=== PATIENT | male | born 1955 | race Caucasian/White ===

== ENCOUNTER → 2019-05-21 11:10 | Outpatient (CLI) | payer MEDICARE, OTHER, SELFPAY ==
[2019-05-21 10:32] VITALS: BMI 37.9
--- NOTE | 2019-05-21 11:15 | RAD_ITS ---
STUDY: X-RAY CHEST REASON FOR EXAM: Male, 64 years old. SOB -- CABG 2002, 3 stents 2014, 2 stents 2019 -- aortic valve replacement TECHNIQUE: PA and lateral views of the chest. COMPARISON: 06/27/2014 FINDINGS: Status post median sternotomy. The lungs are clear and expanded. There is no demonstrated pleural abnormality. Normal size heart. Normal mediastinum and héctor. Normal visualized pulmonary arteries. Normal visualized aortic arch and descending thoracic aorta. Normal visualized thoracic spine. Normal visualized ribs, clavicles, and shoulders. There is no demonstrated abnormality of the visualized soft tissue structures of the upper abdomen. RAD/Chest PA and Lateral IMPRESSION: No active disease. Electronically Signed: Rios Rosario MD at 12:08 EST Tel , Service support ,
[2019-05-21 12:58] LABS: Anion Gap 3 (5-15); BUN 17 mg/dL (7-18); BUN/Creat Ratio 12.3 RATIO (10-20); Calcium,Total 8.8 mg/dL (8.5-10.1); Chloride 110 mmol/L (98-107); Creatinine, Serum 1.38 mg/dL (0.70-1.30); EST Glomerular Filtration Rate 55 mL/min (>60); Est Glom Filt Rate - Afr Amer 67 mL/min (>60); Glucose 100 mg/dL (74-106); Potassium 3.8 mmol/L (3.5-5.1); Sodium Level 143 mmol/L (136-145)
[2019-05-21 13:28] LABS: BNP,B-Type NATRIURETIC PEPTIDE 77.8 pg/mL (0-100)
== END ==
PROVIDERS: PCP Family Medicine; Referring Provider Internal Medicine Cardiovascular Disease; Visit Provider Internal Medicine Cardiovascular Disease
DX: R06.00 Dyspnea, unspecified (principal); Z95.1 Presence of aortocoronary bypass graft; Z95.2 Presence of prosthetic heart valve
CPT/HCPCS: 36415; 71046; 80048; 83880

== ENCOUNTER → 2020-06-25 05:55 | Outpatient (CLI) | payer MEDICARE, OTHER, SELFPAY ==
[2020-06-18 08:32] VITALS: BMI 33.6
--- NOTE | 2020-06-25 05:59 | ECHOD_ITS ---
Reason For Study: S/P CABG Procedure This was a 2D Doppler, Color Flow transthoracic echocardiogram. Exam performed in department. Left Ventricle Normal LV size. Left ventricular systolic function is normal. The estimated ejection fraction is 65 %. Stage 1 diastolic dysfunction. No regional wall motion abnormalities noted. Aortic Valve Peak aortic valve gradient 18 mmHg. Mean aortic valve gradient 10 mmHg. Stable appearing bioprosthetic aortic valve apparatus. Great Vessels Normal aortic root. The pulmonary artery is normal size. Pericardium/Pleural No pericardial effusion. MMode/2D Measurements & Calculations LVIDd: 4.5 cm IVSd: 1.3 cm LVOT diam: 2.0 cm LVIDs: 3.0 cm LVPWd: 1.2 cm RVDd: 3.1 cm FS: 32.6 % LVOT area: 3.1 cm2 Ao root diam: 3.3 cm LAV(MOD-bp): 39.7 ml LVAd ap4: 28.3 cm2 LAV(MOD-bp) Indexed: 20.2 ml/m2 EDV(MOD-sp4): 82.1 ml LAV(MOD-sp2): 38.1 ml EDV(sp4-el): 84.4 ml LAV(MOD-sp4): 42.6 ml LVAs ap4: 16.0 cm2 ESV(MOD-sp4): 33.8 ml ESV(sp4-el): 32.9 ml EF(MOD-sp4): 58.8 % EF(sp4-el): 61.0 % SV(MOD-sp4): 48.3 ml SV(sp4-el): 51.5 ml LA A4 area: 17.2 cm2 LA dimension(2D): 3.9 cm RA A4 area: 13.1 cm2 Time Measurements MV dec time: 0.23 sec Doppler Measurements & Calculations MV E max wilner: 70.9 cm/sec Lat Peak E' Wilner: 11.6 cm/sec Med Peak E' Wilner: 7.8 cm/sec MV A max wilner: 100.7 cm/sec E/E' lat: 6.1 E/E' med: 9.1 MV E/A: 0.70 Ao V2 max: 212.8 cm/sec LV V1 max: 106.0 cm/sec SV(LVOT): 57.5 ml Ao max P.1 mmHg LV V1 max P.5 mmHg Ao V2 mean: 149.4 cm/sec LV V1 mean P.3 mmHg Ao mean P.3 mmHg LV V1 mean: 70.3 cm/sec Ao V2 VTI: 34.9 cm LV V1 VTI: 18.3 cm COLE(I,D): 1.6 cm2 COLE(V,D): 1.6 cm2 PA V2 max: 125.7 cm/sec Interpretation Summary Normal LV size. Left ventricular systolic function is normal. The estimated ejection fraction is 65 %. Stable appearing bioprosthetic aortic valve apparatus. Mean aortic valve gradient 10 mmHg. Stage 1 diastolic dysfunction. Ordering Physician: Haroldo Noland Referring Physician: DANE RAYMOND Performed By: Jessi Thompson RDCS
--- NOTE | 2020-06-25 15:50 | STRESSREP ---
Stress Test Report Exercise myocardial perfusion stress test. Preoperative stress test for esophageal surgery. 65-year-old man with a history of aortic valve replacement and coronary artery bypass surgery. Stress protocol: Resting EKG demonstrates normal sinus rhythm with a rate of 90 bpm resting blood pressure is 116/74 mmHg. The patient exercised according to the regular Christiano protocol for a total duration of 6 minutes minutes completing stage II of the Christiano protocol the maximum heart rate attained was 151 bpm which was 98% of max impacted heart rate the maximum workload was 7 metabolic equivalents. At rest there were no ST or T wave changes noted to suggest ischemia. At peak exercise there were no ST or T wave changes noted to suggest ischemia. No clinical angina was noted. The peak blood pressure 144/82 mmHg which was good blood pressure response to exercise the rate-pressure product was 21,700. The test was terminated due to dyspnea. Myocardial perfusion protocol. 14.5 mCi of technetium 99m sestamibi was injected at rest. The patient exercised according to regular Christiano protocol for 6 minutes and at peak exercise 44.6 mCi of technetium 99m sestamibi was injected stress images were obtained stress and rest images were reconstructed and compared in the short axis vertical long and horizontal long axis. Gated images were also obtained Perfusion SPECT analysis: Review of the stress images demonstrate normal uptake of tracer noted in all areas of the myocardium the resting images demonstrated a similar pattern. There were no areas of reversibility to suggest ischemia. No previous infarct was noted. Gated SPECT analysis: The gated ejection fraction is noted to be 59%. Conclusion: Normal exercise myocardial perfusion stress test at a moderate workload with no evidence of ischemia. Good functional capacity. No angina noted.
== END ==
PROVIDERS: PCP Family Medicine; Referring Provider Internal Medicine Cardiovascular Disease; Visit Provider Internal Medicine Cardiovascular Disease
DX: Z01.810 Encounter for preprocedural cardiovascular examination (principal); I25.10 Atherosclerotic heart disease of native coronary artery without angina pectoris; R07.9 Chest pain, unspecified
CPT/HCPCS: 78452; 93017; 93306; A9500; A4216

== ENCOUNTER → 2021-01-07 08:44 | Outpatient (CLI) | payer MEDICARE, OTHER, SELFPAY ==
[2021-01-07 10:05] LABS: AST(SGOT) 14 U/L (15-37); Alanine Aminotransfer ALT/SGPT 27 U/L (16-61); Albumin, Serum 3.3 g/dL (3.2-5.0); Alkaline Phosphatase 102 U/L (45-117); Bilirubin, Direct 0.23 mg/dL (0.00-0.30); Cholesterol 126 mg/dL (200); Globulin 3.4 g/dL (2.2-4.2); High Density Lipoprotein 44 mg/dL; Protein, Total 6.7 g/dL (6.4-8.2); Triglycerides 113 mg/dL; Very Low Density Lipoprotein 23 mg/dL (5-40)
== END ==
PROVIDERS: PCP Family Medicine; Referring Provider Nurse Practitioner Family; Visit Provider Nurse Practitioner Family
DX: E78.5 Hyperlipidemia, unspecified (principal); I10 Essential (primary) hypertension; Z95.1 Presence of aortocoronary bypass graft; Z95.5 Presence of coronary angioplasty implant and graft
CPT/HCPCS: 36415; 80061; 80076

== ENCOUNTER 2021-01-07 12:11 | Observation (INO) | payer MEDICARE, OTHER, SELFPAY ==
[2021-01-07] VITALS (12 sets, daily range): BP systolic 121–142; BP diastolic 69–105; PULSE 65–93; RESP 18–28; TEMP 36.6–37; O2SAT 95–98; BMI 29.1; BMI 28.6
--- NOTE | 2021-01-07 12:23 | RAD_ITS ---
STUDY: X-RAY CHEST REASON FOR EXAM: Male, 65 years old. SOB TECHNIQUE: Single AP portable view of the chest. COMPARISON: Comparison is made FINDINGS: There are now small bilateral pleural effusions with bibasilar atelectasis. Hyperinflation. Sternal cerclage wires and vascular clips are present from a prior sternotomy and coronary artery bypass graft procedure (CABG). Normal mediastinum and héctor. Normal visualized pulmonary arteries. Normal visualized aortic arch and descending thoracic aorta. Normal visualized thoracic spine. Normal visualized ribs, clavicles, and shoulders. There is no demonstrated abnormality of the visualized soft tissue structures of the upper abdomen. RAD/Chest 1 View (Portable) IMPRESSION: Small bilateral pleural effusions with bibasilar atelectasis. Electronically Signed: Nino Wood MD at 13:32 EDT , Service support ,
--- NOTE | 2021-01-07 12:23 | EKG12_ITS ---
Test Reason : SOB Blood Pressure : / mmHG Vent. Rate : 072 BPM Atrial Rate : 072 BPM P-R Int : 130 ms QRS Dur : 094 ms QT Int : 416 ms P-R-T Axes : 046 055 001 degrees QTc Int : 455 ms Sinus rhythm with marked sinus arrhythmia Otherwise normal ECG Confirmed by RONA MANNING, PATRICK ([id number]), video editor CHRISTIANO OWENS ([id number]) on 01/10/2021 8:09:44 AM Referred By: Martha Anderson Confirmed By:PARTICK REA MD
--- NOTE | 2021-01-07 14:06 | EKG12_ITS ---
Test Reason : AM Blood Pressure : / mmHG Vent. Rate : 060 BPM Atrial Rate : 060 BPM P-R Int : 136 ms QRS Dur : 098 ms QT Int : 430 ms P-R-T Axes : 018 013 027 degrees QTc Int : 430 ms Sinus rhythm with marked sinus arrhythmia Otherwise normal ECG When compared with ECG of 07-JAN-2021 13:33, MANUAL COMPARISON REQUIRED, DATA IS UNCONFIRMED Confirmed by RONA MANNING, PATRICK ([id number]), newspaper copy editor CHRSITIANO OWENS ([id number]) on 01/10/2021 12:56:52 PM Referred By: Martha Anderson Confirmed By:PATRICK REA MD
[2021-01-07 14:13] LABS: Basophil# 0.03 X10^3/uL; Basophil% 0.8 % (0-1); Eosinophil# 0.04 X10^3/uL; Hematocrit 36.5 % (40-54); Hemoglobin 11.8 g/dL (13.0-16.5); Lymphocyte % 12.8 % (19-41); Mean Corp Hgb Conc 32.3 g/dL (32-36); Mean Corpuscular Hgb 28.7 pg (27.0-32.0); Mean Corpuscular Volume 88.8 fL (80-94); Mean Platelet Vol. 9.9 fl (6.2-12.0); Monocyte# 0.34 X10^3/uL; Monocyte% 8.7 % (0-10); NRBC Flagged by Analyzer 0 % (0-5); Neutrophil # 2.98 X10^3/uL (2.7-7.7); Neutrophil % 75.9 % (47-70); POSITIVE DIFFERENTIAL YES; Platelet Count 144 K/mm3 (150-450); RBC Distribution Width CV 14.6 % (11.6-14.6); RBC Distribution Width SD 47.3 fl (35.1-43.9); Red Blood Count 4.11 M/mm3 (4.6-6.2); White Blood Count 3.9 K/mm3 (4.4-11.0)
[2021-01-07 14:14] LABS: Differential Indicated SCAN CRITERIA MET
--- NOTE | 2021-01-07 14:15 | EDS_ITS ---
HPI History of Present Illness Chief Complaint: Shortness of Breath Informant: patient Onset/Context/Timing Onset: Days Context: gradual Timing: Intermittent Quality: Positive for Dyspnea on exertion; Negative for Orthopnea, PND and Wheezing Current Severity: Gone Maximum Severity: Mild Worsened by: Exertion Relieved by: Rest Associated Symptoms Negative for cough, rhinorrhea, post nasal drip, ear pain, fever, sore throat, subjective, chills, sweats, clear sputum, white sputum, yellow sputum or green sputum Chest Pain: Positive for None Narrative Narrative: 65-year-old male history of prior quadruple bypass 2002. He also has 5 cardiac stents. He denies any prior CT. He is also had a TAVR procedure in 2019. Patient also had a history of esophageal CA for which earlier this year he had a partial esophagectomy and partial gastrectomy. Denies ever having a DVT or PE. No hemoptysis. No leg pain or swelling. He denies any chest pain. States he has noticed recently has been more short of breath primarily with exertion. They also commented today when he was at his oncologist office. He states he parked down from the emergency department as he walked up the ramp he got very short of breath. That is now since resolved. He had similar shortness of breath when he had coronary blockage. PE Risk Factors: Positive for Cancer; Negative for OCP + Smoking + > 35, Prior DVT or PE, Recent immobilization, Recent surgery and Recent travel Prior similar symptoms: Yes Recent Illness/Hospitalization: No [facility] Medical History (Updated 01/07/21 @ 15:[address] Rikki Jernigan MD) abnormal stress test Angina pectoris 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 angina pectoris Atherosclerosis of coronary artery of [place] heart without angina pectoris Atherosclerotic heart disease of [place] coronary artery with other forms of angina pectoris Encounter for long-term current use of high risk medication Essential (primary) hypertension Exertional chest pain Hyperlipidemia Ischemic heart disease due to coronary artery obstruction Non-rheumatic aortic stenosis Nonrheumatic aortic valve disorder Syncope and collapse URI (upper respiratory infection) Home Medications aspirin 81 mg PO DAILY@0800 01/23/14 [History Last Taken 01/06/21] nitroglycerin 0.4 mg sublingual tablet 0.4 mg SUBLINGUAL Q5M PRN #25 tab 01/29/19 [Rx Last Taken Unknown] losartan 100 mg tablet 100 mg PO DAILY #90 tab 09/24/20 [Rx Last Taken 01/06/21] metoprolol tartrate 25 mg tablet 25 mg PO BID #180 tab 09/24/20 [Rx Last Taken 01/06/21] amlodipine 10 mg tablet 10 mg PO DAILY #90 tab 09/28/20 [Rx Last Taken 01/06/21] atorvastatin 80 mg tablet 80 mg PO QHS #90 tab 12/30/20 [Rx Last Taken 01/06/21] ezetimibe 10 mg tablet 10 mg PO DAILY #90 tab 12/30/20 [Rx Last Taken 01/06/21] ondansetron HCl 8 mg PO Q8H PRN 01/07/21 [History Last Taken 01/06/21] pantoprazole 40 mg PO DAILY 01/07/21 [History Last Taken 01/06/21] Allergy/AdvReac Type Severity Reaction Status Date / Time No Known Allergies Allergy Verified 01/07/21 12:15 environmental Allergy Intermediate itchy eyes Uncoded 01/07/21 12:15 Family History Father Heart disease Myocardial infarction Hypertension Brother Hypertension Sister Heart disease Myocardial infarction Surgical History (Updated 01/07/21 @ 15:[address] Rikki Jernigan MD) H/O coronary artery bypass surgery (09/18/02) History of aortic valve replacement (03/03/19) History of coronary artery stent placement (12/31/18) History of hernia repair History of tonsillectomy Social History Smoking Status: Never smoker alcohol intake: never substance use type: does not use caffeine: No what type of physical activity do you participate in: walking frequency: daily ROS ROS ED ROS Narrative Denies recent illness. Review of Systems ROS Unobtainable: Denies due to encephalopathy Constitutional Constitutional ED: Denies chills or fever(s) Eyes Eyes: Denies change in vision ENT ENT ED: Denies ear pain or sore throat Cardiovascular Cardiovascular: Denies chest pain, orthopnea or palpitations Respiratory/Chest Respiratory/Chest: Reports dyspnea and dyspnea on exertion; Denies cough, orth opnea or sputum Gastrointestinal Gastrointestinal: Denies abdominal pain, constipation, diarrhea, nausea or vomiting Genitourinary Genitourinary ED: Reports dysuria; Denies hematuria Musculoskeletal Musculoskeletal: Denies myalgias Integumentary Denies rash Neurologic Neurologic: Denies headache(s) Psychiatric Psychiatric: Denies depression Endocrine Endocrinology: Denies polyuria Hematologic/Lymphatic Hematologic/Lymphatic: Denies easy bruising Allergic/Immunologic Allergic/Immunologic ED: Denies urticaria EXAM Physical Exam Narrative Exam Narrative: Six 5-year-old male no acute distress currently symptom-free. Exam unremarkable. Calves nontender without edema or cords. Heart regular rate and rhythm in the 90s. Lungs are clear. Const Vital Signs: 01/07/21 12:12 01/07/21 14:03 01/07/21 14:05 Temperature 97.8 F Temperature Source Temporal Pulse Rate 93 67 Respiratory Rate 28 H 24 H Respiratory Effort Short of Breath Respiratory Depth Normal Respiratory Pattern Hyperpnea Blood Pressure 140/105 H 138/79 H Blood Pressure Mean 116 98 Pulse Ox 97 97 Oxygen Delivery Method Room Air Room Air Room Air 01/07/21 14:10 Temperature Temperature Source Pulse Rate Respiratory Rate Respiratory Effort Respiratory Depth Respiratory Pattern Blood Pressure Blood Pressure Mean Pulse Ox 97 Oxygen Delivery Method Room Air Positive well nourished and well developed; Negative for obese, cachectic, contractures or unkempt General Appearance ED: well developed and NAD; Negative for unkempt, cachectic or contractures Nutritional Appearance: Negative for cachectic or obese HEENT Reports moist mucous membranes atraumatic; Negative for trauma or tenderness Eyes PERRL and EOMs intact bilaterally General Eye ED: Negative for pale conjunctiva or scleral icterus Neck no lymphadenopathy, supple, no meningeal signs and no JVD General: Negative for tenderness Resp normal respiratory effort and clear to auscultation bilaterally Auscultation: Negative for rales, rhonchi or wheezes Cardio regular rate, regular rhythm, S1 normal heart sound, S2 normal heart sound and no murmurs GI non-tender, non-distended and no masses Auscultation: normoactive bowel sounds Palpation: soft; Negative for tender or guarding Back/Spine normal to inspection; Negative for no CVA tenderness Extremity normal to inspection General Extremety ED: Negative for edema or tenderness General Extremity: Negative for edema Neuro oriented x3 Sensorium / Orientation: alert, oriented to person, oriented to place and oriented to time; Negative for orientation impaired, confused, lethargic or stuporous Motor Exam: strength 5/5 throughout Psych mental status grossly normal Appearance: Negative for unkempt Skin no wounds Lesions: no lesions Rashes: no rashes MDM MDM MDM Narrative Medical decision making narrative: Six 5-year-old male with a history of cardiac disease with 5 stents and prior quadruple bypass. With recent onset of exertional dyspnea. Undergoing a cardiac work-up. His Covid was negative his chest x-ray showed a small right pleural effusion. Repeat exam patient doing well at 3:20 PM. I did discuss with his oncologist who called in who wanted me to add a D-dimer. Hospitalist will admit for exertional dyspnea. Patient will be admitted to the PCU. Lab Data Attestation: I reviewed the patient's lab results. Lab results narrative: CBC shows a white count of 3.9. Hemoglobin 11.8. Platelets 144. Electrolytes unremarkable gap is 7 creatinine 1.3. Troponin XV. Labs: Laboratory Results - last 24 hr 01/07/21 01/07/21 01/07/21 14:00 14:00 14:00 WBC 3.9 L RBC 4.11 L Hgb 11.8 L Hct 36.5 L MCV 88.8 MCH 28.7 MCHC 32.3 RDW Std Deviation 47.3 H RDW Coeff of Marcos 14.6 Plt Count 144 L MPV 9.9 Immature Gran % (Auto) 0.800 Neut % (Auto) 75.9 H Lymph % (Auto) 12.8 L [place] % (Auto) 8.7 Eos % (Auto) 1.0 Baso % (Auto) 0.8 Absolute Neuts (auto) 3.0 Absolute Lymphs (auto) 0.50 L Nucleated RBC % 0 Sodium 142 Potassium 4.0 Chloride 108 H Carbon Dioxide 27.0 Anion Gap 7 BUN 17 Creatinine 1.33 H Estim Creat Clear Calc 56.41 Est GFR (MDRD) Af Amer 69 Est GFR (MDRD) Non-Af 57 L BUN/Creatinine Ratio 12.8 Glucose 84 Calcium 9.0 Troponin I High Sens 15 Procalcitonin 0.06 Radiography Chest X-Ray - ED: 1 View, Read by ED Physician, Read by Radiologist, Heart, Mediastinum, Bony Structures, No Acute Disease, Right Effusion and Left Effusion Diagnostic Testing: Radiology Impression Chest X-Ray 01/07/21 12:23 IMPRESSION: Small bilateral pleural effusions with bibasilar atelectasis. Electronically Signed: Nino Wood MD at 13:32 EDT , Service support , Portable chest x-ray interpreted by the myself the radiologist shows chronic changes and small bilateral effusions. Rhythm Strip Rhythm Strip: Sinus Rhythm Rate: 72 Ectopy: None EKG Initial EKG: Attestation: I personally reviewed and interpreted this EKG as follows: Interpretation: Sinus Rhythm and No Acute Injury Pattern Comments: Sinus rhythm rate of [address] no acute signs of CT or ischemia. Discharge Plan Triage Chief Complaint: Shortness of Breath ED Provider: Rikki Jernigan Dx/Rx/DC Orders Clinical Impression: Exertional dyspnea, Esophageal carcinoma, History of acquired heart disease, History of four vessel coronary artery bypass graft Prescriptions: No Action nitroglycerin 0.4 mg tablet, sublingual 0.4 mg SUBLINGUAL Q5M PRN (Reason: Chest Pain) Qty: 25 RF: 3 ezetimibe 10 mg tablet 10 mg PO DAILY Qty: 90 RF: 3 atorvastatin 80 mg tablet 80 mg PO QHS Qty: 90 RF: 3 aspirin 81 MG tablet,chewable 81 mg PO DAILY@0800 RF: 0 ondansetron HCl 8 mg tablet 8 mg PO Q8H PRN (Reason: Nausea) RF: 0 pantoprazole 40 mg tablet,delayed release (DR/EC) 40 mg PO DAILY RF: 0 losartan 100 mg tablet 100 mg PO DAILY Qty: 90 RF: 3 metoprolol tartrate 25 mg tablet 25 mg PO BID Qty: 180 RF: 3 amlodipine 10 mg tablet 10 mg PO DAILY Qty: 90 RF: 3 Primary Care Provider: Yaw Singh Referrals: Yaw Singh MD [Primary Care Provider] - Disposition Disposition: Acute Care Hospital [facility]
[2021-01-07 14:33] LABS: Anion Gap 7 (5-15); BUN 17 mg/dL (7-18); BUN/Creat Ratio 12.8 RATIO (10-20); Chloride 108 mmol/L (98-107); Creatinine, Serum 1.33 mg/dL (0.70-1.30); EST Glomerular Filtration Rate 57 mL/min (>60); Est Glom Filt Rate - Afr Amer 69 mL/min (>60); Estimated Creatinine Clearance 56.41 ml/min; Glucose 84 mg/dL (74-106); Sodium Level 142 mmol/L (136-145); Troponin-I HS 15 pg/mL (3.0-78.0)
[2021-01-07 14:36] LABS: Procalcitonin 0.06 ng/mL (0.00-0.09)
--- NOTE | 2021-01-07 15:24 | HP.PCM.HOS_ITS ---
[facility] - General General Date of Admission: 01/07/21 Date of Service: 01/07/21 Chief Complaint: Shortness of breath HPI Narrative NICKO ROSALES, is a 65 M who presents with shortness of breath that came on suddenly. Patient was on his way to his oncology appointment when he felt very short of breath. He has history of esophageal CA diagnosed on 13 September. He is going through radiation and chemotherapy. He had gastrectomy as well as osteoph ytectomy on 09 August. Patient stated that he had one third of his stomach and two thirds of his esophagus removed. He denied any complaints of chest pain or dizziness or palpitation. No leg swelling. No weight gain. Shortness of breath was worse with exertion. His vitals in the ED have been stable. He denied any fever or chills. [facility] Medical History abnormal stress test Angina pectoris 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 angina pectoris Atherosclerosis of coronary artery of [place] heart without angina pectoris Atherosclerotic heart disease of [place] coronary artery with other forms of angina pectoris Encounter for long-term current use of high risk medication Essential (primary) hypertension Exertional chest pain Hyperlipidemia Ischemic heart disease due to coronary artery obstruction Non-rheumatic aortic stenosis Nonrheumatic aortic valve disorder Syncope and collapse URI (upper respiratory infection) Home Medications aspirin 81 mg PO DAILY@0800 01/23/14 [History Last Taken 01/06/21] nitroglycerin 0.4 mg sublingual tablet 0.4 mg SUBLINGUAL Q5M PRN #25 tab 01/29/19 [Rx Last Taken Unknown] losartan 100 mg tablet 100 mg PO DAILY #90 tab 09/24/20 [Rx Last Taken 01/06/21] metoprolol tartrate 25 mg tablet 25 mg PO BID #180 tab 09/24/20 [Rx Last Taken 01/06/21] amlodipine 10 mg tablet 10 mg PO DAILY #90 tab 09/28/20 [Rx Last Taken 01/06/21] atorvastatin 80 mg tablet 80 mg PO QHS #90 tab 12/30/20 [Rx Last Taken 01/06/21] ezetimibe 10 mg tablet 10 mg PO DAILY #90 tab 12/30/20 [Rx Last Taken 01/06/21] ondansetron HCl 8 mg PO Q8H PRN 01/07/21 [History Last Taken 01/06/21] pantoprazole 40 mg PO DAILY 01/07/21 [History Last Taken 01/06/21] Allergy/AdvReac Type Severity Reaction Status Date / Time No Known Allergies Allergy Verified 01/07/21 12:15 environmental Allergy Intermediate itchy eyes Uncoded 01/07/21 12:15 Family History Father Heart disease Myocardial infarction Hypertension Brother Hypertension Sister Heart disease Myocardial infarction Surgical History H/O coronary artery bypass surgery (09/18/02) History of aortic valve replacement (03/03/19) History of coronary artery stent placement (12/31/18) History of hernia repair History of tonsillectomy Social History Smoking Status: Never smoker alcohol intake: never substance use type: does not use caffeine: No what type of physical activity do you participate in: walking frequency: daily ROS ROS Narrative Constitutional: Reports: Denies: Anorexia, Chills, Fever, Night Sweats, Weight Change Eyes: Denies: Blurred vision, Cataracts, Conjunctivae Inflammation, Pain, Redness, Vision Change HEENT: Denies: Difficulty Hearing, Difficulty Swallowing, Head Aches, Hearing Changes, Sinus Congestion, Sinus Drainage Cardiovascular: See HPI Respiratory: See HPI Gastrointestinal: Denies: Abdominal Pain, Nausea, Vomiting Genitourinary: Denies: Dysuria Musculoskeletal: Denies: Joint Pain, Joint stiffness, Joint swelling, Joint Tenderness Skin: Denies: Rash, Wounds Neurological: Denies: Numbness, Tingling, Focal weakness Vital Signs Vital Signs Vital Signs: 01/07/21 12:12 01/07/21 14:03 01/07/21 14:05 Temperature 97.8 F Temperature Source Temporal Pulse Rate 93 67 Respiratory Rate 28 H 24 H Respiratory Effort Short of Breath Respiratory Depth Normal Respiratory Pattern Hyperpnea Blood Pressure 140/105 H 138/79 H Blood Pressure Mean 116 98 Pulse Ox 97 97 Oxygen Delivery Method Room Air Room Air Room Air 01/07/21 14:10 Temperature Temperature Source Pulse Rate Respiratory Rate Respiratory Effort Respiratory Depth Respiratory Pattern Blood Pressure Blood Pressure Mean Pulse Ox 97 Oxygen Delivery Method Room Air Weight Weight: 92.079 kg Body Mass Index (BMI) 29.1 Physical Exam Narrative Physical exam: General: Alert, Oriented x3, Cooperative, No apparent distress, Well developed HEENT: Atraumatic Oral: Moist Mucosa Neck: Supple Lungs: Clear to auscultation Cardiovascular: HS I+II, regular, no murmurs Abdomen: Bowel Sounds Present, Soft, Non Tender Extremities: No edema Results Lab / Micro Data Result Diagrams: 01/07/21 14:00 01/07/21 14:00 Labs: Laboratory Results - last 24 hr 01/07/21 14:00: WBC 3.9 L, RBC 4.11 L, Hgb 11.8 L, Hct 36.5 L, MCV 88.8, MCH 28.7, MCHC 32.3, RDW Std Deviation 47.3 H, RDW Coeff of Marcos 14.6, Plt Count 144 L, MPV 9.9, Immature Gran % (Auto) 0.800, Neut % (Auto) 75.9 H, Lymph % (Auto) 12.8 L, [place] % (Auto) 8.7, Eos % (Auto) 1.0, Baso % (Auto) 0.8, Absolute Neuts (auto) 3.0, Absolute Lymphs (auto) 0.50 L, Nucleated RBC % 0 01/07/21 14:00: Sodium 142, Potassium 4.0, Chloride 108 H, Carbon Dioxide 27.0, Anion Gap 7, BUN 17, Creatinine 1.33 H, Estim Creat Clear Calc 56.41, Est GFR (MDRD) Af Amer 69, Est GFR (MDRD) Non-Af 57 L, BUN/Creatinine Ratio 12.8, Glucose 84, Calcium 9.0, Troponin I High Sens 15 01/07/21 14:00: Procalcitonin 0.06 Micro: Microbiology 01/07/21 13:20 Nasal Secretion SARS-CoV-2 Antigen (Rapid) - Final Rhythm Strip Rhythm Strip: Sinus Rhythm Rate: 72 Ectopy: None Radiology Impression Chest X-Ray 01/07/21 12:23 IMPRESSION: Small bilateral pleural effusions with bibasilar atelectasis. Electronically Signed: Nino Wood MD at 13:32 EDT , Service support , Assessment & Plan Assessment/Plan (1) Exertional dyspnea: (2) Essential (primary) hypertension: (3) Esophageal carcinoma: (4) History of four vessel coronary artery bypass graft: PLAN: 1. Dyspnea on exertion, sudden onset, concerning for possible acute PE Patient's oxygen saturation is 98% on room air in the ED D-dimer is elevated at 1.83. BNP is 52.3. Admitting troponin is 15 Will get a CTA of the of the chest to rule out acute PE Gentle IV fluids in the light of CKD Check 2D echo Consider stress test if CTA chest is negative for acute PE Trend cardiac enzymes 2. Esophageal CA, status post surgery, radiation therapy and chemotherapy, currently on Opdivo Follow-up with oncology in the outpatient 3. Pancytopenia likely secondary to chemotherapy, will trend 4. CKD stage IIIb, admitting creatinine is 1.33, baseline creatinine between 1.1 and 1.3 Continue on gentle IV fluids, trend 5. CAD status post CABG, status post stent/status post aortic valve replacement/hypertension/hyperlipidemia, all remained stable Continue on ezetimibe, losartan, metoprolol, amlodipine, aspirin I discussed and explained in details the various types of CODE STATUS-full code, DNR CCA, DNR CC. Patient chose to be full code Time spent discussing CODE STATUS 16 minutes Charges/Coding Visit Charges Inpatient E&M: 69160 Init Hosp L3 Procedures Hospitalists Procedures: 91654 Advncd Care Plan 30 Min
--- NOTE | 2021-01-07 15:39 | NURSING ---
PCU OBS NUAMAH EXERTIONAL DYSPNEA, HS CAD, HX CABG, ES CA
[2021-01-07 16:02] LABS: BNP,B-Type NATRIURETIC PEPTIDE 52.3 pg/mL (0-100)
--- NOTE | 2021-01-07 16:17 | ECHOD_ITS ---
Reason For Study: Dyspnea/SOB Procedure This was a 2D Doppler, Color Flow transthoracic echocardiogram. Exam performed in department. Left Ventricle Normal left ventricle. The estimated ejection fraction is EF 55-60 %. Right Ventricle Normal right ventricle. Normal systolic function. Atria Normal left atrium. Normal right atrium. Mitral Valve There is mild mitral annular calcification. Tricuspid Valve Normal tricuspid valve. Aortic Valve Normal Apperaing Bioprothetic AV function with trivial AI COLE 2.1 cm2 Mean gradient 12.2 mmhg. Pulmonic Valve The pulmonic valve is not well visualized. Great Vessels Normal aortic root. Pericardium/Pleural No pericardial effusion. MMode/2D Measurements & Calculations LVIDd: 4.9 cm IVSd: 1.4 cm LVOT diam: 2.0 cm LVIDs: 2.6 cm LVPWd: 1.1 cm LVOT area: 3.3 cm2 RVDd: 2.7 cm FS: 45.9 % Ao root diam: 3.4 cm LAV(MOD-bp): 36.0 ml LA A4 area: 12.5 cm2 LAV(MOD-bp) Indexed: 17.1 ml/m2 LAV(MOD-sp2): 46.0 ml LAV(MOD-sp4): 27.5 ml LA dimension(2D): 4.6 cm RA A4 area: 11.9 cm2 Doppler Measurements & Calculations MV E max wilner: 92.0 cm/sec Lat Peak E' Wilner: 7.8 cm/sec Med Peak E' Wilner: 4.0 cm/sec MV A max wilner: 112.0 cm/sec E/E' lat: 11.8 E/E' med: 23.0 MV E/A: 0.82 Ao V2 max: 233.8 cm/sec LV V1 max: 147.2 cm/sec SV(LVOT): 107.1 ml Ao max P.9 mmHg LV V1 max P.7 mmHg Ao V2 mean: 167.3 cm/sec LV V1 mean P.5 mmHg Ao mean P.2 mmHg LV V1 mean: 112.5 cm/sec Ao V2 VTI: 42.1 cm LV V1 VTI: 32.5 cm COLE(I,D): 2.5 cm2 COLE(V,D): 2.1 cm2 PA V2 max: 128.1 cm/sec TR max wilner: 240.1 cm/sec TR max P.1 mmHg ECHO/Echo Complete Interpretation Summary The estimated ejection fraction is EF 55-60 %. Normal LV systolic functhion Mild LVH Grade # I Diastolic dysfunction Normal Apperaing Bioprothetic AV function with trivial AI COLE 2.1 cm2 Mean gradient 12.2 mmhg Ordering Physician: Martha Anderson Referring Physician: Yaw Singh Performed By: Flora Whitney, IRIS, RVT
[2021-01-07 16:56] LABS: D-Dimer Quantitative (DVT/PE) 1.83 FEU/ug/m (0.27-0.49)
--- NOTE | 2021-01-07 18:20 | CT_ITS ---
STUDY: CTA CHEST REASON FOR EXAM: Male, 65 years old. Elevated d-dimer. Labored breathing since 11:00 AM. History of cardiac stents. CABG procedure. Aortic valve replacement and esophageal cancer RADIATION DOSAGE (If Supplied By Facility): CTDIvol = ( 14.05 ) mGy, DLP = ( 499.23 ) mGycm TECHNIQUE: The examination was performed with the intravenous administration of IV 100mL Isovue-370. Post-processing of the angiographic images was performed, with multiplanar reformation and 3D reconstruction. Individualized dose optimization techniques were used for this CT. COMPARISON: Chest, 01/07/2021. CTA of the chest, 06/27/2014. FINDINGS: Normal enhancement of the main pulmonary artery and right and left pulmonary arteries. Normal enhancement of the bilateral peripheral pulmonary arteries. There is no demonstrated pulmonary embolism. Normal thoracic aorta and visualized great vessels. There is no demonstrated aortic dissection. Normal heart and pericardium. Evidence of CABG procedure and aortic valve replacement. There is evidence of a gastric pull-up procedure to the level of the nirmala. Mediastinum is otherwise unremarkable. Normal hilar regions. Normal visualized trachea and bronchi. The lungs are well expanded. Small bilateral pleural effusions with subsegmental atelectasis. No acute infiltrate or mass in the lungs. Normal pleura. Evidence of median sternotomy. Normal osseous structures. There are calcified granulomata within the spleen. CT/CTA Chest W/WO Contrast IMPRESSION: 1. No evidence of pulmonary embolus. 2. No aortic dissection or aneurysm. 3. Evidence of resection of the distal esophagus with gastric pull-up procedure. 4. Bilateral pleural effusions and atelectasis. 5. Evidence of prior CABG procedure. Electronically Signed: Dave Vásquez DO at 19:52 EDT Tel [phone], Service support ,
[2021-01-07] MEDS: 0.9% Normal Saline 1,000 ML 100 ML IV (20:25)
[2021-01-07] MEDS: 0.9% Saline Lock 10 ML Syringe IV (20:28)
--- NOTE | 2021-01-07 20:40 | PCS.PANDOC ---
PANDEMIC DOCUMENTATION INITIATED: Date: 11/22/2020 Time: 190
[2021-01-07 21:09] LABS: Troponin-I HS 14 pg/mL (3.0-78.0)
[2021-01-07] MEDS: Metoprolol Tartrate 25 MG Tablet PO (22:02)
[2021-01-07] MEDS: Atorvastatin Calcium 80 MG Tablet PO (22:03)
[2021-01-07 23:18] LABS: Troponin-I HS 14 pg/mL (3.0-78.0)
[2021-01-08] VITALS (9 sets, daily range): BP systolic 125–141; BP diastolic 75–86; PULSE 62–91; RESP 16–18; TEMP 36.4–36.9; O2SAT 96–98
[2021-01-08 02:43] LABS: Absolute Lymphocyte Count 0.42 X10^3/uL (0.83-4.51); Absolute Neutrophil Count 2.8 X10^3/uL (2.0-7.7); Basophil# 0.03 X10^3/uL; Basophil% 0.8 % (0-1); Eosinophils% 2.7 % (0-5); Hematocrit 33.2 % (40-54); Hemoglobin 10.5 g/dL (13.0-16.5); Lymphocyte # 0.42 X10^3/ul (0.83-4.51); Lymphocyte % 11.4 % (19-41); Mean Corp Hgb Conc 31.6 g/dL (32-36); Mean Corpuscular Hgb 28.4 pg (27.0-32.0); Mean Corpuscular Volume 89.7 fL (80-94); Mean Platelet Vol. 9.7 fl (6.2-12.0); Monocyte# 0.35 X10^3/uL; Monocyte% 9.5 % (0-10); NRBC Flagged by Analyzer 0 % (0-5); Neutrophil # 2.76 X10^3/uL (2.7-7.7); Neutrophil % 74.8 % (47-70); POSITIVE DIFFERENTIAL YES; Platelet Count 131 K/mm3 (150-450); RBC Distribution Width CV 14.7 % (11.6-14.6); RBC Distribution Width SD 47.9 fl (35.1-43.9); White Blood Count 3.7 K/mm3 (4.4-11.0)
[2021-01-08 02:56] LABS: Differential Indicated SCAN CRITERIA MET
[2021-01-08 03:08] LABS: Troponin-I HS 13 pg/mL (3.0-78.0)
[2021-01-08 03:12] LABS: AST(SGOT) 11 U/L (15-37); Alanine Aminotransfer ALT/SGPT 23 U/L (16-61); Albumin, Serum 2.8 g/dL (3.2-5.0); Alkaline Phosphatase 85 U/L (45-117); Anion Gap 6 (5-15); BUN 16 mg/dL (7-18); BUN/Creat Ratio 13.6 RATIO (10-20); Calcium,Total 8.4 mg/dL (8.5-10.1); Chloride 108 mmol/L (98-107); Creatinine, Serum 1.18 mg/dL (0.70-1.30); EST Glomerular Filtration Rate 66 mL/min (>60); Est Glom Filt Rate - Afr Amer 79 mL/min (>60); Estimated Creatinine Clearance 63.58 ml/min; Globulin 2.9 g/dL (2.2-4.2); Glucose 94 mg/dL (74-106); Potassium 3.9 mmol/L (3.5-5.1); Protein, Total 5.7 g/dL (6.4-8.2); Sodium Level 141 mmol/L (136-145)
[2021-01-08 04:24] LABS: Differential Comment SCANNED
[2021-01-08] MEDS: amLODIPine 10 MG Tablet PO (06:36)
[2021-01-08] MEDS: 0.9% Normal Saline 1,000 ML 100 ML IV (06:37)
[2021-01-08] MEDS: Losartan Potassium 100 MG Tablet PO (06:37)
--- NOTE | 2021-01-08 11:59 | PCM.DC ---
Discharge Instructions Diet Discharge Diet: No restrictions Activity Discharge Activity: Return to Normal Activity Weight Bearing Status: Weight bearing as tolerated Dressing / Incision Call your doctor if you observe: Fever of 101 or Higher, Numbness or Tingling, Shortness of breath, Dizziness, Chest pain, Increased palpitations (irregular heartbeat) and Calf discomfort Follow Up Care Please Follow Up With: Primary care provider When: Within the next two weeks. Test Results: Test results from this visit will be discussed in further detail at your follow-up appointment, if applicable. Discharge Plan Admission Admit Date/Time: 01/07/21 15:18 Primary Reason for Your Visit: Shortness of breath Attending Provider: Kody Avila Primary Care Provider: Yaw Singh Instructions Additional Instructions / Restrictions: Patient Problems: Altered Health Status related to Hospitalization Patient Goals: *Optimal Level of Health *Keep Appointments *Medication Compliance *Remain Safe Discharge Orders/Prescriptions Prescriptions: Continued nitroglycerin 0.4 mg tablet, sublingual 0.4 mg SUBLINGUAL Q5M PRN (Reason: Chest Pain) Qty: 25 RF: 3 ezetimibe 10 mg tablet 10 mg PO DAILY Qty: 90 RF: 3 atorvastatin 80 mg tablet 80 mg PO QHS Qty: 90 RF: 3 aspirin 81 MG tablet,chewable 81 mg PO DAILY@0800 RF: 0 ondansetron HCl 8 mg tablet 8 mg PO Q8H PRN (Reason: Nausea) RF: 0 pantoprazole 40 mg tablet,delayed release (DR/EC) 40 mg PO DAILY RF: 0 losartan 100 mg tablet 100 mg PO DAILY Qty: 90 RF: 3 metoprolol tartrate 25 mg tablet 25 mg PO BID Qty: 180 RF: 3 amlodipine 10 mg tablet 10 mg PO DAILY Qty: 90 RF: 3 Referrals / Follow Up: Yaw Singh MD [Primary Care Provider] - Within 2 Weeks Disposition Disposition (needs filled in before D/C Order can be placed): Home, Self Care
[2021-01-08] MEDS: Aspirin 81 MG TAB.CHEW PO (12:21)
[2021-01-08] MEDS: Ezetimibe 10 MG Tablet PO (12:21)
[2021-01-08] MEDS: Pantoprazole Sodium 40 MG Tablet PO (12:22)
[2021-01-08] MEDS: Metoprolol Tartrate 25 MG Tablet PO (12:22)
--- NOTE | 2021-01-08 12:45 | STRESSREP_ITS ---
Stress Test Report Pharmacologic Lexiscan sestamibi myocardial perfusion stress test. Indication; 65-year-old patient presented with symptoms shortness of breath History of esophageal cancer diagnosed in September 13 and treated with radiation and chemotherapy. History of gastrectomy, hypertension, hyperlipidemia CAD with CABG 2002 subsequently 2014 had drug-eluting stent to the distal RCA and SVG to diagonal drug-eluting stent, history of TAVR 2018 Stress protocol: Resting EKG demonstrates. Normal sinus rhythm. 0.4 mg of regadenoson was infused per usual protocol followed by rapid intravenous saline flush injection continuous EKG monitoring was performed. The maximum heart rate attained was 96 bpm which was 62% of maximum predicted heart . Stress EKG showed[, no significant change from the resting EKG, with maximum heart rate of 96 bpm. Arrhythmia: No arrhythmia demonstrated Symptoms: Patient had no symptoms of chest pain Blood pressure at rest: [152/78 mmHg blood pressure at the end of stress: 140/72 mmHg Myocardial perfusion protocol. [13.8 mCi ]of Technetium 99m Sestamibi was injected at rest. [ 0.4 mg ]of Regadenoson was infused per usual protocol peak infusion[43 mCi ]of Technetium 99m sestamibi was injected. Stress images were obtained stress and rest images were reconstructed and compared in the short axis vertical and horizontal long axis. Gated images were also obtained Perfusion SPECT analysis: Review of the images demonstrate normal uptake of sestamibi at rest, post stress images demonstrate similar uptake of sestamibi to the resting images, homogeneous tracer uptake With no evidence of reversible myocardial ischemia. Reduced tracer uptake in the inferior myocardium consistent with prior inferior PA. Gated SPECT analysis: The calculated ejection fraction is 69 %. Normal left ventricular wall motion and normal LV systolic function Conclusion: Negative Lexiscan sestamibi myocardial perfusion study for reversible myocardial ischemia Normal ventricular systolic function . Gurpreet Briones MD,FACC,[facility]
--- NOTE | 2021-01-08 13:48 | PCM.DC.SUM ---
Documented by User: Angel SOSA 01/08/21 13:56 Providers Date of Admission: 01/07/21 Primary Care Physician: Dr. Yaw Singh MD Reason For Visit: DYSPNEA Diagnosis Discharge Diagnosis (1) Exertional dyspnea: Status: Acute Code(s): R06.00 - Dyspnea, unspecified (2) Essential (primary) hypertension: Status: Chronic Code(s): I10 - Essential (primary) hypertension (3) Esophageal carcinoma: Status: Chronic Code(s): C15.9 - Malignant neoplasm of esophagus, unspecified (4) History of four vessel coronary artery bypass graft: Status: Deleted Code(s): Z95.1 - Presence of aortocoronary bypass graft Medications at Discharge Home Medications aspirin 81 mg PO DAILY@0800 01/23/14 nitroglycerin 0.4 mg sublingual tablet 0.4 mg SUBLINGUAL Q5M PRN #25 tab 01/29/19 losartan 100 mg tablet 100 mg PO DAILY #90 tab 09/24/20 metoprolol tartrate 25 mg tablet 25 mg PO BID #180 tab 09/24/20 amlodipine 10 mg tablet 10 mg PO DAILY #90 tab 09/28/20 atorvastatin 80 mg tablet 80 mg PO QHS #90 tab 12/30/20 ezetimibe 10 mg tablet 10 mg PO DAILY #90 tab 12/30/20 ondansetron HCl 8 mg PO Q8H PRN 01/07/21 pantoprazole 40 mg PO DAILY 01/07/21 Hospital Course Procedures 2-D Echocardiogram, Stress test and Transthoracic echo Summary of Care Provided Minutes Spent on Discharge: 35 Hospital Course: Disposition: Patient to be discharged home. 1) dyspnea on exertion According to patient dyspnea from admission has resolved. Patient is currently satting 98% on room air. D-dimer was elevated on admission, however CTA of the chest did not demonstrate any evidence of PE or arterial dissection. Echocardiogram demonstrates an EF of 60%, normal LV systolic function, mild left ventricular hypertrophy and grade 1 diastolic dysfunction. Echocardiogram appears stable from previous study done in June 2020. Stress test is normal and did not reveal any evidence of cardiac ischemia or infarction. Patient is to follow-up with primary care provider within the next 2 weeks. 2) esophageal cancer Status post surgery and radiation therapy. Patient follows with an oncologist as an outpatient, currently on Opdivo. 3) pancytopenia 3. Pancytopenia likely secondary to chemotherapy, will trend 4) CKD stage IIIb Creatinine is at baseline. Patient seen by Angel Eid PA-C, under the supervision of Margarita. Physical Exam Narrative Patient is a 65-year-old male comfortably resting in bed, alert and orient x3. Patient reports resolution of his shortness of breath from admission. Denies development of any new symptoms overnight. Denies chest pain, shortness of breath, palpitations, hemoptysis, sputum production, fever, chills, N/V/D. Const alert, oriented x3 and no apparent distress HEENT normocephalic, head/scalp atraumatic, hearing grossly normal bilaterally and moist oral mucous membranes Eyes PERRL, EOMs intact bilaterally and conjunctivae normal Neck no lymphadenopathy, supple and no JVD Resp normal respiratory effort, no retractions, no use of accessory muscles and clear to auscultation bilaterally Cardio regular rate, regular rhythm, no murmurs and no JVD GI normal to inspection, nondistended, normoactive bowel sounds, soft to palpation and non-tender Extremity normal to inspection, full ROM and no clubbing, cyanosis or edema Skin no rashes or lesions noted, no wounds and skin turgor normal Neuro CN's II-XII intact bilaterally Psych affect normal Weight / BMI Weight Weight: 201 lb 8.04 oz Body Mass Index (BMI) 28.6 ABG / Lab / Microbiology Data Result Diagrams: 01/08/21 02:31 01/08/21 02:31 Laboratory: Laboratory Results - last 24 hr 01/07/21 14:00: WBC 3.9 L, RBC 4.11 L, Hgb 11.8 L, Hct 36.5 L, MCV 88.8, MCH 28.7, MCHC 32.3, RDW Std Deviation 47.3 H, RDW Coeff of Marcos 14.6, Plt Count 144 L, MPV 9.9, Immature Gran % (Auto) 0.800, Neut % (Auto) 75.9 H, Lymph % (Auto) 12.8 L, [place] % (Auto) 8.7, Eos % (Auto) 1.0, Baso % (Auto) 0.8, Absolute Neuts (auto) 3.0, Absolute Lymphs (auto) 0.50 L, Nucleated RBC % 0, Diff Path Review 01/07/21 14:00: Sodium 142, Potassium 4.0, Chloride 108 H, Carbon Dioxide 27.0, Anion Gap 7, BUN 17, Creatinine 1.33 H, Estim Creat Clear Calc 56.41, Est GFR (MDRD) Af Amer 69, Est GFR (MDRD) Non-Af 57 L, BUN/Creatinine Ratio 12.8, Glucose 84, Calcium 9.0, Troponin I High Sens 15 01/07/21 14:00: Procalcitonin 0.06 01/07/21 14:00: B-Natriuretic Peptide 52.3 01/07/21 15:37: COVID-19 (YEISON) Not Detected 01/07/21 15:39: D-Dimer Quant (PE/DVT) 1.83 H* 01/07/21 20:29: Troponin I High Sens 14 01/07/21 22:33: Troponin I High Sens 14 01/08/21 02:31: WBC 3.7 L, RBC 3.70 L, Hgb 10.5 L, Hct 33.2 L, MCV 89.7, MCH 28.4, MCHC 31.6 L, RDW Std Deviation 47.9 H, RDW Coeff of Marcos 14.7 H, Plt Count 131 L, MPV 9.7, Immature Gran % (Auto) 0.800, Neut % (Auto) 74.8 H, Lymph % (Auto) 11.4 L, [place] % (Auto) 9.5, Eos % (Auto) 2.7, Baso % (Auto) 0.8, Absolute Neuts (auto) 2.8, Absolute Lymphs (auto) 0.42 L, Nucleated RBC % 0, Differential Comment SCANNED, Diff Path Review August01/08/21 02:31: Sodium 141, Potassium 3.9, Chloride 108 H, Carbon Dioxide 27.0, Anion Gap 6, BUN 16, Creatinine 1.18, Estim Creat Clear Calc 63.58, Est GFR (MDRD) Af Amer 79, Est GFR (MDRD) Non-Af 66, BUN/Creatinine Ratio 13.6, Glucose 94, Calcium 8.4 L, Total Bilirubin 0.60, AST 11 L, ALT 23, Alkaline Phosphatase 85, Total Protein 5.7 L, Albumin 2.8 L, Globulin 2.9, Albumin/Globulin Ratio 1.0 01/08/21 02:31: Troponin I High Sens 13 Microbiology: Microbiology 01/07/21 13:20 Nasal Secretion SARS-CoV-2 Antigen (Rapid) - Final Radiography Diagnostic Testing: Radiology Impression Echocardiogram 01/07/21 16:17 Interpretation Summary The estimated ejection fraction is EF 55-60 %. Normal LV systolic functhion Mild LVH Grade # I Diastolic dysfunction Normal Apperaing Bioprothetic AV function with trivial AI COLE 2.1 cm2 Mean gradient 12.2 mmhg Ordering Physician: Martha Anderson Referring Physician: Yaw Singh Performed By: Flora Whitney, IRIS, RVT Chest CTA 01/07/21 18:20 IMPRESSION: 1. No evidence of pulmonary embolus. 2. No aortic dissection or aneurysm. 3. Evidence of resection of the distal esophagus with gastric pull-up procedure. 4. Bilateral pleural effusions and atelectasis. 5. Evidence of prior CABG procedure. Electronically Signed: Dave Vásquez DO at 19:52 EDT Tel [phone], Service support , D/C Instructions Discharge Diet: No restrictions Weight Bearing Status: Weight bearing as tolerated Call your doctor if you observe: Fever of 101 or Higher, Numbness or Tingling, Shortness of breath, Dizziness, Chest pain, Increased palpitations (irregular heartbeat) and Calf discomfort Please Follow Up With: Primary care provider When: Within the next two weeks. Meaningful Use Info Meaningful Use Diagnoses (Choose all that apply): None applicable Discharge Plan Admission Admit Date/Time: 01/07/21 15:18 Primary Reason for Your Visit: Shortness of breath Attending Provider: Kody Avila Primary Care Provider: Yaw Singh Instructions Additional Instructions / Restrictions: Patient Problems: Altered Health Status related to Hospitalization Patient Goals: *Optimal Level of Health *Keep Appointments *Medication Compliance *Remain Safe Discharge Orders/Prescriptions Prescriptions: Continued nitroglycerin 0.4 mg tablet, sublingual 0.4 mg SUBLINGUAL Q5M PRN (Reason: Chest Pain) Qty: 25 RF: 3 ezetimibe 10 mg tablet 10 mg PO DAILY Qty: 90 RF: 3 atorvastatin 80 mg tablet 80 mg PO QHS Qty: 90 RF: 3 aspirin 81 MG tablet,chewable 81 mg PO DAILY@0800 RF: 0 ondansetron HCl 8 mg tablet 8 mg PO Q8H PRN (Reason: Nausea) RF: 0 pantoprazole 40 mg tablet,delayed release (DR/EC) 40 mg PO DAILY RF: 0 losartan 100 mg tablet 100 mg PO DAILY Qty: 90 RF: 3 metoprolol tartrate 25 mg tablet 25 mg PO BID Qty: 180 RF: 3 amlodipine 10 mg tablet 10 mg PO DAILY Qty: 90 RF: 3 Referrals / Follow Up: Yaw Singh MD [Primary Care Provider] - Within 2 Weeks Disposition Disposition (needs filled in before D/C Order can be placed): Home, Self Care Documented by User: Dr. Kody Avila MD 01/08/21 16:10 Providers Date of Admission: 01/07/21 Reason For Visit: DYSPNEA Medications at Discharge Home Medications aspirin 81 mg PO DAILY@0800 01/23/14 nitroglycerin 0.4 mg sublingual tablet 0.4 mg SUBLINGUAL Q5M PRN #25 tab 01/29/19 losartan 100 mg tablet 100 mg PO DAILY #90 tab 09/24/20 metoprolol tartrate 25 mg tablet 25 mg PO BID #180 tab 09/24/20 amlodipine 10 mg tablet 10 mg PO DAILY #90 tab 09/28/20 atorvastatin 80 mg tablet 80 mg PO QHS #90 tab 12/30/20 ezetimibe 10 mg tablet 10 mg PO DAILY #90 tab 12/30/20 ondansetron HCl 8 mg PO Q8H PRN 01/07/21 pantoprazole 40 mg PO DAILY 01/07/21 ABG / Lab / Microbiology Data Result Diagrams: 01/08/21 02:31 01/08/21 02:31 Discharge Plan Admission Admit Date/Time: 01/07/21 15:18 Primary Reason for Your Visit: Shortness of breath Attending Provider: Kody Avila Primary Care Provider: Yaw Singh Instructions Additional Instructions / Restrictions: Patient Problems: Altered Health Status related to Hospitalization Patient Goals: *Optimal Level of Health *Keep Appointments *Medication Compliance *Remain Safe Discharge Orders/Prescriptions Prescriptions: Continued nitroglycerin 0.4 mg tablet, sublingual 0.4 mg SUBLINGUAL Q5M PRN (Reason: Chest Pain) Qty: 25 RF: 3 ezetimibe 10 mg tablet 10 mg PO DAILY Qty: 90 RF: 3 atorvastatin 80 mg tablet 80 mg PO QHS Qty: 90 RF: 3 aspirin 81 MG tablet,chewable 81 mg PO DAILY@0800 RF: 0 ondansetron HCl 8 mg tablet 8 mg PO Q8H PRN (Reason: Nausea) RF: 0 pantoprazole 40 mg tablet,delayed release (DR/EC) 40 mg PO DAILY RF: 0 losartan 100 mg tablet 100 mg PO DAILY Qty: 90 RF: 3 metoprolol tartrate 25 mg tablet 25 mg PO BID Qty: 180 RF: 3 amlodipine 10 mg tablet 10 mg PO DAILY Qty: 90 RF: 3 Referrals / Follow Up: Yaw Singh MD [Primary Care Provider] - Within 2 Weeks Disposition Disposition (needs filled in before D/C Order can be placed): Home, Self Care Charges/Coding Addendum Addendum: Dr. Avila: I personally reviewed the chart and examined the patient, and agree with the above findings. 75-year-old male with a recent history of a distal esophagectomy secondary to cancer was getting his sixth infusion of Opdivo when he appeared to be breathing kind of hard. After the infusion he was sent over to the ER. He was feeling fine until he walked up the ramp into the ER and then was feeling short of breath again. He is not hypoxic and CTA of the chest was negative for PE. Troponins were unremarkable but he did have a stress test and an echo both of which were normal. I discussed with him the plan for discharge today and he expressed understanding of the risk benefits of going home and would like to go home today. He will follow up with his PCP in 3 to 5 days for further evaluation of the shortness of breath. If it does recur he will present back to the ER. Visit Charges OBSV E&M: 42817 Observation care discharge
[2021-01-10 14:43] LABS: Pathologist Review Reviewed
[2021-01-11 11:57] LABS: Pathologist Review Reviewed
== END 2021-01-08 11:59 | disposition home or self-care (01) ==
LOC: ED 15:24 → PCU 18:17
PROVIDERS: Student in an Organized Health Care Education/Training Program; Admitting Provider Internal Medicine; Emergency Provider Emergency Medicine; PCP Family Medicine; Referring Provider Internal Medicine; Visit Provider Family Medicine
DX: R06.09 Other forms of dyspnea (principal); D61.818 Other pancytopenia; C15.9 Malignant neoplasm of esophagus, unspecified; N18.32 Chronic kidney disease, stage 3b; E78.5 Hyperlipidemia, unspecified; I12.9 Hypertensive chronic kidney disease with stage 1 through stage 4 chronic kidney disease, or unspecified chronic kidney disease; I25.10 Atherosclerotic heart disease of native coronary artery without angina pectoris; Z79.899 Other long term (current) drug therapy; Z92.3 Personal history of irradiation; Z79.82 Long term (current) use of aspirin; Z95.1 Presence of aortocoronary bypass graft; Z95.2 Presence of prosthetic heart valve
CPT/HCPCS: 36415; 71045; 71275; 78452; 80048; 80053; 80061; 80076; 83880; 84145; 84484; 85025; 85379; 87426; 87635; 93005; 93017; 93306; 94760; 96360; 96361; 97110; 99218; 99251; 99285; A9500; J7030; Q9967; U0005; A4216; G0378; G0463; J2785; U0003

== ENCOUNTER 2021-03-01 21:04 | Emergency (ER) | payer MEDICARE, OTHER, SELFPAY ==
[2021-03-01 21:05] VITALS: BP 153/110; PULSE 99; RESP 20; TEMP 36.4; O2SAT 98; BMI 29.9
[2021-03-01 21:27] LABS: Absolute Lymphocyte Count 0.48 X10^3/uL (0.83-4.51); Absolute Neutrophil Count 3.6 X10^3/uL (2.0-7.7); Basophil# 0.02 X10^3/uL; Basophil% 0.4 % (0-1); Eosinophil# 0.01 X10^3/uL; Eosinophils% 0.2 % (0-5); Hematocrit 41.6 % (40-54); Hemoglobin 13.9 g/dL (13.0-16.5); Lymphocyte # 0.48 X10^3/ul (0.83-4.51); Lymphocyte % 10.2 % (19-41); Mean Corp Hgb Conc 33.4 g/dL (32-36); Mean Corpuscular Hgb 28.7 pg (27.0-32.0); Mean Platelet Vol. 9.7 fl (6.2-12.0); Monocyte# 0.56 X10^3/uL; Monocyte% 11.9 % (0-10); NRBC Flagged by Analyzer 0 % (0-5); Neutrophil % 76.9 % (47-70); POSITIVE DIFFERENTIAL YES; Platelet Count 153 K/mm3 (150-450); RBC Distribution Width CV 12.9 % (11.6-14.6); RBC Distribution Width SD 40.4 fl (35.1-43.9); Red Blood Count 4.84 M/mm3 (4.6-6.2); White Blood Count 4.7 K/mm3 (4.4-11.0)
[2021-03-01 21:29] LABS: Differential Indicated SCAN CRITERIA MET
--- NOTE | 2021-03-01 22:01 | CT_ITS ---
HISTORY: Abdominal pain -- IV PO Contrast TECHNIQUE: Helically acquired images were obtained of the abdomen and pelvis following the intravenous administration of 100mL Isovue-300 Iodinated contrast. Gastrografin Oral contrast was administered. Coronal and sagittal reformats obtained. A radiation dose optimization technique was used for this scan. COMPARISON: None FINDINGS: # of images incl. paperwork: [id number] LUNG BASES: Layering bilateral pleural effusions with mild compressive atelectasis. Large hiatal hernia. Severe coronary atherosclerosis. Aortic stent valve noted. LIVER T BILIARY TRACT: Unremarkable well filled gallbladder. No acute hepatic finding. Mild periportal edema. 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 SPLEEN: Calcified sequela of prior granulomatous disease. PANCREAS: Unremarkable. KIDNEYS/URETERS/BLADDER: 3 mm nonobstructive right renal stone suggested. Right renal 1.3 cm cyst, no imaging follow-up required. No ureteral stone or dilatation. 2 mm stone noted in the right dependent bladder, axial image 112. No hydronephrosis. Mild bilateral senescent perinephric inflammation. Mild anterior bladder wall thickening.. LYMPH NODES: No suspicious adenopathy. STOMACH, SMALL AND LARGE BOWEL: No acute gastric finding. No small bowel obstruction or gross wall thickening. Normal appendix. No acute colonic finding. Distal colonic diverticulosis without evidence of diverticulitis. ASCITES/FREE AIR: Mild epigastric fat stranding extending from pleural effusions along the hiatal hernia. No organized free fluid or free air. AORTA: Atherosclerosis without ectasia. PELVIS: Prostate 5.4 cm transverse. MUSCULOSKELETAL: No acute osseous finding. Old right posterior eighth rib fracture. Partially seen sternotomy wires. Right anterior pelvic wall surgical change. CT/Abdomen/Pelvis WITH Contrast IMPRESSION: Bilateral layering pleural effusions with mild compressive atelectasis. Mild epigastric stranding possibly secondary to pleural fluid tracking along large hiatal hernia. Cannot exclude gastritis along the gastric antrum. 2 mm dependent bladder stone and 3 mm right renal calyx stone. No current ureteral stone or hydronephrosis. Mild anterior bladder wall thickening of uncertain significance. Correlate with urine for evidence of cystitis. Distal colonic diverticulosis without evidence of diverticulitis. Splenic sequela of prior granulomatous disease. Other chronic findings as above. Individualized dose optimization techniques were used for this CT. at 0139 Reported and signed by: Gagandeep Felipe MD Electronically Signed: Gagandeep Felipe MD at 1:38 EST Tel , Service support ,
[2021-03-01 22:02] LABS: Anion Gap 9 (5-15); BUN 21 mg/dL (7-18); BUN/Creat Ratio 18.1 RATIO (10-20); Calcium,Total 9.2 mg/dL (8.5-10.1); Chloride 101 mmol/L (98-107); Creatinine, Serum 1.16 mg/dL (0.70-1.30); EST Glomerular Filtration Rate 67 mL/min (>60); Est Glom Filt Rate - Afr Amer 81 mL/min (>60); Estimated Creatinine Clearance 64.68 ml/min; Glucose 122 mg/dL (74-106); Potassium 4.2 mmol/L (3.5-5.1); Sodium Level 136 mmol/L (136-145)
--- NOTE | 2021-03-01 22:04 | ED.VIS.GI ---
HPI HPI - GI History of Present Illness Chief Complaint: Abd Pain Informant: patient Abdominal Pain/Flank Pain Onset: Days (5) Context: Gradual Onset Timing: Continuous Quality: Burning and Dull Location: Epigastric Worsened by: Nothing Relieved by: Nothing Nausea/Vomiting/Emesis GI Symptom: Positive for Nausea and Vomiting Quality: Negative for Coffee ground and Hematemesis Diarrhea/Melena/Hematochezia GI Symptom: Negative for Diarrhea, Melena and Hematochezia Associated Symptoms Associated Symptoms: Negative for Dysuria, Frequency and Hematuria Narrative Narrative: Patient presents with abdominal pain that has been getting worse over the past 5 days. Patient states he has been feeling more constipated at home. Patient states that he has tried MiraLAX and magnesium citrate at home to help with his constipation. Patient states these have not been helping. Patient states he had an enema which did have some results. Patient states that he still feels like he is constipated. Patient admits to some nausea and dry heaves. Patient was to decreased appetite. Patient states that he only eats about 5 bites of food before he feels full. Patient denies any melena or hematochezia. Patient describes his pain as burning and dull. Patient states it is over the epigastric area. Patient states nothing makes it worse and nothing makes it better. Patient denies any urinary complaints. [facility] Medical History abnormal stress test Angina pectoris 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 angina pectoris Atherosclerosis of coronary artery of [place] heart without angina pectoris Atherosclerotic heart disease of [place] coronary artery with other forms of angina pectoris Encounter for long-term current use of high risk medication Esophageal carcinoma Essential (primary) hypertension Exertional chest pain Hyperlipidemia Ischemic heart disease due to coronary artery obstruction Non-rheumatic aortic stenosis Non-smoker Syncope and collapse URI (upper respiratory infection) Home Medications aspirin 81 mg PO DAILY@0800 01/23/14 [History Last Taken 01/06/21] nitroglycerin 0.4 mg sublingual tablet 0.4 mg SUBLINGUAL Q5M PRN #25 tab 01/29/19 [Rx Last Taken Unknown] losartan 100 mg tablet 100 mg PO DAILY #90 tab 09/24/20 [Rx Last Taken 01/06/21] metoprolol tartrate 25 mg tablet 25 mg PO BID #180 tab 09/24/20 [Rx Last Taken 01/06/21] amlodipine 10 mg tablet 10 mg PO DAILY #90 tab 09/28/20 [Rx Last Taken 01/06/21] atorvastatin 80 mg tablet 80 mg PO QHS #90 tab 12/30/20 [Rx Last Taken 01/06/21] ezetimibe 10 mg tablet 10 mg PO DAILY #90 tab 12/30/20 [Rx Last Taken 01/06/21] ondansetron HCl 8 mg PO Q8H PRN 01/07/21 [History Last Taken 01/06/21] pantoprazole 40 mg PO DAILY 01/07/21 [History Last Taken 01/06/21] Allergy/AdvReac Type Severity Reaction Status Date / Time No Known Allergies Allergy Verified 01/07/21 12:15 environmental Allergy Intermediate itchy eyes Uncoded 01/07/21 12:15 Family History Father Heart disease Myocardial infarction Hypertension Brother Hypertension Sister Heart disease Myocardial infarction Surgical History H/O coronary artery bypass surgery (09/18/02) History of aortic valve replacement (03/03/19) History of coronary artery stent placement (12/31/18) History of hernia repair History of tonsillectomy Social History Smoking Status: Never smoker alcohol intake: never substance use type: does not use caffeine: No what type of physical activity do you participate in: walking frequency: daily ROS ROS ED Constitutional Constitutional ED: Reports chills, fever(s) and subjective Eyes Eyes: Denies blurry vision or change in vision ENT ENT ED: Denies rhinorrhea or sore throat Cardiovascular Cardiovascular: Denies chest pain or palpitations Respiratory/Chest Respiratory/Chest: Denies cough or dyspnea Gastrointestinal Gastrointestinal: Reports abdominal pain, constipation, nausea and vomiting Genitourinary Genitourinary ED: Denies dysuria or hematuria Musculoskeletal Musculoskeletal: Denies back pain or neck pain Integumentary Denies abscess or rash Neurologic Neurologic: Denies headache(s) or weakness Allergic/Immunologic Allergic/Immunologic ED: Denies mouth swelling or urticaria EXAM Physical Exam Const Vital Signs: 03/01/21 21:05 03/01/21 23:14 Temperature 97.5 F L Temperature Source Temporal Pulse Rate 99 73 Respiratory Rate 20 H 13 Blood Pressure 153/110 H 158/93 H Blood Pressure Mean 124 114 Pulse Ox 98 98 Oxygen Delivery Method Room Air Room Air Positive well nourished and well developed General Appearance ED: well developed HEENT Reports moist mucous membranes Neck supple and no JVD Resp normal respiratory effort and clear to auscultation bilaterally Cardio regular rate, regular rhythm and no murmurs GI normal to inspection, nondistended, normoactive bowel sounds and non-distended GI Narrative: There is diffuse tenderness but it is worse over the epigastric area. Auscultation: normoactive bowel sounds Palpation: soft and tender epigastric, LLQ, RLQ, LUQ, RUQ, periumbilical and suprapubic; Negative for guarding or rebound tenderness present Extremity normal to inspection General Extremety ED: Negative for edema or tenderness General Extremity: Negative for edema Neuro oriented x3, CN's II-XII intact bilaterally and no sensory deficits noted Sensorium / Orientation: alert Motor Exam: strength 5/5 throughout Psych mental status grossly normal Skin no rashes or lesions noted MDM MDM MDM Narrative Medical decision making narrative: Patient was given IV fluids, morphine, and Zofran. CBC was within normal limits. Comprehensive metabolic profile showed a slightly elevated BUN of 21. Alk phos was 125. AST was slightly low at 14. ALT was normal. Lipase was normal. Urinalysis does not show any evidence of urinary tract infection. CT scan of the abdomen pelvis was ordered and is pending. Care of the patient was turned over to the oncoming physician pending CT results. Lab Data Attestation: I reviewed the patient's lab results. Labs: Laboratory Results - last 24 hr 03/01/21 03/01/21 03/01/21 21:13 21:13 21:13 WBC 4.7 RBC 4.84 Hgb 13.9 Hct 41.6 MCV 86.0 MCH 28.7 MCHC 33.4 RDW Std Deviation 40.4 RDW Coeff of Marcos 12.9 Plt Count 153 MPV 9.7 Immature Gran % (Auto) 0.400 Neut % (Auto) 76.9 H Lymph % (Auto) 10.2 L [place] % (Auto) 11.9 H Eos % (Auto) 0.2 Baso % (Auto) 0.4 Absolute Neuts (auto) 3.6 Absolute Lymphs (auto) 0.48 L Nucleated RBC % 0 Differential Comment SCANNED Sodium 136 Potassium 4.2 Chloride 101 Carbon Dioxide 26.0 Anion Gap 9 BUN 21 H Creatinine 1.16 Estim Creat Clear Calc 64.68 Est GFR (MDRD) Af Amer 81 Est GFR (MDRD) Non-Af 67 BUN/Creatinine Ratio 18.1 Glucose 122 H Calcium 9.2 Total Bilirubin 0.90 Direct Bilirubin 0.27 AST 14 L ALT 30 Alkaline Phosphatase 125 H Total Protein 7.3 Albumin 3.5 Globulin 3.8 Lipase 104 Urine Color Urine Clarity Urine pH Ur Specific [place] Urine Protein Urine Glucose (UA) Urine Ketones Urine Occult Blood Urine Nitrite Urine Bilirubin Urine Urobilinogen Ur Leukocyte Esterase Urine RBC Urine WBC Ur Squamous Epith Cells Urine Bacteria Hyaline Casts Urine Mucus 03/01/21 22:05 WBC RBC Hgb Hct MCV MCH MCHC RDW Std Deviation RDW Coeff of Marcos Plt Count MPV Immature Gran % (Auto) Neut % (Auto) Lymph % (Auto) [place] % (Auto) Eos % (Auto) Baso % (Auto) Absolute Neuts (auto) Absolute Lymphs (auto) Nucleated RBC % Differential Comment Sodium Potassium Chloride Carbon Dioxide Anion Gap BUN Creatinine Estim Creat Clear Calc Est GFR (MDRD) Af Amer Est GFR (MDRD) Non-Af BUN/Creatinine Ratio Glucose Calcium Total Bilirubin Direct Bilirubin AST ALT Alkaline Phosphatase Total Protein Albumin Globulin Lipase Urine Color Yellow Urine Clarity Clear Urine pH 5.0 Ur Specific [place] 1.025 Urine Protein 15 H Urine Glucose (UA) Normal Urine Ketones Negative Urine Occult Blood Negative Urine Nitrite Negative Urine Bilirubin Negative Urine Urobilinogen Normal Ur Leukocyte Esterase Negative Urine RBC 0 SEEN Urine WBC 0-5 SEEN Ur Squamous Epith Cells 0 SEEN Urine Bacteria RARE Hyaline Casts 0-5 SEEN Urine Mucus 1+ Discharge Plan Triage Chief Complaint: Abd Pain ED Provider: Nikita Russell Dx/Rx/DC Orders Prescriptions: No Action nitroglycerin 0.4 mg tablet, sublingual 0.4 mg SUBLINGUAL Q5M PRN (Reason: Chest Pain) Qty: 25 RF: 3 ezetimibe 10 mg tablet 10 mg PO DAILY Qty: 90 RF: 3 atorvastatin 80 mg tablet 80 mg PO QHS Qty: 90 RF: 3 aspirin 81 MG tablet,chewable 81 mg PO DAILY@0800 RF: 0 ondansetron HCl 8 mg tablet 8 mg PO Q8H PRN (Reason: Nausea) RF: 0 pantoprazole 40 mg tablet,delayed release (DR/EC) 40 mg PO DAILY RF: 0 losartan 100 mg tablet 100 mg PO DAILY Qty: 90 RF: 3 metoprolol tartrate 25 mg tablet 25 mg PO BID Qty: 180 RF: 3 amlodipine 10 mg tablet 10 mg PO DAILY Qty: 90 RF: 3 Primary Care Provider: Yaw Singh Referrals: Yaw Singh MD [Primary Care Provider] -
[2021-03-01 22:07] LABS: Differential Comment SCANNED
[2021-03-01] MEDS: 0.9% Normal Saline 1,000 ML 1000 ML IV (22:11)
[2021-03-01] MEDS: Ondansetron 4 MG/2 ML Vial IV (22:11)
[2021-03-01] MEDS: Morphine 4 MG/ML Syringe IV (22:12)
[2021-03-01 22:21] LABS: Red Blood Cells-Urine 0 SEEN /hpf (0-5); Squamous Epithelial Cells - UA 0 SEEN /hpf (0-5)
[2021-03-01 22:24] LABS: Color, Urine Yellow (Yellow); Glucose, Dipstick Normal (Normal); Ketone-Dipstick Negative (Negative); Leukocyte Esterase-Dipstick Negative /ul (Negative); Nitrite-Dipstick Negative (Negative); Occult Blood-Urine Negative /ul (Negative); Protein-Dipstick 15 mg/dl (Negative); Specific Gravity, Urine 1.025 (1.002-1.030); Urine Bilirubin Dipstick Negative (Negative); Urine Clarity Clear (Clear); Urine Urobilinogen Normal (Normal)
[2021-03-01 22:29] LABS: Hyaline Cast 0-5 SEEN /lpf (0-5)
[2021-03-01 22:30] LABS: Bacteria RARE /hpf (None Seen); Mucous, Urine 1+ /hpf (<or=2+); White Blood Cells 0-5 SEEN /hpf (0-5)
[2021-03-01 22:36] LABS: AST(SGOT) 14 U/L (15-37); Alanine Aminotransfer ALT/SGPT 30 U/L (16-61); Albumin, Serum 3.5 g/dL (3.2-5.0); Alkaline Phosphatase 125 U/L (45-117); Bilirubin, Direct 0.27 mg/dL (0.00-0.30); Globulin 3.8 g/dL (2.2-4.2); Lipase 104 U/L (73-393); Protein, Total 7.3 g/dL (6.4-8.2)
[2021-03-01 23:14] VITALS: BP 158/93; PULSE 73; RESP 13; O2SAT 98
[2021-03-02] MEDS: Morphine 4 MG/ML Syringe IV (00:15)
[2021-03-02] MEDS: Electrolyte Solution/Peg's 4000 ML PO (02:10)
[2021-03-02 02:14] VITALS: BP 161/89; PULSE 88; RESP 16; O2SAT 97
== END 2021-03-02 02:14 | disposition home or self-care (01) ==
PROVIDERS: Emergency Provider Emergency Medicine; PCP Family Medicine
DX: K59.00 Constipation, unspecified (principal); R68.81 Early satiety; I10 Essential (primary) hypertension; E78.5 Hyperlipidemia, unspecified; Z95.1 Presence of aortocoronary bypass graft; Z95.5 Presence of coronary angioplasty implant and graft; Z79.82 Long term (current) use of aspirin; Z79.899 Other long term (current) drug therapy
CPT/HCPCS: 74177; 80048; 80076; 81001; 83690; 85025; 96361; 96374; 96375; 96376; 99283; J7030; Q9967; A4216; J2405

== ENCOUNTER → 2021-03-17 07:35 | Outpatient (CLI) | payer MEDICARE, OTHER, SELFPAY ==
--- NOTE | 2021-03-17 | FLU_PTH ---
PATIENT: NICKO ROSALES LOC: U#:[id number] AGE/SX: 69/M ROOM: RE03/17/[address]: Dr. Denisse Cardenas MD : 1955 BED: DIS: SPEC #: [id number] RECD: 03/17/21 10:54 STATUS: RICKY REMichael #: [id number] KMI: 03/17/21 00:[address]: Denisse Cardenas DEPT: CYTOLOGY RECD BY: Xavier Evans ENTERED: 03/17/21 10:55 SP TYPE: Fluid OTHR DR: Dr. Yaw Singh MD Tissues: Pleura, NOS Procedures: Special Stain Group II Surgery Specimen Level IV Cytospin Fluid HEADER OPERATION: Thoracentesis PRE-OP DIAGNOSIS: Pleural effusion TISSUE SUBMITTED: Thoracentesis fluid for cytology DIAGNOSIS CYTOLOGY Thoracentesis fluid for cytology (cytospin and cell block): Negative for malignant cells. AM:scot 03/18/2021 CYTOLOGY STUDY Slides are reviewed. CYTOLOGY GROSS Received is 90 ml of red cloudy fluid labeled with the patient's name and and designated per the requisition as thoracentesis. Submitted for cytology preparation including cell block. / scot 03/17/2021 TC:5 CPT: 01279, 50745
[2021-03-17 07:49] LABS: Hematocrit 38.7 % (40-54); Hemoglobin 12.3 g/dL (13.0-16.5); Mean Corp Hgb Conc 31.8 g/dL (32-36); Mean Corpuscular Hgb 28.5 pg (27.0-32.0); Mean Corpuscular Volume 89.6 fL (80-94); Mean Platelet Vol. 9.2 fl (6.2-12.0); Platelet Count 138 K/mm3 (150-450); RBC Distribution Width CV 13.3 % (11.6-14.6); RBC Distribution Width SD 43.1 fl (35.1-43.9); Red Blood Count 4.32 M/mm3 (4.6-6.2); White Blood Count 5.1 K/mm3 (4.4-11.0)
--- NOTE | 2021-03-17 07:49 | US_ITS ---
PROCEDURE: ULTRASOUND GUIDED THORACENTESIS. DATE: 03/17/2021. INDICATION: Male, 65 years old. Left pleural effusion. PHYSICIAN: Nino Wood M.D. PROCEDURE: The risks, benefits, and alternatives to the procedure were explained to the patient. The specific risks of bleeding, infection, and pneumothorax requiring chest tube insertion were discussed and accepted. Written informed consent was obtained. Ultrasonographic evaluation of the left lower pleural space was carried out. An adequate pocket was identified. The patient was placed in the sitting, upright position. The overlying skin was prepped and draped in sterile fashion. 1% lidocaine was administered subcutaneously for local anesthesia. Under ultrasound guidance, a 5French thoracentesis needle/catheter system was advanced into the left posterior lower pleural fluid collection. Approximately 850 mL of dark adalberto-colored fluid was drained. The catheter was removed, and a sterile dressing was applied. A specimen was collected and sent to the laboratory for analysis, as requested by the referring clinician. The patient tolerated the procedure well. A chest x-ray was ordered. US/Thoracentesis W US IMPRESSION: Ultrasound-guided left thoracentesis. Electronically Signed: Nino Wood MD at 9:50 EST , Service support ,
[2021-03-17 08:06] LABS: International Normalized Ratio 1.3; Prothrombin Time (Protime)PT. 15.6 SECONDS (11.7-14.9)
[2021-03-17 08:09] LABS: LDH 211 U/L (87-241)
[2021-03-17] MEDS: Lidocaine 2% (20 ml mdv) 20 ML Vial INFILT (08:30)
--- NOTE | 2021-03-17 08:40 | RAD_ITS ---
STUDY: X-RAY CHEST REASON FOR EXAM: Male, 65 years old. Immediately post thoracentesis TECHNIQUE: AP inspiration and expiration views. COMPARISON: Comparison is made with prior study 01/07/2021. FINDINGS: The patient is status post left thoracentesis. There is no evidence of pneumothorax. Mild blunting of both costophrenic angles persists. RAD/Chest Insp/Exp 2 View IMPRESSION: No evidence of pneumothorax following a left thoracentesis. Electronically Signed: Nino Wood MD at 8:59 EST , Service support ,
[2021-03-17 09:10] VITALS: BP 106/70; BP 97/63; BP 98/64; PULSE 63; PULSE 70; PULSE 71; RESP 20; RESP 24; RESP 26; TEMP 36.6; O2SAT 100; O2SAT 97; O2SAT 99
[2021-03-17 10:14] LABS: Cytology, Body Fluid / CSF SEE PATHOLOGY REPORT
[2021-03-17 10:45] LABS: Body Fluid Mononuclear WBC # 0.181 10^3/uL; Body Fluid Mononuclear WBC % 90.9 %; Body Fluid Polynuclear WBC # 0.018 10^3/uL; Body Fluid Polynuclear WBC % 9.1 %; Body Fluid Total Cells Counted 0.202 10^3/ul; Red Cell Count/Body Fluid 0.005 10^6/ul; White Blood Count/Body Fluid 0.199 10^3/uL
[2021-03-17 10:47] LABS: Appearance/Body Fluid SL CLDY; Auto B Fluid Analyzer BKGD Ct COUNTS W/IN LIMITS (W/IN LIMITS); Color/Body Fluid YELLOW; Source- Body Fluid THORACENTESIS
[2021-03-17 11:03] LABS: Glucose, Body Fluid 107 mg/dL (40-70); LDH,Body Fluid 81 Units/l (Not Establ.)
[2021-03-17 12:02] LABS: Body Fluid QC Type(s) BF1Q; Lymphocytes 72 %; Mesothelial Cells 1 %; Monocytes 11 %; Neutrophil (Segs) 16 %
[2021-03-21 10:29] LABS: Pathologist Comment/Body Fluid Reviewed
== END | disposition home or self-care (01) ==
PROVIDERS: PCP Family Medicine; Referring Provider Internal Medicine Hematology & Oncology; Visit Provider Internal Medicine Hematology & Oncology
DX: J90 Pleural effusion, not elsewhere classified (principal)
CPT/HCPCS: 32555; 36415; 71046; 82945; 83615; 85027; 85610; 88108; 88305; 88313; 89050

== ENCOUNTER 2021-03-24 10:22 | Inpatient (IN) | payer MEDICARE, OTHER, SELFPAY ==
[2021-03-24] VITALS (7 sets, daily range): BP systolic 109–146; BP diastolic 74–84; PULSE 56–65; RESP 14–18; TEMP 36.3–36.8; O2SAT 97–100; BMI 25.2; BMI 26.1
--- NOTE | 2021-03-24 10:35 | EKG12_ITS ---
Test Reason : SOB Blood Pressure : / mmHG Vent. Rate : 056 BPM Atrial Rate : 056 BPM P-R Int : 138 ms QRS Dur : 094 ms QT Int : 434 ms P-R-T Axes : 019 015 009 degrees QTc Int : 418 ms Sinus bradycardia with sinus arrhythmia Otherwise normal ECG Confirmed by CHIKI MANNING, RICHARD ([id number]), mapping editor CHRISTIANO OWENS ([id number]) on 03/25/2021 12:39:39 PM Referred By: NANCY Confirmed By:RICHARD MONET MD
--- NOTE | 2021-03-24 10:35 | RAD_ITS ---
STUDY: X-RAY CHEST REASON FOR EXAM: Male, 65 years old. Shortness of breath on exertion. TECHNIQUE: Single AP portable view of the chest. COMPARISON: Comparison is made with prior study dated 03/17/2021. FINDINGS: Small bilateral pleural effusions with bibasilar atelectasis slightly more prominent on the left side. These have increased slightly as compared to prior study. Sternal cerclage wires and vascular clips are present from a prior sternotomy and coronary artery bypass graft procedure (CABG). Normal mediastinum and héctor. Normal visualized pulmonary arteries. There is atherosclerotic calcification of the aortic arch with tortuosity. Normal visualized thoracic spine. Normal visualized ribs, clavicles, and shoulders. There is no demonstrated abnormality of the visualized soft tissue structures of the upper abdomen. RAD/Chest 1 View (Portable) IMPRESSION: Slight increase in the bilateral pleural effusions with bibasilar atelectasis. Electronically Signed: Nino Wood MD at 11:38 EST , Service support ,
[2021-03-24 10:59] LABS: Absolute Lymphocyte Count 0.35 X10^3/uL (0.83-4.51); Absolute Neutrophil Count 2.8 X10^3/uL (2.0-7.7); Basophil# 0.02 X10^3/uL; Basophil% 0.6 % (0-1); Eosinophil# 0.04 X10^3/uL; Eosinophils% 1.2 % (0-5); Hematocrit 34.9 % (40-54); Hemoglobin 11.5 g/dL (13.0-16.5); Lymphocyte # 0.35 X10^3/ul (0.83-4.51); Lymphocyte % 10.1 % (19-41); Mean Corpuscular Volume 87.9 fL (80-94); Mean Platelet Vol. 9.7 fl (6.2-12.0); Monocyte% 8.6 % (0-10); NRBC Flagged by Analyzer 0 % (0-5); Neutrophil # 2.75 X10^3/uL (2.7-7.7); Neutrophil % 79.2 % (47-70); POSITIVE DIFFERENTIAL YES; Platelet Count 117 K/mm3 (150-450); RBC Distribution Width CV 13.2 % (11.6-14.6); RBC Distribution Width SD 42.7 fl (35.1-43.9); Red Blood Count 3.97 M/mm3 (4.6-6.2); White Blood Count 3.5 K/mm3 (4.4-11.0)
[2021-03-24 11:01] LABS: Differential Indicated SCAN CRITERIA MET
--- NOTE | 2021-03-24 11:02 | ED.VIS.DYS ---
HPI History of Present Illness Chief Complaint: Shortness of Breath Narrative Narrative: Patient with history of partial gastrectomy and partial esophagectomy for history of esophageal cancer presenting with tightness across the lower aspect of his chest which has been there since his previous surgery. He states that he was walking into the cancer center today to see Dr. To and was told that he did look good. He felt short of breath. Patient also states he has a history of pleural effusion which was drained last week and he was told that they tested the cells and he did not have cancer in his lung. Patient denies fever, chills, cough. He denies leg swelling. [facility] Medical History abnormal stress test Angina pectoris 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 angina pectoris Atherosclerosis of coronary artery of [place] heart without angina pectoris Atherosclerotic heart disease of [place] coronary artery with other forms of angina pectoris Encounter for long-term current use of high risk medication Esophageal carcinoma Essential (primary) hypertension Exertional chest pain Hyperlipidemia Ischemic heart disease due to coronary artery obstruction Non-rheumatic aortic stenosis Non-smoker Syncope and collapse URI (upper respiratory infection) Home Medications aspirin 81 mg PO DAILY@0800 01/23/14 [History Last Taken 1 Week Ago ~03/17/21] nitroglycerin 0.4 mg sublingual tablet 0.4 mg SUBLINGUAL Q5M PRN #25 tab 01/29/19 [Rx Last Taken Unknown] ondansetron HCl 8 mg PO Q8H PRN 01/07/21 [History Last Taken 01/06/21] amlodipine 10 mg PO DAILY 03/24/21 [History Last Taken 03/23/21] atorvastatin 80 mg PO QHS 03/24/21 [History Last Taken 03/23/21] ezetimibe 10 mg PO DAILY 03/24/21 [History Last Taken 03/24/21] losartan 100 mg PO DAILY 03/24/21 [History Last Taken 03/24/21] metoclopramide HCl 10 mg PO TID 03/24/21 [History Last Taken Unknown] metoprolol tartrate 25 mg PO BID 03/24/21 [History Last Taken 03/24/21] pantoprazole [Protonix] 40 mg PO BID 03/24/21 [History Last Taken 03/24/21] potassium chloride 20 meq PO DAILY 03/24/21 [History Last Taken 03/24/21] Allergy/AdvReac Type Severity Reaction Status Date / Time No Known Allergies Allergy Verified 03/24/21 10:25 environmental Allergy Intermediate itchy eyes Uncoded 03/24/21 10:25 Family History Father Heart disease Myocardial infarction Hypertension Brother Hypertension Sister Heart disease Myocardial infarction Surgical History H/O coronary artery bypass surgery (09/18/02) History of aortic valve replacement (03/03/19) History of coronary artery stent placement (12/31/18) History of hernia repair History of tonsillectomy Social History Smoking Status: Never smoker alcohol intake: never substance use type: does not use caffeine: No what type of physical activity do you participate in: walking frequency: daily ROS ROS ED Constitutional Constitutional ED: Denies chills or fever(s) Eyes Eyes: Denies blurry vision ENT ENT ED: Denies rhinorrhea or sore throat Respiratory/Chest Respiratory/Chest: Reports dyspnea and dyspnea on exertion Gastrointestinal Gastrointestinal: Reports other Details: Epigastric pain ; Denies nausea or vomiting Genitourinary Genitourinary ED: Denies dysuria or hematuria Integumentary Denies abscess or rash Neurologic Neurologic: Denies headache(s) or weakness Psychiatric Psychiatric: Denies depression EXAM Physical Exam Const Vital Signs: 03/24/21 10:22 03/24/21 10:35 03/24/21 12:39 Temperature 97.4 F L Temperature Source Temporal Pulse Rate 61 60 Respiratory Rate 14 18 Blood Pressure 121/79 H 118/77 Blood Pressure Mean 93 90 Pulse Ox 100 99 Oxygen Delivery Method Room Air Room Air Room Air Positive well nourished General Appearance ED: NAD; Negative for pallor HEENT Reports moist mucous membranes atraumatic Eyes PERRL and EOMs intact bilaterally Neck no lymphadenopathy, supple and no meningeal signs Resp normal respiratory effort and clear to auscultation bilaterally Cardio regular rate and regular rhythm GI non-tender Palpation: soft Back/Spine normal to inspection Extremity normal to inspection General Extremety ED: Negative for edema or tenderness General Extremity: Negative for edema Neuro oriented x3 and CN's II-XII intact bilaterally Sensorium / Orientation: alert Motor Exam: strength 5/5 throughout Psych mental status grossly normal Thought Process: normal thought process Skin General Skin Exam: Negative for jaundice or pallor MDM MDM MDM Narrative Medical decision making narrative: Patient presenting with shortness of breath which occurred today while walking into see his cancer specialist. He sent to the ER. His EKG on my interpretation shows a sinus bradycardia with a ventricular rate of 56 bpm without sign of ischemic change. Chest x-ray my interpretation shows bibasilar pleural effusions which are small. Patient CBC shows that he is leukopenic and lymphopenic however he is like this on most blood work. Creatinine is acutely elevated at 3.09 which was normal in February. BNP slightly elevated at 158 is 10. LFTs unremarkable. Patient may be experiencing some shortness of breath due to the pleural effusions however he has acute kidney injury and will need to be hospitalized for this. Discussed with hospitalist for admission. Impression: 1. Bilateral pleural effusions 2. Acute kidney injury 3. Dyspnea on exertion Lab Data Labs: Laboratory Results - last 24 hr 03/24/21 03/24/21 03/24/21 10:50 10:50 10:50 WBC 3.5 L RBC 3.97 L Hgb 11.5 L Hct 34.9 L MCV 87.9 MCH 29.0 MCHC 33.0 RDW Std Deviation 42.7 RDW Coeff of Marcos 13.2 Plt Count 117 L MPV 9.7 Immature Gran % (Auto) 0.300 Neut % (Auto) 79.2 H Lymph % (Auto) 10.1 L [place] % (Auto) 8.6 Eos % (Auto) 1.2 Baso % (Auto) 0.6 Absolute Neuts (auto) 2.8 Absolute Lymphs (auto) 0.35 L Nucleated RBC % 0 [address] Review May foll Sodium 140 Potassium 4.2 Chloride 108 H Carbon Dioxide 25.0 Anion Gap 7 BUN 34 H Creatinine 3.09 H Estim Creat Clear Calc 24.28 Est GFR (MDRD) Af Amer 26 L Est GFR (MDRD) Non-Af 22 L BUN/Creatinine Ratio 11.0 Glucose 112 H Calcium 8.6 Total Bilirubin Direct Bilirubin AST ALT Alkaline Phosphatase Troponin I High Sens 10 B-Natriuretic Peptide 158.5 H Total Protein Albumin Globulin Lipase 03/24/21 03/24/21 10:50 10:50 WBC RBC Hgb Hct MCV MCH MCHC RDW Std Deviation RDW Coeff of Marcos Plt Count MPV Immature Gran % (Auto) Neut % (Auto) Lymph % (Auto) [place] % (Auto) Eos % (Auto) Baso % (Auto) Absolute Neuts (auto) Absolute Lymphs (auto) Nucleated RBC % Diff Path Review Sodium Potassium Chloride Carbon Dioxide Anion Gap BUN Creatinine Estim Creat Clear Calc Est GFR (MDRD) Af Amer Est GFR (MDRD) Non-Af BUN/Creatinine Ratio Glucose Calcium Total Bilirubin 0.90 Direct Bilirubin 0.23 AST 12 L ALT 23 Alkaline Phosphatase 91 Troponin I High Sens B-Natriuretic Peptide Total Protein 6.2 L Albumin 3.0 L Globulin 3.2 Lipase 79 Radiography Diagnostic Testing: Clinical Impression(s) from Imaging Studies Chest X-Ray 03/24/21 10:35 IMPRESSION: Slight increase in the bilateral pleural effusions with bibasilar atelectasis. Electronically Signed: Nino Wood MD at 11:38 EST , Service support , Discharge Plan Disposition Disposition: Acute Care Hospital [facility] Discharge Date/Time: 03/24/21 13:45
[2021-03-24 11:14] LABS: Anion Gap 7 (5-15); BUN 34 mg/dL (7-18); Calcium,Total 8.6 mg/dL (8.5-10.1); Chloride 108 mmol/L (98-107); Creatinine, Serum 3.09 mg/dL (0.70-1.30); EST Glomerular Filtration Rate 22 mL/min (>60); Est Glom Filt Rate - Afr Amer 26 mL/min (>60); Estimated Creatinine Clearance 24.28 ml/min; Glucose 112 mg/dL (74-106); Potassium 4.2 mmol/L (3.5-5.1); Sodium Level 140 mmol/L (136-145); Troponin-I HS 10 pg/mL (3.0-78.0)
[2021-03-24 11:21] LABS: BNP,B-Type NATRIURETIC PEPTIDE 158.5 pg/mL (0-100)
[2021-03-24 11:24] LABS: Lipase 79 U/L (73-393)
[2021-03-24 11:31] LABS: AST(SGOT) 12 U/L (15-37); Alanine Aminotransfer ALT/SGPT 23 U/L (16-61); Alkaline Phosphatase 91 U/L (45-117); Bilirubin, Direct 0.23 mg/dL (0.00-0.30); Globulin 3.2 g/dL (2.2-4.2); Protein, Total 6.2 g/dL (6.4-8.2)
--- NOTE | 2021-03-24 12:42 | NURSING ---
DR JEROME FOR DR HARRIS
--- NOTE | 2021-03-24 12:57 | HP.PCM.HOS_ITS ---
HPI - General General Date of Admission: 03/24/21 HPI Narrative NICKO ROSALES, is a 65 M with history of CA esophagus history of neoadjuvant chemoradiation and then gastroesophagectomy on August 09, 2020 and on immunotherapy Opdivo came to ER for shortness of breath, weakness for last 1 week after he had left thoracocentesis about 850 mL. Of note, patient was admitted between 01/07- 01/08 for dyspnea on exertion with stress test was normal and echo EF 60% with normal LV function, mild LVH grade 1 diastolic dysfunction. Patient denies chest pain or tightness but he has epigastric/left upper quadrant pain and tenderness since August after surgery of hysterectomy along with symptoms of gastroparesis, hiccough for which he was prescribed Reglan by Dr. To. In ED, he is afebrile and patient denies symptoms of fever or chills or recent Covid exposure. Vitals within acceptable limit. Chest x-ray shows mild bilateral pleural effusion with underlying atelectasis. Twelve-lead EKG shows sinus bradycardia 56/min, QTC 480 ms with no significant change from previous EKG of January 08, 2021. Patient was told by Dr. To that currently is not candidate for Covid vaccine. Denies any recent Covid exposure Labs in ED is found to be in LEELA. He denies recent change in urine output, burning micturition, increased frequency urgency or other new urinary tract symptoms. Urine is dark yellow in color [facility] Medical History abnormal stress test Angina pectoris 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 angina pectoris Atherosclerosis of coronary artery of [place] heart without angina pectoris Atherosclerotic heart disease of [place] coronary artery with other forms of angina pectoris Encounter for long-term current use of high risk medication Esophageal carcinoma Essential (primary) hypertension Exertional chest pain Hyperlipidemia Ischemic heart disease due to coronary artery obstruction Non-rheumatic aortic stenosis Non-smoker Syncope and collapse URI (upper respiratory infection) Home Medications aspirin 81 mg PO DAILY@0800 01/23/14 [History Last Taken 01/06/21] nitroglycerin 0.4 mg sublingual tablet 0.4 mg SUBLINGUAL Q5M PRN #25 tab 01/29/19 [Rx Last Taken Unknown] ondansetron HCl 8 mg PO Q8H PRN 01/07/21 [History Last Taken 01/06/21] amlodipine 10 mg PO DAILY 03/24/21 [History Last Taken 03/23/21] atorvastatin 80 mg PO QHS 03/24/21 [History Last Taken 03/23/21] ezetimibe 10 mg PO DAILY 03/24/21 [History Last Taken 03/24/21] losartan 100 mg PO DAILY 03/24/21 [History Last Taken 03/24/21] metoclopramide HCl 10 mg PO DAILY 03/24/21 [History Last Taken Unknown] metoprolol tartrate 25 mg PO BID 03/24/21 [History Last Taken 03/24/21] pantoprazole [Protonix] 40 mg PO DAILY 03/24/21 [History Last Taken Unknown] potassium chloride 20 meq PO DAILY 03/24/21 [History Last Taken Unknown] Allergy/AdvReac Type Severity Reaction Status Date / Time No Known Allergies Allergy Verified 03/24/21 10:25 environmental Allergy Intermediate itchy eyes Uncoded 03/24/21 10:25 Family History Father Heart disease Myocardial infarction Hypertension Brother Hypertension Sister Heart disease Myocardial infarction Surgical History H/O coronary artery bypass surgery (09/18/02) History of aortic valve replacement (03/03/19) History of coronary artery stent placement (12/31/18) History of hernia repair History of tonsillectomy Social History Smoking Status: Never smoker alcohol intake: never substance use type: does not use caffeine: No what type of physical activity do you participate in: walking frequency: daily ROS ROS Narrative Constitutional: Reports fatigue and weakness. No fever HEENT: Reports systems reviewed and no addt'l complaints, except as documented Respiratory/Chest: As described in HPI Gastrointestinal: Denies coffee ground emesis, hematemesis or vomiting. Gastroparesis, early satiety Genitourinary: Denies burning urination or new urinary tract symptoms Musculoskeletal: Does not reports joint pain and limited range of motion. No myalgia Neurologic: Denies seizure-like activity skin: No ulcer. No rash Endocrinology: Reports systems reviewed and no addt'l complaints, except as do cumented Hematologic/Lymphatic: Reports systems reviewed and no addt'l complaints, except as documented Rest 12 ROS are negative except as mentioned in HPI Vital Signs Vital Signs Vital Signs: 03/24/21 10:22 03/24/21 10:35 03/24/21 12:39 Temperature 97.4 F L Temperature Source Temporal Pulse Rate 61 60 Respiratory Rate 14 18 Blood Pressure 121/79 H 118/77 Blood Pressure Mean 93 90 Pulse Ox 100 99 Oxygen Delivery Method Room Air Room Air Room Air Weight Weight: 176 lb 5.917 oz Body Mass Index (BMI) 25.2 Physical Exam Narrative General: Alert, Oriented x3, Cooperative HEENT: Atraumatic, PERRLA, EOMI, Normocephalic Oral: No Gingival or Mucosal Lesions/ Ulcerations Neck: Supple, No JVD, Negative Carotid Bruits Lungs: Air entry diminished in bilateral lung bases. No crepitation/rhonchi. No hypoxia or tachypnea Cardiovascular: Sinus bradycardia/sinus arrhythmia, CABG scar. Normal S1, No rmal S2, No murmurs Abdomen: Bowel Sounds Present, Soft, Non Tender, Non-Distended : No renal angle tenderness. No suprapubic tenderness. Extremities: No edema, Capillary Refill Less than 3 Seconds Skin: No rashes, No breakdown Musculoskeletal: No Tenderness to Palpation of Joints or Extremities Neurological: Cranial nerves II-XII grossly intact, DTR 2+/4 and Symmetrical, Neuro grossly intact Psych/Mental Status: Flat affect Results Lab / Micro Data Result Diagrams: 03/24/21 10:50 03/24/21 10:50 Labs: Laboratory Results - last 24 hr 03/24/21 10:30: Total Bilirubin 0.90, Direct Bilirubin 0.23, AST 12 L, ALT 23, Alkaline Phosphatase 91, Total Protein 6.2 L, Albumin 3.0 L, Globulin 3.2 03/24/21 10:30: Lipase 79 03/24/21 10:50: WBC 3.5 L, RBC 3.97 L, Hgb 11.5 L, Hct 34.9 L, MCV 87.9, MCH 29.0, MCHC 33.0, RDW Std Deviation 42.7, RDW Coeff of Marcos 13.2, Plt Count 117 L, MPV 9.7, Immature Gran % (Auto) 0.300, Neut % (Auto) 79.2 H, Lymph % (Auto) 10.1 L, [place] % (Auto) 8.6, Eos % (Auto) 1.2, Baso % (Auto) 0.6, Absolute Neuts (auto) 2.8, Absolute Lymphs (auto) 0.35 L, Nucleated RBC % 0, Diff Path Review August03/24/21 10:50: Sodium 140, Potassium 4.2, Chloride 108 H, Carbon Dioxide 25.0, Anion Gap 7, BUN 34 H, Creatinine 3.09 H, Estim Creat Clear Calc 24.28, Est GFR (MDRD) Af Amer 26 L, Est GFR (MDRD) Non-Af 22 L, BUN/Creatinine Ratio 11.0, Glucose 112 H, Calcium 8.6, Troponin I High Sens 10 03/24/21 10:50: B-Natriuretic Peptide 158.5 H Micro: Microbiology 03/24/21 11:40 Nasal Secretion SARS-CoV-2 Antigen (Rapid) - Final Radiology Impression Chest X-Ray 03/24/21 10:35 IMPRESSION: Slight increase in the bilateral pleural effusions with bibasilar atelectasis. Electronically Signed: Nino Wood MD at 11:38 EST , Service support , Assessment & Plan Assessment/Plan (1) LEELA (acute kidney injury): PLAN: 1. LEELA, possible ATN from nephrotoxic medication possible Opdivo on CKD stage 2: BUN/creatinine elevated 34/3.09. Previous BUN/creatinine 21/1.16 on 03/01. It was slightly elevated 1.38 in May 2019. Patient denies any history of kidney failure or other kidney disease and has never seen pumper gauger. IV fluid Ringer lactate 100 mL/h for 2 L. Hold Opdivo. Monitor intake and output. Monitor kidney function electrolytes. UA, urine electrolytes, osmolality protein and creatinine ordered. Previous UA on 03/01 is benign. Hold losartan. 2. esophageal cancer status post neoadjuvant chemoradiation in the spring 2020 and then surgery in August 2020. Opdivo started on November 2020. Discussed with Dr. To on phone. CBC reviewed and as mentioned above. Mild leukopenia, lymphopenia, normocytic normochromic anemia and thrombocytopenia probably due to esophageal cancer/chemotherapy. Monitor CBC daily. 3. Coronary artery disease status post CABG, PCI/stent, TAVR for aortic stenosis: Patient does not have chest pain. EKG reviewed shows sinus rhythm. Patient had recent cardiac work-up in January 2021 with stress test was normal and echo EF 60% with normal LV function, mild LVH grade 1 diastolic dysfunction. No clinical features of CHF exacerbation. Continue home cardiac medications including baby aspirin and metoprolol. 4. Other comorbidities include dyslipidemia, decreased functional status/fatigue. PT OT and labor relations manager consult VTE prophylaxis: High risk: Heparin 5000 unit subcutaneous twice daily, based on creatinine clearance plus bilateral SCDs. Patient also high risk for bleeding because of thrombocytopenia and LEELA. Discontinue if platelet count drops less than 50,000 or hemoglobin less than 8 g% Living will/advanced directive/end of life care: Patient does not have living will or advanced directive or power of managing attorney for health. After discussion of benefits/risks procedures involved with full code, DNR CC arrest and DNR CC, the patient opted for full code. Patient does want artificial life support including intubation, tube feed, ventilator and/chest compression, central venous catheter, vasopressor and DC shock if needed during first time but does not want to prolong his life on life support for long time in vegetable state Total time spent in [id number] encounter in discussion of advanced di rective 16 minutes. Charges/Coding Visit Charges Inpatient E&M: 92498 Init Hosp L3 Procedures Hospitalists Procedures: 01698 Advncd Care Plan 30 Min
--- NOTE | 2021-03-24 13:15 | NURSING ---
MED SURG JUSTUS LEELA
[2021-03-24 13:56] LABS: Magnesium 2.2 mg/dL (1.6-2.6); Phosphorus 4.3 mg/dL (2.5-4.9)
[2021-03-24] MEDS: 0.9% Saline Lock 10 ML Syringe IV (14:48)
[2021-03-24] MEDS: Lactated Ringers 1,000 ML 100 ML IV (14:48)
[2021-03-24 15:10] LABS: Urine Sodium 62 mmol/L (Not Establ.)
[2021-03-24 15:19] LABS: Urine Chloride 70 mmol/L (Not Establ.)
[2021-03-24 15:27] LABS: Protein, Urine (Random) 15.1 mg/dL (<11.9); Protein:Creat Ratio 131 mg/g CRE (0-200)
[2021-03-24] MEDS: Metoclopramide 10 MG Tablet PO (15:51)
[2021-03-24 16:06] LABS: Osmolality, Urine 367 mOsm/KG
[2021-03-24] MEDS: Metoprolol Tartrate 25 MG Tablet PO (20:29)
[2021-03-24] MEDS: Pantoprazole Sodium 40 MG Tablet PO (20:29)
[2021-03-24] MEDS: Atorvastatin Calcium 80 MG Tablet PO (20:29)
[2021-03-24] MEDS: Heparin Injection (Vial) 5,000 UNIT/ML VIAL 5000 UNIT SC (20:30)
[2021-03-25] VITALS (7 sets, daily range): BP systolic 107–114; BP diastolic 68–75; PULSE 53–64; RESP 14–18; TEMP 36.6–37.1; O2SAT 96–97
[2021-03-25] MEDS: Lactated Ringers 1,000 ML 100 ML IV ×2 (00:21→15:03)
[2021-03-25] MEDS: Metoclopramide 10 MG Tablet PO ×3 (06:02→18:13)
[2021-03-25 06:33] LABS: Absolute Lymphocyte Count 0.36 X10^3/uL (0.83-4.51); Absolute Neutrophil Count 2.7 X10^3/uL (2.0-7.7); Basophil# 0.01 X10^3/uL; Basophil% 0.3 % (0-1); Eosinophil# 0.06 X10^3/uL; Eosinophils% 1.8 % (0-5); Hematocrit 32.4 % (40-54); Hemoglobin 10.9 g/dL (13.0-16.5); Lymphocyte # 0.36 X10^3/ul (0.83-4.51); Lymphocyte % 10.5 % (19-41); Mean Corp Hgb Conc 33.6 g/dL (32-36); Mean Corpuscular Hgb 29.4 pg (27.0-32.0); Mean Corpuscular Volume 87.3 fL (80-94); Mean Platelet Vol. 10.2 fl (6.2-12.0); Monocyte# 0.31 X10^3/uL; Monocyte% 9.1 % (0-10); NRBC Flagged by Analyzer 0 % (0-5); Neutrophil # 2.67 X10^3/uL (2.7-7.7); POSITIVE COUNT YES; POSITIVE DIFFERENTIAL YES; Platelet Count 96 K/mm3 (150-450); RBC Distribution Width CV 13.2 % (11.6-14.6); RBC Distribution Width SD 41.7 fl (35.1-43.9); Red Blood Count 3.71 M/mm3 (4.6-6.2); White Blood Count 3.4 K/mm3 (4.4-11.0)
[2021-03-25 06:35] LABS: Differential Indicated SCAN CRITERIA MET
[2021-03-25 06:59] LABS: Differential Comment SCANNED
[2021-03-25 07:02] LABS: Anion Gap 6 (5-15); BUN 31 mg/dL (7-18); BUN/Creat Ratio 12.4 RATIO (10-20); Calcium,Total 8.4 mg/dL (8.5-10.1); Chloride 110 mmol/L (98-107); EST Glomerular Filtration Rate 28 mL/min (>60); Est Glom Filt Rate - Afr Amer 33 mL/min (>60); Estimated Creatinine Clearance 30.01 ml/min; Glucose 86 mg/dL (74-106); Sodium Level 142 mmol/L (136-145)
[2021-03-25] MEDS: Metoprolol Tartrate 25 MG Tablet PO ×2 (07:51→22:34)
[2021-03-25] MEDS: Pantoprazole Sodium 40 MG Tablet PO ×2 (07:51→22:35)
[2021-03-25] MEDS: Ezetimibe 10 MG Tablet PO (07:51)
[2021-03-25] MEDS: amLODIPine 5 MG Tablet PO (07:51)
[2021-03-25] MEDS: Aspirin 81 MG TAB.CHEW PO (07:52)
[2021-03-25] MEDS: Potassium Chloride Oral Tablet 20 MEQ PO (07:52)
[2021-03-25] MEDS: Heparin Injection (Vial) 5,000 UNIT/ML VIAL 5000 UNIT SC (07:52)
[2021-03-25 09:56] LABS: Pathologist Review Reviewed
--- NOTE | 2021-03-25 10:05 | CASEMGMT ---
MICHELE HILLMAN Assessment: Face to Face with pt for initial transition planning/care coordination assessment. RN KADY introduced self and role at [facility], pt voices understanding and consents to assessment. Patient sitting up in bed in no apparent distress. Pt is A/O x4 and answers all questions appropriately at this time. Care providers, pharmacy, and demographics verified/updated. Admitting Dx: LEELA on CKD 3 PCP: Samantha Specialists: Masci- onc, Ludin- cardio Preferred Pharmacy: [facility] Insurance: Medicare, Medical [facility] Prescription Benefit: yes LW/HPOA: Pt denies having a LW/DPOA and denies need for info regarding AD. LNOK: Kenisha Landa Living Arrangements: Pt lives with in ranch duplex with two stairs to enter the home. No handrail in place. Patient reports he is independent with ADLs. Transportation: Pt drives self and denies concerns with transportation. DME/HHC/SNF: Patient has a cane and walker. Patient denies having previous HHC or SNF stays. Pt states no concerns with going home at time of dc. Pt states no further concerns/needs. CM to follow. Advised pt to ask CM if any further question/concerns/needs arise, voices understanding. Pt Goal: home Plan: home
--- NOTE | 2021-03-25 13:42 | PN.HOSP_ITS ---
Subjective Subjective No fever or chills. No decrease in urine output. Objective Data Objective Data Vital Signs: Vital Signs Temp Pulse Resp BP Pulse Ox 97.8 F 63 14 109/69 96 03/25/21 07:43 03/25/21 07:51 03/25/21 07:43 03/25/21 07:43 03/25/21 07:43 Oxygen Delivery Method Room Air Weight: 181 lb 14.102 oz Body Mass Index (BMI) 26.1 Intake & Output: Intake and Output for Last 24 Hours 03/23/21 03/24/21 03/25/21 23:59 23:59 23:59 Intake Total 950 / 1250 2305 / 2305 Output Total 325 / 325 Balance 950 / 1250 1979 Lab / Micro Data Result Diagrams: 03/25/21 06:01 03/25/21 06:01 Labs: Laboratory Results - last 24 hr 03/24/21 10:50: Diff Path Review Reviewed 03/24/21 10:50: Phosphorus 4.3, Magnesium 2.2 03/24/21 13:15: COVID-19 (YEISON) Not Detected 03/24/21 14:30: Ur Random Sodium 62 03/24/21 14:30: Urine Potassium 25.0 03/24/21 14:30: Urine Chloride 70 03/24/21 14:30: U Random Total Protein 15.1 H, Urine Creatinine 115.00, Protein/Creatinin Ratio 131 03/24/21 14:30: Urine Osmolality 367 03/24/21 14:30: U Random Total Protein Cancelled 03/25/21 06:01: WBC 3.4 L, RBC 3.71 L, Hgb 10.9 L, Hct 32.4 L, MCV 87.3, MCH 29.4, MCHC 33.6, RDW Std Deviation 41.7, RDW Coeff of Marcos 13.2, Plt Count 96 L, MPV 10.2, Immature Gran % (Auto) 0.300, Neut % (Auto) 78.0 H, Lymph % (Auto) 10.5 L, [place] % (Auto) 9.1, Eos % (Auto) 1.8, Baso % (Auto) 0.3, Absolute Neuts (auto) 2.7, Absolute Lymphs (auto) 0.36 L, Nucleated RBC % 0, Differential Comment SCANNED, Diff Path Review May foll 12/17/21 06:01: Sodium 142, Potassium 4.0, Chloride 110 H, Carbon Dioxide 26.0, Anion Gap 6, BUN 31 H, Creatinine 2.50 H, Estim Creat Clear Calc 30.01, Est GFR (MDRD) Af Amer 33 L, Est GFR (MDRD) Non-Af 28 L, BUN/Creatinine Ratio 12.4, Glucose 86, Calcium 8.4 L Micro: Microbiology 03/24/21 11:40 Nasal Secretion SARS-CoV-2 Antigen (Rapid) - Final Physical Exam Narrative General: Alert, Oriented x3, Cooperative HEENT: Atraumatic, PERRLA, EOMI, Normocephalic Oral: No Gingival or Mucosal Lesions/ Ulcerations Neck: Supple, No JVD, Negative Carotid Bruits Lungs: Air entry diminished in bilateral lung bases. No crepitation/rhonchi. Cardiovascular: Sinus bradycardia/sinus arrhythmia, CABG scar. Normal S1, Normal S2, No murmurs Abdomen: Bowel Sounds Present, Soft, Non Tender, Non-Distended : Urine output is good no renal angle tenderness. No suprapubic tenderness. Extremities: No edema, Capillary Refill Less than 3 Seconds Skin: No rashes, No breakdown Musculoskeletal: No Tenderness to Palpation of Joints or Extremities Neurological: Cranial nerves II-XII grossly intact, DTR 2+/4 and Symmetrical, Neuro grossly intact Psych/Mental Status: Flat affect Assessment & Plan Assessment/Plan (1) LEELA (acute kidney injury): PLAN: 1. LEELA, possible ATN from nephrotoxic medication possible Opdivo on CKD stage 2: BUN/creatinine elevated 34/3.09. Previous BUN/creatinine 21/1.16 on 03/01. It was slightly elevated 1.38 in May 2019. Patient denies any history of kidney failure or other kidney disease and has never seen vocational school teacher. IV fluid Ringer lactate 100 mL/h for 2 L. Hold Opdivo. Monitor intake and output. Monitor kidney function electrolytes. UA, urine electrolytes, osmolality protein and creatinine ordered. Previous UA on 03/01 is benign. Hold losartan. 03/25: Urine protein 15.1 mildly high, protein creatinine ratio 131. Urine potassium 25, sodium 62, chloride 70, Walker 367. Serum potassium and magnesium are in normal range. Improvement in creatinine. Kidney and bladder ultrasound noted. Patient agrees no need for nephrology consult as creatinine is improving. No dysuria. 2. esophageal cancer status post neoadjuvant chemoradiation in the spring 2020 and then surgery in August 2020. Opdivo started on November 2020. Discussed with Dr. To on phone. CBC reviewed and as mentioned above. Mild leukopenia, lymphopenia, normocytic normochromic anemia and thrombocytopenia probably due to esophageal cancer/chemotherapy. Monitor CBC daily. 03/25: CBC parameter did not show much change. Mild thrombocytopenia. WBC count and hemoglobin on baseline. DC heparin subcu. Bilateral SCDs 3. Coronary artery disease status post CABG, PCI/stent, TAVR for aortic stenosis: Patient does not have chest pain. EKG reviewed shows sinus rhythm. Patient had recent cardiac work-up in January 2021 with stress test was normal and echo EF 60% with normal LV function, mild LVH grade 1 diastolic dysfunction. No clinical features of CHF exacerbation. Continue home cardiac medications including baby aspirin and metoprolol. 4. Other comorbidities include dyslipidemia, decreased functional status/fatigue. PT OT and director of content marketing consult VTE prophylaxis: High risk: DC heparin. Bilateral SCDs. Mild thrombocytopenia noticed, propensity for further decrease. Patient agrees with the plan of care. Living will/advanced directive/end of life care: Patient does not have living will or advanced directive or power of corporate associate attorney for health. After discussion of benefits/risks procedures involved with full code, DNR CC arrest and DNR CC, the patient opted for full code. Patient does want artificial life support including intubation, tube feed, ventilator and/chest compression, central venous catheter, vasopressor and DC shock if needed during first time but does not want to prolong his life on life support for long time in vegetable state Total time spent in [id number]-[id number] encounter in discussion of advanced directive 16 minutes. Microbiology Past 72 Hours 03/24/21 11:40 Nasal Secretion SARS-CoV-2 Antigen (Rapid) - Final Laboratory Results 03/24/21 10:50: Diff Path Review Reviewed 03/24/21 10:50: Phosphorus 4.3, Magnesium 2.2 03/24/21 13:15: COVID-19 (YEISON) Not Detected 03/24/21 14:30: Ur Random Sodium 62 03/24/21 14:30: Urine Potassium 25.0 03/24/21 14:30: Urine Chloride 70 03/24/21 14:30: U Random Total Protein 15.1 H, Urine Creatinine 115.00, Protein/Creatinin Ratio 131 03/24/21 14:30: Urine Osmolality 367 03/24/21 14:30: U Random Total Protein Cancelled 03/25/21 06:01: WBC 3.4 L, RBC 3.71 L, Hgb 10.9 L, Hct 32.4 L, MCV 87.3, MCH 29.4, MCHC 33.6, RDW Std Deviation 41.7, RDW Coeff of Marcos 13.2, Plt Count 96 L, MPV 10.2, Immature Gran % (Auto) 0.300, Neut % (Auto) 78.0 H, Lymph % (Auto) 10.5 L, [place] % (Auto) 9.1, Eos % (Auto) 1.8, Baso % (Auto) 0.3, Absolute Neuts (auto) 2.7, Absolute Lymphs (auto) 0.36 L, Nucleated RBC % 0, Differential Comment SCANNED, Diff Path Review August03/25/21 06:01: Sodium 142, Potassium 4.0, Chloride 110 H, Carbon Dioxide 26.0, Anion Gap 6, BUN 31 H, Creatinine 2.50 H, Estim Creat Clear Calc 30.01, Est GFR (MDRD) Af Amer 33 L, Est GFR (MDRD) Non-Af 28 L, BUN/Creatinine Ratio 12.4, Glucose 86, Calcium 8.4 L Clinical Impression(s) from Imaging Studies Chest X-Ray 03/24/21 10:35 IMPRESSION: Slight increase in the bilateral pleural effusions with bibasilar atelectasis. Charges/Coding Visit Charges Inpatient E&M: 10493 Subs Hosp L2
--- NOTE | 2021-03-25 13:56 | US_ITS ---
STUDY: RENAL ULTRASOUND - COMPLETE REASON FOR EXAM: Male, 65 years old. LEELA TECHNIQUE: Ultrasound evaluation of the kidneys was performed with real-time and static johnston-scale imaging. COMPARISON: None. FINDINGS: RIGHT KIDNEY: Normal location of the right kidney, which is normal in size. The right kidney measures 12.1 cm x 6.1 cm x 5.3 cm. There is a normal cortex of the right kidney. The renal cortex measures 1.1 cm. There is no right renal mass or cyst. There are no right renal calculi. There is no right hydronephrosis. There is evidence of calcified intrarenal arterial branches. DISTAL RIGHT URETER: There is non-visualization of the distal right ureter. There is no demonstrated right ureterovesical junction calculus. There is a visualized right ureteral jet. LEFT KIDNEY: Normal location of the left kidney, which is normal in size. The left kidney measures 11.7 x 4.6 cm x 6.1 cm. There is a normal cortex of the left kidney. The renal cortex measures 1.0 cm. There is no left renal mass or cyst. There are no left renal calculi. There is no left hydronephrosis. Findings suggestive of atherosclerotic plaque formation of branches of the intrarenal arterial branches. DISTAL LEFT URETER: There is non-visualization of the distal left ureter. There is no demonstrated left ureterovesical junction calculus. There is a visualized left ureteral jet. BLADDER: The bladder is not adequately distended for adequate evaluation. There is evidence of a prostatic enlargement with indentation at the bladder base. US/Kidney and Bladder IMPRESSION: Findings suggestive of atherosclerotic plaque formation of the intrarenal arterial branches. Prostatic enlargement with indentation of the bladder base. Electronically Signed: Nino Wood MD at 15:18 EST , Service support ,
[2021-03-25] MEDS: Ensure Clear 120 ML Liquid PO ×3 (15:03→22:33)
[2021-03-25] MEDS: 0.9% Saline Lock 10 ML Syringe IV ×2 (15:07→22:36)
[2021-03-25] MEDS: Atorvastatin Calcium 80 MG Tablet PO (22:35)
[2021-03-26 01:22] VITALS: BP 128/70; PULSE 58; RESP 18; TEMP 36.9; O2SAT 97
[2021-03-26 06:02] VITALS: BP 121/76; PULSE 57; RESP 18; TEMP 36.7; O2SAT 97
[2021-03-26] MEDS: 0.9% Saline Lock 10 ML Syringe IV (06:06)
[2021-03-26] MEDS: Metoclopramide 10 MG Tablet PO (06:06)
[2021-03-26 06:14] LABS: Absolute Lymphocyte Count 0.44 X10^3/uL (0.83-4.51); Absolute Neutrophil Count 2.4 X10^3/uL (2.0-7.7); Basophil# 0.02 X10^3/uL; Basophil% 0.6 % (0-1); Eosinophil# 0.06 X10^3/uL; Eosinophils% 1.8 % (0-5); Hematocrit 32.4 % (40-54); Hemoglobin 10.9 g/dL (13.0-16.5); Lymphocyte # 0.44 X10^3/ul (0.83-4.51); Lymphocyte % 13.4 % (19-41); Mean Corp Hgb Conc 33.6 g/dL (32-36); Mean Corpuscular Hgb 29.6 pg (27.0-32.0); Mean Platelet Vol. 9.7 fl (6.2-12.0); Monocyte# 0.33 X10^3/uL; NRBC Flagged by Analyzer 0 % (0-5); Neutrophil # 2.43 X10^3/uL (2.7-7.7); Neutrophil % 73.9 % (47-70); POSITIVE DIFFERENTIAL YES; Platelet Count 105 K/mm3 (150-450); RBC Distribution Width CV 13.5 % (11.6-14.6); RBC Distribution Width SD 43.4 fl (35.1-43.9); Red Blood Count 3.68 M/mm3 (4.6-6.2); White Blood Count 3.3 K/mm3 (4.4-11.0)
[2021-03-26 06:24] LABS: Differential Indicated SCAN CRITERIA MET
[2021-03-26 06:39] LABS: Differential Comment SCANNED
[2021-03-26 06:41] LABS: Anion Gap 6 (5-15); BUN 29 mg/dL (7-18); BUN/Creat Ratio 16.1 RATIO (10-20); Calcium,Total 8.1 mg/dL (8.5-10.1); Chloride 110 mmol/L (98-107); EST Glomerular Filtration Rate 40 mL/min (>60); Est Glom Filt Rate - Afr Amer 49 mL/min (>60); Estimated Creatinine Clearance 41.12 ml/min; Glucose 92 mg/dL (74-106); Potassium 4.1 mmol/L (3.5-5.1); Sodium Level 142 mmol/L (136-145)
[2021-03-26 08:10] VITALS: BP 121/68; PULSE 56; RESP 18; TEMP 37; O2SAT 100
[2021-03-26] MEDS: Ensure Clear 120 ML Liquid PO (08:19)
[2021-03-26] MEDS: Aspirin 81 MG TAB.CHEW PO (08:20)
[2021-03-26] MEDS: Potassium Chloride Oral Tablet 20 MEQ PO (08:20)
[2021-03-26 08:21] VITALS: BP 121/68; PULSE 56
[2021-03-26] MEDS: Metoprolol Tartrate 25 MG Tablet PO (08:21)
[2021-03-26] MEDS: amLODIPine 5 MG Tablet PO (08:21)
[2021-03-26] MEDS: Ezetimibe 10 MG Tablet PO (08:22)
[2021-03-26] MEDS: Pantoprazole Sodium 40 MG Tablet PO (08:22)
--- NOTE | 2021-03-26 10:11 | PCM.DC ---
Discharge Instructions Diet Discharge Diet: Low fat / Low cholesterol and 2000 mg Sodium Diet Activity Discharge Activity: Return to Normal Activity Weight Bearing Status: Weight bearing as tolerated Dressing / Incision Call your doctor if you observe: Fever of 101 or Higher, Numbness or Tingling, Change in Color, Inability to urinate, Shortness of breath, Dizziness, Chest pain, Prolonged hiccupping, Increased palpitations (irregular heartbeat), Calf discomfort and Uncontrolled pain Follow Up Care Test Results: Test results from this visit will be discussed in further detail at your follow-up appointment, if applicable. Discharge Plan Admission Admit Date/Time: 03/24/21 12:45 Primary Reason for Your Visit: LEELA Attending Provider: Cuco Sweeney Primary Care Provider: Yaw Singh Discharge Orders/Prescriptions Prescriptions: Continued aspirin 81 MG tablet,chewable 81 mg PO DAILY@0800 RF: 0 ondansetron HCl 8 mg tablet 8 mg PO Q8H PRN (Reason: Nausea) RF: 0 pantoprazole [Protonix] 40 mg tablet,delayed release (DR/EC) 40 mg PO BID RF: 0 metoclopramide HCl 10 mg tablet 10 mg PO TID RF: 0 atorvastatin 80 mg tablet 80 mg PO QHS RF: 0 amlodipine 10 mg tablet 10 mg PO DAILY RF: 0 ezetimibe 10 mg tablet 10 mg PO DAILY RF: 0 nitroglycerin 0.4 mg tablet, sublingual 0.4 mg SUBLINGUAL Q5M PRN (Reason: Chest Pain) Qty: 25 RF: 3 metoprolol tartrate 25 mg tablet 25 mg PO BID Qty: 0 RF: 0 Held potassium chloride 20 mEq tablet,ER particles/crystals 20 meq PO DAILY RF: 0 Hold Instructions: Hold for 1 week and follow with BMP in 1 week with PCP losartan 100 mg tablet 100 mg PO DAILY RF: 0 Hold Instructions: Hold for 1 week and follow with BMP in 1 week with PCP Referrals / Follow Up: Yaw Singh MD [Primary Care Provider] - Within 1 Week (With BMP for acute kidney injury) Trace To DO [STAFF PHYSICIAN] - Within 2 Weeks (for H/o ca esophagus. Opdivo held) Disposition Disposition (needs filled in before D/C Order can be placed): Home, Self Care
--- NOTE | 2021-03-26 10:11 | PCM.DC.SUM ---
Providers Date of Admission: 03/24/21 Primary Care Physician: Dr. Yaw Singh MD Reason For Visit: LEELA ON CKD 3 Diagnosis Discharge Diagnosis (1) LEELA (acute kidney injury): Status: Acute Code(s): N17.9 - Acute kidney failure, unspecified Medications at Discharge Home Medications aspirin 81 mg PO DAILY@0800 01/23/14 ondansetron HCl 8 mg PO Q8H PRN 01/07/21 amlodipine 10 mg PO DAILY 03/24/21 atorvastatin 80 mg PO QHS 03/24/21 ezetimibe 10 mg PO DAILY 03/24/21 losartan 100 mg PO DAILY 03/24/21 metoclopramide HCl 10 mg PO TID 03/24/21 pantoprazole [Protonix] 40 mg PO BID 03/24/21 potassium chloride 20 meq PO DAILY 03/24/21 metoprolol tartrate 25 mg PO BID #0 tab 03/26/21 nitroglycerin 0.4 mg SUBLINGUAL Q5M PRN #25 tab 03/26/21 Hospital Course Summary of Care Provided Hospital Course: 65-year-old question gentleman was admitted with generalized weakness, shortness of breath after 1 week of left thoracocentesis. He was found to have acute kidney injury last. 1. LEELA, possible ATN from nephrotoxic medication possible Opdivo on CKD stage 2: BUN/creatinine elevated 34/3.09. Previous BUN/creatinine 21/1.16 on 03/01. It was slightly elevated 1.38 in May 2019. 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 IV fluid Ringer lactate 100 mL/h for 2 L. Hold Opdivo. Intake/output, kidney function was monitored. Urine protein 15.1 mildly high, protein creatinine ratio 131. Urine potassium 25, sodium 62, chloride 70, Walker 367. Serum potassium and magnesium are in normal range. Improvement in creatinine. Kidney and bladder shows mild atherosclerotic plaque on intrarenal arteries. No dysuria. Prosthetic alignment with indentation to the bladder base. Hold losartan and potassium supplement for 1 week until repeat BMP is done and follow with PCP. 2. esophageal cancer status post neoadjuvant chemoradiation in the spring 2020 and then surgery in August 2020. Opdivo started on November 2020. Discussed with Dr. To on phone. CBC reviewed and as mentioned above. Mild leukopenia, lymphopenia, normocytic normochromic anemia and thrombocytopenia probably due to esophageal cancer/chemotherapy. Monitor CBC daily. 03/25: CBC parameter did not show much change. Mild thrombocytopenia. WBC count and hemoglobin on baseline. Follows Dr. To. 3. Coronary artery disease status post CABG, PCI/stent, TAVR for aortic stenosis: Patient does not have chest pain. EKG reviewed shows sinus rhythm. Patient had recent cardiac work-up in January 2021 with stress test was normal and echo EF 60% with normal LV function, mild LVH grade 1 diastolic dysfunction. No clinical features of CHF exacerbation. Continue home cardiac medications including baby aspirin and metoprolol. 4. Other comorbidities include dyslipidemia, decreased functional status/fatigue. PT OT and automotive internet sales consultant consult VTE prophylaxis: High risk: DC heparin. Bilateral SCDs. Mild thrombocytopenia noticed, propensity for further decrease. Discharge medication reconciliation done. Discharge follow-up instructions completed. Discharge process discussed with the patient and all questions were answered to patient's satisfaction. Discharged home and follow with PCP in 1 week. Total time spent, exact 35 minutes on discharge meds reconciliation, examination, coordination of care with nurses and ancillary staff, review of imaging and blood test and discussion with the patient on follow-up instructions Clinical Impression(s) from Imaging Studies Chest X-Ray 03/24/21 10:35 IMPRESSION: Slight increase in the bilateral pleural effusions with bibasilar atelectasis. Electronically Signed: Nino Wood MD at 11:38 EST , Service support , Renal Ultrasound 03/25/21 13:56 IMPRESSION: Findings suggestive of atherosclerotic plaque formation of the intrarenal arterial branches. Prostatic enlargement with indentation of the bladder base. Microbiology Past 72 Hours 03/24/21 11:40 Nasal Secretion SARS-CoV-2 Antigen (Rapid) - Final Laboratory Dixfrpm99/16/21 10:50: Diff Path Review Reviewed 03/24/21 10:50: Phosphorus 4.3, Magnesium 2.2 03/24/21 13:15: COVID-19 ([facility]) Not Detected 03/24/21 14:30: Ur Random Sodium 62 03/24/21 14:30: Urine Potassium 25.0 03/24/21 14:30: Urine Chloride 70 03/24/21 14:30: U Random Total Protein 15.1 H, Urine Creatinine 115.00, Protein/Creatinin Ratio 131 03/24/21 14:30: Urine Osmolality 367 03/24/21 14:30: U Random Total Protein Cancelled Clinical Impression(s) from Imaging Studies Chest X-Ray 03/24/21 10:35 IMPRESSION: Slight increase in the bilateral pleural effusions with bibasilar atelectasis. Renal Ultrasound 03/25/21 13:56 IMPRESSION: Findings suggestive of atherosclerotic plaque formation of the intrarenal arterial branches. Prostatic enlargement with indentation of the bladder base. Physical Exam Narrative General: Alert, Oriented x3, Cooperative HEENT: Atraumatic, PERRLA, EOMI, Normocephalic Oral: No Gingival or Mucosal Lesions/ Ulcerations Neck: Supple, No JVD, Negative Carotid Bruits Lungs: Air entry diminished in bilateral lung bases. No crepitation/rhonchi. Cardiovascular: sinus arrhythmia, CABG scar. Normal S1, Normal S2, No murmurs Abdomen: Bowel Sounds Present, Soft, Non Tender, Non-Distended : Urine output is good no renal angle tenderness. No suprapubic tenderness. Extremities: No edema, Capillary Refill Less than 3 Seconds Skin: No rashes, No breakdown Musculoskeletal: No Tenderness to Palpation of Joints or Extremities Neurological: Cranial nerves II-XII grossly intact, DTR 2+/4 and Symmetrical, Neuro grossly intact Psych/Mental Status: Flat affect Medical Records Data Medical Nutrition Assessment Dietitian: Malnutrition Criteria Met Start: 03/25/21 14:46 Freq: Status: Active Protocol: Document 03/25/21 14:46 RMA (Rec: 03/25/21 14:46 RMA [id number]) Nutrition Malnutrition Evidence of Malnutrition Exists Yes Malnutrition (severe): Acute Illness/Injury Evidenced By Suboptimal Energy Intake ( Severe),Weight Loss (Severe) Clinical Problem Acute Disease or Injury Related Malnutrition Etiology Severe protein/calorie malnutrition in the context of acute illness related to swallowing difficulty and need for J-tube enteral feedings due to esophageal cancer Signs/Symptoms as evidenced by 35% wt loss x 11-12 months, inability to take PO nutrition and oral intake meeting less than 50% meals. Status Active Problem Recommendation Dietitian Recommendations/Changes Continue Cardiac diet as ordered. Will add 120ml ensure clear 4 times per day w/ medpass. Adjust ONS and diet as needed to optimize nutrition and prevent wt loss. Weight / BMI Weight Weight: 181 lb 14.102 oz Body Mass Index (BMI) 26.1 ABG / Lab / Microbiology Data Result Diagrams: 03/26/21 06:07 03/26/21 06:07 Laboratory: Laboratory Results - last 24 hr 03/26/21 06:07: WBC 3.3 L, RBC 3.68 L, Hgb 10.9 L, Hct 32.4 L, MCV 88.0, MCH 29.6, MCHC 33.6, RDW Std Deviation 43.4, RDW Coeff of Marcos 13.5, Plt Count 105 L, MPV 9.7, Immature Gran % (Auto) 0.300, Neut % (Auto) 73.9 H, Lymph % (Auto) 13.4 L, [place] % (Auto) 10.0, Eos % (Auto) 1.8, Baso % (Auto) 0.6, Absolute Neuts (auto) 2.4, Absolute Lymphs (auto) 0.44 L, Nucleated RBC % 0, Differential Comment SCANNED, Diff Path Review August03/26/21 06:07: Sodium 142, Potassium 4.1, Chloride 110 H, Carbon Dioxide 26.0, Anion Gap 6, BUN 29 H, Creatinine 1.80 H, Estim Creat Clear Calc 41.12, Est GFR (MDRD) Af Amer 49 L, Est GFR (MDRD) Non-Af 40 L, BUN/Creatinine Ratio 16.1, Glucose 92, Calcium 8.1 L Microbiology: Microbiology 03/24/21 11:40 Nasal Secretion SARS-CoV-2 Antigen (Rapid) - Final Radiography Diagnostic Testing: Radiology Impression Renal Ultrasound 03/25/21 13:56 IMPRESSION: Findings suggestive of atherosclerotic plaque formation of the intrarenal arterial branches. Prostatic enlargement with indentation of the bladder base. Electronically Signed: Nino Wood MD at 15:18 EST , Service support , Meaningful Use Info Meaningful Use Diagnoses (Choose all that apply): None applicable Discharge Plan Admission Admit Date/Time: 03/24/21 12:45 Primary Reason for Your Visit: LEELA Attending Provider: Cuco Sweeney Primary Care Provider: Yaw Singh Discharge Orders/Prescriptions Prescriptions: Continued aspirin 81 MG tablet,chewable 81 mg PO DAILY@0800 RF: 0 ondansetron HCl 8 mg tablet 8 mg PO Q8H PRN (Reason: Nausea) RF: 0 pantoprazole [Protonix] 40 mg tablet,delayed release (DR/EC) 40 mg PO BID RF: 0 metoclopramide HCl 10 mg tablet 10 mg PO TID RF: 0 atorvastatin 80 mg tablet 80 mg PO QHS RF: 0 amlodipine 10 mg tablet 10 mg PO DAILY RF: 0 ezetimibe 10 mg tablet 10 mg PO DAILY RF: 0 nitroglycerin 0.4 mg tablet, sublingual 0.4 mg SUBLINGUAL Q5M PRN (Reason: Chest Pain) Qty: 25 RF: 3 metoprolol tartrate 25 mg tablet 25 mg PO BID Qty: 0 RF: 0 Held potassium chloride 20 mEq tablet,ER particles/crystals 20 meq PO DAILY RF: 0 Hold Instructions: Hold for 1 week and follow with BMP in 1 week with PCP losartan 100 mg tablet 100 mg PO DAILY RF: 0 Hold Instructions: Hold for 1 week and follow with BMP in 1 week with PCP Referrals / Follow Up: Yaw Singh MD [Primary Care Provider] - Within 1 Week (With BMP for acute kidney injury) Trace To DO [STAFF PHYSICIAN] - Within 2 Weeks (for H/o ca esophagus. Opdivo held) Disposition Disposition (needs filled in before D/C Order can be placed): Home, Self Care Charges/Coding Visit Charges Inpatient E&M: 37567 Disch Hosp
[2021-03-26 11:39] VITALS: BP 121/68; PULSE 56; RESP 18; TEMP 37; O2SAT 100
[2021-03-28 10:23] LABS: Pathologist Review Reviewed
[2021-03-29 09:23] LABS: Pathologist Review Reviewed
== END 2021-03-26 11:39 | disposition home or self-care (01) | DRG 682 ==
LOC: ED 12:50 → MS3 13:19
PROVIDERS: Admitting Provider Internal Medicine; Emergency Provider Student in an Organized Health Care Education/Training Program; PCP Family Medicine; Visit Provider Internal Medicine
DX: N17.0 Acute kidney failure with tubular necrosis (principal); D61.810 Antineoplastic chemotherapy induced pancytopenia; E43 Unspecified severe protein-calorie malnutrition; C15.9 Malignant neoplasm of esophagus, unspecified; J90 Pleural effusion, not elsewhere classified; I25.810 Atherosclerosis of coronary artery bypass graft(s) without angina pectoris; I13.0 Hypertensive heart and chronic kidney disease with heart failure and stage 1 through stage 4 chronic kidney disease, or unspecified chronic kidney disease; I50.32 Chronic diastolic (congestive) heart failure; N18.2 Chronic kidney disease, stage 2 (mild); I35.0 Nonrheumatic aortic (valve) stenosis; Z95.5 Presence of coronary angioplasty implant and graft; Z95.1 Presence of aortocoronary bypass graft; Z95.2 Presence of prosthetic heart valve; Z90.3 Acquired absence of stomach [part of]; E78.5 Hyperlipidemia, unspecified; Z79.82 Long term (current) use of aspirin; Z79.899 Other long term (current) drug therapy
CPT/HCPCS: 36415; 71045; 76770; 80048; 80076; 82436; 82570; 83690; 83735; 83880; 83935; 84100; 84133; 84156; 84300; 84484; 85025; 87426; 87635; 93005; 97165; 99284; J7120; U0005; A4216; U0003

== ENCOUNTER 2022-06-23 14:56 | Emergency (ER) | payer MEDICARE, OTHER, SELFPAY ==
[2022-06-23 14:56] VITALS: BP 124/71; PULSE 60; RESP 16; TEMP 36.6; O2SAT 99; BMI 23.4
[2022-06-23 16:20] LABS: Absolute Lymphocyte Count 0.55 X10^3/uL (0.83-4.51); Absolute Neutrophil Count 8.1 X10^3/uL (2.0-7.7); Basophil# 0.03 X10^3/uL; Basophil% 0.3 % (0-1); Eosinophil# 0.04 X10^3/uL; Eosinophils% 0.4 % (0-5); Hematocrit 42.6 % (40-54); Hemoglobin 13.4 g/dL (13.0-16.5); Lymphocyte # 0.55 X10^3/ul (0.83-4.51); Lymphocyte % 5.8 % (19-41); Mean Corp Hgb Conc 31.5 g/dL (32-36); Mean Corpuscular Hgb 26.8 pg (27.0-32.0); Mean Corpuscular Volume 85.2 fL (80-94); Mean Platelet Vol. 9.8 fl (6.2-12.0); Monocyte# 0.77 X10^3/uL; Monocyte% 8.1 % (0-10); NRBC Flagged by Analyzer 0 % (0-5); Neutrophil # 8.05 X10^3/uL (2.7-7.7); POSITIVE DIFFERENTIAL YES; Platelet Count 173 K/mm3 (150-450); RBC Distribution Width CV 14.4 % (11.6-14.6); RBC Distribution Width SD 44.3 fl (35.1-43.9); White Blood Count 9.5 K/mm3 (4.4-11.0)
[2022-06-23 16:21] LABS: Differential Indicated SCAN CRITERIA MET
--- NOTE | 2022-06-23 16:23 | CT_ITS ---
STUDY: CT Abdomen And Pelvis W/ Contrast Injection 06/23/2022 6:41 PM REASON FOR EXAM: Male, 67 years old. Abdominal pain abdominal pain -- IV PO Contrast Individualized dose optimization techniques were used for this CT. COMPARISON: None. TECHNIQUE: CT Abdomen And Pelvis W/ Contrast Injection Oral and amp; IV Gastrografin and amp; 100mL Isovue-300 FINDINGS: There are atherosclerotic calcifications of visualized coronary arteries. Diffuse loculated bilateral pleural effusions. Normal liver. Normal gallbladder and extrahepatic biliary system. Normal spleen. Normal pancreas. Normal bilateral adrenal glands. Non obstructive 2 mm right renal parenchymal stones. Moderate hydronephrosis caused by left mid 4.4 mm ureteral stone. Non obstructive 2 mm left renal parenchymal stones. Large hiatal hernia likely related to gastric pull-through procedure. Normal small intestine. There are multiple colonic diverticula consistent with diverticulosis. There is non-visualization of the appendix. There are calcifications of the abdominal aorta. This is consistent for atherosclerotic disease. There is NO abdominal aortic aneurysm. Vascular workup can be obtained based on clinical correlation. Normal inferior vena cava. Subcentimeter mesenteric lymph nodes. Normal urinary bladder. There is enlargement of the prostate gland. Normal abdominal wall. Normal osseous structures. CT/Abdomen/Pelvis WITH Contrast IMPRESSION: (NOT LISTED IN ORDER OF SIGNIFICANCE) Moderate hydronephrosis caused by left mid 4.4 mm ureteral stone. Diffuse loculated bilateral pleural effusions. Other findings as above. Electronically Signed: Hemanth Anderson MD at 18:45 EDT ,
--- NOTE | 2022-06-23 16:24 | EDS_ITS ---
HPI History of Present Illness Chief Complaint: Abd Pain Informant: patient Onset/Context/Timing Onset: Days (5 days) Context: Gradual Onset Timing: Waxes and wanes Current Severity: Moderate Maximum Severity: Severe Narrative Narrative: Patient presents secondary to mid abdominal pain. Last evening he developed diarrhea with nausea and vomiting as well. He has not had fever. Patient states to press on his abdomen he does not note increased pain, but he has a deep-seated pain. He states last night it was worse and not quite as bad today. He does have a history of esophageal cancer. He has had a third of his stomach removed along with the distal portion of his esophagus. He states his follow-up scopes and CT scans have been good. [facility] Medical History abnormal stress test Adenocarcinoma of esophagus LEELA (acute kidney injury) Angina pectoris 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 angina pectoris Atherosclerosis of coronary artery of [place] heart without angina pectoris Atherosclerotic heart disease of [place] coronary artery with other forms of angina pectoris Encounter for long-term current use of high risk medication Esophageal carcinoma Essential (primary) hypertension Exertional chest pain Hyperlipidemia Ischemic heart disease due to coronary artery obstruction Non-rheumatic aortic stenosis Non-smoker Syncope and collapse URI (upper respiratory infection) Home Medications aspirin 81 mg chewable tablet 81 mg PO DAILY@0800 HEALTH 01/23/14 [History Last Taken 1 Week Ago ~03/17/21] pantoprazole 40 mg tablet,delayed release (Protonix) 40 mg PO BID GERD 03/24/21 [History Last Taken 03/24/21] amlodipine 10 mg tablet 10 mg PO DAILY BP #90 tabs 05/15/22 [Rx Last Taken Unknown] atorvastatin 80 mg tablet 80 mg PO QHS CHOLESTEROL #90 tabs 05/15/22 [Rx Last Taken Unknown] ezetimibe 10 mg tablet 10 mg PO DAILY CHOLESTEROL #90 tabs 05/15/22 [Rx Last Taken Unknown] metoprolol tartrate 25 mg tablet 25 mg PO BID HEART #180 tabs 05/15/22 [Rx Last Taken Unknown] nitroglycerin 0.4 mg sublingual tablet 0.4 mg sublingual Q5M PRN Chest Pain #25 tabs 05/15/22 [Rx Last Taken Unknown] hydrocodone-acetaminophen 5-325mg 5mg-325mg 1 tab PO Q6H PRN PRN Pain 3 days #10 TABLETS 06/23/22 [Rx Last Taken Unknown] ondansetron 4 mg disintegrating tablet 4 mg PO Q8H PRN PRN Nausea #10 tabs 06/23/22 [Rx Last Taken Unknown] Allergy/AdvReac Type Severity Reaction Status Date / Time Environmental Allergies: Allergy Itching Verified 06/23/22 14:59 Uncoded Family History Father Heart disease Myocardial infarction Hypertension Brother Hypertension Sister Heart disease Myocardial infarction Surgical History H/O coronary artery bypass surgery (09/18/02) History of aortic valve replacement (03/03/19) History of coronary artery stent placement (12/31/18) History of hernia repair History of tonsillectomy Social History Smoking Status: Never smoker alcohol intake: never substance use type: does not use caffeine: No what type of physical activity do you participate in: walking frequency: daily ROS ROS ED Constitutional Constitutional ED: Denies chills or fever(s) Eyes Eyes: Denies change in vision or discharge from eye(s) ENT ENT ED: Denies discharge from eye(s), rhinorrhea or sore throat Cardiovascular Cardiovascular: Denies chest pain or palpitations Respiratory/Chest Respiratory/Chest: Denies cough or dyspnea Gastrointestinal Gastrointestinal: Reports abdominal pain, diarrhea, nausea and vomiting Genitourinary Genitourinary ED: Denies dysuria Musculoskeletal Musculoskeletal: Denies back pain or extremity pain Integumentary Denies Abrasions or rash Neurologic Neurologic: Denies headache(s) or weakness Psychiatric Psychiatric: Denies anxiety or depression Endocrine Endocrinology: Denies polydipsia or polyuria Allergic/Immunologic Allergic/Immunologic ED: Denies lip swelling or urticaria EXAM Physical Exam Const Vital Signs: 06/23/22 14:56 06/23/22 18:06 Temperature 97.8 F Temperature Source Temporal Pulse Rate 60 73 Respiratory Rate 16 18 Blood Pressure 124/71 H Blood Pressure Mean 88 Pulse Ox 99 93 Oxygen Delivery Method Room Air Room Air Positive well nourished and well developed General Appearance ED: well developed HEENT Reports normocephalic and head/scalp atraumatic Eyes PERRL and EOMs intact bilaterally Neck supple Chest Wall inspection of chest normal and palpation of chest normal Resp normal respiratory effort and clear to auscultation bilaterally Cardio regular rate and regular rhythm GI GI Narrative: Abdomen soft with no focal tenderness to palpation. Hypoactive but present bowel sounds are noted. Palpation: soft Extremity normal to inspection Neuro oriented x3 and no sensory deficits noted Sensorium / Orientation: alert Motor Exam: strength 5/5 throughout Psych mental status grossly normal Skin no rashes or lesions noted MDM MDM MDM Narrative Medical decision making narrative: Patient was given morphine and Zofran for pain. Labwork obtained to evaluate for leukocytosis, anemia, and electrolyte derangement. Urinalysis obtained to evaluate for hematuria/infection. CT abdomen pelvis with contrast obtained given his history of esophageal cancer and upper abdominal pain. History & Record Review Discussion w/independent historian: Patient Lab Data Attestation: I reviewed the patient's lab results. Labs: Laboratory Results - last 24 hr 06/23/22 06/23/22 06/23/22 16:09 16:09 16:09 WBC 9.5 RBC 5.00 Hgb 13.4 Hct 42.6 MCV 85.2 MCH 26.8 L MCHC 31.5 L RDW Std Deviation 44.3 H RDW Coeff of Marcos 14.4 Plt Count 173 MPV 9.8 Immature Gran % (Auto) 0.400 Neut % (Auto) 85.0 H Lymph % (Auto) 5.8 L [place] % (Auto) 8.1 Eos % (Auto) 0.4 Baso % (Auto) 0.3 Absolute Neuts (auto) 8.1 H Absolute Lymphs (auto) 0.55 L Nucleated RBC % 0 Differential Comment SCANNED Sodium 140 Potassium 4.6 Chloride 106 Carbon Dioxide 28.0 Anion Gap 6 BUN 18 Creatinine 1.69 H Estim Creat Clear Calc 43.20 Est GFR (MDRD) Af Amer 52 L Est GFR (MDRD) Non-Af 43 L BUN/Creatinine Ratio 10.7 Glucose 115 H Calcium 9.5 Total Bilirubin 1.10 H Direct Bilirubin 0.28 AST 19 ALT 36 Alkaline Phosphatase 113 Total Protein 7.2 Albumin 3.6 Globulin 3.6 Lipase 63 L Urine Color Urine Clarity Urine pH Ur Specific [place] Urine Protein Urine Glucose (UA) Urine Ketones Urine Occult Blood Urine Nitrite Urine Bilirubin Urine Urobilinogen Ur Leukocyte Esterase Urine RBC Urine WBC Ur Squamous Epith Cells Urine Bacteria Urine Mucus 06/23/22 16:40 WBC RBC Hgb Hct MCV MCH MCHC RDW Std Deviation RDW Coeff of Marcos Plt Count MPV Immature Gran % (Auto) Neut % (Auto) Lymph % (Auto) [place] % (Auto) Eos % (Auto) Baso % (Auto) Absolute Neuts (auto) Absolute Lymphs (auto) Nucleated RBC % Differential Comment Sodium Potassium Chloride Carbon Dioxide Anion Gap BUN Creatinine Estim Creat Clear Calc Est GFR (MDRD) Af Amer Est GFR (MDRD) Non-Af BUN/Creatinine Ratio Glucose Calcium Total Bilirubin Direct Bilirubin AST ALT Alkaline Phosphatase Total Protein Albumin Globulin Lipase Urine Color Yellow Urine Clarity Clear Urine pH 5.0 Ur Specific [place] 1.025 Urine Protein 15 H Urine Glucose (UA) Normal Urine Ketones 5 H Urine Occult Blood 25 H Urine Nitrite Negative Urine Bilirubin Negative Urine Urobilinogen Normal Ur Leukocyte Esterase 25 H Urine RBC 0 SEEN Urine WBC 0-5 SEEN Ur Squamous Epith Cells 0 SEEN Urine Bacteria 0 SEEN Urine Mucus 1+ Radiography Diagnostic Testing: Clinical Impression(s) from Imaging Studies Abdomen/Pelvis CT 06/23/22 16:23 IMPRESSION: (NOT LISTED IN ORDER OF SIGNIFICANCE) Moderate hydronephrosis caused by left mid 4.4 mm ureteral stone. Diffuse loculated bilateral pleural effusions. Other findings as above. Electronically Signed: Hemanth Anderson MD at 18:45 EDT Reading Location ID and State: [facility] [place] / [place] , Service support , Differential Diagnosis Abdominal Pain: Cholecystitis Reason(s) Cholecystitis less likely: NL Gall Bladder on imagng studies and Pancreatitis Reason(s) Pancreatitis less likely: NL lab values Treatment and Re-Evaluation :: CBC reveals white count of 9.5. Hemoglobin normal at 13.4. Chemistry studies reveal a BUN of 18 creatinine of 1.69. This creatinine appears near his baseline. LFTs largely unremarkable. Lipase normal at 63. Urinalysis reveals no sign of acute infection. [address] scan of the abdomen and pelvis with contrast is obtained and reveals moderate hydronephrosis with a 4.4 mm left ureteral stone. He does have loculated bilateral pleural effusions. I was able to review prior CT scans from [facility] and he has had stable pleural effusions that they have been monitoring. On repeat exam patient states his pain was worsening again. He was given another dose of morphine along with 15 mg of Toradol. At this time patient was able to sleep and is much more comfortable. We discussed appropriate treatment at home. He will be written for [place] and Zofran. He will take ibuprofen a few times a day. We will refer to urology for follow-up. Discharge Plan Triage Chief Complaint: Abd Pain ED Provider: Sue Roberts Dx/Rx/DC Orders Clinical Impression: Ureterolithiasis Instructions: ED Kidney Stone w/ Colic Prescriptions: New hydrocodone-acetaminophen 5-325 mg tablet 1 tab PO Q6H PRN PRN (Reason: Pain) 3 Days Qty: 10 0RF ondansetron 4 mg tablet,disintegrating 4 mg PO Q8H PRN PRN (Reason: Nausea) Qty: 10 0RF No Action amlodipine 10 mg tablet 10 mg PO DAILY Qty: 90 3RF atorvastatin 80 mg tablet 80 mg PO QHS Qty: 90 3RF ezetimibe 10 mg tablet 10 mg PO DAILY Qty: 90 3RF metoprolol tartrate 25 mg tablet 25 mg PO BID Qty: 180 3RF Rx Instructions: Hold for heart less than 60 or systolic blood pressure less than 100 mmHg. nitroglycerin 0.4 mg tablet, sublingual 0.4 mg SUBLINGUAL Q5M PRN (Reason: Chest Pain) Qty: 25 3RF aspirin 81 MG tablet,chewable 81 mg PO DAILY@0800 Label Comments: HEART/BLOOD THINNER pantoprazole [Protonix] 40 mg tablet,delayed release (DR/EC) 40 mg PO BID Primary Care Provider: Yaw Singh Referrals: Yaw Singh MD [Primary Care Provider] - Van Danielle MD [Med Staff - Active Staff] - 3-5 Days if not improving Disposition Disposition: Home, Self Care
[2022-06-23 16:31] LABS: Anion Gap 6 (5-15); BUN 18 mg/dL (7-18); BUN/Creat Ratio 10.7 RATIO (10-20); Calcium,Total 9.5 mg/dL (8.5-10.1); Chloride 106 mmol/L (98-107); Creatinine, Serum 1.69 mg/dL (0.70-1.30); EST Glomerular Filtration Rate 43 mL/min (>60); Est Glom Filt Rate - Afr Amer 52 mL/min (>60); Glucose 115 mg/dL (74-106); Potassium 4.6 mmol/L (3.5-5.1); Sodium Level 140 mmol/L (136-145)
[2022-06-23] MEDS: Ondansetron 4 MG/2 ML Vial IV (16:38)
[2022-06-23] MEDS: Morphine 4 MG/ML Syringe IV ×2 (16:38→19:19)
[2022-06-23] MEDS: 0.9% Normal Saline 1,000 ML 150 ML IV ×2 (16:38→19:22)
[2022-06-23 16:46] LABS: Bacteria 0 SEEN /hpf (None Seen); Red Blood Cells-Urine 0 SEEN /hpf (0-5); Squamous Epithelial Cells - UA 0 SEEN /hpf (0-5)
[2022-06-23 16:52] LABS: Differential Comment SCANNED
[2022-06-23 16:55] LABS: AST(SGOT) 19 U/L (15-37); Alanine Aminotransfer ALT/SGPT 36 U/L (16-61); Albumin, Serum 3.6 g/dL (3.2-5.0); Alkaline Phosphatase 113 U/L (45-117); Bilirubin, Direct 0.28 mg/dL (0.00-0.30); Globulin 3.6 g/dL (2.2-4.2); Lipase 63 U/L (73-393); Protein, Total 7.2 g/dL (6.4-8.2)
[2022-06-23 17:12] LABS: Color, Urine Yellow (Yellow); Glucose, Dipstick Normal (Normal); Ketone-Dipstick 5 mg/dl (Negative); Leukocyte Esterase-Dipstick 25 /ul (Negative); Nitrite-Dipstick Negative (Negative); Occult Blood-Urine 25 /ul (Negative); Protein-Dipstick 15 mg/dl (Negative); Specific Gravity, Urine 1.025 (1.002-1.030); Urine Bilirubin Dipstick Negative (Negative); Urine Clarity Clear (Clear); Urine Urobilinogen Normal (Normal)
[2022-06-23 17:24] LABS: Mucous, Urine 1+ /hpf (<or=2+); White Blood Cells 0-5 SEEN /hpf (0-5)
[2022-06-23 18:06] VITALS: PULSE 73; RESP 18; O2SAT 93
[2022-06-23] MEDS: Ketorolac 15 MG/ML Vial IV (19:20)
== END 2022-06-23 20:45 | disposition home or self-care (01) ==
PROVIDERS: Emergency Provider Emergency Medicine; PCP Family Medicine; Visit Provider Emergency Medicine
DX: N13.2 Hydronephrosis with renal and ureteral calculous obstruction (principal); I10 Essential (primary) hypertension; I25.10 Atherosclerotic heart disease of native coronary artery without angina pectoris; Z95.1 Presence of aortocoronary bypass graft; Z95.5 Presence of coronary angioplasty implant and graft; Z95.4 Presence of other heart-valve replacement; Z90.3 Acquired absence of stomach [part of]; Z90.49 Acquired absence of other specified parts of digestive tract; Z79.82 Long term (current) use of aspirin; Z79.899 Other long term (current) drug therapy; Z85.01 Personal history of malignant neoplasm of esophagus
CPT/HCPCS: 74177; 80048; 80076; 81001; 83690; 85025; 96374; 96375; 96376; 99283; J7030; Q9967; A4216; J2405

== ENCOUNTER → 2022-07-24 | Outpatient (CLI) | payer MEDICARE, OTHER, SELFPAY ==
--- NOTE | 2022-07-24 12:16 | RAD_ITS ---
STUDY: X-RAY - ABDOMEN/PELVIS REASON FOR EXAM: Male, 67 years old. Ureteric calculus. TECHNIQUE: Single AP view of the abdomen / pelvis on 3 images. COMPARISON: CT of the abdomen and pelvis dated June 23, 2022. FINDINGS: Normal visualized lung bases. Normal bowel gas pattern with air seen to the rectum with no disproportionate dilatation of bowel. There is no demonstrated free abdominal air. 2 mm in diameter calcification projected over the lower pole of the left kidney. Phleboliths in pelvis. Osteopenia with osteoarthritic changes of both hips. RAD/Abdomen Single View IMPRESSION: 2 mm in diameter calcification projected over the lower pole of the left kidney. No other abnormality. Electronically Signed: Antonio Jamison, at 14:22 EDT ,
[2022-07-24 13:05] LABS: Anion Gap 3 (5-15); BUN 14 mg/dL (7-18); Calcium,Total 8.7 mg/dL (8.5-10.1); Chloride 108 mmol/L (98-107); EST Glomerular Filtration Rate 79 mL/min (>60); Est Glom Filt Rate - Afr Amer 96 mL/min (>60); Glucose 97 mg/dL (74-106); PSA,Total- Diagnostic 2.19 ng/mL (0.0-4.0); Potassium 3.9 mmol/L (3.5-5.1); Sodium Level 138 mmol/L (136-145)
== END | disposition home or self-care (01) ==
PROVIDERS: PCP Family Medicine; Referring Provider Urology; Visit Provider Urology
DX: N20.1 Calculus of ureter (principal); N18.2 Chronic kidney disease, stage 2 (mild); Z12.5 Encounter for screening for malignant neoplasm of prostate
CPT/HCPCS: 36415; 74018; 80048; 84153

== ENCOUNTER → 2022-11-15 | Outpatient (CLI) | payer MEDICARE, OTHER, SELFPAY ==
[2022-11-15 08:47] LABS: AST(SGOT) 15 U/L (15-37); Alanine Aminotransfer ALT/SGPT 21 U/L (16-61); Albumin, Serum 3.3 g/dL (3.2-5.0); Alkaline Phosphatase 89 U/L (45-117); Bilirubin, Direct 0.18 mg/dL (0.00-0.30); Cholesterol 174 mg/dL (200); Globulin 3.6 g/dL (2.2-4.2); High Density Lipoprotein 53 mg/dL; Protein, Total 6.9 g/dL (6.4-8.2); Triglycerides 85 mg/dL; Very Low Density Lipoprotein 17 mg/dL (5-40)
== END | disposition home or self-care (01) ==
LOC: LAB 07:49
PROVIDERS: PCP Family Medicine; Referring Provider Nurse Practitioner Family; Visit Provider Nurse Practitioner Family
DX: E78.5 Hyperlipidemia, unspecified (principal); I25.810 Atherosclerosis of coronary artery bypass graft(s) without angina pectoris; I25.10 Atherosclerotic heart disease of native coronary artery without angina pectoris; Z95.1 Presence of aortocoronary bypass graft
CPT/HCPCS: 36415; 80061; 80076

== ENCOUNTER 2023-09-11 04:39 | Emergency (ER) | payer MEDICARE, OTHER, SELFPAY ==
[2023-09-11 04:39] VITALS: BP 146/86; PULSE 64; RESP 18; TEMP 36.1; O2SAT 98; BMI 27.8
--- NOTE | 2023-09-11 05:06 | CT_ITS ---
EXAM: CT ABDOMEN AND PELVIS WITH INTRAVENOUS CONTRAST CLINICAL INDICATION: LLQ pain/tend TECHNIQUE: Helically acquired images were obtained of the abdomen and pelvis with intravenous contrast. This CT exam was performed using one or more of the following dose reduction techniques: automated exposure control, adjustment of the mA and/or kV according to patient size, and/or use of iterative reconstruction technique. CONTRAST: IV 100mL Isovue-370 RADIATION DOSE: CTDIvol = 18.43 mGy, DLP = 1432.21 mGy-cm. COMPARISON: No relevant prior studies available. FINDINGS: LOWER THORAX: Moderate bilateral pleural effusions, with slight enhancing pleural margins, and large apparent hiatal hernia with moderate distention with fluid and gas, similar to prior exam. Aortic valve prosthesis and extensive coronary artery calcifications and stents are similar to prior exam. Multiple calcified lymph nodes in the right infrahilar region. No cardiomegaly. ABDOMEN: LIVER: Unremarkable. Homogeneous. No focal mass. GALLBLADDER AND BILE DUCTS: Unremarkable. No calcified gallstones. No gallbladder distention or wall edema. No intra- or extrahepatic biliary ductal dilation. PANCREAS: Unremarkable. No focal cystic or solid mass. SPLEEN: Multiple small calcified granulomas in the spleen. ADRENALS: Unremarkable. No nodules. KIDNEYS AND URETERS: There is mild left hydroureteronephrosis to the level of a 6 mm x 5 mm stone in the distal left ureter, roughly 2 cm proximal to the left UVJ. Mid left ureter 8 mm, left renal pelvis 1.8 cm AP. Nonobstructing 6 mm stone in the left kidney. At least 4 nonobstructing stones in the right kidney and 1.5 cm right renal cyst. Normal renal size and position. STOMACH AND BOWEL: Mild-moderate stool in the proximal half of the colon. Moderate diverticulosis of the distal transverse colon and mid to distal descending and proximal sigmoid colon. No evidence of acute diverticulitis. No dilated small bowel loops. PELVIS: APPENDIX: No evidence of acute appendicitis. BLADDER: Unremarkable. REPRODUCTIVE: Prostatomegaly, at least 5.2 cm x 5.2 cm x 5.6 cm. ABDOMEN and PELVIS: INTRAPERITONEAL SPACE: Unremarkable. No ascites or other fluid collection. No free air. BONES/JOINTS: Mild increased compression deformities with upper body sclerosis at T9 and T10 compared to June 23, 2022, with no visible lucent fracture line, likely subacute-chronic. SOFT TISSUES: Postoperative changes of right inguinal hernia repair. VASCULATURE: Moderate calcification and roughly 50% suspected stenosis at the proximal celiac axis and mild narrowing of the SMA. Abdominal aorta is non-dilated. LYMPH NODES: See above. CT/Abdomen/Pelvis W IV Cont ONLY IMPRESSION: 1. Bilateral nephrolithiasis. Mild left hydroureteronephrosis to the level of a 6 x 5 mm stone in the distal third of the left ureter. Probably multiple additional small stones in the bladder. 2. No other obviously acute findings. Prominent pleural effusions, large hiatal hernia, aortic valve prosthesis, diverticulosis, prostatomegaly, right inguinal hernia repair. Mild increased compression deformity and sclerosis of T9 and T10. Electronically Signed: Maegan Gamble MD at 7:07 EDT ,
--- NOTE | 2023-09-11 05:07 | EDS_ITS ---
HPI HPI - GI History of Present Illness Chief Complaint: Abd Pain Informant: patient Narrative Narrative: Patient was awake and a couple hours ago by severe left sided colicky abdominal discomfort associated with nausea and vomiting. He states it felt like something popped or burst in that area. Occasional radiation into the back but for the most part is in his left side of his abdomen. States he remembers having a kidney stone before and unsure if this feels similar or not. No symptoms when he went to bed last night. No associated diarrhea, bright red blood per rectum, or urinary symptoms. Has a history of esophageal cancer and had a major surgery on his stomach and esophagus as a result of that. This was remote. 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 Essential (primary) hypertension Non-rheumatic aortic stenosis Syncope and collapse Hyperlipidemia Atherosclerotic heart disease of [place] coronary artery with other forms of angina pectoris Encounter for long-term current use of high risk medication abnormal stress test Angina pectoris Exertional chest pain URI (upper respiratory infection) Home Medications ?Medication ?Instructions ?Recorded ?Last Taken ?Type aspirin 81 mg chewable tablet 81 mg PO DAILY@0800 HEALTH 01/23/14 1 Week Ago History ~03/17/21 pantoprazole 40 mg tablet,delayed 40 mg PO BID GERD 03/24/21 03/24/21 History release (Protonix) amlodipine 10 mg tablet 10 mg PO DAILY BP #90 tabs 05/15/22 Unknown Rx atorvastatin 80 mg tablet 80 mg PO QHS CHOLESTEROL #90 tabs 05/15/22 Unknown Rx ezetimibe 10 mg tablet 10 mg PO DAILY CHOLESTEROL #90 tabs 05/15/22 Unknown Rx metoprolol tartrate 25 mg tablet 25 mg PO BID HEART #180 tabs 05/15/22 Unknown Rx nitroglycerin 0.4 mg sublingual 0.4 mg sublingual Q5M PRN Chest 05/15/22 Unknown Rx tablet Pain #25 tabs furosemide 20 mg tablet 20 mg PO DAILY #14 tabs 09/11/23 Unknown Rx hydrocodone-acetaminophen 5-325mg 1 tab PO Q4H PRN PRN Pain 4 days 09/11/23 Un known Rx 5mg-325mg #20 TABLETS nystatin 100,000 unit/gram topical 1 applic topical BID right chest 09/11/23 Unknown History cream ondansetron HCl 8 mg tablet 8 mg PO Q8H PRN PRN nausea/vomiting 09/11/23 Unknown History potassium chloride 20 mEq 20 meq PO BID #20 tabs 09/11/23 Unknown Rx tablet,extended release Allergy/AdvReac Type Severity Reaction Status Date / Time Environmental Allergies: Allergy Itching Verified 09/11/23 04:42 Uncoded Family History Father Heart disease Myocardial infarction Hypertension Brother Hypertension Sister Heart disease Myocardial infarction Surgical History History of aortic valve replacement (03/03/19) History of coronary artery stent placement (12/31/18) H/O coronary artery bypass surgery (09/18/02) History of tonsillectomy History of hernia repair Social History Smoking Status: Never smoker alcohol intake: never substance use type: does not use caffeine: No what type of physical activity do you participate in: walking frequency: daily ROS ROS ED Constitutional Constitutional ED: Denies chills or fever(s) Eyes Eyes: Denies change in vision or diplopia ENT ENT ED: Denies rhinorrhea or sore throat Cardiovascular Cardiovascular: Denies chest pain or palpitations Respiratory/Chest Respiratory/Chest: Denies cough or dyspnea Gastrointestinal Gastrointestinal: Reports abdominal pain, nausea and vomiting; Denies diarrhea Genitourinary Genitourinary ED: Denies dysuria or hematuria Musculoskeletal Musculoskeletal: Reports back pain; Denies neck pain Integumentary Denies abscess or rash Neurologic Neurologic: Denies headache(s), paresthesias or weakness Psychiatric Psychiatric: Denies anxiety or suicidal thoughts EXAM Physical Exam Const Vital Signs: 09/11/23 04:39 09/11/23 05:15 Temperature 96.9 F L Temperature Source Temporal Pulse Rate 64 60 Respiratory Rate 18 12 Blood Pressure 146/86 H 152/81 H Blood Pressure Mean 106 104 Pulse Ox 98 97 Oxygen Delivery Method Room Air Positive well nourished and well developed General Appearance ED: well developed and NAD HEENT Reports moist mucous membranes normocephalic and atraumatic Eyes PERRL and EOMs intact bilaterally Neck full ROM and supple Resp normal respiratory effort and clear to auscultation bilaterally Cardio regular rate, regular rhythm and no murmurs Cardio Narrative: Equal bilateral posterior tibial pulses 2+/4 GI non-distended GI Narrative: Tender left lower quadrant more than the left upper quadrant and epigastrium with some mild involuntary guarding. No rebound tenderness. No pulsatile mass palpable. Auscultation: normoactive bowel sounds Palpation: soft Back/Spine no CVA tenderness Back/Spine Narrative: No [place] sign General Back: other FROM Extremity normal to inspection General Extremety ED: Negative for edema, pulses abnormal or tenderness General Extremity: Negative for edema or pulses abnormal Neuro oriented x3, CN's II-XII intact bilaterally and no sensory deficits noted Sensorium / Orientation: awake and alert Motor Exam: strength 5/5 throughout Skin no rashes or lesions noted and no wounds MDM MDM MDM Narrative Medical decision making narrative: Differential includes diverticulitis, kidney stone, ruptured AAA. The patient go stat to CT, I reviewed the images and report which I agree with, it shows a mid left ureteral stone 6 mm x 5 mm, along with a couple of small stones in the bladder like he might of passed those recently. When I discussed these with him, he said he was going to the bathroom multiple times [id number] for like he needed to go but could not, these certainly could have been UVJ stones given him that sensation. He has some mild left hydroureteronephrosis right now, the urinalysis shows no signs of infection just microscopic hematuria as I would expect, and he does not have a significant leukocytosis and his pain is well- controlled. He was given a dose of morphine, his pain came back but then was more colicky and he felt like the pain was completely gone when I reexamined him. I had him get a dose of Toradol 15 mg anyhow, I think expectant management is reasonable here, given a prescription for pain medication he already has something for nausea and urology to follow-up with we discussed reasons to return to the ER especially intractable symptoms. Additionally, it is noted on the CT that the patient has bilateral pleural effusions. I discussed this with him, he has been having dyspnea with exertion for 2 or 3 months. He states he was not thinking very much about it. No exertional chest discomfort. He has cardiac stents and a bypass and he had an aortic valve replacement. He does not follow with cardiothoracic surgery but he does follow with cardiology here Dr. Noland. He is not hypoxic or in respiratory distress now, nor has he been with exertion. For now I am going to put him on 10 days of once daily Lasix to try to help mitigate this worsening, along with twice daily potassium supplementation to prevent hypokalemia, and encouraged him to follow-up with cardiology and his PCP. Lab Data Attestation: I reviewed the patient's lab results. Labs: Laboratory Results - last 24 hr 09/11/23 04:44 WBC 7.7 RBC 5.13 Hgb 13.6 Hct 43.8 MCV 85.4 MCH 26.5 L MCHC 31.1 L RDW Std Deviation 45.5 H RDW Coeff of Marcos 14.6 Plt Count 155 MPV 9.5 Immature Gran % (Auto) 0.400 Neut % (Auto) 83.9 H Lymph % (Auto) 7.7 L Baker % (Auto) 6.6 Eos % (Auto) 0.9 Baso % (Auto) 0.5 Absolute Neuts (auto) 6.5 Absolute Lymphs (auto) 0.59 L Nucleated RBC % 0 Sodium 139 Potassium 3.7 Chloride 107 Carbon Dioxide 26.0 Anion Gap 6 BUN 17 Creatinine 1.30 Estim Creat Clear Calc 59.92 Est GFR (MDRD) Af Amer 70 Est GFR (MDRD) Non-Af 58 L BUN/Creatinine Ratio 13.1 Glucose 121 H Calcium 9.2 Total Bilirubin 0.70 AST 16 ALT 24 Alkaline Phosphatase 94 Total Protein 7.4 Albumin 3.6 Globulin 3.8 Albumin/Globulin Ratio 0.9 Lipase 29 Radiography Diagnostic Testing: Clinical Impression(s) from Imaging Studies Abdomen/Pelvis CT 09/11/23 05:06 IMPRESSION: 1. Bilateral nephrolithiasis. Mild left hydroureteronephrosis to the level of a 6 x 5 mm stone in the distal third of the left ureter. Probably multiple additional small stones in the bladder. 2. No other obviously acute findings. Prominent pleural effusions, large hiatal hernia, aortic valve prosthesis, diverticulosis, prostatomegaly, right inguinal hernia repair. Mild increased compression deformity and sclerosis of T9 and T10. Electronically Signed: Maegan Gamble MD at 7:07 EDT , Discharge Plan Triage Chief Complaint: Abd Pain ED Provider: Karthik Ko Dx/Rx/DC Orders Clinical Impression: Colic, ureteral, Ureterolithiasis, Bilateral pleural effusion Instructions: ED Pleural Effusion, ED Kidney Stone with Pain Prescriptions: New hydrocodone-acetaminophen 5-325 mg tablet 1 tab PO Q4H PRN PRN (Reason: Pain) 4 Days Qty: 20 0RF furosemide 20 mg tablet 20 mg PO DAILY Qty: 14 0RF potassium chloride 20 mEq tablet extended release 20 meq PO BID Qty: 20 0RF No Action amlodipine 10 mg tablet 10 mg PO DAILY Qty: 90 3RF atorvastatin 80 mg tablet 80 mg PO QHS Qty: 90 3RF ezetimibe 10 mg tablet 10 mg PO DAILY Qty: 90 3RF metoprolol tartrate 25 mg tablet 25 mg PO BID Qty: 180 3RF Rx Instructions: Hold for heart less than 60 or systolic blood pressure less than 100 mmHg. nitroglycerin 0.4 mg tablet, sublingual 0.4 mg SUBLINGUAL Q5M PRN (Reason: Chest Pain) Qty: 25 3RF aspirin 81 MG tablet,chewable 81 mg PO DAILY@0800 Patient Comments: HEART/BLOOD THINNER pantoprazole [Protonix] 40 mg tablet,delayed release (DR/EC) 40 mg PO BID nystatin 100,000 unit/gram cream 1 applic topical BID ondansetron HCl 8 mg tablet 8 mg PO Q8H PRN PRN (Reason: nausea/vomiting) Primary Care Provider: Yaw Singh Referrals: Haroldo Noland MD [Med Staff - Active Staff] - As soon as possible Yaw Singh MD [Primary Care Provider] - As soon as possible Van Danielle MD [Med Staff - Active Staff] - 1 Week if not improving Print Language: Welsh Disposition Disposition: Home, Self Care
[2023-09-11] MEDS: 0.9% Normal Saline (1000mL) 1,000 ML 125 ML IV (05:12)
[2023-09-11 05:15] VITALS: BP 152/81; PULSE 60; RESP 12; O2SAT 97
[2023-09-11 05:15] LABS: Absolute Lymphocyte Count 0.59 X10^3/uL (0.83-4.51); Absolute Neutrophil Count 6.5 X10^3/uL (2.0-7.7); Basophil# 0.04 X10^3/uL; Basophil% 0.5 % (0-1); Eosinophil# 0.07 X10^3/uL; Eosinophils% 0.9 % (0-5); Hematocrit 43.8 % (40-54); Hemoglobin 13.6 g/dL (13.0-16.5); Lymphocyte # 0.59 X10^3/ul (0.83-4.51); Lymphocyte % 7.7 % (19-41); Mean Corp Hgb Conc 31.1 g/dL (32-36); Mean Corpuscular Hgb 26.5 pg (27.0-32.0); Mean Corpuscular Volume 85.4 fL (80-94); Mean Platelet Vol. 9.5 fl (6.2-12.0); Monocyte# 0.51 X10^3/uL; Monocyte% 6.6 % (0-10); NRBC Flagged by Analyzer 0 % (0-5); Neutrophil # 6.45 X10^3/uL (2.7-7.7); Neutrophil % 83.9 % (47-70); POSITIVE DIFFERENTIAL YES; Platelet Count 155 K/mm3 (150-450); RBC Distribution Width CV 14.6 % (11.6-14.6); RBC Distribution Width SD 45.5 fl (35.1-43.9); Red Blood Count 5.13 M/mm3 (4.6-6.2); White Blood Count 7.7 K/mm3 (4.4-11.0)
[2023-09-11] MEDS: Morphine 4 MG/ML Syringe IV (05:15)
[2023-09-11] MEDS: Ondansetron 4 MG/2 ML Vial IV (05:15)
[2023-09-11 05:39] LABS: ALB/GLOB Ratio 0.9 RATIO (0.9-2.4); AST(SGOT) 16 U/L (15-37); Alanine Aminotransfer ALT/SGPT 24 U/L (16-61); Albumin, Serum 3.6 g/dL (3.2-5.0); Alkaline Phosphatase 94 U/L (45-117); Anion Gap 6 (5-15); BUN 17 mg/dL (7-18); BUN/Creat Ratio 13.1 RATIO (10-20); Calcium,Total 9.2 mg/dL (8.5-10.1); Chloride 107 mmol/L (98-107); EST Glomerular Filtration Rate 58 mL/min (>60); Est Glom Filt Rate - Afr Amer 70 mL/min (>60); Estimated Creatinine Clearance 59.92 ml/min; Globulin 3.8 g/dL (2.2-4.2); Glucose 121 mg/dL (74-106); Lipase 29 U/L (13-75); Potassium 3.7 mmol/L (3.5-5.1); Protein, Total 7.4 g/dL (6.4-8.2); Sodium Level 139 mmol/L (136-145)
[2023-09-11 06:23] LABS: Mucous, Urine 0 SEEN /hpf (<or=2+)
[2023-09-11 06:26] LABS: Color, Urine Yellow (Yellow); Glucose, Dipstick Normal (Normal); Ketone-Dipstick Negative (Negative); Leukocyte Esterase-Dipstick Negative /ul (Negative); Nitrite-Dipstick Negative (Negative); Occult Blood-Urine 250 /ul (Negative); Protein-Dipstick 15 mg/dl (Negative); Urine Bilirubin Dipstick Negative (Negative); Urine Clarity Clear (Clear); Urine Urobilinogen Normal (Normal)
[2023-09-11 07:00] VITALS: BP 134/83; PULSE 69; RESP 19; O2SAT 97
[2023-09-11 07:25] LABS: Red Blood Cells-Urine 50-100 SEEN /hpf (0-5)
[2023-09-11 07:26] LABS: Bacteria RARE /hpf (None Seen); Squamous Epithelial Cells - UA 0-5 SEEN /hpf (0-5); White Blood Cells 0-5 SEEN /hpf (0-5)
[2023-09-11 07:46] VITALS: BP 134/83; PULSE 68; RESP 18; TEMP 36.6; O2SAT 98
== END 2023-09-11 07:50 | disposition home or self-care (01) ==
PROVIDERS: Emergency Provider Emergency Medicine; PCP Family Medicine; Visit Provider Emergency Medicine
DX: N13.2 Hydronephrosis with renal and ureteral calculous obstruction (principal); J90 Pleural effusion, not elsewhere classified; R11.2 Nausea with vomiting, unspecified; Z95.1 Presence of aortocoronary bypass graft; Z95.5 Presence of coronary angioplasty implant and graft; R31.29 Other microscopic hematuria
CPT/HCPCS: 74177; 80053; 81001; 83690; 85025; 96361; 96374; 96375; 99282; J7030; Q9967; A4216; J2405

== ENCOUNTER 2023-10-11 17:21 | Emergency (ER) | payer MEDICARE, OTHER, SELFPAY ==
[2023-10-11 17:22] VITALS: BP 118/76; PULSE 123; RESP 18; TEMP 36.5; O2SAT 94
--- NOTE | 2023-10-11 17:51 | EDS_ITS ---
HPI <SHEILA Tilley - Last Filed: 10/11/23 21:08> History of Present Illness Chief Complaint: Flank Pain Narrative Narrative: Patient presenting today due to pain across his lower back that does radiate to his groin that started yesterday. He reports that the pain is intermittent. He does have a history of kidney stones and thinks that this feels similar. He did have a few episodes of nausea and vomiting earlier today. He has noticed that his urine has been a dark orange color, he denies dysuria or increased urinary frequency. He felt feverish today. He has a remote history of esophageal cancer as well as a previous CABG and hypertension. [facility] <SHEILA Tilley - Last Filed: 10/11/23 21:08> [facility] Medical History Adenocarcinoma of esophagus LEELA (acute kidney injury) Non-smoker Esophageal carcinoma Atherosclerosis of coronary artery of enterprise heart without angina pectoris 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 Essential (primary) hypertension Non-rheumatic aortic stenosis Syncope and collapse Hyperlipidemia Atherosclerotic heart disease of enterprise coronary artery with other forms of angina pectoris Encounter for long-term current use of high risk medication abnormal stress test Angina pectoris Exertional chest pain URI (upper respiratory infection) Home Medications ?Medication ?Instructions ?Recorded ?Last Taken ?Type aspirin 81 mg chewable tablet 81 mg PO DAILY@0800 HEALTH 01/23/14 1 Week Ago History ~03/17/21 pantoprazole 40 mg tablet,delayed 40 mg PO BID GERD 03/24/21 03/24/21 History release (Protonix) amlodipine 10 mg tablet 10 mg PO DAILY BP #90 tabs 05/15/22 Unknown Rx atorvastatin 80 mg tablet 80 mg PO QHS CHOLESTEROL #90 tabs 05/15/22 Unknown Rx ezetimibe 10 mg tablet 10 mg PO DAILY CHOLESTEROL #90 tabs 05/15/22 Unknown Rx metoprolol tartrate 25 mg tablet 25 mg PO BID HEART #180 tabs 05/15/22 Unknown Rx nitroglycerin 0.4 mg sublingual 0.4 mg sublingual Q5M PRN Chest 05/15/22 Unknown Rx tablet Pain #25 tabs furosemide 20 mg tablet 20 mg PO DAILY #14 tabs 09/11/23 Unknown Rx hydrocodone-acetaminophen 5-325mg 1 tab PO Q4H PRN PRN Pain 4 days 09/11/23 Unknown Rx 5mg-325mg #20 TABLETS nystatin 100,000 unit/gram topical 1 applic topical BID right chest 09/11/23 Unknown History cream ondansetron HCl 8 mg tablet 8 mg PO Q8H PRN PRN nausea/vomiting 09/11/23 Unknown History potassium chloride 20 mEq 20 meq PO BID #20 tabs 09/11/23 Unknown Rx tablet,extended release hydrocodone-acetaminophen 5-325mg 1 tab PO Q4H PRN PRN Pain 3 days 10/11/23 Unkn own Rx 5mg-325mg #10 TABLETS ondansetron 4 mg disintegrating 4 mg PO Q8H PRN PRN Nausea #10 tabs 10/11/23 Unknown Rx tablet Allergy/AdvReac Type Severity Reaction Status Date / Time No Known Allergies Allergy Verified 10/11/23 17:22 Family History Father Heart disease Myocardial infarction Hypertension Brother Hypertension Sister Heart disease Myocardial infarction Surgical History History of aortic valve replacement (03/03/19) History of coronary artery stent placement (12/31/18) H/O coronary artery bypass surgery (09/18/02) History of tonsillectomy History of hernia repair Social History Smoking Status: Never smoker alcohol intake: never substance use type: does not use caffeine: No what type of physical activity do you participate in: walking frequency: daily ROS <SHEILA Tilley - Last Filed: 10/11/23 21:08> ROS ED Constitutional Constitutional ED: Reports fever(s) and subjective Cardiovascular Cardiovascular: Denies chest pain Respiratory/Chest Respiratory/Chest: Denies cough or dyspnea Gastrointestinal Gastrointestinal: Reports nausea and vomiting; Denies abdominal pain or diarrhea Genitourinary Genitourinary ED: Reports hematuria; Denies dysuria or urinary frequency Musculoskeletal Musculoskeletal: Reports back pain Integumentary Denies rash Neurologic Neurologic: Denies weakness EXAM <SHEILA Tilley - Last Filed: 10/11/23 21:08> Physical Exam Const Vital Signs: 10/11/23 17:22 10/11/23 19:21 Temperature 97.7 F L Temperature Source Temporal Pulse Rate 123 H 75 Respiratory Rate 18 16 Blood Pressure 118/76 Blood Pressure Mean 90 Pulse Ox 94 98 Oxygen Delivery Method Room Air Room Air Positive well nourished, well developed and no apparent distress General Appearance ED: well developed HEENT Reports normocephalic and head/scalp atraumatic Mouth ED: Yes moist mucous membranes normal Eyes PERRL and EOMs intact bilaterally Neck full ROM and supple Chest Wall inspection of chest normal Resp normal respiratory effort and clear to auscultation bilaterally Cardio regular rate and regular rhythm GI soft to palpation, non-tender, non-distended and no masses Palpation: Negative for guarding Back/Spine normal ROM and normal to inspection General Back: Negative for CVA tenderness Extremity normal to inspection and full ROM Neuro oriented x3, CN's II-XII intact bilaterally, moves all extremities, no focal motor deficits and no sensory deficits noted Sensorium / Orientation: awake and alert Psych mental status grossly normal and thought process normal Skin no rashes or lesions noted and no wounds <Dr. Antonio Kemp DO - Last Filed: 10/11/23 20:54> Physical Exam Const Vital Signs: 10/11/23 17:22 10/11/23 19:21 Temperature 97.7 F L Temperature Source Temporal Pulse Rate 123 H 75 Respiratory Rate 18 16 Blood Pressure 118/76 Blood Pressure Mean 90 Pulse Ox 94 98 Oxygen Delivery Method Room Air Room Air [facility] <SHEILA Tilley - Last Filed: 10/11/23 21:08> [facility] Narrative Medical decision making narrative: Patient presenting today with pain across his lower back and hematuria that started yesterday. He has a history of kidney stones, he thinks that this feels similar. His abdomen is soft and nontender on exam. He is tachycardic but afebrile, labs will be obtained to assess for leukocytosis, anemia, electrolyte abnormality, LEELA, and UTI. He was given IV fluids, Zofran, and morphine. CBC shows a platelet count of 74 which is lower than his previous visit. Sodium is 133, creatinine 1.51, BUN 23. UA shows hematuria without any signs of infection. CT scan of the abdomen and pelvis without contrast was obtained to rule out kidney stone and is negative for any acute findings. The attending ED physician reviewed this CAT scan and questions that there may be a small punctate stone in the right distal ureter. On examination he reports improvement of his pain. He will be given a few days of [place] and Zofran. I have given him a urology referral. I encouraged that he follow-up with his PCP to have his platelet level rechecked and followed up on. Return instructions were discussed and patient discharged home in stable condition. Lab Data Labs: Laboratory Results - last 24 hr 10/11/23 10/11/23 18:03 18:55 WBC 10.1 RBC 4.92 Hgb 13.4 Hct 41.3 MCV 83.9 MCH 27.2 MCHC 32.4 RDW Std Deviation 44.8 H RDW Coeff of Marcos 14.6 Plt Count 74 L MPV 9.9 Immature Gran % (Auto) 0.900 Neut % (Auto) 93.3 H Lymph % (Auto) 1.4 L Hughes % (Auto) 2.6 Eos % (Auto) 1.4 Baso % (Auto) 0.4 Absolute Neuts (auto) 9.4 H Absolute Lymphs (auto) 0.14 L Nucleated RBC % 0 Platelet Estimate MOD DEC Plt Morphology Comment LARGE Sodium 133 L Potassium 3.9 Chloride 101 Carbon Dioxide 21.0 Anion Gap 11 BUN 23 H Creatinine 1.51 H Est GFR (MDRD) Af Amer 59 L Est GFR (MDRD) Non-Af 49 L BUN/Creatinine Ratio 15.2 Glucose 134 H Calcium 8.8 Urine Color Luly Urine Clarity Cloudy Urine pH 5.0 Ur Specific Causey 1.020 Urine Protein 100 H Urine Glucose (UA) Normal Urine Ketones 5 H Urine Occult Blood 150 H Urine Nitrite Negative Urine Bilirubin 1 H Urine Urobilinogen 1 H Ur Leukocyte Esterase 25 H Urine RBC 10-25 SEEN Urine WBC 0-5 SEEN Ur Squamous Epith Cells 0-5 SEEN Amorphous Sediment 2+ URATE Urine Bacteria 0 SEEN Fine Granular Casts 5-10 SEEN RBC Casts 0-5 SEEN Urine Mucus 0 SEEN Radiography Diagnostic Testing: Clinical Impression(s) from Imaging Studies Abdomen/Pelvis CT 10/11/23 19:52 IMPRESSION: Large hiatal hernia. No other acute abnormalities are identified. Electronically Signed: Addi Justice MD at 20:37 EDT , EKG Initial EKG: Comments: 111 bpm, sinus tachycardia, no ST elevation, reviewed and interpreted by attending ED physician <Dr. Antonio Kemp DO - Last Filed: 10/11/23 20:54> MDM History & Record Review Discussion w/independent historian: Patient and Family Lab Data Attestation: I reviewed the patient's lab results. Labs: Laboratory Results - last 24 hr 10/11/23 10/11/23 18:03 18:55 WBC 10.1 RBC 4.92 Hgb 13.4 Hct 41.3 MCV 83.9 MCH 27.2 MCHC 32.4 RDW Std Deviation 44.8 H RDW Coeff of Marcos 14.6 Plt Count 74 L MPV 9.9 Immature Gran % (Auto) 0.900 Neut % (Auto) 93.3 H Lymph % (Auto) 1.4 L Hughes % (Auto) 2.6 Eos % (Auto) 1.4 Baso % (Auto) 0.4 Absolute Neuts (auto) 9.4 H Absolute Lymphs (auto) 0.14 L Nucleated RBC % 0 Platelet Estimate MOD DEC Plt Morphology Comment LARGE Sodium 133 L Potassium 3.9 Chloride 101 Carbon Dioxide 21.0 Anion Gap 11 BUN 23 H Creatinine 1.51 H Est GFR (MDRD) Af Amer 59 L Est GFR (MDRD) Non-Af 49 L BUN/Creatinine Ratio 15.2 Glucose 134 H Calcium 8.8 Urine Color Luly Urine Clarity Cloudy Urine pH 5.0 Ur Specific Causey 1.020 Urine Protein 100 H Urine Glucose (UA) Normal Urine Ketones 5 H Urine Occult Blood 150 H Urine Nitrite Negative Urine Bilirubin 1 H Urine Urobilinogen 1 H Ur Leukocyte Esterase 25 H Urine RBC 10-25 SEEN Urine WBC 0-5 SEEN Ur Squamous Epith Cells 0-5 SEEN Amorphous Sediment 2+ URATE Urine Bacteria 0 SEEN Fine Granular Casts 5-10 SEEN RBC Casts 0-5 SEEN Urine Mucus 0 SEEN Radiography Diagnostic Testing: Clinical Impression(s) from Imaging Studies Abdomen/Pelvis CT 10/11/23 19:52 IMPRESSION: Large hiatal hernia. No other acute abnormalities are identified. Electronically Signed: Addi Justice MD at 20:37 EDT , Treatment and Re-Evaluation Narrative: I have personally performed a face to face assessment of the patient and have reviewed the DEVYN Note. I performed a substantive portion of the visit including all aspects of the following. My berry findings include: History is 68-year-old male presenting with hematuria. Symptoms started yesterday. He notes nausea and abdominal pain that radiates to the bilateral flanks. He was seen in the emergency department beginning of September had a CT scan and noted to have hematuria at that time as well. He was noted to have bilateral pleural effusions which she was referred to both cardiology and primary care. He was given Lasix at that time. He is a non-smoker. Not on blood thinners. He states he feels like he is emptying his bladder. Exam is afebrile slightly tachycardic which has resolved. He is slightly diaphoretic. Complains of tenderness to palpation of the lower bilateral abdomen. No rashes. Medical Decison Making patient with no overt urinary tract infection. White count is normal at 10.1 with hemoglobin 13.4. Platelet count is noted to be low at 74. He has a history of thrombocytopenia but I do not see a clear reason why. Creatinine is slightly elevated off of baseline at 1.51. Patient CT scan I do question whether or not there is a small punctate stone in the distal right ureter. His thrombocytopenia certainly could result in some hematuria. I am not seeing an overt infection. Patient needs to follow-up with primary care. He also urologic. There is a chance the patient could worsen his he is elderly with multiple medical problems and his examination and history could change. He understands return instructions. Discharge Plan Triage Chief Complaint: Flank Pain ED Midlevel Provider: Destiny Stout ED Provider: Antonio Kemp Dx/Rx/DC Orders Clinical Impression: Thrombocytopenia, Hematuria, Low back pain Instructions: Thrombocytopenia, ED Hematuria Prescriptions: New hydrocodone-acetaminophen 5-325 mg tablet 1 tab PO Q4H PRN PRN (Reason: Pain) 3 Days Qty: 10 0RF ondansetron 4 mg tablet,disintegrating 4 mg PO Q8H PRN PRN (Reason: Nausea) Qty: 10 0RF No Action amlodipine 10 mg tablet 10 mg PO DAILY Qty: 90 3RF atorvastatin 80 mg tablet 80 mg PO QHS Qty: 90 3RF ezetimibe 10 mg tablet 10 mg PO DAILY Qty: 90 3RF metoprolol tartrate 25 mg tablet 25 mg PO BID Qty: 180 3RF Rx Instructions: Hold for heart less than 60 or systolic blood pressure less than 100 mmHg. nitroglycerin 0.4 mg tablet, sublingual 0.4 mg SUBLINGUAL Q5M PRN (Reason: Chest Pain) Qty: 25 3RF aspirin 81 MG tablet,chewable 81 mg PO DAILY@0800 Patient Comments: HEART/BLOOD THINNER pantoprazole [Protonix] 40 mg tablet,delayed release (DR/EC) 40 mg PO BID nystatin 100,000 unit/gram cream 1 applic topical BID ondansetron HCl 8 mg tablet 8 mg PO Q8H PRN PRN (Reason: nausea/vomiting) hydrocodone-acetaminophen 5-325 mg tablet 1 tab PO Q4H PRN PRN (Reason: Pain) 4 Days Qty: 20 0RF furosemide 20 mg tablet 20 mg PO DAILY Qty: 14 0RF potassium chloride 20 mEq tablet extended release 20 meq PO BID Qty: 20 0RF Primary Care Provider: Yaw Singh Referrals: Yaw Singh MD [Primary Care Provider] - 5-7 Days Van Danielle MD [Med Staff - Active Staff] - 3-5 Days if not improving Activity Restrictions/Additional Instructions: Follow-up with your PCP to have blood work rechecked. Your platelet count was low today. Follow-up with urology if you continue to have blood in your urine. Return for any worsening of your pain. Print Language: Chinese Disposition Disposition: Home, Self Care
--- NOTE | 2023-10-11 17:57 | EKG12_ITS ---
Test Reason : DYSRHYTHMIA Blood Pressure : / mmHG Vent. Rate : 111 BPM Atrial Rate : 111 BPM P-R Int : 140 ms QRS Dur : 102 ms QT Int : 332 ms P-R-T Axes : 017 014 023 degrees QTc Int : 451 ms Sinus tachycardia with Premature supraventricular complexes Incomplete right bundle branch block Septal infarct , age undetermined Abnormal ECG Confirmed by RONA MANNING, PATRICK ([id number]), editor greeting card CHRISTIANO OWENS ([id number]) on 10/12/2023 9:39:43 AM Referred By: TALITA Confirmed By:PATRICK REA MD
[2023-10-11] MEDS: 0.9% Normal Saline (1000mL) 1,000 ML 999 ML IV (18:01)
[2023-10-11] MEDS: Ondansetron 4 MG/2 ML Vial IV (18:01)
[2023-10-11] MEDS: Morphine 4 MG/ML Syringe IV (18:02)
[2023-10-11 18:14] LABS: Absolute Lymphocyte Count 0.14 X10^3/uL (0.83-4.51); Absolute Neutrophil Count 9.4 X10^3/uL (2.0-7.7); Basophil# 0.04 X10^3/uL; Basophil% 0.4 % (0-1); Eosinophil# 0.14 X10^3/uL; Eosinophils% 1.4 % (0-5); Hematocrit 41.3 % (40-54); Hemoglobin 13.4 g/dL (13.0-16.5); Lymphocyte # 0.14 X10^3/ul (0.83-4.51); Lymphocyte % 1.4 % (19-41); Mean Corp Hgb Conc 32.4 g/dL (32-36); Mean Corpuscular Hgb 27.2 pg (27.0-32.0); Mean Corpuscular Volume 83.9 fL (80-94); Mean Platelet Vol. 9.9 fl (6.2-12.0); Monocyte# 0.26 X10^3/uL; Monocyte% 2.6 % (0-10); NRBC Flagged by Analyzer 0 % (0-5); Neutrophil # 9.39 X10^3/uL (2.7-7.7); Neutrophil % 93.3 % (47-70); POSITIVE COUNT YES; POSITIVE DIFFERENTIAL YES; Platelet Count 74 K/mm3 (150-450); RBC Distribution Width CV 14.6 % (11.6-14.6); RBC Distribution Width SD 44.8 fl (35.1-43.9); Red Blood Count 4.92 M/mm3 (4.6-6.2); White Blood Count 10.1 K/mm3 (4.4-11.0)
[2023-10-11 18:29] LABS: Anion Gap 11 (5-15); BUN 23 mg/dL (7-18); BUN/Creat Ratio 15.2 RATIO (10-20); Calcium,Total 8.8 mg/dL (8.5-10.1); Chloride 101 mmol/L (98-107); Creatinine, Serum 1.51 mg/dL (0.70-1.30); EST Glomerular Filtration Rate 49 mL/min (>60); Est Glom Filt Rate - Afr Amer 59 mL/min (>60); Glucose 134 mg/dL (74-106); Potassium 3.9 mmol/L (3.5-5.1); Sodium Level 133 mmol/L (136-145)
[2023-10-11 18:38] LABS: Differential Indicated SCAN CRITERIA MET
[2023-10-11 19:04] LABS: Bacteria 0 SEEN /hpf (None Seen); Mucous, Urine 0 SEEN /hpf (<or=2+)
[2023-10-11 19:07] LABS: Color, Urine Amber (Yellow); Glucose, Dipstick Normal (Normal); Ketone-Dipstick 5 mg/dl (Negative); Leukocyte Esterase-Dipstick 25 /ul (Negative); Nitrite-Dipstick Negative (Negative); Occult Blood-Urine 150 /ul (Negative); Protein-Dipstick 100 mg/dl (Negative); Urine Clarity Cloudy (Clear); Urine Urobilinogen 1 mg/dl (Normal)
[2023-10-11 19:09] LABS: Urine Bilirubin Dipstick 1 mg/dL (Negative)
[2023-10-11 19:15] LABS: Red Blood Cells-Urine 10-25 SEEN /hpf (0-5); Squamous Epithelial Cells - UA 0-5 SEEN /hpf (0-5); White Blood Cells 0-5 SEEN /hpf (0-5)
[2023-10-11 19:16] LABS: Fine Granular Cast- Urine 5-10 SEEN /lpf (0-5); Red Cell Cast 0-5 SEEN /lpf (None Seen)
[2023-10-11 19:17] LABS: Amorphous Sediment 2+ URATE
[2023-10-11 19:21] VITALS: PULSE 75; RESP 16; O2SAT 98
--- NOTE | 2023-10-11 19:52 | CT_ITS ---
EXAM: CT ABDOMEN AND PELVIS WITHOUT INTRAVENOUS CONTRAST CLINICAL INDICATION: flank pain TECHNIQUE: Helically acquired images were obtained of the abdomen and pelvis without intravenous contrast. This CT exam was performed using one or more of the following dose reduction techniques: automated exposure control, adjustment of the mA and/or kV according to patient size, and/or use of iterative reconstruction technique. COMPARISON: 09/11/2023 FINDINGS: LOWER THORAX: There are bilateral pleural effusions larger on the right. There is a hiatal hernia present. There are moderate to severe coronary artery calcifications. ABDOMEN: LIVER: Unremarkable. Homogeneous. GALLBLADDER AND BILE DUCTS: Unremarkable. No calcified gallstones. No gallbladder distention or wall edema. No intra- or extrahepatic biliary ductal dilation. PANCREAS: Unremarkable. No focal cystic mass. SPLEEN: There are splenic granulomas. Bilateral pleural effusions larger on the left than on the right. There is bibasilar atelectasis or pneumonia. ADRENALS: Unremarkable. No nodules. KIDNEYS AND URETERS: There are nonobstructing calyceal stones in the right kidney. Normal renal size and position. STOMACH AND BOWEL: There is sigmoid diverticulosis with no evidence of diverticulitis. No stomach or bowel distention. PELVIS: APPENDIX: No evidence of acute appendicitis. BLADDER: Unremarkable. REPRODUCTIVE: Unremarkable as visualized. No mass. ABDOMEN and PELVIS: INTRAPERITONEAL SPACE: Unremarkable. No ascites or other fluid collection. No free air. BONES/JOINTS: Unremarkable. No suspicious lytic or blastic abnormality. SOFT TISSUES: Unremarkable. No discrete abdominal or pelvic wall hernia. VASCULATURE: See above. LYMPH NODES: Unremarkable. No enlarged lymph nodes. CT/Abdomen/Pelvis without Cont IMPRESSION: Large hiatal hernia. No other acute abnormalities are identified. Electronically Signed: Addi Justice MD at 20:37 EDT ,
[2023-10-11 20:04] LABS: Platelet Estimate MOD DEC (ADEQ); Platelet Morphology LARGE
[2023-10-11 21:07] VITALS: BP 105/80; PULSE 84; RESP 18; TEMP 37.2; O2SAT 98
== END 2023-10-11 21:09 | disposition home or self-care (01) ==
PROVIDERS: Physician Assistant; Emergency Provider Emergency Medicine; PCP Family Medicine; Visit Provider Emergency Medicine
DX: D69.6 Thrombocytopenia, unspecified (principal); R31.9 Hematuria, unspecified; M54.50 Low back pain, unspecified; I25.10 Atherosclerotic heart disease of native coronary artery without angina pectoris; Z95.1 Presence of aortocoronary bypass graft; Z95.5 Presence of coronary angioplasty implant and graft
CPT/HCPCS: 99283; 74176; 80048; 81001; 85025; 93005; J7030; A4216; J2405

== ENCOUNTER 2023-10-12 16:11 | Inpatient (IN) | payer MEDICARE, OTHER, SELFPAY ==
[2023-10-12] VITALS (12 sets, daily range): BP systolic 97–139; BP diastolic 76–99; PULSE 80–149; RESP 16–95; TEMP 36.4–37.6; O2SAT 30–99; BMI 28.5; BMI 29.5
--- NOTE | 2023-10-12 16:14 | ED.RN ---
pt heart rate reading 195 on monitor. radial pulse palpated at 80. pt diaphoretic and calmy, slow to respond and weak. called for ekg.
--- NOTE | 2023-10-12 16:28 | RAD_ITS ---
STUDY: X-RAY CHEST REASON FOR EXAM: Male, 68 years old. Dyspnea and hypotension TECHNIQUE: Single AP portable view of the chest. COMPARISON: 03/24/2021 FINDINGS: Status post median sternotomy. Suspect transcatheter aortic valve replacement. The lungs are clear and expanded. No change in small bilateral pleural effusions with bibasilar atelectasis. There is moderate cardiac enlargement. Normal mediastinum and héctor. Normal visualized pulmonary arteries. Normal visualized aortic arch and descending thoracic aorta. Normal visualized thoracic spine. Normal visualized ribs, clavicles, and shoulders. There is no demonstrated abnormality of the visualized soft tissue structures of the upper abdomen. RAD/Chest 1 View (Portable) IMPRESSION: 1. Small bilateral pleural effusions with bibasilar atelectasis. 2. Cardiomegaly. Electronically Signed: Rios Rosario MD at 17:11 EDT ,
--- NOTE | 2023-10-12 16:28 | EKG12_ITS ---
Test Reason : flank pain Blood Pressure : / mmHG Vent. Rate : 145 BPM Atrial Rate : 145 BPM P-R Int : 132 ms QRS Dur : 096 ms QT Int : 282 ms P-R-T Axes : -11 019 070 degrees QTc Int : 438 ms Critical Test Result: High HR Sinus tachycardia with Premature supraventricular complexes Nonspecific T wave abnormality Abnormal ECG Confirmed by Laci Mann ([id number]), commercial production editor CHRISTIANO OWENS ([id number]) on 10/15/2023 10:39:47 AM Referred By: Confirmed By:Laci Mann
--- NOTE | 2023-10-12 16:42 | EX.ED.DYSGE1 ---
HPI History of Present Illness Chief Complaint: Flank Pain Detail of Chief Complaint: Flank pain, confusion, gross hematuria Informant: spouse/S.O. Onset/Context/Timing Onset: Today Context: Sudden Onset Timing: Continuous Quality: Diaphoresis, confusion Location: Not applicable Current Severity: Patient is disoriented Worsened by: Uncertain Relieved by: Nothing Associated Symptoms Associated Symptoms: seen yesterday. And was tachycardic at that time as well as diaphoretic. Narrative Narrative: Patient is a 68-year-old male. He believes he is 64. Does not know the month. He does not know why he is here. His brought in because of confusion, sweaty and gross hematuria. Records from yesterday reviewed. On axial cut 152 there is concern for right ureteral stone. He does complain of right flank pain. He has had nausea. There is been no vomiting or diarrhea. History is very limited. Prior similar symptoms: Yes Recent Illness/Hospitalization: Yes PFSH [facility] Medical History Adenocarcinoma of esophagus LEELA (acute kidney injury) Non-smoker Esophageal carcinoma Atherosclerosis of coronary artery of [place] heart without angina pectoris 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 Essential (primary) hypertension Non-rheumatic aortic stenosis Syncope and collapse Hyperlipidemia Atherosclerotic heart disease of [place] coronary artery with other forms of angina pectoris Encounter for long-term current use of high risk medication abnormal stress test Angina pectoris Exertional chest pain URI (upper respiratory infection) Home Medications ?Medication ?Instructions ?Recorded ?Last Taken ?Type aspirin 81 mg chewable tablet 81 mg PO DAILY@0800 HEALTH 01/23/14 1 Week Ago History ~03/17/21 pantoprazole 40 mg tablet,delayed 40 mg PO BID GERD 03/24/21 03/24/21 History release (Protonix) amlodipine 10 mg tablet 10 mg PO DAILY BP #90 tabs 05/15/22 Unknown Rx atorvastatin 80 mg tablet 80 mg PO QHS CHOLESTEROL #90 tabs 05/15/22 Unknown Rx ezetimibe 10 mg tablet 10 mg PO DAILY CHOLESTEROL #90 tabs 05/15/22 Unknown Rx metoprolol tartrate 25 mg tablet 25 mg PO BID HEART #180 tabs 05/15/22 Unknown Rx nitroglycerin 0.4 mg sublingual 0.4 mg sublingual Q5M PRN Chest 05/15/22 Unknown Rx tablet Pain #25 tabs furosemide 20 mg tablet 20 mg PO DAILY #14 tabs 09/11/23 Unknown Rx hydrocodone-acetaminophen 5-325mg 1 tab PO Q4H PRN PRN Pain 4 days 09/11/23 Unknown Rx 5mg-325mg #20 TABLETS nystatin 100,000 unit/gram topical 1 applic topical BID right chest 09/11/23 Unknown History cream ondansetron HCl 8 mg tablet 8 mg PO Q8H PRN PRN nausea/vomiting 09/11/23 Unknown History potassium chloride 20 mEq 20 meq PO BID #20 tabs 09/11/23 Unknown Rx tablet,extended release hydrocodone-acetaminophen 5-325mg 1 tab PO Q4H PRN PRN Pain 3 days 10/11/23 Unknown Rx 5mg-325mg #10 TABLETS ondansetron 4 mg disintegrating 4 mg PO Q8H PRN PRN Nausea #10 tabs 10/11/23 Unknown Rx tablet Allergy/AdvReac Type Severity Reaction Status Date / Time No Known Allergies Allergy Verified 10/12/23 16:11 Family History Father Heart disease Myocardial infarction Hypertension Brother Hypertension Sister Heart disease Myocardial infarction Surgical History History of aortic valve replacement (03/03/19) History of coronary artery stent placement (12/31/18) H/O coronary artery bypass surgery (09/18/02) History of tonsillectomy History of hernia repair Social History Smoking Status: Never smoker alcohol intake: never substance use type: does not use caffeine: No what type of physical activity do you participate in: walking frequency: daily ROS ROS ED Review of Systems ROS Unobtainable: due to mental status Constitutional Constitutional ED: Reports sweats Cardiovascular Cardiovascular: Denies chest pain or palpitations Respiratory/Chest Respiratory/Chest: Denies cough, dyspnea or dyspnea on exertion Gastrointestinal Gastrointestinal: Denies abdominal pain, diarrhea or vomiting Genitourinary Genitourinary ED: Reports hematuria Musculoskeletal Musculoskeletal: Reports back pain Integumentary Denies rash Neurologic Neurologic: Denies headache(s) EXAM Physical Exam Const Vital Signs: 10/12/23 16:12 10/12/23 16:28 10/12/23 16:58 Temperature 97.5 F L 99.6 F H Temperature Source Temporal Temporal Pulse Rate 80 125 H Respiratory Rate 16 43 H Blood Pressure 97/76 117/79 Blood Pressure Mean 83 91 Pulse Ox 99 99 Oxygen Delivery Method Room Air Room Air Room Air 10/12/23 17:30 10/12/23 17:55 10/12/23 18:09 Temperature 99.4 F H 99 F Temperature Source Oral Pulse Rate 127 H 128 H 127 H Respiratory Rate 34 H 95 H 29 H Blood Pressure 117/92 H 120/91 H Blood Pressure Mean 100 100 Pulse Ox 96 30 99 Oxygen Delivery Method Room Air Positive well nourished and well developed Constitutional Narrative: Patient is tachypneic breathing much faster than 16 times a minute. He is hypotensive. He is disoriented. He is diaphoretic. He does not have cyanosis centrally or peripherally. General Appearance ED: well developed and diaphoretic; Negative for cyanotic or pallor HEENT Reports dry mucous membranes HEENT Narrative: Head is atraumatic normocephalic. Ears normal. Nares patent. Posterior pharynx is normal. Mouth ED: Yes dry mucous membranes Mouth: dry mucous membranes Eyes PERRL and EOMs intact bilaterally Eyes Narrative: Pupils are small. There is no nystagmus. General Eye ED: Negative for pale conjunctiva or scleral icterus Neck no lymphadenopathy, supple and no JVD Resp normal respiratory effort and clear to auscultation bilaterally Cardio regular rate, regular rhythm, S1 normal heart sound, S2 normal heart sound and no murmurs GI normal to inspection, nondistended, normoactive bowel sounds, non-tender and no masses; Negative for non-distended or hepatosplenomegaly Inspection: abdominal distention Palpation: soft Back/Spine Back/Spine Narrative: Equivocal right flank pain. Extremity normal to inspection Neuro No oriented x3, CN's II-XII intact bilaterally and no sensory deficits noted Sensorium / Orientation: orientation impaired; Negative for alert Psych Psych Narrative: Difficult to assess. Patient seems to stare. He is very slow to response. Skin General Skin Exam: Negative for jaundice or pallor MDM MDM MDM Narrative Medical decision making narrative: With hypotension, tachypnea, diaphoresis and recent visit with possible obstructing stone need to evaluate for urosepsis due to obstructing stone. Of note the radiologist did not report a ureteral stone. This was noted by the emergency physician. Sepsis workup was initiated. Patient will receive a fluid bolus of 1 L. Since his systolic is not less than 90 and mean arterial pressure is greater than 65 he did not receive a 30 cc/kg bolus especially since he has history of coronary artery disease. History & Record Review Additional record(s) reviewed:: Prior outpatient record, Prior ED visit and Prior labs Lab Data Attestation: I reviewed the patient's lab results. Lab results narrative: White count is normal. There is a shift in his differential. Competence metabolic panel reveals high anion gap acidosis with a lactate of 3.5. Lactate has risen from 1.51-3.54. In September he had a normal creatinine of 1.30 with an estimated GFR 58. His estimated GFR is now 18. Total bili is slightly elevated at 2.3. Urine reveals 5100 RBCs 10-25 WBCs with 2+ bacteria. Labs: Laboratory Results - last 24 hr 10/12/23 10/12/23 16:30 16:41 WBC 9.4 RBC 5.51 Hgb 14.7 Hct 45.4 MCV 82.4 MCH 26.7 L MCHC 32.4 RDW Std Deviation 44.2 H RDW Coeff of [place]cos 14.6 Plt Count 26 L* MPV 11.8 Immature Gran % (Auto) 0.600 Neut % (Auto) 94.2 H Lymph % (Auto) 1.[address] [place] % (Auto) 3.3 Eos % (Auto) 0.0 Baso % (Auto) 0.3 Absolute Neuts (auto) 8.8 H Absolute Lymphs (auto) 0.15 L Nucleated RBC % 0 Differential Comment SEE COMMENT Diff Path Review May foll Platelet Estimate MKD DEC RBC Morphology N CHROM Anisocytosis RARE Microcytosis RARE Ovalocytes RARE PT 17.6 H INR 1.5 APTT 37.8 H Sodium 131 L Potassium 4.0 Chloride 98 Carbon Dioxide 18.0 L Anion Gap 15 BUN 52 H Creatinine 3.54 H Estim Creat Clear Calc 22.26 Est GFR (MDRD) Af Amer 22 L Est GFR (MDRD) Non-Af 18 L BUN/Creatinine Ratio 14.7 Glucose 140 H Lactic Acid 3.5 H* Calcium 8.4 L Total Bilirubin 2.30 H AST 70 H ALT 32 Alkaline Phosphatase 67 Total Protein 6.4 Albumin 2.7 L Globulin 3.7 Albumin/Globulin Ratio 0.7 L Urine Color Yellow Urine Clarity Cloudy Urine pH 6.0 Ur Specific [place] 1.020 Urine Protein 100 H Urine Glucose (UA) Normal Urine Ketones Negative Urine Occult Blood 250 H Urine Nitrite Negative Urine Bilirubin Negative Urine Urobilinogen Normal Ur Leukocyte Esterase 100 H Urine RBC 50-100 SEEN Urine WBC 10-25 SEEN Ur Squamous Epith Cells 0-5 SEEN Amorphous Sediment 2+ URATE Urine Bacteria 2+ Fine Granular Casts 0-5 SEEN RBC Casts 0-5 SEEN Urine Mucus RARE Radiography Chest X-Ray - ED: 1 View and Read by ED Physician (Bilateral pleural effusions left greater than right. There is cardiomegaly. There is no obvious infiltrate. There is no pneumothorax. Osseous structures are unremarkable. This was independent reviewed interpreted by me.) Diagnostic Testing: Clinical Impression(s) from Imaging Studies Chest X-Ray 10/12/23 16:28 IMPRESSION: 1. Small bilateral pleural effusions with bibasilar atelectasis. 2. Cardiomegaly. Electronically Signed: Rios Rosario MD at 17:11 EDT , Management Discussion w/another healthcare provider: Hospitalist (Dr. Paloma Pryor did see patient. Admit full PCU stepdown) and Telemetry Monitor (Because of concern for obstructing stone on the right contacted urology. He will look at images. 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
[2023-10-12 16:54] LABS: Color, Urine Yellow (Yellow); Glucose, Dipstick Normal (Normal); Ketone-Dipstick Negative (Negative); Leukocyte Esterase-Dipstick 100 /ul (Negative); Nitrite-Dipstick Negative (Negative); Occult Blood-Urine 250 /ul (Negative); Protein-Dipstick 100 mg/dl (Negative); Urine Bilirubin Dipstick Negative (Negative); Urine Clarity Cloudy (Clear); Urine Urobilinogen Normal (Normal)
[2023-10-12 16:54] LABS: Absolute Lymphocyte Count 0.15 X10^3/uL (0.83-4.51); Absolute Neutrophil Count 8.8 X10^3/uL (2.0-7.7); Basophil# 0.03 X10^3/uL; Basophil% 0.3 % (0-1); Hematocrit 45.4 % (40-54); Hemoglobin 14.7 g/dL (13.0-16.5); Lymphocyte # 0.15 X10^3/ul (0.83-4.51); Lymphocyte % 1.6 % (19-41); Mean Corp Hgb Conc 32.4 g/dL (32-36); Mean Corpuscular Hgb 26.7 pg (27.0-32.0); Mean Corpuscular Volume 82.4 fL (80-94); Mean Platelet Vol. 11.8 fl (6.2-12.0); Monocyte# 0.31 X10^3/uL; Monocyte% 3.3 % (0-10); NRBC Flagged by Analyzer 0 % (0-5); Neutrophil # 8.81 X10^3/uL (2.7-7.7); Neutrophil % 94.2 % (47-70); POSITIVE COUNT YES; POSITIVE DIFFERENTIAL YES; POSITIVE MORPHOLOGY YES; RBC Distribution Width CV 14.6 % (11.6-14.6); RBC Distribution Width SD 44.2 fl (35.1-43.9); Red Blood Count 5.51 M/mm3 (4.6-6.2); White Blood Count 9.4 K/mm3 (4.4-11.0)
[2023-10-12] MEDS: 0.9% Normal Saline (1000mL) 1,000 ML 999 ML IV ×2 (16:55→19:50)
[2023-10-12 17:07] LABS: International Normalized Ratio 1.5; Partial Thromboplast Time 37.8 Seconds (24.1-36.2); Prothrombin Time (Protime)PT. 17.6 SECONDS (11.7-14.9)
[2023-10-12 17:09] LABS: ALB/GLOB Ratio 0.7 RATIO (0.9-2.4); AST(SGOT) 70 U/L (15-37); Alanine Aminotransfer ALT/SGPT 32 U/L (16-61); Albumin, Serum 2.7 g/dL (3.2-5.0); Alkaline Phosphatase 67 U/L (45-117); Anion Gap 15 (5-15); BUN 52 mg/dL (7-18); BUN/Creat Ratio 14.7 RATIO (10-20); Calcium,Total 8.4 mg/dL (8.5-10.1); Chloride 98 mmol/L (98-107); Creatinine, Serum 3.54 mg/dL (0.70-1.30); EST Glomerular Filtration Rate 18 mL/min (>60); Est Glom Filt Rate - Afr Amer 22 mL/min (>60); Estimated Creatinine Clearance 22.26 ml/min; Globulin 3.7 g/dL (2.2-4.2); Glucose 140 mg/dL (74-106); Protein, Total 6.4 g/dL (6.4-8.2); Sodium Level 131 mmol/L (136-145)
[2023-10-12 17:10] LABS: Bacteria 2+ /hpf (None Seen); Mucous, Urine RARE /hpf (<or=2+); Red Blood Cells-Urine 50-100 SEEN /hpf (0-5); Squamous Epithelial Cells - UA 0-5 SEEN /hpf (0-5); White Blood Cells 10-25 SEEN /hpf (0-5)
[2023-10-12 17:11] LABS: Amorphous Sediment 2+ URATE; Fine Granular Cast- Urine 0-5 SEEN /lpf (0-5); Red Cell Cast 0-5 SEEN /lpf (None Seen)
[2023-10-12 17:24] LABS: Differential Indicated SCAN CRITERIA MET; Platelet Count 26 K/mm3 (150-450)
[2023-10-12 17:26] LABS: Anisocytosis RARE; Microcytosis RARE; Ovalocyte RARE; Platelet Estimate MKD DEC (ADEQ); Red Cell Morphology N CHROM NORMAL (NORM C&C)
[2023-10-12 17:29] LABS: Lactic Acid 3.5 mmol/L (0.4-1.9)
[2023-10-12] MEDS: Ceftriaxone 1 GM/50 ML BAG IV ×2 (18:07→20:44)
--- NOTE | 2023-10-12 18:24 | HP.PCM.HOS_ITS ---
HPI - General General Date of Admission: 10/12/23 Date of Service: 10/12/23 Chief Complaint: AMS, R flank pain HPI Narrative NICKO ROSALES, is a 68-year-old male history of esophageal carcinoma, GERD, hypertension, coronary artery disease with stent placement and CABG who presented to [facility] ED 10/12/2023 due to flank pain, confusion, and gross hematuria. Patient was in the ED 10/11/2023 due to lower back pain that radiated to his groin with an episode of nausea and vomiting earlier in the day. CT scan of abdomen pelvis at the time negative for acute findings per radiology review and per ED physician review possible small right- sided stone however patient felt better and UA not suggestive of UTI, patient treated conservatively with an outpatient urology referral and discharged home in stable condition. Today patient worsened prompting repeat ED visit. In the ED patient was found to have sodium of 131 with a creatinine of 3.54 and BUN 52 up from baseline, plt 26, elevated bili, UA suggestive of UTI and LA 3.5. Patient additionally tachypneic and tachycardic and there was concern for sepsis so patient had broad workup, fluids, panculture, broad-spectrum antibiotics. Given CT scan yesterday and question of stone urology contacted who reviewed the images and did not think that there was any kidney stone in the ureter. Hospitalist contacted for admission. Evaluated patient with at bedside, provided part of the history as patient would answer questions but was very slow to respond and had difficulty with specifics. Per history as above and since yesterday has just been progressively more confused and has had very dark urine though denies any overt blood in the urine, has not had a bowel movement for several days, sweats at home but no measured temperature, patient denied any present abdominal pain but still has some right flank pain, denies shortness of breath or swelling in his legs. [facility] Medical History Adenocarcinoma of esophagus LEELA (acute kidney injury) Non-smoker Esophageal carcinoma Atherosclerosis of coronary artery of [place] heart without angina pectoris 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 Essential (primary) hypertension Non-rheumatic aortic stenosis Syncope and collapse Hyperlipidemia Atherosclerotic heart disease of [place] coronary artery with other forms of angina pectoris Encounter for long-term current use of high risk medication abnormal stress test Angina pectoris Exertional chest pain URI (upper respiratory infection) Home Medications ?Medication ?Instructions ?Recorded ?Last Taken ?Type aspirin 81 mg chewable tablet 81 mg PO DAILY@0800 HEALTH 01/23/14 1 Week Ago History ~03/17/21 pantoprazole 40 mg tablet,delayed 40 mg PO BID GERD 03/24/21 03/24/21 History release (Protonix) amlodipine 10 mg tablet 10 mg PO DAILY BP #90 tabs 05/15/22 Unknown Rx atorvastatin 80 mg tablet 80 mg PO QHS CHOLESTEROL #90 tabs 05/15/22 Unknown Rx ezetimibe 10 mg tablet 10 mg PO DAILY CHOLESTEROL #90 tabs 05/15/22 Unknown Rx metoprolol tartrate 25 mg tablet 25 mg PO BID HEART #180 tabs 05/15/22 Unknown Rx nitroglycerin 0.4 mg sublingual 0.4 mg sublingual Q5M PRN Chest 05/15/22 Unknown Rx tablet Pain #25 tabs furosemide 20 mg tablet 20 mg PO DAILY #14 tabs 09/11/23 Unknown Rx hydrocodone-acetaminophen 5-325mg 1 tab PO Q4H PRN PRN Pain 4 days 09/11/23 Unknown Rx 5mg-325mg #20 TABLETS nystatin 100,000 unit/gram topical 1 applic topical BID right chest 09/11/23 Unknown History cream ondansetron HCl 8 mg tablet 8 mg PO Q8H PRN PRN nausea/vomiting 09/11/23 Unknown History potassium chloride 20 mEq 20 meq PO BID #20 tabs 09/11/23 Unknown Rx tablet,extended release hydrocodone-acetaminophen 5-325mg 1 tab PO Q4H PRN PRN Pain 3 days 10/11/23 Unknown Rx 5mg-325mg #10 TABLETS ondansetron 4 mg disintegrating 4 mg PO Q8H PRN PRN Nausea #10 tabs 10/11/23 Unknown Rx tablet Allergy/AdvReac Type Severity Reaction Status Date / Time No Known Allergies Allergy Verified 10/12/23 16:11 Family History Father Heart disease Myocardial infarction Hypertension Brother Hypertension Sister Heart disease Myocardial infarction Surgical History History of aortic valve replacement (03/03/19) History of coronary artery stent placement (12/31/18) H/O coronary artery bypass surgery (09/18/02) History of tonsillectomy History of hernia repair Social History Smoking Status: Never smoker alcohol intake: never substance use type: does not use caffeine: No what type of physical activity do you participate in: walking frequency: daily ROS ROS Narrative General: Sweaty at home HENT: Denies headache, denies stuffy nose, denies sore throat EYES: Denies changes in vision Resp: Denies cough, denies shortness of breath Cardiac: Denies chest pain GI: Right flank pain, no bowel movement since Sunday, denies nausea/vomiting : Dark urine and decreased urine output Extremity: Denies swelling MSK: Denies weakness Neuro: Denies any numbness/tingling Heme: Denies any bleeding or bruising Skin: Denies rashes Psychiatric: Patient is somewhat confused Vital Signs Vital Signs Vital Signs: 10/12/23 16:12 10/12/23 16:28 10/12/23 16:58 Temperature 97.5 F L 99.6 F H Temperature Source Temporal Temporal Pulse Rate 80 125 H Respiratory Rate 16 43 H Blood Pressure 97/76 117/79 Blood Pressure Mean 83 91 Pulse Ox 99 99 Oxygen Delivery Method Room Air Room Air Room Air 10/12/23 17:30 10/12/23 17:55 10/12/23 18:09 Temperature 99.4 F H 99 F Temperature Source Oral Pulse Rate 127 H 128 H 127 H Respiratory Rate 34 H 95 H 29 H Blood Pressure 117/92 H 120/91 H Blood Pressure Mean 100 100 Pulse Ox 96 30 99 Oxygen Delivery Method Room Air Weight Weight: 90.265 kg Body Mass Index (BMI) 28.5 Physical Exam Narrative General: Awake, slow to answer questions, difficulty with orientation questions HEENT: Atraumatic, normocephalic Eyes: Anicteric, normal conjunctiva, extraocular movements grossly intact Neck: Supple Respiratory: Clear to auscultation bilaterally, normal respiratory effort Cardiovascular: Tachycardic GI: Slightly tender towards right flank without rebound, guarding, rigidity Extremities: No edema Musculoskeletal: Moving all extremities Neuro: No overt focal neurological deficits Skin: No rashes appreciated Psych: Cooperative Results Lab / Micro Data 10/12/23 16:30 10/12/23 16:30 Labs: Laboratory Results - last 24 hr 10/12/23 16:30: WBC 9.4, RBC 5.51, Hgb 14.7, Hct 45.4, MCV 82.4, MCH 26.7 L, MCHC 32.4, RDW Std Deviation 44.2 H, RDW Coeff of [place]cos 14.6, Plt Count 26 L*, MPV 11.8, Immature Gran % (Auto) 0.600, Neut % (Auto) 94.2 H, Lymph % (Auto) 1.6 L, [place] % (Auto) 3.3, Eos % (Auto) 0.0, Baso % (Auto) 0.3, Absolute Neuts (auto) 8.8 H, Absolute Lymphs (auto) 0.15 L, Nucleated RBC % 0, Differential Comment SEE COMMENT, Diff Path Review May foll, Platelet Estimate MKD DEC, RBC Morphology N CHROM, Anisocytosis RARE, Microcytosis RARE, Ovalocytes RARE, PT 17.6 H, INR 1.5, APTT 37.8 H, Sodium 131 L, Potassium 4.0, Chloride 98, Carbon Dioxide 18.0 L, Anion Gap 15, BUN 52 H, Creatinine 3.54 H, Estim Creat Clear Calc 22.26, Est GFR (MDRD) Af Amer 22 L, Est GFR (MDRD) Non-Af 18 L, BUN/Creatinine Ratio 14.7, Glucose 140 H, Lactic Acid 3.5 H*, Calcium 8.4 L, T otal Bilirubin 2.30 H, AST 70 H, ALT 32, Alkaline Phosphatase 67, Total Protein 6.4, Albumin 2.7 L, Globulin 3.7, Albumin/Globulin Ratio 0.7 L 10/12/23 16:41: Urine Color Yellow, Urine Clarity Cloudy, Urine pH 6.0, Ur Specific [place] 1.020, Urine Protein 100 H, Urine Glucose (UA) Normal, Urine Ketones Negative, Urine Occult Blood 250 H, Urine Nitrite Negative, Urine Bilirubin Negative, Urine Urobilinogen Normal, Ur Leukocyte Esterase 100 H, Urine RBC 50-100 SEEN, Urine WBC 10-25 SEEN, Ur Squamous Epith Cells 0-5 SEEN, Amorphous Sediment 2+ URATE, Urine Bacteria 2+, Fine Granular Casts 0-5 SEEN, RBC Casts 0-5 SEEN, Urine Mucus RARE Imaging Radiology Impression Chest X-Ray 10/12/23 16:28 IMPRESSION: 1. Small bilateral pleural effusions with bibasilar atelectasis. 2. Cardiomegaly. Electronically Signed: Rios Rosario MD at 17:11 EDT , Assessment & Plan Assessment/Plan (1) Sepsis: (2) Acute kidney injury: (3) H/O coronary artery bypass surgery: (4) History of aortic valve replacement: (5) Serum total bilirubin elevated: (6) Thrombocytopenia: PLAN: Plan # Concern for sepsis, suspect urinary source -Patient with new LEELA, bili of 2.3, altered mental status, plt 26, and lactic acid 3.5 -UA suggestive of a UTI -Patient given 1 L IV fluid in the ED due to concerns for his effusions and cardiac history, 3 L indicated given sepsis protocol, will give another liter and a bolus followed by 100 cc an hour for the final liter as BP is maintaining and there is concern the patient could have respiratory compromise so patient will receive 2 L boluses, remaining liter at 100/h, if any downtrend in BP or worsening status can give an additional bolus -IV antibiotics -Panculture # Acute kidney failure -Creatinine 3.54 and yesterday was 1.51 -Suspect secondary to sepsis -IV fluids -Avoid nephrotoxic agents -Will monitor I's and O's # Metabolic encephalopathy -2/2 sepsis and UTI -Treat underlying infection #Thrombocytopenia -Suspect 2/2 sepsis -treat underlying infection #Elevated lactic acid -Likely 2/2 sepsis -IVF -Abx # Hyponatremia -Patient received IV fluids -Repeat in a.m. -If any worsening will begin further workup # History of coronary artery disease with history of CABG and stenting -Continue aspirin and statin #GERD -Continue PPI #Hypertension -Blood pressure on the low side, hold home medications # Previous history of esophageal carcinoma -With previous surgery on stomach and esophagus remotely #Small bilateral pleural effusions and cardiomegaly on CXR -Seen on chest x-ray -Denies shortness of breath -Saturating well -Will give sepsis fluids and monitor daily weights and I's and O's and respiratory status given patient's workup and tachycardia feel it is reasonable to give him 2 L boluses and the third liter at 100 and hour while monitoring respiratory status #DVT ppx: Heparin subcu Paloma Pryor MD Time spent in the patient's overall evaluation,decision-making process, review of diagnostic data, adjustment of management, discussion with other providers, nursing nursing and ancillary staff involved in patient's care documentation, 60 Minutes Charges/Coding Visit Charges Inpatient E&M: 57252 Init Hosp L2
[2023-10-12] MEDS: Ondansetron 4 MG/2 ML Vial IV (20:19)
[2023-10-12 20:49] LABS: Reflex Lactate? Y
[2023-10-12] MEDS: 0.9% Normal Saline (1000mL) 1,000 ML 100 ML IV (20:53)
[2023-10-12] MEDS: 0.9% Normal Saline (500mL Bag) 500 ML 999 ML IV (21:53)
[2023-10-12 23:06] LABS: Lactic Acid 2.2 mmol/L (0.4-1.9)
--- NOTE | 2023-10-12 23:25 | RAD_ITS ---
EXAM: XR CHEST, 1 VIEW CLINICAL INDICATION: tachypnea TECHNIQUE: Frontal view of the chest. COMPARISON: 10/12/2023 at 4:58 PM. FINDINGS: LUNGS AND PLEURAL SPACES: Persistent moderate bilateral pleural effusions and atelectasis in the lower lobes. No pneumothorax. HEART: Cardiomegaly. Status post coronary artery bypass graft. MEDIASTINUM: Central airways and mediastinal contour are unremarkable. BONES/JOINTS: Sternal wires. No acute fracture. SOFT TISSUES: Unremarkable. VASCULATURE: Status post aortic valvuloplasty. RAD/Chest 1 View (Portable) IMPRESSION: 1. No significant change since previous exam. 2. Cardiomegaly. 3. Persistent moderate bilateral pleural effusions and atelectasis in the lower lobes. Electronically Signed: Laci Crandall MD at 0:57 EDT ,
[2023-10-12] MEDS: Albumin Human 25% (100 mL) 25 GM/100 ML BAG IV (23:33)
[2023-10-12 23:36] LABS: Allen Test Positive; Base Excess -9 mmol/L (-2 to +2); Bicarbonate 15.1 mmol/L (22-26); Blood Gas Specimen Type ART; Mode Not entered; O2 Delivery Device Room Air; PO2 72 mmHG (75-100); SITE L Radial; SO2 95 % (95-99); Total Carbon Dioxide 16 mmol/L; pCO2 22.4 mmHg (35-45); pH 7.44 (7.35-7.45)
[2023-10-13] VITALS (20 sets, daily range): BP systolic 104–137; BP diastolic 71–104; PULSE 106–149; RESP 20–40; TEMP 35.9–37.6; O2SAT 95–98; BMI 29.6
[2023-10-13] MEDS: Pantoprazole Sodium 40 MG Tablet PO ×3 (00:47→20:51)
[2023-10-13] MEDS: Atorvastatin Calcium 80 MG Tablet PO ×2 (00:47→20:50)
[2023-10-13] MEDS: Senna/Docusate Sodium 1 Tablet 2 TABLET PO ×3 (00:48→20:51)
[2023-10-13] MEDS: Heparin Injection (Vial) 5,000 UNIT/ML VIAL 5000 UNIT SC (00:48)
[2023-10-13] MEDS: 0.9% Saline Lock 10 ML Syringe IV ×2 (05:08→07:54)
[2023-10-13] MEDS: Ondansetron 4 MG/2 ML Vial IV ×2 (05:08→15:47)
[2023-10-13] MEDS: 0.9% Normal Saline (500mL Bag) 500 ML 999 ML IV (06:03)
[2023-10-13 06:29] LABS: Hematocrit 37.9 % (40-54); Hemoglobin 12.2 g/dL (13.0-16.5); Mean Corp Hgb Conc 32.2 g/dL (32-36); Mean Corpuscular Hgb 26.9 pg (27.0-32.0); Mean Corpuscular Volume 83.7 fL (80-94); POSITIVE COUNT YES; RBC Distribution Width CV 15.3 % (11.6-14.6); RBC Distribution Width SD 46.1 fl (35.1-43.9); Red Blood Count 4.53 M/mm3 (4.6-6.2); White Blood Count 7.6 K/mm3 (4.4-11.0)
[2023-10-13 06:33] LABS: Platelet Count 25 K/mm3 (150-450)
[2023-10-13 07:09] LABS: ALB/GLOB Ratio 0.7 RATIO (0.9-2.4); AST(SGOT) 49 U/L (15-37); Alanine Aminotransfer ALT/SGPT 28 U/L (16-61); Albumin, Serum 2.3 g/dL (3.2-5.0); Alkaline Phosphatase 52 U/L (45-117); Anion Gap 11 (5-15); BUN 63 mg/dL (7-18); BUN/Creat Ratio 14.2 RATIO (10-20); Calcium,Total 7.5 mg/dL (8.5-10.1); Chloride 100 mmol/L (98-107); Creatinine, Serum 4.45 mg/dL (0.70-1.30); EST Glomerular Filtration Rate 14 mL/min (>60); Est Glom Filt Rate - Afr Amer 17 mL/min (>60); Estimated Creatinine Clearance 17.48 ml/min; Globulin 3.3 g/dL (2.2-4.2); Glucose 125 mg/dL (74-106); Phosphorus 3.7 mg/dL (2.5-4.9); Potassium 4.5 mmol/L (3.5-5.1); Protein, Total 5.6 g/dL (6.4-8.2); Sodium Level 132 mmol/L (136-145)
[2023-10-13] MEDS: 0.9% Normal Saline (1000mL) 1,000 ML 100 ML IV (07:53)
[2023-10-13 09:41] LABS: Scan Indicated on CBC? Y/N YES- FLAGS NOTED
[2023-10-13] MEDS: Ceftriaxone 1 GM/50 ML BAG IV (09:44)
[2023-10-13] MEDS: Aspirin 81 MG TAB.CHEW PO (09:44)
[2023-10-13] MEDS: Ezetimibe 10 MG Tablet PO (09:45)
--- NOTE | 2023-10-13 09:55 | CASEMGMT ---
RN CM Face to Face with patient for initial transition planning/care coordination assessment. RN CM introduced self and role at [facility]. Patient lying in bed, alert and oriented, at bedside. Patient willing to participate in assessment and is able to answer all questions appropriately. Care providers, pharmacy, and demographics verified. PCP: [facility] Specialists: Ludin, shop assistant; Zuleika, oncologist; Preferred Pharmacy: [facility] Insurance: [facility], MMO Prescription Benefit: yes Living Will/HPOA: none LNOK: Living Arrangements: Patient lives with in a single story duplex with 1 step to enter. Patient states he is independent at home. Transportation: self, DME/HHC: Patient has cane and walker at home. No previous SNF. Patient has had HHC in the past. Patient wishes to discharge home, denies need for home health at this time. Patient states he has no further needs or concerns at this time. CM to follow for discharge planning needs that may arise. Disposition Plan: Patient to discharge home with family support and follow-up plans in place. Di MARINO, RN, CM
[2023-10-13] MEDS: 0.9% Normal Saline (1000mL) 1,000 ML 200 ML IV ×3 (11:15→20:51)
[2023-10-13] MEDS: Polyethylene Glycol 3350 17 GM PACKET PO ×2 (11:19→20:50)
--- NOTE | 2023-10-13 11:45 | PCM.PN.HOSP ---
Subjective Subjective Has some abdominal pain and is still tachycardic making very little urine. He says that he feels slightly better than when he came in just because of the IV fluids that he has received Objective Data Objective Data Vital Signs: Vital Signs Temp Pulse Resp BP Pulse Ox O2 Del Method 98.4 F 115 H 26 H 120/84 H 98 Room Air 10/13/23 11:00 10/13/23 11:00 10/13/23 11:00 10/13/23 11:00 10/13/23 11:00 10/13/23 11:00 Oxygen Delivery Method Room Air Weight: 200 lb 13.458 oz Body Mass Index (BMI) 29.6 Intake & Output: Intake and Output for Last 24 Hours 10/12/23 10/13/23 10/14/23 03:59 03:59 03:59 Intake Total 3148.33 / 3148.33 1601.12 / 1601.12 Output Total 0 / 0 20 / 20 Balance 3148.33 / 3148.33 1581.12 / 1581.12 Lab / Micro Data 10/13/23 06:14 10/13/23 06:14 Labs: Laboratory Results - last 24 hr 10/12/23 16:30: WBC 9.4, RBC 5.51, Hgb 14.7, Hct 45.4, MCV 82.4, MCH 26.7 L, MCHC 32.4, RDW Std Deviation 44.2 H, RDW Coeff of Marcos 14.6, Plt Count 26 L*, MPV 11.8, Immature Gran % (Auto) 0.600, Neut % (Auto) 94.2 H, Lymph % (Auto) 1.6 L, [place] % (Auto) 3.3, Eos % (Auto) 0.0, Baso % (Auto) 0.3, Absolute Neuts (auto) 8.8 H, Absolute Lymphs (auto) 0.15 L, Nucleated RBC % 0, Differential Comment SEE COMMENT, Diff Path Review Viola fagan, Platelet Estimate MKD DEC, RBC Morphology N CHROM, Anisocytosis RARE, Microcytosis RARE, Ovalocytes RARE, PT 17.6 H, INR 1.5, APTT 37.8 H, Sodium 131 L, Potassium 4.0, Chloride 98, Carbon Dioxide 18.0 L, Anion Gap 15, BUN 52 H, Creatinine 3.54 H, Estim Creat Clear Calc 22.26, Est GFR (MDRD) Af Amer 22 L, Est GFR (MDRD) Non-Af 18 L, BUN/Creatinine Ratio 14.7, Glucose 140 H, Lactic Acid 3.5 H*, Calcium 8.4 L, Total Bilirubin 2.30 H, AST 70 H, ALT 32, Alkaline Phosphatase 67, Total Protein 6.4, Albumin 2.7 L, Globulin 3.7, Albumin/Globulin Ratio 0.7 L 10/12/23 16:41: Urine Color Yellow, Urine Clarity Cloudy, Urine pH 6.0, Ur Specific [place] 1.020, Urine Protein 100 H, Urine Glucose (UA) Normal, Urine Ketones Negative, Urine Occult Blood 250 H, Urine Nitrite Negative, Urine Bilirubin Negative, Urine Urobilinogen Normal, Ur Leukocyte Esterase 100 H, Urine RBC 50-100 SEEN, Urine WBC 10-25 SEEN, Ur Squamous Epith Cells 0-5 SEEN, Amorphous Sediment 2+ URATE, Urine Bacteria 2+, Fine Granular Casts 0-5 SEEN, RBC Casts 0-5 SEEN, Urine Mucus RARE 10/12/23 21:52: Lactic Acid 2.2 H* 10/13/23 06:14: WBC 7.6, RBC 4.53 L, Hgb 12.2 L, Hct 37.9 L, MCV 83.7, MCH 26.9 L, MCHC 32.2, RDW Std Deviation 46.1 H, RDW Coeff of Marcos 15.3 H, Plt Count 25 L*, MPV TNP, Diff Path Review August, Sodium 132 L, Potassium 4.5, Chloride 100, Carbon Dioxide 21.0, Anion Gap 11, BUN 63 H, Creatinine 4.45 H, Estim Creat Clear Calc 17.48, Est GFR (MDRD) Af Amer 17 L, Est GFR (MDRD) Non-Af 14 L, BUN/Creatinine Ratio 14.2, Glucose 125 H, Calcium 7.5 L, Phosphorus 3.7, Magnesium 2.0, Total Bilirubin 1.00, AST 49 H, ALT 28, Alkaline Phosphatase 52, Total Protein 5.6 L, Albumin 2.3 L, Globulin 3.3, Albumin/Globulin Ratio 0.7 L Micro: Microbiology 10/12/23 16:41 Urine Catheter - Cantrell Urine Culture - Preliminary Streptococcus group G 10/12/23 16:30 Blood Culture (Wb) - Venous Blood Culture - Preliminary 10/12/23 16:30 Blood Culture (Wb) - Venous Bacteria Detection (PCR) - Final Strep not Strep pneumo 10/12/23 16:30 Blood Culture (Wb) - Venous Blood Culture - Preliminary ABG Data ABG results: ABG 10/12/23 23:32 Specimen Type ART Sample Site L Radial pH 7.44 Bicarbonate Actual 15.1 L Total CO2 16 Base Excess -9 L O2 Saturation 95 O2 % 21.0 ABG pCO2 22.4 L ABG pO2 72 L Bhavesh Test Positive O2 Delivery Device Room Air Vent Mode Not entered Radiography Diagnostic Testing: Radiology Impression Chest X-Ray 10/12/23 16:28 IMPRESSION: 1. Small bilateral pleural effusions with bibasilar atelectasis. 2. Cardiomegaly. Electronically Signed: Rios Rosario MD at 17:11 EDT , Chest X-Ray 10/12/23 23:25 IMPRESSION: 1. No significant change since previous exam. 2. Cardiomegaly. 3. Persistent moderate bilateral pleural effusions and atelectasis in the lower lobes. Electronically Signed: Laci Crandall MD at 0:57 EDT , Physical Exam Narrative General: Alert, Oriented x3, Cooperative, No apparent distress HEENT: Atraumatic, PERRLA, EOMI, Normocephalic Oral: Moist Mucosa Neck: Supple, No JVD Lungs: Diminished, Normal air movement, No rhonchi, No wheeze, No rales Cardiovascular: Tachycardic, Regular Rhythm, Normal S1, Normal S2, No murmurs Abdomen: Soft, mildly tender, Non-Distended, No Hepato-splenomegaly Extremities: No edema, Capillary Refill Less than 3 Seconds Skin: No rashes, No breakdown Musculoskeletal: No Tenderness to Palpation of Joints or Extremities Neurological: No focal neurological deficits, Motor Exam 5/5 strength throughout, Sensory exam intact to light touch and pain Psych/Mental Status: Flat Assessment & Plan Assessment/Plan (1) Sepsis: (2) Acute kidney injury: PLAN: Plan 1. Sepsis secondary to UTI as well as bacteremia from Streptococcus with an LEELA and thrombocytopenia ? Continue with Rocephin ? Urine culture and blood culture are pending, preliminarily demonstrates Streptococcus ? Continue with aggressive IV fluid hydration ? Metabolic encephalopathy has resolved 2. Essential HTN/HLD/CAD status post CABG and stent ? Will hold his blood pressure medications secondary to his sepsis ? Continue with aspirin and statin ? Recent echo with normal EF 3. GERD ? Stable ? Continue with PPI DVT: SCDs Charges/Coding Visit Charges Inpatient E&M: 50407 Subs Hosp L2
[2023-10-13 17:02] LABS: Anion Gap 10 (5-15); BUN 81 mg/dL (7-18); BUN/Creat Ratio 16.2 RATIO (10-20); Calcium,Total 7.6 mg/dL (8.5-10.1); Chloride 102 mmol/L (98-107); Creatinine, Serum 4.99 mg/dL (0.70-1.30); EST Glomerular Filtration Rate 12 mL/min (>60); Est Glom Filt Rate - Afr Amer 15 mL/min (>60); Estimated Creatinine Clearance 15.58 ml/min; Glucose 122 mg/dL (74-106); Potassium 4.4 mmol/L (3.5-5.1); Sodium Level 131 mmol/L (136-145)
[2023-10-13 19:08] LABS: International Normalized Ratio 1.2; Prothrombin Time (Protime)PT. 15.4 SECONDS (11.7-14.9)
[2023-10-13 19:09] LABS: Partial Thromboplast Time 36.3 Seconds (24.1-36.2)
[2023-10-13 19:14] LABS: Fibrinogen 540 mg/dl (203-444)
[2023-10-13 22:25] LABS: Urine Chloride 36 mmol/L (Not Establ.); Urine Sodium 22 mmol/L (Not Establ.)
[2023-10-14] VITALS (10 sets, daily range): BP systolic 127–147; BP diastolic 87–94; PULSE 103–115; RESP 21–97; TEMP 36.2–36.8; O2SAT 20–98; BMI 31.4
[2023-10-14] MEDS: 0.9% Normal Saline (1000mL) 1,000 ML 200 ML IV ×2 (01:49→09:26)
[2023-10-14 05:53] LABS: Absolute Lymphocyte Count 0.26 X10^3/uL (0.83-4.51); Absolute Neutrophil Count 7.2 X10^3/uL (2.0-7.7); Basophil# 0.02 X10^3/uL; Basophil% 0.2 % (0-1); Hemoglobin 11.3 g/dL (13.0-16.5); Lymphocyte # 0.26 X10^3/ul (0.83-4.51); Lymphocyte % 3.2 % (19-41); Mean Corp Hgb Conc 33.2 g/dL (32-36); Mean Corpuscular Hgb 27.4 pg (27.0-32.0); Mean Corpuscular Volume 82.3 fL (80-94); Monocyte# 0.51 X10^3/uL; Monocyte% 6.3 % (0-10); NRBC Flagged by Analyzer 0 % (0-5); Neutrophil # 7.23 X10^3/uL (2.7-7.7); Neutrophil % 89.4 % (47-70); POSITIVE COUNT YES; POSITIVE DIFFERENTIAL YES; RBC Distribution Width CV 15.6 % (11.6-14.6); RBC Distribution Width SD 46.8 fl (35.1-43.9); Red Blood Count 4.13 M/mm3 (4.6-6.2); White Blood Count 8.1 K/mm3 (4.4-11.0)
[2023-10-14 06:01] LABS: Differential Indicated SCAN CRITERIA MET; Platelet Count 20 K/mm3 (150-450)
[2023-10-14 06:21] LABS: Anion Gap 11 (5-15); BUN 91 mg/dL (7-18); BUN/Creat Ratio 16.4 RATIO (10-20); Calcium,Total 7.5 mg/dL (8.5-10.1); Chloride 104 mmol/L (98-107); Creatinine, Serum 5.55 mg/dL (0.70-1.30); EST Glomerular Filtration Rate 11 mL/min (>60); Est Glom Filt Rate - Afr Amer 13 mL/min (>60); Glucose 114 mg/dL (74-106); Potassium 4.4 mmol/L (3.5-5.1); Sodium Level 131 mmol/L (136-145)
--- NOTE | 2023-10-14 06:53 | CT_ITS ---
STUDY: CT BRAIN WITHOUT CONTRAST REASON FOR EXAM: Male, 68 years old. Rule out hemorrhage RADIATION DOSAGE (If Supplied By Facility): CTDIvol = ( 44.99 ) mGy, DLP = ( 796.11 ) mGycm TECHNIQUE: Transaxial CT imaging of the brain was performed without administration of intravenous contrast material. Individualized dose optimization techniques were used for this CT. COMPARISON: None. FINDINGS: Normal soft tissue structures. Normal calvarium. Normal size ventricles and extra-axial spaces for the patient''s age. There are areas of decreased attenuation within the white matter tracts of the supratentorial brain, consistent with microvascular disease changes. Normal basal ganglia and thalami. Normal brainstem. Normal cerebellum. Moderate atherosclerotic calcification of cavernous ICA and vertebral and basilar arteries noted. There is no intracranial hemorrhage. There are no findings of an acute ischemic infarction. There is mucoperiosteal inflammatory disease of the paranasal sinuses consistent with mild chronic sinusitis. CT/Brain/Head without Contrast IMPRESSION: 1. Chronic involutional changes of the brain. Electronically Signed: Robert Forrester MD at 8:37 EDT ,
[2023-10-14] MEDS: Senna/Docusate Sodium 1 Tablet 2 TABLET PO ×2 (09:24→21:28)
[2023-10-14] MEDS: Polyethylene Glycol 3350 17 GM PACKET PO ×2 (09:24→21:29)
[2023-10-14] MEDS: Pantoprazole Sodium 40 MG Tablet PO ×2 (09:24→21:29)
[2023-10-14] MEDS: Ezetimibe 10 MG Tablet PO (09:24)
[2023-10-14] MEDS: Acetaminophen 325 MG Tablet 650 MG PO (09:24)
[2023-10-14] MEDS: Ceftriaxone 1 GM/50 ML BAG IV (09:38)
[2023-10-14 09:45] LABS: Differential Comment SCANNED; Platelet Estimate MKD DEC (ADEQ)
--- NOTE | 2023-10-14 10:02 | NURSING ---
updated patient's about patient status and plan of care. no further questions at this time.
--- NOTE | 2023-10-14 10:56 | PCM.PN.HOSP ---
Subjective Subjective More alert today than he was yesterday morning Objective Data Objective Data Vital Signs: Vital Signs Temp Pulse Resp BP Pulse Ox O2 Del Method 97.8 F 103 H 21 H 134/91 H 97 Room Air 10/14/23 04:00 10/14/23 04:00 10/14/23 04:00 10/14/23 04:00 10/14/23 07:20 10/14/23 07:20 Oxygen Delivery Method Room Air Weight: 212 lb 11.937 oz Body Mass Index (BMI) 31.4 Intake & Output: Intake and Output for Last 24 Hours 10/13/23 10/14/23 10/15/23 03:59 03:59 03:59 Intake Total 3148.33 / 3148.33 5227.78 / 5227.78 1290 / 1290 Output Total 0 / 0 40 / 40 50 / 50 Balance 3148.33 / 3148.33 5187.78 / 5187.78 1240 / 1240 Lab / Micro Data 10/14/23 04:40 10/14/23 04:40 Labs: Laboratory Results - last 24 hr 10/13/23 16:35: Sodium 131 L, Potassium 4.4, Chloride 102, Carbon Dioxide 19.0 L, Anion Gap 10, BUN 81 H, Creatinine 4.99 H, Estim Creat Clear Calc 15.58, Est GFR (MDRD) Af Amer 15 L, Est GFR (MDRD) Non-Af 12 L, BUN/Creatinine Ratio 16.2, Glucose 122 H, Calcium 7.6 L 10/13/23 18:40: PT 15.4 H, INR 1.2, APTT 36.3 H, Fibrinogen 540 H 10/13/23 22:10: Ur Random Sodium 22, Urine Potassium 57.0, Urine Chloride 36 10/14/23 04:40: WBC 8.1, RBC 4.13 L, Hgb 11.3 L, Hct 34.0 L, MCV 82.3, MCH 27.4, MCHC 33.2, RDW Std Deviation 46.8 H, RDW Coeff of Marcos 15.6 H, Plt Count 20 L*, MPV TNP, Immature Gran % (Auto) 0.900, Neut % (Auto) 89.4 H, Lymph % (Auto) 3.2 L, [place] % (Auto) 6.3, Eos % (Auto) 0.0, Baso % (Auto) 0.2, Absolute Neuts (auto) 7.2, Absolute Lymphs (auto) 0.26 L, Nucleated RBC % 0, Differential Comment SCANNED, Diff Path Review May foll, Platelet Estimate MKD DEC, Sodium 131 L, Potassium 4.4, Chloride 104, Carbon Dioxide 16.0 L, Anion Gap 11, BUN 91 H, Creatinine 5.55 H, Estim Creat Clear Calc 14.40, Est GFR (MDRD) Af Amer 13 L, Est GFR (MDRD) Non-Af 11 L, BUN/Creatinine Ratio 16.4, Glucose 114 H, Calcium 7.5 L Micro: Microbiology 10/12/23 16:41 Urine Catheter - Cantrell Urine Culture - Final Streptococcus group G 10/12/23 16:30 Blood Culture (Wb) - Venous Bacteria Detection (PCR) - Final Strep not Strep pneumo 10/12/23 16:30 Blood Culture (Wb) - Venous Blood Culture - Preliminary Streptococcus group G 10/12/23 16:30 Blood Culture (Wb) - Venous Blood Culture - Preliminary Streptococcus group G Radiography Diagnostic Testing: Radiology Impression Brain CT 10/14/23 06:53 IMPRESSION: 1. Chronic involutional changes of the brain. Electronically Signed: Robert Forrester MD at 8:37 EDT Reading Location ID and State: [facility] / [place] , Service support , Physical Exam Narrative General: Alert, Oriented x3, Cooperative, No apparent distress HEENT: Atraumatic, PERRLA, EOMI, Normocephalic Oral: Moist Mucosa Neck: Supple, No JVD Lungs: Diminished, Normal air movement, No rhonchi, No wheeze, No rales Cardiovascular: Tachycardic, Regular Rhythm, Normal S1, Normal S2, No murmurs Abdomen: Soft, mildly tender, Non-Distended, No Hepato-splenomegaly Extremities: Edema, Capillary Refill Less than 3 Seconds Skin: No rashes, No breakdown Musculoskeletal: No Tenderness to Palpation of Joints or Extremities Neurological: No focal neurological deficits, Motor Exam 5/5 strength throughout, Sensory exam intact to light touch and pain Psych/Mental Status: Normal affect Assessment & Plan Assessment/Plan (1) Sepsis: (2) Acute kidney injury: PLAN: Plan 1. Sepsis secondary to UTI as well as bacteremia from Streptococcus with an LEELA and thrombocytopenia ? Continue with Rocephin ? Urine and blood cultures with Streptococcus, will recheck blood cultures today to monitor for clearance ? Continue with aggressive IV fluid hydration until he is requiring oxygen ? Will consult nephrology given his continued worsening renal failure will likely need dialysis secondary to being an uric with uremia with a BUN of 91 today ? Metabolic encephalopathy has resolved 2. Essential HTN/HLD/CAD status post CABG and stent ? Will hold his blood pressure medications secondary to his sepsis ? Continue with statin discontinue aspirin given the continuation of his thrombocytopenia and his uremia ? Recent echo with normal EF 3. GERD ? Stable ? Continue with PPI DVT: SCDs Charges/Coding Visit Charges Inpatient E&M: 21455 Subs Hosp L2
[2023-10-14] MEDS: oxyCODONE 5 MG Tablet PO (13:43)
--- NOTE | 2023-10-14 15:32 | PCM.CONS.R ---
Assessment & Plan Assessment/Plan (1) Acute kidney injury: PLAN: Acute kidney injury in the setting of Streptococcus group G urosepsis. Sounds like the onset of acute kidney failure coincided with the onset of her illness, so postinfectious GN would certainly be too early. However, superinfections (usually staphylococcal) are possibilities. I certainly cannot ignore proteinuria, hematuria, and presence of RBC casts. Low urine sodium does not rule out glomerulonephritis. On the other hand in the situation of dropping platelets, I have to make sure there is no HUS. That peripheral smear did not report any schistocytes On the other hand, ATN is still high on the list of differential PLAN: Plan Measure proteinuria, check CPK, check LDH, check C3-C4 Proceed with IV fluids HPI Consult Data Date of Consult: 10/14/23 HPI Narrative Reason for Consultation: Acute kidney injury HPI Narrative: NICKO ROSALES, is a 68 M who has normal underlying kidney function and presented to emergency room on 10 October with what he thought would be kidney stone. He described it as back pain and it was similar to his experience in the past. He states he has been passing kidney stones probably once a month for the last 20 years. That is when for the first time he had bump in his creatinine to 1.7. Because he did not get better he came back to emergency room on Sunday and his creatinine was already 3, it went up to 4 yesterday and up to 5.5 today. Interestingly he also has significant evolving thrombocytopenia with the most recent platelets being 20 as of today. He is blood cultures and urine cultures grew Streptococcus. While his total white count is not elevated he has significant shift to the left. Urinalysis had some protein and blood in it and reportedly some bacteria's and RBC casts. Urine sodium is low. He also complains some extensive muscle ache throughout his body. Cantrell catheter is placed with small amount of dark appearing urine. No hydronephrosis by CAT scan [facility] Medical History Adenocarcinoma of esophagus LEELA (acute kidney injury) Non-smoker Esophageal carcinoma Atherosclerosis of coronary artery of [place] heart without angina pectoris 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 Essential (primary) hypertension Non-rheumatic aortic stenosis Syncope and collapse Hyperlipidemia Atherosclerotic heart disease of [place] coronary artery with other forms of angina pectoris Encounter for long-term current use of high risk medication abnormal stress test Angina pectoris Exertional chest pain URI (upper respiratory infection) Home Medications ?Medication ?Instructions ?Recorded ?Last Taken ?Type aspirin 81 mg chewable tablet 81 mg PO DAILY@0800 HEALTH 01/23/14 10/10/23 History pantoprazole 40 mg tablet,delayed 40 mg PO BID GERD 03/24/21 10/10/23 History release (Protonix) amlodipine 10 mg tablet 10 mg PO DAILY BP #90 tabs 05/15/22 10/10/23 Rx atorvastatin 80 mg tablet 80 mg PO QHS CHOLESTEROL #90 tabs 05/15/22 10/10/23 Rx ezetimibe 10 mg tablet 10 mg PO DAILY CHOLESTEROL #90 tabs 05/15/22 10/10/23 Rx metoprolol tartrate 25 mg tablet 25 mg PO BID HEART #180 tabs 05/15/22 10/10/23 Rx nitroglycerin 0.4 mg sublingual 0.4 mg sublingual Q5M PRN Chest 05/15/22 Unknown Rx tablet Pain #25 tabs furosemide 20 mg tablet 20 mg PO DAILY heart #14 tabs 09/11/23 10/10/23 Rx hydrocodone-acetaminophen 5-325mg 1 tab PO Q4H PRN PRN Pain 4 days 09/11/23 10/10/23 Rx 5mg-325mg #20 TABLETS nystatin 100,000 unit/gram topical 1 applic topical BID right chest 09/11/23 10/10/23 History cream ondansetron HCl 8 mg tablet 8 mg PO Q8H PRN PRN nausea/vomiting 09/11/23 10/10/23 History potassium chloride 20 mEq 20 meq PO BID supplement #20 tabs 09/11/23 10/10/23 Rx tablet,extended release hydrocodone-acetaminophen 5-325mg 1 tab PO Q4H PRN PRN Pain 3 days 10/11/23 10/10/23 Rx 5mg-325mg #10 TABLETS ondansetron 4 mg disintegrating 4 mg PO Q8H PRN PRN Nausea #10 tabs 10/11/23 10/10/23 Rx tablet Allergy/AdvReac Type Severity Reaction Status Date / Time No Known Allergies Allergy Verified 10/12/23 16:11 Family History Father Heart disease Myocardial infarction Hypertension Brother Hypertension Sister Heart disease Myocardial infarction Surgical History History of aortic valve replacement (03/03/19) History of coronary artery stent placement (12/31/18) H/O coronary artery bypass surgery (09/18/02) History of tonsillectomy History of hernia repair Social History Smoking Status: Never smoker alcohol intake: never substance use type: does not use caffeine: No what type of physical activity do you participate in: walking frequency: daily ROS Constitutional Constitutional: Reports chills, fever(s), malaise and weakness Eyes Eyes: Denies blindness, blurry vision, change in vision, discongugate gaze, double vision, dry eyes or loss of vision ENT HEENT: Reports dry mouth Cardiovascular Cardiovascular: Reports diaphoresis Respiratory/Chest Respiratory/Chest: Denies dry cough, dyspnea on exertion, hemoptysis, portable oxygen @ home, productive cough, shortness of breath at rest or wheezing Gastrointestinal Gastrointestinal: Denies abdominal pain, anorexia, diarrhea, dry heaves, hematemesis, hematochezia, melena, nausea, rectal bleeding, vomiting or weight changes Genitourinary Genitourinary: Reports dysuria, flank pain and hematuria Musculoskeletal Musculoskeletal: Reports myalgias Integumentary Integumentary: Denies dry skin, erythema, jaundice, lesions, pruritus, rash or skin ulcer Neurologic Neurologic: Denies abnormal gait, burning sensations, confusion, focal weakness, frequent falls, headache(s), numbness, restless legs, seizures, syncope, tremor(s) or weakness Psychiatric Psychiatric: Denies anxiety, confusion, depression or hallucinations Physical Exam Const alert, oriented x3, no apparent distress and average body habitus General Appearance: well developed Orientation / Consciousness: oriented to person, oriented to place and oriented to time HEENT normocephalic Head and Scalp: atraumatic Neck no lymphadenopathy Resp no use of accessory muscles Cardio regular rate Cardio Narrative: tachycardia GI non-tender Auscultation: normoactive bowel sounds Palpation: soft Bladder / Kidney Exam: catheter in place Extremity no clubbing, cyanosis or edema Skin no rashes or lesions noted Neuro Sensorium / Orientation: awake and alert Psych cooperative Lab / Micro Data Attestation: I reviewed the patient's lab results. 10/14/23 04:40 10/14/23 04:40 Labs: Laboratory Results - last 24 hr 10/13/23 16:35: Sodium 131 L, Potassium 4.4, Chloride 102, Carbon Dioxide 19.0 L, Anion Gap 10, BUN 81 H, Creatinine 4.99 H, Estim Creat Clear Calc 15.58, Est GFR (MDRD) Af Amer 15 L, Est GFR (MDRD) Non-Af 12 L, BUN/Creatinine Ratio 16.2, Glucose 122 H, Calcium 7.6 L 10/13/23 18:40: PT 15.4 H, INR 1.2, APTT 36.3 H, Fibrinogen 540 H 10/13/23 22:10: Ur Random Sodium 22, Urine Potassium 57.0, Urine Chloride 36 10/14/23 04:40: WBC 8.1, RBC 4.13 L, Hgb 11.3 L, Hct 34.0 L, MCV 82.3, MCH 27.4, MCHC 33.2, RDW Std Deviation 46.8 H, RDW Coeff of Marcos 15.6 H, Plt Count 20 L*, MPV TNP, Immature Gran % (Auto) 0.900, Neut % (Auto) 89.4 H, Lymph % (Auto) 3.2 L, [place] % (Auto) 6.3, Eos % (Auto) 0.0, Baso % (Auto) 0.2, Absolute Neuts (auto) 7.2, Absolute Lymphs (auto) 0.26 L, Nucleated RBC % 0, Differential Comment SCANNED, Diff Path Review May foll, Platelet Estimate MKD DEC, Sodium 131 L, Potassium 4.4, Chloride 104, Carbon Dioxide 16.0 L, Anion Gap 11, BUN 91 H, Creatinine 5.55 H, Estim Creat Clear Calc 14.40, Est GFR (MDRD) Af Amer 13 L, Est GFR (MDRD) Non-Af 11 L, BUN/Creatinine Ratio 16.4, Glucose 114 H, Calcium 7.5 L Micro: Microbiology 10/12/23 16:41 Urine Catheter - Cantrell Urine Culture - Final Streptococcus group G 10/12/23 16:30 Blood Culture (Wb) - Venous Bacteria Detection (PCR) - Final Strep not Strep pneumo 10/12/23 16:30 Blood Culture (Wb) - Venous Blood Culture - Preliminary Streptococcus group G 10/12/23 16:30 Blood Culture (Wb) - Venous Blood Culture - Preliminary Streptococcus group G Imaging Radiology Impression Brain CT 10/14/23 06:53 IMPRESSION: 1. Chronic involutional changes of the brain. Electronically Signed: Robert Forrester MD at 8:37 EDT ,
[2023-10-14 16:05] LABS: CPK Total, Creatine Kinase 117 U/L (39-308)
[2023-10-14] MEDS: Lactated Ringers 1,000 ML 100 ML IV (17:34)
[2023-10-14 20:21] LABS: LDH 606 U/L (87-241)
[2023-10-14] MEDS: Atorvastatin Calcium 80 MG Tablet PO (21:28)
[2023-10-14] MEDS: Metoprolol Tartrate 25 MG Tablet PO (21:29)
--- NOTE | 2023-10-14 23:55 | EKG12_ITS ---
Test Reason : TACHY Blood Pressure : / mmHG Vent. Rate : 124 BPM Atrial Rate : 129 BPM P-R Int : 000 ms QRS Dur : 100 ms QT Int : 330 ms P-R-T Axes : 000 017 033 degrees QTc Int : 474 ms Sinus tachycardia with 1st degree A-V block Abnormal ECG Confirmed by Laci Mann ([id number]), staff editor CHRISTIANO OWENS ([id number]) on 10/16/2023 7:45:33 AM Referred By: Confirmed By:Laci Mann
[2023-10-15] VITALS (26 sets, daily range): BP systolic 93–209; BP diastolic 67–93; PULSE 86–128; RESP 14–32; TEMP 36.4–37; O2SAT 93–100; BMI 31.5; BMI 31.2
[2023-10-15] MEDS: 0.9% Normal Saline (500mL Bag) 500 ML 999 ML IV (01:00)
[2023-10-15] MEDS: Lactated Ringers 1,000 ML 100 ML IV (04:44)
[2023-10-15 05:06] LABS: Protein, Urine (Random) 578.3 mg/dL (<11.9); Protein:Creat Ratio 4664 mg/g CRE (0-200)
[2023-10-15 06:22] LABS: Absolute Lymphocyte Count 0.22 X10^3/uL (0.83-4.51); Absolute Neutrophil Count 7.3 X10^3/uL (2.0-7.7); Basophil# 0.02 X10^3/uL; Basophil% 0.2 % (0-1); Hematocrit 34.3 % (40-54); Hemoglobin 11.5 g/dL (13.0-16.5); Lymphocyte # 0.22 X10^3/ul (0.83-4.51); Lymphocyte % 2.6 % (19-41); Mean Corp Hgb Conc 33.5 g/dL (32-36); Mean Corpuscular Hgb 27.2 pg (27.0-32.0); Mean Corpuscular Volume 81.1 fL (80-94); Monocyte# 0.72 X10^3/uL; Monocyte% 8.6 % (0-10); NRBC Flagged by Analyzer 0 % (0-5); Neutrophil # 7.31 X10^3/uL (2.7-7.7); Neutrophil % 87.1 % (47-70); POSITIVE COUNT YES; POSITIVE DIFFERENTIAL YES; RBC Distribution Width SD 47.7 fl (35.1-43.9); Red Blood Count 4.23 M/mm3 (4.6-6.2); White Blood Count 8.4 K/mm3 (4.4-11.0)
[2023-10-15 06:35] LABS: Platelet Count 27 K/mm3 (150-450)
[2023-10-15 06:36] LABS: Differential Indicated SCAN CRITERIA MET
[2023-10-15 06:40] LABS: Anion Gap 12 (5-15); BUN 122 mg/dL (7-18); BUN/Creat Ratio 17.6 RATIO (10-20); Calcium,Total 7.4 mg/dL (8.5-10.1); Chloride 105 mmol/L (98-107); Creatinine, Serum 6.93 mg/dL (0.70-1.30); EST Glomerular Filtration Rate 8 mL/min (>60); Est Glom Filt Rate - Afr Amer 10 mL/min (>60); Estimated Creatinine Clearance 11.53 ml/min; Glucose 106 mg/dL (74-106); Potassium 4.6 mmol/L (3.5-5.1); Sodium Level 131 mmol/L (136-145)
--- NOTE | 2023-10-15 08:41 | PCM.PN.HOSP ---
Reason for Visit Reason for Visit: Diagnoses Sepsis, unspecified organism (10/12/23) Thrombocytopenia, unspecified (10/12/23) Acute kidney failure, unspecified (10/12/23) Unspecified jaundice (10/12/23) Presence of aortocoronary bypass graft (10/12/23) Presence of prosthetic heart valve (10/12/23) Subjective Subjective Patient is a 68-year-old gentleman admitted with right flank pain as well as altered mental status. Was found to have sepsis secondary to UTI as well as acute kidney injury admitted to a monitored bed for further management Objective Data Objective Data Vital Signs: Vital Signs Temp Pulse Resp BP Pulse Ox O2 Del Method 98.3 F 116 H 24 H 124/88 H 96 Room Air 10/15/23 06:00 10/15/23 06:00 10/15/23 06:00 10/15/23 06:00 10/15/23 06:00 10/15/23 07:33 Oxygen Delivery Method Room Air Weight: 96.8 kg Body Mass Index (BMI) 31.5 Intake & Output: Intake and Output for Last 24 Hours 10/13/23 10/14/23 10/15/23 23:59 23:59 23:59 Intake Total 4054.45 / 4534.45 4278.33 / 4638.33 2100 / 2100 Output Total 40 / 40 55 / 55 40 / 40 Balance 4014.45 / 4494.45 4223.33 / 4583.33 0 / 2060 Lab / Micro Data 10/15/23 05:37 10/15/23 05:37 Labs: Laboratory Results - last 24 hr 10/14/23 04:25: U Random Total Protein 578.3 H, Urine Creatinine 124.00, Protein/Creatinin Ratio 4664 H 10/14/23 04:40: Differential Comment SCANNED, Diff Path Review August rylan, Platelet Estimate MKD 10/14/23 11:25: Lactate Dehydrogenase 606 H, Total Creatine Kinase 117, C-React Prot Ext Range 266.00 H 10/15/23 05:37: WBC 8.4, RBC 4.23 L, Hgb 11.5 L, Hct 34.3 L, MCV 81.1, MCH 27.2, MCHC 33.5, RDW Std Deviation 47.7 H, RDW Coeff of Marcos 16.0 H, Plt Count 27 L*, MPV TNP, Immature Gran % (Auto) 1.500 H, Neut % (Auto) 87.1 H, Lymph % (Auto) 2.6 L, [place] % (Auto) 8.6, Eos % (Auto) 0.0, Baso % (Auto) 0.2, Absolute Neuts (auto) 7.3, Absolute Lymphs (auto) 0.22 L, Nucleated RBC % 0, Sodium 131 L, Potassium 4.6, Chloride 105, Carbon Dioxide 14.0 L, Anion Gap 12, BUN 122 H*, Creatinine 6.93 H, Estim Creat Clear Calc 11.53, Est GFR (MDRD) Af Amer 10 L, Est GFR (MDRD) Non-Af 8 L, BUN/Creatinine Ratio 17.6, Glucose 106, Calcium 7.4 L Micro: Microbiology 10/12/23 16:41 Urine Catheter - Cantrell Urine Culture - Final Streptococcus group G 10/12/23 16:30 Blood Culture (Wb) - Venous Bacteria Detection (PCR) - Final Strep not Strep pneumo 10/12/23 16:30 Blood Culture (Wb) - Venous Blood Culture - Preliminary Streptococcus group G 10/12/23 16:30 Blood Culture (Wb) - Venous Blood Culture - Preliminary Streptococcus group G Physical Exam Narrative GENERAL: cooperative HEENT: Atraumatic; normocephalic EYES; Anicteric, Normal Conjunctiva NECK; supple, normal thyroid, RESPIRATORY: Diminished to auscultation CARDIOVASCULAR: Regular S1 S2, GI: soft, normoactive bowel sounds, : No Renal angle tenderness; EXTREMITIES: edema, no clubbing, MUSCULOSKELETAL: no muscle wasting NEURO: Awake; no lateralizing signs. SKIN: No Rash PSYCH; Flat affect Assessment & Plan Assessment/Plan (1) Sepsis: (2) Acute kidney injury: PLAN: Plan Patient is a 68-year-old gentleman admitted with right flank pain as well as altered mental status. Was found to have sepsis secondary to UTI as well as acute kidney injury admitted to a monitored bed for further management 1. Sepsis secondary to UTI with bacteremia from Streptococcus. ? Patient managed with aggressive IV fluid resuscitation. Protocol in addition to broad-spectrum antibiotic therapy 2. Acute kidney injury ? Suspected to be secondary to sepsis with possible ATN. Admitted to the intensive care unit managed with IV fluids per protocol with patient being thrombocytopenic HUS was entertained however peripheral smear did not reveal any schistocytes. Patient has been seen in consultation by nephrology. With patient worsening kidney function patient may end up needing dialysis prior to discharge 3. Coronary artery disease ? With previous CABG and subsequent stent placement 4. Essential hypertension ? Patient antihypertensives held on admission given his relatively low blood pressure on admission 5. Dyslipidemia -Patient is on statin therapy in addition to Zetia, continued at home dose 6. Thrombocytopenia ? Suspected to be secondary to sepsis ? No indication for platelet transfusion at this point we will continue to monitor trend 7. GERD ? On PPI 8. DVT prophylaxis ? Bilateral SCDs Time spent in the patient's overall evaluation,decision-making process, review of diagnostic data, adjustment of management, discussion with other providers, nursing nursing and ancillary staff involved in patient's care documentation, 52 Minutes Charges/Coding Visit Charges Inpatient E&M: 03279 Subs Hosp L3
--- NOTE | 2023-10-15 09:28 | WOUNDNOTE ---
wound photo: back
[2023-10-15] MEDS: Metoprolol Tartrate 25 MG Tablet PO ×2 (09:44→20:24)
[2023-10-15] MEDS: Senna/Docusate Sodium 1 Tablet 2 TABLET PO ×2 (09:45→20:25)
[2023-10-15] MEDS: Ezetimibe 10 MG Tablet PO (09:45)
[2023-10-15] MEDS: Pantoprazole Sodium 40 MG Tablet PO ×2 (09:45→20:24)
[2023-10-15] MEDS: Menthol/Lanolin/Calamine/Znox 113 GM Tube 1 APPLIC TOPICAL ×2 (09:45→20:26)
[2023-10-15] MEDS: Polyethylene Glycol 3350 17 GM PACKET PO ×2 (09:45→20:26)
[2023-10-15] MEDS: Ceftriaxone 1 GM/50 ML BAG IV (09:52)
[2023-10-15 10:06] LABS: Platelet Estimate MKD DEC (ADEQ)
[2023-10-15] MEDS: oxyCODONE 5 MG Tablet PO ×2 (10:40→20:25)
--- NOTE | 2023-10-15 11:17 | PCM.PN.REN ---
Documented by User: GREG Rutledge 10/15/23 11:44 Subjective Subjective Resting in bed, and daughter at bedside. Patient complains for feeling puffy. States appetite poor. Not much urine output overnight Objective Data Objective Data Vital Signs: Vital Signs Temp Pulse Resp BP Pulse Ox O2 Del Method 98.1 F 122 H 26 H 125/93 H 96 Room Air 10/15/23 10:49 10/15/23 10:49 10/15/23 10:49 10/15/23 10:49 10/15/23 11:12 10/15/23 11:12 Oxygen Delivery Method Room Air Weight: 96.8 kg Body Mass Index (BMI) 31.5 Intake & Output: Intake and Output for Last 24 Hours 10/13/23 10/14/23 10/15/23 23:59 23:59 23:59 Intake Total 4054.45 / 4534.45 4278.33 / 4638.33 2150 / 2150 Output Total 40 / 40 55 / 55 40 / 40 Balance 4014.45 / 4494.45 4223.33 / 4583.33 2110 / 2110 Lab / Micro Data 10/15/23 05:37 10/15/23 05:37 Labs: Laboratory Results - last 24 hr 10/14/23 04:25: U Random Total Protein 578.3 H, Urine Creatinine 124.00, Protein/Creatinin Ratio 4664 H 10/14/23 11:25: Lactate Dehydrogenase 606 H, Total Creatine Kinase 117, C-React Prot Ext Range 266.00 H 10/15/23 05:37: WBC 8.4, RBC 4.23 L, Hgb 11.5 L, Hct 34.3 L, MCV 81.1, MCH 27.2, MCHC 33.5, RDW Std Deviation 47.7 H, RDW Coeff of Marcos 16.0 H, Plt Count 27 L*, MPV TNP, Immature Gran % (Auto) 1.500 H, Neut % (Auto) 87.1 H, Lymph % (Auto) 2.6 L, [place] % (Auto) 8.6, Eos % (Auto) 0.0, Baso % (Auto) 0.2, Absolute Neuts (auto) 7.3, Absolute Lymphs (auto) 0.22 L, Nucleated RBC % 0, Differential Comment COMMENT, Diff Path Review May foll, Platelet Estimate MKD DEC, Sodium 131 L, Potassium 4.6, Chloride 105, Carbon Dioxide 14.0 L, Anion Gap 12, BUN 122 H*, Creatinine 6.93 H, Estim Creat Clear Calc 11.53, Est GFR (MDRD) Af Amer 10 L, Est GFR (MDRD) Non-Af 8 L, BUN/Creatinine Ratio 17.6, Glucose 106, Calcium 7.4 L Micro: Microbiology 10/12/23 16:30 Blood Culture (Wb) - Venous Blood Culture - Final Streptococcus group G 10/12/23 16:30 Blood Culture (Wb) - Venous Bacteria Detection (PCR) - Final Strep not Strep pneumo 10/12/23 16:30 Blood Culture (Wb) - Venous Blood Culture - Final Streptococcus group G 10/12/23 16:41 Urine Catheter - Cantrell Urine Culture - Final Streptococcus group G Physical Exam Narrative Alert and orient x 3, no apparent distress S1, S2, RRR Diminished breath sounds, faint rales Abdomen soft, nontender Edema bilateral lower legs Indwelling Cantrell scant yellow urine in bag Assessment & Plan Assessment/Plan (1) Acute kidney injury: PLAN: --- Acute kidney injury in the setting of Streptococcus group G urosepsis/bacteremia with history of normal baseline creatinine. LEELA possibly from ATN versus other etiology. Workup pending - CPK 117, LDH elevated at 606, urine protein creatinine ratio 4.6 g. C3 and C4 pending -Serum creatinine 1.3 on 09/11/2023. Baseline creatinine around 1 mg/dL. On 10/11/2023 serum creatinine 1.51, 10/11 serum creatinine 3.54 and today creatinine is up to 6.93, BUN 122. Potassium 4.6, bicarb 14. Urine output yesterday documented at 55 mL. Patient has Cantrell. Patient is heading towards needing DIRECTOR WORKFORCE MANAGEMENT and discussed this at length with patient, his and daughter. Discussed risks and benefits of dialysis. Patient in agreement with hemodialysis. Will proceed with temporary hemodialysis catheter. Dialysis today over ~2.5 hours with minimal fluid removal, plan HD again tomorrow for clearance and more fluid removal. Platelet count is 27,000 today. If patient is hemodialysis dependent by time of discharge then he will need a tunneled hemodialysis line placed and outpatient hemodialysis arrangements. We will continue to monitor for renal recovery. Decrease IV fluid rate. --- Thrombocytopenia with history of normal platelet count. Platelet count 74,000 on admission and today is 27,000. Suspected secondary to sepsis --- Bacteremia and urosepsis from Streptococcus group G. On IV antibiotics. --- History of hypertension. Blood pressures were low normal on admission. Blood pressures acceptable now. He is not on any antihypertensives. Documented by User: Dr. Gaudencio Greenberg MD 10/15/23 19:18 Objective Data Lab / Micro Data 10/15/23 05:37 10/15/23 05:37 Assessment & Plan Assessment/Plan (1) Acute kidney injury: PLAN: --- Acute kidney injury in the setting of Streptococcus group G urosepsis/bacteremia with history of normal baseline creatinine. LEELA possibly from ATN versus other etiology. Workup pending - CPK 117, LDH elevated at 606, urine protein creatinine ratio 4.6 g. C3 and C4 pending -Serum creatinine 1.3 on 09/11/2023. Baseline creatinine around 1 mg/dL. On 10/11/2023 serum creatinine 1.51, 10/11 serum creatinine 3.54 and today creatinine is up to 6.93, BUN 122. Potassium 4.6, bicarb 14. Urine output yesterday documented at 55 mL. Patient has Cantrell. Patient is heading towards needing DIRECTOR WORKFORCE MANAGEMENT and discussed this at length with patient, his and daughter. Discussed risks and benefits of dialysis. Patient in agreement with hemodialysis. Will proceed with temporary hemodialysis catheter. Dialysis today over ~2.5 hours with minimal fluid removal, plan HD again tomorrow for clearance and more fluid removal. Platelet count is 27,000 today. If patient is hemodialysis dependent by time of discharge then he will need a tunneled hemodialysis line placed and outpatient hemodialysis arrangements. We will continue to monitor for renal recovery. Decrease IV fluid rate. --- Thrombocytopenia with history of normal platelet count. Platelet count 74,000 on admission and today is 27,000. Suspected secondary to sepsis --- Bacteremia and urosepsis from Streptococcus group G. On IV antibiotics. --- History of hypertension. Blood pressures were low normal on admission. Blood pressures acceptable now. He is not on any antihypertensives. Patient was seen and examined independently. Acute renal failure. Baseline creatinine normal. Progressive renal failure. Urine is fairly active with hematuria, 4.4 g of proteinuria. No hydronephrosis. Strep group G bacteremia. Complement levels are pending. Severe thrombocytopenia. LDH is elevated. Haptoglobin ordered for today. Peripheral smear does not mention schistocytes. Platelet counts are better today at 27. 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 Since his urine and blood culture positive for strep group G, we will hold off on kidney biopsy for now. Currently on antibiotics as per primary. Will plan for dialysis today. Discussed with family at bedside.
--- NOTE | 2023-10-15 11:54 | CASEMGMT ---
Social Work SW spoke w/pt about completing LW/POA. Pt does want to complete POA as his daughter and are at the bedside. Pt completed POA for Healthcare, pt named his Kenisha as POA. LW deferred at this time. SW gave pt's the original and copies, and a copy was placed on the chart. Pt and family made aware of SW availability to assist w/LW should he want to complete later in his hospital stay. AKILAH Sampson
--- NOTE | 2023-10-15 13:20 | RAD_ITS ---
STUDY: X-RAY CHEST REASON FOR EXAM: Male, 68 years old. RIJ line placement TECHNIQUE: Single AP portable view of the chest. COMPARISON: Comparison is made with prior study dated October 12, 2023. FINDINGS: A right-sided internal jugular venous catheter has been place with its tip at the junction of the superior vena cava and right atrium. EKG electrodes are seen. There are bilateral pleural effusions with bibasilar atelectasis and/or infiltrate worse on the left side. There has been mild improvement as compared to prior study. Residual CHF is seen. Sternal cerclage wires and vascular clips are present from a prior sternotomy and coronary artery bypass graft procedure (CABG). Cardiomegaly. Normal mediastinum and héctor. Normal visualized pulmonary arteries. There is atherosclerotic calcification of the aortic arch with tortuosity. There are diffuse degenerative changes of the visualized thoracic spine. Normal visualized ribs, clavicles, and shoulders. There is no demonstrated abnormality of the visualized soft tissue structures of the upper abdomen. RAD/CXR for Line Placement IMPRESSION: The tip of the right-sided internal jugular venous catheter is at the junction of the superior vena cava and right atrium. Persistent bilateral pleural effusions left greater than right with bibasilar atelectasis and/or infiltrate. Residual CHF. Electronically Signed: Nino Wood MD at 14:07 EDT ,
[2023-10-15] MEDS: 0.9% Normal Saline 1,000 ML IV.SOLN. 1000 ML OPERA.SITE (13:49)
[2023-10-15] MEDS: 0.9% Saline Lock 10 ML Syringe IV (13:50)
[2023-10-15] MEDS: PureFlow B 2K Dialysis Soln 1 BAG 6 BAG PF (13:50)
[2023-10-15 14:17] LABS: Pathologist Review Reviewed
[2023-10-15 14:17] LABS: Pathologist Review Reviewed
[2023-10-15 14:19] LABS: Pathologist Review Reviewed
[2023-10-15 14:26] LABS: Pathologist Review Reviewed
--- NOTE | 2023-10-15 16:00 | CHAPLAIN ---
Type of Pastoral Visit ___ Initial Visit ___ Follow-up Visit ___ On-call Visit ___ General Patient Visit ___ Spiritual Assessment ___ Family Conference ___ Bereavement ___ Rapid Response ___ Code Blue ___ Other (describe below) Pastoral Care Referral From ___ Patient ___ Family ___ Nurse ___ Physician ___ Hotel Controller ___ Medical Concierge ___ Other (describe below) Sacrament/Intervention ___ Active listening ___ Anointing ___ Advent ___ Bereavement ___ Communion ___ Lynne exploration ___ ___ Life review ___ Prayer ___ Reconciliation ___ Sacrament of Sick ___ Supportive presence ___ Wedding ___ Other (describe below) Pastoral Comments patient is having dialysis, is somewhat confused per RN, and is currently sleeping; will plan to return tomorrow to see this patient for better ability to communicate
[2023-10-15] MEDS: Heparin 10,000 UNITS/10 ML Vial IV (16:19)
[2023-10-15 16:53] LABS: Hepatitis B Surface Antigen Non-Reactive (Nonreactive)
--- NOTE | 2023-10-15 19:18 | PCM.OP.PRO ---
Procedure Report Date of Procedure: 10/15/23 Right IJ dialysis catheter placement. Patient medically needed dialysis today. Patient and family including and daughter at bedside consented for the procedure. In view of thrombocytopenia, looked at right femoral site. He could not lay completely flat for the site exposure. He said he had spine surgery in the past and is in general unable to lie down completely flat. Right IJ was compressible and superficial. Hence right IJ was attempted despite thrombocytopenia. Site was marked under ultrasound. Site cleaned with chlorhexidine. Under aseptic precautions, gown was placed. Local anesthesia obtained with 1% lidocaine. Introducer needle was successfully placed under ultrasound guidance on first attempt. Good return of blood. Guidewire passed without any resistance. Placement of guidewire in vein confirmed with ultrasound. Needle was withdrawn. Tract was dilated with a scalpel and serial dilators applied. A 16 cm, 12 [place] dual-lumen dialysis catheter was threaded over the wire. Guidewire successfully withdrawn. Both port draw and flush well. Sterile caps applied. Sutures placed without any difficulty. Sterile dressing applied. No immediate complications. Postprocedure chest x-ray with tip of the catheter appropriate position.
[2023-10-15] MEDS: Atorvastatin Calcium 80 MG Tablet PO (20:24)
[2023-10-15] MEDS: Acetaminophen 325 MG Tablet 650 MG PO (20:25)
[2023-10-16] VITALS (23 sets, daily range): BP systolic 92–230; BP diastolic 70–95; PULSE 102–137; RESP 16–36; TEMP 36.4–36.7; O2SAT 92–99; BMI 32.2; BMI 32.1; BMI 31.7
[2023-10-16 04:07] LABS: Haptoglobin 39 mg/dL (32-363)
[2023-10-16 05:07] LABS: Complement C3 90 mg/dL (82-167)
--- NOTE | 2023-10-16 08:05 | PCM.PN.HOSP ---
Reason for Visit Reason for Visit: Diagnoses Sepsis, unspecified organism (10/12/23) Thrombocytopenia, unspecified (10/12/23) Acute kidney failure, unspecified (10/12/23) Unspecified jaundice (10/12/23) Presence of aortocoronary bypass graft (10/12/23) Presence of prosthetic heart valve (10/12/23) Subjective Subjective Patient underwent right IJ dialysis catheter placement by Dr. Greenberg on 10/16/2023 for initiation of dialysis Objective Data Objective Data Vital Signs: Vital Signs Temp Pulse Resp BP Pulse Ox O2 Del Method 97.9 F 117 H 20 H 106/81 H 95 Room Air 10/16/23 06:00 10/16/23 06:00 10/16/23 06:00 10/16/23 06:00 10/16/23 06:00 10/16/23 06:00 Oxygen Delivery Method Room Air Weight: 98.974 kg Body Mass Index (BMI) 32.2 Intake & Output: Intake and Output for Last 24 Hours 10/14/23 10/15/23 10/16/23 23:59 23:59 23:59 Intake Total 4278.33 / 4638.33 3063.34 / 3063.34 Output Total 55 / 55 940 / 945 Balance 4223.33 / 4583.33 2123.34 / 2118.34 -10 / -10 Lab / Micro Data 10/16/23 09:24 10/15/23 05:37 Labs: Laboratory Results - last 24 hr 10/12/23 16:30: Diff Path Review Reviewed 10/13/23 06:14: Diff Path Review Reviewed 10/14/23 04:40: Diff Path Review Reviewed 10/15/23 05:37: Differential Comment COMMENT, Diff Path Review Reviewed, Platelet Estimate MKD DEC, Haptoglobin 39, Complement C3 90, Complement C4 26 10/15/23 15:22: Hep Bs Antigen Non-Reactive Micro: Microbiology 10/12/23 16:30 Blood Culture (Wb) - Venous Blood Culture - Final Streptococcus group G 10/12/23 16:30 Blood Culture (Wb) - Venous Bacteria Detection (PCR) - Final Strep not Strep pneumo 10/12/23 16:30 Blood Culture (Wb) - Venous Blood Culture - Final Streptococcus group G 10/12/23 16:41 Urine Catheter - Cantrell Urine Culture - Final Streptococcus group G Radiography Diagnostic Testing: Radiology Impression Chest X-Ray 10/15/23 13:20 IMPRESSION: The tip of the right-sided internal jugular venous catheter is at the junction of the superior vena cava and right atrium. Persistent bilateral pleural effusions left greater than right with bibasilar atelectasis and/or infiltrate. Residual CHF. Electronically Signed: Nino Wood MD at 14:07 EDT , Physical Exam Narrative GENERAL: cooperative HEENT: Atraumatic; normocephalic IJ dialysis catheter right neck EYES; Anicteric, Normal Conjunctiva NECK; supple, normal thyroid, RESPIRATORY: Diminished to auscultation CARDIOVASCULAR: Regular S1 S2, GI: soft, normoactive bowel sounds, : No Renal angle tenderness; EXTREMITIES: edema, no clubbing, MUSCULOSKELETAL: no muscle wasting NEURO: Awake; no lateralizing signs. SKIN: No Rash PSYCH; Flat affect Assessment & Plan Assessment/Plan (1) Sepsis: (2) Acute kidney injury: PLAN: Plan Patient is a 68-year-old gentleman admitted with right flank pain as well as altered mental status. Was found to have sepsis secondary to UTI as well as acute kidney injury admitted to a monitored bed for further management 1. Sepsis secondary to UTI with bacteremia from Streptococcus. ? Patient managed with aggressive IV fluid resuscitation. Protocol in addition to broad-spectrum antibiotic therapy 2. Acute kidney injury ? Suspected to be secondary to sepsis with possible ATN. Admitted to the intensive care unit managed with IV fluids per protocol with patient being thrombocytopenic HUS was entertained however peripheral smear did not reveal any schistocytes. Patient has been seen in consultation by nephrology. With patient worsening kidney function patient may end up needing dialysis prior to discharge ? 10/16/2023;Patient underwent right IJ dialysis catheter placement by Dr. Greenberg on 10/16/2023 for initiation of dialysis 3. Coronary artery disease ? With previous CABG and subsequent stent placement 4. Essential hypertension ? Patient antihypertensives held on admission given his relatively low blood pressure on admission 5. Dyslipidemia -Patient is on statin therapy in addition to Zetia, continued at home dose 6. Thrombocytopenia ? Suspected to be secondary to sepsis ? No indication for platelet transfusion at this point we will continue to monitor trend ? 10/16/2023; patient platelet count up to 70 we will continue with monitoring however if there is any further drop consideration will be given to consulting heme-onc 7. GERD ? On PPI 8. DVT prophylaxis ? Bilateral SCDs Time spent in the patient's overall evaluation,decision-making process, review of diagnostic data, adjustment of management, discussion with other providers, nursing nursing and ancillary staff involved in patient's care documentation, 50 Minutes Charges/Coding Visit Charges Inpatient E&M: 23267 Subs Hosp L3
[2023-10-16 09:35] LABS: Absolute Lymphocyte Count 0.27 X10^3/uL (0.83-4.51); Absolute Neutrophil Count 9.1 X10^3/uL (2.0-7.7); Basophil# 0.04 X10^3/uL; Basophil% 0.4 % (0-1); Eosinophil# 0.01 X10^3/uL; Eosinophils% 0.1 % (0-5); Hemoglobin 11.4 g/dL (13.0-16.5); Lymphocyte # 0.27 X10^3/ul (0.83-4.51); Lymphocyte % 2.6 % (19-41); Mean Corp Hgb Conc 33.5 g/dL (32-36); Mean Corpuscular Hgb 26.6 pg (27.0-32.0); Mean Corpuscular Volume 79.3 fL (80-94); Monocyte# 0.59 X10^3/uL; Monocyte% 5.6 % (0-10); NRBC Flagged by Analyzer 0 % (0-5); Neutrophil % 86.5 % (47-70); POSITIVE COUNT YES; POSITIVE DIFFERENTIAL YES; Platelet Count 70 K/mm3 (150-450); RBC Distribution Width CV 16.6 % (11.6-14.6); RBC Distribution Width SD 47.6 fl (35.1-43.9); Red Blood Count 4.29 M/mm3 (4.6-6.2); White Blood Count 10.5 K/mm3 (4.4-11.0)
[2023-10-16] MEDS: Menthol/Lanolin/Calamine/Znox 113 GM Tube 1 APPLIC TOPICAL ×2 (10:02→22:06)
[2023-10-16] MEDS: Ceftriaxone 1 GM/50 ML BAG IV (10:33)
[2023-10-16 10:35] LABS: Anion Gap 12 (5-15); BUN 116 mg/dL (7-18); BUN/Creat Ratio 16.8 RATIO (10-20); Calcium,Total 7.4 mg/dL (8.5-10.1); Chloride 102 mmol/L (98-107); EST Glomerular Filtration Rate 9 mL/min (>60); Est Glom Filt Rate - Afr Amer 10 mL/min (>60); Estimated Creatinine Clearance 11.72 ml/min; Glucose 111 mg/dL (74-106); Magnesium 2.5 mg/dL (1.6-2.6); Phosphorus 5.4 mg/dL (2.5-4.9); Potassium 4.6 mmol/L (3.5-5.1); Sodium Level 131 mmol/L (136-145)
--- NOTE | 2023-10-16 11:02 | PCM.PN.REN ---
Subjective Subjective Resting in bed. No overnight events. Patient states he feels unwell but feels thinking more clear today. States has very poor appetite, very poor oral intake. Objective Data Objective Data Vital Signs: Vital Signs Temp Pulse Resp BP Pulse Ox O2 Del Method 97.8 F 119 H 29 H 128/88 H 94 Room Air 10/16/23 08:35 10/16/23 08:35 10/16/23 08:35 10/16/23 08:35 10/16/23 08:35 10/16/23 08:48 Oxygen Delivery Method Room Air Weight: 98.974 kg Body Mass Index (BMI) 32.2 Intake & Output: Intake and Output for Last 24 Hours 10/14/23 10/15/23 10/16/23 23:59 23:59 23:59 Intake Total 4278.33 / 4638.33 3063.34 / 3063.34 Output Total 55 / 55 940 / 945 Balance 4223.33 / 4583.33 2123.34 / 2118.34 -10 10 Lab / Micro Data 10/16/23 09:24 10/16/23 09:24 Labs: Laboratory Results - last 24 hr 10/12/23 16:30: Diff Path Review Reviewed 10/13/23 06:14: Diff Path Review Reviewed 10/14/23 04:40: Diff Path Review Reviewed 10/15/23 05:37: Diff Path Review Reviewed, Haptoglobin 39, Complement C3 90, Complement C4 26 10/15/23 15:22: Hep Bs Antigen Non-Reactive 10/16/23 09:24: WBC 10.5, RBC 4.29 L, Hgb 11.4 L, Hct 34.0 L, MCV 79.3 L, MCH 26.6 L, MCHC 33.5, RDW Std Deviation 47.6 H, RDW Coeff of Marcos 16.6 H, Plt Count 70 L, Immature Gran % (Auto) 4.800 H, Neut % (Auto) 86.5 H, Lymph % (Auto) 2.6 L, [place] % (Auto) 5.6, Eos % (Auto) 0.1, Baso % (Auto) 0.4, Absolute Neuts (auto) 9.1 H, Absolute Lymphs (auto) 0.27 L, Nucleated RBC % 0, Sodium 131 L, Potassium 4.6, Chloride 102, Carbon Dioxide 17.0 L, Anion Gap 12, BUN 116 H*, Creatinine 6.90 H, Estim Creat Clear Calc 11.72, Est GFR (MDRD) Af Amer 10 L, Est GFR (MDRD) Non-Af 9 L, BUN/Creatinine Ratio 16.8, Glucose 111 H, Calcium 7.4 L, Phosphorus 5.4 H, Magnesium 2.5 Micro: Microbiology 10/12/23 16:30 Blood Culture (Wb) - Venous Blood Culture - Final Streptococcus group G 10/12/23 16:30 Blood Culture (Wb) - Venous Bacteria Detection (PCR) - Final Strep not Strep pneumo 10/12/23 16:30 Blood Culture (Wb) - Venous Blood Culture - Final Streptococcus group G 10/12/23 16:41 Urine Catheter - Cantrell Urine Culture - Final Streptococcus group G Radiography Diagnostic Testing: Radiology Impression Chest X-Ray 10/15/23 13:20 IMPRESSION: The tip of the right-sided internal jugular venous catheter is at the junction of the superior vena cava and right atrium. Persistent bilateral pleural effusions left greater than right with bibasilar atelectasis and/or infiltrate. Residual CHF. Electronically Signed: Nino Wood MD at 14:07 EDT , Physical Exam Narrative Alert and oriented x 3, no apparent distress S1, S2, RRR Diminished breath sounds, no rales or rhonchi Abdomen soft, nontender Edema bilateral lower legs Indwelling Cantrell scant yellow urine in bag Non-tunneled temporary right IJ hemodialysis catheter dressing clean, dry and intact Assessment & Plan Assessment/Plan (1) Acute kidney injury: PLAN: --- Acute kidney injury in the setting of Streptococcus group G urosepsis/bacteremia with history of normal baseline creatinine. LEELA possibly from ATN versus other etiology. Workup pending. - CPK 117, haptoglobin low normal at 39. LDH elevated at 606, urine protein creatinine ratio 4.6 g. C3 and C4 complements normal. UA +blood. -Serum creatinine 1.3 on 09/11/2023. Baseline creatinine around 1 mg/dL. On 10/11/2023 serum creatinine 1.51, 10/11 serum creatinine 3.54, SCr peaked 6.93, BUN 122 10/14. Essentially anuric, patient has Cantrell. Due to progressively worsening kidney function, essentially anuric with uremia patient was started on hemodialysis via non-tunneled temporary HD catheter on 10/14. Will plan for hemodialysis again today with fluid removal as patient/blood pressure tolerates. Will evaluate daily for dialysis needs. Monitoring for renal recovery. If patient is hemodialysis dependent by time of discharge then he will need a tunneled hemodialysis line placed once infection cleared and PLT level improved with outpatient hemodialysis arrangements. We will continue to monitor for renal recovery. Off IV fluids. --- Thrombocytopenia with history of normal platelet count. Platelet [place] 74,000 [place] [address] and today improved to 70,000. Suspected secondary to sepsis. --- Bacteremia and urosepsis from Streptococcus group G. On IV antibiotics. Blood cx from 10/13 pending. --- History of hypertension (patient was on amlodipine, metoprolol and Lasix at home). Blood pressures were low normal on admission. Blood pressures acceptable now. He is not on any antihypertensives.
[2023-10-16] MEDS: 0.9% Saline Lock 10 ML Syringe IV (12:03)
[2023-10-16] MEDS: PureFlow B 2K Dialysis Soln 1 BAG 6 BAG PF (12:03)
[2023-10-16] MEDS: 0.9% Normal Saline 1,000 ML IV.SOLN. 1000 ML OPERA.SITE (12:03)
--- NOTE | 2023-10-16 13:18 | CHAPLAIN ---
Type of Pastoral Visit _x__ Initial Visit ___ Follow-up Visit ___ On-call Visit ___ General Patient Visit ___ Spiritual Assessment ___ Family Conference ___ Bereavement ___ Rapid Response ___ Code Blue ___ Other (describe below) Pastoral Care Referral From _x__ Patient ___ Family ___ Nurse ___ Physician ___ Etched Circuit Processor ___ Croze Cutter Helper ___ Other (describe below) Sacrament/Intervention ___ Active listening ___ Anointing ___ Adventism ___ Bereavement ___ Communion ___ Lynne exploration ___ ___ Life review _x__ Prayer ___ Reconciliation ___ Sacrament of Sick _x__ Supportive presence ___ Wedding ___ Other (describe below) Pastoral Comments patient appears to be sleeping but awakens to his name; pt is able to answer questions with simple responses but does not engage in conversation; pt states that he is fine; pt is aware that dialysis is to happen soon; pt denies needs but when asked about a prayer he says that prayer would be good; prayer given and patient appears to be asleep again; dialysis to begin now
[2023-10-16] MEDS: Heparin 10,000 UNITS/10 ML Vial IV (15:29)
[2023-10-16 22:02] LABS: BUN 72 mg/dL (7-18); Creatinine, Serum 4.11 mg/dL (0.70-1.30); EST Glomerular Filtration Rate 15 mL/min (>60); Est Glom Filt Rate - Afr Amer 19 mL/min (>60); Estimated Creatinine Clearance 19.51 ml/min
[2023-10-16] MEDS: Acetaminophen 325 MG Tablet 650 MG PO (22:04)
[2023-10-16] MEDS: oxyCODONE 5 MG Tablet PO (22:04)
[2023-10-16] MEDS: Metoprolol Tartrate 25 MG Tablet PO (22:05)
[2023-10-16] MEDS: Pantoprazole Sodium 40 MG Tablet PO (22:05)
[2023-10-16] MEDS: Polyethylene Glycol 3350 17 GM PACKET PO (22:05)
[2023-10-17] VITALS (23 sets, daily range): BP systolic 89–192; BP diastolic 66–96; PULSE 81–128; RESP 13–31; TEMP 36.4–36.6; O2SAT 92–97; BMI 32.3
[2023-10-17 06:30] LABS: Hematocrit 31.3 % (40-54); Hemoglobin 10.7 g/dL (13.0-16.5); Mean Corp Hgb Conc 34.2 g/dL (32-36); Mean Corpuscular Volume 78.8 fL (80-94); Mean Platelet Vol. 11.7 fl (6.2-12.0); POSITIVE COUNT YES; POSITIVE DIFFERENTIAL YES; POSITIVE MORPHOLOGY YES; Platelet Count 106 K/mm3 (150-450); RBC Distribution Width CV 16.3 % (11.6-14.6); RBC Distribution Width SD 47.2 fl (35.1-43.9); Red Blood Count 3.97 M/mm3 (4.6-6.2); White Blood Count 11.5 K/mm3 (4.4-11.0)
[2023-10-17 06:57] LABS: Anion Gap 13 (5-15); BUN 96 mg/dL (7-18); BUN/Creat Ratio 16.1 RATIO (10-20); Calcium,Total 7.6 mg/dL (8.5-10.1); Chloride 100 mmol/L (98-107); Creatinine, Serum 5.98 mg/dL (0.70-1.30); EST Glomerular Filtration Rate 10 mL/min (>60); Est Glom Filt Rate - Afr Amer 12 mL/min (>60); Estimated Creatinine Clearance 13.53 ml/min; Glucose 112 mg/dL (74-106); Potassium 4.5 mmol/L (3.5-5.1); Sodium Level 130 mmol/L (136-145)
--- NOTE | 2023-10-17 07:37 | PN.HOSP_ITS ---
Reason for Visit Reason for Visit: Diagnoses Sepsis, unspecified organism (10/12/23) Thrombocytopenia, unspecified (10/12/23) Acute kidney failure, unspecified (10/12/23) Unspecified jaundice (10/12/23) Presence of aortocoronary bypass graft (10/12/23) Presence of prosthetic heart valve (10/12/23) Subjective Subjective Patient seen currently undergoing dialysis. Clinical condition including her platelet count as well as kidney function continues to improve Objective Data Objective Data Vital Signs: Vital Signs Temp Pulse Resp BP Pulse Ox O2 Del Method 97.7 F L 115 H 26 H 97/85 H 94 Room Air 10/17/23 05:30 10/17/23 06:00 10/17/23 06:00 10/17/23 06:00 10/17/23 06:00 10/17/23 06:00 Oxygen Delivery Method Room Air Weight: 99.1 kg Body Mass Index (BMI) 32.3 Intake & Output: Intake and Output for Last 24 Hours 10/15/23 10/16/23 10/17/23 23:59 23:59 23:59 Intake Total 3063.34 / 3063.34 290 / 290 120 / 120 Output Total 940 / 945 1895 / 1895 Balance 2123.34 / 2118.34 -1605 / -1605 120 / 120 Lab / Micro Data 10/17/23 06:16 10/17/23 06:16 Labs: Laboratory Results - last 24 hr 10/16/23 09:24: WBC 10.5, RBC 4.29 L, Hgb 11.4 L, Hct 34.0 L, MCV 79.3 L, MCH 26.6 L, MCHC 33.5, RDW Std Deviation 47.6 H, RDW Coeff of Marcos 16.6 H, Plt Count 70 L, Immature Gran % (Auto) 4.800 H, Neut % (Auto) 86.5 H, Lymph % (Auto) 2.6 L , [place] % (Auto) 5.6, Eos % (Auto) 0.1, Baso % (Auto) 0.4, Absolute Neuts (auto) 9.1 H, Absolute Lymphs (auto) 0.27 L, Nucleated RBC % 0, Sodium 131 L, Potassium 4.6, Chloride 102, Carbon Dioxide 17.0 L, Anion Gap 12, BUN 116 H*, Creatinine 6.90 H, Estim Creat Clear Calc 11.72, Est GFR (MDRD) Af Amer 10 L, Est GFR (MDRD) Non-Af 9 L, BUN/Creatinine Ratio 16.8, Glucose 111 H, Calcium 7.4 L, P hosphorus 5.4 H, Magnesium 2.5 10/16/23 15:46: BUN 72 H, Creatinine 4.11 H, Estim Creat Clear Calc 19.51, Est GFR (MDRD) Af Amer 19 L, Est GFR (MDRD) Non-Af 15 L 10/17/23 06:16: WBC 11.5 H, RBC 3.97 L, Hgb 10.7 L, Hct 31.3 L, MCV 78.8 L, MCH 27.0, MCHC 34.2, RDW Std Deviation 47.2 H, RDW Coeff of Marcos 16.3 H, Plt Count 106 L, MPV 11.7, Immature Gran % (Auto) 5.600 H, Neut % (Auto) 83.8 H, Lymph % (Auto) 3.8 L, [place] % (Auto) 6.1, Eos % (Auto) 0.3, Baso % (Auto) 0.4, Absolute Neuts (auto) 9.6 H, Absolute Lymphs (auto) 0.44 L, Nucleated RBC % 0, Sodium 130 L, Potassium 4.5, Chloride 100, Carbon Dioxide 17.0 L, Anion Gap 13, BUN 96 H, C reatinine 5.98 H, Estim Creat Clear Calc 13.53, Est GFR (MDRD) Af Amer 12 L, Est GFR (MDRD) Non-Af 10 L, BUN/Creatinine Ratio 16.1, Glucose 112 H, Calcium 7.6 L Micro: Microbiology 10/14/23 11:25 Blood Culture (Wb) - Line Draw Blood Culture - Preliminary No growth in 48 hours. 10/12/23 16:30 Blood Culture (Wb) - Venous Blood Culture - Final Streptococcus group G 10/12/23 16:30 Blood Culture (Wb) - Venous Bacteria Detection (PCR) - Final Strep not Strep pneumo 10/12/23 16:30 Blood Culture (Wb) - Venous Blood Culture - Final Streptococcus group G 10/12/23 16:41 Urine Catheter - Cantrell Urine Culture - Final Streptococcus group G Physical Exam Narrative GENERAL: cooperative HEENT: Atraumatic; normocephalic IJ dialysis catheter right neck EYES; Anicteric, Normal Conjunctiva NECK; supple, normal thyroid, RESPIRATORY: Diminished to auscultation CARDIOVASCULAR: Regular S1 S2, GI: soft, normoactive bowel sounds, : No Renal angle tenderness; EXTREMITIES: edema, no clubbing, MUSCULOSKELETAL: no muscle wasting NEURO: Awake; no lateralizing signs. SKIN: No Rash PSYCH; Flat affect Assessment & Plan Assessment/Plan (1) Sepsis: (2) Acute kidney injury: PLAN: Plan Patient is a 68-year-old gentleman admitted with right flank pain as well as altered mental status. Was found to have sepsis secondary to UTI as well as acute kidney injury admitted to a monitored bed for further management 1. Sepsis secondary to UTI with bacteremia from Streptococcus. ? Patient managed with aggressive IV fluid resuscitation. Protocol in addition to broad-spectrum antibiotic therapy 2. Acute kidney injury ? Suspected to be secondary to sepsis with possible ATN. Admitted to the intensive care unit managed with IV fluids per protocol with patient being thrombocytopenic HUS was entertained however peripheral smear did not reveal any schistocytes. Patient has been seen in consultation by nephrology. With patient worsening kidney function patient may end up needing dialysis prior to discharge ? 10/16/2023;Patient underwent right IJ dialysis catheter placement by Dr. Greenberg on 10/16/2023 for initiation of dialysis ?10/17/2023; patient has tolerated dialysis well so far. 3. Coronary artery disease ? With previous CABG and subsequent stent placement 4. Essential hypertension ? Patient antihypertensives held on admission given his relatively low blood pressure on admission 5. Dyslipidemia -Patient is on statin therapy in addition to Zetia, continued at home dose 6. Thrombocytopenia ? Suspected to be secondary to sepsis ? No indication for platelet transfusion at this point we will continue to monitor trend ? 10/16/2023; patient platelet count up to 70 we will continue with monitoring however if there is any further drop consideration will be given to consulting heme-onc ? 10/17/2023; patient platelet count continues to trend up 7. GERD ? On PPI 8. DVT prophylaxis ? Bilateral SCDs Time spent in the patient's overall evaluation,decision-making process, review of diagnostic data, adjustment of management, discussion with other providers, nursing nursing and ancillary staff involved in patient's care documentation, 36 Minutes Charges/Coding Visit Charges Inpatient E&M: 04875 Subs Hosp L2
[2023-10-17] MEDS: PureFlow B 2K Dialysis Soln 1 BAG 6 BAG PF (08:00)
[2023-10-17] MEDS: 0.9% Normal Saline 1,000 ML IV.SOLN. 1000 ML OPERA.SITE (08:00)
[2023-10-17] MEDS: 0.9% Saline Lock 10 ML Syringe IV ×2 (08:01→11:10)
[2023-10-17 08:14] LABS: Eosinophil 1 % (0-5); Lymphocyte 4 % (19-41); Metamyelocyte 1 % (0-1); Monocyte 9 % (0-10); Neutrophil-Segmented 84 % (47-70); Promyelocyte 1 % (0-0); Total Cells Counted 100 (MANUAL DIFF)
[2023-10-17 08:18] LABS: Acanthocytes RARE
[2023-10-17 08:19] LABS: Anisocytosis 1+; Platelet Morphology LARGE
[2023-10-17 08:21] LABS: Platelet Estimate SLT DEC (ADEQ)
[2023-10-17 08:23] LABS: Red Cell Morphology N CHROM NORMAL (NORM C&C)
[2023-10-17 08:25] LABS: Differential Indicated MANUAL DIFF
[2023-10-17 08:29] LABS: Absolute Lymphocyte Count 0.46 X10^3/uL (0.83-4.51); Absolute Neutrophil Count 9.7 X10^3/uL (2.0-7.7)
[2023-10-17] MEDS: Heparin 10,000 UNITS/10 ML Vial IV (11:10)
--- NOTE | 2023-10-17 11:48 | WOUNDNOTE ---
Pt currently getting dialysis. will assess the back wounds this afternoon.
[2023-10-17] MEDS: Ceftriaxone 1 GM/50 ML BAG IV (12:07)
[2023-10-17] MEDS: Menthol/Lanolin/Calamine/Znox 113 GM Tube 1 APPLIC TOPICAL ×2 (12:11→20:59)
[2023-10-17] MEDS: Pantoprazole Sodium 40 MG Tablet PO ×2 (12:12→20:59)
[2023-10-17] MEDS: Metoprolol Tartrate 25 MG Tablet PO ×2 (12:12→20:59)
[2023-10-17] MEDS: Ezetimibe 10 MG Tablet PO (12:12)
[2023-10-17] MEDS: Senna/Docusate Sodium 1 Tablet 2 TABLET PO ×2 (12:13→21:00)
[2023-10-17] MEDS: Aspirin 81 MG TAB.CHEW PO (12:13)
[2023-10-17] MEDS: Polyethylene Glycol 3350 17 GM PACKET PO ×2 (12:13→21:00)
--- NOTE | 2023-10-17 13:40 | ECHOL_ITS ---
Reason For Study: MURMUR Procedure This was a limited 2D transthoracic echocardiogram. Exam performed portable in patient room. Left Ventricle Normal LV size. Moderate concentric left ventricular hypertrophy. The left ventricular ejection fraction is 55 %. Right Ventricle Normal right ventricle. Atria The left and right atria are normal. Mitral Valve Trivial mitral valve insufficiency. Tricuspid Valve Normal tricuspid valve. Aortic Valve Bioprosthetic aortic valve. Pulmonic Valve The pulmonic valve is not well visualized. Great Vessels The aortic root is not well visualized. Pericardium/Pleural Moderate sized clear pericardial effusion. Moderate to large size organized effusion versus pericardial tumor. Recommend cardiac CT or MRI for further evaluation. MMode/2D Measurements & Calculations LVIDd: 3.7 cm IVSd: 1.3 cm LAV(MOD-sp4): 26.0 ml LVIDs: 2.7 cm LVPWd: 1.5 cm FS: 27.7 % LA A4 area: 12.4 cm2 RA A4 area: 11.6 cm2 ECHO/Echo, Limited Study Interpretation Summary Limited echocardiogram with limited views. The left ventricular ejection fraction is 55 %. Moderate sized clear pericardial effusion. Moderate to large size organized eff usion versus pericardial tumor. Recommend CT or MRI for further evaluation. Ordering Physician: Scout Mann Referring Physician: DIANNA LAUREANO Performed By: Kita Keith and Student
[2023-10-17 14:19] LABS: Scan Smear per Review Criteria MANUAL DIFF
--- NOTE | 2023-10-17 15:51 | PCM.PN.REN ---
Subjective Subjective Says he is nauseated. Dialysis earlier this morning. Breathing looks comfortable. Overall edematous. Objective Data Objective Data Vital Signs: Vital Signs Temp Pulse Resp BP Pulse Ox O2 Del Method 97.7 F L 92 18 121/84 H 95 Room Air 10/17/23 10:00 10/17/23 12:12 10/17/23 11:46 10/17/23 12:12 10/17/23 11:46 10/17/23 11:46 Oxygen Delivery Method Room Air Weight: 99.1 kg Body Mass Index (BMI) 32.3 Intake & Output: Intake and Output for Last 24 Hours 10/15/23 10/16/23 10/17/23 23:59 23:59 23:59 Intake Total 3063.34 / 3063.34 290 / 290 230 / 230 Output Total 940 / 945 1895 / 1895 1150 / 1150 Balance 2123.34 / 2118.34 -1605 / -1605 -920 / -920 Lab / Micro Data 10/17/23 06:16 10/17/23 06:16 Labs: Laboratory Results - last 24 hr 10/16/23 15:46: BUN 72 H, Creatinine 4.11 H, Estim Creat Clear Calc 19.51, Est GFR (MDRD) Af Amer 19 L, Est GFR (MDRD) Non-Af 15 L 10/17/23 06:16: WBC 11.5 H, RBC 3.97 L, Hgb 10.7 L, Hct 31.3 L, MCV 78.8 L, MCH 27.0, MCHC 34.2, RDW Std Deviation 47.2 H, RDW Coeff of Marcos 16.3 H, Plt Count 106 L, MPV 11.7, Immature Gran % (Auto) DECK BUILDER, Neut % (Auto) DECK BUILDER, Lymph % (Auto) DECK BUILDER, [place] % (Auto) DECK BUILDER, Eos % (Auto) DECK BUILDER, Baso % (Auto) DECK BUILDER, Absolute Neuts (auto) 9.7 H, Absolute Lymphs (auto) 0.46 L, Total Counted 100, Neutrophils % (Manual) 84 H, Lymphocytes % (Manual) 4 L, Monocytes % (Manual) 9, Eosinophils % (Manual) 1, Metamyelocytes % 1, Promyelocytes % 1 H, Nucleated RBC % DECK BUILDER, Diff Path Review May foll, Platelet Estimate SLT DEC, Plt Morphology Comment LARGE, RBC Morphology N CHROM, Anisocytosis 1+, Acanthocytes (Spur) RARE, Sodium 130 L, Potassium 4.5, Chloride 100, Carbon Dioxide 17.0 L, Anion Gap 13, BUN 96 H, Creatinine 5.98 H, Estim Creat Clear Calc 13.53, Est GFR (MDRD) Af Amer 12 L, Est GFR (MDRD) Non-Af 10 L, BUN/Creatinine Ratio 16.1, Glucose 112 H, Calcium 7.6 L Micro: Microbiology 10/14/23 11:25 Blood Culture (Wb) - Line Draw Blood Culture - Preliminary No growth in 48 hours. 10/12/23 16:30 Blood Culture (Wb) - Venous Blood Culture - Final Streptococcus group G 10/12/23 16:30 Blood Culture (Wb) - Venous Bacteria Detection (PCR) - Final Strep not Strep pneumo 10/12/23 16:30 Blood Culture (Wb) - Venous Blood Culture - Final Streptococcus group G 10/12/23 16:41 Urine Catheter - Cantrell Urine Culture - Final Streptococcus group G Physical Exam Narrative Alert and oriented x 3, no apparent distress S1, S2, RRR Diminished breath sounds, no rales or rhonchi Abdomen soft, nontender Edema bilateral lower legs Indwelling Cantrell scant yellow urine in bag Non-tunneled temporary right IJ hemodialysis catheter dressing clean, dry and intact Const alert, oriented x3, no apparent distress and average body habitus General Appearance: well developed Orientation / Consciousness: oriented to person, oriented to place and oriented to time HEENT normocephalic Neck no lymphadenopathy Resp no use of accessory muscles Cardio regular rate Cardio Narrative: tachycardia GI non-tender Auscultation: normoactive bowel sounds Palpation: soft Bladder / Kidney Exam: catheter in place Extremity no clubbing, cyanosis or edema Skin no rashes or lesions noted Neuro Sensorium / Orientation: awake and alert Psych cooperative Assessment & Plan Assessment/Plan (1) Acute kidney injury: PLAN: Acute renal failure. Normal baseline creatinine. As recent as 10/05/2023, his creatinine was normal at 1.0. Extensive history of kidney stone. He had a CT scan beginning of September where there were kidney stones with mild hydronephrosis. Repeat CT scan here on admission did not show any hydronephrosis. Essentially anuric since admission. Started on dialysis 10/15/2023. Today is day 3 of dialysis. Severe thrombocytopenia on admission. No evidence of schistocytes on peripheral smear. LDH was high but haptoglobin was normal. Platelet counts are improving. Has Streptococcus group G and blood in the urine. Repeat cultures are negative. Differential diagnosis include ATN from sepsis versus glomerulonephritis from Streptococcus. Typically post strep GN is related to Streptococcus group A but usually presents after 2 weeks. His serum complements are normal. He could have predominant IgA related glomerulonephritis from any infection. Discussed with ID service. Antibiotics will be adjusted. We will probably get a kidney biopsy to have a conclusive diagnosis. Patient is agreeable. 2. Thrombocytopenia. Platelet counts are better. Presumably this is sepsis related. 3. Reviewed old records from [facility]. He has known history of esophageal adenocarcinoma initially diagnosed in 2020. Had surgery, chemotherapy with carboplatin, adjuvant chemotherapy with nivolumab. Currently on active surveillance. Last MRI showed possible spinal lesions. He had a T-spine biopsy in September which did not show any malignancy. He follows with oncology here in [facility] in [place].
--- NOTE | 2023-10-17 16:02 | PCM.CONS.GEN ---
Assessment & Plan Assessment/Plan (1) Sepsis: (2) Acute kidney injury: (3) History of aortic valve replacement: (4) Bacterial infection due to Streptococcus, group G: PLAN: sepsis and LEELA due to Group G strep bacteremia, suspect urinary source. Will repeat bcx. Will change ceftriaxone to cefazolin. Concern for L knee septic arthritis, will consult ortho for eval. With strep bacteremia and prior TAVR, will check TTE, then may need RICKY. Will follow, thank you HPI Consult Data Date of Consult: 10/17/23 HPI Narrative Reason for Consultation: bacteremia HPI Narrative: NICKO ROSALES, is a 68 M with h/o esophageal cancer, CAD, CABG, TAVR, presented 10/11 to ED with flank pain, hematuria, confusion. He does not recall what happened. Had kidney stone about a month ago. Admitted, on ceftriaxone, found to have LEELA, now on HD. Feeling better, no dysuria. Does c/o new joint pain in elbows and knee, L knee is the worst. Full ROS performed and neg except as noted above. [facility] Medical History Adenocarcinoma of esophagus LEELA (acute kidney injury) Non-smoker Esophageal carcinoma Atherosclerosis of coronary artery of [place] heart without angina pectoris 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 Essential (primary) hypertension Non-rheumatic aortic stenosis Syncope and collapse Hyperlipidemia Atherosclerotic heart disease of [place] coronary artery with other forms of angina pectoris Encounter for long-term current use of high risk medication abnormal stress test Angina pectoris Exertional chest pain URI (upper respiratory infection) Home Medications ?Medication ?Instructions ?Recorded ?Last Taken ?Type aspirin 81 mg chewable tablet 81 mg PO DAILY@0800 HEALTH 01/23/14 10/10/23 History pantoprazole 40 mg tablet,delayed 40 mg PO BID GERD 03/24/21 10/10/23 History release (Protonix) amlodipine 10 mg tablet 10 mg PO DAILY BP #90 tabs 05/15/22 10/10/23 Rx atorvastatin 80 mg tablet 80 mg PO QHS CHOLESTEROL #90 tabs 05/15/22 10/10/23 Rx ezetimibe 10 mg tablet 10 mg PO DAILY CHOLESTEROL #90 tabs 05/15/22 10/10/23 Rx metoprolol tartrate 25 mg tablet 25 mg PO BID HEART #180 tabs 05/15/22 10/10/23 Rx nitroglycerin 0.4 mg sublingual 0.4 mg sublingual Q5M PRN Chest 05/15/22 Unknown Rx tablet Pain #25 tabs furosemide 20 mg tablet 20 mg PO DAILY heart #14 tabs 09/11/23 10/10/23 Rx hydrocodone-acetaminophen 5-325mg 1 tab PO Q4H PRN PRN Pain 4 days 09/11/23 10/10/23 Rx 5mg-325mg #20 TABLETS nystatin 100,000 unit/gram topical 1 applic topical BID right chest 09/11/23 10/10/23 History cream ondansetron HCl 8 mg tablet 8 mg PO Q8H PRN PRN nausea/vomiting 09/11/23 10/10/23 History potassium chloride 20 mEq 20 meq PO BID supplement #20 tabs 09/11/23 10/10/23 Rx tablet,extended release hydrocodone-acetaminophen 5-325mg 1 tab PO Q4H PRN PRN Pain 3 days 10/11/23 10/10/23 Rx 5mg-325mg #10 TABLETS ondansetron 4 mg disintegrating 4 mg PO Q8H PRN PRN Nausea #10 tabs 10/11/23 10/10/23 Rx tablet Allergy/AdvReac Type Severity Reaction Status Date / Time No Known Allergies Allergy Verified 10/12/23 16:11 Family History Father Heart disease Myocardial infarction Hypertension Brother Hypertension Sister Heart disease Myocardial infarction Surgical History History of aortic valve replacement (03/03/19) History of coronary artery stent placement (12/31/18) H/O coronary artery bypass surgery (09/18/02) History of tonsillectomy History of hernia repair Social History Smoking Status: Never smoker alcohol intake: never substance use type: does not use caffeine: No what type of physical activity do you participate in: walking frequency: daily Physical Exam Const alert, oriented x3 and no apparent distress General Appearance: cooperative HEENT normocephalic and head/scalp atraumatic Eyes PERRL and EOMs intact bilaterally Neck supple and No nodes Resp normal air movement and clear to auscultation bilaterally Cardio Rate: tachycardic Heart Sounds: murmur GI soft to palpation, non-tender and non-distended Extremity General Extremity: edema Skin Skin Narrative: L knee quite tender to light touch, warm, swollen, red Neuro CN's II-XII intact bilaterally Lab / Micro Data 10/17/23 06:16 10/17/23 06:16 Labs: Laboratory Results - last 24 hr 10/16/23 15:46: BUN 72 H, Creatinine 4.11 H, Estim Creat Clear Calc 19.51, Est GFR (MDRD) Af Amer 19 L, Est GFR (MDRD) Non-Af 15 L 10/17/23 06:16: WBC 11.5 H, RBC 3.97 L, Hgb 10.7 L, Hct 31.3 L, MCV 78.8 L, MCH 27.0, MCHC 34.2, RDW Std Deviation 47.2 H, RDW Coeff of Marcos 16.3 H, Plt Count 106 L, MPV 11.7, Immature Gran % (Auto) BROADCAST CORRESPONDENT, Neut % (Auto) BROADCAST CORRESPONDENT, Lymph % (Auto) BROADCAST CORRESPONDENT, [place] % (Auto) BROADCAST CORRESPONDENT, Eos % (Auto) BROADCAST CORRESPONDENT, Baso % (Auto) BROADCAST CORRESPONDENT, Absolute Neuts (auto) 9.7 H, Absolute Lymphs (auto) 0.46 L, Total Counted 100, Neutrophils % (Manual) 84 H, Lymphocytes % (Manual) 4 L, Monocytes % (Manual) 9, Eosinophils % (Manual) 1, Metamyelocytes % 1, Promyelocytes % 1 H, Nucleated RBC % BROADCAST CORRESPONDENT, Diff Path Review May foll, Platelet Estimate SLT DEC, Plt Morphology Comment LARGE, RBC Morphology N CHROM, Anisocytosis 1+, Acanthocytes (Spur) RARE, Sodium 130 L, Potassium 4.5, Chloride 100, Carbon Dioxide 17.0 L, Anion Gap 13, BUN 96 H, Creatinine 5.98 H, Estim Creat Clear Calc 13.53, Est GFR (MDRD) Af Amer 12 L, Est GFR (MDRD) Non-Af 10 L, BUN/Creatinine Ratio 16.1, Glucose 112 H, Calcium 7.6 L Micro: Microbiology 10/14/23 11:25 Blood Culture (Wb) - Line Draw Blood Culture - Preliminary No growth in 48 hours.
--- NOTE | 2023-10-17 16:03 | CASEMGMT ---
MICHELE CM in to discuss possible needs at discharge with patient and family. MICHELE HILLMAN reviewed progress with therapy, depended assist x2 for EOB. MICHELE HILLMAN discussed possible need for SNF at discharge, patient agreeable that he may need to go to SNF and would like SNF list. Patient and family had no further questions or concerns. MICHELE HILLMAN updated SW regarding request for SNF list. CM will continue to follow this patient and plan for a safe discharge.
--- NOTE | 2023-10-17 16:48 | RAD_ITS ---
STUDY: X-RAY - LEFT KNEE REASON FOR EXAM: Male, 68 years old. ? septic arthritis left knee -- 2 views needed TECHNIQUE: 2 view(s) of the knee. COMPARISON: None. FINDINGS: Normal visualized distal femur. Normal visualized proximal tibia and fibula. Normal proximal tibiofibular articulation. Normal medial femorotibial compartment. Normal lateral femorotibial compartment. Normal patellofemoral articulation. There is a moderate volume joint effusion. There are atherosclerotic calcifications. RAD/Knee 1 or 2 Views IMPRESSION: Moderate effusion Electronically Signed: Jp Pacheco MD at 23:53 EDT ,
--- NOTE | 2023-10-17 17:23 | CON.PCM.OR_ITS ---
HPI Consult Data Date of Consult: 10/17/23 HPI Narrative Reason for Consultation: Concern for left knee septic arthritis HPI Narrative: NICKO ROSALES, is a 68 M who who presented 10/12/2023 to [facility] emergency department with hematuria, confusion and flank pain. He was diagnosed as sepsis and resuscitated and started on IV antibiotics. Patient's blood and urine cultures are growing Streptococcus group G. He reports on 10/10/2023 he awoke with weakness in his left arm. That evening he was not feeling well and subsequently got sicker prompting emergency department visit. He reports progressive knee pain over the last several days worse in his left knee as well as swelling. He reports diffuse swelling likely related to fluid retention in all 4 extremities. He reports no history of knee pain or surgery bilaterally. He denies any history of inflammatory arthritis or gout/pseudogout. Patient underwent hemodialysis catheter placement and subsequent hemodialysis 2 days ago. He feels his peripheral edema is improving. Patient reports he has not been out of bed for an extended period time since admission. He reports some soreness in both of his collarbones but states his left knee is the worst pain. He denies any fevers, chills, nausea or vomiting, chest pain or shortness of breath at this time. I was asked to see the patient due to concern for left knee septic arthritis. Patient reports swelling in both of his knees but no considerable pain in the right knee. He denies any other joint pain time of my examination. 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 Essential (primary) hypertension Non-rheumatic aortic stenosis Syncope and collapse Hyperlipidemia Atherosclerotic heart disease of [place] coronary artery with other forms of angina pectoris Encounter for long-term current use of high risk medication abnormal stress test Angina pectoris Exertional chest pain URI (upper respiratory infection) Home Medications ?Medication ?Instructions ?Recorded ?Last Taken ?Type aspirin 81 mg chewable tablet 81 mg PO DAILY@0800 HEALTH 01/23/14 10/10/23 History pantoprazole 40 mg tablet,delayed 40 mg PO BID GERD 03/24/21 10/10/23 History release (Protonix) amlodipine 10 mg tablet 10 mg PO DAILY BP #90 tabs 05/15/22 10/10/23 Rx atorvastatin 80 mg tablet 80 mg PO QHS CHOLESTEROL #90 tabs 05/15/22 10/10/23 Rx ezetimibe 10 mg tablet 10 mg PO DAILY CHOLESTEROL #90 tabs 05/15/22 10/10/23 Rx metoprolol tartrate 25 mg tablet 25 mg PO BID HEART #180 tabs 05/15/22 10/10/23 Rx nitroglycerin 0.4 mg sublingual 0.4 mg sublingual Q5M PRN Chest 05/15/22 Unknown Rx tablet Pain #25 tabs furosemide 20 mg tablet 20 mg PO DAILY heart #14 tabs 09/11/23 10/10/23 Rx hydrocodone-acetaminophen 5-325mg 1 tab PO Q4H PRN PRN Pain 4 days 09/11/23 10/10/23 Rx 5mg-325mg #20 TABLETS nystatin 100,000 unit/gram topical 1 applic topical BID right chest 09/11/23 10/10/23 History cream ondansetron HCl 8 mg tablet 8 mg PO Q8H PRN PRN nausea/vomiting 09/11/23 10/10/23 History potassium chloride 20 mEq 20 meq PO BID supplement #20 tabs 09/11/23 10/10/23 Rx tablet,extended release hydrocodone-acetaminophen 5-325mg 1 tab PO Q4H PRN PRN Pain 3 days 10/11/23 10/10/23 Rx 5mg-325mg #10 TABLETS ondansetron 4 mg disintegrating 4 mg PO Q8H PRN PRN Nausea #10 tabs 10/11/23 10/10/23 Rx tablet Allergy/AdvReac Type Severity Reaction Status Date / Time No Known Allergies Allergy Verified 10/12/23 16:11 Family History Father Heart disease Myocardial infarction Hypertension Brother Hypertension Sister Heart disease Myocardial infarction Surgical History History of aortic valve replacement (03/03/19) History of coronary artery stent placement (12/31/18) H/O coronary artery bypass surgery (06/12/03) History of tonsillectomy History of hernia repair Social History Smoking Status: Never smoker alcohol intake: never substance use type: does not use caffeine: No what type of physical activity do you participate in: walking frequency: daily ROS ROS Narrative 12 point review of systems obtained and negative as otherwise noted in HPI. Vital Signs Vital Signs Vital Signs: 10/16/23 20:10 10/16/23 22:00 10/16/23 22:05 Temperature 98.0 F Temperature Source Oral Pulse Rate 116 H 116 H Pulse Strength Respiratory Rate 30 H Respiratory Effort Short of Breath Respiratory Depth Normal Respiratory Pattern Tachypnea Blood Pressure 109/85 H 109/85 H Blood Pressure Mean 93 Blood Pressure Source Monitor Blood Pressure Position Semi-Fowlers Blood Pressure Location Right Arm Pulse Ox 93 Oxygen Delivery Method Room Air Room Air 10/16/23 22:21 10/16/23 23:00 10/17/23 00:00 Temperature Temperature Source Pulse Rate 133 H 128 H Pulse Strength Normal (2+) Respiratory Rate 36 H 31 H Respiratory Effort Respiratory Depth Respiratory Pattern Blood Pressure 100/78 98/81 H Blood Pressure Mean 85 86 Blood Pressure Source Monitor Monitor Blood Pressure Position Blood Pressure Location Pulse Ox 93 93 Oxygen Delivery Method Room Air Room Air 10/17/23 01:00 10/17/23 02:00 10/17/23 03:00 Temperature Temperature Source Pulse Rate 115 H 114 H 115 H Pulse Strength Respiratory Rate 24 H 25 H 24 H Respiratory Effort Respiratory Depth Respiratory Pattern Blood Pressure 89/66 L 101/69 102/78 Blood Pressure Mean 73 79 86 Blood Pressure Source Monitor Monitor Monitor Blood Pressure Position Semi-Fowlers Semi-Fowlers Blood Pressure Location Pulse Ox 92 94 94 Oxygen Delivery Method Room Air Room Air Room Air 10/17/23 04:00 10/17/23 05:30 10/17/23 05:41 Temperature 97.7 F L Temperature Source Oral Pulse Rate 115 H 115 H Pulse Strength Respiratory Rate 23 H 24 H Respiratory Effort Non-Labored Respiratory Depth Normal Respiratory Pattern Tachypnea Blood Pressure 104/75 107/87 H Blood Pressure Mean 84 93 Blood Pressure Source Monitor Monitor Blood Pressure Position Semi-Fowlers Blood Pressure Location Right Arm Pulse Ox 92 94 Oxygen Delivery Method Room Air Room Air Room Air 10/17/23 06:00 10/17/23 07:30 10/17/23 07:45 Temperature 97.7 F L Temperature Source Temporal Pulse Rate 115 H 118 H 114 H Pulse Strength Respiratory Rate 26 H 13 24 H Respiratory Effort Respiratory Depth Respiratory Pattern Blood Pressure 97/85 H 118/96 H 118/96 H Blood Pressure Mean 89 103 103 Blood Pressure Source Monitor Monitor Monitor Blood Pressure Position Semi-Fowlers Semi-Fowlers Semi-Fowlers Blood Pressure Location Right Arm Left Arm Left Arm Pulse Ox 94 92 92 Oxygen Delivery Method Room Air Room Air Room Air 10/17/23 08:00 10/17/23 08:03 10/17/23 08:31 Temperature 97.7 F L Temperature Source Temporal Pulse Rate 127 H 112 H 101 H Pulse Strength Respiratory Rate 20 H 19 H 18 Respiratory Effort Respiratory Depth Respiratory Pattern Blood Pressure 115/81 H 115/81 H 128/89 H Blood Pressure Mean 92 92 102 Blood Pressure Source Monitor Monitor Monitor Blood Pressure Position Semi-Fowlers Semi-Fowlers Semi-Fowlers Blood Pressure Location Left Arm Left Arm Left Arm Pulse Ox 93 93 93 Oxygen Delivery Method Room Air Room Air Room Air 10/17/23 08:42 10/17/23 08:42 10/17/23 09:00 Temperature Temperature Source Pulse Rate 100 Pulse Strength Normal (2+) Respiratory Rate 18 Respiratory Effort Normal Non-Labored Respiratory Depth Normal Respiratory Pattern Normal Blood Pressure 113/88 H Blood Pressure Mean 96 Blood Pressure Source Monitor Blood Pressure Position Semi-Fowlers Blood Pressure Location Left Arm Pulse Ox 93 Oxygen Delivery Method Room Air Room Air 10/17/23 09:29 10/17/23 10:00 10/17/23 10:00 Temperature 97.7 F L Temperature Source Temporal Pulse Rate 83 88 87 Pulse Strength Respiratory Rate 19 H 18 18 Respiratory Effort Respiratory Depth Respiratory Pattern Blood Pressure 122/83 H 112/85 H 112/85 H Blood Pressure Mean 96 94 94 Blood Pressure Source Monitor Monitor Monitor Blood Pressure Position Semi-Fowlers Semi-Fowlers Semi-Fowlers Blood Pressure Location Left Arm Left Arm Left Arm Pulse Ox 94 95 96 Oxygen Delivery Method Room Air Room Air Room Air 10/17/23 10:30 10/17/23 11:00 10/17/23 11:30 Temperature Temperature Source Pulse Rate 81 89 90 Pulse Strength Respiratory Rate 17 17 18 Respiratory Effort Respiratory Depth Respiratory Pattern Blood Pressure 128/81 H 119/83 H 120/82 H Blood Pressure Mean 96 95 94 Blood Pressure Source Monitor Monitor Monitor Blood Pressure Position Semi-Fowlers Semi-Fowlers Semi-Fowlers Blood Pressure Location Left Arm Left Arm Left Arm Pulse Ox 95 96 97 Oxygen Delivery Method Room Air Room Air Room Air 10/17/23 11:46 10/17/23 12:12 10/17/23 16:00 Temperature 97.8 F Temperature Source Temporal Pulse Rate 92 92 87 Pulse Strength Respiratory Rate 18 20 H Respiratory Effort Normal Respiratory Depth Normal Respiratory Pattern Normal Blood Pressure 121/84 H 121/84 H 126/82 H Blood Pressure Mean 96 96 Blood Pressure Source Monitor Monitor Blood Pressure Position Semi-Fowlers Semi-Fowlers Blood Pressure Location Left Arm Left Arm Pulse Ox 95 95 Oxygen Delivery Method Room Air Room Air 10/17/23 16:12 Temperature Temperature Source Pulse Rate Pulse Strength Respiratory Rate Respiratory Effort Normal Non-Labored Respiratory Depth Normal Respiratory Pattern Normal Blood Pressure Blood Pressure Mean Blood Pressure Source Blood Pressure Position Blood Pressure Location Pulse Ox Oxygen Delivery Method Room Air Weight Weight: 218 lb 7.649 oz Body Mass Index (BMI) 32.3 Physical Exam Narrative General -A&Ox3, NAD, appears stated age. Vital signs stable, afebrile. Respiratory -normal work of breathing, no intercostal retractions. CV -pulses regular, brisk capillary refill ?4 limbs. Abdomen-soft, nontender, nondistended. No guarding, rigidity, rebound tenderness. Musculoskeletal/neurologic - Patient has considerable weakness with forward elevation of his left shoulder. He is able to actively flex and extend his left elbow. There is 1-2+ pitting edema in both hands and both feet. He has good 5/5 strength in all myotomes of the right upper extremity. Sensation is intact to light touch bilateral upper extremities C5-T1 dermatomes. Minimal tenderness over bilateral clavicle. Nontender over the SC or AC joints. No short arc range of motion pain with the shoulders. Left lower extremity: Ballotable patella with large effusion left knee. Warmth is noted. No overlying erythema. Short arc range of motion pain is noted. Skin is intact. DF, PF, EHL 5/5. Sensation intact light touch L3-S1 dermatomes. DP 2+, brisk cap refill in the toes. Right lower extremity: Ballotable patella with large effusion left knee. Warmth is noted. No overlying erythema. Short arc range of motion pain is noted. Skin is intact. DF, PF, EHL 5/5. Sensation intact light touch L3-S1 dermatomes. DP 2+, brisk cap refill in the toes. Lab / Micro Data 10/17/23 06:16 10/17/23 06:16 Labs: Laboratory Results - last 24 hr 10/16/23 15:46: BUN 72 H, Creatinine 4.11 H, Estim Creat Clear Calc 19.51, Est GFR (MDRD) Af Amer 19 L, Est GFR (MDRD) Non-Af 15 L 10/17/23 06:16: WBC 11.5 H, RBC 3.97 L, Hgb 10.7 L, Hct 31.3 L, MCV 78.8 L, MCH 27.0, MCHC 34.2, RDW Std Deviation 47.2 H, RDW Coeff of Marcos 16.3 H, Plt Count 106 L, MPV 11.7, Immature Gran % (Auto) TOUCH UP EDGER, Neut % (Auto) TOUCH UP EDGER, Lymph % (Auto) TOUCH UP EDGER, [place] % (Auto) TOUCH UP EDGER, Eos % (Auto) TOUCH UP EDGER, Baso % (Auto) TOUCH UP EDGER, Absolute Neuts (auto) 9.7 H , Absolute Lymphs (auto) 0.46 L, Total Counted 100, Neutrophils % (Manual) 84 H, Lymphocytes % (Manual) 4 L, Monocytes % (Manual) 9, Eosinophils % (Manual) 1, Metamyelocytes % 1, Promyelocytes % 1 H, Nucleated RBC % TOUCH UP EDGER, Diff Path Review May foll, Platelet Estimate SLT DEC, Plt Morphology Comment LARGE, RBC Morphology N CHROM, Anisocytosis 1+, Acanthocytes (Spur) RARE, Sodium 130 L, Potassium 4.5, Chloride 100, Carbon Dioxide 17.0 L, Anion Gap 13, BUN 96 H, C reatinine 5.98 H, Estim Creat Clear Calc 13.53, Est GFR (MDRD) Af Amer 12 L, Est GFR (MDRD) Non-Af 10 L, BUN/Creatinine Ratio 16.1, Glucose 112 H, Calcium 7.6 L Assessment & Plan Assessment/Plan (1) Effusion, left knee: PLAN: Concern for septic arthritis versus crystalline arthropathy bilateral knees. Recommended bilateral knee arthrocentesis. Risks, benefits, alternatives to procedure were reviewed with the patient at length and he agreed to proceed. Informed consent obtained. Left knee arthrocentesis procedure note: Informed consent obtained. Skin overlying the superolateral patella of the left knee prepped with chlorhexidine. 21-gauge needle was then inserted in the suprapatellar pouch. 65 cc of turbid yellow-brown was aspirated from the left knee with considerable improvement of effusion. Pressure dressing applied. Patient tolerated procedure well without complication. Right knee arthrocentesis procedure note: Informed consent obtained. Skin overlying the superolateral patella of the right knee prepped with chlorhexidine. 21-gauge needle was then inserted in the suprapatellar pouch. 40 cc of turbid yellow-brown was aspirated from the right knee with considerable improvement of effusion. Pressure dressing applied. Patient tolerated procedure well without complication. Based on the appearance of fluid and history of bacteremia I am concerned for possible septic arthritis in both knees. Fluid was sent to the lab for cell count, Gram stain, culture, and crystal analysis. I expressed my concern to the patient and recommended we prepare for possible arthroscopic I&D of both knees tomorrow depending on the results of fluid analysis. Certainly the risk of anesthesia must be weighed carefully regarding risks and benefits of surgery. If anesthesia is deemed too dangerous for the patient's current medical status, serial aspiration at bedside is considered, albeit not ideal to treat the potential underlying infection. I will provisionally make the patient n.p.o. after midnight tonight for possible surgical intervention tomorrow. I will plan to follow-up regarding the fluid analysis and determine appropriate recommendations based upon these results. Thank you for this consultation. Please not hesitate to call if any questions or concerns arise in the interim. (2) Effusion, right knee: PLAN: See above.
[2023-10-17 18:15] LABS: Pathologist Comment May follow
[2023-10-17 18:24] LABS: Pathologist Comment May follow
[2023-10-17 18:47] LABS: Synovial Fld Mononuclear WBC # 5.013 10^3/ul; Synovial Fld Mononuclear WBC % 14.8 %; Synovial Fld Polynuclear WBC # 28.865 10^3/uL; Synovial Fld Polynuclear WBC % 85.2 %
[2023-10-17 19:02] LABS: Synovial Fld Mononuclear WBC % 16.8 %; Synovial Fld Polynuclear WBC # 33.339 10^3/uL; Synovial Fld Polynuclear WBC % 83.2 %
[2023-10-17 20:43] LABS: RBC /Synovial Fluid 0.014 10^6/uL (0)
[2023-10-17 20:45] LABS: Lymph 7 %; Monocyte /Synovial Fluid 6 %; Neutrophil 87 % (0-25)
[2023-10-17 20:46] LABS: AUTO B FLUID DILUENT BKGD CT WBC <0.1 RBC <0.01 (W<.1,R<.01); Appearance /Synovial Fluid Cloudy (CLEAR); CRYSTALS, BODY FLUID NO CRYSTALS SEEN; Color / Synovial Fluid Yellow (Pale Yellow); Source / Synovial Fluid RIGHT KNEE; Source- Body Fluid SYNOVIAL
[2023-10-17 20:47] LABS: Body Fluid QC Type(s) BF1Q,BF2Q
[2023-10-17 20:50] LABS: Lymph 8 %; Monocyte /Synovial Fluid 11 %; Neutrophil 81 % (0-25)
[2023-10-17 20:52] LABS: AUTO B FLUID DILUENT BKGD CT WBC <0.1 RBC <0.01 (W<.1,R<.01); Appearance /Synovial Fluid Cloudy (CLEAR); Body Fluid QC Type(s) BF1Q,BF2Q; CRYSTALS, BODY FLUID NO CRYSTALS SEEN; Color / Synovial Fluid Yellow (Pale Yellow); Source / Synovial Fluid LEFT KNEE; Source- Body Fluid SYNOVIAL
[2023-10-17] MEDS: Atorvastatin Calcium 80 MG Tablet PO (20:59)
[2023-10-17] MEDS: Cefazolin 1 GM/50 ML BAG IV (21:00)
[2023-10-18] VITALS (23 sets, daily range): BP systolic 96–163; BP diastolic 73–87; PULSE 86–122; RESP 16–37; TEMP 36.4–36.8; O2SAT 92–98; BMI 32.2
--- NOTE | 2023-10-18 | KI_PTH ---
PATIENT: NICKO ROSALES LOC: [facility] U#:[id number] AGE/SX: 68/M ROOM: [facility] RE10/12/[address]: Dr. Jesse Almanzar DO : 1955 BED: 1 DIS: 10/25/2023 SPEC #: [id number] RECD: 10/18/23 09:20 STATUS: RICKY REMichael #: [id number] KIM: 10/18/23 00:[address]: Jesse Almanzar DEPT: SURGICAL PATHOLOGY RECD BY: Katrin Morales ENTERED: 10/18/23 10:09 SP TYPE: KIDNEY BX OTHR DR: MD Dr. Yaw Cooley MD Dr. Nicholas F Kotsonis, MD Dr. Nicholas Spittle, DO Dr. Olga Voroshilova, MD Dr. Paige Pierce, MD Dr. Robert Leininger, MD Tissues: Kidney, NOS Procedures: Fluorescent Antibody (ACH) Fluorescent antibody (ACH) add'l Surgery Specimen Level I HEADER OPERATION: Left renal biopsy PRE-OP DIAGNOSIS: Acute kidney injury TISSUE SUBMITTED: 18 gauge x4 cores- sent to [facility] MICROSCOPIC DIAGNOSIS Per [facility]- Left kidney, CT guided core biopsy: Pauci-cellular suboptimal biopsy. Acute tubule necrosis. Acute tubulointerstitial nephritis. See comment. 10/30/2023 COMMENT Per [facility]- Received a phone call October 18, 2023 (taken by Dr. Marquez) from [facility] which noted specimen had been placed in formalin. Immunofluorescence deferred secondary to improper fixation of tissues. Case briefly discussed with Dr. Greenberg by Dr. Garcia. The findings are supportive of an acute tubule necrosis process as well as an acute tubulointerstitial nephritis. There is limited cortex and glomeruli for evaluation, and immunofluorescence was not possible. Electron microscopy is also deferred; as there were no glomeruli present in the glutaraldehyde portion of tissue. There is no evidence to support a glomerulitis to suggest post-infectious glomerulonephritis; however, biopsy is multifactorial suboptimal. Clinical correlation with follow-up is necessary. Case reviewed by Dr. Marquez who occurs. The findings are supportive of an acute tubule necrosis process as well as an acute tubulointerstitial nephritis. There is limited cortex and glomeruli for evaluation, and immunofluorescence was not possible. Electron microscopy is also deferred; as there was no glomeruli present in the glutaraldehyde portion of tissue. There is no evidence to support a glomerulitis to suggest post-infectious glomerulonephritis; however, biopsy is multifactorial suboptimal. Clinical correlation with follow up is necessary. Case reviewed with Dr. Marquez who concerns. MICROSCOPIC DESCRIPTION Slides are reviewed. Per [facility]- Light microscopy examined with H&E, PAS, Velez silver, trichrome and Congo red stains yields focal suboptimal renal cortex with approximately 4 glomeruli visible for evaluation. The glomeruli show minimal changes without evidence of acute glomerulitis. The biopsy is majority medullary renal tissue. There is focal cortical tubules with nuclear dropout and necrotic features. Several tubules show Tamm-Hors[place] proteinaceous material. There are focal areas of junctional and medullary neutrophilic and eosinophilic infiltrate. There are also several medullary tubules with suppurative neutrophilic debris. There is associated medullary edematous change. The cortical interstitium shows minimal evidence of fibrosis with trichrome stain (estimated at 5%); non specific. There are rare vessels seen without evidence of vasculitis. Congo red stain does not highlight any evidence of amyloid deposition or accumulation. Special stain positive controls are reviewed and deemed adequate. Toluidine blue semithin sections do not yield any glomeruli. Ultrastructure examination is therefore deferred. GROSS DESCRIPTION The specimen is sent entirely to [facility] for diagnosis. Per [facility]- Received in a unspecified fixative (red-colored) in a container labeled with the patient's name and medical record number are 4 cores of red tissue measuring 1.6 x 1.5 x 1.2cm and 0.8cm in length by approximately 0.1cm in width. Additionally received in the container is a piece of cylindrical wood measuring 2.2 x 0.3cm. A gross photograph is taken. The smallest core biopsy is placed in glutaraldehyde for potential electron microscopy. The remaining 3 cores are submitted for permanent histological examination in cassette A1. Immunofluorescence is deferred due to previous formalin fixation. See comment. Mr 10/30/2023
[2023-10-18 04:40] LABS: Absolute Lymphocyte Count 0.38 X10^3/uL (0.83-4.51); Absolute Neutrophil Count 10.3 X10^3/uL (2.0-7.7); Basophil# 0.03 X10^3/uL; Basophil% 0.3 % (0-1); Eosinophil# 0.01 X10^3/uL; Eosinophils% 0.1 % (0-5); Hematocrit 33.4 % (40-54); Hemoglobin 11.5 g/dL (13.0-16.5); Lymphocyte # 0.38 X10^3/ul (0.83-4.51); Lymphocyte % 3.3 % (19-41); Mean Corp Hgb Conc 34.4 g/dL (32-36); Mean Corpuscular Hgb 26.6 pg (27.0-32.0); Mean Corpuscular Volume 77.3 fL (80-94); Mean Platelet Vol. 11.4 fl (6.2-12.0); Monocyte# 0.46 X10^3/uL; Monocyte% 3.9 % (0-10); NRBC Flagged by Analyzer 0 % (0-5); Neutrophil # 10.33 X10^3/uL (2.7-7.7); Neutrophil % 88.5 % (47-70); POSITIVE DIFFERENTIAL YES; Platelet Count 147 K/mm3 (150-450); RBC Distribution Width CV 16.3 % (11.6-14.6); Red Blood Count 4.32 M/mm3 (4.6-6.2); White Blood Count 11.7 K/mm3 (4.4-11.0)
[2023-10-18 05:23] LABS: Anion Gap 11 (5-15); BUN 82 mg/dL (7-18); BUN/Creat Ratio 15.2 RATIO (10-20); Chloride 98 mmol/L (98-107); Creatinine, Serum 5.39 mg/dL (0.70-1.30); EST Glomerular Filtration Rate 11 mL/min (>60); Est Glom Filt Rate - Afr Amer 14 mL/min (>60); Estimated Creatinine Clearance 15.01 ml/min; Glucose 110 mg/dL (74-106); Potassium 4.2 mmol/L (3.5-5.1); Sodium Level 130 mmol/L (136-145)
--- NOTE | 2023-10-18 08:47 | CASEMGMT ---
Discharge Planning A list of?SNF providers including quality and resource use data and consistent with the patient's preferred geographic region, medical needs, and insurance network was created in [employer].? This list was provided to the SW. Tata Nieto Discharge Planning Asst.
[2023-10-18] MEDS: 0.9% Normal Saline (250mL Bag) 250 ML 15 ML IV (08:49)
[2023-10-18] MEDS: Ondansetron 4 MG/2 ML Vial IV (08:49)
[2023-10-18] MEDS: Midazolam 2 MG/2 ML Syringe IV (08:52)
[2023-10-18] MEDS: fentaNYL 100 MCG/2 ML Ampul IV (08:55)
--- NOTE | 2023-10-18 09:00 | WOUNDNOTE ---
Pt is currently off the unit for testing. will change dressings later today.
[2023-10-18] MEDS: Lidocaine 2% (20 ml mdv) 20 ML Vial INFILT (09:03)
--- NOTE | 2023-10-18 10:19 | PCM.OP.PRO ---
Procedure Report Date of Procedure: 10/18/23 Assessment & Plan Assessment/Plan (1) Acute kidney injury: PLAN: PROCEDURE: CT GUIDED LEFT PERCUTANEOUS KIDNEY BIOPSY. ORDERING PROVIDER: Dr. Greenberg INDICATION: Male, 68 years old. Acute renal failure. PROVIDER: AVINASH Chandler CONSENT: Written informed consent was obtained having explained the risks, benefits and alternatives in detail with the patient. The specific risk of hemorrhage requiring further treatment or intervention was detailed and accepted. The patient accepted the risks and agreed to proceed. Laboratory review and clinical assessment was performed. PRE-PROCEDURE SEDATION ASSESSMENT: Current history and physical dictated by referring provider and reviewed. No clinical changes since date of exam. Patient has a Mallampati Score of Class 2 and ASA Class of 3. PROCEDURAL SEDATION PROTOCOL: The Drugs used were: 2 mg Versed, IV, and 50 mcg Fentanyl, IV. The sedation time was: 15 minutes, starting at 8:52 AM and terminated at 9:07 AM. The procedural sedation protocol was independently monitored by the department nurse. RADIATION DOSAGE (If Supplied By Facility): CTDIvol = 22.27 mGy, DLP = 696.26 mGycm Individualized dose optimization techniques were used for this CT. TECHNIQUE: The patient was placed on the CT table in the prone position. Multiple axial images were obtained from the lung base through the caudal extent of the kidneys. An appropriate entry site was identified and a navid made on the skin. The skin overlying the left posterior flank was prepped and draped in sterile fashion. Per patient report, the patient fell asleep on a heating pad, and arrived to the radiology suite with a large dressing applied to his lower back/bilateral flank area. Under this dressing is second-degree martell. The site prepped for biopsy was just lateral of this area, but skin was intact. 2% lidocaine was administered subcutaneously for local anesthesia. Using CT guidance, an 18-gauge coaxial biopsy device was advanced to the avascular zone of the left kidney. A total of 4 core specimens were obtained. Specimens were microscopically reviewed by pathology in the CT suite and placed in formalin solution for further analysis. The needle was withdrawn. Hemostasis was achieved with manual compression and a sterile dressing was applied. The patient tolerated the procedure well without immediate complications. The patient returned to the holding bay in stable condition for nursing monitoring, per protocol. IMPRESSION: 1. Successful CT guided percutaneous left kidney biopsy. Pathology results are pending. 2. Procedural Sedation protocol utilized with independent monitoring by the department nurse. Procedures Radiology Radiology CT Procedures: 36290 Biopsy Kidney Multi Select Codes Radiology Radiology CT Procedures: [id number] CT guidance parenchymal tissue
[2023-10-18] MEDS: Ezetimibe 10 MG Tablet PO (10:20)
[2023-10-18] MEDS: Metoprolol Tartrate 25 MG Tablet PO ×2 (10:20→21:46)
[2023-10-18] MEDS: Senna/Docusate Sodium 1 Tablet 2 TABLET PO (10:20)
[2023-10-18] MEDS: Polyethylene Glycol 3350 17 GM PACKET PO (10:20)
[2023-10-18] MEDS: Aspirin 81 MG TAB.CHEW PO (10:21)
[2023-10-18] MEDS: Pantoprazole Sodium 40 MG Tablet PO ×2 (10:21→21:47)
[2023-10-18] MEDS: Menthol/Lanolin/Calamine/Znox 113 GM Tube 1 APPLIC TOPICAL ×2 (10:21→21:47)
--- NOTE | 2023-10-18 10:47 | PCM.PN.ID ---
Physical Exam Narrative Feeling a little better. Knees less sore. No fever. No abd pain. Const alert and no apparent distress General Appearance: cooperative Resp normal air movement and clear to auscultation bilaterally Cardio regular rate and regular rhythm GI soft to palpation, non-tender and non-distended Extremity General Extremity: edema Skin no rashes or lesions noted ID ID: Route of nutrition/ use of supplements: [] Nutritional Intake: [] IV Site: [] Cantrell Catheter: [] Assessment & Plan Assessment/Plan (1) Sepsis: (2) Acute kidney injury: (3) History of aortic valve replacement: (4) Bacterial infection due to Streptococcus, group G: PLAN: sepsis and LEELA due to Group G strep bacteremia, suspect urinary source. Pending bcx. Cont cefazolin. Concern for L knee septic arthritis, aspiration done by Dr. Baker, fluid wbc 34k, cx pending. With strep bacteremia and prior TAVR, checking TTE, then may need RICKY. Will follow, thank you
--- NOTE | 2023-10-18 11:29 | CASEMGMT ---
RN CM in to provide patient with SNF list, daughter at bedside. RN CM instructed patient and family to review list and provide top 5 preference. RN CM informed patient that SW would be following-up with patient for choices. Patient and daughter had no further questions or concerns. CM will continue to follow this patient and plan for a safe discharge.
--- NOTE | 2023-10-18 14:24 | PN.ORTHO_ITS ---
Documented by User: SHEILA Johns 10/18/23 14:36 Subjective Subjective Patient is a 68-year-old male admitted to [facility] ER 10/12/2023 with urosepsis. Patient was found to have bilateral knee effusions for which he underwent aspiration yesterday with Dr. Baker. There is concern for bilateral septic primary knees. He will likely undergo surgical intervention for bilateral knee arthroscopy tomorrow. Objective Data Objective Data Vital Signs: Vital Signs Temp Pulse Resp BP Pulse Ox O2 Del Method O2 Flow Rate 98.1 F 86 31 H 114/79 95 Room Air 2 10/18/23 12:15 10/18/23 12:15 10/18/23 12:15 10/18/23 12:15 10/18/23 12:52 10/18/23 12:15 10/18/23 09:10 Oxygen Flow Rate (L/min) 2 Oxygen Delivery Method Room Air Weight: 98.8 kg Body Mass Index (BMI) 32.2 Intake & Output: Intake and Output for Last 24 Hours 10/16/23 10/17/23 10/18/23 23:59 23:59 23:59 Intake Total 290 / 290 400 / 700 690 / 690 Output Total 1895 / 1895 1150 / 1150 0 / 0 Balance -1605 / -1605 -750 / -450 690 / 690 Lab / Micro Data 10/18/23 04:28 10/18/23 04:28 Labs: Laboratory Results - last 24 hr 10/17/23 : Fluid Source Cancelled, Fluid Color Cancelled, Fluid Appearance Cancelled, Fluid WBC Cancelled, Fluid RBC Cancelled, Fluid Tot Cell Count Cancelled, Fld Polynuclear WBCs # Cancelled, Fld Polynuclear WBCs % Cancelled, Fluid Mononuclear WBCs Cancelled, Fld Mononuclear WBCs % Cancelled, Fluid Neutrophils Cancelled, Fluid Lymphocytes Cancelled, Fluid Monocytes Cancelled, Fluid Plasma Cells Cancelled, Fluid Macrophages Cancelled, Fld Mesothelial Cells Cancelled, Fluid Other Cells Cancelled, Fluid Crystals NO CRYSTALS SEEN 10/17/23 : Fluid Crystals NO CRYSTALS SEEN, Fluid Crystal Source SYNOVIAL 10/17/23 : Fluid Crystal Source SYNOVIAL, Fl Crystal Path Review Will follow 10/17/23 : Fl Crystal Path Review Will follow, Fl Pathologist Comment Cancelled, Fluid Comment 2 Cancelled, Synovial Source RIGHT KNEE 10/17/23 : Synovial Source LEFT KNEE, Synovial Color Yellow 10/17/23 : Synovial Color Yellow, Synovial Appearance Cloudy 10/17/23 : Synovial Appearance Cloudy, Synovial WBC 48.7400 H 10/17/23 : Synovial WBC 32.3400 H, Synovial RBC 0.014 H 10/17/23 : Synovial RBC 0.020 H, Synovial Tot Cell Ct 50.1000 H 10/17/23 : Synovial Tot Cell Ct 33.0600 H, Synov Polynuclear WBCs 33.339 10/17/23 : Synov Polynuclear WBCs 28.865, Synov Mononuclear WBCs 6.750 10/17/23 : Synov Mononuclear WBCs 5.013, Synovial Neutrophils 87 H 10/17/23 : Synovial Neutrophils 81 H, Synovial Lymphocytes 7 10/17/23 : Synovial Lymphocytes 8, Synovial Monocytes 6 10/17/23 : Synovial Monocytes 11, Synovial Polynuclear % 83.2 10/17/23 : Synovial Polynuclear % 85.2, Synovial Mononuclear % 16.8 10/17/23 : Synovial Mononuclear % 14.8, Synovial Path Comment May follow 10/17/23 : Synovial Path Comment May follow 10/18/23 04:28: WBC 11.7 H, RBC 4.32 L, Hgb 11.5 L, Hct 33.4 L, MCV 77.3 L, MCH 26.6 L, MCHC 34.4, RDW Std Deviation 46.0 H, RDW Coeff of Marcos 16.3 H, Plt Count 147 L, MPV 11.4, Immature Gran % (Auto) 3.900 H, Neut % (Auto) 88.5 H, Lymph % (Auto) 3.3 L, [place] % (Auto) 3.9, Eos % (Auto) 0.1, Baso % (Auto) 0.3, Absolute Neuts (auto) 10.3 H, Absolute Lymphs (auto) 0.38 L, Nucleated RBC % 0, Sodium 130 L, Potassium 4.2, Chloride 98, Carbon Dioxide 21.0, Anion Gap 11, BUN 82 H, Creatinine 5.39 H, Estim Creat Clear Calc 15.01, Est GFR (MDRD) Af Amer 14 L, E st GFR (MDRD) Non-Af 11 L, BUN/Creatinine Ratio 15.2, Glucose 110 H, Calcium 8.0 L Micro: Microbiology 10/17/23 Unknown Fluid - Synovial (joint) Body Fluid Culture - Preliminary No growth-Final to follow 10/17/23 Unknown Fluid - Synovial (joint) Body Fluid Culture - Preliminary No growth-Final to follow 10/14/23 11:25 Blood Culture (Wb) - Line Draw Blood Culture - Preliminary No growth in 48 hours. 10/12/23 16:30 Blood Culture (Wb) - Venous Blood Culture - Final Streptococcus group G 10/12/23 16:30 Blood Culture (Wb) - Venous Bacteria Detection (PCR) - Final Strep not Strep pneumo 10/12/23 16:30 Blood Culture (Wb) - Venous Blood Culture - Final Streptococcus group G 10/12/23 16:41 Urine Catheter - Cantrell Urine Culture - Final Streptococcus group G Radiography Diagnostic Testing: Radiology Impression Echocardiogram 10/17/23 13:40 Interpretation Summary Limited echocardiogram with limited views. The left ventricular ejection fraction is 55 %. Moderate sized clear pericardial effusion. Moderate to large size organized effusion versus pericardial tumor. Recommend CT or MRI for further evaluation. Ordering Physician: Scout Mann Referring Physician: DIANNA LAUREANO Performed By: Kita Keith and Student Knee X-Ray 10/17/23 16:48 IMPRESSION: Moderate effusion Electronically Signed: Jp Pacheco MD at 23:53 EDT , Physical Exam Narrative Bilateral knees with 3+ effusion No significant erythema Knees are warm to touch Significant painful passive range of motion Sensation is intact throughout bilateral extremities Dorsiflexion plantarflexion strength 5/5 Cap refill and toes bilaterally less than 3 seconds Assessment & Plan Assessment/Plan (1) Effusion, right knee: PLAN: Right knee aspiration procedure note: Consent was obtained verbally at bedside. Skin overlying the superolateral patella of the right knee prepped with chlorhexidine in standard fashion. sterile gloves applied. 18-gauge needle was then inserted in the suprapatellar pouch. 70 cc of yellow-tinged mildly turbid serous fluid was aspirated from the knee with considerable improvement of effusion. Pressure dressing applied. Patient tolerated procedure well without complication. left knee aspiration procedure note: Consent was obtained verbally at bedside. Skin overlying the superolateral patella of the left knee prepped with chlorhexidine in standard fashion. sterile gloves applied. 18-gauge needle was then inserted in the suprapatellar pouch. 65 cc of serosanguineous mildly turbid fluid was aspirated from the knee with considerable improvement of effusion. Pressure dressing applied. Patient tolerated procedure well without complication. -Patient tolerated procedure well -Compression dressing was applied to bilateral knees (2) Effusion, left knee: PLAN: Plan Documented by User: Dr. Kody Baker, 10/18/23 14:48 Subjective Subjective Patient seen and evaluated. He reports improvement in his knee pain. He states he feels a little bit better overall. Denies any fevers, chills, nausea or vomiting, chest pain or shortness of breath. Underwent renal biopsy this morning. Objective Data Lab / Micro Data 10/18/23 04:28 10/18/23 04:28 Physical Exam Narrative General-alert and oriented x 3, NAD Musculoskeletal- bilateral knees with 3+ effusion No erythema Knees are warm to touch Significant painful passive range of motion Sensation is intact throughout bilateral extremities Dorsiflexion plantarflexion strength 5/5 Cap refill and toes bilaterally less than 3 seconds Assessment & Plan Assessment/Plan (1) Effusion, right knee: PLAN: Fluid analysis appears borderline for an inflammatory process versus septic arthritis in both knees. Gram stain is pending and cultures are no growth to date. Given the patient's current response to antibiotic therapy and improved pain with aspiration, I recommended we continue with close clinical observation and antibiotic therapy per infectious disease. I did recommend a repeat arthrocentesis of both knees for symptom control as well as therapeutic treatment for possible septic arthritis. Informed consent was obtained. See procedure note below for details. Right knee aspiration procedure note: Consent was obtained verbally at bedside. Skin overlying the superolateral patella of the right knee prepped with chlorhexidine in standard fashion. sterile gloves applied. 18-gauge needle was then inserted in the suprapatellar pouch. 70 cc of yellow-tinged mildly turbid serous fluid was aspirated from the knee with considerable improvement of effusion. Pressure dressing applied. Patient tolerated procedure well without complication. left knee aspiration procedure note: Consent was obtained verbally at bedside. Skin overlying the superolateral patella of the left knee prepped with chlorhexidine in standard fashion. sterile gloves applied. 18-gauge needle was then inserted in the suprapatellar pouch. 65 cc of serosanguineous mildly turbid fluid was aspirated from the knee with considerable improvement of effusion. Pressure dressing applied. Patient tolerated procedure well without complication. -Patient tolerated procedure well -Compression dressing was applied to bilateral knees At this time, I feel that close clinical monitoring as well as following the patient's Gram stain and cultures will help to guide treatment with his recurrent knee effusions. Fluid does appear improved today however certainly large effusions have redeveloped in less than 24 hours. I will provisionally make the patient n.p.o. tomorrow for possible need for arthroscopic I&D. (2) Effusion, left knee: PLAN: See above
--- NOTE | 2023-10-18 14:30 | PCM.PN.REN ---
Documented by User: GREG Rutledge 10/18/23 14:48 Subjective Subjective Resting in bed, alert. Daughter at bedside. Objective Data Objective Data Vital Signs: Vital Signs Temp Pulse Resp BP Pulse Ox O2 Del Method O2 Flow Rate 98.1 F 86 31 H 114/79 95 Room Air 2 10/18/23 12:15 10/18/23 12:15 10/18/23 12:15 10/18/23 12:15 10/18/23 12:52 10/18/23 12:15 10/18/23 09:10 Oxygen Flow Rate (L/min) 2 Oxygen Delivery Method Room Air Weight: 98.8 kg Body Mass Index (BMI) 32.2 Intake & Output: Intake and Output for Last 24 Hours 10/16/23 10/17/23 10/18/23 23:59 23:59 23:59 Intake Total 290 / 290 400 / 700 690 / 690 Output Total 1895 / 1895 1150 / 1150 0 / 0 Balance -1605 / -1605 -750 / -450 690 / 690 Lab / Micro Data 10/18/23 04:28 10/18/23 04:28 Labs: Laboratory Results - last 24 hr 10/17/23 : Fluid Source Cancelled, Fluid Color Cancelled, Fluid Appearance Cancelled, Fluid WBC Cancelled, Fluid RBC Cancelled, Fluid Tot Cell Count Cancelled, Fld Polynuclear WBCs # Cancelled, Fld Polynuclear WBCs % Cancelled, Fluid Mononuclear WBCs Cancelled, Fld Mononuclear WBCs % Cancelled, Fluid Neutrophils Cancelled, Fluid Lymphocytes Cancelled, Fluid Monocytes Cancelled, Fluid Plasma Cells Cancelled, Fluid Macrophages Cancelled, Fld Mesothelial Cells Cancelled, Fluid Other Cells Cancelled, Fluid Crystals NO CRYSTALS SEEN 10/17/23 : Fluid Crystals NO CRYSTALS SEEN, Fluid Crystal Source SYNOVIAL 10/17/23 : Fluid Crystal Source SYNOVIAL, Fl Crystal Path Review Will follow 10/17/23 : Fl Crystal Path Review Will follow, Fl Pathologist Comment Cancelled, Fluid Comment 2 Cancelled, Synovial Source RIGHT KNEE 10/17/23 : Synovial Source LEFT KNEE, Synovial Color Yellow 10/17/23 : Synovial Color Yellow, Synovial Appearance Cloudy 10/17/23 : Synovial Appearance Cloudy, Synovial WBC 48.7400 H 10/17/23 : Synovial WBC 32.3400 H, Synovial RBC 0.014 H 10/17/23 : Synovial RBC 0.020 H, Synovial Tot Cell Ct 50.1000 H 10/17/23 : Synovial Tot Cell Ct 33.0600 H, Synov Polynuclear WBCs 33.339 10/17/23 : Synov Polynuclear WBCs 28.865, Synov Mononuclear WBCs 6.750 10/17/23 : Synov Mononuclear WBCs 5.013, Synovial Neutrophils 87 H 10/17/23 : Synovial Neutrophils 81 H, Synovial Lymphocytes 7 10/17/23 : Synovial Lymphocytes 8, Synovial Monocytes 6 10/17/23 : Synovial Monocytes 11, Synovial Polynuclear % 83.2 10/17/23 : Synovial Polynuclear % 85.2, Synovial Mononuclear % 16.8 10/17/23 : Synovial Mononuclear % 14.8, Synovial Path Comment May follow 10/17/23 : Synovial Path Comment May follow 10/18/23 04:28: WBC 11.7 H, RBC 4.32 L, Hgb 11.5 L, Hct 33.4 L, MCV 77.3 L, MCH 26.6 L, MCHC 34.4, RDW Std Deviation 46.0 H, RDW Coeff of Marcos 16.3 H, Plt Count 147 L, MPV 11.4, Immature Gran % (Auto) 3.900 H, Neut % (Auto) 88.5 H, Lymph % (Auto) 3.3 L, [place] % (Auto) 3.9, Eos % (Auto) 0.1, Baso % (Auto) 0.3, Absolute Neuts (auto) 10.3 H, Absolute Lymphs (auto) 0.38 L, Nucleated RBC % 0, Sodium 130 L, Potassium 4.2, Chloride 98, Carbon Dioxide 21.0, Anion Gap 11, BUN 82 H, Creatinine 5.39 H, Estim Creat Clear Calc 15.01, Est GFR (MDRD) Af Amer 14 L, Est GFR (MDRD) Non-Af 11 L, BUN/Creatinine Ratio 15.2, Glucose 110 H, Calcium 8.0 L Micro: Microbiology 10/17/23 Unknown Fluid - Synovial (joint) Body Fluid Culture - Preliminary No growth-Final to follow 10/17/23 Unknown Fluid - Synovial (joint) Body Fluid Culture - Preliminary No growth-Final to follow 10/14/23 11:25 Blood Culture (Wb) - Line Draw Blood Culture - Preliminary No growth in 48 hours. 10/12/23 16:30 Blood Culture (Wb) - Venous Blood Culture - Final Streptococcus group G 10/12/23 16:30 Blood Culture (Wb) - Venous Bacteria Detection (PCR) - Final Strep not Strep pneumo 10/12/23 16:30 Blood Culture (Wb) - Venous Blood Culture - Final Streptococcus group G 10/12/23 16:41 Urine Catheter - Cantrell Urine Culture - Final Streptococcus group G Radiography Diagnostic Testing: Radiology Impression Echocardiogram 10/17/23 13:40 Interpretation Summary Limited echocardiogram with limited views. The left ventricular ejection fraction is 55 %. Moderate sized clear pericardial effusion. Moderate to large size organized effusion versus pericardial tumor. Recommend CT or MRI for further evaluation. Ordering Physician: Scout Mann Referring Physician: DIANNA LAUREANO Performed By: Kita Keith and Student Knee X-Ray 10/17/23 16:48 IMPRESSION: Moderate effusion Electronically Signed: Jp Pacheco MD at 23:53 EDT Reading Location ID and State: [address] [place] [address] Tel , Service support , Physical Exam Narrative Alert and oriented, no apparent distress S1, S2, RRR Diminished breath sounds Abdomen soft, nontender Edema bilateral lower legs Non-tunneled temporary right IJ hemodialysis catheter dressing clean, dry and intact Cardio Cardio Narrative: tachycardia Assessment & Plan Assessment/Plan (1) Acute kidney injury: PLAN: 1. Acute renal failure. Normal baseline creatinine. As recent as 10/05/2023, his creatinine was normal at 1.0. Extensive history of kidney stone. He had a CT scan beginning of September where there were kidney stones with mild hydronephrosis. Repeat CT scan here on admission did not show any hydronephrosis. Essentially anuric since admission. Cantrell removed. Started on dialysis 10/15/2023. Had 3 days in a row HD, no HD today. Likely plan for HD tomorrow. Patient has tolerated dialysis with fluid removal (almost 4L total). Had kidney biopsy today. Discussed nephrology plan with patient's daughter at bedside. Has Streptococcus group G and blood in the urine. Repeat cultures are negative from 10/13. ID consulted. Currently receiving cefazolin, Repeated BC 10/16 pending bilateral knee effusions s/p aspiration echo done on 10/17: EF 55%, moderate to large sized pericardial effusion versus pericardial tumo (had echo September 2023 EF 56%, no pericardial effusion). Patient to have noncontrast CT of chest. 2. Thrombocytopenia, Presumably this is sepsis related. Severe thrombocytopenia on admission. No evidence of schistocytes on peripheral smear. LDH was high but haptoglobin was normal. Platelet counts are improving, up to 147 now. 3. Reviewed old records from [facility]. He has known history of esophageal adenocarcinoma initially diagnosed in 2020. Had surgery, chemotherapy with carboplatin, adjuvant chemotherapy with nivolumab. Currently on active surveillance. Last MRI showed possible spinal lesions. He had a T-spine biopsy in September which did not show any malignancy. He follows with oncology here in [facility] in [place]. Documented by User: Dr. Gaudencio Greenberg MD 10/18/23 19:51 Objective Data Lab / Micro Data 10/18/23 04:28 10/18/23 04:28 Assessment & Plan Assessment/Plan (1) Acute kidney injury: PLAN: 1. Acute renal failure. Normal baseline creatinine. As recent as 10/05/2023, his creatinine was normal at 1.0. Extensive history of kidney stone. He had a CT scan beginning of September where there were kidney stones with mild hydronephrosis. Repeat CT scan here on admission did not show any hydronephrosis. Essentially anuric since admission. Cantrell removed. Started on dialysis 10/15/2023. Had 3 days in a row HD, no HD today. Likely plan for HD tomorrow. Patient has tolerated dialysis with fluid removal (almost 4L total). Had kidney biopsy today. Discussed nephrology plan with patient's daughter at bedside. Has Streptococcus group G and blood in the urine. Repeat cultures are negative from 10/13. ID consulted. Currently receiving cefazolin, Repeated BC 10/16 pending bilateral knee effusions s/p aspiration echo done on 10/17: EF 55%, moderate to large sized pericardial effusion versus pericardial tumo (had echo September 2023 EF 56%, no pericardial effusion). Patient to have noncontrast CT of chest. 2. Thrombocytopenia, Presumably this is sepsis related. Severe thrombocytopenia on admission. No evidence of schistocytes on peripheral smear. LDH was high but haptoglobin was normal. Platelet counts are improving, up to 147 now. 3. Reviewed old records from [facility]. He has known history of esophageal adenocarcinoma initially diagnosed in 2020. Had surgery, chemotherapy with carboplatin, adjuvant chemotherapy with nivolumab. Currently on active surveillance. Last MRI showed possible spinal lesions. He had a T-spine biopsy in September which did not show any malignancy. He follows with oncology here in [facility] in [place]. dw [place]. HD tomorrow. biopsy today. Ortho note reviewed. septic knee.
[2023-10-18 14:46] LABS: Pathologist Review Reviewed
[2023-10-18 14:47] LABS: Pathologist Review Reviewed
[2023-10-18 14:47] LABS: Pathologist Review Reviewed
--- NOTE | 2023-10-18 14:47 | CT_ITS ---
STUDY: CT CHEST WITHOUT CONTRAST REASON FOR EXAM: Male, 68 years old. Possible pleural effusion -- no contrast RADIATION DOSAGE (If Supplied By Facility): CTDIvol = ( 19.80 ) mGy, DLP = ( 818.83 ) mGycm TECHNIQUE: Transaxial imaging was performed without the administration of intravenous contrast material. Individualized dose optimization techniques were used for this CT. COMPARISON: Comparison is made with prior chest radiograph dated October 15, 2023. FINDINGS: CHEST Bilateral pleural effusions left greater than right. Small amount of fluid is seen in the right major fissure. There is evidence of compressive atelectasis at the lung bases more prominent on the left side. There are calcifications of the coronary arteries. Sternal cerclage wires and vascular clips are present from a prior sternotomy and coronary artery bypass graft procedure (CABG). Normal mediastinum. Normal hilar regions. Normal unenhanced pulmonary arteries. There is atherosclerotic calcification of the aortic arch with tortuosity and elongation of the aortic arch and descending thoracic aorta. There are multi-level degenerative changes of the thoracic spine. Large anal hernia. CT/Chest without Contrast IMPRESSION: Bilateral pleural effusions left greater than right with bibasilar compressive atelectasis more prominent on the left side. Electronically Signed: Nino Wood MD at 15:05 EDT ,
--- NOTE | 2023-10-18 18:01 | PCM.PN.HOSP ---
Reason for Visit Reason for Visit: Diagnoses Sepsis, unspecified organism (10/12/23) Other streptococcus as the cause of diseases classified elsewhere (10/12/23) Thrombocytopenia, unspecified (10/12/23) Effusion, right knee (10/12/23) Effusion, left knee (10/12/23) Acute kidney failure, unspecified (10/12/23) Unspecified jaundice (10/12/23) Presence of aortocoronary bypass graft (10/12/23) Presence of prosthetic heart valve (10/12/23) Subjective Subjective Patient was seen and examined today, I received a call from cardiology regarding his echocardiogram which Dr. 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 Patient's last echocardiogram which was done the end of September of this year was unremarkable. Patient's blood culture showing no growth, culture from the patient's arthrocentesis is pending at this time-there were +1 white blood cells and +1 red blood cells but no organisms. I talked briefly with the patient's who was in the room at the time of my examination today. I also talked briefly with nephrology today, patient will be undergoing dialysis tomorrow. Patient underwent a CT-guided left percutaneous kidney biopsy today. Objective Data Objective Data Vital Signs: Vital Signs Temp Pulse Resp BP Pulse Ox O2 Del Method O2 Flow Rate 98.1 F 111 H 27 H 124/73 H 93 Room Air 2 10/18/23 15:15 10/18/23 15:15 10/18/23 15:15 10/18/23 15:15 10/18/23 15:15 10/18/23 15:56 10/18/23 09:10 Oxygen Flow Rate (L/min) 2 Oxygen Delivery Method Room Air Weight: 98.8 kg Body Mass Index (BMI) 32.2 Intake & Output: Intake and Output for Last 24 Hours 10/16/23 10/17/23 10/18/23 23:59 23:59 23:59 Intake Total 290 / 290 400 / 700 690 / 690 Output Total 1895 / 1895 1150 / 1150 0 / 0 Balance -1605 / -1605 -750 / -450 690 / 690 Lab / Micro Data 10/18/23 04:28 10/18/23 04:28 Labs: Laboratory Results - last 24 hr 10/17/23 06:16: Diff Path Review Reviewed 10/17/23 : Fluid Source Cancelled, Fluid Color Cancelled, Fluid Appearance Cancelled, Fluid WBC Cancelled, Fluid RBC Cancelled, Fluid Tot Cell Count Cancelled, Fld Polynuclear WBCs # Cancelled, Fld Polynuclear WBCs % Cancelled, Fluid Mononuclear WBCs Cancelled, Fld Mononuclear WBCs % Cancelled, Fluid Neutrophils Cancelled, Fluid Lymphocytes Cancelled, Fluid Monocytes Cancelled, Fluid Plasma Cells Cancelled, Fluid Macrophages Cancelled, Fld Mesothelial Cells Cancelled, Fluid Other Cells Cancelled, Fluid Crystals NO CRYSTALS SEEN 10/17/23 : Fluid Crystals NO CRYSTALS SEEN, Fluid Crystal Source SYNOVIAL 10/17/23 : Fluid Crystal Source SYNOVIAL, Fl Pathologist Comment Cancelled, Fluid Comment 2 Cancelled, Synovial Source RIGHT KNEE 10/17/23 : Synovial Source LEFT KNEE, Synovial Color Yellow 10/17/23 : Synovial Color Yellow, Synovial Appearance Cloudy 10/17/23 : Synovial Appearance Cloudy, Synovial WBC 48.7400 H 10/17/23 : Synovial WBC 32.3400 H, Synovial RBC 0.014 H 10/17/23 : Synovial RBC 0.020 H, Synovial Tot Cell Ct 50.1000 H 10/17/23 : Synovial Tot Cell Ct 33.0600 H, Synov Polynuclear WBCs 33.339 10/17/23 : Synov Polynuclear WBCs 28.865, Synov Mononuclear WBCs 6.750 10/17/23 : Synov Mononuclear WBCs 5.013, Synovial Neutrophils 87 H 10/17/23 : Synovial Neutrophils 81 H, Synovial Lymphocytes 7 10/17/23 : Synovial Lymphocytes 8, Synovial Monocytes 6 10/17/23 : Synovial Monocytes 11, Synovial Polynuclear % 83.2 10/17/23 : Synovial Polynuclear % 85.2, Synovial Mononuclear % 16.8 10/17/23 : Synovial Mononuclear % 14.8, Synovial Path Comment May follow 10/17/23 : Synovial Path Comment May follow 10/18/23 04:28: WBC 11.7 H, RBC 4.32 L, Hgb 11.5 L, Hct 33.4 L, MCV 77.3 L, MCH 26.6 L, MCHC 34.4, RDW Std Deviation 46.0 H, RDW Coeff of Marcos 16.3 H, Plt Count 147 L, MPV 11.4, Immature Gran % (Auto) 3.900 H, Neut % (Auto) 88.5 H, Lymph % (Auto) 3.3 L, [place] % (Auto) 3.9, Eos % (Auto) 0.1, Baso % (Auto) 0.3, Absolute Neuts (auto) 10.3 H, Absolute Lymphs (auto) 0.38 L, Nucleated RBC % 0, Sodium 130 L, Potassium 4.2, Chloride 98, Carbon Dioxide 21.0, Anion Gap 11, BUN 82 H, Creatinine 5.39 H, Estim Creat Clear Calc 15.01, Est GFR (MDRD) Af Amer 14 L, Est GFR (MDRD) Non-Af 11 L, BUN/Creatinine Ratio 15.2, Glucose 110 H, Calcium 8.0 L Micro: Microbiology 10/17/23 Unknown Fluid - Synovial (joint) Gram Stain - Final 10/17/23 Unknown Fluid - Synovial (joint) Body Fluid Culture - Preliminary No growth-Final to follow 10/17/23 Unknown Fluid - Synovial (joint) Gram Stain - Final 10/17/23 Unknown Fluid - Synovial (joint) Body Fluid Culture - Preliminary No growth-Final to follow 10/14/23 11:25 Blood Culture (Wb) - Line Draw Blood Culture - Preliminary No growth in 48 hours. 10/12/23 16:30 Blood Culture (Wb) - Venous Blood Culture - Final Streptococcus group G 10/12/23 16:30 Blood Culture (Wb) - Venous Bacteria Detection (PCR) - Final Strep not Strep pneumo 10/12/23 16:30 Blood Culture (Wb) - Venous Blood Culture - Final Streptococcus group G 10/12/23 16:41 Urine Catheter - Cantrell Urine Culture - Final Streptococcus group G Radiography Diagnostic Testing: Radiology Impression Echocardiogram 10/17/23 13:40 Interpretation Summary Limited echocardiogram with limited views. The left ventricular ejection fraction is 55 %. Moderate sized clear pericardial effusion. Moderate to large size organized effusion versus pericardial tumor. Recommend CT or MRI for further evaluation. Ordering Physician: Scout Mann Referring Physician: DIANNA LAUREANO Performed By: Kita Keith and Student Knee X-Ray 10/17/23 16:48 IMPRESSION: Moderate effusion Electronically Signed: Jp Pacheco MD at 23:53 EDT , Chest CT 10/18/23 14:47 IMPRESSION: Bilateral pleural effusions left greater than right with bibasilar compressive atelectasis more prominent on the left side. Electronically Signed: Nino Wood MD at 15:05 EDT , Physical Exam Const alert and no apparent distress General Appearance: cooperative, well kempt and well developed Orientation / Consciousness: awake, oriented to person and oriented to place HEENT normocephalic, head/scalp atraumatic and moist oral mucous membranes Eyes PERRL, EOMs intact bilaterally and conjunctivae normal Neck supple, no JVD, thyroid normal and no carotid bruits General: trachea midline Resp normal respiratory effort, no retractions, no use of accessory muscles and clear to auscultation bilaterally Auscultation: Negative for rales, rhonchi or wheezes Cardio regular rate, regular rhythm, S1 normal heart sound, S2 normal heart sound, no murmurs, no rub and no gallops GI normal to inspection, nondistended, normoactive bowel sounds, soft to palpation, non-tender and non-distended Extremity no clubbing, cyanosis or edema Skin no rashes or lesions noted General Skin Exam: no breakdown Neuro CN's II-XII intact bilaterally, no focal motor deficits and no sensory deficits noted Sensorium / Orientation: awake, alert, oriented to person and oriented to place Speech: speech normal Psych affect normal Assessment & Plan Assessment/Plan (1) Sepsis: PLAN: Plan 1. Sepsis secondary to acute cystitis and bacteremia from Streptococcus-patient is being seen by infectious diseases, antibiotics are being adjusted per infectious diseases #2 acute kidney injury-possibly secondary to ATN, patient underwent a renal biopsy today, he will undergo dialysis tomorrow #3 coronary artery disease-patient is stable at this time, he will remain on his present medications #4 hyperlipidemia-patient will remain on his present medications #5 bilateral pleural effusions-secondary to acute kidney injury, continue dialysis, patient's echocardiogram today showed a left ventricular ejection fraction which was normal. Total clinical time spent by myself addressing the patient's medical issues, reviewing all of his data, and collaborating with the patient's care team: 55 minutes Charges/Coding Visit Charges Inpatient E&M: 38653 Subs Hosp L2
[2023-10-18] MEDS: 0.9% Saline Lock 10 ML Syringe IV (21:46)
[2023-10-18] MEDS: Atorvastatin Calcium 80 MG Tablet PO (21:46)
[2023-10-18] MEDS: Cefazolin 1 GM/50 ML BAG IV (21:46)
[2023-10-19] VITALS (24 sets, daily range): BP systolic 82–234; BP diastolic 68–87; PULSE 82–128; RESP 17–34; TEMP 36.4–36.8; O2SAT 94–100; BMI 32.4; BMI 31.6
[2023-10-19 05:12] LABS: Absolute Lymphocyte Count 0.33 X10^3/uL (0.83-4.51); Absolute Neutrophil Count 9.3 X10^3/uL (2.0-7.7); Basophil# 0.01 X10^3/uL; Basophil% 0.1 % (0-1); Eosinophil# 0.05 X10^3/uL; Eosinophils% 0.5 % (0-5); Hematocrit 31.6 % (40-54); Hemoglobin 10.7 g/dL (13.0-16.5); Lymphocyte # 0.33 X10^3/ul (0.83-4.51); Lymphocyte % 3.1 % (19-41); Mean Corp Hgb Conc 33.9 g/dL (32-36); Mean Corpuscular Volume 79.6 fL (80-94); Mean Platelet Vol. 11.7 fl (6.2-12.0); Monocyte# 0.38 X10^3/uL; Monocyte% 3.6 % (0-10); NRBC Flagged by Analyzer 0 % (0-5); Neutrophil # 9.32 X10^3/uL (2.7-7.7); Neutrophil % 88.4 % (47-70); POSITIVE DIFFERENTIAL YES; Platelet Count 176 K/mm3 (150-450); RBC Distribution Width CV 16.5 % (11.6-14.6); RBC Distribution Width SD 47.8 fl (35.1-43.9); Red Blood Count 3.97 M/mm3 (4.6-6.2); White Blood Count 10.5 K/mm3 (4.4-11.0)
[2023-10-19 05:47] LABS: Albumin, Serum 1.6 g/dL (3.2-5.0); BUN 107 mg/dL (7-18); BUN/Creat Ratio 15.5 RATIO (10-20); Calcium,Total 7.6 mg/dL (8.5-10.1); Chloride 99 mmol/L (98-107); Creatinine, Serum 6.92 mg/dL (0.70-1.30); EST Glomerular Filtration Rate 8 mL/min (>60); Est Glom Filt Rate - Afr Amer 10 mL/min (>60); Estimated Creatinine Clearance 11.71 ml/min; Glucose 115 mg/dL (74-106); Phosphorus 7.2 mg/dL (2.5-4.9); Potassium 4.4 mmol/L (3.5-5.1); Sodium Level 132 mmol/L (136-145)
[2023-10-19] MEDS: PureFlow B 2K Dialysis Soln 1 BAG 6 BAG PF (08:15)
[2023-10-19] MEDS: 0.9% Saline Lock 10 ML Syringe IV (08:15)
[2023-10-19] MEDS: 0.9% Normal Saline 1,000 ML IV.SOLN. 1000 ML OPERA.SITE (08:15)
[2023-10-19] MEDS: Aspirin 81 MG TAB.CHEW PO (08:41)
[2023-10-19] MEDS: Ezetimibe 10 MG Tablet PO (08:41)
[2023-10-19] MEDS: Pantoprazole Sodium 40 MG Tablet PO ×2 (08:42→21:38)
--- NOTE | 2023-10-19 09:16 | PCM.PN.REN ---
Subjective Subjective looks better overall. no urine yet. Objective Data Objective Data Vital Signs: Vital Signs Temp Pulse Resp BP Pulse Ox O2 Del Method O2 Flow Rate 97.6 F L 126 H 29 H 98/72 96 Room Air 2 10/19/23 09:05 10/19/23 09:05 10/19/23 09:05 10/19/23 09:05 10/19/23 09:05 10/19/23 09:09 10/18/23 09:10 Oxygen Flow Rate (L/min) 2 Oxygen Delivery Method Room Air Weight: 99.3 kg Body Mass Index (BMI) 32.4 Intake & Output: Intake and Output for Last 24 Hours 10/17/23 10/18/23 10/19/23 23:59 23:59 23:59 Intake Total 400 / 700 860 / 860 100 / 100 Output Total 1150 / 1150 0 / 0 Balance -750 / -450 860 / 860 100 / 100 Lab / Micro Data 10/19/23 04:52 10/19/23 04:52 Labs: Laboratory Results - last 24 hr 10/17/23 06:16: Diff Path Review Reviewed 10/19/23 04:52: WBC 10.5, RBC 3.97 L, Hgb 10.7 L, Hct 31.6 L, MCV 79.6 L, MCH 27.0, MCHC 33.9, RDW Std Deviation 47.8 H, RDW Coeff of Marcos 16.5 H, Plt Count 176, MPV 11.7, Immature Gran % (Auto) 4.300 H, Neut % (Auto) 88.4 H, Lymph % (Auto) 3.1 L, [place] % (Auto) 3.6, Eos % (Auto) 0.5, Baso % (Auto) 0.1, Absolute Neuts (auto) 9.3 H, Absolute Lymphs (auto) 0.33 L, Nucleated RBC % 0, Sodium 132 L, Potassium 4.4, Chloride 99, Carbon Dioxide 19.0 L, BUN 107 H*, Creatinine 6.92 H, Estim Creat Clear Calc 11.71, Est GFR (MDRD) Af Amer 10 L, Est GFR (MDRD) Non-Af 8 L, BUN/Creatinine Ratio 15.5, Glucose 115 H, Calcium 7.6 L, Phosphorus 7.2 H, Albumin 1.6 L Micro: Microbiology 10/17/23 Unknown Fluid - Synovial (joint) Gram Stain - Final 10/17/23 Unknown Fluid - Synovial (joint) Body Fluid Culture - Preliminary No growth-Final to follow 10/17/23 Unknown Fluid - Synovial (joint) Gram Stain - Final 10/17/23 Unknown Fluid - Synovial (joint) Body Fluid Culture - Preliminary No growth-Final to follow 10/14/23 11:25 Blood Culture (Wb) - Line Draw Blood Culture - Preliminary No growth in 48 hours. 10/12/23 16:30 Blood Culture (Wb) - Venous Blood Culture - Final Streptococcus group G 10/12/23 16:30 Blood Culture (Wb) - Venous Bacteria Detection (PCR) - Final Strep not Strep pneumo 10/12/23 16:30 Blood Culture (Wb) - Venous Blood Culture - Final Streptococcus group G 10/12/23 16:41 Urine Catheter - Cantrell Urine Culture - Final Streptococcus group G Radiography Diagnostic Testing: Radiology Impression Echocardiogram 10/17/23 13:40 Interpretation Summary Limited echocardiogram with limited views. The left ventricular ejection fraction is 55 %. Moderate sized clear pericardial effusion. Moderate to large size organized effusion versus pericardial tumor. Recommend CT or MRI for further evaluation. Ordering Physician: Scout Mann Referring Physician: DIANNA LAUREANO Performed By: Kita Keith and Student Chest CT 10/18/23 14:47 IMPRESSION: Bilateral pleural effusions left greater than right with bibasilar compressive atelectasis more prominent on the left side. Electronically Signed: Nino Wood MD at 15:05 EDT , Physical Exam Narrative Alert and oriented, no apparent distress S1, S2, RRR Diminished breath sounds Abdomen soft, nontender Edema bilateral lower legs Non-tunneled temporary right IJ hemodialysis catheter dressing clean, dry and intact Const alert, oriented x3, no apparent distress and average body habitus General Appearance: well developed Orientation / Consciousness: oriented to person, oriented to place and oriented to time HEENT normocephalic Neck no lymphadenopathy Resp no use of accessory muscles Cardio regular rate Cardio Narrative: tachycardia GI non-tender Auscultation: normoactive bowel sounds Palpation: soft Bladder / Kidney Exam: catheter in place Extremity no clubbing, cyanosis or edema Skin no rashes or lesions noted Neuro Sensorium / Orientation: awake and alert Psych cooperative Assessment & Plan Assessment/Plan (1) Acute kidney injury: PLAN: 1. Acute renal failure. Normal baseline creatinine. As recent as 10/05/2023, his creatinine was normal at 1.0. Extensive history of kidney stone. He had a CT scan beginning of September where there were kidney stones with mild hydronephrosis. Repeat CT scan here on admission did not show any hydronephrosis. Essentially anuric since admission. Cantrell removed. Started on dialysis 10/15/2023. HD today. will try for fluid removal Has Streptococcus group G and blood in the urine. Repeat cultures are negative from 10/13. ID consulted. Currently receiving cefazolin bilateral knee effusions s/p aspiration echo done on 10/17: EF 55%, moderate to large sized pericardial effusion versus pericardial tumo (had echo September 2023 EF 56%, no pericardial effusion). CT chest shows hiatal hernia no mass 2. Thrombocytopenia, Presumably this is sepsis related. Severe thrombocytopenia on admission. No evidence of schistocytes on peripheral smear. LDH was high but haptoglobin was normal. Platelet counts are improving 3. Reviewed old records from [facility]. He has known history of esophageal adenocarcinoma initially diagnosed in 2020. Had surgery, chemotherapy with carboplatin, adjuvant chemotherapy with nivolumab. Currently on active surveillance. Last MRI showed possible spinal lesions. He had a T-spine biopsy in September which did not show any malignancy. He follows with oncology here in [facility] in [place]. we should get prelim biopsy results later today HD today 4.5 hours fluid removal 3-4 L
--- NOTE | 2023-10-19 10:03 | WOUNDNOTE ---
Pt is currently getting dialysis and may be going to surgery later today. will assess blisters to back after patient is off of dialysis. pt states he feels better today. denies further needs at this time.
[2023-10-19] MEDS: Heparin 10,000 UNITS/10 ML Vial IV (12:05)
--- NOTE | 2023-10-19 12:51 | PN.ID_ITS ---
Physical Exam Narrative Sleeping this PM, no fever Const no apparent distress Resp normal air movement and clear to auscultation bilaterally Cardio Rate: tachycardic GI soft to palpation, non-tender and non-distended Skin no rashes or lesions noted ID ID: Route of nutrition/ use of supplements: [] Nutritional Intake: [] IV Site: [] Cantrell Catheter: [] Assessment & Plan Assessment/Plan (1) Sepsis: (2) Acute kidney injury: (3) History of aortic valve replacement: (4) Bacterial infection due to Streptococcus, group G: PLAN: sepsis and LEELA due to Group G strep bacteremia, suspect urinary source. Repeat bcx neg so far. Cont cefazolin. Concern for L knee septic arthritis, aspiration done by Dr. Baker, fluid wbc 34k, cx neg so far, gram stain neg. W ith strep bacteremia and prior TAVR, will order RICKY. Will follow
--- NOTE | 2023-10-19 16:04 | PN.ORTHO_ITS ---
Subjective Subjective Lisa Dietrich PA-C dictating on a patient reviewed with Dr. Kody keys. This 68-year-old male has been admitted to the hospital per patient report since this past Sunday as a result of urosepsis. He has been under the care of Dr. Kody Keys and has had repeat aspiration of bilateral knees for suspected underlying knee joint infections. Cultures have remained negative to this point. Patient has been seeing improvements regarding his knee pain and recurrent effusions. His left knee is worse than that of the right. Objective Data Objective Data Patient is alert and oriented x 3 no acute distress at rest breathing easily without respiratory distress inspection of bilateral knees are with moderate palpable effusions there is stiffness for knee range of motion. Negative Filipe bilaterally without signs of DVT. Patient is able to actively plantar and dorsiflex bilateral ankles against resistance neurovascularly intact Vital Signs: Vital Signs Temp Pulse Resp BP Pulse Ox O2 Del Method O2 Flow Rate 97.6 F L 89 18 112/79 98 Room Air 2 10/19/23 10:00 10/19/23 12:23 10/19/23 12:23 10/19/23 12:23 10/19/23 13:08 10/19/23 14:00 10/18/23 09:10 Oxygen Flow Rate (L/min) 2 Oxygen Delivery Method Room Air Weight: 97 kg Body Mass Index (BMI) 31.6 Intake & Output: Intake and Output for Last 24 Hours 10/17/23 10/18/23 10/19/23 23:59 23:59 23:59 Intake Total 400 / 700 860 / 860 340 / 340 Output Total 1150 / 1150 0 / 0 2200 / 2200 Balance -750 / -450 860 / 860 -1860 / -1860 Lab / Micro Data Attestation: I reviewed the patient's lab results. 10/19/23 04:52 10/19/23 04:52 Labs: Laboratory Results - last 24 hr 10/19/23 04:52: WBC 10.5, RBC 3.97 L, Hgb 10.7 L, Hct 31.6 L, MCV 79.6 L, MCH 27.0, MCHC 33.9, RDW Std Deviation 47.8 H, RDW Coeff of Marcos 16.5 H, Plt Count 176, MPV 11.7, Immature Gran % (Auto) 4.300 H, Neut % (Auto) 88.4 H, Lymph % (Auto) 3.1 L, [place] % (Auto) 3.6, Eos % (Auto) 0.5, Baso % (Auto) 0.1, Absolute Neuts (auto) 9.3 H, Absolute Lymphs (auto) 0.33 L, Nucleated RBC % 0, Sodium 132 L, Potassium 4.4, Chloride 99, Carbon Dioxide 19.0 L, BUN 107 H*, Creatinine 6.92 H, Estim Creat Clear Calc 11.71, Est GFR (MDRD) Af Amer 10 L, Est GFR (MDRD) Non-Af 8 L, BUN/Creatinine Ratio 15.5, Glucose 115 H, Calcium 7.6 L, P hosphorus 7.2 H, Albumin 1.6 L Micro: Microbiology 10/14/23 11:25 Blood Culture (Wb) - Line Draw Blood Culture - Final No growth in 5 days. 10/17/23 Unknown Fluid - Synovial (joint) Gram Stain - Final 10/17/23 Unknown Fluid - Synovial (joint) Body Fluid Culture - Preliminary No growth-Final to follow 10/17/23 Unknown Fluid - Synovial (joint) Anaerobic Culture - Preliminary No growth in 48 hours. 10/17/23 Unknown Fluid - Synovial (joint) Gram Stain - Final 10/17/23 Unknown Fluid - Synovial (joint) Body Fluid Culture - Preliminary No growth-Final to follow 10/17/23 Unknown Fluid - Synovial (joint) Anaerobic Culture - Preliminary No growth in 48 hours. 10/12/23 16:30 Blood Culture (Wb) - Venous Blood Culture - Final Streptococcus group G 10/12/23 16:30 Blood Culture (Wb) - Venous Bacteria Detection (PCR) - Final Strep not Strep pneumo 10/12/23 16:30 Blood Culture (Wb) - Venous Blood Culture - Final Streptococcus group G 10/12/23 16:41 Urine Catheter - Cantrell Urine Culture - Final Streptococcus group G Radiography Diagnostic Testing: Radiology Impression Echocardiogram 10/17/23 13:40 Interpretation Summary Limited echocardiogram with limited views. The left ventricular ejection fraction is 55 %. Moderate sized clear pericardial effusion. Moderate to large size organized effusion versus pericardial tumor. Recommend CT or MRI for further evaluation. Ordering Physician: Scout Mann Referring Physician: DIANNA LAUREANO Performed By: Kita Keith and Student Chest CT 10/18/23 14:47 IMPRESSION: Bilateral pleural effusions left greater than right with bibasilar compressive atelectasis more prominent on the left side. Electronically Signed: Nino Wood MD at 15:05 EDT , Assessment & Plan Assessment/Plan (1) Effusion, right knee: PLAN: Plan of care was further discussed and reviewed at length with the patient regarding recurrent bilateral knee joint effusions. I explained that at this point cultures have remained negative and after careful discussion with Dr. Kody keys with the improvements that he is seeing in his symptoms the plan/goal at this point is to continue with infectious disease management of his IV antibiotics and repeat serial aspirations of bilateral knee joints. The goal is to avoid surgical intervention if possible. The patient voiced understanding. I did recommend today with recurrence of bilateral knee joint effusions that we attempt repeat aspirations of bilateral knees the patient was agreeable to the plan of care. He will continue with rest ice compression elevation. He will continue to work on gentle mobility exercises at the knees. We will plan to reevaluate and follow. Procedure note: After appropriate consent was obtained verbally at bedside the right knee was prepared in standard sterile fashion with multiple sterile alcohol swabs. From the superior pole of the patella using 18-gauge needle approximately 16 cc of blood-tinged slightly cloudy synovial fluid was aspirated from the right knee joint. Sterile Band-Aid was applied to the aspiration site. Compressive Cody wrap was reapplied to the right knee. Patient tolerated procedure well. (2) Effusion, left knee: PLAN: Procedure note: After appropriate consent was obtained verbally at bedside the left knee was prepared in standard sterile fashion with multiple sterile alcohol swabs. From the superior pole of the patella using 18-gauge needle approximately 17 cc of blood-tinged slightly cloudy synovial fluid was aspirated from the left knee joint. Sterile Band-Aid was applied to the aspiration site. Compressive Cody wrap was reapplied to the left knee. Patient tolerated procedure well.
--- NOTE | 2023-10-19 17:03 | PN.HOSP_ITS ---
Reason for Visit Reason for Visit: Diagnoses Sepsis, unspecified organism (10/12/23) Other streptococcus as the cause of diseases classified elsewhere (10/12/23) Thrombocytopenia, unspecified (10/12/23) Effusion, right knee (10/12/23) Effusion, left knee (10/12/23) Acute kidney failure, unspecified (10/12/23) Unspecified jaundice (10/12/23) Presence of aortocoronary bypass graft (10/12/23) Presence of prosthetic heart valve (10/12/23) Subjective Subjective Patient was seen and examined today, he is undergoing dialysis, I talked to orthopedic surgery today, they did perform an arthrocentesis on the patient's knees yesterday but did not send the fluid down for analysis. After discussion on the phone with them, they have decided that they are going to avoid taking the patient to surgery for a washing out of his knees, there is no sign of an infectious process at this time and they prefer just to treat him symptomatically by removal of fluid if he needs it. I did talk with the patient's oncologist by phone today (Dr. To), he states the patient has an abnormal area on PET scan in the T10 area, this was biopsied and did not show evidence of cancer, x-rays were repeated however recently which seem to indicate this area may be resembling cancer, it is plan for the patient to undergo another bone biopsy in the near future. Objective Data Objective Data Vital Signs: Vital Signs Temp Pulse Resp BP Pulse Ox O2 Del Method O2 Flow Rate 98.1 F 96 34 H 88/74 L 95 Room Air 2 10/19/23 16:12 10/19/23 16:12 10/19/23 16:12 10/19/23 16:12 10/19/23 16:12 10/19/23 16:12 10/18/23 09:10 Oxygen Flow Rate (L/min) 2 Oxygen Delivery Method Room Air Weight: 97 kg Body Mass Index (BMI) 31.6 Intake & Output: Intake and Output for Last 24 Hours 10/17/23 10/18/23 10/19/23 23:59 23:59 23:59 Intake Total 400 / 700 860 / 860 340 / 340 Output Total 1150 / 1150 0 / 0 2200 / 2200 Balance -750 / -450 860 / 860 -1860 / -1860 Lab / Micro Data 10/19/23 04:52 10/19/23 04:52 Labs: Laboratory Results - last 24 hr 10/19/23 04:52: WBC 10.5, RBC 3.97 L, Hgb 10.7 L, Hct 31.6 L, MCV 79.6 L, MCH 27.0, MCHC 33.9, RDW Std Deviation 47.8 H, RDW Coeff of Marcos 16.5 H, Plt Count 176, MPV 11.7, Immature Gran % (Auto) 4.300 H, Neut % (Auto) 88.4 H, Lymph % (Auto) 3.1 L, [place] % (Auto) 3.6, Eos % (Auto) 0.5, Baso % (Auto) 0.1, Absolute Neuts (auto) 9.3 H, Absolute Lymphs (auto) 0.33 L, Nucleated RBC % 0, Sodium 132 L, Potassium 4.4, Chloride 99, Carbon Dioxide 19.0 L, BUN 107 H*, Creatinine 6.92 H, Estim Creat Clear Calc 11.71, Est GFR (MDRD) Af Amer 10 L, Est GFR (MDRD) Non-Af 8 L, BUN/Creatinine Ratio 15.5, Glucose 115 H, Calcium 7.6 L, P hosphorus 7.2 H, Albumin 1.6 L Micro: Microbiology 10/14/23 11:25 Blood Culture (Wb) - Line Draw Blood Culture - Final No growth in 5 days. 10/17/23 Unknown Fluid - Synovial (joint) Gram Stain - Final 10/17/23 Unknown Fluid - Synovial (joint) Body Fluid Culture - Preliminary No growth-Final to follow 10/17/23 Unknown Fluid - Synovial (joint) Anaerobic Culture - Preliminary No growth in 48 hours. 10/17/23 Unknown Fluid - Synovial (joint) Gram Stain - Final 10/17/23 Unknown Fluid - Synovial (joint) Body Fluid Culture - Preliminary No growth-Final to follow 10/17/23 Unknown Fluid - Synovial (joint) Anaerobic Culture - Preliminary No growth in 48 hours. 10/12/23 16:30 Blood Culture (Wb) - Venous Blood Culture - Final Streptococcus group G 10/12/23 16:30 Blood Culture (Wb) - Venous Bacteria Detection (PCR) - Final Strep not Strep pneumo 10/12/23 16:30 Blood Culture (Wb) - Venous Blood Culture - Final Streptococcus group G 10/12/23 16:41 Urine Catheter - Cantrell Urine Culture - Final Streptococcus group G Physical Exam Narrative alert and no apparent distress General Appearance: cooperative, well kempt and well developed Orientation / Consciousness: awake, oriented to person and oriented to place HEENT normocephalic, head/scalp atraumatic and moist oral mucous membranes Eyes PERRL, EOMs intact bilaterally and conjunctivae normal Neck supple, no JVD, thyroid normal and no carotid bruits General: trachea midline Resp normal respiratory effort, no retractions, no use of accessory muscles and clear to auscultation bilaterally Auscultation: Negative for rales, rhonchi or wheezes Cardio regular rate, regular rhythm, S1 normal heart sound, S2 normal heart sound, no murmurs, no rub and no gallops GI normal to inspection, nondistended, normoactive bowel sounds, soft to palpation, non-tender and non-distended Extremity no clubbing, cyanosis or edema Skin no rashes or lesions noted General Skin Exam: no breakdown Neuro CN's II-XII intact bilaterally, no focal motor deficits and no sensory deficits noted Sensorium / Orientation: awake, alert, oriented to person and oriented to place Speech: speech normal Psych affect normal Assessment & Plan Assessment/Plan (1) Bacterial infection due to Streptococcus, group G: (2) Sepsis: PLAN: Plan 1. Sepsis secondary to acute cystitis and bacteremia from Streptococcus-patient is being seen by infectious diseases, antibiotics are being adjusted per infectious diseases, I talked briefly with infectious diseases today and they stated that the patient should have a RICKY performed, they ordered this test and it probably will be performed on Sunday of next week. #2 acute kidney injury-possibly secondary to ATN, patient underwent a renal biopsy today, he is undergoing dialysis today #3 coronary artery disease-patient is stable at this time, he will remain on his present medications #4 hyperlipidemia-patient will remain on his present medications #5 bilateral pleural effusions-secondary to acute kidney injury, continue dialysis, patient's echocardiogram showed a left ventricular ejection fraction which was normal. Total clinical time spent by myself addressing the patient's medical issues, reviewing all of his data, and collaborating with the patient's care team: 35 minutes Charges/Coding Visit Charges Inpatient E&M: 14437 Subs Hosp L2
[2023-10-19] MEDS: Metoprolol Tartrate 25 MG Tablet PO (21:38)
[2023-10-19] MEDS: Atorvastatin Calcium 80 MG Tablet PO (21:39)
[2023-10-19] MEDS: Menthol/Lanolin/Calamine/Znox 113 GM Tube 1 APPLIC TOPICAL (21:40)
[2023-10-19] MEDS: Cefazolin 1 GM/50 ML BAG IV (21:41)
[2023-10-20] VITALS (11 sets, daily range): BP systolic 116–145; BP diastolic 81–99; PULSE 78–111; RESP 17–32; TEMP 36.4–36.7; O2SAT 93–97; BMI 24.9
[2023-10-20] MEDS: Metoprolol Tartrate 25 MG Tablet PO ×2 (08:53→20:43)
[2023-10-20] MEDS: Pantoprazole Sodium 40 MG Tablet PO ×2 (08:53→20:43)
[2023-10-20] MEDS: Ezetimibe 10 MG Tablet PO (08:53)
[2023-10-20] MEDS: Menthol/Lanolin/Calamine/Znox 113 GM Tube 1 APPLIC TOPICAL ×2 (08:54→20:44)
[2023-10-20] MEDS: Aspirin 81 MG TAB.CHEW PO (08:54)
[2023-10-20 11:30] LABS: Anion Gap 9 (5-15); BUN 89 mg/dL (7-18); BUN/Creat Ratio 13.9 RATIO (10-20); Calcium,Total 7.6 mg/dL (8.5-10.1); Chloride 99 mmol/L (98-107); Creatinine, Serum 6.38 mg/dL (0.70-1.30); EST Glomerular Filtration Rate 9 mL/min (>60); Est Glom Filt Rate - Afr Amer 11 mL/min (>60); Estimated Creatinine Clearance 10.93 ml/min; Glucose 138 mg/dL (74-106); Potassium 4.5 mmol/L (3.5-5.1); Sodium Level 132 mmol/L (136-145)
--- NOTE | 2023-10-20 12:41 | PN.ORTHO_ITS ---
Subjective Subjective Patient seen and examined. He states he is able to stand at bedside with therapy today. He feels that his pain is improved dramatically in both knees. He feels he is able to move his right knee much better and range of motion is also improving in his left knee albeit to a lesser degree. He denies any fevers, chills, nausea or vomiting, chest pain or shortness of breath. Objective Data Objective Data Vital Signs: Vital Signs Temp Pulse Resp BP Pulse Ox O2 Del Method O2 Flow Rate 97.7 F L 78 31 H 116/81 H 97 Room Air 2 10/20/23 10:20 10/20/23 10:20 10/20/23 10:20 10/20/23 10:20 10/20/23 10:20 10/20/23 10:20 10/18/23 09:10 Oxygen Flow Rate (L/min) 2 Oxygen Delivery Method Room Air Weight: 168 lb 10.458 oz Body Mass Index (BMI) 24.9 Intake & Output: Intake and Output for Last 24 Hours 10/18/23 10/19/23 10/20/23 23:59 23:59 23:59 Intake Total 860 / 860 490 / 610 480 / 480 Output Total 0 / 0 2200 / 2200 0 / 0 Balance 860 / 860 -1710 / -1590 480 / 480 Lab / Micro Data 10/19/23 04:52 10/20/23 10:56 Labs: Laboratory Results - last 24 hr 10/17/23 : [place] [facility] Review Reviewed 10/17/23 : [place] [facility] Review Reviewed 10/20/23 10:56: Sodium 132 L, Potassium 4.5, Chloride 99, Carbon Dioxide 24.0, Anion Gap 9, BUN 89 H, Creatinine 6.38 H, Estim Creat Clear Calc 10.93, Est GFR (MDRD) Af Amer 11 L, Est GFR (MDRD) Non-Af 9 L, BUN/Creatinine Ratio 13.9, G lucose 138 H, Calcium 7.6 L Micro: Microbiology 10/17/23 17:34 Blood Culture (Wb) - Left Hand Blood Culture - Preliminary No growth in 48 hours. 10/14/23 11:25 Blood Culture (Wb) - Line Draw Blood Culture - Final No growth in 5 days. 10/17/23 Unknown Fluid - Synovial (joint) Gram Stain - Final 10/17/23 Unknown Fluid - Synovial (joint) Body Fluid Culture - Preliminary No growth-Final to follow 10/17/23 Unknown Fluid - Synovial (joint) Anaerobic Culture - Preliminary No growth in 48 hours. 10/17/23 Unknown Fluid - Synovial (joint) Gram Stain - Final 10/17/23 Unknown Fluid - Synovial (joint) Body Fluid Culture - Preliminary No growth-Final to follow 10/17/23 Unknown Fluid - Synovial (joint) Anaerobic Culture - Preliminary No growth in 48 hours. 10/12/23 16:30 Blood Culture (Wb) - Venous Blood Culture - Final Streptococcus group G 10/12/23 16:30 Blood Culture (Wb) - Venous Bacteria Detection (PCR) - Final Strep not Strep pneumo 10/12/23 16:30 Blood Culture (Wb) - Venous Blood Culture - Final Streptococcus group G 10/12/23 16:41 Urine Catheter - Cantrell Urine Culture - Final Streptococcus group G Physical Exam Narrative General -A&Ox3, NAD, appears stated age. Vital signs stable, afebrile. Respiratory -normal work of breathing, no intercostal retractions. CV -pulses regular, brisk capillary refill ?4 limbs. Abdomen-soft, nontender, nondistended. No guarding, rigidity, rebound tenderness. Musculoskeletal/neurologic - . Left lower extremity: 3+ left knee effusion.. Warmth is noted. No overlying erythema. No short arc range of motion pain is noted. Skin is intact. DF, PF, EHL 5/5. Sensation intact light touch L3-S1 dermatomes. DP 2+, brisk cap refill in the toes. Right lower extremity: 1+ right knee effusion right knee. No warmth is noted. No overlying erythema. No short arc range of motion pain is noted. Skin is intact. DF, PF, EHL 5/5. Sensation intact light touch L3-S1 dermatomes. DP 2+, brisk cap refill in the toes. Assessment & Plan Assessment/Plan (1) Effusion, right knee: PLAN: Patient's pain and range of motion is improving both knees status post serial bilateral knee arthrocentesis. He has minimal effusion in his right knee and considerable effusion of his left knee today. No growth to date on cultures of both knee aspirates from my index consultation. Clinically he is improving with regards to his knees. I offered a therapeutic arthrocentesis of the left knee today and patient agreed to proceed. Risks, benefits, alternatives to procedure were reviewed with the patient at length and he agreed to proceed. Informed consent obtained. Left knee arthrocentesis procedure note: Informed consent obtained. Skin overlying the superolateral patella of the left knee prepped with chlorhexidine. 21-gauge needle was then inserted in the suprapatellar pouch. 30 cc of sanguinous fluid was aspirated from the left knee with considerable improvement of effusion. Pressure dressing applied. Patient tolerated procedure well without complication. Suspect bilateral inflammatory effusions likely related to septic response and/or acute kidney injury. No plan for surgical intervention at this time. Unless pain considerably worsens, I suspect we will not proceed with further knee arthrocentesis. Plan to follow peripherally at this time. Please not hesitate to call if any questions or concerns arise in the meantime. Patient may follow-up as needed from the pain and/or swelling upon discharge if no issues arise in the meantime. (2) Effusion, left knee: PLAN: See above
--- NOTE | 2023-10-20 15:02 | PN.HOSP_ITS ---
Reason for Visit Reason for Visit: Diagnoses Sepsis, unspecified organism (10/12/23) Other streptococcus as the cause of diseases classified elsewhere (10/12/23) Thrombocytopenia, unspecified (10/12/23) Effusion, right knee (10/12/23) Effusion, left knee (10/12/23) Acute kidney failure, unspecified (10/12/23) Unspecified jaundice (10/12/23) Presence of aortocoronary bypass graft (10/12/23) Presence of prosthetic heart valve (10/12/23) Subjective Subjective Patient was seen and examined today, he was creatinine was 6.38 today, he denies any shortness of breath or chest discomfort. Patient has remained afebrile. Objective Data Objective Data Vital Signs: Vital Signs Temp Pulse Resp BP Pulse Ox O2 Del Method O2 Flow Rate 97.6 F L 80 17 124/99 H 95 Room Air 2 10/20/23 12:20 10/20/23 12:20 10/20/23 12:20 10/20/23 12:20 10/20/23 12:20 10/20/23 14:26 10/18/23 09:10 Oxygen Flow Rate (L/min) 2 Oxygen Delivery Method Room Air Weight: 76.5 kg Body Mass Index (BMI) 24.9 Intake & Output: Intake and Output for Last 24 Hours 10/18/23 10/19/23 10/20/23 23:59 23:59 23:59 Intake Total 860 / 860 490 / 610 600 / 600 Output Total 0 / 0 2200 / 2200 100 / 100 Balance 860 / 860 -1710 / -1590 500 / 500 Lab / Micro Data 10/19/23 04:52 10/20/23 10:56 Labs: Laboratory Results - last 24 hr 10/17/23 : [place] [facility] Review Reviewed 10/17/23 : [place] [facility] Review Reviewed 10/20/23 10:56: Sodium 132 L, Potassium 4.5, Chloride 99, Carbon Dioxide 24.0, Anion Gap 9, BUN 89 H, Creatinine 6.38 H, Estim Creat Clear Calc 10.93, Est GFR (MDRD) Af Amer 11 L, Est GFR (MDRD) Non-Af 9 L, BUN/Creatinine Ratio 13.9, G lucose 138 H, Calcium 7.6 L Micro: Microbiology 10/17/23 17:34 Blood Culture (Wb) - Left Hand Blood Culture - Preliminary No growth in 48 hours. 10/14/23 11:25 Blood Culture (Wb) - Line Draw Blood Culture - Final No growth in 5 days. 10/17/23 Unknown Fluid - Synovial (joint) Gram Stain - Final 10/17/23 Unknown Fluid - Synovial (joint) Body Fluid Culture - Preliminary No growth-Final to follow 10/17/23 Unknown Fluid - Synovial (joint) Anaerobic Culture - Preliminary No growth in 48 hours. 10/17/23 Unknown Fluid - Synovial (joint) Gram Stain - Final 10/17/23 Unknown Fluid - Synovial (joint) Body Fluid Culture - Preliminary No growth-Final to follow 10/17/23 Unknown Fluid - Synovial (joint) Anaerobic Culture - Preliminary No growth in 48 hours. 10/12/23 16:30 Blood Culture (Wb) - Venous Blood Culture - Final Streptococcus group G 10/12/23 16:30 Blood Culture (Wb) - Venous Bacteria Detection (PCR) - Final Strep not Strep pneumo 10/12/23 16:30 Blood Culture (Wb) - Venous Blood Culture - Final Streptococcus group G 10/12/23 16:41 Urine Catheter - Cantrell Urine Culture - Final Streptococcus group G Physical Exam Narrative alert and no apparent distress General Appearance: cooperative, well kempt and well developed Orientation / Consciousness: awake, oriented to person and oriented to place HEENT normocephalic, head/scalp atraumatic and moist oral mucous membranes Eyes PERRL, EOMs intact bilaterally and conjunctivae normal Neck supple, no JVD, thyroid normal and no carotid bruits General: trachea midline Resp normal respiratory effort, no retractions, no use of accessory muscles and clear to auscultation bilaterally Auscultation: Negative for rales, rhonchi or wheezes Cardio regular rate, regular rhythm, S1 normal heart sound, S2 normal heart sound, no murmurs, no rub and no gallops GI normal to inspection, nondistended, normoactive bowel sounds, soft to palpation, non-tender and non-distended Extremity no clubbing, cyanosis or edema Skin no rashes or lesions noted General Skin Exam: no breakdown Neuro CN's II-XII intact bilaterally, no focal motor deficits and no sensory deficits noted Sensorium / Orientation: awake, alert, oriented to person and oriented to place Speech: speech normal Psych affect normal Assessment & Plan Assessment/Plan (1) Bacterial infection due to Streptococcus, group G: (2) Sepsis: PLAN: Plan 1. Sepsis secondary to acute cystitis and bacteremia from Streptococcus-patient is being seen by infectious diseases, antibiotics are being adjusted per infectious diseases, patient will undergo a RICKY on Sunday #2 acute kidney injury-possibly secondary to ATN, patient underwent a renal biopsy , his next dialysis session should be Sunday #3 coronary artery disease-patient is stable at this time, he will remain on his present medications #4 hyperlipidemia-patient will remain on his present medications #5 bilateral pleural effusions-secondary to acute kidney injury, continue dialysis, patient's echocardiogram showed a left ventricular ejection fraction which was normal. Total clinical time spent by myself addressing the patient's medical issues, reviewing all of his data, and collaborating with the patient's care team: 35 minutes Charges/Coding Visit Charges Inpatient E&M: 00732 Subs Hosp L2
--- NOTE | 2023-10-20 17:05 | PN.RENAL_ITS ---
Subjective Subjective Following for acute kidney injury. The patient denies chest pain, shortness of breath, or nausea. Appetite is better. Objective Data Objective Data Vital Signs: Vital Signs Temp Pulse Resp BP Pulse Ox O2 Del Method O2 Flow Rate 97.6 F L 80 17 124/99 H 95 Room Air 2 10/20/23 12:20 10/20/23 12:20 10/20/23 12:20 10/20/23 12:20 10/20/23 12:20 10/20/23 14:26 10/18/23 09:10 Oxygen Flow Rate (L/min) 2 Oxygen Delivery Method Room Air Weight: 76.5 kg Body Mass Index (BMI) 24.9 Intake & Output: Intake and Output for Last 24 Hours 10/18/23 10/19/23 10/20/23 23:59 23:59 23:59 Intake Total 860 / 860 490 / 610 600 / 600 Output Total 0 / 0 2200 / 2200 100 / 100 Balance 860 / 860 -1710 / -1590 500 / 500 Lab / Micro Data 10/19/23 04:52 10/20/23 10:56 Labs: Laboratory Results - last 24 hr 10/17/23 : [place] [facility] Review Reviewed 10/17/23 : [place] [facility] Review Reviewed 10/20/23 10:56: Sodium 132 L, Potassium 4.5, Chloride 99, Carbon Dioxide 24.0, Anion Gap 9, BUN 89 H, Creatinine 6.38 H, Estim Creat Clear Calc 10.93, Est GFR (MDRD) Af Amer 11 L, Est GFR (MDRD) Non-Af 9 L, BUN/Creatinine Ratio 13.9, G lucose 138 H, Calcium 7.6 L Micro: Microbiology 10/17/23 17:34 Blood Culture (Wb) - Left Hand Blood Culture - Preliminary No growth in 48 hours. 10/14/23 11:25 Blood Culture (Wb) - Line Draw Blood Culture - Final No growth in 5 days. 10/17/23 Unknown Fluid - Synovial (joint) Gram Stain - Final 10/17/23 Unknown Fluid - Synovial (joint) Body Fluid Culture - Preliminary No growth-Final to follow 10/17/23 Unknown Fluid - Synovial (joint) Anaerobic Culture - Preliminary No growth in 48 hours. 10/17/23 Unknown Fluid - Synovial (joint) Gram Stain - Final 10/17/23 Unknown Fluid - Synovial (joint) Body Fluid Culture - Preliminary No growth-Final to follow 10/17/23 Unknown Fluid - Synovial (joint) Anaerobic Culture - Preliminary No growth in 48 hours. 10/12/23 16:30 Blood Culture (Wb) - Venous Blood Culture - Final Streptococcus group G 10/12/23 16:30 Blood Culture (Wb) - Venous Bacteria Detection (PCR) - Final Strep not Strep pneumo 10/12/23 16:30 Blood Culture (Wb) - Venous Blood Culture - Final Streptococcus group G 10/12/23 16:41 Urine Catheter - Cantrell Urine Culture - Final Streptococcus group G Physical Exam Narrative Alert and oriented, no apparent distress S1, S2, RRR Diminished breath sounds Abdomen soft, nontender Edema bilateral lower legs Non-tunneled temporary right IJ hemodialysis catheter dressing clean, dry and intact Const alert, oriented x3, no apparent distress and average body habitus General Appearance: well developed Orientation / Consciousness: oriented to person, oriented to place and oriented to time HEENT normocephalic Neck no lymphadenopathy Resp no use of accessory muscles Cardio regular rate Cardio Narrative: tachycardia GI non-tender Auscultation: normoactive bowel sounds Palpation: soft Bladder / Kidney Exam: catheter in place Extremity no clubbing, cyanosis or edema Skin no rashes or lesions noted Neuro Sensorium / Orientation: awake and alert Psych cooperative Assessment & Plan Assessment/Plan (1) Acute kidney injury: PLAN: Impression/Plan: The patient is a 68-year-old male with past history of hypertension, CAD status post CABG, aortic stenosis, esophageal cancer, GERD, and hyperlipidemia. Patient presented to hospital on 10/12/2023 with right flank pain, altered mental status and gross hematuria. Patient was found to have UTI with bloodstream infection with Streptococcus group G. Nephrology is following for dialysis dependent acute kidney injury. Acute kidney injury. Normal baseline creatinine. As recent as 10/05/2023, his creatinine was normal at 1.00 mg/dL. Extensive history of kidney stone. He had a CT scan beginning of September where there were kidney stones with mild hydronephrosis. Repeat CT scan here on admission did not show any hydronephrosis. Essentially anuric since admission. Cantrell removed. Started on dialysis 10/15/2023. HD today. will try for fluid removal Has Streptococcus group G in blood and in the urine. Repeat cultures are negative from 10/13. ID consulted. Currently receiving cefazolin bilateral knee effusions s/p aspiration echo done on 10/17: EF 55%, moderate to large sized pericardial effusion versus pericardial tumo (had echo September 2023 EF 56%, no pericardial effusion). CT chest shows hiatal hernia no mass. Patient is status post kidney biopsy with pending result. He has been on MWF dialysis schedule. The patient was dialyzed yesterday on 10/19/2023 and tolerated well. We are continue to monitor for recovery of kidney function. So far, there is no evidence of renal recovery. He remains oliguric. I will plan on dialyzing patient again on 10/22/2023.
[2023-10-20] MEDS: Senna/Docusate Sodium 1 Tablet 2 TABLET PO (20:43)
[2023-10-20] MEDS: Atorvastatin Calcium 80 MG Tablet PO (20:43)
[2023-10-20] MEDS: Acetaminophen 325 MG Tablet 650 MG PO (20:43)
[2023-10-20] MEDS: Cefazolin 1 GM/50 ML BAG IV (20:43)
[2023-10-21] VITALS (9 sets, daily range): BP systolic 107–153; BP diastolic 75–110; PULSE 80–112; RESP 19–29; TEMP 36.3–37; O2SAT 94–100; BMI 25.0
[2023-10-21] MEDS: Ezetimibe 10 MG Tablet PO (08:58)
[2023-10-21] MEDS: Aspirin 81 MG TAB.CHEW PO (08:58)
[2023-10-21] MEDS: Metoprolol Tartrate 25 MG Tablet PO ×2 (08:58→21:53)
[2023-10-21] MEDS: Pantoprazole Sodium 40 MG Tablet PO ×2 (08:58→21:53)
[2023-10-21] MEDS: Menthol/Lanolin/Calamine/Znox 113 GM Tube 1 APPLIC TOPICAL ×2 (11:19→21:53)
--- NOTE | 2023-10-21 15:43 | PN.HOSP_ITS ---
Reason for Visit Reason for Visit: Diagnoses Sepsis, unspecified organism (10/12/23) Other streptococcus as the cause of diseases classified elsewhere (10/12/23) Thrombocytopenia, unspecified (10/12/23) Effusion, right knee (10/12/23) Effusion, left knee (10/12/23) Acute kidney failure, unspecified (10/12/23) Unspecified jaundice (10/12/23) Presence of aortocoronary bypass graft (10/12/23) Presence of prosthetic heart valve (10/12/23) Subjective Subjective Patient was seen and examined today, he does not appear to be in any distress. Patient will have a RICKY performed tomorrow, he will also most likely be dialyzed tomorrow. Objective Data Objective Data Vital Signs: Vital Signs Temp Pulse Resp BP Pulse Ox O2 Del Method O2 Flow Rate 97.7 F L 105 H 29 H 107/83 H 95 Room Air 2 10/21/23 14:02 10/21/23 14:02 10/21/23 14:02 10/21/23 14:02 10/21/23 14:02 10/21/23 14:02 10/18/23 09:10 Oxygen Flow Rate (L/min) 2 Oxygen Delivery Method Room Air Weight: 76.7 kg Body Mass Index (BMI) 25.0 Intake & Output: Intake and Output for Last 24 Hours 10/19/23 10/20/23 10/21/23 23:59 23:59 23:59 Intake Total 490 / 610 770 / 770 250 / 250 Output Total 2200 / 2200 100 / 100 0 / 0 Balance -1710 / -1590 670 / 670 250 / 250 Lab / Micro Data 10/19/23 04:52 10/20/23 10:56 Micro: Microbiology 10/17/23 17:34 Blood Culture (Wb) - Left Hand Blood Culture - Preliminary No growth in 48 hours. 10/14/23 11:25 Blood Culture (Wb) - Line Draw Blood Culture - Final No growth in 5 days. 10/17/23 Unknown Fluid - Synovial (joint) Gram Stain - Final 10/17/23 Unknown Fluid - Synovial (joint) Body Fluid Culture - Preliminary No growth-Final to follow 10/17/23 Unknown Fluid - Synovial (joint) Anaerobic Culture - Preliminary No growth in 48 hours. 10/17/23 Unknown Fluid - Synovial (joint) Gram Stain - Final 10/17/23 Unknown Fluid - Synovial (joint) Body Fluid Culture - Preliminary No growth-Final to follow 10/17/23 Unknown Fluid - Synovial (joint) Anaerobic Culture - Preliminary No growth in 48 hours. 10/12/23 16:30 Blood Culture (Wb) - Venous Blood Culture - Final Streptococcus group G 10/12/23 16:30 Blood Culture (Wb) - Venous Bacteria Detection (PCR) - Final Strep not Strep pneumo 10/12/23 16:30 Blood Culture (Wb) - Venous Blood Culture - Final Streptococcus group G 10/12/23 16:41 Urine Catheter - Cantrell Urine Culture - Final Streptococcus group G Physical Exam Narrative alert and no apparent distress General Appearance: cooperative, well kempt and well developed Orientation / Consciousness: awake, oriented to person and oriented to place HEENT normocephalic, head/scalp atraumatic and moist oral mucous membranes Eyes PERRL, EOMs intact bilaterally and conjunctivae normal Neck supple, no JVD, thyroid normal and no carotid bruits General: trachea midline Resp normal respiratory effort, no retractions, no use of accessory muscles and clear to auscultation bilaterally Auscultation: Negative for rales, rhonchi or wheezes Cardio regular rate, regular rhythm, S1 normal heart sound, S2 normal heart sound, no murmurs, no rub and no gallops GI normal to inspection, nondistended, normoactive bowel sounds, soft to palpation, non-tender and non-distended Extremity no clubbing, cyanosis or edema Skin no rashes or lesions noted General Skin Exam: no breakdown Neuro CN's II-XII intact bilaterally, no focal motor deficits and no sensory deficits noted Sensorium / Orientation: awake, alert, oriented to person and oriented to place Speech: speech normal Psych affect normal Assessment & Plan Assessment/Plan (1) Bacterial infection due to Streptococcus, group G: (2) Sepsis: PLAN: Plan 1. Sepsis secondary to acute cystitis and bacteremia from Streptococcus-patient is being seen by infectious diseases, antibiotics are being adjusted per infectious diseases, patient will undergo a RICKY on Sunday #2 acute kidney injury-possibly secondary to ATN, patient underwent a renal biopsy , his next dialysis session should be Sunday #3 coronary artery disease-patient is stable at this time, he will remain on his present medications #4 hyperlipidemia-patient will remain on his present medications #5 bilateral pleural effusions-secondary to acute kidney injury, continue dialysis, patient's echocardiogram showed a left ventricular ejection fraction which was normal. Total clinical time spent by myself addressing the patient's medical issues, reviewing all of his data, and collaborating with the patient's care team: 25 minutes Charges/Coding Visit Charges Inpatient E&M: [id number] [facility] Hosp L1
--- NOTE | 2023-10-21 16:12 | PCM.PN.REN ---
Subjective Subjective Following for LEELA. The patient reports some increase in urine output today. However, urine was not kept or quantified. He denies chest pain, shortness of breath, or nausea. He has been anorexic. Patient has been trying to drink Nepro. However, he complains of bad aftertaste when drinking Nepro. Objective Data Objective Data Vital Signs: Vital Signs Temp Pulse Resp BP Pulse Ox O2 Del Method O2 Flow Rate 97.7 F L 105 H 29 H 107/83 H 95 Room Air 2 10/21/23 14:02 10/21/23 14:02 10/21/23 14:02 10/21/23 14:02 10/21/23 14:02 10/21/23 14:02 10/18/23 09:10 Oxygen Flow Rate (L/min) 2 Oxygen Delivery Method Room Air Weight: 76.7 kg Body Mass Index (BMI) 25.0 Intake & Output: Intake and Output for Last 24 Hours 10/19/23 10/20/23 10/21/23 23:59 23:59 23:59 Intake Total 490 / 610 770 / 770 250 / 250 Output Total 2200 / 2200 100 / 100 0 / 0 Balance -1710 / -1590 670 / 670 250 / 250 Lab / Micro Data 10/19/23 04:52 10/20/23 10:56 Micro: Microbiology 10/17/23 17:34 Blood Culture (Wb) - Left Hand Blood Culture - Preliminary No growth in 48 hours. 10/14/23 11:25 Blood Culture (Wb) - Line Draw Blood Culture - Final No growth in 5 days. 10/17/23 Unknown Fluid - Synovial (joint) Gram Stain - Final 10/17/23 Unknown Fluid - Synovial (joint) Body Fluid Culture - Preliminary No growth-Final to follow 10/17/23 Unknown Fluid - Synovial (joint) Anaerobic Culture - Preliminary No growth in 48 hours. 10/17/23 Unknown Fluid - Synovial (joint) Gram Stain - Final 10/17/23 Unknown Fluid - Synovial (joint) Body Fluid Culture - Preliminary No growth-Final to follow 10/17/23 Unknown Fluid - Synovial (joint) Anaerobic Culture - Preliminary No growth in 48 hours. 10/12/23 16:30 Blood Culture (Wb) - Venous Blood Culture - Final Streptococcus group G 10/12/23 16:30 Blood Culture (Wb) - Venous Bacteria Detection (PCR) - Final Strep not Strep pneumo 10/12/23 16:30 Blood Culture (Wb) - Venous Blood Culture - Final Streptococcus group G 10/12/23 16:41 Urine Catheter - Cantrell Urine Culture - Final Streptococcus group G Physical Exam Narrative Alert and oriented, no apparent distress S1, S2, RRR Diminished breath sounds Abdomen soft, nontender Edema bilateral lower legs Non-tunneled temporary right IJ hemodialysis catheter dressing clean, dry and intact Const alert, oriented x3, no apparent distress and average body habitus General Appearance: well developed Orientation / Consciousness: oriented to person, oriented to place and oriented to time HEENT normocephalic Neck no lymphadenopathy Resp no use of accessory muscles Cardio regular rate Cardio Narrative: tachycardia GI non-tender Auscultation: normoactive bowel sounds Palpation: soft Bladder / Kidney Exam: catheter in place Extremity no clubbing, cyanosis or edema Skin no rashes or lesions noted Neuro Sensorium / Orientation: awake and alert Psych cooperative Assessment & Plan Assessment/Plan (1) Acute kidney injury: PLAN: Impression/Plan: The patient is a 68-year-old male with past history of hypertension, CAD status post CABG, aortic stenosis, esophageal cancer, GERD, and hyperlipidemia. Patient presented to hospital on 10/12/2023 with right flank pain, altered mental status and gross hematuria. Patient was found to have UTI with bloodstream infection with Streptococcus group G. Nephrology is following for dialysis dependent acute kidney injury. Acute kidney injury. Normal baseline creatinine. As recent as 10/05/2023, his creatinine was normal at 1.00 mg/dL. Extensive history of kidney stone. He had a CT scan beginning of September where there were kidney stones with mild hydronephrosis. Repeat CT scan here on admission did not show any hydronephrosis. Essentially anuric since admission. Cantrell removed. Started on dialysis 10/15/2023. HD today. will try for fluid removal Has Streptococcus group G in blood and in the urine. Repeat cultures are negative from 10/13. ID consulted. Currently receiving cefazolin bilateral knee effusions s/p aspiration echo done on 10/17: EF 55%, moderate to large sized pericardial effusion versus pericardial tumo (had echo September 2023 EF 56%, no pericardial effusion). CT chest shows hiatal hernia no mass. Patient is status post kidney biopsy with pending result. He has been on MWF dialysis schedule. The patient was last dialyzed on 10/19/2023 and tolerated well. No need for dialysis today. We are continue to monitor for recovery of kidney function. So far, there is no evidence of renal recovery. However, the patient thinks that urine output may has picked up today. Will check renal function panel. I will plan on dialyzing patient again tomorrow on 10/22/2023 if there is no clear evidence of recovery. Discussed probable need for TDC with Dr. Almanzar today as well. Will discuss need for outpatient hemodialysis placement with CM as well tomorrow if there is no renal recovery.
[2023-10-21] MEDS: Cefazolin 1 GM/50 ML BAG IV (21:52)
[2023-10-21] MEDS: Atorvastatin Calcium 80 MG Tablet PO (21:53)
[2023-10-22] VITALS (13 sets, daily range): BP systolic 107–177; BP diastolic 65–92; PULSE 78–95; RESP 18–29; TEMP 35.9–36.8; O2SAT 92–100; BMI 33.5; BMI 33.6; BMI 33.3
[2023-10-22 06:47] LABS: Albumin, Serum 1.6 g/dL (3.2-5.0); BUN 114 mg/dL (7-18); BUN/Creat Ratio 13.7 RATIO (10-20); Calcium,Total 7.6 mg/dL (8.5-10.1); Chloride 95 mmol/L (98-107); EST Glomerular Filtration Rate 7 mL/min (>60); Est Glom Filt Rate - Afr Amer 8 mL/min (>60); Glucose 109 mg/dL (74-106); Phosphorus 8.8 mg/dL (2.5-4.9); Potassium 4.9 mmol/L (3.5-5.1); Sodium Level 128 mmol/L (136-145)
--- NOTE | 2023-10-22 06:50 | NURSING ---
Notified pt primary RN, Rios Rodgers of critical BUN and Creatinine.
--- NOTE | 2023-10-22 07:29 | EX.PCM.CON.S ---
Assessment & Plan Assessment/Plan (1) Bacterial infection due to Streptococcus, group G: PLAN: Patient was admitted with sepsis. He has been started on dialysis and has a temporary catheter in the right IJ. I discussed placing a right IJ tunneled dialysis catheter in the operating room. I discussed the procedure in detail as well as the risks of bleeding, infection, pneumothorax, line infection or DVT. Patient understands all the risks and is willing to proceed. Patient is getting an echo today to check for vegetation on his heart valve. If the patient has vegetations he may need transfer to tertiary for treatment of this. As long as the echo is normal I will plan for placement of tunneled dialysis catheter in the right IJ tomorrow afternoon. His temporary catheter can be removed today after dialysis. Jarrell Kowalski MD Pager: [facility] [address] [place] [address], [address] [place] [address] Office: HPI Consult Data Date of Consult: 10/22/23 HPI Narrative HPI Narrative: NICKO ROSALES, is a 68 M who presented last week with sepsis and acute kidney injury. He was started on dialysis. I was consulted for tunneling of the dialysis catheter. [facility] Medical History Adenocarcinoma of esophagus LEELA (acute kidney injury) Non-smoker Esophageal carcinoma Atherosclerosis of coronary artery of [place] heart without angina pectoris 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 Essential (primary) hypertension Non-rheumatic aortic stenosis Syncope and collapse Hyperlipidemia Atherosclerotic heart disease of [place] coronary artery with other forms of angina pectoris Encounter for long-term current use of high risk medication abnormal stress test Angina pectoris Exertional chest pain URI (upper respiratory infection) Home Medications ?Medication ?Instructions ?Recorded ?Last Taken ?Type aspirin 81 mg chewable tablet 81 mg PO DAILY@0800 HEALTH 01/23/14 10/10/23 History pantoprazole 40 mg tablet,delayed 40 mg PO BID GERD 03/24/21 10/10/23 History release (Protonix) amlodipine 10 mg tablet 10 mg PO DAILY BP #90 tabs 05/15/22 10/10/23 Rx atorvastatin 80 mg tablet 80 mg PO QHS CHOLESTEROL #90 tabs 05/15/22 10/10/23 Rx ezetimibe 10 mg tablet 10 mg PO DAILY CHOLESTEROL #90 tabs 05/15/22 10/10/23 Rx metoprolol tartrate 25 mg tablet 25 mg PO BID HEART #180 tabs 05/15/22 10/10/23 Rx nitroglycerin 0.4 mg sublingual 0.4 mg sublingual Q5M PRN Chest 05/15/22 Unknown Rx tablet Pain #25 tabs furosemide 20 mg tablet 20 mg PO DAILY heart #14 tabs 09/11/23 10/10/23 Rx hydrocodone-acetaminophen 5-325mg 1 tab PO Q4H PRN PRN Pain 4 days 09/11/23 10/10/23 Rx 5mg-325mg #20 TABLETS nystatin 100,000 unit/gram topical 1 applic topical BID right chest 09/11/23 10/10/23 History cream ondansetron HCl 8 mg tablet 8 mg PO Q8H PRN PRN nausea/vomiting 09/11/23 10/10/23 History potassium chloride 20 mEq 20 meq PO BID supplement #20 tabs 09/11/23 10/10/23 Rx tablet,extended release hydrocodone-acetaminophen 5-325mg 1 tab PO Q4H PRN PRN Pain 3 days 10/11/23 10/10/23 Rx 5mg-325mg #10 TABLETS ondansetron 4 mg disintegrating 4 mg PO Q8H PRN PRN Nausea #10 tabs 10/11/23 10/10/23 Rx tablet Allergy/AdvReac Type Severity Reaction Status Date / Time No Known Allergies Allergy Verified 10/12/23 16:11 Family History Father Heart disease Myocardial infarction Hypertension Brother Hypertension Sister Heart disease Myocardial infarction Surgical History History of aortic valve replacement (03/03/19) History of coronary artery stent placement (12/31/18) H/O coronary artery bypass surgery (09/18/02) History of tonsillectomy History of hernia repair Social History Smoking Status: Never smoker alcohol intake: never substance use type: does not use caffeine: No what type of physical activity do you participate in: walking frequency: daily ROS Constitutional Constitutional: Denies anorexia, chills or fatigue Eyes Eyes: Denies blurry vision ENT HEENT: Denies abnormal hearing Respiratory/Chest Respiratory/Chest: Denies cough Gastrointestinal Gastrointestinal: Denies abdominal pain, nausea or vomiting Physical Exam Const alert and oriented x3 Eyes PERRL Resp normal respiratory effort Cardio Rate: regular rate Rhythm: regular rhythm Lab / Micro Data 10/19/23 04:52 10/22/23 05:44 Labs: Laboratory Results - last 24 hr 10/22/23 05:44: Sodium 128 L, Potassium 4.9, Chloride 95 L, Carbon Dioxide 19.0 L, BUN 114 H*, Creatinine 8.30 H*, Estim Creat Clear Calc 8.40, Est GFR (MDRD) Af Amer 8 L, Est GFR (MDRD) Non-Af 7 L, BUN/Creatinine Ratio 13.7, Glucose 109 H, Calcium 7.6 L, Phosphorus 8.8 H, Albumin 1.6 L
[2023-10-22] MEDS: 0.9% Normal Saline 1,000 ML IV.SOLN. 1000 ML OPERA.SITE (07:54)
[2023-10-22] MEDS: 0.9% Saline Lock 10 ML Syringe IV ×2 (07:56→10:29)
[2023-10-22] MEDS: PureFlow B 2K Dialysis Soln 1 BAG 6 BAG PF ×2 (09:43→10:02)
[2023-10-22] MEDS: Senna/Docusate Sodium 1 Tablet 2 TABLET PO ×2 (11:53→20:29)
[2023-10-22] MEDS: Pantoprazole Sodium 40 MG Tablet PO ×2 (11:53→20:29)
[2023-10-22] MEDS: Aspirin 81 MG TAB.CHEW PO (11:53)
[2023-10-22] MEDS: Ezetimibe 10 MG Tablet PO (11:53)
[2023-10-22] MEDS: Menthol/Lanolin/Calamine/Znox 113 GM Tube 1 APPLIC TOPICAL ×2 (11:53→20:30)
[2023-10-22] MEDS: Metoprolol Tartrate 25 MG Tablet PO ×2 (11:58→20:30)
--- NOTE | 2023-10-22 12:03 | PN.RENAL_ITS ---
Subjective Subjective Sitting up in bed. No overnight events. Denies any complaints. States he feels better today. Objective Data Objective Data Vital Signs: Vital Signs Temp Pulse Resp BP Pulse Ox O2 Del Method O2 Flow Rate 96.7 F L 87 21 H 111/79 95 Room Air 2 10/22/23 04:12 10/22/23 11:58 10/22/23 10:26 10/22/23 10:26 10/22/23 10:26 10/22/23 10:26 10/18/23 09:10 Oxygen Flow Rate (L/min) 2 Oxygen Delivery Method Room Air Weight: 102.512 kg Body Mass Index (BMI) 33.3 Intake & Output: Intake and Output for Last 24 Hours 10/20/23 10/21/23 10/22/23 23:59 23:59 23:59 Intake Total 770 / 770 420 / 420 Output Total 100 / 100 50 / 50 1130 / 1130 Balance 670 / 670 370 / 370 -1130 / -1130 Lab / Micro Data 10/19/23 04:52 10/22/23 05:44 Labs: Laboratory Results - last 24 hr 10/22/23 05:44: Sodium 128 L, Potassium 4.9, Chloride 95 L, Carbon Dioxide 19.0 L, BUN 114 H*, Creatinine 8.30 H*, Estim Creat Clear Calc 8.40, Est GFR (MDRD) Af Amer 8 L, Est GFR (MDRD) Non-Af 7 L, BUN/Creatinine Ratio 13.7, Glucose 109 H , Calcium 7.6 L, Phosphorus 8.8 H, Albumin 1.6 L Micro: Microbiology 10/17/23 Unknown Fluid - Synovial (joint) Gram Stain - Final 10/17/23 Unknown Fluid - Synovial (joint) Body Fluid Culture - Final No growth in 5 days. 10/17/23 Unknown Fluid - Synovial (joint) Anaerobic Culture - Preliminary No growth in 48 hours. 10/17/23 Unknown Fluid - Synovial (joint) Gram Stain - Final 10/17/23 Unknown Fluid - Synovial (joint) Body Fluid Culture - Final No growth in 5 days. 10/17/23 Unknown Fluid - Synovial (joint) Anaerobic Culture - Preliminary No growth in 48 hours. 10/17/23 17:34 Blood Culture (Wb) - Left Hand Blood Culture - Preliminary No growth in 48 hours. 10/14/23 11:25 Blood Culture (Wb) - Line Draw Blood Culture - Final No growth in 5 days. 10/12/23 16:30 Blood Culture (Wb) - Venous Blood Culture - Final Streptococcus group G 10/12/23 16:30 Blood Culture (Wb) - Venous Bacteria Detection (PCR) - Final Strep not Strep pneumo 10/12/23 16:30 Blood Culture (Wb) - Venous Blood Culture - Final Streptococcus group G 10/12/23 16:41 Urine Catheter - Cantrell Urine Culture - Final Streptococcus group G Physical Exam Narrative Alert and oriented, no apparent distress S1, S2, RRR Diminished breath sounds Abdomen soft, nontender Edema bilateral lower legs Non-tunneled temporary right IJ hemodialysis catheter dressing clean, dry and intact Assessment & Plan Assessment/Plan (1) Acute kidney injury: PLAN: Impression/Plan: The patient is a 68-year-old male with past history of hypertension, CAD status post CABG, aortic stenosis, esophageal cancer, GERD, and hyperlipidemia. Patient presented to hospital on 10/12/2023 with right flank pain, altered mental status and gross hematuria. Patient was found to have UTI with bloodstream infection with Streptococcus group G. Nephrology is following for dialysis dependent acute kidney injury. Acute kidney injury. Normal baseline creatinine. As recent as 10/05/2023, his creatinine was normal at 1.00 mg/dL. Extensive history of kidney stone. He had a CT scan beginning of September where there were kidney stones with mild hydronephrosis. Repeat CT scan here on admission did not show any hydronephrosis. Essentially anuric since admission. Cantrell removed. Started on dialysis 10/15/2023. HD today. will try for fluid removal Has Streptococcus group G in blood and in the urine bilateral knee effusions s/p aspiration echo done on 10/17: EF 55%, moderate to large sized pericardial effusion versus pericardial tumor (had echo September 2023 EF 56%, no pericardial effusion). CT chest shows hiatal hernia no mass. Patient is status post kidney biopsy with pending result. We continue to monitor for recovery of kidney function. Today creatinine 8.30, BUN 114 so far no noted recovery. Patient will need outpatient HD arrangements. Patient underwent hemodialysis today but temporary line sluggish therefore only able to have 2 hours of dialysis with around 1 L fluid removal. Surgery team consulted for tunneled HD catheter placement. -Group G strep bacteremia, suspect urinary source. On cefazolin. ID following for antibiotics. Blood cultures negative from 10/13 and 10/16. Synovial fluid no growth. Possible placement of tunneled HD catheter tomorrow.
--- NOTE | 2023-10-22 14:10 | WOUNDNOTE ---
wound photo: back
--- NOTE | 2023-10-22 14:53 | CASEMGMT ---
RN CM in to discuss SNF preferences with patient. Patient states that they have not reviewed list and asked this CM to call . RN CM called Kenisha, she states she saw the list but had not reviewed facilities. states she will be coming in later. RN CM asked if could review list this evening and provide top 3 preferences so that referral can be sent in the morning. voiced understanding and states she will review list. CM updated SW. CM will continue to follow this patient and plan for a safe discharge.
--- NOTE | 2023-10-22 15:05 | PCM.PN.ID ---
Physical Exam Narrative Feeling better, no fever, no abd pain, no diarrhea Const alert and no apparent distress General Appearance: cooperative Resp normal air movement and clear to auscultation bilaterally Cardio regular rate and regular rhythm GI soft to palpation, non-tender and non-distended Skin no rashes or lesions noted ID ID: Route of nutrition/ use of supplements: [] Nutritional Intake: [] IV Site: [] Cantrell Catheter: [] Assessment & Plan Assessment/Plan (1) Sepsis: (2) Acute kidney injury: (3) History of aortic valve replacement: (4) Bacterial infection due to Streptococcus, group G: PLAN: sepsis and LEELA due to Group G strep bacteremia, suspect urinary source. Repeat bcx neg so far. Cont cefazolin. Concern for L knee septic arthritis, aspiration done by Dr. Baker, fluid wbc 34k, cx neg so far, gram stain neg. With strep bacteremia and prior TAVR, ordered RICKY but not good candidate due to prior esophageal cancer and partial resection. Plan for discharge will be 4-6 weeks iv cefazolin dosed with HD. Ok for permacath placement. Bcx cleared 10/14/23. Will follow
--- NOTE | 2023-10-22 15:22 | NUR.TO.PHY ---
Received verbal order from Dr. Almanzar to remove temp dialysis catheter. Nephrology stated that ok to remove line once Dr. Almanzar spoke to ID. pt scheduled for tdc on 10/22. Line removed w/o complication. This RN observed that catheter was intact upon removal. Access site dressed with sterile gauze & opsite after hemostasis achieved.
[2023-10-22] MEDS: PUREFLOW B SOLUTION 2K 5,000 ML BAG 1 BAG PF (16:22)
--- NOTE | 2023-10-22 17:42 | PN.HOSP_ITS ---
Reason for Visit Reason for Visit: Diagnoses Sepsis, unspecified organism (10/12/23) Other streptococcus as the cause of diseases classified elsewhere (10/12/23) Thrombocytopenia, unspecified (10/12/23) Effusion, right knee (10/12/23) Effusion, left knee (10/12/23) Acute kidney failure, unspecified (10/12/23) Unspecified jaundice (10/12/23) Presence of aortocoronary bypass graft (10/12/23) Presence of prosthetic heart valve (10/12/23) Subjective Subjective Patient was seen and examined today, he underwent dialysis today, I talked with cardiology today, they elected not to have the patient undergo a RICKY due to the fact she has had extensive esophageal surgery for cancer in the past with removal of most of his esophagus and part of his stomach. Infectious diseases agreed with this. The plan is for the patient to have a tunneled dialysis catheter placed tomorrow, infectious diseases feels that the patient is stable to undergo this procedure. Objective Data Objective Data Vital Signs: Vital Signs Temp Pulse Resp BP Pulse Ox O2 Del Method O2 Flow Rate 98.2 F 80 24 H 107/73 100 Room Air 2 10/22/23 17:09 10/22/23 17:09 10/22/23 17:09 10/22/23 17:09 10/22/23 17:09 10/22/23 17:09 10/18/23 09:10 Oxygen Flow Rate (L/min) 2 Oxygen Delivery Method Room Air Weight: 102.512 kg Body Mass Index (BMI) 33.3 Intake & Output: Intake and Output for Last 24 Hours 10/20/23 10/21/23 10/22/23 23:59 23:59 23:59 Intake Total 770 / 770 420 / 420 Output Total 100 / 100 50 / 50 1130 / 1130 Balance 670 / 670 370 / 370 -1130 / -1130 Lab / Micro Data 10/19/23 04:52 10/22/23 05:44 Labs: Laboratory Results - last 24 hr 10/22/23 05:44: Sodium 128 L, Potassium 4.9, Chloride 95 L, Carbon Dioxide 19.0 L, BUN 114 H*, Creatinine 8.30 H*, Estim Creat Clear Calc 8.40, Est GFR (MDRD) Af Amer 8 L, Est GFR (MDRD) Non-Af 7 L, BUN/Creatinine Ratio 13.7, Glucose 109 H , Calcium 7.6 L, Phosphorus 8.8 H, Albumin 1.6 L Micro: Microbiology 10/17/23 Unknown Fluid - Synovial (joint) Gram Stain - Final 10/17/23 Unknown Fluid - Synovial (joint) Body Fluid Culture - Final No growth in 5 days. 10/17/23 Unknown Fluid - Synovial (joint) Anaerobic Culture - Preliminary No growth in 48 hours. 10/17/23 Unknown Fluid - Synovial (joint) Gram Stain - Final 10/17/23 Unknown Fluid - Synovial (joint) Body Fluid Culture - Final No growth in 5 days. 10/17/23 Unknown Fluid - Synovial (joint) Anaerobic Culture - Preliminary No growth in 48 hours. 10/17/23 17:34 Blood Culture (Wb) - Left Hand Blood Culture - Preliminary No growth in 48 hours. 10/14/23 11:25 Blood Culture (Wb) - Line Draw Blood Culture - Final No growth in 5 days. 10/12/23 16:30 Blood Culture (Wb) - Venous Blood Culture - Final Streptococcus group G 10/12/23 16:30 Blood Culture (Wb) - Venous Bacteria Detection (PCR) - Final Strep not Strep pneumo 10/12/23 16:30 Blood Culture (Wb) - Venous Blood Culture - Final Streptococcus group G 10/12/23 16:41 Urine Catheter - Cantrell Urine Culture - Final Streptococcus group G Physical Exam Narrative alert and no apparent distress General Appearance: cooperative, well kempt and well developed Orientation / Consciousness: awake, oriented to person and oriented to place HEENT normocephalic, head/scalp atraumatic and moist oral mucous membranes Eyes PERRL, EOMs intact bilaterally and conjunctivae normal Neck supple, no JVD, thyroid normal and no carotid bruits General: trachea midline Resp normal respiratory effort, no retractions, no use of accessory muscles and clear to auscultation bilaterally Auscultation: Negative for rales, rhonchi or wheezes Cardio regular rate, regular rhythm, S1 normal heart sound, S2 normal heart sound, no murmurs, no rub and no gallops GI normal to inspection, nondistended, normoactive bowel sounds, soft to palpation, non-tender and non-distended Extremity no clubbing, cyanosis or edema Skin no rashes or lesions noted General Skin Exam: no breakdown Neuro CN's II-XII intact bilaterally, no focal motor deficits and no sensory deficits noted Sensorium / Orientation: awake, alert, oriented to person and oriented to place Speech: speech normal Psych affect normal Assessment & Plan Assessment/Plan (1) Bacterial infection due to Streptococcus, group G: (2) Sepsis: PLAN: Plan 1. Sepsis secondary to acute cystitis and bacteremia from Streptococcus-patient is being seen by infectious diseases, antibiotics are being adjusted per infectious diseases, he remains on Ancef at this time #2 acute kidney injury-possibly secondary to ATN, patient underwent a renal biopsy, he will have a tunneled dialysis catheter placed tomorrow #3 coronary artery disease-patient is stable at this time, he will remain on his present medications #4 hyperlipidemia-patient will remain on his present medications #5 bilateral pleural effusions-secondary to acute kidney injury, continue dialysis, patient's echocardiogram showed a left ventricular ejection fraction which was normal. Total clinical time spent by myself addressing the patient's medical issues, reviewing all of his data, and collaborating with the patient's care team: 25 minutes Charges/Coding Visit Charges Inpatient E&M: 38172 Subs Hosp L1
[2023-10-22] MEDS: Atorvastatin Calcium 80 MG Tablet PO (20:30)
[2023-10-22] MEDS: Cefazolin 1 GM/50 ML BAG IV (21:20)
[2023-10-23] VITALS (12 sets, daily range): BP systolic 105–129; BP diastolic 73–95; PULSE 90–111; RESP 16–20; TEMP 36.1–36.7; O2SAT 92–96; BMI 33.3; BMI 32.0
--- NOTE | 2023-10-23 05:55 | EKG12_ITS ---
Test Reason : AM EKG Blood Pressure : / mmHG Vent. Rate : 109 BPM Atrial Rate : 109 BPM P-R Int : 200 ms QRS Dur : 090 ms QT Int : 382 ms P-R-T Axes : -07 010 003 degrees QTc Int : 514 ms Sinus tachycardia Low voltage QRS T wave abnormality, consider lateral ischemia Abnormal ECG When compared with ECG of 15-OCT-2023 00:14, ID interval has increased T wave inversion now evident in Lateral leads Confirmed by JENNY MANNING, DANNA ([id number]), brands editor CYNTHIA JOHN ([id number]) on 10/24/2023 10:08:20 AM Referred By: Confirmed By:GÓMEZ ALVARADO MD
[2023-10-23 06:08] LABS: Absolute Neutrophil Count 8.9 X10^3/uL (2.0-7.7); Basophil# 0.02 X10^3/uL; Basophil% 0.2 % (0-1); Eosinophil# 0.04 X10^3/uL; Eosinophils% 0.4 % (0-5); Hematocrit 29.9 % (40-54); Lymphocyte % 3.9 % (19-41); Mean Corp Hgb Conc 33.4 g/dL (32-36); Mean Corpuscular Hgb 27.3 pg (27.0-32.0); Mean Corpuscular Volume 81.7 fL (80-94); Mean Platelet Vol. 11.8 fl (6.2-12.0); Monocyte% 6.9 % (0-10); NRBC Flagged by Analyzer 0 % (0-5); Neutrophil # 8.89 X10^3/uL (2.7-7.7); Neutrophil % 87.4 % (47-70); POSITIVE DIFFERENTIAL YES; Platelet Count 195 K/mm3 (150-450); RBC Distribution Width SD 48.1 fl (35.1-43.9); Red Blood Count 3.66 M/mm3 (4.6-6.2); White Blood Count 10.2 K/mm3 (4.4-11.0)
[2023-10-23 06:45] LABS: Anion Gap 14 (5-15); BUN 108 mg/dL (7-18); BUN/Creat Ratio 13.4 RATIO (10-20); Calcium,Total 7.6 mg/dL (8.5-10.1); Chloride 97 mmol/L (98-107); Creatinine, Serum 8.06 mg/dL (0.70-1.30); EST Glomerular Filtration Rate 7 mL/min (>60); Est Glom Filt Rate - Afr Amer 9 mL/min (>60); Glucose 91 mg/dL (74-106); Sodium Level 129 mmol/L (136-145)
--- NOTE | 2023-10-23 08:58 | CASEMGMT ---
RN CM into pt room. Pt sitting up in bed in no distress. Pt states first choice is [facility] in [place]. Notified SW. Updated by hospitalist to start OP HD set up. CM made referral to [facility] via pt portal. CM will continue to follow this patient and plan for a safe DC.
--- NOTE | 2023-10-23 09:25 | CASEMGMT ---
SW asked Tata hernandez/raymond capacity planning analyst to please send a referral [facility] [place]. Fidelina Benavides BUSINESS DIRECTOR HUNTER
--- NOTE | 2023-10-23 09:50 | CASEMGMT ---
Addendum entered by Tata Nieto 10/23/23 10:20: [facility] accepted referral. SW updated. Tata Nieto DC Planning Asst. Original Note: Discharge Planning Referral sent to [facility] [place] via [facility]. Tata Nieto DC Planning Asst.
--- NOTE | 2023-10-23 10:54 | PCM.PN.ID ---
Physical Exam Narrative Feeling ok, no fever, no abd pain, no n/v/d. Const alert and no apparent distress General Appearance: cooperative Resp normal air movement and clear to auscultation bilaterally Cardio regular rate and regular rhythm GI soft to palpation, non-tender and non-distended Skin no rashes or lesions noted ID ID: Route of nutrition/ use of supplements: [] Nutritional Intake: [] IV Site: [] Cantrell Catheter: [] Assessment & Plan Assessment/Plan (1) Sepsis: (2) Acute kidney injury: (3) History of aortic valve replacement: (4) Bacterial infection due to Streptococcus, group G: PLAN: sepsis and LEELA due to Group G strep bacteremia, suspect urinary source. Repeat bcx neg so far. Cont cefazolin. Concern for L knee septic arthritis, aspiration done by Dr. Baker, fluid wbc 34k, cx neg so far, gram stain neg. With strep bacteremia and prior TAVR, ordered RICKY but not good candidate due to prior esophageal cancer and partial resection. Plan for discharge will be 6 weeks iv cefazolin dosed with HD. Ok for permacath placement. Bcx cleared 10/14/23. Stop date for abx is 11/25/23. ID followup in 2 weeks. Will follow
--- NOTE | 2023-10-23 11:15 | PCM.PN.REN ---
Subjective Subjective Sitting in recliner chair. No overnight events. Denies any complaints this morning. Objective Data Objective Data Vital Signs: Vital Signs Temp Pulse Resp BP Pulse Ox O2 Del Method O2 Flow Rate 98.1 F 111 H 20 H 127/95 H 94 Room Air 2 10/23/23 09:15 10/23/23 09:15 10/23/23 09:15 10/23/23 09:15 10/23/23 09:15 10/23/23 09:10/18/23 09:10 Oxygen Flow Rate (L/min) 2 Oxygen Delivery Method Room Air Weight: 98.3 kg Body Mass Index (BMI) 32.0 Intake & Output: Intake and Output for Last 24 Hours 10/21/23 10/22/23 10/23/23 23:59 23:59 23:59 Intake Total 420 / 420 1250 / 1250 Output Total 50 / 50 1180 / 1180 60 / 60 Balance 370 / 370 70 / 70 -60 / -60 Lab / Micro Data 10/23/23 05:08 10/23/23 05:08 Labs: Laboratory Results - last 24 hr 10/23/23 05:08: WBC 10.2, RBC 3.66 L, Hgb 10.0 L, Hct 29.9 L, MCV 81.7, MCH 27.3, MCHC 33.4, RDW Std Deviation 48.1 H, RDW Coeff of Marcos 16.0 H, Plt Count 195, MPV 11.8, Immature Gran % (Auto) 1.200 H, Neut % (Auto) 87.4 H, Lymph % (Auto) 3.9 L, Pitkin % (Auto) 6.9, Eos % (Auto) 0.4, Baso % (Auto) 0.2, Absolute Neuts (auto) 8.9 H, Absolute Lymphs (auto) 0.40 L, Nucleated RBC % 0, Sodium 129 L, Potassium 5.0, Chloride 97 L, Carbon Dioxide 18.0 L, Anion Gap 14, BUN 108 H*, Creatinine 8.06 H*, Estim Creat Clear Calc 10.00, Est GFR (MDRD) Af Amer 9 L, Est GFR (MDRD) Non-Af 7 L, BUN/Creatinine Ratio 13.4, Glucose 91, Calcium 7.6 L Micro: Microbiology 10/17/23 17:34 Blood Culture (Wb) - Left Hand Blood Culture - Final No growth in 5 days. 10/17/23 Unknown Fluid - Synovial (joint) Gram Stain - Final 10/17/23 Unknown Fluid - Synovial (joint) Body Fluid Culture - Final No growth in 5 days. 10/17/23 Unknown Fluid - Synovial (joint) Anaerobic Culture - Preliminary No growth in 48 hours. 10/17/23 Unknown Fluid - Synovial (joint) Gram Stain - Final 10/17/23 Unknown Fluid - Synovial (joint) Body Fluid Culture - Final No growth in 5 days. 10/17/23 Unknown Fluid - Synovial (joint) Anaerobic Culture - Preliminary No growth in 48 hours. 10/14/23 11:25 Blood Culture (Wb) - Line Draw Blood Culture - Final No growth in 5 days. 10/12/23 16:30 Blood Culture (Wb) - Venous Blood Culture - Final Streptococcus group G 10/12/23 16:30 Blood Culture (Wb) - Venous Bacteria Detection (PCR) - Final Strep not Strep pneumo 10/12/23 16:30 Blood Culture (Wb) - Venous Blood Culture - Final Streptococcus group G 10/12/23 16:41 Urine Catheter - Cantrell Urine Culture - Final Streptococcus group G Radiography Diagnostic Testing: Radiology Impression Chest CT 10/18/23 14:47 IMPRESSION: Bilateral pleural effusions left greater than right with bibasilar compressive atelectasis more prominent on the left side. Electronically Signed: Nino Wood MD at 15:05 EDT Reading Location ID and State: [address] [place] [address] , Service support , ADDENDUM: 10/23/23 1015 IMPRESSION: undefined Physical Exam Narrative Alert and oriented, no apparent distress S1, S2, RRR Lung sounds clear Abdomen soft, nontender Edema bilateral lower legs and arms Assessment & Plan Assessment/Plan (1) Acute kidney injury: PLAN: Impression/Plan: The patient is a 68-year-old male with past history of hypertension, CAD status post CABG, aortic stenosis, esophageal cancer, GERD, and hyperlipidemia. Patient presented to hospital on 10/12/2023 with right flank pain, altered mental status and gross hematuria. Patient was found to have UTI with bloodstream infection with Streptococcus group G. Nephrology is following for dialysis dependent acute kidney injury. Acute kidney injury. Normal baseline creatinine. As recent as 10/05/2023, his creatinine was normal at 1.00 mg/dL. Extensive history of kidney stone. He had a CT scan beginning of September where there were kidney stones with mild hydronephrosis. Repeat CT scan here on admission did not show any hydronephrosis. Essentially anuric since admission. Cantrell removed. Started on dialysis 10/15/2023. Has Streptococcus group G in blood and in the urine bilateral knee effusions s/p aspiration echo done on 10/17: EF 55%, moderate to large sized pericardial effusion versus pericardial tumor (had echo September 2023 EF 56%, no pericardial effusion). CT chest showed hiatal hernia no mass. -Kidney biopsy preliminary showing ATN. Discussed this with patient. Will continue to monitor for recovery. Pre-HD Cr yesterday 8.3, BUN 114, minimal urine output. No renal recovery noted at this time therefore patient having tunneled hemodialysis catheter placed today. Depending upon timing of tunneled catheter placement patient will either dialyze today and/or tomorrow. Outpatient hemodialysis arrangements underway, possible [facility] the [facility] with dialysis arranged at [facility], diagnosis LEELA. -Group G strep bacteremia, suspect urinary source. On cefazolin. ID following for antibiotics. Blood cultures negative from 10/13 and 10/16. Synovial fluid no growth. Antibiotic recommendations cefazolin 6 weeks post HD, stop date November 24.
[2023-10-23] MEDS: 0.9% Normal Saline (500mL Bag) 500 ML 15 ML IV (12:11)
--- NOTE | 2023-10-23 12:41 | PRE.ANES_ITS ---
ASA Classification* ASA Classification ASA Classification: 3 Assessment & Plan Anesthesia* Anesthesia Assessment Anesthesia Assessment: Discussed sedation and/or anesthesia options, risks, benefits, and alternatives with patient/parents/legal guardian/POA. Questions invited. The patient/parents/legal guardian/POA seems to understand and agrees to proceed with anesthesia plan. Reviewed the physical assessment, medical history, allergy history and patient home medications list prior to surgery/procedure/anesthetic and documented any changes. Performed airway and anesthesia risk assessments. Anesthesia Type Anesthesia Type: MAC Anesthesia Focused Assessment* Temperature: 98.1 F Pulse Rate: 111 Blood Pressure: 127/95 Respiratory Rate: 20 Pulse Ox: 94 Airway Assessment Mouth opens: >3 cm Mallampati Score: II Focused Labs Anesthesia Preop lab: CBC WBC 10.2 K/mm3 (4.4-11.0) 10/23/23 05:08 RBC 3.66 M/mm3 (4.6-6.2) L 10/23/23 05:08 Hgb 10.0 g/dL (13.0-16.5) L 10/23/23 05:08 Hct 29.9 % (40-54) L 10/23/23 05:08 Plt Count 195 K/mm3 (150-450) 10/23/23 05:08 CHEMISTRY Potassium 5.0 mmol/L (3.5-5.1) 10/23/23 05:08 Sodium 129 mmol/L (136-145) L 10/23/23 05:08 Magnesium 2.5 mg/dL (1.6-2.6) 10/16/23 09:24 Phosphorus 8.8 mg/dL (2.5-4.9) H 10/22/23 05:44 BUN 108 mg/dL (7-18) H* 10/23/23 05:08 Creatinine 8.06 mg/dL (0.70-1.30) H* 10/23/23 05:08 Glucose 91 mg/dL (74-106) 10/23/23 05:08 COAG PT 15.4 SECONDS (11.7-14.9) H 10/13/23 18:40 Pre-Assessment Diagnosis/Proposed Procedure Planned Operative Procedure(s): Dialysis Catheter placement Anesthesia History Anesthesia History - director specialty: Anesthesia History - director specialty Hx Hospitalization Yes 07/13/14 11:41 Any Problems With Anesthesia No 10/22/23 22:08 Cholinesterase deficiency No 10/22/23 22:08 You/Your Family Experience No 10/22/23 22:08 fever (hyperthermia) with Relationship Recent Exposure to Contagious No 10/22/23 22:08 Disease Does patient have nerve No 10/22/23 22:08 stimulator Patient instructed to have No 10/22/23 22:08 device shut off --Does patient have Pacemaker No 10/23/23 12:33 or ICD? When Was Last Pacemaker Check QUESTION #4 FULL TEXT: You/Your Family Experience fever (hyperthermia) with Anesthesia Last Oral Intake Last Oral intake: Last Oral Intake NPO since 00:01 10/23/23 12:33 Meds taken in AM with sips of water? Meds patient instructed to take am of surgery PONV PONV - director specialty: PONV - director specialty Female HX of Motion Sickness HX of N/V After Surgery Non-Smoker Duration of Surgery greater than 60 minutes Number of Risk Factors PONV Score Height & Weight Height & Weight: Anesthesia: Height & Weight Height 5 ft 9 in 10/23/23 12:33 Weight: 98.3 kg 10/23/23 12:33 Body Mass Index (BMI) 32.0 10/23/23 12:33 Respiratory Assessment Respiratory Assessment - director specialty: Respiratory Tract Infection Hx - director specialty Hx Respiratory Tract Infection No 10/22/23 22:08 STOP Sleep Apnea STOP Sleep Apnea - director specialty: STOP Sleep Apnea - director specialty Hx Hypertension Yes 10/13/23 09:45 Hx Sleep Apnea Yes 10/12/23 19:39 CPAP No 10/12/23 19:39 BIPAP No 10/12/23 19:39 Do you snore loudly (louder than talking or can be heard Do you often feel tired/ fatigued/ sleepy during daytime? Has anyone observed you stop breathing during sleep? STOP Results Positive 10/12/23 19:39 QUESTION #5 FULL TEXT : Do you snore loudly (louder than talking or can be heard through closed doors)? 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 Specify any problems Hx of Preganancy in last 3 N/A 10/12/23 19:39 Months Nurse Filling Out Transfusion AREAD 10/12/23 19:39 & Questions: Date: 10/12/23 10/12/23 19:39 Time: 19:58 10/12/23 19:39 Patient unable to answer at this time (ie. confused, unrespo /Reproduction History /Reproductive History - director specialty: /Reproductive Hx- director specialty Hx Now No 10/19/23 01:11 Gestational Age (in weeks): EDC: Hx Hx Para Hx Section SAB No 10/19/23 01:11 Active Medications Active Medications: Current Medications Generic Name Dose Route Start Last Admin Trade Name Freq PRN Reason Stop Dose Admin Acetaminophen 650 mg 10/12/23 19:39 10/20/23 20:43 Acetaminophen 325 Mg Tablet PO 650 mg Q6H PRN PRN Administration Pain 1-10 Or Fever >100.7 Albuterol Sulfate 2.5 mg 10/12/23 19:39 Albuterol 2.5 Mg/3 Ml Vial.Neb. INHALATION Q2H PRN PRN SOB &/OR WHEEZING Aspirin 81 mg 10/13/23 08:00 10/23/23 09:55 Aspirin 81 Mg Tab.Chew PO Not Given DAILY JIGNA Atorvastatin Calcium 80 mg 10/12/23 22:00 10/22/23 20:30 Atorvastatin Calcium 80 Mg Tablet PO 80 mg QHS JIGNA Administration Calamine/Phenol 1 applic 10/15/23 10:00 10/22/23 20:30 Menthol/Lanolin/Calamine/Znox 113 Gm Tube TOPICAL 1 applic BID JIGNA Administration Protocol Ezetimibe 10 mg 10/13/23 10:00 10/22/23 11:53 Ezetimibe 10 Mg Tablet PO 10 mg DAILY JIGNA Administration Sodium Chloride 250 mls @ 15 mls/hr 10/12/23 20:31 10/18/23 09:29 IV Infused .[id number] PRN Infusion Additional IVPB Infusion Sodium Chloride 250 mls @ 15 mls/hr 10/12/23 20:31 IV .[id number] PRN Saline Flush Cefazolin Sodium 1 gm in 50 mls @ 100 mls/hr 10/17/23 22:00 10/22/23 22:03 IV Infused DAILY@2200 JIGNA Infusion Sodium Chloride 500 mls @ 0 mls/hr 10/23/23 12:15 10/23/23 12:11 IV 15 mls/hr .Q0M JIGNA Administration KVO Melatonin 3 mg 10/12/23 19:39 Melatonin 3 Mg Tablet PO QHS PRN PRN Insomnia Metoprolol Tartrate 25 mg 10/14/23 22:00 10/22/23 20:30 Metoprolol Tartrate 25 Mg Tablet PO 25 mg BID JIGNA Administration Protocol Ondansetron HCl 4 mg 10/12/23 19:39 10/18/23 08:49 Ondansetron 4 Mg/2 Ml Vial IV 4 mg Q8H PRN PRN Administration NAUSEA/VOMITING Oxycodone HCl 2.5 - 5 mg 10/12/23 19:39 10/16/23 22:04 Oxycodone 5 Mg Tablet PO 5 mg Q4H PRN PRN Administration Pain Score 4-10 Pantoprazole Sodium 40 mg 10/12/23 22:00 10/22/23 20:29 Pantoprazole Sodium 40 Mg Tablet PO 40 mg BID JIGNA Administration Polyethylene Glycol 17 gm 10/13/23 11:00 10/23/23 09:55 Polyethylene Glycol 3350 17 Gm Packet PO Not Given BID JIGNA Senna/Docusate Sodium 2 tablet 10/12/23 22:00 10/22/23 20:29 Senna/Docusate Sodium 1 Tablet PO 2 tablet BID JIGNA Administration Sodium Chloride 10 - 40 ml 10/12/23 20:31 10/22/23 10:29 0.9% Saline Lock 10 Ml Syringe IV 20 ml UD PRN Administration SALINE FLUSH PFSH Medical History Adenocarcinoma of esophagus LEELA (acute kidney injury) Non-smoker Esophageal carcinoma Atherosclerosis of coronary artery of [place] heart without angina pectoris 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 Essential (primary) hypertension Non-rheumatic aortic stenosis Syncope and collapse Hyperlipidemia Atherosclerotic heart disease of [place] coronary artery with other forms of angina pectoris Encounter for long-term current use of high risk medication abnormal stress test Angina pectoris Exertional chest pain URI (upper respiratory infection) Home Medications ?Medication ?Instructions ?Recorded ?Last Taken ?Type aspirin 81 mg chewable tablet 81 mg PO DAILY@0800 HEALTH 01/23/14 10/10/23 History pantoprazole 40 mg tablet,delayed 40 mg PO BID GERD 03/24/21 10/10/23 History release (Protonix) amlodipine 10 mg tablet 10 mg PO DAILY BP #90 tabs 05/15/22 10/10/23 Rx atorvastatin 80 mg tablet 80 mg PO QHS CHOLESTEROL #90 tabs 05/15/22 10/10/23 Rx ezetimibe 10 mg tablet 10 mg PO DAILY CHOLESTEROL #90 tabs 05/15/22 10/10/23 Rx metoprolol tartrate 25 mg tablet 25 mg PO BID HEART #180 tabs 05/15/22 10/10/23 Rx nitroglycerin 0.4 mg sublingual 0.4 mg sublingual Q5M PRN Chest 05/15/22 Unknown Rx tablet Pain #25 tabs furosemide 20 mg tablet 20 mg PO DAILY heart #14 tabs 09/11/23 10/10/23 Rx hydrocodone-acetaminophen 5-325mg 1 tab PO Q4H PRN PRN Pain 4 days 09/11/23 10/10/23 Rx 5mg-325mg #20 TABLETS nystatin 100,000 unit/gram topical 1 applic topical BID right chest 09/11/23 10/10/23 History cream ondansetron HCl 8 mg tablet 8 mg PO Q8H PRN PRN nausea/vomiting 09/11/23 10/10/23 History potassium chloride 20 mEq 20 meq PO BID supplement #20 tabs 09/11/23 10/10/23 Rx tablet,extended release hydrocodone-acetaminophen 5-325mg 1 tab PO Q4H PRN PRN Pain 3 days 10/11/23 10/10/23 Rx 5mg-325mg #10 TABLETS ondansetron 4 mg disintegrating 4 mg PO Q8H PRN PRN Nausea #10 tabs 10/11/23 10/10/23 Rx tablet cefazolin 2 gram intravenous 2 g IV .see below 33 days 10/23/23 Unknown Rx solution Allergy/AdvReac Type Severity Reaction Status Date / Time No Known Allergies Allergy Verified 10/12/23 16:11 Family History Father Heart disease Myocardial infarction Hypertension Brother Hypertension Sister Heart disease Myocardial infarction Surgical History History of aortic valve replacement (03/03/19) History of coronary artery stent placement (12/31/18) H/O coronary artery bypass surgery (09/18/02) History of tonsillectomy History of hernia repair Social History Smoking Status: Never smoker alcohol intake: never substance use type: does not use caffeine: No what type of physical activity do you participate in: walking frequency: daily Review of Systems (Anesthesia) ROS Narrative System reviewed and no additional complaints, except as documented.
[2023-10-23] MEDS: Lidocaine 1% /Epi 1:100 (20ml) 20 ML Vial (13:16)
[2023-10-23] MEDS: Heparin 10,000 UNITS/10 ML Vial 10000 UNITS (13:25)
--- NOTE | 2023-10-23 13:34 | OP.PCM_ITS ---
Report of Operation Date of Procedure: 10/23/23 Pre-Operative Diagnosis: Acute kidney injury Post-Operative Diagnosis: Acute kidney injury and right IJ thrombus Surgery/Procedure Performed:: Ultrasound and fluoroscopy guided left chest tunneled temporary dialysis catheter utilizing left IJ Type of Anesthesia: Local MAC Estimated Blood Loss (mL): 20 Description of Procedure: Patient was brought back to the operating room and MAC anesthesia was induced. The right neck and chest was prepped and draped in usual sterile fashion. The right IJ was inspected and it appeared to be thrombus in the right IJ around where the old catheter was. I was unable to access the right IJ due to all of this thrombus and so the left neck was prepped and draped and the left side was chosen. The skin overlying the IJ was injected with local anesthetic as well as a small spot on the chest. Next a scalpel was used to make an incision over both areas. Access needle was used under ultrasound guidance to access the left IJ. Guidewire was placed without resistance under fluoroscopy guided into the vena cava. Next the needle was removed and serial dilators were placed over the wire and then removed and then the peel-away sheath was placed over the wire and the wire was removed and the catheter was capped. The dialysis catheter was then run from the lower chest incision to the upper neck incision over the clavicle and then it was placed through the peel-away sheath under fluoroscopy guidance and the peel-away sheath was removed. The catheter appeared to be in good orientation. The cuff was under the skin. Next the neck incision was closed with 3-0 Vicryl suture. Both catheters were aspirated and flushed and both aspirated and flushed easily. Both were then flushed with 2 cc of hepari nized saline and clamped and capped. Next the catheter was sutured to the skin using 3-0 nylon suture. Dressings were then applied. Patient was taken to PACU in stable condition and chest x-ray will be obtained. I discussed with the patient's primary team his right IJ clot and they are getting an official ultrasound of the right IJ. Grafts/Implants Used: 23 cm curved palindrome temporary dialysis catheter Admit VTE Documentation VTE Mechan Device Prophylaxis: SCD's
--- NOTE | 2023-10-23 13:35 | RAD_ITS ---
STUDY: X-RAY CHEST REASON FOR EXAM: Male, 68 years old. Line placement -- in pacu TECHNIQUE: Single AP portable view of the chest. COMPARISON: Comparison is made with prior study dated October 15, 2023. FINDINGS: A left-sided double-lumen catheter seen with the tip at the junction of the superior vena cava and right atrium. Increasing bilateral pleural effusions greater on the left side with the bibasilar dependent atelectasis. There is mild degree of vascular congestion. Sternal cerclage wires are present from a prior sternotomy. Prior mitral valve replacement. Normal mediastinum and héctor. Normal visualized pulmonary arteries. There is atherosclerotic calcification of the aortic arch with tortuosity. There are diffuse degenerative changes of the visualized thoracic spine. Normal visualized ribs, clavicles, and shoulders. There is no demonstrated abnormality of the visualized soft tissue structures of the upper abdomen. RAD/CXR for Line Placement IMPRESSION: The tip of the left elbow Limited catheter is at the junction of the superior vena cava and right atrium. Slight increase in the bilateral pleural effusions greater on the left side with bibasilar dependent atelectasis. Vascular congestion and mild CHF. Electronically Signed: Nino Wood MD at 14:07 EDT ,
--- NOTE | 2023-10-23 13:39 | PCM.POST.ANE ---
Anesthesia: Postop Eval I Current Vital Signs Temperature: 97 F Pulse Rate: 109 Blood Pressure: 129/83 Respiratory Rate: 20 Pulse Ox: 92 Oxygen Delivery Method: Room Air Assessment Airway patent: Yes Spontaneous unlabored respirations: Yes Mental status: Awake nausea: No Vomiting: No Anesthesia Complication: No Fluid Hydration Crystalloid volume administer (ml): 150 Total IV fluid infused: 150 Progress Note Anesthesia document: Postop Eval 1 completed: Yes
[2023-10-23 14:53] LABS: International Normalized Ratio 1.7; Prothrombin Time (Protime)PT. 19.7 SECONDS (11.7-14.9)
[2023-10-23 14:55] LABS: Partial Thromboplast Time 39.7 Seconds (24.1-36.2)
--- NOTE | 2023-10-23 17:00 | POSTOPAN2_ITS ---
Anesthesia Postop Eval I Sum Postop Eval Completion status Anesthesia document: Postop Eval 1 completed: Yes Anesthesia Postop Eval I Summary Anesthesia Postop Eval I Summary: Anesthesia Postop Eval I: Assessment Summary Airway patent Yes 10/23/23 13:40 CUTTER GRINDER [email or web address] Spontaneous unlabored Yes 10/23/23 13:40 CUTTER GRINDER OPERATOR.[email or web address] respirations Mental status Awake 10/23/23 13:40 CUTTER GRINDER [email or web address].[email or web address] nausea No 10/23/23 13:40 CUTTER GRINDER OPERATOR.[email or web address] Vomiting No 10/23/23 13:40 CUTTER GRINDER OPERATOR.[email or web address] Anesthesia Postop Eval I: Fluid Summary Crystalloid volume administer 150 10/23/23 13:40 CUTTER GRINDER [email or web address].[email or web address] (ml) Colloids volume administered ( ml) Blood Product volume administered (ml) Total IV fluid infused 150 10/23/23 13:40 CUTTER GRINDER OPERATOR.[email or web address] Anesthesia Postop Eval I: Summary Notes Anesthesia Complication No 10/23/23 13:40 CUTTER GRINDER OPERATOR.[email or web address] Anesthesia Complication Comment: Post-operative progress note Anesthesia: Postop Eval II Evaluation Mental status: Awake and Calm Pain Level: 0 nausea: No Vomiting: No Complications Anesthesia Complication: No
--- NOTE | 2023-10-23 17:00 | PCM.POSTANE2 ---
Anesthesia Postop Eval I Sum Postop Eval Completion status Anesthesia document: Postop Eval 1 completed: Yes Anesthesia Postop Eval I Summary Anesthesia Postop Eval I Summary: Anesthesia Postop Eval I: Assessment Summary Airway patent Yes 10/23/23 13:40 [email or web address] Spontaneous unlabored Yes 10/23/23 13:40 [email or web address] [email or web address] respirations Mental status Awake 10/23/23 13:40 [email or web address] [email or web address] nausea No 10/23/23 13:40 FISHING [email or web address] Vomiting No 10/23/23 13:40 [email or web address] [email or web address] Anesthesia Postop Eval I: Fluid Summary Crystalloid volume administer 150 10/23/23 13:40 [email or web address] (ml) Colloids volume administered ( ml) Blood Product volume administered (ml) Total IV fluid infused 150 10/23/23 13:40 FISHING [email or web address] Anesthesia Postop Eval I: Summary Notes Anesthesia Complication No 10/23/23 13:40 [email or web address] [email or web address] Anesthesia Complication Comment: Post-operative progress note Anesthesia: Postop Eval II Evaluation Mental status: Awake and Calm Pain Level: 0 nausea: No Vomiting: No Complications Anesthesia Complication: No
--- NOTE | 2023-10-23 17:42 | PCM.PN.HOSP ---
Reason for Visit Reason for Visit: Diagnoses Sepsis, unspecified organism (10/12/23) Other streptococcus as the cause of diseases classified elsewhere (10/12/23) Thrombocytopenia, unspecified (10/12/23) Effusion, right knee (10/12/23) Effusion, left knee (10/12/23) Acute kidney failure, unspecified (10/12/23) Unspecified jaundice (10/12/23) Presence of aortocoronary bypass graft (10/12/23) Presence of prosthetic heart valve (10/12/23) Subjective Subjective Patient was seen and examined today, he underwent insertion of a tunneled dialysis catheter, I talked with general surgery briefly and they stated the patient did have a thrombus in the right IJ. He will be started on IV heparin tonight. Patient will need treatment for 3 months with anticoagulation. Objective Data Objective Data Vital Signs: Vital Signs Temp Pulse Resp BP Pulse Ox O2 Del Method O2 Flow Rate 98.0 F 106 H 16 115/86 H 95 Room Air 2 10/23/23 16:00 10/23/23 16:00 10/23/23 16:00 10/23/23 16:00 10/23/23 16:00 10/23/23 16:00 10/23/23 12:42 Oxygen Flow Rate (L/min) 2 Oxygen Delivery Method Room Air Weight: 98.3 kg Body Mass Index (BMI) 32.0 Intake & Output: Intake and Output for Last 24 Hours 10/21/23 10/22/23 10/23/23 23:59 23:59 23:59 Intake Total 420 / 420 1250 / 1250 33.25 / 33.25 Output Total 50 / 50 1180 / 1180 60 / 60 Balance 370 / 370 70 / 70 -26.75 / -26.75 Lab / Micro Data 10/23/23 05:08 10/23/23 05:08 Labs: Laboratory Results - last 24 hr 10/23/23 05:08: WBC 10.2, RBC 3.66 L, Hgb 10.0 L, Hct 29.9 L, MCV 81.7, MCH 27.3, MCHC 33.4, RDW Std Deviation 48.1 H, RDW Coeff of Marcos 16.0 H, Plt Count 195, MPV 11.8, Immature Gran % (Auto) 1.200 H, Neut % (Auto) 87.4 H, Lymph % (Auto) 3.9 L, Isabella % (Auto) 6.9, Eos % (Auto) 0.4, Baso % (Auto) 0.2, Absolute Neuts (auto) 8.9 H, Absolute Lymphs (auto) 0.40 L, Nucleated RBC % 0, Sodium 129 L, Potassium 5.0, Chloride 97 L, Carbon Dioxide 18.0 L, Anion Gap 14, BUN 108 H*, Creatinine 8.06 H*, Estim Creat Clear Calc 10.00, Est GFR (MDRD) Af Amer 9 L, Est GFR (MDRD) Non-Af 7 L, BUN/Creatinine Ratio 13.4, Glucose 91, Calcium 7.6 L 10/23/23 14:18: PT 19.7 H, INR 1.7, APTT 39.7 H Micro: Microbiology 10/17/23 Unknown Fluid - Synovial (joint) Gram Stain - Final 10/17/23 Unknown Fluid - Synovial (joint) Body Fluid Culture - Final No growth in 5 days. 10/17/23 Unknown Fluid - Synovial (joint) Anaerobic Culture - Final No growth in 5 days. 10/17/23 Unknown Fluid - Synovial (joint) Gram Stain - Final 10/17/23 Unknown Fluid - Synovial (joint) Body Fluid Culture - Final No growth in 5 days. 10/17/23 Unknown Fluid - Synovial (joint) Anaerobic Culture - Final No growth in 5 days. 10/17/23 17:34 Blood Culture (Wb) - Left Hand Blood Culture - Final No growth in 5 days. 10/14/23 11:25 Blood Culture (Wb) - Line Draw Blood Culture - Final No growth in 5 days. 10/12/23 16:30 Blood Culture (Wb) - Venous Blood Culture - Final Streptococcus group G 10/12/23 16:30 Blood Culture (Wb) - Venous Bacteria Detection (PCR) - Final Strep not Strep pneumo 10/12/23 16:30 Blood Culture (Wb) - Venous Blood Culture - Final Streptococcus group G 10/12/23 16:41 Urine Catheter - Cantrell Urine Culture - Final Streptococcus group G Radiography Diagnostic Testing: Radiology Impression Chest CT 10/18/23 14:47 IMPRESSION: Bilateral pleural effusions left greater than right with bibasilar compressive atelectasis more prominent on the left side. Electronically Signed: Nino Wood MD at 15:05 EDT , ADDENDUM: 10/23/23 1014 IMPRESSION: undefined Chest X-Ray 10/23/23 13:35 IMPRESSION: The tip of the left elbow Limited catheter is at the junction of the superior vena cava and right atrium. Slight increase in the bilateral pleural effusions greater on the left side with bibasilar dependent atelectasis. Vascular congestion and mild CHF. Electronically Signed: Nino Wood MD at 14:07 EDT , Physical Exam Narrative alert and no apparent distress General Appearance: cooperative, well kempt and well developed Orientation / Consciousness: awake, oriented to person and oriented to place HEENT normocephalic, head/scalp atraumatic and moist oral mucous membranes Eyes PERRL, EOMs intact bilaterally and conjunctivae normal Neck supple, no JVD, thyroid normal and no carotid bruits General: trachea midline Resp normal respiratory effort, no retractions, no use of accessory muscles and clear to auscultation bilaterally Auscultation: Negative for rales, rhonchi or wheezes Cardio regular rate, regular rhythm, S1 normal heart sound, S2 normal heart sound, no murmurs, no rub and no gallops GI normal to inspection, nondistended, normoactive bowel sounds, soft to palpation, non-tender and non-distended Extremity no clubbing, cyanosis or edema Skin no rashes or lesions noted General Skin Exam: no breakdown Neuro CN's II-XII intact bilaterally, no focal motor deficits and no sensory deficits noted Sensorium / Orientation: awake, alert, oriented to person and oriented to place Speech: speech normal Psych affect normal Assessment & Plan Assessment/Plan (1) Bacterial infection due to Streptococcus, group G: (2) Sepsis: PLAN: Plan 1. Sepsis secondary to acute cystitis and bacteremia from Streptococcus-patient is being seen by infectious diseases, antibiotics are being adjusted per infectious diseases, he remains on Ancef at this time #2 acute kidney injury-possibly secondary to ATN, patient underwent a renal biopsy, patient will undergo dialysis tomorrow #3 coronary artery disease-patient is stable at this time, he will remain on his present medications #4 hyperlipidemia-patient will remain on his present medications #5 bilateral pleural effusions-secondary to acute kidney injury, continue dialysis, patient's echocardiogram showed a left ventricular ejection fraction which was normal. #6 thrombus right IJ secondary to temporary dialysis catheter, patient will be placed on IV heparin tonight, general surgery wanted to wait till 8:00 tonight to start full anticoagulation due to his surgery. Total clinical time spent by myself addressing the patient's medical issues, reviewing all of his data, and collaborating with the patient's care team: 25 minutes Charges/Coding Visit Charges Inpatient E&M: 29651 Subs Hosp L1
[2023-10-23] MEDS: Heparin Injection (Vial) 5,000 UNIT/ML VIAL 7500 UNIT IV (20:09)
[2023-10-23] MEDS: HEPARIN/D5w 25,000 UNITS 25,000 UNITS/250 ML IV.SOLN. 14 UNITS CONT INF (20:10)
[2023-10-23] MEDS: 0.9% Saline Lock 10 ML Syringe IV (21:19)
[2023-10-23] MEDS: Cefazolin 1 GM/50 ML BAG IV (22:00)
[2023-10-23] MEDS: Atorvastatin Calcium 80 MG Tablet PO (22:03)
[2023-10-23] MEDS: Metoprolol Tartrate 25 MG Tablet PO (22:04)
[2023-10-23] MEDS: Senna/Docusate Sodium 1 Tablet 2 TABLET PO (22:05)
[2023-10-23] MEDS: Pantoprazole Sodium 40 MG Tablet PO (22:05)
[2023-10-24] VITALS (15 sets, daily range): BP systolic 101–219; BP diastolic 71–89; PULSE 81–116; RESP 15–18; TEMP 36.4–36.7; O2SAT 93–99; BMI 32.3; BMI 31.6
[2023-10-24 03:34] LABS: Partial Thromboplast Time > 200.0 Seconds (24.1-36.2)
[2023-10-24] MEDS: oxyCODONE 5 MG Tablet PO (04:13)
[2023-10-24] MEDS: 0.9% Normal Saline 1,000 ML IV.SOLN. 1000 ML OPERA.SITE (07:47)
[2023-10-24] MEDS: PureFlow B 2K Dialysis Soln 1 BAG 6 BAG PF (07:47)
[2023-10-24] MEDS: 0.9% Saline Lock 10 ML Syringe IV ×2 (07:49→23:25)
--- NOTE | 2023-10-24 08:22 | PCM.PN.SRG ---
Subjective Subjective Patient seen and examined during AM rounds and then later in the afternoon to follow-up bleeding around his catheter. Initially reports that he is running out from his surgeries and from dialysis. He denies any discomfort at his catheter site. Nursing reported that they had to change his dressing overnight and that it becomes saturated by my evaluation in the morning. Objective Data Objective Data Vital Signs: Vital Signs Temp Pulse Resp BP Pulse Ox O2 Del Method O2 Flow Rate 97.8 F 85 15 130/87 H 97 Room Air 2 10/24/23 04:10 10/24/23 07:59 10/24/23 07:59 10/24/23 07:59 10/24/23 07:59 10/24/23 07:59 10/23/23 12:42 Oxygen Flow Rate (L/min) 2 Oxygen Delivery Method Room Air Weight: 219 lb 5.759 oz Body Mass Index (BMI) 32.3 Intake & Output: Intake and Output for Last 24 Hours 10/22/23 10/23/23 10/24/23 23:59 23:59 23:59 Intake Total 1250 / 1250 323.25 / 803.25 1055.67 / 1055.67 Output Total 1180 / 1180 60 / 60 0 / 0 Balance 70 / 70 263.25 / 743.25 1055.67 / 1055.67 Lab / Micro Data 10/24/23 08:30 10/23/23 05:08 Labs: Laboratory Results - last 24 hr 10/23/23 14:18: PT 19.7 H, INR 1.7, APTT 39.7 H 10/24/23 02:07: APTT > 200.0 H* Micro: Microbiology 10/17/23 Unknown Fluid - Synovial (joint) Gram Stain - Final 10/17/23 Unknown Fluid - Synovial (joint) Body Fluid Culture - Final No growth in 5 days. 10/17/23 Unknown Fluid - Synovial (joint) Anaerobic Culture - Final No growth in 5 days. 10/17/23 Unknown Fluid - Synovial (joint) Gram Stain - Final 10/17/23 Unknown Fluid - Synovial (joint) Body Fluid Culture - Final No growth in 5 days. 10/17/23 Unknown Fluid - Synovial (joint) Anaerobic Culture - Final No growth in 5 days. 10/17/23 17:34 Blood Culture (Wb) - Left Hand Blood Culture - Final No growth in 5 days. 10/14/23 11:25 Blood Culture (Wb) - Line Draw Blood Culture - Final No growth in 5 days. 10/12/23 16:30 Blood Culture (Wb) - Venous Blood Culture - Final Streptococcus group G 10/12/23 16:30 Blood Culture (Wb) - Venous Bacteria Detection (PCR) - Final Strep not Strep pneumo 10/12/23 16:30 Blood Culture (Wb) - Venous Blood Culture - Final Streptococcus group G 10/12/23 16:41 Urine Catheter - Cantrell Urine Culture - Final Streptococcus group G Radiography Diagnostic Testing: Radiology Impression Chest CT 10/18/23 14:47 IMPRESSION: Bilateral pleural effusions left greater than right with bibasilar compressive atelectasis more prominent on the left side. Electronically Signed: Nino Wood MD at 15:05 EDT , ADDENDUM: 10/23/23 1014 IMPRESSION: undefined Chest X-Ray 10/23/23 13:35 IMPRESSION: The tip of the left elbow Limited catheter is at the junction of the superior vena cava and right atrium. Slight increase in the bilateral pleural effusions greater on the left side with bibasilar dependent atelectasis. Vascular congestion and mild CHF. Electronically Signed: Nino Wood MD at 14:07 EDT , Physical Exam Const oriented x3 Constitutional Narrative: Fatigue?appearing Neck Neck Narrative: Stable dressing over left IJ insertion site with just small spotting of dried blood Chest Chest Narrative: Initially there is blood actively oozing from the inferior portion of patient's subcutaneous tunnel beneath the hemodialysis catheter lumens. Assessment & Plan Assessment/Plan (1) Acute kidney injury: (2) Bleeding at insertion site: PLAN: Patient is a 68-year-old male postoperative day 1 from left tunneled hemodialysis catheter insertion. Postoperatively he was placed on a heparin drip due to finding of a right IJ thrombus. It appears his PTT became exceptionally elevated and this corresponded to some bleeding from the subcutaneous tunnel around his new catheter. It was changed once prior to my initial visit and changed again at the initial visit due to complete saturation. I attempted to place a hemostatic agent right at the tunnel exit site as well as a compressive dressing over the top. This initially appeared to be successful, however, upon my revisitation bleeding had restarted and I once again took down the dressing and this time placed a [id number] stitch over the tunnel exit site to bring the skin together about the base of the tunnel. A new chlorhexidine dressing was placed after thoroughly cleaning the site around the catheter. Nursing was instructed to watch for any ongoing bleeding. Patient tolerated this procedure without issue. Laci Calvert MD General Surgery Endocrine Surgery Pager: [facility] [address] [place] [address], [address] [place] [phone] Office: [phone] Charges/Coding Visit Charges Inpatient E&M: 90560 Subs Hosp L2
[2023-10-24 08:41] LABS: Absolute Lymphocyte Count 0.39 X10^3/uL (0.83-4.51); Absolute Neutrophil Count 8.5 X10^3/uL (2.0-7.7); Basophil# 0.02 X10^3/uL; Basophil% 0.2 % (0-1); Eosinophil# 0.03 X10^3/uL; Eosinophils% 0.3 % (0-5); Hemoglobin 9.9 g/dL (13.0-16.5); Lymphocyte # 0.39 X10^3/ul (0.83-4.51); Mean Corpuscular Hgb 26.8 pg (27.0-32.0); Mean Corpuscular Volume 81.1 fL (80-94); Mean Platelet Vol. 11.4 fl (6.2-12.0); Monocyte# 0.59 X10^3/uL; Monocyte% 6.1 % (0-10); NRBC Flagged by Analyzer 0 % (0-5); Neutrophil # 8.51 X10^3/uL (2.7-7.7); Neutrophil % 88.4 % (47-70); POSITIVE DIFFERENTIAL YES; Platelet Count 226 K/mm3 (150-450); RBC Distribution Width CV 16.2 % (11.6-14.6); RBC Distribution Width SD 47.4 fl (35.1-43.9); White Blood Count 9.6 K/mm3 (4.4-11.0)
[2023-10-24] MEDS: Metoprolol Tartrate 25 MG Tablet PO ×2 (09:32→23:25)
--- NOTE | 2023-10-24 09:44 | PCM.PN.REN ---
Subjective Subjective Found to have right IJ DVT. Left IJ tunneled dialysis catheter placed. Seen on dialysis today. No new complaints. Objective Data Objective Data Vital Signs: Vital Signs Temp Pulse Resp BP Pulse Ox O2 Del Method O2 Flow Rate 97.8 F 116 H 15 107/89 H 95 Room Air 2 10/24/23 04:10 10/24/23 09:32 10/24/23 08:59 10/24/23 09:32 10/24/23 08:59 10/24/23 08:59 10/23/23 12:42 Oxygen Flow Rate (L/min) 2 Oxygen Delivery Method Room Air Weight: 99.5 kg Body Mass Index (BMI) 32.3 Intake & Output: Intake and Output for Last 24 Hours 10/22/23 10/23/23 10/24/23 23:59 23:59 23:59 Intake Total 1250 / 1250 323.25 / 803.25 1055.67 / 1055.67 Output Total 1180 / 1180 60 / 60 0 / 0 Balance 70 / 70 263.25 / 743.25 1055.67 / 1055.67 Lab / Micro Data 10/24/23 08:30 10/23/23 05:08 Labs: Laboratory Results - last 24 hr 10/23/23 14:18: PT 19.7 H, INR 1.7, APTT 39.7 H 10/24/23 02:07: APTT > 200.0 H* 10/24/23 08:30: WBC 9.6, RBC 3.70 L, Hgb 9.9 L, Hct 30.0 L, MCV 81.1, MCH 26.8 L, MCHC 33.0, RDW Std Deviation 47.4 H, RDW Coeff of Marcos 16.2 H, Plt Count 226, MPV 11.4, Immature Gran % (Auto) 1.000 H, Neut % (Auto) 88.4 H, Lymph % (Auto) 4.0 L, [place] % (Auto) 6.1, Eos % (Auto) 0.3, Baso % (Auto) 0.2, Absolute Neuts (auto) 8.5 H, Absolute Lymphs (auto) 0.39 L, Nucleated RBC % 0 Micro: Microbiology 10/17/23 Unknown Fluid - Synovial (joint) Gram Stain - Final 10/17/23 Unknown Fluid - Synovial (joint) Body Fluid Culture - Final No growth in 5 days. 10/17/23 Unknown Fluid - Synovial (joint) Anaerobic Culture - Final No growth in 5 days. 10/17/23 Unknown Fluid - Synovial (joint) Gram Stain - Final 10/17/23 Unknown Fluid - Synovial (joint) Body Fluid Culture - Final No growth in 5 days. 10/17/23 Unknown Fluid - Synovial (joint) Anaerobic Culture - Final No growth in 5 days. 10/17/23 17:34 Blood Culture (Wb) - Left Hand Blood Culture - Final No growth in 5 days. 10/14/23 11:25 Blood Culture (Wb) - Line Draw Blood Culture - Final No growth in 5 days. 10/12/23 16:30 Blood Culture (Wb) - Venous Blood Culture - Final Streptococcus group G 10/12/23 16:30 Blood Culture (Wb) - Venous Bacteria Detection (PCR) - Final Strep not Strep pneumo 10/12/23 16:30 Blood Culture (Wb) - Venous Blood Culture - Final Streptococcus group G 10/12/23 16:41 Urine Catheter - Cantrell Urine Culture - Final Streptococcus group G Radiography Diagnostic Testing: Radiology Impression Chest CT 10/18/23 14:47 IMPRESSION: Bilateral pleural effusions left greater than right with bibasilar compressive atelectasis more prominent on the left side. Electronically Signed: Nino Wood MD at 15:05 EDT , ADDENDUM: 10/23/23 1014 IMPRESSION: undefined Chest X-Ray 10/23/23 13:35 IMPRESSION: The tip of the left elbow Limited catheter is at the junction of the superior vena cava and right atrium. Slight increase in the bilateral pleural effusions greater on the left side with bibasilar dependent atelectasis. Vascular congestion and mild CHF. Electronically Signed: Nino Wood MD at 14:07 EDT , Physical Exam Narrative Alert and oriented, no apparent distress S1, S2, RRR Lung sounds clear Abdomen soft, nontender Edema bilateral lower legs and arms Const alert, oriented x3, no apparent distress and average body habitus General Appearance: well developed Orientation / Consciousness: oriented to person, oriented to place and oriented to time HEENT normocephalic Neck no lymphadenopathy Resp no use of accessory muscles Cardio regular rate Cardio Narrative: tachycardia GI non-tender Auscultation: normoactive bowel sounds Palpation: soft Bladder / Kidney Exam: catheter in place Extremity no clubbing, cyanosis or edema Skin no rashes or lesions noted Neuro Sensorium / Orientation: awake and alert Psych cooperative Assessment & Plan Assessment/Plan (1) Acute kidney injury: PLAN: Impression/Plan: The patient is a 68-year-old male with past history of hypertension, CAD status post CABG, aortic stenosis, esophageal cancer, GERD, and hyperlipidemia. Patient presented to hospital on 10/12/2023 with right flank pain, altered mental status and gross hematuria. Patient was found to have UTI with bloodstream infection with Streptococcus group G. Nephrology is following for dialysis dependent acute kidney injury. Acute kidney injury. Normal baseline creatinine. As recent as 10/05/2023, his creatinine was normal at 1.00 mg/dL. Extensive history of kidney stone. He had a CT scan beginning of September where there were kidney stones with mild hydronephrosis. Repeat CT scan here on admission did not show any hydronephrosis. Essentially anuric since admission. Cantrell removed. Started on dialysis 10/15/2023. Has Streptococcus group G in blood and in the urine bilateral knee effusions s/p aspiration echo done on 10/17: EF 55%, moderate to large sized pericardial effusion versus pericardial tumor (had echo September 2023 EF 56%, no pericardial effusion). CT chest showed hiatal hernia no mass. -Kidney biopsy preliminary showing ATN. Discussed this with patient. -Group G strep bacteremia, suspect urinary source. On cefazolin. ID following for antibiotics. Blood cultures negative from 10/13 and 10/16. Synovial fluid no growth. Antibiotic recommendations cefazolin 6 weeks post HD, stop date November 24. Discussed with primary attending. Will be started on Eliquis likely tomorrow. Okay to make discharge plans, will likely need rehab. Seen on dialysis today. So far doing well. Not much urine output.
[2023-10-24] MEDS: Heparin 10,000 UNITS/10 ML Vial IV (11:25)
[2023-10-24] MEDS: Pantoprazole Sodium 40 MG Tablet PO ×2 (12:04→23:25)
[2023-10-24] MEDS: Senna/Docusate Sodium 1 Tablet 2 TABLET PO ×2 (12:04→23:25)
[2023-10-24] MEDS: Ezetimibe 10 MG Tablet PO (12:04)
[2023-10-24] MEDS: Menthol/Lanolin/Calamine/Znox 113 GM Tube 1 APPLIC TOPICAL ×2 (12:05→23:25)
--- NOTE | 2023-10-24 12:07 | CASEMGMT ---
JESÚS sent patient's dialysis chair time and script for IV antibiotic (to be given at dialysis) to [facility]. JESÚS also sent the IV antibiotic prescription to [facility] and let them know patient will likely be there for treatment Sunday. Fidelina Benavides NANOTECHNOLOGIST HUNTER
--- NOTE | 2023-10-24 14:30 | CASEMGMT ---
MICHELE HILLMAN received chair time for outpatient HD via [employer] portal for MWF 1220. MICHELE HILLMAN called Sheri at [facility] to confirm start of care date. Anticipated DC date is 10/24 with first HD on 10/25. Sheri updated that chair time is MWF 1050 and states she updated the [facility] regarding time chair. MICHELE HILLMAN updated regarding HD schedule.
--- NOTE | 2023-10-24 18:37 | PN.HOSP_ITS ---
Reason for Visit Reason for Visit: Diagnoses Sepsis, unspecified organism (10/12/23) Other streptococcus as the cause of diseases classified elsewhere (10/12/23) Thrombocytopenia, unspecified (10/12/23) Effusion, right knee (10/12/23) Effusion, left knee (10/12/23) Acute kidney failure, unspecified (10/12/23) Unspecified jaundice (10/12/23) Presence of aortocoronary bypass graft (10/12/23) Presence of prosthetic heart valve (10/12/23) Subjective Subjective Patient was seen and examined today, his was in the room at the time of my examination and I went over his medical care with her. According to nursing he had quite a bit of bleeding from his wound sites, at the time my exam this afternoon I do not see any bleeding. Patient's hemoglobin appears to be stable from yesterday Objective Data Objective Data Vital Signs: Vital Signs Temp Pulse Resp BP Pulse Ox O2 Del Method O2 Flow Rate 97.6 F L 83 16 101/85 H 94 Room Air 2 10/24/23 16:05 10/24/23 16:05 10/24/23 16:05 10/24/23 16:05 10/24/23 16:05 10/24/23 16:05 10/23/23 12:42 Oxygen Flow Rate (L/min) 2 Oxygen Delivery Method Room Air Weight: 97 kg Body Mass Index (BMI) 31.6 Intake & Output: Intake and Output for Last 24 Hours 10/22/23 10/23/23 10/24/23 23:59 23:59 23:59 Intake Total 1250 / 1250 323.25 / 803.25 1579.82 / 1579.82 Output Total 1180 / 1180 60 / 60 2400 / 2400 Balance 70 / 70 263.25 / 743.25 -820.18 / -820.18 Lab / Micro Data 10/24/23 08:30 10/23/23 05:08 Labs: Laboratory Results - last 24 hr 10/24/23 02:07: APTT > 200.0 H* 10/24/23 08:30: WBC 9.6, RBC 3.70 L, Hgb 9.9 L, Hct 30.0 L, MCV 81.1, MCH 26.8 L , MCHC 33.0, RDW Std Deviation 47.4 H, RDW Coeff of Marcos 16.2 H, Plt Count 226, MPV 11.4, Immature Gran % (Auto) 1.000 H, Neut % (Auto) 88.4 H, Lymph % (Auto) 4.0 L, [place] % (Auto) 6.1, Eos % (Auto) 0.3, Baso % (Auto) 0.2, Absolute Neuts (auto) 8.5 H, Absolute Lymphs (auto) 0.39 L, Nucleated RBC % 0 10/24/23 14:40: APTT 78.0 H Micro: Microbiology 10/17/23 Unknown Fluid - Synovial (joint) Gram Stain - Final 10/17/23 Unknown Fluid - Synovial (joint) Body Fluid Culture - Final No growth in 5 days. 10/17/23 Unknown Fluid - Synovial (joint) Anaerobic Culture - Final No growth in 5 days. 10/17/23 Unknown Fluid - Synovial (joint) Gram Stain - Final 10/17/23 Unknown Fluid - Synovial (joint) Body Fluid Culture - Final No growth in 5 days. 10/17/23 Unknown Fluid - Synovial (joint) Anaerobic Culture - Final No growth in 5 days. 10/17/23 17:34 Blood Culture (Wb) - Left Hand Blood Culture - Final No growth in 5 days. 10/14/23 11:25 Blood Culture (Wb) - Line Draw Blood Culture - Final No growth in 5 days. 10/12/23 16:30 Blood Culture (Wb) - Venous Blood Culture - Final Streptococcus group G 10/12/23 16:30 Blood Culture (Wb) - Venous Bacteria Detection (PCR) - Final Strep not Strep pneumo 10/12/23 16:30 Blood Culture (Wb) - Venous Blood Culture - Final Streptococcus group G 10/12/23 16:41 Urine Catheter - Cantrell Urine Culture - Final Streptococcus group G Physical Exam Narrative alert and no apparent distress General Appearance: cooperative, well kempt and well developed Orientation / Consciousness: awake, oriented to person and oriented to place HEENT normocephalic, head/scalp atraumatic and moist oral mucous membranes Eyes PERRL, EOMs intact bilaterally and conjunctivae normal Neck supple, no JVD, thyroid normal and no carotid bruits General: trachea midline Resp normal respiratory effort, no retractions, no use of accessory muscles and clear to auscultation bilaterally Auscultation: Negative for rales, rhonchi or wheezes Cardio regular rate, regular rhythm, S1 normal heart sound, S2 normal heart sound, no murmurs, no rub and no gallops GI normal to inspection, nondistended, normoactive bowel sounds, soft to palpation, non-tender and non-distended Extremity no clubbing, cyanosis or edema Skin no rashes or lesions noted General Skin Exam: no breakdown Neuro CN's II-XII intact bilaterally, no focal motor deficits and no sensory deficits noted Sensorium / Orientation: awake, alert, oriented to person and oriented to place Speech: speech normal Psych affect normal Assessment & Plan Assessment/Plan (1) Bacterial infection due to Streptococcus, group G: (2) Sepsis: PLAN: Plan 1. Sepsis secondary to acute cystitis and bacteremia from Streptococcus-patient is being seen by infectious diseases, antibiotics are being adjusted per infectious diseases, he remains on Ancef at this time #2 acute kidney injury-possibly secondary to ATN, patient underwent a renal biopsy, nephrology is following #3 coronary artery disease-patient is stable at this time, he will remain on his present medications #4 hyperlipidemia-patient will remain on his present medications #5 bilateral pleural effusions-secondary to acute kidney injury, continue dialysis, patient's echocardiogram showed a left ventricular ejection fraction which was normal. #6 thrombus right IJ secondary to temporary dialysis catheter, patient remains on heparin at this time, he will be transitioned over to Eliquis in a few days.. #7 generalized weakness-PT and OT are continuing to see the patient, he will need temporary placement in a shelter facility for inpatient rehab services. Plans are being made for the patient to go to the [facility]. Total clinical time spent by myself addressing the patient's medical issues, reviewing all of his data, and collaborating with the patient's care team: 35 minutes Charges/Coding Visit Charges Inpatient E&M: 85707 Subs Hosp L2
[2023-10-24] MEDS: HEPARIN/D5w 25,000 UNITS 25,000 UNITS/250 ML IV.SOLN. 11 UNITS CONT INF (20:32)
[2023-10-24 22:27] LABS: Partial Thromboplast Time 162.3 Seconds (24.1-36.2)
[2023-10-24] MEDS: Cefazolin 1 GM/50 ML BAG IV (23:25)
[2023-10-24] MEDS: Atorvastatin Calcium 80 MG Tablet PO (23:25)
[2023-10-25 03:31] VITALS: BMI 31.7
[2023-10-25 04:01] VITALS: BP 116/81; PULSE 82; RESP 18; TEMP 36.8; O2SAT 95
[2023-10-25 06:48] LABS: Partial Thromboplast Time 56.7 Seconds (24.1-36.2)
--- NOTE | 2023-10-25 08:25 | PCM.PN.SRG ---
Subjective Subjective Patient evaluated resting comfortably in bed. He denies any more bleeding from the catheter site since the placement of the figure suture. He does not have dialysis today. Objective Data Objective Data Vital Signs: Vital Signs Temp Pulse Resp BP Pulse Ox O2 Del Method O2 Flow Rate 98.2 F 82 18 116/81 H 95 Room Air 2 10/25/23 04:01 10/25/23 04:01 10/25/23 04:01 10/25/23 04:01 10/25/23 04:01 10/25/23 04:01 10/23/23 12:42 Oxygen Flow Rate (L/min) 2 Oxygen Delivery Method Room Air Weight: 214 lb 11.684 oz Body Mass Index (BMI) 31.7 Intake & Output: Intake and Output for Last 24 Hours 10/23/23 10/24/23 10/25/23 23:59 23:59 23:59 Intake Total 323.25 / 803.25 1702.79 / 1702.79 50.8 / 50.8 Output Total 60 / 60 2400 / 2700 300 / 300 Balance 263.25 / 743.25 -697.21 / -997.21 -249.2 / -249.2 Lab / Micro Data 10/24/23 08:30 10/23/23 05:08 Labs: Laboratory Results - last 24 hr 10/24/23 08:30: WBC 9.6, RBC 3.70 L, Hgb 9.9 L, Hct 30.0 L, MCV 81.1, MCH 26.8 L, MCHC 33.0, RDW Std Deviation 47.4 H, RDW Coeff of Marcos 16.2 H, Plt Count 226, MPV 11.4, Immature Gran % (Auto) 1.000 H, Neut % (Auto) 88.4 H, Lymph % (Auto) 4.0 L, [place] % (Auto) 6.1, Eos % (Auto) 0.3, Baso % (Auto) 0.2, Absolute Neuts (auto) 8.5 H, Absolute Lymphs (auto) 0.39 L, Nucleated RBC % 0 10/24/23 14:40: APTT 78.0 H 10/24/23 21:50: APTT 162.3 H* 10/25/23 06:26: APTT 56.7 H Micro: Microbiology 10/17/23 Unknown Fluid - Synovial (joint) Gram Stain - Final 10/17/23 Unknown Fluid - Synovial (joint) Body Fluid Culture - Final No growth in 5 days. 10/17/23 Unknown Fluid - Synovial (joint) Anaerobic Culture - Final No growth in 5 days. 10/17/23 Unknown Fluid - Synovial (joint) Gram Stain - Final 10/17/23 Unknown Fluid - Synovial (joint) Body Fluid Culture - Final No growth in 5 days. 10/17/23 Unknown Fluid - Synovial (joint) Anaerobic Culture - Final No growth in 5 days. 10/17/23 17:34 Blood Culture (Wb) - Left Hand Blood Culture - Final No growth in 5 days. 10/14/23 11:25 Blood Culture (Wb) - Line Draw Blood Culture - Final No growth in 5 days. 10/12/23 16:30 Blood Culture (Wb) - Venous Blood Culture - Final Streptococcus group G 10/12/23 16:30 Blood Culture (Wb) - Venous Bacteria Detection (PCR) - Final Strep not Strep pneumo 10/12/23 16:30 Blood Culture (Wb) - Venous Blood Culture - Final Streptococcus group G 10/12/23 16:41 Urine Catheter - Cantrell Urine Culture - Final Streptococcus group G Physical Exam Chest Chest Narrative: Left chest- dialysis catheter intact. No active bleeding noted. Dressing intact. Assessment & Plan Assessment/Plan (1) Acute kidney injury: PLAN: I am following this patient in conjunction with Dr. Carroll in Dr. Kowalski and Dr. Calvert's absence. She has independently evaluated this patient. No further issues or concerns with the chest catheter We will sign off at this time. Please contact us if needed. Thank you Charges/Coding Visit Charges Inpatient E&M: 64892 Subs Hosp L1 (no charge; post-op)
[2023-10-25 09:16] VITALS: BP 125/72; PULSE 96; RESP 20; TEMP 36.3; O2SAT 96
[2023-10-25] MEDS: Ezetimibe 10 MG Tablet PO (09:18)
[2023-10-25] MEDS: Senna/Docusate Sodium 1 Tablet 2 TABLET PO (09:18)
[2023-10-25 09:19] VITALS: PULSE 96
[2023-10-25] MEDS: Metoprolol Tartrate 25 MG Tablet PO (09:19)
[2023-10-25] MEDS: Aspirin 81 MG TAB.CHEW PO (09:19)
[2023-10-25] MEDS: Pantoprazole Sodium 40 MG Tablet PO (09:19)
[2023-10-25] MEDS: Menthol/Lanolin/Calamine/Znox 113 GM Tube 1 APPLIC TOPICAL (09:25)
--- NOTE | 2023-10-25 11:16 | TREXTCAR_ITS ---
Diet Diet Order/Speech Therapy: 10/23/23 13:37 Diet: Renal - General Type of Dietary Supplement:: Nepro Is pt able to select menu?: Yes Diet Comments: Nepro with lunch and dinner Routine Orders/Code Status Code Status: Full Code Wound(s) back: Wound Type: healed martell from heating pad at home Dressing Change: Adaptic left flank: Wound Type: dry and intact lower back: Wound Type: Puncture LEFT CHEST: Wound Type: Surgical Incision NECK: Wound Type: Puncture Therapies Weight Bearing: Full weight bearing Physical Therapy: Eval and Treat Occupational Therapy: Eval and Treat Problem/Diagnosis (1) Acute kidney injury: Status: Acute Code(s): N17.9 - Acute kidney failure, unspecified (2) Bleeding at insertion site: Status: Acute Code(s): L76.82 - Other postprocedural complications of skin and subcutaneous tissue (3) Knee pain: Status: Acute Code(s): M25.569 - Pain in unspecified knee Plan 1. Sepsis secondary to acute cystitis and bacteremia from Streptococcus-patient is being seen by infectious diseases, antibiotics are being adjusted per infectious diseases, he remains on Ancef at this time #2 acute kidney injury-possibly secondary to ATN, patient underwent a renal biopsy, nephrology is following #3 coronary artery disease-patient is stable at this time, he will remain on his present medications #4 hyperlipidemia-patient will remain on his present medications #5 bilateral pleural effusions-secondary to acute kidney injury, continue dialysis, patient's echocardiogram showed a left ventricular ejection fraction which was normal. #6 thrombus right IJ secondary to temporary dialysis catheter, patient remains on heparin at this time, he will be transitioned over to Eliquis in a few days.. #7 generalized weakness-PT and OT are continuing to see the patient, he will need temporary placement in a intermediate facility for inpatient rehab services. Plans are being made for the patient to go to the [facility]. Total clinical time spent by myself addressing the patient's medical issues, reviewing all of his data, and collaborating with the patient's care team: 35 minutes Allergies/Procedures Done in Hospital Allergies No Known Allergies Allergy (Verified 10/12/23 16:11) Procedures: 2-D Echocardiogram and - (Tunneled dialysis catheter placement, temporary dialysis catheter placement right IJ) Type of Care/Length of Stay Estimated LOS: Convalescent Care Less Than 30 days Type of Care Needed: Skilled Rehab Potential: Good Prognosis: Good Additional Orders/Day of Discharge H&P will serve as current which was dated: 10/12/23 Day of Discharge: 10/25/23 Dietary and Speech Recommendations Dietitian Recommendations/Changes: Continue current diet order, Renal general diet and nepro bid to provide additional energy and protein while on dialysis. Provide diet education prior to d/c if indicated by pt. 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 Dx: strep bacteremia. cefazolin iv with dialysis: 2gm on Mon, 2gm on Sun, 3gm on Sun. Weekly bmp and cbc. Fax to [phone]. acetaminophen 325 mg Tablet 650 mg PO Q6H PRN PRN (Reason: Pain 1-10 Or Fever >100.7) Qty: 0 0RF melatonin 3 mg Tablet 3 mg PO QHS PRN PRN (Reason: Insomnia) Qty: 0 0RF menthol-zinc oxide [Calmoseptine] 0.44-20.6 % Ointment 1 applic topical BID Qty: 0 0RF Protocol: *Topical Application Instructions APPLICATION INSTRUCTIONS: coccyx oxycodone 5 mg Tablet 2.5 - 5 mg PO Q4H PRN PRN (Reason: Pain Score 4-10) 2 Days Qty: 10 0RF metoprolol tartrate 25 mg Tablet 25 mg PO BID Qty: 0 0RF sennosides-docusate sodium [Stimulant Laxative Plus] 8.6-50 mg Tablet 2 tab PO BID Qty: 0 0RF pantoprazole 40 mg Tablet,Delayed Release (Dr/Ec) 40 mg PO BID Qty: 0 0RF polyethylene glycol 3350 [Miralax] 17 gram/dose powder 17 g PO BID Qty: 119 0RF Eliquis 5 mg Tablet 10 mg PO BID Qty: 0 0RF Rx Instructions: two twice a day for 13 doses, then one twice a day thereafter-take for 12 weeks Continued atorvastatin 80 mg tablet 80 mg PO QHS Qty: 90 3RF ezetimibe 10 mg tablet 10 mg PO DAILY Qty: 90 3RF aspirin 81 MG tablet,chewable 81 mg PO DAILY@0800 Patient Comments: HEART/BLOOD THINNER Discontinued amlodipine 10 mg tablet 10 mg PO DAILY Qty: 90 3RF metoprolol tartrate 25 mg tablet 25 mg PO BID Qty: 180 3RF Rx Instructions: Hold for heart less than 60 or systolic blood pressure less than 100 mmHg. nitroglycerin 0.4 mg tablet, sublingual 0.4 mg SUBLINGUAL Q5M PRN (Reason: Chest Pain) Qty: 25 3RF pantoprazole [Protonix] 40 mg tablet,delayed release (DR/EC) 40 mg PO BID hydrocodone-acetaminophen 5-325 mg tablet 1 tab PO Q4H PRN PRN (Reason: Pain) 3 Days Qty: 10 0RF ondansetron 4 mg tablet,disintegrating 4 mg PO Q8H PRN PRN (Reason: Nausea) Qty: 10 0RF nystatin 100,000 unit/gram cream 1 applic topical BID ondansetron HCl 8 mg tablet 8 mg PO Q8H PRN PRN (Reason: nausea/vomiting) hydrocodone-acetaminophen 5-325 mg tablet 1 tab PO Q4H PRN PRN (Reason: Pain) 4 Days Qty: 20 0RF furosemide 20 mg tablet 20 mg PO DAILY Qty: 14 0RF potassium chloride 20 mEq tablet extended release 20 meq PO BID Qty: 20 0RF Referrals / Follow Up: Yaw Singh MD [Primary Care Provider] - Disposition Disposition (needs filled in before D/C Order can be placed): [facility]
--- NOTE | 2023-10-25 11:56 | PCM.DC.SUM ---
Providers Date of Admission: 10/12/23 Date of Discharge: 10/25/23 Primary Care Physician: Dr. Yaw Singh MD Consultations 10/13/23 04:21 Consult: Onc/Wound/hair baler Routine Comment: Reason for Consult:: wound to lower back 10/13/23 17:09 Consult: Nephrology Routine Consulting Provider: Rere Glass Reason for Consult: renal failure, uremia EMERGENT Consult: No MD Notified: Yes Date Notified: 10/13/23 Time Notified: 17:09 Method of Notification: Answering Service 10/17/23 13:47 Consult: Infectious Disease Routine Consulting Provider: Scout Mann Reason for Consult: Strep bacteremia EMERGENT Consult: No MD Notified: Yes Date Notified: 10/17/23 Time Notified: 13:48 Method of Notification: Verbal 10/17/23 15:49 Consult: Orthopedics Routine Consulting Provider: Kody Baker Reason for Consult: strep bacteremia, suspected L knee septic arthritis EMERGENT Consult: No MD Notified: Yes Date Notified: 10/17/23 Time Notified: 15:55 Method of Notification: Verbal 10/21/23 15:58 Consult: General Surgery Routine Consulting Provider: Jarrell Kowalski Reason for Consult: need for tunneled dialysis catheter EMERGENT Consult: No MD Notified: Yes Date Notified: 10/21/23 Time Notified: 15:58 Method of Notification: Verbal Reason For Visit: SEVERE SEPSIS Diagnosis Discharge Diagnosis (1) Acute kidney injury: Status: Acute Code(s): N17.9 - Acute kidney failure, unspecified (2) Bleeding at insertion site: Status: Acute Code(s): L76.82 - Other postprocedural complications of skin and subcutaneous tissue (3) Knee pain: Status: Acute Code(s): M25.569 - Pain in unspecified knee Plan 1. Sepsis secondary to acute cystitis and bacteremia from Streptococcus-patient is being seen by infectious diseases, antibiotics are being adjusted per infectious diseases, he remains on Ancef at this time #2 acute kidney injury-possibly secondary to ATN, patient underwent a renal biopsy, nephrology is following #3 coronary artery disease-patient is stable at this time, he will remain on his present medications #4 hyperlipidemia-patient will remain on his present medications #5 bilateral pleural effusions-secondary to acute kidney injury, continue dialysis, patient's echocardiogram showed a left ventricular ejection fraction which was normal. #6 thrombus right IJ secondary to temporary dialysis catheter, patient remains on heparin at this time, he will be transitioned over to Eliquis in a few days.. #7 generalized weakness-PT and OT are continuing to see the patient, he will need temporary placement in a senior living facility for inpatient rehab services. Plans are being made for the patient to go to the [facility]. Total clinical time spent by myself addressing the patient's medical issues, reviewing all of his data, and collaborating with the patient's care team: 35 minutes Medications at Discharge Home Medications aspirin 81 mg chewable tablet 81 mg PO DAILY@0800 HEALTH 01/23/14 atorvastatin 80 mg tablet 80 mg PO QHS CHOLESTEROL #90 tabs 05/15/22 ezetimibe 10 mg tablet 10 mg PO DAILY CHOLESTEROL #90 tabs 05/15/22 cefazolin 2 gram intravenous solution 2 g IV .see below 33 days 10/23/23 acetaminophen 325 mg tablet 650 mg (2 x 325 mg) PO Q6H PRN PRN Pain 1-10 Or Fever >100.7 #0 tabs 10/25/23 apixaban 5 mg tablet (Eliquis) 10 mg (2 x 5 mg) PO BID #0 tabs 10/25/23 melatonin 3 mg tablet 3 mg PO QHS PRN PRN Insomnia #0 tabs 10/25/23 menthol 0.44 %-zinc oxide 20.6 % topical ointment (Calmoseptine) 1 applic topical BID #0 grams 10/25/23 metoprolol tartrate 25 mg tablet 25 mg PO BID #0 tabs 10/25/23 oxycodone 5 mg tablet 2.5 - 5 mg (0.5 - 1 x 5 mg) PO Q4H PRN PRN Pain Score 4-10 2 days #10 tabs 10/25/23 pantoprazole 40 mg tablet,delayed release 40 mg PO BID #0 tabs 10/25/23 polyethylene glycol 3350 17 gram/dose oral powder (Miralax) 17 g PO BID #119 grams 10/25/23 sennosides 8.6 mg-docusate sodium 50 mg tablet (Stimulant Laxative Plus) 2 tab PO BID #0 tabs 10/25/23 Hospital Course Operations - (Tunneled dialysis catheter placement) Procedures 2-D Echocardiogram and Dialysis Summary of Care Provided Minutes Spent on Discharge: 31 Hospital Course: This 68-year-old white male was seen in the emergency room at [facility] with complaints of diaphoresis and confusion, his brought him in because of confusion, diaphoresis, and hematuria. He has complaints of right flank pain. Labs obtained showed a normal white blood cell count of 9.4, hemoglobin was 14.7, creatinine was elevated at 3.54 and BUN was 52. Patient's lactic acid was elevated at 3.5, total bilirubin was high at 2.3 and AST was 70. Patient's urinalysis showed +2 bacteria, 50-100 RBCs, and 10-25 WBCs. Chest x-ray showed bilateral pleural effusions left greater than right and cardiomegaly. There is also noted to be bibasilar atelectasis. Patient was admitted to the hospital with a diagnosis of severe sepsis with hematuria and metabolic encephalopathy along with a complicated urinary tract infection, he was placed on IV antibiotics and IV fluids. Due to the elevated creatinine, patient was seen by nephrology. Patient had bilateral knee effusions and was seen in consultation by orthopedic surgery who performed aspiration of both knees, fluid did not grow out any bacteria, patient's blood cultures were positive for strep and he was seen by infectious diseases. Due to patient's rising creatinine, a temporary dialysis catheter was placed and patient went through dialysis. Patient's follow-up blood cultures were negative, there was a discussion about possibly doing a RICKY but since the patient had previous esophageal surgery, cardiology did not feel this was a safe procedure. Patient had a transthoracic echo which initially was read out as showing a pericardial effusion and possible pericardial metastases, it was recommended a CT of the chest be obtained, the CT only showed pleural effusions and it was felt that the patient really did not have a pericardial effusion or pericardial metastases. Patient was seen by PT and OT, it was recommended that he go to a skilled care facility for short-term rehab services. He tunneled dialysis catheter was placed without incident, it was noted however that the patient had a thrombus in the right IJ where the temporary dialysis catheter had been placed and he was placed on anticoagulation. On 10/25/2023, patient was seen and examined: On examination he appeared in good health and spirits. Vital signs as documented. Skin warm and dry and without overt rashes. Neck without JVD, neck was supple, trachea midline, thyroid was normal. Lungs clear bilaterally, normal air movement was noted. Heart exam notable for regular rhythm, normal sounds and absence of murmurs, rubs or gallops. Abdomen unremarkable and without evidence of organomegaly, masses, or abdominal aortic enlargement. Bowel sounds are present, abdomen is not distended. Extremities nonedematous, no cyanosis was noted, no clubbing was noted. Neuro: Cranial nerves II through XII are grossly intact, no focal motor deficits were noted, sensation to light touch and pinprick intact, motor exam 5/5 throughout. Psych: Patient is alert and oriented x3, he does not appear anxious or depressed, he does not appear agitated. Patient appear to be stable for discharge to an extended care facility on 10/25/2023 in stable condition. Weight / BMI Weight Weight: 97.4 kg Body Mass Index (BMI) 31.7 ABG / Lab / Microbiology Data 10/24/23 08:30 10/23/23 05:08 Laboratory: Laboratory Results - last 24 hr 10/24/23 14:40: APTT 78.0 H 10/24/23 21:50: APTT 162.3 H* 10/25/23 06:26: APTT 56.7 H Microbiology: Microbiology 10/17/23 Unknown Fluid - Synovial (joint) Gram Stain - Final 10/17/23 Unknown Fluid - Synovial (joint) Body Fluid Culture - Final No growth in 5 days. 10/17/23 Unknown Fluid - Synovial (joint) Anaerobic Culture - Final No growth in 5 days. 10/17/23 Unknown Fluid - Synovial (joint) Gram Stain - Final 10/17/23 Unknown Fluid - Synovial (joint) Body Fluid Culture - Final No growth in 5 days. 10/17/23 Unknown Fluid - Synovial (joint) Anaerobic Culture - Final No growth in 5 days. 10/17/23 17:34 Blood Culture (Wb) - Left Hand Blood Culture - Final No growth in 5 days. 10/14/23 11:25 Blood Culture (Wb) - Line Draw Blood Culture - Final No growth in 5 days. 10/12/23 16:30 Blood Culture (Wb) - Venous Blood Culture - Final Streptococcus group G 10/12/23 16:30 Blood Culture (Wb) - Venous Bacteria Detection (PCR) - Final Strep not Strep pneumo 10/12/23 16:30 Blood Culture (Wb) - Venous Blood Culture - Final Streptococcus group G 10/12/23 16:41 Urine Catheter - Cantrell Urine Culture - Final Streptococcus group G Meaningful Use Info Meaningful Use Meaningful Use Diagnoses (Choose all that apply): None applicable Ischemic Stroke Statin Dosing Therapy Reference: STATIN DOSE THERAPY REFERENCE: * Patients > 75 years receive moderate or high dose statin therapy. * Patients 75 years or YOUNGER should receive HIGH intensity statin dose unless contraindicated. You will be required to document reason for non-treatment if statin daily dose does not meet guidelines. HIGH DOSE STATIN THERAPY DAILY Atorvastatin > than or = to 40 mg Rosuvastatin > than or = to 20 mg Amlodipine + Atorvastatin > than or = to 2.5/40 mg Ezetimibe + Simvastatin 10/80 mg Simvastatin 80mg Discharge Plan Admission Admit Date/Time: 10/12/23 18:26 Primary Reason for Your Visit: Acute renal failure, sepsis with bacteremia, VTE right IJ Attending Provider: Jesse Almanzar Primary Care Provider: Yaw Singh Consulting Providers: Paloma Pryor; Rere Glass; Kody Avila; Scout Mann; Kody Baker; Jesus Manuel Stone; Jarrell Kowalski Instructions Patient Instructions: RAD blocker heated metal forms Instructions for Kidney Biopsy, SOMMER RN Procedural Sedation Discharge Orders/Prescriptions Prescriptions: New cefazolin 2 gram recon soln 2 g IV .see below 33 Days Rx Instructions: stop date 11/25/23. Dx: strep bacteremia. cefazolin iv with dialysis: 2gm on Mon, 2gm on Sun, 3gm on Sun. Weekly bmp and cbc. Fax to [phone]. acetaminophen 325 mg Tablet 650 mg PO Q6H PRN PRN (Reason: Pain 1-10 Or Fever >100.7) Qty: 0 0RF melatonin 3 mg Tablet 3 mg PO QHS PRN PRN (Reason: Insomnia) Qty: 0 0RF menthol-zinc oxide [Calmoseptine] 0.44-20.6 % Ointment 1 applic topical BID Qty: 0 0RF Protocol: *Topical Application Instructions APPLICATION INSTRUCTIONS: coccyx oxycodone 5 mg Tablet 2.5 - 5 mg PO Q4H PRN PRN (Reason: Pain Score 4-10) 2 Days Qty: 10 0RF metoprolol tartrate 25 mg Tablet 25 mg PO BID Qty: 0 0RF sennosides-docusate sodium [Stimulant Laxative Plus] 8.6-50 mg Tablet 2 tab PO BID Qty: 0 0RF pantoprazole 40 mg Tablet,Delayed Release (Dr/Ec) 40 mg PO BID Qty: 0 0RF polyethylene glycol 3350 [Miralax] 17 gram/dose powder 17 g PO BID Qty: 119 0RF Eliquis 5 mg Tablet 10 mg PO BID Qty: 0 0RF Rx Instructions: two twice a day for 13 doses, then one twice a day thereafter-take for 12 weeks Continued atorvastatin 80 mg tablet 80 mg PO QHS Qty: 90 3RF ezetimibe 10 mg tablet 10 mg PO DAILY Qty: 90 3RF aspirin 81 MG tablet,chewable 81 mg PO DAILY@0800 Patient Comments: HEART/BLOOD THINNER Discontinued amlodipine 10 mg tablet 10 mg PO DAILY Qty: 90 3RF metoprolol tartrate 25 mg tablet 25 mg PO BID Qty: 180 3RF Rx Instructions: Hold for heart less than 60 or systolic blood pressure less than 100 mmHg. nitroglycerin 0.4 mg tablet, sublingual 0.4 mg SUBLINGUAL Q5M PRN (Reason: Chest Pain) Qty: 25 3RF pantoprazole [Protonix] 40 mg tablet,delayed release (DR/EC) 40 mg PO BID hydrocodone-acetaminophen 5-325 mg tablet 1 tab PO Q4H PRN PRN (Reason: Pain) 3 Days Qty: 10 0RF ondansetron 4 mg tablet,disintegrating 4 mg PO Q8H PRN PRN (Reason: Nausea) Qty: 10 0RF nystatin 100,000 unit/gram cream 1 applic topical BID ondansetron HCl 8 mg tablet 8 mg PO Q8H PRN PRN (Reason: nausea/vomiting) hydrocodone-acetaminophen 5-325 mg tablet 1 tab PO Q4H PRN PRN (Reason: Pain) 4 Days Qty: 20 0RF furosemide 20 mg tablet 20 mg PO DAILY Qty: 14 0RF potassium chloride 20 mEq tablet extended release 20 meq PO BID Qty: 20 0RF Referrals / Follow Up: Yaw Singh MD [Primary Care Provider] - Disposition Disposition (needs filled in before D/C Order can be placed): [facility] Facility Charges/Coding Visit Charges Inpatient E&M: 57976 Disch Hosp >30min
--- NOTE | 2023-10-25 12:01 | CASEMGMT ---
SW met with patient. Introduced self and role at [facility]. SW let patient know he will be going to [facility] today. SW called patient's and left her a voice mail letting her know patient will be going to [facility] today and someone will call her with a time patient will be leaving. JESÚS completed a 7000 in [employer] system. Plan: d/c to [facility] under skilled level of care on a convalescent stay. Physicians will transport patient via wheelchair. Fidelina HARRISON
[2023-10-25 12:48] LABS: Partial Thromboplast Time 61.9 Seconds (24.1-36.2)
[2023-10-25] MEDS: APIXABAN 5 MG TABLET 10 MG PO (12:56)
--- NOTE | 2023-10-25 13:13 | PCM.PN.REN ---
Subjective Subjective Sitting in chair, family member at bedside. No complaints. Possible discharge to [facility] today. Objective Data Objective Data Vital Signs: Vital Signs Temp Pulse Resp BP Pulse Ox O2 Del Method O2 Flow Rate 97.3 F L 96 20 H 125/72 H 96 Room Air 2 10/25/23 09:16 10/25/23 09:19 10/25/23 09:16 10/25/23 09:16 10/25/23 09:16 10/25/23 09:16 10/23/23 12:42 Oxygen Flow Rate (L/min) 2 Oxygen Delivery Method Room Air Weight: 97.4 kg Body Mass Index (BMI) 31.7 Intake & Output: Intake and Output for Last 24 Hours 10/23/23 10/24/23 10/25/23 23:59 23:59 23:59 Intake Total 323.25 / 803.25 1702.79 / 1702.79 99.47 / 99.47 Output Total 60 / 60 2400 / 2700 300 / 300 Balance 263.25 / 743.25 -697.21 / -997.21 -200.53 / -200.53 Lab / Micro Data 10/24/23 08:30 10/23/23 05:08 Labs: Laboratory Results - last 24 hr 10/24/23 14:40: APTT 78.0 H 10/24/23 21:50: APTT 162.3 H* 10/25/23 06:26: APTT 56.7 H 10/25/23 12:31: APTT 61.9 H Micro: Microbiology 10/17/23 Unknown Fluid - Synovial (joint) Gram Stain - Final 10/17/23 Unknown Fluid - Synovial (joint) Body Fluid Culture - Final No growth in 5 days. 10/17/23 Unknown Fluid - Synovial (joint) Anaerobic Culture - Final No growth in 5 days. 10/17/23 Unknown Fluid - Synovial (joint) Gram Stain - Final 10/17/23 Unknown Fluid - Synovial (joint) Body Fluid Culture - Final No growth in 5 days. 10/17/23 Unknown Fluid - Synovial (joint) Anaerobic Culture - Final No growth in 5 days. 10/17/23 17:34 Blood Culture (Wb) - Left Hand Blood Culture - Final No growth in 5 days. 10/14/23 11:25 Blood Culture (Wb) - Line Draw Blood Culture - Final No growth in 5 days. 10/12/23 16:30 Blood Culture (Wb) - Venous Blood Culture - Final Streptococcus group G 10/12/23 16:30 Blood Culture (Wb) - Venous Bacteria Detection (PCR) - Final Strep not Strep pneumo 10/12/23 16:30 Blood Culture (Wb) - Venous Blood Culture - Final Streptococcus group G 10/12/23 16:41 Urine Catheter - Cantrell Urine Culture - Final Streptococcus group G Physical Exam Narrative Alert and orient x 3, no apparent distress S1, S2, RRR Lung sounds clear Abdomen soft Edema bilateral legs Left IJ tunneled HD catheter dressing clean, dry and intact Assessment & Plan Assessment/Plan (1) Acute kidney injury: PLAN: Impression/Plan: The patient is a 68-year-old male with past history of hypertension, CAD status post CABG, aortic stenosis, esophageal cancer, GERD, and hyperlipidemia. Patient presented to hospital on 10/12/2023 with right flank pain, altered mental status and gross hematuria. Patient was found to have UTI with bloodstream infection with Streptococcus group G. Nephrology is following for dialysis dependent acute kidney injury. Acute kidney injury. Normal baseline creatinine. As recent as 10/05/2023, his creatinine was normal at 1.00 mg/dL. Extensive history of kidney stone. He had a CT scan beginning of September where there were kidney stones with mild hydronephrosis. Repeat CT scan here on admission did not show any hydronephrosis. Essentially anuric since admission. Cantrell removed. Started on dialysis 10/15/2023. Has Streptococcus group G in blood and in the urine bilateral knee effusions s/p aspiration echo done on 10/17: EF 55%, moderate to large sized pericardial effusion versus pericardial tumor (had echo September 2023 EF 56%, no pericardial effusion). CT chest showed hiatal hernia no mass. -Kidney biopsy preliminary showing ATN. Discussed this with patient. No acute indication for [facility] RN today. Next dialysis tomorrow. -Group G strep bacteremia, suspect urinary source. On cefazolin. ID following for antibiotics. Blood cultures negative from 10/13 and 10/16. Synovial fluid no growth. Antibiotic recommendations cefazolin 6 weeks post HD, stop date November 24. -Thrombus right IJ; on Eliquis Probable discharge to rehab center today. Next dialysis will be tomorrow at [facility].
--- NOTE | 2023-10-25 13:31 | PHA.DC_ITS ---
Pharmacy [place] Med Reconciliation Pharmacy Service has performed discharge medication reconciliation for this patient upon transfer to [facility]. The patient's discharge medication list was reviewed for discrepancies and discrepancies were resolved. Medications at Discharge Home Medications aspirin 81 mg chewable tablet 81 mg PO DAILY@0800 HEALTH 01/23/14 atorvastatin 80 mg tablet 80 mg PO QHS CHOLESTEROL #90 tabs 05/15/22 ezetimibe 10 mg tablet 10 mg PO DAILY CHOLESTEROL #90 tabs 05/15/22 cefazolin 2 gram intravenous solution 2 g IV .see below 33 days 10/23/23 acetaminophen 325 mg tablet 650 mg (2 x 325 mg) PO Q6H PRN PRN Pain 1-10 Or Fever >100.7 #0 tabs 10/25/23 apixaban 5 mg tablet (Eliquis) 10 mg (2 x 5 mg) PO BID #0 tabs 10/25/23 melatonin 3 mg tablet 3 mg PO QHS PRN PRN Insomnia #0 tabs 10/25/23 menthol 0.44 %-zinc oxide 20.6 % topical ointment (Calmoseptine) 1 applic topical BID #0 grams 10/25/23 metoprolol tartrate 25 mg tablet 25 mg PO BID #0 tabs 10/25/23 oxycodone 5 mg tablet 2.5 - 5 mg (0.5 - 1 x 5 mg) PO Q4H PRN PRN Pain Score 4-10 2 days #10 tabs 10/25/23 pantoprazole 40 mg tablet,delayed release 40 mg PO BID #0 tabs 10/25/23 polyethylene glycol 3350 17 gram/dose oral powder (Miralax) 17 g PO BID #119 grams 10/25/23 sennosides 8.6 mg-docusate sodium 50 mg tablet (Stimulant Laxative Plus) 2 tab PO BID #0 tabs 10/25/23
--- NOTE | 2023-10-25 13:43 | CASEMGMT ---
Discharge Planning Discharge orders, signed med list, and transport time sent to [facility]. Physicians will transport patient by wheelchair at 5p. Nursing, SW, patient, and his updated. Tata Nieto DC Planning Asst.
--- NOTE | 2023-10-25 14:47 | NURSING ---
called report to the [place] at the [facility]. All questions and concerns answered at this time, notified that pickup time was scheduled for 1700.
[2023-10-25 17:10] VITALS: BP 118/82; PULSE 109; RESP 18; TEMP 36.3; O2SAT 95
== END 2023-10-25 17:45 | disposition skilled nursing facility (03) | DRG 871 ==
LOC: ED 18:19 → PCU 19:00
PROVIDERS: Anesthesiology; Family Medicine; Internal Medicine; Internal Medicine Nephrology; Nurse Practitioner Adult Health; Student in an Organized Health Care Education/Training Program; Surgery; Admitting Provider Internal Medicine; Emergency Provider Emergency Medicine; PCP Family Medicine; Visit Provider Internal Medicine
PROC: 0JH63XZ Insertion of Tunneled Vascular Access Device into Chest Subcutaneous Tissue and Fascia, Percutaneous Approach (ICD-10-PCS; principal; 2023-10-23 12:45)
DX: A40.8 Other streptococcal sepsis (principal); G93.41 Metabolic encephalopathy; N17.0 Acute kidney failure with tubular necrosis; I82.C11 Acute embolism and thrombosis of right internal jugular vein; M00.9 Pyogenic arthritis, unspecified; J90 Pleural effusion, not elsewhere classified; T82.868A Thrombosis due to vascular prosthetic devices, implants and grafts, initial encounter; E87.1 Hypo-osmolality and hyponatremia; T82.838A Hemorrhage due to vascular prosthetic devices, implants and grafts, initial encounter; I25.810 Atherosclerosis of coronary artery bypass graft(s) without angina pectoris; N30.01 Acute cystitis with hematuria; R65.20 Severe sepsis without septic shock; I10 Essential (primary) hypertension; I35.0 Nonrheumatic aortic (valve) stenosis; I25.10 Atherosclerotic heart disease of native coronary artery without angina pectoris; E78.5 Hyperlipidemia, unspecified; K44.9 Diaphragmatic hernia without obstruction or gangrene; K21.9 Gastro-esophageal reflux disease without esophagitis; M25.461 Effusion, right knee; M25.462 Effusion, left knee; Y82.8 Other medical devices associated with adverse incidents; Z79.82 Long term (current) use of aspirin; Z79.891 Long term (current) use of opiate analgesic; Z79.899 Other long term (current) drug therapy; Z95.1 Presence of aortocoronary bypass graft; Z95.2 Presence of prosthetic heart valve; Z95.5 Presence of coronary angioplasty implant and graft
CPT/HCPCS: 36415; 36600; 51702; 70450; 71045; 71250; 73560; 74176; 76000; 77012; 80048; 80053; 80069; 81001; 82436; 82550; 82565; 82570; 82803; 83010; 83605; 83615; 83735; 84100; 84133; 84156; 84300; 84520; 85025; 85027; 85384; 85610; 85730; 86140; 86160; 87040; 87070; 87075; 87077; 87086; 87088; 87149; 87186; 87205; 87340; 88300; 88305; 88346; 88350; 89050; 89051; 89060; 90937; 93005; 93308; 94762; 97110; 97162; 97165; 97530; 97535; 99156; 99283; 99285; J7030; J7040; J7050; J7120; P9047; A4216; C1752; G0257; J2405

== ENCOUNTER 2023-10-28 23:29 | Inpatient (IN) | payer MEDICARE, OTHER, SELFPAY ==
[2023-10-28 23:31] VITALS: BP 173/112; PULSE 103; RESP 36; TEMP 36.9; O2SAT 93; BMI 31.8
--- NOTE | 2023-10-28 23:42 | EKG12_ITS ---
Test Reason : SOB Blood Pressure : / mmHG Vent. Rate : 101 BPM Atrial Rate : 101 BPM P-R Int : 204 ms QRS Dur : 088 ms QT Int : 348 ms P-R-T Axes : 037 019 096 degrees QTc Int : 451 ms Sinus tachycardia Nonspecific T wave abnormality Abnormal ECG Confirmed by RONA MANNING, PATRICK ([id number]), desk editor CYNTHIA JOHN ([id number]) on 10/30/2023 8:32:38 AM Referred By: Confirmed By:PATRICK REA MD
--- NOTE | 2023-10-28 23:42 | RAD_ITS ---
EXAM: XR CHEST, 1 VIEW CLINICAL INDICATION: CP TECHNIQUE: Frontal view of the chest. COMPARISON: Single view chest 10/27/2023 FINDINGS: LUNGS AND PLEURAL SPACES: Large left and moderate right pleural effusions with bilateral lower lobe air space disease. No pneumothorax. HEART: Unremarkable. Cardiac silhouette not enlarged. MEDIASTINUM: Surgical changes of the mediastinum. BONES/JOINTS: Unremarkable. No acute fracture. SOFT TISSUES: Unremarkable. TUBES, LINES AND DEVICES: Left chest central venous catheter. RAD/Chest 1 View (Portable) IMPRESSION: Large left and moderate right pleural effusions with bilateral lower lobe air space disease. Findings may indicate atelectasis or infection. Electronically Signed: Hemanth Haynes MD at 0:28 EDT ,
--- NOTE | 2023-10-28 23:45 | ED.RN ---
patient placed on 2L NC for comfort and tachypnea
[2023-10-28 23:46] VITALS: PULSE 101; RESP 31
[2023-10-28 23:56] LABS: Absolute Lymphocyte Count 0.42 X10^3/uL (0.83-4.51); Absolute Neutrophil Count 7.7 X10^3/uL (2.0-7.7); Basophil# 0.02 X10^3/uL; Basophil% 0.2 % (0-1); Eosinophil# 0.03 X10^3/uL; Eosinophils% 0.3 % (0-5); Hematocrit 28.2 % (40-54); Hemoglobin 9.1 g/dL (13.0-16.5); Lymphocyte # 0.42 X10^3/ul (0.83-4.51); Lymphocyte % 4.8 % (19-41); Mean Corp Hgb Conc 32.3 g/dL (32-36); Mean Corpuscular Hgb 27.4 pg (27.0-32.0); Mean Corpuscular Volume 84.9 fL (80-94); Mean Platelet Vol. 9.8 fl (6.2-12.0); Monocyte# 0.57 X10^3/uL; Monocyte% 6.5 % (0-10); NRBC Flagged by Analyzer 0 % (0-5); Neutrophil # 7.72 X10^3/uL (2.7-7.7); Neutrophil % 87.9 % (47-70); POSITIVE DIFFERENTIAL YES; Platelet Count 198 K/mm3 (150-450); RBC Distribution Width CV 15.8 % (11.6-14.6); RBC Distribution Width SD 48.5 fl (35.1-43.9); Red Blood Count 3.32 M/mm3 (4.6-6.2); White Blood Count 8.8 K/mm3 (4.4-11.0)
[2023-10-29] VITALS (41 sets, daily range): BP systolic 80–245; BP diastolic 77–102; PULSE 85–111; RESP 21–42; TEMP 36.2–36.9; O2SAT 94–100; BMI 30.7; BMI 30.6
--- NOTE | 2023-10-29 | FLU_PTH ---
PATIENT: NICKO ROSALES LOC: [facility] U#:[id number] AGE/SX: 68/M ROOM: [facility] RE10/29/[address]: Dr. Ashley Russell MD : 1955 BED: 1 DIS: 11/05/2023 SPEC #: [id number] RECD: 10/29/23 15:16 STATUS: RICKY GRIFFITH #: [id number] KIM: 10/29/23 00:[address]: Jesse Almanzar DEPT: CYTOLOGY RECD BY: Katrin Morales ENTERED: 10/30/23 09:49 SP TYPE: Fluid OTHR DR: DO Dr. Yaw Jones MD Dr. Jayaprakas Dasari, MD Tissues: Pleural fluid, NOS Procedures: Special Stain Group II Surgery Specimen Level IV Cytospin Fluid HEADER OPERATION: Thoracentesis PRE-OP DIAGNOSIS: Pleural effusion TISSUE SUBMITTED: Thoracentesis for cytology DIAGNOSIS CYTOLOGY Thoracentesis fluid for cytology (cytospin): Negative for malignant cells. AM/mr 10/31/2023 CYTOLOGY STUDY Slides are reviewed. CYTOLOGY GROSS Received is 90 ml of adalberto-cloudy fluid labeled with the patient's name and and designated per the requisition as Thoracentesis. Submitted for cytology preparation including cell block. Mr 10/30/2023 TC:5 CPT: 43647,90935
[2023-10-29 00:24] LABS: Anion Gap 11 (5-15); BUN 79 mg/dL (7-18); BUN/Creat Ratio 9.3 RATIO (10-20); Calcium,Total 7.4 mg/dL (8.5-10.1); Chloride 95 mmol/L (98-107); Creatinine, Serum 8.54 mg/dL (0.70-1.30); EST Glomerular Filtration Rate 7 mL/min (>60); Est Glom Filt Rate - Afr Amer 8 mL/min (>60); Glucose 107 mg/dL (74-106); Sodium Level 131 mmol/L (136-145); Troponin-I HS (w/2H Reflex) 35 pg/mL (3.0-78.0)
--- NOTE | 2023-10-29 01:18 | EDS_ITS ---
HPI History of Present Illness Chief Complaint: Shortness of Breath Informant: patient Onset/Context/Timing Onset: Yesterday Context: gradual Timing: Continuous Quality: Positive for Orthopnea Worsened by: Lying flat Relieved by: Nothing Associated Symptoms rhinorrhea; Negative for cough, post nasal drip, ear pain, fever, sore throat, chills, sweats, clear sputum, white sputum, yellow sputum or green sputum Chest Pain: Positive for Pressure (Heaviness) Narrative Narrative: Patient presents with shortness of breath that began yesterday. Patient states it is gradually getting worse. Patient states his breathing is worse whenever he lays flat. Patient states he is scheduled to start dialysis tomorrow. Patient admits to some rhinorrhea. Patient denies any cough. Patient admits to some heaviness in his chest. Patient denies any fevers or chills. Patient denies any sore throat or rhinorrhea. Patient denies any palpitations. 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 Essential (primary) hypertension Non-rheumatic aortic stenosis Syncope and collapse Hyperlipidemia Atherosclerotic heart disease of [place] coronary artery with other forms of angina pectoris Encounter for long-term current use of high risk medication abnormal stress test Angina pectoris Exertional chest pain URI (upper respiratory infection) Home Medications ?Medication ?Instructions ?Recorded ?Last Taken ?Type aspirin 81 mg chewable tablet 81 mg PO DAILY@0800 HEALTH 01/23/14 10/10/23 History atorvastatin 80 mg tablet 80 mg PO QHS CHOLESTEROL #90 tabs 05/15/22 10/10/23 Rx ezetimibe 10 mg tablet 10 mg PO DAILY CHOLESTEROL #90 tabs 05/15/22 10/10/23 Rx cefazolin 2 gram intravenous 2 g IV .see below 33 days 10/23/23 Unknown Rx solution acetaminophen 325 mg tablet 650 mg (2 x 325 mg) PO Q6H PRN PRN 10/25/23 Unknown Rx Pain 1-10 Or Fever >100.7 #0 tabs apixaban 5 mg tablet (Eliquis) 10 mg (2 x 5 mg) PO BID #0 tabs 10/25/23 Unknown Rx melatonin 3 mg tablet 3 mg PO QHS PRN PRN Insomnia #0 10/25/23 Unknown Rx tabs metoprolol tartrate 25 mg tablet 25 mg PO BID #0 tabs 10/25/23 Unknown Rx pantoprazole 40 mg tablet,delayed 40 mg PO BID #0 tabs 10/25/23 Unknown Rx release polyethylene glycol 3350 17 17 g PO BID #119 grams 10/25/23 Unknown Rx gram/dose oral powder (Miralax) sennosides 8.6 mg-docusate sodium 2 tab PO BID #0 tabs 10/25/23 Unknown Rx 50 mg tablet (Stimulant Laxative Plus) oxycodone 5 mg tablet 5 mg PO Q4H PRN PRN Pain Score 4-10 10/28/23 Unknown History Allergy/AdvReac Type Severity Reaction Status Date / Time No Known Allergies Allergy Verified 10/28/23 23:34 Family History Father Heart disease Myocardial infarction Hypertension Brother Hypertension Sister Heart disease Myocardial infarction Surgical History History of aortic valve replacement (03/03/19) History of coronary artery stent placement (12/31/18) H/O coronary artery bypass surgery (09/18/02) History of tonsillectomy History of hernia repair Social History Smoking Status: Never smoker alcohol intake: never substance use type: does not use caffeine: No what type of physical activity do you participate in: walking frequency: daily ROS ROS ED Constitutional Constitutional ED: Denies chills or fever(s) Eyes Eyes: Denies blurry vision or change in vision ENT ENT ED: Denies rhinorrhea or sore throat Cardiovascular Cardiovascular: Reports chest pain; Denies palpitations Respiratory/Chest Respiratory/Chest: Reports dyspnea; Denies cough Gastrointestinal Gastrointestinal: Denies nausea or vomiting Musculoskeletal Musculoskeletal: Denies back pain or neck pain Integumentary Denies abscess or rash Neurologic Neurologic: Denies headache(s) or weakness Allergic/Immunologic Allergic/Immunologic ED: Denies mouth swelling or urticaria EXAM Physical Exam Const Vital Signs: 10/28/23 23:31 10/28/23 23:35 10/28/23 23:36 Temperature 98.4 F Temperature Source Oral Pulse Rate 103 H Respiratory Rate 36 H Respiratory Effort Short of Breath Short of Breath Blood Pressure 173/112 H Blood Pressure Mean 132 Pulse Ox 93 Oxygen Delivery Method Room Air Room Air Oxygen Flow Rate (L/min) 10/28/23 23:45 10/28/23 23:46 10/29/23 00:00 Temperature Temperature Source Pulse Rate 101 H 99 Respiratory Rate 31 H 30 H Respiratory Effort Blood Pressure 148/94 H Blood Pressure Mean 110 Pulse Ox Oxygen Delivery Method Nasal Cannula Oxygen Flow Rate (L/min) 2 10/29/23 00:15 10/29/23 00:30 10/29/23 00:45 Temperature Temperature Source Pulse Rate 98 99 99 Respiratory Rate 32 H 36 H 34 H Respiratory Effort Blood Pressure 141/98 H 149/97 H 149/98 H Blood Pressure Mean 112 112 113 Pulse Ox Oxygen Delivery Method Oxygen Flow Rate (L/min) 10/29/23 01:00 10/29/23 01:15 10/29/23 01:30 Temperature 98.5 F Temperature Source Oral Pulse Rate 100 96 97 Respiratory Rate 34 H 34 H 42 H Respiratory Effort Blood Pressure 143/102 H 144/99 H 155/88 H Blood Pressure Mean 115 112 110 Pulse Ox 98 Oxygen Delivery Method Nasal Cannula Oxygen Flow Rate (L/min) 2 10/29/23 01:30 10/29/23 01:45 10/29/23 02:00 Temperature Temperature Source Pulse Rate 92 104 H 97 Respiratory Rate 32 H 28 H 37 H Respiratory Effort Blood Pressure 155/88 H 156/95 H Blood Pressure Mean 107 114 Pulse Ox Oxygen Delivery Method Oxygen Flow Rate (L/min) 10/29/23 02:15 10/29/23 02:30 10/29/23 02:45 Temperature Temperature Source Pulse Rate 98 96 97 Respiratory Rate 39 H 36 H 34 H Respiratory Effort Blood Pressure 150/98 H 155/94 H 147/93 H Blood Pressure Mean 114 112 110 Pulse Ox Oxygen Delivery Method Oxygen Flow Rate (L/min) 10/29/23 03:24 10/29/23 03:58 10/29/23 04:00 Temperature 98.5 F Temperature Source Pulse Rate 99 99 97 Respiratory Rate 36 H 36 H Respiratory Effort Blood Pressure 150/94 H 143/95 H 143/95 H Blood Pressure Mean 112 111 Pulse Ox 98 97 Oxygen Delivery Method Room Air Oxygen Flow Rate (L/min) Positive well nourished and well developed General Appearance ED: well developed and NAD HEENT Reports moist mucous membranes Neck supple and no JVD Resp normal respiratory effort Auscultation: diminished lung sounds bilateral lower Cardio regular rate and regular rhythm GI non-tender and non-distended Palpation: soft Neuro oriented x3, CN's II-XII intact bilaterally and no sensory deficits noted [place] Coma Scale: document GCS findings Spontaneous Obeys Commands Oriented 15 Sensorium / Orientation: alert Speech: speech normal Motor Exam: strength 5/5 throughout Psych mental status grossly normal MDM MDM MDM Narrative Medical decision making narrative: Differential diagnosis includes congestive heart failure, cardiac dysrhythmia, cardiac ischemia, pneumonia, and electrolyte abnormality. CBC will be obtained to assess for leukocytosis and anemia. Basic metabolic profile will be obtained to assess for renal function and electrolyte abnormality. High-sensitivity troponin will be obtained to assess for cardiac ischemia. 2-hour repeat high- sensitivity troponin will be obtained to assess for ongoing cardiac ischemia. Chest x-ray will be obtained to assess for pneumonia and congestive heart failure. EKG will be obtained to assess for cardiac dysrhythmia and cardiac ischemia. Lab Data Attestation: I reviewed the patient's lab results. Lab results narrative: CBC was reviewed. There is a mild anemia with a hemoglobin of 9.1 and hematocrit 28.2. Basic metabolic profile was reviewed. Sodium was slightly low at 131. Chloride was slightly low at 95. BUN was elevated at 79 and creatinine was elevated at 8.54. This was mildly increased from previous result. Serum lactate was reviewed and was normal at 0.8. Initial high-sensitivity troponin was reviewed and was normal at 35. 2-hour repeat high-sensitivity troponin was reviewed and was normal at 36. BNP was reviewed and was elevated at 756.4. Labs: Laboratory Results - last 24 hr 10/28/23 10/29/23 23:41 01:45 WBC 8.8 RBC 3.32 L Hgb 9.1 L Hct 28.2 L MCV 84.9 MCH 27.4 MCHC 32.3 RDW Std Deviation 48.5 H RDW Coeff of [place] 15.8 H Plt Count 198 MPV 9.8 Immature Gran % (Auto) 0.300 Neut % (Auto) 87.9 H Lymph % (Auto) 4.8 L [place] % (Auto) 6.5 Eos % (Auto) 0.3 Baso % (Auto) 0.2 Absolute Neuts (auto) 7.7 Absolute Lymphs (auto) 0.42 L Nucleated RBC % 0 Sodium 131 L Potassium 5.0 Chloride 95 L Carbon Dioxide 25.0 Anion Gap 11 BUN 79 H Creatinine 8.54 H* Estim Creat Clear Calc 9.70 Est GFR (MDRD) Af Amer 8 L Est GFR (MDRD) Non-Af 7 L BUN/Creatinine Ratio 9.3 L Glucose 107 H Lactic Acid 0.8 Calcium 7.4 L Troponin I High Sens 35 36 B-Natriuretic Peptide 756.4 H Radiography Chest X-Ray - ED: 1 View, Read by ED Physician, Read by Radiologist, Right Effusion and Left Effusion Diagnostic Testing: Clinical Impression(s) from Imaging Studies Chest X-Ray 10/28/23 23:42 IMPRESSION: Large left and moderate right pleural effusions with bilateral lower lobe air space disease. Findings may indicate atelectasis or infection. Electronically Signed: Hemanth Haynes MD at 0:28 EDT , Portable chest x-rays obtained. There is 1 view. On my independent interpretation, there are moderate to large pleural effusions bilaterally. There is some airspace disease in the lower lobes bilaterally. Radiologist also interpreted the x-rays and agrees. EKG Initial EKG: Interpretation: Sinus Tachycardia (101) and Non-Specific ST Changes Comments: EKG was obtained. On my independent interpretation, it showed a normal sinus tachycardia with first-degree AV block with a rate of 101. MD interval was slightly prolonged at 204 ms. QRS interval was normal at 88 ms. QTc intervals was normal at 451 ms. [place] was normal. There are nonspecific ST- T wave changes. Prior EKG tracings: available for review Prior: Unchanged (10/23/2023) Treatment and Re-Evaluation :: Patient was advised of his findings. Patient states he is not on oxygen at home. Patient was given nitroglycerin paste. Patient states he is not scheduled for dialysis till 11 AM later today. Since the patient does not make any urine, I did not order any Lasix. Patient was given nitroglycerin paste. Case was discussed with the hospitalist. He will admit the patient to his service. Patient understood and was agreeable with the plan. All questions were answered. Discharge Plan Triage Chief Complaint: Shortness of Breath Other Complaint: Chest Pain ED Provider: Nikita Russell Dx/Rx/DC Orders Clinical Impression: Dyspnea, Pleural effusion, Chronic kidney disease (CKD) Prescriptions: No Action atorvastatin 80 mg tablet 80 mg PO QHS Qty: 90 3RF ezetimibe 10 mg tablet 10 mg PO DAILY Qty: 90 3RF aspirin 81 MG tablet,chewable 81 mg PO DAILY@0800 Patient Comments: HEART/BLOOD THINNER cefazolin 2 gram recon soln 2 g IV .see below 33 Days Rx Instructions: stop date 11/25/23. Dx: strep bacteremia. cefazolin iv with dialysis: 2gm on Mon, 2gm on Wed, 3gm on Fri. Weekly bmp and cbc. Fax to [phone]. acetaminophen 325 mg Tablet 650 mg PO Q6H PRN PRN (Reason: Pain 1-10 Or Fever >100.7) Qty: 0 0RF melatonin 3 mg Tablet 3 mg PO QHS PRN PRN (Reason: Insomnia) Qty: 0 0RF metoprolol tartrate 25 mg Tablet 25 mg PO BID Qty: 0 0RF sennosides-docusate sodium [Stimulant Laxative Plus] 8.6-50 mg Tablet 2 tab PO BID Qty: 0 0RF pantoprazole 40 mg Tablet,Delayed Release (Dr/Ec) 40 mg PO BID Qty: 0 0RF polyethylene glycol 3350 [Miralax] 17 gram/dose powder 17 g PO BID Qty: 119 0RF Eliquis 5 mg Tablet 10 mg PO BID Qty: 0 0RF Rx Instructions: two twice a day for 13 doses, then one twice a day thereafter-take for 12 weeks oxycodone 5 mg Tablet 5 mg PO Q4H PRN PRN (Reason: Pain Score 4-10) Primary Care Provider: Yaw Singh Referrals: Yaw Singh MD [Primary Care Provider] - Print Language: Tamazight Disposition Disposition: Acute Care [facility]
[2023-10-29 01:48] LABS: Reflex Troponin-HS? (from REC) Y
[2023-10-29 02:17] LABS: BNP,B-Type NATRIURETIC PEPTIDE 756.4 pg/mL (0-100)
[2023-10-29 02:19] LABS: Troponin-I HS 36 pg/mL (3.0-78.0)
[2023-10-29 02:25] LABS: Lactic Acid 0.8 mmol/L (0.4-1.9)
[2023-10-29] MEDS: Nitroglycerin Oint 1 INCH PACKET TD (03:58)
--- NOTE | 2023-10-29 04:59 | PCM.HP.STD ---
[facility] - General General Date of Admission: 10/29/23 Date of Service: 10/29/23 Chief Complaint: SOB. [facility] Narrative NICKO ROSALES, is a 68 M with a past medical history of essential hypertension, hyperlipidemia, obesity; with BMI of 31.8 this admission, CAD; s/p CABG x 3 (2002) with subsequent stents (), history of nonrheumatic Aortic Stenosis; s/p AVR (2018), history of esophageal adenocarcinoma; s/p Roger esophageal resection and chemotherapy (2020), ESRD on HD; (-W-) followed by Dr. 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 every 4 hours as needed and recent admission here from October 12, 2023 to October 25, 2023 with a chief complaint of altered mental status and Right flank/low back pain with laboratory evidence of acute renal failure (attributed to ATN), thrombocytopenia of 26 K present on admission, altered mental status and suspected sepsis attributed to acute cystitis from Streptococcus evaluated formally by Dr. Mann of infectious disease with patient discharged on IV Ancef who re-presents to [facility] ER complaining of shortness of breath. Mr. Rosales reports his symptoms began yesterday with dyspnea on exertion that progressed to shortness of breath at rest rapidly. He states he did not know that he needed to be under fluid restriction even though he is an uric and on dialysis but he noticed the more he drank the more short of breath he became along with bilateral 2-3+ LE edema. He noted that lying flat made it worse and nothing seems to make it better. He admits to a sensation of heaviness in his chest and mild runny nose but denies related fever, chills, sore throat, diarrhea, constipation, heart racing or palpitations. He states that he has dialysis scheduled for October 29, 2023 at 11:[address] Greenberg but his shortness of breath became so severe he could not wait until his appointment so he decided to come in to the ER for further evaluation and treatment. The history was augmented by the patient's and daughter who were also both present at the bedside and they were both concerned because he is still not able to walk and they asked if his kidneys could recover and then their questions were answered to the best of my ability. In the ER he was noted to have CXR evidence of volume overload with enlarging bilateral pleural effusions; Large on Left and Moderate on Right with bilateral airspace disease in the lower lobes with a confirmatory BNP of 756.4 pg/mL present on admission consistent with suspected AE CHF due Inadvertent Noncompliance with Fluid Restriction complicated by clinical evidence of Acute Respiratory Insufficiency with a corresponding respiratory rate ~36 bpm present on admission in the setting of ESRD on HD (with anuria) with elevated serum creatinine of 8.54 mg/dL present on admission and he was then admitted to the PCU for ongoing care for a stay that is expected to extend beyond 2 midnights. [facility] Medical History Adenocarcinoma of esophagus LEELA (acute kidney injury) Non-smoker Esophageal carcinoma Atherosclerosis of coronary artery of [place] heart without angina pectoris 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 Essential (primary) hypertension Non-rheumatic aortic stenosis Syncope and collapse Hyperlipidemia Atherosclerotic heart disease of [place] coronary artery with other forms of angina pectoris Encounter for long-term current use of high risk medication abnormal stress test Angina pectoris Exertional chest pain URI (upper respiratory infection) Home Medications ?Medication ?Instructions ?Recorded ?Last Taken ?Type aspirin 81 mg chewable tablet 81 mg PO DAILY@0800 HEALTH 01/23/14 10/10/23 History atorvastatin 80 mg tablet 80 mg PO QHS CHOLESTEROL #90 tabs 05/15/22 10/10/23 Rx ezetimibe 10 mg tablet 10 mg PO DAILY CHOLESTEROL #90 tabs 05/15/22 10/10/23 Rx cefazolin 2 gram intravenous 2 g IV .see below 33 days 10/23/23 Unknown Rx solution acetaminophen 325 mg tablet 650 mg (2 x 325 mg) PO Q6H PRN PRN 10/25/23 Unknown Rx Pain 1-10 Or Fever >100.7 #0 tabs apixaban 5 mg tablet (Eliquis) 10 mg (2 x 5 mg) PO BID #0 tabs 10/25/23 Unknown Rx melatonin 3 mg tablet 3 mg PO QHS PRN PRN Insomnia #0 10/25/23 Unknown Rx tabs metoprolol tartrate 25 mg tablet 25 mg PO BID #0 tabs 10/25/23 Unknown Rx pantoprazole 40 mg tablet,delayed 40 mg PO BID #0 tabs 10/25/23 Unknown Rx release polyethylene glycol 3350 17 17 g PO BID #119 grams 10/25/23 Unknown Rx gram/dose oral powder (Miralax) sennosides 8.6 mg-docusate sodium 2 tab PO BID #0 tabs 10/25/23 Unknown Rx 50 mg tablet (Stimulant Laxative Plus) oxycodone 5 mg tablet 5 mg PO Q4H PRN PRN Pain Score 4-10 10/28/23 Unknown History Allergy/AdvReac Type Severity Reaction Status Date / Time No Known Allergies Allergy Verified 10/28/23 23:34 Family History Father Heart disease Myocardial infarction Hypertension Brother Hypertension Sister Heart disease Myocardial infarction Surgical History History of aortic valve replacement (03/03/19) History of coronary artery stent placement (12/31/18) H/O coronary artery bypass surgery (09/18/02) History of tonsillectomy History of hernia repair Social History Smoking Status: Never smoker alcohol intake: never substance use type: does not use caffeine: No what type of physical activity do you participate in: walking frequency: daily ROS ROS Narrative Review of systems: Constitutional: Patient denies fever or chills. Eyes: Patient denies changes in vision or discharge from eyes. ENT: Patient denies significant runny nose, sore throat or ear pain. CV: Patient admits to a sensation of heaviness in his chest but denies palpitations or heart racing. Resp: Patient admits to TRIPATHI that progressed to SOB at rest made worse by lying flat. He denies cough. GI: Patient denies nausea, vomiting, diarrhea or constipation. : Patient is completely anuric. MSK: Patient denies arthralgias or myalgias. Skin: Patient denies abscess, rash or jaundice. Psych: Patient denies symptoms of uncontrolled depression or anxiety. Neuro: Patient denies headache, paresthesias or focal neurologic deficits. Allergy: Patient denies lip swelling, tongue swelling or urticaria. Hematology :Patient denies easy bleeding or easy bruisability. Endocrinology: Patient denies polyuria, polydipsia or polyphagia. 14 point ROS otherwise negative except for positives noted above. Vital Signs Vital Signs Vital Signs: 10/28/23 23:31 10/28/23 23:35 10/28/23 23:36 Temperature 98.4 F Temperature Source Oral Pulse Rate 103 H Respiratory Rate 36 H Respiratory Effort Short of Breath Short of Breath Blood Pressure 173/112 H Blood Pressure Mean 132 Pulse Ox 93 Oxygen Delivery Method Room Air Room Air Oxygen Flow Rate (L/min) 10/28/23 23:45 10/28/23 23:46 10/29/23 00:00 Temperature Temperature Source Pulse Rate 101 H 99 Respiratory Rate 31 H 30 H Respiratory Effort Blood Pressure 148/94 H Blood Pressure Mean 110 Pulse Ox Oxygen Delivery Method Nasal Cannula Oxygen Flow Rate (L/min) 2 10/29/23 00:15 10/29/23 00:30 10/29/23 00:45 Temperature Temperature Source Pulse Rate 98 99 99 Respiratory Rate 32 H 36 H 34 H Respiratory Effort Blood Pressure 141/98 H 149/97 H 149/98 H Blood Pressure Mean 112 112 113 Pulse Ox Oxygen Delivery Method Oxygen Flow Rate (L/min) 10/29/23 01:00 10/29/23 01:15 10/29/23 01:30 Temperature 98.5 F Temperature Source Oral Pulse Rate 100 96 97 Respiratory Rate 34 H 34 H 42 H Respiratory Effort Blood Pressure 143/102 H 144/99 H 155/88 H Blood Pressure Mean 115 112 110 Pulse Ox 98 Oxygen Delivery Method Nasal Cannula Oxygen Flow Rate (L/min) 2 10/29/23 01:30 10/29/23 01:45 10/29/23 02:00 Temperature Temperature Source Pulse Rate 92 104 H 97 Respiratory Rate 32 H 28 H 37 H Respiratory Effort Blood Pressure 155/88 H 156/95 H Blood Pressure Mean 107 114 Pulse Ox Oxygen Delivery Method Oxygen Flow Rate (L/min) 10/29/23 02:15 10/29/23 02:30 10/29/23 02:45 Temperature Temperature Source Pulse Rate 98 96 97 Respiratory Rate 39 H 36 H 34 H Respiratory Effort Blood Pressure 150/98 H 155/94 H 147/93 H Blood Pressure Mean 114 112 110 Pulse Ox Oxygen Delivery Method Oxygen Flow Rate (L/min) 10/29/23 03:24 10/29/23 03:58 10/29/23 04:00 Temperature 98.5 F Temperature Source Pulse Rate 99 99 97 Respiratory Rate 36 H 36 H Respiratory Effort Blood Pressure 150/94 H 143/95 H 143/95 H Blood Pressure Mean 112 111 Pulse Ox 98 97 Oxygen Delivery Method Room Air Oxygen Flow Rate (L/min) Weight Weight: 221 lb 9.033 oz Body Mass Index (BMI) 31.8 Physical Exam Const alert, oriented x3, average body habitus and healthy appearing Constitutional Narrative: [id number] labored breathing noted at rest. General Appearance: cooperative HEENT normocephalic, head/scalp atraumatic, hearing grossly normal bilaterally and moist oral mucous membranes Eyes PERRL and EOMs intact bilaterally Neck no lymphadenopathy and supple Resp Resp Narrative: Decreased breath sounds at bases with rales (L>R). Auscultation: rales Cardio regular rate and regular rhythm GI normal to inspection, nondistended, normoactive bowel sounds, soft to palpation, non-tender and non-distended Extremity Extremity Narrative: 2-3+ bilateral LE pitting edema up to thigh. Skin Skin Narrative: Patient has a ~2 cm circular area of reddish discoloration on his Left forearm that appear to be a resolving hematoma. Neuro oriented x3, CN's II-XII intact bilaterally, moves all extremities and no focal motor deficits Sensorium / Orientation: awake, alert, oriented to person, oriented to place and oriented to time Speech: speech normal Psych affect normal Results Lab / Micro Data 10/28/23 23:41 10/28/23 23:41 Labs: Laboratory Results - last 24 hr 10/28/23 23:41: WBC 8.8, RBC 3.32 L, Hgb 9.1 L, Hct 28.2 L, MCV 84.9, MCH 27.4, MCHC 32.3, RDW Std Deviation 48.5 H, RDW Coeff of Marcos 15.8 H, Plt Count 198, MPV 9.8, Immature Gran % (Auto) 0.300, Neut % (Auto) 87.9 H, Lymph % (Auto) 4.8 L, [place] % (Auto) 6.5, Eos % (Auto) 0.3, Baso % (Auto) 0.2, Absolute Neuts (auto) 7.7, Absolute Lymphs (auto) 0.42 L, Nucleated RBC % 0, Sodium 131 L, Potassium 5.0, Chloride 95 L, Carbon Dioxide 25.0, Anion Gap 11, BUN 79 H, Creatinine 8.54 H*, Estim Creat Clear Calc 9.70, Est GFR (MDRD) Af Amer 8 L, Est GFR (MDRD) Non-Af 7 L, BUN/Creatinine Ratio 9.3 L, Glucose 107 H, Calcium 7.4 L, Troponin I High Sens 35 10/29/23 01:45: Lactic Acid 0.8, Troponin I High Sens 36, B-Natriuretic Peptide 756.4 H Imaging Radiology Impression Chest X-Ray 10/28/23 23:42 IMPRESSION: Large left and moderate right pleural effusions with bilateral lower lobe air space disease. Findings may indicate atelectasis or infection. Electronically Signed: Hemanth Haynes MD at 0:28 EDT , Assessment & Plan Assessment/Plan (1) Acute exacerbation of chronic heart failure: (2) Medical non-compliance: (3) Acute respiratory insufficiency: (4) Pleural effusion: (5) ESRD (end stage renal disease) on dialysis: (6) Thrombus of venous dialysis catheter: QUALIFIERS: Encounter type: sequela Qualified Code(s): T82.868S - Thrombosis due to vascular prosthetic devices, implants and grafts, sequela (7) Atherosclerosis of coronary artery of [place] heart without angina pectoris: QUALIFIERS: Coronary Disease-Associated Artery/Lesion type: [place] artery Qualified Code(s): I25.10 - Atherosclerotic heart disease of [place] coronary artery without angina pectoris (8) Adenocarcinoma of esophagus: PLAN: Plan 1. AE of chronic diastolic CHF; with preserved LVEF due Inadvertent Noncompliance with Fluid Restriction with CXR evidence of volume overload with enlarging [id number] bilateral pleural effusions; Large on Left and Moderate on Right with bilateral airspace disease in the lower lobes with 2-3+ bilateral LE pitting edema and confirmatory BNP of 756.4 pg/mL present on admission - Admit to PCU under observation status so the patient can undergo HD ENRIQUETA. We will consult Dr. Greenberg of nephrology to see this patient who is previously known to him with help appreciated in advance. Give Tylenol prn for [id number] (level 1-5/10) pain or fever. Continue Oxycodone prn for severe (level 6-10/10) pain. Give Zofran IV prn nausea. 2. Acute Respiratory Insufficiency due to #1 - Wean supplemental oxygen as tolerated after HD. 3. ESRD on HD; (M-W-) followed by Dr. Greenberg with patient anuric with serum creatinine of 8.54 mg/dL present on admission complicating #1 & #2 - Patient was carefully educated on the need for a very strict fluid restriction to prevent serial readmission. Continue HD as previous. 4. History of Right IJ thrombus secondary to temporary dialysis catheter; on Eliquis adding to the complexity of #1 - #3 - Resume Eliquis as previous. 5. Recent admission here from October 12, 2023 to October 25, 2023 with a chief complaint of altered mental status and Right flank/low back pain with laboratory evidence of acute renal failure (attributed to ATN), thrombocytopenia of 26 K present on admission, altered mental status and suspected sepsis attributed to acute cystitis from Streptococcus evaluated formally by Dr. Mann of infectious disease with patient discharged on IV Ancef compounding the pathologic impact of #1 -#4 - Noted. Continue IV Ancef as prescribed until patient completes course. 6. CAD; s/p CABG x 3 (2002) with subsequent stents () - Noted. Home regimen to be resumed as previous. 7. History of nonrheumatic Aortic Stenosis; s/p AVR (2018) - Stable. 8. History of esophageal adenocarcinoma; s/p Roger esophageal resection and chemotherapy (2020) 9. Essential hypertension - Continue current treatment plan. 10. Hyperlipidemia - Resume statin. 11. Obesity; with BMI of 31.8 this admission - Weight loss will be recommended. This is adding to the complexity of his case and hampering his recovery. 12. History of syncope - Noted. 13. History of hernia; s/p repair - Noted. 14. GERD - Continue PPI BID. 15. Osteoarthritis; with chronic pain on oxycodone 5 mg p.o. every 4 hours as needed - Resume as previous for severe (level 6-10/10) pain. 16. DVT prophylaxis - Patient is already on Eliquis for #4 which will be continued. Total time: Approximately 85 minutes. Charges/Coding Visit Charges OBSV E&M: 42312 Observ/hosp same date L2
[2023-10-29] MEDS: Aspirin 81 MG TAB.CHEW PO (08:00)
[2023-10-29] MEDS: Ezetimibe 10 MG Tablet PO (08:00)
[2023-10-29] MEDS: Pantoprazole Sodium 40 MG Tablet PO ×2 (08:01→21:37)
[2023-10-29] MEDS: Senna/Docusate Sodium 1 Tablet 2 TABLET PO ×2 (08:01→21:37)
[2023-10-29] MEDS: Metoprolol Tartrate 25 MG Tablet PO ×2 (08:01→21:37)
[2023-10-29] MEDS: Polyethylene Glycol 3350 17 GM PACKET PO ×2 (08:01→21:37)
[2023-10-29] MEDS: Heparin 10,000 UNITS/10 ML Vial IV (10:02)
[2023-10-29] MEDS: 0.9% Normal Saline 1,000 ML IV.SOLN. 1000 ML OPERA.SITE (10:02)
[2023-10-29] MEDS: PureFlow B 2K Dialysis Soln 1 BAG 6 BAG PF (10:02)
[2023-10-29] MEDS: 0.9% Saline Lock 10 ML Syringe IV ×2 (10:04→15:51)
--- NOTE | 2023-10-29 10:25 | CT_ITS ---
STUDY: CT CHEST WITHOUT CONTRAST REASON FOR EXAM: Male, 68 years old. Hypoxia RADIATION DOSAGE (If Supplied By Facility): CTDIvol = ( 18.01 ) mGy, DLP = ( 718.88 ) mGycm TECHNIQUE: Transaxial imaging was performed without the administration of intravenous contrast material. Multiplanar coronal and sagittal images were reformatted. Individualized dose optimization techniques were used for this CT. COMPARISON: Comparison is made with prior study dated October 18, 2023. FINDINGS: CHEST The lungs are normal. Moderate degree of bilateral pleural effusions with bibasilar atelectasis more prominent on the left side. Loculated effusion is seen in the right major fissure. Sternal cerclage wires are present from a prior sternotomy. The patient is status post aortic valve replacement. There are calcifications of the coronary arteries. Normal mediastinum. Calcified right infrahilar lymph nodes. Normal unenhanced pulmonary arteries. There is atherosclerotic calcification of the aortic arch with tortuosity and elongation of the aortic arch and descending thoracic aorta. There are multi-level degenerative changes of the thoracic spine. Healed right rib fractures. The patient is status post gastric pull-through procedure with the stomach in the chest. Sludge or small gallstones are seen along the dependent portion of the gallbladder wall. CT/Chest without Contrast IMPRESSION: There is been a progression in the bilateral pleural effusions left greater than right with loculation in the right major fissure. Bibasilar compressive atelectasis. Status post gastric pull-through procedure. Electronically Signed: Nino Wood MD at 11:20 EDT ,
[2023-10-29 13:25] LABS: International Normalized Ratio 3.3; Prothrombin Time (Protime)PT. 33.2 SECONDS (11.7-14.9)
[2023-10-29 13:26] LABS: Partial Thromboplast Time 45.5 Seconds (24.1-36.2)
[2023-10-29 14:03] LABS: ALB/GLOB Ratio 0.3 RATIO (0.9-2.4); Globulin 4.7 g/dL (2.2-4.2); LDH 275 U/L (87-241); Protein, Total 6.2 g/dL (6.4-8.2)
--- NOTE | 2023-10-29 14:30 | PCM.HOSP.N ---
Hospitalist Note Patient was seen and examined briefly today, dialysis was attempted on the patient but he became dyspneic and dialysis had to be stopped. I performed a CT scan of the chest which showed bilateral pleural effusions left more than right. I ordered an ultrasound-guided left thoracentesis today, fluid will be analyzed. Patient is currently on nasal cannula oxygen.
[2023-10-29] MEDS: Lidocaine 2% (20 ml mdv) 20 ML Vial INFILT (14:48)
--- NOTE | 2023-10-29 15:02 | RAD_ITS ---
STUDY: X-RAY CHEST REASON FOR EXAM: Male, 68 years old. Post thoracentesis TECHNIQUE: AP inspiration and expiration views. COMPARISON: Comparison is made with prior study dated October 28, 2023. FINDINGS: The patient is status post left thoracentesis. No evidence of pneumothorax. Residual bilateral pleural effusions with bibasilar atelectasis persists. RAD/Chest Insp/Exp 2 View IMPRESSION: No evidence of pneumothorax following the left thoracentesis. Electronically Signed: Nino Wood MD at 15:22 EDT ,
--- NOTE | 2023-10-29 15:07 | PCM.OP.PRO ---
Procedure Report Date of Procedure: 10/29/23 Assessment & Plan Assessment/Plan (1) Pleural effusion: PLAN: PROCEDURE: Ultrasound Guided Thoracentesis ORDERING PROVIDER: Dr. Almanzar INDICATION: Male, 68 years old. Bilateral pleural effusions. PROVIDER: AVINASH Chandler PROCEDURE: The risks, benefits, and alternatives to the procedure were explained to the patient. The specific risks of bleeding, infection, and pneumothorax requiring chest tube insertion were discussed and accepted. Written informed consent was obtained. The patient was placed in the sitting, upright position. Ultrasonographic evaluation of the bilateral lower pleural spaces was carried out. An adequate pocket was identified in the left lower pleural space.The overlying skin was prepped and draped in sterile fashion. 2% lidocaine was administered subcutaneously for local anesthesia. Under ultrasound guidance, a 5-Ugandan 7 cm thoracentesis needle/catheter system was advanced into the left posterior lower pleural fluid collection. Only a small amount of pleural fluid was able to be drained using this catheter. Therefore, a second 5 [place] 10 cm thoracentesis needle catheter system was advanced into the left lower pleural fluid collection. The patient tolerated this well. 1620 ml of clear adalberto colored fluid was drained. The catheter was removed, and a sterile dressing was applied. The patient tolerated the procedure well. A chest x-ray was ordered. IMPRESSION: Successful ultrasound-guided thoracentesis of left pleural effusion. Procedures Radiology Radiology US Procedures: [id number] Thoracentesis
--- NOTE | 2023-10-29 15:15 | PCM.CONS.R ---
Assessment & Plan Assessment/Plan (1) Acute kidney injury: PLAN: Baseline creatinine prior to previous admission was normal. He presented with Streptococcus group G bacteremia. Kidney biopsy was consistent with ATN, no evidence of postinfectious glomerulonephritis. Has been on dialysis since last admission. Early this morning dialysis was attempted. Became significantly tachypneic with dialysis. I switched the dialysis to ultrafiltration only but did not help much. Became progressively tachypneic hence dialysis was stopped. Subsequent CT chest shows massive pleural effusions. Discussed with hospitalist. Possible pleural tap. He is on Eliquis for recent history of right IJ thrombosis which is provoked by a dialysis catheter. We will attempt dialysis tomorrow, possibly start with UF only then switch to hemodialysis. Recent bacteremia. Supposed to be on cefazolin with a stop date of 11/25/2023. Discussed with hospitalist, this will be resumed Anasarca/fluid overload/pleural effusions. Will attempt removal with dialysis. I will also add high-dose diuretics to see if it helps. Thrombocytopenia, resolved HPI Consult Data Date of Consult: 10/29/23 HPI Narrative Reason for Consultation: LEELA for HD HPI Narrative: NICKO ROSALES, is a 68 M who presents to the hospital with dyspnea. nephrology on consultation in view of LEELA on HD. presented with LEELA, proteinuria. blood culture was Growing Streptococcus group G. He was further investigated by infectious disease service. Had a knee pain, status post tap by orthopedics. RICKY could not be done in view of history of esophageal cancer surgery. Initial echocardiogram showed possible cardiac mass but CT chest did not show any mass. He was discharged to a rehab with IV antibiotics, cefazolin, stop date 11/25/2023. Came back with shortness of breath. He was supposed to go to dialysis today as outpatient. Overall significantly edematous. Not much urine output. Appears somewhat tachypneic. Initial thrombocytopenia resolved. Kidney biopsy showed mostly ATN, complements were normal, no evidence of post strep glomerulonephritis. [facility] Medical History (Updated 10/29/23 @ 15:[address] Gaudencio Greenberg MD) Acute kidney injury Adenocarcinoma of esophagus LEELA (acute kidney injury) Non-smoker Esophageal carcinoma Atherosclerosis of coronary artery of [place] heart without angina pectoris 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 Essential (primary) hypertension Non-rheumatic aortic stenosis Syncope and collapse Hyperlipidemia Atherosclerotic heart disease of [place] coronary artery with other forms of angina pectoris Encounter for long-term current use of high risk medication abnormal stress test Angina pectoris Exertional chest pain URI (upper respiratory infection) Home Medications ?Medication ?Instructions ?Recorded ?Last Taken ?Type aspirin 81 mg chewable tablet 81 mg PO DAILY@0800 HEALTH 01/23/14 10/10/23 History atorvastatin 80 mg tablet 80 mg PO QHS CHOLESTEROL #90 tabs 05/15/22 10/10/23 Rx ezetimibe 10 mg tablet 10 mg PO DAILY CHOLESTEROL #90 tabs 05/15/22 10/10/23 Rx cefazolin 2 gram intravenous 2 g IV .see below 33 days 10/23/23 Unknown Rx solution acetaminophen 325 mg tablet 650 mg (2 x 325 mg) PO Q6H PRN PRN 10/25/23 Unknown Rx Pain 1-10 Or Fever >100.7 #0 tabs apixaban 5 mg tablet (Eliquis) 10 mg (2 x 5 mg) PO BID #0 tabs 10/25/23 Unknown Rx melatonin 3 mg tablet 3 mg PO QHS PRN PRN Insomnia #0 10/25/23 Unknown Rx tabs metoprolol tartrate 25 mg tablet 25 mg PO BID #0 tabs 10/25/23 Unknown Rx pantoprazole 40 mg tablet,delayed 40 mg PO BID #0 tabs 10/25/23 Unknown Rx release polyethylene glycol 3350 17 17 g PO BID #119 grams 10/25/23 Unknown Rx gram/dose oral powder (Miralax) sennosides 8.6 mg-docusate sodium 2 tab PO BID #0 tabs 10/25/23 Unknown Rx 50 mg tablet (Stimulant Laxative Plus) oxycodone 5 mg tablet 5 mg PO Q4H PRN PRN Pain Score 4-10 10/28/23 Unknown History Allergy/AdvReac Type Severity Reaction Status Date / Time No Known Allergies Allergy Verified 10/28/23 23:34 Family History Father Heart disease Myocardial infarction Hypertension Brother Hypertension Sister Heart disease Myocardial infarction Surgical History History of aortic valve replacement (03/03/19) History of coronary artery stent placement (12/31/18) H/O coronary artery bypass surgery (09/18/02) History of tonsillectomy History of hernia repair Social History Smoking Status: Never smoker alcohol intake: never substance use type: does not use caffeine: No what type of physical activity do you participate in: walking frequency: daily ROS ROS Narrative appears dyspneic Physical Exam Narrative Alert awake oriented x 3 no obvious distress no pallor no icterus no JVD s1s2 no murmurs lungs clear abdomen soft no organomegaly +++ edema no cyanosis Lab / Micro Data 10/28/23 23:41 10/28/23 23:41 Labs: Laboratory Results - last 24 hr 10/28/23 23:41: WBC 8.8, RBC 3.32 L, Hgb 9.1 L, Hct 28.2 L, MCV 84.9, MCH 27.4, MCHC 32.3, RDW Std Deviation 48.5 H, RDW Coeff of Marcos 15.8 H, Plt Count 198, MPV 9.8, Immature Gran % (Auto) 0.300, Neut % (Auto) 87.9 H, Lymph % (Auto) 4.8 L, [place] % (Auto) 6.5, Eos % (Auto) 0.3, Baso % (Auto) 0.2, Absolute Neuts (auto) 7.7, Absolute Lymphs (auto) 0.42 L, Nucleated RBC % 0, Sodium 131 L, Potassium 5.0, Chloride 95 L, Carbon Dioxide 25.0, Anion Gap 11, BUN 79 H, Creatinine 8.54 H*, Estim Creat Clear Calc 9.70, Est GFR (MDRD) Af Amer 8 L, Est GFR (MDRD) Non-Af 7 L, BUN/Creatinine Ratio 9.3 L, Glucose 107 H, Calcium 7.4 L, Troponin I High Sens 35 10/29/23 01:45: Lactic Acid 0.8, Troponin I High Sens 36, B-Natriuretic Peptide 756.4 H 10/29/23 13:07: PT 33.2 H, INR 3.3, APTT 45.5 H, Lactate Dehydrogenase 275 H, Total Protein 6.2 L, Globulin 4.7 H, Albumin/Globulin Ratio 0.3 L Imaging Radiology Impression Chest X-Ray 10/28/23 23:42 IMPRESSION: Large left and moderate right pleural effusions with bilateral lower lobe air space disease. Findings may indicate atelectasis or infection. Electronically Signed: Hemanth Haynes MD at 0:28 EDT , Chest CT 10/29/23 10:25 IMPRESSION: There is been a progression in the bilateral pleural effusions left greater than right with loculation in the right major fissure. Bibasilar compressive atelectasis. Status post gastric pull-through procedure. Electronically Signed: Nino Wood MD at 11:20 EDT ,
[2023-10-29] MEDS: Cefazolin 2 GM in 0.9% Normal Saline (100mL Bag) 100 ML IV (15:51)
[2023-10-29 16:26] LABS: Glucose, Body Fluid 92 mg/dL (40-70); LDH,Body Fluid 164 Units/L (Not Establ.); Protein, Body Fluid 3.1 g/dL (Not Establ.)
[2023-10-29 16:32] LABS: Cytology, Body Fluid / CSF SEE PATHOLOGY REPORT
[2023-10-29 17:46] LABS: Auto B Fluid Analyzer BKGD Ct COUNTS W/IN LIMITS (W/IN LIMITS)
[2023-10-29 17:47] LABS: Appearance/Body Fluid SL CLDY; Body Fluid Total Cells Counted 0.001 10^3/ul; Color/Body Fluid YELLOW; Red Cell Count/Body Fluid 16 /mm3; Source- Body Fluid THORACENTESIS; White Blood Count/Body Fluid 0.001 10^3/uL
[2023-10-29 17:48] LABS: Body Fluid Polynuclear WBC # 0.001 10^3/uL; Body Fluid QC Type(s) BF2Q
[2023-10-29] MEDS: Atorvastatin Calcium 80 MG Tablet PO (21:36)
[2023-10-30] VITALS (29 sets, daily range): BP systolic 94–300; BP diastolic 50–82; PULSE 83–107; RESP 16–31; TEMP 36.1–37.3; O2SAT 91–100; BMI 30.7; BMI 29.7
--- NOTE | 2023-10-30 07:23 | VDUE_ITS ---
Reason For Study: ESRD Right Lower Arm Left Arm Distal Radial artery diameter 21.4 x 2.4 mm. Left Brachial artery diameter 4.2 x 4.6 mm. Proximal Radial artery waveform is Left Brachial artery waveform is triphasic . triphasic . Lateral Brachial vein diameter 4.4 x 3.7 mm. Right Arm Medial Brachial vein diameter 1.6 x 1.9 mm. Right Brachial artery diameter 4.8 x 5.0 mm. Quality Coordinator Vein is present. Right Brachial artery waveform is Quality Coordinator Vein measures 2..4 mm. triphasic . Cephalic Vein at proximal upper arm measures Cephalic Vein at proximal upper arm measures 1.4 x 1.5 mm. 0.8 x 0.8 mm. Cephalic vein at proximal upper arm depth Cephalic Vein at mid upper arm measures 0.8 measures 10.3 mm. x 0.8 mm. Cephalic Vein at mid upper arm measures 1.1 Cephalic Vein distal upper arm measures 1.9 x 1.3 mm. x 2.4 mm. Cephalic vein at mid upper arm depth Cephalic Vein proximal forearm measures 3.4 measures 7.4 mm. x 3.5 mm. Cephalic Vein distal upper arm measures 1.6 Cephalic Vein at mid forearm measures 1.7 x x 2.0 mm. 1.8 mm. Cephalic vein at distal upper arm depth Cephalic Vein at distal forearm measures 0.8 measures 3.7 mm. x 0.9 mm. Cephalic Vein proximal forearm measures 3.6 Proximal Basilic vein measures 3.6 x 3.2 mm. x 4.9 mm. Proximal Basilic vein depth measures 3.4 x Cephalic Vein at mid forearm measures 3.6 x 3.4 mm. 5.0 mm. Mid Basilic vein measures 1.4 x 1.3 mm. Cephalic Vein at distal forearm measures 1.9 x 2.7 mm. Proximal Basilic vein measures 3.2 x 2.8 mm. Proximal Basilic vein depth measures 17.4 mm. Mid Basilic vein measures 3.5 x 3.7 mm. Mid Basilic vein depth measures 13.9 mm. Distal Basilic vein measures 3.1 x 3.7 mm. Distal Basilic vein depth measures 14.2 mm. Left Lower Arm Proximal Radial artery diameter 1.8 x 1.9 mm. Proximal Radial artery waveform is triphasic . Proximal Lateral Radial vein diameter 0.7 x 1.1 mm. Proximal Medial Radial vein diameter 1.6 x 1.7 mm. Distal Radial artery diameter 2.1 x 3.0 mm. Distal Lateral Radial vein diameter 0.5 x 1.0 mm. Distal Medial Radial vein diameter 0.7 x 1.0 mm. Proximal Ulnar artery diameter 3.3 x 3.8 mm. Proximal Ulnar artery waveform is triphasic . Proximal Lateral Ulnar vein diameter 1.4 x 1.9 mm. Proximal Medial Ulnar vein diameter 2.2 x 2.2 mm. Distal Ulnar artery diameter 1.2 x 1.0 mm. Distal Lateral Ulnar vein diameter 0.6 x 0.7 mm. Distal Medial Ulnar vein diameter 0.7 x 0.8 mm. VL/Dialysis Vein Map PRE-OP BILAT Interpretation Summary Bilateral upper extremity veins patent with measurements above. Bilateral upper extremity arteries patent with normal waveforms and measurement s above. Ordering Physician: Gaudencio Greenberg Referring Physician: Yaw Singh Performed By: Di Appiah RVT ???
--- NOTE | 2023-10-30 09:56 | PN.HOSP_ITS ---
Reason for Visit Reason for Visit: Diagnoses Malignant neoplasm of esophagus, unspecified (10/29/23) Atherosclerotic heart disease of [place] coronary artery without angina pectoris (10/29/23) Heart failure, unspecified (10/29/23) Pleural effusion, not elsewhere classified (10/29/23) Acute kidney failure, unspecified (10/29/23) End stage renal disease (10/29/23) Other abnormalities of breathing (10/29/23) Thrombosis due to vascular prosthetic devices, implants and grafts, sequela (10/29/23) Patient's noncompliance with other medical treatment and regimen due to unspecified reason (10/29/23) Dependence on renal dialysis (10/29/23) Subjective Subjective Patient was seen and examined today, he is on 2 L of oxygen currently and appears comfortable. He will be undergoing dialysis today and a right-sided thoracentesis. Fluid analysis from the patient's left thoracentesis yesterday point toward an exudative process. Objective Data Objective Data Vital Signs: Vital Signs Temp Pulse Resp BP Pulse Ox O2 Del Method O2 Flow Rate 97.9 F 103 H 26 H 107/69 94 Nasal Cannula 2 10/30/23 08:00 10/30/23 09:34 10/30/23 09:34 10/30/23 09:34 10/30/23 09:35 10/30/23 09:35 10/30/23 09:35 FiO2 40 10/29/23 10:10 Oxygen Flow Rate (L/min) 2 Oxygen Delivery Method Nasal Cannula Weight: 96.933 kg Body Mass Index (BMI) 30.7 Intake & Output: Intake and Output for Last 24 Hours 10/28/23 10/29/23 10/30/23 23:59 23:59 23:59 Intake Total 550 / 550 Output Total 2605 / 2605 50 / 50 Balance -5 / -2054 -50 / -50 Lab / Micro Data 10/28/23 23:41 10/28/23 23:41 Labs: Laboratory Results - last 24 hr 10/29/23 13:07: PT 33.2 H, INR 3.3, APTT 45.5 H, Lactate Dehydrogenase 275 H, T otal Protein 6.2 L, Globulin 4.7 H, Albumin/Globulin Ratio 0.3 L 10/29/23 15:15: Fluid Source THORACENTESIS, Fluid Color YELLOW, Fluid Appearance SL CLDY, Fluid WBC 0.001, Fluid RBC 16, Fluid Tot Cell Count 0.001, Fld Polynuclear WBCs # 0.001, Fld Polynuclear WBCs % 100.0, Fluid Mononuclear WBCs 0.000, Fld Mononuclear WBCs % 0.0, Fl Pathologist Comment May follow, Fluid Comment 2 SEE COMMENT 10/29/23 15:16: Fluid Glucose 92 H, Fluid Total Protein 3.1, Fluid LDH 164 Micro: Microbiology 10/29/23 15:16 Fluid - Pleural (Lung) Gram Stain - Final Radiography Diagnostic Testing: Radiology Impression Chest CT 10/29/23 10:25 IMPRESSION: There is been a progression in the bilateral pleural effusions left greater than right with loculation in the right major fissure. Bibasilar compressive atelectasis. Status post gastric pull-through procedure. Electronically Signed: Nino Wood MD at 11:20 EDT , Chest X-Ray 10/29/23 15:02 IMPRESSION: No evidence of pneumothorax following the left thoracentesis. Electronically Signed: Nino Wood MD at 15:22 EDT , Physical Exam Const alert, oriented x3, no apparent distress and average body habitus General Appearance: cooperative, well kempt and well developed Orientation / Consciousness: awake, oriented to person, oriented to place and oriented to time HEENT normocephalic, head/scalp atraumatic and moist oral mucous membranes Eyes PERRL, EOMs intact bilaterally and conjunctivae normal Neck supple, no JVD, thyroid normal and no carotid bruits General: trachea midline Resp normal respiratory effort, no retractions and no use of accessory muscles Resp Narrative: Breath sounds are distant bilaterally Auscultation: Negative for rales, rhonchi or wheezes Cardio regular rate, regular rhythm, S1 normal heart sound, S2 normal heart sound, no murmurs, no rub and no gallops GI normal to inspection, nondistended, normoactive bowel sounds, soft to palpation, non-tender and non-distended Extremity no clubbing, cyanosis or edema Skin no rashes or lesions noted General Skin Exam: no breakdown Neuro oriented x3, CN's II-XII intact bilaterally, moves all extremities, no focal motor deficits and no sensory deficits noted Sensorium / Orientation: awake and alert Speech: speech normal Psych affect normal Assessment & Plan Assessment/Plan (1) Acute respiratory insufficiency: PLAN: Plan 1. Fluid overload secondary to acute renal failure requiring dialysis-patient will undergo dialysis today #2 bilateral pleural effusions-possibly exudative in nature-etiology unclear, patient will undergo a right thoracentesis today, pleural fluid obtained yesterday will be cultured and undergo analysis for cytology, I will have pulmonary medicine see the patient in consultation #3 hypoxia secondary to #1 and #2-patient is on low-flow oxygen at this time #4 recent sepsis from strep bacteremia-patient will remain on Ancef at this time with dialysis #5 recent thrombus right IJ secondary to temporary dialysis catheter-patient will resume Eliquis after his thoracentesis today #6 coronary artery disease-stable at this time I do not believe the patient has exacerbation of chronic diastolic congestive heart failure. Total clinical time spent by myself addressing the patient's medical issues, reviewing all of his data, and collaborating with patient's care team: 35 minutes Charges/Coding Visit Charges Inpatient E&M: 79081 Subs Hosp L2
[2023-10-30 10:19] LABS: Hematocrit 28.3 % (40-54); Hemoglobin 8.9 g/dL (13.0-16.5); Mean Corp Hgb Conc 31.4 g/dL (32-36); Mean Corpuscular Hgb 26.8 pg (27.0-32.0); Mean Corpuscular Volume 85.2 fL (80-94); Mean Platelet Vol. 10.6 fl (6.2-12.0); Platelet Count 178 K/mm3 (150-450); RBC Distribution Width CV 15.7 % (11.6-14.6); RBC Distribution Width SD 48.9 fl (35.1-43.9); Red Blood Count 3.32 M/mm3 (4.6-6.2); White Blood Count 8.4 K/mm3 (4.4-11.0)
[2023-10-30 10:57] LABS: Anion Gap 10 (5-15); BUN 79 mg/dL (7-18); BUN/Creat Ratio 9.8 RATIO (10-20); Calcium,Total 7.9 mg/dL (8.5-10.1); Chloride 98 mmol/L (98-107); Creatinine, Serum 8.07 mg/dL (0.70-1.30); EST Glomerular Filtration Rate 7 mL/min (>60); Est Glom Filt Rate - Afr Amer 9 mL/min (>60); Estimated Creatinine Clearance 10.09 ml/min; Glucose 89 mg/dL (74-106); Potassium 4.9 mmol/L (3.5-5.1); Sodium Level 132 mmol/L (136-145)
[2023-10-30] MEDS: 0.9% Normal Saline 1,000 ML IV.SOLN. 1000 ML OPERA.SITE (11:09)
[2023-10-30] MEDS: 0.9% Saline Lock 10 ML Syringe IV (11:10)
[2023-10-30] MEDS: PureFlow B 2K Dialysis Soln 1 BAG 6 BAG PF (11:10)
[2023-10-30] MEDS: Heparin 10,000 UNITS/10 ML Vial IV (11:10)
--- NOTE | 2023-10-30 11:21 | PN.RENAL_ITS ---
Subjective Subjective Breathing looks better today. Seen on dialysis today. Looks comfortable. Will be able to remove about 4 L Objective Data Objective Data Vital Signs: Vital Signs Temp Pulse Resp BP Pulse Ox O2 Del Method O2 Flow Rate 97.9 F 107 H 27 H 103/70 96 Nasal Cannula 2 10/30/23 08:00 10/30/23 11:00 10/30/23 11:00 10/30/23 11:00 10/30/23 11:00 10/30/23 11:00 10/30/23 11:00 FiO2 40 10/29/23 10:10 Oxygen Flow Rate (L/min) 2 Oxygen Delivery Method Nasal Cannula Weight: 96.933 kg Body Mass Index (BMI) 30.7 Intake & Output: Intake and Output for Last 24 Hours 10/28/23 10/29/23 10/30/23 23:59 23:59 23:59 Intake Total 550 / 550 Output Total 2605 / 2605 50 / 50 Balance -2055 / -2055 -50 / -50 Lab / Micro Data 10/30/23 10:03 10/30/23 10:03 Labs: Laboratory Results - last 24 hr 10/29/23 13:07: PT 33.2 H, INR 3.3, APTT 45.5 H, Lactate Dehydrogenase 275 H, T otal Protein 6.2 L, Globulin 4.7 H, Albumin/Globulin Ratio 0.3 L 10/29/23 15:15: Fluid Source THORACENTESIS, Fluid Color YELLOW, Fluid Appearance SL CLDY, Fluid WBC 0.001, Fluid RBC 16, Fluid Tot Cell Count 0.001, Fld Polynuclear WBCs # 0.001, Fld Polynuclear WBCs % 100.0, Fluid Mononuclear WBCs 0.000, Fld Mononuclear WBCs % 0.0, Fl Pathologist Comment May follow, Fluid Comment 2 SEE COMMENT 10/29/23 15:16: Fluid Glucose 92 H, Fluid Total Protein 3.1, Fluid LDH 164 10/30/23 10:03: WBC 8.4, RBC 3.32 L, Hgb 8.9 L, Hct 28.3 L, MCV 85.2, MCH 26.8 L , MCHC 31.4 L, RDW Std Deviation 48.9 H, RDW Coeff of Marcos 15.7 H, Plt Count 178, MPV 10.6, Sodium 132 L, Potassium 4.9, Chloride 98, Carbon Dioxide 24.0, Anion Gap 10, BUN 79 H, Creatinine 8.07 H*, Estim Creat Clear Calc 10.09, Est GFR (MDRD) Af Amer 9 L, Est GFR (MDRD) Non-Af 7 L, BUN/Creatinine Ratio 9.8 L, Glucose 89, Calcium 7.9 L Micro: Microbiology 10/29/23 15:16 Fluid - Pleural (Lung) Gram Stain - Final Radiography Diagnostic Testing: Radiology Impression Chest CT 10/29/23 10:25 IMPRESSION: There is been a progression in the bilateral pleural effusions left greater than right with loculation in the right major fissure. Bibasilar compressive atelectasis. Status post gastric pull-through procedure. Electronically Signed: Nino Wood MD at 11:20 EDT , Chest X-Ray 10/29/23 15:02 IMPRESSION: No evidence of pneumothorax following the left thoracentesis. Electronically Signed: Nino Wood MD at 15:22 EDT , Physical Exam Narrative Alert awake oriented x 3 no obvious distress no pallor no icterus no JVD s1s2 no murmurs lungs clear abdomen soft no organomegaly +++ edema no cyanosis Assessment & Plan Assessment/Plan (1) Acute kidney injury: PLAN: Baseline creatinine prior to previous admission was normal. He presented with Streptococcus group G bacteremia. Kidney biopsy was consistent with ATN, no evidence of postinfectious glomerulonephritis. Has been on dialysis since last admission. CT chest shows massive pleural effusions. S/p pleural tap yesterday. Dialysis today, we will plan for about 4 L of fluid removal today. Will plan for another session of dialysis tomorrow or ultrafiltration. Recent bacteremia. Supposed to be on cefazolin with a stop date of 11/25/2023. Discussed with hospitalist, this will be resumed Anasarca/fluid overload/pleural effusions. Will attempt removal with dialysis. Not making much urine Thrombocytopenia, resolved Right IJ provoked thrombosis secondary to previous dialysis catheter. On Eliquis
[2023-10-30 11:46] LABS: Pathologist Comment/Body Fluid Reviewed
--- NOTE | 2023-10-30 12:32 | CASEMGMT ---
Social Work Power of Senior Hardware Design Engineer for Healthcare is scanned into [employer], pt's is listed as healthcare POA. AKILAH Sampson
[2023-10-30] MEDS: Aspirin 81 MG TAB.CHEW PO (13:03)
[2023-10-30] MEDS: Senna/Docusate Sodium 1 Tablet 2 TABLET PO ×2 (13:03→20:41)
[2023-10-30] MEDS: Pantoprazole Sodium 40 MG Tablet PO ×2 (13:03→20:41)
[2023-10-30] MEDS: Polyethylene Glycol 3350 17 GM PACKET PO (13:04)
[2023-10-30] MEDS: Metoprolol Tartrate 25 MG Tablet PO ×2 (13:04→20:41)
[2023-10-30] MEDS: Ezetimibe 10 MG Tablet PO (13:05)
[2023-10-30] MEDS: Lidocaine 2% (20 ml mdv) 20 ML Vial INFILT (14:23)
--- NOTE | 2023-10-30 14:30 | US_ITS ---
PROCEDURE: ULTRASOUND GUIDED THORACENTESIS. DATE: October 30, 2023.. INDICATION: Male, 68 years old. Right pleural effusion. PHYSICIAN: Nino Wood M.D. PROCEDURE: The risks, benefits, and alternatives to the procedure were explained to the patient. The specific risks of bleeding, infection, and pneumothorax requiring chest tube insertion were discussed and accepted. Written informed consent was obtained. Ultrasonographic evaluation of the right lower pleural space was carried out. An adequate pocket was identified. The patient was placed in the sitting, upright position. The overlying skin was prepped and draped in sterile fashion. 1% lidocaine was administered subcutaneously for local anesthesia. Under ultrasound guidance, a 5 [place] thoracentesis needle/catheter system was advanced into the right posterior lower pleural fluid collection. Approximately 1360 mL of adalberto-colored fluid was drained. The catheter was removed, and a sterile dressing was applied. A specimen was collected and sent to the laboratory for analysis, as requested by the referring clinician. The patient tolerated the procedure well. A chest x-ray was ordered. US/Thoracentesis W US IMPRESSION: Ultrasound-guided right thoracentesis. Electronically Signed: Nino Wood MD at 15:56 EDT ,
--- NOTE | 2023-10-30 14:38 | CASEMGMT ---
Discharge Planning Updates sent to [place] via [facility]. Tata Nieto DC Planning Asst.
--- NOTE | 2023-10-30 14:45 | RAD_ITS ---
STUDY: X-RAY CHEST REASON FOR EXAM: Male, 68 years old. Post thoracentesis TECHNIQUE: AP inspiration and expiration views. COMPARISON: Comparison is made with prior study dated October 28, 2022. FINDINGS: The patient is status post right thoracentesis. There is no evidence of pneumothorax. Small left pleural effusion with left basilar atelectasis. RAD/Chest Insp/Exp 2 View IMPRESSION: Status post right thoracentesis. There is no evidence of pneumothorax. Electronically Signed: Nino Wood MD at 14:57 EDT ,
--- NOTE | 2023-10-30 15:03 | PCM.OP.PRO ---
Procedure Report Date of Procedure: 10/30/23 Assessment & Plan Assessment/Plan (1) Pleural effusion: PLAN: PROCEDURE: Ultrasound Guided Thoracentesis ORDERING PROVIDER: Dr. Almanzar INDICATION: Male, 68 years old. Right pleural effusion. PROVIDER: AVINASH Chandler PROCEDURE: The risks, benefits, and alternatives to the procedure were explained to the patient. The specific risks of bleeding, infection, and pneumothorax requiring chest tube insertion were discussed and accepted. Written informed consent was obtained. The patient was placed in the sitting, upright position. Ultrasonographic evaluation of the bilateral lower pleural spaces was carried out. An adequate pocket was identified in the right lower pleural space.The overlying skin was prepped and draped in sterile fashion. 2% lidocaine was administered subcutaneously for local anesthesia. Under ultrasound guidance, a 5-Italian thoracentesis needle/catheter system was advanced into the right posterior lower pleural fluid collection. 1360 ml of clear adalberto colored fluid was drained. The catheter was removed, and a sterile dressing was applied. The patient tolerated the procedure well. A chest x-ray was ordered. Following the chest x-ray, the patient's dressing was reassessed. There is evidence of hematoma at the site of the drainage. Pressure was applied, as was an ice pack to the area. Nursing made note of this and communicated in handoff report. I personally spoke with Dr. Almanzar to inform him of this. Patient denies pain or shortness of breath. Chest x-ray is negative for pneumothorax. IMPRESSION: Successful ultrasound-guided thoracentesis of right pleural effusion. Procedures Radiology Radiology US Procedures: 78076 Thoracentesis
[2023-10-30] MEDS: Atorvastatin Calcium 80 MG Tablet PO (20:41)
[2023-10-31] VITALS (18 sets, daily range): BP systolic 97–145; BP diastolic 65–73; PULSE 75–126; RESP 14–30; TEMP 36.3–36.8; O2SAT 95–100; BMI 29.7; BMI 29.0
[2023-10-31 06:50] LABS: Anion Gap 12 (5-15); BUN 91 mg/dL (7-18); BUN/Creat Ratio 10.6 RATIO (10-20); Calcium,Total 7.7 mg/dL (8.5-10.1); Chloride 99 mmol/L (98-107); Creatinine, Serum 8.56 mg/dL (0.70-1.30); EST Glomerular Filtration Rate 7 mL/min (>60); Est Glom Filt Rate - Afr Amer 8 mL/min (>60); Estimated Creatinine Clearance 9.37 ml/min; Glucose 98 mg/dL (74-106); Potassium 5.7 mmol/L (3.5-5.1); Sodium Level 132 mmol/L (136-145)
--- NOTE | 2023-10-31 07:59 | EX.PCM.CONCC ---
Assessment & Plan Assessment/Plan (1) Pleural effusion: PLAN: Plan RECOMMENDATIONS: 1. Ongoing dialysis support per nephrology recommendations. 2. Await finalized pleural fluid cytology report. 3. Supplemental oxygen, if needed, to maintain saturations at or above 90%. 4. Encourage incentive spirometer use and mobilize patient as tolerated. 5. If recurrent pleural effusions continued to be an issue, the patient will need to be evaluated by thoracic surgery. 6. Will sign off at this time. Please call with any additional questions. IMPRESSIONS: 1. Recurrent bilateral pleural effusions Most likely related to underlying renal insufficiency and volume status. The pleural fluid removed from the left hemithorax on October 28 was only borderline exudative in nature. I still suspect that this is related to his volume status in the setting of end-stage renal disease. Nevertheless, if the patient continues to have recurrent pleural effusions, the pleural space itself may eventually become complicated and more difficult to drain. Therefore, if this were to be a recurring, ongoing issue, he may need to be referred on an outpatient basis to thoracic surgery to be considered for pleurodesis. Otherwise, the patient is stable from a respiratory perspective on room air at this time. I have no additional recommendations. This note was generated with [employer] dictation software. It may contain incorrect words, spelling, and punctuation that were not noted in checking the note before signing. HPI Consult Data Date of Consult: 10/31/23 HPI Narrative Reason for Consultation: Pleural effusion HPI Narrative: The patient is a 68-year-old male, with a history as outlined below, who presented to the emergency department on October 28 with shortness of breath. The patient has a known history of coronary artery disease status post CABG, valvular heart disease, history of esophageal adenocarcinoma, end-stage renal disease on hemodialysis, hypertension, hyperlipidemia and chronic pleural effusions. The patient was recently admitted here with sepsis secondary to Streptococcus cystitis and was discharged on IV Ancef by infectious diseases. On presentation to the emergency department, the patient was documented to be afebrile and hemodynamically stable. Laboratory evaluation revealed a normal white blood cell count. Hemoglobin and platelet count were stable. Lactate was normal. BNP was elevated at 756. Chest x-ray demonstrated bilateral pleural effusions, left greater than right. A follow-up CT scan was completed of the chest on October 28 which again demonstrated bilateral pleural effusions with compressive atelectasis. The patient was subsequently admitted to the progressive care unit for further management. To date, the patient has undergone 2 separate thoracentesis procedures. On October 28, the patient underwent a left-sided thoracentesis with 1.6 L of fluid removed. On October 29, the right hemithorax was tapped with 1.3 L of fluid removed. No organisms were seen on the Gram stain from the first procedure. The pleural fluid analysis on the first thoracentesis was borderline exudative, only meeting criteria by the LDH being greater than two thirds the upper limits of normal serum LDH. Pleural fluid cytology is still pending. [facility] Medical History (Updated 10/29/23 @ 15:[address] Gaudencio Greenberg MD) Acute kidney injury Adenocarcinoma of esophagus LEELA (acute kidney injury) Non-smoker Esophageal carcinoma Atherosclerosis of coronary artery of [place] heart without angina pectoris 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 Essential (primary) hypertension Non-rheumatic aortic stenosis Syncope and collapse Hyperlipidemia Atherosclerotic heart disease of [place] coronary artery with other forms of angina pectoris Encounter for long-term current use of high risk medication abnormal stress test Angina pectoris Exertional chest pain URI (upper respiratory infection) Home Medications ?Medication ?Instructions ?Recorded ?Last Taken ?Type aspirin 81 mg chewable tablet 81 mg PO DAILY@0800 HEALTH 01/23/14 10/10/23 History atorvastatin 80 mg tablet 80 mg PO QHS CHOLESTEROL #90 tabs 05/15/22 10/10/23 Rx ezetimibe 10 mg tablet 10 mg PO DAILY CHOLESTEROL #90 tabs 05/15/22 10/10/23 Rx cefazolin 2 gram intravenous 2 g IV .see below 33 days 10/23/23 Unknown Rx solution acetaminophen 325 mg tablet 650 mg (2 x 325 mg) PO Q6H PRN PRN 10/25/23 Unknown Rx Pain 1-10 Or Fever >100.7 #0 tabs apixaban 5 mg tablet (Eliquis) 10 mg (2 x 5 mg) PO BID #0 tabs 10/25/23 Unknown Rx melatonin 3 mg tablet 3 mg PO QHS PRN PRN Insomnia #0 10/25/23 Unknown Rx tabs metoprolol tartrate 25 mg tablet 25 mg PO BID #0 tabs 10/25/23 Unknown Rx pantoprazole 40 mg tablet,delayed 40 mg PO BID #0 tabs 10/25/23 Unknown Rx release polyethylene glycol 3350 17 17 g PO BID #119 grams 10/25/23 Unknown Rx gram/dose oral powder (Miralax) sennosides 8.6 mg-docusate sodium 2 tab PO BID #0 tabs 10/25/23 Unknown Rx 50 mg tablet (Stimulant Laxative Plus) oxycodone 5 mg tablet 5 mg PO Q4H PRN PRN Pain Score 4-10 10/28/23 Unknown History Allergy/AdvReac Type Severity Reaction Status Date / Time No Known Allergies Allergy Verified 10/28/23 23:34 Family History Father Heart disease Myocardial infarction Hypertension Brother Hypertension Sister Heart disease Myocardial infarction Surgical History History of aortic valve replacement (03/03/19) History of coronary artery stent placement (12/31/18) H/O coronary artery bypass surgery (09/18/02) History of tonsillectomy History of hernia repair Social History Smoking Status: Never smoker alcohol intake: never substance use type: does not use caffeine: No what type of physical activity do you participate in: walking frequency: daily ROS ROS Narrative 10 systems were reviewed with pertinent positives as noted in the HPI above. Physical Exam Const alert and no apparent distress General Appearance: cooperative HEENT normocephalic and head/scalp atraumatic Eyes PERRL, EOMs intact bilaterally and conjunctivae normal Neck supple General: trachea midline Chest inspection of chest normal Resp normal respiratory effort Auscultation: diminished lung sounds; Negative for rales, rhonchi or wheezes Cardio regular rate and regular rhythm GI normal to inspection, nondistended, normoactive bowel sounds Extremity no clubbing, cyanosis or edema Skin no rashes or lesions noted Neuro CN's II-XII intact bilaterally and no focal motor deficits Psych Mood & Affect: flat affect Lab / Micro Data 10/30/23 10:03 10/31/23 05:14 Labs: Laboratory Results - last 24 hr 10/29/23 15:15: Fl Pathologist Comment Reviewed 10/30/23 10:03: WBC 8.4, RBC 3.32 L, Hgb 8.9 L, Hct 28.3 L, MCV 85.2, MCH 26.8 L, MCHC 31.4 L, RDW Std Deviation 48.9 H, RDW Coeff of Marcos 15.7 H, Plt Count 178, MPV 10.6, Sodium 132 L, Potassium 4.9, Chloride 98, Carbon Dioxide 24.0, Anion Gap 10, BUN 79 H, Creatinine 8.07 H*, Estim Creat Clear Calc 10.09, Est GFR (MDRD) Af Amer 9 L, Est GFR (MDRD) Non-Af 7 L, BUN/Creatinine Ratio 9.8 L, Glucose 89, Calcium 7.9 L 10/31/23 05:14: Sodium 132 L, Potassium 5.7 H, Chloride 99, Carbon Dioxide 21.0, Anion Gap 12, BUN 91 H, Creatinine 8.56 H*, Estim Creat Clear Calc 9.37, Est GFR (MDRD) Af Amer 8 L, Est GFR (MDRD) Non-Af 7 L, BUN/Creatinine Ratio 10.6, Glucose 98, Calcium 7.7 L Micro: Microbiology 10/29/23 15:16 Fluid - Pleural (Lung) Gram Stain - Final 10/29/23 15:16 Fluid - Pleural (Lung) Body Fluid Culture - Preliminary No growth-Final to follow Imaging Radiology Impression Vessel Mapping-Hemodialysis Access 10/30/23 07:23 Interpretation Summary Bilateral upper extremity veins patent with measurements above. Bilateral upper extremity arteries patent with normal waveforms and measurements above. Ordering Physician: Gaudencio Greenberg Referring Physician: Yaw Singh Performed By: Di Appiah RVT ??? Thoracentesis Ultrasound 10/30/23 14:30 IMPRESSION: Ultrasound-guided right thoracentesis. Electronically Signed: Nino Wood MD at 15:56 EDT , Chest X-Ray 10/30/23 14:45 IMPRESSION: Status post right thoracentesis. There is no evidence of pneumothorax. Electronically Signed: Nino Wood MD at 14:57 EDT , Charges/Coding Visit Charges Inpatient E&M: 20041 Init Hosp L2
[2023-10-31 09:41] LABS: Vitamin B12 930 pg/mL (211-911)
[2023-10-31] MEDS: PureFlow B 2K Dialysis Soln 1 BAG 6 BAG PF (10:01)
[2023-10-31] MEDS: 0.9% Normal Saline 1,000 ML IV.SOLN. 1000 ML OPERA.SITE (10:01)
[2023-10-31] MEDS: Heparin 10,000 UNITS/10 ML Vial IV (10:01)
[2023-10-31] MEDS: 0.9% Saline Lock 10 ML Syringe IV ×2 (10:02→12:53)
--- NOTE | 2023-10-31 10:36 | CASEMGMT ---
SW met with patient. Introduced self and role at [facility]. Patient confirmed his plan is to return to [facility] at discharge. Plan: d/c back to [facility] when medically ready. Fidelina HARRISON
[2023-10-31] MEDS: Ezetimibe 10 MG Tablet PO (11:07)
[2023-10-31] MEDS: Metoprolol Tartrate 25 MG Tablet PO ×2 (11:07→20:56)
[2023-10-31] MEDS: Pantoprazole Sodium 40 MG Tablet PO ×2 (11:07→20:57)
[2023-10-31] MEDS: Aspirin 81 MG TAB.CHEW PO (11:07)
[2023-10-31] MEDS: Cefazolin 2 GM in 0.9% Normal Saline (100mL Bag) 100 ML IV (12:50)
--- NOTE | 2023-10-31 13:13 | PCM.PN.REN ---
Subjective Subjective Seen on dialysis today Objective Data Objective Data Vital Signs: Vital Signs Temp Pulse Resp BP Pulse Ox O2 Del Method O2 Flow Rate 97.4 F L 112 H 17 104/73 98 Room Air 2 10/31/23 10:15 10/31/23 11:07 10/31/23 10:15 10/31/23 10:15 10/31/23 10:15 10/31/23 10:15 10/31/23 10:00 FiO2 2 10/31/23 05:00 Oxygen Flow Rate (L/min) 2 Oxygen Delivery Method Room Air Weight: 91.93 kg Body Mass Index (BMI) 29.0 Intake & Output: Intake and Output for Last 24 Hours 10/29/23 10/30/23 10/31/23 23:59 23:59 23:59 Intake Total 550 / 550 480 / 480 100 / 100 Output Total 2605 / 2605 4960 / 4960 2630 / 2630 Balance -2055 / -2055 -4480 / -4480 -2530 / -2530 Lab / Micro Data 10/30/23 10:03 10/31/23 05:14 Labs: Laboratory Results - last 24 hr 10/30/23 10:03: Vitamin B12 930 H 10/31/23 05:14: Sodium 132 L, Potassium 5.7 H, Chloride 99, Carbon Dioxide 21.0, Anion Gap 12, BUN 91 H, Creatinine 8.56 H*, Estim Creat Clear Calc 9.37, Est GFR (MDRD) Af Amer 8 L, Est GFR (MDRD) Non-Af 7 L, BUN/Creatinine Ratio 10.6, Glucose 98, Calcium 7.7 L Micro: Microbiology 10/29/23 15:16 Fluid - Pleural (Lung) Gram Stain - Final 10/29/23 15:16 Fluid - Pleural (Lung) Body Fluid Culture - Preliminary No growth-Final to follow 10/29/23 15:16 Fluid - Pleural (Lung) Anaerobic Culture - Preliminary No growth in 48 hours. Radiography Diagnostic Testing: Radiology Impression Vessel Mapping-Hemodialysis Access 10/30/23 07:23 Interpretation Summary Bilateral upper extremity veins patent with measurements above. Bilateral upper extremity arteries patent with normal waveforms and measurements above. Ordering Physician: Gaudencio Greenberg Referring Physician: Yaw Singh Performed By: Di Appiah Devang ??? Thoracentesis Ultrasound 10/30/23 14:30 IMPRESSION: Ultrasound-guided right thoracentesis. Electronically Signed: Nino Wood MD at 15:56 EDT , Chest X-Ray 10/30/23 14:45 IMPRESSION: Status post right thoracentesis. There is no evidence of pneumothorax. Electronically Signed: Nino Wood MD at 14:57 EDT , Physical Exam Narrative Alert awake oriented x 3 no obvious distress no pallor no icterus no JVD s1s2 no murmurs lungs clear abdomen soft no organomegaly +++ edema no cyanosis Assessment & Plan Assessment/Plan (1) Acute kidney injury: PLAN: Baseline creatinine prior to previous admission was normal. He presented with Streptococcus group G bacteremia. Kidney biopsy was consistent with ATN, no evidence of postinfectious glomerulonephritis. Has been on dialysis since last admission. CT chest shows massive pleural effusions. S/p pleural tap Recent bacteremia. Supposed to be on cefazolin with a stop date of 11/25/2023. HD today, repeat dose Anasarca/fluid overload/pleural effusions. better Thrombocytopenia, resolved Right IJ provoked thrombosis secondary to previous dialysis catheter. On Eliquis HD today. likely repeat tomorrow. cefazolin after every treatment Reviewed final biopsy report only 4 glomeruli. sample was sent in wrong medium. IF and EM not done. from the sample it appears ATN/pyelo. anuric. HD for now if no recovery after a month or so will repeat biopsy
--- NOTE | 2023-10-31 13:59 | PCM.PROGNOTE ---
Subjective Subjective Patient seen and examined. He was having dialysis at time of my review. He had no active complaints and had an uneventful night. He denied any fever, chills, chest pain, palpitations, dizziness, nausea vomiting or any other symptoms. Review of systems otherwise negative. She has remained hemodynamically stable Objective Data Objective Data Vital Signs: Vital Signs Temp Pulse Resp BP Pulse Ox O2 Del Method O2 Flow Rate 97.4 F L 112 H 17 104/73 98 Room Air 2 10/31/23 10:15 10/31/23 11:07 10/31/23 10:15 10/31/23 10:15 10/31/23 10:15 10/31/23 10:15 10/31/23 10:00 FiO2 2 10/31/23 05:00 Oxygen Flow Rate (L/min) 2 Oxygen Delivery Method Room Air Weight: 202 lb 10.735 oz Body Mass Index (BMI) 29.0 Intake & Output: Intake and Output for Last 24 Hours 10/29/23 10/30/23 10/31/23 23:59 23:59 23:59 Intake Total 550 / 550 480 / 480 330 / 330 Output Total 2605 / 2605 4960 / 4960 2630 / 2630 Balance -2055 / -2055 -4480 / -4480 -2300 / -2300 Lab / Micro Data 10/30/23 10:03 10/31/23 05:14 Labs: Laboratory Results - last 24 hr 10/30/23 10:03: Vitamin B12 930 H 10/31/23 05:14: Sodium 132 L, Potassium 5.7 H, Chloride 99, Carbon Dioxide 21.0, Anion Gap 12, BUN 91 H, Creatinine 8.56 H*, Estim Creat Clear Calc 9.37, Est GFR (MDRD) Af Amer 8 L, Est GFR (MDRD) Non-Af 7 L, BUN/Creatinine Ratio 10.6, Glucose 98, Calcium 7.7 L Micro: Microbiology 10/29/23 15:16 Fluid - Pleural (Lung) Gram Stain - Final 10/29/23 15:16 Fluid - Pleural (Lung) Body Fluid Culture - Preliminary No growth-Final to follow 10/29/23 15:16 Fluid - Pleural (Lung) Anaerobic Culture - Preliminary No growth in 48 hours. Radiography Diagnostic Testing: Radiology Impression Vessel Mapping-Hemodialysis Access 10/30/23 07:23 Interpretation Summary Bilateral upper extremity veins patent with measurements above. Bilateral upper extremity arteries patent with normal waveforms and measurements above. Ordering Physician: Gaudencio Greenberg Referring Physician: Yaw Singh Performed By: Di Appiah Devang ??? Thoracentesis Ultrasound 10/30/23 14:30 IMPRESSION: Ultrasound-guided right thoracentesis. Electronically Signed: Nino Wood MD at 15:56 EDT , Chest X-Ray 10/30/23 14:45 IMPRESSION: Status post right thoracentesis. There is no evidence of pneumothorax. Electronically Signed: Nino Wood MD at 14:57 EDT , Physical Exam Const alert, oriented x3 and no apparent distress Constitutional Narrative: frail General Appearance: cooperative and well developed HEENT normocephalic, head/scalp atraumatic, moist oral mucous membranes and oropharynx normal Eyes PERRL and EOMs intact bilaterally Neck supple and no JVD Lymph Lymphatic: no lymphadenopathy noted and no lymphedema noted Resp Resp Narrative: diminished breath sounds bibasally, on wheezes or crackles. On room air. Cardio regular rate, regular rhythm, S1 normal heart sound, S2 normal heart sound and no murmurs GI normal to inspection, nondistended, normoactive bowel sounds, soft to palpation, non-tender and non-distended Extremity normal capillary refill, no clubbing, cyanosis or edema and no calf tenderness Extremity Narrative: has temporary dialysis catheter in place General Extremity: no tenderness to palpation of joints or extremities Skin General Skin Exam: no breakdown Neuro CN's II-XII intact bilaterally, no focal motor deficits, no sensory deficits noted and deep tendon reflexes 2+ bilaterally Motor Exam: strength 5/5 throughout and general weakness Psych thought process normal, cooperative and affect normal Appearance: appropriate Assessment & Plan Assessment/Plan (1) ESRD (end stage renal disease) on dialysis: (2) Acute exacerbation of chronic heart failure: PLAN: Plan #Fluid overload due to bilateral pleural effusion and acute renal failure S/p thoracentesis. Had right-sided thoracentesis with removal of 1.36 L of fluid. Pulmonology on board. Nephrology also on board and patient on hemo-dialysis. Undergoing dialysis today. #Acute renal failure in the setting of ESRD: As above. Nephrology on board. Per nephro, kidney biopsy was consistent with ATN #Hyperkalemia: Potassium is 5.7 today. Should resolve with dialysis. #History of right IJ thrombus: This was due to temporary dialysis catheter. On Eliquis which was held on account of thoracentesis. Will resume Eliquis today. #Recent history of sepsis due to strep bacteremia: On Ancef. Did receive a dose of Ancef 2 g x 1 today. Stop date for cefazolin is 11/25/2023. #History of CAD: On aspirin and statin as well as ezetimibe DVT prophylaxis: On Eliquis Charges/Coding Visit Charges Inpatient E&M: 70431 [facility] L3
[2023-10-31] MEDS: Atorvastatin Calcium 80 MG Tablet PO (20:56)
[2023-10-31] MEDS: Senna/Docusate Sodium 1 Tablet 2 TABLET PO (20:57)
[2023-10-31] MEDS: Polyethylene Glycol 3350 17 GM PACKET PO (20:58)
[2023-11-01] VITALS (12 sets, daily range): BP systolic 101–114; BP diastolic 64–74; PULSE 75–85; RESP 19–36; TEMP 36.3–36.7; O2SAT 96–99
[2023-11-01] MEDS: oxyCODONE 5 MG Tablet PO (00:16)
[2023-11-01 06:03] LABS: Absolute Lymphocyte Count 0.34 X10^3/uL (0.83-4.51); Absolute Neutrophil Count 2.8 X10^3/uL (2.0-7.7); Basophil# 0.02 X10^3/uL; Basophil% 0.5 % (0-1); Eosinophil# 0.04 X10^3/uL; Eosinophils% 1.1 % (0-5); Hemoglobin 6.9 g/dL (13.0-16.5); Lymphocyte # 0.34 X10^3/ul (0.83-4.51); Lymphocyte % 9.1 % (19-41); Mean Corp Hgb Conc 31.4 g/dL (32-36); Mean Corpuscular Hgb 26.7 pg (27.0-32.0); Mean Corpuscular Volume 85.3 fL (80-94); Mean Platelet Vol. 10.6 fl (6.2-12.0); Monocyte# 0.54 X10^3/uL; Monocyte% 14.4 % (0-10); NRBC Flagged by Analyzer 0 % (0-5); Neutrophil # 2.78 X10^3/uL (2.7-7.7); Neutrophil % 74.1 % (47-70); POSITIVE DIFFERENTIAL YES; Platelet Count 147 K/mm3 (150-450); RBC Distribution Width CV 15.7 % (11.6-14.6); RBC Distribution Width SD 49.1 fl (35.1-43.9); Red Blood Count 2.58 M/mm3 (4.6-6.2); White Blood Count 3.8 K/mm3 (4.4-11.0)
[2023-11-01 06:41] LABS: Anion Gap 9 (5-15); BUN 80 mg/dL (7-18); BUN/Creat Ratio 10.2 RATIO (10-20); Calcium,Total 7.5 mg/dL (8.5-10.1); Chloride 101 mmol/L (98-107); Creatinine, Serum 7.81 mg/dL (0.70-1.30); EST Glomerular Filtration Rate 7 mL/min (>60); Est Glom Filt Rate - Afr Amer 9 mL/min (>60); Estimated Creatinine Clearance 10.17 ml/min; Glucose 100 mg/dL (74-106); Potassium 5.1 mmol/L (3.5-5.1); Sodium Level 134 mmol/L (136-145)
[2023-11-01] MEDS: Senna/Docusate Sodium 1 Tablet 2 TABLET PO ×2 (07:45→20:43)
[2023-11-01] MEDS: Metoprolol Tartrate 25 MG Tablet PO ×2 (07:46→20:42)
[2023-11-01] MEDS: Ezetimibe 10 MG Tablet PO (07:46)
[2023-11-01] MEDS: Pantoprazole Sodium 40 MG Tablet PO ×2 (07:46→20:43)
[2023-11-01] MEDS: Aspirin 81 MG TAB.CHEW PO (07:46)
[2023-11-01 07:53] LABS: Hematocrit 22.7 % (40-54); Hemoglobin 7.1 g/dL (13.0-16.5)
--- NOTE | 2023-11-01 10:30 | PN_ITS ---
Subjective Subjective Patient seen and examined.He had no active complaints today. His hemoglobin dropped to 6.9 this morning, and on repeat it is 7.1. Hb was 8.9 yesterday. He complains of feeling a bit weak yesterday, but denies any lightheadedness, dizziness, palpitations, nausea, vomiting or any other symptoms. Review of systems is otherwise negative. Objective Data Objective Data Vital Signs: Vital Signs Temp Pulse Resp BP Pulse Ox O2 Del Method O2 Flow Rate 97.9 F 85 25 H 105/64 97 Room Air 2 11/01/23 07:52 11/01/23 07:52 11/01/23 07:52 11/01/23 07:52 11/01/23 08:04 11/01/23 08:35 10/31/23 10:00 FiO2 2 10/31/23 05:00 Oxygen Flow Rate (L/min) 2 Oxygen Delivery Method Room Air Weight: 202 lb 10.735 oz Body Mass Index (BMI) 29.0 Intake & Output: Intake and Output for Last 24 Hours 10/30/23 10/31/23 11/01/23 23:59 23:59 23:59 Intake Total 480 / 480 450 / 700 370 / 370 Output Total 4960 / 4960 2730 / 2730 Balance -4480 / -4480 -2280 / -2030 370 / 370 Lab / Micro Data 11/01/23 07:38 11/01/23 05:24 Labs: Laboratory Results - last 24 hr 10/29/23 15:16: Miscellaneous Cytology SEE PATHOLOGY REPORT 11/01/23 05:24: WBC 3.8 L, RBC 2.58 L, Hgb 6.9 L, Hct 22.0 L, MCV 85.3, MCH 26.7 L, MCHC 31.4 L, RDW Std Deviation 49.1 H, RDW Coeff of Marcos 15.7 H, Plt Count 147 L, MPV 10.6, Immature Gran % (Auto) 0.800, Neut % (Auto) 74.1 H, Lymph % (Auto) 9.1 L, Mcmullen % (Auto) 14.4 H, Eos % (Auto) 1.1, Baso % (Auto) 0.5, Absolute Neuts (auto) 2.8, Absolute Lymphs (auto) 0.34 L, Nucleated RBC % 0, Sodium 134 L, Potassium 5.1, Chloride 101, Carbon Dioxide 24.0, Anion Gap 9, BUN 80 H, C reatinine 7.81 H*, Estim Creat Clear Calc 10.17, Est GFR (MDRD) Af Amer 9 L, Est GFR (MDRD) Non-Af 7 L, BUN/Creatinine Ratio 10.2, Glucose 100, Calcium 7.5 L 11/01/23 07:38: Hgb 7.1 L, Hct 22.7 L Micro: Microbiology 10/29/23 15:16 Fluid - Pleural (Lung) Gram Stain - Final 10/29/23 15:16 Fluid - Pleural (Lung) Body Fluid Culture - Preliminary No growth-Final to follow 10/29/23 15:16 Fluid - Pleural (Lung) Anaerobic Culture - Preliminary No growth in 48 hours. Physical Exam Const alert, oriented x3 and no apparent distress Constitutional Narrative: frail General Appearance: cooperative, well kempt and well developed Orientation / Consciousness: awake, oriented to person, oriented to place and oriented to time HEENT normocephalic, head/scalp atraumatic, hearing grossly normal bilaterally, moist oral mucous membranes and oropharynx normal Eyes PERRL, EOMs intact bilaterally and conjunctivae normal Neck no lymphadenopathy, supple, no JVD, thyroid normal and no carotid bruits General: trachea midline Lymph Lymphatic: no lymphadenopathy noted and no lymphedema noted Resp normal respiratory effort, no retractions and no use of accessory muscles Resp Narrative: diminished breath sounds bibasally, on wheezes or crackles. On room air. Auscultation: Negative for rales, rhonchi or wheezes Cardio regular rate, regular rhythm, S1 normal heart sound, S2 normal heart sound, no murmurs, no rub and no gallops GI normal to inspection, nondistended, normoactive bowel sounds, soft to palpation, non-tender and non-distended Extremity normal capillary refill, no clubbing, cyanosis or edema and no calf tenderness Extremity Narrative: has temporary dialysis catheter in place General Extremity: no tenderness to palpation of joints or extremities Skin no rashes or lesions noted General Skin Exam: no breakdown Neuro oriented x3, CN's II-XII intact bilaterally, moves all extremities, no focal motor deficits, no sensory deficits noted and deep tendon reflexes 2+ bilaterally Sensorium / Orientation: awake, alert, oriented to person, oriented to place and oriented to time Speech: speech normal Motor Exam: strength 5/5 throughout and general weakness Psych thought process normal, cooperative and affect normal Appearance: appropriate Assessment & Plan Assessment/Plan (1) ESRD (end stage renal disease) on dialysis: (2) Acute exacerbation of chronic heart failure: PLAN: Plan #Fluid overload due to bilateral pleural effusion and acute renal failure * S/p thoracentesis. * Had right-sided thoracentesis with removal of 1.36 L of fluid. Pulmonology on board. Nephrology also on board and patient on hemo-dialysis. * had dialysis yesterday #LEELA: dialysis dependent. As above. Nephrology on board. Per nephro, kidney biopsy was consistent with ATN #Hyperkalemia: resolved with dialysis. #History of right IJ thrombus: This was due to temporary dialysis catheter. On Eliquis which was held on account of thoracentesis. Will continue holding eliquis due to anemia today #Iron deficiency anemia * Hb was 8.9 yesterday, and was 6.9 today. On repeat it is 7.1. * Iron panel showed iron level of 23 and iron sats of 13.5 and ferritin of 397. * consult gastroenterology. * continue holding eliquis. * transfuse with dialysis to keep Hb >7 #Recent history of sepsis due to strep bacteremia: On Ancef. Did receive a dose of Ancef 2 g x 1 today. To get a dose of cefazolin with dialysis. Stop date for cefazolin is 11/25/2023. #History of CAD: On aspirin and statin as well as ezetimibe DVT prophylaxis: SCDs. Eliquis on hold due to iron deficiency anemia Charges/Coding Visit Charges Inpatient E&M: 18076 Subs Hosp L3
[2023-11-01 11:15] LABS: Ferritin 397 ng/mL (26-388); Iron 23 ug/dL (65-175); Iron Binding Capacity,Total 171 ug/dL (250-450); PERCENT IRON SATURATION 13.5 % (15.0-55.0)
--- NOTE | 2023-11-01 13:15 | RAD_ITS ---
STUDY: X-RAY CHEST REASON FOR EXAM: Male, 68 years old. pleural effusion -- portable TECHNIQUE: PA and lateral views of the chest. COMPARISON: 10/30/2023 FINDINGS: Tunneled left internal vertebral dialysis catheter which is unchanged. Status post median sternotomy. The lungs are clear and expanded. Moderate bilateral pleural effusions with bibasilar atelectasis. There is moderate cardiac enlargement. Normal mediastinum and héctor. There is prominence of the pulmonary hilar arteries and peripheral pulmonary arteries, consistent with congestive heart failure (CHF). Normal visualized aortic arch and descending thoracic aorta. Normal visualized thoracic spine. Normal visualized ribs, clavicles, and shoulders. There is no demonstrated abnormality of the visualized soft tissue structures of the upper abdomen. RAD/Chest PA and Lateral IMPRESSION: Mild volume overload with moderate bilateral pleural effusions. Electronically Signed: Rios Rosario MD at 13:35 EDT ,
--- NOTE | 2023-11-01 13:44 | PN.RENAL_ITS ---
Subjective Subjective breathing looks ok. edema better overall Objective Data Objective Data Vital Signs: Vital Signs Temp Pulse Resp BP Pulse Ox O2 Del Method O2 Flow Rate 97.6 F L 81 19 H 101/72 96 Room Air 2 11/01/23 10:00 11/01/23 10:00 11/01/23 10:00 11/01/23 10:00 11/01/23 11:44 11/01/23 10:00 10/31/23 10:00 FiO2 2 10/31/23 05:00 Oxygen Flow Rate (L/min) 2 Oxygen Delivery Method Room Air Weight: 91.93 kg Body Mass Index (BMI) 29.0 Intake & Output: Intake and Output for Last 24 Hours 10/30/23 10/31/23 11/01/23 23:59 23:59 23:59 Intake Total 480 / 480 450 / 700 470 / 470 Output Total 4960 / 4960 2730 / 2730 100 / 100 Balance -4480 / -4480 -2280 / -2030 370 / 370 Lab / Micro Data 11/01/23 07:38 11/01/23 05:24 Labs: Laboratory Results - last 24 hr 10/29/23 15:16: Miscellaneous Cytology SEE PATHOLOGY REPORT 11/01/23 05:24: WBC 3.8 L, RBC 2.58 L, Hgb 6.9 L, Hct 22.0 L, MCV 85.3, MCH 26.7 L, MCHC 31.4 L, RDW Std Deviation 49.1 H, RDW Coeff of Marcos 15.7 H, Plt Count 147 L, MPV 10.6, Immature Gran % (Auto) 0.800, Neut % (Auto) 74.1 H, Lymph % (Auto) 9.1 L, [place] % (Auto) 14.4 H, Eos % (Auto) 1.1, Baso % (Auto) 0.5, Absolute Neuts (auto) 2.8, Absolute Lymphs (auto) 0.34 L, Nucleated RBC % 0, Sodium 134 L, Potassium 5.1, Chloride 101, Carbon Dioxide 24.0, Anion Gap 9, BUN 80 H, C reatinine 7.81 H*, Estim Creat Clear Calc 10.17, Est GFR (MDRD) Af Amer 9 L, Est GFR (MDRD) Non-Af 7 L, BUN/Creatinine Ratio 10.2, Glucose 100, Calcium 7.5 L, I mitali 23 L, TIBC 171 L, Iron Saturation 13.5 L, Ferritin 397 H 11/01/23 07:38: Hgb 7.1 L, Hct 22.7 L Micro: Microbiology 10/29/23 15:16 Fluid - Pleural (Lung) Gram Stain - Final 10/29/23 15:16 Fluid - Pleural (Lung) Body Fluid Culture - Final Culture exhibits no growth. 10/29/23 15:16 Fluid - Pleural (Lung) Anaerobic Culture - Preliminary No growth in 48 hours. Radiography Diagnostic Testing: Radiology Impression Chest X-Ray 11/01/23 13:15 IMPRESSION: Mild volume overload with moderate bilateral pleural effusions. Electronically Signed: Rios Rosario MD at 13:35 EDT , Physical Exam Narrative Alert awake oriented x 3 no obvious distress no pallor no icterus no JVD s1s2 no murmurs lungs clear abdomen soft no organomegaly +++ edema no cyanosis Assessment & Plan Assessment/Plan (1) Acute kidney injury: PLAN: Baseline creatinine prior to previous admission was normal. He presented with Streptococcus group G bacteremia. Kidney biopsy was consistent with ATN, no evidence of postinfectious glomerulonephritis. Has been on dialysis since last admission. CT chest shows massive pleural effusions. S/p pleural tap Recent bacteremia. Supposed to be on cefazolin with a stop date of 11/25/2023. Anasarca/fluid overload/pleural effusions. better Thrombocytopenia, resolved Right IJ provoked thrombosis secondary to previous dialysis catheter. On Eliquis HD MWF schedule for now kidney biopsy. only 4 glomeruli. sample was sent in wrong medium. IF and EM not done. from the sample it appears ATN/pyelo. anuric. HD for now if no recovery after a month or so will repeat biopsy Anemia. Hb drop today. dw hospitalist. ? PRBC
[2023-11-01] MEDS: 0.9% Saline Lock 10 ML Syringe IV (14:23)
[2023-11-01] MEDS: Cefazolin 2 GM in 0.9% Normal Saline (100mL Bag) 100 ML IV (14:23)
[2023-11-01 15:09] LABS: Folate, RBC (Hct) Test 23.8 % (37.5-51.0); Folates, RBC Test 1613 ng/mL (>498)
--- NOTE | 2023-11-01 18:20 | EX.PCM.CON.G ---
HPI Consult Data Date of Consult: 11/01/23 HPI Narrative HPI Narrative: NICKO ROSALES, is a 68 M who was recently discharged from the hospital after long stay. He had dialysis was attempted on the patient but he became dyspneic and dialysis had to be stopped. CT scan of the chest which showed bilateral pleural effusions left more than right. Ultrasound-guided left thoracentesis was performed on the patient. The fluid was more exudative and thought to be secondary to his renal failure. He has a past medical history of essential hypertension, hyperlipidemia, obesity; with BMI of 31.8 this admission, CAD; s/p CABG x 3 (2002) with subsequent stents (), history of nonrheumatic Aortic Stenosis; s/p AVR (2018), history of esophageal adenocarcinoma; s/p Roger esophageal resection and chemotherapy (2020), ESRD on HD; (-W-) followed by Dr. Greenberg, history of Right IJ thrombus secondary to temporary dialysis catheter; on Eliquis,. He also had altered mental status and Right flank/low back pain with laboratory evidence of acute renal failure (attributed to ATN), thrombocytopenia of 26 K present on admission, altered mental status and suspected sepsis attributed to acute cystitis from Streptococcus evaluated formally by Dr. Mann of infectious disease with patient discharged on IV Ancef who re-presents to [facility] ER complaining of shortness of breath. I was asked to see him due to decreasing hemoglobin. [facility] Medical History (Updated 10/29/23 @ 15:[address] Gaudencio Greenberg MD) Acute kidney injury Adenocarcinoma of esophagus LEELA (acute kidney injury) Non-smoker Esophageal carcinoma Atherosclerosis of coronary artery of [place] heart without angina pectoris 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 Essential (primary) hypertension Non-rheumatic aortic stenosis Syncope and collapse Hyperlipidemia Atherosclerotic heart disease of [place] coronary artery with other forms of angina pectoris Encounter for long-term current use of high risk medication abnormal stress test Angina pectoris Exertional chest pain URI (upper respiratory infection) Home Medications ?Medication ?Instructions ?Recorded ?Last Taken ?Type aspirin 81 mg chewable tablet 81 mg PO DAILY@0800 HEALTH 01/23/14 10/10/23 History atorvastatin 80 mg tablet 80 mg PO QHS CHOLESTEROL #90 tabs 05/15/22 10/10/23 Rx ezetimibe 10 mg tablet 10 mg PO DAILY CHOLESTEROL #90 tabs 05/15/22 10/10/23 Rx cefazolin 2 gram intravenous 2 g IV .see below 33 days 10/23/23 Unknown Rx solution acetaminophen 325 mg tablet 650 mg (2 x 325 mg) PO Q6H PRN PRN 10/25/23 Unknown Rx Pain 1-10 Or Fever >100.7 #0 tabs apixaban 5 mg tablet (Eliquis) 10 mg (2 x 5 mg) PO BID #0 tabs 10/25/23 Unknown Rx melatonin 3 mg tablet 3 mg PO QHS PRN PRN Insomnia #0 10/25/23 Unknown Rx tabs metoprolol tartrate 25 mg tablet 25 mg PO BID #0 tabs 10/25/23 Unknown Rx pantoprazole 40 mg tablet,delayed 40 mg PO BID #0 tabs 10/25/23 Unknown Rx release polyethylene glycol 3350 17 17 g PO BID #119 grams 10/25/23 Unknown Rx gram/dose oral powder (Miralax) sennosides 8.6 mg-docusate sodium 2 tab PO BID #0 tabs 10/25/23 Unknown Rx 50 mg tablet (Stimulant Laxative Plus) oxycodone 5 mg tablet 5 mg PO Q4H PRN PRN Pain Score 4-10 10/28/23 Unknown History Allergy/AdvReac Type Severity Reaction Status Date / Time No Known Allergies Allergy Verified 10/28/23 23:34 Family History Father Heart disease Myocardial infarction Hypertension Brother Hypertension Sister Heart disease Myocardial infarction Surgical History History of aortic valve replacement (03/03/19) History of coronary artery stent placement (12/31/18) H/O coronary artery bypass surgery (09/18/02) History of tonsillectomy History of hernia repair Social History Smoking Status: Never smoker alcohol intake: never substance use type: does not use caffeine: No what type of physical activity do you participate in: walking frequency: daily ROS ROS Narrative Review of systems: Constitutional: Patient denies fever or chills. Eyes: Patient denies changes in vision or discharge from eyes. ENT: Patient denies significant runny nose, sore throat or ear pain. CV: Patient admits to a sensation of heaviness in his chest but denies palpitations or heart racing. Resp: Patient admits to TRIPATHI that progressed to SOB at rest made worse by lying flat. He denies cough. GI: Patient denies nausea, vomiting, diarrhea or constipation. : Patient is completely anuric. MSK: Patient denies arthralgias or myalgias. Skin: Patient denies abscess, rash or jaundice. Psych: Patient denies symptoms of uncontrolled depression or anxiety. Neuro: Patient denies headache, paresthesias or focal neurologic deficits. Allergy: Patient denies lip swelling, tongue swelling or urticaria. Hematology :Patient denies easy bleeding or easy bruisability. Endocrinology: Patient denies polyuria, polydipsia or polyphagia. 14 point ROS otherwise negative except for positives noted above. Physical Exam Const alert, oriented x3 and no apparent distress Constitutional Narrative: frail General Appearance: cooperative, well kempt and well developed Orientation / Consciousness: awake, oriented to person, oriented to place and oriented to time HEENT normocephalic, head/scalp atraumatic, hearing grossly normal bilaterally, moist oral mucous membranes and oropharynx normal Eyes PERRL, EOMs intact bilaterally and conjunctivae normal Neck no lymphadenopathy, supple, no JVD, thyroid normal and no carotid bruits General: trachea midline Lymph Lymphatic: no lymphadenopathy noted and no lymphedema noted Resp normal respiratory effort, no retractions and no use of accessory muscles Resp Narrative: diminished breath sounds bibasally, on wheezes or crackles. On room air. Auscultation: Negative for rales, rhonchi or wheezes Cardio regular rate, regular rhythm, S1 normal heart sound, S2 normal heart sound, no murmurs, no rub and no gallops GI normal to inspection, nondistended, normoactive bowel sounds, soft to palpation, non-tender and non-distended Extremity normal capillary refill, no clubbing, cyanosis or edema and no calf tenderness Extremity Narrative: has temporary dialysis catheter in place General Extremity: no tenderness to palpation of joints or extremities Skin no rashes or lesions noted General Skin Exam: no breakdown Neuro oriented x3, CN's II-XII intact bilaterally, moves all extremities, no focal motor deficits, no sensory deficits noted and deep tendon reflexes 2+ bilaterally Sensorium / Orientation: awake, alert, oriented to person, oriented to place and oriented to time Speech: speech normal Motor Exam: strength 5/5 throughout and general weakness Psych thought process normal, cooperative and affect normal Appearance: appropriate Lab / Micro Data 11/01/23 07:38 11/01/23 05:24 Labs: Laboratory Results - last 24 hr 10/31/23 05:14: RBC Folate Hemolysate 384.0, RBC Folate 1613, Hematocrit 23.8 L 11/01/23 05:24: WBC 3.8 L, RBC 2.58 L, Hgb 6.9 L, Hct 22.0 L, MCV 85.3, MCH 26.7 L, MCHC 31.4 L, RDW Std Deviation 49.1 H, RDW Coeff of Marcos 15.7 H, Plt Count 147 L, MPV 10.6, Immature Gran % (Auto) 0.800, Neut % (Auto) 74.1 H, Lymph % (Auto) 9.1 L, [place] % (Auto) 14.4 H, Eos % (Auto) 1.1, Baso % (Auto) 0.5, Absolute Neuts (auto) 2.8, Absolute Lymphs (auto) 0.34 L, Nucleated RBC % 0, Sodium 134 L, Potassium 5.1, Chloride 101, Carbon Dioxide 24.0, Anion Gap 9, BUN 80 H, Creatinine 7.81 H*, Estim Creat Clear Calc 10.17, Est GFR (MDRD) Af Amer 9 L, Est GFR (MDRD) Non-Af 7 L, BUN/Creatinine Ratio 10.2, Glucose 100, Calcium 7.5 L, Iron 23 L, TIBC 171 L, Iron Saturation 13.5 L, Ferritin 397 H 11/01/23 07:38: Hgb 7.1 L, Hct 22.7 L Micro: Microbiology 10/29/23 15:16 Fluid - Pleural (Lung) Gram Stain - Final 10/29/23 15:16 Fluid - Pleural (Lung) Body Fluid Culture - Final Culture exhibits no growth. 10/29/23 15:16 Fluid - Pleural (Lung) Anaerobic Culture - Preliminary No growth in 48 hours. Imaging Radiology Impression Chest X-Ray 07/25/24 13:15 IMPRESSION: Mild volume overload with moderate bilateral pleural effusions. Electronically Signed: Rios Rosario MD at 13:35 EDT , Assessment & Plan Assessment/Plan (1) ESRD (end stage renal disease) on dialysis: (2) Acute exacerbation of chronic heart failure: PLAN: Plan 68-year-old gentleman with history of sclerotic heart disease, end-stage renal disease on hemodialysis, CHF, pleural effusions who was discovered to be profoundly anemic. Acute blood loss anemia Differential diagnosis does include bleeding at the site of anastomosis from his esophagectomy. Also different diagnosis would be peptic ulcer disease and his gastric remnant. Patient should undergo an upper endoscopy to evaluate his upper GI tract. I agree with transfusion. He also has labs consistent with anemia of chronic disease. Continue holding Eliquis until after he gets an upper endoscopy tomorrow. i Charges/Coding Visit Charges Inpatient E&M: 75189 Init Hosp L3
[2023-11-01] MEDS: Atorvastatin Calcium 80 MG Tablet PO (20:42)
[2023-11-02] VITALS (29 sets, daily range): BP systolic 70–154; BP diastolic 64–75; PULSE 75–84; RESP 14–32; TEMP 36.1–37.1; O2SAT 95–100; BMI 29.0
[2023-11-02] MEDS: MELATONIN 3 MG TABLET PO (00:16)
--- NOTE | 2023-11-02 05:55 | EKG12_ITS ---
Test Reason : AM EKG Blood Pressure : / mmHG Vent. Rate : 082 BPM Atrial Rate : 082 BPM P-R Int : 198 ms QRS Dur : 096 ms QT Int : 374 ms P-R-T Axes : 039 035 067 degrees QTc Int : 436 ms Normal sinus rhythm Nonspecific T wave abnormality Abnormal ECG Confirmed by JENNY MANNING, DANNA ([id number]), associate entertainment editor CYNTHIA JOHN ([id number]) on 11/06/2023 2:05:25 PM Referred By: Confirmed By:GÓMEZ ALVARADO MD
[2023-11-02 06:07] LABS: Absolute Lymphocyte Count 0.33 X10^3/uL (0.83-4.51); Absolute Neutrophil Count 3.1 X10^3/uL (2.0-7.7); Basophil# 0.02 X10^3/uL; Basophil% 0.5 % (0-1); Eosinophil# 0.04 X10^3/uL; Hematocrit 21.6 % (40-54); Hemoglobin 6.7 g/dL (13.0-16.5); Lymphocyte # 0.33 X10^3/ul (0.83-4.51); Lymphocyte % 8.2 % (19-41); Mean Corpuscular Hgb 26.7 pg (27.0-32.0); Mean Corpuscular Volume 86.1 fL (80-94); Mean Platelet Vol. 10.7 fl (6.2-12.0); Monocyte# 0.52 X10^3/uL; NRBC Flagged by Analyzer 0 % (0-5); Neutrophil # 3.08 X10^3/uL (2.7-7.7); Neutrophil % 76.8 % (47-70); POSITIVE DIFFERENTIAL YES; Platelet Count 163 K/mm3 (150-450); RBC Distribution Width CV 15.5 % (11.6-14.6); Red Blood Count 2.51 M/mm3 (4.6-6.2)
[2023-11-02 06:15] LABS: International Normalized Ratio 1.8; Prothrombin Time (Protime)PT. 20.9 SECONDS (11.7-14.9)
[2023-11-02 06:16] LABS: Partial Thromboplast Time 40.2 Seconds (24.1-36.2)
[2023-11-02 06:51] LABS: Anion Gap 10 (5-15); BUN 91 mg/dL (7-18); BUN/Creat Ratio 9.7 RATIO (10-20); Calcium,Total 7.3 mg/dL (8.5-10.1); Chloride 101 mmol/L (98-107); EST Glomerular Filtration Rate 6 mL/min (>60); Est Glom Filt Rate - Afr Amer 7 mL/min (>60); Estimated Creatinine Clearance 8.45 ml/min; Glucose 103 mg/dL (74-106); Potassium 5.5 mmol/L (3.5-5.1); Sodium Level 133 mmol/L (136-145)
[2023-11-02] MEDS: 0.9% Normal Saline 1,000 ML IV.SOLN. 1000 ML OPERA.SITE (08:14)
[2023-11-02] MEDS: PureFlow B 2K Dialysis Soln 1 BAG 6 BAG PF (08:15)
[2023-11-02] MEDS: 0.9% Saline Lock 10 ML Syringe IV ×4 (08:15→21:22)
--- NOTE | 2023-11-02 08:37 | NURSING ---
This RN entered RIJ for dialysis cath placement when entering dialysis orders. Correction,Pt has a left IJ dialysis cath.
--- NOTE | 2023-11-02 09:07 | CASEMGMT ---
Discharge Planning Updates sent to [place] via [facility]. Wknd phone/fax requested. Tata Nieto DC Planning Asst.
--- NOTE | 2023-11-02 09:59 | CASEMGMT ---
Social Work Green sheet placed on chart in anticipation of weekend discharge. AKILAH Sampson
--- NOTE | 2023-11-02 10:22 | PCM.PROGNOTE ---
Subjective Subjective Patient seen and examined. He felt weak and pale. His Hb has dropped to 6.7. He denies any abdominal pain, dark stools, palpitations, dizziness, nausea, vomiting or diarrhea. Review of systems is otherwise negative. GI on board and he is for EGD today. Tashi remains on hold. Objective Data Objective Data Vital Signs: Vital Signs Temp Pulse Resp BP Pulse Ox O2 Del Method O2 Flow Rate 97.8 F 76 14 117/68 100 Nasal Cannula 2 11/02/23 08:00 11/02/23 10:00 11/02/23 10:00 11/02/23 10:00 11/02/23 10:00 11/02/23 10:00 11/02/23 10:00 FiO2 2 10/31/23 05:00 Oxygen Flow Rate (L/min) 2 Oxygen Delivery Method Nasal Cannula Weight: 202 lb 9.677 oz Body Mass Index (BMI) 29.0 Intake & Output: Intake and Output for Last 24 Hours 10/31/23 11/01/23 11/02/23 23:59 23:59 23:59 Intake Total 450 / 700 680 / 920 240 / 240 Output Total 2730 / 2730 100 / 100 Balance -2280 / -2030 580 / 820 240 / 240 Lab / Micro Data 11/02/23 05:12 11/02/23 05:12 Labs: Laboratory Results - last 24 hr 10/31/23 05:14: RBC Folate Hemolysate 384.0, RBC Folate 1613, Hematocrit 23.8 L 11/01/23 05:24: Iron 23 L, TIBC 171 L, Iron Saturation 13.5 L, Ferritin 397 H 11/02/23 05:12: WBC 4.0 L, RBC 2.51 L, Hgb 6.7 L, Hct 21.6 L, MCV 86.1, MCH 26.7 L, MCHC 31.0 L, RDW Std Deviation 49.0 H, RDW Coeff of Marcos 15.5 H, Plt Count 163, MPV 10.7, Immature Gran % (Auto) 0.500, Neut % (Auto) 76.8 H, Lymph % (Auto) 8.2 L, [place] % (Auto) 13.0 H, Eos % (Auto) 1.0, Baso % (Auto) 0.5, Absolute Neuts (auto) 3.1, Absolute Lymphs (auto) 0.33 L, Nucleated RBC % 0, PT 20.9 H, INR 1.8, APTT 40.2 H, Sodium 133 L, Potassium 5.5 H, Chloride 101, Carbon Dioxide 22.0, Anion Gap 10, BUN 91 H, Creatinine 9.40 H*, Estim Creat Clear Calc 8.45, Est GFR (MDRD) Af Amer 7 L, Est GFR (MDRD) Non-Af 6 L, BUN/Creatinine Ratio 9.7 L, Glucose 103, Calcium 7.3 L 11/02/23 07:38: Crossmatch See Detail Micro: Microbiology 10/29/23 15:16 Fluid - Pleural (Lung) Gram Stain - Final 10/29/23 15:16 Fluid - Pleural (Lung) Body Fluid Culture - Final Culture exhibits no growth. 10/29/23 15:16 Fluid - Pleural (Lung) Anaerobic Culture - Preliminary No growth in 48 hours. Radiography Diagnostic Testing: Radiology Impression Chest X-Ray 11/01/23 13:15 IMPRESSION: Mild volume overload with moderate bilateral pleural effusions. Electronically Signed: Rios Rosario MD at 13:35 EDT , Physical Exam Const alert, oriented x3, no apparent distress and average body habitus Constitutional Narrative: frail General Appearance: cooperative, well kempt and well developed Orientation / Consciousness: awake, oriented to person, oriented to place and oriented to time HEENT normocephalic, head/scalp atraumatic, hearing grossly normal bilaterally, moist oral mucous membranes and oropharynx normal Eyes PERRL, EOMs intact bilaterally and conjunctivae normal Neck no lymphadenopathy, supple, no JVD, thyroid normal and no carotid bruits General: trachea midline Lymph Lymphatic: no lymphadenopathy noted and no lymphedema noted Resp normal respiratory effort, no retractions and no use of accessory muscles Resp Narrative: diminished breath sounds bibasally, on wheezes or crackles. On room air. Auscultation: Negative for rales, rhonchi or wheezes Cardio regular rate, regular rhythm, S1 normal heart sound, S2 normal heart sound, no murmurs, no rub and no gallops GI normal to inspection, nondistended, normoactive bowel sounds, soft to palpation, non-tender and non-distended Extremity normal capillary refill, no clubbing, cyanosis or edema and no calf tenderness Extremity Narrative: has temporary dialysis catheter in place General Extremity: no tenderness to palpation of joints or extremities Skin no rashes or lesions noted General Skin Exam: no breakdown Neuro oriented x3, CN's II-XII intact bilaterally, moves all extremities, no focal motor deficits, no sensory deficits noted and deep tendon reflexes 2+ bilaterally Sensorium / Orientation: awake, alert, oriented to person, oriented to place and oriented to time Speech: speech normal Motor Exam: strength 5/5 throughout and general weakness Psych thought process normal, cooperative and affect normal Appearance: appropriate Assessment & Plan Assessment/Plan (1) ESRD (end stage renal disease) on dialysis: (2) Acute exacerbation of chronic heart failure: PLAN: Plan #Fluid overload due to bilateral pleural effusion and acute renal failure S/p thoracentesis. Had right-sided thoracentesis with removal of 1.36 L of fluid. Pulmonology on board. Nephrology also on board and patient on hemo-dialysis. on hemodialysis #LEELA: dialysis dependent. As above. Nephrology on board. Per nephro, kidney biopsy was consistent with ATN #Hyperkalemia: resolved with dialysis. #History of right IJ thrombus: This was due to temporary dialysis catheter. On Eliquis which was held on account of thoracentesis. Will continue holding eliquis due to anemia today #Iron deficiency anemia Hb today is down to 6.7. Was 7.1 yesterday iron profile showed iron deficiency anemia Iron panel showed iron level of 23 and iron sats of 13.5 and ferritin of 397. GI on board. transfuse with one unit of PRBC today. for EGD today on IV PPI. #Recent history of sepsis due to strep bacteremia: On Ancef. Did receive a dose of Ancef 2 g with dialysis 2 days ago. To get a dose of cefazolin with every dialysis. Stop date for cefazolin is 11/25/2023. #History of CAD: On aspirin and statin as well as ezetimibe. Hold aspirin. DVT prophylaxis: SCDs. Eliquis on hold due to iron deficiency anemia Charges/Coding Visit Charges Inpatient E&M: 93364 [facility] Hosp L3
[2023-11-02] MEDS: Heparin 10,000 UNITS/10 ML Vial IV (11:45)
[2023-11-02] MEDS: Metoprolol Tartrate 25 MG Tablet PO ×2 (12:02→21:15)
--- NOTE | 2023-11-02 12:17 | PCM.PN.REN ---
Subjective Subjective Events noted. Gastroenterology on consult. Objective Data Objective Data Vital Signs: Vital Signs Temp Pulse Resp BP Pulse Ox O2 Del Method O2 Flow Rate 97.9 F 79 18 111/72 100 Nasal Cannula 2 11/02/23 12:13 11/02/23 12:13 11/02/23 12:13 11/02/23 12:13 11/02/23 12:13 11/02/23 12:13 11/02/23 12:13 FiO2 2 10/31/23 05:00 Oxygen Flow Rate (L/min) 2 Oxygen Delivery Method Nasal Cannula Weight: 91.9 kg Body Mass Index (BMI) 29.0 Intake & Output: Intake and Output for Last 24 Hours 10/31/23 11/01/23 11/02/23 23:59 23:59 23:59 Intake Total 450 / 700 680 / 920 240 / 240 Output Total 2730 / 2730 100 / 100 2230 / 2230 Balance -2279 / -2029 580 / 820 -1989 / Lab / Micro Data 11/02/23 05:12 11/02/23 05:12 Labs: Laboratory Results - last 24 hr 10/31/23 05:14: RBC Folate Hemolysate 384.0, RBC Folate 1613, Hematocrit 23.8 L 11/02/23 05:12: WBC 4.0 L, RBC 2.51 L, Hgb 6.7 L, Hct 21.6 L, MCV 86.1, MCH 26.7 L, MCHC 31.0 L, RDW Std Deviation 49.0 H, RDW Coeff of Marcos 15.5 H, Plt Count 163, MPV 10.7, Immature Gran % (Auto) 0.500, Neut % (Auto) 76.8 H, Lymph % (Auto) 8.2 L, [place] % (Auto) 13.0 H, Eos % (Auto) 1.0, Baso % (Auto) 0.5, Absolute Neuts (auto) 3.1, Absolute Lymphs (auto) 0.33 L, Nucleated RBC % 0, PT 20.9 H, INR 1.8, APTT 40.2 H, Sodium 133 L, Potassium 5.5 H, Chloride 101, Carbon Dioxide 22.0, Anion Gap 10, BUN 91 H, Creatinine 9.40 H*, Estim Creat Clear Calc 8.45, Est GFR (MDRD) Af Amer 7 L, Est GFR (MDRD) Non-Af 6 L, BUN/Creatinine Ratio 9.7 L, Glucose 103, Calcium 7.3 L 11/02/23 07:38: Blood Type A POSITIVE, Antibody Screen NEGATIVE, Crossmatch See Detail Micro: Microbiology 10/29/23 15:16 Fluid - Pleural (Lung) Gram Stain - Final 10/29/23 15:16 Fluid - Pleural (Lung) Body Fluid Culture - Final Culture exhibits no growth. 10/29/23 15:16 Fluid - Pleural (Lung) Anaerobic Culture - Preliminary No growth in 48 hours. Radiography Diagnostic Testing: Radiology Impression Chest X-Ray 11/01/23 13:15 IMPRESSION: Mild volume overload with moderate bilateral pleural effusions. Electronically Signed: Rios Rosario MD at 13:35 EDT , Physical Exam Narrative Alert awake oriented x 3 no obvious distress no pallor no icterus no JVD s1s2 no murmurs lungs clear abdomen soft no organomegaly +++ edema no cyanosis Assessment & Plan Assessment/Plan (1) Acute kidney injury: PLAN: Baseline creatinine prior to previous admission was normal. He presented with Streptococcus group G bacteremia. Kidney biopsy was consistent with ATN, no evidence of postinfectious glomerulonephritis. Has been on dialysis since last admission. CT chest shows massive pleural effusions. S/p pleural tap Recent bacteremia. Supposed to be on cefazolin with a stop date of 11/25/2023. Anasarca/fluid overload/pleural effusions. better Thrombocytopenia, resolved Right IJ provoked thrombosis secondary to previous dialysis catheter. On Eliquis HD MWF schedule for now. Seen on dialysis today. kidney biopsy. only 4 glomeruli. sample was sent in wrong medium. IF and EM not done. from the sample it appears ATN/pyelo. anuric. HD for now if no recovery after a month or so will repeat biopsy Anemia. Hb drop today. Gastroenterology on consult. For EGD today
--- NOTE | 2023-11-02 13:20 | PCM.PRE.AN2 ---
ASA Classification* ASA Classification ASA Classification: 3 and E Assessment & Plan Anesthesia* Anesthesia Assessment Anesthesia Assessment: Discussed sedation and/or anesthesia options, risks, benefits, and alternatives with patient/parents/legal guardian/POA. Questions invited. The patient/parents/legal guardian/POA seems to understand and agrees to proceed with anesthesia plan. Reviewed the physical assessment, medical history, allergy history and patient home medications list prior to surgery/procedure/anesthetic and documented any changes. Performed airway and anesthesia risk assessments. Anesthesia Type Anesthesia Type: MAC History Source History Obtained from:: Patient and Chart Anesthesia Focused Assessment* Temperature: 97.9 F Pulse Rate: 79 Blood Pressure: 111/72 Respiratory Rate: 18 Pulse Ox: 100 Oxygen Delivery Method: Nasal Cannula (2 L of oxygen) Fraction of Inspired Oxygen (FIO2): 2 Airway Assessment Mouth opens: >3 cm Mallampati Score: II Teeth Condition: Intact Neck Range of motion (ROM): Full ROM Pertinent Findings EKG Pertinent Findings:: November 02, 2023. Normal sinus rhythm .nonspecific T wave abnormality. Focused Labs Anesthesia Preop lab: CBC WBC 4.0 K/mm3 (4.4-11.0) L 11/02/23 05:12 RBC 2.51 M/mm3 (4.6-6.2) L 11/02/23 05:12 Hgb 6.7 g/dL (13.0-16.5) L 11/02/23 05:12 Hct 21.6 % (40-54) L 11/02/23 05:12 Plt Count 163 K/mm3 (150-450) 11/02/23 05:12 CHEMISTRY Potassium 5.5 mmol/L (3.5-5.1) H 11/02/23 05:12 Sodium 133 mmol/L (136-145) L 11/02/23 05:12 Magnesium 2.5 mg/dL (1.6-2.6) 10/16/23 09:24 Phosphorus 8.8 mg/dL (2.5-4.9) H 10/22/23 05:44 BUN 91 mg/dL (7-18) H 11/02/23 05:12 Creatinine 9.40 mg/dL (0.70-1.30) H* 11/02/23 05:12 Glucose 103 mg/dL (74-106) 11/02/23 05:12 COAG PT 20.9 SECONDS (11.7-14.9) H 11/02/23 05:12 Pre-Assessment Diagnosis/Proposed Procedure Planned Operative Procedure(s): Esophagogastroduodenoscopy with possible cautery and/or injection therapy Anesthesia History Anesthesia History - 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 When Was Last Pacemaker Check QUESTION #4 FULL TEXT: You/Your Family Experience fever (hyperthermia) with Anesthesia Last Oral Intake Last Oral intake: Last Oral Intake NPO since 00:00 11/02/23 10:58 Meds taken in AM with sips of Yes 11/02/23 10:58 water? Meds patient instructed to Metoprolol 11/02/23 10:58 take am of surgery PONV PONV - bar gauger and lubricator tender: PONV - bar gauger and lubricator tender Female HX of Motion Sickness HX of N/V After Surgery Non-Smoker Duration of Surgery greater than 60 minutes Number of Risk Factors PONV Score Height & Weight Height & Weight: Anesthesia: Height & Weight Height 5 ft 10 in 11/02/23 10:58 Weight: 91.9 kg 11/02/23 11:45 Body Mass Index (BMI) 29.0 11/02/23 11:45 Respiratory Assessment Respiratory Assessment - bar gauger and lubricator tender: Respiratory Tract Infection Hx - bar gauger and lubricator tender Hx Respiratory Tract Infection No 11/02/23 10:58 STOP Sleep Apnea STOP Sleep Apnea - bar gauger and lubricator tender: STOP Sleep Apnea - bar gauger and lubricator tender Hx Hypertension Yes 10/31/23 16:27 Hx Sleep Apnea No 10/29/23 05:31 CPAP No 10/12/23 19:39 BIPAP No 10/12/23 19:39 Do you snore loudly (louder No 10/29/23 05:31 than talking or can be heard Do you often feel tired/ No 10/29/23 05:31 fatigued/ sleepy during daytime? Has anyone observed you stop No 10/29/23 05:31 breathing during sleep? STOP Results Negative 10/29/23 05:31 QUESTION #5 FULL TEXT : Do you snore loudly (louder than talking or can be heard through closed doors)? Tobacco Use History Tobacco Use History - bar gauger and lubricator tender: Tobacco Use History - bar gauger and lubricator tender Tobacco Use Smoking Status Never smoker 10/29/23 05:31 Hx Tobacco Use No 10/29/23 05:31 Years Smoking Packs Smoked per Day Smoking Cessation Date was within the last 15 years Hx Smoking Cessation Date Hx Smoking Cessation Counseling Hematologic Medial History Hematologic Hx - bar gauger and lubricator tender: Hematologic Medical Hx - reproductive healthcare assistant Hx of Blood Transfusion No 10/29/23 05:31 Hx of Transfusion in last 3 No 10/29/23 05:31 Months Date of Last Transfusion (if within last 3 months) Ever experience any problems No 10/29/23 05:31 with transfusion(s)? Specify any problems Hx of Preganancy in last 3 N/A 10/29/23 05:31 Months Nurse Filling Out Transfusion [id number] 10/29/23 05:31 & Questions: Date: 10/29/23 10/29/23 05:31 Time: 05:40 10/29/23 05:31 Patient unable to answer at this time (ie. confused, unrespo /Reproduction History /Reproductive History - bar gauger and lubricator tender: /Reproductive Hx- bar gauger and lubricator tender Hx Now No 11/02/23 10:58 Gestational Age (in weeks): EDC: Hx Hx Para Hx Section SAB No 11/02/23 10:58 Active Medications Active Medications: Current Medications Generic Name Dose Route Start Last Admin Trade Name Freq PRN Reason Stop Dose Admin Acetaminophen 650 mg 10/29/23 05:32 Acetaminophen 325 Mg Tablet PO Q6H PRN PRN Pain 1-5/10 Or Fever >100.7 Alteplase, Recombinant 2 mg 11/02/23 07:28 Alteplase 2 Mg/2 Ml Vial IV 11/02/23 19:28 X1 PRN HD catheter dysfunction Apixaban 5 mg 11/01/23 10:00 Apixaban 5 Mg Tablet PO 01/17/24 22:01 BID JIGNA Aspirin 81 mg 10/29/23 08:00 11/01/23 07:46 Aspirin 81 Mg Tab.Chew PO 81 mg DAILY@0800 JIGNA Administration Atorvastatin Calcium 80 mg 10/29/23 22:00 11/01/23 20:42 Atorvastatin Calcium 80 Mg Tablet PO 80 mg QHS JIGNA Administration Ezetimibe 10 mg 10/29/23 10:00 11/01/23 07:46 Ezetimibe 10 Mg Tablet PO 10 mg DAILY JIGNA Administration Hemodialysis Solution 6 bag 11/02/23 07:30 11/02/23 08:15 Pureflow B 2k Dialysis Soln 1 Bag PF 11/02/23 19:30 6 bag UD JIGNA Administration Protocol Heparin Sodium (Porcine) 1,000 - 3,000 units 11/02/23 07:28 11/02/23 11:45 Heparin 10,000 Units/10 Ml Vial IV 11/02/23 19:28 3,000 units X1 PRN Administration HD catheter closing Sodium Chloride 250 mls @ 15 mls/hr 10/29/23 05:33 IV .[id number] PRN Additional IVPB Infusion Sodium Chloride 250 mls @ 15 mls/hr 10/29/23 05:33 IV .[id number] PRN Saline Flush Sodium Chloride 500 mls @ 0 mls/hr 11/02/23 13:15 IV .Q0M JIGNA KVO Melatonin 3 mg 10/29/23 05:32 11/02/23 00:16 Melatonin 3 Mg Tablet PO 3 mg QHS PRN PRN Administration Insomnia Metoprolol Tartrate 25 mg 10/29/23 10:00 11/02/23 12:02 Metoprolol Tartrate 25 Mg Tablet PO 25 mg BID JIGNA Administration Protocol Oxycodone HCl 5 mg 10/29/23 05:12 11/01/23 00:16 Oxycodone 5 Mg Tablet PO 5 mg Q4H PRN PRN Administration Pain Score 6-10/10 Pantoprazole Sodium 40 mg 10/29/23 10:00 11/01/23 20:43 Pantoprazole Sodium 40 Mg Tablet PO 40 mg BID JIGNA Administration Polyethylene Glycol 17 gm 10/29/23 10:00 11/01/23 20:43 Polyethylene Glycol 3350 17 Gm Packet PO Not Given BID JIGNA Senna/Docusate Sodium 2 tablet 10/29/23 10:00 11/01/23 20:43 Senna/Docusate Sodium 1 Tablet PO 2 tablet BID JIGNA Administration Sodium Chloride 10 - 40 ml 10/29/23 05:33 11/02/23 12:02 0.9% Saline Lock 10 Ml Syringe IV 10 ml UD PRN Administration SALINE FLUSH Sodium Chloride 1,000 ml 11/02/23 07:30 11/02/23 08:14 0.9% Normal Saline 1,000 Ml Iv.Soln. OPERA.SITE 11/02/23 19:28 1,000 ml X1 JIGNA Administration Sodium Chloride 200 ml 11/02/23 07:28 0.9% Normal Saline 1,000 Ml Iv.Soln. 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 Essential (primary) hypertension Non-rheumatic aortic stenosis Syncope and collapse Hyperlipidemia Atherosclerotic heart disease of [place]' coronary artery with other forms of angina pectoris Encounter for long-term current use of high risk medication abnormal stress test Angina pectoris Exertional chest pain URI (upper respiratory infection) Home Medications ?Medication ?Instructions ?Recorded ?Last Taken ?Type aspirin 81 mg chewable tablet 81 mg PO DAILY@0800 HEALTH 01/23/14 10/10/23 History atorvastatin 80 mg tablet 80 mg PO QHS CHOLESTEROL #90 tabs 05/15/22 10/10/23 Rx ezetimibe 10 mg tablet 10 mg PO DAILY CHOLESTEROL #90 tabs 05/15/22 10/10/23 Rx cefazolin 2 gram intravenous 2 g IV .see below 33 days 10/23/23 Unknown Rx solution acetaminophen 325 mg tablet 650 mg (2 x 325 mg) PO Q6H PRN PRN 10/25/23 Unknown Rx Pain 1-10 Or Fever >100.7 #0 tabs apixaban 5 mg tablet (Eliquis) 10 mg (2 x 5 mg) PO BID #0 tabs 10/25/23 Unknown Rx melatonin 3 mg tablet 3 mg PO QHS PRN PRN Insomnia #0 10/25/23 Unknown Rx tabs metoprolol tartrate 25 mg tablet 25 mg PO BID #0 tabs 10/25/23 Unknown Rx pantoprazole 40 mg tablet,delayed 40 mg PO BID #0 tabs 10/25/23 Unknown Rx release polyethylene glycol 3350 17 17 g PO BID #119 grams 10/25/23 Unknown Rx gram/dose oral powder (Miralax) sennosides 8.6 mg-docusate sodium 2 tab PO BID #0 tabs 10/25/23 Unknown Rx 50 mg tablet (Stimulant Laxative Plus) oxycodone 5 mg tablet 5 mg PO Q4H PRN PRN Pain Score 4-10 10/28/23 Unknown History Allergy/AdvReac Type Severity Reaction Status Date / Time No Known Allergies Allergy Verified 10/28/23 23:34 Family History Father Heart disease Myocardial infarction Hypertension Brother Hypertension Sister Heart disease Myocardial infarction Surgical History (Updated 11/02/23 @ 00:01 by Dale Melendez) History of aortic valve replacement (03/03/19) History of coronary artery stent placement (12/31/18) H/O coronary artery bypass surgery (09/18/02) History of tonsillectomy History of hernia repair Social History Smoking Status: Never smoker alcohol intake: never substance use type: does not use caffeine: No what type of physical activity do you participate in: walking frequency: daily Review of Systems (Anesthesia) ROS Narrative System reviewed and no additional complaints, except as documented. Review of Systems ROS Unobtainable: Denies due to encephalopathy, due to endotracheal tube, due to mental condition, due to mental status or other
--- NOTE | 2023-11-02 13:57 | PCM.POST.ANE ---
Anesthesia: Postop Eval I Current Vital Signs Temperature: 97.2 F Pulse Rate: 84 Blood Pressure: 113/73 Respiratory Rate: 18 Pulse Ox: 95 Oxygen Delivery Method: Nasal Cannula Oxygen Flow Rate (L/min): 2 Assessment Airway patent: Yes Spontaneous unlabored respirations: Yes Mental status: Asleep nausea: No Vomiting: No Anesthesia Complication: No Fluid Hydration Crystalloid volume administer (ml): 50 Total IV fluid infused: 50 Progress Note Anesthesia document: Postop Eval 1 completed: Yes
--- NOTE | 2023-11-02 14:14 | POSTOPAN2_ITS ---
Anesthesia Postop Eval I Sum Postop Eval Completion status Anesthesia document: Postop Eval 1 completed: Yes Anesthesia Postop Eval I Summary Anesthesia Postop Eval I Summary: Anesthesia Postop Eval I: Assessment Summary Airway patent Yes 11/02/23 13:58 HVAC R TECH.NICOLOBTanner Spontaneous unlabored Yes 11/02/23 13:58 HVAC R TECH.LINDA respirations Mental status Asleep 11/02/23 13:58 HVAC R TECH.LINDA nausea No 11/02/23 13:58 HVAC R TECH.LINDA Vomiting No 11/02/23 13:58 HVAC R TECH.LINDA Anesthesia Postop Eval I: Fluid Summary Crystalloid volume administer 50 11/02/23 13:58 HVAC R TECH.LINDA (ml) Colloids volume administered ( ml) Blood Product volume administered (ml) Total IV fluid infused 50 11/02/23 13:58 HVAC R TECHDEJA Anesthesia Postop Eval I: Summary Notes Anesthesia Complication No 11/02/23 13:58 HVAC R TECHDEJA Anesthesia Complication Comment: Post-operative progress note Anesthesia: Postop Eval II Evaluation Mental status: Awake and Calm Pain Level: 0 nausea: No Vomiting: No Complications Anesthesia Complication: No
--- NOTE | 2023-11-02 14:14 | PCM.POSTANE2 ---
Anesthesia Postop Eval I Sum Postop Eval Completion status Anesthesia document: Postop Eval 1 completed: Yes Anesthesia Postop Eval I Summary Anesthesia Postop Eval I Summary: Anesthesia Postop Eval I: Assessment Summary Airway patent Yes 11/02/23 13:58 PHARMACY DELIVERY DRIVER.NICOLOBTanner Spontaneous unlabored Yes 11/02/23 13:58 PHARMACY DELIVERY DRIVER.LINDA respirations Mental status Asleep 11/02/23 13:58 PHARMACY DELIVERY DRIVER.LINDA nausea No 11/02/23 13:58 PHARMACY DELIVERY DRIVER.LINDA Vomiting No 11/02/23 13:58 PHARMACY DELIVERY DRIVER.LINDA Anesthesia Postop Eval I: Fluid Summary Crystalloid volume administer 50 11/02/23 13:58 PHARMACY DELIVERY DRIVER.LINDA (ml) Colloids volume administered ( ml) Blood Product volume administered (ml) Total IV fluid infused 50 11/02/23 13:58 PHARMACY DELIVERY DRIVERDEJA Anesthesia Postop Eval I: Summary Notes Anesthesia Complication No 11/02/23 13:58 PHARMACY DELIVERY DRIVERDEJA Anesthesia Complication Comment: Post-operative progress note Anesthesia: Postop Eval II Evaluation Mental status: Awake and Calm Pain Level: 0 nausea: No Vomiting: No Complications Anesthesia Complication: No
[2023-11-02] MEDS: Polyethylene Glycol 3350 17 GM PACKET PO ×2 (15:44→21:16)
[2023-11-02] MEDS: Pantoprazole Sodium 40 MG Tablet PO ×2 (15:44→21:17)
[2023-11-02] MEDS: Senna/Docusate Sodium 1 Tablet 2 TABLET PO ×2 (15:45→21:16)
[2023-11-02] MEDS: Ezetimibe 10 MG Tablet PO (15:45)
--- NOTE | 2023-11-02 15:58 | NURSING ---
Morning medications given late because pt was getting dialysis and an EGD today.
--- NOTE | 2023-11-02 17:49 | OP.EGD_ITS ---
Patient Name: Jacob Landa Procedure Date: 11/02/2023 1:39 PM Date of : 1955 Age: 68 Procedure: Upper GI endoscopy Indications: Iron deficiency anemia, Melena Providers: Bud Beck DO Medicines: Monitored Anesthesia Care Patient Profile: This is a 68 year old male. Refer to note in patient chart for documentation of history and physical. Patient has symptoms of acute nausea and acute vomiting. Complications: No immediate complications. Procedure: Pre-Anesthesia Assessment: - Prior to the procedure, a History and Physical was performed, and patient medications and allergies were reviewed. The patient is competent. The risks and benefits of the procedure and the sedation options and risks were discussed with the patient. All questions were answered and informed consent was obtained. Patient identification and proposed procedure were verified by the physician in the pre-procedure area. Mental Status Examination: alert and oriented. Airway Examination: normal oropharyngeal airway and neck mobility. Respiratory Examination: clear to auscultation. CV Examination: normal. Prophylactic Antibiotics: The patient does not require prophylactic antibiotics. Prior Anticoagulants: The patient has taken no anticoagulant or antiplatelet agents. ASA Grade Assessment: II - A patient with mild systemic disease. After reviewing the risks and benefits, the patient was deemed in satisfactory condition to undergo the procedure. The anesthesia plan was to use monitored anesthesia care (MAC). Immediately prior to administration of medications, the patient was re-assessed for adequacy to receive sedatives. The heart rate, respiratory rate, oxygen saturations, blood pressure, adequacy of pulmonary ventilation, and response to care were monitored throughout the procedure. The physical status of the patient was re-assessed after the procedure. After obtaining informed consent, the endoscope was passed under direct vision. Throughout the procedure, the patient's blood pressure, pulse, and oxygen saturations were monitored continuously. The gastroscope was introduced through the mouth, and advanced to the second part of duodenum. The upper GI endoscopy was accomplished without difficulty. The patient tolerated the procedure well. Scope In: 1:44:26 PM Scope Out: 1:48:42 PM Total Procedure Duration Time 0 hours 4 minutes 16 seconds Findings: The examined esophagus was normal. A small hiatal hernia was present. One oozing linear gastric ulcer with pigmented material was found in the cardia. The lesion was 6 mm in largest dimension. Coagulation for hemostasis using heater probe was successful. Estimated blood loss was minimal. Two non-bleeding linear gastric ulcers with no stigmata of bleeding were found at the pylorus. The largest lesion was 5 mm in largest dimension. No gross lesions were noted in the duodenal bulb. An esophago-gastric anastomosis was found in the upper third of the esophagus. A medium amount of food (residue) was found in the gastric body. Impression: - Normal esophagus. - Small hiatal hernia. - Oozing gastric ulcer with pigmented material. Treated with a heater probe. - Non-bleeding gastric ulcers with no stigmata of bleeding. - No gross lesions in the duodenal bulb. - No specimens collected. Recommendation: - Return patient to hospital [facility] for ongoing care. - Advance diet as tolerated. - Continue present medications. - Use Protonix (pantoprazole) 40 mg IV BID. Procedure Code(s): --- Professional --- 78123, Esophagogastroduodenoscopy, flexible, transoral; with control of bleeding, any method CPT copyright 2021 [employer] [place] [employer]. All rights reserved. The codes documented in this report are preliminary and upon mold tooler review may be revised to meet current compliance requirements. Bud Beck DO 11/02/2023 5:49:03 PM This report has been signed electronically. Number of Addenda: 0 Note Initiated On: 11/02/2023 1:39 PM
--- NOTE | 2023-11-02 17:49 | OP.CCLET_ITS ---
11/02/2023 Yaw Singh MD Re : Upper GI endoscopy procedure for Jacob Landa Dear Dr. Singh This procedure was performed on Thursday, November 02, 2023. My impressions and recommendations are as follows: Impressions : - Normal esophagus. - Small hiatal hernia. - Oozing gastric ulcer with pigmented material. Treated with a heater probe. - Non-bleeding gastric ulcers with no stigmata of bleeding. - No gross lesions in the duodenal bulb. - No specimens collected. Recommendations : - Return patient to hospital [facility] for ongoing care. - Advance diet as tolerated. - Continue present medications. - Use Protonix (pantoprazole) 40 mg IV BID. My findings are described in the full procedure note, which is enclosed. If I can be of further assistance, please feel free to contact me at . Sincerely, Bud Beck, 11/02/2023 5:49:03 PM This report has been signed electronically.
--- NOTE | 2023-11-02 18:32 | NURSING ---
Reviewed and agreed on all charting with Kinsey Ayala RN
[2023-11-02] MEDS: Atorvastatin Calcium 80 MG Tablet PO (21:18)
[2023-11-03] VITALS (12 sets, daily range): BP systolic 115–131; BP diastolic 71–78; PULSE 81–106; RESP 20–24; TEMP 36.6–36.9; O2SAT 95–100
[2023-11-03 07:47] LABS: Absolute Neutrophil Count 3.7 X10^3/uL (2.0-7.7); Basophil# 0.01 X10^3/uL; Basophil% 0.2 % (0-1); Eosinophil# 0.04 X10^3/uL; Eosinophils% 0.8 % (0-5); Hematocrit 24.9 % (40-54); Hemoglobin 8.1 g/dL (13.0-16.5); Lymphocyte % 8.4 % (19-41); Mean Corp Hgb Conc 32.5 g/dL (32-36); Mean Corpuscular Hgb 28.1 pg (27.0-32.0); Mean Corpuscular Volume 86.5 fL (80-94); Mean Platelet Vol. 10.4 fl (6.2-12.0); Monocyte# 0.65 X10^3/uL; Monocyte% 13.6 % (0-10); NRBC Flagged by Analyzer 0 % (0-5); Neutrophil # 3.67 X10^3/uL (2.7-7.7); Neutrophil % 76.6 % (47-70); POSITIVE DIFFERENTIAL YES; Platelet Count 202 K/mm3 (150-450); RBC Distribution Width CV 15.2 % (11.6-14.6); RBC Distribution Width SD 48.3 fl (35.1-43.9); Red Blood Count 2.88 M/mm3 (4.6-6.2); White Blood Count 4.8 K/mm3 (4.4-11.0)
[2023-11-03 08:38] LABS: Anion Gap 5 (5-15); BUN 72 mg/dL (7-18); BUN/Creat Ratio 9.2 RATIO (10-20); Calcium,Total 7.7 mg/dL (8.5-10.1); Chloride 102 mmol/L (98-107); Creatinine, Serum 7.83 mg/dL (0.70-1.30); EST Glomerular Filtration Rate 7 mL/min (>60); Est Glom Filt Rate - Afr Amer 9 mL/min (>60); Estimated Creatinine Clearance 10.15 ml/min; Glucose 93 mg/dL (74-106); Potassium 5.4 mmol/L (3.5-5.1); Sodium Level 134 mmol/L (136-145)
[2023-11-03] MEDS: Metoprolol Tartrate 25 MG Tablet PO ×2 (09:06→21:35)
[2023-11-03] MEDS: Senna/Docusate Sodium 1 Tablet 2 TABLET PO ×2 (09:07→21:36)
[2023-11-03] MEDS: Pantoprazole Sodium 40 MG Tablet PO ×2 (09:07→21:35)
[2023-11-03] MEDS: Ezetimibe 10 MG Tablet PO (09:07)
[2023-11-03] MEDS: Polyethylene Glycol 3350 17 GM PACKET PO ×2 (09:07→21:35)
[2023-11-03] MEDS: 0.9% Saline Lock 10 ML Syringe IV ×2 (09:11→21:36)
--- NOTE | 2023-11-03 10:12 | PN_ITS ---
Subjective Subjective Patient seen and examined. He had no active complaints. Review of systems is otherwise negative. He was transfused with one unit of PRBCs yesterday. Hb today is 8.1. Objective Data Objective Data Vital Signs: Vital Signs Temp Pulse Resp BP Pulse Ox O2 Del Method O2 Flow Rate 98.0 F 87 20 H 126/71 H 99 Nasal Cannula 2 11/03/23 08:53 11/03/23 09:06 11/03/23 08:53 11/03/23 08:53 11/03/23 08:53 11/03/23 08:53 11/03/23 08:53 FiO2 2 11/02/23 13:31 Oxygen Flow Rate (L/min) 2 Oxygen Delivery Method Nasal Cannula Weight: 202 lb 9.677 oz Body Mass Index (BMI) 29.0 Intake & Output: Intake and Output for Last 24 Hours 11/01/23 11/02/23 11/03/23 23:59 23:59 23:59 Intake Total 680 / 920 491 / 611 120 / 120 Output Total 100 / 100 2330 / 2330 0 / 0 Balance 580 / 820 -1839 / -1719 120 / 120 Lab / Micro Data 11/03/23 06:05 11/03/23 06:15 Labs: Laboratory Results - last 24 hr 11/02/23 07:38: Blood Type A POSITIVE, Antibody Screen NEGATIVE, Crossmatch See Detail 11/03/23 06:05: WBC 4.8, RBC 2.88 L, Hgb 8.1 L, Hct 24.9 L, MCV 86.5, MCH 28.1, MCHC 32.5, RDW Std Deviation 48.3 H, RDW Coeff of Marcos 15.2 H, Plt Count 202, MPV 10.4, Immature Gran % (Auto) 0.400, Neut % (Auto) 76.6 H, Lymph % (Auto) 8.4 L, [place] % (Auto) 13.6 H, Eos % (Auto) 0.8, Baso % (Auto) 0.2, Absolute Neuts (auto) 3.7, Absolute Lymphs (auto) 0.40 L, Nucleated RBC % 0 11/03/23 06:15: Sodium 134 L, Potassium 5.4 H, Chloride 102, Carbon Dioxide 27.0, Anion Gap 5, BUN 72 H, Creatinine 7.83 H*, Estim Creat Clear Calc 10.15, E st GFR (MDRD) Af Amer 9 L, Est GFR (MDRD) Non-Af 7 L, BUN/Creatinine Ratio 9.2 L , Glucose 93, Calcium 7.7 L Micro: Microbiology 10/29/23 15:16 Fluid - Pleural (Lung) Gram Stain - Final 10/29/23 15:16 Fluid - Pleural (Lung) Body Fluid Culture - Final Culture exhibits no growth. 10/29/23 15:16 Fluid - Pleural (Lung) Anaerobic Culture - Preliminary No growth in 48 hours. Physical Exam Const alert, oriented x3, no apparent distress and average body habitus Constitutional Narrative: frail General Appearance: cooperative Orientation / Consciousness: awake, oriented to person, oriented to place and oriented to time HEENT normocephalic, head/scalp atraumatic, hearing grossly normal bilaterally, moist oral mucous membranes and oropharynx normal Eyes PERRL, EOMs intact bilaterally and conjunctivae normal Neck no lymphadenopathy, supple, no JVD, thyroid normal and no carotid bruits General: trachea midline Lymph Lymphatic: no lymphadenopathy noted and no lymphedema noted Resp normal respiratory effort, no retractions and no use of accessory muscles Resp Narrative: diminished breath sounds bibasally, on wheezes or crackles. On room air. Auscultation: Negative for rales, rhonchi or wheezes Cardio regular rate, regular rhythm, S1 normal heart sound, S2 normal heart sound, no murmurs, no rub and no gallops GI normal to inspection, nondistended, normoactive bowel sounds, soft to palpation, non-tender and non-distended Extremity normal capillary refill, no clubbing, cyanosis or edema and no calf tenderness Extremity Narrative: has temporary dialysis catheter in place General Extremity: no tenderness to palpation of joints or extremities Skin no rashes or lesions noted General Skin Exam: no breakdown Neuro oriented x3, CN's II-XII intact bilaterally, moves all extremities, no focal motor deficits, no sensory deficits noted and deep tendon reflexes 2+ bilaterally Sensorium / Orientation: awake, alert, oriented to person, oriented to place and oriented to time Speech: speech normal Motor Exam: strength 5/5 throughout and general weakness Psych thought process normal, cooperative and affect normal Appearance: appropriate Assessment & Plan Assessment/Plan (1) ESRD (end stage renal disease) on dialysis: (2) Acute exacerbation of chronic heart failure: PLAN: Plan #Fluid overload due to bilateral pleural effusion and acute renal failure * S/p thoracentesis. * Had right-sided thoracentesis with removal of 1.36 L of fluid. Pulmonology on board. Nephrology also on board and patient on hemo-dialysis. * on hemodialysis #LEELA: dialysis dependent. As above. Nephrology on board. Per nephro, kidney biopsy was consistent with ATN #Hyperkalemia: resolved with dialysis. #History of right IJ thrombus: This was due to temporary dialysis catheter. On Eliquis which was held on account of thoracentesis. Will continue holding eliquis due to anemia today #Iron deficiency anemia * Hb is 8.1. Was transfused with 1 unit of PRBC yesterday. * iron profile showed iron deficiency anemia * Iron panel showed iron level of 23 and iron sats of 13.5 and ferritin of 397. * GI on board. * EGD showed oozing gastric ulcer with pigmented material, treated with a heater probe, and nonbleeding gastric ulcers with no stigmata of bleeding. * on IV PPI. Place on oral PPI today * * #Recent history of sepsis due to strep bacteremia: On Ancef. Did receive a dose of Ancef 2 g with dialysis 2 days ago. To get a dose of cefazolin with every dialysis. Stop date for cefazolin is 11/25/2023. #History of CAD: On aspirin and statin as well as ezetimibe. Hold aspirin. DVT prophylaxis: SCDs. Eliquis on hold due to iron deficiency anemia Charges/Coding Visit Charges Inpatient E&M: 28729 Subs Hosp L2
--- NOTE | 2023-11-03 18:10 | MDS.RN ---
Reviewed and agreed on charting with Kinsey Ayala RN
[2023-11-03] MEDS: Atorvastatin Calcium 80 MG Tablet PO (21:35)
[2023-11-04] VITALS (10 sets, daily range): BP systolic 115–124; BP diastolic 64–80; PULSE 75–87; RESP 20–24; TEMP 36.6–37; O2SAT 94–100
[2023-11-04 05:12] LABS: Absolute Lymphocyte Count 0.38 X10^3/uL (0.83-4.51); Absolute Neutrophil Count 3.1 X10^3/uL (2.0-7.7); Basophil# 0.02 X10^3/uL; Basophil% 0.5 % (0-1); Eosinophil# 0.07 X10^3/uL; Eosinophils% 1.7 % (0-5); Hematocrit 23.7 % (40-54); Hemoglobin 7.5 g/dL (13.0-16.5); Lymphocyte # 0.38 X10^3/ul (0.83-4.51); Mean Corp Hgb Conc 31.6 g/dL (32-36); Mean Corpuscular Hgb 27.4 pg (27.0-32.0); Mean Corpuscular Volume 86.5 fL (80-94); Mean Platelet Vol. 10.5 fl (6.2-12.0); Monocyte# 0.59 X10^3/uL; NRBC Flagged by Analyzer 0 % (0-5); Neutrophil # 3.12 X10^3/uL (2.7-7.7); Neutrophil % 73.9 % (47-70); POSITIVE DIFFERENTIAL YES; Platelet Count 207 K/mm3 (150-450); RBC Distribution Width CV 15.2 % (11.6-14.6); RBC Distribution Width SD 48.1 fl (35.1-43.9); Red Blood Count 2.74 M/mm3 (4.6-6.2); White Blood Count 4.2 K/mm3 (4.4-11.0)
[2023-11-04 05:43] LABS: Anion Gap 8 (5-15); BUN 87 mg/dL (7-18); BUN/Creat Ratio 9.6 RATIO (10-20); Calcium,Total 7.6 mg/dL (8.5-10.1); Chloride 102 mmol/L (98-107); Creatinine, Serum 9.02 mg/dL (0.70-1.30); EST Glomerular Filtration Rate 6 mL/min (>60); Est Glom Filt Rate - Afr Amer 8 mL/min (>60); Estimated Creatinine Clearance 8.81 ml/min; Glucose 112 mg/dL (74-106); Potassium 5.3 mmol/L (3.5-5.1); Sodium Level 134 mmol/L (136-145)
[2023-11-04] MEDS: 0.9% Saline Lock 10 ML Syringe IV ×2 (08:16→17:46)
[2023-11-04] MEDS: Metoprolol Tartrate 25 MG Tablet PO ×2 (09:03→21:22)
[2023-11-04] MEDS: APIXABAN 5 MG TABLET PO ×2 (09:03→21:21)
[2023-11-04] MEDS: Pantoprazole Sodium 40 MG Tablet PO ×2 (09:04→21:32)
[2023-11-04] MEDS: Senna/Docusate Sodium 1 Tablet 2 TABLET PO ×2 (09:04→21:21)
[2023-11-04] MEDS: Ezetimibe 10 MG Tablet PO (09:04)
--- NOTE | 2023-11-04 11:11 | PN.RENAL_ITS ---
Subjective Subjective No new complaints. Objective Data Objective Data Vital Signs: Vital Signs Temp Pulse Resp BP Pulse Ox O2 Del Method O2 Flow Rate 97.9 F 85 24 H 120/71 97 Room Air 2 11/04/23 08:05 11/04/23 09:03 11/04/23 08:05 11/04/23 09:03 11/04/23 10:20 11/04/23 08:05 11/04/23 08:05 FiO2 2 11/02/23 13:31 Oxygen Flow Rate (L/min) 2 Oxygen Delivery Method Room Air Weight: 91.9 kg Body Mass Index (BMI) 29.0 Intake & Output: Intake and Output for Last 24 Hours 11/02/23 11/03/23 11/04/23 23:59 23:59 23:59 Intake Total 491 / 611 670 / 730 120 / 120 Output Total 2330 / 2330 0 / 0 0 / 0 Balance -1839 / -1719 670 / 730 120 / 120 Lab / Micro Data 11/04/23 04:30 11/04/23 04:30 Labs: Laboratory Results - last 24 hr 11/04/23 04:30: WBC 4.2 L, RBC 2.74 L, Hgb 7.5 L, Hct 23.7 L, MCV 86.5, MCH 27.4, MCHC 31.6 L, RDW Std Deviation 48.1 H, RDW Coeff of [place] 15.2 H, Plt Count 207, MPV 10.5, Immature Gran % (Auto) 0.900, Neut % (Auto) 73.9 H, Lymph % (Auto) 9.0 L, [place] % (Auto) 14.0 H, Eos % (Auto) 1.7, Baso % (Auto) 0.5, Absolute Neuts (auto) 3.1, Absolute Lymphs (auto) 0.38 L, Nucleated RBC % 0, S odium 134 L, Potassium 5.3 H, Chloride 102, Carbon Dioxide 24.0, Anion Gap 8, B UN 87 H, Creatinine 9.02 H*, Estim Creat Clear Calc 8.81, Est GFR (MDRD) Af Amer 8 L, Est GFR (MDRD) Non-Af 6 L, BUN/Creatinine Ratio 9.6 L, Glucose 112 H, C alcium 7.6 L Micro: Microbiology 10/29/23 15:16 Fluid - Pleural (Lung) Gram Stain - Final 10/29/23 15:16 Fluid - Pleural (Lung) Body Fluid Culture - Final Culture exhibits no growth. 10/29/23 15:16 Fluid - Pleural (Lung) Anaerobic Culture - Final No growth in 5 days. Physical Exam Narrative Alert awake oriented x 3 no obvious distress no pallor no icterus no JVD s1s2 no murmurs lungs clear abdomen soft no organomegaly +++ edema no cyanosis Assessment & Plan Assessment/Plan (1) Acute kidney injury: PLAN: Baseline creatinine prior to previous admission was normal. He presented with Streptococcus group G bacteremia. Kidney biopsy was consistent with ATN, no evidence of postinfectious glomerulonephritis. Has been on dialysis since last admission. CT chest shows massive pleural effusions. S/p pleural tap Recent bacteremia. Supposed to be on cefazolin with a stop date of 11/25/2023. Anasarca/fluid overload/pleural effusions. better Thrombocytopenia, resolved Right IJ provoked thrombosis secondary to previous dialysis catheter. On Eliquis HD MWF schedule for now. kidney biopsy. only 4 glomeruli. sample was sent in wrong medium. IF and EM not done. from the sample it appears ATN/pyelo. anuric. HD for now if no recovery after a month or so will repeat biopsy Anemia. Gastroenterology on consult.
--- NOTE | 2023-11-04 14:41 | PN_ITS ---
Subjective Subjective Patient seen and examined. He felt well and had no complaints. Review of systems otherwise negative. Eliquis has been resumed today. Review of systems otherwise negative. Objective Data Objective Data Vital Signs: Vital Signs Temp Pulse Resp BP Pulse Ox O2 Del Method O2 Flow Rate 97.8 F 80 20 H 115/74 96 Room Air 2 11/04/23 12:00 11/04/23 12:00 11/04/23 12:00 11/04/23 12:00 11/04/23 12:00 11/04/23 12:00 11/04/23 08:05 FiO2 2 11/02/23 13:31 Oxygen Flow Rate (L/min) 2 Oxygen Delivery Method Room Air Weight: 202 lb 9.677 oz Body Mass Index (BMI) 29.0 Intake & Output: Intake and Output for Last 24 Hours 11/02/23 11/03/23 11/04/23 23:59 23:59 23:59 Intake Total 491 / 611 670 / 730 400 / 400 Output Total 2330 / 2330 0 / 0 100 / 100 Balance -1839 / -1719 670 / 730 300 / 300 Lab / Micro Data 11/04/23 04:30 11/04/23 04:30 Labs: Laboratory Results - last 24 hr 11/04/23 04:30: WBC 4.2 L, RBC 2.74 L, Hgb 7.5 L, Hct 23.7 L, MCV 86.5, MCH 27.4, MCHC 31.6 L, RDW Std Deviation 48.1 H, RDW Coeff of [place] 15.2 H, Plt Count 207, MPV 10.5, Immature Gran % (Auto) 0.900, Neut % (Auto) 73.9 H, Lymph % (Auto) 9.0 L, [place] % (Auto) 14.0 H, Eos % (Auto) 1.7, Baso % (Auto) 0.5, Absolute Neuts (auto) 3.1, Absolute Lymphs (auto) 0.38 L, Nucleated RBC % 0, S odium 134 L, Potassium 5.3 H, Chloride 102, Carbon Dioxide 24.0, Anion Gap 8, B UN 87 H, Creatinine 9.02 H*, Estim Creat Clear Calc 8.81, Est GFR (MDRD) Af Amer 8 L, Est GFR (MDRD) Non-Af 6 L, BUN/Creatinine Ratio 9.6 L, Glucose 112 H, C alcium 7.6 L Micro: Microbiology 10/29/23 15:16 Fluid - Pleural (Lung) Gram Stain - Final 10/29/23 15:16 Fluid - Pleural (Lung) Body Fluid Culture - Final Culture exhibits no growth. 10/29/23 15:16 Fluid - Pleural (Lung) Anaerobic Culture - Final No growth in 5 days. Physical Exam Const alert, oriented x3, no apparent distress, average body habitus and healthy appearing Constitutional Narrative: frail General Appearance: cooperative Orientation / Consciousness: awake HEENT normocephalic, head/scalp atraumatic, hearing grossly normal bilaterally, moist oral mucous membranes and oropharynx normal Eyes PERRL, EOMs intact bilaterally and conjunctivae normal Neck no lymphadenopathy, supple, no JVD, thyroid normal and no carotid bruits General: trachea midline Lymph Lymphatic: no lymphadenopathy noted and no lymphedema noted Resp normal respiratory effort, no retractions and no use of accessory muscles Resp Narrative: diminished breath sounds bibasally, on wheezes or crackles. On room air. Auscultation: Negative for rales, rhonchi or wheezes Cardio regular rate, regular rhythm, S1 normal heart sound, S2 normal heart sound, no murmurs, no rub and no gallops GI normal to inspection, nondistended, normoactive bowel sounds, soft to palpation, non-tender and non-distended Extremity normal capillary refill, no clubbing, cyanosis or edema and no calf tenderness Extremity Narrative: has temporary dialysis catheter in place General Extremity: no tenderness to palpation of joints or extremities Skin no rashes or lesions noted General Skin Exam: no breakdown Neuro oriented x3, CN's II-XII intact bilaterally, moves all extremities, no focal motor deficits, no sensory deficits noted and deep tendon reflexes 2+ bilaterally Sensorium / Orientation: awake, alert, oriented to person, oriented to place and oriented to time Speech: speech normal Motor Exam: strength 5/5 throughout and general weakness Psych thought process normal, cooperative and affect normal Appearance: appropriate Assessment & Plan Assessment/Plan (1) ESRD (end stage renal disease) on dialysis: (2) Acute exacerbation of chronic heart failure: PLAN: Plan #Fluid overload due to bilateral pleural effusion and acute renal failure * S/p thoracentesis. * Had right-sided thoracentesis with removal of 1.36 L of fluid. Pulmonology on board. Nephrology also on board and patient on hemo-dialysis. * on hemodialysis #LEELA: * dialysis dependent. As above. Nephrology on board. * Per nephro, kidney biopsy was consistent with ATN * per nephro, to continue with dialysis MWF. #Hyperkalemia: resolved with dialysis. #History of right IJ thrombus: * This was due to temporary dialysis catheter. * On Eliquis which was held on account of thoracentesis. eliquis resumed today. * He did say he coughed up some blood. * I looked at the tissue and was just scant blood mixed with sputum. Will resume Eliquis and monitor closely. #Iron deficiency anemia * Was transfused with 1 unit of PRBC during this admission * iron profile showed iron deficiency anemia * Iron panel showed iron level of 23 and iron sats of 13.5 and ferritin of 397. * GI on board. * EGD showed oozing gastric ulcer with pigmented material, treated with a heater probe, and nonbleeding gastric ulcers with no stigmata of bleeding. * on IV PPI. Place on oral PPI * * #Recent history of sepsis due to strep bacteremia: On Ancef. Did receive a dose of Ancef 2 g with dialysis 2 days ago. To get a dose of cefazolin with every dialysis. Stop date for cefazolin is 11/25/2023. #History of CAD: On aspirin and statin as well as ezetimibe. Hold aspirin. DVT prophylaxis: SCDs. Eliquis on hold due to iron deficiency anemia Disposition: Anticipate discharge tomorrow if remains hemodynamically stable. Charges/Coding Visit Charges Inpatient E&M: 83646 Subs Hosp L2
[2023-11-04] MEDS: Ondansetron 4 MG/2 ML Vial IV (17:43)
[2023-11-04] MEDS: Atorvastatin Calcium 80 MG Tablet PO (21:22)
[2023-11-05] VITALS (16 sets, daily range): BP systolic 116–183; BP diastolic 68–92; PULSE 75–91; RESP 16–18; TEMP 36.1–36.8; O2SAT 95–98; BMI 29.0; BMI 28.8
[2023-11-05 06:14] LABS: Absolute Lymphocyte Count 0.44 X10^3/uL (0.83-4.51); Absolute Neutrophil Count 3.9 X10^3/uL (2.0-7.7); Basophil# 0.03 X10^3/uL; Basophil% 0.6 % (0-1); Eosinophil# 0.08 X10^3/uL; Eosinophils% 1.6 % (0-5); Hematocrit 26.2 % (40-54); Hemoglobin 8.1 g/dL (13.0-16.5); Lymphocyte # 0.44 X10^3/ul (0.83-4.51); Lymphocyte % 8.8 % (19-41); Mean Corp Hgb Conc 30.9 g/dL (32-36); Mean Corpuscular Hgb 27.2 pg (27.0-32.0); Mean Corpuscular Volume 87.9 fL (80-94); Mean Platelet Vol. 10.3 fl (6.2-12.0); Monocyte# 0.51 X10^3/uL; Monocyte% 10.2 % (0-10); NRBC Flagged by Analyzer 0 % (0-5); Neutrophil # 3.88 X10^3/uL (2.7-7.7); Neutrophil % 77.8 % (47-70); POSITIVE DIFFERENTIAL YES; Platelet Count 237 K/mm3 (150-450); RBC Distribution Width CV 15.3 % (11.6-14.6); RBC Distribution Width SD 49.1 fl (35.1-43.9); Red Blood Count 2.98 M/mm3 (4.6-6.2)
[2023-11-05 06:38] LABS: Anion Gap 9 (5-15); BUN 95 mg/dL (7-18); BUN/Creat Ratio 9.4 RATIO (10-20); Calcium,Total 7.7 mg/dL (8.5-10.1); Chloride 100 mmol/L (98-107); EST Glomerular Filtration Rate 6 mL/min (>60); Est Glom Filt Rate - Afr Amer 7 mL/min (>60); Estimated Creatinine Clearance 7.87 ml/min; Glucose 98 mg/dL (74-106); Sodium Level 132 mmol/L (136-145)
[2023-11-05] MEDS: 0.9% Normal Saline 1,000 ML IV.SOLN. 1000 ML OPERA.SITE (08:48)
[2023-11-05] MEDS: Heparin 10,000 UNITS/10 ML Vial IV (08:51)
--- NOTE | 2023-11-05 09:36 | CM.UR ---
Social Work As per physician, pt should be ready for discharge this afternoon after dialysis. Updates sent to [facility] via [facility] and updated [facility] that pt will return this afternoon. AKILAH Sampson
--- NOTE | 2023-11-05 11:54 | TREXTCAR_ITS ---
Diet Diet Order/Speech Therapy: 11/02/23 15:54 Diet: Renal - General Fluid restriction:: 1500 mL Routine Orders/Code Status Enema Type: Fleetz Enema Frequency: Daily PRN Suppository Frequency: Daily PRN O2 Frequency: PRN Keep PO Greater than or Equal to (%): 90 Wound(s) back: Wound Type: Healing blister from burn right buttock: Wound Type: Pressure Injury left buttock: Wound Type: Pressure Injury L Lateral Mid-back: Wound Type: Puncture rt lower back thoracentesis: Wound Type: Puncture Problem/Diagnosis (1) ESRD (end stage renal disease) on dialysis: Status: Acute Code(s): N18.6 - End stage renal disease; Z99.2 - Dependence on renal dialysis (2) Acute exacerbation of chronic heart failure: Status: Acute Code(s): I50.9 - Heart failure, unspecified Plan #Fluid overload due to bilateral pleural effusion and acute renal failure * S/p thoracentesis. * Had right-sided thoracentesis with removal of 1.36 L of fluid. Pulmonology on board. Nephrology also on board and patient on hemo-dialysis. * on hemodialysis #LEELA: * dialysis dependent. As above. Nephrology on board. * Per nephro, kidney biopsy was consistent with ATN * per nephro, to continue with dialysis MWF. #Hyperkalemia: resolved with dialysis. #History of right IJ thrombus: * This was due to temporary dialysis catheter. * On Eliquis which was held on account of thoracentesis. eliquis resumed today. * He did say he coughed up some blood. * I looked at the tissue and was just scant blood mixed with sputum. Will resume Eliquis and monitor closely. #Iron deficiency anemia * Was transfused with 1 unit of PRBC during this admission * iron profile showed iron deficiency anemia * Iron panel showed iron level of 23 and iron sats of 13.5 and ferritin of 397. * GI on board. * EGD showed oozing gastric ulcer with pigmented material, treated with a heater probe, and nonbleeding gastric ulcers with no stigmata of bleeding. * on IV PPI. Place on oral PPI * * #Recent history of sepsis due to strep bacteremia: On Ancef. Did receive a dose of Ancef 2 g with dialysis 2 days ago. To get a dose of cefazolin with every dialysis. Stop date for cefazolin is 11/25/2023. #History of CAD: On aspirin and statin as well as ezetimibe. Hold aspirin. DVT prophylaxis: SCDs. Eliquis on hold due to iron deficiency anemia Disposition: Anticipate discharge tomorrow if remains hemodynamically stable. Allergies/Procedures Done in Hospital Allergies No Known Allergies Allergy (Verified 10/28/23 23:34) Procedures: Dialysis and EGD Type of Care/Length of Stay Estimated LOS: Convalescent Care Less Than 30 days Type of Care Needed: Skilled Rehab Potential: Fair Prognosis: Fair Additional Orders/Day of Discharge Day of Discharge: 11/05/23 Dietary and Speech Recommendations Dietitian Recommendations/Changes: Continue Renal General diet to manage medical conditions. Discharge Plan Admission Admit Date/Time: 10/29/23 14:09 Primary Reason for Your Visit: pleural effusion, acute renal failure Attending Provider: Ashley Russell Primary Care Provider: Yaw Singh Consulting Providers: Gaudencio Greenberg; Jesus Manuel Huerta; Jesse Almanzar Instructions Patient Instructions: Acute Kidney Failure Dc Discharge Orders/Prescriptions Prescriptions: Continued atorvastatin 80 mg tablet 80 mg PO QHS Qty: 90 3RF ezetimibe 10 mg tablet 10 mg PO DAILY Qty: 90 3RF aspirin 81 MG tablet,chewable 81 mg PO DAILY@0800 Patient Comments: HEART/BLOOD THINNER cefazolin 2 gram recon soln 2 g IV .see below 33 Days Rx Instructions: stop date 11/25/23. Dx: strep bacteremia. cefazolin iv with dialysis: 2gm on Mon, 2gm on Sun, 3gm on Sun. Weekly bmp and cbc. Fax to [phone]. acetaminophen 325 mg Tablet 650 mg PO Q6H PRN PRN (Reason: Pain 1-10 Or Fever >100.7) Qty: 0 0RF melatonin 3 mg Tablet 3 mg PO QHS PRN PRN (Reason: Insomnia) Qty: 0 0RF metoprolol tartrate 25 mg Tablet 25 mg PO BID Qty: 0 0RF sennosides-docusate sodium [Stimulant Laxative Plus] 8.6-50 mg Tablet 2 tab PO BID Qty: 0 0RF pantoprazole 40 mg Tablet,Delayed Release (Dr/Ec) 40 mg PO BID Qty: 0 0RF polyethylene glycol 3350 [Miralax] 17 gram/dose powder 17 g PO BID Qty: 119 0RF Eliquis 5 mg Tablet 10 mg PO BID Qty: 0 0RF Rx Instructions: two twice a day for 13 doses, then one twice a day thereafter-take for 12 weeks oxycodone 5 mg Tablet 5 mg PO Q4H PRN PRN (Reason: Pain Score 4-10) Referrals / Follow Up: Yaw Singh MD [Primary Care Provider] - Within 2 Weeks Disposition Disposition (needs filled in before D/C Order can be placed): [facility]
--- NOTE | 2023-11-05 11:57 | PCM.DC.SUM ---
Providers Date of Admission: 10/29/23 Date of Discharge: 11/05/23 Primary Care Physician: Dr. Yaw Singh MD Consultations 10/29/23 05:32 Consult: Nephrology Routine Consulting Provider: Gaudencio Greenberg Reason for Consult: ESRD on HD with AE CHF due to volume overload. EMERGENT Consult: No MD Notified: Yes Date Notified: 10/29/23 Time Notified: 06:48 Method of Notification: Text 10/30/23 10:19 Consult: Pt Escort / Pulmonary Medicine Routine Consulting Provider: Neptali Santo Reason for Consult: exudative pleural effusion EMERGENT Consult: No Notified: Yes Date Notified: 10/30/23 Time Notified: 10:44 Method of Notification: Text 11/01/23 11:49 Consult: Gastroenterology Routine Consulting Provider: [facility] Reason for Consult: iron deficiency anemia EMERGENT Consult: No Notified: Yes Date Notified: 11/01/23 Time Notified: 11:49 Method of Notification: Text Reason For Visit: ESRD ON HD AE CHF WITH VOLUME OVERLOAD & ACUTE Diagnosis Discharge Diagnosis (1) ESRD (end stage renal disease) on dialysis: Status: Acute Code(s): N18.6 - End stage renal disease; Z99.2 - Dependence on renal dialysis (2) Acute exacerbation of chronic heart failure: Status: Acute Code(s): I50.9 - Heart failure, unspecified Plan #Fluid overload due to bilateral pleural effusion and acute renal failure S/p thoracentesis. Had right-sided thoracentesis with removal of 1.36 L of fluid. Pulmonology on board. Nephrology also on board and patient on hemo-dialysis. on hemodialysis #LEELA: dialysis dependent. As above. Nephrology on board. Per nephro, kidney biopsy was consistent with ATN per nephro, to continue with dialysis MWF. #Hyperkalemia: resolved with dialysis. #History of right IJ thrombus: This was due to temporary dialysis catheter. On Eliquis which was held on account of thoracentesis. eliquis resumed today. He did say he coughed up some blood. I looked at the tissue and was just scant blood mixed with sputum. Will resume Eliquis and monitor closely. #Iron deficiency anemia Was transfused with 1 unit of PRBC during this admission iron profile showed iron deficiency anemia Iron panel showed iron level of 23 and iron sats of 13.5 and ferritin of 397. GI on board. EGD showed oozing gastric ulcer with pigmented material, treated with a heater probe, and nonbleeding gastric ulcers with no stigmata of bleeding. on IV PPI. Place on oral PPI #Recent history of sepsis due to strep bacteremia: On Ancef. Did receive a dose of Ancef 2 g with dialysis 2 days ago. To get a dose of cefazolin with every dialysis. Stop date for cefazolin is 11/25/2023. #History of CAD: On aspirin and statin as well as ezetimibe. Hold aspirin. DVT prophylaxis: SCDs. Eliquis on hold due to iron deficiency anemia Disposition: Anticipate discharge tomorrow if remains hemodynamically stable. Medications at Discharge Home Medications aspirin 81 mg chewable tablet 81 mg PO DAILY@0800 HEALTH 01/23/14 atorvastatin 80 mg tablet 80 mg PO QHS CHOLESTEROL #90 tabs 05/15/22 ezetimibe 10 mg tablet 10 mg PO DAILY CHOLESTEROL #90 tabs 05/15/22 cefazolin 2 gram intravenous solution 2 g IV .see below 33 days 10/23/23 acetaminophen 325 mg tablet 650 mg (2 x 325 mg) PO Q6H PRN PRN Pain 1-10 Or Fever >100.7 #0 tabs 10/25/23 apixaban 5 mg tablet (Eliquis) 10 mg (2 x 5 mg) PO BID #0 tabs 10/25/23 melatonin 3 mg tablet 3 mg PO QHS PRN PRN Insomnia #0 tabs 10/25/23 metoprolol tartrate 25 mg tablet 25 mg PO BID #0 tabs 10/25/23 pantoprazole 40 mg tablet,delayed release 40 mg PO BID #0 tabs 10/25/23 polyethylene glycol 3350 17 gram/dose oral powder (Miralax) 17 g PO BID #119 grams 10/25/23 sennosides 8.6 mg-docusate sodium 50 mg tablet (Stimulant Laxative Plus) 2 tab PO BID #0 tabs 10/25/23 oxycodone 5 mg tablet 5 mg PO Q4H PRN PRN Pain Score 4-10 10/28/23 Hospital Course Operations None Procedures EGD and Thoracentesis Summary of Care Provided Minutes Spent on Discharge: 55 Hospital Course: Patient is a 68-year-old male with an extensive past medical history as outlined was admitted through the ED on 10/29/2023 with a complaint of shortness of breath. His symptoms began the day before admission and was initially with exertion but subsequently progressed and was present at rest. He said he had been drinking more than usual as he did not know that he was post to be on fluid restriction. He also had bilateral lower extremity edema which was 2-3+. He had assisted orthopnea and chest heaviness but denied any fever or chills or sore throat, diarrhea, constipation, heart racing or palpitations. He could not keep his dialysis appointment and came into the ED rather. Chest x-ray showed evidence of volume overload with enlarging bilateral pleural effusions and bilateral airspace disease in the lower lobes. BNP was elevated at 756.4. He was admitted and managed for fluid overload in the setting of LEELA on CKD and dialysis dependent and acute exacerbation of heart failure. Nephrology was consulted and patient was placed on dialysis. Shortness of breath persisted and so he had thoracentesis with removal of 1.36 L of fluid. Pulmonology was also on board. His shortness of breath improved and was weaned down to his baseline oxygen. Hospital course was complicated by acute on chronic anemia. He required transfusion of 1 unit of packed red blood cells. He was on Eliquis and this was held. Gastroenterology was consulted and he had EGD which showed an oozing gastric ulcer with pigmented material which was treated with heater probe and nonbleeding gastric ulcers with no stigmata of bleeding. Patient was placed on pantoprazole. He was placed back on his Eliquis and remained stable. [facility]. He is follow-up with his PCP and nephrology within 1 to 2 weeks. Of note patient was post be on Ancef due to recent diagnosis of strep bacteremia and was to be on the cefazolin 2 g with dialysis till 11/25/2023. Patient seen and examined prior to discharge. He had no active complaints and had an uneventful night. Review of systems otherwise negative. Labs and vitals reviewed. Home medication reviewed and reconciled. Physical Exam Const alert, oriented x3, no apparent distress and average body habitus Constitutional Narrative: frail General Appearance: cooperative, comfortable, well kempt and well developed Orientation / Consciousness: awake, oriented to person, oriented to place and oriented to time HEENT normocephalic, head/scalp atraumatic, hearing grossly normal bilaterally, moist oral mucous membranes and oropharynx normal Eyes PERRL, EOMs intact bilaterally and conjunctivae normal Neck no lymphadenopathy, supple, no JVD, thyroid normal and no carotid bruits General: trachea midline Lymph Lymphatic: no lymphadenopathy noted and no lymphedema noted Resp normal respiratory effort, no retractions and no use of accessory muscles Resp Narrative: diminished breath sounds bibasally, on wheezes or crackles. On room air. Auscultation: Negative for rales, rhonchi or wheezes Cardio regular rate, regular rhythm, S1 normal heart sound, S2 normal heart sound, no murmurs, no rub and no gallops GI normal to inspection, nondistended, normoactive bowel sounds, soft to palpation, non-tender and non-distended Extremity normal capillary refill, no clubbing, cyanosis or edema and no calf tenderness Extremity Narrative: has temporary dialysis catheter in place General Extremity: no tenderness to palpation of joints or extremities Skin no rashes or lesions noted General Skin Exam: no breakdown Neuro oriented x3, CN's II-XII intact bilaterally, moves all extremities, no focal motor deficits, no sensory deficits noted and deep tendon reflexes 2+ bilaterally Sensorium / Orientation: awake, alert, oriented to person, oriented to place and oriented to time Speech: speech normal Motor Exam: strength 5/5 throughout and general weakness Psych thought process normal, cooperative and affect normal Appearance: appropriate Weight / BMI Weight Weight: 202 lb 9.677 oz Body Mass Index (BMI) 29.0 ABG / Lab / Microbiology Data 11/05/23 05:20 11/05/23 05:20 Laboratory: Laboratory Results - last 24 hr 11/05/23 05:20: WBC 5.0, RBC 2.98 L, Hgb 8.1 L, Hct 26.2 L, MCV 87.9, MCH 27.2, MCHC 30.9 L, RDW Std Deviation 49.1 H, RDW Coeff of Marcos 15.3 H, Plt Count 237, MPV 10.3, Immature Gran % (Auto) 1.000 H, Neut % (Auto) 77.8 H, Lymph % (Auto) 8.8 L, [place] % (Auto) 10.2 H, Eos % (Auto) 1.6, Baso % (Auto) 0.6, Absolute Neuts (auto) 3.9, Absolute Lymphs (auto) 0.44 L, Nucleated RBC % 0, Sodium 132 L, Potassium 6.0 H*, Chloride 100, Carbon Dioxide 23.0, Anion Gap 9, BUN 95 H, Creatinine 10.10 H*, Estim Creat Clear Calc 7.87, Est GFR (MDRD) Af Amer 7 L, Est GFR (MDRD) Non-Af 6 L, BUN/Creatinine Ratio 9.4 L, Glucose 98, Calcium 7.7 L Microbiology: Microbiology 10/29/23 15:16 Fluid - Pleural (Lung) Gram Stain - Final 10/29/23 15:16 Fluid - Pleural (Lung) Body Fluid Culture - Final Culture exhibits no growth. 10/29/23 15:16 Fluid - Pleural (Lung) Anaerobic Culture - Final No growth in 5 days. D/C Instructions Discharge Diet: Low fat / Low cholesterol Discharge Activity: Return to Normal Activity Weight Bearing Status: Weight bearing as tolerated Call your doctor if you observe: Fever of 101 or Higher, Shortness of breath, Dizziness, Swelling in the ankles and Chest pain Meaningful Use Info Meaningful Use Meaningful Use Diagnoses (Choose all that apply): None applicable Ischemic Stroke Statin Dosing Therapy Reference: STATIN DOSE THERAPY REFERENCE: * Patients > 75 years receive moderate or high dose statin therapy. * Patients 75 years or YOUNGER should receive HIGH intensity statin dose unless contraindicated. You will be required to document reason for non-treatment if statin daily dose does not meet guidelines. HIGH DOSE STATIN THERAPY DAILY Atorvastatin > than or = to 40 mg Rosuvastatin > than or = to 20 mg Amlodipine + Atorvastatin > than or = to 2.5/40 mg Ezetimibe + Simvastatin 10/80 mg Simvastatin 80mg Discharge Plan Admission Admit Date/Time: 10/29/23 14:09 Primary Reason for Your Visit: pleural effusion, acute renal failure Attending Provider: Ashley Russell Primary Care Provider: Yaw Singh Consulting Providers: Gaudencio Greenberg; Jesus Manuel Huerta; Jesse Almanzar Instructions Patient Instructions: Acute Kidney Failure Dc Discharge Orders/Prescriptions Prescriptions: Continued atorvastatin 80 mg tablet 80 mg PO QHS Qty: 90 3RF ezetimibe 10 mg tablet 10 mg PO DAILY Qty: 90 3RF aspirin 81 MG tablet,chewable 81 mg PO DAILY@0800 Patient Comments: HEART/BLOOD THINNER cefazolin 2 gram recon soln 2 g IV .see below 33 Days Rx Instructions: stop date 11/25/23. Dx: strep bacteremia. cefazolin iv with dialysis: 2gm on Mon, 2gm on Sun, 3gm on Fri. Weekly bmp and cbc. Fax to [phone]. acetaminophen 325 mg Tablet 650 mg PO Q6H PRN PRN (Reason: Pain 1-10 Or Fever >100.7) Qty: 0 0RF melatonin 3 mg Tablet 3 mg PO QHS PRN PRN (Reason: Insomnia) Qty: 0 0RF metoprolol tartrate 25 mg Tablet 25 mg PO BID Qty: 0 0RF sennosides-docusate sodium [Stimulant Laxative Plus] 8.6-50 mg Tablet 2 tab PO BID Qty: 0 0RF pantoprazole 40 mg Tablet,Delayed Release (Dr/Ec) 40 mg PO BID Qty: 0 0RF polyethylene glycol 3350 [Miralax] 17 gram/dose powder 17 g PO BID Qty: 119 0RF Eliquis 5 mg Tablet 10 mg PO BID Qty: 0 0RF Rx Instructions: two twice a day for 13 doses, then one twice a day thereafter-take for 12 weeks oxycodone 5 mg Tablet 5 mg PO Q4H PRN PRN (Reason: Pain Score 4-10) Referrals / Follow Up: Yaw Singh MD [Primary Care Provider] - Within 2 Weeks Gaudencio Greenberg MD [Med Staff - Consulting] - Within 1 Week Bud Beck DO [Med Staff - Active Staff] - Within 2 Weeks Disposition Disposition (needs filled in before D/C Order can be placed): [facility] Charges/Coding Visit Charges Inpatient E&M: 95600 Disch Hosp >30min
--- NOTE | 2023-11-05 12:47 | CM.UR ---
Social Work Pt is ready for discharge back to [facility] today. SW sent all discharge paperwork to [facility] via [facility]. SW set up a 3pm ambulance to take pt back to [facility]. SW let [facility] know time of transport. SW also let pt know, and called pt's to let her know time of transport. All in agreement with plan and time, pt return to [place], skilled today. AKILAH Sampson
[2023-11-05] MEDS: Cefazolin 2 GM in 0.9% Normal Saline (100mL Bag) 100 ML IV (13:56)
[2023-11-05] MEDS: 0.9% Saline Lock 10 ML Syringe IV ×2 (13:57→15:10)
[2023-11-05] MEDS: Aspirin 81 MG TAB.CHEW PO (14:00)
[2023-11-05] MEDS: APIXABAN 5 MG TABLET PO (14:00)
[2023-11-05] MEDS: Metoprolol Tartrate 25 MG Tablet PO (14:01)
[2023-11-05] MEDS: Pantoprazole Sodium 40 MG Tablet PO (14:19)
[2023-11-05] MEDS: Ezetimibe 10 MG Tablet PO (14:19)
[2023-11-05] MEDS: Senna/Docusate Sodium 1 Tablet 2 TABLET PO (14:19)
--- NOTE | 2023-11-05 14:33 | NURSING ---
Report attempted to be called x2 at 14:34 by this RN, with no answer x2.
--- NOTE | 2023-11-05 15:27 | CHAPLAIN ---
Type of Pastoral Visit ___ Initial Visit _x__ Follow-up Visit ___ On-call Visit ___ General Patient Visit ___ Spiritual Assessment ___ Family Conference ___ Bereavement ___ Rapid Response ___ Code Blue ___ Other (describe below) Pastoral Care Referral From _x__ Patient ___ Family ___ Nurse ___ Physician ___ Portable Feed Mill Operator ___ Assistant Dean ___ Other (describe below) Sacrament/Intervention _x__ Active listening ___ Anointing ___ Advent ___ Bereavement ___ Communion _x__ Lynne exploration ___ _x__ Life review _x__ Prayer ___ Reconciliation ___ Sacrament of Sick _x__ Supportive presence ___ Wedding ___ Other (describe below) Pastoral Comments patient is more alert than on the first visit to him about two weeks ago; pt describes his health situation and sudden change for his life; pt shares new perspective on life since this health crisis; pt speaks of past health issues and recovery of them; pt speaks of his spiritual understanding of his being alive and in recovery again; pt speaks of some life experiences from his past; RN came to do treatment but the patient requested a prayer first before this factory maintenance manager left the room; pt expresses thanks for the support
== END 2023-11-05 15:36 | DRG 682 ==
LOC: ED 10-29 04:42 → PCU 10-29 04:58
PROVIDERS: Anesthesiology; Internal Medicine; Internal Medicine Gastroenterology; Internal Medicine Nephrology; Admitting Provider Internal Medicine; Emergency Provider Emergency Medicine; PCP Family Medicine; Visit Provider Student in an Organized Health Care Education/Training Program
PROC: 0DJ08ZZ Inspection of Upper Intestinal Tract, Via Natural or Artificial Opening Endoscopic (ICD-10-PCS; CPT 43235; principal; 2023-11-02 12:25)
DX: N17.0 Acute kidney failure with tubular necrosis (principal); K25.4 Chronic or unspecified gastric ulcer with hemorrhage; I50.33 Acute on chronic diastolic (congestive) heart failure; I82.C11 Acute embolism and thrombosis of right internal jugular vein; R78.81 Bacteremia; T82.868A Thrombosis due to vascular prosthetic devices, implants and grafts, initial encounter; J91.8 Pleural effusion in other conditions classified elsewhere; D68.32 Hemorrhagic disorder due to extrinsic circulating anticoagulants; D62 Acute posthemorrhagic anemia; R04.2 Hemoptysis; Z99.2 Dependence on renal dialysis; Z68.31 Body mass index [BMI] 31.0-31.9, adult; Z95.2 Presence of prosthetic heart valve; K21.9 Gastro-esophageal reflux disease without esophagitis; E78.5 Hyperlipidemia, unspecified; I25.10 Atherosclerotic heart disease of native coronary artery without angina pectoris; M19.90 Unspecified osteoarthritis, unspecified site; E87.5 Hyperkalemia; K44.9 Diaphragmatic hernia without obstruction or gangrene; T45.515A Adverse effect of anticoagulants, initial encounter; K25.9 Gastric ulcer, unspecified as acute or chronic, without hemorrhage or perforation; B95.4 Other streptococcus as the cause of diseases classified elsewhere; G89.29 Other chronic pain; Z91.199 Patient's noncompliance with other medical treatment and regimen due to unspecified reason; R09.02 Hypoxemia; E66.9 Obesity, unspecified; Z79.82 Long term (current) use of aspirin; Z79.01 Long term (current) use of anticoagulants; Z79.891 Long term (current) use of opiate analgesic; Z92.21 Personal history of antineoplastic chemotherapy; Z95.1 Presence of aortocoronary bypass graft; Z95.5 Presence of coronary angioplasty implant and graft; Z85.01 Personal history of malignant neoplasm of esophagus
CPT/HCPCS: 32555; 36415; 71045; 71046; 71250; 80048; 82607; 82728; 82747; 82945; 83540; 83550; 83605; 83615; 83880; 84156; 84157; 84484; 85014; 85018; 85025; 85027; 85610; 85730; 86850; 86900; 86901; 86920; 87070; 87075; 87205; 88108; 88305; 88313; 89050; 90937; 93005; 93985; 94762; 97110; 97162; 97166; 97530; 97535; 99285; J7030; J7040; P9016; A4216; G0257; J2405

== ENCOUNTER → 2023-11-12 | Outpatient (CLI) | payer MEDICARE, OTHER, SELFPAY ==
[2023-11-12 19:37] LABS: Absolute Lymphocyte Count 0.38 X10^3/uL (0.83-4.51); Absolute Neutrophil Count 6.9 X10^3/uL (2.0-7.7); Basophil# 0.02 X10^3/uL; Basophil% 0.2 % (0-1); Eosinophil# 0.01 X10^3/uL; Eosinophils% 0.1 % (0-5); Hematocrit 25.6 % (40-54); Hemoglobin 7.6 g/dL (13.0-16.5); Lymphocyte # 0.38 X10^3/ul (0.83-4.51); Lymphocyte % 4.7 % (19-41); Mean Corp Hgb Conc 29.7 g/dL (32-36); Mean Corpuscular Hgb 27.2 pg (27.0-32.0); Mean Corpuscular Volume 91.8 fL (80-94); Mean Platelet Vol. 10.1 fl (6.2-12.0); Monocyte# 0.58 X10^3/uL; Monocyte% 7.2 % (0-10); NRBC Flagged by Analyzer 0 % (0-5); Neutrophil # 6.85 X10^3/uL (2.7-7.7); Neutrophil % 85.4 % (47-70); POSITIVE DIFFERENTIAL YES; Platelet Count 210 K/mm3 (150-450); RBC Distribution Width CV 15.8 % (11.6-14.6); RBC Distribution Width SD 51.7 fl (35.1-43.9); Red Blood Count 2.79 M/mm3 (4.6-6.2)
[2023-11-12 19:48] LABS: ALB/GLOB Ratio 0.3 RATIO (0.9-2.4); AST(SGOT) 34 U/L (15-37); Alanine Aminotransfer ALT/SGPT 20 U/L (16-61); Albumin, Serum 1.5 g/dL (3.2-5.0); Alkaline Phosphatase 70 U/L (45-117); Anion Gap 6 (5-15); BUN 28 mg/dL (7-18); BUN/Creat Ratio 7.6 RATIO (10-20); Calcium,Total 6.7 mg/dL (8.5-10.1); Chloride 99 mmol/L (98-107); Creatinine, Serum 3.69 mg/dL (0.70-1.30); EST Glomerular Filtration Rate 17 mL/min (>60); Est Glom Filt Rate - Afr Amer 21 mL/min (>60); Globulin 4.5 g/dL (2.2-4.2); Glucose 120 mg/dL (74-106); Potassium 3.5 mmol/L (3.5-5.1); Sodium Level 138 mmol/L (136-145)
[2023-11-12 20:23] LABS: Differential Indicated SCAN CRITERIA MET
[2023-11-12 20:42] LABS: Anisocytosis RARE; Macrocytosis RARE; Platelet Estimate ADEQUATE (ADEQ); Platelet Morphology LARGE; Red Cell Morphology N CHROM NORMAL (NORM C&C)
== END | disposition home or self-care (01) ==
PROVIDERS: PCP Family Medicine; Referring Provider Family Medicine; Visit Provider Family Medicine
DX: N17.9 Acute kidney failure, unspecified (principal)
CPT/HCPCS: 80053; 85025

== ENCOUNTER 2023-11-14 04:32 | Inpatient (IN) | payer MEDICARE, OTHER, SELFPAY ==
[2023-11-14] VITALS (24 sets, daily range): BP systolic 1–221; BP diastolic 76–93; PULSE 74–119; RESP 14–34; TEMP 36.3–36.8; O2SAT 95–100; BMI 28.2; BMI 26.9
--- NOTE | 2023-11-14 05:09 | RAD_ITS ---
INDICATION: HEMOPTYSIS EXAMINATION/TECHNIQUE: X-RAY - XR Chest 1 View COMPARISON: Chest radiograph 11/01/2023. Findings: Single frontal view of the chest. LUNG PARENCHYMA/PLEURA: Stable large left and small right pleural effusions with adjacent airspace disease. No pneumothorax. HEART/GREAT VESSELS: Cardiomediastinal silhouette is partially obscured. Valve endovascular stent material. Left large bore multilumen central venous catheter tip overlies cavoatrial junction. BONES: Median sternotomy wires. RAD/Chest 1 View (Portable) IMPRESSION: Stable large left and small right pleural effusions with likely adjacent atelectasis versus other airspace disease, to include pneumonia or neoplastic process. Recommend follow-up to resolution. Electronically Signed: Jarrell Calderon MD at 6:06 EDT ,
[2023-11-14] MEDS: Ondansetron 4 MG/2 ML Vial IV ×2 (05:50→07:14)
[2023-11-14] MEDS: Morphine 4 MG/ML Syringe IV (05:51)
[2023-11-14 06:08] LABS: Absolute Lymphocyte Count 0.47 X10^3/uL (0.83-4.51); Basophil# 0.03 X10^3/uL; Basophil% 0.4 % (0-1); Eosinophil# 0.02 X10^3/uL; Eosinophils% 0.3 % (0-5); Hematocrit 22.7 % (40-54); Hemoglobin 6.8 g/dL (13.0-16.5); Lymphocyte # 0.47 X10^3/ul (0.83-4.51); Lymphocyte % 6.5 % (19-41); Mean Corpuscular Hgb 27.2 pg (27.0-32.0); Mean Corpuscular Volume 90.8 fL (80-94); Mean Platelet Vol. 10.1 fl (6.2-12.0); Monocyte# 0.54 X10^3/uL; Monocyte% 7.5 % (0-10); NRBC Flagged by Analyzer 0 % (0-5); Neutrophil # 5.99 X10^3/uL (2.7-7.7); Neutrophil % 82.9 % (47-70); POSITIVE DIFFERENTIAL YES; Platelet Count 177 K/mm3 (150-450); RBC Distribution Width CV 16.2 % (11.6-14.6); RBC Distribution Width SD 52.4 fl (35.1-43.9); White Blood Count 7.2 K/mm3 (4.4-11.0)
[2023-11-14 06:26] LABS: International Normalized Ratio 3.2; Prothrombin Time (Protime)PT. 32.4 SECONDS (11.7-14.9)
[2023-11-14 06:27] LABS: Partial Thromboplast Time 48.1 Seconds (24.1-36.2)
[2023-11-14 06:36] LABS: Anion Gap 8 (5-15); BUN 51 mg/dL (7-18); BUN/Creat Ratio 8.4 RATIO (10-20); Calcium,Total 7.7 mg/dL (8.5-10.1); Chloride 97 mmol/L (98-107); Creatinine, Serum 6.07 mg/dL (0.70-1.30); EST Glomerular Filtration Rate 10 mL/min (>60); Est Glom Filt Rate - Afr Amer 12 mL/min (>60); Estimated Creatinine Clearance 12.92 ml/min; Glucose 101 mg/dL (74-106); Potassium 3.9 mmol/L (3.5-5.1); Sodium Level 135 mmol/L (136-145)
[2023-11-14 06:45] LABS: Lactic Acid 0.8 mmol/L (0.4-1.9)
--- NOTE | 2023-11-14 06:59 | NURSING ---
PAGED DR THEODORE, NEPHROLOGY
[2023-11-14 07:06] LABS: Phosphorus 4.2 mg/dL (2.5-4.9)
[2023-11-14] MEDS: HYDROmorphone 0.5 MG/0.5 ML SYRINGE IV (07:14)
--- NOTE | 2023-11-14 07:15 | CT_ITS ---
EXAM: CT ANGIOGRAPHY CHEST, ABDOMEN AND PELVIS WITH INTRAVENOUS CONTRAST CLINICAL INDICATION: hemoptysis vs hematemesis, recent gastric ulcer, acute renal injury on dialysis x 2 weeks, esophageal cancer, hypertension, stents/CABG, aortic valve repacement. TECHNIQUE: Helically acquired angiography images were obtained of the chest, abdomen and pelvis with intravenous contrast. This CT exam was performed using one or more of the following dose reduction techniques: automated exposure control, adjustment of the mA and/or kV according to patient size, and/or use of iterative reconstruction technique. MIP reconstructed images were created and reviewed. CONTRAST: IV 100mL [id number] RADIATION DOSE: CTDIvol = 16.16 mGy, DLP = 1321.56 mGy-cm COMPARISON: CT chest 10/29/2023, and CT abdomen and pelvis 10/11/2023 FINDINGS: VASCULATURE: AORTA: Surgical changes at the aortic root. Normal in caliber. No dissection. PULMONARY ARTERIES: No filling defects identified in the pulmonary arteries to suggest pulmonary embolism. Normal in caliber. GREAT VESSELS OF AORTIC ARCH: Unremarkable. Normal in caliber. No dissection. CELIAC TRUNK AND MESENTERIC ARTERIES: No acute findings. No occlusion or significant stenosis. No dissection. RENAL ARTERIES: No acute findings. No occlusion or significant stenosis. No dissection. ILIAC ARTERIES: No acute findings. No occlusion or significant stenosis. No dissection. CHEST: LUNGS AND PLEURAL SPACES: Large left and small right pleural effusions, partially loculated, but decreased in size compared with the October 28 exam. No mass. No pneumothorax. HEART: Coronary artery calcifications. Heart size is normal. No pericardial effusion. MEDIASTINUM: Surgical changes in the posterior mediastinum which may indicate a partial esophagectomy with gastric pull-through. Surgical changes of the mediastinum. No mediastinal or hilar adenopathy. No hiatal hernia. THYROID: Unremarkable. No thyroid lesions. ABDOMEN: LIVER: Unremarkable. Homogeneous. No focal mass. GALLBLADDER AND BILE DUCTS: Unremarkable. No calcified gallstones. No gallbladder distention or wall edema. No intra- or extrahepatic biliary ductal dilation. PANCREAS: Unremarkable. No focal cystic or solid mass. SPLEEN: Unremarkable. Normal size without focal cystic or solid mass. ADRENALS: Unremarkable. No nodules. KIDNEYS AND URETERS: Diminished enhancement of the renal parenchyma with some renal atrophy. Findings suggest sequela of renal insufficiency. No hydronephrosis. STOMACH AND BOWEL: Diverticular disease of the colon with no diverticulitis. No stomach or bowel distention. PELVIS: APPENDIX: No evidence of acute appendicitis. BLADDER: Unremarkable. REPRODUCTIVE: Unremarkable as visualized. No mass. CHEST, ABDOMEN and PELVIS: INTRAPERITONEAL SPACE: Small amount of free fluid in the pelvis. No free air. BONES/JOINTS: Unremarkable. No suspicious lytic or blastic abnormality. SOFT TISSUES: Body wall edema. No discrete abdominal or pelvic wall hernia. LYMPH NODES: Unremarkable. No enlarged lymph nodes. CT/CTA Chst, Abd, Pel W and/or WO IMPRESSION: 1. Large left and small right pleural effusions, partially loculated, but decreased in size compared with the October 28 exam. 2. Surgical changes in the posterior mediastinum which may indicate a partial esophagectomy with gastric pull-through. 3. No gastric ulcer identified by CT. Consider follow-up with endoscopy. 4. Body wall edema. Electronically Signed: Hemanth Haynes MD at 8:01 EDT ,
--- NOTE | 2023-11-14 07:41 | EDS_ITS ---
HPI History of Present Illness Chief Complaint: General Illness [facility] Medical History (Updated 11/14/23 @ 07:[address] Jarvis Bowles, DO) Thrombus of venous dialysis catheter ESRD (end stage renal disease) on dialysis Acute respiratory insufficiency Medical non-compliance Acute exacerbation of chronic heart failure Chronic kidney disease (CKD) Pleural effusion Dyspnea Acute kidney injury Adenocarcinoma of esophagus LEELA (acute kidney injury) Non-smoker Esophageal carcinoma Atherosclerosis of coronary artery of [place] heart without angina pectoris 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 Essential (primary) hypertension Non-rheumatic aortic stenosis Syncope and collapse Hyperlipidemia Atherosclerotic heart disease of [place] coronary artery with other forms of angina pectoris Encounter for long-term current use of high risk medication abnormal stress test Angina pectoris Exertional chest pain URI (upper respiratory infection) Home Medications ?Medication ?Instructions ?Recorded ?Last Taken ?Type aspirin 81 mg chewable tablet 81 mg PO DAILY@0800 HEALTH 01/23/14 10/10/23 History atorvastatin 80 mg tablet 80 mg PO QHS CHOLESTEROL #90 tabs 05/15/22 10/10/23 Rx ezetimibe 10 mg tablet 10 mg PO DAILY CHOLESTEROL #90 tabs 05/15/22 10/10/23 Rx cefazolin 2 gram intravenous 2 g IV .see below 33 days 10/23/23 Unknown Rx solution acetaminophen 325 mg tablet 650 mg (2 x 325 mg) PO Q6H PRN PRN 10/25/23 Unknown Rx Pain 1-10 Or Fever >100.7 #0 tabs apixaban 5 mg tablet (Eliquis) 10 mg (2 x 5 mg) PO BID #0 tabs 10/25/23 Unknown Rx melatonin 3 mg tablet 3 mg PO QHS PRN PRN Insomnia #0 10/25/23 Unknown Rx tabs metoprolol tartrate 25 mg tablet 25 mg PO BID #0 tabs 10/25/23 Unknown Rx pantoprazole 40 mg tablet,delayed 40 mg PO BID #0 tabs 10/25/23 Unknown Rx release polyethylene glycol 3350 17 17 g PO BID #119 grams 10/25/23 Unknown Rx gram/dose oral powder (Miralax) sennosides 8.6 mg-docusate sodium 2 tab PO BID #0 tabs 10/25/23 Unknown Rx 50 mg tablet (Stimulant Laxative Plus) Allergy/AdvReac Type Severity Reaction Status Date / Time No Known Allergies Allergy Verified 10/28/23 23:34 Family History Father Heart disease Myocardial infarction Hypertension Brother Hypertension Sister Heart disease Myocardial infarction Surgical History History of aortic valve replacement (03/03/19) History of coronary artery stent placement (12/31/18) H/O coronary artery bypass surgery (09/18/02) History of tonsillectomy History of hernia repair Social History Smoking Status: Never smoker alcohol intake: never substance use type: does not use caffeine: No what type of physical activity do you participate in: walking frequency: daily EXAM Physical Exam Const Vital Signs: 11/14/23 04:33 11/14/23 04:40 11/14/23 04:43 Temperature 98.2 F Temperature Source Oral Pulse Rate 89 Respiratory Rate 34 H Respiratory Effort Normal Respiratory Pattern Normal Blood Pressure 116/77 Blood Pressure Mean 90 Pulse Ox 99 100 Oxygen Delivery Method Nasal Cannula Nasal Cannula Oxygen Flow Rate (L/min) 2 2 11/14/23 05:40 11/14/23 06:06 11/14/23 07:00 Temperature 97.4 F L Temperature Source Oral Pulse Rate 86 84 88 Respiratory Rate 32 H 19 H 24 H Respiratory Effort Respiratory Pattern Blood Pressure 115/77 123/81 H 122/77 H Blood Pressure Mean 89 95 92 Pulse Ox 99 95 98 Oxygen Delivery Method Nasal Cannula Nasal Cannula Nasal Cannula Oxygen Flow Rate (L/min) 2 2 2 [facility] Lab Data Labs: Laboratory Results - last 24 hr 11/14/23 05:50 WBC 7.2 RBC 2.50 L Hgb 6.8 L Hct 22.7 L MCV 90.8 MCH 27.2 MCHC 30.0 L RDW Std Deviation 52.4 H RDW Coeff of Marcos 16.2 H Plt Count 177 MPV 10.1 Immature Gran % (Auto) 2.400 H Neut % (Auto) 82.9 H Lymph % (Auto) 6.5 L [place] % (Auto) 7.5 Eos % (Auto) 0.3 Baso % (Auto) 0.4 Absolute Neuts (auto) 6.0 Absolute Lymphs (auto) 0.47 L Nucleated RBC % 0 PT 32.4 H INR 3.2 APTT 48.1 H Sodium 135 L Potassium 3.9 Chloride 97 L Carbon Dioxide 30.0 Anion Gap 8 BUN 51 H Creatinine 6.07 H Estim Creat Clear Calc 12.92 Est GFR (MDRD) Af Amer 12 L Est GFR (MDRD) Non-Af 10 L BUN/Creatinine Ratio 8.4 L Glucose 101 Lactic Acid 0.8 Calcium 7.7 L Phosphorus 4.2 Radiography Diagnostic Testing: Clinical Impression(s) from Imaging Studies Chest X-Ray 11/14/23 05:09 IMPRESSION: Stable large left and small right pleural effusions with likely adjacent atelectasis versus other airspace disease, to include pneumonia or neoplastic process. Recommend follow-up to resolution. Electronically Signed: Jarrell Calderon MD at 6:06 EDT , Discharge Plan Triage Chief Complaint: General Illness ED Provider: Jarvis Bowles Dx/Rx/DC Orders Clinical Impression: Anemia, Current use of tank terminal gauger anticoagulation, End stage renal disease on dialysis Prescriptions: No Action atorvastatin 80 mg tablet 80 mg PO QHS Qty: 90 3RF ezetimibe 10 mg tablet 10 mg PO DAILY Qty: 90 3RF aspirin 81 MG tablet,chewable 81 mg PO DAILY@0800 Patient Comments: HEART/BLOOD THINNER cefazolin 2 gram recon soln 2 g IV .see below 33 Days Rx Instructions: stop date 11/25/23. Dx: strep bacteremia. cefazolin iv with dialysis: 2gm on Mon, 2gm on Wed, 3gm on Fri. Weekly bmp and cbc. Fax to [phone]. acetaminophen 325 mg Tablet 650 mg PO Q6H PRN PRN (Reason: Pain 1-10 Or Fever >100.7) Qty: 0 0RF melatonin 3 mg Tablet 3 mg PO QHS PRN PRN (Reason: Insomnia) Qty: 0 0RF metoprolol tartrate 25 mg Tablet 25 mg PO BID Qty: 0 0RF sennosides-docusate sodium [Stimulant Laxative Plus] 8.6-50 mg Tablet 2 tab PO BID Qty: 0 0RF pantoprazole 40 mg Tablet,Delayed Release (Dr/Ec) 40 mg PO BID Qty: 0 0RF polyethylene glycol 3350 [Miralax] 17 gram/dose powder 17 g PO BID Qty: 119 0RF Eliquis 5 mg Tablet 10 mg PO BID Qty: 0 0RF Rx Instructions: two twice a day for 13 doses, then one twice a day thereafter-take for 12 weeks Primary Care Provider: Yaw Singh Referrals: Yaw Singh MD [Primary Care Provider] - Print Language: Chinese
--- NOTE | 2023-11-14 07:41 | EX.ED.DYSGE1 ---
HPI History of Present Illness Chief Complaint: General Illness Informant: patient, spouse/S.O. and EMS Narrative Narrative: Patient is a 68-year-old male who was recently admitted to the hospital secondary to sepsis and developed end-stage renal disease requiring dialysis. He is also currently on Eliquis. [facility] and then a[facility] and had bouts of coughing up bright red blood. Secondary to this he was sent to the hospital for evaluation. [facility] Medical History (Updated 11/14/23 @ 07:[address] 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 Essential (primary) hypertension Non-rheumatic aortic stenosis Syncope and collapse Hyperlipidemia Atherosclerotic heart disease of [place] coronary artery with other forms of angina pectoris Encounter for long-term current use of high risk medication abnormal stress test Angina pectoris Exertional chest pain URI (upper respiratory infection) Home Medications ?Medication ?Instructions ?Recorded ?Last Taken ?Type aspirin 81 mg chewable tablet 81 mg PO DAILY@0800 HEALTH 01/23/14 10/10/23 History atorvastatin 80 mg tablet 80 mg PO QHS CHOLESTEROL #90 tabs 05/15/22 10/10/23 Rx ezetimibe 10 mg tablet 10 mg PO DAILY CHOLESTEROL #90 tabs 05/15/22 10/10/23 Rx cefazolin 2 gram intravenous 2 g IV .see below 33 days 10/23/23 Unknown Rx solution acetaminophen 325 mg tablet 650 mg (2 x 325 mg) PO Q6H PRN PRN 10/25/23 Unknown Rx Pain 1-10 Or Fever >100.7 #0 tabs apixaban 5 mg tablet (Eliquis) 10 mg (2 x 5 mg) PO BID #0 tabs 10/25/23 Unknown Rx melatonin 3 mg tablet 3 mg PO QHS PRN PRN Insomnia #0 10/25/23 Unknown Rx tabs metoprolol tartrate 25 mg tablet 25 mg PO BID #0 tabs 10/25/23 Unknown Rx pantoprazole 40 mg tablet,delayed 40 mg PO BID #0 tabs 10/25/23 Unknown Rx release polyethylene glycol 3350 17 17 g PO BID #119 grams 10/25/23 Unknown Rx gram/dose oral powder (Miralax) sennosides 8.6 mg-docusate sodium 2 tab PO BID #0 tabs 10/25/23 Unknown Rx 50 mg tablet (Stimulant Laxative Plus) Allergy/AdvReac Type Severity Reaction Status Date / Time No Known Allergies Allergy Verified 10/28/23 23:34 Family History Father Heart disease Myocardial infarction Hypertension Brother Hypertension Sister Heart disease Myocardial infarction Surgical History History of aortic valve replacement (03/03/19) History of coronary artery stent placement (12/31/18) H/O coronary artery bypass surgery (09/18/02) History of tonsillectomy History of hernia repair Social History Smoking Status: Never smoker alcohol intake: never substance use type: does not use caffeine: No what type of physical activity do you participate in: walking frequency: daily ROS ROS ED Constitutional Constitutional ED: Denies chills or fever(s) ENT ENT ED: Denies sore throat Cardiovascular Cardiovascular: Denies chest pain Respiratory/Chest Respiratory/Chest: Reports cough, dyspnea and other Details: Positive hemoptysis Gastrointestinal Gastrointestinal: Denies abdominal pain, diarrhea, nausea or vomiting Integumentary Denies rash Neurologic Neurologic: Denies headache(s) Hematologic/Lymphatic Hematologic/Lymphatic: Reports easy bleeding and easy bruising EXAM Physical Exam Const Vital Signs: 11/14/23 04:33 11/14/23 04:40 11/14/23 04:43 Temperature 98.2 F Temperature Source Oral Pulse Rate 89 Respiratory Rate 34 H Respiratory Effort Normal Respiratory Pattern Normal Blood Pressure 116/77 Blood Pressure Mean 90 Pulse Ox 99 100 Oxygen Delivery Method Nasal Cannula Nasal Cannula Oxygen Flow Rate (L/min) 2 2 11/14/23 05:40 11/14/23 06:06 11/14/23 07:00 Temperature 97.4 F L Temperature Source Oral Pulse Rate 86 84 88 Respiratory Rate 32 H 19 H 24 H Respiratory Effort Respiratory Pattern Blood Pressure 115/77 123/81 H 122/77 H Blood Pressure Mean 89 95 92 Pulse Ox 99 95 98 Oxygen Delivery Method Nasal Cannula Nasal Cannula Nasal Cannula Oxygen Flow Rate (L/min) 2 2 2 Positive well nourished and well developed General Appearance ED: well developed and pallor HEENT Reports dry mucous membranes HEENT Narrative: patient has dried blood in bilateral naris. There is dried blood along the patient's chin and lower lip. No tongue or lip swelling no oral lesions no airway edema or compromise. No clots or active bleeding noted in the posterior pharynx Mouth ED: Yes dry mucous membranes Mouth: dry mucous membranes Eyes PERRL and EOMs intact bilaterally General Eye ED: Yes pale conjunctiva Neck supple Chest Wall palpation of chest normal Resp normal respiratory effort Resp Narrative: Breath sounds are diminished throughout with crackles noted in the left lower lobe Cardio regular rate and regular rhythm GI normal to inspection, nondistended, normoactive bowel sounds, non-tender, non-distended and no masses GI Narrative: No pulsatile mass or fluid wave Auscultation: normoactive bowel sounds Palpation: soft Extremity Extremity Narrative: +3 pitting edema to the bilateral lower extremities is equal and symmetric Neuro oriented x3 and CN's II-XII intact bilaterally Sensorium / Orientation: alert Psych Psych Narrative: Patient has a flat affect Skin no rashes or lesions noted Skin Narrative: Capillary refill is at 3 seconds General Skin Exam: pallor MDM MDM MDM Narrative Medical decision making narrative: Patient arrive to the ER afebrile and normotensive satting 98 to 100% on 2 L nasal cannula. With the patient waking from sleep and having bouts of hemoptysis there is concern that he has developed a pulmonary embolus despite being on Eliquis or a spontaneous bleed within the lung tissue. There is dried blood in the bilateral naris and there is also possibility patient had a spontaneous nosebleed that dripped into the posterior pharynx while he was sleeping and that caused his bouts of hemoptysis. It is also possible patient has hematemesis and not hemoptysis and could be having internal bleeding secondary to his Eliquis use. There is also concern for acute blood loss anemia based on his blood thinner use and reported hemoptysis. Secondary to his basic labs were obtained which did confirm acute loss anemia with hemoglobin dropping from 7.6-6.8. Chest x-ray showed persistent left-sided pleural effusion. However in order to rule out PE or dissection or perforated ulcer as the cause of his symptoms I did elect to order a CTA. Prior to doing so I discussed the case with nephrology and they do agreed to dialyze the patient today following his imaging study. As patient will require dialysis and this cannot be performed in the ER medicine was contact. They agree to accept the patient for observation at this time in order to review his CT scan and provide dialysis. The patient's hemoglobin was below 7 and therefore 1 unit of blood was ordered. The patient had no further bouts of hematemesis or hemoptysis while in the ER leading me to believe the patient most likely had spontaneous nasal bleeding that drained into the posterior pharynx leading to his symptoms. However in order to ensure there is no further derangement internally the imaging will be obtained and patient will undergo dialysis and if he remains hemodynamically stable he will be discharged home History & Record Review Discussion w/independent historian: Patient Lab Data Attestation: I reviewed the patient's lab results. Labs: Laboratory Results - last 24 hr 11/14/23 05:50 WBC 7.2 RBC 2.50 L Hgb 6.8 L Hct 22.7 L MCV 90.8 MCH 27.2 MCHC 30.0 L RDW Std Deviation 52.4 H RDW Coeff of [place] 16.2 H Plt Count 177 MPV 10.1 Immature Gran % (Auto) 2.400 H Neut % (Auto) 82.9 H Lymph % (Auto) 6.5 L [place] % (Auto) 7.5 Eos % (Auto) 0.3 Baso % (Auto) 0.4 Absolute Neuts (auto) 6.0 Absolute Lymphs (auto) 0.47 L Nucleated RBC % 0 PT 32.4 H INR 3.2 APTT 48.1 H Sodium 135 L Potassium 3.9 Chloride 97 L Carbon Dioxide 30.0 Anion Gap 8 BUN 51 H Creatinine 6.07 H Estim Creat Clear Calc 12.92 Est GFR (MDRD) Af Amer 12 L Est GFR (MDRD) Non-Af 10 L BUN/Creatinine Ratio 8.4 L Glucose 101 Lactic Acid 0.8 Calcium 7.7 L Phosphorus 4.2 Radiography Diagnostic Testing: Clinical Impression(s) from Imaging Studies Chest X-Ray 11/14/23 05:09 IMPRESSION: Stable large left and small right pleural effusions with likely adjacent atelectasis versus other airspace disease, to include pneumonia or neoplastic process. Recommend follow-up to resolution. Electronically Signed: Jarrell Calderon MD at 6:06 EDT , Chest x-ray as interpreted by the emergency medicine physician reveals a moderate to large left-sided pleural effusion with trace to small right sided pleural effusion. Discharge Plan Triage Chief Complaint: General Illness ED Provider: Jarvis Bowles Dx/Rx/DC Orders Clinical Impression: Anemia, Current use of alf anticoagulation, End stage renal disease on dialysis, Non-rheumatic aortic stenosis, Hemoptysis Primary Care Provider: Yaw Singh Disposition Disposition: Acute Care Hospital [facility] Discharge Date/Time: 11/14/23 07:56
--- NOTE | 2023-11-14 07:44 | NURSING ---
PCU OBS MOSTELLER ANEMIA, HEMOPTYSIS
--- NOTE | 2023-11-14 09:20 | PCM.HP.STD ---
HPI - General General Date of Admission: 11/14/23 Date of Service: 11/14/23 Chief Complaint: Reported hemoptysis with mild acute on chronic anemia HPI Narrative NICKO ROSALES, is a 68 M who presented to [facility] ED on 11/14/2023 from SNF for reported episodes of hemoptysis. Patient was recently hospitalized here from 10/11-10/24 and again from 10/28-11/04. On first admission had sepsis secondary to bacteremia from Streptococcus possibly due to left knee septic arthritis. That hospitalization was complicated by severe LEELA with ATN requiring temporary HD catheter placement and initiation of dialysis. He apparently had a thrombus of the right IJ temporary catheter and this was removed with placement of left IJ catheter and initiation of Eliquis. Was eventually discharged to [facility] (the [place]) on 10/24. He re-presented here on 10/28 with worsening shortness of breath. Was found to have bilateral pleural effusions suspected secondary to his new renal failure. Had thoracentesis done on right side with 1.4 L of fluid removed with significant improvement in shortness of breath. Had increased clearance of fluid with dialysis as well. He had worsening anemia during that hospitalization and studies were consistent with iron deficiency anemia. GI evaluated and EGD on 11/01 showed oozing gastric ulcer that was treated with heater probe. He was started on a PPI twice daily and Eliquis was restarted on discharge back to the [place] on 11/05. Patient presented from the [place] this morning after apparently having an episode of coughing up bright red blood shortly after waking up this morning. On arrival to the ED, was noted to have dried blood in the bilateral nares. Hemoglobin was 6.8, slightly down from 7.6 on 11/11. Chest x-ray showed stable large left and small right pleural effusions. CTA chest abdomen pelvis showed no PE, no other concerning findings. Was suspected that patient had a nosebleed possibly due to dryness from chronic nasal cannula use. ED ordered 1 unit of blood to be transfused for patient and it was noted the patient would also need dialysis today; for these reasons, hospitalist was contacted for admission. I saw the patient at bedside on the floor shortly after arriving over the ED, was present. Patient was somewhat fatigued appearing but otherwise sitting up comfortably in bed, in no acute distress. He had not had any further episodes of nosebleed or coughing up blood since arrival to the ED. The unit of blood was running in his IV when I saw him. He denied any acute pain or discomfort. Denied any acute concerns at this time. [facility] Medical History Thrombus of venous dialysis catheter ESRD (end stage renal disease) on dialysis Acute respiratory insufficiency Medical non-compliance Acute exacerbation of chronic heart failure Chronic kidney disease (CKD) Pleural effusion Dyspnea Acute kidney injury Adenocarcinoma of esophagus LEELA (acute kidney injury) Non-smoker Esophageal carcinoma Atherosclerosis of coronary artery of [place] heart without angina pectoris 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 Essential (primary) hypertension Non-rheumatic aortic stenosis Syncope and collapse Hyperlipidemia Atherosclerotic heart disease of [place] coronary artery with other forms of angina pectoris Encounter for long-term current use of high risk medication abnormal stress test Angina pectoris Exertional chest pain URI (upper respiratory infection) Home Medications ?Medication ?Instructions ?Recorded ?Last Taken ?Type aspirin 81 mg chewable tablet 81 mg PO DAILY@0800 HEALTH 01/23/14 10/10/23 History atorvastatin 80 mg tablet 80 mg PO QHS CHOLESTEROL #90 tabs 05/15/22 10/10/23 Rx ezetimibe 10 mg tablet 10 mg PO DAILY CHOLESTEROL #90 tabs 05/15/22 10/10/23 Rx cefazolin 2 gram intravenous 2 g IV .see below 33 days 10/23/23 Unknown Rx solution acetaminophen 325 mg tablet 650 mg (2 x 325 mg) PO Q6H PRN PRN 10/25/23 Unknown Rx Pain 1-10 Or Fever >100.7 #0 tabs apixaban 5 mg tablet (Eliquis) 10 mg (2 x 5 mg) PO BID #0 tabs 10/25/23 Unknown Rx melatonin 3 mg tablet 3 mg PO QHS PRN PRN Insomnia #0 10/25/23 Unknown Rx tabs metoprolol tartrate 25 mg tablet 25 mg PO BID #0 tabs 10/25/23 Unknown Rx pantoprazole 40 mg tablet,delayed 40 mg PO BID #0 tabs 10/25/23 Unknown Rx release polyethylene glycol 3350 17 17 g PO BID #119 grams 10/25/23 Unknown Rx gram/dose oral powder (Miralax) sennosides 8.6 mg-docusate sodium 2 tab PO BID #0 tabs 10/25/23 Unknown Rx 50 mg tablet (Stimulant Laxative Plus) Allergy/AdvReac Type Severity Reaction Status Date / Time No Known Allergies Allergy Verified 10/28/23 23:34 Family History Father Heart disease Myocardial infarction Hypertension Brother Hypertension Sister Heart disease Myocardial infarction Surgical History History of aortic valve replacement (03/03/19) History of coronary artery stent placement (12/31/18) H/O coronary artery bypass surgery (09/18/02) History of tonsillectomy History of hernia repair Social History Smoking Status: Never smoker alcohol intake: never substance use type: does not use caffeine: No what type of physical activity do you participate in: walking frequency: daily ROS Constitutional Constitutional: Reports fatigue and weakness; Denies chills or fever(s) Eyes Eyes: Denies change in vision Cardiovascular Cardiovascular: Denies chest pain Respiratory/Chest Respiratory/Chest: Denies cough, shortness of breath at rest or shortness of breath with exertion Gastrointestinal Gastrointestinal: Denies abdominal pain Genitourinary Genitourinary: Denies dysuria Musculoskeletal Musculoskeletal: Denies arthralgias or myalgias Vital Signs Vital Signs Vital Signs: 11/14/23 04:33 11/14/23 04:40 11/14/23 04:43 Temperature 98.2 F Temperature Source Oral Pulse Rate 89 Respiratory Rate 34 H Respiratory Effort Normal Respiratory Depth Respiratory Pattern Normal Blood Pressure 116/77 Blood Pressure Mean 90 Blood Pressure Source Blood Pressure Position Blood Pressure Location Pulse Ox 99 100 Oxygen Delivery Method Nasal Cannula Nasal Cannula Oxygen Flow Rate (L/min) 2 2 11/14/23 05:40 11/14/23 06:06 11/14/23 07:00 Temperature 97.4 F L Temperature Source Oral Pulse Rate 86 84 88 Respiratory Rate 32 H 19 H 24 H Respiratory Effort Respiratory Depth Respiratory Pattern Blood Pressure 115/77 123/81 H 122/77 H Blood Pressure Mean 89 95 92 Blood Pressure Source Blood Pressure Position Blood Pressure Location Pulse Ox 99 95 98 Oxygen Delivery Method Nasal Cannula Nasal Cannula Nasal Cannula Oxygen Flow Rate (L/min) 2 2 2 11/14/23 07:51 11/14/23 08:41 11/14/23 08:44 Temperature 97.5 F L 97.8 F Temperature Source Temporal Pulse Rate 119 H 117 H Respiratory Rate 23 H 16 Respiratory Effort Normal Non-Labored Respiratory Depth Normal Respiratory Pattern Normal Blood Pressure 132/80 H 122/89 H Blood Pressure Mean 97 100 Blood Pressure Source Monitor Blood Pressure Position Semi-Fowlers Blood Pressure Location Left Arm Pulse Ox 99 98 Oxygen Delivery Method Nasal Cannula Nasal Cannula Oxygen Flow Rate (L/min) 1 1 11/14/23 08:51 11/14/23 09:00 Temperature 97.3 F L 97.6 F L Temperature Source Temporal Temporal Pulse Rate 106 H 107 H Respiratory Rate 16 16 Respiratory Effort Respiratory Depth Respiratory Pattern Blood Pressure 122/89 H 131/85 H Blood Pressure Mean 100 100 Blood Pressure Source Monitor Blood Pressure Position Semi-Fowlers Blood Pressure Location Left Arm Pulse Ox 98 98 Oxygen Delivery Method Nasal Cannula Nasal Cannula Oxygen Flow Rate (L/min) 1 1 Weight Weight: 85.3 kg Body Mass Index (BMI) 26.9 Physical Exam Const alert, oriented x3, no apparent distress and average body habitus Constitutional Narrative: Elderly male, chronically ill-appearing, fatigued appearing, otherwise sitting up comfortably in bed, conversing normally, in no acute distress. General Appearance: cooperative and comfortable HEENT normocephalic, head/scalp atraumatic, hearing grossly normal bilaterally and nasal mucous membranes and turbinates normal Eyes PERRL, EOMs intact bilaterally and conjunctivae normal Neck full ROM Chest inspection of chest normal Resp normal respiratory effort and no use of accessory muscles Resp Narrative: Breathing comfortably on room air at rest. Diminished breath sounds in bilateral lung bases, worse on left with some crackles noted in mid lung zones bilaterally. No wheezing noted. Cardio regular rate, regular rhythm, no murmurs and peripheral pulses 2+ throughout GI normal to inspection, nondistended, normoactive bowel sounds, soft to palpation, non-tender and non-distended Back/Spine normal ROM Extremity normal to inspection, full ROM and no pedal edema Skin no rashes or lesions noted Neuro moves all extremities and no focal motor deficits Speech: speech normal Psych mental status grossly normal Results Lab / Micro Data 11/14/23 05:50 11/14/23 05:50 Labs: Laboratory Results - last 24 hr 11/14/23 05:50: WBC 7.2, RBC 2.50 L, Hgb 6.8 L, Hct 22.7 L, MCV 90.8, MCH 27.2, MCHC 30.0 L, RDW Std Deviation 52.4 H, RDW Coeff of Marcos 16.2 H, Plt Count 177, MPV 10.1, Immature Gran % (Auto) 2.400 H, Neut % (Auto) 82.9 H, Lymph % (Auto) 6.5 L, [place] % (Auto) 7.5, Eos % (Auto) 0.3, Baso % (Auto) 0.4, Absolute Neuts (auto) 6.0, Absolute Lymphs (auto) 0.47 L, Nucleated RBC % 0, PT 32.4 H, INR 3.2, APTT 48.1 H, Sodium 135 L, Potassium 3.9, Chloride 97 L, Carbon Dioxide 30.0, Anion Gap 8, BUN 51 H, Creatinine 6.07 H, Estim Creat Clear Calc 12.92, Est GFR (MDRD) Af Amer 12 L, Est GFR (MDRD) Non-Af 10 L, BUN/Creatinine Ratio 8.4 L, Glucose 101, Lactic Acid 0.8, Calcium 7.7 L, Phosphorus 4.2 11/14/23 06:55: Blood Type A POSITIVE, Antibody Screen NEGATIVE, Crossmatch See Detail Imaging Radiology Impression Chest X-Ray 11/14/23 05:09 IMPRESSION: Stable large left and small right pleural effusions with likely adjacent atelectasis versus other airspace disease, to include pneumonia or neoplastic process. Recommend follow-up to resolution. Electronically Signed: Jarrell Calderon MD at 6:06 EDT , Chest/Abdomen/Pelvis CTA 11/14/23 07:15 IMPRESSION: 1. Large left and small right pleural effusions, partially loculated, but decreased in size compared with the October 28 exam. 2. Surgical changes in the posterior mediastinum which may indicate a partial esophagectomy with gastric pull-through. 3. No gastric ulcer identified by CT. Consider follow-up with endoscopy. 4. Body wall edema. Electronically Signed: Hemanth Haynes MD at 8:01 EDT , Assessment & Plan Assessment/Plan (1) Acute on chronic anemia: (2) End stage renal disease on dialysis: (3) Current use of lobsterman anticoagulation: PLAN: Plan Patient is a 68-year-old male who presented [facility] ED on 11/14/2023 with concern for hemoptysis. 1. Suspected mild nosebleed with acute on chronic anemia ? Admit under observation status to PCU. Hemoglobin 6.8 on admit, slightly down from 7.6 on 11/11. S/p 1 unit of packed red blood cells transfused on 11/13. Follow-up a.m. CBC on 11/14. Holding home Eliquis, will likely be okay to restart on discharge. Suspected that reported hemoptysis was secondary to mild nosebleed exacerbated by Eliquis given normal chest x-ray and normal CTA chest abdomen pelvis on admit with no recurrence of bleeding since admission. 2. Recent severe LEELA with ATN leading to ESRD on HD with chronic bilateral pleural effusions ? Nephrology consulted. Chest imaging on admit showed stable bilateral effusions. Patient stable on room air at rest. Continue HD per nephrology recommendations. 3. Chronic debility ? PT/OT/case management consulted. Planning for discharge back to the [facility] likely on 11/14. 4. Recent history of right IJ thrombus on Eliquis; recent history of worsening anemia due to peptic ulcer disease ? Holding home Eliquis as above. Had EGD on 11/01 that showed oozing gastric ulcer that was cauterized. Continue home PPI twice daily. Chronic medical conditions: ? History of CAD s/p CABG and stenting, history of aortic valve replacement: Continue home aspirin, statin, Zetia, Lopressor. ? Constipation: Continue home senna and MiraLAX. ? Recent history of sepsis secondary to Streptococcus bacteremia: Completed course of antibiotics during prior hospitalization. ? History of esophageal carcinoma s/p surgical resection DVT prophylaxis: SCDs CODE STATUS: Full code, verified Expected disposition: Back to [facility], 1 to 2 days Total clinical time spent by myself addressing the patient's medical issues, reviewing all the data, and collaborating with patient's care team: 55 minutes. Charges/Coding Visit Charges Inpatient E&M: 28714 Init Hosp L2
[2023-11-14] MEDS: Metoprolol Tartrate 25 MG Tablet PO ×2 (10:26→22:36)
[2023-11-14] MEDS: Ezetimibe 10 MG Tablet PO (10:26)
[2023-11-14] MEDS: Aspirin 81 MG TAB.CHEW PO (10:26)
[2023-11-14] MEDS: Senna/Docusate Sodium 1 Tablet 2 TABLET PO ×2 (10:26→22:37)
[2023-11-14] MEDS: Pantoprazole Sodium 40 MG Tablet PO ×2 (10:26→22:37)
[2023-11-14] MEDS: PureFlow B 4K Dialysis Soln 1 BAG BAG 6 BAG PF (12:33)
[2023-11-14] MEDS: 0.9% Saline Lock 10 ML Syringe IV (12:33)
[2023-11-14] MEDS: 0.9% Normal Saline 1,000 ML IV.SOLN. 1000 ML OPERA.SITE (12:33)
--- NOTE | 2023-11-14 12:49 | CASEMGMT ---
Discharge Planning Met with patient and his . He wishes to return to [place] upon discharge. and [facility] updated. Tata Nieto DC Planning Asst.
[2023-11-14] MEDS: Heparin 10,000 UNITS/10 ML Vial IV (15:36)
--- NOTE | 2023-11-14 15:47 | CON.PCM.RE_ITS ---
Assessment & Plan Assessment/Plan (1) End stage renal disease on dialysis: PLAN: ESRD. Patient is due for dialysis today and has been prescribed 1. Later on has been seen during dialysis session and the only issue is access needs to be reversed which is a common issue with left-sided tunneled hemodialysis catheters. Otherwise he tolerates ultrafiltration of 3-1/2 L, he is fluid overloaded based on presence of lower extremity edema. Next session will be Sunday HPI Consult Data Date of Consult: 11/14/23 HPI Narrative Reason for Consultation: ESRD HPI Narrative: NICKO ROSALES, is a 68 M who presents to [facility] emergency room after a bout of hemoptysis this morning. He was just recently hospitalized here with sepsis and has been started on dialysis during that admission, he has got advanced kidney insufficiency at the baseline and now ESRD. He also has developed thrombus at the end of right sided tunneled internal jugular hemodialysis catheter and has been on blood thinner since. Catheter now is on the left IJ and it has been reversed during dialysis today. He has done CT angiogram of his lungs and that that did not reveal any pulmonary embolism. Patient later on has been seen and evaluated during dialysis session, catheter needed to be reversed, but otherwise doing okay. I have increased the goal to 3-1/2 L as he is still quite edematous. Blood pressure is stable, tolerates ultrafiltration PFSH Medical History Thrombus of venous dialysis catheter ESRD (end stage renal disease) on dialysis Acute respiratory insufficiency Medical non-compliance Acute exacerbation of chronic heart failure Chronic kidney disease (CKD) Pleural effusion Dyspnea Acute kidney injury Adenocarcinoma of esophagus LEELA (acute kidney injury) Non-smoker Esophageal carcinoma Atherosclerosis of coronary artery of [place] heart without angina pectoris 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 Essential (primary) hypertension Non-rheumatic aortic stenosis Syncope and collapse Hyperlipidemia Atherosclerotic heart disease of [place] coronary artery with other forms of angina pectoris Encounter for long-term current use of high risk medication abnormal stress test Angina pectoris Exertional chest pain URI (upper respiratory infection) Home Medications ?Medication ?Instructions ?Recorded ?Last Taken ?Type aspirin 81 mg chewable tablet 81 mg PO DAILY@0800 HEALTH 01/23/14 10/10/23 History atorvastatin 80 mg tablet 80 mg PO QHS CHOLESTEROL #90 tabs 05/15/22 10/10/23 Rx ezetimibe 10 mg tablet 10 mg PO DAILY CHOLESTEROL #90 tabs 05/15/22 10/10/23 Rx cefazolin 2 gram intravenous 2 g IV .see below 33 days 10/23/23 Unknown Rx solution acetaminophen 325 mg tablet 650 mg (2 x 325 mg) PO Q6H PRN PRN 10/25/23 Unknown Rx Pain 1-10 Or Fever >100.7 #0 tabs apixaban 5 mg tablet (Eliquis) 10 mg (2 x 5 mg) PO BID #0 tabs 10/25/23 Unknown Rx melatonin 3 mg tablet 3 mg PO QHS PRN PRN Insomnia #0 10/25/23 Unknown Rx tabs metoprolol tartrate 25 mg tablet 25 mg PO BID #0 tabs 10/25/23 Unknown Rx pantoprazole 40 mg tablet,delayed 40 mg PO BID #0 tabs 10/25/23 Unknown Rx release polyethylene glycol 3350 17 17 g PO BID #119 grams 10/25/23 Unknown Rx gram/dose oral powder (Miralax) sennosides 8.6 mg-docusate sodium 2 tab PO BID #0 tabs 10/25/23 Unknown Rx 50 mg tablet (Stimulant Laxative Plus) Allergy/AdvReac Type Severity Reaction Status Date / Time No Known Allergies Allergy Verified 10/28/23 23:34 Family History Father Heart disease Myocardial infarction Hypertension Brother Hypertension Sister Heart disease Myocardial infarction Surgical History History of aortic valve replacement (03/03/19) History of coronary artery stent placement (12/31/18) H/O coronary artery bypass surgery (09/18/02) History of tonsillectomy History of hernia repair Social History Smoking Status: Never smoker alcohol intake: never substance use type: does not use caffeine: No what type of physical activity do you participate in: walking frequency: daily ROS ROS Narrative 14 point comprehensive system review was performed, all positives as well as pertinent negatives are reflected in current H&P Physical Exam Narrative Patient has been seen and examined during dialysis session. That he appears to be stable Const alert, oriented x3, no apparent distress and average body habitus General Appearance: well developed Nutritional Appearance: thin HEENT normocephalic Head and Scalp: atraumatic Resp no use of accessory muscles and clear to auscultation bilaterally GI non-tender and non-distended Auscultation: normoactive bowel sounds Palpation: soft Extremity General Extremity: edema right and left Skin no rashes or lesions noted Neuro Sensorium / Orientation: awake and alert Psych cooperative Lab / Micro Data Attestation: I reviewed the patient's lab results. 11/14/23 05:50 11/14/23 05:50 Labs: Laboratory Results - last 24 hr 11/14/23 05:50: WBC 7.2, RBC 2.50 L, Hgb 6.8 L, Hct 22.7 L, MCV 90.8, MCH 27.2, MCHC 30.0 L, RDW Std Deviation 52.4 H, RDW Coeff of Marcos 16.2 H, Plt Count 177, MPV 10.1, Immature Gran % (Auto) 2.400 H, Neut % (Auto) 82.9 H, Lymph % (Auto) 6.5 L, [place] % (Auto) 7.5, Eos % (Auto) 0.3, Baso % (Auto) 0.4, Absolute Neuts (auto) 6.0, Absolute Lymphs (auto) 0.47 L, Nucleated RBC % 0, PT 32.4 H, INR 3.2, APTT 48.1 H, Sodium 135 L, Potassium 3.9, Chloride 97 L, Carbon Dioxide 30.0, Anion Gap 8, BUN 51 H, Creatinine 6.07 H, Estim Creat Clear Calc 12.92, E st GFR (MDRD) Af Amer 12 L, Est GFR (MDRD) Non-Af 10 L, BUN/Creatinine Ratio 8.4 L, Glucose 101, Lactic Acid 0.8, Calcium 7.7 L, Phosphorus 4.2 11/14/23 06:55: Blood Type A POSITIVE, Antibody Screen NEGATIVE, Crossmatch See Detail Imaging Radiology Impression Chest X-Ray 11/14/23 05:09 IMPRESSION: Stable large left and small right pleural effusions with likely adjacent atelectasis versus other airspace disease, to include pneumonia or neoplastic process. Recommend follow-up to resolution. Electronically Signed: Jarrell Calderon MD at 6:06 EDT , Chest/Abdomen/Pelvis CTA 11/14/23 07:15 IMPRESSION: 1. Large left and small right pleural effusions, partially loculated, but decreased in size compared with the October 28 exam. 2. Surgical changes in the posterior mediastinum which may indicate a partial esophagectomy with gastric pull-through. 3. No gastric ulcer identified by CT. Consider follow-up with endoscopy. 4. Body wall edema. Electronically Signed: Hemanth Haynes MD at 8:01 EDT ,
[2023-11-14] MEDS: Acetaminophen 325 MG Tablet 650 MG PO (22:36)
[2023-11-14] MEDS: Menthol/Lanolin/Calamine/Znox 113 GM Tube 1 APPLIC TOPICAL (22:37)
[2023-11-14] MEDS: Atorvastatin Calcium 80 MG Tablet PO (22:41)
[2023-11-14] MEDS: MELATONIN 3 MG TABLET PO (22:41)
[2023-11-15] MEDS: Menthol/Lanolin/Calamine/Znox 113 GM Tube 1 APPLIC TOPICAL ×3 (04:56→22:23)
[2023-11-15] MEDS: Acetaminophen 325 MG Tablet 650 MG PO (05:01)
[2023-11-15 06:01] LABS: Hematocrit 26.4 % (40-54); Mean Corp Hgb Conc 30.3 g/dL (32-36); Mean Corpuscular Hgb 27.3 pg (27.0-32.0); Mean Corpuscular Volume 90.1 fL (80-94); Mean Platelet Vol. 10.1 fl (6.2-12.0); Platelet Count 167 K/mm3 (150-450); RBC Distribution Width CV 16.5 % (11.6-14.6); RBC Distribution Width SD 52.9 fl (35.1-43.9); Red Blood Count 2.93 M/mm3 (4.6-6.2); White Blood Count 5.9 K/mm3 (4.4-11.0)
[2023-11-15 06:26] LABS: Anion Gap 6 (5-15); BUN 46 mg/dL (7-18); BUN/Creat Ratio 8.9 RATIO (10-20); Calcium,Total 7.8 mg/dL (8.5-10.1); Chloride 100 mmol/L (98-107); Creatinine, Serum 5.17 mg/dL (0.70-1.30); EST Glomerular Filtration Rate 12 mL/min (>60); Est Glom Filt Rate - Afr Amer 14 mL/min (>60); Estimated Creatinine Clearance 13.92 ml/min; Glucose 127 mg/dL (74-106); Potassium 4.2 mmol/L (3.5-5.1); Sodium Level 133 mmol/L (136-145)
[2023-11-15 07:30] VITALS: BP 113/79; PULSE 78; RESP 17; TEMP 36.6; O2SAT 98
[2023-11-15 07:33] VITALS: BP 113/79; PULSE 78
[2023-11-15] MEDS: Aspirin 81 MG TAB.CHEW PO (07:33)
[2023-11-15] MEDS: Metoprolol Tartrate 25 MG Tablet PO ×2 (07:33→22:23)
[2023-11-15] MEDS: Polyethylene Glycol 3350 17 GM PACKET PO (07:34)
[2023-11-15] MEDS: Pantoprazole Sodium 40 MG Tablet PO ×2 (07:35→22:23)
[2023-11-15] MEDS: Senna/Docusate Sodium 1 Tablet 2 TABLET PO ×2 (07:35→22:23)
[2023-11-15] MEDS: Ezetimibe 10 MG Tablet PO (07:36)
--- NOTE | 2023-11-15 09:28 | CASEMGMT ---
Discharge Planning Updates sent to [facility] with note that patient may return today. Tata Nieto DC Planning Asst.
[2023-11-15 09:52] VITALS: O2SAT 96
[2023-11-15 12:02] LABS: Hematocrit 24.2 % (40-54); Hemoglobin 7.5 g/dL (13.0-16.5)
--- NOTE | 2023-11-15 12:31 | PCM.PN.HOSP ---
Subjective Subjective Doing well, no issues overnight Objective Data Objective Data Vital Signs: Vital Signs Temp Pulse Resp BP Pulse Ox O2 Del Method O2 Flow Rate 97.8 F 78 17 113/79 96 Nasal Cannula 1 11/15/23 07:30 11/15/23 07:33 11/15/23 07:30 11/15/23 07:33 11/15/23 09:52 11/15/23 09:52 11/15/23 09:52 Oxygen Flow Rate (L/min) 1 Oxygen Delivery Method Nasal Cannula Weight: 187 lb 9.814 oz Body Mass Index (BMI) 26.9 Intake & Output: Intake and Output for Last 24 Hours 11/14/23 11/15/23 11/16/23 03:59 03:59 03:59 Intake Total 646 / 646 Output Total 4400 / 4400 Balance -3754 / -3754 Lab / Micro Data 11/15/23 11:53 11/15/23 05:36 Labs: Laboratory Results - last 24 hr 11/15/23 05:36: WBC 5.9, RBC 2.93 L, Hgb 8.0 L, Hct 26.4 L, MCV 90.1, MCH 27.3, MCHC 30.3 L, RDW Std Deviation 52.9 H, RDW Coeff of Marcos 16.5 H, Plt Count 167, MPV 10.1, Sodium 133 L, Potassium 4.2, Chloride 100, Carbon Dioxide 27.0, Anion Gap 6, BUN 46 H, Creatinine 5.17 H, Estim Creat Clear Calc 13.92, Est GFR (MDRD) Af Amer 14 L, Est GFR (MDRD) Non-Af 12 L, BUN/Creatinine Ratio 8.9 L, Glucose 127 H, Calcium 7.8 L 11/15/23 11:53: Hgb 7.5 L, Hct 24.2 L Physical Exam Narrative General: Alert, Oriented x3, Cooperative, No apparent distress HEENT: Atraumatic, PERRLA, EOMI, Normocephalic Oral: Moist Mucosa Neck: Supple, No JVD Lungs: Diminished, Normal air movement, No rhonchi, No wheeze, No rales Cardiovascular: Regular rate, Regular Rhythm, Normal S1, Normal S2, No murmurs, tunneled dialysis catheter on the left chest Abdomen: Soft, Non Tender, Non-Distended, No Hepato-splenomegaly Extremities: Trace edema, Capillary Refill Less than 3 Seconds Skin: No rashes, No breakdown Musculoskeletal: No Tenderness to Palpation of Joints or Extremities Neurological: No focal neurological deficits, Motor Exam 5/5 strength throughout, Sensory exam intact to light touch and pain Psych/Mental Status: Normal Affect, Appropriate Assessment & Plan Assessment/Plan (1) Acute on chronic anemia: (2) End stage renal disease on dialysis: (3) Current use of senior care anticoagulation: PLAN: Plan 1. Suspected mild nosebleed with acute on chronic anemia ? Admit under observation status to PCU. Hemoglobin 6.8 on admit, slightly down from 7.6 on 11/11. S/p 1 unit of packed red blood cells transfused on 11/13. Follow-up a.m. CBC on 11/14. Holding home Eliquis, will likely be okay to restart on discharge. Suspected that reported hemoptysis was secondary to mild nosebleed exacerbated by Eliquis given normal chest x-ray and normal CTA chest abdomen pelvis on admit with no recurrence of bleeding since admission. 11/15/2023: Hemoglobin this morning is 8.0, recheck is down to 7.5 given his multiple recent readmissions and the need for transfusion on this admission, will recheck hemoglobin tomorrow morning. Will also obtain a Hemoccult pending a BM, in light of the history of a oozing gastric ulcer that was seen on 11/02/2023 and will continue with his stool softeners 2. Recent severe LEELA with ATN leading to ESRD on HD with chronic bilateral pleural effusions ? Nephrology consulted. Chest imaging on admit showed stable bilateral effusions. Patient stable on room air at rest. Continue HD per nephrology recommendations. 3. Chronic debility ? PT/OT/case management consulted. Planning for discharge back to the [facility] likely on 11/14. 4. Recent history of right IJ thrombus on Eliquis; recent history of worsening anemia due to peptic ulcer disease ? Holding home Eliquis as above. Had EGD on 11/01 that showed oozing gastric ulcer that was cauterized. Continue home PPI twice daily. Chronic medical conditions: ? History of CAD s/p CABG and stenting, history of aortic valve replacement: Continue home aspirin, statin, Zetia, Lopressor. ? Constipation: Continue home senna and MiraLAX. ? Recent history of sepsis secondary to Streptococcus bacteremia: Completed course of antibiotics during prior hospitalization. ? History of esophageal carcinoma s/p surgical resection DVT: SCDs Charges/Coding Visit Charges Inpatient E&M: 22856 Subs Hosp L2
--- NOTE | 2023-11-15 13:39 | PN.RENAL_ITS ---
Subjective Subjective Resting in bed. No overnight events Objective Data Objective Data Vital Signs: Vital Signs Temp Pulse Resp BP Pulse Ox O2 Del Method O2 Flow Rate 97.8 F 78 17 113/79 96 Nasal Cannula 1 11/15/23 07:30 11/15/23 07:33 11/15/23 07:30 11/15/23 07:33 11/15/23 09:52 11/15/23 09:52 11/15/23 09:52 Oxygen Flow Rate (L/min) 1 Oxygen Delivery Method Nasal Cannula Weight: 85.1 kg Body Mass Index (BMI) 26.9 Intake & Output: Intake and Output for Last 24 Hours 11/13/23 11/14/23 11/15/23 23:59 23:59 23:59 Intake Total 546 / 646 100 / 100 Output Total 4200 / 4400 200 / 200 Balance -3654 / -3754 -100 / -100 Lab / Micro Data 11/15/23 11:53 11/15/23 05:36 Labs: Laboratory Results - last 24 hr 11/15/23 05:36: WBC 5.9, RBC 2.93 L, Hgb 8.0 L, Hct 26.4 L, MCV 90.1, MCH 27.3, MCHC 30.3 L, RDW Std Deviation 52.9 H, RDW Coeff of Marcos 16.5 H, Plt Count 167, MPV 10.1, Sodium 133 L, Potassium 4.2, Chloride 100, Carbon Dioxide 27.0, Anion Gap 6, BUN 46 H, Creatinine 5.17 H, Estim Creat Clear Calc 13.92, Est GFR (MDRD) Af Amer 14 L, Est GFR (MDRD) Non-Af 12 L, BUN/Creatinine Ratio 8.9 L, Glucose 127 H, Calcium 7.8 L 11/15/23 11:53: Hgb 7.5 L, Hct 24.2 L Physical Exam Narrative Alert and orient x 3, no apparent distress S1, S2, RRR Lung sounds clear Abdomen soft ++ Edema bilateral legs Tunneled HD catheter dressing clean, dry and intact Assessment & Plan Assessment/Plan (1) End stage renal disease on dialysis: PLAN: - Dialysis requiring acute kidney injury secondary to biopsy-proven ATN (no evidence of postinfection GN). On hemodialysis at [facility] Sunday. First HD 10/15/2023. No acute indication for [employer] today. Patient last dialyzed yesterday with fluid removal. Likely next dialysis will be tomorrow. Will continue to remove fluid as patient blood pressure tolerates. Dry weight not determined yet. Will continue to monitor for renal recovery. Hold metoprolol am of HD. -Right IJ thrombosis secondary to previous dialysis catheter; was started on Eliquis, currently on hold for acute anemia. labs in am, checking stool OB. Hgb 8.0 this am. Patient will be receiving iron and sandro at outpatient dialysis.
[2023-11-15 14:00] VITALS: BP 110/74; PULSE 78; RESP 15; TEMP 36.9; O2SAT 99
--- NOTE | 2023-11-15 14:41 | CHAPLAIN ---
Type of Pastoral Visit _x__ Initial Visit ___ Follow-up Visit ___ On-call Visit ___ General Patient Visit ___ Spiritual Assessment ___ Family Conference ___ Bereavement ___ Rapid Response ___ Code Blue ___ Other (describe below) Pastoral Care Referral From _x__ Patient ___ Family ___ Nurse ___ Physician ___ Enrichment Teacher ___ Grab Operator ___ Other (describe below) Sacrament/Intervention _x__ Active listening ___ Anointing ___ Mandaeism ___ Bereavement ___ Communion ___ Lynne exploration ___ _x__ Life review _x_ Prayer ___ Reconciliation ___ Sacrament of Sick _x__ Supportive presence ___ Wedding ___ Other (describe below) Pastoral Comments patient was seen recently in a previous admission; pt gives updates but also shares that today is going better than yesterday; pt speaks of his lynne and that there are more things that I need to do and it's not my time yet; lutheran aspects of these comments are explored; presence and prayer given with time to listen to his thoughts
--- NOTE | 2023-11-15 15:13 | CASEMGMT ---
Met with patient to complete SANCHEZ form. SANCHEZ form explained to patient who voiced understanding and signed form. Original form placed in pt?s chart and copy provided to patient. Tata Nieto, Discharge Planning Asst
[2023-11-15] MEDS: Ondansetron 4 MG/2 ML Vial IV ×2 (15:27→18:49)
[2023-11-15 22:16] VITALS: BP 126/86; PULSE 85; RESP 16; TEMP 36.4; O2SAT 99
[2023-11-15 22:23] VITALS: PULSE 85
[2023-11-15] MEDS: Atorvastatin Calcium 80 MG Tablet PO (22:23)
[2023-11-15] MEDS: 0.9% Saline Lock 10 ML Syringe IV (22:24)
[2023-11-16] VITALS (13 sets, daily range): BP systolic 108–209; BP diastolic 77–88; PULSE 76–95; RESP 14–18; TEMP 36.5–36.6; O2SAT 96–99; BMI 24.9; BMI 26.9; BMI 24.2
[2023-11-16] MEDS: Menthol/Lanolin/Calamine/Znox 113 GM Tube 1 APPLIC TOPICAL (05:13)
[2023-11-16 06:08] LABS: Absolute Lymphocyte Count 0.56 X10^3/uL (0.83-4.51); Absolute Neutrophil Count 4.9 X10^3/uL (2.0-7.7); Basophil# 0.04 X10^3/uL; Basophil% 0.6 % (0-1); Eosinophil# 0.04 X10^3/uL; Eosinophils% 0.6 % (0-5); Hematocrit 25.7 % (40-54); Hemoglobin 7.8 g/dL (13.0-16.5); Lymphocyte # 0.56 X10^3/ul (0.83-4.51); Lymphocyte % 8.9 % (19-41); Mean Corp Hgb Conc 30.4 g/dL (32-36); Mean Corpuscular Hgb 27.5 pg (27.0-32.0); Mean Corpuscular Volume 90.5 fL (80-94); Mean Platelet Vol. 10.2 fl (6.2-12.0); Monocyte% 11.1 % (0-10); NRBC Flagged by Analyzer 0 % (0-5); Neutrophil # 4.85 X10^3/uL (2.7-7.7); Neutrophil % 76.7 % (47-70); POSITIVE DIFFERENTIAL YES; Platelet Count 166 K/mm3 (150-450); RBC Distribution Width CV 16.4 % (11.6-14.6); RBC Distribution Width SD 53.6 fl (35.1-43.9); Red Blood Count 2.84 M/mm3 (4.6-6.2); White Blood Count 6.3 K/mm3 (4.4-11.0)
[2023-11-16 06:42] LABS: Anion Gap 7 (5-15); BUN 56 mg/dL (7-18); BUN/Creat Ratio 8.4 RATIO (10-20); Calcium,Total 7.6 mg/dL (8.5-10.1); Chloride 99 mmol/L (98-107); Creatinine, Serum 6.69 mg/dL (0.70-1.30); EST Glomerular Filtration Rate 9 mL/min (>60); Est Glom Filt Rate - Afr Amer 11 mL/min (>60); Estimated Creatinine Clearance 10.76 ml/min; Glucose 104 mg/dL (74-106); Potassium 4.4 mmol/L (3.5-5.1); Sodium Level 133 mmol/L (136-145)
--- NOTE | 2023-11-16 08:26 | PCM.TXEXTCAR ---
Diet Diet Order/Speech Therapy: 11/14/23 14:01 Diet: Renal - General Food consistency:: Regular Liquid Consistency:: Regular/Thin Type of Dietary Supplement:: Nepro Diet Comments: 120mL Nepro w/meals Routine Orders/Code Status Routine Lab Work: CBC and BMP Code Status: Full Code Wound(s) buttock: Wound Type: Pressure Injury Therapies Physical Therapy: Eval and Treat Occupational Therapy: Eval and Treat Problem/Diagnosis (1) End stage renal disease on dialysis: Status: Acute Code(s): N18.6 - End stage renal disease; Z99.2 - Dependence on renal dialysis Plan 1. Suspected mild nosebleed with acute on chronic anemia ? Admit under observation status to PCU. Hemoglobin 6.8 on admit, slightly down from 7.6 on 11/11. S/p 1 unit of packed red blood cells transfused on 11/13. Follow-up a.m. CBC on 11/14. Holding home Eliquis, will likely be okay to restart on discharge. Suspected that reported hemoptysis was secondary to mild nosebleed exacerbated by Eliquis given normal chest x-ray and normal CTA chest abdomen pelvis on admit with no recurrence of bleeding since admission. 11/15/2023: Hemoglobin this morning is 8.0, recheck is down to 7.5 given his multiple recent readmissions and the need for transfusion on this admission, will recheck hemoglobin tomorrow morning. Will also obtain a Hemoccult pending a BM, in light of the history of a oozing gastric ulcer that was seen on 11/02/2023 and will continue with his stool softeners 2. Recent severe LEELA with ATN leading to ESRD on HD with chronic bilateral pleural effusions ? Nephrology consulted. Chest imaging on admit showed stable bilateral effusions. Patient stable on room air at rest. Continue HD per nephrology recommendations. 3. Chronic debility ? PT/OT/case management consulted. Planning for discharge back to the [facility] likely on 11/14. 4. Recent history of right IJ thrombus on Eliquis; recent history of worsening anemia due to peptic ulcer disease ? Holding home Eliquis as above. Had EGD on 11/01 that showed oozing gastric ulcer that was cauterized. Continue home PPI twice daily. Chronic medical conditions: ? History of CAD s/p CABG and stenting, history of aortic valve replacement: Continue home aspirin, statin, Zetia, Lopressor. ? Constipation: Continue home senna and MiraLAX. ? Recent history of sepsis secondary to Streptococcus bacteremia: Completed course of antibiotics during prior hospitalization. ? History of esophageal carcinoma s/p surgical resection DVT: SCDs Allergies/Procedures Done in Hospital Allergies No Known Allergies Allergy (Verified 10/28/23 23:34) Procedures: Dialysis Type of Care/Length of Stay Estimated LOS: Convalescent Care Less Than 30 days Type of Care Needed: Skilled Rehab Potential: Fair Prognosis: Fair Additional Orders/Day of Discharge Day of Discharge: 11/16/23 Dietary and Speech Recommendations Dietitian Recommendations/Changes: Adjust diet to Renal diet. Will order 120ml PO nepro TID with meals. Will monitor weights. Reviewed and approved by Gladys Perdomo RD, LD Discharge Plan Admission Admit Date/Time: 11/15/23 14:30 Attending Provider: Kody Avila Primary Care Provider: Yaw Singh Consulting Providers: Usama Valladares Discharge Orders/Prescriptions Prescriptions: Continued atorvastatin 80 mg tablet 80 mg PO QHS Qty: 90 3RF ezetimibe 10 mg tablet 10 mg PO DAILY Qty: 90 3RF cefazolin 2 gram recon soln 2 g IV .see below 33 Days Rx Instructions: stop date 11/25/23. Dx: strep bacteremia. cefazolin iv with dialysis: 2gm on Mon, 2gm on Wed, 3gm on Fri. Weekly bmp and cbc. Fax to [phone]. acetaminophen 325 mg Tablet 650 mg PO Q6H PRN PRN (Reason: Pain 1-10 Or Fever >100.7) Qty: 0 0RF melatonin 3 mg Tablet 3 mg PO QHS PRN PRN (Reason: Insomnia) Qty: 0 0RF metoprolol tartrate 25 mg Tablet 25 mg PO BID Qty: 0 0RF sennosides-docusate sodium [Stimulant Laxative Plus] 8.6-50 mg Tablet 2 tab PO BID Qty: 0 0RF pantoprazole 40 mg Tablet,Delayed Release (Dr/Ec) 40 mg PO BID Qty: 0 0RF polyethylene glycol 3350 [Miralax] 17 gram/dose powder 17 g PO BID Qty: 119 0RF Held aspirin 81 MG tablet,chewable 81 mg PO DAILY@0800 Hold Instructions: Resume on 11/20/23. Patient Comments: HEART/BLOOD THINNER Eliquis 5 mg Tablet 10 mg PO BID Qty: 0 0RF Hold Instructions: Resume on 11/19/23. Rx Instructions: two twice a day for 13 doses, then one twice a day thereafter-take for 12 weeks Referrals / Follow Up: Yaw Singh MD [Primary Care Provider] - Disposition Disposition (needs filled in before D/C Order can be placed): Nursing Home Facility
--- NOTE | 2023-11-16 10:24 | CASEMGMT ---
Discharge Planning Discharge orders, signed med list, and transport time sent to [place] via [facility]. Physicians will transport patient by cot at 1p. Nursing, SW, patient, and his updated. Tata Nieto DC Planning Asst.
[2023-11-16] MEDS: 0.9% Normal Saline 1,000 ML IV.SOLN. 1000 ML OPERA.SITE (10:52)
[2023-11-16] MEDS: PureFlow B 2K Dialysis Soln 1 BAG 6 BAG PF (10:57)
--- NOTE | 2023-11-16 11:46 | PCM.DC.SUM ---
Providers Date of Admission: 11/15/23 Primary Care Physician: Dr. Yaw Singh MD Reason For Visit: ESRD ON HD, MILD ACUTE ON CHRONIC ANEMIA Diagnosis Discharge Diagnosis (1) End stage renal disease on dialysis: Status: Acute Code(s): N18.6 - End stage renal disease; Z99.2 - Dependence on renal dialysis Medications at Discharge Home Medications aspirin 81 mg chewable tablet 81 mg PO DAILY@0800 HEALTH 01/23/14 atorvastatin 80 mg tablet 80 mg PO QHS CHOLESTEROL #90 tabs 05/15/22 ezetimibe 10 mg tablet 10 mg PO DAILY CHOLESTEROL #90 tabs 05/15/22 cefazolin 2 gram intravenous solution 2 g IV .see below 33 days 10/23/23 acetaminophen 325 mg tablet 650 mg (2 x 325 mg) PO Q6H PRN PRN Pain 1-10 Or Fever >100.7 #0 tabs 10/25/23 apixaban 5 mg tablet (Eliquis) 10 mg (2 x 5 mg) PO BID #0 tabs 10/25/23 melatonin 3 mg tablet 3 mg PO QHS PRN PRN Insomnia #0 tabs 10/25/23 metoprolol tartrate 25 mg tablet 25 mg PO BID #0 tabs 10/25/23 pantoprazole 40 mg tablet,delayed release 40 mg PO BID #0 tabs 10/25/23 polyethylene glycol 3350 17 gram/dose oral powder (Miralax) 17 g PO BID #119 grams 10/25/23 sennosides 8.6 mg-docusate sodium 50 mg tablet (Stimulant Laxative Plus) 2 tab PO BID #0 tabs 10/25/23 Hospital Course Operations None Procedures Blood transfusion and Dialysis Summary of Care Provided Minutes Spent on Discharge: 33 Hospital Course: Per HPI: NICKO ROSALES, is a 68 M who presented to [facility] ED on 11/14/2023 from SNF for reported episodes of hemoptysis. Patient was recently hospitalized here from 10/11-10/24 and again from 10/28-11/04. On first admission had sepsis secondary to bacteremia from Streptococcus possibly due to left knee septic arthritis. That hospitalization was complicated by severe LEELA with ATN requiring temporary HD catheter placement and initiation of dialysis. He apparently had a thrombus of the right IJ temporary catheter and this was removed with placement of left IJ catheter and initiation of Eliquis. Was eventually discharged to SNF ([facility]) on 10/24. He re-presented here on 10/28 with worsening shortness of breath. Was found to have bilateral pleural effusions suspected secondary to his new renal failure. Had thoracentesis done on right side with 1.4 L of fluid removed with significant improvement in shortness of breath. Had increased clearance of fluid with dialysis as well. He had worsening anemia during that hospitalization and studies were consistent with iron deficiency anemia. GI evaluated and EGD on 11/01 showed oozing gastric ulcer that was treated with heater probe. He was started on a PPI twice daily and Eliquis was restarted on discharge back to the [facility] on 11/05. Patient presented from the [facility] this morning after apparently having an episode of coughing up bright red blood shortly after waking up this morning. On arrival to the ED, was noted to have dried blood in the bilateral nares. Hemoglobin was 6.8, slightly down from 7.6 on 11/11. Chest x-ray showed stable large left and small right pleural effusions. CTA chest abdomen pelvis showed no PE, no other concerning findings. Was suspected that patient had a nosebleed possibly due to dryness from chronic nasal cannula use. ED ordered 1 unit of blood to be transfused for patient and it was noted the patient would also need dialysis today; for these reasons, hospitalist was contacted for admission. I saw the patient at bedside on the floor shortly after arriving over the ED, was present. Patient was somewhat fatigued appearing but otherwise sitting up comfortably in bed, in no acute distress. He had not had any further episodes of nosebleed or coughing up blood since arrival to the ED. The unit of blood was running in his IV when I saw him. He denied any acute pain or discomfort. Denied any acute concerns at this time. Hospital Course: 1. Suspected mild nosebleed with acute on chronic anemia ? Admit under observation status to PCU. Hemoglobin 6.8 on admit, slightly down from 7.6 on 11/11. S/p 1 unit of packed red blood cells transfused on 11/13. Follow-up a.m. CBC on 11/14. Holding home Eliquis, will likely be okay to restart on discharge. Suspected that reported hemoptysis was secondary to mild nosebleed exacerbated by Eliquis given normal chest x-ray and normal CTA chest abdomen pelvis on admit with no recurrence of bleeding since admission. 11/15/2023: Hemoglobin this morning is 8.0, recheck is down to 7.5 given his multiple recent readmissions and the need for transfusion on this admission, will recheck hemoglobin tomorrow morning. Will also obtain a Hemoccult pending a BM, in light of the history of a oozing gastric ulcer that was seen on 11/02/2023 and will continue with his stool softeners 11/16/2023: Hemoglobin rechecked this morning is 7.8. He is currently receiving dialysis but I discussed with him the possibility of discharge back to the senior care and he expressed understanding the risk benefits of going back and would like to go back today. Will hold his Eliquis and his aspirin for a few days and will discuss with nephrology about providing a dose of Epogen during this episode of dialysis. Do recommend close outpatient monitoring of his hemoglobin, I did order a fecal occult however he has not had a bowel movement while here despite being on MiraLAX and he does not feel like he is ready to have a bowel movement either. Will continue with his PPI in the setting of his recent GI bleed. 2. Recent severe LEELA with ATN leading to ESRD on HD with chronic bilateral pleural effusions ? Nephrology consulted. Chest imaging on admit showed stable bilateral effusions. Patient stable on room air at rest. Continue HD per nephrology recommendations. 3. Chronic debility ? PT/OT/case management consulted. Planning for discharge back to the [facility] likely on 11/14. 4. Recent history of right IJ thrombus on Eliquis; recent history of worsening anemia due to peptic ulcer disease ? Holding home Eliquis as above. Had EGD on 11/01 that showed oozing gastric ulcer that was cauterized. Continue home PPI twice daily. Chronic medical conditions: ? History of CAD s/p CABG and stenting, history of aortic valve replacement: Continue home aspirin, statin, Zetia, Lopressor. ? Constipation: Continue home senna and MiraLAX. ? Recent history of sepsis secondary to Streptococcus bacteremia: Completed course of antibiotics during prior hospitalization. ? History of esophageal carcinoma s/p surgical resection Physical Exam Narrative General: Alert, Oriented x3, Cooperative, No apparent distress HEENT: Atraumatic, PERRLA, EOMI, Normocephalic Oral: Moist Mucosa Neck: Supple, No JVD Lungs: Diminished, Normal air movement, No rhonchi, No wheeze, No rales Cardiovascular: Regular rate, Regular Rhythm, Normal S1, Normal S2, No murmurs, tunneled dialysis catheter on the left chest Abdomen: Soft, Non Tender, Non-Distended, No Hepato-splenomegaly Extremities: Trace edema, Capillary Refill Less than 3 Seconds Skin: No rashes, No breakdown Musculoskeletal: No Tenderness to Palpation of Joints or Extremities Neurological: No focal neurological deficits, Motor Exam 5/5 strength throughout, Sensory exam intact to light touch and pain Psych/Mental Status: Normal Affect, Appropriate Weight / BMI Weight Weight: 187 lb 9.814 oz Body Mass Index (BMI) 26.9 ABG / Lab / Microbiology Data 11/16/23 05:33 11/16/23 05:33 Laboratory: Laboratory Results - last 24 hr 11/15/23 11:53: Hgb 7.5 L, Hct 24.2 L 11/16/23 05:33: WBC 6.3, RBC 2.84 L, Hgb 7.8 L, Hct 25.7 L, MCV 90.5, MCH 27.5, MCHC 30.4 L, RDW Std Deviation 53.6 H, RDW Coeff of Marcos 16.4 H, Plt Count 166, MPV 10.2, Immature Gran % (Auto) 2.100 H, Neut % (Auto) 76.7 H, Lymph % (Auto) 8.9 L, Hunt % (Auto) 11.1 H, Eos % (Auto) 0.6, Baso % (Auto) 0.6, Absolute Neuts (auto) 4.9, Absolute Lymphs (auto) 0.56 L, Nucleated RBC % 0, Sodium 133 L, Potassium 4.4, Chloride 99, Carbon Dioxide 27.0, Anion Gap 7, BUN 56 H, Creatinine 6.69 H, Estim Creat Clear Calc 10.76, Est GFR (MDRD) Af Amer 11 L, Est GFR (MDRD) Non-Af 9 L, BUN/Creatinine Ratio 8.4 L, Glucose 104, Calcium 7.6 L Meaningful Use Info Meaningful Use Meaningful Use Diagnoses (Choose all that apply): None applicable Ischemic Stroke Statin Dosing Therapy Reference: STATIN DOSE THERAPY REFERENCE: * Patients > 75 years receive moderate or high dose statin therapy. * Patients 75 years or YOUNGER should receive HIGH intensity statin dose unless contraindicated. You will be required to document reason for non-treatment if statin daily dose does not meet guidelines. HIGH DOSE STATIN THERAPY DAILY Atorvastatin > than or = to 40 mg Rosuvastatin > than or = to 20 mg Amlodipine + Atorvastatin > than or = to 2.5/40 mg Ezetimibe + Simvastatin 10/80 mg Simvastatin 80mg Discharge Plan Admission Admit Date/Time: 11/15/23 14:30 Attending Provider: Kody Avila Primary Care Provider: Yaw Singh Consulting Providers: Usama Valladares Discharge Orders/Prescriptions Prescriptions: Continued atorvastatin 80 mg tablet 80 mg PO QHS Qty: 90 3RF ezetimibe 10 mg tablet 10 mg PO DAILY Qty: 90 3RF cefazolin 2 gram recon soln 2 g IV .see below 33 Days Rx Instructions: stop date 11/25/23. Dx: strep bacteremia. cefazolin iv with dialysis: 2gm on Mon, 2gm on Wed, 3gm on Sun. Weekly bmp and cbc. Fax to [phone]. acetaminophen 325 mg Tablet 650 mg PO Q6H PRN PRN (Reason: Pain 1-10 Or Fever >100.7) Qty: 0 0RF melatonin 3 mg Tablet 3 mg PO QHS PRN PRN (Reason: Insomnia) Qty: 0 0RF metoprolol tartrate 25 mg Tablet 25 mg PO BID Qty: 0 0RF sennosides-docusate sodium [Stimulant Laxative Plus] 8.6-50 mg Tablet 2 tab PO BID Qty: 0 0RF pantoprazole 40 mg Tablet,Delayed Release (Dr/Ec) 40 mg PO BID Qty: 0 0RF polyethylene glycol 3350 [Miralax] 17 gram/dose powder 17 g PO BID Qty: 119 0RF Held aspirin 81 MG tablet,chewable 81 mg PO DAILY@0800 Hold Instructions: Resume on 11/20/23. Patient Comments: HEART/BLOOD THINNER Eliquis 5 mg Tablet 10 mg PO BID Qty: 0 0RF Hold Instructions: Resume on 11/19/23. Rx Instructions: two twice a day for 13 doses, then one twice a day thereafter-take for 12 weeks Referrals / Follow Up: Yaw Singh MD [Primary Care Provider] - Disposition Disposition (needs filled in before D/C Order can be placed): [facility] Facility Charges/Coding Visit Charges Inpatient E&M: 09781 Disch Hosp >30min
[2023-11-16] MEDS: Heparin 10,000 UNITS/10 ML Vial 2500 UNITS IV (12:00)
[2023-11-16] MEDS: Pantoprazole Sodium 40 MG Tablet PO (12:11)
[2023-11-16] MEDS: Aspirin 81 MG TAB.CHEW PO (12:11)
[2023-11-16] MEDS: Metoprolol Tartrate 25 MG Tablet PO (12:11)
[2023-11-16] MEDS: Ezetimibe 10 MG Tablet PO (12:12)
[2023-11-16] MEDS: 0.9% Saline Lock 10 ML Syringe IV (12:14)
== END 2023-11-16 13:14 | disposition skilled nursing facility (03) | DRG 813 ==
LOC: ED 05:13 → PCU 07:49
PROVIDERS: Admitting Provider Hospitalist; Emergency Provider Emergency Medicine; PCP Family Medicine; Visit Provider Family Medicine
DX: D68.32 Hemorrhagic disorder due to extrinsic circulating anticoagulants (principal); N18.6 End stage renal disease; I82.C11 Acute embolism and thrombosis of right internal jugular vein; J90 Pleural effusion, not elsewhere classified; I12.0 Hypertensive chronic kidney disease with stage 5 chronic kidney disease or end stage renal disease; N17.9 Acute kidney failure, unspecified; T82.868A Thrombosis due to vascular prosthetic devices, implants and grafts, initial encounter; R04.2 Hemoptysis; Z95.2 Presence of prosthetic heart valve; Z99.2 Dependence on renal dialysis; I25.10 Atherosclerotic heart disease of native coronary artery without angina pectoris; Z91.158 Patient's noncompliance with renal dialysis for other reason; E78.5 Hyperlipidemia, unspecified; K59.00 Constipation, unspecified; Z79.01 Long term (current) use of anticoagulants; Z79.82 Long term (current) use of aspirin; Z95.5 Presence of coronary angioplasty implant and graft; R53.81 Other malaise; Z86.718 Personal history of other venous thrombosis and embolism; Z95.1 Presence of aortocoronary bypass graft; Z85.01 Personal history of malignant neoplasm of esophagus; Z92.21 Personal history of antineoplastic chemotherapy
CPT/HCPCS: 36415; 71045; 71275; 74174; 80048; 80053; 83605; 84100; 85014; 85018; 85025; 85027; 85610; 85730; 86850; 86900; 86901; 86920; 90937; 94668; 97162; 97166; 97802; 99285; J7030; P9016; Q9967; A4216; G0257; J2405

== ENCOUNTER 2023-12-25 10:38 | Day surgery (SDC) | payer MEDICARE, OTHER, SELFPAY ==
[2023-12-25] VITALS (8 sets, daily range): BP systolic 102–140; BP diastolic 67–82; PULSE 86–96; RESP 16–18; TEMP 36.7–37.1; O2SAT 94–96; BMI 24.0
[2023-12-25] MEDS: 0.9% Normal Saline (500mL Bag) 500 ML 15 ML IV (11:22)
--- NOTE | 2023-12-25 11:54 | PRE.ANES_ITS ---
ASA Classification* ASA Classification ASA Classification: 3 Assessment & Plan Anesthesia* Anesthesia Assessment Anesthesia Assessment: Discussed sedation and/or anesthesia options, risks, benefits, and alternatives with patient/parents/legal guardian/POA. Questions invited. The patient/parents/legal guardian/POA seems to understand and agrees to proceed with anesthesia plan. Reviewed the physical assessment, medical history, allergy history and patient home medications list prior to surgery/procedure/anesthetic and documented any changes. Performed airway and anesthesia risk assessments. Anesthesia Type Anesthesia Type: MAC History Source History Obtained from:: Patient and Chart Anesthesia Focused Assessment* Temperature: 98.8 F Pulse Rate: 95 Blood Pressure: 140/82 Respiratory Rate: 18 Pulse Ox: 96 Oxygen Delivery Method: Room Air Airway Assessment Mouth opens: >3 cm Mallampati Score: III Teeth Condition: Chipped/Broken (Bottom left molar is broken.) Neck Range of motion (ROM): Limited ROM Comment: Decreased extension Focused Labs Anesthesia Preop lab: CBC WBC 6.3 K/mm3 (4.4-11.0) 11/16/23 05:33 RBC 2.84 M/mm3 (4.6-6.2) L 11/16/23 05:33 Hgb 7.8 g/dL (13.0-16.5) L 11/16/23 05:33 Hct 25.7 % (40-54) L 11/16/23 05:33 Plt Count 166 K/mm3 (150-450) 11/16/23 05:33 CHEMISTRY Potassium 4.4 mmol/L (3.5-5.1) 11/16/23 05:33 Sodium 133 mmol/L (136-145) L 11/16/23 05:33 Magnesium 2.5 mg/dL (1.6-2.6) 10/16/23 09:24 Phosphorus 4.2 mg/dL (2.5-4.9) 11/14/23 05:50 BUN 56 mg/dL (7-18) H 11/16/23 05:33 Creatinine 6.69 mg/dL (0.70-1.30) H 11/16/23 05:33 Glucose 104 mg/dL (74-106) 11/16/23 05:33 COAG PT 32.4 SECONDS (11.7-14.9) H 11/14/23 05:50 Pre-Assessment Diagnosis/Proposed Procedure Planned Operative Procedure(s): EGD Anesthesia History 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 When Was Last Pacemaker Check QUESTION #4 FULL TEXT: You/Your Family Experience fever (hyperthermia) with Anesthesia Last Oral Intake Last Oral intake: Last Oral Intake NPO since 00:00 12/25/23 11:24 Meds taken in AM with sips of Yes 12/25/23 11:24 water? Meds patient instructed to take am of surgery PONV PONV - hydraulic auto jack mechanic: PONV - hydraulic auto jack mechanic Female No 12/04/23 11:07 HX of Motion Sickness No 12/04/23 11:07 HX of N/V After Surgery No 12/04/23 11:07 Non-Smoker Yes 12/04/23 11:07 Duration of Surgery greater No 12/04/23 11:07 than 60 minutes Number of Risk Factors 1 12/04/23 11:07 PONV Score Low Risk 12/04/23 11:07 Height & Weight Height & Weight: Anesthesia: Height & Weight Height 5 ft 10 in 12/25/23 11:24 Weight: 76.022 kg 12/25/23 11:24 Body Mass Index (BMI) 24.0 12/25/23 11:24 Respiratory Assessment Respiratory Assessment - hydraulic auto jack mechanic: Respiratory Tract Infection Hx - hydraulic auto jack mechanic Hx Respiratory Tract Infection No 12/04/23 11:07 STOP Sleep Apnea STOP Sleep Apnea - hydraulic auto jack mechanic: STOP Sleep Apnea - hydraulic auto jack mechanic Hx Hypertension Yes: CONTROLLED ON MED 12/04/23 11:07 Hx Sleep Apnea No 12/04/23 11:07 CPAP No 12/04/23 11:07 BIPAP No 12/04/23 11:07 Do you snore loudly (louder No 12/04/23 11:07 than talking or can be heard Do you often feel tired/ No 12/04/23 11:07 fatigued/ sleepy during daytime? Has anyone observed you stop No 12/04/23 11:07 breathing during sleep? STOP Results Negative 12/04/23 11:07 QUESTION #5 FULL TEXT : Do you snore loudly (louder than talking or can be heard through closed doors)? 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 Specify any problems Hx of Preganancy in last 3 N/A 12/04/23 11:07 Months Nurse Filling Out Transfusion VCHRISTIN 12/04/23 11:07 & Questions: Date: 12/04/23 12/04/23 11:07 Time: 11:08 12/04/23 11:07 Patient unable to answer at this time (ie. confused, unrespo /Reproduction History /Reproductive History - hydraulic auto jack mechanic: /Reproductive Hx- hydraulic auto jack mechanic Hx Now No 12/04/23 11:07 Gestational Age (in weeks): EDC: Hx Hx Para Hx Section SAB No 12/04/23 11:07 Active Medications Active Medications: Current Medications Generic Name Dose Route Start Last Admin Trade Name Freq PRN Reason Stop Dose Admin Sodium Chloride 500 mls @ 0 mls/hr 12/25/23 11:00 12/25/23 11:22 IV 15 mls/hr .Q0M JIGNA Administration KVO PFSH Medical History (Updated 12/04/23 @ 11:07 by Tresa Mesa) Wears glasses Cancer Cancer Pressure ulcer History of renal dialysis History of renal disease Injury of back History of GI bleed Gastric reflux Shortness of breath on exertion History of stress test History of echocardiogram Cardiology follow-up encounter Thrombus of venous dialysis catheter ESRD (end stage renal disease) on dialysis Acute respiratory insufficiency Medical non-compliance Acute exacerbation of chronic heart failure Chronic kidney disease (CKD) Pleural effusion Dyspnea Acute kidney injury Adenocarcinoma of esophagus LEELA (acute kidney injury) Non-smoker Esophageal carcinoma Atherosclerosis of coronary artery of [place]oot heart without angina pectoris 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 Essential (primary) hypertension Non-rheumatic aortic stenosis Syncope and collapse Hyperlipidemia Atherosclerotic heart disease of [place] coronary artery with other forms of angina pectoris Encounter for long-term current use of high risk medication abnormal stress test Angina pectoris Exertional chest pain URI (upper respiratory infection) Home Medications ?Medication ?Instructions ?Recorded ?Last Taken ?Type atorvastatin 80 mg tablet 80 mg PO QHS CHOLESTEROL #90 tabs 05/15/22 12/24/23 Rx ezetimibe 10 mg tablet 10 mg PO DAILY CHOLESTEROL #90 tabs 05/15/22 12/24/23 Rx acetaminophen 325 mg tablet 650 mg (2 x 325 mg) PO Q6H PRN PRN 10/25/23 Unknown Rx Pain 1-10 Or Fever >100.7 #0 tabs melatonin 3 mg tablet 3 mg PO QHS PRN PRN Insomnia #0 10/25/23 12/24/23 Rx tabs metoprolol tartrate 25 mg tablet 25 mg PO BID #0 tabs 10/25/23 12/24/23 Rx pantoprazole 40 mg tablet,delayed 40 mg PO BID #0 tabs 10/25/23 12/24/23 Rx release sennosides 8.6 mg-docusate sodium 2 tab PO BID #0 tabs 10/25/23 12/24/23 Rx 50 mg tablet (Stimulant Laxative Plus) ferrous sulfate 325 mg (65 mg 325 mg PO DAILY #90 tabs 11/20/23 12/24/23 Rx iron) tablet apixaban 5 mg tablet (Eliquis) 5 mg PO BID 12/04/23 12/24/23 History polyethylene glycol 3350 17 17 g PO DAILY PRN constipation 12/04/23 Unknown History gram/dose oral powder (Miralax) potassium chloride 20 mEq 10 meq PO DAILY 08/27/24 09/16/24 History tablet,extended release ondansetron 4 mg disintegrating 4 mg PO Q8H PRN PRN nausea and 12/25/23 12/25/23 08:00 History tablet vomiting Allergy/AdvReac Type Severity Reaction Status Date / Time mercury (elemental) Allergy Severe Swelling Verified 12/25/23 11:02 Family History Father Heart disease Myocardial infarction Hypertension Brother Hypertension Sister Heart disease Myocardial infarction Surgical History (Updated 12/04/23 @ 11:07 by Tresa Mesa) History of cardiac catheterization History of esophagogastroduodenoscopy (EGD) Hx of surgical procedure History of aortic valve replacement (03/03/19) History of coronary artery stent placement (12/31/18) H/O coronary artery bypass surgery (09/18/02) History of tonsillectomy History of hernia repair Social History Smoking Status: Never smoker alcohol intake: never substance use type: does not use caffeine: No what type of physical activity do you participate in: walking frequency: daily Review of Systems (Anesthesia) ROS Narrative System reviewed and no additional complaints, except as documented.
--- NOTE | 2023-12-25 12:00 | EGD_PTH ---
PATIENT: NICKO ROSALES LOC: EN U#:[id number] AGE/SX: 68/M ROOM: RE12/25/[address]: Dr. Bud Beck DO : 1955 BED: DIS: 12/25/2023 SPEC #: [id number] RECD: 12/25/23 17:57 STATUS: RICKY GRIFFITH #: [id number] KIM: 12/25/23 12:[address]: Bud Beck DEPT: SURGICAL PATHOLOGY RECD BY: Cecily Forrester ENTERED: 12/26/23 14:03 SP TYPE: EGD BIOPSY LADY DR: Dr. Yaw Singh MD Tissues: Esophagus, NOS Procedures: Special Stain Group I Surgery Specimen Level IV Alcian Blue/PAS (control) HEADER OPERATION: EGD with biopsies and esophageal dilation PRE-OP DIAGNOSIS: Anemia TISSUE SUBMITTED: Distal esophagus biopsy MICROSCOPIC DIAGNOSIS Distal esophagus, biopsy: Fragments of gastroesophageal mucosa with chronic inflammation. Intestinal metaplasia (goblet cell metaplasia) not identified. See comment. 12/27/2023 COMMENT Alcian blue/PAS stain with matched control is used in the evaluation of the specimen. MICROSCOPIC DESCRIPTION Slides are reviewed. GROSS DESCRIPTION Received in fixative is one container labeled with the patient's name and designated Distal esophagus biopsy. The specimen consists of multiple irregular fragments of light fitzgerald soft tissue that in aggregate measure 0.6 x 0.6 x 0.1 cm. The specimen is totally submitted in one cassette. 12/26/2023 TC:3 CPT:56781,66409
--- NOTE | 2023-12-25 12:16 | PCM.HP.BLA ---
History and Physical Date of Admission: 12/25/23 NICKO ROSALES, is a 68 M who presents to the office today for f/u. He was hospitalized at the end of October 2023 with bilateral pleural effusions and septic shock from a UTI. During his stay, he had a decline in his hemoglobin and GI was consulted. Dr. Beck performed an EGD and found oozing gastric ulcers. PMHx of ESRD, anemia, CAD, aortic stenosis, HLD and gastric cancer EGD 11.02.23: - Normal esophagus. - Small hiatal hernia. - Oozing gastric ulcer with pigmented material. Treated with a heater probe. - Non-bleeding gastric ulcers with no stigmata of bleeding. - No gross lesions in the duodenal bulb. - No specimens collected. OV 11.20.23 Patient has been doing well since discharge. He continues to take pantoprazole 40 mg BID. He has occasional heartburn and nausea. He is often nauseous in the morning but once he eats he feels better. He has not been taking iron as no one has mentioned he should be taking it. His blood thinners are still on hold per chart. He is not sure if he taking blood thinners or not. He denies melena, hematochezia, vomiting, constipation or diarrhea. ROS Const Constitutional: Positive for fatigue and weight change (weight loss); No fever(s) ENT ENT: No difficulty swallowing Gastro GI: Positive for heartburn and nausea/dyspepsia; No abdominal pain, belching, bloating, change in bowel habits, change in stool character, coffee ground emesis, constipation, cramping, diarrhea, difficulty swallowing, feeling full early, excessive flatus, incontinent of stools, Vomiting blood/hematemesis, Blood in stool, loose stools, Black,tarry stools, pain with swallowing, vomiting or other Musc Musculoskeletal: Positive for joint swelling, muscle weakness and restless legs; No joint pain Skin Skin: No yellowing of the eye or itchy eyes Neuro Neurology: Positive for restless legs Psych Psychiatric: No anxiety and No depression Endo Endocrine: Positive for fatigue and weight change (weight loss) Aller/Imm Allergy/Immunologic: No itchy eyes Otto/Lymp Hematologic/Lymphatic: Positive for easy bleeding and easy bruising Exam Const General: cooperative and comfortable Nutritional Appearance: average body habitus and well nourished HENMT Head: normal to inspection Ears: hearing grossly normal bilaterally Nose: external nose normal Face and sinus: normal facial exam Eyes General: appearance normal, both eyes and all related structures Neck Neck: normal visual inspection Chest Chest palpation & inspection: normal inspection of the chest Resp Effort & Inspection: normal respiratory effort Cardio Palpation: normal PMI GI Inspection: normal to inspection Palpation: no hepatosplenomegaly Skin General: no rashes or lesions noted Neuro General: patient alert Extrem General: normal to inspection Psych Affect: normal affect Assessment and Plan Assessment and Plan (1) Acute on chronic anemia: Status: Chronic Plan: Patient is here today for hospital f/u after GI bleed. He is having no GI symptoms at this time. -We will scheduled him for EGD to make sure ulcers have healed -He will continue to take pantoprazole 40 mg BID -Ordered ferrous sulfate 325 mg daily for iron deficiency anemia -Ordered CBC and iron level (2) GI bleed: Status: Acute Orders: Orders CBC W/Diff, Automated Today D64.9 - Anemia, unspecified Iron Today D64.9 - Anemia, unspecified Medications: New ferrous sulfate 325 mg PO DAILY 90 tabs 3RF I have examined the patient and the H&P has been reviewed. There are no clinical changes since date of exam.
--- NOTE | 2023-12-25 12:46 | OP.CCLET_ITS ---
12/25/2023 Yaw Singh MD Re : Upper GI endoscopy procedure for Jacob Landa Dear Dr. Singh This procedure was performed on Monday, December 25, 2023. 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 Biopsied. Dilated. - Chronic gastritis. - Normal second portion of the duodenum. Recommendations : - Discharge patient to home. - Resume previous diet. - Continue present medications. - Await pathology results. My findings are described in the full procedure note, which is enclosed. If I can be of further assistance, please feel free to contact me at . Sincerely, Bud Beck, 12/25/2023 12:45:57 PM This report has been signed electronically.
--- NOTE | 2023-12-25 12:46 | OP.EGD_ITS ---
Patient Name: Jacob Landa Procedure Date: 12/25/2023 12:24 PM Date of : 1955 Age: 68 Procedure: Upper GI endoscopy Indications: Iron deficiency anemia, Dysphagia Providers: Bud Beck DO Medicines: Monitored Anesthesia Care Patient Profile: This is a 68 year old male. Refer to note in patient chart for documentation of history and physical. Patient has symptoms of chronic dysphagia. Complications: No immediate complications. Procedure: Pre-Anesthesia Assessment: - Prior to the procedure, a History and Physical was performed, and patient medications and allergies were reviewed. The patient is competent. The risks and benefits of the procedure and the sedation options and risks were discussed with the patient. All questions were answered and informed consent was obtained. Patient identification and proposed procedure were verified by the physician in the pre-procedure area. Mental Status Examination: alert and oriented. Airway Examination: normal oropharyngeal airway and neck mobility. Respiratory Examination: clear to auscultation. CV Examination: normal. Prophylactic Antibiotics: The patient does not require prophylactic antibiotics. Prior Anticoagulants: The patient has taken no anticoagulant or antiplatelet agents. ASA Grade Assessment: II - A patient with mild systemic disease. After reviewing the risks and benefits, the patient was deemed in satisfactory condition to undergo the procedure. The anesthesia plan was to use monitored anesthesia care (MAC). Immediately prior to administration of medications, the patient was re-assessed for adequacy to receive sedatives. The heart rate, respiratory rate, oxygen saturations, blood pressure, adequacy of pulmonary ventilation, and response to care were monitored throughout the procedure. The physical status of the patient was re-assessed after the procedure. After obtaining informed consent, the endoscope was passed under direct vision. Throughout the procedure, the patient's blood pressure, pulse, and oxygen saturations were monitored continuously. The Endoscope was introduced through the mouth, and advanced to the second part of duodenum. The upper GI endoscopy was accomplished without difficulty. The patient tolerated the procedure well. Scope In: 12:34:18 PM Scope Out: 12:40:22 PM Total Procedure Duration Time 0 hours 6 minutes 4 seconds Findings: An esophago-gastric anastomosis was found in the upper third of the esophagus. This was characterized by moderate stenosis. Biopsies were taken with a cold forceps for histology. Verification of patient identification for the specimen was done. Estimated blood loss was minimal. A guidewire was placed and the scope was withdrawn. Dilation was performed with a Savary dilator with no resistance at 60 Fr. The dilation site was examined and showed moderate mucosal disruption. Estimated blood loss was minimal. Diffuse mild inflammation characterized by erythema and friability was found in the entire examined stomach. The second portion of the duodenum was normal. 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 Biopsied. Dilated. - Chronic gastritis. - Normal second portion of the duodenum. Recommendation: - Discharge patient to home. - Resume previous diet. - Continue present medications. - Await pathology results. Procedure Code(s): --- Professional --- 16018, Esophagogastroduodenoscopy, flexible, transoral; with insertion of guide wire followed by passage of dilator(s) through esophagus over guide wire 97184, 59,51, Esophagogastroduodenoscopy, flexible, transoral; with biopsy, single or multiple CPT copyright 2021 [employer]. All rights reserved. The codes documented in this report are preliminary and upon engagement director review may be revised to meet current compliance requirements. Bud Beck DO 12/25/2023 12:45:57 PM This report has been signed electronically. Number of Addenda: 0 Note Initiated On: 12/25/2023 12:24 PM
--- NOTE | 2023-12-25 12:51 | PCM.POST.ANE ---
Anesthesia: Postop Eval I Current Vital Signs Temperature: 98.5 F Pulse Rate: 87 Blood Pressure: 102/69 Respiratory Rate: 16 Pulse Ox: 96 Oxygen Delivery Method: Room Air Assessment Airway patent: Yes Spontaneous unlabored respirations: Yes Mental status: Asleep nausea: No Vomiting: No Anesthesia Complication: No Fluid Hydration Crystalloid volume administer (ml): 200 Total IV fluid infused: 200 Progress Note Anesthesia document: Postop Eval 1 completed: Yes
--- NOTE | 2023-12-25 17:33 | PCM.POSTANE2 ---
Anesthesia Postop Eval I Sum Postop Eval Completion status Anesthesia document: Postop Eval 1 completed: Yes Anesthesia Postop Eval I Summary Anesthesia Postop Eval I Summary: Anesthesia Postop Eval I: Assessment Summary Airway patent Yes 12/25/23 12:52 [email or web address] Spontaneous unlabored Yes 12/25/23 12:52 [email or web address] respirations Mental status Asleep 12/25/23 12:52 [email or web address] nausea No 12/25/23 12:52 [email or web address] Vomiting No 12/25/23 12:52 [email or web address] Anesthesia Postop Eval I: Fluid Summary Crystalloid volume administer 200 12/25/23 12:52 [email or web address] (ml) Colloids volume administered ( ml) Blood Product volume administered (ml) Total IV fluid infused 200 12/25/23 12:52 [email or web address] Anesthesia Postop Eval I: Summary Notes Anesthesia Complication No 12/25/23 12:52 [email or web address] Anesthesia Complication Comment: Post-operative progress note Anesthesia: Postop Eval II Evaluation Mental status: Awake and Calm Pain Level: 0 nausea: No Vomiting: No Complications Anesthesia Complication: No
== END 2023-12-25 14:10 | disposition home or self-care (01) ==
LOC: EN 10:40 → AC 10:42
PROVIDERS: PCP Family Medicine; Referring Provider Family Medicine; Visit Provider Internal Medicine Gastroenterology
PROC: 0DJ08ZZ Inspection of Upper Intestinal Tract, Via Natural or Artificial Opening Endoscopic (ICD-10-PCS; CPT 43235; principal; 2023-12-25 11:55)
DX: K22.2 Esophageal obstruction (principal); N18.6 End stage renal disease; I12.0 Hypertensive chronic kidney disease with stage 5 chronic kidney disease or end stage renal disease; D63.1 Anemia in chronic kidney disease; K29.50 Unspecified chronic gastritis without bleeding; I25.10 Atherosclerotic heart disease of native coronary artery without angina pectoris; I25.810 Atherosclerosis of coronary artery bypass graft(s) without angina pectoris; I35.0 Nonrheumatic aortic (valve) stenosis; E78.5 Hyperlipidemia, unspecified; Z95.1 Presence of aortocoronary bypass graft; Z95.2 Presence of prosthetic heart valve; Z95.5 Presence of coronary angioplasty implant and graft; Z99.2 Dependence on renal dialysis; Z79.01 Long term (current) use of anticoagulants; Z79.899 Other long term (current) drug therapy; Z85.01 Personal history of malignant neoplasm of esophagus
CPT/HCPCS: 43239; 43248; 88305; 88312; J7040; C1769; J2405

== ENCOUNTER 2024-02-14 18:08 | Inpatient (IN) | payer MEDICARE, OTHER, SELFPAY ==
[2024-02-14 18:09] VITALS: BP 117/77; PULSE 96; RESP 15; TEMP 36.6; O2SAT 98
[2024-02-14 18:11] VITALS: BMI 29.7
--- NOTE | 2024-02-14 20:46 | EDS_ITS ---
<Statement entered by Heladio Burnham DO - 02/15/24 00:05> Patient was seen and examined with physician bar assistant Gloria All components of the history and physical confirmed and agreed. History of present illness and physical exam: Patient is a 68-year-old male with past medical history of end-stage renal disease on dialysis Sunday, CHF, esophageal carcinoma, hyperlipidemia who presented to the [facility] part with a chief complaint of left hip pain starting about 2 days ago. He denies any known injuries he states that the day before his pain started he was lifting his walker out of the back of his truck but does not recall much pain at this point time he states that he did feel a small amount of pain. He states that his a left inner thigh seems to be getting worse as he has been attempting to walk. He states that today when attempting to walk with his walker he had worsening pain to the point where he was unable to walk which prompted him here for further evaluation management. Patient presents with Review of systems: Agree with above Physical exam: Agree with above MDM Patient is a 68-year-old male who presented to the [facility] part with chief complaint of left hip pain. Patient will have workup performed here on the differential diagnose includes but limited to fracture, musculoskeletal strain. Once workup is obtained reviewed he will be reevaluated. Patient's x-ray of his left hip was reviewed and showed a mildly impacted left femoral subcapital fracture with joint space being maintained. Pelvic ring is intact. I called and discussed the case with Dr. Marc who is aware of the patient and patient will be admitted to the hospital service will discuss with hospitalist. Discussed case with hospitalist Dr. Pino who will accept patient for admission. I did add on clearance labs as well as a EKG. Patient's CBC was reviewed and was largely unremarkable no evidence of leukocytosis white blood count normal at 5.6, hemoglobin stable 12.5, platelet count was noted be 127. Patient's INR normal at 1.2, PT of 15.5. Patient's chemistry is pending at this point time. Patient's EKG was reviewed and independently interpreted by myself which showed sinus rhythm with a rate of 74 bpm. I did discuss this with the patient and family bedside they are agreeable with this plan all question concerns answered. Final impression: Left hip fracture Disposition: Patient will be admitted to the hospital Supervising attending attestation: Heladio SINGH History of Present Illness Chief Complaint: Lower Extremity Injury Narrative Narrative: 68-year-old male states he woke up 2 days ago with left hip pain. He has no known injury. He states the day before it started he lifted a heavy rollator out of his truck but he does not recall pain at that time. The pain in his left inner thigh seems to be getting worse. He has no pain radiating down the leg, no weakness or numbness or tingling. There is no involvement of his genital or perineal area. He has no history of DVT/PE. [facility] Medical History (Updated 12/04/23 @ 11:07 by Tresa Mesa) Wears glasses Cancer Cancer Pressure ulcer History of renal dialysis History of renal disease Injury of back History of GI bleed Gastric reflux Shortness of breath on exertion History of stress test History of echocardiogram Cardiology follow-up encounter Thrombus of venous dialysis catheter ESRD (end stage renal disease) on dialysis Acute respiratory insufficiency Medical non-compliance Acute exacerbation of chronic heart failure Chronic kidney disease (CKD) Pleural effusion Dyspnea Acute kidney injury Adenocarcinoma of esophagus LEELA (acute kidney injury) Non-smoker Esophageal carcinoma Atherosclerosis of coronary artery of [place] heart without angina pectoris 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 Essential (primary) hypertension Non-rheumatic aortic stenosis Syncope and collapse Hyperlipidemia Atherosclerotic heart disease of [place] coronary artery with other forms of angina pectoris Encounter for long-term current use of high risk medication abnormal stress test Angina pectoris Exertional chest pain URI (upper respiratory infection) Home Medications ?Medication ?Instructions ?Recorded ?Last Taken ?Type atorvastatin 80 mg tablet 80 mg PO QHS CHOLESTEROL #90 tabs 05/15/22 12/24/23 Rx ezetimibe 10 mg tablet 10 mg PO DAILY CHOLESTEROL #90 tabs 05/15/22 12/24/23 Rx acetaminophen 325 mg tablet 650 mg (2 x 325 mg) PO Q6H PRN PRN 10/25/23 Unknown Rx Pain 1-10 Or Fever >100.7 #0 tabs melatonin 3 mg tablet 3 mg PO QHS PRN PRN Insomnia #0 10/25/23 12/24/23 Rx tabs metoprolol tartrate 25 mg tablet 25 mg PO BID #0 tabs 10/25/23 12/24/23 Rx pantoprazole 40 mg tablet,delayed 40 mg PO BID #0 tabs 10/25/23 12/24/23 Rx release sennosides 8.6 mg-docusate sodium 2 tab PO BID #0 tabs 10/25/23 12/24/23 Rx 50 mg tablet (Stimulant Laxative Plus) ferrous sulfate 325 mg (65 mg 325 mg PO DAILY #90 tabs 11/20/23 12/24/23 Rx iron) tablet apixaban 5 mg tablet (Eliquis) 5 mg PO BID 12/04/23 12/24/23 History polyethylene glycol 3350 17 17 g PO DAILY PRN constipation 12/04/23 Unknown History gram/dose oral powder (Miralax) potassium chloride 20 mEq 10 meq PO DAILY 12/04/23 12/24/23 History tablet,extended release ondansetron 4 mg disintegrating 4 mg PO Q8H PRN PRN nausea and 12/25/23 12/25/23 08:00 History tablet vomiting Allergy/AdvReac Type Severity Reaction Status Date / Time No Known Allergies Allergy Verified 02/14/24 18:09 Family History Father Heart disease Myocardial infarction Hypertension Brother Hypertension Sister Heart disease Myocardial infarction Surgical History (Updated 12/04/23 @ 11:07 by Tresa Mesa) History of cardiac catheterization History of esophagogastroduodenoscopy (EGD) Hx of surgical procedure History of aortic valve replacement (03/03/19) History of coronary artery stent placement (12/31/18) H/O coronary artery bypass surgery (09/18/02) History of tonsillectomy History of hernia repair Social History Smoking Status: Never smoker alcohol intake: never substance use type: does not use caffeine: No what type of physical activity do you participate in: walking frequency: daily ROS ROS ED ROS Narrative Constitutional: Negative for fever, chills, malaise. CVS: Negative for chest pain. Respiratory: Negative for shortness of breath. GI: Negative for abdominal pain. : Negative for dysuria. Neuro: Negative for motor/sensory dysfunction. EXAM Physical Exam Narrative Exam Narrative: CONST: Patient sitting in no acute distress. EYES: Normal inspection. NECK: Normal inspection. RESP: No respiratory distress, CTAB. CVS: Regular rate and rhythm, no murmur, no gallop. Back: Normal inspection, no midline tenderness. SKIN: Color normal, no rash, warm, dry, intact. EXTREMITIES: Normal appearance, full range of motion of both lower extremities. Pain with left logroll. 5/5 strength in bilateral hip flexion dorsiflexion plantarflexion. Normal sensation, 2+ DP pulses. NEURO: Alert and answering questions appropriately. PSYCH: Normal affect. Const Vital Signs: 02/14/24 18:09 Temperature 98 F Temperature Source Temporal Pulse Rate 96 Respiratory Rate 15 Blood Pressure 117/77 Blood Pressure Mean 90 Pulse Ox 98 Oxygen Delivery Method Room Air MDM MDM MDM Narrative Medical decision making narrative: Patient has atraumatic left hip pain. He has pain with logroll but no deformity on exam. Full range of motion and neurovascular intact. Left hip x-ray is pending to rule out occult fracture. Discharge Plan Triage Chief Complaint: Lower Extremity Injury ED Midlevel Provider: Gloria Saleem ED Provider: Heladio Burnham Dx/Rx/DC Orders Prescriptions: No Action atorvastatin 80 mg tablet 80 mg PO QHS Qty: 90 3RF ezetimibe 10 mg tablet 10 mg PO DAILY Qty: 90 3RF ferrous sulfate 325 mg (65 mg iron) tablet 325 mg PO DAILY Qty: 90 3RF acetaminophen 325 mg Tablet 650 mg PO Q6H PRN PRN (Reason: Pain 1-10 Or Fever >100.7) Qty: 0 0RF melatonin 3 mg Tablet 3 mg PO QHS PRN PRN (Reason: Insomnia) Qty: 0 0RF metoprolol tartrate 25 mg Tablet 25 mg PO BID Qty: 0 0RF sennosides-docusate sodium [Stimulant Laxative Plus] 8.6-50 mg Tablet 2 tab PO BID Qty: 0 0RF pantoprazole 40 mg Tablet,Delayed Release (Dr/Ec) 40 mg PO BID Qty: 0 0RF potassium chloride 20 mEq tablet extended release 10 meq PO DAILY polyethylene glycol 3350 [Miralax] 17 gram/dose powder 17 g PO DAILY PRN (Reason: constipation) Eliquis 5 mg Tablet 5 mg PO BID Patient Comments: NH INSTRUCTED TO HOLD TIL AFTER PROCEDURE ondansetron 4 mg tablet,disintegrating 4 mg PO Q8H PRN PRN (Reason: nausea and vomiting) Primary Care Provider: Yaw Singh Referrals: Yaw Singh MD [Primary Care Provider] - Print Language: Indonesian
--- NOTE | 2024-02-14 20:50 | RAD_ITS ---
INDICATION: pain EXAMINATION/TECHNIQUE: X-RAY - XR Hip Unilateral with Pelvis when performed; 2-3 Views COMPARISON: CT of 10/11/2023 FINDINGS: PELVIC BONES: There is normal appearance of the pelvic ring, sacrum and sacroiliac joints. HIPS: Hip joint space is maintained bilaterally however abnormal appearance of the LEFT femoral neck consistent with a subcapital mildly impacted fracture. Normal appearance of the RIGHT hip. SOFT TISSUES: No soft tissue swelling or gas. Incidental note of focal areas of hyperdensity likely representing residual contrast within multiple diverticula. There are postoperative changes of repair of the anterior abdominal wall. RAD/HIP, UNI W/ Pelvis 2-3 Views IMPRESSION: 1. Mildly impacted LEFT femoral subcapital fracture. Joint space maintained. 2. No other fracture noted. 3. Pelvic ring is intact. 4. Postoperative changes of prior anterior abdominal wall repair. Residual contrast within multiple diverticula noted Electronically Signed: Rios Jack MD at 22:32 EST ,
[2024-02-14 22:08] VITALS: BP 147/94; PULSE 82; RESP 17; O2SAT 96
--- NOTE | 2024-02-14 23:14 | EKG12_ITS ---
Test Reason : Blood Pressure : */* mmHG Vent. Rate : 74 BPM Atrial Rate : 74 BPM P-R Int : 142 ms QRS Dur : 88 ms QT Int : 406 ms P-R-T Axes : 20 12 13 degrees QTcB Int : 450 ms Normal sinus rhythm Normal ECG Confirmed by RONA MANNING, PATRICK ([id number]), commercial production editor CYNTHIA JOHN ([id number]) on 02/18/2024 10:14:22 AM Referred By: Confirmed By: PATRICK REA MD
--- NOTE | 2024-02-14 23:31 | PCM.HP.STD ---
[facility] - General General Date of Admission: 02/15/24 Date of Service: 02/14/24 Chief Complaint: Left Hip Pain. HPI Narrative NICKO LANDA, is a 68 M with a past medical history of essential hypertension, hyperlipidemia, ESRD on HD; (M-W-F), CAD; s/p CABG x 3 (2002), history of nonrheumatic aortic stenosis; s/p AVR (2018), history of coronary artery stent (2018), history of syncope and collapse, history of AVF thrombus; on Eliquis, history of esophageal carcinoma (2020); s/p partial esophagectomy with pull-up procedure plus chemotherapy and radiation, history of GI bleed, chronic anemia, history of sepsis, history of pressure ulcer, history of umbilical and inguinal hernia repairs, history of medical noncompliance, GERD, OA and previously known Pericardial Effusion who presents to [facility] ER complaining of Left hip pain. Mr. Landa reports his symptoms began approximately 2 days ago when he lifted a heavy rollator out of his truck to go to HD with a delayed-onset of pain in his Left inner thigh that has progressively worsened since that time. He denies radiation of pain down into his thigh and he also denies weakness, numbness or tingling. He denies recent fall or trauma. There is no report of fever, chills, nausea, vomiting, diarrhea, constipation, history of VTE, chest pain with activity or severe dyspnea with exertion that limits his activities. A careful review of his records shows a recent echocardiogram done in October 2023 which revealed normal LV size with moderate concentric LVH and LVEF ~55% complicated by a moderate-sized clear pericardial effusion with follow-up CT recommended which is negative for pericardial effusion at this time. This patient is also requesting that he would like to be evaluated by his director community organization, Dr. Noland, this admission for preoperative cardiac clearance. In the ER he noted to have radiographic evidence of an mildly impacted Atraumatic Left Femoral Subcapital Fracture with joint space maintained and no other acute fracture noted along with postoperative changes of previous anterior abdominal wall repair and residual contrast noted in multiple diverticula. The ER physician then spoke with Dr. Marc of orthopedic surgery who recommended patient be admitted to the hospitalist service and he will formally consult in the AM for planned ORIF which was done. The patient was then admitted to the PCU for ongoing care for a stay that is expected to extend beyond 2 midnights. [facility] Medical History Wears glasses Cancer Cancer Pressure ulcer History of renal dialysis History of renal disease Injury of back History of GI bleed Gastric reflux Shortness of breath on exertion History of stress test History of echocardiogram Cardiology follow-up encounter Thrombus of venous dialysis catheter ESRD (end stage renal disease) on dialysis Acute respiratory insufficiency Medical non-compliance Acute exacerbation of chronic heart failure Chronic kidney disease (CKD) Pleural effusion Dyspnea Acute kidney injury Adenocarcinoma of esophagus LEELA (acute kidney injury) Non-smoker Esophageal carcinoma Atherosclerosis of coronary artery of [place] heart without angina pectoris 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 Essential (primary) hypertension Non-rheumatic aortic stenosis Syncope and collapse Hyperlipidemia Atherosclerotic heart disease of [place] coronary artery with other forms of angina pectoris Encounter for long-term current use of high risk medication abnormal stress test Angina pectoris Exertional chest pain URI (upper respiratory infection) Home Medications ?Medication ?Instructions ?Recorded ?Last Taken ?Type atorvastatin 80 mg tablet 80 mg PO QHS CHOLESTEROL #90 tabs 05/15/22 12/24/23 Rx ezetimibe 10 mg tablet 10 mg PO DAILY CHOLESTEROL #90 tabs 05/15/22 12/24/23 Rx acetaminophen 325 mg tablet 650 mg (2 x 325 mg) PO Q6H PRN PRN 10/25/23 Unknown Rx Pain 1-10 Or Fever >100.7 #0 tabs melatonin 3 mg tablet 3 mg PO QHS PRN PRN Insomnia #0 10/25/23 12/24/23 Rx tabs metoprolol tartrate 25 mg tablet 25 mg PO BID #0 tabs 10/25/23 12/24/23 Rx pantoprazole 40 mg tablet,delayed 40 mg PO BID #0 tabs 10/25/23 12/24/23 Rx release ferrous sulfate 325 mg (65 mg 325 mg PO DAILY #90 tabs 11/20/23 12/24/23 Rx iron) tablet polyethylene glycol 3350 17 17 g PO DAILY PRN constipation 12/04/23 Unknown History gram/dose oral powder (Miralax) ondansetron 4 mg disintegrating 4 mg PO Q8H PRN PRN nausea and 12/25/23 12/25/23 08:00 History tablet vomiting fluticasone propionate 50 1 spray intranasal DAILY 02/14/24 Unknown History mcg/actuation nasal spray,suspension nitroglycerin 0.4 mg sublingual 0.4 mg sublingual PRN PRN angina 02/14/24 Unknown History tablet Allergy/AdvReac Type Severity Reaction Status Date / Time No Known Allergies Allergy Verified 02/14/24 18:09 Family History Father Heart disease Myocardial infarction Hypertension Brother Hypertension Sister Heart disease Myocardial infarction Surgical History History of cardiac catheterization History of esophagogastroduodenoscopy (EGD) Hx of surgical procedure History of aortic valve replacement (03/03/19) History of coronary artery stent placement (12/31/18) H/O coronary artery bypass surgery (09/18/02) History of tonsillectomy History of hernia repair Social History Smoking Status: Never smoker alcohol intake: never substance use type: does not use caffeine: No what type of physical activity do you participate in: walking frequency: daily ROS ROS Narrative Review of Systems: Constitutional: Patient denies fever or chills. Eyes: Patient denies changes in vision or discharge from eyes. ENT: Patient denies runny nose, sore throat or ear pain. Resp: Patient denies SOB or cough. CV: Patient denies chest pain, palpitations or heart racing. GI: Patient denies abdominal pain, nausea, vomiting, diarrhea or constipation. : Patient denies dysuria or hematuria. MSK: Patient admits to pain in Left hip as per HPI. Skin: Patient denies rash, abscess or jaundice. Psych: Patient denies symptoms of uncontrolled depression or anxiety. Neuro: Patient denies headache, paresthesias or focal neurologic deficits. Allergy: Patient denies lip swelling, tongue swelling or urticaria. Hematology: Patient denies easy bleeding or easy bruisability. Endocrinology: Patient denies polyuria, polydipsia or polyphagia. 14 point ROS otherwise negative except for positives noted above in HPI. Vital Signs Vital Signs Vital Signs: 02/14/24 18:09 Temperature 98 F Temperature Source Temporal Pulse Rate 96 Respiratory Rate 15 Blood Pressure 117/77 Blood Pressure Mean 90 Pulse Ox 98 Oxygen Delivery Method Room Air Physical Exam Const alert, oriented x3, no apparent distress, average body habitus and healthy appearing General Appearance: cooperative HEENT normocephalic, head/scalp atraumatic, hearing grossly normal bilaterally and moist oral mucous membranes Eyes PERRL and EOMs intact bilaterally Neck no lymphadenopathy and supple Resp normal respiratory effort, no retractions, no use of accessory muscles and clear to auscultation bilaterally Cardio regular rate and regular rhythm GI normal to inspection, nondistended, normoactive bowel sounds, soft to palpation, non-tender and non-distended Extremity Extremity Narrative: Left hip with limited ROM and TTP. Skin Skin Narrative: Patient has no evidence of rash, abscess or jaundice. Neuro oriented x3, CN's II-XII intact bilaterally, moves all extremities and no focal motor deficits Sensorium / Orientation: awake, alert, oriented to person, oriented to place and oriented to time Speech: speech normal Psych affect normal Results Medical Records Data Attestation: I reviewed the patient's medical records Lab / Micro Data Attestation: I reviewed the patient's lab results. 02/14/24 23:30 02/14/24 23:30 Imaging Radiology Impression Hip/Pelvis X-Ray 02/14/24 20:50 IMPRESSION: 1. Mildly impacted LEFT femoral subcapital fracture. Joint space maintained. 2. No other fracture noted. 3. Pelvic ring is intact. 4. Postoperative changes of prior anterior abdominal wall repair. Residual contrast within multiple diverticula noted Electronically Signed: Rios Jack MD at 22:32 EST , [facility] Imaging Services [address] [place] [address] Chest without Contrast MR#: [id number] Acct: [id number] Name: NICKO LANDA Rep #: [id number] : 1955 M 68 From: Davion Marley MD PCP: Dr. Yaw Singh MD Status: ADM IN Study: Chest without Contrast Date of Exam: 02/15/24 Exam# [id number] Ordering Dr: Jesus Manuel Huerta DO EXAM: CT CHEST WITHOUT INTRAVENOUS CONTRAST CLINICAL INDICATION: History of pericardial effusion on recent echo. TECHNIQUE: Helically acquired images were obtained of the chest without intravenous contrast. This CT exam was performed using one or more of the following dose reduction techniques: automated exposure control, adjustment of the mA and/or kV according to patient size, and/or use of iterative reconstruction technique. RADIATION DOSE: Total DLP: 372.51 mGy-cm. COMPARISON: Chest CT of 11/14/2023 FINDINGS: LUNGS AND PLEURAL SPACES: A moderate to large left pleural effusion is present with mild interval decrease in size. The loculated pleural fluid previously seen extending to the left apex has resolved. A small right pleural effusion is present, minimally smaller than on the prior study. Within the inferolateral aspect of the right upper lobe, a 1.5 cm stellate focus of groundglass opacity has developed in a subpleural location, most likely atelectasis or scarring, with adjacent pleural thickening. Atelectasis noted adjacent to the pleural effusions. No patchy airspace disease. No pneumothorax. HEART: Findings of previous CABG are again noted. Extensive coronary artery calcification. Pericardium is minimally thickened. No significant pericardial effusion. No pericardial calcification. MEDIASTINUM: Findings of previous esophagectomy and gastric pull-up procedure are noted.: Stomach is filled with ingested particulate matter. The [place] upper thoracic esophagus is minimally dilated and contains an air-fluid level consistent with gastroesophageal reflux. Findings of chronic granulomatous infection are present. A few normal-sized mediastinal lymph nodes are present. No mediastinal adenopathy. THYROID: Unremarkable. No thyroid lesions. BONES/JOINTS: Findings of previous median sternotomy are again noted. No acute osseous abnormality. VASCULATURE: Surgical changes are again noted at the aortic root. The thoracic aorta is mildly calcific. There is fusiform dilatation of the ascending thoracic aorta which measures 4.1 cm in transverse diameter, as can be seen with aortic valvular disease; caliber of the ascending thoracic aorta is unchanged. No intimal calcification is placement is noted. INTRAPERITONEAL SPACE: Visualized portions of the liver, gallbladder, spleen, and adrenal glands are unremarkable. Pancreas is atrophic. Retained contrast noted within a few colonic diverticula. No pneumoperitoneum is seen. CT/Chest without Contrast IMPRESSION: 1. No significant pericardial effusion. 2. Bilateral pleural effusions with mild decrease in size of the left pleural effusion and minimal decrease in size of the right pleural effusion since 11/14/2023. Adjacent compressive atelectasis. 3. Findings of partial esophagectomy and gastric pull-up procedure again noted. Electronically Signed: Davion Marley MD at 2:08 EST , CC: Dr. Jesus Manuel Huerta DO; Dr. Yaw Singh MD ~ Medicare Contact Specialist: Signed Assessment & Plan Assessment/Plan (1) Hip fracture: QUALIFIERS: Encounter type: initial encounter Fracture type: closed Laterality: left Qualified Code(s): S72.002A - Fracture of unspecified part of neck of left femur, initial encounter for closed fracture (2) ESRD (end stage renal disease) on dialysis: (3) Preoperative evaluation to rule out surgical contraindication: (4) History of coronary artery disease: (5) H/O coronary artery bypass surgery: (6) History of coronary artery stent placement: (7) History of aortic valve replacement: (8) Anemia: QUALIFIERS: Anemia type: unspecified type Qualified Code(s): D64.9 - Anemia, unspecified (9) 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 angina pectoris: QUALIFIERS: [place] vs. transplanted heart: [place] heart Qualified Code(s): I25.810 - Atherosclerosis of coronary artery bypass graft(s) without angina pectoris PLAN: Plan 1. Atraumatic Left Femoral Subcapital Fracture with joint space maintained and no other acute fracture noted - Admit to PCU. Keep NPO for potential planned ORIF in AM. Patient has no absolute contraindications to medically-necessary [id number] risk orthopedic surgery. 2. Recent echocardiogram done in October 2023 which revealed normal LV size with moderate concentric LVH and LVEF ~55% complicated by a moderate-sized clear pericardial effusion with follow-up CT recommended which is negative for pericardial effusion at this time complicating #1 - We will consult Dr. Noland of [facility] to see this patient on-rounds in the AM for further recommendations regarding cardiac clearance for surgery due his significant medical complexity with help appreciated in advance. 3. ESRD on HD; (M-W-) compounding #1 & #2 - Nephrology consulted for scheduled HD in the AM with help appreciated in advance. 4. History of AVF thrombus; previously on Eliquis which he has been off since he left [facility] - Noted. 5. CAD; s/p CABG x 3 (2002) with numerous subsequent stents - Noted. 6. History of nonrheumatic aortic stenosis; s/p AVR (2018) - Noted. 7. Essential hypertension - Continue home medications plus give prn IV Hydralazine for systolic blood pressure > 160 mmHg. 8. Hyperlipidemia - Resume statin. 8. History of syncope and collapse - Noted. 10. History of esophageal carcinoma (2020); s/p esophagectomy with pull-up procedure, chemotherapy and radiation - Noted. 11. History of GI bleed - Stable with no evidence of recurrence. 12. Chronic anemia - Stable with hemoglobin of 12.5 g/dL present on admission. 13. History of sepsis - Noted. 14. History of pressure ulcer - Noted. 15. History of umbilical and inguinal hernia repairs - Noted. 16. History of medical noncompliance - Noted. 17. GERD - Continue PPI BID as before. 18. OA - Give Tylenol prn. 19. DVT prophylaxis - Place SCD on RLE. We will avoid preoperative blood thinners in cases of traumatic fracture due to increased risk of potential bleeding complications. Finally, we will defer postoperative DVT prophylaxis regimen to orthopedist. Total time: Approximately (but not less than) 75 minutes. Charges/Coding Visit Charges Inpatient E&M: 81264 Init Hosp L3
[2024-02-14 23:37] VITALS: BP 147/94; PULSE 101; RESP 18; TEMP 36.6; O2SAT 95
[2024-02-14 23:48] LABS: Absolute Lymphocyte Count 0.94 X10^3/uL (0.83-4.51); Basophil# 0.06 X10^3/uL; Basophil% 1.1 % (0-1); Eosinophil# 0.08 X10^3/uL; Eosinophils% 1.4 % (0-5); Hematocrit 41.8 % (40-54); Hemoglobin 12.5 g/dL (13.0-16.5); Lymphocyte # 0.94 X10^3/ul (0.83-4.51); Lymphocyte % 16.8 % (19-41); Mean Corp Hgb Conc 29.9 g/dL (32-36); Mean Corpuscular Hgb 27.8 pg (27.0-32.0); Mean Corpuscular Volume 93.1 fL (80-94); Mean Platelet Vol. 9.6 fl (6.2-12.0); Monocyte# 0.48 X10^3/uL; Monocyte% 8.6 % (0-10); NRBC Flagged by Analyzer 0 % (0-5); Neutrophil # 4.01 X10^3/uL (2.7-7.7); Neutrophil % 71.6 % (47-70); Platelet Count 127 K/mm3 (150-450); RBC Distribution Width CV 19.8 % (11.6-14.6); RBC Distribution Width SD 64.3 fl (35.1-43.9); Red Blood Count 4.49 M/mm3 (4.6-6.2); White Blood Count 5.6 K/mm3 (4.4-11.0)
[2024-02-14 23:54] LABS: International Normalized Ratio 1.2; Prothrombin Time (Protime)PT. 15.5 SECONDS (11.7-14.9)
[2024-02-15] VITALS (26 sets, daily range): BP systolic 107–218; BP diastolic 60–109; PULSE 68–120; RESP 16–18; TEMP 35.8–37; O2SAT 93–100; BMI 29.7; BMI 29.0
[2024-02-15 00:06] LABS: ALB/GLOB Ratio 0.6 RATIO (0.9-2.4); AST(SGOT) 20 U/L (15-37); Alanine Aminotransfer ALT/SGPT 45 U/L (16-61); Albumin, Serum 2.6 g/dL (3.2-5.0); Alkaline Phosphatase 112 U/L (45-117); Anion Gap 4 (5-15); BUN 32 mg/dL (7-18); BUN/Creat Ratio 9.5 RATIO (10-20); Calcium,Total 8.7 mg/dL (8.5-10.1); Chloride 101 mmol/L (98-107); Creatinine, Serum 3.36 mg/dL (0.70-1.30); EST Glomerular Filtration Rate 19 mL/min (>60); Est Glom Filt Rate - Afr Amer 24 mL/min (>60); Globulin 4.5 g/dL (2.2-4.2); Glucose 111 mg/dL (74-106); Potassium 4.3 mmol/L (3.5-5.1); Protein, Total 7.1 g/dL (6.4-8.2); Sodium Level 137 mmol/L (136-145)
--- NOTE | 2024-02-15 00:24 | CT_ITS ---
EXAM: CT CHEST WITHOUT INTRAVENOUS CONTRAST CLINICAL INDICATION: History of pericardial effusion on recent echo. TECHNIQUE: Helically acquired images were obtained of the chest without intravenous contrast. This CT exam was performed using one or more of the following dose reduction techniques: automated exposure control, adjustment of the mA and/or kV according to patient size, and/or use of iterative reconstruction technique. RADIATION DOSE: Total DLP: 372.51 mGy-cm. COMPARISON: Chest CT of 11/14/2023 FINDINGS: LUNGS AND PLEURAL SPACES: A moderate to large left pleural effusion is present with mild interval decrease in size. The loculated pleural fluid previously seen extending to the left apex has resolved. A small right pleural effusion is present, minimally smaller than on the prior study. Within the inferolateral aspect of the right upper lobe, a 1.5 cm stellate focus of groundglass opacity has developed in a subpleural location, most likely atelectasis or scarring, with adjacent pleural thickening. Atelectasis noted adjacent to the pleural effusions. No patchy airspace disease. No pneumothorax. HEART: Findings of previous CABG are again noted. Extensive coronary artery calcification. Pericardium is minimally thickened. No significant pericardial effusion. No pericardial calcification. MEDIASTINUM: Findings of previous esophagectomy and gastric pull-up procedure are noted.: Stomach is filled with ingested particulate matter. The [place] upper thoracic esophagus is minimally dilated and contains an air-fluid level consistent with gastroesophageal reflux. Findings of chronic granulomatous infection are present. A few normal-sized mediastinal lymph nodes are present. No mediastinal adenopathy. THYROID: Unremarkable. No thyroid lesions. BONES/JOINTS: Findings of previous median sternotomy are again noted. No acute osseous abnormality. VASCULATURE: Surgical changes are again noted at the aortic root. The thoracic aorta is mildly calcific. There is fusiform dilatation of the ascending thoracic aorta which measures 4.1 cm in transverse diameter, as can be seen with aortic valvular disease; caliber of the ascending thoracic aorta is unchanged. No intimal calcification is placement is noted. INTRAPERITONEAL SPACE: Visualized portions of the liver, gallbladder, spleen, and adrenal glands are unremarkable. Pancreas is atrophic. Retained contrast noted within a few colonic diverticula. No pneumoperitoneum is seen. CT/Chest without Contrast IMPRESSION: 1. No significant pericardial effusion. 2. Bilateral pleural effusions with mild decrease in size of the left pleural effusion and minimal decrease in size of the right pleural effusion since 11/14/2023. Adjacent compressive atelectasis. 3. Findings of partial esophagectomy and gastric pull-up procedure again noted. Electronically Signed: Davion Marley MD at 2:08 EST ,
--- NOTE | 2024-02-15 01:41 | ECHOCS_ITS ---
Reason For Study: Pericardial Effusion Procedure This was a 2D Doppler, Color Flow transthoracic echocardiogram. Contrast injection was performed. Patient scanned sitting upright due to left hip fracture. Exam performed portable in patient room. Left Ventricle Normal LV size. Mild assymetric septal hypertrophy. Left ventricular systolic function is normal. The estimated ejection fraction is 60 %. Stage 1 diastolic dysfunction. No regional wall motion abnormalities noted. Right Ventricle Normal RV size. Normal systolic function. Atria Normal left atrium. Normal right atrium. Mitral Valve The mitral valve chordae are thickened and/or calcified. Moderate mitral annular calcification. Mild diffuse mitral valve thickening. There is no mitral valve stenosis. Mild (1+) mitral valve insufficiency. Tricuspid Valve Normal tricuspid valve. Trivial tricuspid valve insufficiency. Aortic Valve Peak aortic valve gradient 8 mmHg. Mean aortic valve gradient 4 mmHg. Trivial aortic valve insufficiency. Stable appearing bioprosthetic aortic valve apparatus. Pulmonic Valve Normal pulmonic valve. Great Vessels Normal aortic root. Pericardium/Pleural No pericardial effusion. Large pleural effusion. Medication Diluted definity 1.5ml given slow IV push to enhance endocardial definition. MMode/2D Measurements & Calculations LVIDd: 4.6 cm IVSd: 1.2 cm LVOT diam: 2.0 cm LVIDs: 3.6 cm LVPWd: 0.90 cm RVDd: 3.6 cm FS: 23.2 % LVOT area: 3.0 cm2 LA dimension: 3.7 cm LAV(MOD-bp): 54.2 ml LA A4 area: 16.9 cm2 LAV(MOD-bp) Indexed: 25.6 ml/m2 LAV(MOD-sp2): 53.2 ml LAV(MOD-sp4): 50.8 ml TAPSE: 1.6 cm Time Measurements MV dec time: 0.25 sec Doppler Measurements & Calculations MV E max wilner: 66.8 cm/sec Lat Peak E' Wilner: 7.4 cm/sec Med Peak E' Wilner: 4.4 cm/sec MV A max wilner: 100.1 cm/sec E/E' lat: 9.0 E/E' med: 15.1 MV E/A: 0.67 MV V2 max: 131.6 cm/sec MV P1/2t max wilner: 113.2 cm/sec Ao V2 max: 144.1 cm/sec MV max P.9 mmHg MV P1/2t: 98.8 msec Ao max P.3 mmHg MV V2 mean: 73.9 cm/sec MV dec slope: 335.6 cm/sec2 Ao V2 mean: 94.8 cm/sec MV mean P.6 mmHg MVA(P1/2t): 2.2 cm2 Ao mean P.2 mmHg MV V2 VTI: 42.8 cm Ao V2 VTI: 30.9 cm MVA(VTI): 1.5 cm2 AV (velocity ratio): 0.69 COLE(I,D): 2.1 cm2 COLE(V,D): 2.0 cm2 LV V1 max: 93.5 cm/sec SV(LVOT): 64.8 ml PA V2 max: 86.3 cm/sec LV V1 max P.5 mmHg PA V2 mean: 54.3 cm/sec LV V1 mean P.7 mmHg LV V1 mean: 59.8 cm/sec LV V1 VTI: 21.3 cm TR max wilner: 270.0 cm/sec TR max P.2 mmHg ECHO/Echo Complete W/ Contrast Interpretation Summary The estimated ejection fraction is 60 %. Stage 1 diastolic dysfunction. Mild assymetric septal hypertrophy. Moderate mitral annular calcification. Mild (1+) mitral valve insufficiency. Stable appearing bioprosthetic aortic valve apparatus. The study was technically difficult. Contrast injection was performed. Ordering Physician: Jesus Manuel Huerta Performed By: Robert Tyson RCS
--- NOTE | 2024-02-15 05:55 | EKG12_ITS ---
Test Reason : PRE-OP Blood Pressure : */* mmHG Vent. Rate : 83 BPM Atrial Rate : 83 BPM P-R Int : 136 ms QRS Dur : 86 ms QT Int : 394 ms P-R-T Axes : 27 22 35 degrees QTcB Int : 462 ms Normal sinus rhythm Normal ECG When compared with ECG of 14-Feb-2024 23:18, MANUAL COMPARISON REQUIRED DATA IS UNCONFIRMED Confirmed by RONA MANNING, PATRICK ([id number]), production editor CRHISTIANO OWENS ([id number]) on 02/18/2024 12:37:01 PM Referred By: CORADO Confirmed By: PATRICK REA MD
[2024-02-15 06:43] LABS: Absolute Lymphocyte Count 0.62 X10^3/uL (0.83-4.51); Absolute Neutrophil Count 3.7 X10^3/uL (2.0-7.7); Basophil# 0.04 X10^3/uL; Basophil% 0.8 % (0-1); Eosinophil# 0.05 X10^3/uL; Hematocrit 40.6 % (40-54); Hemoglobin 12.3 g/dL (13.0-16.5); Lymphocyte # 0.62 X10^3/ul (0.83-4.51); Lymphocyte % 12.7 % (19-41); Mean Corp Hgb Conc 30.3 g/dL (32-36); Mean Corpuscular Volume 92.5 fL (80-94); Mean Platelet Vol. 9.6 fl (6.2-12.0); Monocyte# 0.42 X10^3/uL; Monocyte% 8.6 % (0-10); NRBC Flagged by Analyzer 0 % (0-5); Neutrophil # 3.72 X10^3/uL (2.7-7.7); Neutrophil % 76.5 % (47-70); Platelet Count 120 K/mm3 (150-450); RBC Distribution Width CV 19.5 % (11.6-14.6); RBC Distribution Width SD 62.8 fl (35.1-43.9); Red Blood Count 4.39 M/mm3 (4.6-6.2); White Blood Count 4.9 K/mm3 (4.4-11.0)
--- NOTE | 2024-02-15 07:52 | PN.HOSP_ITS ---
Reason for Visit Reason for Visit: Left hip pain Subjective Subjective Mr. Landa is a 68-year-old white male who has a complex past medical history who presented to the emergency department at [facility] on 02/14/2024 with a chief complaint of left hip pain. Patient reported that the pain started about 2 days prior to presentation he denied any known injury however he was lifting his walker out of the back of his truck and indicated he did have a small amount of pain during that but nothing significant. He reported that his left inner thigh was progressively worsening as he has been trying to walk on that lower extremity. He reported that on the day of presentation when he was attempting to walk with his walker he had worsening pain to the point where he is unable to walk which prompted him to be evaluated in emergency department. Vital signs on presentation showed temperature of 98, heart rate 96, respirate 15, blood pressure 117/77 and pulse ox was 98% on room air. CBC shows a mild anemia with a hemoglobin of 12.5, thrombocytopenia with a platelet count of 127,000 and a normal white count. Coags were overtly unremarkable. Electrolytes were unremarkable. BUN and serum creatinine were elevated at 32 and 3.36 respectively however the patient is HD dependent at baseline. Liver function was were normal. Patient states he is currently comfortable. States he really desires to go home and would prefer not to go to a fci but if it is absolutely necessary he would like to go to [facility]. Pain is well-controlled and plan is for surgery later today. Objective Data Objective Data Vital Signs: Vital Signs Temp Pulse Resp BP Pulse Ox O2 Del Method 97.4 F L 81 18 143/86 H 98 Room Air 02/15/24 06:00 02/15/24 06:17 02/15/24 06:00 02/15/24 06:00 02/15/24 06:00 02/15/24 06:00 Oxygen Delivery Method Room Air Weight: 93.8 kg Body Mass Index (BMI) 29.7 Intake & Output: Intake and Output for Last 24 Hours 02/13/24 02/14/24 02/15/24 23:59 23:59 23:59 Intake Total 0 / 0 Output Total 0 / 0 Balance 0 / 0 Lab / Micro Data 02/15/24 06:30 02/15/24 06:30 Labs: Laboratory Results - last 24 hr 02/14/24 23:30: WBC 5.6, RBC 4.49 L, Hgb 12.5 L, Hct 41.8, MCV 93.1, MCH 27.8, M CHC 29.9 L, RDW Std Deviation 64.3 H, RDW Coeff of Marcos 19.8 H, Plt Count 127 L, MPV 9.6, Immature Gran % (Auto) 0.500, Neut % (Auto) 71.6 H, Lymph % (Auto) 16.8 L, [place] % (Auto) 8.6, Eos % (Auto) 1.4, Baso % (Auto) 1.1 H, Absolute Neuts (auto) 4.0, Absolute Lymphs (auto) 0.94, Nucleated RBC % 0, PT 15.5 H, INR 1.2, APTT 29.0, Sodium 137, Potassium 4.3, Chloride 101, Carbon Dioxide 31.0, Anion Gap 4 L, BUN 32 H, Creatinine 3.36 H, Est GFR (MDRD) Af Amer 24 L, Est GFR (MDRD) Non-Af 19 L, BUN/Creatinine Ratio 9.5 L, Glucose 111 H, Calcium 8.7, Total Bilirubin 0.60, AST 20, ALT 45, Alkaline Phosphatase 112, Total Protein 7.1, Albumin 2.6 L, Globulin 4.5 H, Albumin/Globulin Ratio 0.6 L 02/15/24 06:30: WBC 4.9, RBC 4.39 L, Hgb 12.3 L, Hct 40.6, MCV 92.5, MCH 28.0, M CHC 30.3 L, RDW Std Deviation 62.8 H, RDW Coeff of Marcos 19.5 H, Plt Count 120 L, MPV 9.6, Immature Gran % (Auto) 0.400, Neut % (Auto) 76.5 H, Lymph % (Auto) 12.7 L, [place] % (Auto) 8.6, Eos % (Auto) 1.0, Baso % (Auto) 0.8, Absolute Neuts (auto) 3.7, Absolute Lymphs (auto) 0.62 L, Nucleated RBC % 0 Radiography Diagnostic Testing: Radiology Impression Hip/Pelvis X-Ray 02/14/24 20:50 IMPRESSION: 1. Mildly impacted LEFT femoral subcapital fracture. Joint space maintained. 2. No other fracture noted. 3. Pelvic ring is intact. 4. Postoperative changes of prior anterior abdominal wall repair. Residual contrast within multiple diverticula noted Electronically Signed: Rios Jack MD at 22:32 EST , Chest CT 02/15/24 00:24 IMPRESSION: 1. No significant pericardial effusion. 2. Bilateral pleural effusions with mild decrease in size of the left pleural effusion and minimal decrease in size of the right pleural effusion since 11/14/2023. Adjacent compressive atelectasis. 3. Findings of partial esophagectomy and gastric pull-up procedure again noted. Electronically Signed: Davion Marley MD at 2:08 EST , Physical Exam Const alert, oriented x3, no apparent distress and well nourished Constitutional Narrative: Overweight, upper middle-aged, white male, lying in bed, appears comfortable currently, nontoxic, very pleasant HEENT head/scalp atraumatic and moist oral mucous membranes Head and Scalp: normocephalic Resp normal respiratory effort, no retractions, no use of accessory muscles and clear to auscultation bilaterally Auscultation: Negative for rales, rhonchi or wheezes Cardio regular rate, regular rhythm, S1 normal heart sound, S2 normal heart sound, no rub, no gallops and no clicks; Negative for no murmurs Cardio Narrative: 3 out of 6 systolic murmur loudest at right upper sternal border GI normal to inspection, nondistended, normoactive bowel sounds, soft to palpation and non-tender Extremity no clubbing, cyanosis or edema Extremity Narrative: Left lower extremity is slightly shortened and externally rotated Skin Skin Narrative: Tunneled dialysis catheter left chest, appears clean and dry Neuro oriented x3 and no focal motor deficits Neuro Narrative: Unable to move left lower extremity due to pain in the hip Speech: speech normal Psych affect normal Psych Narrative: Very pleasant, interacts appropriately Assessment & Plan Assessment/Plan (1) Subcapital fracture of left hip: PLAN: Plan Subcapital fracture of the left hip -OR later today -Patient has been cleared by cardiology -Continue IV fluids as ordered through surgery -Continue Tylenol but schedule 1 g 3 times daily -Stop morphine due to baseline renal dysfunction and transition to Dilaudid as needed -Start oxycodone 5 mg every 4 hours as needed for pain -Physical and Occupational Therapy postoperatively -Case management/social work consultation for assistance with discharge planning History of pericardial effusion -CT of the chest was performed and was unremarkable for any pericardial effusion -Cardiology has evaluated the patient and echocardiogram performed without any signs of pericardial effusion Bilateral pleural effusions -Small on the right but moderate on the left -Patient is on 100% on room air so I do not feel pressed to perform a thoracentesis while hospitalized -If does not improve with ongoing dialysis as an outpatient may be able to pursue as an outpatient to avoid trapped lung -Will recommend outpatient chest x-ray to follow-up Chronic anemia secondary to end-stage renal disease -Hemoglobin in presentation was 12.5 -Currently stable today -Will monitor in the postoperative period -Continue iron supplementation Recent GI bleed/GERD -Was admitted here in late December and had EGD for anemia with hemoglobin in the mid 7 range -Findings showed a esophageal gastric anastomosis with moderate stenosis that was biopsied and dilated as well as chronic gastritis -Biopsy showed chronic inflammation with no intestinal metaplasia. -Continue Protonix CAD/hyperlipidemia/essential hypertension/history of aortic valve stenosis -History of CABG x 3 in 2022 and PCI in 2019 -Aortic valve replacement in 2019 for aortic stenosis -Continue home atorvastatin -Continue home Zetia -Continue home metoprolol -Cardiology was consulted for preop optimization/clearance End-stage renal disease -HD dependent -Typical HD schedule is M -Nephrology is consulted History of esophageal cancer -History of esophagectomy with pull-up procedure--> 2020 -Status post chemo and radiation -Currently in remission DVT prophylaxis -Will start subcu heparin 3 times daily tomorrow postoperatively -Discharge DVT prophylaxis per primary service Charges/Coding Visit Charges Inpatient E&M: 20706 Subs Hosp L2
--- NOTE | 2024-02-15 08:25 | CON.PCM.CA_ITS ---
<Statement entered by Gurpreet Briones MD - 02/15/24 15:40> Pt seen & evaluated w/DEVYN. I personally interviewed & exam the pt. I was involved in all aspects of pt's orders, interpretation of results & treatment I independently reviewed all the record of this patient including the EKG current lab result imaging studies with echocardiogram I formulated cardiac care plan as per midlevel note and recommendation. Will continue to monitor and follow-up clinically. Once stable patient to follow-up with primary faith doctor at [facility] cardiac team for continuation of cardiac care Cardiac care plan explained in detail. Assessment & Plan Assessment/Plan (1) Preoperative evaluation to rule out surgical contraindication: (2) History of coronary artery stent placement: (3) History of aortic valve replacement: (4) H/O coronary artery bypass surgery: (5) Hyperlipidemia: QUALIFIERS: Hyperlipidemia type: unspecified Qualified Code(s): E 78.5 - Hyperlipidemia, unspecified PLAN: Plan * Echocardiogram demonstrated preserved ejection fraction. Patient had a stress test in 2020 that was negative for ischemia. From a cardiac standpoint feel that he can undergo surgery. . Do not feel that any additional testing needs to be done * In regards to his coronary artery disease we will continue with his metoprolol. Will also continue with his Zetia and his statin.. HPI Consult Data Date of Consult: 02/15/24 HPI Narrative HPI Narrative: NICKO ROSALES, is a 68 M who presented To [facility] emergency room on 02/14/2024 with left hip pain. Hip x-ray demonstrated mildly impacted left femoral subcapital fracture. We were asked to see patient for a preoperative assessment. Patient was last seen in our office in November 2022. He has a history of coronary artery disease with bypass surgery in 2003. In 2018 he had a non-STEMI and underwent a heart catheterization at that an outside hospital. Heart catheterization demonstrated patent left internal mammary artery to the left anterior descending artery, and occluded right internal mammary artery to the ramus intermedius, saphenous vein graft to the circumflex artery which was patent and the saphenous vein graft would of the second obtuse marginal branch to the LAD and diagonal with high-grade distal graft disease. He underwent successful stenting of the distal saphenous vein graft to the LAD diagonal with a 3.5 x 18 mm stent. He also has a history of hypertension and hyperlipidemia as well as aortic valve disease which is moderately severe with a peak gradient of 58 mmHg and a mean gradient of 36 mmHg with a valve area of 0.9 cm?. He was scheduled for and underwent a TAVR procedure with a 26 mm Vilma S3 valve on 03/03/2019. His most recent echocardiogram in January of 2021 demonstrated an ejection fraction of 55 to 60%, normal LV systolic function, mild LVH, grade 1 diastolic dysfunction, normal-appearing bioprosthetic aortic valve. Mean gradient of 12.2. Stress test in June 2020 demonstrated normal exercise myocardial perfusion test at a moderate workload with no evidence of ischemia. In October 2023 patient was admitted to [facility] with sepsis secondary to acute cystitis and bacteremia from Streptococcus. He did have acute kidney injury secondary to ATN and underwent a renal biopsy. Patient has been on dialysis since that time. From a cardiac standpoint he is doing well. He does not have any chest pain, worsening shortness of breath, palpitations, lightheadedness, dizziness, syncopal episodes. He does not have any lower extremity edema. He is still able to urinate. [facility] Medical History Wears glasses Cancer Cancer Pressure ulcer History of renal dialysis History of renal disease Injury of back History of GI bleed Gastric reflux Shortness of breath on exertion History of stress test History of echocardiogram Cardiology follow-up encounter Thrombus of venous dialysis catheter ESRD (end stage renal disease) on dialysis Acute respiratory insufficiency Medical non-compliance Acute exacerbation of chronic heart failure Chronic kidney disease (CKD) Pleural effusion Dyspnea Acute kidney injury Adenocarcinoma of esophagus LEELA (acute kidney injury) Non-smoker Esophageal carcinoma Atherosclerosis of coronary artery of [place] heart without angina pectoris 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 Essential (primary) hypertension Non-rheumatic aortic stenosis Syncope and collapse Hyperlipidemia Atherosclerotic heart disease of [place] coronary artery with other forms of angina pectoris Encounter for long-term current use of high risk medication abnormal stress test Angina pectoris Exertional chest pain URI (upper respiratory infection) Home Medications ?Medication ?Instructions ?Recorded ?Last Taken ?Type atorvastatin 80 mg tablet 80 mg PO QHS CHOLESTEROL #90 tabs 05/15/22 12/24/23 Rx ezetimibe 10 mg tablet 10 mg PO DAILY CHOLESTEROL #90 tabs 05/15/22 12/24/23 Rx acetaminophen 325 mg tablet 650 mg (2 x 325 mg) PO Q6H PRN PRN 10/25/23 Unknown Rx Pain 1-10 Or Fever >100.7 #0 tabs melatonin 3 mg tablet 3 mg PO QHS PRN PRN Insomnia #0 10/25/23 12/24/23 Rx tabs metoprolol tartrate 25 mg tablet 25 mg PO BID #0 tabs 10/25/23 12/24/23 Rx pantoprazole 40 mg tablet,delayed 40 mg PO BID #0 tabs 10/25/23 12/24/23 Rx release ferrous sulfate 325 mg (65 mg 325 mg PO DAILY #90 tabs 11/20/23 12/24/23 Rx iron) tablet polyethylene glycol 3350 17 17 g PO DAILY PRN constipation 12/04/23 Unknown History gram/dose oral powder (Miralax) ondansetron 4 mg disintegrating 4 mg PO Q8H PRN PRN nausea and 12/25/23 12/25/23 08:00 History tablet vomiting fluticasone propionate 50 1 spray intranasal DAILY 02/14/24 Unknown History mcg/actuation nasal spray,suspension nitroglycerin 0.4 mg sublingual 0.4 mg sublingual PRN PRN angina 02/14/24 Unknown History tablet Allergy/AdvReac Type Severity Reaction Status Date / Time No Known Allergies Allergy Verified 02/14/24 18:09 Family History Father Heart disease Myocardial infarction Hypertension Brother Hypertension Sister Heart disease Myocardial infarction Surgical History History of cardiac catheterization History of esophagogastroduodenoscopy (EGD) Hx of surgical procedure History of aortic valve replacement (03/03/19) History of coronary artery stent placement (12/31/18) H/O coronary artery bypass surgery (09/18/02) History of tonsillectomy History of hernia repair Social History Smoking Status: Never smoker alcohol intake: never substance use type: does not use caffeine: No what type of physical activity do you participate in: walking frequency: daily ROS ROS Narrative Review of Systems: Constitutional: Patient denies fever or chills. Eyes: Patient denies changes in vision or discharge from eyes. ENT: Patient denies runny nose, sore throat or ear pain. Resp: Patient denies SOB or cough. CV: Patient denies chest pain, palpitations or heart racing. GI: Patient denies abdominal pain, nausea, vomiting, diarrhea or constipation. : Patient denies dysuria or hematuria. MSK: Patient admits to pain in Left hip as per HPI. Skin: Patient denies rash, abscess or jaundice. Psych: Patient denies symptoms of uncontrolled depression or anxiety. Neuro: Patient denies headache, paresthesias or focal neurologic deficits. Hematology: Patient denies easy bleeding or easy bruisability. Physical Exam Const alert, oriented x3, no apparent distress, average body habitus and healthy appearing General Appearance: cooperative HEENT normocephalic, head/scalp atraumatic, hearing grossly normal bilaterally and moist oral mucous membranes Eyes PERRL and EOMs intact bilaterally Neck no lymphadenopathy and supple Resp normal respiratory effort, no retractions, no use of accessory muscles and clear to auscultation bilaterally Cardio regular rate and regular rhythm Rate: regular rate Rhythm: regular rhythm Heart Sounds: S1 normal, S2 normal and murmur continuous II/ GI normal to inspection, nondistended, normoactive bowel sounds, soft to palpation, non-tender and non-distended Neuro oriented x3, CN's II-XII intact bilaterally, moves all extremities and no focal motor deficits Sensorium / Orientation: awake, alert, oriented to person, oriented to place and oriented to time Speech: speech normal Psych affect normal Risk Stratification Risk Stratification Applicable: No Charges/Coding Multi Select Codes Visit Charges Office Visit/Consults: 64826 IP Consult L3 Objective Data Vital Signs: Vital Signs Temp Pulse Resp BP Pulse Ox O2 Del Method 97.4 F L 81 18 143/86 H 98 Room Air 02/15/24 06:00 02/15/24 06:17 02/15/24 06:00 02/15/24 06:00 02/15/24 06:00 02/15/24 06:00 Oxygen Delivery Method Room Air Weight: 206 lb 12.697 oz Body Mass Index (BMI) 29.7 Intake & Output: Intake and Output for Last 24 Hours 02/13/24 02/14/24 02/15/24 23:59 23:59 23:59 Intake Total 0 / 0 Output Total 0 / 0 Balance 0 / 0 Lab / Micro Data 02/15/24 06:30 02/14/24 23:30 Labs: Laboratory Results - last 24 hr 02/14/24 23:30: WBC 5.6, RBC 4.49 L, Hgb 12.5 L, Hct 41.8, MCV 93.1, MCH 27.8, M CHC 29.9 L, RDW Std Deviation 64.3 H, RDW Coeff of Marcos 19.8 H, Plt Count 127 L, MPV 9.6, Immature Gran % (Auto) 0.500, Neut % (Auto) 71.6 H, Lymph % (Auto) 16.8 L, [place] % (Auto) 8.6, Eos % (Auto) 1.4, Baso % (Auto) 1.1 H, Absolute Neuts (auto) 4.0, Absolute Lymphs (auto) 0.94, Nucleated RBC % 0, PT 15.5 H, INR 1.2, APTT 29.0, Sodium 137, Potassium 4.3, Chloride 101, Carbon Dioxide 31.0, Anion Gap 4 L, BUN 32 H, Creatinine 3.36 H, Est GFR (MDRD) Af Amer 24 L, Est GFR (MDRD) Non-Af 19 L, BUN/Creatinine Ratio 9.5 L, Glucose 111 H, Calcium 8.7, Total Bilirubin 0.60, AST 20, ALT 45, Alkaline Phosphatase 112, Total Protein 7.1, Albumin 2.6 L, Globulin 4.5 H, Albumin/Globulin Ratio 0.6 L 02/15/24 06:30: WBC 4.9, RBC 4.39 L, Hgb 12.3 L, Hct 40.6, MCV 92.5, MCH 28.0, M CHC 30.3 L, RDW Std Deviation 62.8 H, RDW Coeff of Marcos 19.5 H, Plt Count 120 L, MPV 9.6, Immature Gran % (Auto) 0.400, Neut % (Auto) 76.5 H, Lymph % (Auto) 12.7 L, [place] % (Auto) 8.6, Eos % (Auto) 1.0, Baso % (Auto) 0.8, Absolute Neuts (auto) 3.7, Absolute Lymphs (auto) 0.62 L, Nucleated RBC % 0 Cardiology Labs/Tests 02/14/24 23:30: WBC 5.6, RBC 4.49 L, Hgb 12.5 L, Hct 41.8, MCV 93.1, MCH 27.8, M CHC 29.9 L, Plt Count 127 L, MPV 9.6, Immature Gran % (Auto) 0.500, Neut % (Auto) 71.6 H, Lymph % (Auto) 16.8 L, [place] % (Auto) 8.6, Eos % (Auto) 1.4, Baso % (Auto) 1.1 H, Absolute Neuts (auto) 4.0, Nucleated RBC % 0, PT 15.5 H, INR 1.2, APTT 29.0, Sodium 137, Potassium 4.3, Chloride 101, Carbon Dioxide 31.0, A nion Gap 4 L, BUN 32 H, Creatinine 3.36 H, Est GFR (MDRD) Af Amer 24 L, Est GFR (MDRD) Non-Af 19 L, BUN/Creatinine Ratio 9.5 L, Glucose 111 H, Calcium 8.7, Total Bilirubin 0.60 02/15/24 06:30: WBC 4.9, RBC 4.39 L, Hgb 12.3 L, Hct 40.6, MCV 92.5, MCH 28.0, M CHC 30.3 L, Plt Count 120 L, MPV 9.6, Immature Gran % (Auto) 0.400, Neut % (Auto) 76.5 H, Lymph % (Auto) 12.7 L, [place] % (Auto) 8.6, Eos % (Auto) 1.0, Baso % (Auto) 0.8, Absolute Neuts (auto) 3.7, Nucleated RBC % 0 ECHO:The estimated ejection fraction is 60 %. Stage 1 diastolic dysfunction. Mild assymetric septal hypertrophy. Moderate mitral annular calcification. Mild (1+) mitral valve insufficiency. Stable appearing bioprosthetic aortic valve apparatus. The study was technically difficult. Contrast injection was performed. Radiography Diagnostic Testing: Radiology Impression Hip/Pelvis X-Ray 02/14/24 20:50 IMPRESSION: 1. Mildly impacted LEFT femoral subcapital fracture. Joint space maintained. 2. No other fracture noted. 3. Pelvic ring is intact. 4. Postoperative changes of prior anterior abdominal wall repair. Residual contrast within multiple diverticula noted Electronically Signed: Rios Jack MD at 22:32 EST , Chest CT 02/15/24 00:24 IMPRESSION: 1. No significant pericardial effusion. 2. Bilateral pleural effusions with mild decrease in size of the left pleural effusion and minimal decrease in size of the right pleural effusion since 11/14/2023. Adjacent compressive atelectasis. 3. Findings of partial esophagectomy and gastric pull-up procedure again noted. Electronically Signed: Davion Marley MD at 2:08 EST ,
[2024-02-15 08:33] LABS: International Normalized Ratio 1.5
[2024-02-15 08:34] LABS: Partial Thromboplast Time 32.2 Seconds (24.1-36.2)
[2024-02-15 09:14] LABS: AST(SGOT) 15 U/L (15-37); Alanine Aminotransfer ALT/SGPT 37 U/L (16-61); Albumin, Serum 2.4 g/dL (3.2-5.0); Alkaline Phosphatase 105 U/L (45-117); Bilirubin, Direct 0.21 mg/dL (0.00-0.30); Globulin 3.9 g/dL (2.2-4.2); Protein, Total 6.3 g/dL (6.4-8.2)
--- NOTE | 2024-02-15 10:50 | CASEMGMT ---
RN CM Face to Face with patient for initial transition planning/care coordination assessment. RN CM introduced self and role at [facility]. Patient lying in bed, alert and oriented. Patient willing to participate in assessment and is able to answer all questions appropriately. Care providers, pharmacy, and demographics verified. Strata: 3 PCP: Samantha Specialists: Yari, marketing intelligence analyst; Ludin, body welder; Preferred Pharmacy: [facility] Insurance: [facility], MMO Prescription Benefit: yes Living Will/HPOA: yes, daughter Avani Peters LNOK: , daughter Living Arrangements: Patient lives with in a in-law suite attached to daughter's home with ramp to enter. Patient states he is independent at home. Transportation: self, , daughter DME/HHC: Patient has shower chair, cane, walker, rollator, wheelchair, and home oxygen through [employer] at 2lpm continuous with portability. Patient has HD at [facility] on MWF at 1045. Patient has been to [facility] in the past. Patient states he is active with [facility]. Patient wishes to discharge home and is motivated to work with therapy after surgery. Patient wishes to return home with resumption of [facility]. Patient would consider SNF if recommended, SNF list provided. Patient states he has no further needs or concerns at this time. CM to follow for discharge planning needs that may arise. Disposition Plan: TBD, anticipate HHC vs SNF pending course of treatment and progress with therapy. Di MARINO, RN, CM
--- NOTE | 2024-02-15 11:19 | CASEMGMT ---
Discharge Planning Resumption referral sent to [facility]. Asked for confirmation of disciplines currently receiving. Tata Nieto DC Planning Asst.
--- NOTE | 2024-02-15 12:14 | CASEMGMT ---
MICHELE HILLMAN NOTE: Sheri @ [facility] notified that pt has been admitted to [facility]. Pt goes to OP HD MWF, chair time 11 AM. She was made aware pt is wishing to discharge home and he may be ready for discharge over the weekend, if he is medically ready and does well w/therapy. If so, he will be going to OP therapy on Saturday 02/17. She will f/u with EEG TECH CM on Sunday re: this. Sujata CARREONN MICHELE HILLMAN
--- NOTE | 2024-02-15 12:43 | CASEMGMT ---
MICHELE HILLMAN NOTE: Call received from Emilee @ [facility]. She states pt is active w/them for SN, PT, and OT. She was made aware pt is hoping to return home w/MICAELA with them. Also, made aware, if pt is safe to discharge home, he may possibly be ready over the weekend. Sujata MARINO RN CM
[2024-02-15] MEDS: PureFlow B 2K Dialysis Soln 1 BAG 6 BAG PF (13:48)
[2024-02-15] MEDS: 0.9% Normal Saline 1,000 ML IV.SOLN. 1000 ML OPERA.SITE (13:48)
[2024-02-15] MEDS: 0.9% Saline Lock 10 ML Syringe IV (13:49)
[2024-02-15] MEDS: Heparin 10,000 UNITS/10 ML Vial IV (13:49)
--- NOTE | 2024-02-15 14:27 | CON.PCM.RE_ITS ---
Assessment & Plan Assessment/Plan (1) End stage renal disease on dialysis: PLAN: Plan Acute renal failure. On hemodialysis. Seen on dialysis today. Doing well so far. Urine output has improved. Creatinine about 3 and half. Will check 24- hour urine collection as outpatient. HPI Consult Data Date of Consult: 02/15/24 HPI Narrative Reason for Consultation: LEELA on HD HPI Narrative: NICKO ROSALES, is a 68 M who presents to hospital with hip fracture. renal consulted in view of LEELA. He was recently admitted here, started on dialysis due to ATN. Urine output has been somewhat better recently. Came in with hip fracture, scheduled to go to surgery later today. [facility] Medical History Wears glasses Cancer Cancer Pressure ulcer History of renal dialysis History of renal disease Injury of back History of GI bleed Gastric reflux Shortness of breath on exertion History of stress test History of echocardiogram Cardiology follow-up encounter Thrombus of venous dialysis catheter ESRD (end stage renal disease) on dialysis Acute respiratory insufficiency Medical non-compliance Acute exacerbation of chronic heart failure Chronic kidney disease (CKD) Pleural effusion Dyspnea Acute kidney injury Adenocarcinoma of esophagus LEELA (acute kidney injury) Non-smoker Esophageal carcinoma Atherosclerosis of coronary artery of [place] heart without angina pectoris 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 Essential (primary) hypertension Non-rheumatic aortic stenosis Syncope and collapse Hyperlipidemia Atherosclerotic heart disease of [place] coronary artery with other forms of angina pectoris Encounter for long-term current use of high risk medication abnormal stress test Angina pectoris Exertional chest pain URI (upper respiratory infection) Home Medications ?Medication ?Instructions ?Recorded ?Last Taken ?Type atorvastatin 80 mg tablet 80 mg PO QHS CHOLESTEROL #90 tabs 05/15/22 12/24/23 Rx ezetimibe 10 mg tablet 10 mg PO DAILY CHOLESTEROL #90 tabs 05/15/22 12/24/23 Rx acetaminophen 325 mg tablet 650 mg (2 x 325 mg) PO Q6H PRN PRN 10/25/23 Unknown Rx Pain 1-10 Or Fever >100.7 #0 tabs melatonin 3 mg tablet 3 mg PO QHS PRN PRN Insomnia #0 10/25/23 12/24/23 Rx tabs metoprolol tartrate 25 mg tablet 25 mg PO BID #0 tabs 10/25/23 12/24/23 Rx pantoprazole 40 mg tablet,delayed 40 mg PO BID #0 tabs 10/25/23 12/24/23 Rx release ferrous sulfate 325 mg (65 mg 325 mg PO DAILY #90 tabs 11/20/23 12/24/23 Rx iron) tablet polyethylene glycol 3350 17 17 g PO DAILY PRN constipation 12/04/23 Unknown History gram/dose oral powder (Miralax) ondansetron 4 mg disintegrating 4 mg PO Q8H PRN PRN nausea and 12/25/23 12/25/23 08:00 History tablet vomiting fluticasone propionate 50 1 spray intranasal DAILY 02/14/24 Unknown History mcg/actuation nasal spray,suspension nitroglycerin 0.4 mg sublingual 0.4 mg sublingual PRN PRN angina 02/14/24 Unknown History tablet Allergy/AdvReac Type Severity Reaction Status Date / Time No Known Allergies Allergy Verified 02/14/24 18:09 Family History Father Heart disease Myocardial infarction Hypertension Brother Hypertension Sister Heart disease Myocardial infarction Surgical History History of cardiac catheterization History of esophagogastroduodenoscopy (EGD) Hx of surgical procedure History of aortic valve replacement (03/03/19) History of coronary artery stent placement (12/31/18) H/O coronary artery bypass surgery (09/18/02) History of tonsillectomy History of hernia repair Social History Smoking Status: Never smoker alcohol intake: never substance use type: does not use caffeine: No what type of physical activity do you participate in: walking frequency: daily ROS ROS Narrative negative except above Physical Exam Narrative Alert awake oriented x 3 no obvious distress no pallor no icterus no JVD s1s2 no murmurs lungs clear abdomen soft no organomegaly no edema no cyanosis Lab / Micro Data 02/15/24 06:30 02/14/24 23:30 Labs: Laboratory Results - last 24 hr 02/14/24 23:30: WBC 5.6, RBC 4.49 L, Hgb 12.5 L, Hct 41.8, MCV 93.1, MCH 27.8, M CHC 29.9 L, RDW Std Deviation 64.3 H, RDW Coeff of Marcos 19.8 H, Plt Count 127 L, MPV 9.6, Immature Gran % (Auto) 0.500, Neut % (Auto) 71.6 H, Lymph % (Auto) 16.8 L, [place] % (Auto) 8.6, Eos % (Auto) 1.4, Baso % (Auto) 1.1 H, Absolute Neuts (auto) 4.0, Absolute Lymphs (auto) 0.94, Nucleated RBC % 0, PT 15.5 H, INR 1.2, APTT 29.0, Sodium 137, Potassium 4.3, Chloride 101, Carbon Dioxide 31.0, Anion Gap 4 L, BUN 32 H, Creatinine 3.36 H, Est GFR (MDRD) Af Amer 24 L, Est GFR (MDRD) Non-Af 19 L, BUN/Creatinine Ratio 9.5 L, Glucose 111 H, Calcium 8.7, Total Bilirubin 0.60, AST 20, ALT 45, Alkaline Phosphatase 112, Total Protein 7.1, Albumin 2.6 L, Globulin 4.5 H, Albumin/Globulin Ratio 0.6 L 02/15/24 06:30: WBC 4.9, RBC 4.39 L, Hgb 12.3 L, Hct 40.6, MCV 92.5, MCH 28.0, M CHC 30.3 L, RDW Std Deviation 62.8 H, RDW Coeff of [place] 19.5 H, Plt Count 120 L, MPV 9.6, Immature Gran % (Auto) 0.400, Neut % (Auto) 76.5 H, Lymph % (Auto) 12.7 L, [place] % (Auto) 8.6, Eos % (Auto) 1.0, Baso % (Auto) 0.8, Absolute Neuts (auto) 3.7, Absolute Lymphs (auto) 0.62 L, Nucleated RBC % 0, PT 18.0 H, INR 1.5, APTT 32.2, Total Bilirubin 0.60, Direct Bilirubin 0.21, AST 15, ALT 37, Alkaline Phosphatase 105, Total Protein 6.3 L, Albumin 2.4 L, Globulin 3.9, Blood Type A POSITIVE, Antibody Screen NEGATIVE Imaging Radiology Impression Hip/Pelvis X-Ray 11/07/24 20:50 IMPRESSION: 1. Mildly impacted LEFT femoral subcapital fracture. Joint space maintained. 2. No other fracture noted. 3. Pelvic ring is intact. 4. Postoperative changes of prior anterior abdominal wall repair. Residual contrast within multiple diverticula noted Electronically Signed: Rios Jack MD at 22:32 EST , Chest CT 02/15/24 00:24 IMPRESSION: 1. No significant pericardial effusion. 2. Bilateral pleural effusions with mild decrease in size of the left pleural effusion and minimal decrease in size of the right pleural effusion since 11/14/2023. Adjacent compressive atelectasis. 3. Findings of partial esophagectomy and gastric pull-up procedure again noted. Electronically Signed: Davion Marely MD at 2:08 EST , Echocardiogram 02/15/24 01:41 Interpretation Summary The estimated ejection fraction is 60 %. Stage 1 diastolic dysfunction. Mild assymetric septal hypertrophy. Moderate mitral annular calcification. Mild (1+) mitral valve insufficiency. Stable appearing bioprosthetic aortic valve apparatus. The study was technically difficult. Contrast injection was performed. Ordering Physician: Jesus Manuel Huerta Performed By: Robert Tyson RCS
[2024-02-15 14:54] LABS: ALB/GLOB Ratio 0.7 RATIO (0.9-2.4); AST(SGOT) 16 U/L (15-37); Alanine Aminotransfer ALT/SGPT 38 U/L (16-61); Albumin, Serum 2.4 g/dL (3.2-5.0); Alkaline Phosphatase 108 U/L (45-117); Anion Gap 7 (5-15); BUN 34 mg/dL (7-18); BUN/Creat Ratio 9.9 RATIO (10-20); Calcium,Total 8.3 mg/dL (8.5-10.1); Chloride 104 mmol/L (98-107); Creatinine, Serum 3.43 mg/dL (0.70-1.30); EST Glomerular Filtration Rate 19 mL/min (>60); Est Glom Filt Rate - Afr Amer 23 mL/min (>60); Estimated Creatinine Clearance 23.15 ml/min; Globulin 3.4 g/dL (2.2-4.2); Glucose 85 mg/dL (74-106); Magnesium 2.2 mg/dL (1.6-2.6); Phosphorus 4.9 mg/dL (2.5-4.9); Potassium 4.4 mmol/L (3.5-5.1); Protein, Total 5.8 g/dL (6.4-8.2); Sodium Level 139 mmol/L (136-145)
--- NOTE | 2024-02-15 15:02 | PRE.ANES_ITS ---
ASA Classification* ASA Classification ASA Classification: 3 Assessment & Plan Anesthesia* Anesthesia Assessment Anesthesia Assessment: Discussed sedation and/or anesthesia options, risks, benefits, and alternatives with patient/parents/legal guardian/POA. Questions invited. The patient/parents/legal guardian/POA seems to understand and agrees to proceed with anesthesia plan. Reviewed the physical assessment, medical history, allergy history and patient home medications list prior to surgery/procedure/anesthetic and documented any changes. Performed airway and anesthesia risk assessments. Anesthesia Type Anesthesia Type: General History Source History Obtained from:: Patient and Chart Anesthesia Focused Assessment* Temperature: 96.4 F Pulse Rate: 68 Blood Pressure: 139/100 Respiratory Rate: 16 Pulse Ox: 100 Oxygen Delivery Method: Room Air Airway Assessment Mouth opens: >3 cm Mallampati Score: III Teeth Condition: Missing (Patient has a few missing teeth) Neck Range of motion (ROM): Full ROM Pertinent Findings EKG Pertinent Findings:: February 15, 2024. Normal sinus rhythm. Focused Labs Anesthesia Preop lab: CBC WBC 4.9 K/mm3 (4.4-11.0) 02/15/24 06:30 RBC 4.39 M/mm3 (4.6-6.2) L 02/15/24 06:30 Hgb 12.3 g/dL (13.0-16.5) L 02/15/24 06:30 Hct 40.6 % (40-54) 02/15/24 06:30 Plt Count 120 K/mm3 (150-450) L 02/15/24 06:30 CHEMISTRY Potassium 4.4 mmol/L (3.5-5.1) 02/15/24 06:30 Sodium 139 mmol/L (136-145) 02/15/24 06:30 Magnesium 2.2 mg/dL (1.6-2.6) 02/15/24 06:30 Phosphorus 4.9 mg/dL (2.5-4.9) 02/15/24 06:30 BUN 34 mg/dL (7-18) H 02/15/24 06:30 Creatinine 3.43 mg/dL (0.70-1.30) H 02/15/24 06:30 Glucose 85 mg/dL (74-106) 02/15/24 06:30 TSH 2.630 uIU/mL (0.358-3.740) 02/15/24 06:30 COAG PT 18.0 SECONDS (11.7-14.9) H 02/15/24 06:30 Pre-Assessment Diagnosis/Proposed Procedure Planned Operative Procedure(s): Left hemiarthroplasty of the hip Anesthesia History 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 When Was Last Pacemaker Check QUESTION #4 FULL TEXT: You/Your Family Experience fever (hyperthermia) with Anesthesia Last Oral Intake Last Oral intake: Last Oral Intake NPO since Meds taken in AM with sips of water? 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 Female HX of Motion Sickness HX of N/V After Surgery Non-Smoker Duration of Surgery greater than 60 minutes Number of Risk Factors PONV Score Height & Weight Height & Weight: Anesthesia: Height & Weight Height 5 ft 10 in 02/15/24 00:55 Weight: 91.8 kg 02/15/24 14:40 Body Mass Index (BMI) 29.0 02/15/24 14:40 Respiratory Assessment Respiratory Assessment - assistant professor of archaeology: Respiratory Tract Infection Hx - assistant professor of archaeology Hx Respiratory Tract Infection No 02/15/24 14:09 STOP Sleep Apnea STOP Sleep Apnea - assistant professor of archaeology: STOP Sleep Apnea - assistant professor of archaeology Hx Hypertension Yes 02/15/24 00:55 Hx Sleep Apnea No 02/15/24 00:55 CPAP No 12/25/23 12:47 BIPAP No 12/04/23 11:07 Do you snore loudly (louder No 02/15/24 00:55 than talking or can be heard Do you often feel tired/ No 02/15/24 00:55 fatigued/ sleepy during daytime? Has anyone observed you stop No 02/15/24 00:55 breathing during sleep? STOP Results Negative 02/15/24 00:55 QUESTION #5 FULL TEXT : Do you snore loudly (louder than talking or can be heard through closed doors)? 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 Specify any problems Hx of Preganancy in last 3 N/A 02/15/24 00:55 Months Nurse Filling Out Transfusion ASTOUDT 02/15/24 00:55 & Questions: Date: 02/15/24 02/15/24 00:55 Time: 01:02 02/15/24 00:55 Patient unable to answer at this time (ie. 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 INHALATION Q2H PRN PRN SOB &/OR WHEEZING Atorvastatin Calcium 80 mg 02/15/24 22:00 Atorvastatin Calcium 80 Mg Tablet PO QHS JIGNA Ezetimibe 10 mg 02/15/24 10:00 02/15/24 10:43 Ezetimibe 10 Mg Tablet PO Not Given DAILY [facility] Ferrous Sulfate 325 mg 02/15/24 08:00 02/15/24 10:42 Ferrous Sulfate 325 Mg [facility] Fluticasone Propionate 1 spray 02/15/24 10:00 02/15/24 10:42 Fluticasone 0.05% 1 [place] Nasal.Sry NASAL Not Given DAILY [facility] Hemodialysis Solution 6 bag 02/15/24 10:45 02/15/24 13:48 Pureflow B 2k Dialysis Soln 1 Bag PF 02/15/24 22:40 6 bag UD [facility] Administration Protocol Heparin Sodium (Porcine) 1,000 - 3,000 units 02/15/24 10:39 02/15/24 13:49 Heparin 10,000 Units/10 Ml Vial IV 02/15/24 22:39 1,900 units X1 PRN Administration HD catheter closing Sodium Chloride 500 mls @ 15 mls/hr 02/15/24 01:10 IV .[id number] PRN Saline Flush Sodium Chloride 500 mls @ 15 mls/hr 02/15/24 01:10 IV .[id number] PRN Additional IVPB Infusion Cefazolin Sodium 2 gm/ N/A 20 mls @ 400 mls/hr 02/15/24 16:00 IV 02/15/24 16:02 X1 ONE Melatonin 3 mg 02/15/24 00:55 Melatonin 3 Mg Tablet PO QHS PRN PRN Insomnia Metoprolol Tartrate 25 mg 02/15/24 10:00 02/15/24 10:42 Metoprolol Tartrate 25 Mg Tablet PO Not Given BID [facility] Protocol Morphine Sulfate 2 mg 02/15/24 00:55 Morphine 2 Mg/Ml Syringe IV Q4H PRN PRN Pain Score 6-10 Nitroglycerin 0.4 mg 02/15/24 00:55 Nitroglycerin (Inpatient Use) 0.4 Mg Tab.Subl SL Q5M PRN angina Ondansetron HCl 4 mg 02/15/24 00:55 Ondansetron Odt 4 Mg Tablet PO Q8H PRN PRN nausea and vomiting Ondansetron HCl 4 mg 02/15/24 00:55 Ondansetron 4 Mg/2 Ml Vial IV Q8H PRN PRN NAUSEA/VOMITING Pantoprazole Sodium 40 mg 02/15/24 10:00 02/15/24 10:43 Pantoprazole Sodium 40 Mg Tablet PO Not Given BID JIGNA Polyethylene Glycol 17 gm 02/15/24 00:55 Polyethylene Glycol 3350 17 Gm Packet PO DAILY PRN constipation Sodium Chloride 10 - 40 ml 02/15/24 01:10 02/15/24 13:49 0.9% Saline Lock 10 Ml Syringe IV 20 ml UD PRN Administration SALINE FLUSH Sodium Chloride 1,000 ml 02/15/24 10:40 02/15/24 13:48 0.9% Normal Saline 1,000 Ml Iv.Soln. OPERA.SITE 02/15/24 22:39 1,000 ml X1 JIGNA Administration Sodium Chloride 200 ml 02/15/24 10:39 0.9% Normal Saline 1,000 Ml Iv.Soln. IV 02/15/24 22:39 X1 PRN to maintain SBP >90mmHg during Dialysis [facility] Medical History Wears glasses Cancer Cancer Pressure ulcer History of renal dialysis History of renal disease Injury of back History of GI bleed Gastric reflux Shortness of breath on exertion History of stress test History of echocardiogram Cardiology follow-up encounter Thrombus of venous dialysis catheter ESRD (end stage renal disease) on dialysis Acute respiratory insufficiency Medical non-compliance Acute exacerbation of chronic heart failure Chronic kidney disease (CKD) Pleural effusion Dyspnea Acute kidney injury Adenocarcinoma of esophagus LEELA (acute kidney injury) Non-smoker Esophageal carcinoma Atherosclerosis of coronary artery of [place] heart without angina pectoris 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 Essential (primary) hypertension Non-rheumatic aortic stenosis Syncope and collapse Hyperlipidemia Atherosclerotic heart disease of [place] coronary artery with other forms of angina pectoris Encounter for long-term current use of high risk medication abnormal stress test Angina pectoris Exertional chest pain URI (upper respiratory infection) Home Medications ?Medication ?Instructions ?Recorded ?Last Taken ?Type atorvastatin 80 mg tablet 80 mg PO QHS CHOLESTEROL #90 tabs 05/15/22 12/24/23 Rx ezetimibe 10 mg tablet 10 mg PO DAILY CHOLESTEROL #90 tabs 05/15/22 12/24/23 Rx acetaminophen 325 mg tablet 650 mg (2 x 325 mg) PO Q6H PRN PRN 10/25/23 Unknown Rx Pain 1-10 Or Fever >100.7 #0 tabs melatonin 3 mg tablet 3 mg PO QHS PRN PRN Insomnia #0 10/25/23 12/24/23 Rx tabs metoprolol tartrate 25 mg tablet 25 mg PO BID #0 tabs 10/25/23 12/24/23 Rx pantoprazole 40 mg tablet,delayed 40 mg PO BID #0 tabs 10/25/23 12/24/23 Rx release ferrous sulfate 325 mg (65 mg 325 mg PO DAILY #90 tabs 11/20/23 12/24/23 Rx iron) tablet polyethylene glycol 3350 17 17 g PO DAILY PRN constipation 12/04/23 Unknown History gram/dose oral powder (Miralax) ondansetron 4 mg disintegrating 4 mg PO Q8H PRN PRN nausea and 12/25/23 12/25/23 08:00 History tablet vomiting fluticasone propionate 50 1 spray intranasal DAILY 02/14/24 Unknown History mcg/actuation nasal spray,suspension nitroglycerin 0.4 mg sublingual 0.4 mg sublingual PRN PRN angina 02/14/24 Unknown History tablet Allergy/AdvReac Type Severity Reaction Status Date / Time No Known Allergies Allergy Verified 02/14/24 18:09 Family History Father Heart disease Myocardial infarction Hypertension Brother Hypertension Sister Heart disease Myocardial infarction Surgical History History of cardiac catheterization History of esophagogastroduodenoscopy (EGD) Hx of surgical procedure History of aortic valve replacement (03/03/19) History of coronary artery stent placement (12/31/18) H/O coronary artery bypass surgery (09/18/02) History of tonsillectomy History of hernia repair Social History Smoking Status: Never smoker alcohol intake: never substance use type: does not use caffeine: No what type of physical activity do you participate in: walking frequency: daily Review of Systems (Anesthesia) ROS Narrative System reviewed and no additional complaints, except as documented.
--- NOTE | 2024-02-15 15:07 | CHAPLAIN ---
Type of Pastoral Visit _x__ Initial Visit ___ Follow-up Visit ___ On-call Visit ___ General Patient Visit ___ Spiritual Assessment ___ Family Conference ___ Bereavement ___ Rapid Response ___ Code Blue ___ Other (describe below) Pastoral Care Referral From _x__ Patient ___ Family ___ Nurse ___ Physician ___ Development Director ___ Sport Intern ___ Other (describe below) Sacrament/Intervention _x__ Active listening ___ Anointing ___ Faith ___ Bereavement ___ Communion _x__ Lynne exploration ___ _x__ Life review _x__ Prayer ___ Reconciliation ___ Sacrament of Sick _x__ Supportive presence ___ Wedding ___ Other (describe below) Pastoral Comments patient has been seen in previous admissions; pt gives update on his health; pt is to have surgery and he is welcoming of prayer; pt is hopeful about surgery but states It is in God's hands; pt also reports on how God has met him through the help of his community and much kindness 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
[2024-02-15] MEDS: 0.9% Normal Saline (500mL Bag) 500 ML 15 ML IV (15:32)
[2024-02-15] MEDS: Metoprolol Tartrate 25 MG Tablet PO ×2 (15:32→20:58)
--- NOTE | 2024-02-15 16:00 | HIP_PTH ---
PATIENT: NICKO ROSALES LOC: [facility] U#:[id number] AGE/SX: 68/M ROOM: [facility] RE02/15/[address]: Dr. Gayatri Roy DO : 1955 BED: 1 DIS: 02/17/2024 SPEC #: [id number] RECD: 02/18/24 08:51 STATUS: RICKY REQ #: [id number] KIM: 02/15/24 16:[address]: Jerod Marc DEPT: SURGICAL PATHOLOGY RECD BY: Cecily Forrester ENTERED: 02/18/24 10:46 SP TYPE: TOTAL HIP OTHR DR: DO Dr. Gurpreet Jones MD Dr. Jeffrey Burkey, MD Dr. Jayaprakas Dasari, MD Dr. Kathryn Lee, DO Tissues: Hip, NOS Procedures: Decalcification bone/plaque Surgery Specimen Level IV HEADER OPERATION: Hemiarthroplasty, hip PRE-OP DIAGNOSIS: Left hip fracture TISSUE SUBMITTED: Bone and tissue left hip MICROSCOPIC DIAGNOSIS Bone and tissue of left hip, total hip resection: Organizing fracture callus. AM: 02/21/2024 MICROSCOPIC DESCRIPTION Slides are reviewed. GROSS DESCRIPTION Received is one container labeled with the patient's name and designated femoral head and tissue. The specimen consists of a fitzgerald femoral head measuring 5.0 x 5.0 x 4.5 cm. The articular surface is smooth. Resection margin is irregular and hemorrhagic. Also present in the specimen container are multiple detached pieces of bone measuring in aggregate 5.5 x 5.0 x 1.6 cm. Also present in the container is a piece of soft tissue is noted attached to the femoral head measuring 2.5 x 1.0 x 0.4 cm. [employer] Loft Worker sections are submitted in three cassettes as follows: 1 - soft tissue, entirely submitted, 2 - detached pieces of bone after decalcification, 3 - femoral head after decalcification. / JUSTINE. 02/18/2024 TC:5 CPT: 72507, 10677
--- NOTE | 2024-02-15 16:05 | CONS.ORTHO ---
HPI Consult Data Date of Consult: 02/15/24 HPI Narrative Reason for Consultation: Left hip pain HPI Narrative: NICKO ROSALES, is a 68 M with history of renal failure and has been on dialysis since October. Also has a history of coronary artery disease. Who presents left hip pain. Patient notes he was trying to get his wheelchair out of his vehicle when he lost his balance and slammed up against his door with his left hip. He did not fall directly to the ground. This injury occurred on 02/11/2020 4 in the evening. He walked on it for a day and a half and then began had progressively worse pain in his groin and thigh. He has some numbness over the anterior thigh. No numbness extending down his leg. Due to increased pain and difficulty with ambulation he presented to Emergency Department. Emergency department found to have a subcapital femoral neck fracture. He was admitted for surgery overnight. He was seen by cardiology and nephrology and cleared for surgery throughout the day today. Patient reports 5 out of 10 pain with motion better with immobilization. Unable to bear weight. He lives at home with his in a 1000 square foot area prepared for him and his attached to his daughter's home. They do their own cooking cleaning and ADLs. Patient denies any antecedent hip pain. Patient denies a history of DVTs. [facility] Medical History Wears glasses Cancer Cancer Pressure ulcer History of renal dialysis History of renal disease Injury of back History of GI bleed Gastric reflux Shortness of breath on exertion History of stress test History of echocardiogram Cardiology follow-up encounter Thrombus of venous dialysis catheter ESRD (end stage renal disease) on dialysis Acute respiratory insufficiency Medical non-compliance Acute exacerbation of chronic heart failure Chronic kidney disease (CKD) Pleural effusion Dyspnea Acute kidney injury Adenocarcinoma of esophagus LEELA (acute kidney injury) Non-smoker Esophageal carcinoma Atherosclerosis of coronary artery of [place] heart without angina pectoris 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 Essential (primary) hypertension Non-rheumatic aortic stenosis Syncope and collapse Hyperlipidemia Atherosclerotic heart disease of [place] coronary artery with other forms of angina pectoris Encounter for long-term current use of high risk medication abnormal stress test Angina pectoris Exertional chest pain URI (upper respiratory infection) Home Medications ?Medication ?Instructions ?Recorded ?Last Taken ?Type atorvastatin 80 mg tablet 80 mg PO QHS CHOLESTEROL #90 tabs 05/15/22 12/24/23 Rx ezetimibe 10 mg tablet 10 mg PO DAILY CHOLESTEROL #90 tabs 05/15/22 12/24/23 Rx acetaminophen 325 mg tablet 650 mg (2 x 325 mg) PO Q6H PRN PRN 10/25/23 Unknown Rx Pain 1-10 Or Fever >100.7 #0 tabs melatonin 3 mg tablet 3 mg PO QHS PRN PRN Insomnia #0 10/25/23 12/24/23 Rx tabs metoprolol tartrate 25 mg tablet 25 mg PO BID #0 tabs 10/25/23 12/24/23 Rx pantoprazole 40 mg tablet,delayed 40 mg PO BID #0 tabs 10/25/23 12/24/23 Rx release ferrous sulfate 325 mg (65 mg 325 mg PO DAILY #90 tabs 11/20/23 12/24/23 Rx iron) tablet polyethylene glycol 3350 17 17 g PO DAILY PRN constipation 12/04/23 Unknown History gram/dose oral powder (Miralax) ondansetron 4 mg disintegrating 4 mg PO Q8H PRN PRN nausea and 12/25/23 12/25/23 08:00 History tablet vomiting fluticasone propionate 50 1 spray intranasal DAILY 02/14/24 Unknown History mcg/actuation nasal spray,suspension nitroglycerin 0.4 mg sublingual 0.4 mg sublingual PRN PRN angina 02/14/24 Unknown History tablet Allergy/AdvReac Type Severity Reaction Status Date / Time No Known Allergies Allergy Verified 02/15/24 15:32 Family History Father Heart disease Myocardial infarction Hypertension Brother Hypertension Sister Heart disease Myocardial infarction Surgical History History of cardiac catheterization History of esophagogastroduodenoscopy (EGD) Hx of surgical procedure History of aortic valve replacement (03/03/19) History of coronary artery stent placement (12/31/18) H/O coronary artery bypass surgery (09/18/02) History of tonsillectomy History of hernia repair Social History Smoking Status: Never smoker alcohol intake: never substance use type: does not use caffeine: No what type of physical activity do you participate in: walking frequency: daily ROS ROS Narrative Negative outside was mentioned in the HPI Vital Signs Vital Signs Vital Signs: 02/14/24 18:09 02/14/24 22:08 02/14/24 23:37 Temperature 98 F 98 F Temperature Source Temporal Pulse Rate 96 82 101 H Respiratory Rate 15 17 18 Respiratory Effort Respiratory Depth Respiratory Pattern Blood Pressure 117/77 147/94 H 147/94 H Blood Pressure Mean 90 111 111 Blood Pressure Source Blood Pressure Position Blood Pressure Location Pulse Ox 98 96 95 Oxygen Delivery Method Room Air Room Air 02/15/24 00:55 02/15/24 00:55 02/15/24 06:00 Temperature 97.2 F L 97.4 F L Temperature Source Temporal Temporal Pulse Rate 88 86 81 Respiratory Rate 18 18 Respiratory Effort Respiratory Depth Respiratory Pattern Blood Pressure 149/82 H 143/86 H Blood Pressure Mean 104 105 Blood Pressure Source Monitor Monitor Blood Pressure Position Semi-Fowlers Semi-Fowlers Blood Pressure Location Left Arm Left Arm Pulse Ox 98 98 Oxygen Delivery Method Room Air Room Air 02/15/24 06:17 02/15/24 08:35 02/15/24 08:55 Temperature 97.9 F Temperature Source Oral Pulse Rate 81 74 Respiratory Rate 16 Respiratory Effort Respiratory Depth Respiratory Pattern Blood Pressure 142/81 H Blood Pressure Mean 101 Blood Pressure Source Monitor Blood Pressure Position Semi-Fowlers Blood Pressure Location Right Arm Pulse Ox 95 94 Oxygen Delivery Method Room Air Room Air 02/15/24 11:41 02/15/24 12:00 02/15/24 12:30 Temperature 96.8 F L Temperature Source Oral Pulse Rate 81 79 82 Respiratory Rate 18 16 16 Respiratory Effort Normal Respiratory Depth Normal Respiratory Pattern Normal Blood Pressure 153/94 H 166/101 H 152/60 H Blood Pressure Mean 113 122 90 Blood Pressure Source Monitor Monitor Monitor Blood Pressure Position Semi-Fowlers Semi-Fowlers Semi-Fowlers Blood Pressure Location Right Arm Right Arm Right Arm Pulse Ox 98 99 100 Oxygen Delivery Method Room Air Room Air Room Air 02/15/24 13:00 02/15/24 13:30 02/15/24 14:00 Temperature Temperature Source Pulse Rate 85 71 84 Respiratory Rate 16 16 16 Respiratory Effort Respiratory Depth Respiratory Pattern Blood Pressure 155/91 H 155/82 H 140/92 H Blood Pressure Mean 112 106 108 Blood Pressure Source Monitor Monitor Monitor Blood Pressure Position Semi-Fowlers Supine Semi-Fowlers Blood Pressure Location Right Arm Right Arm Right Arm Pulse Ox 100 100 100 Oxygen Delivery Method Room Air Room Air Room Air 02/15/24 14:25 02/15/24 14:40 02/15/24 15:13 Temperature 96.4 F L 96.4 F L Temperature Source Oral Pulse Rate 79 68 68 Respiratory Rate 16 16 16 Respiratory Effort Respiratory Depth Respiratory Pattern Blood Pressure 161/86 H 139/100 H 139/100 H Blood Pressure Mean 111 113 Blood Pressure Source Monitor Monitor Blood Pressure Position Semi-Fowlers Semi-Fowlers Blood Pressure Location Right Arm Right Arm Pulse Ox 100 100 100 Oxygen Delivery Method Room Air Room Air Room Air 02/15/24 15:32 Temperature Temperature Source Pulse Rate 79 Respiratory Rate Respiratory Effort Respiratory Depth Respiratory Pattern Blood Pressure 151/109 H Blood Pressure Mean Blood Pressure Source Blood Pressure Position Blood Pressure Location Pulse Ox Oxygen Delivery Method Weight Weight: 206 lb 12.8 oz Body Mass Index (BMI) 29.0 Physical Exam Const alert, oriented x3 and no apparent distress HEENT normocephalic Eyes PERRL Neck no JVD Resp normal respiratory effort Cardio Cardio Narrative: Regular pulse rate GI non-distended Extremity Extremity Narrative: Left lower extremity: Skin clean, dry, and intact. Limb is shortened and externally rotated Motor is intact dorsiflexion, EHL and plantar flexion. Sensation is intact to light touch saphenous, queenie,l superficial peroneal, deep peroneal and tibial distributions. Calves are soft and supple. Skin Skin Narrative: Patient does have multiple areas of renal skin changes. Neuro CN's II-XII intact bilaterally Psych affect normal Medical Records Data Attestation: I reviewed the patient's medical records Lab / Micro Data Attestation: I reviewed the patient's lab results. 02/15/24 06:30 02/15/24 06:30 Labs: Laboratory Results - last 24 hr 02/14/24 23:30: WBC 5.6, RBC 4.49 L, Hgb 12.5 L, Hct 41.8, MCV 93.1, MCH 27.8, MCHC 29.9 L, RDW Std Deviation 64.3 H, RDW Coeff of Marcos 19.8 H, Plt Count 127 L, MPV 9.6, Immature Gran % (Auto) 0.500, Neut % (Auto) 71.6 H, Lymph % (Auto) 16.8 L, Mclennan % (Auto) 8.6, Eos % (Auto) 1.4, Baso % (Auto) 1.1 H, Absolute Neuts (auto) 4.0, Absolute Lymphs (auto) 0.94, Nucleated RBC % 0, PT 15.5 H, INR 1.2, APTT 29.0, Sodium 137, Potassium 4.3, Chloride 101, Carbon Dioxide 31.0, Anion Gap 4 L, BUN 32 H, Creatinine 3.36 H, Est GFR (MDRD) Af Amer 24 L, Est GFR (MDRD) Non-Af 19 L, BUN/Creatinine Ratio 9.5 L, Glucose 111 H, Calcium 8.7, Total Bilirubin 0.60, AST 20, ALT 45, Alkaline Phosphatase 112, Total Protein 7.1, Albumin 2.6 L, Globulin 4.5 H, Albumin/Globulin Ratio 0.6 L 02/15/24 06:30: WBC 4.9, RBC 4.39 L, Hgb 12.3 L, Hct 40.6, MCV 92.5, MCH 28.0, MCHC 30.3 L, RDW Std Deviation 62.8 H, RDW Coeff of Marcos 19.5 H, Plt Count 120 L, MPV 9.6, Immature Gran % (Auto) 0.400, Neut % (Auto) 76.5 H, Lymph % (Auto) 12.7 L, Mclennan % (Auto) 8.6, Eos % (Auto) 1.0, Baso % (Auto) 0.8, Absolute Neuts (auto) 3.7, Absolute Lymphs (auto) 0.62 L, Nucleated RBC % 0, PT 18.0 H, INR 1.5, APTT 32.2, Sodium 139, Potassium 4.4, Chloride 104, Carbon Dioxide 28.0, Anion Gap 7, BUN 34 H, Creatinine 3.43 H, Estim Creat Clear Calc 23.15, Est GFR (MDRD) Af Amer 23 L, Est GFR (MDRD) Non-Af 19 L, BUN/Creatinine Ratio 9.9 L, Glucose 85, Calcium 8.3 L, Phosphorus 4.9, Magnesium 2.2, Total Bilirubin 0.50 02/15/24 06:30: Total Bilirubin 0.60, Direct Bilirubin 0.21, AST 16 02/15/24 06:30: AST 15, ALT 38 02/15/24 06:30: ALT 37, Alkaline Phosphatase 108 02/15/24 06:30: Alkaline Phosphatase 105, Total Protein 5.8 L 02/15/24 06:30: Total Protein 6.3 L, Albumin 2.4 L 02/15/24 06:30: Albumin 2.4 L, Globulin 3.4 02/15/24 06:30: Globulin 3.9, Albumin/Globulin Ratio 0.7 L, TSH 2.630, Blood Type A POSITIVE, Antibody Screen NEGATIVE Imaging Radiology Impression Hip/Pelvis X-Ray 02/14/24 20:50 IMPRESSION: 1. Mildly impacted LEFT femoral subcapital fracture. Joint space maintained. 2. No other fracture noted. 3. Pelvic ring is intact. 4. Postoperative changes of prior anterior abdominal wall repair. Residual contrast within multiple diverticula noted Electronically Signed: Rios Jack MD at 22:32 EST , Left hip x-ray was independently reviewed. Patient does have a impacted subcapital femoral neck fracture. Joint spaces maintained on the hip itself. Chest CT 02/15/24 00:24 IMPRESSION: 1. No significant pericardial effusion. 2. Bilateral pleural effusions with mild decrease in size of the left pleural effusion and minimal decrease in size of the right pleural effusion since 11/14/2023. Adjacent compressive atelectasis. 3. Findings of partial esophagectomy and gastric pull-up procedure again noted. Electronically Signed: Davion Marley MD at 2:08 EST , Echocardiogram 02/15/24 01:41 Interpretation Summary The estimated ejection fraction is 60 %. Stage 1 diastolic dysfunction. Mild assymetric septal hypertrophy. Moderate mitral annular calcification. Mild (1+) mitral valve insufficiency. Stable appearing bioprosthetic aortic valve apparatus. The study was technically difficult. Contrast injection was performed. Ordering Physician: Jesus Manuel Huerta Performed By: Robert Tyson RCS Assessment & Plan Assessment/Plan (1) Subcapital fracture of left hip: PLAN: Natural history of the disease process and treatment options were discussed the patient. We discussed nonoperative treatment versus closed duction percutaneous pinning versus partial placement versus total placement. Ultimately, after review of all the treatment options I did not recommend nonoperative treatment. I also felt the patient had high probability based on his medical history and renal failure as well as available fracture pattern of nonunion malunion avascular necrosis when treated with pose reduction percutaneous pinning and the patient also had good residual joint space. Based on this I recommended a partial replacement as appropriate treatment option. Risk of surgery included but were not limited to blood loss, DVTs, PEs, neurovascular damage, infection, the risk of anesthesia including loss of life. We discussed lately discrepancies, instability of fractures associated during surgery and postoperatively that could occur. Patient demonstrated understanding was able to sign informed consent and wished to proceed with surgical intervention. Antibiotics on-call to the operating room. Patient is cleared by by primary service. Been seen by cardiology and renal service. Will proceed with surgery this evening. (2) ESRD (end stage renal disease) on dialysis: PLAN: I did discuss specifically with the patient how this impairs health resulting in wound healing complications and fracture complications and infection
[2024-02-15] MEDS: Cefazolin 2 GM in Syringe IV (16:16)
--- NOTE | 2024-02-15 17:00 | RAD_ITS ---
Exam: XR Hip Unilateral with Pelvis when performed; intraprocedural exam. Comparison: Subsequent 3 views of the left hip, postoperative, and prior 3 views of the left hip February 09, 2024 showing oblique left femoral neck fracture with slight external rotation of the head. History: ANTERIOR HIP TECHNIQUE: 6 fluoroscopic spot views. FINDINGS: Well-positioned left femoral head-neck prosthesis and well-positioned intramedullary component. Mildly widened and minimally shallow left acetabulum. RAD/Hip Min 2 Views (Portable) IMPRESSION: Intraprocedural views. Electronically Signed: Maegan Gamble MD at 2:43 EST ,
[2024-02-15] MEDS: TXA 1000mg in NS100 100ml (IVPB at Incision) 660 MG IV (17:04)
[2024-02-15] MEDS: TXA 1000mg in NS100 100ml (IVPB at Closure) 660 MG IV (17:06)
--- NOTE | 2024-02-15 17:30 | PCM.OPRPT ---
Operative Report (Standard) Operative Information Surgery/Procedure Performed: Left hip hemiarthroplasty Surgeon: Jerod Marc Date of Procedure: 02/15/24 Procedure Start Time: 16:32 Procedure Stop Time: 17:50 Pre-Operative Diagnosis: Left subcapital femoral neck fracture Post-Operative Diagnosis: Left subcapital femoral neck fracture Select all DRAINS/GRAFTS/IMPLANTS that apply: Prosthetic device Prosthetic device details: 1. Aly insignia high offset size 6 femoral stem 2. Aly cobalt-chromium Unitrax femoral head 50 mm with standard sleeve Type of Anesthesia: General Special Medications: 2 g Ancef, 2 g TXA lavage prior to closure, , joint cocktail (5 mg Duramorph, 30 mL of 0.5% Ropivicaine, 1000 units of epinephrine, 30 mg of Toradol) Estimated Blood Loss: 300 Fluids Replaced: 500 mL crystalloid Specimen collected: Yes Description of specimen(s) removed: Left femoral head Description of surgery: Procedure: On the date of procedure the patient's L hip was marked in the preoperative area. Patient was then taken back to the operating room where anesthesia assumed control of the C-spine and airway and administered anesthetic. Patient was transferred to the operating table and placed in the supine position. The hips were placed the break of the bed and a bump was placed in the sacrum. The L lower extremity was then prepped out in a sterile fashion using chlorhexidine while the surgeon scrubbed. Upon reentering the room the L lower extremity was draped in the standard orthopedic fashion and the incision was marked. A timeout was called and everyone agreed upon the side, the site, the procedure be performed, antibody given, and patient's identity. At this time incision was made through skin, subcutaneous tissue, and fat down to fascia. The fascia was then incised and the TFL was retracted laterally. A retractor was placed on the lateral border of the femoral neck. Attention was directed to the inferior portion of the approach and all crossing vessels were identified and appropriately coagulated. A retractor was then placed on the medial portion of the femoral neck. The anterior capsule was then cleared of all soft tissue and then H shaped capsulotomy was made. The retractors were then placed inside the capsule. The femoral neck was identified and a cleanup cut was made. At this time a power corkscrew was used to remove the femoral head. The femoral head was measures and a 50 mm bipolar component was selected. Soft tissue releases on the medial and lateral femoral neck were appropriately done, the leg was externally rotated and lateralized. A Gonzalez retractor was placed medially and proximally to the greater trochanter this allowed appropriate visualization and exposure of the femoral canal. Rongeour was then used to remove excess lateral bone. A canal finder and entry broach were used to open the proximal canal. Once we verified we were down the femoral canal we subsequently broached up to a size 6 femur. The appropriate neck was placed in the previously selected head was trialed with a 0mm neck. Traction was pulled and the hip was reduced with internal rotation. Once it was appropriately reduced and stability was checked. There was minimal shuck, equal leg lengths and appropriate stability with hyperextension and external rotation as well as with 90? flexion and internal rotation. The trial components were then dislocated the proximal femur was again exposed and the components were removed from the wound. The final components were verified and opened. The wound was copiously irrigated out with normal saline. The acetabulum was checked for any residual debris. The final components were placed and impacted. Traction and internal rotation were again used to reduce the hip. After adequate reduction the hip remained stable with appropriate leg lengths. The wound was then copiously irrigated with normal saline once more, and hemostasis was obtained. Closure was then done using #1 Vicryl runner to close the fascia. A 2-0 Vicryl runner was used to close the subcutaneous skin. A 2-0 nylon sutures were used for final skin closure. A Silverlon dressing was placed. Patient was awakened by anesthesia and transferred to the [facility]. Patient was then transferred to the PACU for recovery. Postoperative plan: Patient will get 24 hours postop antibiotics. Patient will get in-house physical therapy and will be weight-bear as tolerated. Patient will follow up in office in 2 weeks for a wound check and x-rays. Aspirin 81 mg p.o. 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
[2024-02-15] MEDS: JPS (Morphine 10mg/ml) OPERA.SITE (17:31)
--- NOTE | 2024-02-15 17:35 | RAD_ITS ---
EXAM: XR LEFT HIP WITH PELVIS WHEN PERFORMED, 2 OR 3 VIEWS CLINICAL INDICATION: Post Op -- AP both hips on single gissell/lateral of op hip PACU TECHNIQUE: 1 view of the left hip, 2 views of the pelvis, 1 mildly rotated to the left. COMPARISON: February 14, 2024 preop exam. FINDINGS: BONES/JOINTS: Mildly widened qawalangin left acetabulum, left femoral head prosthesis appears adequately positioned. The pelvis appears to be demineralized. SOFT TISSUES: Mild soft tissue swelling and slight scattered gas. RAD/Hip Min 2 Views (Portable) IMPRESSION: Well-positioned left femoral head prosthesis. Postop soft tissue changes. Electronically Signed: Maegan Gamble MD at 19:09 EST ,
--- NOTE | 2024-02-15 18:07 | PCM.POST.ANE ---
Anesthesia: Postop Eval I Current Vital Signs Temperature: 98.6 F Pulse Rate: 118 Blood Pressure: 114/73 Respiratory Rate: 16 Pulse Ox: 95 Assessment Airway patent: Yes Spontaneous unlabored respirations: Yes nausea: No Vomiting: No Anesthesia Complication: No Fluid Hydration Crystalloid volume administer (ml): 300 Total IV fluid infused: 300 Progress Note Anesthesia document: Postop Eval 1 completed: Yes
--- NOTE | 2024-02-15 18:08 | PCM.POSTANE2 ---
Anesthesia Postop Eval I Sum Postop Eval Completion status Anesthesia document: Postop Eval 1 completed: Yes Anesthesia Postop Eval I Summary Anesthesia Postop Eval I Summary: Anesthesia Postop Eval I: Assessment Summary Airway patent Yes 02/15/24 18:08 Spontaneous unlabored Yes 02/15/24 18:08 respirations Mental status nausea No 02/15/24 18:08 Vomiting No 02/15/24 18:08 Anesthesia Postop Eval I: Fluid Summary Crystalloid volume administer 300 02/15/24 18:08 (ml) Colloids volume administered ( ml) Blood Product volume administered (ml) Total IV fluid infused 300 02/15/24 18:08 Anesthesia Postop Eval I: Summary Notes Anesthesia Complication No 02/15/24 18:08 Anesthesia Complication Comment: Post-operative progress note Anesthesia: Postop Eval II Evaluation Mental status: Awake Pain Level: 1 nausea: No Vomiting: No Complications Anesthesia Complication: No
[2024-02-15] MEDS: Aspirin 81 MG TAB.CHEW PO (20:57)
[2024-02-15] MEDS: Pantoprazole Sodium 40 MG Tablet PO (20:58)
[2024-02-15] MEDS: Acetaminophen 500 MG Tablet 1000 MG PO (20:58)
[2024-02-15] MEDS: Atorvastatin Calcium 80 MG Tablet PO (20:58)
[2024-02-16] VITALS (8 sets, daily range): BP systolic 94–119; BP diastolic 58–82; PULSE 69–92; RESP 16–18; TEMP 36.7–37.2; O2SAT 94–97; BMI 31.7
[2024-02-16] MEDS: Cefazolin 1 GM/50 ML BAG IV ×2 (00:53→08:15)
[2024-02-16] MEDS: Acetaminophen 500 MG Tablet 1000 MG PO ×3 (06:14→21:06)
[2024-02-16 07:01] LABS: Hematocrit 38.8 % (40-54); Hemoglobin 11.5 g/dL (13.0-16.5); Mean Corp Hgb Conc 29.6 g/dL (32-36); Mean Corpuscular Hgb 27.8 pg (27.0-32.0); Mean Corpuscular Volume 93.9 fL (80-94); Platelet Count 110 K/mm3 (150-450); RBC Distribution Width CV 19.1 % (11.6-14.6); Red Blood Count 4.13 M/mm3 (4.6-6.2); White Blood Count 8.6 K/mm3 (4.4-11.0)
[2024-02-16 07:27] LABS: Anion Gap 7 (5-15); BUN 32 mg/dL (7-18); BUN/Creat Ratio 10.3 RATIO (10-20); Calcium,Total 8.2 mg/dL (8.5-10.1); Chloride 106 mmol/L (98-107); EST Glomerular Filtration Rate 21 mL/min (>60); Est Glom Filt Rate - Afr Amer 26 mL/min (>60); Estimated Creatinine Clearance 26.69 ml/min; Glucose 74 mg/dL (74-106); Potassium 5.1 mmol/L (3.5-5.1); Sodium Level 136 mmol/L (136-145)
[2024-02-16] MEDS: Pantoprazole Sodium 40 MG Tablet PO ×2 (08:18→21:06)
[2024-02-16] MEDS: 0.9% Saline Lock 10 ML Syringe IV (08:18)
[2024-02-16] MEDS: Ferrous Sulfate 325 MG Tablet PO (08:19)
[2024-02-16] MEDS: Ezetimibe 10 MG Tablet PO (08:19)
[2024-02-16] MEDS: Metoprolol Tartrate 25 MG Tablet PO (08:19)
[2024-02-16] MEDS: Aspirin 81 MG TAB.CHEW PO ×2 (08:20→21:06)
--- NOTE | 2024-02-16 10:55 | PCM.PN.ORT ---
Subjective Subjective Patient is doing well this morning. 68-year-old male status post left hip hemiarthroplasty yesterday. Patient is comfortable with minimal pain. Primarily taking Tylenol for pain. Did well overnight. Vital signs are stable. Patient is on room air. No chest pain or shortness of breath. Notify discomfort. Associated numbness and tingling distally. Objective Data Objective Data Vital Signs: Vital Signs Temp Pulse Resp BP Pulse Ox O2 Del Method O2 Flow Rate 98.3 F 92 16 116/79 95 Room Air 4 02/16/24 09:30 02/16/24 09:30 02/16/24 09:30 02/16/24 09:30 02/16/24 09:30 02/16/24 10:00 02/15/24 23:25 Oxygen Flow Rate (L/min) 4 Oxygen Delivery Method Room Air Weight: 221 lb 1.978 oz Body Mass Index (BMI) 31.7 Intake & Output: Intake and Output for Last 24 Hours 02/14/24 02/15/24 02/16/24 23:59 23:59 23:59 Intake Total 240 / 490 741.75 / 741.75 Output Total 2160 / 2260 300 / 300 Balance -1920 / -1770 441.75 / 441.75 Lab / Micro Data 02/16/24 06:23 02/16/24 06:23 Labs: Laboratory Results - last 24 hr 02/15/24 06:30: Sodium 139, Potassium 4.4, Chloride 104, Carbon Dioxide 28.0, Anion Gap 7, BUN 34 H, Creatinine 3.43 H, Estim Creat Clear Calc 23.15, Est GFR (MDRD) Af Amer 23 L, Est GFR (MDRD) Non-Af 19 L, BUN/Creatinine Ratio 9.9 L, Glucose 85, Calcium 8.3 L, Phosphorus 4.9, Magnesium 2.2, Total Bilirubin 0.50, AST 16, ALT 38, Alkaline Phosphatase 108, Total Protein 5.8 L, Albumin 2.4 L, Globulin 3.4, Albumin/Globulin Ratio 0.7 L, TSH 2.630 02/16/24 06:23: WBC 8.6, RBC 4.13 L, Hgb 11.5 L, Hct 38.8 L, MCV 93.9, MCH 27.8, MCHC 29.6 L, RDW Std Deviation 64.0 H, RDW Coeff of Marcos 19.1 H, Plt Count 110 L, MPV 9.0, Sodium 136, Potassium 5.1, Chloride 106, Carbon Dioxide 23.0, Anion Gap 7, BUN 32 H, Creatinine 3.10 H, Estim Creat Clear Calc 26.69, Est GFR (MDRD) Af Amer 26 L, Est GFR (MDRD) Non-Af 21 L, BUN/Creatinine Ratio 10.3, Glucose 74, Calcium 8.2 L Radiography Diagnostic Testing: Radiology Impression Echocardiogram 02/15/24 01:41 Interpretation Summary The estimated ejection fraction is 60 %. Stage 1 diastolic dysfunction. Mild assymetric septal hypertrophy. Moderate mitral annular calcification. Mild (1+) mitral valve insufficiency. Stable appearing bioprosthetic aortic valve apparatus. The study was technically difficult. Contrast injection was performed. Ordering Physician: Jesus Manuel Huerta Performed By: Robert Tyson RCS Hip X-Ray 02/15/24 17:00 IMPRESSION: Intraprocedural views. Electronically Signed: Maegan Gamble MD at 2:43 EST Reading Location ID and State: [facility] / [place] Tel , Service support , Hip X-Ray 02/15/24 17:35 IMPRESSION: Well-positioned left femoral head prosthesis. Postop soft tissue changes. Electronically Signed: Maegan Gamble MD at 19:09 EST , Physical Exam Const alert, oriented x3 and no apparent distress General Appearance: cooperative Orientation / Consciousness: awake Resp normal respiratory effort Extremity Extremity Narrative: Left lower extremity: Dressing is clean dry and intact Sensations intact to light touch saphenous, sural, superficial peroneal, deep peroneal, and tibial distributions Motors intact EHL, DF, PF calves are soft and supple Assessment & Plan Assessment/Plan (1) Subcapital fracture of left hip: PLAN: Postop day 1 left hip hemiarthroplasty direct anterior approach 1. DVT prophylaxis: Patient has significant renal disease making direct oral anticoagulation medications difficult to dose due to renal clearance additionally, patient is not anticipated to have significant limitations in his mobility. I recommended aspirin 81 mg p.o. twice daily based on patient's risk profile. Patient denies and no medical history supports previous DVT or PE. Additionally, I discussed the patient importance of mobility when he is discharged from the hospital. Continue with SCDs on the hospital. 2. Pain control: Per primary service patient doing well with current regimen we recommend minimizing narcotics 3. Renal failure: Per primary service does affect outcomes of hip replacement including risk of infection and wound complications 4. Physical therapy: Weightbearing as tolerated, standard direct anterior hip replacement postoperative protocol 5. Disposition: Patient is doing well overall. Spoke with medicine team anticipate patient will go home with home health care. Does have some home care arranged already in relation to pre-existing medical conditions. Upon discharge patient should have follow-up with Royal [facility] PA-C in 2 weeks for wound check and radiograph check. Recommend beginning home physical therapy for mobilization and strengthening first available opportunity. Dressing as long as it stays clean and dry can be left in place for 5 days. He may remove dressing after 5 days if remains dry and continue to shower. May shower with current dressing. Would recommend considering appropriate nutrition supplementation for renal failure patient's upon discharge patient does have low albumin and evidence of malnutrition consistent with chronic renal disease. Patient is weightbearing as tolerated. Please call orthopedics for any further questions or concerns [facility] Office:
--- NOTE | 2024-02-16 12:15 | PN.HOSP_ITS ---
Reason for Visit Reason for Visit: Left hip pain Subjective Subjective Denies any current pain. Has not yet been up with therapy. Very hopeful that he will be able to go home. I did indicate with him if he is does well with therapy today we will send him home with home health tomorrow. He already has home health set up. Objective Data Objective Data Vital Signs: Vital Signs Temp Pulse Resp BP Pulse Ox O2 Del Method O2 Flow Rate 98.3 F 92 16 116/79 95 Room Air 4 02/16/24 09:30 02/16/24 09:30 02/16/24 09:30 02/16/24 09:30 02/16/24 09:30 02/16/24 10:00 02/15/24 23:25 Oxygen Flow Rate (L/min) 4 Oxygen Delivery Method Room Air Weight: 100.3 kg Body Mass Index (BMI) 31.7 Intake & Output: Intake and Output for Last 24 Hours 02/14/24 02/15/24 02/16/24 23:59 23:59 23:59 Intake Total 240 / 490 741.75 / 741.75 Output Total 2160 / 2260 300 / 300 Balance -1920 / -1770 441.75 / 441.75 Lab / Micro Data 02/16/24 06:23 02/16/24 06:23 Labs: Laboratory Results - last 24 hr 02/15/24 06:30: Sodium 139, Potassium 4.4, Chloride 104, Carbon Dioxide 28.0, Anion Gap 7, BUN 34 H, Creatinine 3.43 H, Estim Creat Clear Calc 23.15, Est GFR (MDRD) Af Amer 23 L, Est GFR (MDRD) Non-Af 19 L, BUN/Creatinine Ratio 9.9 L, Glucose 85, Calcium 8.3 L, Phosphorus 4.9, Magnesium 2.2, Total Bilirubin 0.50, AST 16, ALT 38, Alkaline Phosphatase 108, Total Protein 5.8 L, Albumin 2.4 L, Globulin 3.4, Albumin/Globulin Ratio 0.7 L, TSH 2.630 02/16/24 06:23: WBC 8.6, RBC 4.13 L, Hgb 11.5 L, Hct 38.8 L, MCV 93.9, MCH 27.8, MCHC 29.6 L, RDW Std Deviation 64.0 H, RDW Coeff of Marcos 19.1 H, Plt Count 110 L, MPV 9.0, Sodium 136, Potassium 5.1, Chloride 106, Carbon Dioxide 23.0, Anion Gap 7, BUN 32 H, Creatinine 3.10 H, Estim Creat Clear Calc 26.69, Est GFR (MDRD) Af Amer 26 L, Est GFR (MDRD) Non-Af 21 L, BUN/Creatinine Ratio 10.3, Glucose 74, C alcium 8.2 L Radiography Diagnostic Testing: Radiology Impression Hip X-Ray 02/15/24 17:00 IMPRESSION: Intraprocedural views. Electronically Signed: Maegan Gamble MD at 2:43 EST , Hip X-Ray 02/15/24 17:35 IMPRESSION: Well-positioned left femoral head prosthesis. Postop soft tissue changes. Electronically Signed: Maegan Gamble MD at 19:09 EST , Physical Exam Const alert, oriented x3, no apparent distress, average body habitus and well nourished Constitutional Narrative: Overweight, upper middle-aged, white male, sitting up in bed finishing breakfast and watching television appears comfortable currently, nontoxic, very pleasant General Appearance: cooperative HEENT normocephalic, head/scalp atraumatic, hearing grossly normal bilaterally and moist oral mucous membranes Resp normal respiratory effort, no retractions, no use of accessory muscles and clear to auscultation bilaterally Auscultation: Negative for rales, rhonchi or wheezes Cardio regular rate, regular rhythm, S1 normal heart sound, S2 normal heart sound, no rub, no gallops and no clicks; Negative for no murmurs Cardio Narrative: 3 out of 6 systolic murmur loudest at right upper sternal border GI normal to inspection, nondistended, normoactive bowel sounds, soft to palpation and non-tender Extremity no clubbing, cyanosis or edema Extremity Narrative: Pedal pulses are 2+, YUNIOR hose on bilateral lower extremity, polar ice over left hip with dressing in place Skin Skin Narrative: Tunneled dialysis catheter left chest, remains clean, dry, and intact Neuro oriented x3 and no focal motor deficits Speech: speech normal Psych affect normal Psych Narrative: Very pleasant, interacts appropriately Assessment & Plan Assessment/Plan (1) Subcapital fracture of left hip: PLAN: Plan Subcapital fracture of the left hip -Postop day 1 left hemiarthroplasty direct anterior approach -Weightbearing as tolerated -Continue Tylenol but schedule 1 g 3 times daily -Continue oxycodone 5 mg every 4 hours as needed for pain -Physical and Occupational Therapy consulted and evaluation is pending -If does well should be able to go home with home health care -Patient already has home health care set up for physical and Occupational Therapy -Case management/social work following for assistance with discharge planning -Dressing to come off in 5 days and if remains dry okay to shower -May shower with current dressing -Discussed with Dr. Marc-appreciate input History of pericardial effusion -No current evidence of effusion on CT or echocardiogram Bilateral pleural effusions -Small on the right but moderate on the left -Patient is on 100% on room air so I do not feel pressed to perform a thoracentesis while hospitalized -If does not improve with ongoing dialysis as an outpatient may be able to pursue as an outpatient to avoid trapped lung -Will recommend outpatient chest x-ray to follow-up Chronic anemia secondary to end-stage renal disease -Slight drop in hemoglobin is suspected postoperatively -Repeat in a.m. -Continue iron supplementation Recent GI bleed/GERD -Was admitted here in late December and had EGD for anemia with hemoglobin in the mid 7 range -Findings showed a esophageal gastric anastomosis with moderate stenosis that was biopsied and dilated as well as chronic gastritis -Biopsy showed chronic inflammation with no intestinal metaplasia. -Continue Protonix CAD/hyperlipidemia/essential hypertension/history of aortic valve stenosis -History of CABG x 3 in 2022 and PCI in 2019 -Aortic valve replacement in 2019 for aortic stenosis -Continue home atorvastatin -Continue home Zetia -Continue home metoprolol -Cardiology was consulted for preop optimization/clearance End-stage renal disease -HD dependent -Typical HD schedule is M WF -Nephrology is consulted History of esophageal cancer -History of esophagectomy with pull-up procedure--> 2020 -Status post chemo and radiation -Currently in remission DVT prophylaxis -Start subcu heparin now for DVT prophylaxis -Discharge DVT prophylaxis will be aspirin 81 mg p.o. twice daily for 30 days Charges/Coding Visit Charges Inpatient E&M: 64243 Subs Hosp L2
[2024-02-16] MEDS: Heparin Injection (Vial) 5,000 UNIT/ML VIAL 5000 UNIT SC ×2 (14:16→21:06)
--- NOTE | 2024-02-16 18:28 | PN.RENAL_ITS ---
Subjective Subjective Following for dialysis dependent LEELA/CKD. The patient denies chest pain, shortness of breath, or nausea. Objective Data Objective Data Vital Signs: Vital Signs Temp Pulse Resp BP Pulse Ox O2 Del Method O2 Flow Rate 98.0 F 74 16 119/82 H 97 Room Air 4 02/16/24 15:30 02/16/24 15:30 02/16/24 15:30 02/16/24 15:30 02/16/24 15:30 02/16/24 15:30 02/15/24 23:25 Oxygen Flow Rate (L/min) 4 Oxygen Delivery Method Room Air Weight: 100.3 kg Body Mass Index (BMI) 31.7 Intake & Output: Intake and Output for Last 24 Hours 02/14/24 02/15/24 02/16/24 23:59 23:59 23:59 Intake Total 240 / 490 1241.75 / 1241.75 Output Total 2160 / 2260 300 / 300 Balance -1920 / -1770 941.75 / 941.75 Lab / Micro Data 02/16/24 06:23 02/16/24 06:23 Labs: Laboratory Results - last 24 hr 02/16/24 06:23: WBC 8.6, RBC 4.13 L, Hgb 11.5 L, Hct 38.8 L, MCV 93.9, MCH 27.8, MCHC 29.6 L, RDW Std Deviation 64.0 H, RDW Coeff of Marcos 19.1 H, Plt Count 110 L, MPV 9.0, Sodium 136, Potassium 5.1, Chloride 106, Carbon Dioxide 23.0, Anion Gap 7, BUN 32 H, Creatinine 3.10 H, Estim Creat Clear Calc 26.69, Est GFR (MDRD) Af Amer 26 L, Est GFR (MDRD) Non-Af 21 L, BUN/Creatinine Ratio 10.3, Glucose 74, C alcium 8.2 L Radiography Diagnostic Testing: Radiology Impression Hip X-Ray 02/15/24 17:00 IMPRESSION: Intraprocedural views. Electronically Signed: Maegan Gamble MD at 2:43 EST , Hip X-Ray 02/15/24 17:35 IMPRESSION: Well-positioned left femoral head prosthesis. Postop soft tissue changes. Electronically Signed: Maegan Gamble MD at 19:09 EST , Physical Exam Narrative Alert awake oriented x 3 no obvious distress no pallor no icterus no JVD s1s2 no murmurs lungs clear abdomen soft no organomegaly no edema no cyanosis Assessment & Plan Assessment/Plan (1) LEELA (acute kidney injury): PLAN: Plan Impression/Plan: Acute kidney disease. Patient has dialysis dependent acute kidney disease. This is thought to be secondary to prior ischemic ATN. Urine output has been increasing. However, he remains dialysis dependent on MWF schedule. Plan is for 24-hour urine collection as outpatient to determine creatinine clearance off of hemodialysis. For now, continue MWF dialysis schedule. Next dialysis will be planned for 04/19/2023..
[2024-02-16] MEDS: Atorvastatin Calcium 80 MG Tablet PO (21:06)
[2024-02-17 03:15] VITALS: BP 103/70; PULSE 74; RESP 18; TEMP 36.6; O2SAT 97
[2024-02-17 05:00] VITALS: BMI 31.6
[2024-02-17] MEDS: Acetaminophen 500 MG Tablet 1000 MG PO (06:06)
[2024-02-17] MEDS: Heparin Injection (Vial) 5,000 UNIT/ML VIAL 5000 UNIT SC (06:06)
[2024-02-17 06:21] LABS: Hematocrit 34.3 % (40-54); Hemoglobin 10.5 g/dL (13.0-16.5); Mean Corp Hgb Conc 30.6 g/dL (32-36); Mean Corpuscular Hgb 28.2 pg (27.0-32.0); Mean Platelet Vol. 8.7 fl (6.2-12.0); Platelet Count 104 K/mm3 (150-450); RBC Distribution Width SD 63.3 fl (35.1-43.9); Red Blood Count 3.73 M/mm3 (4.6-6.2); White Blood Count 4.9 K/mm3 (4.4-11.0)
[2024-02-17 06:52] LABS: Anion Gap 7 (5-15); BUN 48 mg/dL (7-18); BUN/Creat Ratio 11.7 RATIO (10-20); Calcium,Total 8.2 mg/dL (8.5-10.1); Chloride 105 mmol/L (98-107); EST Glomerular Filtration Rate 15 mL/min (>60); Est Glom Filt Rate - Afr Amer 19 mL/min (>60); Estimated Creatinine Clearance 20.16 ml/min; Glucose 93 mg/dL (74-106); Potassium 4.8 mmol/L (3.5-5.1); Sodium Level 136 mmol/L (136-145)
[2024-02-17 08:58] VITALS: BP 124/80; PULSE 91; RESP 18; TEMP 36.7; O2SAT 95
[2024-02-17] MEDS: Fluticasone 0.05% 1 SPRAY NASAL.SRY NASAL (09:03)
[2024-02-17] MEDS: Aspirin 81 MG TAB.CHEW PO (09:04)
[2024-02-17] MEDS: Ferrous Sulfate 325 MG Tablet PO (09:04)
--- NOTE | 2024-02-17 09:04 | DS.PCM_ITS ---
Providers Date of Admission: 02/15/24 Date of Discharge: 02/17/24 Primary Care Physician: Dr. Yaw Singh MD Consultations 02/15/24 00:55 Consult: Nephrology Routine Consulting Provider: Gaudencio Greenberg Reason for Consult: ESRD on HD; (M-W-F) EMERGENT Consult: No MD Notified: Yes Date Notified: 02/15/24 Time Notified: 06:21 Method of Notification: Text Consult: Orthopedics Routine Consulting Provider: Jerod Marc Reason for Consult: Atraumatic Left Hip Fracture. EMERGENT Consult: No MD Notified: Yes Date Notified: 02/15/24 Time Notified: 06:23 Method of Notification: phone 02/15/24 01:41 Consult: Cardiology Routine Consulting Provider: Gurpreet Briones Reason for Consult: Pericardial Effusion and Preopeartive Evaluation. EMERGENT Consult: No MD Notified: Yes Date Notified: 02/15/24 Time Notified: 06:33 Method of Notification: Text Method of Consult:: In-Person Reason For Visit: ATRUAMTIC LEFT HIP FRACTURE Diagnosis Discharge Diagnosis (1) LEELA (acute kidney injury): Status: Acute Code(s): N17.9 - Acute kidney failure, unspecified Medications at Discharge Home Medications atorvastatin 80 mg tablet 80 mg PO QHS CHOLESTEROL #90 tabs 05/15/22 ezetimibe 10 mg tablet 10 mg PO DAILY CHOLESTEROL #90 tabs 05/15/22 acetaminophen 325 mg tablet 650 mg (2 x 325 mg) PO Q6H PRN PRN Pain 1-10 Or Fever >100.7 #0 tabs 10/25/23 melatonin 3 mg tablet 3 mg PO QHS PRN PRN Insomnia #0 tabs 10/25/23 metoprolol tartrate 25 mg tablet 25 mg PO BID #0 tabs 10/25/23 pantoprazole 40 mg tablet,delayed release 40 mg PO BID #0 tabs 10/25/23 ferrous sulfate 325 mg (65 mg iron) tablet 325 mg PO DAILY #90 tabs 11/20/23 polyethylene glycol 3350 17 gram/dose oral powder (Miralax) 17 g PO DAILY PRN constipation 12/04/23 ondansetron 4 mg disintegrating tablet 4 mg PO Q8H PRN PRN nausea and vomiting 12/25/23 fluticasone propionate 50 mcg/actuation nasal spray,suspension 1 spray intranasal DAILY 02/14/24 nitroglycerin 0.4 mg sublingual tablet 0.4 mg sublingual PRN PRN angina 02/14/24 acetaminophen 500 mg tablet 1,000 mg (2 x 500 mg) PO Q8 #1 TAB 02/17/24 aspirin 81 mg chewable tablet 81 mg PO BID #0 tabs 02/17/24 oxycodone 5 mg tablet 5 mg PO Q6H PRN pain 5 days #20 tabs 02/17/24 Hospital Course Operations - (Left hip hemiarthroplasty) Procedures 2-D Echocardiogram, EKG and - (Chest x-ray/hip x-ray x 2/CT chest) Summary of Care Provided Minutes Spent on Discharge: 38 Hospital Course: Mr. Landa is a 68-year-old white male who has a complex past medical history who presented to the emergency department at [facility] on 02/14/2024 with a chief complaint of left hip pain. Patient reported that the pain started about 2 days prior to presentation he denied any known injury however he was lifting his walker out of the back of his truck and indicated he did have a small amount of pain during that but nothing significant. He reported that his left inner thigh was progressively worsening as he has been trying to walk on that lower extremity. He reported that on the day of presentation when he was attempting to walk with his walker he had worsening pain to the point where he is unable to walk which prompted him to be evaluated in emergency department. Vital signs on presentation showed temperature of 98, heart rate 96, respirate 15, blood pressure 117/77 and pulse ox was 98% on room air. CBC shows a mild anemia with a hemoglobin of 12.5, thrombocytopenia with a platelet count of 127,000 and a normal white count. Coags were overtly unremarkable. Electrolytes were unremarkable. BUN and serum creatinine were elevated at 32 and 3.36 respectively however the patient is HD dependent at baseline. Liver function was were normal. Imaging of the hip was consistent with a subcapital fracture and orthopedic surgery was consulted by the emergency department physician. Cardiac clearance was obtained as the patient does have significant previous cardiac history with history of pericardial effusion. CT of the chest was ordered and there was no pericardial effusion on this. Echocardiogram was ordered and showed an EF of 60% with stage I diastolic dysfunction, mild asymmetric septal hypertrophy, moderate mitral annular calcification with 1+ mitral valve insufficiency, bioprosthetic aortic apparatus and no pericardial effusion was present. He was evaluated by orthopedic surgery and taken for left hip hemiarthroplasty on 02/15/2024. Patient did extremely well postoperatively. He had minimal pain and did well with physical therapy to the point where they felt he could go home safely with home health care. He already has home health care set up with nursing, physical, and occupational therapy after previous hospitalization. Patient is to keep his dressing on for 5 days and then take it off. He may shower both before and after. He is weightbearing as tolerated with his left lower extremity and will utilize a walker for the short-term. Surgery was anterior for it so he does not have significant postoperative restrictions with regards to motion. DVT prophylaxis as an outpatient per orthopedic surgery is to be 81 mg of aspirin twice daily for the next 30 days and then stop. Patient was able to be discharged home with home health care on 02/17/2024 in stable condition. Patient was found to have bilateral pleural effusions left greater than right would recommend outpatient follow-up chest x-ray and if effusion does not resolve with ongoing dialysis may need to consider thoracentesis. Discharge diagnoses: Subcapital fracture of the left hip status post left hip hemiarthroplasty History of pericardial effusion Small bilateral pleural effusions Chronic anemia secondary to end-stage renal disease Recent GI bleed History of GERD CAD Hyperlipidemia Essential hypertension History of aortic valve stenosis status post bioprosthetic aortic valve replacement End-stage renal disease on HD History of esophageal cancer Physical Exam Const alert, oriented x3, no apparent distress, average body habitus, no limitations, healthy appearing and well nourished Constitutional Narrative: Overweight, upper middle-aged, white male, sitting up in bed watching television, appears comfortable, nontoxic, very pleasant General Appearance: cooperative, comfortable, well kempt and well developed Exam Limitations: no limitations Nutritional Appearance: obese HEENT normocephalic, head/scalp atraumatic, hearing grossly normal bilaterally and moist oral mucous membranes Eyes PERRL, EOMs intact bilaterally and conjunctivae normal Eyes Narrative: No scleral icterus Neck no lymphadenopathy and supple Neck Narrative: Trachea midline, no thyroid enlargement Resp normal respiratory effort, no retractions, no use of accessory muscles and clear to auscultation bilaterally Auscultation: Negative for rales, rhonchi or wheezes Cardio regular rate, regular rhythm, S1 normal heart sound, S2 normal heart sound, no rub, no gallops and no clicks; Negative for no murmurs Cardio Narrative: 3 out of 6 systolic murmur loudest at right upper sternal border GI normal to inspection, nondistended, normoactive bowel sounds, soft to palpation and non-tender Extremity no clubbing, cyanosis or edema Extremity Narrative: Pedal pulses are 2+, YUNIOR hose on bilateral lower extremity, polar ice over left hip with dressing in place Skin skin turgor normal and no jaundice Skin Narrative: Tunneled dialysis catheter left chest, remains clean, dry, and intact, small amount of ecchymosis at the lateral aspect of the left hip Neuro oriented x3, CN's II-XII intact bilaterally and no focal motor deficits Speech: speech normal Psych affect normal Psych Narrative: Very pleasant, interacts appropriately Weight / BMI Weight Weight: 100 kg Body Mass Index (BMI) 31.6 ABG / Lab / Microbiology Data 02/17/24 06:06 02/17/24 06:06 Laboratory: Laboratory Results - last 24 hr 02/17/24 06:06: WBC 4.9, RBC 3.73 L, Hgb 10.5 L, Hct 34.3 L, MCV 92.0, MCH 28.2, MCHC 30.6 L, RDW Std Deviation 63.3 H, RDW Coeff of Marcos 19.0 H, Plt Count 104 L, MPV 8.7, Sodium 136, Potassium 4.8, Chloride 105, Carbon Dioxide 24.0, Anion Gap 7, BUN 48 H, Creatinine 4.10 H, Estim Creat Clear Calc 20.16, Est GFR (MDRD) Af Amer 19 L, Est GFR (MDRD) Non-Af 15 L, BUN/Creatinine Ratio 11.7, Glucose 93, C alcium 8.2 L Meaningful Use Info Meaningful Use Meaningful Use Diagnoses (Choose all that apply): None applicable Ischemic Stroke Statin Dosing Therapy Reference: STATIN DOSE THERAPY REFERENCE: * Patients > 75 years receive moderate or high dose statin therapy. * Patients 75 years or YOUNGER should receive HIGH intensity statin dose unless contraindicated. You will be required to document reason for non-treatment if statin daily dose does not meet guidelines. HIGH DOSE STATIN THERAPY DAILY Atorvastatin > than or = to 40 mg Rosuvastatin > than or = to 20 mg Amlodipine + Atorvastatin > than or = to 2.5/40 mg Ezetimibe + Simvastatin 10/80 mg Simvastatin 80mg Discharge Plan Admission Admit Date/Time: 02/15/24 00:11 Primary Reason for Your Visit: Left hip pain Attending Provider: Gayatri Roy Primary Care Provider: Yaw Singh Consulting Providers: Gaudencio Greenberg; Jerod Marc; Jesus Manuel Huerta; Gurpreet Briones Instructions Additional Instructions / Restrictions: 1. Keep dressing in place for 5 days as long as it stays clean and dry. Please remove after 5 days which should be 02/20/2024 2. Okay to shower with current dressing and after dressing removal 3. Please take aspirin 81 mg twice daily for the next 30 days to prevent blood clots in your legs from forming after surgery 4. You are allowed to bear weight on your left lower extremity as tolerated 5. You will need to follow-up with [facility] PA-C in 2 weeks for wound check and radiograph check Discharge Orders/Prescriptions Prescriptions: New acetaminophen 500 mg Tablet 1,000 mg PO Q8 Qty: 1 0RF Rx Instructions: Take Tylenol this way for 5 to 7 days postoperatively and then okay to go back and use as needed aspirin 81 mg Tablet,Chewable 81 mg PO BID Qty: 0 0RF Rx Instructions: Take for 30 days postop and then okay to discontinue oxycodone 5 mg Tablet 5 mg PO Q6H PRN (Reason: pain) 5 Days Qty: 20 0RF Continued atorvastatin 80 mg tablet 80 mg PO QHS Qty: 90 3RF ezetimibe 10 mg tablet 10 mg PO DAILY Qty: 90 3RF ferrous sulfate 325 mg (65 mg iron) tablet 325 mg PO DAILY Qty: 90 3RF melatonin 3 mg Tablet 3 mg PO QHS PRN PRN (Reason: Insomnia) Qty: 0 0RF metoprolol tartrate 25 mg Tablet 25 mg PO BID Qty: 0 0RF pantoprazole 40 mg Tablet,Delayed Release (Dr/Ec) 40 mg PO BID Qty: 0 0RF polyethylene glycol 3350 [Miralax] 17 gram/dose powder 17 g PO DAILY PRN (Reason: constipation) ondansetron 4 mg tablet,disintegrating 4 mg PO Q8H PRN PRN (Reason: nausea and vomiting) nitroglycerin 0.4 mg tablet, sublingual 0.4 mg sublingual PRN PRN (Reason: angina) fluticasone propionate 50 mcg/actuation spray,suspension 1 spray INTRANASAL DAILY Held acetaminophen 325 mg Tablet 650 mg PO Q6H PRN PRN (Reason: Pain 1-10 Or Fever >100.7) Qty: 0 0RF Hold Instructions: Until you are done taking scheduled Tylenol as directed on discharge Referrals / Follow Up: Yaw Singh MD [Primary Care Provider] - Within 2 Weeks [facility] PA-C [Med Staff - Adv Practice Prof] - Within 2 Weeks Disposition Disposition (needs filled in before D/C Order can be placed): Home Health Service Charges/Coding Visit Charges Inpatient E&M: 93930 Disch Hosp >30min
[2024-02-17 09:05] VITALS: PULSE 91
[2024-02-17] MEDS: Metoprolol Tartrate 25 MG Tablet PO (09:05)
[2024-02-17] MEDS: Ezetimibe 10 MG Tablet PO (09:05)
[2024-02-17] MEDS: Pantoprazole Sodium 40 MG Tablet PO (09:05)
[2024-02-17 10:34] VITALS: O2SAT 94; O2SAT 95
== END 2024-02-17 11:36 | disposition home health service (06) | DRG 521 ==
LOC: ED 23:10 → PCU 02-15 00:31
PROVIDERS: Anesthesiology; Specialist; Admitting Provider Internal Medicine; Emergency Provider Emergency Medicine; PCP Family Medicine; Visit Provider Internal Medicine
PROC: (CPT 27125; principal; 2024-02-15 15:40)
DX: S72.012A Unspecified intracapsular fracture of left femur, initial encounter for closed fracture (principal); N18.6 End stage renal disease; I50.31 Acute diastolic (congestive) heart failure; I13.2 Hypertensive heart and chronic kidney disease with heart failure and with stage 5 chronic kidney disease, or end stage renal disease; N17.9 Acute kidney failure, unspecified; D64.9 Anemia, unspecified; Z99.2 Dependence on renal dialysis; K21.9 Gastro-esophageal reflux disease without esophagitis; I25.10 Atherosclerotic heart disease of native coronary artery without angina pectoris; E78.5 Hyperlipidemia, unspecified; Z79.01 Long term (current) use of anticoagulants; Z92.3 Personal history of irradiation; Z95.5 Presence of coronary angioplasty implant and graft; Z92.21 Personal history of antineoplastic chemotherapy; X58.XXXA Exposure to other specified factors, initial encounter
CPT/HCPCS: 36415; 71250; 73502; 76000; 80048; 80053; 80076; 83735; 84100; 84443; 85025; 85027; 85610; 85730; 86850; 86900; 86901; 88305; 88311; 90937; 93005; 93306; 94668; 97162; 97165; 97802; 99284; C1776; Q9957; A4216; C8929; G0257; J2405

== ENCOUNTER → 2024-04-24 | Outpatient (CLI) | payer MEDICARE, OTHER, SELFPAY ==
--- NOTE | 2024-04-24 08:05 | VDUE_ITS ---
Reason For Study: Pre op Right Arm Left Arm Cephalic Vein at distal forearm measures Cephalic Vein at distal forearm measures 0.16 x 0.19 cm. 0.29 x 0.34 cm. Cephalic Vein at mid forearm measures 0.20 x Cephalic Vein at mid forearm measures 0.27 x 0.24 cm. 0.29 cm. Cephalic Vein proximal forearm measures 0.15 Cephalic Vein proximal forearm measures 0.28 x 0.16 cm. x 0.31 cm. Cephalic Vein distal upper arm measures 0.10 Cephalic Vein distal upper arm measures 0.25 x 0.09 cm. x 0.27 cm. Cephalic Vein at mid upper arm measures 0.13 Cephalic Vein at mid upper arm measures 0.28 x 0.16 cm. x 0.30 cm. Cephalic Vein at proximal upper arm measures Cephalic Vein at proximal upper arm measures 0.19 x 0.20 cm. 0.37 x 0.38 cm. Proximal Basilic vein measures 0.41 x 0.46 Proximal Basilic vein measures 0.73 x 0.80 cm. cm. Mid Basilic vein measures 0.40 x 0.50 cm. Mid Basilic vein measures 0.35 x 0.36 cm. Distal Basilic vein measures 0.32 x 0.33 cm. Distal Basilic vein measures 0.38 x 0.39 cm. Right Brachial artery measures 0.44 x 0.49 Left Brachial artery measures 0.39 x 0.40 cm cm with a velocity of 63.3 cm/sec. with a velocity of 64.6 cm/sec. Right Radial artery measures 0.20 x 0.24 cm Left Radial artery measures 0.26 x 0.24 cm with a velocity of 46.5 cm/sec. with a velocity of 52.9 cm/sec. VL/Dialysis Vein Map PRE-OP BILAT Interpretation Summary Bilateral upper extremity arteries patent with normal waveforms and measurement s above. Bilateral upper extremity veins patent with measurements above. Ordering Physician: Gaudencio Greenberg Referring Physician: Yaw Singh Performed By: Di Appiah Devang ???
== END | disposition home or self-care (01) ==
LOC: CVS 08:03
PROVIDERS: PCP Family Medicine; Referring Provider Internal Medicine Nephrology; Visit Provider Internal Medicine Nephrology
DX: Z01.818 Encounter for other preprocedural examination (principal); N18.6 End stage renal disease

== ENCOUNTER → 2024-06-06 | Outpatient (CLI) | payer MEDICARE, OTHER, SELFPAY ==
[2024-06-06 08:30] LABS: Hemoglobin 11.1 g/dL (13.0-16.5); Mean Corp Hgb Conc 31.7 g/dL (32-36); Mean Corpuscular Hgb 30.1 pg (27.0-32.0); Mean Corpuscular Volume 94.9 fL (80-94); Mean Platelet Vol. 9.8 fl (6.2-12.0); Platelet Count 198 K/mm3 (150-450); RBC Distribution Width CV 15.9 % (11.6-14.6); RBC Distribution Width SD 55.7 fl (35.1-43.9); Red Blood Count 3.69 M/mm3 (4.6-6.2); White Blood Count 5.6 K/mm3 (4.4-11.0)
[2024-06-06 09:18] LABS: Anion Gap 11 (5-15); BUN 32 mg/dL (4-19); BUN/Creat Ratio 10.6 RATIO (10-20); Calcium 9.1 mg/dL (7.6-11.0); Carbon Dioxide 28.9 mmol/L (22.0-29.0); Chloride 98 mmol/L (96-108); Creatinine, Serum 2.96 mg/dL (0.70-1.20); EST Glomerular Filtration Rate 22 (>60); Glucose 93 mg/dL (70-99); Sodium Level 138 mmol/L (133-145)
== END | disposition home or self-care (01) ==
LOC: LAB 08:01
PROVIDERS: PCP Family Medicine; Referring Provider Surgery Trauma Surgery; Visit Provider Surgery Trauma Surgery
DX: Z01.818 Encounter for other preprocedural examination (principal)
CPT/HCPCS: 36415; 80048; 85027

== ENCOUNTER 2024-06-30 06:45 | Day surgery (SDC) | payer MEDICARE, OTHER, SELFPAY ==
--- NOTE | 2024-06-02 18:18 | PAT.ANESEVAL ---
Pre-Assessment Diagnosis/Proposed Procedure Planned Operative Procedure(s): (L) Left Arteriovenous Fistula,Creation Anesthesia History Anesthesia History - trench pipe layer: Anesthesia History - trench pipe layer Hx Hospitalization Yes: KIDNEY PROBLEMS, 06/02/24 10:59 2023 L JOSE-HIP Any Problems With Anesthesia No 06/02/24 10:59 Cholinesterase deficiency No 06/02/24 10:59 You/Your Family Experience No 06/02/24 10:59 fever (hyperthermia) with Relationship Recent Exposure to Contagious No 02/15/24 14:09 Disease Does patient have nerve No 06/02/24 10:59 stimulator Patient instructed to have device shut off --Does patient have Pacemaker or ICD? When Was Last Pacemaker Check QUESTION #4 FULL TEXT: You/Your Family Experience fever (hyperthermia) with Anesthesia Last Oral Intake Last Oral intake: Last Oral Intake NPO since Meds taken in AM with sips of water? Meds patient instructed to take am of surgery PONV PONV - trench pipe layer: PONV - trench pipe layer Female No 06/02/24 10:59 HX of Motion Sickness No 06/02/24 10:59 HX of N/V After Surgery No 06/02/24 10:59 Non-Smoker Yes 06/02/24 10:59 Duration of Surgery greater No 06/02/24 10:59 than 60 minutes Number of Risk Factors 1 06/02/24 10:59 PONV Score Low Risk 06/02/24 10:59 Height & Weight Height & Weight: Anesthesia: Height & Weight Height 5 ft 10 in 02/15/24 14:45 Respiratory Assessment Respiratory Assessment - trench pipe layer: Respiratory Tract Infection Hx - trench pipe layer Hx Respiratory Tract Infection No 06/02/24 10:59 STOP Sleep Apnea STOP Sleep Apnea - trench pipe layer: STOP Sleep Apnea - trench pipe layer Hx Hypertension Yes: CONTROLLED ON MEDS 06/02/24 10:59 Hx Sleep Apnea No 06/02/24 10:59 CPAP No 06/02/24 10:59 BIPAP No 06/02/24 10:59 Do you snore loudly (louder No 06/02/24 10:59 than talking or can be heard Do you often feel tired/ No 06/02/24 10:59 fatigued/ sleepy during daytime? Has anyone observed you stop No 06/02/24 10:59 breathing during sleep? STOP Results Negative 06/02/24 10:59 QUESTION #5 FULL TEXT : Do you snore loudly (louder than talking or can be heard through closed doors)? 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 Specify any problems Hx of Preganancy in last 3 N/A 06/02/24 10:59 Months Nurse Filling Out Transfusion VCHRISTIN 06/02/24 10:59 & Questions: Date: 06/02/24 06/02/24 10:59 Time: 11:01 06/02/24 10:59 Patient unable to answer at this time (ie. confused, unrespo /Reproduction History /Reproductive History - trench pipe layer: /Reproductive Hx- trench pipe layer Hx Now No 06/02/24 10:59 Gestational Age (in weeks): EDC: Hx Hx Para Hx Section SAB No 06/02/24 10:59 PFSH Medical History (Updated 06/02/24 @ 10:58 by Tresa Mesa) Wears glasses Cancer Cancer Pressure ulcer History of renal dialysis History of renal disease Injury of back History of GI bleed Gastric reflux Shortness of breath on exertion History of stress test History of echocardiogram Cardiology follow-up encounter Thrombus of venous dialysis catheter ESRD (end stage renal disease) on dialysis Acute respiratory insufficiency Medical non-compliance Acute exacerbation of chronic heart failure Chronic kidney disease (CKD) Pleural effusion Dyspnea Acute kidney injury Adenocarcinoma of esophagus LEELA (acute kidney injury) Non-smoker Esophageal carcinoma Atherosclerosis of coronary artery of [place] heart without angina pectoris 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 Essential (primary) hypertension Non-rheumatic aortic stenosis Syncope and collapse Hyperlipidemia Atherosclerotic heart disease of [place] coronary artery with other forms of angina pectoris Encounter for long-term current use of high risk medication abnormal stress test Angina pectoris Exertional chest pain Home Medications ?Medication ?Instructions ?Recorded ?Last Taken ?Type atorvastatin 80 mg tablet 80 mg PO QHS CHOLESTEROL #90 tabs 05/15/22 12/24/23 Rx ezetimibe 10 mg tablet 10 mg PO DAILY CHOLESTEROL #90 tabs 05/15/22 12/24/23 Rx metoprolol tartrate 25 mg tablet 25 mg PO BID #0 tabs 10/25/23 12/24/23 Rx pantoprazole 40 mg tablet,delayed 40 mg PO BID #0 tabs 10/25/23 12/24/23 Rx release ferrous sulfate 325 mg (65 mg 325 mg PO DAILY #90 tabs 11/20/23 12/24/23 Rx iron) tablet polyethylene glycol 3350 17 17 g PO DAILY PRN constipation 12/04/23 Unknown History gram/dose oral powder (Miralax) ondansetron 4 mg disintegrating 4 mg PO Q8H PRN PRN nausea and 12/25/23 12/25/23 08:00 History tablet vomiting nitroglycerin 0.4 mg sublingual 0.4 mg sublingual PRN PRN angina 02/14/24 Unknown History tablet aspirin 81 mg chewable tablet 81 mg PO BID #0 tabs 02/17/24 Unknown Rx acetaminophen 500 mg tablet 1,000 mg PO Q8 PRN pain 04/29/24 Unknown History amoxicillin 500 mg tablet 2,000 mg (4 x 500 mg) PO ONCE #4 04/29/24 Unknown Rx tabs Allergy/AdvReac Type Severity Reaction Status Date / Time No Known Allergies Allergy Verified 06/02/24 10:53 Family History Father Heart disease Myocardial infarction Hypertension Brother Hypertension Sister Heart disease Myocardial infarction Surgical History (Updated 06/02/24 @ 10:58 by Tresa Mesa) History of hip replacement (~02/2024) History of cardiac catheterization History of esophagogastroduodenoscopy (EGD) Hx of surgical procedure History of aortic valve replacement (03/03/19) History of coronary artery stent placement (12/31/18) H/O coronary artery bypass surgery (09/18/02) History of tonsillectomy History of hernia repair Social History Smoking Status: Never smoker alcohol intake: never substance use type: does not use caffeine: No what type of physical activity do you participate in: walking frequency: daily Audit: Pertinent Findings HISTORY of Pertinent Findings History of Pertinent Findings: EHV-XEN-Ojhukd RPDA w/ 2.25 x 16 mm Promus Premier, APPLE-Distal RCA w/ 4.0 x 16 mm Promus Premier and APPLE-Mid RCA w/ 4.0 x 16 mm Promus Premier 07/23/2014; OXI-BFN-Zaoblh SVG-D1 w/ 3.5 x 18 mm Xience Taylor Stent 12/31/18; CABG x 3: MCKEON-LAD, SURAJ-Ramus, SVG-D1 09/18/2002; TAVR w/ #26 Vilma S3 Valve 03/03/2019; Pertinent Findings EKG Perinent findings: 02/15/2024: NSR Stress test pertinent findings: Stress Test 01/08/21 Conclusion: Negative Lexiscan sestamibi myocardial perfusion study for reversible myocardial ischemia Normal ventricular systolic function Echo (EF%) pertinent findings: echo 02/15/2024: LVEF 60%, Stage 1 DD, mild assymetric septal hypertrophy, mod mitral calcification, mild (1+) MV insufficiency, stable bioprosthetic aortic valve Additional pertinent findings: saw love PA on 04/29/24: appears to be stable from cardiac standpoint Recommendation Anesthesia Recommendation Anesthesia recommendation: OPTIMIZED for anesthesia
[2024-06-30] VITALS (9 sets, daily range): BP systolic 102–140; BP diastolic 65–91; PULSE 78–85; RESP 16–20; TEMP 36.2–36.9; O2SAT 96–100; BMI 23.8
--- NOTE | 2024-06-30 07:14 | PCM.HP.STD ---
HPI - General HPI Narrative NICKO ROSALES, is a 69 M who presents with ESRD currently on dialysis after LEELA last year with no recovery of renal function. He had vein mapping that revealed adequate left upper arm cephalic, basilic veins. [facility] Medical History Wears glasses Cancer Cancer Pressure ulcer History of renal dialysis History of renal disease Injury of back History of GI bleed Gastric reflux Shortness of breath on exertion History of stress test History of echocardiogram Cardiology follow-up encounter Thrombus of venous dialysis catheter ESRD (end stage renal disease) on dialysis Acute respiratory insufficiency Medical non-compliance Acute exacerbation of chronic heart failure Chronic kidney disease (CKD) Pleural effusion Dyspnea Acute kidney injury Adenocarcinoma of esophagus LEELA (acute kidney injury) Non-smoker Esophageal carcinoma Atherosclerosis of coronary artery of [place] heart without angina pectoris 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 Essential (primary) hypertension Non-rheumatic aortic stenosis Syncope and collapse Hyperlipidemia Atherosclerotic heart disease of [place] coronary artery with other forms of angina pectoris Encounter for long-term current use of high risk medication abnormal stress test Angina pectoris Exertional chest pain Home Medications ?Medication ?Instructions ?Recorded ?Last Taken ?Type atorvastatin 80 mg tablet 80 mg PO QHS CHOLESTEROL #90 tabs 05/15/22 12/24/23 Rx ezetimibe 10 mg tablet 10 mg PO DAILY CHOLESTEROL #90 tabs 05/15/22 12/24/23 Rx metoprolol tartrate 25 mg tablet 25 mg PO BID #0 tabs 10/25/23 06/30/24 05:30 Rx pantoprazole 40 mg tablet,delayed 40 mg PO BID #0 tabs 10/25/23 06/30/24 05:30 Rx release ferrous sulfate 325 mg (65 mg 325 mg PO DAILY #90 tabs 11/20/23 06/29/24 Rx iron) tablet polyethylene glycol 3350 17 17 g PO DAILY PRN constipation 12/04/23 Unknown History gram/dose oral powder (Miralax) ondansetron 4 mg disintegrating 4 mg PO Q8H PRN PRN nausea and 12/25/23 12/25/23 08:00 History tablet vomiting nitroglycerin 0.4 mg sublingual 0.4 mg sublingual PRN PRN angina 02/14/24 Unknown History tablet aspirin 81 mg chewable tablet 81 mg PO BID #0 tabs 02/17/24 06/29/24 Rx acetaminophen 500 mg tablet 1,000 mg PO Q8 PRN pain 04/29/24 Unknown History amoxicillin 500 mg tablet 2,000 mg (4 x 500 mg) PO ONCE #4 04/29/24 Unknown Rx tabs Allergy/AdvReac Type Severity Reaction Status Date / Time No Known Allergies Allergy Verified 06/30/24 07:01 Family History Father Heart disease Myocardial infarction Hypertension Brother Hypertension Sister Heart disease Myocardial infarction Surgical History History of hip replacement (~02/2024) History of cardiac catheterization History of esophagogastroduodenoscopy (EGD) Hx of surgical procedure History of aortic valve replacement (03/03/19) History of coronary artery stent placement (12/31/18) H/O coronary artery bypass surgery (09/18/02) History of tonsillectomy History of hernia repair Social History Smoking Status: Never smoker alcohol intake: never substance use type: does not use caffeine: No what type of physical activity do you participate in: walking frequency: daily ROS Constitutional Constitutional: Denies chills, fever(s), frequent falls, lethargy or weakness Eyes Eyes: Denies blind spots, change in vision or loss of vision ENT HEENT: Denies bleeding gums, hoarseness or sore throat Cardiovascular Cardiovascular: Denies abdominal pain, bluish discoloration of hand/feet, chest pain with activity, claudication, cold extremities, cyanosis, dyspnea on exertion, erythema on extremities, irregular heart rhythm, leg edema, leg ulcers, numbness in extremities or weakness in extremities Respiratory/Chest Respiratory/Chest: Denies cough, excessive phlegm production, shortness of breath at rest, shortness of breath with exertion or wheezing Gastrointestinal Gastrointestinal: Denies anorexia, change in stool character, constipation, diarrhea, melena or rectal bleeding Genitourinary Genitourinary: Denies dysuria or hematuria Musculoskeletal Musculoskeletal: Denies abnormal gait Integumentary Integumentary: Reports other Details: ; Denies erythema, non-healing lesions or wounds Neurologic Neurologic: Denies abnormal speech, focal weakness, headache(s), loss of vision, numbness, paresthesias or sensory deficit Hematologic/Lymphatic Hematologic/Lymphatic: Denies easy bleeding, easy bruising or lymphadenopathy Vital Signs Vital Signs Vital Signs: 06/30/24 07:02 06/30/24 07:02 Temperature 97.7 F L Temperature Source Temporal Pulse Rate 80 Respiratory Rate 16 Respiratory Pattern Normal Blood Pressure 140/91 H Blood Pressure Mean 107 Blood Pressure Source Monitor Blood Pressure Position Semi-Fowlers Blood Pressure Location Right Arm Pulse Ox 100 Oxygen Delivery Method Room Air Weight Weight: 161 lb 6.054 oz Body Mass Index (BMI) 23.8 Physical Exam Const alert, oriented x3, no apparent distress and healthy appearing General Appearance: cooperative; Negative for combative or lethargic Orientation / Consciousness: awake Exam Limitations: no limitations HEENT Head and Scalp: normocephalic and atraumatic Eyes EOMs intact bilaterally General Eye: normal appearance of both eyes Neck full ROM General: trachea midline Resp normal respiratory effort and no use of accessory muscles Effort and Inspection: Negative for labored, stridor or audible wheezes Cardio regular rate and regular rhythm Back/Spine Cervical Spine: cervical ROM normal Extremity full ROM, normal capillary refill and no clubbing, cyanosis or edema Skin no rashes or lesions noted Neuro oriented x3, CN's II-XII intact bilaterally, no focal motor deficits and no sensory deficits noted Psych thought process normal, cooperative, affect normal, speech normal and activity/motor behavior normal Assessment & Plan Assessment/Plan (1) ESRD (end stage renal disease) on dialysis: PLAN: -left upper arm fistula creation
--- NOTE | 2024-06-30 07:23 | PRE.ANES_ITS ---
ASA Classification* ASA Classification ASA Classification: 3 Assessment & Plan Anesthesia* Anesthesia Assessment Anesthesia Assessment: Discussed sedation and/or anesthesia options, risks, benefits, and alternatives with patient/parents/legal guardian/POA. Questions invited. The patient/parents/legal guardian/POA seems to understand and agrees to proceed with anesthesia plan. Reviewed the physical assessment, medical history, allergy history and patient home medications list prior to surgery/procedure/anesthetic and documented any changes. Performed airway and anesthesia risk assessments. Anesthesia Type Anesthesia Type: MAC History Source History Obtained from:: Patient and Chart Anesthesia Focused Assessment* Temperature: 97.7 F Pulse Rate: 80 Blood Pressure: 140/91 Respiratory Rate: 16 Pulse Ox: 100 Oxygen Delivery Method: Room Air Airway Assessment Mouth opens: >3 cm Mallampati Score: III Teeth Condition: Missing (Patient is missing several molars. Rest are tight.) Neck Range of motion (ROM): Limited ROM (Slight decrease in extension) Focused Labs Anesthesia Preop lab: CBC WBC 5.6 K/mm3 (4.4-11.0) 06/06/24 08:04 06/06/24 RBC 3.69 M/mm3 (4.6-6.2) L 06/06/24 08:04 06/06/24 Hgb 11.1 g/dL (13.0-16.5) L 06/06/24 08:04 5 Hct 35.0 % (40-54) L 06/06/24 08:04 06/06/24 Plt Count 198 K/mm3 (150-450) 06/06/24 08:04 06/06/24 CHEMISTRY Potassium 4.0 mmol/L (3.3-5.1) 06/06/24 08:04 06/06/24 Sodium 138 mmol/L (133-145) 06/06/24 08:04 06/06/24 Magnesium 2.2 mg/dL (1.6-2.6) 02/15/24 06:30 02/15/24 Phosphorus 4.9 mg/dL (2.5-4.9) 02/15/24 06:30 02/15/24 BUN 32 mg/dL (4-19) H 06/06/24 08:04 06/06/24 Creatinine 2.96 mg/dL (0.70-1.20) H 06/06/24 08:04 Glucose 93 mg/dL (70-99) 06/06/24 08:04 06/06/24 TSH 2.630 uIU/mL (0.358-3.740) 02/15/24 06:30 11/30 COAG PT 18.0 SECONDS (11.7-14.9) H 02/15/24 06:30 11/30 Pre-Assessment Diagnosis/Proposed Procedure Planned Operative Procedure(s): (L) Left Arteriovenous Fistula,Creation Anesthesia History Anesthesia History - document control coordinator: Anesthesia History - document control coordinator Hx Hospitalization Yes: KIDNEY PROBLEMS, 06/02/24 10:59 2023 L [facility] Any Problems With Anesthesia No 06/02/24 10:59 Cholinesterase deficiency No 06/02/24 10:59 You/Your Family Experience No 06/02/24 10:59 fever (hyperthermia) with Relationship Recent Exposure to Contagious No 06/30/24 07:02 Disease Does patient have nerve No 06/02/24 10:59 stimulator Patient instructed to have device shut off --Does patient have Pacemaker No 06/30/24 07:02 or ICD? When Was Last Pacemaker Check QUESTION #4 FULL TEXT: You/Your Family Experience fever (hyperthermia) with Anesthesia Last Oral Intake Last Oral intake: Last Oral Intake NPO since 22:00 06/30/24 07:02 Meds taken in AM with sips of Yes 06/30/24 07:02 water? Meds patient instructed to take am of surgery PONV PONV - document control coordinator: PONV - document control coordinator Female No 06/02/24 10:59 HX of Motion Sickness No 06/02/24 10:59 HX of N/V After Surgery No 06/02/24 10:59 Non-Smoker Yes 06/02/24 10:59 Duration of Surgery greater No 06/02/24 10:59 than 60 minutes Number of Risk Factors 1 06/02/24 10:59 PONV Score Low Risk 06/02/24 10:59 Height & Weight Height & Weight: Anesthesia: Height & Weight Height 5 ft 9 in 06/30/24 07:02 Weight: 73.2 kg 06/30/24 07:02 Body Mass Index (BMI) 23.8 06/30/24 07:02 Respiratory Assessment Respiratory Assessment - document control coordinator: Respiratory Tract Infection Hx - document control coordinator Hx Respiratory Tract Infection No 06/02/24 10:59 STOP Sleep Apnea STOP Sleep Apnea - document control coordinator: STOP Sleep Apnea - document control coordinator Hx Hypertension Yes: CONTROLLED ON MEDS 06/02/24 10:59 Hx Sleep Apnea No 06/02/24 10:59 CPAP No 06/02/24 10:59 BIPAP No 06/02/24 10:59 Do you snore loudly (louder No 06/02/24 10:59 than talking or can be heard Do you often feel tired/ No 06/02/24 10:59 fatigued/ sleepy during daytime? Has anyone observed you stop No 06/02/24 10:59 breathing during sleep? STOP Results Negative 06/02/24 10:59 QUESTION #5 FULL TEXT : Do you snore loudly (louder than talking or can be heard through closed doors)? 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 Specify any problems Hx of Preganancy in last 3 N/A 06/02/24 10:59 Months Nurse Filling Out Transfusion VCHRISTIN 06/02/24 10:59 & Questions: Date: 06/02/24 06/02/24 10:59 Time: 11:01 06/02/24 10:59 Patient unable to answer at this time (ie. confused, unrespo /Reproduction History /Reproductive History - document control coordinator: /Reproductive Hx- document control coordinator Hx Now No 06/02/24 10:59 Gestational Age (in weeks): EDC: Hx Hx Para Hx Section SAB No 06/02/24 10:59 Active Medications Active Medications: Current Medications Generic Name Dose Route Start Last Admin Trade Name [place] PRN Reason Stop Dose Admin Cefazolin Sodium 2 gm/ N/A 20 mls @ 400 mls/hr 06/30/24 07:30 IV 06/30/24 07:32 PREOP [facility] Medical History Wears glasses Cancer Cancer Pressure ulcer History of renal dialysis History of renal disease Injury of back History of GI bleed Gastric reflux Shortness of breath on exertion History of stress test History of echocardiogram Cardiology follow-up encounter Thrombus of venous dialysis catheter ESRD (end stage renal disease) on dialysis Acute respiratory insufficiency Medical non-compliance Acute exacerbation of chronic heart failure Chronic kidney disease (CKD) Pleural effusion Dyspnea Acute kidney injury Adenocarcinoma of esophagus LEELA (acute kidney injury) Non-smoker Esophageal carcinoma Atherosclerosis of coronary artery of [place] heart without angina pectoris 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 Essential (primary) hypertension Non-rheumatic aortic stenosis Syncope and collapse Hyperlipidemia Atherosclerotic heart disease of [place] coronary artery with other forms of angina pectoris Encounter for long-term current use of high risk medication abnormal stress test Angina pectoris Exertional chest pain Home Medications ?Medication ?Instructions ?Recorded ?Last Taken ?Type atorvastatin 80 mg tablet 80 mg PO QHS CHOLESTEROL #90 tabs 05/15/22 12/24/23 Rx ezetimibe 10 mg tablet 10 mg PO DAILY CHOLESTEROL # 90 tabs 05/15/22 12/24/23 Rx metoprolol tartrate 25 mg tablet 25 mg PO BID #0 tabs 10/25/23 06/30/24 05:30 Rx pantoprazole 40 mg tablet,delayed 40 mg PO BID #0 tabs 10/25/23 06/30/24 05:30 Rx release ferrous sulfate 325 mg (65 mg 325 mg PO DAILY #90 tabs 11/20/23 06/29/24 Rx iron) tablet polyethylene glycol 3350 17 17 g PO DAILY PRN constipa tion 12/04/23 Unknown History gram/dose oral powder (Miralax) ondansetron 4 mg disintegrating 4 mg PO Q8H PRN PRN na usea and 12/25/23 12/25/23 08:00 History tablet vomiting nitroglycerin 0.4 mg sublingual 0.4 mg sublingual PRN PRN angina 02/14/24 Unknown History tablet aspirin 81 mg chewable tablet 81 mg PO BID #0 tabs 01/3006/29/24 Rx acetaminophen 500 mg tablet 1,000 mg PO Q8 PRN pain Unknown History amoxicillin 500 mg tablet 2,000 mg (4 x 500 mg) PO ONC E #4 04/29/24 Unknown Rx tabs Allergy/AdvReac Type Severity Reaction Status Date / Time No Known Allergies Allergy Verified 06/30/24 07:01 Family History Father Heart disease Myocardial infarction Hypertension Brother Hypertension Sister Heart disease Myocardial infarction Surgical History History of hip replacement (~02/2024) History of cardiac catheterization History of esophagogastroduodenoscopy (EGD) Hx of surgical procedure History of aortic valve replacement (03/03/19) History of coronary artery stent placement (12/31/18) H/O coronary artery bypass surgery (09/18/02) History of tonsillectomy History of hernia repair Social History Smoking Status: Never smoker alcohol intake: never substance use type: does not use caffeine: No what type of physical activity do you participate in: walking frequency: daily Review of Systems (Anesthesia) ROS Narrative System reviewed and no additional complaints, except as documented.
[2024-06-30] MEDS: Cefazolin 2 GM in Syringe IV (07:50)
[2024-06-30] MEDS: Bupivacaine 0.25% 30 ML Vial (08:12)
[2024-06-30] MEDS: Lidocaine 1% (20 ml mdv) 20 ML Vial (08:12)
--- NOTE | 2024-06-30 09:13 | EX.PCM.DISCH ---
Discharge Instructions Diet Discharge Diet: No restrictions Activity Lifting Restrictions: do not lift > 20 lbs with left arm for 14 days Additional Activity Instructions:: do not submerge incision for 14 days Dressing / Incision Call your doctor if your incision/area has: Sudden Increased Bleeding, Increased Pain/ Swelling, Increased Redness and Foul Smelling Discharge Call your doctor if you observe: Fever of 101 or Higher, Coldness, Increased Pain and Numbness or Tingling Remove Dressing in: 2 days Follow Up Care Test Results: Test results from this visit will be discussed in further detail at your follow-up appointment, if applicable. Discharge Plan Admission Attending Provider: Nikita Jackson Primary Care Provider: Yaw Singh Instructions Print Language: Greenlandic Discharge Orders/Prescriptions Prescriptions: New oxycodone 5 mg tablet 5 mg PO Q8H PRN (Reason: pain) 2 Days Qty: 6 0RF Continued atorvastatin 80 mg tablet 80 mg PO QHS Qty: 90 3RF ezetimibe 10 mg tablet 10 mg PO DAILY Qty: 90 3RF ferrous sulfate 325 mg (65 mg iron) tablet 325 mg PO DAILY Qty: 90 3RF acetaminophen 500 mg tablet 1,000 mg PO Q8 PRN (Reason: pain) Rx Instructions: Take Tylenol this way for 5 to 7 days postoperatively and then okay to go back and use as needed amoxicillin 500 mg tablet 2,000 mg PO ONCE Qty: 4 0RF Rx Instructions: Take one hour prior to dental cleanings/procedure metoprolol tartrate 25 mg Tablet 25 mg PO BID Qty: 0 0RF pantoprazole 40 mg Tablet,Delayed Release (Dr/Ec) 40 mg PO BID Qty: 0 0RF polyethylene glycol 3350 [Miralax] 17 gram/dose powder 17 g PO DAILY PRN (Reason: constipation) ondansetron 4 mg tablet,disintegrating 4 mg PO Q8H PRN PRN (Reason: nausea and vomiting) nitroglycerin 0.4 mg tablet, sublingual 0.4 mg sublingual PRN PRN (Reason: angina) aspirin 81 mg Tablet,Chewable 81 mg PO BID Qty: 0 0RF Rx Instructions: Take for 30 days postop and then okay to discontinue Referrals / Follow Up: Yaw Singh MD [Primary Care Provider] - Disposition Disposition (needs filled in before D/C Order can be placed): Home, Self Care
--- NOTE | 2024-06-30 09:18 | OP.PCM_ITS ---
Operative Report (Standard) Operative Information Date of Procedure: 06/30/24 Pre-Operative Diagnosis: ESRD Post-Operative Diagnosis: same Surgery/Procedure Performed: left brach-ceph fistula creation math and physics instructor: Yes Accounting Representative: Kristi Vázquez Tasks completed by first officer: Opening, Closing, Opening & closing, Hemostasis: Tie and Retracting Type of Anesthesia: Local MAC, Local and MAC RN Documented Start/Stop Times: Operation Date: 06/30/24 07:30 Case Time Into Pre-Op 06/30/24 06:48 Out of Pre-Op 06/30/24 07:33 Anesthesia Start 06/30/24 07:38 Into Room 06/30/24 07:38 Procedure Start 06/30/24 08:12 Procedure End 06/30/24 09:18 Anesthesia End 06/30/24 09:22 Out of Room 06/30/24 09:22 Into Recovery 06/30/24 09:25 Out of Recovery 06/30/24 09:46 Into Phase II Recovery 06/30/24 09:47 Out of Phase II 06/30/24 11:41 Procedure Start Time: 08:15 Procedure Stop Time: 09:15 Select all DRAINS/GRAFTS/IMPLANTS that apply: None Estimated Blood Loss: 9 Specimen collected: No Description of surgery: HPI: Patient is a 69-year-old male with end-stage renal disease currently on dialysis. He had vein mapping which revealed satisfactory left cephalic vein so he presents now for [place] fistula creation. Description of procedure: Upon obtaining form consent and verification correct patient procedure and site the patient was taken to the operating where he was positioned prepped and draped in usual sterile fashion. Timeout was performed and moderate sedation administered by anesthesia. The cephalic vein was evaluated ultrasound and found to be patent with satisfactory caliber throughout the upper arm with close proximity to the brachial artery just distal to the antecubital crease. Skin overlying the vessels at this location was anesthetized with 1% lidocaine and transverse incision created 1 fingerbreadth distal to the antecubital crease. Bovie electrocautery used to dissect down and self-retaining retractors put in position. When the cephalic vein was visualized sharp dissection was used to dissect free proximal and distal with sidebranches ligated with silk ties and the vessel retracted laterally. Self- retaining retractors then moved deeper in the wound and further dissection carried down to the level the fascia. The fascia was then incised in cruciate configuration exposing the brachial artery and vein. Sharp dissection was used dissect free proximally and distally and a right angle used to place a vessel loop at these locations. The patient was then heparinized and allowed to circulate for 3 minutes. The cephalic vein was then ligated distally in the field and dilated up to 3 and half millimeters and flushed with heparinized saline. The brachial artery was occluded with Vesseloops and longitudinal arteriotomy created with an 11 blade extended with [place] scissors. The vein was then beveled to match the arteriotomy and anastomosis performed using a 6-0 Prolene running fashion. After completing suture line clamps removed and satisfactory stasis was noted. There is a palpable radial pulse and a palpable thrill in the fistula. Heparin was then reversed with protamine and the incision inspected for hemostasis. Incision was closed with 3-0 Vicryl followed by 4 Monocryl and Dermabond for the skin. At the inclusion the case patient was taken to the recovery room with anticipated discharge to home. Surgical Findings: see above Complications Complications: No
--- NOTE | 2024-06-30 09:33 | PCM.POST.ANE ---
Anesthesia: Postop Eval I Current Vital Signs Temperature: 97.2 F Pulse Rate: 85 Blood Pressure: 102/75 Respiratory Rate: 20 Pulse Ox: 96 Oxygen Delivery Method: Room Air Assessment Airway patent: Yes Spontaneous unlabored respirations: Yes Mental status: Awake and Calm nausea: No Vomiting: No Anesthesia Complication: Yes Anesthesia Complication Comment:: right nares with epistaxis from npa Fluid Hydration Crystalloid volume administer (ml): 250 Total IV fluid infused: 250 Progress Note Anesthesia document: Postop Eval 1 completed: Yes
--- NOTE | 2024-06-30 10:15 | POSTOPAN2_ITS ---
Anesthesia Postop Eval I Sum Postop Eval Completion status Anesthesia document: Postop Eval 1 completed: Yes Anesthesia Postop Eval I Summary Anesthesia Postop Eval I Summary: Anesthesia Postop Eval I: Assessment Summary Airway patent Yes 06/30/24 09:34 PERSONNEL SECURITY [email or web address] Spontaneous unlabored Yes 06/30/24 09:34 PERSONNEL SECURITY [email or web address] respirations Mental status Awake,Calm 06/30/24 09:34 PERSONNEL SECURITY [email or web address] nausea No 06/30/24 09:34 PERSONNEL SECURITY [email or web address] Vomiting No 06/30/24 09:34 PERSONNEL SECURITY [email or web address] Anesthesia Postop Eval I: Fluid Summary Crystalloid volume administer 250 06/30/24 09:34 PERSONNEL SECURITY [email or web address] (ml) Colloids volume administered ( ml) Blood Product volume administered (ml) Total IV fluid infused 250 06/30/24 09:34 PERSONNEL SECURITY [email or web address] Anesthesia Postop Eval I: Summary Notes Anesthesia Complication Yes 06/30/24 09:34 PERSONNEL SECURITY [email or web address] Anesthesia Complication right nares with 06/30/24 09:34 PERSONNEL SECURITY [email or web address] Comment: epistaxis from npa Post-operative progress note Anesthesia: Postop Eval II Evaluation Mental status: Awake Pain Level: 2 nausea: No Vomiting: No
--- NOTE | 2024-06-30 10:15 | PCM.POSTANE2 ---
Anesthesia Postop Eval I Sum Postop Eval Completion status Anesthesia document: Postop Eval 1 completed: Yes Anesthesia Postop Eval I Summary Anesthesia Postop Eval I Summary: Anesthesia Postop Eval I: Assessment Summary Airway patent Yes 06/30/24 09:34 BLEND [email or web address] Spontaneous unlabored Yes 06/30/24 09:34 BLEND [email or web address] respirations Mental status Awake,Calm 06/30/24 09:34 BLEND [email or web address] nausea No 06/30/24 09:34 BLEND [email or web address] Vomiting No 06/30/24 09:34 BLEND [email or web address] Anesthesia Postop Eval I: Fluid Summary Crystalloid volume administer 250 06/30/24 09:34 BLEND [email or web address] (ml) Colloids volume administered ( ml) Blood Product volume administered (ml) Total IV fluid infused 250 06/30/24 09:34 BLEND [email or web address] Anesthesia Postop Eval I: Summary Notes Anesthesia Complication Yes 06/30/24 09:34 BLEND [email or web address] Anesthesia Complication right nares with 06/30/24 09:34 BLEND [email or web address] Comment: epistaxis from npa Post-operative progress note Anesthesia: Postop Eval II Evaluation Mental status: Awake Pain Level: 2 nausea: No Vomiting: No
== END 2024-06-30 11:41 | disposition home or self-care (01) ==
LOC: SDC 06:45 → AC 06:48
PROVIDERS: PCP Family Medicine; Referring Provider Surgery Trauma Surgery; Visit Provider Surgery Trauma Surgery
PROC: (CPT 36821; principal; 2024-06-30 07:15)
DX: Z45.2 Encounter for adjustment and management of vascular access device (principal); I12.0 Hypertensive chronic kidney disease with stage 5 chronic kidney disease or end stage renal disease; N18.6 End stage renal disease; E78.5 Hyperlipidemia, unspecified; Z99.2 Dependence on renal dialysis; I25.10 Atherosclerotic heart disease of native coronary artery without angina pectoris; Z95.1 Presence of aortocoronary bypass graft; Z95.2 Presence of prosthetic heart valve; Z95.5 Presence of coronary angioplasty implant and graft; Z79.82 Long term (current) use of aspirin; Z79.899 Other long term (current) drug therapy
CPT/HCPCS: 36821; 01844; A4648; A4216; J2405

== ENCOUNTER 2024-09-17 17:30 | Emergency (ER) | payer MEDICARE, OTHER, SELFPAY ==
[2024-09-17 17:30] VITALS: BP 117/72; PULSE 97; RESP 18; TEMP 36.7; O2SAT 97; BMI 23.6
[2024-09-17 21:30] VITALS: BP 101/56; PULSE 74; RESP 14; O2SAT 95
--- NOTE | 2024-09-17 21:56 | EDS_ITS ---
HPI History of Present Illness Chief Complaint: Back Detail of Chief Complaint: Patient presents with right-sided low back pain. Informant: patient Onset/Context/Timing Onset: Yesterday Context: Sudden Onset Injury: twisting Timing: Continuous Quality: Dull, Aching and Throbbing Location: Lumbar (Right side) Current Severity: Mild Maximum Severity: Severe Worsened by: improves with Movement and Bending Relieved by: Remaining Still Associated Symptoms Associated Symptoms: - (Denies saddle paresthesia or anesthesia. Denies radicular pain. Denies foot drop. Denies buckling of his knees going up and down steps.); Negative for Numbness, Tingling, Radiation to Right Leg, Radiation to Left Leg, Fever, Abdominal Pain, Dysuria, Unable to Ambulate, Unable to Transfer, Urinary Retention, Urinary Incontinence, Constipation or Fecal Incontinence Narrative Narrative: Patient is a 69-year-old male. He drove himself to the emergency department. He presents because of right-sided low back pain. Eyes radicular pain. He is numbness of his right lower extremity. [place] bowel bladder dysfunction. No saddle paresthesia anesthesia. No symptoms of claudication. He does need to use a wheelchair at times. He walks with a cane. Patient does not have history of back issues. He was seen in the past at urgent care and prescribed muscle relaxant for his back pain. He is not a candidate for NSAIDs because of history of thrombocytopenia and the fact he is on long- term anticoagulant and has end-stage renal disease. Prior similar symptoms: Yes Recent Illness/Hospitalization: No PFSH PFS Medical History Thrombocytopenia Wears glasses Cancer Cancer Pressure ulcer History of renal dialysis History of renal disease Injury of back History of GI bleed Gastric reflux Shortness of breath on exertion History of stress test History of echocardiogram Cardiology follow-up encounter Thrombus of venous dialysis catheter ESRD (end stage renal disease) on dialysis Acute respiratory insufficiency Medical non-compliance Acute exacerbation of chronic heart failure Chronic kidney disease (CKD) Pleural effusion Dyspnea Acute kidney injury Adenocarcinoma of esophagus LEELA (acute kidney injury) Non-smoker Esophageal carcinoma Atherosclerosis of coronary artery of [place] heart without angina pectoris 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 Essential (primary) hypertension Non-rheumatic aortic stenosis Syncope and collapse Hyperlipidemia Atherosclerotic heart disease of [place] coronary artery with other forms of angina pectoris Encounter for long-term current use of high risk medication abnormal stress test Angina pectoris Exertional chest pain Home Medications ?Medication ?Instructions ?Recorded ?Last Taken ?Type atorvastatin 80 mg tablet 80 mg PO QHS CHOLESTEROL #90 tabs 05/15/22 12/24/23 Rx ezetimibe 10 mg tablet 10 mg PO DAILY CHOLESTEROL # 90 tabs 05/15/22 12/24/23 Rx metoprolol tartrate 25 mg tablet 25 mg PO BID #0 tabs 10/25/23 06/30/24 05:30 Rx pantoprazole 40 mg tablet,delayed 40 mg PO BID #0 tabs 10/25/23 06/30/24 05:30 Rx release ferrous sulfate 325 mg (65 mg 325 mg PO DAILY #90 tabs 11/20/23 06/29/24 Rx iron) tablet polyethylene glycol 3350 17 17 g PO DAILY PRN constipa tion 12/04/23 Unknown History gram/dose oral powder (Miralax) ondansetron 4 mg disintegrating 4 mg PO Q8H PRN PRN na usea and 12/25/23 12/25/23 08:00 History tablet vomiting nitroglycerin 0.4 mg sublingual 0.4 mg sublingual PRN PRN angina 02/14/24 Unknown History tablet aspirin 81 mg chewable tablet 81 mg PO BID #0 tabs 01/3006/29/24 Rx acetaminophen 500 mg tablet 1,000 mg PO Q8 PRN pain Unknown History amoxicillin 500 mg tablet 2,000 mg (4 x 500 mg) PO ONC E #4 04/29/24 Unknown Rx tabs oxycodone 5 mg tablet 5 mg PO Q8H PRN pain 2 days #6 tabs 06/30/24 Unknown Rx oxycodone-acetaminophen 5 mg-325 1 tab PO Q6H PRN PRN pain 5 days 09/17/24 Unknown Rx mg tablet #20 TABLETS Allergy/AdvReac Type Severity Reaction Status Date / Time No Known Allergies Allergy Verified 09/17/24 17:30 Family History Father Heart disease Myocardial infarction Hypertension Brother Hypertension Sister Heart disease Myocardial infarction Surgical History History of hip replacement (~02/2024) History of cardiac catheterization History of esophagogastroduodenoscopy (EGD) Hx of surgical procedure History of aortic valve replacement (03/03/19) History of coronary artery stent placement (12/31/18) H/O coronary artery bypass surgery (09/18/02) History of tonsillectomy History of hernia repair Social History Smoking Status: Never smoker alcohol intake: never substance use type: does not use caffeine: No what type of physical activity do you participate in: walking frequency: daily ROS ROS ED Constitutional Constitutional ED: Denies chills, fever(s), subjective or sweats Cardiovascular Cardiovascular: Denies chest pain Respiratory/Chest Respiratory/Chest: Denies dyspnea or dyspnea on exertion Gastrointestinal Gastrointestinal: Denies abdominal pain, constipation, diarrhea, nausea or vomiting Genitourinary Genitourinary ED: Denies dysuria, hematuria or urinary frequency Musculoskeletal Musculoskeletal: Reports back pain Neurologic Neurologic: Denies paresthesias or weakness Hematologic/Lymphatic Hematologic/Lymphatic: Reports easy bleeding and easy bruising EXAM Physical Exam Const Vital Signs: 09/17/24 17:30 Temperature 98.0 F Temperature Source Oral Pulse Rate 97 Respiratory Rate 18 Blood Pressure 117/72 Blood Pressure Mean 87 Pulse Ox 97 Oxygen Delivery Method Room Air Positive well nourished General Appearance ED: NAD HEENT Reports moist mucous membranes HEENT Narrative: Head is atraumatic and normocephalic. Ears normal. Eyes PERRL and EOMs intact bilaterally General Eye ED: Yes pale conjunctiva; Negative for scleral icterus Resp normal respiratory effort Cardio regular rate and regular rhythm GI normal to inspection, nondistended, normoactive bowel sounds, soft to palpation, non-tender, non-distended and no masses Back/Spine normal to inspection; Negative for no thoracic nor lumbar tenderness Back/Spine Narrative: Tenderness right paralumbar region. Thoracic Spine / Upper Back: paraspinal muscle tenderness Lumbar Spine / Lower Back: ROM limited and straight leg raise negative bilaterally Extremity normal to inspection and no clubbing, cyanosis or edema Extremity Narrative: DP pulses palpable bilateral. Patient does have a significant ecchymotic area left upper extremity. This was due to infiltration of the dialysis needle when his fistula was cannulated. Neuro oriented x3 and no sensory deficits noted Neuro Narrative: EHLs intact. Normal sensation L3-S1 dermatome. 5/5 strength plantar dorsiflexion of his foot. Sensorium / Orientation: alert Motor Exam: strength 5/5 throughout Deep Tendon Reflexes: Rt Patellar (L4): 1+, Lt Patellar (L4): 1+, Rt Ankle (S1): 1+ and Lt Ankle (S1): 1+ Deep Tendon Reflexes Back: Rt Patellar (L4): 1+, Lt Patellar (L4): 1+, Rt Ankle (S1): 1+ and Lt Ankle (S1): 1+ Plantar Reflex: Downgoing: bilateral (There is no clonus at the ankle right or left.) Psych mental status grossly normal Skin Skin Narrative: Patient has multiple superficial cuts that are healing without evidence of infection. MDM MDM MDM Narrative Medical decision making narrative: Patient's history and physical is consistent with muscular pain. There is no concern for cauda equina. There is no concern for spontaneous epidural hematoma or risk factors for epidural abscess. Patient has no radicular findings. He has a normal neurologic exam. Will treat with open analgesics since NSAIDs are contraindicated. Prior records were reviewed. History & Record Review Additional record(s) reviewed:: Prior outpatient record (Reviewed external correspondence for AV fistula for dated September 02, 2024. Patient was admitted for end-stage renal disease and fistula placement June by Dr. Nikita Jackson. Patient was admitted to the hospital in February 2020 for.) Treatment and Re-Evaluation Narrative: Since patient drove himself he had his prescription filled here he would be able to take the medicine at home. He does not have anyone that can pick him up. 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, End-stage renal disease on hemodialysis Instructions: ED Back Sprain/Strain Prescriptions: New oxycodone-acetaminophen 5-325 mg tablet 1 tab PO Q6H PRN PRN (Reason: pain) 5 Days Qty: 20 0RF No Action atorvastatin 80 mg tablet 80 mg PO QHS Qty: 90 3RF ezetimibe 10 mg tablet 10 mg PO DAILY Qty: 90 3RF ferrous sulfate 325 mg (65 mg iron) tablet 325 mg PO DAILY Qty: 90 3RF acetaminophen 500 mg tablet 1,000 mg PO Q8 PRN (Reason: pain) Rx Instructions: Take Tylenol this way for 5 to 7 days postoperatively and then okay to go back and use as needed amoxicillin 500 mg tablet 2,000 mg PO ONCE Qty: 4 0RF Rx Instructions: Take one hour prior to dental cleanings/procedure metoprolol tartrate 25 mg Tablet 25 mg PO BID Qty: 0 0RF pantoprazole 40 mg Tablet,Delayed Release (Dr/Ec) 40 mg PO BID Qty: 0 0RF polyethylene glycol 3350 [Miralax] 17 gram/dose powder 17 g PO DAILY PRN (Reason: constipation) ondansetron 4 mg tablet,disintegrating 4 mg PO Q8H PRN PRN (Reason: nausea and vomiting) oxycodone 5 mg tablet 5 mg PO Q8H PRN (Reason: pain) 2 Days Qty: 6 0RF nitroglycerin 0.4 mg tablet, sublingual 0.4 mg sublingual PRN PRN (Reason: angina) aspirin 81 mg Tablet,Chewable 81 mg PO BID Qty: 0 0RF Rx Instructions: Take for 30 days postop and then okay to discontinue Primary Care Provider: Yaw Singh Referrals: Yaw Singh MD [Primary Care Provider] - 1 Week if not improving Activity Restrictions/Additional Instructions: 1. Apply ice to your lower back 6-8 times a day for the next 3 to 5 days 2. Take medication as prescribed 3. If you are unable to urinate, loss of bowel control dragging your foot or or your knee [place] when you go up and down steps return to the emergency department immediately. Print Language: Mexican Disposition Disposition: Home, Self Care
[2024-09-17 22:19] VITALS: BP 101/56; PULSE 74; RESP 14; TEMP 36.8; O2SAT 95
== END 2024-09-17 22:20 | disposition home or self-care (01) ==
PROVIDERS: Emergency Provider Emergency Medicine; PCP Family Medicine; Visit Provider Emergency Medicine
DX: S39.012A Strain of muscle, fascia and tendon of lower back, initial encounter (principal); I12.0 Hypertensive chronic kidney disease with stage 5 chronic kidney disease or end stage renal disease; N18.6 End stage renal disease; X58.XXXA Exposure to other specified factors, initial encounter; D69.6 Thrombocytopenia, unspecified; I25.810 Atherosclerosis of coronary artery bypass graft(s) without angina pectoris; E78.5 Hyperlipidemia, unspecified; Z99.2 Dependence on renal dialysis; Z95.5 Presence of coronary angioplasty implant and graft; Z79.01 Long term (current) use of anticoagulants; Z79.82 Long term (current) use of aspirin; Z79.899 Other long term (current) drug therapy
CPT/HCPCS: 99282

== ENCOUNTER 2024-10-15 09:01 | Day surgery (SDC) | payer MEDICARE, OTHER, SELFPAY ==
[2024-10-14 09:21] VITALS: BMI 23.8
--- NOTE | 2024-10-15 10:22 | PCM.HP.STD ---
HPI - General HPI Narrative NICKO ROSALES, is a 69 M who presents with ESRD currently using a left upper arm AV fistula without issue. He has a prior left IJ tunneled catheter he is no longer using and presents for removal. [facility] Medical History Thrombocytopenia Wears glasses Cancer Cancer Pressure ulcer History of renal dialysis History of renal disease Injury of back History of GI bleed Gastric reflux Shortness of breath on exertion History of stress test History of echocardiogram Cardiology follow-up encounter Thrombus of venous dialysis catheter ESRD (end stage renal disease) on dialysis Acute respiratory insufficiency Medical non-compliance Acute exacerbation of chronic heart failure Chronic kidney disease (CKD) Pleural effusion Dyspnea Acute kidney injury Adenocarcinoma of esophagus LEELA (acute kidney injury) Non-smoker Esophageal carcinoma Atherosclerosis of coronary artery of [place] heart without angina pectoris 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 Essential (primary) hypertension Non-rheumatic aortic stenosis Syncope and collapse Hyperlipidemia Atherosclerotic heart disease of [place] coronary artery with other forms of angina pectoris Encounter for long-term current use of high risk medication abnormal stress test Angina pectoris Exertional chest pain Home Medications ?Medication ?Instructions ?Recorded ?Last Taken ?Type atorvastatin 80 mg tablet 80 mg PO QHS CHOLESTEROL #90 tabs 05/15/22 12/24/23 Rx ezetimibe 10 mg tablet 10 mg PO DAILY CHOLESTEROL #90 tabs 05/15/22 12/24/23 Rx metoprolol tartrate 25 mg tablet 25 mg PO BID #0 tabs 10/25/23 06/30/24 05:30 Rx pantoprazole 40 mg tablet,delayed 40 mg PO BID #0 tabs 10/25/23 06/30/24 05:30 Rx release ferrous sulfate 325 mg (65 mg 325 mg PO DAILY #90 tabs 11/20/23 06/29/24 Rx iron) tablet polyethylene glycol 3350 17 17 g PO DAILY PRN constipation 12/04/23 Unknown History gram/dose oral powder (Miralax) ondansetron 4 mg disintegrating 4 mg PO Q8H PRN PRN nausea and 12/25/23 12/25/23 08:00 History tablet vomiting nitroglycerin 0.4 mg sublingual 0.4 mg sublingual PRN PRN angina 02/14/24 Unknown History tablet aspirin 81 mg chewable tablet 81 mg PO BID #0 tabs 02/17/24 06/29/24 Rx acetaminophen 500 mg tablet 1,000 mg PO Q8 PRN pain 04/29/24 Unknown History amoxicillin 500 mg tablet 2,000 mg (4 x 500 mg) PO ONCE #4 04/29/24 Unknown Rx tabs oxycodone 5 mg tablet 5 mg PO Q8H PRN pain 2 days #6 tabs 06/30/24 Unknown Rx oxycodone-acetaminophen 5 mg-325 1 tab PO Q6H PRN PRN pain 5 days 09/17/24 Unknown Rx mg tablet #20 TABLETS Allergy/AdvReac Type Severity Reaction Status Date / Time No Known Allergies Allergy Verified 09/17/24 17:30 Family History Father Heart disease Myocardial infarction Hypertension Brother Hypertension Sister Heart disease Myocardial infarction Surgical History History of hip replacement (~02/2024) History of cardiac catheterization History of esophagogastroduodenoscopy (EGD) Hx of surgical procedure History of aortic valve replacement (03/03/19) History of coronary artery stent placement (12/31/18) H/O coronary artery bypass surgery (09/18/02) History of tonsillectomy History of hernia repair Social History Smoking Status: Never smoker alcohol intake: never substance use type: does not use caffeine: No what type of physical activity do you participate in: walking frequency: daily ROS Constitutional Constitutional: Denies chills, fever(s), frequent falls, lethargy or weakness Eyes Eyes: Denies blind spots, change in vision or loss of vision ENT HEENT: Denies bleeding gums, hoarseness or sore throat Cardiovascular Cardiovascular: Denies abdominal pain, bluish discoloration of hand/feet, chest pain with activity, claudication, cold extremities, cyanosis, dyspnea on exertion, erythema on extremities, irregular heart rhythm, leg edema, leg ulcers, numbness in extremities or weakness in extremities Respiratory/Chest Respiratory/Chest: Denies cough, excessive phlegm production, shortness of breath at rest, shortness of breath with exertion or wheezing Gastrointestinal Gastrointestinal: Denies anorexia, change in stool character, constipation, diarrhea, melena or rectal bleeding Genitourinary Genitourinary: Denies dysuria or hematuria Musculoskeletal Musculoskeletal: Denies abnormal gait Integumentary Integumentary: Reports other Details: ; Denies erythema, non-healing lesions or wounds Neurologic Neurologic: Denies abnormal speech, focal weakness, headache(s), loss of vision, numbness, paresthesias or sensory deficit Hematologic/Lymphatic Hematologic/Lymphatic: Denies easy bleeding, easy bruising or lymphadenopathy Vital Signs Vital Signs Vital Signs: Weight Weight: 161 lb Body Mass Index (BMI) 23.8 Physical Exam Const alert, oriented x3, no apparent distress and healthy appearing General Appearance: cooperative; Negative for combative or lethargic Orientation / Consciousness: awake Exam Limitations: no limitations HEENT Head and Scalp: normocephalic and atraumatic Eyes EOMs intact bilaterally General Eye: normal appearance of both eyes Neck full ROM General: trachea midline Resp normal respiratory effort and no use of accessory muscles Effort and Inspection: Negative for labored, stridor or audible wheezes Cardio regular rate and regular rhythm Peripheral Pulses: brachial pulses present and radial pulses present Back/Spine Cervical Spine: cervical ROM normal Extremity full ROM, normal capillary refill and no clubbing, cyanosis or edema Skin no rashes or lesions noted and no wounds Neuro oriented x3, CN's II-XII intact bilaterally, no focal motor deficits and no sensory deficits noted Psych thought process normal, cooperative, affect normal, speech normal and activity/motor behavior normal Assessment & Plan Assessment/Plan (1) Tunneled central venous catheter present: PLAN: -remove catheter
--- NOTE | 2024-10-15 14:34 | OP.PCM_ITS ---
Operative Report (Standard) Operative Information Date of Procedure: 10/15/24 Pre-Operative Diagnosis: End-stage renal disease currently on dialysis via left upper arm fistula Left IJ tunneled catheter no longer in use Post-Operative Diagnosis: Same Surgery/Procedure Performed: Removal left IJ tunneled catheter cobol application developer: No Type of Anesthesia: Local and Sedation,Conscious Procedure Start Time: 10:45 Procedure Stop Time: 10:55 Select all DRAINS/GRAFTS/IMPLANTS that apply: None Estimated Blood Loss: 1 Specimen collected: No Description of surgery: HPI: Patient is a 69-year-old male with end-stage renal disease currently dialysis via a new left upper extremity AV fistula. He presents now for catheter removal. Description of procedure: Upon obtaining informed consent and verification rate patient procedure site the patient was taken to the Backwinder he was positioned prepped and draped in usual sterile fashion. Timeouts performed and conscious sedation ministered Versed and fentanyl. The cuff of the prior tunneled catheter was then identified and marked and the area surrounding anesthetized 1% lidocaine. This was in close proximity to the skin exit site of the catheter so blunt dissection was utilized to mobilize the catheter and cuff via the skin exit site. Once all of the attached connective tissue was divided the catheter was withdrawn and manual pressure held over the venous entry site for 10 minutes until hemostasis was observed. A dry sterile dressing was then applied and the patient awakened from his sedation and taken to the recovery area with plan discharged to home. Surgical Findings: Intact catheter removed, no fragments remaining on completion fluoroscopy Complications Complications: No
== END 2024-10-15 12:46 | disposition home or self-care (01) ==
PROVIDERS: PCP Family Medicine; Referring Provider Surgery Trauma Surgery; Visit Provider Surgery Trauma Surgery
DX: Z45.2 Encounter for adjustment and management of vascular access device (principal); I12.0 Hypertensive chronic kidney disease with stage 5 chronic kidney disease or end stage renal disease; N18.6 End stage renal disease; E78.5 Hyperlipidemia, unspecified; Z95.5 Presence of coronary angioplasty implant and graft; Z99.2 Dependence on renal dialysis; Z79.82 Long term (current) use of aspirin; Z79.899 Other long term (current) drug therapy
CPT/HCPCS: 36589; 99152

== ENCOUNTER → 2024-11-26 | Outpatient (CLI) | payer MEDICARE, OTHER, SELFPAY ==
--- NOTE | 2024-11-26 10:05 | BD_ITS ---
PROCEDURE: DEXA BONE DENSITY STUDY 11/26/2024 REASON FOR EXAM: OSTEOPOROSIS M, age 69 y/o . Postmenopausal. TECHNIQUE: DEXA BONE DENSITY STUDY COMPARISON: None FINDINGS: BMD and T-SCORES Lumbar spine: 0.811 g/cm2, T-score -2.5 Levels: L1 through L4 Right femoral neck: 0.543 g/cm2, T-score -2.8 Femoral neck comparison data not recommended for monitoring change. Right total hip: 0.606 g/cm2, T-score -2.8 The World Health Organization has defined the following categories based on bone density: Normal bone density: T-score equal to or greater than -1.0 Osteopenia: T-score between -1.0 and -2.5 Osteoporosis: T-score equal to or less than -2.5 FRAX (or Comparable) Fracture Risk Assessment: 10 Year Probability of Fracture: Major Osteoporotic Fracture: 19% Hip Fracture: 7.2% (Note: FRAX is not to be reported in setting of normal range bone density, osteoporosis on DEXA, known history of osteoporosis, prior osteoporotic hip or vertebral fracture, or for any patient undergoing pharmacological treatment for bone loss.) The National Osteoporosis Foundation (NOF) recommends pharmacological treatment for patients with a FRAX 10-year risk of 3% or higher for a hip fracture, or 20% or higher for a major osteoporotic fracture, to prevent osteoporosis and reduce fracture risk. The patient does meet the pharmacological treatment recommendations for prevention of osteoporosis. BD/Dexa Bone Density Study IMPRESSION: OSTEOPOROSIS. Recommend follow-up as clinically warranted. Reading Location: [facility]
== END | disposition home or self-care (01) ==
LOC: OPBD 09:52
PROVIDERS: PCP Family Medicine; Referring Provider Student in an Organized Health Care Education/Training Program; Visit Provider Student in an Organized Health Care Education/Training Program
DX: M81.0 Age-related osteoporosis without current pathological fracture (principal)
CPT/HCPCS: 77080

== ENCOUNTER → 2024-12-03 | Outpatient (CLI) | payer MEDICARE, OTHER, SELFPAY ==
--- NOTE | 2024-12-03 11:06 | MRI_ITS ---
PROCEDURE: SPINE LUMBAR (ROUTINE) 12/03/2024 REASON FOR EXAM: PAIN, COMPRESSION FX, DDD TECHNIQUE: Procedure Code: MRISPL Modality: MR Procedure: SPINE LUMBAR (ROUTINE) FINDINGS: Multiple chronic appearing compression deformities are present such as at L5, L3, L2 and L1. However, there is a more recent compression deformity of T12 with concavity of the superior endplate and edema on inversion recovery images. Quite minimal central edema is seen at L3 which could indicate ongoing microfracture. Normal conus. No retroperitoneal mass. T11-12 is unremarkable. T12-L1 is negative for spinal stenosis. L1-L2 demonstrates no significant spinal canal narrowing. At L2-3 no central or foraminal compromise. At L3-4 no central or foraminal compromise At L4-5 mild canal narrowing from concentric annular bulge with mild inferior foraminal narrowing on the left L5-S1 unremarkable. MRI/Spine Lumbar (Routine) IMPRESSION: Chronic compression deformities. Judging by inversion recovery signal, the fra cture at T12 appears more recent. Reading Location: [facility]
== END | disposition home or self-care (01) ==
LOC: MRI 10:54
PROVIDERS: PCP Family Medicine; Referring Provider Student in an Organized Health Care Education/Training Program; Visit Provider Student in an Organized Health Care Education/Training Program
DX: S32.010A Wedge compression fracture of first lumbar vertebra, initial encounter for closed fracture (principal); S32.020A Wedge compression fracture of second lumbar vertebra, initial encounter for closed fracture; S32.030A Wedge compression fracture of third lumbar vertebra, initial encounter for closed fracture; S32.040A Wedge compression fracture of fourth lumbar vertebra, initial encounter for closed fracture; S32.050A Wedge compression fracture of fifth lumbar vertebra, initial encounter for closed fracture; X58.XXXA Exposure to other specified factors, initial encounter; M51.369 Other intervertebral disc degeneration, lumbar region without mention of lumbar back pain or lower extremity pain
CPT/HCPCS: 72148

== ENCOUNTER → 2025-01-22 | Outpatient (CLI) | payer MEDICARE, OTHER, SELFPAY ==
--- NOTE | 2025-01-22 12:44 | AVDS_ITS ---
Reason For Study Reason For Study: ESRD LEFT Brachiocephalic AVF Inflow, 277.0/142.5 cm/sec. Inflow, 2537 ml/min. Anastomosis, 330.1/192.3 cm/sec. Anastomosis, 1403 ml/min. Prox Graft, 175.3/69.0 cm/sec. Prox Graft, 3173 ml/min. Mid Graft, 121.1/55.3 cm/sec. Mid Graft, 1960 ml/min. Dist Graft, 90.0/55.6 cm/sec. Dist Graft, 1856 ml/min. Outflow, 240.5/142.4 cm/sec. Outflow, 1956 ml/min. VL/AV Fistula/Dialysis Graft Scan Interpretation Summary Left upper extremity fistula patent with satisfactory flow volume, depth and ca liber throughout with no stenosis visualized. Ordering Physician: Maggie Mosquera Referring Physician: Yaw Singh MD Performed By: Lynne York RVT
== END | disposition home or self-care (01) ==
LOC: CVS 12:44
PROVIDERS: PCP Family Medicine; Referring Provider Physician Assistant; Visit Provider Physician Assistant
DX: N18.6 End stage renal disease (principal); Z99.2 Dependence on renal dialysis
CPT/HCPCS: 93990

== ENCOUNTER 2025-01-23 08:30 | Outpatient (RCR) | payer MEDICARE, OTHER, SELFPAY ==
--- NOTE | 2024-12-24 10:10 | HP.PTEVAL ---
Patient's Visit Information Visit Information Visit Information: NICKO ROSALES is a 69 year old M referred to Physical Therapy by Dr. Kody Fragoso MD with a diagnosis of L3 COMPRESSION FX ,T12 COMPRESSION FX. Date of Evaluation: 12/24/24 Physical Therapist: Derrick Neves, PT, Cert MDT, OCS Visit Plan Frequency: 2x /Week Duration: 4 Weeks Plan: T12 and L3 COMPRESSION FX HAS OSTEOPOROSIS PT INTERVENTIONS DLS ,POSTURAL EX'S ,BLE STRENGTHENING ,FUNCTIONAL STRENGTHENING AND PATIENT EDUCATION Subjective Subjective: This 69 y/o male presents to physical therapy with T12 compression fracture ,L3 compression fracture. Patient states that he was in the shower, and was picking up a bottle of shampoo. When he bent forward to pick the bottle of shampoo up he felt a sharp pulling pain in the lower back. He denies any pain into the legs. Says that he has a lot of midline lower back pain and pain that goes towards the right side of the lower back. Patient states that he went to the [place] [facility] the same day. Patient had MRI Multiple chronic appearing compression deformities are present such as at L5, L3, L2 and L1. However, there is a more recent compression deformity of T12 with concavity of the superior endplate and edema on inversion recovery images. Seen Dennis Ibarra recommended pain management ,seen Fouzia recommended PT . Bone density osteoporosis. He currently uses a cane to help him balance, and walk. Patient states that he tries not to use his cane all the time. He has been using it for the last 2-3 weeks. He is not currently on any chemo or radiation treatment for the esophageal cancer. Says that he does have chronic kidney disease and is on dialysis 3 days a week. He is on the kidney transplant list. Reports that he did have a fall in 2023 that broke his left hip and had a hemiarthroplasty done at that time. Says he has not had any current falls since then. Patient also reports a recent 50 pound weight loss over the last 6 months. Says that he has recently seen the oncologist . Medication Hydrocodone. Patient has no pain . Patient has weakness. Patient denies paresthesia/tingling -. Aggravating standing /walking ,.unable to lift/bending. Alleviating rest. Coughing/sneezing+ .Bowel/bladder-. Patient started using cane after injury. Patient condition affects QOL and function SOCAIl: Objective Objective: POSTURE: mod thoracic kyphosis GAIT: reciprocal pattern 2 point gait with slow megan hips/knees flexed mod thoracic kyphosis PALPATION: unremarkable SYMMETRICAL: slight scoliosis NEURO: denies paresthesia/tingling MMT: quads/hams 4/5 hip flexion 4-/5 ,ankle 4/5 FLEXABILITY: hamstrings mod tight Special Tests L/S Slump test left side: Negative L/S Slump test right side: Negative L/S Left Straight Leg Raise: Negative L/S Right Straight Leg Raise: Negative Balance/Special Test Scores Oswestry Low Back Score: 30 Goals Goal 1:: Patient to be I with HEP for osteoporosis program Goal Time Frame: 4-6 Weeks Goal 2:: Patient to improve lumbar ROM for function of recovery for ADL's Goal Time Frame: 4-6 Weeks Goal 3:: Patient to ambulate with/without cane community distance with less pain 70% Goal Time Frame: 4-6 Weeks Goal 4:: Patient be able to perform ADL's and housework tasks with min limitations with less pain by 50% Goal Time Frame: 4-6 Weeks Goal 5:: Patient to improve back oswestry score by 5 points to improve QOL and function Rehabilitation Potential Physical Therapy Diagnosis: This patent has compression with pain ,weakness ,decrease gait, poor lumbar ROM thus benefit from skilled PT Rehabilitation Potential: Fair Anticipated Interventions Patient/Client Instruction: Educate patient on: Condition and Plan of Care For the Purpose of:: To decrease pain, To improve muscle performance and motor function, To improve ability to perform ADL's, To increase tolerance to activity/condition/position, To improve performance and independence with ADL's, To improve ability of physical actions for home/community/work/leisure, To improve gait and locomotor functions, To improve endurance, To improve balance and To improve tolerance to ADL's Therapeutic Exercise to Include: Strength training, Endurance training, Balance training, Postural training, Flexibilty training and Dynamic Lumbar Stabilization Comment: QUADS/HAMS/HIP For the Purpose of:: To decrease pain, To improve muscle performance and motor function, To increase tolerance to activity/condition/position, To improve ability of physical actions for home/community/work/leisure, To improve gait and locomotor functions, To increase flexibility/ROM, To improve endurance, To improve balance and To improve tolerance to ADL's Text: Thank you for the opportunity to evaluate your patient. For Medicare and Medicare HMO plans, please review the plan of care and approve it. It will need to be FAXED BACK to us at [phone] for Medicare purposes. For Medicare only, by signing this I certify the plan of care. Please let me know if there are questions or concerns regarding this plan of care. Physician Signature: Date:
--- NOTE | 2025-02-05 09:52 | HP.PTDCSUM_ITS ---
Discharge Summary D/C summary: It has been my pleasure to treat NICKO ROSALES referred by Dr. Kody Fragoso MD, with the diagnosis of L3 COMPRESSION FX ,T12 COMPRESSION FX for a total of 7 visit(s). Discharge Date: Please see the following information for a summary of their discharge status. Subjective Subjective: See Family PLan to Dr Fragoso Nov 4th Pain LEFT UE: Pain Intensity (Out of 10): 3 Objective Objective/Function: POSTURE: mod thoracic kyphosis GAIT: reciprocal pattern 2 point gait with slow megan hips/knees flexed mod thoracic kyphosis ( no cane in house) PALPATION: unremarkable SYMMETRICAL: slight scoliosis NEURO: denies paresthesia/tingling MMT: quads/hams 4/5 hip flexion 4-/5 ,ankle 4/5 FLEXABILITY: hamstrings mod tight Goals Goal 1:: Patient to be I with HEP for osteoporosis program Goal Progress: Progressing Goal 2:: Patient to improve lumbar ROM for function of recovery for ADL's Goal Progress: Progressing Goal 3:: Patient to ambulate with/without cane community distance with less pain 70% Goal Progress: Progressing Goal 4:: Patient be able to perform ADL's and housework tasks with min limi tations with less pain by 50% Goal Progress: Progressing Goal 5:: Patient to improve back oswestry score by 5 points to improve QOL and function Goal Progress: Progressing Plan Plan: RTD D/C Information d/c sentence: If there are questions or concerns regarding this patient's physical therapy, please feel free to call me at [phone]. Thank you for the referral of this patient. Sincerely, Derrick Neves, PT, Cert MDT, OCS Balance/Gait/Functional tests Balance/Special Test Scores Oswestry Low Back Score: 30
== END 2025-01-23 19:00 | disposition home or self-care (01) ==
LOC: PT 08:30
PROVIDERS: PCP Family Medicine; Referring Provider Anesthesiology; Visit Provider Anesthesiology
DX: S22.080D Wedge compression fracture of T11-T12 vertebra, subsequent encounter for fracture with routine healing (principal); S32.030D Wedge compression fracture of third lumbar vertebra, subsequent encounter for fracture with routine healing
CPT/HCPCS: 97110; 97162; 97530

== ENCOUNTER 2025-01-30 12:48 | Emergency (ER) | payer MEDICARE, OTHER, SELFPAY ==
[2025-01-30 12:50] VITALS: BP 118/75; PULSE 77; RESP 18; TEMP 36.6; O2SAT 97
[2025-01-30 12:58] VITALS: BMI 24.3
[2025-01-30 13:00] VITALS: BP 103/88; PULSE 80; RESP 16; O2SAT 100
--- NOTE | 2025-01-30 13:24 | EX.ED.DYSGE1 ---
HPI History of Present Illness Chief Complaint: Hypotension Narrative Narrative: Patient is a 69-year-old male presenting emergency department for hypotension reportedly at his dialysis appointment. Patient has a past medical history as below including CKD on dialysis Sunday however he missed his dialysis yesterday because he was having diarrhea. States he had about 4-5 episodes of nonbloody diarrhea. States he felt fine otherwise. States he felt normal today when he went to his make up dialysis appointment and they noted that he was hypotensive and gave him 2 L of fluids. They then sent him here for evaluation. Patient denies fever, chills, chest pain, shortness of breath, abdominal pain, nausea, vomiting, diarrhea today. Denies any dysuria or hematuria. [facility] Medical History Thrombocytopenia Wears glasses Cancer Cancer Pressure ulcer History of renal dialysis History of renal disease Injury of back History of GI bleed Gastric reflux Shortness of breath on exertion History of stress test History of echocardiogram Cardiology follow-up encounter Thrombus of venous dialysis catheter ESRD (end stage renal disease) on dialysis Acute respiratory insufficiency Medical non-compliance Acute exacerbation of chronic heart failure Chronic kidney disease (CKD) Pleural effusion Dyspnea Acute kidney injury Adenocarcinoma of esophagus LEELA (acute kidney injury) Non-smoker Esophageal carcinoma Atherosclerosis of coronary artery of [place] heart without angina pectoris 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 Essential (primary) hypertension Non-rheumatic aortic stenosis Syncope and collapse Hyperlipidemia Atherosclerotic heart disease of [place] coronary artery with other forms of angina pectoris Encounter for long-term current use of high risk medication abnormal stress test Angina pectoris Exertional chest pain Home Medications ?Medication ?Instructions ?Recorded ?Last Taken ?Type atorvastatin 80 mg tablet 80 mg PO QHS CHOLESTEROL #90 tabs 05/15/22 12/24/23 Rx ezetimibe 10 mg tablet 10 mg PO DAILY CHOLESTEROL #90 tabs 05/15/22 12/24/23 Rx metoprolol tartrate 25 mg tablet 25 mg PO BID #0 tabs 10/25/23 06/30/24 05:30 Rx pantoprazole 40 mg tablet,delayed 40 mg PO BID #0 tabs 10/25/23 06/30/24 05:30 Rx release ferrous sulfate 325 mg (65 mg 325 mg PO DAILY #90 tabs 11/20/23 06/29/24 Rx iron) tablet polyethylene glycol 3350 17 17 g PO DAILY PRN constipation 12/04/23 Unknown History gram/dose oral powder (Miralax) ondansetron 4 mg disintegrating 4 mg PO Q8H PRN PRN nausea and 12/25/23 12/25/23 08:00 History tablet vomiting nitroglycerin 0.4 mg sublingual 0.4 mg sublingual PRN PRN angina 02/14/24 Unknown History tablet aspirin 81 mg chewable tablet 81 mg PO BID #0 tabs 02/17/24 06/29/24 Rx acetaminophen 500 mg tablet 1,000 mg PO Q8 PRN pain 04/29/24 Unknown History amoxicillin 500 mg tablet 2,000 mg (4 x 500 mg) PO ONCE #4 04/29/24 Unknown Rx tabs oxycodone 5 mg tablet 5 mg PO Q8H PRN pain 2 days #6 tabs 06/30/24 Unknown Rx oxycodone-acetaminophen 5 mg-325 1 tab PO Q6H PRN PRN pain 5 days 09/17/24 Unknown Rx mg tablet #20 TABLETS Allergy/AdvReac Type Severity Reaction Status Date / Time No Known Allergies Allergy Verified 01/30/25 12:52 Family History Father Heart disease Myocardial infarction Hypertension Brother Hypertension Sister Heart disease Myocardial infarction Surgical History History of hip replacement (~02/2024) History of cardiac catheterization History of esophagogastroduodenoscopy (EGD) Hx of surgical procedure History of aortic valve replacement (03/03/19) History of coronary artery stent placement (12/31/18) H/O coronary artery bypass surgery (09/18/02) History of tonsillectomy History of hernia repair Social History Smoking Status: Never smoker alcohol intake: never substance use type: does not use caffeine: No what type of physical activity do you participate in: walking frequency: daily ROS ROS ED ROS Narrative see HPI EXAM Physical Exam Narrative Exam Narrative: Vital signs: Reviewed General: Alert and orientedx3. No acute distress HEENT: Head is normocephalic and atraumatic, sinuses nontender, pupils equal round and reactive. Nares are patent. Oropharynx and throat exams normal. Neck: Supple without lymphadenopathy nontender Cardiovascular: Regular rate and rhythm, no murmurs. No rubs or gallops. Normal S1 and S2 Respiratory: Clear to auscultation bilaterally. No wheezes, rales, rhonchi Abdominal: Soft and nontender. Normal bowel sounds. No guarding or rebound. Nonsurgical abdomen Extremities: Fistula in left upper extremity, palpable thrill felt. Mild swelling to the left arm with no erythema or warmth. Radial and DP/PT pulses are 2+ and symmetric throughout. No lower extremity edema. No tenderness. No bruising. Normal range of motion. Normal sensation. Skin: No rash or redness. Neurological: Cranial nerves II through XII are grossly intact. Normal strength and sensation. Normal cerebellar function The rest of the physical exam is unremarkable Const Vital Signs: 01/30/25 12:50 01/30/25 13:00 01/30/25 13:00 Temperature 97.8 F Temperature Source Oral Pulse Rate 77 80 Respiratory Rate 18 16 Respiratory Pattern Normal Blood Pressure 118/75 103/88 H Blood Pressure Mean 89 93 Pulse Ox 97 100 Oxygen Delivery Method Room Air Room Air 01/30/25 13:55 01/30/25 14:21 Temperature 98.2 F Temperature Source Pulse Rate 80 70 Respiratory Rate 14 Respiratory Pattern Blood Pressure 103/69 103/69 Blood Pressure Mean 80 80 Pulse Ox 100 100 Oxygen Delivery Method Room Air MDM MDM MDM Narrative Medical decision making narrative: Patient is a 69-year-old male presenting to the emergency department for transient hypotension. Patient was seen and examined. Vitals are stable. Patient resting bed comfortably no acute distress. BP here is 118/75. Patient is not tachycardic. Patient is asymptomatic. Has no complaints. Patient likely was hypovolemic from his diarrhea yesterday which resolved after the 2 L that was given at the dialysis facility. Patient ambulates without difficulty does not became lightheaded or dizzy. Will obtain basic labs and EKG to evaluate for any reversible cause of the transient hypotension. EKG shows normal sinus rhythm with no ischemic changes. No dysrhythmia. No ST elevation or depression. CBC with mild leukopenia at 3.7 and chronic anemia of 11.0. BMP with no significant abnormalities. Patient was observed here while labs and EKG were obtained and patient is still asymptomatic with no complaints. BP continues to be stable. In terms of the patient's arm swelling, he has no pain, erythema or warmth. States he had an ultrasound done of his arm which was reviewed here and shows no acute abnormalities of his fistula. States he has had it for the past few months and has a follow-up appointment with Dr. Jackson on Sunday. Patient discharged from the Emergency Department. I do not feel that the patient's evaluation reveals any acute reason for admission at this time. I instructed them to either follow-up with their primary care physician or promptly return to the Emergency Department for reevaluation should symptoms worsen or new symptoms develop. I explained what symptoms would indicate the need to return to the emergency department. Shared decision making was used. The patient voiced understanding of the treatment plan and is agreeable with it. Clinical impression: transient hypotension History & Record Review Discussion w/independent historian: Patient and Significant other Lab Data Attestation: I reviewed the patient's lab results. Labs: Laboratory Results - last 24 hr 01/30/25 13:04 WBC 3.7 L RBC 3.55 L Hgb 11.0 L Hct 33.9 L MCV 95.5 H MCH 31.0 MCHC 32.4 RDW Std Deviation 47.9 H RDW Coeff of Marcos 13.5 Plt Count 156 MPV 9.1 Immature Gran % (Auto) 0.500 Neut % (Auto) 62.8 Lymph % (Auto) 19.3 [place] % (Auto) 13.1 H Eos % (Auto) 3.2 Baso % (Auto) 1.1 H Absolute Neuts (auto) 2.3 Absolute Lymphs (auto) 0.72 L Nucleated RBC % 0 Sodium 140 Potassium 3.4 Chloride 98 Carbon Dioxide 32.7 H Anion Gap 9 BUN 14 Creatinine 1.65 H Estim Creat Clear Calc 41.66 L Est GFR (MDRD) Non-Af 44 L BUN/Creatinine Ratio 8.5 L Glucose 82 Calcium 7.9 Discharge Plan Triage Chief Complaint: Hypotension ED Provider: Fidelina Holman Dx/Rx/DC Orders Clinical Impression: Dialysis complication, Dehydration Instructions: Dehydration, ED Low Blood Pressure, All Causes Prescriptions: No Action atorvastatin 80 mg tablet 80 mg PO QHS Qty: 90 3RF ezetimibe 10 mg tablet 10 mg PO DAILY Qty: 90 3RF ferrous sulfate 325 mg (65 mg iron) tablet 325 mg PO DAILY Qty: 90 3RF acetaminophen 500 mg tablet 1,000 mg PO Q8 PRN (Reason: pain) Rx Instructions: Take Tylenol this way for 5 to 7 days postoperatively and then okay to go back and use as needed amoxicillin 500 mg tablet 2,000 mg PO ONCE Qty: 4 0RF Rx Instructions: Take one hour prior to dental cleanings/procedure metoprolol tartrate 25 mg Tablet 25 mg PO BID Qty: 0 0RF pantoprazole 40 mg Tablet,Delayed Release (Dr/Ec) 40 mg PO BID Qty: 0 0RF polyethylene glycol 3350 [Miralax] 17 gram/dose powder 17 g PO DAILY PRN (Reason: constipation) ondansetron 4 mg tablet,disintegrating 4 mg PO Q8H PRN PRN (Reason: nausea and vomiting) oxycodone 5 mg tablet 5 mg PO Q8H PRN (Reason: pain) 2 Days Qty: 6 0RF oxycodone-acetaminophen 5-325 mg tablet 1 tab PO Q6H PRN PRN (Reason: pain) 5 Days Qty: 20 0RF nitroglycerin 0.4 mg tablet, sublingual 0.4 mg sublingual PRN PRN (Reason: angina) aspirin 81 mg Tablet,Chewable 81 mg PO BID Qty: 0 0RF Rx Instructions: Take for 30 days postop and then okay to discontinue Primary Care Provider: Yaw Singh Referrals: Yaw Singh MD [Primary Care Provider, Family Practice] - As soon as possible Activity Restrictions/Additional Instructions: Your evaluation in the Emergency Department did not reveal any acute reason for admission. However, I want to emphasize that you may be early in the course of a disease process or illness even if it is not present. For this reason you should follow-up within 24 hours for reevaluation with either your primary care physician or if necessary back here in the Emergency Department. You should return to the Emergency Department immediately if your symptoms worsen or new symptoms develop. Print Language: Faroese Disposition Disposition: Home, Self Care Discharge Date/Time: 01/30/25 14:22
--- NOTE | 2025-01-30 13:27 | EKG12_ITS ---
Test Reason : ARRYTH Blood Pressure : */* mmHG Vent. Rate : 75 BPM Atrial Rate : 75 BPM P-R Int : 148 ms QRS Dur : 96 ms QT Int : 416 ms P-R-T Axes : 13 7 6 degrees QTcB Int : 464 ms Normal sinus rhythm Cannot rule out Anterior infarct , age undetermined Abnormal ECG Confirmed by TRINH RIVERA ([id number]), commercial production editor CYNTHIA JOHN ([id number]) on 02/02/2025 6:40:55 AM Referred By: ER Confirmed By: TRINH RIVERA
[2025-01-30 13:36] LABS: Hematocrit 33.9 % (40-54); Hemoglobin 11.0 g/dL (13.0-16.5); Immature Granulocytes Count 0.020 X10^3/uL (0.0-0.0); Mean Corp Hgb Conc 32.4 g/dL (32-36); Mean Corpuscular Volume 95.5 fL (80-94); Mean Platelet Vol. 9.1 fl (6.2-12.0); NRBC Flagged by Analyzer 0 % (0-5); Platelet Count 156 K/mm3 (150-450); RBC Distribution Width CV 13.5 % (11.6-14.6); RBC Distribution Width SD 47.9 fl (35.1-43.9); Red Blood Count 3.55 M/mm3 (4.6-6.2); White Blood Count 3.7 K/mm3 (4.4-11.0)
[2025-01-30 13:55] VITALS: BP 103/69; PULSE 80; O2SAT 100
[2025-01-30 13:59] LABS: Anion Gap 9 (5-15); BUN 14 mg/dL (4-19); BUN/Creat Ratio 8.5 RATIO (10-20); Calcium,Total 7.9 mg/dL (7.6-11.0); Carbon Dioxide 32.7 mmol/L (21.0-32.0); Chloride 98 mmol/L (98-108); Estimated Creatinine Clearance 41.66 ml/min (50-250); Glucose 82 mg/dL (70-99); Potassium 3.4 mmol/L (3.3-5.1)
[2025-01-30 14:21] VITALS: BP 103/69; PULSE 70; RESP 14; TEMP 36.8; O2SAT 100
== END 2025-01-30 14:22 | disposition home or self-care (01) ==
PROVIDERS: Emergency Provider Student in an Organized Health Care Education/Training Program; PCP Family Medicine; Visit Provider Student in an Organized Health Care Education/Training Program
DX: I95.9 Hypotension, unspecified (principal); I12.0 Hypertensive chronic kidney disease with stage 5 chronic kidney disease or end stage renal disease; N18.6 End stage renal disease; E86.0 Dehydration; D64.9 Anemia, unspecified; I25.10 Atherosclerotic heart disease of native coronary artery without angina pectoris; E78.5 Hyperlipidemia, unspecified; M79.89 Other specified soft tissue disorders; R19.7 Diarrhea, unspecified; Z99.2 Dependence on renal dialysis; Z79.82 Long term (current) use of aspirin; Z79.899 Other long term (current) drug therapy
CPT/HCPCS: 80048; 85025; 93005; 99283; A4216

== ENCOUNTER 2025-03-04 08:58 | Day surgery (SDC) | payer MEDICARE, OTHER, SELFPAY ==
[2025-03-03 08:43] VITALS: BMI 23.1
--- NOTE | 2025-03-04 14:41 | OP.PCM_ITS ---
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 Over the past 4 weeks he has developed increasing left forearm edema and over the last 2 weeks he has had increased bleeding time after needle removal at the completion of dialysis sessions. He is taken now for fistulogram with possible intervention. Description of procedure: Upon obtaining informed consent and verification correct patient procedure site the patient taken to the Marketing Account Manager where he was positioned prepped and draped in usual sterile fashion. Timeouts performed conscious addition administered Versed and fentanyl. Skin overlying the fistula was anesthetized with 1% lidocaine the vessel accessed in a retrograde fashion with a micropuncture needle wire under ultrasound guidance. This was then exchanged for the 7 [place] fistula sheath which was advanced without resistance. Through the fistula sheath hand-injection subtraction angiography of the fistula including the outflow to the atriocaval junction was performed. 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 Otherwise the fistula and his outflow were normal in appearance. Given the size of the adjacent vessels and location of the lesion was felt this was best assessed with intravascular ultrasound which required an 8 [place]an sheath and there was an opportunity for endovascular treatment. Through the 7 [place]an sheath a glide advantage wire was advanced and the micropuncture sheath exchanged for an 8 [place] sheath. The wire was then navigated into the inferior vena cava and an intravascular ultrasound probe advanced to the atriocaval junction and recorded pullback performed from this position to the cephalic vein. 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 Reference vessel sizes were obtained and the lesion was serially balloon angioplastied with 8 mm x 40 conquest, 10 mm x 40 conquest, 12 mm x 40 Romulus with satisfactory lesion response. Finally a 12 mm x 40 Bard Marlene Rox Resourcess paclitaxel coated angioplasty balloon was selected and inflated to nominal centered on the lesion. During this balloon angioplasty there was visualized recurrence of the area of stenosis that did resolve with complete inflation however the suggested there was significant recoil. After completing the inflation the balloon was withdrawn and a 14 mm x 40 Romulus balloon was advanced and send the lesion inflated to nominal for 3 minutes then deflated withdrawn. Completion angiography confirmed brisk contrast transit with no visualized residual stenosis and significantly diminished filling of the neck collaterals. Imaging of the proximal aspect of the fistula was then obtained while compressing the mid fistula. This revealed normal caliber proximal fistula down to the anastomosis however there is a very large collateral that emptied into the forearm filling the deep venous system. It was suspected this at least in part contributed to the forearm swelling though did not likely contribute to the bleeding episodes. Should he continue to have edema this branch could be ligated surgically. A nylon pursestring sutures in place at the access site and the sheath withdrawn followed by 5 minutes of manual pressure. The patient was then taken to the recovery area with plan discharge to home. Surgical Findings: See above Complications Complications: No
== END 2025-03-04 14:17 | disposition home or self-care (01) ==
PROVIDERS: PCP Family Medicine; Referring Provider Surgery Trauma Surgery; Visit Provider Surgery Trauma Surgery
DX: T82.858A Stenosis of other vascular prosthetic devices, implants and grafts, initial encounter (principal); N18.6 End stage renal disease; I12.0 Hypertensive chronic kidney disease with stage 5 chronic kidney disease or end stage renal disease; Y71.8 Miscellaneous cardiovascular devices associated with adverse incidents, not elsewhere classified; Z79.899 Other long term (current) drug therapy; Z79.82 Long term (current) use of aspirin; K21.9 Gastro-esophageal reflux disease without esophagitis; I25.10 Atherosclerotic heart disease of native coronary artery without angina pectoris; E78.5 Hyperlipidemia, unspecified; Z95.5 Presence of coronary angioplasty implant and graft; I77.0 Arteriovenous fistula, acquired
CPT/HCPCS: 36901; 36907; 37252; 37253; 76937; 99152; 99153; C1753; C1894; C2623; Q9967; C1725

== ENCOUNTER 2025-03-05 16:43 | Inpatient (IN) | payer MEDICARE, OTHER, SELFPAY ==
[2025-03-05 16:44] VITALS: BP 129/78; PULSE 90; RESP 22; TEMP 36.7; O2SAT 99
[2025-03-05 16:46] VITALS: BMI 21.6
--- OUTSIDE RECORDS SUMMARY | 2025-03-05 17:28 | XMS RPT_ITS | CCD ---
Author Organization [facility] Care Team Providers Care Demand Planning Analyst Name Role Phone KATHI BEASLEY Unavailable Unavailable CEBUL III, DANE A Unavailable Unavailable Pawa, Pratheep Unavailable Unavailable Cebul, Dane A Primary Care Provider Gilberto Ramos Primary Care Provider Gilberto Ramos DO Primary Care Provider Kirill MANNING MD, Daesung Unavailable Yeimy BAUTISTA, Luly Unavailable Unavailable Masci DO, Richard A Unavailable Ludin, Caroleen S Unavailable Yaw Singh MD Primary Care Provider Sena Martinez Unavailable Unavailable Masci DO, Richard A Unavailable Sena Seymour RN Unavailable Unavailable Kirill MANNING MD, Daesung Unavailable Yeimy BAUTISTA, Luly Unavailable Unavailable Masci DO, Richard A Unavailable Ludin, Haroldo S Unavailable Yaw Singh MD Primary Care Provider Ludin, Caroleen S Unavailable Yaw Singh MD Primary Care Provider Kirill MANNING MD, Daesung Unavailable Yeimy BAUTISTA, Luly Unavailable Unavailable Masci DO, Richard A Unavailable Ludin, Haroldo S Unavailable Yaw Singh MD Primary Care Provider Sena Seymour RN Unavailable Unavailable Dr. Yaw Singh Primary Care Provider Dr. Yaw Singh Referring Provider [facility] CONTRACTING MANAGER, CONTRACTING MANAGER-C Angel Donis Attending Provider Yeimy BAUTISTA, Luly Unavailable Unavailable Ludin, Haroldo S Unavailable Ludin MANNING Caroleen S Unavailable RICHARD JENKINS Referring Unavailable YAW SINGH Primary Care Unavailable RICHARD JENKINS Referring Unavailable YAW SINGH Primary Care Unavailable Kirill MANNING, Madan Unavailable Yaw Singh MD Primary Care Provider aYw Singh MD Primary Care Provider Bud Beck DO Unavailable Turkhia, Helen Unavailable Unavailable AMOS RANGEL Attending Unavailable AMOS RANGEL Referring Unavailable YAW SINGH Primary Care Unavailable JURGEN BOCANEGRA Attending Unavailable JURGEN BOCANEGRA Referring Unavailable YAW SINGH Primary Care Unavailable JURGEN BOCANEGRA Attending Unavailable RICHARD JENKINS Referring Unavailable YAW SINGH Primary Care Unavailable MAR BERKOWITZYSSA Referring Unavailable YAW SINGH Primary Care Unavailable RICHARD JENKINS Referring Unavailable YAW SINGH Primary Care Unavailable RICHARD JENKINS Referring Unavailable YAW SINGH Primary Care Unavailable Anisa RN, Maegan Ferguson Unavailable Anisa RN, Maegan Phyllis Unavailable Robin GLEZN.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, Unavailable Usha Mcgovern PA-C Unavailable Rossy MANNING, Helen Unavailable Samantha MANNING, Dr. Tidwell Primary Care Provider Yari MANNING, Dr. Ratliff Attending Provider Yari MANNING, Dr. Ratliff Referring Provider Dr. Nikita Jackson MD Attending Provider Samantha MANNING, Dr. Tidwell Referring Provider Vern Fung Attending Provider [phone] Manuel MANNING, Dr. Shelton Referring Provider [phone] Manuel MANNING, Dr. Shelton Other Provider [phone] Azra RN, Josue B Unavailable Unavailable Azra BAUTISTA, Josue B Unavailable Unavailable Robin RAILROAD CONDUCTOR.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, Unavailable Samantha MANNING, Dr. Tidwell Primary Care Provider Manuel MANNING, Dr. Shelton Attending Provider [phone] Samantha MANNING, Dr. Tidwell Referring Provider Maggie Potter Attending Provider [phone] Robin RAILROAD CONDUCTOR.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, Unavailable Mcgovern PA-C, Usha Unavailable Mcgovern PA-C, Usha Unavailable Negro MANNING, Dr. [place] Emergency Provider Samantha MANNING, Dr. Tidwell Primary Care Provider [phone] Manuel MANNING, Dr. Shelton Attending Provider [phone] Manuel MANNING, Dr. Shelton Referring Provider [phone] Negro MANNING, Dr. Canchola Attending Provider Samantha MANNING, Dr. Tidwell Primary Care Provider [phone] Manuel MANNING, Dr. Shelton Attending Provider [phone] Manuel MANNING, Dr. Shelton Referring Provider [phone] Manuel MANNING, Dr. Shelton Other Provider [phone] Connie Hicks Attending Provider Ludin MANNING, Dr. Zarco Attending Provider [phone] Samantha MANNING, Dr. Tidwell Primary Care Provider Samantha MANNING, Dr. Tidwell Referring Provider Maggie Potter Attending Provider [phone] Fred PA, Connie Referring Provider Manuel, Nikita Referring Unavailable Samantha, Yaw Primary Care Unavailable Manuel, Nikita Attending Unavailable Samantha, Yaw Primary Care Unavailable Samantha, Yaw Referring Unavailable Vern Fung Attending Unavail able Fred, Connie Referring Unavailable Fred, Connie Attending Unavailable Samantha, Yaw Primary Care Unavailable Manuel, Nikita Referring Unavailable Samantha, Yaw Primary Care Unavailable Colfax, Nikita Attending Unavailable Manuel, Nikita Attending Unavailable Samantha, Yaw Primary Care Unavailable Samantha, Yaw Primary Care Unavailable Prayson, Kody Referring Unavailable Prayson, Kody Attending Unavailable Fred, Connie Referring Unavailable Fred, Connie Attending Unavailable Samantha, Yaw Primary Care Unavailable Samantha, Yaw Primary Care Unavailable Mosquera, Maggie Referring Unavailable Mosquera, Maggie Attending Unavailable Samantha, Yaw Primary Care Unavailable Samantha, Yaw Referring Unavailable Mosquera, Maggie Attending Unavailable Samantha, Yaw Primary Care Unavailable Samantha, Yaw Referring Unavailable Mosquera, Maggie Attending Unavailable Samantha, Yaw Referring Unavailable Fred, Connie Attending Unavailable Samantha, Yaw Primary Care Unavailable Samantha, Yaw Primary Care Unavailable Samantha, Yaw Referring Unavailable Mosquera, Maggie Attending Unavailable Colfax, Nikita Attending Unavailable Samantha, Yaw Primary Care Unavailable Mosquera, Maggie Referring Unavailable Manuel, Nikita Attending Unavailable Manuel, Nikita Consulting Unavailable Manuel, Nikita Referring Unavailable Samantha, Yaw Primary Care Unavailable Colfax, Nikita Consulting Unavailable Colfax, Nikita Referring Unavailable Samantha, Yaw Primary Care Unavailable Manuel, Nikita Attending Unavailable Haroldo Noland Attending Unavailable Samantha, Yaw Primary Care Unavailable Samantha, Yaw Referring Unavailable Samantha, Yaw Primary Care Unavailable Mosquera, Maggie Attending Unavailable River, Fidelina Attending Unavailable Samantha, Yaw Primary Care Unavailable Samantha, Yaw Primary Care Unavailable Sushant Tom Attending Unavailable Yari, Jayaprakas Referring Unavailable Samantha, Yaw Primary Care Unavailable Colfax, Nikita Attending Unavailable Samantha, Yaw Primary Care Unavailable Manuel, Nikita Attending Unavailable Trinh Briones Attending Unavailable Samantha, Yaw Primary Care Unavailable Yari, Jayaprakas Referring Unavailable Yari, Jayaprakas Attending Unavailable Samantha, Yaw Primary Care Unavailable Colfax, Nikita Referring Unavailable Samantha, Yaw Primary Care Unavailable Nikiat Jackson Attending Unavailable SAMANTHA, YAW A Primary Care Unavailable MASCI, RICHARD A Referring Unavailable SAMANTHA, YAW A Primary Care Unavailable MASCI, RICHARD A Referring Unavailable GADIEL, ZIAD Referring Unavailable SAMANTHA, YAW A Primary Care Unavailable SAMANTHA, YAW A Attending Unavailable SAMANTHA, YAW A Primary Care Unavailable ASMANTHA, YAW A Primary Care Unavailable BOBBY BRUCE Attending Unavailable SAMANTHA, YAW A Primary Care Unavailable SAMANTHA, YAW A Referring Unavailable SAMANTHA, YAW A Primary Care Unavailable USHA MCGOVERN Referring Unavailable SAMANTHA, YAW A Referring Unavailable DELICIA DÍAZ Attending Unavaila ble SAMANTHA, YAW A Primary Care Unavailable SAMANTHA, YAW A Attending Unavailable SAMANTHA, YAW A Primary Care Unavailable SAMANTHA, AYW A Primary Care Unavailable SAMANTHA, YAW A Primary Care Unavailable GOI, RICHARD A Referring Unavailable MARIA VICTORIA SCOTT Referring Unavailable SAMANTHA, YAW A Primary Care Unavailable GRABIEL RUFF Referring Unavailable SAMANTHA, YAW A Primary Care Unavailable GADIEL, ZIAD Referring Unavailable SAMANTHA, YAW A Primary Care Unavailable VICENTE ADDISON Attending Unavailable STEVE YOUSSEF Attending Unavailable SAMANTHA, YAW A Primary Care Unavailable SAMANTHA, YAW A Primary Care Unavailable MASCI, RICHARD A Referring Unavailable GADIEL, ZIAD Referring Unavailable SAMANTHA, YAW A Primary Care Unavailable SAMANTHA, YAW A Primary Care Unavailable YAW SMITH Attending Unavailable SAMANTHA, YAW A Primary Care Unavailable SAMANTHA, YAW A Attending Unavailable SAMANTHA, YAW A Primary Care Unavailable USHA MCGOVERN Attending Unavailable SAMANTHA, AYW A Primary Care Unavailable USHA MCGOVERN Referring Unavailable SAMANTHA, YAW A Primary Care Unavailable SAMANTHA, YAW A Attending Unavailable SELF Referring Unavailable SAMANTHA, YAW A Primary Care Unavailable MASCI, RICHARD A Referring Unavailable STEVE YOUSSEF Referring Unavailable SAMANTHA, YAW A Primary Care Unavailable SAMANTHA, YAW A Primary Care Unavailable RICHARD JENKINS A Attending Unavailable SAMANTHA, YAW A Primary Care Unavailable STACIA ADAME Referring Unavailab le SAMANTHA, YAW A Referring Unavailable SAMANTHA, YAW A Primary Care Unavailable MARCELA REAL Attending Unavailable SAMANTHA, YAW A Primary Care Unavailable ISMAIL, MARIA VICTORIA Referring Unavailable YAW SINGH A Primary Care Unavailable ISMAIL, MARIA VICTORIA Referring Unavailable YAW SINGH A Primary Care Unavailable ISMAIL, MARIA VICTORIA Referring Unavailable YAW SINGH A Primary Care Unavailable AYW SINGH Attending Unavailable YAW SINGH Primary Care Unavailable YAW SINGH Primary Care Unavailable STEVE YOUSSEF Attending Unavailable YAW SINGH Primary Care Unavailable RICHARD JENKINS Attending Unavailable Allergies Allergy Classification Reported Allergen(s) Allergy Type Date of Onset Reaction(s) Facility (7 sources) bee pollen Propensity to adverse reactions to drug 4 Shortness Of Breath [place], [place] (7 sources) Seasonal allergy Propensity to adverse reactions to substance 4 Other (See Comments) [place], [place] (20 sources) Environmental allergies [Other] Propensity to adverse reactions 6 Other: See Comments [facility] Work Phone: (2 sources) Environmental Allergies: Uncoded Allergy to substance 3 Itching [facility] (20 sources) Seasonal allergy; Translations: [SEASONAL ALLERGIES] Allergy to substance 4 Other: See Comments [facility] Medications Current Medications Medication Drug Class(es) Dates Sig (Normalized) Sig (Original) acetaminophen 500 mg oral tablet (20 sources) Start: 02-17-2024 End: 04-29-2024 Acetaminophen 500 mg tablet Active 1000 mg PO EVERY 8 HOURS as needed for pain April 29, 2024 3:07pm Take Tylenol this way for 5 to 7 days postoperatively and then okay to go back and use as needed Start: 10-25-2023 End: 04-29-2024 Acetaminophen 325 mg Tablet Discontinued 650 mg PO EVERY 6 HOURS NEEDED as needed for Pain 1-10 Or Fever >100.7 0 0 October 25, 2023 12:00am April 29, 2024 3:07pm On Hold: Until you are done taking scheduled Tylenol as directed on discharge Start: 03-03-2019 take 650 mg by mouth every four hours as needed for pain, then take 4000 mg by mouth every twenty-four hours as needed for pain 650 mg, Oral, EVERY 4 HOURS PRN, Pain Mild (1-3), Fever, Fever >100.5 F (38 C), Starting 03/03/19 at 0859 Maximum dose of acetaminophen is 4000 mg from all sources in 24 hours. Post-op take 1 tablet by marcella th every eight hours as needed acetaminophen (TYLENOL) 500 mg tablet Take 500 mg by mouth every 8 hours as needed for pain. Active take 1 tablet by marcella th every six hours as needed acetaminophen (TYLENOL) 500 mg tablet Take 500 mg by mouth every 6 hours as needed. Active Comment on above: Take 500 mg by mouth every 6 hours as needed. acetaminophen 325 mg / oxyCODONE hydrochloride 5 mg oral tablet (15 sources) Opioid Agonist Start: 09-18-19 25 take 1 tablet by mouth every six hours as needed oxyCODONE-acetaminop hen (PERCOCET) 5-325 mg tablet Take 1 tablet by mouth every 6 hours as needed for pain. 09/17/2024 Active Administered Medications Medication Order MAR Action Action Date Dose Rate Site tuberculin skin test, unspecified formulation Given 11/05/2023 (1 source) Administered Medications Medication Order MAR Action Action Date Dose Rate Site tuberculin skin test, unspecified formulation Given 11/05/2023 ascorbic acid 500 mg oral tablet (20 sources) Vitamin C Start: 01-06-20 24 take 1 tablet by mouth every other day ascorbic acid, vitamin C, (VITAMIN C) 500 mg tablet Take 1 tablet by mouth every other day. 01/06/2024 Active ascorbic acid / D-biotin / folic acid / niacinamide / pantothenate / pyridoxine / riboflavin / thiamine / vitamin B12 (9 sources) Vitamin B12, Vitamin C Start: 10-04-19 25 take 1 tablet by mouth once daily GERMAN-CATY 0.8 mg tab Take 1 tablet by mouth once daily. 10/03/2024 Active aspirin 81 mg delayed release oral tablet (20 sources) Platelet Aggregation Inhibitor, Nonsteroidal Anti-inflammatory Drug Start: 09-23-19 25 take 1 tablet by mouth once daily aspirin, enteric coated (ADULT LOW DOSE ASPIRIN) 81 mg EC tablet Take 1 tablet by mouth once daily. 09/22/2024 Active Start: 02-17-2024 Aspirin 81 mg Tablet,Chewable Active 81 mg PO TWICE A DAY 0 February 17, 2024 1:00am Take for 30 days postop and then okay to discontinue Start: 01-23-2014 End: 01-03-2024 take 1 tablet by mouth once daily Aspirin 81 MG tablet,chewable Discontinued 81 mg PO DAILY@0800 January 23, 2014 12:00am December 04, 2023 2:21pm HEALTH On Hold: Resume on 11/20/23. Comment on above: Take 1 tablet by marcella th once daily. atorvastatin 80 mg oral tablet (20 sources) HMG-CoA Reductase Inhibitor Start: 014 End: take 1 tablet by mouth once daily at bedtime atorvastatin (LIPITOR) 80 mg tablet Take 1 tablet by mouth daily at bedtime. 90 tablet 1 10/07/2024 04/05/2025 Active Comment on above: Take 1 tablet by marcella th daily at bedtime. bisacodyl 10 mg rectal suppository (1 source) Stimulant Laxative Start: take 10 mg rectal route once daily as needed for constipation 10 mg, Rectal, DAILY PRN, Constipation, Starting 03/03/19 at 0859 First line therapy for constipation Post-op cefadroxil 500 mg oral capsule (1 source) Cephalosporin Antibacterial Start: End: take 1 capsule by mouth twice daily cefADROxil (DURICEF) 500 mg capsule Take 1 capsule by mouth twice daily for 7 days. 14 capsule 0 02/09/2022 02/16/2022 Active Comment on above: Take 1 capsule by mo [facility] twice daily for 7 days. cetirizine hydrochloride 10 mg oral tablet (1 source) Histamine-1 Receptor Antagonist Start: End: take 1 tablet by mouth once daily cetirizine (ZYRTEC) 10 mg tablet Take 1 tablet by mouth once daily. 30 tablet 2 12/24/2024 03/24/2025 Active clotrimazole 10 mg oral lozenge (3 sources) Azole Antifungal Start: End: take 1 tablet by mouth five times daily clotrimazole (MYCELEX) 10 mg neena Indications: Oral thrush Use 1 Neena as instructed five times a day for 14 days. 70 tablet 01/31/2024 02/14/2024 Active doxycycline hyclate 100 mg oral capsule (8 sources) Tetracycline-class Drug Start: End: take 1 capsule by mouth twice daily doxycycline hyclate (VIBRAMYCIN) 100 mg capsule Take 1 capsule by mouth two times a day for 7 days. 14 capsule 12/24/2024 12/31/2024 Active Start: 09-12-2024 End: 09-15-2024 take 1 tablet by mouth twice daily doxycycline (VIBRA-TABS) 100 mg tablet Take 1 tablet by mouth two times a day for 3 days. 6 tablet 09/12/2024 09/15/2024 Active Start: 08-05-2024 End: 08-10-2024 take 1 tablet by mouth twice daily doxycycline monohydrate 100 mg tablet Take 1 tablet by mouth two times a day for 5 days. 10 tablet 08/05/2024 08/10/2024 Active Start: 05-07-2024 End: 05-14-2024 take 1 tablet by mouth twice daily doxycycline monohydrate 100 mg tablet Indications: Secondary infection of skin Take 1 tablet by mouth two times a day for 7 days. 14 tablet 05/07/2024 05/14/2024 Active Start: 02-27-2023 End: 03-06-2023 take 1 tablet by mouth twice daily doxycycline (VIBRA-TABS) 100 mg tablet Take 1 tablet by mouth two times a day for 7 days. 14 tablet 0 02/27/2023 03/06/2023 Active Comment on above: Take 1 tablet by marcella th two times a day for 7 days. 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) For CT ABD/PEL W IVCON Routine order Administer, As Directed One Time Only, via Oral, Rectal, both Oral and Rectal, Enteric Tube, Stoma or Indwelling Catheter, Enteric Contrast as designated per enteric contrast guidelines 1 Each 07/19/2023 11/07/2024 Discontinued Start: 07-19-[address] (will be provided with radiology test) 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) For CT ABD/PEL W IVCON Routine order Administer, As Directed One Time Only, via Oral, Rectal, both Oral and Rectal, Enteric Tube, Stoma or Indwelling Catheter, Enteric Contrast as designated per enteric contrast guidelines 1 Each 07/19/2023 Active Start: 07-19-[address] (will be provided with radiology test) 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) For CT ABD/PEL W IVCON Routine order Administer, As Directed One Time Only, via Oral, Rectal, both Oral and Rectal, Enteric Tube, Stoma or Indwelling Catheter, Enteric Contrast as designated per enteric contrast guidelines 1 Each 0 07/19/2023 Active Start: 08-22-2022 End: 08-23-2022 enteric contrast (will be pr ovided with radiology test) 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) For CT CHESTABD/PEL W IVCON Routine order Administer, As Directed One Time Only, via Oral, Rectal, both Oral and Rectal, Enteric Tube, Stoma or Indwelling Catheter, Enteric Contrast as designated per enteric contrast guidelines 1 Each 0 08/22/2022 08/23/2022 Active Start: 02-22-2022 End: 06-19-2023 enteric contrast (will be pr ovided with radiology test) 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) For CT ABD/PEL W IVCON Routine order Administer, As Directed One Time Only, via Oral, Rectal, both Oral and Rectal, Enteric Tube, Stoma or Indwelling Catheter, Enteric Contrast as designated per enteric contrast guidelines 1 Each 02/22/2022 06/19/2023 Discontinued Start: 02-22-2022 End: 06-19-2023 enteric contrast (will be pr ovided with radiology test) 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) For CT ABD/PEL W IVCON Routine order Administer, As Directed One Time Only, via Oral, Rectal, both Oral and Rectal, Enteric Tube, Stoma or Indwelling Catheter, Enteric Contrast as designated per enteric contrast guidelines 1 Each 0 02/22/2022 06/19/2023 Discontinued Start: 02-22-[address] (will be provided with radiology test) 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) For CT ABD/PEL W IVCON Routine order Administer, As Directed One Time Only, via Oral, Rectal, both Oral and Rectal, Enteric Tube, Stoma or Indwelling Catheter, Enteric Contrast as designated per enteric contrast guidelines 1 Each 0 02/22/2022 Active Start: 11-02-2021 End: 11-03-2021 enteric contrast (will be pr ovided with radiology test) 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) For CT CHESTABD/PEL W IVCON Routine order Administer, As Directed One Time Only, via Oral, Rectal, both Oral and Rectal, Enteric Tube, Stoma or Indwelling Catheter, Enteric Contrast as designated per enteric contrast guidelines 1 Each 0 11/02/2021 11/03/2021 Active Start: 08-24-2021 End: 05-19-2022 enteric contrast (will be pr ovided with radiology test) 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) For CT CHESTABD/PEL W IVCON Routine order Administer, As Directed One Time Only, via Oral, Rectal, both Oral and Rectal, Enteric Tube, Stoma or Indwelling Catheter, Enteric Contrast as designated per enteric contrast guidelines 1 Each 0 08/24/2021 08/25/2021 Active Comment on above: For CT CHESTABD/PEL W IVCON Routine order Administer, As Directed One Time Only, via Oral, Rectal, both Oral and Rectal, Enteric Tube, Stoma or Indwelling Catheter, Enteric Contrast as designated per enteric contrast guidelines For CT ABD/PEL W IVC ON Routine order Administer, As Directed One Time Only, via Oral, Rectal, both Oral and Rectal, Enteric Tube, Stoma or Indwelling Catheter, Enteric Contrast as designated per enteric contrast guidelines ezetimibe 10 mg oral tablet (20 sources) Dietary Cholesterol Absorption Inhibitor Start: 0 End: 5 take 1 tablet by mouth once daily ezetimibe (ZETIA) 10 mg tablet Take 1 tablet by mouth once daily. 90 tablet 1 06/30/2024 Active Comment on above: Take 1 tablet by marcella th once daily. ferrous sulfate 325 mg oral tablet (9 sources) Start: 4 take 1 tablet by mouth once daily Ferrous Sulfate 325 mg (65 mg iron) tablet Active 325 mg PO DAILY 90 November 20, 2023 12:00am ferrous sulfate (SLOW FE) 137 mg (45 mg iron) TbER (20 sources) Start: 4 take 1 tablet by mouth every other day ferrous sulfate (SLOW FE) 137 mg (45 mg iron) TbER Take 1 tablet by mouth every other day. 01/06/2024 Active fluticasone propionate 0.05 mg/actuat metered dose nasal spray (20 sources) Corticosteroid Start: 5 End: 5 take 2 spray(s) nasal route twice daily fluticasone (FLONASE ALLERGY RELIEF) 50 mcg/actuation nasal spray Use 2 sprays in each nostril two times a day. 1 each 1 12/24/2024 01/23/2025 Active Start: 02-14-2024 End: 04-28-2024 Fluticasone Propionate 50 mc g/actuation spray,suspension Discontinued 1 NMA INTRANASAL DAILY February 14, 2024 1:00am April 28, 2024 3:26pm Start: 01-31-2024 take 1 spray(s) nasa l route once daily fluticasone (FLONASE) 50 mcg/actuation nasal spray Indications: Seasonal allergies Use 1 [place] in each nostril once daily. 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 Discontinue saline lock post exam. If Pt. has a central line or IVAD, may access for administration according to line specific nursing protocol. Once exam is complete flush line and de-access according to line specific nursing protocol in theCT contrast administration guidelines link. 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 No IV access, insert saline lock prior to the beginning of sedation, infusion, injection of imaging exam. Discontinue saline lock post exam. If Pt. has a central line or IVAD, may access for administration according to line specific nursing protocol. Once exam is complete flush line and de-access according to line specific nursing protocol in the MR contrast administration guidelines link. 1 Each 05/02/2024 05/03/2024 Active Start: 08-10-2023 End: 08-11-2023 inject 1 dose intravenously once iv contrast (will be provided with radiology test) Indications: Pathological fracture of thoracic vertebra, initial encounter MRI TSP Inject, intravenously, once for 1 dose. No IV access, insert saline lock prior to the beginning of sedation, infusion, injection of imaging exam. Discontinue saline lock post exam. If Pt. has a central line or IVAD, may access for administration according to line specific nursing protocol. Once exam is complete flush line and de-access according to line specific nursing protocol in the MR contrast administration guidelines link. 1 Each 0 08/10/2023 08/11/2023 Start: 07-19-2023 End: 01-17-2024 iv contrast (will be provide d with radiology test) 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) CT Chest W -Inject, intravenously, once for 1 dose.No IV access, insert saline lock prior to the beginning of sedation, infusion, injection of imaging exam. Discontinue saline lock post exam. If Pt. has a central line or IVAD, may access for administration according to line specific nursing protocol. Once exam is complete flush line and de-access according to line specific nursing protocol in the CT contrast administration guidelines link. 1 Each 07/19/2023 01/17/2024 Discontinued Start: 07-19-2023 End: 01-17-2024 iv contrast (will be provide d with radiology test) 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) CT ABD/PEL -Inject, intravenously, once for 1 dose.No IV access, insert saline lock prior to the beginning of sedation, infusion, injection of imaging exam. Discontinue saline lock post exam. If Pt. has a central line or IVAD, may access for administration according to line specific nursing protocol. Once exam is complete flush line and de-access according to line specific nursing protocol in the CT contrast administration guidelines link. 1 Each 07/19/2023 01/17/2024 Discontinued Start: 07-19-2023 iv contrast (w ill be provided with radiology test) 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) CT Chest W -Inject, intravenously, once for 1 dose.No IV access, insert saline lock prior to the beginning of sedation, infusion, injection of imaging exam. Discontinue saline lock post exam. If Pt. has a central line or IVAD, may access for administration according to line specific nursing protocol. Once exam is complete flush line and de-access according to line specific nursing protocol in the CT contrast administration guidelines link. 1 Each 07/19/2023 Active Start: 07-19-2023 iv contrast (w ill be provided with radiology test) 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) CT ABD/PEL -Inject, intravenously, once for 1 dose.No IV access, insert saline lock prior to the beginning of sedation, infusion, injection of imaging exam. Discontinue saline lock post exam. If Pt. has a central line or IVAD, may access for administration according to line specific nursing protocol. Once exam is complete flush line and de-access according to line specific nursing protocol in the CT contrast administration guidelines link. 1 Each 07/19/2023 Active Start: 07-19-2023 iv contrast (w ill be provided with radiology test) 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) CT Chest W -Inject, intravenously, once for 1 dose.No IV access, insert saline lock prior to the beginning of sedation, infusion, injection of imaging exam. Discontinue saline lock post exam. If Pt. has a central line or IVAD, may access for administration according to line specific nursing protocol. Once exam is complete flush line and de-access according to line specific nursing protocol in the CT contrast administration guidelines link. 1 Each 0 07/19/2023 Active Start: 07-19-2023 iv contrast (w ill be provided with radiology test) 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) CT ABD/PEL -Inject, intravenously, once for 1 dose.No IV access, insert saline lock prior to the beginning of sedation, infusion, injection of imaging exam. Discontinue saline lock post exam. If Pt. has a central line or IVAD, may access for administration according to line specific nursing protocol. Once exam is complete flush line and de-access according to line specific nursing protocol in the CT contrast administration guidelines link. 1 Each 0 07/19/2023 Active Start: 02-21-2023 End: 02-22-2023 inject 1 dose intravenously once iv contrast (will be provided with radiology test) Indications: Esophageal adenocarcinoma (HCC) , Compression fracture of thoracic vertebra, unspecified thoracic vertebral level, initial encounter (HCC) MRI TSP Inject, intravenously, once for 1 dose. No IV access, insert saline lock prior to the beginning of sedation, infusion, injection of imaging exam. Discontinue saline lock post exam. If Pt. has a central line or IVAD, may access for administration according to line specific nursing protocol. Once exam is complete flush line and de-access according to line specific nursing protocol in the MR contrast administration guidelines link. 1 Each 0 02/21/2023 02/22/2023 Active Start: 08-22-2022 End: 08-23-2022 iv contrast (will be provide d with radiology test) 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) CT Chest ABD/PEL-Inject, intravenously, once for 1 dose.No IV access, insert saline lock prior to the beginning of sedation, infusion, injection of imaging exam. Discontinue saline lock post exam. If Pt. has a central line or IVAD, may access for administration according to line specific nursing protocol. Once exam is complete flush line and de-access according to line specific nursing protocol in the CT contrast administration guidelines link. 1 Each 0 08/22/2022 08/23/2022 Active Start: 02-22-2022 End: 02-21-2023 iv contrast (will be provide d with radiology test) 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) CT ABD/PEL -Inject, intravenously, once for 1 dose.No IV access, insert saline lock prior to the beginning of sedation, infusion, injection of imaging exam. Discontinue saline lock post exam. If Pt. has a central line or IVAD, may access for administration according to line specific nursing protocol. Once exam is complete flush line and de-access according to line specific nursing protocol in the CT contrast administration guidelines link. 1 Each 02/22/2022 02/21/2023 Discontinued Start: 02-22-2022 End: 02-21-2023 iv contrast (will be provide d with radiology test) 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) CT Chest W -Inject, intravenously, once for 1 dose.No IV access, insert saline lock prior to the beginning of sedation, infusion, injection of imaging exam. Discontinue saline lock post exam. If Pt. has a central line or IVAD, may access for administration according to line specific nursing protocol. Once exam is complete flush line and de-access according to line specific nursing protocol in the CT contrast administration guidelines link. 1 Each 02/22/2022 02/21/2023 Discontinued Start: 02-22-2022 End: 02-21-2023 iv contrast (will be provide d with radiology test) 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) CT ABD/PEL -Inject, intravenously, once for 1 dose.No IV access, insert saline lock prior to the beginning of sedation, infusion, injection of imaging exam. Discontinue saline lock post exam. If Pt. has a central line or IVAD, may access for administration according to line specific nursing protocol. Once exam is complete flush line and de-access according to line specific nursing protocol in the CT contrast administration guidelines link. 1 Each 0 02/22/2022 02/21/2023 Discontinued Start: 02-22-2022 End: 02-21-2023 iv contrast (will be provide d with radiology test) 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) CT Chest W -Inject, intravenously, once for 1 dose.No IV access, insert saline lock prior to the beginning of sedation, infusion, injection of imaging exam. Discontinue saline lock post exam. If Pt. has a central line or IVAD, may access for administration according to line specific nursing protocol. Once exam is complete flush line and de-access according to line specific nursing protocol in the CT contrast administration guidelines link. 1 Each 0 02/22/2022 02/21/2023 Discontinued Start: 02-22-2022 iv contrast (w ill be provided with radiology test) 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) CT ABD/PEL -Inject, intravenously, once for 1 dose.No IV access, insert saline lock prior to the beginning of sedation, infusion, injection of imaging exam. Discontinue saline lock post exam. If Pt. has a central line or IVAD, may access for administration according to line specific nursing protocol. Once exam is complete flush line and de-access according to line specific nursing protocol in the CT contrast administration guidelines link. 1 Each 0 02/22/2022 Active Start: 02-22-2022 iv contrast (w ill be provided with radiology test) 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) CT Chest W -Inject, intravenously, once for 1 dose.No IV access, insert saline lock prior to the beginning of sedation, infusion, injection of imaging exam. Discontinue saline lock post exam. If Pt. has a central line or IVAD, may access for administration according to line specific nursing protocol. Once exam is complete flush line and de-access according to line specific nursing protocol in the CT contrast administration guidelines link. 1 Each 0 02/22/2022 Active Start: 11-02-2021 End: 11-03-2021 iv contrast (will be provide d with radiology test) 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) CT Chest ABD/PEL-Inject, intravenously, once for 1 dose.No IV access, insert saline lock prior to the beginning of sedation, infusion, injection of imaging exam. Discontinue saline lock post exam. If Pt. has a central line or IVAD, may access for administration according to line specific nursing protocol. Once exam is complete flush line and de-access according to line specific nursing protocol in the CT contrast administration guidelines link. 1 Each 0 11/02/2021 11/03/2021 Active Start: 08-24-2021 End: 08-25-2021 iv contrast (will be provide d with radiology test) 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) CT Chest ABD/PEL-Inject, intravenously, once for 1 dose.No IV access, insert saline lock prior to the beginning of sedation, infusion, injection of imaging exam. Discontinue saline lock post exam. If Pt. has a central line or IVAD, may access for administration according to line specific nursing protocol. Once exam is complete flush line and de-access according to line specific nursing protocol in the CT contrast administration guidelines link. 1 Each 0 08/24/2021 08/25/2021 Active Comment on above: CT Chest ABD/PEL-Inj ect, intravenously, once for 1 dose.No IV access, insert saline lock prior to the beginning of sedation, infusion, injection of imaging exam. Discontinue saline lock post exam. If Pt. has a central line or IVAD, may access for administration according to line specific nursing protocol. Once exam is complete flush line and de-access according to line specific nursing protocol in the CT contrast administration guidelines link. CT ABD/PEL -Inject, intravenously, once for 1 dose.No IV access, insert saline lock prior to the beginning of sedation, infusion, injection of imaging exam. Discontinue saline lock post exam. If Pt. has a central line or IVAD, may access for administration according to line specific nursing protocol. Once exam is complete flush line and de-access according to line specific nursing protocol in the CT contrast administration guidelines link. CT Chest W -Inject, intravenously, once for 1 dose.No IV access, insert saline lock prior to the beginning of sedation, infusion, injection of imaging exam. Discontinue saline lock post exam. If Pt. has a central line or IVAD, may access for administration according to line specific nursing protocol. Once exam is complete flush line and de-access according to line specific nursing protocol in the CT contrast administration guidelines link. MRI TSP Inject, intr avenously, once for 1 dose. No IV access, insert saline lock prior to the beginning of sedation, infusion, injection of imaging exam. Discontinue saline lock post exam. If Pt. has a central line or IVAD, may access for administration according to line specific nursing protocol. Once exam is complete flush line and de-access according to line specific nursing protocol in the MR contrast administration guidelines link. methocarbamol 500 mg oral tablet (14 sources) Muscle Relaxant Start: 10-08-19 take 1 tablet by mouth three times daily methocarbamol (ROBAXIN) 500 mg tablet Indications: Acute bilateral low back pain without sciatica Take 1 tablet by mouth three times a day. 60 tablet 10/07/2024 Active Start: 08-20-2024 End: 08-30-2024 take 1 tablet by mouth three times daily methocarbamol (ROBAXIN) 500 mg tablet Indications: Acute bilateral low back pain without sciatica Take 1 tablet by mouth three times a day for 10 days. 30 tablet 08/20/2024 08/30/2024 Active metoclopramide 1 mg/ml oral solution (18 sources) Dopamine-2 Receptor Antagonist Start: 07-19-2021 End: 08-18-2021 take 5 mL by mouth three times daily metoclopramide HCl (REGLAN) 5 mg/5 mL solution Take 5 mL by mouth three times daily. 450 mL 0 07/19/2021 08/18/2021 Active Start: 03-24-2021 End: 05-15-2022 take 1 tablet by mouth three times daily Metoclopramide Hcl 10 mg tablet Discontinued 10 mg PO THREE TIMES A DAY March 24, 2021 1:00am May 15, 2022 9:38am APPETITE Comment on above: Take 5 mL by mouth t hree times daily. metoprolol tartrate 25 mg oral tablet (20 sources) beta-Adrenergic Cookie Start: 06-29-2021 End: 10-07-2024 take 1 tablet by mouth twice daily metoprolol tartrate, short acting, (LOPRESSOR) 25 mg tablet Take 1 tablet by mouth two times a day. 180 tablet 1 10/07/2024 Active Start: 2021 End: 10-25-2023 Metoprolol Tartrate 25 mg ta blet Discontinued 25 mg PO TWICE A DAY 180 May 15, 2022 9:59am October 25, 2023 11:40am HEART Hold for heart less than 60 or systolic blood pressure less than 100 mmHg. Start: 09-24-2020 End: 2021 take 1 tablet by mouth twice daily Metoprolol Tartrate 25 mg tablet Discontinued 25 mg PO TWICE A DAY 180 September 24, 2020 3:06pm March 24, 2021 2:30pm Start: 01-23-2014 End: 09-24-2020 take 1 tablet by mouth once daily Metoprolol Succinate 100 MG tablet Discontinued 100 mg PO DAILY 90 May 28, 2017 6:27pm January 29, 2019 12:00pm Comment on above: Take 1 tablet by marcella twice daily. mupirocin 0.02 mg/mg topical ointment (14 sources) RNA Synthetase Inhibitor Antibacterial Start: 09-12-2024 End: 09-17-2024 mupirocin (BACTROBAN) 2 % ointment Apply to affected area three times a day for 5 days. 30 g 09/12/2024 09/17/2024 Active Start: 08-05-2024 End: 08-12-2024 mupirocin (BACTROBAN) 2 % oi ntment Apply to affected area three times a day for 7 days. 15 g 08/05/2024 08/12/2024 Active Start: 05-07-2024 End: 05-17-2024 mupirocin (BACTROBAN) 2 % oi ntment Indications: Secondary infection of skin Apply to affected area three times a day for 10 days. 22 g 05/07/2024 05/17/2024 Active mupirocin (BACTR OBAN) 2 % ointment Apply topically 3 times daily Apply topically 3 times daily. 0 Active nortriptyline 10 mg oral capsule (5 sources) Tricyclic Antidepressant Start: 03-30-2023 End: 06-19-2023 take 1 capsule by mouth once daily at bedtime nortriptyline (PAMELOR) 10 mg capsule Take 1 capsule by mouth daily at bedtime. 30 capsule 5 03/30/2023 06/19/2023 Discontinued (Discontinued by Patient) Comment on above: Take 1 capsule by mo [facility] daily at bedtime. OLANZapine 2.5 mg oral tablet (20 sources) Atypical Antipsychotic Start: 01-15-2024 End: 09-09-2024 take 1 tablet by mouth once daily at bedtime OLANZapine (ZYPREXA) 2.5 mg tablet TAKE 1 TABLET BY MOUTH ONCE DAILY AT BEDTIME 90 tablet 3 09/09/2024 Active oxyCODONE hydrochloride 5 mg oral tablet (20 sources) Opioid Agonist Start: 06-30-2024 take 1 tablet by mouth every eight hours as needed for pain Oxycodone 5 mg tablet Active 5 mg PO Q8H as needed for pain 6 2 0 June 30, 2024 End stage renal failure on dialysis End stage renal disease Dependence on renal dialysis Start: 02-17-2024 End: 04-28-2024 take 1 tablet by mouth every six hours as needed for pain Oxycodone 5 mg Tablet Discontinued 5 mg PO EVERY 6 HOURS as needed for pain 20 5 0 February 17, 2024 April 28, 2024 3:26pm [employer] fracture of left femur Start: 10-25-2023 End: 11-14-2023 take 1 tablet by mouth every four hours as needed for pain Oxycodone 5 mg Tablet Discontinued 5 mg PO EVERY 4 HOURS NEEDED as needed for Pain Score 4-10 October 28, 2023 12:00am November 14, 2023 6:14am pantoprazole 40 mg delayed release oral tablet (20 sources) Proton Pump Inhibitor Start: 03-24-2021 End: 09-02-2025 take 1 tablet by mouth twice daily pantoprazole DR (PROTONIX) 40 mg tablet Take 1 tablet by mouth two times a day. 180 tablet 3 09/02/2024 09/02/2025 Active Start: 08-22-2017 End: 11-17-2019 take 1 tablet by mouth once daily Pantoprazole 20 mg tablet,delayed release (DR/EC) Discontinued 20 mg PO daily 180 3 January 29, 2019 11:59am November 17, 2019 8:58am Comment on above: Take 1 tablet by marcella th twice daily. Take 1 tablet by marcella th two times a day. perflutren lipid microspheres (DEFINITY) injection 1.65 mg (3 sources) Start: 04-16-2019 End: 04-19-2019 perflutren lipid microspheres (DEFINITY) injection 1.65 mg Start: 03-04-2019 End: 03-07-2019 perflutren lipid microsphere s (DEFINITY) injection 1.65 mg Start: 03-03-2019 End: 03-06-2019 perflutren lipid microsphere s (DEFINITY) injection 1.65 mg polyethylene glycol 3350 32086 mg powder for oral solution (20 sources) Osmotic Laxative Start: 12-04-2023 Polyethylene Glycol 3350 (Miralax) 17 gram/dose powder Active 17 g PO DAILY as needed for constipation December 04, 2023 12:00am Start: 10-25-2023 End: 12-04-2023 Polyethylene Glycol 3350 (Mi ralax) 17 gram/dose powder Discontinued 17 g PO TWICE A DAY 119 0 October 25, 2023 12:00am December 04, 2023 2:20pm End: 03-30-2023 polyethylene glycol 3350 (IA RALAX, GLYCOLAX) 17 gram/dose powder Take by mouth once daily. Dissolve dose in 4 - 8 ounces of liquid and take as directed. 03/30/2023 Discontinued Comment on above: Take by mouth once d aily. Dissolve dose in 4 - 8 ounces of liquid and take as directed. triamcinolone acetonide 0.25 mg/ml topical cream (7 sources) Corticosteroid Start: 12-12-2018 triamcinolone (KENALOG) 0.025 % cream Apply 1 applicator topically as needed 0 12/12/2018 Active Completed/Discontinued Medications Medication Drug Class(es) Dates Sig (Normalized) Sig (Original) acetaminophen 325 mg / HYDROcodone bitartrate 5 mg oral tablet (20 sources) Opioid Agonist Start: 09-11-2023 End: 10-25-2023 Hydrocodone-Acetami nophen 5-325 mg tablet Discontinued 1 {tbl} PO EVERY 4 HOURS NEEDED as needed for Pain 10 3 0 October 11, 2023 October 25, 2023 11:40am Pain Pain, unspecified Start: 06-23-2022 End: 11-20-2022 Hydrocodone-Acetaminophen 5- 325 mg tablet Discontinued 1 {tbl} PO EVERY 6 HOURS NEEDED as needed for Pain 10 3 0 June 23, 2022 November 20, 2022 8:26am Calculus of ureter Calculus of ureter Start: 06-23-2022 take 1 tablet by marcella th every six hours as needed Hydrocodone-Acetaminophen Active 1 TABLE T PO EVERY 6 HOURS NEEDED 10 3 June 23, 2022 End: 01-03-2024 take 1 tablet by mouth every six hours as needed HYDROcodone-acetaminophen 2.5-325 mg tab Take 1 tablet by mouth every 6 hours as needed for pain. Given at [facility] ER 09/10/23 01/03/2024 Discontinued (Course of therapy completed) amLODIPine 10 mg oral tablet (20 sources) Dihydropyridine Calcium Channel Cookie Start: 06-29-2014 End: 01-17-2024 take 1 tablet by mouth once daily Amlodipine 10 mg tablet Discontinued 10 mg PO DAILY 90 3 September 28, 2020 11:35am March 24, 2021 2:30pm Start: 01-23-2014 End: 06-29-2014 take 1 tablet by mouth once daily Amlodipine 5 MG tablet Discontinued 5 mg PO DAILY January 23, 2014 12:00am June 29, 2014 8:19am Comment on above: Take 1 tablet by marcella th once daily. amoxicillin 500 mg oral capsule (14 sources) Penicillin-class Antibacterial Start: 10-21-19 End: 11-08-19 take 1 capsule by mouth three times daily amoxicillin (AMOXIL) 500 mg capsule Take 500 mg by mouth three times a day. 10/20/2024 11/07/2024 Discontinued Start: 04-29-2024 take 4 tablets by mouth once A moxicillin 500 mg tablet Active 2000 mg PO ONCE 4 0 April 29, 2024 1:00am Take one hour prior to dental cleanings/procedure apixaban 5 mg oral tablet (19 sources) Factor Xa Inhibitor Start: 12-04-2023 End: 02-14-2024 take 1 tablet by mouth twice daily Apixaban (Eliquis) 5 mg Tablet Discontinued 5 mg PO TWICE A DAY December 04, 2023 12:00am February 15, 2024 12:34am Start: 10-25-2023 End: 12-04-2023 take 2 tablets by mouth twice daily, then take 1 tablet by mouth twice daily Apixaban (Eliquis) 5 mg Tablet Discontinued 10 mg PO TWICE A DAY 0 0 October 25, 2023 12:00am December 04, 2023 2:20pm On Hold: Resume on 11/19/23. two twice a day for 13 doses, then one twice a day thereafter-take for 12 weeks End: 01-03-2024 take 1 tablet by mouth twice daily ELIQUIS 2.5 mg tab(s) Take 2.5 mg by mouth two times a day. 01/03/2024 Discontinued (Clinical Decision) benzonatate 100 mg oral capsule (17 sources) Non-narcotic Antitussive Start: 06-06-2022 End: 03-30-2023 take 2 capsules by mouth every eight hours as needed benzonatate (TESSALON PERLE) 100 mg capsule Take 2 capsules by mouth three times daily as needed. 40 capsule 06/06/2022 03/30/2023 Discontinued Comment on above: Take 2 capsules by m outh three times daily as needed. Cefazolin 2 gram recon soln (9 sources) Start: 10-23-2023 End: 12-04-2023 Cefazolin 2 gram recon soln Discontinued 2 g IV .see below 33 0 October 23, 2023 12:00am December 04, 2023 2:22pm stop date 11/25/23. Dx: strep bacteremia. cefazolin iv with dialysis: 2gm on Mon, 2gm on Wed, 3gm on Fri. Weekly bmp and cbc. Fax to [phone]. Start: 10-23-2023 End: 12-04-2023 Cefazolin 2 gram recon soln Discontinued 2 g IV .see below 33 October 23, 2023 12:00am December 04, 2023 2:22pm stop date 11/25/23. Dx: strep bacteremia. cefazolin iv with dialysis: 2gm on Mon, 2gm on Wed, 3gm on Fri. Weekly bmp and cbc. Fax to [phone]. clindamycin 10 mg/ml topical lotion (12 sources) Lincosamide Antibacterial Start: 08-22-2017 End: 2018 Clindamycin Phosphate 1 % lotion Discontinued 1 NMA TOPICAL daily August 22, 2017 12:00am 2018 4:55pm clopidogrel 75 mg oral tablet (20 sources) [id number] Platelet Inhibitor Start: 08-15-2017 End: 12-30-2020 take 1 tablet by mouth once daily Clopidogrel 75 mg tablet Discontinued 75 mg PO daily 90 3 January 06, 2019 2:59pm January 29, 2019 12:00pm ubidecarenone 100 mg oral capsule (19 sources) Start: 07-10-2014 End: 2018 take 10 capsules by mouth once daily Coenzyme Q10 100 MG capsule Discontinued 100 mg PO DAILY July 10, 2014 12:00am 2018 4:55pm docusate sodium 50 mg / sennosides, group home 8.6 mg oral tablet (9 sources) Start: 10-25-2023 End: 02-14-2024 Sennosides-Docusa te Sodium (Stimulant Laxative Plus) 8.6-50 mg Tablet Discontinued 2 {tbl} PO TWICE A DAY 0 0 October 25, 2023 12:00am February 15, 2024 12:35am furosemide 20 mg oral tablet (20 sources) Loop Diuretic Start: 09-11-2023 End: 01-03-2024 take 1 tablet by mouth once daily Furosemide 20 mg tablet Discontinued 20 mg PO DAILY 14 0 September 11, 2023 12:00am October 25, 2023 11:40am heart Start: 06-29-2021 End: 05-25-2022 take 1 tablet by mouth once daily Furosemide (Lasix) 20 mg tablet Discontinued 20 mg PO DAILY June 30, 2021 12:00am May 15, 2022 9:38am End: 10-05-2023 furosemide (LASIX ORAL) Take by mouth. Given at [facility] ER 09/10/23 10/05/2023 Discontinued (Course of therapy completed) End: 10-05-2023 furosemide (LASIX ORAL) Take by mouth. Given at [facility] 09/10/23 0 10/05/2023 Discontinued (Course of therapy completed) furosemide (LASI X ORAL) Take by mouth. Given at [facility] 09/10/23 0 Active Comment on above: Take 1 tablet by marcella th once daily. glucosamine hydrochloride 1500 mg oral tablet (12 sources) Start: 2017 End: 2017 take 1 tablet by mouth once daily Glucosamine Hcl 1,500 mg tablet Discontinued 1500 mg PO daily August 22, 2017 12:00am 2018 4:55pm 12 hr guaiFENesin 600 mg extended release oral tablet (17 sources) Start: 2022 End: 2022 take 2 tablets by mouth twice daily guaiFENesin (MUCINEX) 600 mg 12 hr tablet Take 2 tablets by mouth twice daily. 24 tablet 06/06/2022 03/30/2023 Discontinued (Course of therapy completed) Comment on above: Take 2 tablets by mo [facility] twice daily. hydroCHLOROthiazide 25 mg oral tablet (20 sources) Thiazide Diuretic Start: 2013 End: 2020 take 1 tablet by mouth once daily Hydrochlorothiazide 25 mg tablet Discontinued 25 mg PO DAILY 90 November 17, 2019 9:35am December 30, 2020 8:31am 24 hr isosorbide mononitrate 120 mg extended release oral tablet (20 sources) Nitrate Vasodilator Start: 2014 End: 2017 take 1 tablet by mouth once daily Isosorbide Mononitrate 120 MG tablet Discontinued 120 mg PO DAILY 30 0 June 29, 2014 12:00am August 22, 2017 1:55pm Start: 01-23-2014 End: 06-29-2014 take 1 tablet by mouth once daily Isosorbide Mononitrate 60 MG tablet Discontinued 60 mg PO DAILY January 23, 2014 12:00am June 29, 2014 8:20am lisinopril 40 mg oral tablet (20 sources) Angiotensin Converting Enzyme Inhibitor Start: 03-03-2019 take 40 mg by mouth once daily 40 mg, Oral, DAILY, First dose on Sun03/03/19 at 0915 Start: 01-23-2014 End: 09-24-2020 take 1 tablet by mouth once daily Lisinopril 40 mg tablet Discontinued 40 mg PO DAILY 90 November 17, 2019 9:35am September 24, 2020 3:04pm losartan potassium 100 mg oral tablet (20 sources) Angiotensin 2 Receptor Cookie Start: 09-24-2020 End: 05-15-2022 take 1 tablet by mouth once daily Losartan 100 mg tablet Discontinued 100 mg PO DAILY 90 3 September 24, 2020 3:06pm March 24, 2021 2:30pm melatonin 3 mg oral tablet (20 sources) Start: 10-25-2023 End: 04-28-2024 take 1 tablet by mouth at bedtime as needed Melatonin 3 mg Tablet Discontinued 3 mg PO AT BEDTIME NEEDED as needed for Insomnia 0 0 October 25, 2023 12:00am April 28, 2024 3:26pm Menthol / Zinc Oxide (9 sources) Start: 10-25-2023 End: 10-28-2023 Menthol-Zinc Oxide (Calmoseptine) 0.44-20.6 % Ointment Discontinued 1 NMA TOPICAL TWICE A DAY 0 0 October 25, 2023 12:00am October 28, 2023 11:38pm Please contact the information source for Protocol details. Start: 10-25-2023 End: 10-28-2023 Menthol-Zinc Oxide (Calmosep miko) 0.44-20.6 % Ointment Discontinued 1 NMA TOPICAL TWICE A DAY 0 October 25, 2023 12:00am October 28, 2023 11:38pm Please contact the information source for Protocol details. Multivitamin With Folic Acid (3 sources) Start: 01-23-2014 End: 2018 take 1 tablet by mouth once daily Multivitamin With Folic Acid Discontinued 1 TABLET PO DAILY January 23, 2014 12:00am 2018 4:55pm Multivitamin With Folic Acid 1 TABLET tablet (9 sources) Start: 01-23-2014 End: 2018 take 1 tablet by mouth once daily Multivitamin With Folic Acid 1 TABLET tablet Discontinued 1 {tbl} PO DAILY January 23, 2014 12:00am 2018 4:55pm nitroglycerin 0.4 mg sublingual tablet (20 sources) Nitrate Vasodilator Start: 01-23-2014 End: 06-30-2024 Nitroglycerin 0.4 mg tablet, sublingual Discontinued 0.4 mg SL Q5M as needed for Chest Pain 01 07March 26, 2021 11:45am May 15, 2022 10:00am Start: 01-23-2014 End: 05-15-2022 Nitroglycerin Discontinued 0 .4 MG SL Q5M 2021 11:45am May 15, 2022 10:00am Comment on above: 1 sl q 5min prn ches t pain nystatin [id number] unt/ml topical cream (20 sources) Polyene Antifungal Start: 09-11-2023 End: 10-25-2023 Nystatin 100,000 unit/gram cream Discontinued 1 NMA TOPICAL TWICE A DAY September 11, 2023 12:00am October 25, 2023 11:41am right chest Start: 06-19-2023 End: 03-11-2024 nystatin (MYCOSTATIN) cream Apply to affected area two times a day. 30 g 1 06/19/2023 03/11/2024 Discontinued (Course of therapy completed) Comment on above: Apply to affected ar ea two times a day. Mijlj-[id number]-Epa-Fish Oil-D3 (3 sources) Start: 01-24-20 End: 12-31-19 Aqtth-4j-Bce-Epa-Fis h Oil-D3 Discontinued 1 EACH PO DAILY January 23, 2014 12:00am December 30, 2020 8:31am Ufiup-6v-Qhk-Epa-Fish Oil-D3 1 EACH capsule (9 sources) Start: 01-24-20 End: 12-31-19 take 1 capsule by mouth once daily Uzdri-3l-Zif-Epa-Fis h Oil-D3 1 EACH capsule Discontinued 1 NMA PO DAILY January 23, 2014 12:00am December 30, 2020 8:31am omeprazole 20 mg delayed release oral capsule (12 sources) Proton Pump Inhibitor Start: 08-16-19 End: 08-23-19 take 1 capsule by mouth once daily Omeprazole 20 mg capsule,delayed release(DR/EC) Discontinued 20 mg PO daily August 15, 2017 12:00am August 22, 2017 1:52pm ondansetron 4 mg disintegrating oral tablet (20 sources) Serotonin-3 Receptor Antagonist Start: 12-25-19 take 1 tablet by mouth every eight hours as needed for nausea and vomiting Ondansetron 4 mg tablet,disintegratin g Active 4 mg PO EVERY 8 HOURS NEEDED as needed for nausea and vomiting December 25, 2023 12:00am Start: 10-11-2023 End: 12-22-2024 take 1 tablet by mouth every six hours as needed ondansetron orally disintegrating (ZOFRAN ODT) 4 mg disintegrating tablet Take 1 tablet by mouth every 6 hours as needed for nausea/vomiting. 30 tablet 1 09/08/2024 12/22/2024 Discontinued Start: 10-11-2023 End: 10-25-2023 take 1 tablet by mouth every eight hours as needed for nausea Ondansetron 4 mg tablet,disintegrating Discontinued 4 mg PO EVERY 8 HOURS NEEDED as needed for Nausea 10 0 October 11, 2023 12:00am October 25, 2023 11:41am Start: 06-19-2023 End: 01-03-2024 take 1 tablet by mouth every eight hours as needed for nausea Ondansetron Hcl 8 mg tablet Discontinued 8 mg PO EVERY 8 HOURS NEEDED as needed for nausea/vomiting September 11, 2023 12:00am October 25, 2023 11:41am Start: 08-02-2022 End: 09-01-2022 take 1 tablet by mouth every eight hours as needed ondansetron (ZOFRAN) 4 mg tablet Take 1 tablet by mouth every 8 hours as needed for nausea/vomiting. 30 tablet 0 08/02/2022 09/01/2022 Active Start: 06-23-2022 End: 11-20-2022 take 1 tablet by mouth every eight hours as needed for nausea Ondansetron 4 mg tablet,disintegrating Discontinued 4 mg PO EVERY 8 HOURS NEEDED as needed for Nausea 10 0 June 23, 2022 12:00am November 20, 2022 8:27am Start: 01-07-2021 End: 05-15-2022 take 1 tablet by mouth every eight hours as needed for nausea Ondansetron Hcl 8 mg tablet Discontinued 8 mg PO Q8H as needed for Nausea January 07, 2021 12:00am May 15, 2022 9:37am Comment on above: Take 1 tablet by marcella th every 8 hours as needed for nausea/vomiting. perflutren lipid microspheres 1.3 mL in NaCl (PF) 0.9% 10 mL injection (DEFINITY) (20 sources) Start: 03-22-2021 End: 06-21-2022 perflutren lipid microspheres 1.3 mL in NaCl (PF) 0.9% 10 mL injection (DEFINITY) Potassium (20 sources) End: 01-03-2024 POTASSIUM ORAL Take by mouth. 01/03/2024 Discontinued (Other) POTASSIUM ORAL T andreina by mouth. Active POTASSIUM ORAL T andreina by mouth. 0 Active potassium chloride 20 meq extended release oral tablet (20 sources) Start: 12-04-2023 End: 02-14-2024 take 10 mEq by mouth once daily Potassium Chloride 20 mEq tablet extended release Discontinued 10 meq PO DAILY December 04, 2023 12:00am February 15, 2024 12:35am Start: 09-11-2023 End: 10-25-2023 take 1 tablet by mouth twice daily Potassium Chloride 20 mEq tablet extended release Discontinued 20 meq PO TWICE A DAY 20 0 September 11, 2023 12:00am October 25, 2023 11:43am supplement Start: 03-24-2021 End: 05-15-2022 Potassium Chloride 20 mEq ta blet,ER particles/crystals Discontinued 20 meq PO DAILY March 24, 2021 1:00am May 15, 2022 9:37am POTASSIUM On Hold: Hold for 1 week and follow with BMP in 1 week with PCP Comment on above: Take 1 tablet by marcella once daily. predniSONE 10 mg oral tablet (2 sources) Start: 02-27-2023 predniSONE (DELTASONE) 10 mg tablet Take 4 tabs daily for 3 days, then 2 tabs daily for 3 days, then 1 tab daily for 3 days with food. 21 tablet 0 02/27/2023 Active Comment on above: Take 4 tabs daily fo r 3 days, then 2 tabs daily for 3 days, then 1 tab daily for 3 days with food. 12 hr ranolazine 500 mg extended release oral tablet (20 sources) Anti-anginal Start: 03-03-2019 End: 12-30-2020 take 1 tablet by mouth twice daily Ranolazine 500 mg tablet extended release 12 hr Discontinued 500 mg PO TWICE A DAY 180 3 November 17, 2019 9:35am December 30, 2020 8:31am On Hold: Not eating much, has J tube from [place] surgery Start: 10-28-2018 End: 11-17-2019 take 1 tablet by mouth twice daily Ranolazine 500 mg tablet extended release 12 hr Discontinued 1000 mg PO TWICE A DAY October 28, 2018 9:03am November 17, 2019 9:36am Start: 08-15-2017 End: 10-28-2018 take 1 tablet by mouth twice daily Ranolazine 500 mg tablet extended release 12 hr Discontinued 500 mg PO TWICE A DAY 180 3 June 18, 2018 11:22am October 28, 2018 9:03am sodium chloride 0.111 meq/ml nasal spray (20 sources) Start: 03-17-2022 End: 01-03-2024 sodium chloride (SALINE MIST ) 0.65 % nasal spray Use 1 Hutchins in the nose as needed for cold/allergy symptoms. 30 mL 1 03/17/2022 01/03/2024 Discontinued (Other) Start: 03-22-2021 End: 06-21-2022 sodium chloride 0.9 % (flush ) 10 mL (BD POSIFLUSH) Start: 03-03-2019 End: 03-07-2019 sodium chloride flush 0.9 % injection 10 mL Start: 03-03-2019 0.9 % sodium c hloride infusion Comment on above: Use 1 Hutchins in the n ose as needed for cold/allergy symptoms. Zinc (12 sources) Start: 07-30-2018 End: 12-30-2020 take 1 tablet by mouth once daily Zinc 50 mg tablet Discontinued 50 mg PO DAILY July 30, 2018 12:00am December 30, 2020 8:31am Start: 07-30-2018 End: 12-30-2020 take 50 mg by mouth once daily Zinc Discontinued 50 MG PO DAILY July 30, 2018 12:00am December 30, 2020 8:31am Problems Active Problems Problem Classification Problem Date Documented Da te Episodic/Chronic Abdominal pain (15 sources) Abdominal pain; Translations: [Unspecified abdominal pain] 03-10-2021 Episodic Acute and unspecified renal failure (2 sources) Renal failure syndrome; Translations: [Unspecified kidney failure] Onset: 5 06-11-2024 Chronic Acute and unspecified renal failure (19 sources) Acute injury of kidney; Translations: [Acute kidney failure, unspecified] Episodic Adjustment disorders (20 sources) Reactive depression (situational); Translations: [Adjustment disorder with depressed mood] Onset: 6 08-27-2020 Chronic Aortic; peripheral; and visceral artery aneurysms (20 sources) Ascending aorta dilatation; Translations: [Thoracic aortic ectasia] Onset: 4 09-21-2023 Chronic Asthma (20 sources) Asthma; Translations: [Unspecified asthma, uncomplicated] Onset: 6 08-27-2020 Chronic Bacterial infection; unspecified site (9 sources) Infection due to Streptococcus group G; Translations: [Other streptococcus as the cause of diseases classified elsewhere] 10-17-2023 Episodic Cancer of esophagus (20 sources) Adenocarcinoma of esophagus; Translations: [Malignant neoplasm of esophagus, unspecified] Onset: Chronic Comment on above: Concurrent chemother apy/radiation w/ carboplatin and paclitaxel 05/24/20-06/23/2020; Roger Esophagectomy 08/09/2020; Present treatment Adjuvant Nivolumab Chronic kidney disease (20 sources) Chronic kidney disease stage 4; Translations: [Chronic kidney disease, stage 4 (severe)] Onset: 4 01-03-2024 Chronic Comment on above: DIALYSIS-[place], [place], [place] Coagulation and hemorrhagic disorders (9 sources) Thrombocytopenic disorder; Translations: [Thrombocytopenia, unspecified] 10-11-2023 Chronic Complication of device; implant or graft (20 sources) Arteriosclerosis of coronary artery bypass graft; Translations: [Atherosclerosis of coronary artery bypass graft(s) without angina pectoris] 11-17-2019 Chronic Congestive heart failure; nonhypertensive (11 sources) Chronic heart failure co-occurrent with normal ejection fraction; Translations: [Chronic diastolic (congestive) heart failure] 10-23-2023 Chronic Coronary atherosclerosis and other heart disease (20 sources) Coronary atherosclerosis; Translations: [Coronary arteriosclerosis in [place] artery] Onset: 9 03-12-2019 Chronic Comment on above: VMM-UBZ-Vlztek RPDA w/ 2.25 x 16 mm Promus Premier, APPLE-Distal RCA w/ 4.0 x 16 mm Promus Premier and APPLE-Mid RCA w/ 4.0 x 16 mm Promus Premier 07/23/2014; VFU-RIV-Qkoebh SVG-D1 w/ 3.5 x 18 mm Xience Taylor Stent 12/31/18; CABG x 3: MCKEON-LAD, SURAJ-Ramus, SVG-D1 09/18/2002; Deficiency and other anemia (20 sources) Iron deficiency anemia due to blood loss; Translations: [Iron deficiency anemia secondary to blood loss (chronic)] Onset: 1 Chronic Deficiency and other anemia (11 sources) Anemia; Translations: [Anemia, unspecified] 01-06-2024 Episodic Deficiency and other anemia (9 sources) Chronic anemia; Translations: [Anemia, unspecified] 08-07-2024 Episodic Disorders of lipid metabolism (20 sources) Mixed hyperlipidemia; Translations: [Mixed hyperlipidemia] Onset: 4 08-27-2020 Chronic Esophageal disorders (20 sources) Gastroesophageal reflux disease; Translations: [Gastro-esophageal reflux disease without esophagitis] Onset: 0 08-27-2020 Chronic Essential hypertension (20 sources) Essential hypertension; Translations: [Benign essential hypertension] Onset: 9 03-12-2019 Chronic Fracture of neck of femur (hip) (19 sources) Closed fracture of intracapsular section of femur; Translations: [Unspecified intracapsular fracture of left femur, subsequent encounter for closed fracture with routine healing] 03-03-2024 Episodic Gastroduodenal ulcer (except hemorrhage) (1 source) Ulcer of duodenum; Translations: [Duodenal ulcer, unspecified as acute or chronic, without hemorrhage or perforation] Chronic Gastrointestinal hemorrhage (20 sources) Upper gastrointestinal bleeding; Translations: [Gastrointestinal hemorrhage, unspecified] Onset: 1 05-25-2020 Episodic Heart valve disorders (20 sources) Aortic stenosis, non-rheumatic ; Translations: [History of aortic valve replacement] Onset: 6 03-03-2019 Chronic Comment on above: TAVR w/ #26 Vilma S 3 Valve 03/03/2019; Hyperplasia of prostate (20 sources) Benign prostatic hyperplasia; Translations: [Benign prostatic hyperplasia without lower urinary tract symptoms] Onset: 5 08-27-2020 Chronic Inflammatory conditions of male genital organs (1 source) Balanitis; Translations: [Balanitis] Chronic Miscellaneous mental health disorders (20 sources) Lack or loss of sexual desire; Translations: [Hypoactive sexual desire disorder] Onset: 2 Chronic Mycoses (1 source) Candidiasis of mouth; Translations: [Candidal stomatitis] 01-31-2024 Episodic Nausea and vomiting (7 sources) Nausea; Translations: [Nausea] Onset: 4 06-19-2023 Episodic Nutritional deficiencies (20 sources) Moderate protein energy malnutrition; Translations: [Moderate protein-calorie malnutrition] Onset: 2 05-18-2021 Chronic Osteoporosis (4 sources) Senile osteoporosis; Translations: [Age-related osteoporosis without current pathological fracture] Onset: 5 12-23-2024 Chronic Other acquired deformities (20 sources) Postural kyphosis; Translations: [Postural kyphosis, site unspecified] Onset: 4 07-12-2023 Chronic Other aftercare (9 sources) Long-term current use of anticoagulant; Translations: [MCFP (current) use of anticoagulants] 11-14-2023 Episodic Other aftercare (9 sources) Long-term current use of drug therapy; Translations: [Other long term acute care registered nurse (current) drug therapy] 08-12-2018 Episodic Other aftercare (1 source) Wound finding; Translations: [Encounter for other specified aftercare] 08-05-2024 Episodic Other circulatory disease (18 sources) Arteriovenous fistula; Translations: [Arteriovenous fistula, acquired] 07-22-2024 Chronic Other circulatory disease (1 source) Arteriovenous fistula, acquired; Translations: [Arteriovenous fistula, acquired] Onset: Chronic Other circulatory disease (1 source) Personal history of other diseases of the circulatory system; Translations: [Personal history of other diseases of the circulatory system] Onset: 8 Episodic Other circulatory disease (1 source) Bleeds profusely; Translations: [Hemorrhage, not elsewhere classified] 01-01-2024 Episodic Other circulatory disease (9 sources) Low blood pressure; Translations: [Hypotension, unspecified] 10-12-2023 Episodic Other circulatory disease (9 sources) History of clinical finding in subject; Translations: [Personal history of other diseases of the circulatory system] 10-12-2023 Episodic Other circulatory disease (9 sources) H/O: heart disorder; Translations: [Personal history of other diseases of the circulatory system] 10-12-2023 Episodic Other circulatory disease (1 source) Hypotension, unspecified; Translations: [Hypotension, unspecified] Onset: Episodic Other endocrine disorders (4 sources) Hyperprolactinemia; Translations: [Hyperprolactinemia] 09-08-2024 Chronic Other endocrine disorders (1 source) FSH hypersecretion 09-26-2024 Chronic Other endocrine disorders (1 source) Hyperprolactinemia; Translations: [Hyperprolactinemia (HCC)] Onset: Chronic Other fractures (1 source) Compression fracture of thoracic vertebra; Translations: [Wedge compression fracture of unspecified thoracic vertebra, initial encounter for closed fracture] 02-21-2023 Episodic Other fractures (20 sources) Compression fracture of lumbar spine; Translations: [Wedge compression fracture of unspecified lumbar vertebra, subsequent encounter for fracture with routine healing] Onset: 5 10-07-2024 Episodic Other fractures (1 source) Collapse of vertebra; Translations: [Collapsed vertebra, not elsewhere classified, lumbar region, initial encounter for fracture] 11-07-2024 Episodic Other fractures (4 sources) Compression fracture of L2; Translations: [Wedge compression fracture of second lumbar vertebra, initial encounter for closed fracture] 11-14-2024 Episodic Other fractures (4 sources) Fracture of third lumbar vertebra; Translations: [Wedge compression fracture of third lumbar vertebra, initial encounter for closed fracture] 11-14-2024 Episodic Other fractures (1 source) Wedge compression fracture of first lumbar vertebra, initial encounter for closed fracture; Translations: [Wedge compression fracture of first lumbar vertebra, initial encounter for closed fracture] Onset: 5 Episodic Other gastrointestinal disorders (20 sources) Malabsorption - iron; Translations: [Intestinal malabsorption, unspecified] Onset: 1 08-27-2020 Chronic Other gastrointestinal disorders (12 sources) Constipation; Translations: [Constipation, unspecified] 03-10-2021 Episodic Other inflammatory condition of skin (1 source) Intertrigo; Translations: [Erythema intertrigo] 06-19-2023 Episodic Other injuries and conditions due to external causes (2 sources) Injury of ribs; Translations: [Unspecified injury of thorax, initial encounter] Episodic Other liver diseases (9 sources) Hyperbilirubinemia; Translations: [Unspecified jaundice] 10-12-2023 Episodic Other lower respiratory disease (1 source) Dyspnea, unspecified; Translations: [Dyspnea, unspecified] Onset: 8 Episodic Other lower respiratory disease (14 sources) Dyspnea on exertion; Translations: [Other forms of dyspnea] 01-16-2021 Episodic Other lower respiratory disease (1 source) Multiple nodules of lung; Translations: [Other nonspecific abnormal finding of lung field] 01-30-2024 Episodic Other lower respiratory disease (9 sources) Hemoptysis; Translations: [Hemoptysis] 11-14-2023 Episodic Other lower respiratory disease (9 sources) Respiratory insufficiency; Translations: [Other abnormalities of breathing] 11-13-2023 Episodic Other lower respiratory disease (9 sources) Dyspnea; Translations: [Dyspnea, unspecified] 11-13-2023 Episodic Other nervous system disorders (9 sources) Disorder of brain; Translations: [Other encephalopathy] 10-12-2023 Chronic Other non-traumatic joint disorders (9 sources) Effusion of joint of left knee; Translations: [Effusion, left knee] 11-02-2023 Episodic Other non-traumatic joint disorders (9 sources) Effusion of right knee joint; Translations: [Effusion, right knee] 11-02-2023 Episodic Other non-traumatic joint disorders (9 sources) Pain in unspecified knee; Translations: [Knee pain] 10-25-2023 Episodic Other nutritional; endocrine; and metabolic disorders (1 source) Obese class I; Translations: [Obesity (BMI 30.0-34.9)] Onset: 9 03-12-2019 Other upper respiratory disease (1 source) Seasonal allergy; Translations: [Other seasonal allergic rhinitis] 01-31-2024 Chronic Other upper respiratory disease (1 source) Seasonal allergic rhinitis; Translations: [Other seasonal allergic rhinitis] 12-24-2024 Chronic Other upper respiratory disease (1 source) Other seasonal allergic rhinitis; Translations: [Seasonal allergic rhinitis, unspecified trigger] Onset: Chronic Other upper respiratory disease (1 source) Congestion of nasal sinus; Translations: [Nasal congestion] Episodic Other upper respiratory infections (3 sources) Chronic sinusitis, unspecified; Translations: [Unspecified sinusitis (chronic)] Onset: 5 02-27-2023 Chronic Other upper respiratory infections (13 sources) Upper respiratory infection; Translations: [Acute upper respiratory infection, unspecified] Onset: 5 08-12-2018 Episodic Pathological fracture (3 sources) Pathological fracture of thoracic vertebra; Translations: [Pathological fracture, other site, initial encounter for fracture] 08-10-2023 Episodic Ni-; endo-; and myocarditis; cardiomyopathy (except that caused by tuberculosis or sexually transmitted disease) (9 sources) Pericardial effusion; Translations: [Pericardial effusion] 02-15-2024 Episodic Residual codes; unclassified (1 source) Awaiting transplantation; Translations: [Awaiting organ transplant status] 06-11-2024 Chronic Residual codes; unclassified (1 source) Awaiting organ transplant status; Translations: [Awaiting organ transplant] Onset: 5 Chronic Residual codes; unclassified (3 sources) Early satiety; Translations: [Early satiety] 01-15-2024 Episodic Residual codes; unclassified (1 source) Early satiety; Translations: [Early satiety] Onset: 4 Episodic Residual codes; unclassified (1 source) Intolerant of cold; Translations: [Other general symptoms and signs] 03-11-2024 Episodic Residual codes; unclassified (1 source) Pain; Translations: [Pain, unspecified] 06-30-2024 Episodic Residual codes; unclassified (9 sources) Patient noncompliance - general; Translations: [General patient noncompliance] 11-13-2023 Episodic Residual codes; unclassified (10 sources) Tunneled central venous catheter in situ; Translations: [Presence of other specified devices] 10-15-2024 Episodic Residual codes; unclassified (1 source) Localized edema; Translations: [Localized edema] Onset: 5 Episodic Septicemia (except in labor) (18 sources) Sepsis; Translations: [Sepsis, unspecified organism] 10-12-2023 Episodic Spondylosis; intervertebral disc disorders; other back problems (20 sources) Degeneration of lumbar intervertebral disc; Translations: [Other intervertebral disc degeneration, lumbar region] Onset: 0 08-27-2020 Chronic Spondylosis; intervertebral disc disorders; other back problems (19 sources) Chronic low back pain; Translations: [Chronic midline low back pain without sciatica] 06-19-2023 Episodic Thyroid disorders (1 source) Acquired hypothyroidism; Translations: [Hypothyroidism, unspecified] Chronic Unclassified (1 source) Unknown / UNK(Unknown) Onset: 8 Unclassified (1 source) APPOINTMENT CANCELLED 02-19-2023 Unclassified (1 source) Radiology NM Onset: 4 Unclassified (1 source) esophageal adeno Onset: 4 Unclassified (1 source) Fracture of tenth thoracic vertebra 10-07-2024 Unclassified (2 sources) Compression fracture of L1 vertebra Unclassified (2 sources) Compression fracture of L2 vertebra Unclassified (2 sources) Compression fracture of L3 vertebra Unclassified (2 sources) Compression fracture of L4 vertebra Unclassified (2 sources) Compression fracture of L5 vertebra Unclassified (2 sources) S32.010A - Wedge compression fracture of first lumbar vertebra, initial encounter for closed fracture,S32.020A - Wedge compression fracture of second lumbar vertebra, initial encounter for closed fracture,S32.030A - Wedge compression fracture of third lumbar vertebra, initial encounter for closed fracture,S32.040A - Wedge compression fracture of fourth lumbar vertebra, initial encounter for closed fracture,S32.050A - Wedge compression fracture of fifth lumbar vertebra, initial encounter for closed fracture Unclassified (1 source) Low back pain, unspecified; Translations: [Low back pain, unspecified] Onset: 5 Unclassified (1 source) Lumbar back pain; Translations: [Lumbar back pain] Onset: 5 Unclassified (1 source) Acute bilateral low back pain without sciatica; Translations: [Acute bilateral low back pain without sciatica] Onset: 5 Urinary tract infections (9 sources) Urinary tract infectious disease; Translations: [Urinary tract infection, site not specified] 10-12-2023 Episodic Past or Other Problems Problem Classification Problem Date Documented Date Episodic/Chronic Abdominal hernia (20 sources) Inguinal hernia; Translations: [Unilateral inguinal hernia, without obstruction or gangrene, not specified as recurrent] Onset: 01-21-2007 Resolved: 07-26-2015 07-26-2015 Episodic Administrative/social admission (20 sources) Advance directive discussed with patient; Translations: [Other specified counseling] Onset: 02-09-2022 Episodic Allergic reactions (20 sources) Contact dermatitis; Translations: [Unspecified contact dermatitis, unspecified cause] Onset: 05-10-2009 Resolved: 07-26-2015 07-26-2015 Episodic Calculus of urinary tract (20 sources) History of calculus of kidney; Translations: [Personal history of urinary calculi] Onset: 07-20-2014 Resolved: 07-26-2015 08-27-2020 Episodic Cancer of ovary (1 source) Personal history of malignant neoplasm of ovary; Translations: [Personal history of malignant neoplasm of ovary] Onset: 06-30-2024 Episodic Chronic ulcer of skin (20 sources) Pressure ulcer of buttock stage 2; Translations: [Pressure ulcer of unspecified buttock, stage 2] Onset: 01-03-2024 Resolved: 03-11-2024 01-03-2024 Chronic Complication of device; implant or graft (20 sources) Thrombosis due to other internal prosthetic devices, implants and grafts, initial encounter; Translations: [Other complications due to other vascular device, implant, and graft] Onset: 01-03-2024 01-03-2024 Episodic Complications of surgical procedures or medical care (11 sources) Complication of anesthesia; Translations: [Other complications of anesthesia, initial encounter] Onset: 06-11-2024 06-11-2024 Episodic Coronary atherosclerosis and other heart disease (1 source) Presence of aortocoronary bypass graft; Translations: [S/P CABG x 4] Onset: 06-05-2023 Episodic Deficiency and other anemia (1 source) Anemia, unspecified; Translations: [Anemia, unspecified type] Onset: 04-17-2024 Episodic Diabetes mellitus without complication (20 sources) Hyperglycemia; Translations: [Hyperglycemia, unspecified] Onset: 03-11-2024 03-11-2024 Episodic E Codes: Natural/environment (3 sources) Dog scratch; Translations: [Other contact with dog, initial encounter] Onset: 08-05-2024 05-07-2024 Episodic Fluid and electrolyte disorders (20 sources) Hypervolemia; Translations: [Other fluid overload] Onset: 10-26-2020 Episodic Genitourinary symptoms and ill-defined conditions (20 sources) Blood in urine; Translations: [Hematuria, unspecified] Onset: 07-20-2014 Resolved: 12-01-2016 12-01-2016 Episodic Immunizations and screening for infectious disease (2 sources) Requires a tetanus booster; Translations: [Encounter for immunization] Onset: 06-11-2024 05-07-2024 Episodic Neoplasms of unspecified nature or uncertain behavior (2 sources) Neoplasm of uncertain behavior of right breast; Translations: [Neoplasm of uncertain behavior of breast] Onset: 06-30-2024 06-30-2024 Episodic Nonmalignant breast conditions (20 sources) Gynecomastia; Translations: [Lump of subareolar area of right breast] Onset: 08-27-2024 06-30-2024 Episodic Nonspecific chest pain (20 sources) Other chest pain; Translations: [Chest pain] Onset: 07-25-2013 Resolved: 07-23-2017 08-12-2018 Episodic Open wounds of extremities (2 sources) Tear of skin; Translations: [Laceration without foreign body of left forearm, initial encounter] Onset: 09-12-2024 09-12-2024 Episodic Osteoarthritis (20 sources) Primary osteoarthritis, right hand; Translations: [Arthropathy, unspecified, hand] Onset: 08-04-2013 Resolved: 07-26-2015 07-26-2015 Chronic Other aftercare (1 source) Encounter for adjustment and management of vascular access device; Translations: [Encounter for adjustment and management of vascular access device] Onset: 11-07-2024 Episodic Other aftercare (1 source) Encounter for other specified aftercare; Translations: [Visit for wound check] Onset: 08-05-2024 Episodic Other aftercare (1 source) Other long term acute care registered nurse (current) drug therapy; Translations: [Medication management] Onset: 02-09-2022 Episodic Other and unspecified benign neoplasm (20 sources) History of polyp of colon; Translations: [Personal history of colonic polyps] Onset: 12-27-2009 08-27-2020 Episodic Other circulatory disease (16 sources) History of cerebrovascular accident; Translations: [Personal history of transient ischemic attack (TIA), and cerebral infarction without residual deficits] Onset: 09-22-2024 09-22-2024 Episodic Other circulatory disease (1 source) Personal history of transient ischemic attack (TIA), and cerebral infarction without residual deficits; Translations: [History of cerebral infarction] Onset: 09-22-2024 Episodic Other fractures (20 sources) Fracture of tenth thoracic vertebra; Translations: [Wedge compression fracture of T9-T10 vertebra, subsequent encounter for fracture with routine healing] Onset: 07-12-2023 06-18-2023 Episodic Other fractures (1 source) Wedge compression fracture of unspecified lumbar vertebra, initial encounter for closed fracture; Translations: [Compression fx, lumbar spine, closed, initial encounter ([facility])] Onset: 11-07-2024 Episodic Other fractures (1 source) Wedge compression fracture of unspecified lumbar vertebra, subsequent encounter for fracture with routine healing; Translations: [Compression fracture of lumbar vertebra with routine healing, unspecified lumbar vertebral level, subsequent encounter] Onset: 10-07-2024 Episodic Other fractures (1 source) Wedge compression fracture of T9-T10 vertebra, subsequent encounter for fracture with routine healing; Translations: [Closed wedge compression fracture of T10 vertebra with routine healing, subsequent encounter] Onset: 07-12-2023 Episodic Other fractures (1 source) Wedge compression fracture of T9-T10 vertebra, subsequent encounter for fracture with delayed healing; Translations: [Closed wedge compression fracture of T10 vertebra with delayed healing, subsequent encounter] Onset: 07-12-2023 Episodic Other inflammatory condition of skin (20 sources) Prurigo nodularis; Translations: [Prurigo nodularis] Onset: 03-30-2023 03-30-2023 Episodic Other lower respiratory disease (20 sources) Cough; Translations: [Acute cough] Onset: 02-19-2006 Resolved: 07-26-2015 Episodic Other male genital disorders (20 sources) Disorder of prostate; Translations: [Disorder of prostate, unspecified] Onset: 02-09-2022 Episodic Other male genital disorders (1 source) Disorder of prostate, unspecified; Translations: [Prostate disorder] Onset: 02-09-2022 Episodic Other nervous system disorders (20 sources) Carpal tunnel syndrome of right wrist; Translations: [Carpal tunnel syndrome, right upper limb] Onset: 08-04-2013 Resolved: 07-26-2015 07-26-2015 Chronic Other nutritional; endocrine; and metabolic disorders (20 sources) Obese class I; Translations: [Obesity, unspecified] Onset: 03-12-2019 Resolved: 07-19-2021 03-12-2019 Chronic Other nutritional; endocrine; and metabolic disorders (20 sources) Obese class II; Translations: [Obesity, unspecified] Onset: 07-23-2017 Resolved: 07-19-2021 07-19-2021 Chronic Other screening for suspected conditions (not mental disorders or infectious disease) (20 sources) Patient encounter status; Translations: [Encounter for screening for malignant neoplasm of colon] Onset: 11-24-2016 08-27-2020 Episodic Other skin disorders (20 sources) Actinic keratosis; Translations: [Actinic keratosis] Onset: 09-07-2020 09-07-2020 Episodic Other skin disorders (20 sources) Epidermoid cyst; Translations: [Epidermal cyst] Onset: 05-10-2009 Resolved: 07-26-2015 07-26-2015 Episodic Other skin disorders (20 sources) Acne; Translations: [Other acne] Onset: 05-10-2009 Resolved: 07-26-2015 07-26-2015 Episodic Pleurisy; pneumothorax; pulmonary collapse (20 sources) Pleural effusion; Translations: [Pleural effusion, not elsewhere classified] Onset: 03-11-2021 03-11-2021 Episodic Residual codes; unclassified (20 sources) Tube feeding diet; Translations: [Other specified health status] Onset: 08-14-2020 Resolved: 01-13-2021 01-13-2021 Episodic Residual codes; unclassified (20 sources) Active living will ; Translations: [Other specified health status] Onset: 03-11-2024 03-11-2024 Episodic Residual codes; unclassified (20 sources) Family history of breast cancer; Translations: [Family history of malignant neoplasm of breast] Onset: 06-30-2024 06-30-2024 Episodic Residual codes; unclassified (20 sources) Family history of malignant neoplasm of ovary; Translations: [Family history of malignant neoplasm of ovary] Onset: 06-30-2024 06-30-2024 Episodic Residual codes; unclassified (1 source) Presence of other specified devices; Translations: [Presence of other specified devices] Onset: 11-07-2024 Episodic Residual codes; unclassified (1 source) Pain, unspecified; Translations: [Pain, unspecified] Onset: 06-30-2024 Episodic Residual codes; unclassified (1 source) Family history of malignant neoplasm of breast; Translations: [Family history of breast cancer] Onset: 06-30-2024 Episodic Residual codes; unclassified (1 source) Family history of malignant neoplasm of ovary; Translations: [Family history of ovarian cancer] Onset: 06-30-2024 Episodic Residual codes; unclassified (1 source) Other general symptoms and signs; Translations: [Cold intolerance] Onset: 04-17-2024 Episodic Skin and subcutaneous tissue infections (20 sources) Cellulitis and abscess of trunk; Translations: [Cellulitis of trunk, unspecified] Onset: 10-24-2007 Resolved: 07-26-2015 07-26-2015 Episodic Sprains and strains (20 sources) Strain of thoracic region; Translations: [Strain of muscle and tendon of back wall of thorax, sequela] Onset: 07-30-2023 Resolved: 03-11-2024 07-12-2023 Episodic Unclassified (1 source) LOWER BACK REDNESS/PAIN Onset: 11-24-2017 Unclassified (12 sources) abnormal stress test 08-12-2018 Unclassified (2 sources) Patient encounter status 05-27-2024 Results Test Name Value Interpretation Reference Range Facility PT D/C Summary (1)on 025 PT D/C Summary (1) [facility] [address] [place] [address] / REHABILITATION SERVICES DISCHARGE SUMMARY MR#: [id number] Acct: [id number] Name: JACOB LANDA Rep #: [id number] : 1955 69 From: Derrick Neves PT, Cert. T, [facility] Referring Dr.: Dr. Kody Fragoso MD Status: REG RCR Insurance: MEDICARE PART A B [facility] Discharge Summary D/C summary: It has been my pleasure to treat JACOB LANDA referred by Dr. Kody Fragoso MD, with the diagnosis of L3 COMPRESSION FX ,T12 COMPRESSION FX for a total of 7 visit(s). Discharge Date: Please see the following information for a summary of their discharge status. Subjective Subjective: See Family Dr PLan to Dr Fragoso Nov 4th Pain LEFT UE: Pain Intensity (Out of 10): 3 Objective Objective/Function: POSTURE: mod thoracic kyphosis GAIT: reciprocal pattern 2 point gait with slow megan hips/knees flexed mod thoracic kyphosis ( no cane in house) PALPATION: unremarkable SYMMETRICAL: slight scoliosis NEURO: denies paresthesia/tingling MMT: quads/hams 4/5 hip flexion 4-/5 ,ankle 4/5 FLEXABILITY: hamstrings mod tight Goals Goal 1:: Patient to be I with HEP for osteoporosis program Goal Progress: Progressing Goal 2:: Patient to improve lumbar ROM for function of recovery for ADL's Goal Progress: Progressing Goal 3:: Patient to ambulate with/without cane community distance with less pain 70% Goal Progress: Progressing Goal 4:: Patient be able to perform ADL's and housework tasks with min limitations with less pain by 50% Goal Progress: Progressing Goal 5:: Patient to improve back oswestry score by 5 points to improve QOL and function Goal Progress: Progressing Plan Plan: RTD D/C Information d/c sentence: If there are questions or concerns regarding this patient's physical therapy, please feel free to call me at [phone]. Thank you for the referral of this patient. Sincerely, Derrick Neves, PT, Cert MDT, OCS Balance/Gait/Functional tests Balance/Special Test Scores Oswestry Low Back Score: 30 02/05/25 0952 CC: Dr. Yaw Singh MD; Dr. Kody Fragoso MD JLA Signed Normal [facility] MR/BMS.BVSon 02-04-2025 MR/BMS.BVS [facility] [address] [place] [address]. [address] [place] [address] OFFICE VISIT Date of Service: 02/04/25 MR#: [id number] Acct: [id number] Name: JACOB LANDA Rep #: [id number] : 1955 Provider: SHEILA Becker Age/Sex: 69/M [place] [facility] [place] Status: Signed Intake Vital Signs 11/14/24 09:30 01/30/25 12:50 02/04/25 13:18 Height 5 ft 9 in 5 ft 9 in 5 ft 9 in Weight: 157 lb BMI 23.1 BP 124/73 H Blood Pressure Location Lt brachial Position Sitting Respiration 18 Pulse 92 Pulse Source Monitor Temp 97.8 F Temp Source Oral Pulse Oximetry (%) 98 Oxygen Delivery Method room air Intake Visit Reasons: swelling in arm [employer] Dispatcher Required: No Accompanied by: Self Is patient in pain?: No Allergies No Known Allergies Allergy (Verified 02/04/25 13:20) Medications ???Medication ???Instructions ???Recorded ???Confirmed ???Type atorvastatin 80 mg tablet 80 mg PO QHS CHOLESTEROL #90 tabs 05/15/22 02/04/25 Rx ezetimibe 10 mg tablet 10 mg PO DAILY CHOLESTEROL #90 tab s 05/15/22 02/04/25 Rx metoprolol tartrate 25 mg tablet 25 mg PO BID #0 tabs 10/25/2301/08 Rx pantoprazole 40 mg tablet,delayed 40 mg PO BID #0 tabs 10/25/23 Rx release ferrous sulfate 325 mg (65 mg 325 mg PO DAILY #90 tabs 11/20/23 02/04/25 Rx iron) tablet polyethylene glycol 3350 17 17 g PO DAILY PRN constipation 02/04/25 History gram/dose oral powder (Miralax) ondansetron 4 mg disintegrating 4 mg PO Q8H PRN PRN nausea and 02/04/25 History tablet vomiting nitroglycerin 0.4 mg sublingual 0.4 mg sublingual PRN PRN angina 1 04/15/23 02/04/25 History tablet aspirin 81 mg chewable tablet 81 mg PO BID #0 tabs 02/17/2401/08 Rx acetaminophen 500 mg tablet 1,000 mg PO Q8 PRN pain 04/29/24 1 History amoxicillin 500 mg tablet 2,000 mg (4 x 500 mg) PO ONCE #4 0 04/29/24 02/04/25 Rx tabs oxycodone 5 mg tablet 5 mg PO Q8H PRN pain 2 days #6 tab s 06/30/24 02/04/25 Rx oxycodone-acetaminophen 5 mg-325 1 tab PO Q6H PRN PRN pain 5 days 0 09/17/24 02/04/25 Rx mg tablet #20 TABLETS Have you fallen in the past year?: No Nurse's Note: Left forearm swelling and redness for about the last month. Left hand swelling and cool. Reports AV fistula infiltrated 2 months ago during dialysis. Denies pain, numbness or tingling. [facility] Medical History Thrombocytopenia Wears glasses Cancer Cancer Pressure ulcer History of renal dialysis History of renal disease Injury of back History of GI bleed Gastric reflux Shortness of breath on exertion History of stress test History of echocardiogram Cardiology follow-up encounter Thrombus of venous dialysis catheter ESRD (end stage renal disease) on dialysis Acute respiratory insufficiency Medical non-compliance Acute exacerbation of chronic heart failure Chronic kidney disease (CKD) Pleural effusion Dyspnea Acute kidney injury Adenocarcinoma of esophagus LEELA (acute kidney injury) Non-smoker Esophageal carcinoma Atherosclerosis of coronary artery of [place] heart without angina pectoris 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 Essential (primary) hypertension Non-rheumatic aortic stenosis Syncope and collapse Hyperlipidemia Atherosclerotic heart disease of [place] coronary artery with other forms of angina pectoris Encounter for long-term current use of high risk medication abnormal stress test Angina pectoris Exertional chest pain Surgical History History of hip replacement ( 02/2024) History of cardiac catheterization History of esophagogastroduodenoscopy (EGD) Hx of surgical procedure History of aortic valve replacement (03/03/19) History of coronary artery stent placement (12/31/18) H/O coronary artery bypass surgery (09/18/02) History of tonsillectomy History of hernia repair Family History Father Heart disease Myocardial infarction Hypertension Brother Hypertension Sister Heart disease Myocardial infarction Social History Smoking Status: Never smoker alcohol intake: never substance use type: does not use caffeine: No what type of physical activity do you participate in: walking frequency: daily HPI HPI HPI: JACOB LANDA, is a 69 M who presents to the office today for evaluation of LUE edema associated with his L upper arm AVF. He had L brachiocephalic AVF creation 06/30/24. The fistula matured well in expected li (more content not included)... Normal [facility] 12 Lead EKGon 01-30-2025 12 Lead EKG [facility] Cardi[facility] [address] [place] [address] 12 Lead EKG 01/30/25 1345 MR#: [id number] Acct: [id number] Name: JACOB LANDA Rep #: [id number] : 1955 69 From: Trinh Briones MD Attending Dr: Status: DEP ER Ordering Dr: Fidelina Holman MD Date: 01/30/25 Location: ED Sex: M C Admitted: Test Reason : ARRYTH Blood Pressure : */* mmHG Vent. Rate : 75 BPM Atrial Rate : 75 BPM P-R Int : 148 ms QRS Dur : 96 ms QT Int : 416 ms P-R-T Axes : 13 7 6 degrees QTcB Int : 464 ms Normal sinus rhythm Cannot rule out Anterior infarct , age undetermined Abnormal ECG Confirmed by TRINH BRIONES ([id number]), website/blog editor CYNTHIA JOHN ([id number]) on 02/02/2025 6:40:55 AM Referred By: ER Confirmed By: TRINH BRIONES 02/02/25 0640 Date Trinh Briones MD CC: Dr. Fidelina Holman MD; Dr. Yaw Singh MD Signed Normal [facility] Basic Metabolic Profile (BMP )on 01-30-2025 BUN/CRE 8.5 RATIO Low 01-26 [facility] Comment on above: Performed By: #### L 100.0100, L500.2500 ####[facility] [address] [place], [address] Calcium [Mass/Vol] 7.9 mg/dL Normal 7.6-11.0 [facility] Comment on above: Performed By: #### L 100.0100, L500.2500 ####[facility] [address] [place], [address] Chloride [Moles/Vol] 98 mmol/L Normal 98-108 [facility] Comment on above: Performed By: #### L 100.0100, L500.2500 ####[facility] [address] [place], [address] CO2 [Moles/Vol] 32.7 mmol/L High 21.0-32.0 [facility] Comment on above: Performed By: #### L 100.0100, L500.2500 ####[facility] [address] [place], [address] Creatinine [Mass/Vol] 1.65 mg/dL High 0.70-1.20 [facility] Comment on above: Performed By: #### L 100.0100, L500.2500 ####[facility] [address] [place], [address] ECRCL 41.66 ml/min Low 50-250 [facility] Comment on above: Performed By: #### L 100.0100, L500.2500 ####[facility] [address] [place], [address] GAP 9 Normal 5-15 [facility] Comment on above: Performed By: #### L 100.0100, L500.2500 ####[facility] [address] [place], [address] GFR/1.73 sq M.predicted among non-blacks MDRD (S/P/Bld) [Vol rate/Area] 44 mL/min/{1.73_m2} Low >60 [facility] Comment on above: Result Comment: mL/m in/1.73m2 CKD-EPI Creatinine Equation (2020) Performed By: #### L 100.0100, L500.2500 ####[facility] [address] [place], [address] Glucose [Mass/Vol] 82 mg/dL Normal 70-99 [facility] Comment on above: Performed By: #### L 100.0100, L500.2500 ####[facility] [address] [place], [address] Potassium [Moles/Vol] 3.4 mmol/L Normal 3.3-5.1 [facility] Comment on above: Performed By: #### L 100.0100, L500.2500 ####[facility] [address] [place], [address] Sodium [Moles/Vol] 140 mmol/L Normal 133-145 [facility] Comment on above: Performed By: #### L 100.0100, L500.2500 ####[facility] [address] [place], [address] Urea nitrogen [Mass/Vol] 14 mg/dL Normal 4-19 [facility] Comment on above: Performed By: #### L 100.0100, L500.2500 ####[facility] [address] [place], [address] CBC W/Diff, Automatedon 10-2 Absolute Lymph 0.72 X10 3/uL Low 0.83-4.51 [facility] Comment on above: Performed By: #### L 100.0100, L500.2500 ####[facility] [address] [place], [address] Absolute Neut 2.3 X10 3/uL Normal 2.0-7.7 [facility] Comment on above: Performed By: #### L 100.0100, L500.2500 ####[facility] [address] [place], [address] Basophils/100 WBC (Bld) 1.1 % High 0-1 [facility] Comment on above: Performed By: #### L 100.0100, L500.2500 ####[facility] [address] [place], [address] Eosinophils/100 WBC (Bld) 3.2 % Normal 0-5 [facility] Comment on above: Performed By: #### L 100.0100, L500.2500 ####[facility] [address] [place], [address] Erythrocyte distribution width (RBC) [Ratio] 13.5 % Normal 11.6-14.6 [facility] Comment on above: Performed By: #### L 100.0100, L500.2500 ####[facility] [address] [place], [address] Hematocrit (Bld) [Volume fraction] 33.9 % Low 40-54 [facility] Comment on above: Performed By: #### L 100.0100, L500.2500 ####[facility] [address] [place], [address] Hemoglobin (Bld) [Mass/Vol] 11.0 g/dL Low 13.0-16.5 [facility] Comment on above: Performed By: #### L 100.0100, L500.2500 ####[facility] [address] [place], [address] IG% 0.500 Normal 0.0-0.9 [facility] Comment on above: Result Comment: IG% - Immature Granulocytes (promyelocytes, myelocytes and metamyelocytes) > 1% indicates that a LEFT SHIFT is Present. Performed By: #### L 100.0100, L500.2500 ####[facility] [address] [place], [address] Lymphocytes/100 WBC (Bld) 19.3 % Normal 19-41 [facility] Comment on above: Performed By: #### L 100.0100, L500.2500 ####[facility] [address] [place], [address] MCH (RBC) [Entitic mass] 31.0 pg Normal 27.0-32.0 [facility] Comment on above: Performed By: #### L 100.0100, L500.2500 ####[facility] [address] [place], [address] MCHC (RBC) [Mass/Vol] 32.4 g/dL Normal 32-36 [facility] Comment on above: Performed By: #### L 100.0100, L500.2500 ####[facility] [address] [place], [address] MCV (RBC) [Entitic vol] 95.5 fL High 80-94 [facility] Comment on above: Performed By: #### L 100.0100, L500.2500 ####[facility] [address] [place], [address] Monocytes/100 WBC (Bld) 13.1 % High 0-10 [facility] Comment on above: Performed By: #### L 100.0100, L500.2500 ####[facility] [address] [place], [address] Neutrophils/100 WBC (Bld) 62.8 % Normal 47-70 [facility] Comment on above: Performed By: #### L 100.0100, L500.2500 ####[facility] [address] [place], [address] Nucleated RBC (Bld) [#/Vol] 0 10*3/uL Normal 0-5 [facility] Comment on above: Performed By: #### L 100.0100, L500.2500 ####[facility] [address] [place], [address] Platelet mean volume (Bld) [Entitic vol] 9.1 fL Normal 6.2-12.0 [facility] Comment on above: Performed By: #### L 100.0100, L500.2500 ####[facility] [address] [place], [address] Platelets (Bld) [#/Vol] 156 10*3/uL Normal 150-450 [facility] Comment on above: Performed By: #### L 100.0100, L500.2500 ####[facility] [address] [place], [address] RBC (Bld) [#/Vol] 3.55 10*6/uL Low 4.6-6.2 [facility] Comment on above: Performed By: #### L 100.0100, L500.2500 ####[facility] [address] [place], [address] RDW SD 47.9 fl High 35.1-43.9 [facility] Comment on above: Performed By: #### L 100.0100, L500.2500 ####[facility] [address] [place], [address] WBC (Bld) [#/Vol] 3.7 10*3/uL Low 4.4-11.0 [facility] Comment on above: Performed By: #### L 100.0100, L500.2500 ####[facility] [address] [place], [address] Emergency Department Summary on 01-30-2025 Emergency Department Summary [facility] Medical Records Department [address] [facility] [place] [address] Emergency Department Summary 01/30/25 MR#: [id number] Acct: [id number] Name: JACOB LANDA Rep #: [id number] : 1955 69 From: Fidelina Holman MD PCP: Dr. Yaw Singh MD Status:DEP ER Location: ED HPI History of Present Illness Chief Complaint: Hypotension Narrative Narrative: Patient is a 69-year-old male presenting emergency department for hypotension reportedly at his dialysis appointment. Patient has a past medical history as below including CKD on dialysis Sunday however he missed his dialysis yesterday because he was having diarrhea. States he had about 4-5 episodes of nonbloody diarrhea. States he felt fine otherwise. States he felt normal today when he went to his make up dialysis appointment and they noted that he was hypotensive and gave him 2 L of fluids. They then sent him here for evaluation. Patient denies fever, chills, chest pain, shortness of breath, abdominal pain, nausea, vomiting, diarrhea today. Denies any dysuria or hematuria. [facility] Medical History Thrombocytopenia Wears glasses Cancer Cancer Pressure ulcer History of renal dialysis History of renal disease Injury of back History of GI bleed Gastric reflux Shortness of breath on exertion History of stress test History of echocardiogram Cardiology follow-up encounter Thrombus of venous dialysis catheter ESRD (end stage renal disease) on dialysis Acute respiratory insufficiency Medical non-compliance Acute exacerbation of chronic heart failure Chronic kidney disease (CKD) Pleural effusion Dyspnea Acute kidney injury Adenocarcinoma of esophagus LEELA (acute kidney injury) Non-smoker Esophageal carcinoma Atherosclerosis of coronary artery of [place] heart without angina pectoris 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 Essential (primary) hypertension Non-rheumatic aortic stenosis Syncope and collapse Hyperlipidemia Atherosclerotic heart disease of [place] coronary artery with other forms of angina pectoris Encounter for long-term current use of high risk medication abnormal stress test Angina pectoris Exertional chest pain Home Medications ???Medication ???Instructions ???Recorded ???Last Taken ???Type atorvastatin 80 mg tablet 80 mg PO QHS CHOLESTEROL #90 tabs 05/15/22 12/24/23 Rx ezetimibe 10 mg tablet 10 mg PO DAILY CHOLESTEROL #90 tab s 05/15/22 12/24/23 Rx metoprolol tartrate 25 mg tablet 25 mg PO BID #0 tabs 10/25/2306/08 05:30 Rx pantoprazole 40 mg tablet,delayed 40 mg PO BID #0 tabs 10/25/23 05:30 Rx release ferrous sulfate 325 mg (65 mg 325 mg PO DAILY #90 tabs 11/20/23 06/29/24 Rx iron) tablet polyethylene glycol 3350 17 17 g PO DAILY PRN constipation Unknown History gram/dose oral powder (Miralax) ondansetron 4 mg disintegrating 4 mg PO Q8H PRN PRN nausea and 12/25/23 08:00 History tablet vomiting nitroglycerin 0.4 mg sublingual 0.4 mg sublingual PRN PRN angina 1 04/15/23 Unknown History tablet aspirin 81 mg chewable tablet 81 mg PO BID #0 tabs 02/17/2406/08 Rx acetaminophen 500 mg tablet 1,000 mg PO Q8 PRN pain 04/29/24 U nknown History amoxicillin 500 mg tablet 2,000 mg (4 x 500 mg) PO ONCE #4 0 04/29/24 Unknown Rx tabs oxycodone 5 mg tablet 5 mg PO Q8H PRN pain 2 days #6 tab s 06/30/24 Unknown Rx oxycodone-acetaminophen 5 mg-325 1 tab PO Q6H PRN PRN pain 5 days 0 09/17/24 Unknown Rx mg tablet #20 TABLETS Allergy/AdvReac Type Severity Reaction Status Date / Time No Known Allergies Allergy Verified 01/30/25 12:52 Family History Father Heart disease Myocardial infarction Hypertension Brother Hypertension Sister Heart disease Myocardial infarction Surgical History History of hip replacement ( 02/2024) History of cardiac catheterization History of esophagogastroduodenoscopy (EGD) Hx of surgical procedure History of aortic valve replacement (03/03/19) History of coronary artery stent placement (12/31/18) H/O coronary artery bypass surgery (09/18/02) History of tonsillectomy History of hernia repair Social History Smoking Status: Never smoker alcohol intake: never substance use type: does not use caffeine: No what type of physical activity do you participate in: walking frequency: daily ROS ROS ED ROS Narrative see HPI EXAM Physical Exam Narrative Exam Narrative: Vital signs: Review (more content not included)... Normal [facility] AV Fistula/Dialysis Graft Sc anon 01-22-2025 AV Fistula/Dialysis Graft Scan [facility] [address] [place] [address] AV Fistula/Dialysis Graft Scan 01/22/25 1309 MR#: [id number] Acct: [id number] Name: JACOB LANDA Rep #: [id number] : 1955 69 From: Nikita Jackson MD Attending Dr: SHEILA Becker Status: REG CLI Ordering Dr: Maggie Mosquera Date: 01/22/25 Location: CVS Sex: M C Admitted: Reason For Study Reason For Study: ESRD LEFT Brachiocephalic AVF Inflow, 277.0/142.5 cm/sec. Inflow, 2537 ml/min. Anastomosis, 330.1/192.3 cm/sec. Anastomosis, 1403 ml/min. Prox Graft, 175.3/69.0 cm/sec. Prox Graft, 3173 ml/min. Mid Graft, 121.1/55.3 cm/sec. Mid Graft, 1960 ml/min. Dist Graft, 90.0/55.6 cm/sec. Dist Graft, 1856 ml/min. Outflow, 240.5/142.4 cm/sec. Outflow, 1956 ml/min. VL/AV Fistula/Dialysis Graft Scan Interpretation Summary Left upper extremity fistula patent with satisfactory flow volume, depth and caliber throughout with no stenosis visualized. Ordering Physician: Maggie Mosquera Referring Physician: Yaw Singh MD Performed By: Lynne York, REJI 01/22/25 1550 Date Nikita Jackson MD CC: SHEILA Becker; Dr. Yaw Singh MD Date Dictated: 01/22/25 1309 Date Transcribed: 01/22/25 155 Gunner'S Mate: Signed Normal [facility] Inital Evaluation (1) - PTon 12-24-2024 Inital Evaluation (1) - PT [facility] Physical Therapy [address] [place] [address] / REHABILITATION SERVICES INITIAL EVALUATION MR#: [id number] Acct: [id number] Name: JACOB LANDA Rep #: [id number] : 1955 69 From: Derrick Neves PT, Cert. T, OCS Referring Dr.: Dr. Kody Fragoso MD Status: REG RCR Insurance: MEDICARE PART A B [facility] Patient's Visit Information Visit Information Visit Information: JACOB LANDA is a 69 year old M referred to Physical Therapy by Dr. Kody Fragoso MD with a diagnosis of L3 COMPRESSION FX ,T12 COMPRESSION FX. Date of Evaluation: 12/24/24 Physical Therapist: Derrick Neves, PT, Cert MDT, OCS Visit Plan Frequency: 2x /Week Duration: 4 Weeks Plan: T12 and L3 COMPRESSION FX HAS OSTEOPOROSIS PT INTERVENTIONS DLS ,POSTURAL EX'S ,BLE STRENGTHENING ,FUNCTIONAL STRENGTHENING AND PATIENT EDUCATION Subjective Subjective: This 69 y/o male presents to physical therapy with T12 compression fracture ,L3 compression fracture. Patient states that he was in the shower, and was picking up a bottle of shampoo. When he bent forward to pick the bottle of shampoo up he felt a sharp pulling pain in the lower back. He denies any pain into the legs. Says that he has a lot of midline lower back pain and pain that goes towards the right side of the lower back. Patient states that he went to the [facility] the same day. Patient had MRI Multiple chronic appearing compression deformities are present such as at L5, L3, L2 and L1. However, there is a more recent compression deformity of T12 with concavity of the superior endplate and edema on inversion recovery images. Seen Dennis Ibarra recommended pain management ,seen Fouzia recommended PT . Bone density osteoporosis. He currently uses a cane to help him balance, and walk. Patient states that he tries not to use his cane all the time. He has been using it for the last 2-3 weeks. He is not currently on any chemo or radiation treatment for the esophageal cancer. Says that he does have chronic kidney disease and is on dialysis 3 days a week. He is on the kidney transplant list. Reports that he did have a fall in 2023 that broke his left hip and had a hemiarthroplasty done at that time. Says he has not had any current falls since then. Patient also reports a recent 50 pound weight loss over the last 6 months. Says that he has recently seen the oncologist . Medication Hydrocodone. Patient has no pain . Patient has weakness. Patient denies paresthesia/tingling -. Aggravating standing /walking ,.unable to lift/bending. Alleviating rest. Coughing/sneezing+ .Bowel/bladder-. Patient started using cane after injury. Patient condition affects QOL and function SOCAIl: Objective Objective: POSTURE: mod thoracic kyphosis GAIT: reciprocal pattern 2 point gait with slow megan hips/knees flexed mod thoracic kyphosis PALPATION: unremarkable SYMMETRICAL: slight scoliosis NEURO: denies paresthesia/tingling MMT: quads/hams 4/5 hip flexion 4-/5 ,ankle 4/5 FLEXABILITY: hamstrings mod tight Special Tests L/S Slump test left side: Negative L/S Slump test right side: Negative L/S Left Straight Leg Raise: Negative L/S Right Straight Leg Raise: Negative Balance/Special Test Scores Oswestry Low Back Score: 30 Goals Goal 1:: Patient to be I with HEP for osteoporosis program Goal Time Frame: 4-6 Weeks Goal 2:: Patient to improve lumbar ROM for function of recovery for ADL's Goal Time Frame: 4-6 Weeks Goal 3:: Patient to ambulate with/without cane community distance with less pain 70% Goal Time Frame: 4-6 Weeks Goal 4:: Patient be able to perform ADL's and housework tasks with min limitations with less pain by 50% Goal Time Frame: 4-6 Weeks Goal 5:: Patient to improve back oswestry score by 5 points to improve QOL and function Rehabilitation Potential Physical Therapy Diagnosis: This patent has compression with pain ,weakness ,decrease gait, poor lumbar ROM thus benefit from skilled PT Rehabilitation Potential: Fair Anticipated Interventions Patient/Client Instruction: Educate patient on: Condition and Plan of Care For the Purpose of:: To decrease pain, To improve muscle performance and motor function, To improve ability to perform ADL's, To increase tolerance to activity/condition/positio n, To improve performance and independence with ADL's, To improve ability of physical actions for home/community/work/leisur e, To improve gait and locomotor functions, To improve endurance, To improve balance and To improve tolerance to ADL's Therapeutic Exercise to Include: Strength training, Endurance training, Balance training, Postural training, Flexibilty training and Dynamic Lumbar Stabilization Comment: QUADS/HAMS/HIP For the Purpose of:: To decrease pain, To improve muscle performance and motor (more content not included)... Normal [facility] Magnetic resonance imaging r eportOrdered By: Odilon Maldonado on 12-05-2024 Study report [facility] Imaging Services [address] [place], [place] [id number] Spine Lumbar (Routine) MR#: [id number] Acct: [id number] Name: JACOB LANDA Rep #: [id number] : 1955 M 69 From: Magalys Maldonado MD PCP: Dr. Yaw Singh MD Status: REG CLI Study:Spine Lumbar (Routine) Date of Exam: 12/03/24 Exam# [id number] Ordering Dr: Quang Ibarra PROCEDURE: SPINE LUMBAR (ROUTINE) 12/03/2024 REASON FOR EXAM: PAIN, COMPRESSION FX, DDD TECHNIQUE: Procedure Code: MRISPL Modality: MR Procedure: SPINE LUMBAR (ROUTINE) FINDINGS: Multiple chronic appearing compression deformities are present such as at L5, L3, L2 and L1. However, there is a more recent compression deformity of T12 with concavity of the superior endplate and edema on inversion recovery images. Quite minimal central edema is seen at L3 which could indicate ongoing microfracture. Normal conus. No retroperitoneal mass. T11-12 is unremarkable. T12-L1 is negative for spinal stenosis. L1-L2 demonstrates no significant spinal canal narrowing. At L2-3 no central or foraminal compromise. At L3-4 no central or foraminal compromise At L4-5 mild canal narrowing from concentric annular bulge with mild inferior foraminal narrowing on the left L5-S1 unremarkable. MRI/Spine Lumbar (Routine) IMPRESSION: Chronic compression deformities. Judging by inversion recovery signal, the fracture at T12 appears more recent. Reading Location: [facility] CC: SHEILA Coreas; Dr. Yaw Singh MD ~ Gunner'S Mate: Signed [facility] Spine Lumbar (Routine)on Spine Lumbar (Routine) [facility] Imaging Services [address] [place] [address] [phone] Spine Lumbar (Routine) MR#: [id number] Acct: [id number] Name: JACOB LANDA Rep #: [id number] : 1955 M 69 From: Odilon Maldonado MD PCP: Dr. Yaw Singh MD Status: REG CLI Study: Spine Lumbar (Routine) Date of Exam: 12/03/24 Exam# [id number] Ordering Dr: Connie Ibarra PROCEDURE: SPINE LUMBAR (ROUTINE) 12/03/2024 REASON FOR EXAM: PAIN, COMPRESSION FX, DDD TECHNIQUE: Procedure Code: MRISPL Modality: MR Procedure: SPINE LUMBAR (ROUTINE) FINDINGS: Multiple chronic appearing compression deformities are present such as at L5, L3, L2 and L1. However, there is a more recent compression deformity of T12 with concavity of the superior endplate and edema on inversion recovery images. Quite minimal central edema is seen at L3 which could indicate ongoing microfracture. Normal conus. No retroperitoneal mass. T11-12 is unremarkable. T12-L1 is negative for spinal stenosis. L1-L2 demonstrates no significant spinal canal narrowing. At L2-3 no central or foraminal compromise. At L3-4 no central or foraminal compromise At L4-5 mild canal narrowing from concentric annular bulge with mild inferior foraminal narrowing on the left L5-S1 unremarkable. MRI/Spine Lumbar (Routine) IMPRESSION: Chronic compression deformities. Judging by inversion recovery signal, the fracture at T12 appears more recent. Reading Location: [facility] CC: SHEILA Coreas; Dr. Yaw Singh MD Gunner'S Mate: Signed Normal [facility] Bone density reportOrdered B y: Nino Wood on 11-26-2024 Study report Skeletal system DXA [facility] Imaging Services [address] [place] [address] [phone] Dexa Bone Density Study MR#: [id number] Acct: [id number] Name: JACOB LANDA Rep #: [id number] : 1955 M 69 From: Rik Wood MD PCP: Dr. Yaw Singh MD Status: REG CLI Study:Dexa Bone Density Study Date of Exam: 11/26/24 Exam# [id number] Ordering Dr: Quang Ibarra PROCEDURE: DEXA BONE DENSITY STUDY 11/26/2024 REASON FOR EXAM: OSTEOPOROSIS M, age 69 y/o . Postmenopausal. TECHNIQUE: DEXA BONE DENSITY STUDY COMPARISON: None FINDINGS: BMD and T-SCORES Lumbar spine: 0.811 g/cm2, T-score -2.5 Levels: L1 through L4 Right femoral neck: 0.543 g/cm2, T-score -2.8 Femoral neck comparison data not recommended for monitoring change. Right total hip: 0.606 g/cm2, T-score -2.8 The World Health Organization has defined the following categories based on bonedensity: Normal bone density: T-score equal to or greater than -1.0 Osteopenia: T-score between -1.0 and -2.5 Osteoporosis: T-score equal to or less than -2.5 FRAX (or Comparable) Fracture Risk Assessment: 10 Year Probability of Fracture: Major Osteoporotic Fracture: 19% Hip Fracture: 7.2% (Note: FRAX is not to be reported in setting of normal range bone density, osteoporosis on DEXA, known history of osteoporosis, prior osteoporotic hip or vertebral fracture, or for any patient undergoing pharmacological treatment for bone loss.) The National Osteoporosis Foundation (NOF) recommends pharmacological treatment for patients with a FRAX 10-year risk of 3% or higher for a hip fracture, or 20% or higher for a major osteoporotic fracture, to prevent osteoporosis and reduce fracture risk. The patient does meet the pharmacological treatment recommendations for prevention of osteoporosis. BD/Dexa Bone Density Study IMPRESSION: OSTEOPOROSIS. Recommend follow-up as clinically warranted. Reading Location: [id number] CC: SHEILA Coreas; Dr. Yaw Singh MD ~ Gunner'S Mate: Signed [facility] Dexa Bone Density Studyon Dexa Bone Density Study [facility] Imaging Services [address] [place] [address] [id number] Dexa Bone Density Study MR#: [id number] Acct: [id number] Name: JACOB LANDA Rep #: [id number] : 1955 M 69 From: Nino porter MD PCP: Dr. Yaw Singh MD Status: REG CLI Study: Dexa Bone Density Study Date of Exam: 11/26/24 Exam# [id number] Ordering Dr: Connie Ibarra PROCEDURE: DEXA BONE DENSITY STUDY 11/26/2024 REASON FOR EXAM: OSTEOPOROSIS M, age 69 y/o . Postmenopausal. TECHNIQUE: DEXA BONE DENSITY STUDY COMPARISON: None FINDINGS: BMD and T-SCORES Lumbar spine: 0.811 g/cm2, T-score -2.5 Levels: L1 through L4 Right femoral neck: 0.543 g/cm2, T-score -2.8 Femoral neck comparison data not recommended for monitoring change. Right total hip: 0.606 g/cm2, T-score -2.8 The World Health Organization has defined the following categories based on bone density: Normal bone density: T-score equal to or greater than -1.0 Osteopenia: T-score between -1.0 and -2.5 Osteoporosis: T-score equal to or less than -2.5 FRAX (or Comparable) Fracture Risk Assessment: 10 Year Probability of Fracture: Major Osteoporotic Fracture: 19% Hip Fracture: 7.2% (Note: FRAX is not to be reported in setting of normal range bone density, osteoporosis on DEXA, known history of osteoporosis, prior osteoporotic hip or vertebral fracture, or for any patient undergoing pharmacological treatment for bone loss.) The National Osteoporosis Foundation (NOF) recommends pharmacological treatment for patients with a FRAX 10-year risk of 3% or higher for a hip fracture, or 20% or higher for a major osteoporotic fracture, to prevent osteoporosis and reduce fracture risk. The patient does meet the pharmacological treatment recommendations for prevention of osteoporosis. BD/Dexa Bone Density Study IMPRESSION: OSTEOPOROSIS. Recommend follow-up as clinically warranted. Reading Location: [facility] CC: SHEILA Coreas; Dr. Yaw Singh MD Gunner'S Mate: Signed Normal [facility] Lumbar Spine 2 or 3 Viewson 11-14-2024 Lumbar Spine 2 or 3 Views [facility] Imaging Services [address] [place] [address] [phone] Lumbar Spine 2 or 3 Views MR#: [id number] Acct: [id number] Name: JACOB LANDA Rep #: [id number] : 1955 M 69 From: Nino porter MD PCP: Dr. Yaw Singh MD Status: DEP AMB Study: Lumbar Spine 2 or 3 Views Date of Exam: Exam# [id number] Ordering Dr: Connie Ibarra PROCEDURE: LUMBAR SPINE 2 OR 3 VIEWS 11/14/2024 REASON FOR EXAM: BACK PAIN, COMPRESSION FX TECHNIQUE: LUMBAR SPINE 2 OR 3 VIEWS COMPARISON: Prior study dated October 07, 2024. FINDINGS: Vertebrae: Since prior study, there has been progressive loss of height of the superior endplate of the L2 vertebrae. Progressive loss of height of the superior endplate of the L3 vertebrae. There has also been progressive loss of height of the superior endplate of the L1 vertebrae. Discs: Mild degree of disc space narrowing at the L4-L5 and L5-S1 levels. Alignment: Normal lumbar lordosis. Other: Status post left hip replacement. RAD/Lumbar Spine 2 or 3 Views IMPRESSION: Since prior study, there has been progressive loss of height of the L1, L2 and L3 vertebrae. Reading Location: [id number] CC: SHEILA Coreas; Dr. Yaw Singh MD Gunner'S Mate: Signed Normal [facility] Orthopedic Visit Reporton Orthopedic Visit Report [facility] [address] [place] [address] OFFICE VISIT Date of Service: 11/14/24 MR#: [id number] Acct: [id number] Name: JACOB LANDA Rep #: [id number] : 1955 Provider: SHEILA Coreas Age/Sex: 69/M [place] [facility] [place]: Signed Intake Vital Signs 10/15/24 09:21 11/14/24 09:30 Height 5 ft 9 in 5 ft 9 in Weight: 161 lb 155 lb BMI 22.8 Intake Visit Reasons: lumber spine Chief Complaint: Lumbar spine pain Accompanied by: Is patient in pain?: Yes Pain scale (1-10): 5 Allergies No Known Allergies Allergy (Verified 11/14/24 09:36) Medications ???Medication ???Instructions ???Recorded ???Confirmed ???Type atorvastatin 80 mg tablet 80 mg PO QHS CHOLESTEROL #90 tabs 05/15/22 11/14/24 Rx ezetimibe 10 mg tablet 10 mg PO DAILY CHOLESTEROL #90 tab s 05/15/22 11/14/24 Rx metoprolol tartrate 25 mg tablet 25 mg PO BID #0 tabs 10/25/2312/01 Rx pantoprazole 40 mg tablet,delayed 40 mg PO BID #0 tabs 10/25/2312/01 Rx release ferrous sulfate 325 mg (65 mg 325 mg PO DAILY #90 tabs 11/20/23 11/14/24 Rx iron) tablet polyethylene glycol 3350 17 17 g PO DAILY PRN constipation 11/14/24 History gram/dose oral powder (Miralax) ondansetron 4 mg disintegrating 4 mg PO Q8H PRN PRN nausea and 11/14/24 History tablet vomiting nitroglycerin 0.4 mg sublingual 0.4 mg sublingual PRN PRN angina 1 04/15/23 11/14/24 History tablet aspirin 81 mg chewable tablet 81 mg PO BID #0 tabs 02/17/2412/01 Rx acetaminophen 500 mg tablet 1,000 mg PO Q8 PRN pain 04/29/24 0 11/14/24 History amoxicillin 500 mg tablet 2,000 mg (4 x 500 mg) PO ONCE #4 0 04/29/24 11/14/24 Rx tabs oxycodone 5 mg tablet 5 mg PO Q8H PRN pain 2 days #6 tab s 06/30/24 11/14/24 Rx oxycodone-acetaminophen 5 mg-325 1 tab PO Q6H PRN PRN pain 5 days 0 09/17/24 11/14/24 Rx mg tablet #20 TABLETS Have you fallen in the past year?: Yes PFSH Medical History Thrombocytopenia Wears glasses Cancer Cancer Pressure ulcer History of renal dialysis History of renal disease Injury of back History of GI bleed Gastric reflux Shortness of breath on exertion History of stress test History of echocardiogram Cardiology follow-up encounter Thrombus of venous dialysis catheter ESRD (end stage renal disease) on dialysis Acute respiratory insufficiency Medical non-compliance Acute exacerbation of chronic heart failure Chronic kidney disease (CKD) Pleural effusion Dyspnea Acute kidney injury Adenocarcinoma of esophagus LEELA (acute kidney injury) Non-smoker Esophageal carcinoma Atherosclerosis of coronary artery of [place] heart without angina pectoris 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 Essential (primary) hypertension Non-rheumatic aortic stenosis Syncope and collapse Hyperlipidemia Atherosclerotic heart disease of [place] coronary artery with other forms of angina pectoris Encounter for long-term current use of high risk medication abnormal stress test Angina pectoris Exertional chest pain Surgical History History of hip replacement ( 02/2024) History of cardiac catheterization History of esophagogastroduodenoscopy (EGD) Hx of surgical procedure History of aortic valve replacement (03/03/19) History of coronary artery stent placement (12/31/18) H/O coronary artery bypass surgery (09/18/02) History of tonsillectomy History of hernia repair Family History Father Heart disease Myocardial infarction Hypertension Brother Hypertension Sister Heart disease Myocardial infarction Social History Smoking Status: Never smoker alcohol intake: never substance use type: does not use caffeine: No what type of physical activity do you participate in: walking frequency: daily HPI lumber spine Details: This documentation accurately reflects the service provided and the decisions made by me, SHEILA Coreas 11/14/24 0430. Part of today???s visit was documented by Emely Mckeon MA, acting as scribe. JACOB LANDA is a 69 year old M here today for lumbar spine. Patient is having pain in the lower back. He states that his pain is a 5 today. Patient states that the pain is a stabbing pain. The pain is mainly on the left side of the lower back. This has been going on for a good 6 months. Patient states that he was in the shower, and was picking up a bottle of shamp (more content not included)... Normal [facility] Operative Reporton 5 Operative Report [facility] Medical Records Department [address] [place] [address] Operative Report 10/15/24 1434 MR#: [id number] Acct: [id number] Name: JACOB LANDA Rep #: [id number] : 1955 69 From: Nikita Jackson MD PCP: Dr. Yaw Singh MD Status:[facility] Location: 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 He presents now for catheter removal. Description of procedure: Upon obtaining informed consent and verification rate patient procedure site the patient was taken to the [place] he was positioned prepped and draped in usual sterile fashion. Timeouts performed and conscious sedation ministered Versed and fentanyl. The cuff of the prior tunneled catheter was then identified and marked and the area surrounding anesthetized 1% lidocaine. This was in close proximity to the skin exit site of the catheter so blunt dissection was utilized to mobilize the catheter and cuff via the skin exit site. Once all of the attached connective tissue was divided the catheter was withdrawn and manual pressure held over the venous entry site for 10 minutes until hemostasis was observed. A dry sterile dressing was then applied and the patient awakened from his sedation and taken to the recovery area with plan discharged to home. Surgical Findings: Intact catheter removed, no fragments remaining on completion fluoroscopy Complications Complications: No 10/15/24 1438 Cosigner Signature (if applicable): CC: Dr. Nikita Jackson MD; Dr. Yaw Singh MD Signed [facility] Emergency Department Summary on 09-17-2024 Emergency Department Summary [facility] Medical Records Department [address] [place] [address] Emergency Department Summary 09/17/24 MR#: [id number] Acct: [id number] Name: JACOB LANDA Rep #: [id number] : 1955 69 From: Sushant Tom MD PCP: Dr. Yaw Singh MD Status:REG ER Location: ED HPI History of Present Illness Chief Complaint: Back Detail of Chief Complaint: Patient presents with right-sided low back pain. Informant: patient Onset/Context/Timing Onset: Yesterday Context: Sudden Onset Injury: twisting Timing: Continuous Quality: Dull, Aching and Throbbing Location: Lumbar (Right side) Current Severity: Mild Maximum Severity: Severe Worsened by: improves with Movement and Bending Relieved by: Remaining Still Associated Symptoms Associated Symptoms: - (Denies saddle paresthesia or anesthesia. Denies radicular pain. Denies foot drop. Denies buckling of his knees going up and down steps.); Negative for Numbness, Tingling, Radiation to Right Leg, Radiation to Left Leg, Fever, Abdominal Pain, Dysuria, Unable to Ambulate, Unable to Transfer, Urinary Retention, Urinary Incontinence, Constipation or Fecal Incontinence Narrative Narrative: Patient is a 69-year-old male. He drove himself to the emergency department. He presents because of right-sided low back pain. Eyes radicular pain. He is numbness of his right lower extremity. Nuys bowel bladder dysfunction. No saddle paresthesia anesthesia. No symptoms of claudication. He does need to use a wheelchair at times. He walks with a cane. Patient does not have history of back issues. He was seen in the past at urgent care and prescribed muscle relaxant for his back pain. He is not a candidate for NSAIDs because of history of th rombocytopenia and the fact he is on long-term anticoagulant and has end-stage renal disease. Prior similar symptoms: Yes Recent Illness/Hospitalization: No PFSH PFSH Medical History Thrombocytopenia Wears glasses Cancer Cancer Pressure ulcer History of renal dialysis History of renal disease Injury of back History of GI bleed Gastric reflux Shortness of breath on exertion History of stress test History of echocardiogram Cardiology follow-up encounter Thrombus of venous dialysis catheter ESRD (end stage renal disease) on dialysis Acute respiratory insufficiency Medical non-compliance Acute exacerbation of chronic heart failure Chronic kidney disease (CKD) Pleural effusion Dyspnea Acute kidney injury Adenocarcinoma of esophagus LEELA (acute kidney injury) Non-smoker Esophageal carcinoma Atherosclerosis of coronary artery of [place] heart without angina pectoris 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 Essential (primary) hypertension Non-rheumatic aortic stenosis Syncope and collapse Hyperlipidemia Atherosclerotic heart disease of [place] coronary artery with other forms of angina pectoris Encounter for long-term current use of high risk medication abnormal stress test Angina pectoris Exertional chest pain Home Medications ???Medication ???Instructions ???Recorded ???Last Taken ???Type atorvastatin 80 mg tablet 80 mg PO QHS CHOLESTEROL #90 tabs 05/15/22 12/24/23 Rx ezetimibe 10 mg tablet 10 mg PO DAILY CHOLESTEROL #90 tab s 05/15/22 12/24/23 Rx metoprolol tartrate 25 mg tablet 25 mg PO BID #0 tabs 10/25/2306/08 05:30 Rx pantoprazole 40 mg tablet,delayed 40 mg PO BID #0 tabs 10/25/23 05:30 Rx release ferrous sulfate 325 mg (65 mg 325 mg PO DAILY #90 tabs 11/20/23 06/29/24 Rx iron) tablet polyethylene glycol 3350 17 17 g PO DAILY PRN constipation Unknown History gram/dose oral powder (Miralax) ondansetron 4 mg disintegrating 4 mg PO Q8H PRN PRN nausea and 12/25/23 08:00 History tablet vomiting nitroglycerin 0.4 mg sublingual 0.4 mg sublingual PRN PRN angina 1 04/15/23 Unknown History tablet aspirin 81 mg chewable tablet 81 mg PO BID #0 tabs 02/17/2406/08 Rx acetaminophen 500 mg tablet 1,000 mg PO Q8 PRN pain 04/29/24 U nknown History amoxicillin 500 mg tablet 2,000 mg (4 x 500 mg) PO ONCE #4 0 04/29/24 Unknown Rx tabs oxycodone 5 mg tablet 5 mg PO Q8H PRN pain 2 days #6 tab s 06/30/24 Unknown Rx oxycodone-acetaminophen 5 mg-325 1 tab PO Q6H PRN PRN pain 5 days 0 09/17/24 Unknown Rx mg tablet #20 TABLETS Allergy/AdvReac Type Severity Reaction Status Date / Time No Known Allergies Allergy Verified 09/17/24 17:30 Family History Father Heart disease Myocardial infarction Hypertension Brother Hypertension Sister Heart disease Myocardial (more content not included)... Normal [facility] MR Brain WO contraston 09-08 IMPRESSION: 1. Suspicion of small subacute left caudate lacunar infarct, small remote cortical infarcts in the right frontal lobe and left cerebellar hemisphere and mild chronic microvascular ischemic changes. . 2. No clear evidence of a pituitary adenoma within the constraints of the acquisition. Nonvisualization of the posterior pituitary gland which is nonspecific but can be seen in setting of SIADH. Gunner'S Mate: MORGAN Transcribe Date/Time: Sep 08 2024 3:29P Dictated by : RICHARD DEAL MD This examination was interpreted and the report reviewed and electronically signed by: RICHARD DEAL MD on Sep 08 2024 3:43PM [facility] DIVISION OF RADIOLOGY * * *Final Report* * * DATE OF EXAM: Sep 08 2024 3:22PM [facility] 0294 - MRI BRAIN WO IVCON / PROCEDURE REASON: multiple diagnoses * * * * Physician Interpretation * * * * EXAMINATION: MRI BRAIN WO IVCON CLINICAL HISTORY: Elevated serum prolactin, FSH, and LH. TECHNIQUE: Routine noncontrast MRI protocol including diffusion images with supplemental high-resolution sagittal and coronal T1 and coronal fast T2 images of the pituitary region.. MQ: MRBWO_2 COMPARISON: None. RESULT: Acute Change: There is no evidence of restricted diffusion to suggest an acute ischemic event. Mild hyperintensity is noted in the superior aspect of the left caudate head on the diffusion trace images but this is isointense on the ADC maps suggesting a small subacute lacunar infarct. Hemorrhage: Minimal chronic blood byproducts are noted in the left caudate head suggesting prior petechial hemorrhage. Punctate remote microhemorrhages are noted in the region of the hand knob of the left precentral gyrus, each parietal centrum semiovale, the subcortical white matter of the right occipital pole, and along the dorsal body of the corpus callosum to the right of midline on SWI. The etiology is uncertain but may relate to the prior cardiac surgery. Mass Lesion/ Mass Effect: No evidence of an intracranial mass or extra-axial fluid collection. No significant mass effect. Chronic Change: A small wedge-shaped parenchymal defect is noted along the inferior aspect of left cerebellar hemisphere compatible with a small remote cortical infarct in the left PICA distribution. Additional small remote cortical infarcts are noted along the dorsal aspect of the right superior frontal gyrus and adjacent precentral gyrus. A few scattered small patchy foci of hyperintensity are noted otherwise in the supratentorial white matter on FLAIR and T2 which are nonspecific but likely represent mild chronic microvascular ischemia in view of the above findings and the patient's chronologic age. Parenchyma: There is mild generalized cortical volume loss. There is moderate enlargement of the lateral and third ventricles suggesting central white matter volume loss for patient of this age. The brain parenchyma is otherwise within normal limits of signal intensity and morphology. Ventricles: Moderate enlargement of lateral and third ventricles suggesting central white matter volume loss as outlined above. Skull Base: High-resolution imaging of the pituitary and suprasellar region demonstrates the adenohypophysis to be within normal limits of caliber and configuration for age. No clear evidence of a mass within the sella within the constraints of acquisition. No evidence of a suprasellar mass. The overlying hypothalamus appears to be within normal limits.. The infundibulum is attenuated but likely intact. The posterior pituitary gland is not clearly appreciated which is nonspecific but can be seen in the setting of SIADH.. Craniocervical junction is normal. No significant marrow replacement process. Vasculature: Major intracranial arterial structures, and dural venous sinuses show typical flow void, suggesting patency by spin echo criteria. Other: Additional note is made of bilateral medial antrostomies, likely partial ethmoidectomies, suspicion of small polyps in the ethmoidectomy beds, left sphenoid sinus and left nasal cavity and mild mucosal thickening in the right maxillary antrum. DIVISION OF RADIOLOGY Provider, [facility] - 09/08/2024 * * *Final Report* * * DATE OF EXAM: Sep 08 2024 3:22PM [facility] 0294 - MRI BRAIN WO IVCON / PROCEDURE REASON: multiple diagnoses * * * * Physician Interpretation * * * * EXAMINATION: MRI BRAIN WO IVCON CLINICAL HISTORY: Elevated serum prolactin, FSH, and LH. TECHNIQUE: Routine noncontrast MRI protocol including diffusion images with supplemental high-resolution sagittal and coronal T1 and coronal fast T2 images of the pituitary region.. MQ: MRBWO_2 COMPARISON: None. RESULT: Acute Change: There is no evidence of restricted diffusion to suggest an acute ischemic event. Mild hyperintensity is noted in the superior aspect of the left caudate head on the diffusion trace images but this is isointense on the ADC maps suggesting a small subacute lacunar infarct. Hemorrhage: Minimal chronic blood byproducts are noted in the left caudate head suggesting prior petechial hemorrhage. Punctate remote microhemorrhages are noted in the region of the hand knob of the left precentral gyrus, each parietal centrum semiovale, the subcortical white matter of the right occipital pole, and along the dorsal body of the corpus callosum to the right of midline on SWI. The etiology is uncertain but may relate to the prior cardiac surgery. Mass Lesion/ Mass Effect: No evidence of an intracranial mass or extra-axial fluid collection. No significant mass effect. Chronic Change: A small wedge-shaped parenchymal defect is noted along the inferior aspect of left cerebellar hemisphere compatible with a small remote cortical infarct in the left PICA distribution. Additional small remote cortical infarcts are noted along the dorsal aspect of the right superior frontal gyrus and adjacent precentral gyrus. A few scattered small patchy foci of hyperintensity are noted otherwise in the supratentorial white matter on FLAIR and T2 which are nonspecific but likely represent mild chronic microvascular ischemia in view of the above findings and the patient's chronologic age. Parenchyma: There is mild generalized cortical volume loss. There is moderate enlargement of the lateral and third ventricles suggesting central white matter volume loss for patient of this age. The brain parenchyma is otherwise within normal limits of signal intensity and morphology. Ventricles: Moderate enlargement of lateral and third ventricles suggesting central white matter volume loss as outlined above. Skull Base: High-resolution imaging of the pituitary and suprasellar region demonstrates the adenohypophysis to be within normal limits of caliber and configuration for age. No clear evidence of a mass within the sella within the constraints of acquisition. No evidence of a suprasellar mass. The overlying hypothalamus appears to be within normal limits.. The infundibulum is attenuated but likely intact. The posterior pituitary gland is not clearly appreciated which is nonspecific but can be seen in the setting of SIADH.. Craniocervical junction is normal. No significant marrow replacement process. Vasculature: Major intracranial arterial structures, and dural venous sinuses show typical flow void, suggesting patency by spin echo criteria. Other: Additional note is made of bilateral medial antrostomies, likely partial ethmoidectomies, suspicion of small polyps in the ethmoidectomy beds, left sphenoid sinus and left nasal cavity and mild mucosal thickening in the right maxillary antrum. IMPRESSION IMPRESSION: 1. Suspicion of small subacute left caudate lacunar infarct, small remote cortical infarcts in the right frontal lobe and left cerebellar hemisphere and mild chronic microvascular ischemic changes. . 2. No clear evidence of a pituitary adenoma within the constraints of the acquisition. Nonvisualization of the posterior pituitary gland which is nonspecific but can be seen in setting of SIADH. Gunner'S Mate: MORGAN Transcribe Date/Time: Sep 08 2024 3:29P Dictated by : RICHARD DEAL MD This examination was interpreted and the report reviewed and electronically signed by: RICHARD DEAL MD on Sep 08 2024 3:43PM EST [facility] Radiology Study observation (narrative) [facility] MR Brain WO contrastOrdered By: [facility] Provider on 09-08-2024 [facility] Surgery Visit Reporton 09-02 Surgery Visit Report [facility] [address] [place] [address] OFFICE VISIT Date of Service: 09/02/24 MR#: [id number] Acct: [id number] Name: JACOB LANDA Rep #: [id number] : 1955 Provider: SHEILA Becker Age/Sex: 69/M [place] [facility] [place]: Signed Intake Vital Signs 06/30/24 07:02 09/02/24 13:52 Height 5 ft 9 in Weight: 161 lb BP 107/71 Blood Pressure Location Rt brachial Position Sitting Respiration 16 Pulse 112 H Pulse Source Monitor Temp 97.5 F L Temp Source Temporal Pulse Oximetry (%) 96 Oxygen Delivery Method room air Intake Visit Reasons: 6-8 WK FU Is patient in pain?: No Allergies No Known Allergies Allergy (Verified 09/02/24 13:54) Medications ???Medication ???Instructions ???Recorded ???Confirmed ???Type atorvastatin 80 mg tablet 80 mg PO QHS CHOLESTEROL #90 tabs 05/15/22 09/02/24 Rx ezetimibe 10 mg tablet 10 mg PO DAILY CHOLESTEROL #90 tab s 05/15/22 09/02/24 Rx metoprolol tartrate 25 mg tablet 25 mg PO BID #0 tabs 10/25/2308/08 Rx pantoprazole 40 mg tablet,delayed 40 mg PO BID #0 tabs 10/25/23 Rx release ferrous sulfate 325 mg (65 mg 325 mg PO DAILY #90 tabs 11/20/23 09/02/24 Rx iron) tablet polyethylene glycol 3350 17 17 g PO DAILY PRN constipation 09/02/24 History gram/dose oral powder (Miralax) ondansetron 4 mg disintegrating 4 mg PO Q8H PRN PRN nausea and 09/02/24 History tablet vomiting nitroglycerin 0.4 mg sublingual 0.4 mg sublingual PRN PRN angina 1 04/15/23 09/02/24 History tablet aspirin 81 mg chewable tablet 81 mg PO BID #0 tabs 02/17/2408/08 Rx acetaminophen 500 mg tablet 1,000 mg PO Q8 PRN pain 04/29/24 0 09/02/24 History amoxicillin 500 mg tablet 2,000 mg (4 x 500 mg) PO ONCE #4 0 04/29/24 09/02/24 Rx tabs oxycodone 5 mg tablet 5 mg PO Q8H PRN pain 2 days #6 tab s 06/30/24 09/02/24 Rx Have you fallen in the past year?: No Subjective Details: Mr. Jacob Landa presents today for postoperative follow-up s/p L upper arm brachiocephalic AVF creation on 06/30/24. He is not having any new/worsening pain, swelling, numbness/paresthesias, or weakness through the LUE. He has continued dialysis through his R IJ catheter without issue. He has been performing hand exercises 4 times a day. He has no concerns today. Objective Details: A Ox3, NAD RRR Nonlabored respirations L upper arm AVF with great thrill and bruit throughout its course in the upper arm; palpable L radial pulse, L hand sensory and motor intact, pink and warm Coding Level of Care Code Global Post Op Diagnoses AV fistula I77.0 [facility] Medical History Wears glasses Cancer Cancer Pressure ulcer History of renal dialysis History of renal disease Injury of back History of GI bleed Gastric reflux Shortness of breath on exertion History of stress test History of echocardiogram Cardiology follow-up encounter Thrombus of venous dialysis catheter ESRD (end stage renal disease) on dialysis Acute respiratory insufficiency Medical non-compliance Acute exacerbation of chronic heart failure Chronic kidney disease (CKD) Pleural effusion Dyspnea Acute kidney injury Adenocarcinoma of esophagus LEELA (acute kidney injury) Non-smoker Esophageal carcinoma Atherosclerosis of coronary artery of [place] heart without angina pectoris 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 Essential (primary) hypertension Non-rheumatic aortic stenosis Syncope and collapse Hyperlipidemia Atherosclerotic heart disease of [place] coronary artery with other forms of angina pectoris Encounter for long-term current use of high risk medication abnormal stress test Angina pectoris Exertional chest pain Surgical History History of hip replacement ( 02/2024) History of cardiac catheterization History of esophagogastroduodenoscopy (EGD) Hx of surgical procedure History of aortic valve replacement (03/03/19) History of coronary artery stent placement (12/31/18) H/O coronary artery bypass surgery (09/18/02) History of tonsillectomy History of hernia repair Family History Father Heart disease Myocardial infarction Hypertension Brother Hypertension Sister Heart disease Myocardial infarction Social History Smoking Status: Never smoker alcohol intake: never substance use type: does not use caffeine: No what type of physical act (more content not included)... [facility] EMEKA Pineda [address] [facility] Nabil PADILLA * * *Final Report* * * DATE OF EXAM: Aug 27 2024 10:32AM [id number] - [facility] DIAG Nabil [place] / PROCEDURE REASON: multiple diagnoses * * * * Physician Interpretation * * * * RESULT: [place] [address] #[id number] - [facility] EMEKA PADILLA #[id number] - [facility] [employer] BREAST LTD RT HISTORY: 69 year-old patient seen for diagnostic evaluation of a palpable abnormality, area of clinical concern and focal pain in the right breast. Patient is asymptomatic in the left breast. Patient states no personal history of breast cancer. The patient has a family history of breast and ovarian cancer. COMPARISON STUDIES: The present examination has been compared to a prior imaging study dated 08/27/2024 (ultrasound). MAMMOGRAM TECHNIQUE: The study was acquired using full field digital technology and interpreted from soft copy. Digital Breast Tomosynthesis (DBT) images were obtained and used to assist in the interpretation of this examination. MAMMOGRAM FINDINGS: The breasts are almost entirely fatty. There is a focal asymmetry in the subareolar region of the right breast. This is consistent with gynecomastia. Similar less extensive changes are seen within the contralateral left breast. This corresponds as palpated. No suspicious masses, calcifications or other abnormalities are seen in either breast. ULTRASOUND TECHNIQUE: Targeted ultrasound of the indicated area was performed. Stokes scale images were saved. ULTRASOUND FINDINGS: Ultrasound demonstrates an area in the retroareolar region of the right breast. Internal echotexture is heterogenous. This is consistent with gynecomastia. No sonographic evidence of a focal suspicious mass. There are no suspicious findings in the imaged area. IMPRESSION: Right breast gynecomastia is benign. Clinical correlation and follow-up recommended. There is no mammographic or sonographic evidence of malignancy. BI-RADS Category 2: Benign Interpreting Radiologist: Renetta Vazquez M.D. Electronically signed on: 08/27/2024 Gunner'S Mate: PEDRO Transcribe Date/Time: Aug 27 2024 10:05A Dictated by: RENETTA VAZQUEZ MD This examination was interpreted and the report reviewed and electronically signed by: RENETTA VAZQUEZ MD on Aug 27 2024 11:15AM EST [id number] Normal [facility] US BREAST LTD RTon 08-27 [facility] US BREAST LTD RT * * *Final Report* * * DATE OF EXAM: Aug 27 2024 10:49AM [id number] - [facility] US BREAST LTD RT / PROCEDURE REASON: multiple diagnoses * * * * Physician Interpretation * * * * [place] [address] #[id number] - [facility] EMEKA PADILLA #[id number] - [facility] US BREAST LTD RT HISTORY: 69 year-old patient seen for diagnostic evaluation of a palpable abnormality, area of clinical concern and focal pain in the right breast. Patient is asymptomatic in the left breast. Patient states no personal history of breast cancer. The patient has a family history of breast and ovarian cancer. COMPARISON STUDIES: The present examination has been compared to a prior imaging study dated 08/27/2024 (ultrasound). MAMMOGRAM TECHNIQUE: The study was acquired using full field digital technology and interpreted from soft copy. Digital Breast Tomosynthesis (DBT) images were obtained and used to assist in the interpretation of this examination. MAMMOGRAM FINDINGS: The breasts are almost entirely fatty. There is a focal asymmetry in the subareolar region of the right breast. This is consistent with gynecomastia. Similar less extensive changes are seen within the contralateral left breast. This corresponds as palpated. No suspicious masses, calcifications or other abnormalities are seen in either breast. ULTRASOUND TECHNIQUE: Targeted ultrasound of the indicated area was performed. Stokes scale images were saved. ULTRASOUND FINDINGS: Ultrasound demonstrates an area in the retroareolar region of the right breast. Internal echotexture is heterogenous. This is consistent with gynecomastia. No sonographic evidence of a focal suspicious mass. There are no suspicious findings in the imaged area. IMPRESSION: Right breast gynecomastia is benign. Clinical correlation and follow-up recommended. There is no mammographic or sonographic evidence of malignancy. BI-RADS Category 2: Benign Interpreting Radiologist: Renetta Vazquez M.D. Electronically signed on: 08/27/2024 Gunner'S Mate: PEDRO Transcribe Date/Time: Aug 27 2024 10:41A Dictated by : RENETTA VAZQUEZ MD This examination was interpreted and the report reviewed and electronically signed by: RENETTA VAZQUEZ MD on Aug 27 2024 11:15AM EST [id number] Normal [facility] CNOVon 08-20-2024 CNOV Office Visit (UCWSTR ) -- JACOB LANDA ([id number]) 1955 M Date Time Provider Department 08/20/24 8:15 AM STEVE YOUSSEF [facility] During your visit today, we recorded the following information about you: Temperature Pulse Respiration Blood pressure 97.2 degrees 84/minute 16/minute 118/74 Weight 74.3 kg Steve Youssef PA-C 08/20/2024 6:42 PM Signed This note was created using Validaster. Subjective Jacob Landa is a 69 year old male. Patient is a 69-year-old male who complains of bilateral lower back pain that he noted upon awakening this morning. Patient denies specific accident or injury but does state that he believes his symptoms are related to mowing his yard 2 days ago. Patient states that he spent a significant amount of time driving his tractor while mowing the yard despite warnings from his not to do so. Patient denies fall or other injury. Patient reports no paresthesia or paralysis to his bilateral legs and states he is able to bear weight and ambulate although it is painful to do so. Patient denies radiation of the pain to his buttocks and legs. Patient states he has full control of bowel and bladder denies episodes of incontinence. 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 Patient has no history of metastatic disease or degenerative disc disease to the lumbar spine. Patient's most recent MRI imaging was obtained on 07 May 2024. Patient denies dysuria, hematuria or flank pain. Review of Systems Musculoskeletal: Positive for back pain. All other systems reviewed and are negative. Objective BP 118/74 Pulse 84 Temp 36.2 ?C (97.2 ?F) Resp 16 Wt 74.3 kg (163 lb 12.8 oz) SpO2 96% BMI 23.50 kg/m? Physical Exam Vitals and nursing note reviewed. Constitutional: Appearance: Normal appearance. He is normal weight. HENT: Head: Normocephalic and atraumatic. Nose: Nose normal. Mouth/Throat: Mouth: Mucous membranes are moist. Pharynx: Oropharynx is clear. Eyes: Extraocular Movements: Extraocular movements intact. Conjunctiva/sclera: Conjunctivae normal. Pupils: Pupils are equal, round, and reactive to light. Cardiovascular: Rate and Rhythm: Normal rate. Pulses: Normal pulses. Pulmonary: Effort: Pulmonary effort is normal. Breath sounds: Normal breath sounds. Musculoskeletal: General: Tenderness present. No swelling, deformity or signs of injury. Normal range of motion. Cervical back: Normal range of motion and neck supple. Right lower leg: No edema. Left lower leg: No edema. Comments: Clearly reproducible tenderness to the bilateral paravertebral muscles is noted to the inferior lumbar back at the level of L3-L5. There is no crepitus or deformity noted with palpation of the lumbar spine. Overlying skin is clear without erythema or ecchymosis. MSP to the bilateral legs is fully intact and muscle strength is 5/5. Gait and station are slightly antalgic secondary to stiffness and pain. Skin: General: Skin is warm and dry. Capillary Refill: Capillary refill takes less than 2 seconds. Findings: No bruising or erythema. Neurological: General: No focal deficit present. Mental Status: He is alert and oriented to person, place, and time. Sensory: No sensory deficit. Motor: No weakness. Coordination: Coordination normal. Gait: Gait abnormal. Psychiatric: Mood and Affect: Mood normal. Behavior: Behavior normal. Thought Content: Thought content normal. Judgment: Judgment normal. Assessment and Plan Physical exam findings as noted above. X-ray lumbar spine is negative for acute findings, however the radiologist does report possible new mild L5 superior endplate compression deformity. Patient was provided with a prescription for Robaxin 500 mg and advised to schedule appointment with his primary care physician for further evaluation management if he experiences no improvement in his symptoms. Additional supportive care was discussed with patient verbalizes excellent understanding of same. CLINICAL IMPRESSION: Acute Bilateral Lumbar Back Pain ASSESSMENT/PLAN: 1. Acute bilateral low back pain without sciatica - ICD9: 724.2, 338.19, ICD10: M54.50 - XR LUMBAR GENERAL 3V AP/LAT/L5-S1 - METHOCARBAMOL 500 MG TABLET MDM Amount and/or Complexity of Data Reviewed Tests in the radiology section of CPT?: ordered and reviewed Risk of Complications, Morbidity, and/or Mortality Presenting problems: low Diagnostic procedures: low Management options: low Steve OPAL Youssef Allergies As of Date: 08/20/2024 Noted Allergy Reaction SEASONAL ALLERGIES 07/12/2023 14 - Other: See Comments Comments: Sneezing, watery eyes, runny nose. Date Reviewed: 08/20/2024 Reviewed by: Susan Sanchez MA - Fully Assessed Reason for Visit: Low Back Pain [126] Cmt: x this am, mowing last week Primary Visi (more content not included)... Normal [facility] XR LUMBAR 3V AP/LAT/L5-S1on 08-20-2024 XR LUMBAR 3V AP/LAT/L5-S1 * * *Final Report* * * DATE OF EXAM: Aug 20 2024 8:57AM WOX [id number] - XR LUMBAR 3V AP/LAT/L5-S1 / PROCEDURE REASON: Acute bilateral low back pain without sciatica * * * * Physician Interpretation * * * * EXAMINATION: XR LUMBAR 3V AP/LAT/L5-S1 TECHNOLOGIST PROVIDED HISTORY: bilateral low back pain x 1 week after mowing the lawn. CLINICAL INFORMATION: 69 years old Male with Acute bilateral low back pain without sciatica. Bilateral Lumbar Back Pain--No Injury--History of Thoracic Spine Metastasis. TECHNIQUE: XR LUMBAR 3V AP/LAT/L5-S1 Laterality: NOT APPLICABLE Number of different views (projections): 3 COMPARISON: CT abdomen pelvis 04/17/2024 RESULT: Lumbar spine: Counting reference: Lumbosacral junction. For the purposes of this report, L3-L4 is considered the level of the iliac crest and there are 5 lumbar-type vertebrae. Anatomic Variants: None. Post-op assessment: N/A Alignment: Minimal levoconvex asymmetry of the lumbar spine. Alignment is otherwise satisfactory. Vertebral bodies: Bones are demineralized. Possible new mild L5 superior endplate compression deformity. Spine articulations: Disc spaces are maintained. Facet degenerative changes lower lumbar spine. Other: Sacroiliac joints are symmetric and maintained. Faintly visualized RIGHT nephrolithiasis. Calcified granulomata in the spleen. Vascular calcifications. Herniorrhaphy mesh tacks RIGHT inguinal region. IMPRESSION: Possible new mild L5 superior endplate compression deformity. Recommend further evaluation with cross-sectional imaging. Gunner'S Mate: MORGAN Transcribe Date/Time: Aug 20 2024 9:13A Dictated by : GLENNY ASHTON DO This examination was interpreted and the report reviewed and electronically signed by: GLENNY ASHTON DO on Aug 20 2024 9:21AM EST [id number] Normal [facility] XR Lumbar spine 3 Viewson IMPRESSION: Possible new mild L5 superior endplate compression deformity. Recommend further evaluation with cross-sectional imaging. Gunner'S Mate: MORGAN Transcribe Date/Time: Aug 20 2024 9:13A Dictated by : GLENNY ASHTON DO This examination was interpreted and the report reviewed and electronically signed by: GLENNY ASHTON DO on Aug 20 2024 9:21AM EST DIVISION OF RADIOLOGY * * *Final Report* * * DATE OF EXAM: Aug 20 2024 8:57AM WOX [id number] - XR LUMBAR 3V AP/LAT/L5-S1 / PROCEDURE REASON: Acute bilateral low back pain without sciatica * * * * Physician Interpretation * * * * EXAMINATION: XR LUMBAR 3V AP/LAT/L5-S1 TECHNOLOGIST PROVIDED HISTORY: bilateral low back pain x 1 week after mowing the lawn. CLINICAL INFORMATION: 69 years old Male with Acute bilateral low back pain without sciatica. Bilateral Lumbar Back Pain--No Injury--History of Thoracic Spine Metastasis. TECHNIQUE: XR LUMBAR 3V AP/LAT/L5-S1 Laterality: NOT APPLICABLE Number of different views (projections): 3 COMPARISON: CT abdomen pelvis 04/17/2024 RESULT: Lumbar spine: Counting reference: Lumbosacral junction. For the purposes of this report, L3-L4 is considered the level of the iliac crest and there are 5 lumbar-type vertebrae. Anatomic Variants: None. Post-op assessment: N/A Alignment: Minimal levoconvex asymmetry of the lumbar spine. Alignment is otherwise satisfactory. Vertebral bodies: Bones are demineralized. Possible new mild L5 superior endplate compression deformity. Spine articulations: Disc spaces are maintained. Facet degenerative changes lower lumbar spine. Other: Sacroiliac joints are symmetric and maintained. Faintly visualized RIGHT nephrolithiasis. Calcified granulomata in the spleen. Vascular calcifications. Herniorrhaphy mesh tacks RIGHT inguinal region. DIVISION OF RADIOLOGY Provider, Ned Barbosa - 08/20/2024 * * *Final Report* * * DATE OF EXAM: Aug 20 2024 8:57AM WOX [id number] - XR LUMBAR 3V AP/LAT/L5-S1 / PROCEDURE REASON: Acute bilateral low back pain without sciatica * * * * Physician Interpretation * * * * EXAMINATION: XR LUMBAR 3V AP/LAT/L5-S1 TECHNOLOGIST PROVIDED HISTORY: bilateral low back pain x 1 week after mowing the lawn. CLINICAL INFORMATION: 69 years old Male with Acute bilateral low back pain without sciatica. Bilateral Lumbar Back Pain--No Injury--History of Thoracic Spine Metastasis. TECHNIQUE: XR LUMBAR 3V AP/LAT/L5-S1 Laterality: NOT APPLICABLE Number of different views (projections): 3 COMPARISON: CT abdomen pelvis 04/17/2024 RESULT: Lumbar spine: Counting reference: Lumbosacral junction. For the purposes of this report, L3-L4 is considered the level of the iliac crest and there are 5 lumbar-type vertebrae. Anatomic Variants: None. Post-op assessment: N/A Alignment: Minimal levoconvex asymmetry of the lumbar spine. Alignment is otherwise satisfactory. Vertebral bodies: Bones are demineralized. Possible new mild L5 superior endplate compression deformity. Spine articulations: Disc spaces are maintained. Facet degenerative changes lower lumbar spine. Other: Sacroiliac joints are symmetric and maintained. Faintly visualized RIGHT nephrolithiasis. Calcified granulomata in the spleen. Vascular calcifications. Herniorrhaphy mesh tacks RIGHT inguinal region. IMPRESSION IMPRESSION: Possible new mild L5 superior endplate compression deformity. Recommend further evaluation with cross-sectional imaging. Gunner'S Mate: PSCB Transcribe Date/Time: Aug 20 2024 9:13A Dictated by : GLENNY ASHTON DO This examination was interpreted and the report reviewed and electronically signed by: GLENNY ASHTON DO on Aug 20 2024 9:21AM EST [facility] Radiology Study observation (narrative) [facility] XR Lumbar spine 3 ViewsOrder ed By: Ccf Provider on 08-20-2024 [facility] CNOVon 08-05-2024 CNOV Office Visit (UCWSTR ) -- JACOB LANDA ([id number]) 1955 M Date Time Provider Department 08/05/24 12:45 PM MARCELA REAL WSTR During your visit today, we recorded the following information about you: Temperature Pulse Respiration Blood pressure 98.2 degrees 90/minute 16/minute 122/64 Weight 75.3 kg Marcela Real PA 08/05/2024 12:54 PM Signed [facility] Subjective Jacob Landa is a 69 year old male. Patient presents with: Derm Problem: left forearm scratched by puppy last night HPI 69-year-old male presents for scratch to left forearm. Patient states he was scratched by his puppy last night on his left forearm. He is a dialysis patient and has a fistula of the left upper arm. He states it has not matured yet, so he does not receive dialysis through it. The scratch does not cross the fistula. He has no pain in the arm. No drainage. No redness. Last tetanus was in April. He did put antibiotic ointment on it yesterday evening. No other complaint. Puppy up-to-date on vaccines. PAST MEDICAL HISTORY Diagnosis Date Advance directive discussed with patient 02/09/2022 Discussed 02/2022, packets provided AK (actinic keratosis) 09/07/2020 One on the right forearm dorsal, three on the left forearm dorsal and one left side of face hear hair line about eye level. Tx cryo 09/2020 Aortic valve stenosis 07/26/2015 Ascending aorta dilation 09/21/2023 09/21/2023: 4.1cm Asthma BPH (benign prostatic hyperplasia) 07/20/2014 Carpal tunnel syndrome of right wrist CKD (chronic kidney disease) stage 4, GFR 15-29 ml/min ([facility]) 01/03/2024 On dialysis and seeing Dr. Greenberg. Closed wedge compression fracture of T10 vertebra (HCC) 07/12/2023 Coronary artery disease involving [place] coronary artery without angina pectoris Seeing Dr. Noland DDD (degenerative disc disease), lumbar 11/04/2019 Elevated blood sugar 03/11/2024 Esophageal adenocarcinoma (HCC) 08/09/2020 Essential hypertension, benign Family history of breast cancer 06/30/2024 Family history of ovarian cancer 06/30/2024 GERD (gastroesophageal reflux disease) 07/12/2009 History of kidney stones 07/20/2014 Iron deficiency anemia due to chronic blood loss 05/25/2020 Iron malabsorption 05/25/2020 Kidney stone Kyphosis (acquired) (postural) 07/30/[address] 03/11/2024 DPA: Lacho (step daughter) Malignant 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) 04/15/2020 Medicare annual wellness visit, subsequent 01/13/2021 Medical B eligibilty date 03/09/19 Date of last exam 01/13/2021 Mixed hyperlipidemia MRSA (methicillin resistant Staphylococcus aureus) 12/01/2016 treated with course of Linezolid beginning 10/29/16 Nonrheumatic aortic valve disorder On tube feeding diet 08/14/2020 History: 65 year old male s/p Adrián Roger esophagectomy, Pyloromyotomy, Jejunostomy tube placement for esophageal adenocarcinoma -Diet: Isosource 1.5 to 50 cc hour with 100 cc water flushes 8 times per day and Bene protein 3 times per day Removed 11/17/2020 Personal history of colonic polyps 12/27/2009 Rn Wound's nodules 03/30/2023 Will try pamelor Pleural effusion 03/11/2021 Stable in f/u studies. Pressure ulcer of unspecified buttock, stage 2 (HCC) 01/03/2024 Bilaterally. 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 4 07/23/2017 S/P TAVR (transcatheter aortic valve replacement) 04/30/2024 Needs dental prophylaxis. 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 Due to repeat anemia 01/01/2024 felt Eliquis could be stopped since risk did not out way benefit. Upper GI bleed 05/25/2020 PAST SURGICAL HISTORY Procedure Laterality Date ADENOIDECTOMY PRIMARY Adenoidectomy AORTIC VALVE RECONSTRUCTION 03/03/2019 s/p TAVR BYP OTH/THN VEIN CAROTID-SUBCLAVIAN 2002 Bypass graft carotid subcl COLONOSCOPY FLX DX W/COLLJ SPEC WHEN PFRMD 02/28/2013 COLONOSCOPY FLX DX W/COLLJ SPEC WHEN PFRMD 12/06/2016 repeat in 5 yrs COLONOSCOPY SCRN NOT HIGH RISK 06/01/2020 COLONOSCOPY W/BIOPSY SINGLE/MULTIPLE 02/22/2007 Diminutive polyp distal [id number] ECHO 01/08/2021 EGD 04/15/2020 HEART CATHETERIZATION 12/2018 with 2 stents IMPLANT MESH OPN HERNIA RPR/DEBRIDEMENT CLOSURE 03/06/2007 LAPAROSCOPY SURG RPR INITIAL INGUINAL HERNIA 03/06/2007 umbilical NM CARDIAC STRESS TEST 01/08/2021 PAST SURGICAL HISTORY OF Right 2016 incision and drainage right axillary abscess REPAIR ANORECTAL FISTULA W/PLUG 12/06/2016 REPAIR FIRST ABDOMINAL WALL HERNIA 03/06/2007 right STENT - CORONARY 2014 x3 AND x2 12/2018 TONSILLECTOMY PRIMARY/SECONDARY Tonsillectomy TOT/SUB ESOPHAGECTOMY W/THORACOT 08/09/2020 [place] esophagectomy, jejunostomy tube placement TOTAL HIP REPLACEMENT Left 02/15/2024 ALLERGIES Seasona (more content not included)... Normal [facility] Surgery Visit Reporton 07-22 Surgery Visit Report [facility] [address] [place] [address]. [address] [place] [address] OFFICE VISIT Date of Service: 07/22/24 MR#: [id number] Acct: [id number] Name: JACOB LANDA Rep #: [id number] : 1955 Provider: SHEILA Becker Age/Sex: 69/M [place] [facility] [place]: Signed Intake Vital Signs 06/30/24 07:02 07/22/24 14:21 Height 5 ft 9 in Weight: 164 lb BP 103/65 Blood Pressure Location Rt brachial Position Sitting Respiration 16 Pulse 86 Pulse Source Monitor Temp 98.2 F Temp Source Temporal Pulse Oximetry (%) 97 Oxygen Delivery Method room air Intake Visit Reasons: Post Fistula Creation 2-3 WK FU Is patient in pain?: No Allergies No Known Allergies Allergy (Verified 07/22/24 14:22) Medications ???Medication ???Instructions ???Recorded ???Confirmed ???Type atorvastatin 80 mg tablet 80 mg PO QHS CHOLESTEROL #90 tabs 05/15/22 07/22/24 Rx ezetimibe 10 mg tablet 10 mg PO DAILY CHOLESTEROL #90 tab s 05/15/22 07/22/24 Rx metoprolol tartrate 25 mg tablet 25 mg PO BID #0 tabs 10/25/2307/08 Rx pantoprazole 40 mg tablet,delayed 40 mg PO BID #0 tabs 10/25/23 Rx release ferrous sulfate 325 mg (65 mg 325 mg PO DAILY #90 tabs 11/20/23 07/22/24 Rx iron) tablet polyethylene glycol 3350 17 17 g PO DAILY PRN constipation 07/22/24 History gram/dose oral powder (Miralax) ondansetron 4 mg disintegrating 4 mg PO Q8H PRN PRN nausea and 07/22/24 History tablet vomiting nitroglycerin 0.4 mg sublingual 0.4 mg sublingual PRN PRN angina 1 04/15/23 07/22/24 History tablet aspirin 81 mg chewable tablet 81 mg PO BID #0 tabs 02/17/2407/08 Rx acetaminophen 500 mg tablet 1,000 mg PO Q8 PRN pain 04/29/24 0 07/22/24 History amoxicillin 500 mg tablet 2,000 mg (4 x 500 mg) PO ONCE #4 0 04/29/24 07/22/24 Rx tabs oxycodone 5 mg tablet 5 mg PO Q8H PRN pain 2 days #6 tab s 06/30/24 07/22/24 Rx Have you fallen in the past year?: No Subjective Details: Mr. Jacob Landa presents today for initial postoperative follow-up s/p L upper arm brachiocephalic AVF creation on 06/30/24. He reports that the incision site is well healed and he is not having any new/worsening pain, swelling, numbness/paresthesias, or weakness through the LUE. He has continued dialysis through his R IJ catheter without issue. He has been performing hand exercises 4 times a day. He has no concerns today. Objective Details: A Ox3, NAD RRR Nonlabored respirations L upper arm AVF with great thrill throughout the upper arm and great bruit; palpable L radial pulse, L hand sensory and motor intact, pink and warm Coding Level of Care Code Global Post Op Diagnoses AV fistula I77.0 [facility] Medical History Wears glasses Cancer Cancer Pressure ulcer History of renal dialysis History of renal disease Injury of back History of GI bleed Gastric reflux Shortness of breath on exertion History of stress test History of echocardiogram Cardiology follow-up encounter Thrombus of venous dialysis catheter ESRD (end stage renal disease) on dialysis Acute respiratory insufficiency Medical non-compliance Acute exacerbation of chronic heart failure Chronic kidney disease (CKD) Pleural effusion Dyspnea Acute kidney injury Adenocarcinoma of esophagus LEELA (acute kidney injury) Non-smoker Esophageal carcinoma Atherosclerosis of coronary artery of [place] heart without angina pectoris 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 Essential (primary) hypertension Non-rheumatic aortic stenosis Syncope and collapse Hyperlipidemia Atherosclerotic heart disease of [place] coronary artery with other forms of angina pectoris Encounter for long-term current use of high risk medication abnormal stress test Angina pectoris Exertional chest pain Surgical History History of hip replacement ( 02/2024) History of cardiac catheterization History of esophagogastroduodenoscopy (EGD) Hx of surgical procedure History of aortic valve replacement (03/03/19) History of coronary artery stent placement (12/31/18) H/O coronary artery bypass surgery (09/18/02) History of tonsillectomy History of hernia repair Family History Father Heart disease Myocardial infarction Hypertension Brother Hypertension Sister Heart disease Myocardial infarction Social History Smoking Status: Never smoker alcohol intake: never sub (more content not included)... Normal [facility] B-HCG SerPl-aCncon 5 HCG.beta subunit Qn m[IU]/mL Normal <5.0 [facility] Comment on above: Order Comment: Speci men Type: BLOOD SPECIMENOrdering Facility: [facility] Address: [address] [place] [address] Performed By: #### 2 [id number] ####[facility] LABCLIA [id number] KYLE GUTIERREZ [id number] [place] [address] OF [facility] CNOVon 06-30-2024 CNOV Office Visit (FAMPWS ) -- JACOB LANDA ([id number]) 1955 M Date Time Provider Department 06/30/24 2:00 PM [facility] During your visit today, we recorded the following information about you: Temperature Pulse Respiration Blood pressure 97.7 degrees 70/minute 18/minute 112/74 Weight 73.5 kg Yaw Singh MD 06/30/2024 4:49 PM Signed Chief Complaint Patient presents with: Breast Problem HPI Jacob Landa is a 69 year old male who presents here today for right breast sore/swollen x 1 month . Has felt a lump in the right breast. No fevers, chills, nipple discharge, skin dimpling. No new meds. No blood from the nipple. The lump has been tender. Patient with hx of CAD, hyperlipidemia, aortic valve stenosis, asthma, GERD, esophageal cancer, DDD, depression, BPH and those as below. Mom had breast cancer and ovarian cancer. Patient quentin noticed that when he sits he sometimes gets burning pain in his butt were he had the skin ulcers. He hs gotten a gel pad to sit on and this as improved this sensation a lot. Past medical history, appointments, medications, allergies reviewed. Previous Medical History PAST MEDICAL HISTORY Diagnosis Date Advance directive discussed with patient 02/09/2022 Discussed 02/2022, packets provided AK (actinic keratosis) 09/07/2020 One on the right forearm dorsal, three on the left forearm dorsal and one left side of face hear hair line about eye level. Tx cryo 09/2020 Aortic valve stenosis 07/26/2015 Ascending aorta dilation ([facility]) 09/21/2023 09/21/2023: 4.1cm Asthma BPH (benign prostatic hyperplasia) 07/20/2014 Carpal tunnel syndrome of right wrist CKD (chronic kidney disease) stage 4, GFR 15-29 ml/min ([facility]) 01/03/2024 On dialysis and seeing Dr. Greenberg. Closed wedge compression fracture of T10 vertebra ([facility]) 07/12/2023 Coronary artery disease involving snoqualmie coronary artery without angina pectoris Seeing Dr. Noland DDD (degenerative disc disease), lumbar 11/04/2019 Elevated blood sugar 03/11/2024 Esophageal adenocarcinoma ([facility]) 08/09/2020 Essential hypertension, benign GERD (gastroesophageal reflux disease) 07/12/2009 History of kidney stones 07/20/2014 Iron deficiency anemia due to chronic blood loss 05/25/2020 Iron malabsorption 05/25/2020 Kidney stone Kyphosis (acquired) (postural) 07/30/[address] 03/11/2024 DPA: Lacho (step daughter) Malignant neoplasm of lower third of esophagus ([facility]) 04/15/2020 Medicare annual wellness visit, subsequent 01/13/2021 Medical B eligibilty date 03/09/19 Date of last exam 01/13/2021 Mixed hyperlipidemia MRSA (methicillin resistant Staphylococcus aureus) 12/01/2016 treated with course of Linezolid beginning 10/29/16 Nonrheumatic aortic valve disorder On tube feeding diet 08/14/2020 History: 65 year old male s/p [place] esophagectomy, Pyloromyotomy, Jejunostomy tube placement for esophageal adenocarcinoma -Diet: Isosource 1.5 to 50 cc hour with 100 cc water flushes 8 times per day and Bene protein 3 times per day Removed 11/17/2020 Personal history of colonic polyps 12/27/2009 Rn Wound's nodules 03/30/2023 Will try pamelor Pleural effusion 03/11/2021 Stable in f/u studies. Pressure ulcer of unspecified buttock, stage 2 ([facility]) 01/03/2024 Bilaterally. 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 4 07/23/2017 S/P TAVR (transcatheter aortic valve replacement) 04/30/2024 Needs dental prophylaxis. 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 Due to repeat anemia 01/01/2024 felt Eliquis could be stopped since risk did not out way benefit. Upper GI bleed 05/25/2020 Previous Surgical History PAST SURGICAL HISTORY Procedure Laterality Date ADENOIDECTOMY PRIMARY Adenoidectomy AORTIC VALVE RECONSTRUCTION 03/03/2019 s/p TAVR BYP OTH/THN VEIN CAROTID-SUBCLAVIAN 2002 Bypass graft carotid subcl COLONOSCOPY FLX DX W/COLLJ SPEC WHEN PFRMD 02/28/2013 COLONOSCOPY FLX DX W/COLLJ SPEC WHEN PFRMD 12/06/2016 repeat in 5 yrs COLONOSCOPY SCRN NOT HIGH RISK 06/01/2020 COLONOSCOPY W/BIOPSY SINGLE/MULTIPLE 02/22/2007 Diminutive polyp distal [id number] ECHO 01/08/2021 EGD 04/15/2020 HEART CATHETERIZATION 12/2018 with 2 stents IMPLANT MESH OPN HERNIA RPR/DEBRIDEMENT CLOSURE 03/06/2007 LAPAROSCOPY SURG RPR INITIAL INGUINAL HERNIA 03/06/2007 umbilical NM CARDIAC STRESS TEST 01/08/2021 PAST SURGICAL HISTORY OF Right 2016 incision and drainage right axillary abscess REPAIR ANORECTAL FISTULA W/PLUG 12/06/2016 REPAIR FIRST ABDOMINAL WALL HERNIA 03/06/2007 right STENT - CORONARY 2014 x3 AND x2 12/2018 TONSILLECTOMY PRIMARY/SECONDARY Tonsillectomy TOT/SUB ESOPHAGECTOMY W/THORACOT 08/09/2020 [place] esophagectomy, jejunostomy tube plac (more content not included)... Normal [facility] Discharge Instructionon 06-08 Discharge Instruction [facility] Medical Records Department [address] [place] [address] Instructions for Home/Discharge Instructions 06/30/24912 MR#: [id number] Acct: [id number] Name: JACOB LANDA Rep #: [id number] : 1955 69 From: Nikita Jackson MD PCP: Dr. Yaw Singh MD Status:REG [facility] Discharge Instructions Diet Discharge Diet: No restrictions Activity Lifting Restrictions: do not lift > 20 lbs with left arm for 14 days Additional Activity Instructions:: do not submerge incision for 14 days Dressing / Incision Call your doctor if your incision/area has: Sudden Increased Bleeding, Increased Pain/ Swelling, Increased Redness and Foul Smelling Discharge Call your doctor if you observe: Fever of 101 or Higher, Coldness, Increased Pain and Numbness or Tingling Remove Dressing in: 2 days Follow Up Care Test Results: Test results from this visit will be discussed in further detail at your follow-up appointment, if applicable. Discharge Plan Admission Attending Provider: Nikita Jackson Primary Care Provider: Yaw Singh Instructions Print Language: Congolese Discharge Orders/Prescriptions Prescriptions: New oxycodone 5 mg tablet 5 mg PO Q8H PRN (Reason: pain) 2 Days Qty: 6 0RF Continued atorvastatin 80 mg tablet 80 mg PO QHS Qty: 90 3RF ezetimibe 10 mg tablet 10 mg PO DAILY Qty: 90 3RF ferrous sulfate 325 mg (65 mg iron) tablet 325 mg PO DAILY Qty: 90 3RF acetaminophen 500 mg tablet 1,000 mg PO Q8 PRN (Reason: pain) Rx Instructions: Take Tylenol this way for 5 to 7 days postoperatively and then okay to go back and use as needed amoxicillin 500 mg tablet 2,000 mg PO ONCE Qty: 4 0RF Rx Instructions: Take one hour prior to dental cleanings/procedure metoprolol tartrate 25 mg Tablet 25 mg PO BID Qty: 0 0RF pantoprazole 40 mg Tablet,Delayed Release (Dr/Ec) 40 mg PO BID Qty: 0 0RF polyethylene glycol 3350 [Miralax] 17 gram/dose powder 17 g PO DAILY PRN (Reason: constipation) ondansetron 4 mg tablet,disintegrating 4 mg PO Q8H PRN PRN (Reason: nausea and vomiting) nitroglycerin 0.4 mg tablet, sublingual 0.4 mg sublingual PRN PRN (Reason: angina) aspirin 81 mg Tablet,Chewable 81 mg PO BID Qty: 0 0RF Rx Instructions: Take for 30 days postop and then okay to discontinue Referrals / Follow Up: Yaw Singh MD [Primary Care Provider] - Disposition Disposition (needs filled in before D/C Order can be placed): Home, Self Care 06/30/24 0916 Nikita Jackson MD CC: Dr. Yaw Singh MD Signed Normal [facility] Estradiol SerPl-mCncon 06-30 E2 [Mass/Vol] 25 pg/mL Normal <38 [facility] Comment on above: Order Comment: Speci men Type: BLOOD SPECIMENOrdering Facility: [facility] Address: [address] [place] [address] Result Comment: This test is not suitable for patients receiving treatment with the drug Fulvestrant (Faslodex). The drug causes an interference leading to falsely elevated estradiol results. Performed By: #### 2 243-4, 33703-4, 16170-3, 2842-3 ####[facility] LABCLIA [id number] [address] [place] FSH SerPl-aCncon 06-30-2024 Follitropin Qn 21.7 m[IU]/mL High 1.5-12.4 [facility] Comment on above: Order Comment: Speci men Type: BLOOD SPECIMENOrdering Facility: [facility] Address: [address] [place] [address] Performed By: #### 2 243-4, 02994-7, 87178-9, 2842-3 ####[facility] LABCLIA [id number] [address] [place] LH SerPl-aCncon 06-30-2024 Lutropin Qn 13.4 m[IU]/mL High 1.8-10.8 [facility] Comment on above: Order Comment: Speci men Type: BLOOD SPECIMENOrdering Facility: [facility] Address: [address] [place] [address] Performed By: #### 2 243-4, 85109-9, 03202-2, 2842-3 ####[facility] LABCLIA [id number] [address] [place] MR/POSTOP.ANEon 06-30-2024 MR/POSTOP.ANE [facility] Medical Records Department [address] [place] [address] Anesthesia Postop Eval I 06/30/24 0933 MR#: [id number] Acct: [id number] Name: JACOB LANDA Rep #: [id number] : 1955 69 From: Antwan Pettit CRNA PCP: Dr. Yaw Singh MD Status:REG SD Y Race: C Location: [place] [address] Anesthesia: Postop Eval I Current Vital Signs Temperature: 97.2 F Pulse Rate: 85 Blood Pressure: 102/75 Respiratory Rate: 20 Pulse Ox: 96 Oxygen Delivery Method: Room Air Assessment Airway patent: Yes Spontaneous unlabored respirations: Yes Mental status: Awake and Calm nausea: No Vomiting: No Anesthesia Complication: Yes Anesthesia Complication Comment:: right nares with epistaxis from npa Fluid Hydration Crystalloid volume administer (ml): 250 Total IV fluid infused: 250 Progress Note Anesthesia document: Postop Eval 1 completed: Yes 06/30/24934 Date [facility]an Pettit [facility] Signature: Date CC: Signed Normal [facility] MR/[id number] 06-30-2024 MR/POSTOPAN2 [facility] Medical Records Department [address] [facility] [place] [address] Anesthesia Postop Eval II 06/30/24 1015 MR#: [id number] Acct: [id number] Name: JACOB LANDA Rep #: [id number] : 1955 69 From: Tawny Covington PCP: Dr. Yaw Singh MD Status:REG SDC Y Race: C Location: [place] [address] Anesthesia Postop Eval I Sum Postop Eval Completion status Anesthesia document: Postop Eval 1 completed: Yes Anesthesia Postop Eval I Summary Anesthesia Postop Eval I Summary: Anesthesia Postop Eval I: Assessment Summary Airway patent Yes 06/30/24 09:34 MICROBIOLOGY QUALITY CONTROL TECHNICIAN.[email or web address] Spontaneous unlabored Yes 06/30/24 09:34 MICROBIOLOGY QUALITY CONTROL TECHNICIAN.PKEL respirations Mental status Awake,Calm 06/30/24 09:34 MICROBIOLOGY QUALITY CONTROL TECHNICIAN.PKEL nausea No 06/30/24 09:34 MICROBIOLOGY QUALITY CONTROL TECHNICIAN.PKEL Vomiting No 06/30/24 09:34 MICROBIOLOGY QUALITY CONTROL TECHNICIAN.PKEL Anesthesia Postop Eval I: Fluid Summary Crystalloid volume administer 250 06/30/24 09:34 MICROBIOLOGY QUALITY CONTROL TECHNICIAN.PKEL (ml) Colloids volume administered ( ml) Blood Product volume administered (ml) Total IV fluid infused 250 06/30/24 09:34 MICROBIOLOGY QUALITY CONTROL TECHNICIAN.PKEL Anesthesia Postop Eval I: Summary Notes Anesthesia Complication Yes 06/30/24 09:34 MICROBIOLOGY QUALITY CONTROL TECHNICIAN.PKEL Anesthesia Complication right nares with 06/30/24 09:34 MICROBIOLOGY QUALITY CONTROL TECHNICIAN.PKEL Comment: epistaxis from npa Post-operative progress note Anesthesia: Postop Eval II Evaluation Mental status: Awake Pain Level: 2 nausea: No Vomiting: No 06/30/24 1016 Date Tawny Santos Signature: Date CC: Signed Normal [facility] Operative Reporton Operative Report [facility] Medical Records Department [address] [place] [address] Operative Report 06/30/24917 MR#: [id number] Acct: [id number] Name: JACOB LANDA Rep #: [id number] : 1955 69 From: Nikita Jackson MD PCP: Dr. Yaw Singh MD Status:[facility] Location: [facility] Operative Report (Standard) Operative Information Date of Procedure: 06/30/24 Pre-Operative Diagnosis: ESRD Post-Operative Diagnosis: same Surgery/Procedure Performed: left brach-ceph fistula creation industrial welder: Yes Inspector Quality Assurance: Kristi Vázquez Tasks completed by project assistant: Opening, Closing, Opening closing, Hemostasis: Tie and Retracting Type of Anesthesia: Local MAC, Local and MAC RN Documented Start/Stop Times: Operation Date: 06/30/24 07:30 Case Time Into Pre-Op 06/30/24 06:48 Out of Pre-Op 06/30/24 07:33 Anesthesia Start 06/30/24 07:38 Into Room 06/30/24 07:38 Procedure Start 06/30/24 08:12 Procedure End 06/30/24 09:18 Anesthesia End 06/30/24 09:22 Out of Room 06/30/24 09:22 Into Recovery 06/30/24 09:25 Out of Recovery 06/30/24 09:46 Into Phase II Recovery 06/30/24 09:47 Out of Phase II 06/30/24 11:41 Procedure Start Time: 08:15 Procedure Stop Time: 09:15 Select all DRAINS/GRAFTS/IMPLANTS that apply: None Estimated Blood Loss: 9 Specimen collected: No Description of surgery: HPI: Patient is a 69-year-old male with end-stage renal disease currently on dialysis. He had vein mapping which revealed satisfactory left cephalic vein so he presents now for snoqualmie fistula creation. Description of procedure: Upon obtaining form consent and verification correct patient procedure and site the patient was taken to the operating where he was positioned prepped and draped in usual sterile fashion. Timeout was performed and moderate sedation administered by anesthesia. The cephalic vein was evaluated ultrasound and found to be patent with satisfactory caliber throughout the upper arm with close proximity to the brachial artery just distal to the antecubital crease. Skin overlying the vessels at this location was anesthetized with 1% lidocaine and transverse incision created 1 fingerbreadth distal to the antecubital crease. Bovie electrocautery used to dissect down and self-retaining retractors put in position. When the cephalic vein was visualized sharp dissection was used to dissect free proximal and distal with sidebranches ligated with silk ties and the vessel retracted laterally. Self-retaining retractors then moved deeper in the wound and further dissection carried down to the level the fascia. The fascia was then incised in cruciate configuration exposing the brachial artery and vein. Sharp dissection was used dissect free proximally and distally and a right angle used to place a vessel loop at these locations. The patient was then heparinized and allowed to circulate for 3 minutes. The cephalic vein was then ligated distally in the field and dilated up to 3 and half millimeters and flushed with heparinized saline. The brachial artery was occluded with Vesseloops and longitudinal arteriotomy created with an 11 blade extended with [place] scissors. The vein was then beveled to match the arteriotomy and anastomosis performed using a 6-0 Prolene running fashion. After completing suture line clamps removed and satisfactory stasis was noted. There is a palpable radial pulse and a palpable thrill in the fistula. Heparin was then reversed with protamine and the incision inspected for hemostasis. Incision was closed with 3-0 Vicryl followed by 4 Monocryl and Dermabond for the skin. At the inclusion the case patient was taken to the recovery room with anticipated discharge to home. Surgical Findings: see above Complications Complications: No 06/30/24 180 Cosigner Signature (if applicable): CC: Dr. Nikita Jackson MD; Dr. Yaw Singh MD Signed Normal [facility] Prolactin SerPl-mCncon 06-30 Prolactin [Mass/Vol] 72.8 ng/mL High 4.1-25.1 [facility] Comment on above: Order Comment: Speci men Type: BLOOD SPECIMENOrdering Facility: [facility] Address: [address] [place] [address] Result Comment: Prol actin test is performed using the [employer] Electrochemiluminescence Immunoassay method. Results obtained with different methods or kits cannot be used interchangeably. Performed By: #### 2 243-4, 72294-0, 67373-9, 2842-3 ####[facility] LABCLIA [id number] [place] [address] [place] TSH SerPl-aCncon 06-30-2024 TSH Qn 3.100 m[IU]/L Normal 0.270-4.200 [facility] Comment on above: Order Comment: Speci men Type: BLOOD SPECIMENOrdering Facility: [facility] Address: [address] [place] [address] Performed By: #### 2 986-8, 3016-3 ####[facility] LABCLIA [id number] [place] [id number] [place] Testost SerPl-mCncon 06-30- 025 Testosterone [Mass/Vol] 436 ng/dL Normal 193-824 [facility] Comment on above: Order Comment: Speci men Type: BLOOD SPECIMENOrdering Facility: [facility] Address: [facility] [place] [address] Result Comment: A te stosterone level in the 193-320 ng/dL range with associated clinical symptoms is considered low and may indicate hypogonadism (from [facility] 2010 [id number]:123-135). Results >320 ng/dL are considered normal. Performed By: #### 2 986-8, 3016-3 ####[facility] LABCLIA [id number] [place] [id number] [facility] John 06-20-2024 [facility] Telephone (TXCTGL) -- JACOB LANDA ([id number]) 1955 M Date Time Provider Department 06/20/24 [place]RIEN TXCTGL During your visit today, we recorded the following information about you: Hill Obrien LISW 06/20/2024 10:45 AM Signed Call placed to pt to complete the scheduled kidney transplant psychosocial evaluation. No answer. Left message requesting pt return my call. KATHERYN Dye LISW-S, [facility] Transplant Sueding Machine Tender Allergies As of Date: 06/20/2024 Noted Allergy Reaction SEASONAL ALLERGIES 07/12/2023 14 - Other: See Comments Comments: Sneezing, watery eyes, runny nose. Date Reviewed: 06/11/2024 Reviewed by: Vicente Addison RD - Fully Assessed Reason for Visit: Follow Up [171] Cmt: Psychosocial Eval Prescriptions as of 06/20/2024 - OLANZapine (ZYPREXA) 2.5 mg tablet Take 1 tablet by mouth daily at bedtime. - atorvastatin (LIPITOR) 80 mg tablet Take 1 tablet by mouth daily at bedtime. - metoprolol tartrate, short acting, (LOPRESSOR) 25 mg tablet Take 1 tablet by mouth two times a day. - fluticasone (FLONASE) 50 mcg/actuation nasal spray Use 1 Hutchins in each nostril once daily. - ferrous sulfate (SLOW FE) 137 mg (45 mg iron) TbER Take 1 tablet by mouth every other day. - ascorbic acid, vitamin C, (VITAMIN C) 500 mg tablet Take 1 tablet by mouth every other day. - ondansetron orally disintegrating (ZOFRAN ODT) 4 mg disintegrating tablet Take 1 tablet by mouth every 6 hours as needed for nausea/vomiting. - ezetimibe (ZETIA) 10 mg tablet Take 1 tablet by mouth once daily. - nitroglycerin sublingual (NITROQUICK) 0.4 mg SL tablet Dissolve 1 tablet under the tongue every 5 minutes as needed for chest pain. - enteric contrast (will be provided with radiology test) For CT ABD/PEL W IVCON Routine order Administer, As Directed One Time Only, via Oral, Rectal, both Oral and Rectal, Enteric Tube, Stoma or Indwelling Catheter, Enteric Contrast as designated per enteric contrast guidelines - pantoprazole DR (PROTONIX) 40 mg tablet Take 1 tablet by mouth two times a day. - acetaminophen (TYLENOL) 500 mg tablet Take 500 mg by mouth every 6 hours as needed. Meds Comments as of 03/06/2016: Krill Oil 350 Mg Antacid Will follow Dr. Light instructions regarding ASA Problem List As Of Date 06/20/2024 Noted Resolved Essential hypertension, benign [I10] Mixed hyperlipidemia [E78.2] Calculus of kidney [N20.0] 07/26/2015 Asthma [J45.909] 02/19/2006 Cough [R05.9] 02/19/2006 07/26/2015 INGUINAL HERNIA, UNILATERAL W/O GANGRENE/OBSTRU*01/21/2007 07/26/2015 UMBILICAL HERNIA W/O GANGRENE/OBSTRUCTION [K42.*01/21/2007 07/26/2015 Cellulitis and abscess of trunk [L03.319, L02.2*10/24/2007 07/26/2015 Boil of buttock [L02.32] 05/10/2009 07/26/2015 Epidermal inclusion cyst [L72.0] 05/10/2009 07/26/2015 Pyoderma, unspecified [L08.0] 05/10/2009 07/26/2015 Contact dermatitis and other eczema, due to uns*05/10/2009 07/26/2015 Other acne [L70.8] 05/10/2009 07/26/2015 GERD (gastroesophageal reflux disease) [K21.9] 07/12/2009 Personal history of colonic polyps [Z86.0100] 12/27/2009 Arthritis of right hand [M19.041] 08/04/2013 07/26/2015 Right carpal tunnel syndrome [G56.01] 08/04/2013 07/26/2015 Hematuria [R31.9] 07/20/2014 12/01/2016 BPH (benign prostatic hyperplasia) [N40.0] 07/20/2014 History of kidney stones [Z87.442] 07/20/2014 Aortic valve stenosis [I35.0] 07/26/2015 Situational depression [F43.21] 07/26/2015 Screening for colon cancer [Z12.11] 11/24/2016 Obesity, Class II, BMI 35-39.9 E66.9 [E66.812] 07/23/2017 07/19/2021 Chest pain [R07.9] 07/23/2017 07/23/2017 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] 07/23/2017 DDD (degenerative disc disease), lumbar [M51.36*11/04/2019 Malignant neoplasm of lower third of esophagus *04/27/2020 Obesity, Class I, BMI 30-34.9 [E66.811] 05/17/2020 07/19/2021 Iron deficiency anemia due to chronic blood los*05/25/2020 Iron malabsorption [K90.9] 05/25/2020 Esophageal adenocarcinoma (HCC) [C15.9] 08/09/2020 Coronary artery disease involving snoqualmie crisostomo* On tube feeding diet [Z78.9] 08/14/2020 01/13/2021 AK (actinic keratosis) [L57.0] 09/07/2020 Medicare annual wellness visit, subsequent [Z00*01/13/2021 Pleural effusion [J90] 03/11/2021 Advance directive discussed with patient [Z71.8*02/09/2022 Medication management [Z79.899] 02/09/2022 Prostate disorder [N42.9] 02/09/2022 Decreased sexual desire [F52.0] 02/09/2022 Rn Wound's nodules [L28.1] 03/30/2023 Primary insomnia [F51.01] 03/30/2023 Closed wedge compression fracture of T10 verteb*07/12/2023 Strain of thoracic paraspinal muscles excluding*07/30/2023 03/11/2024 Kyphosis (acquired) (postural) [M40.00] 07/30/2023 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 Normal [facility] CNCOon 06-13-2024 CNCO Letter Text Normal [facility] ACTIVATED PARTIAL THROMBOPLA STIN TIMEon 06-11-2024 aPTT Coag (PPP) [Time] 31.9 s [facility] ALGN RABBIT EPITHELIUM IGEon 06-11-2024 RABBIT EPITHELIUM CLASS Class 0 Normal Class 0 [facility] Comment on above: Order Comment: Speci men Type: BLOOD SPECIMENOrdering Facility: [facility] Address: [address] [place] [address] Performed By: #### R ABEPI ####[facility] LABCLIA [id number] [place] [address] [place] RABBIT EPITHELIUM IGE <0.35 Normal <0.35 [facility] Comment on above: Order Comment: Speci men Type: BLOOD SPECIMENOrdering Facility: [facility] Address: [address] [place] [address] Performed By: #### R ABEPI ####[facility] LABCLIA [id number] [address] BLOOD TB SCREENon 06-11-2024 M. tuberculosis tuberculin stim IFN-g Ql (Bld) Negative Normal [facility] Comment on above: Order Comment: Speci men Type: BLOOD SPECIMENOrdering Facility: [facility] Address: [address] [place] [address] Performed By: #### I NFTBP ####[facility] LABIA [id number] [place] [address] [place] MITOGEN MINUS NIL >9.98 Normal >=0.50 [facility] Comment on above: Order Comment: Speci men Type: BLOOD SPECIMENOrdering Facility: [facility] Address: [address] [place] [address] Performed By: #### I NFTBP ####[facility] [id number] [address] TB GAMMA INTERPRETATION Infection with M. tuberculosis complex is unlikely. If latent tuberculosis infection is highly suspected, a negative result does not rule out the infection. Specimens from immunocompromised patients and those <5 years of age may show false negative results. In case of a contact investigation, please repeat 8-12 weeks after a known exposure. Normal [facility] Comment on above: Order Comment: Speci men Type: BLOOD SPECIMENOrdering Facility: [facility] Address: [address] [place] [address] Performed By: #### I NFTBP ####[facility] LABIA [id number] [address] TB NIL 0.02 IU/mL Normal <=8.00 [facility] Comment on above: Order Comment: Speci men Type: BLOOD SPECIMENOrdering Facility: [facility] Address: [address] [place] [address] Performed By: #### I NFTBP ####[facility] [facility] LABIA [id number] [address] TB1 AG MINUS NIL 0.00 IU/mL Normal <0.35 [facility] Comment on above: Order Comment: Speci men Type: BLOOD SPECIMENOrdering Facility: [facility] Address: [address] [place] [address] Performed By: #### I NFTBP ####[facility] LABCLIA [id number] [address] TB2 AG MINUS NIL 0.00 IU/mL Normal <0.35 [facility] Comment on above: Order Comment: Speci men Type: BLOOD SPECIMENOrdering Facility: [facility] Address: [address] [place] [address] Performed By: #### I NFTBP ####[facility] LABIA [id number] [address] CBC panel Auto (Bld)on 06-11 Erythrocyte distribution width (RBC) [Ratio] 15.6 % High 11.5 - 15.0 % [facility] Hematocrit (Bld) [Volume fraction] 35.7 % Low 39.0 - 51.0 % [facility] Hemoglobin (Bld) [Mass/Vol] 11.3 g/dL Low 13.0 - 17.0 g/dL [facility] Interpretation and review of laboratory results Abnormal [facility] MCH (RBC) [Entitic mass] 29.9 pg 26.0 - 34.0 pg [facility] MCHC (RBC) [Mass/Vol] 31.7 g/dL 30.5 - 36.0 g/dL [facility] MCV (RBC) [Entitic vol] 94.4 fL 80.0 - 100.0 fL [facility] Nucleated RBC (Bld) [#/Vol] NINF [facility] Platelet mean volume (Bld) [Entitic vol] 10 fL 9.0 - 12.7 fL [facility] Platelets (Bld) [#/Vol] 228 10*3/uL [facility] RBC (Bld) [#/Vol] 3.78 10*6/uL Low 4.20 - 6.0 0 m/uL [facility] WBC (Bld) [#/Vol] 9.67 10*3/uL [facility] Erythrocyte distribution width (RBC) [Ratio] 15.6 % High 11.5-15.0 [facility] Comment on above: Order Comment: Speci men Type: BLOOD SPECIMENOrdering Facility: [facility] Address: [address] [place] [address] Performed By: #### 5 8410-2 ####[facility] LABIA [id number] [place] [address] [place] Hematocrit (Bld) [Volume fraction] 35.7 % Low 39.0-51.0 [facility] Comment on above: Order Comment: Speci men Type: BLOOD SPECIMENOrdering Facility: [facility] Address: [address] [place] [address] Performed By: #### 5 8410-2 ####[facility] LABIA [id number] [place] [address] [place] Hemoglobin (Bld) [Mass/Vol] 11.3 g/dL Low 13.0-17.0 [facility] Comment on above: Order Comment: Speci men Type: BLOOD SPECIMENOrdering Facility: [facility] Address: [address] [place] [address] Performed By: #### 5 8410-2 ####[facility] LABIA [id number] [place] [address] [place] MCH (RBC) [Entitic mass] 29.9 pg Normal 26.0-34.0 [facility] Comment on above: Order Comment: Speci men Type: BLOOD SPECIMENOrdering Facility: [facility] Address: [address] [place] [address] Performed By: #### 5 8410-2 ####[facility] LABIA [id number] [place] [address] [place] MCHC (RBC) [Mass/Vol] 31.7 g/dL Normal 30.5-36.0 [facility] Comment on above: Order Comment: Speci men Type: BLOOD SPECIMENOrdering Facility: [facility] Address: [address] [place] [address] Performed By: #### 5 8410-2 ####[facility] LABCLIA [id number] [facility] [place] [address] [place] MCV (RBC) [Entitic vol] 94.4 fL Normal 80.0-100.0 [facility] Comment on above: Order Comment: Speci men Type: BLOOD SPECIMENOrdering Facility: [facility] Address: [address] [place] [address] Performed By: #### 5 8410-2 ####[facility] LABIA [id number] [place] [address] [place] Nucleated RBC (Bld) [#/Vol] 10*3/uL Normal <0.01 [facility] Comment on above: Order Comment: Speci men Type: BLOOD SPECIMENOrdering Facility: [facility] Address: [address] [place] [address] Performed By: #### 5 8410-2 ####[facility] LABIA [id number] [place] [address] [place] Platelet mean volume (Bld) [Entitic vol] 10.0 fL Normal 9.0-12.7 [facility] Comment on above: Order Comment: Speci men Type: BLOOD SPECIMENOrdering Facility: [facility] Address: [address] [place] [address] Performed By: #### 5 8410-2 ####[facility] LABCLIA [id number] [place] [address] [place] Platelets (Bld) [#/Vol] 228 10*3/uL Normal 150-400 [facility] Comment on above: Order Comment: Speci men Type: BLOOD SPECIMENOrdering Facility: [facility] Address: [address] [place] [address] Performed By: #### 5 8410-2 ####[facility] LABCLIA [id number] [place] [address] [place] RBC (Bld) [#/Vol] 3.78 10*6/uL Low 4.20-6.00 [facility] Comment on above: Order Comment: Speci men Type: BLOOD SPECIMENOrdering Facility: [facility] Address: [address] [place] [address] Performed By: #### 5 8410-2 ####[facility] LABIA [id number] [place] [address] [place] WBC (Bld) [#/Vol] 9.67 10*3/uL Normal 3.70-11.00 [facility] Comment on above: Order Comment: Speci men Type: BLOOD SPECIMENOrdering Facility: [facility] Address: [address] [place] [address] Performed By: #### 5 8410-2 ####[facility] LABIA [id number] [place] [address] [place] CMV IgG Qnon 06-11-2024 CMV IGG QUAL Positive Abnormal Negative [facility] Comment on above: Order Comment: Speci men Type: BLOOD SPECIMENOrdering Facility: [facility] Address: [address] [place] [address] Result Comment: The result suggests recent or past infection with Cytomegalovirus (CMV). Positive result may also be seen due to presence of passively-transferred antibodies. Please correlate with patient's history. Performed By: #### M EASLG, 7852-7, VZVG2, 7885-7 ####[facility] LABCLIA [id number] [place] [address] [place] CMV IgG SerPl-aCncon 025 CMV IgG Qn >10.00 Normal [facility] Comment on above: Order Comment: Speci men Type: BLOOD SPECIMENOrdering Facility: [facility] Address: [address] [place] [address] Result Comment: The magnitude of the measured result is not indicative of the amount of antibody present. U/mL values are interpreted as follows: Negative <0.6 Equivocal 0.6 to <0.70 Positive >=0.70 Performed By: #### M EASLG, 7852-7, VZV, 7885-7 ####[facility] LABCLIA [id number] CLEMENTBeba GUTIERREZ [address] CNOVon 06-11-2024 CNOV Office Visit (TXCTGL ) -- JACOB LANDA ([id number]) 1955 M Date Time Provider Department 06/11/24 3:30 PM KIDNEY TXP COORDINATORS TXCTGL During your visit today, we recorded the following information about you: Ezekiel Shah, RN 06/11/2024 3:34 PM Addendum As part of your transplant evaluation you are required to complete the following additional items. Please be aware that your evaluation will not be considered complete until all testing has been submitted. YOU WILL NOT BE LISTED ON THE TRANSPLANT LIST until these results have been received by our office, reviewed by the transplant committee and approved for transplant. You will be contacted with the decision of the transplant committee at a future date. The following will be scheduled for you at a [facility] facility: CARDIAC: EKG-Today Cardiac Stress Test-Will schedule after discussion with your fiber optic assembly worker CANCER SCREENING: PSA with Evaluation-with labs today ADDITIONAL CONSULTS Cardiology-Will need clearance from your fiber optic assembly worker Oncology-Will need clearance from your oncologist Imaging Studies: Nothing further Miscellaneous Items: Labs-Today Outside test results should be faxed to [phone]. Please review the kidney transplant educational materials on line at [email or web address] Sign-in: Kidney To check on your status of your evaluation, please contact your coordinator, Wendy Christian RN [phone]. Ezekiel Shah RN Kidney/Pancreas Pre-Hang Gliding Instructor [facility] Referring Provider: MARIA VICTORIA SCOTT [[id number]] Allergies As of Date: 06/11/2024 Noted Allergy Reaction SEASONAL ALLERGIES 07/12/2023 14 - Other: See Comments Comments: Sneezing, watery eyes, runny nose. Date Reviewed: 06/11/2024 Reviewed by: Vicente Addison RD - Fully Assessed Primary Visit Diagnosis:Pre-transplant evaluation for kidney transplant [Z01.818] Prescriptions as of 06/11/2024 - OLANZapine (ZYPREXA) 2.5 mg tablet Take 1 tablet by mouth daily at bedtime. - atorvastatin (LIPITOR) 80 mg tablet Take 1 tablet by mouth daily at bedtime. - metoprolol tartrate, short acting, (LOPRESSOR) 25 mg tablet Take 1 tablet by mouth two times a day. - fluticasone (FLONASE) 50 mcg/actuation nasal spray Use 1 Hutchins in each nostril once daily. - ferrous sulfate (SLOW FE) 137 mg (45 mg iron) TbER Take 1 tablet by mouth every other day. - ascorbic acid, vitamin C, (VITAMIN C) 500 mg tablet Take 1 tablet by mouth every other day. - ondansetron orally disintegrating (ZOFRAN ODT) 4 mg disintegrating tablet Take 1 tablet by mouth every 6 hours as needed for nausea/vomiting. - ezetimibe (ZETIA) 10 mg tablet Take 1 tablet by mouth once daily. - nitroglycerin sublingual (NITROQUICK) 0.4 mg SL tablet Dissolve 1 tablet under the tongue every 5 minutes as needed for chest pain. - enteric contrast (will be provided with radiology test) For CT ABD/PEL W IVCON Routine order Administer, As Directed One Time Only, via Oral, Rectal, both Oral and Rectal, Enteric Tube, Stoma or Indwelling Catheter, Enteric Contrast as designated per enteric contrast guidelines - pantoprazole DR (PROTONIX) 40 mg tablet Take 1 tablet by mouth two times a day. - acetaminophen (TYLENOL) 500 mg tablet Take 500 mg by mouth every 6 hours as needed. Meds Comments as of 03/06/2016: Krill Oil 350 Mg Antacid Will follow Dr. Light instructions regarding ASA Problem List As Of Date 06/11/2024 Noted Resolved Essential hypertension, benign [I10] Mixed hyperlipidemia [E78.2] Calculus of kidney [N20.0] 07/26/2015 Asthma [J45.909] 02/19/2006 Cough [R05.9] 02/19/2006 07/26/2015 INGUINAL HERNIA, UNILATERAL W/O GANGRENE/OBSTRU*01/21/2007 07/26/2015 UMBILICAL HERNIA W/O GANGRENE/OBSTRUCTION [K42.*01/21/2007 07/26/2015 Cellulitis and abscess of trunk [L03.319, L02.2*10/24/2007 07/26/2015 Boil of buttock [L02.32] 05/10/2009 07/26/2015 Epidermal inclusion cyst [L72.0] 05/10/2009 07/26/2015 Pyoderma, unspecified [L08.0] 05/10/2009 07/26/2015 Contact dermatitis and other eczema, due to uns*05/10/2009 07/26/2015 Other acne [L70.8] 05/10/2009 07/26/2015 GERD (gastroesophageal reflux disease) [K21.9] 07/12/2009 Personal history of colonic polyps [Z86.0100] 12/27/2009 Arthritis of right hand [M19.041] 08/04/2013 07/26/2015 Right carpal tunnel syndrome [G56.01] 08/04/2013 07/26/2015 Hematuria [R31.9] 07/20/2014 12/01/2016 BPH (benign prostatic hyperplasia) [N40.0] 07/20/2014 History of kidney stones [Z87.442] 07/20/2014 Aortic valve stenosis [I35.0] 07/26/2015 Situational depression [F43.21] 07/26/2015 Screening for colon cancer [Z12.11] 11/24/2016 Obesity, Class II, BMI 35-39.9 E66.9 [E66.812] 07/23/2017 07/19/2021 Chest pain [R07.9] 07/23/2017 07/23/2017 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] 07/23/2017 DDD (degenerative disc disease), lumbar [M51.36*11/04/2019 Malignant neopla (more content not included)... Normal [facility] CNOV Office Visit (TXCTGL ) -- JACOB LANDA ([id number]) 1955 M Date Time Provider Department 06/11/24 3:00 PM NEPHROLOGY [facility] TXCTGL During your visit today, we recorded the following information about you: Temperature Pulse Blood pressure Weight 98.5 degrees 93/minute 128/76 73.9 kg Height 1.778 m Grabiel Ruff MD 06/13/2024 11:56 AM Signed [facility] Transplant Evaluation CC: Consultation for Kidney transplant evaluation. Referred by: Maria Victoria Scott [address] [place], [place] [address] [facility] [address] [address] I will communicate with the referring provider by letter and/or shared electronic medical record. 69-year-old male here for pretransplant evaluation. End-stage renal disease apparently due to hypertension, has been on renal replacement therapy since March of this year. His past medical history is significant for significant coronary disease and valvular heart disease he is status post CABG in 2002, recurrent coronary disease status post PCI in 2018, status post bioprosthetic TAVR in 2018. Remote history of esophageal carcinoma that required an esophagectomy in 2020 follows closely with hematology oncology. Remote history of kidney stones. Doing well denies fever chills nausea vomiting dizziness lightheadedness. No potential living donors. Here with Medications reviewed HPI: This is a 69 year old gentleman who presents for kidney transplant evaluation related to ESRD secondary to a history of HTN. Patient has an additional PMHX of CAD s/p CABG x 4 vessels 2003 Non-stemi with 2 stents at [facility] in 2019 HLD aortic valve stenosis s/p TAVR with bioprosthetic valve 02/2019 Asthma GERD esophageal CA-Dr. 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 concurrent chemotherapy and radiation with carboplatin and paclitaxel 05/2020-06/2020 [place] [facility] esophagectomy 08/09/2020 Adjuvant nivolumab DDD BPH kidney stones left hip replacement 02/15/2024. Hematology note mentions kidney biopsy in October of 2023 with acute tubular necrosis and acute tubulointerstitial nephritis-results not in CE. Pt initiated on hemodialysis 03/28/2024 through a TDC-plan for aVF on Sunday06/16/2024-[facility] Patient presents ambulatory with cane. Does patient work?: No Smoking Status: Never smoker UTI: No Kidney stones: Yes-Passed on own Chronic anti-coagulation: No Midodrine: No Abdominal surgeries: Yes Hernia repair x 2 (inguinal and abdominal wall Cardiovascular Disease?: Yes Peripheral Arterial Disease (TIA non-embolic, CVA non-embolic, amputation, abnormal PVRs, decreased pulses, etc): No Stroke: No Claudication: No Carotid Artery Stenosis: No DM: No Diabetic ulcers or chronic wounds: No Prior transplant: No CKD: Yes: Cause of CKD: HTN Hemodialysis, Start date: 03/28/2024 Living Donors: Yes Residual UO: 500 ml-1000 ml daily Hypercoagulable (hx of DVT/PE, miscarriages, prior use of anticoagulation, etc): Yes-eliquis previously for DVT related to TDC-discontinued for anemia Malignancy (including skin cancer): Yes-Esophageal CA Last hospitalization: 02/17/2024-hip replacement PAST MEDICAL HISTORY Diagnosis Date Advance directive discussed with patient 02/09/2022 Discussed 02/2022, packets provided AK (actinic keratosis) 09/07/2020 One on the right forearm dorsal, three on the left forearm dorsal and one left side of face hear hair line about eye level. Tx cryo 09/2020 Aortic valve stenosis 07/26/2015 Ascending aorta dilation (HCC) 09/21/2023 09/21/2023: 4.1cm Asthma BPH (benign prostatic hyperplasia) 07/20/2014 Carpal tunnel syndrome of right wrist CKD (chronic kidney disease) stage 4, GFR 15-29 ml/min (HCC) 01/03/2024 On dialysis and seeing Dr. Greenberg. Closed wedge compression fracture of T10 vertebra (HCC) 07/12/2023 Coronary artery disease involving [place] coronary artery without angina pectoris Seeing Dr. Noland DDD (degenerative disc disease), lumbar 11/04/2019 Elevated blood sugar 03/11/2024 Esophageal adenocarcinoma (HCC) 08/09/2020 Essential hypertension, benign GERD (gastroesophageal reflux disease) 07/12/2009 History of kidney stones 07/20/2014 Iron deficiency anemia due to chronic blood loss 05/25/2020 Iron malabsorption 05/25/2020 Kidney stone Kyphosis (acquired) (postural) 07/30/[address] 03/11/2024 DPA: Lacho (step daughter) Malignant 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) 04/15/2020 Medicare annual wellness visit, subsequent 01/13/2021 Medical B eligibilty date 03/09/19 Date of last exam 01/13/2021 Mixed hyperlipidemia MRSA (methicillin resistant Staphylococcus aureus) 12/01/2016 treated with course of Linezolid beginning 10/29/16 Nonrheumatic aortic valve disorder On tube feeding diet 08/14/2020 History: 65 year old m (more content not included)... Normal [facility] CNOV Office Visit (TXCTGL ) -- JACOB LANDA ([id number]) 1955 M Date Time Provider Department 06/11/24 2:30 PM UROLOGY [place] [facility] TXCT[facility] During your visit today, we recorded the following information about you: Temperature Pulse Blood pressure Weight 98.5 degrees 93/minute 128/76 73.9 kg Height 1.778 m Lacho Pa PA-C 06/13/2024 4:50 PM Signed [facility] Transplant Evaluation CC: Consultation for Kidney transplant evaluation. Referred by: Maria Victoria Scott [id number] [address] I will communicate with the referring provider by letter and/or shared electronic medical record. HPI: This is a 69 year old gentleman who presents for kidney transplant evaluation related to ESRD secondary to a history of HTN. Patient has an additional PMHX of CAD s/p CABG x 4 vessels 2003 Non-stemi with 2 stents at [facility] in 2019 HLD aortic valve stenosis s/p TAVR with bioprosthetic valve 02/2019 Asthma GERD esophageal CA-Dr. 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 concurrent chemotherapy and radiation with carboplatin and paclitaxel 05/2020-06/2020 [place] esophagectomy 08/09/2020 Adjuvant nivolumab DDD BPH kidney stones left hip replacement 02/15/2024. Hematology note mentions kidney biopsy in October of 2023 with acute tubular necrosis and acute tubulointerstitial nephritis-results not in CE. Pt initiated on hemodialysis 03/28/2024 through a TDC-plan for aVF on Sunday06/16/2024-[facility] Patient presents ambulatory with cane. Does patient work?: No Smoking Status: Never smoker UTI: No Kidney stones: Yes-Passed on own Chronic anti-coagulation: No Midodrine: No Abdominal surgeries: Yes Hernia repair x 2 (inguinal and abdominal wall Cardiovascular Disease?: Yes Peripheral Arterial Disease (TIA non-embolic, CVA non-embolic, amputation, abnormal PVRs, decreased pulses, etc): No Stroke: No Claudication: No Carotid Artery Stenosis: No DM: No Diabetic ulcers or chronic wounds: No Prior transplant: No CKD: Yes: Cause of CKD: HTN Hemodialysis, Start date: 03/28/2024 Living Donors: Yes Residual UO: 500 ml-1000 ml daily Hypercoagulable (hx of DVT/PE, miscarriages, prior use of anticoagulation, etc): Yes-eliquis previously for DVT related to TDC-discontinued for anemia Malignancy (including skin cancer): Yes-Esophageal CA Last hospitalization: 02/17/2024-hip replacement BP 128/76 Pulse 93 Temp 36.9 ?C (98.5 ?F) (Temporal) Ht 177.8 cm (5' 10") Wt 73.9 kg (162 lb 14.7 oz) SpO2 99% BMI 23.38 kg/m? PAST MEDICAL HISTORY Diagnosis Date Advance directive discussed with patient 02/09/2022 Discussed 02/2022, packets provided AK (actinic keratosis) 09/07/2020 One on the right forearm dorsal, three on the left forearm dorsal and one left side of face hear hair line about eye level. Tx cryo 09/2020 Aortic valve stenosis 07/26/2015 Ascending aorta dilation ([facility]) 09/21/2023 09/21/2023: 4.1cm Asthma BPH (benign prostatic hyperplasia) 07/20/2014 Carpal tunnel syndrome of right wrist CKD (chronic kidney disease) stage 4, GFR 15-29 ml/min ([facility]) 01/03/2024 On dialysis and seeing Dr. Greenberg. Closed wedge compression fracture of T10 vertebra ([facility]) 07/12/2023 Coronary artery disease involving [place] coronary artery without angina pectoris Seeing Dr. Noland DDD (degenerative disc disease), lumbar 11/04/2019 Elevated blood sugar 03/11/2024 Esophageal adenocarcinoma ([facility]) 08/09/2020 Essential hypertension, benign GERD (gastroesophageal reflux disease) 07/12/2009 History of kidney stones 07/20/2014 Iron deficiency anemia due to chronic blood loss 05/25/2020 Iron malabsorption 05/25/2020 Kidney stone Kyphosis (acquired) (postural) 07/30/[address] 03/11/2024 DPA: Lacho (step daughter) Malignant neoplasm of lower third of esophagus ([facility]) 04/15/2020 Medicare annual wellness visit, subsequent 01/13/2021 Medical B eligibilty date 03/09/19 Date of last exam 01/13/2021 Mixed hyperlipidemia MRSA (methicillin resistant Staphylococcus aureus) 12/01/2016 treated with course of Linezolid beginning 10/29/16 Nonrheumatic aortic valve disorder On tube feeding diet 08/14/2020 History: 65 year old male s/p [place] esophagectomy, Pyloromyotomy, Jejunostomy tube placement for esophageal adenocarcinoma -Diet: Isosource 1.5 to 50 cc hour with 100 cc water flushes 8 times per day and Bene protein 3 times per day Removed 11/17/2020 Personal history of colonic polyps 12/27/2009 Rn Wound's nodules 03/30/2023 Will try pamelor Pleural effusion 03/11/2021 Stable in f/u studies. Pressure ulcer of unspecified buttock, stage 2 (HCC) 01/03/2024 Bilaterally. 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 4 07/23/2017 S/P TAVR (transc (more content not included)... Normal [facility] CNOV Office Visit (TXCTGL ) -- JACOB LANDA ([id number]) 1955 M Date Time Provider Department 06/11/24 2:00 PM KIDNEY TXP COORDINATORS TXCTGL During your visit today, we recorded the following information about you: Referring Provider: MARIA VICTORIA SCOTT [[id number]] Allergies As of Date: 06/11/2024 Noted Allergy Reaction SEASONAL ALLERGIES 07/12/2023 14 - Other: See Comments Comments: Sneezing, watery eyes, runny nose. Date Reviewed: 06/11/2024 Reviewed by: Vicente Addison RD - Fully Assessed Primary Visit Diagnosis:Pre-transplant evaluation for kidney transplant [Z01.818] Prescriptions as of 06/11/2024 - OLANZapine (ZYPREXA) 2.5 mg tablet Take 1 tablet by mouth daily at bedtime. - atorvastatin (LIPITOR) 80 mg tablet Take 1 tablet by mouth daily at bedtime. - metoprolol tartrate, short acting, (LOPRESSOR) 25 mg tablet Take 1 tablet by mouth two times a day. - fluticasone (FLONASE) 50 mcg/actuation nasal spray Use 1 Hutchins in each nostril once daily. - ferrous sulfate (SLOW FE) 137 mg (45 mg iron) TbER Take 1 tablet by mouth every other day. - ascorbic acid, vitamin C, (VITAMIN C) 500 mg tablet Take 1 tablet by mouth every other day. - ondansetron orally disintegrating (ZOFRAN ODT) 4 mg disintegrating tablet Take 1 tablet by mouth every 6 hours as needed for nausea/vomiting. - ezetimibe (ZETIA) 10 mg tablet Take 1 tablet by mouth once daily. - nitroglycerin sublingual (NITROQUICK) 0.4 mg SL tablet Dissolve 1 tablet under the tongue every 5 minutes as needed for chest pain. - enteric contrast (will be provided with radiology test) For CT ABD/PEL W IVCON Routine order Administer, As Directed One Time Only, via Oral, Rectal, both Oral and Rectal, Enteric Tube, Stoma or Indwelling Catheter, Enteric Contrast as designated per enteric contrast guidelines - pantoprazole DR (PROTONIX) 40 mg tablet Take 1 tablet by mouth two times a day. - acetaminophen (TYLENOL) 500 mg tablet Take 500 mg by mouth every 6 hours as needed. Meds Comments as of 03/06/2016: Krill Oil 350 Mg Antacid Will follow Dr. Light instructions regarding ASA Problem List As Of Date 06/11/2024 Noted Resolved Essential hypertension, benign [I10] Mixed hyperlipidemia [E78.2] Calculus of kidney [N20.0] 07/26/2015 Asthma [J45.909] 02/19/2006 Cough [R05.9] 02/19/2006 07/26/2015 INGUINAL HERNIA, UNILATERAL W/O GANGRENE/OBSTRU*01/21/2007 07/26/2015 UMBILICAL HERNIA W/O GANGRENE/OBSTRUCTION [K42.*01/21/2007 07/26/2015 Cellulitis and abscess of trunk [L03.319, L02.2*10/24/2007 07/26/2015 Boil of buttock [L02.32] 05/10/2009 07/26/2015 Epidermal inclusion cyst [L72.0] 05/10/2009 07/26/2015 Pyoderma, unspecified [L08.0] 05/10/2009 07/26/2015 Contact dermatitis and other eczema, due to uns*05/10/2009 07/26/2015 Other acne [L70.8] 05/10/2009 07/26/2015 GERD (gastroesophageal reflux disease) [K21.9] 07/12/2009 Personal history of colonic polyps [Z86.0100] 12/27/2009 Arthritis of right hand [M19.041] 08/04/2013 07/26/2015 Right carpal tunnel syndrome [G56.01] 08/04/2013 07/26/2015 Hematuria [R31.9] 07/20/2014 12/01/2016 BPH (benign prostatic hyperplasia) [N40.0] 07/20/2014 History of kidney stones [Z87.442] 07/20/2014 Aortic valve stenosis [I35.0] 07/26/2015 Situational depression [F43.21] 07/26/2015 Screening for colon cancer [Z12.11] 11/24/2016 Obesity, Class II, BMI 35-39.9 E66.9 [E66.812] 07/23/2017 07/19/2021 Chest pain [R07.9] 07/23/2017 07/23/2017 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] 07/23/2017 DDD (degenerative disc disease), lumbar [M51.36*11/04/2019 Malignant neoplasm of lower third of esophagus *04/27/2020 Obesity, Class I, BMI 30-34.9 [E66.811] 05/17/2020 07/19/2021 Iron deficiency anemia due to chronic blood los*05/25/2020 Iron malabsorption [K90.9] 05/25/2020 Esophageal adenocarcinoma (HCC) [C15.9] 08/09/2020 Coronary artery disease involving [place]* On tube feeding diet [Z78.9] 08/14/2020 01/13/2021 AK (actinic keratosis) [L57.0] 09/07/2020 Medicare annual wellness visit, subsequent [Z00*01/13/2021 Pleural effusion [J90] 03/11/2021 Advance directive discussed with patient [Z71.8*02/09/2022 Medication management [Z79.899] 02/09/2022 Prostate disorder [N42.9] 02/09/2022 Decreased sexual desire [F52.0] 02/09/2022 Rn Wound's nodules [L28.1] 03/30/2023 Primary insomnia [F51.01] 03/30/2023 Closed wedge compression fracture of T10 verteb*07/12/2023 Strain of thoracic paraspinal muscles excluding*07/30/2023 03/11/2024 Kyphosis (acquired) (postural) [M40.00] 07/30/2023 Ascending aorta dilation (HCC) [I77.810] 09/21/2023 CKD (chronic kidney disease) stage 4, GFR 15-29*01/03/2024 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 [T85.868A] 01/03/2024 Pressure ulcer of unspecified buttock, stage 2 *01/03/2024 03/11/[address] [Z78.9] 03/11/2024 Elevated blood sugar [R73.9] 03/11/2024 S/P TAVR (transcatheter a (more content not included)... Normal [facility] CNOV Office Visit (TXCTGL ) -- JACOB LANDA ([id number]) 1955 M Date Time Provider Department 06/11/24 8:00 AM PRE TX GROUP EDUCATION TXCTGL During your visit today, we recorded the following information about you: Rober Iglesias, MICHELE 06/11/2024 12:07 PM Signed PRE-TRANSPLANT PATIENT EDUCATION NOTE Type of Transplant: Kidney Informed Consent for Evaluation signed: Yes Multiple Listing Form signed: Yes READINESS TO LEARN: Cognitive Ability: Alert and oriented Motivation to Learn: Interested Family Support: High - Very involved in pt care Instruction Provided to: Patient and Family member Patient Learns Best by: Multiple Methods Factors Affecting Learning: None Physical Limitations Affecting Learning: None LEARNING RESPONSE: Diagnosis: HTN Education Topics/Teaching Points: -Discussed living donor evaluation and approval process. -Discussed the evaluation and listing process. -Discussed the different types of donors (KDPI scoring, DCD, High Risk). -Explained EPTS scoring and how it is calculated. -Explained the surgical procedure and potential complications, surgeons, hospital stay at the time of transplant. -Explained lifetime immunosuppression therapy and frequency of blood draws/labs post-op and post-op course of treatment. -Reviewed National and [facility] outcomes from [facility]; a copy of the program summary was given to the patient. -Explained that if the transplant is not performed at a Medicare-approved transplant center it could affect the ability to have immunosuppressive medications paid under Medicare Part B. Supplemental Material: -Pre-Transplant Patient Education Folder -UNOS: Questions AND Answers for Transplant Candidates about Multiple Listing and Waiting Time Transfer -UNOS: Questions AND Answers for Transplant Candidates about Kidney Allocation Policy -Directions to access [facility]'s data through the SR[facility] website. -Informed Consent for Transplant Program Participation patient education packet -National Kidney Registry pamphlet -Covid-19 Vaccination for Transplant Candidates Method of Instruction: Group class instruction Written instruction/Handouts Verbal instruction Patient/Family Response: Patient asked appropriate questions, which were answered satisfactorily. Follow-Up Plan: Complete - No need for follow-up Referral/Recommendation: None Rober Iglesias RN Pre-Hang Gliding Instructor Referring Provider: MAULIK ARANDA [[id number]] Allergies As of Date: 06/11/2024 Noted Allergy Reaction SEASONAL ALLERGIES 07/12/2023 14 - Other: See Comments Comments: Sneezing, watery eyes, runny nose. Date Reviewed: 06/11/2024 Reviewed by: Vicente Addison RD - Fully Assessed Reason for Visit: Patient Education [91] Primary Visit Diagnosis:Pre-transplant evaluation for end stage renal disease [Z01.818] Prescriptions as of 06/11/2024 - OLANZapine (ZYPREXA) 2.5 mg tablet Take 1 tablet by mouth daily at bedtime. - atorvastatin (LIPITOR) 80 mg tablet Take 1 tablet by mouth daily at bedtime. - metoprolol tartrate, short acting, (LOPRESSOR) 25 mg tablet Take 1 tablet by mouth two times a day. - fluticasone (FLONASE) 50 mcg/actuation nasal spray Use 1 Hutchins in each nostril once daily. - ferrous sulfate (SLOW FE) 137 mg (45 mg iron) TbER Take 1 tablet by mouth every other day. - ascorbic acid, vitamin C, (VITAMIN C) 500 mg tablet Take 1 tablet by mouth every other day. - ondansetron orally disintegrating (ZOFRAN ODT) 4 mg disintegrating tablet Take 1 tablet by mouth every 6 hours as needed for nausea/vomiting. - ezetimibe (ZETIA) 10 mg tablet Take 1 tablet by mouth once daily. - nitroglycerin sublingual (NITROQUICK) 0.4 mg SL tablet Dissolve 1 tablet under the tongue every 5 minutes as needed for chest pain. - enteric contrast (will be provided with radiology test) For CT ABD/PEL W IVCON Routine order Administer, As Directed One Time Only, via Oral, Rectal, both Oral and Rectal, Enteric Tube, Stoma or Indwelling Catheter, Enteric Contrast as designated per enteric contrast guidelines - pantoprazole DR (PROTONIX) 40 mg tablet Take 1 tablet by mouth two times a day. - acetaminophen (TYLENOL) 500 mg tablet Take 500 mg by mouth every 6 hours as needed. Meds Comments as of 03/06/2016: Krill Oil 350 Mg Antacid Will follow Dr. Light instructions regarding ASA Problem List As Of Date 06/11/2024 Noted Resolved Essential hypertension, benign [I10] Mixed hyperlipidemia [E78.2] Calculus of kidney [N20.0] 07/26/2015 Asthma [J45.909] 02/19/2006 Cough [R05.9] 02/19/2006 07/26/2015 INGUINAL HERNIA, UNILATERAL W/O GANGRENE/OBSTRU*01/21/2007 07/26/2015 UMBILICAL HERNIA W/O GANGRENE/OBSTRUCTION [K42.*01/21/2007 07/26/2015 Cellulitis and abscess of trunk [L03.319, L02.2*10/24/2007 07/26/2015 Boil of b (more content not included)... Normal [facility] Comprehensive metabolic 2000 panelon 06-11-2024 Albumin [Mass/Vol] 4.0 g/dL Normal 3.9-4.9 [facility] Comment on above: Order Comment: Speci men Type: BLOOD SPECIMENOrdering Facility: [facility] Address: [address] [place] [address] Performed By: #### 2 4323-8, 2777-1, 80208-4 ####[facility] LABCLIA [id number] [place] [address] [place] ALP [Catalytic activity/Vol] 119 U/L High 38-113 [facility] Comment on above: Order Comment: Speci men Type: BLOOD SPECIMENOrdering Facility: [facility] Address: [address] [place] [address] Performed By: #### 2 4323-8, 2777-1, 58098-7 ####[facility] LABCLIA [id number] [address] [address] [place] ALT [Catalytic activity/Vol] 17 U/L Normal 10-54 [facility] Comment on above: Order Comment: Speci men Type: BLOOD SPECIMENOrdering Facility: [facility] Address: [address] [place] [address] Performed By: #### 2 4323-8, 2777-1, 30900-7 ####[facility] LABCLIA [id number] [place] [id number] [place] Anion gap [Moles/Vol] 14 mmol/L Normal 8-15 [facility] Comment on above: Order Comment: Speci men Type: BLOOD SPECIMENOrdering Facility: [facility] Address: [address] [place] [address] Performed By: #### 2 4323-8, 277-, 41198-3 ####[facility] LABCLIA [id number] [place] [id number] [place] AST [Catalytic activity/Vol] 18 U/L Normal 14-40 [facility] Comment on above: Order Comment: Speci men Type: BLOOD SPECIMENOrdering Facility: [facility] Address: [address] [place] [address] Performed By: #### 2 4323-8, 277-1, 87403-6 ####[facility] LABCLIA [id number] [address] [address] [place] Bilirubin [Mass/Vol] 0.6 mg/dL Normal 0.2-1.3 [facility] Comment on above: Order Comment: Speci men Type: BLOOD SPECIMENOrdering Facility: [facility] Address: [address] [place] [address] Performed By: #### 2 4323-8, 2777-1, 88103-6 ####[facility] LABCLIA [id number] [address] [address] [place] Calcium [Mass/Vol] 9.5 mg/dL Normal 8.5-10.2 [facility] Comment on above: Order Comment: Speci men Type: BLOOD SPECIMENOrdering Facility: [facility] Address: [address] [place] [address] Performed By: #### 2 4323-8, 2777-1, 90848-9 ####[facility] LABCLIA [id number] [address] [address] [place] Chloride [Moles/Vol] 97 mmol/L Low 98-107 [facility] Comment on above: Order Comment: Speci men Type: BLOOD SPECIMENOrdering Facility: [facility] Address: [address] [place] [address] Performed By: #### 2 4323-8, 2777-1, 99979-3 ####[facility] LABCLIA [id number] [place] [id number] [place] CO2 [Moles/Vol] 28 mmol/L Normal 22-30 [facility] Comment on above: Order Comment: Speci men Type: BLOOD SPECIMENOrdering Facility: [facility] Address: [address] [place] [address] Performed By: #### 2 4323-8, 2777-1, 30312-2 ####[facility] LABCLIA [id number] [address] [address] [place] Creatinine [Mass/Vol] 3.22 mg/dL High 0.73-1.22 [facility] Comment on above: Order Comment: Speci men Type: BLOOD SPECIMENOrdering Facility: [facility] Address: [address] [place] [address] Performed By: #### 2 4323-8, 2777-1, 98346-8 ####[facility] LABCLIA [id number] [address] [address] [place] Creatinine and Glomerular filtration rate.predicted panel (S/P/Bld) 20 mL/min/1.73m??? Low >=60 [facility] Comment on above: Order Comment: Ehsan nunes Type: BLOOD SPECIMENOrdering Facility: [facility] Address: [address] [place] [address] Result Comment: Aurora mated Glomerular Filtration Rate (eGFR) is calculated using the 2020 CKD-EPI creatinine equation. This equation utilizes serum creatinine, sex, and age as parameters. The creatinine assay has traceable calibration to isotope dilution-mass spectrometry. Refer to KDIGO guidelines for clinical interpretation. In patients with unstable renal function, e.g. those with acute kidney injury, the eGFR may not accurately reflect actual GFR. Performed By: #### 2 4323-8, 2777-1, 23250-2 ####[facility] LABCLIA [id number] [place] [id number] [place] Glucose [Mass/Vol] 84 mg/dL Normal 74-99 [facility] Comment on above: Order Comment: Ehsan nunes Type: BLOOD SPECIMENOrdering Facility: [facility] Address: [address] [place] [address] Result Comment: The [place] Diabetes Association (ADA) provides guidance for cutoff values for fasting glucose and random glucose. The ADA defines fasting as no caloric intake for at least 8 hours. Fasting plasma glucose results between 100 to 125 mg/dL indicate increased risk for diabetes (prediabetes). Fasting plasma glucose results greater than or equal to 126 mg/dL meet the criteria for diagnosis of diabetes. In the absence of unequivocal hyperglycemia, results should be confirmed by repeat testing. In a patient with classic symptoms of hyperglycemia or hyperglycemic crisis, random plasma glucose results greater than or equal to 200 mg/dL meet the criteria for diagnosis of diabetes. Reference: Standards of Medical Care in Diabetes 2016, [place] [employer] Association. Diabetes Care. 2016.39(Suppl 1). Performed By: #### 2 4323-8, 2777-1, 20752-9 ####[facility] LABCLIA [id number] [place] [address] [place] Potassium [Moles/Vol] 3.9 mmol/L Normal 3.7-5.1 [facility] Comment on above: Order Comment: Speci men Type: BLOOD SPECIMENOrdering Facility: [facility] Address: [address] [place] [address] Performed By: #### 2 4323-8, 2777-1, 05181-9 ####[facility] LABCLIA [id number] [address] [address] [place] Protein [Mass/Vol] 8.1 g/dL High 6.3-8.0 [facility] Comment on above: Order Comment: Speci men Type: BLOOD SPECIMENOrdering Facility: [facility] Address: [address] [place] [address] Performed By: #### 2 4323-8, 7-1, 98000-1 ####[facility] LABCLIA [id number] [address] [address] [place] Sodium [Moles/Vol] 139 mmol/L Normal 136-144 [facility] Comment on above: Order Comment: Speci men Type: BLOOD SPECIMENOrdering Facility: [facility] Address: [address] [place] [address] Performed By: #### 2 4323-8, 7-1, 44283-8 ####[facility] LABCLIA [id number] [address] [address] [place] Urea nitrogen [Mass/Vol] 32 mg/dL High 9-24 [facility] Comment on above: Order Comment: Speci men Type: BLOOD SPECIMENOrdering Facility: [facility] Address: [address] [place] [address] Performed By: #### 2 4323-8, 7-1, 37809-9 ####[facility] LABCLIA [id number] [address] [place] [address] [place] EBV capsid IgG Qn (S)on EBV VCA IGG, QUAL Positive Abnormal Negative [facility] Comment on above: Order Comment: Speci men Type: BLOOD SPECIMENOrdering Facility: [facility] Address: [address] [place] [address] Result Comment: The result suggests recent or past EBV infection. The final interpretation should be done in the context of other EBV serology panel results. Performed By: #### M EASLG, 7852-7, VZVG2, 7885-7 ####[facility] LABCLIA [id number] [address] [place] ECG COMPLETEon 06-11-2024 ECG COMPLETE Ventricular Rate : 8 2 BPM Atrial Rate : 82 BPM P-R Interval : 134 ms QRS Duration : 94 ms Q-T Interval : 386 ms QTC Calculation(Bazett) : 450 ms Calculated P [place] : 7 degrees Calculated R [place] : 22 degrees Calculated T [place] : 35 degrees SINUS RHYTHM WITH OCCASIONAL PREMATURE VENTRICULAR COMPLEXES NONSPECIFIC T WAVE ABNORMALITY ABNORMAL ECG Confirmed by DAYANA HANCOCK MD ([id number]) on 06/28/2024 6:10:15 PM NAME : JACOB LANDA PID : [id number] : 1955 Gender : Male Race : ORD : [id number] Procedure Date : Jun 11 2024 15:54:10 Edit Date : Jun 28 2024 18:10:19 Diagnosis: SINUS RHYTHM WITH OCCASIONAL PREMATURE VENTRICULAR COMPLEXES NONSPECIFIC T WAVE ABNORMALITY ABNORMAL ECG Confirmed by DAYANA HANCOCK MD ([id number]) on 06/28/2024 6:10:15 PM Test Reason : Location : 314 : [facility] Overread By : DAYNAA HANCOCK MD Edited By : DAYANA HANCOCK MD Referred By : GRABIEL RUFF Acquired by : FAIZAN BARROSO Normal [facility] Free PSA [Mass/Vol]on 2024 Free PSA/Total PSA [Mass fraction] 39 % Normal [facility] Comment on above: Order Comment: Speci men Type: BLOOD SPECIMENOrdering Facility: [facility] Address: [address] [place] [address] Result Comment: Tota l and free PSA test methodology used is the Electrochemiluminescence Immunoassay by [employer]. Total or free PSA values by differing methodologies cannot be interchanged. The below table lists the probability of finding prostate cancer upon needle biopsy, for men 50 years or older and total PSA concentrations from 4.0-10.0 ng/mL. Results should be interpreted within the broader clinical context. Free PSA(%) 50-59 years 60-69 years >69 years <11 49.2% 57.5% 64.5% 11-18 26.9% 33.9% 40.8% 19-25 18.3% 23.9% 29.7% >25 9.1% 12.2% 15.8% Performed By: #### 2 4323-8, 2777-1, 72181-4 ####[facility] LABCLIA [id number] [address] [address] [place] Prostate specific Ag [Mass/Vol] 1.60 ng/mL Normal <2.60 [facility] Comment on above: Order Comment: Speci men Type: BLOOD SPECIMENOrdering Facility: [facility] Address: [address] [place] [address] Result Comment: Tota l PSA test methodology used is the Electrochemiluminescence Immunoassay by [employer]. Total PSA values by differing methodologies cannot be interchanged. Performed By: #### 2 4323-8, 2777-1, 03890-4 ####[facility] LABCLIA [id number] [address] [address] [place] HBV core Ab Ser Qlon 025 HBV core Ab Ql (S) Negative Normal Negative [facility] Comment on above: Order Comment: Speci men Type: BLOOD SPECIMENOrdering Facility: [facility] Address: [address] [place] [address] Result Comment: No e vidence of current or past infection with Hepatitis B virus. Should recent infection be suspected, repeat testing may be considered 3-4 weeks after this draw. Performed By: #### 5 195-3, 01116-4, 74150-1, 75299-1 ####[facility] LABCLIA [id number] [place] [id number] [place] HBV surface Ab Ql (S)on HBV surface Ab Qn (S) <8.00 Normal [facility] Comment on above: Order Comment: Speci men Type: BLOOD SPECIMENOrdering Facility: [facility] Address: [address] [place] [address] Result Comment: <8 m IU/mL: No serological evidence of immunity to Hepatitis B Virus. >/= 8 to <12 mIU/mL: No serological evidence of immunity to Hepatitis B Virus. >/= 12 mIU/mL: Consistent with serological evidence of immunity to Hepatitis B Virus. Performed By: #### 5 195-3, 18433-0, 81498-2, 47557-2 ####[facility] LABCLIA [id number] [address] [place] HBV surface Ab Ser Qlon HBV surface Ab Ql (S) Negative Normal [facility] Comment on above: Order Comment: Speci men Type: BLOOD SPECIMENOrdering Facility: [facility] Address: [address] [place] [address] Result Comment: No s erological evidence of immunity to Hepatitis B Virus. Performed By: #### 5 195-3, 37306-0, 43529-2, 60800-6 ####[facility] LABCLIA [id number] [place] [address] [place] HBV surface Ag Ser Qlon HBV surface Ag Ql (S) Negative Normal Negative [facility] Comment on above: Order Comment: Speci men Type: BLOOD SPECIMENOrdering Facility: [facility] Address: [address] [place] [address] Performed By: #### 5 195-3, 08161-7, 72983-9, 69876-1 ####[facility] LABCLIA [id number] [place] [address] [place] HCV Ab Ser Qlon 06-11-2024 HCV Ab Ql (S) Negative Normal Negative [facility] Comment on above: Order Comment: Speci men Type: BLOOD SPECIMENOrdering Facility: [facility] Address: [address] [place] [address] Result Comment: The result suggests no evidence of active infection with Hepatitis C virus. Should recent infection be suspected, repeat testing may be considered 4-6 weeks after this draw. Performed By: #### 1 6128-1 ####[facility] LABCLIA [id number] [place] [address] [place] HEPATITIS A ANTIBODY, IGGon 06-11-2024 HAV IgG Ql (S) Negative Normal [facility] Comment on above: Order Comment: Speci men Type: BLOOD SPECIMENOrdering Facility: [facility] Address: [address] [place] [address] Result Comment: No s erological evidence of immunity to Hepatitis A Virus. Performed By: #### A HAVG, 51133-4 ####[facility] LABCLIA [id number] [place] [address] [place] HIV 1+2 Ab IA Qlon HIV 1 and 2 Ab IA.rapid Nom (S/P/Bld) Normal [facility] Comment on above: Order Comment: Speci men Type: BLOOD SPECIMENOrdering Facility: [facility] Address: [address] [place] [address] Result Comment: Test not indicated. Performed By: #### 5 195-3, 85134-1, 97803-5, 30464-3 ####[facility] LABCLIA [id number] [place] [address] [place] HIV 1+2 Ab+HIV1 p24 Ag IA Ql Non-Reactive Normal Nonreactive [facility] Comment on above: Order Comment: Speci men Type: BLOOD SPECIMENOrdering Facility: [facility] Address: [address] [place] [address] Performed By: #### 5 195-3, 74273-2, 24643-9, 65364-1 ####[facility] LABCLIA [id number] [place] [facility] HIV immunoassay testing algorithm interpretation (S/P/Bld) [Interp] Normal [facility] Comment on above: Order Comment: Speci men Type: BLOOD SPECIMENOrdering Facility: [facility] Address: [address] [place] [address] Result Comment: No e vidence of HIV-1 or HIV-2 infection. Should recent infection be suspected, repeat testing may be considered 2-3 weeks after this draw. [place] Rev. Code 3701.243(E): This information has been disclosed to you from confidential records protected from disclosure by state law. ???You shall make no further disclosure of this information without the specific, written, and informed release of the individual to whom it pertains or as otherwise permitted by state law. A general authorization for the release of medical or other information is not sufficient for the purpose of the release of HIV test results or diagnoses. Performed By: #### 5 195-3, 45996-0, 76941-9, 36489-6 ####[facility] LABCLIA [id number] [place] [address] [place] KID K/P PANC REC INIT W/Uon 06-11-2024 ALLOGEN RESULTS TO FOLLOW See Allogen report to follow Normal [facility] Comment on above: Order Comment: Speci men Type: BLOOD SPECIMENOrdering Facility: [facility] Address: [address] [place] [address] Performed By: #### K PRIPW ####ALLOGEN LABORATORIESCLIA [id number] [address] [place] No Panel Informationon 06-11 Interpretation and review of laboratory results Normal [facility] PT panel Coag (PPP)on 2024 INR Coag (PPP) [Relative time] 1.2 {INR} 0.9 - 1.3 [facility] Comment on above: Vitamin K Antagonist (VKA) Therapeutic Range: INR 2 to 3 (Target INR of 2.5) Note: For patients treated with VKA drugs, such as warfarin, the [place] [employer] 2012 Guideline recommends a therapeutic INR range of 2 to 3 (target INR of 2.5). This recommendation includes high-risk patients with antiphospholipid syndrome with previous arterial or venous thromboembolism, current-generation mechanical or bioprosthetic aortic heart valve replacement. Note: Patients with mechanical aortic valve replacement and additional risk factors for thromboembolic events (atrial fibrillation, previous thromboembolism, LV dysfunction, hypercoagulable conditions) or an older generation mechanical AVR (i.e., ball in-Cage) or any mechanical MVR should have a INR therapeutic range of 2.5 to 3.5 (target INR of 3). Sherman HOPKINS et mar. Chest 2012, 141:7S-47S Rose SULLIVAN et mar. [facility] 2017, 70: 252-289 PT Coag (PPP) [Time] 12.6 s [facility] INR Coag (PPP) [Relative time] 1.2 {INR} Normal 0.9-1.3 [facility] Comment on above: Order Comment: Speci men Type: BLOOD SPECIMENOrdering Facility: [facility] Address: [address] [place] [address] Result Comment: Saadia min K Antagonist (VKA) Therapeutic Range: INR 2 to 3 (Target INR of 2.5) Note: For patients treated with VKA drugs, such as warfarin, the [place] [employer] 2012 Guideline recommends a therapeutic INR range of 2 to 3 (target INR of 2.5). This recommendation includes high-risk patients with antiphospholipid syndrome with previous arterial or venous thromboembolism, current-generation mechanical or bioprosthetic aortic heart valve replacement. Note: Patients with mechanical aortic valve replacement and additional risk factors for thromboembolic events (atrial fibrillation, previous thromboembolism, LV dysfunction, hypercoagulable conditions) or an older generation mechanical AVR (i.e., ball in-Cage) or any mechanical MVR should have a INR therapeutic range of 2.5 to 3.5 (target INR of 3). dominique Osman. Chest 2012, 141:7S-47S Rose SULLIVAN et al. [facility] 2017, 70: 252-289 Performed By: #### 3 4528-0, 34605-7 ####[facility] LABCLIA [id number] [address] [place] PT Coag (PPP) [Time] 12.6 s Normal 9.7-13.0 [facility] Comment on above: Order Comment: Speci men Type: BLOOD SPECIMENOrdering Facility: [facility] Address: [address] [place] [address] Performed By: #### 3 4528-0, 56488-3 ####[facility] LABIA [id number] [address] [place] PTH-Intact SerPl-mCncon 03-0 Parathyrin.intact [Mass/Vol] 124 pg/mL High 15-65 [facility] Comment on above: Order Comment: Speci men Type: BLOOD SPECIMENOrdering Facility: [facility] Address: [address] [place] [address] Performed By: #### 2 731-8 ####[facility] LABIA [id number] [address] [place] Phosphate SerPl-mCncon 06-11 Phosphate [Mass/Vol] 3.9 mg/dL Normal 2.7-4.8 [facility] Comment on above: Order Comment: Speci men Type: BLOOD SPECIMENOrdering Facility: [facility] Address: [address] [place] [address] Performed By: #### 2 4323-8, 2777-1, 25778-4 ####[facility] [id number] [address] [place] RUBEOLA (MEASLES)IGGon 06-11 MEASLES IGG AB, QUAL Positive Normal Positive [facility] Comment on above: Order Comment: Speci men Type: BLOOD SPECIMENOrdering Facility: [facility] Address: [address] [place] [address] Result Comment: The result suggests recent or past exposure to Measles virus or Measles vaccination. The current test does not detect neutralizing antibodies. Positive result may also be seen due to presence of passively-transferred antibodies. Please correlate with patient's history. Performed By: #### M EASLG, 7852-7, VZVG2, 7885-7 ####[facility] LABCLIA [id number] [place] [address] [place] Reagin and Treponema pallidu m IgG and IgM [Interp]on 06-11-2024 T. pallidum IgG+IgM IA Ql (S) Non-Reactive Normal Nonreactive [facility] Comment on above: Order Comment: Speci men Type: BLOOD SPECIMENOrdering Facility: [facility] Address: [address] [place] [address] Performed By: #### A HARDYG, 97117-9 ####[facility] LABCLIA [id number] [place] [address] [place] Reagin+T pallidum IgG+IgM Se rPl-Impon 06-11-2024 Reagin and Treponema pallidum IgG and IgM [Interp] Cannot exclude recent Treponemal infection if specimen collected within 7-10 days after appearance of suspect lesions or 2-3 weeks after an exposure. Clinical correlation is required. Normal [facility] Comment on above: Order Comment: Ehsan nunes Type: BLOOD SPECIMENOrdering Facility: [facility] Address: [address] [place] [address] Performed By: #### A HARDYG, 10616-1 ####[facility] LABCLIA [id number] [place] [address] [place] STRONGYLOIDES IGG BLon 06-11 STRONGYLOIDES IGG QUALITATIVE Negative Normal Negative [facility] Comment on above: Order Comment: Meghani men Type: BLOOD SPECIMENOrdering Facility: [facility] Address: [address] [place] [address] Performed By: #### S TRSER ####[facility] LABCLIA [id number] [place] [id number] [place] TRANSPLANT CONFIRM ABO/RHon 06-11-2024 ABO A Normal [facility] Comment on above: Order Comment: Speci men Type: BLOOD SPECIMENOrdering Facility: [facility] Address: [address] [place] [address] Performed By: #### T RCABO ####CC MAIN BLOOD BANKCLIA [id number] [place] [id number] [place] Rh Nom (Bld) Positive Normal [facility] Comment on above: Order Comment: Speci men Type: BLOOD SPECIMENOrdering Facility: [facility] Address: [address] [place] [address] Performed By: #### T RCABO ####CC MAIN BLOOD BANKCLIA [id number] [place] [address] [place] TYPE + SCREENon 06-11-2024 ABO A Normal [facility] Comment on above: Order Comment: Speci men Type: BLOOD SPECIMENOrdering Facility: [facility] Address: [address] [place] [address] Performed By: #### T SCR ####CC MAIN BLOOD BANKCLIA [id number] [place] [address] [place] Rh Nom (Bld) Positive Normal [facility] Comment on above: Order Comment: Speci men Type: BLOOD SPECIMENOrdering Facility: [facility] Address: [address] [place] [address] Performed By: #### T SCR ####CC MAIN BLOOD BANKCLIA [id number] [place] [address] [place] TYPE AND SCREEN EXPIRATION 06/14/2024 23:59 Normal [facility] Comment on above: Order Comment: Speci men Type: BLOOD SPECIMENOrdering Facility: [facility] Address: [address] [place] [address] Performed By: #### T SCR ####CC MAIN BLOOD BANKCLIA [id number] [place] [id number] [place] VARICELLA ZOSTER IGGon 06-11 VARICELLA ZOSTER IGG, QUAL Positive Normal Positive [facility] Comment on above: Order Comment: Ehsan nunes Type: BLOOD SPECIMENOrdering Facility: [facility] Address: [address] [place] [address] Result Comment: The result suggests recent or past exposure to Varicella-Zoster virus or chickenpox vaccination or zoster vaccination. Positive result may also be seen due to presence of passively-transferred antibodies. Please correlate with patient's history. Performed By: #### M EASLG, 7852-7, VZVG2, 7885-7 ####[facility] LABCLIA [id number] [place] [address] [place] aPTT Coag (PPP) [Time]on Unfractionated Hepar in Therapeutic Ranges: Standard Heparin Nomogram: 53 to 78 seconds (anti-Xa level of 0.3 to 0.7 U/ml) Low Dose/ACS Nomogram: 49 to 67 seconds (anti-Xa level of 0.2 to 0.5 U/ml) Stroke Treatment Nomogram: 49 to 67 seconds (anti-Xa level of 0.2 to 0.5 U/ml) Note: The APTT therapeutic range has been determined for the current lot of laboratory APTT reagent in use throughout the [facility]. [facility] aPTT PPPon 06-11-2024 aPTT Coag (PPP) [Time] 31.9 s Normal 23.0-32.4 [facility] Comment on above: Order Comment: Ehsan nunes Type: BLOOD SPECIMENOrdering Facility: [facility] Address: [address] [place] [address] Performed By: #### 3 4528-0, 78262-8 ####[facility] LABCLIA [id number] [address] [place] BUN/creatinine ratioOrdered By: Nikita Jackson on 06-06-2024 Urea nitrogen/Creatinine [Mass ratio] 10.6 mg/mg 10-20 [facility] Basic Metabolic Profile (BMP )on 06-06-2024 Anion gap [Moles/Vol] 11 mmol/L Normal 5-15 [facility] Comment on above: Performed By: #### L 500.2500, L100.0500 ####[facility] [address] [place], [address] BUN/CRE 10.6 RATIO Normal 10-20 [facility] Comment on above: Performed By: #### L 500.2500, L100.0500 ####[facility] [address] [place], [address] Calcium [Mass/Vol] 9.1 mg/dL Normal 7.6-11.0 [facility] Comment on above: Performed By: #### L 500.2500, L100.0500 ####[facility] [address] [place], [address] Chloride [Moles/Vol] 98 mmol/L Normal 96-108 [facility] Comment on above: Performed By: #### L 500.2500, L100.0500 ####[facility] [address] [place], [address] CO2 [Moles/Vol] 28.9 mmol/L Normal 22.0-29.0 [facility] Comment on above: Performed By: #### L 500.2500, L100.0500 ####[facility] [address] [place], [address] Creatinine [Mass/Vol] 2.96 mg/dL High 0.70-1.20 [facility] Comment on above: Performed By: #### L 500.2500, L100.0500 ####[facility] [address] [place], [address] GFR/1.73 sq M.predicted among non-blacks MDRD (S/P/Bld) [Vol rate/Area] 22 mL/min/{1.73_m2} Low >60 [facility] Comment on above: Result Comment: mL/m in/1.73m2 CKD-EPI Creatinine Equation (2020) Performed By: #### L 500.2500, L100.0500 ####[facility] [address] [place], [address] Glucose [Mass/Vol] 93 mg/dL Normal 70-99 [facility] Comment on above: Performed By: #### L 500.2500, L100.0500 ####[facility] [address] [place], [address] Potassium [Moles/Vol] 4.0 mmol/L Normal 3.3-5.1 [facility] Comment on above: Performed By: #### L 500.2500, L100.0500 ####[facility] [address] [place], [address] Sodium [Moles/Vol] 138 mmol/L Normal 133-145 [facility] Comment on above: Performed By: #### L 500.2500, L100.0500 ####[facility] [address] [place], [address] Urea nitrogen [Mass/Vol] 32 mg/dL High 4-19 [facility] Comment on above: Performed By: #### L 500.2500, L100.0500 ####[facility] [address] [place], [address] CBC-Complete Blood Cnt No Di ffon 06-06-2024 Erythrocyte distribution width (RBC) [Ratio] 15.9 % High 11.6-14.6 [facility] Comment on above: Performed By: #### L 500.2500, L100.0500 ####[facility] [address] [place], [address] Hematocrit (Bld) [Volume fraction] 35.0 % Low 40-54 [facility] Comment on above: Performed By: #### L 500.2500, L100.0500 ####[facility] [address] [place], [address] Hemoglobin (Bld) [Mass/Vol] 11.1 g/dL Low 13.0-16.5 [facility] Comment on above: Performed By: #### L 500.2500, L100.0500 ####[facility] [address] [place], [address] MCH (RBC) [Entitic mass] 30.1 pg Normal 27.0-32.0 [facility] Comment on above: Performed By: #### L 500.2500, L100.0500 ####[facility] [address] [place], [address] MCHC (RBC) [Mass/Vol] 31.7 g/dL Low 32-36 [facility] Comment on above: Performed By: #### L 500.2500, L100.0500 ####[facility] [address] [place], [address] MCV (RBC) [Entitic vol] 94.9 fL High 80-94 [facility] Comment on above: Performed By: #### L 500.2500, L100.0500 ####[facility] [address] [place], [address] Platelet mean volume (Bld) [Entitic vol] 9.8 fL Normal 6.2-12.0 [facility] Comment on above: Performed By: #### L 500.2500, L100.0500 ####[facility] [address] [place], [address] Platelets (Bld) [#/Vol] 198 10*3/uL Normal 150-450 [facility] Comment on above: Performed By: #### L 500.2500, L100.0500 ####[facility] [address] [place], [address] RBC (Bld) [#/Vol] 3.69 10*6/uL Low 4.6-6.2 [facility] Comment on above: Performed By: #### L 500.2500, L100.0500 ####[facility] [address] [place], [address] RDW SD 55.7 fl High 35.1-43.9 [facility] Comment on above: Performed By: #### L 500.2500, L100.0500 ####[facility] [address] [place], [address] WBC (Bld) [#/Vol] 5.6 10*3/uL Normal 4.4-11.0 [facility] Comment on above: Performed By: #### L 500.2500, L100.0500 ####[facility] [address] [place], [address] CNPNon 06-06-2024 CNPN Telephone (TXCTGL) -- JACOB LANDA ([id number]) 1955 M Date Time Provider Department 06/06/24 NISHA SCHULTZ TXCTGL During your visit today, we recorded the following information about you: Allergies As of Date: 06/06/2024 Noted Allergy Reaction SEASONAL ALLERGIES 07/12/2023 14 - Other: See Comments Comments: Sneezing, watery eyes, runny nose. Date Reviewed: 05/07/2024 Reviewed by: Lisa Jordan LPN - Fully Assessed Reason for Visit: Referral - Kidney Txp [[id number]] Prescriptions as of 06/06/2024 - OLANZapine (ZYPREXA) 2.5 mg tablet Take 1 tablet by mouth daily at bedtime. - atorvastatin (LIPITOR) 80 mg tablet Take 1 tablet by mouth daily at bedtime. - metoprolol tartrate, short acting, (LOPRESSOR) 25 mg tablet Take 1 tablet by mouth two times a day. - fluticasone (FLONASE) 50 mcg/actuation nasal spray Use 1 Hutchins in each nostril once daily. - ferrous sulfate (SLOW FE) 137 mg (45 mg iron) TbER Take 1 tablet by mouth every other day. - ascorbic acid, vitamin C, (VITAMIN C) 500 mg tablet Take 1 tablet by mouth every other day. - ondansetron orally disintegrating (ZOFRAN ODT) 4 mg disintegrating tablet Take 1 tablet by mouth every 6 hours as needed for nausea/vomiting. - ezetimibe (ZETIA) 10 mg tablet Take 1 tablet by mouth once daily. - nitroglycerin sublingual (NITROQUICK) 0.4 mg SL tablet Dissolve 1 tablet under the tongue every 5 minutes as needed for chest pain. - enteric contrast (will be provided with radiology test) For CT ABD/PEL W IVCON Routine order Administer, As Directed One Time Only, via Oral, Rectal, both Oral and Rectal, Enteric Tube, Stoma or Indwelling Catheter, Enteric Contrast as designated per enteric contrast guidelines - pantoprazole DR (PROTONIX) 40 mg tablet Take 1 tablet by mouth two times a day. - acetaminophen (TYLENOL) 500 mg tablet Take 500 mg by mouth every 6 hours as needed. Meds Comments as of 03/06/2016: Krill Oil 350 Mg Antacid Will follow Dr. Light instructions regarding ASA Problem List As Of Date 06/06/2024 Noted Resolved Essential hypertension, benign [I10] Mixed hyperlipidemia [E78.2] Calculus of kidney [N20.0] 07/26/2015 Asthma [J45.909] 02/19/2006 Cough [R05.9] 02/19/2006 07/26/2015 INGUINAL HERNIA, UNILATERAL W/O GANGRENE/OBSTRU*01/21/2007 07/26/2015 UMBILICAL HERNIA W/O GANGRENE/OBSTRUCTION [K42.*01/21/2007 07/26/2015 Cellulitis and abscess of trunk [L03.319, L02.2*10/24/2007 07/26/2015 Boil of buttock [L02.32] 05/10/2009 07/26/2015 Epidermal inclusion cyst [L72.0] 05/10/2009 07/26/2015 Pyoderma, unspecified [L08.0] 05/10/2009 07/26/2015 Contact dermatitis and other eczema, due to uns*05/10/2009 07/26/2015 Other acne [L70.8] 05/10/2009 07/26/2015 GERD (gastroesophageal reflux disease) [K21.9] 07/12/2009 Personal history of colonic polyps [Z86.0100] 12/27/2009 Arthritis of right hand [M19.041] 08/04/2013 07/26/2015 Right carpal tunnel syndrome [G56.01] 08/04/2013 07/26/2015 Hematuria [R31.9] 07/20/2014 12/01/2016 BPH (benign prostatic hyperplasia) [N40.0] 07/20/2014 History of kidney stones [Z87.442] 07/20/2014 Aortic valve stenosis [I35.0] 07/26/2015 Situational depression [F43.21] 07/26/2015 Screening for colon cancer [Z12.11] 11/24/2016 Obesity, Class II, BMI 35-39.9 E66.9 [E66.812] 07/23/2017 07/19/2021 Chest pain [R07.9] 07/23/2017 07/23/2017 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] 07/23/2017 DDD (degenerative disc disease), lumbar [M51.36*11/04/2019 Malignant neoplasm of lower third of esophagus *04/27/2020 Obesity, Class I, BMI 30-34.9 [E66.811] 05/17/2020 07/19/2021 Iron deficiency anemia due to chronic blood los*05/25/2020 Iron malabsorption [K90.9] 05/25/2020 Esophageal adenocarcinoma (HCC) [C15.9] 08/09/2020 Coronary artery disease involving [place] crisostomo* On tube feeding diet [Z78.9] 08/14/2020 01/13/2021 AK (actinic keratosis) [L57.0] 09/07/2020 Medicare annual wellness visit, subsequent [Z00*01/13/2021 Pleural effusion [J90] 03/11/2021 Advance directive discussed with patient [Z71.8*02/09/2022 Medication management [Z79.899] 02/09/2022 Prostate disorder [N42.9] 02/09/2022 Decreased sexual desire [F52.0] 02/09/2022 Rn Wound's nodules [L28.1] 03/30/2023 Primary insomnia [F51.01] 03/30/2023 Closed wedge compression fracture of T10 verteb*07/12/2023 Strain of thoracic paraspinal muscles excluding*07/30/2023 03/11/2024 Kyphosis (acquired) (postural) [M40.00] 07/30/2023 Ascending aorta dilation (HCC) [I77.810] 09/21/2023 CKD (chronic kidney disease) stage 4, GFR 15-29*01/03/2024 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 [T85.868A] 01/03/2024 Pressure ulcer of unspecified buttock, stage 2 *01/03/2024 03/11/[address] [Z78.9] 03/11/2024 Elevated blood sugar [R73.9] 03/11/2024 S/P TAVR (transcatheter aortic valve replacemen*04/30/2024 Encounter Status:Closed b (more content not included)... Normal [facility] Carbon dioxide measurementOr dered By: Nikita Jackson on 06-06-2024 CO2 [Moles/Vol] 28.9 mmol/L 22.0-29.0 [facility] Chloride measurementOrdered By: Nikita Jackson on 06-06-2024 Chloride [Moles/Vol] 98 mmol/L 96-108 [facility] Erythrocyte distribution wid th ratioOrdered By: Nikita Jackson on 06-06-2024 Erythrocyte distribution width (RBC) [Ratio] 15.9 % High 11.6-14.6 [facility] Erythrocyte distribution wid th standard deviationOrdered By: Nikita Jackson on 06-06-2024 Erythrocyte distribution width (RBC) [Entitic vol] 55.7 fL High 35.1-43.9 [facility] Erythrocyte distribution width (RBC) [Ratio] 55.7 fl High 35.1-43.9 [facility] GFR/1.73 sq M.predicted [place] g non-blacks MDRD (S/P/Bld) [Vol rate/Area]Ordered By: Nikita Jackson on 06-06-2024 Estimated GFR (MDRD) Non-Af Amer 22 Low >60 [facility] Comment on above: mL/min/1.73m2 CKD-EP I Creatinine Equation (2020) Glomerular filtration rate ( GFR) estimation/1.73 sq m using serum, plasma, or whole bOrdered By: Nikita Jackson on 06-06-2024 GFR/1.73 sq M.predicted among non-blacks MDRD (S/P/Bld) [Vol rate/Area] 22 mL/min/{1.73_m2} Low >60 [facility] Comment on above: mL/min/1.73m2 CKD-EP I Creatinine Equation (2020) Hematocrit Auto (Bld) [Volum e fraction]Ordered By: Nikita Jackson on 06-06-2024 Hematocrit (Bld) [Volume fraction] 35.0 % Low 40-54 [facility] Hemoglobin measurementOrdere d By: Nikita Jackson on 06-06-2024 Hemoglobin (Bld) [Mass/Vol] 11.1 g/dL Low 13.0-16.5 [facility] MCV (mean corpuscular volume ) determinationOrdered By: Nikita Jackson on 06-06-2024 MCV (RBC) [Entitic vol] 94.9 fL High 80-94 [facility] Mean corpuscular hemoglobin (MCH) determinationOrdered By: Nikita Jackson on 06-06-2024 MCH (RBC) [Entitic mass] 30.1 pg 27.0-32.0 [facility] Mean corpuscular hemoglobin concentration (MCHC) determinationOrdered By: Nikita Jackson on 06-06-2024 MCHC (RBC) [Mass/Vol] 31.7 g/dL Low 32-36 [facility] Mean platelet volume determi nationOrdered By: Nikita Jackson on 06-06-2024 Platelet mean volume (Bld) [Entitic vol] 9.8 fL 6.2-12.0 [facility] Platelet countOrdered By: Daniel Jackson on 06-06-2024 Platelets (Bld) [#/Vol] 198 10*3/uL 150-450 [facility] RBC Auto (Bld) [#/Vol]Ordere d By: Nikita Jackson on 06-06-2024 RBC (Bld) [#/Vol] 3.69 10*6/uL Low 4.6-6.2 [facility] Serum creatinine measurement (mass/volume)Ordered By: Nikita Jackson on 06-06-2024 Creatinine [Mass/Vol] 2.96 mg/dL High 0.70-1.20 [facility] Serum glucose measurement (m ass/volume)Ordered By: Nikita Jackson on 06-06-2024 Glucose [Mass/Vol] 93 mg/dL 70-99 [facility] Serum or plasma anion gap de termination (moles/volume)Ordered By: [facility] on 06-06-2024 Anion gap [Moles/Vol] 11 mmol/L 5-15 [facility] Serum or plasma calcium alisha urement (mass/volume)Ordered By: Nikitanancy Jackson on 06-06-2024 Calcium [Mass/Vol] 9.1 mg/dL 7.6-11.0 [facility] Serum or plasma potassium me asurementOrdered By: Nikitanancy Jackson on 06-06-2024 Potassium [Moles/Vol] 4.0 mmol/L 3.3-5.1 [facility] Serum or plasma sodium measu rement (moles/volume)Ordered By: Nikita Manuel on 06-06-2024 Sodium [Moles/Vol] 138 mmol/L 133-145 [facility] Serum or plasma urea nitroge n measurement (mass/volume)Ordered By: Nikita Jackson on 06-06-2024 Urea nitrogen [Mass/Vol] 32 mg/dL High 4-19 [facility] White blood cell (WBC) count Ordered By: Nikita Jackson on 06-06-2024 WBC (Bld) [#/Vol] 5.6 10*3/uL 4.4-11.0 [facility] MR/Demetrio 06-02-2024 MR/[facility] Medical Records Department [address] [place] [address] PAT - Anesthesia 06/02/241817 MR#: [id number] Acct: [id number] Name: JACOB LANDA Rep #: [id number] : 1955 69 From: Phill Drew MD PCP: Dr. 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 When Was Last Pacemaker Check QUESTION #4 FULL TEXT: You/Your Family Experience fever (hyperthermia) with Anesthesia Last Oral Intake Last Oral intake: Last Oral Intake NPO since Meds taken in AM with sips of water? Meds patient instructed to take am of surgery PONV PONV - brake lining finisher: PONV - brake lining finisher Female No 06/02/24 10:59 HX of Motion Sickness No 06/02/24 10:59 HX of N/V After Surgery No 06/02/24 10:59 Non-Smoker Yes 06/02/24 10:59 Duration of Surgery greater No 06/02/24 10:59 than 60 minutes Number of Risk Factors 1 06/02/24 10:59 PONV Score Low Risk 06/02/24 10:59 Height Weight Height Weight: Anesthesia: Height Weight Height 5 ft 10 in 02/15/24 14:45 Respiratory Assessment Respiratory Assessment - brake lining finisher: Respiratory Tract Infection Hx - brake lining finisher Hx Respiratory Tract Infection No 06/02/24 10:59 STOP Sleep Apnea STOP Sleep Apnea - brake lining finisher: STOP Sleep Apnea - brake lining finisher Hx Hypertension Yes: CONTROLLED ON MEDS 06/02/24 10:59 Hx Sleep Apnea No 06/02/24 10:59 CPAP No 06/02/24 10:59 BIPAP No 06/02/24 10:59 Do you snore loudly (louder No 06/02/24 10:59 than talking or can be heard Do you often feel tired/ No 06/02/24 10:59 fatigued/ sleepy during daytime? Has anyone observed you stop No 06/02/24 10:59 breathing during sleep? STOP Results Negative 06/02/24 10:59 QUESTION #5 FULL TEXT : Do you snore loudly (louder than talking or can be heard through closed doors)? 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 Specify any problems Hx of Preganancy in last 3 N/A 06/02/24 10:59 Months Nurse Filling Out Transfusion VCHRISTIN 06/02/24 10:59 Questions: Date: 06/02/24 06/02/24 10:59 Time: 11:01 06/02/24 10:59 Patient unable to answer at this time (ie. confused, unrespo /Reproduction History /Reproductive History - brake lining finisher: /Reproductive Hx- brake lining finisher Hx Now No 06/02/24 10:59 Gestational Age (in weeks): EDC: Hx Hx Para Hx Section SAB No 06/02/24 10:59 [facility] Medical History (Updated 06/02/24 @ 10:58 by Tresa Mesa) Wears glasses Cancer Cancer Pressure ulcer History of renal dialysis History of renal disease Injury of back History of GI bleed Gastric reflux Shortness of breath on exertion History of stress test History of echocardiogram Cardiology follow-up encounter Thrombus of venous dialysis catheter ESRD (end stage renal disease) on dialysis Acute respiratory insufficiency Medical non-compliance Acute exacerbation of chronic heart failure Chronic kidney disease (CKD) Pleural effusion Dyspnea Acute kidney injury Adenocarcinoma of esophagus LEELA (acute kidney injury) Non-smoker Esophageal carcinoma Atherosclerosis of coronary artery of [place] heart without angina pectoris 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 heart disease due (more content not included)... Normal [facility] CNCOon 05-27-2024 CNCO Letter Text Normal [facility] CNPNon 05-27-2024 CNPN Telephone (TXCTGL) -- JACOB LANDA ([id number]) 1955 M Date Time Provider Department 05/27/24 KIDNEY TXP COORDINATORS TXCTGL During your visit today, we recorded the following information about you: Susan Meredith 05/27/2024 10:56 AM Addendum KIDNEY TRANSPLANT REFERRAL (enter above which organ the patient needs; Kidney, Pancreas or Kidney/Pancreas) Is this referral for a Safety Net or HIV Patient? No (Safety Net = Pt needing an additional transplant within 12 months for any organ) Jacob Landa [phone] Spoke with: Patient Referral Source: (Tx Access; Online; Fax; Internal or Self-Referral) Fax BIG DATA ADMIN / PHYSICIAN: MARIA VICTORIA SCOTT (see's at dialysis) Have you ever been evaluated for kidney/pancreas transplant? No Have you had a previous transplant? No Have you had one or both kidneys removed: No _ OUT OF STATE MEDICAID PATIENTS: Have you been seen at another Transplant Center that was in-network with your Out of State (OOS) Medicaid and denied a Transplant Evaluation? NA Has your PCP sent in a referral for transplant to your (OOS) Medicaid caser? NA _ If the patient has Medicare A/B as their primary insurance please ask the patient for their secondary insurance coverage. _ Height: 5'9" Weight: 162 Lbs BMI: 23.9 Have you had weight loss without trying within the last 30 days? No Malnutrition Screening Tool (MST) Weight loss score: 0 Have you been eating poorly in the last week because of a decreased appetite? No- 0 Appetite score: 0 Total MST score (weight loss + appetite scores): 0 Score of 2 or more = referral to registered dietitian for an individual appointment _ Any history of Smoking/Vaping/Nicotine products: Non-smoker Oxygen use: No Blood Transfusion: Are you willing to accept a blood transfusion if needed? Yes Assistive devices: Cane, fell broke left hip in Feb 2024 Activity Level: Light activity COPD/Emphysema/Other pulmonary problem: No Dialysis: Yes. If yes, date and location: [facility] : Dialysis start date: 03/28/2024 Dialysis Records scanned in [facility] on 05/26/24 Do you have Diabetes? No Have you had a Kidney Biopsy: No Have you had a Liver Biopsy: No Dx of Cirrhosis? No Dx of Hepatitis? No Hx of ETOH? No Hx of Drug use? No Hx of Psychiatric disorder? No Dx of HIV/AIDS? No Hx of Cancer? Yes, on or about Apr 2019 - Esophageal adenocarcinoma, Treatment: 2/3 of esophagus and 1/3 of stomach removed all at [facility]. Had Radiation and Chemo last treatment approx June or July 2020. Hx of Hypertension? Yes Hx of IA/Heart Attack? No Hx of TIA/CVA or Stroke? No Are you on a blood thinner? Yes If YES which medication are you on? Baby aspirin Have you had a CABG or STENTS? Yes. If yes, date and location: CABG 5x done in 2002 at [facility] Hrt Stents 6x done about 2014 last done 2019 done at [facility] and aorta stent in [facility] Have you ever had a Stress Test? Yes. If yes, date and location: 01/08/2021 (see scanned doc in [facility] on 01/27/21) done at [facility] Have you ever had an Echo? Yes. If yes, date and location: 09/21/2023 (see epic) Have you ever had a Cardiac Cath? Yes. If yes, date and location: 12/31/2018 CT Abdomen/Pelvis: Yes. If yes, date and location: 04/17/2024 (see epic) Colonoscopy: Yes. If yes, date and location: 06/01/2020 (see epic) Hx of Lupus? No Sickle Cell Trait or Disease: N/A Have you had any prior surgeries? Yes - Partial hip replaced (L) in Feb 2024, Tonsils removed as a child, port in chest uses for dialysis at this time. Do you have a potential living donor? No [facility] Is the patient signed up for Myert? No-patient doesn't have an email and not computer savvy. If YES - send patient the Kidney/Pancreas New Referral Message. If NO - obtain their email address AND send mychart sign up information: email address: No e-mail address on record - No Email Is the patient okay with having a Virtual Appt: No - no email and not computer savvy. Have records been retrieved from Care Everywhere: Yes. Have records been requested from [facility]? No see [facility] and [facility] Route the referral to the Kidney Txp tobacco drying machine operator, Nisha Schultz. Susan Osmanka Allergies As of Date: 05/27/2024 Noted Allergy Reaction SEASONAL ALLERGIES 07/12/2023 14 - Other: See Comments Comments: Sneezing, watery eyes, runny nose. Date Reviewed: 05/07/2024 Reviewed by: Lisa Jordan LPN - Fully Assessed Reason for Visit: Referral - Kidney Txp [[id number]] Primary Visit Diagnosis:ESRD on dialysis (HCC) [N18.6, Z99.2] Other Visit Diagnosis:Pre-transplant evalu (more content not included)... Normal [facility] CNOVon 05-07-2024 CNOV Office Visit (WSTR ) -- JACOB ALNDA ([id number]) 1955 M Date Time Provider Department 05/07/24 8:30 AM EDWIN MONTES [facility] During your visit today, we recorded the following information about you: Temperature Pulse Respiration Blood pressure 97.7 degrees 117/minute 16/minute 118/78 Weight 74.3 kg Edwin Montes APRN.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 05/07/2024 8:56 AM Signed Subjective HPI HPI Jacob Landa is a 69 year old male who presents today for CC of bilateral hand wound from dog scratch. This started 2 days ago. Has tried nothing for relief. Symptoms are worsened by nothing. Last tetanus 2017. Denies fever. .Patient presents with: dog scratches on hands: X 2 days PAST MEDICAL HISTORY Diagnosis Date Advance directive discussed with patient 02/09/2022 Discussed 02/2022, packets provided AK (actinic keratosis) 09/07/2020 One on the right forearm dorsal, three on the left forearm dorsal and one left side of face hear hair line about eye level. Tx cryo 09/2020 Aortic valve stenosis 07/26/2015 Ascending aorta dilation (HCC) 09/21/2023 09/21/2023: 4.1cm Asthma BPH (benign prostatic hyperplasia) 07/20/2014 Carpal tunnel syndrome of right wrist CKD (chronic kidney disease) stage 4, GFR 15-29 ml/min (HCC) 01/03/2024 On dialysis and seeing Dr. Greenberg. Closed wedge compression fracture of T10 vertebra (HCC) 07/12/2023 Coronary artery disease involving [place] coronary artery without angina pectoris Seeing Dr. Ludin GALVEZ (degenerative disc disease), lumbar 11/04/2019 Elevated blood sugar 03/11/2024 Esophageal adenocarcinoma (HCC) 08/09/2020 Essential hypertension, benign GERD (gastroesophageal reflux disease) 07/12/2009 History of kidney stones 07/20/2014 Iron deficiency anemia due to chronic blood loss 05/25/2020 Iron malabsorption 05/25/2020 Kidney stone Kyphosis (acquired) (postural) 07/30/[address] 03/11/2024 DPA: Lacho (step daughter) Malignant 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) 04/15/2020 Medicare annual wellness visit, subsequent 01/13/2021 Medical B eligibilty date 03/09/19 Date of last exam 01/13/2021 Mixed hyperlipidemia MRSA (methicillin resistant Staphylococcus aureus) 12/01/2016 treated with course of Linezolid beginning 10/29/16 Nonrheumatic aortic valve disorder On tube feeding diet 08/14/2020 History: 65 year old male s/p Adrián Roger esophagectomy, Pyloromyotomy, Jejunostomy tube placement for esophageal adenocarcinoma -Diet: Isosource 1.5 to 50 cc hour with 100 cc water flushes 8 times per day and Bene protein 3 times per day Removed 11/17/2020 Personal history of colonic polyps 12/27/2009 Rn Wound's nodules 03/30/2023 Will try pamelor Pleural effusion 03/11/2021 Stable in f/u studies. Pressure ulcer of unspecified buttock, stage 2 (HCC) 01/03/2024 Bilaterally. 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 4 07/23/2017 S/P TAVR (transcatheter aortic valve replacement) 04/30/2024 Needs dental prophylaxis. 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 Due to repeat anemia 01/01/2024 felt Eliquis could be stopped since risk did not out way benefit. Upper GI bleed 05/25/2020 PAST SURGICAL HISTORY Procedure Laterality Date ADENOIDECTOMY PRIMARY Adenoidectomy AORTIC VALVE RECONSTRUCTION 03/03/2019 s/p TAVR BYP OTH/THN VEIN CAROTID-SUBCLAVIAN 2003 Bypass graft carotid subcl COLONOSCOPY FLX DX W/COLLJ SPEC WHEN PFRMD 02/28/2013 COLONOSCOPY FLX DX W/COLLJ SPEC WHEN PFRMD 12/06/2016 repeat in 5 yrs COLONOSCOPY SCRN NOT HIGH RISK 06/01/2020 COLONOSCOPY W/BIOPSY SINGLE/MULTIPLE 02/22/2007 Diminutive polyp distal [id number] ECHO 01/08/2021 EGD 04/15/2020 HEART CATHETERIZATION 12/2018 with 2 stents IMPLANT MESH OPN HERNIA RPR/DEBRIDEMENT CLOSURE 03/06/2007 LAPAROSCOPY SURG RPR INITIAL INGUINAL HERNIA 03/06/2007 umbilical NM CARDIAC STRESS TEST 01/08/2021 PAST SURGICAL HISTORY OF Right 2016 incision and drainage right axillary abscess REPAIR ANORECTAL FISTULA W/PLUG 12/06/2016 REPAIR FIRST ABDOMINAL WALL HERNIA 03/06/2007 right STENT - CORONARY 2015 x3 AND x2 12/2018 TONSILLECTOMY PRIMARY/SECONDARY Tonsillectomy TOT/SUB ESOPHAGECTOMY W/THORACOT 08/09/2020 Adrián Roger esophagectomy, jejunostomy tube placement TOTAL HIP REPLACEMENT Left 02/15/2024 ALLERGIES Seasonal Allergies MEDICATIONS OLANZapine (ZYPREXA) 2.5 mg tablet Take 1 tablet by mouth daily at bedtime. atorvastatin (LIPITOR) 80 mg tablet Take 1 tablet by mouth daily at bedtime. metoprolol tartrate, short acting, (LOPRESSOR) 25 mg tablet Take 1 tablet by mouth two times a day. fluticasone (FLONASE) 50 mcg/actuation nasal spray Use 1 Hutchins in each nostril once daily. ferrous sulfate (SLOW FE) 137 mg (45 mg iron) TbER Take 1 tablet by (more content not included)... Normal [facility]07[facility]20[facility] JACOB LANDA ([id number]) 1955 M Date Time Provider Department 05/07/24 RICHARD JENKINS During your visit today, we recorded the following information about you: Richard Jenkins DO 05/07/2024 5:24 PM Signed Can let him know the MRI scan shows no evidence of cancer in his back. Follow-up as scheduled. DO Ana Laura Begum Kara, LPN 05/08/2024 8:36 AM Signed Patient notified and voices understanding. Erin Du LPN Allergies As of Date: 05/07/2024 Noted Allergy Reaction SEASONAL ALLERGIES 07/12/2023 14 - Other: See Comments Comments: Sneezing, watery eyes, runny nose. Date Reviewed: 05/07/2024 Reviewed by: Lisa Jordan LPN - Fully Assessed Reason for Visit: Results [95] Prescriptions as of 05/08/2024 - doxycycline monohydrate 100 mg tablet Take 1 tablet by mouth two times a day for 7 days. - mupirocin (BACTROBAN) 2 % ointment Apply to affected area three times a day for 10 days. - OLANZapine (ZYPREXA) 2.5 mg tablet Take 1 tablet by mouth daily at bedtime. - atorvastatin (LIPITOR) 80 mg tablet Take 1 tablet by mouth daily at bedtime. - metoprolol tartrate, short acting, (LOPRESSOR) 25 mg tablet Take 1 tablet by mouth two times a day. - fluticasone (FLONASE) 50 mcg/actuation nasal spray Use 1 Hutchins in each nostril once daily. - ferrous sulfate (SLOW FE) 137 mg (45 mg iron) TbER Take 1 tablet by mouth every other day. - ascorbic acid, vitamin C, (VITAMIN C) 500 mg tablet Take 1 tablet by mouth every other day. - ondansetron orally disintegrating (ZOFRAN ODT) 4 mg disintegrating tablet Take 1 tablet by mouth every 6 hours as needed for nausea/vomiting. - ezetimibe (ZETIA) 10 mg tablet Take 1 tablet by mouth once daily. - nitroglycerin sublingual (NITROQUICK) 0.4 mg SL tablet Dissolve 1 tablet under the tongue every 5 minutes as needed for chest pain. - enteric contrast (will be provided with radiology test) For CT ABD/PEL W IVCON Routine order Administer, As Directed One Time Only, via Oral, Rectal, both Oral and Rectal, Enteric Tube, Stoma or Indwelling Catheter, Enteric Contrast as designated per enteric contrast guidelines - pantoprazole DR (PROTONIX) 40 mg tablet Take 1 tablet by mouth two times a day. - acetaminophen (TYLENOL) 500 mg tablet Take 500 mg by mouth every 6 hours as needed. Meds Comments as of 03/06/2016: Krill Oil 350 Mg Antacid Will follow Dr. Light instructions regarding ASA Problem List As Of Date 05/07/2024 Noted Resolved Essential hypertension, benign [I10] Mixed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 smoker alcohol intake: never substance use type: does not use caffeine: No what type of physical activity do you participate in: walking frequency: daily HPI HPI HPI: JACOB LANDA, is a 69 M who presents to the office today for evaluation for dialysis access. He has been on dialysis since October when he suffered acute illness, LEELA. He has not has significant recovery of renal function and he is expected to remain HD dependent. He currently uses a left IJ catheter; has been replaced once. No arm or clavicle fracture/pacer/node dissection/PICC. Right hand dominant. ROS General General: Yes weakness; No weight change, appetite, fatigue, colon cancer or breast cancer HEENT HEENT: No difficulty swallowing, eye injury, eye surgery, swollen glands or hoarseness Endo Endocrine: No thyroid disease, diabetes mellitus, thyroid cancer, Hair (more content not included)... Normal [facility] Dialysis Vein Map PRE-OP VALERIE ATon 04-24-2024 Dialysis Vein Map PRE-OP BILAT [facility] [address] [place] [address] Dialysis Vein Map PRE-OP BILAT 04/24/24 0808 MR#: [id number] Acct: [id number] Name: JACOB LANDA Rep #: [id number] : 1955 69 From: Nikita Jackson MD Attending Dr: Dr. Gaudencio Greenberg MD Status: REG CLI Ordering Dr: Gaudencio Greenberg MD Date: 04/24/24 Location: [facility] Sex: M C Admitted: Reason For Study: Pre op Right Arm Left Arm Cephalic Vein at distal forearm measures Cephalic Vein at distal forearm measures 0.16 x 0.19 cm. 0.29 x 0.34 cm. Cephalic Vein at mid forearm measures 0.20 x Cephalic Vein at mid forearm measures 0.27 x 0.24 cm. 0.29 cm. Cephalic Vein proximal forearm measures 0.15 Cephalic Vein proximal forearm measures 0.28 x 0.16 cm. x 0.31 cm. Cephalic Vein distal upper arm measures 0.10 Cephalic Vein distal upper arm measures 0.25 x 0.09 cm. x 0.27 cm. Cephalic Vein at mid upper arm measures 0.13 Cephalic Vein at mid upper arm measures 0.28 x 0.16 cm. x 0.30 cm. Cephalic Vein at proximal upper arm measures Cephalic Vein at proximal upper arm measures 0.19 x 0.20 cm. 0.37 x 0.38 cm. Proximal Basilic vein measures 0.41 x 0.46 Proximal Basilic vein measures 0.73 x 0.80 cm. cm. Mid Basilic vein measures 0.40 x 0.50 cm. Mid Basilic vein measures 0.35 x 0.36 cm. Distal Basilic vein measures 0.32 x 0.33 cm. Distal Basilic vein measures 0.38 x 0.39 cm. Right Brachial artery measures 0.44 x 0.49 Left Brachial artery measures 0.39 x 0.40 cm cm with a velocity of 63.3 cm/sec. with a velocity of 64.6 cm/sec. Right Radial artery measures 0.20 x 0.24 cm Left Radial artery measures 0.26 x 0.24 cm with a velocity of 46.5 cm/sec. with a velocity of 52.9 cm/sec. VL/Dialysis Vein Map PRE-OP BILAT Interpretation Summary Bilateral upper extremity arteries patent with normal waveforms and measurements above. Bilateral upper extremity veins patent with measurements above. Ordering Physician: Gaudencio Greenberg Referring Physician: Yaw Singh Performed By: Di Appiah Pamela ??? 04/24/24 1340 Date Nikita Jackson MD CC: Dr. Gaudencio Greenberg MD; Dr. Yaw Singh MD Date Dictated: 04/24/24 0808 Date Transcribed: 04/24/241339 Gunner'S Mate: Signed [facility] 04-19-2024 [facility] Telephone (FAMPWS) -- SYEDAJACOB TATE ([id number]) 1955 M Date Time Provider Department 04/19/24 YAW SINGH During your visit today, we recorded the following information about you: Yaw Singh MD 04/19/2024 2:34 PM Signed Let patient know the only thing out of sorts on his recent labs was his calcium and potassium were slightly and this will most likely be address with his dialysis. All his other labs were ok. Gayatri Pradhan MA 04/21/2024 8:51 AM Signed Message left for pt to call back for results. Hayde Jenkins MA, LPN 04/21/2024 11:25 AM Signed Spoke with pt and information listed below given. Pt verbalizes understanding. Hayde Summers LPN Allergies As of Date: 04/19/2024 Noted Allergy Reaction SEASONAL ALLERGIES 07/12/2023 14 - Other: See Comments Comments: Sneezing, watery eyes, runny nose. Date Reviewed: 04/08/2024 Reviewed by: Beatrice Zuleta, RT(R) - Fully Assessed Reason for Visit: Results [95] Prescriptions as of 04/21/2024 - OLANZapine (ZYPREXA) 2.5 mg tablet Take 1 tablet by mouth daily at bedtime. - atorvastatin (LIPITOR) 80 mg tablet Take 1 tablet by mouth daily at bedtime. - metoprolol tartrate, short acting, (LOPRESSOR) 25 mg tablet Take 1 tablet by mouth two times a day. - fluticasone (FLONASE) 50 mcg/actuation nasal spray Use 1 Hutchins in each nostril once daily. - ferrous sulfate (SLOW FE) 137 mg (45 mg iron) TbER Take 1 tablet by mouth every other day. - ascorbic acid, vitamin C, (VITAMIN C) 500 mg tablet Take 1 tablet by mouth every other day. - ondansetron orally disintegrating (ZOFRAN ODT) 4 mg disintegrating tablet Take 1 tablet by mouth every 6 hours as needed for nausea/vomiting. - ezetimibe (ZETIA) 10 mg tablet Take 1 tablet by mouth once daily. - nitroglycerin sublingual (NITROQUICK) 0.4 mg SL tablet Dissolve 1 tablet under the tongue every 5 minutes as needed for chest pain. - enteric contrast (will be provided with radiology test) For CT ABD/PEL W IVCON Routine order Administer, As Directed One Time Only, via Oral, Rectal, both Oral and Rectal, Enteric Tube, Stoma or Indwelling Catheter, Enteric Contrast as designated per enteric contrast guidelines - pantoprazole DR (PROTONIX) 40 mg tablet Take 1 tablet by mouth two times a day. - acetaminophen (TYLENOL) 500 mg tablet Take 500 mg by mouth every 6 hours as needed. Meds Comments as of 03/06/2016: Krill Oil 350 Mg Antacid Will follow Dr. Light instructions regarding ASA Problem List As Of Date 04/19/2024 Noted Resolved Essential hypertension, benign [I10] Mixed hyperlipidemia [E78.2] Calculus of kidney [N20.0] 07/26/2015 Asthma [J45.909] 02/19/2006 Cough [R05.9] 02/19/2006 07/26/2015 INGUINAL HERNIA, UNILATERAL W/O GANGRENE/OBSTRU*01/21/2007 07/26/2015 UMBILICAL HERNIA W/O GANGRENE/OBSTRUCTION [K42.*01/21/2007 07/26/2015 Cellulitis and abscess of trunk [L03.319, L02.2*10/24/2007 07/26/2015 Boil of buttock [L02.32] 05/10/2009 07/26/2015 Epidermal inclusion cyst [L72.0] 05/10/2009 07/26/2015 Pyoderma, unspecified [L08.0] 05/10/2009 07/26/2015 Contact dermatitis and other eczema, due to uns*05/10/2009 07/26/2015 Other acne [L70.8] 05/10/2009 07/26/2015 GERD (gastroesophageal reflux disease) [K21.9] 07/12/2009 Personal history of colonic polyps [Z86.0100] 12/27/2009 Arthritis of right hand [M19.041] 08/04/2013 07/26/2015 Right carpal tunnel syndrome [G56.01] 08/04/2013 07/26/2015 Hematuria [R31.9] 07/20/2014 12/01/2016 BPH (benign prostatic hyperplasia) [N40.0] 07/20/2014 History of kidney stones [Z87.442] 07/20/2014 Aortic valve stenosis [I35.0] 07/26/2015 Situational depression [F43.21] 07/26/2015 Screening for colon cancer [Z12.11] 11/24/2016 Obesity, Class II, BMI 35-39.9 E66.9 [E66.812] 07/23/2017 07/19/2021 Chest pain [R07.9] 07/23/2017 07/23/2017 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] 07/23/2017 DDD (degenerative disc disease), lumbar [M51.36*11/04/2019 Malignant neoplasm of lower third of esophagus *04/27/2020 Obesity, Class I, BMI 30-34.9 [E66.811] 05/17/2020 07/19/2021 Iron deficiency anemia due to chronic blood los*05/25/2020 Iron malabsorption [K90.9] 05/25/2020 Esophageal adenocarcinoma (HCC) [C15.9] 08/09/2020 Coronary artery disease involving [place] crisostomo* On tube feeding diet [Z78.9] 08/14/2020 01/13/2021 AK (actinic keratosis) [L57.0] 09/07/2020 Medicare annual wellness visit, subsequent [Z00*01/13/2021 Pleural effusion [J90] 03/11/2021 Advance directive discussed with patient [Z71.8*02/09/2022 Medication management [Z79.899] 02/09/2022 Prostate disorder [N42.9] 02/09/2022 Decreased sexual desire [F52.0] 02/09/2022 Rn Wound's nodules [L28.1] 03/30/2023 Primary insomnia [F51.01] 03/30/2023 Closed wedge compression fracture of T10 verteb*07/12/2023 Strain of thoracic paraspinal muscles excluding*07/30/2023 (more content not included)... Normal [facility] CBC W Auto Differential pane l (Bld)on 04-17-2024 Basophils (Bld) [#/Vol] 0.04 10*3/uL Normal <0.11 [facility] Comment on above: Order Comment: Speci men Type: BLOOD SPECIMENOrdering Facility: [facility] Address: [address] [place] [address] Performed By: #### 5 7021-8, 19145-5 ####[facility] MILLTOWNCLIA [id number] [place] [address] [place] Basophils/100 WBC (Bld) 0.6 % Normal [facility] Comment on above: Order Comment: Speci men Type: BLOOD SPECIMENOrdering Facility: [facility] Address: [address] [place] [address] Performed By: #### 5 7021-8, 02767-8 ####[facility] IMP[facility] POINTAMANDAA [id number] [place] [address] [place] Differential cell count method Nom (Bld) Auto Normal [facility] Comment on above: Order Comment: Speci men Type: BLOOD SPECIMENOrdering Facility: [facility] Address: [address] [place] [address] Performed By: #### 5 7021-8, 93067-8 ####[facility] HOSPITALWVTLIA [id number] [place] [address] [place] Eosinophils (Bld) [#/Vol] 0.20 10*3/uL Normal <0.46 [facility] Comment on above: Order Comment: Speci men Type: BLOOD SPECIMENOrdering Facility: [facility] Address: [address] [place] [address] Performed By: #### 5 7021-8, 79542-7 ####[facility] MILLWNCLIA [id number] [place] [address] [place] Eosinophils/100 WBC (Bld) 3.2 % Normal [facility] Comment on above: Order Comment: Speci men Type: BLOOD SPECIMENOrdering Facility: [facility] Address: [address] [place] [address] Performed By: #### 5 7021-8, 01306-6 ####[facility] BLANCALINVILLE FALLSNCREMIA [id number] [place] [address] [place] Erythrocyte distribution width (RBC) [Ratio] 17.3 % High 11.5-15.0 [facility] Comment on above: Order Comment: Speci men Type: BLOOD SPECIMENOrdering Facility: [facility] Address: [address] [place] [address] Performed By: #### 5 7021-8, 06139-0 ####[facility] POINTNCFRIDA [id number] [place] [address] [place] Hematocrit (Bld) [Volume fraction] 45.4 % Normal 39.0-51.0 [facility] Comment on above: Order Comment: Speci men Type: BLOOD SPECIMENOrdering Facility: [facility] Address: [address] [place] [address] Performed By: #### 5 7021-8, 84711-3 ####[facility]PITALREMIA [id number] [place] [address] [place] Hemoglobin (Bld) [Mass/Vol] 14.3 g/dL Normal 13.0-17.0 [facility] Comment on above: Order Comment: Speci men Type: BLOOD SPECIMENOrdering Facility: [facility] Address: [address] [place] [address] Performed By: #### 5 7021-8, 16707-3 ####[facility] IMP[facility] POINTNCREMIA [id number] [place] [address] [place] Immature granulocytes (Bld) [#/Vol] 0.04 10*3/uL Normal <0.10 [facility] Comment on above: Order Comment: Speci men Type: BLOOD SPECIMENOrdering Facility: [facility] Address: [address] [place] [address] Performed By: #### 5 7021-8, 93986-8 ####[facility] LILIAN [id number] [place] [address] [place] Immature granulocytes/100 WBC (Bld) 0.6 % Normal [facility] Comment on above: Order Comment: Speci men Type: BLOOD SPECIMENOrdering Facility: [facility] Address: [address] [place] [address] Performed By: #### 5 7021-8, 19881-7 ####[facility] BLANCAMEENU [id number] [place] [address] [place] Lymphocytes (Bld) [#/Vol] 0.70 10*3/uL Low 1.00-4.00 [facility] Comment on above: Order Comment: Speci men Type: BLOOD SPECIMENOrdering Facility: [facility] Address: [address] [place] [address] Performed By: #### 5 7021-8, 07803-4 ####[facility] BLANCALINVILLE FALLSAMANDAA [id number] [place] [address] [place] Lymphocytes/100 WBC (Bld) 11.4 % Normal [facility] Comment on above: Order Comment: Speci men Type: BLOOD SPECIMENOrdering Facility: [facility] Address: [address] [place] [address] Performed By: #### 5 7021-8, 06916-9 ####[facility] POINTAMANDAA [id number] [place] [address] [place] MCH (RBC) [Entitic mass] 28.7 pg Normal 26.0-34.0 [facility] Comment on above: Order Comment: Speci men Type: BLOOD SPECIMENOrdering Facility: [facility] Address: [address] [place] [address] Performed By: #### 5 7021-8, 19266-8 ####[facility] POINTGERSON [id number] [place] [address] [place] MCHC (RBC) [Mass/Vol] 31.5 g/dL Normal 30.5-36.0 [facility] Comment on above: Order Comment: Speci men Type: BLOOD SPECIMENOrdering Facility: [facility] Address: [address] [place] [address] Performed By: #### 5 7021-8, 01821-7 ####[facility] POINTGIANAINTERMOUNTAIN MED[facility] [id number] [place] [address] [place] MCV (RBC) [Entitic vol] 91.2 fL Normal 80.0-100.0 [facility] Comment on above: Order Comment: Speci men Type: BLOOD SPECIMENOrdering Facility: [facility] Address: [address] [place] [address] Performed By: #### 5 7021-8, 26573-0 ####[facility]PITALA [id number] [place] [address] [place] Monocytes (Bld) [#/Vol] 0.48 10*3/uL Normal <0.87 [facility] Comment on above: Order Comment: Speci men Type: BLOOD SPECIMENOrdering Facility: [facility] Address: [address] [place] [address] Performed By: #### 5 7021-8, 75878-1 ####[facility] POINTNCLIA [id number] [place] [address] [place] Monocytes/100 WBC (Bld) 7.8 % Normal [facility] Comment on above: Order Comment: Speci men Type: BLOOD SPECIMENOrdering Facility: [facility] Address: [address] [place] [address] Performed By: #### 5 7021-8, 05480-1 ####[facility] MILLTOWNCLIA [id number] [place] [address] [place] Neutrophils (Bld) [#/Vol] 4.70 10*3/uL Normal 1.45-7.50 [facility] Comment on above: Order Comment: Speci men Type: BLOOD SPECIMENOrdering Facility: [facility] Address: [address] [place] [address] Performed By: #### 5 7021-8, 42077-5 ####[facility] HOSPITALWNCLIA [id number] [place] [address] [place] Neutrophils/100 WBC (Bld) 76.4 % Normal [facility] Comment on above: Order Comment: Speci men Type: BLOOD SPECIMENOrdering Facility: [facility] Address: [address] [place] [address] Performed By: #### 5 7021-8, 76485-3 ####[facility] HOSPITALLIA [id number] [place] [address] [place] Nucleated RBC (Bld) [#/Vol] 10*3/uL Normal <0.01 [facility] Comment on above: Order Comment: Speci men Type: BLOOD SPECIMENOrdering Facility: [facility] Address: [address] [place] [address] Performed By: #### 5 7021-8, 96601-2 ####[facility] MILLTOWNCLIA [id number] [place] [address] [place] Nucleated RBC/100 WBC (Bld) [Ratio] 0.0 /100 WBC Normal [facility] Comment on above: Order Comment: Speci men Type: BLOOD SPECIMENOrdering Facility: [facility] Address: [address] [place] [address] Performed By: #### 5 7021-8, 83871-9 ####[facility] MILLWNCLIA [id number] [place] [address] [place] Platelet mean volume (Bld) [Entitic vol] 9.6 fL Normal 9.0-12.7 [facility] Comment on above: Order Comment: Speci men Type: BLOOD SPECIMENOrdering Facility: [facility] Address: [address] [place] [address] Performed By: #### 5 7021-8, 13773-2 ####[facility] BLANCALINVILLE FALLSAMANDAA [id number] [place] [address] [place] Platelets (Bld) [#/Vol] 185 10*3/uL Normal 150-400 [facility] Comment on above: Order Comment: Speci men Type: BLOOD SPECIMENOrdering Facility: [facility] Address: [address] [place] [address] Performed By: #### 5 7021-8, 73030-9 ####[facility] POINTAMANDAA [id number] [place] [address] [place] RBC (Bld) [#/Vol] 4.98 10*6/uL Normal 4.20-6.00 [facility] Comment on above: Order Comment: Speci men Type: BLOOD SPECIMENOrdering Facility: [facility] Address: [address] [place] [address] Performed By: #### 5 7021-8, 92664-2 ####[facility] BLANCALINVILLE FALLSGIANALIA [id number] [place] [address] [place] WBC (Bld) [#/Vol] 6.16 10*3/uL Normal 3.70-11.00 [facility] Comment on above: Order Comment: Speci men Type: BLOOD SPECIMENOrdering Facility: [facility] Address: [address] [place] [address] Performed By: #### 5 7021-8, 13066-7 ####[facility] BLANCALINVILLE FALLSNCLIA [id number] [place] [address] [place] COPPER BLOODon 04-17-2024 Copper [Mass/Vol] 124 ug/dL Normal 70-140 [facility] Comment on above: Order Comment: Speci men Type: BLOOD SPECIMENOrdering Facility: [facility] Address: [address] [place] [address] Result Comment: This test was developed, and its performance characteristics determined by the [facility] Department of Pathology and Laboratory Medicine. It has not been cleared or approved by the FDA. The [facility] Department of Pathology and Laboratory Medicine is regulated under CLIA as qualified to perform high-complexity testing. This test is used for clinical purposes. It should not be regarded as investigational or for research. Performed By: #### C OPPER ####[facility] LABCLIA [id number] [place] [address] [place] ABD/PEL WO IVCONon 2024 CT ABD/PEL WO IVCON * * *Final Report* * * DATE OF EXAM: Apr 17 2024 2:21PM [facility] 0531 - CT ABD/PEL WO IVCON / PROCEDURE REASON: Malignant 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) * * * * Physician Interpretation * * * * EXAMINATION: CT ABDOMEN AND PELVIS WITHOUT IV CONTRAST CLINICAL HISTORY: Malignant 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) TECHNIQUE: Non-IV contrast imaging of the abdomen and pelvis was performed using standard technique, scanning from just above the dome of the diaphragm to the symphysis pubis. Unenhanced imaging is limited for the evaluation of some intra-abdominal and pelvic pathology. MQ: CTAPWO_3 Contrast: IV: None Oral: 10 ml of Omni 240 10-25ml diluted with water CT Radiation dose: Integrated Dose-length product (DLP) for this visit = 820 mGy*cm. CT Dose Reduction Employed: Automated exposure control(AEC) and iterative recon COMPARISON: 08/03/2023 CT abdomen pelvis RESULT: Abdomen / Pelvis: Single phase noncontrast images are not optimized to interrogate solid organs. Liver: Unremarkable. Normal hepatic morphology. Biliary: The gallbladder is unremarkable. Spleen: No splenomegaly. Scattered punctate calcification, likely sequela from prior granulomatous disease. Pancreas: Unremarkable. 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 Unchanged some mild parenchymal thickening of the LEFT gland.. Kidneys: Similar appearance of RIGHT lower pole renal cyst and LEFT upper pole hypodensity No calculus, hydronephrosis or finding to suggest a mass in the unenhanced kidney. GI Tract: No bowel dilation. There is diverticulosis. No changes of diverticulitis. Lymph Nodes: No lymphadenopathy. Mesentery/peritoneum: No ascites. Postsurgical changes from hernia repair. Retroperitoneum: No mass. Vasculature: Arterial atherosclerotic disease without aneurysm. Pelvis: No mass or ascites. Left hip arthroplasty streak artifact degrades image quality. Bones/Soft Tissues: No acute abnormality. Lower thorax: A chest CT performed will be reported separately. Localizer images: No additional findings. IMPRESSION: No evidence of acute abnormalities or metastasis in the abdomen and pelvis. Gunner'S Mate: MORGAN Transcribe Date/Time: Apr 19 2024 7:52P Dictated by : TONNY SAINI MD This examination was interpreted and the report reviewed and electronically signed by: TONNY SAINI MD on Apr 19 2024 7:58PM EST [id number] Normal [facility] CT CHEST WO IVCONon 04-17-19 CT CHEST WO IVCON * * *Final Report* * * DATE OF EXAM: Apr 17 2024 2:21PM [facility] 0541 - CT CHEST WO IVCON / PROCEDURE REASON: Malignant 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) * * * * Physician Interpretation * * * * EXAMINATION: CHEST CT WITHOUT CONTRAST CLINICAL HISTORY: Malignant 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) Technique: Spiral CT acquisition of the chest from the thoracic inlet to the upper abdomen without contrast. MQ: CTCWO_6 CT Radiation dose: Integrated Dose-length product (DLP) for this visit = 820 mGy*cm CT Dose Reduction Employed: Automated exposure control(AEC) and iterative recon Comparison: 08/03/2023 CT chest RESULT: Limitations: None. Lines, tubes, and devices: Left IJ tunneled central venous catheter in place. Lung parenchyma and airways: No consolidation. No suspicious pulmonary nodule. Small calcified pulmonary nodules, likely sequelae from prior granulomatous disease. Right upper lobe 2 mm nodule on series 10 image 56; another RIGHT upper lobe 2 mm nodule on image 66; 2 RIGHT upper lobe pleural-based tiny nodules on images 38 and 43; all unchanged from prior examination. The central airways are patent. Pleural space: Interval slightly increased RIGHT small pleural effusion and decreased LEFT moderate pleural effusion. Lower neck, lymph nodes, and mediastinum: The imaged thyroid gland is normal. No lymphadenopathy in the supraclavicular, axillary, mediastinal, or hilar regions. Stable postsurgical changes of esophagectomy and gastric pull-through without suspicious nodularity or mass. Heart, pericardium, and thoracic vessels: Status post the prior median sternotomy, aortic valve repair and CABG. The thoracic aorta and main pulmonary artery are normal in caliber. The cardiac chambers are normal in size. Moderate coronary artery atherosclerotic calcifications are noted, although the study is not optimized for coronary assessment. No pericardial effusion or thickening. Bones and soft tissues: Stable T11 and worsened T10 anterior wedge height loss with superior endplate defects. No other destructive bone lesion. Chest wall is unremarkable. Upper abdomen: Same day CT abdomen pelvis reported separately. Localizer images: No additional findings. IMPRESSION: No CT evidence of acute abnormality, recurrence or new metastasis in the thorax. Worsening T10 presumed pathological compression fracture with superior endplate defects. Gunner'S Mate: PSCB Transcribe Date/Time: Apr 19 2024 7:33P Dictated by : TONNY SAINI MD This examination was interpreted and the report reviewed and electronically signed by: TONNY SAINI MD on Apr 19 2024 7:52PM EST [id number] Normal [facility] Comprehensive metabolic 2000 panelon 04-17-2024 Albumin [Mass/Vol] 3.9 g/dL Normal 3.9-4.9 [facility] Comment on above: Order Comment: Ehsan nunes Type: BLOOD SPECIMENOrdering Facility: [facility] Address: [address] [place] [address] Performed By: #### 1 9123-9, 88907-2 ####[facility] [id number] [place] [id number] [place] ALP [Catalytic activity/Vol] 116 U/L High 38-113 [facility] Comment on above: Order Comment: Ehsan nunes Type: BLOOD SPECIMENOrdering Facility: [facility] Address: [address] [place] [address] Performed By: #### 1 9123-9, 53939-4 ####[facility] CARILIA [id number] [place] [address] [place] ALT [Catalytic activity/Vol] 35 U/L Normal 10-54 [facility] Comment on above: Order Comment: Speci men Type: BLOOD SPECIMENOrdering Facility: [facility] Address: [address] [place] [address] Performed By: #### 1 9123-9, 51858-1 ####[facility] DAMIONA [id number] [place] [address] [place] Anion gap [Moles/Vol] 11 mmol/L Normal 8-15 [facility] Comment on above: Order Comment: Speci men Type: BLOOD SPECIMENOrdering Facility: [facility] Address: [address] [place] [address] Performed By: #### 1 9123-9, 58410-6 ####[facility] BLANCALINVILLE FALLSGIANALIA [id number] [place] [address] [place] AST [Catalytic activity/Vol] 27 U/L Normal 14-40 [facility] Comment on above: Order Comment: Speci men Type: BLOOD SPECIMENOrdering Facility: [facility] Address: [address] [place] [address] Performed By: #### 1 9123-9, 91054-4 ####[facility] BLANCANabilNCLIA [id number] [place] [address] [place] Bilirubin [Mass/Vol] 0.5 mg/dL Normal 0.2-1.3 [facility] Comment on above: Order Comment: Speci men Type: BLOOD SPECIMENOrdering Facility: [facility] Address: [address] [place] [address] Performed By: #### 1 9123-9, 17028-3 ####[facility] MILLTOWNCLIA [id number] [place] [address] [place] Calcium [Mass/Vol] 8.4 mg/dL Low 8.5-10.2 [facility] Comment on above: Order Comment: Speci men Type: BLOOD SPECIMENOrdering Facility: [facility] Address: [address] [place] [address] Performed By: #### 1 9123-9, ####[facility] MILLTOWNCLIA [id number] [place] [address] [place] Chloride [Moles/Vol] 93 mmol/L Low 98-107 [facility] Comment on above: Order Comment: Speci men Type: BLOOD SPECIMENOrdering Facility: [facility] Address: [address] [place] [address] Performed By: #### 1 9123-9, ####[facility]PITALL[facility] [id number] [place] [address] [place] CO2 [Moles/Vol] 30 mmol/L Normal 22-30 [facility] Comment on above: Order Comment: Speci men Type: BLOOD SPECIMENOrdering Facility: [facility] Address: [address] [place] [address] Performed By: #### 1 9123-9, ####[facility] MILLTOWNCLIA [id number] [place] [address] [place] Creatinine [Mass/Vol] 2.25 mg/dL High 0.73-1.22 [facility] Comment on above: Order Comment: Speci men Type: BLOOD SPECIMENOrdering Facility: [facility] Address: [address] [place] [address] Performed By: #### 1 9123-9, 84597-6 ####[facility] MILLLINVILLE FALLSGIANALIA [id number] [place] [address] [place] Creatinine and Glomerular filtration rate.predicted panel (S/P/Bld) 31 mL/min/1.73m??? Low >=60 [facility] Comment on above: Order Comment: Ehsan nunes Type: BLOOD SPECIMENOrdering Facility: [facility] Address: [address] [place] [address] Result Comment: Aurora mated Glomerular Filtration Rate (eGFR) is calculated using the 2020 CKD-EPI creatinine equation. This equation utilizes serum creatinine, sex, and age as parameters. The creatinine assay has traceable calibration to isotope dilution-mass spectrometry. Refer to KDIGO guidelines for clinical interpretation. In patients with unstable renal function, e.g. those with acute kidney injury, the eGFR may not accurately reflect actual GFR. Performed By: #### 1 9123-9, 80642-6 ####[facility] [id number] [place] [address] [place] Glucose [Mass/Vol] 104 mg/dL High 74-99 [facility] Comment on above: Order Comment: Ehsan nunes Type: BLOOD SPECIMENOrdering Facility: [facility] Address: [address] [place] [address] Result Comment: The [place] Diabetes Association (ADA) provides guidance for cutoff values for fasting glucose and random glucose. The ADA defines fasting as no caloric intake for at least 8 hours. Fasting plasma glucose results between 100 to 125 mg/dL indicate increased risk for diabetes (prediabetes). Fasting plasma glucose results greater than or equal to 126 mg/dL meet the criteria for diagnosis of diabetes. In the absence of unequivocal hyperglycemia, results should be confirmed by repeat testing. In a patient with classic symptoms of hyperglycemia or hyperglycemic crisis, random plasma glucose results greater than or equal to 200 mg/dL meet the criteria for diagnosis of diabetes. Reference: Standards of Medical Care in Diabetes 2016, [place] [employer] Association. Diabetes Care. 2016.39(Suppl 1). Performed By: #### 1 9123-9, 36366-5 ####[facility] [id number] [place] [address] [place] Potassium [Moles/Vol] 3.5 mmol/L Low 3.7-5.1 [facility] Comment on above: Order Comment: Speci men Type: BLOOD SPECIMENOrdering Facility: [facility] Address: [address] [place] [address] Performed By: #### 1 9123-9, 18636-7 ####[facility] HOSPITALMEENU [id number] [place] [address] [place] Protein [Mass/Vol] 7.8 g/dL Normal 6.3-8.0 [facility] Comment on above: Order Comment: Speci men Type: BLOOD SPECIMENOrdering Facility: [facility] Address: [address] [place] [address] Performed By: #### 1 9123-9, 97145-5 ####[facility] POINTGERSON [id number] [place] [address] [place] Sodium [Moles/Vol] 134 mmol/L Low 136-144 [facility] Comment on above: Order Comment: Speci men Type: BLOOD SPECIMENOrdering Facility: [facility] Address: [address] [place] [address] Performed By: #### 1 9123-9, 28268-0 ####[facility] POINTAMANDAA [id number] [place] [address] [place] Urea nitrogen [Mass/Vol] 24 mg/dL Normal 9-24 [facility] Comment on above: Order Comment: Speci men Type: BLOOD SPECIMENOrdering Facility: [facility] Address: [address] [place] [address] Performed By: #### 1 9123-9, 38507-0 ####[facility] POINTNCLIA [id number] [place] [address] [place] HbA1c (Bld)on 04-17-2024 Average glucose Estimated from glycated hemoglobin (Bld) [Mass/Vol] 85 mg/dL Normal [facility] Comment on above: Order Comment: Ehsan nunes Type: BLOOD SPECIMENOrdering Facility: [facility] Address: [address] [place] [address] Result Comment: eAG: (Estimated average glucose) is a calculated value from HgbA1c and is premium representative of the average blood glucose level in the last 2-3 month period. Performed By: #### 5 5454-3 ####[facility] LABCLIA [id number] [place] [address] [place] HbA1c (Bld) [Mass fraction] 4.6 % Normal 4.3-5.6 [facility] Comment on above: Order Comment: Ehsan nunes Type: BLOOD SPECIMENOrdering Facility: [facility] Address: [address] [place] [address] Result Comment: Amer [place] Diabetes Association guidelines indicate that patients with HgbA1c in the range 5.7-6.4% are at increased risk for development of diabetes, and intervention by lifestyle modification may be beneficial. HgbA1c greater or equal to 6.5% is considered diagnostic of diabetes. Performed By: #### 5 5454-3 ####[facility] LABCLIA [id number] [place] [address] [place] LIPID PANEL, NONFASTINGon Cholesterol [Mass/Vol] 117 mg/dL Normal <200 [facility] Comment on above: Order Comment: Ehsan nunes Type: BLOOD SPECIMENOrdering Facility: [facility] Address: [address] [place] [address] Result Comment: <200 mg/dL, Desirable 200-239 mg/dL, Borderline high >239 mg/dL, High Performed By: #### L IPNF, 3016-3 ####[facility] LABIA [id number] [place] [address] [place] HDL CHOLESTEROL, NF 49 mg/dL Normal >39 [facility] Comment on above: Order Comment: Ehsan nunes Type: BLOOD SPECIMENOrdering Facility: [facility] Address: [address] [place] [address] Result Comment: 40-5 9 mg/dL, Acceptable >59 mg/dL, High: Negative risk factor for coronary heart disease <40 mg/dL, Low: Positive risk factor for coronary heart disease Performed By: #### L PHAN, 3015-3 ####[facility] LABCLIA [id number] [address] [place] LDL CHOLESTEROL, NF 52 mg/dL Normal <100 [facility] Comment on above: Order Comment: Speci men Type: BLOOD SPECIMENOrdering Facility: [facility] Address: [address] [place] [address] Result Comment: <100 mg/dL, Optimal 100-129 mg/dL, Near optimal/above optimal 130-159 mg/dL, Borderline high 160-189 mg/dL, High >189 mg/dL, Very high Secondary prevention optimal LDL Cholesterol levels are recommended to be < 70 mg/dL Performed By: #### L PHAN, 3015- ####[facility] LABCLIA [id number] [address] [place] LDL/HDL RATIO, NF 1.06 mg/dL Normal <2.54 [facility] Comment on above: Order Comment: Meghani men Type: BLOOD SPECIMENOrdering Facility: [facility] Address: [address] [place] [address] Result Comment: Refe rence: 1. National Cholesterol Education Program ATP III Guideline At-A-Glance Quick Desk Reference: National Heart, Lung, and Blood Dickens. National Institutes of Health. 2001: NIH Publication No. 01-3305. 2. An International Atherosclerosis Society position paper: global recommendations for the management of dyslipidemia: executive summary, Atherosclerosis. 2014: 232(2):410-413. Performed By: #### L PHAN, 3015-3 ####[facility] LABCLIA [id number] [place] [address] [place] NON HDL CHOL, NF 68 mg/dL Normal <130 [facility] Comment on above: Order Comment: Speci men Type: BLOOD SPECIMENOrdering Facility: [facility] Address: [address] [place] [address] Result Comment: <130 mg/dL, Optimal 130-159 mg/dL, Near optimal/above optimal 160-189 mg/dL, Borderline high 190-219 mg/dL, High >219 mg/dL, Very high Secondary prevention optimal non HDL Cholesterol levels are recommended to be <100 mg/dL Performed By: #### L IPNF, 3015-3 ####[facility] LABCLIA [id number] [place] [address] [place] T CHOL/HDL RATIO NF 2.39 mg/dL Normal <5.10 [facility] Comment on above: Order Comment: Speci men Type: BLOOD SPECIMENOrdering Facility: [facility] Address: [address] [place] [address] Performed By: #### L IPNF, 3015-3 ####[facility] LABCLIA [id number] [place] [address] [place] TRIGLYCERIDES, NF 79 mg/dL Normal <150 [facility] Comment on above: Order Comment: Speci men Type: BLOOD SPECIMENOrdering Facility: [facility] Address: [address] [place] [address] Result Comment: <150 mg/dL, Normal 150-199 mg/dL, Borderline high 200-499 mg/dL, High >499 mg/dL, Very high Performed By: #### L IPNF, 3015-3 ####[facility] LABCLIA [id number] [place] [address] [place] VLDL CHOLESTEROL, NF 16 mg/dL Normal <30 [facility] Comment on above: Order Comment: Speci men Type: BLOOD SPECIMENOrdering Facility: [facility] Address: [address] [place] [address] Performed By: #### L IPNF, 3015-3 ####[facility] LABCLIA [id number] [place] [id number] [place] Magnesium SerPl-mCncon 04-17 Magnesium [Mass/Vol] 2.2 mg/dL Normal 1.7-2.3 [facility] Comment on above: Order Comment: Speci men Type: BLOOD SPECIMENOrdering Facility: [facility] Address: [address] [place] [address] Performed By: #### 1 9123-9, 94917-3 ####[facility] [id number] [place] [address] [place] PSA SerPl-mCncon 04-17-2024 Prostate specific Ag [Mass/Vol] 1.48 ng/mL Normal <2.60 [facility] Comment on above: Order Comment: Speci men Type: BLOOD SPECIMENOrdering Facility: [facility] Address: [address] [place] [address] Result Comment: Tota l PSA test methodology used is the Electrochemiluminescence Immunoassay by [employer]. Total PSA values by differing methodologies cannot be interchanged. Performed By: #### 2 857-1 ####[facility] LABCLIA [id number] [place] [address] [place] Retics #on 04-17-2024 Reticulocytes (Bld) [#/Vol] 0.73339 10*3/uL Normal 0.018-0.100 [facility] Comment on above: Order Comment: Speci men Type: BLOOD SPECIMENOrdering Facility: [facility] Address: [address] [place] [address] Performed By: #### 5 7021-8, 47929-7 ####[facility] [id number] [place] [address] [place] Reticulocytes (Bld) [#/Vol]o n 04-17-2024 Reticulocytes/100 RBC (Bld) 1.2 % Normal 0.4-2.0 [facility] Comment on above: Order Comment: Speci men Type: BLOOD SPECIMENOrdering Facility: [facility] Address: [address] [place], [place] [address] Performed By: #### 5 7021-8, 58582-4 ####[facility] [id number] [place] [address] [place] TSH SerPl-aCncon 04-17-2024 TSH Qn 2.780 m[IU]/L Normal 0.270-4.200 [facility] Comment on above: Order Comment: Speci men Type: BLOOD SPECIMENOrdering Facility: [facility] Address: [address] [place] [address] Performed By: #### L IPNF, 3016-3 ####[facility] LABCLIA [id number] [place] [id number] [place] [id number] 03-31-2024 [id number] HNO ID: [id number] Author: TYE FLORES PT Service: ? Author Type: Physical Therapist Type: [id number] Filed: 03/31/2024 16:43 Note Text: [facility] Physical Therapy Plan of Care Certification Patient Name: Jacob Landa : 1955 [facility] #: [id number] Date: 09/06/2023 To: Jesus Manuel Resendiz PA-C From Therapist: Tye Flores PT RE: Patient Certification/ Recertification Your review, approval and electronic signature are required in order to comply with Payor: MEDICARE / Plan: MEDICARE A AND B / Product Type: Medicare / regulations. The identified Physical Therapy PLAN OF CARE for the patient is as follows: S29.012S Strain of thoracic paraspinal muscles excluding T1 and T2 levels, sequela (primary encounter diagnosis) C15.5 Malignant 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) S22.070D Closed wedge compression fracture of T10 vertebra with routine healing, subsequent encounter M40.00 Kyphosis (acquired) (postural) PLAN OF CARE UPDATE: Assessment: Jacob Landa demonstrates improvements in core strength, pain intensity and level of independence with the HEP. He has progressed toward goals. Patient continues to present with impairments in independence in exercise and strength that interfere with nothing . Current prognosis is Good due to: current objective clinical presentation, good support system/ coping skills . He will benefit from continued skilled therapy services to meet the updated goals for this plan of care as noted below. Goals updated 09/06/23 Goals for Episode of Care: created on 07/30/23 through 10/22/23 Independent in home exercises. - MET Patient will decrease pain rating by 2 points to meet minimal clinical important difference for numeric pain rating scale. - MET Pt will demo LB strength of 5/5 for improved tolerance to lifting and carrying objects in 12 weeks or less - Progressing Pt will demo abdominal strength of 5/5 for improved spine stability and decrease pain with lifting and carrying objects - Progressing Patient Goals: Improve his ability to work and improve core strength Patient Goals: Improve his ability to work and improve core strength Planned Interventions, Frequency, and Duration: 1x every other week, 4 weeks Total Number of Visits Planned: 2 Patient to be seen for Therapeutic exercise (41640), Neuromuscular re-education (62073), Manual therapy (72425), Therapeutic activities (50484), Self-fdc management (15287), Patient/Family/Caregiver Education PLAN FOR NEXT VISIT: Core strengthening For further details regarding this patient refer to the Physical Therapy electronically documented visit dated 09/06/2023. Provider Attestation I have reviewed the treatment plan for Jacob Landa, [facility]# [id number] for the period of 09/06/23 -- 10/11/23, established on 09/06/2023. Signature certifies the need for therapy services. Normal [facility] CNOVon 03-11-2024 CNOV Office Visit (FAMPWS ) -- JACOB LANDA ([id number]) 1955 M Date Time Provider Department 03/11/24 9:40 AM YAW SINGH FAMPWS During your visit today, we recorded the following information about you: Pulse Respiration Blood pressure Weight 94/minute 16/minute 120/76 71.2 kg Height 1.778 m Yaw Singh MD 03/12/2024 12:56 PM Addendum Jacob Landa is a 68 year old male here for a Medicare wellness visit. Medicare Health Risk Assessment General Health Very good Exercise: Minutes/Day 0 min Exercise: Days/Week 0 days Alcohol: Daily Use Never Alcohol: Drinks/Day Patient does not drink Alcohol: 6 or more drinks Never Feel off balance No Concerns: Teeth/Dentures No Concerns: Sexual function No Troubled by feelings None of the above Frequency: Eating healthy diet Nearly every day ADLs requiring help Driving Safety precautions in home/vehicle No Smoke, vape, chews tobacco No Difficulty hearing No Difficulty seeing No Current Providers Specialists: I have reviewed specialist-related care of the patient in the medical record. Current care team: Patient Care Team: Yaw Singh MD as PCP - General (Family Medicine) Madan Roy MD as Physician (Radiation Oncology) Luly Gaffney RN as Specialty Airport Utility Worker (Oncology) Richard Jenkins DO as Referring (Hematology/Oncology) Haroldo Noland MD (Cardiology) Sena Seymour, MICHELE (Inactive) as Sueding Machine Tender Friend, Bud Paul DO (Gastroenterology) Helen Gibson, Maegan Ferguson, RN as Primary Care Residential Support Specialist Medical/Family history review Reviewed and updated problem list, medical/surgical/family/so cial history, medications, and allergies. Opioid use review Opioid Medications (last 90 days) 01/03/2024 Opioid Medications hydrocodone/acetaminophen 1 tablet q 6 H PRN Given at [facility] ER 09/10/23 ORAL (2.5-325 mg tab) -Discontinued (Therapy comp) Patient not taking as of 01/03/2024 11:04 AM Details Patient-reported medication Patient not taking Depression Screening Cognitive screening Score: 4 Cognitive screening reviewed and No further action needed (score 3-5). Functional Observation Was the patient's Timed Up AND Go test unsteady or >= 12 seconds? S/p left hip replacement and still using a walker. Advance Care Planning Surrogate decision maker and/or advance care plan documented Measurements BP 120/76 Pulse 94 Resp 16 Ht 177.8 cm (5' 10") Wt 71.2 kg (157 lb) BMI 22.53 kg/m? Vision Screening: Follows with optometry/ophthalmology Assessment/Plan Medicare annual wellness visit, subsequent (Z00.00) - Counseled on healthy diet and regular exercise - Fall avoidance information provided - Personalized prevention plan provided See Below Chief Complaint Patient presents with: Medicare Wellness Exam HPI Jacob Landa is a 68 year old male who presents here today for Chronic Medical Conditions. and Medicare Annual Visit. Patient with hx of CAD, hyperlipidemia, aortic valve stenosis, asthma, GERD, esophageal cancer, DDD, depression, BPH and those as below. Patient is status post left HIP replacement 02/15/2024. Doing well and making improvement Continues to follow with Cardio, renal, Heme/Onc. No new issues or concerns. Past medical history, appointments, medications, allergies reviewed. Previous Medical History PAST MEDICAL HISTORY Diagnosis Date Advance directive discussed with patient 02/09/2022 Discussed 02/2022, packets provided AK (actinic keratosis) 09/07/2020 One on the right forearm dorsal, three on the left forearm dorsal and one left side of face hear hair line about eye level. Tx cryo 09/2020 Aortic valve stenosis 07/26/2015 Ascending aorta dilation (HCC) 09/21/2023 09/21/2023: 4.1cm Asthma BPH (benign prostatic hyperplasia) 07/20/2014 Carpal tunnel syndrome of right wrist CKD (chronic kidney disease) stage 4, GFR 15-29 ml/min (HCC) 01/03/2024 On dialysis and seeing Dr. Greenberg. Closed wedge compression fracture of T10 vertebra (HCC) 07/12/2023 Coronary artery disease involving [place] coronary artery without angina pectoris Seeing Dr. Noland DDD (degenerative disc disease), lumbar 11/04/2019 Esophageal adenocarcinoma (HCC) 08/09/2020 Essential hypertension, benign GERD (gastroesophageal reflux disease) 07/12/2009 History of kidney stones 07/20/2014 Iron deficiency anemia due to chronic blood loss 05/25/2020 Iron malabsorption 05/25/2020 Kidney stone Kyphosis (acquired) (postural) 07/30/2023 Malignant 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) 04/15/2020 Medicare annual wellness visit, subsequent 01/13/2021 Medical B eligibilty date 03/09/19 Date of last exam 01/13/2021 Mixed hyperlipidemia MRSA (methicillin resistant Staphylococcus aureus) 12/01/2016 treated with course of Linezolid beginning 10/29/16 Nonrheumatic aortic valve diso (more content not included)... Normal [facility] Basic Metabolic Profile (BMP )on 02-17-2024 BUN/CRE 11.7 RATIO Normal 10-20 [facility] Comment on above: Performed By: #### L 500.2500, L100.0500 ####[facility] [address] [place], [address] CA,Total 8.2 mg/dL Low 8.5-10.1 [facility] Comment on above: Performed By: #### L 500.2500, L100.0500 ####[facility] [address] [place], [address] Chloride [Moles/Vol] 105 mmol/L Normal 98-107 [facility] Comment on above: Performed By: #### L 500.2500, L100.0500 ####[facility] [address] [place], [address] CO2 [Moles/Vol] 24.0 mmol/L Normal 21.0-32.0 [facility] Comment on above: Performed By: #### L 500.2500, L100.0500 ####[facility] [address] [place], [address] Creatinine [Mass/Vol] 4.10 mg/dL High 0.70-1.30 [facility] Comment on above: Result Comment: The validity of the calculated GFR GFRAA in patients over 70 years has not been determined. Clinical correlation is essential. Performed By: #### L 500.2500, L100.0500 ####[facility] [address] [place], [address] ECRCL 20.16 ml/min Normal [facility] Comment on above: Performed By: #### L 500.2500, L100.0500 ####[facility] [address] [place], [address] EST GFR - AA 19 mL/min Low >60 [facility] Comment on above: Result Comment: Afri can [place] GFR Calc Performed By: #### L 500.2500, L100.0500 ####[facility] [address] [place], [address] GAP 7 Normal 5-15 [facility] Comment on above: Performed By: #### L 500.2500, L100.0500 ####[facility] [address] [place], [address] GFR/1.73 sq M.predicted among non-blacks MDRD (S/P/Bld) [Vol rate/Area] 15 mL/min/{1.73_m2} Low >60 [facility] Comment on above: Result Comment: Non- GFR Calc Performed By: #### L 500.2500, L100.0500 ####[facility] [address] [place], [address] Glucose [Mass/Vol] 93 mg/dL Normal 74-106 [facility] Comment on above: Performed By: #### L 500.2500, L100.0500 ####[facility] [address] [place], [address] Potassium [Moles/Vol] 4.8 mmol/L Normal 3.5-5.1 [facility] Comment on above: Performed By: #### L 500.2500, L100.0500 ####[facility] [address] [place], [address] Sodium [Moles/Vol] 136 mmol/L Normal 136-145 [facility] Comment on above: Performed By: #### L 500.2500, L100.0500 ####[facility] [address] [place], [address] Urea nitrogen [Mass/Vol] 48 mg/dL High 7-18 [facility] Comment on above: Performed By: #### L 500.2500, L100.0500 ####[facility] [address] [place], [address] CBC-Complete Blood Cnt No Di ffon 02-17-2024 Erythrocyte distribution width (RBC) [Ratio] 19.0 % High 11.6-14.6 [facility] Comment on above: Performed By: #### L 500.2500, L100.0500 ####[facility] [address] [place], [address] Hematocrit (Bld) [Volume fraction] 34.3 % Low 40-54 [facility] Comment on above: Performed By: #### L 500.2500, L100.0500 ####[facility] [address] [place], [address] Hemoglobin (Bld) [Mass/Vol] 10.5 g/dL Low 13.0-16.5 [facility] Comment on above: Performed By: #### L 500.2500, L100.0500 ####[facility] [address] [place], [address] MCH (RBC) [Entitic mass] 28.2 pg Normal 27.0-32.0 [facility] Comment on above: Performed By: #### L 500.2500, L100.0500 ####[facility] [address] [place], [address] MCHC (RBC) [Mass/Vol] 30.6 g/dL Low 32-36 [facility] Comment on above: Performed By: #### L 500.2500, L100.0500 ####[facility] [address] [place], [address] MCV (RBC) [Entitic vol] 92.0 fL Normal 80-94 [facility] Comment on above: Performed By: #### L 500.2500, L100.0500 ####[facility] [address] [place], [address] Platelet mean volume (Bld) [Entitic vol] 8.7 fL Normal 6.2-12.0 [facility] Comment on above: Performed By: #### L 500.2500, L100.0500 ####[facility] [address] [place], [address] Platelets (Bld) [#/Vol] 104 10*3/uL Low 150-450 [facility] Comment on above: Performed By: #### L 500.2500, L100.0500 ####[facility] [address] [place], [address] RBC (Bld) [#/Vol] 3.73 10*6/uL Low 4.6-6.2 [facility] Comment on above: Performed By: #### L 500.2500, L100.0500 ####[facility] [address] [place], [address] RDW SD 63.3 fl High 35.1-43.9 [facility] Comment on above: Performed By: #### L 500.2500, L100.0500 ####[facility] [address] [place], [address] WBC (Bld) [#/Vol] 4.9 10*3/uL Normal 4.4-11.0 [facility] Comment on above: Performed By: #### L 500.2500, L100.0500 ####[facility] [address] [place], [address] Basic Metabolic Profile (BMP )on 02-16-2024 BUN/CRE 10.3 RATIO Normal 10-20 [facility] Comment on above: Performed By: #### L 500.2500, L100.0500 ####[facility] [address] [place], [address] CA,Total 8.2 mg/dL Low 8.5-10.1 [facility] Comment on above: Performed By: #### L 500.2500, L100.0500 ####[facility] [address] [place], [address] Chloride [Moles/Vol] 106 mmol/L Normal 98-107 [facility] Comment on above: Performed By: #### L 500.2500, L100.0500 ####[facility] [address] [place], [address] CO2 [Moles/Vol] 23.0 mmol/L Normal 21.0-32.0 [facility] Comment on above: Performed By: #### L 500.2500, L100.0500 ####[facility] [address] [place], [address] Creatinine [Mass/Vol] 3.10 mg/dL High 0.70-1.30 [facility] Comment on above: Result Comment: The validity of the calculated GFR GFRAA in patients over 70 years has not been determined. Clinical correlation is essential. Performed By: #### L 500.2500, L100.0500 ####[facility] [address] [place], [address] ECRCL 26.69 ml/min Normal [facility] Comment on above: Performed By: #### L 500.2500, L100.0500 ####[facility] [address] [place], [address] EST GFR - AA 26 mL/min Low >60 [facility] Comment on above: Result Comment: Afri can [place] GFR Calc Performed By: #### L 500.2500, L100.0500 ####[facility] [address] [place], [address] GAP 7 Normal 5-15 [facility] Comment on above: Performed By: #### L 500.2500, L100.0500 ####[facility] [address] [place], [address] GFR/1.73 sq M.predicted among non-blacks MDRD (S/P/Bld) [Vol rate/Area] 21 mL/min/{1.73_m2} Low >60 [facility] Comment on above: Result Comment: Non- GFR Calc Performed By: #### L 500.2500, L100.0500 ####[facility] [address] [place], [address] Glucose [Mass/Vol] 74 mg/dL Normal 74-106 [facility] Comment on above: Performed By: #### L 500.2500, L100.0500 ####[facility] [address] [place], [address] Potassium [Moles/Vol] 5.1 mmol/L Normal 3.5-5.1 [facility] Comment on above: Performed By: #### L 500.2500, L100.0500 ####[facility] [address] [place], [place], [address] Sodium [Moles/Vol] 136 mmol/L Normal 136-145 [facility] Comment on above: Performed By: #### L 500.2500, L100.0500 ####[facility] [address] [place], [address] Urea nitrogen [Mass/Vol] 32 mg/dL High 7-18 [facility] Comment on above: Performed By: #### L 500.2500, L100.0500 ####[facility] [address] [place], [address] CBC-Complete Blood Cnt No Di ffon 02-16-2024 Erythrocyte distribution width (RBC) [Ratio] 19.1 % High 11.6-14.6 [facility] Comment on above: Performed By: #### L 500.2500, L100.0500 ####[facility] [address] [place], [address] Hematocrit (Bld) [Volume fraction] 38.8 % Low 40-54 [facility] Comment on above: Performed By: #### L 500.2500, L100.0500 ####[facility] [address] [place], [address] Hemoglobin (Bld) [Mass/Vol] 11.5 g/dL Low 13.0-16.5 [facility] Comment on above: Performed By: #### L 500.2500, L100.0500 ####[facility] [address] [place], [address] MCH (RBC) [Entitic mass] 27.8 pg Normal 27.0-32.0 [facility] Comment on above: Performed By: #### L 500.2500, L100.0500 ####[facility] [address] [place], [address] MCHC (RBC) [Mass/Vol] 29.6 g/dL Low 32-36 [facility] Comment on above: Performed By: #### L 500.2500, L100.0500 ####[facility] [address] [place], [address] MCV (RBC) [Entitic vol] 93.9 fL Normal 80-94 [facility] Comment on above: Performed By: #### L 500.2500, L100.0500 ####[facility] [address] [place], [address] Platelet mean volume (Bld) [Entitic vol] 9.0 fL Normal 6.2-12.0 [facility] Comment on above: Performed By: #### L 500.2500, L100.0500 ####[facility] [address] [place], [address] Platelets (Bld) [#/Vol] 110 10*3/uL Low 150-450 [facility] Comment on above: Performed By: #### L 500.2500, L100.0500 ####[facility] [address] [place], [address] RBC (Bld) [#/Vol] 4.13 10*6/uL Low 4.6-6.2 [facility] Comment on above: Performed By: #### L 500.2500, L100.0500 ####[facility] [address] [place], [address] RDW SD 64.0 fl High 35.1-43.9 [facility] Comment on above: Performed By: #### L 500.2500, L100.0500 ####[facility] [address] [place], [address] WBC (Bld) [#/Vol] 8.6 10*3/uL Normal 4.4-11.0 [facility] Comment on above: Performed By: #### L 500.2500, L100.0500 ####[facility] [address] [place], [address] 12 Lead EKGon 02-15-2024 12 Lead EKG [facility] [address] [place] [address] 12 Lead EKG 02/15/24 0517 MR#: [id number] Acct: [id number] Name: JACOB LANDA Rep #: [id number] : 1955 68 From: Haroldo Noland MD Attending Dr: Dr. Gayatri Roy, DO Status: DIS I N Ordering Dr: Cameron Rosas MD Date: 02/15/24 Location: [facility] Sex: M C Admitted: 02/15/24 Test Reason : PRE-OP Blood Pressure : */* mmHG Vent. Rate : 83 BPM Atrial Rate : 83 BPM P-R Int : 136 ms QRS Dur : 86 ms QT Int : 394 ms P-R-T Axes : 27 22 35 degrees QTcB Int : 462 ms Normal sinus rhythm Normal ECG When compared with ECG of 14-Feb-2024 23:18, MANUAL COMPARISON REQUIRED DATA IS UNCONFIRMED Confirmed by LUDIN MANNING, HAROLDO ([id number]), website/blog editor CHRISTIANO OWENS ([id number]) on 02/18/2024 12:37:01 PM Referred By: CORADO Confirmed By: HAROLDO NOLAND MD 02/18/24 1237 Date Haroldo Noland MD CC: Dr. Cameron Rosas MD; Dr. Yaw Singh MD; Dr. Gayatri Roy, DO Signed Normal [facility] CBC W/Diff, Automatedon 11-0 Absolute Lymph 0.62 X10 3/uL Low 0.83-4.51 [facility] Comment on above: Performed By: #### L 500.4050, L501.2300, L100.0100, L501.5200, L501.9520 #### [facility] Laboratory [address] [place], [address] Absolute Neut 3.7 X10 3/uL Normal 2.0-7.7 [facility] Comment on above: Performed By: #### L 500.4050, L501.2300, L100.0100, L501.5200, L501.9520 #### [facility] [address] [place], [address] Basophils/100 WBC (Bld) 0.8 % Normal 0-1 [facility] Comment on above: Performed By: #### L 500.4050, L501.2300, L100.0100, L501.5200, L501.9520 #### [facility] [address] [place], [address] Eosinophils/100 WBC (Bld) 1.0 % Normal 0-5 [facility] Comment on above: Performed By: #### L 500.4050, L501.2300, L100.0100, L501.5200, L501.9520 #### [facility] [address] [place], [address] Erythrocyte distribution width (RBC) [Ratio] 19.5 % High 11.6-14.6 [facility] Comment on above: Performed By: #### L 500.4050, L501.2300, L100.0100, L501.5200, L501.9520 #### [facility] [address] [place], [address] Hematocrit (Bld) [Volume fraction] 40.6 % Normal 40-54 [facility] Comment on above: Performed By: #### L 500.4050, L501.2300, L100.0100, L501.5200, L501.9520 #### [facility] [address] [place], [address] Hemoglobin (Bld) [Mass/Vol] 12.3 g/dL Low 13.0-16.5 [facility] Comment on above: Performed By: #### L 500.4050, L501.2300, L100.0100, L501.5200, L501.9520 #### [facility] [address] [place], [address] IG% 0.400 Normal 0.0-0.9 [facility] Comment on above: Result Comment: IG% - Immature Granulocytes (promyelocytes, myelocytes and metamyelocytes) > 1% indicates that a LEFT SHIFT is Present. Performed By: #### L 500.4050, L501.2300, L100.0100, L501.5200, L501.9520 #### [facility] [address] [place], [address] Lymphocytes/100 WBC (Bld) 12.7 % Low 19-41 [facility] Comment on above: Performed By: #### L 500.4050, L501.2300, L100.0100, L501.5200, L501.9520 #### [facility] [address] [place], [address] MCH (RBC) [Entitic mass] 28.0 pg Normal 27.0-32.0 [facility] Comment on above: Performed By: #### L 500.4050, L501.2300, L100.0100, L501.5200, L501.9520 #### [facility] [address] [place], [address] MCHC (RBC) [Mass/Vol] 30.3 g/dL Low 32-36 [facility] Comment on above: Performed By: #### L 500.4050, L501.2300, L100.0100, L501.5200, L501.9520 #### [facility] [address] [place], [address] MCV (RBC) [Entitic vol] 92.5 fL Normal 80-94 [facility] Comment on above: Performed By: #### L 500.4050, L501.2300, L100.0100, L501.5200, L501.9520 #### [facility] [address] [place], [address] Monocytes/100 WBC (Bld) 8.6 % Normal 0-10 [facility] Comment on above: Performed By: #### L 500.4050, L501.2300, L100.0100, L501.5200, L501.9520 #### [facility] [address] [place], [address] Neutrophils/100 WBC (Bld) 76.5 % High 47-70 [facility] Comment on above: Performed By: #### L 500.4050, L501.2300, L100.0100, L501.5200, L501.9520 #### [facility] [address] [place], [address] Nucleated RBC (Bld) [#/Vol] 0 10*3/uL Normal 0-5 [facility] Comment on above: Performed By: #### L 500.4050, L501.2300, L100.0100, L501.5200, L501.9520 #### [facility] [address] [place], [address] Platelet mean volume (Bld) [Entitic vol] 9.6 fL Normal 6.2-12.0 [facility] Comment on above: Performed By: #### L 500.4050, L501.2300, L100.0100, L501.5200, L501.9520 #### [facility] [address] [place], [address] Platelets (Bld) [#/Vol] 120 10*3/uL Low 150-450 [facility] Comment on above: Performed By: #### L 500.4050, L501.2300, L100.0100, L501.5200, L501.9520 #### [facility] [address] [place], [address] RBC (Bld) [#/Vol] 4.39 10*6/uL Low 4.6-6.2 [facility] Comment on above: Performed By: #### L 500.4050, L501.2300, L100.0100, L501.5200, L501.9520 #### [facility] [address] [place], [address] RDW SD 62.8 fl High 35.1-43.9 [facility] Comment on above: Performed By: #### L 500.4050, L501.2300, L100.0100, L501.5200, L501.9520 #### [facility] [address] [place], [address] WBC (Bld) [#/Vol] 4.9 10*3/uL Normal 4.4-11.0 [facility] Comment on above: Performed By: #### L 500.4050, L501.2300, L100.0100, L501.5200, L501.9520 #### [facility] [address] [place], [address] Comprehensive Metabolic Prof ilon 02-15-2024 Albumin [Mass/Vol] 2.4 g/dL Low 3.2-5.0 [facility] Comment on above: Performed By: #### L 500.4050, L501.2300, L100.0100, L501.5200, L501.9520 #### [facility] [address] [place], [address] Albumin/Globulin [Mass ratio] 0.7 {ratio} Low 0.9-2.4 [facility] Comment on above: Performed By: #### L 500.4050, L501.2300, L100.0100, L501.5200, L501.9520 #### [facility] [address] [place], [address] ALK P 108 U/L Normal 45-117 [facility] Comment on above: Performed By: #### L 500.4050, L501.2300, L100.0100, L501.5200, L501.9520 #### [facility] [address] [place], [address] ALT [Catalytic activity/Vol] 38 U/L Normal 16-61 [facility] Comment on above: Performed By: #### L 500.4050, L501.2300, L100.0100, L501.5200, L501.9520 #### [facility] [address] [place], [address] AST [Catalytic activity/Vol] 16 U/L Normal 15-37 [facility] Comment on above: Performed By: #### L 500.4050, L501.2300, L100.0100, L501.5200, L501.9520 #### [facility] [address] [place], [address] Bilirubin [Mass/Vol] 0.50 mg/dL Normal 0.20-1.00 [facility] Comment on above: Result Comment: For patients on eltrombopag therapy, use of Dimension Frazer TBIL is not recommended. Performed By: #### L 500.4050, L501.2300, L100.0100, L501.5200, L501.9520 #### [facility] [address] [place], [address] BUN/CRE 9.9 RATIO Low 10-20 [facility] Comment on above: Performed By: #### L 500.4050, L501.2300, L100.0100, L501.5200, L501.9520 #### [facility] [address] [place], [address] CA,Total 8.3 mg/dL Low 8.5-10.1 [facility] Comment on above: Performed By: #### L 500.4050, L501.2300, L100.0100, L501.5200, L501.9520 #### [facility] [address] [place], [address] Chloride [Moles/Vol] 104 mmol/L Normal 98-107 [facility] Comment on above: Performed By: #### L 500.4050, L501.2300, L100.0100, L501.5200, L501.9520 #### [facility] [address] [place], [address] CO2 [Moles/Vol] 28.0 mmol/L Normal 21.0-32.0 [facility] Comment on above: Performed By: #### L 500.4050, L501.2300, L100.0100, L501.5200, L501.9520 #### [facility] [address] [place], [address] Creatinine [Mass/Vol] 3.43 mg/dL High 0.70-1.30 [facility] Comment on above: Result Comment: The validity of the calculated GFR GFRAA in patients over 70 years has not been determined. Clinical correlation is essential. Performed By: #### L 500.4050, L501.2300, L100.0100, L501.5200, L501.9520 #### [facility] [address] [place], [address] ECRCL 23.15 ml/min Normal [facility] Comment on above: Performed By: #### L 500.4050, L501.2300, L100.0100, L501.5200, L501.9520 #### [facility] [address] [place], [address] EST GFR - AA 23 mL/min Low >60 [facility] Comment on above: Result Comment: Afri can [place] GFR Calc Performed By: #### L 500.4050, L501.2300, L100.0100, L501.5200, L501.9520 #### [facility] [address] [place], [address] GAP 7 Normal 5-15 [facility] Comment on above: Performed By: #### L 500.4050, L501.2300, L100.0100, L501.5200, L501.9520 #### [facility] [address] [place], [address] GFR/1.73 sq M.predicted among non-blacks MDRD (S/P/Bld) [Vol rate/Area] 19 mL/min/{1.73_m2} Low >60 [facility] Comment on above: Result Comment: Non- GFR Calc Performed By: #### L 500.4050, L501.2300, L100.0100, L501.5200, L501.9520 #### [facility] [address] [place], [address] Globulin (S) [Mass/Vol] 3.4 g/dL Normal 2.2-4.2 [facility] Comment on above: Performed By: #### L 500.4050, L501.2300, L100.0100, L501.5200, L501.9520 #### [facility] [address] [place], [address] Glucose [Mass/Vol] 85 mg/dL Normal 74-106 [facility] Comment on above: Performed By: #### L 500.4050, L501.2300, L100.0100, L501.5200, L501.9520 #### [facility] [address] [place], [address] Potassium [Moles/Vol] 4.4 mmol/L Normal 3.5-5.1 [facility] Comment on above: Performed By: #### L 500.4050, L501.2300, L100.0100, L501.5200, L501.9520 #### [facility] [address] [place], [address] Sodium [Moles/Vol] 139 mmol/L Normal 136-145 [facility] Comment on above: Performed By: #### L 500.4050, L501.2300, L100.0100, L501.5200, L501.9520 #### [facility] [address] [place], [address] T PROT 5.8 g/dL Low 6.4-8.2 [facility] Comment on above: Performed By: #### L 500.4050, L501.2300, L100.0100, L501.5200, L501.9520 #### [facility] [address] [place], [address] Urea nitrogen [Mass/Vol] 34 mg/dL High 10-24 [facility] Comment on above: Performed By: #### L 500.4050, L501.2300, L100.0100, L501.5200, L501.9520 #### [facility] [address] [place], [address] Consultation - Cardiologyon 02-15-2024 Consultation - Cardiology [facility] Medical Records Department [address] [place] [address] Consultation - Cardiology 02/15/24824 MR#: [id number] Acct: [id number] Name: JACOB LANDA Rep #: [id number] : 1955 68 From: Trinh Briones MD PCP: Dr. Yaw Singh MD Status:ADM IN Location: [place] [address] Pt seen evaluated w/DEVYN. I personally interviewed exam the pt. I was involved in all aspects of pt's orders, interpretation of results treatment I independently reviewed all the record of this patient including the EKG current lab result imaging studies with echocardiogram I formulated cardiac care plan as per midlevel note and recommendation. Will continue to monitor and follow-up clinically. 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 Assessment Plan Assessment/Plan (1) Preoperative evaluation to rule out surgical contraindication: (2) History of coronary artery stent placement: (3) History of aortic valve replacement: (4) H/O coronary artery bypass surgery: (5) Hyperlipidemia: QUALIFIERS: Hyperlipidemia type: unspecified Qualified Code(s): E78.5 - Hyperlipidemia, unspecified PLAN: Plan * Echocardiogram demonstrated preserved ejection fraction. Patient had a stress test in 2020 that was negative for ischemia. From a cardiac standpoint feel that he can undergo surgery. . Do not feel that any additional testing needs to be done * In regards to his coronary artery disease we will continue with his metoprolol. Will also continue with his Zetia and his statin.. HPI Consult Data Date of Consult: 02/15/24 HPI Narrative HPI Narrative: JACOB LANDA, is a 68 M who presented To [facility] emergency room on 02/14/2024 with left hip pain. Hip x-ray demonstrated mildly impacted left femoral subcapital fracture. We were asked to see patient for a preoperative assessment. Patient was last seen in our office in November 2022. He has a history of coronary artery disease with bypass surgery in 2002. In 2018 he had a non-STEMI and underwent a heart catheterization at that an outside hospital. Heart catheterization demonstrated patent left internal mammary artery to the left anterior descending artery, and occluded right internal mammary artery to the ramus intermedius, saphenous vein graft to the circumflex artery which was patent and the saphenous vein graft would of the second obtuse marginal branch to the LAD and diagonal with high-grade distal graft disease. He underwent successful stenting of the distal saphenous vein graft to the LAD diagonal with a 3.5 x 18 mm stent. He also has a history of hypertension and hyperlipidemia as well as aortic valve disease which is moderately severe with a peak gradient of 58 mmHg and a mean gradient of 36 mmHg with a valve area of 0.9 cm???. He was scheduled for and underwent a TAVR procedure with a 26 mm Vilma S3 valve on 03/03/2019. His most recent echocardiogram in January of 2021 demonstrated an ejection fraction of 55 to 60%, normal LV systolic function, mild LVH, grade 1 diastolic dysfunction, normal-appearing bioprosthetic aortic valve. Mean gradient of 12.2. Stress test in June 2020 demonstrated normal exercise myocardial perfusion test at a moderate workload with no evidence of ischemia. In October 2023 patient was admitted to [facility] with sepsis secondary to acute cystitis and bacteremia from Streptococcus. He did have acute kidney injury secondary to ATN and underwent a renal biopsy. Patient has been on dialysis since that time. From a cardiac standpoint he is doing well. He does not have any chest pain, worsening shortness of breath, palpitations, lightheadedness, dizziness, syncopal episodes. He does not have any lower extremity edema. He is still able to urinate. [facility] Medical History Wears glasses Cancer Cancer Pressure ulcer History of renal dialysis History of renal disease Injury of back History of GI bleed Gastric reflux Shortness of breath on exertion History of stress test History of echocardiogram Cardiology follow-up encounter Thrombus of venous dialysis catheter ESRD (end stage renal disease) on dialysis Acute respiratory insufficiency Medical non-compliance Acute exacerbation of chronic heart failure Chronic kidney disease (CKD) Pleural effusion Dyspnea Acute kidney injury Adenocarcinoma of esophagus LEELA (acute kidney injury) Non-smoker Esophageal carcinoma Atherosclerosis of coronary artery of [place] heart without angina pectoris 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 Essential (primary) hypertension Non-rheumatic aortic stenos (more content not included)... Normal [facility] Consultation - Nephrologyon 02-15-2024 Consultation - Nephrology [facility] Medical Records Department [address] [place] [address] Consultation - Nephrology 02/15/24 1427 MR#: [id number] Acct: [id number] Name: JACOB LANDA Rep #: [id number] : 1955 68 From: Gaudencio Greenberg MD PCP: Dr. Yaw Singh MD Status:ADM IN Location: [place] [id number] Assessment Plan Assessment/Plan (1) End stage renal disease on dialysis: PLAN: Plan Acute renal failure. On hemodialysis. Seen on dialysis today. Doing well so far. Urine output has improved. Creatinine about 3 and half. Will check 24-hour urine collection as outpatient. HPI Consult Data Date of Consult: 02/15/24 HPI Narrative Reason for Consultation: LEELA on HD HPI Narrative: JACOB LANDA, is a 68 M who presents to hospital with hip fracture. renal consulted in view of LEELA. He was recently admitted here, started on dialysis due to ATN. Urine output has been somewhat better recently. Came in with hip fracture, scheduled to go to surgery later today. [facility] Medical History Wears glasses Cancer Cancer Pressure ulcer History of renal dialysis History of renal disease Injury of back History of GI bleed Gastric reflux Shortness of breath on exertion History of stress test History of echocardiogram Cardiology follow-up encounter Thrombus of venous dialysis catheter ESRD (end stage renal disease) on dialysis Acute respiratory insufficiency Medical non-compliance Acute exacerbation of chronic heart failure Chronic kidney disease (CKD) Pleural effusion Dyspnea Acute kidney injury Adenocarcinoma of esophagus LEELA (acute kidney injury) Non-smoker Esophageal carcinoma Atherosclerosis of coronary artery of [place] heart without angina pectoris 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 Essential (primary) hypertension Non-rheumatic aortic stenosis Syncope and collapse Hyperlipidemia Atherosclerotic heart disease of [place] coronary artery with other forms of angina pectoris Encounter for long-term current use of high risk medication abnormal stress test Angina pectoris Exertional chest pain URI (upper respiratory infection) Home Medications ???Medication ???Instructions ???Recorded ???Last Taken ???Type atorvastatin 80 mg tablet 80 mg PO QHS CHOLESTEROL #90 tabs 05/15/22 12/24/23 Rx ezetimibe 10 mg tablet 10 mg PO DAILY CHOLESTEROL #90 tabs 05/15/22 12/24/23 Rx acetaminophen 325 mg tablet 650 mg (2 x 325 mg) PO Q6H PRN PRN 10/25/23 Unknown Rx Pain 1-10 Or Fever >100.7 #0 tabs melatonin 3 mg tablet 3 mg PO QHS PRN PRN Insomnia #0 10/25/23 12/24/23 Rx tabs metoprolol tartrate 25 mg tablet 25 mg PO BID #0 tabs 10/25/23 12/24/23 Rx pantoprazole 40 mg tablet,delayed 40 mg PO BID #0 tabs 10/25/23 12/24/23 Rx release ferrous sulfate 325 mg (65 mg 325 mg PO DAILY #90 tabs 11/20/23 12/24/23 Rx iron) tablet polyethylene glycol 3350 17 17 g PO DAILY PRN constipation 12/04/23 Unknown History gram/dose oral powder (Miralax) ondansetron 4 mg disintegrating 4 mg PO Q8H PRN PRN nausea and 12/25/23 12/25/23 08:00 History tablet vomiting fluticasone propionate 50 1 spray intranasal DAILY 02/14/24 Unknown History mcg/actuation nasal spray,suspension nitroglycerin 0.4 mg sublingual 0.4 mg sublingual PRN PRN angina 02/14/24 Unknown History tablet Allergy/AdvReac Type Severity Reaction Status Date / Time No Known Allergies Allergy Verified 02/14/24 18:09 Family History Father Heart disease Myocardial infarction Hypertension Brother Hypertension Sister Heart disease Myocardial infarction Surgical History History of cardiac catheterization History of esophagogastroduodenoscopy (EGD) Hx of surgical procedure History of aortic valve replacement (03/03/19) History of coronary artery stent placement (12/31/18) H/O coronary artery bypass surgery (09/18/02) History of tonsillectomy History of hernia repair Social History Smoking Status: Never smoker alcohol intake: never substance use type: does not use caffeine: No what type of physical activity do you participate in: walking frequency: daily ROS ROS Narrative negative except above Physical Exam Narrative Alert awake oriented x 3 no obvious distress no pallor no icterus no JVD s1s2 no murmurs lungs clear abdomen soft no organomegaly no edema no cyanosis Lab / Micro Data 02/15/24 06:30 02/14/24 23:30 Labs: Laboratory Results - last 24 hr 02/14/24 23:30: WBC 5.6, RBC 4.4 (more content not included)... Normal [facility] Consultation - Orthopedicson 02-15-2024 Consultation - Orthopedics [facility] Medical Records Department [address] [place] [address] Consultation - Orthopedics 02/15/24 1605 MR#: [id number] Acct: [id number] Name: JACOB LANDA Rep #: [id number] : 1955 68 From: Jerod Marc MD PCP: Dr. Yaw Singh MD Status:ADM IN [facility] H[facility] Consult Data Date of Consult: 02/15/24 HPI Narrative Reason for Consultation: Left hip pain HPI Narrative: JACOB LANDA, is a 68 M with history of renal failure and has been on dialysis since October. Also has a history of coronary artery disease. Who presents left hip pain. Patient notes he was trying to get his wheelchair out of his vehicle when he lost his balance and slammed up against his door with his left hip. He did not fall directly to the ground. This injury occurred on 02/11/2020 4 in the evening. He walked on it for a day and a half and then began had progressively worse pain in his groin and thigh. He has some numbness over the anterior thigh. No numbness extending down his leg. Due to increased pain and difficulty with ambulation he presented to Emergency Department. Emergency department found to have a subcapital femoral neck fracture. He was admitted for surgery overnight. He was seen by cardiology and nephrology and cleared for surgery throughout the day today. Patient reports 5 out of 10 pain with motion better with immobilization. Unable to bear weight. He lives at home with his in a 1000 square foot area prepared for him and his attached to his daughter's home. They do their own cooking cleaning and ADLs. Patient denies any antecedent hip pain. Patient denies a history of DVTs. [facility] Medical History Wears glasses Cancer Cancer Pressure ulcer History of renal dialysis History of renal disease Injury of back History of GI bleed Gastric reflux Shortness of breath on exertion History of stress test History of echocardiogram Cardiology follow-up encounter Thrombus of venous dialysis catheter ESRD (end stage renal disease) on dialysis Acute respiratory insufficiency Medical non-compliance Acute exacerbation of chronic heart failure Chronic kidney disease (CKD) Pleural effusion Dyspnea Acute kidney injury Adenocarcinoma of esophagus LEELA (acute kidney injury) Non-smoker Esophageal carcinoma Atherosclerosis of coronary artery of [place] heart without angina pectoris 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 Essential (primary) hypertension Non-rheumatic aortic stenosis Syncope and collapse Hyperlipidemia Atherosclerotic heart disease of [place] coronary artery with other forms of angina pectoris Encounter for long-term current use of high risk medication abnormal stress test Angina pectoris Exertional chest pain URI (upper respiratory infection) Home Medications ???Medication ???Instructions ???Recorded ???Last Taken ???Type atorvastatin 80 mg tablet 80 mg PO QHS CHOLESTEROL #90 tabs 05/15/22 12/24/23 Rx ezetimibe 10 mg tablet 10 mg PO DAILY CHOLESTEROL #90 tabs 05/15/22 12/24/23 Rx acetaminophen 325 mg tablet 650 mg (2 x 325 mg) PO Q6H PRN PRN 10/25/23 Unknown Rx Pain 1-10 Or Fever >100.7 #0 tabs melatonin 3 mg tablet 3 mg PO QHS PRN PRN Insomnia #0 10/25/23 12/24/23 Rx tabs metoprolol tartrate 25 mg tablet 25 mg PO BID #0 tabs 10/25/23 12/24/23 Rx pantoprazole 40 mg tablet,delayed 40 mg PO BID #0 tabs 10/25/23 12/24/23 Rx release ferrous sulfate 325 mg (65 mg 325 mg PO DAILY #90 tabs 11/20/23 12/24/23 Rx iron) tablet polyethylene glycol 3350 17 17 g PO DAILY PRN constipation 12/04/23 Unknown History gram/dose oral powder (Miralax) ondansetron 4 mg disintegrating 4 mg PO Q8H PRN PRN nausea and 12/25/23 12/25/23 08:00 History tablet vomiting fluticasone propionate 50 1 spray intranasal DAILY 02/14/24 Unknown History mcg/actuation nasal spray,suspension nitroglycerin 0.4 mg sublingual 0.4 mg sublingual PRN PRN angina 02/14/24 Unknown History tablet Allergy/AdvReac Type Severity Reaction Status Date / Time No Known Allergies Allergy Verified 02/15/24 15:32 Family History Father Heart disease Myocardial infarction Hypertension Brother Hypertension Sister Heart disease Myocardial infarction Surgical History History of cardiac catheterization History of esophagogastroduodenoscopy (EGD) Hx of surgical procedure History of aortic valve replacement (03/03/19) History of coronary artery stent placement (12/31/18) H/O coronary artery bypass surgery (09/18/02) History of tonsillectomy History of hernia (more content not included)... Normal [facility] Decalcification bone/plaqueo n 02-15-2024 Decalcification bone/plaque Patient Age/Sex Location Account Attending Physician SYEDAJACOB TATE 68/M [facility] [id number] Dr. Gayatri Roy, DO Specimen: [id number] Received: 02/18/24 Status: ORAPamela Alberto Num: [id number] Spec Type: TOTAL HIP Subm Dr: Dr. Jerod Marc MD HEADER OPERATION: Hemiarthroplasty, hip PRE-OP DIAGNOSIS: Left hip fracture TISSUE SUBMITTED: Bone and tissue left hip MICROSCOPIC DIAGNOSIS Bone and tissue of left hip, total hip resection: Organizing fracture callus. AM: 02/21/2024 MICROSCOPIC DESCRIPTION Slides are reviewed. GROSS DESCRIPTION Received is one container labeled with the patient's name and designated femoral head and tissue." The specimen consists of a fitzgerald femoral head measuring 5.0 x 5.0 x 4.5 cm. The articular surface is smooth. Resection margin is irregular and hemorrhagic. Also present in the specimen container are multiple detached pieces of bone measuring in aggregate 5.5 x 5.0 x 1.6 cm. Also present in the container is a piece of soft tissue is noted attached to the femoral head measuring 2.5 x 1.0 x 0.4 cm. Storage Garage Manager sections are submitted in three cassettes as follows: 1 - soft tissue, entirely submitted, 2 - detached pieces of bone after decalcification, 3 - femoral head after decalcification. / 02/18/2024 TC:[address] [facility]: [id number], [address] Patient Age/Sex Location Account Attending Physician JACOB LANDA 68/M [facility] [id number] Dr. Gayatri Roy DO Signed (signature on file) Dr. Scott Adame DO 02/21/24 1135 Normal [facility] Comment on above: Performed By: #### P DEC ####[facility] [address] [place], [place], [address] Hip Min 2 Views (Portable)on 02-15-2024 Hip Min 2 Views (Portable) [facility] Imaging Services [address] [place] [address] Hip Min 2 Views (Portable) MR#: [id number] Acct: [id number] Name: JACOB LANDA Rep #: [id number] : 1955 M 68 From: Maegan Gamble MD PCP: Dr. Yaw Singh MD Status: ADM IN Study: Hip Min 2 Views (Portable) Date of Exam: 02/14 Exam# [id number] Ordering Dr: eJrod Marc MD [id number] EXAM: XR LEFT HIP WITH PELVIS WHEN PERFORMED, 2 OR 3 VIEWS CLINICAL INDICATION: Post Op -- AP both hips on single gissell/lateral of op hip PACU TECHNIQUE: 1 view of the left hip, 2 views of the pelvis, 1 mildly rotated to the left. COMPARISON: February 14, 2024 preop exam. FINDINGS: BONES/JOINTS: Mildly widened [place] left acetabulum, left femoral head prosthesis appears adequately positioned. The pelvis appears to be demineralized. SOFT TISSUES: Mild soft tissue swelling and slight scattered gas. RAD/Hip Min 2 Views (Portable) IMPRESSION: Well-positioned left femoral head prosthesis. Postop soft tissue changes. Electronically Signed: Maegan Gamble MD at 19:09 EST , CC: Dr. Yaw Singh MD; Dr. Jerod Marc MD Gunner'S Mate: Signed Normal [facility] Hip Min 2 Views (Portable) [facility] Imaging Services [address] [place], [place] [id number] Hip Min 2 Views (Portable) MR#: [id number] Acct: [id number] Name: JACOB LANDA Rep #: [id number] : 1955 M 68 From: Maegan Gamble MD PCP: Dr. Yaw Singh MD Status: ADM IN Study: Hip Min 2 Views (Portable) Date of Exam: 02/14 Exam# [id number] Ordering Dr: Jerod Marc MD [id number] Exam: XR Hip Unilateral with Pelvis when performed; intraprocedural exam. Comparison: Subsequent 3 views of the left hip, postoperative, and prior 3 views of the left hip February 09, 2024 showing oblique left femoral neck fracture with slight external rotation of the head. History: ANTERIOR HIP TECHNIQUE: 6 fluoroscopic spot views. FINDINGS: Well-positioned left femoral head-neck prosthesis and well-positioned intramedullary component. Mildly widened and minimally shallow left acetabulum. RAD/Hip Min 2 Views (Portable) IMPRESSION: Intraprocedural views. Electronically Signed: Maegan Gamble MD at 2:43 EST , CC: Dr. Yaw Singh MD; Dr. Jerod Marc MD Gunner'S Mate: Signed Normal [facility] Liver Profileon 02-15-2024 Albumin [Mass/Vol] 2.4 g/dL Low 3.2-5.0 [facility] Comment on above: Order Comment: FOR M ORNING LABS PER DOUG Performed By: #### L 300.3900, L500.3400, L300.4310 #### [facility] Laboratory [address] [place], [address] ALK P 105 U/L Normal 45-117 [facility] Comment on above: Order Comment: FOR M ORNING LABS PER DOUG Performed By: #### L 300.3900, L500.3400, L300.4310 #### [facility] Laboratory [address] [place], [address] ALT [Catalytic activity/Vol] 37 U/L Normal 16-61 [facility] Comment on above: Order Comment: FOR M ORNING LABS PER DOUG Performed By: #### L 300.3900, L500.3400, L300.4310 #### [facility] Laboratory [address] [place], [address] AST [Catalytic activity/Vol] 15 U/L Normal 15-37 [facility] Comment on above: Order Comment: FOR M ORNING LABS PER DOUG Performed By: #### L 300.3900, L500.3400, L300.4310 #### [facility] Laboratory [address] [place], [address] Bilirubin [Mass/Vol] 0.60 mg/dL Normal 0.20-1.00 [facility] Comment on above: Order Comment: FOR M ORNING LABS PER DOUG Result Comment: For patients on eltrombopag therapy, use of Dimension Frazer TBIL is not recommended. Performed By: #### L 300.3900, L500.3400, L300.4310 #### [facility] Laboratory [address] [place], [address] Bilirubin.direct [Mass/Vol] 0.21 mg/dL Normal 0.00-0.30 [facility] Comment on above: Order Comment: FOR M ORNING LABS PER DOUG Performed By: #### L 300.3900, L500.3400, L300.4310 #### [facility] Laboratory [address] [place], [address] Globulin (S) [Mass/Vol] 3.9 g/dL Normal 2.2-4.2 [facility] Comment on above: Order Comment: FOR M ORNING LABS PER DOUG Performed By: #### L 300.3900, L500.3400, L300.4310 #### [facility] Laboratory [address] [place], [address] T PROT 6.3 g/dL Low 6.4-8.2 [facility] Comment on above: Order Comment: FOR M SALOME LABS PER DOUG Performed By: #### L 300.3900, L500.3400, L300.4310 #### [facility] Laboratory [address] [place], [address] MR/POSTOP.ANEon 02-15-2024 MR/POSTOP.ANE [facility] Medical Records Department [address] [place] [address] Anesthesia Postop Eval I 02/15/241806 MR#: [id number] Acct: [id number] Name: JACOB LANDA Rep #: [id number] : 1955 68 From: Cameron Rosas MD PCP: Dr. Yaw Singh MD Status:ADM IN Y Race: C Location: [place] [address] Anesthesia: Postop Eval I Current Vital Signs Temperature: 98.6 F Pulse Rate: 118 Blood Pressure: 114/73 Respiratory Rate: 16 Pulse Ox: 95 Assessment Airway patent: Yes Spontaneous unlabored respirations: Yes nausea: No Vomiting: No Anesthesia Complication: No Fluid Hydration Crystalloid volume administer (ml): 300 Total IV fluid infused: 300 Progress Note Anesthesia document: Postop Eval 1 completed: Yes 02/15/241807 Date Cameron Rosas MD Cosigner Signature: Date CC: Signed Normal [facility] MR/ERULWLCA2yx 02-15-2024 MR/POSTOPAN2 [facility] Medical Records Department [address] [place] [address] Anesthesia Postop Eval II 02/15/241807 MR#: [id number] Acct: [id number] Name: JACOB LANDA Rep #: [id number] : 1955 68 From: Cameron Rosas MD PCP: Dr. Yaw Singh MD Status:ADM IN Y Race: C Location: [place] [address] Anesthesia Postop Eval I Sum Postop Eval Completion status Anesthesia document: Postop Eval 1 completed: Yes Anesthesia Postop Eval I Summary Anesthesia Postop Eval I Summary: Anesthesia Postop Eval I: Assessment Summary Airway patent Yes 02/15/24 18:08 Spontaneous unlabored Yes 02/15/24 18:08 respirations Mental status nausea No 02/15/24 18:08 Vomiting No 02/15/24 18:08 Anesthesia Postop Eval I: Fluid Summary Crystalloid volume administer 300 02/15/24 18:08 (ml) Colloids volume administered ( ml) Blood Product volume administered (ml) Total IV fluid infused 300 02/15/24 18:08 Anesthesia Postop Eval I: Summary Notes Anesthesia Complication No 02/15/24 18:08 Anesthesia Complication Comment: Post-operative progress note Anesthesia: Postop Eval II Evaluation Mental status: Awake Pain Level: 1 nausea: No Vomiting: No Complications Anesthesia Complication: No 02/15/241807 Date Cameron Rosas MD Cosigner Signature: Date CC: Signed Normal [facility] Magnesiumon 02-15-2024 Magnesium [Mass/Vol] 2.2 mg/dL Normal 1.6-2.6 [facility] Comment on above: Performed By: #### L 500.4050, L501.2300, L100.0100, L501.5200, L501.9520 ####[facility] [address] [place], [address] Operative Reporton 4 Operative Report [facility] Medical Records Department [address] [place] [address] Operative Report 02/15/24 1730 MR#: [id number] Acct: [id number] Name: JACOB LANDA Rep #: [id number] : 1955 68 From: Jerod Marc MD PCP: Dr. Yaw Singh MD Status:ADM IN [facility] Operative Report (Standard) Operative Information Surgery/Procedure Performed: Left hip hemiarthroplasty Surgeon: Jerod Marc Date of Procedure: 02/15/24 Procedure Start Time: 16:32 Procedure Stop Time: 17:50 Pre-Operative Diagnosis: Left subcapital femoral neck fracture Post-Operative Diagnosis: Left subcapital femoral neck fracture Select all DRAINS/GRAFTS/IMPLANTS that apply: Prosthetic device Prosthetic device details: 1. Aly insignia high offset size 6 femoral stem 2. Aly cobalt-chromium Unitrax femoral head 50 mm with standard sleeve Type of Anesthesia: General Special Medications: 2 g Ancef, 2 g TXA lavage prior to closure, , joint cocktail (5 mg Duramorph, 30 mL of 0.5% Ropivicaine, 1000 units of epinephrine, 30 mg of Toradol) Estimated Blood Loss: 300 Fluids Replaced: 500 mL crystalloid Specimen collected: Yes Description of specimen(s) removed: Left femoral head Description of surgery: Procedure: On the date of procedure the patient's L hip was marked in the preoperative area. Patient was then taken back to the operating room where anesthesia assumed control of the C-spine and airway and administered anesthetic. Patient was transferred to the operating table and placed in the supine position. The hips were placed the break of the bed and a bump was placed in the sacrum. The L lower extremity was then prepped out in a sterile fashion using chlorhexidine while the surgeon scrubbed. Upon reentering the room the L lower extremity was draped in the standard orthopedic fashion and the incision was marked. A timeout was called and everyone agreed upon the side, the site, the procedure be performed, antibody given, and patient's identity. At this time incision was made through skin, subcutaneous tissue, and fat down to fascia. The fascia was then incised and the TFL was retracted laterally. A retractor was placed on the lateral border of the femoral neck. Attention was directed to the inferior portion of the approach and all crossing vessels were identified and appropriately coagulated. A retractor was then placed on the medial portion of the femoral neck. The anterior capsule was then cleared of all soft tissue and then H shaped capsulotomy was made. The retractors were then placed inside the capsule. The femoral neck was identified and a cleanup cut was made. At this time a power corkscrew was used to remove the femoral head. The femoral head was measures and a 50 mm bipolar component was selected. Soft tissue releases on the medial and lateral femoral neck were appropriately done, the leg was externally rotated and lateralized. A Gonzalez retractor was placed medially and proximally to the greater trochanter this allowed appropriate visualization and exposure of the femoral canal. Rongeour was then used to remove excess lateral bone. A canal finder and entry broach were used to open the proximal canal. Once we verified we were down the femoral canal we subsequently broached up to a size 6 femur. The appropriate neck was placed in the previously selected head was trialed with a 0mm neck. Traction was pulled and the hip was reduced with internal rotation. Once it was appropriately reduced and stability was checked. There was minimal shuck, equal leg lengths and appropriate stability with hyperextension and external rotation as well as with 90??? flexion and internal rotation. The trial components were then dislocated the proximal femur was again exposed and the components were removed from the wound. The final components were verified and opened. The wound was copiously irrigated out with normal saline. The acetabulum was checked for any residual debris. The final components were placed and impacted. Traction and internal rotation were again used to reduce the hip. After adequate reduction the hip remained stable with appropriate leg lengths. The wound was then copiously irrigated with normal saline once more, and hemostasis was obtained. Closure was then done using #1 Vicryl runner to close the fascia. A 2-0 Vicryl runner was used to close the subcutaneous skin. A 2-0 nylon sutures were used for final skin closure. A Silverlon dressing was placed. Patient was awakened by anesthesia and transferred to the [facility]. Patient was then transferred to the PACU for recovery. Postoperative plan: Patient will get 24 hours postop antibiotics. Patient will get in-house physical therapy and will be weight-bear as tolerated. Patient will follow up in office in 2 weeks for a wound check and x- rays. Aspirin 81 mg p.o. twice daily for DVT p (more content not included)... Normal [facility] Partial Thromboplast Timeon 02-15-2024 aPTT Coag (Bld) [Time] 32.2 s Normal 24.1-36.2 [facility] Comment on above: Performed By: #### L 300.3900, L500.3400, L300.4310 #### [facility] Laboratory [address] [place], [address] Phosphoruson 02-15-2024 Phosphate [Mass/Vol] 4.9 mg/dL Normal 2.5-4.9 [facility] Comment on above: Performed By: #### L 500.4050, L501.2300, L100.0100, L501.5200, L501.9520 #### [facility] Laboratory [address] [place], [address] Prothrombin Time w/INRon INR Coag (PPP) [Relative time] 1.5 {INR} Normal [facility] Comment on above: Performed By: #### L 300.3900, L500.3400, L300.4310 #### [facility] Laboratory [address] [place], [address] PT Coag (PPP) [Time] 18.0 s High 11.7-14.9 [facility] Comment on above: Performed By: #### L 300.3900, L500.3400, L300.4310 #### [facility] Laboratory [address] [place], [address] Thyroid Stim Hormone (TSH)on 02-15-2024 TSH 2.630 uIU/mL Normal 0.358-3.740 [facility] Comment on above: Performed By: #### L 500.4050, L501.2300, L100.0100, L501.5200, L501.9520 ####[facility] [address] [place], [place], [id number] Type AND Screenon 02-15-2024 ABO and Rh group Nom (Bld) Blood group A Rh(D) positive Normal [facility] Comment on above: Order Comment: SFRAC TURED HIP Performed By: #### B TS ####[facility] [address] [place], [place], [id number] XR CHEST 2V FRONTAL/LATon XR CHEST 2V FRONTAL/LAT * * *Final Report* * * DATE OF EXAM: Jan 31 2024 10:30AM [id number] - XR CHEST 2V FRONTAL/LAT / PROCEDURE REASON: Pleural effusion * * * * Physician Interpretation * * * * EXAMINATION: CHEST RADIOGRAPH (2 VIEW FRONTAL and LATERAL) CLINICAL HISTORY: Pleural effusion MQ: [id number] EXAM DATE/TIME: 01/31/2024 10:30 AM COMPARISON: 09/13/2023 RESULT: Lines, tubes, and devices: Left total central venous catheter with the tip at the expected position of the distal SVC. Lungs and pleura: Moderate left and small right pleural effusions with bibasilar consolidations/atelectasis , similar to the prior exam. No evidence of pneumothorax. Cardiomediastinal silhouette: Stable cardiomediastinal silhouette. TAVR noted. Median sternotomy wires are present. Bones and soft tissues: Unremarkable. IMPRESSION: Moderate left and small right pleural effusions with bibasilar consolidations/atelectasis , similar to the prior study. Gunner'S Mate: MORGAN Transcribe Date/Time: Feb 02 2024 7:06P Dictated by : ALICE GARICA MD This examination was interpreted and the report reviewed and electronically signed by: ALICE GARCIA MD on Feb 02 2024 7:08PM EST [id number] Normal [facility] No Panel Informationon 01-23 IMPRESSION: Esophagectomy with gastric pull-through. Slow emptying of the stomach. Reflux into the esophagus. Delayed small bowel transit time of 4.5 hours. Gunner'S Mate: MORGAN Transcribe Date/Time: Jan 24 2024 3:15P Dictated by : ELIAS CALVILLO MD This examination was interpreted and the report reviewed and electronically signed by: ELIAS CALVILLO MD on Jan 24 2024 3:22PM EST [facility] [email or web address] Radiology Study observation (narrative) [facility] No Panel InformationOrdered By: [facility] Provider on 01-24-2024 [facility] RF Gastrointestinal tract up per Views W barium contrast Renetta 01-24-2024 * * *Final Report* * * DATE OF EXAM: Jan 24 2024 1:22PM AWX [id number] - XR UPPER GI SINGLE CONTRAST / PROCEDURE REASON: multiple diagnoses * * * * Physician Interpretation * * * * EXAM: XR UPPER GI SINGLE CONTRAST, XR GI SMALL BOWEL FOLLOW-THRU EXAM DATE: 01/24/2024 1:22 PM CLINICAL HISTORY: Abdominal pain. History of esophagectomy with gastric pull-through for esophageal cancer COMPARISON: Esophagram 09/14/2020, CT chest abdomen pelvis 08/03/2023 TECHNIQUE: A double contrast upper GI examination was performed, followed by a small bowel follow through with sequential radiographs. The patient ingested 4 mL mL of EZGAS, 120 mL EZHD, and 355 mL EZPAQUE. Slava Newman RPA performed the exam. 57 images were obtained Total Fluoroscopy Time: 2:51 min:sec RESULT: There are postsurgical changes of esophagectomy with gastric pull-through. No severe stricture was seen but there was slow emptying of the stomach at the diaphragm with probable retained food in the stomach. There was reflux into the esophagus. Small bowel was nondilated and appears unremarkable. There was contrast present within the colon and cecum at 4.5 hours. The terminal ileum appeared unremarkable. [place] [facility] Provider, [facility] - 01/24/2024 * * *Final Report* * * DATE OF EXAM: Jan 24 2024 1:22PM [id number] - XR UPPER GI SINGLE CONTRAST / PROCEDURE REASON: multiple diagnoses * * * * Physician Interpretation * * * * EXAM: XR UPPER GI SINGLE CONTRAST, XR GI SMALL BOWEL FOLLOW-THRU EXAM DATE: 01/24/2024 1:22 PM CLINICAL HISTORY: Abdominal pain. History of esophagectomy with gastric pull-through for esophageal cancer COMPARISON: Esophagram 09/14/2020, CT chest abdomen pelvis 08/03/2023 TECHNIQUE: A double contrast upper GI examination was performed, followed by a small bowel follow through with sequential radiographs. The patient ingested 4 mL mL of EZGAS, 120 mL EZHD, and 355 mL EZPAQUE. Slava Newman RPA performed the exam. 57 images were obtained Total Fluoroscopy Time: 2:51 min:sec RESULT: There are postsurgical changes of esophagectomy with gastric pull-through. No severe stricture was seen but there was slow emptying of the stomach at the diaphragm with probable retained food in the stomach. There was reflux into the esophagus. Small bowel was nondilated and appears unremarkable. There was contrast present within the colon and cecum at 4.5 hours. The terminal ileum appeared unremarkable. IMPRESSION IMPRESSION: Esophagectomy with gastric pull-through. Slow emptying of the stomach. Reflux into the esophagus. Delayed small bowel transit time of 4.5 hours. [facility] Transcribe Date/Time: Jan 24 2024 3:15P Dictated by : ELIAS CALVILLO MD This examination was interpreted and the report reviewed and electronically signed by: ELIAS CALVILLO MD on Jan 24 2024 3:22PM [facility] Small bowel Diameter USon * * *Final Report* * * DATE OF EXAM: Jan 24 2024 1:24PM [id number] - XR GI SMALL BOWEL FOLLOW-THRU / PROCEDURE REASON: multiple diagnoses * * * * Physician Interpretation * * * * EXAM: XR UPPER GI SINGLE CONTRAST, XR GI SMALL BOWEL FOLLOW-THRU EXAM DATE: 01/24/2024 1:22 PM CLINICAL HISTORY: Abdominal pain. History of esophagectomy with gastric pull-through for esophageal cancer COMPARISON: Esophagram 09/14/2020, CT chest abdomen pelvis 08/03/2023 TECHNIQUE: A double contrast upper GI examination was performed, followed by a small bowel follow through with sequential radiographs. The patient ingested 4 mL mL of EZGAS, 120 mL EZHD, and 355 mL EZPAQUE. Slava Newman RPA performed the exam. 57 images were obtained Total Fluoroscopy Time: 2:51 min:sec RESULT: There are postsurgical changes of esophagectomy with gastric pull-through. No severe stricture was seen but there was slow emptying of the stomach at the diaphragm with probable retained food in the stomach. There was reflux into the esophagus. Small bowel was nondilated and appears unremarkable. There was contrast present within the colon and cecum at 4.5 hours. The terminal ileum appeared unremarkable. [place] [facility] Provider, [facility] - 01/24/2024 * * *Final Report* * * DATE OF EXAM: Jan 24 2024 1:24PM [id number] - XR GI SMALL BOWEL FOLLOW-THRU / PROCEDURE REASON: multiple diagnoses * * * * Physician Interpretation * * * * EXAM: XR UPPER GI SINGLE CONTRAST, XR GI SMALL BOWEL FOLLOW-THRU EXAM DATE: 01/24/2024 1:22 PM CLINICAL HISTORY: Abdominal pain. History of esophagectomy with gastric pull-through for esophageal cancer COMPARISON: Esophagram 09/14/2020, CT chest abdomen pelvis 08/03/2023 TECHNIQUE: A double contrast upper GI examination was performed, followed by a small bowel follow through with sequential radiographs. The patient ingested 4 mL mL of EZGAS, 120 mL EZHD, and 355 mL EZPAQUE. Slava Newman RPA performed the exam. 57 images were obtained Total Fluoroscopy Time: 2:51 min:sec RESULT: There are postsurgical changes of esophagectomy with gastric pull-through. No severe stricture was seen but there was slow emptying of the stomach at the diaphragm with probable retained food in the stomach. There was reflux into the esophagus. Small bowel was nondilated and appears unremarkable. There was contrast present within the colon and cecum at 4.5 hours. The terminal ileum appeared unremarkable. IMPRESSION IMPRESSION: Esophagectomy with gastric pull-through. Slow emptying of the stomach. Reflux into the esophagus. Delayed small bowel transit time of 4.5 hours. [facility] Transcribe Date/Time: Jan 24 2024 3:15P Dictated by : ELIAS CALVILLO MD This examination was interpreted and the report reviewed and electronically signed by: ELIAS CALVILLO MD on Jan 24 2024 3:22PM EST [facility] XR GI SMALL BOWEL FOLLOW-THR Uon 01-24-2024 XR GI SMALL BOWEL FOLLOW-THRU * * *Final Report* * * DATE OF EXAM: Jan 24 2024 1:24PM [id number] - XR GI SMALL BOWEL FOLLOW-THRU / PROCEDURE REASON: multiple diagnoses * * * * Physician Interpretation * * * * EXAM: XR UPPER GI SINGLE CONTRAST, XR GI SMALL BOWEL FOLLOW-THRU EXAM DATE: 01/24/2024 1:22 PM CLINICAL HISTORY: Abdominal pain. History of esophagectomy with gastric pull-through for esophageal cancer COMPARISON: Esophagram 09/14/2020, CT chest abdomen pelvis 08/03/2023 TECHNIQUE: A double contrast upper GI examination was performed, followed by a small bowel follow through with sequential radiographs. The patient ingested 4 mL mL of EZGAS, 120 mL EZHD, and 355 mL EZPAQUE. Slava Newman RPA performed the exam. 57 images were obtained Total Fluoroscopy Time: 2:51 min:sec RESULT: There are postsurgical changes of esophagectomy with gastric pull-through. No severe stricture was seen but there was slow emptying of the stomach at the diaphragm with probable retained food in the stomach. There was reflux into the esophagus. Small bowel was nondilated and appears unremarkable. There was contrast present within the colon and cecum at 4.5 hours. The terminal ileum appeared unremarkable. IMPRESSION: Esophagectomy with gastric pull-through. Slow emptying of the stomach. Reflux into the esophagus. Delayed small bowel transit time of 4.5 hours. Gunner'S Mate: [facility] Transcribe Date/Time: Jan 24 2024 3:15P Dictated by : ELIAS CALVILLO MD This examination was interpreted and the report reviewed and electronically signed by: ELIAS CALVILLO MD on Jan 24 2024 3:22PM EST [id number] Normal [facility] XR UPPER GI SINGLE CONTRASTo n 01-24-2024 XR UPPER GI SINGLE CONTRAST * * *Final Report* * * DATE OF EXAM: Jan 24 2024 1:22PM [id number] - XR UPPER GI SINGLE CONTRAST / PROCEDURE REASON: multiple diagnoses * * * * Physician Interpretation * * * * EXAM: XR UPPER GI SINGLE CONTRAST, XR GI SMALL BOWEL FOLLOW-THRU EXAM DATE: 01/24/2024 1:22 PM CLINICAL HISTORY: Abdominal pain. History of esophagectomy with gastric pull-through for esophageal cancer COMPARISON: Esophagram 09/14/2020, CT chest abdomen pelvis 08/03/2023 TECHNIQUE: A double contrast upper GI examination was performed, followed by a small bowel follow through with sequential radiographs. The patient ingested 4 mL mL of EZGAS, 120 mL EZHD, and 355 mL EZPAQUE. Slava Newman RPA performed the exam. 57 images were obtained Total Fluoroscopy Time: 2:51 min:sec RESULT: There are postsurgical changes of esophagectomy with gastric pull-through. No severe stricture was seen but there was slow emptying of the stomach at the diaphragm with probable retained food in the stomach. There was reflux into the esophagus. Small bowel was nondilated and appears unremarkable. There was contrast present within the colon and cecum at 4.5 hours. The terminal ileum appeared unremarkable. IMPRESSION: Esophagectomy with gastric pull-through. Slow emptying of the stomach. Reflux into the esophagus. Delayed small bowel transit time of 4.5 hours. Gunner'S Mate: [facility] Transcribe Date/Time: Jan 24 2024 3:15P Dictated by : ELIAS CALVILLO MD This examination was interpreted and the report reviewed and electronically signed by: ELIAS CALVILLO MD on Jan 24 2024 3:22PM EST [id number] Normal [facility] CBC W Auto Differential pane l (Bld)on 01-15-2024 Anisocytosis Ql (Bld) Present [facility] Basophils (Bld) [#/Vol] 0.04 10*3/uL [facility] Basophils/100 WBC (Bld) 0.6 % [facility] Differential cell count method Nom (Bld) Auto [facility] Eosinophils (Bld) [#/Vol] 0.06 10*3/uL [facility] Eosinophils/100 WBC (Bld) 0.9 % [facility] Erythrocyte distribution width (RBC) [Ratio] 19.7 % High 11.5 - 15.0 % [facility] Hematocrit (Bld) [Volume fraction] 31.4 % Low 39.0 - 51.0 % [facility] Hemoglobin (Bld) [Mass/Vol] 9.5 g/dL Low 13.0 - 17.0 g/dL [facility] Immature granulocytes (Bld) [#/Vol] 0.06 10*3/[facility] Immature granulocytes/100 WBC (Bld) 0.9 % [facility] Interpretation and review of laboratory results Abnormal [facility] Lymphocytes (Bld) [#/Vol] 0.71 10*3/uL Low [facility] Lymphocytes/100 WBC (Bld) 11.1 % [facility] MCH (RBC) [Entitic mass] 27.1 pg 26.0 - 34.0 pg [facility] MCHC (RBC) [Mass/Vol] 30.3 g/dL Low 30.5 - 36.0 g/dL [facility] MCV (RBC) [Entitic vol] 89.5 fL 80.0 - 100.0 fL [facility] Monocytes (Bld) [#/Vol] 0.53 10*3/[facility]L [facility] Monocytes/100 WBC (Bld) 8.3 % [facility] Neutrophils (Bld) [#/Vol] 4.98 10*3/uL [facility] Neutrophils/100 WBC (Bld) 78.2 % [facility] Nucleated RBC (Bld) [#/Vol] 0.03 10*3/uL High [facility] Nucleated RBC/100 WBC (Bld) [Ratio] 0.5 % /100 WBC [facility] Ovalocytes LM Ql (Bld) Few [facility] Platelet mean volume (Bld) [Entitic vol] 9.7 fL 9.0 - 12.7 fL [facility] Platelets (Bld) [#/Vol] 188 10*3/uL [facility] Comment on above: No clot detected. Platelets Estimate (Bld) [#/Vol] Adequate [facility] Polychromasia LM Ql (Bld) Slight [facility] RBC (Bld) [#/Vol] 3.51 10*6/uL Low 4.20 - 6.0 0 m/uL [facility] RBC Fragments Few Abnormal None Seen [facility] Red Cell Morph Reviewed: see result s of individual morphologies [facility] WBC (Bld) [#/Vol] 6.38 10*3/uL [facility] This is an appended report. These results have been appended to a previously verified report. [facility] RETICULOCYTE COUNTon 024 Reticulocytes (Bld) [#/Vol] 0.133 10*3/uL High [facility] Reticulocytes (Bld) [#/Vol]o n 01-15-2024 Interpretation and review of laboratory results Abnormal [facility] Reticulocytes/100 RBC (Bld) 3.8 % High 0.4 - 2.0 % [facility] Basic metabolic 2000 panelon 10-05-2023 Anion gap [Moles/Vol] 9 mmol/L 8 - 15 mmol/L [facility] Calcium [Mass/Vol] 8.9 mg/dL 8.5 - 10. 2 mg/dL [facility] Chloride [Moles/Vol] 107 mmol/L 98 - 10 7 mmol/L [facility] CO2 [Moles/Vol] 25 mmol/L 22 - 30 mmol/L [facility] Creatinine [Mass/Vol] 1.10 mg/dL 0.73 - 1.22 mg/dL [facility] GFR/1.73 sq M.predicted among non-blacks MDRD (S/P/Bld) [Vol rate/Area] 73 mL/min/{1.73_m2} - PINF [facility] Comment on above: Estimated Glomerular Filtration Rate (eGFR) is calculated using the 2020 CKD-EPI creatinine equation. This equation utilizes serum creatinine, sex, and age as parameters. The creatinine assay has traceable calibration to isotope dilution-mass spectrometry. Refer to KDIGO guidelines for clinical interpretation. In patients with unstable renal function, e.g. those with acute kidney injury, the eGFR may not accurately reflect actual GFR. Glucose [Mass/Vol] 83 mg/dL 74 - 99 mg/dL [facility] Comment on above: The [place] Diab[employer] Association (ADA) provides guidance for cutoff values for fasting glucose and random glucose. The ADA defines fasting as no caloric intake for at least 8 hours. Fasting plasma glucose results between 100 to 125 mg/dL indicate increased risk for diabetes (prediabetes). Fasting plasma glucose results greater than or equal to 126 mg/dL meet the criteria for diagnosis of diabetes. In the absence of unequivocal hyperglycemia, results should be confirmed by repeat testing. In a patient with classic symptoms of hyperglycemia or hyperglycemic crisis, random plasma glucose results greater than or equal to 200 mg/dL meet the criteria for diagnosis of diabetes. Reference: Standards of Medical Care in Diabetes 2016, [place] [employer]. Diabetes Care. 2016.39(Suppl 1). Interpretation and review of laboratory results Normal [facility] Potassium [Moles/Vol] 4.3 mmol/L 3.7 - 5.1 mmol/L [facility] Sodium [Moles/Vol] 141 mmol/L 136 - 144 mmol/L [facility] Urea nitrogen [Mass/Vol] 15 mg/dL 9 - 24 mg/dL [facility] LIPID PANEL, NONFASTINGon Cholesterol [Mass/Vol] 205 mg/dL High NINF - 200 mg/dL [facility] Comment on above: <200 mg/dL, Desirabl e 200-239 mg/dL, Borderline high >239 mg/dL, High HDL Cholesterol, Nonfasting 46 mg/dL 39 - PINF mg/dL [facility] Comment on above: 40-59 mg/dL, Accepta ble >59 mg/dL, High: Negative risk factor for coronary heart disease <40 mg/dL, Low: Positive risk factor for coronary heart disease Interpretation and review of laboratory results Abnormal [facility] LDL Cholesterol, Nonfasting 144 mg/dL High NINF - 100 mg/dL [facility] Comment on above: <100 mg/dL, Optimal 100-129 mg/dL, Near optimal/above optimal 130-159 mg/dL, Borderline high 160-189 mg/dL, High >189 mg/dL, Very high Secondary prevention optimal LDL Cholesterol levels are recommended to be < 70 mg/dL LDL/HDL Ratio, Nonfasting 3.13 mg/dL High NINF - 2.54 mg/dL [facility] Comment on above: Reference: 1. National Cholesterol Education Program ATP III Guideline At-A-Glance Quick Desk Reference: National Heart, Lung, and Blood [place]. National Institutes of Health. 2001: NIH Publication No. 01-3305. 2. An International Atherosclerosis Society position paper: global recommendations for the management of dyslipidemia: executive summary, Atherosclerosis. 2014: 232(2):410-413. Non HDL Cholesterol, Nonfasting 159 mg/dL High NINF - 130 mg/dL [facility] Comment on above: <130 mg/dL, Optimal 130-159 mg/dL, Near optimal/above optimal 160-189 mg/dL, Borderline high 190-219 mg/dL, High >219 mg/dL, Very high Secondary prevention optimal non HDL Cholesterol levels are recommended to be <100 mg/dL Total Chol/HDL Ratio, Nonfasting 4.46 mg/dL NINF - 5.10 mg/dL [facility] Triglycerides, Nonfasting 75 mg/dL NINF - 150 mg/dL [facility] Comment on above: <150 mg/dL, Normal 150-199 mg/dL, Borderline high 200-499 mg/dL, High >499 mg/dL, Very high VLDL Cholesterol, Nonfasting 15 mg/dL NINF - 30 mg/dL [facility] No Panel Informationon 10-04 [facility] Urinalysis complete panel (U )on 10-05-2023 Bacteria LM.HPF (Urine sed) [#/Area] Negative Negative /HPF [facility] Bilirubin Ql (U) Negative Negative [facility] Clarity (Unsp spec) Clear Clear [facility] Color (U) Yellow Yellow [facility] Epithelial cells LM.HPF (Urine sed) [#/Area] None Seen /HPF [facility] Glucose Test strip (U) [Mass/Vol] Negative Negative [facility] Hemoglobin Ql (U) Negative Negative [facility] Hyaline casts (Urine sed) [#/Area] 1-3 /LPF Abnormal 0 /LPF [facility] Interpretation and review of laboratory results Abnormal [facility] Ketones Ql (U) Negative Negative [facility] Leukocyte esterase Test strip Ql (U) Negative Negative [facility] Nitrite Ql (U) Negative Negative [facility] pH (U) 5.5 [pH] NINF - 8.5 [facility] Protein (U) [Mass/Vol] Negative Negative [facility] RBC LM.HPF (Urine sed) [#/Area] 0-2 /HPF 0-2 /HPF [facility] Specific gravity (U) [Rel density] 1.020 1.005 - 1.030 [facility] Urobilinogen Ql (U) 0.2 EU/dL 0.2-1.0 EU/dL [facility] WBC LM.HPF (Urine sed) [#/Area] 0-5 /HPF 0-5 /HPF [facility] This test was rome main and its performance characteristics determined by [facility]'s [employer] [facility] Pathology and Laboratory Medicine [place] ([facility]). It has not been cleared or approved by the FDA. [facility] is regulated under CLIA as qualified to perform high-complexity testing. This test is used for clinical purposes. It should not be regarded as investigational or for research. [facility] XR Chest PA and Lateralon IMPRESSION: Persistent bilateral pleural effusions. A follow-up exam is recommended. Gunner'S Mate: MORGAN Transcribe Date/Time: Sep 15 2023 9:09A Dictated by : TA VERGARA MD This examination was interpreted and the report reviewed and electronically signed by: TA VERGARA MD on Sep 15 2023 9:10AM [facility] DIVISION OF RADIOLOGY * * *Final Report* * * DATE OF EXAM: Sep 13 2023 8:13AM [id number] - XR CHEST 2V FRONTAL/LAT / PROCEDURE REASON: multiple diagnoses * * * * Physician Interpretation * * * * EXAMINATION: CHEST RADIOGRAPH (2 VIEW FRONTAL & LATERAL) CLINICAL HISTORY: Pleural effusion TRIPATHI (dyspnea on exertion) MQ: XC2_6 EXAM DATE/TIME: 09/13/2023 8:13 AM COMPARISON: 04/17/2023. RESULT: Lines, tubes, and devices: None. Lungs and pleura: No consolidation. No lung mass. There are chronic or recurrent small bilateral pleural effusions. No pneumothorax. Cardiomediastinal silhouette: The patient is status post median sternotomy with a thoracic aortic valve stent graft in place. Bones and soft tissues: Unremarkable. DIVISION OF RADIOLOGY Provider, [facility] - 09/15/2023 * * *Final Report* * * DATE OF EXAM: Sep 13 2023 8:13AM [id number] - XR CHEST 2V FRONTAL/LAT / PROCEDURE REASON: multiple diagnoses * * * * Physician Interpretation * * * * EXAMINATION: CHEST RADIOGRAPH (2 VIEW FRONTAL & LATERAL) CLINICAL HISTORY: Pleural effusion TRIPATHI (dyspnea on exertion) MQ: XC2_6 EXAM DATE/TIME: 09/13/2023 8:13 AM COMPARISON: 04/17/2023. RESULT: Lines, tubes, and devices: None. Lungs and pleura: No consolidation. No lung mass. There are chronic or recurrent small bilateral pleural effusions. No pneumothorax. Cardiomediastinal silhouette: The patient is status post median sternotomy with a thoracic aortic valve stent graft in place. Bones and soft tissues: Unremarkable. IMPRESSION IMPRESSION: Persistent bilateral pleural effusions. A follow-up exam is recommended. Gunner'S Mate: MORGAN Transcribe Date/Time: Sep 15 2023 9:09A Dictated by : TA VERGARA MD This examination was interpreted and the report reviewed and electronically signed by: TA VERGARA MD on Sep 15 2023 9:10AM EST [facility] XR Chest PA and LateralOrder ed By: [facility] Provider on 09-15-2023 [facility] XR Chest PA and Lateralon Radiology Study observation (narrative) [facility] MR Thoracic spine WO and W c ontrast Leonila 09-10-2023 IMPRESSION: 1. Interval increase in size of infiltrative T1 hypointense, T2 STIR hyperintense enhancing process throughout the T10 vertebral body with development of pathologic fracture resulting in 33% anterior height loss and no osseous retropulsion. No evidence of extraosseous or epidural tumor invasion. 2. Interval development of linear T2 STIR hyperintense signal abnormality and T1 hypointensity in the inferior aspect of the T9 vertebral body with similar mild anterior height loss, compatible with unhealed interval fracture. 3. Chronic fracture of the T11 vertebral body, potentially pathologic, with similar 50% anterior height loss and no osseous retropulsion. Linear T2 STIR hyperintense signal through the anterior aspect of the T11 vertebral body may reflect sequela of incomplete healing. 4. No substantial canal stenosis or cord compression. 5. Moderate left and small right layering pleural fluid collections. Anatomic Thoracic/Lumbar Variant: Assume 13 thoracic vertebrae to accommodate counting discrepancies from the craniocervical and lumbosacral junctions. L4-5 is considered the level of the iliac crest and there are 5 lumbar-type vertebrae. Gunner'S Mate: [facility] Transcribe Date/Time: Sep 10 2023 9:48A Dictated by : ROMERO ROCHA MD This examination was interpreted and the report reviewed and electronically signed by: ROMERO ROCHA MD on Sep 10 2023 10:00AM EST DIVISION OF RADIOLOGY * * *Final Report* * * DATE OF EXAM: Sep 10 2023 9:38AM [facility] [id number] - MRI THORACIC SPINE WO/W IVCON / PROCEDURE REASON: Pathological fracture of thoracic vertebra, initial encounter * * * * Physician Interpretation * * * * EXAMINATION: MRI THORACIC SPINE WO/W IVCON CLINICAL HISTORY: Pathological fracture of thoracic vertebra, initial encounter TECHNIQUE: Routine thoracic spine MR protocol with and without intravenous gadolinium. MQ: [id number] COMPARISON: MRI thoracic spine 03/27/2023 RESULT: Counting reference: Craniocervical and lumbosacral junctions. Localizer images: Moderate left and small right loculated pleural fluid collections are present. Esophagectomy and gastric pull-through. Alignment: No substantial listhesis. Cord: The visualized cord is within normal limits of signal intensity and morphology. Bone marrow signal/fracture: Interval increase in size of infiltrative T1 hypointense, T2 STIR hyperintense enhancing lesion throughout the T10 vertebral body with development of pathologic fracture resulting in 33% anterior height loss and no osseous retropulsion. Interval development of linear T2 STIR hyperintense signal abnormality and T1 hypointensity in the inferior aspect of the T9 vertebral body with similar mild anterior height loss, compatible with unhealed interval fracture. Chronic fracture of the T11 vertebral body with similar 50% anterior height loss and no osseous retropulsion. Linear T2 STIR hyperintense signal through the anterior aspect of the T11 vertebral body may reflect sequela of incomplete healing. Thoracic paraspinal soft tissues: The paraspinal soft tissues are within normal limits. Canal and foramina: No substantial canal or foraminal stenosis in the thoracic spine. Degenerative marrow edema is present surrounding the right T10-T11 facet joint. DIVISION OF RADIOLOGY Provider, [facility] - 09/10/2023 * * *Final Report* * * DATE OF EXAM: Sep 10 2023 9:38AM [facility] 0326 - MRI THORACIC SPINE WO/W IVCON / PROCEDURE REASON: Pathological fracture of thoracic vertebra, initial encounter * * * * Physician Interpretation * * * * EXAMINATION: MRI THORACIC SPINE WO/W IVCON CLINICAL HISTORY: Pathological fracture of thoracic vertebra, initial encounter TECHNIQUE: Routine thoracic spine MR protocol with and without intravenous gadolinium. MQ: [id number] COMPARISON: MRI thoracic spine 03/27/2023 RESULT: Counting reference: Craniocervical and lumbosacral junctions. Localizer images: Moderate left and small right loculated pleural fluid collections are present. Esophagectomy and gastric pull-through. Alignment: No substantial listhesis. Cord: The visualized cord is within normal limits of signal intensity and morphology. Bone marrow signal/fracture: Interval increase in size of infiltrative T1 hypointense, T2 STIR hyperintense enhancing lesion throughout the T10 vertebral body with development of pathologic fracture resulting in 33% anterior height loss and no osseous retropulsion. Interval development of linear T2 STIR hyperintense signal abnormality and T1 hypointensity in the inferior aspect of the T9 vertebral body with similar mild anterior height loss, compatible with unhealed interval fracture. Chronic fracture of the T11 vertebral body with similar 50% anterior height loss and no osseous retropulsion. Linear T2 STIR hyperintense signal through the anterior aspect of the T11 vertebral body may reflect sequela of incomplete healing. Thoracic paraspinal soft tissues: The paraspinal soft tissues are within normal limits. Canal and foramina: No substantial canal or foraminal stenosis in the thoracic spine. Degenerative marrow edema is present surrounding the right T10-T11 facet joint. IMPRESSION IMPRESSION: 1. Interval increase in size of infiltrative T1 hypointense, T2 STIR hyperintense enhancing process throughout the T10 vertebral body with development of pathologic fracture resulting in 33% anterior height loss and no osseous retropulsion. No evidence of extraosseous or epidural tumor invasion. 2. Interval development of linear T2 STIR hyperintense signal abnormality and T1 hypointensity in the inferior aspect of the T9 vertebral body with similar mild anterior height loss, compatible with unhealed interval fracture. 3. Chronic fracture of the T11 vertebral body, potentially pathologic, with similar 50% anterior height loss and no osseous retropulsion. Linear T2 STIR hyperintense signal through the anterior aspect of the T11 vertebral body may reflect sequela of incomplete healing. 4. No substantial canal stenosis or cord compression. 5. Moderate left and small right layering pleural fluid collections. Anatomic Thoracic/Lumbar Variant: Assume 13 thoracic vertebrae to accommodate counting discrepancies from the craniocervical and lumbosacral junctions. L4-5 is considered the level of the iliac crest and there are 5 lumbar-type vertebrae. [facility] Transcribe Date/Time: Sep 10 2023 9:48A Dictated by : ROMERO ROCHA MD This examination was interpreted and the report reviewed and electronically signed by: ROMERO ROCHA MD on Sep 10 2023 10:00AM EST [facility] Radiology Study observation (narrative) [facility] MR Thoracic spine WO and W c ontrast IVOrdered By: [facility] Provider on 09-10-2023 [facility] NM Biliary ducts and Gallbla dder Views for patency of biliary structures and ejection fraction W sincalide and W radionuclide Leonila 06-28-2023 [facility] ANES POSTPROC EVALon 024 ANES POSTPROC EVAL HNO ID: [id number] Author: CONG CHEW MD Service: Anesthesiology Author Type: Physician Type: Anesthesia Postprocedure Evaluation Filed: 06/05/2023 14:44 Note Text: POST ANESTHESIA EVALUATION NOTE : 1955 Procedure Summary Date: 06/05/23 Room / Location: [facility] Anesthesia Start: 1342 Anesthesia Stop: 1435 Procedure: EGD - THERAPEUTIC, EUS, OR TUBE INTERVENTIONS Diagnosis: Malignant neoplasm of esophagus, unspecified location (HCC) (Abnormal abdominal PET scan) Scheduled Providers: Amos Rangel MD Responsible Provider: Cong Chew MD Anesthesia Type: MAC ASA Status: 4 Anesthesia Type: MAC Last Vitals Vitals Value Taken Time BP 134/84 06/05/23 1433 Pulse 77 06/05/23 1444 Resp 21 06/05/23 1444 SpO2 100 % 06/05/23 1444 Vitals shown include unfiled device data. Post Anesthesia Patient Status Patient Evaluation: bedside. Pulmonary Status: breathing comfortably on supplemental oxygen Cardiovascular Status: stable. Intraoperative Events: no significant anesthesia events Recommendation: continue current plan of care. Anesthesia Observations No Documentation SIGNATURE: Cong Chew MD PATIENT NAME: Jaocb Landa DATE: June 05, 2023 TIME: 2:44 PM CSN: [id number] Normal [facility] ANES PRE-OPon 06-05-2023 ANES PRE-OP HNO ID: [id number] Author: CONG CHEW MD Service: Anesthesiology Author Type: Physician Type: Anesthesia Preprocedure Evaluation Filed: 06/05/2023 13:22 Note Text: ANESTHESIOLOGY DAY OF SURGERY NOTE : 1955 Procedure Information Date/Time: 06/05/23 1300 Scheduled providers: Amos Rangel MD Procedure: EGD - THERAPEUTIC, EUS, OR TUBE INTERVENTIONS Location: [facility] Estimated body mass index is 28.5 kg/m? as calculated from the following: Height as of this encounter: 175.3 cm (5' 9"). Weight as of this encounter: 87.5 kg (193 lb). Most recent hematocrit and potassium results: Hematocrit 42.2 02/13/2023 Potassium 4.0 02/13/2023 Relevant Problems CARDIO (+) Aortic valve stenosis (+) Coronary artery disease involving [place] coronary artery without angina pectoris (+) Essential hypertension, benign (+) S/P CABG x 4 GI (+) GERD (gastroesophageal reflux disease) NEURO-PSYCH (+) History of kidney stones (+) Personal history of colonic polyps PULMONARY (+) Asthma I - PHYSICAL EVALUATION AIRWAY Patient intubated: No. Tracheostomy tube not present Mallampati: II. TM distance: >3 FB. Neck ROM: full ROM without neurological symptoms. Mouth opening: adequate. Short neck: no. Thick neck: no DENTAL Normal dental observations. Dental findings: poor dentition. II - ANESTHESIA PLAN ASA Score: 4 Anesthetic Plan: MAC NPO Status: adequate Beta Cookie Administration of chronic beta cookie medication not planned. Reasons for not administering beta cookie perioperatively: other Monitoring Plan Monitoring plan: standard ASA. Post Procedure Analgesic Plan Postoperative analgesic plan: parenteral or oral opioids and per surgical service. Informed Consent Anesthetic risks, benefits, alternatives, personnel and consent discussed: yes. Patient / Responsible Alliance Party agrees to proceed: yes Patient / Surrogate agrees to blood products: blood products not planned Potential Anesthesia issues that may suggest increased risk of complications or contraindication to planned procedure: potential difficult IV access. Discussed the possibility of lip / dental damage: yes Vitals Value Taken Time BP 144/86 06/05/23 1225 Pulse 75 06/05/23 1225 Resp 20 06/05/23 1225 Temp 37.2 ?C (99 ?F) 06/05/23 1225 SpO2 100 % 06/05/23 1225 Outpatient Medications as of 06/05/2023 Medication Sig - pantoprazole DR (PROTONIX) 40 mg tablet Take 1 tablet by mouth two times a day. - atorvastatin (LIPITOR) 80 mg tablet Take 1 tablet by mouth daily at bedtime. - ezetimibe (ZETIA) 10 mg tablet Take 1 tablet by mouth once daily. - metoprolol tartrate, short acting, (LOPRESSOR) 25 mg tablet Take 1 tablet by mouth twice daily. - amLODIPine (NORVASC) 10 mg tablet Take 1 tablet by mouth once daily. - nortriptyline (PAMELOR) 10 mg capsule Take 1 capsule by mouth daily at bedtime. - sodium chloride (SALINE MIST) 0.65 % nasal spray Use 1 Hutchins in the nose as needed for cold/allergy symptoms. - enteric contrast (will be provided with radiology test) For CT ABD/PEL W IVCON Routine order Administer, As Directed One Time Only, via Oral, Rectal, both Oral and Rectal, Enteric Tube, Stoma or Indwelling Catheter, Enteric Contrast as designated per enteric contrast guidelines - aspirin 81 mg chewable tablet Take 1 tablet by mouth once daily. - acetaminophen (TYLENOL) 500 mg tablet Take 500 mg by mouth every 6 hours as needed. Facility-Administered Medications as of 06/05/2023 Medication Dose Route Frequency - lactated ringers iv infusion 30 mL/hr INTRAVENOUS CONTINUOUS I have interviewed and examined the patient. I have reviewed the medical record and/or the pre-anesthesia evaluation, pertinent labs, and test results. This contains updated information obtained within 48 hours of Surgery/Procedure. SIGNATURE: Cong Chew MD PATIENT NAME: Jacob Landa DATE: June 05, 2023 TIME: 1:21 PM CSN: [id number] Normal [facility] EGD Study observation Narrat iveon 06-05-2023 [facility] HISTORY PHYSICALon HISTORY PHYSICAL HNO ID: [id number] Author: ARUNA MENDEZ APRN.CNP Service: Nursing Author Type: Nurse Practitioner Type: H&P Filed: 06/05/2023 12:49 Note Text: HISTORY AND PHYSICAL EXAMINATION SERVICE DATE: 06/05/2023 SERVICE TIME: 12:28 PM PRIMARY CARE PHYSICIAN: Yaw Singh MD REASON FOR VISIT: The reason for this visit is To perform a comprehensive review of the patients past medical history, assess their current health status and obtain any additional testing required based on anesthesia guidelines. To assess and identify potential anesthesia problems, particularly those that may suggest potential complications or contraindications to the planned procedure. The patient has the following: ACTIVE PROBLEM LIST Essential Hypertension, Benign Mixed Hyperlipidemia Asthma Gerd (Gastroesophageal Reflux Disease) Personal History of Colonic Polyps Bph (Benign Prostatic Hyperplasia) History of Kidney Stones Aortic Valve Stenosis Situational Depression Screening for Colon Cancer S/P Cabg X 4 Ddd (Degenerative Disc Disease), Lumbar Malignant Neoplasm of Lower Third of Esophagus (Hcc) Iron Deficiency Anemia Due to Chronic Blood Loss Iron Malabsorption Esophageal Adenocarcinoma (Hcc) Coronary Artery Disease Involving [place] Coronary Artery Without Angina Pectoris Ak (Actinic Keratosis) Medicare Annual Wellness Visit, Subsequent Pleural Effusion Advance Directive Discussed With Patient Medication Management Prostate Disorder Decreased Sexual Desire Rn Wound's Nodules Primary Insomnia Pre-Op Exam Subjective CHIEF COMPLAINT: Preoperative Examination HPI: Patient present to [facility] for the above procedure. Patient had EGD on 05/07/23, now having follow up on the results. EGD in early 2020 - distal esophageal adenocarcinoma. Hi last chemo was june 23, 2020. After that he has surveillance. Patient reports occasional N/V/D. Denies any abdominal pain. Denies any melena, hematochezia, or hematemesis. Patient denies any other problems at this time. Denies any family history of Colon cancer or other Gastric ca. Patient agreed to planned procedure. METS: Climb a flight of stairs or walk up a hill (5.50 METs) Patient denies any CP/SOB with above activity. PAST MEDICAL HISTORY Diagnosis Date Advance directive discussed with patient 02/09/2022 Discussed 02/2022, packets provided AK (actinic keratosis) 09/07/2020 One on the right forearm dorsal, three on the left forearm dorsal and one left side of face hear hair line about eye level. Tx cryo 09/2020 Aortic valve stenosis 07/26/2015 Asthma BPH (benign prostatic hyperplasia) 07/20/2014 Carpal tunnel syndrome of right wrist Coronary artery disease involving [place] coronary artery without angina pectoris Seeing Dr. Noland DDD (degenerative disc disease), lumbar 11/04/2019 Esophageal adenocarcinoma (HCC) 08/09/2020 Essential hypertension, benign GERD (gastroesophageal reflux disease) 07/12/2009 History of kidney stones 07/20/2014 Iron deficiency anemia due to chronic blood loss 05/25/2020 Iron malabsorption 05/25/2020 Kidney stone Malignant 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) 04/15/2020 Medicare annual wellness visit, subsequent 01/13/2021 Medical B eligibilty date 03/09/19 Date of last exam 01/13/2021 Mixed hyperlipidemia MRSA (methicillin resistant Staphylococcus aureus) 12/01/2016 treated with course of Linezolid beginning 10/29/16 Nonrheumatic aortic valve disorder On tube feeding diet 08/14/2020 History: 65 year old male s/p [place] esophagectomy, Pyloromyotomy, Jejunostomy tube placement for esophageal adenocarcinoma -Diet: Isosource 1.5 to 50 cc hour with 100 cc water flushes 8 times per day and Bene protein 3 times per day Removed 11/17/2020 Personal history of colonic polyps 12/27/2009 Rn Wound's nodules 03/30/2023 Will try pamelor Pleural effusion 03/11/2021 Stable in f/u studies. 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 4 07/23/2017 Situational depression 08/2014 Upper GI bleed 05/25/2020 PAST SURGICAL HISTORY Procedure Laterality Date ADENOIDECTOMY PRIMARY Adenoidectomy AORTIC VALVE RECONSTRUCTION 03/03/2019 s/p TAVR BYP OTH/THN VEIN CAROTID-SUBCLAVIAN 2002 Bypass graft carotid subcl COLONOSCOPY FLX DX W/COLLJ SPEC WHEN PFRMD 02/28/2013 COLONOSCOPY FLX DX W/COLLJ SPEC WHEN PFRMD 12/06/2016 repeat in 5 yrs COLONOSCOPY SCRN NOT HIGH RISK 06/01/2020 COLONOSCOPY W/BIOPSY SINGLE/MULTIPLE 02/22/2007 Diminutive polyp distal [id number] ECHO 01/08/2021 EGD 04/15/2020 HEART CATHETERIZATION 12/2018 with 2 stents IMPLANT MESH OPN HERNIA RPR/DEBRIDEMENT CLOSURE 03/06/2007 LAPAROSCOPY SURG RPR INITIAL INGUINAL HERNIA 03/06/2007 umbilical NM CARDIAC STRESS TEST 01/08/2021 PAST SURGICAL HISTORY OF Right 2016 incision and drainage right axillary abscess REPAIR ANORECTAL FISTULA W/PLUG 12/06/2016 REPAIR FIRST ABDOMINAL WALL HERNIA 1 (more content not included)... Normal [facility] SURGICAL PATHOLOGYon 024 CASE REPORT Normal [facility] Comment on above: Order Comment: Speci men Type: TISSUE SPECIMEN Ordering Facility: [facility] Address: [address] [place] [address] [place] [address] Result Comment: Surg ical Pathology Report Case: [id number] Authorizing Provider: Amos Rangel MD Collected: 06/05/2023 02:26 PM Ordering Location: [facility] Received: 06/06/2023 10:11 AM Pathologist: Angelica Hernandez MD Specimen: ESOPHAGOGASTRIC JUNCTION BIOPSY, @27 cm Performed By: #### S #### [facility] CLIA [id number] [address] [place] [address] FINAL DIAGNOSIS Normal [facility] Comment on above: Order Comment: Speci men Type: TISSUE SPECIMEN Ordering Facility: [facility] Address: [address] [place] [address] Result Comment: A. E sophagogastric junction at 27 cm, biopsy: -- Fragments of squamous epithelium with no significant histopathologic abnormalities. -- Detached strips of columnar surface and glandular epithelium with no significant histopathologic abnormalities; fragmentation precludes further evaluation. Performed By: #### S #### [facility] CLIA [id number] [address] [place] [address] FINAL PERFORMING LAB Normal [facility] Comment on above: Order Comment: Speci men Type: TISSUE SPECIMEN Ordering Facility: [facility] Address: [address] [place] [address] Result Comment: Diag nostic interpretation performed at [facility], [address] [place] [address] CLIA# [id number] Credit Collections Specialist: Nikita Ventura M.D. Performed By: #### S #### [facility] CLIA [id number] [address] [place] [address] GROSS DESCRIPTION Normal [facility] Comment on above: Order Comment: Speci men Type: TISSUE SPECIMEN Ordering Facility: [facility] Address: [address] [place] [address] Result Comment: A. E SOPHAGOGASTRIC JUNCTION BIOPSY Received in formalin labeled esophagogastric junction biopsy at 27 cm are multiple pieces of fitzgerald, soft tissue aggregating to 1.1 x 0.3 x 0.1 cm. Totally submitted in one cassette. Gross examination performed at [facility], [address] [place] [address] CLIA# [id number] [facility] June 06, 2023 12:37 PM Performed By: #### S #### [facility] CLIA [id number] [address] STATES OF [facility] Upper EUSon 06-05-2023 Upper EUS [facility] Gastrointestinal Endoscopy Patient Name: Jacob Landa Procedure Date: 06/05/2023 1:20 PM Date of : 1955 Admit Type: Outpatient Room: [place] [address] Gender: Male Note Status: Finalized Attending MD: Amos Rangel MD, [id number] Procedure: Upper EUS Indications: Abnormal abdominal PET scan Providers: Amos Rangel MD Patient Profile: This is a 68 year old male. Refer to note in patient chart for documentation of history and physical. Referring Physician: Jurgen Bocanegra MD (Referring MD) Medicines: General Anesthesia Complications: No immediate complications. Procedure: Pre-Anesthesia Assessment: - Prior to the procedure, a History and Physical was performed, and patient medications and allergies were reviewed. The patient's tolerance of previous anesthesia was also reviewed. The risks and benefits of the procedure and the sedation options and risks were discussed with the patient. All questions were answered, and informed consent was obtained. Prior Anticoagulants: The patient has taken no anticoagulant or antiplatelet agents. ASA Grade Assessment: III - A patient with severe systemic disease. After reviewing the risks and benefits, the patient was deemed in satisfactory condition to undergo the procedure. After obtaining informed consent, the endoscope was passed under direct vision. Throughout the procedure, the patient's blood pressure, pulse, and oxygen saturations were monitored continuously. The Endoscope was introduced through the mouth, and advanced to the second part of duodenum. I was present and participated during the entire procedure, including non-berry portions, and during the administration and monitoring of Moderate Sedation. The Endosonoscope was introduced through the and advanced to the. I was present and participated during the entire procedure, including non-berry portions, and during the administration and monitoring of Moderate Sedation. The Endosonoscope was introduced through the and advanced to the. I was present and participated during the entire procedure, including non-berry portions, and during the administration and monitoring of Moderate Sedation. After obtaining informed consent, the endoscope was passed under direct vision. Throughout the procedure, the patient's blood pressure, pulse, and oxygen saturations were monitored continuously.The upper GI endoscopy was accomplished without difficulty. The patient tolerated the procedure well. Findings: ENDOSCOPIC FINDING: : A widely-patent esophago-gastric anastomosis was found in the middle third of the esophagus at 27 cm. Biopsies were taken with a cold forceps for histology. Verification of patient identification for the specimen was done. Estimated blood loss was minimal. The entire examined stomach was normal. The examined duodenum was normal. ENDOSONOGRAPHIC FINDING: : There was no sign of significant endosonographic abnormality in the gastroesophageal junction and in the esophagus. No pathologic lymphadenopathy, no masses and no wall thickening were identified. Estimated Blood Loss: Estimated blood loss: none. Impression: - An esophago-gastric anastomosis was found. Biopsied. - Normal stomach. - Normal examined duodenum. - There was no sign of significant pathology in the gastroesophageal junction and in the esophagus. Recommendation: - Discharge patient to home. - Resume previous diet. - Continue present medications. - Await path results. Procedure Code(s): --- Professional --- 53733, Esophagogastroduodenoscopy , flexible, transoral; with endoscopic ultrasound examination limited to the esophagus, stomach or duodenum, and adjacent structures 79140, Esophagogastroduodenoscopy , flexible, transoral; with biopsy, single or multiple --- Technical --- 57128, Esophagogastroduodenoscopy , flexible, transoral; with endoscopic ultrasound examination limited to the esophagus, stomach or duodenum, and adjacent structures 03961, Esophagogastroduodenoscopy , flexible, transoral; with biopsy, single or multiple Diagnosis Code(s): --- Professional --- Z98.890, Other specified postprocedural states R93.5, Abnormal findings on diagnostic imaging of other abdominal regions, including retroperitoneum --- Technical --- Z98.890, Other specified postprocedural states R93.5, Abnormal findings on diagnostic imaging of other abdominal regions, including retroperitoneum CPT copyright 2020 [employer]. All rights reserved. The codes documented in this report are preliminary and upon aviation consultant review may be revised to meet current compliance requirements. Attending Participation: I personally performed the entire procedure. Scope In: 1:48:55 PM Scope Out: 2:24:20 PM MD Amos Oneill MD 06/05/2023 2:35:39 PM This repor (more content not included)... Normal [facility] CNPNon 06-04-2023 CNPN Telephone (AGGASTACC ) -- SYEDAJACOB ([id number]) 1955 M Date Time Provider Department 06/04/23 ZABRINA HERBERT AGGASTACC During your visit today, we recorded the following information about you: Christiano Taylor 06/04/2023 11:11 AM Signed Can you up eus for Dr. Rangel in telephone encounter. Zabrina Herbert PA-C 06/04/2023 11:42 AM Signed EUS ordered -OPAL Hunt Kelsey, PA-C 06/04/2023 11:42 AM Signed Addended by: ZABRINA HERBERT on: 06/04/2023 11:42 AM Modules accepted: Orders Christiano Taylor 06/04/2023 11:50 AM Signed Addended by: CHRISTIANO TAYLOR on: 06/04/2023 11:50 AM Modules accepted: Orders Allergies As of Date: 06/04/2023 (No Active Allergies) Date Reviewed: 05/07/2023 Reviewed by: Jazmyn Richardson, MICHELE - Fully Assessed Reason for Visit: Appointment [186] Primary Visit Diagnosis: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] Order(s):EGD - THERAPEUTIC, EUS, OR TUBE INTERVENTIONS [GI2] Order #: [id number] FUTURE Prescriptions as of 06/04/2023 - pantoprazole DR (PROTONIX) 40 mg tablet Take 1 tablet by mouth two times a day. - nortriptyline (PAMELOR) 10 mg capsule Take 1 capsule by mouth daily at bedtime. - sodium chloride (SALINE MIST) 0.65 % nasal spray Use 1 Hutchins in the nose as needed for cold/allergy symptoms. - enteric contrast (will be provided with radiology test) For CT ABD/PEL W IVCON Routine order Administer, As Directed One Time Only, via Oral, Rectal, both Oral and Rectal, Enteric Tube, Stoma or Indwelling Catheter, Enteric Contrast as designated per enteric contrast guidelines - atorvastatin (LIPITOR) 80 mg tablet Take 1 tablet by mouth daily at bedtime. - ezetimibe (ZETIA) 10 mg tablet Take 1 tablet by mouth once daily. - aspirin 81 mg chewable tablet Take 1 tablet by mouth once daily. - metoprolol tartrate, short acting, (LOPRESSOR) 25 mg tablet Take 1 tablet by mouth twice daily. - acetaminophen (TYLENOL) 500 mg tablet Take 500 mg by mouth every 6 hours as needed. - amLODIPine (NORVASC) 10 mg tablet Take 1 tablet by mouth once daily. Meds Comments as of 03/06/2016: Krill Oil 350 Mg Antacid Will follow Dr. Light instructions regarding ASA Problem List As Of Date 06/04/2023 Noted Resolved Essential hypertension, benign [I10] Mixed hyperlipidemia [E78.2] Calculus of kidney [N20.0] 07/26/2015 Asthma [J45.909] 02/19/2006 Cough [R05.9] 02/19/2006 07/26/2015 INGUINAL HERNIA, UNILATERAL W/O GANGRENE/OBSTRU*01/21/2007 07/26/2015 UMBILICAL HERNIA W/O GANGRENE/OBSTRUCTION [K42.*01/21/2007 07/26/2015 Cellulitis and abscess of trunk [L03.319, L02.2*10/24/2007 07/26/2015 Boil of buttock [L02.32] 05/10/2009 07/26/2015 Epidermal inclusion cyst [L72.0] 05/10/2009 07/26/2015 Pyoderma, unspecified [L08.0] 05/10/2009 07/26/2015 Contact dermatitis and other eczema, due to uns*05/10/2009 07/26/2015 Other acne [L70.8] 05/10/2009 07/26/2015 GERD (gastroesophageal reflux disease) [K21.9] 07/12/2009 Personal history of colonic polyps [Z86.010] 12/27/2009 Arthritis of right hand [M19.041] 08/04/2013 07/26/2015 Right carpal tunnel syndrome [G56.01] 08/04/2013 07/26/2015 Hematuria [R31.9] 07/20/2014 12/01/2016 BPH (benign prostatic hyperplasia) [N40.0] 07/20/2014 History of kidney stones [Z87.442] 07/20/2014 Aortic valve stenosis [I35.0] 07/26/2015 Situational depression [F43.21] 07/26/2015 Screening for colon cancer [Z12.11] 11/24/2016 Obesity, Class II, BMI 35-39.9 E66.9 [E66.9] 07/23/2017 07/19/2021 Chest pain [R07.9] 07/23/2017 07/23/2017 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] 07/23/2017 DDD (degenerative disc disease), lumbar [M51.36]11/04/2019 Malignant neoplasm of lower third of esophagus *04/27/2020 Obesity, Class I, BMI 30-34.9 [E66.9] 05/17/2020 07/19/2021 Iron deficiency anemia due to chronic blood los*05/25/2020 Iron malabsorption [K90.9] 05/25/2020 Esophageal adenocarcinoma (HCC) [C15.9] 08/09/2020 Coronary artery disease involving [place] crisostomo* On tube feeding diet [Z78.9] 08/14/2020 01/13/2021 AK (actinic keratosis) [L57.0] 09/07/2020 Medicare annual wellness visit, subsequent [Z00*01/13/2021 Pleural effusion [J90] 03/11/2021 Advance directive discussed with patient [Z71.8*02/09/2022 Medication management [Z79.899] 02/09/2022 Prostate disorder [N42.9] 02/09/2022 Decreased sexual desire [F52.0] 02/09/2022 Rn Wound's nodules [L28.1] 03/30/2023 Primary insomnia [F51.01] 03/30/2023 Encounter Status:Closed by CHRISTIANO TAYLOR on 06/04/23 [facility] ANES POSTPROC EVALon 024 ANES POSTPROC EVAL HNO ID: [id number] Author: LARRY ROONEY MD Service: Anesthesiology Author Type: Anesthesiologist Type: Anesthesia Postprocedure Evaluation Filed: 05/07/2023 09:04 Note Text: POST ANESTHESIA EVALUATION NOTE : 1955 Procedure Summary Date: 05/07/23 Room / Location: [facility] Anesthesia Start: 08 Anesthesia Stop: 838 Procedure: EGD - THERAPEUTIC, EUS, OR TUBE INTERVENTIONS Diagnosis: Esophageal adenocarcinoma (HCC) (Diagnostic procedure) Scheduled Providers: Jurgen Bocanegra MD Responsible Provider: Larry Rooney MD Anesthesia Type: MAC ASA Status: 3 Anesthesia Type: MAC Last Vitals Vitals Value Taken Time BP 111/65 05/07/23 0851 Temp 36.5 ?C (97.7 ?F) 05/07/23 0836 Pulse 75 05/07/23 0851 Resp 16 05/07/23 0851 SpO2 97 % 05/07/23 0851 Post Anesthesia Patient Status Patient Evaluation: PACU. PACU/ICU Patient Condition: stable. Anticipated Disposition: inpatient floor planned admission. Neurological Status: aware and responsive. Pulmonary Status: breathing comfortably on supplemental oxygen Airway Control: returned to baseline unsupported. Cardiovascular Status: stable. Pain Management: clinically adequate Postoperative Hydration: acceptable. Intraoperative Events: no significant anesthesia events Recommendation: continue current plan of care. Anesthesia Observations No Documentation SIGNATURE: Larry Rooney MD PATIENT NAME: Jacob Landa DATE: May 07, 2023 TIME: 9:04 AM CSN: [id number] Normal [facility] ANES PRE-OPon 05-07-2023 ANES PRE-OP HNO ID: [id number] Author: LARRY ROONEY MD Service: Anesthesiology Author Type: Anesthesiologist Type: Anesthesia Preprocedure Evaluation Filed: 05/07/2023 07:39 Note Text: ANESTHESIOLOGY DAY OF SURGERY NOTE : 1955 Procedure Information Date/Time: 05/07/23 0800 Scheduled providers: Jurgen Bocanegra MD Procedure: EGD - THERAPEUTIC, EUS, OR TUBE INTERVENTIONS Location: [facility] Estimated body mass index is 29.65 kg/m? as calculated from the following: Height as of 05/01/23: 172.7 cm (5' 8"). Weight as of 05/01/23: 88.5 kg (195 lb). Most recent hematocrit and potassium results: Hematocrit 42.2 02/13/2023 Potassium 4.0 02/13/2023 Relevant Problems CARDIO (+) Aortic valve stenosis (+) Coronary artery disease involving [place] coronary artery without angina pectoris (+) Essential hypertension, benign (+) S/P CABG x 4 GI (+) GERD (gastroesophageal reflux disease) NEURO-PSYCH (+) History of kidney stones (+) Personal history of colonic polyps PULMONARY (+) Asthma I - PHYSICAL EVALUATION AIRWAY Patient intubated: No. Tracheostomy tube not present Mallampati: II. TM distance: >3 FB. Neck ROM: full ROM without neurological symptoms. Mouth opening: adequate. Short neck: no. Thick neck: no Woodall present: yes DENTAL Dental findings: poor dentition and missing tooth/teeth. II - ANESTHESIA PLAN ASA Score: 3 Anesthetic Plan: MAC NPO Status: adequate Beta Cookie Monitoring Plan Monitoring plan: standard ASA. Post Procedure Analgesic Plan Postoperative analgesic plan: multimodal analgesia. Informed Consent Anesthetic risks, benefits, alternatives, personnel and consent discussed: yes. Patient / Responsible Alliance Party agrees to proceed: yes Patient / Surrogate agrees to blood products: blood products not planned Vitals Value Taken Time BP 123/84 05/07/23 0720 Pulse 64 05/07/23 0720 Resp 16 05/07/23 0720 Temp 36.5 ?C (97.7 ?F) 05/07/23 0720 SpO2 97 % 05/07/23 0720 Outpatient Medications as of 05/07/2023 Medication Sig - atorvastatin (LIPITOR) 80 mg tablet Take 1 tablet by mouth daily at bedtime. - ezetimibe (ZETIA) 10 mg tablet Take 1 tablet by mouth once daily. - pantoprazole DR (PROTONIX) 40 mg tablet Take 1 tablet by mouth twice daily. - aspirin 81 mg chewable tablet Take 1 tablet by mouth once daily. - metoprolol tartrate, short acting, (LOPRESSOR) 25 mg tablet Take 1 tablet by mouth twice daily. - amLODIPine (NORVASC) 10 mg tablet Take 1 tablet by mouth once daily. - nortriptyline (PAMELOR) 10 mg capsule Take 1 capsule by mouth daily at bedtime. - sodium chloride (SALINE MIST) 0.65 % nasal spray Use 1 Hutchins in the nose as needed for cold/allergy symptoms. - enteric contrast (will be provided with radiology test) For CT ABD/PEL W IVCON Routine order Administer, As Directed One Time Only, via Oral, Rectal, both Oral and Rectal, Enteric Tube, Stoma or Indwelling Catheter, Enteric Contrast as designated per enteric contrast guidelines - acetaminophen (TYLENOL) 500 mg tablet Take 500 mg by mouth every 6 hours as needed. Facility-Administered Medications as of 05/07/2023 Medication Dose Route Frequency - lactated ringers iv infusion 30 mL/hr INTRAVENOUS CONTINUOUS I have interviewed and examined the patient. I have reviewed the medical record and/or the pre-anesthesia evaluation, pertinent labs, and test results. This contains updated information obtained within 48 hours of Surgery/Procedure. SIGNATURE: Larry Rooney MD PATIENT NAME: Jacob Landa DATE: May 07, 2023 TIME: 7:39 AM CSN: [id number] [facility] HISTORY PHYSICALon HISTORY PHYSICAL HNO ID: [id number] Author: JORDANA KINGSTON APRN.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 Service: Anesthesiology Author Type: Nurse Practitioner Type: H&P Filed: 05/07/2023 07:05 Note Text: HANDP completed 04/25/[address] Bocanegra. [facility] SURGICAL PATHOLOGYon 024 CASE REPORT [facility] Comment on above: Order Comment: Ehsan nunes Type: TISSUE SPECIMENOrdering Facility: [facility] Address: [address] [place] [address] Result Comment: Surg ica Pathology Report Case: [id number] Authorizing Provider: Jurgen Bocanegra MD Collected: 05/07/2023 08:24 AM Ordering Location: [facility] Received: 05/08/2023 12:48 PM Pathologist: José Miguel Eugene MD Specimen: ESOPHAGOGASTRIC JUNCTION RESECTION Performed By: #### S ####[facility] LABORATORYCLIA [id number] [place] [address] [place] FINAL DIAGNOSIS Normal [facility] Comment on above: Order Comment: Ehsan nunes Type: TISSUE SPECIMENOrdering Facility: [facility] Address: [address] [place] [address] Result Comment: A. E sophagogastric junction, biopsy: - Fragment of gastric-type glandular mucosa with mild chronic inflammation and separate fragments of esophageal squamous mucosa with no histopathologic abnormality. - There is no evidence of residual/recurrent adenocarcinoma, intestinal metaplasia or dysplasia. Performed By: #### S ####[facility] LABORATORYCLIA [id number] [address] FINAL PERFORMING LAB Normal [facility] Comment on above: Order Comment: Speci men Type: TISSUE SPECIMENOrdering Facility: [facility] Address: [address] [place] [address] Result Comment: Diag nostic interpretation performed at [facility], [address] [place] [address] CLIA# [id number] Credit Collections Specialist: Nikita Ventura M.D. Performed By: #### S ####[facility] LABORATORYCLIA [id number] [address] GROSS DESCRIPTION Normal [facility] Comment on above: Order Comment: Speci men Type: TISSUE SPECIMENOrdering Facility: [facility] Address: [address] [place] [address] Result Comment: A. E SOPHAGOGASTRIC JUNCTION RESECTION Received in formalin labeled "esophagogastric junction" are 3 irregular fitzgerald soft tissue fragments aggregating to 0.3 x 0.3 x 0.2 cm. The specimen is submitted entirely in A1. Gross examination performed at [facility], [address] [place] [address] CLIA#[id number] OLS May 08, 2023 2:41 PM Performed By: #### S ####[facility] LABORATORYCLIA [id number] [address] [place] Upper GI endoscopyon 024 Upper GI endoscopy [facility] Gastrointestinal Endoscopy Patient Name: Jacob Landa Procedure Date: 05/07/2023 7:30 AM Date of : 1955 Admit Type: Outpatient Room: [facility] 21 Gender: Male Note Status: Finalized Attending MD: Jurgen Bocanegra MD, [id number] Procedure: Upper GI endoscopy Indications: Diagnostic procedure Providers: Jurgen Bocanegra MD Patient Profile: Refer to note in patient chart for documentation of history and physical. Referring Physician: Jurgen Bocanegra MD (Referring MD) Medicines: See the Anesthesia note for documentation of the administered medications Complications: No immediate complications. Procedure: Pre-Anesthesia Assessment: - Prior to the procedure, a History and Physical was performed, and patient medications and allergies were reviewed. The patient is competent. The risks and benefits of the procedure and the sedation options and risks were discussed with the patient. All questions were answered and informed consent was obtained. Patient identification and proposed procedure were verified by the physician in the pre-procedure area. Mental Status Examination: alert and oriented. Airway Examination: normal oropharyngeal airway and neck mobility. Respiratory Examination: clear to auscultation. CV Examination: normal. ASA Grade Assessment: II - A patient with mild systemic disease. After reviewing the risks and benefits, the patient was deemed in satisfactory condition to undergo the procedure. The anesthesia plan was to use monitored anesthesia care (MAC). Immediately prior to administration of medications, the patient was re-assessed for adequacy to receive sedatives. The heart rate, respiratory rate, oxygen saturations, blood pressure, adequacy of pulmonary ventilation, and response to care were monitored throughout the procedure. The physical status of the patient was re-assessed after the procedure. After obtaining informed consent, the endoscope was passed under direct vision. Throughout the procedure, the patient's blood pressure, pulse, and oxygen saturations were monitored continuously. The Endoscope was introduced through the mouth, and advanced to the second part of duodenum. I was present and participated during the entire procedure, including non-berry portions, and during the administration and monitoring of Moderate Sedation. The upper GI endoscopy was accomplished with ease. The patient tolerated the procedure fairly well. Moderate Sedation: Moderate (conscious) sedation was personally administered by an anesthesia professional. The following parameters were monitored: oxygen saturation, heart rate, blood pressure, and response to care. Exam was performed under monitored anesthesia care (MAC) Findings: The esophageal anastomosis was normal. Biopsies were taken with a cold forceps for histology. Retained fluid was found in the entire examined stomach. The in the duodenum was normal. Estimated Blood Loss: Estimated blood loss was minimal. Impression: - Normal esophageal anastomosis. Biopsied. - Retained gastric fluid. - Normal. Recommendation: - Await pathology results. - Discharge patient to home (ambulatory). - Resume previous diet. - The patient is not currently taking anticoagulant or antiplatelet agents. Procedure Code(s): --- Professional --- 07206, Esophagogastroduodenoscopy , flexible, transoral; with biopsy, single or multiple --- Technical --- 03881, Esophagogastroduodenoscopy , flexible, transoral; with biopsy, single or multiple CPT copyright 2020 [employer]. All rights reserved. The codes documented in this report are preliminary and upon aviation consultant review may be revised to meet current compliance requirements. Attending Participation: I personally performed the entire procedure. Scope In: 8:18:27 AM Scope Out: 8:29:15 AM MD Jurgen Bennett MD 05/07/2023 8:42:29 AM This report has been signed electronically by Jurgen Bocanegra MD Number of Addenda: 0 Note Initiated On: 05/07/2023 7:30 AM Normal [facility] CNOVon 04-25-2023 CNOV Office Visit (AGGENS 3) -- JACOB LANDA ([id number]) 1955 M Date Time Provider Department 04/25/23 2:00 PM JURGEN [email or web address] During your visit today, we recorded the following information about you: Pulse Blood pressure Weight Height 91/minute 122/81 88.5 kg 1.727 m Jurgen Bocanegra MD 04/26/2023 4:22 PM Signed Jurgen Bocanegra M.D. Surgical Oncology [address] [facility], [facility] [address] [address] SUBJECTIVE HPI Jacob Landa is a 68 year old male presenting for evaluation of esophageal cancer. Patient presented with dysphagia which prompted an EGD in early 2020. This demonstrated a distal esophageal adenocarcinoma. His workup did not demonstrate any metastatic disease and he was felt to have T3 N1 cancer. This prompted chemoradiation which completed in June 23, 2020. He then underwent an [place] esophagectomy in August 2020 for which she recovered well. Patient has been on surveillance since then and doing relatively well. Unfortunately, recent imaging demonstrated a PET avid lesion stenosis and possible vertebral/left rib lesions as well. Given these concerns patient was referred to surgical oncology for consideration of EGD. Currently, patient reports that overall he is feeling relatively well. He is tolerating a regular diet. He is not losing weight. He does occasionally have some fatigue but he reports this may be related to when he "overdoes it". Review of Systems Constitutional: Positive for malaise/fatigue. Negative for weight loss. HENT: Negative for sore throat. Eyes: Negative for blurred vision and double vision. Respiratory: Negative for cough, hemoptysis, shortness of breath and stridor. Cardiovascular: Negative for palpitations, claudication and leg swelling. Gastrointestinal: Negative for abdominal pain, blood in stool, nausea and vomiting. Genitourinary: Negative for dysuria, flank pain and hematuria. Musculoskeletal: Negative for falls, joint pain and myalgias. Skin: Negative for rash. Neurological: Negative for speech change, focal weakness and headaches. Endo/Heme/Allergies: Does not bruise/bleed easily. Psychiatric/Behavioral: Negative for depression and memory loss. The patient is not nervous/anxious. PAST MEDICAL HISTORY Diagnosis Date Advance directive discussed with patient 02/09/2022 Discussed 02/2022, packets provided AK (actinic keratosis) 09/07/2020 One on the right forearm dorsal, three on the left forearm dorsal and one left side of face hear hair line about eye level. Tx cryo 09/2020 Aortic valve stenosis 07/26/2015 Asthma BPH (benign prostatic hyperplasia) 07/20/2014 Carpal tunnel syndrome of right wrist Coronary artery disease involving [place] coronary artery without angina pectoris Seeing Dr. Noland DDD (degenerative disc disease), lumbar 11/04/2019 Esophageal adenocarcinoma (HCC) 08/09/2020 Essential hypertension, benign GERD (gastroesophageal reflux disease) 07/12/2009 History of kidney stones 07/20/2014 Iron deficiency anemia due to chronic blood loss 05/25/2020 Iron malabsorption 05/25/2020 Kidney stone Malignant 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) 04/15/2020 Medicare annual wellness visit, subsequent 01/13/2021 Medical B eligibilty date 03/09/19 Date of last exam 01/13/2021 Mixed hyperlipidemia MRSA (methicillin resistant Staphylococcus aureus) 12/01/2016 treated with course of Linezolid beginning 10/29/16 Nonrheumatic aortic valve disorder On tube feeding diet 08/14/2020 History: 65 year old male s/p [place] esophagectomy, Pyloromyotomy, Jejunostomy tube placement for esophageal adenocarcinoma -Diet: Isosource 1.5 to 50 cc hour with 100 cc water flushes 8 times per day and Bene protein 3 times per day Removed 11/17/2020 Personal history of colonic polyps 12/27/2009 Rn Wound's nodules 03/30/2023 Will try pamelor Pleural effusion 03/11/2021 Stable in f/u studies. Primary insomnia 03/30/2023 S/P CABG x 3 2003 S/P CABG x 4 07/23/2017 Situational depression 08/2014 Upper GI bleed 05/25/2020 PAST SURGICAL HISTORY Procedure Laterality Date ADENOIDECTOMY PRIMARY Adenoidectomy AORTIC VALVE RECONSTRUCTION 03/03/2019 s/p TAVR BYP OTH/THN VEIN CAROTID-SUBCLAVIAN 2002 Bypass graft carotid subcl COLONOSCOPY FLX DX W/COLLJ SPEC WHEN PFRMD 02/28/2013 COLONOSCOPY FLX DX W/COLLJ SPEC WHEN PFRMD 12/06/2016 repeat in 5 yrs COLONOSCOPY SCRN NOT HIGH RISK 06/01/2020 COLONOSCOPY W/BIOPSY SINGLE/MULTIPLE 02/22/2007 Diminutive polyp distal [id number] ECHO 01/08/2021 EGD 04/15/2020 HEART CATHETERIZATION 12/2018 with 2 stents IMPLANT MESH OPN HERNIA RPR/DEBRIDEMENT CLOSURE 03/06/2007 LAPAROSCOPY SURG RPR INITIAL INGUINAL HERNIA 03/06/2007 umbilical NM CARDIAC STRESS TEST 01/08/2021 PAST SURGICAL HISTORY OF Right 2016 incision and drainage right axillary a (more content not included)... Normal [facility] CNPNon 04-18-2023 CNPN Telephone (IRRFV) -- JACOB LANDA ([id number]) 1955 M Date Time Provider Department 04/18/23 JESSICA MARTNIES IRRFV During your visit today, we recorded the following information about you: Jessica Martines 04/18/2023 7:55 AM Signed Sent BX for review Jessica Martines 04/18/2023 12:53 PM Signed BX denied per Dr. Ashton No target able lesion Allergies As of Date: 04/18/2023 (No Active Allergies) Date Reviewed: 04/17/2023 Reviewed by: Jessica Laureano, RN - Fully Assessed Reason for Visit: BX denied [Other] Prescriptions as of 04/18/2023 - nortriptyline (PAMELOR) 10 mg capsule Take 1 capsule by mouth daily at bedtime. - sodium chloride (SALINE MIST) 0.65 % nasal spray Use 1 Hutchins in the nose as needed for cold/allergy symptoms. - enteric contrast (will be provided with radiology test) For CT ABD/PEL W IVCON Routine order Administer, As Directed One Time Only, via Oral, Rectal, both Oral and Rectal, Enteric Tube, Stoma or Indwelling Catheter, Enteric Contrast as designated per enteric contrast guidelines - atorvastatin (LIPITOR) 80 mg tablet Take 1 tablet by mouth daily at bedtime. - ezetimibe (ZETIA) 10 mg tablet Take 1 tablet by mouth once daily. - pantoprazole DR (PROTONIX) 40 mg tablet Take 1 tablet by mouth twice daily. - aspirin 81 mg chewable tablet Take 1 tablet by mouth once daily. - metoprolol tartrate, short acting, (LOPRESSOR) 25 mg tablet Take 1 tablet by mouth twice daily. - acetaminophen (TYLENOL) 500 mg tablet Take 500 mg by mouth every 6 hours as needed. - amLODIPine (NORVASC) 10 mg tablet Take 1 tablet by mouth once daily. Meds Comments as of 03/06/2016: Krill Oil 350 Mg Antacid Will follow Dr. Light instructions regarding ASA Problem List As Of Date 04/18/2023 Noted Resolved Essential hypertension, benign [I10] Mixed hyperlipidemia [E78.2] Calculus of kidney [N20.0] 07/26/2015 Asthma [J45.909] 02/19/2006 Cough [R05.9] 02/19/2006 07/26/2015 INGUINAL HERNIA, UNILATERAL W/O GANGRENE/OBSTRU*01/21/2007 07/26/2015 UMBILICAL HERNIA W/O GANGRENE/OBSTRUCTION [K42.*01/21/2007 07/26/2015 Cellulitis and abscess of trunk [L03.319, L02.2*10/24/2007 07/26/2015 Boil of buttock [L02.32] 05/10/2009 07/26/2015 Epidermal inclusion cyst [L72.0] 05/10/2009 07/26/2015 Pyoderma, unspecified [L08.0] 05/10/2009 07/26/2015 Contact dermatitis and other eczema, due to uns*05/10/2009 07/26/2015 Other acne [L70.8] 05/10/2009 07/26/2015 GERD (gastroesophageal reflux disease) [K21.9] 07/12/2009 Personal history of colonic polyps [Z86.010] 12/27/2009 Arthritis of right hand [M19.041] 08/04/2013 07/26/2015 Right carpal tunnel syndrome [G56.01] 08/04/2013 07/26/2015 Hematuria [R31.9] 07/20/2014 12/01/2016 BPH (benign prostatic hyperplasia) [N40.0] 07/20/2014 History of kidney stones [Z87.442] 07/20/2014 Aortic valve stenosis [I35.0] 07/26/2015 Situational depression [F43.21] 07/26/2015 Screening for colon cancer [Z12.11] 11/24/2016 Obesity, Class II, BMI 35-39.9 E66.9 [E66.9] 07/23/2017 07/19/2021 Chest pain [R07.9] 07/23/2017 07/23/2017 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] 07/23/2017 DDD (degenerative disc disease), lumbar [M51.36]11/04/2019 Malignant neoplasm of lower third of esophagus *04/27/2020 Obesity, Class I, BMI 30-34.9 [E66.9] 05/17/2020 07/19/2021 Iron deficiency anemia due to chronic blood los*05/25/2020 Iron malabsorption [K90.9] 05/25/2020 Esophageal adenocarcinoma (HCC) [C15.9] 08/09/2020 Coronary artery disease involving [place] crisostomo* On tube feeding diet [Z78.9] 08/14/2020 01/13/2021 AK (actinic keratosis) [L57.0] 09/07/2020 Medicare annual wellness visit, subsequent [Z00*01/13/2021 Pleural effusion [J90] 03/11/2021 Advance directive discussed with patient [Z71.8*02/09/2022 Medication management [Z79.899] 02/09/2022 Prostate disorder [N42.9] 02/09/2022 Decreased sexual desire [F52.0] 02/09/2022 Rn Wound's nodules [L28.1] 03/30/2023 Primary insomnia [F51.01] 03/30/2023 Encounter Status:Closed by JESSICA MARTINES on 04/18/23 [facility] CBC W Auto Differential pane l (Bld)on 02-13-2023 Basophils (Bld) [#/Vol] 0.04 10*3/uL <0.11 k/uL [facility] Basophils/100 WBC (Bld) 0.9 % [facility] Differential cell count method Nom (Bld) Auto [facility] Eosinophils (Bld) [#/Vol] 0.17 10*3/uL <0.46 k/uL [facility] Eosinophils/100 WBC (Bld) 3.7 % [facility] Erythrocyte distribution width (RBC) [Ratio] 14.6 % 11.5 - 15.0 % [facility] Hematocrit (Bld) [Volume fraction] 42.2 % 39.0 - 51.0 % [facility] Hemoglobin (Bld) [Mass/Vol] 13.6 g/dL 13.0 - 17.0 g/dL [facility] Immature granulocytes (Bld) [#/Vol] <0.10 k/uL [facility] Immature granulocytes/100 WBC (Bld) 0.4 % [facility] Lymphocytes (Bld) [#/Vol] 0.77 10*3/uL Low 1.00 - 4.00 k/uL [facility] Lymphocytes/100 WBC (Bld) 16.7 % [facility] MCH (RBC) [Entitic mass] 27.2 pg 26.0 - 34.0 pg [facility] MCHC (RBC) [Mass/Vol] 32.2 g/dL 30.5 - 36.0 g/dL [facility] MCV (RBC) [Entitic vol] 84.4 fL 80.0 - 100.0 fL [facility] Monocytes (Bld) [#/Vol] 0.40 10*3/uL <0.87 k/uL [facility] Monocytes/100 WBC (Bld) 8.7 % [facility] Neutrophils (Bld) [#/Vol] 3.22 10*3/uL 1.45 - 7.50 k/uL [facility] Neutrophils/100 WBC (Bld) 69.6 % [facility] Nucleated RBC (Bld) [#/Vol] <0.01 k/uL [facility] Nucleated RBC/100 WBC (Bld) [Ratio] 0.0 /100 WBC [facility] Platelet mean volume (Bld) [Entitic vol] 9.7 fL 9.0 - 12.7 fL [facility] [facility] Plate[facility] (Bld) [#/Vol] 158 10*3/uL 150 - 400 k/uL [facility] RBC (Bld) [#/Vol] 5.00 10*6/uL 4.20 - 6.0 0 m/uL [facility] WBC (Bld) [#/Vol] 4.62 10*3/uL 3.70 - 11. 00 k/uL [facility] Comprehensive metabolic 2000 panelon 02-13-2023 Albumin [Mass/Vol] 3.9 g/dL 3.9 - 4.9 g/dL [facility] ALP [Catalytic activity/Vol] 84 U/L 38 - 113 U/L [facility] ALT [Catalytic activity/Vol] 13 U/L 10 - 54 U/L [facility] Anion gap [Moles/Vol] 7 mmol/L Low 9 - 18 mmol/L [facility] AST [Catalytic activity/Vol] 14 U/L 14 - 40 U/L [facility] Bilirubin [Mass/Vol] 0.6 mg/dL 0.2 - 1 .3 mg/dL [facility] Calcium [Mass/Vol] 9.0 mg/dL 8.5 - 10. 2 mg/dL [facility] Chloride [Moles/Vol] 104 mmol/L 97 - 10 5 mmol/L [facility] CO2 [Moles/Vol] 27 mmol/L 22 - 30 mmol/L [facility] Creatinine [Mass/Vol] 0.95 mg/dL 0.73 - 1.22 mg/dL [facility] Estimated Glomerular Filtration Rate 87 mL/min/1.73m >=60 mL/min/1.73m [facility] Glucose [Mass/Vol] 94 mg/dL 74 - 99 mg/dL [facility] Potassium [Moles/Vol] 4.0 mmol/L 3.7 - 5.1 mmol/L [facility] Protein [Mass/Vol] 6.5 g/dL 6.3 - 8.0 g/dL [facility] Sodium [Moles/Vol] 138 mmol/L 136 - 144 mmol/L [facility] Urea nitrogen [Mass/Vol] 12 mg/dL 9 - 24 mg/dL [facility] Basophil percentageOrdered B y: Angel Whitney on 11-15-2022 Bilirubin [Mass/Vol] 0.70 mg/dL 0.20-1.00 [facility] Comment on above: For patients on eltr ombopag therapy, use of Dimension [place]er TBIL is not recommended. Cholesterol [Mass/Vol] 174 mg/dL <200 [facility] Comment on above: <200 mg/dL Desirable 200-240 mg/dL Borderline >240 mg/dL High Risk Protein [Mass/Vol] 6.9 g/dL 6.4-8.2 [facility] Triglyceride [Mass/Vol] 85 mg/dL <199 [facility] Comment on above: The drugs N-Acetylcy steine and Metamizole may falsely depress this assay.Serum Triglycerides Reference Interval Normal <150 mg/dL Borderline high 150 - 199 mg/dL High 200 - 499 mg/dL Very High > or = 500 mg/dL Direct bilirubinOrdered By: Angel Whitney on 11-15-2022 Bilirubin.direct [Mass/Vol] 0.18 mg/dL 0.00-0.30 [facility] Laboratory - Chemistry and C hemistry - challengeOrdered By: Angel Whitney on 11-15-2022 ALP [Catalytic activity/Vol] 89 U/L 45-117 [facility] ALT [Catalytic activity/Vol] 21 U/L 16-61 [facility] Globulin (S) [Mass/Vol] 3.6 g/dL 2.2-4.2 [facility] Serum or plasma albumin alisha urement (mass/volume)Ordered By: Angle Whitney on 11-15-2022 Albumin [Mass/Vol] 3.3 g/dL 3.2-5.0 [facility] Serum or plasma cholesterol in HDL measurement (mass/volume)Ordered By: Angel Whitney on 11-15-2022 Cholesterol in HDL [Mass/Vol] 53 mg/dL >40 [facility] Comment on above: The drugs N-Acetylcy steine and Metamizole may falsely depress this assay. Reference Range HDL <40 mg/dL Low HDL Cholesterol HDL >or= 60 mg/dL High HDL Cholesterol Serum or plasma cholesterol in VLDL measurement (mass/volume)Ordered By: Angel Whitney on 11-15-2022 Cholesterol in VLDL [Mass/Vol] 17 mg/dL 5-40 [facility] Serum or plasma low density lipoprotein (LDL) cholesterol measurement (mass/volume)Ordered By: Angel Whitney on 11-15-2022 Cholesterol in LDL [Mass/Vol] 104 mg/dL 0-130 [facility] Thin prep Papanicolaou smear with manual screeningOrdered By: Angel Whitney on 11-15-2022 Thin prep Papanicolaou smear with manual screening 15 U/L 15-37 [facility] EGD DIAGNOSTICon 08-02-2022 [facility] Basophil percentageOrdered B y: Dr. Danielle on 07-24-2022 Chloride [Moles/Vol] 108 mmol/L 98-107 [facility] Glucose [Mass/Vol] 97 mg/dL 74-106 [facility] Potassium [Moles/Vol] 3.9 mmol/L 3.5-5.1 [facility] Sodium [Moles/Vol] 138 mmol/L 136-145 [facility] Laboratory - Chemistry and C hemistry - challengeOrdered By: Dr. Danielle on 07-24-2022 CO2 [Moles/Vol] 27.0 mmol/L 21.0-32.0 [facility] Urea nitrogen/Creatinine [Mass ratio] 14.0 mg/mg 10-20 [facility] No Panel InformationOrdered By: Dr. Danielle on 07-24-2022 Estimated GFR (MDRD) Amer 96 mL/min >60 [facility] Comment on above: GFR Calc Estimated GFR (MDRD) Non-Af Amer 79 mL/min >60 [facility] Comment on above: Non- GFR Calc Prostate Specific Antigen Total 2.19 ng/mL 0.0-4.0 [facility] Comment on above: This test was perfor med using the TPSA assay method for [employer] chemistry system. Values obtained with differentassay methods cannot be used interchangably.When changing PSA assays in the course of monitoring apatient, additional sequential testing should be carriedout to confirm baseline values. Serum or plasma calcium alisha urement (mass/volume)Ordered By: Dr. Danielle on 07-24-2022 Calcium [Mass/Vol] 8.7 mg/dL 8.5-10.1 [facility] Serum or plasma creatinine m easurement (mass/volume)Ordered By: Dr. Danielle on 07-24-2022 Creatinine [Mass/Vol] 1.00 mg/dL 0.70-1.30 [facility] Comment on above: The validity of the calculated GFR & GFRAA in patients over 70 years has not been determined. Clinical correlation is essential. Serum or plasma urea nitroge n measurement (mass/volume)Ordered By: Dr. Danielle on 07-24-2022 Urea nitrogen [Mass/Vol] 14 mg/dL 7-18 [facility] Thin prep Papanicolaou smear with manual screeningOrdered By: Dr. Danielle on 07-24-2022 Thin prep Papanicolaou smear with manual screening 3 5-15 [facility] Absolute lymphocyte countOrd ered By: ED PROVIDER on 06-23-2022 Lymphocytes Auto (Unsp spec) [#/Vol] 0.55 10*3/uL 0.83-4.51 [facility] Basophil percentageOrdered B y: ED PROVIDER on 06-23-2022 Basophil percentage 0-5 SEEN /hpf 0-5 [facility] Basophils/100 WBC (Bld) 0.3 % 0-1 [facility] Chloride [Moles/Vol] 106 mmol/L 98-107 [facility] Eosinophils/100 WBC (Bld) 0.4 % 0-5 [facility] Glucose [Mass/Vol] 115 mg/dL 74-106 [facility] Comment on above: Fasting Glucose resu lt from 100 to 125 mg/dL suggests IMPAIRED HOMEOSTASIS per A.D.A. criteria. Neutrophils (Bld) [#/Vol] 8.1 10*3/uL 2.0-7.7 [facility] Neutrophils/100 WBC (Bld) 85.0 % 47-70 [facility] Potassium [Moles/Vol] 4.6 mmol/L 3.5-5.1 [facility] Sodium [Moles/Vol] 140 mmol/L 136-145 [facility] WBC (Bld) [#/Vol] 9.5 10*3/uL 4.4-11.0 [facility] Basophil percentageOrdered B y: Dr. Roberts on 06-23-2022 Bilirubin [Mass/Vol] 1.10 mg/dL 0.20-1.00 [facility] Comment on above: For patients on eltr ombopag therapy, use of Dimension [place]er TBIL is not recommended. Protein [Mass/Vol] 7.2 g/dL 6.4-8.2 [facility] Bilirubin Test strip Ql (U)O rdered By: ED PROVIDER on 06-23-2022 Bilirubin Ql (U) Negative Negative [facility] Blood erythrocytes count (nu mber/volume)Ordered By: ED PROVIDER on 06-23-2022 RBC (Bld) [#/Vol] 5.00 10*6/uL 4.6-6.2 [facility] Blood hemoglobin measurement (mass/volume)Ordered By: ED PROVIDER on 06-23-2022 Hemoglobin (Bld) [Mass/Vol] 13.4 g/dL 13.0-16.5 [facility] Blood lymphocytes/100 leukoc ytesOrdered By: ED PROVIDER on 06-23-2022 Lymphocytes/100 WBC (Bld) 5.8 % 19-41 [facility] Blood manual differential co mment interpretation (narrative result)Ordered By: ED PROVIDER on 06-23-2022 Manual differential comment Servando (Bld) [Interp] SCANNED [facility] Comment on above: LYMPHOPENIA Blood monocytes/100 leukocyt esOrdered By: ED PROVIDER on 06-23-2022 Monocytes/100 WBC (Bld) 8.1 % 0-10 [facility] Blood platelet mean volumeOr dered By: ED PROVIDER on 06-23-2022 Platelet mean volume (Bld) [Entitic vol] 9.8 fL 6.2-12.0 [facility] Determination of erythrocyte mean corpuscular volume (MCV)Ordered By: ED PROVIDER on 06-23-2022 MCV (RBC) [Entitic vol] 85.2 fL 80-94 [facility] Direct bilirubinOrdered By: Dr. Roberts on 06-23-2022 Bilirubin.direct [Mass/Vol] 0.28 mg/dL 0.00-0.30 [facility] Hematocrit Auto (Bld) [Volum e fraction]Ordered By: ED PROVIDER on 06-23-2022 Hematocrit (Bld) [Volume fraction] 42.6 % 40-54 [facility] Ketones Test strip Ql (U)Ord ered By: ED PROVIDER on 06-23-2022 Ketones Ql (U) 5 mg/dl Negative [facility] Laboratory - Chemistry and C hemistry - challengeOrdered By: Dr. Roberts on 06-23-2022 ALP [Catalytic activity/Vol] 113 U/L 45-117 [facility] ALT [Catalytic activity/Vol] 36 U/L 16-61 [facility] Globulin (S) [Mass/Vol] 3.6 g/dL 2.2-4.2 [facility] Lipase [Catalytic activity/Vol] 63 U/L 73-393 [facility] Laboratory - Chemistry and C hemistry - challengeOrdered By: ED PROVIDER on 06-23-2022 CO2 [Moles/Vol] 28.0 mmol/L 21.0-32.0 [facility] Urea nitrogen/Creatinine [Mass ratio] 10.7 mg/mg 10-20 [facility] Laboratory - Hematology and Cell countsOrdered By: ED PROVIDER on 06-23-2022 Erythrocyte distribution width (RBC) [Entitic vol] 44.3 fL 35.1-43.9 [facility] Erythrocyte distribution width (RBC) [Ratio] 14.4 % 11.6-14.6 [facility] Immature granulocytes/100 WBC (Bld) 0.400 % 0.0-0.9 [facility] Comment on above: IG% - Immature Granu locytes (promyelocytes, myelocytes and metamyelocytes) > 1% indicates that a LEFT SHIFT is Present. MCH (RBC) [Entitic mass] 26.8 pg 27.0-32.0 [facility] Nucleated RBC/100 WBC (Bld) [Ratio] 0 % 0-5 [facility] MCHC Auto (RBC) [Mass/Vol]Or dered By: ED PROVIDER on 06-23-2022 MCHC (RBC) [Mass/Vol] 31.5 g/dL 32-36 [facility] Mucus LM Ql (Urine sed)Order ed By: ED PROVIDER on 06-23-2022 Mucus Ql (Urine sed) 1+ /hpf [facility] Nitrite Test strip Ql (U)Ord ered By: ED PROVIDER on 06-23-2022 Nitrite Ql (U) Negative Negative [facility] No Panel InformationOrdered By: ED PROVIDER on 06-23-2022 Estimated Creatinine Clearance Calc 43.20 ml/min [facility] Estimated GFR (MDRD) Amer 52 mL/min >60 [facility] Comment on above: GFR Calc Estimated GFR (MDRD) Non-Af Amer 43 mL/min >60 [facility] Comment on above: Non- GFR Calc Platelets bldOrdered By: ED PROVIDER on 06-23-2022 Platelets (Bld) [#/Vol] 173 10*3/uL 150-450 [facility] Protein Test strip Ql (U)Ord ered By: ED PROVIDER on 06-23-2022 Protein Ql (U) 15 mg/dl Negative [facility] Serum or plasma albumin alisha urement (mass/volume)Ordered By: Dr. Roberts on 06-23-2022 Albumin [Mass/Vol] 3.6 g/dL 3.2-5.0 [facility] Serum or plasma calcium laisha urement (mass/volume)Ordered By: ED PROVIDER on 06-23-2022 Calcium [Mass/Vol] 9.5 mg/dL 8.5-10.1 [facility] Serum or plasma creatinine m easurement (mass/volume)Ordered By: ED PROVIDER on 06-23-2022 Creatinine [Mass/Vol] 1.69 mg/dL 0.70-1.30 [facility] Comment on above: The validity of the calculated GFR & GFRAA in patients over 70 years has not been determined. Clinical correlation is essential. Serum or plasma urea nitroge n measurement (mass/volume)Ordered By: ED PROVIDER on 06-23-2022 Urea nitrogen [Mass/Vol] 18 mg/dL 7-18 [facility] Squamous epithelial cells de tection in urine sediment by light microscopyOrdered By: ED PROVIDER on 06-23-2022 Epithelial cells.squamous LM Ql (Urine sed) 0 SEEN /hpf 0-5 [facility] Thin prep Papanicolaou smear with manual screeningOrdered By: Dr. Roberts on 06-23-2022 Thin prep Papanicolaou smear with manual screening 19 U/L 15-37 [facility] Thin prep Papanicolaou smear with manual screeningOrdered By: ED PROVIDER on 06-23-2022 Thin prep Papanicolaou smear with manual screening 6 5-15 [facility] Urine blood detectionOrdered By: ED PROVIDER on 06-23-2022 RBC Ql (U) 25 /ul Negative [facility] RBC Ql (U) 0 SEEN /hpf 0-5 [facility] Urine clarityOrdered By: ED PROVIDER on 06-23-2022 Clarity (U) Clear Clear [facility] Urine color determinationOrd ered By: ED PROVIDER on 06-23-2022 Color (U) Yellow Yellow [facility] Urine glucose detectionOrder ed By: ED PROVIDER on 06-23-2022 Glucose Ql (U) Normal mg/dl Normal [facility] Urine leukocyte esterase det ection by dipstickOrdered By: ED PROVIDER on 06-23-2022 Leukocyte esterase Test strip Ql (U) 25 /ul Negative [facility] Urine pHOrdered By: ED PROVI TRENA on 06-23-2022 pH (U) 5.0 [pH] 5.0 - 8.0 [facility] Urine sediment bacteria coun t by microscopy (number/high power field)Ordered By: ED PROVIDER on 06-23-2022 Bacteria LM.HPF (Urine sed) [#/Area] 0 /[HPF] None Seen [facility] Urine specific gravity measu rementOrdered By: ED PROVIDER on 06-23-2022 Specific gravity (U) [Rel density] 1.025 1.002-1.030 [facility] Urobilinogen Auto test strip Ql (U)Ordered By: ED PROVIDER on 06-23-2022 Urobilinogen Ql (U) Normal mg/dl Normal [facility] XR RIBS/CHEST 3V AP RIB/OBLS /CXR RIGHTon 06-09-2022 [facility] XR Ribs - right Views and Ch est PAon 06-09-2022 IMPRESSION: 1. No acute fracture 2. Bilateral pleural effusions. Left basilar atelectasis. Gunner'S Mate: MORGAN Transcribe Date/Time: Jun 09 2022 3:18P Dictated by : JORDANA SEALS MD This examination was interpreted and the report reviewed and electronically signed by: JORDANA SEALS MD on Jun 09 2022 3:22PM [facility] DIVISION OF RADIOLOGY * * *Final Report* * * DATE OF EXAM: Jun 09 2022 3:12PM WOX [id number] - XR RIB/CHST 3V AP RIB/OBL/CHST R / PROCEDURE REASON: Rib injury * * * * Physician Interpretation * * * * EXAMINATION: X-ray chest and right ribs Clinical History: Rib injury M: XC1_4 Comparison: Chest x-ray 04/11/2021 RESULT: Lines, tubes, and devices: None. Lungs and pleura: Small bilateral pleural effusions. Left basilar atelectasis. No pneumothorax. Cardiomediastinal silhouette: Stable cardiomediastinal silhouette. Musculoskeletal: Median sternotomy wires are noted. No acute fracture. DIVISION OF RADIOLOGY Provider, [facility] - 06/09/2022 * * *Final Report* * * DATE OF EXAM: Jun 09 2022 3:12PM WOX [id number] - XR RIB/CHST 3V AP RIB/OBL/CHST R / PROCEDURE REASON: Rib injury * * * * Physician Interpretation * * * * EXAMINATION: X-ray chest and right ribs Clinical History: Rib injury M: XC1_4 Comparison: Chest x-ray 04/11/2021 RESULT: Lines, tubes, and devices: None. Lungs and pleura: Small bilateral pleural effusions. Left basilar atelectasis. No pneumothorax. Cardiomediastinal silhouette: Stable cardiomediastinal silhouette. Musculoskeletal: Median sternotomy wires are noted. No acute fracture. IMPRESSION IMPRESSION: 1. No acute fracture 2. Bilateral pleural effusions. Left basilar atelectasis. Gunner'S Mate: PSCB Transcribe Date/Time: Jun 09 2022 3:18P Dictated by : JORDANA SEALS MD This examination was interpreted and the report reviewed and electronically signed by: JORDANA SEALS MD on Jun 09 2022 3:22PM EST [facility] Radiology Study observation (narrative) [facility] XR Ribs - right Views and Ch est PAOrdered By: [facility] Provider on 06-09-2022 [facility] No Panel Informationon 05-22 [facility] No Panel Informationon 02-20 [facility] EGD DIAGNOSTICon 11-09-2021 [facility] No Panel Informationon 10-03 [facility] EGD DIAGNOSTICon 09-07-2021 [facility] XR ABDOMEN APon 08-25-2020 XR ABDOMEN AP ORIGINAL XR ABDOMEN AP CLINICAL STATEMENT: j tube placement, please push contrast through j tube. COMPARISON: None FINDINGS: A entry level truck driver was obtained demonstrating no evidence of obstruction. Contrast was instilled with subsequent filling of the proximal jejunum. No free contrast demonstrated within the abdomen. IMPRESSION: Appropriately placed J-tube. I have personally reviewed the images of this examination and agree with the resident's findings and interpretation. Interpreted By: Nicolás Benoit DO Preliminary Report By: Kristin Huerta DO Electronically Signed By: Nicolás Benoti DO Dictated Date: 08/25/2020 5:47:51 PM Prelim Date: 08/25/2020 5:50:02 PM Sign Date: 08/25/2020 6:16:37 PM Ordering Provider:Momo Ortiz [facility] ([place]) CNOVon 07-14-2020 CNOV Office Visit (THOR ) -- JACOB LANDA ([id number]) 1955 M Date Time Provider Department 07/14/20 2:20 PM RENETTA RADFORD During your visit today, we recorded the following information about you: Pulse Respiration Blood pressure Weight 100/minute 16/minute 135/78 108 kg Height 1.778 m Renetta Radford MD 07/15/2020 10:05 AM Signed I had the pleasure of seeing Mr. 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 He reports tolerating his therapy quite well, he has regained normal swallowing function and can eat meats and breads without difficulty. He denies any new chest or abdominal symptoms. We reviewed his scans which reveal no evidence of disease progression. We had a lengthy discussion about his upcoming surgical resection and I encouraged him to increase his physical activity level preop to improve his strength before surgery. He has a tentative date set for 08/09; we will plan to bring him back preop for a standard preop evaluation. I have spent 20 minutes in counseling and coordination of care for this patient. I spent more than 50% of the visit face to face with the patient counseling on treatment options and the subsequent plan. Renetta Radford MD Pt here for follow up visit: RESTAGING Malignant 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) +1 more Last clinic note 05/14/2020 per Renetta Radford M.D. Impression: I had a lengthy discussion with Mr. Landa and reviewed his imaging with him. I believe he is an appropriate candidate for trimodality therapy for his esophageal cancer, Dr. Jenkins and Kirill have already evaluated the patient and are prepared to embark on treatment. 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 ? Plan: 1) Cards clearance from primary fiber optic assembly worker 2) RTC following completion of induction therapy for restaging and surgical planning ? Today's visit 07/14/2020 BP 135/78 (BP Site: Left Arm, BP Position: Sitting, BP Cuff Size: Large Adult) Pulse 100 Resp 16 Ht 177.8 cm (5' 10") Wt 108 kg (238 lb) SpO2 97% BMI 34.15 kg/m? Patient completed radiation and chemo has no complaints. Sumi Tan RN CT CHEST 07/14/2020 in process POST INDUCTION FOLLOW UP: Chemotherapy Completion: 06/28/2020 (Dr Jenkins) ? Radiation Completion: 06/23/2020 (Dr Roy) RADIATION ONCOLOGY - COMPLETION NOTE ?DATE OF SIMULATION: ??05/17/20?DATES OF TREATMENT: ??05/24/20 - 06/23/20 ? 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 ? DELIVERED DOSE: ?4140 cGy in 23 fractions treating to the 94.7% isodose ?line with 15 MV and 4 boles. IGRT with daily CBCTs. Concurrent ?chemotherapy with weekly Carboplatin/Taxol. ? Patient will need return visit with restaging testing on July 09 [facility] or July [address] [place] [address] Chest/Abd/Pelvis Anticipated OR Date: 08/09/2020 MAIN [facility] 08/06/2020 MAIN COVID 08/06/2020 MAIN ? Alisa Estrada RN ? Stress Test 06/25/2020 Conclusion: Normal exercise myocardial perfusion stress test at a moderate workload with no evidence of ischemia. Good functional capacity. No angina noted. ? OPD note 06/25/2020 Hem/Onc ? ? Referring Provider: RENETTA RADFORD [[id number]] Allergies As of Date: 07/14/2020 Noted Allergy Reaction Environmental allergies [Other] 02/22/2006 Comments: Cats, dogs, dust mites, trees, grasses, weeds, ragweed Date Reviewed: 07/14/2020 Reviewed by: Sumi (Rn) MICHELE Tan - Fully Assessed Primary Visit Diagnosis: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] Prescriptions as of 07/14/2020 Sig: ONDANSETRON HCL 8 MG TABLET Take 1 tablet by mouth every * EZETIMIBE 10 MG TABLET Take 1 tablet by mouth once d* PANTOPRAZOLE 40 MG TABLET,DEL* Take 1 tablet by mouth daily * AMLODIPINE 10 MG TABLET Take 1 tablet by mouth once d* RANOLAZINE ER 500 MG TABLET,E* Take 1 tablet by mouth twice * CLOPIDOGREL 75 MG TABLET Take 1 tablet by mouth once d* ACETAMINOPHEN 500 MG TABLET Take 2 tablets by mouth every* * LISINOPRIL 40 MG TABLET Take 1 tablet by mouth once d* * TOPROL XL 100 MG TABLET,EXTEN* Take one(1) tablet daily. * ASPIRIN 81 MG TABLET Take one(1) tablet daily. * NITROGLYCERIN 0.4 MG SUBLINGU* 1 sl q 5min prn chest pain ATORVASTATIN 80 MG TABLET Take 1 tablet by mouth daily * Problem List As Of Date 07/14/2020 Noted Resolved Essential hypertension, benign [I10] Hyperlipidemia LDL goal <100 [E78.5] Calculus of kidney [N20.0] 07/26/2015 Asthma [J45.909] 02/19/2006 Cough [R05] 02/19/2006 07/26/2015 INGUINAL HERNIA, UNILATERAL W/O GANGRENE (more content not included)... Normal [facility] CT ABD/PEL W IVCONon 021 CT ABD/PEL W IVCON * * *Final Report* * * DATE OF EXAM: Jul 14 2020 12:34PM [facility] 0530 - CT ABD/PEL W IVCON / PROCEDURE REASON: Malignant neoplasm of esophagus, unspecified location (HCC) * * * * Physician Interpretation * * * * RESULT: EXAMINATION: CT ABDOMEN AND PELVIS WITH IV CONTRAST CLINICAL HISTORY: Esophageal cancer. TECHNIQUE: CT of the abdomen and pelvis was performed using standard technique, scanning from just above the dome of the diaphragm to the symphysis pubis. MQ: CTAP_3 Contrast: IV: 146 ml of Omnipaque 300 Oral: 900 ml of 50ML Omnipaque [address] Radiation dose: Integrated Dose-length product (DLP) for this visit = 1425 mGy*cm. CT Dose Reduction Employed: Automated exposure control(AEC) and iterative recon COMPARISON: CT 04/15/2020. PET/CT 05/11/2020 RESULT: Liver: No mass. Biliary: No bile duct dilation. Gallbladder is unremarkable. Spleen: No mass. No splenomegaly. Pancreas: No mass or duct dilation. Adrenals: Stable 0.9 cm right adrenal myelolipoma. Normal left adrenal gland. Kidneys: Stable small right renal cysts. No hydronephrosis. GI tract: Wall thickening of the distal esophagus corresponding to the patient's known malignancy. No dilated bowel. Colonic diverticulosis. Lymph nodes: No abdominal or pelvic lymphadenopathy. Mesentery/Peritoneum: No ascites or mass. Retroperitoneum: No mass. Vasculature: The celiac axis and SMA are patent. The portal vein and branches, splenic vein, SMV, and hepatic veins are patent. Arterial atherosclerotic disease without aneurysm. Pelvis: No mass, ascites or fluid collection. Enlarged prostate. Bones/Soft Tissues: Status post right inguinal hernia repair. Lower thorax: A chest CT performed will be reported separately. Rheostat Assembler (topogram) images: No additional findings. IMPRESSION: Stable exam. No metastatic disease in the abdomen or pelvis. Transcribed Using Voice Recognition Transcribe Date/Time: Jul 14 2020 3:58P Dictated by: BENITO ALBRIGHT MD This examination was interpreted and the report reviewed and electronically signed by: BENITO ALBRIGHT MD on Jul 14 2020 4:07PM EST [id number] [facility] CT CHEST W IVCONon CT CHEST W IVCON * * *Final Report* * * DATE OF EXAM: Jul 14 2020 12:34PM HCC 0539 - CT CHEST W IVCON / PROCEDURE REASON: Malignant neoplasm of esophagus, unspecified location (HCC) * * * * Physician Interpretation * * * * RESULT: EXAMINATION: CHEST CT WITH CONTRAST CLINICAL HISTORY: Malignant neoplasm of the esophagus. Technique: Spiral CT acquisition of the chest from the thoracic inlet to the upper abdomen following IV contrast. MQ: [id number]_6 Contrast: 146 mL Omnipaque [address] Radiation dose: Integrated Dose-length product (DLP) for this visit = 1425 mGy*cm CT Dose Reduction Employed: Automated exposure control(AEC) and iterative recon Comparison: 04/15/2020 RESULT: Limitations: None. Lines, tubes, and devices: Sternotomy wires are present. Prosthetic aortic valvular endograft is present. Lung parenchyma and airways: No consolidation. No suspicious pulmonary nodule. The central airways are patent. There is minor tree-in-bud nodular interstitial opacity in the right lower lung posterolaterally near the costophrenic sulcus (image 87:4) suggestive of mild bronchiolitis Pleural space: No pleural effusion. No pleural thickening. Lower neck, lymph nodes, and mediastinum: The imaged thyroid gland is normal. No lymphadenopathy in the supraclavicular, axillary, mediastinal, or hilar regions. Abnormal thickening of the distal esophagus and gastroesophageal junction is identified. Subjectively this appears slightly less prominent than on the prior study. This measures 3.3 cm in diameter on the current exam where previously this measured 3.7 cm. Heart, pericardium, and thoracic vessels: The thoracic aorta and main pulmonary artery are normal in caliber. The cardiac chambers are normal in size. Coronary artery stents and atherosclerotic calcifications are noted, although the study is not optimized for coronary assessment. No pericardial effusion or thickening. Bones and soft tissues: No destructive bone lesion. Chest wall is unremarkable. Upper abdomen: No abnormality in the imaged upper abdomen. Rheostat Assembler (topogram) images: No additional findings. IMPRESSION: Mildly decreased thickening of the distal esophagus in the region of known carcinoma. No evidence for lymphadenopathy. No evidence to suggest metastatic disease within the chest. Incidental findings as indicated. Transcribed Using Voice Recognition Transcribe Date/Time: Jul 15 2020 2:19P Dictated by: SHANIQUE LEYVA MD This examination was interpreted and the report reviewed and electronically signed by: SHANIQUE LEYVA MD on Jul 15 2020 2:24PM EST [id number] Normal [facility] Echo 2D Doppler Coloron 11-2 TRANSTHORACIC ECHOCARDIOGRAM PATIENT: Jacob Landa STUDY DATE: 03/03/2020 : 1955 AGE: 64 HT/WT: 175.3 cm (69 118.8 kg in) (261.4 lb) GENDER: M BP: 108 / 60 LOCATION: [place] [address] [address] STATUS: *ORDERING PHYSICIAN: * 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 *READING PHYSICIAN: * Steve Washington MD, *AGRICULTURAL CHEMICALS INSPECTOR: * Cory Masterson FACC [facility] INDICATIONS: S/p TAVR (Z95.2). CONCLUSIONS SUMMARY: 1. Left ventricle: Systolic function is normal by the biplane method of disks. The estimated ejection fraction is 64%. 2. Right ventricle: Systolic function is normal. 3. Aortic valve: Prior transcatheter aortic valve replacement. There is a well-seated, normally functioning 26 mm bioprosthetic valve (Marc Vilma 3). There is mild perivalvular regurgitation. The mean systolic gradient is 12 mm Hg. The peak systolic gradient is 22 mm Hg. The valve area by the velocity-time integral method is 1.5 cm^2. STUDY DATA: Complete transthoracic echocardiogram. Procedure: Image quality was fair. The study was technically limited due to poor acoustic window availability, body habitus, and respiratory interference. M-mode, complete 2D, strain rate, complete spectral Doppler, and color flow Doppler images were acquired and archived for permanent storage and are available for subsequent review. Study status: Routine. Patient status: Outpatient. FINDINGS LEFT VENTRICLE: Average LV global longitudinal strain is -16. The cavity size is normal. Wall thickness is normal. Systolic function is normal by the biplane method of disks. The estimated ejection fraction is 64%. There are no regional wall motion abnormalities. RIGHT VENTRICLE: The cavity size is mildly dilated. Systolic function is normal. Right ventricular systolic pressure is within the normal range. VENTRICULAR SEPTUM: There is no evidence of a ventricular septal defect. LEFT ATRIUM: The atrium is normal in size. RIGHT ATRIUM: The atrium is normal in size. ATRIAL SEPTUM: Color Doppler shows no shunt. MITRAL VALVE: Mildly calcified annulus. Doppler: There is mild, 1+ regurgitation. The peak diastolic gradient is 4 mm Hg. AORTIC VALVE: Prior transcatheter aortic valve replacement. There is a well-seated, normally functioning 26 mm bioprosthetic valve (Marc Vilma 3). Normal thickness leaflets. Doppler: There is mild perivalvular regurgitation. Dimensionless index: 0.5. The valve area by the velocity-time integral method is 1.5 cm^2. The valve area index by the velocity-time integral method is 0.6 cm^2/m^2. The mean systolic gradient is 12 mm Hg. The peak systolic gradient is 22 mm Hg. TRICUSPID VALVE: Structurally normal valve. Doppler: There is trivial, less than 1+ regurgitation. PULMONIC VALVE: Structurally normal valve. Doppler: There is trivial, less than 1+ regurgitation. AORTA: The aorta is normal. PULMONARY ARTERY: Main pulmonary artery: Normal. PERICARDIUM: There is no pericardial effusion. SYSTEMIC VEINS: Inferior vena cava: The vessel is normal. The IVC collapses by greater than 50% with inspiration. Measurements Value 04/16/2019 Reference Ascending aorta ID, A-P, 3.7 cm 3.0 S Ascending aorta ID/bsa, 1.5 cm/m^2 1.2 A-P, S Left ventricle Value 04/16/2019 Reference GLS, 2D 15.87 % LV ID, ED 4.6 cm 4.6 4.2 - 5.8 LV ID, ES 2.9 cm 2.4 2.5 - 4.0 LV ID/bsa, ED (L) 1.9 cm/m^2 1.9 2.2 - 3.0 LV ID/bsa, ES (L) 1.2 cm/m^2 1.0 1.3 - 2.1 LV PW thickness, ED (H) 1.1 cm 1.4 0.6 - 1.0 LV PW/LV ID ratio, ED 0.24 0.29 LV wall mass 190 g 274 96 - 200 LV wall mass/bsa 77 g/m^2 112 50 - 102 Stroke volume/bsa, 1-p 39.8 ml/m^2 17 A2C LV end-diastolic volume, 178 ml 110 69 - 185 1-p A4C LV end-systolic volume, 62 ml 42 22 - 78 1-p A4C LV end-diastolic volume, (H) 173 ml 94 62 - 150 2-p LV end-systolic volume, (H) 63 ml 42 21 - 61 2-p LV ejection fraction, 2-p 64 % 55 52 - 72 LV E/e', lateral 13.6 8.2 LV E/e', medial 14.1 8.9 LV E/e', average 13.8 8.5 Ventricular septum Value 04/16/2019 Reference IVS thickness, ED (H) 1.2 cm 1.6 0.6 - 1.0 LVOT Value 04/16/2019 Reference LVOT ID, A-P 1.9 cm 2.1 LVOT mean velocity, S 0.7 m/sec 0.9 LVOT peak gradient, S 5 mm Hg 6 Stroke volume (SV), LVOT 67 ml 86 DP Stroke index (SV/bsa), 27 ml/m^2 35 LVOT DP Aortic valve Value 04/16/2019 Reference Aortic mean gradient, S 12 mm Hg 11 Aortic peak gradient, S 22 mm Hg 18 DI 0.5 0.62 Aortic valve area, VTI 1.5 cm^2 2.1 Aortic valve area/bsa, 0.6 cm^2/m^2 0.8 VTI Left atrium Value 04/16/2019 Reference LA volume/bsa, ES, 2-p 27 ml/m^2 18 16 - 34 Mitral valve Value 04/16/2019 Reference Mitral E-wave peak 1 m/sec 0.7 velocity Mitral A-wave peak 1 m/sec 0.7 velocity Mitral deceleration time 178 ms 292 Mitral peak gradient, D 4 mm Hg 2 Mitral E/A ratio, peak 1.0 1.1 Right atrium Value 04/16/2019 Reference RA area, ES, A4C 16 cm^2 11 10 - 18 Systemic veins Value 04/16/2019 Reference Estimated RAP 3 mm Hg 3 Right ventricle Value 04/16/2019 Reference RV ID, minor axis, ED, 4.0 cm 3.6 2.5 - 4.1 A4C base RV ID, minor axis, ED, 2.6 cm 3.2 1.9 - 3.5 A4C mid TAPSE, 2D 2.5 cm 1.3 1.7 - 3.1 RV s', lateral 10.1 cm/sec 11.6 6.0 - 13.4 Legend: (L) and (H) steve values outside specified reference range. Electronically signed by Steve Washington MD, [facility] 03/03/2020 14:59 Prior Signatures: [facility] Incoming Cardiology Results From [employer] - 03/03/2020 2:59 PM EST TRANSTHORACIC ECHOCARDIOGRAM PATIENT: Jacob Landa STUDY DATE: 03/03/2020 : 1955 AGE: 64 HT/WT: 175.3 cm (69 118.8 kg in) (261.4 lb) GENDER: M BP: 108 / 60 LOCATION: [place] [address] [address] STATUS: *ORDERING PHYSICIAN: * 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 *READING PHYSICIAN: * Steve Washington MD, *AGRICULTURAL CHEMICALS INSPECTOR: * AlejaMegnery [facility] [address] INDICATIONS: S/p TAVR (Z95.2). CONCLUSIONS SUMMARY: 1. Left ventricle: Systolic function is normal by the biplane method of disks. The estimated ejection fraction is 64%. 2. Right ventricle: Systolic function is normal. 3. Aortic valve: Prior transcatheter aortic valve replacement. There is a well-seated, normally functioning 26 mm bioprosthetic valve (Marc Vilma 3). There is mild perivalvular regurgitation. The mean systolic gradient is 12 mm Hg. The peak systolic gradient is 22 mm Hg. The valve area by the velocity-time integral method is 1.5 cm^2. STUDY DATA: Complete transthoracic echocardiogram. Procedure: Image quality was fair. The study was technically limited due to poor acoustic window availability, body habitus, and respiratory interference. M-mode, complete 2D, strain rate, complete spectral Doppler, and color flow Doppler images were acquired and archived for permanent storage and are available for subsequent review. Study status: Routine. Patient status: Outpatient. FINDINGS LEFT VENTRICLE: Average LV global longitudinal strain is -16. The cavity size is normal. Wall thickness is normal. Systolic function is normal by the biplane method of disks. The estimated ejection fraction is 64%. There are no regional wall motion abnormalities. RIGHT VENTRICLE: The cavity size is mildly dilated. Systolic function is normal. Right ventricular systolic pressure is within the normal range. VENTRICULAR SEPTUM: There is no evidence of a ventricular septal defect. LEFT ATRIUM: The atrium is normal in size. RIGHT ATRIUM: The atrium is normal in size. ATRIAL SEPTUM: Color Doppler shows no shunt. MITRAL VALVE: Mildly calcified annulus. Doppler: There is mild, 1+ regurgitation. The peak diastolic gradient is 4 mm Hg. AORTIC VALVE: Prior transcatheter aortic valve replacement. There is a well-seated, normally functioning 26 mm bioprosthetic valve (Marc Vilma 3). Normal thickness leaflets. Doppler: There is mild perivalvular regurgitation. Dimensionless index: 0.5. The valve area by the velocity-time integral method is 1.5 cm^2. The valve area index by the velocity-time integral method is 0.6 cm^2/m^2. The mean systolic gradient is 12 mm Hg. The peak systolic gradient is 22 mm Hg. TRICUSPID VALVE: Structurally normal valve. Doppler: There is trivial, less than 1+ regurgitation. PULMONIC VALVE: Structurally normal valve. Doppler: There is trivial, less than 1+ regurgitation. AORTA: The aorta is normal. PULMONARY ARTERY: Main pulmonary artery: Normal. PERICARDIUM: There is no pericardial effusion. SYSTEMIC VEINS: Inferior vena cava: The vessel is normal. The IVC collapses by greater than 50% with inspiration. Measurements Value 04/16/2019 Reference Ascending aorta ID, A-P, 3.7 cm 3.0 S Ascending aorta ID/bsa, 1.5 cm/m^2 1.2 A-P, S Left ventricle Value 04/16/2019 Reference GLS, 2D 15.87 % LV ID, ED 4.6 cm 4.6 4.2 - 5.8 LV ID, ES 2.9 cm 2.4 2.5 - 4.0 LV ID/bsa, ED (L) 1.9 cm/m^2 1.9 2.2 - 3.0 LV ID/bsa, ES (L) 1.2 cm/m^2 1.0 1.3 - 2.1 LV PW thickness, ED (H) 1.1 cm 1.4 0.6 - 1.0 LV PW/LV ID ratio, ED 0.24 0.29 LV wall mass 190 g 274 96 - 200 LV wall mass/bsa 77 g/m^2 112 50 - 102 Stroke volume/bsa, 1-p 39.8 ml/m^2 17 A2C LV end-diastolic volume, 178 ml 110 69 - 185 1-p A4C LV end-systolic volume, 62 ml 42 22 - 78 1-p A4C LV end-diastolic volume, (H) 173 ml 94 62 - 150 2-p LV end-systolic volume, (H) 63 ml 42 21 - 61 2-p LV ejection fraction, 2-p 64 % 55 52 - 72 LV E/e', lateral 13.6 8.2 LV E/e', medial 14.1 8.9 LV E/e', average 13.8 8.5 Ventricular septum Value 04/16/2019 Reference IVS thickness, ED (H) 1.2 cm 1.6 0.6 - 1.0 LVOT Value 04/16/2019 Reference LVOT ID, A-P 1.9 cm 2.1 LVOT mean velocity, S 0.7 m/sec 0.9 LVOT peak gradient, S 5 mm Hg 6 Stroke volume (SV), LVOT 67 ml 86 DP Stroke index (SV/bsa), 27 ml/m^2 35 LVOT DP Aortic valve Value 04/16/2019 Reference Aortic mean gradient, S 12 mm Hg 11 Aortic peak gradient, S 22 mm Hg 18 DI 0.5 0.62 Aortic valve area, VTI 1.5 cm^2 2.1 Aortic valve area/bsa, 0.6 cm^2/m^2 0.8 VTI Left atrium Value 04/16/2019 Reference LA volume/bsa, ES, 2-p 27 ml/m^2 18 16 - 34 Mitral valve Value 04/16/2019 Reference Mitral E-wave peak 1 m/sec 0.7 velocity Mitral A-wave peak 1 m/sec 0.7 velocity Mitral deceleration time 178 ms 292 Mitral peak gradient, D 4 mm Hg 2 Mitral E/A ratio, peak 1.0 1.1 Right atrium Value 04/16/2019 Reference RA area, ES, A4C 16 cm^2 11 10 - 18 Systemic veins Value 04/16/2019 Reference Estimated RAP 3 mm Hg 3 Right ventricle Value 04/16/2019 Reference RV ID, minor axis, ED, 4.0 cm 3.6 2.5 - 4.1 A4C base RV ID, minor axis, ED, 2.6 cm 3.2 1.9 - 3.5 A4C mid TAPSE, 2D 2.5 cm 1.3 1.7 - 3.1 RV s', lateral 10.1 cm/sec 11.6 6.0 - 13.4 Legend: (L) and (H) steve values outside specified reference range. Electronically signed by Steve Washington MD, [facility] 03/03/2020 14:59 Prior Signatures: [facility] Echo Complete w/wo Contrasto n 03-03-2020 Echo Complete w/wo Contrast Patient Name: JACOB LANDA Ultrasound Exam Date/Time 03/03/2020 13:45:46 EST Exam Echo Complete w/wo Contrast Ordering Physician CORRINE HARDING, VERN Accession Number [id number] Reason For Exam one yr post TAVR Report TRANSTHORACIC ECHOCARDIOGRAM PATIENT: Jacob Landa STUDY DATE: 03/03/2020 : 1955 AGE: 64 HT/WT: 175.3 cm (69 118.8 kg in) (261.4 lb) GENDER: M BP: 108 / 60 LOCATION: [place] [address] [address] STATUS: *ORDERING PHYSICIAN: * 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 *READING PHYSICIAN: * Steve Washington MD, *AGRICULTURAL CHEMICALS INSPECTOR: * Cory Masterson [facility] INDICATIONS: S/p TAVR (Z95.2). CONCLUSIONS SUMMARY: 1. Left ventricle: Systolic function is normal by the biplane method of disks. The estimated ejection fraction is 64%. 2. Right ventricle: Systolic function is normal. 3. Aortic valve: Prior transcatheter aortic valve replacement. There is a well-seated, normally functioning 26 mm bioprosthetic valve (Marc Vilma 3). There is mild perivalvular regurgitation. The mean systolic gradient is 12 mm Hg. The peak systolic gradient is 22 mm Hg. The valve area by the velocity-time integral method is 1.5 cm^2. STUDY DATA: Complete transthoracic echocardiogram. Procedure: Image quality was fair. The study was technically limited due to poor acoustic window availability, body habitus, and respiratory interference. M-mode, complete 2D, strain rate, complete spectral Doppler, and color flow Doppler images were acquired and archived for permanent storage and are available for subsequent review. Study status: Routine. Patient status: Outpatient. FINDINGS LEFT VENTRICLE: Average LV global longitudinal strain is -16. The cavity size is normal. Wall thickness is normal. Systolic function is normal by the biplane method of disks. The estimated ejection fraction is 64%. There are no regional wall motion abnormalities. RIGHT VENTRICLE: The cavity size is mildly dilated. Systolic function is normal. Right ventricular systolic pressure is within the normal range. VENTRICULAR SEPTUM: There is no evidence of a ventricular septal defect. LEFT ATRIUM: The atrium is normal in size. RIGHT ATRIUM: The atrium is normal in size. ATRIAL SEPTUM: Color Doppler shows no shunt. MITRAL VALVE: Mildly calcified annulus. Doppler: There is mild, 1+ regurgitation. The peak diastolic gradient is 4 mm Hg. AORTIC VALVE: Prior transcatheter aortic valve replacement. There is a well-seated, normally functioning 26 mm bioprosthetic valve (Marc Vilma 3). Normal thickness leaflets. Doppler: There is mild perivalvular regurgitation. Dimensionless index: 0.5. The valve area by the velocity-time integral method is 1.5 cm^2. The valve area index by the velocity-time integral method is 0.6 cm^2/m^2. The mean systolic gradient is 12 mm Hg. The peak systolic gradient is 22 mm Hg. TRICUSPID VALVE: Structurally normal valve. Doppler: There is trivial, less than 1+ regurgitation. PULMONIC VALVE: Structurally normal valve. Doppler: There is trivial, less than 1+ regurgitation. AORTA: The aorta is normal. PULMONARY ARTERY: Main pulmonary artery: Normal. PERICARDIUM: There is no pericardial effusion. SYSTEMIC VEINS: Inferior vena cava: The vessel is normal. The IVC collapses by greater than 50% with inspiration. Measurements Value 04/16/2019 Reference Ascending aorta ID, A-P, 3.7 cm 3.0 S Ascending aorta ID/bsa, 1.5 cm/m^2 1.2 A-P, S Left ventricle Value 04/16/2019 Reference GLS, 2D 15.87 % LV ID, ED 4.6 cm 4.6 4.2 - 5.8 LV ID, ES 2.9 cm 2.4 2.5 - 4.0 LV ID/bsa, ED (L) 1.9 cm/m^2 1.9 2.2 - 3.0 LV ID/bsa, ES (L) 1.2 cm/m^2 1.0 1.3 - 2.1 LV PW thickness, ED (H) 1.1 cm 1.4 0.6 - 1.0 LV PW/LV ID ratio, ED 0.24 0.29 LV wall mass 190 g 274 96 - 200 LV wall mass/bsa 77 g/m^2 112 50 - 102 Stroke volume/bsa, 1-p 39.8 ml/m^2 17 A2C LV end-diastolic volume, 178 ml 110 69 - 185 1-p A4C LV end-systolic volume, 62 ml 42 22 - 78 1-p A4C LV end-diastolic volume, (H) 173 ml 94 62 - 150 2-p LV end-systolic volume, (H) 63 ml 42 21 - 61 2-p LV ejection fraction, 2-p 64 % 55 52 - 72 LV E/e', lateral 13.6 8.2 LV E/e', medial 14.1 8.9 LV E/e', average 13.8 8.5 Ventricular septum Value 04/16/2019 Reference IVS thickness, ED (H) 1.2 cm 1.6 0.6 - 1.0 LVOT Value 04/16/2019 Reference LVOT ID, A-P 1.9 cm 2.1 LVOT mean velocity, S 0.7 m/sec 0.9 LVOT peak gradient, S 5 mm Hg 6 Stroke volume (SV), LVOT 67 ml 86 DP Stroke index (SV/bsa), 27 ml/m^2 35 LVOT DP Aortic valve Value 04/16/2019 Reference Aortic mean gradient, S 12 mm Hg 11 Aortic peak gradient, S 22 mm Hg 18 DI 0.5 0.62 Aortic valve area, VTI 1.5 cm^2 2.1 Aortic valve area/bsa, 0.6 cm^2/m^2 0.8 VTI Left atrium Value 04/16/2019 Reference LA volume/bsa, ES, 2-p 27 ml/m^2 18 16 - 34 Mitral valve Value 04/16/2019 Reference Mitral E-wave peak 1 m/sec 0.7 velocity Mitral A-wave peak 1 m/sec 0.7 velocity Mitral deceleration time 178 ms 292 Mitral peak gradient, D 4 mm Hg 2 Mitral E/A ratio, peak 1.0 1.1 Right atrium Value 04/16/2019 Reference RA area, ES, A4C 16 cm^2 11 10 - 18 Systemic veins Value 04/16/2019 Reference Estimated RAP 3 mm Hg 3 Right ventricle Value 04/16/2019 Reference RV ID, minor axis, ED, 4.0 cm 3.6 2.5 - 4.1 A4C base RV ID, minor axis, ED, 2.6 cm 3.2 1.9 - 3.5 A4C mid TAPSE, 2D 2.5 cm 1.3 1.7 - 3.1 RV s', lateral 10.1 cm/sec 11.6 6.0 - 13.4 Legend: (L) and (H) steve values outside specified reference range. Electronically signed by Steve Washington MD, [facility] 03/03/2020 14:59 Prior Signatures: Final Dictated: 03/03/2020 2:59 pm Dictating Physician: MD. WASHINGTON FACC, MARK A Signed Date and Time: 03/03/2020 2:59 pm Signed by: MD. AMMON, STEVE GOODEN Normal [facility] Basic Metabolic Panelon Anion gap [Moles/Vol] 7 Normal [facility] Comment on above: Performed By: #### H MCKINLEY JAIN3 #### [facility] [address], [place] Calcium [Mass/Vol] 9.6 mg/dL Normal 8.4-10.4 [facility] Comment on above: Performed By: #### H MCKINLEY JAIN3 #### [facility] [address], [place] CO2 [Moles/Vol] 29 mmol/L Normal 22-30 [facility] Comment on above: Performed By: #### H MCKINLEY JAIN3 #### [facility] [address], [place] Glucose [Mass/Vol] 93 mg/dL Normal 70-100 [facility] Comment on above: Performed By: #### H SUSY BMP3 #### [facility] [address], [place] Urea nitrogen [Mass/Vol] 18 mg/dL Normal 7-20 [facility] Comment on above: Performed By: #### H SUSY BMP3 #### [place] [address] [address], [place] Creatinine [Mass/Vol] 1.23 mg/dL Normal 0.52-1.25 [facility] Comment on above: Performed By: #### H SUSY BMP3 #### [place] [address] [address], [place] GFR/1.73 sq M predicted among blacks MDRD (S/P/Bld) [Vol rate/Area] mL/min/{1.73_m2} Normal >60 [facility] Comment on above: Performed By: #### H SUSY BMP3 #### [place] [address] [address], [place] GFR/1.73 sq M predicted among non-blacks MDRD (S/P/Bld) [Vol rate/Area] 59.0 mL/min/{1.73_m2} Normal >60 [facility] Comment on above: Result Comment: Sour ce- MDRD equation with creatinine calibration to IDMS(NKDEP) eGFR not recommended for drug dose adjustment Performed By: #### H SUSY BMP3 #### [place] [address] [address], [place] Potassium [Moles/Vol] 4.5 mmol/L Normal 3.5-5.1 [facility] Comment on above: Performed By: #### H SUSY BMP3 #### [place] [address] [address], [place] Sodium [Moles/Vol] 138 mmol/L Normal 135-145 [facility] Comment on above: Performed By: #### H SUSY BMP3 #### [place] [address] [address], [place] Chloride [Moles/Vol] 102 mmol/L Normal 98-107 [facility] Comment on above: Performed By: #### H MCKINLEY JAIN3 #### [address] [address] Basic Metabolic PanelOrdered By: 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 on 04-16-2019 Anion gap [Moles/Vol] 7 mmol/L [facility] Work Phone: [phone] Calcium [Mass/Vol] 9.6 mg/dL 8.4 - 10. 4 mg/dL [facility] Work Phone: [phone] Chloride [Moles/Vol] 102 mmol/L 98 - 10 7 mmol/L [facility] Work Phone: [phone] CO2 [Moles/Vol] 29 mmol/L 22 - 30 mmol/L [facility] Work Phone: [phone] Creatinine [Mass/Vol] 1.23 mg/dL 0.52 - 1.25 mg/dL [facility] Work Phone: [phone] EGFR IF NonAfrican [place] 59.0 mL/min >60 [facility] Work Phone: [phone] Comment on above: Source- MDRD equatio n with creatinine calibration to IDMS(NKDEP) eGFR not recommended for drug dose adjustment GFR/1.73 sq M.predicted among blacks MDRD (S/P/Bld) [Vol rate/Area] mL/min/{1.73_m2} >60 mL/min [facility] Work Phone: [phone] Glucose [Mass/Vol] 93 mg/dL 70 - 100 mg/dL [facility] Work Phone: [phone] Potassium [Moles/Vol] 4.5 mmol/L 3.5 - 5.1 mmol/L [facility] Work Phone: [phone] Sodium [Moles/Vol] 138 mmol/L 135 - 145 mmol/L [facility] Work Phone: [phone] Urea nitrogen [Mass/Vol] 18 mg/dL 7 - 20 mg/dL [facility] Work Phone: [phone] Test Performed by [facility], [facility] [place] [address] [facility] Work Phone: CBCOrdered By: Vern rao on 04-16-2019 [facility]CH[facility] 33.4 % 32 - 36 % [facility] Work Phone: Test Performed by [facility], [address] [place] [id number] [facility] Work Phone: ECHO Complete 2D W Doppler W ColorOrdered By: 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 on 04-16-2019 TRANSTHORACIC ECHOCARDIOGRAM PATIENT: Jacob Landa STUDY DATE: 04/16/2019 : 1955 AGE: 64 HT/WT: 175.3 cm (69 118.8 kg in) (261.4 lb) GENDER: M BP: 130 / 76 LOCATION: [facility] PATIENT Outpatient [facility] Ashleigh Aiden STATUS: [facility] *ORDERING PHYSICIAN: * 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 *READING PHYSICIAN: * Cong Horton, *AGRICULTURAL CHEMICALS INSPECTOR: * PARTH Shetty DO, [facility] INDICATIONS: Severe aortic stenosis; Coronary ratery disease involving [place] coronary artery of [place] heart withouta ngina pectoris; Essential hypertension; Obesity. CONCLUSIONS SUMMARY: 1. Left ventricle: Systolic function is normal by the biplane method of disks. The estimated ejection fraction is 55%. There are no regional wall motion abnormalities. Left ventricular diastolic function parameters are normal. 2. Right ventricle: The cavity size is normal. Wall thickness is normal. Systolic function is normal. 3. Left atrium: The atrium is normal in size. 4. Right atrium: The atrium is normal in size. 5. Aortic valve: Prior repair procedures include transcatheter aortic valve replacement. There is a 26 mm bioprosthetic valve (Marc Vilma). There is trivial, less than 1+ regurgitation. There is trivial perivalvular regurgitation. The mean systolic gradient is 11 mm Hg. The peak systolic gradient is 18 mm Hg. The valve area by the velocity-time integral method is 2.1 cm^2. 6. Aorta: The aorta is normal. 7. Pericardium, extracardiac: There is no pericardial effusion. STUDY DATA: Complete transthoracic echocardiogram. Procedure: Image quality was suboptimal. The study was technically limited due to body habitus and respiratory interference. Intravenous imaging enhancement (Definity) was administered. Definity lot #: [id number]. M-mode, complete 2D, complete spectral Doppler, and color flow Doppler images were acquired and archived for permanent storage and are available for subsequent review. Study status: Routine. Patient status: Outpatient. FINDINGS LEFT VENTRICLE: The cavity size is normal. Wall thickness is moderately increased. Systolic function is normal by the biplane method of disks. The estimated ejection fraction is 55%. There are no regional wall motion abnormalities. Left ventricular diastolic function parameters are normal. RIGHT VENTRICLE: The cavity size is normal. Wall thickness is normal. Systolic function is normal. Right ventricular systolic pressure is within the normal range. VENTRICULAR SEPTUM: There is no evidence of a ventricular septal defect. LEFT ATRIUM: The atrium is normal in size. RIGHT ATRIUM: The atrium is normal in size. ATRIAL SEPTUM: Color Doppler shows no shunt. MITRAL VALVE: Calcified annulus. Doppler: There is no regurgitation. The peak diastolic gradient is 2 mm Hg. AORTIC VALVE: Prior repair procedures include transcatheter aortic valve replacement. There is a 26 mm bioprosthetic valve (Marc Vilma). Mildly calcified annulus. Doppler: There is trivial, less than 1+ regurgitation. There is trivial perivalvular regurgitation. Dimensionless index: 0.62. The valve area by the velocity-time integral method is 2.1 cm^2. The valve area index by the velocity-time integral method is 0.8 cm^2/m^2. The mean systolic gradient is 11 mm Hg. The peak systolic gradient is 18 mm Hg. The peak systolic velocity is 2.1 m/sec. TRICUSPID VALVE: Structurally normal valve. Doppler: There is trivial, less than 1+ regurgitation. PULMONIC VALVE: Structurally normal valve. Doppler: There is trivial, less than 1+ regurgitation. AORTA: The aorta is normal. PULMONARY ARTERY: Main pulmonary artery: Normal. PERICARDIUM: A prominent pericardial fat pad is present. There is no pericardial effusion. SYSTEMIC VEINS: Inferior vena cava: The vessel is normal. The IVC collapses by greater than 50% with inspiration. Measurements Value 03/04/2019 Reference Aortic root ID 2.7 cm <4.5 Aortic root ID, STJ, ED (L) 1.9 cm 2.3 - 3.5 Aortic root ID/bsa, STJ, (L) 0.8 cm/m^2 1.1 - 1.9 ED Value 03/04/2019 Reference Ascending aorta ID 3.0 cm 2.2 - 3.8 Ascending aorta ID/bsa, (more content not included)... [employer] Work Phone: [place], [place] Incoming Cardiology Results From [facility]ete - 04/16/2019 5:09 PM EST TRANSTHORACIC ECHOCARDIOGRAM PATIENT: Jacob Landa STUDY DATE: 04/16/2019 : 1955 AGE: 64 HT/WT: 175.3 cm (69 118.8 kg in) (261.4 lb) GENDER: M BP: 130 / 76 LOCATION: [facility] PATIENT Outpatient Dulce Wolfe STATUS: [place] *ORDERING PHYSICIAN: * 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 *READING PHYSICIAN: * Cong Horton, *AGRICULTURAL CHEMICALS INSPECTOR: * PARTH Shetty DO, [facility] INDICATIONS: Severe aortic stenosis; Coronary ratery disease involving [place] coronary artery of [place] heart withouta ngina pectoris; Essential hypertension; Obesity. CONCLUSIONS SUMMARY: 1. Left ventricle: Systolic function is normal by the biplane method of disks. The estimated ejection fraction is 55%. There are no regional wall motion abnormalities. Left ventricular diastolic function parameters are normal. 2. Right ventricle: The cavity size is normal. Wall thickness is normal. Systolic function is normal. 3. Left atrium: The atrium is normal in size. 4. Right atrium: The atrium is normal in size. 5. Aortic valve: Prior repair procedures include transcatheter aortic valve replacement. There is a 26 mm bioprosthetic valve (Marc Vilma). There is trivial, less than 1+ regurgitation. There is trivial perivalvular regurgitation. The mean systolic gradient is 11 mm Hg. The peak systolic gradient is 18 mm Hg. The valve area by the velocity-time integral method is 2.1 cm^2. 6. Aorta: The aorta is normal. 7. Pericardium, extracardiac: There is no pericardial effusion. STUDY DATA: Complete transthoracic echocardiogram. Procedure: Image quality was suboptimal. The study was technically limited due to body habitus and respiratory interference. Intravenous imaging enhancement (Definity) was administered. Definity lot #: [id number]. M-mode, complete 2D, complete spectral Doppler, and color flow Doppler images were acquired and archived for permanent storage and are available for subsequent review. Study status: Routine. Patient status: Outpatient. FINDINGS LEFT VENTRICLE: The cavity size is normal. Wall thickness is moderately increased. Systolic function is normal by the biplane method of disks. The estimated ejection fraction is 55%. There are no regional wall motion abnormalities. Left ventricular diastolic function parameters are normal. RIGHT VENTRICLE: The cavity size is normal. Wall thickness is normal. Systolic function is normal. Right ventricular systolic pressure is within the normal range. VENTRICULAR SEPTUM: There is no evidence of a ventricular septal defect. LEFT ATRIUM: The atrium is normal in size. RIGHT ATRIUM: The atrium is normal in size. ATRIAL SEPTUM: Color Doppler shows no shunt. MITRAL VALVE: Calcified annulus. Doppler: There is no regurgitation. The peak diastolic gradient is 2 mm Hg. AORTIC VALVE: Prior repair procedures include transcatheter aortic valve replacement. There is a 26 mm bioprosthetic valve (Marc Vilma). Mildly calcified annulus. Doppler: There is trivial, less than 1+ regurgitation. There is trivial perivalvular regurgitation. Dimensionless index: 0.62. The valve area by the velocity-time integral method is 2.1 cm^2. The valve area index by the velocity-time integral method is 0.8 cm^2/m^2. The mean systolic gradient is 11 mm Hg. The peak systolic gradient is 18 mm Hg. The peak systolic velocity is 2.1 m/sec. TRICUSPID VALVE: Structurally normal valve. Doppler: There is trivial, less than 1+ regurgitation. PULMONIC VALVE: Structurally normal valve. Doppler: There is trivial, less than 1+ regurgitation. AORTA: The aorta is normal. PULMONARY ARTERY: Main pulmonary artery: Normal. PERICARDIUM: A prominent pericardial fat pad is present. There is no pericardial effusion. SYSTEMIC VEINS: Inferior vena cava: The vessel is normal. The IVC collapses by greater than 50% with inspiration. Measurements Value 03/04/2019 Reference Aortic root ID 2.7 cm <4.5 Aortic root ID, STJ, ED (L) 1.9 cm 2.3 - 3.5 Aortic root ID/bsa, STJ, (L) 0.8 cm/m^2 1.1 - 1.9 ED Value 03/04/2019 Reference Ascending aorta ID 3.0 cm 2.2 - 3.8 Ascending aorta ID/bsa, 1.2 cm/m^2 1.1 - 1.9 A-P Ascending aorta ID, A-P, 3.0 cm 3.2 S Ascending aorta ID/bsa, 1.2 cm/m^2 1.3 A-P, S Left ventricle Value 03/04/2019 Reference LV ID, ED 4.6 cm 4.8 4.2 - 5.8 LV ID, ES (L) (more content not included)... [employer] Work Phone: Echo Complete w/wo Contrasto n 04-16-2019 Echo Complete w/wo Contrast Patient Name: JACOB LANDA Ultrasound Exam Date/Time 04/16/2019 16:15:14 EST Exam Echo Complete w/wo Contrast Ordering Physician CORRINE HARDING MICHELLE Accession Number [id number] Reason For Exam TAVR Report TRANSTHORACIC ECHOCARDIOGRAM PATIENT: Jacob Landa STUDY DATE: 04/16/2019 : 1955 AGE: 64 HT/WT: 175.3 cm (69 118.8 kg in) (261.4 lb) GENDER: M BP: 130 / 76 LOCATION: [facility] PATIENT Outpatient [facility] STATUS: [place] *ORDERING PHYSICIAN: * 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 *READING PHYSICIAN: * Cong Horton, *AGRICULTURAL CHEMICALS INSPECTOR: * MILTON Shetty DO, FACC [facility] INDICATIONS: Severe aortic stenosis; Coronary ratery disease involving [place] coronary artery of [place] heart withouta ngina pectoris; Essential hypertension; Obesity. CONCLUSIONS SUMMARY: 1. Left ventricle: Systolic function is normal by the biplane method of disks. The estimated ejection fraction is 55%. There are no regional wall motion abnormalities. Left ventricular diastolic function parameters are normal. 2. Right ventricle: The cavity size is normal. Wall thickness is normal. Systolic function is normal. 3. Left atrium: The atrium is normal in size. 4. Right atrium: The atrium is normal in size. 5. Aortic valve: Prior repair procedures include transcatheter aortic valve replacement. There is a 26 mm bioprosthetic valve (Marc Vilma). There is trivial, less than 1+ regurgitation. There is trivial perivalvular regurgitation. The mean systolic gradient is 11 mm Hg. The peak systolic gradient is 18 mm Hg. The valve area by the velocity-time integral method is 2.1 cm^2. 6. Aorta: The aorta is normal. 7. Pericardium, extracardiac: There is no pericardial effusion. STUDY DATA: Complete transthoracic echocardiogram. Procedure: Image quality was suboptimal. The study was technically limited due to body habitus and respiratory interference. Intravenous imaging enhancement (Definity) was administered. Definity lot #: [id number]. M-mode, complete 2D, complete spectral Doppler, and color flow Doppler images were acquired and archived for permanent storage and are available for subsequent review. Study status: Routine. Patient status: Outpatient. FINDINGS LEFT VENTRICLE: The cavity size is normal. Wall thickness is moderately increased. Systolic function is normal by the biplane method of disks. The estimated ejection fraction is 55%. There are no regional wall motion abnormalities. Left ventricular diastolic function parameters are normal. RIGHT VENTRICLE: The cavity size is normal. Wall thickness is normal. Systolic function is normal. Right ventricular systolic pressure is within the normal range. VENTRICULAR SEPTUM: There is no evidence of a ventricular septal defect. LEFT ATRIUM: The atrium is normal in size. RIGHT ATRIUM: The atrium is normal in size. ATRIAL SEPTUM: Color Doppler shows no shunt. MITRAL VALVE: Calcified annulus. Doppler: There is no regurgitation. The peak diastolic gradient is 2 mm Hg. AORTIC VALVE: Prior repair procedures include transcatheter aortic valve replacement. There is a 26 mm bioprosthetic valve (Marc Vilma). Mildly calcified annulus. Doppler: There is trivial, less than 1+ regurgitation. There is trivial perivalvular regurgitation. Dimensionless index: 0.62. The valve area by the velocity-time integral method is 2.1 cm^2. The valve area index by the velocity-time integral method is 0.8 cm^2/m^2. The mean systolic gradient is 11 mm Hg. The peak systolic gradient is 18 mm Hg. The peak systolic velocity is 2.1 m/sec. TRICUSPID VALVE: Structurally normal valve. Doppler: There is trivial, less than 1+ regurgitation. PULMONIC VALVE: Structurally normal valve. Doppler: There is trivial, less than 1+ regurgitation. AORTA: The aorta is normal. PULMONARY ARTERY: Main pulmonary artery: Normal. PERICARDIUM: A prominent pericardial fat pad is present. There is no pericardial effusion. SYSTEMIC VEINS: Inferior vena cava: The vessel is normal. The IVC collapses by greater than 50% with inspiration. Measurements Value 03/04/2019 Reference Aortic root ID 2.7 cm <4.5 Aortic root ID, STJ, ED (L) 1.9 cm 2.3 - 3.5 Aortic root ID/bsa, STJ, (L) 0.8 cm/m^2 1.1 - 1.9 ED Value 03/04/2019 Reference Ascending aorta ID 3.0 cm 2.2 - 3.8 Ascending aorta ID/bsa, 1.2 cm/m^2 1.1 - 1.9 A-P Ascending aorta ID, A-P, 3.0 cm 3.2 S Ascending aorta ID/bsa, 1.2 cm/m^2 1.3 A-P, S Left ventricle Value 03/04/2019 Reference LV ID, ED 4.6 cm 4.8 4.2 - 5.8 LV ID, ES (L) 2.4 cm 3.4 2.5 - 4.0 LV ID/bsa, ED (L) 1.9 cm/m^2 2.0 2.2 - 3.0 LV ID/bsa, ES (L) 1.0 cm/m^2 1.4 1.3 - 2.1 LV PW thickness, ED (H) 1.4 cm 1.2 0.6 - 1.0 LV PW/LV ID ratio, ED 0.29 0.26 LV wall mass (H) 274 g 263 96 - 200 LV wall mass/bsa (H) 112 g/m^2 109 50 - 102 Stroke volume/bsa, 1-p 17 ml/m^2 23.2 A2C LV end-diastolic volume, 110 ml 105 69 - 185 1-p A4C LV end-systolic volume, 42 ml 12 22 - 78 1-p A4C LV end-diastolic volume, 94 ml 93 62 - 150 2-p LV end-systolic volume, 42 ml 18 21 - 61 2-p LV ejection fraction, 2-p 55 % 65 52 - 72 LV E/e', lateral 8.2 13.5 LV E/e', medial 8.9 LV E/e', average 8.5 Ventricular septum Value 03/04/2019 Reference IVS thickness, ED (H) 1.6 cm 1.5 0.6 - 1.0 LVOT Value 03/04/2019 Reference LVOT ID, A-P 2.1 cm 2.0 LVOT mean velocity, S 0.9 m/sec 0.7 LVOT peak gradient, S 6 mm Hg 4 Stroke volume (SV), LVOT 86 ml 66 DP Stroke index (SV/bsa), 35 ml/m^2 28 LVOT DP Aortic valve Value 03/04/2019 Reference Aortic valve peak 2.1 m/sec 2.3 velocity, S Aortic valve mean 1.6 m/sec 1.7 velocity, S Aortic mean gradient, S 11 mm Hg 13 Aortic peak gradient, S 18 mm Hg 20 DI 0.62 0.5 Aortic valve area, VTI 2.1 cm^2 1.5 Aortic valve area/bsa, 0.8 cm^2/m^2 0.6 VTI Left atrium Value 03/04/2019 Reference LA volume/bsa, ES, 2-p 18 ml/m^2 30 16 - 34 Mitral valve Value 03/04/2019 Reference Mitral E-wave peak 0.7 m/sec 0.8 velocity Mitral A-wave peak 0.7 m/sec 0.9 velocity Mitral deceleration time 292 ms 176 Mitral peak gradient, D 2 mm Hg 3 Mitral E/A ratio, peak 1.1 0.9 Pulmonary arteries Value 03/04/2019 Reference PA pressure, S, DP 22 mm Hg Tricuspid valve Value 03/04/2019 Reference Tricuspid regurg peak 2.2 m/sec <=2.8 velocity Tricuspid peak RV-RA 19 mm Hg gradient Right atrium Value 03/04/2019 Reference RA area, ES, A4C 11 cm^2 20 10 - 18 Systemic veins Value 03/04/2019 Reference Estimated RAP 3 mm Hg 3 Right ventricle Value 03/04/2019 Reference RV ID, minor axis, ED, 3.6 cm 3.0 2.5 - 4.1 A4C base RV ID, minor axis, ED, 3.2 cm 2.3 1.9 - 3.5 A4C mid TAPSE, 2D (L) 1.3 cm 1.6 1.7 - 3.1 RV pressure, S, DP 22 mm Hg RV s', lateral 11.6 cm/sec 6.0 - 13.4 Legend: (L) and (H) steve values outside specified reference range. Electronically signed by Cong Horton DO, FS, [facility] 04/16/2019 17:09 Prior Signatures: Final Dictated: 04/16/2019 5:09 pm Dictating Physician: DO HORTON JOSEPH Signed Date and Time: 04/16/2019 5:09 pm Signed by: DO HORTON JOSEPH Normal [facility] Hemogramon 04-16-2019 MCHC (RBC) [Mass/Vol] 33.4 % Normal 32.0-36.0 [facility] Comment on above: Performed By: #### H SUSY BMP3 #### [place] [address] [address] [place], [place] HemogramOrdered By: 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 on 04-16-2019 Erythrocyte distribution width (RBC) [Ratio] 13.4 % Normal 11.5-14.5 [facility] Work Phone: Comment on above: Performed By: #### H EMOG, BMP3 #### [place] [address] [address] [place], [place] Hematocrit (Bld) [Volume fraction] 43.2 % Normal 40.0-52.0 [facility] Work Phone: Comment on above: Performed By: #### H EMOG, BMP3 #### [address] Hemoglobin (Bld) [Mass/Vol] 14.4 g/dL Normal 13.0-18.0 [facility] Work Phone: Comment on above: Performed By: #### H EMOG, BMP3 #### [place] [address] [place], [place] MCH (RBC) [Entitic mass] 28.9 pg Normal 26.0-34.0 [facility] Work Phone: Comment on above: Performed By: #### H EMOFernando, BMP3 #### [employer] [address] [place], [place] MCV (RBC) [Entitic vol] 86.7 fL Normal 80.0-98.0 [facility] Work Phone: Comment on above: Performed By: #### H EMOG, BMP3 #### [employer] [facility] [address] [place], [place] Platelet mean volume (Bld) [Entitic vol] 8.3 fL Normal 7.4-10.4 [facility] Work Phone: Comment on above: Performed By: #### H EMOG, BMP3 #### [employer] [facility] [address] [place], [place] Platelets (Bld) [#/Vol] 155 10*3/uL Normal 140-440 [facility] Work Phone: Comment on above: Performed By: #### H EMOG, BMP3 #### [employer] [facility] [address] [place], [place] RBC (Bld) [#/Vol] 4.99 10*6/uL Normal 4.40-5.90 [facility] Work Phone: Comment on above: Performed By: #### H EMOG, BMP3 #### [employer] [facility] [address] [place], [place] WBC (Bld) [#/Vol] 6.0 10*3/uL Normal 3.6-10.7 [facility] Work Phone: Comment on above: Performed By: #### H EMOG, BMP3 #### [employer] [facility] [address] [place], [place] Op Noteon 03-13-2019 Op Note PATIENT: ЕЛЕНА LANDA ADMISSION DATE: 03/03/2019 SURGERY DATE: 03/03/2019 DATE OF : 1955 AGE: 63 ADMITTING PHYSICIAN: ATTENDING PHYSICIAN: Jp Zhao MD DICTATING PHYSICIAN: Jp Zhao MD OPERATIVE RECORD Procedure: A #26 VILMA S3 VALVE IMPLANTATION WITH TRANSFEMORAL, TRANSCATHETER AORTIC VALVE REPLACEMENT. Preoperative Diagnosis: Severe, symptomatic aortic valvular stenosis. Postoperative Diagnosis: Severe, symptomatic aortic valvular stenosis. Anesthesia: Conscious sedation. Ore Puncher: Tyshawn Magallanes Complications: None. Indications for Procedure: The patient is a 63-year-old male with a history of severe . The case was reviewed in the valve conference in valve clinic and the patient was deemed a candidate for TAVR. DESCRIPTION OF PROCEDURE: The patient was positioned on the operative table in supine position and conscious sedation anesthesia was initiated. The patient was prepped and draped in usual sterile fashion. The open-heart surgery team was available in the room. Vascular access was gained in the right femoral artery, right radial artery and right femoral vein. A 6-Ku[place]i sheath was placed in the right femoral vein through which a temporary pacing wire was advanced in the right ventricular apex where appropriate capture was documented. Sterile tubing was attached to the side port of the sheath. A 6-[place] sheath was placed in the right radial artery through which a pigtail catheter was advanced in the aortic annulus for confirmation of implant angle. A 6-[place]i sheath was placed in the right femoral artery. The patient was systemically heparinized with 100 units/kg intravenous heparin. Two Perclose devices were also placed at the right femoral artery site. The Seldinger technique was used to place the various wires and sheaths. Please refer to Dr. Magallanes's note for this detail. A 26 mm Vilma S3 valve was then advanced through the sheath into the descending thoracic aorta. The valve was mounted on the balloon and the delivery catheter was flexed and advanced around the aortic arch and across the aortic annulus. The valve was deployed under rapid pacing, and the valve was noted to seat well and function normally both on fluoroscopy and transthoracic echocardiography. Protamine was then given to reverse the systemic effects of heparin. The patient was decannulated and transferred stable to the recovery room. [employer] Job ID: [id number] Jp Zhao MD DOD:03/13/2019 12:41 P MADAN/chon DOT:03/13/2019 01:56 P Job Number: [id number] Document Number: [id number] cc: Tyshawn Magallanes MD [address] [facility] [address] [facility] [address] Jp Zhao MD [facility] [address] [facility] [address] [facility] [address] Normal [facility] Basic Metabolic Panelon 02-08 Anion gap [Moles/Vol] 7 mmol/L [place], [place] Calcium [Mass/Vol] 8.8 mg/dL 8.4 - 10. 4 mg/dL [place], [place] Chloride [Moles/Vol] 103 mmol/L 98 - 10 7 mmol/L [place] CO2 [Moles/Vol] 24 mmol/L 22 - 30 mmol/L [place] Creatinine [Mass/Vol] 1.26 mg/dL High 0.52 - 1.25 mg/dL [place] EGFR IF NonAfrican [place] 57.4 mL/min >60 [place], [place] Comment on above: Source- MDRD equatio n with creatinine calibration to IDMS(NKDEP) eGFR not recommended for drug dose adjustment GFR/1.73 sq M predicted among blacks MDRD (S/P/Bld) [Vol rate/Area] mL/min/{1.73_m2} >60 mL/min [place] Glucose [Mass/Vol] 96 mg/dL 70 - 100 mg/dL [place] Interpretation and review of laboratory results Abnormal [place] Potassium [Moles/Vol] 4.2 mmol/L 3.5 - 5.1 mmol/L [place] Comment on above: Slightly hemolysed, interpret with caution. Sodium [Moles/Vol] 134 mmol/L Low 135 - 145 mmol/L [place] Urea nitrogen [Mass/Vol] 21 mg/dL High 7 - 20 mg/dL [place] Test Performed by [facility], [address] [place] [id number] [place], [place] CBCon 03-04-2019 Erythrocyte distribution width (RBC) [Ratio] 13.4 % 11.5 - 14.5 % [place] Hematocrit (Bld) [Volume fraction] 39.0 % Low 40 - 52 % [place] Hemoglobin (Bld) [Mass/Vol] 13.3 g/dL 13 - 18 g/dL [place] Interpretation and review of laboratory results Abnormal [place] MCH (RBC) [Entitic mass] 30.0 pg 26 - 34 pg [place] MCHC (RBC) [Mass/Vol] 34.0 % 32 - 36 % [place], [place] MCV (RBC) [Entitic vol] 88.2 fL 80 - 98 fL [place] Platelet mean volume (Bld) [Entitic vol] 8.4 fL 7.4 - 10.4 fL [place] Platelets (Bld) [#/Vol] 149 10*3/uL 140 - 440 10*3/uL [place] RBC (Bld) [#/Vol] 4.42 10*6/uL 4.4 - 5.9 10*6/uL [place] WBC (Bld) [#/Vol] 6.9 10*3/uL 3.6 - 10.7 10*3/uL [place] Test Performed by [facility], [address] [place] [id number] [place] [address] ECHO Complete 2D W Doppler W Coloron 03-04-2019 [facility] Incoming Cardiology Results From [facility]/Pete - 03/04/2019 12:51 PM EST TRANSTHORACIC ECHOCARDIOGRAM PATIENT: Jacob Landa STUDY DATE: 03/04/2019 : 1955 AGE: 63 HT/WT: 175.3 cm (69 115 kg in) (253 lb) GENDER: M BP: 113 / 67 LOCATION: [facility] PATIENT Inpatient [facility] STATUS: *ORDERING PHYSICIAN: * 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 *READING PHYSICIAN: * Anderson *AGRICULTURAL CHEMICALS INSPECTOR: * Justus Persaud RDCS, MD AE INDICATIONS: POD 1 TAVR. CONCLUSIONS SUMMARY: 1. Left ventricle: There is mild concentric hypertrophy. Systolic function is normal by visual assessment. The estimated ejection fraction is 65%. 2. Right ventricle: The cavity size is mildly dilated. Systolic function is mildly decreased by visual assessment. 3. Left atrium: The atrium is mildly dilated. 4. Right atrium: The atrium is mildly dilated. 5. Aortic valve: There is a normally functioning 26 mm bioprosthetic valve (Marc Vilma). There is trivial, less than 1+ regurgitation. There is trivial perivalvular regurgitation. 6. Unable to estimate RVSP. STUDY DATA: Complete transthoracic echocardiogram. Procedure: Image quality was suboptimal. The study was technically limited due to poor acoustic window availability and body habitus. Intravenous imaging enhancement (Definity) was administered to opacify the chamber. Definity lot #: [id number]. M-mode, complete 2D, complete spectral Doppler, and color flow Doppler images were acquired and archived for permanent storage and are available for subsequent review. Study status: Routine. Patient status: Inpatient. FINDINGS LEFT VENTRICLE: The cavity size is normal. Wall thickness is mildly increased. There is mild concentric hypertrophy. Systolic function is normal by visual assessment. The estimated ejection fraction is 65%. There are no regional wall motion abnormalities. RIGHT VENTRICLE: The cavity size is mildly dilated. Systolic function is mildly decreased by visual assessment. LEFT ATRIUM: The atrium is mildly dilated. RIGHT ATRIUM: The atrium is mildly dilated. ATRIAL SEPTUM: The interatrial septum is normal. Doppler shows no shunt. MITRAL VALVE: Structurally normal valve. Leaflet separation is normal. Doppler: Transvalvular velocity is within the normal range. There is no evidence for stenosis. There is no regurgitation. The peak diastolic gradient is 3 mm Hg. AORTIC VALVE: There is a normally functioning 26 mm bioprosthetic valve (Marc Vilma). Cusp separation is normal. Doppler: Transvalvular velocity is within the normal range. There is no stenosis. There is trivial, less than 1+ regurgitation. There is trivial perivalvular regurgitation. Dimensionless index: 0.5. The valve area by the velocity-time integral method is 1.5 cm^2. The valve area index by the velocity-time integral method is 0.6 cm^2/m^2. The mean systolic gradient is 13 mm Hg. The peak systolic gradient is 20 mm Hg. The peak systolic velocity is 2.3 m/sec. TRICUSPID VALVE: Structurally normal valve. Leaflet separation is normal. Doppler: Transvalvular velocity is within the normal range. There is no evidence for stenosis. There is no significant regurgitation. PULMONIC VALVE: Structurally normal valve. Cusp separation is normal. Doppler: Transvalvular velocity is within the normal range. AORTA: Aortic root: The aortic root is normal in size. Ascending aorta: The ascending aorta is normal in size. PERICARDIUM: There is no pericardial effusion. SYSTEMIC VEINS: Inferior vena cava: The IVC collapses by greater than 50% with inspiration. Measurements Value 03/03/2019 Reference Ascending aorta ID, A-P, S 3.2 cm 3.3 --------- Ascending aorta ID/bsa, 1.3 cm/m^2 1.4 --------- A-P, S Left ventricle Value 03/03/2019 Reference LV ID, ED 4.8 cm 4.2 - 5.8 LV ID, ES 3.4 cm 2.5 - 4.0 LV ID/bsa, ED (L) 2.0 cm/m^2 2.2 - 3.0 LV ID/bsa, ES 1.4 cm/m^2 1.3 - 2.1 LV PW thickness, ED (H) 1.2 cm 0.6 - 1.0 LV PW/LV ID ratio, ED 0.26 --------- LV wall mass (H) 263 g 96 - 200 LV wall mass/bsa (H) 109 g/m^2 50 - 102 Stroke volume/bsa, 1-p A2C 23.2 ml/m^2 --------- LV end-diastolic volume, 105 ml 69 - 185 1-p A4C LV end-systolic volume, (L) 12 ml 22 - 78 1-p A4C LV end-diastolic volume, 93 ml 62 - 150 2-p LV end-systolic volume, (L) 18 ml 21 - 61 2-p LV ejection fraction, 2-p 65 % 60 52 - 72 LV E/e', lateral 13.5 --------- Ventricular septum Value 03/03/2019 Reference IVS thickness, ED (H) 1.5 cm 0.6 - 1.0 LVOT Value 03/03/2019 Reference LVOT ID, A-P 2.0 cm 2.4 --------- LVOT mean velocity, S 0.7 m/sec 0.5 --------- LVOT peak gradient, S 4 mm Hg 3 --------- Stroke volume (SV), LVOT 66 ml 82 --------- DP Stroke index (SV/bsa), 28 ml/m^2 34 --------- LVOT DP Aortic valve Value 03/03/2019 Reference Aortic valve peak 2.3 m/sec 1.8 --------- velocity, S Aortic valve mean 1.7 m/sec 1.1 --------- velocity, S Aortic mean gradient, S 13 mm Hg 6 --------- Aortic peak gradient, S 20 mm Hg 13 --------- DI 0.5 0.49 --------- Aortic valve area, VTI 1.5 cm^2 2.1 --------- Aortic valve area/bsa, VTI 0.6 cm^2/m^2 0.9 --------- Left atrium Value 03/03/2019 Reference LA volume/bsa, ES, 2-p 30 ml/m^2 16 - 34 Mitral valve Value 03/03/2019 Reference Mitral E-wave peak 0.8 m/sec --------- velocity Mitral A-wave peak 0.9 m/sec --------- velocity Mitral deceleration time 176 ms --------- Mitral peak gradient, D 3 mm Hg --------- Mitral E/A ratio, peak 0.9 --------- Right atrium Value 03/03/2019 Reference RA area, ES, A4C (H) 20 cm^2 10 - 18 Systemic veins Value 03/03/2019 Reference Estimated RAP 3 mm Hg --------- Right ventricle Value 03/03/2019 Reference RV ID, minor axis, ED, A4C 3.0 cm 2.5 - 4.1 base RV ID, minor axis, ED, A4C 2.3 cm 1.9 - 3.5 mid TAPSE, 2D (L) 1.6 cm 1.7 - 3.1 Legend: (L) and (H) steve values outside specified reference range. Electronically signed by Anderson Jerome MD 03/04/2019 12:50 Prior Signatures: [facility]ITALS[facility] TRANSTHORACIC ECHOCARDIOGRAM PATIENT: Jacob Landa STUDY DATE: 03/04/2019 : 1955 AGE: 63 HT/WT: 175.3 cm (69 115 kg in) (253 lb) GENDER: M BP: 113 / 67 LOCATION: [facility] PATIENT Inpatient [facility] STATUS: *ORDERING PHYSICIAN: * 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 *READING PHYSICIAN: * Anderson *AGRICULTURAL CHEMICALS INSPECTOR: * Justus Persaud RDCS, MD AE INDICATIONS: POD 1 TAVR. CONCLUSIONS SUMMARY: 1. Left ventricle: There is mild concentric hypertrophy. Systolic function is normal by visual assessment. The estimated ejection fraction is 65%. 2. Right ventricle: The cavity size is mildly dilated. Systolic function is mildly decreased by visual assessment. 3. Left atrium: The atrium is mildly dilated. 4. Right atrium: The atrium is mildly dilated. 5. Aortic valve: There is a normally functioning 26 mm bioprosthetic valve (Marc Vilma). There is trivial, less than 1+ regurgitation. There is trivial perivalvular regurgitation. 6. Unable to estimate RVSP. STUDY DATA: Complete transthoracic echocardiogram. Procedure: Image quality was suboptimal. The study was technically limited due to poor acoustic window availability and body habitus. Intravenous imaging enhancement (Definity) was administered to opacify the chamber. Definity lot #: [id number]. M-mode, complete 2D, complete spectral Doppler, and color flow Doppler images were acquired and archived for permanent storage and are available for subsequent review. Study status: Routine. Patient status: Inpatient. FINDINGS LEFT VENTRICLE: The cavity size is normal. Wall thickness is mildly increased. There is mild concentric hypertrophy. Systolic function is normal by visual assessment. The estimated ejection fraction is 65%. There are no regional wall motion abnormalities. RIGHT VENTRICLE: The cavity size is mildly dilated. Systolic function is mildly decreased by visual assessment. LEFT ATRIUM: The atrium is mildly dilated. RIGHT ATRIUM: The atrium is mildly dilated. ATRIAL SEPTUM: The interatrial septum is normal. Doppler shows no shunt. MITRAL VALVE: Structurally normal valve. Leaflet separation is normal. Doppler: Transvalvular velocity is within the normal range. There is no evidence for stenosis. There is no regurgitation. The peak diastolic gradient is 3 mm Hg. AORTIC VALVE: There is a normally functioning 26 mm bioprosthetic valve (Marc Vilma). Cusp separation is normal. Doppler: Transvalvular velocity is within the normal range. There is no stenosis. There is trivial, less than 1+ regurgitation. There is trivial perivalvular regurgitation. Dimensionless index: 0.5. The valve area by the velocity-time integral method is 1.5 cm^2. The valve area index by the velocity-time integral method is 0.6 cm^2/m^2. The mean systolic gradient is 13 mm Hg. The peak systolic gradient is 20 mm Hg. The peak systolic velocity is 2.3 m/sec. TRICUSPID VALVE: Structurally normal valve. Leaflet separation is normal. Doppler: Transvalvular velocity is within the normal range. There is no evidence for stenosis. There is no significant regurgitation. PULMONIC VALVE: Structurally normal valve. Cusp separation is normal. Doppler: Transvalvular velocity is within the normal range. AORTA: Aortic root: The aortic root is normal in size. Ascending aorta: The ascending aorta is normal in size. PERICARDIUM: There is no pericardial effusion. SYSTEMIC VEINS: Inferior vena cava: The IVC collapses by greater than 50% with inspiration. Measurements Value 03/03/2019 Reference Ascending aorta ID, A-P, S 3.2 cm 3.3 --------- Ascending aorta ID/bsa, 1.3 cm/m^2 1.4 --------- A-P, S Left ventricle Value 03/03/2019 Reference LV ID, ED 4.8 cm 4.2 - 5.8 LV ID, ES 3.4 cm 2.5 - 4.0 LV ID/bsa, ED (L) 2.0 cm/m^2 2.2 - 3.0 LV ID/bsa, ES 1.4 cm/m^2 1.3 - 2.1 LV PW thickness, ED (H) 1.2 cm 0.6 - 1.0 LV PW/LV ID ratio, ED 0.26 --------- LV wall mass (H) 263 g 96 - 200 LV wall mass/bsa (H) 109 g/m^2 50 - 102 Stroke volume/bsa, 1-p A2C 23.2 ml/m^2 --------- LV end-diastolic volume, 105 ml 69 - 185 1-p A4C LV end-systolic volume, (L) 12 ml 22 - 78 1-p A4C LV end-diastolic volume, 93 ml 62 - 150 2-p LV end-systolic volume, (L) 18 ml 21 - 61 2-p LV ejection fraction, 2-p 65 % 60 52 - 72 LV E/e', lateral 13.5 --------- Ventricular septum Value 03/03/2019 Reference IVS thickness, ED (H) 1.5 cm 0.6 - 1.0 LVOT Value 03/03/2019 Reference LVOT ID, A-P 2.0 cm 2.4 --------- LVOT mean velocity, S 0.7 m/sec 0.5 --------- LVOT peak gradient, S 4 mm Hg 3 --------- Stroke volume (SV), LVOT 66 ml 82 --------- DP Stroke index (SV/bsa), 28 ml/m^2 34 --------- LVOT DP Aortic valve Value 03/03/2019 Reference Aortic valve peak 2.3 m/sec 1.8 --------- velocity, S Aortic valve mean 1.7 m/sec 1.1 --------- velocity, S Aortic mean gradient, S 13 mm Hg 6 --------- Aortic peak gradient, S 20 mm Hg 13 --------- DI 0.5 0.49 --------- Aortic valve area, VTI 1.5 cm^2 2.1 --------- Aortic valve area/bsa, VTI 0.6 cm^2/m^2 0.9 --------- Left atrium Value 03/03/2019 Reference LA volume/bsa, ES, 2-p 30 ml/m^2 16 - 34 Mitral valve Value 03/03/2019 Reference Mitral E-wave peak 0.8 m/sec --------- velocity Mitral A-wave peak 0.9 m/sec --------- velocity Mitral deceleration time 176 ms --------- Mitral peak gradient, D 3 mm Hg --------- Mitral E/A ratio, peak 0.9 --------- Right atrium Value 03/03/2019 Reference RA area, ES, A4C (H) 20 cm^2 10 - 18 Systemic veins Value 03/03/2019 Reference Estimated RAP 3 mm Hg --------- Right ventricle Value 03/03/2019 Reference RV ID, minor axis, ED, A4C 3.0 cm 2.5 - 4.1 base RV ID, minor axis, ED, A4C 2.3 cm 1.9 - 3.5 mid TAPSE, 2D (L) 1.6 cm 1.7 - 3.1 Legend: (L) and (H) steve values outside specified reference range. Electronically signed by Anderson Jerome MD 03/04/2019 12:50 Prior Signatures: [employer] Basic Metabolic Panelon 02-08 Anion gap [Moles/Vol] 6 mmol/L [facility] [employer] Calcium [Mass/Vol] 8.9 mg/dL 8.4 - 10. 4 mg/dL [place] Chloride [Moles/Vol] 106 mmol/L 98 - 10 7 mmol/L [place] CO2 [Moles/Vol] 25 mmol/L 22 - 30 mmol/L [place] Creatinine [Mass/Vol] 1.16 mg/dL 0.52 - 1.25 mg/dL [place] EGFR IF NonAfrican [place] >60.0 >60 mL/min [place] Comment on above: Source- MDRD equatio n with creatinine calibration to IDMS(NKDEP) eGFR not recommended for drug dose adjustment GFR/1.73 sq M predicted among blacks MDRD (S/P/Bld) [Vol rate/Area] mL/min/{1.73_m2} >60 mL/min [place] Glucose [Mass/Vol] 93 mg/dL 70 - 100 mg/dL [place] Potassium [Moles/Vol] 4.4 mmol/L 3.5 - 5.1 mmol/L [place] Sodium [Moles/Vol] 137 mmol/L 135 - 145 mmol/L [place] Urea nitrogen [Mass/Vol] 17 mg/dL 7 - 20 mg/dL [place] Test Performed by [facility], [address] [place] [id number] [place] [address] CBCon 03-03-2019 Erythrocyte distribution width (RBC) [Ratio] 13.8 % 11.5 - 14.5 % [place] Hematocrit (Bld) [Volume fraction] 39.4 % Low 40 - 52 % [place] Hemoglobin (Bld) [Mass/Vol] 13.4 g/dL 13 - 18 g/dL [place] Interpretation and review of laboratory results Abnormal [place] MCH (RBC) [Entitic mass] 29.5 pg 26 - 34 pg [place] MCHC (RBC) [Mass/Vol] 34.0 % 32 - 36 % [place] MCV (RBC) [Entitic vol] 87.0 fL 80 - 98 fL [place] Platelet mean volume (Bld) [Entitic vol] 8.2 fL 7.4 - 10.4 fL [facility], [place] Platelets (Bld) [#/Vol] 186 10*3/uL 140 - 440 10*3/uL [facility], [place] RBC (Bld) [#/Vol] 4.53 10*6/uL 4.4 - 5.9 10*6/uL [facility], [place] WBC (Bld) [#/Vol] 6.5 10*3/uL 3.6 - 10.7 10*3/uL [facility], [place] Test Performed by [facility], [address] [place] [id number] [place] [address] ECHO Limitedon 03-03-2019 Count Includes [facility] Cardiology Results From [facility] - 03/03/2019 8:55 AM EST LIMITED TRANSTHORACIC ECHOCARDIOGRAM Perioperative - TAVR PATIENT: Jacob Landa STUDY DATE: 03/03/2019 : 1955 AGE: 63 HT/WT: 175.3 cm (69 116.6 kg in) (256.5 lb) GENDER: M BP: 112 / 79 LOCATION: [facility] PATIENT Inpatient [facility] STATUS: *ORDERING PHYSICIAN: * Tyshawn Magallanes MD *READING PHYSICIAN: * Steve Washington MD, [facility] *AGRICULTURAL CHEMICALS INSPECTOR: * Lin THAYER INDICATIONS: Aortic Stenosis/ TAVR. CONCLUSIONS SUMMARY: 1. Aortic valve: Status post TAVR. Well-seated 26 mm bioprosthetic valve (Vilma S3). There is trivial perivalvular regurgitation. The mean systolic gradient is 6 mm Hg. The peak systolic gradient is 13 mm Hg. The valve area by the velocity-time integral method is 2.1 cm^2. 2. No evidence of pericardial effusion or aortic complications after surgery. No change in global or regional left ventricular wall motion. STUDY DATA: Transthoracic echocardiography, limited study. Limited 2D, limited spectral Doppler, and color flow Doppler images were acquired and archived for permanent storage and are available for subsequent review. Patient status: Inpatient. Location: Hybrid operating room. FINDINGS LEFT VENTRICLE: The cavity size is normal. Wall thickness is mildly increased. Systolic function is normal by visual assessment. RIGHT VENTRICLE: The cavity size is mildly dilated. AORTIC VALVE: Status post TAVR. Well-seated 26 mm bioprosthetic valve (Vilma S3). Doppler: There is trivial perivalvular regurgitation. Dimensionless index: 0.49. The valve area by the velocity-time integral method is 2.1 cm^2. The valve area index by the velocity-time integral method is 0.9 cm^2/m^2. The mean systolic gradient is 6 mm Hg. The peak systolic gradient is 13 mm Hg. The peak systolic velocity is 1.8 m/sec. PERICARDIUM: There is no pericardial effusion. Measurements Value Reference Ascending aorta ID, A-P, S 3.3 cm --------- Ascending aorta ID/bsa, A-P, S 1.4 cm/m^2 --------- Left ventricle Value Reference LV ejection fraction, 2-p 60 % 52 - 72 LVOT Value Reference LVOT ID, A-P 2.4 cm --------- LVOT mean velocity, S 0.5 m/sec --------- LVOT peak gradient, S 3 mm Hg --------- Stroke volume (SV), LVOT DP 82 ml --------- Stroke index (SV/bsa), LVOT DP 34 ml/m^2 --------- Aortic valve Value Reference Aortic valve peak velocity, S 1.8 m/sec --------- Aortic valve mean velocity, S 1.1 m/sec --------- Aortic mean gradient, S 6 mm Hg --------- Aortic peak gradient, S 13 mm Hg --------- DI 0.49 --------- Aortic valve area, VTI 2.1 cm^2 --------- Aortic valve area/bsa, VTI 0.9 cm^2/m^2 --------- Legend: (L) and (H) steve values outside specified reference range. Electronically signed by Steve Washington MD, [facility] 03/03/2019 08:55 Prior Signatures: [facility], [place] LIMITED TRANSTHORACI C ECHOCARDIOGRAM Perioperative - TAVR PATIENT: Jacob Landa STUDY DATE: 03/03/2019 : 1955 AGE: 63 HT/WT: 175.3 cm (69 116.6 kg in) (256.5 lb) GENDER: M BP: 112 / 79 LOCATION: [facility] PATIENT Inpatient [facility] STATUS: *ORDERING PHYSICIAN: * Tyshawn Magallanes MD *READING PHYSICIAN: * Steve Washington MD, FACC *AGRICULTURAL CHEMICALS INSPECTOR: * Lin Lynch RCS INDICATIONS: Aortic Stenosis/ TAVR. CONCLUSIONS SUMMARY: 1. Aortic valve: Status post TAVR. Well-seated 26 mm bioprosthetic valve (Vilma S3). There is trivial perivalvular regurgitation. The mean systolic gradient is 6 mm Hg. The peak systolic gradient is 13 mm Hg. The valve area by the velocity-time integral method is 2.1 cm^2. 2. No evidence of pericardial effusion or aortic complications after surgery. No change in global or regional left ventricular wall motion. STUDY DATA: Transthoracic echocardiography, limited study. Limited 2D, limited spectral Doppler, and color flow Doppler images were acquired and archived for permanent storage and are available for subsequent review. Patient status: Inpatient. Location: Hybrid operating room. FINDINGS LEFT VENTRICLE: The cavity size is normal. Wall thickness is mildly increased. Systolic function is normal by visual assessment. RIGHT VENTRICLE: The cavity size is mildly dilated. AORTIC VALVE: Status post TAVR. Well-seated 26 mm bioprosthetic valve (Vilma S3). Doppler: There is trivial perivalvular regurgitation. Dimensionless index: 0.49. The valve area by the velocity-time integral method is 2.1 cm^2. The valve area index by the velocity-time integral method is 0.9 cm^2/m^2. The mean systolic gradient is 6 mm Hg. The peak systolic gradient is 13 mm Hg. The peak systolic velocity is 1.8 m/sec. PERICARDIUM: There is no pericardial effusion. Measurements Value Reference Ascending aorta ID, A-P, S 3.3 cm --------- Ascending aorta ID/bsa, A-P, S 1.4 cm/m^2 --------- Left ventricle Value Reference LV ejection fraction, 2-p 60 % 52 - 72 LVOT Value Reference LVOT ID, A-P 2.4 cm --------- LVOT mean velocity, S 0.5 m/sec --------- LVOT peak gradient, S 3 mm Hg --------- Stroke volume (SV), LVOT DP 82 ml --------- Stroke index (SV/bsa), LVOT DP 34 ml/m^2 --------- Aortic valve Value Reference Aortic valve peak velocity, S 1.8 m/sec --------- Aortic valve mean velocity, S 1.1 m/sec --------- Aortic mean gradient, S 6 mm Hg --------- Aortic peak gradient, S 13 mm Hg --------- DI 0.49 --------- Aortic valve area, VTI 2.1 cm^2 --------- Aortic valve area/bsa, VTI 0.9 cm^2/m^2 --------- Legend: (L) and (H) steve values outside specified reference range. Electronically signed by Steve Washington MD, [facility] 03/03/2019 08:55 Prior Signatures: [place] Potassium w/ Reflex to Susanna andrade 03-03-2019 Potassium [Moles/Vol] 4.7 mmol/L 3.5 - 5.1 mmol/L [place] Test Performed by [facility], [facility] [place] [address] [place], [place] Brain Natriuretic Peptideon 02-21-2019 Interpretation and review of laboratory results Abnormal [place] Natriuretic peptide B (Bld) [Mass/Vol] 180 pg/mL High 0 - 125 pg/mL [place] Test Performed by [facility], [facility] [place] [address] [place] CBC Auto Differentialon 02-07 Erythrocyte distribution width (RBC) [Ratio] 13.3 % 11.5 - 14.5 % [place] Hematocrit (Bld) [Volume fraction] 43.5 % 40 - 52 % [place] Hemoglobin (Bld) [Mass/Vol] 14.7 g/dL 13 - 18 g/dL [place] MCH (RBC) [Entitic mass] 30.1 pg 26 - 34 pg [place] MCHC (RBC) [Mass/Vol] 33.7 % 32 - 36 % [place] MCV (RBC) [Entitic vol] 89.3 fL 80 - 98 fL [place] Platelet mean volume (Bld) [Entitic vol] 8.4 fL 7.4 - 10.4 fL [place] Platelets (Bld) [#/Vol] 256 10*3/uL 140 - 440 10*3/uL [place] RBC (Bld) [#/Vol] 4.87 10*6/uL 4.4 - 5.9 10*6/uL [place] WBC (Bld) [#/Vol] 8.7 10*3/uL 3.6 - 10.7 10*3/uL [place] Test Performed by [facility], [address] [place] [address] [facility], [place] CTA Chest Abdomen Pelvis [facility] 02-21-2019 Patient Name: JACOB LANDA ---CT--- Exam Date/Time 02/21/2019 09:52:28 EST Exam CTA Chest/Abdomen/Pelvis w/ + w/o contra Ordering Physician MD MAGALLANES PETER Accession Number [id number] CPT4 Codes Q9967 (CT ISOVUE 370MG/[id number]&1) , 18217 (), 11160 () Reason For Exam TAVR Report [facility] Valve [facility] Cardiovascular CTA Indication: 63 year-old man with severe aortic stenosis, being evaluated for transcatheter aortic valve implantation. Technique: Computed tomography of the heart, thoracoabdominal aorta, and iliofemoral system was performed using a [employer] Aqu[employer] One 320 detector scanner. Images were reconstructed and analyzed on an advanced post-processing 3D workstation. Contrast: 100 mL Total DLP: 1455.80 mGy-cm Study Quality: Excellent Extracardiac Findings: Prior median sternotomy. Right lower lobe, right hilar, and splenic calcifications suggest prior granulomatous disease. For a complete description of extracardiac structures, please refer to the accompanying radiology addendum. Cardiac Chambers: The pericardium is unremarkable. The left and right ventricles are normal in size. There is significant left ventricular hypertrophy with cavity obliteration during systole. The left atrium is mildly dilated. The left atrial appendage is normal in appearance. The right atrium is normal in size. Coronary Arteries: The coronaries have normal origins. There is a pattern of right coronary dominance. There severe [place] coronary atherosclerosis. Prior RCA stenting. A MCKEON to LAD is grossly patent. Aortocoronary Y graft to the diagonal and obtuse marginal is grossly patent with stent in the diagonal subbranch. The present study was not optimized for evaluation of the coronary arteries or grafts. Mitral Valve: The mitral annulus has trivial calcification, without significant extension into the LVOT. The anterior mitral leaflet is free of the LVOT during systole. Aortic Valve: The aortic valve is tricuspid and severely calcified. 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 Aortic Root and Thoracic Aorta: Sinuses: 34 mm Sinotubular junction: 31 mm Mid ascending Aorta: 33 mm Abdominal Aorta: Infrarenal: 17 mm Bifurcation: 20 mm Right Iliac System: Calcification: mild. Tortuosity: Minimal. RCIA: 8 mm REIA: 9 mm RCFA: 8 mm Left Iliac System: Calcification: mild. Tortuosity: Minimal. LCIA: 11 mm KATIE: 9 mm LCFA: 7 mm CONCLUSIONS: 1. Calcific aortic stenosis, with descriptive anatomy and annular / aortic root measurements as detailed above. 2. Patent bilateral iliofemoral system as detailed above. 3. Prior median sternotomy and CABG. Report Dictated on --- Final --- Dictated: 02/21/2019 1:52 pm Dictating Physician: MD. AMMON, STEVE GOODEN Signed Date and Time: 02/21/2019 2:16 pm Signed by: MD. AMMON, STEVE GOODEN Transcribed Date and Time: 02/21/2019 1:52 [facility] Incoming Radiology Results From [facility] - 02/21/2019 2:18 PM EST Patient Name: JACOB LANDA ---CT--- Exam Date/Time 02/21/2019 09:52:28 EST Exam CTA Chest/Abdomen/Pelvis w/ + w/o contra Ordering Physician MD MAGALLANES PETER Accession Number [id number] CPT4 Codes Q9967 (CT ISOVUE 370MG/ML&[id number]&ML&1) , 36143 (), 81545 () Reason For Exam TAVR Report [facility] Valve [facility] Cardiovascular CTA Indication: 63 year-old man with severe aortic stenosis, being evaluated for transcatheter aortic valve implantation. Technique: Computed tomography of the heart, thoracoabdominal aorta, and iliofemoral system was performed using a [employer] Aquilion One 320 detector scanner. Images were reconstructed and analyzed on an advanced post-processing 3D workstation. Contrast: 100 mL Total DLP: 1455.80 mGy-cm Study Quality: Excellent Extracardiac Findings: Prior median sternotomy. Right lower lobe, right hilar, and splenic calcifications suggest prior granulomatous disease. For a complete description of extracardiac structures, please refer to the accompanying radiology addendum. Cardiac Chambers: The pericardium is unremarkable. The left and right ventricles are normal in size. There is significant left ventricular hypertrophy with cavity obliteration during systole. The left atrium is mildly dilated. The left atrial appendage is normal in appearance. The right atrium is normal in size. Coronary Arteries: The coronaries have normal origins. There is a pattern of right coronary dominance. There severe [place] coronary atherosclerosis. Prior RCA stenting. A MCKEON to LAD is grossly patent. Aortocoronary Y graft to the diagonal and obtuse marginal is grossly patent with stent in the diagonal subbranch. The present study was not optimized for evaluation of the coronary arteries or grafts. Mitral Valve: The mitral annulus has trivial calcification, without significant extension into the LVOT. The anterior mitral leaflet is free of the LVOT during systole. Aortic Valve: The aortic valve is tricuspid and severely calcified. 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 Aortic Root and Thoracic Aorta: Sinuses: 34 mm Sinotubular junction: 31 mm Mid ascending Aorta: 33 mm Abdominal Aorta: Infrarenal: 17 mm Bifurcation: 20 mm Right Iliac System: Calcification: mild. Tortuosity: Minimal. RCIA: 8 mm REIA: 9 mm RCFA: 8 mm Left Iliac System: Calcification: mild. Tortuosity: Minimal. LCIA: 11 mm KATIE: 9 mm LCFA: 7 mm CONCLUSIONS: 1. Calcific aortic stenosis, with descriptive anatomy and annular / aortic root measurements as detailed above. 2. Patent bilateral iliofemoral system as detailed above. 3. Prior median sternotomy and CABG. Report Dictated on --- Final --- Dictated: 02/21/2019 1:52 pm Dictating Physician: MD. AMMON, STEVE GOODEN Signed Date and Time: 02/21/2019 2:16 pm Signed by: MD. AMMON, STEVE GOODEN Transcribed Date and Time: 02/21/2019 1:52 [place], [place] Comprehensive Metabolic Pane sergei 02-21-2019 Albumin [Mass/Vol] 4.4 g/dL 3.5 - 5 g/dL [place] ALP [Catalytic activity/Vol] 66 U/L 38 - 126 U/L [place] ALT [Catalytic activity/Vol] 33 U/L 13 - 69 U/L [place] Anion gap [Moles/Vol] 12 mmol/L [place] AST [Catalytic activity/Vol] 27 U/L 15 - 46 U/L [place] Bilirubin Ql (U) 0.7 mg/dL 0.2 - 1.3 mg/dL [place] Calcium [Mass/Vol] 9.6 mg/dL 8.4 - 10. 4 mg/dL [place] Chloride [Moles/Vol] 100 mmol/L 98 - 10 7 mmol/L [place] CO2 [Moles/Vol] 27 mmol/L 22 - 30 mmol/L [place] Creatinine [Mass/Vol] 1.13 mg/dL 0.52 - 1.25 mg/dL [place] EGFR IF NonAfrican [place] >60.0 >60 mL/min [place], [place] Comment on above: Source- MDRD equatio n with creatinine calibration to IDKY(NKDEP) eGFR not recommended for drug dose adjustment GFR/1.73 sq M predicted among blacks MDRD (S/P/Bld) [Vol rate/Area] mL/min/{1.73_m2} >60 mL/min [place] Glucose [Mass/Vol] 60 mg/dL Low 70 - 100 mg/dL [place] Interpretation and review of laboratory results Abnormal [place] Potassium [Moles/Vol] 3.1 mmol/L Low 3.5 - 5.1 mmol/L [place] Protein [Mass/Vol] 7.6 g/dL 6.3 - 8.2 g/dL [place] Sodium [Moles/Vol] 138 mmol/L 135 - 145 mmol/L [place] Urea nitrogen [Mass/Vol] 16 mg/dL 7 - 20 mg/dL [place] Test Performed by [facility], [address] [place] [address] [place], [place] Manual Differentialon 2018 Absolute Baso # 0.0 10*3/uL 0 - 0.2 10*3/uL [facility], [place] Absolute Eos # 0.3 10*3/uL 0 - 0.5 10*3/uL [facility], [place] Absolute Lymph # 2.0 10*3/uL 1.1 - 4.5 10*3/uL [facility] Absolute [place] # 1.0 10*3/uL 0.2 - 1.1 10*3/uL [facility], [place] Absolute Neut # 5.4 10*3/uL 2.2 - 8.2 10*3/uL [facility] Anisocytosis Ql (Bld) Slight [facility], [place] Bands 0 % 0 - 3 % [facility] Basophils 0 % 0 - 2 % [facility] Eosinophils 4 % 1 - 6 % [facility], [place] Interpretation and review of laboratory results Abnormal [place] Lymphocytes 23 % 20 - 40 % [facility], [place] Microcytosis Slight [facility], [place] Monocytes 11 % High 2 - 10 % [facility], [place] Poikilocytes Slight [place] RBC morphology finding Nom (Bld) ABNORMAL [place] Seg Neutrophils 62 % 40 - 80 % [facility] [place], [place] TOTAL CELLS COUNTED 100 [place] Test Performed by [facility], [address] [place] [address] [facility], [place] Protime/INR & PTTon 02-22-20 19 aPTT Coag (Bld) [Time] 25.1 s 20 - 30.5 s [place] Comment on above: NOTE: The therapeuti c time for Heparin anticoagulation, based on Xa activity inhibition, is an APTT of 46-80 seconds. INR Coag (PPP) [Relative time] 1.0 {INR} [place], [place] Comment on above: Recommended Anticoag ulant Therapy: SEE BELOW ----- INR of 2.0 - 3.0 : - Prophylaxis of Venous Thrombosis (high-risk surgery) - Treatment of Venous Thrombosis - Treatment of Pulmonary Embolism (Includes tissue heart valves, Acute Myocardial Infarction to prevent systemic embolism, Valvular Heart Disease, and Atrial Fibrillation) ----- INR of 2.5 - 3.5 : - Mechanical Prosthetic Valves (high risk) - If oral anticoagulant therapy is used to prevent Myocardial Infarction PT Coag (PPP) [Time] 10.9 s 9 - 12 s [place], [place] Comment on above: . Test Performed by [facility], [address] [place] [id number] [place] [address] TYPE AND SCREENon 02-21-2019 Sodium [Moles/Vol] Positive [place] Comment on above: Test Performed by [facility], [address] [place] [address] Sodium [Moles/Vol] A [place] Sodium [Moles/Vol] Negative [place] Comment on above: Test Performed by [facility], [address] [place] [address] Test Performed by [address] [address] [place] Urinalysison 02-21-2019 Appearance (U) Clear Clear [place], [place] Bilirubin Urine Negative Negative mg/dL [place] Color (U) Colorless Lt. Yellow NA [place] Glucose, Ur Normal Normal (<70) mg/dL [place] Ketones Ql (U) Negative Negative mg/dL [place] LEUKOCYTES, UA Negative Negative Diane/uL [place] Nitrite, Urine Negative Negative NA [place] Occult Blood,Urine Negative Negative mg/dL [place] pH (U) 5.0 [pH] [place] Protein (U) [Mass/Vol] Negative Negative mg/dL [facility] [place] Specific [place], Urine >1.030 [facility] EL Urobilinogen, Urine Normal Normal ( 0-1) mg/dL [facility] Test Performed by [facility], [address] [place] [address] [place] XR CHEST STANDARD (2 VW)on 04-23-2018 Faizan, Mega Incoming Radiology Results From [facility] - 02/21/2019 12:07 PM EST Patient Name: JACOB LANDA ---Diagnostic Radiology--- Exam Date/Time 02/21/2019 12:06:38 EST Exam CR Chest PA/LAT Ordering Physician MOHINI TOSCANO MEGGAN Accession Number [id number] CPT4 Codes 10987 () Reason For Exam TAVR Report Indication: TAVR Frontal and lateral views of the chest were obtained with no prior studies available for comparison. There are sternotomy wires and mediastinal vascular clips. The heart is not enlarged. Atherosclerotic calcifications of the thoracic aorta are visualized. The mediastinum and pulmonary vascularity are within normal limits. The lungs are clear. There are degenerative changes of the thoracic spine. IMPRESSION: 1. No active intrathoracic disease. Report Dictated on --- Final --- Dictated: 02/21/2019 12:03 pm Dictating Physician: DO REED ANTHONY Signed Date and Time: 02/21/2019 12:05 pm Signed by: DO REED ANTHONY Transcribed Date and Time: 02/21/2019 12:03 [facility] Patient Name: JACOB LANDA ---Diagnostic Radiology--- Exam Date/Time 02/21/2019 12:06:38 EST Exam CR Chest PA/LAT Ordering Physician MOHINI TOSCANO MEGGAN Accession Number [id number] CPT4 Codes 78127 () Reason For Exam TAVR Report Indication: TAVR Frontal and lateral views of the chest were obtained with no prior studies available for comparison. There are sternotomy wires and mediastinal vascular clips. The heart is not enlarged. Atherosclerotic calcifications of the thoracic aorta are visualized. The mediastinum and pulmonary vascularity are within normal limits. The lungs are clear. There are degenerative changes of the thoracic spine. IMPRESSION: 1. No active intrathoracic disease. Report Dictated on --- Final --- Dictated: 02/21/2019 12:03 pm Dictating Physician: DO REED ANTHONY Signed Date and Time: 02/21/2019 12:05 pm Signed by: DO REED ANTHONY Transcribed Date and Time: 02/21/2019 12:03 [place] Basic Metabolic Panelon 02-07 Anion gap [Moles/Vol] 8 mmol/L [place] Calcium [Mass/Vol] 9.8 mg/dL 8.4 - 10. 4 mg/dL [place] Chloride [Moles/Vol] 103 mmol/L 98 - 10 7 mmol/L [place] CO2 [Moles/Vol] 28 mmol/L 22 - 30 mmol/L [place] Creatinine [Mass/Vol] 1.22 mg/dL 0.52 - 1.25 mg/dL [place] EGFR IF NonAfrican [place] 59.6 mL/min >60 [place] Comment on above: Source- MDRD equatio n with creatinine calibration to IDMS(NKDEP) eGFR not recommended for drug dose adjustment GFR/1.73 sq M predicted among blacks MDRD (S/P/Bld) [Vol rate/Area] mL/min/{1.73_m2} >60 mL/min [place] Glucose [Mass/Vol] 81 mg/dL 70 - 100 mg/dL [place] Potassium [Moles/Vol] 4.4 mmol/L 3.5 - 5.1 mmol/L [place] Sodium [Moles/Vol] 138 mmol/L 135 - 145 mmol/L [place] Urea nitrogen [Mass/Vol] 16 mg/dL 7 - 20 mg/dL [place] Test Performed by [facility], [address] [place] [address] [place] Activated Clotting Time (ACT ) POCT ([place] 01-02-2019 ACT Coag (Bld) 175 Sec Normal [facility] Comment on above: Result Comment: Kourtney tment ranges and critical values established by Patient Care Services. All follow-up actions were taken by Patient Care Services. Performed By: #### 4 8054-1 ####[facility] POINT OF CARE Basic Metabolic Panelon 12-09 Anion gap [Moles/Vol] 9.0 mmol/L Normal 6.0-18.0 [facility] Comment on above: Performed By: #### 6 9405-9, 78560-7x6, 98433-6 ####[facility] [address] [place], [place] Calcium [Mass/Vol] 9.3 mg/dL Normal 8.9-10.3 [facility] Comment on above: Performed By: #### 6 9405-9, 96383-4l4, 42214-6 ####[facility] [address] [place], [place] Chloride [Moles/Vol] 106 mmol/L Normal 98-107 [facility] Comment on above: Performed By: #### 6 9405-9, 42839-8z0, 24849-3 ####[facility] [address] [place], [place] CO2 [Moles/Vol] 26 mmol/L Normal 22-32 [facility] Comment on above: Performed By: #### 6 9405-9, 79329-1s1, 46248-4 ####[facility] [address] [place], [place] Creatinine [Mass/Vol] 1.19 mg/dL Normal 0.60-1.30 [facility] Comment on above: Performed By: #### 6 9405-9, 15335-4i0, 88704-1 ####[facility] [address] [place], [place] Glucose [Mass/Vol] 98 mg/dL Normal 70-99 [facility] [place] Comment on above: Result Comment: U pdated ADA Reference Range A normal fasting glucose concentration is less than 100 mg/dL. An impaired fasting glucose concentration is 100-125 mg/dL. A provisional diagnosis of diabetes mellitus can be made when a fasting glucose concentration is greater than 125 mg/dL. Performed By: #### 6 9405-9, 33687-1u1, 44446-4 ####[facility] [address] [place], [place] Potassium [Moles/Vol] 3.8 mmol/L Normal 3.6-5.1 [facility] Comment on above: Performed By: #### 6 9405-9, 63042-9i8, 58744-2 ####[place] [address] [place], [place] Sodium [Moles/Vol] 141 mmol/L Normal 136-145 [facility] Comment on above: Performed By: #### 6 9405-9, 57184-2m9, 96372-4 ####[place] [address] [place], [place] Urea nitrogen (BldV) [Mass/Vol] 13 mg/dL Normal 8-20 [facility] Comment on above: Performed By: #### 6 9405-9, 67937-6h8, 39408-8 ####[address] GFRaaon 01-01-2019 GFR/1.73 sq M predicted among blacks MDRD (S/P/Bld) [Vol rate/Area] mL/min/{1.73_m2} Normal [facility] Comment on above: Result Comment: The MDRD equation has not been validated for those over 70 years, women, patients with serious co-morbid conditions, or with extremes of body size, muscle mass of nutritional status. Performed By: #### 6 9405-9, 46057-9z1, 39460-6 ####[facility] [address] [place], [place] GFRbbon 01-01-2019 GFR/1.73 sq M predicted among non-blacks MDRD (S/P/Bld) [Vol rate/Area] mL/min/{1.73_m2} Normal [facility] Comment on above: Performed By: #### 6 9405-9, 57289-5f5, 63041-1 ####[facility] [address] [place], [place] Patient Summaryon 01-01-2019 Patient Summary PATIENT DISCHARGE INSTRUCTIONS If you are having an emergency and are not able to reach your physician, CALL 911 or go to the nearest emergency room and take this document with you. Shin Valdovinos [facility] 01/01/19 13:40 [address] [place]. [address] PATIENT INFORMATION ------ Name: JACOB LANDA Address: [address] [place] [id number] Age: 63 Years Phone: [phone] : 1955 12:00 MRN: [id number] Sex: Male Race: White Ethnicity: Not Hispan/Lat Admitted From: [facility] Medical Service: Internal Medicine Nurse Unit/Bed: ([place]) [facility] 8K78-62 Admit Date: 12/31/2018 10:30 PCP: Physician, PCP Unknown PHYSICIANS INVOLVED WITH CARE Attending Physicians: Yessi VENTURA - Internal Medicine Admitting Physician: Sandra Carlson MD - Internal Medicine Primary Care Physician:Physician, PCP Unknown,Family Practice,,, - Consults: Low MANNING , Sandra Goff Disease Jurgen MANNING , [place] Goff Disease FOLLOW-UP APPOINTMENTS: Provider: Specialty: Address: Date: PCP Unknown Physician Family Practice Follow-up as needed Provider: Specialty: Address: Date: DR. WILSON 4 to 6 weeks Comment: We have called Dr. 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 They will be calling you to arrange the appointment. ALLERGIES: No Known Medication Allergies MEASUREMENTS: Last Charted: Weight: 113.1 kg /249 lbs 5 oz ( 01/01/19 04:38:50 ) MEDICATIONS For: SYEDA JACOB Bea This is your list of medication(s). Keep it with you at all times. Your doctor may have changed doses, add, held or stopped some of your medications. Please share this information with your family doctor. Carry this list of medications with you in case of an emergency. Update it when medications are stopped, doses are changed, or new medications (including [id number] products) are added. Ask your doctor if you have any questions. THESE ARE THE MEDICATIONS YOU SHOULD BE TAKING AmLODIPine (amLODipine 10 mg oral tablet) 1 Tab(s) By Mouth once a day. ascorbic acid/chondroitin/glucosa/m angan (Glucosamine Chondroitin oral capsule) 3 Capsule By Mouth once a day. aspirin (aspirin 81 mg oral tablet) 1 Tab(s) By Mouth once a day. atorvastatin (atorvastatin 80 mg oral tablet) 1 Tab(s) By Mouth Bedtime. cetirizine (ZyrTEC 10 mg oral tablet) 1 Tab(s) By Mouth once a day. clopidogrel (Plavix 75 mg oral tablet) 1 Tab(s) By Mouth once a day. fluticasone nasal (Flonase 50 mcg Nasal Hutchins) 1 Hutchins(s) Nasal (Intranasal) once a day. hydroCHLOROthiazide 25 Milligram By Mouth once a day. lisinopril (lisinopril 40 mg oral tablet) 1 Tab(s) By Mouth once a day. metoprolol (Metoprolol Succinate ER 100 mg oral tablet, extended release) 1 Tab(s) By Mouth once a day. nitroglycerin (nitroglycerin 0.4 mg sublingual tablet) 1 Tab(s) Under the Tongue every 5 minutes as needed Not to exceed 3 doses/15 min--if pain persists, seek medical attention. pantoprazole (Protonix 20 mg oral enteric coated tablet) 1 Tab(s) By Mouth once a day. ranolazine (ranolazine 500 mg oral tablet, extended release) 1 Tab(s) By Mouth Twice a day. MEDICATION CHANGE DETAILS (Not your Final Home Medication List) During the course of your visit, your home medication list was updated with the most current information. The details of those changes are shown below: NEW MEDICATIONS None UPDATED MEDICATIONS None UNCHANGED MEDICATIONS Other Medications AmLODIPine (amLODipine 10 mg oral tablet) 1 Tab(s) By Mouth once a day. Comment ascorbic acid/chondroitin/glucosa/m angan (Glucosamine Chondroitin oral capsule) 3 Capsule By Mouth once a day. Comment aspirin (aspirin 81 mg oral tablet) 1 Tab(s) By Mouth once a day. Comment atorvastatin (atorvastatin 80 mg oral tablet) 1 Tab(s) By Mouth Bedtime. Comment cetirizine (ZyrTEC 10 mg oral tablet) 1 Tab(s) By Mouth once a day. Comment clopidogrel (Plavix 75 mg oral tablet) 1 Tab(s) By Mouth once a day. Comment fluticasone nasal (Flonase 50 mcg Nasal Hutchins) 1 Hutchins(s) Nasal (Intranasal) once a day. Comment hydroCHLOROthiazide 25 Milligram By Mouth once a day. Comment lisinopril (lisinopril 40 mg oral tablet) 1 Tab(s) By Mouth once a day. Comment metoprolol (Metoprolol Succinate ER 100 mg oral tablet, extended release) 1 Tab(s) By Mouth once a day. Comment nitroglycerin (nitroglycerin 0.4 mg sublingual tablet) 1 Tab(s) Under the Tongue every 5 minutes as needed Not to exceed 3 doses/15 min--if pain persists, seek medical attention. Comment pantoprazole (Protonix 20 mg oral enteric coated tablet) 1 Tab(s) By Mouth once a day. Comment ranolazine (ranolazine 500 mg oral tablet, extended release) 1 Tab(s) By Mouth Twice a day. Comment STOP TAKING THESE MEDICATIONS None DO NOT TAKE UNTIL YOU TALK TO YOUR DOCTOR None NON-MEDICATION PRESCRIPTION SCHEDULING PHONE NUMBER: EDUCATION MATERIALS GIVEN: Teaching Method Comment-Cardiac: Caring for your heart SELECTED LAB RESULTS Lab Result Order Date Hemoglobin 13.3 gm/dL 12/31/2018 Hematocrit 38.4 % 12/31/2018 WBC Count 4.8 thou/mcL 12/31/2018 Platelet Count 129 thou/mcL 12/31/2018 Prothrombin Time (PT) 14.4 Sec 12/30/2018 INR 1.09 12/30/2018 Sodium Level 141 mMol/L 01/01/2019 Potassium Level 3.8 mMol/L 01/01/2019 Creatinine 1.19 mg/dL 01/01/2019 BUN 13 mg/dL 01/01/2019 Total Bilirubin 1.2 mg/dL 12/31/2018 Glucose Level 98 mg/dL 01/01/2019 ADVANCE DIRECTIVE/HEALTH CARE DECISIONS: Advance Directive/Health Care Decisions Executed by Patient: : No Information Obtained From: Patient Advance Directive Health Care Information Offered: Patient declines DISCHARGE INSTRUCTIONS: Discharge Diet Cardiac. Discharge Activities Restricted No activity restrictions. No driving. No excessive bending of the affected wrist. No pool, tub bath, or hot tub. No heavy lifting (over 10 pounds). No lifting, pushing or pulling with the affected arm (for example, groceries, children, suitcases, wet laundry, and pushing a lawnmower). Avoid bending. Avoid crossing your legs. Avoid tiring exercise. If you received sedation, you should not drink alcohol, drive, or make important decisions for 24 hours. Discharge Activities Encouraged Activity as tolerated. Pain Management Instructions For chest pain, lie or sit down and place 1 nitroglycerin tablet under your tongue. If the pain does not go away after the first dose, or if you also have nausea, sweating, shortness of breath, dizziness or weakness, call an ambulance or 911. After calling 911, if your chest pain persists after the first dose of nitroglycerin, repeat nitroglycerin 1 tablet under your tongue every 5 minutes for a total of 3 doses. It is normal to have some mild pain at the puncture site. Take medication for pain as prescribed. Contact your doctor if this medicaiton does not help.. Discharge Medication Info Call your doctor if you have any questions regarding cost, dose, frequency or purpose of medications. Do not take metformin for 48 hours after catheterization. Do NOT stop taking Plavix unless approved by your [employer] Puncher. If you have nitroglycerin, remember to carry it with you at all times. Store nitroglycerin in its original container protected from light, heat and moisture. Nitroglycerin must be replaced prior to the expiration date or if it begins to turn to powder. Please restart your Aspirin. Notify Physician Worsening symptoms. If you are on a blood thinning medication, watch for signs of blood in your urine and bowel movements, or black tarry bowel movements. Temperature greater than 101 F. Call an ambulance or 911 if you have signs or symptoms of a heart attack. Do not try to drive yourself to the hospital.. If leg below puncture site becomes constantly or severely numb, tingly, swollen or cold.. If you have a sudden onset of large amounts of bleeding, apply pressure to site and notify your doctor.. Wound and Personal Care No tub baths. Shower only until puncture site is completely healed.. Keep puncture site clean and dry. Puncture site may be bruised and/or have a small lump. This is normal and will go away on its own.. To prevent infection, always wash your hands before caring for your wound or incision. Additional Discharge Info Signs to watch for that may indicate heart attack or complications include chest pain, pressure, heaviness, tightness, burning or squeezing. This feeling may go down your arms or up into your jaw. If you develop these symptoms, call 911. Smoking increases your chances of having a heart attack. Do not smoke.. Bring your discharge instruction and all or your medications to your follow up appointment with your doctors. If you develop bleeding or sudden swelling at the puncture site: sit down and raise your affected arm above the level of your heart. Apply direct pressure above and below the site with the opposite hand. If unable to stop bleeding, call 911. SUICIDE HOTLINE: Your mental and emotional well-being are important. If you are in a mental health crisis, or having thoughts of suicide, please call the nationwide suicide hotline, anytime day or night, at 1-178-691-CGVF. Important information about accessing your health information through the [facility] patient portal If you initiated the self-registration process for [facility] during your stay, please check your personal email for an invitation to enroll in [facility] and complete the steps outlined in the email. If you would prefer to enroll while in the hospital, ask a member of your care team. We would be happy to assist you. If you have already enrolled in [facility], go to [email or web address] to login and access your health information. Thank you for choosing [facility]. PATIENT EDUCATION Heart-Healthy Eating Plan Many factors influence your heart health, including eating and exercise habits. Heart (coronary) risk increases with abnormal blood fat (lipid) levels. Heart-healthy meal planning includes limiting unhealthy fats, increasing healthy fats, and making other small dietary changes. This includes maintaining a healthy body weight to help keep lipid levels within a normal range. WHAT IS MY PLAN? Your health care provider recommends that you: ???Get no more than % of the total calories in your daily diet from fat. ???Limit your intake of saturated fat to less than % of your total calories each day. ???Limit the amount of cholesterol in your diet to less than mg per day. WHAT TYPES OF FAT SHOULD I CHOOSE?Choose healthy fats more often. Choose monounsaturated and polyunsaturated fats, such as olive oil and canola oil, flaxseeds, walnuts, almonds, and seeds. ???Eat more omega-3 fats. Good choices include salmon, mackerel, sardines, tuna, flaxseed oil, and ground flaxseeds. Aim to eat fish at least two times each week. ???Limit saturated fats. Saturated fats are primarily found in animal products, such as meats, butter, and cream. Plant sources of saturated fats include palm oil, palm kernel oil, and coconut oil. ???Avoid foods with partially hydrogenated oils in them. These contain trans fats. Examples of foods that contain trans fats are stick margarine, some tub margarines, cookies, crackers, and other baked goods. WHAT GENERAL GUIDELINES DO I NEED TO FOLLOW?Check food labels carefully to identify foods with trans fats or high amounts of saturated fat. ???Fill one half of your plate with vegetables and green salads. Eat 4?5 servings of vegetables per day. A serving of vegetables equals 1 cup of raw leafy vegetables, ? cup of raw or cooked cut-up vegetables, or ? cup of vegetable juice. ???Fill one fourth of your plate with whole grains. Look for the word "whole" as the first word in the ingredient list. ???Fill one fourth of your plate with lean protein foods. ???Eat 4?5 servings of fruit per day. A serving of fruit equals one medium whole fruit, ? cup of dried fruit, ? cup of fresh, frozen, or canned fruit, or ? cup of 100% fruit juice. ???Eat more foods that contain soluble fiber. Examples of foods that contain this type of fiber are apples, broccoli, carrots, beans, peas, and barley. Aim to get 20?30 g of fiber per day. ???Eat more home-cooked food and less restaurant, buffet, and fast food. ???Limit or avoid alcohol. ???Limit foods that are high in starch and sugar. ???Avoid fried foods. ???Cook foods by using methods other than frying. Baking, boiling, grilling, and broiling are all great options. Other fat-reducing suggestions include: ???Removing the skin from poultry. ???Removing all visible fats from meats. ???Skimming the fat off of stews, soups, and gravies before serving them. ???Steaming vegetables in water or broth. ???Lose weight if you are overweight. Losing just 5?10% of your initial body weight can help your overall health and prevent diseases such as diabetes and heart disease. ???Increase your consumption of nuts, legumes, and seeds to 4?5 servings per week. One serving of dried beans or legumes equals ? cup after being cooked, one serving of nuts equals 1? ounces, and one serving of seeds equals ? ounce or 1 tablespoon. ???You may need to monitor your salt (sodium) intake, especially if you have high blood pressure. Talk with your health care provider or dietitian to get more information about reducing sodium. WHAT FOODS CAN I EAT? Grains Breads, including Kuwaiti, white, savana, wheat, raisin, rye, oatmeal, and Lithuanian. Tortillas that are neither fried nor made with lard or trans fat. Low-fat rolls, including hotdog and hamburger buns and Congolese muffins. Biscuits. Muffins. Waffles. Pancakes. Light popcorn. Whole-grain cereals. Flatbread. [place] toast. Pretzels. Breadsticks. Rusks. Low-fat snacks and crackers, including oyster, saltine, matzo, karan, animal, and rye. Rice and pasta, including brown rice and those that are made with whole wheat. Vegetables All vegetables. Fruits All fruits, but limit coconut. Meats and Other Protein Sources Lean, well-trimmed beef, veal, pork, and thomsa. Chicken and turkey without skin. All fish and shellfish. Wild duck, rabbit, pheasant, and venison. Egg whites or low-cholesterol egg substitutes. Dried beans, peas, lentils, and tofu.?Seeds and most nuts. Dairy Low-fat or nonfat cheeses, including ricotta, string, and mozzarella. Skim or 1% milk that is liquid, powdered, or evaporated. Buttermilk that is made with low-fat milk. Nonfat or low-fat yogurt. Beverages Mineral water. Diet carbonated beverages. Sweets and Desserts Sherbets and fruit ices. Honey, jam, marmalade, jelly, and syrups. Meringues and gelatins. Pure sugar candy, such as hard candy, jelly beans, gumdrops, mints, marshmallows, and small amounts of dark chocolate. Jake food cake. Eat all sweets and desserts in moderation. Fats and Oils Nonhydrogenated (trans-free) margarines. Vegetable oils, including soybean, sesame, sunflower, olive, peanut, safflower, corn, canola, and cottonseed. Salad dressings or mayonnaise that are made with a vegetable oil. Limit added fats and oils that you use for cooking, baking, salads, and as spreads. Other [place] powder. Coffee and tea. All seasonings and condiments. The items listed above may not be a complete list of recommended foods or beverages. Contact your dietitian for more options. WHAT FOODS ARE NOT RECOMMENDED? Grains Breads that are made with saturated or trans fats, oils, or whole milk. Croissants. Butter rolls. Cheese breads. Sweet rolls. Donuts. Buttered popcorn. Sebastian mein noodles. High-fat crackers, such as cheese or butter crackers. Meats and Other Protein Sources Fatty meats, such as hotdogs, short ribs, sausage, spareribs, yang, ribeye roast or steak, and mutton. High-fat deli meats, such as salami and bologna. Caviar. Domestic duck and goose. Organ meats, such as kidney, liver, sweetbreads, brains, gizzard, chitterlings, and heart. Dairy Cream, sour cream, cream cheese, and creamed cottage cheese. Whole milk cheeses, including blue (donny), [place] Gilbert, Brie, Alexx, Costa Rican, Havarti, Welsh, cheddar, Camembert, and [place]. ?Whole or 2% milk that is liquid, evaporated, or condensed. Whole buttermilk. Cream sauce or high-fat cheese sauce. Yogurt that is made from whole milk. Beverages Regular sodas and drinks with added sugar. Sweets and Desserts Frosting. Pudding. Cookies. Cakes other than jake food cake. Candy that has milk chocolate or white chocolate, hydrogenated fat, butter, coconut, or unknown ingredients. Buttered syrups. Full-fat ice cream or ice cream drinks. Fats and Oils Gravy that has suet, meat fat, or shortening. [place] butter, hydrogenated oils, palm oil, coconut oil, palm kernel oil. These can often be found in baked products, candy, fried foods, nondairy creamers, and whipped toppings. Solid fats and shortenings, including yang fat, salt pork, lard, and butter. Nondairy cream substitutes, such as coffee creamers and sour cream substitutes. Salad dressings that are made of unknown oils, cheese, or sour cream. The items listed above may not be a complete list of foods and beverages to avoid. Contact your dietitian for more information. This information is not intended to replace advice given to you by your health care provider. Make sure you discuss any questions you have with your health care provider. Document Released: 01/02/2009 Document Revised: 04/16/2015 Document Reviewed: 09/17/2014 [employer] Interactive Patient Education ?2016 [employer] More Alive Than You. Groin Surgical Site Care Refer to this sheet in the next few weeks. These instructions provide you with information about caring for yourself after your procedure. Your health care provider may also give you more specific instructions. Your treatment has been planned according to current medical practices, but problems sometimes occur. Call your health care provider if you have any problems or questions after your procedure. WHAT TO EXPECT AFTER THE PROCEDURE After your procedure, it is typical to have the following: ???Bruising at the groin site that usually fades within 1?2 weeks. ???Blood collecting in the tissue (hematoma) that may be painful to the touch. It should usually decrease in size and tenderness within 1?2 weeks. HOME CARE INSTRUCTIONS ???Take medicines only as directed by your health care provider. ???You may shower 24?48 hours after the procedure or as directed by your health care provider. Remove the bandage (dressing) and gently wash the site with plain soap and water. Pat the area dry with a clean towel. Do not rub the site, because this may cause bleeding. ???Do not take baths, swim, or use a hot tub until your health care provider approves. ???Check your insertion site every day for redness, swelling, or drainage. ???Do not apply powder or lotion to the site. ???Limit use of stairs to twice a day for the first 2?3 days or as directed by your health care provider. ???Do not squat for the first 2?3 days or as directed by your health care provider. ???Do not lift over 10 lb (4.5 kg) for 5 days after your procedure or as directed by your health care provider. ???Ask your health care provider when it is okay to: ???Return to work or school. ???Resume usual physical activities or sports. ???Resume sexual activity. ???Do not drive home if you are discharged the same day as the procedure. Have someone else drive you. ???You may drive 24 hours after the procedure unless otherwise instructed by your health care provider. ???Do not operate machinery or power tools for 24 hours after the procedure or as directed by your health care provider. ???If your procedure was done as an outpatient procedure, which means that you went home the same day as your procedure, a responsible adult should be with you for the first 24 hours after you arrive home. ???Keep all follow-up visits as directed by your health care provider. This is important. SEEK MEDICAL CARE IF: ???You have a fever. ???You have chills. ???You have increased bleeding from the groin site. Hold pressure on the site. SEEK IMMEDIATE MEDICAL CARE IF: ???You have unusual pain at the groin site. ???You have redness, warmth, or swelling at the groin site. ???You have drainage (other than a small amount of blood on the dressing) from the groin site. ???The groin site is bleeding, and the bleeding does not stop after 30 minutes of holding steady pressure on the site. ???Your leg or foot becomes pale, cool, tingly, or numb. This information is not intended to replace advice given to you by your health care provider. Make sure you discuss any questions you have with your health care provider. Document Released: 11/27/2014 Document Reviewed: 11/27/2014 [employer] Interactive Patient Education ?2016 What's More Alive Than You. Radial Site Care Refer to this sheet in the next few weeks. These instructions provide you with information about caring for yourself after your procedure. Your health care provider may also give you more specific instructions. Your treatment has been planned according to current medical practices, but problems sometimes occur. Call your health care provider if you have any problems or questions after your procedure. WHAT TO EXPECT AFTER THE PROCEDURE After your procedure, it is typical to have the following: ???Bruising at the radial site that usually fades within 1?2 weeks. ???Blood collecting in the tissue (hematoma) that may be painful to the touch. It should usually decrease in size and tenderness within 1?2 weeks. HOME CARE INSTRUCTIONS ???Take medicines only as directed by your health care provider. ???You may shower 24?48 hours after the procedure or as directed by your health care provider. Remove the bandage (dressing) and gently wash the site with plain soap and water. Pat the area dry with a clean towel. Do not rub the site, because this may cause bleeding. ???Do not take baths, swim, or use a hot tub until your health care provider approves. ???Check your insertion site every day for redness, swelling, or drainage. ???Do not apply powder or lotion to the site. ???Do not flex or bend the affected arm for 24 hours or as directed by your health care provider. ???Do not push or pull heavy objects with the affected arm for 24 hours or as directed by your health care provider. ???Do not lift over 10 lb (4.5 kg) for 5 days after your procedure or as directed by your health care provider. ???Ask your health care provider when it is okay to: ???Return to work or school. ???Resume usual physical activities or sports. ???Resume sexual activity. ???Do not drive home if you are discharged the same day as the procedure. Have someone else drive you. ???You may drive 24 hours after the procedure unless otherwise instructed by your health care provider. ???Do not operate machinery or power tools for 24 hours after the procedure. ???If your procedure was done as an outpatient procedure, which means that you went home the same day as your procedure, a responsible adult should be with you for the first 24 hours after you arrive home. ???Keep all follow-up visits as directed by your health care provider. This is important. SEEK MEDICAL CARE IF: ???You have a fever. ???You have chills. ???You have increased bleeding from the radial site. Hold pressure on the site. SEEK IMMEDIATE MEDICAL CARE IF: ???You have unusual pain at the radial site. ???You have redness, warmth, or swelling at the radial site. ???You have drainage (other than a small amount of blood on the dressing) from the radial site. ???The radial site is bleeding, and the bleeding does not stop after 30 minutes of holding steady pressure on the site. ???Your arm or hand becomes pale, cool, tingly, or numb. This information is not intended to replace advice given to you by your health care provider. Make sure you discuss any questions you have with your health care provider. Document Released: 04/28/2011 Document Revised: 04/16/2015 Document Reviewed: 10/12/2014 [employer] Interactive Patient Education ?2016 [employer] Coronary Angiogram With Stent Coronary angiography with stent placement is a procedure to widen or open a narrow blood vessel of the heart (coronary artery). When a coronary artery becomes partially blocked, it decreases blood flow to that area. This may lead to chest pain or a heart attack (myocardial infarction). Arteries may become blocked by cholesterol buildup (plaque) in the lining or wall. A stent is a small piece of metal that looks like a mesh or a spring. Stent placement may be done right after a coronary angiography in which a blocked artery is found or as a treatment for a heart attack. LET YOUR HEALTH CARE PROVIDER KNOW ABOUT: ???Any allergies you have. ?All medicines you are taking, including vitamins, herbs, eye drops, creams, and hvwu-beq-jobibdd medicines. ?Previous problems you or members of your family have had with the use of anesthetics. ?Any blood disorders you have. ?Previous surgeries you have had. ?Medical conditions you have. RISKS AND COMPLICATIONS Generally, coronary angiography with stent is a safe procedure. However, problems can occur and include: ???Damage to the heart or its blood vessels. ?A return of blockage. ?Bleeding, infection, or bruising at the insertion site. ?A collection of blood under the skin (hematoma) at the insertion site. ???Blood clot in another part of the body. ?Kidney injury. ?Allergic reaction to the dye or contrast used. ?Bleeding into the abdomen (retroperitoneal bleeding). BEFORE THE PROCEDURE ???Do not eat or drink anything after midnight on the night before the procedure or as directed by your health care provider.?Ask your health care provider about changing or stopping your regular medicines. This is especially important if you are taking diabetes medicines or blood thinners. ???Your health care provider will make sure you understand the procedure as well as the risks and potential problems associated with the procedure. ? PROCEDURE ???You may be given a medicine to help you relax before and during the procedure (sedative). This medicine will be given through an IV tube that is put into one of your veins. ?The area where the catheter will be inserted will be shaved and cleaned. This is usually done in the groin but may be done in the fold of your arm (near your elbow) or in the wrist. ?A medicine will be given to numb the area where the catheter will be inserted (local anesthetic). ?The catheter will be inserted into an artery using a guide wire. A type of X-ray (fluoroscopy) will be used to help guide the catheter to the opening of the blocked artery. ?A dye will then be injected into the catheter, and X-rays will be taken. The dye will help to show where any narrowing or blockages are located in the heart arteries. ?A tiny wire will be guided to the blocked spot, and a balloon will be inflated to make the artery wider. The stent will be expanded and will crush the plaque into the wall of the vessel. The stent will hold the area open like a scaffolding and improve the blood flow. ?Sometimes the artery may be made wider using a laser or other tools to remove plaque. ?When the blood flow is better, the catheter will be removed. The lining of the artery will grow over the stent, which stays where it was placed. ? AFTER THE PROCEDURE ???If the procedure is done through the leg, you will be kept in bed lying flat for about 6 hours. You will be instructed to not bend or cross your legs. ?The insertion site will be checked frequently. ?The pulse in your feet or wrist will be checked frequently. ?Additional blood tests, X-rays, and electrocardiography may be done. This information is not intended to replace advice given to you by your health care provider. Make sure you discuss any questions you have with your health care provider. Document Released: 09/30/2003 Document Revised: 04/16/2015 Document Reviewed: 10/02/2013 [employer] Interactive Patient Education ?2016 [employer] Echocardiogram An echocardiogram, or echocardiography, uses sound waves (ultrasound) to produce an image of your heart. The echocardiogram is simple, painless, obtained within a short period of time, and offers valuable information to your health care provider. The images from an echocardiogram can provide information such as: ???Evidence of coronary artery disease (CAD). ???Heart size. ???Heart muscle function. ???Heart valve function. ???Aneurysm detection. ???Evidence of a past heart attack. ???Fluid buildup around the heart. ???Heart muscle thickening. ???Assess heart valve function. LET YOUR HEALTH CARE PROVIDER KNOW ABOUT: ???Any allergies you have. ???All medicines you are taking, including vitamins, herbs, eye drops, creams, and lzab-iij-rqmqsgo medicines. ???Previous problems you or members of your family have had with the use of anesthetics. ???Any blood disorders you have. ???Previous surgeries you have had. ???Medical conditions you have. ???Possibility of , if this applies. BEFORE THE PROCEDURE No special preparation is needed. Eat and drink normally. PROCEDURE ???In order to produce an image of your heart, gel will be applied to your chest and a wand-like tool (transducer) will be moved over your chest. The gel will help transmit the sound waves from the transducer. The sound waves will harmlessly bounce off your heart to allow the heart images to be captured in real-time motion. These images will then be recorded. ???You may need an IV to receive a medicine that improves the quality of the pictures. AFTER THE PROCEDURE You may return to your normal schedule including diet, activities, and medicines, unless your health care provider tells you otherwise. This information is not intended to replace advice given to you by your health care provider. Make sure you discuss any questions you have with your health care provider. Document Released: 03/23/2001 Document Revised: 04/16/2015 Document Reviewed: 12/01/2013 Elsevier Interactive Patient Education ?2015 [employer] PATIENT DISCHARGE INSTRUCTION Signature Page for: JACOB LANDA Date/Time: 01/01/2019 13:40:34 A Clinician has explained the information on my discharge instructions and has provided me with a copy. My questions have been answered to my satisfaction. Patient Signature Date/Time Responsible Party Date/Time Relationship to Patient _ Clinician Signature ____ Date/Time __ Normal [facility] [place] Activated Clotting Time (ACT ) POCT ([place] 12-31-2018 ACT Coag (Bld) [address] [facility] [place] Comment on above: Result Comment: Kourtney tment ranges and critical values established by Patient Care Services. All follow-up actions were taken by Patient Care Services. Performed By: #### 4 8054-1 ####[facility] POINT OF CARE ACT Coag (Bld) [address] [facility] [place] Comment on above: Result Comment: Kourtney tment ranges and critical values established by Patient Care Services. All follow-up actions were taken by Patient Care Services. Performed By: #### 6 9405-9, 30973-8l7, 17623-5, 38576-2 #### [facility] [address], [place] ACT Coag (Bld) [address] [facility] [place] Comment on above: Result Comment: Kourtney tment ranges and critical values established by Patient Care Services. All follow-up actions were taken by Patient Care Services. Performed By: #### 6 9405-9, 41407-8x7, 16593-9, 38691-8 #### [facility] [address], [place] ACT Coag (Bld) [address] [facility] [place] Comment on above: Result Comment: Kourtney tment ranges and critical values established by Patient Care Services. All follow-up actions were taken by Patient Care Services. Performed By: #### 6 9405-9, 22159-8h6, 42187-8, 48335-6 #### [facility] [address], [place] BUNon 12-31-2018 Urea nitrogen (BldV) [Mass/Vol] 13 mg/dL Normal 8-20 [facility] [place] Comment on above: Performed By: #### 6 9405-9, 13164-3b5, 43565-1, 72786-3 #### [facility] [address], [place] Basic Metabolic Panelon - Anion gap [Moles/Vol] 9.0 mmol/L Normal 6.0-18.0 [facility] Comment on above: Performed By: #### 6 9405-9, 59062-2p7, 05067-8, 09024-7 #### [facility] [address], [place] Calcium [Mass/Vol] 8.4 mg/dL Low 8.9-10.3 [facility] [place] Comment on above: Performed By: #### 6 9405-9, 95626-2k9, 03695-7, 55180-3 #### [facility] [address], [place] Chloride [Moles/Vol] 108 mmol/L High 98-107 [facility] Comment on above: Performed By: #### 6 9405-9, 54314-2o7, 50575-5, 16806-3 #### [facility] [address], [place] CO2 [Moles/Vol] 26 mmol/L Normal 22-32 [facility] [place] Comment on above: Performed By: #### 6 9405-9, 63819-5t6, 25716-0, 96878-9 #### [facility] [address], [place] Creatinine [Mass/Vol] 0.54 mg/dL Low 0.60-1.30 [facility] Comment on above: Performed By: #### 6 9405-9, 09344-3v1, 89432-9, 64161-7 #### [facility] [address], [place] Glucose [Mass/Vol] 74 mg/dL Normal 70-99 [facility] [place] Comment on above: Result Comment: U pdated ADA Reference Range A normal fasting glucose concentration is less than 100 mg/dL. An impaired fasting glucose concentration is 100-125 mg/dL. A provisional diagnosis of diabetes mellitus can be made when a fasting glucose concentration is greater than 125 mg/dL. Performed By: #### 6 9405-9, 35472-3z5, 59653-0, 57266-2 #### [facility] [address], [place] Potassium [Moles/Vol] 4.0 mmol/L Normal 3.6-5.1 [facility] Comment on above: Performed By: #### 6 9405-9, 04297-3z8, 73431-4, 27337-0 #### [facility] [address], [place] Sodium [Moles/Vol] 143 mmol/L Normal 136-145 [facility] [place] Comment on above: Performed By: #### 6 9405-9, 91743-9s8, 81170-6, 79548-2 #### [facility] [address], [place] Urea nitrogen (BldV) [Mass/Vol] 8 mg/dL Normal 8-20 [facility] [place] Comment on above: Performed By: #### 6 9405-9, 62165-7m2, 00078-4, 49352-2 #### [facility] [address], [place] Calcium [Mass/Vol] 8.7 mg/dL Normal 8.5-10.6 [facility] [place] Chloride [Moles/Vol] 94 mmol/L Low 98-107 [facility] CO2 [Moles/Vol] 36 mmol/L High 21-32 [facility] [place] Creatinine [Mass/Vol] 0.76 mg/dL Normal 0.70-1.30 [facility] Glucose [Mass/Vol] 165 mg/dL High 70-99 [facility] [place] Potassium [Moles/Vol] 3.7 mmol/L Normal 3.5-5.1 [facility] Sodium [Moles/Vol] 139 mmol/L Normal 136-145 [facility] [place] Urea nitrogen (BldV) [Mass/Vol] 17 mg/dL Normal 7.0-18.0 [facility] [place] Urea nitrogen/Creatinine [Mass ratio] 22 mg/mg Normal [facility] [place] C-Reactive Proteinon 019 CRP [Mass/Vol] 257.7 mg/L High 0.0-9.0 [facility] [place] CBCon 12-31-2018 Erythrocyte distribution width (RBC) [Entitic vol] 13.4 % Normal 11.0-14.8 [facility] [place] Comment on above: Performed By: #### 6 9405-9, 88203-2i8, 02067-3, 94002-5 #### [facility] [address] [place], [place] Hematocrit (Bld) [Volume fraction] 38.4 % Low 39.0-49.0 [facility] [place] Comment on above: Performed By: #### 6 9405-9, 93653-9h2, 61443-0, 71178-9 #### [facility] [address] [place], [place] Hemoglobin (Bld) [Mass/Vol] 13.3 g/dL Low 13.5-17.5 [facility] [place] Comment on above: Performed By: #### 6 9405-9, 52658-8i7, 64944-1, 09040-3 #### [facility] [address] [place], [place] MCH (RBC) [Entitic mass] 30.4 Picograms Normal 27.0-34.0 [facility] [place] Comment on above: Performed By: #### 6 9405-9, 45909-3k7, 46682-6, 82044-7 #### [facility] [address] [place], [place] MCHC (RBC) [Mass/Vol] 34.7 g/dL Normal 32.0-36.0 [facility] Comment on above: Performed By: #### 6 9405-9, 13140-0u7, 83760-5, 46948-3 #### [facility] [address] [place], [place] MCV (RBC) [Entitic vol] 87.7 fL Normal 80.0-97.0 [facility] [place] Comment on above: Performed By: #### 6 9405-9, 35790-2z9, 31128-4, 82639-6 #### [facility] [address] [place], [place] Platelet mean volume (Bld) [Entitic vol] 8.8 fL Normal 6.2-12.1 [facility] [place] Comment on above: Performed By: #### 6 9405-9, 62033-0i1, 00907-3, 93356-5 #### [facility] [address] [place], [place] Platelets (Bld) [#/Vol] 129 thou/mcL Low 142-424 [facility] [place] Comment on above: Performed By: #### 6 9405-9, 33418-6m2, 69061-4, 06782-9 #### [facility] [address] [place], [place] RBC (Bld) [#/Vol] 4.38 million/mcL Normal 4.30-5.70 [facility] Comment on above: Performed By: #### 6 9405-9, 15019-7q8, 47558-1, 96895-5 #### [facility] [address] [place], [place] WBC (Bld) [#/Vol] 4.8 thou/mcL Normal 4.6-10.2 [facility] [place] Comment on above: Performed By: #### 6 9405-9, 95106-2w2, 66401-5, 99848-6 #### [facility] [address] [place], [place] CBC with Differentialon 12-09 Basophils (Bld) [#/Vol] 0.1 thou/mcL Normal 0.0-0.2 [facility] [place] Basophils/100 WBC (Bld) 0.6 % Normal 0-3 [facility] [place] Differential cell count method Nom (Bld) AUTOMATED DIFFERENTIAL Normal [facility] [place] Eosinophils (Bld) [#/Vol] 0.5 thou/mcL High 0.0-0.4 [facility] [place] Eosinophils/100 WBC (Bld) 4.0 % Normal 0-7 [facility] [place] Lymphocytes (Bld) [#/Vol] 1.7 thou/mcL Normal 0.7-4.5 [facility] [place] Lymphocytes/100 WBC (Bld) 14.5 % Normal 14-46 [facility] [place] Monocytes (Bld) [#/Vol] 0.8 thou/mcL Normal 0.1-1.0 [facility] [place] Monocytes/100 WBC (Bld) 6.6 % Normal 4-13 [facility] [place] Neutrophils (Bld) [#/Vol] 8.9 thou/mcL High 1.5-7.8 [facility] [place] Neutrophils/100 WBC (Bld) 74.3 % High 40-74 [facility] [place] RBC morphology finding Nom (Bld) 1+ Normal [facility] [place] Comment on above: Result Comment: POIK ILOCYTOSIS 2+ HYPOCHROMIA 2+ MICROCYTES Erythrocyte distribution width (RBC) [Entitic vol] 16.2 % High 11.7-15.0 [facility] [place] Hematocrit (Bld) [Volume fraction] 17.4 % Low 34.0-50.0 [facility] [place] Hemoglobin (Bld) [Mass/Vol] 5.8 g/dL Off scale low 11.5-17.0 [facility] [place] Comment on above: Result Comment: RESU LTS VERIFIED AND CALLED TO/READ BACK BY REMBERTO CHRIS 12.31.18 @ 0520 BF. MCH (RBC) [Entitic mass] 25.8 Picograms Low 27.0-34.0 [facility] [place] MCHC (RBC) [Mass/Vol] 33.2 g/dL Normal 32.0-36.0 [facility] MCV (RBC) [Entitic vol] 77.7 fL Low 80-98 [facility] [place] Platelet mean volume (Bld) [Entitic vol] 8.1 fL Normal 7.5-11.2 [facility] [place] Platelets (Bld) [#/Vol] 328 thou/mcL Normal 140-415 [facility] [place] RBC (Bld) [#/Vol] 2.23 x(10)6/mcL Low 3.80-5.60 [facility] WBC (Bld) [#/Vol] 12.0 thou/mcL High 4.0-10.5 [facility] Basophils (Bld) [#/Vol] 0.10 thou/mcL Normal 0.00-0.20 [facility] [place] Comment on above: Performed By: #### 6 9405-9, 24053-8w3, 96195-4, 80347-4 #### [facility] [address] [place], [place] Basophils/100 WBC (Bld) 0.8 % Normal 0.0-2.0 [facility] [place] Comment on above: Performed By: #### 6 9405-9, 01673-4q5, 64721-2, 85761-0 #### [facility] [address] [place], [place] Eosinophils (Bld) [#/Vol] 0.50 thou/mcL Normal 0.00-0.70 [facility] [place] Comment on above: Performed By: #### 6 9405-9, 77038-1q7, 27155-3, 78227-2 #### [facility] [address] [place], [place] Eosinophils/100 WBC (Bld) 5.4 % Normal 0.0-7.0 [facility] [place] Comment on above: Performed By: #### 6 9405-9, 10916-0b4, 61764-0, 62625-8 #### [facility] [address] [place], [place] Erythrocyte distribution width (RBC) [Entitic vol] 14.1 % Normal 11.0-14.8 [facility] [place] Comment on above: Performed By: #### 6 9405-9, 59502-9k5, 13650-6, 61693-0 #### [facility] [address] [place], [place] Hematocrit (Bld) [Volume fraction] 41.2 % Normal 39.0-49.0 [facility] [place] Comment on above: Performed By: #### 6 9405-9, 96924-5z1, 62991-8, 23038-3 #### [facility] [address] [place], [place] Hemoglobin (Bld) [Mass/Vol] 13.9 g/dL Normal 13.5-17.5 [facility] [place] Comment on above: Performed By: #### 6 9405-9, 75248-3o0, 23382-9, 46291-5 #### [facility] [address] [place], [place] Lymphocytes (Bld) [#/Vol] 1.50 thou/mcL Normal 1.00-4.80 [facility] [place] Comment on above: Performed By: #### 6 9405-9, 80391-4m4, 10080-8, 39571-1 #### [facility] [address] [place], [place] Lymphocytes/100 WBC (Bld) 17.8 % Low 22.0-44.0 [facility] [place] Comment on above: Performed By: #### 6 9405-9, 29260-3c6, 17758-7, 13356-0 #### [facility] [address] [place], [place] MCH (RBC) [Entitic mass] 32.1 Picograms Normal 27.0-34.0 [facility] [place] Comment on above: Performed By: #### 6 9405-9, 37416-4y6, 52607-8, 44009-7 #### [facility] [address] [place], [place] MCHC (RBC) [Mass/Vol] 33.8 g/dL Normal 32.0-36.0 [facility] Comment on above: Performed By: #### 6 9405-9, 69574-0w3, 63716-5, 42935-8 #### [facility] [address] [place], [place] MCV (RBC) [Entitic vol] 95.1 fL Normal 80.0-97.0 [facility] [place] Comment on above: Performed By: #### 6 9405-9, 88002-4c7, 40412-1, 47974-5 #### [facility] [address] [place], [place] Monocytes (Bld) [#/Vol] 0.90 thou/mcL Normal 0.00-0.90 [facility] [place] Comment on above: Performed By: #### 6 9405-9, 77436-1b7, 22489-0, 20570-5 #### [facility] [address] [place], [place] Monocytes/100 WBC (Bld) 10.9 % Normal 0.0-12.0 [facility] [place] Comment on above: Performed By: #### 6 9405-9, 44798-7f4, 07494-5, 15856-5 #### [facility] [address] [place], [place] Neutrophils (Bld) [#/Vol] 5.40 thou/mcL Normal 1.80-7.70 [facility] [place] Comment on above: Performed By: #### 6 9405-9, 15816-4e2, 25965-8, 13374-4 #### [address] Neutrophils/100 WBC (Bld) 65.1 % Normal 40.0-70.0 [facility] [place] Comment on above: Performed By: #### 6 9405-9, 02838-4p8, 37106-2, 67281-6 #### [facility] [address] [place], [place] Platelet mean volume (Bld) [Entitic vol] 9.2 fL Normal 6.2-12.1 [facility] [place] Comment on above: Performed By: #### 6 9405-9, 38894-7n1, 42655-2, 55829-9 #### [facility] [address] [place], [place] Platelets (Bld) [#/Vol] 210 thou/mcL Normal 142-424 [facility] [place] Comment on above: Performed By: #### 6 9405-9, 77180-3i6, 50256-2, 78948-1 #### [facility] [address] [place], [place] RBC (Bld) [#/Vol] 4.33 million/mcL Normal 4.30-5.70 [facility] Comment on above: Performed By: #### 6 9405-9, 80294-4w3, 94715-4, 32317-9 #### [facility] [address] [place], [place] WBC (Bld) [#/Vol] 8.3 thou/mcL Normal 4.6-10.2 [facility] [place] Comment on above: Performed By: #### 6 9405-9, 04990-9z0, 19765-6, 65913-9 #### [facility] [address] [place], [place] Comprehensive Metabolic Pane sergei 12-31-2018 Albumin [Mass/Vol] 3.6 g/dL Normal 3.5-4.8 [facility] [place] Comment on above: Performed By: #### 6 9405-9, 81208-4v8, 63693-7, 07449-1 #### [facility] [address] [place], [place] ALP [Catalytic activity/Vol] 44 Units/L Normal 32-91 [facility] [place] Comment on above: Performed By: #### 6 9405-9, 24821-7a3, 46650-0, 92084-2 #### [facility] [address] [place], [place] ALT [Catalytic activity/Vol] 20 Units/L Normal 14-63 [facility] [place] Comment on above: Performed By: #### 6 9405-9, 47600-6m3, 88726-9, 28347-8 #### [facility] [address] [place], [place] Anion gap [Moles/Vol] 7.0 mmol/L Normal 6.0-18.0 [facility] Comment on above: Performed By: #### 6 9405-9, 34099-6r0, 76830-6, 70857-7 #### [facility] [address] [place], [place] AST [Catalytic activity/Vol] 17 Units/L Normal 15-41 [facility] [place] Comment on above: Performed By: #### 6 9405-9, 20162-7u4, 46330-6, 07958-1 #### [facility] [address] [place], [place] Bilirubin [Mass/Vol] 1.2 mg/dL Normal 0.3-1.2 [facility] Comment on above: Performed By: #### 6 9405-9, 73543-4f2, 80159-6, 41556-8 #### [facility] [address] [place], [place] Calcium [Mass/Vol] 9.0 mg/dL Normal 8.9-10.3 [facility] [place] Comment on above: Performed By: #### 6 9405-9, 85644-1c3, 58778-4, 57271-8 #### [facility] [address] [place], [place] Chloride [Moles/Vol] 109 mmol/L High 98-107 [facility] Comment on above: Performed By: #### 6 9405-9, 33294-7f3, 07627-0, 47522-8 #### [facility] [address] [place], [place] CO2 [Moles/Vol] 24 mmol/L Normal 22-32 [facility] [place] Comment on above: Performed By: #### 6 9405-9, 09496-6m9, 87081-7, 39623-5 #### [facility] [address] [place], [place] Creatinine [Mass/Vol] 0.98 mg/dL Normal 0.60-1.30 [facility] Comment on above: Performed By: #### 6 9405-9, 71935-5u2, 98956-2, 42898-7 #### [facility] [address] [place], [place] Glucose [Mass/Vol] 104 mg/dL High 70-99 [facility] [place] Comment on above: Result Comment: U pdated ADA Reference Range A normal fasting glucose concentration is less than 100 mg/dL. An impaired fasting glucose concentration is 100-125 mg/dL. A provisional diagnosis of diabetes mellitus can be made when a fasting glucose concentration is greater than 125 mg/dL. Performed By: #### 6 9405-9, 91366-2i4, 01163-2, 37610-5 #### [facility] [address] [place], [place] Potassium [Moles/Vol] 3.9 mmol/L Normal 3.6-5.1 [facility] Comment on above: Performed By: #### 6 9405-9, 42932-9b4, 71513-1, 00980-1 #### [facility] [address] [place], [place] Protein [Mass/Vol] 6.0 g/dL Low 6.1-7.9 [facility] [place] Comment on above: Performed By: #### 6 9405-9, 56819-6l1, 62786-4, 91404-0 #### [facility] [address] [place], [place] Sodium [Moles/Vol] 140 mmol/L Normal 136-145 [facility] [place] Comment on above: Performed By: #### 6 9405-9, 07495-2v7, 10402-9, 25480-0 #### [facility] [address] [place], [place] Urea nitrogen (BldV) [Mass/Vol] 13 mg/dL Normal 8-20 [facility] [place] Comment on above: Performed By: #### 6 9405-9, 66110-5w5, 82506-2, 36282-4 #### [facility] [address] [place], [place] Creatinineon 12-31-2018 Creatinine [Mass/Vol] 0.94 mg/dL Normal 0.66-1.30 [facility] Comment on above: Performed By: #### 6 9405-9, 41071-0u0, 94993-1, 81363-6 #### [facility] [address] [place], [place] Electrolyte Panelon 01-01-20 19 Anion gap [Moles/Vol] 12.0 mmol/L Normal 6.0-18.0 [facility] Comment on above: Performed By: #### 6 9405-9, 33285-6g2, 24051-9, 22624-2 #### [facility] [address] [place], [place] Chloride [Moles/Vol] 96 mmol/L Low 98-107 [facility] Comment on above: Performed By: #### 6 9405-9, 16690-0y6, 39974-9, 50778-3 #### [facility] [address] [place], [place] CO2 [Moles/Vol] 23 mmol/L Normal 22-32 [facility] [place] Comment on above: Performed By: #### 6 9405-9, 83452-1e6, 78337-0, 14560-7 #### [facility] [address] [place], [place] Potassium [Moles/Vol] 4.1 mmol/L Normal 3.6-5.1 [facility] Comment on above: Performed By: #### 6 9405-9, 71157-4x0, 27351-3, 78353-9 #### [facility] [address] [place], [place] Sodium [Moles/Vol] 131 mmol/L Low 136-145 [facility] [place] Comment on above: Performed By: #### 6 9405-9, 31794-7m6, 27507-6, 92380-8 #### [facility] [address] [place], [place] GFRaaon 12-31-2018 GFR/1.73 sq M predicted among blacks MDRD (S/P/Bld) [Vol rate/Area] mL/min/{1.73_m2} Normal [facility] [place] Comment on above: Result Comment: The MDRD equation has not been validated for those over 70 years, women, patients with serious co-morbid conditions, or with extremes of body size, muscle mass of nutritional status. Performed By: #### 6 9405-9, 99441-2p5, 55198-6, 69812-6 #### [facility] [address] [place], [place] GFR/1.73 sq M predicted among blacks MDRD (S/P/Bld) [Vol rate/Area] mL/min/{1.73_m2} Normal [facility] [place] Comment on above: Result Comment: The MDRD equation has not been validated for those over 70 years, women, patients with serious co-morbid conditions, or with extremes of body size, muscle mass of nutritional status. Performed By: #### 6 9405-9, 90753-6a3, 58152-0, 31525-6 #### [facility] [address] [place], [place] GFRbbon 12-31-2018 GFR/1.73 sq M predicted among non-blacks MDRD (S/P/Bld) [Vol rate/Area] mL/min/{1.73_m2} Normal [facility] [place] Comment on above: Performed By: #### 6 9405-9, 95019-1k3, 75536-7, 22570-6 #### [facility] [address] [place], [place] GFR/1.73 sq M predicted among non-blacks MDRD (S/P/Bld) [Vol rate/Area] 56 mL/min/{1.73_m2} Normal [facility] [place] Comment on above: Performed By: #### 6 9405-9, 01555-0h4, 01513-5, 97496-4 #### [facility] [address] [place], [place] Magnesium Levelon 12-31-2018 Magnesium [Mass/Vol] 1.5 mg/dL Low 1.8-2.4 [facility] Partial Thromboplastin Time (aPTT)on 12-31-2018 aPTT Coag (PPP) [Time] 74.4 Sec High 23.3-35.3 [facility] [place] Comment on above: Order Comment: To be drawn (0600, 1400, 2200) while on heparin Result Comment: LAUREN CANCHOLA NOTE: OF OCTOBER 01, 2018,NEW NORMAL REFERENCE RANGE aPTT Coag (PPP) [Time] 51.1 Sec High 23.3-35.3 [facility] [place] Comment on above: Order Comment: To be drawn (0600, 1400, 2200) while on heparin Result Comment: LAUREN CANCHOLA NOTE: OF OCTOBER 01, 2018,NEW NORMAL REFERENCE RANGE Sedimentation Rate rbcon ESR (Bld) [Velocity] 43 mm/h High 0-20 [facility] ESR (Bld) [Velocity] 30 mm/h High 0-15 [facility] Comment on above: Performed By: #### 6 9405-9, 04830-0v7, 77472-8, 66421-4 #### [facility] [address] [place], [place] Test Result Ejection Fractio non 12-31-2018 Test Result Ejection Fraction Normal [facility] [place] Test Result Ejection Fraction 55-60 Normal [facility] [place] Troponin Ion 12-31-2018 Troponin I.cardiac [Mass/Vol] 0.11 ng/mL High <0.06 [facility] [place] Comment on above: Performed By: #### 6 9405-9, 45587-4p0, 46399-9, 25287-5 #### [facility] [address] [place], [place] Troponin I.cardiac [Mass/Vol] 0.10 ng/mL High <0.06 [facility] [place] Comment on above: Performed By: #### 6 9405-9, 89375-9g3, 97467-4, 52573-4 #### [facility] [address] [place], [place] Basic Metabolic Panelon 12-09 Anion gap [Moles/Vol] 8.0 mmol/L Normal 6.0-18.0 [facility] Comment on above: Performed By: #### 6 9405-9, 91393-6u2, 28864-6, 40894-3 #### [facility] [address] [place], [place] Calcium [Mass/Vol] 9.4 mg/dL Normal 8.9-10.3 [facility] [place] Comment on above: Performed By: #### 6 9405-9, 26539-9u6, 39648-4, 91943-8 #### [facility] [address] [place], [place] Chloride [Moles/Vol] 109 mmol/L High 98-107 [facility] Comment on above: Performed By: #### 6 9405-9, 26277-2w1, 35705-1, 61061-0 #### [facility] [address] [place], [place] CO2 [Moles/Vol] 26 mmol/L Normal 22-32 [facility] [place] Comment on above: Performed By: #### 6 9405-9, 78287-8v4, 65895-5, 95369-9 #### [facility] [address] [place], [place] Creatinine [Mass/Vol] 1.24 mg/dL Normal 0.60-1.30 [facility] Comment on above: Performed By: #### 6 9405-9, 09663-5b9, 05617-9, 26199-5 #### [facility] [address] [place], [place] Glucose [Mass/Vol] 82 mg/dL Normal 70-99 [facility] [place] Comment on above: Result Comment: U pdated ADA Reference Range A normal fasting glucose concentration is less than 100 mg/dL. An impaired fasting glucose concentration is 100-125 mg/dL. A provisional diagnosis of diabetes mellitus can be made when a fasting glucose concentration is greater than 125 mg/dL. Performed By: #### 6 9405-9, 78672-0y2, 89819-0, 91620-0 #### [facility] [address] [place], [place] Potassium [Moles/Vol] 4.4 mmol/L Normal 3.6-5.1 [facility] Comment on above: Performed By: #### 6 9405-9, 64258-2p3, 20807-2, 18322-2 #### [facility] [address] [place], [place] Sodium [Moles/Vol] 143 mmol/L Normal 136-145 [facility] [place] Comment on above: Performed By: #### 6 9405-9, 82370-3y1, 68514-1, 07743-7 #### [facility] [address] [place], [place] Urea nitrogen (BldV) [Mass/Vol] 12 mg/dL Normal 8-20 [facility] [place] Comment on above: Performed By: #### 6 9405-9, 39700-6o6, 25117-5, 78860-9 #### [facility] [address] [place], [place] ED Pat Toan 12-30-2018 ED Pat Edu [facility] [address] [place], [place] [address] Emergency Department Discharge Instructions JACOB LANDA , Please provide this information to your Primary Care/Specialist Name : JACOB LANDA Current Date : 12/30/2018 18:05:49 : 1955 Primary Care Physician : Physician, PCP Unknown Diagnosis: Follow-Up Instructions: JACOB LANDA has been given these follow-up instructions: Laboratory Orders: Name: Status: Basic Metabolic Panel Completed Troponin I Completed GFRaa Completed GFRbb Completed Partial Thromboplastin Time (aPTT) Ordered Prothrombin Time Completed CBC Ordered Partial Thromboplastin Time (aPTT) Ordered Partial Thromboplastin Time (aPTT) Ordered CBC Ordered Troponin I Ordered Troponin I Ordered Troponin I Ordered Comprehensive Metabolic Panel Ordered Partial Thromboplastin Time (aPTT) Ordered Comprehensive Metabolic Panel Ordered Troponin I Completed Partial Thromboplastin Time (aPTT) Completed Radiology Orders: Name: Status: XR Chest 2 Views Completed Diagnostic Tests: Name: Status: ECG 12 Lead Completed ECG 12 Lead Ordered ECG PRN Communication Order Ordered ECG PRN Communication Order Ordered ECG 12 Lead Ordered Echo 2D Cmplt w M-Mode and Dopp Cmplt Ordered Cardiac Catheterization Ordered Procedure(s) and Patient Education(s) : EMERGENCY SERVICES MEDICATION LIST Lista de Medicaciones de los Servicios de Emergencia Name JACOB LANDA MRN (COL)-[id number] PLEASE READ THE FOLLOWING REGARDING YOUR MEDICATIONS Based on the information available during your visit we have given you the medication instructions below. Continue taking medications you took prior to your visit unless you have been told to change. Please share this information with your own doctor. Carry a list of your medications with you in case of an emergency. Update it when medications are stopped, doses are changed, or new medications (including yglz-ijb-ivzhlej products) are added. If you have any questions, check with your doctor. Por la informaci??n disponible richardson mcbride visita, las instrucciones de medicaci??n aparecen debajo. Favor de continuar tomando las medicaciones Ud. martin?? antes de mcbride visita por lo menos que hay cambios. Favor de compartir esta informaci??n con mcbride medico. Lleva patricia lista de medicaciones consigo por gold de emergenc??a. Actualiza la lista cuando Ud. kelsey de trevon las medicaciones, si cambian las dosis, o si hay nuevas medicaciones a??adidas (incluyendo medicaciones vendidas sin prescripci??n). Favor de preguntar a mcbride medico por cualquier mackenzie. THESE ARE THE MEDICATIONS YOU SHOULD BE TAKING AmLODIPine (amLODipine 10 mg oral tablet) 1 Tab(s) By Mouth once a day. ascorbic acid/chondroitin/glucosa/m angan (Glucosamine Chondroitin oral capsule) 3 Capsule By Mouth once a day. aspirin (aspirin 81 mg oral tablet) 1 Tab(s) By Mouth once a day. atorvastatin (atorvastatin 80 mg oral tablet) 1 Tab(s) By Mouth Bedtime. cetirizine (ZyrTEC 10 mg oral tablet) 1 Tab(s) By Mouth once a day. clopidogrel (Plavix 75 mg oral tablet) 1 Tab(s) By Mouth once a day. fluticasone nasal (Flonase 50 mcg Nasal Hutchins) 1 Hutchins(s) Nasal (Intranasal) once a day. hydroCHLOROthiazide 25 Milligram By Mouth once a day. lisinopril (lisinopril 40 mg oral tablet) 1 Tab(s) By Mouth once a day. metoprolol (Metoprolol Succinate ER 100 mg oral tablet, extended release) 1 Tab(s) By Mouth once a day. nitroglycerin (nitroglycerin 0.4 mg sublingual tablet) 1 Tab(s) Under the Tongue every 5 minutes as needed Not to exceed 3 doses/15 min--if pain persists, seek medical attention. pantoprazole (Protonix 20 mg oral enteric coated tablet) 1 Tab(s) By Mouth once a day. ranolazine (ranolazine 500 mg oral tablet, extended release) 1 Tab(s) By Mouth Twice a day. MEDICATIONS GIVEN DURING MEDICAL VISIT aspirin 325 mg last dose given on 12/30/2018 at 13:36 Route: By Mouth nitroglycerin 1 Inch last dose given on 12/30/2018 at 13:36 Route: Topical ONE PACKET = 1 INCH/1 GM - SEND PAPERS WITH PASTE heparin 5,000 Unit last dose given on 12/30/2018 at 16:02 Route: IV Push Maximum Bolus 5,000 units. Target Dose: Heparin LOW Loading Dose (std dose)* 60 Unit/kg 12/30/2018 13:40:58 NON-MEDICATION PRESCRIPTION SCHEDULING PHONE NUMBER: MEDICATION CHANGE DETAILS (Not your Final Home Medication List) During the course of your visit, your home medication list was updated with the most current information. The details of those changes are shown below: NEW MEDICATIONS None UPDATED MEDICATIONS None UNCHANGED MEDICATIONS Other Medications AmLODIPine (amLODipine 10 mg oral tablet) 1 Tab(s) By Mouth once a day. Comment ascorbic acid/chondroitin/glucosa/m angan (Glucosamine Chondroitin oral capsule) 3 Capsule By Mouth once a day. Comment aspirin (aspirin 81 mg oral tablet) 1 Tab(s) By Mouth once a day. Comment atorvastatin (atorvastatin 80 mg oral tablet) 1 Tab(s) By Mouth Bedtime. Comment cetirizine (ZyrTEC 10 mg oral tablet) 1 Tab(s) By Mouth once a day. Comment clopidogrel (Plavix 75 mg oral tablet) 1 Tab(s) By Mouth once a day. Comment fluticasone nasal (Flonase 50 mcg Nasal Hutchins) 1 Hutchins(s) Nasal (Intranasal) once a day. Comment hydroCHLOROthiazide 25 Milligram By Mouth once a day. Comment lisinopril (lisinopril 40 mg oral tablet) 1 Tab(s) By Mouth once a day. Comment metoprolol (Metoprolol Succinate ER 100 mg oral tablet, extended release) 1 Tab(s) By Mouth once a day. Comment nitroglycerin (nitroglycerin 0.4 mg sublingual tablet) 1 Tab(s) Under the Tongue every 5 minutes as needed Not to exceed 3 doses/15 min--if pain persists, seek medical attention. Comment pantoprazole (Protonix 20 mg oral enteric coated tablet) 1 Tab(s) By Mouth once a day. Comment ranolazine (ranolazine 500 mg oral tablet, extended release) 1 Tab(s) By Mouth Twice a day. Comment STOP TAKING THESE MEDICATIONS None DO NOT TAKE UNTIL YOU TALK TO YOUR DOCTOR None [facility] [address], [place] [address] Emergency Department Discharge Instructions Name: JACOB LANDA Current Date: 12/30/2018 18:05:49 : 1955 Primary Physician: Physician, PCP Unknown We would like to thank you for choosing [facility] for your emergency medical needs. We examined and treated you today on an emergency basis only. This was not a substitute for, or an effort to provide, complete medical care. In most cases, you must let your doctor (or the doctor we referred you to) check you again. Tell your doctor about any new or lasting problems. We cannot recognize and treat all injuries or illnesses in one emergency department visit. After you leave, you should follow the directions attached. Instructions for obtaining X-rays: When following up with your doctor or a bone doctor, you may need to take copies of your x-rays that were done in the Emergency Department. If you didn't receive these upon your discharge from the emergency department, please call . When the final report becomes available and it is reviewed, the emergency department will attempt to contact you if there are any changes in your instructions. It is important that you leave accurate information with us on how to contact you. IF you cannot be contacted, YOU must contact the follow-up doctor that you were assigned to make sure that the final official x-ray report does not require a change in your treatment. Instructions for obtaining medical records: If you need a copy of your medical records for follow-up, please contact the Health Information Management Department at . Their office hours are 8 AM- 4:30 PM, Sunday through Sunday. Please note: Results are not immediately available. Please allow a minimum of 48 hours for documentation and results. If you were prescribed an antibiotic: Antibiotics are life-saving drugs and they need to be used properly. Your team might change your antibiotic because test results show that a different antibiotic would be better to treat your infection. Like all medications, antibiotics have side effects. Some can be serious. This includes the risk of getting an antibiotic-resistant infection later, which may be difficult to treat. Remember to take your antibiotics as prescribed. If you have any questions please talk to your healthcare team. Seatbelts: There is no doubt that seatbelts save lives. Every day, people without seatbelts have more serious injuries. Have everyone buckle up, using age appropriate seatbelts or car seats, to reduce their risk of injury. Smoking: If you do smoke, we encourage you to stop. Smoking affects all aspects of your health and the health of those around you. [facility] [place] offers many resources to help with smoking cessation. Call the [place] Tobacco Quit Line at 0-717-XEWINOW ( ). High blood pressure: Your screening blood pressure today was 132 mm Hg / 61 mm Hg. Hypertension (high blood pressure) is blood pressure over 120/80. People with hypertension should contact their primary care provider within 30 days to follow up. Check your patient portal for additional blood pressure information. Immunizations: Immunization is a way to protect against deadly infections. Discuss this with your child's telephone order clerk room service, or Public Health Department. Your family practice doctor can determine if you need pneumonia or flu vaccine. The [facility] Department can be reached at . Substance Abuse Program: Concerns with addiction to alcohol, benzodiazepines (Ativan or Xanax) and Opiates (Heroin, Percocet, OxyContin, Methadone or Fentanyl)? [facility] offers an inpatient Substance Abuse Program to help treat the symptoms associated with medical detoxification of addictive substances. The new program offers care for non- adults (18 and older) looking to break the chain to addictive chemicals. The Substance Abuse Program is a voluntary inpatient admission and it starts with a pre-screening phone call to a social service director. During the call, goals and objectives for recovery and how the patient will transition to outpatient care will be established. Please call [phone] to get help today. Domestic Violence: If you are a victim of domestic violence (physical, verbal, or emotional), you are not alone. Discuss this with your physician or a friend and call the [place] Domestic Violence Hotline or [place] Domestic Violence Hotline for assistance and support. You are the most important factor in your recovery. Follow the provided instructions carefully. Take your medications as prescribed. Most importantly, see a doctor again as discussed. If you have problems that we have not discussed, call or visit your doctor right away. If you do not have a primary care physician, we have provided one for you to follow up with. When you call for an appointment, please inform them that you were seen in the emergency department and the date of your visit. If you are unable to reach your doctor and are still experiencing problems, return to the emergency department. For assistance finding a primary care physician, call the Physician Referral Line at [phone] [phone]-SKLS ([phone]). Suicide Hotline: Your mental and emotional well-being is important. If you are in a mental health crisis or are having thoughts of suicide, please call the nationwide suicide hotline, anytime day or night, at 8-150-370-DMZI (9038). Community Patient Care Technician Instructor: You may be contacted by your local fire department for a follow up visit from a community clinical psychology professor. The community clinical psychology professor can help with a home safety check; follow up care, and general home care management. Pharmacy Information: Below is a list of 24 hour pharmacies that we are aware of. We suggest that you call the specific pharmacy for their hours before traveling to a location. Hours may vary on holidays. [facility] [place] [address], [place] [phone] [address] [place], [place] [address] [phone] [address] [place], [place] [address] [phone] [address], [place] [phone] [address], [place] [phone] [address], [place] [phone] [place] [address] [phone] Take all medications as directed. If you need prescription assistance, contact the following agencies: ?? Partnership for Prescription Assistance at or www.pparx.org ?? [place] at or www.[place]bestrx.org ?? www.GoodRx.[employer] is a site with many valuable coupons Patient Education Materials SYEDAJACOB has been given the following patient education materials: <><><><><><><><><><><><><> <><><><><><><><><><><><><> Patient Visit Summary Signature SYEDA JACOB [place] has been given the following list of patient education materials, prescriptions and follow-up instructions: I, JACOB LANDA, have received the above patient education materials/instructions and have verbalized understanding: Date Time Patient Signature Date Time Provider Signature [facility] GFRaaon 12-30-2018 GFR/1.73 sq M predicted among blacks MDRD (S/P/Bld) [Vol rate/Area] mL/min/{1.73_m2} [facility] Comment on above: Result Comment: The MDRD equation has not been validated for those over 70 years, women, patients with serious co-morbid conditions, or with extremes of body size, muscle mass of nutritional status. Performed By: #### 6 9405-9, 39470-1o0, 83708-8, 25885-5 #### LEIL[place] [address] GFRbbon 12-30-2018 GFR/1.73 sq M predicted among non-blacks MDRD (S/P/Bld) [Vol rate/Area] 59 mL/min/{1.73_m2} [facility] Comment on above: Performed By: #### 6 9405-9, 92372-3i2, 19008-9, 17506-2 #### [place] [address] [place], [place] Partial Thromboplastin Time (aPTT)on 12-30-2018 aPTT Coag (PPP) [Time] 26.5 Sec Normal 23.3-35.3 [facility] [place] Comment on above: Result Comment: LAUREN CANCHOLA NOTE: OF OCTOBER 01, 2018,NEW NORMAL REFERENCE RANGE Performed By: #### 3 173-2, 5902-2 #### [address] Prothrombin Timeon 9 INR Coag (Bld) [Relative time] 1.09 {INR} Normal [facility] [place] Comment on above: Result Comment: The recommended therapeutic INR range for most cardiac indications is 2.0-3.0. For high intensity therapy(ie.mechanical heart valves), the recommended range is 2.5-3.5. Performed By: #### 3 173-2, 5902-2 #### [address] PT Coag (PPP) [Time] 14.4 Sec Normal 11.9-14.7 [facility] Comment on above: Result Comment: LAUREN CANCHOLA NOTE: OF OCTOBER 01, 2018,NEW NORMAL REFERENCE RANGE Performed By: #### 3 173-2, 5902-2 #### [address] Troponin Ion 12-30-2018 Troponin I.cardiac [Mass/Vol] 0.11 ng/mL High <0.06 [facility] [place] Comment on above: Performed By: #### 1 0839-9 #### [address] Troponin I.cardiac [Mass/Vol] 0.08 ng/mL High <0.06 [facility] [place] Comment on above: Performed By: #### 6 9405-9, 37196-0m5, 23302-8, 24878-2 #### [address] XR Chest 2 Viewson 9 XR Chest 2 views EXAMINATION TYPE: XR Chest 2 Views DATE OF EXAM : 12/30/2018 1:49 PM HISTORY: Chest Pain , shortness of breath COMPARISON: NONE FINDINGS: Cardiac silhouette is within normal limits. There is no lung consolidation or pleural effusion. There are sternotomy wires. IMPRESSION: No acute abnormality [place] thanks you for the opportunity to care for your patient. Workstation ID: [id number] - [id number] FINAL REPORT Dictated By: Maximus Rogers MD 12/30/2018 13:55 Assigned Physician: Maximus Rogers MD Reviewed and Electronically Signed By: Maximus Rogers MD 12/30/2018 13:56 Transcribed by: HEATH 12/30/2018 13:55 Technologist: ELISE Normal [facility] [place] MSCon 11-24-2017 [facility] REPORT Normal [facility] DATE OF SERVICE: 11/24/2017REASON FOR VISIT: Painful rash on the back.HISTORY OF PRESENT ILLNESS: This is a 62-year-old male presenting with an area ofpainful rash on the low back since yesterday. Patient stated that he had cellulitison his back about a month ago. At that time he was treated with 2 antibiotics. 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 Denied any underlyingdiabetes. Before this last episode, he never had these kind of symptoms before. Nofever or chills. Review of other systems normal.PAST MEDICAL HISTORY, FAMILY HISTORY, SOCIAL HISTORY: Reviewed.ALLERGIES: NKA.MEDICATIONS: List reviewed.PHYSICAL EXAMINATION: General: On examination he is awake, alert, not in distress.No dyspnea. Vital Signs: Temperature 98.1, blood pressure 140/89, pulse 80,respirations 16, pulse oximetry 97% on room air. Pain score 5/10. HEENT:Unremarkable. Chest: Clear to auscultation. Heart: Regular rate and rhythm.Back: Examination of the back reveals the entire lumbar area skin is erythematous,indurated and tender. No blisters or pustules. No skin excoriation. Clinicallyappears to be superficial cellulitis. The rest of the skin was normal.ASSESSMENT: Cellulitis of the back.PLAN: Clinical findings were discussed with the patient in detail. I explained tohim that it appears that he has recurrence of the cellulitis again. I gave himBactrim DS 1 tablet twice a day for 10 days and Keflex 500 mg 3 times a day for 1week with no refills. He should try cold compress, Tylenol or Motrin as needed. Iwant him to follow up with his family doctor for further evaluation and care.Patient understood and agreed. His questions were answered to his satisfaction. BOBBY Zepeda/[id number]: 11/24/2017 11:08DT: 11/25/2017 06:31SSI File#: [id number] #: [id number]/Reviewed by12/17/17 1421 PAWPR [facility] PATIENT NAME: JACOB LANDA R[address] [facility] [address] MEDICAL REC #: [id number], [place] [address] HEALTH REPORT STATC[facility] PHYSIC[address] [facility] [place] Basic Metabolic Profon 07-20 (cont.) [facility] Comment on above: Result Comment: Aver age GFR for 60-69 years old: 85 mL/min/1.73sq mChronic Kidney Disease: <60 mL/min/1.73sq mKidney failure: <15 mL/min/1.73sq meGFR calculated using average adult body mass. Additional eGFR calculator available at:http://www.[employer]/multiple_crcl_2011.htmPerformed at [facility] [address] [place] [address] Performed By: #### C DP, BMP, BNP, TROPI ####[facility] [place] [address] Anion gap 12 mmol/L Normal 9-17 [facility] Comment on above: Performed By: #### C DP, BMP, BNP, TROPI ####[place] [address] [place] [address] BUN/CRE Ratio 13 Normal 9-20 [facility] Comment on above: Performed By: #### C DP, BMP, BNP, TROPI ####[place] [address] [place] [address] Calcium 9.3 mg/dL Normal 8.6-10.4 [facility] Comment on above: Performed By: #### C DP, BMP, BNP, TROPI ####[address] [place] [address] Chloride 103 mmol/L Normal 98-107 [facility] Comment on above: Performed By: #### C DP, BMP, BNP, TROPI ####[address] [place] [address] CO2 27 mmol/L Normal 20-31 [facility] Comment on above: Performed By: #### C DP, BMP, BNP, TROPI ####[place] [address] [place] [address] Creatinine 1.20 mg/dL Normal 0.70-1.20 [facility] Comment on above: Performed By: #### C DP, BMP, BNP, TROPI ####[place] [address] [place] [address] eGFR (non-black) mL/min/{1.73_m2} Normal >60 [facility] Comment on above: Performed By: #### C DP, BMP, BNP, TROPI ####[address] [place] [address] Glucose mass conc 182 mg/dL High 70-99 [facility] Comment on above: Performed By: #### C DP, BMP, BNP, TROPI ####[facility] [place] [address] Potassium molar conc 3.7 mmol/L Normal 3.7-5.3 [facility] Comment on above: Performed By: #### C DP, BMP, BNP, TROPI ####[address] [place] [address] Sodium 142 mmol/L Normal 135-144 [facility] Comment on above: Performed By: #### C DP, BMP, BNP, TROPI ####[address] [place] [address] Urea nitrogen 16 mg/dL Normal 8-23 [facility] Comment on above: Performed By: #### C DP, BMP, BNP, TROPI ####[place] [address] [place] [address] Staging: NOT REPORTED Normal [facility] Comment on above: Performed By: #### C DP, BMP, BNP, TROPI ####[address] [place] [address] Brain Natri. Peptideon 07-20 BNP Normal [facility] Comment on above: Result Comment: Pro- BNP Reference Range:Rule Out: <300Grey Zone: Age <50 300-450 Age 50-75 300-900 Age >75 300-1800Usually represents mild to moderate HF but other cardiopulmonary causes cannot be ruled out.Rule In: Age <50 >450 Age 50-75 >900 Age >75 >1800Performed at [facility] [address] [place] [address] Performed By: #### C DP, BMP, BNP, TROPI ####[place] [address] [place] [address] BNP 109 pg/mL Normal <300 [facility] Comment on above: Result Comment: Pro- BNP results cannot be compared to BNP results. Performed By: #### C DP, BMP, BNP, TROPI ####[place] [address] [place] [address] CBC with Diffon 07-20-2017 Abs. Basophil 0.00 k/uL Normal 0.0-0.2 [facility] Comment on above: Result Comment: Perf ormed at [facility] [address] [place] [place] [address] Performed By: #### C DP, BMP, BNP, TROPI ####[place] [address] [place] [address] Abs.Neutrophil (Seg) 3.30 k/uL Normal 2.1-6.5 [facility] Comment on above: Performed By: #### C DP, BMP, BNP, TROPI ####[address] [place] [address] Auto Diff Performed YES Normal [facility] Comment on above: Performed By: #### C DP, BMP, BNP, TROPI ####[address] [place] [address] Basophils/100 WBC Auto (Bld) 1 % Normal 0-2 [facility] Comment on above: Performed By: #### C DP, BMP, BNP, TROPI ####[address] [place] [address] Eosinophils 0.10 10*3/uL Normal 0.0-0.4 [facility] Comment on above: Performed By: #### C DP, BMP, BNP, TROPI ####[place] [address] [place] [address] Eosinophils/100 leukocytes 2 % Normal 0-5 [facility] Comment on above: Performed By: #### C DP, BMP, BNP, TROPI ####[facility] [place] [place] [address] Erythrocyte distribution width Auto Ratio (RBC) 13.7 % Normal 12.1-15.2 [facility] Comment on above: Performed By: #### C DP, BMP, BNP, TROPI ####[place] [address] [place] [address] Erythrocytes (RBC) 5.00 10*6/uL Normal 4.5-5.9 [facility] Comment on above: Performed By: #### C DP, BMP, BNP, TROPI ####[address] [place] [address] Hematocrit (HCT) 43.2 % Normal 41-53 [facility] Comment on above: Performed By: #### C DP, BMP, BNP, TROPI ####[address] [place] [address] Hemoglobin mass conc (Bld) 14.7 g/dL Normal 13.5-17.5 [facility] Comment on above: Performed By: #### C DP, BMP, BNP, TROPI ####[address] [place] [address] Lymphocytes 1.00 10*3/uL Normal 1.0-4.8 [facility] Comment on above: Performed By: #### C DP, BMP, BNP, TROPI ####[address] [place] [address] Lymphocytes/100 leukocytes 22 % Normal 13-44 [facility] Comment on above: Performed By: #### C DP, BMP, BNP, TROPI ####[place] [address] [place] [address] MCH 29.4 pg Normal 26-34 [facility] Comment on above: Performed By: #### C DP, BMP, BNP, TROPI ####[facility] [place] [address] MCHC mass conc (RBC) 34.0 g/dL Normal 31-37 [facility] Comment on above: Performed By: #### C DP, BMP, BNP, TROPI ####[facility] [place] [address] MCV 86.4 fL Normal 80-100 [facility] Comment on above: Performed By: #### C DP, BMP, BNP, TROPI ####[facility] [place] [place] [address] Monocytes 0.30 10*3/uL Normal 0.0-1.0 [facility] Comment on above: Performed By: #### C DP, BMP, BNP, TROPI ####[place] [address] [place] [place] [address] Monocytes/100 leukocytes 5 % Normal 5-9 [facility] Comment on above: Performed By: #### C DP, BMP, BNP, TROPI ####[place] [address] [place] [place] [address] Neutrophil (Seg) 70 % Normal 39-75 [facility] Comment on above: Performed By: #### C DP, BMP, BNP, TROPI ####[place] [address] [place] [address] Platelets 165 10*3/uL Normal 140-450 [facility] Comment on above: Performed By: #### C DP, BMP, BNP, TROPI ####[place] [address] [place] [place] [address] WBC (Leukocytes) 4.6 10*3/uL Normal 3.5-11.0 [facility] Comment on above: Performed By: #### C DP, BMP, BNP, TROPI ####[place] [address] [place] [address] Erythrocyte morphology NOT REPORTED Normal [facility] Comment on above: Performed By: #### C DP, BMP, BNP, TROPI ####[facility] [place] [address] Erythrocytes (RBC) NOT REPORTED Normal [facility] Comment on above: Performed By: #### C DP, BMP, BNP, TROPI ####[facility] [place] [address] Granulocytes/100 WBC (Bld) NOT REPORTED Normal 0.00-0.30 [facility] Comment on above: Performed By: #### C DP, BMP, BNP, TROPI ####[facility] [place] [address] Immature granulocytes #/vol (Bld) NOT REPORTED Normal 0 [facility] Comment on above: Performed By: #### C DP, BMP, BNP, TROPI ####[facility] [place] [address] Platelet mean volume (PMV) NOT REPORTED Normal 6.0-12.0 [facility] Comment on above: Performed By: #### C DP, BMP, BNP, TROPI ####[facility] [place] [address] Platelets NOT REPORTED Normal [facility] Comment on above: Performed By: #### C DP, BMP, BNP, TROPI ####[facility] [address] WBC Morphology NOT REPORTED Normal [facility] Comment on above: Performed By: #### C DP, BMP, BNP, TROPI ####[facility] [place] [address] ED Noteon 07-20-2017 HIM IP Note OR Fisheries Director Normal [facility] HIM IP Note OR Fisheries Director Normal [facility] ED Provider Noteon 8 HIM IP Note OR Fisheries Director Normal [facility] Troponinon 07-20-2017 Troponin I.cardiac mass conc Normal [facility] Comment on above: Result Comment: Refe rence Range: <0.03 Within reference range. 0.03-0.09 Possible myocardial damage.Repeat at appropriate intervals to rule out chronic elevation. >= 0.10 Indicative of myocardial damage.Patients with high levels of Biotin oral intake (i.e >5mg/day) may have falsely decreased Troponin T levels. Samples collected within 8 hours of biotin intake may require additional information for diagnosis.Performed at [facility] [address] [place] [address] Performed By: #### T ROPI ####[facility] [place] [address] Troponin T.cardiac mass conc ug/L Normal <0.03 [facility] Comment on above: Result Comment: Trop onin T results cannot be compared to Troponin-I results. Performed By: #### T ROPI ####[place] [id number] [place] [address] Troponin I.cardiac mass conc Normal [facility] Comment on above: Result Comment: Refe rence Range: <0.03 Within reference range. 0.03-0.09 Possible myocardial damage.Repeat at appropriate intervals to rule out chronic elevation. >= 0.10 Indicative of myocardial damage.Patients with high levels of Biotin oral intake (i.e >5mg/day) may have falsely decreased Troponin T levels. Samples collected within 8 hours of biotin intake may require additional information for diagnosis.Performed at [facility] [address] [place] [address] Performed By: #### C DP, BMP, BNP, TROPI ####[facility] [place] [address] Troponin T.cardiac mass conc ug/L Normal <0.03 [facility] Comment on above: Result Comment: Trop onin T results cannot be compared to Troponin-I results. Performed By: #### C DP, BMP, BNP, TROPI ####[facility] [place] [address] XR CHEST (2 VW)on 07-20-2017 XR CHEST (2 VW) Chest, 2 views on 3 radiographs:CLINICAL HISTORY: Shortness of breath.COMPARISON: 07/15/2013.FINDINGS: Prior median sternotomy and CABG. Cardiomediastinal contour is within normal limits. No focal consolidative process, pulmonary edema, pleural effusion or pneumothorax. Osseous structures are intact.IMPRESSION: No acute cardiopulmonary process.Interpreted by:HUDSON Diasigned by:Benito Andre MD07/20/17inal result Normal [facility] Vital Signs Date Time Vital Sign Value Performing Clinician Curt morales 12-24-2024 09:43-0400 Body mass index (BMI) [Ratio] 21.32 kg/m2 Bobby Swank RAILROAD CONDUCTOR.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 Work Phone: [facility] 12-24-2024 09:43-0400 Body temperature 98.01 [degF] Bobby Swank RAILROAD CONDUCTOR.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 Work Phone: [facility] 12-24-2024 09:43-0400 Body weight 67.4 kg Bobby Swank RAILROAD CONDUCTOR.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 Work Phone: [facility] 12-24-2024 09:43-0400 Diastolic blood pressure 72 mm[Hg] Bobby Swank RAILROAD CONDUCTOR.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 Work Phone: [facility] 12-24-2024 09:43-0400 Heart rate 79 /min Bobby Swank RAILROAD CONDUCTOR.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 Work Phone: [facility] 12-24-2024 09:43-0400 Respiratory rate 18 /min Bobby Swank RAILROAD CONDUCTOR.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 Work Phone: [facility] 12-24-2024 09:43-0400 SaO2% (BldA) [Mass fraction] 98 % Bobby Swank RAILROAD CONDUCTOR.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 Work Phone: [facility] 12-24-2024 09:43-0400 Systolic blood pressure 122 mm[Hg] Bobby Bruce BRANDON Work Phone: [facility] 11-14-2024 09:30-0400 Body height 175.[address] Yaw Yoder Work Phone: [facility] 11-14-2024 09:30-0400 Body mass index (BMI) [Ratio] 22.8 kg/m2 Dr. Yaw Singh MD Work Phone: [facility] 11-14-2024 09:30-0400 Body weight 70.[address] Yaw Yoder Work Phone: [facility] 11-07-2024 09:37-0400 Body mass index (BMI) [Ratio] 22.38 kg/m2 Richard Masci DO Work Phone: [facility] 11-07-2024 09:37-0400 Body temperature 97.11 [degF] Richard Masci DO Work Phone: [facility] 11-07-2024 09:37-0400 Body weight 70.76 kg Richard Masci DO Work Phone: [facility] 11-07-2024 09:37-0400 Diastolic blood pressure 71 mm[Hg] Richard Masci DO Work Phone: [facility] 11-07-2024 09:37-0400 Heart rate 87 /min Richard Masci DO Work Phone: [facility] 11-07-2024 09:37-0400 SaO2% (BldA) [Mass fraction] 95 % Richard Masci DO Work Phone: [facility] 11-07-2024 09:37-0400 Systolic blood pressure 111 mm[Hg] Richard Masci DO Work Phone: [facility] 10-23-2024 14:53-0400 Body height 177.8 cm Delicia Díaz MD Work Phone: [facility] 10-23-2024 14:53-0400 Body mass index (BMI) [Ratio] 23.02 kg/m2 Delicia Díaz MD Work Phone: [facility] 10-23-2024 14:53-0400 Body weight 72.76 kg Delicia Díaz MD Work Phone: [facility] 10-23-2024 14:53-0400 Diastolic blood pressure 62 mm[Hg] Delicia Díaz MD Work Phone: [facility] 10-23-2024 14:53-0400 Heart rate 83 /min Delicia Díaz MD Work Phone: [facility] 10-23-2024 14:53-0400 Respiratory rate 21 /min Delicia Díaz MD Work Phone: [facility] 10-23-2024 14:53-0400 SaO2% (BldA) [Mass fraction] 95 % Delicia Díaz MD Work Phone: [facility] 10-23-2024 14:53-0400 Systolic blood pressure 112 mm[Hg] Delicia Díaz MD Work Phone: [facility] 10-15-2024 09:21-0400 Body height 175.[address] Yaw Yoder Work Phone: [facility] 10-15-2024 09:21-0400 Body weight 73.[address] Yaw Yoder Work Phone: [facility] 10-14-2024 09:21-0400 Body mass index (BMI) [Ratio] 23.8 kg/m2 Dr. Yaw Singh MD Work Phone: [facility] 10-07-2024 12:33-0400 Body mass index (BMI) [Ratio] 23.1 kg/m2 Usha Mcgovern PA-C Work Phone: [facility] 10-07-2024 12:33-0400 Body temperature 97.2 [degF] Usha Troncoso Work Phone: [facility] 10-07-2024 12:33-0400 Body weight 73.03 kg Usha Mcgovern PA- C Work Phone: [facility] 10-07-2024 12:33-0400 Diastolic blood pressure 60 mm[Hg] Usha Mcgovern PA-C Work Phone: [facility] 10-07-2024 12:33-0400 Heart rate 88 /min Usha Mcgovern PA- C Work Phone: [facility] 10-07-2024 12:33-0400 Respiratory rate 18 /min Usha Mcgovern PA- C Work Phone: [facility] 10-07-2024 12:33-0400 Systolic blood pressure 98 mm[Hg] Usha Mcgovern PA-C Work Phone: [facility] 09-22-2024 07:26-0400 Body mass index (BMI) [Ratio] 22.96 kg/m2 Yaw Singh MD Work Phone: [facility] 09-22-2024 07:26-0400 Body weight 72.58 kg Yaw Singh MD Work Phone: [facility] 09-22-2024 07:26-0400 Diastolic blood pressure 68 mm[Hg] Yaw Singh MD Work Phone: [facility] 09-22-2024 07:26-0400 Heart rate 104 /min Yaw Singh MD Work Phone: [facility] 09-22-2024 07:26-0400 Respiratory rate 18 /min Yaw Singh MD Work Phone: [facility] 09-22-2024 07:26-0400 SaO2% (BldA) [Mass fraction] 96 % Yaw Singh MD Work Phone: [facility] 09-22-2024 07:26-0400 Systolic blood pressure 112 mm[Hg] Yaw Singh MD Work Phone: [facility] 09-17-2024 22:19-0400 Body temperature 98.2 [degF] Dr. Yaw Yoder Work Phone: [facility] 09-17-2024 22:19-0400 Diastolic blood pressure 56 mm[Hg] Dr. Yaw Singh MD Work Phone: [facility] 09-17-2024 22:19-0400 Heart rate 74 /min Dr. Yaw Yoder Work Phone: [facility] 09-17-2024 22:19-0400 Respiratory rate 14 /min Dr. Yaw Yoder Work Phone: [facility] 09-17-2024 22:19-0400 SaO2% (BldA) [Mass fraction] 95 % Dr. Yaw Singh MD Work Phone: [facility] 09-17-2024 22:19-0400 Systolic blood pressure 101 mm[Hg] Dr. Yaw Singh MD Work Phone: [facility] 09-17-2024 17:30-0400 Body height 175.[address] Yaw Yoder Work Phone: [facility] 09-17-2024 17:30-0400 Body mass index (BMI) [Ratio] 23.6 kg/m2 Dr. Yaw Singh MD Work Phone: [facility] 09-17-2024 17:30-0400 Body weight 72.[address] Yaw Yoder Work Phone: [facility] 09-12-2024 08:41-0400 Body mass index (BMI) [Ratio] 23.34 kg/m2 Yaw Smith APRN.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 Work Phone: [facility] 09-12-2024 08:41-0400 Body temperature 97.81 [degF] Yaw Smith APRN.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 Work Phone: [facility] 09-12-2024 08:41-0400 Body weight 73.8 kg Yaw Smith APRN.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 Work Phone: [facility] 09-12-2024 08:41-0400 Diastolic blood pressure 70 mm[Hg] Yaw Smith RAILROAD CONDUCTOR.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 Work Phone: [facility] 09-12-2024 08:41-0400 Heart rate 86 /min Ywa Smith RAILROAD CONDUCTOR.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 Work Phone: [facility] 09-12-2024 08:41-0400 Respiratory rate 18 /min Yaw Smith RAILROAD CONDUCTOR.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 Work Phone: [facility] 09-12-2024 08:41-0400 SaO2% (BldA) [Mass fraction] 97 % Yaw Luis RAILROAD CONDUCTOR.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 Work Phone: [facility] 09-12-2024 08:41-0400 Systolic blood pressure 118 mm[Hg] Yaw Smith RAILROAD CONDUCTOR.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 Work Phone: [facility] 09-02-2024 13:52-0400 Body temperature 97.5 [degF] Dr. Yaw Yoder Work Phone: [facility] 09-02-2024 13:52-0400 Body weight 73.[address] Yaw Yoder Work Phone: [facility] 09-02-2024 13:52-0400 Diastolic blood pressure 71 mm[Hg] Dr. Yaw Singh MD Work Phone: [facility] 09-02-2024 13:52-0400 Heart rate 112 /min Dr. Yaw Yoder Work Phone: [facility] 09-02-2024 13:52-0400 Respiratory rate 16 /min Dr. Yaw Yoder Work Phone: [facility] 09-02-2024 13:52-0400 SaO2% (BldA) [Mass fraction] 96 % Dr. Yaw Singh MD Work Phone: [facility] 09-02-2024 13:52-0400 Systolic blood pressure 107 mm[Hg] Dr. Yaw Singh MD Work Phone: [facility] 08-20-2024 08:23-0400 Body mass index (BMI) [Ratio] 23.5 kg/m2 Steve Clutter PA-C Work Phone: [facility] 08-20-2024 08:23-0400 Body temperature 97.2 [degF] Steve Clutter PA-C Work Phone: [facility] 08-20-2024 08:23-0400 Body weight 74.3 kg Steve Clutter PA-C Work Phone: [facility] 08-20-2024 08:23-0400 Diastolic blood pressure 74 mm[Hg] Steve Clutter PA-C Work Phone: [facility] 08-20-2024 08:23-0400 Heart rate 84 /min Steve Clutter PA-C Work Phone: [facility] 08-20-2024 08:23-0400 Respiratory rate 16 /min Steve Clutter PA-C Work Phone: [facility] 08-20-2024 08:23-0400 SaO2% (BldA) [Mass fraction] 96 % Steve Clutter PA-C Work Phone: [facility] 08-20-2024 08:23-0400 Systolic blood pressure 118 mm[Hg] Steve Clutter PA-C Work Phone: [facility] 08-05-2024 12:39-0400 Body mass index (BMI) [Ratio] 23.82 kg/m2 Krislyn Aberegg PA Work Phone: [facility] 08-05-2024 12:39-0400 Body temperature 98.2 [degF] Krislyn Aberegg PA Work Phone: [facility] 08-05-2024 12:39-0400 Body weight 75.3 kg Krislyn Aberegg PA Work Phone: [facility] 08-05-2024 12:39-0400 Diastolic blood pressure 64 mm[Hg] Krislyn Aberegg PA Work Phone: [facility] 08-05-2024 12:39-0400 Heart rate 90 /min Krislyn Aberegg PA Work Phone: [facility] 08-05-2024 12:39-0400 Respiratory rate 16 /min Krislyn Aberegg PA Work Phone: [facility] 08-05-2024 12:39-0400 SaO2% (BldA) [Mass fraction] 98 % Krislyn Aberegg PA Work Phone: [facility] 08-05-2024 12:39-0400 Systolic blood pressure 122 mm[Hg] Krislyn Aberegg PA Work Phone: [facility] 07-22-2024 14:21-0400 Body temperature 98.2 [degF] Dr. Yaw Yoder Work Phone: [facility] 07-22-2024 14:21-0400 Body weight 74.[address] Yaw Yoder Work Phone: 4(303)[phone] [place] [address] 07-22-2024 14:21-0400 Diastolic blood pressure 65 mm[Hg] Dr. Yaw Singh MD Work Phone: 2(838)684-836404 [place] [address] 07-22-2024 14:21-0400 Heart rate 86 /min Dr. Yaw Yoder Work Phone: [facility] 07-22-2024 14:21-0400 Respiratory rate 16 /min Dr. Yaw Yoder Work Phone: [facility] 07-22-2024 14:21-0400 SaO2% (BldA) [Mass fraction] 97 % Dr. Yaw Singh MD Work Phone: [facility] 07-22-2024 14:21-0400 Systolic blood pressure 103 mm[Hg] Dr. Yaw Singh MD Work Phone: 7(636)[phone] [place] [address] 06-30-2024 13:22-0400 Body mass index (BMI) [Ratio] 23.24 kg/m2 Yaw Singh MD Work Phone: [facility] 06-30-2024 13:22-0400 Body temperature 97.7 [degF] Yaw Singh MD Work Phone: [facility] 06-30-2024 13:22-0400 Body weight 73.48 kg Yaw Singh MD Work Phone: [facility] 06-30-2024 13:22-0400 Diastolic blood pressure 74 mm[Hg] Yaw Singh MD Work Phone: [facility] 06-30-2024 13:22-0400 Heart rate 70 /min Yaw Singh MD Work Phone: [facility] 06-30-2024 13:22-0400 Respiratory rate 18 /min Yaw Singh MD Work Phone: [facility] 06-30-2024 13:22-0400 Systolic blood pressure 112 mm[Hg] Yaw Singh MD Work Phone: [facility] 06-30-2024 11:17-0400 Body temperature 98.4 [degF] Dr. Yaw Yoder Work Phone: [facility] 06-30-2024 11:17-0400 Diastolic blood pressure 73 mm[Hg] Dr. Yaw Singh MD Work Phone: [facility] 06-30-2024 11:17-0400 Heart rate 79 /min Dr. Yaw Yoder Work Phone: [facility] 06-30-2024 11:17-0400 Respiratory rate 16 /min Dr. Yaw Yoder Work Phone: [facility] 06-30-2024 11:17-0400 SaO2% (BldA) [Mass fraction] 99 % Dr. Yaw Singh MD Work Phone: [facility] 06-30-2024 11:17-0400 Systolic blood pressure 104 mm[Hg] Dr. Yaw Singh MD Work Phone: [facility] 06-30-2024 07:02-0400 Body height 175.[address] Yaw Yoder Work Phone: [facility] 06-30-2024 07:02-0400 Body mass index (BMI) [Ratio] 23.8 kg/m2 Dr. Yaw Singh MD Work Phone: [facility] 06-30-2024 07:02-0400 Body weight 73.[address] Yaw Yoder Work Phone: [facility] 06-11-2024 08:10-0500 Body height 177.8 cm [facility] Work Phone: [facility] 06-11-2024 08:10-0500 Body mass index (BMI) [Ratio] 23.38 kg/m2 [facility] Work Phone: [facility] 06-11-2024 08:10-0500 Body temperature 98.49 [degF] [facility] Work Phone: [facility] 06-11-2024 08:10-0500 Body weight 73.9 kg [facility] Work Phone: [facility] 06-11-2024 08:10-0500 Diastolic blood pressure 76 mm[Hg] [facility] Work Phone: [facility] 06-11-2024 08:10-0500 Heart rate 93 /min [facility] Work Phone: [facility] 06-11-2024 08:10-0500 SaO2% (BldA) [Mass fraction] 99 % [facility] Work Phone: [facility] 06-11-2024 08:10-0500 Systolic blood pressure 128 mm[Hg] [facility] Work Phone: [facility] 06-11-2024 08:07-0500 Body height 177.8 cm [facility] Work Phone: [facility] 06-11-2024 08:07-0500 Body mass index (BMI) [Ratio] 23.38 kg/m2 [facility] Work Phone: [facility] 06-11-2024 08:07-0500 Body temperature 98.49 [degF] [facility] Work Phone: [facility] 06-11-2024 08:07-0500 Body weight 73.9 kg [facility] Work Phone: [facility] 06-11-2024 08:07-0500 Diastolic blood pressure 76 mm[Hg] [facility] Work Phone: [facility] 06-11-2024 08:07-0500 Heart rate 93 /min [facility] Work Phone: [facility] 06-11-2024 08:07-0500 SaO2% (BldA) [Mass fraction] 98 % [facility] Work Phone: [facility] 06-11-2024 08:07-0500 Systolic blood pressure 128 mm[Hg] [facility] Work Phone: [facility] 05-07-2024 08:28-0500 Body mass index (BMI) [Ratio] 23.5 kg/m2 Edwin Montes RAILROAD CONDUCTOR.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 Work Phone: [facility] 05-07-2024 08:28-0500 Body temperature 97.7 [degF] Edwin Montes RAILROAD CONDUCTOR.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 Work Phone: [facility] 05-07-2024 08:28-0500 Body weight 74.3 kg Edwin Montes RAILROAD CONDUCTOR.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 Work Phone: [facility] 05-07-2024 08:28-0500 Diastolic blood pressure 78 mm[Hg] Edwin Montes RAILROAD CONDUCTOR.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 Work Phone: [facility] 05-07-2024 08:28-0500 Heart rate 117 /min Edwin Montes RAILROAD CONDUCTOR.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 Work Phone: [facility] 05-07-2024 08:28-0500 Respiratory rate 16 /min Edwin Montes RAILROAD CONDUCTOR.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 Work Phone: [facility] 05-07-2024 08:28-0500 SaO2% (BldA) [Mass fraction] 98 % Edwin Montes RAILROAD CONDUCTOR.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 Work Phone: [facility] 05-07-2024 08:28-0500 Systolic blood pressure 118 mm[Hg] Edwin Montes ADALGISA.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 Work Phone: [facility] 05-02-2024 15:29-0500 Body mass index (BMI) [Ratio] 23.1 kg/m2 Richard Masci DO Work Phone: [facility] 05-02-2024 15:29-0500 Body temperature 98.4 [degF] Richard Masci DO Work Phone: [facility] 05-02-2024 15:29-0500 Body weight 73.03 kg Richard Masci DO Work Phone: [facility] 05-02-2024 15:29-0500 Diastolic blood pressure 82 mm[Hg] Richard Masci DO Work Phone: [facility] 05-02-2024 15:29-0500 Heart rate 77 /min Richard Masci DO Work Phone: [facility] 05-02-2024 15:29-0500 SaO2% (BldA) [Mass fraction] 95 % Richard Masci DO Work Phone: [facility] 05-02-2024 15:29-0500 Systolic blood pressure 129 mm[Hg] Richard Masci DO Work Phone: [facility] 04-29-2024 13:43-0500 Body height 177.[address] Yaw Yoder Work Phone: [facility] 04-29-2024 13:43-0500 Body mass index (BMI) [Ratio] 22.5 kg/m2 Dr. Yaw Singh MD Work Phone: [facility] 04-29-2024 13:43-0500 Body weight 71.[address] Yaw Yoder Work Phone: [facility] 04-29-2024 13:43-0500 Diastolic blood pressure 69 mm[Hg] Dr. Yaw Singh MD Work Phone: 7(255)736-792830 [place] [address] 04-29-2024 13:43-0500 Heart rate 96 /min Dr. Yaw Yoder Work Phone: 4(304)429-272130 [place] [address] 04-29-2024 13:43-0500 Respiratory rate 16 /min Dr. Yaw Yoder Work Phone: 0(346)991-657230 [place] [address] 04-29-2024 13:43-0500 Systolic blood pressure 98 mm[Hg] Dr. Yaw Singh MD Work Phone: 5(902)[phone] [place] [address] 04-28-2024 14:24-0500 Body temperature 97.7 [degF] Dr. Yaw Yoder Work Phone: 8(815)408-749030 [place] [address] 04-28-2024 14:24-0500 Body weight 72.[address] Yaw Yoder Work Phone: 8(743)190-052930 [place] [address] 04-28-2024 14:24-0500 Diastolic blood pressure 73 mm[Hg] Dr. Yaw Singh MD Work Phone: 8(071)762-586930 [place] [address] 04-28-2024 14:24-0500 Heart rate 77 /min Dr. Yaw Yoder Work Phone: 6(104)772-248330 [place] [address] 04-28-2024 14:24-0500 Respiratory rate 16 /min Dr. Yaw Yoder Work Phone: 2(758)665-253830 [place] [address] 04-28-2024 14:24-0500 SaO2% (BldA) [Mass fraction] 98 % Dr. Yaw Singh MD Work Phone: 2(777)563-055830 [place] [address] 04-28-2024 14:24-0500 Systolic blood pressure 115 mm[Hg] Dr. Yaw Singh MD Work Phone: 2(080)314-586130 [place] [address] 03-11-2024 10:00-0500 Body height 177.8 cm Yaw Singh MD Work Phone: 6(617)757-356940 [place] [address] 03-11-2024 10:00-0500 Body mass index (BMI) [Ratio] 22.53 kg/m2 Yaw Singh MD Work Phone: [facility] 03-11-2024 10:00-0500 Body weight 71.22 kg Yaw Singh MD Work Phone: [facility] 03-11-2024 10:00-0500 Diastolic blood pressure 76 mm[Hg] Yaw Singh MD Work Phone: [facility] 03-11-2024 10:00-0500 Heart rate 94 /min Yaw Singh MD Work Phone: [facility] 03-11-2024 10:00-0500 Respiratory rate 16 /min Yaw Singh MD Work Phone: [facility] 03-11-2024 10:00-0500 Systolic blood pressure 120 mm[Hg] Yaw Singh MD Work Phone: [facility] 01-31-2024 09:28-0400 Body height 177.8 cm Zachary Seabold RAILROAD CONDUCTOR.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 Work Phone: [facility] 01-31-2024 09:28-0400 Body mass index (BMI) [Ratio] 22.24 kg/m2 Zachary Seabold RAILROAD CONDUCTOR.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 Work Phone: [facility] 01-31-2024 09:28-0400 Body temperature 97.7 [degF] Zachary Seabold RAILROAD CONDUCTOR.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 Work Phone: [facility] 01-31-2024 09:28-0400 Body weight 70.31 kg Zachary Seabold RAILROAD CONDUCTOR.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 Work Phone: [facility] 01-31-2024 09:28-0400 Diastolic blood pressure 71 mm[Hg] Zachary Seabold RAILROAD CONDUCTOR.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 Work Phone: [facility] 01-31-2024 09:28-0400 Heart rate 89 /min Zachary Seabold RAILROAD CONDUCTOR.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 Work Phone: [facility] 01-31-2024 09:28-0400 Respiratory rate 24 /min Zachary Seabold RAILROAD CONDUCTOR.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 Work Phone: [facility] 01-31-2024 09:28-0400 SaO2% (BldA) [Mass fraction] 100 % Zachary Seabold RAILROAD CONDUCTOR.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 Work Phone: [facility] 01-31-2024 09:28-0400 Systolic blood pressure 103 mm[Hg] Zachary Seabold RAILROAD CONDUCTOR.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 Work Phone: [facility] 01-17-2024 10:38-0400 Body height 175.3 cm Yaw Singh MD Work Phone: [facility] 01-17-2024 10:38-0400 Body mass index (BMI) [Ratio] 23.48 kg/m2 Yaw Singh MD Work Phone: [facility] 01-17-2024 10:38-0400 Body weight 72.12 kg Yaw Singh MD Work Phone: [facility] 01-17-2024 10:38-0400 Diastolic blood pressure 67 mm[Hg] Yaw Singh MD Work Phone: [facility] 01-17-2024 10:38-0400 Heart rate 76 /min Yaw Singh MD Work Phone: [facility] 01-17-2024 10:38-0400 Systolic blood pressure 104 mm[Hg] Yaw Singh MD Work Phone: [facility] 01-15-2024 09:09-0400 Body mass index (BMI) [Ratio] 23.48 kg/m2 Richard Jenkins DO Work Phone: [facility] 01-15-2024 09:09-0400 Body temperature 97.81 [degF] Richard Jenkins DO Work Phone: [facility] 01-15-2024 09:09-0400 Body weight 72.12 kg Richard Jenkins DO Work Phone: [facility] 01-15-2024 09:09-0400 Diastolic blood pressure 80 mm[Hg] Richard Masci DO Work Phone: [facility] 01-15-2024 09:09-0400 Heart rate 91 /min Richard Mendezi DO Work Phone: [facility] 01-15-2024 09:09-0400 SaO2% (BldA) [Mass fraction] 98 % Richard Mendezi DO Work Phone: [facility] 01-15-2024 09:09-0400 Systolic blood pressure 111 mm[Hg] Richard Mendezi DO Work Phone: [facility] 01-03-2024 11:45-0400 Diastolic blood pressure 68 mm[Hg] Yaw Singh MD Work Phone: [facility] 01-03-2024 11:45-0400 Systolic blood pressure 100 mm[Hg] Yaw Singh MD Work Phone: [facility] 01-03-2024 11:05-0400 Body height 175.3 cm Yaw Singh MD Work Phone: [facility] 01-03-2024 11:05-0400 Body mass index (BMI) [Ratio] 25.31 kg/m2 Yaw Singh MD Work Phone: [facility] 01-03-2024 11:05-0400 Body weight 77.75 kg Yaw Singh MD Work Phone: [facility] 01-03-2024 11:05-0400 Heart rate 75 /min Yaw Singh MD Work Phone: [facility] 10-09-2023 08:29-0400 Body height 177.2 cm Helen Blair MD Work Phone: [facility] 10-09-2023 08:29-0400 Body mass index (BMI) [Ratio] 28.76 kg/m2 Helen Blair MD Work Phone: [facility] 10-09-2023 08:29-0400 Body temperature 98.01 [degF] Helen Blair MD Work Phone: [facility] 10-09-2023 08:29-0400 Body weight 90.27 kg Helen Blair MD Work Phone: [facility] 10-09-2023 08:29-0400 Diastolic blood pressure 87 mm[Hg] Helen Blair MD Work Phone: [facility] 10-09-2023 08:29-0400 Heart rate 75 /min Helen Blair MD Work Phone: [facility] 10-09-2023 08:29-0400 Respiratory rate 18 /min Helen Blair MD Work Phone: [facility] 10-09-2023 08:29-0400 SaO2% (BldA) [Mass fraction] 96 % Helen Blair MD Work Phone: [facility] 10-09-2023 08:29-0400 Systolic blood pressure 133 mm[Hg] Helen Blair MD Work Phone: [facility] 10-05-2023 09:55-0400 Body mass index (BMI) [Ratio] 28.9 kg/m2 Yaw Singh MD Work Phone: [facility] 10-05-2023 09:55-0400 Body weight 90.72 kg Yaw Singh MD Work Phone: [facility] 10-05-2023 09:55-0400 Diastolic blood pressure 82 mm[Hg] Yaw Singh MD Work Phone: [facility] 10-05-2023 09:55-0400 Heart rate 80 /min Yaw Singh MD Work Phone: [facility] 10-05-2023 09:55-0400 Respiratory rate 20 /min Yaw Singh MD Work Phone: [facility] 10-05-2023 09:55-0400 Systolic blood pressure 124 mm[Hg] Yaw Singh MD Work Phone: [facility] 09-13-2023 07:11-0400 Body mass index (BMI) [Ratio] 28.04 kg/m2 Usha Mcgovern PA-C Work Phone: [facility] 09-13-2023 07:11-0400 Body temperature 97.59 [degF] Usha Mcgovern PA- C Work Phone: [facility] 09-13-2023 07:11-0400 Body weight 88 kg Usha Mcgovern PA- C Work Phone: [facility] 09-13-2023 07:11-0400 Diastolic blood pressure 76 mm[Hg] Usha Mcgovern PA-C Work Phone: [facility] 09-13-2023 07:11-0400 Heart rate 85 /min Usha Mcgovern PA- C Work Phone: [facility] 09-13-2023 07:11-0400 Respiratory rate 16 /min Usha Mcgovern PA- C Work Phone: [facility] 09-13-2023 07:11-0400 SaO2% (BldA) [Mass fraction] 99 % Usha Mcgovern PA-C Work Phone: [facility] 09-13-2023 07:11-0400 Systolic blood pressure 114 mm[Hg] Usha Mcgovern PA-C Work Phone: [facility] 08-10-2023 09:44-0400 Body mass index (BMI) [Ratio] 28.33 kg/m2 Richard Goi DO Work Phone: [facility] 08-10-2023 09:44-0400 Body temperature 99.19 [degF] Richard Masci DO Work Phone: [facility] 08-10-2023 09:44-0400 Body weight 88.91 kg Richard Masci DO Work Phone: [facility] 08-10-2023 09:44-0400 Diastolic blood pressure 80 mm[Hg] Richard Masci DO Work Phone: [facility] 08-10-2023 09:44-0400 Heart rate 71 /min Richard Masci DO Work Phone: [facility] 08-10-2023 09:44-0400 SaO2% (BldA) [Mass fraction] 97 % Richard Mendezi DO Work Phone: [facility] 08-10-2023 09:44-0400 Systolic blood pressure 136 mm[Hg] Richard Mendezi DO Work Phone: [facility] 07-12-2023 10:34-0400 Body height 177.2 cm Jesus Manuel Resendiz PA-C Work Phone: [facility] 07-12-2023 10:34-0400 Body weight 88 kg Jesus Manuel Resendiz PA-C Work Phone: [facility] 07-12-2023 10:34-0400 Diastolic blood pressure 69 mm[Hg] Jesus Manuel Resendiz PA-C Work Phone: [facility] 07-12-2023 10:34-0400 Heart rate 77 /min Jesus Manuel Resendiz PA-C Work Phone: [facility] 07-12-2023 10:34-0400 SaO2% (BldA) [Mass fraction] 100 % Jesus Manuel Resendiz PA-C Work Phone: [facility] 07-12-2023 10:34-0400 Systolic blood pressure 124 mm[Hg] Jesus Manuel Resendiz PA-C Work Phone: [facility] 06-19-2023 06:52-0400 Body temperature 97.11 [degF] Usha Mcgovern PA- C Work Phone: [facility] 06-19-2023 06:52-0400 Body weight 88 kg Usha Mcgovern PA- C Work Phone: [facility] 06-19-2023 06:52-0400 Diastolic blood pressure 82 mm[Hg] Usha Mcgovern PA-C Work Phone: [facility] 06-19-2023 06:52-0400 Heart rate 70 /min Usha Mcgovern PA- C Work Phone: [facility] 06-19-2023 06:52-0400 Respiratory rate 18 /min Usha Mcgovern PA- C Work Phone: [facility] 06-19-2023 06:52-0400 Systolic blood pressure 122 mm[Hg] Usha Mcgovern PA-C Work Phone: [facility] 06-05-2023 14:51-0500 Diastolic blood pressure 85 mm[Hg] Amos Rangel MD Work Phone: [facility] 06-05-2023 14:51-0500 Heart rate 72 /min Amos Rangel MD Work Phone: [facility] 06-05-2023 14:51-0500 Respiratory rate 26 /min Amos Rangel MD Work Phone: [facility] 06-05-2023 14:51-0500 SaO2% (BldA) [Mass fraction] 95 % Amos Rangel MD Work Phone: [facility] 06-05-2023 14:51-0500 Systolic blood pressure 132 mm[Hg] Amos Rangel MD Work Phone: [facility] 06-05-2023 14:32-0500 Body temperature 97.9 [degF] Amos Rangel MD Work Phone: [facility] 06-05-2023 12:25-0500 Body height 175.3 cm Amos Rangel MD Work Phone: [facility] 06-05-2023 12:25-0500 Body weight 87.54 kg Amos Rangel MD Work Phone: [facility] 02-27-2023 14:48-0500 Body temperature 97.11 [degF] Olvera 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 Work Phone: [facility] 02-27-2023 14:48-0500 Body weight 88.36 kg Olvera 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 Work Phone: [facility] 02-27-2023 14:48-0500 Diastolic blood pressure 84 mm[Hg] Olvera 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 Work Phone: [facility] 02-27-2023 14:48-0500 Heart rate 67 /min Olvera 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 Work Phone: [facility] 02-27-2023 14:48-0500 Respiratory rate 16 /min Olvera [employer]RO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 Work Phone: [facility] 02-27-2023 14:48-0500 SaO2% (BldA) [Mass fraction] 98 % Olvera 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 Work Phone: [facility] 02-27-2023 14:48-0500 Systolic blood pressure 152 mm[Hg] Olvera 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 Work Phone: [facility] 08-22-2022 08:08-0400 Body temperature 97.9 [degF] Richard Masci DO Work Phone: [facility] 08-22-2022 08:08-0400 Body weight 85.28 kg Richard Masci DO Work Phone: [facility] 08-22-2022 08:08-0400 Diastolic blood pressure 80 mm[Hg] Richard Masci DO Work Phone: [facility] 08-22-2022 08:08-0400 Heart rate 70 /min Richard Masci DO Work Phone: [facility] 08-22-2022 08:08-0400 SaO2% (BldA) [Mass fraction] 99 % Richard Masci DO Work Phone: [facility] 08-22-2022 08:08-0400 Systolic blood pressure 135 mm[Hg] Richard Masci DO Work Phone: [facility] 08-09-2022 12:35-0400 Body temperature 97.81 [degF] Usha Troncoso Work Phone: [facility] 08-09-2022 12:35-0400 Body weight 87.09 kg Usha Troncoso Work Phone: [facility] 08-09-2022 12:35-0400 Diastolic blood pressure 78 mm[Hg] Usha Mcgovern PA-C Work Phone: [facility] 08-09-2022 12:35-0400 Heart rate 72 /min Usha Mcgovern PA- C Work Phone: [facility] 08-09-2022 12:35-0400 Respiratory rate 16 /min Usha Mcgovern PA- C Work Phone: [facility] 08-09-2022 12:35-0400 Systolic blood pressure 122 mm[Hg] Usha Mcgovern PA-C Work Phone: [facility] 08-02-2022 13:42-0400 Body height 177 cm Season Gilbert DIANA.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 Work Phone: [facility] 08-02-2022 13:42-0400 Body temperature 98.2 [degF] Season Gilbert DIANA.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 Work Phone: [facility] 08-02-2022 13:42-0400 Body weight 84.5 kg Season Gilbert DIANA.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 Work Phone: [facility] 08-02-2022 13:42-0400 Diastolic blood pressure 80 mm[Hg] Season Gilbert DIANA.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 Work Phone: [facility] 08-02-2022 13:42-0400 Heart rate 57 /min Season Gilbert DIANA.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 Work Phone: [facility] 08-02-2022 13:42-0400 SaO2% (BldA) [Mass fraction] 95 % Season Gilbert DIANA.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 Work Phone: [facility] 08-02-2022 13:42-0400 Systolic blood pressure 138 mm[Hg] Season Gilbert DIANA.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 Work Phone: [facility] 08-02-2022 12:30-0400 Diastolic blood pressure 79 mm[Hg] Francesca Vazquez MD Work Phone: [facility] 08-02-2022 12:30-0400 Heart rate 65 /min Francesca Vazquez MD Work Phone: [facility] 08-02-2022 12:30-0400 Respiratory rate 16 /min Francesca Vazquez MD Work Phone: [facility] 08-02-2022 12:30-0400 SaO2% (BldA) [Mass fraction] 96 % Francesca Vazquez MD Work Phone: [facility] 08-02-2022 12:30-0400 Systolic blood pressure 120 mm[Hg] Francesca Vazquez MD Work Phone: [facility] 08-02-2022 12:03-0400 Body temperature 97.3 [degF] Francesca Vazquez MD Work Phone: [facility] 06-23-2022 18:06-0400 Heart rate 73 /min Dr. Yaw Singh Work Phone: [facility] 06-23-2022 18:06-0400 Respiratory rate 18 /min Dr. Yaw Singh Work Phone: [facility] 06-23-2022 18:06-0400 SaO2% (BldA) [Mass fraction] 93 % Dr. Yaw Singh Work Phone: [facility] 06-23-2022 14:56-0400 Body height 177.[address] Yaw Singh Work Phone: [facility] 06-23-2022 14:56-0400 Body mass index (BMI) [Ratio] 23.4 kg/m2 Dr. Yaw Singh Work Phone: [facility] 06-23-2022 14:56-0400 Body temperature 97.8 [degF] Dr. Yaw Singh Work Phone: [facility] 06-23-2022 14:56-0400 Body weight 74.[address] Yaw Singh Work Phone: [facility] 06-23-2022 14:56-0400 Diastolic blood pressure 71 mm[Hg] Dr. Yaw Singh Work Phone: [facility] 06-23-2022 14:56-0400 Systolic blood pressure 124 mm[Hg] Dr. Yaw Singh Work Phone: [facility] 06-09-2022 14:46-0500 Body temperature 96.8 [degF] [facility] 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 Work Phone: [facility] 06-09-2022 14:46-0500 Body weight 90.72 kg Yaw Matsonchuck [employer]ILROAD CON[employer]CTOR.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 Work Phone: [facility] 06-09-2022 14:46-0500 Diastolic blood pressure 80 mm[Hg] [facility] [employer].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 Work Phone: [facility] 06-09-2022 14:46-0500 Heart rate 70 /min Yaw Matsonchuck [employer]ILROAD CONDUCTOR.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 Work Phone: [facility] 06-09-2022 14:46-0500 Respiratory rate 18 /min [facility] 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 Work Phone: [facility] 06-09-2022 14:46-0500 SaO2% (BldA) [Mass fraction] 96 % [facility] 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 Work Phone: [facility] 06-09-2022 14:46-0500 Systolic blood pressure 120 mm[Hg] [facility] [employer]RO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 Work Phone: [facility] 05-15-2022 08:33-0500 Body mass index (BMI) [Ratio] 27.6 kg/m2 Dr. Yaw Singh Work Phone: [facility] 05-15-2022 08:33-0500 Body weight 87.[address] Yaw Singh Work Phone: [facility] 05-15-2022 08:33-0500 Diastolic blood pressure 95 mm[Hg] Dr. Yaw Singh Work Phone: [facility] 05-15-2022 08:33-0500 Heart rate 63 /min Dr. Yaw Singh Work Phone: [facility] 05-15-2022 08:33-0500 Respiratory rate 18 /min Dr. Yaw Singh Work Phone: [facility] 05-15-2022 08:33-0500 SaO2% (BldA) [Mass fraction] 97 % Dr. Yaw Singh Work Phone: [facility] 05-15-2022 08:33-0500 Systolic blood pressure 149 mm[Hg] Dr. Yaw Singh Work Phone: [facility] 03-17-2022 13:33-0500 Body temperature 97.81 [degF] Dana Callow [employer]ILRO[employer]DUCTOR[employer]CN P Work Phone: [facility] 03-17-2022 13:33-0500 Body weight 88 kg Dana Callow [employer]RO[employer] Work Phone: [facility] 03-17-2022 13:33-0500 Diastolic blood pressure 74 mm[Hg] Dana Callow [employer]ILRO[employer] CONDUCTOR.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 Work Phone: [facility] 03-17-2022 13:33-0500 Heart rate 63 /min Dana Callow [employer]RO[employer] CON[employer].CN P Work Phone: [facility] 03-17-2022 13:33-0500 Respiratory rate 16 /min Dana Callow [employer]ILRO[employer] CONDUCTOR.CN P Work Phone: [facility] 03-17-2022 13:33-0500 SaO2% (BldA) [Mass fraction] 98 % Dana Callow [employer]ILROAD CONDUCTOR.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 Work Phone: [facility] 03-17-2022 13:33-0500 Systolic blood pressure 126 mm[Hg] Dana Callow [employer]ILROAD CONDUCTOR.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 Work Phone: [facility] 02-22-2022 08:26-0500 Diastolic blood pressure 84 mm[Hg] Mari Akhtar [employer]ILRO[employer] CONDUCTOR.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 Work Phone: [facility] 02-22-2022 08:26-0500 Heart rate 63 /min Mari Akhtar [employer]ILRO[employer] CONDUCTOR.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 Work Phone: [facility] 02-22-2022 08:26-0500 Systolic blood pressure 120 mm[Hg] Mari Akhtar [employer]ILRO[employer] CONDUCTOR.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 Work Phone: [facility] 02-22-2022 07:59-0500 Body temperature 97.9 [degF] Mari Akhtar [employer]ILRO[employer] CONDUCTOR.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 Work Phone: [facility] 02-22-2022 07:59-0500 Body weight 85.5 kg Mari Solorzanoenter [employer]ILROAD CONDUCTOR.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 Work Phone: [facility] 02-22-2022 07:59-0500 SaO2% (BldA) [Mass fraction] 99 % Wales Akhtar [employer]ILROAD CONDUCTOR.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 Work Phone: [facility] 02-09-2022 12:05-0400 Body height 174 cm Yaw Singh MD Work Phone: [facility] 02-09-2022 12:05-0400 Body weight 83.01 kg Yaw Singh MD Work Phone: [facility] 02-09-2022 12:05-0400 Diastolic blood pressure 78 mm[Hg] Yaw Singh MD Work Phone: [facility] 02-09-2022 12:05-0400 Heart rate 72 /min Yaw Singh MD Work Phone: [facility] 02-09-2022 12:05-0400 Respiratory rate 16 /min Yaw Singh MD Work Phone: [facility] 02-09-2022 12:05-0400 Systolic blood pressure 122 mm[Hg] Yaw Singh MD Work Phone: [facility] 12-01-2021 09:33-0400 Body temperature 98.8 [degF] Wales Akhtar [employer]ILRO[employer] CON[employer]CTOR.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 Work Phone: [facility] 12-01-2021 09:33-0400 Body weight 83.92 kg Mari Akhtar [employer]ILROAD CONDUCTOR.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 Work Phone: [facility] 12-01-2021 09:33-0400 Diastolic blood pressure 90 mm[Hg] Mari Akhtar [employer]ILRO[employer] CONDUCTOR.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 Work Phone: [facility] 12-01-2021 09:33-0400 Heart rate 72 /min Wales Akhtar [employer]ILRO[employer] CONDUCTOR.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 Work Phone: [facility] 12-01-2021 09:33-0400 Systolic blood pressure 126 mm[Hg] Mari Akhtar [employer]ILROAD CONDUCTOR.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 Work Phone: [facility] 11-09-2021 12:59-0400 Body height 177.8 cm Season Copan [employer]ILROAD CONDUCTOR.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 Work Phone: [facility] 11-09-2021 12:59-0400 Body temperature 97.7 [degF] Season Copan [employer]ILROAD CONDUCTOR.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 Work Phone: [facility] 11-09-2021 12:59-0400 Body weight 83.46 kg Season Copan [employer]ILROAD CONDUCTOR.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 Work Phone: [facility] 11-09-2021 12:59-0400 Diastolic blood pressure 82 mm[Hg] Season Copan [employer]ILROAD CONDUCTOR.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 Work Phone: [facility] 11-09-2021 12:59-0400 Heart rate 60 /min Season Copan [employer]RO[employer] CONDUCTOR.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 Work Phone: [facility] 11-09-2021 12:59-0400 Respiratory rate 16 /min Season Rosibel [employer]ILROAD CONDUCTOR.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 Work Phone: [facility] 11-09-2021 12:59-0400 SaO2% (BldA) [Mass fraction] 99 % Season Rosibel [employer]ILROAD CONDUCTOR.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 Work Phone: [facility] 11-09-2021 12:59-0400 Systolic blood pressure 135 mm[Hg] Season Copan [employer]ILROAD CONDUCTOR.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 Work Phone: [facility] 11-09-2021 12:30-0400 Diastolic blood pressure 82 mm[Hg] Francesca Vazquez MD Work Phone: [facility] 11-09-2021 12:30-0400 Heart rate 63 /min Francesca Vazquez MD Work Phone: [facility] 11-09-2021 12:30-0400 Respiratory rate 16 /min Francesca Vazquez MD Work Phone: [facility] 11-09-2021 12:30-0400 SaO2% (BldA) [Mass fraction] 98 % Francesca Vazquez MD Work Phone: [facility] 11-09-2021 12:30-0400 Systolic blood pressure 130 mm[Hg] Francesca Vazquez MD Work Phone: [facility] 11-09-2021 12:06-0400 Body temperature 97.3 [degF] Francesca Vazquez MD Work Phone: [facility] 11-09-2021 11:36-0400 Body height 177.8 cm Francesca Vazquez MD Work Phone: [facility] 11-09-2021 11:36-0400 Body weight 83.92 kg Francesca Vazquez MD Work Phone: [facility] 11-02-2021 10:35-0400 Body temperature 98.29 [degF] Richard Masci DO Work Phone: [facility] 11-02-2021 10:35-0400 Body weight 84.14 kg Richard Masci DO Work Phone: [facility] 11-02-2021 10:35-0400 Diastolic blood pressure 86 mm[Hg] Richard Masci DO Work Phone: [facility] 11-02-2021 10:35-0400 Heart rate 71 /min Richard Masci DO Work Phone: [facility] 11-02-2021 10:35-0400 SaO2% (BldA) [Mass fraction] 96 % Richard Masci DO Work Phone: [facility] 11-02-2021 10:35-0400 Systolic blood pressure 130 mm[Hg] Richard Masci DO Work Phone: [facility] 10-20-2021 13:35-0400 Body temperature 98.2 [degF] Treatment Wstr Work Phone: [facility] 10-20-2021 13:35-0400 Body weight 83.23 kg Treatment Wstr Work Phone: [facility] 10-20-2021 13:35-0400 Diastolic blood pressure 80 mm[Hg] Treatment [facility]str Work Phone: [facility] 10-20-2021 13:35-0400 Heart rate 105 /min Treatment [facility]str Work Phone: [facility] 10-20-2021 13:35-0400 Systolic blood pressure 126 mm[Hg] Treatment Wstr Work Phone: [facility] 10-05-2021 09:35-0400 Body height 175.3 cm Richard Masci DO Work Phone: [facility] 10-05-2021 09:35-0400 Body temperature 98.01 [degF] Richard Masci DO Work Phone: [facility] 10-05-2021 09:35-0400 Body weight 82.78 kg Richard Masci DO Work Phone: [facility] 10-05-2021 09:35-0400 Diastolic blood pressure 68 mm[Hg] Richard Masci DO Work Phone: [facility] 10-05-2021 09:35-0400 Heart rate 66 /min Richard Masci DO Work Phone: [facility] 10-05-2021 09:35-0400 SaO2% (BldA) [Mass fraction] 98 % Richard Masci DO Work Phone: [facility] 10-05-2021 09:35-0400 Systolic blood pressure 132 mm[Hg] Richard Masci DO Work Phone: [facility] 09-08-2021 14:01-0400 Body temperature 97.59 [degF] Treatment [facility]str Work Phone: [facility] 09-08-2021 14:01-0400 Body weight 81.19 kg Treatment [facility]str Work Phone: [facility] 09-08-2021 14:01-0400 Diastolic blood pressure 70 mm[Hg] Treatment [facility]str Work Phone: [facility] 09-08-2021 14:01-0400 Heart rate 66 /min Treatment [facility]str Work Phone: [facility] 09-08-2021 14:01-0400 Systolic blood pressure 109 mm[Hg] Treatment Wstr Work Phone: [facility] 09-07-2021 14:03-0400 Body height 170.2 cm Season Copan [employer]RO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 Work Phone: [facility] 09-07-2021 14:03-0400 Body temperature 98.1 [degF] Season Copan [employer]ILROAD CON[employer]CTOR.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 Work Phone: [facility] 09-07-2021 14:03-0400 Body weight 79.29 kg Season Copan [employer]ILROAD CONDUCTOR.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 Work Phone: [facility] 09-07-2021 14:03-0400 Diastolic blood pressure 74 mm[Hg] Season Rosibel [employer]ILROAD CONDUCTOR.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 Work Phone: [facility] 09-07-2021 14:03-0400 Heart rate 56 /min Season Copan [employer]ILROAD CONDUCTOR.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 Work Phone: [facility] 09-07-2021 14:03-0400 SaO2% (BldA) [Mass fraction] 98 % Season Copan [employer]ILROAD CONDUCTOR.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 Work Phone: [facility] 09-07-2021 14:03-0400 Systolic blood pressure 136 mm[Hg] Season Copan [employer]ILROAD CON[employer]CTOR.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 Work Phone: [facility] 09-07-2021 13:35-0400 Diastolic blood pressure 81 mm[Hg] Francesca Vazquez MD Work Phone: [facility] 09-07-2021 13:35-0400 Heart rate 67 /min Francesca Vazquez MD Work Phone: [facility] 09-07-2021 13:35-0400 Respiratory rate 16 /min Francesca Vazquez MD Work Phone: [facility] 09-07-2021 13:35-0400 SaO2% (BldA) [Mass fraction] 97 % Francesca Vazquez MD Work Phone: [facility] 09-07-2021 13:35-0400 Systolic blood pressure 137 mm[Hg] Francesca Vazquez MD Work Phone: [facility] 09-07-2021 13:10-0400 Body temperature 97.7 [degF] Francesca Vazquez MD Work Phone: [facility] 09-07-2021 11:22-0400 Body height 177.8 cm Francesca Vazquez MD Work Phone: [facility] 09-07-2021 11:22-0400 Body weight 81.65 kg Francesca Vazquez MD Work Phone: [facility] 08-25-2021 15:16-0400 Body temperature 97.11 [degF] Treatment Wstr Work Phone: [facility] 08-25-2021 15:16-0400 Diastolic blood pressure 78 mm[Hg] Treatment Wstr Work Phone: [facility] 08-25-2021 15:16-0400 Heart rate 89 /min Treatment Wstr Work Phone: [facility] 08-25-2021 15:16-0400 SaO2% (BldA) [Mass fraction] 99 % Treatment Wstr Work Phone: [facility] 08-25-2021 15:16-0400 Systolic blood pressure 136 mm[Hg] Treatment Wstr Work Phone: [facility] 08-24-2021 08:04-0400 Body temperature 98.01 [degF] Mari Akhtar APRN.CNP Work Phone: [facility] 08-24-2021 08:04-0400 Body weight 81.87 kg Mari Akhtar RAILROAD CONDUCTOR.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 Work Phone: [facility] 08-24-2021 08:04-0400 Diastolic blood pressure 73 mm[Hg] Mari Akhtar RAILROAD CONDUCTOR.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 Work Phone: [facility] 08-24-2021 08:04-0400 Heart rate 71 /min Mari Akhtar RAILROAD CONDUCTOR.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 Work Phone: [facility] 08-24-2021 08:04-0400 Systolic blood pressure 128 mm[Hg] Mari Solorzanoenter RAILROAD CONDUCTOR.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 Work Phone: [facility] 08-11-2021 14:44-0400 Body temperature 97.7 [degF] Treatment Wstr Work Phone: [facility] 08-11-2021 14:44-0400 Diastolic blood pressure 84 mm[Hg] Treatment Wstr Work Phone: [facility] 08-11-2021 14:44-0400 Heart rate 64 /min Treatment Wstr Work Phone: [facility] 08-11-2021 14:44-0400 Systolic blood pressure 121 mm[Hg] Treatment Wstr Work Phone: [facility] 07-28-2021 15:01-0400 Body temperature 97.5 [degF] Treatment Wstr Work Phone: [facility] 07-28-2021 15:01-0400 Diastolic blood pressure 82 mm[Hg] Treatment Wstr Work Phone: [facility] 07-28-2021 15:01-0400 Heart rate 78 /min Treatment Wstr Work Phone: [facility] 07-28-2021 15:01-0400 Systolic blood pressure 135 mm[Hg] Treatment Wstr Work Phone: [facility] 07-27-2021 08:12-0400 Body temperature 98.2 [degF] Richard Jeknins DO Work Phone: [facility] 07-27-2021 08:12-0400 Body weight 82.78 kg Richard Jenkins DO Work Phone: [facility] 07-27-2021 08:12-0400 Diastolic blood pressure 85 mm[Hg] Richard Jenkins DO Work Phone: [facility] 07-27-2021 08:12-0400 Heart rate 80 /min Richard Jenkins DO Work Phone: [facility] 07-27-2021 08:12-0400 Systolic blood pressure 126 mm[Hg] Richard Jenkins DO Work Phone: [facility] 03-04-2019 12:30-0500 Body Temperature 97.81 [degF] Tyshawn Carocristóbal [place], [place] 03-04-2019 12:30-0500 BP Diastolic 73 mm[Hg] [place] 03-04-2019 12:30-0500 BP Systolic 112 mm[Hg] [place] 03-04-2019 12:30-0500 Pulse (Heart Rate) 67 /min [facility] [place] 03-04-2019 12:30-0500 Pulse Oximetry 96 % [place], [place] 03-04-2019 12:30-0500 Respiratory Rate 16 /min [place] 03-04-2019 06:04-0500 BMI (Body Mass Index) 37.49 kg/m2 [place] 03-04-2019 06:04-0500 Body weight 115.17 kg [place], [place] 03-03-2019 05:38-0500 Height 175.3 cm [place], [place] Encounters Encounter Date Encounter Type Care Provider Facility Start: 03-04-2025 ambulatory Nikita Jackson Facility:[facility] Start: 02-17-2025 End: 02-17-2025 ambulatory YAW SINGH Facility:[facility] Start: 02-04-2025 End: 02-04-2025 ambulatory Yaw Singh [place] [place] Start: 01-30-2025 End: 01-30-2025 Emergency department patient visit F[place] Facility:[facility] Start: 01-23-2025 ambulatory Yaw Singh Facility :[facility] Start: 01-22-2025 ambulatory Nikita Jackson [facility] Start: 01-22-2025 End: 01-22-2025 ambulatory Yaw Singh Facility:[facility] Start: 01-05-2025 End: 01-05-2025 ambulatory YAW SINGH Facility:[facility] Start: 12-24-2024 End: 12-24-2024 Patient encounter procedure Bobby Pratibha TAYLOR Work Phone: [facility] Comment on above: Chronic sinusitis, u nspecified location (Primary Dx); Seasonal allergic rhinitis, unspecified trigger Start: 12-24-2024 End: 12-24-2024 ambulatory YAW SINGH Facility:[facility] Start: 12-22-2024 End: 12-22-2024 Refill Yaw Singh MD Work Phone: [facility] Comment on above: Refill Request Start: 12-18-2024 End: 12-24-2024 Telephone encounter Richard Jenkins DO Work Phone: Hematology/Oncology Comment on above: Appointment Start: 12-03-2024 End: 12-03-[address] Yaw Singh MD Work Phone: -MRI - WC Start: 12-03-2024 End: 12-03-2024 Patient encounter procedure Connie Ibarra PA -MRI - WC Work Phone: Start: 12-03-2024 End: 12-03-2024 ambulatory Connie Ibarra Facility:[facility] Start: 11-26-2024 End: 11-26-[address] Yaw Singh MD Work Phone: -Outpatient Bone Densitometry Start: 11-26-2024 End: 11-26-2024 Patient encounter procedure Connie Ibarra PA -Outpatient Bone Densitometry Work Phone: Start: 11-26-2024 End: 11-26-2024 ambulatory Connie Ibarra Facility:[facility] Start: 11-14-2024 End: 11-14-[address] Haroldo Noland MD -[facility] Start: 11-14-2024 End: 11-14-[address] 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); Compression fx, lumbar spine, closed, initial encounter (HCC); Collapsed vertebra, not elsewhere classified, lumbar region, initial encounter for fracture (HCC) Start: 11-05-2024 End: 11-05-2024 ambulatory Edith West MA [facility] Start: 11-05-2024 End: 11-05-2024 Patient encounter procedure Edith West MA [facility] [place] Comment on above: Population Health Na vigation Outreach ([facility] ) Start: 10-31-2024 [facility] Start: 10-31-2024 End: 10-31-2024 Subsequent hospital visit by physician [facility] (I-Stat) Work Phone: Cat Scan Comment on above: 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 Nikita nicholas MD -[facility] Start: 10-15-2024 End: 10-15-2024 Admission to same day surgery center Dr. Nikita Jackson MD -[facility] Work Phone: Start: 10-15-2024 End: 10-15-[address] Yaw Singh MD Work Phone: -[facility] Start: 10-08-2024 End: 10-14-2024 Follow-up encounter Usha Mcgovern PA-C Work Phone: [facility] [place] Comment on above: Results Start: 10-07-2024 End: 10-07-2024 Subsequent hospital visit by physician Xr [facility] [place] Work Phone: Radiology Comment on above: Lumbar back pain [M5 4.50] Start: 10-07-2024 End: 10-07-2024 Office outpatient visit 25 minutes Usha Mcgovern PA-C Work Phone: [facility] [place] Comment on above: Essential hypertensi on, benign (Primary Dx); Mixed hyperlipidemia; Coronary artery disease involving s[place]qualmie coronary artery of snoqualmie heart without angina pectoris; Esophageal adenocarcinoma (HCC); Malignant 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); CKD (chronic kidney disease) stage 4, GFR 15-29 ml/min (HCC); 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; Benign prostatic hyperplasia, unspecified whether lower urinary tract symptoms present; Acute bilateral low back pain without sciatica; Compression fracture of lumbar vertebra with routine healing, unspecified lumbar vertebral level, subsequent encounter; Lumbar back pain; Closed wedge compression fracture of T10 vertebra with routine healing, subsequent encounter; S/P TAVR (transcatheter aortic valve replacement); Uncomplicated asthma, unspecified asthma severity, unspecified whether persistent (HCC); Iron malabsorption (HCC) Start: 10-07-2024 End: 10-07-2024 ambulatory YAW SINGH Facility:[facility] Start: 09-26-2024 End: 09-26-2024 Telephone encounter Yaw Singh MD Work Phone: [facility] [place] Comment on above: Orders Start: 09-22-2024 End: 09-22-2024 Patient encounter procedure Yaw Singh MD Work Phone: [facility] [place] Comment on above: History of cerebral infarction (Primary Dx); Gynecomastia Start: 09-22-2024 End: 09-22-2024 ambulatory YAW SINGH Facility:[facility] Start: 09-18-2024 End: 09-18-2024 Chart abstracting Yaw Singh MD Work Phone: [facility] [place] Comment on above: ER Discharge Summary Start: 09-17-2024 End: 09-17-2024 Emergency department patient visit Dr. Yaw Singh MD Work Phone: -Emergency Department Work Phone: Start: 09-12-2024 End: 09-12-2024 Office outpatient visit 25 minutes Yaw Smith APRN.CNP Work Phone: [facility] Comment on above: Skin tear of left fo rearm without complication, initial encounter (Primary Dx) Start: 09-12-2024 End: 09-12-2024 ambulatory YAW SINGH Facility:[facility] Start: 09-09-2024 End: 09-09-2024 Follow-up encounter Stacia Adame MD Work Phone: [facility] [place] Comment on above: Results (MRI without contrast) Start: 09-09-2024 End: 09-09-2024 Refill Richard Jenkins DO Work Phone: Hematology/Oncology Comment on above: Refill Request Start: 09-08-2024 End: 09-08-2024 Refill Yaw Singh MD Work Phone: [facility] [place] Comment on above: Refill Request Hyperprolactinemia ( HCC) [E22.1] Start: 09-04-2024 End: 09-05-2024 Follow-up encounter Yaw Singh MD Work Phone: [facility] [place] Start: 09-02-2024 End: 09-02-2024 Patient encounter procedure Maggie SOSA -[facility] Work Phone: Start: 09-02-2024 End: 09-02-2024 Refill Richard Jenkins DO Work Phone: Hematology/Oncology Comment on above: Refill Request Start: 08-27-2024 ambulatory YAW Joshii ty:[facility] Start: 08-20-2024 End: 08-20-2024 Subsequent hospital visit by physician Xr [facility] [place] Work Phone: Radiology Comment on above: Acute bilateral low back pain without sciatica [M54.50] Start: 08-20-2024 End: 08-20-2024 Office outpatient visit 25 minutes Steve Youssef PA-C Work Phone: [facility] Comment on above: Acute bilateral low back pain without sciatica (Primary Dx) Start: 08-20-2024 End: 08-20-2024 ambulatory STEVE YOUSSEF Facility:[facility] Start: 08-19-2024 End: 08-19-2024 ambulatory Josue Oquendo RN [employer] Comment on above: Bi-Weekly Outreach ( Recurring) for Chronic Disease Management Start: 08-11-2024 End: 08-11-2024 Refill Richard Mendezi DO Work Phone: Hematology/Oncology Comment on above: Refill Request Start: 08-05-2024 End: 08-05-2024 Patient encounter procedure Marcela SOSA Work Phone: [facility] Comment on above: Dog scratch (Primary Dx); Visit for wound check Start: 08-05-2024 End: 08-05-2024 ambulatory Josue Oquendo RN [employer] Comment on above: Bi-Weekly Outreach ( Recurring) for Chronic Disease Management Start: 08-01-2024 End: 09-01-2024 ambulatory Josue Oquendo RN [employer] Comment on above: Bi-Weekly Outreach ( Recurring) for Chronic Disease Management Start: 07-29-2024 End: 07-29-2024 Chart abstracting Alberta Candelaria MA [facility] [place] Comment on above: Consult (General Winifred jewell - F/U AVF ) Start: 07-22-2024 End: 07-22-2024 Patient encounter procedure Maggie SOSA -[facility] Work Phone: Start: 07-22-2024 End: 07-22-2024 ambulatory Yaw Singh [place] [place] Start: 07-21-2024 Encounter for other preprocedural examination Nikita [facility] Start: 07-16-2024 ambulatory Yaw Singh [place] [place] Start: 07-11-2024 End: 07-11-2024 Follow-up encounter Stacia Adame MD Work Phone: [facility] Start: 07-11-2024 End: 09-08-2024 Telephone encounter Stacia Adame MD Work Phone: [facility] Comment on above: Results Start: 07-10-2024 End: 07-10-2024 Refill Richard Jenkins DO Work Phone: Hematology/Oncology Comment on above: Refill Request Start: 07-04-2024 End: 07-04-2024 Chart abstracting Alberta Candelaria MA [facility] Comment on above: Consult (Outside con sults /) Start: 06-30-2024 End: 06-30-2024 ambulatory YAW SINGH Facility:[facility] Start: 06-30-2024 End: 06-30-2024 Patient encounter procedure Yaw Singh MD Work Phone: 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 Nikita nicholas MD -[facility] Start: 06-30-2024 End: 06-30-2024 Admission to same day surgery center Dr. Nikita Jackson MD -[facility] Start: 06-30-2024 End: 06-30-[address] Yaw Singh MD Work Phone: [facility] Work Phone: Start: 06-20-2024 End: 06-20-2024 Telephone encounter Hill HARRISON Work Phone: Trans[facility] Center Comment on above: Follow Up (Psychosoc ial Eval) Start: 06-19-2024 Encounter for other preprocedural examination Nikita Jackson [facility] Start: 06-11-2024 Encounter for other preprocedural examination YAW SINGH [facility] Start: 06-11-2024 End: 06-11-2024 ambulatory [facility] Facility:[facility] Start: 06-11-2024 End: 06-11-2024 Preprocedural examination done Grabiel Ruff MD Work Phone: [facility] Start: 06-11-2024 End: 06-11-2024 [facility] Start: 06-11-2024 End: 06-11-[address] Work Phone: Nutrition Therapy Start: 06-11-2024 End: 06-11-[address]ente Addison RD Work Phone: Nutrition Therapy Comment on above: Patient Education Start: 06-11-2024 End: 06-11-2024 Patient encounter procedure Pre Tx Group Education Work Phone: Transplant Center Comment on above: Pre-transplant evalu ation for end stage renal disease (Primary Dx) Pre-transplant evalu ation for kidney transplant (Primary Dx) Pre-transplant evalu ation for kidney transplant (Primary Dx); Renal failure, unspecified chronicity; Preoperative examination; Special screening for malignant neoplasm of prostate; Encounter for screening for human immunodeficiency virus (HIV); Other complications of anesthesia, initial encounter Pre-transplant evalu ation for kidney transplant (Primary Dx); ESRD on dialysis (HCC); Hypertension, unspecified type; S/P CABG x 4; S/P TAVR (transcatheter aortic valve replacement); Esophageal adenocarcinoma (HCC); Benign prostatic hyperplasia, unspecified whether lower urinary tract symptoms present Start: 06-11-2024 End: 06-11-2024 Patient encounter status Kidney Txp Coordinators Work Phone: [facility] Start: 06-11-2024 End: 06-11-2024 [facility] Start: 06-11-2024 Encounter for other preprocedural examination YAW SINGH [facility] Start: 06-09-2024 End: 06-09-2024 Chart abstracting Alberta Candelaria MA [facility] Comment on above: Results (Outside lab s /) Start: 06-06-2024 End: 06-06-2024 Chart abstracting Yaw Singh MD Work Phone: [facility] Comment on above: Outside Egva-Jox-TJK Ordered Pre-transplant evalu ation for kidney transplant (Primary Dx) Start: 06-06-2024 End: 06-06-2024 Patient encounter status Maulik Aranda MD Work Phone: [facility] Start: 06-06-2024 End: 06-06-2024 Telephone encounter Nisha Schultz RN [facility] Comment on above: Referral - Kidney Tx p Start: 06-06-2024 End: 06-06-[address] Yaw Singh MD Work Phone: [facility] Work Phone: Start: 06-06-2024 End: 06-06-[address] Nikita Jackson MD -Laboratory Work Phone: Start: 06-06-2024 End: 06-06-2024 ambulatory Nikita Jackson Facility:[facility] Start: 05-27-2024 End: 05-27-2024 Patient encounter status Kidney Txp Coordinators Work Phone: [facility] Start: 05-27-2024 End: 05-27-2024 Telephone encounter Kidney Txp Coordinators Work Phone: [facility] Center Comment on above: Referral - Kidney Tx p Start: 05-07-2024 End: 05-07-2024 Subsequent hospital visit by physician Mri [facility] Wstr (I-Stat/1.5t) Work Phone: Radiology Comment on above: 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] Start: 05-07-2024 End: 05-08-2024 Telephone encounter Richard Jenkins DO Work Phone: Hematology/Oncology Comment on above: Results Start: 05-07-2024 End: 05-07-2024 ambulatory YAW SINGH Facility:[facility] Start: 05-07-2024 End: 05-07-2024 Patient encounter procedure Edwin Mnotes APRN.CNP Work Phone: [facility] Comment on above: Secondary infection of skin (Primary Dx); Dog scratch; Need for tetanus booster Start: 05-02-2024 End: 05-02-2024 ambulatory Richard Jenkins DO Work Phone: Hematology/Oncology Comment on above: 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); Closed wedge compression fracture of T10 vertebra with delayed healing, subsequent encounter Start: 05-02-2024 End: 05-02-2024 Patient encounter procedure Richard Jenkins DO Work Phone: Hematology/Oncology Start: 04-30-2024 End: 04-30-2024 Chart abstracting Yaw Singh MD Work Phone: [facility] [place] Comment on above: Outside Cardiology Start: 04-29-2024 End: 04-29-2024 Patient encounter procedure Vern SOSA -[facility] Work Phone: Start: 04-29-2024 End: 04-29-2024 ambulatory Yaw Singh [place] [place] Start: 04-28-2024 End: 04-28-[address] Nikita Jackson MD -[facility] Work Phone: Start: 04-28-2024 End: 04-28-2024 ambulatory Gaudencio Greenberg [place] [place] Start: 04-25-2024 End: 04-25-2024 Chart abstracting Yaw Singh MD Work Phone: [facility] Comment on above: Outside Imaging Start: 04-24-2024 ambulatory Yaw Samantha [place] [place] Start: 04-24-2024 Non-patient / Non-visit Dr. Nikita nicholas MD -[facility] Start: 04-24-2024 End: 04-24-[address] Gaudencio Greenberg MD -Cardiovascular Services Work Phone: Start: 04-24-2024 End: 04-24-2024 [facility] Facility:[facility] Start: 04-19-2024 End: 04-21-2024 Telephone encounter Yaw Singh MD Work Phone: [facility] Comment on above: Results Start: 04-17-2024 End: 04-17-2024 Refill Richard Jenkins DO Work Phone: Hematology/Oncology Comment on above: 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] Start: 03-11-2024 End: 03-11-2024 ambulatory YAW SINGH Facility:[facility] Start: 03-11-2024 End: 03-11-2024 Patient encounter procedure Yaw Singh MD Work Phone: [facility] Comment on above: Medicare annual well ness visit, subsequent (Primary Dx); Essential hypertension, benign; Mixed hyperlipidemia; Coronary artery disease involving snoqualmie coronary artery of snoqualmie heart without angina pectoris; Aortic valve stenosis, etiology of cardiac valve disease unspecified; Ascending aorta dilation (HCC); Uncomplicated asthma, unspecified asthma severity, unspecified whether persistent; CKD (chronic kidney disease) stage 4, GFR 15-29 ml/min (HCC); Gastroesophageal reflux disease, unspecified whether esophagitis present; Iron deficiency anemia due to chronic blood loss; Situational depression; Esophageal adenocarcinoma (HCC); Malignant 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); Primary insomnia; Closed wedge compression fracture of T10 vertebra with routine healing, subsequent encounter; Pressure injury of buttock, stage 2, unspecified laterality (HCC); Elevated blood sugar; Cold intolerance; Advance directive discussed with patient; Encounter for screening examination for other mental health and behavioral disorders; Prostate disorder; Medication management Start: 03-03-2024 End: 03-03-2024 Home visit Yaw Singh MD Work Phone: [facility] Comment on above: Closed intracapsular fracture of left femur with routine healing (Primary Dx) Start: 02-15-2024 End: 02-15-2024 Chart abstracting Yaw Singh MD Work Phone: [facility] Comment on above: ER Discharge Summary (H&P) Start: 02-15-2024 ambulatory [facility] Facility:[facility] [place] Start: 02-15-[address] Elliot Singh MD Work Phone: [facility] Start: 02-04-2024 End: 02-04-2024 Telephone encounter Zachary Harpertaniya [employer]KHAM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 Work Phone: Pulmonary Medicine Start: 01-31-2024 ambulatory [facility] Start: 01-31-2024 End: 01-31-2024 Subsequent hospital visit by physician [facility] Comment on above: Pleural effusion [J9 0] Start: 01-31-2024 End: 01-31-2024 Patient encounter procedure Zachary Berkowitz RAILROAD CONDUCTOR.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 Work Phone: Pulmonary Medicine Comment on above: Pleural effusion (Pr imary Dx); Lung nodules; Seasonal allergies; Oral thrush Start: 01-28-2024 End: 01-29-2024 Telephone encounter Richard Jenkins DO Work Phone: Hematology/Oncology Comment on above: Results Start: 01-24-2024 ambulatory RICHARD JENKINS [facility] Start: 01-24-2024 End: 01-24-2024 Subsequent hospital visit by physician Gi/[facility] Comment on above: 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] Start: 01-17-2024 End: 01-18-2024 Telephone encounter Yaw Singh MD Work Phone: [facility] [place] Comment on above: Patient Update; Danya ent Question Results Start: 01-17-2024 End: 01-17-2024 Patient encounter procedure Yaw Singh MD Work Phone: [facility] [place] Comment on above: Healing pressure inj ury, stage 1 (Primary Dx) Start: 01-15-2024 End: 01-15-2024 ambulatory Richard Jenkins DO Work Phone: Hematology/Oncology Comment on above: 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); Early satiety; Nausea; Anemia, unspecified type Start: 01-15-2024 End: 01-15-2024 Patient encounter procedure Richard Jenkins DO Work Phone: Hematology/Oncology Start: 01-10-2024 End: 01-10-2024 Telephone encounter Yaw Singh MD Work Phone: [facility] [place] Comment on above: update on patient Start: 01-06-2024 End: 01-06-2024 Home visit Yaw Singh MD Work Phone: [facility] [place] Comment on above: Heart failure, unspe cified HF chronicity, unspecified heart failure type (HCC) (Primary Dx) Start: 01-06-2024 End: 01-14-2024 Telephone encounter Yaw Singh MD Work Phone: Family [facility] [place] Comment on above: Results Start: 01-03-2024 End: 01-03-2024 Patient encounter procedure Yaw Singh MD Work Phone: [facility] [place] Comment on above: Pressure injury of b uttock, stage 2, unspecified laterality (HCC) (Primary Dx); CKD (chronic kidney disease) stage 4, GFR 15-29 ml/min (HCC); Iron deficiency anemia due to chronic blood loss; 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 Start: 01-02-2024 End: 01-08-2024 Telephone encounter Alberta Candelaria MA [facility] Comment on above: Patient Update Start: 01-01-2024 End: 01-01-2024 Telephone encounter Yaw Singh MD Work Phone: [facility] [place] Comment on above: Patient Update; from home health Start: 12-31-2023 End: 12-31-2023 Telephone encounter Yaw Singh MD Work Phone: Internal Medicine [place] Comment on above: Orders Start: 12-28-2023 End: 12-28-2023 Telephone encounter Yaw Singh MD Work Phone: [facility] [place] Comment on above: Home Health Orders Start: 12-25-2023 End: 12-25-2023 Chart abstracting Yaw Singh MD Work Phone: [facility] [place] Comment on above: Outside EGD Start: 11-15-2023 Chart abstracting Yaw hernandez MD Work Phone: [facility] [place] Comment on above: Outside H&P (Outside Nephrology/) Start: 11-07-2023 Chart abstracting Alberta Candelaria MA [facility] [place] Comment on above: Hospital Admission ( [facility] ) Start: 11-05-2023 Chart abstracting Yaw hernandez MD Work Phone: [facility] [place] Comment on above: Outside EGD Hospital F/U ([facility] ) Start: 11-02-2023 Chart abstracting Alberta Candelaria MA [facility] Comment on above: Hospital F/U ([facility] ) Start: 10-31-2023 Chart abstracting Alberta Candelaria MA [facility] [place] Comment on above: Consult (External co nsult Pulmonary - [facility] admitted ) Start: 10-29-2023 Chart abstracting Alberta Candelaria MA [facility] [place] Comment on above: Hospital F/U ([facility] ) Start: 10-23-2023 Telephone encounter Richard pace DO Work Phone: Hematology/Oncology Comment on above: Results Start: 10-09-2023 End: 10-09-2023 Patient encounter procedure Helen Blair MD Work Phone: Pulmonary Medicine Comment on above: Pleural effusion (Pr imary Dx); Chronic heart failure with preserved ejection fraction (HCC) Start: 10-08-2023 Telephone encounter Helen ann MD Work Phone: [facility] Comment on above: Patient Question Results Start: 10-05-2023 End: 10-05-2023 Patient encounter procedure Yaw Singh MD Work Phone: [facility] [place] Comment on above: Essential hypertensi on, benign (Primary Dx); Mixed hyperlipidemia; Gastroesophageal reflux disease, unspecified whether esophagitis present; Coronary artery disease involving s[place] coronary artery of s[place]mie heart without angina pectoris; Ascending aorta dilation (HCC); Iron deficiency anemia due to chronic blood loss; Uncomplicated asthma, unspecified asthma severity, unspecified whether persistent; Malignant 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); Esophageal adenocarcinoma (HCC); Pleural effusion; Primary insomnia; Microscopic hematuria; Medication management Start: 09-21-2023 Telephone encounter Usha white PA-C Work Phone: [facility] [place] Comment on above: Results Start: 09-17-2023 Telephone encounter Richard pace DO Work Phone: Hematology/Oncology Comment on above: Biopsy Request (Bone Biopsy) Results Start: 09-14-2023 Telephone encounter Usha white PA-C Work Phone: [facility] [place] Comment on above: Results Start: 09-13-2023 End: 09-13-2023 Subsequent hospital visit by physician Xr [facility] [place] Work Phone: Radiology Comment on above: Pleural effusion [J9 0] Start: 09-13-2023 End: 09-13-2023 Patient encounter procedure Usha Mcgovern PA-C Work Phone: [facility] [place] Comment on above: Pleural effusion (Pr imary Dx); Nephrolithiasis; TRIPATHI (dyspnea on exertion); Coronary artery disease involving s[place] coronary artery of s[place]mie heart without angina pectoris; Essential hypertension, benign Start: 09-12-2023 Telephone encounter Alberta Candelaria MA [facility] [place] Comment on above: Patient Update Start: 09-10-2023 End: 09-10-2023 Subsequent hospital visit by physician Mri [employer] [facility] (I-Stat/1.5t) Work Phone: Radiology Comment on above: Pathological fractur e of thoracic vertebra, initial encounter [M84.48XA] Start: 09-06-2023 End: 09-06-2023 ambulatory Tye Flores PT Work Phone: [facility] Physical Therapy Comment on above: Strain of thoracic p araspinal muscles excluding T1 and T2 levels, sequela (Primary Dx); Malignant 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); Closed wedge compression fracture of T10 vertebra with routine healing, subsequent encounter; Kyphosis (acquired) (postural) Start: 08-10-2023 Telephone encounter Richard pace DO Work Phone: Hematology/Oncology Comment on above: AVS 08/10/23 Start: 08-10-2023 End: 08-10-2023 ambulatory Richard Jenkins DO Work Phone: Hematology/Oncology Comment on above: 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); Pathological fracture of thoracic vertebra, initial encounter Start: 08-10-2023 End: 08-10-2023 Patient encounter procedure Richard Jenkins DO Work Phone: Hematology/Oncology Start: 08-03-2023 End: 08-03-2023 [facility] Comment on above: 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] Start: 08-01-2023 Orders Only Richard Yoder O Work Phone: Hematology/Oncology Comment on above: 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) Start: 07-30-2023 End: 07-30-2023 ambulatory Tye Flores PT Work Phone: [facility] Physical Therapy Comment on above: Closed wedge pablo murray fracture of T10 vertebra with routine healing, subsequent encounter; Malignant 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); Strain of thoracic paraspinal muscles excluding T1 and T2 levels, sequela; Kyphosis (acquired) (postural) Start: 07-19-2023 Telephone encounter Richard pace DO Work Phone: Hematology/Oncology Comment on above: Patient Question Start: 07-12-2023 End: 07-12-2023 Patient encounter procedure Jesus Manuel Resendiz PA-C Work Phone: [facility] Comment on above: Strain of thoracic p araspinal muscles excluding T1 and T2 levels, sequela (Primary Dx); Closed wedge compression fracture of T10 vertebra with routine healing, subsequent encounter; Malignant 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); Kyphosis (acquired) (postural) Start: 07-02-2023 Telephone encounter Usha white PA-C Work Phone: [facility] [place] Comment on above: Results Start: 06-28-2023 Telephone encounter Yaw Singh MD Work Phone: [facility] [place] Comment on above: Results Start: 06-28-2023 End: 06-28-2023 Subsequent hospital visit by physician [facility] Work Phone: Nuclear Medicine Comment on above: RUQ pain [R10.11] Start: 06-19-2023 Telephone encounter Yaw Singh MD Work Phone: [facility] [place] Comment on above: Results Start: 06-19-2023 End: 06-19-2023 Patient encounter procedure Usha Mcgovern PA-C Work Phone: [facility] [place] Comment on above: RUQ pain (Primary Dx ); Nausea; Chronic midline low back pain without sciatica; Intertrigo Start: 06-15-2023 Telephone encounter Richard pace DO Work Phone: Hematology/Oncology Comment on above: Patient Question Start: 06-05-2023 Encounter for other preprocedural examination AMOS RANGEL [facility] Start: 06-05-2023 ambulatory AMOS RANGEL Facility :[facility] Start: 06-05-2023 End: 06-05-2023 Preprocedural examination done Amos Rangel MD Work Phone: [facility] Start: 06-05-2023 End: 06-05-2023 Subsequent hospital visit by physician Amos Rangel MD Work Phone: [facility] Comment on above: Malignant neoplasm o f esophagus, unspecified location (HCC) [C15.9] Start: 05-29-2023 Refill Richard Yoder O Work Phone: Hematology/Oncology Comment on above: Refill Request Start: 05-28-2023 Orders Only Amos Rangel MD Work Phone: [facility] Comment on above: Malignant neoplasm o f esophagus, unspecified location (HCC) (Primary Dx) Start: 05-07-2023 ambulatory JURGEN BOCANEGRA Facil ity:[facility] Start: 04-25-2023 End: 04-25-2023 ambulatory JURGEN BOCANEGRA Facility:[facility] Start: 04-10-2023 ambulatory RICHARD JENKINS Facility:[facility] Start: 03-30-2023 Patient encounter procedure Amos Rangel MD Work Phone: [facility] Work Phone: Start: 03-29-2023 Telephone encounter Richard pace DO Work Phone: Hematology/Oncology Comment on above: Results (MRI thoraci c spine) Start: 02-27-2023 End: 02-27-2023 Patient encounter procedure Jessica Olvera APRN.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 Work Phone: [facility] Comment on above: Rhinosinusitis (Prim ursula Dx) Start: 02-21-2023 Telephone encounter Richard pace DO Work Phone: Hematology/Oncology Comment on above: Results; Follow Up Start: 02-19-2023 End: 02-19-2023 Patient encounter procedure Yaw Singh MD Work Phone: [facility] [place] Comment on above: APPOINTMENT CANCELLE D (Primary Dx) Start: 02-13-2023 End: 02-13-2023 Subsequent hospital visit by physician Dina [facility] (I-Stat) Work Phone: Cat Scan Comment on above: 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] Start: 02-12-2023 Orders Only Richard Yoder O Work Phone: Hematology/Oncology Comment on above: 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) Start: 11-22-2022 Chart abstracting Yaw hernandez MD Work Phone: [facility] Comment on above: Consult Start: 11-15-2022 End: 11-15-2022 ambulatory [facility] Work Phone: Start: 11-15-2022 End: 11-15-2022 Patient encounter procedure [facility] Work Phone: Start: 08-22-2022 End: 08-22-2022 ambulatory Richard Jenkins DO Work Phone: Hematology/Oncology Comment on above: 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) Start: 08-22-2022 End: 08-22-2022 Patient encounter procedure Richard Jenkins DO Work Phone: [facility] Start: 08-09-2022 End: 08-09-2022 Patient encounter procedure Usha Mcgovern PA-C Work Phone: [facility] Comment on above: Essential hypertensi on, benign (Primary Dx); Mixed hyperlipidemia; Gastroesophageal reflux disease, unspecified whether esophagitis present; Esophageal adenocarcinoma (HCC); Coronary artery disease involving [place] coronary artery of s[place] heart without angina pectoris; S/P CABG x 4; Malignant 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); Iron deficiency anemia due to chronic blood loss; Benign prostatic hyperplasia, unspecified whether lower urinary tract symptoms present Start: 08-02-2022 End: 08-02-2022 Patient encounter procedure Queta Hunt APRN.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 Work Phone: [facility] Comment on above: 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 Yaw Singh Work Phone: [facility] Work Phone: Start: 07-24-2022 End: 07-24-[address] Yaw Singh Work Phone: [facility] Start: 06-26-2022 Chart abstracting Yaw hernandez MD Work Phone: [facility] Comment on above: ER and Imaging Start: 06-26-2022 Telephone encounter Yaw Singh MD Work Phone: [facility] Comment on above: Patient Question Start: 06-23-2022 End: 06-23-2022 Emergency department patient visit Dr. Yaw Singh Work Phone: [facility]-Emergency Department Start: 06-16-2022 Telephone encounter Yaw Singh MD Work Phone: NOC Comment on above: Appointment Start: 06-09-2022 End: 06-09-2022 Subsequent hospital visit by physician Xr [facility] Work Phone: Radiology Comment on above: Rib injury [S29.9XXA ] Start: 06-09-2022 End: 06-09-2022 Office outpatient visit 15 minutes Yaw Smith APRN.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 Work Phone: [facility] Comment on above: Rib injury (Primary Dx) Start: 05-29-2022 Telephone encounter Mari gill RAILROAD CONDUCTOR.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 Work Phone: Hematology/Oncology Comment on above: Future Appointment Start: 05-25-2022 End: 05-25-2022 ambulatory Mari Akhtar RAILROAD CONDUCTOR.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 Work Phone: Hematology/Oncology Comment on above: 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) Start: 05-25-2022 End: 05-25-2022 Patient encounter procedure Mari Akhtar RAILROAD CONDUCTOR.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 Work Phone: [facility] Start: 05-22-2022 End: 05-22-2022 Subsequent hospital visit by physician Ct [facility] (I-Stat) Work Phone: Cat Scan Comment on above: 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 Yaw Singh Work Phone: [facility] Start: 04-20-2022 ambulatory Yaw leonardo MD Work Phone: [facility] Comment on above: Hematuria Start: 03-19-2022 Telephone encounter Yaw Singh MD Work Phone: [facility] Comment on above: Results Start: 03-18-2022 Telephone encounter Edith Rivas RAILROAD CONDUCTOR.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 Work Phone: [facility] Comment on above: Results Start: 03-17-2022 End: 03-17-2022 Patient encounter procedure Dana Humphries RAILROAD CONDUCTOR.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 Work Phone: [facility] Comment on above: Sinus congestion (Pr imary Dx); Acute cough Start: 02-22-2022 End: 02-22-2022 ambulatory Mari Akhtar RAILROAD CONDUCTOR.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 Work Phone: Hematology/Oncology Comment on above: 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) Start: 02-22-2022 End: 02-22-2022 Patient encounter procedure Mari Akhtar APRN.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 Work Phone: [facility] Start: 02-21-2022 Telephone encounter Yaw Singh MD Work Phone: [facility] Comment on above: Results Start: 02-20-2022 End: 02-20-2022 Subsequent hospital visit by physician Ct [facility] (I-Stat) Work Phone: Cat Scan Comment on above: 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] Start: 02-09-2022 End: 02-09-2022 Patient encounter procedure Yaw Singh MD Work Phone: [facility] Comment on above: Medicare annual well ness visit, subsequent (Primary Dx); Essential hypertension, benign; Mixed hyperlipidemia; Gastroesophageal reflux disease, unspecified whether esophagitis present; Iron deficiency anemia due to chronic blood loss; Coronary artery disease involving [place] coronary artery of s[place]mie heart without angina pectoris; Aortic valve stenosis, etiology of cardiac valve disease unspecified; Uncomplicated asthma, unspecified asthma severity, unspecified whether persistent; Situational depression; Esophageal adenocarcinoma (HCC); Malignant 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); Pleural effusion; Balanitis; Advance directive discussed with patient; Medication management; Prostate disorder; Decreased sexual desire; Encounter for immunization Start: 12-01-2021 End: 12-01-2021 ambulatory Mari Akhtar APRN.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 Work Phone: Hematology/Oncology Comment on above: 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) Start: 12-01-2021 End: 12-01-2021 Patient encounter procedure Mari Akhtar APRN.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 Work Phone: [facility] Start: 11-16-2021 Telephone encounter Richard pace DO Work Phone: Hematology/Oncology Comment on above: Patient Question Start: 11-09-2021 End: 11-09-2021 Patient encounter procedure Queta Gleason APRN.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 Work Phone: [facility] Comment on above: 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) Start: 11-09-2021 End: 11-09-2021 Subsequent hospital visit by physician Francesca Vazquez MD Work Phone: Gastroenterology Comment on above: 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] Start: 11-02-2021 Telephone encounter Carrie jacobsen RN Gastroenterology Comment on above: Appointment Confirma tion Start: 11-02-2021 End: 11-02-2021 ambulatory Richard Jenkins DO Work Phone: Hematology/Oncology Comment on above: 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) Start: 11-02-2021 End: 11-02-2021 Patient encounter procedure Richard Jenkins DO Work Phone: [facility] Start: 10-20-2021 End: 10-20-2021 ambulatory Treatment 12 [facility] Work Phone: Hematology/Oncology Comment on above: Esophageal adenocarc inoma (HCC) (Primary Dx); Malignant 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) Start: 10-05-2021 End: 10-05-2021 ambulatory Richard Jenkins DO Work Phone: Hematology/Oncology Comment on above: 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); Pleural effusion Start: 10-05-2021 End: 10-05-2021 Patient encounter procedure Richard Jenkins DO [facility] Start: 10-03-2021 End: 10-03-2021 Subsequent hospital visit by physician Dina [facility] (I-Stat) Work Phone: Cat Scan Comment on above: 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] Start: 09-30-2021 Orders Only Richard Chen Work Phone: Hematology/Oncology Comment on above: Esophageal adenocarc inoma (HCC) (Primary Dx); Acquired hypothyroidism; Iron deficiency anemia due to chronic blood loss Start: 09-09-2021 Telephone encounter Richard pace DO Work Phone: Hematology/Oncology Comment on above: Results (Add T4) Start: 09-08-2021 End: 09-08-2021 ambulatory Treatment 12 [facility] Work Phone: Hematology/Oncology Comment on above: Esophageal adenocarc inoma (HCC) (Primary Dx); Malignant 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) Start: 09-07-2021 End: 09-07-2021 Patient encounter procedure Queta Gleason APRN.CNP Work Phone: [facility] Comment on above: 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); Duodenal ulcer Start: 09-07-2021 End: 09-07-2021 Subsequent hospital visit by physician Francesca Vazquez MD Work Phone: Gastroenterology Comment on above: 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] Start: 08-25-2021 End: 08-25-2021 ambulatory Treatment Rm 11 [facility] Work Phone: Hematology/Oncology Comment on above: Esophageal adenocarc inoma (HCC) (Primary Dx); Malignant 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) Start: 08-24-2021 End: 08-24-2021 ambulatory Mari Akhtar APRN.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 Work Phone: Hematology/Oncology Comment on above: Esophageal adenocarc inoma (HCC) (Primary Dx) Start: 08-24-2021 End: 08-24-2021 Patient encounter procedure Mari Akhtar APRN.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 Work Phone[facility] Start: 08-11-2021 End: 08-11-2021 ambulatory Treatment 11 [facility] Work Phone: Hematology/Oncology Comment on above: Esophageal adenocarc inoma (HCC) (Primary Dx); Malignant 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) Start: 08-04-2021 Orders Only Renetta Dubon nd, MD Work Phone: [facility] Comment on above: 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) Start: 07-28-2021 End: 07-28-2021 ambulatory Treatment Rm 10 [facility] Work Phone: Hematology/Oncology Comment on above: Esophageal adenocarc inoma (HCC) (Primary Dx); Malignant 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) Start: 07-28-2021 Telephone encounter Usha white PA-C Work Phone: [facility] Comment on above: Results Start: 07-27-2021 End: 07-27-2021 ambulatory Richard Jenkins DO Work Phone: Hematology/Oncology Comment on above: Esophageal adenocarc inoma (HCC) (Primary Dx); Iron deficiency anemia due to chronic blood loss; LEELA (acute kidney injury) (HCC); Other hypervolemia Start: 07-27-2021 End: 07-27-2021 Patient encounter procedure Richard Jenkins DO Work Phone: [facility] Start: 01-13-2021 Patient encounter procedure Richard Jenkins DO Work Phone: [facility] Work Phone: Start: 03-03-2020 End: 03-03-2020 Subsequent hospital visit by physician 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 Work Phone: [facility] [address] Comment on above: S/P TAVR (transcathe ter aortic valve replacement); Aortic valve stenosis, etiology of cardiac valve disease unspecified Start: 04-16-2019 End: 04-16-2019 Subsequent hospital visit by physician 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 RAILROAD CONDUCTOR - 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 Work Phone: [facility] [address] Comment on above: Aortic valve stenosi s, etiology of cardiac valve disease unspecified Start: 04-16-2019 End: 04-16-2019 Subsequent hospital visit by physician 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 RAILROAD CONDUCTOR - 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 Work Phone: [facility] [address] Comment on above: Severe aortic stenos is; Coronary artery disease involving [place] coronary artery of [place] heart without angina pectoris; Essential hypertension; Obesity (BMI 30.0-34.9) Start: 03-03-2019 End: 03-04-2019 Evaluation and management of inpatient Tyshawn Magallanes Work Phone: [facility] Comment on above: Arrived Start: 02-21-2019 End: 02-21-2019 Subsequent hospital visit by physician Krys Toscano Work Phone: [facility] [address] Comment on above: Nonrheumatic aortic valve stenosis Start: 02-21-2019 End: 02-21-2019 Subsequent hospital visit by physician Tyshawn Magallanes Work Phone: [facility] Comment on above: Nonrheumatic aortic valve stenosis Start: 02-18-2019 End: 02-18-2019 Subsequent hospital visit by physician Tyshawn Magallanes Work Phone: [facility] [address] Comment on above: Nonrheumatic aortic valve stenosis Start: 11-24-2017 Patient encounter Reynold morales:[facility] Start: 07-20-2017 End: 07-20-2017 Emergency department patient visit KATHI BEASLEY [facility] Procedures Date Procedure Procedure Detail Performing Clinician Start: 12-03-2024 MRI of lumbar spine Dr. Yaw Singh MD Work Phone: Start: 11-26-2024 Dual energy X-ray absorptiometry Dr. Zurdo Singh MD Work Phone: Start: 11-14-2024 X-ray of lumbar spine, two or three views Dr. Yaw Singh MD Work Phone: Start: 10-07-2024 Lipid 1996 panel - Serum or Plasma Xr [facility] Work Phone: Start: 09-08-2024 Mri brain brain stem w/o contrast material Stacia Adame MD Work Phone: Start: 08-20-2024 Radex spine lumbosacral 2/3 views Steve yip PA-C Work Phone: Start: 06-30-2024 Creation of lower limb arteriovenous fistula Dr. Yaw Singh MD Work Phone: Start: 06-11-2024 Antibody screen YAW SINGH Comment on above: Order Comment: Specimen Type: BLOOD SPEC IMENOrdering Facility: [facility] Address: [address] [place] [address] Performed By: #### T SCR ####CC MAIN BLOOD BANKCLIA [id number] [address] [place] Start: 05-07-2024 Mri spinal canal thoracic w/o & w/contr matrl Richard Jenkins DO Work Phone: Start: 04-17-2024 Lipid 1996 panel - Serum or Plasma Ct (I -Stat) Work Phone: Start: 01-24-2024 Radiologic small intestine follow-through study Richard Jenkins DO Work Phone: Start: 01-24-2024 XR UPPER GI SINGLE CONTRAST Richard Jenkins DO Work Phone: Start: 10-05-2023 Lipid 1995 panel - Serum or Plasma Fuad Singh MD Work Phone: Start: 09-13-2023 Radiologic exam chest 2 views Usha white PA-C Work Phone: Start: 09-10-2023 Mri spinal canal thoracic w/o & w/contr matrl Richard A Masci DO Work Phone: Start: 06-28-2023 Hepatobil syst imag inc gb w/pharma intervenj Usha Mcgovern PA-C Work Phone: Start: 06-19-2023 Lipid 1995 panel - Serum or Plasma Fuad Singh MD Work Phone: Start: 06-05-2023 Esophagoscp rig transoral hypopharynx crv winston Rangel MD Work Phone: Start: 08-02-2022 Esophagogastroduodenoscopy transoral diagnostic Queta Hunt RAILROAD CONDUCTOR.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 Work Phone: Start: 07-24-2022 Diagnostic radiography of abdomen Dr. Neal Singh Work Phone: Start: 06-23-2022 Computed tomography of abdomen and pelvis with contrast Dr. Yaw Singh Work Phone: Start: 06-09-2022 Radex ribs uni w/posteroant ch minimum 3 views Yaw Smith RAILROAD CONDUCTOR.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 Work Phone: Start: 05-22-2022 Ct abdomen & pelvis w/contrast material Mari Akhtar RAILROAD CONDUCTOR.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 Work Phone: Start: 05-22-2022 Ct thorax w/contrast material Mari Carp bridget RAILROAD CONDUCTOR.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 Work Phone: Start: 02-20-2022 Ct abdomen & pelvis w/contrast material Richard Mendezi DO Work Phone: Start: 02-20-2022 Ct thorax w/contrast material Richard Tubbs ci DO Work Phone: Start: 02-20-2022 Lipid 1996 panel - Serum or Plasma Ct (I -Stat) Work Phone: Start: 02-09-2022 INFLUENZA SEASONAL QUADRIVALENT HIGH DOSE AGE 65+ Yaw Singh MD Work Phone: Start: 11-09-2021 Esophagogastroduodenoscopy transoral diagnostic Rosibel RAILROAD CONDUCTOR.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 Work Phone: Start: 10-03-2021 Ct abdomen & pelvis w/contrast material Wales Akhtar RAILROAD CONDUCTOR.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 Work Phone: Start: 10-03-2021 Ct thorax w/contrast material Wales Carp enter RAILROAD CONDUCTOR.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 Work Phone: Start: 09-07-2021 Esophagogastroduodenoscopy transoral diagnostic Renetta Radford MD Work Phone: Start: 06-01-2020 Colonoscopy Richard Goi DO Work Phone: Start: 03-03-2020 Echo tthrc r-t 2d w/wom-mode compl spec&colr d 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 Work Phone: Start: 04-16-2019 Echo tthrc r-t 2d w/wom-mode compl spec&colr d 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 RAILROAD CONDUCTOR - 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 Work Phone: Start: 04-16-2019 Basic metabolic panel calcium total 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 RAILROAD CONDUCTOR - 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 Work Phone: Start: 03-04-2019 Echo tthrc r-t 2d w/wom-mode compl spec&colr d 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 Work Phone: Start: 03-04-2019 OPERATIVE REPORT 3m Scanning Start: 03-04-2019 Basic metabolic panel calcium total 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 Work Phone: Start: 03-04-2019 Blood count complete automated 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 Work Phone: Start: 03-03-2019 Ecg routine ecg w/least 12 lds w/i&r 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 Work Phone: Start: 03-03-2019 Basic metabolic panel calcium total 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 Work Phone: Start: 03-03-2019 Blood count complete automated 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 Work Phone: Start: 03-03-2019 ECHOCARDIOGRAM LIMITED Tyshawn Carostevie cuba Work Phone: Start: 03-03-2019 Blood typing serologic abo Unknown Provi trena Result Start: 03-03-2019 POTASSIUM W/ REFLEX TO MAGNESIUM Roseann Harding Work Phone: Start: 02-21-2019 Blood count complete auto&auto difrntl wbc Krys Toscano Work Phone: Start: 02-21-2019 Blood typing serologic abo Krys Toscano Work Phone: Start: 02-21-2019 Comprehensive metabolic panel Krys olivera Work Phone: Start: 02-21-2019 MANUAL DIFFERENTIAL Krys Toscano Work Phone: Start: 02-21-2019 Natriuretic peptide Krys Toscano Work Phone: Start: 02-21-2019 PROTIME/INR & PTT Krys Toscano Work Phone: Start: 02-21-2019 Urnls dip stick/tablet rgnt auto w/o microscopy Krys Toscano Work Phone: Start: 02-21-2019 Radiologic exam chest 2 views Krys olivera Work Phone: Start: 02-21-2019 Ct angiography chest w/contrast/noncontrast Tyshawn Magallanes Work Phone: Start: 02-18-2019 Basic metabolic panel calcium total Tyshawn Magallanes Work Phone: Start: 12-31-2018 History of placement of stent for coronary artery disease History of coronary artery stent placement Dr. Yaw Singh Work Phone: Comment on above: LEA-MMK-Dntaqe RPDA w/ 2.25 x 16 mm Prom us Premier, APPLE-Distal RCA w/ 4.0 x 16 mm Promus Premier and APPLE-Mid RCA w/ 4.0 x 16 mm Promus Premier 07/23/2014; WZU-QYQ-Uunboj SVG-D1 w/ 3.5 x 18 mm Xience Taylor Stent 12/31/18 Start: 07-23-2017 History of coronary artery bypass grafting S/P CABG x 4 Richard Zuleika Work Phone: Start: 07-20-2017 EKG 12-LEAD VESELIN RAMOS Start: 07-20-2017 TROPONIN VESELIN RAMOS Start: 07-20-2017 Radiologic exam chest 2 views VESELIN DI MITROV Start: 07-20-2017 BASIC METABOLIC PANEL VESELIN RAMOS Start: 07-20-2017 BRAIN NATRIURETIC PEPTIDE VESELIN DIMITR OV Start: 07-20-2017 CBC WITH AUTO DIFFERENTIAL VESELIN DIMIT ROV Start: 07-20-2017 TROPONIN VESELIN RAMOS Start: 07-20-2017 EKG 12-LEAD VESELIN RAMOS Start: 09-18-2002 History of coronary artery bypass grafting H/O coronary artery bypass surgery Dr. Yaw Singh Work Phone: Comment on above: CABG x 3: MCKEON-LAD, SURAJ-Ramus, SVG-D1 History of coronary artery bypass grafting S/P CABG x 4 Usha Mcgovern PA-C Work Phone: History of coronary artery bypass grafting S/P CABG x 4 Amos Rangel MD Work Phone: History of coronary artery bypass grafting S/P CABG x 4 Urology [facility] Work Phone: Plan of Treatment Date Care Activity Detail Author Start: 05-07-2034 Urine microalbumin profile DTaP,Tdap,Td Vaccine (5 - Td or Tdap) [facility] Start: 10-07-2029 Lipid panel Lipid Screening [facility] Start: 04-17-2029 Lipid panel Lipid Screening [facility] Start: 10-04-2028 Lipid panel Lipid Screening [facility] Start: 06-18-2028 Lipid panel Lipid Screening [facility] Start: 01-29-2028 DTaP/Tdap/Td vaccine (3 - Td) DTaP/Tdap/Td vaccine (3 - Td) [place], [place] Start: 01-29-2028 Urine microalbumin profile [facility] Start: 10-08-2027 Diabetes Screening Diabetes Screening [facility] Start: 06-12-2027 Diabetes Screening Diabetes Screening [facility] Start: 04-17-2027 Diabetes Screening Diabetes Screening [facility] Start: 02-20-2027 Lipid 1996 panel - Serum or Plasma Lipid Screening [facility] Start: 02-20-2027 Lipid panel Lipid Screening [facility] Start: 02-20-2027 LIPID SCREEN LIPID SCREEN [facility] Start: 02-20-2027 PROSTATE CANCER SCREENING DISCUSSION PROSTATE CANCER SCREENING DISCUSSION [facility] Start: 02-20-2027 Prostate specific antigen measurement Prostate Cancer Screening Discussion [facility] Start: 12-06-2026 Colon cancer screen colonoscopy Colon cancer screen colonoscopy [place], [place] Start: 12-06-2026 Screening for malignant neoplasm of colon Colon cancer screen colonoscopy [place], [place] Start: 10-04-2026 Diabetes Screening Diabetes Screening [facility] Start: 09-12-2026 Diabetes Screening Diabetes Screening [facility] Start: 07-27-2026 LIPID SCREEN LIPID SCREEN [facility] Start: 06-18-2026 Diabetes Screening Diabetes Screening [facility] Start: 02-13-2026 Diabetes Screening Diabetes Screening [facility] Start: 01-20-2026 PROSTATE CANCER SCREENING DISCUSSION PROSTATE CANCER SCREENING DISCUSSION [facility] Start: 01-07-2026 LIPID SCREEN LIPID SCREEN [facility] Start: 10-07-2025 Annual PCP Team Chronic Disease Visit Annual PCP Team Chronic Disease Visit [facility] Start: 10-07-2025 Creatinine measurement Serum Creatinine [facility] Start: 10-07-2025 Hepatitis B surface antibody level LDL Cholesterol [facility] Start: 09-22-2025 Annual PCP Team Chronic Disease Visit Annual PCP Team Chronic Disease Visit [facility] Start: 09-12-2025 BP Controlled (<130/80) BP Controlled (<130/80) [facility] Start: 08-22-2025 DIABETES SCREEN DIABETES SCREEN [facility] Start: 08-22-2025 Diabetes Screening Diabetes Screening [facility] Start: 08-20-2025 BP Controlled (<130/80) BP Controlled (<130/80) [facility] Start: 08-05-2025 BP Controlled (<130/80) BP Controlled (<130/80) [facility] Start: 06-30-2025 Annual PCP Team Chronic Disease Visit Annual PCP Team Chronic Disease Visit [facility] Start: 06-30-2025 BP Controlled (<130/80) BP Controlled (<130/80) [facility] Start: 06-11-2025 BP Controlled (<130/80) BP Controlled (<130/80) [facility] Start: 06-11-2025 Complete blood count Hemoglobin/Hematocrit [facility] Start: 06-11-2025 Creatinine measurement Serum Creatinine [facility] Start: 06-01-2025 Colonoscopy COLONOSCOPY [facility] Start: 06-01-2025 COLORECTAL CANCER SCREENING COLORECTAL CANCER SCREENING [facility] Start: 06-01-2025 Screening for malignant neoplasm of colon [facility] Start: 05-22-2025 DIABETES SCREEN DIABETES SCREEN [facility] Start: 05-11-2025 End: 05-11-2025 ambulatory 05/11/2025 9:50 AM EST Visit (SP) Office Hematology/Oncology [address] [place] [id number] Richard Jenkins DO [address] [place] [id number] 6MO OV/CT & LABS 05/04* Hematology/Oncology Comment on above: 6MO OV/CT & LABS 05/04* Start: 05-07-2025 BP Controlled (<130/80) BP Controlled (<130/80) [facility] Start: 05-04-2025 End: 05-04-2025 Patient encounter procedure Cat Scan Comment on above: 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] Start: 05-04-2025 End: 05-04-2025 ambulatory 05/04/2025 9:00 AM EST Results Only [facility] [address] [place] [id number] CBC/CMP [facility] Comment on above: CBC/CMP Start: 04-17-2025 Complete blood count Hemoglobin/Hematocrit [facility] Start: 04-17-2025 Creatinine measurement Serum Creatinine [facility] Start: 04-17-2025 Hepatitis B surface antibody level LDL Cholesterol [facility] Start: 03-11-2025 Annual PCP Team Chronic Disease Visit Annual PCP Team Chronic Disease Visit [facility] Start: 03-11-2025 Anxiety Screening Anxiety Screening [facility] Start: 03-11-2025 BP Controlled (<130/80) BP Controlled (<130/80) [facility] Start: 03-11-2025 Medicare Annual Wellness Visit Medicare Annual Wellness Visit [facility] Start: 03-11-2025 End: 03-11-2025 Patient encounter procedure 03/11/2025 8:00 AM EST Office Visit Family [facility] [address] [place] [address] Yaw Singh MD [address] [place], [place] [id number] Medicare Wellness [facility] Comment on above: Medicare Wellness Start: 02-20-2025 DIABETES SCREEN DIABETES SCREEN [facility] Start: 01-30-2025 BP Controlled (<130/80) BP Controlled (<130/80) [facility] Start: 01-16-2025 Annual PCP Team Chronic Disease Visit Annual PCP Team Chronic Disease Visit [facility] Start: 01-16-2025 BP Controlled (<130/80) BP Controlled (<130/80) [facility] Start: 01-05-2025 End: 01-05-2025 Patient encounter procedure 01/05/2025 7:00 AM EDT Office Visit [facility] [address] [place] [address] Yaw Singh MD [address] [place], [place] [id number] Review outside testing [facility] Comment on above: Review outside testing BMD Start: 01-02-2025 Annual PCP Team Chronic Disease Visit Annual PCP Team Chronic Disease Visit [facility] Start: 01-02-2025 BP Controlled (<130/80) BP Controlled (<130/80) [facility] Start: 12-08-2024 Influenza [facility] Start: 12-03-2024 MR Lumbar spine [facility] Start: 12-03-2024 MRI of lumbar spine Spine Lumbar (Routine) [facility] Start: 11-20-2024 End: 11-20-2024 Patient encounter procedure 11/20/2024 1:00 PM EDT Office Visit [facility] [address] [place] [address] Gloria Torres APRN.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 [address] [place] [address] Lumbar back pain [M54.50]; Compression fracture of lumbar vertebra with routine healing, unspecified lumbar vertebral level, subsequent encounter [S32.000D]; Closed wedge compression fracture of T10 vertebra with routine healing, subsequent encounter [S22.070D [facility] Comment on above: Lumbar back pain [M54.50]; Compression f racture of lumbar vertebra with routine healing, unspecified lumbar vertebral level, subsequent encounter [S32.000D]; Closed wedge compression fracture of T10 vertebra with routine healing, subsequent encounter [S22.070D Start: 11-14-2024 X-ray of lumbar spine, two or three views Lumbar Spine 2 or 3 Views [facility] Start: 11-07-2024 End: 11-07-2024 ambulatory 11/07/2024 9:40 AM EDT Visit (SP) Office Hematology/Oncology [address] [place] [address] Richard Jenkins DO [address] [place] [address] 6 MO OV/MRI 05/07 &CT 11/07* Hematology/Oncology Comment on above: 6 MO OV/MRI 05/07 &CT 11/07* Start: 11-02-2024 DIABETES SCREEN DIABETES SCREEN [facility] Start: 10-31-2024 End: 10-31-2024 Patient encounter procedure Cat Scan Comment on above: 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] Start: 10-23-2024 End: 10-23-2024 Patient encounter procedure 10/23/2024 3:00 PM EDT Office Visit Endocrinology [address] [place] [address] Delicia Díaz MD [address] [place] [address] Gynecomastia [N62] Endocrinology Comment on above: Gynecomastia [N62] Start: 10-20-2024 DIABETES SCREEN DIABETES SCREEN [facility] Start: 10-15-2024 Patient discharge [facility] Start: 10-07-2024 End: 01-06-2025 Basic metabolic 2000 panel - Serum or Plasma [facility] Comment on above: Expected: 10/07/2024, Expires: 5 Start: 10-07-2024 End: 07-09-2025 LIPID PANEL, NONFASTING [facility] Comment on above: Expected: 10/07/2024, Expires: 6 Start: 10-07-2024 End: 10-07-2024 Patient encounter procedure 10/07/2024 12:40 PM EDT Office Visit [facility] [address] [place] [address] Usha Mcgovern PA-C [address] [place] [address] 6 month follow up [facility] Comment on above: 6 month follow up Start: 10-04-2024 Annual PCP Team Chronic Disease Visit Annual PCP Team Chronic Disease Visit [facility] Start: 10-04-2024 Creatinine measurement Serum Creatinine [facility] Start: 10-04-2024 Hepatitis B surface antibody level LDL Cholesterol [facility] Start: 10-03-2024 DIABETES SCREEN DIABETES SCREEN [facility] Start: 09-22-2024 End: 09-22-2024 Patient encounter procedure 09/22/2024 7:20 AM EDT Office Visit Family [facility] [address] [place] [address] Yaw Singh MD [address] [place] [id number] Discuss MRI result and gynecomastia. [facility] Comment on above: Discuss MRI result and gynecomastia. Start: 09-17-2024 [facility] Start: 09-12-2024 Annual PCP Team Chronic Disease Visit Annual PCP Team Chronic Disease Visit [facility] Start: 09-12-2024 BP Controlled (<130/80) BP Controlled (<130/80) [facility] Start: 09-11-2024 End: 09-11-2024 Patient encounter procedure [facility] Comment on above: 6 month follow up Start: 09-08-2024 DIABETES SCREEN DIABETES SCREEN [facility] Start: 08-27-2024 End: 08-27-2024 Patient encounter procedure Mammogram Comment on above: Dx: Gynecomastia [N62]; Subareolar mass of right breast [N63.41]; Esophageal adenocarcinoma (HCC) [C15.9] Comp- Gynecomastia, Subareolar mass Rt; Esophageal adenocarcinoma Start: 08-24-2024 DIABETES SCREEN DIABETES SCREEN [facility] Start: 08-11-2024 DIABETES SCREEN DIABETES SCREEN [facility] Start: 07-27-2024 DIABETES SCREEN DIABETES SCREEN [facility] Start: 07-11-2024 BP Controlled (<130/80) BP Controlled (<130/80) [facility] Start: 06-30-2024 Anesthesia vascular shunt/shunt revision ANESTH VASCULAR SHUNT SURG [facility] Start: 06-30-2024 Arteriovenous anastomosis open direct AV FUSION DIRECT ANY SITE [facility] Start: 06-30-2024 End: 09-29-2024 Choriogonadotropin.beta subunit [Units/volume] in Serum or Plasma [facility] Comment on above: Expected: 06/30/2024, Expires: Start: 06-30-2024 End: 09-29-2024 Estradiol (E2) [Mass/volume] in Serum or Plasma [facility] Comment on above: Expected: 06/30/2024, Expires: Start: 06-30-2024 End: 09-29-2024 Follitropin [Units/volume] in Serum or Plasma [facility] Comment on above: Expected: 06/30/2024, Expires: Start: 06-30-2024 End: 09-29-2024 Lutropin [Units/volume] in Serum or Plasma [facility] Comment on above: Expected: 06/30/2024, Expires: Start: 06-30-2024 End: 09-29-2024 Prolactin [Mass/volume] in Serum or Plasma [facility] Comment on above: Expected: 06/30/2024, Expires: Start: 06-30-2024 End: 09-29-2024 Testosterone [Mass/volume] in Serum or Plasma [facility] Comment on above: Expected: 06/30/2024, Expires: Start: 06-30-2024 End: 09-29-2024 Thyrotropin [Units/volume] in Serum or Plasma [facility] Work Phone: Comment on above: Expected: 06/30/2024, Expires: Start: 06-30-2024 Patient discharge [facility] Start: 06-20-2024 End: 06-20-2024 Social Work 06/20/2024 10:30 AM EDT Social Work [facility] [address] [address] [address] [place] [address] PRE KID EVAL - PHONE CALL [facility] Comment on above: PRE KID EVAL - PHONE CALL Start: 06-18-2024 Annual PCP Team Chronic Disease Visit Annual PCP Team Chronic Disease Visit [facility] Start: 06-18-2024 Covid-19 Vaccine () Covid-19 Vaccine () [facility] Comment on above: Postponed from 12/08/2022 (Declined at t his time) Start: 06-18-2024 Hepatitis B surface antibody level LDL Cholesterol [facility] Start: 06-11-2024 End: 06-11-2024 ambulatory 06/11/2024 4:00 PM EST Results Only [facility] [address] [place] [address] lab [facility] Comment on above: lab Start: 06-11-2024 End: 09-10-2024 ALGN RABBIT EPITHELIUM IGE [facility] Comment on above: Expected: 06/11/2024, Expires: Start: 06-11-2024 End: 09-10-2024 BLOOD TB SCREEN [facility] Comment on above: Expected: 06/11/2024, Expires: Start: 06-11-2024 End: 09-10-2024 Chronic hepatitis differentiation between hepatitis B and C virus panel - Serum or Plasma [facility] Comment on above: Expected: 06/11/2024, Expires: Start: 06-11-2024 End: 09-10-2024 Comprehensive metabolic 2000 panel - Serum or Plasma [facility] Comment on above: Expected: 06/11/2024 (Approximate), Expi res: 09/10/2024 Start: 06-11-2024 End: 09-10-2024 Cytomegalovirus IgG Ab [Units/volume] in Serum or Plasma [facility] [employer] Work Phone: Comment on above: Expected: 06/11/2024, Expires: Start: 06-11-2024 End: 09-10-2024 Bety Marie virus capsid IgG Ab [Units/volume] in Serum [facility] Comment on above: Expected: 06/11/2024, Expires: Start: 06-11-2024 End: 09-10-2024 HEPATITIS A ANTIBODY, IGG [facility] Comment on above: Expected: 06/11/2024, Expires: Start: 06-11-2024 End: 09-10-2024 HIV 1+2 Ab [Presence] in Serum or Plasma by Immunoassay [facility] Comment on above: Expected: 06/11/2024, Expires: Start: 06-11-2024 End: 09-10-2024 Parathyrin.intact [Mass/volume] in Serum or Plasma [facility] Comment on above: Expected: 06/11/2024 (Approximate), Expi res: 09/10/2024 Start: 06-11-2024 End: 09-10-2024 Phosphate [Mass/volume] in Serum or Plasma [facility] Comment on above: Expected: 06/11/2024 (Approximate), Expi res: 09/10/2024 Start: 06-11-2024 End: 09-10-2024 Prostate Specific Ag Free [Mass/volume] in Serum or Plasma [facility] Comment on above: Expected: 06/11/2024 (Approximate), Expi res: 09/10/2024 Start: 06-11-2024 End: 09-10-2024 RUBEOLA (MEASLES)IGG [facility] Comment on above: Expected: 06/11/2024, Expires: Start: 06-11-2024 End: 09-10-2024 STRONGYLOIDES IGG BL [facility] Comment on above: Expected: 06/11/2024, Expires: Start: 06-11-2024 End: 09-10-2024 SYPHILIS TREPONEMAL W/REFLEX [facility] Comment on above: Expected: 06/11/2024, Expires: Start: 06-11-2024 End: 09-10-2024 TRANSPLANT CONFIRM ABO/RH [facility] Comment on above: Expected: 06/11/2024 (Approximate), Expi res: 09/10/2024 Start: 06-11-2024 End: 09-10-2024 TYPE + SCREEN [facility] Comment on above: Expected: 06/11/2024 (Approximate), Expi res: 09/10/2024 Start: 06-11-2024 End: 09-10-2024 VARICELLA ZOSTER IGG [facility] Comment on above: Expected: 06/11/2024, Expires: Start: 06-11-2024 End: 06-11-2024 Nutrition therapy 06/11/2024 9:45 AM EST Education Nutrition Therapy [address] [address] [address] Add[address], RD [address] [place] [address] pre kid eval Nutrition Therapy Comment on above: pre kid eval Start: 06-11-2024 End: 06-11-2024 Patient encounter procedure [facility] Comment on above: pre kid eval Start: 05-14-2024 End: 05-14-2024 Patient encounter procedure 05/14/2024 3:00 PM EST Office Visit Pulmonary Medicine [address] [place] [address] Helen Blair MD 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]; Closed wedge compression fracture of T10 vertebra with delayed healing, subsequent encounter [S22.070G] Radiology Comment on above: 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]; Closed wedge compression fracture of T10 vertebra with delayed healing, subsequent encounter [S22.070G] Start: 05-07-2024 Subsequent hospital visit by physician 05/07/2024 2:00 PM EST Hospital Encounter Radiology [address] [place], [place] [id number] 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] Radiology Comment on above: 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] Start: 05-06-2024 End: 05-06-2024 Patient encounter procedure 05/06/2024 2:30 PM EST Office Visit Pulmonary Medicine [facility] [place] [address] [place] [address] Helen Blair MD [address] [address] 3 month follow up Pulmonary Medicine Comment on above: 3 month follow up Start: 05-02-2024 End: 05-02-2024 ambulatory 05/02/2024 3:30 PM EST Visit (SP) Office Hematology/Oncology [address] [place], [place] [id number] Richard Jenkins, [address] [place], [place] [id number] 3 MO OV/LAB & CT 04/17* Hematology/Oncology Comment on above: 3 MO OV/LAB & CT 04/17* Start: 04-17-2024 End: 04-17-2024 ambulatory 04/17/2024 8:30 AM EST Visit (SP) Office Hematology/Oncology [address] [place] [address] Richard Jenkins DO [address] [place] [address] 3 MO OV/LAB & CT 04/10* Hematology/Oncology Comment on above: 3 MO OV/LAB & CT 04/10* Start: 04-10-2024 End: 04-10-2024 Patient encounter procedure Cat Scan Comment on above: 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] Start: 04-10-2024 End: 04-10-2024 ambulatory [facility] Comment on above: CREATININE(S)* CREATININE(S)/ coppe r level* CBC/RETIC/CREATININE (S)/ copper level* Start: 04-09-2024 Advance Directive Discussion Advance Directive Discussion [facility] Start: 03-30-2024 Annual PCP Team Chronic Disease Visit Annual PCP Team Chronic Disease Visit [facility] Start: 03-30-2024 BP Controlled (<130/80) BP Controlled (<130/80) [facility] Start: 03-30-2024 RSV Vaccine (1 - 1-dose 60+ series) RSV Vaccine (1 - 1-dose 60+ series) [facility] Comment on above: Postponed from 2014 (Insurance Cov era) Start: 03-30-2024 RSV Vaccine (1 - Risk 60-74 years 1-dose series) RSV Vaccine (1 - Risk 60-74 years 1-dose series) [facility] Comment on above: Postponed from 2014 (Insurance Cov erage) Start: 03-30-2024 Shingrix Vaccine (1 of 2) Shingrix Vaccine (1 of 2) [facility] Comment on above: Postponed from 2004 (Insurance Cov erage) Start: 03-12-2024 End: 12-04-2024 Patient encounter procedure 03/12/2024 8:00 AM EST Office Visit [facility] [address] [place] [address] Yaw Singh MD [address] [place] [address] Medicare wellness [facility] Comment on above: Medicare wellness Start: 03-11-2024 End: 06-10-2024 Comprehensive metabolic 2000 panel - Serum or Plasma COMPREHENSIVE METABOLIC PANEL Lab Routine Essential hypertension, benign Mixed hyperlipidemia CKD (chronic kidney disease) stage 4, GFR 15-29 ml/min ([facility]) Expected: 03/11/2024, Expires: 06/10/2024 [facility] Comment on above: Expected: 03/11/2024, Expires: Start: 03-11-2024 End: 06-10-2024 Hemoglobin A1c in Blood HEMOGLOBIN A1C Lab Routine Elevated blood sugar Expected: 03/11/2024, Expires: 06/10/2024 [facility] Comment on above: Expected: 03/11/2024, Expires: Start: 03-11-2024 End: 06-10-2024 LIPID PANEL, NONFASTING LIPID PANEL, NONFASTING Lab Routine Essential hypertension, benign Mixed hyperlipidemia Expected: 03/11/2024, Expires: 06/10/2024 [facility] [employer] Work Phone: Comment on above: Expected: 03/11/2024, Expires: Start: 03-11-2024 End: 06-10-2024 Magnesium [Mass/volume] in Serum or Plasma MAGNESIUM Lab Routine Gastroesophageal reflux disease, unspecified whether esophagitis present Medication management Expected: 03/11/2024, Expires: 06/10/2024 [facility] Comment on above: Expected: 03/11/2024, Expires: Start: 03-11-2024 End: 06-10-2024 Prostate specific Ag [Mass/volume] in Serum or Plasma PROSTATE-SPECIFIC ANTIGEN DIAGNOSTIC Lab Routine Prostate disorder Expected: 03/11/2024, Expires: 06/10/2024 [facility] Comment on above: Expected: 03/11/2024, Expires: Start: 03-11-2024 End: 06-10-2024 Thyrotropin [Units/volume] in Serum or Plasma THYROID STIMULATING HORMONE Lab Routine Cold intolerance Expected: 03/11/2024, Expires: 06/10/2024 [facility] Comment on above: Expected: 03/11/2024, Expires: Start: 03-11-2024 End: 03-11-2024 Patient encounter procedure 03/11/2024 9:40 AM EST Office Visit [facility] [address] [place], [place] [address] Yaw Singh MD [address] [place], [place] [id number] Medicare Wellness [facility] Comment on above: Medicare Wellness Start: 03-07-2024 End: 06-06-2024 CBC W Auto Differential panel - Blood COMPLETE BLOOD COUNT AND DIFFERENTIAL Lab Routine Iron deficiency anemia due to chronic blood loss Expected: 03/07/2024, Expires: 06/06/2024 [facility] Comment on above: Expected: 03/07/2024, Expires: Start: 03-07-2024 End: 06-06-2024 Cobalamin (Vitamin B12) [Mass/volume] in Serum or Plasma VITAMIN B12 Lab Routine Gastroesophageal reflux disease, unspecified whether esophagitis present Medication management Expected: 03/07/2024, Expires: 06/06/2024 [facility] Comment on above: Expected: 03/07/2024, Expires: Start: 03-07-2024 End: 06-06-2024 Comprehensive metabolic 2000 panel - Serum or Plasma COMPREHENSIVE METABOLIC PANEL Lab Routine Essential hypertension, benign Mixed hyperlipidemia Expected: 03/07/2024, Expires: 06/06/2024 [facility] Work Phone: Comment on above: Expected: 03/07/2024, Expires: Start: 03-07-2024 End: 06-06-2024 Iron and Iron binding capacity panel - Serum or Plasma IRON AND TIBC Lab Routine Iron deficiency anemia due to chronic blood loss Expected: 03/07/2024, Expires: 06/06/2024 [facility] Comment on above: Expected: 03/07/2024, Expires: Start: 03-07-2024 End: 06-06-2024 LIPID PANEL, NONFASTING LIPID PANEL, NONFASTING Lab Routine Essential hypertension, benign Mixed hyperlipidemia Coronary artery disease involving [place] coronary artery of [place] heart without angina pectoris Expected: 03/07/2024, Expires: 06/06/2024 [facility] Comment on above: Expected: 03/07/2024, Expires: Start: 03-07-2024 End: 06-06-2024 Magnesium [Mass/volume] in Serum or Plasma MAGNESIUM Lab Routine Gastroesophageal reflux disease, unspecified whether esophagitis present Medication management Expected: 03/07/2024, Expires: 06/06/2024 [facility] Comment on above: Expected: 03/07/2024, Expires: Start: 03-07-2024 End: 06-06-2024 Urinalysis complete panel - Urine URINALYSIS, WITH MICROSCOPIC Lab Routine Essential hypertension, benign Mixed hyperlipidemia Expected: 03/07/2024, Expires: 06/06/2024 [facility] Comment on above: Expected: 03/07/2024, Expires: Start: 02-20-2024 Annual PCP Team Chronic Disease Visit Annual PCP Team Chronic Disease Visit [facility] Start: 02-04-2024 End: 05-05-2024 Bacteria identified in Body fluid by Culture BODY FLUID CULTURE AND GRAM STAIN Microbiology Routine Pleural effusion Expected: 02/04/2024, Expires: 05/05/2024 [facility] Comment on above: Expected: 02/04/2024, Expires: Start: 02-04-2024 End: 05-05-2024 BODY FLUID CELL COUNT BODY FLUID CELL COUNT Lab Routine Pleural effusion Expected: 02/04/2024, Expires: 05/05/2024 [facility] Work Phone: Comment on above: Expected: 02/04/2024, Expires: Start: 02-04-2024 End: 05-05-2024 CYTOLOGY NON-BAG MACHINE OPERATOR HELPER CYTOLOGY NON-BAG MACHINE OPERATOR HELPER Lab Routine Pleural effusion Expected: 02/04/2024, Expires: 05/05/2024 [facility] Comment on above: Expected: 02/04/2024, Expires: Start: 02-04-2024 End: 05-05-2024 Glucose [Mass/volume] in Body fluid GLUCOSE, BODY FLUID Lab Routine Pleural effusion Expected: 02/04/2024, Expires: 05/05/2024 [facility] Comment on above: Expected: 02/04/2024, Expires: Start: 02-04-2024 End: 05-05-2024 Lactate dehydrogenase [Enzymatic activity/volume] in Body fluid LACTATE DEHYDROGENASE, BODY FLUID Lab Routine Pleural effusion Expected: 02/04/2024, Expires: 05/05/2024 [facility] Comment on above: Expected: 02/04/2024, Expires: Start: 02-04-2024 End: 05-05-2024 Lactate dehydrogenase [Enzymatic activity/volume] in Serum or Plasma LACTATE DEHYDROGENASE Lab Routine Pleural effusion Expected: 02/04/2024, Expires: 05/05/2024 [facility] Comment on above: Expected: 02/04/2024, Expires: Start: 02-04-2024 End: 05-05-2024 Microorganism identified in Unspecified specimen by Culture AFB CULT + STAIN Microbiology Routine Pleural effusion Expected: 02/04/2024, Expires: 05/05/2024 [facility] Comment on above: Expected: 02/04/2024, Expires: Start: 02-04-2024 End: 05-05-2024 pH of Body fluid PH BODY FLUID Lab Routine Pleural effusion Expected: 02/04/2024, Expires: 05/05/2024 [facility] Comment on above: Expected: 02/04/2024, Expires: Start: 02-04-2024 End: 05-05-2024 Protein [Mass/volume] in Body fluid PROTEIN, BODY FLUID Lab Routine Pleural effusion Expected: 02/04/2024, Expires: 05/05/2024 [facility] Comment on above: Expected: 02/04/2024, Expires: Start: 02-04-2024 End: 05-05-2024 Protein [Mass/volume] in Serum or Plasma PROTEIN, TOTAL Lab Routine Pleural effusion Expected: 02/04/2024, Expires: 05/05/2024 [facility] Comment on above: Expected: 02/04/2024, Expires: Start: 01-31-2024 End: 01-31-2024 Patient encounter procedure 01/31/2024 9:30 AM EDT Office Visit Pulmonary Medicine [address] [place] [address] Zachary Berkowitz APRN.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 [address] [place] [address] ?ASTHMA//6 month follow up Pulmonary Medicine Comment on above: ?ASTHMA//6 month follow up Start: 01-24-2024 End: 01-24-2024 Patient encounter procedure [facility]/ [facility] Comment on above: 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]; Early satiety [R68.81]; Nausea [R11.0] Start: 01-23-2024 End: 01-23-2024 Patient encounter procedure Pulmonary Medicine Comment on above: 6 month follow up ?ASTHMA//6 month fol low up Start: 01-17-2024 End: 01-17-2024 Patient encounter procedure [facility] Comment on above: 2 week follow up 2 week follow up - p t has not contacted office regarding his CBC and Iron. Letter was sent - Start: 01-15-2024 End: 04-15-2024 Cobalamin (Vitamin B12) [Mass/volume] in Serum or Plasma [facility] Comment on above: Expected: 01/15/2024, Expires: Start: 01-15-2024 End: 04-15-2024 COPPER BLOOD [facility] Comment on above: Expected: 01/15/2024, Expires: Start: 01-15-2024 End: 04-15-2024 Ferritin [Mass/volume] in Serum or Plasma [facility] Comment on above: Expected: 01/15/2024, Expires: Start: 01-15-2024 End: 04-15-2024 Folate [Mass/volume] in Serum or Plasma [facility] Comment on above: Expected: 01/15/2024, Expires: Start: 01-15-2024 End: 04-15-2024 Iron and Iron binding capacity panel - Serum or Plasma [facility] Work Phone: Comment on above: Expected: 01/15/2024, Expires: Start: 01-15-2024 End: 04-15-2024 Transferrin receptor.soluble [Mass/volume] in Serum or Plasma [facility] Comment on above: Expected: 01/15/2024, Expires: Start: 01-15-2024 End: 01-15-2024 ambulatory 01/15/2024 8:50 AM EDT Visit (SP) Office Hematology/Oncology [address] [place], [place] [phone] Richard Jenkins DO [address] [place], [place] [phone] 2MO OV * Hematology/Oncology Comment on above: 2MO OV * Start: 01-10-2024 End: 04-10-2024 CBC W Auto Differential panel - Blood COMPLETE BLOOD COUNT AND DIFFERENTIAL Lab Routine Anemia, unspecified type Expected: 01/10/2024, Expires: 04/10/2024 [facility] Work Phone: Comment on above: Expected: 01/10/2024, Expires: Start: 01-03-2024 End: 04-03-2024 Iron and Iron binding capacity panel - Serum or Plasma [facility] Work Phone: Comment on above: Expected: 01/03/2024, Expires: Start: 01-03-2024 End: 01-03-2024 Patient encounter procedure 01/03/2024 11:00 AM EDT Office Visit [facility] [address] [place], [place] [phone] Yaw Singh MD [address] [place] [address] Discharged from [facility] 12/27/23 - New dialysis, Respiratory Failure [facility] Comment on above: Discharged from [facility] 4 - New dialysis, Respiratory Failure Start: 01-02-2024 End: 01-02-2024 ambulatory 01/02/2024 11:30 AM EDT Visit (SP) Office Hematology/Oncology [address] [place] [id number] Richard Jenkins DO [address] [place] [address] 2MO OV * Hematology/Oncology Comment on above: 2MO OV * Start: 01-01-2024 End: 04-01-2024 CBC W Auto Differential panel - Blood COMPLETE BLOOD COUNT AND DIFFERENTIAL Lab Routine Excessive bleeding Expected: 01/01/2024, Expires: 04/01/2024 [facility] Work Phone: Comment on above: Expected: 01/01/2024, Expires: Start: 12-09-2023 Covid-19 Vaccine ( season) Covid-19 Vaccine ( season) [facility] Start: 12-09-2023 Covid-19 Vaccine ( season) Covid-19 Vaccine ( season) [facility] Start: 12-09-2023 Influenza vaccination Influenza Vaccine (#1) [facility] Start: 11-27-2023 End: 11-27-2023 Patient encounter procedure 11/27/2023 3:40 PM EDT Office Visit Endocrinology [address] [place] [phone] Delicia Díaz MD [address] [place] [phone] medication consult Endocrinology Comment on above: medication consult Start: 10-09-2023 End: 10-09-2023 Patient encounter procedure 10/09/2023 8:45 AM EDT Office Visit Pulmonary Medicine [address] [place] [address] Helen Blair MD 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 Physical Therapy [address] [place], [place] [address] Tye Flores, PT [address] [place] [address] S22.070D (ICD-10-CM) - Closed wedge compression fracture of T10 vertebra with routine healing, subsequent encounter [facility] Physical Therapy Comment on above: S22.070D (ICD-10-CM) - Closed wedge comp ression fracture of T10 vertebra with routine healing, subsequent encounter Start: 10-05-2023 End: 10-05-2023 Patient encounter procedure 10/05/2023 9:40 AM EDT Office Visit Family [facility] [place] [address] [place] [address] Yaw Singh MD [address] [place] [address] 6 month follow up [facility] [place] Comment on above: 6 month follow up Start: 10-04-2023 End: 10-04-2023 Patient encounter procedure 10/04/2023 7:40 AM EDT Office Visit Family [facility] [address] [place] [address] Danielle Kelly APRN.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 [address] [place] [address] 6 month follow up [facility] [place] Comment on above: 6 month follow up Start: 09-28-2023 End: 12-28-2023 Urinalysis complete panel - Urine URINALYSIS, WITH MICROSCOPIC Lab Routine Nephrolithiasis Expected: 09/28/2023, Expires: 12/28/2023 [facility] Comment on above: Expected: 09/28/2023, Expires: Start: 09-25-2023 End: 09-25-2023 Admission to same day surgery center 09/25/2023 12:30 PM EDT - 09/25/2023 1:49 PM EDT Surgery Angio [address] [place] [address] Luke Villalobos MD [address], [address] [address] BONE BIOPSY TROCAR/NEEDLE DEEP Angio Comment on above: BONE BIOPSY TROCAR/NEEDLE DEEP Start: 09-25-2023 End: 09-25-2023 Biopsy bone trocar/needle deep BONE BIOPSY TROCAR/NEEDLE DEEP Malignant 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) Abnormal MRI, spine 09/25/2023 12:30 PM EDT ANGIO HB6 Start: 09-25-2023 Subsequent hospital visit by physician 09/25/2023 12:30 PM EDT Hospital Encounter Angio [address] [place] [address] Luke Villalobos MD [address], [address] [address] 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 Physical Therapy [address] [place] [address] Tye Flores, PT [address] [place] [address] S22.070D (ICD-10-CM) - Closed wedge compression fracture of T10 vertebra with routine healing, subsequent encounter [facility] Physical Therapy Comment on above: S22.070D (ICD-10-CM) - Closed wedge comp ression fracture of T10 vertebra with routine healing, subsequent encounter Start: 09-18-2023 End: 12-18-2023 Basic metabolic 2000 panel - Serum or Plasma BASIC METABOLIC PANEL Lab Routine Elevated serum creatinine Expected: 09/18/2023, Expires: 12/18/2023 [facility] Work Phone: Comment on above: Expected: 09/18/2023, Expires: Start: 09-13-2023 End: 12-13-2023 Basic metabolic 2000 panel - Serum or Plasma [facility] Comment on above: Expected: 09/13/2023, Expires: Start: 09-13-2023 End: 12-13-2023 Natriuretic peptide.B prohormone N-Terminal [Mass/volume] in Serum or Plasma [facility] Comment on above: Expected: 09/13/2023, Expires: Start: 09-13-2023 End: 12-13-2023 Urinalysis complete panel - Urine [facility] Comment on above: Expected: 09/13/2023, Expires: Start: 09-10-2023 End: 09-10-2023 Patient encounter procedure 09/10/2023 8:40 AM EDT Appointment Radiology [address] [place] [address] Pathological fracture of thoracic vertebra, initial encounter [M84.48XA] Radiology Comment on above: Pathological fracture of thoracic verteb ra, initial encounter [M84.48XA] Start: 09-06-2023 End: 09-06-2023 ambulatory 09/06/2023 5:15 PM EDT OT/PT/Speech Visit [facility] Physical Therapy [address] [place] [address] Tye Flores, PT [address] [place] [address] back pain [facility] Therapy Comment on above: back pain Start: 08-30-2023 End: 08-30-2023 ambulatory 08/30/2023 5:15 PM EDT OT/PT/Speech Visit [facility] Physical Therapy [address] [place] [address] Tye Flores, PT [address] [place] [address] back pain [facility] Therapy Comment on above: back pain Start: 08-23-2023 End: 08-23-2023 ambulatory 08/23/2023 5:15 PM EDT OT/PT/Speech Visit [facility] Therapy [address] [place] [address] Tye Flores, PT [address] [place] [address] back pain [facility] Comment on above: back pain Start: 08-16-2023 End: 08-16-2023 ambulatory 08/16/2023 11:30 AM EDT OT/PT/Speech Visit [facility] Therapy [address] [place] [address] Tye Flores, PT [address] [place] [address] back pain [facility] Comment on above: back pain Start: 08-10-2023 ANNUAL PCP TEAM CHRONIC DISEASE VISIT ANNUAL PCP TEAM CHRONIC DISEASE VISIT [facility] Start: 08-10-2023 BP CONTROLLED (<130/80) BP CONTROLLED (<130/80) [facility] Start: 08-10-2023 COVID-19 VACCINE (#1) COVID-19 VACCINE (#1) [facility] Comment on above: Postponed from 1954 (Declined at t his time) Start: 08-10-2023 End: 08-10-2023 ambulatory 08/10/2023 10:00 AM EDT Visit (SP) Office Hematology/Oncology [address] [place] [address] Richard Jenkins DO [address] [place] [address] OV PER 07/19/23 TE/CT 08/02* Hematology/Oncology Comment on above: OV PER 07/19/23 TE/CT 08/02* Start: 08-03-2023 End: 11-02-2023 CREATININE BLD CREATININE BLD Lab STAT Malignant 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) Expected: 08/03/2023, Expires: 11/02/2023 [facility] Work Phone: Comment on above: Expected: 08/03/2023, Expires: Start: 08-03-2023 End: 08-03-2023 Patient encounter procedure Cat Scan Comment on above: 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] Start: 08-03-2023 End: 08-03-2023 ambulatory 08/03/2023 7:45 AM EDT Results Only [facility] [address] [place] [address] CREATININE(S)* [facility] Comment on above: CREATININE(S)* Start: 06-19-2023 End: 09-18-2023 Amylase [Enzymatic activity/volume] in Serum or Plasma [facility] Work Phone: Comment on above: Expected: 06/19/2023, Expires: Start: 06-19-2023 End: 09-18-2023 Comprehensive metabolic 2000 panel - Serum or Plasma [facility] Work Phone: Comment on above: Expected: 06/19/2023, Expires: 4 Start: 06-19-2023 End: 09-18-2023 Lipase [Enzymatic activity/volume] in Serum or Plasma [facility] Work Phone: Comment on above: Expected: 06/19/2023, Expires: 4 Start: 05-25-2023 BP CONTROLLED (<130/80) BP CONTROLLED (<130/80) [facility] Start: 04-09-2023 Advance Directive Discussion Advance Directive Discussion [facility] Start: 03-17-2023 BP CONTROLLED (<130/80) BP CONTROLLED (<130/80) [facility] Start: 02-20-2023 Hepatitis B surface antibody level LDL CHOLESTEROL [facility] Start: 02-09-2023 ANNUAL PCP TEAM CHRONIC DISEASE VISIT ANNUAL PCP TEAM CHRONIC DISEASE VISIT [facility] Start: 02-09-2023 BP CONTROLLED (<130/80) BP CONTROLLED (<130/80) [facility] Start: 02-09-2023 SHINGRIX VACCINE (1 of 2) SHINGRIX VACCINE (1 of 2) [facility] Comment on above: Postponed from 1973 (Insurance Cov erage) Postponed from 03/26 (Insurance Coverage) Start: 12-08-2022 Covid-19 Vaccine ( season) Covid-19 Vaccine ( season) [facility] Start: 12-08-2022 Influenza vaccination [facility] Start: 08-24-2022 BP CONTROLLED (<130/80) BP CONTROLLED (<130/80) [facility] Start: 08-09-2022 End: 10-09-2022 Basic metabolic 2000 panel - Serum or Plasma BASIC METABOLIC PNL Lab Routine Mixed hyperlipidemia Essential hypertension, benign Expected: 08/09/2022, Expires: 10/09/2022 [facility] Work Phone: Comment on above: Expected: 08/09/2022, Expires: 3 Start: 08-09-2022 End: 10-09-2022 CBC W Auto Differential panel - Blood CBC + DIFF Lab Routine Iron deficiency anemia due to chronic blood loss Expected: 08/09/2022, Expires: 10/09/2022 [facility] Work Phone: Comment on above: Expected: 08/09/2022, Expires: 3 Start: 08-09-2022 End: 10-09-2022 LIPID PANEL, NONFASTING LIPID PANEL, NONFASTING Lab Routine Mixed hyperlipidemia Expected: 08/09/2022, Expires: 10/09/2022 [facility] Work Phone: Comment on above: Expected: 08/09/2022, Expires: 3 Start: 07-27-2022 Hepatitis B surface antibody level LDL CHOLESTEROL [facility] Start: 07-19-2022 ANNUAL PCP TEAM CHRONIC DISEASE VISIT ANNUAL PCP TEAM CHRONIC DISEASE VISIT [facility] Start: 04-09-2022 ADVANCE DIRECTIVE DISCUSSION ADVANCE DIRECTIVE DISCUSSION [facility] Start: 02-09-2022 End: 04-11-2022 CBC W Auto Differential panel - Blood CBC + DIFF Lab Routine Iron deficiency anemia due to chronic blood loss Expected: 02/09/2022, Expires: 04/11/2022 [facility] [facility] [place] Work Phone: Comment on above: Expected: 02/09/2022, Expires: 3 Start: 02-09-2022 End: 04-11-2022 Cobalamin (Vitamin B12) [Mass/volume] in Serum or Plasma VITAMIN B12 BLOOD Lab Routine Gastroesophageal reflux disease, unspecified whether esophagitis present Medication management Expected: 02/09/2022, Expires: 04/11/2022 [facility] [place] Work Phone: Comment on above: Expected: 02/09/2022, Expires: 3 Start: 02-09-2022 End: 04-11-2022 Comprehensive metabolic 2000 panel - Serum or Plasma COMP METABOLIC PANEL Lab Routine Essential hypertension, benign Mixed hyperlipidemia Expected: 02/09/2022, Expires: 04/11/2022 [facility] [place] Work Phone: Comment on above: Expected: 02/09/2022, Expires: 3 Start: 02-09-2022 End: 04-11-2022 Iron and Iron binding capacity panel - Serum or Plasma IRON + TIBC Lab Routine Iron deficiency anemia due to chronic blood loss Expected: 02/09/2022, Expires: 04/11/2022 [facility] [place] Work Phone: Comment on above: Expected: 02/09/2022, Expires: 3 Start: 02-09-2022 End: 04-11-2022 LIPID PANEL, NONFASTING LIPID PANEL, NONFASTING Lab Routine Essential hypertension, benign Mixed hyperlipidemia Coronary artery disease involving s[place] coronary artery of [place] heart without angina pectoris Expected: 02/09/2022, Expires: 04/11/2022 [facility] [place] Work Phone: Comment on above: Expected: 02/09/2022, Expires: 3 Start: 02-09-2022 End: 04-11-2022 Magnesium [Mass/volume] in Serum or Plasma MAGNESIUM BLD Lab Routine Gastroesophageal reflux disease, unspecified whether esophagitis present Medication management Expected: 02/09/2022, Expires: 04/11/2022 [facility] [place] Work Phone: Comment on above: Expected: 02/09/2022, Expires: 3 Start: 02-09-2022 End: 04-11-2022 Prostate specific Ag [Mass/volume] in Serum or Plasma PSA/PROSTSPECAG DIAG Lab Routine Prostate disorder Expected: 02/09/2022, Expires: 04/11/2022 [facility] [place] Work Phone: Comment on above: Expected: 02/09/2022, Expires: 3 Start: 02-09-2022 End: 04-11-2022 Urinalysis complete panel - Urine URINALYSIS, WITH MICROSCOPIC Lab Routine Essential hypertension, benign Mixed hyperlipidemia Expected: 02/09/2022, Expires: 04/11/2022 [facility] [place] Work Phone: Comment on above: Expected: 02/09/2022, Expires: 3 Start: 01-07-2022 Hepatitis B surface antibody level LDL CHOLESTEROL [facility] Start: 12-08-2021 Influenza vaccination INFLUENZA (#1) [facility] Start: 07-16-2021 DTaP/Tdap/Td vaccine (2 - Td) DTaP/Tdap/Td vaccine (2 - Td) [place] Start: 04-09-2021 ADVANCE DIRECTIVE DISCUSSION ADVANCE DIRECTIVE DISCUSSION [facility] Start: 11-03-2020 BP CONTROLLED (<130/80) BP CONTROLLED (<130/80) [facility] Start: 04-16-2020 [facility] Start: 04-16-2020 Potassium monitoring Potassium monitoring [facility] [place] [facility] Start: 03-04-2020 Creatinine monitoring Creatinine monitoring [facility] Work Phone: Start: 03-04-2020 Potassium monitoring Potassium monitoring [facility] Work Phone: Start: 02-22-2020 Creatinine monitoring Creatinine monitoring [facility] Start: 02-22-2020 Potassium monitoring Potassium monitoring [facility] [place] [facility] Start: 12-26-2019 Annual Wellness Visit (AWV) Annual Wellness Visit (AWV) [facility] Start: 12-09-2019 Influenza vaccination Flu vaccine (#1) [facility] Start: 04-16-2019 End: 04-16-2019 Office Visit [facility] Start: 2019 Pneumococcal 65+ years Vaccine (2 of 2 - PPSV23) Pneumococcal 65+ years Vaccine (2 of 2 - PPSV23) [facility] Work Phone: Start: 03-12-2019 End: 03-12-2019 Office Visit 03/12/2019 Office Visit Cardiology 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, [employer]RO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 [address] [place] [address] [phone] [facility] Start: 03-05-2019 End: 03-05-2019 Appointment 03/05/2019 Appointment Radiology [facility] [address] Start: 03-03-2019 End: 03-03-2019 Appointment 03/03/2019 Appointment General Surgery Tyshawn Magallanes MD [address] [place] [address] [phone] Jp Zhao MD [address] [place] [address] [phone] [facility] General Surgery Start: 12-08-2018 Influenza vaccination Flu vaccine (#1) [facility] [place] [facility] Start: 07-20-2018 Creatinine monitoring Creatinine monitoring [facility] Start: 07-20-2018 Potassium monitoring Potassium monitoring [place] Start: 12-26-2017 FECAL OCCULT BLOOD FECAL OCCULT BLOOD [facility] Start: 12-26-2017 Screening for malignant neoplasm of colon Fecal Occult Blood [facility] Start: 2014 RSV Vaccine (1 - 1-dose 60+ series) RSV Vaccine (1 - 1-dose 60+ series) [facility] Start: 2014 RSV Vaccine (1 - Risk 60-74 years 1-dose series) RSV Vaccine (1 - Risk 60-74 years 1-dose series) [facility] Start: 2004 Shingles Vaccine (1 of 2) Shingles Vaccine (1 of 2) [place] Start: 2004 SHINGRIX VACCINE (1 of 2) SHINGRIX VACCINE (1 of 2) [facility] Start: 1999 COLOGUARD (FIT-DNA) COLOGUARD (FIT-DNA) [facility] Start: [address] COLONOGRAPHY [facility] Start: 1999 Screening for malignant neoplasm of colon [facility] Start: 1999 SIGMOIDOSCOPY SIGMOIDOSCOPY [facility] Start: 1994 Diabetes screen Diabetes screen [place], [place] Start: 1973 SHINGRIX VACCINE (1 of 2) SHINGRIX VACCINE (1 of 2) [facility] Start: 1972 Anxiety Screening Anxiety Screening [facility] Start: 1969 HIV screen HIV screen [place], [place] Start: 1969 HIV screening HIV screen [place] Start: 1966 COVID-19 VACCINE (1) COVID-19 VACCINE (1) [facility] Start: 1964 Lipid panel Lipid screen [place] Start: 1964 Lipid screen Lipid screen [place] Start: 1959 COVID-19 VACCINE (#1) COVID-19 VACCINE (#1) [facility] Start: 1954 COVID-19 VACCINE (#1) COVID-19 VACCINE (#1) [facility] Start: 1954 Hepatitis C screen Hepatitis C screen [place], [place] Start: 1954 Hepatitis C screening Hepatitis C screen [facility] [place] End: 02-21-2019 Bacteria identified Cx Nom (U) Urine Culture Microbiology Routine Nonrheumatic aortic valve stenosis 1 Occurrences starting 02/21/2019 until 02/21/2019 [facility] [employer] Comment on above: 1 Occurrences starting 02/21/2019 until 02/21/2019 Bacteria identified Cx Nom (U) Urine Culture Microbiology Routine Nonrheumatic aortic valve stenosis 02/21/2019 11:20 AM EST [facility] [place] Basic metabolic 2000 panel Basic Metabolic Panel Lab Routine Daily until discontinued starting 03/03/2019, 2 completed [facility] [place] Comment on above: Daily until discontinued starting 2018, 2 completed End: 12-07-2025 BD DXA TRABECULAR BONE SCORE (TBS) BD DXA TRABECULAR BONE SCORE (TBS) Radiology Routine Malignant 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) 1 Occurrences starting 11/07/2024 until 12/07/2025 [facility] Comment on above: 1 Occurrences starting 11/07/2024 until 12/07/2025 CBC CBC Lab Routine Daily until discontinued starting 03/03/2019, 2 completed [facility] [place] Comment on above: Daily until discontinued starting 2018, 2 completed End: 12-02-2022 Ct abdomen & pelvis w/contrast material CT ABD/PEL W IVCON Radiology Routine Malignant 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) 1 Occurrences starting 11/02/2021 until 12/02/2022 [facility] [place] Work Phone: Comment on above: 1 Occurrences starting 11/02/2021 until 12/02/2022 End: 09-21-2023 Ct abdomen & pelvis w/contrast material CT ABD/PEL W IVCON Radiology Routine Malignant 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) 1 Occurrences starting 08/22/2022 until 09/21/2023 [facility] [place] Work Phone: Comment on above: 1 Occurrences starting 08/22/2022 until 09/21/2023 Ct abdomen & pelvis w/contrast material CT ABD/PEL W IVCON Radiology Routine Malignant 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) 02/13/2023 10:14 AM EST [facility] [place] Work Phone: End: 08-17-2024 CT Abdomen and Pelvis W contrast IV CT ABD/PEL W IVCON Radiology Routine Malignant 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) 1 Occurrences starting 07/19/2023 until 08/17/2024 [facility] [place] Work Phone: Comment on above: 1 Occurrences starting 07/19/2023 until 08/17/2024 CT Abdomen and Pelvi s W contrast IV CT ABD/PEL W IVCON Radiology Routine Malignant 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) 08/03/2023 9:29 AM EDT [facility] End: 12-07-2025 CT Abdomen and Pelvis W contrast IV CT ABD/PEL W IVCON Radiology Routine Malignant 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) 1 Occurrences starting 11/07/2024 until 12/07/2025 [facility] Comment on above: 1 Occurrences starting 11/07/2024 until 12/07/2025 End: 02-13-2025 CT Abdomen and Pelvis WO contrast CT ABD/PEL WO IVCON Radiology Routine Malignant 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) 1 Occurrences starting 01/15/2024 until 02/13/2025 [facility] Comment on above: 1 Occurrences starting 01/15/2024 until 02/13/2025 CT Abdomen and Pelvi s WO contrast CT ABD/PEL WO IVCON Radiology Routine Malignant 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) 04/17/2024 2:21 PM [facility] End: 06-01-2025 CT Abdomen and Pelvis WO contrast CT ABD/PEL WO IVCON Radiology Routine Malignant 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) 1 Occurrences starting 05/02/2024 until 06/01/2025 [facility] Comment on above: 1 Occurrences starting 05/02/2024 until 06/01/2025 CT Abdomen and Pelvi s WO contrast CT ABD/PEL WO IVCON Radiology Routine Malignant 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) 10/31/2024 10:23 AM [facility] End: 08-17-2024 CT Chest W contrast IV CT CHEST W IVCON Radiology Routine Malignant 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) 1 Occurrences starting 07/19/2023 until 08/17/2024 [facility] [place] Work Phone: Comment on above: 1 Occurrences starting 07/19/2023 until 08/17/2024 CT Chest W contrast IV CT CHEST W IVCON Radiology Routine Malignant 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) 08/03/2023 9:29 AM EDT [facility] [place] Work Phone: End: 12-02-2022 CT CHEST W IVCON CT CHEST W IVCON Radiology Routine Malignant 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) 1 Occurrences starting 11/02/2021 until 12/02/2022 [facility] [place] Work Phone: Comment on above: 1 Occurrences starting 11/02/2021 until 12/02/2022 End: 09-21-2023 CT CHEST W IVCON CT CHEST W IVCON Radiology Routine Malignant 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) 1 Occurrences starting 08/22/2022 until 09/21/2023 [facility] [place] Work Phone: Comment on above: 1 Occurrences starting 08/22/2022 until 09/21/2023 CT CHEST W IVCON CT CHEST W IVCO N Radiology Routine Malignant 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) 02/13/2023 10:14 AM EST [facility] [place] Work Phone: End: 02-13-2025 CT Chest WO contrast CT CHEST WO IVCON Radiology Routine Malignant 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) 1 Occurrences starting 01/15/2024 until 02/13/2025 [facility] Comment on above: 1 Occurrences starting 01/15/2024 until 02/13/2025 CT Chest WO contrast CT CHEST WO IVCON Radiology Routine Malignant 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) 04/17/2024 2:21 PM EST [facility] [place] Work Phone: End: 06-01-2025 CT Chest WO contrast CT CHEST WO IVCON Radiology Routine Malignant 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) 1 Occurrences starting 05/02/2024 until 06/01/2025 [facility] [place] Work Phone: Comment on above: 1 Occurrences starting 05/02/2024 until 06/01/2025 CT Chest WO contrast CT CHEST WO IVCON Radiology Routine Malignant 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) 10/31/2024 10:23 AM EDT [facility] [place] Work Phone: DXA Bone [Mass/Area] Bone density [facility] End: 12-07-2025 DXA Skeletal system.axial Views for bone density DXA-AXIAL SKELETON Radiology Routine Malignant 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) Collapsed vertebra, not elsewhere classified, lumbar region, initial encounter for fracture (HCC) 1 Occurrences starting 11/07/2024 until 12/07/2025 [facility] [place] Work Phone: Comment on above: 1 Occurrences starting 11/07/2024 until 12/07/2025 ECG COMPLETE ECG COMPLETE ECG Routine Pre-transplant evaluation for kidney transplant 06/11/2024 3:54 PM EST [facility] End: 09-12-2024 Echocardiography ECHO Cardiology Routine Pleural effusion TRIPATHI (dyspnea on exertion) 1 Occurrences starting 09/13/2023 until 09/12/2024 [facility] [place] Work Phone: Comment on above: 1 Occurrences starting 09/13/2023 until 09/12/2024 End: 05-28-2024 EGD - THERAPEUTIC, EUS, OR TUBE INTERVENTIONS EGD - THERAPEUTIC, EUS, OR TUBE INTERVENTIONS Endoscopy Routine Malignant neoplasm of esophagus, unspecified location (HCC) 1 Occurrences starting 05/28/2023 until 05/28/2024 [facility] [place] Work Phone: Comment on above: 1 Occurrences starting 05/28/2023 until 05/28/2024 End: 08-04-2022 EGD DIAGNOSTIC EGD DIAGNOSTIC Endoscopy Routine Malignant 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) 1 Occurrences starting 08/04/2021 until 08/04/2022 [facility] [place] Work Phone: Comment on above: 1 Occurrences starting 08/04/2021 until 08/04/2022 End: 09-07-2022 EGD DIAGNOSTIC EGD DIAGNOSTIC Endoscopy Routine Malignant 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) 1 Occurrences starting 09/07/2021 until 09/07/2022 [facility] [place] Work Phone: Comment on above: 1 Occurrences starting 09/07/2021 until 09/07/2022 End: 11-09-2022 EGD DIAGNOSTIC EGD DIAGNOSTIC Endoscopy Routine Malignant 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) 1 Occurrences starting 11/09/2021 until 11/09/2022 [facility] [place] Work Phone: Comment on above: 1 Occurrences starting 11/09/2021 until 11/09/2022 EKG 12 lead [facility] Comment on above: Daily until discontinued starting 2018, 2 completed Guidance for percutaneous biopsy of Bone IMAGING GUIDED BIOPSY VERTEBRA OR FEMUR Radiology Routine Malignant 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) Abnormal MRI, spine Ordered: 09/14/2023 [facility] [place] Work Phone: Comment on above: Ordered: 09/14/2023 Guidance for thoracentesis of Chest IMAGING GUIDED THORACENTESIS Radiology Routine Pleural effusion Ordered: 02/04/2024 [facility] Comment on above: Ordered: 02/04/2024 Incentive spirometry Incentive s pirometry Respiratory Care Routine Every 2hr while awake until discontinued starting 03/03/2019 [facility] Comment on above: Every 2hr while awake until discontinued starting 03/03/2019 Influenza virus A an d B RNA and SARS-CoV-2 (COVID-19) N gene panel - Respiratory specimen by YEISON with probe detection COVID WITH FLUA+B, ROUTINE Microbiology Routine Acute cough Ordered: 03/17/2022 [facility] [place] Work Phone: Comment on above: Ordered: 03/17/2022 Initiate Oxygen Ther apy Protocol Initiate Oxygen Therapy Protocol Respiratory Care Routine Daily until discontinued starting 03/03/2019 [facility] [facility] Comment on above: Daily until discontinued starting 2018 End: 06-11-2025 KID K/P PANC REC INIT W/U KID K/P PANC REC INIT W/U ALLOGEN Routine Pre-transplant evaluation for kidney transplant 1 Occurrences starting 06/11/2024 until 06/11/2025 [facility] Comment on above: 1 Occurrences starting 06/11/2024 until 06/11/2025 KID K/P PANC REC INI T W/U KID K/P PANC REC INIT W/U ALLOGEN Routine Pre-transplant evaluation for kidney transplant 06/11/2024 4:13 PM EST [facility] End: 07-30-2025 MG Breast - bilateral Diagnostic ROCAEL DIAGNOSTIC BILATERAL Radiology Routine Gynecomastia Subareolar mass of right breast Esophageal adenocarcinoma (HCC) 1 Occurrences starting 06/30/2024 until 07/30/2025 [facility] Comment on above: 1 Occurrences starting 06/30/2024 until 07/30/2025 End: 09-08-2024 MR Thoracic spine WO and W contrast IV MRI THORACIC SPINE WO/W IVCON Radiology Routine Pathological fracture of thoracic vertebra, initial encounter 1 Occurrences starting 08/10/2023 until 09/08/2024 [facility] [place] Work Phone: Comment on above: 1 Occurrences starting 08/10/2023 until 09/08/2024 End: 06-01-2025 MR Thoracic spine WO and W contrast IV MRI THORACIC SPINE WO/W IVCON Radiology Routine Malignant 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) Closed wedge compression fracture of T10 vertebra with delayed healing, subsequent encounter 1 Occurrences starting 05/02/2024 until 06/01/2025 [facility] Comment on above: 1 Occurrences starting 05/02/2024 until 06/01/2025 End: 03-22-2024 Mri spinal canal thoracic w/o & w/contr matrl MRI THORACIC SPINE WO/W IVCON Radiology Routine Esophageal adenocarcinoma (HCC) Compression fracture of thoracic vertebra, unspecified thoracic vertebral level, initial encounter (HCC) 1 Occurrences starting 02/21/2023 until 03/22/2024 [facility] [place] Work Phone: Comment on above: 1 Occurrences starting 02/21/2023 until 03/22/2024 End: 07-18-2024 NM Biliary ducts and Gallbladder Views for patency of biliary structures and ejection fraction W sincalide and W radionuclide IV NM HEPATOBILIARY W EF AND/OR RX Radiology Routine RUQ pain Nausea 1 Occurrences starting 06/19/2023 until 07/18/2024 [facility] [place] Work Phone: Comment on above: 1 Occurrences starting 06/19/2023 until 07/18/2024 End: 04-27-2024 NM PET/CT SKULL-THIGH SUBSEQUENT NM PET/CT SKULL-THIGH SUBSEQUENT Radiology Routine Malignant 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) 1 Occurrences starting 03/29/2023 until 04/27/2024 [facility] [place] Work Phone: Comment on above: 1 Occurrences starting 03/29/2023 until 04/27/2024 Patient Education [facility] Work Phone: Patient referral [facility] Work Phone: PREPARE RBC (CROSSMATCH) [place], [place] End: 02-21-2019 PREPARE RBC (CROSSMATCH), 2 Units PREPARE RBC (CROSSMATCH), 2 Units Blood Bank Routine Nonrheumatic aortic valve stenosis 1 Occurrences starting 02/21/2019 until 02/21/2019 [place] Comment on above: 1 Occurrences starting 02/21/2019 until 02/21/2019 Pulse oximetry, continuous Pulse oximetry, continuous Respiratory Care Routine Every 4hr until discontinued starting 03/03/2019 [place] Comment on above: Every 4hr until discontinued starting RECIPIENT NOTIFICATION RECIPIENT NOTIFICATION ALLOGEN Routine Pre-transplant evaluation for kidney transplant Ordered: 06/11/2024 [facility] Comment on above: Ordered: 06/11/2024 End: 02-13-2025 RF Gastrointestinal tract upper Views W barium contrast PO XR UPPER GI SINGLE CONTRAST Radiology Routine Malignant 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) Early satiety Nausea 1 Occurrences starting 01/15/2024 until 02/13/2025 [facility] Comment on above: 1 Occurrences starting 01/15/2024 until 02/13/2025 SURGICAL PATHOLOGY [facility] [place] Work Phone: Comment on above: Release Upon Ordering for 1 Occurrences starting 09/07/2021, 1 completed SURGICAL PATHOLOGY SURGICAL PATH OLOGY Lab Routine Malignant neoplasm of esophagus, unspecified location (HCC) Pre-op exam Malignant 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) Essential hypertension, benign Mixed hyperlipidemia Coronary artery disease involving [place] coronary artery of [place] heart without angina pectoris Gastroesophageal reflux disease, unspecified whether esophagitis present Aortic valve stenosis, etiology of cardiac valve disease unspecified Release Upon Ordering for 1 Occurrences starting 06/05/2023 [facility] [place] Work Phone: Comment on above: Release Upon Ordering for 1 Occurrences starting 06/05/2023 End: 09-30-2022 Thyroxine (T4) free [Mass/volume] in Serum or Plasma T4 FREE/FREE THYROX Lab Routine Esophageal adenocarcinoma (HCC) Acquired hypothyroidism Iron deficiency anemia due to chronic blood loss Every other week for 26 Occurrences starting 09/30/2021 until 09/30/2022 [facility] [place] Work Phone: Comment on above: Every other week for 26 Occurrences star ting 09/30/2021 until 09/30/2022 End: 07-18-2024 US Abdomen RUQ US ABD RIGHT UPPER QUADRANT Radiology Routine RUQ pain Nausea 1 Occurrences starting 06/19/2023 until 07/18/2024 [facility] [place] Work Phone: Comment on above: 1 Occurrences starting 06/19/2023 until 07/18/2024 US Abdomen RUQ US ABD RIGHT UPP ER QUADRANT Radiology Routine RUQ pain Nausea 06/28/2023 11:15 AM EDT [facility] [place] Work Phone: End: 07-30-2025 US Breast - right limited US BREAST LTD RIGHT Radiology Routine Gynecomastia Subareolar mass of right breast Esophageal adenocarcinoma (HCC) 1 Occurrences starting 06/30/2024 until 07/30/2025 [facility] Comment on above: 1 Occurrences starting 06/30/2024 until 07/30/2025 End: 10-12-2024 XR Chest PA and Lateral XR CHEST 2V FRONTAL/LAT Radiology Routine Pleural effusion TRIPATHI (dyspnea on exertion) 1 Occurrences starting 09/13/2023 until 10/12/2024 [facility] Comment on above: 1 Occurrences starting 09/13/2023 until 10/12/2024 XR Chest PA and Lateral XR CHEST 2V FRONTAL/LAT Radiology Routine Pleural effusion TRIPATHI (dyspnea on exertion) 09/13/2023 8:13 AM EDT [facility] End: 11-07-2024 XR Chest PA and Lateral XR CHEST 2V FRONTAL/LAT Radiology Routine Pleural effusion 1 Occurrences starting 10/09/2023 until 11/07/2024 [facility] [place] Work Phone: Comment on above: 1 Occurrences starting 10/09/2023 until 11/07/2024 End: 03-01-2025 XR Chest PA and Lateral XR CHEST 2V FRONTAL/LAT Radiology Routine Pleural effusion 1 Occurrences starting 01/31/2024 until 03/01/2025 [facility] [place] Work Phone: Comment on above: 1 Occurrences starting 01/31/2024 until 03/01/2025 End: 01-31-2024 XR Chest PA and Lateral [facility] Comment on above: 1 Occurrences starting 01/31/2024 until 01/31/2024 End: 03-05-2025 XR Chest PA and Lateral XR CHEST 2V FRONTAL/LAT Radiology Routine Pleural effusion 1 Occurrences starting 02/04/2024 until 03/05/2025 [facility] Comment on above: 1 Occurrences starting 02/04/2024 until 03/05/2025 End: 02-13-2025 XR GI SMALL BOWEL FOLLOW-THRU XR GI SMALL BOWEL FOLLOW-THRU Radiology Routine Malignant 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) Early satiety Nausea 1 Occurrences starting 01/15/2024 until 02/13/2025 [facility] Comment on above: 1 Occurrences starting 01/15/2024 until 02/13/2025 End: 11-06-2025 XR Lumbar spine AP and Lateral and oblique XR LUMBAR PARS DEFECT 4V AP/LAT/BOTH OBL Radiology Routine Lumbar back pain 1 Occurrences starting 10/07/2024 until 11/06/2025 [facility] [place] Work Phone: Comment on above: 1 Occurrences starting 10/07/2024 until 11/06/2025 XR Lumbar spine AP a nd Lateral and oblique XR LUMBAR PARS DEFECT 4V AP/LAT/BOTH OBL Radiology Routine Lumbar back pain 10/07/2024 2:02 PM EDT [facility] Immunizations Immunization Date Immunization Notes Care Provider Les infante 08-19-2024 Hepatitis B vaccine (recombinant), CpG adjuvanted Yaw Smith APRN.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 Work Phone: [facility] 07-22-2024 Hepatitis B vaccine (recombinant), CpG adjuvanted Yaw Smith APRN.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 Work Phone: [facility] 06-17-2024 Hepatitis B vaccine (recombinant), CpG adjuvanted Yaw Smith APRN.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 Work Phone: [facility] 05-07-2024 tetanus and diphther ia toxoids, adsorbed, preservative free, for adult use (5 Lf of tetanus toxoid and 2 Lf of diphtheria toxoid) Edwin Montes APRN.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 Work Phone: [facility] 05-07-2024 TD(adult) unspecifie d formulation Edwin Montes APRN.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 Work Phone: [facility] [place] Work Phone: 04-22-2024 Hepatitis B vaccine (recombinant), CpG adjuvanted Maulik Aranda MD Work Phone: [facility] 02-18-2024 Hepatitis B vaccine (recombinant), CpG adjuvanted Maulik Aranda MD Work Phone: [facility] 02-01-2024 Seasonal, trivalent, recombinant, injectable influenza vaccine, preservative free Maulik Aradna MD Work Phone: [facility] 02-01-2024 influenza virus vaccine, unspecified formulation Usha Mcgovern PA-C Work Phone: [facility] 01-21-2024 Hepatitis B vaccine (recombinant), CpG adjuvanted Maulik Aranda MD Work Phone: [facility] 12-17-2023 Hepatitis B vaccine (recombinant), CpG adjuvanted Yaw Singh MD Work Phone: [facility] 12-11-2023 influenza, high dose seasonal, preservative-free Yaw Singh MD Work Phone: [facility] 11-30-2023 pneumococcal conjuga te (PCV20) vaccine, 20 valent (PREVNAR 20) Yaw Singh MD Work Phone: [facility] 03-30-2023 influenza (HD-IIV4) vaccine, age 65+ yr, high dose, quadrivalent, PF (FLUZONE HIGH-DOSE) Amos Rangel MD Work Phone: [facility] 03-30-2023 influenza virus vaccine, unspecified formulation Helen Blair MD Work Phone: [facility] 02-09-2022 influenza, high-dose , quadrivalent vaccine (FLUZONE HIGH DOSE QUADRIVALENT) Yaw Singh MD Work Phone: [facility] 02-09-2022 influenza virus vaccine, unspecified formulation Ct (I-Stat) Work Phone: [facility] 01-31-[address] Yaw Singh Work Phone: [facility] 01-31-2021 influenza, seasonal, injectable, preservative free Richard Jenkins DO Work Phone: [facility] 01-13-2021 influenza, high-dose , quadrivalent vaccine (FLUZONE HIGH DOSE QUADRIVALENT) Richard Jenkins DO Work Phone: [facility] 11-04-2019 pneumococcal polysaccharide vaccine, 23 valent Richard Jenkins DO Work Phone: [facility] 01-28-2018 Influenza, injectabl e, Madin Wales Canine Kidney, preservative free, quadrivalent Yaw Singh MD Work Phone: [facility] 01-28-2018 influenza, seasonal, injectable Richard Jenkins DO Work Phone: [facility] 01-28-2018 pneumococcal conjuga te vaccine, 13 valent Richard Mendezi DO Work Phone: [facility] 01-28-2018 tetanus toxoid, redu anahy diphtheria toxoid, and acellular pertussis vaccine, adsorbed Richard Goi DO Work Phone: [facility] 01-07-2018 influenza, injectabl e, quadrivalent, preservative free Yaw Singh MD Work Phone: [facility] 01-07-2018 tetanus toxoid, redu anahy diphtheria toxoid, and acellular pertussis vaccine, adsorbed Richard Mendezi DO Work Phone: [facility] 01-06-2017 influenza, injectabl e, quadrivalent, contains preservative Richard Goi DO Work Phone: [facility] 02-24-2016 influenza, injectabl e, quadrivalent, contains preservative Richard Goi DO Work Phone: [facility] 01-26-2015 influenza, injectabl e, quadrivalent, contains preservative Richard Goi DO Work Phone: [facility] 02-07-[address] Yaw Singh Work Phone: [facility] 02-07-2014 influenza, seasonal, injectable, preservative free Yaw Singh MD Work Phone: [facility] 07-17-2011 tetanus toxoid, redu anahy diphtheria toxoid, and acellular pertussis vaccine, adsorbed Richard Jenkins DO Work Phone: [facility] 01-21-2010 influenza virus vaccine, unspecified formulation Richard Jenkins DO Work Phone: [facility] 01-21-2010 pneumococcal polysaccharide vaccine, 23 valent Richard Jenkins DO Work Phone: [facility] 02-19-2009 influenza virus vaccine, unspecified formulation Richard Jenkins DO Work Phone: [facility] 02-02-2006 influenza virus vaccine, unspecified formulation Richard Jenkins DO Work Phone: [facility] Work Phone: Payers Date Payer Category Payer Self-pay [id number] 2019 Private Health Insurance MMO MED ICARE SUPPLEMENT Member Subscriber Plan / Payer (Effective 2019-Present) Name: Jacob Landa Relation to Subscriber: Self Name: Jacob Landa Payer ID: Not on file Type: Indemnity Address: [address] [id number] 2019 Unknown MMO MMO MEDICARE SUPPLEMENT [id number] 2019-Present [phone] [address] [place] [address] Indemnity [id number] 2019 Unknown MMO MMO MEDICARE SUPPLEMENT [id number] 2019-Present [phone] [address] [place] [address] Indemnity [id number] 2019 Unknown [id number] 2019 Medicare MEDICARE MEDICAR E A AND B [id number] 2019-Present [phone] [address] [address] [place] [address] Medicare [id number] 2019 Medicare [id number] 2019 Medicare [id number]. [id number] 2014 Unknown [id number] 2014 Unknown [employer] xxxxxxxxx 2014-Present [phone] [id number] [place] [address] xxxxxxxxx [id number] Unknown [id number] Unknown [id number] 2.16.840.1.635674.3.579.2. 462 Unknown [id number] 2.16.840.1.494986.3.579.2. 462 Unknown [id number] 2.16.840.1.089843.3.579.2. 462 Unknown [id number] 2.16.840.1.543608.3.579.2. 462 Unknown [id number] 2.16.840.1.863072.3.579.2. 462 Unknown [id number] 2.16.840.1.559021.3.579.2. 462 Unknown [id number] 2.16.840.1.648383.3.579.2. 462 Unknown [id number] 2.16840.1.732679.3.579.2. 462 Unknown [id number] 2.840.1.395071.3.579.2. 462 Unknown [id number] 2.840.1.000657.3.579.2. 462 Unknown [id number] 2.16.840.1.706707.3.579.2. 462 Unknown [id number] 2.16.840.1.408789.3.579.2. 462 Unknown [id number] 2.16.840.1.683725.3.579.2. 462 Unknown [id number] 2.16840.1.433691.3.579.2. 462 Unknown [id number] 2.16.840.1.150485.3.579.2. 462 Unknown [id number] 2.16.840.1.221825.3.579.2. 462 Unknown [id number] 2.16.840.1.640319.3.579.2. 462 Unknown [id number] 2.16.840.1.458791.3.579.2. 462 Unknown [id number] 2.16.840.1.506547.3.579.2. 462 Unknown [id number] 2.16.840.1.369985.3.579.2. 462 Unknown [id number] 2.16.840.1.589941.3.579.2. 462 Unknown [id number] 2.16.840.1.788433.3.579.2. 462 Unknown [id number] 2.840.1.976023.3.579.2. 462 Unknown [id number] 2.16.840.1.796873.3.579.2. 462 Social History Date Type Detail Facility Start: 02-18-2019 End: 10-23-2024 Tobacco smoking status NHIS Never smoker [facility] Start: 02-18-2019 End: 04-16-2019 Alcohol intake Current non-drinker of alcohol (finding) [facility] Sex Assigned At Not on file [facility] Start: 03-03-2020 End: 10-23-2024 Tobacco use and exposure Never used [facility] Start: 07-17-2021 End: 02-09-2022 Exposure to SARS-CoV-2 (event) Not sure [facility] Start: 07-27-2021 End: 11-14-2024 Alcohol intake Ex-drinker (finding) [facility] Start: 05-14-2020 History SDOH Alcohol Comment none [facility] Start: 1955 Sex Assigned At Male [facility] Start: 06-23-2022 Tobacco smoking stat us WAIS Unknown if ever smoked [facility] Start: 06-27-2014 None [facility] Start: 06-27-2014 Spouse/ Signif icant Other [facility] Start: 08-22-2022 End: 09-22-2024 History of Social function [facility] Start: 08-22-2022 End: 09-22-2024 Tobacco use panel [facility] Start: 03-10-2012 Adult Depression Screening Assessment 0 [facility] Start: 05-18-2020 Gender identity Identifies as male gender (finding) [facility] Start: 05-18-2020 Sexual orientation Heterosexual (louis christensen) [facility] How often to you hav e a drink containing alcohol? Never [facility] Start: 06-19-2024 End: 06-30-2024 Sex Male (finding) [facility] Has the [employer], [employer], [employer], or water company threatened to shut off services in your home in past 12Mo No [facility] (I/We) worried wheth er (my/our) food would run out before (I/we) got money to buy more. Never true [facility] NEGATED: Highlighted rowStart: NINF History of tobacco use Passive smoker [facility] Medical Equipment Procedure Code Equipment Code Equipment Original Text Equipment Identifier Dates Primary uncemented hemiarthroplasty of hip ([id number]) Uncoated hip femur prosthesis, one-piece ()[id number] FDA Start: 02-15-2024 Primary uncemented hemiarthroplasty of hip ([id number]) Uncoated hip femur prosthesis, one-piece ()[id number] FDA Start: 02-15-2024 Primary uncemented hemiarthroplasty of hip Coated hip femur prosthesis, modular ()[id number] FDA Start: 02-15-2024 Insertion, catheter, hemodialysis CATHETER,CVD PLNDRME 23CM FDA Start: 10-23-2023 Insertion, catheter, hemodialysis CATHETER,CVD PLNDRME 23CM FDA Start: 10-23-2023 Insertion, catheter, hemodialysis CATHETER,CVD PLNDRME 23CM FDA Start: 10-23-2023 Insertion, catheter, hemodialysis CATHETER,CVD PLNDRME 23CM FDA Start: 10-23-2023 Insertion, catheter, hemodialysis CATHETER,CVD PLNDRME 23CM FDA Start: 10-23-2023 Insertion, catheter, hemodialysis CATHETER,CVD PLNDRME 23CM FDA Start: 10-23-2023 Insertion, catheter, hemodialysis CATHETER,CVD PLNDRME 23CM FDA Start: 10-23-2023 Insertion, catheter, hemodialysis CATHETER,CVD PLNDRME 23CM FDA Start: 10-23-2023 Insertion, catheter, hemodialysis CATHETER,CVD PLNDRME 23CM FDA Start: 10-23-2023 Creation, AV fistula SUTURE,LIGA CLIP MED [id number] FDA Start: 06-30-2024 Creation, AV fistula SUTURE,LIGA CLIP MED LT200 FDA Start: 06-30-2024 Creation, AV fistula SUTURE,LIGA CLIP SM LT-100 FDA Start: 06-30-2024 Creation, AV fistula SUTURE,LIGA CLIP SM LT-100 FDA Start: 06-30-2024 Creation, AV fistula SUTURE,LIGA CLIP MED [id number] FDA Start: 06-30-2024 Creation, AV fistula SUTURE,LIGA CLIP MED LT200 FDA Start: 06-30-2024 Creation, AV fistula SUTURE,LIGA CLIP SM LT-100 FDA Start: 06-30-2024 Creation, AV fistula SUTURE,LIGA CLIP SM LT-100 FDA Start: 06-30-2024 Creation, AV fistula SUTURE,LIGA CLIP MED LT200 FDA Start: 06-30-2024 Creation, AV fistula SUTURE,LIGA CLIP MED [id number] FDA Start: 06-30-2024 Creation, AV fistula SUTURE,LIGA CLIP SM LT-100 FDA Start: 06-30-2024 Creation, AV fistula SUTURE,LIGA CLIP SM LT-100 FDA Start: 06-30-2024 Creation, AV fistula SUTURE,LIGA CLIP MED LT200 FDA Start: 06-30-2024 Creation, AV fistula SUTURE,LIGA CLIP MED LT200 FDA Start: 06-30-2024 Creation, AV fistula SUTURE,LIGA CLIP SM LT-100 FDA Start: 06-30-2024 Creation, AV fistula SUTURE,LIGA CLIP SM LT-100 FDA Start: 06-30-2024 Creation, AV fistula SUTURE,LIGA CLIP MED LT200 FDA Start: 06-30-2024 Creation, AV fistula SUTURE,LIGA CLIP MED LT200 FDA Start: 06-30-2024 Creation, AV fistula SUTURE,LIGA CLIP SM LT-100 FDA Start: 06-30-2024 Creation, AV fistula SUTURE,LIGA CLIP SM LT-100 FDA Start: 06-30-2024 Creation, AV fistula SUTURE,LIGA CLIP MED LT200 FDA Start: 06-30-2024 Creation, AV fistula SUTURE,LIGA CLIP MED LT200 FDA Start: 06-30-2024 Creation, AV fistula SUTURE,LIGA CLIP SM LT-100 FDA Start: 06-30-2024 Creation, AV fistula SUTURE,LIGA CLIP SM LT-100 FDA Start: 06-30-2024 Creation, AV fistula SUTURE,LIGA CLIP MED LT200 FDA Start: 06-30-2024 Creation, AV fistula SUTURE,LIGA CLIP MED LT200 FDA Start: 06-30-2024 Creation, AV fistula SUTURE,LIGA CLIP SM LT-100 FDA Start: 06-30-2024 Creation, AV fistula SUTURE,LIGA CLIP SM LT-100 FDA Start: 06-30-2024 Goals Date Patient Goal Desired Activity /State Personal health goal Functional Status Date Assessment Result Facility 08-16-2020 Are you deaf, or do you have serious difficulty hearing No 08/16/2020 1:11 PM EDT Ezekiel Vasques RN No [facility] 08-16-2020 Are you blind, or do you have serious difficulty seeing, even when wearing glasses No 08/16/2020 1:11 PM EDT Ezekiel Vasques RN No [facility] 08-16-2020 Do you have serious difficulty walking or climbing stairs No 08/16/2020 1:11 PM EDT Ezekiel Vasques RN No [facility] 08-16-2020 Do you have difficul ty dressing or bathing No 08/16/2020 1:11 PM EDT Ezekiel Vasques RN No [facility] 08-16-2020 Because of a physica l, mental, or emotional condition, do you have difficulty doing errands alone such as visiting a physician's office or shopping No 08/16/2020 1:11 PM EDT Ezekiel Vasques RN No [facility] Mental Status Date Assessment Result Facility 06-30-2024 Cognitive function Voice/Name [facility] Work Phone: 08-16-2020 Because of a physica l, mental, or emotional condition, do you have serious difficulty concentrating, remembering, or making decisions No 08/16/2020 1:11 PM EDT Ezekiel Vasques RN No [facility] Clinical Notes 03-03-2019 to 12-24-2024 Telephone Encounter - Usha Mcgovern PA-C - 12/24/2024 11:18 AM EDTTelephone Encounter - Usha Mcgvoern PA-C - 12/24/2024 11:18 AM Bobby Balbuena APRN.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 - 12/24/2024 10:29 AM EDT Note Date & Type Note Facility 12-24-2024 Telephone encounter Note Noted. [facility] 12-24-2024 Miscellaneous Notes Noted. He's scheduled for 01/05 already. Jannet Goldsmith MA See if patient wants to set up appt to discuss bone density results. Spoke with pt. Informed he needed to speak with his PCP or ordering physician to discuss how they want to manage his osteoporosis. Pt. Voiced understanding. Isa Godoy LPN Bone density demonstrated osteoporosis. He should speak to the ordering provider or his PCP about management of that. Richard Jenkins DO Reports printed and will be sent to scanning. Will place in Dr. Jenkins's mailbox for review. Elvira Noriega LPN Patient called stating he had bone density test at [facility] and from results, was informed to touch base with Dr. Jenkins to see if he would want further testing. documented in this encounter [facility] 12-24-2024 History of Present illness Narrative [facility] Landa is a 69 year old male. Patient presents with: Cough: Cough, sinus, congestion and runny nose x 3 weeks Cough The patient is a 69-year-old male presenting for evaluation of clear nasal drainage. Clear Nasal Drainage: - Clear nasal drainage, worse in the morning. - Coughing frequently to clear drainage. - Denies sinus pressure, dental pain, or chest heaviness. - Not taking any allergy medications currently. - Last antibiotic use was in September or October for a dog bite. Review of Systems Respiratory: Positive for cough. Ears/Nose/Mouth/Throat: (+) clear nasal drainage, (-) sinus pressure, (-) teeth pain Respiratory: (+) cough, (-) chest heaviness PAST MEDICAL HISTORY Diagnosis Date Advance directive discussed with patient 02/09/2022 Discussed 02/2022, packets provided Age related osteoporosis 12/23/2024 AK (actinic keratosis) 09/07/2020 One on the right forearm dorsal, three on the left forearm dorsal and one left side of face hear hair line about eye level. Tx cryo 09/2020 Aortic valve stenosis 07/26/2015 Ascending aorta dilation 09/21/2023 09/21/2023: 4.1cm Asthma (HCC) BPH (benign prostatic hyperplasia) 07/20/2014 Carpal tunnel syndrome of right wrist CKD (chronic kidney disease) stage 4, GFR 15-29 ml/min ([facility]) 01/03/2024 On dialysis and seeing Dr. Greenberg. Closed wedge compression fracture of T10 vertebra (HCC) 07/12/2023 Compression fracture of lumbar vertebra (HCC) 11/14/202411/2024: L1-L5 seen Dr Davila and referred to pain management. Coronary artery disease involving [place] coronary artery without angina pectoris Seeing Dr. Ludin GALVEZ (degenerative disc disease), lumbar 11/04/2019 Elevated blood sugar 03/11/2024 Esophageal adenocarcinoma (HCC) 08/09/2020 Essential hypertension, benign Family history of breast cancer 06/30/2024 Family history of ovarian cancer 06/30/2024 GERD (gastroesophageal reflux disease) 07/12/2009 Gynecomastia 09/22/2024 History of cerebral infarction 09/22/2024 MRI: 09/2024 small subacute left caudate lacunar infarct, small remote cortical infarcts in the right frontal lobe and left cerebellar hemisphere History of kidney stones 07/20/2014 Iron deficiency anemia due to chronic blood loss 05/25/2020 Iron malabsorption (HCC) 05/25/2020 Kidney stone Kyphosis (acquired) (postural) 07/30/[address] 03/11/2024 DPA: Lacho (step daughter) Malignant 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) 04/15/2020 Medicare annual wellness visit, subsequent 01/13/2021 Medical B eligibilty date 03/09/19 Date of last exam 01/13/2021 Mixed hyperlipidemia MRSA (methicillin resistant Staphylococcus aureus) 12/01/2016 treated with course of Linezolid beginning 10/29/16 Nonrheumatic aortic valve disorder On tube feeding diet 08/14/2020 History: 65 year old male s/p Adrián Roger esophagectomy, Pyloromyotomy, Jejunostomy tube placement for esophageal adenocarcinoma -Diet: Isosource 1.5 to 50 cc hour with 100 cc water flushes 8 times per day and Bene protein 3 times per day Removed 11/17/2020 Personal history of colonic polyps 12/27/2009 Rn Wound's nodules 03/30/2023 Will try pamelor Pleural effusion 03/11/2021 Stable in f/u studies. Pressure ulcer of unspecified buttock, stage 2 (HCC) 01/03/2024 Bilaterally. 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 4 07/23/2017 S/P TAVR (transcatheter aortic valve replacement) 04/30/2024 Needs dental prophylaxis. 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 Due to repeat anemia 01/01/2024 felt Eliquis could be stopped since risk did not out way benefit. Upper GI bleed 05/25/2020 PAST SURGICAL HISTORY Procedure Laterality Date ADENOIDECTOMY PRIMARY <AGE 11 Adenoidectomy AORTIC VALVE RECONSTRUCTION 03/03/2019 s/p TAVR BYP OTH/THN VEIN CAROTID-SUBCLAVIAN 2002 Bypass graft carotid subcl COLONOSCOPY FLX DX W/COLLJ SPEC WHEN PFRMD 02/28/2013 COLONOSCOPY FLX DX W/COLLJ SPEC WHEN PFRMD 12/06/2016 repeat in 5 yrs COLONOSCOPY SCRN NOT HIGH RISK 06/01/2020 COLONOSCOPY W/BIOPSY SINGLE/MULTIPLE 02/22/2007 Diminutive polyp distal [id number] ECHO 01/08/2021 EGD 04/15/2020 HEART CATHETERIZATION 12/2018 with 2 stents IMPLANT MESH OPN HERNIA RPR/DEBRIDEMENT CLOSURE 03/06/2007 LAPAROSCOPY SURG RPR INITIAL INGUINAL HERNIA 03/06/2007 umbilical NM CARDIAC STRESS TEST 01/08/2021 PAST SURGICAL HISTORY OF Right 2016 incision and drainage right axillary abscess REPAIR ANORECTAL FISTULA W/PLUG 12/06/2016 REPAIR FIRST ABDOMINAL WALL HERNIA 03/06/2007 right STENT - CORONARY 2015 x3 & x2 12/2018 TONSILLECTOMY PRIMARY/SECONDARY <AGE 11 Tonsillectomy TOT/SUB ESOPHAGECTOMY W/THORACOT 08/09/2020 [place] esophagectomy, jejunostomy tube placement TOTAL HIP REPLACEMENT Left 02/15/2024 ALLERGIES Seasonal Allergies MEDICATIONS ondansetron orally disintegrating (ZOFRAN ODT) 4 mg disintegrating tablet Take 1 tablet by mouth every 6 hours as needed for nausea/vomiting. GERMAN-CATY 0.8 mg tab Take 1 tablet by mouth once daily. oxyCODONE-acetaminophen (PERCOCET) 5-325 mg tablet Take 1 tablet by mouth every 6 hours as needed for pain. metoprolol tartrate, short acting, (LOPRESSOR) 25 mg tablet Take 1 tablet by mouth two times a day. atorvastatin (LIPITOR) 80 mg tablet Take 1 tablet by mouth daily at bedtime. methocarbamol (ROBAXIN) 500 mg tablet Take 1 tablet by mouth three times a day. aspirin, enteric coated (ADULT LOW DOSE ASPIRIN) 81 mg EC tablet Take 1 tablet by mouth once daily. OLANZapine (ZYPREXA) 2.5 mg tablet TAKE 1 TABLET BY MOUTH ONCE DAILY AT BEDTIME pantoprazole DR (PROTONIX) 40 mg tablet Take 1 tablet by mouth two times a day. ezetimibe (ZETIA) 10 mg tablet Take 1 tablet by mouth once daily. fluticasone (FLONASE) 50 mcg/actuation nasal spray Use 1 [place] in each nostril once daily. ferrous sulfate (SLOW FE) 137 mg (45 mg iron) TbER Take 1 tablet by mouth every other day. ascorbic acid, vitamin C, (VITAMIN C) 500 mg tablet Take 1 tablet by mouth every other day. acetaminophen (TYLENOL) 500 mg tablet Take 500 mg by mouth every 8 hours as needed for pain. fluticasone (FLONASE ALLERGY RELIEF) 50 mcg/actuation nasal spray Use 2 sprays in each nostril two times a day. cetirizine (ZYRTEC) 10 mg tablet Take 1 tablet by mouth once daily. doxycycline hyclate (VIBRAMYCIN) 100 mg capsule Take 1 capsule by mouth two times a day for 7 days. FAMILY HISTORY Problem Relation Age of Onset Cancer Mother OVARIAN AND THYROID CA Breast Cancer Mother Ischemic Heart Disease Father from Cerebral Hemmorrhage age 50 other (mva) Brother Cancer Sister Bone Marrow CA at 59 y/o Ischemic Heart Disease Sister 49 at 57y/o No Known Problems Sister Thyroid Sister Cancer Paternal Aunt cancer of colon other (unkown) Brother SOCIAL HISTORY[1] Objective BP 122/72 Pulse 79 Temp 36.7 C (98 F) (Tympanic) Resp 18 Wt 67.4 kg (148 lb 9.4 oz) SpO2 98% BMI 21.32 kg/m Physical Exam Constitutional: General: He is not in acute distress. Appearance: Normal appearance. He is normal weight. He is not ill-appearing or toxic-appearing. HENT: Right Ear: Tympanic membrane, ear canal and external ear normal. Left Ear: Tympanic membrane, ear canal and external ear normal. Nose: Congestion and rhinorrhea present. Mouth/Throat: Mouth: Mucous membranes are moist. Pharynx: No oropharyngeal exudate or posterior oropharyngeal erythema. Eyes: Extraocular Movements: Extraocular movements intact. Conjunctiva/sclera: Conjunctivae normal. Pupils: Pupils are equal, round, and reactive to light. Cardiovascular: Rate and Rhythm: Normal rate and regular rhythm. Pulses: Normal pulses. Heart sounds: Normal heart sounds. Pulmonary: Effort: Pulmonary effort is normal. Breath sounds: Normal breath sounds. Abdominal: General: Abdomen is flat. Bowel sounds are normal. There is no distension. Palpations: Abdomen is soft. There is no mass. Tenderness: There is no abdominal tenderness. There is no right CVA tenderness, left CVA tenderness, guarding or rebound. Hernia: No hernia is present. Neurological: Mental Status: He is alert. { 1. Chronic sinusitis, unspecified location (J32.9) 2. Seasonal allergic rhinitis, unspecified trigger (J30.2) - Clear postnasal drainage and frequent cough without sinus pressure or dental pain; lungs clear on exam. - Start Flonase (nasal corticosteroid) BID. - Start Zyrtec (cetirizine) daily; patient given 10mg but to cut in half for renal dose at 5mg. Patient states medication will last him longer. - Provided prescription for doxycycline to be used if no improvement after several days or if drainage changes color, indicating possible bacterial sinus infection. - Educated on the likely allergic etiology of symptoms and rationale for initial management with intranasal steroid and antihistamine prior to antibiotic use. - Follow up with PCP provider if symptoms perisit. Return with new or worsening symptoms. and Recording using [employer] software for draft documentation of the visit was discussed with the patient/authorized premium representative; all questions welcomed and answered. Patient/authorized premium representative agreed to proceed Differential Diagnoses - Allergic Rhinitis is more likely for the following reason(s): suggested by H&P - Pneumonia/acute cardiopulomonary process/mastoiditis is less likely for the following reason(s): H&P not suggestive Disposition The patient was discharged. [1] Social History Tobacco Use Smoking status: Never Passive exposure: Never Smokeless tobacco: Never Vaping Use Vaping status: Never Used Substance Use Topics Alcohol use: Not Currently Comment: none Drug use: No documented in this encounter [facility] 12-24-2024 Telephone encounter Note He's scheduled for 01/05 already. Jannet Goldsmith MA [facility] 12-23-2024 Telephone encounter Note See if patient wants to set up appt to discuss bone density results. [facility] 12-22-2024 Telephone encounter Note Spoke with pt. Informed he needed to speak with his PCP or ordering physician to discuss how they want to manage his osteoporosis. Pt. Voiced understanding. Isa Godoy LPN [facility] 12-22-2024 Telephone encounter Note Prescription Refill Information The patient has been identified by name and date of : Yes Caregiver verified no other encounters exist for this prescription request: Yes Caregiver confirmed with patient/requestor that no other refills are due, in the near future, with this provider at this time: Yes The last office visit in the department: 10/07/24 Does the patient have a future office visit with this provider/department: Yes, 01/05/25. Requested Prescriptions Pending Prescriptions Disp Refills ondansetron orally disintegrating (ZOFRAN ODT) 4 mg disintegrating tablet 30 tablet 1 Sig: Take 1 tablet by mouth every 6 hours as needed for nausea/vomiting. Jannet Goldsmith MA December 22, 2024 7:06 AM [facility] 12-22-2024 Miscellaneous Notes Prescription Refill Information The patient has been identified by name and date of : Yes Caregiver verified no other encounters exist for this prescription request: Yes Caregiver confirmed with patient/requestor that no other refills are due, in the near future, with this provider at this time: Yes The last office visit in the department: 10/07/24 Does the patient have a future office visit with this provider/department: Yes, 01/05/25. Requested Prescriptions Pending Prescriptions Disp Refills ondansetron orally disintegrating (ZOFRAN ODT) 4 mg disintegrating tablet 30 tablet 1 Sig: Take 1 tablet by mouth every 6 hours as needed for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 - 4.200 mIU/L 3.100 FSH 1.5 - 12.4 mIU/mL 21.7 (H) LH 1.8 - 10.8 mIU/mL 13.4 (H) Prolactin 4.1 - 25.1 ng/mL 72.8 (H) Testosterone 193 - 824 ng/dL 436 Estradiol 17B <38 pg/mL 25 Legend: (H) High MRI brain wo IV contrast: 09/08/24 No clear evidence of a pituitary adenoma within the constraints of the acquisition. ASSESSMENT : 69 year old male presenting due to elevated prolactin, FSH and LH levels in the presence of gynecomastia and chest tenderness. He also has a hx of ESRD on HD for the last 1 year No pituitary adenoma on MRI High prolactin can be due to olanzapine use in addition to ESRD on HD High FSH and LH can also be related to reduce clearance from ESRD while estradiol and T are metabolized differently Due to high levels of prolactin, chest tenderness is a possibility which is tolerable in his case I reviewed that we can use cabergoline if significant discomfort to lower prolactin levels but unsure how much this will be helpful because the build up can still be due to ESRD. And most likely the levels will be fluctuating He is okay with no intervention I will communicate by either mailing or electronically routing a copy of today's office note to the consulting physician Yaw Singh MD Medical Decision Making: Problems: Moderate: New problem with uncertain prognosis Data: Unique test result(s) reviewed: 3+ Medical Decision Making Level: 4 - Moderate Delicia Díaz MD Endocrinology Associate Staff [facility] Endocrinology and Metabolism [place] [phone] documented in this encounter [facility] 10-17-2024 Telephone encounter Note Patient notified Cristine Caceres MA [facility] 10-17-2024 Miscellaneous Notes Patient notified Cristine Caceres MA Let patient know I would be ok with him trying the back brace to see if it provides some relief. Patient calls to ask if he needs to schedule with [facility] since he is scheduled here on 11/20/2024. Notified patient that the appointment on 11/20/2204 is for pain management so should also schedule with [facility]. Patient also asking if it would be ok to trial a back brace until he is seen by specialists. He thought maybe that would help keep his pain under a little more control. Would like provider's recommendation. Patient reports he would just pick one up from the drug store if Dr. Singh thought it would be beneficial. Brandie Bailey RN documented in this encounter [facility] 10-17-2024 Telephone encounter Note Let patient know I would be ok with him trying the back brace to see if it provides some relief. [facility] 10-17-2024 Telephone encounter Note Patient calls to ask if he needs to schedule with [facility] since he is scheduled here on 11/20/2024. Notified patient that the appointment on 11/20/2204 is for pain management so should also schedule with [facility]. Patient also asking if it would be ok to trial a back brace until he is seen by specialists. He thought maybe that would help keep his pain under a little more control. Would like provider's recommendation. Patient reports he would just pick one up from the drug store if Dr. Singh thought it would be beneficial. Brandie Bailey RN [facility] 10-15-2024 History and physical note Note Date/Time October 15, 2024 10:25am [facility] Medical Records Department [address] [place] [address] History & Physical Exam 10/15/24 1022 MR#: [id number] Acct: [id number] Name: JACOB LANDA Rep #:[id number] : 1955 69 From: Nikita Jackson MD PCP: Dr. Yaw Singh MD Status:[facility] Location: [facility] HPI - General HPI Narrative JACOB LANDA, is a 69 M who presents with ESRD currently using a left upper arm AV fistula without issue. He has a prior left IJ tunneled catheter he is no longer using and presents for removal. [facility] Medical History Thrombocytopenia Wears glasses Cancer Cancer Pressure ulcer History of renal dialysis History of renal disease Injury of back History of GI bleed Gastric reflux Shortness of breath on exertion History of stress test History of echocardiogram Cardiology follow-up encounter Thrombus of venous dialysis catheter ESRD (end stage renal disease) on dialysis Acute respiratory insufficiency Medical non-compliance Acute exacerbation of chronic heart failure Chronic kidney disease (CKD) Pleural effusion Dyspnea Acute kidney injury Adenocarcinoma of esophagus LEELA (acute kidney injury) Non-smoker Esophageal carcinoma Atherosclerosis of coronary artery of [place] heart without angina pectoris 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 Essential (primary) hypertension Non-rheumatic aortic stenosis Syncope and collapse Hyperlipidemia Atherosclerotic heart disease of [place] coronary artery with other forms of angina pectoris Encounter for long-term current use of high risk medication abnormal stress test Angina pectoris Exertional chest pain Home Medications ?Medication ?Instructions ?Recorded ?Last Taken ?Type atorvastatin 80 mg tablet 80 mg PO QHS CHOLESTEROL #90 tabs 05/15/22 12/24/23 Rx ezetimibe 10 mg tablet 10 mg PO DAILY CHOLESTEROL # 90 tabs 05/15/22 12/24/23 Rx metoprolol tartrate 25 mg tablet 25 mg PO BID #0 tabs 10/25/23 06/30/24 05:30 Rx pantoprazole 40 mg tablet,delayed 40 mg PO BID #0 tabs 10/25/23 06/30/24 05:30 Rx release ferrous sulfate 325 mg (65 mg 325 mg PO DAILY #90 tabs 11/20/23 06/29/24 Rx iron) tablet polyethylene glycol 3350 17 17 g PO DAILY PRN constipa tion 12/04/23 Unknown History gram/dose oral powder (Miralax) ondansetron 4 mg disintegrating 4 mg PO Q8H PRN PRN na usea and 12/25/23 12/25/23 08:00 History tablet vomiting nitroglycerin 0.4 mg sublingual 0.4 mg sublingual PRN PRN angina 02/14/24 Unknown History tablet aspirin 81 mg chewable tablet 81 mg PO BID #0 tabs 01/3006/29/24 Rx acetaminophen 500 mg tablet 1,000 mg PO Q8 PRN pain Unknown History amoxicillin 500 mg tablet 2,000 mg (4 x 500 mg) PO ONC E #4 04/29/24 Unknown Rx tabs oxycodone 5 mg tablet 5 mg PO Q8H PRN pain 2 days #6 tabs 06/30/24 Unknown Rx oxycodone-acetaminophen 5 mg-325 1 tab PO Q6H PRN PRN pain 5 days 09/17/24 Unknown Rx mg tablet #20 TABLETS Allergy/AdvReac Type Severity Reaction Status Date / Time No Known Allergies Allergy Verified 09/17/24 17:30 Family History Father Heart disease Myocardial infarction Hypertension Brother Hypertension Sister Heart disease Myocardial infarction Surgical History History of hip replacement (~02/2024) History of cardiac catheterization History of esophagogastroduodenoscopy (EGD) Hx of surgical procedure History of aortic valve replacement (03/03/19) History of coronary artery stent placement (12/31/18) H/O coronary artery bypass surgery (09/18/02) History of tonsillectomy History of hernia repair Social History Smoking Status: Never smoker alcohol intake: never substance use type: does not use caffeine: No what type of physical activity do you participate in: walking frequency: daily ROS Constitutional Constitutional: Denies chills, fever(s), frequent falls, lethargy or weakness Eyes Eyes: Denies blind spots, change in vision or loss of vision ENT HEENT: Denies bleeding gums, hoarseness or sore throat Cardiovascular Cardiovascular: Denies abdominal pain, bluish discoloration of hand/feet, chest pain with activity, claudication, cold extremities, cyanosis, dyspnea on exertion, erythema on extremities, irregular heart rhythm, leg edema, leg ulcers, numbness in extremities or weakness in extremities Respiratory/Chest Respiratory/Chest: Denies cough, excessive phlegm production, shortness of breath at rest, shortness of breath with exertion or wheezing Gastrointestinal Gastrointestinal: Denies anorexia, change in stool character, constipation, diarrhea, melena or rectal bleeding Genitourinary Genitourinary: Denies dysuria or hematuria Musculoskeletal Musculoskeletal: Denies abnormal gait Integumentary Integumentary: Reports other Details: ; Denies erythema, non-healing lesions or wounds Neurologic Neurologic: Denies abnormal speech, focal weakness, headache(s), loss of vision,numbness, paresthesias or sensory deficit Hematologic/Lymphatic Hematologic/Lymphatic: Denies easy bleeding, easy bruising or lymphadenopathy Vital Signs Vital Signs Vital Signs: Weight Weight: 161 lb Body Mass Index (BMI) 23.8 Physical Exam Const alert, oriented x3, no apparent distress and healthy appearing General Appearance: cooperative; Negative for combative or lethargic Orientation / Consciousness: awake Exam Limitations: no limitations HEENT Head and Scalp: normocephalic and atraumatic Eyes EOMs intact bilaterally General Eye: normal appearance of both eyes Neck full ROM General: trachea midline Resp normal respiratory effort and no use of accessory muscles Effort and Inspection: Negative for labored, stridor or audible wheezes Cardio regular rate and regular rhythm Peripheral Pulses: brachial pulses present and radial pulses present Back/Spine Cervical Spine: cervical ROM normal Extremity full ROM, normal capillary refill and no clubbing, cyanosis or edema Skin no rashes or lesions noted and no wounds Neuro oriented x3, CN's II-XII intact bilaterally, no focal motor deficits and no sensory deficits noted Psych thought process normal, cooperative, affect normal, speech normal and activity/motor behavior normal Assessment & Plan Assessment/Plan (1) Tunneled central venous catheter present: PLAN: -remove catheter 10/15/24 1025 <Electronically signed by Nikita Jackson MD> Cosigner Signature (if applicable): CC: Dr. Nikita Jackson MD; Dr. Yaw Singh MD~ Signed [facility] Work Phone: [phone] 911-995607-09-2025 History and physical note [facility] Medical Records Department [address] [place] [address] History & Physical Exam 10/15/24 1022 MR#: [id number] Acct: [id number] Name: JACOB LANDA Rep #:[id number] : 1955 69 From: Nikita Jackson MD PCP: Dr. Yaw Singh MD Status:[facility] Location: [facility] HPI - General HPI Narrative JACOB LANDA, is a 69 M who presents with ESRD currently using a left upper arm AV fistula without issue. He has a prior left IJ tunneled catheter he is no longer using and presents for removal. [facility] Medical History Thrombocytopenia Wears glasses Cancer Cancer Pressure ulcer History of renal dialysis History of renal disease Injury of back History of GI bleed Gastric reflux Shortness of breath on exertion History of stress test History of echocardiogram Cardiology follow-up encounter Thrombus of venous dialysis catheter ESRD (end stage renal disease) on dialysis Acute respiratory insufficiency Medical non-compliance Acute exacerbation of chronic heart failure Chronic kidney disease (CKD) Pleural effusion Dyspnea Acute kidney injury Adenocarcinoma of esophagus LEELA (acute kidney injury) Non-smoker Esophageal carcinoma Atherosclerosis of coronary artery of [place] heart without angina pectoris 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 Essential (primary) hypertension Non-rheumatic aortic stenosis Syncope and collapse Hyperlipidemia Atherosclerotic heart disease of [place] coronary artery with other forms of angina pectoris Encounter for long-term current use of high risk medication abnormal stress test Angina pectoris Exertional chest pain Home Medications ?Medication ?Instructions ?Recorded ?Last Taken ?Type atorvastatin 80 mg tablet 80 mg PO QHS CHOLESTEROL #90 tabs 05/15/22 12/24/23 Rx ezetimibe 10 mg tablet 10 mg PO DAILY CHOLESTEROL # 90 tabs 05/15/22 12/24/23 Rx metoprolol tartrate 25 mg tablet 25 mg PO BID #0 tabs 10/25/23 06/30/24 05:30 Rx pantoprazole 40 mg tablet,delayed 40 mg PO BID #0 tabs 10/25/23 06/30/24 05:30 Rx release ferrous sulfate 325 mg (65 mg 325 mg PO DAILY #90 tabs 11/20/23 06/29/24 Rx iron) tablet polyethylene glycol 3350 17 17 g PO DAILY PRN constipa tion 12/04/23 Unknown History gram/dose oral powder (Miralax) ondansetron 4 mg disintegrating 4 mg PO Q8H PRN PRN na usea and 12/25/23 12/25/23 08:00 History tablet vomiting nitroglycerin 0.4 mg sublingual 0.4 mg sublingual PRN PRN angina 02/14/24 Unknown History tablet aspirin 81 mg chewable tablet 81 mg PO BID #0 tabs 01/3006/29/24 Rx acetaminophen 500 mg tablet 1,000 mg PO Q8 PRN pain Unknown History amoxicillin 500 mg tablet 2,000 mg (4 x 500 mg) PO ONC E #4 04/29/24 Unknown Rx tabs oxycodone 5 mg tablet 5 mg PO Q8H PRN pain 2 days #6 tabs 06/30/24 Unknown Rx oxycodone-acetaminophen 5 mg-325 1 tab PO Q6H PRN PRN pain 5 days 09/17/24 Unknown Rx mg tablet #20 TABLETS Allergy/AdvReac Type Severity Reaction Status Date / Time No Known Allergies Allergy Verified 09/17/24 17:30 Family History Father Heart disease Myocardial infarction Hypertension Brother Hypertension Sister Heart disease Myocardial infarction Surgical History History of hip replacement (~02/2024) History of cardiac catheterization History of esophagogastroduodenoscopy (EGD) Hx of surgical procedure History of aortic valve replacement (03/03/19) History of coronary artery stent placement (12/31/18) H/O coronary artery bypass surgery (09/18/02) History of tonsillectomy History of hernia repair Social History Smoking Status: Never smoker alcohol intake: never substance use type: does not use caffeine: No what type of physical activity do you participate in: walking frequency: daily ROS Constitutional Constitutional: Denies chills, fever(s), frequent falls, lethargy or weakness Eyes Eyes: Denies blind spots, change in vision or loss of vision ENT HEENT: Denies bleeding gums, hoarseness or sore throat Cardiovascular Cardiovascular: Denies abdominal pain, bluish discoloration of hand/feet, chest pain with activity,claudication, cold extremities, cyanosis, dyspnea on exertion, erythema on extremities, irregular heart rhythm, leg edema, leg ulcers, numbness in extremities or weakness in extremities Respiratory/Chest Respiratory/Chest: Denies cough, excessive phlegm production, shortness of breath at rest, shortness of breath with exertion or wheezing Gastrointestinal Gastrointestinal: Denies anorexia, change in stool character, constipation, diarrhea, melena or rectal bleeding Genitourinary Genitourinary: Denies dysuria or hematuria Musculoskeletal Musculoskeletal: Denies abnormal gait Integumentary Integumentary: Reports other Details: ; Denies erythema, non-healing lesions or wounds Neurologic Neurologic: Denies abnormal speech, focal weakness, headache(s), loss of vision,numbness, paresthesias or sensory deficit Hematologic/Lymphatic Hematologic/Lymphatic: Denies easy bleeding, easy bruising or lymphadenopathy Vital Signs Vital Signs Vital Signs: Weight Weight: 161 lb Body Mass Index (BMI) 23.8 Physical Exam Const alert, oriented x3, no apparent distress and healthy appearing General Appearance: cooperative; Negative for combative or lethargic Orientation / Consciousness: awake Exam Limitations: no limitations HEENT Head and Scalp: normocephalic and atraumatic Eyes EOMs intact bilaterally General Eye: normal appearance of both eyes Neck full ROM General: trachea midline Resp normal respiratory effort and no use of accessory muscles Effort and Inspection: Negative for labored, stridor or audible wheezes Cardio regular rate and regular rhythm Peripheral Pulses: brachial pulses present and radial pulses present Back/Spine Cervical Spine: cervical ROM normal Extremity full ROM, normal capillary refill and no clubbing, cyanosis or edema Skin no rashes or lesions noted and no wounds Neuro oriented x3, CN's II-XII intact bilaterally, no focal motor deficits and no sensory deficits noted Psych thought process normal, cooperative, affect normal, speech normal and activity/motor behavior normal Assessment & Plan Assessment/Plan (1) Tunneled central venous catheter present: PLAN: -remove catheter 10/15/24 1025 Cosigner Signature (if applicable): CC: Dr. Nikita Jackson MD; Dr. Yaw Singh MD~ Signed [facility]07-09-2025 [facility] Medical Records Department [address] [place] [address] History Physical Exam 10/15/24 1022 MR#: [id number] Acct: [id number] Name: JACOB LANDA Rep #: [id number] : 1955 69 From: Nikita Jackson MD PCP: Dr. Yaw Singh MD Status:[facility] Location: [facility] HPI - General HPI Narrative JACOB LANDA, is a 69 M who presents with ESRD currently using a left upper arm AV fistula without issue. He has a prior left IJ tunneled catheter he is no longer using and presents for removal. [facility] Medical History Thrombocytopenia Wears glasses Cancer Cancer Pressure ulcer History of renal dialysis History of renal disease Injury of back History of GI bleed Gastric reflux Shortness of breath on exertion History of stress test History of echocardiogram Cardiology follow-up encounter Thrombus of venous dialysis catheter ESRD (end stage renal disease) on dialysis Acute respiratory insufficiency Medical non-compliance Acute exacerbation of chronic heart failure Chronic kidney disease (CKD) Pleural effusion Dyspnea Acute kidney injury Adenocarcinoma of esophagus LEELA (acute kidney injury) Non-smoker Esophageal carcinoma Atherosclerosis of coronary artery of [place] heart without angina pectoris 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 Essential (primary) hypertension Non-rheumatic aortic stenosis Syncope and collapse Hyperlipidemia Atherosclerotic heart disease of [place] coronary artery with other forms of angina pectoris Encounter for long-term current use of high risk medication abnormal stress test Angina pectoris Exertional chest pain Home Medications ???Medication ???Instructions ???Recorded ???Last Taken ???Type atorvastatin 80 mg tablet 80 mg PO QHS CHOLESTEROL #90 tabs 05/15/22 12/24/23 Rx ezetimibe 10 mg tablet 10 mg PO DAILY CHOLESTEROL #90 tab s 05/15/22 12/24/23 Rx metoprolol tartrate 25 mg tablet 25 mg PO BID #0 tabs 10/25/2306/08 05:30 Rx pantoprazole 40 mg tablet,delayed 40 mg PO BID #0 tabs 10/25/23 05:30 Rx release ferrous sulfate 325 mg (65 mg 325 mg PO DAILY #90 tabs 11/20/23 06/29/24 Rx iron) tablet polyethylene glycol 3350 17 17 g PO DAILY PRN constipation Unknown History gram/dose oral powder (Miralax) ondansetron 4 mg disintegrating 4 mg PO Q8H PRN PRN nausea and 12/25/23 08:00 History tablet vomiting nitroglycerin 0.4 mg sublingual 0.4 mg sublingual PRN PRN angina 1 04/15/23 Unknown History tablet aspirin 81 mg chewable tablet 81 mg PO BID #0 tabs 02/17/2406/08 Rx acetaminophen 500 mg tablet 1,000 mg PO Q8 PRN pain 04/29/24 U nknown History amoxicillin 500 mg tablet 2,000 mg (4 x 500 mg) PO ONCE #4 0 04/29/24 Unknown Rx tabs oxycodone 5 mg tablet 5 mg PO Q8H PRN pain 2 days #6 tab s 06/30/24 Unknown Rx oxycodone-acetaminophen 5 mg-325 1 tab PO Q6H PRN PRN pain 5 days 0 09/17/24 Unknown Rx mg tablet #20 TABLETS Allergy/AdvReac Type Severity Reaction Status Date / Time No Known Allergies Allergy Verified 09/17/24 17:30 Family History Father Heart disease Myocardial infarction Hypertension Brother Hypertension Sister Heart disease Myocardial infarction Surgical History History of hip replacement ( 02/2024) History of cardiac catheterization History of esophagogastroduodenoscopy (EGD) Hx of surgical procedure History of aortic valve replacement (03/03/19) History of coronary artery stent placement (12/31/18) H/O coronary artery bypass surgery (09/18/02) History of tonsillectomy History of hernia repair Social History Smoking Status: Never smoker alcohol intake: never substance use type: does not use caffeine: No what type of physical activity do you participate in: walking frequency: daily ROS Constitutional Constitutional: Denies chills, fever(s), frequent falls, lethargy or weakness Eyes Eyes: Denies blind spots, change in vision or loss of vision ENT HEENT: Denies bleeding gums, hoarseness or sore throat Cardiovascular Cardiovascular: Denies abdominal pain, bluish discoloration of hand/feet, chest pain with activity, claudication, cold extremities, cyanosis, dyspnea on exertion, erythema on extremities, irregular heart rhythm, leg edema, leg ulcers, numbness in extremities or weakness in extremities Respiratory/Chest Respiratory/Chest: Denies cough, excessive phlegm production, shortness of breath at rest, shortness of breath with exertion or wheez (more content not included)...[facility]07-08-2025 Telephone encounter Note* Telephone Encounter - Krystina Quinones LPN - 10/14/2024 11:29 AM EDT Pt notified of Usha's message and instructions. Pt reports that he takes the Zetia but doesn't always take the Lipitor. Advised pt that he needs to be taking both. Pt verbalizes understanding. Krystina Quinones LPN [facility]07-08-2025 Miscellaneous Notes* Telephone Encounter - Krystina Quinones LPN - 10/14/2024 11:29 AM EDT Pt notified of Usha's message and instructions. Pt reports that he takes the Zetia but doesn't always take the Lipitor. Advised pt that he needs to be taking both. Pt verbalizes understanding. Krystina Quinones LPN * Telephone Encounter - Usha Mcgovern PA-C - 10/14/2024 7:28 AM EDT Labs are stable. LDL is slightly higher than goal. At 122 with goal under 70. Watch saturated fasts in diet and makesure taking the lipitor and zetia. * Telephone Encounter - Jannet Goldsmith MA - 10/13/2024 3:44 PM EDT Call to pt and notified him of results and recommendations below from Provider. Made pt aware office would fax over referral to [facility] and they would contact him to setup appt. Pt understood. Faxed all paperwork to [phone], updated referral in Epic. Pt asking about lab results he completed on 10/07/24. Notified pt I would route message to Provider. Jannet Goldsmith MA * Telephone Encounter - Usha Mcgovern PA-C - 10/13/2024 11:09 AM EDT Let patient know that his xray show multiple compression fractures. I will place consult to [facility] user support specialist to see if they recommend any other treatments. Continue with pain management as well. Usha Mcgovern PA-C documented in [facility] Telephone encounter Note * Telephone Encounter - Usha Mcgovern PA-C - 10/14/2024 7:28 AM EDT Labs are stable. LDL is slightly higher than goal. At 122 with goal under 70. Watch saturated fasts in diet and makesure taking the lipitor and zetia. [facility]07-07[facility] Telephone encounter Note* Telephone Encounter - Jannet Goldsmith MA - 10/13/2024 3:44 PM EDT Call to pt and notified him of results and recommendations below from Provider. Made pt aware office would fax over referral to [facility] and they would contact him to setup appt. Pt understood. Faxed all paperwork to [phone], updated referral in Epic. Pt asking about lab results he completed on 10/07/24. Notified pt I would route message to Provider. Jannet Goldsmith MA [facility]07-07-2025 Telephone encounter Note* Telephone Encounter - Usha Mcogvern PA-C - 10/13/2024 11:09 AM EDT Let patient know that his xray show multiple compression fractures. I [facility] place [facility] to see if they recommend any other treatments. Continue with pain management as well. Usha Mcgovern PA-C [facility]07-01-[facility]25 History of Present illness Narrative* Teresa Jeronimo RT(Bea) - 10/07/2024 1:40 PM EDT Radiology Service Progress Note PATIENT NAME: Jacob Landa DATE OF SERVICE: October 07, 2024 TIME: 1:41 PM PATIENT IDENTITY VERIFICATION COMPLETED USING TWO (2) IDENTIFIERS: Name and Date of confirmedby patient verbally. FALL SCREENING: Has the patient had 2 falls in the last year or 1 fall with injury or currently using an Ambulatory Assistive Device (Walker, Cane, Wheelchair, Crutches, etc.)? No PATIENT GENDER DATA: Assigned male at PATIENT RELEVANT IMPLANT DATA REVIEWED: Yes PATIENT PRESENTS WITH AN IMPLANTABLE OR ATTACHED SQL SSIS DEVELOPER: No RADIOLOGY DEPARTMENT: General X-ray: Exam(s) Completed: Spine X-Ray(s): Lumbar AP/LAT obliques PERIPHERAL IV DATA: Not applicable SIGNED BY: RT Isabell(Bea) October 07, 2024 1:41 PM documented in this encounterCommunity [facility] History of Present illness Narrative* Usah Mcgovern PA-C - 10/07/2024 12:47 PM EDT Chief Complaint Patient presents with: 6 Month Exam HPI Jacob Landa is a 69 year old male who presents here today for Chronic Medical Conditions.. Patient with hx of CAD, hyperlipidemia, aortic valve stenosis, asthma, GERD, esophageal cancer, DDD, depression, BPH and those as below. Acute Right-Sided Low Back Pain: - Onset yesterday morning after stepping out of a truck and twisting awkwardly. - Pain is sharp and stabbing, localized to the right lower back. - Pain level rated as 8/10 with certain movements, particularly twisting. - No pain at rest; pain is triggered by specific movements such as twisting or pulling phone from holster. - Denies numbness or tingling down the leg. - Denies spasms or tight, squeezing sensations. - Reports tightness and soreness in the morning, with minimal relief after moving around. - Recent history of similar back pain episodes in August and September. - Previous back pain x1-2 years, described as intermittent. - Recent ER visit for back pain; x-ray in August showed potential end plate compression deformity. - MRI earlier this year showed compression fractures at T10 and T11. - No physical therapy undertaken for back strengthening. - Previous use of Robaxin in provided some relief. Chronic Kidney Disease: - Under care of Dr. Scott, wire frame lamp shade maker. - On dialysis 3 times a week (Tuesdays, , and Saturdays). - On kidney transplant list. Coronary Artery Disease: - Under care of Dr. Noland, fiber optic assembly worker at [facility]. Vascular Disease: - Under care of Dr. Jackson, vascular specialist. - Upcoming appointment on the for port removal from chest. Denies: - Abnormal weight loss, fevers, fatigue, or weakness. - Swollen lymph nodes or lumps in neck. - Cough, wheezing, or dyspnea. - Chest pain or palpitations. - Headaches, numbness, tingling, seizures, or tremors. Past medical history, appointments, medications, allergies reviewed. Previous Medical History PAST MEDICAL HISTORY Diagnosis Date Advance directive discussed with patient 02/09/2022 Discussed 02/2022, packets provided AK (actinic keratosis) 09/07/2020 One on the right forearm dorsal, three on the left forearm dorsal and one left side of face hear hair line about eye level. Tx cryo 09/2020 Aortic valve stenosis 07/26/2015 Ascending aorta dilation 09/21/2023 09/21/2023: 4.1cm Asthma (HCC) BPH (benign prostatic hyperplasia) 07/20/2014 Carpal tunnel syndrome of right wrist CKD (chronic kidney disease) stage 4, GFR 15-29 ml/min ([facility]) 01/03/2024 On dialysis and seeing Dr. Greenberg. Closed wedge compression fracture of T10 vertebra (HCC) 07/12/2023 Coronary artery disease involving [place] coronary artery without angina pectoris Seeing Dr. Noland DDD (degenerative disc disease), lumbar 11/04/2019 Elevated blood sugar 03/11/2024 Esophageal adenocarcinoma (HCC) 08/09/2020 Essential hypertension, benign Family history of breast cancer 06/30/2024 Family history of ovarian cancer 06/30/2024 GERD (gastroesophageal reflux disease) 07/12/2009 Gynecomastia 09/22/2024 History of cerebral infarction 09/22/2024 MRI: 09/2024 small subacute left caudate lacunar infarct, small remote cortical infarcts in the right frontal lobe and left cerebellar hemisphere History of kidney stones 07/20/2014 Iron deficiency anemia due to chronic blood loss 05/25/2020 Iron malabsorption (HCC) 05/25/2020 Kidney stone Kyphosis (acquired) (postural) 07/30/[address] 03/11/2024 DPA: Lacho (step daughter) Malignant 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) 04/15/2020 Medicare annual wellness visit, subsequent 01/13/2021 Medical B eligibilty date 03/09/19 Date of last exam 01/13/2021 Mixed hyperlipidemia MRSA (methicillin resistant Staphylococcus aureus) 12/01/2016 treated with course of Linezolid beginning 10/29/16 Nonrheumatic aortic valve disorder On tube feeding diet 08/14/2020 History: 65 year old male s/p [place] Roger esophagectomy, Pyloromyotomy, Jejunostomy tube placement for esophageal adenocarcinoma -Diet: Isosource 1.5 to 50 cc hour with 100 cc water flushes 8 times per day and Bene protein 3 times per day Removed 11/17/2020 Personal history of colonic polyps 12/27/2009 Rn Wound's nodules 03/30/2023 Will try pamelor Pleural effusion 03/11/2021 Stable in f/u studies. Pressure ulcer of unspecified buttock, stage 2 ([facility]) 01/03/2024 Bilaterally. 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 4 07/23/2017 S/P TAVR (transcatheter aortic valve replacement) 04/30/2024 Needs dental prophylaxis. 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 Due to repeat anemia 01/01/2024felt Eliquis could be stopped since risk did not out way benefit. Upper GI bleed 05/25/2020 Previous Surgical History PAST SURGICAL HISTORY Procedure Laterality Date ADENOIDECTOMY PRIMARY <AGE 11 Adenoidectomy AORTIC VALVE RECONSTRUCTION 03/03/2019 s/p TAVR BYP OTH/THN VEIN CAROTID-SUBCLAVIAN 2003 Bypass graft carotid subcl COLONOSCOPY FLX DX W/COLLJ SPEC WHEN PFRMD 02/28/2013 COLONOSCOPY FLX DX W/COLLJ SPEC WHEN PFRMD 12/06/2016 repeat in 5 yrs COLONOSCOPY SCRN NOT HIGH RISK 06/01/2020 COLONOSCOPY W/BIOPSY SINGLE/MULTIPLE 02/22/2007 Diminutive polyp distal [id number] ECHO 01/08/2021 EGD 04/15/2020 HEART CATHETERIZATION 12/2018 with 2 stents IMPLANT MESH OPN HERNIA RPR/DEBRIDEMENT CLOSURE 03/06/2007 LAPAROSCOPY SURG RPR INITIAL INGUINAL HERNIA 03/06/2007 umbilical NM CARDIAC STRESS TEST 01/08/2021 PAST SURGICAL HISTORY OF Right 2016 incision and drainage right axillary abscess REPAIR ANORECTAL FISTULA W/PLUG 12/06/2016 REPAIR FIRST ABDOMINAL WALL HERNIA 03/06/2007 right STENT - CORONARY 2014 x3 & x2 12/2018 TONSILLECTOMY PRIMARY/SECONDARY <AGE 11 Tonsillectomy TOT/SUB ESOPHAGECTOMY W/THORACOT 08/09/2020 [place] esophagectomy, jejunostomy tube placement TOTAL HIP REPLACEMENT Left 02/15/2024 Family History FAMILY HISTORY Problem Relation Age of Onset Cancer Mother OVARIAN AND THYROID CA Breast Cancer Mother Ischemic Heart Disease Father from Cerebral Hemmorrhage age 50 other (mva) Brother Cancer Sister Bone Marrow CA at 59 y/o Ischemic Heart Disease Sister 49 at 57y/o No Known Problems Sister Thyroid Sister Cancer Paternal Aunt cancer of colon other (unkown) Brother Patient Allergies ALLERGIES Allergen Reactions Seasonal Allergies Other: See Comments Sneezing, watery eyes, runny nose. Current Medications Current Outpatient Medications on File Prior to Visit Medication Sig aspirin, enteric coated (ADULT LOW DOSE ASPIRIN) 81 mg EC tablet Take 1 tablet by mouth once daily. OLANZapine (ZYPREXA) 2.5 mg tablet TAKE 1 TABLET BY MOUTH ONCE DAILY AT BEDTIME ondansetron orally disintegrating (ZOFRAN ODT) 4 mg disintegrating tablet Take 1 tablet by mouth every 6 hours as needed for nausea/vomiting. pantoprazole DR (PROTONIX) 40 mg tablet Take 1 tablet by mouth two times a day. ezetimibe (ZETIA) 10 mg tablet Take 1 tablet by mouth once daily. atorvastatin (LIPITOR) 80 mg tablet Take 1 tablet by mouth daily at bedtime. metoprolol tartrate, short acting, (LOPRESSOR) 25 mg tablet Take 1 tablet by mouth two times a day. fluticasone (FLONASE) 50 mcg/actuation nasal spray Use 1 Hutchins in each nostril once daily. ferrous sulfate (SLOW FE) 137 mg (45 mg iron) TbER Take 1 tablet by mouth every other day. ascorbic acid, vitamin C, (VITAMIN C) 500 mg tablet Take 1 tablet by mouth every other day. acetaminophen (TYLENOL) 500 mg tablet Take 500 mg by mouth every 6 hours as needed. enteric contrast (will be provided with radiology test) For CT ABD/PEL W IVCON Routine order Administer, As Directed One Time Only, via Oral, Rectal, both Oral and Rectal, Enteric Tube, Stoma or Indwelling Catheter, Enteric Contrast as designated per enteric contrast guidelines (Patient not taking:Reported on 06/11/2024) No current facility-administered medications on file prior to visit. Social History Social History Tobacco Use Smoking status: Never Smokeless tobacco: Never Vaping Use Vaping status: Never Used Substance Use Topics Alcohol use: Not Currently Comment: none Drug use: No Review of Symptoms REVIEW OF SYSTEMS GENERAL: No weight loss, malaise or fevers NECK: Negative for lumps, goiter, pain and significant neck swelling RESPIRATORY: Negative for cough, hemoptysis, wheezing, COPD, dyspnea or shortness of breath CARDIOVASCULAR: Negative for chest pain, leg swelling, hypertension, CHF or palpitations NEURO: No history of headaches, syncope, paralysis, seizures or tremors SEE HPI EXAM: BP 98/60 (BP Site: Right Arm, BP Position: Sitting, BP Cuff Size: Regular Adult) Pulse 88 Temp 36.2 C (97.2 F) Resp 18 Wt 73 kg (161 lb) BMI 23.10 kg/m General Appearance: Well appearing, alert, in no acute distress, well-hydrated, well nourished.. Neck: Supple, no adenopathy; thyroid symmetric, normal size, no bruits. Lungs: Lungs clear to auscultation. No wheezing, rhonchi, rales.. Heart: RRR without murmur, gallop, or rubs. No ectopy. Extremities: No deformities, edema, skin discoloration, clubbing or cyanosis. Good capillary refill. . Musculoskeletal: no pain to palp of spine. +pain in paraspinous muscle on right side. Limited ROM due to pain. NVI . Peripheral Pulses: Normal. Health Maintenance List Shingrix Vaccine(1 of 2) Never done RSV Vaccine(1 - Risk 60-74 years 1-dose series) Never done Advance Directive Discussion due on 04/09/2024 Influenza Vaccine(1) due on 12/08/2024 Anxiety Screening due on 03/11/2025 LDL Cholesterol due on 04/17/2025 Colorectal Cancer Screening due on 06/01/2025 Serum Creatinine due on 06/11/2025 Hemoglobin/Hematocrit due on 06/11/2025 Annual PCP Team Chronic Disease Visit due on 09/22/2025 Diabetes Screening due on 06/12/2027 Lipid Screening due on 04/17/2029 DTaP,Tdap,Td Vaccine(5 - Td or Tdap) due on 05/07/2034 Hepatitis C Screening Completed Pneumococcal Vaccine: 50+ Completed Covid-19 Vaccine Discontinued Data reviewed N/a Assessment and Plan 1. Essential hypertension, benign (I10) - Clinically stable. - Continue current management. 2. Mixed hyperlipidemia (E78.2) - Ordered lipid panel. 3. Coronary artery disease involving [place] coronary artery of [place] heart without angina pectoris(I25.10) - Clinically stable. - Continue current management with cardiology 4. Esophageal adenocarcinoma (HCC) (C15.9) 5. Malignant 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) (C15.5) - Clinically stable. - Continue current management. - Continue with Hematology/oncology 6. CKD (chronic kidney disease) stage 4, GFR 15-29 ml/min (HCC) (N18.4) - Clinically stable. - Ordered BMP. - Continue dialysis three times weekly. - Follow-up with wire frame lamp shade maker . 7. 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 Jackson on 9 for port removal. 8. Benign prostatic hyperplasia, unspecified whether lower urinary tract symptoms present (N40.0) - Clinically stable. - Continue current management. 9. Acute bilateral low back pain without sciatica (M54.50) 10. Compression fracture of lumbar vertebra with routine healing, unspecified lumbar vertebral level, subsequent encounter (S32.000D) 11. Lumbar back pain (M54.50) 12. Closed wedge compression fracture of T10 vertebra with routine healing, subsequent encounter (S22.070D) - Recurrent acute low back pain with a history of compression fractures. - Ordered additional x-ray to evaluate for new compression fractures. - Re-prescribed Robaxin, to be taken as needed up to three times daily. - Referred to pain management for long-term symptom control. - Consideration for physical therapy pending x-ray results. 13. S/P TAVR (transcatheter aortic valve replacement) (Z95.2) - Clinically stable. - Continue current management. 14. Uncomplicated asthma, unspecified asthma severity, unspecified whether persistent (HCC) (J45.909) - Clinically stable. - Continue current management. 15. Iron malabsorption (HCC) (K90.9) Continue with Hematology/oncology Usha Mcgovern PA-C Recording using [employer] software for draft documentation of the visit was discussed with the patient/authorized premium representative; all questions welcomed and answered. Patient/authorized premium representative agreed to proceed documented in this encounterCommunity [facility]06-[facility]-2025 Telephone encounter Note * Telephone Encounter - Christiano Nolasco RN - 09/26/2024 4:56 PM EDT Pt called and is notified of providers results and instructions. Pt voices understanding. Transferred to scheduled to set up appt with Endocrinology. Christiano Nolasco RN [facility] Miscellaneous Notes* Telephone Encounter - Christiano Nolasco RN - 09/26/2024 4:56 PM EDT Pt called and is notified of providers results and instructions. Pt voices understanding. Transferred to scheduled to set up appt with Endocrinology. Christiano Nolasco RN * Telephone Encounter - Yaw Singh MD - 09/26/2024 11:53 AM EDT Let patient know I received input from our local coater brake linings and your recent labs and the gynecomastia. I would like for you to meet with her for further eval. She want to try to determine why the FSH, LH and prolactin are elevated and your testosterone level is normal. Order placed. documented in this encounterCommunity [facility] Center06-20-2025 Telephone encounter Note * Telephone Encounter - Yaw Singh MD - 09/26/2024 11:53 AM EDT Let patient know I received input from our local coater brake linings and your recent labs and the gynecomastia. I would like for you to meet with her for further eval. She want to try to determine why the FSH, LH and prolactin are elevated and your testosterone level is normal. Order placed. [facility] Instructions* Patient Instructions* Yaw Singh MD - 09/22/2024 7:42 AM EDT We discussed the tenderness and bumps you are experiencing: - These bumps are benign and may go away over time. Since they are only causing discomfort when touched, there is no immediate need for removal. However, surgical removal is an option if they become more bothersome. - You can try applying primrose oil to the skin for a couple of months to see if it reduces the pain. If the pain improves and the bumps do not grow, they can be left alone. - There is no discharge, redness, or other concerning signs around the area, which is reassuring. - I will send a message to our coater brake linings to ensure we are not missing anything based on your labs. If I receive any new information, I will let you know. We discussed your MRI results: - The MRI did not show any abnormalities in your pituitary gland, and there are no signs of a tumor. - The MRI did show evidence of a possible old stroke. This may have occurred during your illness last summer, even though imaging at that time did not show a stroke. Small strokes, such as lacunar infarcts, can be difficult to detect on initial imaging. - To reduce the risk of future strokes, continue taking a baby aspirin daily and your current medications, including Zetia and Lipitor. These have successfully lowered your LDL cholesterol to 52, which is below the target of 70. We discussed the bruising and firmness under your skin: - The bruising will likely fade within one to two weeks, but the firmness underneath may take one to two months to fully resolve. - This is in the tissue and poses no risk of breaking off or causing other problems. It is primarily a cosmetic issue and a nuisance. We discussed your sodium levels and SIADH: - Your sodium levels are normal (most recently 139), and there are no signs of SIADH (syndrome of inappropriate antidiuretic hormone). Follow-Up: - Continue your current medications, including baby aspirin, Zetia, and Lipitor, as prescribed. - Try primrose oil for the bumps if you wish to manage the discomfort. - If you notice any changes in the bumps, such as growth, increased pain, redness, or discharge, please let me know. - I will follow up with you if the coater brake linings provides any additional recommendations based onyour labs. Please reach out if you have any further questions or concerns. documented in this encounterCommunity [facility] Medical Center06-16-2025 History of Present illness Narrative* Yaw Singh MD - 09/22/2024 7:22 AM EDT Chief Complaint Patient presents with: Discussion HPI Jacob Landa is a 69 year old male who presents here today for discussion of results. . Jacob Landa is a 69-year-old male presenting for evaluation of breast masses and review of recentMRI and lab results. Jacob reports persistent tenderness in a breast mass, initially noted on the right side, with a similar mass now developing on the left side. The discomfort is primarily elicited by touch. He denies any visible changes in the mirror, nipple discharge, or erythema around the areolas. Recent lab results show a slightly elevated prolactin level and a luteinizing hormone level of 13.4mIU/mL (normal: 10.8 mIU/mL). FSH levels were also elevated. An MRI of the brain revealed no signs of a pituitary tumor but did show a possible old lacunar infarct. Jacob recalls a period of illness last summer, during which he was hospitalized and subsequently transferred to a alf. At thattime, a stroke was suspected but not confirmed by imaging. He is currently taking a baby aspirin daily. The MRI also noted that the posterior pituitary gland was not visualized, a finding that can be nonspecific but is sometimes seen in SIADH. However, Jacob has no history of hyponatremia, with recent sodium levels consistently between 138-140 mEq/L. Jacob also inquires about a subcutaneous hematoma that developed a week ago Sunday, following a fistula procedure in [place]. He describes the area as feeling firm and causing "wrinkles" in the skin. Office visit 06/2023 Has felt a lump in the right breast. No fevers, chills, nipple discharge, skin dimpling. No new meds. No blood from the nipple. The lump has been tender. Patient with hx of CAD, hyperlipidemia, aortic valve stenosis, asthma, GERD, esophageal cancer, DDD, depression, BPH and those as below. Mom had breast cancer and ovarian cancer. Patient quentin noticed that when he sits he sometimes gets burning pain in his butt were he had the skin ulcers. He hs gotten a gel pad to sit on and this as improved this sensation a lot. Past medical history, appointments, medications, allergies reviewed. Previous Medical History PAST MEDICAL HISTORY Diagnosis Date Advance directive discussed with patient 02/09/2022 Discussed 02/2022, packets provided AK (actinic keratosis) 09/07/2020 One on the right forearm dorsal, three on the left forearm dorsal and one left side of face hear hair line about eye level. Tx cryo 09/2020 Aortic valve stenosis 07/26/2015 Ascending aorta dilation 09/21/2023 09/21/2023: 4.1cm Asthma (HCC) BPH (benign prostatic hyperplasia) 07/20/2014 Carpal tunnel syndrome of right wrist CKD (chronic kidney disease) stage 4, GFR 15-29 ml/min (HCC) 01/03/2024 On dialysis and seeing Dr. Greenberg. Closed wedge compression fracture of T10 vertebra (HCC) 07/12/2023 Coronary artery disease involving [place] coronary artery without angina pectoris Seeing Dr. Noland DDD (degenerative disc disease), lumbar 11/04/2019 Elevated blood sugar 03/11/2024 Esophageal adenocarcinoma (HCC) 08/09/2020 Essential hypertension, benign Family history of breast cancer 06/30/2024 Family history of ovarian cancer 06/30/2024 GERD (gastroesophageal reflux disease) 07/12/2009 Gynecomastia 09/22/2024 History of cerebral infarction 09/22/2024 MRI: 09/2024 small subacute left caudate lacunar infarct, small remote cortical infarcts in the right frontal lobe and left cerebellar hemisphere History of kidney stones 07/20/2014 Iron deficiency anemia due to chronic blood loss 05/25/2020 Iron malabsorption (HCC) 05/25/2020 Kidney stone Kyphosis (acquired) (postural) 07/30/[address] 03/11/2024 DPA: Lacho (step daughter) Malignant 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) 04/15/2020 Medicare annual wellness visit, subsequent 01/13/2021 Medical B eligibilty date 03/09/19 Date of last exam 01/13/2021 Mixed hyperlipidemia MRSA (methicillin resistant Staphylococcus aureus) 12/01/2016 treated with course of Linezolid beginning 10/29/16 Nonrheumatic aortic valve disorder On tube feeding diet 08/14/2020 History: 65 year old male s/p [place] esophagectomy, Pyloromyotomy, Jejunostomy tube placement for esophageal adenocarcinoma -Diet: Isosource 1.5 to 50 cc hour with 100 cc water flushes 8 times per day and Bene protein 3 times per day Removed 11/17/2020 Personal history of colonic polyps 12/27/2009 Rn Wound's nodules 03/30/2023 Will try pamelor Pleural effusion 03/11/2021 Stable in f/u studies. Pressure ulcer of unspecified buttock, stage 2 (HCC) 01/03/2024 Bilaterally. 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 4 07/23/2017 S/P TAVR (transcatheter aortic valve replacement) 04/30/2024 Needs dental prophylaxis. 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 Due to repeat anemia 01/01/2024felt Eliquis could be stopped since risk did not out way benefit. Upper GI bleed 05/25/2020 Previous Surgical History PAST SURGICAL HISTORY Procedure Laterality Date ADENOIDECTOMY PRIMARY <AGE 11 Adenoidectomy AORTIC VALVE RECONSTRUCTION 03/03/2019 s/p TAVR BYP OTH/THN VEIN CAROTID-SUBCLAVIAN 2002 Bypass graft carotid subcl COLONOSCOPY FLX DX W/COLLJ SPEC WHEN PFRMD 02/28/2013 COLONOSCOPY FLX DX W/COLLJ SPEC WHEN PFRMD 12/06/2016 repeat in 5 yrs COLONOSCOPY SCRN NOT HIGH RISK 06/01/2020 COLONOSCOPY W/BIOPSY SINGLE/MULTIPLE 02/22/2007 Diminutive polyp distal [id number] ECHO 01/08/2021 EGD 04/15/2020 HEART CATHETERIZATION 12/2018 with 2 stents IMPLANT MESH OPN HERNIA RPR/DEBRIDEMENT CLOSURE 03/06/2007 LAPAROSCOPY SURG RPR INITIAL INGUINAL HERNIA 03/06/2007 umbilical NM CARDIAC STRESS TEST 01/08/2021 PAST SURGICAL HISTORY OF Right 2016 incision and drainage right axillary abscess REPAIR ANORECTAL FISTULA W/PLUG 12/06/2016 REPAIR FIRST ABDOMINAL WALL HERNIA 03/06/2007 right STENT - CORONARY 2014 x3 & x2 12/2018 TONSILLECTOMY PRIMARY/SECONDARY <AGE 11 Tonsillectomy TOT/SUB ESOPHAGECTOMY W/THORACOT 08/09/2020 [place] esophagectomy, jejunostomy tube placement TOTAL HIP REPLACEMENT Left 02/15/2024 Family History FAMILY HISTORY Problem Relation Age of Onset Cancer Mother OVARIAN AND THYROID CA Breast Cancer Mother Ischemic Heart Disease Father from Cerebral Hemmorrhage age 50 other (mva) Brother Cancer Sister Bone Marrow CA at 59 y/o Ischemic Heart Disease Sister 49 at 57y/o No Known Problems Sister Thyroid Sister Cancer Paternal Aunt cancer of colon other (unkown) Brother Patient Allergies ALLERGIES Allergen Reactions Seasonal Allergies Other: See Comments Sneezing, watery eyes, runny nose. Current Medications Current Outpatient Medications on File Prior to Visit Medication Sig OLANZapine (ZYPREXA) 2.5 mg tablet TAKE 1 TABLET BY MOUTH ONCE DAILY AT BEDTIME ondansetron orally disintegrating (ZOFRAN ODT) 4 mg disintegrating tablet Take 1 tablet by mouth every 6 hours as needed for nausea/vomiting. pantoprazole DR (PROTONIX) 40 mg tablet Take 1 tablet by mouth two times a day. ezetimibe (ZETIA) 10 mg tablet Take 1 tablet by mouth once daily. atorvastatin (LIPITOR) 80 mg tablet Take 1 tablet by mouth daily at bedtime. metoprolol tartrate, short acting, (LOPRESSOR) 25 mg tablet Take 1 tablet by mouth two times a day. fluticasone (FLONASE) 50 mcg/actuation nasal spray Use 1 Hutch[place] in each nostril once daily. ferrous sulfate (SLOW FE) 137 mg (45 mg iron) TbER Take 1 tablet by mouth every other day. ascorbic acid, vitamin C, (VITAMIN C) 500 mg tablet Take 1 tablet by mouth every other day. enteric contrast (will be provided with radiology test) For CT ABD/PEL W IVCON Routine order Administer, As Directed One Time Only, via Oral, Rectal, both Oral and Rectal, Enteric Tube, Stoma or Indwelling Catheter, Enteric Contrast as designated per enteric contrast guidelines (Patient not taking:Reported on 06/11/2024) acetaminophen (TYLENOL) 500 mg tablet Take 500 mg by mouth every 6 hours as needed. No current facility-administered medications on file prior to visit. Social History Social History Tobacco Use Smoking status: Never Smokeless tobacco: Never Vaping Use Vaping status: Never Used Substance Use Topics Alcohol use: Not Currently Comment: none Drug use: No Review of Symptoms REVIEW OF SYSTEMS SEE HPI EXAM: BP 112/68 Pulse 104 Resp 18 Wt 72.6 kg (160 lb) SpO2 96% BMI 22.96 kg/m General Appearance: Well appearing, alert, in no acute distress, well-hydrated, well nourished.. Breast: there is soft tender breast buds under both nipples. Left upper ext: shows a hematoma on the medial elbow with bruising of the skin surface. No signs ofinfection.. Health Maintenance List Shingrix Vaccine(1 of 2) Never done RSV Vaccine(1 - Risk 60-74 years 1-dose series) Never done Advance Directive Discussion due on 04/09/2024 Anxiety Screening due on 03/11/2025 LDL Cholesterol due on 04/17/2025 Colorectal Cancer Screening due on 06/01/2025 Serum Creatinine due on 06/11/2025 Hemoglobin/Hematocrit due on 06/11/2025 Annual PCP Team Chronic Disease Visit due on 09/22/2025 Diabetes Screening due on 06/12/2027 Lipid Screening due on 04/17/2029 DTaP,Tdap,Td Vaccine(5 - Td or Tdap) due on 05/07/2034 Influenza Vaccine Completed Hepatitis C Screening Completed Pneumococcal Vaccine: 50+ Completed Covid-19 Vaccine Discontinued Data reviewed Latest Ref Rng 06/30/2024 TSH 0.270 - 4.200 mIU/L 3.100 FSH 1.5 - 12.4 mIU/mL 21.7 (H) LH 1.8 - 10.8 mIU/mL 13.4 (H) Prolactin 4.1 - 25.1 ng/mL 72.8 (H) Testosterone 193 - 824 ng/dL 436 Estradiol 17B <38 pg/mL 25 hCG Quantitative, Blood <5.0 mIU/mL <0.6 Results MRI BRAIN WO JACINTO (Acc#[id number]) (Order [id number]) Patient Info Patient Name Sex Jacob Alba ([id number]) Male 1955 09/08/2024 3:46 PM - Radiology, [place] In Impression IMPRESSION: 1. Suspicion of small subacute left caudate lacunar infarct, small remote cortical infarcts in the right frontal lobe and left cerebellar hemisphere and mild chronic microvascular ischemic changes. . 2. No clear evidence of a pituitary adenoma within the constraints of the acquisition. Nonvisualization of the posterior pituitary gland which is nonspecific but can be seen in setting of SIADH. Gunner'S Mate: MORGAN Transcribe Date/Time: Sep 08 2024 3:29P Dictated by : RICHARD DEAL MD This examination was interpreted and the report reviewed and electronically signed by: RICHARD DEAL MD on Sep 08 2024 3:43PM EST Results-Findings * * *Final Report* * * DATE OF EXAM: Sep 08 2024 3:22PM SAM [id number] - MRI BRAIN WO IVCON / PROCEDURE REASON: multiple diagnoses * * * * Physician Interpretation * * * * EXAMINATION: MRI BRAIN WO IVCON CLINICAL HISTORY: Elevated serum prolactin, FSH, and LH. TECHNIQUE: Routine noncontrast MRI protocol including diffusion images with supplemental high-resolution sagittal and coronal T1 and coronal fast T2 images of the pituitary region.. MQ: [id number] COMPARISON: None. RESULT: Acute Change: There is no evidence of restricted diffusion to suggest an acute ischemic event. Mild hyperintensity is noted in the superior aspect of the left caudate head on the diffusion trace images but this is isointense on the ADC maps suggesting a small subacute lacunar infarct. Hemorrhage: Minimal chronic blood byproducts are noted in the left caudate head suggesting prior petechial hemorrhage. Punctate remote microhemorrhages are noted in the region of the hand knob of the left precentral gyrus, each parietal centrum semiovale, the subcortical white matter of the right occipital pole, and along the dorsal body of the corpus callosum to the right of midline on SWI. The etiology is uncertain but may relate to the prior cardiac surgery. Mass Lesion/ Mass Effect: No evidence of an intracranial mass or extra-axial fluid collection. No significant mass effect. Chronic Change: A small wedge-shaped parenchymal defect is noted along the inferior aspect of left cerebellar hemisphere compatible with a small remote cortical infarct in the left PICA distribution. Additional small remote cortical infarcts are noted along the dorsal aspect of the right superior frontal gyrus and adjacent precentral gyrus. A few scattered small patchy foci of hyperintensity are noted otherwise in the supratentorial white matter on FLAIR and T2 which are nonspecific but likely represent mild chronic microvascular ischemia in view of the above findings and the patient's chronologic age. Parenchyma: There is mild generalized cortical volume loss. There is moderate enlargement of the lateral and third ventricles suggesting central white matter volume loss for patient of this age. The brain parenchyma is otherwise within normal limits of signal intensity and morphology. Ventricles: Moderate enlargement of lateral and third ventricles suggesting central white matter volume loss as outlined above. Skull Base: High-resolution imaging of the pituitary and suprasellar region demonstrates the adenohypophysis to be within normal limits of caliber and configuration for age. No clear evidence of a mass within the sella within the constraints of acquisition. No evidence of a suprasellar mass. The overlying hypothalamus appears to be within normal limits.. The infundibulum is attenuated but likely intact. The posterior pituitary gland is not clearly appreciated which is nonspecific but can be seen in the setting of SIADH.. Craniocervical junction is normal. No significant marrow replacement process. Vasculature: Major intracranial arterial structures, and dural venous sinuses show typical flow void, suggesting patency by spin echo criteria. Other: Additional note is made of bilateral medial antrostomies, likely partial ethmoidectomies, suspicion of small polyps in the ethmoidectomy beds, left sphenoid sinus and left nasal cavity and mild mucosal thickening in the right maxillary antrum. Assessment and Plan 1. History of cerebral infarction MRI revealed a possible old lacunar infarct. Patient recalls a hospitalization last summer when a stroke was suspected but not confirmed. Currently on baby aspirin therapy. - Continue baby aspirin daily. - Maintain LDL levels below 70 mg/dL; current LDL is 52 mg/dL with Zetia and Lipitor therapy. 2. Gynecomastia Persistent tenderness in the right breast with a palpable mass; left breast also beginning to show similar symptoms. No discharge or erythema observed. Hormonal evaluation showed slightly elevated prolactin and luteinizing hormone levels. MRI showed no signs of a pituitary tumor but did not visualize the posterior pituitary gland, ruling out SIADH due to normal sodium levels (139 mEq/L). - Monitor for changes in size or discomfort. - Consider surgical removal if discomfort persists. - Recommended topical primrose oil application for a couple of months to alleviate pain. - Will consult with endocrinology to review hormonal lab results. Advised patient on his bruising and hematoma. Currently looks ok and will resolve over the next several weeks. Yaw Singh MD Recording using [employer] software for draft documentation of the visit was discussed with the patient/authorized premium representative; all questions welcomed and answered. Patient/authorized premium representative agreed to proceed [facility] History of Present illness Narrative* Krystina Quinones LPN - 09/18/2024 7:29 AM EDT Scan on 09/17/2024 10:16 PM by Provider, External, PAHailyC: Consultation - Emergency Medicine documented in this encounter[facility] Discharge summary [facility] Medical Records Department [address] [place] [address] Emergency Department Summary 09/17/24 MR#: [id number] Acct: [id number] Name: JACOB LANDA Rep #:[id number] : 1955 69 From: Sushant Tom MD PCP: Dr. Yaw Singh MD Status:REG ER Location: ED HPI History of Present Illness Chief Complaint: Back Detail of Chief Complaint: Patient presents with right-sided low back pain. Informant: patient Onset/Context/Timing Onset: Yesterday Context: Sudden Onset Injury: twisting Timing: Continuous Quality: Dull, Aching and Throbbing Location: Lumbar (Right side) Current Severity: Mild Maximum Severity: Severe Worsened by: improves with Movement and Bending Relieved by: Remaining Still Associated Symptoms Associated Symptoms: - (Denies saddle paresthesia or anesthesia. Denies radicular pain. Denies footdrop. Denies buckling of his knees going up and down steps.); Negative for Numbness, Tingling, Radiation to Right Leg, Radiationto Left Leg, Fever, Abdominal Pain, Dysuria, Unable to Ambulate, Unableto Transfer, Urinary Retention, Urinary Incontinence, Constipation or Fecal Incontinence Narrative Narrative: Patient is a 69-year-old male. He drove himself to the emergency department. He presents because ofright-sided low back pain. Eyes radicular pain. He is numbness of his right lower extremity. Nuys bowel bladder dysfunction. No saddle paresthesia anesthesia. No symptoms of claudication. He does need to use a wheelchair at times. He walks with a cane. Patient does not have history of back issues. [facility] and prescribed muscle relaxant for his back pain. He is not a candidate for NSAIDs because of history of thrombocytopenia and the fact he is on long-term anticoagulant and has end-stage renal disease. Prior similar symptoms: Yes Recent Illness/Hospitalization: No PFSH PFS Medical History Thrombocytopenia Wears glasses Cancer Cancer Pressure ulcer History of renal dialysis History of renal disease Injury of back History of GI bleed Gastric reflux Shortness of breath on exertion History of stress test History of echocardiogram Cardiology follow-up encounter Thrombus of venous dialysis catheter ESRD (end stage renal disease) on dialysis Acute respiratory insufficiency Medical non-compliance Acute exacerbation of chronic heart failure Chronic kidney disease (CKD) Pleural effusion Dyspnea Acute kidney injury Adenocarcinoma of esophagus LEELA (acute kidney injury) Non-smoker Esophageal carcinoma Atherosclerosis of coronary artery of [place] heart without angina pectoris 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 Essential (primary) hypertension Non-rheumatic aortic stenosis Syncope and collapse Hyperlipidemia Atherosclerotic heart disease of [place] coronary artery with other forms of angina pectoris Encounter for long-term current use of high risk medication abnormal stress test Angina pectoris Exertional chest pain Home Medications ?Medication ?Instructions ?Recorded ?Last Taken ?Type atorvastatin 80 mg tablet 80 mg PO QHS CHOLESTEROL #90 tabs 05/15/22 12/24/23 Rx ezetimibe 10 mg tablet 10 mg PO DAILY CHOLESTEROL # 90 tabs 05/15/22 12/24/23 Rx metoprolol tartrate 25 mg tablet 25 mg PO BID #0 tabs 10/25/23 06/30/24 05:30 Rx pantoprazole 40 mg tablet,delayed 40 mg PO BID #0 tabs 10/25/23 06/30/24 05:30 Rx release ferrous sulfate 325 mg (65 mg 325 mg PO DAILY #90 tabs 11/20/23 06/29/24 Rx iron) tablet polyethylene glycol 3350 17 17 g PO DAILY PRN constipa tion 12/04/23 Unknown History gram/dose oral powder (Miralax) ondansetron 4 mg disintegrating 4 mg PO Q8H PRN PRN na usea and 12/25/23 12/25/23 08:00 History tablet vomiting nitroglycerin 0.4 mg sublingual 0.4 mg sublingual PRN PRN angina 02/14/24 Unknown History tablet aspirin 81 mg chewable tablet 81 mg PO BID #0 tabs 01/3006/29/24 Rx acetaminophen 500 mg tablet 1,000 mg PO Q8 PRN pain Unknown History amoxicillin 500 mg tablet 2,000 mg (4 x 500 mg) PO ONC E #4 04/29/24 Unknown Rx tabs oxycodone 5 mg tablet 5 mg PO Q8H PRN pain 2 days #6 tabs 06/30/24 Unknown Rx oxycodone-acetaminophen 5 mg-325 1 tab PO Q6H PRN PRN pain 5 days 09/17/24 Unknown Rx mg tablet #20 TABLETS Allergy/AdvReac Type Severity Reaction Status Date / Time No Known Allergies Allergy Verified 09/17/24 17:30 Family History Father Heart disease Myocardial infarction Hypertension Brother Hypertension Sister Heart disease Myocardial infarction Surgical History History of hip replacement (~02/2024) History of cardiac catheterization History of esophagogastroduodenoscopy (EGD) Hx of surgical procedure History of aortic valve replacement (03/03/19) History of coronary artery stent placement (12/31/18) H/O coronary artery bypass surgery (09/18/02) History of tonsillectomy History of hernia repair Social History Smoking Status: Never smoker alcohol intake: never substance use type: does not use caffeine: No what type of physical activity do you participate in: walking frequency: daily ROS ROS ED Constitutional Constitutional ED: Denies chills, fever(s), subjective or sweats Cardiovascular Cardiovascular: Denies chest pain Respiratory/Chest Respiratory/Chest: Denies dyspnea or dyspnea on exertion Gastrointestinal Gastrointestinal: Denies abdominal pain, constipation, diarrhea, nausea or vomiting Genitourinary Genitourinary ED: Denies dysuria, hematuria or urinary frequency Musculoskeletal Musculoskeletal: Reports back pain Neurologic Neurologic: Denies paresthesias or weakness Hematologic/Lymphatic Hematologic/Lymphatic: Reports easy bleeding and easy bruising EXAM Physical Exam Const Vital Signs: 09/17/24 17:30 Temperature 98.0 F Temperature Source Oral Pulse Rate 97 Respiratory Rate 18 Blood Pressure 117/72 Blood Pressure Mean 87 Pulse Ox 97 Oxygen Delivery Method Room Air Positive well nourished General Appearance ED: NAD HEENT Reports moist mucous membranes HEENT Narrative: Head is atraumatic and normocephalic. Ears normal. Eyes PERRL and EOMs intact bilaterally General Eye ED: Yes pale conjunctiva; Negative for scleral icterus Resp normal respiratory effort Cardio regular rate and regular rhythm GI normal to inspection, nondistended, normoactive bowel sounds, soft to palpation,non-tender, non-distended and no masses Back/Spine normal to inspection; Negative for no thoracic nor lumbar tenderness Back/Spine Narrative: Tenderness right paralumbar region. Thoracic Spine / Upper Back: paraspinal muscle tenderness Lumbar Spine / Lower Back: ROM limited and straight leg raise negative bilaterally Extremity normal to inspection and no clubbing, cyanosis or edema Extremity Narrative: DP pulses palpable bilateral. Patient does have a significant ecchymotic area left upper extremity.This was due to infiltration of the dialysis needle when his fistula was cannulated. Neuro oriented x3 and no sensory deficits noted Neuro Narrative: EHLs intact. Normal sensation L3-S1 dermatome. 5/5 strength plantar dorsiflexion of his foot. Sensorium / Orientation: alert Motor Exam: strength 5/5 throughout Deep Tendon Reflexes: Rt Patellar (L4): 1+, Lt Patellar (L4): 1+, Rt Ankle (S1):1+ and Lt Ankle (S1): 1+ Deep Tendon Reflexes Back: Rt Patellar (L4): 1+, Lt Patellar (L4): 1+, Rt Ankle (S1): 1+ and Lt Ankle (S1): 1+ Plantar Reflex: Downgoing: bilateral (There is no clonus at the ankle right or left.) Psych mental status grossly normal Skin Skin Narrative: Patient has multiple superficial cuts that are healing without evidence of infection. MDM MDM MDM Narrative Medical decision making narrative: Patient's history and physical is consistent with muscular pain. There is no concern for cauda equina. There is no concern for spontaneous epidural hematomaor risk factors for epidural abscess. Patient has no radicular findings. He has a normal neurologic exam. Will treat with open analgesics sinceNSAIDs are contraindicated. Prior records were reviewed. History & Record Review Additional record(s) reviewed:: Prior outpatient record (Reviewed external correspondence for AV fistula for dated September 02, 2024. Patient was admitted for end-stage renal disease and fistula placementMarch by Dr. Nikita Jackson. Patientwas admitted to the hospital in February 2020 for.) Treatment and Re-Evaluation Narrative: Since patient drove himself he had his prescription filled here he would be ableto take the medicine at home. He does not have anyone that can pick him up. Discharge Plan Triage Chief Complaint: Back ED Provider: Sushant Tom Dx/Rx/DC Orders Clinical Impression: Acute lumbosacral myofascial strain, 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 anginapectoris, Thrombocytopenia, Current use of halfway anticoagulation, End-stage renal disease on hemodialysis Instructions: ED Back Sprain/Strain Prescriptions: New oxycodone-acetaminophen 5-325 mg tablet 1 tab PO Q6H PRN PRN (Reason: pain) 5 Days Qty: 20 0RF No Action atorvastatin 80 mg tablet 80 mg PO QHS Qty: 90 3RF ezetimibe 10 mg tablet 10 mg PO DAILY Qty: 90 3RF ferrous sulfate 325 mg (65 mg iron) tablet 325 mg PO DAILY Qty: 90 3RF acetaminophen 500 mg tablet 1,000 mg PO Q8 PRN (Reason: pain) Rx Instructions: Take Tylenol this way for 5 to 7 days postoperatively and then okay to go back and use as needed amoxicillin 500 mg tablet 2,000 mg PO ONCE Qty: 4 0RF Rx Instructions: Take one hour prior to dental cleanings/procedure metoprolol tartrate 25 mg Tablet 25 mg PO BID Qty: 0 0RF pantoprazole 40 mg Tablet,Delayed Release (Dr/Ec) 40 mg PO BID Qty: 0 0RF polyethylene glycol 3350 [Miralax] 17 gram/dose powder 17 g PO DAILY PRN (Reason: constipation) ondansetron 4 mg tablet,disintegrating 4 mg PO Q8H PRN PRN (Reason: nausea and vomiting) oxycodone 5 mg tablet 5 mg PO Q8H PRN (Reason: pain) 2 Days Qty: 6 0RF nitroglycerin 0.4 mg tablet, sublingual 0.4 mg sublingual PRN PRN (Reason: angina) aspirin 81 mg Tablet,Chewable 81 mg PO BID Qty: 0 0RF Rx Instructions: Take for 30 days postop and then okay to discontinue Primary Care Provider: Yaw Singh Referrals: Yaw Singh MD [Primary Care Provider] - 1 Week if not improving Activity Restrictions/Additional Instructions: 1. Apply ice to your lower back 6-8 times a day for the next 3 to 5 days 2. Take medication as prescribed 3. If you are unable to urinate, loss of bowel control dragging your foot or oryour knee [place] when you go up and down steps return to the emergency department immediately. Print Language: Congolese Disposition Disposition: Home, Self Care What to do if you have Problems For any increased pain, shortness of breath, bleeding, nausea or vomiting, chestpain, or any unexpected problems, contact your Primary Care Provider. Call [facility] ([phone]) or report tothe closest Emergency Room. Call 911 if necessary. 09/17/242207 Cosigner Signature (if applicable): CC: Dr. Yaw Singh MD ~ Signed [facility]06-11-2025 Discharge summary Author Sushant Tom [facility] Note Date/Time September 17, 2024 10:0 8pm [facility] Medical Records Department [address] [place] [address] Emergency Department Summary 09/17/24 MR#: [id number] Acct: [id number] Name: JACOB LANDA Rep #:[id number] : 1955 69 From: Sushant Tom MD PCP: Dr. Yaw Sinhg MD Status:REG ER Location: ED HPI History of Present Illness Chief Complaint: Back Detail of Chief Complaint: Patient presents with right-sided low back pain. Informant: patient Onset/Context/Timing Onset: Yesterday Context: Sudden Onset Injury: twisting Timing: Continuous Quality: Dull, Aching and Throbbing Location: Lumbar (Right side) Current Severity: Mild Maximum Severity: Severe Worsened by: improves with Movement and Bending Relieved by: Remaining Still Associated Symptoms Associated Symptoms: - (Denies saddle paresthesia or anesthesia. Denies radicular pain. Denies foot drop. Denies buckling of his knees going up and down steps.); Negative for Numbness, Tingling, Radiation to Right Leg, Radiationto Left Leg, Fever, Abdominal Pain, Dysuria, Unable to Ambulate, Unable to Transfer, Urinary Retention, Urinary Incontinence, Constipation or Fecal Incontinence Narrative Narrative: Patient is a 69-year-old male. He drove himself to the emergency department. He presents because of right-sided low back pain. Eyes radicular pain. He is numbness of his right lower extremity. Nu[place] bowel bladder dysfunction. No saddle paresthesia anesthesia. No symptoms of claudication. He does need to use a wheelchair at times. He walks with a cane. Patient does not have history of back issues. [facility] and prescribed muscle relaxant for his back pain. He is not a candidate for NSAIDs because of history of thrombocytopenia and the fact he is on long-term anticoagulant and has end-stage renal disease. Prior similar symptoms: Yes Recent Illness/Hospitalization: No PFSH PFSH Medical History Thrombocytopenia Wears glasses Cancer Cancer Pressure ulcer History of renal dialysis History of renal disease Injury of back History of GI bleed Gastric reflux Shortness of breath on exertion History of stress test History of echocardiogram Cardiology follow-up encounter Thrombus of venous dialysis catheter ESRD (end stage renal disease) on dialysis Acute respiratory insufficiency Medical non-compliance Acute exacerbation of chronic heart failure Chronic kidney disease (CKD) Pleural effusion Dyspnea Acute kidney injury Adenocarcinoma of esophagus LEELA (acute kidney injury) Non-smoker Esophageal carcinoma Atherosclerosis of coronary artery of [place] heart without angina pectoris 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 Essential (primary) hypertension Non-rheumatic aortic stenosis Syncope and collapse Hyperlipidemia Atherosclerotic heart disease of [place] coronary artery with other forms of angina pectoris Encounter for long-term current use of high risk medication abnormal stress test Angina pectoris Exertional chest pain Home Medications ?Medication ?Instructions ?Recorded ?Last Taken ?Type atorvastatin 80 mg tablet 80 mg PO QHS CHOLESTEROL #90 tabs 05/15/22 12/24/23 Rx ezetimibe 10 mg tablet 10 mg PO DAILY CHOLESTEROL # 90 tabs 05/15/22 12/24/23 Rx metoprolol tartrate 25 mg tablet 25 mg PO BID #0 tabs 10/25/23 06/30/24 05:30 Rx pantoprazole 40 mg tablet,delayed 40 mg PO BID #0 tabs 10/25/23 06/30/24 05:30 Rx release ferrous sulfate 325 mg (65 mg 325 mg PO DAILY #90 tabs 11/20/23 06/29/24 Rx iron) tablet polyethylene glycol 3350 17 17 g PO DAILY PRN constipa tion 12/04/23 Unknown History gram/dose oral powder (Miralax) ondansetron 4 mg disintegrating 4 mg PO Q8H PRN PRN na usea and 12/25/23 12/25/23 08:00 History tablet vomiting nitroglycerin 0.4 mg sublingual 0.4 mg sublingual PRN PRN angina 02/14/24 Unknown History tablet aspirin 81 mg chewable tablet 81 mg PO BID #0 tabs 01/3006/29/24 Rx acetaminophen 500 mg tablet 1,000 mg PO Q8 PRN pain Unknown History amoxicillin 500 mg tablet 2,000 mg (4 x 500 mg) PO ONC E #4 04/29/24 Unknown Rx tabs oxycodone 5 mg tablet 5 mg PO Q8H PRN pain 2 days #6 tabs 06/30/24 Unknown Rx oxycodone-acetaminophen 5 mg-325 1 tab PO Q6H PRN PRN pain 5 days 09/17/24 Unknown Rx mg tablet #20 TABLETS Allergy/AdvReac Type Severity Reaction Status Date / Time No Known Allergies Allergy Verified 09/17/24 17:30 Family History Father Heart disease Myocardial infarction Hypertension Brother Hypertension Sister Heart disease Myocardial infarction Surgical History History of hip replacement (~02/2024) History of cardiac catheterization History of esophagogastroduodenoscopy (EGD) Hx of surgical procedure History of aortic valve replacement (03/03/19) History of coronary artery stent placement (12/31/18) H/O coronary artery bypass surgery (09/18/02) History of tonsillectomy History of hernia repair Social History Smoking Status: Never smoker alcohol intake: never substance use type: does not use caffeine: No what type of physical activity do you participate in: walking frequency: daily ROS ROS ED Constitutional Constitutional ED: Denies chills, fever(s), subjective or sweats Cardiovascular Cardiovascular: Denies chest pain Respiratory/Chest Respiratory/Chest: Denies dyspnea or dyspnea on exertion Gastrointestinal Gastrointestinal: Denies abdominal pain, constipation, diarrhea, nausea or vomiting Genitourinary Genitourinary ED: Denies dysuria, hematuria or urinary frequency Musculoskeletal Musculoskeletal: Reports back pain Neurologic Neurologic: Denies paresthesias or weakness Hematologic/Lymphatic Hematologic/Lymphatic: Reports easy bleeding and easy bruising EXAM Physical Exam Const Vital Signs: 09/17/24 17:30 Temperature 98.0 F Temperature Source Oral Pulse Rate 97 Respiratory Rate 18 Blood Pressure 117/72 Blood Pressure Mean 87 Pulse Ox 97 Oxygen Delivery Method Room Air Positive well nourished General Appearance ED: NAD HEENT Reports moist mucous membranes HEENT Narrative: Head is atraumatic and normocephalic. Ears normal. Eyes PERRL and EOMs intact bilaterally General Eye ED: Yes pale conjunctiva; Negative for scleral icterus Resp normal respiratory effort Cardio regular rate and regular rhythm GI normal to inspection, nondistended, normoactive bowel sounds, soft to palpation,non-tender, non-distended and no masses Back/Spine normal to inspection; Negative for no thoracic nor lumbar tenderness Back/Spine Narrative: Tenderness right paralumbar region. Thoracic Spine / Upper Back: paraspinal muscle tenderness Lumbar Spine / Lower Back: ROM limited and straight leg raise negative bilaterally Extremity normal to inspection and no clubbing, cyanosis or edema Extremity Narrative: DP pulses palpable bilateral. Patient does have a significant ecchymotic area left upper extremity. This was due to infiltration of the dialysis needle when his fistula was cannulated. Neuro oriented x3 and no sensory deficits noted Neuro Narrative: EHLs intact. Normal sensation L3-S1 dermatome. 5/5 strength plantar dorsiflexion of his foot. Sensorium / Orientation: alert Motor Exam: strength 5/5 throughout Deep Tendon Reflexes: Rt Patellar (L4): 1+, Lt Patellar (L4): 1+, Rt Ankle (S1):1+ and Lt Ankle (S1): 1+ Deep Tendon Reflexes Back: Rt Patellar (L4): 1+, Lt Patellar (L4): 1+, Rt Ankle (S1): 1+ and Lt Ankle (S1): 1+ Plantar Reflex: Downgoing: bilateral (There is no clonus at the ankle right or left.) Psych mental status grossly normal Skin Skin Narrative: Patient has multiple superficial cuts that are healing without evidence of infection. MDM MDM MDM Narrative Medical decision making narrative: Patient's history and physical is consistent with muscular pain. There is no concern for cauda equina. There is no concern for spontaneous epidural hematomaor risk factors for epidural abscess. Patient has no radicular findings. He has a normal neurologic exam. Will treat with open analgesics since NSAIDs are contraindicated. Prior records were reviewed. History & Record Review Additional record(s) reviewed:: Prior outpatient record (Reviewed external correspondence for AV fistula for dated September 02, 2024. Patient was admitted for end-stage renal disease and fistula placement June by Dr. Nikita Jackson. Patientwas admitted to the hospital in February 2020 for.) Treatment and Re-Evaluation Narrative: Since patient drove himself he had his prescription filled here he would be ableto take the medicine at home. He does not have anyone that can pick him up. Discharge Plan Triage Chief Complaint: Back ED Provider: Sushant Tom Dx/Rx/DC Orders Clinical Impression: Acute lumbosacral myofascial strain, 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 angina pectoris, Thrombocytopenia, Current use of long term acute care registered nurse anticoagulation, End-stage renal disease on hemodialysis Instructions: ED Back Sprain/Strain Prescriptions: New oxycodone-acetaminophen 5-325 mg tablet 1 tab PO Q6H PRN PRN (Reason: pain) 5 Days Qty: 20 0RF No Action atorvastatin 80 mg tablet 80 mg PO QHS Qty: 90 3RF ezetimibe 10 mg tablet 10 mg PO DAILY Qty: 90 3RF ferrous sulfate 325 mg (65 mg iron) tablet 325 mg PO DAILY Qty: 90 3RF acetaminophen 500 mg tablet 1,000 mg PO Q8 PRN (Reason: pain) Rx Instructions: Take Tylenol this way for 5 to 7 days postoperatively and then okay to go back and use as needed amoxicillin 500 mg tablet 2,000 mg PO ONCE Qty: 4 0RF Rx Instructions: Take one hour prior to dental cleanings/procedure metoprolol tartrate 25 mg Tablet 25 mg PO BID Qty: 0 0RF pantoprazole 40 mg Tablet,Delayed Release (Dr/Ec) 40 mg PO BID Qty: 0 0RF polyethylene glycol 3350 [Miralax] 17 gram/dose powder 17 g PO DAILY PRN (Reason: constipation) ondansetron 4 mg tablet,disintegrating 4 mg PO Q8H PRN PRN (Reason: nausea and vomiting) oxycodone 5 mg tablet 5 mg PO Q8H PRN (Reason: pain) 2 Days Qty: 6 0RF nitroglycerin 0.4 mg tablet, sublingual 0.4 mg sublingual PRN PRN (Reason: angina) aspirin 81 mg Tablet,Chewable 81 mg PO BID Qty: 0 0RF Rx Instructions: Take for 30 days postop and then okay to discontinue Primary Care Provider: Yaw Singh Referrals: Yaw Singh MD [Primary Care Provider] - 1 Week if not improving Activity Restrictions/Additional Instructions: 1. Apply ice to your lower back 6-8 times a day for the next 3 to 5 days 2. Take medication as prescribed 3. If you are unable to urinate, loss of bowel control dragging your foot or oryour knee [place] when you go up and down steps return to the emergency department immediately. Print Language: Congolese Disposition Disposition: Home, Self Care What to do if you have Problems For any increased pain, shortness of breath, bleeding, nausea or vomiting, chestpain, or any unexpected problems, contact your Primary Care Provider. Call [facility] ([phone]) or report to the closest Emergency Room. Call 911 if necessary. 09/17/242207 <Electronically signed by Sushant Tom MD> Cosigner Signature (if applicable): CC: Dr. Yaw Singh MD ~ Signed [facility] Work Phone: [phone]) 950-563206-11-2025 Hospital Discharge instructions Additional Instructions 1. Apply ice to your lower back 6-8 times a day for the next 3 to 5 days 2. Take medication as prescribed 3. If you are unable to urinate, loss of bowel control dragging your foot or or your knee [place] when you go up and down steps return to the emergency department immediately. [facility] Work Phone: 1(112) 566-769506-06-2025 History of Present illness Narrative* Yaw Smith APRN.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 - 09/12/2024 8:45 AM EDT Images from the original note were not included. Subjective HPI Nontoxic-appearing 6-year-old male presents urgent care chief complaint dog scratch. Patient statesthe puppy jumped up on his bed this morning scratching his left arm. Presents today for evaluation.Did wash wound with peroxide and used Neosporin. Presents today for evaluation. No other concerns. Tetanus within 5 years. No numbness no tingling. Past medical history prescription medications allergies reviewed. .Patient presents with: Animal Bite: L arm scratches x this AM, fistula in L arm PAST MEDICAL HISTORY Diagnosis Date Advance directive discussed with patient 02/09/2022 Discussed 02/2022, packets provided AK (actinic keratosis) 09/07/2020 One on the right forearm dorsal, three on the left forearm dorsal and one left side of face hear hair line about eye level. Tx cryo 09/2020 Aortic valve stenosis 07/26/2015 Ascending aorta dilation 09/21/2023 09/21/2023: 4.1cm Asthma (HCC) BPH (benign prostatic hyperplasia) 07/20/2014 Carpal tunnel syndrome of right wrist CKD (chronic kidney disease) stage 4, GFR 15-29 ml/min (HCC) 01/03/2024 On dialysis and seeing Dr. Greenberg. Closed wedge compression fracture of T10 vertebra (HCC) 07/12/2023 Coronary artery disease involving [place] coronary artery without angina pectoris Seeing Dr. Noland DDD (degenerative disc disease), lumbar 11/04/2019 Elevated blood sugar 03/11/2024 Esophageal adenocarcinoma (HCC) 08/09/2020 Essential hypertension, benign Family history of breast cancer 06/30/2024 Family history of ovarian cancer 06/30/2024 GERD (gastroesophageal reflux disease) 07/12/2009 History of kidney stones 07/20/2014 Iron deficiency anemia due to chronic blood loss 05/25/2020 Iron malabsorption (HCC) 05/25/2020 Kidney stone Kyphosis (acquired) (postural) 07/30/[address] 03/11/2024 DPA: Lacho (step daughter) Malignant 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) 04/15/2020 Medicare annual wellness visit, subsequent 01/13/2021 Medical B eligibilty date 03/09/19 Date of last exam 01/13/2021 Mixed hyperlipidemia MRSA (methicillin resistant Staphylococcus aureus) 12/01/2016 treated with course of Linezolid beginning 10/29/16 Nonrheumatic aortic valve disorder On tube feeding diet 08/14/2020 History: 65 year old male s/p [place] esophagectomy, Pyloromyotomy, Jejunostomy tube placement for esophageal adenocarcinoma -Diet: Isosource 1.5 to 50 cc hour with 100 cc water flushes 8 times per day and Bene protein 3 times per day Removed 11/17/2020 Personal history of colonic polyps 12/27/2009 Rn Wound's nodules 03/30/2023 Will try pamelor Pleural effusion 03/11/2021 Stable in f/u studies. Pressure ulcer of unspecified buttock, stage 2 (HCC) 01/03/2024 Bilaterally. Primary insomnia 03/30/2023 S/P CABG x 3 2003 S/P CABG x 4 07/23/2017 S/P TAVR (transcatheter aortic valve replacement) 04/30/2024 Needs dental prophylaxis. 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 Due to repeat anemia 01/01/2024felt Eliquis could be stopped since risk did not out way benefit. Upper GI bleed 05/25/2020 PAST SURGICAL HISTORY Procedure Laterality Date ADENOIDECTOMY PRIMARY <AGE 11 Adenoidectomy AORTIC VALVE RECONSTRUCTION 03/03/2019 s/p TAVR BYP OTH/THN VEIN CAROTID-SUBCLAVIAN 2002 Bypass graft carotid subcl COLONOSCOPY FLX DX W/COLLJ SPEC WHEN PFRMD 02/28/2013 COLONOSCOPY FLX DX W/COLLJ SPEC WHEN PFRMD 12/06/2016 repeat in 5 yrs COLONOSCOPY SCRN NOT HIGH RISK 06/01/2020 COLONOSCOPY W/BIOPSY SINGLE/MULTIPLE 02/22/2007 Diminutive polyp distal [id number] ECHO 01/08/2021 EGD 04/15/2020 HEART CATHETERIZATION 12/2018 with 2 stents IMPLANT MESH OPN HERNIA RPR/DEBRIDEMENT CLOSURE 03/06/2007 LAPAROSCOPY SURG RPR INITIAL INGUINAL HERNIA 03/06/2007 umbilical NM CARDIAC STRESS TEST 01/08/2021 PAST SURGICAL HISTORY OF Right 2016 incision and drainage right axillary abscess REPAIR ANORECTAL FISTULA W/PLUG 12/06/2016 REPAIR FIRST ABDOMINAL WALL HERNIA 03/06/2007 right STENT - CORONARY 2014 x3 & x2 12/2018 TONSILLECTOMY PRIMARY/SECONDARY <AGE 11 Tonsillectomy TOT/SUB ESOPHAGECTOMY W/THORACOT 08/09/2020 [place] esophagectomy, jejunostomy tube placement TOTAL HIP REPLACEMENT Left 02/15/2024 ALLERGIES Seasonal Allergies MEDICATIONS OLANZapine (ZYPREXA) 2.5 mg tablet TAKE 1 TABLET BY MOUTH ONCE DAILY AT BEDTIME ondansetron orally disintegrating (ZOFRAN ODT) 4 mg disintegrating tablet Take 1 tablet by mouth every 6 hours as needed for nausea/vomiting. pantoprazole DR (PROTONIX) 40 mg tablet Take 1 tablet by mouth two times a day. ezetimibe (ZETIA) 10 mg tablet Take 1 tablet by mouth once daily. metoprolol tartrate, short acting, (LOPRESSOR) 25 mg tablet Take 1 tablet by mouth two times a day. fluticasone (FLONASE) 50 mcg/actuation nasal spray Use 1 [place] in each nostril once daily. ferrous sulfate (SLOW FE) 137 mg (45 mg iron) TbER Take 1 tablet by mouth every other day. ascorbic acid, vitamin C, (VITAMIN C) 500 mg tablet Take 1 tablet by mouth every other day. acetaminophen (TYLENOL) 500 mg tablet Take 500 mg by mouth every 6 hours as needed. atorvastatin (LIPITOR) 80 mg tablet Take 1 tablet by mouth daily at bedtime. enteric contrast (will be provided with radiology test) For CT ABD/PEL W IVCON Routine order Administer, As Directed One Time Only, via Oral, Rectal, both Oral and Rectal, Enteric Tube, Stoma or Indwelling Catheter, Enteric Contrast as designated per enteric contrast guidelines (Patient not taking:Reported on 06/11/2024) FAMILY HISTORY Problem Relation Age of Onset Cancer Mother OVARIAN AND THYROID CA Breast Cancer Mother Ischemic Heart Disease Father from Cerebral Hemmorrhage age 50 other (mva) Brother Cancer Sister Bone Marrow CA at 59 y/o Ischemic Heart Disease Sister 49 at 57y/o No Known Problems Sister Thyroid Sister Cancer Paternal Aunt cancer of colon other (unkown) Brother Social History Tobacco Use Smoking status: Never Smokeless tobacco: Never Vaping Use Vaping status: Never Used Substance Use Topics Alcohol use: Not Currently Comment: none Drug use: No BP 118/70 Pulse 86 Temp 36.6 C (97.8 F) Resp 18 Wt 73.8 kg (162 lb 11.2 oz) SpO2 97% BMI 23.34 kg/m Review of Systems Constitutional: Negative for chills, fever and malaise/fatigue. Musculoskeletal: Negative for back pain, joint pain, myalgias and neck pain. Neurological: Negative for dizziness, loss of consciousness, weakness and headaches. Objective Physical Exam Constitutional: General: He is not in acute distress. Appearance: He is not toxic-appearing. HENT: Head: Normocephalic. Nose: Nose normal. Eyes: Pupils: Pupils are equal, round, and reactive to light. Cardiovascular: Rate and Rhythm: Normal rate. Pulmonary: Effort: Pulmonary effort is normal. No respiratory distress. Musculoskeletal: Arms: Cervical back: Normal range of motion. Comments: Superficial skin tears noted highlighted area. Area cleansed with antimicrobial scrub. Dressing applied. Skin: General: Skin is warm and dry. Neurological: General: No focal deficit present. Mental Status: He is alert. ASSESSMENT/PLAN: 1. Skin tear of left forearm without complication, initial encounter - ICD9: 881.00, ICD10: S51.812A Diagnosis skin tear left forearm. Wound dressed. Wound check 2 to 3 days recommended. Patient was educated on supportive therapies. Patient will follow up with primary care provider as needed. Patient was instructed to immediately proceed to emergency room for any new, worsening, or symptoms lasting longer than anticipated. The patient's clinical presentation is otherwise unremarkable at this time. Based on exam and clinical finding, the patient is stable for discharge. Plan of care was discussed with patient. Patient verbalizes understanding and agrees to plan of care. This note was generated using [employer] software. It may contain errors in wording, punctuation, or spelling. Yaw Smith APRN.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 documented [facility] Telephone encounter Note * Telephone Encounter - Yaw Singh MD - 09/09/2024 5:24 PM EDT Shazia can we get Jacob on my schedule for a 20 min appt to discuss his MRI results and gynecomasty sometime between 09/11/2024 and his routine appt with Usha (which he is to keep) on 10/07/2024 [facility] Miscellaneous Notes* Telephone Encounter - Yaw Singh MD - 09/09/2024 5:24 PM EDT Shazia can we get Jacob on my schedule for a 20 min appt to discuss his MRI results and gynecomasty sometime between 09/11/2024 and his routine appt with Usha (which he is to keep) on 10/07/2024 * Telephone Encounter - Tata Weems LPN - 09/09/2024 10:33 AM EDT Phoned patient and reviewed provider's message with him. Patient voiced understanding. Tata Weems LPN * Telephone Encounter - Tata Weems LPN - 09/09/2024 10:30 AM EDT ----- Message from Stacia Adame MD sent at 09/09/2024 9:40 AM EDT ----- MRI of the brain without contrast does not show clear evidence of pituitary mass/adenoma. Unable tovisualize posterior pituitary gland which is nonspecific, but can be seen with SIADH. Also noted suspicion of small subacute left lacunar infarct (stroke) with areas of small old infarcts in the right frontal lobe and left cerebellum with chronic small vessel changes. I do not see a previous diagnosis of stroke on his chart. If he has recently developed symptoms of slurred speech, facial droop, severe headache, vision changes, one sided numbness/tingling/weakness I would direct him to the ER. Otherwise, I would have him continue current regimen and will forward to PCP for further management/discussion and neurology consideration. documented in this encounterCommunity [facility]06[facility] Telephone encounter Note * Telephone Encounter - Tata Weems LPN - 09/09/2024 10:33 AM EDT Phoned patient and reviewed provider's message with him. Patient voiced understanding. Tata Weems LPN [facility] Telephone encounter Note* Telephone Encounter - Tata Weems LPN - 09/09/2024 10:30 AM EDT ----- Message from Stacia Adame MD sent at 09/09/2024 9:40 AM EDT ----- MRI of the brain without contrast does not show clear evidence of pituitary mass/adenoma. Unable tovisualize posterior pituitary gland which is nonspecific, but can be seen with SIADH. Also noted suspicion of small subacute left lacunar infarct (stroke) with areas of small old infarcts in the right frontal lobe and left cerebellum with chronic small vessel changes. I do not see a previous diagnosis of stroke on his chart. If he has recently developed symptoms of slurred speech, facial droop, severe headache, vision changes, one sided numbness/tingling/weakness I would direct him to the ER. Otherwise, I would have him continue current regimen and will forward to PCP for further management/discussion and neurology consideration. [facility] Telephone encounter Note* Telephone Encounter - Yaw Singh MD - 09/08/2024 3:27 PM EDT Info below noted and agree. [facility] Miscellaneous Notes* Telephone Encounter - Yaw Singh MD - 09/08/2024 3:27 PM EDT Info below noted and agree. * Telephone Encounter - Stacia Adame MD - 09/08/2024 2:29 PM EDT With his CKD stage 4 I wanted to avoid contrast dye. I know that with some of the newer gadolinium based contrasts, it does not effect the kidneys as much, but I still would not feel comfortable withusing the contrast unless it was run by his wire frame lamp shade maker first. I f radiology does not think that the MRI as ordered will benefit him, the I would recommend delayingand coordinating the imaging with his wire frame lamp shade maker. Forwarding to PCP as FYI. * Telephone Encounter - Brandie Bailey RN - 07/11/2024 9:42 AM EDT Patient calls and notified of results and providers instructions. Patient verbalizes understanding.Patient has scheduled mammogram and US. Will wait to schedule MRI-Brain once insurance authorization received. Brandie Bailey RN * Telephone Encounter - Stacia Adame MD - 07/11/2024 7:57 AM EDT Patient's workup for gynecomastia shows normal testosterone level, estrogen, and thyroid testing. Prolactin level and hormone levels FSH and LH are elevated. He is in Olanzapine which has some possibility to cause high prolactin level. Recommend MRI of the brain without IV contrast due to his stage IV CKD for further workup of elevated prolactin to rule out pituitary mass. Needs to f/u with mammogram and US as recommended by PCP. documented in this encounterCommunity [facility]06-[facility] Telephone encounter Note * Telephone Encounter - Stacia Adame MD - 09/08/2024 2:29 PM EDT With his CKD stage 4 I wanted to avoid contrast dye. I know that with some of the newer gadolinium based contrasts, it does not effect the kidneys as much, but I still would not feel comfortable withusing the contrast unless it was run by his wire frame lamp shade maker first. I f radiology does not think that the MRI as ordered will benefit him, the I would recommend delayingand coordinating the imaging with his wire frame lamp shade maker. Forwarding to PCP as FYI. [facility]06-02-2025 History of Present illness Narrative* Gloria Sinclair RT(R) - 09/08/2024 2:00 PM EDT Radiology Service Progress Note PATIENT NAME: Jacob Landa DATE OF SERVICE: September 08, 2024 TIME: 3:10 PM PATIENT IDENTITY VERIFICATION COMPLETED USING TWO (2) IDENTIFIERS: Name and Date of confirmedby patient verbally. FALL SCREENING: Has the patient had 2 falls in the last year or 1 fall with injury or currently using an Ambulatory Assistive Device (Walker, Cane, Wheelchair, Crutches, etc.)? No PATIENT GENDER DATA: Assigned male at PATIENT RELEVANT IMPLANT DATA REVIEWED: Yes PATIENT PRESENTS WITH AN IMPLANTABLE OR ATTACHED SQL SSIS DEVELOPER: No RADIOLOGY DEPARTMENT: MR; Exam(s) Completed: Head: Routine Brain. Lavender Administered: No PERIPHERAL IV DATA: Not applicable SIGNED BY: RT Arlen(Bea) September 08, 2024 3:10 PM documented in this encounterCommunity [facility] Telephone encounter Note * Telephone Encounter - Brandie Bailey RN - 09/08/2024 11:54 AM EDT The patient has been identified by name and date of : Yes Caregiver verified no other encounters exist for this prescription request: Yes Caregiver confirmed with patient/requestor that no other refills are due, in the near future, with this provider at this time: Yes The last office visit in the department: 06/30/2024 Does the patient have a future office visit with this provider/department: 10/07/2024 Requested Prescriptions Pending Prescriptions Disp Refills ondansetron orally disintegrating (ZOFRAN ODT) 4 mg disintegrating tablet 30 tablet 1 Sig: Take 1 tablet by mouth every 6 hours as needed for nausea/vomiting. Brandie Bailey RN September 08, 2024 11:54 AM [facility]06-02-2025 Miscellaneous Notes* Telephone Encounter - Brandie Bailey RN - 09/08/2024 11:54 AM EDT The patient has been identified by name and date of : Yes Caregiver verified no other encounters exist for this prescription request: Yes Caregiver confirmed with patient/requestor that no other refills are due, in the near future, with this provider at this time: Yes The last office visit in the department: 06/30/2024 Does the patient have a future office visit with this provider/department: 10/07/2024 Requested Prescriptions Pending Prescriptions Disp Refills ondansetron orally disintegrating (ZOFRAN ODT) 4 mg disintegrating tablet 30 tablet 1 Sig: Take 1 tablet by mouth every 6 hours as needed for nausea/vomiting. Brandie Bailey RN September 08, 2024 11:54 AM documented in this encounterCommunity [facility] Telephone encounter Note * Telephone Encounter - Yaw Singh MD - 09/05/2024 1:09 PM EDT Noted. [facility]05-30-2025 Miscellaneous Notes* Telephone Encounter - Yaw Singh MD - 09/05/2024 1:09 PM EDT Noted. * Telephone Encounter - Alberta Candelaria MA - 09/05/2024 11:29 AM EDT Patient notified and voiced understanding. Patient was not aware he need an MRI. Patient was unable to schedule right now was going to call back. Alberta Candelaria MA * Telephone Encounter - Yaw Singh MD - 09/04/2024 9:43 PM EDT Let patient know the mammogram and Us shows benign breast tissue on the right (Gynecomastia). See if he has the MRI set up and if so when. Would wait on this and if ok the next step would be to see surgeon for removal of the tissue. documented in this encounterCommunity [facility] Telephone encounter Note * Telephone Encounter - Alberta Candelaria MA - 09/05/2024 11:29 AM EDT Patient notified and voiced understanding. Patient was not aware he need an MRI. Patient was unable to schedule right now was going to call back. Alberta Candelaria MA [facility]05-29-2025 Telephone encounter Note* Telephone Encounter - Yaw Singh MD - 09/04/2024 9:43 PM EDT Let patient know the mammogram and Us shows benign breast tissue on the right (Gynecomastia). See if he has the MRI set up and if so when. Would wait on this and if ok the next step would be to see surgeon for removal of the tissue. [facility]05-27-2025 Evaluation note* Diagnosis Onset Date Resolution Status Admit Date AV fistula acute September 02, 2024 1:47pm Tunneled central venous cath eter present acute October 15, 2024 9 :01am Compression fracture of L1 lumbar vertebra acute November 14, 2024 9:28am Compression fracture of L2 acute November 14, 2024 9:28am Compression fracture of L3 vertebra acute November 14, 2024 9:28am Compression fracture of L4 vertebra acute November 14, 2024 9:28am Compression fracture of L5 vertebra acute November 14, 2024 9:28am [facility] Work Phone: [phone] Telephone encounter Note* Telephone Encounter - Erin Du LPN - 09/02/2024 8:47 AM EDT Last OV 05/02/24 Next OV 11/07/24 Pended Rx. Erin Du LPN [facility]05-27-2025 Miscellaneous Notes* Telephone Encounter - Erin Du LPN - 09/02/2024 8:47 AM EDT Last OV 05/02/24 Next OV 11/07/24 Pended Rx. Erin Du LPN * Telephone Encounter - Nuria Sanches - 09/02/2024 8:41 AM EDT Patient called for refill on Pantoprazole 40 mg and to send it to [facility]. He is all out. Nuria Sanches documented in this encounterCommunity [facility] Telephone encounter Note * Telephone Encounter - Nuria Sanches - 09/02/2024 8:41 AM EDT Patient called for refill on Pantoprazole 40 mg and to send it to [facility]. He is all out. Nuria Sanches [facility]05-21-2025 NoteHNO ID: [id number] Author: LUPE BLACK RT(R) Service: ? Author Type: Technologist Type: Progress Notes Filed: 08/27/2024 09:53 Note Text: Radiology Service Progress Note PATIENT NAME: Jacob Landa DATE OF SERVICE: August 27, 2024 TIME: 9:52 AM PATIENT IDENTITY VERIFICATION COMPLETED USING TWO (2) IDENTIFIERS: Name and Date of confirmed by patient verbally. FALL SCREENING: Has the patient had 2 falls in the last year or 1 fall with injury or currently using an Ambulatory Assistive Device (Walker, Cane, Wheelchair, Crutches, etc.)? No PATIENT GENDER DATA: Assigned female at . status: : No status: NO. PATIENT RELEVANT IMPLANT DATA REVIEWED: Not Applicable PATIENT PRESENTS WITH AN IMPLANTABLE OR ATTACHED SQL SSIS DEVELOPER: No RADIOLOGY DEPARTMENT: Mammography PERIPHERAL IV DATA: Not applicable SIGNED BY: RT Adam(R) August 27, 2024 9:[address] [facility]05-14-2025 NoteHNO ID: [id number] Author: STEVE YOUSSEF PA-C Service: ? Author Type: Physician Pharmacy Technology Instructor Type: Progress Notes Filed: 08/20/2024 18:42 Note Text: This note was created using [employer]. Subjective Jacob Landa is a 69 year old male. Patient is a 69-year-old male who complains of bilateral lower back pain that he noted upon awakening this morning. Patient denies specific accident or injury but does state that he believes his symptoms are related to mowing his yard 2 days ago. Patient states that he spent a significant amount of time driving his tractor while mowing the yard despite warnings from his not to do so. Patient denies fall or other injury. Patient reports no paresthesia or paralysis to his bilateral legs and states he is able to bear weight and ambulate although it is painful to do so. Patient denies radiation of the pain to his buttocks and legs. Patient states he has full control of bowel and bladder denies episodes of incontinence. 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 Patient has no history of metastatic disease or degenerative disc disease to the lumbar spine. Patient's most recent MRI imaging was obtained on 07 May 2024. Patient denies dysuria, hematuria or flank pain. Review of Systems Musculoskeletal: Positive for back pain. All other systems reviewed and are negative. Objective BP 118/74 Pulse 84 Temp 36.2 ?C (97.2 ?F) Resp 16 Wt 74.3 kg (163 lb 12.8 oz) SpO2 96% BMI 23.50 kg/m? Physical Exam Vitals and nursing note reviewed. Constitutional: Appearance: Normal appearance. He is normal weight. HENT: Head: Normocephalic and atraumatic. Nose: Nose normal. Mouth/Throat: Mouth: Mucous membranes are moist. Pharynx: Oropharynx is clear. Eyes: Extraocular Movements: Extraocular movements intact. Conjunctiva/sclera: Conjunctivae normal. Pupils: Pupils are equal, round, and reactive to light. Cardiovascular: Rate and Rhythm: Normal rate. Pulses: Normal pulses. Pulmonary: Effort: Pulmonary effort is normal. Breath sounds: Normal breath sounds. Musculoskeletal: General: Tenderness present. No swelling, deformity or signs of injury. Normal range of motion. Cervical back: Normal range of motion and neck supple. Right lower leg: No edema. Left lower leg: No edema. Comments: Clearly reproducible tenderness to the bilateral paravertebral muscles is noted to the inferior lumbar back at the level of L3-L5. There is no crepitus or deformity noted with palpation of the lumbar spine. Overlying skin is clear without erythema or ecchymosis. MSP to the bilateral legs is fully intact and muscle strength is 5/5. Gait and station are slightly antalgic secondary to stiffness and pain. Skin: General: Skin is warm and dry. Capillary Refill: Capillary refill takes less than 2 seconds. Findings: No bruising or erythema. Neurological: General: No focal deficit present. Mental Status: He is alert and oriented to person, place, and time. Sensory: No sensory deficit. Motor: No weakness. Coordination: Coordination normal. Gait: Gait abnormal. Psychiatric: Mood and Affect: Mood normal. Behavior: Behavior normal. Thought Content: Thought content normal. Judgment: Judgment normal. Assessment and Plan Physical exam findings as noted above. X-ray lumbar spine is negative for acute findings, however the radiologist does report possible new mild L5 superior endplate compression deformity. Patient was provided with a prescription for Robaxin 500 mg and advised to schedule appointment with his primary care physician for further evaluation management if he experiences no improvement in his symptoms. Additional supportive care was discussed with patient verbalizes excellent understanding of same. CLINICAL IMPRESSION: Acute Bilateral Lumbar Back Pain ASSESSMENT/PLAN: 1. Acute bilateral low back pain without sciatica - ICD9: 724.2, 338.19, ICD10: M54.50 - XR LUMBAR GENERAL 3V AP/LAT/L5-S1 - METHOCARBAMOL 500 MG TABLET MDM Amount and/or Complexity of Data Reviewed Tests in the radiology section of CPT?: ordered and reviewed Risk of Complications, Morbidity, and/or Mortality Presenting problems: low Diagnostic procedures: low [facility] History of Present illness Narrative* Steve Youssef PA-C - 08/20/2024 6:32 PM EDT This note was created using [employer]. Subjective Jacob Landa is a 69 year old male. Patient is a 69-year-old male who complains of bilateral lower back pain that he noted upon awakening this morning. Patient denies specific accident or injury but does state that he believes his symptoms are related to mowing his yard 2 days ago. Patient states that he spent a significant amount oftime driving his tractor while mowing the yard despite warnings from his not to do so. Patientdenies fall or other injury. Patient reports no paresthesia or paralysis to his bilateral legs and states he is able to bear weight and ambulate although it is painful to do so. Patient denies radiation of the pain to his buttocks and legs. Patient states he has full control of bowel and bladder denies episodes of incontinence. 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 Patient has no history of metastatic disease or degenerative disc disease to the lumbar spine. Patient's most recent MRI imaging was obtained on 07 May 2024. Patient denies dysuria, hematuria or flank pain. Review of Systems Musculoskeletal: Positive for back pain. All other systems reviewed and are negative. Objective BP 118/74 Pulse 84 Temp 36.2 C (97.2 F) Resp 16 Wt 74.3 kg (163 lb 12.8 oz) SpO2 96% BMI 23.50 kg/m Physical Exam Vitals and nursing note reviewed. Constitutional: Appearance: Normal appearance. He is normal weight. HENT: Head: Normocephalic and atraumatic. Nose: Nose normal. Mouth/Throat: Mouth: Mucous membranes are moist. Pharynx: Oropharynx is clear. Eyes: Extraocular Movements: Extraocular movements intact. Conjunctiva/sclera: Conjunctivae normal. Pupils: Pupils are equal, round, and reactive to light. Cardiovascular: Rate and Rhythm: Normal rate. Pulses: Normal pulses. Pulmonary: Effort: Pulmonary effort is normal. Breath sounds: Normal breath sounds. Musculoskeletal: General: Tenderness present. No swelling, deformity or signs of injury. Normal range of motion. Cervical back: Normal range of motion and neck supple. Right lower leg: No edema. Left lower leg: No edema. Comments: Clearly reproducible tenderness to the bilateral paravertebral muscles is noted to the inferior lumbar back at the level of L3-L5. There is no crepitus or deformity noted with palpation of the lumbar spine. Overlying skin is clear without erythema or ecchymosis. MSP to the bilateral legs is fully intact and muscle strength is 5/5. Gait and station are slightly antalgic secondary to stiffness and pain. Skin: General: Skin is warm and dry. Capillary Refill: Capillary refill takes less than 2 seconds. Findings: No bruising or erythema. Neurological: General: No focal deficit present. Mental Status: He is alert and oriented to person, place, and time. Sensory: No sensory deficit. Motor: No weakness. Coordination: Coordination normal. Gait: Gait abnormal. Psychiatric: Mood and Affect: Mood normal. Behavior: Behavior normal. Thought Content: Thought content normal. Judgment: Judgment normal. Assessment and Plan Physical exam findings as noted above. X-ray lumbar spine is negative for acute findings, however the radiologist does report possible new mild L5 superior endplate compression deformity. Patient wasprovided with a prescription for Robaxin 500 mg and advised to schedule appointment with his primary care physician for further evaluation management if he experiences no improvement in his symptoms.Additional supportive care was discussed with patient verbalizes excellent understanding of same. CLINICAL IMPRESSION: Acute Bilateral Lumbar Back Pain ASSESSMENT/PLAN: 1. Acute bilateral low back pain without sciatica - ICD9: 724.2, 338.19, ICD10: M54.50 - XR LUMBAR GENERAL 3V AP/LAT/L5-S1 - METHOCARBAMOL 500 MG TABLET MDM Amount and/or Complexity of Data Reviewed Tests in the radiology section of CPT : ordered and reviewed Risk of Complications, Morbidity, and/or Mortality Presenting problems: low Diagnostic procedures: low Management options: low Steve Youssef PA-C documented in this encounterCommunity [facility] History of Present illness Narrative* Maximiliano Sotomayor Tech - 08/20/2024 8:40 AM EDT Radiology Service Progress Note PATIENT NAME: Jacob Landa DATE OF SERVICE: August 20, 2024 TIME: 8:48 AM PATIENT IDENTITY VERIFICATION COMPLETED USING TWO (2) IDENTIFIERS: Name and Date of confirmedby patient verbally. FALL SCREENING: Has the patient had 2 falls in the last year or 1 fall with injury or currently using an Ambulatory Assistive Device (Walker, Cane, Wheelchair, Crutches, etc.)? No PATIENT GENDER DATA: Assigned male at PATIENT RELEVANT IMPLANT DATA REVIEWED: Not Applicable PATIENT PRESENTS WITH AN IMPLANTABLE OR ATTACHED SQL SSIS DEVELOPER: No RADIOLOGY DEPARTMENT: General X-ray: Exam(s) Completed: Spine X-Ray(s): Lumbar AP / LAT / L5-S1 PERIPHERAL IV DATA: Not applicable SIGNED BY: Barry Rubalcava August 20, 2024 8:48 AM documented in this encounterCommunity [facility] Center[facility]-2025 NoteHNO ID: [id number] Author: MAXIMILIANO SOTOMAYOR Tech Service: ? Author Type: Technologist Type: Progress Notes Filed: 08/20/2024 08:58 Note Text: Radiology Service Progress Note PATIENT NAME: Jacob Landa DATE OF SERVICE: August 20, 2024 TIME: 8:48 AM PATIENT IDENTITY VERIFICATION COMPLETED USING TWO (2) IDENTIFIERS: Name and Date of confirmed by patient verbally. FALL SCREENING: Has the patient had 2 falls in the last year or 1 fall with injury or currently using an Ambulatory Assistive Device (Walker, Cane, Wheelchair, Crutches, etc.)? No PATIENT GENDER DATA: Assigned male at PATIENT RELEVANT IMPLANT DATA REVIEWED: Not Applicable PATIENT PRESENTS WITH AN IMPLANTABLE OR ATTACHED SQL SSIS DEVELOPER: No RADIOLOGY DEPARTMENT: General X-ray: Exam(s) Completed: Spine X-Ray(s): Lumbar AP / LAT / L5-S1 PERIPHERAL IV DATA: Not applicable SIGNED BY: Barry Rubalcava August 20, 2024 8:[address] [facility]05-13-2025 NoteHNO ID: [id number] Author: JOSUE OQUENDO RN Service: ? Author Type: Registered Nurse Type: Progress Notes Filed: 08/19/2024 14:20 Note Text: [facility] Telephonic Outreach Provider Action/FYI Patient identified by Name and Date of . Discussed care with patient. Program Details Chronic Disease Management Status: Enrolled Effective Dates: 07/17/2024 - present Responsible Staff: Josue Oquendo RN Support and Services: Advanced Illness Program Goals Targets Target Due Completed Completed By Outcome General education provided (managing stress, where to go/how to contact, etc.) 08/18/2024 08/19/2024 Josue Oquendo RN Complete Annual Medicare Wellness visit addressed 10/16/2024 08/19/2024 Josue Oquendo RN Complete/Scheduled Biannual PCP visit addressed 10/16/2024 08/19/2024 Josue Oquendo RN Complete/Scheduled End of Program Referral 10/16/2024 08/19/2024 Josue Oquendo RN Declined Referral Intake assessments completed: ADLs, Fall Risk, SDOH 08/18/2024 08/05/2024 Josue Oquendo RN Complete Patient-stated goal addressed (add comment) 10/16/2024 08/05/2024 Josue Oquendo RN Complete To not gain weight Assessments CDM Assessment Medications: Do you have any questions about taking your medications or which medications you should be taking?: No Do you need any medication refills at this time, including any of the medication you might take only when needed?: No Symptoms: Are you experiencing any new or worsening symptoms that you need to talk about today?: No ADLs No documentation this encounter Fall Risk No documentation this encounter SDOH No documentation this encounter Interventions The following were addressed during this visit: - End of Program Referral - Biannual PCP visit addressed - Annual Medicare Wellness visit addressed Josue Oquendo RN August 19, 2024 2:19 [facility]05-13-2025 History of Present illness Narrative* Josue Oquendo RN - 08/19/2024 2:19 PM EDT Images from the original note were not included. [facility] Telephonic Outreach Provider Action/FYI Patient identified by Name and Date of . Discussed care with patient. Program Details Chronic Disease Management Status: Enrolled Effective Dates: 07/17/2024 - present Responsible Staff: Josue Oquendo RN Support and Services: Advanced Illness Program Goals Targets Target Due Completed Completed By Outcome General education provided (managing stress, where to go/how to contact, etc.) 08/18/2024 08/19/2024 Josue Oquendo RN Complete Annual Medicare Wellness visit addressed 10/16/2024 08/19/2024 Josue Oquendo RN Complete/Scheduled Biannual PCP visit addressed 10/16/2024 08/19/2024 Josue Oquendo RN Complete/Scheduled End of Program Referral 10/16/2024 08/19/2024 Josue Oquendo RN Declined Referral Intake assessments completed: ADLs, Fall Risk, SDOH 08/18/2024 08/05/2024 Josue Oquendo RN Complete Patient-stated goal addressed (add comment) 10/16/2024 08/05/2024 Josue Oquendo RN Complete To not gain weight Assessments CD Assessment Medications: Do you have any questions about taking your medications or which medications you should be taking?:No Do you need any medication refills at this time, including any of the medication you might take only when needed?: No Symptoms: Are you experiencing any new or worsening symptoms that you need to talk about today?: No ADLs No documentation this encounter Fall Risk No documentation this encounter SDOH No documentation this encounter Interventions The following were addressed during this visit: - End of Program Referral - Biannual PCP visit addressed - Annual Medicare Wellness visit addressed Josue Oquendo RN August 19, 2024 2:19 PM documented in this encounterCommunity [facility]25 NotePatient Outreach ([facility]) JACOB LANDA ([id number]) 1955 M Date Time Provider Department 08/19/24 JOSUE OQUENDO [facility] During your visit today, we recorded the following information about you: Josue Oquendo RN 08/19/2024 2:20 PM Signed [facility] Telephonic Outreach Provider Action/ Patient identified by Name and Date of . Discussed care with patient. Program Details Chronic Disease Management Status: Enrolled Effective Dates: 07/17/2024 - present Responsible Staff: Josue Oquendo RN Support and Services: Advanced Illness Program Goals Targets Target Due Completed Completed By Outcome General education provided (managing stress, where to go/how to contact, etc.) 08/18/2024 08/19/2024 Josue Oquendo RN Complete Annual Medicare Wellness visit addressed 10/16/2024 08/19/2024 Josue Oquendo RN Complete/Scheduled Biannual PCP visit addressed 10/16/2024 08/19/2024 Josue Oquendo RN Complete/Scheduled End of Program Referral 10/16/2024 08/19/2024 Josue Oquendo RN Declined Referral Intake assessments completed: ADLs, Fall Risk, SDOH 08/18/2024 08/05/2024 Josue Oquendo RN Complete Patient-stated goal addressed (add comment) 10/16/2024 08/05/2024 Josue Oquendo RN Complete To not gain weight Assessments CDM Assessment Medications: Do you have any questions about taking your medications or which medications you should be taking?: No Do you need any medication refills at this time, including any of the medication you might take only when needed?: No Symptoms: Are you experiencing any new or worsening symptoms that you need to talk about today?: No ADLs No documentation this encounter Fall Risk No documentation this encounter SDOH No documentation this encounter Interventions The following were addressed during this visit: - End of Program Referral - Biannual PCP visit addressed - Annual Medicare Wellness visit addressed Josue Oquendo RN August 19, 2024 2:19 PM Allergies As of Date: 08/19/2024 Noted Allergy Reaction SEASONAL ALLERGIES 07/12/2023 14 - Other: See Comments Comments: Sneezing, watery eyes, runny nose. Date Reviewed: 08/05/2024 Reviewed by: Susan Sanchez MA - Fully Assessed Prescriptions as of 08/19/2024 - OLANZapine (ZYPREXA) 2.5 mg tablet TAKE 1 TABLET BY MOUTH ONCE DAILY AT BEDTIME - ezetimibe (ZETIA) 10 mg tablet Take 1 tablet by mouth once daily. - atorvastatin (LIPITOR) 80 mg tablet Take 1 tablet by mouth daily at bedtime. - metoprolol tartrate, short acting, (LOPRESSOR) 25 mg tablet Take 1 tablet by mouth two times a day. - fluticasone (FLONASE) 50 mcg/actuation nasal spray Use 1 Hutchins in each nostril once daily. - ferrous sulfate (SLOW FE) 137 mg (45 mg iron) TbER Take 1 tablet by mouth every other day. - ascorbic acid, vitamin C, (VITAMIN C) 500 mg tablet Take 1 tablet by mouth every other day. - ondansetron orally disintegrating (ZOFRAN ODT) 4 mg disintegrating tablet Take 1 tablet by mouth every 6 hours as needed for nausea/vomiting. - enteric contrast (will be provided with radiology test) For CT ABD/PEL W IVCON Routine order Administer, As Directed One Time Only, via Oral, Rectal, both Oral and Rectal, Enteric Tube, Stoma or Indwelling Catheter, Enteric Contrast as designated per enteric contrast guidelines - pantoprazole DR (PROTONIX) 40 mg tablet Take 1 tablet by mouth two times a day. - acetaminophen (TYLENOL) 500 mg tablet Take 500 mg by mouth every 6 hours as needed. Meds Comments as of 03/06/2016: Krill Oil 350 Mg Antacid Will follow Dr. Cebuls instructions regarding ASA Problem List As Of Date 08/19/2024 Noted Resolved Essential hypertension, benign [I10] Mixed hyperlipidemia [E78.2] Calculus of kidney [N20.0] 07/26/2015 Asthma [J45.909] 02/19/2006 Cough [R05.9] 02/19/2006 07/26/2015 INGUINAL HERNIA, UNILATERAL W/O GANGRENE/OBSTRU*01/21/2007 07/26/2015 UMBILICAL HERNIA W/O GANGRENE/OBSTRUCTION [K42.*01/21/2007 07/26/2015 Cellulitis and abscess of trunk [L03.319, L02.2*10/24/2007 07/26/2015 Boil of buttock [L02.32] 05/10/2009 07/26/2015 Epidermal inclusion cyst [L72.0] 05/10/2009 07/26/2015 Pyoderma, unspecified [L08.0] 05/10/2009 07/26/2015 Contact dermatitis and other eczema, due to uns*05/10/2009 07/26/2015 Other acne [L70.8] 05/10/2009 07/26/2015 GERD (gastroesophageal reflux disease) [K21.9] 07/12/2009 Personal history of colonic polyps [Z86.0100] 12/27/2009 Arthritis of right hand [M19.041] 08/04/2013 07/26/2015 Right carpal tunnel syndrome [G56.01] 08/04/2013 07/26/2015 Hematuria [R31.9] 07/20/2014 12/01/2016 BPH (benign prostatic hyperplasia) [N40.0] 07/20/2014 History of kidney stones [Z87.442] 07/20/2014 Aortic valve stenosis [I35.0] 07/26/2015 Situational depression [F43.21] 07/26/2015 Screening for colon cancer [Z12.11] 11/24/2016 Obes (more content not included)...[facility]04-29-2025 NoteHNO ID: [id number] Author: JOSUE OQUENDO RN Service: ? Author Type: Registered Nurse Type: Progress Notes Filed: 08/05/2024 12:56 Note Text: CDM ENROLLMENT Provider Action / FYI: Patient identified by name and date of . Discussed care with patient. Program Details Chronic Disease Management Status: Enrolled Effective Dates: 07/17/2024 - present Responsible Staff: Jouse Oquendo RN Support and Services: Advanced Illness Assessments CDM Assessment Medications: Do you have any questions about taking your medications or which medications you should be taking?: No Do you need any medication refills at this time, including any of the medication you might take only when needed?: No Social: It can be normal to feel anxious or down during a time like this. Would you like to talk to a mental health professional about how you have been feeling?: No Symptoms: Are you experiencing any new or worsening symptoms that you need to talk about today?: No ADLs Patients can perform the following activities without help: Dressing: Yes Bathing: Yes Doing laundry: Yes Climbing a flight of stairs: Yes Walking briskly: Yes Instrumental activities of daily living Do you drive a car?: Yes Do you need help from others to take care of things inside the house, for example: laundry, house cleaning, preparing meals?: No Do you need help from others with errands outside the house, for example: shopping for groceries or clothes, going medical appointments?: No Fall Risk One or more falls in the last year:: No Any near falls in the last year?: No Advised to use a cane or walker to get around safely:: No Feels unsteady when walking:: No Steadies self on furniture while walking at home:: No Worried about falling:: No Needs to push with hands when rising from a chair:: No Has trouble stepping up onto a curb:: No Often has to sutton to the toilet:: Yes Has lost some feeling in feet:: No Takes medicine that makes him/her feel lightheaded or more tired than usual:: No Takes medicine to sleep or improve mood:: No SDOH Financial Resource Strain How hard is it for you to pay for the very basics like food, housing, medical care, and heating?: Not hard at all Housing Stability In the last 12 months, was there a time when you were not able to pay the mortgage or rent on time?: No In the past 12 months, how many times have you moved where you were living?: 0 At any time in the past 12 months, were you homeless or living in a custodial (including now)?: No Transportation Needs In the past 12 months, has lack of transportation kept you from medical appointments or from getting medications?: No In the past 12 months, has lack of transportation kept you from meetings, work, or from getting things needed for daily living?: No Food Insecurity Within the past 12 months, you worried that your food would run out before you got the money to buy more.: Never true Within the past 12 months, the food you bought just didn't last and you didn't have money to get more.: Never true Utilities In the past 12 months has the electric, gas, oil, or water company threatened to shut off services in your home?: No Tobacco Use Patient reports that he has never smoked. He has never used smokeless tobacco. Interventions The following were addressed during this visit: - Intake assessments completed: ADLs, Fall Risk, SDOH - Patient-stated goal addressed (add comment) - Bi-Weekly Outreach (Recurring) Josue Oquendo RN August 05, 2024 12:56 [facility]04-29-2025 History of Present illness Narrative* Josue Oquendo RN - 08/05/2024 12:54 PM EDT CDM ENROLLMENT Provider Action / FYI: Patient identified by name and date of . Discussed care with patient. Program Details Chronic Disease Management Status: Enrolled Effective Dates: 07/17/2024 - present Responsible Staff: Josue Oquendo RN Support and Services: Advanced Illness Assessments CDM Assessment Medications: Do you have any questions about taking your medications or which medications you should be taking?:No Do you need any medication refills at this time, including any of the medication you might take only when needed?: No Social: It can be normal to feel anxious or down during a time like this. Would you like to talk to a mental health professional about how you have been feeling?: No Symptoms: Are you experiencing any new or worsening symptoms that you need to talk about today?: No ADLs Patients can perform the following activities without help: Dressing: Yes Bathing: Yes Doing laundry: Yes Climbing a flight of stairs: Yes Walking briskly: Yes Instrumental activities of daily living Do you drive a car?: Yes Do you need help from others to take care of things inside the house, for example: laundry, house cleaning, preparing meals?: No Do you need help from others with errands outside the house, for example: shopping for groceries orclothes, going medical appointments?: No Fall Risk One or more falls in the last year:: No Any near falls in the last year?: No Advised to use a cane or walker to get around safely:: No Feels unsteady when walking:: No Steadies self on furniture while walking at home:: No Worried about falling:: No Needs to push with hands when rising from a chair:: No Has trouble stepping up onto a curb:: No Often has to sutton to the toilet:: Yes Has lost some feeling in feet:: No Takes medicine that makes him/her feel lightheaded or more tired than usual:: No Takes medicine to sleep or improve mood:: No SDOH Financial Resource Strain How hard is it for you to pay for the very basics like food, housing, medical care, and heating?: Not hard at all Housing Stability In the last 12 months, was there a time when you were not able to pay the mortgage or rent on time?: No In the past 12 months, how many times have you moved where you were living?: 0 At any time in the past 12 months, were you homeless or living in a custodial (including now)?: No Transportation Needs In the past 12 months, has lack of transportation kept you from medical appointments or from getting medications?: No In the past 12 months, has lack of transportation kept you from meetings, work, or from getting things needed for daily living?: No Food Insecurity Within the past 12 months, you worried that your food would run out before you got the money to buymore.: Never true Within the past 12 months, the food you bought just didn't last and you didn't have money to get more.: Never true Utilities In the past 12 months has the [employer], gas, oil, or water Pricing Assistant threatened to shut off services in your home?: No Tobacco Use Patient reports that he has never smoked. He has never used smokeless tobacco. Interventions The following were addressed during this visit: - Intake assessments completed: ADLs, Fall Risk, SDOH - Patient-stated goal addressed (add comment) - Bi-Weekly Outreach (Recurring) Josue Oquendo RN August 05, 2024 12:56 PM [facility] NoteHNO ID: [id number] Author: MARCELA REAL PA Service: ? Author Type: Physician Pharmacy Technology Instructor Type: Progress Notes Filed: 08/05/2024 12:54 Note Text: [facility] Subjective Jacob Landa is a 69 year old male. Patient presents with: Derm Problem: left forearm scratched by puppy last night HPI 69-year-old male presents for scratch to left forearm. Patient states he was scratched by his puppy last night on his left forearm. He is a dialysis patient and has a fistula of the left upper arm. He states it has not matured yet, so he does not receive dialysis through it. The scratch does not cross the fistula. He has no pain in the arm. No drainage. No redness. Last tetanus was in April. He did put antibiotic ointment on it yesterday evening. No other complaint. Puppy up-to-date on vaccines. PAST MEDICAL HISTORY Diagnosis Date Advance directive discussed with patient 02/09/2022 Discussed 02/2022, packets provided AK (actinic keratosis) 09/07/2020 One on the right forearm dorsal, three on the left forearm dorsal and one left side of face hear hair line about eye level. Tx cryo 09/2020 Aortic valve stenosis 07/26/2015 Ascending aorta dilation 09/21/2023 09/21/2023: 4.1cm Asthma BPH (benign prostatic hyperplasia) 07/20/2014 Carpal tunnel syndrome of right wrist CKD (chronic kidney disease) stage 4, GFR 15-29 ml/min ([facility]) 01/03/2024 On dialysis and seeing Dr. Greenberg. Closed wedge compression fracture of T10 vertebra ([facility]) 07/12/2023 Coronary artery disease involving [place] coronary artery without angina pectoris Seeing Dr. Noland DDD (degenerative disc disease), lumbar 11/04/2019 Elevated blood sugar 03/11/2024 Esophageal adenocarcinoma (HCC) 08/09/2020 Essential hypertension, benign Family history of breast cancer 06/30/2024 Family history of ovarian cancer 06/30/2024 GERD (gastroesophageal reflux disease) 07/12/2009 History of kidney stones 07/20/2014 Iron deficiency anemia due to chronic blood loss 05/25/2020 Iron malabsorption 05/25/2020 Kidney stone Kyphosis (acquired) (postural) 07/30/[address] 03/11/2024 DPA: Lacho (step daughter) Malignant 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) 04/15/2020 Medicare annual wellness visit, subsequent 01/13/2021 Medical B eligibilty date 03/09/19 Date of last exam 01/13/2021 Mixed hyperlipidemia MRSA (methicillin resistant Staphylococcus aureus) 12/01/2016 treated with course of Linezolid beginning 10/29/16 Nonrheumatic aortic valve disorder On tube feeding diet 08/14/2020 History: 65 year old male s/p [place] esophagectomy, Pyloromyotomy, Jejunostomy tube placement for esophageal adenocarcinoma -Diet: Isosource 1.5 to 50 cc hour with 100 cc water flushes 8 times per day and Bene protein 3 times per day Removed 11/17/2020 Personal history of colonic polyps 12/27/2009 Rn Wound's nodules 03/30/2023 Will try pamelor Pleural effusion 03/11/2021 Stable in f/u studies. Pressure ulcer of unspecified buttock, stage 2 (HCC) 01/03/2024 Bilaterally. 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 4 07/23/2017 S/P TAVR (transcatheter aortic valve replacement) 04/30/2024 Needs dental prophylaxis. 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 Due to repeat anemia 01/01/2024 felt Eliquis could be stopped since risk did not out way benefit. Upper GI bleed 05/25/2020 PAST SURGICAL HISTORY Procedure Laterality Date ADENOIDECTOMY PRIMARY Adenoidectomy AORTIC VALVE RECONSTRUCTION 03/03/2019 s/p TAVR BYP OTH/THN VEIN CAROTID-SUBCLAVIAN 2002 Bypass graft carotid subcl COLONOSCOPY FLX DX W/COLLJ SPEC WHEN PFRMD 02/28/2013 COLONOSCOPY FLX DX W/COLLJ SPEC WHEN PFRMD 12/06/2016 repeat in 5 yrs COLONOSCOPY SCRN NOT HIGH RISK 06/01/2020 COLONOSCOPY W/BIOPSY SINGLE/MULTIPLE 02/22/2007 Diminutive polyp distal [id number] ECHO 01/08/2021 EGD 04/15/2020 HEART CATHETERIZATION 12/2018 with 2 stents IMPLANT MESH OPN HERNIA RPR/DEBRIDEMENT CLOSURE 03/06/2007 LAPAROSCOPY SURG RPR INITIAL INGUINAL HERNIA 03/06/2007 umbilical NM CARDIAC STRESS TEST 01/08/2021 PAST SURGICAL HISTORY OF Right 2016 incision and drainage right axillary abscess REPAIR ANORECTAL FISTULA W/PLUG 12/06/2016 REPAIR FIRST ABDOMINAL WALL HERNIA 03/06/2007 right STENT - CORONARY 2014 x3 AND x2 12/2018 TONSILLECTOMY PRIMARY/SECONDARY Tonsillectomy TOT/SUB ESOPHAGECTOMY W/THORACOT 08/09/2020 [place] esophagectomy, jejunostomy tube placement TOTAL HIP REPLACEMENT Left 02/15/2024 ALLERGIES Seasonal Allergies MEDICATIONS OLANZapine (ZYPREXA) 2.5 mg tablet TAKE 1 TABLET BY MOUTH ONCE DAILY AT BEDTIME ezetimibe (ZETIA) 10 mg tablet Take 1 tablet by mouth once daily. atorvastatin (LIPITOR) 80 mg tablet Take 1 tablet by mouth daily at bedtime. metoprolol tartrate, short acting, (LOP (more content not included)...[facility]04-29-2025 History of Present illness Narrative* Marcela Real PA - 08/05/2024 12:47 PM EDT Images from the original note were not included. [facility] Subjective Jacob Landa is a 69 year old male. Patient presents with: Derm Problem: left forearm scratched by puppy last night HPI 69-year-old male presents for scratch to left forearm. Patient states he was scratched by his puppy last night on his left forearm. He is a dialysis patient and has a fistula of the left upper arm. He states it has not matured yet, so he does not receive dialysis through it. The scratch does not cross the fistula. He has no pain in the arm. No drainage. No redness. Last tetanus was in April. He did put antibiotic ointment on it yesterday evening. No other complaint. Puppy up-to-date on vaccines. PAST MEDICAL HISTORY Diagnosis Date Advance directive discussed with patient 02/09/2022 Discussed 02/2022, packets provided AK (actinic keratosis) 09/07/2020 One on the right forearm dorsal, three on the left forearm dorsal and one left side of face hear hair line about eye level. Tx cryo 09/2020 Aortic valve stenosis 07/26/2015 Ascending aorta dilation 09/21/2023 09/21/2023: 4.1cm Asthma BPH (benign prostatic hyperplasia) 07/20/2014 Carpal tunnel syndrome of right wrist CKD (chronic kidney disease) stage 4, GFR 15-29 ml/min ([facility]) 01/03/2024 On dialysis and seeing Dr. Greenberg. Closed wedge compression fracture of T10 vertebra ([facility]) 07/12/2023 Coronary artery disease involving [place] coronary artery without angina pectoris Seeing Dr. Noland DDD (degenerative disc disease), lumbar 11/04/2019 Elevated blood sugar 03/11/2024 Esophageal adenocarcinoma ([facility]) 08/09/2020 Essential hypertension, benign Family history of breast cancer 06/30/2024 Family history of ovarian cancer 06/30/2024 GERD (gastroesophageal reflux disease) 07/12/2009 History of kidney stones 07/20/2014 Iron deficiency anemia due to chronic blood loss 05/25/2020 Iron malabsorption 05/25/2020 Kidney stone Kyphosis (acquired) (postural) 07/30/[address] 03/11/2024 DPA: Lacho (step daughter) Malignant neoplasm of lower third of esophagus ([facility]) 04/15/2020 Medicare annual wellness visit, subsequent 01/13/2021 Medical B eligibilty date 03/09/19 Date of last exam 01/13/2021 Mixed hyperlipidemia MRSA (methicillin resistant Staphylococcus aureus) 12/01/2016 treated with course of Linezolid beginning 10/29/16 Nonrheumatic aortic valve disorder On tube feeding diet 08/14/2020 History: 65 year old male s/p [place] esophagectomy, Pyloromyotomy, Jejunostomy tube placement for esophageal adenocarcinoma -Diet: Isosource 1.5 to 50 cc hour with 100 cc water flushes 8 times per day and Bene protein 3 times per day Removed 11/17/2020 Personal history of colonic polyps 12/27/2009 Rn Wound's nodules 03/30/2023 Will try pamelor Pleural effusion 03/11/2021 Stable in f/u studies. Pressure ulcer of unspecified buttock, stage 2 (HCC) 01/03/2024 Bilaterally. 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 4 07/23/2017 S/P TAVR (transcatheter aortic valve replacement) 04/30/2024 Needs dental prophylaxis. 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 Due to repeat anemia 01/01/2024felt Eliquis could be stopped since risk did not out way benefit. Upper GI bleed 05/25/2020 PAST SURGICAL HISTORY Procedure Laterality Date ADENOIDECTOMY PRIMARY <AGE 11 Adenoidectomy AORTIC VALVE RECONSTRUCTION 03/03/2019 s/p TAVR BYP OTH/THN VEIN CAROTID-SUBCLAVIAN 2002 Bypass graft carotid subcl COLONOSCOPY FLX DX W/COLLJ SPEC WHEN PFRMD 02/28/2013 COLONOSCOPY FLX DX W/COLLJ SPEC WHEN PFRMD 12/06/2016 repeat in 5 yrs COLONOSCOPY SCRN NOT HIGH RISK 06/01/2020 COLONOSCOPY W/BIOPSY SINGLE/MULTIPLE 02/22/2007 Diminutive polyp distal [id number] ECHO 01/08/2021 EGD 04/15/2020 HEART CATHETERIZATION 12/2018 with 2 stents IMPLANT MESH OPN HERNIA RPR/DEBRIDEMENT CLOSURE 03/06/2007 LAPAROSCOPY SURG RPR INITIAL INGUINAL HERNIA 03/06/2007 umbilical NM CARDIAC STRESS TEST 01/08/2021 PAST SURGICAL HISTORY OF Right 2016 incision and drainage right axillary abscess REPAIR ANORECTAL FISTULA W/PLUG 12/06/2016 REPAIR FIRST ABDOMINAL WALL HERNIA 03/06/2007 right STENT - CORONARY 2014 x3 & x2 12/2018 TONSILLECTOMY PRIMARY/SECONDARY <AGE 11 Tonsillectomy TOT/SUB ESOPHAGECTOMY W/THORACOT 08/09/2020 [facility] Roger esophagectomy, jejunostomy tube placement TOTAL HIP REPLACEMENT Left 02/15/2024 ALLERGIES Seasonal Allergies MEDICATIONS OLANZapine (ZYPREXA) 2.5 mg tablet TAKE 1 TABLET BY MOUTH ONCE DAILY AT BEDTIME ezetimibe (ZETIA) 10 mg tablet Take 1 tablet by mouth once daily. atorvastatin (LIPITOR) 80 mg tablet Take 1 tablet by mouth daily at bedtime. metoprolol tartrate, short acting, (LOPRESSOR) 25 mg tablet Take 1 tablet by mouth two times a day. fluticasone (FLONASE) 50 mcg/actuation nasal spray Use 1 [place]ins in each nostril once daily. ferrous sulfate (SLOW FE) 137 mg (45 mg iron) TbER Take 1 tablet by mouth every other day. ascorbic acid, vitamin C, (VITAMIN C) 500 mg tablet Take 1 tablet by mouth every other day. ondansetron orally disintegrating (ZOFRAN ODT) 4 mg disintegrating tablet Take 1 tablet by mouth every 6 hours as needed for nausea/vomiting. pantoprazole DR (PROTONIX) 40 mg tablet Take 1 tablet by mouth two times a day. acetaminophen (TYLENOL) 500 mg tablet Take 500 mg by mouth every 6 hours as needed. mupirocin (BACTROBAN) 2 % ointment Apply to affected area three times a day for 7 days. doxycycline monohydrate 100 mg tablet Take 1 tablet by mouth two times a day for 5 days. enteric contrast (will be provided with radiology test) For CT ABD/PEL W IVCON Routine order Administer, As Directed One Time Only, via Oral, Rectal, both Oral and Rectal, Enteric Tube, Stoma or Indwelling Catheter, Enteric Contrast as designated per enteric contrast guidelines (Patient not taking:Reported on 06/11/2024) FAMILY HISTORY Problem Relation Age of Onset Cancer Mother OVARIAN AND THYROID CA Breast Cancer Mother Ischemic Heart Disease Father from Cerebral Hemmorrhage age 50 other (mva) Brother Cancer Sister Bone Marrow CA at 59 y/o Ischemic Heart Disease Sister 49 at 57y/o No Known Problems Sister Thyroid Sister Cancer Paternal Aunt cancer of colon other (unkown) Brother Social History Tobacco Use Smoking status: Never Smokeless tobacco: Never Vaping Use Vaping status: Never Used Substance Use Topics Alcohol use: Not Currently Comment: none Drug use: No Review of Systems Constitutional: Negative for chills and fever. Skin: Positive for wound. Objective BP 122/64 Pulse 90 Temp 36.8 C (98.2 F) Resp 16 Wt 75.3 kg (166 lb 0.1 oz) SpO2 98% BMI23.82 kg/m Physical Exam Vitals and nursing note reviewed. Constitutional: General: He is not in acute distress. Appearance: Normal appearance. He is not toxic-appearing. Cardiovascular: Comments: Left arm AV fistula with palpable thrill Skin: General: Skin is warm and dry. Findings: Abrasion and wound present. Comments: Several superficial abrasions/scratches to left dorsal forearm. No drainage. No fluctuance. No lymphatic streaking. Neurological: Mental Status: He is alert. {ASSESSMENT/PLAN: 1. Dog scratch - ICD9: 919.0, E906.8, ICD10: W54.8XXA (primary diagnosis) - Dog up-to-date on vaccines - Patient's last tetanus in 04/2024. - Patient immunocompromised, on dialysis. States in April his dog scratched him and it got infected. Will cover for potential infection. - Rx doxycycline, Rx mupirocin oint - Follow-up if no improved - Given red flag symptoms and when to go to ER 2. Visit for wound check - ICD9: V58.89, ICD10: Z51.89 -See above Diagnosis and treatment plan were discussed and questions were answered to the patient's satisfaction. Pt acknowledged understanding of concepts and follow up plan. Specific signs and symptoms that would indicate the need for higher level of care were discussed in detail warranting prompt ER evaluation. SHEILA Hartley History and Record Review External record(s) reviewed: prior outpatient record. Differential Diagnoses - Dog scratch is more likely for the following reason(s): suggested by H&P - Lymphangitis, cellulitis is less likely for the following reason(s): H&P not suggestive Disposition The patient was discharged. Procedures [facility] NotePatient Outreach ([facility]) JACOB LANDA ([id number]) 1955 M Date Time Provider Department 08/05/24 JOSUE OQUENDO During your visit today, we recorded the following information about you: Josue Oquendo RN 08/05/2024 12:56 PM Signed CDM ENROLLMENT Provider Action / FYI: Patient identified by name and date of . Discussed care with patient. Program Details Chronic Disease Management Status: Enrolled Effective Dates: 07/17/2024 - present Responsible Staff: Josue Oquendo RN Support and Services: Advanced Illness Assessments CDM Assessment Medications: Do you have any questions about taking your medications or which medications you should be taking?: No Do you need any medication refills at this time, including any of the medication you might take only when needed?: No Social: It can be normal to feel anxious or down during a time like this. Would you like to talk to a mental health professional about how you have been feeling?: No Symptoms: Are you experiencing any new or worsening symptoms that you need to talk about today?: No ADLs Patients can perform the following activities without help: Dressing: Yes Bathing: Yes Doing laundry: Yes Climbing a flight of stairs: Yes Walking briskly: Yes Instrumental activities of daily living Do you drive a car?: Yes Do you need help from others to take care of things inside the house, for example: laundry, house cleaning, preparing meals?: No Do you need help from others with errands outside the house, for example: shopping for groceries or clothes, going medical appointments?: No Fall Risk One or more falls in the last year:: No Any near falls in the last year?: No Advised to use a cane or walker to get around safely:: No Feels unsteady when walking:: No Steadies self on furniture while walking at home:: No Worried about falling:: No Needs to push with hands when rising from a chair:: No Has trouble stepping up onto a curb:: No Often has to sutton to the toilet:: Yes Has lost some feeling in feet:: No Takes medicine that makes him/her feel lightheaded or more tired than usual:: No Takes medicine to sleep or improve mood:: No SDOH Financial Resource Strain How hard is it for you to pay for the very basics like food, housing, medical care, and heating?: Not hard at all Housing Stability In the last 12 months, was there a time when you were not able to pay the mortgage or rent on time?: No In the past 12 months, how many times have you moved where you were living?: 0 At any time in the past 12 months, were you homeless or living in a custodial (including now)?: No Transportation Needs In the past 12 months, has lack of transportation kept you from medical appointments or from getting medications?: No In the past 12 months, has lack of transportation kept you from meetings, work, or from getting things needed for daily living?: No Food Insecurity Within the past 12 months, you worried that your food would run out before you got the money to buy more.: Never true Within the past 12 months, the food you bought just didn't last and you didn't have money to get more.: Never true Utilities In the past 12 months has the [employer], gas, oil, or water Pricing Assistant threatened to shut off services in your home?: No Tobacco Use Patient reports that he has never smoked. He has never used smokeless tobacco. Interventions The following were addressed during this visit: - Intake assessments completed: ADLs, Fall Risk, SDOH - Patient-stated goal addressed (add comment) - Bi-Weekly Outreach (Recurring) Josue Oquendo RN August 05, 2024 12:56 PM Allergies As of Date: 08/05/2024 Noted Allergy Reaction SEASONAL ALLERGIES 07/12/2023 14 - Other: See Comments Comments: Sneezing, watery eyes, runny nose. Date Reviewed: 08/05/2024 Reviewed by: Susan Sanchez MA - Fully Assessed Prescriptions as of 08/05/2024 - mupirocin (BACTROBAN) 2 % ointment Apply to affected area three times a day for 7 days. - doxycycline monohydrate 100 mg tablet Take 1 tablet by mouth two times a day for 5 days. - OLANZapine (ZYPREXA) 2.5 mg tablet TAKE 1 TABLET BY MOUTH ONCE DAILY AT BEDTIME - ezetimibe (ZETIA) 10 mg tablet Take 1 tablet by mouth once daily. - atorvastatin (LIPITOR) 80 mg tablet Take 1 tablet by mouth daily at bedtime. - metoprolol tartrate, short acting, (LOPRESSOR) 25 mg tablet Take 1 tablet by mouth two times a day. - fluticasone (FLONASE) 50 mcg/actuation nasal spray Use 1 Hutchins in each nostril once daily. - ferrous sulfate (SLOW FE) 137 mg (45 mg iron) TbER Take 1 tablet by mouth every other day. - ascorbic acid, vitamin C, (VITAMIN C) 500 mg tablet Take 1 tablet by mouth every other day. - ondansetron orally disintegrating (ZOFRAN ODT) 4 mg disintegrating tablet Take 1 tablet by mo (more content not included)...[facility] 07-29-2024 NoteHNO ID: [id number] Author: ALBERTA CANDELARIA MA Service: ? Author Type: Mechanical Engineering Advisor Type: Progress Notes Filed: 07/29/2024 16:19 Note Text: Scan on 07/22/2024 5:29 PM by ProviderDanette PA-C: Consultation - General Surgery - follow up on AVF on 07/01/2024 Alberta Candelaria [facility]04-22-2025 History of Present illness Narrative* Alberta Candelaria MA - 07/29/2024 4:18 PM EDT Scan on 07/22/2024 5:29 PM by ProviderDanette PA-C: Consultation - General Surgery - follow up on AVF on 07/01/2024 Alberta Candelaria MA [facility] Evaluation note* Diagnosis Onset Date Resolution Status Admit Date AV fistula acute July 22 2:11pm AV fistula acute September 02, 2024 1:47pm Tunneled central venous cath eter present acute October 15, 2024 9 :01am [employer] Work Phone: 1(828) 642-716004-04-2025 Telephone encounter Note* Telephone Encounter - Brandie Bailey RN - 07/11/2024 9:44 AM EDT See TE 07/11/2024. Brandie Bailey RN [facility]04-04-[facility] Miscellaneous Notes* Telephone Encounter - Brandie Bailey RN - 07/11/2024 9:44 AM EDT See TE 07/11/2024. Brandie Bailey RN documented in [facility]04-[facility]25 Telephone encounter Note * Telephone Encounter - Brandie Bailey RN - 07/11/2024 9:42 AM EDT Patient calls and notified of results and providers instructions. Patient verbalizes understanding.Patient has scheduled mammogram and US. Will wait to schedule MRI-Brain once insurance authorization received. Brandie Bailey RN [facility]04-04-20[facility] Telephone encounter Note* Telephone Encounter - Stacia Adame MD - 07/11/2024 7:57 AM EDT Patient's workup for gynecomastia shows normal testosterone level, estrogen, and thyroid testing. Prolactin level and hormone levels FSH and LH are elevated. He is in Olanzapine which has some possibility to cause high prolactin level. Recommend MRI of the brain without IV contrast due to his stage IV CKD for further workup of elevated prolactin to rule out pituitary mass. Needs to f/u with mammogram and US as recommended by PCP. [facility]04-03-[facility] Telephone encounter Note* Telephone Encounter - Isa Godoy LPN - 07/10/2024 7:47 AM EDT Prescription Refill Information The patient has been identified by name and date of : Yes Caregiver verified no other encounters exist for this prescription request: Yes Caregiver confirmed with patient/requestor that no other refills are due, in the near future, with this provider at this time: Yes The last office visit in the department: 05/02/2024 Does the patient have a future office visit with this provider/department: Yes Requested Prescriptions Pending Prescriptions Disp Refills OLANZapine (ZYPREXA) 2.5 mg tablet [Pharmacy Med Name: OLANZapine 2.5 MG Oral Tablet] 30 tablet 0 Sig: TAKE 1 TABLET BY MOUTH ONCE DAILY AT BEDTIME Isa Godoy LPN July 10, 2024 7:48 AM [facility]04-03[facility] Miscellaneous Notes* Telephone Encounter - Isa Godoy LPN - 07/10/2024 7:47 AM EDT Prescription Refill Information The patient has been identified by name and date of : Yes Caregiver verified no other encounters exist for this prescription request: Yes Caregiver confirmed with patient/requestor that no other refills are due, in the near future, with this provider at this time: Yes The last office visit in the department: 05/02/2024 Does the patient have a future office visit with this provider/department: Yes Requested Prescriptions Pending Prescriptions Disp Refills OLANZapine (ZYPREXA) 2.5 mg tablet [Pharmacy Med Name: OLANZapine 2.5 MG Oral Tablet] 30 tablet 0 Sig: TAKE 1 TABLET BY MOUTH ONCE DAILY AT BEDTIME Isa Godoy LPN July 10, 2024 7:48 AM documented in this encounterCommunity [facility]03-28-2025 NoteHNO ID: [id number] Author: ALBERTA CANDELARIA MA Service: ? Author Type: Mechanical Engineering Advisor Type: Progress Notes Filed: 07/04/2024 12:23 Note Text: Scan on 06/30/2024 7:24 AM by Danette Houston PAHailyC: Consultation - Vascular Medicine/Vascular Surgery Scan on 06/30/2024 6:11 PM by Danette Houston PA-C: BENITEZ Candelaria, [facility]03-28-2025 History of Present illness Narrative* Alberta Candelaria MA - 07/04/2024 12:15 PM EDT Scan on 06/30/2024 7:24 AM by Provider, OPAL Samaniego: Consultation - Vascular Medicine/Vascular Surgery Scan on 06/30/2024 6:11 PM by Provider, OPAL Samaniego: BENITEZ Candelaria MA documented in this encounterCommunity [facility]03-24-2025 NoteHNO ID: [id number] Author: YAW SINGH MD Service: ? Author Type: Physician Type: Progress Notes Filed: 06/30/2024 16:49 Note Text: Chief Complaint Patient presents with: Breast Problem HPI Jacob Landa is a 69 year old male who presents here today for right breast sore/swollen x 1 month . Has felt a lump in the right breast. No fevers, chills, nipple discharge, skin dimpling. No new meds. No blood from the nipple. The lump has been tender. Patient with hx of CAD, hyperlipidemia, aortic valve stenosis, asthma, GERD, esophageal cancer, DDD, depression, BPH and those as below. Mom had breast cancer and ovarian cancer. Patient quentin noticed that when he sits he sometimes gets burning pain in his butt were he had the skin ulcers. He hs gotten a gel pad to sit on and this as improved this sensation a lot. Past medical history, appointments, medications, allergies reviewed. Previous Medical History PAST MEDICAL HISTORY Diagnosis Date Advance directive discussed with patient 02/09/2022 Discussed 02/2022, packets provided AK (actinic keratosis) 09/07/2020 One on the right forearm dorsal, three on the left forearm dorsal and one left side of face hear hair line about eye level. Tx cryo 09/2020 Aortic valve stenosis 07/26/2015 Ascending aorta dilation (HCC) 09/21/2023 09/21/2023: 4.1cm Asthma BPH (benign prostatic hyperplasia) 07/20/2014 Carpal tunnel syndrome of right wrist CKD (chronic kidney disease) stage 4, GFR 15-29 ml/min (HCC) 01/03/2024 On dialysis and seeing Dr. Greenberg. Closed wedge compression fracture of T10 vertebra (HCC) 07/12/2023 Coronary artery disease involving [place] coronary artery without angina pectoris Seeing Dr. Ludin GALVEZ (degenerative disc disease), lumbar 11/04/2019 Elevated blood sugar 03/11/2024 Esophageal adenocarcinoma (HCC) 08/09/2020 Essential hypertension, benign GERD (gastroesophageal reflux disease) 07/12/2009 History of kidney stones 07/20/2014 Iron deficiency anemia due to chronic blood loss 05/25/2020 Iron malabsorption 05/25/2020 Kidney stone Kyphosis (acquired) (postural) 07/30/[address] 03/11/2024 DPA: Lacho (step daughter) Malignant neoplasm of lower third of esophagus ([facility]) 04/15/2020 Medicare annual wellness visit, subsequent 01/13/2021 Medical B eligibilty date 03/09/19 Date of last exam 01/13/2021 Mixed hyperlipidemia MRSA (methicillin resistant Staphylococcus aureus) 12/01/2016 treated with course of Linezolid beginning 10/29/16 Nonrheumatic aortic valve disorder On tube feeding diet 08/14/2020 History: 65 year old male s/p [place] esophagectomy, Pyloromyotomy, Jejunostomy tube placement for esophageal adenocarcinoma -Diet: Isosource 1.5 to 50 cc hour with 100 cc water flushes 8 times per day and Bene protein 3 times per day Removed 11/17/2020 Personal history of colonic polyps 12/27/2009 Rn Wound's nodules 03/30/2023 Will try pamelor Pleural effusion 03/11/2021 Stable in f/u studies. Pressure ulcer of unspecified buttock, stage 2 ([facility]) 01/03/2024 Bilaterally. 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 4 07/23/2017 S/P TAVR (transcatheter aortic valve replacement) 04/30/2024 Needs dental prophylaxis. 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 Due to repeat anemia 01/01/2024 felt Eliquis could be stopped since risk did not out way benefit. Upper GI bleed 05/25/2020 Previous Surgical History PAST SURGICAL HISTORY Procedure Laterality Date ADENOIDECTOMY PRIMARY Adenoidectomy AORTIC VALVE RECONSTRUCTION 03/03/2019 s/p TAVR BYP OTH/THN VEIN CAROTID-SUBCLAVIAN 2002 Bypass graft carotid subcl COLONOSCOPY FLX DX W/COLLJ SPEC WHEN PFRMD 02/28/2013 COLONOSCOPY FLX DX W/COLLJ SPEC WHEN PFRMD 12/06/2016 repeat in 5 yrs COLONOSCOPY SCRN NOT HIGH RISK 06/01/2020 COLONOSCOPY W/BIOPSY SINGLE/MULTIPLE 02/22/2007 Diminutive polyp distal [id number] ECHO 01/08/2021 EGD 04/15/2020 HEART CATHETERIZATION 12/2018 with 2 stents IMPLANT MESH OPN HERNIA RPR/DEBRIDEMENT CLOSURE 03/06/2007 LAPAROSCOPY SURG RPR INITIAL INGUINAL HERNIA 03/06/2007 umbilical NM CARDIAC STRESS TEST 01/08/2021 PAST SURGICAL HISTORY OF Right 2016 incision and drainage right axillary abscess REPAIR ANORECTAL FISTULA W/PLUG 12/06/2016 REPAIR FIRST ABDOMINAL WALL HERNIA 03/06/2007 right STENT - CORONARY 2014 x3 AND x2 12/2018 TONSILLECTOMY PRIMARY/SECONDARY Tonsillectomy TOT/SUB ESOPHAGECTOMY W/THORACOT 08/09/2020 [place] esophagectomy, jejunostomy tube placement TOTAL HIP REPLACEMENT Left 02/15/2024 Family History FAMILY HISTORY Problem Relation Age of Onset Cancer Mother OVARIAN AND THYROID CA Breast Cancer Mother Ischemic Heart Disease Father from Cerebral Hemmorrhage age 50 other (mva) Brother Cancer Sister Bone Marrow CA (more content not included)...[facility] 06-30-2024 History of Present illness Narrative* Yaw Singh MD - 06/30/2024 1:19 PM EDT Chief Complaint Patient presents with: Breast Problem HPI Jacob Landa is a 69 year old male who presents here today for right breast sore/swollen x 1 month. Has felt a lump in the right breast. No fevers, chills, nipple discharge, skin dimpling. No new meds. No blood from the nipple. The lump has been tender. Patient with hx of CAD, hyperlipidemia, aortic valve stenosis, asthma, GERD, esophageal cancer, DDD, depression, BPH and those as below. Mom had breast cancer and ovarian cancer. Patient saavedra noticed that when he sits he sometimes gets burning pain in his butt were he had the skin ulcers. He hs gotten a gel pad to sit on and this as improved this sensation a lot. Past medical history, appointments, medications, allergies reviewed. Previous Medical History PAST MEDICAL HISTORY Diagnosis Date Advance directive discussed with patient 02/09/2022 Discussed 02/2022, packets provided AK (actinic keratosis) 09/07/2020 One on the right forearm dorsal, three on the left forearm dorsal and one left side of face hear hair line about eye level. Tx cryo 09/2020 Aortic valve stenosis 07/26/2015 Ascending aorta dilation (HCC) 09/21/2023 09/21/2023: 4.1cm Asthma BPH (benign prostatic hyperplasia) 07/20/2014 Carpal tunnel syndrome of right wrist CKD (chronic kidney disease) stage 4, GFR 15-29 ml/min (HCC) 01/03/2024 On dialysis and seeing Dr. Greenberg. Closed wedge compression fracture of T10 vertebra (HCC) 07/12/2023 Coronary artery disease involving [place] coronary artery without angina pectoris Seeing Dr. Noland DDD (degenerative disc disease), lumbar 11/04/2019 Elevated blood sugar 03/11/2024 Esophageal adenocarcinoma (HCC) 08/09/2020 Essential hypertension, benign GERD (gastroesophageal reflux disease) 07/12/2009 History of kidney stones 07/20/2014 Iron deficiency anemia due to chronic blood loss 05/25/2020 Iron malabsorption 05/25/2020 Kidney stone Kyphosis (acquired) (postural) 07/30/[address] 03/11/2024 DPA: Lacho (step daughter) Malignant 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) 04/15/2020 Medicare annual wellness visit, subsequent 01/13/2021 Medical B eligibilty date 03/09/19 Date of last exam 01/13/2021 Mixed hyperlipidemia MRSA (methicillin resistant Staphylococcus aureus) 12/01/2016 treated with course of Linezolid beginning 10/29/16 Nonrheumatic aortic valve disorder On tube feeding diet 08/14/2020 History: 65 year old male s/p [place] esophagectomy, Pyloromyotomy, Jejunostomy tube placement for esophageal adenocarcinoma -Diet: Isosource 1.5 to 50 cc hour with 100 cc water flushes 8 times per day and Bene protein 3 times per day Removed 11/17/2020 Personal history of colonic polyps 12/27/2009 Rn Wound's nodules 03/30/2023 Will try pamelor Pleural effusion 03/11/2021 Stable in f/u studies. Pressure ulcer of unspecified buttock, stage 2 (HCC) 01/03/2024 Bilaterally. 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 4 07/23/2017 S/P TAVR (transcatheter aortic valve replacement) 04/30/2024 Needs dental prophylaxis. 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 Due to repeat anemia 01/01/2024felt Eliquis could be stopped since risk did not out way benefit. Upper GI bleed 05/25/2020 Previous Surgical History PAST SURGICAL HISTORY Procedure Laterality Date ADENOIDECTOMY PRIMARY <AGE 11 Adenoidectomy AORTIC VALVE RECONSTRUCTION 03/03/2019 s/p TAVR BYP OTH/THN VEIN CAROTID-SUBCLAVIAN 2002 Bypass graft carotid subcl COLONOSCOPY FLX DX W/COLLJ SPEC WHEN PFRMD 02/28/2013 COLONOSCOPY FLX DX W/COLLJ SPEC WHEN PFRMD 12/06/2016 repeat in 5 yrs COLONOSCOPY SCRN NOT HIGH RISK 06/01/2020 COLONOSCOPY W/BIOPSY SINGLE/MULTIPLE 02/22/2007 Diminutive polyp distal [id number] ECHO 01/08/2021 EGD 04/15/2020 HEART CATHETERIZATION 12/2018 with 2 stents IMPLANT MESH OPN HERNIA RPR/DEBRIDEMENT CLOSURE 03/06/2007 LAPAROSCOPY SURG RPR INITIAL INGUINAL HERNIA 03/06/2007 umbilical NM CARDIAC STRESS TEST 01/08/2021 PAST SURGICAL HISTORY OF Right 2016 incision and drainage right axillary abscess REPAIR ANORECTAL FISTULA W/PLUG 12/06/2016 REPAIR FIRST ABDOMINAL WALL HERNIA 03/06/2007 right STENT - CORONARY 2014 x3 & x2 12/2018 TONSILLECTOMY PRIMARY/SECONDARY <AGE 11 Tonsillectomy TOT/SUB ESOPHAGECTOMY W/THORACOT 08/09/2020 [place] esophagectomy, jejunostomy tube placement TOTAL HIP REPLACEMENT Left 02/15/2024 Family History FAMILY HISTORY Problem Relation Age of Onset Cancer Mother OVARIAN AND THYROID CA Breast Cancer Mother Ischemic Heart Disease Father from Cerebral Hemmorrhage age 50 other (mva) Brother Cancer Sister Bone Marrow CA at 59 y/o Ischemic Heart Disease Sister 49 at 57y/o No Known Problems Sister Thyroid Sister Cancer Paternal Aunt cancer of colon other (unkown) Brother Patient Allergies ALLERGIES Allergen Reactions Seasonal Allergies Other: See Comments Sneezing, watery eyes, runny nose. Current Medications Current Outpatient Medications on File Prior to Visit Medication Sig OLANZapine (ZYPREXA) 2.5 mg tablet Take 1 tablet by mouth daily at bedtime. atorvastatin (LIPITOR) 80 mg tablet Take 1 tablet by mouth daily at bedtime. metoprolol tartrate, short acting, (LOPRESSOR) 25 mg tablet Take 1 tablet by mouth two times a day. fluticasone (FLONASE) 50 mcg/actuation nasal spray Use 1 Hutchins in each nostril once daily. (Patienttaking differently: Use 1 Hutchins in each nostril as needed.) ferrous sulfate (SLOW FE) 137 mg (45 mg iron) TbER Take 1 tablet by mouth every other day. ascorbic acid, vitamin C, (VITAMIN C) 500 mg tablet Take 1 tablet by mouth every other day. ondansetron orally disintegrating (ZOFRAN ODT) 4 mg disintegrating tablet Take 1 tablet by mouth every 6 hours as needed for nausea/vomiting. ezetimibe (ZETIA) 10 mg tablet Take 1 tablet by mouth once daily. nitroglycerin sublingual (NITROQUICK) 0.4 mg SL tablet Dissolve 1 tablet under the tongue every 5 minutes as needed for chest pain. (Patient not taking: Reported on 06/11/2024) enteric contrast (will be provided with radiology test) For CT ABD/PEL W IVCON Routine order Administer, As Directed One Time Only, via Oral, Rectal, both Oral and Rectal, Enteric Tube, Stoma or Indwelling Catheter, Enteric Contrast as designated per enteric contrast guidelines (Patient not taking:Reported on 06/11/2024) pantoprazole DR (PROTONIX) 40 mg tablet Take 1 tablet by mouth two times a day. acetaminophen (TYLENOL) 500 mg tablet Take 500 mg by mouth every 6 hours as needed. No current facility-administered medications on file prior to visit. Social History Social History Tobacco Use Smoking status: Never Smokeless tobacco: Never Vaping Use Vaping status: Never Used Substance Use Topics Alcohol use: Not Currently Comment: none Drug use: No Review of Symptoms REVIEW OF SYSTEMS See HPI EXAM: BP 112/74 Pulse 70 Temp 36.5 C (97.7 F) Resp 18 Wt 73.5 kg (162 lb) BMI 23.24 kg/m General Appearance: Well appearing, alert, in no acute distress, well-hydrated, well nourished.. Breast: No skin changes or dimpling, Negative findings: normal in size and symmetry, normal contourwith no evidence of flattening or dimpling, skin normal, nipples everted without rashes or discharge, and Positive findings: nodule smooth, firm, tender, well delineated from surrounding tissue, and located Right under the acerola.. Skin on butt: no pressure sore present. Health Maintenance List Shingrix Vaccine(1 of 2) Never done RSV Vaccine(1 - Risk 60-74 years 1-dose series) Never done Advance Directive Discussion due on 04/09/2024 Annual PCP Team Chronic Disease Visit due on 03/11/2025 Anxiety Screening due on 03/11/2025 LDL Cholesterol due on 04/17/2025 Colorectal Cancer Screening due on 06/01/2025 Serum Creatinine due on 06/11/2025 Hemoglobin/Hematocrit due on 06/11/2025 BP Controlled (<130/80) due on 06/11/2025 Diabetes Screening due on 06/12/2027 Lipid Screening due on 04/17/2029 DTaP,Tdap,Td Vaccine(5 - Td or Tdap) due on 05/07/2034 Spirometry Completed Influenza Vaccine Completed Hepatitis C Screening Completed Pneumococcal Vaccine: 50+ Completed Covid-19 Vaccine Discontinued Data reviewed A/P ASSESSMENT/PLAN: 1. Gynecomastia - ICD9: 611.1, ICD10: N62 (primary diagnosis) Check - THYROID STIMULATING HORMONE - FOLLICLE STIMULATING HORMONE - LUTEINIZING HORMONE - PROLACTIN - TESTOSTERONE, TOTAL BY IMMUNOASSAY (ADULT MALES, OR INDIVIDUALS ON TESTOSTERONE THERAPY) - ESTRADIOL-17B BLD - HCG QUANTITATIVE - ROCAEL DIAGNOSTIC BILATERAL - US BREAST LTD RIGHT 2. Subareolar mass of right breast - ICD9: 611.72, ICD10: N63.41 Check - ROCAEL DIAGNOSTIC BILATERAL - US BREAST LTD RIGHT 3. Esophageal adenocarcinoma (HCC) - ICD9: 150.9, ICD10: C15.9 Check - ROCAEL DIAGNOSTIC BILATERAL - US BREAST LTD RIGHT 4. Pain, unspecified - ICD9: 780.96, ICD10: R52 Check - THYROID STIMULATING HORMONE 5. 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 Family history of breast cancer - ICD9: V16.3, ICD10: Z80.3 Check - HCG QUANTITATIVE 7. Family history of ovarian cancer - ICD9: V16.41, ICD10: Z80.41 Check - HCG QUANTITATIVE 8. Family history of malignant neoplasm of ovary - ICD9: V16.41, ICD10: Z80.41 check - HCG QUANTITATIVE F/u next routine. Sooner if needed. Will await results for determination of next step. Advised pot that I think the burning pain he was getting on occasion was due to compression of one of the nerves on the area due to not having as much fat and muscle back there. Advised using a gel pad to avoid sitting on a hard surface. Yaw Singh MD I spent a total of 30 minutes on the date of the service which included preparing to see the patient, [id number] patient care, completing clinical documentation, performing a medically appropriate examination, counseling and educating the patient/family/caregiver and ordering medications, tests, or procedures. SENSITIVE EXAMINATION CONSENT: The sensitive examination was discussed with the Patient or Patient's Authorized Storage Garage Manager. Asapplicable, any other physician, advance practice provider, medical student, or other health professional student that will be observing or involved in the sensitive examination for educational or training purposes was discussed with the Patient or Authorized Storage Garage Manager. The Patient or Authorized Storage Garage Manager has agreed to proceed with the sensitive examination. Yaw Singh MD documented in this [facility] Consult note Author Antwan Pettit [facility] Note Date/Time June 30, 2024 9:3 5am [facility] Medical Records Department [address] [place] [address] Anesthesia Postop Eval I 06/30/24 0933 MR#: [id number] Acct: [id number] Name: JACOB LANDA Rep #:[id number] : 1955 69 From: Antwan Pettit CRNA PCP: Dr. Yaw Singh MD Status:REG SDC Y Race: C Location: [place] [address] Anesthesia: Postop Eval I Current Vital Signs Temperature: 97.2 F Pulse Rate: 85 Blood Pressure: 102/75 Respiratory Rate: 20 Pulse Ox: 96 Oxygen Delivery Method: Room Air Assessment Airway patent: Yes Spontaneous unlabored respirations: Yes Mental status: Awake and Calm nausea: No Vomiting: No Anesthesia Complication: Yes Anesthesia Complication Comment:: right nares with epistaxis from npa Fluid Hydration Crystalloid volume administer (ml): 250 Total IV fluid infused: 250 Progress Note Anesthesia document: Postop Eval 1 completed: Yes 06/30/24934 <Electronically signed by Antwan olson CRNA> Date _ Antwan Pettit CRNA Cosigner Signature: Date CC: ~ Signed [facility] Work Phone: 1(810) 433-323103-24-2025 Discharge summary Author Nikita [facility] Note Date/Time June 30, 2024 9:1 6am [facility] Medical Records Department [address] [place] [id number] Instructions for Home/Discharge Instructions 06/30/2413 MR#: [id number] Acct: [id number] Name: JACOB LANDA Rep #:[id number] : 1955 69 From: Nikita Jackson MD PCP: Dr. Yaw Singh MD Status:REG SDC Discharge Instructions Diet Discharge Diet: No restrictions Activity Lifting Restrictions: do not lift > 20 lbs with left arm for 14 days Additional Activity Instructions:: do not submerge incision for 14 days Dressing / Incision Call your doctor if your incision/area has: Sudden Increased Bleeding, IncreasedPain/ Swelling, Increased Redness and Foul Smelling Discharge Call your doctor if you observe: Fever of 101 or Higher, Coldness, Increased Pain and Numbness or Tingling Remove Dressing in: 2 days Follow Up Care Test Results: Test results from this visit will be discussed in further detail at your follow- up appointment, if applicable. Discharge Plan Admission Attending Provider: Nikita Jackson Primary Care Provider: Yaw Singh Instructions Print Language: Congolese Discharge Orders/Prescriptions Prescriptions: New oxycodone 5 mg tablet 5 mg PO Q8H PRN (Reason: pain) 2 Days Qty: 6 0RF Continued atorvastatin 80 mg tablet 80 mg PO QHS Qty: 90 3RF ezetimibe 10 mg tablet 10 mg PO DAILY Qty: 90 3RF ferrous sulfate 325 mg (65 mg iron) tablet 325 mg PO DAILY Qty: 90 3RF acetaminophen 500 mg tablet 1,000 mg PO Q8 PRN (Reason: pain) Rx Instructions: Take Tylenol this way for 5 to 7 days postoperatively and then okay to go back and use as needed amoxicillin 500 mg tablet 2,000 mg PO ONCE Qty: 4 0RF Rx Instructions: Take one hour prior to dental cleanings/procedure metoprolol tartrate 25 mg Tablet 25 mg PO BID Qty: 0 0RF pantoprazole 40 mg Tablet,Delayed Release (Dr/Ec) 40 mg PO BID Qty: 0 0RF polyethylene glycol 3350 [Miralax] 17 gram/dose powder 17 g PO DAILY PRN (Reason: constipation) ondansetron 4 mg tablet,disintegrating 4 mg PO Q8H PRN PRN (Reason: nausea and vomiting) nitroglycerin 0.4 mg tablet, sublingual 0.4 mg sublingual PRN PRN (Reason: angina) aspirin 81 mg Tablet,Chewable 81 mg PO BID Qty: 0 0RF Rx Instructions: Take for 30 days postop and then okay to discontinue Referrals / Follow Up: Yaw Singh MD [Primary Care Provider] - Disposition Disposition (needs filled in before D/C Order can be placed): Home, Self Care 06/30/24 0916<Electronically signed by Nikita Jackson MD>Nikita Jackson MD CC: Dr. Yaw Singh MD ~ Signed [facility] Work Phone: 1(900) 824-990103-24-2025 Consult note [facility] Medical Records Department [address] [place] [address] Anesthesia Postop Eval II 06/30/24 1015 MR#: [id number] Acct: [id number] Name: JACOB LANDA Rep #:[id number] : 1955 69 From: Tawny Covington PCP: Dr. Yaw Singh MD Status:REG SDC Y Race: C Location: [facility]03- Anesthesia Postop Eval I Sum Postop Eval Completion status Anesthesia document: Postop Eval 1 completed: Yes Anesthesia Postop Eval I Summary Anesthesia Postop Eval I Summary: Anesthesia Postop Eval I: Assessment Summary Airway patent Yes 06/30/24 09:34 MICROBIOLOGY QUALITY CONTROL [email or web address] Spontaneous unlabored Yes 06/30/24 09:34 MICROBIOLOGY QUALITY CONTROL TECHNICIAN.[email or web address] respirations Mental status Awake,Calm 06/30/24 09:34 MICROBIOLOGY QUALITY CONTROL TECHNICIAN.[email or web address] nausea No 06/30/24 09:34 MICROBIOLOGY QUALITY CONTROL TECHNICIAN.[email or web address] Vomiting No 06/30/24 09:34 MICROBIOLOGY QUALITY CONTROL TECHNICIAN.[email or web address] Anesthesia Postop Eval I: Fluid Summary Crystalloid volume administer 250 06/30/24 09:34 MICROBIOLOGY QUALITY CONTROL TECHNICIAN.[email or web address] (ml) Colloids volume administered ( ml) Blood Product volume administered (ml) Total IV fluid infused 250 06/30/24 09:34 MICROBIOLOGY QUALITY CONTROL TECHNICIAN.[email or web address] Anesthesia Postop Eval I: Summary Notes Anesthesia Complication Yes 06/30/24 09:34 MICROBIOLOGY QUALITY CONTROL TECHNICIAN.[email or web address] Anesthesia Complication right nares with 06/30/24 09:34 MICROBIOLOGY QUALITY CONTROL TECHNICIAN.[email or web address] Comment: epistaxis from npa Post-operative progress note Anesthesia: Postop Eval II Evaluation Mental status: Awake Pain Level: 2 nausea: No Vomiting: No 06/30/24 1016 a> Date _ Tawny Santos Signature: Date CC: ~ Signed [facility]03-24-2025 Consult note [facility] Medical Records Department [address] [place] [address] Anesthesia Postop Eval I 06/30/24 0933 MR#: [id number] Acct: [id number] Name: JACOB LANDA Rep #:[id number] : 1955 69 From: Antwan Pettit CRNA PCP: Dr. Yaw Singh MD Status:REG [facility] Y Race: C Location: [address] Anesthesia: Postop Eval I Current Vital Signs Temperature: 97.2 F Pulse Rate: 85 Blood Pressure: 102/75 Respiratory Rate: 20 Pulse Ox: 96 Oxygen Delivery Method: Room Air Assessment Airway patent: Yes Spontaneous unlabored respirations: Yes Mental status: Awake and Calm nausea: No Vomiting: No Anesthesia Complication: Yes Anesthesia Complication Comment:: right nares with epistaxis from npa Fluid Hydration Crystalloid volume administer (ml): 250 Total IV fluid infused: 250 Progress Note Anesthesia document: Postop Eval 1 completed: Yes 06/30/24 0935 y MICROBIOLOGY QUALITY CONTROL TECHNICIAN> Date _ Antwan Pettit MICROBIOLOGY QUALITY CONTROL TECHNICIAN Cosigner Signature: Date CC: ~ Signed [facility]03-24-2025 Consult note Author Guillermo [facility] Note Date/Time June 30, 2024 7:3 4am [facility] Medical Records Department [address] [place] [address] Pre-Anesthesia Evaluation 06/30/24 0723 MR#: [id number] Acct: [id number] Name: JACOB LANDA Rep #:[id number] : 1955 69 From: Guillermo Eckert MD PCP: Dr. Yaw Singh MD Status:[facility] Y Race: C Location: [place] [address] ASA Classification* ASA Classification ASA Classification: 3 Assessment & Plan Anesthesia* Anesthesia Assessment Anesthesia Assessment: Discussed sedation and/or anesthesia options, risks, benefits, and alternatives with patient/parents/legal guardian/POA. Questions invited. The patient/parents/legal guardian/POA seems to understand and agrees to proceedwith anesthesia plan. Reviewed the physical assessment, medical history, allergy history and patient home medications list prior to surgery/procedure/anesthetic and documented any changes. Performed airway and anesthesia risk assessments. Anesthesia Type Anesthesia Type: MAC History Source History Obtained from:: Patient and Chart Anesthesia Focused Assessment* Temperature: 97.7 F Pulse Rate: 80 Blood Pressure: 140/91 Respiratory Rate: 16 Pulse Ox: 100 Oxygen Delivery Method: Room Air Airway Assessment Mouth opens: >3 cm Mallampati Score: III Teeth Condition: Missing (Patient is missing several molars. Rest are tight.) Neck Range of motion (ROM): Limited ROM (Slight decrease in extension) Focused Labs Anesthesia Preop lab: CBC WBC 5.6 K/mm3 (4.4-11.0) 06/06/24 08:04 06/06/24 RBC 3.69 M/mm3 (4.6-6.2) L 06/06/24 08:04 06/06/24 Hgb 11.1 g/dL (13.0-16.5) L 06/06/24 08:04 5 Hct 35.0 % (40-54) L 06/06/24 08:04 06/06/24 Plt Count 198 K/mm3 (150-450) 06/06/24 08:04 06/06/24 CHEMISTRY Potassium 4.0 mmol/L (3.3-5.1) 06/06/24 08:04 06/06/24 Sodium 138 mmol/L (133-145) 06/06/24 08:04 06/06/24 Magnesium 2.2 mg/dL (1.6-2.6) 02/15/24 06:30 02/15/24 Phosphorus 4.9 mg/dL (2.5-4.9) 02/15/24 06:30 02/15/24 BUN 32 mg/dL (4-19) H 06/06/24 08:04 06/06/24 Creatinine 2.96 mg/dL (0.70-1.20) H 06/06/24 08:04 Glucose 93 mg/dL (70-99) 06/06/24 08:04 06/06/24 TSH 2.630 uIU/mL (0.358-3.740) 02/15/24 06:30 11/30 COAG PT 18.0 SECONDS (11.7-14.9) H 02/15/24 06:30 11/30 Pre-Assessment Diagnosis/Proposed Procedure Planned Operative Procedure(s): (L) Left Arteriovenous Fistula,Creation Anesthesia History 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 When Was Last Pacemaker Check QUESTION #4 FULL TEXT: You/Your Family Experience fever (hyperthermia) with Anesthesia Last Oral Intake Last Oral intake: Last Oral Intake NPO since 22:00 06/30/24 07:02 Meds taken in AM with sips of Yes 06/30/24 07:02 water? Meds patient instructed to take am of surgery PONV PONV - brake lining finisher: PONV - brake lining finisher Female No 06/02/24 10:59 HX of Motion Sickness No 06/02/24 10:59 HX of N/V After Surgery No 06/02/24 10:59 Non-Smoker Yes 06/02/24 10:59 Duration of Surgery greater No 06/02/24 10:59 than 60 minutes Number of Risk Factors 1 06/02/24 10:59 PONV Score Low Risk 06/02/24 10:59 Height & Weight Height & Weight: Anesthesia: Height & Weight Height 5 ft 9 in 06/30/24 07:02 Weight: 73.2 kg 06/30/24 07:02 Body Mass Index (BMI) 23.8 06/30/24 07:02 Respiratory Assessment Respiratory Assessment - brake lining finisher: Respiratory Tract Infection Hx - brake lining finisher Hx Respiratory Tract Infection No 06/02/24 10:59 STOP Sleep Apnea STOP Sleep Apnea - brake lining finisher: STOP Sleep Apnea - brake lining finisher Hx Hypertension Yes: CONTROLLED ON MEDS 06/02/24 10:59 Hx Sleep Apnea No 06/02/24 10:59 CPAP No 06/02/24 10:59 BIPAP No 06/02/24 10:59 Do you snore loudly (louder No 06/02/24 10:59 than talking or can be heard Do you often feel tired/ No 06/02/24 10:59 fatigued/ sleepy during daytime? Has anyone observed you stop No 06/02/24 10:59 breathing during sleep? STOP Results Negative 06/02/24 10:59 QUESTION #5 FULL TEXT : Do you snore loudly (louder than talking or can be heard through closed doors)? 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 Specify any problems Hx of Preganancy in last 3 N/A 06/02/24 10:59 Months Nurse Filling Out Transfusion VCHRISTIN 06/02/24 10:59 & Questions: Date: 06/02/24 06/02/24 10:59 Time: 11:01 06/02/24 10:59 Patient unable to answer at this time (ie. confused, unrespo /Reproduction History /Reproductive History - brake lining finisher: /Reproductive Hx- brake lining finisher Hx Now No 06/02/24 10:59 Gestational Age (in weeks): EDC: Hx Hx Para Hx Section SAB No 06/02/24 10:59 Active Medications Active Medications: Current Medications Generic Name Dose Route Start Last Admin Trade Name Freq PRN Reason Stop Dose Admin Cefazolin Sodium 2 gm/ N/A 20 mls @ 400 mls/hr 06/30/24 07:30 IV 06/30/24 07:32 PREOP ONE PFSH Medical History Wears glasses Cancer Cancer Pressure ulcer History of renal dialysis History of renal disease Injury of back History of GI bleed Gastric reflux Shortness of breath on exertion History of stress test History of echocardiogram Cardiology follow-up encounter Thrombus of venous dialysis catheter ESRD (end stage renal disease) on dialysis Acute respiratory insufficiency Medical non-compliance Acute exacerbation of chronic heart failure Chronic kidney disease (CKD) Pleural effusion Dyspnea Acute kidney injury Adenocarcinoma of esophagus LEELA (acute kidney injury) Non-smoker Esophageal carcinoma Atherosclerosis of coronary artery of [place] heart without angina pectoris 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 Essential (primary) hypertension Non-rheumatic aortic stenosis Syncope and collapse Hyperlipidemia Atherosclerotic heart disease of [place] coronary artery with other forms of angina pectoris Encounter for long-term current use of high risk medication abnormal stress test Angina pectoris Exertional chest pain Home Medications ?Medication ?Instructions ?Recorded ?Last Taken ?Type atorvastatin 80 mg tablet 80 mg PO QHS CHOLESTEROL #90 tabs 05/15/22 12/24/23 Rx ezetimibe 10 mg tablet 10 mg PO DAILY CHOLESTEROL # 90 tabs 05/15/22 12/24/23 Rx metoprolol tartrate 25 mg tablet 25 mg PO BID #0 tabs 10/25/23 06/30/24 05:30 Rx pantoprazole 40 mg tablet,delayed 40 mg PO BID #0 tabs 10/25/23 06/30/24 05:30 Rx release ferrous sulfate 325 mg (65 mg 325 mg PO DAILY #90 tabs 11/20/23 06/29/24 Rx iron) tablet polyethylene glycol 3350 17 17 g PO DAILY PRN constipa tion 12/04/23 Unknown History gram/dose oral powder (Miralax) ondansetron 4 mg disintegrating 4 mg PO Q8H PRN PRN na usea and 12/25/23 12/25/23 08:00 History tablet vomiting nitroglycerin 0.4 mg sublingual 0.4 mg sublingual PRN PRN angina 02/14/24 Unknown History tablet aspirin 81 mg chewable tablet 81 mg PO BID #0 tabs 01/3006/29/24 Rx acetaminophen 500 mg tablet 1,000 mg PO Q8 PRN pain Unknown History amoxicillin 500 mg tablet 2,000 mg (4 x 500 mg) PO ONC E #4 04/29/24 Unknown Rx tabs Allergy/AdvReac Type Severity Reaction Status Date / Time No Known Allergies Allergy Verified 06/30/24 07:01 Family History Father Heart disease Myocardial infarction Hypertension Brother Hypertension Sister Heart disease Myocardial infarction Surgical History History of hip replacement (~02/2024) History of cardiac catheterization History of esophagogastroduodenoscopy (EGD) Hx of surgical procedure History of aortic valve replacement (03/03/19) History of coronary artery stent placement (12/31/18) H/O coronary artery bypass surgery (09/18/02) History of tonsillectomy History of hernia repair Social History Smoking Status: Never smoker alcohol intake: never substance use type: does not use caffeine: No what type of physical activity do you participate in: walking frequency: daily Review of Systems (Anesthesia) ROS Narrative System reviewed and no additional complaints, except as documented. 06/30/24 0734 <Electronically signed by Guillermo malin MD> Date _ Guillermo Eckert MD Cosigner Signature: Date CC: ~ Signed [facility] Work Phone: 1(450) 128-328203-24-2025 History and physical note Author Nikita Jackson [facility] Note Date/Time June 30, 2024 7:1 7am [facility] Medical Records Department [address] [place] [address] History & Physical Exam 06/30/24 0714 MR#: [id number] Acct: [id number] Name: JACOB LANDA Rep #:[id number] : 1955 69 From: Nikita Jackson MD PCP: Dr. Yaw Singh MD Status:[facility] Location: [place] [address] HPI - General HPI Narrative JACOB LANDA, is a 69 M who presents with ESRD currently on dialysis after LEELA last year with no recovery of renal function. He had vein mapping that revealed adequate left upper arm cephalic, basilic veins. [facility] Medical History Wears glasses Cancer Cancer Pressure ulcer History of renal dialysis History of renal disease Injury of back History of GI bleed Gastric reflux Shortness of breath on exertion History of stress test History of echocardiogram Cardiology follow-up encounter Thrombus of venous dialysis catheter ESRD (end stage renal disease) on dialysis Acute respiratory insufficiency Medical non-compliance Acute exacerbation of chronic heart failure Chronic kidney disease (CKD) Pleural effusion Dyspnea Acute kidney injury Adenocarcinoma of esophagus LEELA (acute kidney injury) Non-smoker Esophageal carcinoma Atherosclerosis of coronary artery of [place] heart without angina pectoris 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 Essential (primary) hypertension Non-rheumatic aortic stenosis Syncope and collapse Hyperlipidemia Atherosclerotic heart disease of [place] coronary artery with other forms of angina pectoris Encounter for long-term current use of high risk medication abnormal stress test Angina pectoris Exertional chest pain Home Medications ?Medication ?Instructions ?Recorded ?Last Taken ?Type atorvastatin 80 mg tablet 80 mg PO QHS CHOLESTEROL #90 tabs 05/15/22 12/24/23 Rx ezetimibe 10 mg tablet 10 mg PO DAILY CHOLESTEROL # 90 tabs 05/15/22 12/24/23 Rx metoprolol tartrate 25 mg tablet 25 mg PO BID #0 tabs 10/25/23 06/30/24 05:30 Rx pantoprazole 40 mg tablet,delayed 40 mg PO BID #0 tabs 10/25/23 06/30/24 05:30 Rx release ferrous sulfate 325 mg (65 mg 325 mg PO DAILY #90 tabs 11/20/23 06/29/24 Rx iron) tablet polyethylene glycol 3350 17 17 g PO DAILY PRN constipa tion 12/04/23 Unknown History gram/dose oral powder (Miralax) ondansetron 4 mg disintegrating 4 mg PO Q8H PRN PRN na usea and 12/25/23 12/25/23 08:00 History tablet vomiting nitroglycerin 0.4 mg sublingual 0.4 mg sublingual PRN PRN angina 02/14/24 Unknown History tablet aspirin 81 mg chewable tablet 81 mg PO BID #0 tabs 01/3006/29/24 Rx acetaminophen 500 mg tablet 1,000 mg PO Q8 PRN pain Unknown History amoxicillin 500 mg tablet 2,000 mg (4 x 500 mg) PO ONC E #4 04/29/24 Unknown Rx tabs Allergy/AdvReac Type Severity Reaction Status Date / Time No Known Allergies Allergy Verified 06/30/24 07:01 Family History Father Heart disease Myocardial infarction Hypertension Brother Hypertension Sister Heart disease Myocardial infarction Surgical History History of hip replacement (~02/2024) History of cardiac catheterization History of esophagogastroduodenoscopy (EGD) Hx of surgical procedure History of aortic valve replacement (03/03/19) History of coronary artery stent placement (12/31/18) H/O coronary artery bypass surgery (09/18/02) History of tonsillectomy History of hernia repair Social History Smoking Status: Never smoker alcohol intake: never substance use type: does not use caffeine: No what type of physical activity do you participate in: walking frequency: daily ROS Constitutional Constitutional: Denies chills, fever(s), frequent falls, lethargy or weakness Eyes Eyes: Denies blind spots, change in vision or loss of vision ENT HEENT: Denies bleeding gums, hoarseness or sore throat Cardiovascular Cardiovascular: Denies abdominal pain, bluish discoloration of hand/feet, chest pain with activity, claudication, cold extremities, cyanosis, dyspnea on exertion, erythema on extremities, irregular heart rhythm, leg edema, leg ulcers, numbness in extremities or weakness in extremities Respiratory/Chest Respiratory/Chest: Denies cough, excessive phlegm production, shortness of breath at rest, shortness of breath with exertion or wheezing Gastrointestinal Gastrointestinal: Denies anorexia, change in stool character, constipation, diarrhea, melena or rectal bleeding Genitourinary Genitourinary: Denies dysuria or hematuria Musculoskeletal Musculoskeletal: Denies abnormal gait Integumentary Integumentary: Reports other Details: ; Denies erythema, non-healing lesions or wounds Neurologic Neurologic: Denies abnormal speech, focal weakness, headache(s), loss of vision,numbness, paresthesias or sensory deficit Hematologic/Lymphatic Hematologic/Lymphatic: Denies easy bleeding, easy bruising or lymphadenopathy Vital Signs Vital Signs Vital Signs: 06/30/24 07:02 06/30/24 07:02 Temperature 97.7 F L Temperature Source Temporal Pulse Rate 80 Respiratory Rate 16 Respiratory Pattern Normal Blood Pressure 140/91 H Blood Pressure Mean 107 Blood Pressure Source Monitor Blood Pressure Position Semi-Fowlers Blood Pressure Location Right Arm Pulse Ox 100 Oxygen Delivery Method Room Air Weight Weight: 161 lb 6.054 oz Body Mass Index (BMI) 23.8 Physical Exam Const alert, oriented x3, no apparent distress and healthy appearing General Appearance: cooperative; Negative for combative or lethargic Orientation / Consciousness: awake Exam Limitations: no limitations HEENT Head and Scalp: normocephalic and atraumatic Eyes EOMs intact bilaterally General Eye: normal appearance of both eyes Neck full ROM General: trachea midline Resp normal respiratory effort and no use of accessory muscles Effort and Inspection: Negative for labored, stridor or audible wheezes Cardio regular rate and regular rhythm Back/Spine Cervical Spine: cervical ROM normal Extremity full ROM, normal capillary refill and no clubbing, cyanosis or edema Skin no rashes or lesions noted Neuro oriented x3, CN's II-XII intact bilaterally, no focal motor deficits and no sensory deficits noted Psych thought process normal, cooperative, affect normal, speech normal and activity/motor behavior normal Assessment & Plan Assessment/Plan (1) ESRD (end stage renal disease) on dialysis: PLAN: -left upper arm fistula creation 06/30/24 07 <Electronically signed by Nikita Jackson MD> Cosigner Signature (if applicable): CC: Dr. Nikita Jackson MD; Dr. Yaw Singh MD~ Signed [facility] Work Phone: 1(597) 238-245003-24-2025 Discharge summary [facility] Medical Records Department [address] [place] [address] Instructions for Home/Discharge Instructions 06/30/24 0913 MR#: [id number] Acct: [id number] Name: JACOB LANDA Rep #:[id number] : 1955 69 From: Nikita Jackson MD PCP: Dr. Yaw Singh MD Status:REG [facility] Discharge Instructions Diet Discharge Diet: No restrictions Activity Lifting Restrictions: do not lift > 20 lbs with left arm for 14 days Additional Activity Instructions:: do not submerge incision for 14 days Dressing / Incision Call your doctor if your incision/area has: Sudden Increased Bleeding, IncreasedPain/ Swelling, Increased Redness and Foul Smelling Discharge Call your doctor if you observe: Fever of 101 or Higher, Coldness, Increased Pain and Numbness or Tingling Remove Dressing in: 2 days Follow Up Care Test Results: Test results from this visit will be discussed in further detail at your follow- up appointment, if applicable. Discharge Plan Admission Attending Provider: Nikita Jackson Primary Care Provider: Yaw Singh Instructions Print Language: Congolese Discharge Orders/Prescriptions Prescriptions: New oxycodone 5 mg tablet 5 mg PO Q8H PRN (Reason: pain) 2 Days Qty: 6 0RF Continued atorvastatin 80 mg tablet 80 mg PO QHS Qty: 90 3RF ezetimibe 10 mg tablet 10 mg PO DAILY Qty: 90 3RF ferrous sulfate 325 mg (65 mg iron) tablet 325 mg PO DAILY Qty: 90 3RF acetaminophen 500 mg tablet 1,000 mg PO Q8 PRN (Reason: pain) Rx Instructions: Take Tylenol this way for 5 to 7 days postoperatively and then okay to go back and use as needed amoxicillin 500 mg tablet 2,000 mg PO ONCE Qty: 4 0RF Rx Instructions: Take one hour prior to dental cleanings/procedure metoprolol tartrate 25 mg Tablet 25 mg PO BID Qty: 0 0RF pantoprazole 40 mg Tablet,Delayed Release (Dr/Ec) 40 mg PO BID Qty: 0 0RF polyethylene glycol 3350 [Miralax] 17 gram/dose powder 17 g PO DAILY PRN (Reason: constipation) ondansetron 4 mg tablet,disintegrating 4 mg PO Q8H PRN PRN (Reason: nausea and vomiting) nitroglycerin 0.4 mg tablet, sublingual 0.4 mg sublingual PRN PRN (Reason: angina) aspirin 81 mg Tablet,Chewable 81 mg PO BID Qty: 0 0RF Rx Instructions: Take for 30 days postop and then okay to discontinue Referrals / Follow Up: Yaw Singh MD [Primary Care Provider] - Disposition Disposition (needs filled in before D/C Order can be placed): Home, Self Care 06/30/24 Sheree Jackson MD CC: Dr. Yaw Singh MD ~ Signed [facility]03-24-2025 Evaluation note* Diagnosis Onset Date Resolution Status Admit Date ESRD (end stage renal diseas e) on dialysis chronic June 30, 2024 6:45am AV fistula acute July 22 2:11pm [facility] Work Phone: 1(908) 716-357903-24-2025 Evaluation note* Diagnosis Onset Date Resolution Status Admit Date ESRD (end stage renal diseas e) on dialysis chronic June 30, 2024 6:45am AV fistula acute July 22 2:11pm AV fistula acute September 02, 2024 1:47pm [facility] [facility] Work Phone: 1(400) 889-437203-24-2025 Evaluation note* Diagnosis Onset Date Resolution Status Admit Date ESRD (end stage renal diseas e) on dialysis chronic June 30, 2024 6:45am AV fistula acute July 22 2:11pm AV fistula acute September 02, 2024 1:47pm Tunneled central venous catheter present acute October 15, 2024 9:01am [facility] Work Phone: 1(283) 927-112103-24-2025 Consult note [facility] Medical Records Department [address] [place] [address] Pre-Anesthesia Evaluation 06/30/24722 MR#: [id number] Acct: [id number] Name: JACOB LANDA Rep #:[id number] : 1955 69 From: Guillermo Eckert MD PCP: Dr. Yaw Singh MD Status:REG SDC Y Race: C Location: [place] [address]- ASA Classification* ASA Classification ASA Classification: 3 Assessment & Plan Anesthesia* Anesthesia Assessment Anesthesia Assessment: Discussed sedation and/or anesthesia options, risks, benefits, and alternatives with patient/parents/legal guardian/POA. Questions invited. The patient/parents/legal guardian/POA seems to understand and agrees to proceedwith anesthesia plan. Reviewed the physical assessment, medical history, allergy history and patient home medications list prior to surgery/procedure/anesthetic and documented any changes. Performed airway and anesthesia risk assessments. Anesthesia Type Anesthesia Type: MAC History Source History Obtained from:: Patient and Chart Anesthesia Focused Assessment* Temperature: 97.7 F Pulse Rate: 80 Blood Pressure: 140/91 Respiratory Rate: 16 Pulse Ox: 100 Oxygen Delivery Method: Room Air Airway Assessment Mouth opens: >3 cm Mallampati Score: III Teeth Condition: Missing (Patient is missing several molars. Rest are tight.) Neck Range of motion (ROM): Limited ROM (Slight decrease in extension) Focused Labs Anesthesia Preop lab: CBC WBC 5.6 K/mm3 (4.4-11.0) 06/06/24 08:04 06/06/24 RBC 3.69 M/mm3 (4.6-6.2) L 06/06/24 08:04 06/06/24 Hgb 11.1 g/dL (13.0-16.5) L 06/06/24 08:04 5 Hct 35.0 % (40-54) L 06/06/24 08:04 06/06/24 Plt Count 198 K/mm3 (150-450) 06/06/24 08:04 06/06/24 CHEMISTRY Potassium 4.0 mmol/L (3.3-5.1) 06/06/24 08:04 06/06/24 Sodium 138 mmol/L (133-145) 06/06/24 08:04 06/06/24 Magnesium 2.2 mg/dL (1.6-2.6) 02/15/24 06:30 02/15/24 Phosphorus 4.9 mg/dL (2.5-4.9) 02/15/24 06:30 02/15/24 BUN 32 mg/dL (4-19) H 06/06/24 08:04 06/06/24 Creatinine 2.96 mg/dL (0.70-1.20) H 06/06/24 08:04 Glucose 93 mg/dL (70-99) 06/06/24 08:04 06/06/24 TSH 2.630 uIU/mL (0.358-3.740) 02/15/24 06:30 11/30 COAG PT 18.0 SECONDS (11.7-14.9) H 02/15/24 06:30 11/30 Pre-Assessment Diagnosis/Proposed Procedure Planned Operative Procedure(s): (L) Left Arteriovenous Fistula,Creation Anesthesia History 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 When Was Last Pacemaker Check QUESTION #4 FULL TEXT: You/Your Family Experience fever (hyperthermia) with Anesthesia Last Oral Intake Last Oral intake: Last Oral Intake NPO since 22:00 06/30/24 07:02 Meds taken in AM with sips of Yes 06/30/24 07:02 water? Meds patient instructed to take am of surgery PONV PONV - brake lining finisher: PONV - brake lining finisher Female No 06/02/24 10:59 HX of Motion Sickness No 06/02/24 10:59 HX of N/V After Surgery No 06/02/24 10:59 Non-Smoker Yes 06/02/24 10:59 Duration of Surgery greater No 06/02/24 10:59 than 60 minutes Number of Risk Factors 1 06/02/24 10:59 PONV Score Low Risk 06/02/24 10:59 Height & Weight Height & Weight: Anesthesia: Height & Weight Height 5 ft 9 in 06/30/24 07:02 Weight: 73.2 kg 06/30/24 07:02 Body Mass Index (BMI) 23.8 06/30/24 07:02 Respiratory Assessment Respiratory Assessment - brake lining finisher: Respiratory Tract Infection Hx - brake lining finisher Hx Respiratory Tract Infection No 06/02/24 10:59 STOP Sleep Apnea STOP Sleep Apnea - brake lining finisher: STOP Sleep Apnea - brake lining finisher Hx Hypertension Yes: CONTROLLED ON MEDS 06/02/24 10:59 Hx Sleep Apnea No 06/02/24 10:59 CPAP No 06/02/24 10:59 BIPAP No 06/02/24 10:59 Do you snore loudly (louder No 06/02/24 10:59 than talking or can be heard Do you often feel tired/ No 06/02/24 10:59 fatigued/ sleepy during daytime? Has anyone observed you stop No 06/02/24 10:59 breathing during sleep? STOP Results Negative 06/02/24 10:59 QUESTION #5 FULL TEXT : Do you snore loudly (louder than talking or can be heard through closeddoors)? 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 Specify any problems Hx of Preganancy in last 3 N/A 06/02/24 10:59 Months Nurse Filling Out Transfusion VCHRISTIN 06/02/24 10:59 & Questions: Date: 06/02/24 06/02/24 10:59 Time: 11:01 06/02/24 10:59 Patient unable to answer at this time (ie. confused, unrespo /Reproduction History /Reproductive History - brake lining finisher: /Reproductive Hx- brake lining finisher Hx Now No 06/02/24 10:59 Gestational Age (in weeks): EDC: Hx Hx Para Hx Section SAB No 06/02/24 10:59 Active Medications Active Medications: Current Medications Generic Name Dose Route Start Last Admin Trade Name Freq PRN Reason Stop Dose Admin Cefazolin Sodium 2 gm/ N/A 20 mls @ 400 mls/hr 06/30/24 07:30 IV 06/30/24 07:32 PREOP ONE PFSH Medical History Wears glasses Cancer Cancer Pressure ulcer History of renal dialysis History of renal disease Injury of back History of GI bleed Gastric reflux Shortness of breath on exertion History of stress test History of echocardiogram Cardiology follow-up encounter Thrombus of venous dialysis catheter ESRD (end stage renal disease) on dialysis Acute respiratory insufficiency Medical non-compliance Acute exacerbation of chronic heart failure Chronic kidney disease (CKD) Pleural effusion Dyspnea Acute kidney injury Adenocarcinoma of esophagus LEELA (acute kidney injury) Non-smoker Esophageal carcinoma Atherosclerosis of coronary artery of [place] heart without angina pectoris 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 Essential (primary) hypertension Non-rheumatic aortic stenosis Syncope and collapse Hyperlipidemia Atherosclerotic heart disease of [place] coronary artery with other forms of angina pectoris Encounter for long-term current use of high risk medication abnormal stress test Angina pectoris Exertional chest pain Home Medications ?Medication ?Instructions ?Recorded ?Last Taken ?Type atorvastatin 80 mg tablet 80 mg PO QHS CHOLESTEROL #90 tabs 05/15/22 12/24/23 Rx ezetimibe 10 mg tablet 10 mg PO DAILY CHOLESTEROL # 90 tabs 05/15/22 12/24/23 Rx metoprolol tartrate 25 mg tablet 25 mg PO BID #0 tabs 10/25/23 06/30/24 05:30 Rx pantoprazole 40 mg tablet,delayed 40 mg PO BID #0 tabs 10/25/23 06/30/24 05:30 Rx release ferrous sulfate 325 mg (65 mg 325 mg PO DAILY #90 tabs 11/20/23 06/29/24 Rx iron) tablet polyethylene glycol 3350 17 17 g PO DAILY PRN constipa tion 12/04/23 Unknown History gram/dose oral powder (Miralax) ondansetron 4 mg disintegrating 4 mg PO Q8H PRN PRN na usea and 12/25/23 12/25/23 08:00 History tablet vomiting nitroglycerin 0.4 mg sublingual 0.4 mg sublingual PRN PRN angina 02/14/24 Unknown History tablet aspirin 81 mg chewable tablet 81 mg PO BID #0 tabs 01/3006/29/24 Rx acetaminophen 500 mg tablet 1,000 mg PO Q8 PRN pain Unknown History amoxicillin 500 mg tablet 2,000 mg (4 x 500 mg) PO ONC E #4 04/29/24 Unknown Rx tabs Allergy/AdvReac Type Severity Reaction Status Date / Time No Known Allergies Allergy Verified 06/30/24 07:01 Family History Father Heart disease Myocardial infarction Hypertension Brother Hypertension Sister Heart disease Myocardial infarction Surgical History History of hip replacement (~02/2024) History of cardiac catheterization History of esophagogastroduodenoscopy (EGD) Hx of surgical procedure History of aortic valve replacement (03/03/19) History of coronary artery stent placement (12/31/18) H/O coronary artery bypass surgery (09/18/02) History of tonsillectomy History of hernia repair Social History Smoking Status: Never smoker alcohol intake: never substance use type: does not use caffeine: No what type of physical activity do you participate in: walking frequency: daily Review of Systems (Anesthesia) ROS Narrative System reviewed and no additional complaints, except as documented. 06/30/24 0734 kimo MANNING> Date _ Guillermo Eckert MD Cosigner Signature: Date CC: ~ Signed [facility]03-24-2025 History and physical note [facility] Medical Records Department [address] [place] [address] History & Physical Exam 06/30/24713 MR#: [id number] Acct: [id number] Name: JACOB LANDA Rep #:[id number] : 1955 69 From: Nikita Jackson MD PCP: Dr. Yaw Singh MD Status:[facility] Location: [place] [address] HPI - General HPI Narrative JACOB LANDA, is a 69 M who presents with ESRD currently on dialysis after LEELA last year with no recovery of renal function. He had vein mapping that revealed adequate left upper arm cephalic, basilicveins. [facility] Medical History Wears glasses Cancer Cancer Pressure ulcer History of renal dialysis History of renal disease Injury of back History of GI bleed Gastric reflux Shortness of breath on exertion History of stress test History of echocardiogram Cardiology follow-up encounter Thrombus of venous dialysis catheter ESRD (end stage renal disease) on dialysis Acute respiratory insufficiency Medical non-compliance Acute exacerbation of chronic heart failure Chronic kidney disease (CKD) Pleural effusion Dyspnea Acute kidney injury Adenocarcinoma of esophagus LEELA (acute kidney injury) Non-smoker Esophageal carcinoma Atherosclerosis of coronary artery of [place] heart without angina pectoris 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 Essential (primary) hypertension Non-rheumatic aortic stenosis Syncope and collapse Hyperlipidemia Atherosclerotic heart disease of [place] coronary artery with other forms of angina pectoris Encounter for long-term current use of high risk medication abnormal stress test Angina pectoris Exertional chest pain Home Medications ?Medication ?Instructions ?Recorded ?Last Taken ?Type atorvastatin 80 mg tablet 80 mg PO QHS CHOLESTEROL #90 tabs 05/15/22 12/24/23 Rx ezetimibe 10 mg tablet 10 mg PO DAILY CHOLESTEROL # 90 tabs 05/15/22 12/24/23 Rx metoprolol tartrate 25 mg tablet 25 mg PO BID #0 tabs 10/25/23 06/30/24 05:30 Rx pantoprazole 40 mg tablet,delayed 40 mg PO BID #0 tabs 10/25/23 06/30/24 05:30 Rx release ferrous sulfate 325 mg (65 mg 325 mg PO DAILY #90 tabs 11/20/23 06/29/24 Rx iron) tablet polyethylene glycol 3350 17 17 g PO DAILY PRN constipa tion 12/04/23 Unknown History gram/dose oral powder (Miralax) ondansetron 4 mg disintegrating 4 mg PO Q8H PRN PRN na usea and 12/25/23 12/25/23 08:00 History tablet vomiting nitroglycerin 0.4 mg sublingual 0.4 mg sublingual PRN PRN angina 02/14/24 Unknown History tablet aspirin 81 mg chewable tablet 81 mg PO BID #0 tabs 01/3006/29/24 Rx acetaminophen 500 mg tablet 1,000 mg PO Q8 PRN pain Unknown History amoxicillin 500 mg tablet 2,000 mg (4 x 500 mg) PO ONC E #4 04/29/24 Unknown Rx tabs Allergy/AdvReac Type Severity Reaction Status Date / Time No Known Allergies Allergy Verified 06/30/24 07:01 Family History Father Heart disease Myocardial infarction Hypertension Brother Hypertension Sister Heart disease Myocardial infarction Surgical History History of hip replacement (~02/2024) History of cardiac catheterization History of esophagogastroduodenoscopy (EGD) Hx of surgical procedure History of aortic valve replacement (03/03/19) History of coronary artery stent placement (12/31/18) H/O coronary artery bypass surgery (09/18/02) History of tonsillectomy History of hernia repair Social History Smoking Status: Never smoker alcohol intake: never substance use type: does not use caffeine: No what type of physical activity do you participate in: walking frequency: daily ROS Constitutional Constitutional: Denies chills, fever(s), frequent falls, lethargy or weakness Eyes Eyes: Denies blind spots, change in vision or loss of vision ENT HEENT: Denies bleeding gums, hoarseness or sore throat Cardiovascular Cardiovascular: Denies abdominal pain, bluish discoloration of hand/feet, chest pain with activity,claudication, cold extremities, cyanosis, dyspnea on exertion, erythema on extremities, irregular heart rhythm, leg edema, leg ulcers, numbness in extremities or weakness in extremities Respiratory/Chest Respiratory/Chest: Denies cough, excessive phlegm production, shortness of breath at rest, shortness of breath with exertion or wheezing Gastrointestinal Gastrointestinal: Denies anorexia, change in stool character, constipation, diarrhea, melena or rectal bleeding Genitourinary Genitourinary: Denies dysuria or hematuria Musculoskeletal Musculoskeletal: Denies abnormal gait Integumentary Integumentary: Reports other Details: ; Denies erythema, non-healing lesions or wounds Neurologic Neurologic: Denies abnormal speech, focal weakness, headache(s), loss of vision,numbness, paresthesias or sensory deficit Hematologic/Lymphatic Hematologic/Lymphatic: Denies easy bleeding, easy bruising or lymphadenopathy Vital Signs Vital Signs Vital Signs: 06/30/24 07:02 06/30/24 07:02 Temperature 97.7 F L Temperature Source Temporal Pulse Rate 80 Respiratory Rate 16 Respiratory Pattern Normal Blood Pressure 140/91 H Blood Pressure Mean 107 Blood Pressure Source Monitor Blood Pressure Position Semi-Fowlers Blood Pressure Location Right Arm Pulse Ox 100 Oxygen Delivery Method Room Air Weight Weight: 161 lb 6.054 oz Body Mass Index (BMI) 23.8 Physical Exam Const alert, oriented x3, no apparent distress and healthy appearing General Appearance: cooperative; Negative for combative or lethargic Orientation / Consciousness: awake Exam Limitations: no limitations HEENT Head and Scalp: normocephalic and atraumatic Eyes EOMs intact bilaterally General Eye: normal appearance of both eyes Neck full ROM General: trachea midline Resp normal respiratory effort and no use of accessory muscles Effort and Inspection: Negative for labored, stridor or audible wheezes Cardio regular rate and regular rhythm Back/Spine Cervical Spine: cervical ROM normal Extremity full ROM, normal capillary refill and no clubbing, cyanosis or edema Skin no rashes or lesions noted Neuro oriented x3, CN's II-XII intact bilaterally, no focal motor deficits and no sensory deficits noted Psych thought process normal, cooperative, affect normal, speech normal and activity/motor behavior normal Assessment & Plan Assessment/Plan (1) ESRD (end stage renal disease) on dialysis: PLAN: -left upper arm fistula creation 06/30/24716 Cosigner Signature (if applicable): CC: Dr. Nikita Jackson MD; Dr. Yaw Singh MD~ Signed [facility]03-24-2025 [facility] Medical Records Department [address] [place] [address] History Physical Exam 06/30/24713 MR#: [id number] Acct: [id number] Name: JACOB LANDA Rep #: [id number] : 1955 69 From: Nikita Jackson MD PCP: Dr. Yaw Singh MD Status:[facility] Location: [place] [address] HPI - General HPI Narrative JACOB LANDA, is a 69 M who presents with ESRD currently on dialysis after LEELA last year with no recovery of renal function. He had vein mapping that revealed adequate left upper arm cephalic, basilic veins. [facility] Medical History Wears glasses Cancer Cancer Pressure ulcer History of renal dialysis History of renal disease Injury of back History of GI bleed Gastric reflux Shortness of breath on exertion History of stress test History of echocardiogram Cardiology follow-up encounter Thrombus of venous dialysis catheter ESRD (end stage renal disease) on dialysis Acute respiratory insufficiency Medical non-compliance Acute exacerbation of chronic heart failure Chronic kidney disease (CKD) Pleural effusion Dyspnea Acute kidney injury Adenocarcinoma of esophagus LEELA (acute kidney injury) Non-smoker Esophageal carcinoma Atherosclerosis of coronary artery of [place] heart without angina pectoris 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 Essential (primary) hypertension Non-rheumatic aortic stenosis Syncope and collapse Hyperlipidemia Atherosclerotic heart disease of [place] coronary artery with other forms of angina pectoris Encounter for long-term current use of high risk medication abnormal stress test Angina pectoris Exertional chest pain Home Medications ???Medication ???Instructions ???Recorded ???Last Taken ???Type atorvastatin 80 mg tablet 80 mg PO QHS CHOLESTEROL #90 tabs 05/15/22 12/24/23 Rx ezetimibe 10 mg tablet 10 mg PO DAILY CHOLESTEROL #90 tab s 05/15/22 12/24/23 Rx metoprolol tartrate 25 mg tablet 25 mg PO BID #0 tabs 10/25/2306/08 05:30 Rx pantoprazole 40 mg tablet,delayed 40 mg PO BID #0 tabs 10/25/23 05:30 Rx release ferrous sulfate 325 mg (65 mg 325 mg PO DAILY #90 tabs 11/20/23 06/29/24 Rx iron) tablet polyethylene glycol 3350 17 17 g PO DAILY PRN constipation Unknown History gram/dose oral powder (Miralax) ondansetron 4 mg disintegrating 4 mg PO Q8H PRN PRN nausea and 12/25/23 08:00 History tablet vomiting nitroglycerin 0.4 mg sublingual 0.4 mg sublingual PRN PRN angina 1 04/15/23 Unknown History tablet aspirin 81 mg chewable tablet 81 mg PO BID #0 tabs 02/17/24 03/2 07/01 Rx acetaminophen 500 mg tablet 1,000 mg PO Q8 PRN pain 04/29/24 U nknown History amoxicillin 500 mg tablet 2,000 mg (4 x 500 mg) PO ONCE #4 0 04/29/24 Unknown Rx tabs Allergy/AdvReac Type Severity Reaction Status Date / Time No Known Allergies Allergy Verified 06/30/24 07:01 Family History Father Heart disease Myocardial infarction Hypertension Brother Hypertension Sister Heart disease Myocardial infarction Surgical History History of hip replacement ( 02/2024) History of cardiac catheterization History of esophagogastroduodenoscopy (EGD) Hx of surgical procedure History of aortic valve replacement (03/03/19) History of coronary artery stent placement (12/31/18) H/O coronary artery bypass surgery (09/18/02) History of tonsillectomy History of hernia repair Social History Smoking Status: Never smoker alcohol intake: never substance use type: does not use caffeine: No what type of physical activity do you participate in: walking frequency: daily ROS Constitutional Constitutional: Denies chills, fever(s), frequent falls, lethargy or weakness Eyes Eyes: Denies blind spots, change in vision or loss of vision ENT HEENT: Denies bleeding gums, hoarseness or sore throat Cardiovascular Cardiovascular: Denies abdominal pain, bluish discoloration of hand/feet, chest pain with activity, claudication, cold extremities, cyanosis, dyspnea on exertion, erythema on extremities, irregular heart rhythm, leg edema, leg ulcers, numbness in extremities or weakness in extremities Respiratory/Chest Respiratory/Chest: Denies cough, excessive phlegm production, shortness of breath at rest, shortness of breath with exertion or wheezing Gastrointestinal Gastrointestinal: Denies anorexia, change in stool character, constipation, diarrhea, melena or rectal bleeding Genitourinary Genitourinary: Denies dysuria or hematuria M (more content not included)...[facility]03-14-2025 Telephone encounter Note* Telephone Encounter - Hill Obrien LISW - 06/20/2024 10:44 AM EDT Call placed to pt to complete the scheduled kidney transplant psychosocial evaluation. No answer. Left message requesting pt return my call. KATHERYN Dye LISW-S, [facility] Transplant Sueding Machine Tender [facility] Work Phone: [phone]) [phone] Miscellaneous Notes* Telephone Encounter - Hill Obrien LISW - 06/20/2024 10:44 AM EDT Call placed to pt to complete the scheduled kidney transplant psychosocial evaluation. No answer. Left message requesting pt return my call. KATHERYN Dye LISW-S, [facility] Transplant Sueding Machine Tender [facility] Instructions* Patient Instructions* Ezekiel Shah RN - 06/11/2024 3:19 PM EST As part of your transplant evaluation you are required to complete the following additional items. Please be aware that your evaluation will not be considered complete until all testing has been submitted. YOU WILL NOT BE LISTED ON THE TRANSPLANT LIST until these results have been received by our office, reviewed by the transplant committee and approved for transplant. You will be contacted with the decision of the transplant committee at a future date. The following will be scheduled for you at a [facility] facility: CARDIAC: EKG-Today Cardiac Stress Test-Will schedule after discussion with your fiber optic assembly worker CANCER SCREENING: PSA with Evaluation-with labs today ADDITIONAL CONSULTS Cardiology-Will need clearance from your fiber optic assembly worker Oncology-Will need clearance from your oncologist Imaging Studies: Nothing further Miscellaneous Items: Labs-Today Outside test results should be faxed to [phone]. Please review the kidney transplant educational materials on line at [email or web address] Sign-in: Kidney To check on your status of your evaluation, please contact your coordinator, Wendy Christian RN [phone]. Ezekiel Shah RN Kidney/Pancreas Pre-Hang Gliding Instructor [facility] documented in [facility] encounter[facility]03-[facility]-2025 NoteHNO ID: [id number] Author: LACHO PA PA-C Service: ? Author Type: Physician Pharmacy Technology Instructor Type: Progress Notes Filed: 06/13/2024 16:50 Note Text: [facility] Transplant Evaluation CC: Consultation for Kidney transplant evaluation. Referred by: Maria [facility] [address] [facility] [address] [address] I will communicate with the referring provider by letter and/or shared electronic medical record. HPI: This is a 69 year old gentleman who presents for kidney transplant evaluation related to ESRD secondary to a history of HTN. Patient has an additional PMHX of CAD s/p CABG x 4 vessels 2003 Non-stemi with 2 stents at [facility] in 2018 HLD aortic valve stenosis s/p TAVR with bioprosthetic valve 02/2019 Asthma GERD esophageal CA-Dr. 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 concurrent chemotherapy and radiation with carboplatin and paclitaxel 05/2020-06/2020 Adrián Roger esophagectomy 08/09/2020 Adjuvant nivolumab DDD BPH kidney stones left hip replacement 02/15/2024. Hematology note mentions kidney biopsy in October of 2023 with acute tubular necrosis and acute tubulointerstitial nephritis-results not in CE. Pt initiated on hemodialysis 03/28/2024 through a [facility]-plan for aVF on Sunday06/16/2024-Perkins Patient presents ambulatory with cane. Does patient work?: No Smoking Status: Never smoker UTI: No Kidney stones: Yes-Passed on own Chronic anti-coagulation: No Midodrine: No Abdominal surgeries: Yes Hernia repair x 2 (inguinal and abdominal wall Cardiovascular Disease?: Yes Peripheral Arterial Disease (TIA non-embolic, CVA non-embolic, amputation, abnormal PVRs, decreased pulses, etc): No Stroke: No Claudication: No Carotid Artery Stenosis: No DM: No Diabetic ulcers or chronic wounds: No Prior transplant: No CKD: Yes: Cause of CKD: HTN Hemodialysis, Start date: 03/28/2024 Living Donors: Yes Residual UO: 500 ml-1000 ml daily Hypercoagulable (hx of DVT/PE, miscarriages, prior use of anticoagulation, etc): Yes-eliquis previously for DVT related to TDC-discontinued for anemia Malignancy (including skin cancer): Yes-Esophageal CA Last hospitalization: 02/17/2024-hip replacement BP 128/76 Pulse 93 Temp 36.9 ?C (98.5 ?F) (Temporal) Ht 177.8 cm (5' 10") Wt 73.9 kg (162 lb 14.7 oz) SpO2 99% BMI 23.38 kg/m? PAST MEDICAL HISTORY Diagnosis Date Advance directive discussed with patient 02/09/2022 Discussed 02/2022, packets provided AK (actinic keratosis) 09/07/2020 One on the right forearm dorsal, three on the left forearm dorsal and one left side of face hear hair line about eye level. Tx cryo 09/2020 Aortic valve stenosis 07/26/2015 Ascending aorta dilation (HCC) 09/21/2023 09/21/2023: 4.1cm Asthma BPH (benign prostatic hyperplasia) 07/20/2014 Carpal tunnel syndrome of right wrist CKD (chronic kidney disease) stage 4, GFR 15-29 ml/min (HCC) 01/03/2024 On dialysis and seeing Dr. Greenberg. Closed wedge compression fracture of T10 vertebra (HCC) 07/12/2023 Coronary artery disease involving [place] coronary artery without angina pectoris Seeing Dr. Noland DDD (degenerative disc disease), lumbar 11/04/2019 Elevated blood sugar 03/11/2024 Esophageal adenocarcinoma (HCC) 08/09/2020 Essential hypertension, benign GERD (gastroesophageal reflux disease) 07/12/2009 History of kidney stones 07/20/2014 Iron deficiency anemia due to chronic blood loss 05/25/2020 Iron malabsorption 05/25/2020 Kidney stone Kyphosis (acquired) (postural) 07/30/[address] 03/11/2024 DPA: Lacho (step daughter) Malignant 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) 04/15/2020 Medicare annual wellness visit, subsequent 01/13/2021 Medical B eligibilty date 03/09/19 Date of last exam 01/13/2021 Mixed hyperlipidemia MRSA (methicillin resistant Staphylococcus aureus) 12/01/2016 treated with course of Linezolid beginning 10/29/16 Nonrheumatic aortic valve disorder On tube feeding diet 08/14/2020 History: 65 year old male s/p Adrián Roger esophagectomy, Pyloromyotomy, Jejunostomy tube placement for esophageal adenocarcinoma -Diet: Isosource 1.5 to 50 cc hour with 100 cc water flushes 8 times per day and Bene protein 3 times per day Removed 11/17/2020 Personal history of colonic polyps 12/27/2009 Rn Wound's nodules 03/30/2023 Will try pamelor Pleural effusion 03/11/2021 Stable in f/u studies. Pressure ulcer of unspecified buttock, stage 2 (HCC) 01/03/2024 Bilaterally. 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 4 07/23/2017 S/P TAVR (transcatheter aortic valve replacement) 04/30/2024 Needs dental prophylaxis. 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 Due to repeat anemia 01/01/[address] (more content not included)... [facility]03-05-2025 History of Present illness Narrative* Lacho Pa PA-C - 06/11/2024 1:19 PM EST [facility] Transplant Evaluation CC: Consultation for Kidney transplant evaluation. Referred by: Maria Victoria Scott [address] [address] I will communicate with the referring provider by letter and/or shared electronic medical record. HPI: This is a 69 year old gentleman who presents for kidney transplant evaluation related to ESRD secondary to a history of HTN. Patient has an additional PMHX of CAD s/p CABG x 4 vessels 2003 Non-stemi with 2 stents at [facility] in 2018 HLD aortic valve stenosis s/p TAVR with bioprosthetic valve 02/2019 Asthma GERD esophageal CA-Dr. 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 concurrent chemotherapy and radiation with carboplatin and paclitaxel 05/2020-06/2020 Adrián Roger esophagectomy 08/09/2020 Adjuvant nivolumab DDD BPH kidney stones left hip replacement 02/15/2024. Hematology note mentions kidney biopsy in October of 2023 with acute tubular necrosis and acute tubulointerstitial nephritis-results not in CE. Pt initiated on hemodialysis 03/28/2024 through a TDC-plan for aVF on Sunday06/16/2024-Perkins Patient presents ambulatory with cane. Does patient work?: No Smoking Status: Never smoker UTI: No Kidney stones: Yes-Passed on own Chronic anti-coagulation: No Midodrine: No Abdominal surgeries: Yes Hernia repair x 2 (inguinal and abdominal wall Cardiovascular Disease?: Yes Peripheral Arterial Disease (TIA non-embolic, CVA non-embolic, amputation, abnormal PVRs, decreasedpulses, etc): No Stroke: No Claudication: No Carotid Artery Stenosis: No DM: No Diabetic ulcers or chronic wounds: No Prior transplant: No CKD: Yes: Cause of CKD: HTN Hemodialysis, Start date: 03/28/2024 Living Donors: Yes Residual UO: 500 ml-1000 ml daily Hypercoagulable (hx of DVT/PE, miscarriages, prior use of anticoagulation, etc): Yes-eliquis previously for DVT related to TDC-discontinued for anemia Malignancy (including skin cancer): Yes-Esophageal CA Last hospitalization: 02/17/2024-hip replacement BP 128/76 Pulse 93 Temp 36.9 C (98.5 F) (Temporal) Ht 177.8 cm (5' 10") Wt 73.9 kg (162 lb 14.7 oz) SpO2 99% BMI 23.38 kg/m PAST MEDICAL HISTORY Diagnosis Date Advance directive discussed with patient 02/09/2022 Discussed 02/2022, packets provided AK (actinic keratosis) 09/07/2020 One on the right forearm dorsal, three on the left forearm dorsal and one left side of face hear hair line about eye level. Tx cryo 09/2020 Aortic valve stenosis 07/26/2015 Ascending aorta dilation (HCC) 09/21/2023 09/21/2023: 4.1cm Asthma BPH (benign prostatic hyperplasia) 07/20/2014 Carpal tunnel syndrome of right wrist CKD (chronic kidney disease) stage 4, GFR 15-29 ml/min ([facility]) 01/03/2024 On dialysis and seeing Dr. Greenberg. Closed wedge compression fracture of T10 vertebra ([facility]) 07/12/2023 Coronary artery disease involving [place] coronary artery without angina pectoris Seeing Dr. Noland DDD (degenerative disc disease), lumbar 11/04/2019 Elevated blood sugar 03/11/2024 Esophageal adenocarcinoma ([facility]) 08/09/2020 Essential hypertension, benign GERD (gastroesophageal reflux disease) 07/12/2009 History of kidney stones 07/20/2014 Iron deficiency anemia due to chronic blood loss 05/25/2020 Iron malabsorption 05/25/2020 Kidney stone Kyphosis (acquired) (postural) 07/30/[address] 03/11/2024 DPA: Lacho (step daughter) Malignant neoplasm of lower third of esophagus ([facility]) 04/15/2020 Medicare annual wellness visit, subsequent 01/13/2021 Medical B eligibilty date 03/09/19 Date of last exam 01/13/2021 Mixed hyperlipidemia MRSA (methicillin resistant Staphylococcus aureus) 12/01/2016 treated with course of Linezolid beginning 10/29/16 Nonrheumatic aortic valve disorder On tube feeding diet 08/14/2020 History: 65 year old male s/p [place] Roger esophagectomy, Pyloromyotomy, Jejunostomy tube placement for esophageal adenocarcinoma -Diet: Isosource 1.5 to 50 cc hour with 100 cc water flushes 8 times per day and Bene protein 3 times per day Removed 11/17/2020 Personal history of colonic polyps 12/27/2009 Rn Wound's nodules 03/30/2023 Will try pamelor Pleural effusion 03/11/2021 Stable in f/u studies. Pressure ulcer of unspecified buttock, stage 2 (HCC) 01/03/2024 Bilaterally. 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 4 07/23/2017 S/P TAVR (transcatheter aortic valve replacement) 04/30/2024 Needs dental prophylaxis. 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 Due to repeat anemia 01/01/2024felt Eliquis could be stopped since risk did not out way benefit. Upper GI bleed 05/25/2020 PAST SURGICAL HISTORY Procedure Laterality Date ADENOIDECTOMY PRIMARY <AGE 11 Adenoidectomy AORTIC VALVE RECONSTRUCTION 03/03/2019 s/p TAVR BYP OTH/THN VEIN CAROTID-SUBCLAVIAN 2002 Bypass graft carotid subcl COLONOSCOPY FLX DX W/COLLJ SPEC WHEN PFRMD 02/28/2013 COLONOSCOPY FLX DX W/COLLJ SPEC WHEN PFRMD 12/06/2016 repeat in 5 yrs COLONOSCOPY SCRN NOT HIGH RISK 06/01/2020 COLONOSCOPY W/BIOPSY SINGLE/MULTIPLE 02/22/2007 Diminutive polyp distal [id number] ECHO 01/08/2021 EGD 04/15/2020 HEART CATHETERIZATION 12/2018 with 2 stents IMPLANT MESH OPN HERNIA RPR/DEBRIDEMENT CLOSURE 03/06/2007 LAPAROSCOPY SURG RPR INITIAL INGUINAL HERNIA 03/06/2007 umbilical NM CARDIAC STRESS TEST 01/08/2021 PAST SURGICAL HISTORY OF Right 2016 incision and drainage right axillary abscess REPAIR ANORECTAL FISTULA W/PLUG 12/06/2016 REPAIR FIRST ABDOMINAL WALL HERNIA 03/06/2007 right STENT - CORONARY 2014 x3 & x2 12/2018 TONSILLECTOMY PRIMARY/SECONDARY <AGE 11 Tonsillectomy TOT/SUB ESOPHAGECTOMY W/THORACOT 08/09/2020 Adrián Roger esophagectomy, jejunostomy tube placement TOTAL HIP REPLACEMENT Left 02/15/2024 Current Outpatient Medications Medication Sig OLANZapine (ZYPREXA) 2.5 mg tablet Take 1 tablet by mouth daily at bedtime. atorvastatin (LIPITOR) 80 mg tablet Take 1 tablet by mouth daily at bedtime. metoprolol tartrate, short acting, (LOPRESSOR) 25 mg tablet Take 1 tablet by mouth two times a day. fluticasone (FLONASE) 50 mcg/actuation nasal spray Use 1 Hutchins in each nostril once daily. (Patienttaking differently: Use 1 Hutchins in each nostril as needed.) ferrous sulfate (SLOW FE) 137 mg (45 mg iron) TbER Take 1 tablet by mouth every other day. ascorbic acid, vitamin C, (VITAMIN C) 500 mg tablet Take 1 tablet by mouth every other day. ondansetron orally disintegrating (ZOFRAN ODT) 4 mg disintegrating tablet Take 1 tablet by mouth every 6 hours as needed for nausea/vomiting. ezetimibe (ZETIA) 10 mg tablet Take 1 tablet by mouth once daily. nitroglycerin sublingual (NITROQUICK) 0.4 mg SL tablet Dissolve 1 tablet under the tongue every 5 minutes as needed for chest pain. (Patient not taking: Reported on 06/11/2024) enteric contrast (will be provided with radiology test) For CT ABD/PEL W IVCON Routine order Administer, As Directed One Time Only, via Oral, Rectal, both Oral and Rectal, Enteric Tube, Stoma or Indwelling Catheter, Enteric Contrast as designated per enteric contrast guidelines (Patient not taking:Reported on 06/11/2024) pantoprazole DR (PROTONIX) 40 mg tablet Take 1 tablet by mouth two times a day. acetaminophen (TYLENOL) 500 mg tablet Take 500 mg by mouth every 6 hours as needed. No current facility-administered medications for this visit. FAMILY HISTORY Problem Relation Age of Onset Cancer Mother OVARIAN AND THYROID CA Breast Cancer Mother Ischemic Heart Disease Father from Cerebral Hemmorrhage age 50 other (mva) Brother Cancer Sister Bone Marrow CA at 59 y/o Ischemic Heart Disease Sister 49 at 57y/o No Known Problems Sister Thyroid Sister Cancer Paternal Aunt cancer of colon other (unkown) Brother Family Status Relation Name Status Mo Alive breast cancer Fa at age 50 [place] Willem Aguilerary Sis Khushbu Sis Mariella Sis Marilou Alive Sis Annamarie Alive PAunt (Not Specified) Willem Hall Alive No partnership data on file Social History Tobacco Use Smoking status: Never Smokeless tobacco: Never Vaping Use Vaping status: Never Used Substance Use Topics Alcohol use: Not Currently Comment: none Drug use: No Pre-transplant testing: Cardiac: Echocardiogram completed 09/21/2023: CONCLUSIONS: - Technically difficult exam due to body habitus. - Exam indication: Routine surveillance of prosthetic valve (>3yrs) - The left ventricle is normal in size. There is mild concentric left ventricular hypertrophy. Left ventricular systolic function is normal. EF = 56 5% (2D 4-ch.) Grade I left ventricular diastolic dysfunction. - The right ventricle is normal in size. Right ventricular systolic function is normal. - The visualized aorta is dilated with a maximal dimension of 4.1 cm. - Bioprosthetic prosthetic aortic valve. There is mild (1+ - 2+) aortic valve regurgitation. The peak gradient is 12 mmHg, the mean gradient is 6 mmHg and the dimensionless valve index is 0.52. Adenosine Nuclear Stress Test: Needs completed EKG: Today CXR completed 02/02/2024: IMPRESSION: Moderate left and small right pleural effusions with bibasilar consolidations/atelectasis, similar to the prior study. CT Chest WO IVCON completed 04/17/2024: IMPRESSION: No CT evidence of acute abnormality, recurrence or new metastasis in the thorax. Worsening T10 presumed pathological compression fracture with superior endplate defects. Lung parenchyma and airways: No consolidation. No suspicious pulmonary nodule. Small calcified pulmonary nodules, likely sequelae from prior granulomatous disease. Right upper lobe 2 mm nodule on series 10 image 56; another RIGHT upper lobe 2 mm nodule on image 66; 2 RIGHT upper lobe pleural-based tiny nodules on images 38 and 43; all unchanged from prior examination. The central airways are patent. CT ABD/PEL WO IVCON completed 04/17/2024: IMPRESSION: No evidence of acute abnormalities or metastasis in the abdomen and pelvis. Kidneys: Similar appearance of RIGHT lower pole renal cyst and LEFT upper pole hypodensity No calculus, hydronephrosis or finding to suggest a mass in the unenhanced kidney. Vasculature: Arterial atherosclerotic disease without aneurysm. Colonoscopy completed 06/01/2020: CONVERTED FINAL DIAGNOSIS Colon, rectosigmoid, polypectomy - Tubular adenoma. KL/rw 06/02/2020 Repeat in 5 years Sensitizations: Prior transplant: No Blood transfusions: Yes Rabbit: Yes: PET Immunizations: HBV series: Received, date 04/22/2024, 02/18/2024, 01/21/2024 Pneumovax: Received, date 11/30/2023 Influenza vaccine: Received, date 02/01/2024 Covid vaccine: Not received, patient encouraged to obtain Ezekiel Shah RN Exclusion criteria for HCV organs (IF POTENTIAL RECIPIENT MEETS ANY OF THESE CRITERIA, THEY ARE EITHER NOT ELIGIBLE, OR THEY MUST SEE HEPATOLOGY FOR INFORMED CONSENT) [] HCV-RNA positive (such individuals may receive HCV donor positive organs, but are not part of this D+/R- program) [] HIV Infection [] Evidence of cirrhosis by imaging or biopsy [] or lactating women [] Prior surgery with altered gastroduodenal anatomy (Gastric bypass, Gastric sleeve) [] Required continued use of certain medications that may interfere with DAA absorption including: [] Statins [] PPI if dose required is > 20mg per day [] Amiodarone [] Anticonvulsants/mood stabilizers (eg: carbamazepine, phenytoin, oxcarbazine) [] Digoxin [] Current severe systemic infection [] Current illicit drug use Informed Consent for the option of considering an HCV positive organ MUST CHOOSE ONE OF THE OPTIONS BELOW [] Yes, the patient is interested. Jacob Cuba Syeda wishes to pursue the option of obtaining a HCV positive organ. Advantages and disadvantages of HCV viremic donor transplantation were reviewed. Patient received education on the risk of transmission of HCV following HCV viremic donor transplantation,the natural history of HCV, current therapies for HCV, side effects of therapy, and need for monitoring during and after therapy for HCV. Provided pt with educational slide packet and handout titled "Transplantation of Hepatitis C Viremic Organs into Hepatitis C Negative Recipients". The risks of HCV transmission post-transplant, fibrosing cholestatic HCV, treatment failure, chronic HCV, cirrhosis and hepatic and non-hepatic manifestations of acute and chronic HCV were specifically discussed. Patient verbalized understanding of the risks and benefits of receiving a hepatitis C viremic organand provided verbal consent to be enrolled in the protocol. All their questions were answered. [x] No, the patient is not interested in this option. [] The patient would like more time to consider this option. Patient has been educated and can callback regarding accepting or declining this option. Seen by Lacho Pa PA-C REVIEW OF SYSTEMS: Comprehensive ROS obtained and negative unless noted in above HPI. PHYSICAL EXAM: BP 128/76 Pulse 93 Temp 36.9 C (98.5 F) (Temporal) Ht 177.8 cm (5' 10") Wt 73.9 kg (162 lb 14.7 oz) SpO2 99% BMI 23.38 kg/m General appearance: Well appearing, alert, in no acute distress, well-hydrated, well nourished. Skin: Skin color, texture, turgor normal, no suspicious rashes or lesions Head: Normocephalic, no masses, lesions, tenderness or abnormalities Eyes: Anicteric sclera. Extraocular movements are intact. Cardiac: RRR Lungs:Respirations unlabored. CTAB Abdomen: Normal abdominal exam, Abdomen soft, non-tender. Bowel sounds normal. No masses, organomegaly Extremities: No deformities, edema, skin discoloration, clubbing or cyanosis. Good capillary refill. Musculoskeletal: No joint swelling, deformity, or tenderness Peripheral pulses: Normal Neuro: Gait normal. Sensation grossly intact. Dialysis Access: TDC ASSESSMENT: Mr. Landa is a 69 year old male presenting today for pre-transplant candidacy evaluation. ESRD on dialysis since 03/2024 via TDC 2/2 presumed HTN. Other PMH of CAD s/p CABGx4 in 2002, NSTEMI s/p 2 stents in 2018, aortic valve stenosis s/p TAVR with bioprosthetic valve in 2018, esophageal CA s/p chemo, radiation, immunotherapy and esophagectomy in 2020 without recurrence, HLD, GERD, asthma, BPH, nephrolithiasis, L hip replacement in 2023, inguinal & abdominal wall hernia repair with mesh (unknown side). Still makes urine but reduced amount. Tolerating dialysis well. Was started on AC due to clot 2/2 TDC but taken off of eliquis due to anemia. +NSTEMI No h/o DVT, PE, or CVA Not on Midodrine + h/o malignancy - esophageal CA in remission Not currently on anticoagulation -The kidney transplant and kidney/pancreas transplant operations were discussed with the patient atlength, and all questions were answered to the patient's satisfaction. Risks, benefits, and alternatives discussed. Risks discussed include but are not limited to: bleeding, infection, , IA, DVT, PE, CVA, risk of damage to surrounding structures, risk of lymphocele, urine leak, stricture, lower extremity complications, risk of bowel complications, bowel obstruction, and anastomotic leak. Also discussed the need for immunosuppressant medications for the lifetime of the allograft and the associated risks of infection and malignancy over time. PLAN: - CT with moderate calcifications in b/l EIA - Patient is a marginal surgical candidate for renal transplantation. Pending acceptable findings on the remainder of pre transplant evaluation - Would need clearance from local heme / onc - would prefer to have clearance from [facility] cards Lacho Pa PA-C Patient was not evaluated by staff surgeon, surgeon unavailable at this time Surgeon to review case, find addendum below: [facility] in [facility] NoteHNO ID: [id number] Author: ROBER IGLESIAS RN Service: ? Author Type: Registered Nurse Type: Progress Notes Filed: 06/11/2024 12:07 Note Text: PRE-TRANSPLANT PATIENT EDUCATION NOTE Type of Transplant: Kidney Informed Consent for Evaluation signed: Yes Multiple Listing Form signed: Yes READINESS TO LEARN: Cognitive Ability: Alert and oriented Motivation to Learn: Interested Family Support: High - Very involved in pt care Instruction Provided to: Patient and Family member Patient Learns Best by: Multiple Methods Factors Affecting Learning: None Physical Limitations Affecting Learning: None LEARNING RESPONSE: Diagnosis: HTN Education Topics/Teaching Points: -Discussed living donor evaluation and approval process. -Discussed the evaluation and listing process. -Discussed the different types of donors (KDPI scoring, DCD, High Risk). -Explained EPTS scoring and how it is calculated. -Explained the surgical procedure and potential complications, surgeons, hospital stay at the time of transplant. -Explained lifetime immunosuppression therapy and frequency of blood draws/labs post-op and post-op course of treatment. -Reviewed National and [facility] outcomes from the most recent [facility] center-specific report; a copy of the program summary was given to the patient. -Explained that if the transplant is not performed at a Medicare-approved transplant center it could affect the ability to have immunosuppressive medications paid under Medicare Part B. Supplemental Material: -Pre-Transplant Patient Education Folder -[facility]: Questions AND Answers for Transplant Candidates about Multiple Listing and Waiting Time Transfer -[facility]OS: Questions AND Answers for Transplant Candidates about Kidney Allocation Policy -Directions to access [facility]. -Informed Consent for Transplant Program Participation patient education packet -National Kidney Registry pamphlet -Covid-19 Vaccination for Transplant Candidates Method of Instruction: Group class instruction Written instruction/Handouts Verbal instruction Patient/Family Response: Patient asked appropriate questions, which were answered satisfactorily. Follow-Up Plan: Complete - No need for follow-up Referral/Recommendation: None Rober Iglesias RN [facility] Coordinator[facility] History of Present illness Narrative* Rober Iglesias RN - 06/11/2024 12:06 PM EST PRE-TRANSPLANT PATIENT EDUCATION NOTE Type of Transplant: Kidney Informed Consent for Evaluation signed: Yes Multiple Listing Form signed: Yes READINESS TO LEARN: Cognitive Ability: Alert and oriented Motivation to Learn: Interested Family Support: High - Very involved in pt care Instruction Provided to: Patient and Family member Patient Learns Best by: Multiple Methods Factors Affecting Learning: None Physical Limitations Affecting Learning: None LEARNING RESPONSE: Diagnosis: HTN Education Topics/Teaching Points: -Discussed living donor evaluation and approval process. -Discussed the evaluation and listing process. -Discussed the different types of donors (KDPI scoring, DCD, High Risk). -Explained EPTS scoring and how it is calculated. -Explained the surgical procedure and potential complications, surgeons, hospital stay at the time of transplant. -Explained lifetime immunosuppression therapy and frequency of blood draws/labs post-op and post-opcourse of treatment. -Reviewed National and [facility] outcomes from the most recent [facility] center-specific report; a copy of theprogram summary was given to the patient. -Explained that if the transplant is not performed at a Medicare-approved transplant center it could affect the ability to have immunosuppressive medications paid under Medicare Part B. Supplemental Material: -Pre-Transplant Patient Education Folder -[facility]: Questions & Answers for Transplant Candidates about Multiple Listing and Waiting Time Transfer -[facility]: Questions & Answers for Transplant Candidates about Kidney Allocation Policy -Directions to access [facility]'s data through the [facility] website. -Informed Consent for Transplant Program Participation patient education packet -National Kidney Registry pamphlet -Covid-19 Vaccination for Transplant Candidates Method of Instruction: Group class instruction Written instruction/Handouts Verbal instruction Patient/Family Response: Patient asked appropriate questions, which were answered satisfactorily. Follow-Up Plan: Complete - No need for follow-up Referral/Recommendation: None Rober Iglesias RN Pre-Hang Gliding Instructor documented in this encounterCommunity [facility]03-[facility]-2025 Instructions* Patient Instructions* Vicente Addison RD - 06/11/2024 11:13 AM EST Eat 3 meals per day to ensure adequate nutrition. Combine a lean protein with a complex carbohydrate for improved energy levels. Use the healthy plate at mealtimes: 1/4 plate lean protein, 1/4 plate complex carbohydrates, 1/2 plate non starchy vegetables Limit sodium intake to 2000 mg per day. Start reading nutrition labels Choose frozen meals with less than 600 mg sodium per serving. Aim for less than 300 mg sodium per serving on other food products. Choose fresh and frozen fruits and vegetables. If you do choose canned foods, rinse and drain to reduce sodium Avoid adding extra salt to foods when cooking. Consider using salt-free seasonings for added flavor(like Mrs. Dash, garlic powder, onion powder, etc.) Limit restaurant foods. If eating out, consider getting sauces on the side, asking your banquet server on call to have less salt added to your meal, and limit your portion. Eggs, yogurt, nuts/nut butters, seeds, meat/fish/poultry, cheese, cottage cheese, and yogurt all contain protein. If on dialysis, your body needs more protein. Include protein each time you eat. Consider using a protein shake if this is suggested by your dialysis dietitian (such as Bryn or [facility]). If not on dialysis, your body needs less protein. Consider limiting meat, fish, and poultry to 1 meal daily, no more than the size of a deck of cards. Incorporate plant-based protein, dairy, or eggs for lower protein options at other meals Limit sources of potassium and phosphorous as needed to maintain normal lab values Limit potassium to 2000 mg or less per day. See handout for more info. Limit phosphorous to 800-1000 mg or less per day. See handout for more info. If on dialysis, continue to limit sources of potassium and phosphorus as per your dialysis RD Stay active if able. Aim for 150 minutes of exercise per week. [facility] History of Present illness Narrative* Vicente Addison, RD - 06/11/2024 9:45 AM EST AMBULATORY PATIENT EDUCATION NOTE - Shared Nutrition Group (In Person) TOPIC:?Pre-kidney transplant nutrition evaluation Malnutrition Screening Significant unintentional weight loss? No Eating less than 75% of usual intake for more than 2 weeks? No Potential Signs of Inflammation: chronic condition READINESS TO LEARN: Cognitive Ability: Alert and oriented Motivation To Learn: Interested Family Support: High - Very involved in pt care Instruction Provided To: Patient and family member Patient Learns Best By: Multiple Methods Factors Affecting Learning: None Physical Limitations Affecting Learning: None LEARNING RESPONSE Patient/Family verbalizes understanding of pre-operative instructions and correct actions to take to follow pre-operative instructions. Anthropometrics: Height: Last 1 Encounter Ht Readings: Date: Ht: 06/11/2024 177.8 cm (5' 10") Last 15 Encounter Wt Readings: Date: Wt: 06/11/2024 73.9 kg (162 lb 14.7 oz) 06/19/2023 88 kg (194 lb)] 23.38 kg/m2 Resting Metabolic Rate: 1514 Weight change: -32lbs (17%) in 1 year. Not considered clinically significant. Nutrition Assessment: Patient presents for nutrition clearance prior to kidney transplant. Optimizing nutritional adequacy will support recovery post-transplant. 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 Combine a lean protein with a complex carbohydrate for improved energy levels. Use the healthy plate at mealtimes: 1/4 plate lean protein, 1/4 plate complex carbohydrates, 1/2 plate non starchy vegetables Limit sodium intake to 2000 mg per day. Start reading nutrition labels Choose frozen meals with less than 600 mg sodium per serving. Aim for less than 300 mg sodium per serving on other food products. Choose fresh and frozen fruits and vegetables. If you do choose canned foods, rinse and drain to reduce sodium Avoid adding extra salt to foods when cooking. Consider using salt-free seasonings for added flavor(like Mrs. Lynne, garlic powder, onion powder, etc.) Limit restaurant foods. If eating out, consider getting sauces on the side, asking your banquet server on call to have less salt added to your meal, and limit your portion. Eggs, yogurt, nuts/nut butters, seeds, meat/fish/poultry, cheese, cottage cheese, and yogurt all contain protein. If on dialysis, your body needs more protein. Include protein each time you eat. Consider using a protein shake if this is suggested by your dialysis dietitian (such as Bryn or [employer] [facility]). If not on dialysis, your body needs less protein. Consider limiting meat, fish, and poultry to 1 meal daily, no more than the size of a deck of cards. Incorporate plant-based protein, dairy, or eggs for lower protein options at other meals Limit sources of potassium and phosphorous as needed to maintain normal lab values Limit potassium to 2000 mg or less per day. See handout for more info. Limit phosphorous to 800-1000 mg or less per day. See handout for more info. If on dialysis, continue to limit sources of potassium and phosphorus as per your dialysis RD Stay active if able. Aim for 150 minutes of exercise per week. Nutrition Pre-Transplant Assessment: No contraindications and Nutrition Concerns: Patient reports 65lbs weight loss over the past 6 months. Per chart review -32lbs (17%) in 1 year. Not considered clinically significant. Patient reports of a good appetite. Patient is to follow-up with in patient nutrition services after surgery. Referred/Supervised by: Transplant/Hassan Consult Billing Type: Ambulatory Group/30 min 1 unit SIGNATURE: Vicente Addison RD PATIENT NAME: Jacob Landa DATE: June 11, 2024 TIME: 10:45 AM PAGER: [facility] NoteHNO ID: [id number] Author: VICENTE ADDISON RD Service: ? Author Type: Registered Dietitian Type: Progress Notes Filed: 06/11/2024 11:13 Note Text: AMBULATORY PATIENT EDUCATION NOTE - Shared Nutrition Group (In Person) TOPIC:?Pre-kidney transplant nutrition evaluation Malnutrition Screening Significant unintentional weight loss? No Eating less than 75% of usual intake for more than 2 weeks? No Potential Signs of Inflammation: chronic condition READINESS TO LEARN: Cognitive Ability: Alert and oriented Motivation To Learn: Interested Family Support: High - Very involved in pt care Instruction Provided To: Patient and family member Patient Learns Best By: Multiple Methods Factors Affecting Learning: None Physical Limitations Affecting Learning: None LEARNING RESPONSE Patient/Family verbalizes understanding of pre-operative instructions and correct actions to take to follow pre-operative instructions. Anthropometrics: Height: Last 1 Encounter Ht Readings: Date: Ht: 06/11/2024 177.8 cm (5' 10") Last 15 Encounter Wt Readings: Date: Wt: 06/11/2024 73.9 kg (162 lb 14.7 oz) 06/19/2023 88 kg (194 lb)] 23.38 kg/m2 Resting Metabolic Rate: 1514 Weight change: -32lbs (17%) in 1 year. Not considered clinically significant. Nutrition Assessment: Patient presents for nutrition clearance prior to kidney transplant. Optimizing nutritional adequacy will support recovery post-transplant. 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 Combine a lean protein with a complex carbohydrate for improved energy levels. Use the healthy plate at mealtimes: 1/4 plate lean protein, 1/4 plate complex carbohydrates, 1/2 plate non starchy vegetables Limit sodium intake to 2000 mg per day. Start reading nutrition labels Choose frozen meals with less than 600 mg sodium per serving. Aim for less than 300 mg sodium per serving on other food products. Choose fresh and frozen fruits and vegetables. If you do choose canned foods, rinse and drain to reduce sodium Avoid adding extra salt to foods when cooking. Consider using salt-free seasonings for added flavor (like Mrs. Dash, garlic powder, onion powder, etc.) Limit restaurant foods. If eating out, consider getting sauces on the side, asking your banquet server on call to have less salt added to your meal, and limit your portion. Eggs, yogurt, nuts/nut butters, seeds, meat/fish/poultry, cheese, cottage cheese, and yogurt all contain protein. If on dialysis, your body needs more protein. Include protein each time you eat. Consider using a protein shake if this is suggested by your dialysis dietitian (such as Bryn or [employer] [facility]). If not on dialysis, your body needs less protein. Consider limiting meat, fish, and poultry to 1 meal daily, no more than the size of a deck of cards. Incorporate plant-based protein, dairy, or eggs for lower protein options at other meals Limit sources of potassium and phosphorous as needed to maintain normal lab values Limit potassium to 2000 mg or less per day. See handout for more info. Limit phosphorous to 800-1000 mg or less per day. See handout for more info. If on dialysis, continue to limit sources of potassium and phosphorus as per your dialysis RD Stay active if able. Aim for 150 minutes of exercise per week. Nutrition Pre-Transplant Assessment: No contraindications and Nutrition Concerns: Patient reports 65lbs weight loss over the past 6 months. Per chart review -32lbs (17%) in 1 year. Not considered clinically significant. Patient reports of a good appetite. Patient is to follow-up with in patient nutrition services after surgery. Referred/Supervised by: Transplant/Hassan Consult Billing Type: Ambulatory Group/30 min 1 unit SIGNATURE: Vicente Addison RD PATIENT NAME: Jacob Cuba DATE: June 11, 2024 TIME: 10:45 AM PAGER:[facility]03-05-[facility]25 NoteEducation (DTBAMN) JACOB LANDA ([id number]) 1955 M Date Time Provider Department 06/11/24 9:45 AM VICENTE ADDISON DTBAMN Reason for Visit: Patient Education [91] Primary Visit Diagnosis:Dietary counseling and surveillance [Z71.3] Other Visit Diagnosis:Awaiting organ transplant [Z76.82] During your visit today, we recorded the following information about you: Allergies As of Date: 06/11/2024 Noted Allergy Reaction SEASONAL ALLERGIES 07/12/2023 14 - Other: See Comments Comments: Sneezing, watery eyes, runny nose. Date Reviewed: 06/11/2024 Reviewed by: Vicente Addison RD - Fully Assessed Prescriptions as of 06/11/2024 - OLANZapine (ZYPREXA) 2.5 mg tablet Take 1 tablet by mouth daily at bedtime. - atorvastatin (LIPITOR) 80 mg tablet Take 1 tablet by mouth daily at bedtime. - metoprolol tartrate, short acting, (LOPRESSOR) 25 mg tablet Take 1 tablet by mouth two times a day. - fluticasone (FLONASE) 50 mcg/actuation nasal spray Use 1 Hutchins in each nostril once daily. - ferrous sulfate (SLOW FE) 137 mg (45 mg iron) TbER Take 1 tablet by mouth every other day. - ascorbic acid, vitamin C, (VITAMIN C) 500 mg tablet Take 1 tablet by mouth every other day. - ondansetron orally disintegrating (ZOFRAN ODT) 4 mg disintegrating tablet Take 1 tablet by mouth every 6 hours as needed for nausea/vomiting. - ezetimibe (ZETIA) 10 mg tablet Take 1 tablet by mouth once daily. - nitroglycerin sublingual (NITROQUICK) 0.4 mg SL tablet Dissolve 1 tablet under the tongue every 5 minutes as needed for chest pain. - enteric contrast (will be provided with radiology test) For CT ABD/PEL W IVCON Routine order Administer, As Directed One Time Only, via Oral, Rectal, both Oral and Rectal, Enteric Tube, Stoma or Indwelling Catheter, Enteric Contrast as designated per enteric contrast guidelines - pantoprazole DR (PROTONIX) 40 mg tablet Take 1 tablet by mouth two times a day. - acetaminophen (TYLENOL) 500 mg tablet Take 500 mg by mouth every 6 hours as needed. Meds Comments as of 03/06/2016: Krill Oil 350 Mg Antacid Will follow Dr. Light instructions regarding ASA Disposition: Return if symptoms worsen or fail to improve. Follow-up and Disposition History for Encounter Date Provider Department Center 06/11/2024 [id number], [facility] DTB[facility] Main - A Bld Encounter Status:Closed by VICENTE ADDISON on 06/11/24[facility] 06-11-2024 NoteHNO ID: [id number] Author: GRABIEL RUFF MD Service: ? Author Type: Physician Type: Progress Notes Filed: 06/13/2024 11:56 Note Text: [facility] Transplant Evaluation CC: Consultation for Kidney transplant evaluation. Referred by: Maria Victoria Scott [facility] [address] [address] I will communicate with the referring provider by letter and/or shared electronic medical record. 69-year-old male here for pretransplant evaluation. End-stage renal disease apparently due to hypertension, has been on renal replacement therapy since March of this year. His past medical history is significant for significant coronary disease and valvular heart disease he is status post CABG in 2002, recurrent coronary disease status post PCI in 2018, status post bioprosthetic TAVR in 2018. Remote history of esophageal carcinoma that required an esophagectomy in 2020 follows closely with hematology oncology. Remote history of kidney stones. Doing well denies fever chills nausea vomiting dizziness lightheadedness. No potential living donors. Here with Medications reviewed HPI: This is a 69 year old gentleman who presents for kidney transplant evaluation related to ESRD secondary to a history of HTN. Patient has an additional PMHX of CAD s/p CABG x 4 vessels 2003 Non-stemi with 2 stents at [facility] in 2018 HLD aortic valve stenosis s/p TAVR with bioprosthetic valve 02/2019 Asthma GERD esophageal CA-Dr. 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 concurrent chemotherapy and radiation with carboplatin and paclitaxel 05/2020-06/2020 [place] [facility] esophagectomy 08/09/2020 Adjuvant nivolumab DDD BPH kidney stones left hip replacement 02/15/2024. Hematology note mentions kidney biopsy in October of 2023 with acute tubular necrosis and acute tubulointerstitial nephritis-results not in CE. Pt initiated on hemodialysis 03/28/2024 through a TDC-plan for aVF on Sunday06/16/2024-Anette Patient presents ambulatory with cane. Does patient work?: No Smoking Status: Never smoker UTI: No Kidney stones: Yes-Passed on own Chronic anti-coagulation: No Midodrine: No Abdominal surgeries: Yes Hernia repair x 2 (inguinal and abdominal wall Cardiovascular Disease?: Yes Peripheral Arterial Disease (TIA non-embolic, CVA non-embolic, amputation, abnormal PVRs, decreased pulses, etc): No Stroke: No Claudication: No Carotid Artery Stenosis: No DM: No Diabetic ulcers or chronic wounds: No Prior transplant: No CKD: Yes: Cause of CKD: HTN Hemodialysis, Start date: 03/28/2024 Living Donors: Yes Residual UO: 500 ml-1000 ml daily Hypercoagulable (hx of DVT/PE, miscarriages, prior use of anticoagulation, etc): Yes-eliquis previously for DVT related to TDC-discontinued for anemia Malignancy (including skin cancer): Yes-Esophageal CA Last hospitalization: 02/17/2024-hip replacement PAST MEDICAL HISTORY Diagnosis Date Advance directive discussed with patient 02/09/2022 Discussed 02/2022, packets provided AK (actinic keratosis) 09/07/2020 One on the right forearm dorsal, three on the left forearm dorsal and one left side of face hear hair line about eye level. Tx cryo 09/2020 Aortic valve stenosis 07/26/2015 Ascending aorta dilation (HCC) 09/21/2023 09/21/2023: 4.1cm Asthma BPH (benign prostatic hyperplasia) 07/20/2014 Carpal tunnel syndrome of right wrist CKD (chronic kidney disease) stage 4, GFR 15-29 ml/min (HCC) 01/03/2024 On dialysis and seeing Dr. Greenberg. Closed wedge compression fracture of T10 vertebra (HCC) 07/12/2023 Coronary artery disease involving [place] coronary artery without angina pectoris Seeing Dr. Noland DDD (degenerative disc disease), lumbar 11/04/2019 Elevated blood sugar 03/11/2024 Esophageal adenocarcinoma (HCC) 08/09/2020 Essential hypertension, benign GERD (gastroesophageal reflux disease) 07/12/2009 History of kidney stones 07/20/2014 Iron deficiency anemia due to chronic blood loss 05/25/2020 Iron malabsorption 05/25/2020 Kidney stone Kyphosis (acquired) (postural) 07/30/[address] 03/11/2024 DPA: Lacho (step daughter) Malignant 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) 04/15/2020 Medicare annual wellness visit, subsequent 01/13/2021 Medical B eligibilty date 03/09/19 Date of last exam 01/13/2021 Mixed hyperlipidemia MRSA (methicillin resistant Staphylococcus aureus) 12/01/2016 treated with course of Linezolid beginning 10/29/16 Nonrheumatic aortic valve disorder On tube feeding diet 08/14/2020 History: 65 year old male s/p [place] esophagectomy, Pyloromyotomy, Jejunostomy tube placement for esophageal adenocarcinoma -Diet: Isosource 1.5 to 50 cc hour with 100 cc water flushes 8 times per day and Bene protein 3 times per day Removed 11/17/2020 Personal history of colonic polyps 12/27/2009 Hector' (more content not included)...[facility]03-05-2025 History of Present illness Narrative* Grabiel Ruff MD - 06/11/2024 9:30 AM EST [facility] Transplant Evaluation CC: Consultation for Kidney transplant evaluation. Referred by: Maria Victoria Scott [id number] [address] I will communicate with the referring provider by letter and/or shared electronic medical record. 69-year-old male here for pretransplant evaluation. End-stage renal disease apparently due to hypertension, has been on renal replacement therapy sinceDecember of this year. His past medical history is significant for significant coronary disease andvalvular heart disease he is status post CABG in 2002, recurrent coronary disease status post PCI in 2018, status post bioprosthetic TAVR in 2018. Remote history of esophageal carcinoma that requiredan esophagectomy in 2020 follows closely with hematology oncology. Remote history of kidney stones. Doing well denies fever chills nausea vomiting dizziness lightheadedness. No potential living donors. Here with Medications reviewed HPI: This is a 69 year old gentleman who presents for kidney transplant evaluation related to ESRD secondary to a history of HTN. Patient has an additional PMHX of CAD s/p CABG x 4 vessels 2003 Non-stemi with 2 stents at [facility] in 2019 HLD aortic valve stenosis s/p TAVR with bioprosthetic valve 02/2019 Asthma GERD esophageal CA-Dr. 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 concurrent chemotherapy and radiation with carboplatin and paclitaxel 05/2020-06/2020 [place] esophagectomy 08/09/2020 Adjuvant nivolumab DDD BPH kidney stones left hip replacement 02/15/2024. Hematology note mentions kidney biopsy in October of 2023 with acute tubular necrosis and acute tubulointerstitial nephritis-results not in CE. Pt initiated on hemodialysis 03/28/2024 through a TDC-plan for aVF on Sunday06/16/2024-Anette Patient presents ambulatory with cane. Does patient work?: No Smoking Status: Never smoker UTI: No Kidney stones: Yes-Passed on own Chronic anti-coagulation: No Midodrine: No Abdominal surgeries: Yes Hernia repair x 2 (inguinal and abdominal wall Cardiovascular Disease?: Yes Peripheral Arterial Disease (TIA non-embolic, CVA non-embolic, amputation, abnormal PVRs, decreasedpulses, etc): No Stroke: No Claudication: No Carotid Artery Stenosis: No DM: No Diabetic ulcers or chronic wounds: No Prior transplant: No CKD: Yes: Cause of CKD: HTN Hemodialysis, Start date: 03/28/2024 Living Donors: Yes Residual UO: 500 ml-1000 ml daily Hypercoagulable (hx of DVT/PE, miscarriages, prior use of anticoagulation, etc): Yes-eliquis previously for DVT related to TDC-discontinued for anemia Malignancy (including skin cancer): Yes-Esophageal CA Last hospitalization: 02/17/2024-hip replacement PAST MEDICAL HISTORY Diagnosis Date Advance directive discussed with patient 02/09/2022 Discussed 02/2022, packets provided AK (actinic keratosis) 09/07/2020 One on the right forearm dorsal, three on the left forearm dorsal and one left side of face hear hair line about eye level. Tx cryo 09/2020 Aortic valve stenosis 07/26/2015 Ascending aorta dilation (HCC) 09/21/2023 09/21/2023: 4.1cm Asthma BPH (benign prostatic hyperplasia) 07/20/2014 Carpal tunnel syndrome of right wrist CKD (chronic kidney disease) stage 4, GFR 15-29 ml/min ([facility]) 01/03/2024 On dialysis and seeing Dr. Greenberg. Closed wedge compression fracture of T10 vertebra (HCC) 07/12/2023 Coronary artery disease involving [place] coronary artery without angina pectoris Seeing Dr. Noland DDD (degenerative disc disease), lumbar 11/04/2019 Elevated blood sugar 03/11/2024 Esophageal adenocarcinoma (HCC) 08/09/2020 Essential hypertension, benign GERD (gastroesophageal reflux disease) 07/12/2009 History of kidney stones 07/20/2014 Iron deficiency anemia due to chronic blood loss 05/25/2020 Iron malabsorption 05/25/2020 Kidney stone Kyphosis (acquired) (postural) 07/30/[address] 03/11/2024 DPA: Lacho (step daughter) Malignant 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) 04/15/2020 Medicare annual wellness visit, subsequent 01/13/2021 Medical B eligibilty date 03/09/19 Date of last exam 01/13/2021 Mixed hyperlipidemia MRSA (methicillin resistant Staphylococcus aureus) 12/01/2016 treated with course of Linezolid beginning 10/29/16 Nonrheumatic aortic valve disorder On tube feeding diet 08/14/2020 History: 65 year old male s/p [facility] esophagectomy, Pyloromyotomy, Jejunostomy tube placement for esophageal adenocarcinoma -Diet: Isosource 1.5 to 50 cc hour with 100 cc water flushes 8 times per day and Bene protein 3 times per day Removed 11/17/2020 Personal history of colonic polyps 12/27/2009 Rn Wound's nodules 03/30/2023 Will try pamelor Pleural effusion 03/11/2021 Stable in f/u studies. Pressure ulcer of unspecified buttock, stage 2 ([facility]) 01/03/2024 Bilaterally. 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 4 07/23/2017 S/P TAVR (transcatheter aortic valve replacement) 04/30/2024 Needs dental prophylaxis. 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 Due to repeat anemia 01/01/2024felt Eliquis could be stopped since risk did not out way benefit. Upper GI bleed 05/25/2020 PAST SURGICAL HISTORY Procedure Laterality Date ADENOIDECTOMY PRIMARY <AGE 11 Adenoidectomy AORTIC VALVE RECONSTRUCTION 03/03/2019 s/p TAVR BYP OTH/THN VEIN CAROTID-SUBCLAVIAN 2003 Bypass graft carotid subcl COLONOSCOPY FLX DX W/COLLJ SPEC WHEN PFRMD 02/28/2013 COLONOSCOPY FLX DX W/COLLJ SPEC WHEN PFRMD 12/06/2016 repeat in 5 yrs COLONOSCOPY SCRN NOT HIGH RISK 06/01/2020 COLONOSCOPY W/BIOPSY SINGLE/MULTIPLE 02/22/2007 Diminutive polyp distal [id number] ECHO 01/08/2021 EGD 04/15/2020 HEART CATHETERIZATION 12/2018 with 2 stents IMPLANT MESH OPN HERNIA RPR/DEBRIDEMENT CLOSURE 03/06/2007 LAPAROSCOPY SURG RPR INITIAL INGUINAL HERNIA 03/06/2007 umbilical NM CARDIAC STRESS TEST 01/08/2021 PAST SURGICAL HISTORY OF Right 2016 incision and drainage right axillary abscess REPAIR ANORECTAL FISTULA W/PLUG 12/06/2016 REPAIR FIRST ABDOMINAL WALL HERNIA 03/06/2007 right STENT - CORONARY 2015 x3 & x2 12/2018 TONSILLECTOMY PRIMARY/SECONDARY <AGE 11 Tonsillectomy TOT/SUB ESOPHAGECTOMY W/THORACOT 08/09/2020 Adrián Roger esophagectomy, jejunostomy tube placement TOTAL HIP REPLACEMENT Left 02/15/2024 Current Outpatient Medications Medication Sig OLANZapine (ZYPREXA) 2.5 mg tablet Take 1 tablet by mouth daily at bedtime. atorvastatin (LIPITOR) 80 mg tablet Take 1 tablet by mouth daily at bedtime. metoprolol tartrate, short acting, (LOPRESSOR) 25 mg tablet Take 1 tablet by mouth two times a day. fluticasone (FLONASE) 50 mcg/actuation nasal spray Use 1 Hutchins in each nostril once daily. (Patienttaking differently: Use 1 Hutchins in each nostril as needed.) ferrous sulfate (SLOW FE) 137 mg (45 mg iron) TbER Take 1 tablet by mouth every other day. ascorbic acid, vitamin C, (VITAMIN C) 500 mg tablet Take 1 tablet by mouth every other day. ondansetron orally disintegrating (ZOFRAN ODT) 4 mg disintegrating tablet Take 1 tablet by mouth every 6 hours as needed for nausea/vomiting. ezetimibe (ZETIA) 10 mg tablet Take 1 tablet by mouth once daily. pantoprazole DR (PROTONIX) 40 mg tablet Take 1 tablet by mouth two times a day. acetaminophen (TYLENOL) 500 mg tablet Take 500 mg by mouth every 6 hours as needed. nitroglycerin sublingual (NITROQUICK) 0.4 mg SL tablet Dissolve 1 tablet under the tongue every 5 minutes as needed for chest pain. (Patient not taking: Reported on 06/11/2024) enteric contrast (will be provided with radiology test) For CT ABD/PEL W IVCON Routine order Administer, As Directed One Time Only, via Oral, Rectal, both Oral and Rectal, Enteric Tube, Stoma or Indwelling Catheter, Enteric Contrast as designated per enteric contrast guidelines (Patient not taking:Reported on 06/11/2024) No current facility-administered medications for this visit. FAMILY HISTORY Problem Relation Age of Onset Cancer Mother OVARIAN AND THYROID CA Breast Cancer Mother Ischemic Heart Disease Father from Cerebral Hemmorrhage age 50 other (mva) Brother Cancer Sister Bone Marrow CA at 59 y/o Ischemic Heart Disease Sister 49 at 57y/o No Known Problems Sister Thyroid Sister Cancer Paternal Aunt cancer of colon other (unkown) Brother Family Status Relation Name Status Mo Alive breast cancer Fa at age 50 [place] Willem Aguilerary Melany Khushbu Melany Mariella Sis Marilou Alive Sis Annamarie Alive PAunt (Not Specified) Willem Hall Alive No partnership data on file Social History Tobacco Use Smoking status: Never Smokeless tobacco: Never Vaping Use Vaping status: Never Used Substance Use Topics Alcohol use: Not Currently Comment: none Drug use: No Pre-transplant testing: Cardiac: Echocardiogram completed 09/21/2023: CONCLUSIONS: - Technically difficult exam due to body habitus. - Exam indication: Routine surveillance of prosthetic valve (>3yrs) - The left ventricle is normal in size. There is mild concentric left ventricular hypertrophy. Left ventricular systolic function is normal. EF = 56 5% (2D 4-ch.) Grade I left ventricular diastolic dysfunction. - The right ventricle is normal in size. Right ventricular systolic function is normal. - The visualized aorta is dilated with a maximal dimension of 4.1 cm. - Bioprosthetic prosthetic aortic valve. There is mild (1+ - 2+) aortic valve regurgitation. The peak gradient is 12 mmHg, the mean gradient is 6 mmHg and the dimensionless valve index is 0.52. Adenosine Nuclear Stress Test: Needs completed EKG: Today CXR completed 02/02/2024: IMPRESSION: Moderate left and small right pleural effusions with bibasilar consolidations/atelectasis, similar to the prior study. CT Chest WO IVCON completed 04/17/2024: IMPRESSION: No CT evidence of acute abnormality, recurrence or new metastasis in the thorax. Worsening T10 presumed pathological compression fracture with superior endplate defects. Lung parenchyma and airways: No consolidation. No suspicious pulmonary nodule. Small calcified pulmonary nodules, likely sequelae from prior granulomatous disease. Right upper lobe 2 mm nodule on series 10 image 56; another RIGHT upper lobe 2 mm nodule on image 66; 2 RIGHT upper lobe pleural-based tiny nodules on images 38 and 43; all unchanged from prior examination. The central airways are patent. CT ABD/PEL WO IVCON completed 04/17/2024: IMPRESSION: No evidence of acute abnormalities or metastasis in the abdomen and pelvis. Kidneys: Similar appearance of RIGHT lower pole renal cyst and LEFT upper pole hypodensity No calculus, hydronephrosis or finding to suggest a mass in the unenhanced kidney. Vasculature: Arterial atherosclerotic disease without aneurysm. Colonoscopy completed 06/01/2020: CONVERTED FINAL DIAGNOSIS Colon, rectosigmoid, polypectomy - Tubular adenoma. KL/rw 06/02/2020 Repeat in 5 years Sensitizations: Prior transplant: No Blood transfusions: Yes Rabbit: Yes: PET Immunizations: HBV series: Received, date 04/22/2024, 02/18/2024, 01/21/2024 Pneumovax: Received, date 11/30/2023 Influenza vaccine: Received, date 02/01/2024 Covid vaccine: Not received, patient encouraged to obtain Ezekiel Shah RN I have confirmed and edited as necessary, the PFSH and ROS obtained by others. Grabiel Ruff MD Exclusion criteria for HCV organs (IF POTENTIAL RECIPIENT MEETS ANY OF THESE CRITERIA, THEY ARE EITHER NOT ELIGIBLE, OR THEY MUST SEE HEPATOLOGY FOR INFORMED CONSENT) [] HCV-RNA positive (such individuals may receive HCV donor positive organs, but are not part of this D+/R- program) [] HIV Infection [] Evidence of cirrhosis by imaging or biopsy [] or lactating women [] Prior surgery with altered gastroduodenal anatomy (Gastric bypass, Gastric sleeve) [] Required continued use of certain medications that may interfere with DAA absorption including: [] Statins [] PPI if dose required is > 20mg per day [] Amiodarone [] Anticonvulsants/mood stabilizers (eg: carbamazepine, phenytoin, oxcarbazine) [] Digoxin [] Current severe systemic infection [] Current illicit drug use Informed Consent for the option of considering an HCV positive organ MUST CHOOSE ONE OF THE OPTIONS BELOW [] Yes, the patient is interested. Jacob Landa wishes to pursue the option of obtaining a HCV positive organ. Advantages and disadvantages of HCV viremic donor transplantation were reviewed. Patient received education on the risk of transmission of HCV following HCV viremic donor transplantation,the natural history of HCV, current therapies for HCV, side effects of therapy, and need for monitoring during and after therapy for HCV. Provided pt with educational slide packet and handout titled "Transplantation of Hepatitis C Viremic Organs into Hepatitis C Negative Recipients". The risks of HCV transmission post-transplant, fibrosing cholestatic HCV, treatment failure, chronic HCV, cirrhosis and hepatic and non-hepatic manifestations of acute and chronic HCV were specifically discussed. Patient verbalized understanding of the risks and benefits of receiving a hepatitis C viremic organand provided verbal consent to be enrolled in the protocol. All their questions were answered. [x] No, the patient is not interested in this option. [] The patient would like more time to consider this option. Patient has been educated and can callback regarding accepting or declining this option. BP 128/76 Pulse 93 Temp 36.9 C (98.5 F) (Temporal) Ht 177.8 cm (5' 10") Wt 73.9 kg (162 lb 14.7 oz) SpO2 98% BMI 23.38 kg/m thin GENERAL: Nad NECK: no JVD LYMPH: non LUNGS: clear to a CV: rrr soft vaishnavi ABD:soft ,nontender EXT: no edema KARNOFSKY INDEX SCALE (Adult patients aged 18 and older) - Used to rate a patient's functional status before and after a medical procedure: Impression Marginal candidate for kidney transplantation due to the fact that he has significant comorbiditiesincluding, cardiovascular disease mainly coronary disease CABG and PCI's later and a valve replacement. He also has remote history of esophageal cancer. His age also increases his risk. Patient seems to be content has he doing with dialysis would like to think about transplantation Will try to obtain local cardiology clearance and eventually may need to meet our cardiology team here. Will communicate with Dr. Jenkins from hematology oncology regarding his esophageal carcinoma. 69 - Cares for self: unable to carry on normal activity or do active work. Unable to go to school or work. 1. Risks and benefits of transplantation including overall average increase in life expectancy and higher quality of life with transplantation for most but not all recipients; however, there is during the immediate transplant period a higher risk of that is variable depending on recipient anddonor factors. The time period to obtain equal risk to staying on the wait list, and gain of benefit from transplantation is also variable. 2. Types of donor organs discussed with patient, including Living donor (if appropriate), ,expanded criteria, donor cardiac (DCD) and CDC-High risk donor types. The relative benefit ofliving donation over donor transplantation explained. 3. We had a lengthy discussion regarding immunosuppression following transplantation. I explained our usual protocols, drugs involved, administration and monitoring. This included the risks of possibly life threatening infection, , and malignancy following transplantation, possible need for dialysis and re-admission to the hospital. I explained the potential outcomes, including uncommon but catastrophic outcome related or not to kidney transplant itself. Grabiel Ruff MD This note was partially generated using Inzen Studio voice recognition system, and there may be some incorrect words, spellings, and punctuation that were not noted in checking the note before saving. documented in this encounterCommunity [facility] Center03-03-2025 NoteHNO ID: [id number] Author: ALBERTA CANDELARIA MA Service: ? Author Type: Mechanical Engineering Advisor Type: Progress Notes Filed: 06/09/2024 15:53 Note Text: Scan on 06/06/2024 8:40 AM by Provider, External, PA-C: Hematology Scan on 06/06/2024 9:42 AM by Provider, External, PA-C: Chemistry Alberta Derrick, [facility]03-03-2025 History of Present illness Narrative* Alberta Candelaria MA - 06/09/2024 3:52 PM EST Scan on 06/06/2024 8:40 AM by Provider, ExternalOPAL: Hematology Scan on 06/06/2024 9:42 AM by Provider, External, OPAL: Chemistry Alberta Candelaria MA documented in this encounterCommunity Regional Medical Center02-28-2025 NoteHNO ID: [id number] Author: NISHA SCHULTZ, MICHELE Service: ? Author Type: Registered Nurse Type: Progress Notes Filed: 06/06/2024 13:56 Note Text: Kidney PreTransplant structural test engineer Referral source:Dialysis fax Textile Clothing And Footwear Mechanic: Maria Victoria Scott2-18-25 CT abd/pel:Date done 04-17-24 ECHO/EF:Date 09-21-23/ 56% Kidney Disease Cause: Hx HTN, no biopsy Different from intake: Ezekiel discussed with Dr Lepe. OK to come in as long as can swallow pills, which patient said he [facility]Mount [facility] History of Present illness Narrative* Nisha Schultz, MICHELE - 06/06/2024 1:42 PM EST Kidney PreTransplant structural test engineer Referral source:Dialysis fax Textile Clothing And Footwear Mechanic: Maria Victoria Scott2-18-25 CT abd/pel:Date done 04-17-24 ECHO/EF:Date 09-21-23/ 56% Kidney Disease Cause: Hx HTN, no biopsy Different from intake: Ezekiel discussed with Dr Lepe. OK to come in as long as can swallow pills, which patient said he could documented in this encounterCommunity Regional Medical Center02-28-2025 NoteHNO ID: [id number] Author: KRYSTINA QUINONES LPN Service: ? Author Type: LICENSED NURSE Type: Progress Notes Filed: 06/06/2024 09:02 Note Text: Scan on 06/06/2024 8:40 AM by ProviderDanette PA-C: [facility]ologyMount [facility]02-28-2025 History of Present illness Narrative* Krystina Quinones LPN - 06/06/2024 9:02 AM EST Scan on 06/06/2024 8:40 AM by ProviderDanette PA-C: Hematology documented in this encounterCommunity [facility] Medical Center02-18-2025 Telephone encounter Note * Telephone Encounter - Susan Meredith - 05/27/2024 10:18 AM EST KIDNEY TRANSPLANT REFERRAL (enter above which organ the patient needs; Kidney, Pancreas or Kidney/Pancreas) Is this referral for a Safety Net or HIV Patient? No (Safety Net = Pt needing an additional transplant within 12 months for any organ) Jacob Landa [id number] Spoke with: Patient Referral Source: (Tx Access; Online; Fax; Internal or Self-Referral) Fax BIG DATA ADMIN / PHYSICIAN: MARIA VICTORIA SCOTT (see's at dialysis) Have you ever been evaluated for kidney/pancreas transplant? No Have you had a previous transplant? No Have you had one or both kidneys removed: No OUT OF STATE MEDICAID PATIENTS: Have you been seen at another Transplant Center that was in-network with your Out of State (OOS) Medicaid and denied a Transplant Evaluation? NA Has your PCP sent in a referral for transplant to your (OOS) Medicaid caser? NA If the patient has Medicare A/B as their primary insurance please ask the patient for their secondary insurance coverage. Height: 5'9" Weight: 162 Lbs BMI: 23.9 Have you had weight loss without trying within the last 30 days? No Malnutrition Screening Tool (MST) Weight loss score: 0 Have you been eating poorly in the last week because of a decreased appetite? No- 0 Appetite score: 0 Total MST score (weight loss + appetite scores): 0 Score of 2 or more = referral to registered dietitian for an individual appointment Any history of Smoking/Vaping/Nicotine products: Non-smoker Oxygen use: No Blood Transfusion: Are you willing to accept a blood transfusion if needed? Yes Assistive devices: Cane, fell broke left hip in Feb 2024 Activity Level: Light activity COPD/Emphysema/Other pulmonary problem: No Dialysis: Yes. If yes, date and location: [facility] Days: Dialysis start date: 03/28/2024 Dialysis [facility] 05/26/24 Do you have Diabetes? No Have you had a Kidney Biopsy: No Have you had a Liver Biopsy: No Dx of Cirrhosis? No Dx of Hepatitis? No Hx of ETOH? No Hx of Drug use? No Hx of Psychiatric disorder? No Dx of HIV/AIDS? No Hx of Cancer? Yes, on or about Apr 2019 - Esophageal adenocarcinoma, Treatment: 2/3 of esophagus and 1/3 of stomach removed all at [facility]. Had Radiation and Chemo last treatment approx June or July 2020. Hx of Hypertension? Yes Hx of IA/Heart Attack? No Hx of TIA/CVA or Stroke? No Are you on a blood thinner? Yes If YES which medication are you on? Baby aspirin Have you had a CABG or STENTS? Yes. If yes, date and location: CABG 5x done in 2002 at [facility] Hrt Stents 6x done about 2014 last done 2019 done at [facility] and aorta stent in [facility] Have you ever had a Stress Test? Yes. If yes, date and location: 01/08/2021 (see scanned doc in epicon 01/27/21) done at [facility] Have you ever had an Echo? Yes. If yes, date and location: 09/21/2023 (see epic) Have you ever had a Cardiac Cath? Yes. If yes, date and location: 12/31/2018 CT Abdomen/Pelvis: Yes. If yes, date and location: 04/17/2024 (see epic) Colonoscopy: Yes. If yes, date and location: 06/01/2020 (see epic) Hx of Lupus? No Sickle Cell Trait or Disease: N/A Have you had any prior surgeries? Yes - Partial hip replaced (L) in Feb 2024, Tonsils removed as a child, port in chest uses for dialysis at this time. Do you have a potential living donor? No MyCHART Is the patient signed up for Myert? No-patient doesn't have an email and not computer savvy. If YES - send patient the Kidney/Pancreas New Referral Message. If NO - obtain their email address AND send mychart sign up information: email address: No e-mail address on record - No Email Is the patient okay with having a Virtual Appt: No - no email and not computer savvy. Have records been retrieved from Care Everywhere: Yes. Have records been requested from [facility]? No see epic and C.E. Route the referral to the Kidney Txp tobacco drying machine operator, Nisha Schultz. Susan Meredith [facility]02-[facility] Miscellaneous Notes* Telephone Encounter - Susan Meredith - 05/27/2024 10:18 AM EST KIDNEY TRANSPLANT REFERRAL (enter above which organ the patient needs; Kidney, Pancreas or Kidney/Pancreas) Is this referral for a Safety Net or HIV Patient? No (Safety Net = Pt needing an additional transplant within 12 months for any organ) Jacob Landa [phone] Spoke with: Patient Referral Source: (Tx Access; Online; Fax; Internal or Self-Referral) Fax BIG DATA ADMIN / PHYSICIAN: MARIA VICTORIA SCOTT (see's at dialysis) Have you ever been evaluated for kidney/pancreas transplant? No Have you had a previous transplant? No Have you had one or both kidneys removed: No OUT OF STATE MEDICAID PATIENTS: Have you been seen at another Transplant Center that was in-network with your Out of State (OOS) Medicaid and denied a Transplant Evaluation? NA Has your PCP sent in a referral for transplant to your (O) Medicaid caser? NA If the patient has Medicare A/B as their primary insurance please ask the patient for their secondary insurance coverage. Height: 5'9" Weight: 162 Lbs BMI: 23.9 Have you had weight loss without trying within the last 30 days? No Malnutrition Screening Tool (MST) Weight loss score: 0 Have you been eating poorly in the last week because of a decreased appetite? No- 0 Appetite score: 0 Total MST score (weight loss + appetite scores): 0 Score of 2 or more = referral to registered dietitian for an individual appointment Any history of Smoking/Vaping/Nicotine products: Non-smoker Oxygen use: No Blood Transfusion: Are you willing to accept a blood transfusion if needed? Yes Assistive devices: Cane, fell broke left hip in Feb 2024 Activity Level: Light activity COPD/Emphysema/Other pulmonary problem: No Dialysis: Yes. If yes, date and location: [facility] Days: Dialysis start date: 03/28/2024 Dialysis [facility] 05/26/24 Do you have Diabetes? No Have you had a Kidney Biopsy: No Have you had a Liver Biopsy: No Dx of Cirrhosis? No Dx of Hepatitis? No Hx of ETOH? No Hx of Drug use? No Hx of Psychiatric disorder? No Dx of HIV/AIDS? No Hx of Cancer? Yes, on or about Apr 2019 - Esophageal adenocarcinoma, Treatment: 2/3 of esophagus and 1/3 of stomach removed all at [facility]. Had Radiation and Chemo last treatment approx June or July 2020. Hx of Hypertension? Yes Hx of IA/Heart Attack? No Hx of TIA/CVA or Stroke? No Are you on a blood thinner? Yes If YES which medication are you on? Baby aspirin Have you had a CABG or STENTS? Yes. If yes, date and location: CABG 5x done in 2002 at [facility] Hrt Stents 6x done about 2014 last done 2018 done at [facility] and aorta stent in [facility] Have you ever had a Stress Test? Yes. If yes, date and location: [facility] Have you ever had an Echo? Yes. If yes, date and location: 09/21/2023 (see [facility]) Have you ever had a Cardiac Cath? Yes. If yes, date and location: 12/31/2018 CT Abdomen/Pelvis: Yes. If yes, date and location: 04/17/2024 (see [facility]) Colonoscopy: Yes. If yes, date and location: 06/01/2020 (see [facility]) Hx of Lupus? No Sickle Cell Trait or Disease: N/A Have you had any prior surgeries? Yes - Partial hip replaced (L) in Feb 2024, Tonsils removed as a child, port in chest uses for dialysis at this time. Do you have a potential living donor? No MyCHART Is the patient signed up for PlayLab? No-patient doesn't have an email and not computer savvy. If YES - send patient the Kidney/Pancreas New Referral Message. If NO - obtain their email address AND send Simperiumhart sign up information: email address: No e-mail address on record - No Email Is the patient okay with having a Virtual Appt: No - no email and not computer savvy. Have records been retrieved from Care Everywhere: Yes. Have records been requested from [facility]? No see epic and C.E. Route the referral to the Kidney Txp tobacco drying machine operator, Nisha Schultz. Susan Meredith documented in this encounterCommunity [facility] Center01-30-2025 Telephone encounter Note * Telephone Encounter - Erin Du LPN - 05/08/2024 8:36 AM EST Patient notified and voices understanding. Erin Du LPN [facility]01-30-2025 Miscellaneous Notes* Telephone Encounter - Erin Du LPN - 05/08/2024 8:36 AM EST Patient notified and voices understanding. Erin Du LPN * Telephone Encounter - Richard Jenkins DO - 05/07/2024 5:24 PM EST Can let him know the MRI scan shows no evidence of cancer in his back. Follow-up as scheduled. Richard Jenkins DO documented in this encounterCommunity Regional Medical Center01-29-2025 Telephone encounter Note * Telephone Encounter - Richard Jenkins DO - 05/07/2024 5:24 PM EST Can let him know the MRI scan shows no evidence of cancer in his back. Follow-up as scheduled. Richard Jenkins DO [facility]01-[facility] History of Present illness Narrative* Marilee Bosch RT(R) - 05/07/2024 2:00 PM EST Radiology Service Progress Note DATE OF SERVICE: May 07, 2024 TIME: 2:47 PM PATIENT IDENTITY VERIFICATION COMPLETED USING TWO (2) STANDARD IDENTIFIERS: Name and Date of confirmed by patient verbally. FALL SCREENING: Has the patient had 2 falls in the last year or 1 fall with injury or currently using an Ambulatory Assistive Device (Walker, Cane, Wheelchair, Crutches, etc.)? No PATIENT GENDER DATA: Assigned male at PATIENT RELEVANT IMPLANT DATA REVIEWED: Yes PATIENT PRESENTS WITH AN IMPLANTABLE OR ATTACHED SQL SSIS DEVELOPER: No ALLERGIES: Reviewed and unchanged CONTRAST ALLERGY: NO. EXAM: MRI - CONTRAST TYPE: GROUP II PERIPHERAL IV DATA: Ambulatory: A peripheral IV was started in the Right antecubital site with a Angio cath: 24 gauge. RADIOLOGY DEPARTMENT: MR; Exam(s) Completed: Spine: Thoracic spine SIGNATURE: RT Gigi(R) PATIENT NAME: Jacob Landa DATE: May 07, 2024 TIME: 2:47 PM documented in this encounterCommunity Regional Medical Center01-29-2025 NoteHNO ID: [id number] Author: MARILEE BOSCH RT(R) Service: ? Author Type: Technologist Type: Progress Notes Filed: 05/07/2024 14:48 Note Text: Radiology Service Progress Note DATE OF SERVICE: May 07, 2024 TIME: 2:47 PM PATIENT IDENTITY VERIFICATION COMPLETED USING TWO (2) STANDARD IDENTIFIERS: Name and Date of confirmed by patient verbally. FALL SCREENING: Has the patient had 2 falls in the last year or 1 fall with injury or currently using an Ambulatory Assistive Device (Walker, Cane, Wheelchair, Crutches, etc.)? No PATIENT GENDER DATA: Assigned male at PATIENT RELEVANT IMPLANT DATA REVIEWED: Yes PATIENT PRESENTS WITH AN IMPLANTABLE OR ATTACHED SQL SSIS DEVELOPER: No ALLERGIES: Reviewed and unchanged CONTRAST ALLERGY: NO. EXAM: MRI - CONTRAST TYPE: GROUP II PERIPHERAL IV DATA: Ambulatory: A peripheral IV was started in the Right antecubital site with a Angio cath: 24 gauge. RADIOLOGY DEPARTMENT: MR; Exam(s) Completed: Spine: Thoracic spine SIGNATURE: Marilee Aguero Nuria Bosch, RT(R) PATIENT NAME: Jacob Landa DATE: May 07, 2024 TIME: 2:47 [facility]01-29-2025 NoteHNO ID: [id number] Author: EDWIN MONTES APRN.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 Service: ? Author Type: Nurse Practitioner Type: Progress Notes Filed: 05/07/2024 08:56 Note Text: Subjective HPI HPI Jacob Landa is a 69 year old male who presents today for CC of bilateral hand wound from dog scratch. This started 2 days ago. Has tried nothing for relief. Symptoms are worsened by nothing. Last tetanus 2017. Denies fever. .Patient presents with: dog scratches on hands: X 2 days PAST MEDICAL HISTORY Diagnosis Date Advance directive discussed with patient 02/09/2022 Discussed 02/2022, packets provided AK (actinic keratosis) 09/07/2020 One on the right forearm dorsal, three on the left forearm dorsal and one left side of face hear hair line about eye level. Tx cryo 09/2020 Aortic valve stenosis 07/26/2015 Ascending aorta dilation (HCC) 09/21/2023 09/21/2023: 4.1cm Asthma BPH (benign prostatic hyperplasia) 07/20/2014 Carpal tunnel syndrome of right wrist CKD (chronic kidney disease) stage 4, GFR 15-29 ml/min (HCC) 01/03/2024 On dialysis and seeing Dr. Greenberg. Closed wedge compression fracture of T10 vertebra (HCC) 07/12/2023 Coronary artery disease involving [place] coronary artery without angina pectoris Seeing Dr. Noland DDD (degenerative disc disease), lumbar 11/04/2019 Elevated blood sugar 03/11/2024 Esophageal adenocarcinoma (HCC) 08/09/2020 Essential hypertension, benign GERD (gastroesophageal reflux disease) 07/12/2009 History of kidney stones 07/20/2014 Iron deficiency anemia due to chronic blood loss 05/25/2020 Iron malabsorption 05/25/2020 Kidney stone Kyphosis (acquired) (postural) 07/30/[address] 03/11/2024 DPA: Lacho (step daughter) Malignant 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) 04/15/2020 Medicare annual wellness visit, subsequent 01/13/2021 Medical B eligibilty date 03/09/19 Date of last exam 01/13/2021 Mixed hyperlipidemia MRSA (methicillin resistant Staphylococcus aureus) 12/01/2016 treated with course of Linezolid beginning 10/29/16 Nonrheumatic aortic valve disorder On tube feeding diet 08/14/2020 History: 65 year old male s/p [place] esophagectomy, Pyloromyotomy, Jejunostomy tube placement for esophageal adenocarcinoma -Diet: Isosource 1.5 to 50 cc hour with 100 cc water flushes 8 times per day and Bene protein 3 times per day Removed 11/17/2020 Personal history of colonic polyps 12/27/2009 Rn Wound's nodules 03/30/2023 Will try pamelor Pleural effusion 03/11/2021 Stable in f/u studies. Pressure ulcer of unspecified buttock, stage 2 (HCC) 01/03/2024 Bilaterally. 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 4 07/23/2017 S/P TAVR (transcatheter aortic valve replacement) 04/30/2024 Needs dental prophylaxis. 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 Due to repeat anemia 01/01/2024 felt Eliquis could be stopped since risk did not out way benefit. Upper GI bleed 05/25/2020 PAST SURGICAL HISTORY Procedure Laterality Date ADENOIDECTOMY PRIMARY Adenoidectomy AORTIC VALVE RECONSTRUCTION 03/03/2019 s/p TAVR BYP OTH/THN VEIN CAROTID-SUBCLAVIAN 2003 Bypass graft carotid subcl COLONOSCOPY FLX DX W/COLLJ SPEC WHEN PFRMD 02/28/2013 COLONOSCOPY FLX DX W/COLLJ SPEC WHEN PFRMD 12/06/2016 repeat in 5 yrs COLONOSCOPY SCRN NOT HIGH RISK 06/01/2020 COLONOSCOPY W/BIOPSY SINGLE/MULTIPLE 02/22/2007 Diminutive polyp distal [id number] ECHO 01/08/2021 EGD 04/15/2020 HEART CATHETERIZATION 12/2018 with 2 stents IMPLANT MESH OPN HERNIA RPR/DEBRIDEMENT CLOSURE 03/06/2007 LAPAROSCOPY SURG RPR INITIAL INGUINAL HERNIA 03/06/2007 umbilical NM CARDIAC STRESS TEST 01/08/2021 PAST SURGICAL HISTORY OF Right 2016 incision and drainage right axillary abscess REPAIR ANORECTAL FISTULA W/PLUG 12/06/2016 REPAIR FIRST ABDOMINAL WALL HERNIA 03/06/2007 right STENT - CORONARY 2014 x3 AND x2 12/2018 TONSILLECTOMY PRIMARY/SECONDARY Tonsillectomy TOT/SUB ESOPHAGECTOMY W/THORACOT 08/09/2020 [facility] esophagectomy, jejunostomy tube placement TOTAL HIP REPLACEMENT Left 02/15/2024 ALLERGIES Seasonal Allergies MEDICATIONS OLANZapine (ZYPREXA) 2.5 mg tablet Take 1 tablet by mouth daily at bedtime. atorvastatin (LIPITOR) 80 mg tablet Take 1 tablet by mouth daily at bedtime. metoprolol tartrate, short acting, (LOPRESSOR) 25 mg tablet Take 1 tablet by mouth two times a day. fluticasone (FLONASE) 50 mcg/actuation nasal spray Use 1 Hutchins in each nostril once daily. ferrous sulfate (SLOW FE) 137 mg (45 mg iron) TbER Take 1 tablet by mouth every other day. ascorbic acid, vitamin C, (VITAMIN C) 500 mg tablet Take 1 tablet by mouth every other day. ondansetron orally disintegrating (ZOFRAN ODT) 4 mg disintegrating tablet Take 1 tablet by mouth every 6 hours as needed for nausea/vomiting. nitroglycerin subling (more content not included)...[facility] 05-07-2024 History of Present illness Narrative* Edwin Montes APRN.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 - 05/07/2024 8:53 AM EST Images from the original note were not included. Subjective HPI HPI Jacob Landa is a 69 year old male who presents today for CC of bilateral hand wound from dog scratch. This started 2 days ago. Has tried nothing for relief. Symptoms are worsened by nothing. Last tetanus 2017. Denies fever. .Patient presents with: dog scratches on hands: X 2 days PAST MEDICAL HISTORY Diagnosis Date Advance directive discussed with patient 02/09/2022 Discussed 02/2022, packets provided AK (actinic keratosis) 09/07/2020 One on the right forearm dorsal, three on the left forearm dorsal and one left side of face hear hair line about eye level. Tx cryo 09/2020 Aortic valve stenosis 07/26/2015 Ascending aorta dilation (HCC) 09/21/2023 09/21/2023: 4.1cm Asthma BPH (benign prostatic hyperplasia) 07/20/2014 Carpal tunnel syndrome of right wrist CKD (chronic kidney disease) stage 4, GFR 15-29 ml/min ([facility]) 01/03/2024 On dialysis and seeing Dr. Greenberg. Closed wedge compression fracture of T10 vertebra (HCC) 07/12/2023 Coronary artery disease involving [place] coronary artery without angina pectoris Seeing Dr. Noland DDD (degenerative disc disease), lumbar 11/04/2019 Elevated blood sugar 03/11/2024 Esophageal adenocarcinoma ([facility]) 08/09/2020 Essential hypertension, benign GERD (gastroesophageal reflux disease) 07/12/2009 History of kidney stones 07/20/2014 Iron deficiency anemia due to chronic blood loss 05/25/2020 Iron malabsorption 05/25/2020 Kidney stone Kyphosis (acquired) (postural) 07/30/[address] 03/11/2024 DPA: Lacho (step daughter) Malignant neoplasm of lower third of esophagus ([facility]) 04/15/2020 Medicare annual wellness visit, subsequent 01/13/2021 Medical B eligibilty date 03/09/19 Date of last exam 01/13/2021 Mixed hyperlipidemia MRSA (methicillin resistant Staphylococcus aureus) 12/01/2016 treated with course of Linezolid beginning 10/29/16 Nonrheumatic aortic valve disorder On tube feeding diet 08/14/2020 History: 65 year old male s/p [place] esophagectomy, Pyloromyotomy, Jejunostomy tube placement for esophageal adenocarcinoma -Diet: Isosource 1.5 to 50 cc hour with 100 cc water flushes 8 times per day and Bene protein 3 times per day Removed 11/17/2020 Personal history of colonic polyps 12/27/2009 Rn Wound's nodules 03/30/2023 Will try pamelor Pleural effusion 03/11/2021 Stable in f/u studies. Pressure ulcer of unspecified buttock, stage 2 ([facility]) 01/03/2024 Bilaterally. 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 4 07/23/2017 S/P TAVR (transcatheter aortic valve replacement) 04/30/2024 Needs dental prophylaxis. 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 Due to repeat anemia 01/01/2024felt Eliquis could be stopped since risk did not out way benefit. Upper GI bleed 05/25/2020 PAST SURGICAL HISTORY Procedure Laterality Date ADENOIDECTOMY PRIMARY <AGE 11 Adenoidectomy AORTIC VALVE RECONSTRUCTION 03/03/2019 s/p TAVR BYP OTH/THN VEIN CAROTID-SUBCLAVIAN 2003 Bypass graft carotid subcl COLONOSCOPY FLX DX W/COLLJ SPEC WHEN PFRMD 02/28/2013 COLONOSCOPY FLX DX W/COLLJ SPEC WHEN PFRMD 12/06/2016 repeat in 5 yrs COLONOSCOPY SCRN NOT HIGH RISK 06/01/2020 COLONOSCOPY W/BIOPSY SINGLE/MULTIPLE 02/22/2007 Diminutive polyp distal [id number] ECHO 01/08/2021 EGD 04/15/2020 HEART CATHETERIZATION 12/2018 with 2 stents IMPLANT MESH OPN HERNIA RPR/DEBRIDEMENT CLOSURE 03/06/2007 LAPAROSCOPY SURG RPR INITIAL INGUINAL HERNIA 03/06/2007 umbilical NM CARDIAC STRESS TEST 01/08/2021 PAST SURGICAL HISTORY OF Right 2016 incision and drainage right axillary abscess REPAIR ANORECTAL FISTULA W/PLUG 12/06/2016 REPAIR FIRST ABDOMINAL WALL HERNIA 03/06/2007 right STENT - CORONARY 2014 x3 & x2 12/2018 TONSILLECTOMY PRIMARY/SECONDARY <AGE 11 Tonsillectomy TOT/SUB ESOPHAGECTOMY W/THORACOT 08/09/2020 [facility] esophagectomy, jejunostomy tube placement TOTAL HIP REPLACEMENT Left 02/15/2024 ALLERGIES Seasonal Allergies MEDICATIONS OLANZapine (ZYPREXA) 2.5 mg tablet Take 1 tablet by mouth daily at bedtime. atorvastatin (LIPITOR) 80 mg tablet Take 1 tablet by mouth daily at bedtime. metoprolol tartrate, short acting, (LOPRESSOR) 25 mg tablet Take 1 tablet by mouth two times a day. fluticasone (FLONASE) 50 mcg/actuation nasal spray Use 1 Hutchins in each nostril once daily. ferrous sulfate (SLOW FE) 137 mg (45 mg iron) TbER Take 1 tablet by mouth every other day. ascorbic acid, vitamin C, (VITAMIN C) 500 mg tablet Take 1 tablet by mouth every other day. ondansetron orally disintegrating (ZOFRAN ODT) 4 mg disintegrating tablet Take 1 tablet by mouth every 6 hours as needed for nausea/vomiting. nitroglycerin sublingual (NITROQUICK) 0.4 mg SL tablet Dissolve 1 tablet under the tongue every 5 minutes as needed for chest pain. enteric contrast (will be provided with radiology test) For CT ABD/PEL W IVCON Routine order Administer, As Directed One Time Only, via Oral, Rectal, both Oral and Rectal, Enteric Tube, Stoma or Indwelling Catheter, Enteric Contrast as designated per enteric contrast guidelines pantoprazole DR (PROTONIX) 40 mg tablet Take 1 tablet by mouth two times a day. acetaminophen (TYLENOL) 500 mg tablet Take 500 mg by mouth every 6 hours as needed. doxycycline monohydrate 100 mg tablet Take 1 tablet by mouth two times a day for 7 days. mupirocin (BACTROBAN) 2 % ointment Apply to affected area three times a day for 10 days. ezetimibe (ZETIA) 10 mg tablet Take 1 tablet by mouth once daily. (Patient not taking: Reported on 03/11/2024) FAMILY HISTORY Problem Relation Age of Onset Cancer Mother OVARIAN AND THYROID CA Breast Cancer Mother Ischemic Heart Disease Father from Cerebral Hemmorrhage age 50 other (mva) Brother Cancer Sister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 Progress Note PATIENT NAME: Jacob Landa DATE OF SERVICE: April 17, 2024 TIME: 3:51 PM PATIENT IDENTITY VERIFICATION COMPLETED USING TWO (2) IDENTIFIERS: Name and Date of confirmed by patient verbally. FALL SCREENING: Has the patient had 2 falls in the last year or 1 fall with injury or currently using an Ambulatory Assistive Device (Walker, Cane, Wheelchair, Crutches, etc.)? No PATIENT GENDER DATA: Male PATIENT RELEVANT IMPLANT DATA REVIEWED: Yes PATIENT PRESENTS WITH AN IMPLANTABLE OR ATTACHED SQL SSIS DEVELOPER: No RADIOLOGY DEPARTMENT: CT; Exam(s) Completed: Chest Abdomen Pelvis PERIPHERAL IV DATA: Not applicable SIGNED BY: RT Geno(R) April 17, 2024 3:51 [facility]12-03-2024 Instructions* Patient Instructions* Yaw Singh MD - 03/11/2024 10:16 AM EST Screening schedule The following prevention plan is recommended: Anxiety Screening Never done Advance Directive Discussion due on 04/09/2023 Covid-19 Vaccine() Never done WHAT YOU CAN DO TO PREVENT FALLS Many falls can be prevented. By making some changes, you can lower your chances of falling. Four things YOU can do to prevent falls for you* and your caregiver 1. Begin a regular exercise program Exercise is one of the most important ways to lower your chances of falling. It makes you stronger and helps you feel better. Exercises that improve balance and coordination (like Marquise Chi) are the most helpful. Lack of exercise leads to weakness and increases your chances of falling. Ask your doctor or health care provider about the best type of exercise program for you. 2. Have your health care provider review your medicines Have your doctor or pharmacist review all the medicines you take, even [id number]-mot-[id number] medicines. As you get older, the way medicines work in your body can change. Some medicines, or combinations of medicines, can make you sleepy or dizzy andcan cause you to fall. 3. Have your vision checked Have your eyes checked by an eye doctor at least once a year. You may be wearing the wrong glasses or have a condition like glaucoma or cataracts that limits your vision. Poor vision can increase your chances of falling. 4. Make your home safer About half of all falls happen at home. To make your home safer: Remove things you can trip over (like papers, books, clothes, and shoes) from stairs and places where you walk. Remove small throw rugs or use double-sided tape to keep the rugs from slipping. Keep items you use often in cabinets you can reach easily without using a step stool. Have grab bars put in next to your toilet and in the tub or shower. Use non-slip mats in the bathtub and on shower floors. Improve the lighting in your home. As you get older, you need brighter lights to see well. Hang light-weight curtains or shades to reduce glare. Have handrails and lights put in on all staircases. Wear shoes both inside and outside the house. Avoid going barefoot or wearing slippers. For more information, contact: Centers for Disease Control and Prevention www.cdc.gov/injury * This information may not apply if you have certain medical conditions. documented in this encounterCommunity [facility] Center12-03-2024 History of Present illness Narrative* Yaw Singh MD - 03/11/2024 9:40 AM EST Images from the original note were not included. Jacob Landa is a 68 year old male here for a Medicare wellness visit. Medicare Health Risk Assessment General Health Very good Exercise: Minutes/Day 0 min Exercise: Days/Week 0 days Alcohol: Daily Use Never Alcohol: Drinks/Day Patient does not drink Alcohol: 6 or more drinks Never Feel off balance No Concerns: Teeth/Dentures No Concerns: Sexual function No Troubled by feelings None of the above Frequency: Eating healthy diet Nearly every day ADLs requiring help Driving Safety precautions in home/vehicle No Smoke, vape, chews tobacco No Difficulty hearing No Difficulty seeing No Current Providers Specialists: I have reviewed specialist-related care of the patient in the medical record. Current care team: Patient Care Team: Yaw Singh MD as PCP - General (Family Medicine) Madan Roy MD as Physician (Radiation Oncology) Luly Gaffney, RN as Specialty Airport Utility Worker (Oncology) Richard Jenkins DO as Referring (Hematology/Oncology) Haroldo Noland MD (Cardiology) Sena Seymour, RN (Inactive) as Sueding Machine Tender Friend, Bud Paul DO (Gastroenterology) Helen Gibson, Maegan Ferguson, RN as Primary Care Residential Support Specialist Medical/Family history review Reviewed and updated problem list, medical/surgical/family/social history, medications, and allergies. Opioid use review Opioid Medications (last 90 days) 01/03/2024 Opioid Medications hydrocodone/acetaminophen 1 tablet q 6 H PRN Given at [facility] ER 09/10/23 ORAL (2.5- 325 mg tab) -Discontinued (Therapy comp) Patient not taking as of 01/03/2024 11:04 AM Details Patient-reported medication Patient not taking Depression Screening Cognitive screening Score: 4 Cognitive screening reviewed and No further action needed (score 3-5). Functional Observation Was the patient's Timed Up & Go test unsteady or >= 12 seconds? S/p left hip replacement andstill using a walker. Advance Care Planning Surrogate decision maker and/or advance care plan documented Measurements BP 120/76 Pulse 94 Resp 16 Ht 177.8 cm (5' 10") Wt 71.2 kg (157 lb) BMI 22.53 kg/m Vision Screening: Follows with optometry/ophthalmology Assessment/Plan Medicare annual wellness visit, subsequent (Z00.00) - Counseled on healthy diet and regular exercise - Fall avoidance information provided - Personalized prevention plan provided See Below Chief Complaint Patient presents with: Medicare Wellness Exam HPI Jacob Landa is a 68 year old male who presents here today for Chronic Medical Conditions. and Medicare Annual Visit. Patient with hx of CAD, hyperlipidemia, aortic valve stenosis, asthma, GERD, esophageal cancer, DDD, depression, BPH and those as below. Patient is status post left HIP replacement 02/15/2024. Doing well and making improvement Continues to follow with Cardio, renal, Heme/Onc. No new issues or concerns. Past medical history, appointments, medications, allergies reviewed. Previous Medical History PAST MEDICAL HISTORY Diagnosis Date Advance directive discussed with patient 02/09/2022 Discussed 02/2022, packets provided AK (actinic keratosis) 09/07/2020 One on the right forearm dorsal, three on the left forearm dorsal and one left side of face hear hair line about eye level. Tx cryo 09/2020 Aortic valve stenosis 07/26/2015 Ascending aorta dilation (HCC) 09/21/2023 09/21/2023: 4.1cm Asthma BPH (benign prostatic hyperplasia) 07/20/2014 Carpal tunnel syndrome of right wrist CKD (chronic kidney disease) stage 4, GFR 15-29 ml/min (HCC) 01/03/2024 On dialysis and seeing Dr. Greenberg. Closed wedge compression fracture of T10 vertebra (HCC) 07/12/2023 Coronary artery disease involving [place] coronary artery without angina pectoris Seeing Dr. Noland DDD (degenerative disc disease), lumbar 11/04/2019 Esophageal adenocarcinoma (HCC) 08/09/2020 Essential hypertension, benign GERD (gastroesophageal reflux disease) 07/12/2009 History of kidney stones 07/20/2014 Iron deficiency anemia due to chronic blood loss 05/25/2020 Iron malabsorption 05/25/2020 Kidney stone Kyphosis (acquired) (postural) 07/30/2023 Malignant 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) 04/15/2020 Medicare annual wellness visit, subsequent 01/13/2021 Medical B eligibilty date 03/09/19 Date of last exam 01/13/2021 Mixed hyperlipidemia MRSA (methicillin resistant Staphylococcus aureus) 12/01/2016 treated with course of Linezolid beginning 10/29/16 Nonrheumatic aortic valve disorder On tube feeding diet 08/14/2020 History: 65 year old male s/p [place] esophagectomy, Pyloromyotomy, Jejunostomy tube placement for esophageal adenocarcinoma -Diet: Isosource 1.5 to 50 cc hour with 100 cc water flushes 8 times per day and Bene protein 3 times per day Removed 11/17/2020 Personal history of colonic polyps 12/27/2009 Rn Wound's nodules 03/30/2023 Will try pamelor Pleural effusion 03/11/2021 Stable in f/u studies. 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 4 07/23/2017 Situational depression 08/2014 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 01/03/2024 IJ line 10/2023: CT around time showed no PE's or clots in the heart. Due to repeat anemia 01/01/2024felt Eliquis could be stopped since risk did not out way benefit. Upper GI bleed 05/25/2020 Previous Surgical History PAST SURGICAL HISTORY Procedure Laterality Date ADENOIDECTOMY PRIMARY <AGE 11 Adenoidectomy AORTIC VALVE RECONSTRUCTION 03/03/2019 s/p TAVR BYP OTH/THN VEIN CAROTID-SUBCLAVIAN 2003 Bypass graft carotid subcl COLONOSCOPY FLX DX W/COLLJ SPEC WHEN PFRMD 02/28/2013 COLONOSCOPY FLX DX W/COLLJ SPEC WHEN PFRMD 12/06/2016 repeat in 5 yrs COLONOSCOPY SCRN NOT HIGH RISK 06/01/2020 COLONOSCOPY W/BIOPSY SINGLE/MULTIPLE 02/22/2007 Diminutive polyp distal [id number] ECHO 01/08/2021 EGD 04/15/2020 HEART CATHETERIZATION 12/2018 with 2 stents IMPLANT MESH OPN HERNIA RPR/DEBRIDEMENT CLOSURE 03/06/2007 LAPAROSCOPY SURG RPR INITIAL INGUINAL HERNIA 03/06/2007 umbilical NM CARDIAC STRESS TEST 01/08/2021 PAST SURGICAL HISTORY OF Right 2016 incision and drainage right axillary abscess REPAIR ANORECTAL FISTULA W/PLUG 12/06/2016 REPAIR FIRST ABDOMINAL WALL HERNIA 03/06/2007 right STENT - CORONARY 2014 x3 & x2 12/2018 TONSILLECTOMY PRIMARY/SECONDARY <AGE 11 Tonsillectomy TOT/SUB ESOPHAGECTOMY W/THORACOT 08/09/2020 [place] esophagectomy, jejunostomy tube placement Family History FAMILY HISTORY Problem Relation Age of Onset Cancer Mother OVARIAN AND THYROID CA Breast Cancer Mother Ischemic Heart Disease Father from Cerebral Hemmorrhage age 50 other (mva) Brother Cancer Sister Bone Marrow CA at 59 y/o Ischemic Heart Disease Sister 49 at 57y/o No Known Problems Sister Thyroid Sister Cancer Paternal Aunt cancer of colon other (unkown) Brother Patient Allergies ALLERGIES Allergen Reactions Seasonal Allergies Other: See Comments Sneezing, watery eyes, runny nose. Current Medications Current Outpatient Medications on File Prior to Visit Medication Sig fluticasone (FLONASE) 50 mcg/actuation nasal spray Use 1 Hutchins in each nostril once daily. OLANZapine (ZYPREXA) 2.5 mg tablet Take 1 tablet by mouth daily at bedtime. ferrous sulfate (SLOW FE) 137 mg (45 mg iron) TbER Take 1 tablet by mouth every other day. ascorbic acid, vitamin C, (VITAMIN C) 500 mg tablet Take 1 tablet by mouth every other day. melatonin 3 mg tablet Take 3 mg by mouth daily at bedtime. ondansetron orally disintegrating (ZOFRAN ODT) 4 mg disintegrating tablet Take 1 tablet by mouth every 6 hours as needed for nausea/vomiting. metoprolol tartrate, short acting, (LOPRESSOR) 25 mg tablet Take 1 tablet by mouth two times a day. ezetimibe (ZETIA) 10 mg tablet Take 1 tablet by mouth once daily. atorvastatin (LIPITOR) 80 mg tablet Take 1 tablet by mouth daily at bedtime. nitroglycerin sublingual (NITROQUICK) 0.4 mg SL tablet Dissolve 1 tablet under the tongue every 5 minutes as needed for chest pain. enteric contrast (will be provided with radiology test) For CT ABD/PEL W IVCON Routine order Administer, As Directed One Time Only, via Oral, Rectal, both Oral and Rectal, Enteric Tube, Stoma or Indwelling Catheter, Enteric Contrast as designated per enteric contrast guidelines nystatin (MYCOSTATIN) cream Apply to affected area two times a day. pantoprazole DR (PROTONIX) 40 mg tablet Take 1 tablet by mouth two times a day. acetaminophen (TYLENOL) 500 mg tablet Take 500 mg by mouth every 6 hours as needed. No current facility-administered medications on file prior to visit. Social History Social History Tobacco Use Smoking status: Never Smokeless tobacco: Never Vaping Use Vaping status: Never Used Substance Use Topics Alcohol use: Not Currently Comment: none Drug use: No Review of Symptoms REVIEW OF SYSTEMS GENERAL: No weight loss, malaise or fevers HEENT: Negative for frequent or significant headaches, No changes in hearing or vision, no nose bleeds or other nasal problems. Slight clear drainage for about a month. NECK: Negative for lumps, goiter, pain and significant neck swelling RESPIRATORY: Negative for cough, hemoptysis, wheezing, COPD, dyspnea or shortness of breath CARDIOVASCULAR: Negative for chest pain, leg swelling, hypertension, CHF or palpitations GI: No nausea, vomiting, or diarrhea, No heartburn or reflux symptoms, and no blood : No history of dysuria, frequency or blood MUSCULOSKELETAL: Negative for for new or changes in his typical joint pain or swelling, back pain or muscle pain SKIN: Negative for lesions, rash, and itching PSYCH: Negative for, mood disorder and recent psychosocial stressors. Still not sleeping well. Doesnap often during the day with not being very active. HEMATOLOGY/LYMPHOLOGY: Negative for prolonged bleeding, bruising easily or swollen nodes ENDOCRINE: Negative for heat intolerance, polyuria, and goiter. Some increased thirst and cold intolerance. NEURO: No history of headaches, syncope, paralysis, seizures or tremors EXAM: BP 120/76 Pulse 94 Resp 16 Ht 177.8 cm (5' 10") Wt 71.2 kg (157 lb) BMI 22.53 kg/m Last 5 Encounter Wt Readings: Date: Wt: 03/11/2024 71.2 kg (157 lb) 01/31/2024 70.3 kg (155 lb) 01/17/2024 72.1 kg (159 lb) 01/15/2024 72.1 kg (159 lb) 01/03/2024 77.7 kg (171 lb 6.4 oz) General Appearance: Well appearing, alert, in no acute distress, well-hydrated, well nourished.. Skin: Skin color, texture, turgor normal, no suspicious rashes or lesions. No further skin breakdown on the buttocks. Head: Normocephalic, no masses, lesions, tenderness or abnormalities. Eyes: Anicteric sclera. Pupils are equally round and reactive to light. Extraocular movements are intact. . Ears: External ears, TM's normal, canals clear. Nose/Sinuses: Nares normal, septum midline, mucosa normal, no drainage or sinus tenderness. Oropharynx: Lips, mucosa, and tongue normal, teeth and gums normal, oropharynx normal. Lungs: Lungs clear to auscultation. No wheezing, rhonchi, rales.. Heart: RRR without murmur, gallop, or rubs. No ectopy. Abdomen: Normal abdominal exam, Abdomen soft, non-tender. Bowel sounds normal. No masses, organomegaly. Extremities: No deformities, edema, skin discoloration, Good capillary refill. . Musculoskeletal: Muscular strength intact, No joint swelling, deformity, or tenderness. Peripheral Pulses: Normal. Neurologic: Gait normal. Reflexes normal and symmetric. Sensation to light touch and crainal nerves2-12 intact.. Genitalia: Normal, Penis normal. No urethral discharge. Scrotum normal to palpation. No hernia.. Rectal: Normal exam. Prostate slightly enlarged with smooth firm capsule. Health Maintenance List Anxiety Screening Never done Advance Directive Discussion due on 04/09/2023 Covid-19 Vaccine( season) Never done RSV Vaccine(1 - Risk 60-74 years 1-dose series) due on 03/30/2024 Shingrix Vaccine(1 of 2) due on 03/30/2024 LDL Cholesterol due on 10/04/2024 Serum Creatinine due on 10/04/2024 Annual PCP Team Chronic Disease Visit due on 01/16/2025 BP Controlled (<130/80) due on 01/30/2025 Colorectal Cancer Screening due on 06/01/2025 Diabetes Screening due on 10/04/2026 DTaP,Tdap,Td Vaccine(4 - Td or Tdap) due on 01/29/2028 Lipid Screening due on 10/04/2028 Spirometry Completed Influenza Vaccine Completed Hepatitis C Screening Completed Pneumococcal Vaccine: 65+ Completed HPV Vaccine Aged Out Data reviewed Latest Ref Rng 01/15/2024 WBC 3.70 - 11.00 k/uL 6.38 RBC 4.20 - 6.00 m/uL 3.51 (L) Hemoglobin 13.0 - 17.0 g/dL 9.5 (L) Hematocrit 39.0 - 51.0 % 31.4 (L) MCV 80.0 - 100.0 fL 89.5 MCH 26.0 - 34.0 pg 27.1 MCHC 30.5 - 36.0 g/dL 30.3 (L) RDW-CV 11.5 - 15.0 % 19.7 (H) Platelet Count 150 - 400 k/uL 188 MPV 9.0 - 12.7 fL 9.7 Neut% % 78.2 Abs Neut (ANC) 1.45 - 7.50 k/uL 4.98 Lymph% % 11.1 Abs Lymph 1.00 - 4.00 k/uL 0.71 (L) [place]% % 8.3 Abs [place] <0.87 k/uL 0.53 Eosin% % 0.9 Abs Eosin <0.46 k/uL 0.06 Baso% % 0.6 Abs Baso <0.11 k/uL 0.04 Immature Gran % % 0.9 IMMATURE GRANS (ABS) <0.10 k/uL 0.06 NRBC /100 WBC 0.5 Absolute nRBC <0.01 k/uL 0.03 (H) Platelet Estimate Adequate Red Cell Morph Reviewed: see results of individual morphologies Polychromasia Slight Anisocytosis Present Ovalocytes Few RBC Fragments None Seen Few ! DTYPE Auto Iron 41 - 186 ug/dL 45 TIBC 232 - 386 ug/dL 161 (L) Transferrin Saturation 15.0 - 57.0 % 28.0 Vitamin B12 232 - 1,245 pg/mL 808 Folate >4.7 ng/mL 13.3 A/P ASSESSMENT/PLAN: 1. Medicare annual wellness visit, subsequent - ICD9: V70.0, ICD10: Z00.00 (primary diagnosis) - Counseled on healthy diet and regular exercise - Follow up for annual exam in one year 2. Essential hypertension, benign - ICD9: 401.1, ICD10: I10 - Controlled - Continue current medications - Recommend home blood pressure monitoring, to bring results to next visit - Encouraged sodium restriction, DASH or Mediterranean diet - Recommend regular aerobic exercise - LIPID PANEL, NONFASTING - COMPREHENSIVE METABOLIC PANEL 3. Mixed hyperlipidemia - ICD9: 272.2, ICD10: E78.2 - Control undetermined, due for labs - Continue current medications - Counseled on healthy diet and regular exercise Check - LIPID PANEL, NONFASTING - COMPREHENSIVE METABOLIC PANEL If LDL above 70 will restart Zetia. 4. Coronary artery disease involving [place] coronary artery of [place] heart without angina pectoris- ICD9: 414.01, ICD10: I25.10 - clinically stable and follows with cardio. 5. Aortic valve stenosis, etiology of cardiac valve disease unspecified - ICD9: 424.1, ICD10: I35.0 - as per #4 6. Ascending aorta dilation (HCC) - ICD9: 447.71, ICD10: I77.810 - as per #4 7. Uncomplicated asthma, unspecified asthma severity, unspecified whether persistent - ICD9: 493.90, ICD10: J45.909 - stable no need for inhaler. 8. CKD (chronic kidney disease) stage 4, GFR 15-29 ml/min (HCC) - ICD9: 585.4, ICD10: N18.4 On dialysis and follows with renal. - COMPREHENSIVE METABOLIC PANEL 9. Gastroesophageal reflux disease, unspecified whether esophagitis present - ICD9: 530.81, ICD10: K21.9 - Continue treatment with Protonix 40 mg QD - MAGNESIUM 10. Iron deficiency anemia due to chronic blood loss - ICD9: 280.0, ICD10: D50.0 - on iron and managed per Hematology. 11. Situational depression - ICD9: 309.0, ICD10: F43.21 - stable and improved. Not needing meds. 12. Esophageal adenocarcinoma (HCC) - ICD9: 150.9, ICD10: C15.9 - follows with hematology/oncology 13. Malignant 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) - ICD9: 150.5, ICD10: C15.5 - as per #12 14. Primary insomnia - ICD9: 307.42, ICD10: F51.01 - stable will monitor off meds for now. 15. Closed wedge compression fracture of T10 vertebra with routine healing, subsequent encounter - ICD9: V54.17, ICD10: S22.070D - stable no active issues. 16. Pressure injury of buttock, stage 2, unspecified laterality (HCC) - ICD9: 707.05, 707.22, ICD10: L89.302 - resolved. 17. Elevated blood sugar - ICD9: 790.29, ICD10: R73.9 Check - HEMOGLOBIN A1C 18. Cold intolerance - ICD9: 780.99, ICD10: R68.89 Check - THYROID STIMULATING HORMONE 19. Advance directive discussed with patient - ICD9: V65.49, ICD10: Z71.89 - patient to bring in packets. 20. Encounter for screening examination for other mental health and behavioral disorders - ICD9: V79.8, ICD10: Z13.39 - ANXIETY SCREENING 21. Prostate disorder - ICD9: 602.9, ICD10: N42.9 Check - PROSTATE-SPECIFIC ANTIGEN DIAGNOSTIC 22. Medication management - ICD9: V58.69, ICD10: Z79.899 Check - MAGNESIUM Requested Prescriptions Signed Prescriptions Disp Refills atorvastatin (LIPITOR) 80 mg tablet 90 tablet 1 Sig: Take 1 tablet by mouth daily at bedtime. metoprolol tartrate, short acting, (LOPRESSOR) 25 mg tablet 180 tablet 1 Sig: Take 1 tablet by mouth two times a day. F/u 6 months routine. I spent a total of 40 minutes on the date of the service which included preparing to see the patient, [id number] patient care, completing clinical documentation, performing a medically appropriate examination, counseling and educating the patient/family/caregiver and ordering medications, tests, or procedures. Yaw Singh MD documented in this encounterCommunity [facility]12-[facility]24 NoteHNO ID: [id number] Author: YAW SINGH MD Service: ? Author Type: Physician Type: Progress Notes Filed: 03/12/2024 12:56 Note Text: Jacob Landa is a 68 year old male here for a Medicare wellness visit. Medicare Health Risk Assessment General Health Very good Exercise: Minutes/Day 0 min Exercise: Days/Week 0 days Alcohol: Daily Use Never Alcohol: Drinks/Day Patient does not drink Alcohol: 6 or more drinks Never Feel off balance No Concerns: Teeth/Dentures No Concerns: Sexual function No Troubled by feelings None of the above Frequency: Eating healthy diet Nearly every day ADLs requiring help Driving Safety precautions in home/vehicle No Smoke, vape, chews tobacco No Difficulty hearing No Difficulty seeing No Current Providers Specialists: I have reviewed specialist-related care of the patient in the medical record. Current care team: Patient Care Team: Yaw Singh MD as PCP - General (Family Medicine) Madan Roy MD as Physician (Radiation Oncology) Luly Gaffney RN as Specialty Airport Utility Worker (Oncology) Richard Jenkins DO as Referring (Hematology/Oncology) Haroldo Noland MD (Cardiology) Sena Seymour RN (Inactive) as Sueding Machine Tender Kiran, Bud Paul DO (Gastroenterology) Helen Gibson Judith Marie, MICHELE as Primary Care Residential Support Specialist Medical/Family history review Reviewed and updated problem list, medical/surgical/family/social history, medications, and allergies. Opioid use review Opioid Medications (last 90 days) 01/03/2024 Opioid Medications hydrocodone/acetaminophen 1 tablet q 6 H PRN Given at [facility] ER 09/10/23 ORAL (2.5-325 mg tab) -Discontinued (Therapy comp) Patient not taking as of 01/03/2024 11:04 AM Details Patient-reported medication Patient not taking Depression Screening Cognitive screening Score: 4 Cognitive screening reviewed and No further action needed (score 3-5). Functional Observation Was the patient's Timed Up AND Go test unsteady or >= 12 seconds? S/p left hip replacement and still using a walker. Advance Care Planning Surrogate decision maker and/or advance care plan documented Measurements BP 120/76 Pulse 94 Resp 16 Ht 177.8 cm (5' 10") Wt 71.2 kg (157 lb) BMI 22.53 kg/m? Vision Screening: Follows with optometry/ophthalmology Assessment/Plan Medicare annual wellness visit, subsequent (Z00.00) - Counseled on healthy diet and regular exercise - Fall avoidance information provided - Personalized prevention plan provided See Below Chief Complaint Patient presents with: Medicare Wellness Exam HPI Jacob Landa is a 68 year old male who presents here today for Chronic Medical Conditions. and Medicare Annual Visit. Patient with hx of CAD, hyperlipidemia, aortic valve stenosis, asthma, GERD, esophageal cancer, DDD, depression, BPH and those as below. Patient is status post left HIP replacement 02/15/2024. Doing well and making improvement Continues to follow with Cardio, renal, Heme/Onc. No new issues or concerns. Past medical history, appointments, medications, allergies reviewed. Previous Medical History PAST MEDICAL HISTORY Diagnosis Date Advance directive discussed with patient 02/09/2022 Discussed 02/2022, packets provided AK (actinic keratosis) 09/07/2020 One on the right forearm dorsal, three on the left forearm dorsal and one left side of face hear hair line about eye level. Tx cryo 09/2020 Aortic valve stenosis 07/26/2015 Ascending aorta dilation (HCC) 09/21/2023 09/21/2023: 4.1cm Asthma BPH (benign prostatic hyperplasia) 07/20/2014 Carpal tunnel syndrome of right wrist CKD (chronic kidney disease) stage 4, GFR 15-29 ml/min (HCC) 01/03/2024 On dialysis and seeing Dr. Greenberg. Closed wedge compression fracture of T10 vertebra (HCC) 07/12/2023 Coronary artery disease involving [place] coronary artery without angina pectoris Seeing Dr. Noland DDD (degenerative disc disease), lumbar 11/04/2019 Esophageal adenocarcinoma (HCC) 08/09/2020 Essential hypertension, benign GERD (gastroesophageal reflux disease) 07/12/2009 History of kidney stones 07/20/2014 Iron deficiency anemia due to chronic blood loss 05/25/2020 Iron malabsorption 05/25/2020 Kidney stone Kyphosis (acquired) (postural) 07/30/2023 Malignant 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) 04/15/2020 Medicare annual wellness visit, subsequent 01/13/2021 Medical B eligibilty date 03/09/19 Date of last exam 01/13/2021 Mixed hyperlipidemia MRSA (methicillin resistant Staphylococcus aureus) 12/01/2016 treated with course of Linezolid beginning 10/29/16 Nonrheumatic aortic valve disorder On tube feeding diet 08/14/2020 History: 65 year old male s/p [place] esophagectomy, Pyloromyotomy, Jejunostomy tube placement for esophageal adenocarcinoma -Diet: Isosource 1.5 to 50 cc hour with 100 cc water flushes 8 times per day and Bene protein 3 times per day Removed 11/07 (more content not included)...[facility] 03-03-2024 NoteHNO ID: [id number] Author: YAW SINGH MD Service: ? Author Type: Physician Type: Progress Notes Filed: 03/03/2024 21:11 Note Text: Patient's home health 485 form / care plan for certification period 02/27/2024 to 04/26/2024 reviewed and signed. Relevant medical records were reviewed. [facility] History of Present illness Narrative* Yaw Singh MD - 03/03/2024 9:08 PM EST Patient's home health 485 form / care plan for certification period 02/27/2024 to 04/26/2024 reviewed and signed. Relevant medical records were reviewed. Changes were communicated to home health agency documented in this encounterCommunity [facility] Center11-10-2024 [facility] Medical Records Department [address] [place] [address] Discharge Summary 02/17/24 0904 MR#: [id number] Acct: [id number] Name: SYEDAJACOB OWENS Rep #: [id number] : 1955 68 From: Gayatri Roy DO PCP: Dr. Yaw Singh MD Status:ADM IN Location: [place] [id number] Providers Date of Admission: 02/15/24 Date of Discharge: 02/17/24 Primary Care Physician: Dr. Yaw Singh MD Consultations 02/15/24 00:55 Consult: Nephrology Routine Consulting Provider: Gaudencio Greenberg Reason for Consult: ESRD on HD; (M-W-F) EMERGENT Consult: No MD Notified: Yes Date Notified: 02/15/24 Time Notified: 06:21 Method of Notification: Text Consult: Orthopedics Routine Consulting Provider: Jerod Marc Reason for Consult: Atraumatic Left Hip Fracture. EMERGENT Consult: No MD Notified: Yes Date Notified: 02/15/24 Time Notified: 06:23 Method of Notification: phone 02/15/24 01:41 Consult: Cardiology Routine Consulting Provider: Trinh Briones Reason for Consult: Pericardial Effusion and Preopeartive Evaluation. EMERGENT Consult: No MD Notified: Yes Date Notified: 02/15/24 Time Notified: 06:33 Method of Notification: Text Method of Consult:: In-Person Reason For Visit: ATRUAMTIC LEFT HIP FRACTURE Diagnosis Discharge Diagnosis (1) LEELA (acute kidney injury): Status: Acute Code(s): N17.9 - Acute kidney failure, unspecified Medications at Discharge Home Medications atorvastatin 80 mg tablet 80 mg PO QHS CHOLESTEROL #90 tabs 05/15/22 ezetimibe 10 mg tablet 10 mg PO DAILY CHOLESTEROL #90 tabs 05/15/22 acetaminophen 325 mg tablet 650 mg (2 x 325 mg) PO Q6H PRN PRN Pain 1-10 Or Fever >100.7 #0 tabs 10/25/23 melatonin 3 mg tablet 3 mg PO QHS PRN PRN Insomnia #0 tabs 10/25/23 metoprolol tartrate 25 mg tablet 25 mg PO BID #0 tabs 10/25/23 pantoprazole 40 mg tablet,delayed release 40 mg PO BID #0 tabs 10/25/23 ferrous sulfate 325 mg (65 mg iron) tablet 325 mg PO DAILY #90 tabs 11/20/23 polyethylene glycol 3350 17 gram/dose oral powder (Miralax) 17 g PO DAILY PRN constipation 12/04/23 ondansetron 4 mg disintegrating tablet 4 mg PO Q8H PRN PRN nausea and vomiting 12/25/23 fluticasone propionate 50 mcg/actuation nasal spray,suspension 1 spray intranasal DAILY 02/14/24 nitroglycerin 0.4 mg sublingual tablet 0.4 mg sublingual PRN PRN angina 02/14/24 acetaminophen 500 mg tablet 1,000 mg (2 x 500 mg) PO Q8 #1 TAB 02/17/24 aspirin 81 mg chewable tablet 81 mg PO BID #0 tabs 02/17/24 oxycodone 5 mg tablet 5 mg PO Q6H PRN pain 5 days #20 tabs 02/17/24 Hospital Course Operations - (Left hip hemiarthroplasty) Procedures 2-D Echocardiogram, EKG and - (Chest x-ray/hip x-ray x 2/CT chest) Summary of Care Provided Minutes Spent on Discharge: 38 Hospital Course: Mr. Landa is a 68-year-old white male who has a complex past medical history who presented to the emergency department at [facility] on 02/14/2024 with a chief complaint of left hip pain. Patient reported that the pain started about 2 days prior to presentation he denied any known injury however he was lifting his walker out of the back of his truck and indicated he did have a small amount of pain during that but nothing significant. He reported that his left inner thigh was progressively worsening as he has been trying to walk on that lower extremity. He reported that on the day of presentation when he was attempting to walk with his walker he had worsening pain to the point where he is unable to walk which prompted him to be evaluated in emergency department. Vital signs on presentation showed temperature of 98, heart rate 96, respirate 15, blood pressure 117/77 and pulse ox was 98% on room air. CBC shows a mild anemia with a hemoglobin of 12.5, thrombocytopenia with a platelet count of 127,000 and a normal white count. Coags were overtly unremarkable. Electrolytes were unremarkable. BUN and serum creatinine were elevated at 32 and 3.36 respectively however the patient is HD dependent at baseline. Liver function was were normal. Imaging of the hip was consistent with a subcapital fracture and orthopedic surgery was consulted by the emergency department physician. Cardiac clearance was obtained as the patient does have significant previous cardiac history with history of pericardial effusion. CT of the chest was ordered and there was no pericardial effusion on this. Echocardiogram was ordered and showed an EF of 60% with stage I diastolic dysfunction, mild asymmetric septal hypertrophy, moderate mitral annular calcification with 1+ mitral valve insufficiency, bioprosthetic aortic apparatus and no pericardial effusion was present. He was evaluated by orthopedic surgery and taken for left hip hemiarthroplasty on 02/15/2024. Patient did extremely well postoperatively. He had minimal pain and did well with pulmonary physical therapist (more content not included)...[facility]11-08-2024 History of Present illness Narrative* Krystina Quinones LPN - 02/15/2024 8:08 AM EST Scan on 02/15/2024 12:13 AM by ProviderDanette PA-C: Consultation - Emergency Medicine Scan on 02/15/2024 6:44 AM by ProviderDanette PA-C documented in this encounterCommunity [facility] Center10-28-2024 Telephone encounter Note * Telephone Encounter - Zachary Berkowitz APRN.CNP - 02/04/2024 12:59 PM EDT Spoke with the patient on the phone regarding the results of his CXR. 01/30 CXR notes moderate left and small right pleural effusions. He states not having any respiratory changes or worsening SOB. Discussed getting a thoracentesis and sending labs with the pleural fluid. Discussed potential risks associated with the procedure including pneumothorax and bleeding. The patient denies being on a blood thinner. Patient agreed to left side thoracentesis. Thoracentesis order with additional labs placed. Instructed the patient to follow up with his fiber optic assembly worker for volume management as well as wire frame lamp shade maker. Patient gets dialysis MWF. All questions answered. [facility] Miscellaneous Notes* Telephone Encounter - Zachary Berkowitz APRN.CNP - 02/04/2024 12:59 PM EDT Spoke with the patient on the phone regarding the results of his CXR. 01/30 CXR notes moderate left and small right pleural effusions. He states not having any respiratory changes or worsening SOB. Discussed getting a thoracentesis and sending labs with the pleural fluid. Discussed potential risks associated with the procedure including pneumothorax and bleeding. The patient denies being on a blood thinner. Patient agreed to left side thoracentesis. Thoracentesis order with additional labs placed. Instructed the patient to follow up with his fiber optic assembly worker for volume management as well as wire frame lamp shade maker. Patient gets dialysis MWF. All questions answered. documented in this encounterCommunity [facility] Medical Center10-24-2024 Instructions* Patient Instructions* Zachary Berkowitz APRN.CNP - 01/31/2024 9:56 AM EDT -Get chest xray today -Start Fluticasone (Flonase) 1-2 spray(s) (50 mcg/spray) per nostril once daily. -Start clotrimazole 10 mg neena 5x a day for 14 days for oral thrush documented in this encounterCommunity [facility] Medical Center10-24-2024 History of Present illness Narrative* Zachary Berkowitz APRN.CNP - 01/31/2024 9:30 AM EDT Images from the original note were not included. Patient: Jacob Landa PCP: Yaw Singh MD CC: follow up HPI: Jacob Landa is a 68 year old male never smoker with PMH significant for distal esophageal adenocarcinoma in 2020 s/p neoadjuvant chemo/radiation followed by partial esophagectomy and gastric pull-through in 2020, CAD s/p CABG, aortic stenosis s/p TAVR 2018, pleural effusion, HFpEF, HLD, HTN,asthma, GERD, CKD, LAUREN. Last Pulmonary Clinic visit was with Dr. Blair on 10/09/2023. The plan from this office visit was: -Recommend repeat chest x-ray monitoring for signs or symptoms; if large enough of an effusion, canconsider at least outpatient diagnostic thoracentesis - Last echo does confirm diastolic dysfunction - Patient currently on 20 mg Lasix daily and has upcoming appointment with cardiology On 10/30/2023-R Thoracentesis at OSH with 1360mL drained Today, the patient feels good since last office visit. Since last visit, he was hospitalized, thought he was having a kidney stone. Had kidney stones, wasgiven medications and was sent home. He had a reaction to the medication and went back to the hospital. He was septic. He started dialysis at this point. Getting HD MWF through [facility]. After discharge, he went to the alf. 12/27 was discharged home from alf. Feeling tired at times. Otherwise feeling good. Last saw fiber optic assembly worker in the spring. States seeing them for heart failure. Admits to TRIPATHI, has been off and on since hospitalization Admits to occasional productive cough of clear sputum, has improved some Admits to sinus congestion, rhinorrhea, or PND. Admits to seasonal allergies, worse in fall and spring Admits to GERD, mostly controlled on protonix, will still have GERD off and on but not bad Admits to sore throat and dry mouth Denies wheezing, fevers, chills, nightsweats, LE edema, chest pain/tightness Last used nitro in October in the hospital. Hasn't had to use since. Current therapy: Protonix Here with daughter ROS: See HPI PAST MEDICAL HISTORY Diagnosis Date Advance directive discussed with patient 02/09/2022 Discussed 02/2022, packets provided [place] (actinic keratosis) 09/07/2020 One on the right forearm dorsal, three on the left forearm dorsal and one left side of face hear hair line about eye level. Tx cryo 09/2020 Aortic valve stenosis 07/26/2015 Ascending aorta dilation (HCC) 09/21/2023 09/21/2023: 4.1cm Asthma BPH (benign prostatic hyperplasia) 07/20/2014 Carpal tunnel syndrome of right wrist CKD (chronic kidney disease) stage 4, GFR 15-29 ml/min (HCC) 01/03/2024 On dialysis and seeing Dr. Greenberg. Closed wedge compression fracture of T10 vertebra (HCC) 07/12/2023 Coronary artery disease involving [place] coronary artery without angina pectoris Seeing Dr. Noland DDD (degenerative disc disease), lumbar 11/04/2019 Esophageal adenocarcinoma (HCC) 08/09/2020 Essential hypertension, benign GERD (gastroesophageal reflux disease) 07/12/2009 History of kidney stones 07/20/2014 Iron deficiency anemia due to chronic blood loss 05/25/2020 Iron malabsorption 05/25/2020 Kidney stone Kyphosis (acquired) (postural) 07/30/2023 Malignant 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) 04/15/2020 Medicare annual wellness visit, subsequent 01/13/2021 Medical B eligibilty date 03/09/19 Date of last exam 01/13/2021 Mixed hyperlipidemia MRSA (methicillin resistant Staphylococcus aureus) 12/01/2016 treated with course of Linezolid beginning 10/29/16 Nonrheumatic aortic valve disorder On tube feeding diet 08/14/2020 History: 65 year old male s/p [place] esophagectomy, Pyloromyotomy, Jejunostomy tube placement for esophageal adenocarcinoma -Diet: Isosource 1.5 to 50 cc hour with 100 cc water flushes 8 times per day and Bene protein 3 times per day Removed 11/17/2020 Personal history of colonic polyps 12/27/2009 Rn Wound's nodules 03/30/2023 Will try pamelor Pleural effusion 03/11/2021 Stable in f/u studies. 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 4 07/23/2017 Situational depression 08/2014 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 01/03/2024 IJ line 10/2023: CT around time showed no PE's or clots in the heart. Due to repeat anemia 01/01/2024felt Eliquis could be stopped since risk did not out way benefit. Upper GI bleed 05/25/2020 Allergies: Seasonal Allergies Other: See Comments Comment:Sneezing, watery eyes, runny nose. OLANZapine (ZYPREXA) 2.5 mg tablet Take 1 tablet by mouth daily at bedtime. ferrous sulfate (SLOW FE) 137 mg (45 mg iron) TbER Take 1 tablet by mouth every other day. ascorbic acid, vitamin C, (VITAMIN C) 500 mg tablet Take 1 tablet by mouth every other day. melatonin 3 mg tablet Take 3 mg by mouth daily at bedtime. ondansetron orally disintegrating (ZOFRAN ODT) 4 mg disintegrating tablet Take 1 tablet by mouth every 6 hours as needed for nausea/vomiting. metoprolol tartrate, short acting, (LOPRESSOR) 25 mg tablet Take 1 tablet by mouth two times a day. ezetimibe (ZETIA) 10 mg tablet Take 1 tablet by mouth once daily. atorvastatin (LIPITOR) 80 mg tablet Take 1 tablet by mouth daily at bedtime. nitroglycerin sublingual (NITROQUICK) 0.4 mg SL tablet Dissolve 1 tablet under the tongue every 5 minutes as needed for chest pain. enteric contrast (will be provided with radiology test) For CT ABD/PEL W IVCON Routine order Administer, As Directed One Time Only, via Oral, Rectal, both Oral and Rectal, Enteric Tube, Stoma or Indwelling Catheter, Enteric Contrast as designated per enteric contrast guidelines nystatin (MYCOSTATIN) cream Apply to affected area two times a day. pantoprazole DR (PROTONIX) 40 mg tablet Take 1 tablet by mouth two times a day. acetaminophen (TYLENOL) 500 mg tablet Take 500 mg by mouth every 6 hours as needed. Social History Tobacco Use Smoking status: Never Smokeless tobacco: Never Vaping Use Vaping status: Never Used Substance Use Topics Alcohol use: Not Currently Comment: none Drug use: No Family History Problem Relation Age of Onset Cancer Mother OVARIAN AND THYROID CA Breast Cancer Mother Ischemic Heart Disease Father from Cerebral Hemmorrhage age 50 other (mva) Brother Cancer Sister Bone Marrow CA at 59 y/o Ischemic Heart Disease Sister 49 at 57y/o No Known Problems Sister Thyroid Sister Cancer Paternal Aunt cancer of colon other (unkown) Brother PAST SURGICAL HISTORY Procedure Laterality Date ADENOIDECTOMY PRIMARY <AGE 11 Adenoidectomy AORTIC VALVE RECONSTRUCTION 03/03/2019 s/p TAVR BYP OTH/THN VEIN CAROTID-SUBCLAVIAN 2003 Bypass graft carotid subcl COLONOSCOPY FLX DX W/COLLJ SPEC WHEN PFRMD 02/28/2013 COLONOSCOPY FLX DX W/COLLJ SPEC WHEN PFRMD 12/06/2016 repeat in 5 yrs COLONOSCOPY SCRN NOT HIGH RISK 06/01/2020 COLONOSCOPY W/BIOPSY SINGLE/MULTIPLE 02/22/2007 Diminutive polyp distal [id number] ECHO 01/08/2021 EGD 04/15/2020 HEART CATHETERIZATION 12/2018 with 2 stents IMPLANT MESH OPN HERNIA RPR/DEBRIDEMENT CLOSURE 03/06/2007 LAPAROSCOPY SURG RPR INITIAL INGUINAL HERNIA 03/06/2007 umbilical NM CARDIAC STRESS TEST 01/08/2021 PAST SURGICAL HISTORY OF Right 2016 incision and drainage right axillary abscess REPAIR ANORECTAL FISTULA W/PLUG 12/06/2016 REPAIR FIRST ABDOMINAL WALL HERNIA 03/06/2007 right STENT - CORONARY 2015 x3 & x2 12/2018 TONSILLECTOMY PRIMARY/SECONDARY <AGE 11 Tonsillectomy TOT/SUB ESOPHAGECTOMY W/THORACOT 08/09/2020 [facility] Roger esophagectomy, jejunostomy tube placement I reviewed the past medical history, family history, social history and surgical history with changes noted above and updated in EMR. IMMUNIZATIONS Immunization History Administered Date(s) Administered hepatitis B (HepB-CpG) vaccine, adult, 2-dose series (HEPLISAV-B) 12/17/2023 influenza (HD-IIV3) vaccine, age 65+ yr, high dose, trivalent, PF (FLUZONE HIGH-DOSE) 12/11/2023 influenza (HD-IIV4) vaccine, age 65+ yr, high dose, quadrivalent, PF (FLUZONE HIGH-DOSE) 01/13/2021 02/09/2022 03/30/2023 influenza (IIV3) vaccine, age 6 mo - 64 yr, trivalent (AFLURIA, FLULAVAL, FLUVIRIN, FLUZONE) 01/28/2018 influenza (IIV3) vaccine, trivalent, PF (AFLURIA, FLUARIX, FLULAVAL, FLUVIRIN, FLUZONE) 02/07/2014 01/31/2021 influenza (IIV4) vaccine, age 6 mo - 64 yr, quadrivalent (AFLURIA, FLULAVAL, FLUZONE) 01/26/2015 02/24/2016 01/06/2017 influenza (IIV4) vaccine, age 6 mo - 64 yr, quadrivalent, PF (AFLURIA, FLUARIX, FLULAVAL, FLUZONE) 01/07/2018 influenza (ccIIV4) vaccine, age 6+ mo, quadrivalent, PF (FLUCELVAX) 01/28/2018 influenza vaccine, unspecified formulation 02/02/2006 02/19/2009 01/21/2010 pneumococcal conjugate (PCV13) vaccine, 13 valent (PREVNAR 13) 01/28/2018 pneumococcal conjugate (PCV20) vaccine, 20 valent (PREVNAR 20) 11/30/2023 pneumococcal polysaccharide (PPV23) vaccine, 23 valent (PNEUMOVAX 23) 01/21/2010 11/04/2019 tetanus diphtheria pertussis (Tdap) vaccine, age 7+ yr (ADACEL, BOOSTRIX) 07/17/2011 01/07/2018 01/28/2018 tuberculin skin test, unspecified formulation 11/05/2023 PHYSICAL EXAMINATION: BP 103/71 (BP Site: Right Arm, BP Position: Sitting, BP Cuff Size: Large Adult) Pulse 89 Temp 36.5 C (97.7 F) Resp 24 Ht 177.8 cm (5' 10") Wt 70.3 kg (155 lb) SpO2 100% BMI 22.24 kg/m O2: RA Physical Exam Vitals reviewed. Constitutional: General: He is not in acute distress. Appearance: Normal appearance. He is not ill-appearing, toxic-appearing or diaphoretic. HENT: Head: Normocephalic and atraumatic. Nose: Nose normal. No congestion or rhinorrhea. Mouth/Throat: Lips: [place]. No lesions. Mouth: Mucous membranes are moist. Tongue: Lesions (white coating on the tongue consistent with oral thrush) present. Tongue does not deviate from midline. Palate: No lesions. Pharynx: Oropharynx is clear. Uvula midline. No pharyngeal swelling, oropharyngeal exudate, posterior oropharyngeal erythema or uvula swelling. Eyes: Conjunctiva/sclera: Conjunctivae normal. Pupils: Pupils are equal, round, and reactive to light. Cardiovascular: Rate and Rhythm: Normal rate and regular rhythm. Pulses: Normal pulses. Heart sounds: Normal heart sounds. No murmur heard. No friction rub. No gallop. Pulmonary: Effort: Pulmonary effort is normal. No respiratory distress. Breath sounds: Normal air entry. No stridor. Examination of the right-lower field reveals decreasedbreath sounds. Examination of the left-lower field reveals decreased breath sounds. Decreased breath sounds (Clear, diminished lung sounds in bilateral lower lobes) present. No wheezing, rhonchi or rales. Musculoskeletal: Right lower leg: No edema. Left lower leg: No edema. Skin: General: Skin is warm and dry. Capillary Refill: Capillary refill takes less than 2 seconds. Neurological: General: No focal deficit present. Mental Status: He is alert and oriented to person, place, and time. Mental status is at baseline. Psychiatric: Mood and Affect: Mood normal. Behavior: Behavior normal. Thought Content: Thought content normal. Judgment: Judgment normal. DATA Reviewed: I have personally reviewed and analyzed the following data: PFTs, 05/14/2020 CXR Last XR Chest - Impression Only XR CHEST 2V FRONTAL/LAT Exam End: 09/13/2023 8:13 AM (Final result) Impression: IMPRESSION: Persistent bilateral pleural effusions. A follow-up exam is recommended. ... CT Chest CT Chest other findings: Last CT Chest - Impression Only CT CHEST W IVCON Exam End: 08/03/2023 9:29 AM (Final result) Impression: IMPRESSION: 1. Redemonstrated findings suspicious for skeletal metastatic disease at T10 and T11, with a new minimal superior endplate deformity at T10 that is presumably pathologic. 2. No CT evidence of additional metastatic disease in the chest. 3. Stable postsurgical changes from esophagectomy and gastric pull-through.... Echo Recent Results (from the past 4464 hour(s)) ECHO Collection Time: 09/21/23 8:03 AM Impression CONCLUSIONS: - Technically difficult exam due to body habitus. - Exam indication: Routine surveillance of prosthetic valve (>3yrs) - The left ventricle is normal in size. There is mild concentric left ventricular hypertrophy. Left ventricular systolic function is normal. EF = 56 5% (2D 4-ch.) Grade I left ventricular diastolic dysfunction. - The right ventricle is normal in size. Right ventricular systolic function is normal. - The visualized aorta is dilated with a maximal dimension of 4.1 cm. - Bioprosthetic prosthetic aortic valve. There is mild (1+ - 2+) aortic valve regurgitation. The peak gradient is 12 mmHg, the mean gradient is 6 mmHg and the dimensionless valve index is 0.52. - Exam was compared with the prior echocardiographic exam performed on 11/01/2015. * * * Final * * * Assessment/Plan ASSESSMENT/PLAN: 1. Pleural effusion - ICD9: 511.9, ICD10: J90 (primary diagnosis) -has started HD MWF since [facility] -Clear, diminished lung sounds in bilateral lower lobes -Will repeat CXR today -If this shows significant effusions, discussed with the patient that the next step would be an US guided thoracentesis and will send pleural fluid for labs including cytology -following with a fiber optic assembly worker for HF, encouraged him to follow up with his fiber optic assembly worker. Does not appear fluid overloaded on exam, no crackles, no LE edema - XR CHEST 2V FRONTAL/LAT 2. Lung nodules - ICD9: 793.19, ICD10: R91.8 -08/03/2023 CT chest notes unchanged small pulmonary nodules measuring up to 2- 3mm, redemonstrated findings suspicious for skeletal metastatic disease, and no CT evidence of additional metastatic disease in the chest per the radiologist -Dr. Jenkins in oncology ordered a repeat CT chest scheduled for 04/10/24 -Continue to follow with Dr. Jenkins in oncology 3. Seasonal allergies - ICD9: 477.9, ICD10: J30.2 -Admits to rhinorrhea, PND, and sinus congestion -Start Fluticasone (Flonase) 1-2 spray(s) (50 mcg/spray) per nostril once daily. - FLUTICASONE PROPIONATE 50 MCG/ACTUATION NASAL SPRAY,SUSPENSION 4. Oral thrush - ICD9: 112.0, ICD10: B37.0 -White coating on the tongue consistent with oral thrush -Start clotrimazole 10 mg neena 5x a day for 14 days for oral thrush - CLOTRIMAZOLE 10 MG NEENA RTC in [address] Blair I have discussed the above recommendations in detail with the patient. Patient verbalizes understanding and is in agreement with plan as stated above. I spent a total of 32 minutes on the date of the service which included preparing to see the patient, [id number] patient care, completing clinical documentation, obtaining and/or reviewing separately obtained history, performing a medically appropriate examination, counseling and educating the pat ient/family/caregiver, and ordering medications, tests, or procedures . Zachary Berkowitz APRN.CNP Pulmonary Medicine documented [facility] Telephone encounter Note * Telephone Encounter - Isa Godoy LPN - 01/29/2024 9:10 AM EDT Spoke with pt. He did receive message concerning results, will F/U with Dr. Beck as directed Isa Godoy LPN [facility] Miscellaneous Notes* Telephone Encounter - Isa Godoy LPN - 01/29/2024 9:10 AM EDT Spoke with pt. He did receive message concerning results, will F/U with Dr. Beck as directed Isa Godoy LPN * Telephone Encounter - Isa Godoy LPN - 01/28/2024 3:32 PM EDT Left detailed message on identified voicemail concerning stomach x-rays and small bowel follow thrudid not suggest any sign of cancer. He is scheduled to see Dr. Beck for possible stent placement in esophagus this may help with his symptoms of nausea. If he has questions to please contact office. Isa Godoy LPN * Telephone Encounter - Richard Jenkins DO - 01/28/2024 3:04 PM EDT Can let him know the results of the stomach x-ray and small bowel follow-through did not suggest any sign of cancer. He is scheduled to see Dr. Beck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 esophagus. Bowels have been moving daily. Stools formed. No black or bloody stool since October. Anemic. Receiving Procrit and iron at dialysis. PMH, medications and allergies personally reviewed by me today. Any changes documented in appropriate section. ROS: Constitutional: Denies episodes of fever and night sweats. Neuro: Denies CHAIDEZ, vertigo, dizziness and imbalance. Denies symptoms of neuropathy. HEENT: No recent change in voice, vision or hearing. Resp: No cough or dyspnea. CVS: No exertional chest pain. GI: See above. : See above. Endo: Denies hot flashes. Denies polyuria and polydipsia. Denies heat and cold intolerance. Musculoskeletal: See above Derm: Denies rash. Denies jaundice and diffuse pruritis. Heme: Denies unusual bleeding and unexplained bruising. Psych: Normal mood. PHYSICAL EXAM: Vitals: Blood pressure 111/80, pulse 91, temperature 36.6 C (97.8 F), temperature source Temporal, weight 72.1 kg (159 lb), SpO2 98%. Well-appearing and in no acute distress. EYES: Sclerae are anicteric bilaterally. NECK: Supple. LYMPHATIC: There is no palpable cervical or supraclavicular adenopathy. RESPIRATORY: There is exam evidence of residual bilateral pleural effusion. CARDIOVASCULAR: Rhythm is regular. ABDOMEN: The abdomen is nondistended. Extremities: No swelling or edema. SKIN: No jaundice or rash. No petechiae. NEUROLOGIC: statistics teacher II-XII are grossly intact. No focal motor weakness. MS: No tenderness with hard palpation down the entire spinal column. 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 -Tolerated therapy well overall, but was able to only get 4 doses preoperative chemotherapy secondary to cytopenias. -ypT3 N0 (0 of 29 LNs). -Reviewed the results of the CT, MRI and PET. Concern for local gastric recurrence and T9-T10 metastasis as well as 8th left rib. -Early satiety. -Anemia. -Nausea. Plan: -Start olanzapine 2.5 mg at at bedtime. -Upper GI with small bowel follow-through. -Work up anemia. -Otherwise CT chest, abdomen pelvis without IV contrast followed by office visit in April. -Follow-up with Dr. Beck. Portions of this documentation were copied and pasted from previous office visit notes in order to provide a cohesive continuity of the history. The note has been reviewed and edited and updated as necessary. I spent a total of 30 minutes on the date of the service which included preparing to see the patient, [id number] patient care, completing clinical documentation, obtaining and/or reviewing separately obtained history, performing a medically appropriate examination, counseling and educating the pat ient/family/caregiver, ordering medications, tests, or procedures, communicating with other HCPs (not separately reported), and communicating results to the patient/family/caregiver. Richard Jenkins DO documented in this encounterCommunity [facility]10-07-2024 Telephone encounter Note * Telephone Encounter - Jannet Goldsmith MA - 01/14/2024 9:35 AM EDT Letter sent to pt notifying him that office has attempted to reach him by phone x 2 with messages left for a return call regarding results. Pt notified to contact office and ask to speak with Triage Nurse. Pt has appt on 01/17/24, will update appt note as well to address. Jannet Goldsmith MA [facility] Miscellaneous Notes* Telephone Encounter - Jannet Goldsmith MA - 01/14/2024 9:35 AM EDT Letter sent to pt notifying him that office has attempted to reach him by phone x 2 with messages left for a return call regarding results. Pt notified to contact office and ask to speak with Triage Nurse. Pt has appt on 01/17/24, will update appt note as well to address. Jannet Goldsmith MA * Telephone Encounter - Alberta Candelaria MA - 01/11/2024 8:19 AM EDT Left additional message for patient to contact office. Alberta Candelaria MA * Telephone Encounter - Gayatri Pradhan MA - 01/07/2024 10:01 AM EDT Message left for pt to call back for results. Gayatri Pradhan MA * Telephone Encounter - Yaw Singh MD - 01/06/2024 9:02 PM EDT Let patient know his iron is low and want him to start taking Slo Fe over the counter one every other day along with Vit C 500 mg with it every other day. I placed an order to get CBC repeated this documented in this encounterCommunity [facility] Center10-04-2024 Telephone encounter Note * Telephone Encounter - Alberta Candelaria MA - 01/11/2024 8:19 AM EDT Left additional message for patient to contact office. Alberta Candelaria MA [facility] Telephone encounter Note* Telephone Encounter - Syl Jensen MA - 01/10/2024 3:16 PM EDT Kay from home health informed and verbalized understanding. Syl Jensen MA [facility] Miscellaneous Notes* Telephone Encounter - Syl Jensen MA - 01/10/2024 3:16 PM EDT Kay from home health informed and verbalized understanding. Syl Jensen MA * Telephone Encounter - Yaw Singh MD - 01/10/2024 3:00 PM EDT Advise Kay that if patient is becoming lethargic, confused, shortness of breath or fever will not come down that he needs to go to the ER. * Telephone Encounter - Cathi De Souza LPN - 01/10/2024 2:50 PM EDT Kay calls states they are there with pt now. Just wanted to let you know pt is running a temp of101.2 and very tired had one episode of vomiting prior to them getting there. B/P 119/69 AND PULSE 103. Not sure if he has caught a virus going around or what is going on .But did want to make you aware. documented in this encounterCommunity [facility] Center10-03-2024 Telephone encounter Note * Telephone Encounter - Yaw Singh MD - 01/10/2024 3:00 PM EDT Advise Kay that if patient is becoming lethargic, confused, shortness of breath or fever will not come down that he needs to go to the ER. [facility] Telephone encounter Note* Telephone Encounter - Cathi De Souza LPN - 01/10/2024 2:50 PM EDT Kay calls states they are there with pt now. Just wanted to let you know pt is running a temp of101.2 and very tired had one episode of vomiting prior to them getting there. B/P 119/69 AND PULSE 103. Not sure if he has caught a virus going around or what is going on .But did want to make you aware. [facility] Telephone encounter Note* Telephone Encounter - Alberta Candelaria MA - 01/08/2024 10:10 AM EDT Patient was already seen. Alberta Candelaria MA [facility] Miscellaneous Notes* Telephone Encounter - Alberta Candelaria MA - 01/08/2024 10:10 AM EDT Patient was already seen. Alberta Candealria MA * Telephone Encounter - Alberta Candelaria MA - 01/02/2024 4:55 PM EDT Patient was D/C from [facility]. Spoke with nurse sadie to see if we could obtain any additional information such as the D/C summary from his stay at there facility and she indicated once the patient is D/C nursing staff doesn't have access to the patient's chart. She suggested calling Dr. Milner who is the director and would have been handling the patients car while there. Dr. Milner [phone] attempted to contact there office to obtain records they were experiencing high call volume was no longer able to stay on hold. Please try and call again tomorrow morning. Alberta Candelaria MA documented in this encounterCommunity [facility] Center09-30-2024 Telephone encounter Note * Telephone Encounter - Gayatri Pradhan MA - 01/07/2024 10:01 AM EDT Message left for pt to call back for results. Gayatri Pradhan MA [facility] History of Present illness Narrative* Yaw Singh MD - 01/06/2024 9:08 PM EDT Patient's home health 485 form / care plan for certification period 12/29/2023 to 02/26/2024 reviewed and signed. Relevant medical records were reviewed. Changes were communicated to home health agency documented in this encounterCommunity [facility] Medical Center09-29-2024 Telephone encounter Note * Telephone Encounter - Yaw Singh MD - 01/06/2024 9:02 PM EDT Let patient know his iron is low and want him to start taking Slo Fe over the counter one every other day along with Vit C 500 mg with it every other day. I placed an order to get CBC repeated this [facility] History of Present illness Narrative* Yaw Singh MD - 01/03/2024 11:00 AM EDT Images from the original note were not included. Chief Complaint Patient presents with: Hospital F/U And alf f/u HPI Jacob Landa is a 68 year old male who presents here today for Above Complaints.. Patient was seen in [facility] 09/21/[address] abdominal colici pain. CT showed Lt Ureteral stone with mild Lt hydronephrosis. CT also showed mild bilateral plural effusions. Patient was treated with meds for the stone and told to f/u with Urology (Dr. Verdugo). He was also placed on Lasix for 10 days and told to f/u with Cardio Dr. Noland. Patient presented back to the ER on 10/12/2023 and was admitted till 10/25/2023. See d/c summary below. Patient was Dx with low back wound, renal failure with uremia, Strep bacteremia from cystitis, and bilateral pulmonary effusions from kidney failure. Patient was discharged on antibiotic to SNF. Patient present back to ER on 10/29/2023: see discharge summary below: Patient was discharged back to SNF and was to f/u with renal, PCP and Gastro in 1-2 weeks. Patient present back to the ER on 11/15/2023 due to nose bleed and wa released 11/16/2023: discharge summary as below. Patient sent back to SNF to continue Eliquis once a day for a total of 12 weeks (but to hold till 11/19/2023) , complete his antibiotic on 11/25/2023 and continue pantoprazole 40 mg twice a day. Patient chaidez been following with renal and getting dialysis three days a week. Patient has seen Gastro on 12/25/2023 and EGD performed. Showed stenosis of the esophago-gastric anastomosis and area was biopsied and dilated. There is discussion around possibly stenting area. Stomach showed chronic gastritis but no ulcers or bleeding. Second part of duodenum was normal. Patient not aware of any future f/u. Received message from renal earlier this week that his Hg was at 10 two weeks ago and recently downto 8.2. Earlier this week patient had a lot of blood on his shorts and may of been from his pressure sores. He denies hemoptysis, hematochezia, melena or gross hematuria. Patient has wounds on both butt cheeks. Patient has [facility] for wound care but was not referred to a outpatient wound care facility. Emotionally patient feels he is doing ok. Does not feel depressed and not anxious. Looking forward to getting back to driving [place] [email or web address] Was sent home from [facility] 12/28/2023 and has [facility]. He is getting long-term and PHYSICAL THERAPY. Has occasional shortness of breath and has a home concentrator that was provided after his discharge from the SNF. Patient was not instructed on when to where the O2. No chest pain or palpitations. No edema. Gets occasional nausea. Rarely vomits. Has Zofran to use as needed. Had a headache this morning for a few moments and resolved. BP's have been around 100/70. Denies dizziness with standing. Past medical history, appointments, medications, allergies reviewed. Previous Medical History PAST MEDICAL HISTORY Diagnosis Date Advance directive discussed with patient 02/09/2022 Discussed 02/2022, packets provided AK (actinic keratosis) 09/07/2020 One on the right forearm dorsal, three on the left forearm dorsal and one left side of face hear hair line about eye level. Tx cryo 09/2020 Aortic valve stenosis 07/26/2015 Ascending aorta dilation (HCC) 09/21/2023 09/21/2023: 4.1cm Asthma BPH (benign prostatic hyperplasia) 07/20/2014 Carpal tunnel syndrome of right wrist Closed wedge compression fracture of T10 vertebra (HCC) 07/12/2023 Coronary artery disease involving [place] coronary artery without angina pectoris Seeing Dr. Ludin GALVEZ (degenerative disc disease), lumbar 11/04/2019 Esophageal adenocarcinoma (HCC) 08/09/2020 Essential hypertension, benign GERD (gastroesophageal reflux disease) 07/12/2009 History of kidney stones 07/20/2014 Iron deficiency anemia due to chronic blood loss 05/25/2020 Iron malabsorption 05/25/2020 Kidney stone Kyphosis (acquired) (postural) 07/30/2023 Malignant 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) 04/15/2020 Medicare annual wellness visit, subsequent 01/13/2021 Medical B eligibilty date 03/09/19 Date of last exam 01/13/2021 Mixed hyperlipidemia MRSA (methicillin resistant Staphylococcus aureus) 12/01/2016 treated with course of Linezolid beginning 10/29/16 Nonrheumatic aortic valve disorder On tube feeding diet 08/14/2020 History: 65 year old male s/p [place] esophagectomy, Pyloromyotomy, Jejunostomy tube placement for esophageal adenocarcinoma -Diet: Isosource 1.5 to 50 cc hour with 100 cc water flushes 8 times per day and Bene protein 3 times per day Removed 11/17/2020 Personal history of colonic polyps 12/27/2009 Rn Wound's nodules 03/30/2023 Will try pamelor Pleural effusion 03/11/2021 Stable in f/u studies. Primary insomnia 03/30/2023 S/P CABG x 3 2003 S/P CABG x 4 07/23/2017 Situational depression 08/2014 Upper GI bleed 05/25/2020 Previous Surgical History PAST SURGICAL HISTORY Procedure Laterality Date ADENOIDECTOMY PRIMARY <AGE 11 Adenoidectomy AORTIC VALVE RECONSTRUCTION 03/03/2019 s/p TAVR BYP OTH/THN VEIN CAROTID-SUBCLAVIAN 2002 Bypass graft carotid subcl COLONOSCOPY FLX DX W/COLLJ SPEC WHEN PFRMD 02/28/2013 COLONOSCOPY FLX DX W/COLLJ SPEC WHEN PFRMD 12/06/2016 repeat in 5 yrs COLONOSCOPY SCRN NOT HIGH RISK 06/01/2020 COLONOSCOPY W/BIOPSY SINGLE/MULTIPLE 02/22/2007 Diminutive polyp distal [id number] ECHO 01/08/2021 EGD 04/15/2020 HEART CATHETERIZATION 12/2018 with 2 stents IMPLANT MESH OPN HERNIA RPR/DEBRIDEMENT CLOSURE 03/06/2007 LAPAROSCOPY SURG RPR INITIAL INGUINAL HERNIA 03/06/2007 umbilical NM CARDIAC STRESS TEST 01/08/2021 PAST SURGICAL HISTORY OF Right 2016 incision and drainage right axillary abscess REPAIR ANORECTAL FISTULA W/PLUG 12/06/2016 REPAIR FIRST ABDOMINAL WALL HERNIA 03/06/2007 right STENT - CORONARY 2014 x3 & x2 12/2018 TONSILLECTOMY PRIMARY/SECONDARY <AGE 11 Tonsillectomy TOT/SUB ESOPHAGECTOMY W/THORACOT 08/09/2020 [place] esophagectomy, jejunostomy tube placement Family History FAMILY HISTORY Problem Relation Age of Onset Cancer Mother OVARIAN AND THYROID CA Breast Cancer Mother Ischemic Heart Disease Father from Cerebral Hemmorrhage age 50 other (mva) Brother Cancer Sister Bone Marrow CA at 59 y/o Ischemic Heart Disease Sister 49 at 57y/o No Known Problems Sister Thyroid Sister Cancer Paternal Aunt cancer of colon other (unkown) Brother Patient Allergies ALLERGIES Allergen Reactions Seasonal Allergies Other: See Comments Sneezing, watery eyes, runny nose. Current Medications Current Outpatient Medications on File Prior to Visit Medication Sig furosemide (LASIX) 20 mg tablet Take 1 tablet by mouth once daily. HYDROcodone-acetaminophen 2.5-325 mg tab Take 1 tablet by mouth every 6 hours as needed for pain. Given at [facility] ER 09/10/23 POTASSIUM ORAL Take by mouth. iv contrast (will be provided with radiology test) CT Chest W -Inject, intravenously, once for 1 dose.No IV access, insert saline lock prior to the beginning of sedation, infusion, injection of imaging exam. Discontinue saline lock post exam. If Pt. has a central line or IVAD, may access for administration according to line specific nursing protocol. Once exam is complete flush line and de-accessaccording to line specific nursing protocol in the CT contrast administration guidelines link. iv contrast (will be provided with radiology test) CT ABD/PEL -Inject, intravenously, once for 1 dose.No IV access, insert saline lock prior to the beginning of sedation, infusion, injection of imaging exam. Discontinue saline lock post exam. If Pt. has a central line or IVAD, may access for administration according to line specific nursing protocol. Once exam is complete flush line and de-accessaccording to line specific nursing protocol in the CT contrast administration guidelines link. enteric contrast (will be provided with radiology test) For CT ABD/PEL W IVCON Routine order Administer, As Directed One Time Only, via Oral, Rectal, both Oral and Rectal, Enteric Tube, Stoma or Indwelling Catheter, Enteric Contrast as designated per enteric contrast guidelines ezetimibe (ZETIA) 10 mg tablet Take 1 tablet by mouth once daily. nystatin (MYCOSTATIN) cream Apply to affected area two times a day. ondansetron (ZOFRAN) 8 mg tablet Take 1 tablet by mouth every 8 hours as needed for nausea/vomiting. pantoprazole DR (PROTONIX) 40 mg tablet Take 1 tablet by mouth two times a day. sodium chloride (SALINE MIST) 0.65 % nasal spray Use 1 Hutchins in the nose as needed for cold/allergysymptoms. atorvastatin (LIPITOR) 80 mg tablet Take 1 tablet by mouth daily at bedtime. aspirin 81 mg chewable tablet Take 1 tablet by mouth once daily. metoprolol tartrate, short acting, (LOPRESSOR) 25 mg tablet Take 1 tablet by mouth twice daily. acetaminophen (TYLENOL) 500 mg tablet Take 500 mg by mouth every 6 hours as needed. amLODIPine (NORVASC) 10 mg tablet Take 1 tablet by mouth once daily. No current facility-administered medications on file prior to visit. Social History Social History Tobacco Use Smoking status: Never Smokeless tobacco: Never Vaping Use Vaping status: Never Used Substance Use Topics Alcohol use: Not Currently Comment: none Drug use: No Review of Symptoms REVIEW OF SYSTEMS See HPI EXAM: BP 157/70 Pulse 75 Ht 175.3 cm (5' 9") Wt 77.7 kg (171 lb 6.4 oz) BMI 25.31 kg/m BP 100/68 Pulse 75 Ht 175.3 cm (5' 9") Wt 77.7 kg (171 lb 6.4 oz) BMI 25.31 kg/m Last 10 Encounter Wt Readings: Date: Wt: 01/03/2024 77.7 kg (171 lb 6.4 oz) 10/09/2023 90.3 kg (199 lb) 10/05/2023 90.7 kg (200 lb) 09/13/2023 88 kg (194 lb) 08/10/2023 88.9 kg (196 lb) 07/12/2023 88 kg (194 lb 0.1 oz) 06/19/2023 88 kg (194 lb) 06/05/2023 87.5 kg (193 lb) 05/01/2023 88.5 kg (195 lb) 04/25/2023 88.5 kg (195 lb) General Appearance: Well appearing, alert, in no acute distress, well-hydrated, well nourished. andOverweight. Neck: Supple, no adenopathy; thyroid symmetric, normal size, no bruits. Lungs: Lungs clear to auscultation. No wheezing, rhonchi, rales.. Heart: RRR without murmur, gallop, or rubs. No ectopy. Abdomen: Normal abdominal exam, Abdomen soft, non-tender. Bowel sounds normal. No masses, organomegaly. Extremities: No deformities, edema, skin discoloration, Good capillary refill. . Peripheral Pulses: Normal. Neurologic: patient in wheel chair. Sensation to light touch intact. Crainal nerves 2-12 grossly intact. . Skin: has stage two pressure ulcers on both butt cheeks. No fat evolvement and no infection. Health Maintenance List Anxiety Screening Never done Advance Directive Discussion due on 04/09/2023 Covid-19 Vaccine( - season) Never done Influenza Vaccine(1) due on 12/09/2023 RSV Vaccine(1 - Risk 60-74 years 1-dose series) due on 03/30/2024 Shingrix Vaccine(1 of 2) due on 03/30/2024 BP Controlled (<130/80) due on 03/30/2024 LDL Cholesterol due on 10/04/2024 Annual PCP Team Chronic Disease Visit due on 10/04/2024 Colorectal Cancer Screening due on 06/01/2025 Diabetes Screening due on 10/04/2026 DTaP,Tdap,Td Vaccine(4 - Td or Tdap) due on 01/29/2028 Lipid Screening due on 10/04/2028 Spirometry Completed Hepatitis C Screening Completed Pneumococcal Vaccine: 65+ Completed HPV Vaccine Aged Out Data reviewed A/P ASSESSMENT/PLAN: 1. Pressure injury of buttock, stage 2, unspecified laterality (HCC) - ICD9: 707.05, 707.22, ICD10:L89.302 (primary diagnosis) - advised to use butt paste or Pinx salve in place of what he has so it doesn't burn. 2. CKD (chronic kidney disease) stage 4, GFR 15-29 ml/min (HCC) - ICD9: 585.4, ICD10: N18.4 - on dialysis and seeing renal Check - IRON AND TIBC - COMPLETE BLOOD COUNT AND DIFFERENTIAL 3. Iron deficiency anemia due to chronic blood loss - ICD9: 280.0, ICD10: D50.0 Check - IRON AND TIBC - COMPLETE BLOOD COUNT AND DIFFERENTIAL 4. 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 Due to repeat anemia 01/01/2024 felt Eliquis could be stopped since risk did not out way benefit. Requested Prescriptions Signed Prescriptions Disp Refills ondansetron orally disintegrating (ZOFRAN ODT) 4 mg disintegrating tablet 30 tablet 1 Sig: Take 1 tablet by mouth every 6 hours as needed for nausea/vomiting. metoprolol tartrate, short acting, (LOPRESSOR) 25 mg tablet 180 tablet 1 Sig: Take 1 tablet by mouth two times a day. ezetimibe (ZETIA) 10 mg tablet 90 tablet 1 Sig: Take 1 tablet by mouth once daily. atorvastatin (LIPITOR) 80 mg tablet 90 tablet 1 Sig: Take 1 tablet by mouth daily at bedtime. nitroglycerin sublingual (NITROQUICK) 0.4 mg SL tablet 25 tablet 1 Sig: Dissolve 1 tablet under the tongue every 5 minutes as needed for chest pain. F/u in 2 weeks to recheck pressure ulcers. I spent a total of 93 minutes on the date of the service which included preparing to see the patient, [id number] patient care, completing clinical documentation, performing a medically appropriate examination, counseling and educating the patient/family/caregiver and ordering medications, tests, or procedures. Yaw Singh MD documented in this encounterCommunity [facility]09-[facility] Telephone encounter Note * Telephone Encounter - Alberta Candelaria MA - 01/02/2024 4:55 PM EDT Patient was D/C from [facility]. Spoke with nurse sadie to see if we could obtain any additional information such as the D/C summary from his stay at there facility and she indicated once the patient is D/C nursing staff doesn't have access to the patient's chart. She suggested calling Dr. Milner who is the director and would have been handling the patients car while there. Dr. Milner [phone] attempted to contact there office to obtain records they were experiencing high call volume was no longer able to stay on hold. Please try and call again tomorrow morning. Alberta Candelaria MA [facility] Telephone encounter Note* Telephone Encounter - Helena Velez RN - 01/01/2024 3:31 PM EDT Aisha calling back and asking for orders to be faxed to [facility] at [phone]. Faxed as requested. Helena Velez RN [facility] Miscellaneous Notes* Telephone Encounter - Helena Velez RN - 01/01/2024 3:31 PM EDT Aisha calling back and asking for orders to be faxed to [facility] at [phone]. Faxed as requested. Helena Velez RN * Telephone Encounter - Alberta Candelaria MA - 01/01/2024 3:19 PM EDT Left message for Bryanna regarding orders. Please find out where they would like the lab order sent. Alberta Candelaria MA * Telephone Encounter - Yaw Singh MD - 01/01/2024 3:06 PM EDT I placed an order but do not know where it needs faxed to. Order printed. * Telephone Encounter - Samaria Mac LPN - 01/01/2024 2:48 PM EDT Bryanna from [facility] calling patient had told her this morning at 3 am he had moderate amount of blood on his underwear in rectal area. She said his wound on buttocks, near rectal area is not actively bleeding. She advised to go to ER and patient refused. Nurse said tomorrow is patient dialysis day at [facility], asking if PCP wants to send order for H&H to be done? Pl ease advise documented in this encounterCommunity [facility] Center09-24-2024 Telephone encounter Note * Telephone Encounter - Alberta Candelaria MA - 01/01/2024 3:19 PM EDT Left message for Bryanna regarding orders. Please find out where they would like the lab order sent. Alberta Candelaria MA [facility] Telephone encounter Note* Telephone Encounter - Yaw Singh MD - 01/01/2024 3:06 PM EDT I placed an order but do not know where it needs faxed to. Order printed. [facility] Telephone encounter Note* Telephone Encounter - Samaria Mac LPN - 01/01/2024 2:48 PM EDT Bryanna from [facility] calling patient had told her this morning at 3 am he had moderate amount of blood on his underwear in rectal area. She said his wound on buttocks, near rectal area is not actively bleeding. She advised to go to ER and patient refused. Nurse said tomorrow is patient dialysis day at [facility], asking if PCP wants to send order for H&H to be done? Pl ease advise [facility] Telephone encounter Note* Telephone Encounter - Yaw Singh MD - 12/31/2023 4:00 PM EDT Noted. [facility] Miscellaneous Notes* Telephone Encounter - Yaw Singh MD - 12/31/2023 4:00 PM EDT Noted. * Telephone Encounter - Ani Guido LPN - 12/31/2023 3:34 PM EDT I spoke with Hayde at , verbalized understanding. She did say that they may be unable to get a culture. The skin is dry, just has the red markings on the outer edges, looks like a start to something. She states they will monitor, if it worsens to where a culture can be taken they will do that. * Telephone Encounter - Yaw Singh MD - 12/31/2023 12:45 PM EDT Let Hayde know I agree with the wound care plan. See is she can get a would culture for bacteria and fungus? * Telephone Encounter - Kaycee Menon LPN - 12/31/2023 9:29 AM EDT Hayde calling from [facility]. Patient got released on 12/28/23 and was seen by on the 12/29/23. Nurse Hayde noted that patient has moisture on skin of buttocks with breakdown. Ordered triad paste to apply 2 x daily and monitoring. Maybe fungal? They will reevaluate at next visit. Orders for: fci, OT and PT Please review and advise Kaycee Menon LPN documented in this encounterCommunity [facility] Center09-23-2024 Telephone encounter Note * Telephone Encounter - Ain Guido LPN - 12/31/2023 3:34 PM EDT I spoke with Hayde at , verbalized understanding. She did say that they may be unable to get a culture. The skin is dry, just has the red markings on the outer edges, looks like a start to something. She states they will monitor, if it worsens to where a culture can be taken they will do that. [facility] Telephone encounter Note* Telephone Encounter - Yaw Singh MD - 12/31/2023 12:45 PM EDT Let Hayde know I agree with the wound care plan. See is she can get a would culture for bacteria and fungus? [facility] Telephone encounter Note* Telephone Encounter - Kaycee Menon LPN - 12/31/2023 9:29 AM EDT Hayde calling from [facility]. Patient got released on 12/28/23 and was seen by on the 12/29/23. Nurse Hayde noted that patient has moisture on skin of buttocks with breakdown. Ordered triad paste to apply 2 x daily and monitoring. Maybe fungal? They will reevaluate at next visit. Orders for: fci, OT and PT Please review and advise Kaycee Menon LPN [facility] Telephone encounter Note* Telephone Encounter - Krystina Quinones LPN - 12/28/2023 2:13 PM EDT Janay advised of Dr Singh's message. She verbalizes understanding. Krystina Quinones LPN [facility] Miscellaneous Notes* Telephone Encounter - Krystina Quinones LPN - 12/28/2023 2:13 PM EDT Janay advised of Dr Singh's message. She verbalizes understanding. Krystina Quinones LPN * Telephone Encounter - Yaw Singh MD - 12/28/2023 1:47 PM EDT Yes I will follow. * Telephone Encounter - Helena Velez RN - 12/28/2023 11:55 AM EDT Janay from [facility] calls and states that patient was discharged from [place] on 12/27/2023 with the diagnosis of bilateral pleural effusion, LEELA, and Anemia. Janay asking if provider willing to follow patient with orders for fci, physical therapy, and occupational therapy. USP doctor did sign orders to abeJanay asking if provider will follow orders? If agreeable please give Luis Alfredo call back . Thank you, Helena Velez RN documented in this encounterCommunity [facility] Medical Center09-20-2024 Telephone encounter Note * Telephone Encounter - Yaw Singh MD - 12/28/2023 1:47 PM EDT Yes I will follow. [facility] Telephone encounter Note* Telephone Encounter - Helena Velez RN - 12/28/2023 11:55 AM EDT Janay from [facility] calls and states that patient was discharged from [place] on 12/27/2023 with the diagnosis of bilateral pleural effusion, LEELA, and Anemia. Jnaay asking if provider willing to follow patient with orders for fci, physical therapy, and occupational therapy. [facility] doctor did sign orders to Janay fish asking if provider will follow orders? If agreeable please give Luis Alfredo call back . Thank you, Helena Velez, RN [facility] History of Present illness Narrative* Krystina Quinones LPN - 12/25/2023 1:45 PM EDT Scan on 12/25/2023 12:52 PM by Danette Houston PA-C: EGD documented in this encounterCommunity [facility] Center08-08-2024 History of Present illness Narrative* Krystina Quinones LPN - 11/15/2023 6:54 AM EDT Scan on 11/14/2023 6:00 PM by Danette Houston PA-C Scan on 11/14/2023 3:59 PM by Danette Houston PA-C: Consultation - Nephrology/Renal documented in this encounterCommunity [facility] Medical Center07-31-2024 History of Present illness Narrative* Alberta Candelaria MA - 11/07/2023 3:32 PM EDT Scan on 11/06/2023 10:54 AM by Danette Houston PA-C: Miscellaneous Clinical Documents Alberta Candelaria MA documented in this encounterCommunity [facility] Medical Center07-29-2024 History of Present illness Narrative* Alberta Candelaria MA - 11/05/2023 4:44 PM EDT Scan on 11/05/2023 2:32 PM by Danette Houston PA-C: Discharge Summary Scan on 11/05/2023 12:03 PM by Danette Houston PA-C: Consultation - Emergency Medicine Scan on 11/05/2023 9:35 AM by Danette Houston PA-C: Consultation - Emergency Medicine Scan on 11/05/2023 9:35 AM by Danette Houston PA-C: Consultation - Emergency Medicine Scan on 11/05/2023 9:35 AM by Danette Houston PA-C: Consultation - Nephrology/Renal Scan on 11/05/2023 9:35 AM by Danette Houston PA-C Scan on 11/05/2023 9:35 AM by Danette Houston PA-C: Consultation - Orthopedics Scan on 11/05/2023 9:35 AM by Danette Houston PA-C: Orthopedics Scan on 11/05/2023 9:35 AM by Danette Houston PA-C: Consultation - ID Patient was admitted on 10/29/2023 and D/C on 11/05/2023 SNF. This is patient's second Discharge this month. Patient was admitted on 10/12/2023 and D/C 10/25/2023 How soon would you like to see patient? Alberta Candelaria MA documented in this encounterCommunity [facility] Medical Center07-29-2024 History of Present illness Narrative* Krystina Quinones LPN - 11/05/2023 8:23 AM EDT Scan on 11/02/2023 5:55 PM by Danette Houston PA-C: EGD Scan on 11/02/2023 5:53 PM by Danette Houston PA-C: Miscellaneous Clinical Documents documented in this encounterCommunity [facility] Center07-26-2024 History of Present illness Narrative* Alberta Candelaria MA - 11/02/2023 12:43 PM EDT Scan on 11/01/2023 8:09 PM by Danette Houston PA-C: Consultation - GI hospital admission - Dr. Beck. Alberta Candelaria MA documented in this encounterCommunity [facility] Medical Center07-25-2024 Telephone encounter Note * Telephone Encounter - Jennyfer Suresh - 11/01/2023 8:46 AM EDT Unable to reach letter sent out [facility] Miscellaneous Notes* Telephone Encounter - Jennyfer Suresh - 11/01/2023 8:46 AM EDT Unable to reach letter sent out * Telephone Encounter - Nuria Sanches - 10/31/2023 4:18 PM EDT LVM for patient to return call to schedule ov appointment Nuria Sanches * Telephone Encounter - Jennyfer Suresh - 10/27/2023 10:10 AM EDT Called patient and left a vm to return our call Jennyfer Suresh * Telephone Encounter - Isa Godoy LPN - 10/23/2023 2:06 PM EDT Message left on voicemail to contact office for biopsy results. Will also need OV with Dr. Jenkins in2 months. Isa Godoy LPN * Telephone Encounter - Richard Jenkins DO - 10/23/2023 1:14 PM EDT I know he is in [facility] right now but can let him know the biopsy results were negative for cancer. That is great news. Please set up office visit with me in about 2 months. Rcihard Jenkins DO documented in this encounterCommunity [facility] Medical Center07-24-2024 History of Present illness Narrative* Alberta Candelaria MA - 10/31/2023 5:00 PM EDT Scan on 10/30/2023 3:12 PM by Danette Houston PA-C: Pulmonary Scan on 10/31/2023 9:39 AM by Danette Houston PA-C: Consultation - Emergency Medicine Patient is still admitted 10/31/2023. Alberta Candelaria MA documented in this encounterCommunity [facility] Center07-24-2024 Telephone encounter Note * Telephone Encounter - Nuria Sanches - 10/31/2023 4:18 PM EDT LVM for patient to return call to schedule ov appointment Nuria Sanches [facility]07-[facility] History of Present illness Narrative* Alberta Candelaria MA - 10/29/2023 2:07 PM EDT Scan on 10/28/2023 10:26 AM by Danette Houston PA-C: Discharge Summary Patient was admitted to the hospital on 10/12/2023 and D/C 10/25/2023 for sepsis secondary acute cystitis with bactermia. Bilateral pleural effusions. Patient was placed on Dialysis. Patient was D/C fci facility - [facility]. Scan on 10/29/2023 6:35 AM by Danette Houston PA-C: Consultation - Emergency Medicine Scan on 10/29/2023 7:27 AM by Danette Houston PA-C: Consultation - Emergency Medicine Patient taken back to [facility] ER on 10/29/2023 for SOB. Patient has volume overload and large left effusion and moderate right effusion. Patient is scheduled to have HD ENRIQUETA. Dr. Greenberg following. Dr. Mann for infectious disease. Patient currently Admitted. Alberta Candelaria MA documented in this encounterCommunity Regional Medical Center07-20-2024 Telephone encounter Note * Telephone Encounter - Jennyfer Suresh - 10/27/2023 10:10 AM EDT Called patient and left a vm to return our call Jennyfer Suresh [facility]07-[facility] Telephone encounter Note* Telephone Encounter - Isa Godoy LPN - 10/23/2023 2:06 PM EDT Message left on voicemail to contact office for biopsy results. Will also need OV with Dr. Jenkins in2 months. Isa Godoy LPN [facility] Telephone encounter Note* Telephone Encounter - Richard Jenkins DO - 10/23/2023 1:14 PM EDT I know he is in [facility] right now but can let him know the biopsy results were negative for cancer. That is great news. Please set up office visit with me in about 2 months. Richard Jenkins DO [facility]07-02-2024 Telephone encounter Note* Telephone Encounter - Lauren West - 10/09/2023 1:36 PM EDT Patient contacted, scheduled appt with Dr. Davey 3:40 pm on 11-27-2023 Lauren West [facility] Work Phone: 1(169) 235-537407-02-2024 Miscellaneous Notes* Telephone Encounter - Lauren West - 10/09/2023 1:36 PM EDT Patient contacted, scheduled appt with Dr. Davey 3:40 pm on 11-27-2023 Lauren West * Telephone Encounter - Alberta Candelaria MA - 10/08/2023 4:34 PM EDT Please assist patient to schedule with ENDO. Alberta Candelaria MA * Telephone Encounter - Yaw Singh MD - 10/08/2023 4:24 PM EDT Consult to Endo placed. * Telephone Encounter - Helena Velez RN - 10/08/2023 4:16 PM EDT Patient notified of results and provider's instructions. Patient verbalizes understanding. Patient states that there are a few times where he slips up and forgets to take medication. Patientis willing to see Endo to discuss some of the new injectables to help lower LDLs. Please place order for this. Helena Velez RN * Telephone Encounter - Christiano Nolasco RN - 10/08/2023 4:08 PM EDT Called and left a voicemail for the Patient to call back and ask for a nurse to receive the providers message. Christiano Nolasco RN * Telephone Encounter - Yaw Singh MD - 10/08/2023 4:02 PM EDT Let patient know UA and electrolyte panel were ok. Lipid panel showed Trigs and HDL were good. LDL elevated at 144 (goal<70). See if he is consistent with taking his Lipitor 80 mg a day and the zetia 10 mg a day. If he is see if he is willing to see Endo to discuss some of the new injectable agents to help lower his LDL? documented in this encounterCommunity [facility] Medical Center07-02-2024 History of Present illness Narrative* Helen Blair MD - 10/09/2023 8:56 AM EDT New Pulmonary Consult Date: October 09, 2023 PRIMARY CARE PHYSICIAN: Yaw Singh MD CHIEF COMPLAINT/REASON: Pleural effusion REFERRING PROVIDER: Jacob Landa is a patient sent by Usha Mcgovern for evaluation of above chief complaint. My final recommendations will be communicated to any requesting health care provider by way of the shared medical record for internal providers or letter via the [employer] for external providers. COMMUNICATION WILL BE SENT VIA SHARED MEDICAL RECORDS OR US MAIL. HISTORY OF PRESENT ILLNESS Jacob Landa is a 68 year old pleasant white male here for above chief complaint. Hx sig for the following: Pulm-related hx: Hx of tiny pulmonary nodules- benign Hx of small b/l pleural effusions Other PMH/PSH: As below, including Hx of distal esophageal adenocarcinoma in 2020 s/p neoadjuvent chemo/radiation followed by partial esophagectomy (Adrián Roger)and gastric pull through in 08/2020 CAD s/p hx of CABG 2002; 2014 and 2018 stents Aortic stenosis s/p TAVR 2019 Smoking hx: Never smoker P/w pleural effusions on initial outpatient evaluation to me on 10/09/23. In 02/2023; pt had rhinosinusitis w/o any CP or SOB and was treated w/ doxycycline/prednisone as OP. Did have small stable b/l pleural effusions on a CT chest around that time done for his esophageal cancer surveillance. Of note, pt was having back pain at the time also; given above hx, had a PET 04/2023 and w/ concernsVBG enhancement, eventually underwent recent bone biopsy of T10 VB- results pending (09/25/23). A CXR was done 04/17/23 (2V), which showed stable partially loculated b/lo effusions w/ mild atelectasis. He reports he had associated pleuritic CP at the time. No fevers. Some TRIPATHI. Symptoms resolved. Ongoing CT surveillance for hx of esophageal cancer continued to demonstrate small to moderate (L>R) b/l pleural effusions w/ associated mild atelectasis., w/ last CT chest 07/2023. CXR 09/13/23 continued to show persistent pleural effusions. He has resumed lasix since then w/ 20mg daily for about 3 weeks and has now been on qother day dosing Currently: Can climb stairs w/o issues SOB only during sex. No cough. No fevers. No leg swelling. Sometimes 15K-20K steps in one day w/o issues Can't lift as much as he used to; no CP. Has been using Lasix 20 mg daily. Had recent ankle swelling but this has improved. [facility] F/U No unintentional weight loss. 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 PAST MEDICAL HISTORY Diagnosis Date Advance directive discussed with patient 02/09/2022 Discussed 02/2022, packets provided AK (actinic keratosis) 09/07/2020 One on the right forearm dorsal, three on the left forearm dorsal and one left side of face hear hair line about eye level. Tx cryo 09/2020 Aortic valve stenosis 07/26/2015 Ascending aorta dilation (HCC) 09/21/2023 09/21/2023: 4.1cm Asthma BPH (benign prostatic hyperplasia) 07/20/2014 Carpal tunnel syndrome of right wrist Closed wedge compression fracture of T10 vertebra (HCC) 07/12/2023 Coronary artery disease involving [place] coronary artery without angina pectoris Seeing Dr. Noland DDD (degenerative disc disease), lumbar 11/04/2019 Esophageal adenocarcinoma (HCC) 08/09/2020 Essential hypertension, benign GERD (gastroesophageal reflux disease) 07/12/2009 History of kidney stones 07/20/2014 Iron deficiency anemia due to chronic blood loss 05/25/2020 Iron malabsorption 05/25/2020 Kidney stone Kyphosis (acquired) (postural) 07/30/2023 Malignant 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) 04/15/2020 Medicare annual wellness visit, subsequent 01/13/2021 Medical B eligibilty date 03/09/19 Date of last exam 01/13/2021 Mixed hyperlipidemia MRSA (methicillin resistant Staphylococcus aureus) 12/01/2016 treated with course of Linezolid beginning 10/29/16 Nonrheumatic aortic valve disorder On tube feeding diet 08/14/2020 History: 65 year old male s/p Adrián Roger esophagectomy, Pyloromyotomy, Jejunostomy tube placement for esophageal adenocarcinoma -Diet: Isosource 1.5 to 50 cc hour with 100 cc water flushes 8 times per day and Bene protein 3 times per day Removed 11/17/2020 Personal history of colonic polyps 12/27/2009 Rn Wound's nodules 03/30/2023 Will try pamelor Pleural effusion 03/11/2021 Stable in f/u studies. 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 4 07/23/2017 Situational depression 08/2014 Upper GI bleed 05/25/2020 Social History Tobacco Use Smoking status: Never Smokeless tobacco: Never Vaping Use Vaping Use: Never used Substance Use Topics Alcohol use: Not Currently Comment: none Drug use: No Family History Problem Relation Age of Onset Cancer Mother OVARIAN AND THYROID CA Breast Cancer Mother Ischemic Heart Disease Father from Cerebral Hemmorrhage age 50 other (mva) Brother Cancer Sister Bone Marrow CA at 59 y/o Ischemic Heart Disease Sister 49 at 57y/o No Known Problems Sister Thyroid Sister Cancer Paternal Aunt cancer of colon other (unkown) Brother MEDS (this may include adjusted meds, historical meds, or meds added this visit): furosemide (LASIX) 20 mg tablet Take 1 tablet by mouth once daily. HYDROcodone-acetaminophen 2.5-325 mg tab Take 1 tablet by mouth every 6 hours as needed for pain. Given at [facility] ER 09/10/23 POTASSIUM ORAL Take by mouth. iv contrast (will be provided with radiology test) CT Chest W -Inject, intravenously, once for 1 dose.No IV access, insert saline lock prior to the beginning of sedation, infusion, injection of imaging exam. Discontinue saline lock post exam. If Pt. has a central line or IVAD, may access for administration according to line specific nursing protocol. Once exam is complete flush line and de-accessaccording to line specific nursing protocol in the CT contrast administration guidelines link. iv contrast (will be provided with radiology test) CT ABD/PEL -Inject, intravenously, once for 1 dose.No IV access, insert saline lock prior to the beginning of sedation, infusion, injection of imaging exam. Discontinue saline lock post exam. If Pt. has a central line or IVAD, may access for administration according to line specific nursing protocol. Once exam is complete flush line and de-accessaccording to line specific nursing protocol in the CT contrast administration guidelines link. enteric contrast (will be provided with radiology test) For CT ABD/PEL W IVCON Routine order Administer, As Directed One Time Only, via Oral, Rectal, both Oral and Rectal, Enteric Tube, Stoma or Indwelling Catheter, Enteric Contrast as designated per enteric contrast guidelines ezetimibe (ZETIA) 10 mg tablet Take 1 tablet by mouth once daily. nystatin (MYCOSTATIN) cream Apply to affected area two times a day. ondansetron (ZOFRAN) 8 mg tablet Take 1 tablet by mouth every 8 hours as needed for nausea/vomiting. pantoprazole DR (PROTONIX) 40 mg tablet Take 1 tablet by mouth two times a day. sodium chloride (SALINE MIST) 0.65 % nasal spray Use 1 Hutchins in the nose as needed for cold/allergysymptoms. atorvastatin (LIPITOR) 80 mg tablet Take 1 tablet by mouth daily at bedtime. aspirin 81 mg chewable tablet Take 1 tablet by mouth once daily. metoprolol tartrate, short acting, (LOPRESSOR) 25 mg tablet Take 1 tablet by mouth twice daily. acetaminophen (TYLENOL) 500 mg tablet Take 500 mg by mouth every 6 hours as needed. amLODIPine (NORVASC) 10 mg tablet Take 1 tablet by mouth once daily. Objective PHYSICAL EXAMINATION BP 133/87 Pulse 75 Temp (Src) 98 (Temporal) Resp 18 Ht 5' 9.75" (1.77m) Wt 199 lb (90.3kg) SpO2 96% BMI 28.75 kg/(m^2). Vitals-reviewed and noted above. General appearance- NAD, Alert HEENT: No conjunctival injection, No oral thrush. Cardiovascular: RRR. Respiratory: No crackles. No wheezes. No rhonchi. No accessory muscle use. Psychiatric: Cooperative, appropriate affect Extremities: No edema, No clubbing or cyanosis Data: All data personally reviewed by me, as referenced above and/or below, including in A/P. 09/21/23 ECHO 09/13/23 CXR 2V- persistent small b/l pleural effusions CONCLUSIONS: - Technically difficult exam due to body habitus. - Exam indication: Routine surveillance of prosthetic valve (>3yrs) - The left ventricle is normal in size. There is mild concentric left ventricular hypertrophy. Left ventricular systolic function is normal. EF = 56 5% (2D 4-ch.) Grade I left ventricular diastolic dysfunction. - The right ventricle is normal in size. Right ventricular systolic function is normal. - The visualized aorta is dilated with a maximal dimension of 4.1 cm. - Bioprosthetic prosthetic aortic valve. There is mild (1+ - 2+) aortic valve regurgitation. The peak gradient is 12 mmHg, the mean gradient is 6 mmHg and the dimensionless valve index is 0.52. 08/03/23 CT chest w/ IV con IMPRESSION: 1. Redemonstrated findings suspicious for skeletal metastatic disease at T10 and T11, with a new minimal superior endplate deformity at T10 that is presumably pathologic. 2. No CT evidence of additional metastatic disease in the chest. 3. Stable postsurgical changes from esophagectomy and gastric pull-through. 4. Unchanged small pulmonary nodules measuring up to 2-3 mm. No new or enlarging pulmonary nodules are identified. Lung parenchyma and airways: Small to moderate-sized bilateral pleural effusions and mild bibasilar atelectasis versus scarring is similar to prior. 2-3 mm subpleural nodules in the right upper lobe posteriorly are unchanged from prior, see series 9 images 35 and 39. Incidental calcified granulomas are noted in the right lower lobe. CXR 04/2023- Partially loculated bilateral pleural effusions are again demonstrated, with associated lower lung atelectasis/infiltrates. No mass lesion identified. No pneumothorax. 04/10/23 PET scan: IMPRESSION: 1. HEAD and NECK: No evidence of focal uptake to suggest FDG avid neoplastic process.. 2. CHEST: Status post distal gastrectomy and gastric pull-through with increased focal uptake to gastric wall thickening and adjacent FDG avid lesion suspicious for possible recurrence. Advise upper endoscopy.. 3. ABDOMEN/PELVIS: No evidence of focal uptake to suggest FDG avid neoplastic process.. 4. EXTREMITIES/SKELETON: Focal uptake in the lateral left eighth rib adjacent to the costochondral junction could be post traumatic, however there is increased uptake in lower endplate of T9 vertebral body which is suspicious for metastasis.. 02/2023 CT chest w/ IV con IMPRESSION: Postoperative changes from distal esophagectomy and gastric pull-up, stable in appearance. Bony demineralization with new mild compression deformity of T10 favored osteoporotic in nature or can be better evaluated with contrast-enhanced MRI. Otherwise no evidence of metastatic disease in the chest. Stable bilateral pleural effusions. Stable 2 mm subpleural nodule in the right upper lobe. CT chest 05/2022 IMPRESSION: Small bilateral pleural effusions similar to prior study. No interval change to suggest metastatic disease. Stable 2-3 RIGHT upper lobe nodule. 02/2022 IMPRESSION: 1. Stable 3 mm right pulmonary nodule. 2. Stable bilateral pleural effusions. 3. Sequela of prior granulomatous exposure. 08/2020 CXR Lungs and pleura: Bilateral pleural effusions noted, with fluid likely tracking along the margin of the right major fissure (and may be partly loculated). No substantial pneumothorax. Stable to slightly increased left lung volume without new consolidation. Small left pleural effusion suspected, with mild blunting of the left lateral costophrenic angle. Immunization History Administered Date(s) Administered influenza (HD-IIV4) vaccine, age 65+ yr, high dose, quadrivalent, PF (FLUZONE HIGH-DOSE) 01/13/2021 02/09/2022 03/30/2023 influenza (IIV3) vaccine, age 3+ yr, trivalent (AFLURIA, FLULAVAL, FLUVIRIN, FLUZONE) 01/28/2018 influenza (IIV3) vaccine, trivalent, PF (AFLURIA, FLUARIX, FLULAVAL, FLUVIRIN, FLUZONE) 01/31/2021 influenza (IIV4) vaccine, age 6 mo - 64 yr, quadrivalent (AFLURIA, FLULAVAL, FLUZONE) 01/26/2015 02/24/2016 01/06/2017 influenza vaccine, unspecified formulation 02/02/2006 02/19/2009 01/21/2010 pneumococcal conjugate (PCV13) vaccine, 13 valent (PREVNAR 13) 01/28/2018 pneumococcal polysaccharide (PPV23) vaccine, 23 valent (PNEUMOVAX 23) 01/21/2010 11/04/2019 tetanus diphtheria pertussis (Tdap) vaccine, age 7+ yr (ADACEL, BOOSTRIX) 07/17/2011 01/07/2018 01/28/2018 Impression/Recommendations - Vaccines reviewed(see record), discussed with patient, and recommended the following only if not contraindicated and not already completed: - Annual seasonal influenza vaccine when appropriate - Pneumococcal vaccines if indicated by current CDC guidelines - Covid-19 vaccine with booster(s) if indicated by CDC guidelines I discussed the plan in detail with the patient. The patient verbalizes understanding and is in agreement. All questions were answered. 1. Pleural effusion - ICD9: 511.9, ICD10: J90 Orders Placed This Encounter XR CHEST 2V FRONTAL/LAT Standing Status: Future Standing Expiration Date: 11/07/2024 - Overall, pt has small b/l pleural effusions w/ associated mild atelectasis dating back years, including effusions noted in 2020. Suspect most likely hydrostatic in s/o underlying HFpEF. Though has known hx of esophageal malignancy, lower suspicion for malignant effusion given chronicity and size and lack of alarming symptoms; no active s/s of associated PNA/infection/empyema concerns. - Could consider at least diagnostic thoracentesis, however, effusions appear too small on last imaging in terms of risk/benefit. Recommend repeat CXR and monitoring for s/s; if large enough, can consider at least OP diagnostic thoracentesis. - Last echo w/o any sig AR (mild only) and does confirm diastolic dysfunction - Pt currently on lasix 20mg daily and has upcoming appt w/ cardiology- clinically euvolemic; likely benefiting from lasix and defer ongoing diuretic management to them FOLLOW-UP: Return in about 6 months (around 04/10/2024). Check CXR in the interim, if enlarging pleural effusions, can arrange for OP diagnostic TACHO hedrick I spent a total of 45 minutes on the date of the service which included preparing to see the patient, [id number] patient care, completing clinical documentation, obtaining and/or reviewing separately obtained history, performing a medically appropriate examination, counseling and educating the pat ient/family/caregiver and ordering medications, tests, or procedures. SIGNATURE: Helen Blair MD [facility] Department of Pulmonary and Critical Care Medicine DATE: October 09, 2023 [facility] Telephone encounter Note * Telephone Encounter - Alberta Candelaria MA - 10/08/2023 4:34 PM EDT Please assist patient to schedule with ENDO. Alberta Candelaria MA [facility] Telephone encounter Note* Telephone Encounter - Yaw Singh MD - 10/08/2023 4:24 PM EDT Consult to Endo placed. [facility] Telephone encounter Note* Telephone Encounter - Helena Velez RN - 10/08/2023 4:16 PM EDT Patient notified of results and provider's instructions. Patient verbalizes understanding. Patient states that there are a few times where he slips up and forgets to take medication. Patientis willing to see Endo to discuss some of the new injectables to help lower LDLs. Please place order for this. Helena Velez RN [facility] Telephone encounter Note* Telephone Encounter - Christiano Nolasco RN - 10/08/2023 4:08 PM EDT Called and left a voicemail for the Patient to call back and ask for a nurse to receive the providers message. Christiano Nolasco RN [facility] Telephone encounter Note* Telephone Encounter - Yaw Singh MD - 10/08/2023 4:02 PM EDT Let patient know UA and electrolyte panel were ok. Lipid panel showed Trigs and HDL were good. LDL elevated at 144 (goal<70). See if he is consistent with taking his Lipitor 80 mg a day and the zetia 10 mg a day. If he is see if he is willing to see Endo to discuss some of the new injectable agents to help lower his LDL? [facility] Telephone encounter Note* Telephone Encounter - Martin Siddiqi RN - 10/08/2023 2:42 PM EDT Instructed pt he will be able to drive himself home after seeing Dr Blair; understanding acknowledged Thank you. Martin Siddiqi RN [facility]07-01[facility]24 Miscellaneous Notes* Telephone Encounter - Martin Siddiqi RN - 10/08/2023 2:42 PM EDT Instructed pt he will be able to drive himself home after seeing Dr Blair; understanding acknowledged Thank you. 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 Call back number above has been verified FOR EMERGENCY CALLS: Shortness of breath, trouble breathing, Oxygen level less than 90%, requiring immediate attention or less than 1 hour response time- route HIGH PRIORITY to nursing Please Route Completed Encounters to nursing documented in this encounter[facility] Telephone encounter Note * Telephone Encounter - Yara AltamiranoFrances vilchis - 10/08/2023 2:34 PM EDT curr Patient Caller Name: Jacob Landa Call Back Number [phone] Reason for Call: Other question Additional Information: patient is coming in for first visit with Pulmonology and requesting a callto advise 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 Call back number above has been verified FOR EMERGENCY CALLS: Shortness of breath, trouble breathing, Oxygen level less than 90%, requiring immediate attention or less than 1 hour response time- route HIGH PRIORITY to nursing Please Route Completed Encounters to nursing [facility] Instructions* Patient Instructions* Yaw Singh MD - 10/05/2023 10:46 AM EDT Please do the blood work and urine tests on or after 10/19/2023 Please get labs and urine test done on or after 03/07/2024 prior to your next visit. documented in this encounterCommunity [facility]06[facility] History of Present illness Narrative* Yaw Singh MD - 10/05/2023 9:51 AM EDT Chief Complaint Patient presents with: F/U 6 months HPI Jacob Landa is a 68 year old male who presents here today for 6 month follow up. Patient indicated that he was in the [facility] ER 09/11/2023 found a kidney stone. They also indicated that he had fluid around his lungs and was given Lasix 20 mg. 20 tablets. Patient finished those but was not given any other instructions on the fluid around the lungs and if he should continue the medication. Patient used to be on Lasix 20 mg and he had additional pills so he has continued taking themedication. Patient indicated that he has notice some ankle swelling. Patient also mentioned he received results regarding his ECHO with dilated Aorta. This information was faxed to [facility] but he has not received a call for them for an appointment. I instructed patient to reach out to them. Patient also had a recent bone biopsy, results are still pending. Patient is scheduled to see Pulmonary on 10/09/2023 for the effusions. Past medical history, appointments, medications, allergies reviewed. Previous Medical History PAST MEDICAL HISTORY Diagnosis Date Advance directive discussed with patient 02/09/2022 Discussed 02/2022, packets provided AK (actinic keratosis) 09/07/2020 One on the right forearm dorsal, three on the left forearm dorsal and one left side of face hear hair line about eye level. Tx cryo 09/2020 Aortic valve stenosis 07/26/2015 Asthma BPH (benign prostatic hyperplasia) 07/20/2014 Carpal tunnel syndrome of right wrist Coronary artery disease involving [place] coronary artery without angina pectoris Seeing Dr. Noland DDD (degenerative disc disease), lumbar 11/04/2019 Esophageal adenocarcinoma (HCC) 08/09/2020 Essential hypertension, benign GERD (gastroesophageal reflux disease) 07/12/2009 History of kidney stones 07/20/2014 Iron deficiency anemia due to chronic blood loss 05/25/2020 Iron malabsorption 05/25/2020 Kidney stone Malignant 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) 04/15/2020 Medicare annual wellness visit, subsequent 01/13/2021 Medical B eligibilty date 03/09/19 Date of last exam 01/13/2021 Mixed hyperlipidemia MRSA (methicillin resistant Staphylococcus aureus) 12/01/2016 treated with course of Linezolid beginning 10/29/16 Nonrheumatic aortic valve disorder On tube feeding diet 08/14/2020 History: 65 year old male s/p Adrián Roger esophagectomy, Pyloromyotomy, Jejunostomy tube placement for esophageal adenocarcinoma -Diet: Isosource 1.5 to 50 cc hour with 100 cc water flushes 8 times per day and Bene protein 3 times per day Removed 11/17/2020 Personal history of colonic polyps 12/27/2009 Rn Wound's nodules 03/30/2023 Will try pamelor Pleural effusion 03/11/2021 Stable in f/u studies. 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 4 07/23/2017 Situational depression 08/2014 Upper GI bleed 05/25/2020 Previous Surgical History PAST SURGICAL HISTORY Procedure Laterality Date ADENOIDECTOMY PRIMARY <AGE 11 Adenoidectomy AORTIC VALVE RECONSTRUCTION 03/03/2019 s/p TAVR BYP OTH/THN VEIN CAROTID-SUBCLAVIAN 2002 Bypass graft carotid subcl COLONOSCOPY FLX DX W/COLLJ SPEC WHEN PFRMD 02/28/2013 COLONOSCOPY FLX DX W/COLLJ SPEC WHEN PFRMD 12/06/2016 repeat in 5 yrs COLONOSCOPY SCRN NOT HIGH RISK 06/01/2020 COLONOSCOPY W/BIOPSY SINGLE/MULTIPLE 02/22/2007 Diminutive polyp distal [id number] ECHO 01/08/2021 EGD 04/15/2020 HEART CATHETERIZATION 12/2018 with 2 stents IMPLANT MESH OPN HERNIA RPR/DEBRIDEMENT CLOSURE 03/06/2007 LAPAROSCOPY SURG RPR INITIAL INGUINAL HERNIA 03/06/2007 umbilical NM CARDIAC STRESS TEST 01/08/2021 PAST SURGICAL HISTORY OF Right 2016 incision and drainage right axillary abscess REPAIR ANORECTAL FISTULA W/PLUG 12/06/2016 REPAIR FIRST ABDOMINAL WALL HERNIA 03/06/2007 right STENT - CORONARY 2014 x3 & x2 12/2018 TONSILLECTOMY PRIMARY/SECONDARY <AGE 11 Tonsillectomy TOT/SUB ESOPHAGECTOMY W/THORACOT 08/09/2020 Adrián Roger esophagectomy, jejunostomy tube placement Family History FAMILY HISTORY Problem Relation Age of Onset Cancer Mother OVARIAN AND THYROID CA Breast Cancer Mother Ischemic Heart Disease Father from Cerebral Hemmorrhage age 50 other (mva) Brother Cancer Sister Bone Marrow CA at 59 y/o Ischemic Heart Disease Sister 49 at 57y/o No Known Problems Sister Thyroid Sister Cancer Paternal Aunt cancer of colon other (unkown) Brother Patient Allergies ALLERGIES Allergen Reactions Seasonal Allergies Other: See Comments Sneezing, watery eyes, runny nose. Current Medications Current Outpatient Medications on File Prior to Visit Medication Sig furosemide (LASIX ORAL) Take by mouth. Given at [facility] ER 09/10/23 HYDROcodone-acetaminophen 2.5-325 mg tab Take 1 tablet by mouth every 6 hours as needed for pain. Given at [facility] ER 09/10/23 POTASSIUM ORAL Take by mouth. nystatin (MYCOSTATIN) cream Apply to affected area two times a day. ondansetron (ZOFRAN) 8 mg tablet Take 1 tablet by mouth every 8 hours as needed for nausea/vomiting. sodium chloride (SALINE MIST) 0.65 % nasal spray Use 1 Hutchins in the nose as needed for cold/allergysymptoms. aspirin 81 mg chewable tablet Take 1 tablet by mouth once daily. acetaminophen (TYLENOL) 500 mg tablet Take 500 mg by mouth every 6 hours as needed. amLODIPine (NORVASC) 10 mg tablet Take 1 tablet by mouth once daily. iv contrast (will be provided with radiology test) CT Chest W -Inject, intravenously, once for 1 dose.No IV access, insert saline lock prior to the beginning of sedation, infusion, injection of imaging exam. Discontinue saline lock post exam. If Pt. has a central line or IVAD, may access for administration according to line specific nursing protocol. Once exam is complete flush line and de-accessaccording to line specific nursing protocol in the CT contrast administration guidelines link. iv contrast (will be provided with radiology test) CT ABD/PEL -Inject, intravenously, once for 1 dose.No IV access, insert saline lock prior to the beginning of sedation, infusion, injection of imaging exam. Discontinue saline lock post exam. If Pt. has a central line or IVAD, may access for administration according to line specific nursing protocol. Once exam is complete flush line and de-accessaccording to line specific nursing protocol in the CT contrast administration guidelines link. enteric contrast (will be provided with radiology test) For CT ABD/PEL W IVCON Routine order Administer, As Directed One Time Only, via Oral, Rectal, both Oral and Rectal, Enteric Tube, Stoma or Indwelling Catheter, Enteric Contrast as designated per enteric contrast guidelines ezetimibe (ZETIA) 10 mg tablet Take 1 tablet by mouth once daily. pantoprazole DR (PROTONIX) 40 mg tablet Take 1 tablet by mouth two times a day. atorvastatin (LIPITOR) 80 mg tablet Take 1 tablet by mouth daily at bedtime. metoprolol tartrate, short acting, (LOPRESSOR) 25 mg tablet Take 1 tablet by mouth twice daily. No current facility-administered medications on file prior to visit. Social History Social History Tobacco Use Smoking status: Never Smokeless tobacco: Never Vaping Use Vaping Use: Never used Substance Use Topics Alcohol use: Not Currently Comment: none Drug use: No Review of Symptoms REVIEW OF SYSTEMS GENERAL: No weight loss, malaise or fevers NECK: Negative for lumps, goiter, pain and significant neck swelling RESPIRATORY: Negative for cough, hemoptysis, wheezing, BROOM MAN. If he exerts himself he will get slightly short of breath. Resolves quickly. No reduced stamina. CARDIOVASCULAR: Negative for chest pain, leg swelling, hypertension, CHF or palpitations GI: No nausea, vomiting, or diarrhea and No heartburn or reflux symptoms ENDOCRINE: Negative for cold or heat intolerance, polyuria, polydipsia and goiter NEURO: No history of headaches, syncope, paralysis, seizures or tremors EXAM: BP 124/82 (BP Site: Left Arm, BP Position: Sitting, BP Cuff Size: Regular Adult) Pulse 80 Resp 20 Wt 90.7 kg (200 lb) BMI 28.90 kg/m Last 5 Encounter Wt Readings: Date: Wt: 10/05/2023 90.7 kg (200 lb) 09/13/2023 88 kg (194 lb) 08/10/2023 88.9 kg (196 lb) 07/12/2023 88 kg (194 lb 0.1 oz) 06/19/2023 88 kg (194 lb) General Appearance: Well appearing, alert, in no acute distress, well-hydrated, well nourished.. Neck: Supple, no adenopathy; thyroid symmetric, normal size, no bruits. Lungs: Lungs clear to auscultation. No wheezing, rhonchi, rales.. Heart: RRR without murmur, gallop, or rubs. No ectopy. Abdomen: Normal abdominal exam, Abdomen soft, non-tender. Bowel sounds normal. No masses, organomegaly. Extremities: No deformities, edema, skin discoloration, Good capillary refill. . Peripheral Pulses: Normal. Health Maintenance List Advance Directive Discussion due on 04/09/2023 RSV Vaccine(1 - 1-dose 60+ series) due on 03/30/2024 Shingrix Vaccine(1 of 2) due on 03/30/2024 Covid-19 Vaccine(2022-24 season) due on 06/18/2024 LDL Cholesterol due on 06/18/2024 Annual PCP Team Chronic Disease Visit due on 09/12/2024 BP Controlled (<130/80) due on 09/12/2024 Colorectal Cancer Screening due on 06/01/2025 Diabetes Screening due on 09/12/2026 DTaP,Tdap,Td Vaccine(4 - Td or Tdap) due on 01/29/2028 Lipid Screening due on 06/18/2028 Spirometry Completed Influenza Vaccine Completed Hepatitis C Screening Completed Pneumococcal Vaccine: 65+ Completed HPV Vaccine Aged Out Data reviewed A/P ASSESSMENT/PLAN: 1. Essential hypertension, benign - ICD9: 401.1, ICD10: I10 (primary diagnosis) - Controlled - Continue current medications - Recommend home blood pressure monitoring, to bring results to next visit - Encouraged sodium restriction, DASH or Mediterranean diet - Recommend regular aerobic exercise check - LIPID PANEL, NONFASTING - BASIC METABOLIC PANEL - URINALYSIS, WITH MICROSCOPIC 2. Mixed hyperlipidemia - ICD9: 272.2, ICD10: E78.2 - await labs - Continue current medications check - Counseled on healthy diet and regular exercise - LIPID PANEL, NONFASTING - URINALYSIS, WITH MICROSCOPIC 3. Gastroesophageal reflux disease, unspecified whether esophagitis present - ICD9: 530.81, ICD10: K21.9 - Continue treatment with Protonix 40 mg QD 4. Coronary artery disease involving [place] coronary artery of [place] heart without angina pectoris- ICD9: 414.01, ICD10: I25.10 Stable and managed per cardiology Check - LIPID PANEL, NONFASTING 5. Ascending aorta dilation (HCC) - ICD9: 447.71, ICD10: I77.810 - patient will be seeing Cardio 6. Iron deficiency anemia due to chronic blood loss - ICD9: 280.0, ICD10: D50.0 - managed per Hematoogy 7. Uncomplicated asthma, unspecified asthma severity, unspecified whether persistent - ICD9: 493.90, ICD10: J45.909 - Mild intermittent asthma stable - Avoidance of triggers recommended 8. Malignant 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) - ICD9: 150.5, ICD10: C15.5 - managed per oncology 9. Esophageal adenocarcinoma (HCC) - ICD9: 150.9, ICD10: C15.9 - as per #8 10. Pleural effusion - ICD9: 511.9, ICD10: J90 - will be seeing Pulm - will keep him on the lasix but at 20 mg every other day. 11. Primary insomnia - ICD9: 307.42, ICD10: F51.01 - stable no changes. 12. Microscopic hematuria - ICD9: 599.72, ICD10: R31.29 Check - URINALYSIS, WITH MICROSCOPIC F/u Dec for Extensive check CMP, Lipid, UA, B12, Mg, CBC prior Yaw Singh MD documented [facility] encounter[facility] Telephone encounter Note * Telephone Encounter - Hayde Summers LPN - 09/21/2023 12:30 PM EDT Spoke with pt and information listed below given. Pt verbalizes understanding. Hayde Summers LPN [facility] Miscellaneous Notes* Telephone Encounter - Hayde Summers LPN - 09/21/2023 12:30 PM EDT Spoke with pt and information listed below given. Pt verbalizes understanding. Hayde Summers LPN * Telephone Encounter - Krystina Quinones LPN - 09/21/2023 11:43 AM EDT Left message for pt to contact office. Please see message below. Office did fax a copy of Echo to [facility]. Krystina Quinones LPN * Telephone Encounter - Usha Mcgovern PA-C - 09/21/2023 10:51 AM EDT Let patient know that US of heart shows tht his shows a dilated aorta. I don't see this noted on his previous echo from 2020. This will need to be monitored by cardiology. We will send them copy of ECHO. When is his follow up with cardio scheduled? documented in this encounterCommunity [facility]06-[facility]24 Telephone encounter Note * Telephone Encounter - Krystina Quinones LPN - 09/21/2023 11:43 AM EDT Left message for pt to contact office. Please see message below. Office did fax a copy of Echo to [facility]. Krystina Quinones LPN [facility] Telephone encounter Note* Telephone Encounter - Usha Mcgovern PA-C - 09/21/2023 10:51 AM EDT Let patient know that US of heart shows tht his shows a dilated aorta. I don't see this noted on his previous echo from 2020. This will need to be monitored by cardiology. We will send them copy of ECHO. When is his follow up with cardio scheduled? [facility] Telephone encounter Note* Telephone Encounter - Sadie Mcgraw - 09/19/2023 5:25 PM EDT Spoke to pt and scheduled biopsy for 09/25/23. [facility] Miscellaneous Notes* Telephone Encounter - Sadie Mcgraw - 09/19/2023 5:25 PM EDT Spoke to pt and scheduled biopsy for 09/25/23. * Telephone Encounter - Renetta Davis MD, PhD - 09/17/2023 5:00 PM EDT RADIOLOGIST REQUEST / APPROVAL FORM STAFF RADIOLOGIST: Gr PROCEDURE TO BE DONE UNDER: CT PROCEDURE REQUESTED: CORE Requested PROCEDURE: Approved TIME SLOT NEEDED: 1 Hour NOTES: T10 vertebral body compression fx - concern for underlying metastatic esophageal cancer. Consider left transpedicular/costovertebral approach. SPECIAL LABS/ PROCESSING: None Pre-procedure labs: CBC: not needed INR: not needed COVID: not needed SIR Bleeding risk category for this procedure: low risk. Reference from [facility] [employer] Worker: [email or web address] STAFF SIGNATURE: Renetta Davis MD DATE: September 17, 2023 TIME: 5:00 PM * Telephone Encounter - Hayley Pickens LPN - 09/17/2023 10:42 AM EDT BX. COORDINATOR INFORMATION LAB RESULTS: PT INR (no units) Date Value 08/06/2020 1.0 APTT (sec) Date Value 08/06/2020 25.5 Platelet Count (k/uL) Date Value 02/13/2023 158 06/02/2021 159 Current Outpatient Medications Medication Sig furosemide (LASIX ORAL) Take by mouth. Given at [facility] ER 09/10/23 HYDROcodone-acetaminophen 2.5-325 mg tab Take 1 tablet by mouth every 6 hours as needed for pain. Given at [facility] ER 09/10/23 POTASSIUM ORAL Take by mouth. iv contrast (will be provided with radiology test) CT Chest W -Inject, intravenously, once for 1 dose.No IV access, insert saline lock prior to the beginning of sedation, infusion, injection of imaging exam. Discontinue saline lock post exam. If Pt. has a central line or IVAD, may access for administration according to line specific nursing protocol. Once exam is complete flush line and de-accessaccording to line specific nursing protocol in the CT contrast administration guidelines link. iv contrast (will be provided with radiology test) CT ABD/PEL -Inject, intravenously, once for 1 dose.No IV access, insert saline lock prior to the beginning of sedation, infusion, injection of imaging exam. Discontinue saline lock post exam. If Pt. has a central line or IVAD, may access for administration according to line specific nursing protocol. Once exam is complete flush line and de-accessaccording to line specific nursing protocol in the CT contrast administration guidelines link. enteric contrast (will be provided with radiology test) For CT ABD/PEL W IVCON Routine order Administer, As Directed One Time Only, via Oral, Rectal, both Oral and Rectal, Enteric Tube, Stoma or Indwelling Catheter, Enteric Contrast as designated per enteric contrast guidelines ezetimibe (ZETIA) 10 mg tablet Take 1 tablet by mouth once daily. nystatin (MYCOSTATIN) cream Apply to affected area two times a day. ondansetron (ZOFRAN) 8 mg tablet Take 1 tablet by mouth every 8 hours as needed for nausea/vomiting. pantoprazole DR (PROTONIX) 40 mg tablet Take 1 tablet by mouth two times a day. sodium chloride (SALINE MIST) 0.65 % nasal spray Use 1 Hutchins in the nose as needed for cold/allergysymptoms. atorvastatin (LIPITOR) 80 mg tablet Take 1 tablet by mouth daily at bedtime. aspirin 81 mg chewable tablet Take 1 tablet by mouth once daily. metoprolol tartrate, short acting, (LOPRESSOR) 25 mg tablet Take 1 tablet by mouth twice daily. acetaminophen (TYLENOL) 500 mg tablet Take 500 mg by mouth every 6 hours as needed. amLODIPine (NORVASC) 10 mg tablet Take 1 tablet by mouth once daily. No current facility-administered medications for this visit. ALLERGIES Allergen Reactions Seasonal Allergies Other: See Comments Sneezing, watery eyes, runny nose. FILMS SENT TO WORKSTATION: GUIDELINES FOR HOLDING ANTI-PLATELET AND ANTI- COAGULATION THERAPY: none on file NURSE SIGNATURE: Hayley Pickens LPN DATE: September 17, 2023 TIME: 10:42 AM * Telephone Encounter - Jada Hernández - 09/17/2023 9:06 AM EDTSummary: Bone Biopsy RADIOLOGY CALL CENTER INTAKE DATE: 09/17/23 TIME: 9:10 am REQUESTING STAFF: Dr. Richard Jenkins PHONE/PAGER: [phone] SPECIFICS OF THE REQUEST: (Please be as detailed as possible. If request is lymph node biopsy, specify LOCATION of the node if possible): biopsy T10 vertebrae SPECIAL REQUESTS: TISSUE SAMPLE, LABWORK: N/A IS THIS REQUEST PART OF A RESEARCH PROTOCOL: No MEDICAL DIAGNOSIS: 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] TYPE AND DATE OF THE EXAM THAT IS THE BASIS OF THE REQUEST: MRI Date: 09/10/23 IMAGING: [facility] documented in this encounterCommunity [facility]06-10-[facility]24 Telephone encounter Note * Telephone Encounter - Renetta Davis MD, PhD - 09/17/2023 5:00 PM EDT RADIOLOGIST REQUEST / APPROVAL FORM STAFF RADIOLOGIST: Simón PROCEDURE TO BE DONE UNDER: CT PROCEDURE REQUESTED: CORE Requested PROCEDURE: Approved TIME SLOT NEEDED: 1 Hour NOTES: T10 vertebral body compression fx - concern for underlying metastatic esophageal cancer. Consider left transpedicular/costovertebral approach. SPECIAL LABS/ PROCESSING: None Pre-procedure labs: CBC: not needed INR: not needed COVID: not needed SIR Bleeding risk category for this procedure: low risk. Reference from [facility] [employer] Worker: [email or web address] STAFF SIGNATURE: Renetta Davis MD DATE: September 17, 2023 TIME: 5:00 PM [facility] Work Phone: [phone]) 437-450206-10-2024 Telephone encounter Note* Telephone Encounter - Carla Izaguirre OCCA - 09/17/2023 2:50 PM EDT TC to patient who is informed of below. Patient is agreeable to seeing Pulm. Please contact patient to assist in scheduling. Thank you. PERRY Rivera [facility] Miscellaneous Notes* Telephone Encounter - Carla Izaguirre OCCA - 09/17/2023 2:50 PM EDT TC to patient who is informed of below. Patient is agreeable to seeing Pulm. Please contact patient to assist in scheduling. Thank you. Carla Strait, OCCA * Telephone Encounter - Usha Mcgovern PA-C - 09/17/2023 2:36 PM EDT Let patient know that xray does show effusions but notes that this is something that has been present for a while. Looking back he had effusions on scan in Apr and July. I would like to have him see pulmonology for further evaluation. Continue with Cardiology and Echo as well. Usha Mcgovern PA-C documented in this encounterCommunity [facility]06-10-2024 Telephone encounter Note * Telephone Encounter - Usha Mcgovern PA-C - 09/17/2023 2:36 PM EDT Let patient know that xray does show effusions but notes that this is something that has been present for a while. Looking back he had effusions on scan in Apr and July. I would like to have him see pulmonology for further evaluation. Continue with Cardiology and Echo as well. Usha Mcgovern PA-C [facility] Telephone encounter Note* Telephone Encounter - Hayley Pickens LPN - 09/17/2023 10:42 AM EDT BX. COORDINATOR INFORMATION LAB RESULTS: PT INR (no units) Date Value 08/06/2020 1.0 APTT (sec) Date Value 08/06/2020 25.5 Platelet Count (k/uL) Date Value 02/13/2023 158 06/02/2021 159 Current Outpatient Medications Medication Sig furosemide (LASIX ORAL) Take by mouth. Given at [facility] ER 09/10/23 HYDROcodone-acetaminophen 2.5-325 mg tab Take 1 tablet by mouth every 6 hours as needed for pain. Given at [facility] ER 09/10/23 POTASSIUM ORAL Take by mouth. iv contrast (will be provided with radiology test) CT Chest W -Inject, intravenously, once for 1 dose.No IV access, insert saline lock prior to the beginning of sedation, infusion, injection of imaging exam. Discontinue saline lock post exam. If Pt. has a central line or IVAD, may access for administration according to line specific nursing protocol. Once exam is complete flush line and de-accessaccording to line specific nursing protocol in the CT contrast administration guidelines link. iv contrast (will be provided with radiology test) CT ABD/PEL -Inject, intravenously, once for 1 dose.No IV access, insert saline lock prior to the beginning of sedation, infusion, injection of imaging exam. Discontinue saline lock post exam. If Pt. has a central line or IVAD, may access for administration according to line specific nursing protocol. Once exam is complete flush line and de-accessaccording to line specific nursing protocol in the CT contrast administration guidelines link. enteric contrast (will be provided with radiology test) For CT ABD/PEL W IVCON Routine order Administer, As Directed One Time Only, via Oral, Rectal, both Oral and Rectal, Enteric Tube, Stoma or Indwelling Catheter, Enteric Contrast as designated per enteric contrast guidelines ezetimibe (ZETIA) 10 mg tablet Take 1 tablet by mouth once daily. nystatin (MYCOSTATIN) cream Apply to affected area two times a day. ondansetron (ZOFRAN) 8 mg tablet Take 1 tablet by mouth every 8 hours as needed for nausea/vomiting. pantoprazole DR (PROTONIX) 40 mg tablet Take 1 tablet by mouth two times a day. sodium chloride (SALINE MIST) 0.65 % nasal spray Use 1 Hutchins in the nose as needed for cold/allergysymptoms. atorvastatin (LIPITOR) 80 mg tablet Take 1 tablet by mouth daily at bedtime. aspirin 81 mg chewable tablet Take 1 tablet by mouth once daily. metoprolol tartrate, short acting, (LOPRESSOR) 25 mg tablet Take 1 tablet by mouth twice daily. acetaminophen (TYLENOL) 500 mg tablet Take 500 mg by mouth every 6 hours as needed. amLODIPine (NORVASC) 10 mg tablet Take 1 tablet by mouth once daily. No current facility-administered medications for this visit. ALLERGIES Allergen Reactions Seasonal Allergies Other: See Comments Sneezing, watery eyes, runny nose. FILMS SENT TO WORKSTATION: GUIDELINES FOR HOLDING ANTI-PLATELET AND ANTI- COAGULATION THERAPY: none on file NURSE SIGNATURE: Hayley Pickens LPN DATE: September 17, 2023 TIME: 10:42 AM [facility] Miscellaneous Notes* Telephone Encounter - Helena Urrutia - 09/17/2023 9:29 AM EDT [employer], request has been sent to [facility]. This PSS also called [facility] and they will triage and call the patient. Patient is aware to expect a call from [facility] to schedule. Helena Urrutia * Telephone Encounter - Isa Godoy LPN - 09/17/2023 8:44 AM EDT Spoke with pt. Regarding results of recent <RI and the suspicion of of possible cancer. Dr. Jenkins would like to have him scheduled at [facility] or [facility] for imaging guided biopsy of the T10 vertebrae . Pt. Voiced understanding. PSS please reach out to get pt. Scheduled. Isa Godoy LPN * Telephone Encounter - Richard Jenkins DO - 09/14/2023 6:12 PM EDT When I last saw him, his back was feeling much better from the injury he sustained last fall. However repeat MRI is more suspicious for possible cancer. I would like to have him scheduled at [facility] or [facility] for imaging guided biopsy of the T10 vertebrae. Richard Jenkins DO documented in this encounterCommunity [facility]06-10-2024 Telephone encounter Note * Telephone Encounter - Helena Urrutia - 09/17/2023 9:29 AM EDT [employer], request has been sent to [facility]. This PSS also called [facility] and they will triage and call the patient. Patient is aware to expect a call from [facility] to schedule. Helena Urrutia [facility] Telephone encounter Note* Telephone Encounter - Jada Hernández - 09/17/2023 9:06 AM EDTSummary: Bone Biopsy RADIOLOGY CALL CENTER INTAKE DATE: 09/17/23 TIME: 9:10 am REQUESTING STAFF: Dr. Richard Jenkins PHONE/PAGER: [phone] SPECIFICS OF THE REQUEST: (Please be as detailed as possible. If request is lymph node biopsy, specify LOCATION of the node if possible): biopsy T10 vertebrae SPECIAL REQUESTS: TISSUE SAMPLE, LABWORK: N/A IS THIS REQUEST PART OF A RESEARCH PROTOCOL: No MEDICAL DIAGNOSIS: 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] TYPE AND DATE OF THE EXAM THAT IS THE BASIS OF THE REQUEST: MRI Date: 09/10/23 IMAGING: [facility] Telephone encounter Note* Telephone Encounter - Isa Godoy LPN - 09/17/2023 8:44 AM EDT Spoke with pt. Regarding results of recent Pt. Voiced understanding. PSS please reach out to get pt. Scheduled. Isa Godoy LPN [facility] Telephone encounter Note* Telephone Encounter - Richard Jenkins DO - 09/14/2023 6:12 PM EDT When I last saw him, his back was feeling much better from the injury he sustained last fall. However repeat MRI is more suspicious for possible cancer. I would like to have him scheduled at [facility] or [facility] for imaging guided biopsy of the T10 vertebrae. Richard Jenkins DO [facility] Telephone encounter Note* Telephone Encounter - Alberta Candelaria MA - 09/14/2023 1:19 PM EDT Patient notified and voiced understanding. Alberta Candelaria MA [facility] Miscellaneous Notes* Telephone Encounter - Alberta Candelaria MA - 09/14/2023 1:19 PM EDT Patient notified and voiced understanding. Alberta Candelaria MA * Telephone Encounter - Usha Mcgovern PA-C - 09/14/2023 11:04 AM EDT Let patient know that his kidney function is slightly decreased. Patient needs to push fluids and recheck early next week. I need to make sure the lasix isn't causing his kidney function to worsen. His urine showed blood still. Small amount of WBC. Have him monitor for symptoms of UTI. The blood and WBC is still likely a result of the kidney stones. Recheck urine in 2 weeks. I'm waiting on chest xray yet. Usha Mcgovern PA-C documented in this encounterCommunity [facility] Center06-07-2024 Telephone encounter Note * Telephone Encounter - Usha Mcgovern PA-C - 09/14/2023 11:04 AM EDT Let patient know that his kidney function is slightly decreased. Patient needs to push fluids and recheck early next week. I need to make sure the lasix isn't causing his kidney function to worsen. His urine showed blood still. Small amount of WBC. Have him monitor for symptoms of UTI. The blood and WBC is still likely a result of the kidney stones. Recheck urine in 2 weeks. I'm waiting on chest xray yet. Usha Mcgovern PA-C [facility] Telephone encounter Note* Telephone Encounter - Usha Mcgovern PA-C - 09/13/2023 8:13 AM EDT Noted. [facility] Miscellaneous Notes* Telephone Encounter - Usha Mcgovern PA-C - 09/13/2023 8:13 AM EDT Noted. * Telephone Encounter - Yaw Singh MD - 09/12/2023 5:04 PM EDT ER provider placed on lasix and potassium. Told him to f/u with PCP and cardio (he sees Ludin) Would at least get pulse ox and if less then 90% send him to ER. Check AP/lat chest x-ray, BNP, BMP, Echo Advise him he needs to see Ludin. * Telephone Encounter - Alberta Candlearia MA - 09/12/2023 4:15 PM EDT Patient was seen in the ER 09/11/2023 for abdomen pain and DX with Kidney Stone was placed on lasix, Hydrocodone for pain, Potassium. CT also showed Bilateral Pleural Effusion. I set up patient tomorrow with Usha to review. Asked how patient is doing. He indicated that he still having pain in left lower abdomen. Alberta Candelaria MA documented in this encounterCommunity [facility] Center06-06-2024 History of Present illness Narrative* lAix Hong, RT(R) - 09/13/2023 8:00 AM EDT Radiology Service Progress Note PATIENT NAME: Jacob Landa DATE OF SERVICE: September 13, 2023 TIME: 8:06 AM PATIENT IDENTITY VERIFICATION COMPLETED USING TWO (2) IDENTIFIERS: Name and Date of confirmedby patient verbally. FALL SCREENING: Has the patient had 2 falls in the last year or 1 fall with injury or currently using an Ambulatory Assistive Device (Walker, Cane, Wheelchair, Crutches, etc.)? No PATIENT GENDER DATA: Male PATIENT RELEVANT IMPLANT DATA REVIEWED: Yes PATIENT PRESENTS WITH AN IMPLANTABLE OR ATTACHED SQL SSIS DEVELOPER: No RADIOLOGY DEPARTMENT: General X-ray: Exam(s) Completed: Chest X-Ray PERIPHERAL IV DATA: Not applicable SIGNED BY: RT Jake(Bea) September 13, 2023 8:06 AM documented in this encounterCommunity [facility]* Patient Instructions* Usha Mcgovern PA-C - 09/13/2023 7:26 AM EDT Please contact cardiology to make sure they are aware of recent diagnosis of pleural effusions. documented in this encounterCommunity [facility] History of Present illness Narrative* Usha Mcgovern PA-C - 09/13/2023 7:20 AM EDT Chief Complaint Patient presents with: ER F/U: [facility] ER 09/10/23 HPI Jacob Landa is a 68 year old male who presents here today for ER Follow Up.. Patient went to ER on 09/11/2023 due to left flank pain. Work up included, labs and CT scan. CT showed multiple renal stones. Incidentally it also noted bilateral pleural effusions. Since discharge from hospital he says he has not had any additional flank pain. Denies significant or consistent shortness of breath. Has noted some TRIPATHI with excess exertion over the past couple months. States he has an appointment with cardiology within the next month but not sure of exact date. Alsohas to call their office back later today. Past medical history, appointments, medications, allergies reviewed. Previous Medical History PAST MEDICAL HISTORY Diagnosis Date Advance directive discussed with patient 02/09/2022 Discussed 02/2022, packets provided AK (actinic keratosis) 09/07/2020 One on the right forearm dorsal, three on the left forearm dorsal and one left side of face hear hair line about eye level. Tx cryo 09/2020 Aortic valve stenosis 07/26/2015 Asthma BPH (benign prostatic hyperplasia) 07/20/2014 Carpal tunnel syndrome of right wrist Coronary artery disease involving [place] coronary artery without angina pectoris Seeing Dr. Noland DDD (degenerative disc disease), lumbar 11/04/2019 Esophageal adenocarcinoma (HCC) 08/09/2020 Essential hypertension, benign GERD (gastroesophageal reflux disease) 07/12/2009 History of kidney stones 07/20/2014 Iron deficiency anemia due to chronic blood loss 05/25/2020 Iron malabsorption 05/25/2020 Kidney stone Malignant 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) 04/15/2020 Medicare annual wellness visit, subsequent 01/13/2021 Medical B eligibilty date 03/09/19 Date of last exam 01/13/2021 Mixed hyperlipidemia MRSA (methicillin resistant Staphylococcus aureus) 12/01/2016 treated with course of Linezolid beginning 10/29/16 Nonrheumatic aortic valve disorder On tube feeding diet 08/14/2020 History: 65 year old male s/p [place] esophagectomy, Pyloromyotomy, Jejunostomy tube placement for esophageal adenocarcinoma -Diet: Isosource 1.5 to 50 cc hour with 100 cc water flushes 8 times per day and Bene protein 3 times per day Removed 11/17/2020 Personal history of colonic polyps 12/27/2009 Rn Wound's nodules 03/30/2023 Will try pamelor Pleural effusion 03/11/2021 Stable in f/u studies. 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 4 07/23/2017 Situational depression 08/2014 Upper GI bleed 05/25/2020 Previous Surgical History PAST SURGICAL HISTORY Procedure Laterality Date ADENOIDECTOMY PRIMARY <AGE 11 Adenoidectomy AORTIC VALVE RECONSTRUCTION 03/03/2019 s/p TAVR BYP OTH/THN VEIN CAROTID-SUBCLAVIAN 2002 Bypass graft carotid subcl COLONOSCOPY FLX DX W/COLLJ SPEC WHEN PFRMD 02/28/2013 COLONOSCOPY FLX DX W/COLLJ SPEC WHEN PFRMD 12/06/2016 repeat in 5 yrs COLONOSCOPY SCRN NOT HIGH RISK 06/01/2020 COLONOSCOPY W/BIOPSY SINGLE/MULTIPLE 02/22/2007 Diminutive polyp distal [id number] ECHO 01/08/2021 EGD 04/15/2020 HEART CATHETERIZATION 12/2018 with 2 stents IMPLANT MESH OPN HERNIA RPR/DEBRIDEMENT CLOSURE 03/06/2007 LAPAROSCOPY SURG RPR INITIAL INGUINAL HERNIA 03/06/2007 umbilical NM CARDIAC STRESS TEST 01/08/2021 PAST SURGICAL HISTORY OF Right 2016 incision and drainage right axillary abscess REPAIR ANORECTAL FISTULA W/PLUG 12/06/2016 REPAIR FIRST ABDOMINAL WALL HERNIA 03/06/2007 right STENT - CORONARY 2014 x3 & x2 12/2018 TONSILLECTOMY PRIMARY/SECONDARY <AGE 11 Tonsillectomy TOT/SUB ESOPHAGECTOMY W/THORACOT 08/09/2020 [facility] esophagectomy, jejunostomy tube placement Family History FAMILY HISTORY Problem Relation Age of Onset Cancer Mother OVARIAN AND THYROID CA Breast Cancer Mother Ischemic Heart Disease Father from Cerebral Hemmorrhage age 50 other (mva) Brother Cancer Sister Bone Marrow CA at 59 y/o Ischemic Heart Disease Sister 49 at 57y/o No Known Problems Sister Thyroid Sister Cancer Paternal Aunt cancer of colon other (unkown) Brother Patient Allergies ALLERGIES Allergen Reactions Seasonal Allergies Other: See Comments Sneezing, watery eyes, runny nose. Current Medications Current Outpatient Medications on File Prior to Visit Medication Sig furosemide (LASIX ORAL) Take by mouth. Given at [facility] ER 09/10/23 HYDROcodone-acetaminophen 2.5-325 mg tab Take 1 tablet by mouth every 6 hours as needed for pain. Given at [facility] ER 09/10/23 POTASSIUM ORAL Take by mouth. ezetimibe (ZETIA) 10 mg tablet Take 1 tablet by mouth once daily. nystatin (MYCOSTATIN) cream Apply to affected area two times a day. ondansetron (ZOFRAN) 8 mg tablet Take 1 tablet by mouth every 8 hours as needed for nausea/vomiting. pantoprazole DR (PROTONIX) 40 mg tablet Take 1 tablet by mouth two times a day. sodium chloride (SALINE MIST) 0.65 % nasal spray Use 1 Hutchins in the nose as needed for cold/allergysymptoms. atorvastatin (LIPITOR) 80 mg tablet Take 1 tablet by mouth daily at bedtime. aspirin 81 mg chewable tablet Take 1 tablet by mouth once daily. metoprolol tartrate, short acting, (LOPRESSOR) 25 mg tablet Take 1 tablet by mouth twice daily. acetaminophen (TYLENOL) 500 mg tablet Take 500 mg by mouth every 6 hours as needed. amLODIPine (NORVASC) 10 mg tablet Take 1 tablet by mouth once daily. iv contrast (will be provided with radiology test) CT Chest W -Inject, intravenously, once for 1 dose.No IV access, insert saline lock prior to the beginning of sedation, infusion, injection of imaging exam. Discontinue saline lock post exam. If Pt. has a central line or IVAD, may access for administration according to line specific nursing protocol. Once exam is complete flush line and de-accessaccording to line specific nursing protocol in the CT contrast administration guidelines link. iv contrast (will be provided with radiology test) CT ABD/PEL -Inject, intravenously, once for 1 dose.No IV access, insert saline lock prior to the beginning of sedation, infusion, injection of imaging exam. Discontinue saline lock post exam. If Pt. has a central line or IVAD, may access for administration according to line specific nursing protocol. Once exam is complete flush line and de-accessaccording to line specific nursing protocol in the CT contrast administration guidelines link. enteric contrast (will be provided with radiology test) For CT ABD/PEL W IVCON Routine order Administer, As Directed One Time Only, via Oral, Rectal, both Oral and Rectal, Enteric Tube, Stoma or Indwelling Catheter, Enteric Contrast as designated per enteric contrast guidelines No current facility-administered medications on file prior to visit. Social History Social History Tobacco Use Smoking status: Never Smokeless tobacco: Never Vaping Use Vaping Use: Never used Substance Use Topics Alcohol use: Not Currently Comment: none Drug use: No Review of Symptoms REVIEW OF SYSTEMS GENERAL: No weight loss, malaise or fevers NECK: Negative for lumps, goiter, pain and significant neck swelling RESPIRATORY: Negative for cough, hemoptysis, wheezing, COPD, dyspnea or shortness of breath CARDIOVASCULAR: Negative for chest pain, leg swelling, CHF or palpitations SEE HPI EXAM: BP 114/76 (BP Site: Left Arm, BP Position: Sitting, BP Cuff Size: Large Adult) Pulse 85 Temp 36.4 C (97.6 F) (Tympanic) Resp 16 Wt 88 kg (194 lb) SpO2 99% BMI 28.04 kg/m General Appearance: Well appearing, alert, in no acute distress, well-hydrated, well nourished.. Neck: Supple, no adenopathy; thyroid symmetric, normal size, no bruits. Lungs: Lungs clear to auscultation. No wheezing, rhonchi, rales.. Heart: RRR without murmur, gallop, or rubs. No ectopy. Extremities: No deformities, edema, skin discoloration, clubbing or cyanosis. Good capillary refill. . Peripheral Pulses: Normal. Health Maintenance List Advance Directive Discussion due on 04/09/2023 RSV Vaccine(1 - 1-dose 60+ series) due on 03/30/2024 Shingrix Vaccine(1 of 2) due on 03/30/2024 Covid-19 Vaccine( - 2022- season) due on 06/18/2024 BP Controlled (<130/80) due on 03/30/2024 LDL Cholesterol due on 06/18/2024 Annual PCP Team Chronic Disease Visit due on 09/12/2024 Colorectal Cancer Screening due on 06/01/2025 Diabetes Screening due on 06/18/2026 DTaP,Tdap,Td Vaccine(4 - Td or Tdap) due on 01/29/2028 Lipid Screening due on 06/18/2028 Spirometry Completed Influenza Vaccine Completed Hepatitis C Screening Completed Pneumococcal Vaccine: 65+ Completed HPV Vaccine Aged Out Data reviewed ASSESSMENT/PLAN: 1. Pleural effusion - ICD9: 511.9, ICD10: J90 (primary diagnosis) Check xray and labs today Set up echo Continue lasix Patient advised to call Cardiology - ECHO - PERFLUTREN LIPID MICROSPHERES 1.1 MG/ML INJECTION IN NS 10 ML - SODIUM CHLORIDE 0.9 % (FLUSH) INJECTION SYRINGE - XR CHEST 2V FRONTAL/LAT - NT PRO BNP - BASIC METABOLIC PANEL 2. Nephrolithiasis - ICD9: 592.0, ICD10: N20.0 Symptoms resolved Will check UA Discussed possible red flags and when to seek medical attention. - URINALYSIS, WITH MICROSCOPIC 3. TRIPATHI (dyspnea on exertion) - ICD9: 786.09, ICD10: R06.09 As #1 - ECHO - PERFLUTREN LIPID MICROSPHERES 1.1 MG/ML INJECTION IN NS 10 ML - SODIUM CHLORIDE 0.9 % (FLUSH) INJECTION SYRINGE - XR CHEST 2V FRONTAL/LAT - NT PRO BNP - BASIC METABOLIC PANEL 4. Coronary artery disease involving [place] coronary artery of [place] heart without angina pectoris- ICD9: 414.01, ICD10: I25.10 Has been stable overall. Patient to follow up with cardio. 5. Essential hypertension, benign - ICD9: 401.1, ICD10: I10 - Controlled - Continue current medications - Recommend home blood pressure monitoring, to bring results to next visit - Encouraged sodium restriction, DASH or Mediterranean diet - Recommend regular aerobic exercise Usha Mcgovern PA-C documented in this encounterCommunity [facility] Telephone encounter Note * Telephone Encounter - Yaw Singh MD - 09/12/2023 5:04 PM EDT ER provider placed on lasix and potassium. Told him to f/u with PCP and cardio (he sees Ludin) Would at least get pulse ox and if less then 90% send him to ER. Check AP/lat chest x-ray, BNP, BMP, Echo Advise him he needs to see Ludin. [facility] Telephone encounter Note* Telephone Encounter - Albreta Candelaria MA - 09/12/2023 4:15 PM EDT Patient was seen in the ER 09/11/2023 for abdomen pain and DX with Kidney Stone was placed on lasix, Hydrocodone for pain, Potassium. CT also showed Bilateral Pleural Effusion. I set up patient tomorrow with Usha to review. Asked how patient is doing. He indicated that he still having pain in left lower abdomen. Alberta Candelaria MA [facility] History of Present illness Narrative* Gloria Sinclair, (R) - 09/10/2023 8:40 AM EDT Radiology Service Progress Note DATE OF SERVICE: September 10, 2023 TIME: 9:05 AM PATIENT IDENTITY VERIFICATION COMPLETED USING TWO (2) STANDARD IDENTIFIERS: Name and Date of confirmed by patient verbally. FALL SCREENING: Has the patient had 2 falls in the last year or 1 fall with injury or currently using an Ambulatory Assistive Device (Walker, Cane, Wheelchair, Crutches, etc.)? No PATIENT GENDER DATA: Male PATIENT RELEVANT IMPLANT DATA REVIEWED: Yes PATIENT PRESENTS WITH AN IMPLANTABLE OR ATTACHED SQL SSIS DEVELOPER: No ALLERGIES: Reviewed and unchanged CONTRAST ALLERGY: NO. EXAM: MRI - CONTRAST TYPE: GROUP II PERIPHERAL IV DATA: Ambulatory: A peripheral IV was started in the Right antecubital site with a Angio cath: 22 gauge. RADIOLOGY DEPARTMENT: MR; Exam(s) Completed: Spine: Thoracic spine SIGNATURE: RT Arlen(Bea) PATIENT NAME: Jacob Landa DATE: September 10, 2023 TIME: 9:05 AM documented in this encounterCommunity [facility]05-[facility]24 History of Present illness Narrative* Tye Flores PT - 09/06/2023 5:14 PM EDT Images from the original note were not included. Episode Visit Count: 2 Therapist That Will Accept/Oversee The Plan Of Care: Tye Flores PT Start of Care Date: 07/30/23 Onset Date: 11/07/22 Plan of Care Certification Date: 09/06/23 Next Certification Due Date: 10/11/23 Patient Identified by Name and Date of : Yes REHABILITATION AND SPORTS THERAPY PHYSICAL THERAPY PROGRESS REPORT PLAN OF CARE UPDATE: Assessment: Jacob Landa demonstrates improvements in core strength, pain intensity and level of independence with the HEP. He has progressed toward goals. Patient continues to present with impairments in independence in exercise and strength that interfere with nothing . Current prognosis is Good due to: current objective clinical presentation, good support system/ coping skills . He will benefit from continued skilled therapy services to meet the updated goals for this plan of care as noted below. Goals updated 09/06/23 Goals for Episode of Care: created on 07/30/23 through 10/22/23 Independent in home exercises. - MET Patient will decrease pain rating by 2 points to meet minimal clinical important difference for numeric pain rating scale. - MET Pt will demo LB strength of 5/5 for improved tolerance to lifting and carrying objects in 12 weeks or less - Progressing Pt will demo abdominal strength of 5/5 for improved spine stability and decrease pain with lifting and carrying objects - Progressing Patient Goals: Improve his ability to work and improve core strength Patient Goals: Improve his ability to work and improve core strength Planned Interventions, Frequency, and Duration: 1x every other week, 4 weeks Total Number of Visits Planned: 2 Patient to be seen for Therapeutic exercise (38679), Neuromuscular re-education (54809), Manual therapy (14719), Therapeutic activities (75835), Self-fdc management (52503), Patient/Family/Caregiver Education PLAN FOR NEXT VISIT: Core strengthening SUBJECTIVE: Has not been in pain after he passed his kidney stones. No pain in the back now. Willing to continue with the PT to strengthen.. Patient Goals: Improve his ability to work and improve core strength Functional Limitations: nothing Prior Level of Function: Independent without limitations Intake Information: Prescription present Pain: Pain Pain Level: 0 Pain Location: Back PROMIS Scales 09/06/2023 07/30/2023 Higher is Better Phys Func - Score 50 (within normal limits) 42 (mild dysfunction) Phys Func - Percentile 50 21 Self-Eff Symptom - Score 66 (High) 44 (Average) Self-Eff Symptom - Percentile 95 27 T-scores: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 lifting most anything tends to hurt his back more. Symptoms are intermittent. He woke up this morning feeling great and standing up straight and mentioned that he "did a little jig" in his house to celebrate how well he felt, and then shortly thereafter, he started to feel fatigued as if he had been carrying something too heavy. Does not describe severe or unmanageable pain or nighttime pain in the spine He has a significant history of esophageal adenocarcinoma and 2022 CT, MRI, PET scan suggested malignancy at T9. He saw Dr. Rafael Astorga in April 2023 and these studies were reviewed. Nonsurgical treatment was suggested. EXAM Highlights: The most pertinent exam finding is that he does not have any point tenderness along the length of his spinous processes in the axial spine. This is specifically true at his fracture/bony tumor area in the mid and lower thoracic region. There is some mild increase in kyphotic curvature and he is able to self-correct most of the way milana walks. There is muscular tenderness mildly throughout the thoracic and cervical region and to a lesser extent in the lumbar and sacral region today. This is true bilaterally and is roughly equal on each side. I cannot detect any neurologic deficit regarding reflexes, strength, sensation Is not appear that he has any spinal cord malfunction or signs of myelopathy today. IMAGING: We reviewed the radiologist's findings and/or images from the following studies: 02/13/2023 CT chest, abdomen, pelvis 03/27/2023 MRI thoracic spine 04/10/2023 PET scan 05/01/2023 scoliosis x-rays Specifically on the MRI study, it appears that he has mild to moderate anterior wedge compression fracture affecting primarily the superior endplate of T10 and a bony tumor in the left paracentral region of the inferior portion of T9. T1 and STIR images show similar signal in the upper portion of the T10 fracture. 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 The fracture may have resulted from his injury to his back in October 2022. At this time from a spine vantage point, I think we could support his overall axial spine pain and wellbeing with some cautious PT. I wrote out a prescription that specifically outlining his underlying issues and cautioned against forward bending with lifting but emphasized postural training and strengthening for him. The patient will follow-up with his oncologist, Dr. Richard Jenkins in the near future. I will forward this note to him as well. Plan : REFERAL FOR SERVICES: -Physical therapy will be instituted. FOLLOW-UP: -The patient is instructed to return as needed. This document has been created with the use of voice recognition technology. It may contain inaccuracies: (e.g. misspellings, inaccurate syntax or word sense) that have escaped review. Time spent: 50 minutes today with this patient visit. This includes [id number] time, review of chart records regarding conservative care history, spine- pertinent imaging, and communication/care coordination with referring provider, problem-specific history-taking and counseling/education regarding treatment options. cc: Richard Jenkins [address] [facility] [id number] Results of consultation to be transmitted via electronic medical record for those providers who practice within [facility] or with access to [employer] via [facility], or via letter. ######################################################################## CHIEF COMPLAINT: Patient is here for the lower back pain, pain radiates to the middle back. Sometimes pain goes up to the upper back, between the shoulders blades. Has this pain for 6 months. Has injury last summer, when he was hit in his back pretty bad. No pain at this moment, but sometimes pain can go up to 10/10. Lifting stuff will be painful. 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 Spinal Injections: He has not gotten prior spinal injections. Other: None Current Outpatient Medications Medication Sig Dispense Refill ezetimibe (ZETIA) 10 mg tablet Take 1 tablet by mouth once daily. 90 tablet 1 nystatin (MYCOSTATIN) cream Apply to affected area two times a day. 30 g 1 ondansetron (ZOFRAN) 8 mg tablet Take 1 tablet by mouth every 8 hours as needed for nausea/vomiting. [address] (PROTONIX) 40 mg tablet Take 1 tablet by mouth two times a day. 180 tablet 3 sodium chloride (SALINE MIST) 0.65 % nasal spray Use 1 Hutchins in the nose as needed for cold/allergysymptoms. 30 mL 1 atorvastatin (LIPITOR) 80 mg tablet Take 1 tablet by mouth daily at bedtime. 90 tablet 1 aspirin 81 mg chewable tablet Take 1 tablet by mouth once daily. metoprolol tartrate, short acting, (LOPRESSOR) 25 mg tablet Take 1 tablet by mouth twice daily. acetaminophen (TYLENOL) 500 mg tablet Take 500 mg by mouth every 6 hours as needed. amLODIPine (NORVASC) 10 mg tablet Take 1 tablet by mouth once daily. 30 tablet 2 No current facility-administered medications for this visit. Allergies: Seasonal Allergies PAST MEDICAL HISTORY Diagnosis Date Advance directive discussed with patient 02/09/2022 Discussed 02/2022, packets provided AK (actinic keratosis) 09/07/2020 One on the right forearm dorsal, three on the left forearm dorsal and one left side of face hear hair line about eye level. Tx cryo 09/2020 Aortic valve stenosis 07/26/2015 Asthma BPH (benign prostatic hyperplasia) 07/20/2014 Carpal tunnel syndrome of right wrist Coronary artery disease involving [place] coronary artery without angina pectoris Seeing Dr. Ludin GALVEZ (degenerative disc disease), lumbar 11/04/2019 Esophageal adenocarcinoma (HCC) 08/09/2020 Essential hypertension, benign GERD (gastroesophageal reflux disease) 07/12/2009 History of kidney stones 07/20/2014 Iron deficiency anemia due to chronic blood loss 05/25/2020 Iron malabsorption 05/25/2020 Kidney stone Malignant 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) 04/15/2020 Medicare annual wellness visit, subsequent 01/13/2021 Medical B eligibilty date 03/09/19 Date of last exam 01/13/2021 Mixed hyperlipidemia MRSA (methicillin resistant Staphylococcus aureus) 12/01/2016 treated with course of Linezolid beginning 10/29/16 Nonrheumatic aortic valve disorder On tube feeding diet 08/14/2020 History: 65 year old male s/p [place] Roger esophagectomy, Pyloromyotomy, Jejunostomy tube placement for esophageal adenocarcinoma -Diet: Isosource 1.5 to 50 cc hour with 100 cc water flushes 8 times per day and Bene protein 3 times per day Removed 11/17/2020 Personal history of colonic polyps 12/27/2009 Rn Wound's nodules 03/30/2023 Will try pamelor Pleural effusion 03/11/2021 Stable in f/u studies. 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 4 07/23/2017 Situational depression 08/2014 Upper GI bleed 05/25/2020 PAST SURGICAL HISTORY Procedure Laterality Date ADENOIDECTOMY PRIMARY <AGE 11 Adenoidectomy AORTIC VALVE RECONSTRUCTION 03/03/2019 s/p TAVR BYP OTH/THN VEIN CAROTID-SUBCLAVIAN 2002 Bypass graft carotid subcl COLONOSCOPY FLX DX W/COLLJ SPEC WHEN PFRMD 02/28/2013 COLONOSCOPY FLX DX W/COLLJ SPEC WHEN PFRMD 12/06/2016 repeat in 5 yrs COLONOSCOPY SCRN NOT HIGH RISK 06/01/2020 COLONOSCOPY W/BIOPSY SINGLE/MULTIPLE 02/22/2007 Diminutive polyp distal [id number] ECHO 01/08/2021 EGD 04/15/2020 HEART CATHETERIZATION 12/2018 with 2 stents IMPLANT MESH OPN HERNIA RPR/DEBRIDEMENT CLOSURE 03/06/2007 LAPAROSCOPY SURG RPR INITIAL INGUINAL HERNIA 03/06/2007 umbilical NM CARDIAC STRESS TEST 01/08/2021 PAST SURGICAL HISTORY OF Right 2016 incision and drainage right axillary abscess REPAIR ANORECTAL FISTULA W/PLUG 12/06/2016 REPAIR FIRST ABDOMINAL WALL HERNIA 03/06/2007 right STENT - CORONARY 2014 x3 & x2 12/2018 TONSILLECTOMY PRIMARY/SECONDARY <AGE 11 Tonsillectomy TOT/SUB ESOPHAGECTOMY W/THORACOT 08/09/2020 [place] esophagectomy, jejunostomy tube placement Social History Tobacco Use Smoking status: Never Smokeless tobacco: Never Vaping Use Vaping Use: Never used Substance Use Topics Alcohol use: Not Currently Comment: none Drug use: No FAMILY HISTORY Problem Relation Age of Onset Cancer Mother OVARIAN AND THYROID CA Breast Cancer Mother Ischemic Heart Disease Father from Cerebral Hemmorrhage age 50 other (mva) Brother Cancer Sister Bone Marrow CA at 59 y/o Ischemic Heart Disease Sister 49 at 57y/o No Known Problems Sister Thyroid Sister Cancer Paternal Aunt cancer of colon other (unkown) Brother REVIEW OF SYSTEMS: Constitutional: (-) Fever/Chills (-) Night Sweats (-) Weight Gain (-) Weight Loss Gastrointestinal: (+) Abdominal Pain (+) Diarrhea (-) Constipation (+) Heart Burn Cardiovascular: (-) Chest Pain (-) Palpitations (-) Lightheadedness (+) Hx Heart Surgery/ 5 Stent Respiratory: (-) Short of Breath (+) Cough sometimes (+) Snoring Neurologic: (-) Headache (-) Blurry Vision (-) Fainting Skin: (-) Rashes (-) Itching (-) Other Lesions Psychiatric: (-) Depression (-) Anxiety (-) Suicidal Thoughts Genitourinary: (+) Frequency (-) Urgency Endocrine: (-) Thyroid Disorder (-) Diabetes Hematologic: (-) Prolonged Bleeding (+) Easy Bruising ################################################################################ ################################################# PHYSICAL EXAM: Blood pressure 124/69, pulse 77, height 177.2 cm (5' 9.75"), weight 88 kg (194 lb 0.1 oz), SpO2 100%. Body mass index is 28.04 kg/m . General: Patient is a(n) average historian. The patient appears approximately the recorded age and is sitting comfortably in the examining room. The patient is tall in stature and is average weight in appearance. This individual has no difficulty arising from a sitting position and does not have difficulty acquiring a full, upright position when standing. Station and Gait: flexed posture and antalgic gait leaning forward The patient is able to but has difficulty in attempting to walk in a tandem gait. MENTAL STATUS EXAMINATION: The patient was well groomed and casually attired. The patient had excellent eye contact and rapport was easy to establish. The patient appeared to be alert and oriented in all spheres. The patient'soverall medical judgment appeared to be fair.The patient's motivation for treatment was judged based on today's encounter to be good. SPINE: Lumbar Lordosis: Decreased/flattened Thoracic Kyphosis: Increased RANGE OF MOTION: Flexion: normal, as expected for age and weight Pain: No Extension: normal, as expected for age and weight Pain: Yes, axial pain Lateral Bending: Right normal, as expected for age and weight Pain: Yes, axial pain Left normal, as expected for age and weight Pain: Yes, axial pain PALPATION TENDERNESS: Moderate tenderness at: cervical spine, thoracic spine, and lumbar region Hyperesthesia present: No Regional symptoms present: No Increased pain with axial loading: No Distraction: Normal Pain responses: appropriate NEUROLOGIC EXAM: MOTOR: Walk on Toes: Right: Yes Left: Yes Walk on Heels: Right: Yes Left: Yes Requires verbal cues to minimize cog-wheel or give-way resistance: No Hip Flexor R: 5/5 L: 5/5 Hip Abductor R: 5/5 L: 5/5 Hip Adductor R: 5/5 L: 5/5 Knee Extension R: 5/5 L: 5/5 Foot Dorsiflexion R: 5/5 L: 5/5 Foot Plantar Flexion R: 5/5 L: 5/5 Ext Hallicus Longus R: 5/5 L: 5/5 Toe Extensors R: 5/5 L: 5/5 SENSATION to Light Touch: Lumbar: L2-S1 symmetrically normal. REFLEXES: Lower Extremity: All Lower Extremity reflexes symmetrically normal. Clonus: R: 0 beats/Normal L: 0 beats/Normal Babinski Sign: Negative bilaterally. Upper Extremity: All Upper Extremity reflexes symmetrically normal. Bajwa's Sign: Negative bilaterally. VASCULAR: Skin appearance: Right: Warm/pink Left: Warm/pink Capillary refill: Right: brisk Left: brisk ADDITIONAL MUSCULOSKELETAL EXAM: HIP/PELVIS EXAM: Tenderness over the PSIS: Right: Yes Left: Yes Greater Trochanteric pain: Right: No Left: No SPECIAL TESTS: Straight Leg Raise: negative bilaterally Contralateral Straight Leg Raise: negative bilaterally IMAGING STUDIES: See discussion above documented in this encounterCommunity [facility]-2024 Miscellaneous Notes* Telephone Encounter - Idalia Mccollum LPN - 07/02/2023 9:55 AM EDT Pt notified of results and provider message. Pt voiced understanding. Idalia Mccollum LPN * Telephone Encounter - Tata Granado LPN - 07/02/2023 9:17 AM EDT Left message to call office. 07/02/2023 9:18 AM. Tata Granado LPN * Telephone Encounter - Usha Mcgovern PA-C - 07/02/2023 8:05 AM EDT Let patient know that his gallbladder is normal. HIDA scan does show reflux. US shows some kidney stones but nonobstructive pattern. Similar to what was seen in CT scan back inNov. I would continue with the back specialist and follow up with with gastro as well if symptoms continue. Usha Mcgovern PA-C documented in this encounterCommunity [facility] Center03-22-2024 Miscellaneous Notes* Telephone Encounter - Yaw Singh MD - 06/29/2023 9:44 AM EDT Noted. No new advise. * Telephone Encounter - Socrates Leonard RN - 06/29/2023 8:50 AM EDT Phoned patient and given provider's message below with verbalized understanding. Patient reports he has missed a lot of doses of his atorvastatin. For a while he wasn't able to swallow it. Then they came up with an idea to cut it in half, and discovered he could swallow it that way, and has been taking it. Reports he didn't even know he was suppose to be taking the zetia, but did just receive the Rx and plans to start taking it now. Patient agreeable to call back with any concerns. * Telephone Encounter - Yaw Singh MD - 06/28/2023 7:25 PM EDT Let patient know his lipid panel is ok except his LDL is elevated at 136 (goal<70 and used to be89). Make sure he is taking the atorvastatin 80 mg a day and the Zetia 10 mg a day. All his other labs including his liver function tests and pancreatic function labs were ok. documented in this encounterCommunity [facility] Center03-21-2024 History of Present illness Narrative* Pita Palumbo, RT(R) - 06/28/2023 12:00 PM EDT RADIOLOGY SERVICE PROGRESS NOTE SERVICE DATE: 06/28/2023 SERVICE TIME: 11:15 AM PATIENT IDENTITY VERIFICATION COMPLETED USING TWO (2) STANDARD IDENTIFIERS: Name and Date of confirmed by patient verbally FALL SCREENING: Has the patient had 2 falls in the last year or 1 fall with injury or currently using an Ambulatory Assistive Device (Walker, Cane, Wheelchair, Crutches, etc.)? No PATIENT GENDER DATA: .male ALLERGIES: Reviewed and unchanged MEDICATIONS REVIEWED: No PATIENT RELEVANT IMPLANT DATA REVIEWED: Not Applicable PATIENT PRESENTS WITH AN IMPLANTABLE OR ATTACHED SQL SSIS DEVELOPER: No CREATININE: Creatinine Date Value Ref Range Status 06/19/2023 1.04 0.73 - 1.22 mg/dL Final 02/13/2023 0.95 0.73 - 1.22 mg/dL Final 08/22/2022 1.07 0.73 - 1.22 mg/dL Final Estimated Glomerular Filtration Rate Date Value Ref Range Status 06/19/2023 78 >=60 mL/min/1.73m Final Comment: Estimated Glomerular Filtration Rate (eGFR) is calculated using the 2020 CKD-EPI creatinine equation. This equation utilizes serum creatinine, sex, and age as parameters. The creatinine assay has traceable calibration to isotope dilution- mass spectrometry. Refer to KDIGO guidelines for clinical interpretation. In patients with unstable renal function, e.g. those with acute kidney injury, the eGFRmay not accurately reflect actual GFR. eGFR- Date Value Ref Range Status 06/02/2021 >60 Final P.O.C.T. RESULTS: N/A June 28, [address] PERFORMED: No IV SITE: Ambulatory: A peripheral IV was started in the Left antecubital site with a Angio cath: 24gauge. POST EXAM PIV STATUS: Discontinued PROCEDURE TYPE: NM INJECT: Hepatobiliary with Gallbladder EF. 5.8 mCi Tc99m CHOLETEC. CCK 1.76 micrograms intravenous at 12:50. ADMINISTRATION TIME: 11:35 PATIENT DISCHARGED TO: Ambulatory patient, left CT department area. A Diagnostic radioactive procedure has taken place, with no further precautions necessary other than routine body substance precautions. More information regarding radiation safety can be found usingthis link: [email or web address] SIGNATURE: RT Chan(Bea) PATIENT NAME: Jacob Landa DATE: June 28, 2023 TIME: 13:25 PM PAGER/CONTACT #: documented in this encounterCommunity [facility] Center03-21-2024 History of Present illness Narrative* Rosa Arteaga RDMS - 06/28/2023 10:45 AM EDT Radiology Service Progress Note PATIENT NAME: Jacob Landa DATE OF SERVICE: June 28, 2023 TIME: 12:40 PM PATIENT IDENTITY VERIFICATION COMPLETED USING TWO (2) IDENTIFIERS: Name and Date of confirmedby patient verbally. FALL SCREENING: Has the patient had 2 falls in the last year or 1 fall with injury or currently using an Ambulatory Assistive Device (Walker, Cane, Wheelchair, Crutches, etc.)? No PATIENT GENDER DATA: Male PATIENT RELEVANT IMPLANT DATA REVIEWED: Not Applicable PATIENT PRESENTS WITH AN IMPLANTABLE OR ATTACHED SQL SSIS DEVELOPER: No RADIOLOGY DEPARTMENT: Ultrasound PERIPHERAL IV DATA: Not applicable SIGNED BY: Rosa Arteaga RDMS June 28, 2023 12:40 PM documented in this encounterCommunity [facility] Center03-14-2024 Miscellaneous Notes* Telephone Encounter - Yaw Singh MD - 06/21/2023 5:05 PM EDT The following approved medication requests have been transmitted electronically. Requested Prescriptions Signed Prescriptions Disp Refills ezetimibe (ZETIA) 10 mg tablet 90 tablet 1 Sig: Take 1 tablet by mouth once daily. Authorizing Provider: YAW SINGH MD * Telephone Encounter - Hayde Summers LPN - 06/21/2023 2:47 PM EDT Pt checked and he does not have the Zetia at home. Requesting a new rx be sent to the pharmacy. Hayde Summers LPN * Telephone Encounter - Krystina Quinones LPN - 06/20/2023 2:29 PM EDT Advised pt of Dr Singh's message. Pt thought he was still taking this but when this nurse mentioned last refill he wasn't sure so later when pt gets home he will check his mediations and will call back in the morning to let Dr Singh know if he is taking this. Krystina Quinones LPN * Telephone Encounter - Yaw Singh MD - 06/20/2023 12:43 PM EDT His LDL chol was better a year ago. See if he still takes the Zetia (ezetimibe) 10 mg a day. He wason it in the past but the last refill from us was 02/21/2022 for 6 months. * Telephone Encounter - Alberta Candelaria MA - 06/20/2023 10:11 AM EDT Contacted patient and he has been taking 80 mg of lipitor almost daily. Large pill sometimes hard to swollen. Cardiology has been prescribing the medication. Alberta Candelaria MA * Telephone Encounter - Yaw Singh MD - 06/19/2023 9:17 PM EDT Let patient know his PSA, B12 and Mg were ok. His lipid panel showed an elevated LDL at 136. With having heart disease the goal is to be less then 70. His current 10 year risk of a cardiovascular event is 18-20%. I would advise we get him on lipitor 10 mg a day. documented in this encounterCommunity [facility] Center03-12-2024 History of Present illness Narrative* Usha Mcgovern PA-C - 06/19/2023 7:11 AM EDT Chief Complaint Patient presents with: Back Pain: X 6 months HPI Jacob Landa is a 68 year old male who presents here today for above concerns. Patient reports low back pain for the past 6 months. Has been low back and radiating to either side. Seems to be getting worse. In the last couple months he is having more abdominal pain and right flank pain. In the past week he is getting sick whenever he eats. Reports it's worse when eating greasy foods or meat. States that this increasing stomach and right sided back pain is what triggered him to make this appointment. Recent EGD was reported as good. Past medical history, appointments, medications, allergies reviewed. Previous Medical History PAST MEDICAL HISTORY Diagnosis Date Advance directive discussed with patient 02/09/2022 Discussed 02/2022, packets provided AK (actinic keratosis) 09/07/2020 One on the right forearm dorsal, three on the left forearm dorsal and one left side of face hear hair line about eye level. Tx cryo 09/2020 Aortic valve stenosis 07/26/2015 Asthma BPH (benign prostatic hyperplasia) 07/20/2014 Carpal tunnel syndrome of right wrist Coronary artery disease involving [place] coronary artery without angina pectoris Seeing Dr. Noland DDD (degenerative disc disease), lumbar 11/04/2019 Esophageal adenocarcinoma (HCC) 08/09/2020 Essential hypertension, benign GERD (gastroesophageal reflux disease) 07/12/2009 History of kidney stones 07/20/2014 Iron deficiency anemia due to chronic blood loss 05/25/2020 Iron malabsorption 05/25/2020 Kidney stone Malignant 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) 04/15/2020 Medicare annual wellness visit, subsequent 01/13/2021 Medical B eligibilty date 03/09/19 Date of last exam 01/13/2021 Mixed hyperlipidemia MRSA (methicillin resistant Staphylococcus aureus) 12/01/2016 treated with course of Linezolid beginning 10/29/16 Nonrheumatic aortic valve disorder On tube feeding diet 08/14/2020 History: 65 year old male s/p [place] esophagectomy, Pyloromyotomy, Jejunostomy tube placement for esophageal adenocarcinoma -Diet: Isosource 1.5 to 50 cc hour with 100 cc water flushes 8 times per day and Bene protein 3 times per day Removed 11/17/2020 Personal history of colonic polyps 12/27/2009 Rn Wound's nodules 03/30/2023 Will try pamelor Pleural effusion 03/11/2021 Stable in f/u studies. 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 4 07/23/2017 Situational depression 08/2014 Upper GI bleed 05/25/2020 Previous Surgical History PAST SURGICAL HISTORY Procedure Laterality Date ADENOIDECTOMY PRIMARY <AGE 11 Adenoidectomy AORTIC VALVE RECONSTRUCTION 03/03/2019 s/p TAVR BYP OTH/THN VEIN CAROTID-SUBCLAVIAN 2003 Bypass graft carotid subcl COLONOSCOPY FLX DX W/COLLJ SPEC WHEN PFRMD 02/28/2013 COLONOSCOPY FLX DX W/COLLJ SPEC WHEN PFRMD 12/06/2016 repeat in 5 yrs COLONOSCOPY SCRN NOT HIGH RISK 06/01/2020 COLONOSCOPY W/BIOPSY SINGLE/MULTIPLE 02/22/2007 Diminutive polyp distal [id number] ECHO 01/08/2021 EGD 04/15/2020 HEART CATHETERIZATION 12/2018 with 2 stents IMPLANT MESH OPN HERNIA RPR/DEBRIDEMENT CLOSURE 03/06/2007 LAPAROSCOPY SURG RPR INITIAL INGUINAL HERNIA 03/06/2007 umbilical NM CARDIAC STRESS TEST 01/08/2021 PAST SURGICAL HISTORY OF Right 2016 incision and drainage right axillary abscess REPAIR ANORECTAL FISTULA W/PLUG 12/06/2016 REPAIR FIRST ABDOMINAL WALL HERNIA 03/06/2007 right STENT - CORONARY 2015 x3 & x2 12/2018 TONSILLECTOMY PRIMARY/SECONDARY <AGE 11 Tonsillectomy TOT/SUB ESOPHAGECTOMY W/THORACOT 08/09/2020 [place] esophagectomy, jejunostomy tube placement Family History FAMILY HISTORY Problem Relation Age of Onset Cancer Mother OVARIAN AND THYROID CA Breast Cancer Mother Ischemic Heart Disease Father from Cerebral Hemmorrhage age 50 other (mva) Brother Cancer Sister Bone Marrow CA at 59 y/o Ischemic Heart Disease Sister 49 at 57y/o No Known Problems Sister Thyroid Sister Cancer Paternal Aunt cancer of colon other (unkown) Brother Patient Allergies ALLERGIES No Known Allergies Current Medications Current Outpatient Medications on File Prior to Visit Medication Sig pantoprazole DR (PROTONIX) 40 mg tablet Take 1 tablet by mouth two times a day. sodium chloride (SALINE MIST) 0.65 % nasal spray Use 1 Hutchins in the nose as needed for cold/allergysymptoms. atorvastatin (LIPITOR) 80 mg tablet Take 1 tablet by mouth daily at bedtime. ezetimibe (ZETIA) 10 mg tablet Take 1 tablet by mouth once daily. aspirin 81 mg chewable tablet Take 1 tablet by mouth once daily. metoprolol tartrate, short acting, (LOPRESSOR) 25 mg tablet Take 1 tablet by mouth twice daily. acetaminophen (TYLENOL) 500 mg tablet Take 500 mg by mouth every 6 hours as needed. amLODIPine (NORVASC) 10 mg tablet Take 1 tablet by mouth once daily. nortriptyline (PAMELOR) 10 mg capsule Take 1 capsule by mouth daily at bedtime. enteric contrast (will be provided with radiology test) For CT ABD/PEL W IVCON Routine order Administer, As Directed One Time Only, via Oral, Rectal, both Oral and Rectal, Enteric Tube, Stoma or Indwelling Catheter, Enteric Contrast as designated per enteric contrast guidelines No current facility-administered medications on file prior to visit. Social History Social History Tobacco Use Smoking status: Never Smokeless tobacco: Never Vaping Use Vaping Use: Never used Substance Use Topics Alcohol use: Not Currently Comment: none Drug use: No Review of Symptoms REVIEW OF SYSTEMS See hpi EXAM: BP 122/82 (BP Site: Left Arm, BP Position: Sitting, BP Cuff Size: Large Adult) Pulse 70 Temp 36.2 C (97.1 F) Resp 18 Wt 88 kg (194 lb) BMI 28.65 kg/m General Appearance: Well appearing, alert, in no acute distress, well-hydrated, well nourished.. Skin: erythematous rash under right breast.. Abdomen: RUQ tender to palp with fullness noted. No pain other quadrants. No pain in other quadrants. No rebound.. Health Maintenance List LDL Cholesterol due on 02/20/2023 Advance Directive Discussion due on 04/09/2023 RSV Vaccine(1 - 1-dose 60+ series) due on 03/30/2024 Shingrix Vaccine(1 of 2) due on 03/30/2024 Covid-19 Vaccine(2022- season) due on 06/18/2024 Annual PCP Team Chronic Disease Visit due on 03/30/2024 BP Controlled (<130/80) due on 03/30/2024 Colorectal Cancer Screening due on 06/01/2025 Diabetes Screening due on 02/13/2026 Lipid Screening due on 02/20/2027 DTaP,Tdap,Td Vaccine(4 - Td or Tdap) due on 01/29/2028 Spirometry Completed Influenza Vaccine Completed Hepatitis C Screening Completed Pneumococcal Vaccine: 65+ Completed HPV Vaccine Aged Out Data reviewed ASSESSMENT/PLAN: 1. RUQ pain - ICD9: 789.01, ICD10: R10.11 (primary diagnosis) Differential Diagnosis includes Gastritis, Gall bladder colic/cholelithiasis, and pancreatitis - Work up with RUQ ultrasound and HIDA scan if US is normal. Check labs - US ABD RIGHT UPPER QUADRANT - AMYLASE BLD - LIPASE BLD - COMP METABOLIC PANEL - NM HEPATOBILIARY W EF AND/OR RX 2. Nausea - ICD9: 787.02, ICD10: R11.0 As above - US ABD RIGHT UPPER QUADRANT - AMYLASE BLD - LIPASE BLD - COMP METABOLIC PANEL - NM HEPATOBILIARY W EF AND/OR RX 3. Chronic midline low back pain without sciatica - ICD9: 724.2, 338.29, ICD10: M54.50, G89.29 I suspect unrelated to newer abdominal pain. Consider Physical Therapy 4. Intertrigo - ICD9: 695.89, ICD10: L30.4 Start nystatin barrier cream. Discussed possible red flags and when to seek medical attention. Usha Mcgovern PA-C documented in this encounterCommunity [facility] Center03-11-2024 Miscellaneous Notes* Telephone Encounter - Sabrina Hernandez - 06/18/2023 1:48 PM EDT Called patient and scheduled him for first available in [place]. Sabrina Crouch * Telephone Encounter - Isa Godoy LPN - 06/18/2023 12:30 PM EDT Spoke with pt. Informed no evidence of cancer in the biopsies. So, all the workup so far has not shown any clear evidence of recurrent cancer which is great. Dr. Jenkins would like to make a referral to the spine center at [place] for him. Pt. Voiced understanding. Informed he has appt. Tomorrow with Usha Mcgovern because the "storm horses "are worse ,instructed to keep that appt. To help him get some relief, but our PSS will still make referral to spine center in [place]. That is fine with pt. Isa Godoy LPN * Telephone Encounter - Richard Jenkins DO - 06/18/2023 12:20 PM EDT There was no evidence of cancer in the biopsies. So, all the workup so far has not shown any clear evidence of recurrent cancer which is great. I would like to make a referral to the spine center at [place] for him. Richard Jenkins DO * Telephone Encounter - Isa Godoy LPN - 06/15/2023 10:40 AM EST Pt. Instructed to contact Dr. Bocanegra office for pathology results. Isa Godoy LPN * Telephone Encounter - Helena Urrutia - 06/15/2023 10:06 AM EST Patient called in as he hasn't heard from anyone with the results of the most recent pathology. Additionally he commented on occasionally having a "charley horse" in his back on and off. Please advise. Helena Urrutia documented in this encounterCommunity [facility] Center02-27-2024 NoteHNO ID: [id number] Author: KRISTINE HARRIS APRN.MICROBIOLOGY QUALITY CONTROL TECHNICIAN Service: Nursing Author Type: Nurse Patcher Type: Anesthesia Procedure Notes Filed: 06/05/2023 14:10 Note Text: ANESTHESIOLOGY PROCEDURE NOTE Airway General Information Procedure Start Time/Medication Administration: 06/05/2023 2:03 PM Patient location during procedure: OR Timeout Performed Pre-procedure: timeout performed Consent Obtained: Yes Patient identity confirmed: arm band and patient sedated or unresponsive Staffing Anesthesiologist: Cong Chew MD MICROBIOLOGY QUALITY CONTROL TECHNICIAN: Kristine Harris APRN.MICROBIOLOGY QUALITY CONTROL TECHNICIAN Performed by: MICROBIOLOGY QUALITY CONTROL TECHNICIAN Indications and Patient Condition Indications for airway management: anesthesia Preoxygenated: yes anesthesia circuit Patient position: sniffing Method: asleep Cricoid Pressure: No Manual In-Line Stabilization: No Difficult Mask: No Final Airway Details Final airway type: endotracheal airway Final Endotracheal Airway: ETT Cuffed: yes Successful intubation technique: direct laryngoscopy Blade: Lawson Blade size: #4 ETT size (mm): 7.5 Measured from: lips Measurement (cm): 23 Placement verified by: chest auscultation and capnometry Cormack-Lehane Classification: grade IIb - view of arytenoids or posterior of glottis only Number of attempts at approach: 1 Failed airway: no Unrecognized esophageal intubation: no Airway not difficult SIGNATURE: Kristine Harris APRN.MICROBIOLOGY QUALITY CONTROL TECHNICIAN PATIENT NAME: Jacob Landa DATE: June 05, 2023 TIME: 2:10 PM CSN: [id number] [facility]02[facility]27-[facility] History and physical note* Aruna Mendez APRN.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 - 06/05/2023 1:00 PM EST HISTORY AND PHYSICAL EXAMINATION SERVICE DATE: 06/05/2023 SERVICE TIME: 12:28 PM PRIMARY CARE PHYSICIAN: Yaw Singh MD REASON FOR VISIT: The reason for this visit is To perform a comprehensive review of the patients past medical history, assess their current health status and obtain any additional testing required based on anesthesia guidelines. To assess and identify potential anesthesia problems, particularly those that may suggest potential complications or contraindications to the planned procedure. The patient has the following: ACTIVE PROBLEM LIST Essential Hypertension, Benign Mixed Hyperlipidemia Asthma Gerd (Gastroesophageal Reflux Disease) Personal History of Colonic Polyps Bph (Benign Prostatic Hyperplasia) History of Kidney Stones Aortic Valve Stenosis Situational Depression Screening for Colon Cancer S/P Cabg X 4 Ddd (Degenerative Disc Disease), Lumbar Malignant Neoplasm of Lower Third of Esophagus (Hcc) Iron Deficiency Anemia Due to Chronic Blood Loss Iron Malabsorption Esophageal Adenocarcinoma (Hcc) Coronary Artery Disease Involving [place] Coronary Artery Without Angina Pectoris Ak (Actinic Keratosis) Medicare Annual Wellness Visit, Subsequent Pleural Effusion Advance Directive Discussed With Patient Medication Management Prostate Disorder Decreased Sexual Desire Rn Wound's Nodules Primary Insomnia Pre-Op Exam Subjective CHIEF COMPLAINT: Preoperative Examination HPI: Patient present to [facility] for the above procedure. Patient had EGD on 05/07/23, now having follow up on the results. EGD in early 2020 - distal esophageal adenocarcinoma. Hi last chemo was june 23, 2020. After that he has surveillance. Patient reports occasional N/V/D. Denies any abdominal pain. Denies any melena, hematochezia, or hematemesis. Patient denies any other problems at this time. Denies any family history of Colon cancer or other Gastric ca. Patient agreed to planned procedure. METS: Climb a flight of stairs or walk up a hill (5.50 METs) Patient denies any CP/SOB with above activity. PAST MEDICAL HISTORY Diagnosis Date Advance directive discussed with patient 02/09/2022 Discussed 02/2022, packets provided AK (actinic keratosis) 09/07/2020 One on the right forearm dorsal, three on the left forearm dorsal and one left side of face hear hair line about eye level. Tx cryo 09/2020 Aortic valve stenosis 07/26/2015 Asthma BPH (benign prostatic hyperplasia) 07/20/2014 Carpal tunnel syndrome of right wrist Coronary artery disease involving [place] coronary artery without angina pectoris Seeing Dr. Noland DDD (degenerative disc disease), lumbar 11/04/2019 Esophageal adenocarcinoma (HCC) 08/09/2020 Essential hypertension, benign GERD (gastroesophageal reflux disease) 07/12/2009 History of kidney stones 07/20/2014 Iron deficiency anemia due to chronic blood loss 05/25/2020 Iron malabsorption 05/25/2020 Kidney stone Malignant 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) 04/15/2020 Medicare annual wellness visit, subsequent 01/13/2021 Medical B eligibilty date 03/09/19 Date of last exam 01/13/2021 Mixed hyperlipidemia MRSA (methicillin resistant Staphylococcus aureus) 12/01/2016 treated with course of Linezolid beginning 10/29/16 Nonrheumatic aortic valve disorder On tube feeding diet 08/14/2020 History: 65 year old male s/p Adrián Roger esophagectomy, Pyloromyotomy, Jejunostomy tube placement for esophageal adenocarcinoma -Diet: Isosource 1.5 to 50 cc hour with 100 cc water flushes 8 times per day and Bene protein 3 times per day Removed 11/17/2020 Personal history of colonic polyps 12/27/2009 Rn Wound's nodules 03/30/2023 Will try pamelor Pleural effusion 03/11/2021 Stable in f/u studies. 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 4 07/23/2017 Situational depression 08/2014 Upper GI bleed 05/25/2020 PAST SURGICAL HISTORY Procedure Laterality Date ADENOIDECTOMY PRIMARY <AGE 11 Adenoidectomy AORTIC VALVE RECONSTRUCTION 03/03/2019 s/p TAVR BYP OTH/THN VEIN CAROTID-SUBCLAVIAN 2002 Bypass graft carotid subcl COLONOSCOPY FLX DX W/COLLJ SPEC WHEN PFRMD 02/28/2013 COLONOSCOPY FLX DX W/COLLJ SPEC WHEN PFRMD 12/06/2016 repeat in 5 yrs COLONOSCOPY SCRN NOT HIGH RISK 06/01/2020 COLONOSCOPY W/BIOPSY SINGLE/MULTIPLE 02/22/2007 Diminutive polyp distal [id number] ECHO 01/08/2021 EGD 04/15/2020 HEART CATHETERIZATION 12/2018 with 2 stents IMPLANT MESH OPN HERNIA RPR/DEBRIDEMENT CLOSURE 03/06/2007 LAPAROSCOPY SURG RPR INITIAL INGUINAL HERNIA 03/06/2007 umbilical NM CARDIAC STRESS TEST 01/08/2021 PAST SURGICAL HISTORY OF Right 2016 incision and drainage right axillary abscess REPAIR ANORECTAL FISTULA W/PLUG 12/06/2016 REPAIR FIRST ABDOMINAL WALL HERNIA 03/06/2007 right STENT - CORONARY 2014 x3 & x2 12/2018 TONSILLECTOMY PRIMARY/SECONDARY <AGE 11 Tonsillectomy TOT/SUB ESOPHAGECTOMY W/THORACOT 08/09/2020 [place] esophagectomy, jejunostomy tube placement FAMILY HISTORY Problem Relation Age of Onset Cancer Mother OVARIAN AND THYROID CA Breast Cancer Mother Ischemic Heart Disease Father from Cerebral Hemmorrhage age 50 other (mva) Brother Cancer Sister Bone Marrow CA at 59 y/o Ischemic Heart Disease Sister 49 at 57y/o No Known Problems Sister Thyroid Sister Cancer Paternal Aunt cancer of colon other (unkown) Brother SOCIAL HISTORY: Social History Tobacco Use Smoking status: Never Smokeless tobacco: Never Vaping Use Vaping Use: Never used Substance Use Topics Alcohol use: Not Currently Comment: none Drug use: No Prior to Admission medications as of 06/05/23 1234 Medication Sig Last Dose Taking pantoprazole DR (PROTONIX) 40 mg tablet Take 1 tablet by mouth two times a day. 06/05/2023 Yes atorvastatin (LIPITOR) 80 mg tablet Take 1 tablet by mouth daily at bedtime. 06/04/2023 Yes ezetimibe (ZETIA) 10 mg tablet Take 1 tablet by mouth once daily. 06/04/2023 Yes metoprolol tartrate, short acting, (LOPRESSOR) 25 mg tablet Take 1 tablet by mouth twice daily. 06/04/2023 Yes amLODIPine (NORVASC) 10 mg tablet Take 1 tablet by mouth once daily. 06/04/2023 Yes nortriptyline (PAMELOR) 10 mg capsule Take 1 capsule by mouth daily at bedtime. sodium chloride (SALINE MIST) 0.65 % nasal spray Use 1 Hutchins in the nose as needed for cold/allergysymptoms. 06/02/2023 enteric contrast (will be provided with radiology test) For CT ABD/PEL W IVCON Routine order Administer, As Directed One Time Only, via Oral, Rectal, both Oral and Rectal, Enteric Tube, Stoma or Indwelling Catheter, Enteric Contrast as designated per enteric contrast guidelines aspirin 81 mg chewable tablet Take 1 tablet by mouth once daily. 06/03/2023 acetaminophen (TYLENOL) 500 mg tablet Take 500 mg by mouth every 6 hours as needed. Unknown at as needed Medication Comments documented by Alberta Candelaria MA on 03/06/2016 at 1550. Krill Oil 350 Mg Antacid Will follow Dr. Light instructions regarding ASA ALLERGIES No Known Allergies COMPLETE REVIEW OF SYSTEMS: PAIN ASSESSMENT: Pain Pain Level: 0 Pain Assessment: Assessment Tool: Verbal (Numeric Rating or Visual Analog Scale) General: No weight loss, malaise or fevers. Neuro: No neurological symptoms or problems; no hx of seizure or stroke Respiratory: No history of current cough, wheezing, dyspnea, or recent pneumonia; no hx of asthma, COPD, or GUS Cardiovascular: No history of HTN requiring medication, no history of chest pain, palpitations, CHF, IA, cardiac surgery or stents GI: No history of GI symptoms or problems. No nausea, vomiting, abdominal pain, diarrhea : No history of dysuria, frequency or incontinence, stones or chronic kidney disease Endocrine: Negative for Diabetes or thyroid disease Hematology: No history of bleeding or clotting disorder. No history of hematological symptoms or problems. Oncology: No history of oncological symptoms or problems. Psych: No history of psychiatric symptoms or problems. Musculoskeletal: Negative for joint pain or swelling, back pain or muscle pain. Skin: Negative for lesions, rash and itching. Objective PHYSICAL EXAM: MENTAL STATUS: alert, oriented to person, place and time HEENT: Normocephalic/atraumatic, pharynx clear LUNGS: CTA, no wheezing CARDIAC: RRR, no murmur ABDOMEN: Abdomen soft, non-tender, BS normal, No masses or organomegaly EXTREMITIES: 2+ pedal pulses, no pedal edema 06/05/23 1225 BP: 144/86 Pulse: 75 Resp: 20 Temp: 37.2 C (99 F) TempSrc: Temporal SpO2: 100% Weight: 87.5 kg (193 lb) Height: 175.3 cm (5' 9") Body mass index is 28.5 kg/m . Patient has the following medical conditions which may affect ni-operative course Problem List Items Addressed This Visit C Essential hypertension, benign Overview Current Assessment & Plan On Amlodipine and metoprolol - last dose 06/04/23 E Mixed hyperlipidemia Current Assessment & Plan On Zetia and lipitor - last dose 06/04/23 Unprioritized GERD (gastroesophageal reflux disease) Current Assessment & Plan On Protonix -last dose today Aortic valve stenosis Overview moderately severe calcified aortic valve (echo 11/01/15) Current Assessment & Plan Follows with dr Noland every 6 month 2014 stent RCA, SVG Malignant 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) Current Assessment & Plan EGD today Coronary artery disease involving [place] coronary artery without angina pectoris Overview Seeing Dr. Noland Current Assessment & Plan On Aspirin - last dose 06/03/23, Metoprolol last dose 06/04/23 lipitor last dose 06/04/23 Last stress test , Echo 01/27/21 - EF 55-60 Pre-op exam Current Assessment & Plan Medical conditions which may affect the perioperative course were address in today's visit. Other Visit Diagnoses Malignant neoplasm of esophagus, unspecified location (HCC) Relevant Orders EGD - THERAPEUTIC, EUS, OR TUBE INTERVENTIONS Diagnosis: Malignant neoplasm of esophagus, unspecified location (HCC) [C15.9] Planned Procedure: EGD The Following Tests/Procedures Have Been Initiated: IV start and Maintenance fluid for the procedure. ANESTHESIA FINDINGS: Significant Anesthesia Considerations: None FAMILY PROBLEMS WITH ANESTHESIA: no history of adverse anesthetic event Planned Anesthetic: MAC I spent a total of 20 minutes on the date of the service which included preparing to see the patient, [id number] patient care, completing clinical documentation, and performing a medically appropriate examination. Instructions Given to Patient: Patient given verbal preop instructions and voices comprehension and compliance. SIGNATURE: Aruna Mendez APRN.CNP PATIENT NAME: Jacob Landa DATE: June 05, 2023 TIME: 12:09 PM PAGER/CONTACT #: documented in this [facility] Miscellaneous Notes* Telephone Encounter - Susan Nation - 05/29/2023 8:49 AM EST Patient has been identified by name and date of : Yes, Provider masci Date 05/29 Time 850 Patient phones for refill(s): Requested Prescriptions Pending Prescriptions Disp Refills pantoprazole DR (PROTONIX) 40 mg tablet 180 tablet 3 Sig: Take 1 tablet by mouth two times a day. Date of last office visit in primary care: Visit date not found Date of next office visit in primary care: Visit date not found Please advise. Thank you. Susan Jones. documented in this encounterCommunity [facility]01-17-2024 NoteHNO ID: [id number] Author: JURGNE BOCANEGRA MD Service: ? Author Type: Physician Type: Progress Notes Filed: 04/26/2023 16:22 Note Text: Jurgen Bocanegra M.D. Surgical Oncology [address] [facility], [address] [place] [id number] SUBJECTIVE HPI Jacob Landa is a 68 year old male presenting for evaluation of esophageal cancer. Patient presented with dysphagia which prompted an EGD in early 2020. This demonstrated a distal esophageal adenocarcinoma. His workup did not demonstrate any metastatic disease and he was felt to have T3 N1 cancer. This prompted chemoradiation which completed in June 23, 2020. He then underwent an Adrián Roger esophagectomy in August 2020 for which she recovered well. Patient has been on surveillance since then and doing relatively well. Unfortunately, recent imaging demonstrated a PET avid lesion stenosis and possible vertebral/left rib lesions as well. Given these concerns patient was referred to surgical oncology for consideration of EGD. Currently, patient reports that overall he is feeling relatively well. He is tolerating a regular diet. He is not losing weight. He does occasionally have some fatigue but he reports this may be related to when he "overdoes it". Review of Systems Constitutional: Positive for malaise/fatigue. Negative for weight loss. HENT: Negative for sore throat. Eyes: Negative for blurred vision and double vision. Respiratory: Negative for cough, hemoptysis, shortness of breath and stridor. Cardiovascular: Negative for palpitations, claudication and leg swelling. Gastrointestinal: Negative for abdominal pain, blood in stool, nausea and vomiting. Genitourinary: Negative for dysuria, flank pain and hematuria. Musculoskeletal: Negative for falls, joint pain and myalgias. Skin: Negative for rash. Neurological: Negative for speech change, focal weakness and headaches. Endo/Heme/Allergies: Does not bruise/bleed easily. Psychiatric/Behavioral: Negative for depression and memory loss. The patient is not nervous/anxious. PAST MEDICAL HISTORY Diagnosis Date Advance directive discussed with patient 02/09/2022 Discussed 02/2022, packets provided AK (actinic keratosis) 09/07/2020 One on the right forearm dorsal, three on the left forearm dorsal and one left side of face hear hair line about eye level. Tx cryo 09/2020 Aortic valve stenosis 07/26/2015 Asthma BPH (benign prostatic hyperplasia) 07/20/2014 Carpal tunnel syndrome of right wrist Coronary artery disease involving [place] coronary artery without angina pectoris Seeing Dr. Noland DDD (degenerative disc disease), lumbar 11/04/2019 Esophageal adenocarcinoma (HCC) 08/09/2020 Essential hypertension, benign GERD (gastroesophageal reflux disease) 07/12/2009 History of kidney stones 07/20/2014 Iron deficiency anemia due to chronic blood loss 05/25/2020 Iron malabsorption 05/25/2020 Kidney stone Malignant 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) 04/15/2020 Medicare annual wellness visit, subsequent 01/13/2021 Medical B eligibilty date 03/09/19 Date of last exam 01/13/2021 Mixed hyperlipidemia MRSA (methicillin resistant Staphylococcus aureus) 12/01/2016 treated with course of Linezolid beginning 10/29/16 Nonrheumatic aortic valve disorder On tube feeding diet 08/14/2020 History: 65 year old male s/p Adrián Roger esophagectomy, Pyloromyotomy, Jejunostomy tube placement for esophageal adenocarcinoma -Diet: Isosource 1.5 to 50 cc hour with 100 cc water flushes 8 times per day and Bene protein 3 times per day Removed 11/17/2020 Personal history of colonic polyps 12/27/2009 Rn Wound's nodules 03/30/2023 Will try pamelor Pleural effusion 03/11/2021 Stable in f/u studies. 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 4 07/23/2017 Situational depression 08/2014 Upper GI bleed 05/25/2020 PAST SURGICAL HISTORY Procedure Laterality Date ADENOIDECTOMY PRIMARY Adenoidectomy AORTIC VALVE RECONSTRUCTION 03/03/2019 s/p TAVR BYP OTH/THN VEIN CAROTID-SUBCLAVIAN 2002 Bypass graft carotid subcl COLONOSCOPY FLX DX W/COLLJ SPEC WHEN PFRMD 02/28/2013 COLONOSCOPY FLX DX W/COLLJ SPEC WHEN PFRMD 12/06/2016 repeat in 5 yrs COLONOSCOPY SCRN NOT HIGH RISK 06/01/2020 COLONOSCOPY W/BIOPSY SINGLE/MULTIPLE 02/22/2007 Diminutive polyp distal [id number] ECHO 01/08/2021 EGD 04/15/2020 HEART CATHETERIZATION 12/2018 with 2 stents IMPLANT MESH OPN HERNIA RPR/DEBRIDEMENT CLOSURE 03/06/2007 LAPAROSCOPY SURG RPR INITIAL INGUINAL HERNIA 03/06/2007 umbilical NM CARDIAC STRESS TEST 01/08/2021 PAST SURGICAL HISTORY OF Right 2016 incision and drainage right axillary abscess REPAIR ANORECTAL FISTULA W/PLUG 12/06/2016 REPAIR FIRST ABDOMINAL WALL HERNIA 03/06/2007 right STENT - CORONARY 2014 x3 AND x2 12/2018 TONSILLECTOMY PRIMARY/SECONDARY Tonsillectomy TOT/SUB ESOPHAGECTOMY W/THORACOT 08/09/2020 Adri[place] Roger esophagectomy (more content not included)...[facility]01-02-2024 NoteHNO ID: [id number] Author: Dayana Shine RT(R) Service: Nuclear Medicine Author Type: Technologist Type: Progress Notes Filed: 04/10/2023 11:52 AM Note Text: RADIOLOGY SERVICE PROGRESS NOTE SERVICE DATE: 04/10/2023 SERVICE TIME: 11:52 AM PATIENT IDENTITY VERIFICATION COMPLETED USING TWO (2) STANDARD IDENTIFIERS: Name and Date of confirmed by patient verbally FALL SCREENING: Has the patient had 2 falls in the last year or 1 fall with injury or currently using an Ambulatory Assistive Device (Walker, Cane, Wheelchair, Crutches, etc.)? No PATIENT GENDER DATA: .male : No ALLERGIES: Reviewed and unchanged MEDICATIONS REVIEWED: No PATIENT RELEVANT IMPLANT DATA REVIEWED: Not Applicable CREATININE: Creatinine Date Value Ref Range Status 02/13/2023 0.95 0.73 - 1.22 mg/dL Final 08/22/2022 1.07 0.73 - 1.22 mg/dL Final 05/22/2022 0.96 0.73 - 1.22 mg/dL Final Estimated Glomerular Filtration Rate Date Value Ref Range Status 02/13/2023 87 >=60 mL/min/1.73m? Final Comment: Estimated Glomerular Filtration Rate (eGFR) is calculated using the 2020 CKD-EPI creatinine equation. This equation utilizes serum creatinine, sex, and age as parameters. The creatinine assay has traceable calibration to isotope dilution-mass spectrometry. Refer to KDIGO guidelines for clinical interpretation. In patients with unstable renal function, e.g. those with acute kidney injury, the eGFR may not accurately reflect actual GFR. eGFR- Date Value Ref Range Status 06/02/2021 >60 Final P.O.C.T. RESULTS: N/A April 10, [address] PERFORMED: No IV SITE: Ambulatory: CT only - direct IV injection in the Right antecubital site POST EXAM PIV STATUS: Discontinued PROCEDURE TYPE: CT INJECT: PET/CT BODY SCAN. 15.0 mCi F18 FDG. No other medications given.. ADMINISTRATION TIME: 1123 PATIENT DISCHARGED TO: Ambulatory patient, left CT department area. A Diagnostic radioactive procedure has taken place, with no further precautions necessary other than routine body substance precautions. More information regarding radiation safety can be found using this link: [email or web address] SIGNATURE: RT Shanice(R) PATIENT NAME: Jacob Landa DATE: April 10, 2023 TIME: 11:52 AM [phone] Miscellaneous Notes* Telephone Encounter - Ruthy Lomeli - 03/29/2023 9:13 AM EST Spoke with pt and scheduled as directed * Telephone Encounter - Erin Du LPN - 03/29/2023 8:36 AM EST Pt notified and voices understanding. PSS please reach out and schedule. Erin Du LPN * Telephone Encounter - Richard Jenkins DO - 03/29/2023 8:22 AM EST Can let him know the MRI showed a questionable spot in one of the vertebrae--this could be a spot of recurrent esophagus cancer or something benign so please schedule for a PET scan at a F facility. May have to bump out the office visit with me to after the PET scan. Richard Jenkins DO documented in this encounterCommunity [facility]11-[facility]-2023 History of Present illness Narrative* Jessica Olvera APRN.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 - 02/27/2023 3:07 PM EST This note was created using NoteWriter. Subjective Jacob Landa is a 67 year old male. 67 year old male with PMH CABG, HTN, hyperlipidemia, asthma and GERD presents for illness. 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 Denies dyspnea Denies abdominal pain. Denies N/V/D Utilized home OTC The history is provided by the patient. No wind science and planning was used. Cough This is a new problem. The current episode started more than 1 week ago. The problem occurs constantly. The problem has not changed since onset.The cough is Productive of sputum. Associated symptoms include headaches. Pertinent negatives include no chest pain, no chills, no sweats, no weight loss, no ear congestion, no ear pain, no rhinorrhea, no sore throat, no myalgias, no shortness of breath, no wheezing and no eye redness. His past medical history does not include bronchitis, pneumonia, bronchiectasis, COPD, emphysema or asthma. PAST MEDICAL HISTORY Diagnosis Date Advance directive discussed with patient 02/09/2022 Discussed 02/2022, packets provided AK (actinic keratosis) 09/07/2020 One on the right forearm dorsal, three on the left forearm dorsal and one left side of face hear hair line about eye level. Tx cryo 09/2020 Aortic valve stenosis 07/26/2015 Asthma BPH (benign prostatic hyperplasia) 07/20/2014 Carpal tunnel syndrome of right wrist Coronary artery disease involving [place] coronary artery without angina pectoris Seeing Dr. Noland DDD (degenerative disc disease), lumbar 11/04/2019 Esophageal adenocarcinoma (HCC) 08/09/2020 Essential hypertension, benign GERD (gastroesophageal reflux disease) 07/12/2009 History of kidney stones 07/20/2014 Iron deficiency anemia due to chronic blood loss 05/25/2020 Iron malabsorption 05/25/2020 Kidney stone Malignant 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) 04/15/2020 Medicare annual wellness visit, subsequent 01/13/2021 Medical B eligibilty date 03/09/19 Date of last exam 01/13/2021 Mixed hyperlipidemia MRSA (methicillin resistant Staphylococcus aureus) 12/01/2016 treated with course of Linezolid beginning 10/29/16 Nonrheumatic aortic valve disorder On tube feeding diet 08/14/2020 History: 65 year old male s/p Adrián Roger esophagectomy, Pyloromyotomy, Jejunostomy tube placement for esophageal adenocarcinoma -Diet: Isosource 1.5 to 50 cc hour with 100 cc water flushes 8 times per day and Bene protein 3 times per day Removed 11/17/2020 Personal history of colonic polyps 12/27/2009 S/P CABG x 3 2002 S/P CABG x 4 07/23/2017 Situational depression 08/2014 Upper GI bleed 05/25/2020 PAST SURGICAL HISTORY Procedure Laterality Date ADENOIDECTOMY PRIMARY <AGE 11 Adenoidectomy AORTIC VALVE RECONSTRUCTION 03/03/2019 s/p TAVR BYP OTH/THN VEIN CAROTID-SUBCLAVIAN 2002 Bypass graft carotid subcl COLONOSCOPY FLX DX W/COLLJ SPEC WHEN PFRMD 02/28/2013 COLONOSCOPY FLX DX W/COLLJ SPEC WHEN PFRMD 12/06/2016 repeat in 5 yrs COLONOSCOPY SCRN NOT HIGH RISK 06/01/2020 COLONOSCOPY W/BIOPSY SINGLE/MULTIPLE 02/22/2007 Diminutive polyp distal [id number] ECHO 01/08/2021 EGD 04/15/2020 HEART CATHETERIZATION 12/2018 with 2 stents IMPLANT MESH OPN HERNIA RPR/DEBRIDEMENT CLOSURE 03/06/2007 LAPAROSCOPY SURG RPR INITIAL INGUINAL HERNIA 03/06/2007 umbilical NM CARDIAC STRESS TEST 01/08/2021 PAST SURGICAL HISTORY OF Right 2016 incision and drainage right axillary abscess REPAIR ANORECTAL FISTULA W/PLUG 12/06/2016 REPAIR FIRST ABDOMINAL WALL HERNIA 03/06/2007 right STENT - CORONARY 2014 x3 & x2 12/2018 TONSILLECTOMY PRIMARY/SECONDARY <AGE 11 Tonsillectomy TOT/SUB ESOPHAGECTOMY W/THORACOT 08/09/2020 Adrián Roger esophagectomy, jejunostomy tube placement ALLERGIES Patient has no active allergies. MEDICATIONS sodium chloride (SALINE MIST) 0.65 % nasal spray Use 1 Hutchins in the nose as needed for cold/allergysymptoms. enteric contrast (will be provided with radiology test) For CT ABD/PEL W IVCON Routine order Administer, As Directed One Time Only, via Oral, Rectal, both Oral and Rectal, Enteric Tube, Stoma or Indwelling Catheter, Enteric Contrast as designated per enteric contrast guidelines atorvastatin (LIPITOR) 80 mg tablet Take 1 tablet by mouth daily at bedtime. ezetimibe (ZETIA) 10 mg tablet Take 1 tablet by mouth once daily. pantoprazole DR (PROTONIX) 40 mg tablet Take 1 tablet by mouth twice daily. aspirin 81 mg chewable tablet Take 1 tablet by mouth once daily. metoprolol tartrate, short acting, (LOPRESSOR) 25 mg tablet Take 1 tablet by mouth twice daily. acetaminophen (TYLENOL) 500 mg tablet Take 500 mg by mouth every 6 hours as needed. amLODIPine (NORVASC) 10 mg tablet Take 1 tablet by mouth once daily. doxycycline (VIBRA-TABS) 100 mg tablet Take 1 tablet by mouth two times a day for 7 days. predniSONE (DELTASONE) 10 mg tablet Take 4 tabs daily for 3 days, then 2 tabs daily for 3 days, then 1 tab daily for 3 days with food. benzonatate (TESSALON PERLE) 100 mg capsule Take 2 capsules by mouth three times daily as needed. (Patient not taking: Reported on 08/02/2022) guaiFENesin (MUCINEX) 600 mg 12 hr tablet Take 2 tablets by mouth twice daily. (Patient not taking:Reported on 08/02/2022) polyethylene glycol 3350 (MIRALAX, GLYCOLAX) 17 gram/dose powder Take by mouth once daily. Dissolvedose in 4 - 8 ounces of liquid and take as directed. (Patient not taking: Reported on 08/02/2022) FAMILY HISTORY Problem Relation Age of Onset Cancer Mother OVARIAN AND THYROID CA Breast Cancer Mother Ischemic Heart Disease Father from Cerebral Hemmorrhage age 50 other (mva) Brother Cancer Sister Bone Marrow CA at 59 y/o Ischemic Heart Disease Sister 49 at 57y/o No Known Problems Sister Thyroid Sister Cancer Paternal Aunt cancer of colon other (unkown) Brother Social History Tobacco Use Smoking status: Never Smokeless tobacco: Never Vaping Use Vaping Use: Never used Substance Use Topics Alcohol use: Not Currently Comment: none Drug use: No Review of Systems Constitutional: Positive for fatigue. Negative for activity change, appetite change, chills and weight loss. HENT: Positive for congestion, postnasal drip, sinus pressure and sinus pain. Negative for ear pain, rhinorrhea and sore throat. Eyes: Negative for pain, discharge, redness and itching. Respiratory: Positive for cough. Negative for apnea, chest tightness, shortness of breath and wheezing. Cardiovascular: Negative for chest pain. Gastrointestinal: Negative for abdominal pain, diarrhea and vomiting. Musculoskeletal: Negative for myalgias. Skin: Negative for color change, pallor, rash and wound. Allergic/Immunologic: Negative for environmental allergies, food allergies and immunocompromised state. Neurological: Positive for headaches. Negative for dizziness and facial asymmetry. Hematological: Negative for adenopathy. Does not bruise/bleed easily. Psychiatric/Behavioral: Negative for agitation and behavioral problems. Objective BP 152/84 Pulse 67 Temp 36.2 C (97.1 F) (Tympanic) Resp 16 Wt 88.4 kg (194 lb 12.8 oz) SpO2 98% BMI 28.20 kg/m Physical Exam Vitals and nursing note reviewed. Constitutional: General: He is not in acute distress. Appearance: Normal appearance. He is not ill-appearing, toxic-appearing or diaphoretic. HENT: Head: Normocephalic and atraumatic. Comments: +frontal sinus pressure +maxillary sinus pressure Right Ear: External ear normal. Left Ear: External ear normal. Nose: Nose normal. No congestion or rhinorrhea. Mouth/Throat: Mouth: Mucous membranes are moist. Pharynx: Oropharynx is clear. Posterior oropharyngeal erythema present. No oropharyngeal exudate. Eyes: General: Right eye: No discharge. Left eye: No discharge. Extraocular Movements: Extraocular movements intact. Conjunctiva/sclera: Conjunctivae normal. Pupils: Pupils are equal, round, and reactive to light. Cardiovascular: Rate and Rhythm: Normal rate and regular rhythm. Pulses: Normal pulses. Heart sounds: Normal heart sounds. No murmur heard. No friction rub. No gallop. Pulmonary: Effort: Pulmonary effort is normal. No respiratory distress. Breath sounds: Normal breath sounds. No stridor. No wheezing, rhonchi or rales. Chest: Chest wall: No tenderness. Abdominal: General: Abdomen is flat. There is no distension. Palpations: Abdomen is soft. There is no mass. Tenderness: There is no abdominal tenderness. There is no guarding or rebound. Hernia: No hernia is present. Musculoskeletal: General: No swelling, tenderness, deformity or signs of injury. Normal range of motion. Cervical back: Normal range of motion and neck supple. No rigidity or tenderness. Right lower leg: No edema. Left lower leg: No edema. Lymphadenopathy: Cervical: Cervical adenopathy present. Skin: General: Skin is warm and dry. Capillary Refill: Capillary refill takes less than 2 seconds. Coloration: Skin is not jaundiced or pale. Findings: No bruising, lesion or rash. Neurological: General: No focal deficit present. Mental Status: He is alert and oriented to person, place, and time. Cranial Nerves: No cranial nerve deficit. Sensory: No sensory deficit. Motor: No weakness. Coordination: Coordination normal. Gait: Gait normal. Deep Tendon Reflexes: Reflexes normal. Psychiatric: Mood and Affect: Mood normal. Behavior: Behavior normal. Thought Content: Thought content normal. Assessment and Plan ASSESSMENT/PLAN: 1. Rhinosinusitis - ICD9: 473.9, ICD10: J32.9 - Will begin treatment with as per antibiotic as written, see orders - The patient should also be given OTC cough and cold meds as needed, warm salt water gargles, throat lozenges and/or OTC throat spray as needed, and nasal saline gtts and suction prn for the first 5-7 days of treatment. - Supportive care with plenty of fluids, rest, and analgesia prn. - Follow up in 3-5 days if symptoms persist or worsen. Jessica Olvera APRN.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 documented in this encounterCommunity [facility] Center11-15-2023 Miscellaneous Notes* Telephone Encounter - Jyoti Fajardo - 02/21/2023 1:35 PM EST Jacob called back and was relayed the below information. Patient stated he was not aware of the appointment he missed. He stated when he was in last week for his CT scan he asked about it and they only gave him his PCP follow-up Patient is scheduled for the MRI here at our building for 03/27/2023 @ 3:00 pm and then to follow-up with on 04/11/22 @ 10:30 am, he confirmed these dates and times. Jyoti Jones * Telephone Encounter - Luly Gaffney RN - 02/21/2023 1:20 PM EST Called patient, there was no answer, left a requesting a call back from patient. Please see Dr. Jenkins's message when patient returns call. Thank you. Luly Gaffney RN * Telephone Encounter - Richard Jenkins DO - 02/21/2023 1:08 PM EST He missed his appointment yesterday morning. He had CT scans for surveillance of history of esophagus cancer. Can let him know there was no obvious evidence of recurrent cancer but there was a new compression fracture in one of his thoracic vertebrae that appeared to be because of thinning of the bone. However the radiologist did recommend an MRI to further characterize that. Lets schedule him for that and then an office visit with me following the MRI. Richard Jenkins DO documented in this encounterCommunity [facility] Center11-13-2023 History of Present illness Narrative* Yaw Singh MD - 02/19/2023 8:54 PM EST Patient had to reschedule. documented in this encounterCommunity [facility] Center11-07-2023 History of Present illness Narrative* Beatrice Zuleta RT(R) - 02/13/2023 9:20 AM EST Radiology Service Progress Note DATE OF SERVICE: February 13, 2023 TIME: 10:20 AM PATIENT IDENTITY VERIFICATION COMPLETED USING TWO (2) STANDARD IDENTIFIERS: Name and Date of confirmed by patient verbally. FALL SCREENING: Has the patient had 2 falls in the last year or 1 fall with injury or currently using an Ambulatory Assistive Device (Walker, Cane, Wheelchair, Crutches, etc.)? No PATIENT GENDER DATA: Male PATIENT RELEVANT IMPLANT DATA REVIEWED: Yes ALLERGIES: Reviewed and unchanged CONTRAST ALLERGY: NO. EXAM: CT -CONTRAST INDUCED NEPHROPATHY RISK FACTORS: Patient age > 60 years CREATININE: Creatinine Date Value Ref Range Status 02/13/2023 0.95 0.73 - 1.22 mg/dL Final 08/22/2022 1.07 0.73 - 1.22 mg/dL Final 05/22/2022 0.96 0.73 - 1.22 mg/dL Final Estimated Glomerular Filtration Rate Date Value Ref Range Status 02/13/2023 87 >=60 mL/min/1.73m Final Comment: Estimated Glomerular Filtration Rate (eGFR) is calculated using the 2020 CKD-EPI creatinine equation. This equation utilizes serum creatinine, sex, and age as parameters. The creatinine assay has traceable calibration to isotope dilution- mass spectrometry. Refer to KDIGO guidelines for clinical interpretation. In patients with unstable renal function, e.g. those with acute kidney injury, the eGFRmay not accurately reflect actual GFR. eGFR- Date Value Ref Range Status 06/02/2021 >60 Final P.O.C.T. RESULTS: POC done: Yes, See Lab Tab February 13, 2023 TREATMENT: N/A PERIPHERAL IV DATA: Ambulatory: A peripheral IV was started in the Left antecubital site with a Angio cath: 22 gauge. RADIOLOGY DEPARTMENT: CT; Exam(s) Completed: Chest Abdomen Pelvis SIGNATURE: RT Geno(R) PATIENT NAME: Jacob Landa DATE: February 13, 2023 TIME: 10:20 AM documented in this encounterCommunity [facility] Center08-16-2023 History of Present illness Narrative* Alberta Candelaria MA - 11/22/2022 1:32 PM EDT Scan on 11/20/2022 9:06 AM by Provider, OPAL Samaniego: Consultation - Cardiology Alberta Candelaria MA documented in this encounterCommunity [facility] Medical Center05-16-2023 History of Present illness Narrative* Richard Jenkins DO - 08/22/2022 8:22 AM EDT Oncologic problem(s): 1) Adenocarcinoma the GE junction. HPI: The patient is a 67-year-old male with a past medical history significant for coronary artery disease (CABG x4 vessels 2002; 2 stents at [facility] /2018; 3 stents [facility] 2014), HTN, hyperlipidemia, aortic valve stenosis (s/p TAVR bioprosthetic valve 02/2019), asthma, GERD, colon polyps, degenerative disc disease of the lumbar spine, BPH and history of kidney stones. Patient began having dysphagia and odynophagia several months prior to evaluation. He started on Protonix and had mild improvement in symptoms. EGD 04/15/2020: The examined jejunum was normal. The in the duodenum was normal. Scattered mild inflammation was found in the entire examined stomach. Biopsies were taken with a cold forceps for histology. Mildly severe esophagitis with no bleeding was found. Biopsies were taken with a cold forceps for histology. A large, fungating mass with bleeding and no stigmata of recent bleeding was found in the middle third of the esophagus, 32 to 38 cm from the incisors. The mass was partially obstructing and circumferential. Biopsies were taken with a cold forceps for histology. Pathology: FINAL DIAGNOSIS 1. Stomach, antrum, biopsy (A) - Gastric antral mucosa with no significant diagnostic alteration. - No morphological evidence of Helicobacter pylori organisms. 2. Esophagus, tumor at 32-38 cm, biopsy (B) - Adenocarcinoma, moderately differentiated. - See comment. 3. Esophagogastric junction, at 40 cm, biopsy (C) - Inflamed gastric cardia-type mucosa. - No evidence of intestinal metaplasia or dysplasia. COMMENT 2. The biopsy reveals moderately differentiated adenocarcinoma with at least lamina propria involvement (pT1a at least). There are focal features suspicious for submucosal invasion. CT Chest 04/15/2020: Lines, tubes, and devices: None. Lung parenchyma and airways: Trachea and central bronchi are patent with no endobronchial lesion. No focal consolidation. Few scattered cysts in the lower lobes. Scattered calcified granulomata consistent with remote granulomatous disease. Minimal subsegmental atelectasis dependent portions of the lower lobes. 2 mm nodule posterior right upper lobe (image 52) which may be calcified. 2 mm nodule abutting the left major fissure (image 75) which may represent a perifissural node. Otherwise, no suspicious pulmonary nodule. Pleural space: No pleural effusion. No pleural thickening. Lower neck, lymph nodes, and mediastinum: Moderate size hiatal hernia with suspected wall thickening above the hiatal hernia in the distal esophagus perhaps at the site of known neoplasm. Remainder of the esophagus is collapsed. Imaged thyroid gland is within normal limits. Calcified subcarinal and right hilar nodes consistent with remote granulomatous disease. No supraclavicular, axillary or hilar lymphadenopathy. Few nonspecific (short axis diameter <10 mm) mediastinal nodes are present, none enlarged by size criteria. Heart, pericardium, and thoracic vessels: Sternotomy for CABG and aortic valve replacement. Thoracic aorta is normal in caliber with mild atherosclerotic calcifications. Main pulmonary arteries normal caliber. Cardiac chambers are normal in size. No pericardial effusion or thickening. Bones and soft tissues: No suspicious osseous lesion. Mild endplate degenerative changes of the thoracic spine. Chest wall soft tissues are grossly within normal limits. Upper abdomen: Dedicated CT abdomen pelvis dictated separately. Rheostat Assembler (topogram) images: No additional findings. CT A/P 04/15/2020: Liver: No mass. Biliary: No bile duct dilation. Gallbladder is unremarkable. Spleen: No mass. No splenomegaly. Pancreas: No mass or duct dilation. Adrenals: 1 cm fatty density RIGHT adrenal gland consistent with a myelolipoma. Left adrenal gland is unremarkable. Kidneys: 2.5 cm medial LEFT renal density and 1 cm lower pole RIGHT renal density consistent with a cyst. GI tract: No dilation or wall thickening. Appendix appears normal. There is colonic diverticulosis. Lymph nodes: No abdominal or pelvic lymphadenopathy. Mesentery/Peritoneum: No ascites or mass. Retroperitoneum: No mass. Vasculature: The celiac axis and SMA are patent. The portal vein and branches, splenic vein, SMV, and hepatic veins are patent. Arterial atherosclerotic disease without aneurysm. Pelvis: No mass, ascites or fluid collection. Bones/Soft Tissues: Status post post RIGHT inguinal herniorrhaphy with mesh. Lower thorax: A chest CT performed will be reported separately. Rheostat Assembler (topogram) images: No additional findings. EGD/EUS 04/26/2020: A partially obstructing, malignant esophageal tumor was found to lower 30 esophagus. Gastric tumor in the cardia extension from distal esophageal tumor. Masses none lower third of the esophagus. -EUS staging T3 N1. At initial consultation visit here: He developed dysphagia and odynophagia several months ago. It was also associated with a lot of hiccuping. Currently he is able to swallow most foods except for meats. He has been able to get down some cooked vegetables and potatoes as long as pieces are very small and he chews well. Only he will have some regurgitation of clear fluid. No nausea per se. No longer having symptoms of reflux. His functional capacity is very good. He endorses dyspnea with heavy exertion but that has been stable. He does not have any symptoms of exertional chest pain or pressure. Mild lower extremity swelling that he attributes to previous vein harvesting. He is a lifelong non-smoker. He does not drink alcohol. Used to drink only very rarely. At CT scans on 07/14/2020 which showed no evidence of metastatic disease. Mild decrease in thickeningof the distal esophagus was noted. Previous therapy: 1) Concurrent chemotherapy/radiation with carboplatin and paclitaxel. 05/24 through 06/23/2020. Underwent Adrián Roger esophagectomy on 08/09/2020. Pathology: 1. Esophagus and stomach, distal thoracic esophagus and proximal stomach, esophagectomy (A): - Residual adenocarcinoma, status-post chemoradiation treatment, focally invading the adventitia. - Surgical resection margins negative for carcinoma. - Twenty-four lymph nodes, negative for carcinoma (0/24). - See synoptic report. 2. Soft tissue, pre-peritoneal fat pad, excision (B): - Fibroadipose connective tissue. 3. Lymph node, level VIII, excision (C): - One lymph node, negative for carcinoma (0/1). 4. Lymph node, level VII, excision (D): - One lymph node, negative for carcinoma (0/1). 5. Lymph nodes, left gastric lymph node packet, excision (E): - Two lymph nodes, negative for carcinoma (0/2). 6. Lymph node, ni-esophageal, excision (F): - One lymph node, negative for carcinoma (0/1). 7. Stomach, additional resection (G): - Gastric antral mucosa, negative for carcinoma. 8. Esophagus, final margin, resection (H): - Squamous mucosa and intestinal metaplasia, negative for carcinoma. 3) Adjuvant nivolumab. Patient had CT scans March 09/2021. Following that he was observed to have a mild increase in serum creatinine 1.3 mg/dL. He was hospitalized on 03/25 for increasing shortness of breath. At that time creatinine was 2.5 mg/dL. Decreased to 1.8 mg/dL with hydration overnight. Repeat creatinine on 03/30 was 1.3 and then again 1.3 mg/dL on 04/11 and then 1.02 mg/dL on 05/05. The LEELA was attributed to immunotherapy but timing suggest may have also been due to IV contrast administration for CT scans on 03/09. Previously had an echocardiogram on 01/07/2021. Normal left ventricular function with EF estimated 55 to 60%. Right ventricle was noted to be normal with normal systolic function. Grade 1 diastolic dysfunction was observed. There was a normal-appearing bioprosthetic AV functioning valve with trivialAI. Presents for ongoing oncologic management. Interim history: Walking 3 miles a day. Appetite incrementally improving. Few episodes nocturnal reflux. Has adjustable bed and uses wedge. Abdominal pain on occasion when bends over. Pain can linger a day or two. Bowels okay. PMH, medications and allergies personally reviewed by me today. Any changes documented in appropriate section. ROS: Constitutional: Denies episodes of fever and night sweats. Neuro: Denies CHAIDEZ, vertigo, dizziness and imbalance. Denies symptoms of neuropathy. HEENT: No recent change in voice, vision or hearing. Resp: No cough or dyspnea. CVS: No exertional chest pain. GI: See above. : Denies dysuria or gross hematuria. No symptoms of bladder outlet obstruction. Endo: Denies hot flashes. Denies polyuria and polydipsia. Denies heat and cold intolerance. Musculoskeletal: Denies bone, back, joint and muscular pain. Derm: Denies rash. Denies jaundice and diffuse pruritis. Heme: Denies unusual bleeding and unexplained bruising. Psych: Normal mood. PHYSICAL EXAM: Vitals: Blood pressure 135/80, pulse 70, temperature 36.6 C (97.9 F), temperature source Temporal, weight 85.3 kg (188 lb), SpO2 99 %. Well-appearing and in no acute distress. EYES: Sclerae are anicteric bilaterally. NECK: Supple. LYMPHATIC: There is no palpable cervical or supraclavicular adenopathy. RESPIRATORY: There is exam evidence of residual bilateral pleural effusion. CARDIOVASCULAR: Rhythm is regular. ABDOMEN: The abdomen is nondistended. Extremities: No swelling or edema. SKIN: No jaundice or rash. No petechiae. NEUROLOGIC: statistics teacher II-XII are grossly intact. No focal motor weakness. LABS: Component Latest Ref Rng & Units 08/22/2022 WBC 3.70 - 11.00 k/uL 4.26 RBC 4.20 - 6.00 m/uL 4.76 Hemoglobin 13.0 - 17.0 g/dL 13.0 Hematocrit 39.0 - 51.0 % 39.7 MCV 80.0 - 100.0 fL 83.4 MCH 26.0 - 34.0 pg 27.3 MCHC 30.5 - 36.0 g/dL 32.7 RDW-CV 11.5 - 15.0 % 14.5 Platelet Count 150 - 400 k/uL 160 MPV 9.0 - 12.7 fL 9.5 Neut% % 69.8 Abs Neut (ANC) 1.45 - 7.50 k/uL 2.97 Lymph% % 14.3 Abs Lymph 1.00 - 4.00 k/uL 0.61 (L) [place]% % 11.0 Abs [place] <0.87 k/uL 0.47 Eosin% % 3.5 Abs Eosin <0.46 k/uL 0.15 Baso% % 1.2 Abs Baso <0.11 k/uL 0.05 Immature Gran % % 0.2 IMMATURE GRANS (ABS) <0.10 k/uL <0.03 NRBC /100 WBC 0.0 Absolute nRBC <0.01 k/uL <0.01 DTYPE Auto Protein, Total 6.3 - 8.0 g/dL 6.6 Albumin 3.9 - 4.9 g/dL 4.1 Calcium 8.5 - 10.2 mg/dL 9.3 Bilirubin, Total 0.2 - 1.3 mg/dL 0.7 Alkaline Phosphatase 38 - 113 U/L 94 AST 14 - 40 U/L 13 (L) ALT 10 - 54 U/L 13 Glucose 74 - 99 mg/dL 100 (H) BUN 9 - 24 mg/dL 15 Creatinine 0.73 - 1.22 mg/dL 1.07 Sodium 136 - 144 mmol/L 140 Potassium 3.7 - 5.1 mmol/L 4.2 Chloride 97 - 105 mmol/L 105 CO2 22 - 30 mmol/L 28 Anion Gap 9 - 18 mmol/L 7 (L) eGFR >=60 mL/min/1.73m 76 ASSESSMENT/PLAN: (C15.5) Malignant 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) (primary encounter diagnosis) Assessment: -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 -Tolerated therapy well overall, but was able to only get 4 doses preoperative chemotherapy secondary to cytopenias. -ypT3 N0 (0 of 29 LNs). -Most recent EGD was 08/02/2022. No issues. Results reviewed. -He tolerated immunotherapy very well and completed a year of therapy. Plan: -Per GI main campus--next EGD in a year. -CTs in 6 months. 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 Portions of this documentation were copied and pasted from previous office visit notes in order to provide a cohesive continuity of the history. The note has been reviewed and edited and updated as necessary. I spent a total of 20 minutes on the date of the service which included preparing to see the patient, [id number] patient care, completing clinical documentation, obtaining and/or reviewing separately obtained history, performing a medically appropriate examination, ordering medications, tests, or procedures, and communicating results to the patient/family/caregiver. Richard Jenkins DO documented in this encounterCommunity [facility] Center05-03-2023 History of Present illness Narrative* Usha Mcgovern PA-C - 08/09/2022 12:45 PM EDT Chief Complaint Patient presents with: 6 Month Exam HPI Jacob Landa is a 67 year old male who presents here today for Chronic Medical Conditions.. Patient with hx of CAD, hyperlipidemia, aortic valve stenosis, asthma, GERD, esophageal cancer, DDD, depression, BPH and those as below. Patient denies specific concerns for me today. Recently passed kidney stones and saw Dr. Danielle for this. Past medical history, appointments, medications, allergies reviewed. Previous Medical History PAST MEDICAL HISTORY Diagnosis Date Advance directive discussed with patient 02/09/2022 Discussed 02/2022, packets provided AK (actinic keratosis) 09/07/2020 One on the right forearm dorsal, three on the left forearm dorsal and one left side of face hear hair line about eye level. Tx cryo 09/2020 Aortic valve stenosis 07/26/2015 Asthma BPH (benign prostatic hyperplasia) 07/20/2014 Carpal tunnel syndrome of right wrist Coronary artery disease involving [place] coronary artery without angina pectoris Seeing Dr. Noland DDD (degenerative disc disease), lumbar 11/04/2019 Esophageal adenocarcinoma (HCC) 08/09/2020 Essential hypertension, benign GERD (gastroesophageal reflux disease) 07/12/2009 History of kidney stones 07/20/2014 Iron deficiency anemia due to chronic blood loss 05/25/2020 Iron malabsorption 05/25/2020 Malignant 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) 04/15/2020 Medicare annual wellness visit, subsequent 01/13/2021 Medical B eligibilty date 03/09/19 Date of last exam 01/13/2021 Mixed hyperlipidemia MRSA (methicillin resistant Staphylococcus aureus) 12/01/2016 treated with course of Linezolid beginning 10/29/16 Nonrheumatic aortic valve disorder On tube feeding diet 08/14/2020 History: 65 year old male s/p Adrián Roger esophagectomy, Pyloromyotomy, Jejunostomy tube placement for esophageal adenocarcinoma -Diet: Isosource 1.5 to 50 cc hour with 100 cc water flushes 8 times per day and Bene protein 3 times per day Removed 11/17/2020 Personal history of colonic polyps 12/27/2009 S/P CABG x 3 2002 S/P CABG x 4 07/23/2017 Situational depression 08/2014 Upper GI bleed 05/25/2020 Previous Surgical History PAST SURGICAL HISTORY Procedure Laterality Date ADENOIDECTOMY PRIMARY <AGE 11 Adenoidectomy AORTIC VALVE RECONSTRUCTION 03/03/2019 s/p TAVR BYP OTH/THN VEIN CAROTID-SUBCLAVIAN 2002 Bypass graft carotid subcl COLONOSCOPY FLX DX W/COLLJ SPEC WHEN PFRMD 02/28/2013 COLONOSCOPY FLX DX W/COLLJ SPEC WHEN PFRMD 12/06/2016 repeat in 5 yrs COLONOSCOPY SCRN NOT HIGH RISK 06/01/2020 COLONOSCOPY W/BIOPSY SINGLE/MULTIPLE 02/22/2007 Diminutive polyp distal [id number] ECHO 01/08/2021 EGD 04/15/2020 HEART CATHETERIZATION 12/2018 with 2 stents IMPLANT MESH OPN HERNIA RPR/DEBRIDEMENT CLOSURE 03/06/2007 LAPAROSCOPY SURG RPR INITIAL INGUINAL HERNIA 03/06/2007 umbilical NM CARDIAC STRESS TEST 01/08/2021 PAST SURGICAL HISTORY OF Right 2016 incision and drainage right axillary abscess REPAIR ANORECTAL FISTULA W/PLUG 12/06/2016 REPAIR FIRST ABDOMINAL WALL HERNIA 03/06/2007 right STENT - CORONARY 2014 x3 & x2 12/2018 TONSILLECTOMY PRIMARY/SECONDARY <AGE 11 Tonsillectomy TOT/SUB ESOPHAGECTOMY W/THORACOT 08/09/2020 [place] esophagectomy, jejunostomy tube placement Family History FAMILY HISTORY Problem Relation Age of Onset Cancer Mother OVARIAN AND THYROID CA Breast Cancer Mother Ischemic Heart Disease Father from Cerebral Hemmorrhage age 50 other (mva) Brother Cancer Sister Bone Marrow CA at 59 y/o Ischemic Heart Disease Sister 49 at 57y/o No Known Problems Sister Thyroid Sister Cancer Paternal Aunt cancer of colon other (unkown) Brother Patient Allergies ALLERGIES Allergen Reactions Environmental Aller* Other: See Comments Cats, dogs, dust mites, trees, grasses, weeds, ragweed Current Medications Current Outpatient Medications on File Prior to Visit Medication Sig ondansetron (ZOFRAN) 4 mg tablet Take 1 tablet by mouth every 8 hours as needed for nausea/vomiting. sodium chloride (SALINE MIST) 0.65 % nasal spray Use 1 [place] in the nose as needed for cold/allergysymptoms. ezetimibe (ZETIA) 10 mg tablet Take 1 tablet by mouth once daily. pantoprazole DR (PROTONIX) 40 mg tablet Take 1 tablet by mouth twice daily. aspirin 81 mg chewable tablet Take 1 tablet by mouth once daily. metoprolol tartrate, short acting, (LOPRESSOR) 25 mg tablet Take 1 tablet by mouth twice daily. acetaminophen (TYLENOL) 500 mg tablet Take 500 mg by mouth every 6 hours as needed. amLODIPine (NORVASC) 10 mg tablet Take 1 tablet by mouth once daily. benzonatate (TESSALON PERLE) 100 mg capsule Take 2 capsules by mouth three times daily as needed. (Patient not taking: Reported on 08/02/2022) guaiFENesin (MUCINEX) 600 mg 12 hr tablet Take 2 tablets by mouth twice daily. (Patient not taking:Reported on 08/02/2022) iv contrast (will be provided with radiology test) CT ABD/PEL -Inject, intravenously, once for 1 dose.No IV access, insert saline lock prior to the beginning of sedation, infusion, injection of imaging exam. Discontinue saline lock post exam. If Pt. has a central line or IVAD, may access for administration according to line specific nursing protocol. Once exam is complete flush line and de-accessaccording to line specific nursing protocol in the CT contrast administration guidelines link. enteric contrast (will be provided with radiology test) For CT ABD/PEL W IVCON Routine order Administer, As Directed One Time Only, via Oral, Rectal, both Oral and Rectal, Enteric Tube, Stoma or Indwelling Catheter, Enteric Contrast as designated per enteric contrast guidelines iv contrast (will be provided with radiology test) CT Chest W -Inject, intravenously, once for 1 dose.No IV access, insert saline lock prior to the beginning of sedation, infusion, injection of imaging exam. Discontinue saline lock post exam. If Pt. has a central line or IVAD, may access for administration according to line specific nursing protocol. Once exam is complete flush line and de-accessaccording to line specific nursing protocol in the CT contrast administration guidelines link. atorvastatin (LIPITOR) 80 mg tablet Take 1 tablet by mouth daily at bedtime. polyethylene glycol 3350 (MIRALAX, GLYCOLAX) 17 gram/dose powder Take by mouth once daily. Dissolvedose in 4 - 8 ounces of liquid and take as directed. (Patient not taking: Reported on 08/02/2022) No current facility-administered medications on file prior to visit. Social History Social History Tobacco Use Smoking status: Never Smokeless tobacco: Never Vaping Use Vaping Use: Never used Substance Use Topics Alcohol use: Not Currently Comment: none Drug use: No Review of Symptoms REVIEW OF SYSTEMS GENERAL: No weight loss, malaise or fevers NECK: Negative for lumps, goiter, pain and significant neck swelling RESPIRATORY: Negative for cough, hemoptysis, wheezing, COPD, dyspnea or shortness of breath CARDIOVASCULAR: Negative for chest pain, leg swelling, hypertension, CHF or palpitations NEURO: No history of headaches, syncope, paralysis, seizures or tremors EXAM: BP 122/78 (BP Site: Left Arm, BP Position: Sitting, BP Cuff Size: Large Adult) Pulse 72 Temp 36.6 C (97.8 F) Resp 16 Wt 87.1 kg (192 lb) BMI 27.80 kg/m General Appearance: Well appearing, alert, in no acute distress, well-hydrated, well nourished.. Neck: Supple, no adenopathy; thyroid symmetric, normal size, no bruits. Lungs: Lungs clear to auscultation. No wheezing, rhonchi, rales.. Heart: RRR without murmur, gallop, or rubs. No ectopy. Extremities: No deformities, edema, skin discoloration, clubbing or cyanosis. Good capillary refill. . Peripheral Pulses: Normal. Health Maintenance List ADVANCE DIRECTIVE DISCUSSION due on 04/09/2022 SHINGRIX VACCINE(1 of 2) due on 02/09/2023 COVID-19 VACCINE(1) due on 08/10/2023 ANNUAL PCP TEAM CHRONIC DISEASE VISIT due on 02/09/2023 BP CONTROLLED (<130/80) due on 02/09/2023 LDL CHOLESTEROL due on 02/20/2023 DIABETES SCREEN due on 05/22/2025 COLORECTAL CANCER SCREENING due on 06/01/2025 LIPID SCREEN due on 02/20/2027 PROSTATE CANCER SCREENING DISCUSSION due on 02/20/2027 DTAP,TDAP,TD(4 - Td or Tdap) due on 01/29/2028 SPIROMETRY Completed INFLUENZA Completed HEPATITIS C SCREENING Completed PNEUMOCOCCAL: 65+ Completed Data reviewed N/a ASSESSMENT/PLAN: 1. Essential hypertension, benign - ICD9: 401.1, ICD10: I10 (primary diagnosis) - good control - Continue current medication(s) - Recommended regular aerobic exercise. - Recommend home blood pressure monitoring, to bring results in on next visit - Goal of BP <130/80 - BASIC METABOLIC PNL 2. Mixed hyperlipidemia - ICD9: 272.2, ICD10: E78.2 - good control - Encouraged following a low carbohydrate, healthy oil intake diet. - Continue current therapy. - LIPID PANEL, NONFASTING - BASIC METABOLIC PNL 3. Gastroesophageal reflux disease, unspecified whether esophagitis present - ICD9: 530.81, ICD10: K21.9 - stable 4. Esophageal adenocarcinoma (HCC) - ICD9: 150.9, ICD10: C15.9 Cont with specialist 5. Coronary artery disease involving [place] coronary artery of [place] heart without angina pectoris- ICD9: 414.01, ICD10: I25.10 Cont with cardio 6. S/P CABG x 4 - ICD9: V45.81, ICD10: Z95.1 Cont with cardio 7. Malignant 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) - ICD9: 150.5, ICD10: C15.5 As above 8. Iron deficiency anemia due to chronic blood loss - ICD9: 280.0, ICD10: D50.0 check - CBC + DIFF 9. Benign prostatic hyperplasia, unspecified whether lower urinary tract symptoms present - ICD9: 600.00, ICD10: N40.0 Cont with uro. Labs ordered. Return for wellness in 6 months. Usha Mcgovern PA-C documented in this encounterCommunity [facility] Center04-26-2023 History of Present illness Narrative* Queta Hunt APRN.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 - 08/02/2022 1:55 PM EDT Part of this note was copied from previous note, all content has been individually reviewed, updated as necessary, and thoroughly reviewed. [facility] - OUTPATIENT THORACIC SURGERY CLINIC NOTE PT NAME: Jacob Landa [facility] NO: [id number] THORACIC SURGEON: Renetta Radford M.D. DATE OF SERVICE: 08/02/2022 PRINCIPAL DX: ypT3N0 adenocarcinoma distal esophagus SURGICAL HX: 08/09/2020: Adri[place] Roger esophagectomy, Pyloromyotomy, Jejunostomy tube placement Surgical Pathology: FINAL DIAGNOSIS 1. Esophagus and stomach, distal thoracic esophagus and proximal stomach, esophagectomy (A): - Residual adenocarcinoma, status-post chemoradiation treatment, focally invading the adventitia. - Surgical resection margins negative for carcinoma. - Twenty-four lymph nodes, negative for carcinoma (0/24). - See synoptic report. 2. Soft tissue, pre-peritoneal fat pad, excision (B): - Fibroadipose connective tissue. 3. Lymph node, level VIII, excision (C): - One lymph node, negative for carcinoma (0/1). 4. Lymph node, level VII, excision (D): - One lymph node, negative for carcinoma (0/1). 5. Lymph nodes, left gastric lymph node packet, excision (E): - Two lymph nodes, negative for carcinoma (0/2). 6. Lymph node, ni-esophageal, excision (F): - One lymph node, negative for carcinoma (0/1). 7. Stomach, additional resection (G): - Gastric antral mucosa, negative for carcinoma. 8. Esophagus, final margin, resection (H): - Squamous mucosa and intestinal metaplasia, negative for carcinoma. [facility] [place]/13/2020 SYNOPTIC REPORT OF BERRY PATHOLOGIC FINDINGS DISTAL THORACIC ESOPHAGUS, PROXIMAL STOMACH: ESOPHAGUS:ENDOSCOPIC RESECTION, ESOPHAGECTOMY, OR ESOPHAGOGASTRECTOMY WORKSHEET Procedure: Esophagogastrectomy Tumor Site: Distal esophagus (lower thoracic esophagus) Relationship of Tumor to Esophagogastric Junction: Tumor midpoint lies in the distal esophagus and tumor involves the esophagogastric junction Tumor Size: Greatest dimension: 4.5 cm Additional dimension: 3 cm Additional dimension: 1.1 cm Histologic Type: Adenocarcinoma Histologic Grade: G2: Moderately differentiated Tumor Extension: Tumor invades adventitia Margins: All margins uninvolved by invasive carcinoma, dysplasia, and intestinal metaplasia Margins examined: Proximal mucosal, distal mucosal, soft tissue/adventitial Distance of invasive carcinoma from closest margin: 0.5 cm Specify closest margin: Soft tissue/adventitial Proximal Margin: Proximal margin uninvolved by invasive carcinoma Distal Margin: Distal margin uninvolved by invasive carcinoma Radial Margin: Radial margin uninvolved by invasive carcinoma Treatment Effect: Present, single cells or rare small groups of cancer cells (near complete response, score 1) Lymphovascular Invasion: Not identified Perineural Invasion: Not identified Regional Lymph Nodes: Number of regional lymph nodes involved: 0 Number of regional lymph nodes examined: 29 Pathologic Stage Classification (pTNM,AJCC 8th ed) TNM Descriptors: y (posttreatment) Primary Tumor (pT): pT3: Tumor invades adventitia Regional Lymph Nodes (pN): pN0: No regional lymph node metastasis Distant Metastasis (pM): Not applicable/Not confirmed pathologically in this case REASON FOR VISIT: Follow up after EGD HPI: Jacob Landa is a 67 year old male with a past medical history significant for coronary artery disease (CABG x4 vessels 2002; stents in 2014 and 2018), HTN, hyperlipidemia, aortic valve stenosis (s/p TAVR 02/2019), asthma, GERD, degenerative disc disease of the lumbar spine, and BPH who initially presented with dysphagia. EGD/EUS and PET scan confirmed T3N1 distal esophageal adenocarcinoma. He underwent concurrent chemotherapy/radiation completed on 06/23/2020 and now presents for surgical resection as the final stage in trimodal therapy. PHYSICAL EXAM: VITAL SIGNS: BP 138/80 Pulse (!) 57 Temp 36.8 C (98.2 F) (Oral) Ht 177 cm (5' 9.69") Wt 84.5 kg (186 lb 4.8 oz) SpO2 95% BMI 26.97 kg/m GENERAL no acute distress alert and oriented x3 HEENT normocephalic, head midline, oral mucous membranes moist HEART regular rate and rhythm LUNGS clear to auscultation bilaterally, no rhonchi rales or wheezing ABDOMEN soft nontender, nondistended. EXTREMITIES no clubbing, cyanosis or edema MUSCULOSKELETAL gait within normal limits SKIN no rashes or petechiae TEST/RESULTS: EGD 08/02/2022 - Dr Francesca Vazquez Impression: - Normal oropharynx. - No gross lesions in the proximal esophagus. Widely patient anastomosis. - No gross lesions in the entire stomach. - No gross lesions in the first portion of the duodenum and in the second portion of the duodenum. - No specimens collected. INTERVAL HISTORY: Jacob Landa returns to clinic following an EGD with Dr Vazquez. Pt denies fever, chills, diahhrea, and vomiting. He is tolerating diet, and moving bowels regularly. He will have occasional dumping syndrome with artificial sweeteners. EGD showed widely patent anastomosis. No gross lesions. Return in 1 year with an EGD. Patients states understanding and all questions were answered to satisfaction; will call if new or worsening symptoms occur or if any additional questions arise. IMPRESSION: 67 year old year old male s/p [place] esophagectomy, Pyloromyotomy, Jejunostomy tubeplacement with Dr Renetta Radford on 08/09/2020. Pathology showed ypT3N0 adenocarcinoma distal esophagus. JARAD. PLAN: - Return for EGD in 1 year - Oncology follow up, Dr. Jenkins - Radiation/Oncology, Dr.Lee Queta Gleason APRN.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 documented in this encounterCommunity Regional Medical Center04-26-2023 Nurse Note* Nuria Blandon RN - 08/02/2022 12:09 PM EDT AMBULATORY PATIENT EDUCATION NOTE TOPIC: GI PROCEDURES: Esophagogastroduodenoscopy(EGD) for control of bleeding,dilation(any means),imaging,tube placement READINESS TO LEARN INSTRUCTION PROVIDED TO: Patient, readness to learn accessed prior to procedure COGNITIVE ABILITY: Alert and oriented PTED MOTIVATION TO LEARN: Interested FAMILY SUPPORT: High - Very involved in pt care IPATIENT LEARNS BEST BY: Individual Instruction FACTORS AFFECTING LEARNING: None PHYSICAL LIMITATIONS AFFECTING LEARNING: None LEARNING RESPONSE METHOD OF INSTRUCTION: Individual instruction PATIENT / FAMILY RESPONSE: Verbalizes understanding of: WORSENING CONDITION- Signs and symptoms of aworsening condition that warrant a call to the physician FOLLOW-UP PLAN: Patient instructed to call with any further issues SUPPLEMENTAL MATERIAL: Procedure Discharge Instructions REFERRAL (RECOMMENDATION): None * Ashley Whitmore RN - 08/02/2022 10:51 AM EDT PRE OP LEARNING ASSESSMENT PROCEDURE/SURGERY: GI PROCEDURES: EGD READINESS TO LEARN COGNITIVE ABILITY: Alert and oriented MOTIVATION TO LEARN: Eager Interested FAMILY SUPPORT: High - Very involved in pt care PATIENT LEARNS BEST BY: Individual Instruction FACTORS AFFECTING LEARNING: None PHYSICAL LIMITATIONS AFFECTING LEARNING: None Electronically Signed By: Ashley Whitmore RN In Department: GASTROENTEROLOGY documented in this encounterCommunity [facility] Medical Center03-20-2023 Miscellaneous Notes* Telephone Encounter - Alberta Candelaria MA - 06/26/2022 2:48 PM EDT Patient notified and voiced understanding. Patient given Dr. Verdugo's number Alberta Candelaria MA * Telephone Encounter - Yaw Signh MD - 06/26/2022 1:25 PM EDT Patient should make f/u appt with DR. Verdugo. * Telephone Encounter - Montserrat Varner RN - 06/26/2022 12:32 PM EDT Patient calling to say he was in [facility] ER on Friday 06/23 for a kidney stone which he thinks he passed on Sunday afternoon because he had blood in his urine. He no longer has blood in his urine. He says he does not notice any left sided flank pain because he is taking pain medication Gem and Ibuprofen as needed. He was given Dr. Danielle's name for follow up if symptoms don't resolve. He is asking if he should follow up with him or should he schedule ER follow up with PCP? Montserrat Varner RN documented in this encounterCommunity Regional Medical Center03-20-2023 History of Present illness Narrative* Sia Triana LPN - 06/26/2022 12:24 PM EDT Scan on 06/23/2022 9:54 PM by External Provider: Consultation - Emergency Medicine Scan on 06/23/2022 6:51 PM by External Provider: CT Scan documented in this encounterCommunity Regional Medical Center03-10-2023 Miscellaneous Notes* Telephone Encounter - Kelli Whitehead - 06/16/2022 9:06 AM EST Reason for call: Mr. Landa would like to schedule a f/u appointment with Queta Gleason. Home and cell number [phone] Diagnosis Malignant 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) Kelli Medina documented in this encounterCommunity Regional Medical Center03-03-2023 History of Present illness Narrative* Alix Hong RT(R) - 06/09/2022 3:00 PM EST Radiology Service Progress Note PATIENT NAME: Jacob Landa DATE OF SERVICE: June 09, 2022 TIME: 3:02 PM PATIENT IDENTITY VERIFICATION COMPLETED USING TWO (2) IDENTIFIERS: Name and Date of confirmedby patient verbally. FALL SCREENING: Has the patient had 2 falls in the last year or 1 fall with injury or currently using an Ambulatory Assistive Device (Walker, Cane, Wheelchair, Crutches, etc.)? No PATIENT GENDER DATA: Male PATIENT RELEVANT IMPLANT DATA REVIEWED: Yes RADIOLOGY DEPARTMENT: General X-ray: Exam(s) Completed: Rib X-Ray: Right PERIPHERAL IV DATA: Not applicable SIGNED BY: RT Jake(R) June 09, 2022 3:02 PM documented in this encounterCommunity Regional Medical Center03-03-2023 History of Present illness Narrative* Yaw Smith APRN.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 - 06/09/2022 2:49 PM EST Images from the original note were not included. Subjective HPI Nontoxic-appearing male presents urgent care chief plaint right rib injury. Duration of symptom 1 day. Associated symptoms pain. Patient states yesterday he leaned over his truck bed to pick a bucketup of ratchet straps when he felt a pop in his chest/rib area. Presents today with increasing pain.Denies any blunt trauma. States pain is exacerbated by movements. Improved by rest. Has not used any OTC medications. Denies any hemoptysis difficulty breathing fevers body aches chills cough chest pain shortness of breath change in bowel or bladder habits. Past medical history prescription medication use allergies reviewed. .Patient presents with: Rib Injury: R sided rib and chest wall injury x1 day PAST MEDICAL HISTORY Diagnosis Date Advance directive discussed with patient 02/09/2022 Discussed 02/2022, packets provided AK (actinic keratosis) 09/07/2020 One on the right forearm dorsal, three on the left forearm dorsal and one left side of face hear hair line about eye level. Tx cryo 09/2020 Aortic valve stenosis 07/26/2015 Asthma BPH (benign prostatic hyperplasia) 07/20/2014 Carpal tunnel syndrome of right wrist Coronary artery disease involving [place] coronary artery without angina pectoris Seeing Dr. Noland DDD (degenerative disc disease), lumbar 11/04/2019 Esophageal adenocarcinoma (HCC) 08/09/2020 Essential hypertension, benign GERD (gastroesophageal reflux disease) 07/12/2009 History of kidney stones 07/20/2014 Iron deficiency anemia due to chronic blood loss 05/25/2020 Iron malabsorption 05/25/2020 Malignant 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) 04/15/2020 Medicare annual wellness visit, subsequent 01/13/2021 Medical B eligibilty date 03/09/19 Date of last exam 01/13/2021 Mixed hyperlipidemia MRSA (methicillin resistant Staphylococcus aureus) 12/01/2016 treated with course of Linezolid beginning 10/29/16 Nonrheumatic aortic valve disorder On tube feeding diet 08/14/2020 History: 65 year old male s/p Adrián Roger esophagectomy, Pyloromyotomy, Jejunostomy tube placement for esophageal adenocarcinoma -Diet: Isosource 1.5 to 50 cc hour with 100 cc water flushes 8 times per day and Bene protein 3 times per day Removed 11/17/2020 Personal history of colonic polyps 12/27/2009 S/P CABG x 3 2002 S/P CABG x 4 07/23/2017 Situational depression 08/2014 Upper GI bleed 05/25/2020 PAST SURGICAL HISTORY Procedure Laterality Date ADENOIDECTOMY PRIMARY <AGE 11 Adenoidectomy AORTIC VALVE RECONSTRUCTION 03/03/2019 s/p TAVR BYP OTH/THN VEIN CAROTID-SUBCLAVIAN 2002 Bypass graft carotid subcl COLONOSCOPY FLX DX W/COLLJ SPEC WHEN PFRMD 02/28/2013 COLONOSCOPY FLX DX W/COLLJ SPEC WHEN PFRMD 12/06/2016 repeat in 5 yrs COLONOSCOPY SCRN NOT HIGH RISK 06/01/2020 COLONOSCOPY W/BIOPSY SINGLE/MULTIPLE 02/22/2007 Diminutive polyp distal [id number] ECHO 01/08/2021 EGD 04/15/2020 HEART CATHETERIZATION 12/2018 with 2 stents IMPLANT MESH OPN HERNIA RPR/DEBRIDEMENT CLOSURE 03/06/2007 LAPAROSCOPY SURG RPR INITIAL INGUINAL HERNIA 03/06/2007 umbilical NM CARDIAC STRESS TEST 01/08/2021 PAST SURGICAL HISTORY OF Right 2016 incision and drainage right axillary abscess REPAIR ANORECTAL FISTULA W/PLUG 12/06/2016 REPAIR FIRST ABDOMINAL WALL HERNIA 03/06/2007 right STENT - CORONARY 2014 x3 & x2 12/2018 TONSILLECTOMY PRIMARY/SECONDARY <AGE 11 Tonsillectomy TOT/SUB ESOPHAGECTOMY W/THORACOT 08/09/2020 [place] esophagectomy, jejunostomy tube placement ALLERGIES Environmental Allergies [Other] MEDICATIONS benzonatate (TESSALON PERLE) 100 mg capsule^Take 2 capsules by mouth three times daily as needed.^Disp: 40 capsule^Rfl: 0 guaiFENesin (MUCINEX) 600 mg 12 hr tablet^Take 2 tablets by mouth twice daily.^Disp: 24 tablet^Rfl:0 sodium chloride (SALINE MIST) 0.65 % nasal spray^Use 1 Hutchins in the nose as needed for cold/allergysymptoms.^Disp: 30 mL^Rfl: 1 iv contrast (will be provided with radiology test)^CT ABD/PEL -Inject, intravenously, once for 1 dose.No IV access, insert saline lock prior to the beginning of sedation, infusion, injection of imaging exam. Discontinue saline lock post exam. If Pt. has a central line or IVAD, may access for administration according to line specific nursing protocol. Once exam is complete flush line and de-accessaccording to line specific nursing protocol in the CT contrast administration guidelines link.^Disp: 1 Each^Rfl: 0 enteric contrast (will be provided with radiology test)^For CT ABD/PEL W IVCON Routine order Administer, As Directed One Time Only, via Oral, Rectal, both Oral and Rectal, Enteric Tube, Stoma or Indwelling Catheter, Enteric Contrast as designated per enteric contrast guidelines^Disp: 1 Each^Rfl: 0 iv contrast (will be provided with radiology test)^CT Chest W -Inject, intravenously, once for 1 dose.No IV access, insert saline lock prior to the beginning of sedation, infusion, injection of imaging exam. Discontinue saline lock post exam. If Pt. has a central line or IVAD, may access for administration according to line specific nursing protocol. Once exam is complete flush line and de-accessaccording to line specific nursing protocol in the CT contrast administration guidelines link.^Disp: 1 Each^Rfl: 0 atorvastatin (LIPITOR) 80 mg tablet^Take 1 tablet by mouth daily at bedtime.^Disp: 90 tablet^Rfl: 1 ezetimibe (ZETIA) 10 mg tablet^Take 1 tablet by mouth once daily.^Disp: 90 tablet^Rfl: [address] (PROTONIX) 40 mg tablet^Take 1 tablet by mouth twice daily.^Disp: 180 tablet^Rfl: 3 aspirin 81 mg chewable tablet^Take 1 tablet by mouth once daily.^Disp: ^Rfl: metoprolol tartrate, short acting, (LOPRESSOR) 25 mg tablet^Take 1 tablet by mouth twice daily.^Disp: ^Rfl: acetaminophen (TYLENOL) 500 mg tablet^Take 500 mg by mouth every 6 hours as needed.^Disp: ^Rfl: polyethylene glycol 3350 (MIRALAX, GLYCOLAX) 17 gram/dose powder^Take by mouth once daily. Dissolvedose in 4 - 8 ounces of liquid and take as directed.^Disp: ^Rfl: amLODIPine (NORVASC) 10 mg tablet^Take 1 tablet by mouth once daily.^Disp: 30 tablet^Rfl: 2 FAMILY HISTORY Problem Relation Age of Onset Cancer Mother OVARIAN AND THYROID CA Breast Cancer Mother Ischemic Heart Disease Father from Cerebral Hemmorrhage age 50 other (mva) Brother Cancer Sister Bone Marrow CA at 59 y/o Ischemic Heart Disease Sister 49 at 57y/o No Known Problems Sister Thyroid Sister Cancer Paternal Aunt cancer of colon other (unkown) Brother Social History Tobacco Use Smoking status: Never Smokeless tobacco: Never Vaping Use Vaping Use: Never used Substance Use Topics Alcohol use: Not Currently Comment: none Drug use: No BP 120/80 Pulse 70 Temp 36 C (96.8 F) Resp 18 Wt 90.7 kg (200 lb) SpO2 96% BMI (P) 28.96 kg/m Review of Systems Constitutional: Negative for chills, fever and malaise/fatigue. HENT: Negative for congestion, ear discharge, ear pain, sinus pain and sore throat. Eyes: Negative for blurred vision, pain, discharge and redness. Respiratory: Negative for cough, hemoptysis, sputum production, shortness of breath, wheezing and stridor. Cardiovascular: Negative for chest pain. Gastrointestinal: Negative for abdominal pain, diarrhea, nausea and vomiting. Musculoskeletal: Negative for myalgias. Skin: Negative for itching and rash. Neurological: Negative for dizziness and headaches. Objective Physical Exam Constitutional: General: He is not in acute distress. Appearance: He is not diaphoretic. HENT: Head: Normocephalic. Mouth/Throat: Mouth: Mucous membranes are moist. Pharynx: Oropharynx is clear. No oropharyngeal exudate or posterior oropharyngeal erythema. Eyes: Conjunctiva/sclera: Conjunctivae normal. Pupils: Pupils are equal, round, and reactive to light. Cardiovascular: Rate and Rhythm: Normal rate and regular rhythm. Heart sounds: Normal heart sounds. Pulmonary: Effort: Pulmonary effort is normal. No tachypnea, accessory muscle usage or respiratory distress. Breath sounds: Normal breath sounds. No stridor. No wheezing, rhonchi or rales. Chest: Chest wall: Tenderness present. Abdominal: Palpations: Abdomen is soft. Tenderness: There is no abdominal tenderness. Musculoskeletal: Arms: Cervical back: Normal range of motion and neck supple. No rigidity or tenderness. Comments: Pain with palpation to highlighted area. No deformities crepitus noted. Pain is reproducible with movements or palpation. No erythema edema or breaks in skin. Lymphadenopathy: Cervical: No cervical adenopathy. Skin: General: Skin is warm and dry. Neurological: Mental Status: He is alert and oriented to person, place, and time. ASSESSMENT/PLAN: 1. Rib injury - ICD9: 959.11, ICD10: S29.9XXA - XR RIBS/CHEST 3V AP RIB/OBLS/CXR RIGHT 1. No acute fracture 2. Bilateral pleural effusions. Left basilar atelectasis. No fractures noted on x-ray. Suspicious of muscle strain. Conservative therapies discussed with patient. Follow-up with PCP 3 to 5 days. Red flag prompt reevaluation discussed. Patient was educated on supportive therapies. Patient was instructed to immediately proceed to emergency room for any new,worsening, or symptoms lasting longer than anticipated. The patient's clinical presentation is otherwise unremarkable at this time. Based on exam and clinical finding, the patient is stable for discharge. Plan of care was discussed with patient. Patient verbalizes understanding and agrees to plan of care. This note was generated using [employer] software. It may contain errors in wording, punctuation, or spelling. Yaw Smith APRN.MOHINI documented in this encounterCommunity Regional Medical Center02-20-2023 Miscellaneous Notes* Telephone Encounter - Helena Urrutia - 05/29/2022 2:37 PM EST Spoke with patient and scheduled. Helena Urrutia * Telephone Encounter - Isa Valdez LPN - 05/29/2022 1:27 PM EST pt. Notified that his CT's are stable. No new concerning findings. Follow up in 3 months with CBC/CMP. PSS please reach out to pt. For scheduling. Isa Valdez LPN * Telephone Encounter - Mari Akhtar APRN.CNP - 05/29/2022 1:22 PM EST Please inform pt. that his CT's are stable. No new concerning findings. Follow up in 3 months with CBC/CMP. Thank you. Mari Akhtar APRN.MOHINI documented in this encounterCommunity Regional Medical Center02-16-2023 Nurse Note* Isa Valdez LPN - 05/25/2022 9:07 AM EST Est. Pt, 3 month f/u, discuss recent CT and labs. Pt. Had been on Lasix, last September or October ran out, never had refills. Dr. Jenkins OV notes in September 2021 informed to continue Lasix 20 mg daily. Nothing mentioned in October notes Isa Valdez LPN documented in this encounterCommunity Regional Medical Center02-16-2023 History of Present illness Narrative* Mari Akhtar APRN.MOHINI - 05/25/2022 8:52 AM EST Chief Complaint Patient presents with: Established Patient HPI: Jacob Landa is a 67 year old male who presents here today for follow up esophageal cancer. Per Dr. Jenkins's previous note: H/o coronary artery disease (CABG x4 vessels 2002; 2 stents at [facility] /2018; 3 stents [facility] 2014), HTN, hyperlipidemia, aortic valve stenosis (s/p TAVR bioprosthetic valve 02/2019), asthma, GERD, colon polyps, degenerative disc disease of the lumbar spine, BPH and history of kidney stones. Patient began having dysphagia and odynophagia several months prior to evaluation. He started on Protonix and had mild improvement in symptoms. EGD 04/15/2020: The examined jejunum was normal. The in the duodenum was normal. Scattered mild inflammation was found in the entire examined stomach. Biopsies were taken with a cold forceps for histology. Mildly severe esophagitis with no bleeding was found. Biopsies were taken with a cold forceps for histology. A large, fungating mass with bleeding and no stigmata of recent bleeding was found in the middle third of the esophagus, 32 to 38 cm from the incisors. The mass was partially obstructing and circumferential. Biopsies were taken with a cold forceps for histology. Pathology: FINAL DIAGNOSIS 1. Stomach, antrum, biopsy (A) - Gastric antral mucosa with no significant diagnostic alteration. - No morphological evidence of Helicobacter pylori organisms. 2. Esophagus, tumor at 32-38 cm, biopsy (B) - Adenocarcinoma, moderately differentiated. - See comment. 3. Esophagogastric junction, at 40 cm, biopsy (C) - Inflamed gastric cardia-type mucosa. - No evidence of intestinal metaplasia or dysplasia. COMMENT 2. The biopsy reveals moderately differentiated adenocarcinoma with at least lamina propria involvement (pT1a at least). There are focal features suspicious for submucosal invasion. CT Chest 04/15/2020: Lines, tubes, and devices: None. Lung parenchyma and airways: Trachea and central bronchi are patent with no endobronchial lesion. No focal consolidation. Few scattered cysts in the lower lobes. Scattered calcified granulomata consistent with remote granulomatous disease. Minimal subsegmental atelectasis dependent portions of the lower lobes. 2 mm nodule posterior right upper lobe (image 52) which may be calcified. 2 mm nodule abutting the left major fissure (image 75) which may represent a perifissural node. Otherwise, no suspicious pulmonary nodule. Pleural space: No pleural effusion. No pleural thickening. Lower neck, lymph nodes, and mediastinum: Moderate size hiatal hernia with suspected wall thickening above the hiatal hernia in the distal esophagus perhaps at the site of known neoplasm. Remainder of the esophagus is collapsed. Imaged thyroid gland is within normal limits. Calcified subcarinal and right hilar nodes consistent with remote granulomatous disease. No supraclavicular, axillary or hilar lymphadenopathy. Few nonspecific (short axis diameter <10 mm) mediastinal nodes are present, none enlarged by size criteria. Heart, pericardium, and thoracic vessels: Sternotomy for CABG and aortic valve replacement. Thoracic aorta is normal in caliber with mild atherosclerotic calcifications. Main pulmonary arteries normal caliber. Cardiac chambers are normal in size. No pericardial effusion or thickening. Bones and soft tissues: No suspicious osseous lesion. Mild endplate degenerative changes of the thoracic spine. Chest wall soft tissues are grossly within normal limits. Upper abdomen: Dedicated CT abdomen pelvis dictated separately. Rheostat Assembler (topogram) images: No additional findings. CT A/P 04/15/2020: Liver: No mass. Biliary: No bile duct dilation. Gallbladder is unremarkable. Spleen: No mass. No splenomegaly. Pancreas: No mass or duct dilation. Adrenals: 1 cm fatty density RIGHT adrenal gland consistent with a myelolipoma. Left adrenal gland is unremarkable. Kidneys: 2.5 cm medial LEFT renal density and 1 cm lower pole RIGHT renal density consistent with a cyst. GI tract: No dilation or wall thickening. Appendix appears normal. There is colonic diverticulosis. Lymph nodes: No abdominal or pelvic lymphadenopathy. Mesentery/Peritoneum: No ascites or mass. Retroperitoneum: No mass. Vasculature: The celiac axis and SMA are patent. The portal vein and branches, splenic vein, SMV, and hepatic veins are patent. Arterial atherosclerotic disease without aneurysm. Pelvis: No mass, ascites or fluid collection. Bones/Soft Tissues: Status post post RIGHT inguinal herniorrhaphy with mesh. Lower thorax: A chest CT performed will be reported separately. Rheostat Assembler (topogram) images: No additional findings. EGD/EUS 04/26/2020: A partially obstructing, malignant esophageal tumor was found to lower 30 esophagus. Gastric tumor in the cardia extension from distal esophageal tumor. Masses none lower third of the esophagus. -EUS staging T3 N1. At initial consultation visit here: He developed dysphagia and odynophagia several months ago. It was also associated with a lot of hiccuping. Currently he is able to swallow most foods except for meats. He has been able to get down some cooked vegetables and potatoes as long as pieces are very small and he chews well. Only he will have some regurgitation of clear fluid. No nausea per se. No longer having symptoms of reflux. His functional capacity is very good. He endorses dyspnea with heavy exertion but that has been stable. He does not have any symptoms of exertional chest pain or pressure. Mild lower extremity swelling that he attributes to previous vein harvesting. He is a lifelong non-smoker. He does not drink alcohol. Used to drink only very rarely. At CT scans on 07/14/2020 which showed no evidence of metastatic disease. Mild decrease in thickeningof the distal esophagus was noted. Previous therapy: 1) Concurrent chemotherapy/radiation with carboplatin and paclitaxel. 05/24 through 06/23/2020. Underwent [place] esophagectomy on 08/09/2020. Pathology: 1. Esophagus and stomach, distal thoracic esophagus and proximal stomach, esophagectomy (A): - Residual adenocarcinoma, status-post chemoradiation treatment, focally invading the adventitia. - Surgical resection margins negative for carcinoma. - Twenty-four lymph nodes, negative for carcinoma (0/24). - See synoptic report. 2. Soft tissue, pre-peritoneal fat pad, excision (B): - Fibroadipose connective tissue. 3. Lymph node, level VIII, excision (C): - One lymph node, negative for carcinoma (0/1). 4. Lymph node, level VII, excision (D): - One lymph node, negative for carcinoma (0/1). 5. Lymph nodes, left gastric lymph node packet, excision (E): - Two lymph nodes, negative for carcinoma (0/2). 6. Lymph node, ni-esophageal, excision (F): - One lymph node, negative for carcinoma (0/1). 7. Stomach, additional resection (G): - Gastric antral mucosa, negative for carcinoma. 8. Esophagus, final margin, resection (H): - Squamous mucosa and intestinal metaplasia, negative for carcinoma. Previous therapy: 1) Adjuvant nivolumab. Patient had CT scans March 09/2021. Following that he was observed to have a mild increase in serum creatinine 1.3 mg/dL. He was hospitalized on 03/25 for increasing shortness of breath. At that time creatinine was 2.5 mg/dL. Decreased to 1.8 mg/dL with hydration overnight. Repeat creatinine on 03/30 was 1.3 and then again 1.3 mg/dL on 04/11 and then 1.02 mg/dL on 05/05. The LEELA was attributed to immunotherapy but timing suggest may have also been due to IV contrast administration for CT scans on 03/09. Previously had an echocardiogram on 01/07/2021. Normal left ventricular function with EF estimated 55 to 60%. Right ventricle was noted to be normal with normal systolic function. Grade 1 diastolic dysfunction was observed. There was a normal-appearing bioprosthetic AV functioning valve with trivialAI. No new concerns today. Appetite:"Good." Wt. up. Energy level:"Some days it's really good. Other days I get my butt kicked." Denies fevers or recent illness. Resp:denies cough or sob Cardiac:denies chest pain/palpitations GI:denies abd pain, n/v, moving bowels regularly, occ. diarrhea with certain foods :denies dysuria/hematuria Extrem:denies pain Neuro:denies symptoms of neuropathy Skin:denies rashes/lesions Heme:denies bleeding The ROS is otherwise negative. Past medical history, appointments, medications, allergies reviewed. No changes. EXAM: BP (P) 117/69 Pulse (P) 66 Temp (P) 36.8 C (98.2 F) Ht (P) 177 cm (5' 9.69") Wt (P) 88.5 kg(195 lb) BMI (P) 28.23 kg/m APPEARANCE Well appearing, alert, in no acute distress, well-hydrated, well nourished. HEART RRR with normal S1 and S2, no murmurs LUNG clear to auscultation LYMPH NODES No cervical lymphadenopathy, No supraclavicular lymphadenopathy, and No axillary lymphadenopathy. ABDOMEN bowel sounds normoactive, soft, non-tender EXTREMITIES No edema NEURO Awake, alert and oriented x 3, Normal gait, and No involuntary motions. SKIN Skin color, texture, turgor normal, no suspicious rashes or lesions LABS: Component Latest Ref Rng & Units 11/02/2021 02/20/2022 05/22/2022 WBC 3.70 - 11.00 k/uL 4.00 4.77 5.81 RBC 4.20 - 6.00 m/uL 4.80 5.15 4.76 Hemoglobin 13.0 - 17.0 g/dL 12.9 (L) 14.0 12.8 (L) Hematocrit 39.0 - 51.0 % 39.9 42.7 39.8 MCV 80.0 - 100.0 fL 83.1 82.9 83.6 MCH 26.0 - 34.0 pg 26.9 27.2 26.9 MCHC 30.5 - 36.0 g/dL 32.3 32.8 32.2 RDW-CV 11.5 - 15.0 % 14.4 14.1 14.3 Platelet Count 150 - 400 k/uL 150 159 161 MPV 9.0 - 12.7 fL 9.5 9.5 9.9 Neut% % 74.9 77.0 71.7 Abs Neut (ANC) 1.45 - 7.50 k/uL 3.00 3.67 4.16 Lymph% % 13.5 10.7 12.0 Abs Lymph 1.00 - 4.00 k/uL 0.54 (L) 0.51 (L) 0.70 (L) [place]% % 8.0 7.3 8.3 Abs [place] <0.87 k/uL 0.32 0.35 0.48 Eosin% % 2.3 3.8 6.7 Abs Eosin <0.46 k/uL 0.09 0.18 0.39 Baso% % 0.8 0.6 1.0 Abs Baso <0.11 k/uL 0.03 0.03 0.06 Immature Gran % % 0.5 0.6 0.3 IMMATURE GRANS (ABS) <0.10 k/uL <0.03 0.03 <0.03 NRBC /100 WBC 0.0 0.0 0.0 Absolute nRBC <0.01 k/uL <0.01 <0.01 <0.01 DTYPE Auto Auto Auto Component Latest Ref Rng & Units 11/02/2021 02/20/2022 05/22/2022 Protein, Total 6.3 - 8.0 g/dL 6.3 6.5 6.3 Albumin 3.9 - 4.9 g/dL 3.9 4.0 4.1 Calcium 8.5 - 10.2 mg/dL 8.8 9.0 8.4 (L) Bilirubin, Total 0.2 - 1.3 mg/dL 0.5 0.8 0.6 Alkaline Phosphatase 38 - 113 U/L 105 102 94 AST 14 - 40 U/L 14 14 19 ALT 10 - 54 U/L 15 16 20 Glucose 74 - 99 mg/dL 98 96 93 BUN 9 - 24 mg/dL 13 12 13 Creatinine 0.73 - 1.22 mg/dL 1.08 1.04 0.96 Sodium 136 - 144 mmol/L 139 139 141 Potassium 3.7 - 5.1 mmol/L 4.0 4.2 3.7 Chloride 97 - 105 mmol/L 106 (H) 105 106 (H) CO2 22 - 30 mmol/L 23 27 23 Anion Gap 9 - 18 mmol/L 10 7 (L) 12 eGFR >=60 mL/min/1.73m 75 79 86 RADIOLOGY: CT's: Pending ASSESSMENT/PLAN: 1. 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 Per Dr. 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 -Tolerated therapy well overall, but was able to only get 4 doses preoperative chemotherapy secondary to cytopenias. -ypT3 N0 (0 of 29 LNs). -Most recent EGD was 02/2021. No lesions were observed in the esophagus. The anastomosis at 25 cm was widely patent and well-healed. No dilation was required. No gross lesions were identified in the rest of the examined GI tract down to the second portion of the duodenum. -He tolerated immunotherapy very well and has now completed a year's worth of therapy. Plan: -SCP. -Labs, CT scans then OV in about 4 months. 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 - No concerning findings on exam. - Pt. will be 2 years out from surgery August 2022. - Reviewed labs with pt. - CT's pending. - Continue follow up with PCP. - Follow up pending CT's. - Pt. aware to call office with any questions/concerns. The patient indicates understanding of these issues and agrees with the plan. All documentation from previous visit of 02/22/22-Dr. Jenkins/myself was copied and pasted, documentation has been reviewed and edited as necessary for today's visit. Mari Akhtar APRN.MOHINI documented in this encounterCommunity [facility]02-13-2023 History of Present illness Narrative* Helen Khanueger Beatrice, RT(R) - 05/22/2022 10:40 AM EST Radiology Service Progress Note DATE OF SERVICE: May 22, 2022 TIME: 3:54 PM PATIENT IDENTITY VERIFICATION COMPLETED USING TWO (2) STANDARD IDENTIFIERS: Name and Date of confirmed by patient verbally. FALL SCREENING: Has the patient had 2 falls in the last year or 1 fall with injury or currently using an Ambulatory Assistive Device (Walker, Cane, Wheelchair, Crutches, etc.)? No PATIENT GENDER DATA: Male PATIENT RELEVANT IMPLANT DATA REVIEWED: Yes ALLERGIES: Reviewed and unchanged CONTRAST ALLERGY: NO. EXAM: CT -CONTRAST INDUCED NEPHROPATHY RISK FACTORS: Patient age > 60 years CREATININE: Creatinine Date Value Ref Range Status 05/22/2022 0.96 0.73 - 1.22 mg/dL Final 02/20/2022 1.04 0.73 - 1.22 mg/dL Final 11/02/2021 1.08 0.73 - 1.22 mg/dL Final Estimated Glomerular Filtration Rate Date Value Ref Range Status 05/22/2022 86 >=60 mL/min/1.73m Final Comment: Estimated Glomerular Filtration Rate (eGFR) is calculated using the 2020 CKD-EPI creatinine equation. This equation utilizes serum creatinine, sex, and age as parameters. The creatinine assay has traceable calibration to isotope dilution- mass spectrometry. Refer to KDIGO guidelines for clinical interpretation. In patients with unstable renal function, e.g. those with acute kidney injury, the eGFRmay not accurately reflect actual GFR. eGFR- Date Value Ref Range Status 06/02/2021 >60 Final P.O.C.T. RESULTS: POC done: Yes, See Lab Tab May 22, 2022 TREATMENT: N/A PERIPHERAL IV DATA: Ambulatory: A peripheral IV was started in the Left antecubital site with a Angio cath: 22 gauge. RADIOLOGY DEPARTMENT: CT; Exam(s) Completed: Chest Abdomen Pelvis SIGNATURE: RT Geno(R) PATIENT NAME: Jacob Landa DATE: May 22, 2022 TIME: 3:54 PM documented in this encounterCommunity [facility] Center01-12-2023 Miscellaneous Notes* Telephone Encounter - Socrates Leonard RN - 04/20/2022 4:19 PM EST Protocol recommends ER Now. Patient agreeable. Reason for Disposition Passing pure blood or large blood clots (i.e., size > a dime) (Exception: evin or small strands) Answer Assessment - Initial Assessment Questions 1. COLOR of URINE: Passed a lot of dark red, more like dark brown blood an hour ago- doesn't know if there was urine in it. Void before that was maria color. Yesterday 3 pm had, lower back pain and center of groin pain- later at around 5 pm voided and felt sharp pain and noted dark color urine, almost brown. 2. ONSET: 5 pm yesterday. 3. EPISODES: 2-3 times. 4. PAIN with URINATION: Only time had pain was yesterday, with the sharp pain. Drinking water seemslike it goes right through him, and if waits too long urine starts leaking. 5. FEVER No 6. ASSOCIATED SYMPTOMS: Passing urine more frequently. 7. OTHER SYMPTOMS: Today no pain, just brown dark colored urine. Yesterday had lower back pain and very sharp pain with urination, felt like he was passing kidney stones. 8. : N/A Protocols used: Urine - Blood In-ADULT- documented in this encounterCommunity [facility] Center12-12-2022 Miscellaneous Notes* Telephone Encounter - Alberta Candelaria MA - 03/20/2022 10:36 AM EST Patient notified and voiced understanding. Alberta Candelaria MA * Telephone Encounter - Yaw Singh MD - 03/19/2022 2:06 PM EST Let patient know his testosterone level was pretty good at 455. I do not feel replacement is needed. documented in this encounterCommunity [facility] Center12-10-2022 Miscellaneous Notes* Telephone Encounter - Susan Sanchez - 03/18/2022 10:00 AM EST Patient given results and verbalized understanding of instructions given. Susan Sanchez * Telephone Encounter - Susan Sanchez - 03/18/2022 9:59 AM EST ----- Message from Edith Dickson APRN.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 sent at 03/18/2022 9:07 AM EST ----- Please advise patient he tested negative for COVID and Influenza. documented in this encounterCommunity [facility] Center12-09-2022 History of Present illness Narrative* Dana Humphries APRN.MOHINI - 03/17/2022 1:46 PM EST Subjective HPI Jacob presents today with three day complaint of pnd and sinus congestion. He has NOT had a fever, he is occasionally coughing but no breathing complaints. He is eating and drinking well, no sick contacts at home. He is taking otc cold med that is safe with htn at home and motrin nasal spray. Blood pressure 126/74, pulse 63, temperature 36.6 C (97.8 F), temperature source Left Tympanic, resp. rate 16, weight 88 kg (194 lb), SpO2 98 %. PAST MEDICAL HISTORY Diagnosis Date Advance directive discussed with patient 02/09/2022 Discussed 02/2022, packets provided AK (actinic keratosis) 09/07/2020 One on the right forearm dorsal, three on the left forearm dorsal and one left side of face hear hair line about eye level. Tx cryo 09/2020 Aortic valve stenosis 07/26/2015 Asthma BPH (benign prostatic hyperplasia) 07/20/2014 Carpal tunnel syndrome of right wrist Coronary artery disease involving [place] coronary artery without angina pectoris Seeing Dr. Noland DDD (degenerative disc disease), lumbar 11/04/2019 Esophageal adenocarcinoma (HCC) 08/09/2020 Essential hypertension, benign GERD (gastroesophageal reflux disease) 07/12/2009 History of kidney stones 07/20/2014 Iron deficiency anemia due to chronic blood loss 05/25/2020 Iron malabsorption 05/25/2020 Malignant 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) 04/15/2020 Medicare annual wellness visit, subsequent 01/13/2021 Medical B eligibilty date 03/09/19 Date of last exam 01/13/2021 Mixed hyperlipidemia MRSA (methicillin resistant Staphylococcus aureus) 12/01/2016 treated with course of Linezolid beginning 10/29/16 Nonrheumatic aortic valve disorder On tube feeding diet 08/14/2020 History: 65 year old male s/p [place] esophagectomy, Pyloromyotomy, Jejunostomy tube placement for esophageal adenocarcinoma -Diet: Isosource 1.5 to 50 cc hour with 100 cc water flushes 8 times per day and Bene protein 3 times per day Removed 11/17/2020 Personal history of colonic polyps 12/27/2009 S/P CABG x 3 2002 S/P CABG x 4 07/23/2017 Situational depression 08/2014 Upper GI bleed 05/25/2020 PAST SURGICAL HISTORY Procedure Laterality Date ADENOIDECTOMY PRIMARY <AGE 11 Adenoidectomy AORTIC VALVE RECONSTRUCTION 03/03/2019 s/p TAVR BYP OTH/THN VEIN CAROTID-SUBCLAVIAN 2002 Bypass graft carotid subcl COLONOSCOPY FLX DX W/COLLJ SPEC WHEN PFRMD 02/28/2013 COLONOSCOPY FLX DX W/COLLJ SPEC WHEN PFRMD 12/06/2016 repeat in 5 yrs COLONOSCOPY SCRN NOT HIGH RISK 06/01/2020 COLONOSCOPY W/BIOPSY SINGLE/MULTIPLE 02/22/2007 Diminutive polyp distal [id number] ECHO 01/08/2021 EGD 04/15/2020 HEART CATHETERIZATION 12/2018 with 2 stents IMPLANT MESH OPN HERNIA RPR/DEBRIDEMENT CLOSURE 03/06/2007 LAPAROSCOPY SURG RPR INITIAL INGUINAL HERNIA 03/06/2007 umbilical NM CARDIAC STRESS TEST 01/08/2021 PAST SURGICAL HISTORY OF Right 2016 incision and drainage right axillary abscess REPAIR ANORECTAL FISTULA W/PLUG 12/06/2016 REPAIR FIRST ABDOMINAL WALL HERNIA 03/06/2007 right STENT - CORONARY 2014 x3 & x2 12/2018 TONSILLECTOMY PRIMARY/SECONDARY <AGE 11 Tonsillectomy TOT/SUB ESOPHAGECTOMY W/THORACOT 08/09/2020 [place] esophagectomy, jejunostomy tube placement ALLERGIES Environmental Allergies [Other] MEDICATIONS iv contrast (will be provided with radiology test)^CT ABD/PEL -Inject, intravenously, once for 1 dose.No IV access, insert saline lock prior to the beginning of sedation, infusion, injection of imaging exam. Discontinue saline lock post exam. If Pt. has a central line or IVAD, may access for administration according to line specific nursing protocol. Once exam is complete flush line and de-accessaccording to line specific nursing protocol in the CT contrast administration guidelines link.^Disp: 1 Each^Rfl: 0 enteric contrast (will be provided with radiology test)^For CT ABD/PEL W IVCON Routine order Administer, As Directed One Time Only, via Oral, Rectal, both Oral and Rectal, Enteric Tube, Stoma or Indwelling Catheter, Enteric Contrast as designated per enteric contrast guidelines^Disp: 1 Each^Rfl: 0 iv contrast (will be provided with radiology test)^CT Chest W -Inject, intravenously, once for 1 dose.No IV access, insert saline lock prior to the beginning of sedation, infusion, injection of imaging exam. Discontinue saline lock post exam. If Pt. has a central line or IVAD, may access for administration according to line specific nursing protocol. Once exam is complete flush line and de-accessaccording to line specific nursing protocol in the CT contrast administration guidelines link.^Disp: 1 Each^Rfl: 0 atorvastatin (LIPITOR) 80 mg tablet^Take 1 tablet by mouth daily at bedtime.^Disp: 90 tablet^Rfl: 1 ezetimibe (ZETIA) 10 mg tablet^Take 1 tablet by mouth once daily.^Disp: 90 tablet^Rfl: [address] (PROTONIX) 40 mg tablet^Take 1 tablet by mouth twice daily.^Disp: 180 tablet^Rfl: 3 aspirin 81 mg chewable tablet^Take 1 tablet by mouth once daily.^Disp: ^Rfl: metoprolol tartrate, short acting, (LOPRESSOR) 25 mg tablet^Take 1 tablet by mouth twice daily.^Disp: ^Rfl: furosemide (LASIX) 20 mg tablet^Take 1 tablet by mouth once daily.^Disp: 30 tablet^Rfl: 2 acetaminophen (TYLENOL) 500 mg tablet^Take 500 mg by mouth every 6 hours as needed.^Disp: ^Rfl: polyethylene glycol 3350 (MIRALAX, GLYCOLAX) 17 gram/dose powder^Take by mouth once daily. Dissolvedose in 4 - 8 ounces of liquid and take as directed.^Disp: ^Rfl: amLODIPine (NORVASC) 10 mg tablet^Take 1 tablet by mouth once daily.^Disp: 30 tablet^Rfl: 2 sodium chloride (SALINE MIST) 0.65 % nasal spray^Use 1 [place] in the nose as needed for cold/allergysymptoms.^Disp: 30 mL^Rfl: 1 FAMILY HISTORY Problem Relation Age of Onset Cancer Mother OVARIAN AND THYROID CA Breast Cancer Mother Ischemic Heart Disease Father from Cerebral Hemmorrhage age 50 other (mva) Brother Cancer Sister Bone Marrow CA at 59 y/o Ischemic Heart Disease Sister 49 at 57y/o No Known Problems Sister Thyroid Sister Cancer Paternal Aunt cancer of colon other (unkown) Brother Social History Tobacco Use Smoking status: Never Smokeless tobacco: Never Vaping Use Vaping Use: Never used Substance Use Topics Alcohol use: Not Currently Comment: none Drug use: No Review of Systems HENT: Positive for congestion and sinus pain. Respiratory: Positive for cough. All other systems reviewed and are negative. Objective Physical Exam Constitutional: Appearance: Normal appearance. HENT: Head: Normocephalic and atraumatic. Right Ear: Tympanic membrane, ear canal and external ear normal. Left Ear: Tympanic membrane, ear canal and external ear normal. Nose: Congestion and rhinorrhea present. Mouth/Throat: Mouth: Mucous membranes are dry. Pharynx: Oropharyngeal exudate and posterior oropharyngeal erythema present. Eyes: Extraocular Movements: Extraocular movements intact. Pupils: Pupils are equal, round, and reactive to light. Cardiovascular: Rate and Rhythm: Normal rate and regular rhythm. Abdominal: General: Abdomen is flat. Palpations: Abdomen is soft. Musculoskeletal: General: Normal range of motion. Cervical back: Normal range of motion and neck supple. Lymphadenopathy: Cervical: No cervical adenopathy. Skin: General: Skin is warm and dry. Neurological: General: No focal deficit present. Mental Status: He is alert and oriented to person, place, and time. Psychiatric: Mood and Affect: Mood normal. ASSESSMENT/PLAN: 1. Sinus congestion - ICD9: 478.19, ICD10: R09.81 (primary diagnosis) Continue otc meds Saline nasal spray prn 2. Acute cough - ICD9: 786.2, ICD10: R05.1 Tea and honey - COVID WITH FLUA+B, ROUTINE Call with results Increase fluids Follow up if not improving or symptoms worsened Dana Humphries APRN.MOHINI documented in this encounterCommunity [facility]11-16-2022 History of Present illness Narrative* Mari Akhtar APRN.CNP - 02/22/2022 7:56 AM EST Chief Complaint Patient presents with: Established Patient HPI: Jacob Landa is a 66 year old male who presents here today for follow up esophageal cancer. Per Dr. Jenkins's previous note: H/o coronary artery disease (CABG x4 vessels 2002; 2 stents at [facility] /2018; 3 stents [facility] 2014), HTN, hyperlipidemia, aortic valve stenosis (s/p TAVR bioprosthetic valve 02/2019), asthma, GERD, colon polyps, degenerative disc disease of the lumbar spine, BPH and history of kidney stones. Patient began having dysphagia and odynophagia several months prior to evaluation. He started on Protonix and had mild improvement in symptoms. EGD 04/15/2020: The examined jejunum was normal. The in the duodenum was normal. Scattered mild inflammation was found in the entire examined stomach. Biopsies were taken with a cold forceps for histology. Mildly severe esophagitis with no bleeding was found. Biopsies were taken with a cold forceps for histology. A large, fungating mass with bleeding and no stigmata of recent bleeding was found in the middle third of the esophagus, 32 to 38 cm from the incisors. The mass was partially obstructing and circumferential. Biopsies were taken with a cold forceps for histology. Pathology: FINAL DIAGNOSIS 1. Stomach, antrum, biopsy (A) - Gastric antral mucosa with no significant diagnostic alteration. - No morphological evidence of Helicobacter pylori organisms. 2. Esophagus, tumor at 32-38 cm, biopsy (B) - Adenocarcinoma, moderately differentiated. - See comment. 3. Esophagogastric junction, at 40 cm, biopsy (C) - Inflamed gastric cardia-type mucosa. - No evidence of intestinal metaplasia or dysplasia. COMMENT 2. The biopsy reveals moderately differentiated adenocarcinoma with at least lamina propria involvement (pT1a at least). There are focal features suspicious for submucosal invasion. CT Chest 04/15/2020: Lines, tubes, and devices: None. Lung parenchyma and airways: Trachea and central bronchi are patent with no endobronchial lesion. No focal consolidation. Few scattered cysts in the lower lobes. Scattered calcified granulomata consistent with remote granulomatous disease. Minimal subsegmental atelectasis dependent portions of the lower lobes. 2 mm nodule posterior right upper lobe (image 52) which may be calcified. 2 mm nodule abutting the left major fissure (image 75) which may represent a perifissural node. Otherwise, no suspicious pulmonary nodule. Pleural space: No pleural effusion. No pleural thickening. Lower neck, lymph nodes, and mediastinum: Moderate size hiatal hernia with suspected wall thickening above the hiatal hernia in the distal esophagus perhaps at the site of known neoplasm. Remainder of the esophagus is collapsed. Imaged thyroid gland is within normal limits. Calcified subcarinal and right hilar nodes consistent with remote granulomatous disease. No supraclavicular, axillary or hilar lymphadenopathy. Few nonspecific (short axis diameter <10 mm) mediastinal nodes are present, none enlarged by size criteria. Heart, pericardium, and thoracic vessels: Sternotomy for CABG and aortic valve replacement. Thoracic aorta is normal in caliber with mild atherosclerotic calcifications. Main pulmonary arteries normal caliber. Cardiac chambers are normal in size. No pericardial effusion or thickening. Bones and soft tissues: No suspicious osseous lesion. Mild endplate degenerative changes of the thoracic spine. Chest wall soft tissues are grossly within normal limits. Upper abdomen: Dedicated CT abdomen pelvis dictated separately. Rheostat Assembler (topogram) images: No additional findings. CT A/P 04/15/2020: Liver: No mass. Biliary: No bile duct dilation. Gallbladder is unremarkable. Spleen: No mass. No splenomegaly. Pancreas: No mass or duct dilation. Adrenals: 1 cm fatty density RIGHT adrenal gland consistent with a myelolipoma. Left adrenal gland is unremarkable. Kidneys: 2.5 cm medial LEFT renal density and 1 cm lower pole RIGHT renal density consistent with a cyst. GI tract: No dilation or wall thickening. Appendix appears normal. There is colonic diverticulosis. Lymph nodes: No abdominal or pelvic lymphadenopathy. Mesentery/Peritoneum: No ascites or mass. Retroperitoneum: No mass. Vasculature: The celiac axis and SMA are patent. The portal vein and branches, splenic vein, SMV, and hepatic veins are patent. Arterial atherosclerotic disease without aneurysm. Pelvis: No mass, ascites or fluid collection. Bones/Soft Tissues: Status post post RIGHT inguinal herniorrhaphy with mesh. Lower thorax: A chest CT performed will be reported separately. Rheostat Assembler (topogram) images: No additional findings. EGD/EUS 04/26/2020: A partially obstructing, malignant esophageal tumor was found to lower 30 esophagus. Gastric tumor in the cardia extension from distal esophageal tumor. Masses none lower third of the esophagus. -EUS staging T3 N1. At initial consultation visit here: He developed dysphagia and odynophagia several months ago. It was also associated with a lot of hiccuping. Currently he is able to swallow most foods except for meats. He has been able to get down some cooked vegetables and potatoes as long as pieces are very small and he chews well. Only he will have some regurgitation of clear fluid. No nausea per se. No longer having symptoms of reflux. His functional capacity is very good. He endorses dyspnea with heavy exertion but that has been stable. He does not have any symptoms of exertional chest pain or pressure. Mild lower extremity swelling that he attributes to previous vein harvesting. He is a lifelong non-smoker. He does not drink alcohol. Used to drink only very rarely. At CT scans on 07/14/2020 which showed no evidence of metastatic disease. Mild decrease in thickeningof the distal esophagus was noted. Previous therapy: 1) Concurrent chemotherapy/radiation with carboplatin and paclitaxel. 05/24 through 06/23/2020. Underwent [place] esophagectomy on 08/09/2020. Pathology: 1. Esophagus and stomach, distal thoracic esophagus and proximal stomach, esophagectomy (A): - Residual adenocarcinoma, status-post chemoradiation treatment, focally invading the adventitia. - Surgical resection margins negative for carcinoma. - Twenty-four lymph nodes, negative for carcinoma (0/24). - See synoptic report. 2. Soft tissue, pre-peritoneal fat pad, excision (B): - Fibroadipose connective tissue. 3. Lymph node, level VIII, excision (C): - One lymph node, negative for carcinoma (0/1). 4. Lymph node, level VII, excision (D): - One lymph node, negative for carcinoma (0/1). 5. Lymph nodes, left gastric lymph node packet, excision (E): - Two lymph nodes, negative for carcinoma (0/2). 6. Lymph node, ni-esophageal, excision (F): - One lymph node, negative for carcinoma (0/1). 7. Stomach, additional resection (G): - Gastric antral mucosa, negative for carcinoma. 8. Esophagus, final margin, resection (H): - Squamous mucosa and intestinal metaplasia, negative for carcinoma. Current therapy: 1) Adjuvant nivolumab. Patient had CT scans March 09/2021. Following that he was observed to have a mild increase in serum creatinine 1.3 mg/dL. He was hospitalized on 03/25 for increasing shortness of breath. At that time creatinine was 2.5 mg/dL. Decreased to 1.8 mg/dL with hydration overnight. Repeat creatinine on 03/30 was 1.3 and then again 1.3 mg/dL on 04/11 and then 1.02 mg/dL on 05/05. The LELEA was attributed to immunotherapy but timing suggest may have also been due to IV contrast administration for CT scans on 03/09. Previously had an echocardiogram on 01/07/2021. Normal left ventricular function with EF estimated 55 to 60%. Right ventricle was noted to be normal with normal systolic function. Grade 1 diastolic dysfunction was observed. There was a normal-appearing bioprosthetic AV functioning valve with trivialAI. No new concerns today. Appetite:"Good. I can taste things again." Wt. up. Energy level:"I will have to rest up every 3 days." Denies fevers or recent illness. Resp:denies cough or sob Cardiac:denies chest pain/palpitations GI:denies abd pain, n/v, moving bowels regularly :denies dysuria/hematuria Extrem:denies pain Neuro:denies symptoms of neuropathy Skin:denies rashes/lesions Heme:denies bleeding The ROS is otherwise negative. Past medical history, appointments, medications, allergies reviewed. No changes. EXAM: BP 120/84 Pulse 63 Temp 36.6 C (97.9 F) (Temporal) Wt 85.5 kg (188 lb 8 oz) SpO2 99% BMI 28.24 kg/m APPEARANCE Well appearing, alert, in no acute distress, well-hydrated, well nourished. HEART RRR with normal S1 and S2, no murmurs LUNG clear to auscultation LYMPH NODES No cervical lymphadenopathy, No supraclavicular lymphadenopathy, and No axillary lymphadenopathy. ABDOMEN bowel sounds normoactive, soft, non-tender, non-distended EXTREMITIES No edema NEURO Awake, alert and oriented x 3, Normal gait, and No involuntary motions. SKIN Skin color, texture, turgor normal, no suspicious rashes or lesions LABS: Component Latest Ref Rng & Units 10/03/2021 10/20/2021 11/02/2021 02/20/2022 WBC 3.70 - 11.00 k/uL 5.05 3.94 4.00 4.77 RBC 4.20 - 6.00 m/uL 4.63 4.80 4.80 5.15 Hemoglobin 13.0 - 17.0 g/dL 12.7 (L) 13.0 12.9 (L) 14.0 Hematocrit 39.0 - 51.0 % 38.9 (L) 40.3 39.9 42.7 MCV 80.0 - 100.0 fL 84.0 84.0 83.1 82.9 MCH 26.0 - 34.0 pg 27.4 27.1 26.9 27.2 MCHC 30.5 - 36.0 g/dL 32.6 32.3 32.3 32.8 RDW-CV 11.5 - 15.0 % 14.6 14.6 14.4 14.1 Platelet Count 150 - 400 k/uL 151 148 (L) 150 159 MPV 9.0 - 12.7 fL 10.0 9.5 9.5 9.5 Neut% % 74.4 71.0 74.9 77.0 Abs Neut (ANC) 1.45 - 7.50 k/uL 3.76 2.80 3.00 3.67 Lymph% % 13.1 13.7 13.5 10.7 Abs Lymph 1.00 - 4.00 k/uL 0.66 (L) 0.54 (L) 0.54 (L) 0.51 (L) [place]% % 7.9 11.2 8.0 7.3 Abs [place] <0.87 k/uL 0.40 0.44 0.32 0.35 Eosin% % 3.2 2.3 2.3 3.8 Abs Eosin <0.46 k/uL 0.16 0.09 0.09 0.18 Baso% % 1.0 1.3 0.8 0.6 Abs Baso <0.11 k/uL 0.05 0.05 0.03 0.03 Immature Gran % % 0.4 0.5 0.5 0.6 IMMATURE GRANS (ABS) <0.10 k/uL <0.03 <0.03 <0.03 0.03 NRBC /100 WBC 0.0 0.0 0.0 0.0 Absolute nRBC <0.01 k/uL <0.01 <0.01 <0.01 <0.01 DTYPE Auto Auto Auto Auto Component Latest Ref Rng & Units 10/03/2021 10/20/2021 11/02/2021 02/20/2022 Protein, Total 6.3 - 8.0 g/dL 6.0 (L) 6.3 6.3 6.5 Albumin 3.9 - 4.9 g/dL 3.8 (L) 3.8 (L) 3.9 4.0 Calcium 8.5 - 10.2 mg/dL 8.7 8.7 8.8 9.0 Bilirubin, Total 0.2 - 1.3 mg/dL 0.7 0.4 0.5 0.8 Alkaline Phosphatase 38 - 113 U/L 94 102 105 102 AST 14 - 40 U/L 16 17 14 14 ALT 10 - 54 U/L 16 19 15 16 Glucose 74 - 99 mg/dL 93 54 (L) 98 96 BUN 9 - 24 mg/dL 16 14 13 12 Creatinine 0.73 - 1.22 mg/dL 1.07 1.01 1.08 1.04 Sodium 136 - 144 mmol/L 141 141 139 139 Potassium 3.7 - 5.1 mmol/L 4.1 3.6 (L) 4.0 4.2 Chloride 97 - 105 mmol/L 107 (H) 109 (H) 106 (H) 105 CO2 22 - 30 mmol/L 23 21 (L) 23 27 Anion Gap 9 - 18 mmol/L 11 11 10 7 (L) eGFR >=60 mL/min/1.73m 76 82 75 79 RADIOLOGY: CT chest 02/20/22: IMPRESSION: 1. Stable 3 mm right pulmonary nodule. 2. Stable bilateral pleural effusions. 3. Sequela of prior granulomatous exposure. CT abd/pelvis 02/20/22: IMPRESSION: 1. No new mass or lymphadenopathy in the abdomen or pelvis 2. Bilateral nonobstructing renal calculi. There are a few tiny calcifications along the posterior wall of the bladder which may represent recently passed stones. ASSESSMENT/PLAN: 1. 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 Per Dr. 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 -Tolerated therapy well overall, but was able to only get 4 doses preoperative chemotherapy secondary to cytopenias. -ypT3 N0 (0 of 29 LNs). -Most recent EGD was 02/2021. No lesions were observed in the esophagus. The anastomosis at 25 cm was widely patent and well-healed. No dilation was required. No gross lesions were identified in the rest of the examined GI tract down to the second portion of the duodenum. -He tolerated immunotherapy very well and has now completed a year's worth of therapy. Plan: -SCP. -Labs, CT scans then OV in about 4 months. 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 - No concerning findings on exam. - Pt. 1 1/2 years out from surgery. - Reviewed labs/CT's with pt. - Continue follow up with PCP. - CT chest/abd/pelvis/CBC/CMP in 3 months. - Follow up after above. - Pt. aware to call office with any questions/concerns. The patient indicates understanding of these issues and agrees with the plan. All documentation from previous visit of 12/01/21-Dr. Jenkins/myself was copied and pasted, documentation has been reviewed and edited as necessary for today's visit. Mari Akhtar APRN.CNP documented in this encounterCommunity [facility]11-15-2022 Miscellaneous Notes* Telephone Encounter - Yaw Singh MD - 02/21/2022 7:23 PM EST The following approved medication requests have been transmitted electronically. Requested Prescriptions Signed Prescriptions Disp Refills atorvastatin (LIPITOR) 80 mg tablet 90 tablet 1 Sig: Take 1 tablet by mouth daily at bedtime. Authorizing Provider: YAW SINGH ezetimibe (ZETIA) 10 mg tablet 90 tablet 1 Sig: Take 1 tablet by mouth once daily. Authorizing Provider: YAW SINGH MD * Telephone Encounter - Ani Guido LPN - 02/21/2022 11:44 AM EST Patient notified. Verbalized understanding. States just recently started back up on the medication,states he was told to hold medication for surgeries he has had. Was never advised to restart those medications, states on his own he restarted taking them. States still has medications to use. Refills can be sent to [facility] in [place] * Telephone Encounter - Yaw Singh MD - 02/21/2022 11:16 AM EST Let patient know the prostate lab, CBC, iron studies, B12, Mg, Urine lab, electrolytes, liver function and kidney functions were all ok. Lipid panel showed Trigs ok at 88, HDL ok at 49 and LDL elevated at 157 ( goal less then 70 with heart disease). It looks like he is no longer taking the atorvastatin 80 mg a day and Zetia 10 mg a day and should get back on these. See if ok for us to send in scripts for him and to where. documented in this encounterCommunity [facility] Center11-14-2022 History of Present illness Narrative* Beatrice Zuleta, RT(R) - 02/20/2022 9:00 AM EST Radiology Service Progress Note DATE OF SERVICE: February 20, 2022 TIME: 12:40 PM PATIENT IDENTITY VERIFICATION COMPLETED USING TWO (2) STANDARD IDENTIFIERS: Name and Date of confirmed by patient verbally. FALL SCREENING: Has the patient had 2 falls in the last year or 1 fall with injury or currently using an Ambulatory Assistive Device (Walker, Cane, Wheelchair, Crutches, etc.)? No PATIENT GENDER DATA: Male PATIENT RELEVANT IMPLANT DATA REVIEWED: Yes ALLERGIES: Reviewed and unchanged CONTRAST ALLERGY: NO. EXAM: CT -CONTRAST INDUCED NEPHROPATHY RISK FACTORS: Patient age > 60 years CREATININE: Creatinine Date Value Ref Range Status 02/20/2022 1.04 0.73 - 1.22 mg/dL Final 11/02/2021 1.08 0.73 - 1.22 mg/dL Final 10/20/2021 1.01 0.73 - 1.22 mg/dL Final Estimated Glomerular Filtration Rate Date Value Ref Range Status 02/20/2022 79 >=60 mL/min/1.73m Final Comment: Estimated Glomerular Filtration Rate (eGFR) is calculated using the 2020 CKD-EPI creatinine equation. This equation utilizes serum creatinine, sex, and age as parameters. The creatinine assay has traceable calibration to isotope dilution- mass spectrometry. Refer to KDIGO guidelines for clinical interpretation. In patients with unstable renal function, e.g. those with acute kidney injury, the eGFRmay not accurately reflect actual GFR. eGFR- Date Value Ref Range Status 06/02/2021 >60 Final P.O.C.T. RESULTS: POC done: Yes, See Lab Tab February 20, 2022 TREATMENT: N/A PERIPHERAL IV DATA: Ambulatory: A peripheral IV was started in the Left antecubital site with a Angio cath: 22 gauge. RADIOLOGY DEPARTMENT: CT; Exam(s) Completed: Chest Abdomen Pelvis SIGNATURE: RT Geno(R) PATIENT NAME: Jacob Landa DATE: February 20, 2022 TIME: 12:40 PM Radiology Service Progress Note DATE OF SERVICE: February 20, 2022 TIME: 12:40 PM PATIENT IDENTITY VERIFICATION COMPLETED USING TWO (2) STANDARD IDENTIFIERS: Name and Date of confirmed by patient verbally. FALL SCREENING: Has the patient had 2 falls in the last year or 1 fall with injury or currently using an Ambulatory Assistive Device (Walker, Cane, Wheelchair, Crutches, etc.)? No PATIENT GENDER DATA: Male PATIENT RELEVANT IMPLANT DATA REVIEWED: Yes ALLERGIES: Reviewed and unchanged CONTRAST ALLERGY: NO. EXAM: CT -CONTRAST INDUCED NEPHROPATHY RISK FACTORS: Patient age > 60 years CREATININE: Creatinine Date Value Ref Range Status 02/20/2022 1.04 0.73 - 1.22 mg/dL Final 11/02/2021 1.08 0.73 - 1.22 mg/dL Final 10/20/2021 1.01 0.73 - 1.22 mg/dL Final Estimated Glomerular Filtration Rate Date Value Ref Range Status 02/20/2022 79 >=60 mL/min/1.73m Final Comment: Estimated Glomerular Filtration Rate (eGFR) is calculated using the 2020 CKD-EPI creatinine equation. This equation utilizes serum creatinine, sex, and age as parameters. The creatinine assay has traceable calibration to isotope dilution- mass spectrometry. Refer to KDIGO guidelines for clinical interpretation. In patients with unstable renal function, e.g. those with acute kidney injury, the eGFRmay not accurately reflect actual GFR. eGFR- Date Value Ref Range Status 06/02/2021 >60 Final P.O.C.T. RESULTS: POC done: Yes, See Lab Tab February 20, 2022 TREATMENT: N/A PERIPHERAL IV DATA: Ambulatory: A peripheral IV was started in the Left antecubital site with a Angio cath: 22 gauge. 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 check with oncology to see if any issues taking testosterone replacement if found to be low and if not let Dr. Singh know so test can be ordered. documented in this encounterCommunity [facility] Center11-03-2022 History of Present illness Narrative* Yaw Singh MD - 02/09/2022 11:20 AM EDT Medicare Yearly Visit Medical B eligibilty date 03/09/19 Date of last exam 01/13/2021 PAST MEDICAL HISTORY PAST MEDICAL HISTORY Diagnosis Date Aortic valve stenosis 07/26/2015 Arthritis ASHD (arteriosclerotic heart disease) 2002 CABG 4 in '03; 3 stents LAD in '15 Asthma Atherosclerotic heart disease of [place] coronary artery with other forms of angina pectoris (HCC) Benign neoplasm of colon CAD (coronary artery disease) s/p CABG and multiple stents Calculus of kidney Carpal tunnel syndrome of right wrist Coronary artery disease involving [place] coronary artery without angina pectoris Seeing Dr. Noland Essential hypertension, benign Malignant 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) 04/15/2020 MRSA (methicillin resistant Staphylococcus aureus) 12/01/2016 treated with course of Linezolid beginning 10/29/16 Nonrheumatic aortic valve disorder Other and unspecified hyperlipidemia Pure hypercholesterolemia S/P CABG x 3 2002 Situational depression 08/2014 Upper GI bleed 05/25/2020 PAST SURGICAL HISTORY PAST SURGICAL HISTORY Procedure Laterality Date AORTIC VALVE RECONSTRUCTION 03/03/2019 s/p TAVR BYPASS GRAFT OTHR,CAROT-SUBCL 2003 Bypass graft carotid subcl COLONOSCOP W/ OR W/O BRSH SPEC 02/28/2013 COLONOSCOP W/ OR W/O BRSH SPEC 12/06/2016 repeat in 5 yrs COLONOSCOPY SCRN NOT HIGH RISK 06/01/2020 COLONOSCOPY W/BX 02/22/2007 Diminutive polyp distal [id number] EGD 04/15/2020 HEART CATHETERIZATION 12/2018 with 2 stents LAP REPAIR INTIAL INGUINAL HERNIA 03/06/2007 umbilical PAST SURGICAL HISTORY OF Right 2016 incision and drainage right axillary abscess REMOVAL ADENOIDS,PRIMARY,<12 Y/O Adenoidectomy REMOVAL OF TONSILS,<12 Y/O Tonsillectomy REPAIR ANORECTAL FISTULA W/PLUG 12/06/2016 REPAIR INCIS HERNIA W MESH 03/06/2007 REPAIR INCISIONAL HERNIA,REDUCIBLE 03/06/2007 right STENT - CORONARY 2014 x3 & x2 12/2018 TOT/SUB ESOPHAGECTOMY W/THORACOT 08/09/2020 [place] esophagectomy, jejunostomy tube placement ALLERGIES: Environmental Allergies [Other] Medications reviewed: Yes FAMILY HISTORY FAMILY HISTORY Problem Relation Age of Onset Cancer Mother OVARIAN AND THYROID CA Breast Cancer Mother Ischemic Heart Disease Father from Cerebral Hemmorrhage age 50 other (mva) Brother Cancer Sister Bone Marrow CA at 59 y/o Ischemic Heart Disease Sister 49 at 57y/o No Known Problems Sister Thyroid Sister Cancer Paternal Aunt cancer of colon other (unkown) Brother SOCIAL HISTORY: SOCIAL HISTORY Social History Tobacco Use Smoking status: Never Smoker Smokeless tobacco: Never Used Substance Use Topics Alcohol use: Yes Comment: none Drug use: No Jacob likes to exercise by walking and staying active around house. He watches his diet for sodium, low fat and low cholesterol generally not very much. List of current specialists seen: Ore Puncher- Dr. Noland Oncologist- Dr. Jenkins Thoracic surgery End of Live Planning discussed including patients advanced directive wishes: Yes I am willing to follow Jacob's advanced directives. PHQ-2 / Depression screen Depression screening tool completed and reviewed. Based on score and interview, patient is not at risk for depression. Screening tool discussed with patient, and I recommended no further interventionat this time. Functional Ability/Safety Screen 1. Was the patient's timed Up and Go test unsteady or longer than 30 seconds? No 2. Does the patient need help with the phone, transportation, shopping,preparing meals, housework, laundry, medications or managing money? No 3. Does your home have rugs in the hallway, lack of grab bars in the bathroom (Y), lack of handrails on the stairs or have poor lighting? No Hearing Evaluation: normal PHYSICAL EXAM BP 122/78 (BP Site: Left Arm, BP Position: Sitting, BP Cuff Size: Regular Adult) Pulse 72 Resp 16 Ht 174 cm (5' 8.5") Wt 83 kg (183 lb) BMI 27.42 kg/m Alert and oriented X 3: YES Body mass index is 27.42 kg/m . ASSESSMENT/PLAN: 66 year old male The following prevention plan was discussed during the office visit and provided to the patient: See below. Chief Complaint Patient presents with: Medicare Wellness Exam HPI Jacob Landa is a 66 year old male who presents here today for extensive Visit. Patient has a Hx of CAD, GERD, , hyperlipidemia, Iron Def Anemia, situational depression , esophageal cancer, as well as those reviewed and addressed below and in ROS. Patient has been doing well. Since last being seen no ER visits or hospitalizatioins Past medical history, appointments, medications, allergies reviewed. Previous Medical History PAST MEDICAL HISTORY Diagnosis Date Aortic valve stenosis 07/26/2015 Arthritis ASHD (arteriosclerotic heart disease) 2002 CABG 4 in '03; 3 stents LAD in '15 Asthma Atherosclerotic heart disease of [place] coronary artery with other forms of angina pectoris (HCC) Benign neoplasm of colon CAD (coronary artery disease) s/p CABG and multiple stents Calculus of kidney Carpal tunnel syndrome of right wrist Coronary artery disease involving [place] coronary artery without angina pectoris Seeing Dr. Noland Essential hypertension, benign Malignant 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) 04/15/2020 MRSA (methicillin resistant Staphylococcus aureus) 12/01/2016 treated with course of Linezolid beginning 10/29/16 Nonrheumatic aortic valve disorder On tube feeding diet 08/14/2020 History: 65 year old male s/p [place] esophagectomy, Pyloromyotomy, Jejunostomy tube placement for esophageal adenocarcinoma -Diet: Isosource 1.5 to 50 cc hour with 100 cc water flushes 8 times per day and Bene protein 3 times per day Removed 11/17/2020 Other and unspecified hyperlipidemia Pure hypercholesterolemia S/P CABG x 3 2002 Situational depression 08/2014 Upper GI bleed 05/25/2020 Previous Surgical History PAST SURGICAL HISTORY Procedure Laterality Date ADENOIDECTOMY PRIMARY <AGE 11 Adenoidectomy AORTIC VALVE RECONSTRUCTION 03/03/2019 s/p TAVR BYP OTH/THN VEIN CAROTID-SUBCLAVIAN 2002 Bypass graft carotid subcl COLONOSCOPY FLX DX W/COLLJ SPEC WHEN PFRMD 02/28/2013 COLONOSCOPY FLX DX W/COLLJ SPEC WHEN PFRMD 12/06/2016 repeat in 5 yrs COLONOSCOPY SCRN NOT HIGH RISK 06/01/2020 COLONOSCOPY W/BIOPSY SINGLE/MULTIPLE 02/22/2007 Diminutive polyp distal [id number] ECHO 01/08/2021 EGD 04/15/2020 HEART CATHETERIZATION 12/2018 with 2 stents IMPLANT MESH OPN HERNIA RPR/DEBRIDEMENT CLOSURE 03/06/2007 LAPAROSCOPY SURG RPR INITIAL INGUINAL HERNIA 03/06/2007 umbilical NM CARDIAC STRESS TEST 01/08/2021 PAST SURGICAL HISTORY OF Right 2016 incision and drainage right axillary abscess REPAIR ANORECTAL FISTULA W/PLUG 12/06/2016 REPAIR FIRST ABDOMINAL WALL HERNIA 03/06/2007 right STENT - CORONARY 2014 x3 & x2 12/2018 TONSILLECTOMY PRIMARY/SECONDARY <AGE 11 Tonsillectomy TOT/SUB ESOPHAGECTOMY W/THORACOT 08/09/2020 Adri[facility] Roger esophagectomy, jejunostomy tube placement Family History FAMILY HISTORY Problem Relation Age of Onset Cancer Mother OVARIAN AND THYROID CA Breast Cancer Mother Ischemic Heart Disease Father from Cerebral Hemmorrhage age 50 other (mva) Brother Cancer Sister Bone Marrow CA at 59 y/o Ischemic Heart Disease Sister 49 at 57y/o No Known Problems Sister Thyroid Sister Cancer Paternal Aunt cancer of colon other (unkown) Brother Patient Allergies ALLERGIES Allergen Reactions Environmental Aller* Other: See Comments Cats, dogs, dust mites, trees, grasses, weeds, ragweed Current Medications Current Outpatient Medications on File Prior to Visit Medication Sig pantoprazole DR (PROTONIX) 40 mg tablet Take 1 tablet by mouth twice daily. aspirin 81 mg chewable tablet Take 1 tablet by mouth once daily. metoprolol tartrate, short acting, (LOPRESSOR) 25 mg tablet Take 1 tablet by mouth twice daily. furosemide (LASIX) 20 mg tablet Take 1 tablet by mouth once daily. potassium chloride ER (K-DUR, KLOR-CON) 20 mEq tablet Take 1 tablet by mouth once daily. acetaminophen (TYLENOL) 500 mg tablet Take 500 mg by mouth every 6 hours as needed. polyethylene glycol 3350 (MIRALAX, GLYCOLAX) 17 gram/dose powder Take by mouth once daily. Dissolvedose in 4 - 8 ounces of liquid and take as directed. atorvastatin (LIPITOR) 80 mg tablet Take 1 tablet by mouth daily at bedtime. ezetimibe (ZETIA) 10 mg tablet Take 1 tablet by mouth once daily. amLODIPine (NORVASC) 10 mg tablet Take 1 tablet by mouth once daily. Current Facility-Administered Medications on File Prior to Visit Medication perflutren lipid microspheres 1.3 mL in NaCl (PF) 0.9% 10 mL injection (DEFINITY) sodium chloride 0.9 % (flush) 10 mL (BD POSIFLUSH) Social History Social History Tobacco Use Smoking status: Never Smokeless tobacco: Never Vaping Use Vaping Use: Never used Substance Use Topics Alcohol use: Not Currently Comment: none Drug use: No Review of Symptoms REVIEW OF SYSTEMS GENERAL: No weight loss, malaise or fevers HEENT: Negative for frequent or significant headaches, No changes in hearing or vision, no nose bleeds or other nasal problems NECK: Negative for lumps, goiter, pain and significant neck swelling RESPIRATORY: Negative for cough, hemoptysis, wheezing, COPD, dyspnea or shortness of breath CARDIOVASCULAR: Negative for chest pain, leg swelling, hypertension, CHF or palpitations GI: No nausea, vomiting, continues to get diarrhea from time to time and will take imodium and goesaway again and seems mostly since his esophageal surgery. No heartburn or reflux symptoms, and no blood : No history of dysuria, blood MUSCULOSKELETAL: Negative for joint pain or swelling, back pain or muscle pain SKIN: Negative for lesions, rash, and itching PSYCH: Negative for sleep disturbance, mood disorder and recent psychosocial stressors HEMATOLOGY/LYMPHOLOGY: Negative for prolonged bleeding, bruising easily or swollen nodes ENDOCRINE: Negative for cold or heat intolerance, polyuria, polydipsia and goiter NEURO: No history of headaches, syncope, paralysis, seizures or tremors EXAM: BP 122/78 (BP Site: Left Arm, BP Position: Sitting, BP Cuff Size: Regular Adult) Pulse 72 Resp 16 Ht 174 cm (5' 8.5") Wt 83 kg (183 lb) BMI 27.42 kg/m Last 4 Encounter Wt Readings: Date: Wt: 02/09/2022 83 kg (183 lb) 12/01/2021 83.9 kg (185 lb) 11/09/2021 83.5 kg (184 lb) 11/09/2021 83.9 kg (185 lb) General Appearance: Well appearing, alert, in no acute distress, well-hydrated, well nourished.. Skin: Skin color, texture, turgor normal, no suspicious rashes or lesions. Head: Normocephalic, no masses, lesions, tenderness or abnormalities. Eyes: Anicteric sclera. Pupils are equally round and reactive to light. Extraocular movements are intact. . Ears: External ears, TM's normal, canals clear. Neck: Supple, no adenopathy; thyroid symmetric, normal size, no bruits. Lungs: Lungs clear to auscultation. No wheezing, rhonchi, rales.. Heart: RRR without murmur, gallop, or rubs. No ectopy. Abdomen: Normal abdominal exam, Abdomen soft, non-tender. Bowel sounds normal. No masses, organomegaly. Extremities: No deformities, edema, skin discoloration, Good capillary refill. . Musculoskeletal: Muscular strength intact, No joint swelling, deformity, or tenderness. Peripheral Pulses: Normal. Neurologic: Gait normal. Reflexes normal and symmetric. Sensation to light touch and nc 2-12 intact.. Genitalia: Normal, No urethral discharge. Scrotum normal to palpation. No hernia., glans of penis is erythematous with some skin pealing. No warmth or tenderness. No satellite lesions. . Rectal: Normal exam. Prostate slightly enlarged but smooth firm capsule. Health Maintenance List COVID-19 VACCINE(1) Never done SHINGRIX VACCINE(1 of 2) Never done BP CONTROLLED (<130/80) due on 11/03/2020 ADVANCE DIRECTIVE DISCUSSION Never done INFLUENZA(1) due on 12/08/2021 ANNUAL PCP TEAM CHRONIC DISEASE VISIT due on 07/19/2022 LDL CHOLESTEROL due on 07/27/2022 DIABETES SCREEN due on 11/02/2024 COLORECTAL CANCER SCREENING due on 06/01/2025 PROSTATE CANCER SCREENING DISCUSSION due on 01/20/2026 LIPID SCREEN due on 07/27/2026 DTAP,TDAP,TD(4 - Td or Tdap) due on 01/29/2028 SPIROMETRY Completed HEPATITIS C SCREENING Completed PNEUMOCOCCAL: 65+ Completed Data reviewed Component Latest Ref Rng & Units 11/02/2021 WBC 3.70 - 11.00 k/uL 4.00 RBC 4.20 - 6.00 m/uL 4.80 Hemoglobin 13.0 - 17.0 g/dL 12.9 (L) Hematocrit 39.0 - 51.0 % 39.9 MCV 80.0 - 100.0 fL 83.1 MCH 26.0 - 34.0 pg 26.9 MCHC 30.5 - 36.0 g/dL 32.3 RDW-CV 11.5 - 15.0 % 14.4 Platelet Count 150 - 400 k/uL 150 MPV 9.0 - 12.7 fL 9.5 Neut% % 74.9 Abs Neut (ANC) 1.45 - 7.50 k/uL 3.00 Lymph% % 13.5 Abs Lymph 1.00 - 4.00 k/uL 0.54 (L) [place]% % 8.0 Abs [place] <0.87 k/uL 0.32 Eosin% % 2.3 Abs Eosin <0.46 k/uL 0.09 Baso% % 0.8 Abs Baso <0.11 k/uL 0.03 Immature Gran % % 0.5 IMMATURE GRANS (ABS) <0.10 k/uL <0.03 NRBC /100 WBC 0.0 Absolute nRBC <0.01 k/uL <0.01 DTYPE Auto Protein, Total 6.3 - 8.0 g/dL 6.3 Albumin 3.9 - 4.9 g/dL 3.9 Calcium 8.5 - 10.2 mg/dL 8.8 Bilirubin, Total 0.2 - 1.3 mg/dL 0.5 Alkaline Phosphatase 38 - 113 U/L 105 AST 14 - 40 U/L 14 ALT 10 - 54 U/L 15 Glucose 74 - 99 mg/dL 98 BUN 9 - 24 mg/dL 13 Creatinine 0.73 - 1.22 mg/dL 1.08 Sodium 136 - 144 mmol/L 139 Potassium 3.7 - 5.1 mmol/L 4.0 Chloride 97 - 105 mmol/L 106 (H) CO2 22 - 30 mmol/L 23 Anion Gap 9 - 18 mmol/L 10 eGFR >=60 mL/min/1.73m 75 TSH 0.270 - 4.200 mIU/L 2.190 A/P ASSESSMENT/PLAN: 1. Medicare annual wellness visit, subsequent - ICD9: V70.0, ICD10: Z00.00 (primary diagnosis) - Counseled on healthy diet and regular exercise - Patient was counseled [id number] by myself (the billing provider) for the following immunizations and vaccine components, including side effects: Influenza. Patient consents for immunization and understands risks and benefits. A VIS sheet on each immunization was given to the patient. - Follow up for annual exam in one year 2. Essential hypertension, benign - ICD9: 401.1, ICD10: I10 - good control - Continue current medication(s) - Recommended regular aerobic exercise. - Recommend home blood pressure monitoring, to bring results in on next visit - Goal of BP <130/80 Check - COMP METABOLIC PANEL - URINALYSIS, WITH MICROSCOPIC - LIPID PANEL, NONFASTING 3. Mixed hyperlipidemia - ICD9: 272.2, ICD10: E78.2 - to be determined upon return of lab results - Encouraged following a low fat, low cholesterol diet. - Discussed the benefits of regular aerobic exercise and weight loss. - Encouraged following a low carbohydrate, healthy oil intake diet. - Continue current therapy. Check - COMP METABOLIC PANEL - URINALYSIS, WITH MICROSCOPIC - LIPID PANEL, NONFASTING 4. Gastroesophageal reflux disease, unspecified whether esophagitis present - ICD9: 530.81, ICD10: K21.9 - Continue treatment with Protonix 40 mg BID Check - MAGNESIUM BLD - VITAMIN B12 BLOOD 5. Iron deficiency anemia due to chronic blood loss - ICD9: 280.0, ICD10: D50.0 Check - CBC + DIFF - IRON + TIBC 6. Coronary artery disease involving [place] coronary artery of [place] heart without angina pectoris- ICD9: 414.01, ICD10: I25.10 - clinically stable no changes and cont f/u with cardio - LIPID PANEL, NONFASTING 7. Aortic valve stenosis, etiology of cardiac valve disease unspecified - ICD9: 424.1, ICD10: I35.0 - as per #6 8. Uncomplicated asthma, unspecified asthma severity, unspecified whether persistent - ICD9: 493.90, ICD10: J45.909 Mild intermittent Asthma stable - Avoidance of triggers recommended 9. Situational depression - ICD9: 309.0, ICD10: F43.21 - clinically doing well. No need for Tx. 10. Esophageal adenocarcinoma (HCC) - ICD9: 150.9, ICD10: C15.9 - management per oncology 11. Malignant 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) - ICD9: 150.5, ICD10: C15.5 - as per #10 12. Pleural effusion - ICD9: 511.9, ICD10: J90 - has been stable in f/u 13. Balanitis - ICD9: 607.1, ICD10: N48.1 New - will place on Duricef 500 mg twice a day for 7 days and advised on use of an OTC antifungal cream 14. Advance directive discussed with patient - ICD9: V65.49, ICD10: Z71.89 - packets provided. 15. Medication management - ICD9: V58.69, ICD10: Z79.899 Check - MAGNESIUM BLD - VITAMIN B12 BLOOD 16. Prostate disorder - ICD9: 602.9, ICD10: N42.9 Check - PSA/PROSTSPECAG DIAG 17. Decreased sexual desire - ICD9: 799.81, ICD10: F52.0 New - patient to check with oncology to see if any issues taking testosterone replacement if found to be low and let me know so test can be ordered. 18. Encounter for immunization - ICD9: V03.89, ICD10: Z23 - INFLUENZA SEASONAL QUADRIVALENT HIGH DOSE AGE 65+: given Requested Prescriptions Signed Prescriptions Disp Refills cefADROxil (DURICEF) 500 mg capsule 14 capsule 0 Sig: Take 1 capsule by mouth twice daily for 7 days. F/u 6 months routine I spent a total of 40 minutes on the date of the service which included preparing to see the patient, [id number] patient care, completing clinical documentation, performing a medically appropriate examination, counseling and educating the patient/family/caregiver and ordering medications, tests, or procedures. Yaw Singh MD documented in this encounterCommunity [facility]22 History of Present illness Narrative* Mari Solorzanoenter, RAILROAD CONDUCTOR.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 - 12/01/2021 9:56 AM EDT Chief Complaint Patient presents with: Established Patient: SCP HPI: Jacob Landa is a 66 year old male who presents here today for SCP/esophageal cancer. Per Dr. Jenkins's previous note: H/o coronary artery disease (CABG x4 vessels 2002; 2 stents at [facility] /2018; 3 stents [facility] 2014), HTN, hyperlipidemia, aortic valve stenosis (s/p TAVR bioprosthetic valve 02/2019), asthma, GERD, colon polyps, degenerative disc disease of the lumbar spine, BPH and history of kidney stones. Patient began having dysphagia and odynophagia several months prior to evaluation. He started on Protonix and had mild improvement in symptoms. EGD 04/15/2020: The examined jejunum was normal. The in the duodenum was normal. Scattered mild inflammation was found in the entire examined stomach. Biopsies were taken with a cold forceps for histology. Mildly severe esophagitis with no bleeding was found. Biopsies were taken with a cold forceps for histology. A large, fungating mass with bleeding and no stigmata of recent bleeding was found in the middle third of the esophagus, 32 to 38 cm from the incisors. The mass was partially obstructing and circumferential. Biopsies were taken with a cold forceps for histology. Pathology: FINAL DIAGNOSIS 1. Stomach, antrum, biopsy (A) - Gastric antral mucosa with no significant diagnostic alteration. - No morphological evidence of Helicobacter pylori organisms. 2. Esophagus, tumor at 32-38 cm, biopsy (B) - Adenocarcinoma, moderately differentiated. - See comment. 3. Esophagogastric junction, at 40 cm, biopsy (C) - Inflamed gastric cardia-type mucosa. - No evidence of intestinal metaplasia or dysplasia. COMMENT 2. The biopsy reveals moderately differentiated adenocarcinoma with at least lamina propria involvement (pT1a at least). There are focal features suspicious for submucosal invasion. CT Chest 04/15/2020: Lines, tubes, and devices: None. Lung parenchyma and airways: Trachea and central bronchi are patent with no endobronchial lesion. No focal consolidation. Few scattered cysts in the lower lobes. Scattered calcified granulomata consistent with remote granulomatous disease. Minimal subsegmental atelectasis dependent portions of the lower lobes. 2 mm nodule posterior right upper lobe (image 52) which may be calcified. 2 mm nodule abutting the left major fissure (image 75) which may represent a perifissural node. Otherwise, no suspicious pulmonary nodule. Pleural space: No pleural effusion. No pleural thickening. Lower neck, lymph nodes, and mediastinum: Moderate size hiatal hernia with suspected wall thickening above the hiatal hernia in the distal esophagus perhaps at the site of known neoplasm. Remainder of the esophagus is collapsed. Imaged thyroid gland is within normal limits. Calcified subcarinal and right hilar nodes consistent with remote granulomatous disease. No supraclavicular, axillary or hilar lymphadenopathy. Few nonspecific (short axis diameter <10 mm) mediastinal nodes are present, none enlarged by size criteria. Heart, pericardium, and thoracic vessels: Sternotomy for CABG and aortic valve replacement. Thoracic aorta is normal in caliber with mild atherosclerotic calcifications. Main pulmonary arteries normal caliber. Cardiac chambers are normal in size. No pericardial effusion or thickening. Bones and soft tissues: No suspicious osseous lesion. Mild endplate degenerative changes of the thoracic spine. Chest wall soft tissues are grossly within normal limits. Upper abdomen: Dedicated CT abdomen pelvis dictated separately. Rheostat Assembler (topogram) images: No additional findings. CT A/P 04/15/2020: Liver: No mass. Biliary: No bile duct dilation. Gallbladder is unremarkable. Spleen: No mass. No splenomegaly. Pancreas: No mass or duct dilation. Adrenals: 1 cm fatty density RIGHT adrenal gland consistent with a myelolipoma. Left adrenal gland is unremarkable. Kidneys: 2.5 cm medial LEFT renal density and 1 cm lower pole RIGHT renal density consistent with a cyst. GI tract: No dilation or wall thickening. Appendix appears normal. There is colonic diverticulosis. Lymph nodes: No abdominal or pelvic lymphadenopathy. Mesentery/Peritoneum: No ascites or mass. Retroperitoneum: No mass. Vasculature: The celiac axis and SMA are patent. The portal vein and branches, splenic vein, SMV, and hepatic veins are patent. Arterial atherosclerotic disease without aneurysm. Pelvis: No mass, ascites or fluid collection. Bones/Soft Tissues: Status post post RIGHT inguinal herniorrhaphy with mesh. Lower thorax: A chest CT performed will be reported separately. Rheostat Assembler (topogram) images: No additional findings. EGD/EUS 04/26/2020: A partially obstructing, malignant esophageal tumor was found to lower 30 esophagus. Gastric tumor in the cardia extension from distal esophageal tumor. Masses none lower third of the esophagus. -EUS staging T3 N1. At initial consultation visit here: He developed dysphagia and odynophagia several months ago. It was also associated with a lot of hiccuping. Currently he is able to swallow most foods except for meats. He has been able to get down some cooked vegetables and potatoes as long as pieces are very small and he chews well. Only he will have some regurgitation of clear fluid. No nausea per se. No longer having symptoms of reflux. His functional capacity is very good. He endorses dyspnea with heavy exertion but that has been stable. He does not have any symptoms of exertional chest pain or pressure. Mild lower extremity swelling that he attributes to previous vein harvesting. He is a lifelong non-smoker. He does not drink alcohol. Used to drink only very rarely. At CT scans on 07/14/2020 which showed no evidence of metastatic disease. Mild decrease in thickeningof the distal esophagus was noted. Previous therapy: 1) Concurrent chemotherapy/radiation with carboplatin and paclitaxel. 05/24 through 06/23/2020. Underwent [place] [facility] esophagectomy on 08/09/2020. Pathology: 1. Esophagus and stomach, distal thoracic esophagus and proximal stomach, esophagectomy (A): - Residual adenocarcinoma, status-post chemoradiation treatment, focally invading the adventitia. - Surgical resection margins negative for carcinoma. - Twenty-four lymph nodes, negative for carcinoma (0/24). - See synoptic report. 2. Soft tissue, pre-peritoneal fat pad, excision (B): - Fibroadipose connective tissue. 3. Lymph node, level VIII, excision (C): - One lymph node, negative for carcinoma (0/1). 4. Lymph node, level VII, excision (D): - One lymph node, negative for carcinoma (0/1). 5. Lymph nodes, left gastric lymph node packet, excision (E): - Two lymph nodes, negative for carcinoma (0/2). 6. Lymph node, ni-esophageal, excision (F): - One lymph node, negative for carcinoma (0/1). 7. Stomach, additional resection (G): - Gastric antral mucosa, negative for carcinoma. 8. Esophagus, final margin, resection (H): - Squamous mucosa and intestinal metaplasia, negative for carcinoma. Current therapy: 1) Adjuvant nivolumab. Patient had CT scans March 09/2021. Following that he was observed to have a mild increase in serum creatinine 1.3 mg/dL. He was hospitalized on 03/25 for increasing shortness of breath. At that time creatinine was 2.5 mg/dL. Decreased to 1.8 mg/dL with hydration overnight. Repeat creatinine on 03/30 was 1.3 and then again 1.3 mg/dL on 04/11 and then 1.02 mg/dL on 05/05. The LEELA was attributed to immunotherapy but timing suggest may have also been due to IV contrast administration for CT scans on 03/09. Previously had an echocardiogram on 01/07/2021. Normal left ventricular function with EF estimated 55 to 60%. Right ventricle was noted to be normal with normal systolic function. Grade 1 diastolic dysfunction was observed. There was a normal-appearing bioprosthetic AV functioning valve with trivialAI. No new concerns today. Appetite:"Good." Energy level:"Good." Denies fevers or recent illness. Resp:denies cough or sob Cardiac:denies chest pain/palpitations GI:denies abd pain, n/v, moving bowels regularly :denies dysuria/hematuria Extrem:denies pain Neuro:denies symptoms of neuropathy Skin:denies rashes/lesions Heme:denies bleeding The ROS is otherwise negative. Past medical history, appointments, medications, allergies reviewed. No changes. EXAM: BP 126/90 Pulse 72 Temp 37.1 C (98.8 F) Wt 83.9 kg (185 lb) BMI 26.54 kg/m APPEARANCE Well appearing, alert, in no acute distress, well-hydrated, well nourished. HEART RRR with normal S1 and S2, no murmurs LUNG clear to auscultation LYMPH NODES No cervical lymphadenopathy, No supraclavicular lymphadenopathy, and No axillary lymphadenopathy. ABDOMEN bowel sounds normoactive, soft, non-tender, non-distended, without organomegaly or palpablemasses, no tenderness to palpation EXTREMITIES No edema NEURO Awake, alert and oriented x 3, Normal gait, and No involuntary motions. SKIN Skin color, texture, turgor normal, no suspicious rashes or lesions ASSESSMENT/PLAN: 1. 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 Per Dr. 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 -Tolerated therapy well overall, but was able to only get 4 doses preoperative chemotherapy secondary to cytopenias. -ypT3 N0 (0 of 29 LNs). -Most recent EGD was 02/2021. No lesions were observed in the esophagus. The anastomosis at 25 cm was widely patent and well-healed. No dilation was required. No gross lesions were identified in the rest of the examined GI tract down to the second portion of the duodenum. -He tolerated immunotherapy very well and has now completed a year's worth of therapy. Plan: -SCP. -Labs, CT scans then OV in about 4 months. 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 - No concerning findings on exam. - Reviewed recent labs/CT's with pt. - Reviewed SCP with pt. Copies given. - Discussed follow up plan. - Follow up as scheduled. - Pt. aware to call office with any questions/concerns. The patient indicates understanding of these issues and agrees with the plan. All documentation from previous visit of 11/02/21-Dr. Jenkins was copied and pasted, documentation hasbeen reviewed and edited as necessary for today's visit. Mari Akhtar APRN.MOHINI documented in this encounterCommunity [facility] Center08-10-2022 Miscellaneous Notes* Telephone Encounter - Erin Du LPN - 11/16/2021 3:42 PM EDT Reglan wad D/C in June. Was given symptomatically. He does not need to fill. Pt notified. Erin Du LPN * Telephone Encounter - Sue Washington - 11/16/2021 2:39 PM EDT Pt called. concerned about medication called metoclopramide 10 mg. He found an empty bottle but assumes he does not need to be on that anymore. Wanted to confirm. documented in this encounterCommunity [facility] Center08-03-2022 History of Present illness Narrative* Queta Gleason APRN.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 - 11/09/2021 1:03 PM EDT Part of this note was copied from previous note, all content has been individually reviewed, updated as necessary, and thoroughly reviewed. [facility] - OUTPATIENT THORACIC SURGERY CLINIC NOTE PT NAME: Jacob [facility] NO: [id number] THORACIC SURGEON: Renetta Radford M.D. DATE OF SERVICE: 11/09/2021 PRINCIPAL DX: [id number] adenocarcinoma distal esophagus SURGICAL HX: 08/09/2020: [facility] Roger esophagectomy, Pyloromyotomy, Jejunostomy tube placement Surgical Pathology: FINAL DIAGNOSIS 1. Esophagus and stomach, distal thoracic esophagus and proximal stomach, esophagectomy (A): - Residual adenocarcinoma, status-post chemoradiation treatment, focally invading the adventitia. - Surgical resection margins negative for carcinoma. - Twenty-four lymph nodes, negative for carcinoma (0/24). - See synoptic report. 2. Soft tissue, pre-peritoneal fat pad, excision (B): - Fibroadipose connective tissue. 3. Lymph node, level VIII, excision (C): - One lymph node, negative for carcinoma (0/1). 4. Lymph node, level VII, excision (D): - One lymph node, negative for carcinoma (0/1). 5. Lymph nodes, left gastric lymph node packet, excision (E): - Two lymph nodes, negative for carcinoma (0/2). 6. Lymph node, ni-esophageal, excision (F): - One lymph node, negative for carcinoma (0/1). 7. Stomach, additional resection (G): - Gastric antral mucosa, negative for carcinoma. 8. Esophagus, final margin, resection (H): - Squamous mucosa and intestinal metaplasia, negative for carcinoma. [facility] [place] 08/13/2020 SYNOPTIC REPORT OF BERRY PATHOLOGIC FINDINGS DISTAL THORACIC ESOPHAGUS, PROXIMAL STOMACH: ESOPHAGUS:ENDOSCOPIC RESECTION, ESOPHAGECTOMY, OR ESOPHAGOGASTRECTOMY WORKSHEET Procedure: Esophagogastrectomy Tumor Site: Distal esophagus (lower thoracic esophagus) Relationship of Tumor to Esophagogastric Junction: Tumor midpoint lies in the distal esophagus and tumor involves the esophagogastric junction Tumor Size: Greatest dimension: 4.5 cm Additional dimension: 3 cm Additional dimension: 1.1 cm Histologic Type: Adenocarcinoma Histologic Grade: G2: Moderately differentiated Tumor Extension: Tumor invades adventitia Margins: All margins uninvolved by invasive carcinoma, dysplasia, and intestinal metaplasia Margins examined: Proximal mucosal, distal mucosal, soft tissue/adventitial Distance of invasive carcinoma from closest margin: 0.5 cm Specify closest margin: Soft tissue/adventitial Proximal Margin: Proximal margin uninvolved by invasive carcinoma Distal Margin: Distal margin uninvolved by invasive carcinoma Radial Margin: Radial margin uninvolved by invasive carcinoma Treatment Effect: Present, single cells or rare small groups of cancer cells (near complete response, score 1) Lymphovascular Invasion: Not identified Perineural Invasion: Not identified Regional Lymph Nodes: Number of regional lymph nodes involved: 0 Number of regional lymph nodes examined: 29 Pathologic Stage Classification (pTNM,AJCC 8th ed) TNM Descriptors: y (posttreatment) Primary Tumor (pT): pT3: Tumor invades adventitia Regional Lymph Nodes (pN): pN0: No regional lymph node metastasis Distant Metastasis (pM): Not applicable/Not confirmed pathologically in this case REASON FOR VISIT: Follow up after EGD HPI: Jacob Landa is a 66 year old male with a past medical history significant for coronary artery disease (CABG x4 vessels 2002; stents in 2014 and 2018), HTN, hyperlipidemia, aortic valve stenosis (s/p TAVR 02/2019), asthma, GERD, degenerative disc disease of the lumbar spine, and BPH who initially presented with dysphagia. EGD/EUS and PET scan confirmed T3N1 distal esophageal adenocarcinoma. He underwent concurrent chemotherapy/radiation completed on 06/23/2020 and now presents for surgical resection as the final stage in trimodal therapy. PHYSICAL EXAM: VITAL SIGNS: BP 135/82 Pulse 60 Temp 36.5 C (97.7 F) Resp 16 Ht 177.8 cm (5' 10") Wt 83.5kg (184 lb) SpO2 99% BMI 26.40 kg/m GENERAL no acute distress alert and oriented x3 HEENT normocephalic, head midline, oral mucous membranes moist ABDOMEN soft nontender, nondistended EXTREMITIES no clubbing, cyanosis or edema MUSCULOSKELETAL Gait within normal limits SKIN no rashes or petechiae TEST/RESULTS: EGD 11/09/2021 - Dr Francesca Vazquez Impression: - Normal oropharynx. - No gross lesions in esophagus. - No gross lesions in the stomach. - No gross lesions in the duodenal bulb, in the first portion of the duodenum and in the second portion of the duodenum. - No specimens collected. INTERVAL HISTORY: Jacob Landa returns to clinic following an EGD with Dr Vazquez. Pt denies fever, chills, diahhrea, and vomiting. He is tolerating diet, and moving bowels regularly. He reports he will have some reflux if he slides down at night and is flat rather then elevated. EGD showed no ulcer identified. It has completely resolved since last scope. Continue BID PPI and PRN TUMS. Return in 8 months with an EGD. Patients states understanding and all questions were answered to satisfaction; will call if new or worsening symptoms occur or if any additional questions arise. IMPRESSION: 66 year old year old male s/p [place] esophagectomy, Pyloromyotomy, Jejunostomy tubeplacement with Dr Renetta Radford on 08/09/2020. Pathology showed ypT3N0 adenocarcinoma distal esophagus. JARAD. PLAN: - Protonix BID - TUMS prior to bedtime if needed - Return for EGD in 8 months - Oncology follow up, Dr. Jenkins - Radiation/Oncology, Dr.Lee Queta Gleason APRN.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 documented in this encounterCommunity [facility]08-[facility]-2022 Nurse Note* Flory Grant RN - 11/09/2021 12:10 PM EDT AMBULATORY PATIENT EDUCATION NOTE TOPIC: GI PROCEDURES: Esophagogastroduodenoscopy(EGD) for control of bleeding,dilation(any means),imaging,tube placement Esophagogastroduodenoscopy(EGD) with or without biopies based on clinical findings, removal of polyps or lesions READINESS TO LEARN INSTRUCTION PROVIDED TO: Patient, readness to learn accessed prior to procedure and Family member COGNITIVE ABILITY: Alert and oriented PTED MOTIVATION TO LEARN: Eager Interested FAMILY SUPPORT: High - Very involved in pt care IPATIENT LEARNS BEST BY: Individual Instruction Written Instruction - Hand-outs Verbal Instruction FACTORS AFFECTING LEARNING: None PHYSICAL LIMITATIONS AFFECTING LEARNING: None LEARNING RESPONSE METHOD OF INSTRUCTION: Individual instruction PATIENT / FAMILY RESPONSE: Verbalizes understanding of: WORSENING CONDITION- Signs and symptoms of aworsening condition that warrant a call to the physician FOLLOW-UP PLAN: Patient instructed to call with any further issues Recommend - Recommend continued instruction and follow up as directed Contact information given. SUPPLEMENTAL MATERIAL: Procedure Discharge Instructions REFERRAL (RECOMMENDATION): None * Nuria Blandon RN - 11/09/2021 11:37 AM EDT PRE OP LEARNING ASSESSMENT PROCEDURE/SURGERY: GI PROCEDURES: EGD READINESS TO LEARN COGNITIVE ABILITY: Alert and oriented MOTIVATION TO LEARN: Interested FAMILY SUPPORT: High - Very involved in pt care PATIENT LEARNS BEST BY: Individual Instruction FACTORS AFFECTING LEARNING: None PHYSICAL LIMITATIONS AFFECTING LEARNING: None Electronically Signed By: Nuria Blandon RN In Department: GASTROENTEROLOGY documented in this encounterCommunity [facility] Center07-27-2022 Miscellaneous Notes* Telephone Encounter - Carrie Wang RN - 11/02/2021 1:04 PM EDT Attempted to reach the patient at the contact number that they provided [phone] (home) [phone] (work) . Unable to speak with patient so without identifying the patient the following information was left on their voice mail: Date of procedure, location and report time A message was left informing the patient/patient premium representative they must have a responsible adult accompany them to their procedure; and remain in the endoscopy area until they are discharged. Failure to have a responsible adult accompany the patient to their procedure appointment prevents the useof sedation or anesthesia for their procedure; and can result in cancellation of the procedure NPO instructions were reviewed. Instructions to contact their primary care provider regarding their medications and which medications to stop in preparation for their procedure Instructions to completely read and follow the written instructions that they recieved regarding their procedure. Number to call with questions or concerns [phone] Number to call to cancel their procedure [phone] Carrie Wang RN documented in this encounterCommunity [facility] Center07-27-2022 History of Present illness Narrative* Richard Jenkins, - 11/02/2021 10:28 AM EDT Oncologic problem(s): 1) Adenocarcinoma the GE junction. HPI: The patient is a 66-year-old male with a past medical history significant for coronary artery disease (CABG x4 vessels 2002; 2 stents at [facility] /2018; 3 stents [facility] 2014), HTN, hyperlipidemia, aortic valve stenosis (s/p TAVR bioprosthetic valve 02/2019), asthma, GERD, colon polyps, degenerative disc disease of the lumbar spine, BPH and history of kidney stones. Patient began having dysphagia and odynophagia several months prior to evaluation. He started on Protonix and had mild improvement in symptoms. EGD 04/15/2020: The examined jejunum was normal. The in the duodenum was normal. Scattered mild inflammation was found in the entire examined stomach. Biopsies were taken with a cold forceps for histology. Mildly severe esophagitis with no bleeding was found. Biopsies were taken with a cold forceps for histology. A large, fungating mass with bleeding and no stigmata of recent bleeding was found in the middle third of the esophagus, 32 to 38 cm from the incisors. The mass was partially obstructing and circumferential. Biopsies were taken with a cold forceps for histology. Pathology: FINAL DIAGNOSIS 1. Stomach, antrum, biopsy (A) - Gastric antral mucosa with no significant diagnostic alteration. - No morphological evidence of Helicobacter pylori organisms. 2. Esophagus, tumor at 32-38 cm, biopsy (B) - Adenocarcinoma, moderately differentiated. - See comment. 3. Esophagogastric junction, at 40 cm, biopsy (C) - Inflamed gastric cardia-type mucosa. - No evidence of intestinal metaplasia or dysplasia. COMMENT 2. The biopsy reveals moderately differentiated adenocarcinoma with at least lamina propria involvement (pT1a at least). There are focal features suspicious for submucosal invasion. CT Chest 04/15/2020: Lines, tubes, and devices: None. Lung parenchyma and airways: Trachea and central bronchi are patent with no endobronchial lesion. No focal consolidation. Few scattered cysts in the lower lobes. Scattered calcified granulomata consistent with remote granulomatous disease. Minimal subsegmental atelectasis dependent portions of the lower lobes. 2 mm nodule posterior right upper lobe (image 52) which may be calcified. 2 mm nodule abutting the left major fissure (image 75) which may represent a perifissural node. Otherwise, no suspicious pulmonary nodule. Pleural space: No pleural effusion. No pleural thickening. Lower neck, lymph nodes, and mediastinum: Moderate size hiatal hernia with suspected wall thickening above the hiatal hernia in the distal esophagus perhaps at the site of known neoplasm. Remainder of the esophagus is collapsed. Imaged thyroid gland is within normal limits. Calcified subcarinal and right hilar nodes consistent with remote granulomatous disease. No supraclavicular, axillary or hilar lymphadenopathy. Few nonspecific (short axis diameter <10 mm) mediastinal nodes are present, none enlarged by size criteria. Heart, pericardium, and thoracic vessels: Sternotomy for CABG and aortic valve replacement. Thoracic aorta is normal in caliber with mild atherosclerotic calcifications. Main pulmonary arteries normal caliber. Cardiac chambers are normal in size. No pericardial effusion or thickening. Bones and soft tissues: No suspicious osseous lesion. Mild endplate degenerative changes of the thoracic spine. Chest wall soft tissues are grossly within normal limits. Upper abdomen: Dedicated CT abdomen pelvis dictated separately. Rheostat Assembler (topogram) images: No additional findings. CT A/P 04/15/2020: Liver: No mass. Biliary: No bile duct dilation. Gallbladder is unremarkable. Spleen: No mass. No splenomegaly. Pancreas: No mass or duct dilation. Adrenals: 1 cm fatty density RIGHT adrenal gland consistent with a myelolipoma. Left adrenal gland is unremarkable. Kidneys: 2.5 cm medial LEFT renal density and 1 cm lower pole RIGHT renal density consistent with a cyst. GI tract: No dilation or wall thickening. Appendix appears normal. There is colonic diverticulosis. Lymph nodes: No abdominal or pelvic lymphadenopathy. Mesentery/Peritoneum: No ascites or mass. Retroperitoneum: No mass. Vasculature: The celiac axis and SMA are patent. The portal vein and branches, splenic vein, SMV, and hepatic veins are patent. Arterial atherosclerotic disease without aneurysm. Pelvis: No mass, ascites or fluid collection. Bones/Soft Tissues: Status post post RIGHT inguinal herniorrhaphy with mesh. Lower thorax: A chest CT performed will be reported separately. Rheostat Assembler (topogram) images: No additional findings. EGD/EUS 04/26/2020: A partially obstructing, malignant esophageal tumor was found to lower 30 esophagus. Gastric tumor in the cardia extension from distal esophageal tumor. Masses none lower third of the esophagus. -EUS staging T3 N1. At initial consultation visit here: He developed dysphagia and odynophagia several months ago. It was also associated with a lot of hiccuping. Currently he is able to swallow most foods except for meats. He has been able to get down some cooked vegetables and potatoes as long as pieces are very small and he chews well. Only he will have some regurgitation of clear fluid. No nausea per se. No longer having symptoms of reflux. His functional capacity is very good. He endorses dyspnea with heavy exertion but that has been stable. He does not have any symptoms of exertional chest pain or pressure. Mild lower extremity swelling that he attributes to previous vein harvesting. He is a lifelong non-smoker. He does not drink alcohol. Used to drink only very rarely. At CT scans on 07/14/2020 which showed no evidence of metastatic disease. Mild decrease in thickeningof the distal esophagus was noted. Previous therapy: 1) Concurrent chemotherapy/radiation with carboplatin and paclitaxel. 05/24 through 06/23/2020. Underwent [place] esophagectomy on 08/09/2020. Pathology: 1. Esophagus and stomach, distal thoracic esophagus and proximal stomach, esophagectomy (A): - Residual adenocarcinoma, status-post chemoradiation treatment, focally invading the adventitia. - Surgical resection margins negative for carcinoma. - Twenty-four lymph nodes, negative for carcinoma (0/24). - See synoptic report. 2. Soft tissue, pre-peritoneal fat pad, excision (B): - Fibroadipose connective tissue. 3. Lymph node, level VIII, excision (C): - One lymph node, negative for carcinoma (0/1). 4. Lymph node, level VII, excision (D): - One lymph node, negative for carcinoma (0/1). 5. Lymph nodes, left gastric lymph node packet, excision (E): - Two lymph nodes, negative for carcinoma (0/2). 6. Lymph node, ni-esophageal, excision (F): - One lymph node, negative for carcinoma (0/1). 7. Stomach, additional resection (G): - Gastric antral mucosa, negative for carcinoma. 8. Esophagus, final margin, resection (H): - Squamous mucosa and intestinal metaplasia, negative for carcinoma. Current therapy: 1) Adjuvant nivolumab. Patient had CT scans March 09/2021. Following that he was observed to have a mild increase in serum creatinine 1.3 mg/dL. He was hospitalized on 03/25 for increasing shortness of breath. At that time creatinine was 2.5 mg/dL. Decreased to 1.8 mg/dL with hydration overnight. Repeat creatinine on 03/30 was 1.3 and then again 1.3 mg/dL on 04/11 and then 1.02 mg/dL on 05/05. The LEELA was attributed to immunotherapy but timing suggest may have also been due to IV contrast administration for CT scans on 03/09. Previously had an echocardiogram on 01/07/2021. Normal left ventricular function with EF estimated 55 to 60%. Right ventricle was noted to be normal with normal systolic function. Grade 1 diastolic dysfunction was observed. There was a normal-appearing bioprosthetic AV functioning valve with trivialAI. Presents for ongoing oncologic management. Interim history: He has no complaints today. He said gradually, week by week he has been noticing improvements in appetite and strength all around. No dysphagia at this point. He is eating a wide variety of foods. 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 He has no cardiac symptoms. Stable dyspnea with exertion. No diarrhea. PMH, medications and allergies personally reviewed by me today. Any changes documented in appropriate section. ROS: Constitutional: Denies episodes of fever and night sweats. Neuro: Denies CHAIDEZ, vertigo, dizziness and imbalance. Denies symptoms of neuropathy. HEENT: No recent change in voice, vision or hearing. Resp: See above. CVS: See above. GI: See above. : Denies dysuria or gross hematuria. No symptoms of bladder outlet obstruction. Endo: Denies hot flashes. Denies polyuria and polydipsia. Denies heat and cold intolerance. Musculoskeletal: Denies bone, back, joint and muscular pain. Derm: Denies rash. Denies jaundice and diffuse pruritis. Heme: Denies unusual bleeding and unexplained bruising. Psych: Normal mood. PHYSICAL EXAM: Vitals: Blood pressure 130/86, pulse 71, temperature 36.8 C (98.3 F), weight 84.1 kg (185 lb 8 oz),SpO2 96 %. Well-appearing and in no acute distress. EYES: Sclerae are anicteric bilaterally. NECK: Supple. LYMPHATIC: There is no palpable cervical or supraclavicular adenopathy. RESPIRATORY: There is exam evidence of residual bilateral pleural effusion. CARDIOVASCULAR: Rhythm is regular. ABDOMEN: The abdomen is nondistended. Extremities: No swelling or edema. SKIN: No jaundice or rash. No petechiae. NEUROLOGIC: statistics teacher II-XII are grossly intact. No focal motor weakness. LABS: Component Latest Ref Rng & Units 11/02/2021 WBC 3.70 - 11.00 k/uL 4.00 RBC 4.20 - 6.00 m/uL 4.80 Hemoglobin 13.0 - 17.0 g/dL 12.9 (L) Hematocrit 39.0 - 51.0 % 39.9 MCV 80.0 - 100.0 fL 83.1 MCH 26.0 - 34.0 pg 26.9 MCHC 30.5 - 36.0 g/dL 32.3 RDW-CV 11.5 - 15.0 % 14.4 Platelet Count 150 - 400 k/uL 150 MPV 9.0 - 12.7 fL 9.5 Neut% % 74.9 Abs Neut (ANC) 1.45 - 7.50 k/uL 3.00 Lymph% % 13.5 Abs Lymph 1.00 - 4.00 k/uL 0.54 (L) [place]% % 8.0 Abs [place] <0.87 k/uL 0.32 Eosin% % 2.3 Abs Eosin <0.46 k/uL 0.09 Baso% % 0.8 Abs Baso <0.11 k/uL 0.03 Immature Gran % % 0.5 IMMATURE GRANS (ABS) <0.10 k/uL <0.03 NRBC /100 WBC 0.0 Absolute nRBC <0.01 k/uL <0.01 DTYPE Auto ASSESSMENT/PLAN: (C15.5) Malignant 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) (primary encounter diagnosis) Assessment: -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 -Tolerated therapy well overall, but was able to only get 4 doses preoperative chemotherapy secondary to cytopenias. -ypT3 N0 (0 of 29 LNs). -Most recent EGD was 02/2021. No lesions were observed in the esophagus. The anastomosis at 25 cm was widely patent and well-healed. No dilation was required. No gross lesions were identified in the rest of the examined GI tract down to the second portion of the duodenum. -He tolerated immunotherapy very well and has now completed a year's worth of therapy. Plan: -SCP. -Labs, CT scans then OV in about 4 months. 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 Portions of this documentation were copied and pasted from previous office visit notes in order to provide a cohesive continuity of the history. The note has been reviewed and edited and updated as necessary. During this patient visit I have spent approximately 10 minutes out of 20 in counseling regarding treatment options, medications and test results and coordinating care. Richard Jenkins DO documented in this encounterCommunity [facility] Center06-29-2022 History of Present illness Narrative* Richard Jenkins DO - 10/05/2021 9:49 AM EDT Oncologic problem(s): 1) Adenocarcinoma the GE junction. HPI: The patient is a 65-year-old male with a past medical history significant for coronary artery disease (CABG x4 vessels 2002; 2 stents at [facility] /2019; 3 stents [facility] 2014), HTN, hyperlipidemia, aortic valve stenosis (s/p TAVR bioprosthetic valve 02/2019), asthma, GERD, colon polyps, degenerative disc disease of the lumbar spine, BPH and history of kidney stones. Patient began having dysphagia and odynophagia several months prior to evaluation. He started on Protonix and had mild improvement in symptoms. EGD 04/15/2020: The examined jejunum was normal. The in the duodenum was normal. Scattered mild inflammation was found in the entire examined stomach. Biopsies were taken with a cold forceps for histology. Mildly severe esophagitis with no bleeding was found. Biopsies were taken with a cold forceps for histology. A large, fungating mass with bleeding and no stigmata of recent bleeding was found in the middle third of the esophagus, 32 to 38 cm from the incisors. The mass was partially obstructing and circumferential. Biopsies were taken with a cold forceps for histology. Pathology: FINAL DIAGNOSIS 1. Stomach, antrum, biopsy (A) - Gastric antral mucosa with no significant diagnostic alteration. - No morphological evidence of Helicobacter pylori organisms. 2. Esophagus, tumor at 32-38 cm, biopsy (B) - Adenocarcinoma, moderately differentiated. - See comment. 3. Esophagogastric junction, at 40 cm, biopsy (C) - Inflamed gastric cardia-type mucosa. - No evidence of intestinal metaplasia or dysplasia. COMMENT 2. The biopsy reveals moderately differentiated adenocarcinoma with at least lamina propria involvement (pT1a at least). There are focal features suspicious for submucosal invasion. CT Chest 04/15/2020: Lines, tubes, and devices: None. Lung parenchyma and airways: Trachea and central bronchi are patent with no endobronchial lesion. No focal consolidation. Few scattered cysts in the lower lobes. Scattered calcified granulomata consistent with remote granulomatous disease. Minimal subsegmental atelectasis dependent portions of the lower lobes. 2 mm nodule posterior right upper lobe (image 52) which may be calcified. 2 mm nodule abutting the left major fissure (image 75) which may represent a perifissural node. Otherwise, no suspicious pulmonary nodule. Pleural space: No pleural effusion. No pleural thickening. Lower neck, lymph nodes, and mediastinum: Moderate size hiatal hernia with suspected wall thickening above the hiatal hernia in the distal esophagus perhaps at the site of known neoplasm. Remainder of the esophagus is collapsed. Imaged thyroid gland is within normal limits. Calcified subcarinal and right hilar nodes consistent with remote granulomatous disease. No supraclavicular, axillary or hilar lymphadenopathy. Few nonspecific (short axis diameter <10 mm) mediastinal nodes are present, none enlarged by size criteria. Heart, pericardium, and thoracic vessels: Sternotomy for CABG and aortic valve replacement. Thoracic aorta is normal in caliber with mild atherosclerotic calcifications. Main pulmonary arteries normal caliber. Cardiac chambers are normal in size. No pericardial effusion or thickening. Bones and soft tissues: No suspicious osseous lesion. Mild endplate degenerative changes of the thoracic spine. Chest wall soft tissues are grossly within normal limits. Upper abdomen: Dedicated CT abdomen pelvis dictated separately. Rheostat Assembler (topogram) images: No additional findings. CT A/P 04/15/2020: Liver: No mass. Biliary: No bile duct dilation. Gallbladder is unremarkable. Spleen: No mass. No splenomegaly. Pancreas: No mass or duct dilation. Adrenals: 1 cm fatty density RIGHT adrenal gland consistent with a myelolipoma. Left adrenal gland is unremarkable. Kidneys: 2.5 cm medial LEFT renal density and 1 cm lower pole RIGHT renal density consistent with a cyst. GI tract: No dilation or wall thickening. Appendix appears normal. There is colonic diverticulosis. Lymph nodes: No abdominal or pelvic lymphadenopathy. Mesentery/Peritoneum: No ascites or mass. Retroperitoneum: No mass. Vasculature: The celiac axis and SMA are patent. The portal vein and branches, splenic vein, SMV, and hepatic veins are patent. Arterial atherosclerotic disease without aneurysm. Pelvis: No mass, ascites or fluid collection. Bones/Soft Tissues: Status post post RIGHT inguinal herniorrhaphy with mesh. Lower thorax: A chest CT performed will be reported separately. Rheostat Assembler (topogram) images: No additional findings. EGD/EUS 04/26/2020: A partially obstructing, malignant esophageal tumor was found to lower 30 esophagus. Gastric tumor in the cardia extension from distal esophageal tumor. Masses none lower third of the esophagus. -EUS staging T3 N1. At initial consultation visit here: He developed dysphagia and odynophagia several months ago. It was also associated with a lot of hiccuping. Currently he is able to swallow most foods except for meats. He has been able to get down some cooked vegetables and potatoes as long as pieces are very small and he chews well. Only he will have some regurgitation of clear fluid. No nausea per se. No longer having symptoms of reflux. His functional capacity is very good. He endorses dyspnea with heavy exertion but that has been stable. He does not have any symptoms of exertional chest pain or pressure. Mild lower extremity swelling that he attributes to previous vein harvesting. He is a lifelong non-smoker. He does not drink alcohol. Used to drink only very rarely. At CT scans on 07/14/2020 which showed no evidence of metastatic disease. Mild decrease in thickeningof the distal esophagus was noted. Previous therapy: 1) Concurrent chemotherapy/radiation with carboplatin and paclitaxel. 05/24 through 06/23/2020. Underwent [place] esophagectomy on 08/09/2020. Pathology: 1. Esophagus and stomach, distal thoracic esophagus and proximal stomach, esophagectomy (A): - Residual adenocarcinoma, status-post chemoradiation treatment, focally invading the adventitia. - Surgical resection margins negative for carcinoma. - Twenty-four lymph nodes, negative for carcinoma (0/24). - See synoptic report. 2. Soft tissue, pre-peritoneal fat pad, excision (B): - Fibroadipose connective tissue. 3. Lymph node, level VIII, excision (C): - One lymph node, negative for carcinoma (0/1). 4. Lymph node, level VII, excision (D): - One lymph node, negative for carcinoma (0/1). 5. Lymph nodes, left gastric lymph node packet, excision (E): - Two lymph nodes, negative for carcinoma (0/2). 6. Lymph node, ni-esophageal, excision (F): - One lymph node, negative for carcinoma (0/1). 7. Stomach, additional resection (G): - Gastric antral mucosa, negative for carcinoma. 8. Esophagus, final margin, resection (H): - Squamous mucosa and intestinal metaplasia, negative for carcinoma. Current therapy: 1) Adjuvant nivolumab. Patient had CT scans March 09/2021. Following that he was observed to have a mild increase in serum creatinine 1.3 mg/dL. He was hospitalized on 03/25 for increasing shortness of breath. At that time creatinine was 2.5 mg/dL. Decreased to 1.8 mg/dL with hydration overnight. Repeat creatinine on 03/30 was 1.3 and then again 1.3 mg/dL on 04/11 and then 1.02 mg/dL on 05/05. The LEELA was attributed to immunotherapy but timing suggest may have also been due to IV contrast administration for CT scans on 03/09. Previously had an echocardiogram on 01/07/2021. Normal left ventricular function with EF estimated 55 to 60%. Right ventricle was noted to be normal with normal systolic function. Grade 1 diastolic dysfunction was observed. There was a normal-appearing bioprosthetic AV functioning valve with trivialAI. Presents for ongoing oncologic management. Interim history: Appetite doing better. "I'm eating seconds." Food has more appeal. No nausea or reflux. Bowels regular. No diarrhea. Improved TRIPATHI. 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 No chest pain or pressure. Not having any symptomatic side effect from immunotherapy subjectively. PMH, medications and allergies personally reviewed by me today. Any changes documented in appropriate section. ROS: Constitutional: Denies episodes of fever and night sweats. Neuro: Denies CHAIDEZ, vertigo, dizziness and imbalance. Denies symptoms of neuropathy. HEENT: No recent change in voice, vision or hearing. Resp: See above. CVS: See above. GI: See above. : Denies dysuria or gross hematuria. No symptoms of bladder outlet obstruction. Endo: Denies hot flashes. Denies polyuria and polydipsia. Denies heat and cold intolerance. Musculoskeletal: Denies bone, back, joint and muscular pain. Derm: Denies rash. Denies jaundice and diffuse pruritis. Heme: Denies unusual bleeding and unexplained bruising. Psych: Normal mood. PHYSICAL EXAM: Vitals: Blood pressure 132/68, pulse 66, temperature 36.7 C (98 F), temperature source Temporal, height 175.3 cm (5' 9"), weight 82.8 kg (182 lb 8 oz), SpO2 98 %. Well-appearing and in no acute distress. EYES: Sclerae are anicteric bilaterally. NECK: Supple. LYMPHATIC: There is no palpable cervical or supraclavicular adenopathy. RESPIRATORY: There is exam evidence of residual bilateral pleural effusion. CARDIOVASCULAR: Rhythm is regular. ABDOMEN: The abdomen is nondistended. Extremities: No swelling or edema. SKIN: No jaundice or rash. No petechiae. NEUROLOGIC: statistics teacher II-XII are grossly intact. No focal motor weakness. LABS: Component Latest Ref Rng & Units 10/03/2021 WBC 3.70 - 11.00 k/uL 5.05 RBC 4.20 - 6.00 m/uL 4.63 Hemoglobin 13.0 - 17.0 g/dL 12.7 (L) Hematocrit 39.0 - 51.0 % 38.9 (L) MCV 80.0 - 100.0 fL 84.0 MCH 26.0 - 34.0 pg 27.4 MCHC 30.5 - 36.0 g/dL 32.6 RDW-CV 11.5 - 15.0 % 14.6 Platelet Count 150 - 400 k/uL 151 MPV 9.0 - 12.7 fL 10.0 Neut% % 74.4 Abs Neut (ANC) 1.45 - 7.50 k/uL 3.76 Lymph% % 13.1 Abs Lymph 1.00 - 4.00 k/uL 0.66 (L) [place]% % 7.9 Abs [place] <0.87 k/uL 0.40 Eosin% % 3.2 Abs Eosin <0.46 k/uL 0.16 Baso% % 1.0 Abs Baso <0.11 k/uL 0.05 Immature Gran % % 0.4 IMMATURE GRANS (ABS) <0.10 k/uL <0.03 NRBC /100 WBC 0.0 Absolute nRBC <0.01 k/uL <0.01 DTYPE Auto Protein, Total 6.3 - 8.0 g/dL 6.0 (L) Albumin 3.9 - 4.9 g/dL 3.8 (L) Calcium 8.5 - 10.2 mg/dL 8.7 Bilirubin, Total 0.2 - 1.3 mg/dL 0.7 Alkaline Phosphatase 38 - 113 U/L 94 AST 14 - 40 U/L 16 ALT 10 - 54 U/L 16 Glucose 74 - 99 mg/dL 93 BUN 9 - 24 mg/dL 16 Creatinine 0.73 - 1.22 mg/dL 1.07 Sodium 136 - 144 mmol/L 141 Potassium 3.7 - 5.1 mmol/L 4.1 Chloride 97 - 105 mmol/L 107 (H) CO2 22 - 30 mmol/L 23 Anion Gap 9 - 18 mmol/L 11 eGFR >=60 mL/min/1.73m 76 TSH 0.270 - 4.200 mIU/L 2.390 Cortisol 4.8 - 19.5 ug/dL 9.2 Free T4 0.9 - 1.7 ng/dL 1.1 ASSESSMENT/PLAN: (C15.5) Malignant 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) (primary encounter diagnosis) Assessment: -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 -Tolerated therapy well overall, but was able to only get 4 doses preoperative chemotherapy secondary to cytopenias. -ypT3 N0 (0 of 29 LNs). -Most recent EGD was 02/2021. No lesions were observed in the esophagus. The anastomosis at 25 cm was widely patent and well-healed. No dilation was required. No gross lesions were identified in the rest of the examined GI tract down to the second portion of the duodenum. -He is tolerating immunotherapy very well. -Reviewed CTs. JARAD. Plan: -Okay for last two doses nivolumab. -Repeat CT scans in about 4 months. -Continue Lasix 20 mg daily. -OV labs in about 2 months. (J90) Pleural effusion (R06.00, R06.89) Dyspnea and respiratory abnormalities Assessment: -Prior to surgery, he had been on diuretic therapy. -CT scans suggest generalized fluid retention. -Renal function now normal. Plan: -Continue Lasix 20 mg daily along with potassium supplement. -He is scheduled for cardiology follow-up in September. Portions of this documentation were copied and pasted from previous office visit notes in order to provide a cohesive continuity of the history. The note has been reviewed and edited and updated as necessary. During this patient visit I have spent approximately 10 minutes out of 20 in counseling regarding treatment options, medications and test results and coordinating care. Richard Jenkins DO documented in this encounterCommunity [facility]06-27-[facility]22 History of Present illness Narrative* DINA Mcelroy - 10/03/2021 10:40 AM EDT Radiology Service Progress Note DATE OF SERVICE: October 03, 2021 TIME: 11:56 AM PATIENT IDENTITY VERIFICATION COMPLETED USING TWO (2) STANDARD IDENTIFIERS: Name and Date of confirmed by patient verbally and Name and Date of confirmed by identification band. FALL SCREENING: Has the patient had 2 falls in the last year or 1 fall with injury or currently using an Ambulatory Assistive Device (Walker, Cane, Wheelchair, Crutches, etc.)? No PATIENT GENDER DATA: Male PATIENT RELEVANT IMPLANT DATA REVIEWED: Not Applicable ALLERGIES: Reviewed and unchanged CONTRAST ALLERGY: NO. EXAM: CT -CONTRAST INDUCED NEPHROPATHY RISK FACTORS: Patient age > 60 years CREATININE: Creatinine Date Value Ref Range Status 10/03/2021 1.07 0.73 - 1.22 mg/dL Final 09/08/2021 1.03 0.73 - 1.22 mg/dL Final 08/24/2021 1.03 0.73 - 1.22 mg/dL Final Estimated Glomerular Filtration Rate Date Value Ref Range Status 10/03/2021 76 >=60 mL/min/1.73m Final Comment: Estimated Glomerular Filtration Rate (eGFR) is calculated using the 2020 CKD-EPI creatinine equation. This equation utilizes serum creatinine, sex, and age as parameters. The creatinine assay has traceable calibration to isotope dilution- mass spectrometry. Refer to KDIGO guidelines for clinical interpretation. In patients with unstable renal function, e.g. those with acute kidney injury, the eGFRmay not accurately reflect actual GFR. eGFR- Date Value Ref Range Status 06/02/2021 >60 Final P.O.C.T. RESULTS: N/A October 03, 2021 TREATMENT: N/A PERIPHERAL IV DATA: Ambulatory: A peripheral IV was started in the Left antecubital site with a Angio cath: 22 gauge. RADIOLOGY DEPARTMENT: CT; Exam(s) Completed: Chest Abdomen Pelvis SIGNATURE: DINA Mcelroy PATIENT NAME: Jacob Landa DATE: October 03, 2021 TIME: 11:56 AM documented in this encounterCommunity [facility] Center06-03-2022 Miscellaneous Notes* Telephone Encounter - Isa Valdez LPN - 09/09/2021 8:14 AM EDT Appt. Notes edited T4 added. Isa Valdez LPN * Telephone Encounter - Richard Jenkins DO - 09/09/2021 7:56 AM EDT Please add T4 to his lab work going forward. Richard Jenkins DO documented in this encounterCommunity [facility] Center06-01-2022 History of Present illness Narrative* Queta Gleason APRN.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 - 09/07/2021 2:22 PM EDT Part of this note was copied from previous note, all content has been individually reviewed, updated as necessary, and thoroughly reviewed. [facility] - OUTPATIENT THORACIC SURGERY CLINIC NOTE PT NAME: Jacob [place] [facility] NO: [id number] THORACIC SURGEON: Renetta Radford M.D. DATE OF SERVICE: 09/07/2021 PRINCIPAL DX: ypT3N0 adenocarcinoma distal esophagus SURGICAL HX: 08/09/2020: Adrián Roger esophagectomy, Pyloromyotomy, Jejunostomy tube placement Surgical Pathology: FINAL DIAGNOSIS 1. Esophagus and stomach, distal thoracic esophagus and proximal stomach, esophagectomy (A): - Residual adenocarcinoma, status-post chemoradiation treatment, focally invading the adventitia. - Surgical resection margins negative for carcinoma. - Twenty-four lymph nodes, negative for carcinoma (0/24). - See synoptic report. 2. Soft tissue, pre-peritoneal fat pad, excision (B): - Fibroadipose connective tissue. 3. Lymph node, level VIII, excision (C): - One lymph node, negative for carcinoma (0/1). 4. Lymph node, level VII, excision (D): - One lymph node, negative for carcinoma (0/1). 5. Lymph nodes, left gastric lymph node packet, excision (E): - Two lymph nodes, negative for carcinoma (0/2). 6. Lymph node, ni-esophageal, excision (F): - One lymph node, negative for carcinoma (0/1). 7. Stomach, additional resection (G): - Gastric antral mucosa, negative for carcinoma. 8. Esophagus, final margin, resection (H): - Squamous mucosa and intestinal metaplasia, negative for carcinoma. [facility] [place]/13/2020 SYNOPTIC REPORT OF BERRY PATHOLOGIC FINDINGS DISTAL THORACIC ESOPHAGUS, PROXIMAL STOMACH: ESOPHAGUS:ENDOSCOPIC RESECTION, ESOPHAGECTOMY, OR ESOPHAGOGASTRECTOMY WORKSHEET Procedure: Esophagogastrectomy Tumor Site: Distal esophagus (lower thoracic esophagus) Relationship of Tumor to Esophagogastric Junction: Tumor midpoint lies in the distal esophagus and tumor involves the esophagogastric junction Tumor Size: Greatest dimension: 4.5 cm Additional dimension: 3 cm Additional dimension: 1.1 cm Histologic Type: Adenocarcinoma Histologic Grade: G2: Moderately differentiated Tumor Extension: Tumor invades adventitia Margins: All margins uninvolved by invasive carcinoma, dysplasia, and intestinal metaplasia Margins examined: Proximal mucosal, distal mucosal, soft tissue/adventitial Distance of invasive carcinoma from closest margin: 0.5 cm Specify closest margin: Soft tissue/adventitial Proximal Margin: Proximal margin uninvolved by invasive carcinoma Distal Margin: Distal margin uninvolved by invasive carcinoma Radial Margin: Radial margin uninvolved by invasive carcinoma Treatment Effect: Present, single cells or rare small groups of cancer cells (near complete response, score 1) Lymphovascular Invasion: Not identified Perineural Invasion: Not identified Regional Lymph Nodes: Number of regional lymph nodes involved: 0 Number of regional lymph nodes examined: 29 Pathologic Stage Classification (pTNM,AJCC 8th ed) TNM Descriptors: y (posttreatment) Primary Tumor (pT): pT3: Tumor invades adventitia Regional Lymph Nodes (pN): pN0: No regional lymph node metastasis Distant Metastasis (pM): Not applicable/Not confirmed pathologically in this case REASON FOR VISIT: Follow up after EGD HPI: Jacob Landa is a 66 year old male with a past medical history significant for coronary artery disease (CABG x4 vessels 2002; stents in 2014 and 2018), HTN, hyperlipidemia, aortic valve stenosis (s/p TAVR 02/2019), asthma, GERD, degenerative disc disease of the lumbar spine, and BPH who initially presented with dysphagia. EGD/EUS and PET scan confirmed T3N1 distal esophageal adenocarcinoma. He underwent concurrent chemotherapy/radiation completed on 06/23/2020 and now presents for surgical resection as the final stage in trimodal therapy. PHYSICAL EXAM: VITAL SIGNS: BP 136/74 Pulse (!) 56 Temp 36.7 C (98.1 F) (Oral) Ht 170.2 cm (5' 7") Wt 79.3kg (174 lb 12.8 oz) SpO2 98% BMI 27.38 kg/m GENERAL no acute distress alert and oriented x3 HEENT normocephalic, head midline, oral mucous membranes moist ABDOMEN soft nontender, nondistended. Bowel sounds active x 4 quadrants EXTREMITIES no clubbing, cyanosis or edema MUSCULOSKELETAL gait within normal limits SKIN no rashes or petechiae TEST/RESULTS: EGD 09/07/2021 - Dr Francesca Vazquez mpression: - Normal oropharynx. - No gross lesions in esophagus. Anastomosis at 30cm is widely patent without any lesions. - No gross lesions in the stomach. - Non-bleeding duodenal ulcer with no stigmata of bleeding. Biopsied. INTERVAL HISTORY: Jacob Landa returns to clinic following an EGD with Dr Vazquez. Pt denies fever, chills, diahhrea, and vomiting. He is tolerating diet, and moving bowels regularly. He has been off his PPI since March and he didn't realize. He reports increase in GERD symptoms. EGD shows duodenal ulcer. Biopsied. Protonix BID, TUMS before bedtime. Return in 2 months with an EGD. Patients states understanding and all questions were answered to satisfaction; will call if new or worsening symptoms occur or if any additional questions arise. IMPRESSION: 66 year old year old male s/p Adrián Roger esophagectomy, Pyloromyotomy, Jejunostomy tubeplacement with Dr Renetta Radford on 08/09/2020. Pathology showed ypT3N0 adenocarcinoma distal esophagus. JARAD. PLAN: - Protonix BID - TUMS prior to bedtime - Return for EGD in 2 months - Oncology follow up, Dr. Jenkins - Radiation/Oncology, Dr.Lee Queta Gleason APRN.MOHINI documented in this encounterCommunity [facility]06-01-2022 Nurse Note* Luly Almeida LPN - 09/07/2021 1:15 PM EDT AMBULATORY PATIENT EDUCATION NOTE TOPIC: GI PROCEDURES: Esophagogastroduodenoscopy(EGD) for control of bleeding,dilation(any means),imaging,tube placement READINESS TO LEARN INSTRUCTION PROVIDED TO: Patient, readness to learn accessed prior to procedure, Family member and Patient and family member COGNITIVE ABILITY: Alert and oriented PTED MOTIVATION TO LEARN: Eager Interested FAMILY SUPPORT: High - Very involved in pt care IPATIENT LEARNS BEST BY: Individual Instruction Written Instruction - Hand-outs Verbal Instruction FACTORS AFFECTING LEARNING: None PHYSICAL LIMITATIONS AFFECTING LEARNING: None LEARNING RESPONSE METHOD OF INSTRUCTION: Individual instruction PATIENT / FAMILY RESPONSE: Verbalizes understanding of: WORSENING CONDITION- Signs and symptoms of aworsening condition that warrant a call to the physician FOLLOW-UP PLAN: Recommend - Recommend continued instruction and follow up as directed SUPPLEMENTAL MATERIAL: Procedure Discharge Instructions REFERRAL (RECOMMENDATION): None documented in this encounterCommunity [facility] Center05-18-2022 History of Present illness Narrative* Mari Akhtar APRN.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 - 08/24/2021 8:04 AM EDT Chief Complaint Patient presents with: Established Patient HPI: Jacob Landa is a 66 year old male who presents here today for evaluation for treatment tomorrow. Per Dr. Jenkins's previous note: H/o coronary artery disease (CABG x4 vessels 2002; 2 stents at [facility] /2018; 3 stents [facility] 2014), HTN, hyperlipidemia, aortic valve stenosis (s/p TAVR bioprosthetic valve 02/2019), asthma, GERD, colon polyps, degenerative disc disease of the lumbar spine, BPH and history of kidney stones. Patient began having dysphagia and odynophagia several months prior to evaluation. He started on Protonix and had mild improvement in symptoms. EGD 04/15/2020: The examined jejunum was normal. The in the duodenum was normal. Scattered mild inflammation was found in the entire examined stomach. Biopsies were taken with a cold forceps for histology. Mildly severe esophagitis with no bleeding was found. Biopsies were taken with a cold forceps for histology. A large, fungating mass with bleeding and no stigmata of recent bleeding was found in the middle third of the esophagus, 32 to 38 cm from the incisors. The mass was partially obstructing and circumferential. Biopsies were taken with a cold forceps for histology. Pathology: FINAL DIAGNOSIS 1. Stomach, antrum, biopsy (A) - Gastric antral mucosa with no significant diagnostic alteration. - No morphological evidence of Helicobacter pylori organisms. 2. Esophagus, tumor at 32-38 cm, biopsy (B) - Adenocarcinoma, moderately differentiated. - See comment. 3. Esophagogastric junction, at 40 cm, biopsy (C) - Inflamed gastric cardia-type mucosa. - No evidence of intestinal metaplasia or dysplasia. COMMENT 2. The biopsy reveals moderately differentiated adenocarcinoma with at least lamina propria involvement (pT1a at least). There are focal features suspicious for submucosal invasion. CT Chest 04/15/2020: Lines, tubes, and devices: None. Lung parenchyma and airways: Trachea and central bronchi are patent with no endobronchial lesion. No focal consolidation. Few scattered cysts in the lower lobes. Scattered calcified granulomata consistent with remote granulomatous disease. Minimal subsegmental atelectasis dependent portions of the lower lobes. 2 mm nodule posterior right upper lobe (image 52) which may be calcified. 2 mm nodule abutting the left major fissure (image 75) which may represent a perifissural node. Otherwise, no suspicious pulmonary nodule. Pleural space: No pleural effusion. No pleural thickening. Lower neck, lymph nodes, and mediastinum: Moderate size hiatal hernia with suspected wall thickening above the hiatal hernia in the distal esophagus perhaps at the site of known neoplasm. Remainder of the esophagus is collapsed. Imaged thyroid gland is within normal limits. Calcified subcarinal and right hilar nodes consistent with remote granulomatous disease. No supraclavicular, axillary or hilar lymphadenopathy. Few nonspecific (short axis diameter <10 mm) mediastinal nodes are present, none enlarged by size criteria. Heart, pericardium, and thoracic vessels: Sternotomy for CABG and aortic valve replacement. Thoracic aorta is normal in caliber with mild atherosclerotic calcifications. Main pulmonary arteries normal caliber. Cardiac chambers are normal in size. No pericardial effusion or thickening. Bones and soft tissues: No suspicious osseous lesion. Mild endplate degenerative changes of the thoracic spine. Chest wall soft tissues are grossly within normal limits. Upper abdomen: Dedicated CT abdomen pelvis dictated separately. Rheostat Assembler (topogram) images: No additional findings. CT A/P 04/15/2020: Liver: No mass. Biliary: No bile duct dilation. Gallbladder is unremarkable. Spleen: No mass. No splenomegaly. Pancreas: No mass or duct dilation. Adrenals: 1 cm fatty density RIGHT adrenal gland consistent with a myelolipoma. Left adrenal gland is unremarkable. Kidneys: 2.5 cm medial LEFT renal density and 1 cm lower pole RIGHT renal density consistent with a cyst. GI tract: No dilation or wall thickening. Appendix appears normal. There is colonic diverticulosis. Lymph nodes: No abdominal or pelvic lymphadenopathy. Mesentery/Peritoneum: No ascites or mass. Retroperitoneum: No mass. Vasculature: The celiac axis and SMA are patent. The portal vein and branches, splenic vein, SMV, and hepatic veins are patent. Arterial atherosclerotic disease without aneurysm. Pelvis: No mass, ascites or fluid collection. Bones/Soft Tissues: Status post post RIGHT inguinal herniorrhaphy with mesh. Lower thorax: A chest CT performed will be reported separately. Rheostat Assembler (topogram) images: No additional findings. EGD/EUS 04/26/2020: A partially obstructing, malignant esophageal tumor was found to lower 30 esophagus. Gastric tumor in the cardia extension from distal esophageal tumor. Masses none lower third of the esophagus. -EUS staging T3 N1. At initial consultation visit here: He developed dysphagia and odynophagia several months ago. It was also associated with a lot of hiccuping. Currently he is able to swallow most foods except for meats. He has been able to get down some cooked vegetables and potatoes as long as pieces are very small and he chews well. Only he will have some regurgitation of clear fluid. No nausea per se. No longer having symptoms of reflux. His functional capacity is very good. He endorses dyspnea with heavy exertion but that has been stable. He does not have any symptoms of exertional chest pain or pressure. Mild lower extremity swelling that he attributes to previous vein harvesting. He is a lifelong non-smoker. He does not drink alcohol. Used to drink only very rarely. At CT scans on 07/14/2020 which showed no evidence of metastatic disease. Mild decrease in thickeningof the distal esophagus was noted. Previous therapy: 1) Concurrent chemotherapy/radiation with carboplatin and paclitaxel. 05/24 through 06/23/2020. Underwent Adrián Roger esophagectomy on 08/09/2020. Pathology: 1. Esophagus and stomach, distal thoracic esophagus and proximal stomach, esophagectomy (A): - Residual adenocarcinoma, status-post chemoradiation treatment, focally invading the adventitia. - Surgical resection margins negative for carcinoma. - Twenty-four lymph nodes, negative for carcinoma (0/24). - See synoptic report. 2. Soft tissue, pre-peritoneal fat pad, excision (B): - Fibroadipose connective tissue. 3. Lymph node, level VIII, excision (C): - One lymph node, negative for carcinoma (0/1). 4. Lymph node, level VII, excision (D): - One lymph node, negative for carcinoma (0/1). 5. Lymph nodes, left gastric lymph node packet, excision (E): - Two lymph nodes, negative for carcinoma (0/2). 6. Lymph node, ni-esophageal, excision (F): - One lymph node, negative for carcinoma (0/1). 7. Stomach, additional resection (G): - Gastric antral mucosa, negative for carcinoma. 8. Esophagus, final margin, resection (H): - Squamous mucosa and intestinal metaplasia, negative for carcinoma. Current therapy: 1) Adjuvant nivolumab. Patient had CT scans March 09/2021. Following that he was observed to have a mild increase in serum creatinine 1.3 mg/dL. He was hospitalized on 03/25 for increasing shortness of breath. At that time creatinine was 2.5 mg/dL. Decreased to 1.8 mg/dL with hydration overnight. Repeat creatinine on 03/30 was 1.3 and then again 1.3 mg/dL on 04/11 and then 1.02 mg/dL on 05/05. The LEELA was attributed to immunotherapy but timing suggest may have also been due to IV contrast administration for CT scans on 03/09. Previously had an echocardiogram on 01/07/2021. Normal left ventricular function with EF estimated 55 to 60%. Right ventricle was noted to be normal with normal systolic function. Grade 1 diastolic dysfunction was observed. There was a normal-appearing bioprosthetic AV functioning valve with trivialAI. No new concerns today. Appetite:"It's ok-getting better." Energy level:"It comes and goes." Denies fevers or recent illness. Resp:denies cough or sob Cardiac:denies chest pain/palpitations GI:denies abd pain, occ. tightness across upper abd since surgery, denies n/v, moving bowels regularly :denies dysuria/hematuria Extrem:denies pain otherwise Neuro:denies symptoms of neuropathy Skin:denies rashes Heme:denies bleeding The ROS is otherwise negative. Past medical history, appointments, medications, allergies reviewed. No changes. EXAM: BP 128/73 Pulse 71 Temp 36.7 C (98 F) (Temporal) Wt 81.9 kg (180 lb 8 oz) BMI 25.90 kg/m APPEARANCE Well appearing, alert, in no acute distress, well-hydrated, well nourished. HEART RRR with normal S1 and S2, no murmurs LUNG clear to auscultation LYMPH NODES No cervical lymphadenopathy, No supraclavicular lymphadenopathy and No axillary lymphadenopathy. ABDOMEN bowel sounds normoactive, soft, non-tender, non-distended, without organomegaly or palpablemasses EXTREMITIES No edema NEURO Awake, alert and oriented x 3, Normal gait and No involuntary motions. SKIN Skin color, texture, turgor normal, no suspicious rashes or lesions LABS: Pending ASSESSMENT/PLAN: 1. 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 Tolerated therapy well overall, but was able to only get 4 doses preoperative chemotherapy secondary to cytopenias. ypT3 N0 (0 of 29 LNs). - Overall tolerating Opdivo well. - Labs pending. - Continue current medications. - EGD/Thoracic surgery follow up in September as scheduled. - Follow up with Cardiology as scheduled in September. - CT chest/abd/pelvis mid September. - Proceed as scheduled tomorrow for Opdivo pending all labs. - Follow up as scheduled otherwise. - Pt. aware to call office with any questions/concerns. The patient indicates understanding of these issues and agrees with the plan. All documentation from previous visit of 07/27/21-Dr. Jenkins was copied and pasted, documentation hasbeen reviewed and edited as necessary for today's visit. Mari Akhtar APRN.[email or web address] documented in this encounterCommunity [facility]04[facility]22 History of Present illness Narrative* HUNTER Santo - 07/28/2021 3:01 PM EDT Social Work Problem Referral Note INFORMATION/REFERRAL : Jacob Landa 66 year old male was referred by [facility] Social Work for the following reason(s): Insurance letter PERSONS INTERVIEWED: patient INTERVENTION: Information & Referral Service Co-ordination Affect/Mood: The patient is noted as appropriate IDENTIFIED PROBLEMS/NEEDS: Continue to assess/collaborate Intervention/Referral to be provided:Arrangements made for continuity of care IMPRESSION/PLAN: Patient brought in letter from Medicare stating service from 10/29/2020 was denied at that time, but has now been approved. SW advised patient he could call billing to inquire if he already paid for this DOS. Patient agreeable and denies other needs. F/U APPOINTMENT: PRHUNTER Andersen documented in this encounterCommunity [facility]04-[facility]-2022 History of Present illness Narrative* Samaria Bueno RN - 07/28/2021 3:01 PM EDT Assessment unchanged from 07/27/[address] Jenkins documented in this encounterCommunity [facility] Center04-21-2022 Miscellaneous Notes* Telephone Encounter - Krystina Quinones LPN - 07/28/2021 8:55 AM EDT Pt notified of same. Krystina Quinones LPN * Telephone Encounter - Usha Mcgovern PA-C - 07/28/2021 8:47 AM EDT Let patient know that his cholesterol and urine results were completely normal. Usha Mcgovern PA-C documented in this encounterCommunity [facility] Center04-20-2022 History of Present illness Narrative* Richard Jenkins DO - 07/27/2021 8:40 AM EDT Oncologic problem(s): 1) Adenocarcinoma the GE junction. HPI: The patient is a 65-year-old male with a past medical history significant for coronary artery disease (CABG x4 vessels 2002; 2 stents at [facility] /2018; 3 stents [facility] 2014), HTN, hyperlipidemia, aortic valve stenosis (s/p TAVR bioprosthetic valve 02/2019), asthma, GERD, colon polyps, degenerative disc disease of the lumbar spine, BPH and history of kidney stones. Patient began having dysphagia and odynophagia several months prior to evaluation. He started on Protonix and had mild improvement in symptoms. EGD 04/15/2020: The examined jejunum was normal. The in the duodenum was normal. Scattered mild inflammation was found in the entire examined stomach. Biopsies were taken with a cold forceps for histology. Mildly severe esophagitis with no bleeding was found. Biopsies were taken with a cold forceps for histology. A large, fungating mass with bleeding and no stigmata of recent bleeding was found in the middle third of the esophagus, 32 to 38 cm from the incisors. The mass was partially obstructing and circumferential. Biopsies were taken with a cold forceps for histology. Pathology: FINAL DIAGNOSIS 1. Stomach, antrum, biopsy (A) - Gastric antral mucosa with no significant diagnostic alteration. - No morphological evidence of Helicobacter pylori organisms. 2. Esophagus, tumor at 32-38 cm, biopsy (B) - Adenocarcinoma, moderately differentiated. - See comment. 3. Esophagogastric junction, at 40 cm, biopsy (C) - Inflamed gastric cardia-type mucosa. - No evidence of intestinal metaplasia or dysplasia. COMMENT 2. The biopsy reveals moderately differentiated adenocarcinoma with at least lamina propria involvement (pT1a at least). There are focal features suspicious for submucosal invasion. CT Chest 04/15/2020: Lines, tubes, and devices: None. Lung parenchyma and airways: Trachea and central bronchi are patent with no endobronchial lesion. No focal consolidation. Few scattered cysts in the lower lobes. Scattered calcified granulomata consistent with remote granulomatous disease. Minimal subsegmental atelectasis dependent portions of the lower lobes. 2 mm nodule posterior right upper lobe (image 52) which may be calcified. 2 mm nodule abutting the left major fissure (image 75) which may represent a perifissural node. Otherwise, no suspicious pulmonary nodule. Pleural space: No pleural effusion. No pleural thickening. Lower neck, lymph nodes, and mediastinum: Moderate size hiatal hernia with suspected wall thickening above the hiatal hernia in the distal esophagus perhaps at the site of known neoplasm. Remainder of the esophagus is collapsed. Imaged thyroid gland is within normal limits. Calcified subcarinal and right hilar nodes consistent with remote granulomatous disease. No supraclavicular, axillary or hilar lymphadenopathy. Few nonspecific (short axis diameter <10 mm) mediastinal nodes are present, none enlarged by size criteria. Heart, pericardium, and thoracic vessels: Sternotomy for CABG and aortic valve replacement. Thoracic aorta is normal in caliber with mild atherosclerotic calcifications. Main pulmonary arteries normal caliber. Cardiac chambers are normal in size. No pericardial effusion or thickening. Bones and soft tissues: No suspicious osseous lesion. Mild endplate degenerative changes of the thoracic spine. Chest wall soft tissues are grossly within normal limits. Upper abdomen: Dedicated CT abdomen pelvis dictated separately. Rheostat Assembler (topogram) images: No additional findings. CT A/P 04/15/2020: Liver: No mass. Biliary: No bile duct dilation. Gallbladder is unremarkable. Spleen: No mass. No splenomegaly. Pancreas: No mass or duct dilation. Adrenals: 1 cm fatty density RIGHT adrenal gland consistent with a myelolipoma. Left adrenal gland is unremarkable. Kidneys: 2.5 cm medial LEFT renal density and 1 cm lower pole RIGHT renal density consistent with a cyst. GI tract: No dilation or wall thickening. Appendix appears normal. There is colonic diverticulosis. Lymph nodes: No abdominal or pelvic lymphadenopathy. Mesentery/Peritoneum: No ascites or mass. Retroperitoneum: No mass. Vasculature: The celiac axis and SMA are patent. The portal vein and branches, splenic vein, SMV, and hepatic veins are patent. Arterial atherosclerotic disease without aneurysm. Pelvis: No mass, ascites or fluid collection. Bones/Soft Tissues: Status post post RIGHT inguinal herniorrhaphy with mesh. Lower thorax: A chest CT performed will be reported separately. Rheostat Assembler (topogram) images: No additional findings. EGD/EUS 04/26/2020: A partially obstructing, malignant esophageal tumor was found to lower 30 esophagus. Gastric tumor in the cardia extension from distal esophageal tumor. Masses none lower third of the esophagus. -EUS staging T3 N1. At initial consultation visit here: He developed dysphagia and odynophagia several months ago. It was also associated with a lot of hiccuping. Currently he is able to swallow most foods except for meats. He has been able to get down some cooked vegetables and potatoes as long as pieces are very small and he chews well. Only he will have some regurgitation of clear fluid. No nausea per se. No longer having symptoms of reflux. His functional capacity is very good. He endorses dyspnea with heavy exertion but that has been stable. He does not have any symptoms of exertional chest pain or pressure. Mild lower extremity swelling that he attributes to previous vein harvesting. He is a lifelong non-smoker. He does not drink alcohol. Used to drink only very rarely. At CT scans on 07/14/2020 which showed no evidence of metastatic disease. Mild decrease in thickeningof the distal esophagus was noted. Previous therapy: 1) Concurrent chemotherapy/radiation with carboplatin and paclitaxel. 05/24 through 06/23/2020. Underwent [place] esophagectomy on 08/09/2020. Pathology: 1. Esophagus and stomach, distal thoracic esophagus and proximal stomach, esophagectomy (A): - Residual adenocarcinoma, status-post chemoradiation treatment, focally invading the adventitia. - Surgical resection margins negative for carcinoma. - Twenty-four lymph nodes, negative for carcinoma (0/24). - See synoptic report. 2. Soft tissue, pre-peritoneal fat pad, excision (B): - Fibroadipose connective tissue. 3. Lymph node, level VIII, excision (C): - One lymph node, negative for carcinoma (0/1). 4. Lymph node, level VII, excision (D): - One lymph node, negative for carcinoma (0/1). 5. Lymph nodes, left gastric lymph node packet, excision (E): - Two lymph nodes, negative for carcinoma (0/2). 6. Lymph node, ni-esophageal, excision (F): - One lymph node, negative for carcinoma (0/1). 7. Stomach, additional resection (G): - Gastric antral mucosa, negative for carcinoma. 8. Esophagus, final margin, resection (H): - Squamous mucosa and intestinal metaplasia, negative for carcinoma. Current therapy: 1) Adjuvant nivolumab. Patient had CT scans March 09/2021. Following that he was observed to have a mild increase in serum creatinine 1.3 mg/dL. He was hospitalized on 03/25 for increasing shortness of breath. At that time creatinine was 2.5 mg/dL. Decreased to 1.8 mg/dL with hydration overnight. Repeat creatinine on 03/30 was 1.3 and then again 1.3 mg/dL on 04/11 and then 1.02 mg/dL on 05/05. The LEELA was attributed to immunotherapy but timing suggest may have also been due to IV contrast administration for CT scans on 03/09. Previously had an echocardiogram on 01/07/2021. Normal left ventricular function with EF estimated 55 to 60%. Right ventricle was noted to be normal with normal systolic function. Grade 1 diastolic dysfunction was observed. There was a normal-appearing bioprosthetic AV functioning valve with trivialAI. Presents for ongoing oncologic management. Interim history: He was started back on Lasix when I last saw him. He has noticed an improvement in dyspnea on exertion. No longer having any generalized swelling. Denies symptoms of palpitation, tachycardia and lightheadedness. No exertional chest pain or pressure. Occasional reflux. Denies nausea. Appetite is subjectively improving. Bowels have been moving on a regular basis. No diarrhea. Occasional pain across the upper abdomen which may be related to eating but he is not sure. Episodes are brief. Not having any symptomatic side effect from immunotherapy subjectively. PMH, medications and allergies personally reviewed by me today. Any changes documented in appropriate section. ROS: Constitutional: Denies episodes of fever and night sweats. Neuro: Denies CHAIDEZ, vertigo, dizziness and imbalance. Denies symptoms of neuropathy. HEENT: No recent change in voice, vision or hearing. Resp: See above. CVS: See above. GI: See above. : Denies dysuria or gross hematuria. No symptoms of bladder outlet obstruction. Endo: Denies hot flashes. Denies polyuria and polydipsia. Denies heat and cold intolerance. Musculoskeletal: Denies bone, back, joint and muscular pain. Derm: Denies rash. Denies jaundice and diffuse pruritis. Heme: Denies unusual bleeding and unexplained bruising. Psych: Normal mood. PHYSICAL EXAM: Vitals: Blood pressure 126/85, pulse 80, temperature 36.8 C (98.2 F), temperature source Temporal, weight 82.8 kg (182 lb 8 oz). Well-appearing and in no acute distress. EYES: Sclerae are anicteric bilaterally. NECK: Supple. LYMPHATIC: There is no palpable cervical or supraclavicular adenopathy. RESPIRATORY: There is exam evidence of residual bilateral pleural effusion. CARDIOVASCULAR: Rhythm is regular. ABDOMEN: The abdomen is nondistended. Extremities: No swelling or edema. SKIN: No jaundice or rash. No petechiae. NEUROLOGIC: statistics teacher II-XII are grossly intact. No focal motor weakness. 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 -Tolerated therapy well overall, but was able to only get 4 doses preoperative chemotherapy secondary to cytopenias. -ypT3 N0 (0 of 29 LNs). -Most recent EGD was 02/2021. No lesions were observed in the esophagus. The anastomosis at 25 cm was widely patent and well-healed. No dilation was required. No gross lesions were identified in the rest of the examined GI tract down to the second portion of the duodenum. -He is tolerating immunotherapy very well. Again discussed plan to continue nivolumab for up to a year pending tolerance. Plan: -Continue nivolumab. -Repeat CT scans in September. -Continue Lasix 20 mg daily. (D50.0) Iron deficiency anemia due to chronic blood loss Assessment: -Hemoglobin has been more stable lately. Plan: -Continue to monitor. (N17.9) LEELA (acute kidney injury) (HCC) Assessment: -May have been from CT contrast. -Resolved. -Serum creatinine improved even on current dose of Lasix. Plan: -Continue monitoring serum creatinine. (J90) Pleural effusion (R06.00, R06.89) Dyspnea and respiratory abnormalities Assessment: -Prior to surgery, he had been on diuretic therapy. -CT scans suggest generalized fluid retention. -Renal function now normal. Plan: -Continue Lasix 20 mg daily along with potassium supplement. -He is scheduled for cardiology follow-up in September. Portions of this documentation were copied and pasted from previous office visit notes in order to provide a cohesive continuity of the history. The note has been reviewed and edited and updated as necessary. During this patient visit I have spent approximately 20 minutes out of 30 in counseling regarding treatment options, medications and test results and coordinating care. Richard Jenkins DO documented in this encounterCommunity [facility]05-08-[facility]21 History of Past illness Narrative* Problem Noted Date Resolved Date On tube feeding diet 08/14/2020 01/13/2021 Overview: History: 65 year old male s/p [place] esophagectomy, Pyloromyotomy, Jejunostomy tube placement for esophageal adenocarcinoma -Diet: Isosource 1.5 to 50 cc hour with 100 cc water flushes 8 times per day and Bene protein 3 times per day Removed 11/17/2020 Obesity, Class I, BMI 30-34.9 05/17/2020 Obesity, Class II, BMI 35-39.9 E66.9 07/23/2017 07/19/2021 Chest pain 07/23/2017 07/23/2017 Hematuria 07/20/2014 12/01/2016 Arthritis of right hand 08/04/2013 07/26/19 16 Right carpal tunnel syndrome 08/04/2013 Boil of buttock 05/10/2009 07/26/2015 Epidermal inclusion cyst 05/10/2009 016 Pyoderma, unspecified 05/10/2009 07/26/2015 Contact dermatitis and other eczema, due to unspecified cause 05/10/2009 07/26/2015 Other acne 05/10/2009 07/26/2015 Cellulitis and abscess of trunk 10/24/2007 07/26/2015 INGUINAL HERNIA, UNILATERAL W/O GANGRENE/OBSTRUC TION 01/21/2007 07/26/2015 UMBILICAL HERNIA W/O GANGRENE/OBSTRUCTION 200607/26/2015 Cough 02/19/2006 07/26/2015 Calculus of kidney 07/26/2015 documented as of this encounter (statuses as of 07/27/2021) [facility] of Past illness Narrative* Problem Noted Date Resolved Date On tube feeding diet 08/14/2020 01/13/2021 Overview: History: 65 year old male s/p [place] esophagectomy, Pyloromyotomy, Jejunostomy tube placement for esophageal adenocarcinoma -Diet: Isosource 1.5 to 50 cc hour with 100 cc water flushes 8 times per day and Bene protein 3 times per day Removed 11/17/2020 Obesity, Class I, BMI 30-34.9 05/17/2020 Obesity, Class II, BMI 35-39.9 E66.9 07/23/2017 07/19/2021 Chest pain 07/23/2017 07/23/2017 Hematuria 07/20/2014 12/01/2016 Arthritis of right hand 08/04/2013 07/26/19 16 Right carpal tunnel syndrome 08/04/2013 Boil of buttock 05/10/2009 07/26/2015 Epidermal inclusion cyst 05/10/2009 016 Pyoderma, unspecified 05/10/2009 07/26/2015 Contact dermatitis and other eczema, due to unspecified cause 05/10/2009 07/26/2015 Other acne 05/10/2009 07/26/2015 Cellulitis and abscess of trunk 10/24/2007 07/26/2015 INGUINAL HERNIA, UNILATERAL W/O GANGRENE/OBSTRUC TION 01/21/2007 07/26/2015 UMBILICAL HERNIA W/O GANGRENE/OBSTRUCTION 200607/26/2015 Cough 02/19/2006 07/26/2015 Calculus of kidney 07/26/2015 documented as of this encounter (statuses as of 07/28/2021) [facility] Past illness Narrative* Problem Noted Date Resolved Date On tube feeding diet 08/14/2020 01/13/2021 Overview: History: 65 year old male s/p [place] esophagectomy, Pyloromyotomy, Jejunostomy tube placement for esophageal adenocarcinoma -Diet: Isosource 1.5 to 50 cc hour with 100 cc water flushes 8 times per day and Bene protein 3 times per day Removed 11/17/2020 Obesity, Class I, BMI 30-34.9 05/17/2020 Obesity, Class II, BMI 35-39.9 E66.9 07/23/2017 07/19/2021 Chest pain 07/23/2017 07/23/2017 Hematuria 07/20/2014 12/01/2016 Arthritis of right hand 08/04/2013 07/26/19 16 Right carpal tunnel syndrome 08/04/2013 Boil of buttock 05/10/2009 07/26/2015 Epidermal inclusion cyst 05/10/2009 016 Pyoderma, unspecified 05/10/2009 07/26/2015 Contact dermatitis and other eczema, due to unspecified cause 05/10/2009 07/26/2015 Other acne 05/10/2009 07/26/2015 Cellulitis and abscess of trunk 10/24/2007 07/26/2015 INGUINAL HERNIA, UNILATERAL W/O GANGRENE/OBSTRUC TION 01/21/2007 07/26/2015 UMBILICAL HERNIA W/O GANGRENE/OBSTRUCTION 200607/26/2015 Cough 02/19/2006 07/26/2015 Calculus of kidney 07/26/2015 documented as of this encounter (statuses as of 07/28/2021) [facility] Narrative* Problem Noted Date Resolved Date On tube feeding diet 08/14/2020 01/13/2021 Overview: History: 65 year old male s/p [facility] [place] esophagectomy, Pyloromyotomy, Jejunostomy tube placement for esophageal adenocarcinoma -Diet: Isosource 1.5 to 50 cc hour with 100 cc water flushes 8 times per day and Bene protein 3 times per day Removed 11/17/2020 Obesity, Class I, BMI 30-34.9 05/17/2020 Obesity, Class II, BMI 35-39.9 E66.9 07/23/2017 07/19/2021 Chest pain 07/23/2017 07/23/2017 Hematuria 07/20/2014 12/01/2016 Arthritis of right hand 08/04/2013 07/26/19 16 Right carpal tunnel syndrome 08/04/2013 Boil of buttock 05/10/2009 07/26/2015 Epidermal inclusion cyst 05/10/2009 016 Pyoderma, unspecified 05/10/2009 07/26/2015 Contact dermatitis and other eczema, due to unspecified cause 05/10/2009 07/26/2015 Other acne 05/10/2009 07/26/2015 Cellulitis and abscess of trunk 10/24/2007 07/26/2015 INGUINAL HERNIA, UNILATERAL W/O GANGRENE/OBSTRUC TION 01/21/2007 07/26/2015 UMBILICAL HERNIA W/O GANGRENE/OBSTRUCTION 200607/26/2015 Cough 02/19/2006 07/26/2015 Calculus of kidney 07/26/2015 documented as of this encounter (statuses as of 07/28/2021) [facility] Narrative* Problem Noted Date Resolved Date On tube feeding diet 08/14/2020 01/13/2021 Overview: History: 65 year old male s/p [place] esophagectomy, Pyloromyotomy, Jejunostomy tube placement for esophageal adenocarcinoma -Diet: Isosource 1.5 to 50 cc hour with 100 cc water flushes 8 times per day and Bene protein 3 times per day Removed 11/17/2020 Obesity, Class I, BMI 30-34.9 05/17/2020 Obesity, Class II, BMI 35-39.9 E66.9 07/23/2017 07/19/2021 Chest pain 07/23/2017 07/23/2017 Hematuria 07/20/2014 12/01/2016 Arthritis of right hand 08/04/2013 07/26/19 16 Right carpal tunnel syndrome 08/04/2013 Boil of buttock 05/10/2009 07/26/2015 Epidermal inclusion cyst 05/10/2009 016 Pyoderma, unspecified 05/10/2009 07/26/2015 Contact dermatitis and other eczema, due to unspecified cause 05/10/2009 07/26/2015 Other acne 05/10/2009 07/26/2015 Cellulitis and abscess of trunk 10/24/2007 07/26/2015 INGUINAL HERNIA, UNILATERAL W/O GANGRENE/OBSTRUC TION 01/21/2007 07/26/2015 UMBILICAL HERNIA W/O GANGRENE/OBSTRUCTION 200607/26/2015 Cough 02/19/2006 07/26/2015 Calculus of kidney 07/26/2015 documented as of this encounter (statuses as of 08/04/2021) [facility] Narrative* Problem Noted Date Resolved Date On tube feeding diet 08/14/2020 01/13/2021 Overview: History: 65 year old male s/p [place] esophagectomy, Pyloromyotomy, Jejunostomy tube placement for esophageal adenocarcinoma -Diet: Isosource 1.5 to 50 cc hour with 100 cc water flushes 8 times per day and Bene protein 3 times per day Removed 11/17/2020 Obesity, Class I, BMI 30-34.9 05/17/2020 Obesity, Class II, BMI 35-39.9 E66.9 07/23/2017 07/19/2021 Chest pain 07/23/2017 07/23/2017 Hematuria 07/20/2014 12/01/2016 Arthritis of right hand 08/04/2013 07/26/19 16 Right carpal tunnel syndrome 08/04/2013 Boil of buttock 05/10/2009 07/26/2015 Epidermal inclusion cyst 05/10/2009 016 Pyoderma, unspecified 05/10/2009 07/26/2015 Contact dermatitis and other eczema, due to unspecified cause 05/10/2009 07/26/2015 Other acne 05/10/2009 07/26/2015 Cellulitis and abscess of trunk 10/24/2007 07/26/2015 INGUINAL HERNIA, UNILATERAL W/O GANGRENE/OBSTRUC TION 01/21/2007 07/26/2015 UMBILICAL HERNIA W/O GANGRENE/OBSTRUCTION 200607/26/2015 Cough 02/19/2006 07/26/2015 Calculus of kidney 07/26/2015 documented as of this encounter (statuses as of 08/11/2021) [facility] Narrative* Problem Noted Date Resolved Date On tube feeding diet 08/14/2020 01/13/2021 Overview: History: 65 year old male s/p [place] esophagectomy, Pyloromyotomy, Jejunostomy tube placement for esophageal adenocarcinoma -Diet: Isosource 1.5 to 50 cc hour with 100 cc water flushes 8 times per day and Bene protein 3 times per day Removed 11/17/2020 Obesity, Class I, BMI 30-34.9 05/17/2020 Obesity, Class II, BMI 35-39.9 E66.9 07/23/2017 07/19/2021 Chest pain 07/23/2017 07/23/2017 Hematuria 07/20/2014 12/01/2016 Arthritis of right hand 08/04/2013 07/26/19 16 Right carpal tunnel syndrome 08/04/2013 Boil of buttock 05/10/2009 07/26/2015 Epidermal inclusion cyst 05/10/2009 016 Pyoderma, unspecified 05/10/2009 07/26/2015 Contact dermatitis and other eczema, due to unspecified cause 05/10/2009 07/26/2015 Other acne 05/10/2009 07/26/2015 Cellulitis and abscess of trunk 10/24/2007 07/26/2015 INGUINAL HERNIA, UNILATERAL W/O GANGRENE/OBSTRUC TION 01/21/2007 07/26/2015 UMBILICAL HERNIA W/O GANGRENE/OBSTRUCTION 200607/26/2015 Cough 02/19/2006 07/26/2015 Calculus of kidney 07/26/2015 documented as of this encounter (statuses as of 08/24/2021) [facility] Narrative* Problem Noted Date Resolved Date On tube feeding diet 08/14/2020 01/13/2021 Overview: History: 65 year old male s/p [place] esophagectomy, Pyloromyotomy, Jejunostomy tube placement for esophageal adenocarcinoma -Diet: Isosource 1.5 to 50 cc hour with 100 cc water flushes 8 times per day and Bene protein 3 times per day Removed 11/17/2020 Obesity, Class I, BMI 30-34.9 05/17/2020 Obesity, Class II, BMI 35-39.9 E66.9 07/23/2017 07/19/2021 Chest pain 07/23/2017 07/23/2017 Hematuria 07/20/2014 12/01/2016 Arthritis of right hand 08/04/2013 07/26/19 16 Right carpal tunnel syndrome 08/04/2013 Boil of buttock 05/10/2009 07/26/2015 Epidermal inclusion cyst 05/10/2009 016 Pyoderma, unspecified 05/10/2009 07/26/2015 Contact dermatitis and other eczema, due to unspecified cause 05/10/2009 07/26/2015 Other acne 05/10/2009 07/26/2015 Cellulitis and abscess of trunk 10/24/2007 07/26/2015 INGUINAL HERNIA, UNILATERAL W/O GANGRENE/OBSTRUC TION 01/21/2007 07/26/2015 UMBILICAL HERNIA W/O GANGRENE/OBSTRUCTION 200607/26/2015 Cough 02/19/2006 07/26/2015 Calculus of kidney 07/26/2015 documented as of this encounter (statuses as of 08/25/2021) [facility] Narrative* Problem Noted Date Resolved Date On tube feeding diet 08/14/2020 01/13/2021 Overview: History: 65 year old male s/p [facility] esophagectomy, Pyloromyotomy, Jejunostomy tube placement for esophageal adenocarcinoma -Diet: Isosource 1.5 to 50 cc hour with 100 cc water flushes 8 times per day and Bene protein 3 times per day Removed 11/17/2020 Obesity, Class I, BMI 30-34.9 05/17/2020 Obesity, Class II, BMI 35-39.9 E66.9 07/23/2017 07/19/2021 Chest pain 07/23/2017 07/23/2017 Hematuria 07/20/2014 12/01/2016 Arthritis of right hand 08/04/2013 07/26/19 16 Right carpal tunnel syndrome 08/04/2013 Boil of buttock 05/10/2009 07/26/2015 Epidermal inclusion cyst 05/10/2009 016 Pyoderma, unspecified 05/10/2009 07/26/2015 Contact dermatitis and other eczema, due to unspecified cause 05/10/2009 07/26/2015 Other acne 05/10/2009 07/26/2015 Cellulitis and abscess of trunk 10/24/2007 07/26/2015 INGUINAL HERNIA, UNILATERAL W/O GANGRENE/OBSTRUC TION 01/21/2007 07/26/2015 UMBILICAL HERNIA W/O GANGRENE/OBSTRUCTION 200607/26/2015 Cough 02/19/2006 07/26/2015 Calculus of kidney 07/26/2015 documented as of this encounter (statuses as of 09/07/2021) [facility]21 History of Past illness Narrative* Problem Noted Date Resolved Date On tube feeding diet 08/14/2020 01/13/2021 Overview: History: 65 year old male s/p [employer] Roger esophagectomy, Pyloromyotomy, Jejunostomy tube placement for esophageal adenocarcinoma -Diet: Isosource 1.5 to 50 cc hour with 100 cc water flushes 8 times per day and Bene protein 3 times per day Removed 11/17/2020 Obesity, Class I, BMI 30-34.9 05/17/2020 Obesity, Class II, BMI 35-39.9 E66.9 07/23/2017 07/19/2021 Chest pain 07/23/2017 07/23/2017 Hematuria 07/20/2014 12/01/2016 Arthritis of right hand 08/04/2013 07/26/19 16 Right carpal tunnel syndrome 08/04/2013 Boil of buttock 05/10/2009 07/26/2015 Epidermal inclusion cyst 05/10/2009 016 Pyoderma, unspecified 05/10/2009 07/26/2015 Contact dermatitis and other eczema, due to unspecified cause 05/10/2009 07/26/2015 Other acne 05/10/2009 07/26/2015 Cellulitis and abscess of trunk 10/24/2007 07/26/2015 INGUINAL HERNIA, UNILATERAL W/O GANGRENE/OBSTRUC TION 01/21/2007 07/26/2015 UMBILICAL HERNIA W/O GANGRENE/OBSTRUCTION 200607/26/2015 Cough 02/19/2006 07/26/2015 Calculus of kidney 07/26/2015 documented as of this encounter (statuses as of 09/08/2021) [facility]21 History of Past illness Narrative* Problem Noted Date Resolved Date On tube feeding diet 08/14/2020 01/13/2021 Overview: History: 65 year old male s/p [place] esophagectomy, Pyloromyotomy, Jejunostomy tube placement for esophageal adenocarcinoma -Diet: Isosource 1.5 to 50 cc hour with 100 cc water flushes 8 times per day and Bene protein 3 times per day Removed 11/17/2020 Obesity, Class I, BMI 30-34.9 05/17/2020 Obesity, Class II, BMI 35-39.9 E66.9 07/23/2017 07/19/2021 Chest pain 07/23/2017 07/23/2017 Hematuria 07/20/2014 12/01/2016 Arthritis of right hand 08/04/2013 07/26/19 16 Right carpal tunnel syndrome 08/04/2013 Boil of buttock 05/10/2009 07/26/2015 Epidermal inclusion cyst 05/10/2009 016 Pyoderma, unspecified 05/10/2009 07/26/2015 Contact dermatitis and other eczema, due to unspecified cause 05/10/2009 07/26/2015 Other acne 05/10/2009 07/26/2015 Cellulitis and abscess of trunk 10/24/2007 07/26/2015 INGUINAL HERNIA, UNILATERAL W/O GANGRENE/OBSTRUC TION 01/21/2007 07/26/2015 UMBILICAL HERNIA W/O GANGRENE/OBSTRUCTION 200607/26/2015 Cough 02/19/2006 07/26/2015 Calculus of kidney 07/26/2015 documented as of this encounter (statuses as of 09/08/2021) [facility] History of Past illness Narrative* Problem Noted Date Resolved Date On tube feeding diet 08/14/2020 01/13/2021 Overview: History: 65 year old male s/p [place] esophagectomy, Pyloromyotomy, Jejunostomy tube placement for esophageal adenocarcinoma -Diet: Isosource 1.5 to 50 cc hour with 100 cc water flushes 8 times per day and Bene protein 3 times per day Removed 11/17/2020 Obesity, Class I, BMI 30-34.9 05/17/2020 Obesity, Class II, BMI 35-39.9 E66.9 07/23/2017 07/19/2021 Chest pain 07/23/2017 07/23/2017 Hematuria 07/20/2014 12/01/2016 Arthritis of right hand 08/04/2013 07/26/19 16 Right carpal tunnel syndrome 08/04/2013 Boil of buttock 05/10/2009 07/26/2015 Epidermal inclusion cyst 05/10/2009 016 Pyoderma, unspecified 05/10/2009 07/26/2015 Contact dermatitis and other eczema, due to unspecified cause 05/10/2009 07/26/2015 Other acne 05/10/2009 07/26/2015 Cellulitis and abscess of trunk 10/24/2007 07/26/2015 INGUINAL HERNIA, UNILATERAL W/O GANGRENE/OBSTRUC TION 01/21/2007 07/26/2015 UMBILICAL HERNIA W/O GANGRENE/OBSTRUCTION 200607/26/2015 Cough 02/19/2006 07/26/2015 Calculus of kidney 07/26/2015 documented as of this encounter (statuses as of 09/09/2021) [facility] History of Past illness Narrative* Problem Noted Date Resolved Date On tube feeding diet 08/14/2020 01/13/2021 Overview: History: 65 year old male s/p [place] esophagectomy, Pyloromyotomy, Jejunostomy tube placement for esophageal adenocarcinoma -Diet: Isosource 1.5 to 50 cc hour with 100 cc water flushes 8 times per day and Bene protein 3 times per day Removed 11/17/2020 Obesity, Class I, BMI 30-34.9 05/17/2020 Obesity, Class II, BMI 35-39.9 E66.9 07/23/2017 07/19/2021 Chest pain 07/23/2017 07/23/2017 Hematuria 07/20/2014 12/01/2016 Arthritis of right hand 08/04/2013 07/26/19 16 Right carpal tunnel syndrome 08/04/2013 Boil of buttock 05/10/2009 07/26/2015 Epidermal inclusion cyst 05/10/2009 016 Pyoderma, unspecified 05/10/2009 07/26/2015 Contact dermatitis and other eczema, due to unspecified cause 05/10/2009 07/26/2015 Other acne 05/10/2009 07/26/2015 Cellulitis and abscess of trunk 10/24/2007 07/26/2015 INGUINAL HERNIA, UNILATERAL W/O GANGRENE/OBSTRUC TION 01/21/2007 07/26/2015 UMBILICAL HERNIA W/O GANGRENE/OBSTRUCTION 200607/26/2015 Cough 02/19/2006 07/26/2015 Calculus of kidney 07/26/2015 documented as of this encounter (statuses as of 09/30/2021) [facility] History of Past illness Narrative* Problem Noted Date Resolved Date On tube feeding diet 08/14/2020 01/13/2021 Overview: History: 65 year old male s/p [place] esophagectomy, Pyloromyotomy, Jejunostomy tube placement for esophageal adenocarcinoma -Diet: Isosource 1.5 to 50 cc hour with 100 cc water flushes 8 times per day and Bene protein 3 times per day Removed 11/17/2020 Obesity, Class I, BMI 30-34.9 05/17/2020 Obesity, Class II, BMI 35-39.9 E66.9 07/23/2017 07/19/2021 Chest pain 07/23/2017 07/23/2017 Hematuria 07/20/2014 12/01/2016 Arthritis of right hand 08/04/2013 07/26/19 16 Right carpal tunnel syndrome 08/04/2013 Boil of buttock 05/10/2009 07/26/2015 Epidermal inclusion cyst 05/10/2009 016 Pyoderma, unspecified 05/10/2009 07/26/2015 Contact dermatitis and other eczema, due to unspecified cause 05/10/2009 07/26/2015 Other acne 05/10/2009 07/26/2015 Cellulitis and abscess of trunk 10/24/2007 07/26/2015 INGUINAL HERNIA, UNILATERAL W/O GANGRENE/OBSTRUC TION 01/21/2007 07/26/2015 UMBILICAL HERNIA W/O GANGRENE/OBSTRUCTION 200607/26/2015 Cough 02/19/2006 07/26/2015 Calculus of kidney 07/26/2015 documented as of this encounter (statuses as of 10/04/2021) [facility] History of Past illness Narrative* Problem Noted Date Resolved Date On tube feeding diet 08/14/2020 01/13/2021 Overview: History: 65 year old male s/p [employer] [employer] esophagectomy, Pyloromyotomy, Jejunostomy tube placement for esophageal adenocarcinoma -Diet: Isosource 1.5 to 50 cc hour with 100 cc water flushes 8 times per day and Bene protein 3 times per day Removed 11/17/2020 Obesity, Class I, BMI 30-34.9 05/17/2020 Obesity, Class II, BMI 35-39.9 E66.9 07/23/2017 07/19/2021 Chest pain 07/23/2017 07/23/2017 Hematuria 07/20/2014 12/01/2016 Arthritis of right hand 08/04/2013 07/26/19 16 Right carpal tunnel syndrome 08/04/2013 Boil of buttock 05/10/2009 07/26/2015 Epidermal inclusion cyst 05/10/2009 016 Pyoderma, unspecified 05/10/2009 07/26/2015 Contact dermatitis and other eczema, due to unspecified cause 05/10/2009 07/26/2015 Other acne 05/10/2009 07/26/2015 Cellulitis and abscess of trunk 10/24/2007 07/26/2015 INGUINAL HERNIA, UNILATERAL W/O GANGRENE/OBSTRUC TION 01/21/2007 07/26/2015 UMBILICAL HERNIA W/O GANGRENE/OBSTRUCTION 200607/26/2015 Cough 02/19/2006 07/26/2015 Calculus of kidney 07/26/2015 documented as of this encounter (statuses as of 10/05/2021) [facility] History of Past illness Narrative* Problem Noted Date Resolved Date On tube feeding diet 08/14/2020 01/13/2021 Overview: History: 65 year old male s/p [employer] esophagectomy, Pyloromyotomy, Jejunostomy tube placement for esophageal adenocarcinoma -Diet: Isosource 1.5 to 50 cc hour with 100 cc water flushes 8 times per day and Bene protein 3 times per day Removed 11/17/2020 Obesity, Class I, BMI 30-34.9 05/17/2020 Obesity, Class II, BMI 35-39.9 E66.9 07/23/2017 07/19/2021 Chest pain 07/23/2017 07/23/2017 Hematuria 07/20/2014 12/01/2016 Arthritis of right hand 08/04/2013 07/26/19 16 Right carpal tunnel syndrome 08/04/2013 Boil of buttock 05/10/2009 07/26/2015 Epidermal inclusion cyst 05/10/2009 016 Pyoderma, unspecified 05/10/2009 07/26/2015 Contact dermatitis and other eczema, due to unspecified cause 05/10/2009 07/26/2015 Other acne 05/10/2009 07/26/2015 Cellulitis and abscess of trunk 10/24/2007 07/26/2015 INGUINAL HERNIA, UNILATERAL W/O GANGRENE/OBSTRUC TION 01/21/2007 07/26/2015 UMBILICAL HERNIA W/O GANGRENE/OBSTRUCTION 200607/26/2015 Cough 02/19/2006 07/26/2015 Calculus of kidney 07/26/2015 documented as of this encounter (statuses as of 10/20/2021) [facility] History of Past illness Narrative* Problem Noted Date Resolved Date On tube feeding diet 08/14/2020 01/13/2021 Overview: History: 65 year old male s/p [employer] esophagectomy, Pyloromyotomy, Jejunostomy tube placement for esophageal adenocarcinoma -Diet: Isosource 1.5 to 50 cc hour with 100 cc water flushes 8 times per day and Bene protein 3 times per day Removed 11/17/2020 Obesity, Class I, BMI 30-34.9 05/17/2020 Obesity, Class II, BMI 35-39.9 E66.9 07/23/2017 07/19/2021 Chest pain 07/23/2017 07/23/2017 Hematuria 07/20/2014 12/01/2016 Arthritis of right hand 08/04/2013 07/26/19 16 Right carpal tunnel syndrome 08/04/2013 Boil of buttock 05/10/2009 07/26/2015 Epidermal inclusion cyst 05/10/2009 016 Pyoderma, unspecified 05/10/2009 07/26/2015 Contact dermatitis and other eczema, due to unspecified cause 05/10/2009 07/26/2015 Other acne 05/10/2009 07/26/2015 Cellulitis and abscess of trunk 10/24/2007 07/26/2015 INGUINAL HERNIA, UNILATERAL W/O GANGRENE/OBSTRUC TION 01/21/2007 07/26/2015 UMBILICAL HERNIA W/O GANGRENE/OBSTRUCTION 200607/26/2015 Cough 02/19/2006 07/26/2015 Calculus of kidney 07/26/2015 documented as of this encounter (statuses as of 11/02/2021) [facility] History of Past illness Narrative* Problem Noted Date Resolved Date On tube feeding diet 08/14/2020 01/13/2021 Overview: History: 65 year old male s/p [place] esophagectomy, Pyloromyotomy, Jejunostomy tube placement for esophageal adenocarcinoma -Diet: Isosource 1.5 to 50 cc hour with 100 cc water flushes 8 times per day and Bene protein 3 times per day Removed 11/17/2020 Obesity, Class I, BMI 30-34.9 05/17/2020 Obesity, Class II, BMI 35-39.9 E66.9 07/23/2017 07/19/2021 Chest pain 07/23/2017 07/23/2017 Hematuria 07/20/2014 12/01/2016 Arthritis of right hand 08/04/2013 07/26/19 16 Right carpal tunnel syndrome 08/04/2013 Boil of buttock 05/10/2009 07/26/2015 Epidermal inclusion cyst 05/10/2009 016 Pyoderma, unspecified 05/10/2009 07/26/2015 Contact dermatitis and other eczema, due to unspecified cause 05/10/2009 07/26/2015 Other acne 05/10/2009 07/26/2015 Cellulitis and abscess of trunk 10/24/2007 07/26/2015 INGUINAL HERNIA, UNILATERAL W/O GANGRENE/OBSTRUC TION 01/21/2007 07/26/2015 UMBILICAL HERNIA W/O GANGRENE/OBSTRUCTION 200607/26/2015 Cough 02/19/2006 07/26/2015 Calculus of kidney 07/26/2015 documented as of this encounter (statuses as of 11/02/2021) [facility] History of Past illness Narrative* Problem Noted Date Resolved Date On tube feeding diet 08/14/2020 01/13/2021 Overview: History: 65 year old male s/p [place] esophagectomy, Pyloromyotomy, Jejunostomy tube placement for esophageal adenocarcinoma -Diet: Isosource 1.5 to 50 cc hour with 100 cc water flushes 8 times per day and Bene protein 3 times per day Removed 11/17/2020 Obesity, Class I, BMI 30-34.9 05/17/2020 Obesity, Class II, BMI 35-39.9 E66.9 07/23/2017 07/19/2021 Chest pain 07/23/2017 07/23/2017 Hematuria 07/20/2014 12/01/2016 Arthritis of right hand 08/04/2013 07/26/19 16 Right carpal tunnel syndrome 08/04/2013 Boil of buttock 05/10/2009 07/26/2015 Epidermal inclusion cyst 05/10/2009 016 Pyoderma, unspecified 05/10/2009 07/26/2015 Contact dermatitis and other eczema, due to unspecified cause 05/10/2009 07/26/2015 Other acne 05/10/2009 07/26/2015 Cellulitis and abscess of trunk 10/24/2007 07/26/2015 INGUINAL HERNIA, UNILATERAL W/O GANGRENE/OBSTRUC TION 01/21/2007 07/26/2015 UMBILICAL HERNIA W/O GANGRENE/OBSTRUCTION 200607/26/2015 Cough 02/19/2006 07/26/2015 Calculus of kidney 07/26/2015 documented as of this encounter (statuses as of 11/09/2021) [facility] History of Past illness Narrative* Problem Noted Date Resolved Date On tube feeding diet 08/14/2020 01/13/2021 Overview: History: 65 year old male s/p [place] esophagectomy, Pyloromyotomy, Jejunostomy tube placement for esophageal adenocarcinoma -Diet: Isosource 1.5 to 50 cc hour with 100 cc water flushes 8 times per day and Bene protein 3 times per day Removed 11/17/2020 Obesity, Class I, BMI 30-34.9 05/17/2020 Obesity, Class II, BMI 35-39.9 E66.9 07/23/2017 07/19/2021 Chest pain 07/23/2017 07/23/2017 Hematuria 07/20/2014 12/01/2016 Arthritis of right hand 08/04/2013 07/26/19 Right carpal tunnel syndrome 08/04/2013 Boil of buttock 05/10/2009 07/26/2015 Epidermal inclusion cyst 05/10/2009 016 Pyoderma, unspecified 05/10/2009 07/26/2015 Contact dermatitis and other eczema, due to unspecified cause 05/10/2009 07/26/2015 Other acne 05/10/2009 07/26/2015 Cellulitis and abscess of trunk 10/24/2007 07/26/2015 INGUINAL HERNIA, UNILATERAL W/O GANGRENE/OBSTRUC TION 01/21/2007 07/26/2015 UMBILICAL HERNIA W/O GANGRENE/OBSTRUCTION 200607/26/2015 Cough 02/19/2006 07/26/2015 Calculus of kidney 07/26/2015 documented as of this encounter (statuses as of 11/10/2021) [facility] History of Past illness Narrative* Problem Noted Date Resolved Date On tube feeding diet 08/14/2020 01/13/2021 Overview: History: 65 year old male s/p [place] esophagectomy, Pyloromyotomy, Jejunostomy tube placement for esophageal adenocarcinoma -Diet: Isosource 1.5 to 50 cc hour with 100 cc water flushes 8 times per day and Bene protein 3 times per day Removed 11/17/2020 Obesity, Class I, BMI 30-34.9 05/17/2020 Obesity, Class II, BMI 35-39.9 E66.9 07/23/2017 07/19/2021 Chest pain 07/23/2017 07/23/2017 Hematuria 07/20/2014 12/01/2016 Arthritis of right hand 08/04/2013 07/26/19 16 Right carpal tunnel syndrome 08/04/2013 Boil of buttock 05/10/2009 07/26/2015 Epidermal inclusion cyst 05/10/2009 016 Pyoderma, unspecified 05/10/2009 07/26/2015 Contact dermatitis and other eczema, due to unspecified cause 05/10/2009 07/26/2015 Other acne 05/10/2009 07/26/2015 Cellulitis and abscess of trunk 10/24/2007 07/26/2015 INGUINAL HERNIA, UNILATERAL W/O GANGRENE/OBSTRUC TION 01/21/2007 07/26/2015 UMBILICAL HERNIA W/O GANGRENE/OBSTRUCTION 200607/26/2015 Cough 02/19/2006 07/26/2015 Calculus of kidney 07/26/2015 documented as of this encounter (statuses as of 11/16/2021) [facility] History of Past illness Narrative* Problem Noted Date Resolved Date On tube feeding diet 08/14/2020 01/13/2021 Overview: History: 65 year old male s/p [place] esophagectomy, Pyloromyotomy, Jejunostomy tube placement for esophageal adenocarcinoma -Diet: Isosource 1.5 to 50 cc hour with 100 cc water flushes 8 times per day and Bene protein 3 times per day Removed 11/17/2020 Obesity, Class I, BMI 30-34.9 05/17/2020 Obesity, Class II, BMI 35-39.9 E66.9 07/23/2017 07/19/2021 Chest pain 07/23/2017 07/23/2017 Hematuria 07/20/2014 12/01/2016 Arthritis of right hand 08/04/2013 07/26/19 16 Right carpal tunnel syndrome 08/04/2013 Boil of buttock 05/10/2009 07/26/2015 Epidermal inclusion cyst 05/10/2009 016 Pyoderma, unspecified 05/10/2009 07/26/2015 Contact dermatitis and other eczema, due to unspecified cause 05/10/2009 07/26/2015 Other acne 05/10/2009 07/26/2015 Cellulitis and abscess of trunk 10/24/2007 07/26/2015 INGUINAL HERNIA, UNILATERAL W/O GANGRENE/OBSTRUC TION 01/21/2007 07/26/2015 UMBILICAL HERNIA W/O GANGRENE/OBSTRUCTION 200607/26/2015 Cough 02/19/2006 07/26/2015 Calculus of kidney 07/26/2015 documented as of this encounter (statuses as of 12/02/2021) [facility] History of Past illness Narrative* Problem Noted Date Resolved Date On tube feeding diet 08/14/2020 01/13/2021 Overview: History: 65 year old male s/p [place] esophagectomy, Pyloromyotomy, Jejunostomy tube placement for esophageal adenocarcinoma -Diet: Isosource 1.5 to 50 cc hour with 100 cc water flushes 8 times per day and Bene protein 3 times per day Removed 11/17/2020 Obesity, Class I, BMI 30-34.9 05/17/2020 Obesity, Class II, BMI 35-39.9 E66.9 07/23/2017 07/19/2021 Chest pain 07/23/2017 07/23/2017 Hematuria 07/20/2014 12/01/2016 Arthritis of right hand 08/04/2013 07/26/19 16 Right carpal tunnel syndrome 08/04/2013 Boil of buttock 05/10/2009 07/26/2015 Epidermal inclusion cyst 05/10/2009 016 Pyoderma, unspecified 05/10/2009 07/26/2015 Contact dermatitis and other eczema, due to unspecified cause 05/10/2009 07/26/2015 Other acne 05/10/2009 07/26/2015 Cellulitis and abscess of trunk 10/24/2007 07/26/2015 INGUINAL HERNIA, UNILATERAL W/O GANGRENE/OBSTRUC TION 01/21/2007 07/26/2015 UMBILICAL HERNIA W/O GANGRENE/OBSTRUCTION 200607/26/2015 Cough 02/19/2006 07/26/2015 Calculus of kidney 07/26/2015 documented as of this encounter (statuses as of 02/09/2022) [facility] History of Past illness Narrative* Problem Noted Date Resolved Date On tube feeding diet 08/14/2020 01/13/2021 Overview: History: 65 year old male s/p [place] esophagectomy, Pyloromyotomy, Jejunostomy tube placement for esophageal adenocarcinoma -Diet: Isosource 1.5 to 50 cc hour with 100 cc water flushes 8 times per day and Bene protein 3 times per day Removed 11/17/2020 Obesity, Class I, BMI 30-34.9 05/17/2020 Obesity, Class II, BMI 35-39.9 E66.9 07/23/2017 07/19/2021 Chest pain 07/23/2017 07/23/2017 Hematuria 07/20/2014 12/01/2016 Arthritis of right hand 08/04/2013 07/26/19 16 Right carpal tunnel syndrome 08/04/2013 Boil of buttock 05/10/2009 07/26/2015 Epidermal inclusion cyst 05/10/2009 016 Pyoderma, unspecified 05/10/2009 07/26/2015 Contact dermatitis and other eczema, due to unspecified cause 05/10/2009 07/26/2015 Other acne 05/10/2009 07/26/2015 Cellulitis and abscess of trunk 10/24/2007 07/26/2015 INGUINAL HERNIA, UNILATERAL W/O GANGRENE/OBSTRUC TION 01/21/2007 07/26/2015 UMBILICAL HERNIA W/O GANGRENE/OBSTRUCTION 200607/26/2015 Cough 02/19/2006 07/26/2015 Calculus of kidney 07/26/2015 documented as of this encounter (statuses as of 02/22/2022) [facility] History of Past illness Narrative* Problem Noted Date Resolved Date On tube feeding diet 08/14/2020 01/13/2021 Overview: History: 65 year old male s/p [place] esophagectomy, Pyloromyotomy, Jejunostomy tube placement for esophageal adenocarcinoma -Diet: Isosource 1.5 to 50 cc hour with 100 cc water flushes 8 times per day and Bene protein 3 times per day Removed 11/17/2020 Obesity, Class I, BMI 30-34.9 05/17/2020 Obesity, Class II, BMI 35-39.9 E66.9 07/23/2017 07/19/2021 Chest pain 07/23/2017 07/23/2017 Hematuria 07/20/2014 12/01/2016 Arthritis of right hand 08/04/2013 07/26/19 16 Right carpal tunnel syndrome 08/04/2013 Boil of buttock 05/10/2009 07/26/2015 Epidermal inclusion cyst 05/10/2009 016 Pyoderma, unspecified 05/10/2009 07/26/2015 Contact dermatitis and other eczema, due to unspecified cause 05/10/2009 07/26/2015 Other acne 05/10/2009 07/26/2015 Cellulitis and abscess of trunk 10/24/2007 07/26/2015 INGUINAL HERNIA, UNILATERAL W/O GANGRENE/OBSTRUC TION 01/21/2007 07/26/2015 UMBILICAL HERNIA W/O GANGRENE/OBSTRUCTION 200607/26/2015 Cough 02/19/2006 07/26/2015 Calculus of kidney 07/26/2015 documented as of this encounter (statuses as of 02/24/2022) [facility] History of Past illness Narrative* Problem Noted Date Resolved Date On tube feeding diet 08/14/2020 01/13/2021 Overview: History: 65 year old male s/p [place] esophagectomy, Pyloromyotomy, Jejunostomy tube placement for esophageal adenocarcinoma -Diet: Isosource 1.5 to 50 cc hour with 100 cc water flushes 8 times per day and Bene protein 3 times per day Removed 11/17/2020 Obesity, Class I, BMI 30-34.9 05/17/2020 Obesity, Class II, BMI 35-39.9 E66.9 07/23/2017 07/19/2021 Chest pain 07/23/2017 07/23/2017 Hematuria 07/20/2014 12/01/2016 Arthritis of right hand 08/04/2013 07/26/19 16 Right carpal tunnel syndrome 08/04/2013 Boil of buttock 05/10/2009 07/26/2015 Epidermal inclusion cyst 05/10/2009 016 Pyoderma, unspecified 05/10/2009 07/26/2015 Contact dermatitis and other eczema, due to unspecified cause 05/10/2009 07/26/2015 Other acne 05/10/2009 07/26/2015 Cellulitis and abscess of trunk 10/24/2007 07/26/2015 INGUINAL HERNIA, UNILATERAL W/O GANGRENE/OBSTRUC TION 01/21/2007 07/26/2015 UMBILICAL HERNIA W/O GANGRENE/OBSTRUCTION 200607/26/2015 Cough 02/19/2006 07/26/2015 Calculus of kidney 07/26/2015 documented as of this encounter (statuses as of 03/17/2022) [facility] History of Past illness Narrative* Problem Noted Date Resolved Date On tube feeding diet 08/14/2020 01/13/2021 Overview: History: 65 year old male s/p [place] esophagectomy, Pyloromyotomy, Jejunostomy tube placement for esophageal adenocarcinoma -Diet: Isosource 1.5 to 50 cc hour with 100 cc water flushes 8 times per day and Bene protein 3 times per day Removed 11/17/2020 Obesity, Class I, BMI 30-34.9 05/17/2020 Obesity, Class II, BMI 35-39.9 E66.9 07/23/2017 07/19/2021 Chest pain 07/23/2017 07/23/2017 Hematuria 07/20/2014 12/01/2016 Arthritis of right hand 08/04/2013 07/26/19 16 Right carpal tunnel syndrome 08/04/2013 Boil of buttock 05/10/2009 07/26/2015 Epidermal inclusion cyst 05/10/2009 016 Pyoderma, unspecified 05/10/2009 07/26/2015 Contact dermatitis and other eczema, due to unspecified cause 05/10/2009 07/26/2015 Other acne 05/10/2009 07/26/2015 Cellulitis and abscess of trunk 10/24/2007 07/26/2015 INGUINAL HERNIA, UNILATERAL W/O GANGRENE/OBSTRUC TION 01/21/2007 07/26/2015 UMBILICAL HERNIA W/O GANGRENE/OBSTRUCTION 200607/26/2015 Cough 02/19/2006 07/26/2015 Calculus of kidney 07/26/2015 documented as of this encounter (statuses as of 03/18/2022) [facility] History of Past illness Narrative* Problem Noted Date Resolved Date On tube feeding diet 08/14/2020 01/13/2021 Overview: History: 65 year old male s/p [employer] esophagectomy, Pyloromyotomy, Jejunostomy tube placement for esophageal adenocarcinoma -Diet: Isosource 1.5 to 50 cc hour with 100 cc water flushes 8 times per day and Bene protein 3 times per day Removed 11/17/2020 Obesity, Class I, BMI 30-34.9 05/17/2020 Obesity, Class II, BMI 35-39.9 E66.9 07/23/2017 07/19/2021 Chest pain 07/23/2017 07/23/2017 Hematuria 07/20/2014 12/01/2016 Arthritis of right hand 08/04/2013 07/26/19 16 Right carpal tunnel syndrome 08/04/2013 Boil of buttock 05/10/2009 07/26/2015 Epidermal inclusion cyst 05/10/2009 016 Pyoderma, unspecified 05/10/2009 07/26/2015 Contact dermatitis and other eczema, due to unspecified cause 05/10/2009 07/26/2015 Other acne 05/10/2009 07/26/2015 Cellulitis and abscess of trunk 10/24/2007 07/26/2015 INGUINAL HERNIA, UNILATERAL W/O GANGRENE/OBSTRUC TION 01/21/2007 07/26/2015 UMBILICAL HERNIA W/O GANGRENE/OBSTRUCTION 200607/26/2015 Cough 02/19/2006 07/26/2015 Calculus of kidney 07/26/2015 documented as of this encounter (statuses as of 03/20/2022) [facility]05-08-2021 History of Past illness Narrative* Problem Noted Date Resolved Date On tube feeding diet 08/14/2020 01/13/2021 Overview: History: 65 year old male s/p [place] esophagectomy, Pyloromyotomy, Jejunostomy tube placement for esophageal adenocarcinoma -Diet: Isosource 1.5 to 50 cc hour with 100 cc water flushes 8 times per day and Bene protein 3 times per day Removed 11/17/2020 Obesity, Class I, BMI 30-34.9 05/17/2020 Obesity, Class II, BMI 35-39.9 E66.9 07/23/2017 07/19/2021 Chest pain 07/23/2017 07/23/2017 Hematuria 07/20/2014 12/01/2016 Arthritis of right hand 08/04/2013 07/26/19 Right carpal tunnel syndrome 08/04/2013 Boil of buttock 05/10/2009 07/26/2015 Epidermal inclusion cyst 05/10/2009 016 Pyoderma, unspecified 05/10/2009 07/26/2015 Contact dermatitis and other eczema, due to unspecified cause 05/10/2009 07/26/2015 Other acne 05/10/2009 07/26/2015 Cellulitis and abscess of trunk 10/24/2007 07/26/2015 INGUINAL HERNIA, UNILATERAL W/O GANGRENE/OBSTRUC TION 01/21/2007 07/26/2015 UMBILICAL HERNIA W/O GANGRENE/OBSTRUCTION 200607/26/2015 Cough 02/19/2006 07/26/2015 Calculus of kidney 07/26/2015 documented as of this encounter (statuses as of 04/21/2022) [facility]2021 History of Past illness Narrative* Problem Noted Date Resolved Date On tube feeding diet 08/14/2020 01/13/2021 Overview: History: 65 year old male s/p [place] esophagectomy, Pyloromyotomy, Jejunostomy tube placement for esophageal adenocarcinoma -Diet: Isosource 1.5 to 50 cc hour with 100 cc water flushes 8 times per day and Bene protein 3 times per day Removed 11/17/2020 Obesity, Class I, BMI 30-34.9 05/17/2020 Obesity, Class II, BMI 35-39.9 E66.9 07/23/2017 07/19/2021 Chest pain 07/23/2017 07/23/2017 Hematuria 07/20/2014 12/01/2016 Arthritis of right hand 08/04/2013 07/26/19 16 Right carpal tunnel syndrome 08/04/2013 Boil of buttock 05/10/2009 07/26/2015 Epidermal inclusion cyst 05/10/2009 016 Pyoderma, unspecified 05/10/2009 07/26/2015 Contact dermatitis and other eczema, due to unspecified cause 05/10/2009 07/26/2015 Other acne 05/10/2009 07/26/2015 Cellulitis and abscess of trunk 10/24/2007 07/26/2015 INGUINAL HERNIA, UNILATERAL W/O GANGRENE/OBSTRUC TION 01/21/2007 07/26/2015 UMBILICAL HERNIA W/O GANGRENE/OBSTRUCTION 200607/26/2015 Cough 02/19/2006 07/26/2015 Calculus of kidney 07/26/2015 documented as of this encounter (statuses as of 05/25/2022) [facility] History of Past illness Narrative* Problem Noted Date Resolved Date On tube feeding diet 08/14/2020 01/13/2021 Overview: History: 65 year old male s/p [place] esophagectomy, Pyloromyotomy, Jejunostomy tube placement for esophageal adenocarcinoma -Diet: Isosource 1.5 to 50 cc hour with 100 cc water flushes 8 times per day and Bene protein 3 times per day Removed 11/17/2020 Obesity, Class I, BMI 30-34.9 05/17/2020 Obesity, Class II, BMI 35-39.9 E66.9 07/23/2017 07/19/2021 Chest pain 07/23/2017 07/23/2017 Hematuria 07/20/2014 12/01/2016 Arthritis of right hand 08/04/2013 07/26/19 16 Right carpal tunnel syndrome 08/04/2013 Boil of buttock 05/10/2009 07/26/2015 Epidermal inclusion cyst 05/10/2009 016 Pyoderma, unspecified 05/10/2009 07/26/2015 Contact dermatitis and other eczema, due to unspecified cause 05/10/2009 07/26/2015 Other acne 05/10/2009 07/26/2015 Cellulitis and abscess of trunk 10/24/2007 07/26/2015 INGUINAL HERNIA, UNILATERAL W/O GANGRENE/OBSTRUC TION 01/21/2007 07/26/2015 UMBILICAL HERNIA W/O GANGRENE/OBSTRUCTION 200607/26/2015 Cough 02/19/2006 07/26/2015 Calculus of kidney 07/26/2015 documented as of this encounter (statuses as of 05/29/2022) [facility]21 History of Past illness Narrative* Problem Noted Date Resolved Date On tube feeding diet 08/14/2020 01/13/2021 Overview: History: 65 year old male s/p [place] esophagectomy, Pyloromyotomy, Jejunostomy tube placement for esophageal adenocarcinoma -Diet: Isosource 1.5 to 50 cc hour with 100 cc water flushes 8 times per day and Bene protein 3 times per day Removed 11/17/2020 Obesity, Class I, BMI 30-34.9 05/17/2020 Obesity, Class II, BMI 35-39.9 E66.9 07/23/2017 07/19/2021 Chest pain 07/23/2017 07/23/2017 Hematuria 07/20/2014 12/01/2016 Arthritis of right hand 08/04/2013 07/26/19 16 Right carpal tunnel syndrome 08/04/2013 Boil of buttock 05/10/2009 07/26/2015 Epidermal inclusion cyst 05/10/2009 016 Pyoderma, unspecified 05/10/2009 07/26/2015 Contact dermatitis and other eczema, due to unspecified cause 05/10/2009 07/26/2015 Other acne 05/10/2009 07/26/2015 Cellulitis and abscess of trunk 10/24/2007 07/26/2015 INGUINAL HERNIA, UNILATERAL W/O GANGRENE/OBSTRUC TION 01/21/2007 07/26/2015 UMBILICAL HERNIA W/O GANGRENE/OBSTRUCTION 200607/26/2015 Cough 02/19/2006 07/26/2015 Calculus of kidney 07/26/2015 documented as of this encounter (statuses as of 06/09/2022) [facility] History of Past illness Narrative* Problem Noted Date Resolved Date On tube feeding diet 08/14/2020 01/13/2021 Overview: History: 65 year old male s/p [place] [place] esophagectomy, Pyloromyotomy, Jejunostomy tube placement for esophageal adenocarcinoma -Diet: Isosource 1.5 to 50 cc hour with 100 cc water flushes 8 times per day and Bene protein 3 times per day Removed 11/17/2020 Obesity, Class I, BMI 30-34.9 05/17/2020 Obesity, Class II, BMI 35-39.9 E66.9 07/23/2017 07/19/2021 Chest pain 07/23/2017 07/23/2017 Hematuria 07/20/2014 12/01/2016 Arthritis of right hand 08/04/2013 07/26/19 16 Right carpal tunnel syndrome 08/04/2013 Boil of buttock 05/10/2009 07/26/2015 Epidermal inclusion cyst 05/10/2009 016 Pyoderma, unspecified 05/10/2009 07/26/2015 Contact dermatitis and other eczema, due to unspecified cause 05/10/2009 07/26/2015 Other acne 05/10/2009 07/26/2015 Cellulitis and abscess of trunk 10/24/2007 07/26/2015 INGUINAL HERNIA, UNILATERAL W/O GANGRENE/OBSTRUC TION 01/21/2007 07/26/2015 UMBILICAL HERNIA W/O GANGRENE/OBSTRUCTION 200607/26/2015 Cough 02/19/2006 07/26/2015 Calculus of kidney 07/26/2015 documented as of this encounter (statuses as of 06/16/2022) [facility]21 History of Past illness Narrative* Problem Noted Date Resolved Date On tube feeding diet 08/14/2020 01/13/2021 Overview: History: 65 year old male s/p [place] esophagectomy, Pyloromyotomy, Jejunostomy tube placement for esophageal adenocarcinoma -Diet: Isosource 1.5 to 50 cc hour with 100 cc water flushes 8 times per day and Bene protein 3 times per day Removed 11/17/2020 Obesity, Class I, BMI 30-34.9 05/17/2020 Obesity, Class II, BMI 35-39.9 E66.9 07/23/2017 07/19/2021 Chest pain 07/23/2017 07/23/2017 Hematuria 07/20/2014 12/01/2016 Arthritis of right hand 08/04/2013 07/26/19 Right carpal tunnel syndrome 08/04/2013 Boil of buttock 05/10/2009 07/26/2015 Epidermal inclusion cyst 05/10/2009 016 Pyoderma, unspecified 05/10/2009 07/26/2015 Contact dermatitis and other eczema, due to unspecified cause 05/10/2009 07/26/2015 Other acne 05/10/2009 07/26/2015 Cellulitis and abscess of trunk 10/24/2007 07/26/2015 INGUINAL HERNIA, UNILATERAL W/O GANGRENE/OBSTRUC TION 01/21/2007 07/26/2015 UMBILICAL HERNIA W/O GANGRENE/OBSTRUCTION 200607/26/2015 Cough 02/19/2006 07/26/2015 Calculus of kidney 07/26/2015 documented as of this encounter (statuses as of 06/26/2022) [facility] History of Past illness Narrative* Problem Noted Date Resolved Date On tube feeding diet 08/14/2020 01/13/2021 Overview: History: 65 year old male s/p [place] esophagectomy, Pyloromyotomy, Jejunostomy tube placement for esophageal adenocarcinoma -Diet: Isosource 1.5 to 50 cc hour with 100 cc water flushes 8 times per day and Bene protein 3 times per day Removed 11/17/2020 Obesity, Class I, BMI 30-34.9 05/17/2020 Obesity, Class II, BMI 35-39.9 E66.9 07/23/2017 07/19/2021 Chest pain 07/23/2017 07/23/2017 Hematuria 07/20/2014 12/01/2016 Arthritis of right hand 08/04/2013 07/26/19 16 Right carpal tunnel syndrome 08/04/2013 Boil of buttock 05/10/2009 07/26/2015 Epidermal inclusion cyst 05/10/2009 016 Pyoderma, unspecified 05/10/2009 07/26/2015 Contact dermatitis and other eczema, due to unspecified cause 05/10/2009 07/26/2015 Other acne 05/10/2009 07/26/2015 Cellulitis and abscess of trunk 10/24/2007 07/26/2015 INGUINAL HERNIA, UNILATERAL W/O GANGRENE/OBSTRUC TION 01/21/2007 07/26/2015 UMBILICAL HERNIA W/O GANGRENE/OBSTRUCTION 200607/26/2015 Cough 02/19/2006 07/26/2015 Calculus of kidney 07/26/2015 documented as of this encounter (statuses as of 08/02/2022) [facility]21 History of Past illness Narrative* Problem Noted Date Resolved Date On tube feeding diet 08/14/2020 01/13/2021 Overview: History: 65 year old male s/p [place] esophagectomy, Pyloromyotomy, Jejunostomy tube placement for esophageal adenocarcinoma -Diet: Isosource 1.5 to 50 cc hour with 100 cc water flushes 8 times per day and Bene protein 3 times per day Removed 11/17/2020 Obesity, Class I, BMI 30-34.9 05/17/2020 Obesity, Class II, BMI 35-39.9 E66.9 07/23/2017 07/19/2021 Chest pain 07/23/2017 07/23/2017 Hematuria 07/20/2014 12/01/2016 Arthritis of right hand 08/04/2013 07/26/19 16 Right carpal tunnel syndrome 08/04/2013 Boil of buttock 05/10/2009 07/26/2015 Epidermal inclusion cyst 05/10/2009 016 Pyoderma, unspecified 05/10/2009 07/26/2015 Contact dermatitis and other eczema, due to unspecified cause 05/10/2009 07/26/2015 Other acne 05/10/2009 07/26/2015 Cellulitis and abscess of trunk 10/24/2007 07/26/2015 INGUINAL HERNIA, UNILATERAL W/O GANGRENE/OBSTRUC TION 01/21/2007 07/26/2015 UMBILICAL HERNIA W/O GANGRENE/OBSTRUCTION 200607/26/2015 Cough 02/19/2006 07/26/2015 Calculus of kidney 07/26/2015 documented as of this encounter (statuses as of 08/03/2022) [facility] History of Past illness Narrative* Problem Noted Date Resolved Date On tube feeding diet 08/14/2020 01/13/2021 Overview: History: 65 year old male s/p [place] esophagectomy, Pyloromyotomy, Jejunostomy tube placement for esophageal adenocarcinoma -Diet: Isosource 1.5 to 50 cc hour with 100 cc water flushes 8 times per day and Bene protein 3 times per day Removed 11/17/2020 Obesity, Class I, BMI 30-34.9 05/17/2020 Obesity, Class II, BMI 35-39.9 E66.9 07/23/2017 07/19/2021 Chest pain 07/23/2017 07/23/2017 Hematuria 07/20/2014 12/01/2016 Arthritis of right hand 08/04/2013 07/26/19 16 Right carpal tunnel syndrome 08/04/2013 Boil of buttock 05/10/2009 07/26/2015 Epidermal inclusion cyst 05/10/2009 016 Pyoderma, unspecified 05/10/2009 07/26/2015 Contact dermatitis and other eczema, due to unspecified cause 05/10/2009 07/26/2015 Other acne 05/10/2009 07/26/2015 Cellulitis and abscess of trunk 10/24/2007 07/26/2015 INGUINAL HERNIA, UNILATERAL W/O GANGRENE/OBSTRUC TION 01/21/2007 07/26/2015 UMBILICAL HERNIA W/O GANGRENE/OBSTRUCTION 200607/26/2015 Cough 02/19/2006 07/26/2015 Calculus of kidney 07/26/2015 documented as of this encounter (statuses as of 08/09/2022) [facility] History of Past illness Narrative* Problem Noted Date Resolved Date On tube feeding diet 08/14/2020 01/13/2021 Overview: History: 65 year old male s/p [place] esophagectomy, Pyloromyotomy, Jejunostomy tube placement for esophageal adenocarcinoma -Diet: Isosource 1.5 to 50 cc hour with 100 cc water flushes 8 times per day and Bene protein 3 times per day Removed 11/17/2020 Obesity, Class I, BMI 30-34.9 05/17/2020 Obesity, Class II, BMI 35-39.9 E66.9 07/23/2017 07/19/2021 Chest pain 07/23/2017 07/23/2017 Hematuria 07/20/2014 12/01/2016 Arthritis of right hand 08/04/2013 07/26/19 Right carpal tunnel syndrome 08/04/2013 Boil of buttock 05/10/2009 07/26/2015 Epidermal inclusion cyst 05/10/2009 016 Pyoderma, unspecified 05/10/2009 07/26/2015 Contact dermatitis and other eczema, due to unspecified cause 05/10/2009 07/26/2015 Other acne 05/10/2009 07/26/2015 Cellulitis and abscess of trunk 10/24/2007 07/26/2015 INGUINAL HERNIA, UNILATERAL W/O GANGRENE/OBSTRUC TION 01/21/2007 07/26/2015 UMBILICAL HERNIA W/O GANGRENE/OBSTRUCTION 200607/26/2015 Cough 02/19/2006 07/26/2015 Calculus of kidney 07/26/2015 documented as of this encounter (statuses as of 08/22/2022) [facility] History of Past illness Narrative* Problem Noted Date Diagnosed Date Resolved Date On tube feeding diet 08/14/2020 021 Overview: History: 65 year old male s/p [place] esophagectomy, Pyloromyotomy, Jejunostomy tube placement for esophageal adenocarcinoma -Diet: Isosource 1.5 to 50 cc hour with 100 cc water flushes 8 times per day and Bene protein 3 times per day Removed 11/17/2020 Obesity, Class I, BMI 30-34.9 05/17/2020 07/19/2021 Obesity, Class II, BMI 35-39.9 E66.9 07/23/2017 07/19/2021 Chest pain 07/23/2017 07/23/2017 Hematuria 07/20/2014 12/01/2016 Arthritis of right hand 08/04/201307/08 Right carpal tunnel syndrome 08/04/2013 07/26/2015 Boil of buttock 05/10/2009 07/26/2015 Epidermal inclusion cyst 05/10/2009 Pyoderma, unspecified 05/10/20092015 Contact dermatitis and other eczema, due to unspecified cause 05/10/2009 07/26/2015 Other acne 05/10/2009 07/26/2015 Cellulitis and abscess of trunk 10/24/2007 07/26/2015 INGUINAL HERNIA, UNILATERAL W/O GANGRENE/OBSTRUCTION 01/21/2007 07/26/2015 UMBILICAL HERNIA W/O GANGRENE/OBSTRUCTION 01/21/2007 07/26/2015 Cough 02/19/2006 07/26/2015 Calculus of kidney 6 documented as of this encounter (statuses as of 11/23/2022) [facility] History of Past illness Narrative* Problem Noted Date Diagnosed Date Resolved Date On tube feeding diet 08/14/2020 021 Overview: History: 65 year old male s/p [place] esophagectomy, Pyloromyotomy, Jejunostomy tube placement for esophageal adenocarcinoma -Diet: Isosource 1.5 to 50 cc hour with 100 cc water flushes 8 times per day and Bene protein 3 times per day Removed 11/17/2020 Obesity, Class I, BMI 30-34.9 05/17/2020 07/19/2021 Obesity, Class II, BMI 35-39.9 E66.9 07/23/2017 07/19/2021 Chest pain 07/23/2017 07/23/2017 Hematuria 07/20/2014 12/01/2016 Arthritis of right hand 08/04/201307/08 Right carpal tunnel syndrome 08/04/2013 07/26/2015 Boil of buttock 05/10/2009 07/26/2015 Epidermal inclusion cyst 05/10/2009 Pyoderma, unspecified 05/10/20092015 Contact dermatitis and other eczema, due to unspecified cause 05/10/2009 07/26/2015 Other acne 05/10/2009 07/26/2015 Cellulitis and abscess of trunk 10/24/2007 07/26/2015 INGUINAL HERNIA, UNILATERAL W/O GANGRENE/OBSTRUCTION 01/21/2007 07/26/2015 UMBILICAL HERNIA W/O GANGRENE/OBSTRUCTION 01/21/2007 07/26/2015 Cough 02/19/2006 07/26/2015 Calculus of kidney 6 documented as of this encounter (statuses as of 02/11/2023) [facility] History of Past illness Narrative* Problem Noted Date Diagnosed Date Resolved Date On tube feeding diet 08/14/2020 021 Overview: History: 65 year old male s/p [place] esophagectomy, Pyloromyotomy, Jejunostomy tube placement for esophageal adenocarcinoma -Diet: Isosource 1.5 to 50 cc hour with 100 cc water flushes 8 times per day and Bene protein 3 times per day Removed 11/17/2020 Obesity, Class I, BMI 30-34.9 05/17/2020 07/19/2021 Obesity, Class II, BMI 35-39.9 E66.9 07/23/2017 07/19/2021 Chest pain 07/23/2017 07/23/2017 Hematuria 07/20/2014 12/01/2016 Arthritis of right hand 08/04/201307/08 Right carpal tunnel syndrome 08/04/2013 07/26/2015 Boil of buttock 05/10/2009 07/26/2015 Epidermal inclusion cyst 05/10/2009 Pyoderma, unspecified 05/10/20092015 Contact dermatitis and other eczema, due to unspecified cause 05/10/2009 07/26/2015 Other acne 05/10/2009 07/26/2015 Cellulitis and abscess of trunk 10/24/2007 07/26/2015 INGUINAL HERNIA, UNILATERAL W/O GANGRENE/OBSTRUCTION 01/21/2007 07/26/2015 UMBILICAL HERNIA W/O GANGRENE/OBSTRUCTION 01/21/2007 07/26/2015 Cough 02/19/2006 07/26/2015 Calculus of kidney 6 documented as of this encounter (statuses as of 02/11/2023) [facility] History of Past illness Narrative* Problem Noted Date Diagnosed Date Resolved Date On tube feeding diet 08/14/2020 021 Overview: History: 65 year old male s/p [place] esophagectomy, Pyloromyotomy, Jejunostomy tube placement for esophageal adenocarcinoma -Diet: Isosource 1.5 to 50 cc hour with 100 cc water flushes 8 times per day and Bene protein 3 times per day Removed 11/17/2020 Obesity, Class I, BMI 30-34.9 05/17/2020 07/19/2021 Obesity, Class II, BMI 35-39.9 E66.9 07/23/2017 07/19/2021 Chest pain 07/23/2017 07/23/2017 Hematuria 07/20/2014 12/01/2016 Arthritis of right hand 08/04/201307/08 Right carpal tunnel syndrome 08/04/2013 07/26/2015 Boil of buttock 05/10/2009 07/26/2015 Epidermal inclusion cyst 05/10/2009 Pyoderma, unspecified 05/10/20092015 Contact dermatitis and other eczema, due to unspecified cause 05/10/2009 07/26/2015 Other acne 05/10/2009 07/26/2015 Cellulitis and abscess of trunk 10/24/2007 07/26/2015 INGUINAL HERNIA, UNILATERAL W/O GANGRENE/OBSTRUCTION 01/21/2007 07/26/2015 UMBILICAL HERNIA W/O GANGRENE/OBSTRUCTION 01/21/2007 07/26/2015 Cough 02/19/2006 07/26/2015 Calculus of kidney 6 documented as of this encounter (statuses as of 02/11/2023) [facility] History of Past illness Narrative* Problem Noted Date Diagnosed Date Resolved Date On tube feeding diet 08/14/2020 021 Overview: History: 65 year old male s/p [place] esophagectomy, Pyloromyotomy, Jejunostomy tube placement for esophageal adenocarcinoma -Diet: Isosource 1.5 to 50 cc hour with 100 cc water flushes 8 times per day and Bene protein 3 times per day Removed 11/17/2020 Obesity, Class I, BMI 30-34.9 05/17/2020 07/19/2021 Obesity, Class II, BMI 35-39.9 E66.9 07/23/2017 07/19/2021 Chest pain 07/23/2017 07/23/2017 Hematuria 07/20/2014 12/01/2016 Arthritis of right hand 08/04/201307/08 Right carpal tunnel syndrome 08/04/2013 07/26/2015 Boil of buttock 05/10/2009 07/26/2015 Epidermal inclusion cyst 05/10/2009 Pyoderma, unspecified 05/10/20092015 Contact dermatitis and other eczema, due to unspecified cause 05/10/2009 07/26/2015 Other acne 05/10/2009 07/26/2015 Cellulitis and abscess of trunk 10/24/2007 07/26/2015 INGUINAL HERNIA, UNILATERAL W/O GANGRENE/OBSTRUCTION 01/21/2007 07/26/2015 UMBILICAL HERNIA W/O GANGRENE/OBSTRUCTION 01/21/2007 07/26/2015 Cough 02/19/2006 07/26/2015 Calculus of kidney 6 documented as of this encounter (statuses as of 02/11/2023) [facility] History of Past illness Narrative* Problem Noted Date Diagnosed Date Resolved Date On tube feeding diet 08/14/2020 021 Overview: History: 65 year old male s/p [place] esophagectomy, Pyloromyotomy, Jejunostomy tube placement for esophageal adenocarcinoma -Diet: Isosource 1.5 to 50 cc hour with 100 cc water flushes 8 times per day and Bene protein 3 times per day Removed 11/17/2020 Obesity, Class I, BMI 30-34.9 05/17/2020 07/19/2021 Obesity, Class II, BMI 35-39.9 E66.9 07/23/2017 07/19/2021 Chest pain 07/23/2017 07/23/2017 Hematuria 07/20/2014 12/01/2016 Arthritis of right hand 08/04/201307/08 Right carpal tunnel syndrome 08/04/2013 07/26/2015 Boil of buttock 05/10/2009 07/26/2015 Epidermal inclusion cyst 05/10/2009 Pyoderma, unspecified 05/10/20092015 Contact dermatitis and other eczema, due to unspecified cause 05/10/2009 07/26/2015 Other acne 05/10/2009 07/26/2015 Cellulitis and abscess of trunk 10/24/2007 07/26/2015 INGUINAL HERNIA, UNILATERAL W/O GANGRENE/OBSTRUCTION 01/21/2007 07/26/2015 UMBILICAL HERNIA W/O GANGRENE/OBSTRUCTION 01/21/2007 07/26/2015 Cough 02/19/2006 07/26/2015 Calculus of kidney 6 documented as of this encounter (statuses as of 02/13/2023) [facility] History of Past illness Narrative* Problem Noted Date Diagnosed Date Resolved Date On tube feeding diet 08/14/2020 021 Overview: History: 65 year old male s/p [place] esophagectomy, Pyloromyotomy, Jejunostomy tube placement for esophageal adenocarcinoma -Diet: Isosource 1.5 to 50 cc hour with 100 cc water flushes 8 times per day and Bene protein 3 times per day Removed 11/17/2020 Obesity, Class I, BMI 30-34.9 05/17/2020 07/19/2021 Obesity, Class II, BMI 35-39.9 E66.9 07/23/2017 07/19/2021 Chest pain 07/23/2017 07/23/2017 Hematuria 07/20/2014 12/01/2016 Arthritis of right hand 08/04/201307/08 Right carpal tunnel syndrome 08/04/2013 07/26/2015 Boil of buttock 05/10/2009 07/26/2015 Epidermal inclusion cyst 05/10/2009 Pyoderma, unspecified 05/10/20092015 Contact dermatitis and other eczema, due to unspecified cause 05/10/2009 07/26/2015 Other acne 05/10/2009 07/26/2015 Cellulitis and abscess of trunk 10/24/2007 07/26/2015 INGUINAL HERNIA, UNILATERAL W/O GANGRENE/OBSTRUCTION 01/21/2007 07/26/2015 UMBILICAL HERNIA W/O GANGRENE/OBSTRUCTION 01/21/2007 07/26/2015 Cough 02/19/2006 07/26/2015 Calculus of kidney 6 documented as of this encounter (statuses as of 02/14/2023) [facility] History of Past illness Narrative* Problem Noted Date Diagnosed Date Resolved Date On tube feeding diet 08/14/2020 021 Overview: History: 65 year old male s/p [place] esophagectomy, Pyloromyotomy, Jejunostomy tube placement for esophageal adenocarcinoma -Diet: Isosource 1.5 to 50 cc hour with 100 cc water flushes 8 times per day and Bene protein 3 times per day Removed 11/17/2020 Obesity, Class I, BMI 30-34.9 05/17/2020 07/19/2021 Obesity, Class II, BMI 35-39.9 E66.9 07/23/2017 07/19/2021 Chest pain 07/23/2017 07/23/2017 Hematuria 07/20/2014 12/01/2016 Arthritis of right hand 08/04/201307/08 Right carpal tunnel syndrome 08/04/2013 07/26/2015 Boil of buttock 05/10/2009 07/26/2015 Epidermal inclusion cyst 05/10/2009 Pyoderma, unspecified 05/10/20092015 Contact dermatitis and other eczema, due to unspecified cause 05/10/2009 07/26/2015 Other acne 05/10/2009 07/26/2015 Cellulitis and abscess of trunk 10/24/2007 07/26/2015 INGUINAL HERNIA, UNILATERAL W/O GANGRENE/OBSTRUCTION 01/21/2007 07/26/2015 UMBILICAL HERNIA W/O GANGRENE/OBSTRUCTION 01/21/2007 07/26/2015 Cough 02/19/2006 07/26/2015 Calculus of kidney 6 documented as of this encounter (statuses as of 02/14/2023) [facility] History of Past illness Narrative* Problem Noted Date Diagnosed Date Resolved Date On tube feeding diet 08/14/2020 021 Overview: History: 65 year old male s/p [place] esophagectomy, Pyloromyotomy, Jejunostomy tube placement for esophageal adenocarcinoma -Diet: Isosource 1.5 to 50 cc hour with 100 cc water flushes 8 times per day and Bene protein 3 times per day Removed 11/17/2020 Obesity, Class I, BMI 30-34.9 05/17/2020 07/19/2021 Obesity, Class II, BMI 35-39.9 E66.9 07/23/2017 07/19/2021 Chest pain 07/23/2017 07/23/2017 Hematuria 07/20/2014 12/01/2016 Arthritis of right hand 08/04/201307/08 Right carpal tunnel syndrome 08/04/2013 07/26/2015 Boil of buttock 05/10/2009 07/26/2015 Epidermal inclusion cyst 05/10/2009 Pyoderma, unspecified 05/10/20092015 Contact dermatitis and other eczema, due to unspecified cause 05/10/2009 07/26/2015 Other acne 05/10/2009 07/26/2015 Cellulitis and abscess of trunk 10/24/2007 07/26/2015 INGUINAL HERNIA, UNILATERAL W/O GANGRENE/OBSTRUCTION 01/21/2007 07/26/2015 UMBILICAL HERNIA W/O GANGRENE/OBSTRUCTION 01/21/2007 07/26/2015 Cough 02/19/2006 07/26/2015 Calculus of kidney 6 documented as of this encounter (statuses as of 02/20/2023) [facility] History of Past illness Narrative* Problem Noted Date Diagnosed Date Resolved Date On tube feeding diet 08/14/2020 021 Overview: History: 65 year old male s/p [employer] [employer] esophagectomy, Pyloromyotomy, Jejunostomy tube placement for esophageal adenocarcinoma -Diet: Isosource 1.5 to 50 cc hour with 100 cc water flushes 8 times per day and Bene protein 3 times per day Removed 11/17/2020 Obesity, Class I, BMI 30-34.9 05/17/2020 07/19/2021 Obesity, Class II, BMI 35-39.9 E66.9 07/23/2017 07/19/2021 Chest pain 07/23/2017 07/23/2017 Hematuria 07/20/2014 12/01/2016 Arthritis of right hand 08/04/201307/08 Right carpal tunnel syndrome 08/04/2013 07/26/2015 Boil of buttock 05/10/2009 07/26/2015 Epidermal inclusion cyst 05/10/2009 Pyoderma, unspecified 05/10/20092015 Contact dermatitis and other eczema, due to unspecified cause 05/10/2009 07/26/2015 Other acne 05/10/2009 07/26/2015 Cellulitis and abscess of trunk 10/24/2007 07/26/2015 INGUINAL HERNIA, UNILATERAL W/O GANGRENE/OBSTRUCTION 01/21/2007 07/26/2015 UMBILICAL HERNIA W/O GANGRENE/OBSTRUCTION 01/21/2007 07/26/2015 Cough 02/19/2006 07/26/2015 Calculus of kidney 6 documented as of this encounter (statuses as of 02/21/2023) [facility]05-08-2021 History of Past illness Narrative* Problem Noted Date Diagnosed Date Resolved Date On tube feeding diet 08/14/2020 021 Overview: History: 65 year old male s/p [place] esophagectomy, Pyloromyotomy, Jejunostomy tube placement for esophageal adenocarcinoma -Diet: Isosource 1.5 to 50 cc hour with 100 cc water flushes 8 times per day and Bene protein 3 times per day Removed 11/17/2020 Obesity, Class I, BMI 30-34.9 05/17/2020 07/19/2021 Obesity, Class II, BMI 35-39.9 E66.9 07/23/2017 07/19/2021 Chest pain 07/23/2017 07/23/2017 Hematuria 07/20/2014 12/01/2016 Arthritis of right hand 08/04/201307/08 Right carpal tunnel syndrome 08/04/2013 07/26/2015 Boil of buttock 05/10/2009 07/26/2015 Epidermal inclusion cyst 05/10/2009 Pyoderma, unspecified 05/10/20092015 Contact dermatitis and other eczema, due to unspecified cause 05/10/2009 07/26/2015 Other acne 05/10/2009 07/26/2015 Cellulitis and abscess of trunk 10/24/2007 07/26/2015 INGUINAL HERNIA, UNILATERAL W/O GANGRENE/OBSTRUCTION 01/21/2007 07/26/2015 UMBILICAL HERNIA W/O GANGRENE/OBSTRUCTION 01/21/2007 07/26/2015 Cough 02/19/2006 07/26/2015 Calculus of kidney 6 documented as of this encounter (statuses as of 02/28/2023) [facility]05-08-2021 History of Past illness Narrative* Problem Noted Date Diagnosed Date Resolved Date On tube feeding diet 08/14/2020 021 Overview: History: 65 year old male s/p [place] esophagectomy, Pyloromyotomy, Jejunostomy tube placement for esophageal adenocarcinoma -Diet: Isosource 1.5 to 50 cc hour with 100 cc water flushes 8 times per day and Bene protein 3 times per day Removed 11/17/2020 Obesity, Class I, BMI 30-34.9 05/17/2020 07/19/2021 Obesity, Class II, BMI 35-39.9 E66.9 07/23/2017 07/19/2021 Chest pain 07/23/2017 07/23/2017 Hematuria 07/20/2014 12/01/2016 Arthritis of right hand 08/04/201307/08 Right carpal tunnel syndrome 08/04/2013 07/26/2015 Boil of buttock 05/10/2009 07/26/2015 Epidermal inclusion cyst 05/10/2009 Pyoderma, unspecified 05/10/20092015 Contact dermatitis and other eczema, due to unspecified cause 05/10/2009 07/26/2015 Other acne 05/10/2009 07/26/2015 Cellulitis and abscess of trunk 10/24/2007 07/26/2015 INGUINAL HERNIA, UNILATERAL W/O GANGRENE/OBSTRUCTION 01/21/2007 07/26/2015 UMBILICAL HERNIA W/O GANGRENE/OBSTRUCTION 01/21/2007 07/26/2015 Cough 02/19/2006 07/26/2015 Calculus of kidney 6 documented as of this encounter (statuses as of 03/30/2023) [facility]05[facility]21 History of Past illness Narrative* Problem Noted Date Diagnosed Date Resolved Date On tube feeding diet 08/14/2020 021 Overview: History: 65 year old male s/p [place] esophagectomy, Pyloromyotomy, Jejunostomy tube placement for esophageal adenocarcinoma -Diet: Isosource 1.5 to 50 cc hour with 100 cc water flushes 8 times per day and Bene protein 3 times per day Removed 11/17/2020 Obesity, Class I, BMI 30-34.9 05/17/2020 07/19/2021 Obesity, Class II, BMI 35-39.9 E66.9 07/23/2017 07/19/2021 Chest pain 07/23/2017 07/23/2017 Hematuria 07/20/2014 12/01/2016 Arthritis of right hand 08/04/201307/08 Right carpal tunnel syndrome 08/04/2013 07/26/2015 Boil of buttock 05/10/2009 07/26/2015 Epidermal inclusion cyst 05/10/2009 Pyoderma, unspecified 05/10/20092015 Contact dermatitis and other eczema, due to unspecified cause 05/10/2009 07/26/2015 Other acne 05/10/2009 07/26/2015 Cellulitis and abscess of trunk 10/24/2007 07/26/2015 INGUINAL HERNIA, UNILATERAL W/O GANGRENE/OBSTRUCTION 01/21/2007 07/26/2015 UMBILICAL HERNIA W/O GANGRENE/OBSTRUCTION 01/21/2007 07/26/2015 Cough 02/19/2006 07/26/2015 Calculus of kidney 6 documented as of this encounter (statuses as of 05/28/2023) [facility] History of Past illness Narrative* Problem Noted Date Diagnosed Date Resolved Date On tube feeding diet 08/14/2020 021 Overview: History: 65 year old male s/p [place] esophagectomy, Pyloromyotomy, Jejunostomy tube placement for esophageal adenocarcinoma -Diet: Isosource 1.5 to 50 cc hour with 100 cc water flushes 8 times per day and Bene protein 3 times per day Removed 11/17/2020 Obesity, Class I, BMI 30-34.9 05/17/2020 07/19/2021 Obesity, Class II, BMI 35-39.9 E66.9 07/23/2017 07/19/2021 Chest pain 07/23/2017 07/23/2017 Hematuria 07/20/2014 12/01/2016 Arthritis of right hand 08/04/201307/08 Right carpal tunnel syndrome 08/04/2013 07/26/2015 Boil of buttock 05/10/2009 07/26/2015 Epidermal inclusion cyst 05/10/2009 Pyoderma, unspecified 05/10/20092015 Contact dermatitis and other eczema, due to unspecified cause 05/10/2009 07/26/2015 Other acne 05/10/2009 07/26/2015 Cellulitis and abscess of trunk 10/24/2007 07/26/2015 INGUINAL HERNIA, UNILATERAL W/O GANGRENE/OBSTRUCTION 01/21/2007 07/26/2015 UMBILICAL HERNIA W/O GANGRENE/OBSTRUCTION 01/21/2007 07/26/2015 Cough 02/19/2006 07/26/2015 Calculus of kidney 6 documented as of this encounter (statuses as of 05/29/2023) [facility] History of Past illness Narrative* Problem Noted Date Diagnosed Date Resolved Date On tube feeding diet 08/14/2020 021 Overview: History: 65 year old male s/p [place] esophagectomy, Pyloromyotomy, Jejunostomy tube placement for esophageal adenocarcinoma -Diet: Isosource 1.5 to 50 cc hour with 100 cc water flushes 8 times per day and Bene protein 3 times per day Removed 11/17/2020 Obesity, Class I, BMI 30-34.9 05/17/2020 07/19/2021 Obesity, Class II, BMI 35-39.9 E66.9 07/23/2017 07/19/2021 Chest pain 07/23/2017 07/23/2017 Hematuria 07/20/2014 12/01/2016 Arthritis of right hand 08/04/201307/08 Right carpal tunnel syndrome 08/04/2013 07/26/2015 Boil of buttock 05/10/2009 07/26/2015 Epidermal inclusion cyst 05/10/2009 Pyoderma, unspecified 05/10/20092015 Contact dermatitis and other eczema, due to unspecified cause 05/10/2009 07/26/2015 Other acne 05/10/2009 07/26/2015 Cellulitis and abscess of trunk 10/24/2007 07/26/2015 INGUINAL HERNIA, UNILATERAL W/O GANGRENE/OBSTRUCTION 01/21/2007 07/26/2015 UMBILICAL HERNIA W/O GANGRENE/OBSTRUCTION 01/21/2007 07/26/2015 Cough 02/19/2006 07/26/2015 Calculus of kidney 6 documented as of this encounter (statuses as of 06/06/2023) [facility]21 History of Past illness Narrative* Problem Noted Date Diagnosed Date Resolved Date On tube feeding diet 08/14/2020 021 Overview: History: 65 year old male s/p [place] esophagectomy, Pyloromyotomy, Jejunostomy tube placement for esophageal adenocarcinoma -Diet: Isosource 1.5 to 50 cc hour with 100 cc water flushes 8 times per day and Bene protein 3 times per day Removed 11/17/2020 Obesity, Class I, BMI 30-34.9 05/17/2020 07/19/2021 Obesity, Class II, BMI 35-39.9 E66.9 07/23/2017 07/19/2021 Chest pain 07/23/2017 07/23/2017 Hematuria 07/20/2014 12/01/2016 Arthritis of right hand 08/04/201307/08 Right carpal tunnel syndrome 08/04/2013 07/26/2015 Boil of buttock 05/10/2009 07/26/2015 Epidermal inclusion cyst 05/10/2009 Pyoderma, unspecified 05/10/20092015 Contact dermatitis and other eczema, due to unspecified cause 05/10/2009 07/26/2015 Other acne 05/10/2009 07/26/2015 Cellulitis and abscess of trunk 10/24/2007 07/26/2015 INGUINAL HERNIA, UNILATERAL W/O GANGRENE/OBSTRUCTION 01/21/2007 07/26/2015 UMBILICAL HERNIA W/O GANGRENE/OBSTRUCTION 01/21/2007 07/26/2015 Cough 02/19/2006 07/26/2015 Calculus of kidney 6 documented as of this encounter (statuses as of 06/18/2023) [facility] History of Past illness Narrative* Problem Noted Date Diagnosed Date Resolved Date On tube feeding diet 08/14/2020 021 Overview: History: 65 year old male s/p [place] esophagectomy, Pyloromyotomy, Jejunostomy tube placement for esophageal adenocarcinoma -Diet: Isosource 1.5 to 50 cc hour with 100 cc water flushes 8 times per day and Bene protein 3 times per day Removed 11/17/2020 Obesity, Class I, BMI 30-34.9 05/17/2020 07/19/2021 Obesity, Class II, BMI 35-39.9 E66.9 07/23/2017 07/19/2021 Chest pain 07/23/2017 07/23/2017 Hematuria 07/20/2014 12/01/2016 Arthritis of right hand 08/04/201307/08 Right carpal tunnel syndrome 08/04/2013 07/26/2015 Boil of buttock 05/10/2009 07/26/2015 Epidermal inclusion cyst 05/10/2009 Pyoderma, unspecified 05/10/20092015 Contact dermatitis and other eczema, due to unspecified cause 05/10/2009 07/26/2015 Other acne 05/10/2009 07/26/2015 Cellulitis and abscess of trunk 10/24/2007 07/26/2015 INGUINAL HERNIA, UNILATERAL W/O GANGRENE/OBSTRUCTION 01/21/2007 07/26/2015 UMBILICAL HERNIA W/O GANGRENE/OBSTRUCTION 01/21/2007 07/26/2015 Cough 02/19/2006 07/26/2015 Calculus of kidney 6 documented as of this encounter (statuses as of 06/19/2023) [facility] History of Past illness Narrative* Problem Noted Date Diagnosed Date Resolved Date On tube feeding diet 08/14/2020 021 Overview: History: 65 year old male s/p [place] esophagectomy, Pyloromyotomy, Jejunostomy tube placement for esophageal adenocarcinoma -Diet: Isosource 1.5 to 50 cc hour with 100 cc water flushes 8 times per day and Bene protein 3 times per day Removed 11/17/2020 Obesity, Class I, BMI 30-34.9 05/17/2020 07/19/2021 Obesity, Class II, BMI 35-39.9 E66.9 07/23/2017 07/19/2021 Chest pain 07/23/2017 07/23/2017 Hematuria 07/20/2014 12/01/2016 Arthritis of right hand 08/04/201307/08 Right carpal tunnel syndrome 08/04/2013 07/26/2015 Boil of buttock 05/10/2009 07/26/2015 Epidermal inclusion cyst 05/10/2009 Pyoderma, unspecified 05/10/20092015 Contact dermatitis and other eczema, due to unspecified cause 05/10/2009 07/26/2015 Other acne 05/10/2009 07/26/2015 Cellulitis and abscess of trunk 10/24/2007 07/26/2015 INGUINAL HERNIA, UNILATERAL W/O GANGRENE/OBSTRUCTION 01/21/2007 07/26/2015 UMBILICAL HERNIA W/O GANGRENE/OBSTRUCTION 01/21/2007 07/26/2015 Cough 02/19/2006 07/26/2015 Calculus of kidney 6 documented as of this encounter (statuses as of 06/21/2023) [facility] History of Past illness Narrative* Problem Noted Date Diagnosed Date Resolved Date On tube feeding diet 08/14/2020 021 Overview: History: 65 year old male s/p [place] esophagectomy, Pyloromyotomy, Jejunostomy tube placement for esophageal adenocarcinoma -Diet: Isosource 1.5 to 50 cc hour with 100 cc water flushes 8 times per day and Bene protein 3 times per day Removed 11/17/2020 Obesity, Class I, BMI 30-34.9 05/17/2020 07/19/2021 Obesity, Class II, BMI 35-39.9 E66.9 07/23/2017 07/19/2021 Chest pain 07/23/2017 07/23/2017 Hematuria 07/20/2014 12/01/2016 Arthritis of right hand 08/04/201307/08 Right carpal tunnel syndrome 08/04/2013 07/26/2015 Boil of buttock 05/10/2009 07/26/2015 Epidermal inclusion cyst 05/10/2009 Pyoderma, unspecified 05/10/20092015 Contact dermatitis and other eczema, due to unspecified cause 05/10/2009 07/26/2015 Other acne 05/10/2009 07/26/2015 Cellulitis and abscess of trunk 10/24/2007 07/26/2015 INGUINAL HERNIA, UNILATERAL W/O GANGRENE/OBSTRUCTION 01/21/2007 07/26/2015 UMBILICAL HERNIA W/O GANGRENE/OBSTRUCTION 01/21/2007 07/26/2015 Cough 02/19/2006 07/26/2015 Calculus of kidney 6 documented as of this encounter (statuses as of 06/29/2023) [facility] History of Past illness Narrative* Problem Noted Date Diagnosed Date Resolved Date On tube feeding diet 08/14/2020 021 Overview: History: 65 year old male s/p [place] esophagectomy, Pyloromyotomy, Jejunostomy tube placement for esophageal adenocarcinoma -Diet: Isosource 1.5 to 50 cc hour with 100 cc water flushes 8 times per day and Bene protein 3 times per day Removed 11/17/2020 Obesity, Class I, BMI 30-34.9 05/17/2020 07/19/2021 Obesity, Class II, BMI 35-39.9 E66.9 07/23/2017 07/19/2021 Chest pain 07/23/2017 07/23/2017 Hematuria 07/20/2014 12/01/2016 Arthritis of right hand 08/04/201307/08 Right carpal tunnel syndrome 08/04/2013 07/26/2015 Boil of buttock 05/10/2009 07/26/2015 Epidermal inclusion cyst 05/10/2009 Pyoderma, unspecified 05/10/20092015 Contact dermatitis and other eczema, due to unspecified cause 05/10/2009 07/26/2015 Other acne 05/10/2009 07/26/2015 Cellulitis and abscess of trunk 10/24/2007 07/26/2015 INGUINAL HERNIA, UNILATERAL W/O GANGRENE/OBSTRUCTION 01/21/2007 07/26/2015 UMBILICAL HERNIA W/O GANGRENE/OBSTRUCTION 01/21/2007 07/26/2015 Cough 02/19/2006 07/26/2015 Calculus of kidney 6 documented as of this encounter (statuses as of 06/29/2023) [facility] History of Past illness Narrative* Problem Noted Date Diagnosed Date Resolved Date On tube feeding diet 08/14/2020 021 Overview: History: 65 year old male s/p [place] esophagectomy, Pyloromyotomy, Jejunostomy tube placement for esophageal adenocarcinoma -Diet: Isosource 1.5 to 50 cc hour with 100 cc water flushes 8 times per day and Bene protein 3 times per day Removed 11/17/2020 Obesity, Class I, BMI 30-34.9 05/17/2020 07/19/2021 Obesity, Class II, BMI 35-39.9 E66.9 07/23/2017 07/19/2021 Chest pain 07/23/2017 07/23/2017 Hematuria 07/20/2014 12/01/2016 Arthritis of right hand 08/04/201307/08 Right carpal tunnel syndrome 08/04/2013 07/26/2015 Boil of buttock 05/10/2009 07/26/2015 Epidermal inclusion cyst 05/10/2009 Pyoderma, unspecified 05/10/20092015 Contact dermatitis and other eczema, due to unspecified cause 05/10/2009 07/26/2015 Other acne 05/10/2009 07/26/2015 Cellulitis and abscess of trunk 10/24/2007 07/26/2015 INGUINAL HERNIA, UNILATERAL W/O GANGRENE/OBSTRUCTION 01/21/2007 07/26/2015 UMBILICAL HERNIA W/O GANGRENE/OBSTRUCTION 01/21/2007 07/26/2015 Cough 02/19/2006 07/26/2015 Calculus of kidney 6 documented as of this encounter (statuses as of 06/29/2023) [facility] History of Past illness Narrative* Problem Noted Date Diagnosed Date Resolved Date On tube feeding diet 08/14/2020 021 Overview: History: 65 year old male s/p [place] esophagectomy, Pyloromyotomy, Jejunostomy tube placement for esophageal adenocarcinoma -Diet: Isosource 1.5 to 50 cc hour with 100 cc water flushes 8 times per day and Bene protein 3 times per day Removed 11/17/2020 Obesity, Class I, BMI 30-34.9 05/17/2020 07/19/2021 Obesity, Class II, BMI 35-39.9 E66.9 07/23/2017 07/19/2021 Chest pain 07/23/2017 07/23/2017 Hematuria 07/20/2014 12/01/2016 Arthritis of right hand 08/04/201307/08 Right carpal tunnel syndrome 08/04/2013 07/26/2015 Boil of buttock 05/10/2009 07/26/2015 Epidermal inclusion cyst 05/10/2009 Pyoderma, unspecified 05/10/20092015 Contact dermatitis and other eczema, due to unspecified cause 05/10/2009 07/26/2015 Other acne 05/10/2009 07/26/2015 Cellulitis and abscess of trunk 10/24/2007 07/26/2015 INGUINAL HERNIA, UNILATERAL W/O GANGRENE/OBSTRUCTION 01/21/2007 07/26/2015 UMBILICAL HERNIA W/O GANGRENE/OBSTRUCTION 01/21/2007 07/26/2015 Cough 02/19/2006 07/26/2015 Calculus of kidney 6 documented as of this encounter (statuses as of 07/02/2023) [facility] History of Past illness Narrative* Problem Noted Date Diagnosed Date Resolved Date On tube feeding diet 08/14/2020 021 Overview: History: 65 year old male s/p [place] esophagectomy, Pyloromyotomy, Jejunostomy tube placement for esophageal adenocarcinoma -Diet: Isosource 1.5 to 50 cc hour with 100 cc water flushes 8 times per day and Bene protein 3 times per day Removed 11/17/2020 Obesity, Class I, BMI 30-34.9 05/17/2020 07/19/2021 Obesity, Class II, BMI 35-39.9 E66.9 07/23/2017 07/19/2021 Chest pain 07/23/2017 07/23/2017 Hematuria 07/20/2014 12/01/2016 Arthritis of right hand 08/04/201307/08 Right carpal tunnel syndrome 08/04/2013 07/26/2015 Boil of buttock 05/10/2009 07/26/2015 Epidermal inclusion cyst 05/10/2009 Pyoderma, unspecified 05/10/20092015 Contact dermatitis and other eczema, due to unspecified cause 05/10/2009 07/26/2015 Other acne 05/10/2009 07/26/2015 Cellulitis and abscess of trunk 10/24/2007 07/26/2015 INGUINAL HERNIA, UNILATERAL W/O GANGRENE/OBSTRUCTION 01/21/2007 07/26/2015 UMBILICAL HERNIA W/O GANGRENE/OBSTRUCTION 01/21/2007 07/26/2015 Cough 02/19/2006 07/26/2015 Calculus of kidney 6 documented as of this encounter (statuses as of 07/13/2023) [facility] History of Past illness Narrative* Problem Noted Date Diagnosed Date Resolved Date On tube feeding diet 08/14/2020 021 Overview: History: 65 year old male s/p [place] esophagectomy, Pyloromyotomy, Jejunostomy tube placement for esophageal adenocarcinoma -Diet: Isosource 1.5 to 50 cc hour with 100 cc water flushes 8 times per day and Bene protein 3 times per day Removed 11/17/2020 Obesity, Class I, BMI 30-34.9 05/17/2020 07/19/2021 Obesity, Class II, BMI 35-39.9 E66.9 07/23/2017 07/19/2021 Chest pain 07/23/2017 07/23/2017 Hematuria 07/20/2014 12/01/2016 Arthritis of right hand 08/04/201307/08 Right carpal tunnel syndrome 08/04/2013 07/26/2015 Boil of buttock 05/10/2009 07/26/2015 Epidermal inclusion cyst 05/10/2009 Pyoderma, unspecified 05/10/20092015 Contact dermatitis and other eczema, due to unspecified cause 05/10/2009 07/26/2015 Other acne 05/10/2009 07/26/2015 Cellulitis and abscess of trunk 10/24/2007 07/26/2015 INGUINAL HERNIA, UNILATERAL W/O GANGRENE/OBSTRUCTION 01/21/2007 07/26/2015 UMBILICAL HERNIA W/O GANGRENE/OBSTRUCTION 01/21/2007 07/26/2015 Cough 02/19/2006 07/26/2015 Calculus of kidney 6 documented as of this encounter (statuses as of 07/20/2023) [facility]-2021 NoteHNO ID: [id number] Author: Renetta Radford Service: ? Author Type: Physician Type: Progress Notes Filed: 07/15/2020 10:05 AM Note Text: I had the pleasure of seeing Mr. 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 He reports tolerating his therapy quite well, he has regained normal swallowing function and can eat meats and breads without difficulty. He denies any new chest or abdominal symptoms. We reviewed his scans which reveal no evidence of disease progression. We had a lengthy discussion about his upcoming surgical resection and I encouraged him to increase his physical activity level preop to improve his strength before surgery. He has a tentative date set for 5/3; we will plan to bring him back preop for a standard preop evaluation. I have spent 20 minutes in counseling and coordination of care for this patient. I spent more than 50% of the visit face to face with the patient counseling on treatment options and the subsequent plan. Renetta Radford MD Pt here for follow up visit: RESTAGING Malignant 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) +1 more Last clinic note 05/14/2020 per Renetta Radford M.D. Impression: I had a lengthy discussion with Mr. Landa and reviewed his imaging with him. I believe he is an appropriate candidate for trimodality therapy for his esophageal cancer, Dr. Jenkins and Kirill have already evaluated the patient and are prepared to embark on treatment. 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 ? Plan: 1) Cards clearance from primary fiber optic assembly worker 2) RTC following completion of induction therapy for restaging and surgical planning ? Today's visit 07/14/2020 BP 135/78 (BP Site: Left Arm, BP Position: Sitting, BP Cuff Size: Large Adult) Pulse 100 Resp 16 Ht 177.8 cm (5' 10") Wt 108 kg (238 lb) SpO2 97% BMI 34.15 kg/m? Patient completed radiation and chemo has no complaints. Sumi Tan RN CT CHEST 07/14/2020 in process POST INDUCTION FOLLOW UP: Chemotherapy Completion: 06/28/2020 (Dr Jenkins) ? Radiation Completion: 06/23/2020 (Dr Roy) RADIATION ONCOLOGY - COMPLETION NOTE ?DATE OF SIMULATION: ??05/17/20?DATES OF TREATMENT: ??05/24/20 - 06/23/20 ? 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 ? DELIVERED DOSE: ?4140 cGy in 23 fractions treating to the 94.7% isodose ?line with 15 MV and 4 boles. IGRT with daily CBCTs. Concurrent ?chemotherapy with weekly Carboplatin/Taxol. ? Patient will need return visit with restaging testing on July 09 [facility] or July [address] [place] [address] Chest/Abd/Pelvis Anticipated OR Date: 08/09/2020 MAIN [facility] 08/06/2020 MAIN COVID 08/06/2020 MAIN ? Alisa Estrada RN ? Stress Test 06/25/2020 Conclusion: Normal exercise myocardial perfusion stress test at a moderate workload with no evidence of ischemia. Good functional capacity. No angina noted. ? OPD note 06/25/2020 Hem/Onc ? ?[facility]04-07-2021 NoteHNO ID: [id number] Author: Barry Shaw (Tech) Service: Radiology Author Type: Advanced Manufacturing Engineer Type: Progress Notes Filed: 07/14/2020 12:10 PM Note Text: Radiology Service Progress Note PATIENT NAME: Jacob Landa DATE OF SERVICE: July 14, 2020 TIME: 12:10 PM PATIENT IDENTITY VERIFICATION COMPLETED USING TWO (2) IDENTIFIERS: Name and Date of confirmed by patient verbally. FALL SCREENING: Has the patient had 2 falls in the last year or 1 fall with injury or currently using an Ambulatory Assistive Device (Walker, Cane, Wheelchair, Crutches, etc.)? No PATIENT GENDER DATA: Male PATIENT RELEVANT IMPLANT DATA REVIEWED: Not Applicable RADIOLOGY DEPARTMENT: CT; Exam(s) Completed: Chest Abdomen Pelvis PERIPHERAL IV DATA: Not applicable SIGNED BY: Barry Shaw July 14, 2020 12:10 [facility] NoteHNO ID: [id number] Author: Jordana Jeffries RN Service: Radiology Author Type: Registered Nurse Type: Progress Notes Filed: 07/14/2020 11:14 AM Note Text: Radiology Service Progress Note DATE OF SERVICE: July 14, 2020 TIME: 11:09 AM PATIENT WEIGHT: 223 LBS PATIENT IDENTITY VERIFICATION COMPLETED USING TWO (2) STANDARD IDENTIFIERS: Name and Date of confirmed by patient verbally and Name and Date of confirmed by identification band. FALL SCREENING: Has the patient had 2 falls in the last year or 1 fall with injury or currently using an Ambulatory Assistive Device (Walker, Cane, Wheelchair, Crutches, etc.)? No PATIENT GENDER DATA: Male ALLERGIES: Reviewed and unchanged CONTRAST ALLERGY: No EXAM: CT -CONTRAST INDUCED NEPHROPATHY RISK FACTORS: Patient age > 60 years CREATININE: Creatinine Date Value Ref Range Status 06/25/2020 0.96 0.73 - 1.22 mg/dL Final 06/21/2020 0.86 0.73 - 1.22 mg/dL Final 06/14/2020 0.89 0.73 - 1.22 mg/dL Final eGFR-All Other Races Date Value Ref Range Status 06/25/2020 >60 . Final Comment: eGFR (Estimated GFR) Units of measure: mL/min/1.73 meters squared eGFR is derived from the reexpressed MDRD Study equation using the following parameters: serum creatinine, age, gender and race. The creatinine assay has been calibrated to be traceable to IDMS. An eGFR <60 mL/min/1.73m2 for >3 months is consistent with chronic kidney disease. Refer to KDOQI guidelines for clinical interpretation. In patients with unstable renal function, e.g. those with acute kidney injury, the eGFR may not accurately reflect actual GFR. eGFR- Date Value Ref Range Status 06/25/2020 >60 Final P.O.C.T. RESULTS: N/A July 14, 2020 TREATMENT: N/A IV SITE: Ambulatory: A peripheral IV was started in the Right antecubital site with a Angio cath: 20 gauge. IV SITE APPEARANCE: Clean,Dry and Intact SIGNATURE: Jordana Jeffries RN PATIENT NAME: Jacob Landa DATE: July 14, 2020 TIME: 11:09 [facility]11-25-2019 Evaluation note* Diagnosis Onset Date Resolution Status Adenocarcinoma of esophagus chronic Atherosclerosis of coronary artery of [place] heart without angina pectoris chronic Hyperlipidemia chronic History of aortic valve replacement March 03 9 resolved [facility] Work Phone: Consult note Author Tawny Covington [facility] Note Date/Time June 30, 2024 10: 16am [facility] Medical Records Department [address] [place] [address] Anesthesia Postop Eval II 06/30/24 1015 MR#: [id number] Acct: [id number] Name: JACOB LANDA Rep #:[id number] : 1955 69 From: Tawny Covington PCP: Dr. Yaw Singh MD Status:REG SDC Y Race: C Location: [facility]03-1 Anesthesia Postop Eval I Sum Postop Eval Completion status Anesthesia document: Postop Eval 1 completed: Yes Anesthesia Postop Eval I Summary Anesthesia Postop Eval I Summary: Anesthesia Postop Eval I: Assessment Summary Airway patent Yes 06/30/24 09:34 MICROBIOLOGY QUALITY CONTROL [email or web address] Spontaneous unlabored Yes 06/30/24 09:34 MICROBIOLOGY QUALITY CONTROL [email or web address] respirations Mental status Awake,Calm 06/30/24 09:34 MICROBIOLOGY QUALITY CONTROL [email or web address] nausea No 06/30/24 09:34 MICROBIOLOGY QUALITY CONTROL [email or web address] Vomiting No 06/30/24 09:34 MICROBIOLOGY QUALITY CONTROL [email or web address] Anesthesia Postop Eval I: Fluid Summary Crystalloid volume administer 250 06/30/24 09:34 MICROBIOLOGY QUALITY CONTROL [email or web address] (ml) Colloids volume administered ( ml) Blood Product volume administered (ml) Total IV fluid infused 250 06/30/24 09:34 MICROBIOLOGY QUALITY CONTROL [email or web address] Anesthesia Postop Eval I: Summary Notes Anesthesia Complication Yes 06/30/24 09:34 MICROBIOLOGY QUALITY CONTROL [email or web address] Anesthesia Complication right nares with 06/30/24 09:34 MICROBIOLOGY QUALITY CONTROL [email or web address] Comment: epistaxis from npa Post-operative progress note Anesthesia: Postop Eval II Evaluation Mental status: Awake Pain Level: 2 nausea: No Vomiting: No 06/30/24 1016 <Electronically signed by Tawny dickson> Date _ Tawny Santos Signature: Date CC: ~ Signed [facility] Work Phone: Evaluation note* Diagnosis Aortic valve stenosis, etiology of cardiac valve disease unspecified documented in this encounter [facility] Work Phone: Evaluation note* Diagnosis Severe aortic stenosis Aortic valve disorders Coronary artery disease involving [place] coronary artery of [place] heart without angina pectoris Essential hypertension Unspecified essential hypertension Obesity (BMI 30.0-34.9) Obesity, unspecified documented in this encounter [facility] Work Phone: Evaluation note* Diagnosis Esophageal adenocarcinoma (HCC)- Primary Malignant neoplasm of esophagus, unspecified site Iron deficiency anemia due to chronic blood loss Iron deficiency anemia secondary to blood loss (chronic) LEELA (acute kidney injury) (HCC) Acute kidney failure, unspecified Other hypervolemia documented in this encounter [facility] note* Diagnosis Esophageal adenocarcinoma (HCC)- Primary Malignant neoplasm of esophagus, unspecified site 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 documented in this encounter [facility] note* Diagnosis Malignant 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)- Primary Malignant neoplasm of lower third of esophagus documented in this encounter [facility] note* Diagnosis Esophageal adenocarcinoma (HCC)- Primary Malignant neoplasm of esophagus, unspecified site 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 documented in this encounter [facility] note* Diagnosis Esophageal adenocarcinoma (HCC)- Primary Malignant neoplasm of esophagus, unspecified site documented in this encounter [facility] note* Diagnosis Esophageal adenocarcinoma (HCC)- Primary Malignant neoplasm of esophagus, unspecified site 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 documented in this encounter [facility] note* Diagnosis Malignant 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)- Primary Malignant neoplasm of lower third of esophagus Duodenal ulcer Duodenal ulcer, unspecified as acute or chronic, without hemorrhage, perforation, or obstruction documented in this encounter [facility] note* Diagnosis 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 documented in this encounter [facility] note* Diagnosis Esophageal adenocarcinoma (HCC)- Primary Malignant neoplasm of esophagus, unspecified site 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 documented in this encounter [facility] note* Diagnosis Esophageal adenocarcinoma (HCC)- Primary Malignant neoplasm of esophagus, unspecified site Acquired hypothyroidism Unspecified hypothyroidism Iron deficiency anemia due to chronic blood loss Iron deficiency anemia secondary to blood loss (chronic) documented in this encounter [facility] note* Diagnosis 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 Pleural effusion Unspecified pleural effusion documented in this encounter [facility] note* Diagnosis Malignant 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)- Primary Malignant neoplasm of lower third of esophagus Pleural effusion Unspecified pleural effusion [facility] Esophageal adenocarcinoma (HCC)- Primary Malignant neoplasm of esophagus, unspecified site 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 [facility] Diagnosis Malignant 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)- Primary Malignant neoplasm of lower third of esophagus [facility] Diagnosis Malignant 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)- Primary Malignant neoplasm of lower third of esophagus [facility]* Diagnosis 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 [facility] Diagnosis Malignant 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)- Primary Malignant neoplasm of lower third of esophagus [facility]* Diagnosis Medicare annual wellness visit, subsequent- Primary Routine general medical examination at a health care facility Essential hypertension, benign Mixed hyperlipidemia Gastroesophageal reflux disease, unspecified whether esophagitis present Iron deficiency anemia due to chronic blood loss Iron deficiency anemia secondary to blood loss (chronic) Coronary artery disease involving [place] coronary artery of [place] heart without angina pectoris Aortic valve stenosis, etiology of cardiac valve disease unspecified Uncomplicated asthma, unspecified asthma severity, unspecified whether persistent Situational depression Adjustment disorder with depressed mood Esophageal adenocarcinoma (HCC) Malignant neoplasm of esophagus, unspecified site 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 Pleural effusion Unspecified pleural effusion Balanitis Balanoposthitis Advance directive discussed with patient Other specified counseling Medication management Encounter for long-term (current) use of other medications Prostate disorder Unspecified disorder of prostate Decreased sexual desire Decreased libido Encounter for immunization Need for other specified prophylactic vaccination against single bacterial disease [facility] Diagnosis Malignant 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)- Primary Malignant neoplasm of lower third of esophagus [facility]* Diagnosis Sinus congestion- Primary Other diseases of nasal cavity and sinuses Acute cough [facility]* Diagnosis Malignant 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)- Primary Malignant neoplasm of lower third of esophagus [facility]* Diagnosis Rib injury- Primary Sprain of ribs [facility]* Diagnosis Malignant 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)- Primary Malignant neoplasm of lower third of esophagus [facility]* Diagnosis Esophageal adenocarcinoma (HCC)- Primary Malignant neoplasm of esophagus, unspecified site 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 [facility] Diagnosis Essential hypertension, benign- Primary Mixed hyperlipidemia Gastroesophageal reflux disease, unspecified whether esophagitis present Esophageal adenocarcinoma (HCC) Malignant neoplasm of esophagus, unspecified site Coronary artery disease involving [place] coronary artery of [place] heart without angina pectoris S/P CABG x 4 Postsurgical aortocoronary bypass status 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 Iron deficiency anemia due to chronic blood loss Iron deficiency anemia secondary to blood loss (chronic) Benign prostatic hyperplasia, unspecified whether lower urinary tract symptoms present [facility]* Diagnosis Malignant 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)- Primary Malignant neoplasm of lower third of esophagus documented in this encounter [facility] noteNo assessment information [facility] Work Phone: Evaluation note* Diagnosis 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 [facility]* Diagnosis 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 [facility]* Diagnosis Malignant 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)- Primary Malignant neoplasm of lower third of esophagus [facility]* Diagnosis 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 [facility]* Diagnosis APPOINTMENT CANCELLED- Primary [facility]* Diagnosis Esophageal adenocarcinoma (HCC)- Primary Malignant neoplasm of esophagus, unspecified site Compression fracture of thoracic vertebra, unspecified thoracic vertebral level, initial encounter (HCC) [facility] Diagnosis Rhinosinusitis- Primary Unspecified sinusitis (chronic) [facility] Diagnosis Malignant 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)- Primary Malignant neoplasm of lower third of esophagus [facility]* Diagnosis Malignant neoplasm of esophagus, unspecified location (HCC)- Primary [facility]* Diagnosis Malignant neoplasm of esophagus, unspecified location (HCC) Pre-op exam Preoperative examination, unspecified 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 Essential hypertension, benign Mixed hyperlipidemia Coronary artery disease involving [place] coronary artery of [place] heart without angina pectoris Gastroesophageal reflux disease, unspecified whether esophagitis present Aortic valve stenosis, etiology of cardiac valve disease unspecified Essential hypertension, benign S/P CABG x 4 Postsurgical aortocoronary bypass status Mixed hyperlipidemia Asthma Unspecified asthma GERD (gastroesophageal reflux disease) Esophageal reflux Aortic valve stenosis Aortic valve disorders 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 artery disease involving [place] coronary artery without angina pectoris Pre-op exam Preoperative examination, unspecified [facility]* Diagnosis Closed wedge compression fracture of T10 vertebra with routine healing, subsequent encounter- Primary [facility]* Diagnosis RUQ pain- Primary Abdominal pain, right upper quadrant Nausea Nausea alone Chronic midline low back pain without sciatica Intertrigo Other specified erythematous condition [facility] Diagnosis RUQ pain Abdominal pain, right upper quadrant Nausea Nausea alone [facility]* Diagnosis RUQ pain Abdominal pain, right upper quadrant Nausea Nausea alone [facility] Diagnosis Strain of thoracic paraspinal muscles excluding T1 and T2 levels, sequela- Primary Closed wedge compression fracture of T10 vertebra with routine healing, subsequent encounter 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 Kyphosis (acquired) (postural) documented [facility] encounter [facility]* Diagnosis Malignant 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)- Primary Malignant neoplasm of lower third of esophagus [facility]* Diagnosis Closed wedge compression fracture of T10 vertebra with routine healing, subsequent encounter 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 Strain of thoracic paraspinal muscles excluding T1 and T2 levels, sequela Kyphosis (acquired) (postural) documented [facility] encounter [facility]* Diagnosis Malignant 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)- Primary Malignant neoplasm of lower third of esophagus [facility] Diagnosis 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 [facility] Diagnosis Malignant 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)- Primary Malignant neoplasm of lower third of esophagus Pathological fracture of thoracic vertebra, initial encounter [facility] Diagnosis Strain of thoracic paraspinal muscles excluding T1 and T2 levels, sequela- Primary 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 Closed wedge compression fracture of T10 vertebra with routine healing, subsequent encounter Kyphosis (acquired) (postural) [facility]* Diagnosis Pathological fracture of thoracic vertebra, initial encounter [facility]* Diagnosis Pleural effusion- Primary Unspecified pleural effusion Nephrolithiasis Calculus of kidney TRIPATHI (dyspnea on exertion) Other dyspnea and respiratory abnormality Coronary artery disease involving [place] coronary artery of [place] heart without angina pectoris Essential hypertension, benign [facility] Diagnosis Elevated serum creatinine- Primary Other nonspecific findings on examination of blood Nephrolithiasis Calculus of kidney [facility]* Diagnosis Malignant 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)- Primary Malignant neoplasm of lower third of esophagus Abnormal MRI, spine Nonspecific (abnormal) findings on radiological and other examination of musculoskeletal system [facility]* Diagnosis Ascending aorta dilation (HCC)- Primary Thoracic aortic ectasia 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 Abnormal MRI, spine Nonspecific (abnormal) findings on radiological and other examination of musculoskeletal system [facility] Diagnosis Chronic pleural effusion- Primary 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 [facility] Diagnosis Essential hypertension, benign- Primary Mixed hyperlipidemia Gastroesophageal reflux disease, unspecified whether esophagitis present Coronary artery disease involving [place] coronary artery of [place] heart without angina pectoris Ascending aorta dilation (HCC) Thoracic aortic ectasia Iron deficiency anemia due to chronic blood loss Iron deficiency anemia secondary to blood loss (chronic) Uncomplicated asthma, unspecified asthma severity, unspecified whether persistent 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 Esophageal adenocarcinoma (HCC) Malignant neoplasm of esophagus, unspecified site Pleural effusion Unspecified pleural effusion Primary insomnia Persistent disorder of initiating or maintaining sleep Microscopic hematuria Medication management Encounter for long-term (current) use of other medications [facility] encounter [facility]* Diagnosis Mixed hyperlipidemia- Primary Coronary artery disease involving [place] coronary artery of [place] heart without angina pectoris [facility] encounter [facility]* Diagnosis Pleural effusion- Primary Unspecified pleural effusion Chronic heart failure with preserved ejection fraction (HCC) documented [facility] encounter [facility]* Diagnosis Malignant neoplasm of esophagus, unspecified location (HCC) Pre-op exam Preoperative examination, unspecified 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 Essential hypertension, benign Mixed hyperlipidemia Coronary artery disease involving [place] coronary artery of [place] heart without angina pectoris Gastroesophageal reflux disease, unspecified whether esophagitis present Aortic valve stenosis, etiology of cardiac valve disease unspecified Essential hypertension, benign S/P CABG x 4 Postsurgical aortocoronary bypass status Mixed hyperlipidemia Asthma Unspecified asthma GERD (gastroesophageal reflux disease) Esophageal reflux Aortic valve stenosis Aortic valve disorders 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 artery disease involving [place] coronary artery without angina pectoris Pre-op exam Preoperative examination, unspecified Pleural effusion Unspecified pleural effusion TRIPATHI (dyspnea on exertion) Other dyspnea and respiratory abnormality documented [facility] this encounter [facility]* Diagnosis Malignant neoplasm of esophagus, unspecified location (HCC) Pre-op exam Preoperative examination, unspecified 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 Essential hypertension, benign Mixed hyperlipidemia Coronary artery disease involving [place] coronary artery of [place] heart without angina pectoris Gastroesophageal reflux disease, unspecified whether esophagitis present Aortic valve stenosis, etiology of cardiac valve disease unspecified Essential hypertension, benign S/P CABG x 4 Postsurgical aortocoronary bypass status Mixed hyperlipidemia Asthma Unspecified asthma GERD (gastroesophageal reflux disease) Esophageal reflux Aortic valve stenosis Aortic valve disorders 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 artery disease involving [place] coronary artery without angina pectoris Excessive bleeding- Primary [facility]* Diagnosis Rib injury Sprain of ribs Malignant neoplasm of esophagus, unspecified location (HCC) Pre-op exam Preoperative examination, unspecified 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 Essential hypertension, benign Mixed hyperlipidemia Coronary artery disease involving [place] coronary artery of [place] heart without angina pectoris Gastroesophageal reflux disease, unspecified whether esophagitis present Aortic valve stenosis, etiology of cardiac valve disease unspecified [facility]* Diagnosis Malignant neoplasm of esophagus, unspecified location (HCC) Pre-op exam Preoperative examination, unspecified 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 Essential hypertension, benign Mixed hyperlipidemia Coronary artery disease involving [place] coronary artery of [place] heart without angina pectoris Gastroesophageal reflux disease, unspecified whether esophagitis present Aortic valve stenosis, etiology of cardiac valve disease unspecified Essential hypertension, benign S/P CABG x 4 Postsurgical aortocoronary bypass status Mixed hyperlipidemia Asthma Unspecified asthma GERD (gastroesophageal reflux disease) Esophageal reflux Aortic valve stenosis Aortic valve disorders 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 artery disease involving [place] coronary artery without angina pectoris Pressure injury of buttock, stage 2, unspecified laterality (HCC)- Primary CKD (chronic kidney disease) stage 4, GFR 15-29 ml/min (HCC) Chronic kidney disease, Stage IV (severe) 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 [facility] Diagnosis Malignant neoplasm of esophagus, unspecified location (HCC) Pre-op exam Preoperative examination, unspecified 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 Essential hypertension, benign Mixed hyperlipidemia Coronary artery disease involving [place] coronary artery of [place] heart without angina pectoris Gastroesophageal reflux disease, unspecified whether esophagitis present Aortic valve stenosis, etiology of cardiac valve disease unspecified Essential hypertension, benign S/P CABG x 4 Postsurgical aortocoronary bypass status Mixed hyperlipidemia Asthma Unspecified asthma GERD (gastroesophageal reflux disease) Esophageal reflux Aortic valve stenosis Aortic valve disorders 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 artery disease involving [place] coronary artery without angina pectoris Heart failure, unspecified HF chronicity, unspecified heart failure type (HCC)- Primary [facility] Diagnosis Malignant neoplasm of esophagus, unspecified location (HCC) Pre-op exam Preoperative examination, unspecified 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 Essential hypertension, benign Mixed hyperlipidemia Coronary artery disease involving [place] coronary artery of [place] heart without angina pectoris Gastroesophageal reflux disease, unspecified whether esophagitis present Aortic valve stenosis, etiology of cardiac valve disease unspecified Essential hypertension, benign S/P CABG x 4 Postsurgical aortocoronary bypass status Mixed hyperlipidemia Asthma Unspecified asthma GERD (gastroesophageal reflux disease) Esophageal reflux Aortic valve stenosis Aortic valve disorders 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 artery disease involving [place] coronary artery without angina pectoris Anemia, unspecified type- Primary [facility] Diagnosis Malignant neoplasm of esophagus, unspecified location (HCC) Pre-op exam Preoperative examination, unspecified 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 Essential hypertension, benign Mixed hyperlipidemia Coronary artery disease involving [place] coronary artery of [place] heart without angina pectoris Gastroesophageal reflux disease, unspecified whether esophagitis present Aortic valve stenosis, etiology of cardiac valve disease unspecified Essential hypertension, benign S/P CABG x 4 Postsurgical aortocoronary bypass status Mixed hyperlipidemia Asthma Unspecified asthma GERD (gastroesophageal reflux disease) Esophageal reflux Aortic valve stenosis Aortic valve disorders 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 artery disease involving [place] coronary artery without angina pectoris Malignant 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)- Primary Malignant neoplasm of lower third of esophagus Early satiety Nausea Nausea alone Anemia, unspecified type [facility] Diagnosis Malignant neoplasm of esophagus, unspecified location (HCC) Pre-op exam Preoperative examination, unspecified 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 Essential hypertension, benign Mixed hyperlipidemia Coronary artery disease involving [place] coronary artery of [place] heart without angina pectoris Gastroesophageal reflux disease, unspecified whether esophagitis present Aortic valve stenosis, etiology of cardiac valve disease unspecified Essential hypertension, benign S/P CABG x 4 Postsurgical aortocoronary bypass status Mixed hyperlipidemia Asthma Unspecified asthma GERD (gastroesophageal reflux disease) Esophageal reflux Aortic valve stenosis Aortic valve disorders 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 artery disease involving [place] coronary artery without angina pectoris Healing pressure injury, stage 1- Primary [facility] Diagnosis Malignant neoplasm of esophagus, unspecified location (HCC) Pre-op exam Preoperative examination, unspecified 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 Essential hypertension, benign Mixed hyperlipidemia Coronary artery disease involving [place] coronary artery of [place] heart without angina pectoris Gastroesophageal reflux disease, unspecified whether esophagitis present Aortic valve stenosis, etiology of cardiac valve disease unspecified Essential hypertension, benign S/P CABG x 4 Postsurgical aortocoronary bypass status Mixed hyperlipidemia Asthma Unspecified asthma GERD (gastroesophageal reflux disease) Esophageal reflux Aortic valve stenosis Aortic valve disorders 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 artery disease involving [place] 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 Early satiety Nausea Nausea alone [facility] Diagnosis Malignant neoplasm of esophagus, unspecified location (HCC) Pre-op exam Preoperative examination, unspecified 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 Essential hypertension, benign Mixed hyperlipidemia Coronary artery disease involving [place] coronary artery of [place] heart without angina pectoris Gastroesophageal reflux disease, unspecified whether esophagitis present Aortic valve stenosis, etiology of cardiac valve disease unspecified Essential hypertension, benign S/P CABG x 4 Postsurgical aortocoronary bypass status Mixed hyperlipidemia Asthma Unspecified asthma GERD (gastroesophageal reflux disease) Esophageal reflux Aortic valve stenosis Aortic valve disorders 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 artery disease involving [place] 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 Early satiety Nausea Nausea alone [facility] Diagnosis Malignant neoplasm of esophagus, unspecified location (HCC) Pre-op exam Preoperative examination, unspecified 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 Essential hypertension, benign Mixed hyperlipidemia Coronary artery disease involving [place] coronary artery of [place] heart without angina pectoris Gastroesophageal reflux disease, unspecified whether esophagitis present Aortic valve stenosis, etiology of cardiac valve disease unspecified Essential hypertension, benign S/P CABG x 4 Postsurgical aortocoronary bypass status Mixed hyperlipidemia Asthma Unspecified asthma GERD (gastroesophageal reflux disease) Esophageal reflux Aortic valve stenosis Aortic valve disorders 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 artery disease involving [place] coronary artery without angina pectoris Pleural effusion- Primary Unspecified pleural effusion Lung nodules Other nonspecific abnormal finding of lung field Seasonal allergies Allergic rhinitis, cause unspecified Oral thrush Candidiasis of mouth [facility] Diagnosis Malignant neoplasm of esophagus, unspecified location (HCC) Pre-op exam Preoperative examination, unspecified 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 Essential hypertension, benign Mixed hyperlipidemia Coronary artery disease involving [place] coronary artery of [place] heart without angina pectoris Gastroesophageal reflux disease, unspecified whether esophagitis present Aortic valve stenosis, etiology of cardiac valve disease unspecified Essential hypertension, benign S/P CABG x 4 Postsurgical aortocoronary bypass status Mixed hyperlipidemia Asthma Unspecified asthma GERD (gastroesophageal reflux disease) Esophageal reflux Aortic valve stenosis Aortic valve disorders 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 artery disease involving [place] coronary artery without angina pectoris Pleural effusion Unspecified pleural effusion [facility] Diagnosis Malignant neoplasm of esophagus, unspecified location (HCC) Pre-op exam Preoperative examination, unspecified 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 Essential hypertension, benign Mixed hyperlipidemia Coronary artery disease involving [place] coronary artery of [place] heart without angina pectoris Gastroesophageal reflux disease, unspecified whether esophagitis present Aortic valve stenosis, etiology of cardiac valve disease unspecified Essential hypertension, benign S/P CABG x 4 Postsurgical aortocoronary bypass status Mixed hyperlipidemia Asthma Unspecified asthma GERD (gastroesophageal reflux disease) Esophageal reflux Aortic valve stenosis Aortic valve disorders 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 artery disease involving [place] coronary artery without angina pectoris Pleural effusion Unspecified pleural effusion [facility] Diagnosis Malignant neoplasm of esophagus, unspecified location (HCC) Pre-op exam Preoperative examination, unspecified 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 Essential hypertension, benign Mixed hyperlipidemia Coronary artery disease involving [place] coronary artery of [place] heart without angina pectoris Gastroesophageal reflux disease, unspecified whether esophagitis present Aortic valve stenosis, etiology of cardiac valve disease unspecified Essential hypertension, benign S/P CABG x 4 Postsurgical aortocoronary bypass status Mixed hyperlipidemia Asthma Unspecified asthma GERD (gastroesophageal reflux disease) Esophageal reflux Aortic valve stenosis Aortic valve disorders 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 artery disease involving [place] coronary artery without angina pectoris Closed intracapsular fracture of left femur with routine healing- Primary Aftercare for healing traumatic fracture of hip [facility]* Diagnosis Malignant neoplasm of esophagus, unspecified location (HCC) Pre-op exam Preoperative examination, unspecified 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 Essential hypertension, benign Mixed hyperlipidemia Coronary artery disease involving [place] coronary artery of [place] heart without angina pectoris Gastroesophageal reflux disease, unspecified whether esophagitis present Aortic valve stenosis, etiology of cardiac valve disease unspecified Essential hypertension, benign S/P CABG x 4 Postsurgical aortocoronary bypass status Mixed hyperlipidemia Asthma Unspecified asthma GERD (gastroesophageal reflux disease) Esophageal reflux Aortic valve stenosis Aortic valve disorders 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 artery disease involving [place] coronary artery without angina pectoris Medicare annual wellness visit, subsequent- Primary Routine general medical examination at a health care facility Essential hypertension, benign Mixed hyperlipidemia Coronary artery disease involving [place] coronary artery of [place] heart without angina pectoris Aortic valve stenosis, etiology of cardiac valve disease unspecified Ascending aorta dilation (HCC) Thoracic aortic ectasia Uncomplicated asthma, unspecified asthma severity, unspecified whether persistent CKD (chronic kidney disease) stage 4, GFR 15-29 ml/min (HCC) Chronic kidney disease, Stage IV (severe) Gastroesophageal reflux disease, unspecified whether esophagitis present Iron deficiency anemia due to chronic blood loss Iron deficiency anemia secondary to blood loss (chronic) Situational depression Adjustment disorder with depressed mood Esophageal adenocarcinoma (HCC) Malignant neoplasm of esophagus, unspecified site 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 Primary insomnia Persistent disorder of initiating or maintaining sleep Closed wedge compression fracture of T10 vertebra with routine healing, subsequent encounter Pressure injury of buttock, stage 2, unspecified laterality (HCC) Elevated blood sugar Other abnormal glucose Cold intolerance Other general symptoms Advance directive discussed with patient Other specified counseling Encounter for screening examination for other mental health and behavioral disorders Prostate disorder Unspecified disorder of prostate Medication management Encounter for long-term (current) use of other medications documented in this encounter [facility] note* Diagnosis Malignant neoplasm of esophagus, unspecified location (HCC) Pre-op exam Preoperative examination, unspecified 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 Essential hypertension, benign Mixed hyperlipidemia Coronary artery disease involving [place] coronary artery of [place] heart without angina pectoris Gastroesophageal reflux disease, unspecified whether esophagitis present Aortic valve stenosis, etiology of cardiac valve disease unspecified Essential hypertension, benign S/P CABG x 4 Postsurgical aortocoronary bypass status Mixed hyperlipidemia Asthma Unspecified asthma GERD (gastroesophageal reflux disease) Esophageal reflux Aortic valve stenosis Aortic valve disorders 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 artery disease involving [place] 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 [facility]* Diagnosis Malignant neoplasm of esophagus, unspecified location (HCC) Pre-op exam Preoperative examination, unspecified 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 Essential hypertension, benign Mixed hyperlipidemia Coronary artery disease involving [place] coronary artery of [place] heart without angina pectoris Gastroesophageal reflux disease, unspecified whether esophagitis present Aortic valve stenosis, etiology of cardiac valve disease unspecified Essential hypertension, benign S/P CABG x 4 Postsurgical aortocoronary bypass status Mixed hyperlipidemia Asthma Unspecified asthma GERD (gastroesophageal reflux disease) Esophageal reflux 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 note* Diagnosis Malignant neoplasm of esophagus, unspecified location (HCC) Pre-op exam Preoperative examination, unspecified 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 Essential hypertension, benign Mixed hyperlipidemia Coronary artery disease involving [place] coronary artery of [place] heart without angina pectoris Gastroesophageal reflux disease, unspecified whether esophagitis present Aortic valve stenosis, etiology of cardiac valve disease unspecified Essential hypertension, benign S/P CABG x 4 Postsurgical aortocoronary bypass status Mixed hyperlipidemia Asthma Unspecified asthma GERD (gastroesophageal reflux disease) Esophageal reflux 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 artery disease involving [place] coronary artery without angina pectoris Secondary infection of skin- Primary Other specified local infections of skin and subcutaneous tissue Dog scratch Other and unspecified superficial injury of other, multiple, and unspecified sites, without mention of infection Need for tetanus booster Need for prophylactic vaccination with tetanus toxoid alone [facility]* Diagnosis Malignant neoplasm of esophagus, unspecified location (HCC) Pre-op exam Preoperative examination, unspecified 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 Essential hypertension, benign Mixed hyperlipidemia Coronary artery disease involving [place] coronary artery of [place] heart without angina pectoris Gastroesophageal reflux disease, unspecified whether esophagitis present Aortic valve stenosis, etiology of cardiac valve disease unspecified Essential hypertension, benign S/P CABG x 4 Postsurgical aortocoronary bypass status Mixed hyperlipidemia Asthma Unspecified asthma GERD (gastroesophageal reflux disease) Esophageal reflux 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 artery disease involving [place] 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 Closed wedge compression fracture of T10 vertebra with delayed healing, subsequent encounter [facility] Diagnosis Malignant neoplasm of esophagus, unspecified location (HCC) Pre-op exam Preoperative examination, unspecified 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 Essential hypertension, benign Mixed hyperlipidemia Coronary artery disease involving [place] coronary artery of [place] heart without angina pectoris Gastroesophageal reflux disease, unspecified whether esophagitis present Aortic valve stenosis, etiology of cardiac valve disease unspecified Essential hypertension, benign S/P CABG x 4 Postsurgical aortocoronary bypass status Mixed hyperlipidemia Asthma Unspecified asthma GERD (gastroesophageal reflux disease) Esophageal reflux 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 artery disease involving [place] coronary artery without angina pectoris ESRD on dialysis (HCC)- Primary End stage renal disease Pre-transplant evaluation for ESRD (end stage renal disease) Other specified pre-operative examination [facility] Diagnosis Malignant neoplasm of esophagus, unspecified location (HCC) Pre-op exam Preoperative examination, unspecified 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 Essential hypertension, benign Mixed hyperlipidemia Coronary artery disease involving [place] coronary artery of [place] heart without angina pectoris Gastroesophageal reflux disease, unspecified whether esophagitis present Aortic valve stenosis, etiology of cardiac valve disease unspecified Essential hypertension, benign S/P CABG x 4 Postsurgical aortocoronary bypass status Mixed hyperlipidemia Asthma Unspecified asthma GERD (gastroesophageal reflux disease) Esophageal reflux 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 artery disease involving [place] coronary artery without angina pectoris Pre-transplant evaluation for kidney transplant- Primary Other specified pre-operative examination [facility] Diagnosis Malignant neoplasm of esophagus, unspecified location (HCC) Pre-op exam Preoperative examination, unspecified 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 Essential hypertension, benign Mixed hyperlipidemia Coronary artery disease involving [place] coronary artery of [place] heart without angina pectoris Gastroesophageal reflux disease, unspecified whether esophagitis present Aortic valve stenosis, etiology of cardiac valve disease unspecified Essential hypertension, benign S/P CABG x 4 Postsurgical aortocoronary bypass status Mixed hyperlipidemia Asthma Unspecified asthma GERD (gastroesophageal reflux disease) Esophageal reflux 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 note* Diagnosis Malignant neoplasm of esophagus, unspecified location (HCC) Pre-op exam Preoperative examination, unspecified 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 Essential hypertension, benign Mixed hyperlipidemia Coronary artery disease involving [place] coronary artery of [place] heart without angina pectoris Gastroesophageal reflux disease, unspecified whether esophagitis present Aortic valve stenosis, etiology of cardiac valve disease unspecified Essential hypertension, benign S/P CABG x 4 Postsurgical aortocoronary bypass status Mixed hyperlipidemia Asthma Unspecified asthma GERD (gastroesophageal reflux disease) Esophageal reflux 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 note* Diagnosis Malignant neoplasm of esophagus, unspecified location (HCC) Pre-op exam Preoperative examination, unspecified 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 Essential hypertension, benign Mixed hyperlipidemia Coronary artery disease involving [place] coronary artery of [place] heart without angina pectoris Gastroesophageal reflux disease, unspecified whether esophagitis present Aortic valve stenosis, etiology of cardiac valve disease unspecified Essential hypertension, benign S/P CABG x 4 Postsurgical aortocoronary bypass status Mixed hyperlipidemia Asthma Unspecified asthma GERD (gastroesophageal reflux disease) Esophageal reflux 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 artery disease involving [place] coronary artery without angina pectoris Pre-transplant evaluation for kidney transplant- Primary Other specified pre-operative examination [facility] Diagnosis Malignant neoplasm of esophagus, unspecified location (HCC) Pre-op exam Preoperative examination, unspecified 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 Essential hypertension, benign Mixed hyperlipidemia Coronary artery disease involving [place] coronary artery of [place] heart without angina pectoris Gastroesophageal reflux disease, unspecified whether esophagitis present Aortic valve stenosis, etiology of cardiac valve disease unspecified Essential hypertension, benign S/P CABG x 4 Postsurgical aortocoronary bypass status Mixed hyperlipidemia Asthma Unspecified asthma GERD (gastroesophageal reflux disease) Esophageal reflux 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 artery disease involving [place] coronary artery without angina pectoris Pre-transplant evaluation for kidney transplant- Primary Other specified pre-operative examination Renal failure, unspecified chronicity Preoperative examination Preoperative examination, unspecified Special screening for malignant neoplasm of prostate Encounter for screening for human immunodeficiency virus (HIV) Special screening examination for other specified viral diseases Other complications of anesthesia, initial encounter [facility] Diagnosis Malignant neoplasm of esophagus, unspecified location (HCC) Pre-op exam Preoperative examination, unspecified 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 Essential hypertension, benign Mixed hyperlipidemia Coronary artery disease involving [place] coronary artery of [place] heart without angina pectoris Gastroesophageal reflux disease, unspecified whether esophagitis present Aortic valve stenosis, etiology of cardiac valve disease unspecified Essential hypertension, benign S/P CABG x 4 Postsurgical aortocoronary bypass status Mixed hyperlipidemia Asthma Unspecified asthma GERD (gastroesophageal reflux disease) Esophageal reflux 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 artery disease involving [place] coronary artery without angina pectoris Pre-transplant evaluation for kidney transplant- Primary Other specified pre-operative examination [facility] Diagnosis Malignant neoplasm of esophagus, unspecified location (HCC) Pre-op exam Preoperative examination, unspecified 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 Essential hypertension, benign Mixed hyperlipidemia Coronary artery disease involving [place] coronary artery of [place] heart without angina pectoris Gastroesophageal reflux disease, unspecified whether esophagitis present Aortic valve stenosis, etiology of cardiac valve disease unspecified Essential hypertension, benign S/P CABG x 4 Postsurgical aortocoronary bypass status Mixed hyperlipidemia Asthma Unspecified asthma GERD (gastroesophageal reflux disease) Esophageal reflux 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 artery disease involving [place] coronary artery without angina pectoris Pre-transplant evaluation for kidney transplant- Primary Other specified pre-operative examination documented in this encounter [facility] note* Diagnosis Malignant neoplasm of esophagus, unspecified location (HCC) Pre-op exam Preoperative examination, unspecified 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 Essential hypertension, benign Mixed hyperlipidemia Coronary artery disease involving [place] coronary artery of [place] heart without angina pectoris Gastroesophageal reflux disease, unspecified whether esophagitis present Aortic valve stenosis, etiology of cardiac valve disease unspecified Essential hypertension, benign S/P CABG x 4 Postsurgical aortocoronary bypass status Mixed hyperlipidemia Asthma Unspecified asthma GERD (gastroesophageal reflux disease) Esophageal reflux 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 artery disease involving [place] coronary artery without angina pectoris Pre-transplant evaluation for kidney transplant- Primary Other specified pre-operative examination ESRD on dialysis (HCC) End stage renal disease Hypertension, unspecified type S/P CABG x 4 Postsurgical aortocoronary bypass status S/P TAVR (transcatheter aortic valve replacement) Heart valve replaced by other means Esophageal adenocarcinoma (HCC) Malignant neoplasm of esophagus, unspecified site Benign prostatic hyperplasia, unspecified whether lower urinary tract symptoms present documented in this encounter [facility] note* Diagnosis Malignant neoplasm of esophagus, unspecified location (HCC) Pre-op exam Preoperative examination, unspecified 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 Essential hypertension, benign Mixed hyperlipidemia Coronary artery disease involving [place] coronary artery of [place] heart without angina pectoris Gastroesophageal reflux disease, unspecified whether esophagitis present Aortic valve stenosis, etiology of cardiac valve disease unspecified Essential hypertension, benign S/P CABG x 4 Postsurgical aortocoronary bypass status Mixed hyperlipidemia Asthma Unspecified asthma GERD (gastroesophageal reflux disease) Esophageal reflux 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 artery disease involving [place] coronary artery without angina pectoris Gynecomastia- Primary Hypertrophy of breast Subareolar mass of right breast Esophageal adenocarcinoma (HCC) Malignant neoplasm of esophagus, unspecified site Pain, unspecified Neoplasm of uncertain behavior of areola of right male breast Family history of breast cancer Family history of malignant neoplasm of breast Family history of ovarian cancer Family history of malignant neoplasm of ovary Family history of malignant neoplasm of ovary [facility] Diagnosis Malignant neoplasm of esophagus, unspecified location (HCC) Pre-op exam Preoperative examination, unspecified 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 Essential hypertension, benign Mixed hyperlipidemia Coronary artery disease involving [place] coronary artery of [place] heart without angina pectoris Gastroesophageal reflux disease, unspecified whether esophagitis present Aortic valve stenosis, etiology of cardiac valve disease unspecified Essential hypertension, benign S/P CABG x 4 Postsurgical aortocoronary bypass status Mixed hyperlipidemia Asthma (HCC) Unspecified asthma GERD (gastroesophageal reflux disease) Esophageal reflux 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 artery disease involving [place] coronary artery without angina pectoris Dog scratch- Primary Other and unspecified superficial injury of other, multiple, and unspecified sites, without mention of infection Visit for wound check Encounter for other specified aftercare [facility] Diagnosis Malignant neoplasm of esophagus, unspecified location (HCC) Pre-op exam Preoperative examination, unspecified 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 Essential hypertension, benign Mixed hyperlipidemia Coronary artery disease involving [place] coronary artery of [place] heart without angina pectoris Gastroesophageal reflux disease, unspecified whether esophagitis present Aortic valve stenosis, etiology of cardiac valve disease unspecified Essential hypertension, benign S/P CABG x 4 Postsurgical aortocoronary bypass status Mixed hyperlipidemia Asthma (HCC) Unspecified asthma GERD (gastroesophageal reflux disease) Esophageal reflux 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 artery disease involving [place] coronary artery without angina pectoris Acute bilateral low back pain without sciatica- Primary Acute bilateral low back pain without sciatica [facility] Diagnosis Malignant neoplasm of esophagus, unspecified location (HCC) Pre-op exam Preoperative examination, unspecified 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 Essential hypertension, benign Mixed hyperlipidemia Coronary artery disease involving [place] coronary artery of [place] heart without angina pectoris Gastroesophageal reflux disease, unspecified whether esophagitis present Aortic valve stenosis, etiology of cardiac valve disease unspecified Essential hypertension, benign S/P CABG x 4 Postsurgical aortocoronary bypass status Mixed hyperlipidemia Asthma (HCC) Unspecified asthma GERD (gastroesophageal reflux disease) Esophageal reflux 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 artery disease involving [place] coronary artery without angina pectoris Acute bilateral low back pain without sciatica [facility] Diagnosis Malignant neoplasm of esophagus, unspecified location (HCC) Pre-op exam Preoperative examination, unspecified 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 Essential hypertension, benign Mixed hyperlipidemia Coronary artery disease involving [place] coronary artery of [place] heart without angina pectoris Gastroesophageal reflux disease, unspecified whether esophagitis present Aortic valve stenosis, etiology of cardiac valve disease unspecified Essential hypertension, benign S/P CABG x 4 Postsurgical aortocoronary bypass status Mixed hyperlipidemia Asthma (HCC) Unspecified asthma GERD (gastroesophageal reflux disease) Esophageal reflux 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 artery disease involving [place] coronary artery without angina pectoris Hyperprolactinemia (HCC)- Primary Other and unspecified anterior pituitary hyperfunction Abnormal FSH level Unspecified endocrine disorder High serum luteinizing hormone (LH) Hyperprolactinemia (HCC) Other and unspecified anterior pituitary hyperfunction Abnormal FSH level Unspecified endocrine disorder High serum luteinizing hormone (LH) [facility] Diagnosis Malignant neoplasm of esophagus, unspecified location (HCC) Pre-op exam Preoperative examination, unspecified 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 Essential hypertension, benign Mixed hyperlipidemia Coronary artery disease involving [place] coronary artery of [place] heart without angina pectoris Gastroesophageal reflux disease, unspecified whether esophagitis present Aortic valve stenosis, etiology of cardiac valve disease unspecified Essential hypertension, benign S/P CABG x 4 Postsurgical aortocoronary bypass status Mixed hyperlipidemia Asthma (HCC) Unspecified asthma GERD (gastroesophageal reflux disease) Esophageal reflux 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 artery disease involving [place] coronary artery without angina pectoris Hyperprolactinemia (HCC) Other and unspecified anterior pituitary hyperfunction Abnormal FSH level Unspecified endocrine disorder High serum luteinizing hormone (LH) [facility] Diagnosis Malignant neoplasm of esophagus, unspecified location (HCC) Pre-op exam Preoperative examination, unspecified 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 Essential hypertension, benign Mixed hyperlipidemia Coronary artery disease involving [place] coronary artery of [place] heart without angina pectoris Gastroesophageal reflux disease, unspecified whether esophagitis present Aortic valve stenosis, etiology of cardiac valve disease unspecified Essential hypertension, benign S/P CABG x 4 Postsurgical aortocoronary bypass status Mixed hyperlipidemia Asthma (HCC) Unspecified asthma GERD (gastroesophageal reflux disease) Esophageal reflux 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 artery disease involving [place] coronary artery without angina pectoris Skin tear of left forearm without complication, initial encounter- Primary [facility] Diagnosis Malignant neoplasm of esophagus, unspecified location (HCC) Pre-op exam Preoperative examination, unspecified 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 Essential hypertension, benign Mixed hyperlipidemia Coronary artery disease involving [place] coronary artery of [place] heart without angina pectoris Gastroesophageal reflux disease, unspecified whether esophagitis present Aortic valve stenosis, etiology of cardiac valve disease unspecified Essential hypertension, benign S/P CABG x 4 Postsurgical aortocoronary bypass status Mixed hyperlipidemia Asthma (HCC) Unspecified asthma GERD (gastroesophageal reflux disease) Esophageal reflux 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 artery disease involving [place] coronary artery without angina pectoris History of cerebral infarction- Primary Transient ischemic attack (TIA), and cerebral infarction without residual deficits Gynecomastia Hypertrophy of breast documented in this encounter [facility] note* Diagnosis Malignant neoplasm of esophagus, unspecified location (HCC) Pre-op exam Preoperative examination, unspecified 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 Essential hypertension, benign Mixed hyperlipidemia Coronary artery disease involving [place] coronary artery of [place] heart without angina pectoris Gastroesophageal reflux disease, unspecified whether esophagitis present Aortic valve stenosis, etiology of cardiac valve disease unspecified Essential hypertension, benign S/P CABG x 4 Postsurgical aortocoronary bypass status Mixed hyperlipidemia Asthma (HCC) Unspecified asthma GERD (gastroesophageal reflux disease) Esophageal reflux 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 artery disease involving [place] coronary artery without angina pectoris Gynecomastia- Primary Hypertrophy of breast Elevated prolactin level Unspecified endocrine disorder Follicle stimulating hormone excess Other and unspecified anterior pituitary hyperfunction Abnormal pituitary luteinizing hormone (LH) [facility] Diagnosis Malignant neoplasm of esophagus, unspecified location (HCC) Pre-op exam Preoperative examination, unspecified 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 Essential hypertension, benign Mixed hyperlipidemia Coronary artery disease involving [place] coronary artery of [place] heart without angina pectoris Gastroesophageal reflux disease, unspecified whether esophagitis present Aortic valve stenosis, etiology of cardiac valve disease unspecified Essential hypertension, benign S/P CABG x 4 Postsurgical aortocoronary bypass status Mixed hyperlipidemia Asthma (HCC) Unspecified asthma GERD (gastroesophageal reflux disease) Esophageal reflux 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 artery disease involving [place] coronary artery without angina pectoris Essential hypertension, benign- Primary Mixed hyperlipidemia Coronary artery disease involving [place] coronary artery of [place] heart without angina pectoris Esophageal adenocarcinoma (HCC) Malignant neoplasm of esophagus, unspecified site 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 CKD (chronic kidney disease) stage 4, GFR 15-29 ml/min (HCC) Chronic kidney disease, Stage IV (severe) 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 Benign prostatic hyperplasia, unspecified whether lower urinary tract symptoms present Acute bilateral low back pain without sciatica Compression fracture of lumbar vertebra with routine healing, unspecified lumbar vertebral level, subsequent encounter Lumbar back pain Lumbago Closed wedge compression fracture of T10 vertebra with routine healing, subsequent encounter S/P TAVR (transcatheter aortic valve replacement) Heart valve replaced by other means Uncomplicated asthma, unspecified asthma severity, unspecified whether persistent (HCC) Iron malabsorption (HCC) Other specified intestinal malabsorption [facility] Diagnosis Malignant neoplasm of esophagus, unspecified location (HCC) Pre-op exam Preoperative examination, unspecified 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 Essential hypertension, benign Mixed hyperlipidemia Coronary artery disease involving [place] coronary artery of [place] heart without angina pectoris Gastroesophageal reflux disease, unspecified whether esophagitis present Aortic valve stenosis, etiology of cardiac valve disease unspecified Essential hypertension, benign S/P CABG x 4 Postsurgical aortocoronary bypass status Mixed hyperlipidemia Asthma (HCC) Unspecified asthma GERD (gastroesophageal reflux disease) Esophageal reflux 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 artery disease involving [place] coronary artery without angina pectoris Lumbar back pain Lumbago [facility] Diagnosis Malignant neoplasm of esophagus, unspecified location (HCC) Pre-op exam Preoperative examination, unspecified 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 Essential hypertension, benign Mixed hyperlipidemia Coronary artery disease involving [place] coronary artery of [place] heart without angina pectoris Gastroesophageal reflux disease, unspecified whether esophagitis present Aortic valve stenosis, etiology of cardiac valve disease unspecified Essential hypertension, benign S/P CABG x 4 Postsurgical aortocoronary bypass status Mixed hyperlipidemia Asthma (HCC) Unspecified asthma GERD (gastroesophageal reflux disease) Esophageal reflux 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 artery disease involving [place] coronary artery without angina pectoris Compression fracture of L5 vertebra with routine healing, subsequent encounter- Primary [facility] Diagnosis Malignant neoplasm of esophagus, unspecified location (HCC) Pre-op exam Preoperative examination, unspecified 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 Essential hypertension, benign Mixed hyperlipidemia Coronary artery disease involving [place] coronary artery of [place] heart without angina pectoris Gastroesophageal reflux disease, unspecified whether esophagitis present Aortic valve stenosis, etiology of cardiac valve disease unspecified Essential hypertension, benign S/P CABG x 4 Postsurgical aortocoronary bypass status Mixed hyperlipidemia Asthma (HCC) Unspecified asthma GERD (gastroesophageal reflux disease) Esophageal reflux 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 artery disease involving [place] coronary artery without angina pectoris Gynecomastia Hypertrophy of breast Elevated prolactin level Unspecified endocrine disorder Follicle stimulating hormone excess Other and unspecified anterior pituitary hyperfunction [facility] Diagnosis Malignant neoplasm of esophagus, unspecified location (HCC) Pre-op exam Preoperative examination, unspecified 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 Essential hypertension, benign Mixed hyperlipidemia Coronary artery disease involving [place] coronary artery of [place] heart without angina pectoris Gastroesophageal reflux disease, unspecified whether esophagitis present Aortic valve stenosis, etiology of cardiac valve disease unspecified Essential hypertension, benign S/P CABG x 4 Postsurgical aortocoronary bypass status Mixed hyperlipidemia Asthma (HCC) Unspecified asthma GERD (gastroesophageal reflux disease) Esophageal reflux 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 artery disease involving [place] 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 documented in this encounter [facility] note* Diagnosis Malignant neoplasm of esophagus, unspecified location (HCC) Pre-op exam Preoperative examination, unspecified 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 Essential hypertension, benign Mixed hyperlipidemia Coronary artery disease involving [place] coronary artery of [place] heart without angina pectoris Gastroesophageal reflux disease, unspecified whether esophagitis present Aortic valve stenosis, etiology of cardiac valve disease unspecified Essential hypertension, benign S/P CABG x 4 Postsurgical aortocoronary bypass status Mixed hyperlipidemia Asthma (HCC) Unspecified asthma GERD (gastroesophageal reflux disease) Esophageal reflux 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 artery disease involving [place] coronary artery without angina pectoris Malignant neoplasm of lower third of esophagus (HCC)- Primary Malignant neoplasm of lower third of esophagus Compression fx, lumbar spine, closed, initial encounter ([facility]) Collapsed vertebra, not elsewhere classified, lumbar region, initial encounter for fracture ([facility]) documented in this encounter [facility] note* Diagnosis Malignant neoplasm of esophagus, unspecified location (HCC) Pre-op exam Preoperative examination, unspecified 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 Essential hypertension, benign Mixed hyperlipidemia Coronary artery disease involving [place] coronary artery of [place] heart without angina pectoris Gastroesophageal reflux disease, unspecified whether esophagitis present Aortic valve stenosis, etiology of cardiac valve disease unspecified Essential hypertension, benign S/P CABG x 4 Postsurgical aortocoronary bypass status Mixed hyperlipidemia Asthma (HCC) Unspecified asthma GERD (gastroesophageal reflux disease) Esophageal reflux 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 artery disease involving [place] coronary artery without angina pectoris Chronic sinusitis, unspecified location- Primary Seasonal allergic rhinitis, unspecified trigger documented in this encounter [facility] for referral (narrative)* Outpatient Procedure (Routine) - Authorized Specialty Diagnoses / Procedures Referred By Contac t Referred To Contact [facility] Diagnoses Malignant neoplasm of lower third of esophagus (HCC) Procedures EGD DIAGNOSTIC ESOPHAGOGASTRODUODENOSC OPY TRANSORAL DIAGNOSTIC Renetta Radford MD [address] [place] [address] [facility] [address] [place] [address] Referral ID Status Reason Start Date Expiration Date Visits Requested Visits Authorized [id number] Authorized Auto-Generat ed Referral 08/04/2021 08/04/2022 1 1 [facility] for referral (narrative)* Outpatient Procedure (Routine) - Authorized Specialty Diagnoses / Procedures Referred By Contac t Referred To Contact [facility] Diagnoses Malignant neoplasm of lower third of esophagus (HCC) Procedures EGD DIAGNOSTIC ESOPHAGOGASTRODUODENOSC OPY TRANSORAL DIAGNOSTIC Queta Gleason, ADALGISA.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 [address] [place] [address] [facility] [address] [place], [place] [id number] Referral ID Status Reason Start Date Expiration Date Visits Requested Visits Authorized [id number] Authorized Auto-Generat ed Referral 09/07/2021 09/07/2022 1 1 [facility] for referral (narrative)* Outpatient Procedure (Routine) - Closed Specialty Diagnoses / Procedures Referred By Contac t Referred To Contact [facility] Diagnoses Malignant neoplasm of lower third of esophagus (HCC) Procedures EGD DIAGNOSTIC ESOPHAGOGASTRODUODENOSC OPY TRANSORAL DIAGNOSTIC Renetta Radford MD [address] [place] [address] [facility] [address] [place] [address] Referral ID Status Reason Start Date Expiration Date V isits Requested Visits Authorized [id number] Closed Auto-Generate d Referral 08/04/2021 08/04/2022 1 1 [facility] for referral (narrative)* Outpatient Procedure (Routine) - Pending Review Specialty Diagnoses / Procedures Referred By Contac t Referred To Contact [facility] Diagnoses Malignant neoplasm of lower third of esophagus (HCC) Procedures EGD DIAGNOSTIC ESOPHAGOGASTRODUODENOSC OPY TRANSORAL DIAGNOSTIC Queta Gleason APRN.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 [address] [place] [address] [facility] [address] [place] [address] Referral ID Status Reason Start Date Expiration Date Visits Requested Visits Authorized [id number] Pending Review Auto-Generat ed Referral 11/09/2021 11/09/2022 1 1 [facility] for referral (narrative)* Outpatient Procedure (Routine) - Closed Specialty Diagnoses / Procedures Referred By Contac t Referred To Contact [facility] Diagnoses Malignant neoplasm of lower third of esophagus (HCC) Procedures EGD DIAGNOSTIC ESOPHAGOGASTRODUODENOSC OPY TRANSORAL DIAGNOSTIC Queta Gleason APRN.CNP [address] [place] [address] [id number] [place] [address] Referral ID Status Reason Start Date Expiration Date V isits Requested Visits Authorized [id number] Closed Auto-Generate d Referral 09/07/2021 09/07/2022 1 1 [facility] for referral (narrative)* Diagnostic Procedure Only (Urgent) - Closed Specialty Diagnoses / Procedures Referred By Contac t Referred To Contact XR IMAG[facility] Diagnoses Rib injury Procedures XR RIBS/CHEST 3V AP RIB/OBLS/CXR RIGHT RADEX RIBS UNI W/POSTEROANT CH MINIMUM 3 VIEWS Yaw Smith APRN.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 [address] [place] [address] Xr Imaging Referral ID Status Reason Start Date Expiration Date V isits Requested Visits Authorized [id number] Closed Auto-Generate d Referral 06/09/2022 07/09/2023 1 1 [facility] for referral (narrative)* Outpatient Procedure (Routine) - Closed Specialty Diagnoses / Procedures Referred By Contac t Referred To Contact [facility] [place] Diagnoses Malignant neoplasm of lower third of esophagus (HCC) Procedures EGD DIAGNOSTIC ESOPHAGOGASTRODUODENOSC OPY TRANSORAL DIAGNOSTIC Queta Hunt APRN.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 [address] [place] [address] [facility] [address] [place] [address] Referral ID Status Reason Start Date Expiration Date V isits Requested Visits Authorized [id number] Closed Auto-Generate d Referral 11/09/2021 11/09/2022 1 1 [facility] for referral (narrative)* Diagnostic Procedure Only (Routine) - Authorized Specialty Diagnoses / Procedures Referred By Contac t Referred To Contact [facility] Diagnoses Malignant neoplasm of lower third of esophagus (HCC) Procedures NM PET/CT SKULL-THIGH SUBSEQUENT PET IMAGING CT ATTENUATION SKULL BASE MID-THIGH Richard Jenkins DO [address] [place] [address] [facility] [address] [id number] Referral ID Status Reason Start Date Expiration Date Visits Requested Visits Authorized [id number] Authorized Auto-Generat ed Referral 04/27/2024 1 1 [facility] for referral (narrative)* Outpatient Procedure (Routine) - Pending Review Specialty Diagnoses / Procedures Referred By Contac pamela Referred To Contact [facility] Diagnoses Malignant neoplasm of esophagus, unspecified location (HCC) Procedures EGD - THERAPEUTIC, EUS, OR TUBE INTERVENTIONS EDG US EXAM SURGICAL ALTER STOM DUODENUM/JEJUNUM Amos Rangel MD [address] [place] [address] [facility] [address] [place] [address] Referral ID Status Reason Start Date Expiration Date Visits Requested Visits Authorized [id number] Pending Review Auto-Generat ed Referral 05/28/2023 05/28/2024 1 1 [facility] for referral (narrative)* Outpatient Procedure (Routine) - Closed Specialty Diagnoses / Procedures [facility] Diagnoses Malignant neoplasm of esophagus, unspecified location (HCC) Procedures EGD - THERAPEUTIC, EUS, OR TUBE INTERVENTIONS EDG US EXAM SURGICAL ALTER STOM DUODENUM/JEJUNUM Amos Rangel MD [address] [place] [address] [facility] [address] [place] [address] Referral ID Status Reason Start Date Expiration Date V isits Requested Visits Authorized [id number] Closed Auto-Generate d Referral 05/28/2023 05/28/2024 1 1 [facility] for referral (narrative)* Diagnostic Procedure Only (Routine) - Authorized Specialty Diagnoses / Procedures [facility] Ref[facility] To Contact [facility] Diagnoses RUQ pain Nausea Procedures NM HEPATOBILIARY W EF AND/OR RX HEPATOBIL SYST IMAG INC GB W/PHARMA INTERVENJ Usha Mcgovern PA-C [address] [place] [address] [facility] [address] [id number] Referral ID Status Reason Start Date Expiration Date Visits Requested Visits Authorized [id number] Authorized Auto-Generat ed Referral 06/19/2023 07/18/2024 1 1 * Diagnostic Procedure Only (Routine) - Authorized Specialty Diagnoses / Procedures [facility] Ref[facility] To Contact [facility] Diagnoses RUQ pain Nausea Procedures US ABD RIGHT UPPER QUADRANT US ABDOMINAL REAL TIME W/IMAGE LIMITED Usha Mcgovern PA-C [address] [place] [address] [facility] [place] [address] Referral ID Status Reason Start Date Expiration Date Visits Requested Visits Authorized [id number] Authorized Auto-Generat ed Referral 06/19/2023 07/18/2024 1 1 [facility] for referral (narrative)* Diagnostic Procedure Only (Routine) - Closed Specialty Diagnoses / Procedures Referred By Contac t Referred To Contact [facility] Diagnoses RUQ pain Nausea Procedures NM HEPATOBILIARY W EF AND/OR RX HEPATOBIL SYST IMAG INC GB W/PHARMA INTERVENJ Usha Mcgovern PA-C [address] [place] [address] [facility] [address] [place] [address] Referral ID Status Reason Start Date Expiration Date V isits Requested Visits Authorized [id number] Closed Auto-Generate d Referral 06/19/2023 07/18/2024 1 1 [facility] for referral (narrative)* Outpatient Procedure (Routine) - Authorized Specialty Diagnoses / Procedures Referred By Contac t Referred To [facility] Diagnoses Pleural effusion TRIPATHI (dyspnea on exertion) Procedures ECHO ECHO TTHRC R-T 2D W/WOM-MODE COMPL SPEC&COLR D Usha Mcgovern PA-C [address] [place] [address] [facility] [address] [place] [address] Referral ID Status Reason Start Date Expiration Date Visits Requested Visits Authorized [id number] Authorized Auto-Generat ed Referral 09/13/2023 09/12/2024 1 1 [facility] for referral (narrative)* Diagnostic Procedure Only (Urgent) - Closed Specialty Diagnoses / Procedures Referred By Contac t Referred To Contact XR IMAGING Diagnoses Rib injury Procedures XR RIBS/CHEST 3V AP RIB/OBLS/CXR RIGHT RADEX RIBS UNI W/POSTEROANT CH MINIMUM 3 VIEWS Yaw Smith, ADALGISA.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 [address] [place] [address] [place] [address] Referral ID Status Reason Start Date Expiration Date V isits Requested Visits Authorized [id number] Closed Auto-Generate d Referral 06/09/2022 07/09/2023 1 1 [facility] for referral (narrative)* Diagnostic Procedure Only (Routine) - Authorized Specialty Diagnoses / Procedures Referred By Contac t Referred To Contact [facility]R IMAG[facility] Diagnoses Malignant neoplasm of lower third of esophagus (HCC) Early satiety Nausea Procedures XR GI SMALL BOWEL FOLLOW-THRU RADIOLOGIC SMALL INTESTINE FOLLOW-THROUGH STUDY Richard Jenkins, DO [address] [place] [address] [place] [address] Referral ID Status Reason Start Date Expiration Date Visits Requested Visits Authorized [id number] Authorized Auto-Generat ed Referral 01/15/2024 02/13/2025 1 1 * Diagnostic Procedure Only (Routine) - Authorized Specialty Diagnoses / Procedures Referred By Contac t Referred To Contact [facility] IMAG[facility] Diagnoses Malignant neoplasm of lower third of esophagus (HCC) Early satiety Nausea Procedures XR UPPER GI SINGLE CONTRAST RADIOLOGIC EXAM UPR GI TRC SINGLE CONTRAST STUDY Richard Jenkins DO [address] [place] [address] [place] [address] Referral ID Status Reason Start Date Expiration Date Visits Requested Visits Authorized [id number] Authorized Auto-Generat ed Referral 01/15/2024 02/13/2025 1 1 * MRI/CT (Routine) - Authorized Specialty Diagnoses / Procedures Referred By Contac t Referred To Contact CT [facility] Diagnoses Malignant neoplasm of lower third of esophagus (HCC) Procedures CT ABD/PEL WO IVCON CT ABD & PELVIS W/O CONTRAST Richard Jenkins DO [address] [place] [place] [address] [place] [address] Referral ID Status Reason Start Date Expiration Date Visits Requested Visits Authorized [id number] Authorized Auto-Generat ed Referral 01/15/2024 02/13/2025 1 1 * MRI/CT (Routine) - Authorized Specialty Diagnoses / Procedures Referred By Contac t Referred To Contact CT [facility] Diagnoses Malignant neoplasm of lower third of esophagus (HCC) Procedures CT CHEST WO IVCON DIAGNOSTIC COMPUTED TOMOGRAPHY THORAX W/O CNTRST Richard Jenkins, DO [address] [place] [address] [place] [address] Referral ID Status Reason Start Date Expiration Date Visits Requested Visits Authorized [id number] Authorized Auto-Generat ed Referral 01/15/2024 02/13/2025 1 1 [facility] for referral (narrative)* Diagnostic Procedure Only (Routine) - Closed Specialty Diagnoses / Procedures Referred By Contac t Referred To Contact XR IMAGING Diagnoses Malignant neoplasm of lower third of esophagus (HCC) Early satiety Nausea Procedures XR UPPER GI SINGLE CONTRAST RADIOLOGIC EXAM UPR GI TRC SINGLE CONTRAST STUDY Richard Jenkins, DO [address] [place] [address] [place] [address] Referral ID Status Reason Start Date Expiration Date V isits Requested Visits Authorized [id number] Closed Auto-Generate d Referral 01/15/2024 02/13/2025 1 1 [facility] for referral (narrative)* Diagnostic Procedure Only (Routine) - Closed Specialty Diagnoses / Procedures Referred By Contac t Referred To Contact XR [facility]AG[facility] Diagnoses Malignant neoplasm of lower third of esophagus (HCC) Early satiety Nausea Procedures XR GI SMALL BOWEL FOLLOW-THRU RADIOLOGIC SMALL INTESTINE FOLLOW-THROUGH STUDY Richard Jenkins, DO [address] [place] [address] [place] [address] Referral ID Status Reason Start Date Expiration Date V isits Requested Visits Authorized [id number] Closed Auto-Generate d Referral 01/15/2024 02/13/2025 1 1 [facility] for referral (narrative)No reason for referral [facility] N[facility]ative* Outpatient Procedure (Routine) - Closed Specialty Diagnoses / Procedures Referred By Contac t Referred To Contact [facility] [place] [facility] Diagnoses Malignant neoplasm of lower third of esophagus (HCC) Procedures EGD DIAGNOSTIC ESOPHAGOGASTRODUODENOSC OPY TRANSORAL DIAGNOSTIC Renetta Radford MD [address] [place] [address] [facility] [address] [place] [address] Referral ID Status Reason Start Date Expiration Date V isits Requested Visits Authorized [id number] Closed Auto-Generate d Referral 08/04/2021 08/04/2022 1 1 [facility] for visit Narrative* Outpatient Procedure (Routine) - Closed Specialty Diagnoses / Procedures Referred By Contac t Referred To Contact [facility] [place] Diagnoses Malignant neoplasm of lower third of esophagus (HCC) Procedures EGD DIAGNOSTIC ESOPHAGOGASTRODUODENOSC OPY TRANSORAL DIAGNOSTIC Queta Gleason, RAILROAD CONDUCTOR.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 [address] [place] [address] [facility] [address] [place] [address] Referral ID Status Reason Start Date Expiration Date V isits Requested Visits Authorized [id number] Closed Auto-Generate d Referral 09/07/2021 09/07/2022 1 1 [facility] for visit Narrative* Outpatient Procedure (Routine) - Closed Specialty Diagnoses / Procedures Referred By Contac t Referred To Contact [facility] [place] [facility] Diagnoses Malignant neoplasm of lower third of esophagus (HCC) Procedures EGD DIAGNOSTIC ESOPHAGOGASTRODUODENOSC OPY TRANSORAL DIAGNOSTIC Queta Hunt , RAILROAD CONDUCTOR.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 [address] [place] [address] [facility] [address] [place] [address] Referral ID Status Reason Start Date Expiration Date V isits Requested Visits Authorized [id number] Closed Auto-Generate d Referral 11/09/2021 11/09/2022 1 1 [facility] for visit Narrative* Outpatient Procedure (Routine) - Closed Specialty Diagnoses / Procedures [facility] Diagnoses Malignant neoplasm of esophagus, unspecified location (HCC) Procedures EGD - THERAPEUTIC, EUS, OR TUBE INTERVENTIONS EDG US EXAM SURGICAL ALTER STOM DUODENUM/JEJUNUM Amos Rangel MD [address] [place] [address] [facility] [address] [place] [address] Referral ID Status Reason Start Date Expiration Date V isits Requested Visits Authorized [id number] Closed Auto-Generate d Referral 05/28/2023 05/28/2024 1 1 [facility] for visit Narrative* Diagnostic Procedure Only (Urgent) - Closed Specialty Diagnoses / Procedures [facility] Referred To Contact [facility] Diagnoses Rib injury Procedures XR RIBS/CHEST 3V AP RIB/OBLS/CXR RIGHT RADEX RIBS UNI W/POSTEROANT CH MINIMUM 3 VIEWS Ywa Smith APRN.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 [address] [place] [address] [place] [address] Referral ID Status Reason Start Date Expiration Date V isits Requested Visits Authorized [id number] Closed Auto-Generate d Referral 06/09/2022 07/09/2023 1 1 [facility] for visit Narrative* Diagnostic Procedure Only (Routine) - Closed Specialty Diagnoses / Procedures [facility] Referred To Contact [facility] Diagnoses Malignant neoplasm of lower third of esophagus (HCC) Early satiety Nausea Procedures XR UPPER GI SINGLE CONTRAST RADIOLOGIC EXAM UPR GI TRC SINGLE CONTRAST STUDY Richard Jenkins, DO [address] [place] [address] [place] [address] Referral ID Status Reason Start Date Expiration Date V isits Requested Visits Authorized [id number] Closed Auto-Generate d Referral 01/15/2024 02/13/2025 1 1 [facility] for visit Narrative* Diagnostic Procedure Only (Routine) - Closed Specialty Diagnoses / Procedures Referred By Contac t Referred To Contact XR IMAGING Diagnoses Malignant neoplasm of lower third of esophagus (HCC) Early satiety Nausea Procedures XR GI SMALL BOWEL FOLLOW-THRU RADIOLOGIC SMALL INTESTINE FOLLOW-THROUGH STUDY Richard Jenkins, DO [address] [place] [address] [place] [address] Referral ID Status Reason Start Date Expiration Date V isits Requested Visits Authorized [id number] Closed Auto-Generate d Referral 01/15/2024 02/13/2025 1 1 [facility] for visit Narrative* Diagnostic Procedure Only (Urgent) - Closed Specialty Diagnoses / Procedures Referred By Contac t Referred To Contact XR IMAGING Diagnoses Acute bilateral low back pain without sciatica Procedures XR LUMBAR GENERAL 3V AP/LAT/L5-S1 RADEX SPINE LUMBOSACRAL 2/3 VIEWS Steve Youssef PA-C [address] [facility] [address] [place] [address] Phone: tel: fax: [place] [address] Referral ID Status Reason Start Date Expiration Date V isits Requested Visits Authorized [id number] Closed Auto-Generate d Referral 08/20/2024 09/19/2025 1 1 [facility] for visit Narrative* MRI/CT (Routine) - Closed Specialty Diagnoses / Procedures Referred By Contac t Referred To Contact MR IMAG[facility] Diagnoses Hyperprolactinemia (HCC) Abnormal FSH level High serum luteinizing hormone (LH) Procedures MRI BRAIN WO IVCON MRI BRAIN BRAIN STEM W/O CONTRAST MATERIAL Stacia Adame MD [address] [place] [address] Phone: tel: fax: [place] [address] Referral ID Status Reason Start Date Expiration Date V isits Requested Visits Authorized [id number] Closed Auto-Generate d Referral 07/11/2024 08/10/2025 1 1 [facility] for visit Narrative* Diagnostic Procedure Only (Routine) - Closed Specialty Diagnoses / Procedures Referred By Contac t Referred To Contact XR IMAGING Diagnoses Lumbar back pain Procedures XR LUMBAR PARS DEFECT 4V AP/LAT/BOTH OBL RADEX SPINE LUMBOSACRAL MINIMUM 4 VIEWS Usha Mcgovern PA-C [address] [place] [address] Phone: tel: fax: [place] [address] Referral ID Status Reason Start Date Expiration Date V isits Requested Visits Authorized [id number] Closed Auto-Generate d Referral 10/07/2024 11/06/2025 [facility] (Routine) - Closed Specialty Diagnoses / Procedures Referred By Nahomy t Referred To Contact CT IMAGING Diagnoses Malignant neoplasm of lower third of esophagus (HCC) Procedures CT ABD/PEL WO IVCON CT ABD & PELVIS W/O CONTRAST Richard Jenkins, DO [address] [place] [address] Phone: tel: fax: [place] [address] Referral ID Status Reason Start Date Expiration Date V isits Requested Visits Authorized [id number] Closed Auto-Generate d Referral 05/02/2024 06/01/2025 1 1 [facility] Summary Purpose Family History No Family History Records Found Relationship Condition Age at Onset Recorded Date/T sary father Cardiac disease Unknown Myocardial infarction Unknown Hypertension Unknown brother Hypertension Unknown sister Cardiac disease Unknown Advance Directives No Advanced Directives Records FoundDocuments on File Type Date Recorded Patient Storage Garage Manager Expl anation Advance Directives and Living Will Power of Account Manager Trainee Latest Code Status on File Code Status Date Activated Date Inactivated Comments Full Code 07/25/2013 5:08 PM 07/26/2013 1:38 PM Documents on File Type Date Recorded Patient Storage Garage Manager Expl anation ACP-Advance Directive ACP-Power of Account Manager Trainee Latest Code Status on File Code Status Date Activated Date Inactivated Comments Full Code 03/03/2019 8:59 AM 03/04/2019 3:48 PM Full Code 03/03/2019 5:32 AM 03/03/2019 8:33 AM Full Code 07/25/2013 5:08 PM 07/26/2013 1:38 PM Documents on File Type Date Recorded Patient Storage Garage Manager Expl anation Advance Directives and Living Will Power of Account Manager Trainee Latest Code Status on File Code Status Date Activated Date Inactivated Comments Full Code 03/03/2019 8:59 AM Full Code 03/03/2019 5:32 AM 03/03/2019 8:33 AM Full Code 07/25/2013 5:08 PM 07/26/2013 1:38 PM Latest Code Status on File Code Status Date Activated Date Inactivated Comments Full Code 07/25/2013 5:08 PM 07/26/2013 1:38 PM Latest Code Status on File Code Status Date Activated Date Inactivated Comments Full Code 03/03/2019 8:59 AM 03/04/2019 3:48 PM Documents on File Type Date Recorded Patient Storage Garage Manager Expl anation Advance Directive(s) 11/16/2020 1:24 PM Advance Directive(s) 07/16/2020 12:40 PM Advance Directive(s) 06/01/2020 9:24 AM Advance Directive(s) 05/27/2020 10:47 AM Advance Directive(s) 04/23/2020 12:19 PM Advance Directive(s) 04/15/2020 8:22 AM Advance Directive(s) 04/07/2020 12:24 PM Advance Directive(s) 07/23/2017 6:04 PM Advance Directive(s) 06/21/2017 2:36 PM Advance Directive(s) 05/29/2017 9:49 AM Advance Directive(s) 12/06/2016 9:51 AM Advance Directive(s) 11/12/2016 7:36 AM Advance Directive(s) 10/29/2016 2:07 PM Documents on File Type Date Recorded Patient Storage Garage Manager Expl anation Advance Directive(s) 11/16/2020 1:24 PM Advance Directive(s) 07/16/2020 12:40 PM Advance Directive(s) 06/01/2020 9:24 AM Advance Directive(s) 05/27/2020 10:47 AM Advance Directive(s) 04/23/2020 12:19 PM Advance Directive(s) 04/15/2020 8:22 AM Advance Directive(s) 04/07/2020 12:24 PM Advance Directive(s) 07/23/2017 6:04 PM Advance Directive(s) 06/21/2017 2:36 PM Advance Directive(s) 05/29/2017 9:49 AM Advance Directive(s) 12/06/2016 9:51 AM Advance Directive(s) 11/12/2016 7:36 AM Advance Directive(s) 10/29/2016 2:07 PM Advance Directive Response Recorded Date/ Time Advance Directives No June 27 6:19pm Living Will No June 23, 2022 4:34pm Power of Account Manager Trainee No June 23 4:34pm Advance Directive Response Recorded Date/ Time Advance Directives No June 27 6:19pm Advance Directive Response Recorded Date/ Time Living Will Yes June 02 11:59am Do you have a Healthcare Pow er of Account Manager Trainee? Yes June 02, 2024 11:59am Name of Medical Power of Account Manager Trainee LACHO YARELY SLAUGHTERDodie June 02, 2024 11:59am Advance Directives No June 27 6:19pm Advance Directive Response Recorded Date/ Time Living Will Yes June 02 11:59am Do you have a Healthcare Pow er of Account Manager Trainee? Yes June 02, 2024 11:59am Name of Medical Power of Account Manager Trainee LACHO FROST June 02, 2024 11:59am Do you have a Healthcare Pow er of Account Manager Trainee? Yes September 17, 2024 10:04pm Advance Directives No June 27 6:19pm Advance Directive Response Recorded Date/ Time Living Will Yes June 02 11:59am Do you have a Healthcare Power of Account Manager Trainee? Yes June 02, 2024 11:59am Name of Medical Power of Account Manager Trainee LACHO BECERRASHIMONDANY June 02, 2024 11:59am Do you have a Healthcare Power of Account Manager Trainee? Yes September 17, 2024 10:04pm Advance Directives on File Yes October 15, 2024 9:21am Living Will Yes October 15, 2024 9 :21am Do you have a Healthcare Power of Account Manager Trainee? Yes October 15, 2024 9:21am Name of Medical Power of Account Manager Trainee Camryn Baird- Daughter October 15, 2024 9:21am Advance Directives Yes October 15 9:21am Advance Directive Response Recorded Date/ Time Do you have a Healthcare Pow er of Account Manager Trainee? Yes September 17, 2024 10:04pm Advance Directives on File Yes October 15, 2024 9:21am Living Will Yes October 15, 2024 9 :21am Do you have a Healthcare Pow er of Account Manager Trainee? Yes Sujatha 9th, 2025 9:21am Name of Medical Power of Account Manager Trainee Camryn Baird- Daughter October 15, 2024 9:21am Advance Directives Yes October 15 9:21am Hospital Course Note EMERGENCY DEPARTMENT DISCHAR GE SUMMARY PATIENT NAME:JACOB LANDA MRN: [id number] AGE: 63 Years SEX: Male PHONE:[phone] DOS: 12/30/2018 10:54:00 : 1955 ATTENDING PHYSICIAN:Yessi VENTURA PCP: Physician, PCP Unknown CHIEF COMPLAINT: rt sided chest pain Allergies No Known Medication Allergies Problems Active Chronic joint pain Borderline high cholesterol Benign essential HTN DISCHARGE DIAGNOSIS: DISCHARGE INSTRUCTIONS: ED PHYSICIAN DOCUMENTATION: DISPOSITION: Time of Departure From ER 12/30/2018 17:53 Discharge/Transfer From ER Admit to inpatient MEDICATION LISTS: CURRENT MEDICATION LIST AmLODIPine (amLODipine 10 mg oral tablet) 1 Tab(s) By Mouth once a day. ascorbic acid/chondroitin/glucosa/vimal (Glucosamine Chondroitin oral capsule) 3 Capsule By Mouth once a day. aspirin (aspirin 81 mg oral tablet) 1 Tab(s) By Mouth once a day. atorvastatin (atorvastatin 80 mg oral tablet) 1 Tab(s) By Mouth Bedtime. cetirizine (ZyrTEC 10 mg oral tablet) 1 Tab(s) By Mouth once a day. clop (more content not included)... Note CLINICAL SUMMARY Please take this summary document to your follow up appointments. [facility] 01/01/19 13:40 [address] [place]. [address] PATIENT INFORMATION Name: JACOB LANDA Address: [address] [place] [id number] Age: 63 Years Phone: [phone] : 1955 12:00 MRN: [id number] Sex: Male Race: White Ethnicity: Not Hispan/Lat Admitted From: [facility] Medical Service: Internal Medicine Nurse Unit/Bed: (CHRIS ORELLANA [id number] Admit Date: 12/31/2018 10:30 PCP: Physician, PCP Unknown PHYSICIANS INVOLVED WITH CARE Attending Physicians: Yessi VENTURA - Internal Medicine Admitting Physician: Sandra Carlson MD - Internal Medicine Primary Care Physician:Physician, PCP Unknown,Family Practice,,, - Consults: Sandra Kelsey MD - Shell Disease Jurgen MANNING , Bismark Dickson - Shell Disease Problems Active (more content not included)... Note DICTATED BY: SANDRA CARLSON MD DATE OF ADMISSION: 12/30/2018 ADMITTING ATTENDING: [facility]. PRIMARY CARE PHYSICIAN: Unknown. REASON FOR ADMISSION: Right-sided chest pain with diaphoresis and nausea. HISTORY OF PRESENT ILLNESS: The patient is a pleasant 63-year-old male who gets most of his healthcare done in the [facility] as he lives in [place], [place]. 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 The patient has previously underwent coronary artery bypass grafting and subsequently also underwent 3 stents to his LAD for a non-ST elevation myocardial infarction that he had similar symptoms when he presented with that. He is also apparently being evaluated for aortic stenosis and possible TAVR for 2019. His fiber optic assembly worker name is Dr. Noland. Today, he started having a significant amount of chest pressure and chest pain on the right side of his chest that he describes as a cramping. It started about 9:30 this morning when he had come to a trailer y (more content not included)... Note Patient: JACOB LANDA Age: 63 years Sex: Male : 1955 Associated Diagnoses: None Author: Sandra Kelsey MD SUBJECTIVE/Chief Complaint: Patient feeling well without complaints. Eager for discharge. No further chest pain. Results of echo discussed with the patient. OBJECTIVE: [ ] Physical Exam: Lungs: Clear Cardio: Regular rate and rhythm. 4/6 murmur of aortic stenosis with diminished aortic component of the second heart sound. Abdomen: Soft, obese and nontender Extremities: No edema, no groin hematoma Neuro: No gross motor deficits Telemetry: Sinus I have reviewed the following: [ ] Assessment: 1. Unstable angina. Trivial troponin elevation noted. 2. Severe three-vessel coronary artery disease status post four-vessel bypass grafting in September 2002. Cardiac catheterization performed on 12/31/2018 demonstrated a patent MCKEON graft to the LAD, occluded SURAJ graft to the ramus, patent stents within the mid and distal RCA and a patent, escobedo (more content not included)... Assessments Diagnosis Severe aortic stenosis Aortic valve disorders Diagnosis S/P TAVR (transcatheter aortic valve replacement) Aortic valve stenosis, etiology of cardiac valve disease unspecified Diagnosis Nonrheumatic aortic valve stenosis Aortic valve disorders Note DICTATED BY: SANDRA CARLSON MD DATE OF ADMISSION: 12/30/2018 ADMITTING ATTENDING: [facility]. PRIMARY CARE PHYSICIAN: Unknown. REASON FOR ADMISSION: Right-sided chest pain with diaphoresis and nausea. HISTORY OF PRESENT ILLNESS: The patient is a pleasant 63-year-old male who gets most of his healthcare done in the [facility] as he lives in [place], [place]. 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 The patient has previously underwent coronary artery bypass grafting and subsequently also underwent 3 stents to his LAD for a non-ST elevation myocardial infarction that he had similar symptoms when he presented with that. He is also apparently being evaluated for aortic stenosis and possible TAVR for 2019. His fiber optic assembly worker name is Dr. Noland. Today, he started having a significant amount of chest pressure and chest pain on the right side of his chest that he describes as a cramping. It started about 9:30 this morning when he had come to a trailer y (more content not included)... Note Patient: JACOB LANDA MRN: [id number] Age: 63 years Sex: Male : 1955 Associated Diagnoses: None Author: Low MANNING , Sandra Echevarria SUBJECTIVE/Chief Complaint: Patient feeling well without complaints. Eager for discharge. No further chest pain. Results of echo discussed with the patient. OBJECTIVE: [ ] Physical Exam: Lungs: Clear Cardio: Regular rate and rhythm. 4/6 murmur of aortic stenosis with diminished aortic component of the second heart sound. Abdomen: Soft, obese and nontender Extremities: No edema, no groin hematoma Neuro: No gross motor deficits Telemetry: Sinus I have reviewed the following: [ ] Assessment: 1. Unstable angina. Trivial troponin elevation noted. 2. Severe three-vessel coronary artery disease status post four-vessel bypass grafting in September 2002. Cardiac catheterization performed on 12/31/2018 demonstrated a patent MCKEON graft to the LAD, occluded SURAJ graft to the ramus, patent stents within the mid and distal RCA and a patent, escobedo (more content not included)... Reason for Referral Status Reason Specialty Diagnoses / Procedures Referre d By Contact Referred To Contact Closed Radiology Diagnoses Nonrheumatic aortic valve stenosis Procedures CTA Chest Abdomen Pelvis W Contrast Tyshawn Magallanes MD [address] [place] [address] Status Reason Specialty Diagnoses / Procedures Referre d By Contact Referred To Contact Closed Cardiology Diagnoses S/P TAVR (transcatheter aortic valve replacement) Aortic valve stenosis, etiology of cardiac valve disease unspecified Procedures Echo 2D Doppler Color 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 RAILROAD CONDUCTOR - 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 [address] [place] [address] Status Reason Specialty Diagnoses / Procedures Referre d By Contact Referred To Contact Closed Cardiology Diagnoses Severe aortic stenosis Coronary artery disease involving snoqualmie coronary artery of s[place]qualmie heart without angina pectoris Essential hypertension Obesity (BMI 30.0-34.9) Procedures ECHO Complete 2D W Doppler W Color 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 APRN - 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 [address] [address] Specialty Diagnoses / Procedures Referred By Contac t Referred To Contact CT IMAGING Diagnoses Malignant neoplasm of lower third of esophagus (HCC) Pleural effusion Procedures CT CHEST W IVCON DIAGNOSTIC COMPUTED TOMOGRAPHY THORAX W/CONTRAST Mari Akhtar APRN.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 [address] [place] [address] Ct Imaging Referral ID Status Reason Start Date Expiration Date V isits Requested Visits Authorized [id number] Closed Auto-Generate d Referral 08/24/2021 09/23/2022 1 1 Specialty Diagnoses / Procedures Referred By Contac t Referred To Contact CT IMAGING Diagnoses Malignant neoplasm of lower third of esophagus (HCC) Procedures CT ABD/PEL W IVCON CT ABD & PELVIS W/CONTRAST Mari Akhtar APRN.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 [address] [place] [address] Ct Imaging Referral ID Status Reason Start Date Expiration Date V isits Requested Visits Authorized [id number] Closed Auto-Generate d Referral 08/24/2021 09/23/2022 1 1 Specialty Diagnoses / Procedures Referred By Contac t Referred To Contact CT IMAGING Diagnoses Malignant neoplasm of lower third of esophagus (HCC) Procedures CT CHEST W IVCON DIAGNOSTIC COMPUTED TOMOGRAPHY THORAX W/CONTRAST Richard Jenkins, DO [address] [place] [address] Ct Imaging Referral ID Status Reason Start Date Expiration Date Visits Requested Visits Authorized [id number] Authorized Auto-Generat ed Referral 11/02/2021 12/02/2022 1 1 Specialty Diagnoses / Procedures Referred By Contac t Referred To Contact CT IMAGING Diagnoses Malignant neoplasm of lower third of esophagus (HCC) Procedures CT ABD/PEL W IVCON CT ABD & PELVIS W/CONTRAST Richard Jenkins, DO [address] [place] [address] Ct Imaging Referral ID Status Reason Start Date Expiration Date Visits Requested Visits Authorized [id number] Authorized Auto-Generat ed Referral 11/02/2021 12/02/2022 1 1 Referral ID Status Reason Start Date Expiration Date Visits Requested Visits Authorized [id number] Authorized Auto-Generat ed Referral 08/22/2022 09/21/2023 1 1 Referral ID Status Reason Start Date Expiration Date Visits Requested Visits Authorized [id number] Authorized Auto-Generat ed Referral 08/22/2022 09/21/2023 1 1 Specialty Diagnoses / Procedures Referred By Contac t Referred To Contact CT IMAGING Diagnoses Malignant neoplasm of lower third of esophagus (HCC) Procedures CT CHEST W IVCON DIAGNOSTIC COMPUTED TOMOGRAPHY THORAX W/CONTRAST Richard Jenkins, DO [address] [place] [address] [place] [address] Referral ID Status Reason Start Date Expiration Date V isits Requested Visits Authorized [id number] Closed Auto-Generate d Referral 11/02/2021 12/02/2022 1 1 Specialty Diagnoses / Procedures Referred By Contac t Referred To Contact CT IMAGING Diagnoses Malignant neoplasm of lower third of esophagus (HCC) Procedures CT ABD/PEL W IVCON CT ABD & PELVIS W/CONTRAST Richard Jenkins, DO [address] [place] [address] [place] [address] Referral ID Status Reason Start Date Expiration Date V isits Requested Visits Authorized [id number] Closed Auto-Generate d Referral 11/02/2021 12/02/2022 1 1 Specialty Diagnoses / Procedures Referred By Contac t Referred To Contact CT IMAGING Diagnoses Malignant neoplasm of lower third of esophagus (HCC) Procedures CT CHEST W IVCON DIAGNOSTIC COMPUTED TOMOGRAPHY THORAX W/CONTRAST Mari Akhtar, ADALGISA.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 [address] [place] [address] [place] [address] Referral ID Status Reason Start Date Expiration Date V isits Requested Visits Authorized [id number] Closed Auto-Generate d Referral 02/22/2022 03/24/2023 1 1 Specialty Diagnoses / Procedures Referred By Contac t Referred To Contact CT IMAGING Diagnoses Malignant neoplasm of lower third of esophagus (HCC) Procedures CT ABD/PEL W IVCON CT ABD & PELVIS W/CONTRAST Mari Akhtar, ADALGISA.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 [address] [place] [address] [place] [address] Referral ID Status Reason Start Date Expiration Date V isits Requested Visits Authorized [id number] Closed Auto-Generate d Referral 02/22/2022 03/24/2023 1 1 Specialty Diagnoses / Procedures Referred By Contac t Referred To Contact MR IMAGING Diagnoses Esophageal adenocarcinoma (HCC) Compression fracture of thoracic vertebra, unspecified thoracic vertebral level, initial encounter (HCC) Procedures MRI THORACIC SPINE WO/W IVCON MRI SPINAL CANAL THORACIC W/O & W/CONTR MATRL Richard Jenkins, DO [address] [place] [address] [place] [address] Referral ID Status Reason Start Date Expiration Date Visits Requested Visits Authorized [id number] Authorized Auto-Generat ed Referral 3 03/22/2024 1 1 Specialty Diagnoses / Procedures Referred By Contac t Referred To Contact [facility] Diagnoses Closed wedge compression fracture of T10 vertebra with routine healing, subsequent encounter Procedures CONSULT TO [facility] OFFICE/OUTPATIENT [facility] 60 MINUTES Richard Jenkins DO [address] [place] [address] Referral ID Status Reason Start Date Expiration Date Visits Requested Visits Authorized [id number] Authorized PCP Requested Referral 06/18/2023 06/17/2024 1 1 Specialty Diagnoses / Procedures Referred By Contac t Referred To Contact [facility] Diagnoses Closed wedge compression fracture of T10 vertebra with routine healing, subsequent encounter Malignant neoplasm of lower third of esophagus (HCC) Strain of thoracic paraspinal muscles excluding T1 and T2 levels, sequela Kyphosis (acquired) (postural) Procedures CONSULT TO PHYSICAL THERAPY PHYSICAL THERAPY EVALUATION HIGH COMPLEX 45 MINS Jesus Manuel Resendiz PA-C [address] [place] [address] [facility] [address] [address] Referral ID Status Reason Start Date Expiration Date Visits Requested Visits Authorized [id number] Authorized PCP Requested Referral Auto-Generate d Referral 07/12/2023 07/11/2024 99 99 Referral ID Status Reason Start Date Expiration Date Visits Requested Visits Authorized [id number] Authorized Auto-Generat ed Referral 07/19/2023 08/17/2024 1 1 Referral ID Status Reason Start Date Expiration Date Visits Requested Visits Authorized [id number] Authorized Auto-Generat ed Referral 07/19/2023 08/17/2024 1 1 Specialty Diagnoses / Procedures Referred By Contac t Referred To Contact MR IMAGING Diagnoses Pathological fracture of thoracic vertebra, initial encounter Procedures MRI THORACIC SPINE WO/W IVCON MRI SPINAL CANAL THORACIC W/O & W/CONTR MATRL Richard Jenkins DO [address] [place] [address] [place] [address] Referral ID Status Reason Start Date Expiration Date Visits Requested Visits Authorized [id number] Authorized Auto-Generat ed Referral 08/10/2023 09/08/2024 1 1 Referral ID Status Reason Start Date Expiration Date V isits Requested Visits Authorized [id number] Closed Auto-Generate d Referral 08/10/2023 09/08/2024 1 1 Specialty Diagnoses / Procedures Referred By Contac t Referred To Contact Endocrinology Diagnoses Mixed hyperlipidemia Coronary artery disease involving snoqualmie coronary artery of snoqualmie heart without angina pectoris Procedures CONSULT TO ENDOCRINOLOGY OFFICE/OUTPATIENT [facility] 60 MINUTES Yaw Singh MD [address] [place] [address] Referral ID Status Reason Start Date Expiration Date Visits Requested Visits Authorized [id number] Authorized PCP Requested Referral 10/08/2023 10/07/2024 1 1 Specialty Diagnoses / Procedures Referred By Contac t Referred To Contact MR IMAGING Diagnoses Malignant neoplasm of lower third of esophagus (HCC) Closed wedge compression fracture of T10 vertebra with delayed healing, subsequent encounter Procedures MRI THORACIC SPINE WO/W IVCON MRI SPINAL CANAL THORACIC W/O & W/CONTR MATRL Richard Jenkins, DO [address] [place] [address] [place] [address] Referral ID Status Reason Start Date Expiration Date Visits Requested Visits Authorized [id number] Authorized Auto-Generat ed Referral 05/02/2024 06/01/2025 1 1 Specialty Diagnoses / Procedures Referred By Contac t Referred To Contact CT IMAGING Diagnoses Malignant neoplasm of lower third of esophagus (HCC) Procedures CT ABD/PEL WO IVCON CT ABD & PELVIS W/O CONTRAST Richard Jenkins, DO [address] [place] [address] [place] [address] Referral ID Status Reason Start Date Expiration Date Visits Requested Visits Authorized [id number] Authorized Auto-Generat ed Referral 05/02/2024 06/01/2025 1 1 Specialty Diagnoses / Procedures Referred By Contac t Referred To Contact CT IMAGING Diagnoses Malignant neoplasm of lower third of esophagus (HCC) Procedures CT CHEST WO IVCON DIAGNOSTIC COMPUTED TOMOGRAPHY THORAX W/O CNTRST Richard Jenkins, DO [address] [place] [address] [place] [address] Referral ID Status Reason Start Date Expiration Date Visits Requested Visits Authorized [id number] Authorized Auto-Generat ed Referral 05/02/2024 06/01/2025 1 1 Referral ID Status Reason Start Date Expiration Date V isits Requested Visits Authorized [id number] Closed Auto-Generate d Referral 05/02/2024 06/01/2025 1 1 Discharge Instructions * Instructions* 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, RAILROAD CONDUCTOR - 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 - 03/03/2019 - Please call the [facility] with any questions: [phone] -You will have have the following follow up appointments in the [facility]: one week post procedure, one month post procedure with echocardiogram, one year post procedure with echocardiogram. -Wash groin/wrist incision with soap and water, pat dry. Apply bandage for 5 days. If you have a chest incision, you will receive specific instructions from your surgeon regarding care of the incision. -Check incision every day. If you see any changes in the way it looks, call the [facility] at . Look for any of these problems: redness and warmth that does not go away, yellow or green drainage from the wound, fever and chills, numbness in your legs, pain that is getting worse. -It is normal to have a bruise or soft lump in the groin. This will get smaller and go away with time -Do not drive until after your first [facility] Appointment. -Do not lift, push, or pull anything weighing more than 5 lbs or more for one week if you had the procedure through your groin and 4 weeks if you had the procedure through the chest -We strongly encourage a regular exercise program such as cardiac rehabilitation once you have beencleared to resume normal activity. -Eating well is important for your recovery. Eat nutritious foods every day. Please follow a cardiac, 2 gram sodium diet. Please continue to follow any other dietary recommendations provided by your health care provider prior to your valve surgery. -From now on, tell your doctors and health care providers about your heart valve implantation (prosthetic heart valve ). -If you go to the emergency room or are admitted to the hospital during the first year after your procedure, please call the [facility] at -If you have major dental work or other invasive medical procedures (like surgery) you may need to take antibiotics before the dental work or the procedure. Please discuss with your health care provider. - You will need to take blood thinning medications(antiplatelet) after your valve procedure. Generally, this includes aspirin and clopidogrel. The clopidogrel will be for 3 months and the aspirin will be indefinite. documented in this encounter Medications Administered Section Inactive Administered Medications - up to 3 most recent administrations Medication Order MAR Action Action Date Dose Rate Site nivolumab 240 mg in NaCl 0.9% 100 mL (OPDIVO) 240 mg (set by rule on 07/14/2021 2:11 PM), INTRAVENOUS, Administer over 30 Minutes, ONCE, 1 dose, On Tita 07/28/21 at 1500, Approx Total Volume:exp 0900 07/29/21 (refrigerated) Administer with 0.2 micron filter. New Bag/Syringe/Bottle 07/28/2021 3:11 PM EDT 240 mg Inactive Administered Medications - up to 3 most recent administrations Medication Order MAR Action Action Date Dose Rate Site nivolumab 240 mg in NaCl 0.9% 100 mL (OPDIVO) 240 mg (set by rule on 07/14/2021 2:11 PM), INTRAVENOUS, Administer over 30 Minutes, ONCE, 1 dose, On Tita 08/11/21 at 1530, Approx Total Volume - Expires: 08/11/21 @ 2320 Administer with 0.2 micron filter. New Bag/Syringe/Bottle 08/11/2021 3:40 PM EDT 240 mg Inactive Administered Medications - up to 3 most recent administrations Medication Order MAR Action Action Date Dose Rate Site nivolumab 240 mg in NaCl 0.9% 100 mL (OPDIVO) 240 mg (set by rule on 07/14/2021 2:11 PM), INTRAVENOUS, Administer over 30 Minutes, ONCE, 1 dose, On Tita 08/25/21 at 1530, exp 0900 08/26/21 (refrigerated) Administer with 0.2 micron filter. New Bag/Syringe/Bottle 08/25/2021 3:28 PM EDT 240 mg Inactive Administered Medications - up to 3 most recent administrations Medication Order MAR Action Action Date Dose Rate Site nivolumab 240 mg in NaCl 0.9% 100 mL (OPDIVO) 240 mg (set by rule on 07/14/2021 2:11 PM), INTRAVENOUS, Administer over 30 Minutes, ONCE, 1 dose, On Tita 09/08/21 at 1500, exp 2200 09/08/21 (room temp) Administer with 0.2 micron filter. New Bag/Syringe/Bottle 09/08/2021 2:48 PM EDT 240 mg Inactive Administered Medications - up to 3 most recent administrations Medication Order MAR Action Action Date Dose Rate Site nivolumab 240 mg in NaCl 0.9% 100 mL (OPDIVO) 240 mg (set by rule on 07/14/2021 2:11 PM), INTRAVENOUS, Administer over 30 Minutes, ONCE, 1 dose, On Tita 10/20/21 at 1430, exp 2230 10/20/21 (room temp) Administer with 0.2 micron filter. Protect from light if utilizing refrigerator 7 day expiration. New Bag/Syringe/Bottle 10/20/2021 2:32 PM EDT 240 mg Chief Complaint and Reason for Visit Chief Complaint 6 M FU ABD PAIN Reason for Visit Adenocarcinoma of es ophagus Atherosclerosis of coronary artery of snoqualmie heart without angina pectoris Hyperlipidemia History of aortic valve replacement Chief Complaint E ORDERS Chief Complaint Admit Date DIALYSIS VEIN MAPPING April 24, 2024 8:03am Dialysis Access Consult April 28 1:53pm S/P WC 11/10 Pericardial Effusion/ Preo p Eval April 29, 2024 1:49pm E-ORDER June 06, 2024 7:59am Reason for Visit Admit Date ESRD (end stage renal disease) on dialys is April 28, 2024 1:53pm ESRD (end stage renal disease) on dialys is April 29, 2024 1:49pm Hyperlipidemia April 29, 2024 1 :49pm History of aortic valve replacement Kevin vergara 2024 1:49pm Adenocarcinoma of esophagus April 1:49pm Atherosclerosis of coronary artery of s[place]qualmie heart without angina pectoris April 29, 2024 1:49pm Chief Complaint Admit Date DIALYSIS VEIN MAPPING April 24, 2024 8:03am Dialysis Access Consult April 28 1:53pm S/P [facility] 11/10 Pericardial Effusion/ Preo p Eval April 29, 2024 1:49pm E-ORDER June 06, 2024 7:59am Left Arteriovenous Fistula,Creation Mark h 2024 6:45am Left Arteriovenous Fistula,Creation Mark h 2024 7:14am Reason for Visit Admit Date ESRD (end stage renal disease) on dialys is April 28, 2024 1:53pm ESRD (end stage renal disease) on dialys is April 29, 2024 1:49pm Hyperlipidemia April 29, 2024 1 :49pm History of aortic valve replacement Kevin ursula 2024 1:49pm Adenocarcinoma of esophagus April 1:49pm Atherosclerosis of coronary artery of s[place]qualmie heart without angina pectoris April 29, 2024 1:49pm ESRD (end stage renal disease) on dialys is June 30, 2024 6:45am Chief Complaint Admit Date E-ORDER June 06, 2024 7:59am Left Arteriovenous Fistula,Creation Mark h 2024 6:45am Left Arteriovenous Fistula,Creation Mark h 2024 7:14am Post Fistula Creation 2-3 WK FU July 222024 2:11pm 6-8 WK FU September 02, 2024 1:47p m Reason for Visit Admit Date ESRD (end stage renal disease) on dialys is June 30, 2024 6:45am AV fistula July 22, 2024 2:1 1pm Chief Complaint Admit Date E-ORDER June 06, 2024 7:59am Left Arteriovenous Fistula,Creation Mark h 2024 6:45am Left Arteriovenous Fistula,Creation Mark h 2024 7:14am Post Fistula Creation 2-3 WK FU July 222024 2:11pm 6-8 WK FU September 02, 2024 1:47p m BACK September 17, 2024 5:30 pm Reason for Visit Admit Date ESRD (end stage renal disease) on dialys is June 30, 2024 6:45am AV fistula July 22, 2024 2:1 1pm AV fistula September 02, 2024 1:47p m Chief Complaint Admit Date Left Arteriovenous Fistula,Creation Mark h 2024 6:45am Left Arteriovenous Fistula,Creation Mark h 2024 7:14am Post Fistula Creation 2-3 WK FU July 222024 2:11pm 6-8 WK FU September 02, 2024 1:47p m BACK September 17, 2024 5:30 pm REMOVAL October 15, 2024 9:01a m REMOVAL October 15, 2024 10:22 am Reason for Visit Admit Date ESRD (end stage renal disease) on dialys is June 30, 2024 6:45am AV fistula July 22, 2024 2:1 1pm AV fistula September 02, 2024 1:47p m Tunneled central venous catheter present October 15, 2024 9:01am Chief Complaint Admit Date Post Fistula Creation 2-3 WK FU July 222024 2:11pm 6-8 WK FU September 02, 2024 1:47p m BACK September 17, 2024 5:30 pm REMOVAL October 15, 2024 9:01a m REMOVAL October 15, 2024 10:22 am lumber spine November 14, 2024 9:2 8am Room 3 November 14, 2024 9:4 7am Reason for Visit Admit Date AV fistula July 22, 2024 2:1 1pm AV fistula September 02, 2024 1:47p m Tunneled central venous catheter present October 15, 2024 9:01am Chief Complaint Admit Date 6-8 WK FU September 02, 2024 1:47p m BACK September 17, 2024 5:30 pm REMOVAL October 15, 2024 9:01a m REMOVAL October 15, 2024 10:22 am lumber spine November 14, 2024 9:2 8am Room 3 November 14, 2024 9:4 7am osteoporosis November 26, 2024 9: 52am LUMBAR PAIN December 03, 2024 10 :54am Reason for Visit Admit Date AV fistula September 02, 2024 1:47p m Tunneled central venous catheter present October 15, 2024 9:01am Compression fracture of L1 lumbar verteb ra November 14, 2024 9:28am Compression fracture of L2 November 14, 2 025 9:28am Compression fracture of L3 vertebra Augu 2024 9:28am Compression fracture of L4 vertebra Augu 2024 9:28am Compression fracture of L5 vertebra Augu 2024 9:28am Additional Source Comments (unrecognized sect ion and content) No Status Records FoundNo Status Records FoundNo Status Records FoundNo Status Records FoundNo Status Records FoundNo Status Records FoundNo Status Records FoundNo Status Records FoundNo Status Records FoundNo Status Records FoundNo Status Records Found INFORMATION SOURCE (unrecogn ized section and content) DATE CREATED AUTHOR 09/27/2017 [facility] DATE CREATED AUTHOR AUTHOR'S ORGANIZ ATION [facility] [place] DATE CREATED AUTHOR AUTHOR'S ORGANIZ ATION 01/11/2019 [facility] DATE CREATED AUTHOR AUTHOR'S ORGANIZ ATION 03/05/2020 [facility] DATE CREATED AUTHOR AUTHOR'S ORGANIZ ATION 09/01/2020 [facility] ([place]) DATE CREATED AUTHOR AUTHOR'S ORGANIZ ATION 05/07/2021 [facility] DATE CREATED AUTHOR AUTHOR'S ORGANIZ ATION 04/10/2023 [facility] DATE CREATED AUTHOR AUTHOR'S ORGANIZ ATION 04/19/2023 [facility] DATE CREATED AUTHOR AUTHOR'S ORGANIZ ATION 02/03/2024 [facility] DATE CREATED AUTHOR AUTHOR'S ORGANIZ ATION 02/14/2025 [facility] DATE CREATED AUTHOR AUTHOR'S ORGANIZ ATION 02/18/2025 [facility] Source Comments (unrecognize d section and content) In the event this informatio n is protected by the Federal Confidentiality of Alcohol and Drug Abuse Patient Records regulations: The Federal rules restrict any use of the information to criminally investigate or prosecute any alcohol or drug abuse patient.[facility] the event this information is protected by the Federal Confidentiality of Alcohol and Drug Abuse Patient Records regulations: The Federal rules restrict any use of the information to criminally investigate or prosecute any alcohol or drug abuse patient.[facility] CenterIn the event this information is protected by the Federal Confidentiality of Alcohol and Drug Abuse Patient Records regulations: The Federal rules restrict any use of the information to criminally investigate or prosecute any alcohol or drug abuse patient.[facility] CenterIn the event this information is protected by the Federal Confidentiality of Alcohol and Drug Abuse Patient Records regulations: The Federal rules restrict any use of the information to criminally investigate or prosecute any alcohol or drug abuse patient.[facility] CenterIn the event this information is protected by the Federal Confidentiality of Alcohol and Drug Abuse Patient Records regulations: The Federal rules restrict any use of the information to criminally investigate or prosecute any alcohol or drug abuse patient.[facility] CenterIn the event this information is protected by the Federal Confidentiality of Alcohol and Drug Abuse Patient Records regulations: The Federal rules restrict any use of the information to criminally investigate or prosecute any alcohol or drug abuse patient.[facility] CenterIn the event this information is protected by the Federal Confidentiality of Alcohol and Drug Abuse Patient Records regulations: The Federal rules restrict any use of the information to criminally investigate or prosecute any alcohol or drug abuse patient.[facility] CenterIn the event this information is protected by the Federal Confidentiality of Alcohol and Drug Abuse Patient Records regulations: The Federal rules restrict any use of the information to criminally investigate or prosecute any alcohol or drug abuse patient.[facility] CenterIn the event this information is protected by the Federal Confidentiality of Alcohol and Drug Abuse Patient Records regulations: The Federal rules restrict any use of the information to criminally investigate or prosecute any alcohol or drug abuse patient.[facility] CenterIn the event this information is protected by the Federal Confidentiality of Alcohol and Drug Abuse Patient Records regulations: The Federal rules restrict any use of the information to criminally investigate or prosecute any alcohol or drug abuse patient.[facility] CenterIn the event this information is protected by the Federal Confidentiality of Alcohol and Drug Abuse Patient Records regulations: The Federal rules restrict any use of the information to criminally investigate or prosecute any alcohol or drug abuse patient.[facility] CenterIn the event this information is protected by the Federal Confidentiality of Alcohol and Drug Abuse Patient Records regulations: The Federal rules restrict any use of the information to criminally investigate or prosecute any alcohol or drug abuse patient.[facility] CenterIn the event this information is protected by the Federal Confidentiality of Alcohol and Drug Abuse Patient Records regulations: The Federal rules restrict any use of the information to criminally investigate or prosecute any alcohol or drug abuse patient.[facility] CenterIn the event this information is protected by the Federal Confidentiality of Alcohol and Drug Abuse Patient Records regulations: The Federal rules restrict any use of the information to criminally investigate or prosecute any alcohol or drug abuse patient.[facility] CenterIn the event this information is protected by the Federal Confidentiality of Alcohol and Drug Abuse Patient Records regulations: The Federal rules restrict any use of the information to criminally investigate or prosecute any alcohol or drug abuse patient.[facility] CenterIn the event this information is protected by the Federal Confidentiality of Alcohol and Drug Abuse Patient Records regulations: The Federal rules restrict any use of the information to criminally investigate or prosecute any alcohol or drug abuse patient.[facility] CenterIn the event this information is protected by the Federal Confidentiality of Alcohol and Drug Abuse Patient Records regulations: The Federal rules restrict any use of the information to criminally investigate or prosecute any alcohol or drug abuse patient.[facility] CenterIn the event this information is protected by the Federal Confidentiality of Alcohol and Drug Abuse Patient Records regulations: The Federal rules restrict any use of the information to criminally investigate or prosecute any alcohol or drug abuse patient.[facility] CenterIn the event this information is protected by the Federal Confidentiality of Alcohol and Drug Abuse Patient Records regulations: The Federal rules restrict any use of the information to criminally investigate or prosecute any alcohol or drug abuse patient.[facility] CenterIn the event this information is protected by the Federal Confidentiality of Alcohol and Drug Abuse Patient Records regulations: The Federal rules restrict any use of the information to criminally investigate or prosecute any alcohol or drug abuse patient.[facility] CenterIn the event this information is protected by the Federal Confidentiality of Alcohol and Drug Abuse Patient Records regulations: The Federal rules restrict any use of the information to criminally investigate or prosecute any alcohol or drug abuse patient.[facility] CenterIn the event this information is protected by the Federal Confidentiality of Alcohol and Drug Abuse Patient Records regulations: The Federal rules restrict any use of the information to criminally investigate or prosecute any alcohol or drug abuse patient.[facility] CenterIn the event this information is protected by the Federal Confidentiality of Alcohol and Drug Abuse Patient Records regulations: The Federal rules restrict any use of the information to criminally investigate or prosecute any alcohol or drug abuse patient.[facility] CenterIn the event this information is protected by the Federal Confidentiality of Alcohol and Drug Abuse Patient Records regulations: The Federal rules restrict any use of the information to criminally investigate or prosecute any alcohol or drug abuse patient.[facility] CenterIn the event this information is protected by the Federal Confidentiality of Alcohol and Drug Abuse Patient Records regulations: The Federal rules restrict any use of the information to criminally investigate or prosecute any alcohol or drug abuse patient.[facility] CenterIn the event this information is protected by the Federal Confidentiality of Alcohol and Drug Abuse Patient Records regulations: The Federal rules restrict any use of the information to criminally investigate or prosecute any alcohol or drug abuse patient.[facility] CenterIn the event this information is protected by the Federal Confidentiality of Alcohol and Drug Abuse Patient Records regulations: The Federal rules restrict any use of the information to criminally investigate or prosecute any alcohol or drug abuse patient.[facility] CenterIn the event this information is protected by the Federal Confidentiality of Alcohol and Drug Abuse Patient Records regulations: The Federal rules restrict any use of the information to criminally investigate or prosecute any alcohol or drug abuse patient.[facility] CenterIn the event this information is protected by the Federal Confidentiality of Alcohol and Drug Abuse Patient Records regulations: The Federal rules restrict any use of the information to criminally investigate or prosecute any alcohol or drug abuse patient.[facility] CenterIn the event this information is protected by the Federal Confidentiality of Alcohol and Drug Abuse Patient Records regulations: The Federal rules restrict any use of the information to criminally investigate or prosecute any alcohol or drug abuse patient.[facility] CenterIn the event this information is protected by the Federal Confidentiality of Alcohol and Drug Abuse Patient Records regulations: The Federal rules restrict any use of the information to criminally investigate or prosecute any alcohol or drug abuse patient.[facility] CenterIn the event this information is protected by the Federal Confidentiality of Alcohol and Drug Abuse Patient Records regulations: The Federal rules restrict any use of the information to criminally investigate or prosecute any alcohol or drug abuse patient.[facility] CenterIn the event this information is protected by the Federal Confidentiality of Alcohol and Drug Abuse Patient Records regulations: The Federal rules restrict any use of the information to criminally investigate or prosecute any alcohol or drug abuse patient.[facility] CenterIn the event this information is protected by the Federal Confidentiality of Alcohol and Drug Abuse Patient Records regulations: The Federal rules restrict any use of the information to criminally investigate or prosecute any alcohol or drug abuse patient.[facility] CenterIn the event this information is protected by the Federal Confidentiality of Alcohol and Drug Abuse Patient Records regulations: The Federal rules restrict any use of the information to criminally investigate or prosecute any alcohol or drug abuse patient.[facility] CenterIn the event this information is protected by the Federal Confidentiality of Alcohol and Drug Abuse Patient Records regulations: The Federal rules restrict any use of the information to criminally investigate or prosecute any alcohol or drug abuse patient.[facility] CenterIn the event this information is protected by the Federal Confidentiality of Alcohol and Drug Abuse Patient Records regulations: The Federal rules restrict any use of the information to criminally investigate or prosecute any alcohol or drug abuse patient.[facility] CenterIn the event this information is protected by the Federal Confidentiality of Alcohol and Drug Abuse Patient Records regulations: The Federal rules restrict any use of the information to criminally investigate or prosecute any alcohol or drug abuse patient.[facility] CenterIn the event this information is protected by the Federal Confidentiality of Alcohol and Drug Abuse Patient Records regulations: The Federal rules restrict any use of the information to criminally investigate or prosecute any alcohol or drug abuse patient.[facility] CenterIn the event this information is protected by the Federal Confidentiality of Alcohol and Drug Abuse Patient Records regulations: The Federal rules restrict any use of the information to criminally investigate or prosecute any alcohol or drug abuse patient.[facility] CenterIn the event this information is protected by the Federal Confidentiality of Alcohol and Drug Abuse Patient Records regulations: The Federal rules restrict any use of the information to criminally investigate or prosecute any alcohol or drug abuse patient.[facility] CenterIn the event this information is protected by the Federal Confidentiality of Alcohol and Drug Abuse Patient Records regulations: The Federal rules restrict any use of the information to criminally investigate or prosecute any alcohol or drug abuse patient.[facility] CenterIn the event this information is protected by the Federal Confidentiality of Alcohol and Drug Abuse Patient Records regulations: The Federal rules restrict any use of the information to criminally investigate or prosecute any alcohol or drug abuse patient.[facility] CenterIn the event this information is protected by the Federal Confidentiality of Alcohol and Drug Abuse Patient Records regulations: The Federal rules restrict any use of the information to criminally investigate or prosecute any alcohol or drug abuse patient.[facility] CenterIn the event this information is protected by the Federal Confidentiality of Alcohol and Drug Abuse Patient Records regulations: The Federal rules restrict any use of the information to criminally investigate or prosecute any alcohol or drug abuse patient.[facility] CenterIn the event this information is protected by the Federal Confidentiality of Alcohol and Drug Abuse Patient Records regulations: The Federal rules restrict any use of the information to criminally investigate or prosecute any alcohol or drug abuse patient.[facility] CenterIn the event this information is protected by the Federal Confidentiality of Alcohol and Drug Abuse Patient Records regulations: The Federal rules restrict any use of the information to criminally investigate or prosecute any alcohol or drug abuse patient.[facility] CenterIn the event this information is protected by the Federal Confidentiality of Alcohol and Drug Abuse Patient Records regulations: The Federal rules restrict any use of the information to criminally investigate or prosecute any alcohol or drug abuse patient.[facility] CenterIn the event this information is protected by the Federal Confidentiality of Alcohol and Drug Abuse Patient Records regulations: The Federal rules restrict any use of the information to criminally investigate or prosecute any alcohol or drug abuse patient.[facility] CenterIn the event this information is protected by the Federal Confidentiality of Alcohol and Drug Abuse Patient Records regulations: The Federal rules restrict any use of the information to criminally investigate or prosecute any alcohol or drug abuse patient.[facility] CenterIn the event this information is protected by the Federal Confidentiality of Alcohol and Drug Abuse Patient Records regulations: The Federal rules restrict any use of the information to criminally investigate or prosecute any alcohol or drug abuse patient.[facility] CenterIn the event this information is protected by the Federal Confidentiality of Alcohol and Drug Abuse Patient Records regulations: The Federal rules restrict any use of the information to criminally investigate or prosecute any alcohol or drug abuse patient.[facility] CenterIn the event this information is protected by the Federal Confidentiality of Alcohol and Drug Abuse Patient Records regulations: The Federal rules restrict any use of the information to criminally investigate or prosecute any alcohol or drug abuse patient.[facility] CenterIn the event this information is protected by the Federal Confidentiality of Alcohol and Drug Abuse Patient Records regulations: The Federal rules restrict any use of the information to criminally investigate or prosecute any alcohol or drug abuse patient.[facility] CenterIn the event this information is protected by the Federal Confidentiality of Alcohol and Drug Abuse Patient Records regulations: The Federal rules restrict any use of the information to criminally investigate or prosecute any alcohol or drug abuse patient.[facility] CenterIn the event this information is protected by the Federal Confidentiality of Alcohol and Drug Abuse Patient Records regulations: The Federal rules restrict any use of the information to criminally investigate or prosecute any alcohol or drug abuse patient.[facility] CenterIn the event this information is protected by the Federal Confidentiality of Alcohol and Drug Abuse Patient Records regulations: The Federal rules restrict any use of the information to criminally investigate or prosecute any alcohol or drug abuse patient.[facility] CenterIn the event this information is protected by the Federal Confidentiality of Alcohol and Drug Abuse Patient Records regulations: The Federal rules restrict any use of the information to criminally investigate or prosecute any alcohol or drug abuse patient.[facility] CenterIn the event this information is protected by the Federal Confidentiality of Alcohol and Drug Abuse Patient Records regulations: The Federal rules restrict any use of the information to criminally investigate or prosecute any alcohol or drug abuse patient.[facility] CenterIn the event this information is protected by the Federal Confidentiality of Alcohol and Drug Abuse Patient Records regulations: The Federal rules restrict any use of the information to criminally investigate or prosecute any alcohol or drug abuse patient.[facility] CenterIn the event this information is protected by the Federal Confidentiality of Alcohol and Drug Abuse Patient Records regulations: The Federal rules restrict any use of the information to criminally investigate or prosecute any alcohol or drug abuse patient.[facility] CenterIn the event this information is protected by the Federal Confidentiality of Alcohol and Drug Abuse Patient Records regulations: The Federal rules restrict any use of the information to criminally investigate or prosecute any alcohol or drug abuse patient.[facility] CenterIn the event this information is protected by the Federal Confidentiality of Alcohol and Drug Abuse Patient Records regulations: The Federal rules restrict any use of the information to criminally investigate or prosecute any alcohol or drug abuse patient.[facility] CenterIn the event this information is protected by the Federal Confidentiality of Alcohol and Drug Abuse Patient Records regulations: The Federal rules restrict any use of the information to criminally investigate or prosecute any alcohol or drug abuse patient.[facility] CenterIn the event this information is protected by the Federal Confidentiality of Alcohol and Drug Abuse Patient Records regulations: The Federal rules restrict any use of the information to criminally investigate or prosecute any alcohol or drug abuse patient.[facility] CenterIn the event this information is protected by the Federal Confidentiality of Alcohol and Drug Abuse Patient Records regulations: The Federal rules restrict any use of the information to criminally investigate or prosecute any alcohol or drug abuse patient.[facility] CenterIn the event this information is protected by the Federal Confidentiality of Alcohol and Drug Abuse Patient Records regulations: The Federal rules restrict any use of the information to criminally investigate or prosecute any alcohol or drug abuse patient.[facility] CenterIn the event this information is protected by the Federal Confidentiality of Alcohol and Drug Abuse Patient Records regulations: The Federal rules restrict any use of the information to criminally investigate or prosecute any alcohol or drug abuse patient.[facility] CenterIn the event this information is protected by the Federal Confidentiality of Alcohol and Drug Abuse Patient Records regulations: The Federal rules restrict any use of the information to criminally investigate or prosecute any alcohol or drug abuse patient.[facility] CenterIn the event this information is protected by the Federal Confidentiality of Alcohol and Drug Abuse Patient Records regulations: The Federal rules restrict any use of the information to criminally investigate or prosecute any alcohol or drug abuse patient.[facility] CenterIn the event this information is protected by the Federal Confidentiality of Alcohol and Drug Abuse Patient Records regulations: The Federal rules restrict any use of the information to criminally investigate or prosecute any alcohol or drug abuse patient.[facility] CenterIn the event this information is protected by the Federal Confidentiality of Alcohol and Drug Abuse Patient Records regulations: The Federal rules restrict any use of the information to criminally investigate or prosecute any alcohol or drug abuse patient.[facility]In the event this information is protected by the Federal Confidentiality of Alcohol and Drug Abuse Patient Records regulations: The Federal rules restrict any use of the information to criminally investigate or prosecute any alcohol or drug abuse patient.[facility] CenterIn the event this information is protected by the Federal Confidentiality of Alcohol and Drug Abuse Patient Records regulations: The Federal rules restrict any use of the information to criminally investigate or prosecute any alcohol or drug abuse patient.[facility]In the event this information is protected by the Federal Confidentiality of Alcohol and Drug Abuse Patient Records regulations: The Federal rules restrict any use of the information to criminally investigate or prosecute any alcohol or drug abuse patient.[facility]In the event this information is protected by the Federal Confidentiality of Alcohol and Drug Abuse Patient Records regulations: The Federal rules restrict any use of the information to criminally investigate or prosecute any alcohol or drug abuse patient.[facility]In the event this information is protected by the Federal Confidentiality of Alcohol and Drug Abuse Patient Records regulations: The Federal rules restrict any use of the information to criminally investigate or prosecute any alcohol or drug abuse patient.[facility] CenterIn the event this information is protected by the Federal Confidentiality of Alcohol and Drug Abuse Patient Records regulations: The Federal rules restrict any use of the information to criminally investigate or prosecute any alcohol or drug abuse patient.[facility]In the event this information is protected by the Federal Confidentiality of Alcohol and Drug Abuse Patient Records regulations: The Federal rules restrict any use of the information to criminally investigate or prosecute any alcohol or drug abuse patient.[facility]In the event this information is protected by the Federal Confidentiality of Alcohol and Drug Abuse Patient Records regulations: The Federal rules restrict any use of the information to criminally investigate or prosecute any alcohol or drug abuse patient.[facility]In the event this information is protected by the Federal Confidentiality of Alcohol and Drug Abuse Patient Records regulations: The Federal rules restrict any use of the information to criminally investigate or prosecute any alcohol or drug abuse patient.[facility]In the event this information is protected by the Federal Confidentiality of Alcohol and Drug Abuse Patient Records regulations: The Federal rules restrict any use of the information to criminally investigate or prosecute any alcohol or drug abuse patient.[facility]In the event this information is protected by the Federal Confidentiality of Alcohol and Drug Abuse Patient Records regulations: The Federal rules restrict any use of the information to criminally investigate or prosecute any alcohol or drug abuse patient.[facility]In the event this information is protected by the Federal Confidentiality of Alcohol and Drug Abuse Patient Records regulations: The Federal rules restrict any use of the information to criminally investigate or prosecute any alcohol or drug abuse patient.[facility]In the event this information is protected by the Federal Confidentiality of Alcohol and Drug Abuse Patient Records regulations: The Federal rules restrict any use of the information to criminally investigate or prosecute any alcohol or drug abuse patient.[facility]In the event this information is protected by the Federal Confidentiality of Alcohol and Drug Abuse Patient Records regulations: The Federal rules restrict any use of the information to criminally investigate or prosecute any alcohol or drug abuse patient.[facility]In the event this information is protected by the Federal Confidentiality of Alcohol and Drug Abuse Patient Records regulations: The Federal rules restrict any use of the information to criminally investigate or prosecute any alcohol or drug abuse patient.[facility]In the event this information is protected by the Federal Confidentiality of Alcohol and Drug Abuse Patient Records regulations: The Federal rules restrict any use of the information to criminally investigate or prosecute any alcohol or drug abuse patient.[facility]In the event this information is protected by the Federal Confidentiality of Alcohol and Drug Abuse Patient Records regulations: The Federal rules restrict any use of the information to criminally investigate or prosecute any alcohol or drug abuse patient.[facility]In the event this information is protected by the Federal Confidentiality of Alcohol and Drug Abuse Patient Records regulations: The Federal rules restrict any use of the information to criminally investigate or prosecute any alcohol or drug abuse patient.[facility]In the event this information is protected by the Federal Confidentiality of Alcohol and Drug Abuse Patient Records regulations: The Federal rules restrict any use of the information to criminally investigate or prosecute any alcohol or drug abuse patient.[facility]In the event this information is protected by the Federal Confidentiality of Alcohol and Drug Abuse Patient Records regulations: The Federal rules restrict any use of the information to criminally investigate or prosecute any alcohol or drug abuse patient.[facility]In the event this information is protected by the Federal Confidentiality of Alcohol and Drug Abuse Patient Records regulations: The Federal rules restrict any use of the information to criminally investigate or prosecute any alcohol or drug abuse patient.[facility]In the event this information is protected by the Federal Confidentiality of Alcohol and Drug Abuse Patient Records regulations: The Federal rules restrict any use of the information to criminally investigate or prosecute any alcohol or drug abuse patient.[facility]In the event this information is protected by the Federal Confidentiality of Alcohol and Drug Abuse Patient Records regulations: The Federal rules restrict any use of the information to criminally investigate or prosecute any alcohol or drug abuse patient.[facility]In the event this information is protected by the Federal Confidentiality of Alcohol and Drug Abuse Patient Records regulations: The Federal rules restrict any use of the information to criminally investigate or prosecute any alcohol or drug abuse patient.[facility]In the event this information is protected by the Federal Confidentiality of Alcohol and Drug Abuse Patient Records regulations: The Federal rules restrict any use of the information to criminally investigate or prosecute any alcohol or drug abuse patient.[facility]In the event this information is protected by the Federal Confidentiality of Alcohol and Drug Abuse Patient Records regulations: The Federal rules restrict any use of the information to criminally investigate or prosecute any alcohol or drug abuse patient.[facility]In the event this information is protected by the Federal Confidentiality of Alcohol and Drug Abuse Patient Records regulations: The Federal rules restrict any use of the information to criminally investigate or prosecute any alcohol or drug abuse patient.[facility]In the event this information is protected by the Federal Confidentiality of Alcohol and Drug Abuse Patient Records regulations: The Federal rules restrict any use of the information to criminally investigate or prosecute any alcohol or drug abuse patient.[facility]In the event this information is protected by the Federal Confidentiality of Alcohol and Drug Abuse Patient Records regulations: The Federal rules restrict any use of the information to criminally investigate or prosecute any alcohol or drug abuse patient.[facility]In the event this information is protected by the Federal Confidentiality of Alcohol and Drug Abuse Patient Records regulations: The Federal rules restrict any use of the information to criminally investigate or prosecute any alcohol or drug abuse patient.[facility]In the event this information is protected by the Federal Confidentiality of Alcohol and Drug Abuse Patient Records regulations: The Federal rules restrict any use of the information to criminally investigate or prosecute any alcohol or drug abuse patient.[facility]In the event this information is protected by the Federal Confidentiality of Alcohol and Drug Abuse Patient Records regulations: The Federal rules restrict any use of the information to criminally investigate or prosecute any alcohol or drug abuse patient.[facility]In the event this information is protected by the Federal Confidentiality of Alcohol and Drug Abuse Patient Records regulations: The Federal rules restrict any use of the information to criminally investigate or prosecute any alcohol or drug abuse patient.[facility]In the event this information is protected by the Federal Confidentiality of Alcohol and Drug Abuse Patient Records regulations: The Federal rules restrict any use of the information to criminally investigate or prosecute any alcohol or drug abuse patient.[facility]In the event this information is protected by the Federal Confidentiality of Alcohol and Drug Abuse Patient Records regulations: The Federal rules restrict any use of the information to criminally investigate or prosecute any alcohol or drug abuse patient.[facility]In the event this information is protected by the Federal Confidentiality of Alcohol and Drug Abuse Patient Records regulations: The Federal rules restrict any use of the information to criminally investigate or prosecute any alcohol or drug abuse patient.[facility]In the event this information is protected by the Federal Confidentiality of Alcohol and Drug Abuse Patient Records regulations: The Federal rules restrict any use of the information to criminally investigate or prosecute any alcohol or drug abuse patient.[facility]In the event this information is protected by the Federal Confidentiality of Alcohol and Drug Abuse Patient Records regulations: The Federal rules restrict any use of the information to criminally investigate or prosecute any alcohol or drug abuse patient.[facility]In the event this information is protected by the Federal Confidentiality of Alcohol and Drug Abuse Patient Records regulations: The Federal rules restrict any use of the information to criminally investigate or prosecute any alcohol or drug abuse patient.[facility]In the event this information is protected by the Federal Confidentiality of Alcohol and Drug Abuse Patient Records regulations: The Federal rules restrict any use of the information to criminally investigate or prosecute any alcohol or drug abuse patient.[facility]In the event this information is protected by the Federal Confidentiality of Alcohol and Drug Abuse Patient Records regulations: The Federal rules restrict any use of the information to criminally investigate or prosecute any alcohol or drug abuse patient.[facility]In the event this information is protected by the Federal Confidentiality of Alcohol and Drug Abuse Patient Records regulations: The Federal rules restrict any use of the information to criminally investigate or prosecute any alcohol or drug abuse patient.[facility]In the event this information is protected by the Federal Confidentiality of Alcohol and Drug Abuse Patient Records regulations: The Federal rules restrict any use of the information to criminally investigate or prosecute any alcohol or drug abuse patient.[facility]In the event this information is protected by the Federal Confidentiality of Alcohol and Drug Abuse Patient Records regulations: The Federal rules restrict any use of the information to criminally investigate or prosecute any alcohol or drug abuse patient.[facility]In the event this information is protected by the Federal Confidentiality of Alcohol and Drug Abuse Patient Records regulations: The Federal rules restrict any use of the information to criminally investigate or prosecute any alcohol or drug abuse patient.[facility]In the event this information is protected by the Federal Confidentiality of Alcohol and Drug Abuse Patient Records regulations: The Federal rules restrict any use of the information to criminally investigate or prosecute any alcohol or drug abuse patient.[facility]In the event this information is protected by the Federal Confidentiality of Alcohol and Drug Abuse Patient Records regulations: The Federal rules restrict any use of the information to criminally investigate or prosecute any alcohol or drug abuse patient.[facility]In the event this information is protected by the Federal Confidentiality of Alcohol and Drug Abuse Patient Records regulations: The Federal rules restrict any use of the information to criminally investigate or prosecute any alcohol or drug abuse patient.[facility]In the event this information is protected by the Federal Confidentiality of Alcohol and Drug Abuse Patient Records regulations: The Federal rules restrict any use of the information to criminally investigate or prosecute any alcohol or drug abuse patient.[facility]In the event this information is protected by the Federal Confidentiality of Alcohol and Drug Abuse Patient Records regulations: The Federal rules restrict any use of the information to criminally investigate or prosecute any alcohol or drug abuse patient.[facility]In the event this information is protected by the Federal Confidentiality of Alcohol and Drug Abuse Patient Records regulations: The Federal rules restrict any use of the information to criminally investigate or prosecute any alcohol or drug abuse patient.[facility]In the event this information is protected by the Federal Confidentiality of Alcohol and Drug Abuse Patient Records regulations: The Federal rules restrict any use of the information to criminally investigate or prosecute any alcohol or drug abuse patient.[facility]In the event this information is protected by the Federal Confidentiality of Alcohol and Drug Abuse Patient Records regulations: The Federal rules restrict any use of the information to criminally investigate or prosecute any alcohol or drug abuse patient.[facility]In the event this information is protected by the Federal Confidentiality of Alcohol and Drug Abuse Patient Records regulations: The Federal rules restrict any use of the information to criminally investigate or prosecute any alcohol or drug abuse patient.[facility]In the event this information is protected by the Federal Confidentiality of Alcohol and Drug Abuse Patient Records regulations: The Federal rules restrict any use of the information to criminally investigate or prosecute any alcohol or drug abuse patient.[facility]In the event this information is protected by the Federal Confidentiality of Alcohol and Drug Abuse Patient Records regulations: The Federal rules restrict any use of the information to criminally investigate or prosecute any alcohol or drug abuse patient.[facility]In the event this information is protected by the Federal Confidentiality of Alcohol and Drug Abuse Patient Records regulations: The Federal rules restrict any use of the information to criminally investigate or prosecute any alcohol or drug abuse patient.[facility]In the event this information is protected by the Federal Confidentiality of Alcohol and Drug Abuse Patient Records regulations: The Federal rules restrict any use of the information to criminally investigate or prosecute any alcohol or drug abuse patient.[facility]In the event this information is protected by the Federal Confidentiality of Alcohol and Drug Abuse Patient Records regulations: The Federal rules restrict any use of the information to criminally investigate or prosecute any alcohol or drug abuse patient.[facility]In the event this information is protected by the Federal Confidentiality of Alcohol and Drug Abuse Patient Records regulations: The Federal rules restrict any use of the information to criminally investigate or prosecute any alcohol or drug abuse patient.[facility]In the event this information is protected by the Federal Confidentiality of Alcohol and Drug Abuse Patient Records regulations: The Federal rules restrict any use of the information to criminally investigate or prosecute any alcohol or drug abuse patient.[facility]In the event this information is protected by the Federal Confidentiality of Alcohol and Drug Abuse Patient Records regulations: The Federal rules restrict any use of the information to criminally investigate or prosecute any alcohol or drug abuse patient.[facility]In the event this information is protected by the Federal Confidentiality of Alcohol and Drug Abuse Patient Records regulations: The Federal rules restrict any use of the information to criminally investigate or prosecute any alcohol or drug abuse patient.[facility]In the event this information is protected by the Federal Confidentiality of Alcohol and Drug Abuse Patient Records regulations: The Federal rules restrict any use of the information to criminally investigate or prosecute any alcohol or drug abuse patient.[facility]In the event this information is protected by the Federal Confidentiality of Alcohol and Drug Abuse Patient Records regulations: The Federal rules restrict any use of the information to criminally investigate or prosecute any alcohol or drug abuse patient.[facility]In the event this information is protected by the Federal Confidentiality of Alcohol and Drug Abuse Patient Records regulations: The Federal rules restrict any use of the information to criminally investigate or prosecute any alcohol or drug abuse patient.[facility]In the event this information is protected by the Federal Confidentiality of Alcohol and Drug Abuse Patient Records regulations: The Federal rules restrict any use of the information to criminally investigate or prosecute any alcohol or drug abuse patient.[facility]In the event this information is protected by the Federal Confidentiality of Alcohol and Drug Abuse Patient Records regulations: The Federal rules restrict any use of the information to criminally investigate or prosecute any alcohol or drug abuse patient.[facility]In the event this information is protected by the Federal Confidentiality of Alcohol and Drug Abuse Patient Records regulations: The Federal rules restrict any use of the information to criminally investigate or prosecute any alcohol or drug abuse patient.[facility]In the event this information is protected by the Federal Confidentiality of Alcohol and Drug Abuse Patient Records regulations: The Federal rules restrict any use of the information to criminally investigate or prosecute any alcohol or drug abuse patient.[facility]In the event this information is protected by the Federal Confidentiality of Alcohol and Drug Abuse Patient Records regulations: The Federal rules restrict any use of the information to criminally investigate or prosecute any alcohol or drug abuse patient.[facility]In the event this information is protected by the Federal Confidentiality of Alcohol and Drug Abuse Patient Records regulations: The Federal rules restrict any use of the information to criminally investigate or prosecute any alcohol or drug abuse patient.[facility]In the event this information is protected by the Federal Confidentiality of Alcohol and Drug Abuse Patient Records regulations: The Federal rules restrict any use of the information to criminally investigate or prosecute any alcohol or drug abuse patient.[facility]In the event this information is protected by the Federal Confidentiality of Alcohol and Drug Abuse Patient Records regulations: The Federal rules restrict any use of the information to criminally investigate or prosecute any alcohol or drug abuse patient.[facility]In the event this information is protected by the Federal Confidentiality of Alcohol and Drug Abuse Patient Records regulations: The Federal rules restrict any use of the information to criminally investigate or prosecute any alcohol or drug abuse patient.[facility]In the event this information is protected by the Federal Confidentiality of Alcohol and Drug Abuse Patient Records regulations: The Federal rules restrict any use of the information to criminally investigate or prosecute any alcohol or drug abuse patient.[facility]In the event this information is protected by the Federal Confidentiality of Alcohol and Drug Abuse Patient Records regulations: The Federal rules restrict any use of the information to criminally investigate or prosecute any alcohol or drug abuse patient.[facility]In the event this information is protected by the Federal Confidentiality of Alcohol and Drug Abuse Patient Records regulations: The Federal rules restrict any use of the information to criminally investigate or prosecute any alcohol or drug abuse patient.[facility]In the event this information is protected by the Federal Confidentiality of Alcohol and Drug Abuse Patient Records regulations: The Federal rules restrict any use of the information to criminally investigate or prosecute any alcohol or drug abuse patient.[facility]In the event this information is protected by the Federal Confidentiality of Alcohol and Drug Abuse Patient Records regulations: The Federal rules restrict any use of the information to criminally investigate or prosecute any alcohol or drug abuse patient.[facility]In the event this information is protected by the Federal Confidentiality of Alcohol and Drug Abuse Patient Records regulations: The Federal rules restrict any use of the information to criminally investigate or prosecute any alcohol or drug abuse patient.[facility]In the event this information is protected by the Federal Confidentiality of Alcohol and Drug Abuse Patient Records regulations: The Federal rules restrict any use of the information to criminally investigate or prosecute any alcohol or drug abuse patient.[facility]In the event this information is protected by the Federal Confidentiality of Alcohol and Drug Abuse Patient Records regulations: The Federal rules restrict any use of the information to criminally investigate or prosecute any alcohol or drug abuse patient.[facility] CenterIn the event this information is protected by the Federal Confidentiality of Alcohol and Drug Abuse Patient Records regulations: The Federal rules restrict any use of the information to criminally investigate or prosecute any alcohol or drug abuse patient.[facility] CenterIn the event this information is protected by the Federal Confidentiality of Alcohol and Drug Abuse Patient Records regulations: The Federal rules restrict any use of the information to criminally investigate or prosecute any alcohol or drug abuse patient.[facility] CenterIn the event this information is protected by the Federal Confidentiality of Alcohol and Drug Abuse Patient Records regulations: The Federal rules restrict any use of the information to criminally investigate or prosecute any alcohol or drug abuse patient.[facility] CenterIn the event this information is protected by the Federal Confidentiality of Alcohol and Drug Abuse Patient Records regulations: The Federal rules restrict any use of the information to criminally investigate or prosecute any alcohol or drug abuse patient.[facility] CenterIn the event this information is protected by the Federal Confidentiality of Alcohol and Drug Abuse Patient Records regulations: The Federal rules restrict any use of the information to criminally investigate or prosecute any alcohol or drug abuse patient.[facility] CenterIn the event this information is protected by the Federal Confidentiality of Alcohol and Drug Abuse Patient Records regulations: The Federal rules restrict any use of the information to criminally investigate or prosecute any alcohol or drug abuse patient.[facility] CenterIn the event this information is protected by the Federal Confidentiality of Alcohol and Drug Abuse Patient Records regulations: The Federal rules restrict any use of the information to criminally investigate or prosecute any alcohol or drug abuse patient.[facility] CenterIn the event this information is protected by the Federal Confidentiality of Alcohol and Drug Abuse Patient Records regulations: The Federal rules restrict any use of the information to criminally investigate or prosecute any alcohol or drug abuse patient.[facility] CenterIn the event this information is protected by the Federal Confidentiality of Alcohol and Drug Abuse Patient Records regulations: The Federal rules restrict any use of the information to criminally investigate or prosecute any alcohol or drug abuse patient.[facility] CenterIn the event this information is protected by the Federal Confidentiality of Alcohol and Drug Abuse Patient Records regulations: The Federal rules restrict any use of the information to criminally investigate or prosecute any alcohol or drug abuse patient.[facility] CenterIn the event this information is protected by the Federal Confidentiality of Alcohol and Drug Abuse Patient Records regulations: The Federal rules restrict any use of the information to criminally investigate or prosecute any alcohol or drug abuse patient.[facility] CenterIn the event this information is protected by the Federal Confidentiality of Alcohol and Drug Abuse Patient Records regulations: The Federal rules restrict any use of the information to criminally investigate or prosecute any alcohol or drug abuse patient.[facility] CenterIn the event this information is protected by the Federal Confidentiality of Alcohol and Drug Abuse Patient Records regulations: The Federal rules restrict any use of the information to criminally investigate or prosecute any alcohol or drug abuse patient.[facility] CenterIn the event this information is protected by the Federal Confidentiality of Alcohol and Drug Abuse Patient Records regulations: The Federal rules restrict any use of the information to criminally investigate or prosecute any alcohol or drug abuse patient.[facility] CenterIn the event this information is protected by the Federal Confidentiality of Alcohol and Drug Abuse Patient Records regulations: The Federal rules restrict any use of the information to criminally investigate or prosecute any alcohol or drug abuse patient.[facility] CenterIn the event this information is protected by the Federal Confidentiality of Alcohol and Drug Abuse Patient Records regulations: The Federal rules restrict any use of the information to criminally investigate or prosecute any alcohol or drug abuse patient.[facility] CenterIn the event this information is protected by the Federal Confidentiality of Alcohol and Drug Abuse Patient Records regulations: The Federal rules restrict any use of the information to criminally investigate or prosecute any alcohol or drug abuse patient.[facility] CenterIn the event this information is protected by the Federal Confidentiality of Alcohol and Drug Abuse Patient Records regulations: The Federal rules restrict any use of the information to criminally investigate or prosecute any alcohol or drug abuse patient.[facility] CenterIn the event this information is protected by the Federal Confidentiality of Alcohol and Drug Abuse Patient Records regulations: The Federal rules restrict any use of the information to criminally investigate or prosecute any alcohol or drug abuse patient.[facility] Reason for Visit (unrecogniz ed section and content) Reason Comments PT Progress Note Specialty Diagnoses / Procedures Referred By Contac t Referred To Contact PHYSICAL THERAPY Diagnoses Closed wedge compression fracture of T10 vertebra with routine healing, subsequent encounter Malignant neoplasm of lower third of esophagus (HCC) Strain of thoracic paraspinal muscles excluding T1 and T2 levels, sequela Kyphosis (acquired) (postural) Procedures CONSULT TO PHYSICAL THERAPY PHYSICAL THERAPY EVALUATION HIGH COMPLEX 45 MINS Jesus Manuel Resendiz PA-C [address] [place] [address] Pt [facility] [address] [place] [address] Referral ID Status Reason Start Date Expiration Date Visits Requested Visits Authorized [id number] Authorized PCP Requested Referral Auto-Generate d Referral 07/12/2023 07/11/2024 99 99 Reason Comments Established Patient Reason Comments Results Reason Comments Chemotherapy Treatment Specialty Diagnoses / Procedures Referred By Contac t Referred To Contact Diagnoses Malignant neoplasm of lower third of esophagus (HCC) Esophageal adenocarcinoma (HCC) Richard Jenkins, DO [address] [place] [address] [facility] [address] [place] [address] Referral ID Status Reason Start Date Expiration Date V isits Requested Visits Authorized [id number] Authorized 07/14/2021 10/12/2021 99 99 Specialty Diagnoses / Procedures Referred By Contac t Referred To Contact Diagnoses Malignant neoplasm of lower third of esophagus (HCC) Esophageal adenocarcinoma (HCC) Richard Jenkins, DO [address] [facility] [place] [address] [facility] [address] [place] [address] Reason Comments Results Add T4 Specialty Diagnoses / Procedures Referred By Contac t Referred To Contact CT IMAGING Diagnoses Malignant neoplasm of lower third of esophagus (HCC) Pleural effusion Procedures CT CHEST W IVCON DIAGNOSTIC COMPUTED TOMOGRAPHY THORAX W/CONTRAST Mari Akhtar, RAILROAD CONDUCTOR.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 [address] [place] [address] Ct Imaging Referral ID Status Reason Start Date Expiration Date V isits Requested Visits Authorized [id number] Closed Auto-Generate d Referral 08/24/2021 09/23/2022 1 1 Reason Comments Recheck review labs Reason Comments Established Patient Reason Comments Appointment Confirmation Reason Comments Post Op Reason Comments Patient Question Reason Comments Established Patient SCP Reason Comments Medicare Wellness Exam Reason Comments Nasal Congestion Pt reported nasal co ngestion , x3 days. Reason Comments Hematuria Reason Comments Future Appointment Reason Comments Rib Injury R sided rib and ches t wall injury x1 day Reason Comments Appointment Reason Comments ER and Imaging Reason Comments 6 Month Exam Reason Comments Consult Reason Comments Radiology CT Specialty Diagnoses / Procedures Referred By Contac t Referred To Contact CT IMAGING Diagnoses Malignant neoplasm of lower third of esophagus (HCC) Procedures CT CHEST W IVCON DIAGNOSTIC COMPUTED TOMOGRAPHY THORAX W/CONTRAST Richard Jenkins, DO [address] [place] [address] [place] [address] Referral ID Status Reason Start Date Expiration Date V isits Requested Visits Authorized [id number] Closed Auto-Generate d Referral 11/02/2021 12/02/2022 1 1 Specialty Diagnoses / Procedures Referred By Contac t Referred To Contact CT IMAGING Diagnoses Malignant neoplasm of lower third of esophagus (HCC) Procedures CT CHEST W IVCON DIAGNOSTIC COMPUTED TOMOGRAPHY THORAX W/CONTRAST Mari Akhtar, ADALGISA.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 [address] [place] [address] [place] [address] Referral ID Status Reason Start Date Expiration Date V isits Requested Visits Authorized [id number] Closed Auto-Generate d Referral 02/22/2022 03/24/2023 [address] Specialty Diagnoses / Procedures Referred By Contac t Referred To Contact CT IMAGING Diagnoses Malignant neoplasm of lower third of esophagus (HCC) Procedures CT CHEST W IVCON DIAGNOSTIC COMPUTED TOMOGRAPHY THORAX W/CONTRAST Richard Jenkins, DO [address] [place] [address] [place] [address] Referral ID Status Reason Start Date Expiration Date V isits Requested Visits Authorized [id number] Closed Auto-Generate d Referral 08/22/2022 09/21/2023 1 1 Reason Comments Results Follow Up Reason Comments Cough Cough, sinus, conges tion and ST x 4 days-runny nose x 3 weeks Reason Comments Results MRI thoracic spine Reason Onset Date Comments Refill Request 05/29/2023 Reason Comments Patient Question Reason Comments Back Pain X 6 months Reason Comments Radiology NM Specialty Diagnoses / Procedures Referred By Contac t Referred To Contact MOLECULAR & FUNCTIONAL IMAGING Diagnoses RUQ pain Nausea Procedures NM HEPATOBILIARY W EF AND/OR RX HEPATOBIL SYST IMAG INC GB W/PHARMA INTERVENJ Usha Mcgovern PA-C [address] [place] [address] Molecular & Functional Imaging [address] [place] [address] Referral ID Status Reason Start Date Expiration Date V isits Requested Visits Authorized [id number] Closed Auto-Generate d Referral 06/19/2023 07/18/2024 1 1 Reason Comments Radiology US Specialty Diagnoses / Procedures Referred By Contac t Referred To Contact US IMAGING Diagnoses RUQ pain Nausea Procedures US ABD RIGHT UPPER QUADRANT US ABDOMINAL REAL TIME W/IMAGE LIMITED Usha Mcgovern PA-C [address] [place] [address] Us Imaging [place] [address] Referral ID Status Reason Start Date Expiration Date V isits Requested Visits Authorized [id number] Closed Auto-Generate d Referral 06/19/2023 07/18/2024 1 1 Reason Comments New Patient Low Back Pain Back Pain middle Back Pain (Upper Back) Specialty Diagnoses / Procedures Referred By Contac t Referred To Contact Spine Dickens Diagnoses Closed wedge compression fracture of T10 vertebra with routine healing, subsequent encounter Procedures CONSULT TO [facility] OFFICE/OUTPATIENT NEW HIGH MDM 60 MINUTES Richard Jenkins, DO [address] [place] [address] Referral ID Status Reason Start Date Expiration Date V isits Requested Visits Authorized [id number] Closed PCP Requested Referral 06/18/2023 06/17/2024 1 1 Reason Comments Patient Question Reason Comments PT Eval Specialty Diagnoses / Procedures Referred By Contac t Referred To Contact CT IMAGING Diagnoses Malignant neoplasm of lower third of esophagus (HCC) Procedures CT ABD/PEL W IVCON CT ABD & PELVIS W/CONTRAST Richard Jenkins DO [address] [place] [address] [place] [address] Referral ID Status Reason Start Date Expiration Date V isits Requested Visits Authorized [id number] Closed Auto-Generate d Referral 07/19/2023 08/17/2024 1 1 Specialty Diagnoses / Procedures Referred By Contac t Referred To Contact CT IMAGING Diagnoses Malignant neoplasm of lower third of esophagus (HCC) Procedures CT ABD/PEL W IVCON CT ABD & PELVIS W/CONTRAST Richard Jenkins, DO [address] [place] [address] [place] [address] Reason Comments AVS 08/10/23 Reason Comments Established Patient Specialty Diagnoses / Procedures Referred By Contac t Referred To Contact MR IMAGING Diagnoses Pathological fracture of thoracic vertebra, initial encounter Procedures MRI THORACIC SPINE WO/W IVCON MRI SPINAL CANAL THORACIC W/O & W/CONTR MATRL Richard Jenkins, DO [address] [place] [address] [place] [address] Referral ID Status Reason Start Date Expiration Date V isits Requested Visits Authorized [id number] Closed Auto-Generate d Referral 08/10/2023 09/08/2024 1 1 Reason Comments ER F/U [facility] ER 09/10/23 Reason Comments Patient Update Reason Comments Biopsy Request Bone Biopsy Reason Comments F/U 6 months Reason Comments Results Reason Comments Shortness of Breath Chronic pleural effu murray Reason Comments Hospital F/U [facility] Reason Comments Consult [facility] admitted Reason Comments Outside EGD Reason Comments Hospital Admission [facility] Reason Comments Outside H&P Outside Nephrology Reason Comments Home Health Orders Reason Comments Orders Reason Comments Patient Update from home health Reason Comments Hospital F/U Reason Comments update on patient Reason Comments Established Patient Reason Comments Follow Up Reason Comments Patient Update Patient Question Reason Comments Asthma F/U 6 Month Reason Comments ER Discharge Summary H&P Specialty Diagnoses / Procedures Referred By Contac t Referred To Contact CT IMAGING Diagnoses Malignant neoplasm of lower third of esophagus (HCC) Procedures CT ABD/PEL WO IVCON CT ABD & PELVIS W/O CONTRAST Richard Jenkins, DO [address] [place] [address] [place] [address] Referral ID Status Reason Start Date Expiration Date V isits Requested Visits Authorized [id number] Closed Auto-Generate d Referral 01/15/2024 02/13/2025 1 1 Specialty Diagnoses / Procedures Referred By Nahomy t Referred To Contact CT IMAGING Diagnoses Malignant neoplasm of lower third of esophagus (HCC) Procedures CT ABD/PEL WO IVCON CT ABD & PELVIS W/O CONTRAST Richard Jenkins, DO [address] [place] [address] [place] [address] Reason Comments Outside Imaging Reason Comments Outside Cardiology Reason Comments Established Patient Reason Comments dog scratches on hands X 2 days Specialty Diagnoses / Procedures Referred By Nahomy t Referred To Contact MR IMAGING Diagnoses Malignant neoplasm of lower third of esophagus (HCC) Closed wedge compression fracture of T10 vertebra with delayed healing, subsequent encounter Procedures MRI THORACIC SPINE WO/W IVCON MRI SPINAL CANAL THORACIC W/O & W/CONTR MATRL Richard Jenkins, DO [address] [place] [address] [place] [address] Referral ID Status Reason Start Date Expiration Date V isits Requested Visits Authorized [id number] Closed Auto-Generate d Referral 05/02/2024 06/01/2025 1 1 Reason Comments Referral - Kidney Txp Reason Comments Outside [id number] Ordered Reason Comments Referral - Kidney Txp Reason Comments Results Outside labs Reason Comments Patient Education Specialty Diagnoses / Procedures Referred By Nahomy santiago Referred To Contact TRANSPLANT Diagnoses ESRD on dialysis (HCC) Pre-transplant evaluation for ESRD (end stage renal disease) Procedures CONSULT TO [facility] OFFICE/OUTPATIENT NEW HIGH MDM 60 MINUTES CHEST X-RAY, FRONT&LAT ECG ROUTINE ECG W/LEAST 12 LDS TRCG ONLY W/O I&R CT ANGIOGRAPHY CHEST W/CONTRAST/NONCONTRAST CT ABDOMEN W & W/O CONTRAST Maria Victoria Scott MD [address] [place] [address] Phone: tel: fax: [facility] [address] [place] [address] Phone: tel: Referral ID Status Reason Start Date Expiration Date Visits Requested Visits Authorized [id number] Authorized Financial Clearance Required - OON Payor Patient Cleared - INN Insurance Found 05/27/2024 05/27/2025 99 99 Reason Comments Follow Up Psychosocial Eval Reason Comments Breast Problem Reason Comments Consult Outside consults Reason Comments Refill Request Reason Comments Consult General Surgery - F/ U AVF Reason Comments Derm Problem left forearm scratch ed by puppy last night Reason Comments Low Back Pain x this am, mowing la st week Reason Onset Date Comments Refill Request 09/08/2024 Reason Comments Animal Bite L arm scratches x th is AM, fistula in L arm Reason Comments ER Discharge Summary Reason Onset Date Comments Results 09/09/2024 MRI without cont rast Reason Comments Discussion Reason Comments Orders Reason Comments 6 Month Exam Reason Onset Date Comments Results 10/08/2024 Reason Comments Pituitary Problem Specialty Diagnoses / Procedures Referred By Contac t Referred To Contact Endocrinology Diagnoses Gynecomastia Elevated prolactin level Follicle stimulating hormone excess Procedures CONSULT TO ENDOCRINOLOGY OFFICE/OUTPATIENT [facility] 60 MINUTES Yaw Singh MD [address] [place] [address] Phone: tel: fax: Referral ID Status Reason Start Date Expiration Date V isits Requested Visits Authorized [id number] Closed PCP Requested Referral 09/26/2024 09/26/2025 1 1 Specialty Diagnoses / Procedures Referred By Contac t Referred To Contact CT IMAGING Diagnoses Malignant neoplasm of lower third of esophagus (HCC) Procedures CT ABD/PEL WO IVCON CT ABD & PELVIS W/O CONTRAST Richard Jenkins, DO [address] [place] [address] Phone: tel: fax: [place] [address] Referral ID Status Reason Start Date Expiration Date V isits Requested Visits Authorized [id number] Closed Auto-Generate d Referral 05/02/2024 06/01/2025 1 1 Reason Onset Date Comments Population Health Navigation Outreach 11/05/2024 [employer] CHEEMA PCSA Reason Comments avs 8 Reason Onset Date Comments Refill Request 12/22/2024 Reason Comments Cough Cough, sinus, conges tion and runny nose x 3 weeks Care Teams (unrecognized sec tion and content) Demand Planning Analyst Relationship Specialty Start Date End Date Yaw Singh MD [address] [facility] [place] [address] PCP - General Family Practice 08/27/20 Madan Roy MD, [address] [facility] [place] [address] Physician Radiation Oncology 04/28/20 Luly Gaffney RN Specialty Airport Utility Worker Oncology 05/18/20 Richard Jenkins, DO [address] [facility] [place] [address] Referring Hematology/Oncology 05/25/20 Ludin, Caroleen S [address] [place] [address] Cardiology 06/24/20 Sena Seymour LISW Sueding Machine Tender 10/06/20 Demand Planning Analyst Relationship Specialty Start Date End Date Yaw Singh MD [address] [facility] [place] [address] PCP - General Family Practice 08/27/20 Madan Roy MD, [address] [facility] [place] [address] Physician Radiation Oncology 04/28/20 Luly Gaffney RN Specialty Airport Utility Worker Oncology 05/18/20 Richard Jenkins, DO [address] [facility] [place] [address] Referring Hematology/Oncology 05/25/20 Ludin, Haroldo S [address] [place] [address] Cardiology 06/24/20 Sena Seymour LISW Sueding Machine Tender 10/06/20 Demand Planning Analyst Relationship Specialty Start Date End Date Yaw Singh MD [address] [facility] [place] [address] PCP - General Family Practice 08/27/20 Madan Roy MD, [address] [facility] [place] [address] Physician Radiation Oncology 04/28/20 Luly Gaffney RN Specialty Airport Utility Worker Oncology 05/18/20 Richard Jenkins, DO [address] [facility] [place] [address] Referring Hematology/Oncology 05/25/20 Ludin, Haroldo S [address] [place] [address] Cardiology 06/24/20 Sena Seymour LISW Sueding Machine Tender 10/06/20 Demand Planning Analyst Relationship Specialty Start Date End Date Yaw Singh MD [address] [facility] [place] [address] PCP - General Family Practice 08/27/20 Madan Roy MD, [address] [facility] [place] [address] Physician Radiation Oncology 04/28/20 Luly Gaffney RN Specialty Airport Utility Worker Oncology 05/18/20 Richard Jenkins, DO [address] [facility] [place] [address] Referring Hematology/Oncology 05/25/20 Ludin, Caroleen S [address] [facility] [address] [place] [address] Cardiology 06/24/20 Sena Seymour LISW Sueding Machine Tender 10/06/20 Demand Planning Analyst Relationship Specialty Start Date End Date Yaw Singh MD [address] [facility] [place] [address] PCP - General Family Practice 08/27/20 Madan Roy MD, [address] [facility] [place] [address] Physician Radiation Oncology 04/28/20 Luly Gaffney RN Specialty Airport Utility Worker Oncology 05/18/20 Richard Jenkins, DO [address] [place] [address] Referring Hematology/Oncology 05/25/20 Ludin, Caroleen S [address] [facility] [address] [place] [address] Cardiology 06/24/20 Sena Seymour LISW Sueding Machine Tender 10/06/20 Demand Planning Analyst Relationship Specialty Start Date End Date Yaw Singh MD [address] [facility] [place] [address] PCP - General Family Practice 08/27/20 Madan Roy MD, [address] [facility] [place] [address] Physician Radiation Oncology 04/28/20 Luly Gaffney, RN Specialty Airport Utility Worker Oncology 05/18/20 Richard Jenkins, DO [address] [facility] [place] [address] Referring Hematology/Oncology 05/25/20 Ludin, Caroleen S [address] [facility] [facility] [address] [place] [address] Cardiology 06/24/20 Sena Seymour LISW Sueding Machine Tender 10/06/20 Demand Planning Analyst Relationship Specialty Start Date End Date Yaw Singh MD [address] [facility] [place] [address] PCP - General Family Practice 08/27/20 Madan Roy MD, [address] [facility] [place] [address] Physician Radiation Oncology 04/28/20 Luly Gaffney RN Specialty Airport Utility Worker Oncology 05/18/20 Richard Jenkins, DO [address] [facility] [place] [address] Referring Hematology/Oncology 05/25/20 Ludin, Caroleen S [address] [place] [address] Cardiology 06/24/20 Sena Seymour LISW Sueding Machine Tender 10/06/20 Demand Planning Analyst Relationship Specialty Start Date End Date Yaw Singh MD [address] [facility] [place] [address] PCP - General Family Practice 08/27/20 Madan Roy MD, [address] [place] [address] Physician Radiation Oncology 04/28/20 Luly Gaffney RN Specialty Airport Utility Worker Oncology 05/18/20 Richard Jenkins, DO [address] [facility] [place] [address] Referring Hematology/Oncology 05/25/20 Ludin, Caroleen S [address] [place] [address] Cardiology 06/24/20 Sena Seymour LISW Sueding Machine Tender 10/06/20 Demand Planning Analyst Relationship Specialty Start Date End Date Yaw Singh MD [address] [place] [address] PCP - General Family Practice 08/27/20 Madan Roy MD, [address] [facility] [place] [place] [address] Physician Radiation Oncology 04/28/20 Luly Gaffney RN Specialty Airport Utility Worker Oncology 05/18/20 Richard Jenkins, DO [address] [place] [address] Referring Hematology/Oncology 05/25/20 Ludin, Caroleen S [address] [facility] [address] [place] [address] Cardiology 06/24/20 Sena Seymour LISW Sueding Machine Tender 10/06/20 Demand Planning Analyst Relationship Specialty Start Date End Date Yaw Singh MD [address] [facility] [place] [address] PCP - General Family Practice 08/27/20 Madan Roy MD, [address] [place] [address] Physician Radiation Oncology 04/28/20 Luly Gaffney RN Specialty Airport Utility Worker Oncology 05/18/20 Richard Jenkins, DO [address] [place] [address] Referring Hematology/Oncology 05/25/20 Ludin, Caroleen S [address] [facility] [address] [place] [address] Cardiology 06/24/20 Sena Seymour LISW Sueding Machine Tender 10/06/20 Demand Planning Analyst Relationship Specialty Start Date End Date Yaw Singh MD [address] [facility] [place] [address] PCP - General Family Practice 08/27/20 Madan Roy MD, [address] [place] [address] Physician Radiation Oncology 04/28/20 Luly Gaffney RN Specialty Airport Utility Worker Oncology 05/18/20 Richard Jenkins, DO [address] [place] [address] Referring Hematology/Oncology 05/25/20 Ludin, Caroleen S [address] [facility] [address] [place] [address] Cardiology 06/24/20 Sena Seymour LISW Sueding Machine Tender 10/06/20 Demand Planning Analyst Relationship Specialty Start Date End Date Yaw Singh MD [address] [facility] [place] [address] PCP - General Family Practice 08/27/20 Madan Roy MD, [address] [facility] [place] [address] Physician Radiation Oncology 04/28/20 Luly Gaffney RN Specialty Airport Utility Worker Oncology 05/18/20 Richard Jenkins, [address] [facility] [place] [address] Referring Hematology/Oncology 05/25/20 Ludin, Haroldo S [address]audia [facility] [address] [place] [address] Cardiology 06/24/20 Sena Seymour LISW Sueding Machine Tender 10/06/20 Demand Planning Analyst Relationship Specialty Start Date End Date Yaw Singh MD [address] [facility] [place] [address] PCP - General Family Practice 08/27/20 Madan Roy MD, [address] [facility] [place] [address] Physician Radiation Oncology 04/28/20 Luly Gaffney RN Specialty Airport Utility Worker Oncology 05/18/20 Richard Jenkins, [address] [facility] [place] [address] Referring Hematology/Oncology 05/25/20 Ludin, Caroleen S [address] [place] [address] Cardiology 06/24/20 Sena Seymour LISW Sueding Machine Tender 10/06/20 Demand Planning Analyst Relationship Specialty Start Date End Date Yaw Singh MD [address] [facility] [place] [address] PCP - General Family Practice 08/27/20 Madan Roy MD, [address] [facility] [place] [address] Physician Radiation Oncology 04/28/20 Luly Gaffney RN Specialty Airport Utility Worker Oncology 05/18/20 Richard Jenkins, [address] [place] [address] Referring Hematology/Oncology 05/25/20 Ludin, Haroldo S [address] [facility] [address] [place] [address] Cardiology 06/24/20 Sena Seymour LISW Sueding Machine Tender 10/06/20 Demand Planning Analyst Relationship Specialty Start Date End Date Yaw Singh MD [address] [facility] [place] [address] PCP - General Family Practice 08/27/20 Madan Roy MD, [address] [place] [address] Physician Radiation Oncology 04/28/20 Luly Gaffney RN Specialty Airport Utility Worker Oncology 05/18/20 Richard Jenkins, [address] [place] [address] Referring Hematology/Oncology 05/25/20 Ludin, Haroldo S [address] [facility] [address] [place] [address] Cardiology 06/24/20 Sena Seymour, MICHELE Sueding Machine Tender 10/06/20 Demand Planning Analyst Relationship Specialty Start Date End Date Yaw Singh MD [address] [facility] [place] [address] PCP - General Family Practice 08/27/20 Madan Roy MD, [address] [facility] [place] [address] Physician Radiation Oncology 04/28/20 Luly Gaffney RN Specialty Airport Utility Worker Oncology 05/18/20 Richard Jenkins, DO [address] [facility] [place] [address] Referring Hematology/Oncology 05/25/20 Ludin, Caroleen S [address] [place] [address] Cardiology 06/24/20 Sena Seymour RN Sueding Machine Tender 10/06/20 Demand Planning Analyst Relationship Specialty Start Date End Date Yaw Singh MD [address] [facility] [place] [address] PCP - General Family Practice 08/27/20 Madan Roy MD, [address] [facility] [place] [address] Physician Radiation Oncology 04/28/20 Luly Gaffney RN Specialty Airport Utility Worker Oncology 05/18/20 Richard Jenkins, DO [address] [facility] [place] [address] Referring Hematology/Oncology 05/25/20 Ludin, Haroldo S [address] [place] [address] Cardiology 06/24/20 Sena Seymour RN Sueding Machine Tender 10/06/20 Demand Planning Analyst Relationship Specialty Start Date End Date Yaw Singh MD [address] [facility] [place] [address] PCP - General Family Medicine 08/27/20 Madan Roy MD, [address] [facility] [place] [address] Physician Radiation Oncology 04/28/20 Luly Gaffney RN Specialty Airport Utility Worker Oncology 05/18/20 Richard Jenkins, DO [address] [facility] [place] [address] Referring Hematology/Oncology 05/25/20 Ludin, Caroleen S [address] [place] [address] Cardiology 06/24/20 Sena Seymour RN Sueding Machine Tender 10/06/20 Demand Planning Analyst Relationship Specialty Start Date End Date Yaw Singh MD [address] [facility] [place] [address] PCP - General Family Medicine 08/27/20 Madan Roy MD, [address] [facility] [place] [address] Physician Radiation Oncology 04/28/20 Luly Gaffney RN Specialty Airport Utility Worker Oncology 05/18/20 Richard Jenkins, DO [address] [facility] [place] [address] Referring Hematology/Oncology 05/25/20 Ludin, Haroldo S [address] [facility] [address] [place] [address] Cardiology 06/24/20 Sena Seymour RN Sueding Machine Tender 10/06/20 Demand Planning Analyst Relationship Specialty Start Date End Date Yaw Singh MD [address] [facility] [place] [address] PCP - General Family Medicine 08/27/20 Madan Roy MD, [address] [facility] [place] [address] Physician Radiation Oncology 04/28/20 Luly Gaffney, RN Specialty Airport Utility Worker Oncology 05/18/20 Richard Jenkins, DO [address] [facility] [place] [address] Referring Hematology/Oncology 05/25/20 Ludin, Haroldo S [address] [facility] [address] [place] [address] Cardiology 06/24/20 Sena Seymour, MICHELE Sueding Machine Tender 10/06/20 Demand Planning Analyst Relationship Specialty Start Date End Date Yaw Singh MD [address] [facility] [place] [address] PCP - General Family Medicine 08/27/20 Madan Roy MD, [address] [facility] [place] [address] Physician Radiation Oncology 04/28/20 Luly Gaffney RN Specialty Airport Utility Worker Oncology 05/18/20 Richard Jenkins, DO [address] [facility] [place] [address] Referring Hematology/Oncology 05/25/20 Ludin, Caroleen S [address] [place] [address] Cardiology 06/24/20 Sena Seymour RN Sueding Machine Tender 10/06/20 Demand Planning Analyst Relationship Specialty Start Date End Date Yaw Singh MD [address] [facility] [place] [address] PCP - General Family Medicine 08/27/20 Madan Roy MD, [address] [facility] [place] [address] Physician Radiation Oncology 04/28/20 Luly Gaffney RN Specialty Airport Utility Worker Oncology 05/18/20 Richard Jenkins, DO [address] [facility] [place] [address] Referring Hematology/Oncology 05/25/20 Ludin, Caroleen S [address] [facility] [address] [place] [address] Cardiology 06/24/20 Sena Seymour, RN Sueding Machine Tender 10/06/20 Demand Planning Analyst Relationship Specialty Start Date End Date Yaw Singh MD [address] [facility] [place] [address] PCP - General Family Medicine 08/27/20 Madan Roy MD, [address] [facility] [place] [address] Physician Radiation Oncology 04/28/20 Luly Gaffney RN Specialty Airport Utility Worker Oncology 05/18/20 Richard Jenkins, DO [address] [facility] [place] [address] Referring Hematology/Oncology 05/25/20 Ludin, Caroleen S [address] [place] [address] Cardiology 06/24/20 Sena Seymour RN Sueding Machine Tender 10/06/20 Demand Planning Analyst Relationship Specialty Start Date End Date Yaw Singh MD [address] [facility] [place] [address] PCP - General Family Medicine 08/27/20 Madan Roy MD, [address] [facility] [place] [address] Physician Radiation Oncology 04/28/20 Luly Gaffney RN Specialty Airport Utility Worker Oncology 05/18/20 Richard Jenkins, DO [address] [place] [place] [address] Referring Hematology/Oncology 05/25/20 Ludin, Caroleen S [address] [facility] [address] [place] [address] Cardiology 06/24/20 Sena Seymour, RN Sueding Machine Tender 10/06/20 Demand Planning Analyst Relationship Specialty Start Date End Date Yaw Singh MD [address] [facility] [place] [address] PCP - General Family Medicine 08/27/20 Madan Roy MD, [address] [facility] [place] [address] Physician Radiation Oncology 04/28/20 Luly Gaffney RN Specialty Airport Utility Worker Oncology 05/18/20 Richard Jenkins, DO [address] [facility] [place] [address] Referring Hematology/Oncology 05/25/20 Ludin, Caroleen S [address] [place] [address] Cardiology 06/24/20 Sena Seymour RN Sueding Machine Tender 10/06/20 Team Status: Active Member Role Status Dates Dr. Dane Hancock III, MD Family Provider Active Dr. Yaw Singh MD Primary Care Provider Active Team Status: Inactive Member Role Status Dates Dr. Yaw Singh MD Primary Care Provider, Referri Provider Active Angel Whitney NP, CONTRACTING MANAGER-C Attending Provider Active Team Status: Inactive Member Role Status Dates Dr. Yaw Singh MD Primary Care Provider Active Dr. Sue Roberts MD Emergency Provider Active Demand Planning Analyst Relationship Specialty Start Date End Date Yaw Singh MD [address] [facility] [place] [address] PCP - General Family Medicine 08/27/20 Madan Roy MD, [address] [facility] [place] [address] Physician Radiation Oncology 04/28/20 Luly Gaffney RN Specialty Airport Utility Worker Oncology 05/18/20 Richard Jenkins, DO [address] [facility] [place] [address] Referring Hematology/Oncology 05/25/20 Ludin, Caroleen S [address] [facility] [address] [place] [address] Cardiology 06/24/20 Sena Seymour RN Sueding Machine Tender 10/06/20 Demand Planning Analyst Relationship Specialty Start Date End Date Yaw Singh MD [address] [facility] [place] [address] PCP - General Family Medicine 08/27/20 Madan Roy MD, [address] [facility] [place] [address] Physician Radiation Oncology 04/28/20 Luly Gaffney RN Specialty Airport Utility Worker Oncology 05/18/20 Richard Jenkins, DO [address] [facility] [place] [address] Referring Hematology/Oncology 05/25/20 Ludin, Haroldo S [address] [place] [address] Cardiology 06/24/20 Sena Seymour RN Sueding Machine Tender 10/06/20 Team Status: Inactive Member Role Status Dates Dr. Yaw Singh MD Primary Care Provider Active Dr. Sue Roberts MD Attending Provider, Emergency Provider Active Team Status: Inactive Member Role Status Dates Dr. Yaw Singh MD Primary Care Provider Active Dr. Van Danielle MD Attending Provider, Referr ing Provider Active Demand Planning Analyst Relationship Specialty Start Date End Date Yaw Singh MD [address] [facility] [place] [address] PCP - General Family Medicine 08/27/20 Madan Roy MD, [address] [facility] [place] [address] Physician Radiation Oncology 04/28/20 Luly Gaffney RN Specialty Airport Utility Worker Oncology 05/18/20 Richard Jenkins, DO [address] [facility] [place] [place] [address] Referring Hematology/Oncology 05/25/20 Ludin, Hraoldo S [address] [place] [address] Cardiology 06/24/20 Sena Seymour RN Sueding Machine Tender 10/06/20 Demand Planning Analyst Relationship Specialty Start Date End Date Yaw Singh MD [address] [facility] [place] [address] PCP - General Family Medicine 08/27/20 Madan Roy MD, [address] [facility] [place] [address] Physician Radiation Oncology 04/28/20 Luly Gaffney RN Specialty Airport Utility Worker Oncology 05/18/20 Richard Jenkins, DO [address] [facility] [place] [place] [address] Referring Hematology/Oncology 05/25/20 Ludin, Haroldo S [address] [place] [address] Cardiology 06/24/20 Sena Seymour RN Sueding Machine Tender 10/06/20 Demand Planning Analyst Relationship Specialty Start Date End Date Yaw Singh MD [address] [place] [address] PCP - General Family Medicine 08/27/20 Madan Ryo MD, [address] [place] [address] Physician Radiation Oncology 04/28/20 Luly Gaffney RN Specialty Airport Utility Worker Oncology 05/18/20 Richard Jenkins, [address] [place] [address] Referring Hematology/Oncology 05/25/20 Ludin, Caroleen S [address] [address] Cardiology 06/24/20 Sena Seymour RN Sueding Machine Tender 10/06/20 Demand Planning Analyst Relationship Specialty Start Date End Date Yaw Singh MD [address] [place] [address] PCP - General Family Medicine 08/27/20 Madan Roy MD, [address] [place] [address] Physician Radiation Oncology 04/28/20 Luly Gaffney RN Specialty Airport Utility Worker Oncology 05/18/20 Richard Jenkins, [address] [place] [address] Referring Hematology/Oncology 05/25/20 Ludin, Caroleen S [address] [address] Cardiology 06/24/20 Sena Seymour RN Sueding Machine Tender 10/06/20 Team Status: Inactive Member Role Status Dates Dr. Yaw Singh MD Primary Care Provider Active Angel Whitney NP, CONTRACTING MANAGER-C Attending Provider, Referring Pro vider Active Demand Planning Analyst Relationship Specialty Start Date End Date Yaw Singh MD [address] [facility] [place] [address] PCP - General Family Medicine 08/27/20 Madan Roy MD, [address] [place] [address] Physician Radiation Oncology 04/28/20 Luly Gaffney RN Specialty Airport Utility Worker Oncology 05/18/20 Richard Jenkins DO [address] [place] [address] Referring Hematology/Oncology 05/25/20 Haroldo Noland [address] [place] [address] Cardiology 06/24/20 Sena Seymour, RN Sueding Machine Tender 10/06/20 Demand Planning Analyst Relationship Specialty Start Date End Date Yaw Singh MD [address] [facility] [place] [address] PCP - General Family Medicine 08/27/20 Madan Roy MD, [address] [place] [address] Physician Radiation Oncology 04/28/20 Luly Gaffney RN Specialty Airport Utility Worker Oncology 05/18/20 Richard Jenkins DO [address] [place] [address] Referring Hematology/Oncology 05/25/20 Haroldo Noland MD [address] [place] [address] Cardiology 06/24/20 Sena Seymour, RN Sueding Machine Tender 10/06/20 Demand Planning Analyst Relationship Specialty Start Date End Date Yaw Singh MD [address] [facility] [place] [address] PCP - General Family Medicine 08/27/20 Madan Roy MD, [address] [place] [address] Physician Radiation Oncology 04/28/20 Luly Gaffney RN Specialty Airport Utility Worker Oncology 05/18/20 Richard Jenkins DO [address] [place] [address] Referring Hematology/Oncology 05/25/20 Haroldo Noland MD [address] [place] [address], [place] [address] Cardiology 06/24/20 Sena Seymour RN Sueding Machine Tender 10/06/20 Demand Planning Analyst Relationship Specialty Start Date End Date Yaw Singh MD [address] [place] [address] PCP - General Family Medicine 08/27/20 Madan Roy MD, [address] [facility] [address] Physician Radiation Oncology 04/28/20 Luly Gaffney RN Specialty Airport Utility Worker Oncology 05/18/20 Richard Jenkins DO [address] [facility] [place] [address] Referring Hematology/Oncology 05/25/20 Haroldo Noland MD [address] [place] [address] Cardiology 06/24/20 Sena Seymour, RN Sueding Machine Tender 10/06/20 Demand Planning Analyst Relationship Specialty Start Date End Date Yaw Singh MD [address] [facility] [place] [address] PCP - General Family Medicine 08/27/20 Madan Roy MD, [address] [facility] [place] [address] Physician Radiation Oncology 04/28/20 Luly Gaffney RN Specialty Airport Utility Worker Oncology 05/18/20 Richard Jenkins DO [address] [place] [place] [address] Referring Hematology/Oncology 05/25/20 Haroldo Noland MD [address] [place] [address] Cardiology 06/24/20 Sena Seymour RN Sueding Machine Tender 10/06/20 Demand Planning Analyst Relationship Specialty Start Date End Date Yaw Singh MD [address] [facility] [place] [address] PCP - General Family Medicine 08/27/20 Madan oRy MD, [address] [place] [place] [address] Physician Radiation Oncology 04/28/20 Luly Gaffney RN Specialty Airport Utility Worker Oncology 05/18/20 Richard Jenkins DO [address] [place] [address] Referring Hematology/Oncology 05/25/20 Haroldo Noland MD [address] [place] [address] Cardiology 06/24/20 Sena Seymour RN Sueding Machine Tender 10/06/20 Demand Planning Analyst Relationship Specialty Start Date End Date Yaw Singh MD [address] [facility] [place] [address] PCP - General Family Medicine 08/27/20 Madan Roy MD, [address] [facility] [place] [address] Physician Radiation Oncology 04/28/20 Luly Gaffney RN Specialty Airport Utility Worker Oncology 05/18/20 Richard Jenkins DO [address] [facility] [place] [address] Referring Hematology/Oncology 05/25/20 Haroldo Noland MD [address] [place] [address] Cardiology 06/24/20 Sena Seymour RN Sueding Machine Tender 10/06/20 Demand Planning Analyst Relationship Specialty Start Date End Date Yaw Singh MD [address] [facility] [place] [address] PCP - General Family Medicine 08/27/20 Madan Roy MD, MD [address] [facility] [address] Physician Radiation Oncology 04/28/20 Luly Gaffney RN Specialty Airport Utility Worker Oncology 05/18/20 Richard Jenkins DO [address] [place] [address] Referring Hematology/Oncology 05/25/20 Haroldo Noland MD [address] [facility] [address] [place] [address] Cardiology 06/24/20 Sena Seymour, RN Sueding Machine Tender 10/06/20 Demand Planning Analyst Relationship Specialty Start Date End Date Yaw Singh MD [address] [facility] [place] [address] PCP - General Family Medicine 08/27/20 Madan Roy MD, MD [address] [place] [address] Physician Radiation Oncology 04/28/20 Luly Gaffney RN Specialty Airport Utility Worker Oncology 05/18/20 Richard Jenkins DO [address] [place] [address] Referring Hematology/Oncology 05/25/20 Haroldo Noland MD [address] [facility] [address] [place] [address] Cardiology 06/24/20 Sena Seymour, RN Sueding Machine Tender 10/06/20 Demand Planning Analyst Relationship Specialty Start Date End Date Yaw Singh MD [address] [facility] [place] [address] PCP - General Family Medicine 08/27/20 Madan Roy MD, MD [address] [place] [address] Physician Radiation Oncology 04/28/20 Luly Gaffney RN Specialty Airport Utility Worker Oncology 05/18/20 Richard Jenkins DO [address] [facility] [address] Referring Hematology/Oncology 05/25/20 Haroldo Noland MD [address] [place] [address] Cardiology 06/24/20 Sena Seymour RN Sueding Machine Tender 10/06/20 Demand Planning Analyst Relationship Specialty Start Date End Date Yaw Singh MD [address] [place] [address] PCP - General Family Medicine 08/27/20 Madan Roy MD, [address] [place] [address] Physician Radiation Oncology 04/28/20 Luly Gaffney RN Specialty Airport Utility Worker Oncology 05/18/20 Richard Jenkins DO [address] [facility] [place] [address] Referring Hematology/Oncology 05/25/20 Haroldo Noland MD [address] [address] Cardiology 06/24/20 Sena Seymour RN Sueding Machine Tender 10/06/20 Demand Planning Analyst Relationship Specialty Start Date End Date Yaw Singh MD [address] [place] [address] PCP - General Family Medicine 08/27/20 Madan Roy MD [address] [facility] [place] [address] Physician Radiation Oncology 04/28/20 Luly Gaffney RN Specialty Airport Utility Worker Oncology 05/18/20 Richard Jenkins DO [address] [place] [address] Referring Hematology/Oncology 05/25/20 Haroldo Noland MD [address] [facility] [address] [place] [address] Cardiology 06/24/20 Sena Seymour RN Sueding Machine Tender 10/06/20 Demand Planning Analyst Relationship Specialty Start Date End Date Yaw Singh MD [address] [place] [address] PCP - General Family Medicine 08/27/20 Madan Roy MD [address] [place] [address] Physician Radiation Oncology 04/28/20 Luly Gaffney RN Specialty Airport Utility Worker Oncology 05/18/20 Richard Jenkins DO [address] [place] [address] Referring Hematology/Oncology 05/25/20 Haroldo Noland MD [address] [facility] [address] [place] [address] Cardiology 06/24/20 Sena Seymour RN Sueding Machine Tender 10/06/20 Demand Planning Analyst Relationship Specialty Start Date End Date Yaw Singh MD [address] [facility] [place] [address] PCP - General Family Medicine 08/27/20 Madan Roy MD [address] [place] [address] Physician Radiation Oncology 04/28/20 Luly Gaffney RN Specialty Airport Utility Worker Oncology 05/18/20 Richard Jenkins DO [address] [facility] [place] [address] Referring Hematology/Oncology 05/25/20 Haroldo Noland MD [address] [place] [address], [place] [address] Cardiology 06/24/20 Sena Seymour RN Sueding Machine Tender 10/06/20 Demand Planning Analyst Relationship Specialty Start Date End Date Yaw Singh MD [address] [facility] [place] [address] PCP - General Family Medicine 08/27/20 Madan Roy MD [address] [place] [address] Physician Radiation Oncology 04/28/20 Luly Gaffney RN Specialty Airport Utility Worker Oncology 05/18/20 Richard Jenkins DO [address] [facility] [place] [address] Referring Hematology/Oncology 05/25/20 Haroldo Noland MD [address] [place] [address], [place] [address] Cardiology 06/24/20 Sena Seymour RN Sueding Machine Tender 10/06/20 Demand Planning Analyst Relationship Specialty Start Date End Date Yaw Singh MD [address] [facility] [place] [address] PCP - General Family Medicine 08/27/20 Madan Roy MD [address] [place] [address] Physician Radiation Oncology 04/28/20 Luly Gaffney RN Specialty Airport Utility Worker Oncology 05/18/20 Richard Jenkins DO [address] [place] [address] Referring Hematology/Oncology 05/25/20 Haroldo Noland MD [address] [place] [address] Cardiology 06/24/20 Sena Seymour RN Sueding Machine Tender 10/06/20 Demand Planning Analyst Relationship Specialty Start Date End Date Yaw Singh MD [address] [facility] [place] [address] PCP - General Family Medicine 08/27/20 Madan Roy MD [address] [place] [address] Physician Radiation Oncology 04/28/20 Luly Gaffney RN Specialty Airport Utility Worker Oncology 05/18/20 Richard Jenkins DO [address] [place] [address] Referring Hematology/Oncology 05/25/20 Haroldo Noland MD [address] [facility] [address] [place] [address] Cardiology 06/24/20 Sena Seymour RN Sueding Machine Tender 10/06/20 Demand Planning Analyst Relationship Specialty Start Date End Date Yaw Singh MD [address] [facility] [address] PCP - General Family Medicine 08/27/20 Madan Roy MD [address] [place] [address] Physician Radiation Oncology 04/28/20 Luly Gaffney RN Specialty Airport Utility Worker Oncology 05/18/20 Richard Jenkins DO [address] [place] [address] Referring Hematology/Oncology 05/25/20 Haroldo Noland MD [address] [place] [address], [place] [address] Cardiology 06/24/20 Sena Seymour RN Sueding Machine Tender 10/06/20 Demand Planning Analyst Relationship Specialty Start Date End Date Yaw Singh MD [address] [facility] [place] [address] PCP - General Family Medicine 08/27/20 Madan Roy MD [address] [place], [place] [address] Physician Radiation Oncology 04/28/20 Luly Gaffney RN Specialty Airport Utility Worker Oncology 05/18/20 Richard Jenkins DO [address] [place] [address] Referring Hematology/Oncology 05/25/20 Haroldo Noland MD [address] [place] [address] Cardiology 06/24/20 Sena Seymour, RN Sueding Machine Tender 10/06/20 Demand Planning Analyst Relationship Specialty Start Date End Date Yaw Singh MD [address] [facility] [place] [address] PCP - General Family Medicine 08/27/20 Madan Roy MD [address] [facility] [place] [address] Physician Radiation Oncology 04/28/20 Luly Gaffney RN Specialty Airport Utility Worker Oncology 05/18/20 Richard Jenkins DO [address] [facility] [place] [address] Referring Hematology/Oncology 05/25/20 Haroldo Noland MD [address] [place] [address] Cardiology 06/24/20 Sena Seymour RN Sueding Machine Tender 10/06/20 Demand Planning Analyst Relationship Specialty Start Date End Date Yaw Singh MD [address] [facility] [place] [address] PCP - General Family Medicine 08/27/20 Madan Roy MD [address] [facility] [place] [place] [address] Physician Radiation Oncology 04/28/20 Luly Gaffney RN Specialty Airport Utility Worker Oncology 05/18/20 Richard Jenkins DO [address] [facility] [place] [place] [address] Referring Hematology/Oncology 05/25/20 Haroldo Noland MD [address] [facility] [place] [address] Cardiology 06/24/20 Sena Seymour, RN Sueding Machine Tender 10/06/20 Demand Planning Analyst Relationship Specialty Start Date End Date Yaw Singh MD [address] [facility] [place] [address] PCP - General Family Medicine 08/27/20 Madan Roy MD [address] [place] [address] Physician Radiation Oncology 04/28/20 Luly Gaffney RN Specialty Airport Utility Worker Oncology 05/18/20 Richard Jenkins DO [address] [place] [place] [address] Referring Hematology/Oncology 05/25/20 Haroldo Noland MD [address] [facility] [address] [place] [address] Cardiology 06/24/20 Sena Seymour, RN Sueding Machine Tender 10/06/20 Demand Planning Analyst Relationship Specialty Start Date End Date Yaw Singh MD [address] [facility] [place] [address] PCP - General Family Medicine 08/27/20 Madan Roy MD [address] [place] [address] Physician Radiation Oncology 04/28/20 Luly Gaffney RN Specialty Airport Utility Worker Oncology 05/18/20 Richard Jenkins DO [address] [place] [address] Referring Hematology/Oncology 05/25/20 Haroldo Noland MD [address] [facility] [address] [place] [address] Cardiology 06/24/20 Sena Seymour, RN Sueding Machine Tender 10/06/20 Demand Planning Analyst Relationship Specialty Start Date End Date Yaw Singh MD [address] [facility] [place] [address] PCP - General Family Medicine 08/27/20 Madan Roy MD [address] [address] Physician Radiation Oncology 04/28/20 Luly Gaffney RN Specialty Airport Utility Worker Oncology 05/18/20 Richard Jenkins DO [address] [place] [place] [address] Referring Hematology/Oncology 05/25/20 Harlodo Noland MD [address] [facility] [place] [address] Cardiology 06/24/20 Sena Seymour RN Sueding Machine Tender 10/06/20 Demand Planning Analyst Relationship Specialty Start Date End Date Yaw Singh MD [address] [facility] [place] [address] PCP - General Family Medicine 08/27/20 Madan Roy MD [address] [place] [address] Physician Radiation Oncology 04/28/20 Luly Gaffney RN Specialty Airport Utility Worker Oncology 05/18/20 Richard Jenkins DO [address] [place] [address] Referring Hematology/Oncology 05/25/20 Haroldo Noland MD [address] [place] [address] Cardiology 06/24/20 Sena Seymour, RN Sueding Machine Tender 10/06/20 Demand Planning Analyst Relationship Specialty Start Date End Date Yaw Singh MD [address] [facility] [place] [address] PCP - General Family Medicine 08/27/20 Madan Roy MD [address] [place] [address] Physician Radiation Oncology 04/28/20 Luly Gaffney RN Specialty Airport Utility Worker Oncology 05/18/20 Richard Jenkins DO [address] [place] [address] Referring Hematology/Oncology 05/25/20 Haroldo Noland MD [address] [place] [address] Cardiology 06/24/20 Sena Seymour, RN Sueding Machine Tender 10/06/20 Demand Planning Analyst Relationship Specialty Start Date End Date Yaw Singh MD [address] [facility] [place] [address] PCP - General Family Medicine 08/27/20 Madan Roy MD [address] [place] [address] Physician Radiation Oncology 04/28/20 Luly Gaffney RN Specialty Airport Utility Worker Oncology 05/18/20 Richard Jenkins DO [address] [facility] [place] [address] Referring Hematology/Oncology 05/25/20 Haroldo Noland MD [address] [facility] [address] [address] Cardiology 06/24/20 Sena Seymour, RN Sueding Machine Tender 10/06/20 Demand Planning Analyst Relationship Specialty Start Date End Date Yaw Singh MD [address] [facility] [place] [address] PCP - General Family Medicine 08/27/20 Madan Roy MD [address] [place] [address] Physician Radiation Oncology 04/28/20 Luly Gaffney RN Specialty Airport Utility Worker Oncology 05/18/20 Richard Jenkins DO [address] [facility] [place] [address] Referring Hematology/Oncology 05/25/20 Haroldo Noland MD [address] [place] [address] Cardiology 06/24/20 Sena Seymour RN Sueding Machine Tender 10/06/20 Demand Planning Analyst Relationship Specialty Start Date End Date Yaw Singh MD [address] [place] [address] PCP - General Family Medicine 08/27/20 Madan Roy MD [address] [place] [address] Physician Radiation Oncology 04/28/20 Luly Gaffney RN Specialty Airport Utility Worker Oncology 05/18/20 Richard Jenkins DO [address] [place] [address] Referring Hematology/Oncology 05/25/20 Haroldo Noland MD [address] [facility] [address] [place] [address] Cardiology 06/24/20 Sena Seymour, RN Sueding Machine Tender 10/06/20 Demand Planning Analyst Relationship Specialty Start Date End Date Yaw Singh MD [address] [facility] [place] [address] PCP - General Family Medicine 08/27/20 Madan Roy MD [address] [place] [address] Physician Radiation Oncology 04/28/20 Luly Gaffney RN Specialty Airport Utility Worker Oncology 05/18/20 Richard Jenkins DO [address] [place] [address] Referring Hematology/Oncology 05/25/20 Haroldo Noland MD [address] [facility] [address] [place] [address] Cardiology 06/24/20 Sena Seymour RN Sueding Machine Tender 10/06/20 Demand Planning Analyst Relationship Specialty Start Date End Date Yaw Singh MD [address] [place] [address] PCP - General Family Medicine 08/27/20 Madan Roy MD [address] [place] [address] Physician Radiation Oncology 04/28/20 Luly Gaffney RN Specialty Airport Utility Worker Oncology 05/18/20 Richard Jenkins DO [address] [facility] [place] [address] Referring Hematology/Oncology 05/25/20 Haroldo Noland MD [address] [place] [address] Cardiology 06/24/20 Sena Seymour RN Sueding Machine Tender 10/06/20 Demand Planning Analyst Relationship Specialty Start Date End Date Yaw Singh MD [address] [facility] [place] [address] PCP - General Family Medicine 08/27/20 Madan Roy MD [address] [place] [address] Physician Radiation Oncology 04/28/20 Luly Gaffney RN Specialty Airport Utility Worker Oncology 05/18/20 Richard Jenkins DO [address] [place] [address] Referring Hematology/Oncology 05/25/20 Haroldo Noland MD [address] [place] [address], [place] [address] Cardiology 06/24/20 Sena Seymour RN Sueding Machine Tender 10/06/20 Demand Planning Analyst Relationship Specialty Start Date End Date Yaw Singh MD [address] [facility] [place] [address] PCP - General Family Medicine 08/27/20 Madan Roy MD [address] [place] [address] Physician Radiation Oncology 04/28/20 Luly Gaffney RN Specialty Airport Utility Worker Oncology 05/18/20 Richard Jenkins DO [address] [place] [address] Referring Hematology/Oncology 05/25/20 Haroldo Noland MD [address] [place] [address] Cardiology 06/24/20 Sena Seymour RN Sueding Machine Tender 10/06/20 Demand Planning Analyst Relationship Specialty Start Date End Date Yaw Singh MD [address] [facility] [place] [address] PCP - General Family Medicine 08/27/20 Madan Roy MD [address] [place] [address] Physician Radiation Oncology 04/28/20 Luly Gaffney RN Specialty Airport Utility Worker Oncology 05/18/20 Richard Jenkins DO [address] [place] [address] Referring Hematology/Oncology 05/25/20 Haroldo Noland MD [address] [place] [address] Cardiology 06/24/20 Sena Seymour RN Sueding Machine Tender 10/06/20 Demand Planning Analyst Relationship Specialty Start Date End Date Yaw Singh MD [address] [facility] [place] [address] PCP - General Family Medicine 08/27/20 Madan Roy MD [address] [place] [place] [address] Physician Radiation Oncology 04/28/20 Luly Gaffney RN Specialty Airport Utility Worker Oncology 05/18/20 Richard Jenkins DO [address] [place] [address] Referring Hematology/Oncology 05/25/20 Haroldo Noland MD [address] [place] [address], [place] [address] Cardiology 06/24/20 Sena Seymour RN Sueding Machine Tender 10/06/20 Demand Planning Analyst Relationship Specialty Start Date End Date Yaw Singh MD [address] [facility] [place] [address] PCP - General Family Medicine 08/27/20 Madan Roy MD [address] [place] [address] Physician Radiation Oncology 04/28/20 Luly Gaffney RN Specialty Airport Utility Worker Oncology 05/18/20 Richard Jenkins DO [address] [place] [address] Referring Hematology/Oncology 05/25/20 Haroldo Noland MD [address] [place] [address] Cardiology 06/24/20 Sena Seymour, MICHELE Sueding Machine Tender 10/06/20 Demand Planning Analyst Relationship Specialty Start Date End Date Yaw Singh MD [address] [facility] [place] [address] PCP - General Family Medicine 08/27/20 Madan Roy MD [address] [facility] [place] [address] Physician Radiation Oncology 04/28/20 Luly Gaffney RN Specialty Airport Utility Worker Oncology 05/18/20 Richard Jenkins DO [address] [facility] [place] [address] Referring Hematology/Oncology 05/25/20 Haroldo Noland MD [address] [facility] [place] [address] Cardiology 06/24/20 Sena Seymour RN Sueding Machine Tender 10/06/20 Demand Planning Analyst Relationship Specialty Start Date End Date Yaw Singh MD [address] [facility] [place] [address] PCP - General Family Medicine 08/27/20 Madan Roy MD [address] [facility] [place] [address] Physician Radiation Oncology 04/28/20 Luly Gaffney RN Specialty Airport Utility Worker Oncology 05/18/20 Richard Jenkins DO [address] [facility] [place] [address] Referring Hematology/Oncology 05/25/20 Haroldo Noland MD [address] [facility] [address] [place] [address] Cardiology 06/24/20 Sena Seymour, RN Sueding Machine Tender 10/06/20 Demand Planning Analyst Relationship Specialty Start Date End Date Yaw Singh MD [address] [facility] [place] [address] PCP - General Family Medicine 08/27/20 Madan Roy MD [address] [place] [address] Physician Radiation Oncology 04/28/20 Luly Gaffney RN Specialty Airport Utility Worker Oncology 05/18/20 Richard Jenkins DO [address] [place] [address] Referring Hematology/Oncology 05/25/20 Haroldo Noland MD [address] [place] [address] Cardiology 06/24/20 Sena Seymour RN Sueding Machine Tender 10/06/20 Demand Planning Analyst Relationship Specialty Start Date End Date Yaw Singh MD [address] [facility] [place] [address] PCP - General Family Medicine 08/27/20 Madan Roy MD [address] [place] [address] Physician Radiation Oncology 04/28/20 Luly Gaffney RN Specialty Airport Utility Worker Oncology 05/18/20 Richard Jenkins DO [address] [place] [address] Referring Hematology/Oncology 05/25/20 Haroldo Noland MD [address] [facility] [address] [place] [address] Cardiology 06/24/20 Sena Seymour RN Sueding Machine Tender 10/06/20 Demand Planning Analyst Relationship Specialty Start Date End Date Yaw Singh MD [address] [facility] [place] [address] PCP - General Family Medicine 08/27/20 Madan Roy MD [address] [place] [address] Physician Radiation Oncology 04/28/20 Luly Gaffney RN Specialty Airport Utility Worker Oncology 05/18/20 Richard Jenkins DO [address] [place] [address] Referring Hematology/Oncology 05/25/20 Haroldo Noland MD [address] [facility] [address] [place] [address] Cardiology 06/24/20 Sena Seymour RN Sueding Machine Tender 10/06/20 Demand Planning Analyst Relationship Specialty Start Date End Date aYw Singh MD [address] [facility] [place] [address] PCP - General Family Medicine 08/27/20 Madan Roy MD [address] [place] [address] Physician Radiation Oncology 04/28/20 Luly Gaffney RN Specialty Airport Utility Worker Oncology 05/18/20 Richard Jenkins DO [address] [place] [address] Referring Hematology/Oncology 05/25/20 Haroldo Noland MD [address] [place] [address] Cardiology 06/24/20 Sena Seymour, RN Sueding Machine Tender 10/06/20 Demand Planning Analyst Relationship Specialty Start Date End Date Yaw Singh MD [address] [facility] [place] [address] PCP - General Family Medicine 08/27/20 Madan Roy MD [address] [place] [address] Physician Radiation Oncology 04/28/20 Luly Gaffney RN Specialty Airport Utility Worker Oncology 05/18/20 Richard Jenkins DO [address] [place] [address] Referring Hematology/Oncology 05/25/20 Haroldo Noland MD [address] [place] [address] Cardiology 06/24/20 Sena Seymour, RN Sueding Machine Tender 10/06/20 Demand Planning Analyst Relationship Specialty Start Date End Date Yaw Singh MD [address] [place] [address] PCP - General Family Medicine 08/27/20 Madan Roy MD [address] [place] [address] Physician Radiation Oncology 04/28/20 Luly Gaffney RN Specialty Airport Utility Worker Oncology 05/18/20 Richard Jenkins DO [address] [place] [address] Referring Hematology/Oncology 05/25/20 Haroldo Noland MD [address] [place] [address] Cardiology 06/24/20 Sena Seymour, RN Sueding Machine Tender 10/06/20 Demand Planning Analyst Relationship Specialty Start Date End Date Yaw Singh MD [address] [facility] [place] [address] PCP - General Family Medicine 08/27/20 Madan Roy MD [address] [place] [address] Physician Radiation Oncology 04/28/20 Luly Gaffney RN Specialty Airport Utility Worker Oncology 05/18/20 Richard Jenkins DO [address] [place] [address] Referring Hematology/Oncology 05/25/20 Haroldo Noland MD [address] [place] [address] Cardiology 06/24/20 Sena Seymour, RN Sueding Machine Tender 10/06/20 Bud Beck DO [address] [place] [address] Gastroenterology 01/15/24 Demand Planning Analyst Relationship Specialty Start Date End Date Yaw Singh MD [address] [facility] [place] [address] PCP - General Family Medicine 08/27/20 Madan Roy MD [address] [place] [address] Physician Radiation Oncology 04/28/20 Luly Gaffney RN Specialty Airport Utility Worker Oncology 05/18/20 Richard Jenkins DO [address] [place] [address] Referring Hematology/Oncology 05/25/20 Haroldo Noland MD [address] [place] [address] Cardiology 06/24/20 Sena Seymour, MICHELE Sueding Machine Tender 10/06/20 Bud Beck DO [address] [facility] [address] [place] [address] Gastroenterology 01/15/24 Demand Planning Analyst Relationship Specialty Start Date End Date Yaw Singh MD [address] [facility] [place] [address] PCP - General Family Medicine 08/27/20 Madan Roy MD [address] [place] [address] Physician Radiation Oncology 04/28/20 Luly Gaffney RN Specialty Airport Utility Worker Oncology 05/18/20 Richard Jenkins DO [address] [place] [address] Referring Hematology/Oncology 05/25/20 Haroldo Noland MD [address] [facility] [address] [place] [address] Cardiology 06/24/20 Sena Seymour, RN Sueding Machine Tender 10/06/20 Bud Beck DO [address] [facility] [address] [place] [address] Gastroenterology 01/15/24 Demand Planning Analyst Relationship Specialty Start Date End Date Yaw Singh MD [address] [place] [address] PCP - General Family Medicine 08/27/20 Madan Roy MD [address] [facility] [place] [address] Physician Radiation Oncology 04/28/20 Luly Gaffney RN Specialty Airport Utility Worker Oncology 05/18/20 Richard Jenkins DO [address] [facility] [place] [address] Referring Hematology/Oncology 05/25/20 Haroldo Noland MD [address] [place] [address] Cardiology 06/24/20 Sena Seymour, RN Sueding Machine Tender 10/06/20 Bud Beck DO [address] [facility] [address] [place], [place] [address] Gastroenterology 01/15/24 Demand Planning Analyst Relationship Specialty Start Date End Date Yaw Singh MD [address] [place] [address] PCP - General Family Medicine 08/27/20 Madan Roy MD [address] [place] [address] Physician Radiation Oncology 04/28/20 Luly Gaffney RN Specialty Airport Utility Worker Oncology 05/18/20 Richard Jenkins DO [address] [place] [address] Referring Hematology/Oncology 05/25/20 Haroldo Noland MD [address] [place] [address] Cardiology 06/24/20 Sena Seymour, MICHELE Sueding Machine Tender 10/06/20 Bud Beck DO [address] [place] [address] Gastroenterology 01/15/24 Demand Planning Analyst Relationship Specialty Start Date End Date Yaw Singh MD [address] [facility] [place] [address] PCP - General Family Medicine 08/27/20 Madan Roy MD [address] [place] [address] Physician Radiation Oncology 04/28/20 Luly Gaffney RN Specialty Airport Utility Worker Oncology 05/18/20 Richard Jenkins DO [address] [place] [address] Referring Hematology/Oncology 05/25/20 Haroldo Noland MD [address] [place] [address] Cardiology 06/24/20 Sena Seymour, RN Sueding Machine Tender 10/06/20 Bud Beck DO [address] [facility] [address] [place] [address] Gastroenterology 01/15/24 JimyflStar dicksona 01/29/24 Demand Planning Analyst Relationship Specialty Start Date End Date Yaw Singh MD [address] [facility] [place] [address] PCP - General Family Medicine 08/27/20 Madan Roy MD [address] [facility] [place] [address] Physician Radiation Oncology 04/28/20 Luly Gaffney RN Specialty Airport Utility Worker Oncology 05/18/20 Richard Jenkins DO [address] [facility] [place] [address] Referring Hematology/Oncology 05/25/20 Haroldo Noland MD [address] [facility] [address] [place] [address] Cardiology 06/24/20 Sena Seymour, MICHELE Sueding Machine Tender 10/06/20 Bud Beck DO [address] [facility] [address] [place], [place] [address] Gastroenterology 01/15/24 JimyflHelen dickson 01/29/24 Demand Planning Analyst Relationship Specialty Start Date End Date Yaw Singh MD [address] [facility] [place] [address] PCP - General Family Medicine 08/27/20 Madan Roy MD [address] [place] [address] Physician Radiation Oncology 04/28/20 Luly Gaffney RN Specialty Airport Utility Worker Oncology 05/18/20 Richard Jenkins DO [address] [place] [address] Referring Hematology/Oncology 05/25/20 Haroldo Noland MD [address] [place] [address] Cardiology 06/24/20 Sena Seymour, MICHELE Sueding Machine Tender 10/06/20 Bud Beck DO [address] [place] [address] Gastroenterology 01/15/24 Paige Helen 01/29/24 Demand Planning Analyst Relationship Specialty Start Date End Date Yaw Singh MD [address] [place] [address] PCP - General Family Medicine 08/27/20 Madan Roy MD [address] [place] [address] Physician Radiation Oncology 04/28/20 Luly Gaffney RN Specialty Airport Utility Worker Oncology 05/18/20 Richard Jenkins DO [address] [place] [address] Referring Hematology/Oncology 05/25/20 Haroldo Noland MD [address] [place] [address] Cardiology 06/24/20 Sena Seymour, MICHELE Sueding Machine Tender 10/06/20 Bud Beck DO [address] [facility] [address] [place] [address] Gastroenterology 01/15/24 Paige, Helen 01/29/24 Demand Planning Analyst Relationship Specialty Start Date End Date Yaw Singh MD [address] [facility] [place] [address] PCP - General Family Medicine 08/27/20 Madan Roy MD [address] [facility] [place] [address] Physician Radiation Oncology 04/28/20 Luly Gaffney RN Specialty Airport Utility Worker Oncology 05/18/20 Richard Jenkins DO [address] [facility] [place] [address] Referring Hematology/Oncology 05/25/20 Haroldo Noland MD [address] [facility] [address] [place] [address] Cardiology 06/24/20 Sena Seymour, MICHELE Sueding Machine Tender 10/06/20 Bud Beck DO [address] [facility] [address] [place], [place] [address] Gastroenterology 01/15/24 Jamia, Helen 01/29/24 Maegan Lange, MICHELE [address] [id number] Primary Care Residential Support Specialist 02/18/24 Demand Planning Analyst Relationship Specialty Start Date End Date Yaw Singh MD [address] [facility] [place] [address] PCP - General Family Medicine 08/27/20 Madan Roy MD [address] [place] [address] Physician Radiation Oncology 04/28/20 Luly Gfafney RN Specialty Airport Utility Worker Oncology 05/18/20 Richard Jenkins DO [address] [place], [place] [address]37[address] Referring Hematology/Oncology 05/25/20 Haroldo Noland MD [address] [facility] [address] [place], [place] [address] Cardiology 06/24/20 Sena Seymour, MICHELE Sueding Machine Tender 10/06/20 Bud Beck DO [address] [facility] [address] [place], [place] [address] Gastroenterology 01/15/24 Helen Gibson 01/29/24 Maegan Lange, MICHELE [address] [id number] Primary Care Residential Support Specialist 02/18/24 03/11/24 Demand Planning Analyst Relationship Specialty Start Date End Date Yaw Singh MD [address] [place], [place] [address]041 PCP - General Family Medicine 08/27/20 Madan Roy MD [address] [place], [place] [address] Physician Radiation Oncology 04/28/20 Luly Gaffney RN Specialty Airport Utility Worker Oncology 05/18/20 Richard Jenkins DO [address] [facility], [place] [address] Referring Hematology/Oncology 05/25/20 Haroldo Noland MD [address] [facility] [address] [place], [place] 410381 Cardiology 06/24/20 Sena Seymour, MICHELE Sueding Machine Tender 10/06/20 Bud Beck DO [address] [facility] [address] [place], [place] [address] Gastroenterology 01/15/24 Helen Gibson 01/29/24 Danielle Kelly APRN.[facility] [address] [place], [place] [address] [facility] 03/15/24 Usha Mcgovern PA-C [address] [facility], [place] [address] [facility] 03/15/24 Demand Planning Analyst Relationship Specialty Start Date End Date Yaw Singh MD [address] [place] [address] PCP - General Family Medicine 08/27/20 Madan Roy MD [address] [place] [address] Physician Radiation Oncology 04/28/20 Luly Gaffney RN Specialty Airport Utility Worker Oncology 05/18/20 Richard Jenkins DO [address] [place], [place] [address] Referring Hematology/Oncology 05/25/20 Haroldo Noland MD [address] [facility] [address] [place], [place] [address] Cardiology 06/24/20 Sena Seymour, RN Sueding Machine Tender 10/06/20 Bud Beck DO [address] [facility] [address] [place], [place] [id number] Gastroenterology 01/15/24 Paige Helen 01/29/24 Danielle Kelly APRN.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 [address] [place], [place] [id number] [facility] 03/15/24 Usha Mcgovern PA-C [address] [place], [place] [id number] [facility] 03/15/24 Demand Planning Analyst Relationship Specialty Start Date End Date Yaw Singh MD [address] [place], [place] [id number] PCP - General Family Medicine 08/27/20 Madan Roy MD [address] [place], [place] [id number] Physician Radiation Oncology 04/28/20 Luly Gaffney RN Specialty Airport Utility Worker Oncology 05/18/20 Richard Jenkins DO [address] [facility] [place], [place] [phone] Referring Hematology/Oncology 05/25/20 Haroldo Noland MD [address] [facility] [address] [place], [place] [id number] Cardiology 06/24/20 Sena Seymour, RN Sueding Machine Tender 10/06/20 Bud Beck DO [address] [id number] Gastroenterology 01/15/24 Star Gibsona 01/29/24 Danielle Kelly APRN.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 [address] [place], [place] [phone] [facility] 03/15/24 Usha Mcgovern PA-C [address] [place], [place] [id number] [facility] 03/15/24 Demand Planning Analyst Relationship Specialty Start Date End Date Yaw Singh MD [address] [place], [place] [id number] PCP - General Family Medicine 08/27/20 Madan Roy MD [address] [facility] [place], [place] [phone] Physician Radiation Oncology 04/28/20 Luly Gaffney RN Specialty Airport Utility Worker Oncology 05/18/20 Richard Jenkins DO [address] [facility] [place], [place] [phone] Referring Hematology/Oncology 05/25/20 Haroldo Noland MD [address] [facility] [address] [place], [place] [id number] Cardiology 06/24/20 Sena Seymour RN Sueding Machine Tender 10/06/20 Bud Beck DO [address] [facility] [address] [place], [place] [id number] Gastroenterology 01/15/24 Turkbijana, Helen 01/29/24 Danielle Kelly APRN.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 [address] [place], [place] 133371 [facility] 03/15/24 Usha Mcgovern PA-C [address] [place], [place] [phone] [facility] 03/15/24 Demand Planning Analyst Relationship Specialty Start Date End Date Yaw Singh MD [address] [place], [place] [id number] PCP - General Family Medicine 08/27/20 Madan Roy MD [address] [place] [address] Physician Radiation Oncology 04/28/20 Luly Gaffney RN Specialty Airport Utility Worker Oncology 05/18/20 Richard Jenkins DO [address] [place], [place] [phone] Referring Hematology/Oncology 05/25/20 Haroldo Noland MD [address] [address] Cardiology 06/24/20 Sena Seymour, MICHELE Sueding Machine Tender 10/06/20 Bud Beck DO [address] [phone] Gastroenterology 01/15/24 Turkbijana, Helen 01/29/24 Danielle Kelly APRN.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 [address] [place] [address] [facility] 03/15/24 Usha Mcgovern PA-C [address] [place], [place] 803601 [facility] 03/15/24 Demand Planning Analyst Relationship Specialty Start Date End Date Yaw Singh MD [address] [place], [place] 794671 PCP - General Family Medicine 08/27/20 Madan Roy MD [address] [place], [place] 929271 Physician Radiation Oncology 04/28/20 Luly Gaffney RN Specialty Airport Utility Worker Oncology 05/18/20 Richard Jenkins DO [address] [place], [place] [phone] Referring Hematology/Oncology 05/25/20 Haroldo Noland MD [address] [facility] [address] [place] [address] Cardiology 06/24/20 Sena Seymour, MICHELE Sueding Machine Tender 10/06/20 Bud Beck DO [address] [facility] [address] [place], [place] 927501 Gastroenterology 01/15/24 Helen Gibson 01/29/24 Danielle Kelly APRN.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 [address] [place], [place] [phone] [facility] 03/15/24 Usha Mcgovern PA-C [address] [facility] [place] [address] [facility] 03/15/24 Demand Planning Analyst Relationship Specialty Start Date End Date Yaw Singh MD [address]40 [facility] [place] [address] PCP - General Family Medicine 08/27/20 Madan Roy MD [address] [facility] [place] [address] Physician Radiation Oncology 04/28/20 Luly Gaffney RN Specialty Airport Utility Worker Oncology 05/18/20 Richard Jenkins DO [address] [facility] [place] [address] Referring Hematology/Oncology 05/25/20 Haroldo Noland MD [address] [place] [address] Cardiology 06/24/20 Sena Seymour, RN Sueding Machine Tender 10/06/20 Bud Beck DO [address] [place] [address] Gastroenterology 01/15/24 Helen Gibson 01/29/24 Danielle Kelly, ADALGISA.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 [address] [facility], [place] 991261 [facility] 03/15/24 Usha Mcgovern PA-C [address] [facility] [place] [address] [facility] 03/15/24 Demand Planning Analyst Relationship Specialty Start Date End Date Yaw Singh MD [address] [place] [address] PCP - General Family Medicine 08/27/20 Madan Roy MD [address] [place] [address] Physician Radiation Oncology 04/28/20 Luly Gaffney RN Specialty Airport Utility Worker Oncology 05/18/20 Richrad Jenkins DO [address] [place], [place] 398531 Referring Hematology/Oncology 05/25/20 Haroldo Noland MD [address] [place], [place] 304641 Cardiology 06/24/20 Sena Seymour, RN Sueding Machine Tender 10/06/20 Bud Beck DO [address] [facility] [address] [place], [place] 093121 Gastroenterology 01/15/24 Helen Gibson 01/29/24 Danielle Kelly APRN.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 [address] [place], [place] 500481 [facility] 03/15/24 Usha Mcgovern PA-C [address] [place], [place] [phone] [facility] 03/15/24 Helen Blair MD [address] [address] Pulmonary and Critical Care Medicine 05/08/24 Demand Planning Analyst Relationship Specialty Start Date End Date Yaw Singh MD [address] [place], [place] 595321 PCP - General Family Medicine 08/27/20 Madan Roy MD [address] [place] [address] Physician Radiation Oncology 04/28/20 Luly Gaffney RN Specialty Airport Utility Worker Oncology 05/18/20 Richard Jenkins DO [address] [place], [place] [phone] Referring Hematology/Oncology 05/25/20 Haroldo Noland MD [address] [facility] [address] [place], [place] 941461 Cardiology 06/24/20 Sena Seymour, MICHELE Sueding Machine Tender 10/06/20 Bud Beck DO [address] [facility] [address] [place], [place] 740921 Gastroenterology 01/15/24 Helen Gibson 01/29/24 Danielle Kelyl APRN.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 [address] [place], [place] 785081 [facility] 03/15/24 Usha Mcgovern PA-C [address] [place], [place] [phone] [facility] 03/15/24 Helen Blair MD [address] [address] Pulmonary and Critical Care Medicine 05/08/24 Demand Planning Analyst Relationship Specialty Start Date End Date Yaw Singh MD [address] [place] [address] PCP - General Family Medicine 08/27/20 Madan Roy MD [address] [place] [address] Physician Radiation Oncology 04/28/20 Luly Gaffney RN Specialty Airport Utility Worker Oncology 05/18/20 Richard Jenkins DO [address] [place] [address] Referring Hematology/Oncology 05/25/20 Haroldo Noland MD [address] [facility] [address] [place] [address] Cardiology 06/24/20 Sena Seymour, MICHELE Sueding Machine Tender 10/06/20 Bud Beck DO [address] [facility] [address] [place], [place] 311161 Gastroenterology 01/15/24 Helen Gibson 01/29/24 Danielle Kelly APRN.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 [address] [place] [address] [facility] 03/15/24 Usha Mcgovern PA-C [address] [place] [address] [facility] 03/15/24 Helen Blair MD [address] [place] [address] Pulmonary and Critical Care Medicine 05/08/24 Demand Planning Analyst Relationship Specialty Start Date End Date Yaw Singh MD [address] [place], [place] 723821 PCP - General Family Medicine 08/27/20 Madan Roy MD [address] [place], [place] 625071 Physician Radiation Oncology 04/28/20 Luly Gaffney RN Specialty Airport Utility Worker Oncology 05/18/20 Richard Jenkins DO [address] [place], [place] [phone] Referring Hematology/Oncology 05/25/20 Haroldo Noland MD [address] [facility] [address] [place], [place] 667241 Cardiology 06/24/20 Sena Seymour, MICHELE Sueding Machine Tender 10/06/20 Bud Beck DO [address] [facility] [address] [place], [place] 983291 Gastroenterology 01/15/24 Helen Gibson 01/29/24 Danielle Kelly APRN.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 [address] [place], [place] [phone] [facility] 03/15/24 Usha Mcgovern PA-C [address] [place], [place] 22326691 [facility] 03/15/24 Helen Blair MD [address] [place] [address] [phone] Pulmonary and Critical Care Medicine 05/08/24 Demand Planning Analyst Relationship Specialty Start Date End Date Yaw Singh MD [address] [place], [place] 777341 PCP - General Family Medicine 08/27/20 Madan Roy MD [address] [place], [place] 13235691 Physician Radiation Oncology 04/28/20 Luly Gaffney RN Specialty Airport Utility Worker Oncology 05/18/20 Richard Jenkins DO [address] [place], [place] [phone] Referring Hematology/Oncology 05/25/20 Haroldo Noland MD [address] [facility] [address] [place] [address] Cardiology 06/24/20 Sena Seymour, MICHELE Sueding Machine Tender 10/06/20 Bud Beck DO [address] [facility] [address] [place], [place] 735841 Gastroenterology 01/15/24 Helen Gibson 01/29/24 Danielle Kelly APRN.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 [address] [place], [place] [phone] [facility] 03/15/24 Usha Mcgovern PA-C [address] [place], [place] [phone] [facility] 03/15/24 Helen Blair MD [address] [place] [address] [phone] Pulmonary and Critical Care Medicine 05/08/24 Demand Planning Analyst Relationship Specialty Start Date End Date Yaw Singh MD [address] [place], [place] [id number] PCP - General Family Medicine 08/27/20 Madan Roy MD [address] [place], [place] 96904691 Physician Radiation Oncology 04/28/20 Luly Gaffney RN Specialty Airport Utility Worker Oncology 05/18/20 Richard Jenkins DO [address] [place], [place] [phone] Referring Hematology/Oncology 05/25/20 Haroldo Noland MD [address] [facility] [address] [place], [place] 334161 Cardiology 06/24/20 Sena Seymour, MICHELE Sueding Machine Tender 10/06/20 Bud Beck DO [address] [facility] [address] [place], [place] [id number] Gastroenterology 01/15/24 Helen Gibson 01/29/24 Danielle Kelly, ADALGISA.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 [address] [place], [place] [phone] [facility] 03/15/24 Usha Mcgovern PA-C [address] [place], [place] [id number] [facility] 03/15/24 Helen Blair MD [address] [place] [address] [phone] Pulmonary and Critical Care Medicine 05/08/24 Demand Planning Analyst Relationship Specialty Start Date End Date Yaw Singh MD [address] [place], [place] [id number] PCP - General Family Medicine 08/27/20 Madan Roy MD [address] [place], [place] 55217691 Physician Radiation Oncology 04/28/20 Luly Gaffney RN Specialty Airport Utility Worker Oncology 05/18/20 Richard Jenkins DO [address] [place], [place] [phone] Referring Hematology/Oncology 05/25/20 Haroldo Noland MD 1761 [facility] [address] [place] [address] Cardiology 06/24/20 Sena Seymour, MICHELE Sueding Machine Tender 10/06/20 Bud Beck DO [address]61 [facility] [address] [place] [address] Gastroenterology 01/15/24 Helen Gibson 01/29/24 Danielle Kelly, ADALGISA.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 [address] [place], [place] [phone] [facility] 03/15/24 Usha Mcgovern PA-C [address] [place], [place] [phone] [facility] 03/15/24 Helen Blair MD [address] [place] [address] [phone] Pulmonary and Critical Care Medicine 05/08/24 Demand Planning Analyst Relationship Specialty Start Date End Date Yaw Singh MD [address] [place], [place] [id number] PCP - General Family Medicine 08/27/20 Madan Roy MD [address] [place], [place] 74698691 Physician Radiation Oncology 04/28/20 Luly Gaffney RN Specialty Airport Utility Worker Oncology 05/18/20 Richard Jenkins DO [address] [place], [place] [phone] Referring Hematology/Oncology 05/25/20 Haroldo Noland MD [address]61 [facility] [address] [place] [address] Cardiology 06/24/20 eSna Seymour, RN Sueding Machine Tender 10/06/20 Bud Beck DO [address] [facility] [address] [place] [address] Gastroenterology 01/15/24 Helen Gibson 01/29/24 Danielle Kelly, RAILROAD CONDUCTOR.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 [address] [place], [place] [phone] [facility] 03/15/24 Usha Mcgovern PA-C [address] [place], [place] [phone] [facility] 03/15/24 Helen Blair MD [address] [place] [address] [phone] Pulmonary and Critical Care Medicine 05/08/24 Demand Planning Analyst Relationship Specialty Start Date End Date Yaw Singh MD [address] [place], [place] [id number] PCP - General Family Medicine 08/27/20 Madan Roy MD [address] [place], [place] 34501691 Physician Radiation Oncology 04/28/20 Luly Gaffney, MICHELE Specialty Airport Utility Worker Oncology 05/18/20 Richard Jenkins DO [address] [place], [place] [phone] Referring Hematology/Oncology 05/25/20 Haroldo Noland MD [address] [facility] [address] [place] [address] Cardiology 06/24/20 Sena Seymour, MICHELE Sueding Machine Tender 10/06/20 Bud Beck DO [address]61 [facility] [address] [place], [place] [address]691 Gastroenterology 01/15/24 Helen Gibson 01/29/24 Danielle Kelly APRN.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 [address] [place], [place] [phone] [facility] 03/15/24 Usha Mcgovern PA-C [address] [place], [place] 51069691 [facility] 03/15/24 Helen Blair MD [address] [phone] Pulmonary and Critical Care Medicine 05/08/24 Demand Planning Analyst Relationship Specialty Start Date End Date Yaw Singh MD [address] [place], [place] 391401 PCP - General Family Medicine 08/27/20 Madan Roy MD [address] [place], [place] [phone] Physician Radiation Oncology 04/28/20 Luly Gaffney RN Specialty Airport Utility Worker Oncology 05/18/20 Richard Jenkins DO [address] [place], [place] [phone] Referring Hematology/Oncology 05/25/20 Haroldo Noland MD [address]61 [facility] [address] [place] [address] Cardiology 06/24/20 Sena Seymour, RN Sueding Machine Tender 10/06/20 Bud Beck DO [address]61 [facility] [address] [place], [place] 787431 Gastroenterology 01/15/24 Helen Gibson 01/29/24 Danielle Kelly APRN.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 [address] [place], [place] [phone] [facility] 03/15/24 Usha Mcgovern PA-C [address] [place], [place] [phone] [facility] 03/15/24 Helen Blair MD [address] [phone] Pulmonary and Critical Care Medicine 05/08/24 Demand Planning Analyst Relationship Specialty Start Date End Date Yaw Singh MD [address] [place], [place] 123961 PCP - General Family Medicine 08/27/20 Madan Roy MD [address] [place], [place] 11229691 Physician Radiation Oncology 04/28/20 Luly Gaffney, MICHELE Specialty Airport Utility Worker Oncology 05/18/20 Richard Jenkins DO [address] [place], [place] [phone] Referring Hematology/Oncology 05/25/20 Haroldo Noland MD 1761 [facility] [address] [place] [address] Cardiology 06/24/20 Sena Seymour, MICHELE Sueding Machine Tender 10/06/20 Bud Beck DO [address]61 [facility] [address] [place], [place] 660651 Gastroenterology 01/15/24 Helen Gibson 01/29/24 Danielle Kelly APRN.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 [address] [place], [place] [phone] [facility] 03/15/24 Usha Mcgovern PA-C [address] [place], [place] [phone] [facility] 03/15/24 Helen Blair MD [address] [phone] Pulmonary and Critical Care Medicine 05/08/24 Demand Planning Analyst Relationship Specialty Start Date End Date Yaw Singh MD [address] [place] [address] PCP - General Family Medicine 08/27/20 Madan Roy MD [address] [place] [address] Physician Radiation Oncology 04/28/20 Luly Gaffney RN Specialty Airport Utility Worker Oncology 05/18/20 Richard Jenkins DO [address] [place], [place] [phone] Referring Hematology/Oncology 05/25/20 Haroldo Noland MD [address] [facility] [address] [place] [address] Cardiology 06/24/20 Sena Seymour, RN Sueding Machine Tender 10/06/20 Bud Beck DO [address] [facility] [address] [place] [address] Gastroenterology 01/15/24 Helen Gibson 01/29/24 Danielle Kelly APRN.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 [address] [place], [place] [id number] [facility] 03/15/24 Usha Mcgovern PA-C [address] [place] [address] [facility] 03/15/24 Helen Blair MD [address] [address] Pulmonary and Critical Care Medicine 05/08/24 Demand Planning Analyst Relationship Specialty Start Date End Date Yaw Singh MD [address] [place] [address] PCP - General Family Medicine 08/27/20 Madan Roy MD [address] [place] [address] Physician Radiation Oncology 04/28/20 Luly Gaffney RN Specialty Airport Utility Worker Oncology 05/18/20 Richard Jenkins DO [address] [place] [address] Referring Hematology/Oncology 05/25/20 Haroldo Noland MD [address] [facility] [address] [place] [address] Cardiology 06/24/20 Sena Seymour, RN Sueding Machine Tender 10/06/20 Bud Beck DO [address] [facility] [address] [place] [address] Gastroenterology 01/15/24 Heeln Gibson 01/29/24 Danielle Kelly APRN.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 [address] [place] [address] [facility] 03/15/24 Usha Mcgovern PA-C [address] [place] [address] [facility] 03/15/24 Helen [place] MD [address] [place] [address] Pulmonary and Critical Care Medicine 05/08/24 Team Status: Active Member Role Status Dates Dr. Yaw Singh MD Primary Care Provider Active Team Status: Inactive Member Role Status Dates Dr. Yaw Singh MD Primary Care Provider Active Start: April 24, 2024 End: April 24, 2024 Dr. Gaudencio [place] MD Attending Provider Active Start: April 24, 2024 End: April 24, 2024 Dr. Gaudencio [place] MD Referring Provider Active Start: April 24, 2024 End: April 24, 2024 Team Status: Active Member Role Status Dates Dr. Yaw Singh MD Primary Care Provider Active Start: April 24, 2024 Dr. Nikita Jackson MD Attending Provider Active S tart: April 24, 2024 Team Status: Inactive Member Role Status Dates Dr. Yaw Singh MD Primary Care Provider Active Start: April 28, 2024 End: April 28, 2024 Dr. Nikita Jackson MD Attending Provider Active S tart: April 28, 2024 End: April 28, 2024 Dr. Gaudencio [place] MD Referring Provider Active Start: April 28, 2024 End: April 28, 2024 Team Status: Inactive Member Role Status Dates Dr. Yaw Singh MD Primary Care Provider Active Start: April 29, 2024 End: April 29, 2024 Dr. Yaw Singh MD Referring Provider Active Start: April 29, 2024 End: April 29, 2024 Vern Reed PA, PA Attending Provider Active Start: April 29, 2024 End: April 29, 2024 Team Status: Inactive Member Role Status Dates Dr. Yaw Singh MD Primary Care Provider Active Start: June 06, 2024 End: June 06, 2024 Dr. Nikita Jackson MD Attending Provider Active S tart: June 06, 2024 End: June 06, 2024 Dr. Nikita Jackson MD Referring Provider Active S tart: June 06, 2024 End: June 06, 2024 Team Status: Inactive Member Role Status Dates Dr. Yaw Singh MD Primary Care Provider Active Start: June 30, 2024 End: June 30, 2024 Dr. Nikita Jackson MD Attending Provider Active S tart: June 30, 2024 End: June 30, 2024 Dr. Nikita Jackson MD Referring Provider Active S tart: June 30, 2024 End: June 30, 2024 Team Status: Active Member Role Status Dates Dr. Yaw Singh MD Primary Care Provider Active Start: June 30, 2024 Dr. Nikita Jackson MD Attending Provider Active S tart: June 30, 2024 Dr. Nikita Jackson MD Referring Provider Active S tart: June 30, 2024 Dr. Nikita Jackson MD Other Provider Active Start : June 30, 2024 Demand Planning Analyst Relationship Specialty Start Date End Date Yaw Singh MD [address] [place], [place] [id number] PCP - General Family Medicine 08/27/20 Madan Roy MD [address] [place] [address] Physician Radiation Oncology 04/28/20 Luly Gaffney RN Specialty Airport Utility Worker Oncology 05/18/20 Richard Jenkins DO [address] [place], [place] [phone] Referring Hematology/Oncology 05/25/20 Haroldo Noland MD [address] [facility] [address] [place], [place] 517481 Cardiology 06/24/20 Sena Seymour, MICHELE Sueding Machine Tender 10/06/20 Bud Beck DO [address] [phone] Gastroenterology 01/15/24 Paige Helen 01/29/24 Danielle Kelly APRN.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 [address] [place], [place] 928861 [facility] 03/15/24 Usha Mcgovern PA-C [address] [place] [address] [facility] 03/15/24 Helen Blair MD [address] [place] [address] Pulmonary and Critical Care Medicine 05/08/24 Demand Planning Analyst Relationship Specialty Start Date End Date Yaw Singh MD [address] [place] [address] PCP - General Family Medicine 08/27/20 Madan Roy MD [address] [place] [address] Physician Radiation Oncology 04/28/20 Luly Gaffney RN Specialty Airport Utility Worker Oncology 05/18/20 Richard Jenkins DO [address] [place] [address] Referring Hematology/Oncology 05/25/20 Haroldo Noland MD 1761 [facility] [address] [place], [place] 284381 Cardiology 06/24/20 Sena Seymour, MICHELE Sueding Machine Tender 10/06/20 Bud Beck DO [address] [facility] [address] [address] Gastroenterology 01/15/24 Helen Gibson 01/29/24 Danielle Kelly APRN.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 [address] [place], [place] 413571 [facility] 03/15/24 Usha Mcgovern PA-C [address] [place] [address] [facility] 03/15/24 Helen Blair MD [address] [place] [address] Pulmonary and Critical Care Medicine 05/08/24 Josue Oquendo, field sales associateSales Representative Education Courses 07/10/24 Demand Planning Analyst Relationship Specialty Start Date End Date Yaw Singh MD [address] [place], [place] [id number] PCP - General Family Medicine 08/27/20 Madan Roy MD [address] [place], [place] 143881 Physician Radiation Oncology 04/28/20 Luly Gaffney RN Specialty Airport Utility Worker Oncology 05/18/20 Richard Jenkins DO [address] [place] [address] Referring Hematology/Oncology 05/25/20 Haroldo Noland MD [address] [place], [place] 048941 Cardiology 06/24/20 Sena Seymour, RN Sueding Machine Tender 10/06/20 Bud Beck DO [address] [address] [place], [place] [phone] Gastroenterology 01/15/24 Helen Gibson 01/29/24 Danielle Kelly APRN.[facility] [address] [place], [place] [phone] [facility] 03/15/24 Usha Mcgovern PA-C [address] [place], [place] [phone] [facility] 03/15/24 Helen Blair MD [address] [place] [address] [phone] Pulmonary and Critical Care Medicine 05/08/24 Josue Oquendo field sales associateSales Representative Education Courses 07/10/24 Demand Planning Analyst Relationship Specialty Start Date End Date Yaw Singh MD [address] [place] [address] PCP - General Family Medicine 08/27/20 Madan Roy MD [address] [place], [place] [phone] Physician Radiation Oncology 04/28/20 Luly Gaffney RN Specialty Airport Utility Worker Oncology 05/18/20 Richard Jenkins DO [address] [place] [address] Referring Hematology/Oncology 05/25/20 Haroldo Noland MD [address] [place], [place] 767351 Cardiology 06/24/20 Sena Seymour, MICHELE Sueding Machine Tender 10/06/20 Bud Beck DO [address] [place], [place] [id number] Gastroenterology 01/15/24 Helen Gibson 01/29/24 Danielle Kelly APRN.[facility] [address] [place], [place] [phone] [facility] 03/15/24 Usha Mcgovern PA-C [address] [place], [place] [phone] [facility] 03/15/24 Helen Blair MD [address] [phone] Pulmonary and Critical Care Medicine 05/08/24 Josue Oquendo RN Sales Representative Education Courses 07/10/24 Demand Planning Analyst Relationship Specialty Start Date End Date Yaw Singh MD [address] [place], [place] [phone] PCP - General Family Medicine 08/27/20 Madan Roy MD [address] [place], [place] [phone] Physician Radiation Oncology 04/28/20 Luly Gaffney RN Specialty Airport Utility Worker Oncology 05/18/20 Richard Jenkins DO [address] [place], [place] [phone] Referring Hematology/Oncology 05/25/20 Haroldo Noland MD [address] [phone] Cardiology 06/24/20 Sena Seymour, MICHELE Sueding Machine Tender 10/06/20 Bud Beck DO [address] [facility] [address] [place], [place] 883921 Gastroenterology 01/15/24 Helen Gibson 01/29/24 Danielle Kelly APRN.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 [address] [place], [place] [phone] [facility] 03/15[facility]24 Usha Mcgovern PA-C [address] [place], [place] [phone] [facility] 03/15/24 Helen Blair MD [address] [phone] Pulmonary and Critical Care Medicine 05/08/24 Josue Oquendo field sales associateSales Representative Education Courses 07/10/24 08/19/24 Demand Planning Analyst Relationship Specialty Start Date End Date Yaw Singh MD [address] [place], [place] [id number] PCP - General Family Medicine 08/27/20 Madan [place] MD [address] [place] [address] Physician Radiation Oncology 04/28/20 Luly Gaffney RN Specialty Airport Utility Worker Oncology 05/18/20 Richard Jenkins DO [address] [place], [place] [phone] Referring Hematology/Oncology 05/25/20 Haroldo Noland MD [address] [facility] [address] [place], [place] [id number] Cardiology 06/24/20 Sena Seymour, RN Sueding Machine Tender 10/06/20 Bud Beck DO [address] [id number] Gastroenterology 01/15/24 Helen Gibson 01/29/24 Danielle Kelly APRN.[facility] [address] [place], [place] [phone] [facility] 03/15/24 Usha Mcgovern PA-C [address] [place], [place] [id number] [facility] 03/15/24 Helen Blair MD [address] [phone] Pulmonary and Critical Care Medicine 05/08/24 Demand Planning Analyst Relationship Specialty Start Date End Date Yaw Singh MD [address] [place], [place] [id number] PCP - General Family Medicine 08/27/20 Madan Roy MD [address], [place] [phone] Physician Radiation Oncology 04/28/20 Luly Gaffney RN Specialty Airport Utility Worker Oncology 05/18/20 Richard Jenkins DO [address] [place], [place] [phone] Referring Hematology/Oncology 05/25/20 Haroldo Noland MD [address] [facility] [address] [place], [place] [id number] Cardiology 06/24/20 Sena Seymour, MICHELE Sueding Machine Tender 10/06/20 Bud Beck DO [address] [address] Gastroenterology 01/15/24 Helen Gibson 01/29/24 Danielle Kelly APRN.[facility] [address] [place], [place] [phone] [facility] 03/15/24 Usha Mcgovern PA-C [address] [place], [place] [phone] [facility] 03/15/24 Helen Blair MD [address] [phone] Pulmonary and Critical Care Medicine 05/08/24 Demand Planning Analyst Relationship Specialty Start Date End Date Yaw Singh MD [address] [place], [place] [id number] PCP - General Family Medicine 08/27/20 Madan Roy MD [address] [facility] [place], [place] [phone] Physician Radiation Oncology 04/28/20 Luly Gaffney RN Specialty Airport Utility Worker Oncology 05/18/20 Richard Jenkins DO [address] [facility] [place], [place] [phone] Referring Hematology/Oncology 05/25/20 Haroldo Noland MD [address] [facility] [place], [place] [id number] Cardiology 06/24/20 Sena Seymour, RN Sueding Machine Tender 10/06/20 Bud Beck DO [address] 884341 Gastroenterology 01/15/24 Helen Gibson 01/29/24 Danielle Kelly APRN.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 [address] [place], [place] [phone] [facility] 03/15/24 08/24/24 Usha Mcgovern PA-C [address] [place] [id number] [facility] 03/15/24 Helen Blair MD [address] [phone] Pulmonary and Critical Care Medicine 05/08/24 Josue Oquendo, field sales associateSales Representative Education Courses 07/10/24 08/19/24 Demand Planning Analyst Relationship Specialty Start Date End Date Yaw Singh MD [address] [place], [place] [id number] PCP - General Family Medicine 08/27/20 Madan Roy MD [address] [place], [place] [phone] Physician Radiation Oncology 04/28/20 Luly Gaffney RN Specialty Airport Utility Worker Oncology 05/18/20 Richard Jenkins DO [address] [place], [place] [phone] Referring Hematology/Oncology 05/25/20 Haroldo Noland MD [address] [facility] [address] [place], [place] 245131 Cardiology 06/24/20 Sena Seymour, RN Sueding Machine Tender 10/06/20 Friend, Bud Paul DO [address] [facility] [address] [place], [place] 262141 Gastroenterology 01/15/24 Helen Gibson 01/29/24 Uhsa Mcgovern PA-C [address] [place], [place] [phone] [facility] 03/15/24 Helen Blair MD [address] [phone] Pulmonary and Critical Care Medicine 05/08/24 Team Status: Inactive Member Role Status Dates Dr. Yaw Singh MD Primary Care Provider Active Start: July 22, 2024 End: July 22, 2024 Dr. Yaw Singh MD Referring Provider Active Start: July 22, 2024 End: July 22, 2024 SHEILA Becker Attending Provider Active Star t: July 22, 2024 End: July 22, 2024 Team Status: Inactive Member Role Status Dates Dr. Yaw Singh MD Primary Care Provider Active Start: September 02, 2024 End: September 02, 2024 Dr. Yaw Singh MD Referring Provider Active Start: September 02, 2024 End: September 02, 2024 SHEILA Becker Attending Provider Active Star t: September 02, 2024 End: September 02, 2024 Demand Planning Analyst Relationship Specialty Start Date End Date Yaw Singh MD [address] [place], [place] 690641 PCP - General Family Medicine 08/27/20 Madan Roy MD [address] [address] Physician Radiation Oncology 04/28/20 Luly Gaffney, MICHELE Specialty Airport Utility Worker Oncology 05/18/20 Richard Jenkins DO [address] [place] [address] Referring Hematology/Oncology 05/25/20 Haroldo Noland MD [address] [place], [place] 318381 Cardiology 06/24/20 Sena Seymour RN Sueding Machine Tender 10/06/20 Bud Beck DO [address] [place], [place] 636561 Gastroenterology 01/15/24 Helen Gibson 01/29/24 Usha Mcgovern PA-C [address] [place] [address] [facility] 03/15/24 Helen Blair MD [address] [phone] Pulmonary and Critical Care Medicine 05/08/24 Demand Planning Analyst Relationship Specialty Start Date End Date Yaw Singh MD [address] [place], [place] 574551 PCP - General Family Medicine 08/27/20 Madan Roy MD [address] [place] [address] Physician Radiation Oncology 04/28/20 Luly Gaffney RN Specialty Airport Utility Worker Oncology 05/18/20 Richard Jenkins DO [address] [place], [place] 222961 Referring Hematology/Oncology 05/25/20 Haroldo Noland MD [address] [facility] [place] [address] Cardiology 06/24/20 Sena Seymour, MICHELE Sueding Machine Tender 10/06/20 Bud Beck DO [address] [facility] [address] [place], [place] 214991 Gastroenterology 01/15/24 Helen Gibson 01/29/24 Helen Blair MD [address] [phone] Pulmonary and Critical Care Medicine 05/08/24 Danielle Kelly APRN.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 [address] [place], [place] [phone] [facility] 09/08/24 Usha Mcgovern PA-C [address] [place], [place] 800241 [facility] 09/08/24 Demand Planning Analyst Relationship Specialty Start Date End Date Yaw Singh MD [address] [place], [place] [id number] PCP - General Family Medicine 08/27/20 Madan Roy MD [address] [address] Physician Radiation Oncology 04/28/20 Luly Gaffney RN Specialty Airport Utility Worker Oncology 05/18/20 Richard Jenkins DO [address] [place], [place] [phone] Referring Hematology/Oncology 05/25/20 Haroldo Noland MD [address] [facility] [address] [place] [address] Cardiology 06/24/20 Sena Seymour, MICHELE Sueding Machine Tender 10/06/20 Bud Beck DO [address] [facility] [address] [place], [place] [id number] Gastroenterology 01/15/24 Helen Gibson 01/29/24 Danielle Kelly, ADALGISA.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 [address] [place] [address] [facility] 03/15/24 08/24/24 Usha Mcgovern PA-C [address] [place] [address] [phone] [facility] 03/15/24 09/07/24 Helen Blair MD [address] [address] Pulmonary and Critical Care Medicine 05/08/24 Josue Oquendo RN Sales Representative Education Courses 07/10/24 08/19/24 Danielle Kelly, ADALGISA.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 [employer] [place], [place] 517521 [facility] 09/08/24 Usha Mcgovern PA-C [employer] [place], [place] [phone] [facility] 09/08/24 Demand Planning Analyst Relationship Specialty Start Date End Date Yaw Singh MD [address] [place], [place] [phone] PCP - General Family Medicine 08/27/20 Madan Roy MD [address] [place], [place] [phone] Physician Radiation Oncology 04/28/20 Luly Gaffney, MICHELE Specialty Airport Utility Worker Oncology 05/18/20 Richard Jenkins DO [address] [place], [place] [phone] Referring Hematology/Oncology 05/25/20 Haroldo Noland MD [address] [facility] [address] [place] [address] Cardiology 06/24/20 Sena Seymour, MICHELE Sueding Machine Tender 10/06/20 Bud Beck DO [address] [facility] [address] [place], [place] 745911 Gastroenterology 01/15/24 Helen Gibson 01/29/24 Helen Blair MD [address] [address] Pulmonary and Critical Care Medicine 05/08/24 Danielle Kelly APRN.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 [address] [place], [place] [phone] [facility] 09/08/24 Usha Mcgovern PA-C [address] [place] [address] [facility] 09/08/24 Demand Planning Analyst Relationship Specialty Start Date End Date Yaw Singh MD [address] [place], [place] 725121 PCP - General Family Medicine 08/27/20 Madan Roy MD [address] [place], [place] 918801 Physician Radiation Oncology 04/28/20 Luly Gaffney RN Specialty Airport Utility Worker Oncology 05/18/20 Richard Jenkins DO [address] [place], [place] [phone] Referring Hematology/Oncology 05/25/20 Haroldo Noland MD [address] [place] [address] Cardiology 06/24/20 Sena Seymour, MICHELE Sueding Machine Tender 10/06/20 Bud Beck DO [address] [place] [address] Gastroenterology 01/15/24 Helen Gibson 01/29/24 Helen Blair MD [address] [address] Pulmonary and Critical Care Medicine 05/08/24 Danielle Kelly APRN.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 [address] [place], [place] [phone] [facility] 09/08/24 Usha Mcgovern PA-C [address] [place], [place] 597311 [facility] 09/08/24 Team Status: Inactive Member Role Status Dates Dr. Yaw Singh MD Primary Care Provider Active Start: September 17, 2024 End: September 17, 2024 Dr. Sushant Tom MD Emergency Provider Active Sta rt: September 17, 2024 End: September 17, 2024 Demand Planning Analyst Relationship Specialty Start Date End Date Yaw Singh MD [address] [place], [place] 428881 PCP - General Family Medicine 08/27/20 Madan Roy MD [address] [place] [address] Physician Radiation Oncology 04/28/20 Luly Gaffney RN Specialty Airport Utility Worker Oncology 05/18/20 Richard Jenkins DO [address] [place] [address] Referring Hematology/Oncology 05/25/20 Haroldo Noland MD [address] [place] [address] Cardiology 06/24/20 Sena Seymour, MICHELE Sueding Machine Tender 10/06/20 Bud Beck DO [address] [address] [place], [place] 537821 Gastroenterology 01/15/24 Helen Gibson 01/29/24 Helen Blair MD [address] [address] Pulmonary and Critical Care Medicine 05/08/24 Danielle Kelly APRN.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 [address]40 [facility], [place] [address]81 [facility] 09/08/24 Usha Mcgovern PA-C 1740 [facility] [place] [address] [facility] 09/08/24 Demand Planning Analyst Relationship Specialty Start Date End Date Yaw Singh MD [address]40 [facility] [place] [address] PCP - General Family Medicine 08/27/20 Madan Roy MD [address] [place] [address] Physician Radiation Oncology 04/28/20 Luly Gaffney RN Specialty Airport Utility Worker Oncology 05/18/20 Richard Jenkins DO [address] [place], [place] 233901 Referring Hematology/Oncology 05/25/20 Haroldo Noland MD [address] [place] [address] Cardiology 06/24/20 Sena Seymour, MICHELE Sueding Machine Tender 10/06/20 Bud Beck DO [address] [place] [address] Gastroenterology 01/15/24 Helen Gibson 01/29/24 Helen Blair MD [address] [phone] Pulmonary and Critical Care Medicine 05/08/24 Danielle Kelly APRN.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 1740 [facility], [place] 546301 [facility] 09/08/24 Usha Mcgovern PA-C [address]40 [facility] [place] [address] [facility] 09/08/24 Demand Planning Analyst Relationship Specialty Start Date End Date Yaw Singh MD [address]40 [facility], [place] 323971 PCP - General Family Medicine 08/27/20 Madan Roy MD [address] [place] [address] Physician Radiation Oncology 04/28/20 Luly Gaffney RN Specialty Airport Utility Worker Oncology 05/18/20 Richard Jenkins DO [address] [facility], [place] [phone] Referring Hematology/Oncology 05/25/20 Haroldo Noland MD [address] [facility] [address] [place] [address] Cardiology 06/24/20 Sena Seymour, MICHELE Sueding Machine Tender 10/06/20 Bud Beck DO [address] [place], [place] 748941 Gastroenterology 01/15/24 Helen Gibson 01/29/24 Helen Blair MD [address] [place] [address] [phone] Pulmonary and Critical Care Medicine 05/08/24 Danielle Kelly APRN.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 1740 [facility], [place] 788811 [facility] 09/08/24 Usha Mcgovern PA-C 1740 [facility] [place] [address] [facility] 09/08/24 Demand Planning Analyst Relationship Specialty Start Date End Date Yaw Singh MD [address]40 [facility], [place] 445931 PCP - General Family Medicine 08/27/20 Madan Roy MD [address] [place], [place] 168881 Physician Radiation Oncology 04/28/20 Luly Gaffney RN Specialty Airport Utility Worker Oncology 05/18/20 Richard Jenkins DO [address] [place], [place] [phone] Referring Hematology/Oncology 05/25/20 Haroldo Noland MD [address] [facility] [address] [place], [place] 511861 Cardiology 06/24/20 Sena Seymour, RN Sueding Machine Tender 10/06/20 Bud Beck DO [address] [facility] [address] [place], [place] 977231 Gastroenterology 01/15/24 Helen Gibson 01/29/24 Helen Blair MD [address] [place] [address] [phone] Pulmonary and Critical Care Medicine 05/08/24 Danielle Kelly APRN.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 [address] [place], [place] 989791 [facility] 09/08/24 Usha Mcgovern PA-C [address] [place], [place] [phone] [facility] 09/08/24 Demand Planning Analyst Relationship Specialty Start Date End Date Yaw Singh MD [address] [place], [place] [phone] PCP - General Family Medicine 08/27/20 Madan Roy MD [address] [place], [place] 90217691 Physician Radiation Oncology 04/28/20 Luly Gaffney RN Specialty Airport Utility Worker Oncology 05/18/20 Richard Jenkins DO [address] [place], [place] [phone] Referring Hematology/Oncology 05/25/20 Haroldo Noland MD [address] [facility] [address] [place], [place] 827381 Cardiology 06/24/20 Sena Seymour, RN Sueding Machine Tender 10/06/20 Bud Beck DO [address] [facility] [address] [place], [place] [phone] Gastroenterology 01/15/24 Helen Gibson 01/29/24 Helen Blair MD [address] [place] [address] [phone] Pulmonary and Critical Care Medicine 05/08/24 Danielle Kelly APRN.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 [address] [place], [place] 745551 [facility] 09/08/24 Usha Mcgovern PA-C [address] [place], [place] [phone] [facility] 09/08/24 Demand Planning Analyst Relationship Specialty Start Date End Date Yaw Singh MD [address] [place], [place] [id number] PCP - General Family Medicine 08/27/20 Madan Roy MD [address] [place], [place] [phone] Physician Radiation Oncology 04/28/20 Luly Gaffney RN Specialty Airport Utility Worker Oncology 05/18/20 Richard Jenkins DO [address] [place], [place] [phone] Referring Hematology/Oncology 05/25/20 Haroldo Noland MD [address] [place], [place] 648001 Cardiology 06/24/20 Sena Seymour, RN Sueding Machine Tender 10/06/20 Bud Beck DO [address] [place], [place] [phone] Gastroenterology 01/15/24 Helen Gibson 01/29/24 Helen Blair MD [address] [place] [address] [phone] Pulmonary and Critical Care Medicine 05/08/24 Danielle Kelly APRN.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 [address] [place], [place] [phone] [facility] 09/08/24 Usha Mcgovern PA-C [address] [place], [place] [phone] [facility] 09/08/24 Demand Planning Analyst Relationship Specialty Start Date End Date Yaw Singh MD [address] [place], [place] [phone] PCP - General Family Medicine 08/27/20 Madan Roy MD [address] [place], [place] [phone] Physician Radiation Oncology 04/28/20 Luly Gaffney RN Specialty Airport Utility Worker Oncology 05/18/20 Richard Jenkins DO [address] [place], [place] [phone] Referring Hematology/Oncology 05/25/20 Haroldo Noland MD [address] [place], [place] [id number] Cardiology 06/24/20 Sena Seymour, MICHELE Sueding Machine Tender 10/06/20 Bud Beck DO [address] [place], [place] [id number] Gastroenterology 01/15/24 Helen Gibson 01/29/24 Helen Blair MD [address] [place] [address] [phone] Pulmonary and Critical Care Medicine 05/08/24 Danielle Kelly APRN.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 [address] [place], [place] [phone] [facility] 09/08/24 Usha Mcgovern PA-C [address] [place] [address] [facility] 09/08/24 Team Status: Active Member Role/Relationship Status Dates Dr. Yaw Singh MD Primary Care Provider Active Team Status: Inactive Member Role/Relationship Status Dates Dr. Yaw Singh MD Primary Care Provider Active Start: June 30, 2024 End: June 30, 2024 Dr. Nikita Jackson MD Attending Provider Active S tart: June 30, 2024 End: June 30, 2024 Dr. Nikita Jackson MD Referring Provider Active S tart: June 30, 2024 End: June 30, 2024 Team Status: Active Member Role/Relationship Status Dates Dr. Yaw Singh MD Primary Care Provider Active Start: June 30, 2024 Dr. Nikita Jackson MD Attending Provider Active S tart: June 30, 2024 Dr. Nikita Jackson MD Referring Provider Active S tart: June 30, 2024 Dr. Nikita Jackson MD Other Provider Active Start : June 30, 2024 Team Status: Inactive Member Role/Relationship Status Dates Dr. Yaw Singh MD Primary Care Provider Active Start: July 22, 2024 End: July 22, 2024 Dr. Yaw Singh MD Referring Provider Active Start: July 22, 2024 End: July 22, 2024 SHEILA Becker Attending Provider Active Star t: July 22, 2024 End: July 22, 2024 Team Status: Inactive Member Role/Relationship Status Dates Dr. Yaw Singh MD Primary Care Provider Active Start: September 02, 2024 End: September 02, 2024 Dr. Yaw Singh MD Referring Provider Active Start: September 02, 2024 End: September 02, 2024 Maggie Mosquera , PA Attending Provider Active Star t: September 02, 2024 End: September 02, 2024 Team Status: Inactive Member Role/Relationship Status Dates Dr. Yaw Singh MD Primary Care Provider Active Start: September 17, 2024 End: September 17, 2024 Dr. Sushant Tom MD Attending Provider Active Sta rt: September 17, 2024 End: September 17, 2024 Dr. Sushant Tom MD Emergency Provider Active Sta rt: September 17, 2024 End: September 17, 2024 Team Status: Inactive Member Role/Relationship Status Dates Dr. Yaw Singh MD Primary Care Provider Active Start: October 15, 2024 End: October 15, 2024 Dr. Nikita Jackson MD Attending Provider Active S tart: October 15, 2024 End: October 15, 2024 Dr. Nikita Jackson MD Referring Provider Active S tart: October 15, 2024 End: October 15, 2024 Team Status: Active Member Role/Relationship Status Dates Dr. Yaw Singh MD Primary Care Provider Active Start: October 15, 2024 Dr. Nikita Jackson MD Attending Provider Active S tart: October 15, 2024 Dr. Nikita Jackson MD Referring Provider Active S tart: October 15, 2024 Dr. Nikita Jackson MD Other Provider Active Start : October 15, 2024 Demand Planning Analyst Relationship Specialty Start Date End Date Yaw Singh MD [address] [place], [place] [id number] PCP - General Family Medicine 08/27/20 Madan Roy MD [address] [place], [place] 82630691 Physician Radiation Oncology 04/28/20 Luly Gaffney RN Specialty Airport Utility Worker Oncology 05/18/20 Richard Jenkins DO [address] [place], [place] [phone] Referring Hematology/Oncology 05/25/20 Haroldo Noland MD [address] [facility] [address] [place], [place] 645281 Cardiology 06/24/20 Sena Seymour, RN Sueding Machine Tender 10/06/20 Kiran Bud HumbertoDO [address] [facility] [address] [place], [place] 051031 Gastroenterology 01/15/24 Helen Gibson 01/29/24 Helen Blair MD [address] [phone] Pulmonary and Critical Care Medicine 05/08/24 Danielle Kelly APRN.[facility] [address] [place], [place] 102741 [facility] 09/08/24 Usha Mcgovern PA-C [address] [place], [place] [phone] [facility] 09/08/24 Demand Planning Analyst Relationship Specialty Start Date End Date Yaw Singh MD [address] [place], [place] [id number] PCP - General Family Medicine 08/27/20 Madan Roy MD [address] [place], [place] 452541 Physician Radiation Oncology 04/28/20 Luly Gaffney RN Specialty Airport Utility Worker Oncology 05/18/20 Richard Jenkins DO [address] [place], [place] 120931 Referring Hematology/Oncology 05/25/20 Haroldo Noland MD [address] [facility] [address] [place], [place] 814921 Cardiology 06/24/20 Sena Seymour, RN Sueding Machine Tender 10/06/20 Bud Beck DO [address] [facility] [facility] [address] [place], [place] 752921 Gastroenterology 01/15/24 Star Gibsona 01/29/24 Helen Blair MD [address] [phone] Pulmonary and Critical Care Medicine 05/08/24 Danielle Kelly APRN.[facility] [address] [place], [place] 842611 [facility] 09/08/24 Usha Mcgovern PA-C [address] [place], [place] [phone] [facility] 09/08/24 Demand Planning Analyst Relationship Specialty Start Date End Date Yaw Singh MD [address] [place], [place] [phone] PCP - General Family Medicine 08/27/20 Madan Roy MD [address] [facility] [place] 193681 Physician Radiation Oncology 04/28/20 Luly Gaffney RN Specialty Airport Utility Worker Oncology 05/18/20 Richard Jenkins DO [address] [facility] [place], [place] [phone] Referring Hematology/Oncology 05/25/20 Haroldo Noland MD [address] [facility] [address] [place], [place] 537531 Cardiology 06/24/20 Sena Seymour, RN Sueding Machine Tender 10/06/20 Bud Beck DO [address] [facility] [facility] [address] [place], [place] 047761 Gastroenterology 01/15/24 Helen Gibson 01/29/24 Helen Blair MD [address] [facility]. [address] [place] [address] [phone] Pulmonary and Critical Care Medicine 05/08/24 Danielle Kelly APRN.[facility] [address] [place], [place] 786031 [facility] 09/08/24 Usha Mcgovern PA-C [address] [place], [place] [phone] [facility] 09/08/24 Demand Planning Analyst Relationship Specialty Start Date End Date Yaw Singh MD [address] [place], [place] [id number] PCP - General Family Medicine 08/27/20 Madan Roy MD [address] [place], [place] 80085691 Physician Radiation Oncology 04/28/20 Luly Gaffney RN Specialty Airport Utility Worker Oncology 05/18/20 Richard Jenkins DO [address] [facility] [place], [place] [phone] Referring Hematology/Oncology 05/25/20 Haroldo Noland MD [address] [facility] [address] [place], [place] 061151 Cardiology 06/24/20 Sena Seymour, RN Sueding Machine Tender 10/06/20 Bud Beck DO [address] [facility] [address] [place], [place] [phone] Gastroenterology 01/15/24 Helen Gibson 01/29/24 Helen Blair MD [address] [phone] Pulmonary and Critical Care Medicine 05/08/24 Danielle Kelly APRN.[facility] [address] [place], [place] [phone] [facility] 09/08/24 Usha Mcgovern PA-C [address] [place], [place] [phone] [facility] 09/08/24 Demand Planning Analyst Relationship Specialty Start Date End Date Yaw Singh MD [address] [place], [place] [id number] PCP - General Family Medicine 08/27/20 Madan Roy MD [address] [place], [place] [phone] Physician Radiation Oncology 04/28/20 Luly Gaffney RN Specialty Airport Utility Worker Oncology 05/18/20 Richard Jenkins DO [address] [facility] [place], [place] [phone] Referring Hematology/Oncology 05/25/20 Haroldo Noland MD [address] [facility] [address] [place], [place] 171771 Cardiology 06/24/20 Sena Seymour, RN Sueding Machine Tender 10/06/20 Bud Beck DO [address] [facility] [facility] [address] [place], [place] 672061 Gastroenterology 01/15/24 Helen Gibson 01/29/24 Helen Blair MD [address] [phone] Pulmonary and Critical Care Medicine 05/08/24 Danielle Kelly APRN.[facility] [address] [place], [place] [phone] [facility] 09/08/24 Usha Mcgovern PA-C [address] [place], [place] [phone] [facility] 09/08/24 Demand Planning Analyst Relationship Specialty Start Date End Date Yaw Singh MD [address] [place], [place] [id number] PCP - General Family Medicine 08/27/20 Madan Roy MD [address] [place], [place] [phone] Physician Radiation Oncology 04/28/20 Luly Gaffney RN Specialty Airport Utility Worker Oncology 05/18/20 Richard Jenkins DO [address] [facility] [place], [place] [phone] Referring Hematology/Oncology 05/25/20 Haroldo Noland MD [address] [facility] [address] [place], [place] 843701 Cardiology 06/24/20 Sean Seymour, MICHELE Sueding Machine Tender 10/06/20 Bud Beck DO [address] [facility] [address] [place], [place] 340521 Gastroenterology 01/15/24 Star Gibsona 01/29/24 Helen Blair MD [address] [id number] Pulmonary and Critical Care Medicine 05/08/24 Danielle Kelly APRN.[facility] [address] [place], [place] [id number] [facility] 09/08/24 Usha Mcgovern PA-C [address] [place], [place] [id number] [facility] 09/08/24 Demand Planning Analyst Relationship Specialty Start Date End Date Yaw Singh MD [address] [place], [place] [id number] PCP - General Family Medicine 08/27/20 Madan Roy MD [address] [facility] [place], [place] [id number] Physician Radiation Oncology 04/28/20 Luly Gaffney RN Specialty Airport Utility Worker Oncology 05/18/20 Richard Jenkins DO [address], [place] [phone] Referring Hematology/Oncology 05/25/20 Haroldo Noland MD [address] [facility] [address] [place], [place] [address] Cardiology 06/24/20 Sena Seymour, RN Sueding Machine Tender 10/06/20 Friend, Bud HumbertoDO [address] [facility] [address] [place], [place] [id number] Gastroenterology 01/15/24 Helen Gibson 01/29/24 Helen Blair MD [address] [phone] Pulmonary and Critical Care Medicine 05/08/24 Danielle Kelly, ADALGISA.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 [address] [place], [place] [id number] [facility] 09/08/24 Usha Mcgovern PA-C [address] [place], [place] [id number] [facility] 09/08/24 Team Status: Inactive Member Role/Relationship Status Dates Dr. Yaw Singh MD Primary Care Provider Active Start: July 22, 2024 End: July 22, 2024 Dr. Yaw Singh MD Referring Provider Active Start: July 22, 2024 End: July 22, 2024 SHEILA Becker Attending Provider Active Star t: July 22, 2024 End: July 22, 2024 Team Status: Inactive Member Role/Relationship Status Dates Dr. Yaw Singh MD Primary Care Provider Active Start: September 02, 2024 End: September 02, 2024 Dr. Yaw Singh MD Referring Provider Active Start: September 02, 2024 End: September 02, 2024 SHEILA Becker Attending Provider Active Star t: September 02, 2024 End: September 02, 2024 Team Status: Inactive Member Role/Relationship Status Dates Dr. Yaw Singh MD Primary Care Provider Active Start: September 17, 2024 End: September 17, 2024 Dr. Sushant Tom MD Attending Provider Active Sta rt: September 17, 2024 End: September 17, 2024 Dr. Sushant Tom MD Emergency Provider Active Sta rt: September 17, 2024 End: September 17, 2024 Team Status: Inactive Member Role/Relationship Status Dates Dr. Yaw Singh MD Primary Care Provider Active Start: October 15, 2024 End: October 15, 2024 Dr. Nikita Jackson MD Attending Provider Active S tart: October 15, 2024 End: October 15, 2024 Dr. Nikita Jackson MD Referring Provider Active S tart: October 15, 2024 End: October 15, 2024 Team Status: Active Member Role/Relationship Status Dates Dr. Yaw Singh MD Primary Care Provider Active Start: October 15, 2024 Dr. Nikita Jackson MD Attending Provider Active S tart: October 15, 2024 Dr. Nikita Jackson MD Referring Provider Active S tart: October 15, 2024 Dr. Nikita Jackson MD Other Provider Active Start : October 15, 2024 Team Status: Active Member Role/Relationship Status Dates Dr. Yaw Singh MD Primary Care Provider Active Start: November 14, 2024 Dr. Yaw Singh MD Referring Provider Active Start: November 14, 2024 SHEILA Coreas Attending Provider Active Star t: November 14, 2024 Team Status: Inactive Member Role/Relationship Status Dates Dr. Yaw Singh MD Primary Care Provider Active Start: November 14, 2024 End: November 14, 2024 Dr. Haroldo Noland MD Attending Provider Active S tart: November 14, 2024 End: November 14, 2024 Team Status: Inactive Member Role/Relationship Status Dates Dr. Yaw Singh MD Primary Care Provider Active Start: November 14, 2024 End: November 14, 2024 Dr. Yaw Singh MD Referring Provider Active Start: November 14, 2024 End: November 14, 2024 SHEILA Coreas Attending Provider Active Star t: November 14, 2024 End: November 14, 2024 Team Status: Inactive Member Role/Relationship Status Dates Dr. Yaw Singh MD Primary Care Provider Active Start: September 02, 2024 End: September 02, 2024 Dr. Yaw Singh MD Referring Provider Active Start: September 02, 2024 End: September 02, 2024 SHEILA Becker Attending Provider Active Star t: September 02, 2024 End: September 02, 2024 Team Status: Inactive Member Role/Relationship Status Dates Dr. Yaw Singh MD Primary Care Provider Active Start: September 17, 2024 End: September 17, 2024 Dr. Sushant Tom MD Attending Provider Active Sta rt: September 17, 2024 End: September 17, 2024 Dr. Sushant Tom MD Emergency Provider Active Sta rt: September 17, 2024 End: September 17, 2024 Team Status: Inactive Member Role/Relationship Status Dates Dr. Yaw Singh MD Primary Care Provider Active Start: October 15, 2024 End: October 15, 2024 Dr. Nikita Jackson MD Attending Provider Active S tart: October 15, 2024 End: October 15, 2024 Dr. Nikita Jackosn MD Referring Provider Active S tart: October 15, 2024 End: October 15, 2024 Team Status: Active Member Role/Relationship Status Dates Dr. Yaw Singh MD Primary Care Provider Active Start: October 15, 2024 Dr. Nikita Jackson MD Attending Provider Active S tart: October 15, 2024 Dr. Nikita Jackson MD Referring Provider Active S tart: October 15, 2024 Dr. Nikita Jackson MD Other Provider Active Start : October 15, 2024 Team Status: Inactive Member Role/Relationship Status Dates Dr. Yaw Singh MD Primary Care Provider Active Start: November 14, 2024 End: November 14, 2024 Dr. Yaw Singh MD Referring Provider Active Start: November 14, 2024 End: November 14, 2024 SHEILA Coreas Attending Provider Active Star t: November 14, 2024 End: November 14, 2024 Team Status: Inactive Member Role/Relationship Status Dates Dr. Yaw Singh MD Primary Care Provider Active Start: November 14, 2024 End: November 14, 2024 Dr. Haroldo Noland MD Attending Provider Active S tart: November 14, 2024 End: November 14, 2024 Team Status: Inactive Member Role/Relationship Status Dates Dr. Yaw Singh MD Primary Care Provider Active Start: November 26, 2024 End: November 26, 2024 SHEILA Coreas Attending Provider Active Star t: November 26, 2024 End: November 26, 2024 SHEILA Coreas Referring Provider Active Star t: November 26, 2024 End: November 26, 2024 Team Status: Active Member Role/Relationship Status Dates Dr. Yaw Singh MD Primary Care Provider Active Start: December 03, 2024 SHEILA Coreas Attending Provider Active Star t: December 03, 2024 SHEILA Coreas Referring Provider Active Star t: December 03, 2024 Team Status: Inactive Member Role/Relationship Status Dates Dr. Yaw Singh MD Primary Care Provider Active Start: December 03, 2024 End: December 03, 2024 SHEILA Coreas Attending Provider Active Star t: December 03, 2024 End: December 03, 2024 SHEILA Coreas Referring Provider Active Star t: December 03, 2024 End: December 03, 2024 Demand Planning Analyst Relationship Specialty Start Date End Date Yaw Singh MD [address] [place], [place] [phone] PCP - General Family Medicine 08/27/20 Madan Roy MD [address] [place], [place] [phone] Physician Radiation Oncology 04/28/20 Luly Gaffney RN Specialty Airport Utility Worker Oncology 05/18/20 Richard Jenkins DO [address] [place], [place] [phone] Referring Hematology/Oncology 05/25/20 Haroldo Noland MD [address] [facility] [address] [address] Cardiology 06/24/20 Sena Seymour, MICHELE Sueding Machine Tender 10/06/20 Bud Beck DO [address] [id number] Gastroenterology 01/15/24 Helen Gibson 01/29/24 Helen Blair MD [address] [address] Pulmonary and Critical Care Medicine 05/08/24 Danielle Kelly APRN.[facility] [address] [place], [place] [phone] [facility] 09/08/24 Usha Mcgovern PA-C [address] [place], [place] [id number] [facility] 09/08/24 Demand Planning Analyst Relationship Specialty Start Date End Date Yaw Singh MD [address] [place], [place] [phone] PCP - General Family Medicine 08/27/20 Madan Roy MD [address] [facility] [place] [address] Physician Radiation Oncology 04/28/20 Luly Gaffney, MICHELE Specialty Airport Utility Worker Oncology 05/18/20 Richard Jenkins DO [address] [facility] [place], [place] [phone] Referring Hematology/Oncology 05/25/20 Haroldo Noland MD [address] [facility] [address] [place] [address] Cardiology 06/24/20 Sena Seymour, RN Sueding Machine Tender 10/06/20 Bud Beck DO [address] [facility] [address] [place], [place] [address] Gastroenterology 01/15/24 Helen Gibson 01/29/24 Helen Blair MD [address] [id number] Pulmonary and Critical Care Medicine 05/08/24 Danielle Kelly APRN.[facility] [address] [place], [place] [id number] [facility] 09/08/24 Usha Mcgovern PA-C [address] [place], [place] [address] [facility] 09/08/24 Demand Planning Analyst Relationship Specialty Start Date End Date Yaw Singh MD [address] [place], [place] [id number] PCP - General Family Medicine 08/27/20 Madan Roy MD [address] [place] [address] Physician Radiation Oncology 04/28/20 Luly Gaffney RN Specialty Airport Utility Worker Oncology 05/18/20 Richard Jenkins DO [address] [place] [address] Referring Hematology/Oncology 05/25/20 Haroldo Noland MD [address] [facility] [address] [place], [place] [address] Cardiology 06/24/20 Sena Seymour, MICHELE Sueding Machine Tender 10/06/20 Friend, Bud Paul DO [address] [facility] [address] [place], [place] [id number] Gastroenterology 01/15/24 Helen Gibson 01/29/24 Helen Blair MD [address] [place] [id number] Pulmonary and Critical Care Medicine 05/08/24 Danielle Kelly APRN.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 [address] [place], [place] [phone] [facility] 09/08/24 Usha Mcgovern PA-C [address] [place], [place] [phone] [facility] 09/08/24 Goals (unrecognized section and content) Goals may be documented in a n alternate sectionGoals may be documented in an alternate sectionGoals may be documented in an alternate sectionGoals may be documented in an alternate sectionGoals may be documented in an alternate sectionGoals may be documented in an alternate sectionGoals may be documented in an alternate sectionGoals may be documented in an alternate section Inactive Administered Medications - up to 3 most recent administrations Administered Medications (un recognized section and content) Medication Order MAR Action Action Date Dose Rate Site lactated ringers iv infusion 30 mL/hr, INTRAVENOUS, CONTINUOUS, Starting on Sun06/05/23 at 1230, Until Sun06/05/23 at 1433, Preprocedure New Bag/Syringe/Bottle 06/05/2023 12:45 PM EST 30 mL/hr 30 mL/hr FOR RECORDS PERTAINING TO PATIENTS WHO ARE OR HAVE BEEN ENROLLED IN A CHEMICAL DEPENDENCY/SUBSTANCEABUSE PROGRAM, SOME INFORMATION MAY BE OMITTED. This clinical summary was aggregated from multiple sources. Caution should be exercised in using it in the provision of clinical care. This summary normalizes information from multiple sources, and as a consequence, information in this document may materially change the coding, format and clinical context of patient data. In addition, data may be omitted in some cases. CLINICAL DECISIONS SHOULD BE BASED ON THE PRIMARY CLINICAL RECORDS. [employer] [facility]. provides no warranty or guarantee of the accuracy or completeness of information in this document.
--- NOTE | 2025-03-05 17:33 | EX.ED.DYSGE1 ---
HPI History of Present Illness Chief Complaint: Lower Extremity Injury Narrative Narrative: Chief complaint and HPI: 69-year-old male with past medical history HTN, HLD, ESRD on HD presents for evaluation of left thigh pain. Patient states yesterday he had a procedure done on his left upper extremity fistula by Dr. Jackson. He states shortly after the procedure he started to develop left thigh pain. States that it has progressively worsened and that he is unable to ambulate because of the pain. He states it starts in his left thigh and radiates up into his hip. He denies any injury or fall. He denies any rash or swelling. Denies any fever, chills, shortness of breath, chest pain, abdominal pain, nausea, vomiting, numbness/tingling. Denies any pain in the left upper extremity. Review of systems: See HPI Medications: As listed on the chart Allergies: As listed on the chart PFSH: Per chart Vital signs: As listed on the chart. Reviewed. Physical exam: Gen: A&O x3, NAD Head: Normocephalic, atraumatic Eyes: No sclera icterus, conjunctiva clear ENT: Moist mucous membranes CV: RRR, no murmurs, no peripheral edema, left upper extremity with good thrill in the fistula, there is a small stitch in the fistula from previous surgery without erythema or signs of infection, radial pulse +2 bilaterally Resp: Lungs CTA BL, no w/r/c GI: Abd soft, non-distended, non-tender, no r/r/g Musc: Full active range of motion of all the extremities except for the left lower extremity secondary to pain in the left thigh. Full passive range of motion although endorses pain in the left thigh with movement. Compartments soft. No external signs of trauma including ecchymosis, swelling, crepitus, warmth, erythema. Left thigh tender to palpation diffusely. Left hip nontender to palpation. Knee nontender to palpation. Joints are not erythematous/warm/swollen. Femoral/DP/PT pulses +2 bilaterally. Skin: Warm, dry Neuro: Alert, oriented, grossly intact, sensation intact Psych: Cooperative, appropriate mood and affect [facility] Medical History Thrombocytopenia Wears glasses Cancer Cancer Pressure ulcer History of renal dialysis History of renal disease Injury of back History of GI bleed Gastric reflux Shortness of breath on exertion History of stress test History of echocardiogram Cardiology follow-up encounter Thrombus of venous dialysis catheter ESRD (end stage renal disease) on dialysis Acute respiratory insufficiency Medical non-compliance Acute exacerbation of chronic heart failure Chronic kidney disease (CKD) Pleural effusion Dyspnea Acute kidney injury Adenocarcinoma of esophagus LEELA (acute kidney injury) Non-smoker Esophageal carcinoma Atherosclerosis of coronary artery of [place] heart without angina pectoris 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 Essential (primary) hypertension Non-rheumatic aortic stenosis Syncope and collapse Hyperlipidemia Atherosclerotic heart disease of [place] coronary artery with other forms of angina pectoris Encounter for long-term current use of high risk medication abnormal stress test Angina pectoris Exertional chest pain Home Medications Medication Instructions Recorded Last Taken Type atorvastatin 80 mg tablet 80 mg PO QHS CHOLESTEROL #90 tabs 05/15/22 12/24/23 Rx ezetimibe 10 mg tablet 10 mg PO DAILY CHOLESTEROL #90 tabs 05/15/22 12/24/23 Rx metoprolol tartrate 25 mg tablet 25 mg PO BID #0 tabs 10/25/23 06/30/24 05:30 Rx pantoprazole 40 mg tablet,delayed 40 mg PO BID #0 tabs 10/25/23 06/30/24 05:30 Rx release ferrous sulfate 325 mg (65 mg 325 mg PO DAILY #90 tabs 11/20/23 06/29/24 Rx iron) tablet polyethylene glycol 3350 17 17 g PO DAILY PRN constipation 12/04/23 Unknown History gram/dose oral powder (Miralax) ondansetron 4 mg disintegrating 4 mg PO Q8H PRN PRN nausea and 12/25/23 12/25/23 08:00 History tablet vomiting nitroglycerin 0.4 mg sublingual 0.4 mg sublingual PRN PRN angina 02/14/24 Unknown History tablet aspirin 81 mg chewable tablet 81 mg PO BID #0 tabs 02/17/24 03/03/25 Rx acetaminophen 500 mg tablet 1,000 mg PO Q8 PRN pain 04/29/24 Unknown History amoxicillin 500 mg tablet 2,000 mg (4 x 500 mg) PO ONCE #4 04/29/24 Unknown Rx tabs oxycodone 5 mg tablet 5 mg PO Q8H PRN pain 2 days #6 tabs 06/30/24 Unknown Rx oxycodone-acetaminophen 5 mg-325 1 tab PO Q6H PRN PRN pain 5 days 09/17/24 Unknown Rx mg tablet #20 TABLETS Allergy/AdvReac Type Severity Reaction Status Date / Time No Known Allergies Allergy Verified 03/05/25 16:46 Family History Father Heart disease Myocardial infarction Hypertension Brother Hypertension Sister Heart disease Myocardial infarction Surgical History History of hip replacement (~02/2024) History of cardiac catheterization History of esophagogastroduodenoscopy (EGD) Hx of surgical procedure History of aortic valve replacement (03/03/19) History of coronary artery stent placement (12/31/18) H/O coronary artery bypass surgery (09/18/02) History of tonsillectomy History of hernia repair Social History Smoking Status: Never smoker alcohol intake: never substance use type: does not use caffeine: No what type of physical activity do you participate in: walking frequency: daily EXAM Physical Exam Const Vital Signs: 03/05/25 16:44 03/05/25 18:46 03/05/25 19:45 Temperature 98.1 F Temperature Source Temporal Pulse Rate 90 84 90 Respiratory Rate 22 H 21 H 14 Blood Pressure 129/78 H 125/69 H 125/69 H Blood Pressure Mean 95 87 87 Pulse Ox 99 95 92 Oxygen Delivery Method Room Air Room Air 03/05/25 21:00 03/05/25 23:16 Temperature Temperature Source Pulse Rate 84 88 Respiratory Rate 35 H Blood Pressure 124/71 H 125/67 H Blood Pressure Mean 88 86 Pulse Ox 99 100 Oxygen Delivery Method Room Air Room Air MDM MDM MDM Narrative Medical decision making narrative: 69-year-old male with past medical history HTN, HLD, ESRD on HD presents for evaluation of left thigh pain. Patient states yesterday he had a procedure done on his left upper extremity fistula by Dr. Jackson. He states shortly after the procedure he started to develop left thigh pain. States that it has progressively worsened and that he is unable to ambulate because of the pain. He states it starts in his left thigh and radiates up into his hip. He denies any injury or fall. He denies any rash or swelling. Denies any fever, chills, shortness of breath, chest pain, abdominal pain, nausea, vomiting, numbness/tingling. Denies any pain in the left upper extremity. See physical exam findings. Differential diagnosis includes but is not limited to myofascial spasm, contusion, occult fracture, vascular stenosis, DVT, rhabdomyolysis. Given patient's vascular history we will obtain CTA with runoff this will also allow me to assess muscles and bone. Will obtain basic labs including lactic and CPK. I do not have venous duplex ultrasound to assess for DVT. Fentanyl and Zofran ordered for pain. On chart review, patient had a malfunction of her left upper extremity AV fistula with arm swelling and prolonged bleeding. He had a fistulogram performed yesterday with angioplasty of the left innominate vein by Dr. Jackson. Fentanyl and Zofran ordered for symptoms. Did not get morphine given his renal disease. CBC without leukocytosis. Patient has baseline anemia of 11.8. Thrombocytopenia at 141. Patient has this on previous labs. INR 1.6. BMP shows baseline CKD with a BUN of 35 and creatinine at 2.8. Patient states he was supposed to get dialysis today but instead it is scheduled for tomorrow given the holiday. He was made aware he needs to get dialysis as he received contrast. Lactic acid unremarkable. CPK unremarkable. Patient had a delayed stay in the emergency department secondary to CTA not being read by radiology. We called multiple times. We were informed that only one radiologist can read this imaging at this time in which they contacted them multiple times for read. Patient was updated of this. CTA abdomen with runoff shows PAD. Runoff to the left ankle/foot via the posterior tibial artery, but the anterior tibial and peroneal arteries are not definitely patent in the lower leg. Similar findings in the right leg. No acute or aggressive osseous abnormalities. Patient has moderate left and small right basilar pleural effusions with adjacent atelectasis. Patient is due for dialysis tomorrow. He has no shortness of breath. No chest pain. Not hypoxic. Left hip hemiarthroplasty with intact appearing hardware. 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 Unremarkable superficial soft tissues. At this point in time, no clear etiology to explain patient's thigh pain. Given that patient follows with vascular surgery, I did contact Dr. Jackson. These are chronic changes. Not the source of his thigh pain. At this point in time I suspect that his thigh pain is likely muscular in nature. Will ambulate the patient. We did attempt to ambulate the patient without a walker however he was unable to do it secondary to pain. Patient will warrant admission for PT/OT evaluation and possible rehab placement. Patient confirmed understand the plan. Patient was discussed with the hospice service who accepted admission under observation. Impression: 1. Left thigh pain 2. Inability to ambulate secondary to #1 3. ESRD on HD Lab Data Labs: Laboratory Results - last 24 hr 03/05/25 17:35 WBC 9.5 RBC 3.84 L Hgb 11.8 L Hct 36.0 L MCV 93.8 MCH 30.7 MCHC 32.8 RDW Std Deviation 46.2 H RDW Coeff of Marcos 13.6 Plt Count 141 L MPV 9.5 Immature Gran % (Auto) 0.500 Neut % (Auto) 88.4 H Lymph % (Auto) 3.5 L Wolfe % (Auto) 7.3 Eos % (Auto) 0.1 Baso % (Auto) 0.2 Absolute Neuts (auto) 8.4 H Absolute Lymphs (auto) 0.33 L Nucleated RBC % 0 PT 19.7 H INR 1.6 APTT 39.6 H Sodium 135 Potassium 4.0 Chloride 94 L Carbon Dioxide 29.4 Anion Gap 11 BUN 35 H Creatinine 2.80 H Estim Creat Clear Calc 23.09 L Est GFR (MDRD) Non-Af 24 L BUN/Creatinine Ratio 12.5 Glucose 125 H Lactic Acid 1.3 Calcium 9.0 Total Creatine Kinase 26 Radiography Diagnostic Testing: Clinical Impression(s) from Imaging Studies Abdomen/Pelvis CTA 03/05/25 18:12 IMPRESSION: Advanced peripheral atherosclerotic vascular disease as described. There is runoff to the left ankle/foot via the posterior tibial artery, but the anterior tibial and peroneal arteries are not definitively patent in the lower leg. Similar findings in the right leg. Conventional angiography could better evaluate. No acute or aggressive osseous abnormality appreciated. Multiple additional chronic/degenerative ancillary findings as noted above. Reading Location: [id number] Discharge Plan Triage Chief Complaint: Lower Extremity Injury ED Provider: Robert Duff Dx/Rx/DC Orders Prescriptions: No Action atorvastatin 80 mg tablet 80 mg PO QHS Qty: 90 3RF ezetimibe 10 mg tablet 10 mg PO DAILY Qty: 90 3RF ferrous sulfate 325 mg (65 mg iron) tablet 325 mg PO DAILY Qty: 90 3RF acetaminophen 500 mg tablet 1,000 mg PO Q8 PRN (Reason: pain) Rx Instructions: Take Tylenol this way for 5 to 7 days postoperatively and then okay to go back and use as needed amoxicillin 500 mg tablet 2,000 mg PO ONCE Qty: 4 0RF Rx Instructions: Take one hour prior to dental cleanings/procedure metoprolol tartrate 25 mg Tablet 25 mg PO BID Qty: 0 0RF pantoprazole 40 mg Tablet,Delayed Release (Dr/Ec) 40 mg PO BID Qty: 0 0RF polyethylene glycol 3350 [Miralax] 17 gram/dose powder 17 g PO DAILY PRN (Reason: constipation) ondansetron 4 mg tablet,disintegrating 4 mg PO Q8H PRN PRN (Reason: nausea and vomiting) oxycodone 5 mg tablet 5 mg PO Q8H PRN (Reason: pain) 2 Days Qty: 6 0RF oxycodone-acetaminophen 5-325 mg tablet 1 tab PO Q6H PRN PRN (Reason: pain) 5 Days Qty: 20 0RF nitroglycerin 0.4 mg tablet, sublingual 0.4 mg sublingual PRN PRN (Reason: angina) aspirin 81 mg Tablet,Chewable 81 mg PO BID Qty: 0 0RF Rx Instructions: Take for 30 days postop and then okay to discontinue Primary Care Provider: Yaw Singh Referrals: Yaw Singh MD [Primary Care Provider, Family Practice] Print Language: Syrian
[2025-03-05 17:49] LABS: Hematocrit 36.0 % (40-54); Hemoglobin 11.8 g/dL (13.0-16.5); Immature Granulocytes Count 0.050 X10^3/uL (0.0-0.0); Mean Corp Hgb Conc 32.8 g/dL (32-36); Mean Corpuscular Volume 93.8 fL (80-94); Mean Platelet Vol. 9.5 fl (6.2-12.0); NRBC Flagged by Analyzer 0 % (0-5); POSITIVE DIFFERENTIAL YES; Platelet Count 141 K/mm3 (150-450); RBC Distribution Width CV 13.6 % (11.6-14.6); RBC Distribution Width SD 46.2 fl (35.1-43.9); Red Blood Count 3.84 M/mm3 (4.6-6.2); White Blood Count 9.5 K/mm3 (4.4-11.0)
[2025-03-05] MEDS: fentaNYL 100 MCG/2 ML Ampul 50 MCG IV (17:50)
[2025-03-05 17:57] LABS: Prothrombin Time (Protime)PT. 19.7 SECONDS (11.7-14.9)
[2025-03-05 17:58] LABS: Partial Thromboplast Time 39.6 Seconds (24.1-36.2)
--- NOTE | 2025-03-05 18:12 | CT_ITS ---
PROCEDURE: CTA ABD W/RUNOFF W/WO CONTRAST 03/05/2025 REASON FOR EXAM: L THIGH PAIN, R/O VASCULAR, MUSCLE, BONE PATHOLOGY TECHNIQUE: Procedure Code: [id number] Modality: CT Procedure: CTA ABD W/RUNOFF W/WO CONTRAST Multiplanar Sagittal and Coronal images were obtained. 3D post processing was performed. CONTRAST: Isovue 370 VOLUME: 75 mL One or more dose reduction techniques were used (e.g., Automated exposure control, adjustment of the mA and/or kV according to patient size, use of iterative reconstruction technique). RADIATION DOSE SUMMARY: DLP: 1112.3 mGycm COMPARISON: Abdominal CTA 11/14/2023. FINDINGS: AORTA: Abdominal aorta is tortuous but normal in caliber. No aneurysm or dissection. Major branch vessels of the celiac axis, SMA, EDE, bilateral renal arteries, common, internal and external iliac arteries are patent, normal in caliber. Moderate atherosclerotic disease. LOWER EXTREMITY RUNOFF (BILATERAL): Patent to the level of the bilateral popliteal arteries at the knees, without hemodynamically significant stenosis on either side. Advanced peripheral atherosclerotic disease. On the left, the vessels are patent to the trifurcation, with patency of the posterior tibial artery with runoff to the ankle/foot. The left peroneal artery is patent but becomes diminutive and not definitively opacified past the level of the ankle. Anterior tibial artery is not definitively opacified past the level of the ankle, without discrete opacification of the dorsalis pedis. On the right, the vessels are weakly opacified past the distal popliteal artery through the trifurcation, and not definitively patent. The right posterior tibial artery appears to reconstitute distally at the level of the ankle/foot. No opacification of the anterior tibial and peroneal arteries appreciated. NON-ANGIOGRAPHIC FINDINGS: Postoperative changes of esophagectomy and gastric pull up in the posterior mediastinum. Moderate left and small right basilar pleural effusions, likely loculated, with adjacent atelectasis. Aortic TAVR hardware, and moderate-advanced coronary artery calcifications. Punctate calcified granulomas in the spleen. Atrophic kidneys suggesting chronic renal disease. No hydronephrosis. Tiny nonobstructive right renal stones, and multifocal cortical scarring in the right lower pole may be sequelae of prior infection or trauma. Enlarged prostate. Thickening/hypertrophy of the urinary bladder wall. Distal colonic diverticulosis without evidence for active diverticulitis. No ascites or free air. No acute fracture or dislocation appreciated. Multilevel degenerative changes of the visualized spine with several chronic thoracolumbar compression fracture deformities. Status post left hip hemiarthroplasty with intact appearing hardware. Mild-moderate tricompartmental arthrosis of bilateral knees. No aggressive osseous erosion or destruction appreciated. Unremarkable superficial soft tissues. CT/CTA Abd w/Runoff W/WO Contrast IMPRESSION: Advanced peripheral atherosclerotic vascular disease as described. There is run off to the left ankle/foot via the posterior tibial artery, but the anterior tibial and peroneal arteries are not definitive ly patent in the lower leg. Similar findings in the right leg. Conventional angiography could better evaluate. No acute or aggressive osseous abnormality appreciated. Multiple additional ch ronic/degenerative ancillary findings as noted above. Reading Location: [id number]
[2025-03-05 18:15] LABS: Anion Gap 11 (5-15); BUN 35 mg/dL (4-19); BUN/Creat Ratio 12.5 RATIO (10-20); Calcium,Total 9.0 mg/dL (7.6-11.0); Carbon Dioxide 29.4 mmol/L (21.0-32.0); Chloride 94 mmol/L (98-108); Estimated Creatinine Clearance 23.09 ml/min (50-250); Glucose 125 mg/dL (70-99); Potassium 4.0 mmol/L (3.3-5.1)
[2025-03-05 18:46] VITALS: BP 125/69; PULSE 84; RESP 21; O2SAT 95
[2025-03-05 18:46] LABS: CPK Total, Creatine Kinase 26 U/L (24-195)
[2025-03-05 19:45] VITALS: BP 125/69; PULSE 90; RESP 14; O2SAT 92
[2025-03-05 21:00] VITALS: BP 124/71; PULSE 84; RESP 35; O2SAT 99
[2025-03-05 23:16] VITALS: BP 125/67; PULSE 88; O2SAT 100
[2025-03-06] VITALS (14 sets, daily range): BP systolic 91–130; BP diastolic 61–79; PULSE 60–100; RESP 13–24; TEMP 36.5–37.4; O2SAT 96–100; BMI 21.6
--- NOTE | 2025-03-06 00:50 | ED.RN ---
PT IS UNAWARE OF HOME MEDICATIONS.
--- OUTSIDE RECORDS SUMMARY | 2025-03-06 01:05 | XMS RPT_ITS | CCD ---
Author Organization [facility] Care Team Providers Care Skip Pitman Name Role Phone KATHI BEASLEY Unavailable Unavailable CEBUL III, DANE A Unavailable Unavailable Pawa, Pratheep Unavailable Unavailable Cebul, Dane A Primary Care Provider Gilberto Ramos Primary Care Provider Gilberto Ramos DO Primary Care Provider Kirill MANNING MD, Daesung Unavailable Yeimy BAUTISTA, Luly Unavailable Unavailable Masci DO, Richard A Unavailable Ludin, Ewing S Unavailable Yaw Singh MD Primary Care Provider Sena Martinez Unavailable Unavailable Masci DO, Richard A Unavailable Sena Seymour RN Unavailable Unavailable Kirill MANNING MD, Daesung Unavailable Yeimy BAUTISTA, Luly Unavailable Unavailable Masci DO, Richard A Unavailable Ludin, Haroldo S Unavailable Yaw Singh MD Primary Care Provider Ludin, Ewing S Unavailable Yaw Singh MD Primary Care Provider Kirill MANNING MD, Daesung Unavailable Yeimy BAUTISTA, Luly Unavailable Unavailable Masci DO, Richard A Unavailable Ludin, Haroldo S Unavailable Yaw Singh MD Primary Care Provider Sena Seymour RN Unavailable Unavailable Dr. Yaw Singh Primary Care Provider Dr. Yaw Singh Referring Provider [facility] BILLBOARD ERECTOR HELPER, BILLBOARD ERECTOR HELPER-C Angel Donis Attending Provider Yeimy BAUTISTA, Luly Unavailable Unavailable Ludin, Haroldo S Unavailable Ludin MANNING Ewing S Unavailable RICHARD JENKINS Referring Unavailable YAW SINGH Primary Care Unavailable RICHARD JENKINS Referring Unavailable YAW SINGH Primary Care Unavailable Kirill MANNING, Madan Unavailable Yaw Singh MD Primary Care Provider Yaw Singh MD Primary Care Provider Bud Beck [...] Unavailable Anisa RN, Maegan Phyllis Unavailable Robin GLEZN.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, Unavailable Usha Mcgovern PA-C Unavailable Rossy MANNING, [...] Azra BAUTISTA, Josue B Unavailable Unavailable Robin COMPANY DANCER.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, Unavailable Samantha MANNING, Dr. Tidwell Primary Care Provider Manuel MANNING, Dr. Shelton Attending Provider [phone] Samantha MANNING, Dr. Tidwell Referring Provider Maggie Potter Attending Provider [phone] Robin COMPANY DANCER.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, Unavailable Mcgovern PA-C, Usha Unavailable Mcgovern PA-C, [...] Referring Unavailable Samantha, Yaw Primary Care Unavailable [place], Nikita Attending Unavailable Manuel, Nikita Attending Unavailable [...] Yaw Referring Unavailable Mosquera, Maggie Attending Unavailable [place], Nikita Attending Unavailable Samantha, Yaw Primary Care Unavailable Mosquera, Maggie Referring Unavailable Manuel, Nikita Attending Unavailable Manuel, Nikita Consulting Unavailable Manuel, Nikita Referring Unavailable Samantha, Yaw Primary Care Unavailable [place], Nikita Consulting Unavailable [place], Nikita Referring Unavailable Samantha, Yaw Primary Care Unavailable Manuel, Nikita Attending Unavailable Haroldo Noland Attending Unavailable Samantha, Yaw Primary Care Unavailable Samantha, Yaw Referring Unavailable Samantha, Yaw Primary Care Unavailable Mosquera, Maggie Attending Unavailable River, Fidelnia Attending Unavailable Samantha, Yaw Primary Care Unavailable Samantha, Yaw Primary Care Unavailable Sushant Tom Attending Unavailable Yari, Jayaprakas Referring Unavailable Samantha, Yaw Primary Care Unavailable [place], Nikita Attending Unavailable Samantha, Yaw Primary Care Unavailable Manuel, Nikita Attending Unavailable Trinh Briones Attending Unavailable Samantha, Yaw Primary Care Unavailable Yari, Jayaprakas Referring Unavailable Yari, Jayaprakas Attending Unavailable Samantha, Yaw Primary Care Unavailable [place], Nikita Referring Unavailable Samantha, Yaw Primary Care Unavailable Nikita Jackson Attending Unavailable SAMANTHA, YAW A Primary Care Unavailable MASCI, RICHARD A Referring Unavailable SAMANTHA, YAW A Primary Care Unavailable MASCI, RICHARD A Referring Unavailable GADIEL, ZIAD Referring Unavailable SAMANTHA, YAW A Primary Care Unavailable SAMANTHA, YAW A Attending Unavailable SAMANTHA, YAW A Primary Care Unavailable SAMANTHA, YAW A Primary Care Unavailable BOBBY BRUCE Attending Unavailable SAMANTHA, YAW A Primary Care Unavailable SAMANTHA, YAW A Referring Unavailable SAMANTHA, YAW A Primary Care Unavailable USHA MCGOVERN Referring Unavailable SAMANTHA, YAW A Referring Unavailable DELICIA DÍAZ Attending Unavaila ble SAMANTHA, YAW A Primary Care Unavailable SAAMNTHA, YAW A Attending Unavailable SAMANTHA, YAW A [...] Care Unavailable USHA MCGOVERN Attending Unavailable SAMANTHA, YAW A Primary Care [...] Unavailable YAW SINGH A Primary Care Unavailable YAW SINGH Attending Unavailable YAW SINGH Primary Care Unavailable YAW SINGH Primary Care Unavailable STEVE YOUSSEF Attending Unavailable YAW SINGH Primary Care Unavailable RICHARD JENKINS Attending Unavailable Allergies Allergy Classification Reported Allergen(s) Allergy Type Date of Onset Reaction(s) Facility (7 sources) bee pollen Propensity to adverse reactions to drug 4 Shortness Of Breath [place], [place] (7 sources) Seasonal allergy Propensity to adverse reactions to substance 4 Other (See Comments) [place] (20 sources) Environmental allergies [Other] Propensity to adverse reactions 6 Other: See Comments [facility] Work Phone: (2 sources) Environmental Allergies: Uncoded Allergy to substance 3 Itching [facility] (20 sources) Seasonal allergy; Translations: [SEASONAL ALLERGIES] Allergy to substance 4 Other: See Comments [facility] Medications Current Medications Medication Drug Class(es) Dates [...] on above: Take 1 capsule by mo [facility] twice daily for 7 days. cetirizine hydrochloride [...] nasal spray Indications: Seasonal allergies Use 1 Byron in each nostril once daily. 1 Each [...] on above: Take 1 capsule by mo [facility] daily at bedtime. OLANZapine 2.5 mg oral [...] (DEFINITY) injection 1.65 mg polyethylene glycol 3350 61465 mg powder for oral solution (20 sources) [...] 2023 2:20pm End: 03-30-2023 polyethylene glycol 3350 (VT RALAX, GLYCOLAX) 17 gram/dose powder Take by [...] hours as needed for pain. Given at [facility] 09/10/23 01/03/2024 Discontinued (Course of therapy [...] Fri. Weekly bmp and cbc. Fax to [phone]. Start: 10-23-2023 End: 12-04-2023 Cefazolin 2 gram recon soln Discontinued 2 g IV .see below 33 October 23, 2023 12:00am December 04, 2023 2:22pm stop date 11/25/23. Dx: strep bacteremia. cefazolin iv with dialysis: 2gm on Mon, 2gm on Wed, 3gm on Fri. Weekly bmp and cbc. Fax to [phone]. clindamycin 10 mg/ml topical lotion (12 sources) [...] 4:55pm docusate sodium 50 mg / sennosides, nursing home 8.6 mg oral tablet (9 sources) [...] (LASIX ORAL) Take by mouth. Given at [facility] 09/10/23 10/05/2023 Discontinued (Course of therapy completed) End: 10-05-2023 furosemide (LASIX ORAL) Take by mouth. Given at [facility] 09/10/23 0 10/05/2023 Discontinued (Course of therapy completed) furosemide (LASI X ORAL) Take by mouth. Given at [facility] 09/10/23 0 Active Comment on above: [...] on above: Take 2 tablets by mo [facility] twice daily. hydroCHLOROthiazide 25 mg oral tablet [...] q 5min prn ches t pain nystatin [id number] unt/ml topical cream (20 sources) Polyene Antifungal [...] affected ar ea two times a day. Qphnf-2a-Nyp-Epa-Fish Oil-D3 (3 sources) Start: 01-24-20 End: 12-31-19 Pqdmx-7r-Kxs-Epa-Fis h Oil-D3 Discontinued 1 EACH PO DAILY January 23, 2014 12:00am December 30, 2020 8:31am Byarg-9s-Cwh-Epa-Fish Oil-D3 1 EACH capsule (9 sources) Start: 01-24-20 End: 12-31-19 take 1 capsule by mouth once daily Lpkhv-1b-Rma-Epa-Fis h Oil-D3 1 EACH capsule Discontinued 1 [...] ) 0.65 % nasal spray Use 1 Byron in the nose as needed for cold/allergy symptoms. 30 mL 1 03/17/2022 01/03/2024 Discontinued (Other) Start: 03-22-2021 End: 06-21-2022 sodium chloride 0.9 % (flush ) 10 mL (BD POSIFLUSH) Start: 03-03-2019 End: 03-07-2019 sodium chloride flush 0.9 % injection 10 mL Start: 03-03-2019 0.9 % sodium c hloride infusion Comment on above: Use 1 Byron in the n ose as needed for [...] sources) Coronary atherosclerosis; Translations: [Coronary arteriosclerosis in [place] artery] Onset: 9 03-12-2019 Chronic Comment on above: AXK-HOX-Tyxwem RPDA w/ 2.25 x 16 mm Promus Premier, APPLE-Distal RCA w/ 4.0 x 16 mm Promus Premier and APPLE-Mid RCA w/ 4.0 x 16 mm Promus Premier 07/23/2014; ERW-ZIE-Iajyvq SVG-D1 w/ 3.5 x 18 mm Xience [...] sources) Long-term current use of anticoagulant; Translations: [penitentiary (current) use of anticoagulants] 11-14-2023 Episodic Other aftercare (9 sources) Long-term current use of drug therapy; Translations: [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] 08-12-2018 Episodic Other aftercare [...] 08-05-2024 Episodic Other aftercare (1 source) 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 T, [facility] Referring Dr.: Dr. Kody Fragoso MD Status: REG RCR Insurance: MEDICARE PART A B [facility] Discharge Summary D/C summary: It has been [...] please feel free to call me at [phone]. Thank you for the referral of this patient. Sincerely, Derrick Neves, PT, Cert MDT, OCS Balance/Gait/Functional tests Balance/Special Test Scores Oswestry Low Back Score: 30 02/05/25 0952 CC: Dr. Yaw Singh MD; Dr. Kody Fragoso MD JLA Signed Normal [facility] MR/BMS.BVSon 02-04-2025 MR/BMS.BVS [facility] Vascular Surgery [address] [place] [address]. [address] [place] [address] OFFICE VISIT Date of Service: 02/04/25 MR#: [id number] Acct: [id number] Name: JACOB LANDA Rep #: [id number] : 1955 Provider: SHEILA Becker Age/Sex: 69/M Location: [facility] [place].BVS Status: Signed Intake Vital [...] air Intake Visit Reasons: swelling in arm Associate Counsel Required: No Accompanied by: Self Is patient [...] during dialysis. Denies pain, numbness or tingling. 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 Normal [facility] 12 Lead EKGon 01-30-2025 12 Lead EKG [facility] Cardiovascular Services [address] [place] [address] 12 Lead EKG 01/30/25 1345 MR#: [id number] Acct: [id number] Name: JACOB LANDA Rep #: [id number] : 1955 69 From: Trinh Briones MD [...] undetermined Abnormal ECG Confirmed by TRINH BRIONES ([id number]), editor farm journal CYNTHIA JOHN ([id number]) on 02/02/2025 6:40:55 AM Referred By: ER Confirmed By: TRINH BRIONES 02/02/25 0640 Date Trinh Briones MD CC: Dr. Fidelina Holman MD; Dr. Yaw Singh MD Signed Normal [facility] Basic Metabolic Profile (BMP )on 01-30-2025 BUN/CRE 8.5 RATIO Low 01-26 [facility] Comment on above: Performed By: #### L 100.0100, L500.2500 ####[facility] [address] [place], [address] Calcium [Mass/Vol] 7.9 mg/dL Normal 7.6-11.0 [facility] Comment on above: Performed By: #### L 100.0100, L500.2500 ####[facility] [address] [place], [address] Chloride [Moles/Vol] 98 mmol/L Normal 98-108 [facility] Comment on above: Performed By: #### L 100.0100, L500.2500 ####[facility] [address] [place], [address] CO2 [Moles/Vol] 32.7 mmol/L High 21.0-32.0 [facility] Comment on above: Performed By: #### L 100.0100, L500.2500 ####[facility] [address] [place], [address] Creatinine [Mass/Vol] 1.65 mg/dL High 0.70-1.20 [facility] Comment on above: Performed By: #### L 100.0100, L500.2500 ####[facility] [address] [place], [address] ECRCL 41.66 ml/min Low 50-250 [facility] Comment on above: Performed By: #### L 100.0100, L500.2500 ####[facility] [address] [place], [address] GAP 9 Normal 5-15 [facility] Comment on above: Performed By: #### L 100.0100, L500.2500 ####[facility] [address] [place], [address] GFR/1.73 sq M.predicted among non-blacks MDRD (S/P/Bld) [Vol rate/Area] 44 mL/min/{1.73_m2} Low >60 [facility] Comment on above: Result Comment: mL/m in/1.73m2 CKD-EPI Creatinine Equation (2020) Performed By: #### L 100.0100, L500.2500 ####[facility] [address] [place], [address] Glucose [Mass/Vol] 82 mg/dL Normal 70-99 [facility] Comment on above: Performed By: #### L 100.0100, L500.2500 ####[facility] [address] [place], [address] Potassium [Moles/Vol] 3.4 mmol/L Normal 3.3-5.1 [facility] Comment on above: Performed By: #### L 100.0100, L500.2500 ####[facility] [address] [place], [address] Sodium [Moles/Vol] 140 mmol/L Normal 133-145 [facility] Comment on above: Performed By: #### L 100.0100, L500.2500 ####[facility] [address] [place], [address] Urea nitrogen [Mass/Vol] 14 mg/dL Normal 4-19 [facility] Comment on above: Performed By: #### L 100.0100, L500.2500 ####[facility] [address] [place], [address] CBC W/Diff, Automatedon 10-2 Absolute Lymph 0.72 X10 3/uL Low 0.83-4.51 [facility] Comment on above: Performed By: #### L 100.0100, L500.2500 ####[facility] [address] [place], [address] Absolute Neut 2.3 X10 3/uL Normal 2.0-7.7 [facility] Comment on above: Performed By: #### L 100.0100, L500.2500 ####[facility] [address] [place], [address] Basophils/100 WBC (Bld) 1.1 % High 0-1 [facility] Comment on above: Performed By: #### L 100.0100, L500.2500 ####[facility] [address] [place], [address] Eosinophils/100 WBC (Bld) 3.2 % Normal 0-5 [facility] Comment on above: Performed By: #### L 100.0100, L500.2500 ####[facility] [address] [place], [address] Erythrocyte distribution width (RBC) [Ratio] 13.5 % Normal 11.6-14.6 [facility] Comment on above: Performed By: #### L 100.0100, L500.2500 ####[facility] [address] [place], [address] Hematocrit (Bld) [Volume fraction] 33.9 % Low 40-54 [facility] Comment on above: Performed By: #### L 100.0100, L500.2500 ####[facility] [address] [place], [address] Hemoglobin (Bld) [Mass/Vol] 11.0 g/dL Low 13.0-16.5 [facility] Comment on above: Performed By: #### L 100.0100, L500.2500 ####[facility] [address] [place], [address] IG% 0.500 Normal 0.0-0.9 [facility] Comment on above: Result Comment: IG% - Immature Granulocytes (promyelocytes, myelocytes and metamyelocytes) > 1% indicates that a LEFT SHIFT is Present. Performed By: #### L 100.0100, L500.2500 ####[facility] [address] [place], [address] Lymphocytes/100 WBC (Bld) 19.3 % Normal 19-41 [facility] Comment on above: Performed By: #### L 100.0100, L500.2500 ####[facility] [address] [place], [address] MCH (RBC) [Entitic mass] 31.0 pg Normal 27.0-32.0 [facility] Comment on above: Performed By: #### L 100.0100, L500.2500 ####[facility] [address] [place], [address] MCHC (RBC) [Mass/Vol] 32.4 g/dL Normal 32-36 [facility] Comment on above: Performed By: #### L 100.0100, L500.2500 ####[facility] [address] [place], [address] MCV (RBC) [Entitic vol] 95.5 fL High 80-94 [facility] Comment on above: Performed By: #### L 100.0100, L500.2500 ####[facility] [address] [place], [address] Monocytes/100 WBC (Bld) 13.1 % High 0-10 [facility] Comment on above: Performed By: #### L 100.0100, L500.2500 ####[facility] [address] [place], [address] Neutrophils/100 WBC (Bld) 62.8 % Normal 47-70 [facility] Comment on above: Performed By: #### L 100.0100, L500.2500 ####[facility] [address] [place], [address] Nucleated RBC (Bld) [#/Vol] 0 10*3/uL Normal 0-5 [facility] Comment on above: Performed By: #### L 100.0100, L500.2500 ####[facility] [address] [place], [address] Platelet mean volume (Bld) [Entitic vol] 9.1 fL Normal 6.2-12.0 [facility] Comment on above: Performed By: #### L 100.0100, L500.2500 ####[facility] [address] [place], [address] Platelets (Bld) [#/Vol] 156 10*3/uL Normal 150-450 [facility] Comment on above: Performed By: #### L 100.0100, L500.2500 ####[facility] [address] [place], [address] RBC (Bld) [#/Vol] 3.55 10*6/uL Low 4.6-6.2 [facility] Comment on above: Performed By: #### L 100.0100, L500.2500 ####[facility] [address] [place], [address] RDW SD 47.9 fl High 35.1-43.9 [facility] Comment on above: Performed By: #### L 100.0100, L500.2500 ####[facility] [address] [place], [address] WBC (Bld) [#/Vol] 3.7 10*3/uL Low 4.4-11.0 [facility] Comment on above: Performed By: #### L 100.0100, L500.2500 ####[facility] [address] [place], [address] Emergency Department Summary on 01-30-2025 Emergency Department Summary [facility] Medical Records Department [address] [place] [address] Emergency Department Summary 01/30/25 MR#: [id number] Acct: [id number] Name: JACOB LANDA Rep #: [id number] : 1955 69 From: Fidelina Holman MD [...] diarrhea today. Denies any dysuria or hematuria. 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 Normal [facility] AV Fistula/Dialysis Graft Sc anon 01-22-2025 AV Fistula/Dialysis Graft Scan [facility] Cardiovascular Services [address] [place] [address] AV Fistula/Dialysis Graft Scan 01/22/25 1309 MR#: [id number] Acct: [id number] Name: JACOB LANDA Rep #: [id number] : 1955 69 From: Nikita Jackson MD [...] Dictated: 01/22/25 1309 Date Transcribed: 01/22/25 155 Airveyor Operator: Signed Normal [facility] Inital Evaluation (1) - PTon 12-24-2024 Inital Evaluation (1) - PT [facility] Physical Therapy [address] [place] [address] / REHABILITATION SERVICES INITIAL EVALUATION MR#: [id number] Acct: [id number] Name: JACOB LANDA Rep #: [id number] : 1955 69 From: Derrick Neves PT, Cert. T, OCS Referring Dr.: Dr. Kody Fragoso MD Status: REG RCR Insurance: MEDICARE PART A B [facility] Patient's Visit Information Visit Information Visit Information: [...] Patient states that he went to the [place] [facility] the same day. Patient had MRI [...] and motor (more content not included)... Normal [facility] Magnetic resonance imaging r eportOrdered By: Odilon Maldonado on 12-05-2024 Study report [facility] Imaging Services [address], [place] [id number] Spine Lumbar (Routine) MR#: [id number] Acct: [id number] Name: JACOB LANDA Rep #: [id number] : 1955 M 69 From: Magalys Maldonado MD PCP: Dr. Yaw Singh MD Status: REG CLI Study:Spine Lumbar (Routine) Date of Exam: 12/03/24 Exam# [id number] Ordering Dr: Quang Ibarra PROCEDURE: SPINE LUMBAR [...] at T12 appears more recent. Reading Location[facility] CC: SHEILA Coreas; Dr. Yaw Singh MD ~ Airveyor Operator: Signed [facility] Spine Lumbar (Routine)on Spine Lumbar (Routine) [facility] Imaging Services [address] [place] [address] [id number] Spine Lumbar (Routine) MR#: [id number] Acct: [id number] Name: JACOB LANDA Rep #: [id number] : 1955 M 69 From: Odilon Maldonado MD PCP: Dr. Yaw Singh MD Status: REG CLI Study: Spine Lumbar (Routine) Date of Exam: 12/03/24 Exam# [id number] Ordering Dr: Connie Ibarra PROCEDURE: SPINE LUMBAR [...] at T12 appears more recent. Reading Location: [facility] CC: SHEILA Coreas; Dr. Yaw Singh MD Airveyor Operator: Signed Normal [facility] Bone density reportOrdered B y: Nino Wood on 11-26-2024 Study report Skeletal system DXA [facility] Imaging Services [address] [place] [address] [id number] Dexa Bone Density Study MR#: [id number] Acct: [id number] Name: JACOB LANDA Rep #: [id number] : 1955 M 69 From: Rik Wood MD PCP: Dr. Yaw Singh MD Status: REG CLI Study:Dexa Bone Density Study Date of Exam: 11/26/24 Exam# [id number] Ordering Dr: Quang Ibarra PROCEDURE: DEXA BONE [...] Recommend follow-up as clinically warranted. Reading Location: [facility] CC: SHEILA Coreas; Dr. Yaw Singh MD ~ Airveyor Operator: Signed [facility] Dexa Bone Density Studyon Dexa Bone Density Study [facility] Imaging Services [address] [place] [address] [id number] Dexa Bone Density Study MR#: [id number] Acct: [id number] Name: JACOB LANDA Rep #: [id number] : 1955 M 69 From: Nino porter MD PCP: Dr. Yaw Signh MD Status: REG CLI Study: Dexa Bone Density Study Date of Exam: 11/26/24 Exam# [id number] Ordering Dr: Connie Ibarra PROCEDURE: DEXA BONE [...] CC: SHEILA Coreas; Dr. Yaw Singh MD Airveyor Operator: Signed Normal [facility] Lumbar Spine 2 or 3 Viewson 11-14-2024 Lumbar Spine 2 or 3 Views [facility] [facility] Services [address] [place] [address] [id number] Lumbar Spine 2 or 3 Views MR#: [id number] Acct: [id number] Name: JACOB LANDA Rep #: [id number] : 1955 M 69 From: Nino porter MD PCP: Dr. Yaw Singh MD Status: DEP AMB Study: Lumbar Spine 2 or 3 Views Date of Exam: Exam# [id number] Ordering Dr: Connie Ibarra PROCEDURE: LUMBAR SPINE [...] L1, L2 and L3 vertebrae. Reading Location: [id number] CC: SHEILA Coreas; Dr. 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 Part of today???s visit was documented by [...] of shamp (more content not included)... Normal [facility] Operative Reporton 5 Operative Report [facility] Medical Records Department [address] [place] [address] Operative Report 10/15/24 1434 MR#: [id number] Acct: [id number] Name: JACOB LANDA Rep #: [id number] : 1955 69 From: Nikita Jackson MD PCP: Dr. Yaw Singh MD Status:[facility] Location: [facility] Operative Report (Standard) Operative Information Date of Procedure: 10/15/24 Pre-Operative Diagnosis: End-stage renal disease currently on dialysis via left upper arm fistula Left IJ tunneled catheter no longer in use Post-Operative Diagnosis: Same Surgery/Procedure Performed: Removal left IJ tunneled catheter photographic lithographer: No Type of Anesthesia: Local and Sedation,Conscious [...] site the patient was taken to the Recruiter Specialist he was positioned prepped and draped in [...] Jackson MD; Dr. 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 Normal [facility] MR Brain WO contraston 09-08 IMPRESSION: 1. [...] can be seen in setting of SIADH. Airveyor Operator: MORGAN Transcribe Date/Time: Sep 08 2024 3:29P Dictated by : RICHARD DEAL MD This examination was interpreted and the report reviewed and electronically signed by: RICHARD DEAL MD on Sep 08 2024 3:43PM [facility] DIVISION OF RADIOLOGY * * *Final Report* * * DATE OF EXAM: Sep 08 2024 3:22PM [facility] 0294 - MRI BRAIN WO IVCON / [...] right maxillary antrum. DIVISION OF RADIOLOGY Provider, [facility] - 09/08/2024 * * *Final Report* * * DATE OF EXAM: Sep 08 2024 3:22PM [facility] 0294 - MRI BRAIN WO IVCON / [...] can be seen in setting of SIADH. Airveyor Operator: MORGAN Transcribe Date/Time: Sep 08 2024 3:29P Dictated by : RICHARD DEAL MD This examination was interpreted and the report reviewed and electronically signed by: RICHARD DEAL MD on Sep 08 2024 3:43PM EST [facility] Radiology Study observation (narrative) [facility] MR Brain WO contrastOrdered By: Ccf Provider on 09-08-2024 [facility] Surgery Visit Reporton 09-[address] [facility] 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 [facility] EMEKA Pineda 2024 [facility] Nabil PADILLA * * *Final Report* * * DATE OF EXAM: Aug 27 2024 10:32AM WRW 4040 - [facility] DIAG Nabil YORK VALERIE / PROCEDURE REASON: multiple diagnoses * * * * Physician Interpretation * * * * RESULT: [place] [address] #[id number] - [facility] EMEKA PADILLA #[id number] - [facility] Cheers BREAST LTD RT HISTORY: 69 year-old patient [...] Renetta Vazquez M.D. Electronically signed on: 08/27/2024 Airveyor Operator: PEDRO Transcribe Date/Time: Aug 27 2024 10:05A Dictated by: RENETTA VAZQUEZ MD This examination was interpreted and the report reviewed and electronically signed by: RENETTA VAZQUEZ MD on Aug 27 2024 11:15AM EST [id number] Normal [facility] US BREAST LTD RTon 08-27 [facility] US BREAST LTD RT * * *Final Report* * * DATE OF EXAM: Aug 27 2024 10:49AM WRU 0594 - [facility] US BREAST LTD RT / PROCEDURE REASON: multiple diagnoses * * * * Physician Interpretation * * * * [place] [address] #[id number] - [facility] EMEKA PADILLA #[id number] - [facility] US BREAST LTD RT HISTORY: 69 year-old [...] Renetta Vazquez M.D. Electronically signed on: 08/27/2024 Airveyor Operator: PEDRO Transcribe Date/Time: Aug 27 2024 10:41A Dictated by : RENETTA VAZQUEZ MD This examination was interpreted and the report reviewed and electronically signed by: RENETTA VAZQUEZ MD on Aug 27 2024 11:15AM EST [id number] Normal [facility] CNOVon 08-20-2024 CNOV Office Visit (UCWSTR ) -- JACOB LANDA ([id number]) 1955 M Date Time Provider Department 08/20/24 8:15 AM STEVE YOUSSEF [facility] During your visit today, we recorded the following information about you: Temperature Pulse Respiration Blood pressure 97.2 degrees 84/minute 16/minute 118/74 Weight 74.3 kg Steve Youssef PA-C 08/20/2024 6:42 PM Signed This note was created using wst.cnter. Subjective Jacob Landa is a 69 year [...] Primary Visi (more content not included)... Normal [facility] XR LUMBAR 3V AP/LAT/L5-S1on 08-20-2024 XR LUMBAR [...] deformity. Recommend further evaluation with cross-sectional imaging. Airveyor Operator: MORGAN Transcribe Date/Time: Aug 20 2024 9:13A Dictated by : GLENNY ASHTON DO This examination was interpreted and the report reviewed and electronically signed by: GLENNY ASHTON DO on Aug 20 2024 9:21AM EST [id number] Normal [facility] XR Lumbar spine 3 Viewson IMPRESSION: Possible new mild L5 superior endplate compression deformity. Recommend further evaluation with cross-sectional imaging. Airveyor Operator: MORGAN Transcribe Date/Time: Aug 20 2024 9:13A [...] deformity. Recommend further evaluation with cross-sectional imaging. Airveyor Operator: PSCB Transcribe Date/Time: Aug 20 2024 9:13A Dictated by : GLENNY ASTHON DO This examination was interpreted and the report reviewed and electronically signed by: GLENNY ASHTON DO on Aug 20 2024 9:21AM EST [facility] Radiology Study observation (narrative) [facility] XR Lumbar spine 3 ViewsOrder ed By: Ccf Provider on 08-20-2024 [facility] CNOVon 08-05-2024 CNOV Office Visit (UCWSTR ) -- JACOB LANDA ([id number]) 1955 M Date Time Provider Department 08/05/24 [...] kidney disease) stage 4, GFR 15-29 ml/min ([facility]) 01/03/2024 On dialysis and seeing Dr. Greenberg. Closed wedge compression fracture of T10 vertebra (HCC) 07/12/2023 Coronary artery disease involving [place] coronary artery without angina pectoris Seeing Dr. [...] 11/17/2020 Personal history of colonic polyps 12/27/2009 Piece Cutter's nodules 03/30/2023 Will try pamelor Pleural effusion [...] COLONOSCOPY W/BIOPSY SINGLE/MULTIPLE 02/22/2007 Diminutive polyp distal [id number] ECHO 01/08/2021 EGD 04/15/2020 HEART CATHETERIZATION 12/2018 [...] TONSILLECTOMY PRIMARY/SECONDARY Tonsillectomy TOT/SUB ESOPHAGECTOMY W/THORACOT 08/09/2020 [place] esophagectomy, jejunostomy tube placement TOTAL HIP REPLACEMENT Left 02/15/2024 ALLERGIES Seasona (more content not included)... Normal [facility] Surgery Visit Reporton 07-[address] [facility] [address] [place] [address]. [address] [place] [address] OFFICE VISIT Date of Service: 07/22/24 MR#: [id number] Acct: [id number] Name: JACOB LANDA Rep #: [id number] : 1955 Provider: SHEILA Becker Age/Sex: 69/M Location: [facility] [place]S Status: Signed Intake Vital [...] Global Post Op Diagnoses AV fistula I77.0 [facility] Medical History Wears glasses Cancer Cancer Pressure [...] Esophageal carcinoma Atherosclerosis of coronary artery of [place] heart without angina pectoris 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 Essential (primary) hypertension Non-rheumatic aortic stenosis Syncope and collapse Hyperlipidemia Atherosclerotic heart disease of [place] coronary artery with other forms of angina [...] never sub (more content not included)... Normal [facility] B-HCG SerPl-aCncon 5 HCG.beta subunit Qn m[IU]/mL Normal <5.0 [facility] Comment on above: Order Comment: Speci men Type: BLOOD SPECIMENOrdering Facility: [facility] Address: [address] [place] [address] Performed By: #### 2 1198-7 ####[facility] LABCLIA [id number] KYLE GUTIERREZ [id number] [place] [address] OF [facility] CNOVon 06-30-2024 CNOV Office Visit (FAMPWS ) -- JACOB LANDA ([id number]) 1955 M Date Time Provider Department 06/30/24 2:00 PM [facility] During your visit today, we recorded [...] Aortic valve stenosis 07/26/2015 Ascending aorta dilation ([facility]) 09/21/2023 09/21/2023: 4.1cm Asthma BPH (benign prostatic hyperplasia) 07/20/2014 Carpal tunnel syndrome of right wrist CKD (chronic kidney disease) stage 4, GFR 15-29 ml/min ([facility]) 01/03/2024 On dialysis and seeing Dr. Greenberg. Closed wedge compression fracture of T10 vertebra ([facility]) 07/12/2023 Coronary artery disease involving [place] coronary artery without angina pectoris Seeing Dr. Noland DDD (degenerative disc disease), lumbar 11/04/2019 Elevated blood sugar 03/11/2024 Esophageal adenocarcinoma ([facility]) 08/09/2020 Essential hypertension, benign GERD (gastroesophageal reflux disease) 07/12/2009 History of kidney stones 07/20/2014 Iron deficiency anemia due to chronic blood loss 05/25/2020 Iron malabsorption 05/25/2020 Kidney stone Kyphosis (acquired) (postural) 07/30/[address] 03/11/2024 DPA: Lacho (step daughter) Malignant neoplasm of lower third of esophagus ([facility]) 04/15/2020 Medicare annual wellness visit, subsequent 01/13/2021 Medical B eligibilty date 03/09/19 Date of last exam 01/13/2021 Mixed hyperlipidemia MRSA (methicillin resistant Staphylococcus aureus) 12/01/2016 treated with course of Linezolid beginning 10/29/16 Nonrheumatic aortic valve disorder On tube feeding diet 08/14/2020 History: 65 year old male s/p [place] esophagectomy, Pyloromyotomy, Jejunostomy tube placement for esophageal adenocarcinoma -Diet: Isosource 1.5 to 50 cc hour with 100 cc water flushes 8 times per day and Bene protein 3 times per day Removed 11/17/2020 Personal history of colonic polyps 12/27/2009 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 Pressure ulcer of unspecified buttock, stage 2 ([facility]) 01/03/2024 Bilaterally. Primary insomnia 03/30/2023 S/P CABG [...] COLONOSCOPY W/BIOPSY SINGLE/MULTIPLE 02/22/2007 Diminutive polyp distal [id number] ECHO 01/08/2021 EGD 04/15/2020 HEART CATHETERIZATION 12/2018 [...] TONSILLECTOMY PRIMARY/SECONDARY Tonsillectomy TOT/SUB ESOPHAGECTOMY W/THORACOT 08/09/2020 [place] esophagectomy, jejunostomy tube plac (more content not included)... Normal [facility] Discharge Instructionon 06-08 Discharge Instruction [facility] Medical Records Department [address] [place] [address] Instructions for Home/Discharge Instructions 06/30/24912 MR#: [id number] Acct: [id number] Name: JACOB LANDA Rep #: [id number] : 1955 69 From: Nikita Jackson MD PCP: Dr. Yaw Singh MD Status:REG [facility] Discharge Instructions Diet Discharge Diet: No restrictions [...] Care Provider: Yaw Singh Instructions Print Language: Nigerien Discharge Orders/Prescriptions Prescriptions: New oxycodone 5 mg [...] CC: Dr. Yaw Singh MD Signed Normal [facility] Estradiol SerPl-mCncon 06-30 E2 [Mass/Vol] 25 pg/mL Normal <38 [facility] Comment on above: Order Comment: Speci men Type: BLOOD SPECIMENOrdering Facility: [facility] Address: [address] [place] [address] Result Comment: This test is not suitable for patients receiving treatment with the drug Fulvestrant (Faslodex). The drug causes an interference leading to falsely elevated estradiol results. Performed By: #### 2 243-4, 89580-1, 33694-1, 2842-3 ####[facility] LABCLIA [id number] [address] [place] FSH SerPl-aCncon 06-30-2024 Follitropin Qn 21.7 m[IU]/mL High 1.5-12.4 [facility] Comment on above: Order Comment: Speci men Type: BLOOD SPECIMENOrdering Facility: [facility] Address: [address] [place] [address] Performed By: #### 2 243-4, 82793-5, 59905-4, 2842-3 ####[facility] LABCLIA [id number] [address] [place] LH SerPl-aCncon 06-30-2024 Lutropin Qn 13.4 m[IU]/mL High 1.8-10.8 [facility] Comment on above: Order Comment: Speci men Type: BLOOD SPECIMENOrdering Facility: [facility] Address: [address] [place] [address] Performed By: #### 2 243-4, 50305-0, 50860-3, 2842-3 ####[facility] LABCLIA [id number] [address] [place] MR/POSTOP.ANEon 06-30-2024 MR/POSTOP.ANE [facility] Medical Records Department [address] [place] [address] Anesthesia Postop Eval I 06/30/24 0933 MR#: [id number] Acct: [id number] Name: JACOB LANDA Rep #: [id number] : 1955 69 From: Antwan Pettit CRNA PCP: Dr. Yaw Singh MD Status:REG SD Y Race: C Location: [place] [address] Anesthesia: Postop Eval I Current Vital Signs [...] completed: Yes 06/30/24934 Date Antwan Pettit [facility]RNA [facility] Signature: Date CC: Signed Normal [facility] MR/VQHMDTCA1zp 06-30-2024 MR/POSTOPAN2 [facility] Medical Records Department [address] [place] [address] Anesthesia Postop Eval II 06/30/24 1015 MR#: [id number] Acct: [id number] Name: JACOB LANDA Rep #: [id number] : 1955 69 From: Tawny Covington PCP: Dr. Yaw Singh MD Status:REG SDC Y Race: C Location: [place] [address] Anesthesia Postop Eval I Sum Postop Eval Completion status Anesthesia document: Postop Eval 1 completed: Yes Anesthesia Postop Eval I Summary Anesthesia Postop Eval I Summary: Anesthesia Postop Eval I: Assessment Summary Airway patent Yes 06/30/24 09:34 CARPET CUTTER.PKEL Spontaneous unlabored Yes 06/30/24 09:34 CARPET CUTTER.PKEL respirations Mental status Awake,Calm 06/30/24 09:34 CARPET CUTTER.PKEL nausea No 06/30/24 09:34 CARPET CUTTER.PKEL Vomiting No 06/30/24 09:34 CARPET CUTTER.PKEL Anesthesia Postop Eval I: Fluid Summary Crystalloid volume administer 250 06/30/24 09:34 CARPET CUTTER.PKEL (ml) Colloids volume administered ( ml) Blood Product volume administered (ml) Total IV fluid infused 250 06/30/24 09:34 CARPET CUTTER.PKEL Anesthesia Postop Eval I: Summary Notes Anesthesia Complication Yes 06/30/24 09:34 CARPET CUTTER.PKEL Anesthesia Complication right nares with 06/30/24 09:34 CARPET CUTTER.PKEL Comment: epistaxis from npa Post-operative progress note Anesthesia: Postop Eval II Evaluation Mental status: Awake Pain Level: 2 nausea: No Vomiting: No 06/30/24 1016 Date Tawny Santos Signature: Date CC: Signed Normal [facility] Operative Reporton Operative Report [facility] Medical Records Department [address] [place] [address] Operative Report 06/30/24917 MR#: [id number] Acct: [id number] Name: JACOB LANDA Rep #: [id number] : 1955 69 From: Nikita Jackson MD PCP: Dr. Yaw Singh MD Status:[facility] Location: [facility] Operative Report (Standard) Operative Information Date of Procedure: 06/30/24 Pre-Operative Diagnosis: ESRD Post-Operative Diagnosis: same Surgery/Procedure Performed: left brach-ceph fistula creation photographic lithographer: Yes Road Repairer: Kristi Vázquez Tasks completed by engineer first assistant: Opening, Closing, Opening closing, Hemostasis: Tie [...] cephalic vein so he presents now for [place] fistula creation. Description of procedure: Upon obtaining [...] MD; Dr. Yaw Singh MD Signed Normal [facility] Prolactin SerPl-mCncon 06-30 Prolactin [Mass/Vol] 72.8 ng/mL High 4.1-25.1 [facility] Comment on above: Order Comment: Speci men Type: BLOOD SPECIMENOrdering Facility: [facility] Address: [address] [place] [address] Result Comment: Prol actin test is performed using the [employer] Electrochemiluminescence Immunoassay method. Results obtained with different methods or kits cannot be used interchangeably. Performed By: #### 2 243-4, 40357-7, 76189-8, 2842-3 ####[facility] LABCLIA [id number] [place] [address] [place] TSH SerPl-aCncon 06-30-2024 TSH Qn 3.100 m[IU]/L Normal 0.270-4.200 [facility] Comment on above: Order Comment: Speci men Type: BLOOD SPECIMENOrdering Facility: [facility] Address: [address] [place] [address] Performed By: #### 2 986-8, 3016-3 ####[facility] LABCLIA [id number] [place] [id number] [place] Testost SerPl-mCncon 06-30- 025 Testosterone [Mass/Vol] 436 ng/dL Normal 193-824 [facility] Comment on above: Order Comment: Speci men Type: BLOOD SPECIMENOrdering Facility: [facility] Address: [facility] [place] [address] Result Comment: A te stosterone level in the 193-320 ng/dL range with associated clinical symptoms is considered low and may indicate hypogonadism (from [facility] 2010 363:123-135). Results >320 ng/dL are considered normal. Performed By: #### 2 986-8, 3016-3 ####[facility] LABCLIA [id number] [place] [id number] [facility] John 06-20-[address] [facility] Telephone (TXCTGL) -- JACOB LANDA ([id number]) 1955 M Date Time Provider Department 06/20/24 H[place] OBRIEN TXCTGL During your visit today, we recorded the following information about you: Hill Obrien LISW 06/20/2024 10:45 AM Signed Call placed to pt to complete the scheduled kidney transplant psychosocial evaluation. No answer. Left message requesting pt return my call. KATHERYN Dye LISW-S, [facility] Transplant Telegraph Editor Allergies As of Date: 06/20/2024 Noted Allergy [...] (FLONASE) 50 mcg/actuation nasal spray Use 1 Byron in each nostril once daily. - ferrous [...] (HCC) [C15.9] 08/09/2020 Coronary artery disease involving [place] crisostomo* On tube feeding diet [Z78.9] 08/14/2020 01/13/2021 AK (actinic keratosis) [L57.0] 09/07/2020 Medicare annual wellness visit, subsequent [Z00*01/13/2021 Pleural effusion [J90] 03/11/2021 Advance directive discussed with patient [Z71.8*02/09/2022 Medication management [Z79.899] 02/09/2022 Prostate disorder [N42.9] 02/09/2022 Decreased sexual desire [F52.0] 02/09/2022 Piece Cutter's nodules [L28.1] 03/30/2023 Primary insomnia [F51.01] 03/30/2023 Closed wedge compression fracture of T10 verteb*07/12/2023 Strain of thoracic paraspinal muscles excluding*07/30/2023 03/11/2024 Kyphosis (acquired) (postural) [M40.00] 07/30/2023 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 Normal [facility] CNCOon 06-13-2024 CNCO Letter Text Normal [facility] ACTIVATED PARTIAL THROMBOPLA STIN TIMEon 06-11-2024 aPTT Coag (PPP) [Time] 31.9 s [facility] ALGN RABBIT EPITHELIUM IGEon 06-11-2024 RABBIT EPITHELIUM CLASS Class 0 Normal Class 0 [facility] Comment on above: Order Comment: Speci men Type: BLOOD SPECIMENOrdering Facility: [facility] Address: [address] [place] [address] Performed By: #### R ABEPI ####[facility] LABCLIA [id number] [place] [address] [place] RABBIT EPITHELIUM IGE <0.35 Normal <0.35 [facility] Comment on above: Order Comment: Speci men Type: BLOOD SPECIMENOrdering Facility: [facility] Address: [address] [place] [address] Performed By: #### R ABEPI ####[facility] LABCLIA [id number] [address] BLOOD TB SCREENon 06-11-2024 M. tuberculosis tuberculin stim IFN-g Ql (Bld) Negative Normal [facility] Comment on above: Order Comment: Speci men Type: BLOOD SPECIMENOrdering Facility: [facility] Address: [address] [place] [address] Performed By: #### I NFTBP ####[facility] LABIA [id number] [place] [address] [place] MITOGEN MINUS NIL >9.98 Normal >=0.50 [facility] Comment on above: Order Comment: Speci men Type: BLOOD SPECIMENOrdering Facility: [facility] Address: [address] [place] [address] Performed By: #### I NFTBP ####[facility] [id number] [address] TB GAMMA INTERPRETATION Infection with M. tuberculosis complex is unlikely. If latent tuberculosis infection is highly suspected, a negative result does not rule out the infection. Specimens from immunocompromised patients and those <5 years of age may show false negative results. In case of a contact investigation, please repeat 8-12 weeks after a known exposure. Normal [facility] Comment on above: Order Comment: Speci men Type: BLOOD SPECIMENOrdering Facility: [facility] Address: [address] [place] [address] Performed By: #### I NFTBP ####[facility] LABIA [id number] [address] TB NIL 0.02 IU/mL Normal <=8.00 [facility] Comment on above: Order Comment: Speci men Type: BLOOD SPECIMENOrdering Facility: [facility] Address: [address] [place] [address] Performed By: #### I NFTBP ####[facility] LABIA [id number] [address] TB1 AG MINUS NIL 0.00 IU/mL Normal <0.35 [facility] Comment on above: Order Comment: Speci men Type: BLOOD SPECIMENOrdering Facility: [facility] Address: [address] [place] [address] Performed By: #### I NFTBP ####[facility] LABCLIA [id number] [address] TB2 AG MINUS NIL 0.00 IU/mL Normal <0.35 [facility] Comment on above: Order Comment: Speci men Type: BLOOD SPECIMENOrdering Facility: [facility] Address: [address] [place] [address] Performed By: #### I NFTBP ####[facility] LABIA [id number] [address] CBC panel Auto (Bld)on 06-11 Erythrocyte distribution width (RBC) [Ratio] 15.6 % High 11.5 - 15.0 % [facility] Hematocrit (Bld) [Volume fraction] 35.7 % Low 39.0 - 51.0 % [facility] Hemoglobin (Bld) [Mass/Vol] 11.3 g/dL Low 13.0 - 17.0 g/dL [facility] Interpretation and review of laboratory results Abnormal [facility] MCH (RBC) [Entitic mass] 29.9 pg 26.0 - 34.0 pg [facility] MCHC (RBC) [Mass/Vol] 31.7 g/dL 30.5 - 36.0 g/dL [facility] MCV (RBC) [Entitic vol] 94.4 fL 80.0 - 100.0 fL [facility] Nucleated RBC (Bld) [#/Vol] NINF [facility] Platelet mean volume (Bld) [Entitic vol] 10 fL 9.0 - 12.7 fL [facility] Platelets (Bld) [#/Vol] 228 10*3/uL [facility] RBC (Bld) [#/Vol] 3.78 10*6/uL Low 4.20 - 6.0 0 m/uL [facility] WBC (Bld) [#/Vol] 9.67 10*3/uL [facility] Erythrocyte distribution width (RBC) [Ratio] 15.6 % High 11.5-15.0 [facility] Comment on above: Order Comment: Speci men Type: BLOOD SPECIMENOrdering Facility: [facility] Address: [address] [place] [address] Performed By: #### 5 8410-2 ####[facility] LABIA [id number] [place] [address] [place] Hematocrit (Bld) [Volume fraction] 35.7 % Low 39.0-51.0 [facility] Comment on above: Order Comment: Speci men Type: BLOOD SPECIMENOrdering Facility: [facility] Address: [address] [place] [address] Performed By: #### 5 8410-2 ####[facility] LABIA [id number] [place] [address] [place] Hemoglobin (Bld) [Mass/Vol] 11.3 g/dL Low 13.0-17.0 [facility] Comment on above: Order Comment: Speci men Type: BLOOD SPECIMENOrdering Facility: [facility] Address: [address] [place] [address] Performed By: #### 5 8410-2 ####[facility] LABIA [id number] [place] [address] [place] MCH (RBC) [Entitic mass] 29.9 pg Normal 26.0-34.0 [facility] Comment on above: Order Comment: Speci men Type: BLOOD SPECIMENOrdering Facility: [facility] Address: [address] [place] [address] Performed By: #### 5 8410-2 ####[facility] LABIA [id number] [place] [address] [place] MCHC (RBC) [Mass/Vol] 31.7 g/dL Normal 30.5-36.0 [facility] Comment on above: Order Comment: Speci men Type: BLOOD SPECIMENOrdering Facility: [facility] Address: [address] [place] [address] Performed By: #### 5 8410-2 ####[facility] LABCLIA [id number] [facility] [place] [address] [place] MCV (RBC) [Entitic vol] 94.4 fL Normal 80.0-100.0 [facility] Comment on above: Order Comment: Speci men Type: BLOOD SPECIMENOrdering Facility: [facility] Address: [address] [place] [address] Performed By: #### 5 8410-2 ####[facility] LABIA [id number] [place] [address] [place] Nucleated RBC (Bld) [#/Vol] 10*3/uL Normal <0.01 [facility] Comment on above: Order Comment: Speci men Type: BLOOD SPECIMENOrdering Facility: [facility] Address: [address] [place] [address] Performed By: #### 5 8410-2 ####[facility] LABIA [id number] [place] [address] [place] Platelet mean volume (Bld) [Entitic vol] 10.0 fL Normal 9.0-12.7 [facility] Comment on above: Order Comment: Speci men Type: BLOOD SPECIMENOrdering Facility: [facility] Address: [address] [place] [address] Performed By: #### 5 8410-2 ####[facility] LABCLIA [id number] [place] [address] [place] Platelets (Bld) [#/Vol] 228 10*3/uL Normal 150-400 [facility] Comment on above: Order Comment: Speci men Type: BLOOD SPECIMENOrdering Facility: [facility] Address: [address] [place] [address] Performed By: #### 5 8410-2 ####[facility] LABCLIA [id number] [place] [address] [place] RBC (Bld) [#/Vol] 3.78 10*6/uL Low 4.20-6.00 [facility] Comment on above: Order Comment: Speci men Type: BLOOD SPECIMENOrdering Facility: [facility] Address: [address] [place] [address] Performed By: #### 5 8410-2 ####[facility] LABIA [id number] [place] [address] [place] WBC (Bld) [#/Vol] 9.67 10*3/uL Normal 3.70-11.00 [facility] Comment on above: Order Comment: Speci men Type: BLOOD SPECIMENOrdering Facility: [facility] Address: [address] [place] [address] Performed By: #### 5 8410-2 ####[facility] LABIA [id number] [place] [address] [place] CMV IgG Qnon 06-11-2024 CMV IGG QUAL Positive Abnormal Negative [facility] Comment on above: Order Comment: Speci men Type: BLOOD SPECIMENOrdering Facility: [facility] Address: [address] [place] [address] Result Comment: The result suggests recent or past infection with Cytomegalovirus (CMV). Positive result may also be seen due to presence of passively-transferred antibodies. Please correlate with patient's history. Performed By: #### M EASLG, 7852-7, VZVG2, 7885-7 ####[facility] LABCLIA [id number] [place] [address] [place] CMV IgG SerPl-aCncon 025 CMV IgG Qn >10.00 Normal [facility] Comment on above: Order Comment: Speci men Type: BLOOD SPECIMENOrdering Facility: [facility] Address: [address] [place] [address] Result Comment: The magnitude of the measured result is not indicative of the amount of antibody present. U/mL values are interpreted as follows: Negative <0.6 Equivocal 0.6 to <0.70 Positive >=0.70 Performed By: #### M EASLG, 7852-7, VZV, 7885-7 ####[facility] LABCLIA [id number] CLEMENTBeba GUTIERREZ [address] CNOVon 06-11-2024 CNOV Office Visit (TXCTGL ) -- JACOB LANDA ([id number]) 1955 M Date Time Provider Department 06/11/24 [...] will be scheduled for you at a [facility] facility: CARDIAC: EKG-Today Cardiac Stress Test-Will schedule after discussion with your motion picture critic CANCER SCREENING: PSA with Evaluation-with labs today ADDITIONAL CONSULTS Cardiology-Will need clearance from your motion picture critic Oncology-Will need clearance from your oncologist Imaging Studies: Nothing further Miscellaneous Items: Labs-Today Outside test results should be faxed to [phone]. Please review the kidney transplant educational materials on line at [email or web address] Sign-in: Kidney To check on your status of your evaluation, please contact your coordinator, Wendy Christian RN [phone]. Ezekiel Shah RN Kidney/Pancreas Pre-Direct Care Staffer [facility] Referring Provider: MARIA VICTORIA SCOTT [[id number]] Allergies As of Date: 06/11/2024 Noted Allergy [...] (FLONASE) 50 mcg/actuation nasal spray Use 1 Byron in each nostril once daily. - ferrous [...] Malignant neopla (more content not included)... Normal [facility] CNOV Office Visit (TXCTGL ) -- JACOB LANDA ([id number]) 1955 M Date Time Provider Department 06/11/24 3:00 PM NEPHROLOGY [facility] TXCTGL During your visit today, we recorded the following information about you: Temperature Pulse Blood pressure Weight 98.5 degrees 93/minute 128/76 73.9 kg Height 1.778 m Grabiel Ruff MD 06/13/2024 11:56 AM Signed [facility] Urologic and Kidney [place] [facility] Transplant Evaluation CC: Consultation for Kidney transplant evaluation. Referred by: Maria Victoria Scott [address] [place], [place] [address] [address] [address] I will communicate with the referring provider [...] 03/28/2024 through a TDC-plan for aVF on Sunday06/16/2024-[place] Patient presents ambulatory with cane. Does patient [...] (HCC) 01/03/2024 On dialysis and seeing Dr. Greneberg. Closed wedge compression fracture of T10 vertebra (HCC) 07/12/2023 Coronary artery disease involving [place] coronary artery without angina pectoris Seeing Dr. [...] old m (more content not included)... Normal [facility] CNOV Office Visit (TXCTGL ) -- JACOB LANDA ([id number]) 1955 M Date Time Provider Department 06/11/24 2:30 PM UROLOGY [place] [facility] TXCT[facility] During your visit today, we recorded the following information about you: Temperature Pulse Blood pressure Weight 98.5 degrees 93/minute 128/76 73.9 kg Height 1.778 m Lacho Pa PA-C 06/13/2024 4:50 PM Signed [facility] Urologic and Kidney [place] [facility] Transplant Evaluation CC: Consultation for Kidney transplant evaluation. Referred by: Maria Victoria Scott [id number] [address] I will communicate with the referring provider [...] and radiation with carboplatin and paclitaxel 05/2020-06/2020 [place] esophagectomy 08/09/2020 Adjuvant nivolumab DDD BPH kidney stones left hip replacement 02/15/2024. Hematology note mentions kidney biopsy in October of 2023 with acute tubular necrosis and acute tubulointerstitial nephritis-results not in CE. Pt initiated on hemodialysis 03/28/2024 through a TDC-plan for aVF on Sunday06/16/2024-[place] Patient presents ambulatory with cane. Does patient [...] Aortic valve stenosis 07/26/2015 Ascending aorta dilation ([facility]) 09/21/2023 09/21/2023: 4.1cm Asthma BPH (benign prostatic hyperplasia) 07/20/2014 Carpal tunnel syndrome of right wrist CKD (chronic kidney disease) stage 4, GFR 15-29 ml/min ([facility]) 01/03/2024 On dialysis and seeing Dr. Greenberg. Closed wedge compression fracture of T10 vertebra ([facility]) 07/12/2023 Coronary artery disease involving [place] coronary artery without angina pectoris Seeing Dr. Noland DDD (degenerative disc disease), lumbar 11/04/2019 Elevated blood sugar 03/11/2024 Esophageal adenocarcinoma ([facility]) 08/09/2020 Essential hypertension, benign GERD (gastroesophageal reflux disease) 07/12/2009 History of kidney stones 07/20/2014 Iron deficiency anemia due to chronic blood loss 05/25/2020 Iron malabsorption 05/25/2020 Kidney stone Kyphosis (acquired) (postural) 07/30/[address] 03/11/2024 DPA: Lacho (step daughter) Malignant neoplasm of lower third of esophagus ([facility]) 04/15/2020 Medicare annual wellness visit, subsequent 01/13/2021 Medical B eligibilty date 03/09/19 Date of last exam 01/13/2021 Mixed hyperlipidemia MRSA (methicillin resistant Staphylococcus aureus) 12/01/2016 treated with course of Linezolid beginning 10/29/16 Nonrheumatic aortic valve disorder On tube feeding diet 08/14/2020 History: 65 year old male s/p [place] esophagectomy, Pyloromyotomy, Jejunostomy tube placement for esophageal adenocarcinoma -Diet: Isosource 1.5 to 50 cc hour with 100 cc water flushes 8 times per day and Bene protein 3 times per day Removed 11/17/2020 Personal history of colonic polyps 12/27/2009 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 Pressure ulcer of unspecified buttock, stage 2 (HCC) 01/03/2024 Bilaterally. 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 4 07/23/2017 S/P TAVR (transc (more content not included)... Normal [facility] CNOV Office Visit (TXCTGL ) -- JACOB LANDA ([id number]) 1955 M Date Time Provider Department 06/11/24 2:00 PM KIDNEY TXP COORDINATORS TXCTGL During your visit today, we recorded the following information about you: Referring Provider: MARIA VICTORIA SCOTT [[id number]] Allergies As of Date: 06/11/2024 Noted Allergy [...] (FLONASE) 50 mcg/actuation nasal spray Use 1 Byron in each nostril once daily. - ferrous [...] (HCC) [C15.9] 08/09/2020 Coronary artery disease involving [place] crisostomo* On tube feeding diet [Z78.9] 08/14/2020 01/13/2021 AK (actinic keratosis) [L57.0] 09/07/2020 Medicare annual wellness visit, subsequent [Z00*01/13/2021 Pleural effusion [J90] 03/11/2021 Advance directive discussed with patient [Z71.8*02/09/2022 Medication management [Z79.899] 02/09/2022 Prostate disorder [N42.9] 02/09/2022 Decreased sexual desire [F52.0] 02/09/2022 Piece Cutter's nodules [L28.1] 03/30/2023 Primary insomnia [F51.01] 03/30/2023 [...] (transcatheter a (more content not included)... Normal [facility] CNOV Office Visit (TXCTGL ) -- JACOB LANDA ([id number]) 1955 M Date Time Provider Department 06/11/24 [...] [facility]; a copy of the program [...] about Kidney Allocation Policy -Directions to access [facility]'s data through the [facility] website. -Informed Consent for Transplant Program Participation patient education packet -National Kidney Registry pamphlet -Covid-19 Vaccination for Transplant Candidates Method of Instruction: Group class instruction Written instruction/Handouts Verbal instruction Patient/Family Response: Patient asked appropriate questions, which were answered satisfactorily. Follow-Up Plan: Complete - No need for follow-up Referral/Recommendation: None Rober Iglesias RN Pre-Direct Care Staffer Referring Provider: MAULIK ARANDA [[id number]] Allergies As of Date: 06/11/2024 Noted Allergy [...] (FLONASE) 50 mcg/actuation nasal spray Use 1 Byron in each nostril once daily. - ferrous [...] of b (more content not included)... Normal [facility] Comprehensive metabolic 2000 panelon 06-11-2024 Albumin [Mass/Vol] 4.0 g/dL Normal 3.9-4.9 [facility] Comment on above: Order Comment: Speci men Type: BLOOD SPECIMENOrdering Facility: [facility] Address: [address] [place] [address] Performed By: #### 2 4323-8, 2777-1, 71048-3 ####[facility] LABCLIA [id number] [place] [address] [place] ALP [Catalytic activity/Vol] 119 U/L High 38-113 [facility] Comment on above: Order Comment: Speci men Type: BLOOD SPECIMENOrdering Facility: [facility] Address: [address] [place] [address] Performed By: #### 2 4323-8, 2777-1, 59181-3 ####[facility] LABCLIA [id number] [address] [address] [place] ALT [Catalytic activity/Vol] 17 U/L Normal 10-54 [facility] Comment on above: Order Comment: Speci men Type: BLOOD SPECIMENOrdering Facility: [facility] Address: [address] [place] [address] Performed By: #### 2 4323-8, 2777-1, 22780-0 ####[facility] LABCLIA [id number] [place] [id number] [place] Anion gap [Moles/Vol] 14 mmol/L Normal 8-15 [facility] Comment on above: Order Comment: Speci men Type: BLOOD SPECIMENOrdering Facility: [facility] Address: [address] [place] [address] Performed By: #### 2 4323-8, 277-, 98694-9 ####[facility] LABCLIA [id number] [place] [id number] [place] AST [Catalytic activity/Vol] 18 U/L Normal 14-40 [facility] Comment on above: Order Comment: Speci men Type: BLOOD SPECIMENOrdering Facility: [facility] Address: [address] [place] [address] Performed By: #### 2 4323-8, 277-1, 35578-7 ####[facility] LABCLIA [id number] [address] [address] [place] Bilirubin [Mass/Vol] 0.6 mg/dL Normal 0.2-1.3 [facility] Comment on above: Order Comment: Speci men Type: BLOOD SPECIMENOrdering Facility: [facility] Address: [address] [place] [address] Performed By: #### 2 4323-8, 2777-1, 64968-3 ####[facility] LABCLIA [id number] [address] [address] [place] Calcium [Mass/Vol] 9.5 mg/dL Normal 8.5-10.2 [facility] Comment on above: Order Comment: Speci men Type: BLOOD SPECIMENOrdering Facility: [facility] Address: [address] [place] [address] Performed By: #### 2 4323-8, 2777-1, 35489-4 ####[facility] LABCLIA [id number] [address] [address] [place] Chloride [Moles/Vol] 97 mmol/L Low 98-107 [facility] Comment on above: Order Comment: Speci men Type: BLOOD SPECIMENOrdering Facility: [facility] Address: [address] [place] [address] Performed By: #### 2 4323-8, 2777-1, 25884-4 ####[facility] LABCLIA [id number] [place] [id number] [place] CO2 [Moles/Vol] 28 mmol/L Normal 22-30 [facility] Comment on above: Order Comment: Speci men Type: BLOOD SPECIMENOrdering Facility: [facility] Address: [address] [place] [address] Performed By: #### 2 4323-8, 2777-1, 46830-3 ####[facility] LABCLIA [id number] [address] [address] [place] Creatinine [Mass/Vol] 3.22 mg/dL High 0.73-1.22 [facility] Comment on above: Order Comment: Speci men Type: BLOOD SPECIMENOrdering Facility: [facility] Address: [address] [place] [address] Performed By: #### 2 4323-8, 2777-1, 70042-2 ####[facility] LABCLIA [id number] [address] [address] [place] Creatinine and Glomerular filtration rate.predicted panel (S/P/Bld) 20 mL/min/1.73m??? Low >=60 [facility] Comment on above: Order Comment: Ehsan nunes Type: BLOOD SPECIMENOrdering Facility: [facility] Address: [address] [place] [address] Result Comment: Aurora mated Glomerular Filtration Rate [...] GFR. Performed By: #### 2 4323-8, 2777-1, 41768-0 ####[facility] LABCLIA [id number] [place] [id number] [place] Glucose [Mass/Vol] 84 mg/dL Normal 74-99 [facility] Comment on above: Order Comment: Ehsan nunes Type: BLOOD SPECIMENOrdering Facility: [facility] Address: [address] [place] [address] Result Comment: The [place] Diabetes Association (ADA) provides guidance for cutoff [...] Standards of Medical Care in Diabetes 2016, [place] [employer] Association. Diabetes Care. 2016.39(Suppl 1). Performed By: #### 2 4323-8, 2777-1, 19515-1 ####[facility] LABCLIA [id number] [place] [id number] [place] Potassium [Moles/Vol] 3.9 mmol/L Normal 3.7-5.1 [facility] Comment on above: Order Comment: Speci men Type: BLOOD SPECIMENOrdering Facility: [facility] Address: [address] [place] [address] Performed By: #### 2 4323-8, 2777-1, 36507-7 ####[facility] LABCLIA [id number] [address] [address] [place] Protein [Mass/Vol] 8.1 g/dL High 6.3-8.0 [facility] Comment on above: Order Comment: Speci men Type: BLOOD SPECIMENOrdering Facility: [facility] Address: [address] [place] [address] Performed By: #### 2 4323-8, 7-1, 43672-1 ####[facility] LABCLIA [id number] [address] [address] [place] Sodium [Moles/Vol] 139 mmol/L Normal 136-144 [facility] Comment on above: Order Comment: Speci men Type: BLOOD SPECIMENOrdering Facility: [facility] Address: [address] [place] [address] Performed By: #### 2 4323-8, 7-1, 47420-4 ####[facility] LABCLIA [id number] [address] [address] [place] Urea nitrogen [Mass/Vol] 32 mg/dL High 9-24 [facility] Comment on above: Order Comment: Speci men Type: BLOOD SPECIMENOrdering Facility: [facility] Address: [address] [place] [address] Performed By: #### 2 4323-8, 7-1, 30965-0 ####[facility] LABCLIA [id number] [address] [place] [address] [place] EBV capsid IgG Qn (S)on EBV VCA IGG, QUAL Positive Abnormal Negative [facility] Comment on above: Order Comment: Speci men Type: BLOOD SPECIMENOrdering Facility: [facility] Address: [address] [place] [address] Result Comment: The result suggests recent or past EBV infection. The final interpretation should be done in the context of other EBV serology panel results. Performed By: #### M EASLG, 7852-7, VZVG2, 7885-7 ####[facility] LABCLIA [id number] [address] [place] ECG COMPLETEon 06-11-2024 ECG COMPLETE Ventricular Rate : 8 2 BPM Atrial Rate : 82 BPM P-R Interval : 134 ms QRS Duration : 94 ms Q-T Interval : 386 ms QTC Calculation(Bazett) : 450 ms Calculated P [place] : 7 degrees Calculated R [place] : 22 degrees Calculated T [place] : 35 degrees SINUS RHYTHM WITH OCCASIONAL PREMATURE VENTRICULAR COMPLEXES NONSPECIFIC T WAVE ABNORMALITY ABNORMAL ECG Confirmed by DAYANA HANCOCK MD ([id number]) on 06/28/2024 6:10:15 PM NAME : JACOB LANDA PID : [id number] : 1955 Gender : Male Race : ORD : [id number] Procedure Date : Jun 11 2024 15:54:10 Edit Date : Jun 28 2024 18:10:19 Diagnosis: SINUS RHYTHM WITH OCCASIONAL PREMATURE VENTRICULAR COMPLEXES NONSPECIFIC T WAVE ABNORMALITY ABNORMAL ECG Confirmed by DAYANA HANCOCK MD ([id number]) on 06/28/2024 6:10:15 PM Test Reason : Location : 314 : [facility] Overread By : DAYANA HANCOCK MD Edited By : DAYANA HANCOCK MD Referred By : GRABIEL RUFF Acquired by : FAIZAN BARROSO Normal [facility] Free PSA [Mass/Vol]on 2024 Free PSA/Total PSA [Mass fraction] 39 % Normal [facility] Comment on above: Order Comment: Speci men Type: BLOOD SPECIMENOrdering Facility: [facility] Address: [address] [place] [address] Result Comment: Tota l and free PSA test methodology used is the Electrochemiluminescence Immunoassay by [employer]. Total or free PSA values by differing [...] 15.8% Performed By: #### 2 4323-8, 2777-1, 32894-2 ####[facility] LABCLIA [id number] [address] [address] [place] Prostate specific Ag [Mass/Vol] 1.60 ng/mL Normal <2.60 [facility] Comment on above: Order Comment: Speci men Type: BLOOD SPECIMENOrdering Facility: [facility] Address: [address] [place] [address] Result Comment: Tota l PSA test methodology used is the Electrochemiluminescence Immunoassay by [employer]. Total PSA values by differing methodologies cannot be interchanged. Performed By: #### 2 4323-8, 2777-1, 80688-0 ####[facility] LABCLIA [id number] [address] [address] [place] HBV core Ab Ser Qlon 025 HBV core Ab Ql (S) Negative Normal Negative [facility] Comment on above: Order Comment: Speci men Type: BLOOD SPECIMENOrdering Facility: [facility] Address: [address] [place] [address] Result Comment: No e vidence of current or past infection with Hepatitis B virus. Should recent infection be suspected, repeat testing may be considered 3-4 weeks after this draw. Performed By: #### 5 195-3, 20497-7, 64049-8, 37990-5 ####[facility] LABCLIA [id number] [place] [id number] [place] HBV surface Ab Ql (S)on HBV surface Ab Qn (S) <8.00 Normal [facility] Comment on above: Order Comment: Speci men Type: BLOOD SPECIMENOrdering Facility: [facility] Address: [address] [place] [address] Result Comment: <8 m IU/mL: No serological evidence of immunity to Hepatitis B Virus. >/= 8 to <12 mIU/mL: No serological evidence of immunity to Hepatitis B Virus. >/= 12 mIU/mL: Consistent with serological evidence of immunity to Hepatitis B Virus. Performed By: #### 5 195-3, 79002-8, 29777-2, 84596-5 ####[facility] LABCLIA [id number] [address] [place] HBV surface Ab Ser Qlon HBV surface Ab Ql (S) Negative Normal [facility] Comment on above: Order Comment: Speci men Type: BLOOD SPECIMENOrdering Facility: [facility] Address: [address] [place] [address] Result Comment: No s erological evidence of immunity to Hepatitis B Virus. Performed By: #### 5 195-3, 08350-6, 69664-0, 57785-0 ####[facility] LABCLIA [id number] [place] [address] [place] HBV surface Ag Ser Qlon HBV surface Ag Ql (S) Negative Normal Negative [facility] Comment on above: Order Comment: Speci men Type: BLOOD SPECIMENOrdering Facility: [facility] Address: [address] [place] [address] Performed By: #### 5 195-3, 08831-6, 45945-1, 76027-6 ####[facility] LABCLIA [id number] [place] [address] [place] HCV Ab Ser Qlon 06-11-2024 HCV Ab Ql (S) Negative Normal Negative [facility] Comment on above: Order Comment: Speci men Type: BLOOD SPECIMENOrdering Facility: [facility] Address: [address] [place] [address] Result Comment: The result suggests no evidence of active infection with Hepatitis C virus. Should recent infection be suspected, repeat testing may be considered 4-6 weeks after this draw. Performed By: #### 1 6128-1 ####[facility] LABCLIA [id number] [place] [address] [place] HEPATITIS A ANTIBODY, IGGon 06-11-2024 HAV IgG Ql (S) Negative Normal [facility] Comment on above: Order Comment: Speci men Type: BLOOD SPECIMENOrdering Facility: [facility] Address: [address] [place] [address] Result Comment: No s erological evidence of immunity to Hepatitis A Virus. Performed By: #### A HAVG, 39407-7 ####[facility] LABCLIA [id number] [place] [address] [place] HIV 1+2 Ab IA Qlon HIV 1 and 2 Ab IA.rapid Nom (S/P/Bld) Normal [facility] Comment on above: Order Comment: Speci men Type: BLOOD SPECIMENOrdering Facility: [facility] Address: [address] [place] [address] Result Comment: Test not indicated. Performed By: #### 5 195-3, 99862-9, 49957-1, 74630-1 ####[facility] LABCLIA [id number] [place] [address] [place] HIV 1+2 Ab+HIV1 p24 Ag IA Ql Non-Reactive Normal Nonreactive [facility] Comment on above: Order Comment: Speci men Type: BLOOD SPECIMENOrdering Facility: [facility] Address: [address] [place] [address] Performed By: #### 5 195-3, 99181-5, 40496-6, 83429-0 ####[facility] LABCLIA [id number] [place] [facility] HIV immunoassay testing algorithm interpretation (S/P/Bld) [Interp] Normal [facility] Comment on above: Order Comment: Speci men Type: BLOOD SPECIMENOrdering Facility: [facility] Address: [address] [place] [address] Result Comment: No e vidence of HIV-1 or HIV-2 infection. Should recent infection be suspected, repeat testing may be considered 2-3 weeks after this draw. [place] Rev. Code 3701.243(E): This information has been [...] or diagnoses. Performed By: #### 5 195-3, 32734-7, 93891-8, 76091-4 ####[facility] LABCLIA [id number] [place] [address] [place] KID K/P PANC REC INIT W/Uon 06-11-2024 ALLOGEN RESULTS TO FOLLOW See Allogen report to follow Normal [facility] Comment on above: Order Comment: Speci men Type: BLOOD SPECIMENOrdering Facility: [facility] Address: [address] [place] [address] Performed By: #### K PRIPW ####[facility] LABORATORIESCLIA [id number] [address] [place] No Panel Informationon 06-11 Interpretation and review of laboratory results Normal [facility] PT panel Coag (PPP)on 2024 INR Coag (PPP) [Relative time] 1.2 {INR} 0.9 - 1.3 [facility] Comment on above: Vitamin K Antagonist (VKA) Therapeutic Range: INR 2 to 3 (Target INR of 2.5) Note: For patients treated with VKA drugs, such as warfarin, the [place] 2012 Guideline recommends [...] Chest 2012, 141:7S-47S Rose SULLIVAN et mar. [facility] 2017, 70: 252-289 PT Coag (PPP) [Time] 12.6 s [facility] INR Coag (PPP) [Relative time] 1.2 {INR} Normal 0.9-1.3 [facility] Comment on above: Order Comment: Speci men Type: BLOOD SPECIMENOrdering Facility: [facility] Address: [address] [place] [address] Result Comment: Saadia min K Antagonist (VKA) Therapeutic Range: INR 2 to 3 (Target INR of 2.5) Note: For patients treated with VKA drugs, such as warfarin, the [place] 2012 Guideline recommends [...] Chest 2012, 141:7S-47S Rose SULLIVAN et al. [facility] 2017, 70: 252-289 Performed By: #### 3 4528-0, 86998-2 ####[facility] LABCLIA [id number] [address] [place] PT Coag (PPP) [Time] 12.6 s Normal 9.7-13.0 [facility] Comment on above: Order Comment: Speci men Type: BLOOD SPECIMENOrdering Facility: [facility] Address: [address] [place] [address] Performed By: #### 3 4528-0, 20110-9 ####[facility] LABIA [id number] [address] [place] PTH-Intact SerPl-mCncon 03-0 Parathyrin.intact [Mass/Vol] 124 pg/mL High 15-65 [facility] Comment on above: Order Comment: Speci men Type: BLOOD SPECIMENOrdering Facility: [facility] Address: [address] [place] [address] Performed By: #### 2 731-8 ####[facility] LABIA [id number] [address] [place] Phosphate SerPl-mCncon 06-11 Phosphate [Mass/Vol] 3.9 mg/dL Normal 2.7-4.8 [facility] Comment on above: Order Comment: Speci men Type: BLOOD SPECIMENOrdering Facility: [facility] Address: [address] [place] [address] Performed By: #### 2 4323-8, 2777-1, 19132-9 ####[facility] [id number] [address] [place] RUBEOLA (MEASLES)IGGon 06-11 MEASLES IGG AB, QUAL Positive Normal Positive [facility] Comment on above: Order Comment: Speci men Type: BLOOD SPECIMENOrdering Facility: [facility] Address: [address] [place] [address] Result Comment: The result suggests recent or past exposure to Measles virus or Measles vaccination. The current test does not detect neutralizing antibodies. Positive result may also be seen due to presence of passively-transferred antibodies. Please correlate with patient's history. Performed By: #### M EASLG, 7852-7, VZVG2, 7885-7 ####[facility] LABCLIA [id number] [place] [address] [place] Reagin and Treponema pallidu m IgG and IgM [Interp]on 06-11-2024 T. pallidum IgG+IgM IA Ql (S) Non-Reactive Normal Nonreactive [facility] Comment on above: Order Comment: Speci men Type: BLOOD SPECIMENOrdering Facility: [facility] Address: [address] [place] [address] Performed By: #### A HARDYG, 77532-5 ####[facility] LABCLIA [id number] [place] [address] [place] Reagin+T pallidum IgG+IgM Se rPl-Impon 06-11-2024 Reagin and Treponema pallidum IgG and IgM [Interp] Cannot exclude recent Treponemal infection if specimen collected within 7-10 days after appearance of suspect lesions or 2-3 weeks after an exposure. Clinical correlation is required. Normal [facility] Comment on above: Order Comment: Ehsan nunes Type: BLOOD SPECIMENOrdering Facility: [facility] Address: [address] [place] [address] Performed By: #### A HARDYG, 67721-7 ####[facility] LABCLIA [id number] [place] [address] [place] STRONGYLOIDES IGG BLon 06-11 STRONGYLOIDES IGG QUALITATIVE Negative Normal Negative [facility] Comment on above: Order Comment: Meghani men Type: BLOOD SPECIMENOrdering Facility: [facility] Address: [address] [place] [address] Performed By: #### S TRSER ####[facility] LABCLIA [id number] [place] [id number] [place] TRANSPLANT CONFIRM ABO/RHon 06-11-2024 ABO A Normal [facility] Comment on above: Order Comment: Speci men Type: BLOOD SPECIMENOrdering Facility: [facility] Address: [address] [place] [address] Performed By: #### T RCABO ####[facility] MAIN BLOOD BANKCLIA [id number] [place] [id number] [place] Rh Nom (Bld) Positive Normal [facility] Comment on above: Order Comment: Speci men Type: BLOOD SPECIMENOrdering Facility: [facility] Address: [address] [place] [address] Performed By: #### T RCABO ####[facility] MA[facility] BLOOD BANKCLIA [id number] [place] [address] [place] TYPE + SCREENon 06-11-2024 ABO A Normal [facility] Comment on above: Order Comment: Speci men Type: BLOOD SPECIMENOrdering Facility: [facility] Address: [address] [place] [address] Performed By: #### T SCR ####[facility] MA[facility] BLOOD BANKCLIA [id number] [place] [address] [place] Rh Nom (Bld) Positive Normal [facility] Comment on above: Order Comment: Speci men Type: BLOOD SPECIMENOrdering Facility: [facility] Address: [address] [place] [address] Performed By: #### T SCR ####[facility] MAIN BLOOD BANKCLIA [id number] [place] [address] [place] TYPE AND SCREEN EXPIRATION 06/14/2024 23:59 Normal [facility] Comment on above: Order Comment: Speci men Type: BLOOD SPECIMENOrdering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 SPECIMENOrdering Facility: [facility] Address: [address] [place] [address] Performed By: #### 5 7021-8, 75314-3 ####[facility] BLANCAROANOKE RAPIDSAMANDAA [id number] [place] [address] [place] Lymphocytes/100 WBC (Bld) 11.4 % Normal [facility] Comment on above: Order Comment: Speci men Type: BLOOD SPECIMENOrdering Facility: [facility] Address: [address] [place] [address] Performed By: #### 5 7021-8, 37793-6 ####[facility] [id number] [place] [address] [place] MCH (RBC) [Entitic mass] 28.7 pg Normal 26.0-34.0 [facility] Comment on above: Order Comment: Speci men Type: BLOOD SPECIMENOrdering Facility: [facility] Address: [address] [place] [address] Performed By: #### 5 7021-8, 22510-9 ####[facility] FLORIDAGERSON [id number] [place] [address] [place] MCHC (RBC) [Mass/Vol] 31.5 g/dL Normal 30.5-36.0 [facility] Comment on above: Order Comment: Speci men Type: BLOOD SPECIMENOrdering Facility: [facility] Address: [address] [place] [address] Performed By: #### 5 7021-8, 96134-0 ####[facility]AGIANAACAD[facility] [id number] [place] [address] [place] MCV (RBC) [Entitic vol] 91.2 fL Normal 80.0-100.0 [facility] Comment on above: Order Comment: Speci men Type: BLOOD SPECIMENOrdering Facility: [facility] Address: [address] [place] [address] Performed By: #### 5 7021-8, 52219-6 ####[facility] HOSPITALA [id number] [place] [address] [place] Monocytes (Bld) [#/Vol] 0.48 10*3/uL Normal <0.87 [facility] Comment on above: Order Comment: Speci men Type: BLOOD SPECIMENOrdering Facility: [facility] Address: [address] [place] [address] Performed By: #### 5 7021-8, 87982-8 ####[facility] FLORIDANCLIA [id number] [place] [address] [place] Monocytes/100 WBC (Bld) 7.8 % Normal [facility] Comment on above: Order Comment: Speci men Type: BLOOD SPECIMENOrdering Facility: [facility] Address: [address] [place] [address] Performed By: #### 5 7021-8, 24976-8 ####[facility] MILLTOWNCLIA [id number] [place] [address] [place] Neutrophils (Bld) [#/Vol] 4.70 10*3/uL Normal 1.45-7.50 [facility] Comment on above: Order Comment: Speci men Type: BLOOD SPECIMENOrdering Facility: [facility] Address: [address] [place] [address] Performed By: #### 5 7021-8, 51071-5 ####[facility] HOSPITALWNCLIA [id number] [place] [address] [place] Neutrophils/100 WBC (Bld) 76.4 % Normal [facility] Comment on above: Order Comment: Speci men Type: BLOOD SPECIMENOrdering Facility: [facility] Address: [address] [place] [address] Performed By: #### 5 7021-8, 23796-8 ####[facility] HOSPITALLIA [id number] [place] [address] [place] Nucleated RBC (Bld) [#/Vol] 10*3/uL Normal <0.01 [facility] Comment on above: Order Comment: Speci men Type: BLOOD SPECIMENOrdering Facility: [facility] Address: [address] [place] [address] Performed By: #### 5 7021-8, 44765-4 ####[facility] MILLTOWNCLIA [id number] [place] [address] [place] Nucleated RBC/100 WBC (Bld) [Ratio] 0.0 /100 WBC Normal [facility] Comment on above: Order Comment: Speci men Type: BLOOD SPECIMENOrdering Facility: [facility] Address: [address] [place] [address] Performed By: #### 5 7021-8, 13784-3 ####[facility] MILLWNCLIA [id number] [place] [address] [place] Platelet mean volume (Bld) [Entitic vol] 9.6 fL Normal 9.0-12.7 [facility] Comment on above: Order Comment: Speci men Type: BLOOD SPECIMENOrdering Facility: [facility] Address: [address] [place] [address] Performed By: #### 5 7021-8, 45945-0 ####[facility] BLANCAROANOKE RAPIDSAMANDAA [id number] [place] [address] [place] Platelets (Bld) [#/Vol] 185 10*3/uL Normal 150-400 [facility] Comment on above: Order Comment: Speci men Type: BLOOD SPECIMENOrdering Facility: [facility] Address: [address] [place] [address] Performed By: #### 5 7021-8, 21811-6 ####[facility] [id number] [place] [address] [place] RBC (Bld) [#/Vol] 4.98 10*6/uL Normal 4.20-6.00 [facility] Comment on above: Order Comment: Speci men Type: BLOOD SPECIMENOrdering Facility: [facility] Address: [address] [place] [address] Performed By: #### 5 7021-8, 35701-6 ####[facility] BLANCAROANOKE RAPIDSGIANALIA [id number] [place] [address] [place] WBC (Bld) [#/Vol] 6.16 10*3/uL Normal 3.70-11.00 [facility] Comment on above: Order Comment: Speci men Type: BLOOD SPECIMENOrdering Facility: [facility] Address: [address] [place] [address] Performed By: #### 5 7021-8, 97192-7 ####[facility] BLANCAROANOKE RAPIDSNCLIA [id number] [place] [address] [place] COPPER BLOODon 04-17-2024 Copper [Mass/Vol] 124 ug/dL Normal 70-140 [facility] Comment on above: Order Comment: Speci men Type: BLOOD SPECIMENOrdering Facility: [facility] Address: [address] [place] [address] Result Comment: This test was developed, and its performance characteristics determined by the [facility] Department of Pathology and Laboratory Medicine. It has not been cleared or approved by the FDA. The [facility] Department of Pathology and Laboratory Medicine is regulated under CLIA as qualified to perform high-complexity testing. This test is used for clinical purposes. It should not be regarded as investigational or for research. Performed By: #### C OPPER ####[facility] LABCLIA [id number] [place] [address] [place] ABD/PEL WO IVCONon 2024 CT ABD/PEL WO IVCON * * *Final Report* * * DATE OF EXAM: Apr 17 2024 2:21PM [facility] 0531 - CT ABD/PEL WO IVCON / [...] or metastasis in the abdomen and pelvis. Airveyor Operator: MORGAN Transcribe Date/Time: Apr 19 2024 7:52P Dictated by : TONNY SAINI MD This examination was interpreted and the report reviewed and electronically signed by: TONNY SAINI MD on Apr 19 2024 7:58PM EST [id number] Normal [facility] CT CHEST WO IVCONon 04-17-19 CT CHEST WO IVCON * * *Final Report* * * DATE OF EXAM: Apr 17 2024 2:21PM [facility] 0541 - CT CHEST WO IVCON / [...] pathological compression fracture with superior endplate defects. Airveyor Operator: PSCB Transcribe Date/Time: Apr 19 2024 7:33P Dictated by : TONNY SAINI MD This examination was interpreted and the report reviewed and electronically signed by: TONNY SAINI MD on Apr 19 2024 7:52PM EST [id number] Normal [facility] Comprehensive metabolic 2000 panelon 04-17-2024 Albumin [Mass/Vol] 3.9 g/dL Normal 3.9-4.9 [facility] Comment on above: Order Comment: Ehsan nunes Type: BLOOD SPECIMENOrdering Facility: [facility] Address: [address] [place] [address] Performed By: #### 1 9123-9, 66441-2 ####[facility] [id number] [place] [id number] [place] ALP [Catalytic activity/Vol] 116 U/L High 38-113 [facility] Comment on above: Order Comment: Ehsan nunes Type: BLOOD SPECIMENOrdering Facility: [facility] Address: [address] [place] [address] Performed By: #### 1 9123-9, 72151-3 ####[facility] ANETTE CARILIA [id number] [place] [address] [place] ALT [Catalytic activity/Vol] 35 U/L Normal 10-54 [facility] Comment on above: Order Comment: Speci men Type: BLOOD SPECIMENOrdering Facility: [facility] Address: [address] [place] [address] Performed By: #### 1 9123-9, 70110-6 ####[facility] DAMIONA [id number] [place] [address] [place] Anion gap [Moles/Vol] 11 mmol/L Normal 8-15 [facility] Comment on above: Order Comment: Speci men Type: BLOOD SPECIMENOrdering Facility: [facility] Address: [address] [place] [address] Performed By: #### 1 9123-9, 62561-5 ####[facility] BLANCAROANOKE RAPIDSGIANALIA [id number] [place] [address] [place] AST [Catalytic activity/Vol] 27 U/L Normal 14-40 [facility] Comment on above: Order Comment: Speci men Type: BLOOD SPECIMENOrdering Facility: [facility] Address: [address] [place] [address] Performed By: #### 1 9123-9, 17703-2 ####[facility] BLANCANabilNCLIA [id number] [place] [address] [place] Bilirubin [Mass/Vol] 0.5 mg/dL Normal 0.2-1.3 [facility] Comment on above: Order Comment: Speci men Type: BLOOD SPECIMENOrdering Facility: [facility] Address: [address] [place] [address] Performed By: #### 1 9123-9, 42659-1 ####[facility] AN[facility]TE MILLTOWNCLIA [id number] [place] [address] [place] Calcium [Mass/Vol] 8.4 mg/dL Low 8.5-10.2 [facility] Comment on above: Order Comment: Speci men Type: BLOOD SPECIMENOrdering Facility: [facility] Address: [address] [place] [address] Performed By: #### 1 9123-9, ####[facility] MILLTOWNCLIA [id number] [place] [address] [place] Chloride [Moles/Vol] 93 mmol/L Low 98-107 [facility] Comment on above: Order Comment: Speci men Type: BLOOD SPECIMENOrdering Facility: [facility] Address: [address] [place] [address] Performed By: #### 1 9123-9, ####[facility] HOSPITALLIA [id number] [place] [address] [place] CO2 [Moles/Vol] 30 mmol/L Normal 22-30 [facility] Comment on above: Order Comment: Speci men Type: BLOOD SPECIMENOrdering Facility: [facility] Address: [address] [place] [address] Performed By: #### 1 9123-9, ####[facility] MILLTOWNCLIA [id number] [place] [address] [place] Creatinine [Mass/Vol] 2.25 mg/dL High 0.73-1.22 [facility] Comment on above: Order Comment: Speci men Type: BLOOD SPECIMENOrdering Facility: [facility] Address: [address] [place] [address] Performed By: #### 1 9123-9, 45973-5 ####[facility] MILLROANOKE RAPIDSGIANALIA [id number] [place] [address] [place] Creatinine and Glomerular filtration rate.predicted panel (S/P/Bld) 31 mL/min/1.73m??? Low >=60 [facility] Comment on above: Order Comment: Ehsan nunes Type: BLOOD SPECIMENOrdering Facility: [facility] Address: [address] [place] [address] Result Comment: Aurora mated Glomerular Filtration Rate [...] actual GFR. Performed By: #### 1 9123-9, 78476-0 ####[facility] [id number] [place] [address] [place] Glucose [Mass/Vol] 104 mg/dL High 74-99 [facility] Comment on above: Order Comment: Ehsan nunes Type: BLOOD SPECIMENOrdering Facility: [facility] Address: [address] [place] [address] Result Comment: The [place] Diabetes Association (ADA) provides guidance for cutoff [...] Standards of Medical Care in Diabetes 2016, [place] Diabetes Association. Diabetes Care. 2016.39(Suppl 1). Performed By: #### 1 9123-9, 82592-3 ####[facility] [id number] [place] [address] [place] Potassium [Moles/Vol] 3.5 mmol/L Low 3.7-5.1 [facility] Comment on above: Order Comment: Speci men Type: BLOOD SPECIMENOrdering Facility: [facility] Address: [address] [place] [address] Performed By: #### 1 9123-9, 05654-1 ####[facility]OSPITALMEENU [id number] [place] [address] [place] Protein [Mass/Vol] 7.8 g/dL Normal 6.3-8.0 [facility] Comment on above: Order Comment: Speci men Type: BLOOD SPECIMENOrdering Facility: [facility] Address: [address] [place] [address] Performed By: #### 1 9123-9, 83502-3 ####[facility] [id number] [place] [address] [place] Sodium [Moles/Vol] 134 mmol/L Low 136-144 [facility] Comment on above: Order Comment: Speci men Type: BLOOD SPECIMENOrdering Facility: [facility] Address: [address] [place] [address] Performed By: #### 1 9123-9, 30606-8 ####[facility]IDAAM[facility]AA [id number] [place] [address] [place] Urea nitrogen [Mass/Vol] 24 mg/dL Normal 9-24 [facility] Comment on above: Order Comment: Speci men Type: BLOOD SPECIMENOrdering Facility: [facility] Address: [address] [place] [address] Performed By: #### 1 9123-9, 75807-7 ####[facility]CL[facility] [id number] [place] [address] [place] HbA1c (Bld)on 04-17-2024 Average glucose Estimated from glycated hemoglobin (Bld) [Mass/Vol] 85 mg/dL Normal [facility] Comment on above: Order Comment: Ehsan nunes Type: BLOOD SPECIMENOrdering Facility: [facility] Address: [address] [place] [address] Result Comment: eAG: (Estimated average glucose) is a calculated value from HgbA1c and is leasing representative of the average blood glucose level in the last 2-3 month period. Performed By: #### 5 5454-3 ####[facility] LABCLIA [id number] [place] [address] [place] HbA1c (Bld) [Mass fraction] 4.6 % Normal 4.3-5.6 [facility] Comment on above: Order Comment: Ehsan nunes Type: BLOOD SPECIMENOrdering Facility: [facility] Address: [address] [place] [address] Result Comment: Amer [place] Diabetes Association guidelines indicate that patients with HgbA1c in the range 5.7-6.4% are at increased risk for development of diabetes, and intervention by lifestyle modification may be beneficial. HgbA1c greater or equal to 6.5% is considered diagnostic of diabetes. Performed By: #### 5 5454-3 ####[facility] LABCLIA [id number] [place] [address] [place] LIPID PANEL, NONFASTINGon Cholesterol [Mass/Vol] 117 mg/dL Normal <200 [facility] Comment on above: Order Comment: Ehsan nunes Type: BLOOD SPECIMENOrdering Facility: [facility] Address: [address] [place] [address] Result Comment: <200 mg/dL, Desirable 200-239 mg/dL, Borderline high >239 mg/dL, High Performed By: #### L IPNF, 3016-3 ####[facility] LABIA [id number] [place] [address] [place] HDL CHOLESTEROL, NF 49 mg/dL Normal >39 [facility] Comment on above: Order Comment: Ehsan nunes Type: BLOOD SPECIMENOrdering Facility: [facility] Address: [address] [place] [address] Result Comment: 40-5 9 mg/dL, Acceptable >59 mg/dL, High: Negative risk factor for coronary heart disease <40 mg/dL, Low: Positive risk factor for coronary heart disease Performed By: #### L PHAN, 3015-3 ####[facility] LABCLIA [id number] [address] [place] LDL CHOLESTEROL, NF 52 mg/dL Normal <100 [facility] Comment on above: Order Comment: Speci men Type: BLOOD SPECIMENOrdering Facility: [facility] Address: [address] [place] [address] Result Comment: <100 mg/dL, Optimal 100-129 mg/dL, Near optimal/above optimal 130-159 mg/dL, Borderline high 160-189 mg/dL, High >189 mg/dL, Very high Secondary prevention optimal LDL Cholesterol levels are recommended to be < 70 mg/dL Performed By: #### L PHAN, 3015- ####[facility] LABCLIA [id number] [address] [place] LDL/HDL RATIO, NF 1.06 mg/dL Normal <2.54 [facility] Comment on above: Order Comment: Meghani men Type: BLOOD SPECIMENOrdering Facility: [facility] Address: [address] [place] [address] Result Comment: Refe rence: 1. National Cholesterol Education Program ATP III Guideline At-A-Glance Quick Desk Reference: National Heart, Lung, and Blood [place]. National Institutes of Health. 2001: NIH Publication No. 01-3305. 2. An International Atherosclerosis Society position paper: global recommendations for the management of dyslipidemia: executive summary, Atherosclerosis. 2014: 232(2):410-413. Performed By: #### L PHAN, 3015-3 ####[facility] LABCLIA [id number] [place] [address] [place] NON HDL CHOL, NF 68 mg/dL Normal <130 [facility] Comment on above: Order Comment: Speci men Type: BLOOD SPECIMENOrdering Facility: [facility] Address: [address] [place] [address] Result Comment: <130 mg/dL, Optimal 130-159 mg/dL, Near optimal/above optimal 160-189 mg/dL, Borderline high 190-219 mg/dL, High >219 mg/dL, Very high Secondary prevention optimal non HDL Cholesterol levels are recommended to be <100 mg/dL Performed By: #### L IPNF, 3015-3 ####[facility] LABCLIA [id number] [place] [address] [place] T CHOL/HDL RATIO NF 2.39 mg/dL Normal <5.10 [facility] Comment on above: Order Comment: Speci men Type: BLOOD SPECIMENOrdering Facility: [facility] Address: [address] [place] [address] Performed By: #### L IPNF, 3015-3 ####[facility] LABCLIA [id number] [place] [address] [place] TRIGLYCERIDES, NF 79 mg/dL Normal <150 [facility] Comment on above: Order Comment: Speci men Type: BLOOD SPECIMENOrdering Facility: [facility] Address: [address] [place] [address] Result Comment: <150 mg/dL, Normal 150-199 mg/dL, Borderline high 200-499 mg/dL, High >499 mg/dL, Very high Performed By: #### L IPNF, 3015-3 ####[facility] LABCLIA [id number] [place] [address] [place] VLDL CHOLESTEROL, NF 16 mg/dL Normal <30 [facility] Comment on above: Order Comment: Speci men Type: BLOOD SPECIMENOrdering Facility: [facility] Address: [address] [place] [address] Performed By: #### L IPNF, 3015-3 ####[facility] LABCLIA [id number] [place] [id number] [place] Magnesium SerPl-mCncon 04-17 Magnesium [Mass/Vol] 2.2 mg/dL Normal 1.7-2.3 [facility] Comment on above: Order Comment: Speci men Type: BLOOD SPECIMENOrdering Facility: [facility] Address: [address] [place] [address] Performed By: #### 1 9123-9, 97404-8 ####[facility] [id number] [place] [address] [place] PSA SerPl-mCncon 04-17-2024 Prostate specific Ag [Mass/Vol] 1.48 ng/mL Normal <2.60 [facility] Comment on above: Order Comment: Speci men Type: BLOOD SPECIMENOrdering Facility: [facility] Address: [address] [place] [address] Result Comment: Tota l PSA test methodology used is the Electrochemiluminescence Immunoassay by [employer]. Total PSA values by differing methodologies cannot be interchanged. Performed By: #### 2 857-1 ####[facility] LABCLIA [id number] [place] [address] [place] Retics #on 04-17-2024 Reticulocytes (Bld) [#/Vol] 0.71037 10*3/uL Normal 0.018-0.100 [facility] Comment on above: Order Comment: Speci men Type: BLOOD SPECIMENOrdering Facility: [facility] Address: [address] [place] [address] Performed By: #### 5 7021-8, 29559-5 ####[facility] [id number] [place] [address] [place] Reticulocytes (Bld) [#/Vol]o n 04-17-2024 Reticulocytes/100 RBC (Bld) 1.2 % Normal 0.4-2.0 [facility] Comment on above: Order Comment: Speci men Type: BLOOD SPECIMENOrdering Facility: [facility] Address: [address] [place], [place] [address] Performed By: #### 5 7021-8, 84007-3 ####[facility] [id number] [place] [address] [place] TSH SerPl-aCncon 04-17-2024 TSH Qn 2.780 m[IU]/L Normal 0.270-4.200 [facility] Comment on above: Order Comment: Speci men Type: BLOOD SPECIMENOrdering Facility: [facility] Address: [address] [place] [address] Performed By: #### L IPNF, 3016-3 ####[facility] LABCLIA [id number] [place] [id number] [place] [id number] 03-31-2024 [id number] HNO ID: [id number] Author: TYE FLORES PT Service: ? Author Type: Physical Therapist Type: [id number] Filed: 03/31/2024 16:43 Note Text: [facility] Physical Therapy Plan of Care Certification Patient Name: Jacob Landa : 1955 [facility] #: [id number] Date: 09/06/2023 To: Jesus Manuel Resendiz PA-C [...] Patient to be seen for Therapeutic exercise (92243), Neuromuscular re-education (47434), Manual therapy (72023), Therapeutic activities (05253), Self-jail management (81031), Patient/Family/Caregiver Education PLAN FOR NEXT VISIT: Core strengthening For further details regarding this patient refer to the Physical Therapy electronically documented visit dated 09/06/2023. Provider Attestation I have reviewed the treatment plan for Jacob Landa, [facility]# [id number] for the period of 09/06/23 -- 10/11/23, established on 09/06/2023. Signature certifies the need for therapy services. Normal [facility] CNOVon 03-11-2024 CNOV Office Visit (FAMPWS ) -- JACOB LANDA ([id number]) 1955 M Date Time Provider Department 03/11/24 [...] (Radiation Oncology) Luly Gaffney RN as Specialty Business Communications Instructor (Oncology) Richard Jenkins DO as Referring (Hematology/Oncology) Haroldo Noland MD (Cardiology) Sena Seymour, MICHELE (Inactive) as Telegraph Editor Friend, Bud Paul DO (Gastroenterology) Helen Gibson, Maegan Ferguson, RN as Primary Care Outsole Molder Medical/Family history review Reviewed and updated problem list, medical/surgical/family/so cial history, medications, and allergies. Opioid use review Opioid Medications (last 90 days) 01/03/2024 Opioid Medications hydrocodone/acetaminophen 1 tablet q 6 H PRN Given at [facility] ER 09/10/23 ORAL (2.5-325 mg tab) -Discontinued [...] vertebra (HCC) 07/12/2023 Coronary artery disease involving [place] coronary artery without angina pectoris Seeing Dr. [...] valve diso (more content not included)... Normal [facility] Basic Metabolic Profile (BMP )on 02-17-2024 BUN/CRE 11.7 RATIO Normal 10-20 [facility] Comment on above: Performed By: #### L 500.2500, L100.0500 ####[facility] [address] [place], [address] CA,Total 8.2 mg/dL Low 8.5-10.1 [facility] Comment on above: Performed By: #### L 500.2500, L100.0500 ####[facility] [address] [place], [address] Chloride [Moles/Vol] 105 mmol/L Normal 98-107 [facility] Comment on above: Performed By: #### L 500.2500, L100.0500 ####[facility] [address] [place], [address] CO2 [Moles/Vol] 24.0 mmol/L Normal 21.0-32.0 [facility] Comment on above: Performed By: #### L 500.2500, L100.0500 ####[facility] [address] [place], [address] Creatinine [Mass/Vol] 4.10 mg/dL High 0.70-1.30 [facility] Comment on above: Result Comment: The validity of the calculated GFR GFRAA in patients over 70 years has not been determined. Clinical correlation is essential. Performed By: #### L 500.2500, L100.0500 ####[facility] [address] [place], [address] ECRCL 20.16 ml/min Normal [facility] Comment on above: Performed By: #### L 500.2500, L100.0500 ####[facility] [address] [place], [address] EST GFR - AA 19 mL/min Low >60 [facility] Comment on above: Result Comment: Afri can Peruvian GFR Calc Performed By: #### L 500.2500, L100.0500 ####[facility] [address] [place], [address] GAP 7 Normal 5-15 [facility] Comment on above: Performed By: #### L 500.2500, L100.0500 ####[facility] [address] [place], [address] GFR/1.73 sq M.predicted among non-blacks MDRD (S/P/Bld) [Vol rate/Area] 15 mL/min/{1.73_m2} Low >60 [facility] Comment on above: Result Comment: Non- GFR Calc Performed By: #### L 500.2500, L100.0500 ####[facility] [address] [place], [address] Glucose [Mass/Vol] 93 mg/dL Normal 74-106 [facility] Comment on above: Performed By: #### L 500.2500, L100.0500 ####[facility] [address] [place], [address] Potassium [Moles/Vol] 4.8 mmol/L Normal 3.5-5.1 [facility] Comment on above: Performed By: #### L 500.2500, L100.0500 ####[facility] [address] [place], [address] Sodium [Moles/Vol] 136 mmol/L Normal 136-145 [facility] Comment on above: Performed By: #### L 500.2500, L100.0500 ####[facility] [address] [place], [address] Urea nitrogen [Mass/Vol] 48 mg/dL High 7-18 [facility] Comment on above: Performed By: #### L 500.2500, L100.0500 ####[facility] [address] [place], [address] CBC-Complete Blood Cnt No Di ffon 02-17-2024 Erythrocyte distribution width (RBC) [Ratio] 19.0 % High 11.6-14.6 [facility] Comment on above: Performed By: #### L 500.2500, L100.0500 ####[facility] [address] [place], [address] Hematocrit (Bld) [Volume fraction] 34.3 % Low 40-54 [facility] Comment on above: Performed By: #### L 500.2500, L100.0500 ####[facility] [address] [place], [address] Hemoglobin (Bld) [Mass/Vol] 10.5 g/dL Low 13.0-16.5 [facility] Comment on above: Performed By: #### L 500.2500, L100.0500 ####[facility] [address] [place], [address] MCH (RBC) [Entitic mass] 28.2 pg Normal 27.0-32.0 [facility] Comment on above: Performed By: #### L 500.2500, L100.0500 ####[facility] [address] [place], [address] MCHC (RBC) [Mass/Vol] 30.6 g/dL Low 32-36 [facility] Comment on above: Performed By: #### L 500.2500, L100.0500 ####[facility] [address] [place], [address] MCV (RBC) [Entitic vol] 92.0 fL Normal 80-94 [facility] Comment on above: Performed By: #### L 500.2500, L100.0500 ####[facility] [address] [place], [address] Platelet mean volume (Bld) [Entitic vol] 8.7 fL Normal 6.2-12.0 [facility] Comment on above: Performed By: #### L 500.2500, L100.0500 ####[facility] [address] [place], [address] Platelets (Bld) [#/Vol] 104 10*3/uL Low 150-450 [facility] Comment on above: Performed By: #### L 500.2500, L100.0500 ####[facility] [address] [place], [address] RBC (Bld) [#/Vol] 3.73 10*6/uL Low 4.6-6.2 [facility] Comment on above: Performed By: #### L 500.2500, L100.0500 ####[facility] [address] [place], [address] RDW SD 63.3 fl High 35.1-43.9 [facility] Comment on above: Performed By: #### L 500.2500, L100.0500 ####[facility] [address] [place], [address] WBC (Bld) [#/Vol] 4.9 10*3/uL Normal 4.4-11.0 [facility] Comment on above: Performed By: #### L 500.2500, L100.0500 ####[facility] [address] [place], [address] Basic Metabolic Profile (BMP )on 02-16-2024 BUN/CRE 10.3 RATIO Normal 10-20 [facility] Comment on above: Performed By: #### L 500.2500, L100.0500 ####[facility] [address] [place], [address] CA,Total 8.2 mg/dL Low 8.5-10.1 [facility] Comment on above: Performed By: #### L 500.2500, L100.0500 ####[facility] [address] [place], [address] Chloride [Moles/Vol] 106 mmol/L Normal 98-107 [facility] Comment on above: Performed By: #### L 500.2500, L100.0500 ####[facility] [address] [place], [address] CO2 [Moles/Vol] 23.0 mmol/L Normal 21.0-32.0 [facility] Comment on above: Performed By: #### L 500.2500, L100.0500 ####[facility] [address] [place], [address] Creatinine [Mass/Vol] 3.10 mg/dL High 0.70-1.30 [facility] Comment on above: Result Comment: The validity of the calculated GFR GFRAA in patients over 70 years has not been determined. Clinical correlation is essential. Performed By: #### L 500.2500, L100.0500 ####[facility] [address] [place], [address] ECRCL 26.69 ml/min Normal [facility] Comment on above: Performed By: #### L 500.2500, L100.0500 ####[facility] [address] [place], [address] EST GFR - AA 26 mL/min Low >60 [facility] Comment on above: Result Comment: Afri can Peruvian GFR Calc Performed By: #### L 500.2500, L100.0500 ####[facility] [address] [place], [address] GAP 7 Normal 5-15 [facility] Comment on above: Performed By: #### L 500.2500, L100.0500 ####[facility] [address] [place], [address] GFR/1.73 sq M.predicted among non-blacks MDRD (S/P/Bld) [Vol rate/Area] 21 mL/min/{1.73_m2} Low >60 [facility] Comment on above: Result Comment: Non- GFR Calc Performed By: #### L 500.2500, L100.0500 ####[facility] [address] [place], [address] Glucose [Mass/Vol] 74 mg/dL Normal 74-106 [facility] Comment on above: Performed By: #### L 500.2500, L100.0500 ####[facility] [address] [place], [address] Potassium [Moles/Vol] 5.1 mmol/L Normal 3.5-5.1 [facility] Comment on above: Performed By: #### L 500.2500, L100.0500 ####[facility] [address] [place], [address] Sodium [Moles/Vol] 136 mmol/L Normal 136-145 [facility] Comment on above: Performed By: #### L 500.2500, L100.0500 ####[facility] [address] [place], [address] Urea nitrogen [Mass/Vol] 32 mg/dL High 7-18 [facility] Comment on above: Performed By: #### L 500.2500, L100.0500 ####[facility] [address] [place], [address] CBC-Complete Blood Cnt No Di ffon 02-16-2024 Erythrocyte distribution width (RBC) [Ratio] 19.1 % High 11.6-14.6 [facility] Comment on above: Performed By: #### L 500.2500, L100.0500 ####[facility] [address] [place], [address] Hematocrit (Bld) [Volume fraction] 38.8 % Low 40-54 [facility] Comment on above: Performed By: #### L 500.2500, L100.0500 ####[facility] [address] [place], [address] Hemoglobin (Bld) [Mass/Vol] 11.5 g/dL Low 13.0-16.5 [facility] Comment on above: Performed By: #### L 500.2500, L100.0500 ####[facility] [address] [place], [address] MCH (RBC) [Entitic mass] 27.8 pg Normal 27.0-32.0 [facility] Comment on above: Performed By: #### L 500.2500, L100.0500 ####[facility] [address] [place], [address] MCHC (RBC) [Mass/Vol] 29.6 g/dL Low 32-36 [facility] Comment on above: Performed By: #### L 500.2500, L100.0500 ####[facility] [address] [place], [address] MCV (RBC) [Entitic vol] 93.9 fL Normal 80-94 [facility] Comment on above: Performed By: #### L 500.2500, L100.0500 ####[facility] [address] [place], [address] Platelet mean volume (Bld) [Entitic vol] 9.0 fL Normal 6.2-12.0 [facility] Comment on above: Performed By: #### L 500.2500, L100.0500 ####[facility] [address] [place], [address] Platelets (Bld) [#/Vol] 110 10*3/uL Low 150-450 [facility] Comment on above: Performed By: #### L 500.2500, L100.0500 ####[facility] [address] [place], [address] RBC (Bld) [#/Vol] 4.13 10*6/uL Low 4.6-6.2 [facility] Comment on above: Performed By: #### L 500.2500, L100.0500 ####[facility] [address] [place], [address] RDW SD 64.0 fl High 35.1-43.9 [facility] Comment on above: Performed By: #### L 500.2500, L100.0500 ####[facility] [address] [place], [address] WBC (Bld) [#/Vol] 8.6 10*3/uL Normal 4.4-11.0 [facility] Comment on above: Performed By: #### L 500.2500, L100.0500 ####[facility] [address] [place], [address] 12 Lead EKGon 02-15-2024 12 Lead EKG [facility] Cardiovascular Services [address] [place] [address] 12 Lead EKG 02/15/24 0517 MR#: [id number] Acct: [id number] Name: JACOB LANDA Rep #: [id number] : 1955 68 From: Haroldo Noland MD Attending Dr: Dr. Gayatri Roy, DO Status: DIS I N Ordering Dr: Cameron Rosas MD Date: 02/15/24 Location: [facility] Sex: M C Admitted: [...] UNCONFIRMED Confirmed by LUDIN MANNING, HAROLDO ([id number]), editor farm journal CHRISTIANO OWENS ([id number]) on 02/18/2024 12:37:01 PM Referred By: CORADO Confirmed By: HAROLDO NOLAND MD 02/18/24 1237 Date Haroldo Noland MD CC: Dr. Cameron Rosas MD; Dr. Yaw Singh MD; Dr. Gayatri Roy, DO Signed Normal [facility] CBC W/Diff, Automatedon 11-0 Absolute Lymph 0.62 X10 3/uL Low 0.83-4.51 [facility] Comment on above: Performed By: #### L 500.4050, L501.2300, L100.0100, L501.5200, L501.9520 #### [facility] Laboratory [address] [place], [address] Absolute Neut 3.7 X10 3/uL Normal 2.0-7.7 [facility] Comment on above: Performed By: #### L 500.4050, L501.2300, L100.0100, L501.5200, L501.9520 #### [facility] [address] [place], [address] Basophils/100 WBC (Bld) 0.8 % Normal 0-1 [facility] Comment on above: Performed By: #### L 500.4050, L501.2300, L100.0100, L501.5200, L501.9520 #### [facility] Laboratory [address] [place], [address] Eosinophils/100 WBC (Bld) 1.0 % Normal 0-5 [facility] Comment on above: Performed By: #### L 500.4050, L501.2300, L100.0100, L501.5200, L501.9520 #### [facility] [address] [place], [address] Erythrocyte distribution width (RBC) [Ratio] 19.5 % High 11.6-14.6 [facility] Comment on above: Performed By: #### L 500.4050, L501.2300, L100.0100, L501.5200, L501.9520 #### [facility] Laboratory [address] [place], [address] Hematocrit (Bld) [Volume fraction] 40.6 % Normal 40-54 [facility] Comment on above: Performed By: #### L 500.4050, L501.2300, L100.0100, L501.5200, L501.9520 #### [facility] Laboratory [address] [place], [address] Hemoglobin (Bld) [Mass/Vol] 12.3 g/dL Low 13.0-16.5 [facility] Comment on above: Performed By: #### L 500.4050, L501.2300, L100.0100, L501.5200, L501.9520 #### [facility] Laboratory [address] [place], [address] IG% 0.400 Normal 0.0-0.9 [facility] Comment on above: Result Comment: IG% - Immature Granulocytes (promyelocytes, myelocytes and metamyelocytes) > 1% indicates that a LEFT SHIFT is Present. Performed By: #### L 500.4050, L501.2300, L100.0100, L501.5200, L501.9520 #### [facility] [address] [place], [address] Lymphocytes/100 WBC (Bld) 12.7 % Low 19-41 [facility] Comment on above: Performed By: #### L 500.4050, L501.2300, L100.0100, L501.5200, L501.9520 #### [facility] [address] [place], [address] MCH (RBC) [Entitic mass] 28.0 pg Normal 27.0-32.0 [facility] Comment on above: Performed By: #### L 500.4050, L501.2300, L100.0100, L501.5200, L501.9520 #### [facility] Laboratory [address] [place], [address] MCHC (RBC) [Mass/Vol] 30.3 g/dL Low 32-36 [facility] Comment on above: Performed By: #### L 500.4050, L501.2300, L100.0100, L501.5200, L501.9520 #### [facility] [address] [place], [address] MCV (RBC) [Entitic vol] 92.5 fL Normal 80-94 [facility] Comment on above: Performed By: #### L 500.4050, L501.2300, L100.0100, L501.5200, L501.9520 #### [facility] [address] [place], [address] Monocytes/100 WBC (Bld) 8.6 % Normal 0-10 [facility] Comment on above: Performed By: #### L 500.4050, L501.2300, L100.0100, L501.5200, L501.9520 #### [facility] [address] [place], [address] Neutrophils/100 WBC (Bld) 76.5 % High 47-70 [facility] Comment on above: Performed By: #### L 500.4050, L501.2300, L100.0100, L501.5200, L501.9520 #### [facility] [address] [place], [address] Nucleated RBC (Bld) [#/Vol] 0 10*3/uL Normal 0-5 [facility] Comment on above: Performed By: #### L 500.4050, L501.2300, L100.0100, L501.5200, L501.9520 #### [facility] [address] [place], [address] Platelet mean volume (Bld) [Entitic vol] 9.6 fL Normal 6.2-12.0 [facility] Comment on above: Performed By: #### L 500.4050, L501.2300, L100.0100, L501.5200, L501.9520 #### [facility] [address] [place], [address] Platelets (Bld) [#/Vol] 120 10*3/uL Low 150-450 [facility] Comment on above: Performed By: #### L 500.4050, L501.2300, L100.0100, L501.5200, L501.9520 #### [facility] [address] [place], [address] RBC (Bld) [#/Vol] 4.39 10*6/uL Low 4.6-6.2 [facility] Comment on above: Performed By: #### L 500.4050, L501.2300, L100.0100, L501.5200, L501.9520 #### [facility] [address] [place], [address] RDW SD 62.8 fl High 35.1-43.9 [facility] Comment on above: Performed By: #### L 500.4050, L501.2300, L100.0100, L501.5200, L501.9520 #### [facility] [address] [place], [address] WBC (Bld) [#/Vol] 4.9 10*3/uL Normal 4.4-11.0 [facility] Comment on above: Performed By: #### L 500.4050, L501.2300, L100.0100, L501.5200, L501.9520 #### [facility] [address] [place], [address] Comprehensive Metabolic Prof ilon 02-15-2024 Albumin [Mass/Vol] 2.4 g/dL Low 3.2-5.0 [facility] Comment on above: Performed By: #### L 500.4050, L501.2300, L100.0100, L501.5200, L501.9520 #### [facility] [address] [place], [address] Albumin/Globulin [Mass ratio] 0.7 {ratio} Low 0.9-2.4 [facility] Comment on above: Performed By: #### L 500.4050, L501.2300, L100.0100, L501.5200, L501.9520 #### [facility] [address] [place], [address] ALK P 108 U/L Normal 45-117 [facility] Comment on above: Performed By: #### L 500.4050, L501.2300, L100.0100, L501.5200, L501.9520 #### [facility] [address] [place], [address] ALT [Catalytic activity/Vol] 38 U/L Normal 16-61 [facility] Comment on above: Performed By: #### L 500.4050, L501.2300, L100.0100, L501.5200, L501.9520 #### [facility] [address] [place], [address] AST [Catalytic activity/Vol] 16 U/L Normal 15-37 [facility] Comment on above: Performed By: #### L 500.4050, L501.2300, L100.0100, L501.5200, L501.9520 #### [facility] [address] [place], [address] Bilirubin [Mass/Vol] 0.50 mg/dL Normal 0.20-1.00 [facility] Comment on above: Result Comment: For patients on eltrombopag therapy, use of Dimension Hye TBIL is not recommended. Performed By: #### L 500.4050, L501.2300, L100.0100, L501.5200, L501.9520 #### [facility] [address] [place], [address] BUN/CRE 9.9 RATIO Low 10-20 [facility] Comment on above: Performed By: #### L 500.4050, L501.2300, L100.0100, L501.5200, L501.9520 #### [facility] [address] [place], [address] CA,Total 8.3 mg/dL Low 8.5-10.1 [facility] Comment on above: Performed By: #### L 500.4050, L501.2300, L100.0100, L501.5200, L501.9520 #### [facility] [address] [place], [address] Chloride [Moles/Vol] 104 mmol/L Normal 98-107 [facility] Comment on above: Performed By: #### L 500.4050, L501.2300, L100.0100, L501.5200, L501.9520 #### [facility] [address] [place], [address] CO2 [Moles/Vol] 28.0 mmol/L Normal 21.0-32.0 [facility] Comment on above: Performed By: #### L 500.4050, L501.2300, L100.0100, L501.5200, L501.9520 #### [facility] [address] [place], [address] Creatinine [Mass/Vol] 3.43 mg/dL High 0.70-1.30 [facility] Comment on above: Result Comment: The validity of the calculated GFR GFRAA in patients over 70 years has not been determined. Clinical correlation is essential. Performed By: #### L 500.4050, L501.2300, L100.0100, L501.5200, L501.9520 #### [facility] [address] [place], [address] ECRCL 23.15 ml/min Normal [facility] Comment on above: Performed By: #### L 500.4050, L501.2300, L100.0100, L501.5200, L501.9520 #### [facility] [address] [place], [address] EST GFR - AA 23 mL/min Low >60 [facility] Comment on above: Result Comment: Afri can Peruvian GFR Calc Performed By: #### L 500.4050, L501.2300, L100.0100, L501.5200, L501.9520 #### [facility] [address] [place], [address] GAP 7 Normal 5-15 [facility] Comment on above: Performed By: #### L 500.4050, L501.2300, L100.0100, L501.5200, L501.9520 #### [facility] [address] [place], [address] GFR/1.73 sq M.predicted among non-blacks MDRD (S/P/Bld) [Vol rate/Area] 19 mL/min/{1.73_m2} Low >60 [facility] Comment on above: Result Comment: Non- GFR Calc Performed By: #### L 500.4050, L501.2300, L100.0100, L501.5200, L501.9520 #### [facility] [address] [place], [address] Globulin (S) [Mass/Vol] 3.4 g/dL Normal 2.2-4.2 [facility] Comment on above: Performed By: #### L 500.4050, L501.2300, L100.0100, L501.5200, L501.9520 #### [facility] [address] [place], [address] Glucose [Mass/Vol] 85 mg/dL Normal 74-106 [facility] Comment on above: Performed By: #### L 500.4050, L501.2300, L100.0100, L501.5200, L501.9520 #### [facility] [address] [place], [address] Potassium [Moles/Vol] 4.4 mmol/L Normal 3.5-5.1 [facility] Comment on above: Performed By: #### L 500.4050, L501.2300, L100.0100, L501.5200, L501.9520 #### [facility] [address] [place], [address] Sodium [Moles/Vol] 139 mmol/L Normal 136-145 [facility] Comment on above: Performed By: #### L 500.4050, L501.2300, L100.0100, L501.5200, L501.9520 #### [facility] [address] [place], [address] T PROT 5.8 g/dL Low 6.4-8.2 [facility] Comment on above: Performed By: #### L 500.4050, L501.2300, L100.0100, L501.5200, L501.9520 #### [facility] [address] [place], [address] Urea nitrogen [Mass/Vol] 34 mg/dL High 10-24 [facility] Comment on above: Performed By: #### L 500.4050, L501.2300, L100.0100, L501.5200, L501.9520 #### [facility] Laboratory [address] [place], [address] Consultation - Cardiologyon 02-15-2024 Consultation - Cardiology [facility] Medical Records Department [address] [place] [address] Consultation - Cardiology 02/15/24824 MR#: [id number] Acct: [id number] Name: JACOB LANDA Rep #: [id number] : 1955 68 From: Trinh Briones MD PCP: Dr. Yaw Singh MD Status:ADM IN Location: [place] [address] Pt seen evaluated w/DEVYN. I personally interviewed [...] Once stable patient to follow-up with primary motion picture critic at [facility] cardiac team for continuation of cardiac care [...] is a 68 M who presented To [facility] emergency room on 02/14/2024 with left hip [...] In October 2023 patient was admitted to [facility] with sepsis secondary to acute cystitis and [...] edema. He is still able to urinate. 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 Normal [facility] Consultation - Nephrologyon 02-15-2024 Consultation - Nephrology [facility] Medical Records Department [address] [place] [address] Consultation - Nephrology 02/15/24 1427 MR#: [id number] Acct: [id number] Name: JACOB LANDA Rep #: [id number] : 1955 68 From: Gaudencio Greenberg MD PCP: Dr. Yaw Singh MD Status:ADM IN Location: [place] [id number] Assessment Plan Assessment/Plan (1) End stage renal [...] scheduled to go to surgery later today. 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 Normal [facility] Consultation - Orthopedicson 02-15-2024 Consultation - Orthopedics [facility] Medical Records Department [address] [place] [address] Consultation - Orthopedics 02/15/24 1605 MR#: [id number] Acct: [id number] Name: JACOB LANDA Rep #: [id number] : 1955 68 From: Jerod Marc MD PCP: Dr. Yaw Singh MD Status:ADM [id number] Consult Data Date of Consult: 02/15/24 [...] pain. Patient denies a history of DVTs. 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 Normal [facility] Decalcification bone/plaqueo n 02-15-2024 Decalcification bone/plaque Patient Age/Sex Location Account Attending Physician SYEDAJACOB TATE 68/M [facility] [id number] Dr. Gayatri Roy, DO Specimen: [id number] Received: 02/18/24 Status: ORAPamela Alberto Num: [id number] Spec Type: TOTAL HIP Subm Dr: Dr. [...] measuring 2.5 x 1.0 x 0.4 cm. Homicide Investigator sections are submitted in three cassettes as follows: 1 - soft tissue, entirely submitted, 2 - detached pieces of bone after decalcification, 3 - femoral head after decalcification. / 02/18/2024 TC:5 [facility]: [address], [address] Patient Age/Sex Location Account Attending Physician JACOB LANDA 68/M [facility] [id number] Dr. Gayatri Roy DO Signed (signature on file) Dr. Scott Adame DO 02/21/24 1135 Normal [facility] Comment on above: Performed By: #### P DEC ####[facility] [address] [place], [place], [address] Hip Min 2 Views (Portable)on 02-15-2024 Hip Min 2 Views (Portable) [facility] Imaging Services [address] [place] [address] Hip Min 2 Views (Portable) MR#: [id number] Acct: [id number] Name: JACOB LANDA Rep #: [id number] : 1955 M 68 From: Maegan Gamble MD PCP: Dr. Yaw Singh MD Status: ADM IN Study: Hip Min 2 Views (Portable) Date of Exam: 02/14 Exam# [id number] Ordering Dr: Jerod Marc MD [id number] EXAM: XR LEFT HIP WITH PELVIS WHEN PERFORMED, 2 OR 3 VIEWS CLINICAL INDICATION: Post Op -- AP both hips on single gissell/lateral of op hip PACU TECHNIQUE: 1 view of the left hip, 2 views of the pelvis, 1 mildly rotated to the left. COMPARISON: February 14, 2024 preop exam. FINDINGS: BONES/JOINTS: Mildly widened [place] left acetabulum, left femoral head prosthesis appears adequately positioned. The pelvis appears to be demineralized. SOFT TISSUES: Mild soft tissue swelling and slight scattered gas. RAD/Hip Min 2 Views (Portable) IMPRESSION: Well-positioned left femoral head prosthesis. Postop soft tissue changes. Electronically Signed: Maegan Gamble MD at 19:09 EST , CC: Dr. Yaw Singh MD; Dr. Jerod Marc MD Airveyor Operator: Signed Normal [facility] Hip Min 2 Views (Portable) [facility] Imaging Services [address] [place], [place] [id number] Hip Min 2 Views (Portable) MR#: [id number] Acct: [id number] Name: JACOB LANDA Rep #: [id number] : 1955 M 68 From: Maegan Gamble MD PCP: Dr. Yaw Singh MD Status: ADM IN Study: Hip Min 2 Views (Portable) Date of Exam: 02/14 Exam# [id number] Ordering Dr: Jerod Marc MD [id number] Exam: XR Hip Unilateral with Pelvis when [...] Yaw Singh MD; Dr. Jerod Marc MD Airveyor Operator: Signed Normal [facility] Liver Profileon 02-15-2024 Albumin [Mass/Vol] 2.4 g/dL Low 3.2-5.0 [facility] Comment on above: Order Comment: FOR M ORNING LABS PER DOUG Performed By: #### L 300.3900, L500.3400, L300.4310 #### [facility] Laboratory [address] [place], [address] ALK P 105 U/L Normal 45-117 [facility] Comment on above: Order Comment: FOR M ORNING LABS PER DOUG Performed By: #### L 300.3900, L500.3400, L300.4310 #### [facility] Laboratory [address] [place], [address] ALT [Catalytic activity/Vol] 37 U/L Normal 16-61 [facility] Comment on above: Order Comment: FOR M ORNING LABS PER DOUG Performed By: #### L 300.3900, L500.3400, L300.4310 #### [facility] Laboratory [address] [place], [address] AST [Catalytic activity/Vol] 15 U/L Normal 15-37 [facility] Comment on above: Order Comment: FOR M ORNING LABS PER DOUG Performed By: #### L 300.3900, L500.3400, L300.4310 #### [facility] [address] [place], [address] Bilirubin [Mass/Vol] 0.60 mg/dL Normal 0.20-1.00 [facility] Comment on above: Order Comment: FOR M ORNING LABS PER DOUG Result Comment: For patients on eltrombopag therapy, use of Dimension Hye TBIL is not recommended. Performed By: #### L 300.3900, L500.3400, L300.4310 #### [facility] [address] [place], [address] Bilirubin.direct [Mass/Vol] 0.21 mg/dL Normal 0.00-0.30 [facility] Comment on above: Order Comment: FOR M ORNING LABS PER DOUG Performed By: #### L 300.3900, L500.3400, L300.4310 #### [facility] [address] [place], [address] Globulin (S) [Mass/Vol] 3.9 g/dL Normal 2.2-4.2 [facility] Comment on above: Order Comment: FOR M ORNING LABS PER DOUG Performed By: #### L 300.3900, L500.3400, L300.4310 #### [facility] Laboratory [address] [place], [address] T PROT 6.3 g/dL Low 6.4-8.2 [facility] Comment on above: Order Comment: FOR M SALOME LABS PER DOUG Performed By: #### L 300.3900, L500.3400, L300.4310 #### [facility] Laboratory [address] [place], [address] MR/POSTOP.ANEon 02-15-2024 MR/POSTOP.ANE [facility] Medical Records Department [address] [place] [address] Anesthesia Postop Eval I 02/15/241806 MR#: [id number] Acct: [id number] Name: JACOB LANDA Rep #: [id number] : 1955 68 From: Cameron Rosas MD PCP: Dr. Yaw Singh MD Status:ADM IN Y Race: C Location: [place] [address] Anesthesia: Postop Eval I Current Vital Signs [...] MD Cosigner Signature: Date CC: Signed Normal [facility] MR/[id number] 02-15-2024 MR/POSTOPAN2 [facility] Medical Records Department [address] [place] [address] Anesthesia Postop Eval II 02/15/241807 MR#: [id number] Acct: [id number] Name: JACOB LANDA Rep #: [id number] : 1955 68 From: Cameron Rsoas MD PCP: Dr. Yaw Singh MD Status:ADM IN Y Race: C Location: [place] [address] Anesthesia Postop Eval I Sum Postop Eval [...] MD Cosigner Signature: Date CC: Signed Normal [facility] Magnesiumon 02-15-2024 Magnesium [Mass/Vol] 2.2 mg/dL Normal 1.6-2.6 [facility] Comment on above: Performed By: #### L 500.4050, L501.2300, L100.0100, L501.5200, L501.9520 ####[facility] [address] [place], [address] Operative Reporton 4 Operative Report [facility] Medical Records Department [address] [place] [address] Operative Report 02/15/24 1730 MR#: [id number] Acct: [id number] Name: JACOB LANDA Rep #: [id number] : 1955 68 From: Jerod Marc MD PCP: Dr. Yaw Singh MD Status:ADM IN [facility] Operative Report (Standard) Operative Information Surgery/Procedure Performed: [...] awakened by anesthesia and transferred to the [facility]. Patient was then transferred to the PACU for recovery. Postoperative plan: Patient will get 24 hours postop antibiotics. Patient will get in-house physical therapy and will be weight-bear as tolerated. Patient will follow up in office in 2 weeks for a wound check and x- rays. Aspirin 81 mg p.o. twice daily for DVT p (more content not included)... Normal [facility] Partial Thromboplast Timeon 02-15-2024 aPTT Coag (Bld) [Time] 32.2 s Normal 24.1-36.2 [facility] Comment on above: Performed By: #### L 300.3900, L500.3400, L300.4310 #### [facility] Laboratory [address] [place], [address] Phosphoruson 02-15-2024 Phosphate [Mass/Vol] 4.9 mg/dL Normal 2.5-4.9 [facility] Comment on above: Performed By: #### L 500.4050, L501.2300, L100.0100, L501.5200, L501.9520 #### [facility] Laboratory [address] [place], [address] Prothrombin Time w/INRon INR Coag (PPP) [Relative time] 1.5 {INR} Normal [facility] Comment on above: Performed By: #### L 300.3900, L500.3400, L300.4310 #### [facility] Laboratory [address] [place], [address] PT Coag (PPP) [Time] 18.0 s High 11.7-14.9 [facility] Comment on above: Performed By: #### L 300.3900, L500.3400, L300.4310 #### [facility] Laboratory [address] [place], [address] Thyroid Stim Hormone (TSH)on 02-15-2024 TSH 2.630 uIU/mL Normal 0.358-3.740 [facility] Comment on above: Performed By: #### L 500.4050, L501.2300, L100.0100, L501.5200, L501.9520 ####[facility] [address] [place], [place], [id number] Type AND Screenon 02-15-2024 ABO and Rh group Nom (Bld) Blood group A Rh(D) positive Normal [facility] Comment on above: Order Comment: SFRAC TURED HIP Performed By: #### B TS ####[facility] [address] [place], [place], [id number] XR CHEST 2V FRONTAL/LATon XR CHEST 2V [...] consolidations/atelectasis , similar to the prior study. Airveyor Operator: MORGAN Transcribe Date/Time: Feb 02 2024 7:06P Dictated by : ALICE GARCIA MD This examination was interpreted and the report reviewed and electronically signed by: ALICE GARCIA MD on Feb 02 2024 7:08PM EST [id number] Normal [facility] No Panel Informationon 01-23 IMPRESSION: Esophagectomy with gastric pull-through. Slow emptying of the stomach. Reflux into the esophagus. Delayed small bowel transit time of 4.5 hours. Airveyor Operator: MORGAN Transcribe Date/Time: Jan 24 2024 3:15P Dictated by : ELIAS CALVILLO MD This examination was interpreted and the report reviewed and electronically signed by: ELIAS CALVILLO MD on Jan 24 2024 3:22PM EST [facility] [employer] [facility] AndelO Radiology Study observation (narrative) [facility] No Panel InformationOrdered By: Ccf Provider on 01-24-2024 [facility] RF Gastrointestinal tract up per Views W [...] 4.5 hours. The terminal ileum appeared unremarkable. [employer] [facility] SYNGO Provider, Ccf [facility] - 01/24/2024 * * *Final Report* [...] small bowel transit time of 4.5 hours. Airveyor Operator[facility] Transcribe Date/Time: Jan 24 2024 3:15P Dictated by : ELIAS CALVILLO MD This examination was interpreted and the report reviewed and electronically signed by: ELIAS CALVILLO MD on Jan 24 2024 3:22PM [facility] Small bowel Diameter USon * * [...] appeared unremarkable. [facility] SYNGO Provider, Ccf [facility] - 01/24/2024 * * *Final Report* [...] small bowel transit time of 4.5 hours. Airveyor Operator: [facility] Transcribe Date/Time: Jan 24 2024 3:15P Dictated by : ELIAS CALVILLO MD This examination was interpreted and the report reviewed and electronically signed by: ELIAS CALVILLO MD on Jan 24 2024 3:22PM EST [facility] XR GI SMALL BOWEL FOLLOW-THR Uon 01-24-2024 [...] small bowel transit time of 4.5 hours. Airveyor Operator: [facility] Transcribe Date/Time: Jan 24 2024 3:15P Dictated by : ELIAS CALVILLO MD This examination was interpreted and the report reviewed and electronically signed by: ELIAS CALVILLO MD on Jan 24 2024 3:22PM EST [id number] Normal [facility] XR UPPER GI SINGLE CONTRASTo n 01-24-2024 [...] small bowel transit time of 4.5 hours. Airveyor Operator: [facility] Transcribe Date/Time: Jan 24 2024 3:15P Dictated by : ELIAS CALVILLO MD This examination was interpreted and the report reviewed and electronically signed by: ELIAS CALVILLO MD on Jan 24 2024 3:22PM EST [id number] Normal [facility] CBC W Auto Differential pane l (Bld)on 01-15-2024 Anisocytosis Ql (Bld) Present [facility] Basophils (Bld) [#/Vol] 0.04 10*3/uL [facility] Basophils/100 WBC (Bld) 0.6 % [facility] Differential cell count method Nom (Bld) Auto [facility] Eosinophils (Bld) [#/Vol] 0.06 10*3/uL [facility] Eosinophils/100 WBC (Bld) 0.9 % [facility] Erythrocyte distribution width (RBC) [Ratio] 19.7 % High 11.5 - 15.0 % [facility] Hematocrit (Bld) [Volume fraction] 31.4 % Low 39.0 - 51.0 % [facility] Hemoglobin (Bld) [Mass/Vol] 9.5 g/dL Low 13.0 - 17.0 g/dL [facility] Immature granulocytes (Bld) [#/Vol] 0.06 10*3/uL [facility] Immature granulocytes/100 WBC (Bld) 0.9 % [facility] Interpretation and review of laboratory results Abnormal [facility] Lymphocytes (Bld) [#/Vol] 0.71 10*3/uL Low [facility] Lymphocytes/100 WBC (Bld) 11.1 % [facility] MCH (RBC) [Entitic mass] 27.1 pg 26.0 - 34.0 pg [facility] MCHC (RBC) [Mass/Vol] 30.3 g/dL Low 30.5 - 36.0 g/dL [facility] MCV (RBC) [Entitic vol] 89.5 fL 80.0 - 100.0 fL [facility] Monocytes (Bld) [#/Vol] 0.53 10*3/uL [facility] Monocytes/100 WBC (Bld) 8.3 % [facility] Neutrophils (Bld) [#/Vol] 4.98 10*3/uL [facility] Neutrophils/100 WBC (Bld) 78.2 % [facility] Nucleated RBC (Bld) [#/Vol] 0.03 10*3/uL High [facility] Nucleated RBC/100 WBC (Bld) [Ratio] 0.5 % /100 WBC [facility] Ovalocytes LM Ql (Bld) Few [facility] Platelet mean volume (Bld) [Entitic vol] 9.7 fL 9.0 - 12.7 fL [facility] Platelets (Bld) [#/Vol] 188 10*3/uL [facility] Comment on above: No clot detected. Platelets Estimate (Bld) [#/Vol] Adequate [facility] Polychromasia LM Ql (Bld) Slight [facility] RBC (Bld) [#/Vol] 3.51 10*6/uL Low 4.20 - 6.0 0 m/uL [facility] RBC Fragments Few Abnormal None Seen [facility] Red Cell Morph Reviewed: see result s of individual morphologies [facility] WBC (Bld) [#/Vol] 6.38 10*3/uL [facility] This is an appended report. These results have been appended to a previously verified report. [facility] RETICULOCYTE COUNTon 024 Reticulocytes (Bld) [#/Vol] 0.133 10*3/uL High [facility] Reticulocytes (Bld) [#/Vol]o n 01-15-2024 Interpretation and review of laboratory results Abnormal [facility] Reticulocytes/100 RBC (Bld) 3.8 % High 0.4 - 2.0 % [facility] Basic metabolic 2000 panelon 10-05-2023 Anion gap [Moles/Vol] 9 mmol/L 8 - 15 mmol/L [facility] Calcium [Mass/Vol] 8.9 mg/dL 8.5 - 10. 2 mg/dL [facility] Chloride [Moles/Vol] 107 mmol/L 98 - 10 7 mmol/L [facility] CO2 [Moles/Vol] 25 mmol/L 22 - 30 mmol/L [facility] Creatinine [Mass/Vol] 1.10 mg/dL 0.73 - 1.22 mg/dL [facility] GFR/1.73 sq M.predicted among non-blacks MDRD (S/P/Bld) [Vol rate/Area] 73 mL/min/{1.73_m2} - PINF [facility] Comment on above: Estimated Glomerular Filtration Rate [...] [Mass/Vol] 83 mg/dL 74 - 99 mg/dL [facility] Comment on above: The [place] Diabete s Association (ADA) provides guidance for [...] Standards of Medical Care in Diabetes 2016, [place] Diabetes Association. Diabetes Care. 2016.39(Suppl 1). Interpretation and review of laboratory results Normal [facility] Potassium [Moles/Vol] 4.3 mmol/L 3.7 - 5.1 mmol/L [facility] Sodium [Moles/Vol] 141 mmol/L 136 - 144 mmol/L [facility] Urea nitrogen [Mass/Vol] 15 mg/dL 9 - 24 mg/dL [facility] LIPID PANEL, NONFASTINGon Cholesterol [Mass/Vol] 205 mg/dL High NINF - 200 mg/dL [facility] Comment on above: <200 mg/dL, Desirabl e 200-239 mg/dL, Borderline high >239 mg/dL, High HDL Cholesterol, Nonfasting 46 mg/dL 39 - PINF mg/dL [facility] Comment on above: 40-59 mg/dL, Accepta ble >59 mg/dL, High: Negative risk factor for coronary heart disease <40 mg/dL, Low: Positive risk factor for coronary heart disease Interpretation and review of laboratory results Abnormal [facility] LDL Cholesterol, Nonfasting 144 mg/dL High NINF - 100 mg/dL [facility] Comment on above: <100 mg/dL, Optimal 100-129 mg/dL, Near optimal/above optimal 130-159 mg/dL, Borderline high 160-189 mg/dL, High >189 mg/dL, Very high Secondary prevention optimal LDL Cholesterol levels are recommended to be < 70 mg/dL LDL/HDL Ratio, Nonfasting 3.13 mg/dL High NINF - 2.54 mg/dL [facility] Comment on above: Reference: 1. National Cholesterol Education Program ATP III Guideline At-A-Glance Quick Desk Reference: National Heart, Lung, and Blood [place]. National Institutes of Health. 2001: NIH Publication No. 01-3305. 2. An International Atherosclerosis Society position paper: global recommendations for the management of dyslipidemia: executive summary, Atherosclerosis. 2014: 232(2):410-413. Non HDL Cholesterol, Nonfasting 159 mg/dL High NINF - 130 mg/dL [facility] Comment on above: <130 mg/dL, Optimal 130-159 mg/dL, Near optimal/above optimal 160-189 mg/dL, Borderline high 190-219 mg/dL, High >219 mg/dL, Very high Secondary prevention optimal non HDL Cholesterol levels are recommended to be <100 mg/dL Total Chol/HDL Ratio, Nonfasting 4.46 mg/dL NINF - 5.10 mg/dL [facility] Triglycerides, Nonfasting 75 mg/dL NINF - 150 mg/dL [facility] Comment on above: <150 mg/dL, Normal 150-199 mg/dL, Borderline high 200-499 mg/dL, High >499 mg/dL, Very high VLDL Cholesterol, Nonfasting 15 mg/dL NINF - 30 mg/dL [facility] No Panel Informationon 10-04 [facility] Urinalysis complete panel (U )on 10-05-2023 Bacteria LM.HPF (Urine sed) [#/Area] Negative Negative /HPF [facility] Bilirubin Ql (U) Negative Negative [facility] Clarity (Unsp spec) Clear Clear [facility] Color (U) Yellow Yellow [facility] Epithelial cells LM.HPF (Urine sed) [#/Area] None Seen /HPF [facility] Glucose Test strip (U) [Mass/Vol] Negative Negative [facility] Hemoglobin Ql (U) Negative Negative [facility] Hyaline casts (Urine sed) [#/Area] 1-3 /LPF Abnormal 0 /LPF [facility] Interpretation and review of laboratory results Abnormal [facility] Ketones Ql (U) Negative Negative [facility] Leukocyte esterase Test strip Ql (U) Negative Negative [facility] Nitrite Ql (U) Negative Negative [facility] pH (U) 5.5 [pH] NINF - 8.5 [facility] Protein (U) [Mass/Vol] Negative Negative [facility] RBC LM.HPF (Urine sed) [#/Area] 0-2 /HPF 0-2 /HPF [facility] Specific gravity (U) [Rel density] 1.020 1.005 - 1.030 [facility] Urobilinogen Ql (U) 0.2 EU/dL 0.2-1.0 EU/dL [facility] WBC LM.HPF (Urine sed) [#/Area] 0-5 /HPF 0-5 /HPF [facility] This test was rome main and its performance characteristics determined by [facility]'s [facility] Pathology and Laboratory Medicine [place] ([facility]). It has not been cleared or approved by the FDA. [facility] is regulated under CLIA as qualified to perform high-complexity testing. This test is used for clinical purposes. It should not be regarded as investigational or for research. [facility] XR Chest PA and Lateralon IMPRESSION: Persistent bilateral pleural effusions. A follow-up exam is recommended. Airveyor Operator: MORGAN Transcribe Date/Time: Sep 15 2023 9:09A Dictated by : TA VERGARA MD This examination was interpreted and the report reviewed and electronically signed by: TA VERGARA MD on Sep 15 2023 9:10AM [facility] DIVISION OF RADIOLOGY * * *Final Report* [...] soft tissues: Unremarkable. DIVISION OF RADIOLOGY Provider, [facility] - 09/15/2023 * * *Final Report* * [...] pleural effusions. A follow-up exam is recommended. Airveyor Operator: MORGAN Transcribe Date/Time: Sep 15 2023 9:09A Dictated by : TA VERGARA MD This examination was interpreted and the report reviewed and electronically signed by: TA VERGARA MD on Sep 15 2023 9:10AM EST [facility] XR Chest PA and LateralOrder ed By: Ccf Provider on 09-15-2023 [facility] XR Chest PA and Lateralon Radiology Study observation (narrative) [facility] MR Thoracic spine WO and W c [...] crest and there are 5 lumbar-type vertebrae. Airveyor Operator: [facility] Transcribe Date/Time: Sep 10 2023 9:48A Dictated by : ROMERO ROCHA MD This examination was interpreted and the report reviewed and electronically signed by: ROMERO ROCHA MD on Sep 10 2023 10:00AM EST DIVISION OF RADIOLOGY * * *Final Report* * * DATE OF EXAM: Sep 10 2023 9:38AM [facility] 0326 - MRI THORACIC SPINE WO/W IVCON [...] T10-T11 facet joint. DIVISION OF RADIOLOGY Provider, [facility] - 09/10/2023 * * *Final Report* * * DATE OF EXAM: Sep 10 2023 9:38AM [facility] 0326 - MRI THORACIC SPINE WO/W IVCON [...] crest and there are 5 lumbar-type vertebrae. Airveyor Operator[facility] Transcribe Date/Time: Sep 10 2023 9:48A Dictated by : ROMERO ROCHA MD This examination was interpreted and the report reviewed and electronically signed by: ROMERO ROCHA MD on Sep 10 2023 10:00AM EST [facility] Radiology Study observation (narrative) [facility] MR Thoracic spine WO and W c ontrast IVOrdered By: Ccf Provider on 09-10-2023 [facility] NM Biliary ducts and Gallbla dder Views for patency of biliary structures and ejection fraction W sincalide and W radionuclide Leonila 06-28-2023 [facility] ANES POSTPROC EVALon 024 ANES POSTPROC EVAL HNO ID: [id number] Author: CONG CHEW MD Service: Anesthesiology Author Type: Physician Type: Anesthesia Postprocedure Evaluation Filed: 06/05/2023 14:44 Note Text: POST ANESTHESIA EVALUATION NOTE : 1955 Procedure Summary Date: 06/05/23 Room / Location: [facility] Anesthesia Start: 1342 Anesthesia Stop: 1435 Procedure: [...] Documentation SIGNATURE: Cong Chew MD PATIENT NAME: Jacob Landa DATE: June 05, 2023 TIME: 2:44 PM CSN: [id number] Normal [facility] ANES PRE-OPon 06-05-2023 ANES PRE-OP HNO ID: [id number] Author: CONG CHEW MD Service: Anesthesiology Author Type: Physician Type: Anesthesia Preprocedure Evaluation Filed: 06/05/2023 13:22 Note Text: ANESTHESIOLOGY DAY OF SURGERY NOTE : 1955 Procedure Information Date/Time: 06/05/23 1300 Scheduled providers: Amos Rangel MD Procedure: EGD - THERAPEUTIC, EUS, OR TUBE INTERVENTIONS Location: [facility] Estimated body mass index is 28.5 kg/m? as calculated from the following: Height as of this encounter: 175.3 cm (5' 9"). Weight as of this encounter: 87.5 kg (193 lb). Most recent hematocrit and potassium results: Hematocrit 42.2 02/13/2023 Potassium 4.0 02/13/2023 Relevant Problems CARDIO (+) Aortic valve stenosis (+) Coronary artery disease involving [place] coronary artery without angina pectoris (+) Essential [...] and consent discussed: yes. Patient / Responsible Democrat agrees to proceed: yes Patient / Surrogate [...] MIST) 0.65 % nasal spray Use 1 [place] in the nose as needed for cold/allergy [...] June 05, 2023 TIME: 1:21 PM CSN: [id number] Normal [facility] EGD Study observation Narrat iveon 06-05-2023 [facility] HISTORY PHYSICALon HISTORY PHYSICAL HNO ID: [id number] Author: ARUNA MENDEZ APRN.CNP Service: Nursing Author [...] Esophageal Adenocarcinoma (Hcc) Coronary Artery Disease Involving [place] Coronary Artery Without Angina Pectoris [place] (Actinic Keratosis) Medicare Annual Wellness Visit, Subsequent Pleural Effusion Advance Directive Discussed With Patient Medication Management Prostate Disorder Decreased Sexual Desire Piece Cutter's Nodules Primary Insomnia Pre-Op Exam Subjective CHIEF [...] of right wrist Coronary artery disease involving [place] coronary artery without angina pectoris Seeing Dr. 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 Normal [facility] SURGICAL PATHOLOGYon 024 CASE REPORT Normal [facility] Comment on above: Order Comment: Speci men Type: TISSUE SPECIMEN Ordering Facility: [facility] Address: [address] [place] [address] [place] [address] Result Comment: Surg ical Pathology Report Case: [id number] Authorizing Provider: Amos Rangel MD Collected: 06/05/2023 02:26 PM Ordering Location: [facility] Received: 06/06/2023 10:11 AM Pathologist: Angelica Hernandez MD Specimen: ESOPHAGOGASTRIC JUNCTION BIOPSY, @27 cm Performed By: #### S #### [facility] CLIA [id number] [address] [place] [address] FINAL DIAGNOSIS Normal [facility] Comment on above: Order Comment: Speci men Type: TISSUE SPECIMEN Ordering Facility: [facility] Address: [address] [place] [address] Result Comment: A. E sophagogastric junction at 27 cm, biopsy: -- Fragments of squamous epithelium with no significant histopathologic abnormalities. -- Detached strips of columnar surface and glandular epithelium with no significant histopathologic abnormalities; fragmentation precludes further evaluation. Performed By: #### S #### [facility] CLIA [id number] [address] [place] [address] FINAL PERFORMING LAB Normal [facility] Comment on above: Order Comment: Speci men Type: TISSUE SPECIMEN Ordering Facility: [facility] Address: [address] [place] [address] Result Comment: Diag nostic interpretation performed at [facility], [address] [place] [address] CLIA# [id number] Motor Vehicles Inspector: Nikita Ventura M.D. Performed By: #### S #### [facility] CLIA [id number] [address] [place] [address] GROSS DESCRIPTION Normal [facility] Comment on above: Order Comment: Speci men Type: TISSUE SPECIMEN Ordering Facility: [facility] Address: [address] [place] [address] Result Comment: A. E SOPHAGOGASTRIC JUNCTION BIOPSY Received in formalin labeled esophagogastric junction biopsy at 27 cm are multiple pieces of fitz[place], soft tissue aggregating to 1.1 x 0.3 x 0.1 cm. Totally submitted in one cassette. Gross examination performed at [facility], [address] [place] [address] CLIA# [id number] [facility] June 06, 2023 12:37 PM Performed By: #### S #### [facility] CLIA [id number] [address] [facility] [place] 06-05-2023 [place] [facility] Gastrointestinal Endoscopy Patient Name: Jacob Landa Procedure Date: 06/05/2023 1:20 PM Date of : 1955 Admit Type: Outpatient Room: [place] [address] Gender: Male Note Status: Finalized Attending MD: Amos Rangel MD, [id number] Procedure: [place] Indications: Abnormal abdominal PET [...] path results. Procedure Code(s): --- Professional --- 59516, Esophagogastroduodenoscopy , flexible, transoral; with endoscopic ultrasound examination limited to the esophagus, stomach or duodenum, and adjacent structures 91791, Esophagogastroduodenoscopy , flexible, transoral; with biopsy, single or multiple --- Technical --- 08991, Esophagogastroduodenoscopy , flexible, transoral; with endoscopic ultrasound examination limited to the esophagus, stomach or duodenum, and adjacent structures 03169, Esophagogastroduodenoscopy , flexible, transoral; with biopsy, single or multiple Diagnosis Code(s): --- Professional --- Z98.890, Other specified postprocedural states R93.5, Abnormal findings on diagnostic imaging of other abdominal regions, including retroperitoneum --- Technical --- Z98.890, Other specified postprocedural states R93.5, Abnormal findings on diagnostic imaging of other abdominal regions, including retroperitoneum CPT copyright 2020 [employer]. All rights reserved. The codes documented in this report are preliminary and upon orthopedic coder review may be revised to meet current compliance requirements. Attending Participation: I personally performed the entire procedure. Scope In: 1:48:55 PM Scope Out: 2:24:20 PM MD Amos Oneill MD 06/05/2023 2:35:39 PM This repor (more content not included)... Normal [facility] CNPNon 06-04-2023 CNPN Telephone (AGGASTACC ) -- SYEDAJACOB ([id number]) 1955 M Date Time Provider Department 06/04/23 [...] EUS, OR TUBE INTERVENTIONS [GI2] Order #: [id number] FUTURE Prescriptions as of 06/04/2023 - pantoprazole DR (PROTONIX) 40 mg tablet Take 1 tablet by mouth two times a day. - nortriptyline (PAMELOR) 10 mg capsule Take 1 capsule by mouth daily at bedtime. - sodium chloride (SALINE MIST) 0.65 % nasal spray Use 1 Byron in the nose as needed for cold/allergy [...] (HCC) [C15.9] 08/09/2020 Coronary artery disease involving [place] crisostomo* On tube feeding diet [Z78.9] 08/14/2020 01/13/2021 AK (actinic keratosis) [L57.0] 09/07/2020 Medicare annual wellness visit, subsequent [Z00*01/13/2021 Pleural effusion [J90] 03/11/2021 Advance directive discussed with patient [Z71.8*02/09/2022 Medication management [Z79.899] 02/09/2022 Prostate disorder [N42.9] 02/09/2022 Decreased sexual desire [F52.0] 02/09/2022 Piece Cutter's nodules [L28.1] 03/30/2023 Primary insomnia [F51.01] 03/30/2023 Encounter Status:Closed by CHRISTIANO TAYLOR on 06/04/23 [facility] ANES POSTPROC EVALon 024 ANES POSTPROC EVAL HNO ID: [id number] Author: LARRY ROONEY MD Service: Anesthesiology Author Type: Anesthesiologist Type: Anesthesia Postprocedure Evaluation Filed: 05/07/2023 09:04 Note Text: POST ANESTHESIA EVALUATION NOTE : 1955 Procedure Summary Date: 05/07/23 Room / Location: [facility] Anesthesia Start: 08 Anesthesia Stop: 838 Procedure: [...] May 07, 2023 TIME: 9:04 AM CSN: [id number] Normal [facility] ANES PRE-OPon 05-07-2023 ANES PRE-OP HNO ID: [id number] Author: LARRY ROONEY MD Service: Anesthesiology Author Type: Anesthesiologist Type: Anesthesia Preprocedure Evaluation Filed: 05/07/2023 07:39 Note Text: ANESTHESIOLOGY DAY OF SURGERY NOTE : 1955 Procedure Information Date/Time: 05/07/23 0800 Scheduled providers: Jurgen Bocanegra MD Procedure: EGD - THERAPEUTIC, EUS, OR TUBE INTERVENTIONS Location: [facility] Estimated body mass index is 29.65 kg/m? as calculated from the following: Height as of 05/01/23: 172.7 cm (5' 8"). Weight as of 05/01/23: 88.5 kg (195 lb). Most recent hematocrit and potassium results: Hematocrit 42.2 02/13/2023 Potassium 4.0 02/13/2023 Relevant Problems CARDIO (+) Aortic valve stenosis (+) Coronary artery disease involving [place] coronary artery without angina pectoris (+) Essential [...] and consent discussed: yes. Patient / Responsible Democrat agrees to proceed: yes Patient / Surrogate [...] MIST) 0.65 % nasal spray Use 1 Byron in the nose as needed for cold/allergy [...] May 07, 2023 TIME: 7:39 AM CSN: [id number] [facility] HISTORY PHYSICALon HISTORY PHYSICAL HNO ID: [id number] Author: JORDANA KINGSTON APRN.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 Service: Anesthesiology Author Type: Nurse Practitioner Type: H&P Filed: 05/07/2023 07:05 Note Text: HANDP completed 04/25/[address] Bocanegra. [facility] SURGICAL PATHOLOGYon 024 CASE REPORT [facility] Comment on above: Order Comment: Ehsan nunes Type: TISSUE SPECIMENOrdering Facility: [facility] Address: [address] [place] [address] Result Comment: Surg ica Pathology Report Case: [id number] Authorizing Provider: Jurgen Bocanegra MD Collected: 05/07/2023 08:24 AM Ordering Location: [facility] Received: 05/08/2023 12:48 PM Pathologist: José Miguel Eugene MD Specimen: ESOPHAGOGASTRIC JUNCTION RESECTION Performed By: #### S ####[facility] LABORATORYCLIA [id number] [place] [address] [place] FINAL DIAGNOSIS Normal [facility] Comment on above: Order Comment: Ehsan nunes Type: TISSUE SPECIMENOrdering Facility: [facility] Address: [address] [place] [address] Result Comment: A. E sophagogastric junction, biopsy: - Fragment of gastric-type glandular mucosa with mild chronic inflammation and separate fragments of esophageal squamous mucosa with no histopathologic abnormality. - There is no evidence of residual/recurrent adenocarcinoma, intestinal metaplasia or dysplasia. Performed By: #### S ####[facility] LABORATORYCLIA [id number] [address] FINAL PERFORMING LAB Normal [facility] Comment on above: Order Comment: Speci men Type: TISSUE SPECIMENOrdering Facility: [facility] Address: [address] [place] [address] Result Comment: Diag nostic interpretation performed at [facility], [address] [place] [address] CLIA# [id number] Motor Vehicles Inspector: Nikita Ventura M.D. Performed By: #### S ####[facility]ORATORYCLIA [id number] [address] GROSS DESCRIPTION Normal [facility] Comment on above: Order Comment: Speci men Type: TISSUE SPECIMENOrdering Facility: [facility] Address: [address] [place] [address] Result Comment: A. E SOPHAGOGASTRIC JUNCTION RESECTION Received in formalin labeled "esophagogastric junction" are 3 irregular fitzgerald soft tissue fragments aggregating to 0.3 x 0.3 x 0.2 cm. The specimen is submitted entirely in A1. Gross examination performed at [facility], [address] [place] [address] CLIA#[id number] OLS May 08, 2023 2:41 PM Performed By: #### S ####[facility] LABORATORYCLIA [id number] [address] OF [place] Upper GI endoscopyon 024 Upper GI endoscopy [facility] Gastrointestinal Endoscopy Patient Name: Jacob Landa Procedure Date: 05/07/2023 7:30 AM Date of : 1955 Admit Type: Outpatient Room: [facility] 21 Gender: Male Note Status: Finalized Attending MD: Jurgen Bocanegra MD, [id number] Procedure: Upper GI endoscopy Indications: Diagnostic procedure [...] antiplatelet agents. Procedure Code(s): --- Professional --- 20108, Esophagogastroduodenoscopy , flexible, transoral; with biopsy, single or multiple --- Technical --- 62100, Esophagogastroduodenoscopy , flexible, transoral; with biopsy, single or multiple CPT copyright 2020 [employer]. All rights reserved. The codes documented in this report are preliminary and upon orthopedic coder review may be revised to meet current compliance requirements. Attending Participation: I personally performed the entire procedure. Scope In: 8:18:27 AM Scope Out: 8:29:15 AM MD Jurgen Bennett MD 05/07/2023 8:42:29 AM This report has been signed electronically by Jurgen Bocanegra MD Number of Addenda: 0 Note Initiated On: 05/07/2023 7:30 AM Normal [facility] CNOVon 04-25-2023 CNOV Office Visit (AGGENS 3) -- JACOB LANDA ([id number]) 1955 M Date Time Provider Department 04/25/23 2:00 PM JURGEN BOCANEGRA3 During your visit today, we recorded the following information about you: Pulse Blood pressure Weight Height 91/minute 122/81 88.5 kg 1.727 m Jurgen Bocanegra MD 04/26/2023 4:22 PM Signed Jurgen Bocanegra M.D. Surgical Oncology 1 [facility], [facility] [address] [address] SUBJECTIVE HPI Jacob Landa is a 68 year old male presenting for evaluation of esophageal cancer. Patient presented with dysphagia which prompted an EGD in early 2020. This demonstrated a distal esophageal adenocarcinoma. His workup did not demonstrate any metastatic disease and he was felt to have T3 N1 cancer. This prompted chemoradiation which completed in June 23, 2020. He then underwent an [place] esophagectomy in August 2020 for which [...] of right wrist Coronary artery disease involving [place] coronary artery without angina pectoris Seeing Dr. 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 Normal [facility] CNPNon 04-18-2023 CNPN Telephone (IRRFV) -- JACOB LANDA ([id number]) 1955 M Date Time Provider Department 04/18/23 JESSICA MARTINES IRRFV During your visit today, we recorded [...] MIST) 0.65 % nasal spray Use 1 Byron in the nose as needed for cold/allergy [...] (HCC) [C15.9] 08/09/2020 Coronary artery disease involving [place] crisostomo* On tube feeding diet [Z78.9] 08/14/2020 01/13/2021 AK (actinic keratosis) [L57.0] 09/07/2020 Medicare annual wellness visit, subsequent [Z00*01/13/2021 Pleural effusion [J90] 03/11/2021 Advance directive discussed with patient [Z71.8*02/09/2022 Medication management [Z79.899] 02/09/2022 Prostate disorder [N42.9] 02/09/2022 Decreased sexual desire [F52.0] 02/09/2022 Piece Cutter's nodules [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0 % [facility] Hematocrit (Bld) [Volume fraction] 42.2 % 39.0 - 51.0 % [facility] Hemoglobin (Bld) [Mass/Vol] 13.6 g/dL 13.0 - 17.0 g/dL [facility] Immature granulocytes (Bld) [#/Vol] <0.10 k/uL [facility] Immature granulocytes/100 WBC (Bld) 0.4 % [facility] Lymphocytes (Bld) [#/Vol] 0.77 10*3/uL Low 1.00 - 4.00 k/uL [facility] Lymphocytes/100 WBC (Bld) 16.7 % [facility] MCH (RBC) [Entitic mass] 27.2 pg 26.0 - 34.0 pg [facility] MCHC (RBC) [Mass/Vol] 32.2 g/dL 30.5 - 36.0 g/dL [facility] MCV (RBC) [Entitic vol] 84.4 fL 80.0 - 100.0 fL [facility] Monocytes (Bld) [#/Vol] 0.40 10*3/uL <0.87 k/uL [facility] Monocytes/100 WBC (Bld) 8.7 % [facility] Neutrophils (Bld) [#/Vol] 3.22 10*3/uL 1.45 - 7.50 k/uL [facility] Neutrophils/100 WBC (Bld) 69.6 % [facility] Nucleated RBC (Bld) [#/Vol] <0.01 k/uL [facility] Nucleated RBC/100 WBC (Bld) [Ratio] 0.0 /100 WBC [facility] Platelet mean volume (Bld) [Entitic vol] 9.7 fL 9.0 - 12.7 fL [facility] Platelets (Bld) [#/Vol] 158 10*3/uL 150 - 400 k/uL [facility] RBC (Bld) [#/Vol] 5.00 10*6/uL 4.20 - 6.0 0 m/uL [facility] WBC (Bld) [#/Vol] 4.62 10*3/uL 3.70 - 11. 00 k/uL [facility] Comprehensive metabolic 2000 panelon 02-13-2023 Albumin [Mass/Vol] 3.9 g/dL 3.9 - 4.9 g/dL [facility] ALP [Catalytic activity/Vol] 84 U/L 38 - 113 U/L [facility] ALT [Catalytic activity/Vol] 13 U/L 10 - 54 U/L [facility] Anion gap [Moles/Vol] 7 mmol/L Low 9 - 18 mmol/L [facility] AST [Catalytic activity/Vol] 14 U/L 14 - 40 U/L [facility] Bilirubin [Mass/Vol] 0.6 mg/dL 0.2 - 1 .3 mg/dL [facility] Calcium [Mass/Vol] 9.0 mg/dL 8.5 - 10. 2 mg/dL [facility] Chloride [Moles/Vol] 104 mmol/L 97 - 10 5 mmol/L [facility] CO2 [Moles/Vol] 27 mmol/L 22 - 30 mmol/L [facility] Creatinine [Mass/Vol] 0.95 mg/dL 0.73 - 1.22 mg/dL [facility] Estimated Glomerular Filtration Rate 87 mL/min/1.73m >=60 mL/min/1.73m [facility] Glucose [Mass/Vol] 94 mg/dL 74 - 99 mg/dL [facility] Potassium [Moles/Vol] 4.0 mmol/L 3.7 - 5.1 mmol/L [facility] Protein [Mass/Vol] 6.5 g/dL 6.3 - 8.0 g/dL [facility] Sodium [Moles/Vol] 138 mmol/L 136 - 144 mmol/L [facility] Urea nitrogen [Mass/Vol] 12 mg/dL 9 - 24 mg/dL [facility] Basophil percentageOrdered B y: Angel Whitney on 11-15-2022 Bilirubin [Mass/Vol] 0.70 mg/dL 0.20-1.00 [facility] Comment on above: For patients on eltr ombopag therapy, use of Dimension Hye TBIL is not recommended. Cholesterol [Mass/Vol] 174 mg/dL <200 [facility] Comment on above: <200 mg/dL Desirable 200-240 mg/dL Borderline >240 mg/dL High Risk Protein [Mass/Vol] 6.9 g/dL 6.4-8.2 [facility] Triglyceride [Mass/Vol] 85 mg/dL <199 [facility] Comment on above: The drugs N-Acetylcy steine and Metamizole may falsely depress this assay.Serum Triglycerides Reference Interval Normal <150 mg/dL Borderline high 150 - 199 mg/dL High 200 - 499 mg/dL Very High > or = 500 mg/dL Direct bilirubinOrdered By: Angel Whitney on 11-15-2022 Bilirubin.direct [Mass/Vol] 0.18 mg/dL 0.00-0.30 [facility] Laboratory - Chemistry and C hemistry - challengeOrdered By: Angel Whitney on 11-15-2022 ALP [Catalytic activity/Vol] 89 U/L 45-117 [facility] ALT [Catalytic activity/Vol] 21 U/L 16-61 [facility] Globulin (S) [Mass/Vol] 3.6 g/dL 2.2-4.2 [facility] Serum or plasma albumin alisha urement (mass/volume)Ordered By: Angel Whitney on 11-15-2022 Albumin [Mass/Vol] 3.3 g/dL 3.2-5.0 [facility] Serum or plasma cholesterol in HDL measurement (mass/volume)Ordered By: Angel Whitney on 11-15-2022 Cholesterol in HDL [Mass/Vol] 53 mg/dL >40 [facility] Comment on above: The drugs N-Acetylcy steine and Metamizole may falsely depress this assay. Reference Range HDL <40 mg/dL Low HDL Cholesterol HDL >or= 60 mg/dL High HDL Cholesterol Serum or plasma cholesterol in VLDL measurement (mass/volume)Ordered By: Angel Whitney on 11-15-2022 Cholesterol in VLDL [Mass/Vol] 17 mg/dL 5-40 [facility] Serum or plasma low density lipoprotein (LDL) cholesterol measurement (mass/volume)Ordered By: Angel Whitney on 11-15-2022 Cholesterol in LDL [Mass/Vol] 104 mg/dL 0-130 [facility] Thin prep Papanicolaou smear with manual screeningOrdered By: Angel Whitney on 11-15-2022 Thin prep Papanicolaou smear with manual screening 15 U/L 15-37 [facility] EGD DIAGNOSTICon 08-02-2022 [facility] Basophil percentageOrdered B y: Dr. Danielle on 07-24-2022 Chloride [Moles/Vol] 108 mmol/L 98-107 [facility] Glucose [Mass/Vol] 97 mg/dL 74-106 [facility] Potassium [Moles/Vol] 3.9 mmol/L 3.5-5.1 [facility] Sodium [Moles/Vol] 138 mmol/L 136-145 [facility] Laboratory - Chemistry and C hemistry - challengeOrdered By: Dr. Danielle on 07-24-2022 CO2 [Moles/Vol] 27.0 mmol/L 21.0-32.0 [facility] Urea nitrogen/Creatinine [Mass ratio] 14.0 mg/mg 10-20 [facility] No Panel InformationOrdered By: Dr. Danielle on 07-24-2022 Estimated GFR (MDRD) Amer 96 mL/min >60 [facility] Comment on above: GFR Calc Estimated GFR (MDRD) Non-Af Amer 79 mL/min >60 [facility] Comment on above: Non- GFR Calc Prostate Specific Antigen Total 2.19 ng/mL 0.0-4.0 [facility] Comment on above: This test was perfor med using the TPSA assay method for Mithridion chemistry system. Values obtained with differentassay methods cannot be used interchangably.When changing PSA assays in the course of monitoring apatient, additional sequential testing should be carriedout to confirm baseline values. Serum or plasma calcium alisha urement (mass/volume)Ordered By: Dr. Danielle on 07-24-2022 Calcium [Mass/Vol] 8.7 mg/dL 8.5-10.1 [facility] Serum or plasma creatinine m easurement (mass/volume)Ordered By: Dr. Danielle on 07-24-2022 Creatinine [Mass/Vol] 1.00 mg/dL 0.70-1.30 [facility] Comment on above: The validity of the calculated GFR & GFRAA in patients over 70 years has not been determined. Clinical correlation is essential. Serum or plasma urea nitroge n measurement (mass/volume)Ordered By: Dr. Danielle on 07-24-2022 Urea nitrogen [Mass/Vol] 14 mg/dL 7-18 [facility] Thin prep Papanicolaou smear with manual screeningOrdered By: Dr. Danielle on 07-24-2022 Thin prep Papanicolaou smear with manual screening 3 5-15 [facility] Absolute lymphocyte countOrd ered By: ED PROVIDER on 06-23-2022 Lymphocytes Auto (Unsp spec) [#/Vol] 0.55 10*3/uL 0.83-4.51 [facility] Basophil percentageOrdered B y: ED PROVIDER on 06-23-2022 Basophil percentage 0-5 SEEN /hpf 0-5 [facility] Basophils/100 WBC (Bld) 0.3 % 0-1 [facility] Chloride [Moles/Vol] 106 mmol/L 98-107 [facility] Eosinophils/100 WBC (Bld) 0.4 % 0-5 [facility] Glucose [Mass/Vol] 115 mg/dL 74-106 [facility] Comment on above: Fasting Glucose resu lt from 100 to 125 mg/dL suggests IMPAIRED HOMEOSTASIS per A.D.A. criteria. Neutrophils (Bld) [#/Vol] 8.1 10*3/uL 2.0-7.7 [facility] Neutrophils/100 WBC (Bld) 85.0 % 47-70 [facility] Potassium [Moles/Vol] 4.6 mmol/L 3.5-5.1 [facility] Sodium [Moles/Vol] 140 mmol/L 136-145 [facility] WBC (Bld) [#/Vol] 9.5 10*3/uL 4.4-11.0 [facility] Basophil percentageOrdered B y: Dr. Roberts on 06-23-2022 Bilirubin [Mass/Vol] 1.10 mg/dL 0.20-1.00 [facility] Comment on above: For patients on eltr ombopag therapy, use of Dimension Hye TBIL is not recommended. Protein [Mass/Vol] 7.2 g/dL 6.4-8.2 [facility] Bilirubin Test strip Ql (U)O rdered By: ED PROVIDER on 06-23-2022 Bilirubin Ql (U) Negative Negative [facility] Blood erythrocytes count (nu mber/volume)Ordered By: ED PROVIDER on 06-23-2022 RBC (Bld) [#/Vol] 5.00 10*6/uL 4.6-6.2 [facility] Blood hemoglobin measurement (mass/volume)Ordered By: ED PROVIDER on 06-23-2022 Hemoglobin (Bld) [Mass/Vol] 13.4 g/dL 13.0-16.5 [facility] Blood lymphocytes/100 leukoc ytesOrdered By: ED PROVIDER on 06-23-2022 Lymphocytes/100 WBC (Bld) 5.8 % 19-41 [facility] Blood manual differential co mment interpretation (narrative result)Ordered By: ED PROVIDER on 06-23-2022 Manual differential comment Servando (Bld) [Interp] SCANNED [facility] Comment on above: LYMPHOPENIA Blood monocytes/100 leukocyt esOrdered By: ED PROVIDER on 06-23-2022 Monocytes/100 WBC (Bld) 8.1 % 0-10 [facility] Blood platelet mean volumeOr dered By: ED PROVIDER on 06-23-2022 Platelet mean volume (Bld) [Entitic vol] 9.8 fL 6.2-12.0 [facility] Determination of erythrocyte mean corpuscular volume (MCV)Ordered By: ED PROVIDER on 06-23-2022 MCV (RBC) [Entitic vol] 85.2 fL 80-94 [facility] Direct bilirubinOrdered By: Dr. Roberts on 06-23-2022 Bilirubin.direct [Mass/Vol] 0.28 mg/dL 0.00-0.30 [facility] Hematocrit Auto (Bld) [Volum e fraction]Ordered By: ED PROVIDER on 06-23-2022 Hematocrit (Bld) [Volume fraction] 42.6 % 40-54 [facility] Ketones Test strip Ql (U)Ord ered By: ED PROVIDER on 06-23-2022 Ketones Ql (U) 5 mg/dl Negative [facility] Laboratory - Chemistry and C hemistry - challengeOrdered By: Dr. Roberts on 06-23-2022 ALP [Catalytic activity/Vol] 113 U/L 45-117 [facility] ALT [Catalytic activity/Vol] 36 U/L 16-61 [facility] Globulin (S) [Mass/Vol] 3.6 g/dL 2.2-4.2 [facility] Lipase [Catalytic activity/Vol] 63 U/L 73-393 [facility] Laboratory - Chemistry and C hemistry - challengeOrdered By: ED PROVIDER on 06-23-2022 CO2 [Moles/Vol] 28.0 mmol/L 21.0-32.0 [facility] Urea nitrogen/Creatinine [Mass ratio] 10.7 mg/mg 10-20 [facility] Laboratory - Hematology and Cell countsOrdered By: ED PROVIDER on 06-23-2022 Erythrocyte distribution width (RBC) [Entitic vol] 44.3 fL 35.1-43.9 [facility] Erythrocyte distribution width (RBC) [Ratio] 14.4 % 11.6-14.6 [facility] Immature granulocytes/100 WBC (Bld) 0.400 % 0.0-0.9 [facility] Comment on above: IG% - Immature Granu locytes (promyelocytes, myelocytes and metamyelocytes) > 1% indicates that a LEFT SHIFT is Present. MCH (RBC) [Entitic mass] 26.8 pg 27.0-32.0 [facility] Nucleated RBC/100 WBC (Bld) [Ratio] 0 % 0-5 [facility] MCHC Auto (RBC) [Mass/Vol]Or dered By: ED PROVIDER on 06-23-2022 MCHC (RBC) [Mass/Vol] 31.5 g/dL 32-36 [facility] Mucus LM Ql (Urine sed)Order ed By: ED PROVIDER on 06-23-2022 Mucus Ql (Urine sed) 1+ /hpf [facility] Nitrite Test strip Ql (U)Ord ered By: ED PROVIDER on 06-23-2022 Nitrite Ql (U) Negative Negative [facility] No Panel InformationOrdered By: ED PROVIDER on 06-23-2022 Estimated Creatinine Clearance Calc 43.20 ml/min [facility] Estimated GFR (MDRD) Amer 52 mL/min >60 [facility] Comment on above: GFR Calc Estimated GFR (MDRD) Non-Af Amer 43 mL/min >60 [facility] Comment on above: Non- GFR Calc Platelets bldOrdered By: ED PROVIDER on 06-23-2022 Platelets (Bld) [#/Vol] 173 10*3/uL 150-450 [facility] Protein Test strip Ql (U)Ord ered By: ED PROVIDER on 06-23-2022 Protein Ql (U) 15 mg/dl Negative [facility] Serum or plasma albumin alisha urement (mass/volume)Ordered By: Dr. Roberts on 06-23-2022 Albumin [Mass/Vol] 3.6 g/dL 3.2-5.0 [facility] Serum or plasma calcium alisha urement (mass/volume)Ordered By: ED PROVIDER on 06-23-2022 Calcium [Mass/Vol] 9.5 mg/dL 8.5-10.1 [facility] Serum or plasma creatinine m easurement (mass/volume)Ordered By: ED PROVIDER on 06-23-2022 Creatinine [Mass/Vol] 1.69 mg/dL 0.70-1.30 [facility] Comment on above: The validity of the calculated GFR & GFRAA in patients over 70 years has not been determined. Clinical correlation is essential. Serum or plasma urea nitroge n measurement (mass/volume)Ordered By: ED PROVIDER on 06-23-2022 Urea nitrogen [Mass/Vol] 18 mg/dL 7-18 [facility] Squamous epithelial cells de tection in urine sediment by light microscopyOrdered By: ED PROVIDER on 06-23-2022 Epithelial cells.squamous LM Ql (Urine sed) 0 SEEN /hpf 0-5 [facility] Thin prep Papanicolaou smear with manual screeningOrdered By: Dr. Roberts on 06-23-2022 Thin prep Papanicolaou smear with manual screening 19 U/L 15-37 [facility] Thin prep Papanicolaou smear with manual screeningOrdered By: ED PROVIDER on 06-23-2022 Thin prep Papanicolaou smear with manual screening 6 5-15 [facility] Urine blood detectionOrdered By: ED PROVIDER on 06-23-2022 RBC Ql (U) 25 /ul Negative [facility] RBC Ql (U) 0 SEEN /hpf 0-5 [facility] Urine clarityOrdered By: ED PROVIDER on 06-23-2022 Clarity (U) Clear Clear [facility] Urine color determinationOrd ered By: ED PROVIDER on 06-23-2022 Color (U) Yellow Yellow [facility] Urine glucose detectionOrder ed By: ED PROVIDER on 06-23-2022 Glucose Ql (U) Normal mg/dl Normal [facility] Urine leukocyte esterase det ection by dipstickOrdered By: ED PROVIDER on 06-23-2022 Leukocyte esterase Test strip Ql (U) 25 /ul Negative [facility] Urine pHOrdered By: ED PROVI TRENA on 06-23-2022 pH (U) 5.0 [pH] 5.0 - 8.0 [facility] Urine sediment bacteria coun t by microscopy (number/high power field)Ordered By: ED PROVIDER on 06-23-2022 Bacteria LM.HPF (Urine sed) [#/Area] 0 /[HPF] None Seen [facility] Urine specific gravity measu rementOrdered By: ED PROVIDER on 06-23-2022 Specific gravity (U) [Rel density] 1.025 1.002-1.030 [facility] Urobilinogen Auto test strip Ql (U)Ordered By: ED PROVIDER on 06-23-2022 Urobilinogen Ql (U) Normal mg/dl Normal [facility] XR RIBS/CHEST 3V AP RIB/OBLS /CXR RIGHTon 06-09-2022 [facility] XR Ribs - right Views and Ch est PAon 06-09-2022 IMPRESSION: 1. No acute fracture 2. Bilateral pleural effusions. Left basilar atelectasis. Airveyor Operator: MORGAN Transcribe Date/Time: Jun 09 2022 3:18P Dictated by : JORDANA SEALS MD This examination was interpreted and the report reviewed and electronically signed by: JORDANA SEALS MD on Jun 09 2022 3:22PM [facility] DIVISION OF RADIOLOGY * * *Final Report* [...] No acute fracture. DIVISION OF RADIOLOGY Provider, [facility] - 06/09/2022 * * *Final Report* * [...] 2. Bilateral pleural effusions. Left basilar atelectasis. Airveyor Operator: PSCB Transcribe Date/Time: Jun 09 2022 3:18P Dictated by : JORDANA SEALS MD This examination was interpreted and the report reviewed and electronically signed by: JORDANA SEALS MD on Jun 09 2022 3:22PM EST [facility] Radiology Study observation (narrative) [facility] XR Ribs - right Views and Ch est PAOrdered By: Ccf Provider on 06-09-2022 [facility] No Panel Informationon 05-22 [facility] No Panel Informationon 02-20 [facility] EGD DIAGNOSTICon 11-09-2021 [facility] No Panel Informationon 10-03 [facility] EGD DIAGNOSTICon 09-07-2021 [facility] XR ABDOMEN APon 08-25-2020 XR ABDOMEN AP ORIGINAL XR ABDOMEN AP CLINICAL STATEMENT: j tube placement, please push contrast through j tube. COMPARISON: None FINDINGS: A realty specialist was obtained demonstrating no evidence of obstruction. Contrast was instilled with subsequent filling of the proximal jejunum. No free contrast demonstrated within the abdomen. IMPRESSION: Appropriately placed J-tube. I have personally reviewed the images of this examination and agree with the resident's findings and interpretation. Interpreted By: Nicolás Benoit DO Preliminary Report By: Kristin Huerta DO Electronically Signed By: Nicolás Benoit DO Dictated Date: 08/25/2020 5:47:51 PM Prelim Date: 08/25/2020 5:50:02 PM Sign Date: 08/25/2020 6:16:37 PM Ordering Provider:Momo Ortiz [facility] ([place]) CNOVon 07-14-2020 CNOV Office Visit (THOR ) -- JACOB LANDA ([id number]) 1955 M Date Time Provider Department 07/14/20 [...] a cardiac risk assessment from his primary motion picture critic and will then plan to see him back following completion of therapy for restaging and surgical planning. ? Plan: 1) Cards clearance from primary motion picture critic 2) RTC following completion of induction therapy [...] visit with restaging testing on July 09 [facility] or July [address] Chest/Abd/Pelvis Anticipated OR Date: 08/09/2020 MAIN TCI 08/06/2020 MAIN COVID 08/06/2020 MAIN ? Alisa Estrada RN ? Stress Test 06/25/2020 Conclusion: Normal exercise myocardial perfusion stress test at a moderate workload with no evidence of ischemia. Good functional capacity. No angina noted. ? OPD note 06/25/2020 Hem/Onc ? ? Referring Provider: RENETTA RADFORD [[id number]] Allergies As of Date: 07/14/2020 Noted Allergy [...] W/O GANGRENE (more content not included)... Normal [facility] CT ABD/PEL W IVCONon 021 CT ABD/PEL [...] chest CT performed will be reported separately. Feed Crusher (topogram) images: No additional findings. IMPRESSION: Stable exam. No metastatic disease in the abdomen or pelvis. Transcribed Using Voice Recognition Transcribe Date/Time: Jul 14 2020 3:58P Dictated by: BENITO ALBRIGHT MD This examination was interpreted and the report reviewed and electronically signed by: BENITO ALBRIGHT MD on Jul 14 2020 4:07PM EST [id number] [facility] CT CHEST W IVCONon CT CHEST W [...] No abnormality in the imaged upper abdomen. Feed Crusher (topogram) images: No additional findings. IMPRESSION: Mildly [...] Jul 15 2020 2:24PM EST [id number] Normal [facility] Echo 2D Doppler Coloron 11-2 TRANSTHORACIC ECHOCARDIOGRAM PATIENT: Jacob Landa STUDY DATE: 03/03/2020 : 1955 AGE: 64 HT/WT: 175.3 cm (69 118.8 kg in) (261.4 lb) GENDER: M BP: 108 / 60 LOCATION: [place] [address] [address] STATUS: *ORDERING PHYSICIAN: * 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 *READING PHYSICIAN: * Steve Washington MD, *BELLY DANCER: * Cory Masterson FACC [facility] INDICATIONS: S/p TAVR (Z95.2). CONCLUSIONS SUMMARY: 1. [...] range. Electronically signed by Steve Washington MD, [facility] 03/03/2020 14:59 Prior Signatures: [facility] Incoming Cardiology Results From [employer]/Pete - 03/03/2020 2:59 PM EST TRANSTHORACIC ECHOCARDIOGRAM PATIENT: Jacob Landa STUDY DATE: 03/03/2020 : 1955 AGE: 64 HT/WT: 175.3 cm (69 118.8 kg in) (261.4 lb) GENDER: M BP: 108 / 60 LOCATION: [place] [address] [address] STATUS: *ORDERING PHYSICIAN: * eVrn Harding *READING PHYSICIAN: * Steve Washington MD, *BELLY DANCER: * AlejaMegnery [facility] [address] INDICATIONS: S/p TAVR (Z95.2). CONCLUSIONS [...] range. Electronically signed by Steve Washington MD, [facility] 03/03/2020 14:59 Prior Signatures: [facility] Echo Complete w/wo Contrasto n 03-03-2020 Echo Complete w/wo Contrast Patient Name: JACOB LANDA Ultrasound Exam Date/Time 03/03/2020 13:45:46 EST Exam Echo Complete w/wo Contrast Ordering Physician CORRINE HARDING, VERN Accession Number [id number] Reason For Exam one yr post TAVR Report TRANSTHORACIC ECHOCARDIOGRAM PATIENT: Jacob Landa STUDY DATE: 03/03/2020 : 1955 AGE: 64 HT/WT: 175.3 cm (69 118.8 kg in) (261.4 lb) GENDER: M BP: 108 / 60 LOCATION: [place] [address] [address] STATUS: *ORDERING PHYSICIAN: * 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 *READING PHYSICIAN: * Steve Washington MD, *BELLY DANCER: * Cory Masterson [facility] INDICATIONS: S/p TAVR (Z95.2). CONCLUSIONS SUMMARY: [...] Signed by: MD. AMMON, STEVE GOODEN Normal [facility] Basic Metabolic Panelon Anion gap [Moles/Vol] 7 Normal [facility] Comment on above: Performed By: #### H MCKINLEY JAIN3 #### [facility] [address], [place] Calcium [Mass/Vol] 9.6 mg/dL Normal 8.4-10.4 [facility] Comment on above: Performed By: #### H MCKINLEY JAIN3 #### [facility] [address], [place] CO2 [Moles/Vol] 29 mmol/L Normal 22-30 [facility] Comment on above: Performed By: #### H MCKINLEY JAIN3 #### [facility] [address], [place] Glucose [Mass/Vol] 93 mg/dL Normal 70-100 [facility] Comment on above: Performed By: #### H SUSY BMP3 #### [facility] [address], [place] Urea nitrogen [Mass/Vol] 18 mg/dL Normal 7-20 [facility] Comment on above: Performed By: #### H SUSY BMP3 #### [place] [address] [address], [place] Creatinine [Mass/Vol] 1.23 mg/dL Normal 0.52-1.25 [facility] Comment on above: Performed By: #### H SUSY BMP3 #### [place] [address] [address], [place] GFR/1.73 sq M predicted among blacks MDRD (S/P/Bld) [Vol rate/Area] mL/min/{1.73_m2} Normal >60 [facility] Comment on above: Performed By: #### H SUSY BMP3 #### [place] [address] [address], [place] GFR/1.73 sq M predicted among non-blacks MDRD (S/P/Bld) [Vol rate/Area] 59.0 mL/min/{1.73_m2} Normal >60 [facility] Comment on above: Result Comment: Sour ce- MDRD equation with creatinine calibration to IDMS(NKDEP) eGFR not recommended for drug dose adjustment Performed By: #### H SUSY BMP3 #### [place] [address] [address], [place] Potassium [Moles/Vol] 4.5 mmol/L Normal 3.5-5.1 [facility] Comment on above: Performed By: #### H SUSY BMP3 #### [place] [address] [address], [place] Sodium [Moles/Vol] 138 mmol/L Normal 135-145 [facility] Comment on above: Performed By: #### H SUSY BMP3 #### [place] [address] [address], [place] Chloride [Moles/Vol] 102 mmol/L Normal 98-107 [facility] [employer] [facility] Comment on above: Performed By: #### H MCKINLEY JAIN3 #### [address] [address] Basic Metabolic PanelOrdered By: 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 on 04-16-2019 Anion gap [Moles/Vol] 7 mmol/L [facility] Work Phone: [phone] Calcium [Mass/Vol] 9.6 mg/dL 8.4 - 10. 4 mg/dL [facility] Work Phone: [phone] Chloride [Moles/Vol] 102 mmol/L 98 - 10 7 mmol/L [facility] Work Phone: [phone] CO2 [Moles/Vol] 29 mmol/L 22 - 30 mmol/L [facility] Work Phone: [phone] Creatinine [Mass/Vol] 1.23 mg/dL 0.52 - 1.25 mg/dL [facility] Work Phone: [phone] EGFR IF NonAfrican Peruvian 59.0 mL/min >60 [facility] Work Phone: [phone] Comment on above: Source- MDRD equatio n with creatinine calibration to IDMS(NKDEP) eGFR not recommended for drug dose adjustment GFR/1.73 sq M.predicted among blacks MDRD (S/P/Bld) [Vol rate/Area] mL/min/{1.73_m2} >60 mL/min [facility] Work Phone: [phone] Glucose [Mass/Vol] 93 mg/dL 70 - 100 mg/dL [facility] Work Phone: [phone] Potassium [Moles/Vol] 4.5 mmol/L 3.5 - 5.1 mmol/L [facility] Work Phone: [phone] Sodium [Moles/Vol] 138 mmol/L 135 - 145 mmol/L [facility] Work Phone: [phone] Urea nitrogen [Mass/Vol] 18 mg/dL 7 - 20 mg/dL [facility] Work Phone: [phone] Test Performed by [facility] [place] [address] [facility] Work Phone: CBCOrdered By: Vern rao on 04-16-2019 MCHC 33.4 % 32 - 36 % [facility] Work Phone: Test Performed by [facility], [address] [place] [address] [facility] Work Phone: ECHO Complete 2D W Doppler W ColorOrdered By: 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 on 04-16-2019 TRANSTHORACIC ECHOCARDIOGRAM PATIENT: Jacob Landa STUDY DATE: 04/16/2019 : 1955 AGE: 64 HT/WT: 175.3 cm (69 118.8 kg in) (261.4 lb) GENDER: M BP: 130 / 76 LOCATION: 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 [...] Ascending aorta ID/bsa, (more content not included)... [employer] Work Phone: [employer] Incoming Cardiology Results From Sh[facility]/Pete - 04/16/2019 5:09 PM EST TRANSTHORACIC ECHOCARDIOGRAM PATIENT: Jacob Landa STUDY DATE: 04/16/2019 : 1955 AGE: 64 HT/WT: 175.3 cm (69 118.8 kg in) (261.4 lb) GENDER: M BP: 130 / 76 LOCATION: [facility] PATIENT Outpatient Dulce Wolfe STATUS: Pavilion *ORDERING PHYSICIAN: * 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 *READING PHYSICIAN: * Cong Horton, *BELLY DANCER: * PARTH Shetty DO, 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 [...] ID, ES (L) (more content not included)... [employer] Work Phone: Echo Complete w/wo Contrasto n 04-16-2019 Echo Complete w/wo Contrast Patient Name: JACOB LANDA Ultrasound Exam Date/Time 04/16/2019 16:15:14 EST Exam Echo Complete w/wo Contrast Ordering Physician CORRINE HARDING MICHELLE Accession Number [id number] Reason For Exam TAVR Report TRANSTHORACIC ECHOCARDIOGRAM PATIENT: Jacob Landa STUDY DATE: 04/16/2019 : 1955 AGE: 64 HT/WT: 175.3 cm (69 118.8 kg in) (261.4 lb) GENDER: M BP: 130 / 76 LOCATION: 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 [...] Electronically signed by Cong Horton DO, FS, [facility] 04/16/2019 17:09 Prior Signatures: Final Dictated: 04/16/2019 5:09 pm Dictating Physician: DO HORTON JOSEPH Signed Date and Time: 04/16/2019 5:09 pm Signed by: DO HORTON JOSEPH Normal [facility] Hemogramon 04-16-2019 MCHC (RBC) [Mass/Vol] 33.4 % Normal 32.0-36.0 [facility] Comment on above: Performed By: #### H SUSY BMP3 #### [place] [address] [address], [place] HemogramOrdered By: 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 on 04-16-2019 Erythrocyte distribution width (RBC) [Ratio] 13.4 % Normal 11.5-14.5 [facility] Work Phone: Comment on above: Performed By: #### H EMOG, BMP3 #### [place] [address] [address], [place] Hematocrit (Bld) [Volume fraction] 43.2 % Normal 40.0-52.0 [facility] Work Phone: Comment on above: Performed By: #### H EMOG, BMP3 #### [address] Hemoglobin (Bld) [Mass/Vol] 14.4 g/dL Normal 13.0-18.0 [facility] Work Phone: Comment on above: Performed By: #### H EMOG, BMP3 #### [place] [address] [place], [place] MCH (RBC) [Entitic mass] 28.9 pg Normal 26.0-34.0 [facility] Work Phone: Comment on above: Performed By: #### H EMOFernando, BMP3 #### [employer] [facility] [address], [place] MCV (RBC) [Entitic vol] 86.7 fL Normal 80.0-98.0 [facility] Work Phone: Comment on above: Performed By: #### H EMOG, BMP3 #### [employer] [facility] [address], [place] Platelet mean volume (Bld) [Entitic vol] 8.3 fL Normal 7.4-10.4 [facility] Work Phone: Comment on above: Performed By: #### H EMOG, BMP3 #### [employer] [facility] [address], [place] Platelets (Bld) [#/Vol] 155 10*3/uL Normal 140-440 [facility] Work Phone: Comment on above: Performed By: #### H EMOG, BMP3 #### [employer] [facility] [address], [place] RBC (Bld) [#/Vol] 4.99 10*6/uL Normal 4.40-5.90 [facility] Work Phone: Comment on above: Performed By: #### H EMOG, BMP3 #### [employer] [facility] [address], [place] WBC (Bld) [#/Vol] 6.0 10*3/uL Normal 3.6-10.7 [facility] Work Phone: Comment on above: Performed By: #### H EMOG, BMP3 #### [employer] [facility] [address], [place] Op Noteon 03-13-2019 Op Note PATIENT: [...] symptomatic aortic valvular stenosis. Anesthesia: Conscious sedation. Casting Inspector: Tyshawn Magallanes Complications: None. Indications for Procedure: [...] radial artery and right femoral vein. A 6-Swedish sheath was placed in the right femoral vein through which a temporary pacing wire was advanced in the right ventricular apex where appropriate capture was documented. Sterile tubing was attached to the side port of the sheath. A 6-Swedish sheath was placed in the right radial artery through which a pigtail catheter was advanced in the aortic annulus for confirmation of implant angle. A 6-Swedish sheath was placed in the right femoral [...] to the recovery room. [employer] Job ID: [id number] Jp Zhao MD DOD:03/13/2019 12:41 P MADAN/chon DOT:03/13/2019 01:56 P Job Number: [id number] Document Number: [id number] cc: Tyshawn Magallanes MD [address] [facility] [address] [facility] [address] Jp Zhao MD [facility] [address] [facility] [address] [facility] [address] Normal [facility] Basic Metabolic Panelon 02-08 Anion gap [Moles/Vol] 7 mmol/L [place], [place] Calcium [Mass/Vol] 8.8 mg/dL 8.4 - 10. 4 mg/dL [place], [place] Chloride [Moles/Vol] 103 mmol/L 98 - 10 7 mmol/L [place] CO2 [Moles/Vol] 24 mmol/L 22 - 30 mmol/L [place] Creatinine [Mass/Vol] 1.26 mg/dL High 0.52 - 1.25 mg/dL [place], [place] EGFR IF NonAfrican [place]uvian 57.4 mL/min >60 [place] Comment on above: Source- MDRD equatio n with creatinine calibration to IDMS(NKDEP) eGFR not recommended for drug dose adjustment GFR/1.73 sq M predicted among blacks MDRD (S/P/Bld) [Vol rate/Area] mL/min/{1.73_m2} >60 mL/min [place] Glucose [Mass/Vol] 96 mg/dL 70 - 100 mg/dL [place] Interpretation and review of laboratory results Abnormal [place] Potassium [Moles/Vol] 4.2 mmol/L 3.5 - 5.1 mmol/L [place] Comment on above: Slightly hemolysed, interpret with caution. Sodium [Moles/Vol] 134 mmol/L Low 135 - 145 mmol/L [place] Urea nitrogen [Mass/Vol] 21 mg/dL High 7 - 20 mg/dL [place] Test Performed by [facility], [address] [place] [id number] [place], [place] CBCon 03-04-2019 Erythrocyte distribution width (RBC) [Ratio] 13.4 % 11.5 - 14.5 % [place] Hematocrit (Bld) [Volume fraction] 39.0 % Low 40 - 52 % [place] Hemoglobin (Bld) [Mass/Vol] 13.3 g/dL 13 - 18 g/dL [place] Interpretation and review of laboratory results Abnormal [place] MCH (RBC) [Entitic mass] 30.0 pg 26 - 34 pg [place] MCHC (RBC) [Mass/Vol] 34.0 % 32 - 36 % [place] MCV (RBC) [Entitic vol] 88.2 fL 80 - 98 fL [place] Platelet mean volume (Bld) [Entitic vol] 8.4 fL 7.4 - 10.4 fL [place] Platelets (Bld) [#/Vol] 149 10*3/uL 140 - 440 10*3/uL [place] RBC (Bld) [#/Vol] 4.42 10*6/uL 4.4 - 5.9 10*6/uL [place] WBC (Bld) [#/Vol] 6.9 10*3/uL 3.6 - 10.7 10*3/uL [place] Test Performed by [facility], [address] [place] [id number] [place] [address] ECHO Complete 2D W Doppler W Coloron 03-04-[address] [facility] Incoming Cardiology Results From [facility]/Pete - 03/04/2019 12:51 PM EST TRANSTHORACIC ECHOCARDIOGRAM PATIENT: Jacob Landa STUDY DATE: 03/04/2019 : 1955 AGE: 63 HT/WT: 175.3 cm (69 115 kg in) (253 lb) GENDER: M BP: 113 / 67 LOCATION: [facility] PATIENT Inpatient [facility] STATUS: *ORDERING PHYSICIAN: * 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 *READING PHYSICIAN: * Anderson *BELLY DANCER: * Justus Persaud RDCS, MD AE INDICATIONS: [...] Anderson Jerome MD 03/04/2019 12:50 Prior Signatures: [facility] TRANSTHORACIC ECHOCARDIOGRAM PATIENT: Jacob Landa STUDY DATE: 03/04/2019 : 1955 AGE: 63 HT/WT: 175.3 cm (69 115 kg in) (253 lb) GENDER: M BP: 113 / 67 LOCATION: [facility] PATIENT Inpatient [facility] STATUS: *ORDERING PHYSICIAN: * 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 *READING PHYSICIAN: * Anderson *BELLY DANCER: * Justus Persaud RDCS, MD AE INDICATIONS: [...] Anderson Jerome MD 03/04/2019 12:50 Prior Signatures: [employer] Basic Metabolic Panelon 02-08 Anion gap [Moles/Vol] 6 mmol/L [facility] [email or web address] Calcium [Mass/Vol] 8.9 mg/dL 8.4 - 10. 4 mg/dL [place] Chloride [Moles/Vol] 106 mmol/L 98 - 10 7 mmol/L [place] CO2 [Moles/Vol] 25 mmol/L 22 - 30 mmol/L [place] Creatinine [Mass/Vol] 1.16 mg/dL 0.52 - 1.25 mg/dL [place] EGFR IF NonAfrican [place]uvian >60.0 >60 mL/min [place] Comment on above: Source- MDRD equatio n with creatinine calibration to IDMS(NKDEP) eGFR not recommended for drug dose adjustment GFR/1.73 sq M predicted among blacks MDRD (S/P/Bld) [Vol rate/Area] mL/min/{1.73_m2} >60 mL/min [place] Glucose [Mass/Vol] 93 mg/dL 70 - 100 mg/dL [place] Potassium [Moles/Vol] 4.4 mmol/L 3.5 - 5.1 mmol/L [place] Sodium [Moles/Vol] 137 mmol/L 135 - 145 mmol/L [place] Urea nitrogen [Mass/Vol] 17 mg/dL 7 - 20 mg/dL [place] Test Performed by [facility], [address] [place] [id number] [place] [address] CBCon 03-03-2019 Erythrocyte distribution width (RBC) [Ratio] 13.8 % 11.5 - 14.5 % [place] Hematocrit (Bld) [Volume fraction] 39.4 % Low 40 - 52 % [place] Hemoglobin (Bld) [Mass/Vol] 13.4 g/dL 13 - 18 g/dL [place] Interpretation and review of laboratory results Abnormal [place] MCH (RBC) [Entitic mass] 29.5 pg 26 - 34 pg [place] MCHC (RBC) [Mass/Vol] 34.0 % 32 - 36 % [place] MCV (RBC) [Entitic vol] 87.0 fL 80 - 98 fL [place] Platelet mean volume (Bld) [Entitic vol] 8.2 fL 7.4 - 10.4 fL [facility], [place] Platelets (Bld) [#/Vol] 186 10*3/uL 140 - 440 10*3/uL [facility], [place] RBC (Bld) [#/Vol] 4.53 10*6/uL 4.4 - 5.9 10*6/uL [facility], [place] WBC (Bld) [#/Vol] 6.5 10*3/uL 3.6 - 10.7 10*3/uL [facility], [place] Test Performed by [facility], [address] [place] [id number] [place] [address] ECHO Limitedon 03-03-2019 [facility] Cardiology Results From [facility] - 03/03/2019 8:55 AM EST LIMITED TRANSTHORACIC ECHOCARDIOGRAM Perioperative - TAVR PATIENT: Jacob Landa STUDY DATE: 03/03/2019 : 1955 AGE: 63 HT/WT: 175.3 cm (69 116.6 kg in) (256.5 lb) GENDER: M BP: 112 / 79 LOCATION: [facility] PATIENT Inpatient [facility] STATUS: *ORDERING PHYSICIAN: * Tyshawn Magallanes MD *READING PHYSICIAN: * Steve Washington MD, [facility] *BELLY DANCER: * Lin THAYER INDICATIONS: Aortic Stenosis/ TAVR. [...] range. Electronically signed by Steve Washington MD, [facility] 03/03/2019 08:55 Prior Signatures: [facility], [place] LIMITED TRANSTHORACI C ECHOCARDIOGRAM Perioperative - TAVR PATIENT: Jacob Landa STUDY DATE: 03/03/2019 : 1955 AGE: 63 HT/WT: 175.3 cm (69 116.6 kg in) (256.5 lb) GENDER: M BP: 112 / 79 LOCATION: [facility] PATIENT Inpatient [facility] STATUS: *ORDERING PHYSICIAN: * Tyshawn Magallanes MD *READING PHYSICIAN: * Steve Washington MD, FACC *BELLY DANCER: * Lin Lnych RCS INDICATIONS: Aortic Stenosis/ TAVR. CONCLUSIONS SUMMARY: [...] range. Electronically signed by Steve Washington MD, [facility] 03/03/2019 08:55 Prior Signatures: [place] Potassium w/ Reflex to Susanna andrade 03-03-2019 Potassium [Moles/Vol] 4.7 mmol/L 3.5 - 5.1 mmol/L [place] Test Performed by [facility] [place] [address] [place], [place] Brain Natriuretic Peptideon 02-21-2019 Interpretation and review of laboratory results Abnormal [place] Natriuretic peptide B (Bld) [Mass/Vol] 180 pg/mL High 0 - 125 pg/mL [place] Test Performed by [facility], [facility] [place] [address] [place], [place] CBC Auto Differentialon 02-07 Erythrocyte distribution width (RBC) [Ratio] 13.3 % 11.5 - 14.5 % [place] Hematocrit (Bld) [Volume fraction] 43.5 % 40 - 52 % [place] Hemoglobin (Bld) [Mass/Vol] 14.7 g/dL 13 - 18 g/dL [place] MCH (RBC) [Entitic mass] 30.1 pg 26 - 34 pg [place] MCHC (RBC) [Mass/Vol] 33.7 % 32 - 36 % [place] MCV (RBC) [Entitic vol] 89.3 fL 80 - 98 fL [place] Platelet mean volume (Bld) [Entitic vol] 8.4 fL 7.4 - 10.4 fL [place] Platelets (Bld) [#/Vol] 256 10*3/uL 140 - 440 10*3/uL [place] RBC (Bld) [#/Vol] 4.87 10*6/uL 4.4 - 5.9 10*6/uL [place] WBC (Bld) [#/Vol] 8.7 10*3/uL 3.6 - 10.7 10*3/uL [place] Test Performed by [facility], [address] [place] [address] [facility], [place] CTA Chest Abdomen Pelvis W C [facility] 02-21-2019 Patient Name: JACOB LANDA ---CT--- Exam Date/Time 02/21/2019 09:52:28 EST Exam CTA Chest/Abdomen/Pelvis w/ + w/o contra Ordering Physician MD MAGALLANES PETER Accession Number [id number] CPT4 Codes Q9967 (CT ISOVUE 370MG/[id number]&[id number]) , 28882 (), 48403 () Reason For Exam TAVR Report [facility] Valve [facility] Cardiovascular CTA Indication: 63 year-old man with severe aortic stenosis, being evaluated for transcatheter aortic valve implantation. Technique: Computed tomography of the heart, thoracoabdominal aorta, and iliofemoral system was performed using a [employer] Aquilion One 320 detector scanner. Images were [...] pattern of right coronary dominance. There severe [place] coronary atherosclerosis. Prior RCA stenting. A MCKEON [...] severely calcified. Predicted deployment angle (3-cusp view): SERBIAN 10, BOTTLE HOP 7 Aortic Annulus: Dimensions: 3.03 x 2.06 [...] GOODEN Transcribed Date and Time: 02/21/2019 1:52 [facility] Incoming Radiology Results From [facility] - 02/21/2019 2:18 PM EST Patient Name: JACOB LANDA ---CT--- Exam Date/Time 02/21/2019 09:52:28 EST Exam CTA Chest/Abdomen/Pelvis w/ + w/o contra Ordering Physician MD MAGALLANES PETER Accession Number [id number] CPT4 Codes Q9967 (CT ISOVUE 370MG/ML&[id number]&[id number]) , 18441 (), 18908 () Reason For Exam TAVR Report [facility] Valve [facility] Cardiovascular CTA Indication: 63 year-old man with severe aortic stenosis, being evaluated for transcatheter aortic valve implantation. Technique: Computed tomography of the heart, thoracoabdominal aorta, and iliofemoral system was performed using a [employer] Aquilion One 320 detector scanner. Images were [...] pattern of right coronary dominance. There severe [place] coronary atherosclerosis. Prior RCA stenting. A MCKEON [...] severely calcified. Predicted deployment angle (3-cusp view): SERBIAN 10, BOTTLE HOP 7 Aortic Annulus: Dimensions: 3.03 x 2.06 [...] GOODEN Transcribed Date and Time: 02/21/2019 1:52 [place] Comprehensive Metabolic Pane sergei 02-21-2019 Albumin [Mass/Vol] 4.4 g/dL 3.5 - 5 g/dL [place] ALP [Catalytic activity/Vol] 66 U/L 38 - 126 U/L [place] ALT [Catalytic activity/Vol] 33 U/L 13 - 69 U/L [place] Anion gap [Moles/Vol] 12 mmol/L [place] AST [Catalytic activity/Vol] 27 U/L 15 - 46 U/L [place] Bilirubin Ql (U) 0.7 mg/dL 0.2 - 1.3 mg/dL [place] Calcium [Mass/Vol] 9.6 mg/dL 8.4 - 10. 4 mg/dL [place] Chloride [Moles/Vol] 100 mmol/L 98 - 10 7 mmol/L [place] CO2 [Moles/Vol] 27 mmol/L 22 - 30 mmol/L [place] Creatinine [Mass/Vol] 1.13 mg/dL 0.52 - 1.25 mg/dL [place] EGFR IF NonAfrican Peruvian >60.0 >60 mL/min [place] Comment on above: Source- MDRD equatio n with creatinine calibration to IDCO(NKDEP) eGFR not recommended for drug dose adjustment GFR/1.73 sq M predicted among blacks MDRD (S/P/Bld) [Vol rate/Area] mL/min/{1.73_m2} >60 mL/min [place] Glucose [Mass/Vol] 60 mg/dL Low 70 - 100 mg/dL [place] Interpretation and review of laboratory results Abnormal [place] Potassium [Moles/Vol] 3.1 mmol/L Low 3.5 - 5.1 mmol/L [place] Protein [Mass/Vol] 7.6 g/dL 6.3 - 8.2 g/dL [place] Sodium [Moles/Vol] 138 mmol/L 135 - 145 mmol/L [place] Urea nitrogen [Mass/Vol] 16 mg/dL 7 - 20 mg/dL [place] Test Performed by [facility], [address] [place] [address] [place], [place] Manual Differentialon 2018 Absolute Baso # 0.0 10*3/uL 0 - 0.2 10*3/uL [facility] Absolute Eos # 0.3 10*3/uL 0 - 0.5 10*3/uL [facility] Absolute Lymph # 2.0 10*3/uL 1.1 - 4.5 10*3/uL [facility] Absolute Greer # 1.0 10*3/uL 0.2 - 1.1 10*3/uL [facility] Absolute Neut # 5.4 10*3/uL 2.2 - 8.2 10*3/uL [facility] Anisocytosis Ql (Bld) Slight [facility] Bands 0 % 0 - 3 % [facility] Basophils 0 % 0 - 2 % [facility] Eosinophils 4 % 1 - 6 % [facility] Interpretation and review of laboratory results Abnormal [place] Lymphocytes 23 % 20 - 40 % [facility] Microcytosis Slight [facility] Monocytes 11 % High 2 - 10 % [facility] Poikilocytes Slight [place] RBC morphology finding Nom (Bld) ABNORMAL [place] Seg Neutrophils 62 % 40 - 80 % [facility] [place] TOTAL CELLS COUNTED 100 [place] Test Performed by [facility], [address] [place] [address] [facility] Protime/INR & PTTon 02-22-20 19 aPTT Coag (Bld) [Time] 25.1 s 20 - 30.5 s [place] Comment on above: NOTE: The therapeuti c time for Heparin anticoagulation, based on Xa activity inhibition, is an APTT of 46-80 seconds. INR Coag (PPP) [Relative time] 1.0 {INR} [place] Comment on above: Recommended Anticoag ulant [...] [Time] 10.9 s 9 - 12 s [place] Comment on above: . Test Performed by [facility], [address] [place] [id number] [place] [address] TYPE AND SCREENon 02-21-2019 Sodium [Moles/Vol] Positive [place] Comment on above: Test Performed by [facility], [address] [place] [address] Sodium [Moles/Vol] A [place] Sodium [Moles/Vol] Negative [place] Comment on above: Test Performed by [facility], [address] [place] [address] Test Performed by [address] [address] [place] Urinalysison 02-21-2019 Appearance (U) Clear Clear [place] Bilirubin Urine Negative Negative mg/dL [place] Color (U) Colorless Lt. Yellow NA [place], [place] Glucose, Ur Normal Normal (<70) mg/dL [place] Ketones Ql (U) Negative Negative mg/dL [place] LEUKOCYTES, UA Negative Negative Diane/uL [place] Nitrite, Urine Negative Negative NA [place] Occult Blood,Urine Negative Negative mg/dL [place] pH (U) 5.0 [pH] [place] Protein (U) [Mass/Vol] Negative Negative mg/dL [facility] [place] Specific [place], Urine >1.030 [facility] EL Urobilinogen, Urine Normal Normal ( 0-1) mg/dL [facility] EL Test Performed by [facility], [address] [place] [address] [place] XR CHEST STANDARD (2 VW)on 04-23-2018 [employer], [place] Incoming Radiology Results From [facility] - 02/21/2019 12:07 PM EST Patient Name: JACOB LANDA ---Diagnostic Radiology--- Exam Date/Time 02/21/2019 12:06:38 EST Exam CR Chest PA/LAT Ordering Physician MOHINI TOSCANO MEGGAN Accession Number [id number] CPT4 Codes 23161 () Reason For Exam TAVR Report Indication: [...] ANTHONY Transcribed Date and Time: 02/21/2019 12:03 [facility] EL Patient Name: JACOB LANDA ---Diagnostic Radiology--- Exam Date/Time 02/21/2019 12:06:38 EST Exam CR Chest PA/LAT Ordering Physician MOHINI TOSCANO MEGGAN Accession Number [id number] CPT4 Codes 34074 () Reason For Exam TAVR Report Indication: [...] ANTHONY Transcribed Date and Time: 02/21/2019 12:03 [place] Basic Metabolic Panelon 02-07 Anion gap [Moles/Vol] 8 mmol/L [place] Calcium [Mass/Vol] 9.8 mg/dL 8.4 - 10. 4 mg/dL [place] Chloride [Moles/Vol] 103 mmol/L 98 - 10 7 mmol/L [place] CO2 [Moles/Vol] 28 mmol/L 22 - 30 mmol/L [place] Creatinine [Mass/Vol] 1.22 mg/dL 0.52 - 1.25 mg/dL [place] EGFR IF NonAfrican Peruvian 59.6 mL/min >60 [place] Comment on above: Source- MDRD equatio n with creatinine calibration to IDMS(NKDEP) eGFR not recommended for drug dose adjustment GFR/1.73 sq M predicted among blacks MDRD (S/P/Bld) [Vol rate/Area] mL/min/{1.73_m2} >60 mL/min [place] Glucose [Mass/Vol] 81 mg/dL 70 - 100 mg/dL [place] Potassium [Moles/Vol] 4.4 mmol/L 3.5 - 5.1 mmol/L [place] Sodium [Moles/Vol] 138 mmol/L 135 - 145 mmol/L [place] Urea nitrogen [Mass/Vol] 16 mg/dL 7 - 20 mg/dL [place] Test Performed by [facility], [address] [place] [address] [place] Activated Clotting Time (ACT ) POCT (Uploon 01-02-2019 ACT Coag (Bld) 175 Sec Normal [facility] Comment on above: Result Comment: Kourtney tment ranges and critical values established by Patient Care Services. All follow-up actions were taken by Patient Care Services. Performed By: #### 4 8054-1 ####[facility] POINT OF CARE Basic Metabolic Panelon 12-09 Anion gap [Moles/Vol] 9.0 mmol/L Normal 6.0-18.0 [facility] Comment on above: Performed By: #### 6 9405-9, 62171-2c7, 17284-8 ####[facility] [address] [place], [place] Calcium [Mass/Vol] 9.3 mg/dL Normal 8.9-10.3 [facility] Comment on above: Performed By: #### 6 9405-9, 28026-4w7, 44578-4 ####[facility] [address] [place], [place] Chloride [Moles/Vol] 106 mmol/L Normal 98-107 [facility] Comment on above: Performed By: #### 6 9405-9, 38569-0k6, 36095-8 ####[facility] [address] [place], [place] CO2 [Moles/Vol] 26 mmol/L Normal 22-32 [facility] Comment on above: Performed By: #### 6 9405-9, 44000-5v8, 07418-4 ####[facility] [address] [place], [place] Creatinine [Mass/Vol] 1.19 mg/dL Normal 0.60-1.30 [facility] Comment on above: Performed By: #### 6 9405-9, 30090-1f3, 73935-0 ####[facility] [address] [place], [place] Glucose [Mass/Vol] 98 mg/dL Normal 70-99 [facility] Comment on above: Result Comment: U pdated ADA Reference Range A normal fasting glucose concentration is less than 100 mg/dL. An impaired fasting glucose concentration is 100-125 mg/dL. A provisional diagnosis of diabetes mellitus can be made when a fasting glucose concentration is greater than 125 mg/dL. Performed By: #### 6 9405-9, 66034-3w9, 18614-1 ####[facility] [address] [place], [place] Potassium [Moles/Vol] 3.8 mmol/L Normal 3.6-5.1 [facility] Comment on above: Performed By: #### 6 9405-9, 80874-7m7, 08769-4 ####[place] [address] [place], [place] Sodium [Moles/Vol] 141 mmol/L Normal 136-145 [facility] Comment on above: Performed By: #### 6 9405-9, 45191-9l2, 27342-9 ####[place] [address] [place], [place] Urea nitrogen (BldV) [Mass/Vol] 13 mg/dL Normal 8-20 [facility] Comment on above: Performed By: #### 6 9405-9, 55051-9g5, 09670-9 ####[address] GFRaaon 01-01-2019 GFR/1.73 sq M predicted among blacks MDRD (S/P/Bld) [Vol rate/Area] mL/min/{1.73_m2} Normal [facility] Comment on above: Result Comment: The MDRD equation has not been validated for those over 70 years, women, patients with serious co-morbid conditions, or with extremes of body size, muscle mass of nutritional status. Performed By: #### 6 9405-9, 06286-9s9, 64686-1 ####[facility] [address] [place], [place] GFRbbon 01-01-2019 GFR/1.73 sq M predicted among non-blacks MDRD (S/P/Bld) [Vol rate/Area] mL/min/{1.73_m2} Normal [facility] Comment on above: Performed By: #### 6 9405-9, 22542-0b9, 92293-3 ####[facility] [address] [place], [place] Patient Summaryon 01-01-2019 Patient Summary PATIENT DISCHARGE INSTRUCTIONS If you are having an emergency and are not able to reach your physician, CALL 911 or go to the nearest emergency room and take this document with you. [facility] 01/01/19 13:40 [address] [place]. [address] PATIENT INFORMATION ------ Name: JACOB LANDA Address: [address] [place] [id number] Age: 63 Years Phone: [phone] : 1955 12:00 MRN: [id number] Sex: Male Race: White Ethnicity: Not Hispan/Lat Admitted From: [facility] Medical Service: Internal Medicine Nurse Unit/Bed: (ID) [facility] 5E55-57 Admit Date: 12/31/2018 10:30 PCP: Physician, PCP [...] Comment: We have called Dr. Wilson, your motion picture critic, and notified them the need for an [...] doses are changed, or new medications (including fgkm-plv-pxjdghy products) are added. Ask your doctor if [...] day. fluticasone nasal (Flonase 50 mcg Nasal Byron) 1 Byron(s) Nasal (Intranasal) once a day. hydroCHLOROthiazide 25 [...] Comment fluticasone nasal (Flonase 50 mcg Nasal Byron) 1 Byron(s) Nasal (Intranasal) once a day. Comment hydroCHLOROthiazide [...] stop taking Plavix unless approved by your Casting Inspector. If you have nitroglycerin, remember to carry [...] suicide hotline, anytime day or night, at 0-619-114-SGCM. Important information about accessing your health information through the [place] [facility] patient portal If you initiated the self-registration process for [facility] during your stay, please check your personal email for an invitation to enroll in [facility] and complete the steps outlined in the email. If you would prefer to enroll while in the hospital, ask a member of your care team. We would be happy to assist you. If you have already enrolled in [facility], go to [email or web address] to login and access your health information. Thank you for choosing [facility]. PATIENT EDUCATION Heart-Healthy Eating Plan Many factors [...] FOODS CAN I EAT? Grains Breads, including Swedish, white, savana, wheat, raisin, rye, oatmeal, and Welsh. Tortillas that are neither fried nor made with lard or trans fat. Low-fat rolls, including hotdog and hamburger buns and Nigerien muffins. Biscuits. Muffins. Waffles. Pancakes. Light popcorn. Whole-grain cereals. Flatbread. [place] toast. Pretzels. Breadsticks. Rusks. Low-fat snacks and crackers, including oyster, saltine, matzo, karan, animal, and rye. Rice and pasta, including brown rice and those that are made with whole wheat. Vegetables All vegetables. Fruits All fruits, but limit coconut. Meats and Other Protein Sources Lean, well-trimmed beef, veal, pork, and thomas. Chicken and turkey without skin. All fish [...] cooking, baking, salads, and as spreads. Other Warren powder. Coffee and tea. All seasonings and [...] cheese. Whole milk cheeses, including blue (donny), [place], Brie, Alexx, Peruvian, Havarti, Grenadian, cheddar, Camembert, and [place]. ?Whole or 2% milk that is liquid, [...] that has suet, meat fat, or shortening. Warren butter, hydrogenated oils, palm oil, coconut oil, [...] 01/02/2009 Document Revised: 04/16/2015 Document Reviewed: 09/17/2014 [employer] Interactive Patient Education ?2016 [employer]. Groin Surgical Site Care Refer to this [...] provider. Document Released: 11/27/2014 Document Reviewed: 11/27/2014 [employer] Interactive Patient Education ?2016 [employer]. Radial Site Care Refer to this sheet [...] 04/28/2011 Document Revised: 04/16/2015 Document Reviewed: 10/12/2014 [employer] Interactive Patient Education ?2016 [employer]. Coronary Angiogram With Stent Coronary angiography [...] including vitamins, herbs, eye drops, creams, and jgup-ntj-fgymchr medicines. ?Previous problems you or members of [...] 09/30/2003 Document Revised: 04/16/2015 Document Reviewed: 10/02/2013 ElseCabby[employer] Interactive Patient Education ?2016 [employer] Inc. Echocardiogram [...] including vitamins, herbs, eye drops, creams, and qury-eiz-zzkcttq medicines. ???Previous problems you or members of [...] Reviewed: 12/01/2013 Elsevier Interactive Patient Education ?2015 [employer]. PATIENT DISCHARGE INSTRUCTION Signature Page for: JACOB LANDA Date/Time: 01/01/2019 13:40:34 A Clinician has explained the information on my discharge instructions and has provided me with a copy. My questions have been answered to my satisfaction. Patient Signature Date/Time Responsible Party Date/Time Relationship to Patient _ Clinician Signature ____ Date/Time __ Normal [facility] Activated Clotting Time (ACT ) POCT (Uploon 12-31-2018 ACT Coag (Bld) [address] [facility] Comment on above: Result Comment: Kourtney tment ranges and critical values established by Patient Care Services. All follow-up actions were taken by Patient Care Services. Performed By: #### 4 8054-1 ####[facility] POINT OF CARE ACT Coag (Bld) [address] [facility] Comment on above: Result Comment: Kourtney tment ranges and critical values established by Patient Care Services. All follow-up actions were taken by Patient Care Services. Performed By: #### 6 9405-9, 81707-6e6, 72573-3, 29804-8 #### [facility] [address] [place], [place] ACT Coag (Bld) [address] [facility] Comment on above: Result Comment: Kourtney tment ranges and critical values established by Patient Care Services. All follow-up actions were taken by Patient Care Services. Performed By: #### 6 9405-9, 14847-0l8, 78100-7, 00769-8 #### [facility] [address] [place], [place] ACT Coag (Bld) [address] [facility] Comment on above: Result Comment: Kourtney tment ranges and critical values established by Patient Care Services. All follow-up actions were taken by Patient Care Services. Performed By: #### 6 9405-9, 63614-3q3, 10063-9, 89775-4 #### [facility] [address] [place], [place] BUNon 12-31-2018 Urea nitrogen (BldV) [Mass/Vol] 13 mg/dL Normal 8-20 [facility] Comment on above: Performed By: #### 6 9405-9, 78460-7n5, 10956-2, 56533-2 #### [facility] [address] [place], [place] Basic Metabolic Panelon - Anion gap [Moles/Vol] 9.0 mmol/L Normal 6.0-18.0 [facility] Comment on above: Performed By: #### 6 9405-9, 41735-3x1, 65372-1, 65672-4 #### [facility] [address] [place], [place] Calcium [Mass/Vol] 8.4 mg/dL Low 8.9-10.3 [facility] Comment on above: Performed By: #### 6 9405-9, 60113-7k9, 94929-3, 64953-3 #### [facility] [address] [place], [place] Chloride [Moles/Vol] 108 mmol/L High 98-107 [facility] Comment on above: Performed By: #### 6 9405-9, 39338-0n5, 98401-4, 86085-4 #### [facility] [address] [place], [place] CO2 [Moles/Vol] 26 mmol/L Normal 22-32 [facility] Comment on above: Performed By: #### 6 9405-9, 08753-4m1, 39504-1, 19734-7 #### [facility] [address] [place], [place] Creatinine [Mass/Vol] 0.54 mg/dL Low 0.60-1.30 [facility] Comment on above: Performed By: #### 6 9405-9, 21092-6o1, 39807-5, 61585-3 #### [facility] [address] [place], [place] Glucose [Mass/Vol] 74 mg/dL Normal 70-99 [facility] Comment on above: Result Comment: U pdated ADA Reference Range A normal fasting glucose concentration is less than 100 mg/dL. An impaired fasting glucose concentration is 100-125 mg/dL. A provisional diagnosis of diabetes mellitus can be made when a fasting glucose concentration is greater than 125 mg/dL. Performed By: #### 6 9405-9, 63611-7i3, 97585-5, 68966-8 #### [facility] [address] [place], [place] Potassium [Moles/Vol] 4.0 mmol/L Normal 3.6-5.1 [facility] Comment on above: Performed By: #### 6 9405-9, 60168-9i5, 24711-8, 40143-1 #### [facility] [address] [place], [place] Sodium [Moles/Vol] 143 mmol/L Normal 136-145 [facility] Comment on above: Performed By: #### 6 9405-9, 36775-0n7, 64286-4, 37405-2 #### [facility] [address] [place], [place] Urea nitrogen (BldV) [Mass/Vol] 8 mg/dL Normal 8-20 [facility] Comment on above: Performed By: #### 6 9405-9, 19582-2b8, 83658-9, 34659-5 #### [facility] [address] [place], [place] Calcium [Mass/Vol] 8.7 mg/dL Normal 8.5-10.6 [facility] Chloride [Moles/Vol] 94 mmol/L Low 98-107 [facility] CO2 [Moles/Vol] 36 mmol/L High 21-32 [facility] Creatinine [Mass/Vol] 0.76 mg/dL Normal 0.70-1.30 [facility] Glucose [Mass/Vol] 165 mg/dL High 70-99 [facility] Potassium [Moles/Vol] 3.7 mmol/L Normal 3.5-5.1 [facility] Sodium [Moles/Vol] 139 mmol/L Normal 136-145 [facility] Urea nitrogen (BldV) [Mass/Vol] 17 mg/dL Normal 7.0-18.0 [facility] Urea nitrogen/Creatinine [Mass ratio] 22 mg/mg Normal [facility] C-Reactive Proteinon 019 CRP [Mass/Vol] 257.7 mg/L High 0.0-9.0 [facility] CBCon 12-31-2018 Erythrocyte distribution width (RBC) [Entitic vol] 13.4 % Normal 11.0-14.8 [facility] Comment on above: Performed By: #### 6 9405-9, 55035-2p0, 42282-4, 84806-3 #### [facility] [address] [place], [place] Hematocrit (Bld) [Volume fraction] 38.4 % Low 39.0-49.0 [facility] Comment on above: Performed By: #### 6 9405-9, 09137-0i1, 99478-5, 59049-6 #### [facility] [address] [place], [place] Hemoglobin (Bld) [Mass/Vol] 13.3 g/dL Low 13.5-17.5 [facility] Comment on above: Performed By: #### 6 9405-9, 91736-5h6, 29588-4, 22507-7 #### [facility] [address] [place], [place] MCH (RBC) [Entitic mass] 30.4 Picograms Normal 27.0-34.0 [facility] Comment on above: Performed By: #### 6 9405-9, 22008-8b1, 96294-9, 97857-6 #### [facility] [address] [place], [place] MCHC (RBC) [Mass/Vol] 34.7 g/dL Normal 32.0-36.0 [facility] Comment on above: Performed By: #### 6 9405-9, 54357-9j4, 72361-0, 11397-9 #### [facility] [address] [place], [place] MCV (RBC) [Entitic vol] 87.7 fL Normal 80.0-97.0 [facility] Comment on above: Performed By: #### 6 9405-9, 76677-0n1, 97575-4, 24933-4 #### [facility] [address] [place], [place] Platelet mean volume (Bld) [Entitic vol] 8.8 fL Normal 6.2-12.1 [facility] Comment on above: Performed By: #### 6 9405-9, 19866-6u6, 11233-5, 20242-4 #### [facility] [address] [place], [place] Platelets (Bld) [#/Vol] 129 thou/mcL Low 142-424 [facility] Comment on above: Performed By: #### 6 9405-9, 78043-9k2, 12404-0, 78716-8 #### [place] [address] [place], [place] RBC (Bld) [#/Vol] 4.38 million/mcL Normal 4.30-5.70 [facility] Comment on above: Performed By: #### 6 9405-9, 83223-8u1, 89402-0, 82690-4 #### [facility] [address] [place], [place] WBC (Bld) [#/Vol] 4.8 thou/mcL Normal 4.6-10.2 [facility] Comment on above: Performed By: #### 6 9405-9, 29766-8y3, 13393-3, 13822-6 #### [facility] [address] [place], [place] CBC with Differentialon 12-09 Basophils (Bld) [#/Vol] 0.1 thou/mcL Normal 0.0-0.2 [facility] Basophils/100 WBC (Bld) 0.6 % Normal 0-3 [facility] Differential cell count method Nom (Bld) AUTOMATED DIFFERENTIAL Normal [facility] Eosinophils (Bld) [#/Vol] 0.5 thou/mcL High 0.0-0.4 [facility] Eosinophils/100 WBC (Bld) 4.0 % Normal 0-7 [facility] Lymphocytes (Bld) [#/Vol] 1.7 thou/mcL Normal 0.7-4.5 [facility] Lymphocytes/100 WBC (Bld) 14.5 % Normal 14-46 [facility] Monocytes (Bld) [#/Vol] 0.8 thou/mcL Normal 0.1-1.0 [facility] Monocytes/100 WBC (Bld) 6.6 % Normal 4-13 [facility] Neutrophils (Bld) [#/Vol] 8.9 thou/mcL High 1.5-7.8 [facility] Neutrophils/100 WBC (Bld) 74.3 % High 40-74 [facility] RBC morphology finding Nom (Bld) 1+ Normal [facility] Comment on above: Result Comment: POIK ILOCYTOSIS 2+ HYPOCHROMIA 2+ MICROCYTES Erythrocyte distribution width (RBC) [Entitic vol] 16.2 % High 11.7-15.0 [facility] Hematocrit (Bld) [Volume fraction] 17.4 % Low 34.0-50.0 [facility] Hemoglobin (Bld) [Mass/Vol] 5.8 g/dL Off scale low 11.5-17.0 [facility] Comment on above: Result Comment: RESU LTS VERIFIED AND CALLED TO/READ BACK BY REMBERTO CHRIS 12.31.18 @ 0520 BF. MCH (RBC) [Entitic mass] 25.8 Picograms Low 27.0-34.0 [facility] MCHC (RBC) [Mass/Vol] 33.2 g/dL Normal 32.0-36.0 [facility] MCV (RBC) [Entitic vol] 77.7 fL Low 80-98 [facility] Platelet mean volume (Bld) [Entitic vol] 8.1 fL Normal 7.5-11.2 [facility] Platelets (Bld) [#/Vol] 328 thou/mcL Normal 140-415 [facility] RBC (Bld) [#/Vol] 2.23 x(10)6/mcL Low 3.80-5.60 Mo [facility] WBC (Bld) [#/Vol] 12.0 thou/mcL High 4.0-10.5 [facility] Basophils (Bld) [#/Vol] 0.10 thou/mcL Normal 0.00-0.20 [facility] Comment on above: Performed By: #### 6 9405-9, 18577-8e3, 13449-4, 30539-3 #### [facility] [address], [place] Basophils/100 WBC (Bld) 0.8 % Normal 0.0-2.0 [facility] Comment on above: Performed By: #### 6 9405-9, 67561-9y9, 65290-4, 00577-7 #### [facility] [address], [place] Eosinophils (Bld) [#/Vol] 0.50 thou/mcL Normal 0.00-0.70 [facility] Comment on above: Performed By: #### 6 9405-9, 55823-5p2, 55330-4, 69486-8 #### [facility] [address], [place] Eosinophils/100 WBC (Bld) 5.4 % Normal 0.0-7.0 [facility] Comment on above: Performed By: #### 6 9405-9, 82819-6d1, 35811-9, 26494-1 #### [facility] [address], [place] Erythrocyte distribution width (RBC) [Entitic vol] 14.1 % Normal 11.0-14.8 [facility] Comment on above: Performed By: #### 6 9405-9, 64112-3f4, 13746-4, 59750-4 #### [facility] [address], [place] Hematocrit (Bld) [Volume fraction] 41.2 % Normal 39.0-49.0 [facility] Comment on above: Performed By: #### 6 9405-9, 24676-6o8, 79958-3, 14098-5 #### [facility] [address], [place] Hemoglobin (Bld) [Mass/Vol] 13.9 g/dL Normal 13.5-17.5 [facility] Comment on above: Performed By: #### 6 9405-9, 53478-3s9, 04110-8, 30472-5 #### [facility] [address], [place] Lymphocytes (Bld) [#/Vol] 1.50 thou/mcL Normal 1.00-4.80 [facility] Comment on above: Performed By: #### 6 9405-9, 65813-3l6, 29629-2, 56863-8 #### [facility] [address], [place] Lymphocytes/100 WBC (Bld) 17.8 % Low 22.0-44.0 [facility] Comment on above: Performed By: #### 6 9405-9, 12769-6v3, 84613-1, 93442-0 #### [facility] [address], [place] MCH (RBC) [Entitic mass] 32.1 Picograms Normal 27.0-34.0 [facility] Comment on above: Performed By: #### 6 9405-9, 80548-6n3, 79972-0, 65900-2 #### [facility] [address], [place] MCHC (RBC) [Mass/Vol] 33.8 g/dL Normal 32.0-36.0 [facility] Comment on above: Performed By: #### 6 9405-9, 98292-5h8, 30753-0, 68522-6 #### [facility] [address], [place] MCV (RBC) [Entitic vol] 95.1 fL Normal 80.0-97.0 [facility] Comment on above: Performed By: #### 6 9405-9, 90619-7u0, 44193-7, 91063-8 #### [facility] [address], [place] Monocytes (Bld) [#/Vol] 0.90 thou/mcL Normal 0.00-0.90 [facility] Comment on above: Performed By: #### 6 9405-9, 63440-7q2, 32993-3, 01311-1 #### [facility] [address], [place] Monocytes/100 WBC (Bld) 10.9 % Normal 0.0-12.0 [facility] Comment on above: Performed By: #### 6 9405-9, 42071-4j0, 81735-3, 00067-8 #### [facility] [address], [place] Neutrophils (Bld) [#/Vol] 5.40 thou/mcL Normal 1.80-7.70 [facility] Comment on above: Performed By: #### 6 9405-9, 22884-8y5, 56305-5, 61523-4 #### [address] Neutrophils/100 WBC (Bld) 65.1 % Normal 40.0-70.0 [facility] Comment on above: Performed By: #### 6 9405-9, 10536-2w4, 76884-5, 39710-3 #### [facility] [address], [place] Platelet mean volume (Bld) [Entitic vol] 9.2 fL Normal 6.2-12.1 [facility] Comment on above: Performed By: #### 6 9405-9, 24200-5r9, 82127-8, 93321-6 #### [facility] [address], [place] Platelets (Bld) [#/Vol] 210 thou/mcL Normal 142-424 [facility] Comment on above: Performed By: #### 6 9405-9, 76841-2l2, 41031-3, 22850-8 #### [facility] [address], [place] RBC (Bld) [#/Vol] 4.33 million/mcL Normal 4.30-5.70 [facility] Comment on above: Performed By: #### 6 9405-9, 47594-8l4, 41021-6, 98845-7 #### [facility] [address], [place] WBC (Bld) [#/Vol] 8.3 thou/mcL Normal 4.6-10.2 [facility] Comment on above: Performed By: #### 6 9405-9, 20783-6f7, 43285-4, 68493-7 #### [facility] [address], [place] Comprehensive Metabolic Pane sergei 12-31-2018 Albumin [Mass/Vol] 3.6 g/dL Normal 3.5-4.8 [facility] Comment on above: Performed By: #### 6 9405-9, 52900-0i3, 24106-4, 39204-2 #### [facility] [address], [place] ALP [Catalytic activity/Vol] 44 Units/L Normal 32-91 [facility] Comment on above: Performed By: #### 6 9405-9, 67580-7c2, 61593-4, 36327-4 #### [facility] [address], [place] ALT [Catalytic activity/Vol] 20 Units/L Normal 14-63 [facility] Comment on above: Performed By: #### 6 9405-9, 13562-7t2, 58910-9, 13151-1 #### [facility] [address], [place] Anion gap [Moles/Vol] 7.0 mmol/L Normal 6.0-18.0 [facility] Comment on above: Performed By: #### 6 9405-9, 53978-2r1, 34628-3, 54221-6 #### [facility] [address], [place] AST [Catalytic activity/Vol] 17 Units/L Normal 15-41 [facility] Comment on above: Performed By: #### 6 9405-9, 35067-9d8, 32996-3, 76640-9 #### [facility] [address], [place] Bilirubin [Mass/Vol] 1.2 mg/dL Normal 0.3-1.2 [facility] Comment on above: Performed By: #### 6 9405-9, 17701-6r2, 64101-7, 37281-4 #### [facility] [address], [place] Calcium [Mass/Vol] 9.0 mg/dL Normal 8.9-10.3 [facility] Comment on above: Performed By: #### 6 9405-9, 47694-0u3, 55004-5, 26549-2 #### [facility] [address], [place] Chloride [Moles/Vol] 109 mmol/L High 98-107 [facility] Comment on above: Performed By: #### 6 9405-9, 72919-8z8, 73968-6, 76563-2 #### [facility] [address], [place] CO2 [Moles/Vol] 24 mmol/L Normal 22-32 [facility] Comment on above: Performed By: #### 6 9405-9, 17580-9w2, 76595-9, 49262-8 #### [facility] [address], [place] Creatinine [Mass/Vol] 0.98 mg/dL Normal 0.60-1.30 [facility] Comment on above: Performed By: #### 6 9405-9, 43237-4v0, 70973-3, 85722-6 #### [facility] [address], [place] Glucose [Mass/Vol] 104 mg/dL High 70-99 [facility] Comment on above: Result Comment: U pdated ADA Reference Range A normal fasting glucose concentration is less than 100 mg/dL. An impaired fasting glucose concentration is 100-125 mg/dL. A provisional diagnosis of diabetes mellitus can be made when a fasting glucose concentration is greater than 125 mg/dL. Performed By: #### 6 9405-9, 02163-5h9, 73639-1, 17252-6 #### [facility] [address], [place] Potassium [Moles/Vol] 3.9 mmol/L Normal 3.6-5.1 [facility] Comment on above: Performed By: #### 6 9405-9, 90535-5s7, 79028-7, 37398-0 #### [facility] [address], [place] Protein [Mass/Vol] 6.0 g/dL Low 6.1-7.9 [facility] Comment on above: Performed By: #### 6 9405-9, 16416-7m1, 51246-7, 86027-2 #### [facility] [address], [place] Sodium [Moles/Vol] 140 mmol/L Normal 136-145 [facility] Comment on above: Performed By: #### 6 9405-9, 52673-9b0, 02873-7, 99665-9 #### [facility] [address], [place] Urea nitrogen (BldV) [Mass/Vol] 13 mg/dL Normal 8-20 [facility] Comment on above: Performed By: #### 6 9405-9, 31480-9u7, 50164-4, 00208-7 #### [facility] [address], [place] Creatinineon 12-31-2018 Creatinine [Mass/Vol] 0.94 mg/dL Normal 0.66-1.30 [facility] Comment on above: Performed By: #### 6 9405-9, 01602-0h7, 34969-0, 19010-6 #### [facility] [address], [place] Electrolyte Panelon 01-01-20 19 Anion gap [Moles/Vol] 12.0 mmol/L Normal 6.0-18.0 Mo [facility] Comment on above: Performed By: #### 6 9405-9, 01505-0r2, 08292-8, 78775-4 #### [facility] [address], [place] Chloride [Moles/Vol] 96 mmol/L Low 98-107 [facility] Comment on above: Performed By: #### 6 9405-9, 40200-0e3, 73335-7, 91637-3 #### [facility] [address], [place] CO2 [Moles/Vol] 23 mmol/L Normal 22-32 [facility] Comment on above: Performed By: #### 6 9405-9, 61976-1a1, 25968-5, 89622-8 #### [facility] [address], [place] Potassium [Moles/Vol] 4.1 mmol/L Normal 3.6-5.1 [facility] Comment on above: Performed By: #### 6 9405-9, 84715-7z6, 82852-8, 27384-3 #### [facility] [address], [place] Sodium [Moles/Vol] 131 mmol/L Low 136-145 [facility] Comment on above: Performed By: #### 6 9405-9, 82473-3q9, 48126-0, 66569-8 #### [facility] [address], [place] GFRaaon 12-31-2018 GFR/1.73 sq M predicted among blacks MDRD (S/P/Bld) [Vol rate/Area] mL/min/{1.73_m2} Normal [facility] Comment on above: Result Comment: The MDRD equation has not been validated for those over 70 years, women, patients with serious co-morbid conditions, or with extremes of body size, muscle mass of nutritional status. Performed By: #### 6 9405-9, 73275-5g3, 79335-0, 96469-3 #### [facility] [address], [place] GFR/1.73 sq M predicted among blacks MDRD (S/P/Bld) [Vol rate/Area] mL/min/{1.73_m2} Normal [facility] Comment on above: Result Comment: The MDRD equation has not been validated for those over 70 years, women, patients with serious co-morbid conditions, or with extremes of body size, muscle mass of nutritional status. Performed By: #### 6 9405-9, 84368-8p8, 83122-4, 29482-5 #### [facility] [address], [place] GFRbbon 12-31-2018 GFR/1.73 sq M predicted among non-blacks MDRD (S/P/Bld) [Vol rate/Area] mL/min/{1.73_m2} Normal [facility] Comment on above: Performed By: #### 6 9405-9, 26204-1h3, 02732-3, 60307-3 #### [facility] [address], [place] GFR/1.73 sq M predicted among non-blacks MDRD (S/P/Bld) [Vol rate/Area] 56 mL/min/{1.73_m2} Normal [facility] Comment on above: Performed By: #### 6 9405-9, 77267-6b2, 20543-4, 27535-7 #### [facility] [address], [place] Magnesium Levelon 12-31-2018 Magnesium [Mass/Vol] 1.5 mg/dL Low 1.8-2.4 [facility] Partial Thromboplastin Time (aPTT)on 12-31-2018 aPTT Coag (PPP) [Time] 74.4 Sec High 23.3-35.3 [facility] Comment on above: Order Comment: To be drawn (0600, 1400, 2200) while on heparin Result Comment: LAUREN CANCHOLA NOTE: OF OCTOBER 01, 2018,NEW NORMAL REFERENCE RANGE aPTT Coag (PPP) [Time] 51.1 Sec High 23.3-35.3 [facility] Comment on above: Order Comment: To be drawn (0600, 1400, 2200) while on heparin Result Comment: LAUREN CANCHOLA NOTE: OF OCTOBER 01, 2018,NEW NORMAL REFERENCE RANGE Sedimentation Rate rbcon ESR (Bld) [Velocity] 43 mm/h High 0-20 [facility] ESR (Bld) [Velocity] 30 mm/h High 0-15 [facility] Comment on above: Performed By: #### 6 9405-9, 74397-1w0, 26818-5, 63712-5 #### [facility] [address], [place] Test Result Ejection Fractio non 12-31-2018 Test Result Ejection Fraction Normal [facility] Test Result Ejection Fraction 55-60 Normal [facility] Troponin Ion 12-31-2018 Troponin I.cardiac [Mass/Vol] 0.11 ng/mL High <0.06 [facility] Comment on above: Performed By: #### 6 9405-9, 35065-0e2, 51669-5, 28298-9 #### [facility] [address], [place] Troponin I.cardiac [Mass/Vol] 0.10 ng/mL High <0.06 [facility] Comment on above: Performed By: #### 6 9405-9, 71411-3u4, 63148-6, 49203-2 #### [facility] [address], [place] Basic Metabolic Panelon 12-09 Anion gap [Moles/Vol] 8.0 mmol/L Normal 6.0-18.0 [facility] Comment on above: Performed By: #### 6 9405-9, 57890-3l1, 86675-3, 27203-7 #### [facility] [address], [place] Calcium [Mass/Vol] 9.4 mg/dL Normal 8.9-10.3 [facility] Comment on above: Performed By: #### 6 9405-9, 09568-3n7, 81503-0, 74559-9 #### [facility] [address], [place] Chloride [Moles/Vol] 109 mmol/L High 98-107 [facility] Comment on above: Performed By: #### 6 9405-9, 80299-3m4, 62711-9, 32773-3 #### [facility] [address], [place] CO2 [Moles/Vol] 26 mmol/L Normal 22-32 [facility] Comment on above: Performed By: #### 6 9405-9, 94654-9e4, 21969-7, 68158-6 #### [facility] [address], [place] Creatinine [Mass/Vol] 1.24 mg/dL Normal 0.60-1.30 [facility] Comment on above: Performed By: #### 6 9405-9, 25509-0y2, 54968-4, 27628-0 #### [facility] [address], [place] Glucose [Mass/Vol] 82 mg/dL Normal 70-99 [facility] Comment on above: Result Comment: U pdated ADA Reference Range A normal fasting glucose concentration is less than 100 mg/dL. An impaired fasting glucose concentration is 100-125 mg/dL. A provisional diagnosis of diabetes mellitus can be made when a fasting glucose concentration is greater than 125 mg/dL. Performed By: #### 6 9405-9, 36542-9y6, 71130-1, 14595-6 #### [facility] [address], [place] Potassium [Moles/Vol] 4.4 mmol/L Normal 3.6-5.1 [facility] Comment on above: Performed By: #### 6 9405-9, 84900-9p0, 83747-8, 91417-1 #### [facility] [address], [place] Sodium [Moles/Vol] 143 mmol/L Normal 136-145 [facility] Comment on above: Performed By: #### 6 9405-9, 01635-5i5, 32386-1, 47290-9 #### [facility] [address], [place] Urea nitrogen (BldV) [Mass/Vol] 12 mg/dL Normal 8-20 [facility] Comment on above: Performed By: #### 6 9405-9, 90445-2g4, 25605-9, 58953-7 #### [facility] [address], [place] ED Pat Toan 12-30-2018 ED Pat Edu [facility] [address] [place], [place] [address] Emergency Department Discharge Instructions JACOB [...] [facility] Name JACOB LANDA MRN (COL)-[id number] PLEASE READ THE FOLLOWING REGARDING YOUR MEDICATIONS [...] doses are changed, or new medications (including equc-qqi-zaucazv products) are added. If you have any [...] day. fluticasone nasal (Flonase 50 mcg Nasal Byron) 1 Byron(s) Nasal (Intranasal) once a day. hydroCHLOROthiazide 25 [...] Comment fluticasone nasal (Flonase 50 mcg Nasal Byron) 1 Byron(s) Nasal (Intranasal) once a day. Comment hydroCHLOROthiazide [...] UNTIL YOU TALK TO YOUR DOCTOR None [facility] [address] [place], [place] [address] Emergency Department Discharge Instructions Name: JACOB LANDA Current Date: 12/30/2018 18:05:49 : 1955 Primary Physician: Physician, PCP Unknown We would like to thank you for choosing [facility] for your emergency medical needs. We [...] and the health of those around you. [facility] offers many resources to help with smoking cessation. Call the [place] Tobacco Quit Line at 8-536-DDHTNOW ( ). High blood pressure: Your screening [...] deadly infections. Discuss this with your child's clinical data manager, or Public Health Department. Your family practice doctor can determine if you need pneumonia or flu vaccine. The [facility] Department can be reached at . Substance Abuse Program: Concerns with addiction to alcohol, benzodiazepines (Ativan or Xanax) and Opiates (Heroin, Percocet, OxyContin, Methadone or Fentanyl)? [facility] offers an inpatient Substance Abuse Program to help treat the symptoms associated with medical detoxification of addictive substances. The new program offers care for non- adults (18 and older) looking to break the chain to addictive chemicals. The Substance Abuse Program is a voluntary inpatient admission and it starts with a pre-screening phone call to a hospice social worker. During the call, goals and objectives for recovery and how the patient will transition to outpatient care will be established. Please call [phone] to get help today. Domestic Violence: If you are a victim of domestic violence (physical, verbal, or emotional), you are not alone. Discuss this with your physician or a friend and call the [place] Domestic Violence Hotline or [place] Domestic Violence Hotline for assistance and support. [...] physician, call the Physician Referral Line at [phone]-QBQY (1812). Suicide Hotline: Your mental and emotional well-being is important. If you are in a mental health crisis or are having thoughts of suicide, please call the nationwide suicide hotline, anytime day or night, at 9-271-034-ZODV (4074). Community Clinical Lab Clerk: You may be contacted by your local fire department for a follow up visit from a community batch blender. The community batch blender can help with a home safety check; follow up care, and general home care management. Pharmacy Information: Below is a list of 24 hour pharmacies that we are aware of. We suggest that you call the specific pharmacy for their hours before traveling to a location. Hours may vary on holidays. [facility] [place] [address], [place] [phone] [address], [place] [address] [phone] [address] [place], [place] [address] [phone] [address] [place], [place] [phone] [address], [place] [phone] [address] [place], [place] [phone] [place] [address] [phone] Take all medications as directed. If you need prescription assistance, contact the following agencies: ?? Partnership for Prescription Assistance at or www.pparx.org ?? [place] at or www.missouribestrx.org ?? www.GoodRx.[employer] is a site with many valuable coupons [...] Time Patient Signature Date Time Provider Signature [facility] GFRaaon 12-30-2018 GFR/1.73 sq M predicted among blacks MDRD (S/P/Bld) [Vol rate/Area] mL/min/{1.73_m2} [facility] Comment on above: Result Comment: The MDRD equation has not been validated for those over 70 years, women, patients with serious co-morbid conditions, or with extremes of body size, muscle mass of nutritional status. Performed By: #### 6 9405-9, 32912-7b5, 53140-3, 86123-3 #### [place] [address] GFRbbon 12-30-2018 GFR/1.73 sq M predicted among non-blacks MDRD (S/P/Bld) [Vol rate/Area] 59 mL/min/{1.73_m2} [facility] Comment on above: Performed By: #### 6 9405-9, 80495-5s4, 23053-2, 39289-2 #### [place] [address] [place], [place] Partial Thromboplastin Time (aPTT)on 12-30-2018 aPTT Coag (PPP) [Time] 26.5 Sec Normal 23.3-35.3 [facility] Comment on above: Result Comment: LAUREN CANCHOLA NOTE: OF OCTOBER 01, 2018,NEW NORMAL REFERENCE RANGE Performed By: #### 3 173-2, 5902-2 #### [address] Prothrombin Timeon 9 INR Coag (Bld) [Relative time] 1.09 {INR} Normal [facility] Comment on above: Result Comment: The recommended therapeutic INR range for most cardiac indications is 2.0-3.0. For high intensity therapy(ie.mechanical heart valves), the recommended range is 2.5-3.5. Performed By: #### 3 173-2, 5902-2 #### [address] PT Coag (PPP) [Time] 14.4 Sec Normal 11.9-14.7 [facility] Comment on above: Result Comment: LAUREN CANCHOAL NOTE: OF OCTOBER 01, 2018,NEW NORMAL REFERENCE RANGE Performed By: #### 3 173-2, 5902-2 #### [address] Troponin Ion 12-30-2018 Troponin I.cardiac [Mass/Vol] 0.11 ng/mL High <0.06 [facility] Comment on above: Performed By: #### 1 0839-9 #### [address] Troponin I.cardiac [Mass/Vol] 0.08 ng/mL High <0.06 [facility] Comment on above: Performed By: #### 6 9405-9, 61240-9w6, 27634-9, 62968-3 #### [address] XR Chest 2 Viewson 9 XR Chest 2 views EXAMINATION TYPE: XR Chest 2 Views DATE OF EXAM : 12/30/2018 1:49 PM HISTORY: Chest Pain , shortness of breath COMPARISON: NONE FINDINGS: Cardiac silhouette is within normal limits. There is no lung consolidation or pleural effusion. There are sternotomy wires. IMPRESSION: No acute abnormality [place] thanks you for the opportunity to care for your patient. Workstation ID: [id number] - [id number] FINAL REPORT Dictated By: Maximus Rogers MD 12/30/2018 13:55 Assigned Physician: Maximus Rogers MD Reviewed and Electronically Signed By: Maximus Rogers MD 12/30/2018 13:56 Transcribed by: HEATH 12/30/2018 13:55 Technologist: ELISE Normal [facility] MSCon 11-24-2017 [facility] REPORT Normal [facility] DATE OF SERVICE: 11/24/2017REASON FOR VISIT: Painful rash on the back.HISTORY OF PRESENT ILLNESS: This is a 62-year-old male presenting with an area ofpainful rash on the low back since yesterday. Patient stated that he had cellulitison his back about a month ago. At that time he was treated with 2 antibiotics. 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 BOBBY Zepeda/[id number]: 11/24/2017 11:08DT: 11/25/2017 06:31SSI File#: [id number] #: [id number]/Reviewed by12/17/17 1421 PAWPR [facility] PATIENT NAME: JACOB LANDA R[address] [address] MEDICAL REC #: [id number] [address] [facility] Basic Metabolic Profon 07-20 (cont.) [facility] Comment on above: Result Comment: Aver age GFR for 60-69 years old: 85 mL/min/1.73sq mChronic Kidney Disease: <60 mL/min/1.73sq mKidney failure: <15 mL/min/1.73sq meGFR calculated using average adult body mass. Additional eGFR calculator available at:http://www.[employer]/multiple_crcl_2011.htmPerformed at [facility] [address] [place] [address] Performed By: #### C DP, BMP, BNP, TROPI ####[facility] [place] [address] Anion gap 12 mmol/L Normal 9-17 [facility] Comment on above: Performed By: #### C DP, BMP, BNP, TROPI ####[place] [id number] [place] [address] BUN/CRE Ratio 13 Normal 9-20 [facility] Comment on above: Performed By: #### C DP, BMP, BNP, TROPI ####[place] [address] [facility] [address] [address] [place] [address] Calcium 9.3 mg/dL Normal 8.6-10.4 [facility] Comment on above: Performed By: #### C DP, BMP, BNP, TROPI ####[address] [place] [address] Chloride 103 mmol/L Normal 98-107 [facility] Comment on above: Performed By: #### C DP, BMP, BNP, TROPI ####[address] [place] [address] CO2 27 mmol/L Normal 20-31 [facility] Comment on above: Performed By: #### C DP, BMP, BNP, TROPI ####[place] [id number] [facility] [place] [address] Creatinine 1.20 mg/dL Normal 0.70-1.20 [facility] Comment on above: Performed By: #### C DP, BMP, BNP, TROPI ####[place] [address] [facility] [place] [address] eGFR (non-black) mL/min/{1.73_m2} Normal >60 [facility] Comment on above: Performed By: #### C DP, BMP, BNP, TROPI ####[address] [place] [address] Glucose mass conc 182 mg/dL High 70-99 [facility] Comment on above: Performed By: #### C DP, BMP, BNP, TROPI ####[facility] [facility] [place] [address] Potassium molar conc 3.7 mmol/L Normal 3.7-5.3 [facility] Comment on above: Performed By: #### C DP, BMP, BNP, TROPI ####[address] [place] [address] Sodium 142 mmol/L Normal 135-144 [facility] Comment on above: Performed By: #### C DP, BMP, BNP, TROPI ####[address] [place] [address] Urea nitrogen 16 mg/dL Normal 8-23 [facility] Comment on above: Performed By: #### C DP, BMP, BNP, TROPI ####[place] [address] [facility] [place] [address] Staging: NOT REPORTED Normal [facility] Comment on above: Performed By: #### C DP, BMP, BNP, TROPI ####[address] [place] [address] Brain Natri. Peptideon 07-20 BNP Normal [facility] Comment on above: Result Comment: Pro- BNP Reference Range:Rule Out: <300Grey Zone: Age <50 300-450 Age 50-75 300-900 Age >75 300-1800Usually represents mild to moderate HF but other cardiopulmonary causes cannot be ruled out.Rule In: Age <50 >450 Age 50-75 >900 Age >75 >1800Performed at [facility] [address] [facility] [place] [address] Performed By: #### C DP, BMP, BNP, TROPI ####[place] [id number] [facility] [place] [address] BNP 109 pg/mL Normal <300 [facility] Comment on above: Result Comment: Pro- BNP results cannot be compared to BNP results. Performed By: #### C DP, BMP, BNP, TROPI ####[place] [address] [facility] [place] [address] CBC with Diffon 07-20-2017 Abs. Basophil 0.00 k/uL Normal 0.0-0.2 [facility] Comment on above: Result Comment: Perf ormed at [facility] [address] [facility] [place] [address] Performed By: #### C DP, BMP, BNP, TROPI ####[place] [address] [facility] [place] [address] Abs.Neutrophil (Seg) 3.30 k/uL Normal 2.1-6.5 [facility] Comment on above: Performed By: #### C DP, BMP, BNP, TROPI ####[address] [place] [address] Auto Diff Performed YES Normal [facility] Comment on above: Performed By: #### C DP, BMP, BNP, TROPI ####[address] [place] [address] Basophils/100 WBC Auto (Bld) 1 % Normal 0-2 [facility] Comment on above: Performed By: #### C DP, BMP, BNP, TROPI ####[address] [place] [address] Eosinophils 0.10 10*3/uL Normal 0.0-0.4 [facility] Comment on above: Performed By: #### C DP, BMP, BNP, TROPI ####[place] [address] [facility] [place] [address] Eosinophils/100 leukocytes 2 % Normal 0-5 [facility] Comment on above: Performed By: #### C DP, BMP, BNP, TROPI ####[facility] [address] Erythrocyte distribution width Auto Ratio (RBC) 13.7 % Normal 12.1-15.2 [facility] Comment on above: Performed By: #### C DP, BMP, BNP, TROPI ####[place] [id number] [facility] [place] [address] Erythrocytes (RBC) 5.00 10*6/uL Normal 4.5-5.9 [facility] Comment on above: Performed By: #### C DP, BMP, BNP, TROPI ####[address] [place] [address] Hematocrit (HCT) 43.2 % Normal 41-53 [facility] Comment on above: Performed By: #### C DP, BMP, BNP, TROPI ####[address] [place] [address] Hemoglobin mass conc (Bld) 14.7 g/dL Normal 13.5-17.5 [facility] Comment on above: Performed By: #### C DP, BMP, BNP, TROPI ####[address] [place] [address] Lymphocytes 1.00 10*3/uL Normal 1.0-4.8 [facility] Comment on above: Performed By: #### C DP, BMP, BNP, TROPI ####[address] [place] [address] Lymphocytes/100 leukocytes 22 % Normal 13-44 [facility] Comment on above: Performed By: #### C DP, BMP, BNP, TROPI ####[place] [id number] [facility] [place] [address] MCH 29.4 pg Normal 26-34 [facility] Comment on above: Performed By: #### C DP, BMP, BNP, TROPI ####[facility] [place] [address] MCHC mass conc (RBC) 34.0 g/dL Normal 31-37 [facility] Comment on above: Performed By: #### C DP, BMP, BNP, TROPI ####[facility] [facility] [address] MCV 86.4 fL Normal 80-100 [facility] Comment on above: Performed By: #### C DP, BMP, BNP, TROPI ####[facility] [facility] [place] [address] Monocytes 0.30 10*3/uL Normal 0.0-1.0 [facility] Comment on above: Performed By: #### C DP, BMP, BNP, TROPI ####[place] [address] [facility] [address] Monocytes/100 leukocytes 5 % Normal 5-9 [facility] Comment on above: Performed By: #### C DP, BMP, BNP, TROPI ####[place] [address] [facility] [place] [address] Neutrophil (Seg) 70 % Normal 39-75 [facility] Comment on above: Performed By: #### C DP, BMP, BNP, TROPI ####[place] [address] [place] [address] Platelets 165 10*3/uL Normal 140-450 [facility] Comment on above: Performed By: #### C DP, BMP, BNP, TROPI ####[place] [address] [facility] [place] [address] WBC (Leukocytes) 4.6 10*3/uL Normal 3.5-11.0 [facility] Comment on above: Performed By: #### C DP, BMP, BNP, TROPI ####[place] [id number] [facility] [place] [address] Erythrocyte morphology NOT REPORTED Normal [facility] Comment on above: Performed By: #### C DP, BMP, BNP, TROPI ####[facility] [facility] [place] [address] Erythrocytes (RBC) NOT REPORTED Normal [facility] Comment on above: Performed By: #### C DP, BMP, BNP, TROPI ####[facility] [facility] [place] [address] Granulocytes/100 WBC (Bld) NOT REPORTED Normal 0.00-0.30 [facility] Comment on above: Performed By: #### C DP, BMP, BNP, TROPI ####[facility] [facility] [place] [address] Immature granulocytes #/vol (Bld) NOT REPORTED Normal 0 [facility] Comment on above: Performed By: #### C DP, BMP, BNP, TROPI ####[facility] [facility] [place] [address] Platelet mean volume (PMV) NOT REPORTED Normal 6.0-12.0 [facility] Comment on above: Performed By: #### C DP, BMP, BNP, TROPI ####[facility] [facility] [place] [address] Platelets NOT REPORTED Normal [facility] Comment on above: Performed By: #### C DP, BMP, BNP, TROPI ####[facility] [facility] [place] [address] WBC Morphology NOT REPORTED Normal [facility] Comment on above: Performed By: #### C DP, BMP, BNP, TROPI ####[facility] [facility] [place] [address] ED Noteon 07-20-2017 HIM IP Note OR Mid Wife Normal [facility] HIM IP Note OR Mid Wife Normal [facility] ED Provider Noteon 8 HIM IP Note OR Mid Wife Normal [facility] Troponinon 07-20-2017 Troponin I.cardiac mass conc Normal [facility] Comment on above: Result Comment: Refe rence Range: <0.03 Within reference range. 0.03-0.09 Possible myocardial damage.Repeat at appropriate intervals to rule out chronic elevation. >= 0.10 Indicative of myocardial damage.Patients with high levels of Biotin oral intake (i.e >5mg/day) may have falsely decreased Troponin T levels. Samples collected within 8 hours of biotin intake may require additional information for diagnosis.Performed at [facility] [address] [facility] [place] [address] Performed By: #### T ROPI ####[facility] [facility] [place] [address] Troponin T.cardiac mass conc ug/L Normal <0.03 [facility] Comment on above: Result Comment: Trop onin T results cannot be compared to Troponin-I results. Performed By: #### T ROPI ####[place] [address] [facility] [place] [address] Troponin I.cardiac mass conc Normal [facility] Comment on above: Result Comment: Refe rence Range: <0.03 Within reference range. 0.03-0.09 Possible myocardial damage.Repeat at appropriate intervals to rule out chronic elevation. >= 0.10 Indicative of myocardial damage.Patients with high levels of Biotin oral intake (i.e >5mg/day) may have falsely decreased Troponin T levels. Samples collected within 8 hours of biotin intake may require additional information for diagnosis.Performed at [facility] [address] [facility] [place] [address] Performed By: #### C DP, BMP, BNP, TROPI ####[facility] [facility] [place] [address] Troponin T.cardiac mass conc ug/L Normal <0.03 [facility] Comment on above: Result Comment: Trop onin T results cannot be compared to Troponin-I results. Performed By: #### C DP, BMP, BNP, TROPI ####[facility] [place] [address] XR CHEST (2 VW)on 07-20-2017 XR CHEST (2 VW) Chest, 2 views on 3 radiographs:CLINICAL HISTORY: Shortness of breath.COMPARISON: 07/15/2013.FINDINGS: Prior median sternotomy and CABG. Cardiomediastinal contour is within normal limits. No focal consolidative process, pulmonary edema, pleural effusion or pneumothorax. Osseous structures are intact.IMPRESSION: No acute cardiopulmonary process.Interpreted by:HUDSON Diasigned by:Benito Andre MD07/20/17inal result Normal [facility] Vital Signs Date Time Vital Sign Value Performing Clinician Curt morales 12-24-2024 09:43-0400 Body mass index (BMI) [Ratio] 21.32 kg/m2 Bobby 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: [facility] 12-24-2024 09:43-0400 Body temperature 98.01 [degF] 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: [facility] 12-24-2024 09:43-0400 Body weight 67.4 kg Bobby 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: [facility] 12-24-2024 09:43-0400 Diastolic blood pressure 72 mm[Hg] 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: [facility] 12-24-2024 09:43-0400 Heart rate 79 /min 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: [facility] 12-24-2024 09:43-0400 Respiratory rate 18 /min 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: [facility] 12-24-2024 09:43-0400 SaO2% (BldA) [Mass fraction] 98 % 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: [facility] 12-24-2024 09:43-0400 Systolic blood pressure 122 mm[Hg] Bobby Bruce BRANDON Work Phone: [facility] 11-14-2024 09:30-0400 Body height 175.[address] Yaw Yoder Work Phone: [facility] 11-14-2024 09:30-0400 Body mass index (BMI) [Ratio] 22.8 kg/m2 Dr. Yaw Singh MD Work Phone: [facility] 11-14-2024 09:30-0400 Body weight 70.[address] Yaw Yoder Work Phone: [facility] 11-07-2024 09:37-0400 Body mass index (BMI) [Ratio] 22.38 kg/m2 Richard Masci DO Work Phone: [facility] 11-07-2024 09:37-0400 Body temperature 97.11 [degF] Richard Masci DO Work Phone: [facility] 11-07-2024 09:37-0400 Body weight 70.76 kg Richard Masci DO Work Phone: [facility] 11-07-2024 09:37-0400 Diastolic blood pressure 71 mm[Hg] Richard Masci DO Work Phone: [facility] 11-07-2024 09:37-0400 Heart rate 87 /min Richard Masci DO Work Phone: [facility] 11-07-2024 09:37-0400 SaO2% (BldA) [Mass fraction] 95 % Richard Masci DO Work Phone: [facility] 11-07-2024 09:37-0400 Systolic blood pressure 111 mm[Hg] Richard Masci DO Work Phone: [facility] 10-23-2024 14:53-0400 Body height 177.8 cm Delicia Díaz MD Work Phone: [facility] 10-23-2024 14:53-0400 Body mass index (BMI) [Ratio] 23.02 kg/m2 Delicia Díaz MD Work Phone: [facility] 10-23-2024 14:53-0400 Body weight 72.76 kg Delicia Díaz MD Work Phone: [facility] 10-23-2024 14:53-0400 Diastolic blood pressure 62 mm[Hg] Delicia Díaz MD Work Phone: [facility] 10-23-2024 14:53-0400 Heart rate 83 /min Delicia Díaz MD Work Phone: [facility] 10-23-2024 14:53-0400 Respiratory rate 21 /min Delicia Díaz MD Work Phone: [facility] 10-23-2024 14:53-0400 SaO2% (BldA) [Mass fraction] 95 % Delicia Díaz MD Work Phone: [facility] 10-23-2024 14:53-0400 Systolic blood pressure 112 mm[Hg] Delicia Díaz MD Work Phone: [facility] 10-15-2024 09:21-0400 Body height 175.[address] Yaw Yoder Work Phone: [facility] 10-15-2024 09:21-0400 Body weight 73.[address] Yaw Yodre Work Phone: [facility] 10-14-2024 09:21-0400 Body mass index (BMI) [Ratio] 23.8 kg/m2 Dr. Yaw Singh MD Work Phone: [facility] 10-07-2024 12:33-0400 Body mass index (BMI) [Ratio] 23.1 kg/m2 Usha Mcgovern PA-C Work Phone: [facility] 10-07-2024 12:33-0400 Body temperature 97.2 [degF] Usha Troncoso Work Phone: [facility] 10-07-2024 12:33-0400 Body weight 73.03 kg Usha Mcgovern PA- C Work Phone: [facility] 10-07-2024 12:33-0400 Diastolic blood pressure 60 mm[Hg] Usha Mcgovern PA-C Work Phone: [facility] 10-07-2024 12:33-0400 Heart rate 88 /min Usha Mcgovern PA- C Work Phone: [facility] 10-07-2024 12:33-0400 Respiratory rate 18 /min Usha Mcgovern PA- C Work Phone: [facility] 10-07-2024 12:33-0400 Systolic blood pressure 98 mm[Hg] Usha Mcgovern PA-C Work Phone: [facility] 09-22-2024 07:26-0400 Body mass index (BMI) [Ratio] 22.96 kg/m2 Yaw Singh MD Work Phone: [facility] 09-22-2024 07:26-0400 Body weight 72.58 kg Yaw Singh MD Work Phone: [facility] 09-22-2024 07:26-0400 Diastolic blood pressure 68 mm[Hg] Yaw Singh MD Work Phone: [facility] 09-22-2024 07:26-0400 Heart rate 104 /min Yaw Singh MD Work Phone: [facility] 09-22-2024 07:26-0400 Respiratory rate 18 /min Yaw Singh MD Work Phone: [facility] 09-22-2024 07:26-0400 SaO2% (BldA) [Mass fraction] 96 % aYw Singh MD Work Phone: [facility] 09-22-2024 07:26-0400 Systolic blood pressure 112 mm[Hg] Yaw Singh MD Work Phone: [facility] 09-17-2024 22:19-0400 Body temperature 98.2 [degF] Dr. Yaw Yoder Work Phone: [facility] 09-17-2024 22:19-0400 Diastolic blood pressure 56 mm[Hg] Dr. Yaw Singh MD Work Phone: [facility] 09-17-2024 22:19-0400 Heart rate 74 /min Dr. Yaw Yoder Work Phone: [facility] 09-17-2024 22:19-0400 Respiratory rate 14 /min Dr. Yaw Yoder Work Phone: [facility] 09-17-2024 22:19-0400 SaO2% (BldA) [Mass fraction] 95 % Dr. Yaw Singh MD Work Phone: [facility] 09-17-2024 22:19-0400 Systolic blood pressure 101 mm[Hg] Dr. Yaw Singh MD Work Phone: [facility] 09-17-2024 17:30-0400 Body height 175.[address] Yaw Yoder Work Phone: [facility] 09-17-2024 17:30-0400 Body mass index (BMI) [Ratio] 23.6 kg/m2 Dr. Yaw Singh MD Work Phone: [facility] 09-17-2024 17:30-0400 Body weight 72.[address] Yaw Yoder Work Phone: [facility] 09-12-2024 08:41-0400 Body mass index (BMI) [Ratio] 23.34 kg/m2 Yaw Smith APRN.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 Work Phone: [facility] 09-12-2024 08:41-0400 Body temperature 97.81 [degF] Yaw Smith APRN.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 Work Phone: [facility] 09-12-2024 08:41-0400 Body weight 73.8 kg Yaw Smith APRN.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 Work Phone: [facility] 09-12-2024 08:41-0400 Diastolic blood pressure 70 mm[Hg] Yaw Smith 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: [facility] 09-12-2024 08:41-0400 Heart rate 86 /min Yaw Smith 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: [facility] 09-12-2024 08:41-0400 Respiratory rate 18 /min Yaw Smith 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: [facility] 09-12-2024 08:41-0400 SaO2% (BldA) [Mass fraction] 97 % Yaw Luis 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: [facility] 09-12-2024 08:41-0400 Systolic blood pressure 118 mm[Hg] Yaw Smith 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: [facility] 09-02-2024 13:52-0400 Body temperature 97.5 [degF] Dr. Yaw Yoder Work Phone: [facility] 09-02-2024 13:52-0400 Body weight 73.[address] Yaw Yoder Work Phone: [facility] 09-02-2024 13:52-0400 Diastolic blood pressure 71 mm[Hg] Dr. Yaw Singh MD Work Phone: [facility] 09-02-2024 13:52-0400 Heart rate 112 /min Dr. Yaw Yoder Work Phone: [facility] 09-02-2024 13:52-0400 Respiratory rate 16 /min Dr. Yaw Yoder Work Phone: [facility] 09-02-2024 13:52-0400 SaO2% (BldA) [Mass fraction] 96 % Dr. Yaw Singh MD Work Phone: [facility] 09-02-2024 13:52-0400 Systolic blood pressure 107 mm[Hg] Dr. Yaw Singh MD Work Phone: [facility] 08-20-2024 08:23-0400 Body mass index (BMI) [Ratio] 23.5 kg/m2 Steve Clutter PA-C Work Phone: [facility] 08-20-2024 08:23-0400 Body temperature 97.2 [degF] Steve Clutter PA-C Work Phone: [facility] 08-20-2024 08:23-0400 Body weight 74.3 kg Steve Clutter PA-C Work Phone: [facility] 08-20-2024 08:23-0400 Diastolic blood pressure 74 mm[Hg] Steve Clutter PA-C Work Phone: [facility] 08-20-2024 08:23-0400 Heart rate 84 /min Steve Clutter PA-C Work Phone: [facility] 08-20-2024 08:23-0400 Respiratory rate 16 /min Steve Clutter PA-C Work Phone: [facility] 08-20-2024 08:23-0400 SaO2% (BldA) [Mass fraction] 96 % Steve Clutter PA-C Work Phone: [facility] 08-20-2024 08:23-0400 Systolic blood pressure 118 mm[Hg] Steve Clutter PA-C Work Phone: [facility] 08-05-2024 12:39-0400 Body mass index (BMI) [Ratio] 23.82 kg/m2 Krislyn Aberegg PA Work Phone: [facility] 08-05-2024 12:39-0400 Body temperature 98.2 [degF] Krislyn Aberegg PA Work Phone: [facility] 08-05-2024 12:39-0400 Body weight 75.3 kg Krislyn Aberegg PA Work Phone: [facility] 08-05-2024 12:39-0400 Diastolic blood pressure 64 mm[Hg] Krislyn Aberegg PA Work Phone: [facility] 08-05-2024 12:39-0400 Heart rate 90 /min Krislyn Aberegg PA Work Phone: [facility] 08-05-2024 12:39-0400 Respiratory rate 16 /min Krislyn Aberegg PA Work Phone: [facility] 08-05-2024 12:39-0400 SaO2% (BldA) [Mass fraction] 98 % Krislyn Aberegg PA Work Phone: [facility] 08-05-2024 12:39-0400 Systolic blood pressure 122 mm[Hg] Krislyn Aberegg PA Work Phone: [facility] 07-22-2024 14:21-0400 Body temperature 98.2 [degF] Dr. Yaw Yoder Work Phone: [facility] 07-22-2024 14:21-0400 Body weight 74.[address] Yaw Yoder Work Phone: 4(127)500-339936 [place] [address] 07-22-2024 14:21-0400 Diastolic blood pressure 65 mm[Hg] Dr. Yaw Singh MD Work Phone: 2(114)567-861836 [place] [address] 07-22-2024 14:21-0400 Heart rate 86 /min Dr. Yaw Yoder Work Phone: [facility] 07-22-2024 14:21-0400 Respiratory rate 16 /min Dr. Yaw Yoder Work Phone: [facility] 07-22-2024 14:21-0400 SaO2% (BldA) [Mass fraction] 97 % Dr. Yaw Singh MD Work Phone: [facility] 07-22-2024 14:21-0400 Systolic blood pressure 103 mm[Hg] Dr. Yaw Singh MD Work Phone: 5(718)375-962536 [place] [address] 06-30-2024 13:22-0400 Body mass index (BMI) [Ratio] 23.24 kg/m2 Yaw Singh MD Work Phone: [facility] 06-30-2024 13:22-0400 Body temperature 97.7 [degF] Yaw Singh MD Work Phone: [facility] 06-30-2024 13:22-0400 Body weight 73.48 kg Yaw Singh MD Work Phone: [facility] 06-30-2024 13:22-0400 Diastolic blood pressure 74 mm[Hg] Yaw Singh MD Work Phone: [facility] 06-30-2024 13:22-0400 Heart rate 70 /min Yaw Singh MD Work Phone: [facility] 06-30-2024 13:22-0400 Respiratory rate 18 /min Yaw Singh MD Work Phone: [facility] 06-30-2024 13:22-0400 Systolic blood pressure 112 mm[Hg] Yaw Singh MD Work Phone: [facility] 06-30-2024 11:17-0400 Body temperature 98.4 [degF] Dr. Yaw Yoder Work Phone: [facility] 06-30-2024 11:17-0400 Diastolic blood pressure 73 mm[Hg] Dr. Yaw Singh MD Work Phone: [facility] 06-30-2024 11:17-0400 Heart rate 79 /min Dr. Yaw Yoder Work Phone: [facility] 06-30-2024 11:17-0400 Respiratory rate 16 /min Dr. Yaw Yoder Work Phone: [facility] 06-30-2024 11:17-0400 SaO2% (BldA) [Mass fraction] 99 % Dr. Yaw Singh MD Work Phone: [facility] 06-30-2024 11:17-0400 Systolic blood pressure 104 mm[Hg] Dr. Yaw Singh MD Work Phone: [facility] 06-30-2024 07:02-0400 Body height 175.[address] Yaw Yoder Work Phone: [facility] 06-30-2024 07:02-0400 Body mass index (BMI) [Ratio] 23.8 kg/m2 Dr. Yaw Singh MD Work Phone: [facility] 06-30-2024 07:02-0400 Body weight 73.[address] Yaw Yoder Work Phone: [facility] 06-11-2024 08:10-0500 Body height 177.8 cm [facility] Work Phone: [facility] 06-11-2024 08:10-0500 Body mass index (BMI) [Ratio] 23.38 kg/m2 [facility] Work Phone: [facility] 06-11-2024 08:10-0500 Body temperature 98.49 [degF] [facility] Work Phone: [facility] 06-11-2024 08:10-0500 Body weight 73.9 kg [facility] Work Phone: [facility] 06-11-2024 08:10-0500 Diastolic blood pressure 76 mm[Hg] [facility] Work Phone: [facility] 06-11-2024 08:10-0500 Heart rate 93 /min [facility] Work Phone: [facility] 06-11-2024 08:10-0500 SaO2% (BldA) [Mass fraction] 99 % [facility] Work Phone: [facility] 06-11-2024 08:10-0500 Systolic blood pressure 128 mm[Hg] [facility] Work Phone: [facility] 06-11-2024 08:07-0500 Body height 177.8 cm [facility] Work Phone: [facility] 06-11-2024 08:07-0500 Body mass index (BMI) [Ratio] 23.38 kg/m2 [facility] Work Phone: [facility] 06-11-2024 08:07-0500 Body temperature 98.49 [degF] [facility] Work Phone: [facility] 06-11-2024 08:07-0500 Body weight 73.9 kg [facility] Work Phone: [facility] 06-11-2024 08:07-0500 Diastolic blood pressure 76 mm[Hg] [facility] Work Phone: [facility] 06-11-2024 08:07-0500 Heart rate 93 /min [facility] Work Phone: [facility] 06-11-2024 08:07-0500 SaO2% (BldA) [Mass fraction] 98 % [facility] Work Phone: [facility] 06-11-2024 08:07-0500 Systolic blood pressure 128 mm[Hg] [facility] Work Phone: [facility] 05-07-2024 08:28-0500 Body mass index (BMI) [Ratio] 23.5 kg/m2 Edwin Montes 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: [facility] 05-07-2024 08:28-0500 Body temperature 97.7 [degF] Edwin Montes 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: [facility] 05-07-2024 08:28-0500 Body weight 74.3 kg Edwin Montes 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: [facility] 05-07-2024 08:28-0500 Diastolic blood pressure 78 mm[Hg] Edwin Montes 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: [facility] 05-07-2024 08:28-0500 Heart rate 117 /min Edwin Montes 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: [facility] 05-07-2024 08:28-0500 Respiratory rate 16 /min Edwin Montes 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: [facility] 05-07-2024 08:28-0500 SaO2% (BldA) [Mass fraction] 98 % Edwin Montes 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: [facility] 05-07-2024 08:28-0500 Systolic blood pressure 118 mm[Hg] Edwin Montes ADALGISA.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 Work Phone: [facility] 05-02-2024 15:29-0500 Body mass index (BMI) [Ratio] 23.1 kg/m2 Richard Masci DO Work Phone: [facility] 05-02-2024 15:29-0500 Body temperature 98.4 [degF] Richard Masci DO Work Phone: [facility] 05-02-2024 15:29-0500 Body weight 73.03 kg Richard Masci DO Work Phone: [facility] 05-02-2024 15:29-0500 Diastolic blood pressure 82 mm[Hg] Richard Masci DO Work Phone: [facility] 05-02-2024 15:29-0500 Heart rate 77 /min Richard Masci DO Work Phone: [facility] 05-02-2024 15:29-0500 SaO2% (BldA) [Mass fraction] 95 % Richard Masci DO Work Phone: [facility] 05-02-2024 15:29-0500 Systolic blood pressure 129 mm[Hg] Richard Masci DO Work Phone: [facility] 04-29-2024 13:43-0500 Body height 177.[address] Yaw Yoder Work Phone: [facility] 04-29-2024 13:43-0500 Body mass index (BMI) [Ratio] 22.5 kg/m2 Dr. Yaw Singh MD Work Phone: [facility] 04-29-2024 13:43-0500 Body weight 71.[address] Yaw Yoder Work Phone: [facility] 04-29-2024 13:43-0500 Diastolic blood pressure 69 mm[Hg] Dr. Yaw Singh MD Work Phone: 9(244)246-848030 [place] [address] 04-29-2024 13:43-0500 Heart rate 96 /min Dr. Yaw Yoder Work Phone: 0(825)307-678030 [place] [address] 04-29-2024 13:43-0500 Respiratory rate 16 /min Dr. Yaw Yoder Work Phone: 6(928)522-256030 [place] [address] 04-29-2024 13:43-0500 Systolic blood pressure 98 mm[Hg] Dr. Yaw Singh MD Work Phone: 7(030)994-966330 [place] [address] 04-28-2024 14:24-0500 Body temperature 97.7 [degF] Dr. Yaw Yoder Work Phone: 8(160)190-767630 [place] [address] 04-28-2024 14:24-0500 Body weight 72.[address] Yaw Yoder Work Phone: 6(920)445-444130 [place] [address] 04-28-2024 14:24-0500 Diastolic blood pressure 73 mm[Hg] Dr. Yaw Singh MD Work Phone: 8(558)555-716530 [place] [address] 04-28-2024 14:24-0500 Heart rate 77 /min Dr. Yaw Yoder Work Phone: 4(465)581-929230 [place] [address] 04-28-2024 14:24-0500 Respiratory rate 16 /min Dr. Yaw Yoder Work Phone: 4(211)620-280130 [place] [address] 04-28-2024 14:24-0500 SaO2% (BldA) [Mass fraction] 98 % Dr. Yaw Singh MD Work Phone: 4(834)007-551830 [place] [address] 04-28-2024 14:24-0500 Systolic blood pressure 115 mm[Hg] Dr. Yaw Singh MD Work Phone: 5(026)140-374430 [place] [address] 03-11-2024 10:00-0500 Body height 177.8 cm Yaw Singh MD Work Phone: 2(230)835-883159 [place] [address] 03-11-2024 10:00-0500 Body mass index (BMI) [Ratio] 22.53 kg/m2 Yaw Singh MD Work Phone: [facility] 03-11-2024 10:00-0500 Body weight 71.22 kg Yaw Singh MD Work Phone: [facility] 03-11-2024 10:00-0500 Diastolic blood pressure 76 mm[Hg] Yaw Singh MD Work Phone: [facility] 03-11-2024 10:00-0500 Heart rate 94 /min Yaw Singh MD Work Phone: [facility] 03-11-2024 10:00-0500 Respiratory rate 16 /min Yaw Singh MD Work Phone: [facility] 03-11-2024 10:00-0500 Systolic blood pressure 120 mm[Hg] Yaw Singh MD Work Phone: [facility] 01-31-2024 09:28-0400 Body height 177.8 cm Zachary Seabold 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: [facility] 01-31-2024 09:28-0400 Body mass index (BMI) [Ratio] 22.24 kg/m2 Zachary Seabold 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: [facility] 01-31-2024 09:28-0400 Body temperature 97.7 [degF] Zachary Seabold 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: [facility] 01-31-2024 09:28-0400 Body weight 70.31 kg Zachary Seabold 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: [facility] 01-31-2024 09:28-0400 Diastolic blood pressure 71 mm[Hg] Zachary Seabold 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: [facility] 01-31-2024 09:28-0400 Heart rate 89 /min Zachary Seabold 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: [facility] 01-31-2024 09:28-0400 Respiratory rate 24 /min Zachary Seabold 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: [facility] 01-31-2024 09:28-0400 SaO2% (BldA) [Mass fraction] 100 % Zachary Seabold 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: [facility] 01-31-2024 09:28-0400 Systolic blood pressure 103 mm[Hg] Zachary Seabold 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: [facility] 01-17-2024 10:38-0400 Body height 175.3 cm Yaw Singh MD Work Phone: [facility] 01-17-2024 10:38-0400 Body mass index (BMI) [Ratio] 23.48 kg/m2 Yaw Singh MD Work Phone: [facility] 01-17-2024 10:38-0400 Body weight 72.12 kg Yaw Singh MD Work Phone: [facility] 01-17-2024 10:38-0400 Diastolic blood pressure 67 mm[Hg] Yaw Singh MD Work Phone: [facility] 01-17-2024 10:38-0400 Heart rate 76 /min Yaw Singh MD Work Phone: [facility] 01-17-2024 10:38-0400 Systolic blood pressure 104 mm[Hg] Yaw Singh MD Work Phone: [facility] 01-15-2024 09:09-0400 Body mass index (BMI) [Ratio] 23.48 kg/m2 Richard Jenkins DO Work Phone: [facility] 01-15-2024 09:09-0400 Body temperature 97.81 [degF] Richard Jenkins DO Work Phone: [facility] 01-15-2024 09:09-0400 Body weight 72.12 kg Richard Jenkins DO Work Phone: [facility] 01-15-2024 09:09-0400 Diastolic blood pressure 80 mm[Hg] Richard Masci DO Work Phone: [facility] 01-15-2024 09:09-0400 Heart rate 91 /min Richard Mendezi DO Work Phone: [facility] 01-15-2024 09:09-0400 SaO2% (BldA) [Mass fraction] 98 % Richard Mendezi DO Work Phone: [facility] 01-15-2024 09:09-0400 Systolic blood pressure 111 mm[Hg] Richard Mendezi DO Work Phone: [facility] 01-03-2024 11:45-0400 Diastolic blood pressure 68 mm[Hg] Yaw Singh MD Work Phone: [facility] 01-03-2024 11:45-0400 Systolic blood pressure 100 mm[Hg] Yaw Singh MD Work Phone: [facility] 01-03-2024 11:05-0400 Body height 175.3 cm Yaw Singh MD Work Phone: [facility] 01-03-2024 11:05-0400 Body mass index (BMI) [Ratio] 25.31 kg/m2 Yaw Singh MD Work Phone: [facility] 01-03-2024 11:05-0400 Body weight 77.75 kg Yaw Singh MD Work Phone: [facility] 01-03-2024 11:05-0400 Heart rate 75 /min Yaw Singh MD Work Phone: [facility] 10-09-2023 08:29-0400 Body height 177.2 cm Helen Blair MD Work Phone: [facility] 10-09-2023 08:29-0400 Body mass index (BMI) [Ratio] 28.76 kg/m2 Helen Blair MD Work Phone: [facility] 10-09-2023 08:29-0400 Body temperature 98.01 [degF] Helen Blair MD Work Phone: [facility] 10-09-2023 08:29-0400 Body weight 90.27 kg Helen Blair MD Work Phone: [facility] 10-09-2023 08:29-0400 Diastolic blood pressure 87 mm[Hg] Helen Blair MD Work Phone: [facility] 10-09-2023 08:29-0400 Heart rate 75 /min Helen Blair MD Work Phone: [facility] 10-09-2023 08:29-0400 Respiratory rate 18 /min Helen Blair MD Work Phone: [facility] 10-09-2023 08:29-0400 SaO2% (BldA) [Mass fraction] 96 % Helen Blair MD Work Phone: [facility] 10-09-2023 08:29-0400 Systolic blood pressure 133 mm[Hg] Helen Blair MD Work Phone: [facility] 10-05-2023 09:55-0400 Body mass index (BMI) [Ratio] 28.9 kg/m2 Yaw Singh MD Work Phone: [facility] 10-05-2023 09:55-0400 Body weight 90.72 kg Yaw Singh MD Work Phone: [facility] 10-05-2023 09:55-0400 Diastolic blood pressure 82 mm[Hg] Yaw Singh MD Work Phone: [facility] 10-05-2023 09:55-0400 Heart rate 80 /min Yaw Singh MD Work Phone: [facility] 10-05-2023 09:55-0400 Respiratory rate 20 /min Yaw Singh MD Work Phone: [facility] 10-05-2023 09:55-0400 Systolic blood pressure 124 mm[Hg] Yaw Singh MD Work Phone: [facility] 09-13-2023 07:11-0400 Body mass index (BMI) [Ratio] 28.04 kg/m2 Usha Mcgovern PA-C Work Phone: [facility] 09-13-2023 07:11-0400 Body temperature 97.59 [degF] Usha Mcgovern PA- C Work Phone: [facility] 09-13-2023 07:11-0400 Body weight 88 kg Usha Mcgovern PA- C Work Phone: [facility] 09-13-2023 07:11-0400 Diastolic blood pressure 76 mm[Hg] Usha Mcgovern PA-C Work Phone: [facility] 09-13-2023 07:11-0400 Heart rate 85 /min Usha Mcgovern PA- C Work Phone: [facility] 09-13-2023 07:11-0400 Respiratory rate 16 /min Usha Mcgovern PA- C Work Phone: [facility] 09-13-2023 07:11-0400 SaO2% (BldA) [Mass fraction] 99 % Usha Mcgovern PA-C Work Phone: [facility] 09-13-2023 07:11-0400 Systolic blood pressure 114 mm[Hg] Usha Mcgovern PA-C Work Phone: [facility] 08-10-2023 09:44-0400 Body mass index (BMI) [Ratio] 28.33 kg/m2 Richard Goi DO Work Phone: [facility] 08-10-2023 09:44-0400 Body temperature 99.19 [degF] Richard Masci DO Work Phone: [facility] 08-10-2023 09:44-0400 Body weight 88.91 kg Richard Masci DO Work Phone: [facility] 08-10-2023 09:44-0400 Diastolic blood pressure 80 mm[Hg] Richard Masci DO Work Phone: [facility] 08-10-2023 09:44-0400 Heart rate 71 /min Richard Masci DO Work Phone: [facility] 08-10-2023 09:44-0400 SaO2% (BldA) [Mass fraction] 97 % Richard Mendezi DO Work Phone: [facility] 08-10-2023 09:44-0400 Systolic blood pressure 136 mm[Hg] Richard Mendezi DO Work Phone: [facility] 07-12-2023 10:34-0400 Body height 177.2 cm Jesus Manuel Resendiz PA-C Work Phone: [facility] 07-12-2023 10:34-0400 Body weight 88 kg Jesus Manuel Resendiz PA-C Work Phone: [facility] 07-12-2023 10:34-0400 Diastolic blood pressure 69 mm[Hg] Jesus Manuel Resendiz PA-C Work Phone: [facility] 07-12-2023 10:34-0400 Heart rate 77 /min Jesus Manuel Resendiz PA-C Work Phone: [facility] 07-12-2023 10:34-0400 SaO2% (BldA) [Mass fraction] 100 % Jesus Manuel Resendiz PA-C Work Phone: [facility] 07-12-2023 10:34-0400 Systolic blood pressure 124 mm[Hg] Jesus Manuel Resendiz PA-C Work Phone: [facility] 06-19-2023 06:52-0400 Body temperature 97.11 [degF] Usha Mcgovern PA- C Work Phone: [facility] 06-19-2023 06:52-0400 Body weight 88 kg Usha Mcgovern PA- C Work Phone: [facility] 06-19-2023 06:52-0400 Diastolic blood pressure 82 mm[Hg] Usha Mcgovern PA-C Work Phone: [facility] 06-19-2023 06:52-0400 Heart rate 70 /min Usha Mcgovern PA- C Work Phone: [facility] 06-19-2023 06:52-0400 Respiratory rate 18 /min Usha Mcgovern PA- C Work Phone: [facility] 06-19-2023 06:52-0400 Systolic blood pressure 122 mm[Hg] Usha Mcgovern PA-C Work Phone: [facility] 06-05-2023 14:51-0500 Diastolic blood pressure 85 mm[Hg] Amos Rangel MD Work Phone: [facility] 06-05-2023 14:51-0500 Heart rate 72 /min Amos Rangel MD Work Phone: [facility] 06-05-2023 14:51-0500 Respiratory rate 26 /min Amos Rangel MD Work Phone: [facility] 06-05-2023 14:51-0500 SaO2% (BldA) [Mass fraction] 95 % Amos Rangel MD Work Phone: [facility] 06-05-2023 14:51-0500 Systolic blood pressure 132 mm[Hg] Amos Rangel MD Work Phone: [facility] 06-05-2023 14:32-0500 Body temperature 97.9 [degF] Amos Rangel MD Work Phone: [facility] 06-05-2023 12:25-0500 Body height 175.3 cm Amos Rangel MD Work Phone: [facility] 06-05-2023 12:25-0500 Body weight 87.54 kg Amos Rangel MD Work Phone: [facility] 02-27-2023 14:48-0500 Body temperature 97.11 [degF] 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: [facility] 02-27-2023 14:48-0500 Body weight 88.36 kg 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: [facility] 02-27-2023 14:48-0500 Diastolic blood pressure 84 mm[Hg] 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: [facility] 02-27-2023 14:48-0500 Heart rate 67 /min 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: [facility] 02-27-2023 14:48-0500 Respiratory rate 16 /min 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: [facility] 02-27-2023 14:48-0500 SaO2% (BldA) [Mass fraction] 98 % 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: [facility] 02-27-2023 14:48-0500 Systolic blood pressure 152 mm[Hg] 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: [facility] 08-22-2022 08:08-0400 Body temperature 97.9 [degF] Richard Masci DO Work Phone: [facility] 08-22-2022 08:08-0400 Body weight 85.28 kg Richard Masci DO Work Phone: [facility] 08-22-2022 08:08-0400 Diastolic blood pressure 80 mm[Hg] Richard Masci DO Work Phone: [facility] 08-22-2022 08:08-0400 Heart rate 70 /min Richard Masci DO Work Phone: [facility] 08-22-2022 08:08-0400 SaO2% (BldA) [Mass fraction] 99 % Richard Masci DO Work Phone: [facility] 08-22-2022 08:08-0400 Systolic blood pressure 135 mm[Hg] Richard Masci DO Work Phone: [facility] 08-09-2022 12:35-0400 Body temperature 97.81 [degF] Usha Troncoso Work Phone: [facility] 08-09-2022 12:35-0400 Body weight 87.09 kg Usha Troncoso Work Phone: [facility] 08-09-2022 12:35-0400 Diastolic blood pressure 78 mm[Hg] Usha Mcgovern PA-C Work Phone: [facility] 08-09-2022 12:35-0400 Heart rate 72 /min Usha Mcgovern PA- C Work Phone: [facility] 08-09-2022 12:35-0400 Respiratory rate 16 /min Usha Mcgovern PA- C Work Phone: [facility] 08-09-2022 12:35-0400 Systolic blood pressure 122 mm[Hg] Usha Mcgovern PA-C Work Phone: [facility] 08-02-2022 13:42-0400 Body height 177 cm Season Gilbert 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 Work Phone: [facility] 08-02-2022 13:42-0400 Body temperature 98.2 [degF] Season Gilbert 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 Work Phone: [facility] 08-02-2022 13:42-0400 Body weight 84.5 kg Season Gilbert 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 Work Phone: [facility] 08-02-2022 13:42-0400 Diastolic blood pressure 80 mm[Hg] Season Gilbert 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 Work Phone: [facility] 08-02-2022 13:42-0400 Heart rate 57 /min Season Gilbert 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 Work Phone: [facility] 08-02-2022 13:42-0400 SaO2% (BldA) [Mass fraction] 95 % Season Gilbert 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 Work Phone: [facility] 08-02-2022 13:42-0400 Systolic blood pressure 138 mm[Hg] Season Gilbert 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 Work Phone: [facility] 08-02-2022 12:30-0400 Diastolic blood pressure 79 mm[Hg] Francesca Vazquez MD Work Phone: [facility] 08-02-2022 12:30-0400 Heart rate 65 /min Francesca Vazquez MD Work Phone: [facility] 08-02-2022 12:30-0400 Respiratory rate 16 /min Francesca Vazquez MD Work Phone: [facility] 08-02-2022 12:30-0400 SaO2% (BldA) [Mass fraction] 96 % Francesca Vazquez MD Work Phone: [facility] 08-02-2022 12:30-0400 Systolic blood pressure 120 mm[Hg] Francesca Vazquez MD Work Phone: [facility] 08-02-2022 12:03-0400 Body temperature 97.3 [degF] Francesca Vazquez MD Work Phone: [facility] 06-23-2022 18:06-0400 Heart rate 73 /min Dr. Yaw Singh Work Phone: [facility] 06-23-2022 18:06-0400 Respiratory rate 18 /min Dr. Yaw Singh Work Phone: [facility] 06-23-2022 18:06-0400 SaO2% (BldA) [Mass fraction] 93 % Dr. Yaw Singh Work Phone: [facility] 06-23-2022 14:56-0400 Body height 177.[address] Yaw Singh Work Phone: [facility] 06-23-2022 14:56-0400 Body mass index (BMI) [Ratio] 23.4 kg/m2 Dr. Yaw Singh Work Phone: [facility] 06-23-2022 14:56-0400 Body temperature 97.8 [degF] Dr. Yaw Singh Work Phone: [facility] 06-23-2022 14:56-0400 Body weight 74.[address] Yaw Singh Work Phone: [facility] 06-23-2022 14:56-0400 Diastolic blood pressure 71 mm[Hg] Dr. Yaw Singh Work Phone: [facility] 06-23-2022 14:56-0400 Systolic blood pressure 124 mm[Hg] Dr. Yaw Singh Work Phone: [facility] 06-09-2022 14:46-0500 Body temperature 96.8 [degF] [facility] 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: [facility] 06-09-2022 14:46-0500 Body weight 90.72 kg Yaw Matsonchuck 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: [facility] 06-09-2022 14:46-0500 Diastolic blood pressure 80 mm[facility]Hg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: [facility] 06-09-2022 14:46-0500 Heart rate 70 /min Yaw Matsonchuck 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: [facility] 06-09-2022 14:46-0500 Respiratory rate 18 /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: [facility] 06-09-2022 14:46-0500 SaO2% (BldA) [Mass fraction] 96 % [facility] 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: [facility] 06-09-2022 14:46-0500 Systolic blood pressure 120 mm[Hg] [facility] 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: [facility] 05-15-2022 08:33-0500 Body mass index (BMI) [Ratio] 27.6 kg/m2 Dr. Yaw Singh Work Phone: [facility] 05-15-2022 08:33-0500 Body weight 87.[address] Yaw Singh Work Phone: [facility] 05-15-2022 08:33-0500 Diastolic blood pressure 95 mm[Hg] Dr. Yaw Singh Work Phone: [facility] 05-15-2022 08:33-0500 Heart rate 63 /min Dr. Yaw Singh Work Phone: [facility] 05-15-2022 08:33-0500 Respiratory rate 18 /min Dr. Yaw Singh Work Phone: [facility] 05-15-2022 08:33-0500 SaO2% (BldA) [Mass fraction] 97 % Dr. Yaw Singh Work Phone: [facility] 05-15-2022 08:33-0500 Systolic blood pressure 149 mm[Hg] Dr. Yaw Singh Work Phone: [facility] 03-17-2022 13:33-0500 Body temperature 97.81 [degF] Dana Callow [employer] Work Phone: [facility] 03-17-2022 13:33-0500 Body weight 88 kg Dana Callow [employer] Work Phone: [facility] 03-17-2022 13:33-0500 Diastolic blood pressure 74 mm[Hg] Dana Callow 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: [facility] 03-17-2022 13:33-0500 Heart rate 63 /min Dana Callow [employer] Work Phone: [facility] 03-17-2022 13:33-0500 Respiratory rate 16 /min Dana Callow [employer] Work Phone: [facility] 03-17-2022 13:33-0500 SaO2% (BldA) [Mass fraction] 98 % Dana Callow 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: [facility] 03-17-2022 13:33-0500 Systolic blood pressure 126 mm[Hg] Dana Callow 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: [facility] 02-22-2022 08:26-0500 Diastolic blood pressure 84 mm[Hg] Mari Akhtar 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: [facility] 02-22-2022 08:26-0500 Heart rate 63 /min Mari Akhtar 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: [facility] 02-22-2022 08:26-0500 Systolic blood pressure 120 mm[Hg] Mari Akhtar 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: [facility] 02-22-2022 07:59-0500 Body temperature 97.9 [degF] Mari Akhtar 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: [facility] 02-22-2022 07:59-0500 Body weight 85.5 kg Mari Solorzanoenter 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: [facility] 02-22-2022 07:59-0500 SaO2% (BldA) [Mass fraction] 99 % [place] Akhtar 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: [facility] 02-09-2022 12:05-0400 Body height 174 cm Yaw Singh MD Work Phone: [facility] 02-09-2022 12:05-0400 Body weight 83.01 kg Yaw Singh MD Work Phone: [facility] 02-09-2022 12:05-0400 Diastolic blood pressure 78 mm[Hg] Yaw Singh MD Work Phone: [facility] 02-09-2022 12:05-0400 Heart rate 72 /min Yaw Singh MD Work Phone: [facility] 02-09-2022 12:05-0400 Respiratory rate 16 /min Yaw Singh MD Work Phone: [facility] 02-09-2022 12:05-0400 Systolic blood pressure 122 mm[Hg] Yaw Singh MD Work Phone: [facility] 12-01-2021 09:33-0400 Body temperature 98.8 [degF] [place] Akhtar 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: [facility] 12-01-2021 09:33-0400 Body weight 83.92 kg Mari Akhtar 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: [facility] 12-01-2021 09:33-0400 Diastolic blood pressure 90 mm[Hg] Mari Akhtar 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: [facility] 12-01-2021 09:33-0400 Heart rate 72 /min [place] Akhtar 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: [facility] 12-01-2021 09:33-0400 Systolic blood pressure 126 mm[Hg] Mari Akhtar 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: [facility] 11-09-2021 12:59-0400 Body height 177.8 cm Season Marenisco 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: [facility] 11-09-2021 12:59-0400 Body temperature 97.7 [degF] Season Marenisco 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: [facility] 11-09-2021 12:59-0400 Body weight 83.46 kg Season Marenisco 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: [facility] 11-09-2021 12:59-0400 Diastolic blood pressure 82 mm[Hg] Season Marenisco 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: [facility] 11-09-2021 12:59-0400 Heart rate 60 /min Season Marenisco [employer] 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: [facility] 11-09-2021 12:59-0400 Respiratory rate 16 /min 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: [facility] 11-09-2021 12:59-0400 SaO2% (BldA) [Mass fraction] 99 % [employer] 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: [facility] 11-09-2021 12:59-0400 Systolic blood pressure 135 mm[Hg] [employer] 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: [facility] 11-09-2021 12:30-0400 Diastolic blood pressure 82 mm[Hg] Francesca Vazquez MD Work Phone: [facility] 11-09-2021 12:30-0400 Heart rate 63 /min Francesca Vazquez MD Work Phone: [facility] 11-09-2021 12:30-0400 Respiratory rate 16 /min Francesca Vazquez MD Work Phone: [facility] 11-09-2021 12:30-0400 SaO2% (BldA) [Mass fraction] 98 % Francesca Vazquez MD Work Phone: [facility] 11-09-2021 12:30-0400 Systolic blood pressure 130 mm[Hg] Francesca Vazquez MD Work Phone: [facility] 11-09-2021 12:06-0400 Body temperature 97.3 [degF] Francesca Vazquez MD Work Phone: [facility] 11-09-2021 11:36-0400 Body height 177.8 cm Francesca Vazquez MD Work Phone: [facility] 11-09-2021 11:36-0400 Body weight 83.92 kg Francesca Vazquez MD Work Phone: [facility] 11-02-2021 10:35-0400 Body temperature 98.29 [degF] Richard Masci DO Work Phone: [facility] 11-02-2021 10:35-0400 Body weight 84.14 kg Richard Masci DO Work Phone: [facility] 11-02-2021 10:35-0400 Diastolic blood pressure 86 mm[Hg] Richard Masci DO Work Phone: [facility] 11-02-2021 10:35-0400 Heart rate 71 /min Richard Masci DO Work Phone: [facility] 11-02-2021 10:35-0400 SaO2% (BldA) [Mass fraction] 96 % Richard Masci DO Work Phone: [facility] 11-02-2021 10:35-0400 Systolic blood pressure 130 mm[Hg] Richard Masci DO Work Phone: [facility] 10-20-2021 13:35-0400 Body temperature 98.2 [degF] Treatment Wstr Work Phone: [facility] 10-20-2021 13:35-0400 Body weight 83.23 kg Treatment Wstr Work Phone: [facility] 10-20-2021 13:35-0400 Diastolic blood pressure 80 mm[Hg] Treatment Wstr Work Phone: [facility] 10-20-2021 13:35-0400 Heart rate 105 /min Treatment Wstr Work Phone: [facility] 10-20-2021 13:35-0400 Systolic blood pressure 126 mm[Hg] Treatment Wstr Work Phone: [facility] 10-05-2021 09:35-0400 Body height 175.3 cm Richard Masci DO Work Phone: [facility] 10-05-2021 09:35-0400 Body temperature 98.01 [degF] Richard Masci DO Work Phone: [facility] 10-05-2021 09:35-0400 Body weight 82.78 kg Richard Masci DO Work Phone: [facility] 10-05-2021 09:35-0400 Diastolic blood pressure 68 mm[Hg] Richard Masci DO Work Phone: [facility] 10-05-2021 09:35-0400 Heart rate 66 /min Richard Masci DO Work Phone: [facility] 10-05-2021 09:35-0400 SaO2% (BldA) [Mass fraction] 98 % Richard Masci DO Work Phone: [facility] 10-05-2021 09:35-0400 Systolic blood pressure 132 mm[Hg] Richard Masci DO Work Phone: [facility] 09-08-2021 14:01-0400 Body temperature 97.59 [degF] Treatment Wstr Work Phone: [facility] 09-08-2021 14:01-0400 Body weight 81.19 kg Treatment Wstr Work Phone: [facility] 09-08-2021 14:01-0400 Diastolic blood pressure 70 mm[Hg] Treatment Wstr Work Phone: [facility] 09-08-2021 14:01-0400 Heart rate 66 /min Treatment Wstr Work Phone: [facility] 09-08-2021 14:01-0400 Systolic blood pressure 109 mm[Hg] Treatment Wstr Work Phone: [facility] 09-07-2021 14:03-0400 Body height 170.2 cm Season [employer] 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: [facility] 09-07-2021 14:03-0400 Body temperature 98.1 [degF] [employer] 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: [facility] 09-07-2021 14:03-0400 Body weight 79.29 kg Season [employer] 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: [facility] 09-07-2021 14:03-0400 Diastolic blood pressure 74 mm[Hg] [employer] 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: [facility] 09-07-2021 14:03-0400 Heart rate 56 /min [employer] 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: [facility] 09-07-2021 14:03-0400 SaO2% (BldA) [Mass fraction] 98 % [employer] 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: [facility] 09-07-2021 14:03-0400 Systolic blood pressure 136 mm[Hg] [employer] 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: [facility] 09-07-2021 13:35-0400 Diastolic blood pressure 81 mm[Hg] Francesca Vazquez MD Work Phone: [facility] 09-07-2021 13:35-0400 Heart rate 67 /min Francesca Vazquez MD Work Phone: [facility] 09-07-2021 13:35-0400 Respiratory rate 16 /min Francesca Vazquez MD Work Phone: [facility] 09-07-2021 13:35-0400 SaO2% (BldA) [Mass fraction] 97 % Francesca Vazquez MD Work Phone: [facility] 09-07-2021 13:35-0400 Systolic blood pressure 137 mm[Hg] Francesca Vazquez MD Work Phone: [facility] 09-07-2021 13:10-0400 Body temperature 97.7 [degF] Francesca Vazquez MD Work Phone: [facility] 09-07-2021 11:22-0400 Body height 177.8 cm Francesca Vazquez MD Work Phone: [facility] 09-07-2021 11:22-0400 Body weight 81.65 kg Francesca Vazquez MD Work Phone: [facility] 08-25-2021 15:16-0400 Body temperature 97.11 [degF] Treatment Wstr Work Phone: [facility] 08-25-2021 15:16-0400 Diastolic blood pressure 78 mm[Hg] Treatment Wstr Work Phone: [facility] 08-25-2021 15:16-0400 Heart rate 89 /min Treatment Wstr Work Phone: [facility] 08-25-2021 15:16-0400 SaO2% (BldA) [Mass fraction] 99 % Treatment Wstr Work Phone: [facility] 08-25-2021 15:16-0400 Systolic blood pressure 136 mm[Hg] Treatment Wstr Work Phone: [facility] 08-24-2021 08:04-0400 Body temperature 98.01 [degF] Mari Akhtar APRN.CNP Work Phone: [facility] 08-24-2021 08:04-0400 Body weight 81.87 kg Mari [employer] 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: [facility] 08-24-2021 08:04-0400 Diastolic blood pressure 73 mm[Hg] Mari Ak[employer] 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: [facility] 08-24-2021 08:04-0400 Heart rate 71 /min Mari Ak[employer] 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: [facility] 08-24-2021 08:04-0400 Systolic blood pressure 128 mm[Hg] Mari Sol[employer] 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: [facility] 08-11-2021 14:44-0400 Body temperature 97.7 [degF] Treatment Wstr Work Phone: [facility] 08-11-2021 14:44-0400 Diastolic blood pressure 84 mm[Hg] Treatment Wstr Work Phone: [facility] 08-11-2021 14:44-0400 Heart rate 64 /min Treatment Wstr Work Phone: [facility] 08-11-2021 14:44-0400 Systolic blood pressure 121 mm[Hg] Treatment Wstr Work Phone: [facility] 07-28-2021 15:01-0400 Body temperature 97.5 [degF] Treatment Wstr Work Phone: [facility] 07-28-2021 15:01-0400 Diastolic blood pressure 82 mm[Hg] Treatment Wstr Work Phone: [facility] 07-28-2021 15:01-0400 Heart rate 78 /min Treatment Wstr Work Phone: [facility] 07-28-2021 15:01-0400 Systolic blood pressure 135 mm[Hg] Treatment Wstr Work Phone: [facility] 07-27-2021 08:12-0400 Body temperature 98.2 [degF] Richard Jenkins DO Work Phone: [facility] 07-27-2021 08:12-0400 Body weight 82.78 kg Richard Jenkins DO Work Phone: [facility] 07-27-2021 08:12-0400 Diastolic blood pressure 85 mm[Hg] Richard Jenkins DO Work Phone: [facility] 07-27-2021 08:12-0400 Heart rate 80 /min Richard Jenkins DO Work Phone: [facility] 07-27-2021 08:12-0400 Systolic blood pressure 126 mm[Hg] Richard Jenkins DO Work Phone: [facility] 03-04-2019 12:30-0500 Body Temperature 97.81 [degF] Tyshawn Carocristóbal [place], [place] 03-04-2019 12:30-0500 BP Diastolic 73 mm[Hg] [place] 03-04-2019 12:30-0500 BP Systolic 112 mm[Hg] [place] 03-04-2019 12:30-0500 Pulse (Heart Rate) 67 /min [facility] [place] 03-04-2019 12:30-0500 Pulse Oximetry 96 % [place] 03-04-2019 12:30-0500 Respiratory Rate 16 /min [place] 03-04-2019 06:04-0500 BMI (Body Mass Index) 37.49 kg/m2 [place] 03-04-2019 06:04-0500 Body weight 115.17 kg [place] 03-03-2019 05:38-0500 Height 175.3 cm [place] Encounters Encounter Date Encounter Type Care Provider Facility Start: 03-04-2025 ambulatory Nikita Jackson Facility:[facility] Start: 02-17-2025 End: 02-17-2025 ambulatory YAW SINGH Facility:[facility] Start: 02-04-2025 End: 02-04-2025 ambulatory Yaw Singh Facility:[facility] Start: 01-30-2025 End: 01-30-2025 Emergency department patient visit Fidelina River Facility:[facility] Start: 01-23-2025 ambulatory Yaw Singh Facility :[facility] Start: 01-22-2025 ambulatory Nikita Jackson [facility] Start: 01-22-2025 End: 01-22-2025 ambulatory Yaw Singh Facility:[facility] Start: 01-05-2025 End: 01-05-2025 ambulatory YAW SINGH Facility:[facility] Start: 12-24-2024 End: 12-24-2024 Patient encounter procedure Bobby Pratibha TAYLOR Work Phone: [facility] [place] Comment on above: Chronic sinusitis, u nspecified location (Primary Dx); Seasonal allergic rhinitis, unspecified trigger Start: 12-24-2024 End: 12-24-2024 ambulatory YAW SINGH Facility:[facility] Start: 12-22-2024 End: 12-22-2024 Refill Yaw Singh MD Work Phone: [facility] [place] Comment on above: Refill Request Start: 12-18-2024 End: 12-24-2024 Telephone encounter Richard Jenkins DO Work Phone: Hematology/Oncology Comment on above: Appointment Start: 12-03-2024 End: 12-03-[address] Yaw Singh MD Work Phone: -MRI - WC Start: 12-03-2024 End: 12-03-2024 Patient encounter procedure Connie Ibarra PA -MRI - WC Work Phone: Start: 12-03-2024 End: 12-03-2024 ambulatory Connie Ibarra Facility:[facility] Start: 11-26-2024 End: 11-26-[address] Yaw Singh MD Work Phone: -Outpatient Bone Densitometry Start: 11-26-2024 End: 11-26-2024 Patient encounter procedure Connie Ibarra PA -Outpatient Bone Densitometry Work Phone: Start: 11-26-2024 End: 11-26-2024 ambulatory Connie Ibarra Facility:[facility] Start: 11-14-2024 End: 11-14-[address] Haroldo Noland MD -[facility] Start: 11-14-2024 End: 11-14-[address] 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 Nikita nicholas MD -[facility] Start: 10-15-2024 End: 10-15-2024 Admission to same day surgery center Dr. Nikita Jackson MD -Recruiter Specialist/Special Procedures Work Phone: Start: 10-15-2024 End: 10-15-[address] Yaw Singh MD Work Phone: -Recruiter Specialist/Special Procedures Start: 10-08-2024 End: 10-14-2024 Follow-up encounter Usha Mcgovern PA-C Work Phone: [facility] [place] Comment on above: Results Start: 10-07-2024 End: 10-07-2024 Subsequent hospital visit by physician Xr [facility] [place] Work Phone: Radiology Comment on above: Lumbar back pain [M5 4.50] Start: 10-07-2024 End: 10-07-2024 Office outpatient visit 25 minutes Usha Mcgovern PA-C Work Phone: [facility] [place] Comment on above: Essential hypertensi on, benign (Primary Dx); Mixed hyperlipidemia; Coronary artery disease involving [place] coronary artery of [place] heart without angina pectoris; Esophageal adenocarcinoma (HCC); [...] Start: 10-07-2024 End: 10-07-2024 ambulatory YAW SINGH Facility:[facility] Start: 09-26-2024 End: 09-26-2024 Telephone encounter Yaw Singh MD Work Phone: [facility] [place] Comment on above: Orders Start: 09-22-2024 End: 09-22-2024 Patient encounter procedure Yaw Singh MD Work Phone: [facility] [place] Comment on above: History of cerebral infarction (Primary Dx); Gynecomastia Start: 09-22-2024 End: 09-22-2024 ambulatory YAW SINGH Facility:[facility] Start: 09-18-2024 End: 09-18-2024 Chart abstracting Yaw Singh MD Work Phone: [facility] [place] Comment on above: ER Discharge Summary Start: 09-17-2024 End: 09-17-2024 Emergency department patient visit Dr. Yaw Singh MD Work Phone: -Emergency Department Work Phone: Start: 09-12-2024 End: 09-12-2024 Office outpatient visit 25 minutes Yaw Smith APRN.CNP Work Phone: [facility] Comment on above: Skin tear of left fo rearm without complication, initial encounter (Primary Dx) Start: 09-12-2024 End: 09-12-2024 ambulatory YAW SINGH Facility:[facility] Start: 09-09-2024 End: 09-09-2024 Follow-up encounter Stacia Adame MD Work Phone: [facility] [place] Comment on above: Results (MRI without contrast) Start: 09-09-2024 End: 09-09-2024 Refill Richard Jenkins DO Work Phone: Hematology/Oncology Comment on above: Refill Request Start: 09-08-2024 End: 09-08-2024 Refill Yaw Singh MD Work Phone: [facility] [place] Comment on above: Refill Request Hyperprolactinemia ( HCC) [E22.1] Start: 09-04-2024 End: 09-05-2024 Follow-up encounter Yaw Singh MD Work Phone: [facility] [place] Start: 09-02-2024 End: 09-02-2024 Patient encounter procedure Maggie SOSA -[facility] Work Phone: Start: 09-02-2024 End: 09-02-2024 Refill Richard Jenkins DO Work Phone: Hematology/Oncology Comment on above: Refill Request Start: 08-27-2024 ambulatory YAW Joshii ty:[facility] Start: 08-20-2024 End: 08-20-2024 Subsequent hospital visit by physician Xr [facility] [place] Work Phone: Radiology Comment on above: Acute bilateral low back pain without sciatica [M54.50] Start: 08-20-2024 End: 08-20-2024 Office outpatient visit 25 minutes Steve Youssef PA-C Work Phone: [facility] Comment on above: Acute bilateral low back pain without sciatica (Primary Dx) Start: 08-20-2024 End: 08-20-2024 ambulatory STEVE YOUSSEF Facility:[facility] Start: 08-19-2024 End: 08-19-2024 ambulatory Josue Oquendo RN [employer] Comment on above: Bi-Weekly Outreach ( Recurring) for Chronic Disease Management Start: 08-11-2024 End: 08-11-2024 Refill Richard Mendezi DO Work Phone: Hematology/Oncology Comment on above: Refill Request Start: 08-05-2024 End: 08-05-2024 Patient encounter procedure Marcela SOSA Work Phone: [facility] Comment on above: Dog scratch (Primary Dx); Visit for wound check Start: 08-05-2024 End: 08-05-2024 ambulatory Josue Oquendo RN [employer] Comment on above: Bi-Weekly Outreach ( Recurring) for Chronic Disease Management Start: 08-01-2024 End: 09-01-2024 ambulatory Josue Oquendo RN [employer] Comment on above: Bi-Weekly Outreach ( Recurring) for Chronic Disease Management Start: 07-29-2024 End: 07-29-2024 Chart abstracting Alberta Candelaria MA [facility] [place] Comment on above: Consult (General Winifred jewell - F/U AVF ) Start: 07-22-2024 End: 07-22-2024 Patient encounter procedure Maggie SOSA -[facility] Work Phone: Start: 07-22-2024 End: 07-22-2024 ambulatory Yaw Singh Facility:[facility] Start: 07-21-2024 Encounter for other preprocedural examination Nikita [facility] Start: 07-16-2024 ambulatory Yaw Singh Facility :[facility] Start: 07-11-2024 End: 07-11-2024 Follow-up encounter Stacia Adame MD Work Phone: [facility] [place] Start: 07-11-2024 End: 09-08-2024 Telephone encounter Stacia Adame MD Work Phone: [facility] [place] Comment on above: Results Start: 07-10-2024 End: 07-10-2024 Refill Richard Jenkins DO Work Phone: Hematology/Oncology Comment on above: Refill Request Start: 07-04-2024 End: 07-04-2024 Chart abstracting Alberta Candelaria MA [facility] [place] [facility] Comment on above: Consult (Outside con sults /) Start: 06-30-2024 End: 06-30-2024 ambulatory YAW SINGH Facility:[facility] Start: 06-30-2024 End: 06-30-2024 Patient encounter procedure Yaw Singh MD Work Phone: [facility] Comment on above: Gynecomastia (Primar y Dx); Subareolar mass of right breast; Esophageal adenocarcinoma (HCC); Pain, unspecified; 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 Nikita nicholas MD -[facility] Start: 06-30-2024 End: 06-30-2024 Admission to same day surgery center Dr. Nikita Jackson MD -Surgical Day Care Start: 06-30-2024 End: 06-30-[address] Yaw Singh MD Work Phone: [facility] Work Phone: Start: 06-20-2024 End: 06-20-2024 Telephone encounter Hill HARRISON Work Phone: [facility] Comment on above: Follow Up (Psychosoc ial Eval) Start: 06-19-2024 Encounter for other preprocedural examination Nikita Jackson [facility] Start: 06-11-2024 Encounter for other preprocedural examination YAW SINGH [facility] Start: 06-11-2024 End: 06-11-2024 ambulatory [facility] Facility:[facility] Start: 06-11-2024 End: 06-11-2024 Preprocedural examination done Grabiel Ruff MD Work Phone: [facility] Start: 06-11-2024 End: 06-11-2024 [facility] Start: 06-11-2024 End: 06-11-2024 ambulatory Vicente Addison [...] encounter status Kidney Txp Coordinators Work Phone: [facility] Start: 06-11-2024 End: 06-11-2024 [facility]ulatory [facility] Start: 06-11-2024 Encounter for other preprocedural examination YAW SINGH [facility] Start: 06-09-2024 End: 06-09-2024 Chart abstracting Alberta Candelaria MA [facility] Comment on above: Results (Outside lab s /) Start: 06-06-2024 End: 06-06-2024 Chart abstracting Yaw Singh MD Work Phone: [facility] Comment on above: Outside Ruqr-Rce-WDI Ordered Pre-transplant evalu ation for kidney transplant (Primary Dx) Start: 06-06-2024 End: 06-06-2024 Patient encounter status Maulik Aranda MD Work Phone: [facility] Start: 06-06-2024 End: 06-06-2024 Telephone encounter Nisha Schultz RN [facility] Comment on above: Referral - Kidney Tx p Start: 06-06-2024 End: 06-06-[address] Yaw Singh MD Work Phone: [facility] Work Phone: Start: 06-06-2024 End: 06-06-[address] 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] Start: 05-07-2024 End: 05-08-2024 Telephone encounter Richard Jenkins DO Work Phone: Hematology/Oncology Comment on above: Results Start: 05-07-2024 End: 05-07-2024 ambulatory YAW SINGH Facility:[facility] Start: 05-07-2024 End: 05-07-2024 Patient encounter procedure Edwin Montes APRN.CNP Work Phone: [facility] Comment [...] Chart abstracting Yaw Singh MD Work Phone: [facility] [place] Comment on above: Outside Cardiology Start: 04-29-2024 End: 04-29-2024 Patient encounter procedure Vern SOSA -[facility] Work Phone: Start: 04-29-2024 End: 04-29-2024 ambulatory Yaw Singh Facility:[facility] Start: 04-28-2024 End: 04-28-[address] Nikita Jackson MD -[facility] Work Phone: Start: 04-28-2024 End: 04-28-2024 ambulatory Gaudencio Greenberg Facility:[facility] Start: 04-25-2024 End: 04-25-2024 Chart abstracting Yaw Singh MD Work Phone: [facility] Comment on above: Outside Imaging Start: 04-24-2024 ambulatory Yaw Samantha Facility :[facility] Start: 04-24-2024 Non-patient / Non-visit Dr. Nikita nicholas MD -[facility] Start: 04-24-2024 End: 04-24-[address] 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] Start: 03-11-2024 End: 03-11-2024 ambulatory YAW SINGH Facility:[facility] Start: 03-11-2024 End: 03-11-2024 Patient encounter procedure Yaw Singh MD Work Phone: [facility] Comment on above: Medicare annual well ness visit, subsequent (Primary Dx); Essential hypertension, benign; Mixed hyperlipidemia; Coronary artery disease involving [place] coronary artery of [place] heart without angina pectoris; Aortic valve stenosis, [...] Home visit Yaw Singh MD Work Phone: [facility] Comment on above: Closed intracapsular fracture of left femur with routine healing (Primary Dx) Start: 02-15-2024 End: 02-15-2024 Chart abstracting Yaw Singh MD Work Phone: [facility] Comment on above: ER Discharge Summary (H&P) Start: 02-15-2024 ambulatory [facility] Start: 02-15-[address] Elliot Singh MD Work Phone: [facility] Start: 02-04-2024 End: 02-04-2024 Telephone encounter Zachary Harpertaniya 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 Work Phone: Pulmonary Medicine Start: 01-31-2024 [facility] Start: 01-31-2024 End: 01-31-2024 Subsequent hospital visit by physician [facility] Comment on above: Pleural effusion [J9 0] Start: 01-31-2024 End: 01-31-2024 Patient encounter procedure Zachary Berkowitz 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: Pulmonary Medicine Comment on above: [...] Yaw Singh MD Work Phone: [facility] [place] Comment on above: Heart failure, unspe cified HF chronicity, unspecified heart failure type (HCC) (Primary Dx) Start: 01-06-2024 End: 01-14-2024 Telephone encounter Yaw Singh MD Work Phone: Family [facility] [place] Comment on above: Results Start: 01-03-2024 [...] Yaw Singh MD Work Phone: Family [facility] [place] Comment on above: Home Health Orders Start: 12-25-2023 End: 12-25-2023 Chart abstracting Yaw Singh MD Work Phone: [facility] [place] Comment on above: Outside EGD Start: 11-15-2023 Chart abstracting Yaw hernandez MD Work Phone: [facility] [place] Comment on above: Outside H&P (Outside Nephrology/) Start: 11-07-2023 Chart abstracting Alberta Candelaria MA [facility] [place] Comment on above: Hospital Admission ( [facility] ) Start: 11-05-2023 Chart abstracting Yaw hernandez MD Work Phone: Family Medicine [place] Comment on above: Outside EGD Hospital F/U ([facility] ) Start: 11-02-2023 Chart abstracting Alberta Candelaria MA [facility] [place] Comment on above: Hospital F/U ([facility] ) Start: 10-31-2023 Chart abstracting Alberta Candelaria MA [facility] [place] Comment on above: Consult (External co nsult Pulmonary - [facility] admitted ) Start: 10-29-2023 Chart abstracting Alberta Candelaria MA [facility] [place] Comment on above: Hospital F/U ([facility] ) Start: 10-23-2023 Telephone encounter Richard pace DO Work Phone: Hematology/Oncology Comment on above: Results Start: 10-09-2023 End: 10-09-2023 Patient encounter procedure Helen Blair MD Work Phone: Pulmonary Medicine Comment on above: Pleural effusion (Pr imary Dx); Chronic heart failure with preserved ejection fraction (HCC) Start: 10-08-2023 Telephone encounter Helen ann MD Work Phone: [facility] Comment on above: Patient Question Results Start: 10-05-2023 End: 10-05-2023 Patient encounter procedure Yaw Singh MD Work Phone: [facility] [place] Comment on above: Essential hypertensi on, benign (Primary Dx); Mixed hyperlipidemia; Gastroesophageal reflux disease, unspecified whether esophagitis present; Coronary artery disease involving [place] coronary artery of [place] heart without angina pectoris; Ascending aorta dilation (HCC); Iron deficiency anemia due to chronic blood loss; Uncomplicated asthma, unspecified asthma severity, unspecified whether persistent; Malignant neoplasm of lower third of esophagus (HCC); Esophageal adenocarcinoma (HCC); Pleural effusion; Primary insomnia; Microscopic hematuria; Medication management Start: 09-21-2023 Telephone encounter Usha white PA-C Work Phone: [facility] [place] Comment on above: Results Start: 09-17-2023 Telephone encounter Richard pace DO Work Phone: Hematology/Oncology Comment on above: Biopsy Request (Bone Biopsy) Results Start: 09-14-2023 Telephone encounter Usha white PA-C Work Phone: [facility] [place] Comment on above: Results Start: 09-13-2023 End: 09-13-2023 Subsequent hospital visit by physician Xr [facility] [place] Work Phone: Radiology Comment on above: Pleural effusion [J9 0] Start: 09-13-2023 End: 09-13-2023 Patient encounter procedure Usha Mcgovern PA-C Work Phone: [facility] [place] Comment on above: Pleural effusion (Pr imary Dx); Nephrolithiasis; TRIPATHI (dyspnea on exertion); Coronary artery disease involving [place] coronary artery of [place] heart without angina pectoris; Essential hypertension, benign Start: 09-12-2023 Telephone encounter Alberta Candelaria MA [facility] [place] Comment on above: Patient Update Start: 09-10-2023 End: 09-10-2023 Subsequent hospital visit by physician Mri Radio [facility] (I-Stat/1.5t) Work Phone: Radiology Comment on above: Pathological fractur e of thoracic vertebra, initial encounter [M84.48XA] Start: 09-06-2023 End: 09-06-2023 ambulatory Tye Flores PT Work Phone: [facility] Comment on above: Strain of thoracic p araspinal muscles excluding T1 and T2 levels, sequela (Primary Dx); Malignant neoplasm of lower third of esophagus (HCC); Closed wedge compression fracture of T10 vertebra with routine healing, subsequent encounter; Kyphosis (acquired) (postural) Start: 08-10-2023 Telephone encounter Rihcard pace DO Work Phone: Hematology/Oncology Comment on [...] 08-03-2023 Subsequent hospital [facility] Comment on above: 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] Start: 08-01-2023 Orders Only Richard Yoder O Work Phone: Hematology/Oncology Comment on above: 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) Start: 07-30-2023 End: 07-30-2023 ambulatory Tye Flores PT Work Phone: [facility] Comment on above: Closed [...] Jesus Manuel Resendiz PA-C Work Phone: [facility] [place] Comment on above: Strain of thoracic p araspinal muscles excluding T1 and T2 levels, sequela (Primary Dx); Closed wedge compression fracture of T10 vertebra with routine healing, subsequent encounter; Malignant neoplasm of lower third of esophagus (HCC); Kyphosis (acquired) (postural) Start: 07-02-2023 Telephone encounter Usha white PA-C Work Phone: [facility] [place] Comment on above: Results Start: 06-28-2023 Telephone encounter Yaw Singh MD Work Phone: [facility] [place] Comment on above: Results Start: 06-28-2023 End: 06-28-2023 Subsequent hospital visit by physician [facility] Work Phone: Nuclear Medicine Comment on above: RUQ pain [R10.11] Start: 06-19-2023 Telephone encounter Yaw Singh MD Work Phone: [facility] [place] Comment on above: Results Start: 06-19-2023 End: 06-19-2023 Patient encounter procedure Usha Mcgovern PA-C Work Phone: [facility] [place] Comment on above: RUQ pain (Primary Dx ); Nausea; Chronic midline low back pain without sciatica; Intertrigo Start: 06-15-2023 Telephone encounter Richard pace DO Work Phone: Hematology/Oncology Comment on above: Patient Question Start: 06-05-2023 Encounter for other preprocedural examination AMOS RANGEL [facility] Start: 06-05-2023 ambulatory AMOS RANGEL Facility :[facility] Start: 06-05-2023 End: 06-05-2023 Preprocedural examination done Amos Rangel MD Work Phone: [facility] Start: 06-05-2023 End: 06-05-2023 Subsequent hospital visit by physician Amos Rangel MD Work Phone: [facility] Comment on above: Malignant neoplasm o f esophagus, unspecified location (HCC) [C15.9] Start: 05-29-2023 Refill Richard Yoder O Work Phone: Hematology/Oncology Comment on above: Refill Request Start: 05-28-2023 Orders Only Amos Rangel MD Work Phone: [facility] Comment on above: Malignant neoplasm o f esophagus, unspecified location (HCC) (Primary Dx) Start: 05-07-2023 ambulatory JURGEN BOCANEGRA Facil ity:[facility] Start: 04-25-2023 End: 04-25-2023 ambulatory JURGEN BOCANEGRA Facility:[facility] Start: 04-10-2023 ambulatory RICHARD JENKINS Facility:[facility] Start: 03-30-2023 Patient encounter procedure Amos Rangel MD Work Phone: [facility] Work Phone: Start: 03-29-2023 Telephone encounter Richard pace DO Work Phone: Hematology/Oncology Comment on above: Results (MRI thoraci c spine) Start: 02-27-2023 End: 02-27-2023 Patient encounter procedure Jessica Olvera APRN.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 Work Phone: [facility] Comment on above: Rhinosinusitis (Prim ursula Dx) Start: 02-21-2023 Telephone encounter Richard pace DO Work Phone: Hematology/Oncology Comment on above: Results; Follow Up Start: 02-19-2023 End: 02-19-2023 Patient encounter procedure Yaw Singh MD Work Phone: [facility] [place] Comment on above: APPOINTMENT CANCELLE D (Primary Dx) Start: 02-13-2023 End: 02-13-2023 Subsequent hospital visit by physician Dina [facility] (I-Stat) Work Phone: Cat Scan Comment on above: 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] Start: 02-12-2023 Orders Only Richard Yoder O Work Phone: Hematology/Oncology Comment on above: 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) Start: 11-22-2022 Chart abstracting Yaw hernandez MD Work Phone: [facility] Comment on above: Consult Start: 11-15-2022 End: 11-15-2022 ambulatory [facility] Work Phone: Start: 11-15-2022 End: 11-15-2022 Patient encounter procedure [facility] Work Phone: Start: 08-22-2022 End: 08-22-2022 ambulatory Richard Jenkins DO Work Phone: Hematology/Oncology Comment on above: 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) Start: 08-22-2022 End: 08-22-2022 Patient encounter procedure Richard Jenkins DO Work Phone: [facility] Start: 08-09-2022 End: 08-09-2022 Patient encounter procedure Usha Mcgovern PA-C Work Phone: [facility] Comment on above: Essential hypertensi on, benign (Primary Dx); Mixed hyperlipidemia; Gastroesophageal reflux disease, unspecified whether esophagitis present; Esophageal adenocarcinoma (HCC); Coronary artery disease involving [place] coronary artery of [place] heart without angina pectoris; S/P CABG x 4; Malignant neoplasm of lower third of esophagus (HCC); Iron deficiency anemia due to chronic blood loss; Benign prostatic hyperplasia, unspecified whether lower urinary tract symptoms present Start: 08-02-2022 End: 08-02-2022 Patient encounter procedure Queta Hunt APRN.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 Work Phone: [facility] Comment on above: 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 Yaw Singh Work Phone: [facility] Work Phone: Start: 07-24-2022 End: 07-24-[address] Yaw Singh Work Phone: [facility] Start: 06-26-2022 Chart abstracting Yaw hernandez MD Work Phone: [facility] Comment on above: ER and Imaging Start: 06-26-2022 Telephone encounter Yaw Singh MD Work Phone: [facility] Comment on above: Patient Question Start: 06-23-2022 End: 06-23-2022 Emergency department patient visit Dr. Yaw Singh Work Phone: [facility]Emergency Department Start: 06-16-2022 Telephone encounter Yaw Singh MD Work Phone: N[facility] Comment on above: Appointment Start: 06-09-2022 End: 06-09-2022 Subsequent hospital visit by physician Xr [facility] Work Phone: Radiology Comment on above: Rib injury [S29.9XXA ] Start: 06-09-2022 End: 06-09-2022 Office outpatient visit 15 minutes Yaw Smith APRN.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 Work Phone: [facility] Comment on above: Rib injury (Primary Dx) Start: 05-29-2022 Telephone encounter Mari gill [employer] 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: Hematology/Oncology Comment on above: Future Appointment Start: 05-25-2022 End: 05-25-2022 ambulatory Mari Akhtar 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: Hematology/Oncology Comment on above: 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 Yaw Singh Work Phone: [facility] Start: 04-20-2022 ambulatory Yaw leonardo MD Work Phone: [facility] Comment on above: Hematuria Start: 03-19-2022 Telephone encounter Yaw Singh MD Work Phone: [facility] Comment on above: Results Start: 03-18-2022 Telephone encounter Edith Rivas [employer] 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: [facility] Comment on above: Results Start: 03-17-2022 End: 03-17-2022 Patient encounter procedure Dana Humphries 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: [facility] Comment on above: Sinus congestion (Pr imary Dx); Acute cough Start: 02-22-2022 End: 02-22-2022 ambulatory Mari Akhtar 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: Hematology/Oncology Comment on above: 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) Start: 02-22-2022 End: 02-22-2022 Patient encounter procedure Mari Akhtar APRN.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 Work Phone: [facility] Start: 02-21-2022 Telephone encounter Yaw Singh MD Work Phone: [facility] Comment on above: Results Start: 02-20-2022 End: 02-20-2022 Subsequent hospital visit by physician Ct [facility] (I-Stat) Work Phone: Cat Scan Comment on above: 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] Start: 02-09-2022 End: 02-09-2022 Patient encounter procedure Yaw Singh MD Work Phone: [facility] Comment on above: Medicare annual well ness visit, subsequent (Primary Dx); Essential hypertension, benign; Mixed hyperlipidemia; Gastroesophageal reflux disease, unspecified whether esophagitis present; Iron deficiency anemia due to chronic blood loss; Coronary artery disease involving [place] coronary artery of [place] heart without angina pectoris; Aortic valve stenosis, etiology of cardiac valve disease unspecified; Uncomplicated asthma, unspecified asthma severity, unspecified whether persistent; Situational depression; Esophageal adenocarcinoma (HCC); Malignant neoplasm of lower third of esophagus (HCC); Pleural effusion; Balanitis; Advance directive discussed with patient; Medication management; Prostate disorder; Decreased sexual desire; Encounter for immunization Start: 12-01-2021 End: 12-01-2021 ambulatory Mari Akhtar APRN.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 Work Phone: Hematology/Oncology Comment on above: 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) Start: 12-01-2021 End: 12-01-2021 Patient encounter procedure Mari Akhtar APRN.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 Work Phone: [facility] Start: 11-16-2021 Telephone encounter Richard pace DO Work Phone: Hematology/Oncology Comment on above: Patient Question Start: 11-09-2021 End: 11-09-2021 Patient encounter procedure Queta Gleason APRN.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 Work Phone: [facility] Comment on above: [...] encounter procedure Richard Jenkins DO Work Phone: [facility] Start: 10-20-2021 End: 10-20-2021 ambulatory Treatment 12 [facility] Work Phone: Hematology/Oncology Comment on above: Esophageal adenocarc inoma (HCC) (Primary Dx); Malignant neoplasm of lower third of esophagus (HCC) Start: 10-05-2021 End: 10-05-2021 ambulatory Richard Jenkins DO Work Phone: Hematology/Oncology Comment on above: 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); Pleural effusion Start: 10-05-2021 End: 10-05-2021 Patient encounter procedure Richard Jenkins [facility] Start: 10-03-2021 End: 10-03-2021 Subsequent hospital visit by physician Dina [facility] (I-Stat) Work Phone: Cat Scan Comment [...] Start: 09-08-2021 End: 09-08-2021 ambulatory Treatment 12 [facility] Work Phone: Hematology/Oncology Comment on [...] 08-25-2021 End: 08-25-2021 ambulatory Treatment Rm 11 [facility] Work Phone: Hematology/Oncology Comment on above: Esophageal adenocarc inoma (HCC) (Primary Dx); Malignant neoplasm of lower third of esophagus (HCC) Start: 08-24-2021 End: 08-24-2021 ambulatory Mari Akhtar APRN.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 Work Phone: Hematology/Oncology Comment on above: Esophageal adenocarc inoma (HCC) (Primary Dx) Start: 08-24-2021 End: 08-24-2021 Patient encounter procedure Mari Akhtar APRN.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 Work Phone: [facility] Start: 08-11-2021 End: 08-11-2021 ambulatory Treatment 11 [facility] Work Phone: Hematology/Oncology Comment on above: Esophageal adenocarc inoma (HCC) (Primary Dx); Malignant neoplasm of lower third of esophagus (HCC) Start: 08-04-2021 Orders Only Renetta Dubon nd, MD Work Phone: [facility] Comment on above: 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) Start: 07-28-2021 End: 07-28-2021 ambulatory Treatment Rm 10 [facility] Work Phone: Hematology/Oncology Comment on above: Esophageal adenocarc inoma (HCC) (Primary Dx); Malignant neoplasm of lower third of esophagus (HCC) Start: 07-28-2021 Telephone encounter Usha white PA-C Work Phone: [facility] Comment on above: Results Start: 07-27-2021 End: 07-27-2021 ambulatory Richard Jenkins DO Work Phone: Hematology/Oncology Comment on above: Esophageal adenocarc inoma (HCC) (Primary Dx); Iron deficiency anemia due to chronic blood loss; LEELA (acute kidney injury) (HCC); Other hypervolemia Start: 07-27-2021 End: 07-27-2021 Patient encounter procedure Richard Jenkins DO Work Phone: [facility] Start: 01-13-2021 Patient encounter procedure Richard Jenkins DO Work Phone: [facility] Work Phone: Start: 03-03-2020 End: 03-03-2020 Subsequent hospital visit by physician 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 Work Phone: [facility] [address] Comment on above: S/P TAVR (transcathe ter aortic valve replacement); Aortic valve stenosis, etiology of cardiac valve disease unspecified Start: 04-16-2019 End: 04-16-2019 Subsequent hospital visit by physician 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 [employer] D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 Work Phone: [facility] [address] Comment on above: Aortic valve stenosi s, etiology of cardiac valve disease unspecified Start: 04-16-2019 End: 04-16-2019 Subsequent hospital visit by physician Vern Hrading [employer] D[employer] - 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 Work Phone: [facility] [address] Comment on above: Severe aortic stenos is; Coronary artery disease involving [place] coronary artery of [place] heart without angina pectoris; Essential hypertension; Obesity (BMI 30.0-34.9) Start: 03-03-2019 End: 03-04-2019 Evaluation and management of inpatient Tyshawn Magallanes Work Phone: [facility] Comment on above: Arrived Start: 02-21-2019 End: 02-21-2019 Subsequent hospital visit by physician Krys Toscano Work Phone: [facility] [address] Comment on above: Nonrheumatic aortic valve stenosis Start: 02-21-2019 End: 02-21-2019 Subsequent hospital visit by physician Tyshawn Magallanes Work Phone: [facility] Comment on above: Nonrheumatic aortic valve stenosis Start: 02-18-2019 End: 02-18-2019 Subsequent hospital visit by physician Tyshawn Magallanes Work Phone: [facility] [address] Comment on above: Nonrheumatic aortic valve stenosis Start: 11-24-2017 Patient encounter Reynold morales:[facility] Start: 07-20-2017 End: 07-20-2017 Emergency department patient visit KATHI BEASLEY [facility] Procedures Date Procedure Procedure Detail Performing Clinician [...] Comment: Specimen Type: BLOOD SPEC IMENOrdering Facility: [facility] Address: [address] [place] [address] Performed By: #### T SCR ####CC MAIN BLOOD BANKCLIA [id number] [address] [place] Start: 05-07-2024 Mri [...] Start: 08-02-2022 Esophagogastroduodenoscopy transoral diagnostic Queta Hunt 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: Start: 07-24-2022 Diagnostic radiography of abdomen Dr. Neal Singh Work Phone: Start: 06-23-2022 Computed tomography of abdomen and pelvis with contrast Dr. Yaw Singh Work Phone: Start: 06-09-2022 Radex ribs uni w/posteroant ch minimum 3 views Yaw Smith [employer] 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: Start: 05-22-2022 Ct abdomen & pelvis w/contrast material Mari Akhtar [employer] 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: Start: 05-22-2022 Ct thorax w/contrast material Mari Carp bridget [employer] 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: Start: 02-20-2022 Ct abdomen & pelvis w/contrast material Richard Mendezi DO Work Phone: Start: 02-20-2022 Ct thorax w/contrast material Richard Tubbs ci DO Work Phone: Start: 02-20-2022 Lipid 1996 panel - Serum or Plasma Ct (I -Stat) Work Phone: Start: 02-09-2022 INFLUENZA SEASONAL QUADRIVALENT HIGH DOSE AGE 65+ Yaw Singh MD Work Phone: Start: 11-09-2021 Esophagogastroduodenoscopy transoral diagnostic Rosibel [employer] 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: Start: 10-03-2021 Ct abdomen & pelvis w/contrast material [place] Akhtar [employer] 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: Start: 10-03-2021 Ct thorax w/contrast material [place] Carp enter [employer] 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: Start: 09-07-2021 Esophagogastroduodenoscopy transoral diagnostic Renetta Radford MD Work Phone: Start: 06-01-2020 Colonoscopy Richard Goi DO Work Phone: Start: 03-03-2020 Echo tthrc r-t 2d w/wom-mode compl spec&colr d 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 Work Phone: Start: 04-16-2019 Echo tthrc r-t 2d w/wom-mode compl spec&colr d 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 Work Phone: Start: 04-16-2019 Basic metabolic panel calcium total 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 [employer] D[employer] - 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 Work Phone: Start: 03-04-2019 Echo tthrc r-t [...] Yaw Singh Work Phone: Comment on above: ZKL-ZMN-Qfpndk RPDA w/ 2.25 x 16 mm Prom us Premier, APPLE-Distal RCA w/ 4.0 x 16 mm Promus Premier and APPLE-Mid RCA w/ 4.0 x 16 mm Promus Premier 07/23/2014; WHV-SPY-Nbmzmm SVG-D1 w/ 3.5 x 18 mm Xience [...] bypass grafting S/P CABG x 4 [facility] Work Phone: Plan of Treatment Date Care Activity Detail Author Start: 05-07-2034 Urine microalbumin profile DTaP,Tdap,Td Vaccine (5 - Td or Tdap) [facility] Start: 10-07-2029 Lipid panel Lipid Screening [facility] Start: 04-17-2029 Lipid panel Lipid Screening [facility] Start: 10-04-2028 Lipid panel Lipid Screening [facility] Start: 06-18-2028 Lipid panel Lipid Screening [facility] Start: 01-29-2028 DTaP/Tdap/Td vaccine (3 - Td) DTaP/Tdap/Td vaccine (3 - Td) [place] Start: 01-29-2028 Urine microalbumin profile [facility] Start: 10-08-2027 Diabetes Screening Diabetes Screening [facility] Start: 06-12-2027 Diabetes Screening Diabetes Screening [facility] Start: 04-17-2027 Diabetes Screening Diabetes Screening [facility] Start: 02-20-2027 Lipid 1996 panel - Serum or Plasma Lipid Screening [facility] Start: 02-20-2027 Lipid panel Lipid Screening [facility] Start: 02-20-2027 LIPID SCREEN LIPID SCREEN [facility] Start: 02-20-2027 PROSTATE CANCER SCREENING DISCUSSION PROSTATE CANCER SCREENING DISCUSSION [facility] Start: 02-20-2027 Prostate specific antigen measurement Prostate Cancer Screening Discussion [facility] Start: 12-06-2026 Colon cancer screen colonoscopy Colon cancer screen colonoscopy [place], [place] Start: 12-06-2026 Screening for malignant neoplasm of colon Colon cancer screen colonoscopy [place], [place] Start: 10-04-2026 Diabetes Screening Diabetes Screening [facility] Start: 09-12-2026 Diabetes Screening Diabetes Screening [facility] Start: 07-27-2026 LIPID SCREEN LIPID SCREEN [facility] Start: 06-18-2026 Diabetes Screening Diabetes Screening [facility] Start: 02-13-2026 Diabetes Screening Diabetes Screening [facility] Start: 01-20-2026 PROSTATE CANCER SCREENING DISCUSSION PROSTATE CANCER SCREENING DISCUSSION [facility] Start: 01-07-2026 LIPID SCREEN LIPID SCREEN [facility] Start: 10-07-2025 Annual PCP Team Chronic Disease Visit Annual PCP Team Chronic Disease Visit [facility] Start: 10-07-2025 Creatinine measurement Serum Creatinine [facility] Start: 10-07-2025 Hepatitis B surface antibody level LDL Cholesterol [facility] Start: 09-22-2025 Annual PCP Team Chronic Disease Visit Annual PCP Team Chronic Disease Visit [facility] Start: 09-12-2025 BP Controlled (<130/80) BP Controlled (<130/80) [facility] Start: 08-22-2025 DIABETES SCREEN DIABETES SCREEN [facility] Start: 08-22-2025 Diabetes Screening Diabetes Screening [facility] Start: 08-20-2025 BP Controlled (<130/80) BP Controlled (<130/80) [facility] Start: 08-05-2025 BP Controlled (<130/80) BP Controlled (<130/80) [facility] Start: 06-30-2025 Annual PCP Team Chronic Disease Visit Annual PCP Team Chronic Disease Visit [facility] Start: 06-30-2025 BP Controlled (<130/80) BP Controlled (<130/80) [facility] Start: 06-11-2025 BP Controlled (<130/80) BP Controlled (<130/80) [facility] Start: 06-11-2025 Complete blood count Hemoglobin/Hematocrit [facility] Start: 06-11-2025 Creatinine measurement Serum Creatinine [facility] Start: 06-01-2025 Colonoscopy COLONOSCOPY [facility] Start: 06-01-2025 COLORECTAL CANCER SCREENING COLORECTAL CANCER SCREENING [facility] Start: 06-01-2025 Screening for malignant neoplasm of colon [facility] Start: 05-22-2025 DIABETES SCREEN DIABETES SCREEN [facility] Start: 05-11-2025 End: 05-11-2025 ambulatory 05/11/2025 9:50 AM EST Visit (SP) Office Hematology/Oncology [address] [place] [id number] Richard Jenkins DO [address] [place] [id number] 6MO OV/CT & LABS 05/04* Hematology/Oncology Comment on above: 6MO OV/CT & LABS 05/04* Start: 05-07-2025 BP Controlled (<130/80) BP Controlled (<130/80) [facility] Start: 05-04-2025 End: 05-04-2025 Patient encounter procedure Cat Scan Comment on above: 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] Start: 05-04-2025 End: 05-04-2025 ambulatory 05/04/2025 9:00 AM EST Results Only [facility] [address] [place] [id number] CBC/CMP [facility] Comment on above: CBC/CMP Start: 04-17-2025 Complete blood count Hemoglobin/Hematocrit [facility] Start: 04-17-2025 Creatinine measurement Serum Creatinine [facility] Start: 04-17-2025 Hepatitis B surface antibody level LDL Cholesterol [facility] Start: 03-11-2025 Annual PCP Team Chronic Disease Visit Annual PCP Team Chronic Disease Visit [facility] Start: 03-11-2025 Anxiety Screening Anxiety Screening [facility] Start: 03-11-2025 BP Controlled (<130/80) BP Controlled (<130/80) [facility] in Start: 03-11-2025 Medicare Annual Wellness Visit Medicare Annual Wellness Visit [facility] Start: 03-11-2025 End: 03-11-2025 Patient encounter procedure 03/11/2025 8:00 AM EST Office Visit Family [facility] Che[facility] [address] [place] [address] Yaw Singh MD [address] [place], [place] [id number] Medicare Wellness [facility] Comment on above: Medicare Wellness Start: 02-20-2025 DIABETES SCREEN DIABETES SCREEN [facility] Start: 01-30-2025 BP Controlled (<130/80) BP Controlled (<130/80) [facility] Start: 01-16-2025 Annual PCP Team Chronic Disease Visit Annual PCP Team Chronic Disease Visit [facility] Start: 01-16-2025 BP Controlled (<130/80) BP Controlled (<130/80) [facility] Start: 01-05-2025 End: 01-05-2025 Patient encounter procedure 01/05/2025 7:00 AM EDT Office Visit [facility] Cheema [address] [place] [address] Yaw Singh MD [address] [place], [place] [id number] Review outside testing [facility] Comment on above: Review outside testing BMD Start: 01-02-2025 Annual PCP Team Chronic Disease Visit Annual PCP Team Chronic Disease Visit [facility] Start: 01-02-2025 BP Controlled (<130/80) BP Controlled (<130/80) [facility] Start: 12-08-2024 Influenza vaccination Influenza Vaccine (#1) [facility] Start: 12-03-2024 MR Lumbar spine [facility] Start: 12-03-2024 MRI of lumbar spine Spine Lumbar (Routine) [facility] Start: 11-20-2024 End: 11-20-2024 Patient encounter procedure 11/20/2024 1:00 PM EDT Office Visit [facility] [address] [place] [address] Gloria Torres APRN.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 [address] [facility] [place] [address] Lumbar back pain [M54.50]; Compression fracture of lumbar vertebra with routine healing, unspecified lumbar vertebral level, subsequent encounter [S32.000D]; Closed wedge compression fracture of T10 vertebra with routine healing, subsequent encounter [S22.070D [facility] Comment on above: Lumbar back pain [M54.50]; Compression f racture of lumbar vertebra with routine healing, unspecified lumbar vertebral level, subsequent encounter [S32.000D]; Closed wedge compression fracture of T10 vertebra with routine healing, subsequent encounter [S22.070D Start: 11-14-2024 X-ray of lumbar spine, two or three views Lumbar Spine 2 or 3 Views [facility] Start: 11-07-2024 End: 11-07-2024 ambulatory 11/07/2024 9:40 AM EDT Visit (SP) Office Hematology/Oncology [address] [place] [address] Richard Jenkins DO [address] [place] [address] 6 MO OV/MRI 05/07 &CT 11/07* Hematology/Oncology Comment on above: 6 MO OV/MRI 05/07 &CT 11/07* Start: 11-02-2024 DIABETES SCREEN DIABETES SCREEN [facility] Start: 10-31-2024 End: 10-31-2024 Patient encounter procedure Cat Scan Comment on above: 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] Start: 10-23-2024 End: 10-23-2024 Patient encounter procedure 10/23/2024 3:00 PM EDT Office Visit Endocrinology [address] [place] [address] Delicia Díaz MD [address] [place] [address] Gynecomastia [N62] Endocrinology Comment on above: Gynecomastia [N62] Start: 10-20-2024 DIABETES SCREEN DIABETES SCREEN [facility] Start: 10-15-2024 Patient discharge [facility] Start: 10-07-2024 End: 01-06-2025 Basic metabolic 2000 panel - Serum or Plasma [facility] Comment on above: Expected: 10/07/2024, Expires: 5 Start: 10-07-2024 End: 07-09-2025 LIPID PANEL, NONFASTING [facility] Comment on above: Expected: 10/07/2024, Expires: 6 Start: 10-07-2024 End: 10-07-2024 Patient encounter procedure 10/07/2024 12:40 PM EDT Office Visit [facility] [address] [place] [address] Usha Mcgovern PA-C [address] [place] [address] 6 month follow up [facility] Comment on above: 6 month follow up Start: 10-04-2024 Annual PCP Team Chronic Disease Visit Annual PCP Team Chronic Disease Visit [facility] Start: 10-04-2024 Creatinine measurement Serum Creatinine [facility] Start: 10-04-2024 Hepatitis B surface antibody level LDL Cholesterol [facility] Start: 10-03-2024 DIABETES SCREEN DIABETES SCREEN [facility] Start: 09-22-2024 End: 09-22-2024 Patient encounter procedure 09/22/2024 7:20 AM EDT Office Visit Family Jaki Cheema [address] [place] [address] Yaw Singh MD [address] [place] [id number] Discuss MRI result and gynecomastia. [facility] Comment on above: Discuss MRI result and gynecomastia. Start: 09-17-2024 [facility] Start: 09-12-2024 Annual PCP Team Chronic Disease Visit Annual PCP Team Chronic Disease Visit [facility] Start: 09-12-2024 BP Controlled (<130/80) BP Controlled (<130/80) [facility] Start: 09-11-2024 End: 09-11-2024 Patient encounter procedure [facility] [place] Comment on above: 6 month follow up Start: 09-08-2024 DIABETES SCREEN DIABETES SCREEN [facility] Start: 08-27-2024 End: 08-27-2024 Patient encounter procedure Mammogram Comment on above: Dx: Gynecomastia [N62]; Subareolar mass of right breast [N63.41]; Esophageal adenocarcinoma (HCC) [C15.9] Comp- Gynecomastia, Subareolar mass Rt; Esophageal adenocarcinoma Start: 08-24-2024 DIABETES SCREEN DIABETES SCREEN [facility] Start: 08-11-2024 DIABETES SCREEN DIABETES SCREEN [facility] Start: 07-27-2024 DIABETES SCREEN DIABETES SCREEN [facility] Start: 07-11-2024 BP Controlled (<130/80) BP Controlled (<130/80) [facility] Start: 06-30-2024 Anesthesia vascular shunt/shunt revision ANESTH VASCULAR SHUNT SURG [facility] Start: 06-30-2024 Arteriovenous anastomosis open direct AV FUSION DIRECT ANY SITE [facility] Start: 06-30-2024 End: 09-29-2024 Choriogonadotropin.beta subunit [Units/volume] in Serum or Plasma [facility] Comment on above: Expected: 06/30/2024, Expires: Start: 06-30-2024 End: 09-29-2024 Estradiol (E2) [Mass/volume] in Serum or Plasma [facility] Comment on above: Expected: 06/30/2024, Expires: Start: 06-30-2024 End: 09-29-2024 Follitropin [Units/volume] in Serum or Plasma [facility] Comment on above: Expected: 06/30/2024, Expires: Start: 06-30-2024 End: 09-29-2024 Lutropin [Units/volume] in Serum or Plasma [facility] Comment on above: Expected: 06/30/2024, Expires: Start: 06-30-2024 End: 09-29-2024 Prolactin [Mass/volume] in Serum or Plasma [facility] Comment on above: Expected: 06/30/2024, Expires: Start: 06-30-2024 End: 09-29-2024 Testosterone [Mass/volume] in Serum or Plasma [facility] Comment on above: Expected: 06/30/2024, Expires: Start: 06-30-2024 End: 09-29-2024 Thyrotropin [Units/volume] in Serum or Plasma [facility] Work Phone: Comment on above: Expected: 06/30/2024, Expires: Start: 06-30-2024 Patient discharge [facility] Start: 06-20-2024 End: 06-20-2024 Social Work 06/20/2024 10:30 AM EDT Social Work [facility] [address] [address] [address] [place] [address] PRE KID EVAL - PHONE CALL [facility] Comment on above: PRE KID EVAL - PHONE CALL Start: 06-18-2024 Annual PCP Team Chronic Disease Visit Annual PCP Team Chronic Disease Visit [facility] Start: 06-18-2024 Covid-19 Vaccine () Covid-19 Vaccine () [facility] Comment on above: Postponed from 12/08/2022 (Declined at t his time) Start: 06-18-2024 Hepatitis B surface antibody level LDL Cholesterol [facility] Start: 06-11-2024 End: 06-11-2024 ambulatory 06/11/2024 4:00 PM EST Results Only [facility] [place] [facility] [address] [place] [address] lab Main [place] [facility] Draw Station Comment on above: lab Start: 06-11-2024 End: 09-10-2024 ALGN RABBIT EPITHELIUM IGE [facility] Comment on above: Expected: 06/11/2024, Expires: Start: 06-11-2024 End: 09-10-2024 BLOOD TB SCREEN [facility] Comment on above: Expected: 06/11/2024, Expires: Start: 06-11-2024 End: 09-10-2024 Chronic hepatitis differentiation between hepatitis B and C virus panel - Serum or Plasma [facility] Comment on above: Expected: 06/11/2024, Expires: Start: 06-11-2024 End: 09-10-2024 Comprehensive metabolic 2000 panel - Serum or Plasma [facility] Comment on above: Expected: 06/11/2024 (Approximate), Expi res: 09/10/2024 Start: 06-11-2024 End: 09-10-2024 Cytomegalovirus IgG Ab [Units/volume] in Serum or Plasma [facility] [employer] Work Phone: Comment on above: Expected: 06/11/2024, Expires: Start: 06-11-2024 End: 09-10-2024 Bety Marie virus capsid IgG Ab [Units/volume] in Serum [facility] Comment on above: Expected: 06/11/2024, Expires: Start: 06-11-2024 End: 09-10-2024 HEPATITIS A ANTIBODY, IGG [facility] Comment on above: Expected: 06/11/2024, Expires: Start: 06-11-2024 End: 09-10-2024 HIV 1+2 Ab [Presence] in Serum or Plasma by Immunoassay [facility] Comment on above: Expected: 06/11/2024, Expires: Start: 06-11-2024 End: 09-10-2024 Parathyrin.intact [Mass/volume] in Serum or Plasma [facility] Comment on above: Expected: 06/11/2024 (Approximate), Expi res: 09/10/2024 Start: 06-11-2024 End: 09-10-2024 Phosphate [Mass/volume] in Serum or Plasma [facility] Comment on above: Expected: 06/11/2024 (Approximate), Expi res: 09/10/2024 Start: 06-11-2024 End: 09-10-2024 Prostate Specific Ag Free [Mass/volume] in Serum or Plasma [facility] Comment on above: Expected: 06/11/2024 (Approximate), Expi res: 09/10/2024 Start: 06-11-2024 End: 09-10-2024 RUBEOLA (MEASLES)IGG [facility] Comment on above: Expected: 06/11/2024, Expires: Start: 06-11-2024 End: 09-10-2024 STRONGYLOIDES IGG BL [facility] Comment on above: Expected: 06/11/2024, Expires: Start: 06-11-2024 End: 09-10-2024 SYPHILIS TREPONEMAL W/REFLEX [facility] Comment on above: Expected: 06/11/2024, Expires: Start: 06-11-2024 End: 09-10-2024 TRANSPLANT CONFIRM ABO/RH [facility] Comment on above: Expected: 06/11/2024 (Approximate), Expi res: 09/10/2024 Start: 06-11-2024 End: 09-10-2024 TYPE + SCREEN [facility] Comment on above: Expected: 06/11/2024 (Approximate), Expi res: 09/10/2024 Start: 06-11-2024 End: 09-10-2024 VARICELLA ZOSTER IGG [facility] Comment on above: Expected: 06/11/2024, Expires: Start: 06-11-2024 End: 06-11-2024 Nutrition therapy 06/11/2024 9:45 AM EST Education Nutrition Therapy [address] [address] [address], RD [address] [place] [address] pre kid eval [facility] Comment on above: pre kid eval Start: 06-11-2024 End: 06-11-2024 Patient encounter procedure [facility] Comment on above: pre kid eval Start: 05-14-2024 End: 05-14-2024 Patient encounter procedure 05/14/2024 3:00 PM EST Office Visit Pulmonary Medicine [address] [place] [address] Helen Blair MD 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] Radiology Comment on above: 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] Start: 05-06-2024 End: 05-06-2024 Patient encounter procedure 05/06/2024 2:30 PM EST Office Visit Pulmonary Medicine [facility] [place] [address] [place] [address] Helen Blair MD [address] [address] 3 month follow up Pulmonary Medicine Comment on above: 3 month follow up Start: 05-02-2024 End: 05-02-2024 ambulatory 05/02/2024 3:30 PM EST Visit (SP) Office Hematology/Oncology [address] [place], [place] [phone] Richard Jenkins, [address] [place], [place] [phone] 3 MO OV/LAB & CT 04/17* Hematology/Oncology Comment on above: 3 MO OV/LAB & CT 04/17* Start: 04-17-2024 End: 04-17-2024 ambulatory 04/17/2024 8:30 AM EST Visit (SP) Office Hematology/Oncology [address] [place] [address] Richard Jenkins DO [address] [place] [address] 3 MO OV/LAB & CT 04/10* Hematology/Oncology Comment on above: 3 MO OV/LAB & CT 04/10* Start: 04-10-2024 End: 04-10-2024 Patient encounter procedure Cat Scan Comment on above: 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] Start: 04-10-2024 End: 04-10-2024 ambulatory [facility] Comment on above: CREATININE(S)* CREATININE(S)/ coppe r level* CBC/RETIC/CREATININE (S)/ copper level* Start: 04-09-2024 Advance Directive Discussion Advance Directive Discussion [facility] Start: 03-30-2024 Annual PCP Team Chronic Disease Visit Annual PCP Team Chronic Disease Visit [facility] Start: 03-30-2024 BP Controlled (<130/80) BP Controlled (<130/80) [facility] Start: 03-30-2024 RSV Vaccine (1 - 1-dose 60+ series) RSV Vaccine (1 - 1-dose 60+ series) [facility] Comment on above: Postponed from 2014 (Insurance Cov era) Start: 03-30-2024 RSV Vaccine (1 - Risk 60-74 years 1-dose series) RSV Vaccine (1 - Risk 60-74 years 1-dose series) [facility] Comment on above: Postponed from 2014 (Insurance Cov erage) Start: 03-30-2024 Shingrix Vaccine (1 of 2) Shingrix Vaccine (1 of 2) [facility] Comment on above: Postponed from 2004 (Insurance Cov erage) Start: 03-12-2024 End: 12-04-2024 Patient encounter procedure 03/12/2024 8:00 AM EST Office Visit [facility] [place] [address] [place] [address] Yaw Singh MD [address] [place] [address] Medicare wellness [facility] Comment on above: Medicare wellness Start: 03-11-2024 End: 06-10-2024 Comprehensive metabolic 2000 panel - Serum or Plasma COMPREHENSIVE METABOLIC PANEL Lab Routine Essential hypertension, benign Mixed hyperlipidemia CKD (chronic kidney disease) stage 4, GFR 15-29 ml/min ([facility]) Expected: 03/11/2024, Expires: 06/10/2024 [facility] Comment on above: Expected: 03/11/2024, Expires: Start: 03-11-2024 End: 06-10-2024 Hemoglobin A1c in Blood HEMOGLOBIN A1C Lab Routine Elevated blood sugar Expected: 03/11/2024, Expires: 06/10/2024 [facility] Comment on above: Expected: 03/11/2024, Expires: Start: 03-11-2024 End: 06-10-2024 LIPID PANEL, NONFASTING LIPID PANEL, NONFASTING Lab Routine Essential hypertension, benign Mixed hyperlipidemia Expected: 03/11/2024, Expires: 06/10/2024 [facility] [employer] Work Phone: Comment on above: Expected: 03/11/2024, Expires: Start: 03-11-2024 End: 06-10-2024 Magnesium [Mass/volume] in Serum or Plasma MAGNESIUM Lab Routine Gastroesophageal reflux disease, unspecified whether esophagitis present Medication management Expected: 03/11/2024, Expires: 06/10/2024 [facility] Comment on above: Expected: 03/11/2024, Expires: Start: 03-11-2024 End: 06-10-2024 Prostate specific Ag [Mass/volume] in Serum or Plasma PROSTATE-SPECIFIC ANTIGEN DIAGNOSTIC Lab Routine Prostate disorder Expected: 03/11/2024, Expires: 06/10/2024 [facility] Comment on above: Expected: 03/11/2024, Expires: Start: 03-11-2024 End: 06-10-2024 Thyrotropin [Units/volume] in Serum or Plasma THYROID STIMULATING HORMONE Lab Routine Cold intolerance Expected: 03/11/2024, Expires: 06/10/2024 [facility] Comment on above: Expected: 03/11/2024, Expires: Start: 03-11-2024 End: 03-11-2024 Patient encounter procedure 03/11/2024 9:40 AM EST Office Visit [facility] [place] [address] [place], [place] [id number] Yaw Singh MD [address] [place], [place] [phone] Medicare Wellness [facility] Comment on above: Medicare Wellness Start: 03-07-2024 End: 06-06-2024 CBC W Auto Differential panel - Blood COMPLETE BLOOD COUNT AND DIFFERENTIAL Lab Routine Iron deficiency anemia due to chronic blood loss Expected: 03/07/2024, Expires: 06/06/2024 [facility] Comment on above: Expected: 03/07/2024, Expires: Start: 03-07-2024 End: 06-06-2024 Cobalamin (Vitamin B12) [Mass/volume] in Serum or Plasma VITAMIN B12 Lab Routine Gastroesophageal reflux disease, unspecified whether esophagitis present Medication management Expected: 03/07/2024, Expires: 06/06/2024 [facility] Comment on above: Expected: 03/07/2024, Expires: Start: 03-07-2024 End: 06-06-2024 Comprehensive metabolic 2000 panel - Serum or Plasma COMPREHENSIVE METABOLIC PANEL Lab Routine Essential hypertension, benign Mixed hyperlipidemia Expected: 03/07/2024, Expires: 06/06/2024 [facility] Work Phone: Comment on above: Expected: 03/07/2024, Expires: Start: 03-07-2024 End: 06-06-2024 Iron and Iron binding capacity panel - Serum or Plasma IRON AND TIBC Lab Routine Iron deficiency anemia due to chronic blood loss Expected: 03/07/2024, Expires: 06/06/2024 [facility] Comment on above: Expected: 03/07/2024, Expires: Start: 03-07-2024 End: 06-06-2024 LIPID PANEL, NONFASTING LIPID PANEL, NONFASTING Lab Routine Essential hypertension, benign Mixed hyperlipidemia Coronary artery disease involving [place] coronary artery of [place] heart without angina pectoris Expected: 03/07/2024, Expires: 06/06/2024 [facility] Comment on above: Expected: 03/07/2024, Expires: Start: 03-07-2024 End: 06-06-2024 Magnesium [Mass/volume] in Serum or Plasma MAGNESIUM Lab Routine Gastroesophageal reflux disease, unspecified whether esophagitis present Medication management Expected: 03/07/2024, Expires: 06/06/2024 [facility] Comment on above: Expected: 03/07/2024, Expires: Start: 03-07-2024 End: 06-06-2024 Urinalysis complete panel - Urine URINALYSIS, WITH MICROSCOPIC Lab Routine Essential hypertension, benign Mixed hyperlipidemia Expected: 03/07/2024, Expires: 06/06/2024 [facility] Comment on above: Expected: 03/07/2024, Expires: Start: 02-20-2024 Annual PCP Team Chronic Disease Visit Annual PCP Team Chronic Disease Visit [facility] Start: 02-04-2024 End: 05-05-2024 Bacteria identified in Body fluid by Culture BODY FLUID CULTURE AND GRAM STAIN Microbiology Routine Pleural effusion Expected: 02/04/2024, Expires: 05/05/2024 [facility] Comment on above: Expected: 02/04/2024, Expires: Start: 02-04-2024 End: 05-05-2024 BODY FLUID CELL COUNT BODY FLUID CELL COUNT Lab Routine Pleural effusion Expected: 02/04/2024, Expires: 05/05/2024 [facility] Work Phone: Comment on above: Expected: 02/04/2024, Expires: Start: 02-04-2024 End: 05-05-2024 CYTOLOGY NON-STAKING PRESS OPERATOR CYTOLOGY NON-STAKING PRESS OPERATOR Lab Routine Pleural effusion Expected: 02/04/2024, Expires: 05/05/2024 [facility] Comment on above: Expected: 02/04/2024, Expires: Start: 02-04-2024 End: 05-05-2024 Glucose [Mass/volume] in Body fluid GLUCOSE, BODY FLUID Lab Routine Pleural effusion Expected: 02/04/2024, Expires: 05/05/2024 [facility] Comment on above: Expected: 02/04/2024, Expires: Start: 02-04-2024 End: 05-05-2024 Lactate dehydrogenase [Enzymatic activity/volume] in Body fluid LACTATE DEHYDROGENASE, BODY FLUID Lab Routine Pleural effusion Expected: 02/04/2024, Expires: 05/05/2024 [facility] Comment on above: Expected: 02/04/2024, Expires: Start: 02-04-2024 End: 05-05-2024 Lactate dehydrogenase [Enzymatic activity/volume] in Serum or Plasma LACTATE DEHYDROGENASE Lab Routine Pleural effusion Expected: 02/04/2024, Expires: 05/05/2024 [facility] Comment on above: Expected: 02/04/2024, Expires: Start: 02-04-2024 End: 05-05-2024 Microorganism identified in Unspecified specimen by Culture AFB CULT + STAIN Microbiology Routine Pleural effusion Expected: 02/04/2024, Expires: 05/05/2024 [facility] Comment on above: Expected: 02/04/2024, Expires: Start: 02-04-2024 End: 05-05-2024 pH of Body fluid PH BODY FLUID Lab Routine Pleural effusion Expected: 02/04/2024, Expires: 05/05/2024 [facility] Comment on above: Expected: 02/04/2024, Expires: Start: 02-04-2024 End: 05-05-2024 Protein [Mass/volume] in Body fluid PROTEIN, BODY FLUID Lab Routine Pleural effusion Expected: 02/04/2024, Expires: 05/05/2024 [facility] Comment on above: Expected: 02/04/2024, Expires: Start: 02-04-2024 End: 05-05-2024 Protein [Mass/volume] in Serum or Plasma PROTEIN, TOTAL Lab Routine Pleural effusion Expected: 02/04/2024, Expires: 05/05/2024 [facility] Comment on above: Expected: 02/04/2024, Expires: Start: 01-31-2024 End: 01-31-2024 Patient encounter procedure 01/31/2024 9:30 AM EDT Office Visit Pulmonary Medicine [address] [place] [address] Zachary Berkowitz APRN.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 [address] [place] [address] ?ASTHMA//6 month follow up Pulmonary Medicine Comment [...] (Vitamin B12) [Mass/volume] in Serum or Plasma [facility] Comment on above: Expected: 01/15/2024, Expires: Start: 01-15-2024 End: 04-15-2024 COPPER BLOOD [facility] Comment on above: Expected: 01/15/2024, Expires: Start: 01-15-2024 End: 04-15-2024 Ferritin [Mass/volume] in Serum or Plasma [facility] Comment on above: Expected: 01/15/2024, Expires: Start: 01-15-2024 End: 04-15-2024 Folate [Mass/volume] in Serum or Plasma [facility] Comment on above: Expected: 01/15/2024, Expires: Start: 01-15-2024 End: 04-15-2024 Iron and Iron binding capacity panel - Serum or Plasma [facility] Work Phone: Comment on above: Expected: 01/15/2024, Expires: Start: 01-15-2024 End: 04-15-2024 Transferrin receptor.soluble [Mass/volume] in Serum or Plasma [facility] Comment on above: Expected: 01/15/2024, Expires: Start: 01-15-2024 End: 01-15-2024 ambulatory 01/15/2024 8:50 AM EDT Visit (SP) Office Hematology/Oncology [address] [place], [place] [id number] Richard Jenkins DO [address], [place] [phone] 2MO OV * Hematology/Oncology Comment on above: 2MO OV * Start: 01-10-2024 End: 04-10-2024 CBC W Auto Differential panel - Blood COMPLETE BLOOD COUNT AND DIFFERENTIAL Lab Routine Anemia, unspecified type Expected: 01/10/2024, Expires: 04/10/2024 [facility] Work Phone: Comment on above: Expected: 01/10/2024, Expires: Start: 01-03-2024 End: 04-03-2024 Iron and Iron binding capacity panel - Serum or Plasma [facility] Work Phone: Comment on above: Expected: 01/03/2024, Expires: Start: 01-03-2024 End: 01-03-2024 Patient encounter procedure 01/03/2024 11:00 AM EDT Office Visit Family Medicine [place] [address] [place], [place] [id number] Yaw Singh MD [address] [place] [address] Discharged from [place] [facility] 12/27/23 - New dialysis, Respiratory Failure [facility] Comment on above: Discharged from [place] [facility] 4 - New dialysis, Respiratory Failure Start: 01-02-2024 End: 01-02-2024 ambulatory 01/02/2024 11:30 AM EDT Visit (SP) Office Hematology/Oncology [address] [place] [address] Richard Jenkins DO [address] [place] [address] 2MO OV * Hematology/Oncology Comment on above: 2MO OV * Start: 01-01-2024 End: 04-01-2024 CBC W Auto Differential panel - Blood COMPLETE BLOOD COUNT AND DIFFERENTIAL Lab Routine Excessive bleeding Expected: 01/01/2024, Expires: 04/01/2024 [facility] Work Phone: Comment on above: Expected: 01/01/2024, Expires: Start: 12-09-2023 Covid-19 Vaccine ( season) Covid-19 Vaccine ( season) [facility] Start: 12-09-2023 Covid-19 Vaccine ( season) Covid-19 Vaccine ( season) [facility] Start: 12-09-2023 Influenza vaccination Influenza Vaccine (#1) [facility] Start: 11-27-2023 End: 11-27-2023 Patient encounter procedure 11/27/2023 3:40 PM EDT Office Visit Endocrinology [address] [place] [phone] Delicia Díaz MD [address] [place] [phone] medication consult Endocrinology Comment on above: medication consult Start: 10-09-2023 End: 10-09-2023 Patient encounter procedure 10/09/2023 8:45 AM EDT Office Visit Pulmonary Medicine [address] [place] [address] Helen Blair MD 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] Pulmonary Medicine Comment on above: Chronic pleural effusion [J90]; Malignan t neoplasm of lower third of esophagus (HCC) [C15.5] Start: 10-05-2023 End: 10-05-2023 ambulatory 10/05/2023 12:00 PM EDT OT/PT/Speech Visit [facility] [address] [place], [place] [id number] Tye Flores, PT [address] [place] [address] S22.070D (ICD-10-CM) - Closed wedge compression fracture of T10 vertebra with routine healing, subsequent encounter [facility] Comment on above: S22.070D (ICD-10-CM) - Closed wedge comp ression fracture of T10 vertebra with routine healing, subsequent encounter Start: 10-05-2023 End: 10-05-2023 Patient encounter procedure 10/05/2023 9:40 AM EDT Office Visit Family [facility] [address] [place] [address] Yaw Singh MD [address] [place] [address] 6 month follow up Family [facility] Comment on above: 6 month follow up Start: 10-04-2023 End: 10-04-2023 Patient encounter procedure 10/04/2023 7:40 AM EDT Office Visit Family [facility] [place] [address] [place] [address] Danielle Kelly APRN.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 [address] [place] [address] 6 month follow up Family [facility] Comment on above: 6 month follow up Start: 09-28-2023 End: 12-28-2023 Urinalysis complete panel - Urine URINALYSIS, WITH MICROSCOPIC Lab Routine Nephrolithiasis Expected: 09/28/2023, Expires: 12/28/2023 [facility] Comment on above: Expected: 09/28/2023, Expires: Start: 09-25-2023 End: 09-25-2023 Admission to same day surgery center 09/25/2023 12:30 PM EDT - 09/25/2023 1:49 PM EDT Surgery Angio [address] [place] [address] Luke Villalobos MD [address], [address] [address] BONE BIOPSY TROCAR/NEEDLE DEEP Angio Comment on above: BONE BIOPSY TROCAR/NEEDLE DEEP Start: 09-25-2023 End: 09-25-2023 Biopsy bone trocar/needle deep BONE BIOPSY TROCAR/NEEDLE DEEP Malignant neoplasm of lower third of esophagus (HCC) Abnormal MRI, spine 09/25/2023 12:30 PM EDT ANGIO HB6 Start: 09-25-2023 Subsequent hospital visit by physician 09/25/2023 12:30 PM EDT Hospital Encounter Angio [address] [place] [address] Luke Villalobos MD [address], [address] [address] 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] Angio Comment on above: 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] Start: 09-21-2023 End: 09-21-2023 Patient encounter procedure 09/21/2023 8:00 AM EDT Office Visit Cardiology [address] [place] [address] Pleural effusion [J90]; TRIPATHI (dyspnea on exertion) [R06.09] Cardiology Comment on above: Pleural effusion [J90]; TRIPATHI (dyspnea on exertion) [R06.09] Start: 09-20-2023 End: 09-20-2023 ambulatory 09/20/2023 8:30 AM EDT OT/PT/Speech Visit [facility] [address] [place] [address] yTe Flores, PT [address] [place] [address] S22.070D (ICD-10-CM) - Closed wedge compression fracture of T10 vertebra with routine healing, subsequent encounter [facility] Comment on above: S22.070D (ICD-10-CM) - Closed wedge comp ression fracture of T10 vertebra with routine healing, subsequent encounter Start: 09-18-2023 End: 12-18-2023 Basic metabolic 2000 panel - Serum or Plasma BASIC METABOLIC PANEL Lab Routine Elevated serum creatinine Expected: 09/18/2023, Expires: 12/18/2023 [facility] Work Phone: Comment on above: Expected: 09/18/2023, Expires: Start: 09-13-2023 End: 12-13-2023 Basic metabolic 2000 panel - Serum or Plasma [facility] Comment on above: Expected: 09/13/2023, Expires: Start: 09-13-2023 End: 12-13-2023 Natriuretic peptide.B prohormone N-Terminal [Mass/volume] in Serum or Plasma [facility] Comment on above: Expected: 09/13/2023, Expires: Start: 09-13-2023 End: 12-13-2023 Urinalysis complete panel - Urine [facility] Comment on above: Expected: 09/13/2023, Expires: Start: 09-10-2023 End: 09-10-2023 Patient encounter procedure 09/10/2023 8:40 AM EDT Appointment Radiology [address] [place] [address] Pathological fracture of thoracic vertebra, initial encounter [M84.48XA] Radiology Comment on above: Pathological fracture of thoracic verteb ra, initial encounter [M84.48XA] Start: 09-06-2023 End: 09-06-2023 ambulatory 09/06/2023 5:15 PM EDT OT/PT/Speech Visit [facility] [address] [place] [address] Tye Flores, PT [address] [place] [address] back pain [facility] Comment on above: back pain Start: 08-30-2023 End: 08-30-2023 ambulatory 08/30/2023 5:15 PM EDT OT/PT/Speech Visit [facility] [address] [place] [address] Tye Flores, PT [address] [place] [address] back pain [facility] Comment on above: back pain Start: 08-23-2023 End: 08-23-2023 ambulatory 08/23/2023 5:15 PM EDT OT/PT/Speech Visit [facility] [address] [place] [address] Tye Flores, PT [address] [place] [address] back pain [facility] Comment on above: back pain Start: 08-16-2023 End: 08-16-2023 ambulatory 08/16/2023 11:30 AM EDT OT/PT/Speech Visit [facility] [address] [place] [address] Tye Flores, PT [address] [place] [address] back pain [facility] Comment on above: back pain Start: 08-10-2023 ANNUAL PCP TEAM CHRONIC DISEASE VISIT ANNUAL PCP TEAM CHRONIC DISEASE VISIT [facility] Start: 08-10-2023 BP CONTROLLED (<130/80) BP CONTROLLED (<130/80) [facility] Start: 08-10-2023 COVID-19 VACCINE (#1) COVID-19 VACCINE (#1) [facility] Comment on above: Postponed from 1954 (Declined at t his time) Start: 08-10-2023 End: 08-10-2023 ambulatory 08/10/2023 10:00 AM EDT Visit (SP) Office Hematology/Oncology [address] [place] [address] Richard Jenkins DO [address] [place] [address] OV PER 07/19/23 TE/CT 08/02* Hematology/Oncology Comment on above: OV PER 07/19/23 TE/CT 08/02* Start: 08-03-2023 End: 11-02-2023 CREATININE BLD CREATININE BLD Lab STAT Malignant neoplasm of lower third of esophagus (HCC) Expected: 08/03/2023, Expires: 11/02/2023 [facility] Work Phone: Comment on above: Expected: 08/03/2023, Expires: Start: 08-03-2023 End: 08-03-2023 Patient encounter procedure Cat Scan Comment on above: 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] Start: 08-03-2023 End: 08-03-2023 ambulatory 08/03/2023 7:45 AM EDT Results Only Anette Farmer [facility] [address] [place] [address] CREATININE(S)* [facility] Comment on above: CREATININE(S)* Start: 06-19-2023 End: 09-18-2023 Amylase [Enzymatic activity/volume] in Serum or Plasma [facility] Work Phone: Comment on above: Expected: 06/19/2023, Expires: Start: 06-19-2023 End: 09-18-2023 Comprehensive metabolic 2000 panel - Serum or Plasma [facility] Work Phone: Comment on above: Expected: 06/19/2023, Expires: 4 Start: 06-19-2023 End: 09-18-2023 Lipase [Enzymatic activity/volume] in Serum or Plasma [facility] Work Phone: Comment on above: Expected: 06/19/2023, Expires: 4 Start: 05-25-2023 BP CONTROLLED (<130/80) BP CONTROLLED (<130/80) [facility] Start: 04-09-2023 Advance Directive Discussion Advance Directive Discussion [facility] Start: 03-17-2023 BP CONTROLLED (<130/80) BP CONTROLLED (<130/80) [facility] Start: 02-20-2023 Hepatitis B surface antibody level LDL CHOLESTEROL [facility] Start: 02-09-2023 ANNUAL PCP TEAM CHRONIC DISEASE VISIT ANNUAL PCP TEAM CHRONIC DISEASE VISIT [facility] Start: 02-09-2023 BP CONTROLLED (<130/80) BP CONTROLLED (<130/80) [facility] Start: 02-09-2023 SHINGRIX VACCINE (1 of 2) SHINGRIX VACCINE (1 of 2) [facility] Comment on above: Postponed from 1973 (Insurance Cov erage) Postponed from 03/26 (Insurance Coverage) Start: 12-08-2022 Covid-19 Vaccine ( season) Covid-19 Vaccine ( season) [facility] Start: 12-08-2022 Influenza vaccination [facility] Start: 08-24-2022 BP CONTROLLED (<130/80) BP CONTROLLED (<130/80) [facility] Start: 08-09-2022 End: 10-09-2022 Basic metabolic 2000 panel - Serum or Plasma BASIC METABOLIC PNL Lab Routine Mixed hyperlipidemia Essential hypertension, benign Expected: 08/09/2022, Expires: 10/09/2022 [facility] Work Phone: Comment on above: Expected: 08/09/2022, Expires: 3 Start: 08-09-2022 End: 10-09-2022 CBC W Auto Differential panel - Blood CBC + DIFF Lab Routine Iron deficiency anemia due to chronic blood loss Expected: 08/09/2022, Expires: 10/09/2022 [facility] Work Phone: Comment on above: Expected: 08/09/2022, Expires: 3 Start: 08-09-2022 End: 10-09-2022 LIPID PANEL, NONFASTING LIPID PANEL, NONFASTING Lab Routine Mixed hyperlipidemia Expected: 08/09/2022, Expires: 10/09/2022 [facility] Work Phone: Comment on above: Expected: 08/09/2022, Expires: 3 Start: 07-27-2022 Hepatitis B surface antibody level LDL CHOLESTEROL [facility] Start: 07-19-2022 ANNUAL PCP TEAM CHRONIC DISEASE VISIT ANNUAL PCP TEAM CHRONIC DISEASE VISIT [facility] Start: 04-09-2022 ADVANCE DIRECTIVE DISCUSSION ADVANCE DIRECTIVE DISCUSSION [facility] Start: 02-09-2022 End: 04-11-2022 CBC W Auto Differential panel - Blood CBC + DIFF Lab Routine Iron deficiency anemia due to chronic blood loss Expected: 02/09/2022, Expires: 04/11/2022 [facility] Work Phone: Comment on above: Expected: 02/09/2022, Expires: 3 Start: 02-09-2022 End: 04-11-2022 Cobalamin (Vitamin B12) [Mass/volume] in Serum or Plasma VITAMIN B12 BLOOD Lab Routine Gastroesophageal reflux disease, unspecified whether esophagitis present Medication management Expected: 02/09/2022, Expires: 04/11/2022 [facility] Work Phone: Comment on above: Expected: 02/09/2022, Expires: 3 Start: 02-09-2022 End: 04-11-2022 Comprehensive metabolic 2000 panel - Serum or Plasma COMP METABOLIC PANEL Lab Routine Essential hypertension, benign Mixed hyperlipidemia Expected: 02/09/2022, Expires: 04/11/2022 [facility] Work Phone: Comment on above: Expected: 02/09/2022, Expires: 3 Start: 02-09-2022 End: 04-11-2022 Iron and Iron binding capacity panel - Serum or Plasma IRON + TIBC Lab Routine Iron deficiency anemia due to chronic blood loss Expected: 02/09/2022, Expires: 04/11/2022 [facility] Work Phone: Comment on above: Expected: 02/09/2022, Expires: 3 Start: 02-09-2022 End: 04-11-2022 LIPID PANEL, NONFASTING LIPID PANEL, NONFASTING Lab Routine Essential hypertension, benign Mixed hyperlipidemia Coronary artery disease involving [place] coronary artery of [place] heart without angina pectoris Expected: 02/09/2022, Expires: 04/11/2022 [facility] Work Phone: Comment on above: Expected: 02/09/2022, Expires: 3 Start: 02-09-2022 End: 04-11-2022 Magnesium [Mass/volume] in Serum or Plasma MAGNESIUM BLD Lab Routine Gastroesophageal reflux disease, unspecified whether esophagitis present Medication management Expected: 02/09/2022, Expires: 04/11/2022 [facility] Work Phone: Comment on above: Expected: 02/09/2022, Expires: 3 Start: 02-09-2022 End: 04-11-2022 Prostate specific Ag [Mass/volume] in Serum or Plasma PSA/PROSTSPECAG DIAG Lab Routine Prostate disorder Expected: 02/09/2022, Expires: 04/11/2022 [facility] Work Phone: Comment on above: Expected: 02/09/2022, Expires: 3 Start: 02-09-2022 End: 04-11-2022 Urinalysis complete panel - Urine URINALYSIS, WITH MICROSCOPIC Lab Routine Essential hypertension, benign Mixed hyperlipidemia Expected: 02/09/2022, Expires: 04/11/2022 [facility] Work Phone: Comment on above: Expected: 02/09/2022, Expires: 3 Start: 01-07-2022 Hepatitis B surface antibody level LDL CHOLESTEROL [facility] Start: 12-08-2021 Influenza vaccination INFLUENZA (#1) [facility] Start: 07-16-2021 DTaP/Tdap/Td vaccine (2 - Td) DTaP/Tdap/Td vaccine (2 - Td) [place], [place] Start: 04-09-2021 ADVANCE DIRECTIVE DISCUSSION ADVANCE DIRECTIVE DISCUSSION [facility] Start: 11-03-2020 BP CONTROLLED (<130/80) BP CONTROLLED (<130/80) [facility] Start: 04-16-2020 Creatinine [facility] Start: 04-16-2020 Potassium monitoring Potassium monitoring [facility] Start: 03-04-2020 Creatinine monitoring Creatinine monitoring [facility] Work Phone: Start: 03-04-2020 Potassium monitoring Potassium monitoring [facility] Work Phone: Start: 02-22-2020 Creatinine monitoring Creatinine monitoring [facility] Start: 02-22-2020 Potassium monitoring Potassium monitoring [facility] Start: 12-26-2019 Annual Wellness Visit (AWV) Annual Wellness Visit (AWV) [facility] Start: 12-09-2019 Influenza vaccination Flu vaccine (#1) [facility] Start: 04-16-2019 End: 04-16-2019 Office Visit [facility] Start: 2019 Pneumococcal 65+ years Vaccine (2 of 2 - PPSV23) Pneumococcal 65+ years Vaccine (2 of 2 - PPSV23) [facility] Work Phone: Start: 03-12-2019 End: 03-12-2019 Office Visit 03/12/2019 Office Visit Cardiology 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, COMPANY DANC[employer] - 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 [address] [place] [address] [phone] [facility] Start: 03-05-2019 End: 03-05-2019 Appointment 03/05/2019 Appointment Radiology [facility] [address] Start: 03-03-2019 End: 03-03-2019 Appointment 03/03/2019 Appointment General Surgery Tyshawn Magallanes MD [address] [place] [address] [phone] Jp Zhao MD [address] [place] [address] [phone] [facility] General Surgery Start: 12-08-2018 Influenza vaccination Flu vaccine (#1) [facility] Start: 07-20-2018 Creatinine monitoring Creatinine monitoring [facility] Start: 07-20-2018 Potassium monitoring Potassium monitoring [place], [place] Start: 12-26-2017 FECAL OCCULT BLOOD FECAL OCCULT BLOOD [facility] Start: 12-26-2017 Screening for malignant neoplasm of colon Fecal Occult Blood [facility] Start: 2014 RSV Vaccine (1 - 1-dose 60+ series) RSV Vaccine (1 - 1-dose 60+ series) [facility] Start: 2014 RSV Vaccine (1 - Risk 60-74 years 1-dose series) RSV Vaccine (1 - Risk 60-74 years 1-dose series) [facility] Start: 2004 Shingles Vaccine (1 of 2) Shingles Vaccine (1 of 2) [place] Start: 2004 SHINGRIX VACCINE (1 of 2) SHINGRIX VACCINE (1 of 2) [facility] Start: 1999 COLOGUARD (FIT-DNA) COLOGUARD (FIT-DNA) [facility] Start: [address] COLONOGRAPHY [facility] Start: 1999 Screening for malignant neoplasm of colon [facility] Start: 1999 SIGMOIDOSCOPY SIGMOIDOSCOPY [facility] Start: 1994 Diabetes screen Diabetes screen [place], [place] Start: 1973 SHINGRIX VACCINE (1 of 2) SHINGRIX VACCINE (1 of 2) [facility] Start: 1972 Anxiety Screening Anxiety Screening [facility] Start: 1969 HIV screen HIV screen [place], [place] Start: 1969 HIV screening HIV screen [place], [place] Start: 1966 COVID-19 VACCINE (1) COVID-19 VACCINE (1) [facility] Start: 1964 Lipid panel Lipid screen [place], [place] Start: 1964 Lipid screen Lipid screen [place], [place] Start: 1959 COVID-19 VACCINE (#1) COVID-19 VACCINE (#1) [facility] Start: 1954 COVID-19 VACCINE (#1) COVID-19 VACCINE (#1) [facility] Start: 1954 Hepatitis C screen Hepatitis C screen [place], [place] Start: 1954 Hepatitis C screening Hepatitis C screen [facility] [place] End: 02-21-2019 Bacteria identified Cx Nom (U) Urine Culture Microbiology Routine Nonrheumatic aortic valve stenosis 1 Occurrences starting 02/21/2019 until 02/21/2019 [facility] [employer] [facility] [place] Comment on above: 1 Occurrences starting 02/21/2019 until 02/21/2019 Bacteria identified Cx Nom (U) Urine Culture Microbiology Routine Nonrheumatic aortic valve stenosis 02/21/2019 11:[address] [facility] [place] Basic metabolic 2000 panel Basic Metabolic Panel Lab Routine Daily until discontinued starting 03/03/2019, 2 completed [facility] [place] Comment on above: Daily until discontinued starting 2018, 2 completed End: 12-07-2025 BD DXA TRABECULAR BONE SCORE (TBS) BD DXA TRABECULAR BONE SCORE (TBS) Radiology Routine Malignant neoplasm of lower third of esophagus (HCC) 1 Occurrences starting 11/07/2024 until 12/07/2025 [facility] Comment on above: 1 Occurrences starting 11/07/2024 until 12/07/2025 CBC CBC Lab Routine Daily until discontinued starting 03/03/2019, 2 completed [facility] [place] Comment on above: Daily until discontinued starting 2018, 2 completed End: 12-02-2022 Ct abdomen & pelvis w/contrast material CT ABD/PEL W IVCON Radiology Routine Malignant neoplasm of lower third of esophagus (HCC) 1 Occurrences starting 11/02/2021 until 12/02/2022 [facility] Work Phone: Comment on above: 1 Occurrences starting 11/02/2021 until 12/02/2022 End: 09-21-2023 Ct abdomen & pelvis w/contrast material CT ABD/PEL W IVCON Radiology Routine Malignant neoplasm of lower third of esophagus (HCC) 1 Occurrences starting 08/22/2022 until 09/21/2023 [facility] Work Phone: Comment on above: 1 Occurrences starting 08/22/2022 until 09/21/2023 Ct abdomen & pelvis w/contrast material CT ABD/PEL W IVCON Radiology Routine Malignant neoplasm of lower third of esophagus (HCC) 02/13/2023 10:14 AM EST [facility] Work Phone: End: 08-17-2024 CT Abdomen and Pelvis W contrast IV CT ABD/PEL W IVCON Radiology Routine Malignant neoplasm of lower third of esophagus (HCC) 1 Occurrences starting 07/19/2023 until 08/17/2024 [facility] Work Phone: Comment on above: 1 Occurrences starting 07/19/2023 until 08/17/2024 CT Abdomen and Pelvi s W contrast IV CT ABD/PEL W IVCON Radiology Routine Malignant neoplasm of lower third of esophagus (HCC) 08/03/2023 9:29 AM EDT [facility] End: 12-07-2025 CT Abdomen and Pelvis W contrast IV CT ABD/PEL W IVCON Radiology Routine Malignant neoplasm of lower third of esophagus (HCC) 1 Occurrences starting 11/07/2024 until 12/07/2025 [facility] Comment on above: 1 Occurrences starting 11/07/2024 until 12/07/2025 End: 02-13-2025 CT Abdomen and Pelvis WO contrast CT ABD/PEL WO IVCON Radiology Routine Malignant neoplasm of lower third of esophagus (HCC) 1 Occurrences starting 01/15/2024 until 02/13/2025 [facility] Comment on above: 1 Occurrences starting 01/15/2024 until 02/13/2025 CT Abdomen and Pelvi s WO contrast CT ABD/PEL WO IVCON Radiology Routine Malignant neoplasm of lower third of esophagus (HCC) 04/17/2024 2:21 PM [facility] End: 06-01-2025 CT Abdomen and Pelvis WO contrast CT ABD/PEL WO IVCON Radiology Routine Malignant neoplasm of lower third of esophagus (HCC) 1 Occurrences starting 05/02/2024 until 06/01/2025 [facility] Comment on above: 1 Occurrences starting 05/02/2024 until 06/01/2025 CT Abdomen and Pelvi s WO contrast CT ABD/PEL WO IVCON Radiology Routine Malignant neoplasm of lower third of esophagus (HCC) 10/31/2024 10:23 AM [facility] End: 08-17-2024 CT Chest W contrast IV CT CHEST W IVCON Radiology Routine Malignant neoplasm of lower third of esophagus (HCC) 1 Occurrences starting 07/19/2023 until 08/17/2024 [facility] Work Phone: Comment on above: 1 Occurrences starting 07/19/2023 until 08/17/2024 CT Chest W contrast IV CT CHEST W IVCON Radiology Routine Malignant neoplasm of lower third of esophagus (HCC) 08/03/2023 9:29 AM EDT [facility] Work Phone: End: 12-02-2022 CT CHEST W IVCON CT CHEST W IVCON Radiology Routine Malignant neoplasm of lower third of esophagus (HCC) 1 Occurrences starting 11/02/2021 until 12/02/2022 [facility] Work Phone: Comment on above: 1 Occurrences starting 11/02/2021 until 12/02/2022 End: 09-21-2023 CT CHEST W IVCON CT CHEST W IVCON Radiology Routine Malignant neoplasm of lower third of esophagus (HCC) 1 Occurrences starting 08/22/2022 until 09/21/2023 [facility] Work Phone: Comment on above: 1 Occurrences starting 08/22/2022 until 09/21/2023 CT CHEST W IVCON CT CHEST W IVCO N Radiology Routine Malignant neoplasm of lower third of esophagus (HCC) 02/13/2023 10:14 AM EST [facility] Work Phone: End: 02-13-2025 CT Chest WO contrast CT CHEST WO IVCON Radiology Routine Malignant neoplasm of lower third of esophagus (HCC) 1 Occurrences starting 01/15/2024 until 02/13/2025 [facility] Comment on above: 1 Occurrences starting 01/15/2024 until 02/13/2025 CT Chest WO contrast CT CHEST WO IVCON Radiology Routine Malignant neoplasm of lower third of esophagus (HCC) 04/17/2024 2:21 PM EST [facility] Work Phone: End: 06-01-2025 CT Chest WO contrast CT CHEST WO IVCON Radiology Routine Malignant neoplasm of lower third of esophagus (HCC) 1 Occurrences starting 05/02/2024 until 06/01/2025 [facility] Work Phone: Comment on above: 1 Occurrences starting 05/02/2024 until 06/01/2025 CT Chest WO contrast CT CHEST WO IVCON Radiology Routine Malignant neoplasm of lower third of esophagus (HCC) 10/31/2024 10:23 AM EDT [facility] Work Phone: DXA Bone [Mass/Area] Bone density [facility] End: 12-07-2025 DXA Skeletal system.axial Views for bone density DXA-AXIAL SKELETON Radiology Routine Malignant neoplasm of lower third of esophagus (HCC) Collapsed vertebra, not elsewhere classified, lumbar region, initial encounter for fracture (HCC) 1 Occurrences starting 11/07/2024 until 12/07/2025 [facility] Work Phone: Comment on above: 1 Occurrences starting 11/07/2024 until 12/07/2025 ECG COMPLETE ECG COMPLETE ECG Routine Pre-transplant evaluation for kidney transplant 06/11/2024 3:54 PM EST [facility] End: 09-12-2024 Echocardiography ECHO Cardiology Routine Pleural effusion TRIPATHI (dyspnea on exertion) 1 Occurrences starting 09/13/2023 until 09/12/2024 [facility] Work Phone: Comment on above: 1 Occurrences starting 09/13/2023 until 09/12/2024 End: 05-28-2024 EGD - THERAPEUTIC, EUS, OR TUBE INTERVENTIONS EGD - THERAPEUTIC, EUS, OR TUBE INTERVENTIONS Endoscopy Routine Malignant neoplasm of esophagus, unspecified location (HCC) 1 Occurrences starting 05/28/2023 until 05/28/2024 [facility] Work Phone: Comment on above: 1 Occurrences starting 05/28/2023 until 05/28/2024 End: 08-04-2022 EGD DIAGNOSTIC EGD DIAGNOSTIC Endoscopy Routine Malignant neoplasm of lower third of esophagus (HCC) 1 Occurrences starting 08/04/2021 until 08/04/2022 [facility] Work Phone: Comment on above: 1 Occurrences starting 08/04/2021 until 08/04/2022 End: 09-07-2022 EGD DIAGNOSTIC EGD DIAGNOSTIC Endoscopy Routine Malignant neoplasm of lower third of esophagus (HCC) 1 Occurrences starting 09/07/2021 until 09/07/2022 [facility] Work Phone: Comment on above: 1 Occurrences starting 09/07/2021 until 09/07/2022 End: 11-09-2022 EGD DIAGNOSTIC EGD DIAGNOSTIC Endoscopy Routine Malignant neoplasm of lower third of esophagus (HCC) 1 Occurrences starting 11/09/2021 until 11/09/2022 [facility] Work Phone: Comment on above: 1 Occurrences starting 11/09/2021 until 11/09/2022 EKG [address] [facility] Donis Comment on above: Daily until discontinued starting 2018, 2 completed Guidance for percutaneous biopsy of Bone IMAGING GUIDED BIOPSY VERTEBRA OR FEMUR Radiology Routine Malignant neoplasm of lower third of esophagus (HCC) Abnormal MRI, spine Ordered: 09/14/2023 [facility] Work Phone: Comment on above: Ordered: 09/14/2023 Guidance for thoracentesis of Chest IMAGING GUIDED THORACENTESIS Radiology Routine Pleural effusion Ordered: 02/04/2024 [facility] Comment on above: Ordered: 02/04/2024 Incentive spirometry Incentive s pirometry Respiratory Care Routine Every 2hr while awake until discontinued starting 03/03/2019 [facility] [employer] Comment on above: Every 2hr while awake until discontinued starting 03/03/2019 Influenza virus A an d B RNA and SARS-CoV-2 (COVID-19) N gene panel - Respiratory specimen by YEISON with probe detection COVID WITH FLUA+B, ROUTINE Microbiology Routine Acute cough Ordered: 03/17/2022 [facility] Work Phone: Comment on above: Ordered: 03/17/2022 Initiate Oxygen Ther apy Protocol Initiate Oxygen Therapy Protocol Respiratory Care Routine Daily until discontinued starting 03/03/2019 [facility] [employer] Comment on above: Daily until discontinued starting 2018 End: 06-11-2025 KID K/P PANC REC INIT W/U KID K/P PANC REC INIT W/U ALLOGEN Routine Pre-transplant evaluation for kidney transplant 1 Occurrences starting 06/11/2024 until 06/11/2025 [facility] Comment on above: 1 Occurrences starting 06/11/2024 until 06/11/2025 KID K/P PANC REC INI T W/U KID K/P PANC REC INIT W/U ALLOGEN Routine Pre-transplant evaluation for kidney transplant 06/11/2024 4:13 PM EST [facility] End: 07-30-2025 MG Breast - bilateral Diagnostic ROCAEL DIAGNOSTIC BILATERAL Radiology Routine Gynecomastia Subareolar mass of right breast Esophageal adenocarcinoma (HCC) 1 Occurrences starting 06/30/2024 until 07/30/2025 [facility] Comment on above: 1 Occurrences starting 06/30/2024 until 07/30/2025 End: 09-08-2024 MR Thoracic spine WO and W contrast IV MRI THORACIC SPINE WO/W IVCON Radiology Routine Pathological fracture of thoracic vertebra, initial encounter 1 Occurrences starting 08/10/2023 until 09/08/2024 [facility] Work Phone: Comment on above: 1 Occurrences starting 08/10/2023 until 09/08/2024 End: 06-01-2025 MR Thoracic spine WO and W contrast IV MRI THORACIC SPINE WO/W IVCON Radiology Routine Malignant neoplasm of lower third of esophagus (HCC) Closed wedge compression fracture of T10 vertebra with delayed healing, subsequent encounter 1 Occurrences starting 05/02/2024 until 06/01/2025 [facility] Comment on above: 1 Occurrences starting 05/02/2024 until 06/01/2025 End: 03-22-2024 Mri spinal canal thoracic w/o & w/contr matrl MRI THORACIC SPINE WO/W IVCON Radiology Routine Esophageal adenocarcinoma (HCC) Compression fracture of thoracic vertebra, unspecified thoracic vertebral level, initial encounter (HCC) 1 Occurrences starting 02/21/2023 until 03/22/2024 [facility] Work Phone: Comment on above: 1 Occurrences starting 02/21/2023 until 03/22/2024 End: 07-18-2024 NM Biliary ducts and Gallbladder Views for patency of biliary structures and ejection fraction W sincalide and W radionuclide IV NM HEPATOBILIARY W EF AND/OR RX Radiology Routine RUQ pain Nausea 1 Occurrences starting 06/19/2023 until 07/18/2024 [facility] Work Phone: Comment on above: 1 Occurrences starting 06/19/2023 until 07/18/2024 End: 04-27-2024 NM PET/CT SKULL-THIGH SUBSEQUENT NM PET/CT SKULL-THIGH SUBSEQUENT Radiology Routine Malignant neoplasm of lower third of esophagus (HCC) 1 Occurrences starting 03/29/2023 until 04/27/2024 [facility] Work Phone: Comment on above: 1 Occurrences starting 03/29/2023 until 04/27/2024 Patient Education [facility] Work Phone: Patient referral [facility] Work Phone: PREPARE RBC (CROSSMATCH) [place] End: 02-21-2019 PREPARE RBC (CROSSMATCH), 2 Units PREPARE RBC (CROSSMATCH), 2 Units Blood Bank Routine Nonrheumatic aortic valve stenosis 1 Occurrences starting 02/21/2019 until 02/21/2019 [place], [place] Comment on above: 1 Occurrences starting 02/21/2019 until 02/21/2019 Pulse oximetry, continuous Pulse oximetry, continuous Respiratory Care Routine Every 4hr until discontinued starting 03/03/2019 [place], [place] Comment on above: Every 4hr until discontinued starting RECIPIENT NOTIFICATION RECIPIENT NOTIFICATION ALLOGEN Routine Pre-transplant evaluation for kidney transplant Ordered: 06/11/2024 [facility] Comment on above: Ordered: 06/11/2024 End: 02-13-2025 RF Gastrointestinal tract upper Views W barium contrast PO XR UPPER GI SINGLE CONTRAST Radiology Routine Malignant neoplasm of lower third of esophagus (HCC) Early satiety Nausea 1 Occurrences starting 01/15/2024 until 02/13/2025 [facility] Comment on above: 1 Occurrences starting 01/15/2024 until 02/13/2025 SURGICAL PATHOLOGY [facility] Work Phone: Comment on above: Release Upon Ordering for 1 Occurrences starting 09/07/2021, 1 completed SURGICAL PATHOLOGY SURGICAL PATH OLOGY Lab Routine Malignant neoplasm of esophagus, unspecified location (HCC) Pre-op exam Malignant neoplasm of lower third of esophagus (HCC) Essential hypertension, benign Mixed hyperlipidemia Coronary artery disease involving [place] coronary artery of [place] heart without angina pectoris Gastroesophageal reflux disease, unspecified whether esophagitis present Aortic valve stenosis, etiology of cardiac valve disease unspecified Release Upon Ordering for 1 Occurrences starting 06/05/2023 [facility] Work Phone: Comment on above: Release Upon Ordering for 1 Occurrences starting 06/05/2023 End: 09-30-2022 Thyroxine (T4) free [Mass/volume] in Serum or Plasma T4 FREE/FREE THYROX Lab Routine Esophageal adenocarcinoma (HCC) Acquired hypothyroidism Iron deficiency anemia due to chronic blood loss Every other week for 26 Occurrences starting 09/30/2021 until 09/30/2022 [facility] Work Phone: Comment on above: Every other week for 26 Occurrences star ting 09/30/2021 until 09/30/2022 End: 07-18-2024 US Abdomen RUQ US ABD RIGHT UPPER QUADRANT Radiology Routine RUQ pain Nausea 1 Occurrences starting 06/19/2023 until 07/18/2024 [facility] Work Phone: Comment on above: 1 Occurrences starting 06/19/2023 until 07/18/2024 US Abdomen RUQ US ABD RIGHT UPP ER QUADRANT Radiology Routine RUQ pain Nausea 06/28/2023 11:15 AM EDT [facility] Work Phone: End: 07-30-2025 US Breast - right limited US BREAST LTD RIGHT Radiology Routine Gynecomastia Subareolar mass of right breast Esophageal adenocarcinoma (HCC) 1 Occurrences starting 06/30/2024 until 07/30/2025 [facility] Comment on above: 1 Occurrences starting 06/30/2024 until 07/30/2025 End: 10-12-2024 XR Chest PA and Lateral XR CHEST 2V FRONTAL/LAT Radiology Routine Pleural effusion TRIPATHI (dyspnea on exertion) 1 Occurrences starting 09/13/2023 until 10/12/2024 [facility] Comment on above: 1 Occurrences starting 09/13/2023 until 10/12/2024 XR Chest PA and Lateral XR CHEST 2V FRONTAL/LAT Radiology Routine Pleural effusion TRIPATHI (dyspnea on exertion) 09/13/2023 8:13 AM EDT [facility] End: 11-07-2024 XR Chest PA and Lateral XR CHEST 2V FRONTAL/LAT Radiology Routine Pleural effusion 1 Occurrences starting 10/09/2023 until 11/07/2024 [facility] Work Phone: Comment on above: 1 Occurrences starting 10/09/2023 until 11/07/2024 End: 03-01-2025 XR Chest PA and Lateral XR CHEST 2V FRONTAL/LAT Radiology Routine Pleural effusion 1 Occurrences starting 01/31/2024 until 03/01/2025 [facility] Work Phone: Comment on above: 1 Occurrences starting 01/31/2024 until 03/01/2025 End: 01-31-2024 XR Chest PA and Lateral [facility] Comment on above: 1 Occurrences starting 01/31/2024 until 01/31/2024 End: 03-05-2025 XR Chest PA and Lateral XR CHEST 2V FRONTAL/LAT Radiology Routine Pleural effusion 1 Occurrences starting 02/04/2024 until 03/05/2025 [facility] Comment on above: 1 Occurrences starting 02/04/2024 until 03/05/2025 End: 02-13-2025 XR GI SMALL BOWEL FOLLOW-THRU XR GI SMALL BOWEL FOLLOW-THRU Radiology Routine Malignant neoplasm of lower third of esophagus (HCC) Early satiety Nausea 1 Occurrences starting 01/15/2024 until 02/13/2025 [facility] Comment on above: 1 Occurrences starting 01/15/2024 until 02/13/2025 End: 11-06-2025 XR Lumbar spine AP and Lateral and oblique XR LUMBAR PARS DEFECT 4V AP/LAT/BOTH OBL Radiology Routine Lumbar back pain 1 Occurrences starting 10/07/2024 until 11/06/2025 [facility] Work Phone: Comment on above: 1 Occurrences starting 10/07/2024 until 11/06/2025 XR Lumbar spine AP a nd Lateral and oblique XR LUMBAR PARS DEFECT 4V AP/LAT/BOTH OBL Radiology Routine Lumbar back pain 10/07/2024 2:02 PM EDT [facility] Immunizations Immunization Date Immunization Notes Care Provider [facility] 08-19-2024 Hepatitis B vaccine (recombinant), CpG adjuvanted Yaw Smith APRN.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 Work Phone: [facility] 07-22-2024 Hepatitis B vaccine (recombinant), CpG adjuvanted Yaw Smith APRN.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 Work Phone: [facility] 06-17-2024 Hepatitis B vaccine (recombinant), CpG adjuvanted Yaw Smith APRN.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 Work Phone: [facility] 05-07-2024 tetanus and diphther ia toxoids, adsorbed, preservative free, for adult use (5 Lf of tetanus toxoid and 2 Lf of diphtheria toxoid) Edwin Montes APRN.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 Work Phone: [facility] 05-07-2024 TD(adult) unspecifie d formulation Edwin Montes APRN.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 Work Phone: [facility] Work Phone: 04-22-2024 Hepatitis B vaccine (recombinant), CpG adjuvanted Maulik Aranda MD Work Phone: [facility] 02-18-2024 Hepatitis B vaccine (recombinant), CpG adjuvanted Maulik Aranda MD Work Phone: [facility] 02-01-2024 Seasonal, trivalent, recombinant, injectable influenza vaccine, preservative free Maulik Aranda MD Work Phone: [facility] 02-01-2024 influenza virus vaccine, unspecified formulation Usha Mcgovern PA-C Work Phone: [facility] 01-21-2024 Hepatitis B vaccine (recombinant), CpG adjuvanted Maulik Aranda MD Work Phone: [facility] 12-17-2023 Hepatitis B vaccine (recombinant), CpG adjuvanted Yaw Singh MD Work Phone: [facility] 12-11-2023 influenza, high dose seasonal, preservative-free Yaw Singh MD Work Phone: [facility] 11-30-2023 pneumococcal conjuga te (PCV20) vaccine, 20 valent (PREVNAR 20) Yaw Singh MD Work Phone: [facility] 03-30-2023 influenza (HD-IIV4) vaccine, age 65+ yr, high dose, quadrivalent, PF (FLUZONE HIGH-DOSE) Amos Rangel MD Work Phone: [facility] 03-30-2023 influenza virus vaccine, unspecified formulation Helen Blair MD Work Phone: [facility] 02-09-2022 influenza, high-dose , quadrivalent vaccine (FLUZONE HIGH DOSE QUADRIVALENT) Yaw Singh MD Work Phone: [facility] 02-09-2022 influenza virus vaccine, unspecified formulation Ct (I-Stat) Work Phone: [facility] 01-31-[address] Yaw Singh Work Phone: [facility] 01-31-2021 influenza, seasonal, injectable, preservative free Richard Jenkins DO Work Phone: [facility] 01-13-2021 influenza, high-dose , quadrivalent vaccine (FLUZONE HIGH DOSE QUADRIVALENT) Richard Jenkins DO Work Phone: [facility] 11-04-2019 pneumococcal polysaccharide vaccine, 23 valent Richard Jenkins DO Work Phone: [facility] 01-28-2018 Influenza, injectabl e, Madin [place] [facility] Kidney, preservative free, quadrivalent Yaw Singh MD Work Phone: [facility] 01-28-2018 influenza, seasonal, injectable Richard Jenkins DO Work Phone: [facility] 01-28-2018 pneumococcal conjuga te vaccine, 13 valent Richard Mendezi DO Work Phone: [facility] 01-28-2018 tetanus toxoid, redu anahy diphtheria toxoid, and acellular pertussis vaccine, adsorbed Richard Goi DO Work Phone: [facility] 01-07-2018 influenza, injectabl e, quadrivalent, preservative free Yaw Singh MD Work Phone: [facility] 01-07-2018 tetanus toxoid, redu anahy diphtheria toxoid, and acellular pertussis vaccine, adsorbed Richard Mendezi DO Work Phone: [facility] 01-06-2017 influenza, injectabl e, quadrivalent, contains preservative Richard Goi DO Work Phone: [facility] 02-24-2016 influenza, injectabl e, quadrivalent, contains preservative Richard Goi DO Work Phone: [facility] 01-26-2015 influenza, injectabl e, quadrivalent, contains preservative Richard Goi DO Work Phone: [facility] 02-07-[address] Yaw Singh Work Phone: [facility] 02-07-2014 influenza, seasonal, injectable, preservative free Yaw Singh MD Work Phone: [facility] 07-17-2011 tetanus toxoid, redu anahy diphtheria toxoid, and acellular pertussis vaccine, adsorbed Richard Jenkins DO Work Phone: [facility] 01-21-2010 influenza virus vaccine, unspecified formulation Richard Jenkins DO Work Phone: [facility] 01-21-2010 pneumococcal polysaccharide vaccine, 23 valent Richard Jenkins DO Work Phone: [facility] 02-19-2009 influenza virus vaccine, unspecified formulation Richard Jenkins DO Work Phone: [facility] 02-02-2006 influenza virus vaccine, unspecified formulation Richard Jenkins DO Work Phone: [facility] Work Phone: Payers Date Payer Category Payer Self-pay [id number] 2019 Private Health Insurance MMO MED ICARE SUPPLEMENT Member Subscriber Plan / Payer (Effective 2019-Present) Name: Jacob Landa Relation to Subscriber: Self Name: Jacob Landa Payer ID: Not on file Type: Indemnity Address: [address] [id number] 2019 Unknown MMO MMO MEDICARE SUPPLEMENT [id number] 2019-Present [phone] [address] [place] [address] Indemnity [id number] 2019 Unknown MMO MMO MEDICARE SUPPLEMENT [id number] 2019-Present [phone] [address] [place] [address] Indemnity [id number] 2019 Unknown [id number] 2019 Medicare MEDICARE MEDICAR E A AND B [id number] 2019-Present [phone] [address] [address] [place] [address] Medicare [id number] 2019 Medicare [id number] 2019 Medicare [id number] 2014 Unknown [id number] 2014 Unknown [employer] xxxxxxxxx 2014-Present [phone] [place] [address] xxxxxxxxx [id number] Unknown [id number] Unknown [id number] 2.16.840.1.449726.3.579.2. 462 Unknown [id number] 2.16.840.1.633806.3.579.2. 462 Unknown [id number] 2.16.840.1.517709.3.579.2. 462 Unknown [id number] 2.16.840.1.010027.3.579.2. 462 Unknown [id number] 2.16.840.1.072050.3.579.2. 462 Unknown [id number] 2.16.840.1.108347.3.579.2. 462 Unknown [id number] 2.16.840.1.090504.3.579.2. 462 Unknown [id number] 2.16840.1.811356.3.579.2. 462 Unknown [id number] 2.840.1.021723.3.579.2. 462 Unknown [id number] 2.840.1.035196.3.579.2. 462 Unknown [id number] 2.16.840.1.538248.3.579.2. 462 Unknown [id number] 2.16.840.1.113893.3.579.2. 462 Unknown [id number] 2.16.840.1.613012.3.579.2. 462 Unknown [id number] 2.16840.1.662518.3.579.2. 462 Unknown [id number] 2.16.840.1.633366.3.579.2. 462 Unknown [id number] 2.16.840.1.148987.3.579.2. 462 Unknown [id number] 2.16.840.1.987739.3.579.2. 462 Unknown [id number] 2.16.840.1.065633.3.579.2. 462 Unknown [id number] 2.16.840.1.544495.3.579.2. 462 Unknown [id number] 2.16.840.1.310204.3.579.2. 462 Unknown [id number] 2.16.840.1.704801.3.579.2. 462 Unknown [id number] 2.16.840.1.121667.3.579.2. 462 Unknown [id number] 2.840.1.396144.3.579.2. 462 Unknown [id number] 2.16.840.1.502149.3.579.2. 462 Social History Date Type Detail Facility Start: 02-18-2019 End: 10-23-2024 Tobacco smoking status NHIS Never smoker [facility] Start: 02-18-2019 End: 04-16-2019 Alcohol intake Current non-drinker of alcohol (finding) [employer] Sex Assigned At Not on file [employer] Start: 03-03-2020 End: 10-23-2024 Tobacco use and exposure Never used [employer] Start: 07-17-2021 End: 02-09-2022 Exposure to SARS-CoV-2 (event) Not sure [employer] Start: 07-27-2021 End: 11-14-2024 Alcohol intake Ex-drinker (finding) [facility] Start: 05-14-2020 History SDOH Alcohol Comment none [facility] Start: 1955 Sex Assigned At Male [facility] Start: 06-23-2022 Tobacco smoking stat us AZIS Unknown if ever smoked [facility] Start: 06-27-2014 None [facility] Start: 06-27-2014 Spouse/ Signif icant Other [facility] Start: 08-22-2022 End: 09-22-2024 History of Social function [facility] Start: 08-22-2022 End: 09-22-2024 Tobacco use panel [facility] Start: 03-10-2012 Adult Depression Screening Assessment 0 [facility] Start: 05-18-2020 Gender identity Identifies as male gender (finding) [facility] Start: 05-18-2020 Sexual orientation Heterosexual (louis christensen) [facility] How often to you hav e a drink containing alcohol? Never [facility] Start: 06-19-2024 End: 06-30-2024 Sex Male (finding) [facility] Has the [employer], [employer], [employer], or water company threatened to shut off services in your home in past 12Mo No [facility] (I/We) worried wheth er (my/our) food would run out before (I/we) got money to buy more. Never true [facility] NEGATED: Highlighted rowStart: NINF History of tobacco use Passive smoker [facility] Medical Equipment Procedure Code Equipment Code Equipment Original Text Equipment Identifier Dates Primary uncemented hemiarthroplasty of hip ([id number]) Uncoated hip femur prosthesis, one-piece ()[id number] FDA Start: 02-15-2024 Primary uncemented hemiarthroplasty of hip ([id number]) Uncoated hip femur prosthesis, one-piece ()[id number] FDA Start: 02-15-2024 Primary uncemented hemiarthroplasty of hip Coated hip femur prosthesis, modular ()[id number] FDA Start: 02-15-2024 Insertion, catheter, hemodialysis CATHETER,CVD [...] 1:11 PM EDT Ezekiel Vasques RN No [facility] 08-16-2020 Are you blind, or do you have serious difficulty seeing, even when wearing glasses No 08/16/2020 1:11 PM EDT Ezekiel Vasques RN No [facility] 08-16-2020 Do you have serious difficulty walking or climbing stairs No 08/16/2020 1:11 PM EDT Ezekiel Vasques RN No [facility] 08-16-2020 Do you have difficul ty dressing or bathing No 08/16/2020 1:11 PM EDT Ezekiel Vasques RN No [facility] 08-16-2020 Because of a physica l, mental, or emotional condition, do you have difficulty doing errands alone such as visiting a physician's office or shopping No 08/16/2020 1:11 PM EDT Ezekiel Vasques RN No [facility] Mental Status Date Assessment Result Facility 06-30-2024 Cognitive function Voice/Name [facility] Work Phone: 08-16-2020 Because of a physica l, mental, or emotional condition, do you have serious difficulty concentrating, remembering, or making decisions No 08/16/2020 1:11 PM EDT Ezekiel Vasques RN No [facility] Clinical Notes 03-03-2019 to 12-24-2024 Telephone Encounter - Usha Mcgovern PA-C - 12/24/2024 11:18 AM EDTTelephone Encounter - Usha Mcgovern PA-C - 12/24/2024 11:18 AM Bobby Balbuena APRN.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 - 12/24/2024 10:29 AM EDT Note Date & Type Note Facility 12-24-2024 Telephone encounter Note Noted. [facility] 12-24-2024 Miscellaneous Notes Noted. He's scheduled for [...] stating he had bone density test at [facility] and from results, was informed to touch base with Dr. Jenkins to see if he would want further testing. documented in this encounter [facility] 12-24-2024 History of Present illness Narrative URGENT [...] kidney disease) stage 4, GFR 15-29 ml/min ([facility]) 01/03/2024 On dialysis and seeing Dr. Greenberg. Closed wedge compression fracture of T10 vertebra (HCC) 07/12/2023 Compression fracture of lumbar vertebra (HCC) 11/14/202411/2024: L1-L5 seen Dr Davila and referred to pain management. Coronary artery disease involving [place] coronary artery without angina pectoris Seeing Dr. [...] 11/17/2020 Personal history of colonic polyps 12/27/2009 Piece Cutter's nodules 03/30/2023 Will try pamelor Pleural effusion [...] COLONOSCOPY W/BIOPSY SINGLE/MULTIPLE 02/22/2007 Diminutive polyp distal [id number] ECHO 01/08/2021 EGD 04/15/2020 HEART CATHETERIZATION 12/2018 [...] <AGE 11 Tonsillectomy TOT/SUB ESOPHAGECTOMY W/THORACOT 08/09/2020 [place] esophagectomy, jejunostomy tube placement TOTAL HIP [...] (FLONASE) 50 mcg/actuation nasal spray Use 1 Byron in each nostril once daily. ferrous sulfate [...] new or worsening symptoms. and Recording using Lomaki software for draft documentation of the visit was discussed with the patient/authorized leasing representative; all questions welcomed and answered. Patient/authorized leasing representative agreed to proceed Differential Diagnoses - [...] Drug use: No documented in this encounter [facility] 12-24-2024 Telephone encounter Note He's scheduled for 01/05 already. Jannet Goldsmith MA [facility] 12-23-2024 Telephone encounter Note See if patient wants to set up appt to discuss bone density results. [facility] 12-22-2024 Telephone encounter Note Spoke with pt. Informed he needed to speak with his PCP or ordering physician to discuss how they want to manage his osteoporosis. Pt. Voiced understanding. Isa Godoy LPN [facility] 12-22-2024 Telephone encounter Note Prescription Refill Information [...] Goldsmith MA December 22, 2024 7:06 AM [facility] 12-22-2024 Miscellaneous Notes Prescription Refill Information The [...] 2024 7:06 AM documented in this encounter [facility] 12-21-2024 Telephone encounter Note Bone density demonstrated osteoporosis. He should speak to the ordering provider or his PCP about management of that. Richard Jenkins DO [facility] 12-18-2024 Telephone encounter Note Reports printed and will be sent to scanning. Will place in Dr. Jenkins's mailbox for review. Elvira Noriega LPN [facility] 12-18-2024 Telephone encounter Note Patient called stating he had bone density test at [facility] and from results, was informed to touch base with Dr. Jenkins to see if he would want further testing. [facility] Work Phone: 11-11-2024 Miscellaneous Notes Spoke with patient and scheduled Nuria Sanches AVS 8 6 month F/U with CBC/CMP/CT scans CT scans 1 week prior to OV ,needs to have day before dialysis documented in this encounter [facility] 11-11-2024 Telephone encounter Note Spoke with patient and scheduled Nuria Sanches [facility] 11-07-2024 Telephone encounter Note AVS 8/ 6 month F/U with CBC/CMP/CT scans CT scans 1 week prior to OV ,needs to have day before dialysis [facility] 11-07-2024 History of Present illness Narrative Oncologic [...] abdomen: Dedicated CT abdomen pelvis dictated separately. Feed Crusher (topogram) images: No additional findings. CT A/P [...] chest CT performed will be reported separately. Feed Crusher (topogram) images: No additional findings. 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 Pain was most intense in March. MRI and PET reviewed by several radiologists. Consensus was no evidence of cancer and biopsy not recommended. He was seen at the spine center in [place]. Office visit 08/2023: Back pain significantly improved after passing kidney stones. Has days without back pain. 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 Here in the past couple weeks, I felt better than I felt since last summer." OV 01/15/2024: Has been hospitalized several times at [facility]. Developed end-stage renal disease and started dialysis. [...] which included preparing to see the patient, [id number] patient care, completing clinical documentation, obtaining and/or reviewing separately obtained history, performing a medically appropriate examination, counseling and educating the patient/family/caregiver, ordering medications, tests, or procedures, communicating with other HCPs (not separately reported), and communicating results to the patient/family/caregiver. Richard Jenkins DO documented in this encounter [facility] 11-05-2024 History of Present illness Narrative POPULATION [...] 2024 1:05 PM documented in this encounter [facility] 10-31-2024 History of Present illness Narrative Radiology [...] PATIENT PRESENTS WITH AN IMPLANTABLE OR ATTACHED DIMMER BOARD OPERATOR: No RADIOLOGY DEPARTMENT: CT; Exam(s) Completed: Chest Abdomen Pelvis PERIPHERAL IV DATA: Not applicable SIGNED BY: RT Geno(R) October 31, 2024 1:40 PM documented in this encounter [facility] 10-23-2024 History of Present illness Narrative ENDOCRINOLOGY [...] vertebra (HCC) 07/12/2023 Coronary artery disease involving [place] coronary artery without angina pectoris Seeing Dr. [...] 11/17/2020 Personal history of colonic polyps 12/27/2009 Piece Cutter's nodules 03/30/2023 Will try pamelor Pleural effusion [...] COLONOSCOPY W/BIOPSY SINGLE/MULTIPLE 02/22/2007 Diminutive polyp distal [id number] ECHO 01/08/2021 EGD 04/15/2020 HEART CATHETERIZATION 12/2018 [...] (FLONASE) 50 mcg/actuation nasal spray Use 1 Byron in each nostril once daily. ferrous sulfate [...] Moderate Delicia Díaz MD Endocrinology Associate Staff [facility] Endocrinology and Metabolism [place] [phone] documented in this encounter [facility] 10-17-2024 Telephone encounter Note Patient notified Cristine Caceres MA [facility] 10-17-2024 Miscellaneous Notes Patient notified Cristine Caceres MA Let patient know I would be ok with him trying the back brace to see if it provides some relief. Patient calls to ask if he needs to schedule with [facility] since he is scheduled here on [...] Brandie Bailey RN documented in this encounter [facility] 10-17-2024 Telephone encounter Note Let patient know I would be ok with him trying the back brace to see if it provides some relief. [facility] 10-17-2024 Telephone encounter Note Patient calls to ask if he needs to schedule with [facility] since he is scheduled here on 11/20/2024. Notified patient that the appointment on 11/20/2204 is for pain management so should also schedule with [facility]. Patient also asking if it would be ok to trial a back brace until he is seen by specialists. He thought maybe that would help keep his pain under a little more control. Would like provider's recommendation. Patient reports he would just pick one up from the drug store if Dr. Singh thought it would be beneficial. Brandie Bailey RN [facility] 10-15-2024 History and physical note Note Date/Time October 15, 2024 10:25am [facility] Medical Records Department [address] [place] [address] History & Physical Exam 10/15/24 1022 MR#: [id number] Acct: [id number] Name: JACOB LANDA Rep #:[id number] : 1955 69 From: Nikita Jackson MD PCP: Dr. Yaw Singh MD Status:[facility] Location: [facility] HPI - General HPI Narrative JACOB LANDA, is a 69 M who presents with ESRD currently using a left upper arm AV fistula without issue. He has a prior left IJ tunneled catheter he is no longer using and presents for removal. [facility]LY [facility] Medical History Thrombocytopenia Wears glasses Cancer Cancer [...] Esophageal carcinoma Atherosclerosis of coronary artery of [place] heart without angina pectoris 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 Essential (primary) hypertension Non-rheumatic aortic stenosis Syncope and collapse Hyperlipidemia Atherosclerotic heart disease of [place] coronary artery with other forms of angina [...] Jackson MD; Dr. Yaw Singh MD~ Signed [facility] Work Phone: 1(410) 609-202107-09-2025 History and physical note [facility] Medical Records Department [address] [place] [address] History & Physical Exam 10/15/24 1022 MR#: [id number] Acct: [id number] Name: JACOB LANDA Rep #:[id number] : 1955 69 From: Nikita Jackson MD PCP: Dr. Yaw Singh MD Status:[facility] Location: [facility] HPI - General HPI Narrative JACOB LANDA, is a 69 M who presents with ESRD currently using a left upper arm AV fistula without issue. He has a prior left IJ tunneled catheter he is no longer using and presents for removal. [facility] Medical History Thrombocytopenia Wears glasses Cancer Cancer [...] Esophageal carcinoma Atherosclerosis of coronary artery of [place] heart without angina pectoris 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 Essential (primary) hypertension Non-rheumatic aortic stenosis Syncope and collapse Hyperlipidemia Atherosclerotic heart disease of [place] coronary artery with other forms of angina [...] Jackson MD; Dr. Yaw Singh MD~ Signed [facility]07-09-[address] [facility] Medical Records Department [address] [place] [address] History Physical Exam 10/15/24 1022 MR#: [id number] Acct: [id number] Name: JACOB LANDA Rep #: [id number] : 1955 69 From: Nikita Jackson MD PCP: Dr. Yaw Singh MD Status:[facility] Location: [facility] HPI - General HPI Narrative JACOB LANDA, is a 69 M who presents with ESRD currently using a left upper arm AV fistula without issue. He has a prior left IJ tunneled catheter he is no longer using and presents for removal. [facility] Medical History Thrombocytopenia Wears glasses Cancer Cancer [...] Esophageal carcinoma Atherosclerosis of coronary artery of [place] heart without angina pectoris 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 Essential (primary) hypertension Non-rheumatic aortic stenosis Syncope and collapse Hyperlipidemia Atherosclerotic heart disease of [place] coronary artery with other forms of angina [...] with exertion or wheez (more content not included)...[facility]07-08-2025 Telephone encounter Note* Telephone Encounter - Krystina Quinones LPN - 10/14/2024 11:29 AM EDT Pt notified of Usha's message and instructions. Pt reports that he takes the Zetia but doesn't always take the Lipitor. Advised pt that he needs to be taking both. Pt verbalizes understanding. Krystina Quinones LPN [facility]07-08-2025 Miscellaneous Notes* Telephone Encounter - Krystina Quinones [...] aware office would fax over referral to [employer] office and they would contact him to setup appt. Pt understood. Faxed all paperwork to [phone], updated referral in Epic. Pt asking about lab results he completed on 10/07/24. Notified pt I would route message to Provider. Jannet Goldsmith MA * Telephone Encounter - Usha Mcgovern PA-C - 10/13/2024 11:09 AM EDT Let patient know that his xray show multiple compression fractures. I will place consult [facility] specialist to see if they recommend any other treatments. Continue with pain management as well. Usha Mcgovern PA-C documented [facility] encounter[facility] Telephone encounter Note * Telephone Encounter - Usha Mcgovern PA-C - 10/14/2024 7:28 AM EDT Labs are stable. LDL is slightly higher than goal. At 122 with goal under 70. Watch saturated fasts in diet and makesure taking the lipitor and zetia. [facility]07-07-2025 Telephone encounter Note* Telephone Encounter - Jannet Goldsmith MA - 10/13/2024 3:44 PM EDT Call to pt and notified him of results and recommendations below from Provider. Made pt aware office would fax over referral to [employer] office and they would contact him to setup appt. Pt understood. Faxed all paperwork to [phone], updated referral in Epic. Pt asking about lab results he completed on 10/07/24. Notified pt I would route message to Provider. Jannet Goldsmiht MA [facility]07-07-2025 Telephone encounter Note* Telephone Encounter - Usha Mcgovern PA-C - 10/13/2024 11:09 AM EDT Let patient know that his xray show multiple compression fractures. [facility] place [facility] to see if they recommend any other treatments. Continue with pain management as well. Usha Mcgovern PA-C [facility]07-01-2025 History of Present illness Narrative* Teresa Jeronimo [...] PATIENT PRESENTS WITH AN IMPLANTABLE OR ATTACHED DIMMER BOARD OPERATOR: No RADIOLOGY DEPARTMENT: General X-ray: Exam(s) Completed: Spine X-Ray(s): Lumbar AP/LAT obliques PERIPHERAL IV DATA: Not applicable SIGNED BY: RT Isabell(Bea) October 07, 2024 1:41 PM documented in this encounterOhio[facility] History of Present illness Narrative* Usha Mcgovern PA-C - 10/07/2024 12:47 PM EDT [...] Disease: - Under care of Dr. Scott, synchronous motor assembler. - On dialysis 3 times a week (Tuesdays, , and Saturdays). - On kidney transplant list. Coronary Artery Disease: - Under care of Dr. Noland, motion picture critic at [facility]. Vascular Disease: - Under care of Dr. [...] kidney disease) stage 4, GFR 15-29 ml/min ([facility]) 01/03/2024 On dialysis and seeing Dr. Greenberg. Closed wedge compression fracture of T10 vertebra (HCC) 07/12/2023 Coronary artery disease involving [place] coronary artery without angina pectoris Seeing Dr. 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 Pressure ulcer of unspecified buttock, stage 2 ([facility]) 01/03/2024 Bilaterally. Primary insomnia 03/30/2023 S/P CABG [...] COLONOSCOPY W/BIOPSY SINGLE/MULTIPLE 02/22/2007 Diminutive polyp distal [id number] ECHO 01/08/2021 EGD 04/15/2020 HEART CATHETERIZATION 12/2018 [...] <AGE 11 Tonsillectomy TOT/SUB ESOPHAGECTOMY W/THORACOT 08/09/2020 [place] esophagectomy, jejunostomy tube placement TOTAL HIP [...] (FLONASE) 50 mcg/actuation nasal spray Use 1 Byron in each nostril once daily. ferrous sulfate [...] lipid panel. 3. Coronary artery disease involving [place] coronary artery of [place] heart without angina pectoris(I25.10) - Clinically stable. [...] dialysis three times weekly. - Follow-up with synchronous motor assembler . 7. 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 Patient/authorized leasing representative agreed to proceed documented in this encounterOhio[facility] Telephone encounter Note * Telephone Encounter - Christiano Nolasco RN - 09/26/2024 4:56 PM EDT Pt called and is notified of providers results and instructions. Pt voices understanding. Transferred to scheduled to set up appt with Endocrinology. Christiano Nolasco RN [facility]06-20-2025 Miscellaneous Notes* Telephone Encounter - Christiano Nolasco RN - 09/26/2024 4:56 PM EDT Pt called and is notified of providers results and instructions. Pt voices understanding. Transferred to scheduled to set up appt with Endocrinology. Christiano Nolasco RN * Telephone Encounter - Yaw Singh MD - 09/26/2024 11:53 AM EDT Let patient know I received input from our local finance lecturer and your recent labs and the gynecomastia. I would like for you to meet with her for further eval. She want to try to determine why the FSH, LH and prolactin are elevated and your testosterone level is normal. Order placed. documented in this encounterOhio[facility]06[facility]25 Telephone encounter Note * Telephone Encounter - Yaw Singh MD - 09/26/2024 11:53 AM EDT Let patient know I received input from our local finance lecturer and your recent labs and the gynecomastia. I would like for you to meet with her for further eval. She want to try to determine why the FSH, LH and prolactin are elevated and your testosterone level is normal. Order placed. [facility]06-16-2025 Instructions* Patient Instructions* Yaw Singh MD - [...] I will send a message to our finance lecturer to ensure we are not missing anything [...] will follow up with you if the finance lecturer provides any additional recommendations based onyour labs. Please reach out if you have any further questions or concerns. documented in this encounterOhiohealth [facility]06-[facility] History of Present illness Narrative* Yaw Singh [...] was hospitalized and subsequently transferred to a [facility]. At thattime, a stroke was suspected but [...] ago Sunday, following a fistula procedure in [place]. He describes the area as feeling firm [...] vertebra (HCC) 07/12/2023 Coronary artery disease involving [place] coronary artery without angina pectoris Seeing Dr. [...] 08/14/2020 History: 65 year old male s/p [place] esophagectomy, Pyloromyotomy, Jejunostomy tube placement for esophageal adenocarcinoma -Diet: Isosource 1.5 to 50 cc hour with 100 cc water flushes 8 times per day and Bene protein 3 times per day Removed 11/17/2020 Personal history of colonic polyps 12/27/2009 Piece Cutter's nodules 03/30/2023 Will try pamelor Pleural effusion [...] COLONOSCOPY W/BIOPSY SINGLE/MULTIPLE 02/22/2007 Diminutive polyp distal [id number] ECHO 01/08/2021 EGD 04/15/2020 HEART CATHETERIZATION 12/2018 [...] <AGE 11 Tonsillectomy TOT/SUB ESOPHAGECTOMY W/THORACOT 08/09/2020 [place] esophagectomy, jejunostomy tube placement TOTAL HIP [...] (FLONASE) 50 mcg/actuation nasal spray Use 1 Byron in each nostril once daily. ferrous sulfate [...] mIU/mL <0.6 Results MRI BRAIN WO JACINTO (Acc#[id number]) (Order [id number]) Patient Info Patient Name Sex Jacob Alba ([id number]) Male 1955 09/08/2024 3:46 PM - Radiology, [...] can be seen in setting of [facility]. Airveyor Operator: MORGAN Transcribe Date/Time: Sep 08 2024 3:29P [...] several weeks. Yaw Singh MD Recording using Lomaki software for draft documentation of the visit was discussed with the patient/authorized leasing representative; all questions welcomed and answered. Patient/authorized leasing representative agreed to proceed documented in this encounterOhiohealth [facility]06-[facility] History of Present illness Narrative* Krystina Quinones LPN - 09/18/2024 7:29 AM EDT Scan on 09/17/2024 10:16 PM by Provider, External, PAHailyC: Consultation - Emergency Medicine documented in this encounterOhiohealth [facility]06-11-2025 Discharge summary [facility] Medical Records Department [address] [place] [address] Emergency Department Summary 09/17/24 MR#: [id number] Acct: [id number] Name: JACOB LANDA Rep #:[id number] : [...] Esophageal carcinoma Atherosclerosis of coronary artery of [place] heart without angina pectoris 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 Essential (primary) hypertension Non-rheumatic aortic stenosis Syncope and collapse Hyperlipidemia Atherosclerotic heart disease of [place] coronary artery with other forms of angina [...] graft without anginapectoris, Thrombocytopenia, Current use of detention anticoagulation, End-stage renal disease on hemodialysis Instructions: [...] to the emergency department immediately. Print Language: Nigerien Disposition Disposition: Home, Self Care What to do if you have Problems For any increased pain, shortness of breath, bleeding, nausea or vomiting, chestpain, or any unexpected problems, contact your Primary Care Provider. Call [facility] ([phone]) or report tothe closest Emergency Room. Call 911 if necessary. 09/17/242207 Cosigner Signature (if applicable): CC: Dr. Yaw Singh MD ~ Signed [facility]06-11-2025 Discharge summary Author Sushant Tom [facility] Note Date/Time September 17, 2024 10:[address] [facility] Medical Records Department [address] [place] [address] Emergency Department Summary 09/17/24 MR#: [id number] Acct: [id number] Name: JACOB LANDA Rep #:[id number] : [...] [facility] relaxant for his [...] Esophageal carcinoma Atherosclerosis of coronary artery of [place] heart without angina pectoris 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 Essential (primary) hypertension Non-rheumatic aortic stenosis Syncope and collapse Hyperlipidemia Atherosclerotic heart disease of [place] coronary artery with other forms of angina [...] without angina pectoris, Thrombocytopenia, 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 Print Language: Nigerien Disposition Disposition: Home, Self Care What to do if you have Problems For any increased pain, shortness of breath, bleeding, nausea or vomiting, chestpain, or any unexpected problems, contact your Primary Care Provider. Call [facility] ([phone]) or report to the closest Emergency Room. Call 911 if necessary. 09/17/242207 <Electronically signed by Sushant Tom MD> Cosigner Signature (if applicable): CC: Dr. Yaw Singh MD ~ Signed [facility] Work Phone: 1(274) 549-969206-11-2025 Hospital Discharge instructions Additional Instructions 1. Apply ice to your lower back 6-8 times a day for the next 3 to 5 days 2. Take medication as prescribed 3. If you are unable to urinate, loss of bowel control dragging your foot or or your knee [place] when you go up and down steps return to the emergency department immediately. [facility] Work Phone: 1(779) 797-398006-06-2025 History of Present illness Narrative* Yaw Smith APRN.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 - 09/12/2024 8:45 AM EDT Images from [...] vertebra (HCC) 07/12/2023 Coronary artery disease involving [place] coronary artery without angina pectoris Seeing Dr. [...] 08/14/2020 History: 65 year old male s/p [place] esophagectomy, Pyloromyotomy, Jejunostomy tube placement for esophageal adenocarcinoma -Diet: Isosource 1.5 to 50 cc hour with 100 cc water flushes 8 times per day and Bene protein 3 times per day Removed 11/17/2020 Personal history of colonic polyps 12/27/2009 Piece Cutter's nodules 03/30/2023 Will try pamelor Pleural effusion [...] COLONOSCOPY W/BIOPSY SINGLE/MULTIPLE 02/22/2007 Diminutive polyp distal [id number] ECHO 01/08/2021 EGD 04/15/2020 HEART CATHETERIZATION 12/2018 [...] <AGE 11 Tonsillectomy TOT/SUB ESOPHAGECTOMY W/THORACOT 08/09/2020 [place] esophagectomy, jejunostomy tube placement TOTAL HIP [...] (FLONASE) 50 mcg/actuation nasal spray Use 1 Byron in each nostril once daily. ferrous sulfate [...] of care. This note was generated using [employer] software. It may contain errors in wording, punctuation, or spelling. Yaw Smith APRN.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 documented in this encounterOhio[facility]06-03-[facility] Telephone encounter Note * Telephone Encounter - Yaw Singh MD - 09/09/2024 5:24 PM EDT Shazia can we get Jacob on my schedule for a 20 min appt to discuss his MRI results and gynecomasty sometime between 09/11/2024 and his routine appt with Usha (which he is to keep) on 10/07/2024 [facility]06-03[facility] Miscellaneous Notes* Telephone Encounter - Yaw Singh [...] management/discussion and neurology consideration. documented in this encounterOhiohealth Van Wert Hospital06-03-2025 Telephone encounter Note * Telephone Encounter - Tata Weems LPN - 09/09/2024 10:33 AM EDT Phoned patient and reviewed provider's message with him. Patient voiced understanding. Tata Weems LPN [facility]06-03-[facility] Telephone encounter Note* Telephone Encounter - Tata [...] PCP for further management/discussion and neurology consideration. [facility]06-02[facility] Telephone encounter Note* Telephone Encounter - Yaw Singh MD - 09/08/2024 3:27 PM EDT Info below noted and agree. [facility]06-02-[facility] Miscellaneous Notes* Telephone Encounter - Yaw Singh [...] contrast unless it was run by his synchronous motor assembler first. I f radiology does not think that the MRI as ordered will benefit him, the I would recommend delayingand coordinating the imaging with his synchronous motor assembler. Forwarding to PCP as FYI. * Telephone [...] as recommended by PCP. documented in this encounterOhiohealth Van Wert Hospital06-02-2025 Telephone encounter Note * Telephone Encounter - Stacia Adame MD - 09/08/2024 2:29 PM EDT With his CKD stage 4 I wanted to avoid contrast dye. I know that with some of the newer gadolinium based contrasts, it does not effect the kidneys as much, but I still would not feel comfortable withusing the contrast unless it was run by his synchronous motor assembler first. I f radiology does not think that the MRI as ordered will benefit him, the I would recommend delayingand coordinating the imaging with his synchronous motor assembler. Forwarding to PCP as FYI. [facility] History of Present illness Narrative* Gloria Sinclair [...] PATIENT PRESENTS WITH AN IMPLANTABLE OR ATTACHED DIMMER BOARD OPERATOR: No RADIOLOGY DEPARTMENT: MR; Exam(s) Completed: Head: Routine Brain. Lavender Administered: No PERIPHERAL IV DATA: Not applicable SIGNED BY: RT Arlen(Bea) September 08, 2024 3:10 PM documented in this encounterOhiohealth Van Wert Hospital06-02-2025 Telephone encounter Note * Telephone Encounter - [...] Bailey RN September 08, 2024 11:54 AM [facility]06-02-[facility] Miscellaneous Notes* Telephone Encounter - Brandie Bailey [...] 08, 2024 11:54 AM documented in this encounterOhiohealth Van Wert [facility]05-30-2025 Telephone encounter Note * Telephone Encounter - Yaw Singh MD - 09/05/2024 1:09 PM EDT Noted. [facility] Miscellaneous Notes* Telephone Encounter - Yaw Singh [...] removal of the tissue. documented in this encounterOhiohealth Van Wert Hospital05-30-2025 Telephone encounter Note * Telephone Encounter - Alberta Cadnelaria MA - 09/05/2024 11:29 AM EDT Patient notified and voiced understanding. Patient was not aware he need an MRI. Patient was unable to schedule right now was going to call back. Alberta Candelaria MA [facility]05-29-2025 Telephone encounter Note* Telephone Encounter - Yaw Singh MD - 09/04/2024 9:43 PM EDT Let patient know the mammogram and Us shows benign breast tissue on the right (Gynecomastia). See if he has the MRI set up and if so when. Would wait on this and if ok the next step would be to see surgeon for removal of the tissue. [facility]05-27-[facility] Evaluation note* Diagnosis Onset Date Resolution Status [...] L5 vertebra acute November 14, 2024 9:28am [facility] Work Phone: 1(369) 102-565605-27-2025 Telephone encounter Note* Telephone Encounter - Erin Du LPN - 09/02/2024 8:47 AM EDT Last OV 05/02/24 Next OV 11/07/24 Pended Rx. Erin Du LPN [facility]05-27-[facility]25 Miscellaneous Notes* Telephone Encounter - Erin Du LPN - 09/02/2024 8:47 AM EDT Last OV 05/02/24 Next OV 11/07/24 Pended Rx. Erin Du LPN * Telephone Encounter - Nuria Sanches - 09/02/2024 8:41 AM EDT Patient called for refill on Pantoprazole 40 mg and to send it to [facility]. He is all out. Nuria Sanches documented in this encounterOhiohealth Van [facility]05-27-2025 Telephone encounter Note * Telephone Encounter - Nuria Sanches - 09/02/2024 8:41 AM EDT Patient called for refill on Pantoprazole 40 mg and to send it to [facility]. He is all out. Nuria Sanches [facility]05-21-2025 NoteHNO ID: [id number] Author: LUPE BLACK RT(R) Service: ? Author [...] PATIENT PRESENTS WITH AN IMPLANTABLE OR ATTACHED DIMMER BOARD OPERATOR: No RADIOLOGY DEPARTMENT: Mammography PERIPHERAL IV DATA: Not applicable SIGNED BY: RT Adam(R) August 27, 2024 9:52 [facility]05-14-2025 NoteHNO ID: [id number] Author: STEVE YOUSSEF PA-C Service: ? Author Type: Physician Construction Producer Type: Progress Notes Filed: 08/20/2024 18:42 Note Text: This note was created using [employer]. Subjective Jacob Landa is a 69 year [...] low Diagnostic procedures: low Management options: [facility] History of Present illness Narrative* Steve Youssef PA-C - 08/20/2024 6:32 PM EDT This note was created using [employer] Subjective Jacob Landa is a 69 year [...] low Steve Youssef PA-C documented in this encounterOhiohealth Van Wert Hospital05-14-2025 History of Present illness Narrative* Maximiliano Sotomayor [...] PATIENT PRESENTS WITH AN IMPLANTABLE OR ATTACHED DIMMER BOARD OPERATOR: No RADIOLOGY DEPARTMENT: General X-ray: Exam(s) Completed: Spine X-Ray(s): Lumbar AP / LAT / L5-S1 PERIPHERAL IV DATA: Not applicable SIGNED BY: Barry Rubalcava August 20, 2024 8:48 AM documented in this encounterOhiohealth Van Wert Hospital05-14-2025 NoteHNO ID: [id number] Author: MAXIMILIANO SOTOMAYOR Tech Service: ? Author [...] PATIENT PRESENTS WITH AN IMPLANTABLE OR ATTACHED DIMMER BOARD OPERATOR: No RADIOLOGY DEPARTMENT: General X-ray: Exam(s) Completed: Spine X-Ray(s): Lumbar AP / LAT / L5-S1 PERIPHERAL IV DATA: Not applicable SIGNED BY: Barry Rubalcava August 20, 2024 8:48 [facility]05-13-2025 NoteHNO ID: [id number] Author: JOSUE OQUENDO RN Service: ? Author [...] Josue Oquendo RN August 19, 2024 2:19 [facility]05-13-2025 History of Present illness Narrative* Josue Oquendo [...] 19, 2024 2:19 PM documented in this encounterOhiohealth Van Wert [facility]05-13-2025 NotePatient Outreach ([facility]) JACOB LANDA ([id number]) 1955 M Date Time Provider Department 08/19/24 [...] (FLONASE) 50 mcg/actuation nasal spray Use 1 Byron in each nostril once daily. - ferrous [...] cancer [Z12.11] 11/24/2016 Obes (more content not included)...[facility]04-29-2025 NoteHNO ID: [id number] Author: JOSUE OQUENDO RN Service: ? Author [...] were you homeless or living in a group home (including now)?: No Transportation Needs In the [...] Josue Oquendo RN August 05, 2024 12:56 [facility]04-29-2025 History of Present illness Narrative* Josue Oquendo RN - 08/05/2024 12:54 PM EDT CDM ENROLLMENT Provider Action / FYI: Patient identified by name and date of . Discussed care with patient. Program Details Chronic Disease Management Status: Enrolled Effective Dates: 07/17/2024 - present Responsible Staff: Joseu Oquendo RN Support and Services: Advanced Illness [...] were you homeless or living in a group home (including now)?: No Transportation Needs In the [...] In the past 12 months has the [employer], gas, oil, or water [employer] threatened to shut off services in your home?: No Tobacco Use Patient reports that he has never smoked. He has never used smokeless tobacco. Interventions The following were addressed during this visit: - Intake assessments completed: ADLs, Fall Risk, SDOH - Patient-stated goal addressed (add comment) - Bi-Weekly Outreach (Recurring) Josue Oquendo RN August 05, 2024 12:56 PM documented in this encounterOhiohealth Van [facility]04-29-2025 NoteHNO ID: [id number] Author: MARCELA REAL PA Service: ? Author Type: Physician Construction Producer Type: Progress Notes Filed: 08/05/2024 12:54 Note [...] kidney disease) stage 4, GFR 15-29 ml/min ([facility]) 01/03/2024 On dialysis and seeing Dr. Greenberg. Closed wedge compression fracture of T10 vertebra ([facility]) 07/12/2023 Coronary artery disease involving [place] coronary artery without angina pectoris Seeing Dr. [...] 11/17/2020 Personal history of colonic polyps 12/27/2009 Piece Cutter's nodules 03/30/2023 Will try pamelor Pleural effusion [...] COLONOSCOPY W/BIOPSY SINGLE/MULTIPLE 02/22/2007 Diminutive polyp distal [id number] ECHO 01/08/2021 EGD 04/15/2020 HEART CATHETERIZATION 12/2018 [...] TONSILLECTOMY PRIMARY/SECONDARY Tonsillectomy TOT/SUB ESOPHAGECTOMY W/THORACOT 08/09/2020 [place] esophagectomy, jejunostomy tube placement TOTAL HIP REPLACEMENT Left 02/15/2024 ALLERGIES Seasonal Allergies MEDICATIONS OLANZapine (ZYPREXA) 2.5 mg tablet TAKE 1 TABLET BY MOUTH ONCE DAILY AT BEDTIME ezetimibe (ZETIA) 10 mg tablet Take 1 tablet by mouth once daily. atorvastatin (LIPITOR) 80 mg tablet Take 1 tablet by mouth daily at bedtime. metoprolol tartrate, short acting, (LOP (more content not included)...[facility]04-29-2025 History of Present illness Narrative* Marcela Real [...] kidney disease) stage 4, GFR 15-29 ml/min ([facility]) 01/03/2024 On dialysis and seeing Dr. Greenberg. Closed wedge compression fracture of T10 vertebra ([facility]) 07/12/2023 Coronary artery disease involving [place] coronary artery without angina pectoris Seeing Dr. Noland DDD (degenerative disc disease), lumbar 11/04/2019 Elevated blood sugar 03/11/2024 Esophageal adenocarcinoma ([facility]) 08/09/2020 Essential hypertension, benign Family history of breast cancer 06/30/2024 Family history of ovarian cancer 06/30/2024 GERD (gastroesophageal reflux disease) 07/12/2009 History of kidney stones 07/20/2014 Iron deficiency anemia due to chronic blood loss 05/25/2020 Iron malabsorption 05/25/2020 Kidney stone Kyphosis (acquired) (postural) 07/30/[address] 03/11/2024 DPA: Lacho (step daughter) Malignant neoplasm of lower third of esophagus ([facility]) 04/15/2020 Medicare annual wellness visit, subsequent 01/13/2021 Medical B eligibilty date 03/09/19 Date of last exam 01/13/2021 Mixed hyperlipidemia MRSA (methicillin resistant Staphylococcus aureus) 12/01/2016 treated with course of Linezolid beginning 10/29/16 Nonrheumatic aortic valve disorder On tube feeding diet 08/14/2020 History: 65 year old male s/p [place] esophagectomy, Pyloromyotomy, Jejunostomy tube placement for esophageal adenocarcinoma -Diet: Isosource 1.5 to 50 cc hour with 100 cc water flushes 8 times per day and Bene protein 3 times per day Removed 11/17/2020 Personal history of colonic polyps 12/27/2009 Piece Cutter's nodules 03/30/2023 Will try pamelor Pleural effusion [...] COLONOSCOPY W/BIOPSY SINGLE/MULTIPLE 02/22/2007 Diminutive polyp distal [id number] ECHO 01/08/2021 EGD 04/15/2020 HEART CATHETERIZATION 12/2018 [...] (FLONASE) 50 mcg/actuation nasal spray Use 1 Byron in each nostril once daily. ferrous sulfate [...] patient was discharged. Procedures documented in this encounterOhiohealth Van [facility]04-29-2025 NotePatient Outreach ([facility]) JACOB LANDA ([id number]) 1955 M Date Time Provider Department 08/05/24 [...] were you homeless or living in a group home (including now)?: No Transportation Needs In the [...] In the past 12 months has the [employer], gas, oil, or water [employer] threatened to shut off services in your [...] (FLONASE) 50 mcg/actuation nasal spray Use 1 Byron in each nostril once daily. - ferrous sulfate (SLOW FE) 137 mg (45 mg iron) TbER Take 1 tablet by mouth every other day. - ascorbic acid, vitamin C, (VITAMIN C) 500 mg tablet Take 1 tablet by mouth every other day. - ondansetron orally disintegrating (ZOFRAN ODT) 4 mg disintegrating tablet Take 1 tablet by mo (more content not included)...[facility] 07-29-2024 NoteHNO ID: [id number] Author: ALBERTA CANDELARIA MA Service: ? Author Type: Completion Supervisor Type: Progress Notes Filed: 07/29/2024 16:19 Note Text: Scan on 07/22/2024 5:29 PM by ProviderDanette PA-C: Consultation - General Surgery - follow up on AVF on 07/01/2024 Alberta Candelaria [facility]04-22-2025 History of Present illness Narrative* Alberta Candelaria MA - 07/29/2024 4:18 PM EDT Scan on 07/22/2024 5:29 PM by ProviderDanette PA-C: Consultation - General Surgery - follow up on AVF on 07/01/2024 Alberta Candelaria MA documented in this encounterOhiohealth Van Wert Hospital04-15-2025 Evaluation note* Diagnosis Onset Date Resolution Status Admit Date AV fistula acute July 22 2:11pm AV fistula acute September 02, 2024 1:47pm Tunneled central venous cath eter present acute October 15, 2024 9 :01am [facility] [employer] Work Phone: 1(927) 205-189104-04-2025 Telephone encounter Note* Telephone Encounter - Brandie Bailey RN - 07/11/2024 9:44 AM EDT See TE 07/11/2024. Brandie Bailey RN [facility]04-04-2025 Miscellaneous Notes* Telephone Encounter - Brandie Bailey RN - 07/11/2024 9:44 AM EDT See TE 07/11/2024. Brandie Bailey RN documented in this encounterOhiohealth Van Wert Hospital04-04-2025 Telephone encounter Note * Telephone Encounter - Brandie Bailey RN - 07/11/2024 9:42 AM EDT Patient calls and notified of results and providers instructions. Patient verbalizes understanding.Patient has scheduled mammogram and US. Will wait to schedule MRI-Brain once insurance authorization received. Brandie Bailey RN [facility]04-04-2025 Telephone encounter Note* Telephone Encounter - Stacia [...] mammogram and US as recommended by PCP. [facility]04-03-2025 Telephone encounter Note* Telephone Encounter - Isa [...] Godoy LPN July 10, 2024 7:48 AM [facility]04-03-2025 Miscellaneous Notes* Telephone Encounter - Isa Godoy [...] 10, 2024 7:48 AM documented in this encounterOhiohealth Van Wert Hospital03-28-2025 NoteHNO ID: [id number] Author: ALBERTA CANDELARIA MA Service: ? Author Type: Completion Supervisor Type: Progress Notes Filed: 07/04/2024 12:23 Note Text: Scan on 06/30/2024 7:24 AM by Danette Houston PAHailyC: Consultation - Vascular Medicine/Vascular Surgery Scan on 06/30/2024 6:11 PM by Danette Houston PA-C: BENITEZ Candelaria, [facility]03-28-2025 History of Present illness Narrative* Alberta Candelaria MA - 07/04/2024 12:15 PM EDT Scan on 06/30/2024 7:24 AM by Provider, OPAL Samaniego: Consultation - Vascular Medicine/Vascular Surgery Scan on 06/30/2024 6:11 PM by Provider, OPAL Samaniego: BENITEZ Candelaria MA documented in this encounterOhiohealth Van Wert Hospital03-24-2025 NoteHNO ID: [id number] Author: YAW SINGH MD Service: ? Author [...] vertebra (HCC) 07/12/2023 Coronary artery disease involving [place] coronary artery without angina pectoris Seeing Dr. [...] Malignant neoplasm of lower third of esophagus ([facility]) 04/15/2020 Medicare annual wellness visit, subsequent 01/13/2021 Medical B eligibilty date 03/09/19 Date of last exam 01/13/2021 Mixed hyperlipidemia MRSA (methicillin resistant Staphylococcus aureus) 12/01/2016 treated with course of Linezolid beginning 10/29/16 Nonrheumatic aortic valve disorder On tube feeding diet 08/14/2020 History: 65 year old male s/p [place] esophagectomy, Pyloromyotomy, Jejunostomy tube placement for esophageal adenocarcinoma -Diet: Isosource 1.5 to 50 cc hour with 100 cc water flushes 8 times per day and Bene protein 3 times per day Removed 11/17/2020 Personal history of colonic polyps 12/27/2009 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 Pressure ulcer of unspecified buttock, stage 2 ([facility]) 01/03/2024 Bilaterally. Primary insomnia 03/30/2023 S/P CABG [...] COLONOSCOPY W/BIOPSY SINGLE/MULTIPLE 02/22/2007 Diminutive polyp distal [id number] ECHO 01/08/2021 EGD 04/15/2020 HEART CATHETERIZATION 12/2018 [...] TONSILLECTOMY PRIMARY/SECONDARY Tonsillectomy TOT/SUB ESOPHAGECTOMY W/THORACOT 08/09/2020 [place] esophagectomy, jejunostomy tube placement TOTAL HIP REPLACEMENT Left 02/15/2024 Family History FAMILY HISTORY Problem Relation Age of Onset Cancer Mother OVARIAN AND THYROID CA Breast Cancer Mother Ischemic Heart Disease Father from Cerebral Hemmorrhage age 50 other (mva) Brother Cancer Sister Bone Marrow CA (more content not included)...[facility] 06-30-2024 History of Present illness Narrative* Yaw [...] vertebra (HCC) 07/12/2023 Coronary artery disease involving [place] coronary artery without angina pectoris Seeing Dr. [...] 08/14/2020 History: 65 year old male s/p [place] esophagectomy, Pyloromyotomy, Jejunostomy tube placement for esophageal adenocarcinoma -Diet: Isosource 1.5 to 50 cc hour with 100 cc water flushes 8 times per day and Bene protein 3 times per day Removed 11/17/2020 Personal history of colonic polyps 12/27/2009 Piece Cutter's nodules 03/30/2023 Will try pamelor Pleural effusion [...] COLONOSCOPY W/BIOPSY SINGLE/MULTIPLE 02/22/2007 Diminutive polyp distal [id number] ECHO 01/08/2021 EGD 04/15/2020 HEART CATHETERIZATION 12/2018 [...] (FLONASE) 50 mcg/actuation nasal spray Use 1 Byron in each nostril once daily. (Patienttaking differently: Use 1 Byron in each nostril as needed.) ferrous sulfate [...] which included preparing to see the patient, [id number] patient care, completing clinical documentation, performing a medically appropriate examination, counseling and educating the patient/family/caregiver and ordering medications, tests, or procedures. SENSITIVE EXAMINATION CONSENT: The sensitive examination was discussed with the Patient or Patient's Authorized Homicide Investigator. Asapplicable, any other physician, advance practice provider, medical student, or other health professional student that will be observing or involved in the sensitive examination for educational or training purposes was discussed with the Patient or Authorized Homicide Investigator. The Patient or Authorized Homicide Investigator has agreed to proceed with the sensitive examination. Yaw Singh MD documented in this encounterOhiohealth Van Wert Hospital03-24-2025 Consult note Author Antwan Pettit [facility] Note Date/Time June 30, 2024 9:3 5am [facility] Medical Records Department [address] [place] [address] Anesthesia Postop Eval I 06/30/24 0933 MR#: [id number] Acct: [id number] Name: JACOB LANDA Rep #:[id number] : 1955 69 From: Antwan Pettit CRNA PCP: Dr. Yaw Singh MD Status:REG SDC Y Race: C Location: [place] [address] Anesthesia: Postop Eval I Current Vital Signs [...] CRNA Cosigner Signature: Date CC: ~ Signed [facility] Work Phone: 1(260) 106-510703-24-2025 Discharge summary Author Nikita [facility] Note Date/Time June 30, 2024 9:[address] [facility] Medical Records Department [address] [place] [id number] Instructions for Home/Discharge Instructions 06/30/2413 MR#: [id number] Acct: [id number] Name: JACOB LANDA Rep #:[id number] : [...] Care Provider: Yaw Singh Instructions Print Language: Nigerien Discharge Orders/Prescriptions Prescriptions: New oxycodone 5 mg [...] CC: Dr. Yaw Singh MD ~ Signed [facility] Work Phone: 1(718) 946-156103-24-2025 Consult note [facility] Medical Records Department [address] [place] [address] Anesthesia Postop Eval II 06/30/24 1015 MR#: [id number] Acct: [id number] Name: JACOB LANDA Rep #:[id number] : 1955 69 From: Tawny Covington PCP: Dr. Yaw Singh MD Status:REG SDC Y Race: C Location: [facility]- Anesthesia Postop Eval I Sum Postop Eval Completion status Anesthesia document: Postop Eval 1 completed: Yes Anesthesia Postop Eval I Summary Anesthesia Postop Eval I Summary: Anesthesia Postop Eval I: Assessment Summary Airway patent Yes 06/30/24 09:34 [email or web address] [email or web address] Spontaneous unlabored Yes 06/30/24 09:34 [email or web address] [email or web address] respirations Mental status Awake,Calm 06/30/24 09:34 [email or web address] [email or web address] nausea No 06/30/24 09:34 [email or web address] [email or web address] Vomiting No 06/30/24 09:34 [email or web address] [email or web address] Anesthesia Postop Eval I: Fluid Summary Crystalloid volume administer 250 06/30/24 09:34 [email or web address] [email or web address] (ml) Colloids volume administered ( ml) Blood Product volume administered (ml) Total IV fluid infused 250 06/30/24 09:34 [email or web address] Anesthesia Postop Eval I: Summary Notes Anesthesia Complication Yes 06/30/24 09:34 [email or web address] [email or web address] Anesthesia Complication right nares with 06/30/24 09:34 [email or web address] Comment: epistaxis from npa Post-operative progress note Anesthesia: Postop Eval II Evaluation Mental status: Awake Pain Level: 2 nausea: No Vomiting: No 06/30/24 1016 a> Date _ Tawny Santos Signature: Date CC: ~ Signed [facility]03-24-2025 Consult note [facility] Medical Records Department [address] [place] [address] Anesthesia Postop Eval I 06/30/24 0933 MR#: [id number] Acct: [id number] Name: JACOB LANDA Rep #:[id number] : 1955 69 From: Antwan Pettit CRNA PCP: Dr. Yaw Singh MD Status:REG [facility] Y Race: C Location: [address] Anesthesia: Postop Eval I Current Vital [...] Eval 1 completed: Yes 06/30/24 0935 y CARPET CUTTER> Date _ Antwan Pettit CARPET CUTTER Cosigner Signature: Date CC: ~ Signed [facility]03-24-2025 Consult note Author Guillermo [facility] Note Date/Time June 30, 2024 7:3 4am [facility] Medical Records Department [address] [place] [address] Pre-Anesthesia Evaluation 06/30/24 0723 MR#: [id number] Acct: [id number] Name: JACOB LANDA Rep #:[id number] : 1955 69 From: Guillermo Eckert MD PCP: Dr. Yaw Singh MD Status:[facility] Y Race: C Location: [place] [address] ASA Classification* ASA Classification ASA Classification: 3 [...] Arteriovenous Fistula,Creation Anesthesia History Anesthesia History - restaurant assistant: Anesthesia History - restaurant assistant Hx Hospitalization Yes: KIDNEY PROBLEMS, 06/02/24 10:59 [...] take am of surgery PONV PONV - restaurant assistant: PONV - restaurant assistant Female No 06/02/24 10:59 HX of Motion [...] 06/30/24 07:02 Respiratory Assessment Respiratory Assessment - restaurant assistant: Respiratory Tract Infection Hx - restaurant assistant Hx Respiratory Tract Infection No 06/02/24 10:59 STOP Sleep Apnea STOP Sleep Apnea - restaurant assistant: STOP Sleep Apnea - restaurant assistant Hx Hypertension Yes: CONTROLLED ON MEDS 06/02/24 [...] Tobacco Use History Tobacco Use History - restaurant assistant: Tobacco Use History - restaurant assistant Tobacco Use Smoking Status Never smoker 06/02/24 10:59 Hx Tobacco Use No 06/02/24 10:59 Years Smoking Packs Smoked per Day Smoking Cessation Date was within the last 15 years Hx Smoking Cessation Date Hx Smoking Cessation Counseling Hematologic Medial History Hematologic Hx - restaurant assistant: Hematologic Medical Hx - patient navigator Hx of Blood Transfusion No 06/02/24 10:59 [...] confused, unrespo /Reproduction History /Reproductive History - restaurant assistant: /Reproductive Hx- restaurant assistant Hx Now No 06/02/24 10:59 Gestational Age [...] Esophageal carcinoma Atherosclerosis of coronary artery of [place] heart without angina pectoris 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 Essential (primary) hypertension Non-rheumatic aortic stenosis Syncope and collapse Hyperlipidemia Atherosclerotic heart disease of [place] coronary artery with other forms of angina [...] MD Cosigner Signature: Date CC: ~ Signed [facility] Work Phone: 1(605) 787-495003-24-2025 History and physical note Author Nikita Jackson [facility] Note Date/Time June 30, 2024 7:1 7am [facility] Medical Records Department [address] [place] [address] History & Physical Exam 06/30/24 0714 MR#: [id number] Acct: [id number] Name: JACOB LANDA Rep #:[id number] : 1955 69 From: Nikita Jackson MD PCP: Dr. Yaw Singh MD Status:[facility] Location: [place] [address] HPI - General HPI Narrative JACOB LANDA, is a 69 M who presents with ESRD currently on dialysis after LEELA last year with no recovery of renal function. He had vein mapping that revealed adequate left upper arm cephalic, basilic veins. 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 Yaw Singh MD~ Signed [facility] Work Phone: 1(761) 650-374803-24-2025 Discharge summary [facility] Medical Records Department [address] [place] [address] Instructions for Home/Discharge Instructions 06/30/24 0913 MR#: [id number] Acct: [id number] Name: JACOB LANDA Rep #:[id number] : 1955 69 From: Nikita Jackson MD PCP: Dr. Yaw Singh MD Status:REG [facility] Discharge Instructions Diet Discharge Diet: No restrictions [...] Care Provider: Yaw Singh Instructions Print Language: Nigerien Discharge Orders/Prescriptions Prescriptions: New oxycodone 5 mg [...] CC: Dr. Yaw Singh MD ~ Signed [facility]03-24-2025 Evaluation note* Diagnosis Onset Date Resolution Status Admit Date ESRD (end stage renal diseas e) on dialysis chronic June 30, 2024 6:45am AV fistula acute July 22 2:11pm [facility] Work Phone: 1(759) 345-471003-24-2025 Evaluation note* Diagnosis Onset Date Resolution Status Admit Date ESRD (end stage renal diseas e) on dialysis chronic June 30, 2024 6:45am AV fistula acute July 22 2:11pm AV fistula acute September 02, 2024 1:47pm [facility] Work Phone: 1(385) 749-751103-24-2025 Evaluation note* Diagnosis Onset Date Resolution Status Admit Date ESRD (end stage renal diseas e) on dialysis chronic June 30, 2024 6:45am AV fistula acute July 22 2:11pm AV fistula acute September 02, 2024 1:47pm Tunneled central venous catheter present acute October 15, 2024 9:01am [facility] Work Phone: 1(453) 304-881103-24-2025 Consult note [facility] Medical Records Department [address] [place] [address] Pre-Anesthesia Evaluation 06/30/24722 MR#: [id number] Acct: [id number] Name: JACOB LANDA Rep #:[id number] : 1955 69 From: Guillermo Eckert MD PCP: Dr. Yaw Singh MD Status:REG SDC Y Race: C Location: [place] [address]- ASA Classification* ASA Classification ASA Classification: 3 [...] Arteriovenous Fistula,Creation Anesthesia History Anesthesia History - restaurant assistant: Anesthesia History - restaurant assistant Hx Hospitalization Yes: KIDNEY PROBLEMS, 06/02/24 10:59 [...] take am of surgery PONV PONV - restaurant assistant: PONV - restaurant assistant Female No 06/02/24 10:59 HX of Motion [...] 06/30/24 07:02 Respiratory Assessment Respiratory Assessment - restaurant assistant: Respiratory Tract Infection Hx - restaurant assistant Hx Respiratory Tract Infection No 06/02/24 10:59 STOP Sleep Apnea STOP Sleep Apnea - restaurant assistant: STOP Sleep Apnea - restaurant assistant Hx Hypertension Yes: CONTROLLED ON MEDS 06/02/24 [...] Tobacco Use History Tobacco Use History - restaurant assistant: Tobacco Use History - restaurant assistant Tobacco Use Smoking Status Never smoker 06/02/24 10:59 Hx Tobacco Use No 06/02/24 10:59 Years Smoking Packs Smoked per Day Smoking Cessation Date was within the last 15 years Hx Smoking Cessation Date Hx Smoking Cessation Counseling Hematologic Medial History Hematologic Hx - restaurant assistant: Hematologic Medical Hx - patient navigator Hx of Blood Transfusion No 06/02/24 10:59 [...] confused, unrespo /Reproduction History /Reproductive History - restaurant assistant: /Reproductive Hx- restaurant assistant Hx Now No 06/02/24 10:59 Gestational Age [...] Esophageal carcinoma Atherosclerosis of coronary artery of [place] heart without angina pectoris 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 Medical Records Department [address] [place] [address] History & Physical Exam 06/30/24713 MR#: [id number] Acct: [id number] Name: JACOB LANDA Rep #:[id number] : 1955 69 From: Nikita Jackson MD PCP: Dr. Yaw Singh MD Status:[facility] Location: [place] [address] HPI - General HPI Narrative JACOB LANDA, is a 69 M who presents with ESRD currently on dialysis after LEELA last year with no recovery of renal function. He had vein mapping that revealed adequate left upper arm cephalic, basilicveins. 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 Yaw Singh MD~ Signed [facility]03-24-[address] [facility] Medical Records Department [address] [place] [address] History Physical Exam 06/30/24713 MR#: [id number] Acct: [id number] Name: JACOB LANDA Rep #: [id number] : 1955 69 From: Nikita Jackson MD PCP: Dr. Yaw Singh MD Status:[facility] Location: [place] [address] HPI - General HPI Narrative JACOB LANDA, is a 69 M who presents with ESRD currently on dialysis after LEELA last year with no recovery of renal function. He had vein mapping that revealed adequate left upper arm cephalic, basilic veins. 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 No answer. Left message requesting pt return my call. KATHERYN Dye LISW-S, [facility] Transplant Telegraph Editor [facility] Work Phone: [phone] 375-473703-14-2025 Miscellaneous Notes* Telephone Encounter - Hill Obrien LISW - 06/20/2024 10:44 AM EDT Call placed to pt to complete the scheduled kidney transplant psychosocial evaluation. No answer. Left message requesting pt return my call. KATHERYN Dye LISW-S, [facility] Transplant Telegraph Editor documented in this encounterOhiohealth [facility]03-05-2025 Instructions* Patient Instructions* Ezekiel Shah RN - [...] will be scheduled for you at a [facility] facility: CARDIAC: EKG-Today Cardiac Stress Test-Will schedule after discussion with your motion picture critic CANCER SCREENING: PSA with Evaluation-with labs today ADDITIONAL CONSULTS Cardiology-Will need clearance from your motion picture critic Oncology-Will need clearance from your oncologist Imaging Studies: Nothing further Miscellaneous Items: Labs-Today Outside test results should be faxed to [phone]. Please review the kidney transplant educational materials on line at [email or web address] Sign-in: Kidney To check on your status of your evaluation, please contact your coordinator, Wendy Christian RN [phone]. Ezekiel Shah RN Kidney/Pancreas Pre-Direct Care Staffer [facility] documented in this encounterOhiohealth [facility]03-05-2025 NoteHNO ID: [id number] Author: LACHO PA PA-C Service: ? Author Type: Physician Construction Producer Type: Progress Notes Filed: 06/13/2024 16:50 Note Text: [facility] [facility] Transplant Evaluation CC: Consultation for Kidney transplant evaluation. Referred by: Maria Victoria Scott [facility] [facility] [address] [address] I will communicate with the referring provider [...] 03/28/2024 through a TDC-plan for aVF on Sunday06/16/2024-[place] Patient presents ambulatory with cane. Does patient [...] vertebra (HCC) 07/12/2023 Coronary artery disease involving [place] coronary artery without angina pectoris Seeing Dr. [...] 11/17/2020 Personal history of colonic polyps 12/27/2009 Piece Cutter's nodules 03/30/2023 Will try pamelor Pleural effusion [...] could be st (more content not included)... [facility]03-05-2025 History of Present illness Narrative* Lacho aP PA-C - 06/11/2024 1:19 PM EST [facility] Transplant Evaluation CC: Consultation for Kidney transplant evaluation. Referred by: Maria Victoria Scott [address] [facility] [address] [address] I will communicate with the referring provider [...] 03/28/2024 through a TDC-plan for aVF on Sunday06/16/2024-[place] Patient presents ambulatory with cane. Does patient [...] kidney disease) stage 4, GFR 15-29 ml/min ([facility]) 01/03/2024 On dialysis and seeing Dr. Greenberg. Closed wedge compression fracture of T10 vertebra ([facility]) 07/12/2023 Coronary artery disease involving [place] coronary artery without angina pectoris Seeing Dr. Noland DDD (degenerative disc disease), lumbar 11/04/2019 Elevated blood sugar 03/11/2024 Esophageal adenocarcinoma ([facility]) 08/09/2020 Essential hypertension, benign GERD (gastroesophageal reflux disease) 07/12/2009 History of kidney stones 07/20/2014 Iron deficiency anemia due to chronic blood loss 05/25/2020 Iron malabsorption 05/25/2020 Kidney stone Kyphosis (acquired) (postural) 07/30/[address] 03/11/2024 DPA: Lacho (step daughter) Malignant neoplasm of lower third of esophagus ([facility]) 04/15/2020 Medicare annual wellness visit, subsequent 01/13/2021 Medical B eligibilty date 03/09/19 Date of last exam 01/13/2021 Mixed hyperlipidemia MRSA (methicillin resistant Staphylococcus aureus) 12/01/2016 treated with course of Linezolid beginning 10/29/16 Nonrheumatic aortic valve disorder On tube feeding diet 08/14/2020 History: 65 year old male s/p [place] esophagectomy, Pyloromyotomy, Jejunostomy tube placement for esophageal adenocarcinoma -Diet: Isosource 1.5 to 50 cc hour with 100 cc water flushes 8 times per day and Bene protein 3 times per day Removed 11/17/2020 Personal history of colonic polyps 12/27/2009 Piece Cutter's nodules 03/30/2023 Will try pamelor Pleural effusion [...] COLONOSCOPY W/BIOPSY SINGLE/MULTIPLE 02/22/2007 Diminutive polyp distal [id number] ECHO 01/08/2021 EGD 04/15/2020 HEART CATHETERIZATION 12/2018 [...] (FLONASE) 50 mcg/actuation nasal spray Use 1 Byron in each nostril once daily. (Patienttaking differently: Use 1 Byron in each nostril as needed.) ferrous sulfate [...] Alive breast cancer Fa at age 49 [place] Willem Aguilerary Sis Khushbu Sis Mariella Sis [...] are not limited to: bleeding, infection, , VT, DVT, PE, CVA, risk of damage to [...] case, find addendum below: documented in this encounterOhiohealth Van [facility]ert [facility]03-05-2025 NoteHNO ID: [id number] Author: ROBER IGLESIAS RN Service: ? Author [...] about Kidney Allocation Policy -Directions to access [facility]'s data through the [facility]. -Informed Consent for Transplant Program Participation patient education packet -National Kidney Registry pamphlet -Covid-19 Vaccination for Transplant Candidates Method of Instruction: Group class instruction Written instruction/Handouts Verbal instruction Patient/Family Response: Patient asked appropriate questions, which were answered satisfactorily. Follow-Up Plan: Complete - No need for follow-up Referral/Recommendation: None Rober Iglesias RN Pre-Transplant CoordinatorWvumedicine [facility]03-05-2025 History of Present illness Narrative* Rober Iglesias [...] about Kidney Allocation Policy -Directions to access [facility]'s data through the [facility] website. -Informed Consent for Transplant Program Participation patient education packet -National Kidney Registry pamphlet -Covid-19 Vaccination for Transplant Candidates Method of Instruction: Group class instruction Written instruction/Handouts Verbal instruction Patient/Family Response: Patient asked appropriate questions, which were answered satisfactorily. Follow-Up Plan: Complete - No need for follow-up Referral/Recommendation: None Rober Iglesias RN Pre-Direct Care Staffer documented in this encounterOhiohealth Van Wert Hospital03-05-2025 Instructions* Patient Instructions* Vicente Addison RD - [...] getting sauces on the side, asking your weather observer to have less salt added to your [...] of exercise per week. documented in this encounterOhiohealth Van Wert Hospital03-05-2025 History of Present illness Narrative* Vicente Addison, [...] getting sauces on the side, asking your weather observer to have less salt added to your meal, and limit your portion. Eggs, yogurt, nuts/nut butters, seeds, meat/fish/poultry, cheese, cottage cheese, and yogurt all contain protein. If on dialysis, your body needs more protein. Include protein each time you eat. Consider using a protein shake if this is suggested by your dialysis dietitian (such as Bryn or Rivka KeepGo Renal). If not on dialysis, your body [...] TIME: 10:45 AM PAGER: documented in this encounterOhiohealth Van [facility]ert [facility]03-05-2025 NoteHNO ID: [id number] Author: VICENTE ADDISON RD Service: ? Author [...] getting sauces on the side, asking your weather observer to have less salt added to your meal, and limit your portion. Eggs, yogurt, nuts/nut butters, seeds, meat/fish/poultry, cheese, cottage cheese, and yogurt all contain protein. If on dialysis, your body needs more protein. Include protein each time you eat. Consider using a protein shake if this is suggested by your dialysis dietitian (such as Bryn or Rivka KeepGo Renal). If not on dialysis, your body [...] DATE: June 11, 2024 TIME: 10:45 AM PAGER:[facility]03-05-2025 NoteEducation (DTBAMN) JACOB LANDA ([id number]) 1955 M Date Time Provider Department 06/11/24 [...] (FLONASE) 50 mcg/actuation nasal spray Use 1 Byron in each nostril once daily. - ferrous [...] for Encounter Date Provider Department Center 06/11/2024 [id number], MARLEY DTBAMN Main - A Bld Encounter Status:Closed by VICENTE ADDISON on 06/11/24[facility] 06-11-2024 NoteHNO ID: [id number] Author: GRABIEL RUFF MD Service: ? Author Type: Physician Type: Progress Notes Filed: 06/13/2024 11:56 Note Text: [facility] [place] [facility] Transplant Evaluation CC: Consultation for Kidney transplant evaluation. Referred by: Maria Victoria Scott [facility] [address] [address] I will communicate with the referring provider [...] and radiation with carboplatin and paclitaxel 05/2020-06/2020 [place] esophagectomy 08/09/2020 Adjuvant nivolumab DDD BPH [...] vertebra (HCC) 07/12/2023 Coronary artery disease involving [place] coronary artery without angina pectoris Seeing Dr. [...] 08/14/2020 History: 65 year old male s/p [place] esophagectomy, Pyloromyotomy, Jejunostomy tube placement for esophageal adenocarcinoma -Diet: Isosource 1.5 to 50 cc hour with 100 cc water flushes 8 times per day and Bene protein 3 times per day Removed 11/17/2020 Personal history of colonic polyps 12/27/2009 Hector' (more content not included)...[facility]03-05-2025 History of Present illness Narrative* Grabiel Ruff MD - 06/11/2024 9:30 AM EST [facility] [facility] Transplant Evaluation CC: Consultation for Kidney transplant evaluation. Referred by: Maria Victoria Scott [address] [address] I will communicate with the referring provider [...] and radiation with carboplatin and paclitaxel 05/2020-06/2020 [place] esophagectomy 08/09/2020 Adjuvant nivolumab DDD BPH [...] kidney disease) stage 4, GFR 15-29 ml/min ([facility]) 01/03/2024 On dialysis and seeing Dr. Greenberg. Closed wedge compression fracture of T10 vertebra (HCC) 07/12/2023 Coronary artery disease involving [place] coronary artery without angina pectoris Seeing Dr. 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 Pressure ulcer of unspecified buttock, stage 2 ([facility]) 01/03/2024 Bilaterally. Primary insomnia 03/30/2023 S/P CABG [...] COLONOSCOPY W/BIOPSY SINGLE/MULTIPLE 02/22/2007 Diminutive polyp distal [id number] ECHO 01/08/2021 EGD 04/15/2020 HEART CATHETERIZATION 12/2018 [...] (FLONASE) 50 mcg/actuation nasal spray Use 1 Byron in each nostril once daily. (Patienttaking differently: Use 1 Byron in each nostril as needed.) ferrous sulfate [...] Alive breast cancer Fa at age 49 [place] Willem Aguilerary Melany Khushbu Melany Mariella Sis [...] MD This note was partially generated using Scoutzie voice recognition system, and there may be some incorrect words, spellings, and punctuation that were not noted in checking the note before saving. documented in this encounterOhiohealth Van [facility]03-03-2025 NoteHNO ID: [id number] Author: ALBERTA CANDELARIA MA Service: ? Author Type: Completion Supervisor Type: Progress Notes Filed: 06/09/2024 15:53 Note Text: Scan on 06/06/2024 8:40 AM by Provider, External, PA-C: Hematology Scan on 06/06/2024 9:42 AM by Provider, External, PA-C: Chemistry Alberta Derrick, [facility]03-03-2025 History of Present illness Narrative* Alberta Candelaria MA - 06/09/2024 3:52 PM EST Scan on 06/06/2024 8:40 AM by Provider, ExternalOPAL: Hematology Scan on 06/06/2024 9:42 AM by Provider, External, OPAL: Chemistry Alberta Candelaria MA documented in this encounterOhiohealth Van [facility] Hospital02-28-2025 NoteHNO ID: [id number] Author: NISHA SCHULTZ, MICHELE Service: ? Author Type: Registered Nurse Type: Progress Notes Filed: 06/06/2024 13:56 Note Text: Kidney PreTransplant care clinician Referral source:Dialysis fax Mainstreaming Facilitator: Maria Victoria Scott2-18-25 CT abd/pel:Date done 04-17-24 ECHO/EF:Date 09-21-23/ 56% Kidney Disease Cause: Hx HTN, no biopsy Different from intake: Ezekiel discussed with Dr Lepe. OK to come in as long as can swallow pills, which patient said he couldWvumedicine [facility]02-28-2025 History of Present illness Narrative* Nisha Schultz, MICHELE - 06/06/2024 1:42 PM EST Kidney PreTransplant care clinician Referral source:Dialysis fax Mainstreaming Facilitator: Maria Victoria Scott2-18-25 CT abd/pel:Date done 04-17-24 ECHO/EF:Date 09-21-23/ 56% Kidney Disease Cause: Hx HTN, no biopsy Different from intake: Ezekiel discussed with Dr Lepe. OK to come in as long as can swallow pills, which patient said he could documented in this encounterOhiohealth [facility]02-28-2025 NoteHNO ID: [id number] Author: KRYSTINA QUINONES LPN Service: ? Author Type: LICENSED NURSE Type: Progress Notes Filed: 06/06/2024 09:02 Note Text: Scan on 06/06/2024 8:40 AM by ProviderDanette PA-C: HematologyW[facility]icine [facility]02-28-20[facility] History of Present illness Narrative* Krystina Quinones LPN - 06/06/2024 9:02 AM EST Scan on 06/06/2024 8:40 AM by ProviderDanette PA-C: Hematology documented in this encounterOhiohealth [facility]02-18-2025 Telephone encounter Note * Telephone Encounter - Susan Meredith - 05/27/2024 10:18 AM EST KIDNEY TRANSPLANT REFERRAL (enter above which organ the patient needs; Kidney, Pancreas or Kidney/Pancreas) Is this referral for a Safety Net or HIV Patient? No (Safety Net = Pt needing an additional transplant within 12 months for any organ) Jacob Landa [id number] Spoke with: Patient Referral Source: (Tx Access; Online; Fax; Internal or Self-Referral) Fax MARKETING AND DEVELOPMENT COORDINATOR / PHYSICIAN: MARIA VICTORIA SCOTT (see's at [...] referral for transplant to your ([place]OS) Medicaid watch case polisher? NA If the patient has Medicare A/B [...] Dialysis: Yes. If yes, date and location: [facility] Days: Dialysis start date: 03/28/2024 Dialysis Records scanned [facility] on 05/26/24 Do you have Diabetes? [...] and 1/3 of stomach removed all at [facility]. Had Radiation and Chemo last treatment approx June or July 2020. Hx of Hypertension? Yes Hx of VT/Heart Attack? No Hx of TIA/CVA or Stroke? No Are you on a blood thinner? Yes If YES which medication are you on? Baby aspirin Have you had a CABG or STENTS? Yes. If yes, date and location: CABG 5x done in 2002 at [facility] Hrt Stents 6x done about 2014 last done 2019 done at [facility] and aorta stent in [facility] Have you ever had a Stress Test? Yes. If yes, date and location: 01/08/2021 (see scanned doc in epicon 01/27/21) done at [facility] Have you ever had an Echo? Yes. [...] MyCHART Is the patient signed up for [employer]? No-patient doesn't have an email and not [...] Everywhere: Yes. Have records been requested from [facility]? No see epic and C.E. Route the referral to the Kidney Txp knockdown worker, Nisha Schultz. Susan Meredith [facility]02-18-2025 Miscellaneous Notes* Telephone Encounter - Susan Meredith - 05/27/2024 10:18 AM EST KIDNEY TRANSPLANT REFERRAL (enter above which organ the patient needs; Kidney, Pancreas or Kidney/Pancreas) Is this referral for a Safety Net or HIV Patient? No (Safety Net = Pt needing an additional transplant within 12 months for any organ) Jacob Landa [id number] Spoke with: Patient Referral Source: (Tx Access; Online; Fax; Internal or Self-Referral) Fax MARKETING AND DEVELOPMENT COORDINATOR / PHYSICIAN: MARIA VICTORIA SCOTT (see's at [...] referral for transplant to your (O) Medicaid watch case polisher? NA If the patient has Medicare A/B [...] Dialysis: Yes. If yes, date and location: [facility] Days: Dialysis start date: 03/28/2024 Dialysis Records scanned in [facility] on 05/26/24 Do you have Diabetes? [...] and 1/3 of stomach removed all at [facility]. Had Radiation and Chemo last treatment approx June or July 2020. Hx of Hypertension? Yes Hx of VT/Heart Attack? No Hx of TIA/CVA or Stroke? No Are you on a blood thinner? Yes If YES which medication are you on? Baby aspirin Have you had a CABG or STENTS? Yes. If yes, date and location: CABG 5x done in 2002 at [facility] Hrt Stents 6x done about 2014 last done 2018 done at [facility] and aorta stent in [facility] Have you ever had a Stress Test? Yes. If yes, date and location: [facility]20[facility] at [facility] Have you ever had an Echo? Yes. If yes, date and location: 09/21/2023 (see [facility]) Have you ever had a Cardiac Cath? Yes. If yes, date and location: 12/31/2018 CT Abdomen/Pelvis: Yes. If yes, date and location: 04/17/2024 (see [facility]) Colonoscopy: Yes. If yes, date and location: 06/01/2020 (see [facility]) Hx of Lupus? No Sickle Cell Trait or Disease: N/A Have you had any prior surgeries? Yes - Partial hip replaced (L) in Feb 2024, Tonsils removed as a child, port in chest uses for dialysis at this time. Do you have a potential living donor? No MyCHART Is the patient signed up for [employer]? No-patient doesn't have an email and not computer savvy. If YES - send patient the Kidney/Pancreas New Referral Message. If NO - obtain their email address AND send [employer] sign up information: email address: No e-mail address on record - No Email Is the patient okay with having a Virtual Appt: No - no email and not computer savvy. Have records been retrieved from Care Everywhere: Yes. Have records been requested from [facility]? No see epic and C.E. Route the referral to the Kidney Txp knockdown worker, Nisha Schultz. Susan Meredith documented in this encounterOhiohealth Van [facility] Hospital01-30-2025 Telephone encounter Note * Telephone Encounter - Erin Du LPN - 05/08/2024 8:36 AM EST Patient notified and voices understanding. Erin Du LPN [facility]01-30-2025 Miscellaneous Notes* Telephone Encounter - Erin Du LPN - 05/08/2024 8:36 AM EST Patient notified and voices understanding. Erin Du LPN * Telephone Encounter - Richard Jenkins DO - 05/07/2024 5:24 PM EST Can let him know the MRI scan shows no evidence of cancer in his back. Follow-up as scheduled. Richard Jenkins DO documented in this encounterOhiohealth Van Wert Hospital01-29-2025 Telephone encounter Note * Telephone Encounter - Richard Jenkins DO - 05/07/2024 5:24 PM EST Can let him know the MRI scan shows no evidence of cancer in his back. Follow-up as scheduled. Richard Jenkins DO [facility]01-29-2025 History of Present illness Narrative* Marilee Bosch [...] PATIENT PRESENTS WITH AN IMPLANTABLE OR ATTACHED DIMMER BOARD OPERATOR: No ALLERGIES: Reviewed and unchanged CONTRAST ALLERGY: NO. EXAM: MRI - CONTRAST TYPE: GROUP II PERIPHERAL IV DATA: Ambulatory: A peripheral IV was started in the Right antecubital site with a Angio cath: 24 gauge. RADIOLOGY DEPARTMENT: MR; Exam(s) Completed: Spine: Thoracic spine SIGNATURE: RT Gigi(R) PATIENT NAME: Jacob Landa DATE: May 07, 2024 TIME: 2:47 PM documented in this encounterOhiohealth Van Wert Hospital01-29-2025 NoteHNO ID: [id number] Author: MARILEE BOSCH RT(R) Service: ? Author [...] PATIENT PRESENTS WITH AN IMPLANTABLE OR ATTACHED DIMMER BOARD OPERATOR: No ALLERGIES: Reviewed and unchanged CONTRAST ALLERGY: NO. EXAM: MRI - CONTRAST TYPE: GROUP II PERIPHERAL IV DATA: Ambulatory: A peripheral IV was started in the Right antecubital site with a Angio cath: 24 gauge. RADIOLOGY DEPARTMENT: MR; Exam(s) Completed: Spine: Thoracic spine SIGNATURE: Marilee Aguero Nuria Bosch, RT(R) PATIENT NAME: Jacob Landa DATE: May 07, 2024 TIME: 2:47 [facility]01-29-2025 NoteHNO ID: [id number] Author: EDWIN MONTES APRN.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 Service: ? Author Type: Nurse Practitioner Type: [...] vertebra (HCC) 07/12/2023 Coronary artery disease involving [place] coronary artery without angina pectoris Seeing Dr. [...] 08/14/2020 History: 65 year old male s/p [place] esophagectomy, Pyloromyotomy, Jejunostomy tube placement for esophageal adenocarcinoma -Diet: Isosource 1.5 to 50 cc hour with 100 cc water flushes 8 times per day and Bene protein 3 times per day Removed 11/17/2020 Personal history of colonic polyps 12/27/2009 Piece Cutter's nodules 03/30/2023 Will try pamelor Pleural effusion [...] COLONOSCOPY W/BIOPSY SINGLE/MULTIPLE 02/22/2007 Diminutive polyp distal [id number] ECHO 01/08/2021 EGD 04/15/2020 HEART CATHETERIZATION 12/2018 [...] (FLONASE) 50 mcg/actuation nasal spray Use 1 Byron in each nostril once daily. ferrous sulfate [...] for nausea/vomiting. nitroglycerin subling (more content not included)...[facility] 05-07-2024 History of Present illness Narrative* Edwin Montes APRN.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 - 05/07/2024 8:53 AM EST Images from [...] kidney disease) stage 4, GFR 15-29 ml/min ([facility]) 01/03/2024 On dialysis and seeing Dr. Greenberg. Closed wedge compression fracture of T10 vertebra (HCC) 07/12/2023 Coronary artery disease involving [place] coronary artery without angina pectoris Seeing Dr. Noland DDD (degenerative disc disease), lumbar 11/04/2019 Elevated blood sugar 03/11/2024 Esophageal adenocarcinoma ([facility]) 08/09/2020 Essential hypertension, benign GERD (gastroesophageal reflux disease) 07/12/2009 History of kidney stones 07/20/2014 Iron deficiency anemia due to chronic blood loss 05/25/2020 Iron malabsorption 05/25/2020 Kidney stone Kyphosis (acquired) (postural) 07/30/[address] 03/11/2024 DPA: Lacho (step daughter) Malignant neoplasm of lower third of esophagus ([facility]) 04/15/2020 Medicare annual wellness visit, subsequent 01/13/2021 Medical B eligibilty date 03/09/19 Date of last exam 01/13/2021 Mixed hyperlipidemia MRSA (methicillin resistant Staphylococcus aureus) 12/01/2016 treated with course of Linezolid beginning 10/29/16 Nonrheumatic aortic valve disorder On tube feeding diet 08/14/2020 History: 65 year old male s/p [place] esophagectomy, Pyloromyotomy, Jejunostomy tube placement for esophageal adenocarcinoma -Diet: Isosource 1.5 to 50 cc hour with 100 cc water flushes 8 times per day and Bene protein 3 times per day Removed 11/17/2020 Personal history of colonic polyps 12/27/2009 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 Pressure ulcer of unspecified buttock, stage 2 ([facility]) 01/03/2024 Bilaterally. Primary insomnia 03/30/2023 S/P CABG [...] COLONOSCOPY W/BIOPSY SINGLE/MULTIPLE 02/22/2007 Diminutive polyp distal [id number] ECHO 01/08/2021 EGD 04/15/2020 HEART CATHETERIZATION 12/2018 [...] (FLONASE) 50 mcg/actuation nasal spray Use 1 Byron in each nostril once daily. ferrous sulfate [...] update Edwin Montes APRN.CNP documented in this encounterOhiohealth Van Wert Hospital01-24-2025 NoteHNO ID: [id number] Author: RICHARD JENKINS, DO Service: ? Author [...] abdomen: Dedicated CT abdomen pelvis dictated separately. Feed Crusher (topogram) images: No additional findings. CT A/P [...] chest CT performed will be reported separately. Feed Crusher (topogram) images: No additional findings. EGD/EUS 04/26/2020: A partially obstructing, malignant esophageal tumor was found to lower 30 esophagus. Gastric tumor in the cardia extension from distal (more content not included)...[facility]01-24-2025 History of Present illness Narrative* Richard Jenkins [...] abdomen: Dedicated CT abdomen pelvis dictated separately. Feed Crusher (topogram) images: No additional findings. CT A/P [...] chest CT performed will be reported separately. Feed Crusher (topogram) images: No additional findings. 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 Pain was most intense in March. MRI and PET reviewed by several radiologists. Consensus was no evidence of cancer and biopsy not recommended. He was seen at the spine center in [place]. Office visit 08/2023: Back pain significantly improved after passing kidney stones. Has days without back pain. 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 Here in the past couple weeks, I felt better than I felt since last summer. OV 01/15/2024: Has been hospitalized several times at [facility]. Developed end-stage renal disease and started dialysis. [...] No jaundice or rash. No petechiae. NEUROLOGIC: smoke room operator II-XII are grossly intact. No focal motor [...] which included preparing to see the patient, [id number] patient care, completing clinical documentation, obtaining and/or reviewing separately obtained history, and performing a medically appropriate examination. Richard Jenkins DO documented in this encounterOhiohealth Van Wert Hospital01-22-2025 NoteHNO ID: [id number] Author: KRYSTINA QUINONES LPN Service: ? Author Type: LICENSED NURSE Type: Progress Notes Filed: 04/30/2024 07:42 Note Text: Scan on 04/29/2024 2:53 PM by ProviderDanette PA-C: Consultation - CardiologyW[facility] History of Present illness Narrative* Krystina Quinones LPN - 04/30/2024 7:41 AM EST Scan on 04/29/2024 2:53 PM by ProviderDanette PA-C: Consultation - Cardiology documented in this encounterOhiohealth Van Wert Hospital01-20-2025 Evaluation note* Diagnosis Onset Date Resolution Status Admit Date ESRD (end stage renal disease) on dialysis chronic April 1:53pm ESRD (end stage renal disease) on dialysis chronic April 1:49pm Hyperlipidemia chronic April 292024 1:49pm History of aortic valve replacement March 03, 2019 resolved April 1:49pm Adenocarcinoma of esophagus inactive April 29, 2024 1:49pm Atherosclerosis of coronary artery of [place] heart without angina pectoris inactive April 29, 2024 1:49pm [facility] Work Phone: 1(358) 552-288501-20-2025 Evaluation note* Diagnosis Onset Date Resolution Status Admit Date ESRD (end stage renal disease) on dialysis chronic April 1:53pm ESRD (end stage renal disease) on dialysis chronic April 1:49pm Hyperlipidemia chronic April 292024 1:49pm History of aortic valve replacement March 03, 2019 resolved April 1:49pm Adenocarcinoma of esophagus inactive April 29, 2024 1:49pm Atherosclerosis of coronary artery of [place] heart without angina pectoris inactive April 29, 2024 1:49pm ESRD (end stage renal disease) on dialysis chronic June 30, 2024 6:45am [facility] Work Phone: 1(183) 262-533401-17-2025 NoteHNO ID: [id number] Author: KRYSTINA QUINONES LPN Service: ? Author Type: LICENSED NURSE Type: Progress Notes Filed: 04/25/2024 06:53 Note Text: Scan on 04/24/2024 1:51 PM by Provider, KRISTINA SamaniegoC: UltrasoundW[facility]umedicine [facility]01-17-2025 History of Present illness Narrative* Krystina Quinones LPN - 04/25/2024 6:53 AM EST Scan on 04/24/2024 1:51 PM by ProviderDanette PA-C: Ultrasound documented in this encounterOhiohealth Van Wert Hospital01-13-2025 Telephone encounter Note * Telephone Encounter - Hayde Summers LPN - 04/21/2024 11:25 AM EST Spoke with pt and information listed below given. Pt verbalizes understanding. Hayde Summers LPN [facility]01-13-2025 Miscellaneous Notes* Telephone Encounter - Hayde Summers [...] other labs were ok. documented in this encounterOhiohealth Van Wert Hospital01-13-2025 Telephone encounter Note * Telephone Encounter - Gayatri Pradhan MA - 04/21/2024 8:51 AM EST Message left for pt to call back for results. aGyatri Pradhan MA [facility]01-11-2025 Telephone encounter Note* Telephone Encounter - Yaw Singh MD - 04/19/2024 2:32 PM EST Let patient know the only thing out of sorts on his recent labs was his calcium and potassium were slightly and this will most likely be address with his dialysis. All his other labs were ok. [facility]01-[facility]25 Telephone encounter Note* Telephone Encounter - Erin Du LPN - 04/17/2024 2:54 PM EST Follow up here on 05/06/24. Rx pended. Erin Du LPN [facility]01-09-2025 Miscellaneous Notes* Telephone Encounter - Erin Du LPN - 04/17/2024 2:54 PM EST Follow up here on 1/28/25. Rx pended. Erin Du LPN * Telephone Encounter - Jennyfer Suresh - 04/17/2024 2:23 PM EST Patient in office and states he needs a RX.REFILL on his 2.5 MG Olanzapine Sent to [facility] documented in this encounterOhiohealth Van Wert Hospital01-09-2025 Telephone encounter Note * Telephone Encounter - Jennyfer Suresh - 04/17/2024 2:23 PM EST Patient in office and states he needs a RX.REFILL on his 2.5 MG Olanzapine Sent to [facility]01-09-2025 History of Present illness Narrative* Beatrice Zuleta [...] PATIENT PRESENTS WITH AN IMPLANTABLE OR ATTACHED DIMMER BOARD OPERATOR: No RADIOLOGY DEPARTMENT: CT; Exam(s) Completed: Chest Abdomen Pelvis PERIPHERAL IV DATA: Not applicable SIGNED BY: RT Geno(R) April 17, 2024 3:51 PM documented in this encounterOhiohealth Van Wert Hospital01-09-2025 NoteHNO ID: [id number] Author: BEATRICE ZULETA RT(R) Service: ? Author Type: Shake Table Operator Type: Progress Notes Filed: 04/17/2024 15:52 Note [...] PATIENT PRESENTS WITH AN IMPLANTABLE OR ATTACHED DIMMER BOARD OPERATOR: No RADIOLOGY DEPARTMENT: CT; Exam(s) Completed: Chest Abdomen Pelvis PERIPHERAL IV DATA: Not applicable SIGNED BY: RT Geno(R) April 17, 2024 3:51 [facility]12-03-2024 Instructions* Patient Instructions* Yaw Singh MD - [...] review all the medicines you take, even oegz-kab-mkdmosz medicines. As you get older, the way [...] have certain medical conditions. documented in this encounterOhiohealth Van Wert Hospital12-03-2024 History of Present illness Narrative* Yaw Singh [...] (Radiation Oncology) Luly Gaffney, RN as Specialty Business Communications Instructor (Oncology) Richard Jenkins DO as Referring (Hematology/Oncology) Haroldo Noland MD (Cardiology) Sena Seymour, RN (Inactive) as Telegraph Editor Friend, Bud Paul DO (Gastroenterology) Helen Gibson, Maegan Ferguson, RN as Primary Care Outsole Molder Medical/Family history review Reviewed and updated problem list, medical/surgical/family/social history, medications, and allergies. Opioid use review Opioid Medications (last 90 days) 01/03/2024 Opioid Medications hydrocodone/acetaminophen 1 tablet q 6 H PRN Given at [facility] ER 09/10/23 ORAL (2.5- 325 mg tab) [...] vertebra (HCC) 07/12/2023 Coronary artery disease involving [place] coronary artery without angina pectoris Seeing Dr. [...] 08/14/2020 History: 65 year old male s/p [place] esophagectomy, Pyloromyotomy, Jejunostomy tube placement for esophageal adenocarcinoma -Diet: Isosource 1.5 to 50 cc hour with 100 cc water flushes 8 times per day and Bene protein 3 times per day Removed 11/17/2020 Personal history of colonic polyps 12/27/2009 Piece Cutter's nodules 03/30/2023 Will try pamelor Pleural effusion [...] COLONOSCOPY W/BIOPSY SINGLE/MULTIPLE 02/22/2007 Diminutive polyp distal [id number] ECHO 01/08/2021 EGD 04/15/2020 HEART CATHETERIZATION 12/2018 [...] <AGE 11 Tonsillectomy TOT/SUB ESOPHAGECTOMY W/THORACOT 08/09/2020 [place] esophagectomy, jejunostomy tube placement Family History [...] (FLONASE) 50 mcg/actuation nasal spray Use 1 Byron in each nostril once daily. OLANZapine (ZYPREXA) [...] Lymph 1.00 - 4.00 k/uL 0.71 (L) Greer% % 8.3 Abs Greer <0.87 k/uL 0.53 Eosin% % 0.9 Abs [...] restart Zetia. 4. Coronary artery disease involving [place] coronary artery of [place] heart without angina pectoris- ICD9: 414.01, ICD10: [...] which included preparing to see the patient, fufn-ph-[id number] patient care, completing clinical documentation, performing a medically appropriate examination, counseling and educating the patient/family/caregiver and ordering medications, tests, or procedures. Yaw Singh MD documented in this encounterOhiohealth Van Wert Hospital12-03-2024 NoteHNO ID: [id number] Author: YAW SINGH MD Service: ? Author [...] (Radiation Oncology) Luly Gaffney RN as Specialty Business Communications Instructor (Oncology) Richard Jenkins DO as Referring (Hematology/Oncology) Haroldo Noland MD (Cardiology) Sena Seymour RN (Inactive) as Telegraph Editor Kiran, Bud Paul DO (Gastroenterology) Helen Gibson Judith Marie, MICHELE as Primary Care Outsole Molder Medical/Family history review Reviewed and updated problem list, medical/surgical/family/social history, medications, and allergies. Opioid use review Opioid Medications (last 90 days) 01/03/2024 Opioid Medications hydrocodone/acetaminophen 1 tablet q 6 H PRN Given at [facility] ER 09/10/23 ORAL (2.5-325 mg tab) -Discontinued [...] vertebra (HCC) 07/12/2023 Coronary artery disease involving [place] coronary artery without angina pectoris Seeing Dr. [...] 08/14/2020 History: 65 year old male s/p [place] esophagectomy, Pyloromyotomy, Jejunostomy tube placement for esophageal adenocarcinoma -Diet: Isosource 1.5 to 50 cc hour with 100 cc water flushes 8 times per day and Bene protein 3 times per day Removed 11/07 (more content not included)...[facility] 03-03-2024 NoteHNO ID: [id number] Author: YAW SINGH MD Service: ? Author Type: Physician Type: Progress Notes Filed: 03/03/2024 21:11 Note Text: Patient's home health 485 form / care plan for certification period 02/27/2024 to 04/26/2024 reviewed and signed. Relevant medical records were reviewed. [facility] were [facility] History of Present illness Narrative* Yaw Singh MD - 03/03/2024 9:08 PM EST Patient's home health 485 form / care plan for certification period 02/27/2024 to 04/26/2024 reviewed and signed. Relevant medical records were reviewed. Changes were communicated to home health agency documented in this encounterOhiohealth Van Wert Hospital11-10-2024 [facility] Medical Records Department [address] [place] [address] Discharge Summary 02/17/24 0904 MR#: [id number] Acct: [id number] Name: SYEDAJACOB OWENS Rep #: [id number] : [id number] 68 From: Gayatri Roy DO PCP: Dr. Yaw Singh MD Status:ADM IN Location: [place] [id number] Providers Date of Admission: 02/15/24 Date of [...] who presented to the emergency department at [facility] on 02/14/2024 with a chief complaint of [...] had minimal pain and did well with school physical therapist (more content not included)...[facility]11-08-2024 History of Present illness Narrative* Krystina Quinones LPN - 02/15/2024 8:08 AM EST Scan on 02/15/2024 12:13 AM by ProviderDanette PA-C: Consultation - Emergency Medicine Scan on 02/15/2024 6:44 AM by ProviderDanette PA-C documented in this encounterOhiohealth Van Wert Hospital10-28-2024 Telephone encounter Note * Telephone Encounter - [...] the patient to follow up with his motion picture critic for volume management as well as synchronous motor assembler. Patient gets dialysis MWF. All questions answered. [facility] Miscellaneous Notes* Telephone Encounter - Zachary Berkowitz [...] the patient to follow up with his motion picture critic for volume management as well as synchronous motor assembler. Patient gets dialysis MWF. All questions answered. documented in this encounterOhiohealth Van Wert Hospital10-24-2024 Instructions* Patient Instructions* Zachary Berkowitz APRN.CNP - 01/31/2024 9:56 AM EDT -Get chest xray today -Start Fluticasone (Flonase) 1-2 spray(s) (50 mcg/spray) per nostril once daily. -Start clotrimazole 10 mg neena 5x a day for 14 days for oral thrush documented in this encounterOhiohealth Van Wert Hospital10-24-2024 History of Present illness Narrative* Zachary Berkowitz [...] line. [facility]. Feeling tired at times. Otherwise feeling good. Last saw motion picture critic in the spring. States seeing them for [...] vertebra (HCC) 07/12/2023 Coronary artery disease involving [place] coronary artery without angina pectoris Seeing Dr. [...] 08/14/2020 History: 65 year old male s/p [place] esophagectomy, Pyloromyotomy, Jejunostomy tube placement for esophageal adenocarcinoma -Diet: Isosource 1.5 to 50 cc hour with 100 cc water flushes 8 times per day and Bene protein 3 times per day Removed 11/17/2020 Personal history of colonic polyps 12/27/2009 Piece Cutter's nodules 03/30/2023 Will try pamelor Pleural effusion [...] COLONOSCOPY W/BIOPSY SINGLE/MULTIPLE 02/22/2007 Diminutive polyp distal [id number] ECHO 01/08/2021 EGD 04/15/2020 HEART CATHETERIZATION 12/2018 [...] <AGE 11 Tonsillectomy TOT/SUB ESOPHAGECTOMY W/THORACOT 08/09/2020 [place] esophagectomy, jejunostomy tube placement I reviewed [...] normal. No congestion or rhinorrhea. Mouth/Throat: Lips: [place]. No lesions. Mouth: Mucous membranes are moist. [...] for labs including cytology -following with a motion picture critic for HF, encouraged him to follow up with his motion picture critic. Does not appear fluid overloaded on exam, [...] which included preparing to see the patient, lpfm-zx-kxlr patient care, completing clinical documentation, obtaining and/or reviewing separately obtained history, performing a medically appropriate examination, counseling and educating the pat ient/family/caregiver, and ordering medications, tests, or procedures . Zachary Berkowitz APRN.CNP Pulmonary Medicine documented in this encounterOhiohealth Van Wert Hospital10-22-2024 Telephone encounter Note * Telephone Encounter - Isa Godoy LPN - 01/29/2024 9:10 AM EDT Spoke with pt. He did receive message concerning results, will F/U with Dr. Beck as directed Isa Godoy LPN [facility]10-22-[facility]24 Miscellaneous Notes* Telephone Encounter - Isa Godoy [...] nausea. Richard Jenkins DO documented in this encounterOhiohealth Van Wert Hospital10-21-2024 Telephone encounter Note * Telephone Encounter - [...] to please contact office. Isa Godoy LPN [facility]10-21-2024 Telephone encounter Note* Telephone Encounter - Richard Jenkins DO - 01/28/2024 3:04 PM EDT Can let him know the results of the stomach x-ray and small bowel follow-through did not suggest any sign of cancer. He is scheduled to see Dr. Beck for possible stent placement in esophagus this may help with his symptoms of nausea. Richard Jenkins DO [facility]10-17-2024 History of Present illness Narrative* Brooke Samaniego [...] PATIENT PRESENTS WITH AN IMPLANTABLE OR ATTACHED DIMMER BOARD OPERATOR: No RADIOLOGY DEPARTMENT: General X-ray: Exam(s) Completed: GI/ Procedure(s): Upper GI with small bowel with barium contrast PERIPHERAL IV DATA: Not applicable SIGNED BY: RT Susan(R) January 24, 2024 2:36 PM documented in this encounterOhiohealth Van Wert Hospital10-17-2024 NoteHNO ID: [id number] Author: BROOKE SAMANIEGO RT(R) Service: ? Author Type: Shake Table Operator Type: Progress Notes Filed: 01/24/2024 14:36 Note [...] PATIENT PRESENTS WITH AN IMPLANTABLE OR ATTACHED DIMMER BOARD OPERATOR: No RADIOLOGY DEPARTMENT: General X-ray: Exam(s) Completed: GI/ Procedure(s): Upper GI with small bowel with barium contrast PERIPHERAL IV DATA: Not applicable SIGNED BY: RT Susan(R) January 24, 2024 2:36 [facility]10-11-2024 Telephone encounter Note* Telephone Encounter - Elvira Noriega LPN - 01/18/2024 1:02 PM EDT Appointment notes updated. Elvira Noriega LPN [facility]10-11-2024 Miscellaneous Notes* Telephone Encounter - Elvira Noriega [...] it OTC then can be ordered from [employer]. Isa Godoy LPN ' * Telephone Encounter - Richard Jenkins DO - 01/17/2024 3:25 PM EDT Can let him know that his copper level is slightly low. Recommend starting copper supplement, either copper gluconate or copper citrate 2 mg tablet once daily. If he cannot find it OTC then can be ordered from [employer]. Add copper level to labs when next here. Richard Jenkins DO documented in this encounterOhiohealth [facility]10-11-2024 Telephone encounter Note * Telephone Encounter - Richard Jenkins DO - 01/18/2024 12:56 PM EDT CBC/Retic count. [facility]10-10-2024 Telephone encounter Note* Telephone Encounter - Isa [...] it OTC then can be ordered from [employer]. Isa Godoy LPN ' [facility]10-10-2024 Telephone encounter Note* Telephone Encounter - Richard Jenkins DO - 01/17/2024 3:25 PM EDT Can let him know that his copper level is slightly low. Recommend starting copper supplement, either copper gluconate or copper citrate 2 mg tablet once daily. If he cannot find it OTC then can be ordered from [employer]. Add copper level to labs when next here. Richard Jenkins DO [facility]10-10-2024 Telephone encounter Note* Telephone Encounter - Mary Mims MA - 01/17/2024 12:27 PM EDT Pt informed Mary Mims MA [facility]10-10-2024 Miscellaneous Notes* Telephone Encounter - Mary Mims [...] on hold. Please advise? documented in this encounterOhiohealth Van Wert Hospital10-10-2024 Telephone encounter Note * Telephone Encounter - Yaw Singh MD - 01/17/2024 11:51 AM EDT Advise patient to continue to stay off the Amlodipine. His BP is still on the low side. [facility]10-10-2024 Telephone encounter Note* Telephone Encounter - Cathi De Souza LPN - 01/17/2024 11:15 AM EDT Pt calls states just left Dr. Farfan office and forgot to ask if he would like him to re start hisamlodipine now? States was on hold. Please advise? [facility]10-10-2024 History of Present illness Narrative* Yaw Singh [...] vertebra (HCC) 07/12/2023 Coronary artery disease involving [place] coronary artery without angina pectoris Seeing Dr. 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 Yaw Singh MD documented in this encounterOhiohealth [facility]10-08-2024 History of Present illness Narrative* Richard Jenkins, [...] abdomen: Dedicated CT abdomen pelvis dictated separately. Feed Crusher (topogram) images: No additional findings. CT A/P [...] chest CT performed will be reported separately. Feed Crusher (topogram) images: No additional findings. 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 Pain was most intense in March. MRI and PET reviewed by several radiologists. Consensus was no evidence of cancer and biopsy not recommended. He was seen at the spine center in [place]. Office visit 08/2023: Back pain significantly improved after passing kidney stones. Has days without back pain. 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 Here in the past couple weeks, I felt better than I felt since last summer. Presents for ongoing oncologic management. Interim history: Has been hospitalized several times at [facility]. Developed end-stage renal disease and started dialysis. [...] No jaundice or rash. No petechiae. NEUROLOGIC: smoke room operator II-XII are grossly intact. No focal motor [...] which included preparing to see the patient, [id number] patient care, completing clinical documentation, obtaining and/or reviewing separately obtained history, performing a medically appropriate examination, counseling and educating the pat ient/family/caregiver, ordering medications, tests, or procedures, communicating with other HCPs (not separately reported), and communicating results to the patient/family/caregiver. Richard Jenkins DO documented in this encounterOhiohealth [facility]10-07-2024 Telephone encounter Note * Telephone Encounter - [...] as well to address. Jannet Goldsmith MA [facility]10-07-2024 Miscellaneous Notes* Telephone Encounter - Jannet Goldsmith [...] get CBC repeated this documented in this encounterOhiohealth [facility]10-04-2024 Telephone encounter Note * Telephone Encounter - Alberta Candelaria MA - 01/11/2024 8:19 AM EDT Left additional message for patient to contact office. Alberta Candelaria MA [facility]10-03-2024 Telephone encounter Note* Telephone Encounter - Syl Jensen MA - 01/10/2024 3:16 PM EDT Kay from home health informed and verbalized understanding. Syl Jensen MA [facility]10-03-2024 Miscellaneous Notes* Telephone Encounter - Syl Jensen [...] to make you aware. documented in this encounterOhiohealth Van Wert Hospital10-03-2024 Telephone encounter Note * Telephone Encounter - Yaw Singh MD - 01/10/2024 3:00 PM EDT Advise Kay that if patient is becoming lethargic, confused, shortness of breath or fever will not come down that he needs to go to the ER. [facility]10-03-2024 Telephone encounter Note* Telephone Encounter - Cathi [...] .But did want to make you aware. [facility]10-01-2024 Telephone encounter Note* Telephone Encounter - Alberta Candelaria MA - 01/08/2024 10:10 AM EDT Patient was already seen. Alberta Candelaria MA [facility]10-01-2024 Miscellaneous Notes* Telephone Encounter - Alberta Candelaria MA - 01/08/2024 10:10 AM EDT Patient was already seen. Alberta Candelaria MA * Telephone Encounter - Alberta Candelaria MA - 01/02/2024 4:55 PM EDT Patient was D/C from [facility]. Spoke with nurse sadie to see if we could obtain any additional information such as the D/C summary from his stay at there facility and she indicated once the patient is D/C nursing staff doesn't have access to the patient's chart. She suggested calling Dr. Milner who is the director and would have been handling the patients car while there. Dr. Milner [phone] attempted to contact there office to obtain records they were experiencing high call volume was no longer able to stay on hold. Please try and call again tomorrow morning. Alberta Candelaria MA documented in this encounterOhiohealth Van Wert Hospital09-30-2024 Telephone encounter Note * Telephone Encounter - Gayatri Pradhan MA - 01/07/2024 10:01 AM EDT Message left for pt to call back for results. Gayatri Pradhan MA [facility]09-29-2024 History of Present illness Narrative* Yaw Singh MD - 01/06/2024 9:08 PM EDT Patient's home health 485 form / care plan for certification period 12/29/2023 to 02/26/2024 reviewed and signed. Relevant medical records were reviewed. Changes were communicated to home health agency documented in this encounterOhiohealth Van Wert Hospital09-29-2024 Telephone encounter Note * Telephone Encounter - Yaw Singh MD - 01/06/2024 9:02 PM EDT Let patient know his iron is low and want him to start taking Slo Fe over the counter one every other day along with Vit C 500 mg with it every other day. I placed an order to get CBC repeated this [facility]09-26-2024 History of Present illness Narrative* Yaw Singh MD - 01/03/2024 11:00 AM EDT Images from the original note were not included. Chief Complaint Patient presents with: Hospital F/U And fci f/u HPI Jacob Landa is a 68 year old male who presents here today for Above Complaints.. Patient was seen in [place] ER 09/21/[address]ici pain. CT [...] wounds on both butt cheeks. Patient has [facility] for wound care but was not referred to a outpatient wound care facility. Emotionally patient feels he is doing ok. Does not feel depressed and not anxious. 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 Was sent home from [facility] 12/28/2023 and has [facility]. He is getting retirement and PHYSICAL THERAPY. Has occasional shortness of [...] vertebra (HCC) 07/12/2023 Coronary artery disease involving [place] coronary artery without angina pectoris Seeing Dr. 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 Given at [facility] ER 09/10/23 POTASSIUM ORAL Take by mouth. [...] MIST) 0.65 % nasal spray Use 1 Byron in the nose as needed for cold/allergysymptoms. [...] which included preparing to see the patient, [id number] patient care, completing clinical documentation, performing a medically appropriate examination, counseling and educating the patient/family/caregiver and ordering medications, tests, or procedures. Yaw Singh MD documented in this encounterOhiohealth Van [facility] Hospital09-25-2024 Telephone encounter Note * Telephone Encounter - Alberta Candelaria MA - 01/02/2024 4:55 PM EDT Patient was D/C from [facility]. Spoke with nurse sadie to see if we could obtain any additional information such as the D/C summary from his stay at there facility and she indicated once the patient is D/C nursing staff doesn't have access to the patient's chart. She suggested calling Dr. Milner who is the director and would have been handling the patients car while there. Dr. Milner [phone] attempted to contact there office to obtain records they were experiencing high call volume was no longer able to stay on hold. Please try and call again tomorrow morning. Alberta Candelaria MA [facility]09-24-2024 Telephone encounter Note* Telephone Encounter - Helena Velez RN - 01/01/2024 3:31 PM EDT Aisha calling back and asking for orders to be faxed to [facility] at [phone]. Faxed as requested. Helena Velez RN [facility]09-24-2024 Miscellaneous Notes* Telephone Encounter - Helena Velez RN - 01/01/2024 3:31 PM EDT Aisha calling back and asking for orders to be faxed to [facility] at [phone]. Faxed as requested. Helena Velez RN * [...] - 01/01/2024 2:48 PM EDT Bryanna from [facility] calling patient had told her this morning at 3 am he had moderate amount of blood on his underwear in rectal area. She said his wound on buttocks, near rectal area is not actively bleeding. She advised to go to ER and patient refused. Nurse said tomorrow is patient dialysis day at [facility], asking if PCP wants to send order for H&H to be done? Pl ease advise documented in this encounterOhiohealth Van [facility]ert Hospital09-24-2024 Telephone encounter Note * Telephone Encounter - Alberta Candelaria MA - 01/01/2024 3:19 PM EDT Left message for Bryanna regarding orders. Please find out where they would like the lab order sent. Alberta Candelaria MA [facility]09-24-2024 Telephone encounter Note* Telephone Encounter - Yaw Singh MD - 01/01/2024 3:06 PM EDT I placed an order but do not know where it needs faxed to. Order printed. [facility]09-24-2024 Telephone encounter Note* Telephone Encounter - Samaria Mac LPN - 01/01/2024 2:48 PM EDT Bryanna from [facility] calling patient had told her this morning at 3 am he had moderate amount of blood on his underwear in rectal area. She said his wound on buttocks, near rectal area is not actively bleeding. She advised to go to ER and patient refused. Nurse said tomorrow is patient dialysis day at [facility], asking if PCP wants to send order for H&H to be done? Pl ease advise [facility]09-23-2024 Telephone encounter Note* Telephone Encounter - Yaw Singh MD - 12/31/2023 4:00 PM EDT Noted. [facility]09-23-2024 Miscellaneous Notes* Telephone Encounter - Yaw Singh [...] 12/31/2023 9:29 AM EDT Hayde calling from [employer] [facility]. Patient got released on 12/28/23 and was seen by on the 12/29/23. Nurse Hayde noted that patient has moisture on skin of buttocks with breakdown. Ordered triad paste to apply 2 x daily and monitoring. Maybe fungal? They will reevaluate at next visit. Orders for: shelter, OT and PT Please review and advise Kaycee Menon LPN documented in this encounterOhiohealth Van [facility]ert Hospital09-23-2024 Telephone encounter Note * Telephone Encounter - Ani Guido LPN [...] can be taken they will do that. [facility]09-23-2024 Telephone encounter Note* Telephone Encounter - Yaw Singh MD - 12/31/2023 12:45 PM EDT Let Hayde know I agree with the wound care plan. See is she can get a would culture for bacteria and fungus? [facility]09-23-2024 Telephone encounter Note* Telephone Encounter - Kaycee Menon LPN - 12/31/2023 9:29 AM EDT Hayde calling from [employer] [facility]. Patient got released on 12/28/23 and was seen by on the 12/29/23. Nurse Hayde noted that patient has moisture on skin of buttocks with breakdown. Ordered triad paste to apply 2 x daily and monitoring. Maybe fungal? They will reevaluate at next visit. Orders for: shelter, OT and PT Please review and advise Kaycee Menon LPN [facility]09-20-2024 Telephone encounter Note* Telephone Encounter - Krystina Quinones LPN - 12/28/2023 2:13 PM EDT Janay advised of Dr Singh's message. She verbalizes understanding. Krystina Quinones LPN [facility]09-20-2024 Miscellaneous Notes* Telephone Encounter - Krystina Quinones LPN - 12/28/2023 2:13 PM EDT Janay advised of Dr Singh's message. She verbalizes understanding. Krystina Quinones LPN * Telephone Encounter - Yaw Singh MD - 12/28/2023 1:47 PM EDT Yes I will follow. * Telephone Encounter - Helena Velez RN - 12/28/2023 11:55 AM EDT Janay from [facility] calls and states that patient was discharged from [place] on 12/27/2023 with the diagnosis of bilateral pleural effusion, LEELA, and Anemia. Janay asking if provider willing to follow patient with orders for shelter, physical therapy, and occupational therapy. custodial doctor did sign orders to abeJanay asking if provider will follow orders? If agreeable please give Luis Alfredo call back . Thank you, Helena Velez RN documented in this encounterOhiohealth Van [facility] Hospital09-20-2024 Telephone encounter Note * Telephone Encounter - Yaw Singh MD - 12/28/2023 1:47 PM EDT Yes I will follow. [facility]09-20-2024 Telephone encounter Note* Telephone Encounter - Helena Velez RN - 12/28/2023 11:55 AM EDT Janay from [facility] calls and states that patient was discharged from [place] on 12/27/2023 with the diagnosis of bilateral pleural effusion, LEELA, and Anemia. Janay asking if provider willing to follow patient with orders for shelter, physical therapy, and occupational therapy. custodial doctor did sign orders to Janay fish asking if provider will follow orders? If agreeable please give Luis Alfredo call back . Thank you, Helena Velez, RN [facility]09-17-2024 History of Present illness Narrative* Krystina Quinones LPN - 12/25/2023 1:45 PM EDT Scan on 12/25/2023 12:52 PM by Danette Houston PA-C: EGD documented in this encounterOhiohealth Van Wert Hospital08-08-2024 History of Present illness Narrative* Krystina Quinones LPN - 11/15/2023 6:54 AM EDT Scan on 11/14/2023 6:00 PM by Danette Houston PA-C Scan on 11/14/2023 3:59 PM by Danette Houston PA-C: Consultation - Nephrology/Renal documented in this encounterOhiohealth Van Wert Hospital07-31-2024 History of Present illness Narrative* Alberta Candelaria MA - 11/07/2023 3:32 PM EDT Scan on 11/06/2023 10:54 AM by Danette Houston PA-C: Miscellaneous Clinical Documents Alberta Candelaria MA documented in this encounterOhiohealth Van Wert Hospital07-29-2024 History of Present illness Narrative* Alberta Candelaria [...] patient? Alberta Candelaria MA documented in this encounterOhiohealth Van Wert Hospital07-29-2024 History of Present illness Narrative* Krystina Quinones LPN - 11/05/2023 8:23 AM EDT Scan on 11/02/2023 5:55 PM by Danette Houston PA-C: EGD Scan on 11/02/2023 5:53 PM by Danette Houston PA-C: Miscellaneous Clinical Documents documented in this encounterOhiohealth Van Wert Hospital07-26-2024 History of Present illness Narrative* Alberta Candelaria MA - 11/02/2023 12:43 PM EDT Scan on 11/01/2023 8:09 PM by Danette Houston PA-C: Consultation - GI hospital admission - Dr. Beck. Alberta Candelaria MA documented in this encounterOhiohealth Van Wert Hospital07-25-2024 Telephone encounter Note * Telephone Encounter - Jennyfer Suresh - 11/01/2023 8:46 AM EDT Unable to reach letter sent out [facility]07-25-2024 Miscellaneous Notes* Telephone Encounter - Jennyfer Suresh [...] PM EDT I know he is in [facility] right now but can let him know the biopsy results were negative for cancer. That is great news. Please set up office visit with me in about 2 months. Richard Jenkins DO documented in this encounterOhiohealth Van [facility]ert Hospital07-24-2024 History of Present illness Narrative* Alberta Candelaria MA - 10/31/2023 5:00 PM EDT Scan on 10/30/2023 3:12 PM by Danette Houston PA-C: Pulmonary Scan on 10/31/2023 9:39 AM by Danette Houston PA-C: Consultation - Emergency Medicine Patient is still admitted 10/31/2023. Alberta Candelaria MA documented in this encounterOhiohealth Van Wert Hospital07-24-2024 Telephone encounter Note * Telephone Encounter - Nuria Sanches - 10/31/2023 4:18 PM EDT LVM for patient to return call to schedule ov appointment Nuria Sanches [facility]07-22-2024 History of Present illness Narrative* Alberta Candelaria MA - 10/29/2023 2:07 PM EDT Scan on 10/28/2023 10:26 AM by Danette Houston PA-C: Discharge Summary Patient was admitted to the hospital on 10/12/2023 and D/C 10/25/2023 for sepsis secondary acute cystitis with bactermia. Bilateral pleural effusions. Patient was placed on Dialysis. Patient was D/C shelter facility - [facility]. Scan on 10/29/2023 6:35 AM by Danette Houston PA-C: Consultation - Emergency Medicine Scan on 10/29/2023 7:27 AM by Danette Houston PA-C: Consultation - Emergency Medicine Patient taken back to [facility] ER on 10/29/2023 for SOB. Patient has volume overload and large left effusion and moderate right effusion. Patient is scheduled to have HD [facility]. Dr. Greenberg following. Dr. Mann for infectious disease. Patient currently Admitted. Alberta Candelaria MA documented in this encounterOhiohealth Van Wert Hospital07-20-2024 Telephone encounter Note * Telephone Encounter - Jennyfer Suresh - 10/27/2023 10:10 AM EDT Called patient and left a vm to return our call Jennyfer Suresh [facility]07-16-2024 Telephone encounter Note* Telephone Encounter - Isa Godoy LPN - 10/23/2023 2:06 PM EDT Message left on voicemail to contact office for biopsy results. Will also need OV with Dr. Jenkins in2 months. Isa Godoy LPN [facility]07-16-2024 Telephone encounter Note* Telephone Encounter - Richard Jenkins DO - 10/23/2023 1:14 PM EDT I know he is in [facility] right now but can let him know the biopsy results were negative for cancer. That is great news. Please set up office visit with me in about 2 months. Richard Jenkins DO [facility]07-02-2024 Telephone encounter Note* Telephone Encounter - Lauren West - 10/09/2023 1:36 PM EDT Patient contacted, scheduled appt with Dr. Davey 3:40 pm on 11-27-2023 Lauren West [facility] Work Phone: 1(120) 365-786507-02-2024 Miscellaneous Notes* Telephone Encounter - Lauren West [...] Nolasco RN * Telephone Encounter - Yaw Signh MD - 10/08/2023 4:02 PM EDT Let [...] help lower his LDL? documented in this encounterOhiohealth Van Wert Hospital07-02-2024 History of Present illness Narrative* Helen Blair [...] for internal providers or letter via the [employer] for external providers. 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 [...] 11/17/2020 Personal history of colonic polyps 12/27/2009 Piece Cutter's nodules 03/30/2023 Will try pamelor Pleural effusion [...] hours as needed for pain. Given at [facility] ER 09/10/23 POTASSIUM ORAL Take by mouth. [...] MIST) 0.65 % nasal spray Use 1 Byron in the nose as needed for cold/allergysymptoms. [...] which included preparing to see the patient, [id number] patient care, completing clinical documentation, obtaining and/or reviewing separately obtained history, performing a medically appropriate examination, counseling and educating the pat ient/family/caregiver and ordering medications, tests, or procedures. SIGNATURE: Helen Blair MD [facility] Department of Pulmonary and Critical Care Medicine DATE: October 09, 2023 documented in this encounterOhiohealth Van [facility]07-01-2024 Telephone encounter Note * Telephone Encounter - Alberta Candelaria MA - 10/08/2023 4:34 PM EDT Please assist patient to schedule with ENDO. Alberta Candelaria MA [facility]07-01-[facility]24 Telephone encounter Note* Telephone Encounter - Yaw Singh MD - 10/08/2023 4:24 PM EDT Consult to Endo placed. [facility]07-01-2024 Telephone encounter Note* Telephone Encounter - Helena [...] place order for this. Helena Velez RN [facility]07-01-2024 Telephone encounter Note* Telephone Encounter - Christiano Nolasco RN - 10/08/2023 4:08 PM EDT Called and left a voicemail for the Patient to call back and ask for a nurse to receive the providers message. Christiano Nolasco RN [facility]07-01-2024 Telephone encounter Note* Telephone Encounter - Yaw [...] injectable agents to help lower his LDL? [facility] Telephone encounter Note* Telephone Encounter - Martin Siddiqi RN - 10/08/2023 2:42 PM EDT Instructed pt he will be able to drive himself home after seeing Dr Blair; understanding acknowledged Thank you. Martin Siddiqi RN [facility]07-01-2024 Miscellaneous Notes* Telephone Encounter - Martin Siddiqi RN - 10/08/2023 2:42 PM EDT Instructed pt he will be able to drive himself home after seeing Dr Blair; understanding acknowledged Thank you. 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 Call back number above has been verified FOR EMERGENCY CALLS: Shortness of breath, trouble breathing, Oxygen level less than 90%, requiring immediate attention or less than 1 hour response time- route HIGH PRIORITY to nursing Please Route Completed Encounters to nursing documented in this encounterOhiohealth Van Wert Hospital07-01-2024 Telephone encounter Note * Telephone Encounter - Yara AltamiranoFrances vilchis - 10/08/2023 2:34 PM EDT curr Patient Caller Name: Jacob Landa Call Back Number [phone] Reason for Call: Other question Additional Information: patient is coming in for first visit with Pulmonology and requesting a callto advise if 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 Call back number above has been verified FOR EMERGENCY CALLS: Shortness of breath, trouble breathing, Oxygen level less than 90%, requiring immediate attention or less than 1 hour response time- route HIGH PRIORITY to nursing Please Route Completed Encounters to nursing [facility]-28[facility] Instructions* Patient Instructions* Yaw Singh MD - 10/05/2023 10:46 AM EDT Please do the blood work and urine tests on or after 10/19/2023 Please get labs and urine test done on or after 03/07/2024 prior to your next visit. documented in this encounterOhiohealth Van Wert Hospital06-28-2024 History of Present illness Narrative* Yaw Singh MD - 10/05/2023 9:51 AM EDT Chief Complaint Patient presents with: F/U 6 months HPI Jacob Landa is a 68 year old male who presents here today for 6 month follow up. Patient indicated that he was in the [facility] ER 09/11/2023 found a kidney stone. They [...] dilated Aorta. This information was faxed to [facility] but he has not received [...] of right wrist Coronary artery disease involving [place] coronary artery without angina pectoris Seeing Dr. 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 Given at [facility] ER 09/10/23 HYDROcodone-acetaminophen 2.5-325 mg tab Take 1 tablet by mouth every 6 hours as needed for pain. Given at [facility] ER 09/10/23 POTASSIUM ORAL Take by mouth. nystatin (MYCOSTATIN) cream Apply to affected area two times a day. ondansetron (ZOFRAN) 8 mg tablet Take 1 tablet by mouth every 8 hours as needed for nausea/vomiting. sodium chloride (SALINE MIST) 0.65 % nasal spray Use 1 Byron in the nose as needed for cold/allergysymptoms. 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 If he exerts himself he will get [...] mg QD 4. Coronary artery disease involving [place] coronary artery of [place] heart without angina pectoris- ICD9: 414.01, ICD10: [...] prior Yaw Singh MD documented in this encounterOhiohealth Van Wert Hospital06-14-2024 Telephone encounter Note * Telephone Encounter - Hayde Summers LPN - 09/21/2023 12:30 PM EDT Spoke with pt and information listed below given. Pt verbalizes understanding. Hayde Summers LPN [facility]06-14-2024 Miscellaneous Notes* Telephone Encounter - Hayde Summers LPN - 09/21/2023 12:30 PM EDT Spoke with pt and information listed below given. Pt verbalizes understanding. Hayde Summers LPN * Telephone Encounter - Krystina Quinones LPN - 09/21/2023 11:43 AM EDT Left message for pt to contact office. Please see message below. Office did fax a copy of Echo to [facility]. Krystina Quinones LPN * Telephone [...] up with cardio scheduled? documented in this encounterOhiohealth Van Wert Hospital06-14-2024 Telephone encounter Note * Telephone Encounter - Krystina Quinones LPN - 09/21/2023 11:43 AM EDT Left message for pt to contact office. Please see message below. Office did fax a copy of Echo to [facility]. Krystina Quinones LPN [facility]06-14-[facility]24 Telephone encounter Note* Telephone Encounter - Usha Mcgovern PA-C - 09/21/2023 10:51 AM EDT Let patient know that US of heart shows tht his shows a dilated aorta. I don't see this noted on his previous echo from 2020. This will need to be monitored by cardiology. We will send them copy of ECHO. When is his follow up with cardio scheduled? [facility] Telephone encounter Note* Telephone Encounter - Sadie Mcgraw - 09/19/2023 5:25 PM EDT Spoke to pt and scheduled biopsy for 09/25/23. [facility]-12[facility] Miscellaneous Notes* Telephone Encounter - Sadie Mcgraw [...] for this procedure: low risk. Reference from [facility] Credit Risk Analyst: [email or web address] STAFF SIGNATURE: Renetta Davis MD DATE: September [...] (LASIX ORAL) Take by mouth. Given at [facility] ER 09/10/23 HYDROcodone-acetaminophen 2.5-325 mg tab Take 1 tablet by mouth every 6 hours as needed for pain. Given at [facility] ER 09/10/23 POTASSIUM ORAL Take by mouth. [...] MIST) 0.65 % nasal spray Use 1 Byron in the nose as needed for cold/allergysymptoms. [...] am REQUESTING STAFF: Dr. Richard Jenkins PHONE/PAGER: [phone] SPECIFICS OF THE REQUEST: (Please be as [...] OF THE REQUEST: MRI Date: 09/10/23 IMAGING: [facility] documented in this encounterOhiohealth Van [facility] Hospital06-10-2024 Telephone encounter Note * Telephone Encounter - [...] for this procedure: low risk. Reference from [facility] Credit Risk Analyst: https://[email or web address]/documents/?[email or web address] STAFF SIGNATURE: Renetta Davis MD DATE: September 17, 2023 TIME: 5:00 PM [facility] Work Phone: 1(407) 469-913906-10-2024 Telephone encounter Note* Telephone Encounter - Carla Izaguirre OCCA - 09/17/2023 2:50 PM EDT TC to patient who is informed of below. Patient is agreeable to seeing Pulm. Please contact patient to assist in scheduling. Thank you. PERRY Rivera [facility]06-10-2024 Miscellaneous Notes* Telephone Encounter - Carla Izaguirre [...] well. Usha Mcgovern PA-C documented in this encounterOhiohealth Van Wert Hospital06-10-2024 Telephone encounter Note * Telephone Encounter - [...] and Echo as well. Usha Mcgovern PA-C [facility]-10[facility] Telephone encounter Note* Telephone Encounter - Hayley Pickens LPN - 09/17/2023 10:42 AM EDT BX. COORDINATOR INFORMATION LAB RESULTS: PT INR (no units) Date Value 08/06/2020 1.0 APTT (sec) Date Value 08/06/2020 25.5 Platelet Count (k/uL) Date Value 02/13/2023 158 06/02/2021 159 Current Outpatient Medications Medication Sig furosemide (LASIX ORAL) Take by mouth. Given at [facility] ER 09/10/23 HYDROcodone-acetaminophen 2.5-325 mg tab Take 1 tablet by mouth every 6 hours as needed for pain. Given at [facility] ER 09/10/23 POTASSIUM ORAL Take by mouth. [...] MIST) 0.65 % nasal spray Use 1 Byron in the nose as needed for cold/allergysymptoms. [...] DATE: September 17, 2023 TIME: 10:42 AM [facility] Miscellaneous Notes* Telephone Encounter - Helena Urrutia - 09/17/2023 9:29 AM EDT Via Zoomingo, request has been sent to [facility]. This PSS also called [facility] and they will triage and call the patient. Patient is aware to expect a call from [facility] to schedule. Helena Urrutia * Telephone Encounter - Isa Godoy LPN - 09/17/2023 8:44 AM EDT Spoke with pt. Regarding results of recent <RI and the suspicion of of possible cancer. Dr. Jenkins would like to have him scheduled at [facility] or [facility] for imaging guided biopsy of the T10 [...] would like to have him scheduled at [facility] or [facility] for imaging guided biopsy of the T10 vertebrae. Richard Jenkins DO documented in this encounterOhiohealth Van [facility]06-10-2024 Telephone encounter Note * Telephone Encounter - Helena Urrutia - 09/17/2023 9:29 AM EDT Via Zoomingo, request has been sent to [facility]. This PSS also called [facility] and they will triage and call the patient. Patient is aware to expect a call from [facility] to schedule. Helena Urrutia [facility]06-10-2024 Telephone encounter Note* Telephone Encounter - Jada Hernández - 09/17/2023 9:06 AM EDTSummary: Bone Biopsy RADIOLOGY CALL CENTER INTAKE DATE: 09/17/23 TIME: 9:10 am REQUESTING STAFF: Dr. Richard Jenkins PHONE/PAGER: [phone] SPECIFICS OF THE REQUEST: (Please be as [...] OF THE REQUEST: MRI Date: 09/10/23 IMAGING: [facility]06-10-[facility] Telephone encounter Note* Telephone Encounter - Isa Godoy LPN - 09/17/2023 8:44 AM EDT Spoke with pt. Regarding results of recent Pt. Voiced understanding. PSS please reach out to get pt. Scheduled. Isa Godoy LPN [facility]06-07-2024 Telephone encounter Note* Telephone Encounter - Richard Jenkins DO - 09/14/2023 6:12 PM EDT When I last saw him, his back was feeling much better from the injury he sustained last fall. However repeat MRI is more suspicious for possible cancer. I would like to have him scheduled at [facility] or [facility] for imaging guided biopsy of the T10 vertebrae. Richard Jenkins DO [facility]06-07-20[facility] Telephone encounter Note* Telephone Encounter - Alberta Candelaria MA - 09/14/2023 1:19 PM EDT Patient notified and voiced understanding. Alberta Candelaria MA [facility]06-07-2024 Miscellaneous Notes* Telephone Encounter - Alberta Candelaria [...] yet. Usha Mcgovern PA-C documented in this encounterOhiohealth Van Wert Hospital06-07-2024 Telephone encounter Note * Telephone Encounter - [...] on chest xray yet. Usha Mcgovern PA-C [facility]06-06-2024 Telephone encounter Note* Telephone Encounter - Usha Mcgovern PA-C - 09/13/2023 8:13 AM EDT Noted. [facility] Miscellaneous Notes* Telephone Encounter - Usha Mcgovern [...] see Ludin. * Telephone Encounter - Alberta Candelaria MA - 09/12/2023 4:15 PM EDT [...] abdomen. Alberta Candelaria MA documented in this encounterOhiohealth Van Wert Hospital06-06-2024 History of Present illness Narrative* Alix Hong, RT(R) - 09/13/2023 8:00 AM EDT [...] PATIENT PRESENTS WITH AN IMPLANTABLE OR ATTACHED DIMMER BOARD OPERATOR: No RADIOLOGY DEPARTMENT: General X-ray: Exam(s) Completed: Chest X-Ray PERIPHERAL IV DATA: Not applicable SIGNED BY: RT Jake(Bea) September 13, 2023 8:06 AM documented in this encounterOhiohealth Van Wert Hospital06-06-2024 Instructions* Patient Instructions* Usha Mcgovern PA-C - 09/13/2023 7:26 AM EDT Please contact cardiology to make sure they are aware of recent diagnosis of pleural effusions. documented in this encounterOhiohealth Van [facility] Hospital06-06-2024 History of Present illness Narrative* Usha Mcgovern PA-C - 09/13/2023 7:20 AM EDT Chief Complaint Patient presents with: ER F/U: [facility] ER 09/10/23 HPI Jacob Landa is a [...] of right wrist Coronary artery disease involving [place] coronary artery without angina pectoris Seeing Dr. 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 Given at [facility] ER 09/10/23 HYDROcodone-acetaminophen 2.5-325 mg tab Take 1 tablet by mouth every 6 hours as needed for pain. Given at [facility] ER 09/10/23 POTASSIUM ORAL Take by mouth. [...] MIST) 0.65 % nasal spray Use 1 Byron in the nose as needed for cold/allergysymptoms. [...] METABOLIC PANEL 4. Coronary artery disease involving [place] coronary artery of [place] heart without angina pectoris- ICD9: 414.01, ICD10: [...] exercise Usha Mcgovern PA-C documented in this encounterOhiohealth Van W[facility] Hospital06-05-2024 Telephone encounter Note * Telephone Encounter - Yaw Singh MD - 09/12/2023 5:04 PM EDT ER provider placed on lasix and potassium. Told him to f/u with PCP and cardio (he sees Ludin) Would at least get pulse ox and if less then 90% send him to ER. Check AP/lat chest x-ray, BNP, BMP, Echo Advise him he needs to see [facility]in. [facility] Telephone encounter Note* Telephone Encounter - Alberta Candelaria MA - 09/12/2023 4:15 PM EDT [...] in left lower abdomen. Alberta Candelaria MA [facility]06-03-2024 History of Present illness Narrative* Gloria Sinclair, [...] PATIENT PRESENTS WITH AN IMPLANTABLE OR ATTACHED DIMMER BOARD OPERATOR: No ALLERGIES: Reviewed and unchanged CONTRAST ALLERGY: NO. EXAM: MRI - CONTRAST TYPE: GROUP II PERIPHERAL IV DATA: Ambulatory: A peripheral IV was started in the Right antecubital site with a Angio cath: 22 gauge. RADIOLOGY DEPARTMENT: MR; Exam(s) Completed: Spine: Thoracic spine SIGNATURE: RT Arlen(Bea) PATIENT NAME: Jacob Landa DATE: September 10, 2023 TIME: 9:05 AM documented in this encounterOhiohealth Van Wert Hospital05-30-2024 History of Present illness Narrative* Tye Flores [...] Patient to be seen for Therapeutic exercise (99143), Neuromuscular re-education (03753), Manual therapy (74993), Therapeutic activities (65373), Self-jail management (09792), Patient/Family/Caregiver Education PLAN FOR NEXT VISIT: Core [...] 1753 Tye Flores PT documented in this encounterOhiohealth Van Wert Hospital05-05-2024 Telephone encounter Note * Telephone Encounter - Susan Nation - 08/12/2023 12:05 PM EDT Scheduled MRI with patient [facility] Work Phone: [phone] 666-281505-05-2024 Miscellaneous Notes* Telephone Encounter - Susan Nation - 08/12/2023 12:05 PM EDT Scheduled MRI with patient * Telephone Encounter - Helena Urrutia - 08/10/2023 10:39 AM EDT Check out comments: MRI Thoracic spine when able, OV based on results of MRI documented in this encounterOhiohealth Van Wert Hospital05-03-2024 Telephone encounter Note * Telephone Encounter - Helena Urrutia - 08/10/2023 10:39 AM EDT Check out comments: MRI Thoracic spine when able, OV based on results of MRI [facility] History of Present illness Narrative* Richard Jenkins [...] abdomen: Dedicated CT abdomen pelvis dictated separately. Feed Crusher (topogram) images: No additional findings. CT A/P [...] chest CT performed will be reported separately. Feed Crusher (topogram) images: No additional findings. EGD/EUS 04/26/2020: [...] carboplatin and paclitaxel. 05/24 through 06/23/2020. Underwent [place] esophagectomy on 08/09/2020. Pathology: 1. 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 Pain was most intense in March. MRI and PET reviewed by several radiologists. Consensus was no evidence of cancer and biopsy not recommended. He was seen at the spine center in [place]. Currently-- Back pain significantly improved after passing kidney stones. Has days without back pain. Still driving for the [employer]. 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 No petechiae. NEUROLOGIC: smoke room operator II-XII are grossly intact. No focal motor [...] which included preparing to see the patient, [id number] patient care, completing clinical documentation, obtaining and/or reviewing separately obtained history, performing a medically appropriate examination, counseling and educating the pat ient/family/caregiver, ordering medications, tests, or procedures, communicating with other HCPs (not separately reported), and communicating results to the patient/family/caregiver. Richard Jenkins DO documented in this encounterOhiohealth Van Wert Hospital04-26-2024 History of Present illness Narrative* Beatrice Zuleta [...] PATIENT PRESENTS WITH AN IMPLANTABLE OR ATTACHED DIMMER BOARD OPERATOR: No ALLERGIES: Reviewed and unchanged CONTRAST ALLERGY: [...] 2023 TIME: 9:44 AM documented in this encounterOhiohealth Van Wert Hospital04-22-2024 History of Present illness Narrative* Tye Flores, [...] Planned: 4 Planned Treatment Interventions: Therapeutic exercise (03771), Neuromuscular re- education (28641), Manual therapy (88301), Therapeutic activities (53739), Self- jail management (38179), Patient/Family/Caregiver Education PLAN FOR NEXT VISIT: Core [...] 1613 Tye Flores, PT documented in this encounterOhiohealth Van Wert Hospital04-11-2024 Miscellaneous Notes* Telephone Encounter - Helena Urrutia [...] appt with spine provider on 07/11 in [place]. He called asking if Dr. Jenkins has been able to review. documented in this encounterOhiohealth Van Wert Hospital04-04-2024 History of Present illness Narrative* Jesus Manuel Resendiz PA-C - 07/12/2023 10:34 AM EDT Images from the original note were not included. [facility] [address] [address] 07/12/2023 ASSESSMENT AND PLAN: Assessment : Encounter [...] today with this patient visit. This includes wpkp-rn-ibiw time, review of chart records regarding conservative care history, spine- pertinent imaging, and communication/care coordination with referring provider, problem-specific history-taking and counseling/education regarding treatment options. cc: Richard Jenkins [address] [facility] [id number] Results of consultation to be transmitted via electronic medical record for those providers who practice within [facility] or with access to [facility] via MD Connect, or via letter. 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 [...] of right wrist Coronary artery disease involving [place] coronary artery without angina pectoris Seeing Dr. 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 Usha Mcgovern PA-C documented in this encounterOhiohealth Van Wert Hospital03-22-2024 Miscellaneous Notes* Telephone Encounter - Yaw Singh [...] function labs were ok. documented in this encounterOhiohealth Van Wert Hospital03-21-2024 History of Present illness Narrative* Pita Palumbo, [...] PATIENT PRESENTS WITH AN IMPLANTABLE OR ATTACHED DIMMER BOARD OPERATOR: No CREATININE: Creatinine Date Value Ref Range [...] 11:35 PATIENT DISCHARGED TO: Ambulatory patient, left [place] department area. A Diagnostic radioactive procedure has taken place, with no further precautions necessary other than routine body substance precautions. More information regarding radiation safety can be found usingthis link: [email or web address] SIGNATURE: RT Chan(Bea) PATIENT NAME: Jacob Landa DATE: June 28, 2023 TIME: 13:25 PM PAGER/CONTACT #: documented in this encounterOhiohealth Van Wert Hospital03-21-2024 History of Present illness Narrative* Rosa Arteaga [...] PATIENT PRESENTS WITH AN IMPLANTABLE OR ATTACHED DIMMER BOARD OPERATOR: No RADIOLOGY DEPARTMENT: Ultrasound PERIPHERAL IV DATA: Not applicable SIGNED BY: Rosa Arteaga RDMS June 28, 2023 12:40 PM documented in this encounterOhiohealth Van Wert Hospital03-14-2024 Miscellaneous Notes* Telephone Encounter - Yaw Singh [...] Cardiology has been prescribing the medication. Alberta Candelarai MA * Telephone Encounter - Yaw Singh [...] 10 mg a day. 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 [...] attention. Usha Mcgovern PA-C documented in this encounterOhiohealth Van Wert Hospital03-11-2024 Miscellaneous Notes* Telephone Encounter - Sabrina Hernandez - 06/18/2023 1:48 PM EDT Called patient and scheduled him for first available in [place]. Sabrina Crouch * Telephone Encounter - Isa Godoy LPN - 06/18/2023 12:30 PM EDT Spoke with pt. Informed no evidence of cancer in the biopsies. So, all the workup so far has not shown any clear evidence of recurrent cancer which is great. Dr. Jenkins would like to make a referral to the spine center at [place] for him. Pt. Voiced understanding. Informed he has appt. Tomorrow with Usha Mcgovern because the "storm horses "are worse ,instructed to keep that appt. To help him get some relief, but our PSS will still make referral to spine center in [place]. That is fine with pt. Isa Godoy LPN * Telephone Encounter - Richard Jenkins DO - 06/18/2023 12:20 PM EDT There was no evidence of cancer in the biopsies. So, all the workup so far has not shown any clear evidence of recurrent cancer which is great. I would like to make a referral to the spine center at [place] for him. Richard Jenkins DO * Telephone [...] Please advise. Helena Urrutia documented in this encounterOhiohealth Van Wert Hospital02-27-2024 NoteHNO ID: [id number] Author: KRISTINE HARRIS APRN.CARPET CUTTER Service: Nursing Author Type: Nurse Retail Advertising Account Executive Type: Anesthesia Procedure Notes Filed: 06/05/2023 14:10 Note Text: ANESTHESIOLOGY PROCEDURE NOTE Airway General Information Procedure Start Time/Medication Administration: 06/05/2023 2:03 PM Patient location during procedure: OR Timeout Performed Pre-procedure: timeout performed Consent Obtained: Yes Patient identity confirmed: arm band and patient sedated or unresponsive Staffing Anesthesiologist: Cong Chew MD CARPET CUTTER: Kristine Harris APRN.CARPET CUTTER Performed by: CARPET CUTTER Indications and Patient Condition Indications for airway [...] no Airway not difficult SIGNATURE: Kristine Harris APRN.CARPET CUTTER PATIENT NAME: Jacob Landa DATE: June 05, 2023 TIME: 2:10 PM CSN: [id number] History and physical note* Aruna Mendez APRN.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 - 06/05/2023 1:00 PM EST HISTORY AND [...] Esophageal Adenocarcinoma (Hcc) Coronary Artery Disease Involving [place] Coronary Artery Without Angina Pectoris [place] (Actinic Keratosis) Medicare Annual Wellness Visit, Subsequent Pleural Effusion Advance Directive Discussed With Patient Medication Management Prostate Disorder Decreased Sexual Desire Piece Cutter's Nodules Primary Insomnia Pre-Op Exam Subjective CHIEF [...] of right wrist Coronary artery disease involving [place] coronary artery without angina pectoris Seeing Dr. 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 [...] no history of chest pain, palpitations, CHF, VT, cardiac surgery or stents GI: No history [...] Plan EGD today Coronary artery disease involving [place] coronary artery without angina pectoris Overview Seeing [...] which included preparing to see the patient, [id number] patient care, completing clinical documentation, and performing a medically appropriate examination. Instructions Given to Patient: Patient given verbal preop instructions and voices comprehension and compliance. SIGNATURE: Aruna Mendez APRN.CNP PATIENT NAME: Jacob Landa DATE: June 05, 2023 TIME: 12:09 PM PAGER/CONTACT #: documented in this encounterOhiohealth Van Wert Hospital02-20-2024 Miscellaneous Notes* Telephone Encounter - Susan Nation [...] Thank you. Susan Jones. documented in this encounterOhiohealth Van Wert Hospital01-17-2024 NoteHNO ID: [id number] Author: JURGEN BOCANEGRA MD Service: ? Author Type: Physician Type: Progress Notes Filed: 04/26/2023 16:22 Note Text: Jurgen Bocanegra M.D. Surgical Oncology [address] [facility], [address] [place] [id number] SUBJECTIVE HPI Jacob Landa is a 68 [...] of right wrist Coronary artery disease involving [place] coronary artery without angina pectoris Seeing Dr. 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 15.0 mCi F18 FDG. No other medications given.. ADMINISTRATION TIME: 1123 PATIENT DISCHARGED TO: Ambulatory patient, left GA department area. A Diagnostic radioactive procedure has taken place, with no further precautions necessary other than routine body substance precautions. More information regarding radiation safety can be found using this link: [email or web address] SIGNATURE: RT Shanice(R) PATIENT NAME: Jacob Landa DATE: April 10, 2023 TIME: 11:52 AM PAGER/CONTACT [phone] Miscellaneous Notes* Telephone Encounter - Ruthy Lomeli [...] scan. Richard Jenkins DO documented in this encounterOhiohealth Van Wert Hospital11-21-2023 History of Present illness Narrative* Jessica Olvera APRN.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 - 02/27/2023 3:07 PM EST This note was created using NoteWriter. Subjective Jacob Landa is a 67 year old male. 67 year old male with PMH CABG, HTN, hyperlipidemia, asthma and GERD presents for illness. 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 Denies dyspnea Denies abdominal pain. Denies N/V/D Utilized home OTC The history is provided by the patient. No district court bailiff was used. Cough This is a new [...] of right wrist Coronary artery disease involving [place] coronary artery without angina pectoris Seeing Dr. [...] COLONOSCOPY W/BIOPSY SINGLE/MULTIPLE 02/22/2007 Diminutive polyp distal [id number]-[id number] ECHO 01/08/2021 EGD 04/15/2020 HEART CATHETERIZATION 12/2018 [...] MIST) 0.65 % nasal spray Use 1 Byron in the nose as needed for cold/allergysymptoms. [...] if symptoms persist or worsen. Jessica Olvera APRN.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 documented in this encounterOhiohealth Van Wert Hospital11-15-2023 Miscellaneous Notes* Telephone Encounter - Jyoti Fajardo [...] MRI. Richard Jenkins DO documented in this encounterOhiohealth Van Wert Hospital11-13-2023 History of Present illness Narrative* Yaw Singh MD - 02/19/2023 8:54 PM EST Patient had to reschedule. documented in this encounterOhiohealth Van Wert Hospital11-07-2023 History of Present illness Narrative* Beatrice Zuleta [...] 2023 TIME: 10:20 AM documented in this encounterOhiohealth Van Wert Hospital08-16-2023 History of Present illness Narrative* Alberta Candelaria MA - 11/22/2022 1:32 PM EDT Scan on 11/20/2022 9:06 AM by Provider, OPAL Samaniego: Consultation - Cardiology Alberta Candelaria MA documented in this encounterOhiohealth Van Wert Hospital05-16-2023 History of Present illness Narrative* Richard Jenkins [...] abdomen: Dedicated CT abdomen pelvis dictated separately. Feed Crusher (topogram) images: No additional findings. CT A/P [...] chest CT performed will be reported separately. Feed Crusher (topogram) images: No additional findings. EGD/EUS 04/26/2020: [...] No jaundice or rash. No petechiae. NEUROLOGIC: smoke room operator II-XII are grossly intact. No focal motor [...] Lymph 1.00 - 4.00 k/uL 0.61 (L) Greer% % 11.0 Abs Greer <0.87 k/uL 0.47 Eosin% % 3.5 Abs [...] months. -Follow-up with his PCP and his motion picture critic for other healthcare needs including management of [...] which included preparing to see the patient, [id number] patient care, completing clinical documentation, obtaining and/or reviewing separately obtained history, performing a medically appropriate examination, ordering medications, tests, or procedures, and communicating results to the patient/family/caregiver. Richard Jenkins DO documented in this encounterOhiohealth Van Wert Hospital05-03-2023 History of Present illness Narrative* Usha Mcgovern [...] of right wrist Coronary artery disease involving [place] coronary artery without angina pectoris Seeing Dr. [...] COLONOSCOPY W/BIOPSY SINGLE/MULTIPLE 02/22/2007 Diminutive polyp distal izzybwh-[id number] ECHO 01/08/2021 EGD 04/15/2020 HEART CATHETERIZATION 12/2018 [...] <AGE 11 Tonsillectomy TOT/SUB ESOPHAGECTOMY W/THORACOT 08/09/2020 [place] esophagectomy, jejunostomy tube placement Family History [...] MIST) 0.65 % nasal spray Use 1 Byron in the nose as needed for cold/allergysymptoms. [...] with specialist 5. Coronary artery disease involving [place] coronary artery of [place] heart without angina pectoris- ICD9: 414.01, ICD10: [...] months. Usha Mcgovern PA-C documented in this encounterOhiohealth Van Wert Hospital04-26-2023 History of Present illness Narrative* Queta Hunt APRN.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 - 08/02/2022 1:55 PM EDT Part of this note was copied from previous note, all content has been individually reviewed, updated as necessary, and thoroughly reviewed. [facility] - OUTPATIENT THORACIC SURGERY CLINIC NOTE PT NAME: Jacob Landa [facility] NO: [id number] THORACIC SURGEON: Renetta Radford M.D. DATE OF [...] mucosa and intestinal metaplasia, negative for carcinoma. [facility] SYNOPTIC REPORT OF BERRY PATHOLOGIC FINDINGS [...] 67 year old year old male s/p [place] esophagectomy, Pyloromyotomy, Jejunostomy tubeplacement with Dr Renetta Radford on 08/09/2020. Pathology showed ypT3N0 adenocarcinoma distal esophagus. JARAD. PLAN: - Return for EGD in 1 year - Oncology follow up, Dr. Jenkins - Radiation/Oncology, Dr.Lee Queta Gleason APRN.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 documented in this encounterOhiohealth Van Wert Hospital04-26-2023 Nurse Note* Nuria Blandon RN - 08/02/2022 [...] RN In Department: GASTROENTEROLOGY documented in this encounterOhiohealth Van Wert Hospital03-20-2023 Miscellaneous Notes* Telephone Encounter - Alberta Candelaria MA - 06/26/2022 2:48 PM EDT Patient notified and voiced understanding. Patient given Dr. Verdugo's number Alberta Candelaria MA * Telephone Encounter - Yaw Singh MD - 06/26/2022 1:25 PM EDT Patient should make f/u appt with DR. Verdugo. * Telephone Encounter - Montserrat Varner RN - 06/26/2022 12:32 PM EDT Patient calling to say he was in [facility] ER on Friday 06/23 for a kidney stone which he thinks he passed on Sunday afternoon because he had blood in his urine. He no longer has blood in his urine. He says he does not notice any left sided flank pain because he is taking pain medication [place] and Ibuprofen as needed. He was given Dr. Danielle's name for follow up if symptoms don't resolve. He is asking if he should follow up with him or should he schedule ER follow up with PCP? Montserrat Varner RN documented in this encounterOhiohealth Van Wert Hospital03-20-2023 History of Present illness Narrative* Sia Triana LPN - 06/26/2022 12:24 PM EDT Scan on 06/23/2022 9:54 PM by External Provider: Consultation - Emergency Medicine Scan on 06/23/2022 6:51 PM by External Provider: CT Scan documented in this encounterOhiohealth Van Wert Hospital03-10-2023 Miscellaneous Notes* Telephone Encounter - Kelli Whitehead - 06/16/2022 9:06 AM EST Reason for call: Mr. Landa would like to schedule a f/u appointment with Queta Gleason. Home and cell number [phone] Diagnosis Malignant neoplasm of lower third of esophagus (HCC) Kelli Medina documented in this encounterOhiohealth Van Wert Hospital03-03-2023 History of Present illness Narrative* Alix Hong [...] 09, 2022 3:02 PM documented in this encounterOhiohealth Van Wert Hospital03-03-2023 History of Present illness Narrative* Yaw Smith APRN.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 - 06/09/2022 2:49 PM EST Images from [...] of right wrist Coronary artery disease involving [place] coronary artery without angina pectoris Seeing Dr. [...] COLONOSCOPY W/BIOPSY SINGLE/MULTIPLE 02/22/2007 Diminutive polyp distal egcpvmp-21-3375 ECHO 01/08/2021 EGD 04/15/2020 HEART CATHETERIZATION 12/2018 [...] <AGE 11 Tonsillectomy TOT/SUB ESOPHAGECTOMY W/THORACOT 08/09/2020 [place] esophagectomy, jejunostomy tube placement ALLERGIES Environmental Allergies [Other] MEDICATIONS benzonatate (TESSALON PERLE) 100 mg capsule^Take 2 capsules by mouth three times daily as needed.^Disp: 40 capsule^Rfl: 0 guaiFENesin (MUCINEX) 600 mg 12 hr tablet^Take 2 tablets by mouth twice daily.^Disp: 24 tablet^Rfl:0 sodium chloride (SALINE MIST) 0.65 % nasal spray^Use 1 Byron in the nose as needed for cold/allergysymptoms.^Disp: [...] of care. This note was generated using Scoutzie software. It may contain errors in wording, punctuation, or spelling. Yaw Smith APRN.MOHINI documented in this encounterOhiohealth Van Wert Hospital02-20-2023 Miscellaneous Notes* Telephone Encounter - Helena Urrutia [...] you. Mari Akhtar APRN.MOHINI documented in this encounterOhiohealth Van Wert Hospital02-16-2023 Nurse Note* Isa Valdez LPN - 05/25/2022 9:07 AM EST Est. Pt, 3 month f/u, discuss recent CT and labs. Pt. Had been on Lasix, last September or October ran out, never had refills. Dr. Jenkins OV notes in September 2021 informed to continue Lasix 20 mg daily. Nothing mentioned in October notes Isa Valdez LPN documented in this encounterOhiohealth Van Wert Hospital02-16-2023 History of Present illness Narrative* Mari Akhtar [...] abdomen: Dedicated CT abdomen pelvis dictated separately. Feed Crusher (topogram) images: No additional findings. CT A/P [...] chest CT performed will be reported separately. Feed Crusher (topogram) images: No additional findings. EGD/EUS 04/26/2020: [...] carboplatin and paclitaxel. 05/24 through 06/23/2020. Underwent [place] esophagectomy on 08/09/2020. Pathology: 1. Esophagus [...] k/uL 0.54 (L) 0.51 (L) 0.70 (L) Greer% % 8.0 7.3 8.3 Abs Greer <0.87 k/uL 0.32 0.35 0.48 Eosin% % [...] months. -Follow-up with his PCP and his motion picture critic for other healthcare needs including management of [...] visit. Mari Akhtar APRN.MOHINI documented in this encounterOhiohealth Van Wert Hospital02-13-2023 History of Present illness Narrative* Helen Khanueger [...] 2022 TIME: 3:54 PM documented in this encounterOhiohealth Van Wert Hospital01-12-2023 Miscellaneous Notes* Telephone Encounter - Socrates Leonard [...] Urine - Blood In-ADULT- documented in this encounterOhiohealth Van Wert Hospital12-12-2022 Miscellaneous Notes* Telephone Encounter - Alberta Candelaria MA - 03/20/2022 10:36 AM EST Patient notified and voiced understanding. Alberta Candelaria MA * Telephone Encounter - Yaw Singh MD - 03/19/2022 2:06 PM EST Let patient know his testosterone level was pretty good at 455. I do not feel replacement is needed. documented in this encounterOhiohealth Van Wert Hospital12-10-2022 Miscellaneous Notes* Telephone Encounter - Susan Sanchez - 03/18/2022 10:00 AM EST Patient given results and verbalized understanding of instructions given. Susan Sanchez * Telephone Encounter - Susan Sanchez - 03/18/2022 9:59 AM EST ----- Message from Edith Dickson APRN.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 sent at 03/18/2022 9:07 AM EST ----- Please advise patient he tested negative for COVID and Influenza. documented in this encounterOhiohealth Van Wert Hospital12-09-2022 History of Present illness Narrative* Dana Humphries [...] of right wrist Coronary artery disease involving [place] coronary artery without angina pectoris Seeing Dr. [...] 08/14/2020 History: 65 year old male s/p [place] esophagectomy, Pyloromyotomy, Jejunostomy tube placement for [...] COLONOSCOPY W/BIOPSY SINGLE/MULTIPLE 02/22/2007 Diminutive polyp distal [id number]-[id number] ECHO 01/08/2021 EGD 04/15/2020 HEART CATHETERIZATION 12/2018 [...] <AGE 11 Tonsillectomy TOT/SUB ESOPHAGECTOMY W/THORACOT 08/09/2020 [place] esophagectomy, jejunostomy tube placement ALLERGIES Environmental [...] (SALINE MIST) 0.65 % nasal spray^Use 1 Byron in the nose as needed for cold/allergysymptoms.^Disp: [...] worsened Dana Humphries APRN.MOHINI documented in this encounterOhiohealth Van Wert Hospital11-16-2022 History of Present illness Narrative* Mari Akhtar [...] abdomen: Dedicated CT abdomen pelvis dictated separately. Feed Crusher (topogram) images: No additional findings. CT A/P [...] chest CT performed will be reported separately. Feed Crusher (topogram) images: No additional findings. EGD/EUS 04/26/2020: [...] carboplatin and paclitaxel. 05/24 through 06/23/2020. Underwent [place] esophagectomy on 08/09/2020. Pathology: 1. Esophagus [...] (L) 0.54 (L) 0.54 (L) 0.51 (L) Greer% % 7.9 11.2 8.0 7.3 Abs Greer <0.87 k/uL 0.40 0.44 0.32 0.35 Eosin% [...] months. -Follow-up with his PCP and his motion picture critic for other healthcare needs including management of [...] visit. Mari Akhtar APRN.CNP documented in this encounterOhiohealth Van Wert Hospital11-15-2022 Miscellaneous Notes* Telephone Encounter - Yaw Singh [...] to use. Refills can be sent to [facility] in [place] * Telephone Encounter - Yaw Singh MD [...] him and to where. documented in this encounterOhiohealth Van Wert Hospital11-14-2022 History of Present illness Narrative* Beatrice Zuleta, [...] 2022 TIME: 12:40 PM documented in this encounterOhiohealth Van Wert Hospital11-03-2022 Instructions* Patient Instructions* Yaw Singh MD - 02/09/2022 12:35 PM EDT Consider getting the shingrix vaccine for the prevention of shingles from a local pharmacy. blow up operator over the counter generic Lamisil or lotrimin cream and apply twice a day till redness resolved and then for one more week. check with oncology to see if any issues taking testosterone replacement if found to be low and if not let Dr. Singh know so test can be ordered. documented in this encounterOhiohealth Van Wert Hospital11-03-2022 History of Present illness Narrative* Yaw Singh MD - 02/09/2022 11:20 AM EDT Medicare Yearly Visit Medical B eligibilty date 03/09/19 Date of last exam 01/13/2021 PAST MEDICAL HISTORY PAST MEDICAL HISTORY Diagnosis Date Aortic valve stenosis 07/26/2015 Arthritis ASHD (arteriosclerotic heart disease) 2002 CABG 4 in '03; 3 stents LAD in '15 Asthma Atherosclerotic heart disease of [place] coronary artery with other forms of angina pectoris (HCC) Benign neoplasm of colon CAD (coronary artery disease) s/p CABG and multiple stents Calculus of kidney Carpal tunnel syndrome of right wrist Coronary artery disease involving [place] coronary artery without angina pectoris Seeing Dr. [...] 06/01/2020 COLONOSCOPY W/BX 02/22/2007 Diminutive polyp distal gufnpsi-[id number] EGD 04/15/2020 HEART CATHETERIZATION 12/2018 with 2 [...] & x2 12/2018 TOT/SUB ESOPHAGECTOMY W/THORACOT 08/09/2020 [place] esophagectomy, jejunostomy tube placement ALLERGIES: Environmental [...] very much. List of current specialists seen: Casting Inspector- Dr. Noland Oncologist- Dr. Jenkins Thoracic surgery [...] in '15 Asthma Atherosclerotic heart disease of [place] coronary artery with other forms of angina pectoris (HCC) Benign neoplasm of colon CAD (coronary artery disease) s/p CABG and multiple stents Calculus of kidney Carpal tunnel syndrome of right wrist Coronary artery disease involving [place] coronary artery without angina pectoris Seeing Dr. Noland Essential hypertension, benign Malignant neoplasm of lower third of esophagus (HCC) 04/15/2020 MRSA (methicillin resistant Staphylococcus aureus) 12/01/2016 treated with course of Linezolid beginning 10/29/16 Nonrheumatic aortic valve disorder On tube feeding diet 08/14/2020 History: 65 year old male s/p [place] esophagectomy, Pyloromyotomy, Jejunostomy tube placement for [...] COLONOSCOPY W/BIOPSY SINGLE/MULTIPLE 02/22/2007 Diminutive polyp distal egxxxqv-[id number] ECHO 01/08/2021 EGD 04/15/2020 HEART CATHETERIZATION 12/2018 [...] Lymph 1.00 - 4.00 k/uL 0.54 (L) Greer% % 8.0 Abs Greer <0.87 k/uL 0.32 Eosin% % 2.3 Abs [...] and regular exercise - Patient was counseled omrr-na-htuk by myself (the billing provider) for the [...] + TIBC 6. Coronary artery disease involving [place] coronary artery of [place] heart without angina pectoris- ICD9: 414.01, ICD10: [...] which included preparing to see the patient, [id number] patient care, completing clinical documentation, performing a medically appropriate examination, counseling and educating the patient/family/caregiver and ordering medications, tests, or procedures. Yaw Singh MD documented in this encounterOhiohealth Van Wert Hospital08-25-2022 History of Present illness Narrative* Mari Solorzanoenter, COMPANY DANCER.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 - 12/01/2021 9:56 AM EDT Chief Complaint [...] abdomen: Dedicated CT abdomen pelvis dictated separately. Feed Crusher (topogram) images: No additional findings. CT A/P [...] chest CT performed will be reported separately. Feed Crusher (topogram) images: No additional findings. EGD/EUS 04/26/2020: [...] carboplatin and paclitaxel. 05/24 through 06/23/2020. Underwent [place] esophagectomy on 08/09/2020. Pathology: 1. Esophagus [...] months. -Follow-up with his PCP and his motion picture critic for other healthcare needs including management of [...] visit. Mari Akhtar APRN.MOHINI documented in this encounterOhiohealth Van Wert Hospital08-10-2022 Miscellaneous Notes* Telephone Encounter - Erin Du [...] anymore. Wanted to confirm. documented in this encounterOhiohealth Van Wert Hospital08-03-2022 History of Present illness Narrative* Queta Gleason APRN.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 - 11/09/2021 1:03 PM EDT Part of this note was copied from previous note, all content has been individually reviewed, updated as necessary, and thoroughly reviewed. [facility] - OUTPATIENT THORACIC SURGERY CLINIC NOTE PT NAME: Jacob Cuba [facility] NO: [id number] THORACIC SURGEON: Renetta Radford M.D. DATE OF [...] mucosa and intestinal metaplasia, negative for carcinoma. [facility] [place] SYNOPTIC REPORT OF BERRY PATHOLOGIC FINDINGS [...] 66 year old year old male s/p [place] esophagectomy, Pyloromyotomy, Jejunostomy tubeplacement with Dr Renetta Radford on 08/09/2020. Pathology showed ypT3N0 adenocarcinoma distal esophagus. JARAD. PLAN: - Protonix BID - TUMS prior to bedtime if needed - Return for EGD in 8 months - Oncology follow up, Dr. Jenkins - Radiation/Oncology, Dr.Lee Queta Gleason APRN.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 documented in this encounterOhiohealth Van Wert Hospital08-03-2022 Nurse Note* Flory Grant RN - 11/09/2021 [...] RN In Department: GASTROENTEROLOGY documented in this encounterOhiohealth Van Wert Hospital07-27-2022 Miscellaneous Notes* Telephone Encounter - Carrie Wang RN - 11/02/2021 1:04 PM EDT Attempted to reach the patient at the contact number that they provided [phone] (home) [phone] (work) . Unable to speak with patient so without identifying the patient the following information was left on their voice mail: Date of procedure, location and report time A message was left informing the patient/patient leasing representative they must have a responsible adult [...] Number to call with questions or concerns [phone] Number to call to cancel their procedure [phone] Carrie Wang RN documented in this encounterOhiohealth Van Wert Hospital07-27-2022 History of Present illness Narrative* Richard Jenkins, [...] abdomen: Dedicated CT abdomen pelvis dictated separately. Feed Crusher (topogram) images: No additional findings. CT A/P [...] chest CT performed will be reported separately. Feed Crusher (topogram) images: No additional findings. 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 He has no cardiac symptoms. Stable dyspnea [...] No jaundice or rash. No petechiae. NEUROLOGIC: smoke room operator II-XII are grossly intact. No focal motor [...] Lymph 1.00 - 4.00 k/uL 0.54 (L) Greer% % 8.0 Abs Greer <0.87 k/uL 0.32 Eosin% % 2.3 Abs [...] months. -Follow-up with his PCP and his motion picture critic for other healthcare needs including management of [...] care. Richard Jenkins DO documented in this encounterOhio[facility]06-29-[facility] History of Present illness Narrative* Richard Jenkins [...] abdomen: Dedicated CT abdomen pelvis dictated separately. Feed Crusher (topogram) images: No additional findings. CT A/P [...] chest CT performed will be reported separately. Feed Crusher (topogram) images: No additional findings. EGD/EUS 04/26/2020: [...] carboplatin and paclitaxel. 05/24 through 06/23/2020. Underwent [place] esophagectomy on 08/09/2020. Pathology: 1. Esophagus [...] to do more work outside. 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 No chest pain [...] No jaundice or rash. No petechiae. NEUROLOGIC: smoke room operator II-XII are grossly intact. No focal motor [...] Lymph 1.00 - 4.00 k/uL 0.66 (L) Greer% % 7.9 Abs Greer <0.87 k/uL 0.40 Eosin% % 3.2 Abs [...] care. Richard Jenkins DO documented in this encounterOhiohealth [facility]06-27-2022 History of Present illness Narrative* DINA Mcelroy [...] 2021 TIME: 11:56 AM documented in this encounterOhiohealth Van W[facility]06-03-2022 Miscellaneous Notes* Telephone Encounter - Isa Valdez LPN - 09/09/2021 8:14 AM EDT Appt. Notes edited T4 added. Isa Valdez LPN * Telephone Encounter - Richard Jenkins DO - 09/09/2021 7:56 AM EDT Please add T4 to his lab work going forward. Richard Jenkins DO documented in this encounterOhiohealth Van W[facility]06-01-2022 History of Present illness Narrative* Queta Gleason APRN.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 - 09/07/2021 2:22 PM EDT Part of this note was copied from previous note, all content has been individually reviewed, updated as necessary, and thoroughly reviewed. [facility] - OUTPATIENT THORACIC SURGERY CLINIC NOTE PT NAME: Jacob Cuba [facility] NO: [id number] THORACIC SURGEON: Renetta Radford M.D. DATE OF [...] mucosa and intestinal metaplasia, negative for carcinoma. [facility] [place] SYNOPTIC REPORT OF BERRY PATHOLOGIC FINDINGS [...] Dr.Lee Queta Gleason APRN.MOHINI documented in this encounterOhiohealth Van W[facility]06-01-2022 Nurse Note* Luly Almeida LPN - 09/07/2021 [...] Instructions REFERRAL (RECOMMENDATION): None documented in this encounterOhiohealth Van W[facility]05-18-2022 History of Present illness Narrative* Mari Akhtar APRN.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 - 08/24/2021 8:04 AM EDT Chief Complaint [...] abdomen: Dedicated CT abdomen pelvis dictated separately. Feed Crusher (topogram) images: No additional findings. CT A/P [...] chest CT performed will be reported separately. Feed Crusher (topogram) images: No additional findings. EGD/EUS 04/26/2020: [...] visit. Mari Akhtar APRN.MOHINI documented in this encounterOhiohealth Van Wert [facility]04-21-2022 History of Present illness Narrative* HUNTER Santo - 07/28/2021 3:01 PM EDT Social Work Problem Referral Note INFORMATION/REFERRAL : Jacob Landa 66 year old male was referred by [facility] for the following reason(s): Insurance [...] F/U APPOINTMENT: PRHUNTER Andersen documented in this encounterOhiohealth Van Wert Hospital04-21-2022 History of Present illness Narrative* Samaria Bueno RN - 07/28/2021 3:01 PM EDT Assessment unchanged from 07/27/[address] Jenkins documented in this encounterOhiohealth Van Wert Hospital04-21-2022 Miscellaneous Notes* Telephone Encounter - Krystina Quinones LPN - 07/28/2021 8:55 AM EDT Pt notified of same. Krystina Quinones LPN * Telephone Encounter - Usha Mcgovern PA-C - 07/28/2021 8:47 AM EDT Let patient know that his cholesterol and urine results were completely normal. Usha Mcgovern PA-C documented in this encounterOhiohealth Van Wert [facility]04-20-2022 History of Present illness Narrative* Richard Jenkins [...] abdomen: Dedicated CT abdomen pelvis dictated separately. Feed Crusher (topogram) images: No additional findings. CT A/P [...] chest CT performed will be reported separately. Feed Crusher (topogram) images: No additional findings. EGD/EUS 04/26/2020: [...] carboplatin and paclitaxel. 05/24 through 06/23/2020. Underwent [place] esophagectomy on 08/09/2020. Pathology: 1. Esophagus [...] No jaundice or rash. No petechiae. NEUROLOGIC: smoke room operator II-XII are grossly intact. No focal motor [...] care. Richard Jenkins DO documented in this encounterOhiohealth Van [facility]05-08-2021 History of Past illness Narrative* Problem Noted [...] of this encounter (statuses as of 07/27/2021) [facility] of Past illness Narrative* Problem Noted [...] of this encounter (statuses as of 07/28/2021) [facility] of Past illness Narrative* Problem Noted Date Resolved Date On tube feeding diet 08/14/2020 01/13/2021 Overview: History: 65 year old male s/p [place] esophagectomy, Pyloromyotomy, Jejunostomy tube placement for [...] of this encounter (statuses as of 07/28/2021) [facility] of Past illness Narrative* Problem Noted [...] of this encounter (statuses as of 07/28/2021) [facility] of Past illness Narrative* Problem Noted Date Resolved Date On tube feeding diet 08/14/2020 01/13/2021 Overview: History: 65 year old male s/p [place] esophagectomy, Pyloromyotomy, Jejunostomy tube placement for [...] of this encounter (statuses as of 08/04/2021) [facility] of Past illness Narrative* Problem Noted [...] of this encounter (statuses as of 08/11/2021) [facility] of Past illness Narrative* Problem Noted Date Resolved Date On tube feeding diet 08/14/2020 01/13/2021 Overview: History: 65 year old male s/p [place] esophagectomy, Pyloromyotomy, Jejunostomy tube placement for [...] of this encounter (statuses as of 08/24/2021) [facility] of Past illness Narrative* Problem Noted [...] of this encounter (statuses as of 08/25/2021) [facility] of Past illness Narrative* Problem Noted [...] of this encounter (statuses as of 09/07/2021) [facility] of Past illness Narrative* Problem Noted [...] of this encounter (statuses as of 09/08/2021) [facility] of Past illness Narrative* Problem Noted Date Resolved Date On tube feeding diet 08/14/2020 01/13/2021 Overview: History: 65 year old male s/p [place] esophagectomy, Pyloromyotomy, Jejunostomy tube placement for [...] of this encounter (statuses as of 09/08/2021) [facility] of Past illness Narrative* Problem Noted Date Resolved Date On tube feeding diet 08/14/2020 01/13/2021 Overview: History: 65 year old male s/p [place] esophagectomy, Pyloromyotomy, Jejunostomy tube placement for [...] of this encounter (statuses as of 09/09/2021) [facility] of [facility] illness Narrative* Problem Noted Date Resolved Date On tube feeding diet 08/14/2020 01/13/2021 Overview: History: 65 year old male s/p [place] esophagectomy, Pyloromyotomy, Jejunostomy tube placement for [...] of this encounter (statuses as of 09/30/2021) [facility] of Past illness Narrative* Problem Noted Date Resolved Date On tube feeding diet 08/14/2020 01/13/2021 Overview: History: 65 year old male s/p [place] esophagectomy, Pyloromyotomy, Jejunostomy tube placement for [...] of this encounter (statuses as of 10/04/2021) [facility] of [facility] illness Narrative* Problem Noted [...] of this encounter (statuses as of 10/05/2021) [facility] illness Narrative* Problem Noted [...] of this encounter (statuses as of 10/20/2021) [facility] illness Narrative* Problem Noted [...] of this encounter (statuses as of 11/02/2021) [facility] Narrative* Problem Noted Date Resolved Date On tube feeding diet 08/14/2020 01/13/2021 Overview: History: 65 year old male s/p [place] esophagectomy, Pyloromyotomy, Jejunostomy tube placement for [...] of this encounter (statuses as of 11/02/2021) [facility] illness Narrative* Problem Noted Date Resolved Date On tube feeding diet 08/14/2020 01/13/2021 Overview: History: 65 year old male s/p [place] esophagectomy, Pyloromyotomy, Jejunostomy tube placement for [...] of this encounter (statuses as of 11/09/2021) [facility] illness Narrative* Problem Noted [...] of this encounter (statuses as of 11/10/2021) [facility] Narrative* Problem Noted [...] of this encounter (statuses as of 11/16/2021) [facility] Narrative* Problem Noted Date Resolved Date On tube feeding diet 08/14/2020 01/13/2021 Overview: History: 65 year old male s/p [place] esophagectomy, Pyloromyotomy, Jejunostomy tube placement for [...] of this encounter (statuses as of 12/02/2021) [facility] Narrative* Problem Noted [...] of this encounter (statuses as of 02/09/2022) [facility] Narrative* Problem Noted [...] of this encounter (statuses as of 02/22/2022) [facility] Narrative* Problem Noted [...] of this encounter (statuses as of 02/24/2022) [facility] Narrative* Problem Noted [...] of this encounter (statuses as of 03/17/2022) [facility] Narrative* Problem Noted [...] of this encounter (statuses as of 03/18/2022) [facility] Narrative* Problem Noted [...] of this encounter (statuses as of 03/20/2022) [facility] Narrative* Problem Noted [...] of this encounter (statuses as of 04/21/2022) [facility] Narrative* Problem Noted Date Resolved Date On tube feeding diet 08/14/2020 01/13/2021 Overview: History: 65 year old male s/p [place] esophagectomy, Pyloromyotomy, Jejunostomy tube placement for [...] of this encounter (statuses as of 05/25/2022) [facility] Narrative* Problem Noted Date Resolved Date On tube feeding diet 08/14/2020 01/13/2021 Overview: History: 65 year old male s/p [place] esophagectomy, Pyloromyotomy, Jejunostomy tube placement for [...] of this encounter (statuses as of 05/29/2022) [facility] Narrative* Problem Noted Date Resolved Date On tube feeding diet 08/14/2020 01/13/2021 Overview: History: 65 year old male s/p [place] esophagectomy, Pyloromyotomy, Jejunostomy tube placement for [...] of this encounter (statuses as of 06/09/2022) [facility] Narrative* Problem Noted [...] of this encounter (statuses as of 06/16/2022) [facility] Narrative* Problem Noted Date Resolved Date On tube feeding diet 08/14/2020 01/13/2021 Overview: History: 65 year old male s/p [place] esophagectomy, Pyloromyotomy, Jejunostomy tube placement for [...] of this encounter (statuses as of 06/26/2022) [facility] Narrative* Problem Noted Date Resolved Date On tube feeding diet 08/14/2020 01/13/2021 Overview: History: 65 year old male s/p [place] esophagectomy, Pyloromyotomy, Jejunostomy tube placement for [...] of this encounter (statuses as of 08/02/2022) [facility] Narrative* Problem Noted Date Resolved Date On tube feeding diet 08/14/2020 01/13/2021 Overview: History: 65 year old male s/p [place] esophagectomy, Pyloromyotomy, Jejunostomy tube placement for [...] of this encounter (statuses as of 08/03/2022) [facility] Narrative* Problem Noted [...] of this encounter (statuses as of 08/09/2022) [facility] Narrative* Problem Noted [...] of this encounter (statuses as of 08/22/2022) [facility] Narrative* Problem Noted [...] of this encounter (statuses as of 11/23/2022) [facility] Narrative* Problem Noted [...] of this encounter (statuses as of 02/11/2023) [facility] Narrative* Problem Noted Date Diagnosed Date Resolved Date On tube feeding diet 08/14/2020 021 Overview: History: 65 year old male s/p [place] esophagectomy, Pyloromyotomy, Jejunostomy tube placement for [...] of this encounter (statuses as of 02/11/2023) [facility] Narrative* Problem Noted [...] of this encounter (statuses as of 02/11/2023) [facility] Narrative* Problem Noted Date Diagnosed Date Resolved Date On tube feeding diet 08/14/2020 021 Overview: History: 65 year old male s/p [place] esophagectomy, Pyloromyotomy, Jejunostomy tube placement for [...] of this encounter (statuses as of 02/11/2023) [facility] Narrative* Problem Noted Date Diagnosed Date Resolved Date On tube feeding diet 08/14/2020 021 Overview: History: 65 year old male s/p [place] esophagectomy, Pyloromyotomy, Jejunostomy tube placement for [...] of this encounter (statuses as of 02/13/2023) [facility] Narrative* Problem Noted [...] of this encounter (statuses as of 02/14/2023) [facility] Narrative* Problem Noted [...] of this encounter (statuses as of 02/14/2023) [facility] Narrative* Problem Noted [...] of this encounter (statuses as of 02/20/2023) [facility] Narrative* Problem Noted [...] of this encounter (statuses as of 02/21/2023) [facility] Narrative* Problem Noted Date Diagnosed Date Resolved Date On tube feeding diet 08/14/2020 021 Overview: History: 65 year old male s/p [place] esophagectomy, Pyloromyotomy, Jejunostomy tube placement for [...] of this encounter (statuses as of 02/28/2023) [facility] Narrative* Problem Noted [...] of this encounter (statuses as of 03/30/2023) [facility] Narrative* Problem Noted Date Diagnosed Date Resolved Date On tube feeding diet 08/14/2020 021 Overview: History: 65 year old male s/p [place] esophagectomy, Pyloromyotomy, Jejunostomy tube placement for [...] of this encounter (statuses as of 05/28/2023) [facility] Narrative* Problem Noted [...] of this encounter (statuses as of 05/29/2023) [facility] Narrative* Problem Noted [...] of this encounter (statuses as of 06/06/2023) [facility] Narrative* Problem Noted Date Diagnosed Date Resolved Date On tube feeding diet 08/14/2020 021 Overview: History: 65 year old male s/p [place] esophagectomy, Pyloromyotomy, Jejunostomy tube placement for [...] of this encounter (statuses as of 06/18/2023) [facility] Narrative* Problem Noted Date Diagnosed Date Resolved Date On tube feeding diet 08/14/2020 021 Overview: History: 65 year old male s/p [place] esophagectomy, Pyloromyotomy, Jejunostomy tube placement for [...] of this encounter (statuses as of 06/19/2023) [facility] Narrative* Problem Noted Date Diagnosed Date Resolved Date On tube feeding diet 08/14/2020 021 Overview: History: 65 year old male s/p [place] esophagectomy, Pyloromyotomy, Jejunostomy tube placement for [...] of this encounter (statuses as of 06/21/2023) [facility] Narrative* Problem Noted Date Diagnosed Date Resolved Date On tube feeding diet 08/14/2020 021 Overview: History: 65 year old male s/p [place] esophagectomy, Pyloromyotomy, Jejunostomy tube placement for [...] of this encounter (statuses as of 06/29/2023) [facility] Narrative* Problem Noted [...] of this encounter (statuses as of 06/29/2023) [facility]arrative* Problem Noted [...] of this encounter (statuses as of 06/29/2023) [facility] Narrative* Problem Noted Date Diagnosed Date Resolved Date On tube feeding diet 08/14/2020 021 Overview: History: 65 year old male s/p [place] esophagectomy, Pyloromyotomy, Jejunostomy tube placement for [...] of this encounter (statuses as of 07/02/2023) [facility] Narrative* Problem Noted Date Diagnosed Date Resolved Date On tube feeding diet 08/14/2020 021 Overview: History: 65 year old male s/p [place] Roger esophagectomy, Pyloromyotomy, Jejunostomy tube placement for [...] of this encounter (statuses as of 07/13/2023) [facility] Narrative* Problem Noted [...] of this encounter (statuses as of 07/20/2023) [facility] NoteHNO ID: [id number] Author: Renetta Radford Service: ? Author Type: [...] a cardiac risk assessment from his primary motion picture critic and will then plan to see him back following completion of therapy for restaging and surgical planning. ? Plan: 1) Cards clearance from primary motion picture critic 2) RTC following completion of induction therapy [...] visit with restaging testing on July 09 [facility] or July [address] Chest/Abd/Pelvis Anticipated OR Date: 08/09/2020 MAIN [facility] 08/06/2020 MAIN COVID 08/06/2020 MAIN ? Alisa Estrada RN ? Stress Test 06/25/2020 Conclusion: Normal exercise myocardial perfusion stress test at a moderate workload with no evidence of ischemia. Good functional capacity. No angina noted. ? OPD note 06/25/2020 Hem/Onc ? ?[facility]04-07-2021 NoteHNO ID: [id number] Author: Barry Shaw (Tech) Service: Radiology Author Type: Shake Table Operator Type: Progress Notes Filed: 07/14/2020 12:10 PM [...] BY: Barry Shaw July 14, 2020 12:10 PM[facility]2021 NoteHNO ID: [id number] Author: Jordana Jeffries RN Service: Radiology Author [...] Landa DATE: July 14, 2020 TIME: 11:09 [facility]11-25-2019 Evaluation note* Diagnosis Onset Date Resolution Status Adenocarcinoma of esophagus chronic Atherosclerosis of coronary artery of [place] heart without angina pectoris chronic Hyperlipidemia chronic History of aortic valve replacement March 03 9 resolved [facility] Work Phone: Consult note Author Tawny Covington [facility] Note Date/Time June 30, 2024 10: 16am [facility] Medical Records Department [address] [place] [address] Anesthesia Postop Eval II 06/30/24 1015 MR#: [id number] Acct: [id number] Name: JACOB LANDA Rep #:[id number] : 1955 69 From: Tawny Covington PCP: Dr. Yaw Singh MD Status:REG SDC Y Race: C Location[facility]1 Anesthesia Postop Eval I Sum Postop Eval Completion status Anesthesia document: Postop Eval 1 completed: Yes Anesthesia Postop Eval I Summary Anesthesia Postop Eval I Summary: Anesthesia Postop Eval I: Assessment Summary Airway patent Yes 06/30/24 09:34 [email or web address] [email or web address] Spontaneous unlabored Yes 06/30/24 09:34 [email or web address] [email or web address] respirations Mental status Awake,Calm 06/30/24 09:34 [email or web address] [email or web address] nausea No 06/30/24 09:34 [email or web address] [email or web address] Vomiting No 06/30/24 09:34 [email or web address] [email or web address] Anesthesia Postop Eval I: Fluid Summary Crystalloid volume administer 250 06/30/24 09:34 [email or web address] [email or web address] (ml) Colloids volume administered ( ml) Blood Product volume administered (ml) Total IV fluid infused 250 06/30/24 09:34 [email or web address] Anesthesia Postop Eval I: Summary Notes Anesthesia Complication Yes 06/30/24 09:34 [email or web address] [email or web address] Anesthesia Complication right nares with 06/30/24 09:34 [email or web address] Comment: epistaxis from npa Post-operative progress note Anesthesia: Postop Eval II Evaluation Mental status: Awake Pain Level: 2 nausea: No Vomiting: No 06/30/24 1016 <Electronically signed by Tawny dickson> Date _ Tawny Santos Signature: Date CC: ~ Signed [facility] Work Phone: Evaluation note* Diagnosis Aortic valve stenosis, etiology of cardiac valve disease unspecified documented in this encounter [facility] Work Phone: Evaluation note* Diagnosis Severe aortic stenosis Aortic valve disorders Coronary artery disease involving [place] coronary artery of [place] heart without angina pectoris Essential hypertension Unspecified [...] unspecified Other hypervolemia documented in this encounter [facility] note* Diagnosis Esophageal adenocarcinoma (HCC)- Primary Malignant neoplasm of esophagus, unspecified site 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 documented in this encounter [facility] note* Diagnosis Malignant neoplasm of lower third of esophagus (HCC)- Primary Malignant neoplasm of lower third of esophagus documented in this encounter [facility] note* Diagnosis Esophageal adenocarcinoma (HCC)- Primary Malignant neoplasm of esophagus, unspecified site 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 documented in this encounter [facility] note* Diagnosis Esophageal adenocarcinoma (HCC)- Primary Malignant neoplasm of esophagus, unspecified site documented in this encounter [facility] note* Diagnosis Esophageal adenocarcinoma (HCC)- Primary Malignant neoplasm of esophagus, unspecified site 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 documented in this encounter [facility] note* Diagnosis Malignant neoplasm of lower third of esophagus (HCC)- Primary Malignant neoplasm of lower third of esophagus Duodenal ulcer Duodenal ulcer, unspecified as acute or chronic, without hemorrhage, perforation, or obstruction documented in this encounter [facility] note* Diagnosis 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 documented in this encounter [facility] note* Diagnosis Esophageal adenocarcinoma (HCC)- Primary Malignant neoplasm of esophagus, unspecified site 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 documented in this encounter [facility] note* Diagnosis Esophageal adenocarcinoma (HCC)- Primary Malignant neoplasm of esophagus, unspecified site Acquired hypothyroidism Unspecified hypothyroidism Iron deficiency anemia due to chronic blood loss Iron deficiency anemia secondary to blood loss (chronic) documented in this encounter [facility] note* Diagnosis 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 Pleural effusion Unspecified pleural effusion documented in this encounter [facility] note* Diagnosis Malignant neoplasm of lower third of esophagus (HCC)- Primary Malignant neoplasm of lower third of esophagus Pleural effusion Unspecified pleural effusion [facility] Esophageal adenocarcinoma (HCC)- Primary Malignant neoplasm of esophagus, unspecified site 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 [facility] Malignant neoplasm of lower third of esophagus (HCC)- Primary Malignant neoplasm of lower third of esophagus [facility] Diagnosis Malignant neoplasm of lower third of esophagus (HCC)- Primary Malignant neoplasm of lower third of esophagus [facility] Diagnosis 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 [facility] Diagnosis Malignant neoplasm of lower third of esophagus (HCC)- Primary Malignant neoplasm of lower third of esophagus [facility] Diagnosis Medicare annual wellness visit, subsequent- Primary Routine general medical examination at a health care facility Essential hypertension, benign Mixed hyperlipidemia Gastroesophageal reflux disease, unspecified whether esophagitis present Iron deficiency anemia due to chronic blood loss Iron deficiency anemia secondary to blood loss (chronic) Coronary artery disease involving [place] coronary artery of [place] heart without angina pectoris Aortic valve stenosis, [...] single bacterial disease [facility] Diagnosis Malignant neoplasm of lower third of esophagus (HCC)- Primary Malignant neoplasm of lower third of esophagus [facility] Diagnosis Sinus congestion- Primary Other diseases of nasal cavity and sinuses Acute cough [facility] Diagnosis Malignant neoplasm of lower third of esophagus (HCC)- Primary Malignant neoplasm of lower third of esophagus [facility] Diagnosis Rib injury- Primary Sprain of ribs [facility] Diagnosis Malignant neoplasm of lower third of esophagus (HCC)- Primary Malignant neoplasm of lower third of esophagus [facility] Diagnosis Esophageal adenocarcinoma (HCC)- Primary Malignant neoplasm of esophagus, unspecified site 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 [facility] Diagnosis Essential hypertension, benign- Primary Mixed hyperlipidemia Gastroesophageal reflux disease, unspecified whether esophagitis present Esophageal adenocarcinoma (HCC) Malignant neoplasm of esophagus, unspecified site Coronary artery disease involving [place] coronary artery of [place] heart without angina pectoris S/P CABG x 4 Postsurgical aortocoronary bypass status 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 Iron deficiency anemia due to chronic blood loss Iron deficiency anemia secondary to blood loss (chronic) Benign prostatic hyperplasia, unspecified whether lower urinary tract symptoms present [facility] Diagnosis Malignant neoplasm of lower third of esophagus (HCC)- Primary Malignant neoplasm of lower third of esophagus documented in this encounter [facility] noteNo assessment information availableWMagruder Hospital Work Phone: Evaluation note* Diagnosis 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 [facility] Diagnosis 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 [facility] Diagnosis Malignant neoplasm of lower third of esophagus (HCC)- Primary Malignant neoplasm of lower third of esophagus [facility] Diagnosis 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 [facility] Diagnosis APPOINTMENT CANCELLED- Primary [facility] Diagnosis Esophageal adenocarcinoma (HCC)- Primary Malignant neoplasm of esophagus, unspecified site Compression fracture of thoracic vertebra, unspecified thoracic vertebral level, initial encounter (HCC) [facility] Diagnosis Rhinosinusitis- Primary Unspecified sinusitis (chronic) [facility] Diagnosis Malignant neoplasm of lower third of esophagus (HCC)- Primary Malignant neoplasm of lower third of esophagus [facility] Diagnosis Malignant neoplasm of esophagus, unspecified location (HCC)- Primary [facility] Diagnosis Malignant neoplasm of esophagus, unspecified location (HCC) Pre-op exam Preoperative examination, unspecified 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 Essential hypertension, benign Mixed hyperlipidemia Coronary artery disease involving [place] coronary artery of [place] heart without angina pectoris Gastroesophageal reflux disease, [...] third of esophagus Coronary artery disease involving [place] coronary artery without angina pectoris Pre-op exam Preoperative examination, unspecified [facility] Diagnosis Closed wedge compression fracture of T10 vertebra with routine healing, subsequent encounter- Primary [facility] Diagnosis RUQ pain- Primary Abdominal pain, right upper quadrant Nausea Nausea alone Chronic midline low back pain without sciatica Intertrigo Other specified erythematous condition [facility] Diagnosis RUQ pain Abdominal pain, right upper quadrant Nausea Nausea alone [facility] Diagnosis RUQ pain Abdominal pain, right upper quadrant Nausea Nausea alone [facility] Diagnosis Strain of thoracic paraspinal muscles excluding T1 and T2 levels, sequela- Primary Closed wedge compression fracture of T10 vertebra with routine healing, subsequent encounter 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 Kyphosis (acquired) (postural) [facility] Diagnosis Malignant neoplasm of lower third of esophagus (HCC)- Primary Malignant neoplasm of lower third of esophagus [facility] Diagnosis Closed wedge compression fracture of T10 vertebra with routine healing, subsequent encounter 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 Strain of thoracic paraspinal muscles excluding T1 and T2 levels, sequela Kyphosis (acquired) (postural) [facility] Diagnosis Malignant neoplasm of lower third [...] and respiratory abnormality Coronary artery disease involving [place] coronary artery of [place] heart without angina pectoris Essential hypertension, benign [...] whether esophagitis present Coronary artery disease involving [place] coronary artery of [place] heart without angina pectoris Ascending aorta dilation [...] of other medications [facility] Diagnosis Mixed hyperlipidemia- Primary Coronary artery disease involving [place] coronary artery of [place] heart without angina pectoris [facility] Diagnosis Pleural effusion- Primary Unspecified pleural effusion Chronic heart failure with preserved ejection fraction (HCC) [facility] Diagnosis Malignant neoplasm of esophagus, unspecified location (HCC) Pre-op exam Preoperative examination, unspecified 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 Essential hypertension, benign Mixed hyperlipidemia Coronary artery disease involving [place] coronary artery of [place] heart without angina pectoris Gastroesophageal reflux disease, [...] third of esophagus Coronary artery disease involving [place] coronary artery without angina pectoris Pre-op exam Preoperative examination, unspecified Pleural effusion Unspecified pleural effusion TRIPATHI (dyspnea on exertion) Other dyspnea and respiratory abnormality [facility] Diagnosis Malignant neoplasm of esophagus, unspecified location (HCC) Pre-op exam Preoperative examination, unspecified 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 Essential hypertension, benign Mixed hyperlipidemia Coronary artery disease involving [place] coronary artery of [place] heart without angina pectoris Gastroesophageal reflux disease, [...] third of esophagus Coronary artery disease involving [place] coronary artery without angina pectoris Excessive bleeding- Primary [facility] Diagnosis Rib injury Sprain of ribs Malignant neoplasm of esophagus, unspecified location (HCC) Pre-op exam Preoperative examination, unspecified 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 Essential hypertension, benign Mixed hyperlipidemia Coronary artery disease involving [place] coronary artery of [place] heart without angina pectoris Gastroesophageal reflux disease, unspecified whether esophagitis present Aortic valve stenosis, etiology of cardiac valve disease unspecified [facility] Diagnosis Malignant neoplasm of esophagus, unspecified location (HCC) Pre-op exam Preoperative examination, unspecified 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 Essential hypertension, benign Mixed hyperlipidemia Coronary artery disease involving [place] coronary artery of [place] heart without angina pectoris Gastroesophageal reflux disease, [...] third of esophagus Coronary artery disease involving [place] coronary artery without angina pectoris Pressure injury of buttock, stage 2, unspecified laterality (HCC)- Primary CKD (chronic kidney disease) stage 4, GFR 15-29 ml/min (HCC) Chronic kidney disease, Stage IV (severe) 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 [facility] Diagnosis Malignant neoplasm of esophagus, unspecified location (HCC) Pre-op exam Preoperative examination, unspecified 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 Essential hypertension, benign Mixed hyperlipidemia Coronary artery disease involving [place] coronary artery of [place] heart without angina pectoris Gastroesophageal reflux disease, [...] third of esophagus Coronary artery disease involving [place] coronary artery without angina pectoris Heart failure, unspecified HF chronicity, unspecified heart failure type (HCC)- Primary [facility] Diagnosis Malignant neoplasm of esophagus, unspecified location (HCC) Pre-op exam Preoperative examination, unspecified 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 Essential hypertension, benign Mixed hyperlipidemia Coronary artery disease involving [place] coronary artery of [place] heart without angina pectoris Gastroesophageal reflux disease, [...] third of esophagus Coronary artery disease involving [place] coronary artery without angina pectoris Anemia, unspecified type- Primary [facility] Diagnosis Malignant neoplasm of esophagus, unspecified location (HCC) Pre-op exam Preoperative examination, unspecified 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 Essential hypertension, benign Mixed hyperlipidemia Coronary artery disease involving [place] coronary artery of [place] heart without angina pectoris Gastroesophageal reflux disease, [...] third of esophagus Coronary artery disease involving [place] coronary artery without angina pectoris Malignant neoplasm of lower third of esophagus (HCC)- Primary Malignant neoplasm of lower third of esophagus Early satiety Nausea Nausea alone Anemia, unspecified type [facility] Diagnosis Malignant neoplasm of esophagus, unspecified location (HCC) Pre-op exam Preoperative examination, unspecified 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 Essential hypertension, benign Mixed hyperlipidemia Coronary artery disease involving [place] coronary artery of [place] heart without angina pectoris Gastroesophageal reflux disease, [...] third of esophagus Coronary artery disease involving [place] coronary artery without angina pectoris Healing pressure injury, stage 1- Primary [facility] Diagnosis Malignant neoplasm of esophagus, unspecified location (HCC) Pre-op exam Preoperative examination, unspecified 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 Essential hypertension, benign Mixed hyperlipidemia Coronary artery disease involving [place] coronary artery of [place] heart without angina pectoris Gastroesophageal reflux disease, [...] third of esophagus Coronary artery disease involving [place] 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 Early satiety Nausea Nausea alone [facility] Diagnosis Malignant neoplasm of esophagus, unspecified location (HCC) Pre-op exam Preoperative examination, unspecified 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 Essential hypertension, benign Mixed hyperlipidemia Coronary artery disease involving [place] coronary artery of [place] heart without angina pectoris Gastroesophageal reflux disease, [...] third of esophagus Coronary artery disease involving [place] 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 Early satiety Nausea Nausea alone [facility] Diagnosis Malignant neoplasm of esophagus, unspecified location (HCC) Pre-op exam Preoperative examination, unspecified 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 Essential hypertension, benign Mixed hyperlipidemia Coronary artery disease involving [place] coronary artery of [place] heart without angina pectoris Gastroesophageal reflux disease, [...] third of esophagus Coronary artery disease involving [place] coronary artery without angina pectoris Pleural effusion- Primary Unspecified pleural effusion Lung nodules Other nonspecific abnormal finding of lung field Seasonal allergies Allergic rhinitis, cause unspecified Oral thrush Candidiasis of mouth [facility] Diagnosis Malignant neoplasm of esophagus, unspecified location (HCC) Pre-op exam Preoperative examination, unspecified 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 Essential hypertension, benign Mixed hyperlipidemia Coronary artery disease involving [place] coronary artery of [place] heart without angina pectoris Gastroesophageal reflux disease, [...] third of esophagus Coronary artery disease involving [place] coronary artery without angina pectoris Pleural effusion Unspecified pleural effusion [facility] Diagnosis Malignant neoplasm of esophagus, unspecified location (HCC) Pre-op exam Preoperative examination, unspecified 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 Essential hypertension, benign Mixed hyperlipidemia Coronary artery disease involving [place] coronary artery of [place] heart without angina pectoris Gastroesophageal reflux disease, [...] third of esophagus Coronary artery disease involving [place] coronary artery without angina pectoris Pleural effusion Unspecified pleural effusion [facility] Diagnosis Malignant neoplasm of esophagus, unspecified location (HCC) Pre-op exam Preoperative examination, unspecified 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 Essential hypertension, benign Mixed hyperlipidemia Coronary artery disease involving [place] coronary artery of [place] heart without angina pectoris Gastroesophageal reflux disease, [...] third of esophagus Coronary artery disease involving [place] coronary artery without angina pectoris Closed intracapsular fracture of left femur with routine healing- Primary Aftercare for healing traumatic fracture of hip [facility] Diagnosis Malignant neoplasm of esophagus, unspecified location (HCC) Pre-op exam Preoperative examination, unspecified 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 Essential hypertension, benign Mixed hyperlipidemia Coronary artery disease involving [place] coronary artery of [place] heart without angina pectoris Gastroesophageal reflux disease, [...] third of esophagus Coronary artery disease involving [place] coronary artery without angina pectoris Medicare annual wellness visit, subsequent- Primary Routine general medical examination at a health care facility Essential hypertension, benign Mixed hyperlipidemia Coronary artery disease involving [place] coronary artery of [place] heart without angina pectoris Aortic valve stenosis, [...] of other medications documented in this encounter [facility] note* Diagnosis Malignant neoplasm of esophagus, unspecified location (HCC) Pre-op exam Preoperative examination, unspecified 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 Essential hypertension, benign Mixed hyperlipidemia Coronary artery disease involving [place] coronary artery of [place] heart without angina pectoris Gastroesophageal reflux disease, [...] third of esophagus Coronary artery disease involving [place] 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 [facility] Diagnosis Malignant neoplasm of esophagus, unspecified location (HCC) Pre-op exam Preoperative examination, unspecified 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 Essential hypertension, benign Mixed hyperlipidemia Coronary artery disease involving [place] coronary artery of [place] heart without angina pectoris Gastroesophageal reflux disease, unspecified whether esophagitis present Aortic valve stenosis, etiology of cardiac valve disease unspecified Essential hypertension, benign S/P CABG x 4 Postsurgical aortocoronary bypass status Mixed hyperlipidemia Asthma Unspecified asthma GERD (gastroesophageal reflux disease) Esophageal reflux 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 artery disease involving [place] coronary artery without angina pectoris Malignant neoplasm of lower third of esophagus (HCC)- Primary Malignant neoplasm of lower third of esophagus Closed wedge compression fracture of T10 vertebra with delayed healing, subsequent encounter documented in this encounter [facility] note* Diagnosis Malignant neoplasm of esophagus, unspecified location (HCC) Pre-op exam Preoperative examination, unspecified 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 Essential hypertension, benign Mixed hyperlipidemia Coronary artery disease involving [place] [place] coronary artery of [place] heart without angina pectoris Gastroesophageal reflux disease, unspecified whether esophagitis present Aortic valve stenosis, etiology of cardiac valve disease unspecified Essential hypertension, benign S/P CABG x 4 Postsurgical aortocoronary bypass status Mixed hyperlipidemia Asthma Unspecified asthma GERD (gastroesophageal reflux disease) Esophageal reflux 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 artery disease involving [place] coronary artery without angina pectoris Secondary infection of skin- Primary Other specified local infections of skin and subcutaneous tissue Dog scratch Other and unspecified superficial injury of other, multiple, and unspecified sites, without mention of infection Need for tetanus booster Need for prophylactic vaccination with tetanus toxoid alone [facility] Diagnosis Malignant neoplasm of esophagus, unspecified location (HCC) Pre-op exam Preoperative examination, unspecified 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 Essential hypertension, benign Mixed hyperlipidemia Coronary artery disease involving [place] coronary artery of [place] heart without angina pectoris Gastroesophageal reflux disease, unspecified whether esophagitis present Aortic valve stenosis, etiology of cardiac valve disease unspecified Essential hypertension, benign S/P CABG x 4 Postsurgical aortocoronary bypass status Mixed hyperlipidemia Asthma Unspecified asthma GERD (gastroesophageal reflux disease) Esophageal reflux 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 artery disease involving [place] 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 Closed wedge compression fracture of T10 vertebra with delayed healing, subsequent [facility] Diagnosis Malignant neoplasm of esophagus, unspecified location (HCC) Pre-op exam Preoperative examination, unspecified 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 Essential hypertension, benign Mixed hyperlipidemia Coronary artery disease involving [place] coronary artery of [place] heart without angina pectoris Gastroesophageal reflux disease, unspecified whether esophagitis present Aortic valve stenosis, etiology of cardiac valve disease unspecified Essential hypertension, benign S/P CABG x 4 Postsurgical aortocoronary bypass status Mixed hyperlipidemia Asthma Unspecified asthma GERD (gastroesophageal reflux disease) Esophageal reflux 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 artery disease involving [place] coronary artery without angina pectoris ESRD on dialysis (HCC)- Primary End stage renal disease Pre-transplant evaluation for ESRD (end stage renal disease) Other specified pre-operative examination [facility] Diagnosis Malignant neoplasm of esophagus, unspecified location (HCC) Pre-op exam Preoperative examination, unspecified 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 Essential hypertension, benign Mixed hyperlipidemia Coronary artery disease involving [place] coronary artery of [place] heart without angina pectoris Gastroesophageal reflux disease, unspecified whether esophagitis present Aortic valve stenosis, etiology of cardiac valve disease unspecified Essential hypertension, benign S/P CABG x 4 Postsurgical aortocoronary bypass status Mixed hyperlipidemia Asthma Unspecified asthma GERD (gastroesophageal reflux disease) Esophageal reflux 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 artery disease involving [place] coronary artery without angina pectoris Pre-transplant evaluation for kidney transplant- Primary Other specified pre-operative examination [facility] Diagnosis Malignant neoplasm of esophagus, unspecified location (HCC) Pre-op exam Preoperative examination, unspecified 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 Essential hypertension, benign Mixed hyperlipidemia Coronary artery disease involving [place] coronary artery of [place] heart without angina pectoris Gastroesophageal reflux disease, unspecified whether esophagitis present Aortic valve stenosis, etiology of cardiac valve disease unspecified Essential hypertension, benign S/P CABG x 4 Postsurgical aortocoronary bypass status Mixed hyperlipidemia Asthma Unspecified asthma GERD (gastroesophageal reflux disease) Esophageal reflux 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 artery disease involving [place] coronary artery without angina pectoris Dietary counseling and surveillance- Primary Dietary surveillance and counseling Awaiting organ transplant Awaiting organ transplant status documented in this encounter [facility] note* Diagnosis Malignant neoplasm of esophagus, unspecified location (HCC) Pre-op exam Preoperative examination, unspecified 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 Essential hypertension, benign Mixed hyperlipidemia Coronary artery disease involving [place] coronary artery of [place] heart without angina pectoris Gastroesophageal reflux disease, unspecified whether esophagitis present Aortic valve stenosis, etiology of cardiac valve disease unspecified Essential hypertension, benign S/P CABG x 4 Postsurgical aortocoronary bypass status Mixed hyperlipidemia Asthma Unspecified asthma GERD (gastroesophageal reflux disease) Esophageal reflux 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 artery disease involving [place] coronary artery without angina pectoris Pre-transplant evaluation for end stage renal disease- Primary Other specified pre-operative examination documented in this encounter [facility] note* Diagnosis Malignant neoplasm of esophagus, unspecified location (HCC) Pre-op exam Preoperative examination, unspecified 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 Essential hypertension, benign Mixed hyperlipidemia Coronary artery disease involving [place] coronary artery of [place] heart without angina pectoris Gastroesophageal reflux disease, unspecified whether esophagitis present Aortic valve stenosis, etiology of cardiac valve disease unspecified Essential hypertension, benign S/P CABG x 4 Postsurgical aortocoronary bypass status Mixed hyperlipidemia Asthma Unspecified asthma GERD (gastroesophageal reflux disease) Esophageal reflux 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 artery disease involving [place] coronary artery without angina pectoris Pre-transplant evaluation for kidney transplant- Primary Other specified pre-operative examination [facility] Diagnosis Malignant neoplasm of esophagus, unspecified location (HCC) Pre-op exam Preoperative examination, unspecified 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 Essential hypertension, benign Mixed hyperlipidemia Coronary artery disease involving [place] coronary artery of [place] heart without angina pectoris Gastroesophageal reflux disease, unspecified whether esophagitis present Aortic valve stenosis, etiology of cardiac valve disease unspecified Essential hypertension, benign S/P CABG x 4 Postsurgical aortocoronary bypass status Mixed hyperlipidemia Asthma Unspecified asthma GERD (gastroesophageal reflux disease) Esophageal reflux 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 artery disease involving [place] coronary artery without angina pectoris Pre-transplant evaluation for kidney transplant- Primary Other specified pre-operative examination Renal failure, unspecified chronicity Preoperative examination Preoperative examination, unspecified Special screening for malignant neoplasm of prostate Encounter for screening for human immunodeficiency virus (HIV) Special screening examination for other specified viral diseases Other complications of anesthesia, initial encounter [facility] Diagnosis Malignant neoplasm of esophagus, unspecified location (HCC) Pre-op exam Preoperative examination, unspecified 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 Essential hypertension, benign Mixed hyperlipidemia Coronary artery disease involving [place] coronary artery of [place] heart without angina pectoris Gastroesophageal reflux disease, unspecified whether esophagitis present Aortic valve stenosis, etiology of cardiac valve disease unspecified Essential hypertension, benign S/P CABG x 4 Postsurgical aortocoronary bypass status Mixed hyperlipidemia Asthma Unspecified asthma GERD (gastroesophageal reflux disease) Esophageal reflux 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 artery disease involving [place] coronary artery without angina pectoris Pre-transplant evaluation for kidney transplant- Primary Other specified pre-operative examination [facility] Diagnosis Malignant neoplasm of esophagus, unspecified location (HCC) Pre-op exam Preoperative examination, unspecified 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 Essential hypertension, benign Mixed hyperlipidemia Coronary artery disease involving [place] coronary artery of [place] heart without angina pectoris Gastroesophageal reflux disease, unspecified whether esophagitis present Aortic valve stenosis, etiology of cardiac valve disease unspecified Essential hypertension, benign S/P CABG x 4 Postsurgical aortocoronary bypass status Mixed hyperlipidemia Asthma Unspecified asthma GERD (gastroesophageal reflux disease) Esophageal reflux 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 artery disease involving [place] coronary artery without angina pectoris Pre-transplant evaluation for kidney transplant- Primary Other specified pre-operative examination documented in this encounter [facility] note* Diagnosis Malignant neoplasm of esophagus, unspecified location (HCC) Pre-op exam Preoperative examination, unspecified 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 Essential hypertension, benign Mixed hyperlipidemia Coronary artery disease involving [place] coronary artery of [place] heart without angina pectoris Gastroesophageal reflux disease, unspecified whether esophagitis present Aortic valve stenosis, etiology of cardiac valve disease unspecified Essential hypertension, benign S/P CABG x 4 Postsurgical aortocoronary bypass status Mixed hyperlipidemia Asthma Unspecified asthma GERD (gastroesophageal reflux disease) Esophageal reflux 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 artery disease involving [place] coronary artery without angina pectoris Pre-transplant evaluation [...] tract symptoms present documented in this encounter [facility] note* Diagnosis Malignant neoplasm of esophagus, unspecified location (HCC) Pre-op exam Preoperative examination, unspecified 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 Essential hypertension, benign Mixed hyperlipidemia Coronary artery disease involving [place] coronary artery of [place] heart without angina pectoris Gastroesophageal reflux disease, unspecified whether esophagitis present Aortic valve stenosis, etiology of cardiac valve disease unspecified Essential hypertension, benign S/P CABG x 4 Postsurgical aortocoronary bypass status Mixed hyperlipidemia Asthma Unspecified asthma GERD (gastroesophageal reflux disease) Esophageal reflux 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 artery disease involving [place] coronary artery without angina pectoris Gynecomastia- Primary [...] neoplasm of ovary [facility] Diagnosis Malignant neoplasm of esophagus, unspecified location (HCC) Pre-op exam Preoperative examination, unspecified 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 Essential hypertension, benign Mixed hyperlipidemia Coronary artery disease involving [place] coronary artery of [place] heart without angina pectoris Gastroesophageal reflux disease, unspecified whether esophagitis present Aortic valve stenosis, etiology of cardiac valve disease unspecified Essential hypertension, benign S/P CABG x 4 Postsurgical aortocoronary bypass status Mixed hyperlipidemia Asthma (HCC) Unspecified asthma GERD (gastroesophageal reflux disease) Esophageal reflux 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 artery disease involving [place] coronary artery without angina pectoris Dog scratch- Primary Other and unspecified superficial injury of other, multiple, and unspecified sites, without mention of infection Visit for wound check Encounter for other specified aftercare [facility] Diagnosis Malignant neoplasm of esophagus, unspecified location (HCC) Pre-op exam Preoperative examination, unspecified 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 Essential hypertension, benign Mixed hyperlipidemia Coronary artery disease involving [place] coronary artery of [place] heart without angina pectoris Gastroesophageal reflux disease, unspecified whether esophagitis present Aortic valve stenosis, etiology of cardiac valve disease unspecified Essential hypertension, benign S/P CABG x 4 Postsurgical aortocoronary bypass status Mixed hyperlipidemia Asthma (HCC) Unspecified asthma GERD (gastroesophageal reflux disease) Esophageal reflux 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 artery disease involving [place] coronary artery without angina pectoris Acute bilateral low back pain without sciatica- Primary Acute bilateral low back pain without sciatica [facility] Diagnosis Malignant neoplasm of esophagus, unspecified location (HCC) Pre-op exam Preoperative examination, unspecified 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 Essential hypertension, benign Mixed hyperlipidemia Coronary artery disease involving [place] coronary artery of [place] heart without angina pectoris Gastroesophageal reflux disease, unspecified whether esophagitis present Aortic valve stenosis, etiology of cardiac valve disease unspecified Essential hypertension, benign S/P CABG x 4 Postsurgical aortocoronary bypass status Mixed hyperlipidemia Asthma (HCC) Unspecified asthma GERD (gastroesophageal reflux disease) Esophageal reflux 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 artery disease involving [place] coronary artery without angina pectoris Acute bilateral low back pain without sciatica [facility] Diagnosis Malignant neoplasm of esophagus, unspecified location (HCC) Pre-op exam Preoperative examination, unspecified 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 Essential hypertension, benign Mixed hyperlipidemia Coronary artery disease involving [place] coronary artery of [place] heart without angina pectoris Gastroesophageal reflux disease, unspecified whether esophagitis present Aortic valve stenosis, etiology of cardiac valve disease unspecified Essential hypertension, benign S/P CABG x 4 Postsurgical aortocoronary bypass status Mixed hyperlipidemia Asthma (HCC) Unspecified asthma GERD (gastroesophageal reflux disease) Esophageal reflux 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 artery disease involving [place] coronary artery without angina pectoris Hyperprolactinemia (HCC)- Primary Other and unspecified anterior pituitary hyperfunction Abnormal FSH level Unspecified endocrine disorder High serum luteinizing hormone (LH) Hyperprolactinemia (HCC) Other and unspecified anterior pituitary hyperfunction Abnormal FSH level Unspecified endocrine disorder High serum luteinizing hormone (LH) [facility] Diagnosis Malignant neoplasm of esophagus, unspecified location (HCC) Pre-op exam Preoperative examination, unspecified 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 Essential hypertension, benign Mixed hyperlipidemia Coronary artery disease involving [place] coronary artery of [place] heart without angina pectoris Gastroesophageal reflux disease, unspecified whether esophagitis present Aortic valve stenosis, etiology of cardiac valve disease unspecified Essential hypertension, benign S/P CABG x 4 Postsurgical aortocoronary bypass status Mixed hyperlipidemia Asthma (HCC) Unspecified asthma GERD (gastroesophageal reflux disease) Esophageal reflux 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 artery disease involving [place] coronary artery without angina pectoris Hyperprolactinemia (HCC) Other and unspecified anterior pituitary hyperfunction Abnormal FSH level Unspecified endocrine disorder High serum luteinizing hormone (LH) [facility] Diagnosis Malignant neoplasm of esophagus, unspecified location (HCC) Pre-op exam Preoperative examination, unspecified 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 Essential hypertension, benign Mixed hyperlipidemia Coronary artery disease involving [place] coronary artery of [place] heart without angina pectoris Gastroesophageal reflux disease, unspecified whether esophagitis present Aortic valve stenosis, etiology of cardiac valve disease unspecified Essential hypertension, benign S/P CABG x 4 Postsurgical aortocoronary bypass status Mixed hyperlipidemia Asthma (HCC) Unspecified asthma GERD (gastroesophageal reflux disease) Esophageal reflux 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 artery disease involving [place] coronary artery without angina pectoris Skin tear of left forearm without complication, initial encounter- Primary [facility] Diagnosis Malignant neoplasm of esophagus, unspecified location (HCC) Pre-op exam Preoperative examination, unspecified 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 Essential hypertension, benign Mixed hyperlipidemia Coronary artery disease involving [place] coronary artery of [place] heart without angina pectoris Gastroesophageal reflux disease, unspecified whether esophagitis present Aortic valve stenosis, etiology of cardiac valve disease unspecified Essential hypertension, benign S/P CABG x 4 Postsurgical aortocoronary bypass status Mixed hyperlipidemia Asthma (HCC) Unspecified asthma GERD (gastroesophageal reflux disease) Esophageal reflux 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 artery disease involving [place] coronary artery without angina pectoris History of cerebral infarction- Primary Transient ischemic attack (TIA), and cerebral infarction without residual deficits Gynecomastia Hypertrophy of breast documented in this encounter [facility] note* Diagnosis Malignant neoplasm of esophagus, unspecified location (HCC) Pre-op exam Preoperative examination, unspecified 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 Essential hypertension, benign Mixed hyperlipidemia Coronary artery disease involving [place] coronary artery of [place] heart without angina pectoris Gastroesophageal reflux disease, unspecified whether esophagitis present Aortic valve stenosis, etiology of cardiac valve disease unspecified Essential hypertension, benign S/P CABG x 4 Postsurgical aortocoronary bypass status Mixed hyperlipidemia Asthma (HCC) Unspecified asthma GERD (gastroesophageal reflux disease) Esophageal reflux 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 artery disease involving [place] coronary artery without angina pectoris Gynecomastia- Primary Hypertrophy of breast Elevated prolactin level Unspecified endocrine disorder Follicle stimulating hormone excess Other and unspecified anterior pituitary hyperfunction Abnormal pituitary luteinizing hormone (LH) [facility] Diagnosis Malignant neoplasm of esophagus, unspecified location (HCC) Pre-op exam Preoperative examination, unspecified 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 Essential hypertension, benign Mixed hyperlipidemia Coronary artery disease involving [place] coronary artery of [place] heart without angina pectoris Gastroesophageal reflux disease, unspecified whether esophagitis present Aortic valve stenosis, etiology of cardiac valve disease unspecified Essential hypertension, benign S/P CABG x 4 Postsurgical aortocoronary bypass status Mixed hyperlipidemia Asthma (HCC) Unspecified asthma GERD (gastroesophageal reflux disease) Esophageal reflux 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 artery disease involving [place] coronary artery without angina pectoris Essential hypertension, benign- Primary Mixed hyperlipidemia Coronary artery disease involving [place] coronary artery of [place] heart without angina pectoris Esophageal adenocarcinoma (HCC) [...] specified intestinal malabsorption [facility] Diagnosis Malignant neoplasm of esophagus, unspecified location (HCC) Pre-op exam Preoperative examination, unspecified 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 Essential hypertension, benign Mixed hyperlipidemia Coronary artery disease involving [place] coronary artery of [place] heart without angina pectoris Gastroesophageal reflux disease, unspecified whether esophagitis present Aortic valve stenosis, etiology of cardiac valve disease unspecified Essential hypertension, benign S/P CABG x 4 Postsurgical aortocoronary bypass status Mixed hyperlipidemia Asthma (HCC) Unspecified asthma GERD (gastroesophageal reflux disease) Esophageal reflux 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 artery disease involving [place] coronary artery without angina pectoris Lumbar back pain Lumbago [facility] Diagnosis Malignant neoplasm of esophagus, unspecified location (HCC) Pre-op exam Preoperative examination, unspecified 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 Essential hypertension, benign Mixed hyperlipidemia Coronary artery disease involving [place] coronary artery of [place] heart without angina pectoris Gastroesophageal reflux disease, unspecified whether esophagitis present Aortic valve stenosis, etiology of cardiac valve disease unspecified Essential hypertension, benign S/P CABG x 4 Postsurgical aortocoronary bypass status Mixed hyperlipidemia Asthma (HCC) Unspecified asthma GERD (gastroesophageal reflux disease) Esophageal reflux 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 artery disease involving [place] coronary artery without angina pectoris Compression fracture of L5 vertebra with routine healing, subsequent encounter- Primary [facility] Diagnosis Malignant neoplasm of esophagus, unspecified location (HCC) Pre-op exam Preoperative examination, unspecified Malignant neoplasm of lower third of esophagus (HCC) Malignant neoplasm of lower third of esophagus Essential hypertension, benign Mixed hyperlipidemia Coronary artery disease involving [place] coronary artery of [place] heart without angina pectoris Gastroesophageal reflux disease, unspecified whether esophagitis present Aortic valve stenosis, etiology of cardiac valve disease unspecified Essential hypertension, benign S/P CABG x 4 Postsurgical aortocoronary bypass status Mixed hyperlipidemia Asthma (HCC) Unspecified asthma GERD (gastroesophageal reflux disease) Esophageal reflux 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 artery disease involving [place] coronary artery without angina pectoris Gynecomastia Hypertrophy of breast Elevated prolactin level Unspecified endocrine disorder Follicle stimulating hormone excess Other and unspecified anterior pituitary hyperfunction [facility] Diagnosis Malignant neoplasm of esophagus, unspecified location (HCC) Pre-op exam Preoperative examination, unspecified Malignant neoplasm of lower third of esophagus (HCC) Malignant neoplasm of lower third of esophagus Essential hypertension, benign Mixed hyperlipidemia Coronary artery disease involving [place] coronary artery of [place] heart without angina pectoris Gastroesophageal reflux disease, unspecified whether esophagitis present Aortic valve stenosis, etiology of cardiac valve disease unspecified Essential hypertension, benign S/P CABG x 4 Postsurgical aortocoronary bypass status Mixed hyperlipidemia Asthma (HCC) Unspecified asthma GERD (gastroesophageal reflux disease) Esophageal reflux 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 artery disease involving [place] 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 documented in this encounter [facility] note* Diagnosis Malignant neoplasm of esophagus, unspecified location (HCC) Pre-op exam Preoperative examination, unspecified Malignant neoplasm of lower third of esophagus (HCC) Malignant neoplasm of lower third of esophagus Essential hypertension, benign Mixed hyperlipidemia Coronary artery disease involving [place] coronary artery of [place] heart without angina pectoris Gastroesophageal reflux disease, unspecified whether esophagitis present Aortic valve stenosis, etiology of cardiac valve disease unspecified Essential hypertension, benign S/P CABG x 4 Postsurgical aortocoronary bypass status Mixed hyperlipidemia Asthma (HCC) Unspecified asthma GERD (gastroesophageal reflux disease) Esophageal reflux 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 artery disease involving [place] coronary artery without angina pectoris Malignant neoplasm of lower third of esophagus (HCC)- Primary Malignant neoplasm of lower third of esophagus Compression fx, lumbar spine, closed, initial encounter ([facility]) Collapsed vertebra, not elsewhere classified, lumbar region, initial encounter for fracture ([facility]) documented in this encounter [facility] note* Diagnosis Malignant neoplasm of esophagus, unspecified location (HCC) Pre-op exam Preoperative examination, unspecified Malignant neoplasm of lower third of esophagus (HCC) Malignant neoplasm of lower third of esophagus Essential hypertension, benign Mixed hyperlipidemia Coronary artery disease involving [place] coronary artery of [place] heart without angina pectoris Gastroesophageal reflux disease, unspecified whether esophagitis present Aortic valve stenosis, etiology of cardiac valve disease unspecified Essential hypertension, benign S/P CABG x 4 Postsurgical aortocoronary bypass status Mixed hyperlipidemia Asthma (HCC) Unspecified asthma GERD (gastroesophageal reflux disease) Esophageal reflux 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 artery disease involving [place] coronary artery without angina pectoris Chronic sinusitis, unspecified location- Primary Seasonal allergic rhinitis, unspecified trigger documented in this encounter [facility] for referral (narrative)* Outpatient Procedure (Routine) - Authorized Specialty Diagnoses / Procedures Referred By Contac t Referred To Contact [facility] Diagnoses Malignant neoplasm of lower third of esophagus (HCC) Procedures EGD DIAGNOSTIC ESOPHAGOGASTRODUODENOSC OPY TRANSORAL DIAGNOSTIC Renetta Radford MD [address] [place] [address] [facility] [address] [place] [address] Referral ID Status Reason Start Date Expiration Date Visits Requested Visits Authorized [id number] Authorized Auto-Generat ed Referral 08/04/2021 08/04/2022 1 1 [facility] for referral (narrative)* Outpatient Procedure (Routine) - Authorized Specialty Diagnoses / Procedures Referred By Contac t Referred To Contact [facility] Diagnoses Malignant neoplasm of lower third of esophagus (HCC) Procedures EGD DIAGNOSTIC ESOPHAGOGASTRODUODENOSC OPY TRANSORAL DIAGNOSTIC Queta Gleason, ADALGISA.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 [address] [place] [address] [facility] [address] [place], [place] [id number] Referral ID Status Reason Start Date Expiration Date Visits Requested Visits Authorized [id number] Authorized Auto-Generat ed Referral 09/07/2021 09/07/2022 1 1 [facility] for referral (narrative)* Outpatient Procedure (Routine) - Closed Specialty Diagnoses / Procedures Referred By Contac t Referred To Contact [facility] Diagnoses Malignant neoplasm of lower third of esophagus (HCC) Procedures EGD DIAGNOSTIC ESOPHAGOGASTRODUODENOSC OPY TRANSORAL DIAGNOSTIC Renetta Radford MD [address] [place] [address] [facility] [address] [place] [address] Referral ID Status Reason Start Date Expiration Date V isits Requested Visits Authorized [id number] Closed Auto-Generate d Referral 08/04/2021 08/04/2022 1 1 [facility] for referral (narrative)* Outpatient Procedure (Routine) - Pending Review Specialty Diagnoses / Procedures Referred By Contac t Referred To Contact [facility] Diagnoses Malignant neoplasm of lower third of esophagus (HCC) Procedures EGD DIAGNOSTIC ESOPHAGOGASTRODUODENOSC OPY TRANSORAL DIAGNOSTIC Queta Gleason APRN.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 [address] [place] [address] [facility] [address] [place] [address] Referral ID Status Reason Start Date Expiration Date Visits Requested Visits Authorized [id number] Pending Review Auto-Generat ed Referral 11/09/2021 11/09/2022 1 1 [facility] for referral (narrative)* Outpatient Procedure (Routine) - Closed Specialty Diagnoses / Procedures Referred By Contac t Referred To Contact [facility] Diagnoses Malignant neoplasm of lower third of esophagus (HCC) Procedures EGD DIAGNOSTIC ESOPHAGOGASTRODUODENOSC OPY TRANSORAL DIAGNOSTIC Queta Gleason APRN.CNP [address] [place] [address] [id number] [place] [address] Referral ID Status Reason Start Date Expiration Date V isits Requested Visits Authorized [id number] Closed Auto-Generate d Referral 09/07/2021 09/07/2022 1 1 [facility] for referral (narrative)* Diagnostic Procedure Only (Urgent) - Closed Specialty Diagnoses / Procedures Referred By Contac t Referred To Contact XR IMAGING Diagnoses Rib injury Procedures XR RIBS/CHEST 3V AP RIB/OBLS/CXR RIGHT RADEX RIBS UNI W/POSTEROANT CH MINIMUM 3 VIEWS Yaw Smith APRN.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 [address] [place] [address] X[facility] Referral ID Status Reason Start Date Expiration Date V isits Requested Visits Authorized [id number] Closed Auto-Generate d Referral 06/09/2022 07/09/2023 1 1 [facility] for referral (narrative)* Outpatient Procedure (Routine) - Closed Specialty Diagnoses / Procedures Referred By Contac t Referred To Contact [facility] Diagnoses Malignant neoplasm of lower third of esophagus (HCC) Procedures EGD DIAGNOSTIC ESOPHAGOGASTRODUODENOSC OPY TRANSORAL DIAGNOSTIC Queta Hunt APRN.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 [address] [place] [address] [facility] [address] [place] [address] Referral ID Status Reason Start Date Expiration Date V isits Requested Visits Authorized [id number] Closed Auto-Generate d Referral 11/09/2021 11/09/2022 1 1 [facility] for referral (narrative)* Diagnostic Procedure Only (Routine) - Authorized Specialty Diagnoses / Procedures Referred By Contac t Referred To Contact [facility] Diagnoses Malignant neoplasm of lower third of esophagus (HCC) Procedures NM PET/CT SKULL-THIGH SUBSEQUENT PET IMAGING CT ATTENUATION SKULL BASE MID-THIGH Richard Jenkins DO [address] [place] [address] [facility] [address] [id number] Referral ID Status Reason Start Date Expiration Date Visits Requested Visits Authorized [id number] Authorized Auto-Generat ed Referral 04/27/2024 1 1 [facility] for referral (narrative)* Outpatient Procedure (Routine) - Pending Review Specialty Diagnoses / Procedures Referred By Contac pamela Referred To Contact [facility] Diagnoses Malignant neoplasm of esophagus, unspecified location (HCC) Procedures EGD - THERAPEUTIC, EUS, OR TUBE INTERVENTIONS EDG US EXAM SURGICAL ALTER STOM DUODENUM/JEJUNUM Amos Rangel MD [address] [place] [address] [facility] [address] [place] [address] Referral ID Status Reason Start Date Expiration Date Visits Requested Visits Authorized [id number] Pending Review Auto-Generat ed Referral 05/28/2023 05/28/2024 1 1 [facility] for referral (narrative)* Outpatient Procedure (Routine) - Closed Specialty Diagnoses / Procedures [facility] Diagnoses Malignant neoplasm of esophagus, unspecified location (HCC) Procedures EGD - THERAPEUTIC, EUS, OR TUBE INTERVENTIONS EDG US EXAM SURGICAL ALTER STOM DUODENUM/JEJUNUM Amos Rangel MD [address] [place] [address] [facility] [address] [place] [address] Referral ID Status Reason Start Date Expiration Date V isits Requested Visits Authorized [id number] Closed Auto-Generate d Referral 05/28/2023 05/28/2024 1 1 [facility] for referral (narrative)* Diagnostic Procedure Only (Routine) - Authorized Specialty Diagnoses / Procedures [facility] Referred To Contact [facility] Diagnoses RUQ pain Nausea Procedures NM HEPATOBILIARY W EF AND/OR RX HEPATOBIL SYST IMAG INC GB W/PHARMA INTERVENJ Usha Mcgovern PA-C [address] [place] [address] [facility] [address] [id number] Referral ID Status Reason Start Date Expiration Date Visits Requested Visits Authorized [id number] Authorized Auto-Generat ed Referral 06/19/2023 07/18/2024 1 1 * Diagnostic Procedure Only (Routine) - Authorized Specialty Diagnoses / Procedures [facility] Referred To Contact [facility] IM[facility] Diagnoses RUQ pain Nausea Procedures US ABD RIGHT UPPER QUADRANT US ABDOMINAL REAL TIME W/IMAGE LIMITED Usha Mcgovern PA-C [address] [place] [address] [facility] [place] [address] Referral ID Status Reason Start Date Expiration Date Visits Requested Visits Authorized [id number] Authorized Auto-Generat ed Referral 06/19/2023 07/18/2024 1 1 [facility] for referral (narrative)* Diagnostic Procedure Only (Routine) - Closed Specialty Diagnoses / Procedures Referred By Contac t Referred To Contact [facility] Diagnoses RUQ pain Nausea Procedures NM HEPATOBILIARY W EF AND/OR RX HEPATOBIL SYST IMAG INC GB W/PHARMA INTERVENJ Usha Mcgovern PA-C [address] [place] [address] [facility] [address] [place] [address] Referral ID Status Reason Start Date Expiration Date V isits Requested Visits Authorized [id number] Closed Auto-Generate d Referral 06/19/2023 07/18/2024 1 1 [facility] for referral (narrative)* Outpatient Procedure (Routine) - Authorized Specialty Diagnoses / Procedures Referred By Contac t Referred To Contact [facility] Diagnoses Pleural effusion TRIPATHI (dyspnea on exertion) Procedures ECHO ECHO TTHRC R-T 2D W/WOM-MODE COMPL SPEC&COLR D Usha Mcgovern PA-C [address] [place] [address] [facility] [address] [place] [address] Referral ID Status Reason Start Date Expiration Date Visits Requested Visits Authorized [id number] Authorized Auto-Generat ed Referral 09/13/2023 09/12/2024 1 1 [facility] for referral (narrative)* Diagnostic Procedure Only (Urgent) - Closed Specialty Diagnoses / Procedures Referred By Contac t Referred To Contact XR IMAGING Diagnoses Rib injury Procedures XR RIBS/CHEST 3V AP RIB/OBLS/CXR RIGHT RADEX RIBS UNI W/POSTEROANT CH MINIMUM 3 VIEWS Yaw Smith, ADALGISA.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 [address] [place] [address] [place] [address] Referral ID Status Reason Start Date Expiration Date V isits Requested Visits Authorized [id number] Closed Auto-Generate d Referral 06/09/2022 07/09/2023 1 1 [facility] for referral (narrative)* Diagnostic Procedure Only (Routine) - Authorized Specialty Diagnoses / Procedures Referred By Contac t Referred To Contact XR IMAGING Diagnoses Malignant neoplasm of lower third of esophagus (HCC) Early satiety Nausea Procedures XR GI SMALL BOWEL FOLLOW-THRU RADIOLOGIC SMALL INTESTINE FOLLOW-THROUGH STUDY Richard Jenkins, DO [address] [place] [address] [place] [address] Referral ID Status Reason Start Date Expiration Date Visits Requested Visits Authorized [id number] Authorized Auto-Generat ed Referral 01/15/2024 02/13/2025 1 1 * Diagnostic Procedure Only (Routine) - Authorized Specialty Diagnoses / Procedures Referred By Contac t Referred To Contact XR IMAGING Diagnoses Malignant neoplasm of lower third of esophagus (HCC) Early satiety Nausea Procedures XR UPPER GI SINGLE CONTRAST RADIOLOGIC EXAM UPR GI TRC SINGLE CONTRAST STUDY Richard Jenkins DO [address] [place] [address] [place] [address] Referral ID Status Reason Start Date Expiration Date Visits Requested Visits Authorized [id number] Authorized Auto-Generat ed Referral 01/15/2024 02/13/2025 1 1 * MRI/CT (Routine) - Authorized Specialty Diagnoses / Procedures Referred By Contac t Referred To Contact CT IMAGING Diagnoses Malignant neoplasm of lower third of esophagus (HCC) Procedures CT ABD/PEL WO IVCON CT ABD & PELVIS W/O CONTRAST Richard Jenkins DO [address] [place] [address] [place] [address] Referral ID Status Reason Start Date Expiration Date Visits Requested Visits Authorized [id number] Authorized Auto-Generat ed Referral 01/15/2024 02/13/2025 1 1 * MRI/CT (Routine) - Authorized Specialty Diagnoses / Procedures Referred By Contac t Referred To Contact CT IMAGING Diagnoses Malignant neoplasm of lower third of esophagus (HCC) Procedures CT CHEST WO IVCON DIAGNOSTIC COMPUTED TOMOGRAPHY THORAX W/O CNTRST Richard Jenkins, DO [address] [place] [address] [place] [address] Referral ID Status Reason Start Date Expiration Date Visits Requested Visits Authorized [id number] Authorized Auto-Generat ed Referral 01/15/2024 02/13/2025 1 1 [facility] for referral (narrative)* Diagnostic Procedure Only (Routine) - Closed Specialty Diagnoses / Procedures Referred By Contac t Referred To Contact XR IMAGING Diagnoses Malignant neoplasm of lower third of esophagus (HCC) Early satiety Nausea Procedures XR UPPER GI SINGLE CONTRAST RADIOLOGIC EXAM UPR GI TRC SINGLE CONTRAST STUDY Richard Jenkins, DO [address] [place] [address] [place] [address] Referral ID Status Reason Start Date Expiration Date V isits Requested Visits Authorized [id number] Closed Auto-Generate d Referral 01/15/2024 02/13/2025 1 1 [facility] for referral (narrative)* Diagnostic Procedure Only (Routine) - Closed Specialty Diagnoses / Procedures Referred By Contac t Referred To Contact XR IMAGING Diagnoses Malignant neoplasm of lower third of esophagus (HCC) Early satiety Nausea Procedures XR GI SMALL BOWEL FOLLOW-THRU RADIOLOGIC SMALL INTESTINE FOLLOW-THROUGH STUDY Richard Jenkins, DO [address] [place] [address] [place] [address] Referral ID Status Reason Start Date Expiration Date V isits Requested Visits Authorized [id number] Closed Auto-Generate d Referral 01/15/2024 02/13/2025 1 1 [facility] for referral (narrative)No reason for referral information availableWMagruder [facility] Work Phone[facility] Narrative* Outpatient Procedure (Routine) - Closed Specialty Diagnoses / Procedures Referred By Contac t Referred To Contact [facility] Diagnoses Malignant neoplasm of lower third of esophagus (HCC) Procedures EGD DIAGNOSTIC ESOPHAGOGASTRODUODENOSC OPY TRANSORAL DIAGNOSTIC Renetta Radford MD [address] [place] [address] [facility] [address] [place] [address] Referral ID Status Reason Start Date Expiration Date V isits Requested Visits Authorized [id number] Closed Auto-Generate d Referral 08/04/2021 08/04/2022 1 1 [facility] for visit Narrative* Outpatient Procedure (Routine) - Closed Specialty Diagnoses / Procedures Referred By Contac t Referred To Contact [facility] Diagnoses Malignant neoplasm of lower third of esophagus (HCC) Procedures EGD DIAGNOSTIC ESOPHAGOGASTRODUODENOSC OPY TRANSORAL DIAGNOSTIC Queta Gleason, COMPANY DANCER.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 [address] [place] [address] [facility] [address] [place] [address] Referral ID Status Reason Start Date Expiration Date V isits Requested Visits Authorized [id number] Closed Auto-Generate d Referral 09/07/2021 09/07/2022 1 1 [facility] for visit Narrative* Outpatient Procedure (Routine) - Closed Specialty Diagnoses / Procedures Referred By Contac t Referred To Contact [facility] Diagnoses Malignant neoplasm of lower third of esophagus (HCC) Procedures EGD DIAGNOSTIC ESOPHAGOGASTRODUODENOSC OPY TRANSORAL DIAGNOSTIC Queta Hunt , COMPANY DANCER.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 [address] [place] [address] [facility] [address] [place] [address] Referral ID Status Reason Start Date Expiration Date V isits Requested Visits Authorized [id number] Closed Auto-Generate d Referral 11/09/2021 11/09/2022 1 1 [facility] for visit Narrative* Outpatient Procedure (Routine) - Closed Specialty Diagnoses / Procedures [facility] Diagnoses Malignant neoplasm of esophagus, unspecified location (HCC) Procedures EGD - THERAPEUTIC, EUS, OR TUBE INTERVENTIONS EDG US EXAM SURGICAL ALTER STOM DUODENUM/JEJUNUM Amos Rangel MD [address] [address] [facility] [address] [place] [address] Referral ID Status Reason Start Date Expiration Date V isits Requested Visits Authorized [id number] Closed Auto-Generate d Referral 05/28/2023 05/28/2024 1 1 [facility] for visit Narrative* Diagnostic Procedure Only (Urgent) - Closed Specialty Diagnoses / Procedures [facility] Referred To Contact XR IMAGING Diagnoses Rib injury Procedures XR RIBS/CHEST 3V AP RIB/OBLS/CXR RIGHT RADEX RIBS UNI W/POSTEROANT CH MINIMUM 3 VIEWS Yaw Smith APRN.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 [address] [place] [address] [place] [address] Referral ID Status Reason Start Date Expiration Date V isits Requested Visits Authorized [id number] Closed Auto-Generate d Referral 06/09/2022 07/09/2023 1 1 [facility] for visit Narrative* Diagnostic Procedure Only (Routine) - Closed Specialty Diagnoses / Procedures [facility] Referred To Contact XR IMAG[facility] Diagnoses Malignant neoplasm of lower third of esophagus (HCC) Early satiety Nausea Procedures XR UPPER GI SINGLE CONTRAST RADIOLOGIC EXAM UPR GI TRC SINGLE CONTRAST STUDY Richard Jenkins, DO [address] [place] [address] [place] [address] Referral ID Status Reason Start Date Expiration Date V isits Requested Visits Authorized [id number] Closed Auto-Generate d Referral 01/15/2024 02/13/2025 1 1 [facility] for visit Narrative* Diagnostic Procedure Only (Routine) - Closed Specialty Diagnoses / Procedures Referred By Contac t Referred To Contact XR IMAGING Diagnoses Malignant neoplasm of lower third of esophagus (HCC) Early satiety Nausea Procedures XR GI SMALL BOWEL FOLLOW-THRU RADIOLOGIC SMALL INTESTINE FOLLOW-THROUGH STUDY Richard Jenkins, DO [address] [place] [address] [place] [address] Referral ID Status Reason Start Date Expiration Date V isits Requested Visits Authorized [id number] Closed Auto-Generate d Referral 01/15/2024 02/13/2025 1 1 [facility] for visit Narrative* Diagnostic Procedure Only (Urgent) - Closed Specialty Diagnoses / Procedures Referred By Contac t Referred To Contact XR IMAGING Diagnoses Acute bilateral low back pain without sciatica Procedures XR LUMBAR GENERAL 3V AP/LAT/L5-S1 RADEX SPINE LUMBOSACRAL 2/3 VIEWS Steve Youssef PA-C [address] [facility] [address] [place] [address] Phone: tel: fax: [place] [address] Referral ID Status Reason Start Date Expiration Date V isits Requested Visits Authorized [id number] Closed Auto-Generate d Referral 08/20/2024 09/19/2025 1 1 [facility] for visit Narrative* MRI/CT (Routine) - Closed Specialty Diagnoses / Procedures Referred By Contac t Referred To Contact MR IMAGING Diagnoses Hyperprolactinemia (HCC) Abnormal FSH level High serum luteinizing hormone (LH) Procedures MRI BRAIN WO IVCON MRI BRAIN BRAIN STEM W/O CONTRAST MATERIAL Stacia Adame MD [address] [place] [address] Phone: tel: fax: [place] [address] Referral ID Status Reason Start Date Expiration Date V isits Requested Visits Authorized [id number] Closed Auto-Generate d Referral 07/11/2024 08/10/2025 1 1 [facility] for visit Narrative* Diagnostic Procedure Only (Routine) - Closed Specialty Diagnoses / Procedures Referred By Contac t Referred To Contact XR IMAGING Diagnoses Lumbar back pain Procedures XR LUMBAR PARS DEFECT 4V AP/LAT/BOTH OBL RADEX SPINE LUMBOSACRAL MINIMUM 4 VIEWS Usha Mcgovern PA-C [address] [place] [address] Phone: tel: fax: [place] [address] Referral ID Status Reason Start Date Expiration Date V isits Requested Visits Authorized [id number] Closed Auto-Generate d Referral 10/07/2024 11/06/2025 1 1 [facility]/CT (Routine) - Closed Specialty Diagnoses / Procedures Referred By Nahomy t Referred To Contact CT IMAGING Diagnoses Malignant neoplasm of lower third of esophagus (HCC) Procedures CT ABD/PEL WO IVCON CT ABD & PELVIS W/O CONTRAST Richard Jenkins, DO [address] [place] [address] Phone: tel: fax: [place] [address] Referral ID Status Reason Start Date Expiration Date V isits Requested Visits Authorized [id number] Closed Auto-Generate d Referral 05/02/2024 06/01/2025 1 1 [facility] Summary Purpose Family History No Family History Records Found Relationship Condition Age at Onset Recorded Date/T sary father Cardiac disease Unknown Myocardial infarction Unknown Hypertension Unknown brother Hypertension Unknown sister Cardiac disease Unknown Advance Directives No Advanced Directives Records FoundDocuments on File Type Date Recorded Patient Homicide Investigator Expl anation Advance Directives and Living Will Power of [employer] Latest Code Status on File Code Status Date Activated Date Inactivated Comments Full Code 07/25/2013 5:08 PM 07/26/2013 1:38 PM Documents on File Type Date Recorded Patient Homicide Investigator Expl anation ACP-Advance Directive ACP-Power of [employer] Latest Code Status on File Code Status Date Activated Date Inactivated Comments Full Code 03/03/2019 8:59 AM 03/04/2019 3:48 PM Full Code 03/03/2019 5:32 AM 03/03/2019 8:33 AM Full Code 07/25/2013 5:08 PM 07/26/2013 1:38 PM Documents on File Type Date Recorded Patient Homicide Investigator Expl anation Advance Directives and Living Will Power of [employer] Latest Code Status on File Code Status [...] Documents on File Type Date Recorded Patient Homicide Investigator Expl anation Advance Directive(s) 11/16/2020 1:24 PM [...] Documents on File Type Date Recorded Patient Homicide Investigator Expl anation Advance Directive(s) 11/16/2020 1:24 PM [...] No June 23, 2022 4:34pm Power of [employer] No June 23 4:34pm Advance Directive Response Recorded Date/ Time Advance Directives No June 27 6:19pm Advance Directive Response Recorded Date/ Time Living Will Yes June 02 11:59am Do you have a Healthcare Pow er of [place] [employer]? Yes June 02, 2024 11:59am Name of Medical Power of [employer] LACHO YARELY SLAUGHTERDodie June 02, 2024 11:59am Advance Directives No June 27 6:19pm Advance Directive Response Recorded Date/ Time Living Will Yes June 02 11:59am Do you have a Healthcare Pow er of [employer]er? Yes June 02, 2024 11:59am Name of Medical Power of [employer] LACHO FROST June 02, 2024 11:59am Do you have a Healthcare Pow er of [employer]er? Yes September 17, 2024 10:04pm Advance Directives No June 27 6:19pm Advance Directive Response Recorded Date/ Time Living Will Yes June 02 11:59am Do you have a Healthcare Power of [employer]er? Yes June 02, 2024 11:59am Name of Medical Power of [employer] LACHO BECERRASHIMONDANY June 02, 2024 11:59am Do you have a Healthcare Power of [employer]er? Yes September 17, 2024 10:04pm Advance Directives on File Yes October 15, 2024 9:21am Living Will Yes October 15, 2024 9 :21am Do you have a Healthcare Power of [employer]er? Yes October 15, 2024 9:21am Name of Medical Power of [employer] Camryn Baird- Daughter October 15, 2024 9:21am Advance Directives Yes October 15 9:21am Advance Directive Response Recorded Date/ Time Do you have a Healthcare Pow er of [employer] Loader? Yes September 17, 2024 10:04pm Advance Directives on File Yes October 15, 2024 9:21am Living Will Yes October 15, 2024 9 :21am Do you have a Healthcare Pow er of [employer] Loader? Yes Sujatha 9th, 2025 9:21am Name of Medical Power of [employer] Camryn Baird- Daughter October 15, 2024 9:21am Advance Directives Yes October 15 9:21am Hospital Course Note EMERGENCY DEPARTMENT DISCHAR GE SUMMARY PATIENT NAME:JACOB LANDA MRN: [id number] AGE: 63 Years SEX: Male PHONE:[phone] DOS: 12/30/2018 10:54:00 : 1955 ATTENDING PHYSICIAN:Yessi [...] summary document to your follow up appointments. [facility] 01/01/19 13:40 [address] [place]. [address] PATIENT INFORMATION Name: JACOB LANDA [address]: [address] [place] [id number] Age: 63 Years Phone: [phone] : 1955 12:00 MRN: [id number] Sex: Male Race: White Ethnicity: Not Hispan/Lat Admitted From: Non-[facility] Medical Service: Internal Medicine Nurse Unit/Bed: (CHRIS ORELLANA [id number] Admit Date: 12/31/2018 10:30 PCP: Physician, PCP [...] MD DATE OF ADMISSION: 12/30/2018 ADMITTING ATTENDING: [facility]. PRIMARY CARE PHYSICIAN: Unknown. REASON FOR ADMISSION: Right-sided chest pain with diaphoresis and nausea. HISTORY OF PRESENT ILLNESS: The patient is a pleasant 63-year-old male who gets most of his healthcare done in the [facility] as he lives in [place], [place]. His motion picture critic in [place] has been caring for him for some time. The patient has previously underwent coronary artery bypass grafting and subsequently also underwent 3 stents to his LAD for a non-ST elevation myocardial infarction that he had similar symptoms when he presented with that. He is also apparently being evaluated for aortic stenosis and possible TAVR for 2019. His motion picture critic name is Dr. Noland. Today, he started [...] MD DATE OF ADMISSION: 12/30/2018 ADMITTING ATTENDING: [facility]. PRIMARY CARE PHYSICIAN: Unknown. REASON FOR ADMISSION: Right-sided chest pain with diaphoresis and nausea. HISTORY OF PRESENT ILLNESS: The patient is a pleasant 63-year-old male who gets most of his healthcare done in the [facility] as he lives in [place], [place]. His motion picture critic in [place] has been caring for him for some time. The patient has previously underwent coronary artery bypass grafting and subsequently also underwent 3 stents to his LAD for a non-ST elevation myocardial infarction that he had similar symptoms when he presented with that. He is also apparently being evaluated for aortic stenosis and possible TAVR for 2019. His motion picture critic name is Dr. Noland. Today, he started having a significant amount of chest pressure and chest pain on the right side of his chest that he describes as a cramping. It started about 9:30 this morning when he had come to a trailer y (more content not included)... Note Patient: JACOB LANDA MRN: ([id number] Age: 63 years Sex: Male : 1955 [...] Pelvis W Contrast Tyshawn Magallanes MD [address] [place] [address] Status Reason Specialty Diagnoses / Procedures Referre d By Contact Referred To Contact Closed Cardiology Diagnoses S/P TAVR (transcatheter aortic valve replacement) Aortic valve stenosis, etiology of cardiac valve disease unspecified Procedures Echo 2D Doppler Color 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 [employer] - 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 [address] [place] [address] Status Reason Specialty Diagnoses / Procedures Referre d By Contact Referred To Contact Closed Cardiology Diagnoses Severe aortic stenosis Coronary artery disease involving [place] coronary artery of [place] heart without angina pectoris Essential hypertension Obesity (BMI 30.0-34.9) Procedures ECHO Complete 2D W Doppler W Color 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 APRN - 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 [address] [address] Specialty Diagnoses / Procedures Referred By Contac t Referred To Contact CT IMAGING Diagnoses Malignant neoplasm of lower third of esophagus (HCC) Pleural effusion Procedures CT CHEST W IVCON DIAGNOSTIC COMPUTED TOMOGRAPHY THORAX W/CONTRAST Mari Akhtar APRN.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 [address] [place] [address] Ct Imaging Referral ID Status Reason Start Date Expiration Date V isits Requested Visits Authorized [id number] Closed Auto-Generate d Referral 08/24/2021 09/23/2022 1 1 Specialty Diagnoses / Procedures Referred By Contac t Referred To Contact CT IMAGING Diagnoses Malignant neoplasm of lower third of esophagus (HCC) Procedures CT ABD/PEL W IVCON CT ABD & PELVIS W/CONTRAST Mari Akhtar APRN.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 [address] [place] [address] Ct Imaging Referral ID Status Reason Start Date Expiration Date V isits Requested Visits Authorized [id number] Closed Auto-Generate d Referral 08/24/2021 09/23/2022 1 1 Specialty Diagnoses / Procedures Referred By Contac t Referred To Contact CT IMAGING Diagnoses Malignant neoplasm of lower third of esophagus (HCC) Procedures CT CHEST W IVCON DIAGNOSTIC COMPUTED TOMOGRAPHY THORAX W/CONTRAST Richard Jenkins, DO [address] [place] [address] Ct Imaging Referral ID Status Reason Start Date Expiration Date Visits Requested Visits Authorized [id number] Authorized Auto-Generat ed Referral 11/02/2021 12/02/2022 1 1 Specialty Diagnoses / Procedures Referred By Contac t Referred To Contact CT IMAGING Diagnoses Malignant neoplasm of lower third of esophagus (HCC) Procedures CT ABD/PEL W IVCON CT ABD & PELVIS W/CONTRAST Richard Jenkins, DO [address] [place] [address] Ct Imaging Referral ID Status Reason Start Date Expiration Date Visits Requested Visits Authorized [id number] Authorized Auto-Generat ed Referral 11/02/2021 12/02/2022 1 1 Referral ID Status Reason Start Date Expiration Date Visits Requested Visits Authorized [id number] Authorized Auto-Generat ed Referral 08/22/2022 09/21/2023 1 1 Referral ID Status Reason Start Date Expiration Date Visits Requested Visits Authorized [id number] Authorized Auto-Generat ed Referral 08/22/2022 09/21/2023 1 1 Specialty Diagnoses / Procedures Referred By Contac t Referred To Contact CT IMAGING Diagnoses Malignant neoplasm of lower third of esophagus (HCC) Procedures CT CHEST W IVCON DIAGNOSTIC COMPUTED TOMOGRAPHY THORAX W/CONTRAST Richard Jenkins, DO [address] [place] [address] [place] [address] Referral ID Status Reason Start Date Expiration Date V isits Requested Visits Authorized [id number] Closed Auto-Generate d Referral 11/02/2021 12/02/2022 1 1 Specialty Diagnoses / Procedures Referred By Contac t Referred To Contact CT IMAGING Diagnoses Malignant neoplasm of lower third of esophagus (HCC) Procedures CT ABD/PEL W IVCON CT ABD & PELVIS W/CONTRAST Richard Jenkins, DO [address] [place] [address] [place] [address] Referral ID Status Reason Start Date Expiration Date V isits Requested Visits Authorized [id number] Closed Auto-Generate d Referral 11/02/2021 12/02/2022 1 1 Specialty Diagnoses / Procedures Referred By Contac t Referred To Contact CT IMAGING Diagnoses Malignant neoplasm of lower third of esophagus (HCC) Procedures CT CHEST W IVCON DIAGNOSTIC COMPUTED TOMOGRAPHY THORAX W/CONTRAST Mari Akhtar, ADALGISA.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 [address] [place] [address] [place] [address] Referral ID Status Reason Start Date Expiration Date V isits Requested Visits Authorized [id number] Closed Auto-Generate d Referral 02/22/2022 03/24/2023 1 1 Specialty Diagnoses / Procedures Referred By Contac t Referred To Contact CT IMAGING Diagnoses Malignant neoplasm of lower third of esophagus (HCC) Procedures CT ABD/PEL W IVCON CT ABD & PELVIS W/CONTRAST Mari Akhtar, ADALGISA.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 [address] [place] [address] [place] [address] Referral ID Status Reason Start Date Expiration Date V isits Requested Visits Authorized [id number] Closed Auto-Generate d Referral 02/22/2022 03/24/2023 1 1 Specialty Diagnoses / Procedures Referred By Contac t Referred To Contact MR IMAGING Diagnoses Esophageal adenocarcinoma (HCC) Compression fracture of thoracic vertebra, unspecified thoracic vertebral level, initial encounter (HCC) Procedures MRI THORACIC SPINE WO/W IVCON MRI SPINAL CANAL THORACIC W/O & W/CONTR MATRL Richard Jenkins, DO [address] [place] [address] [place] [address] Referral ID Status Reason Start Date Expiration Date Visits Requested Visits Authorized [id number] Authorized Auto-Generat ed Referral 3 03/22/2024 1 1 Specialty Diagnoses / Procedures Referred By Contac t Referred To Contact [facility] [place] Diagnoses Closed wedge compression fracture of T10 vertebra with routine healing, subsequent encounter Procedures CONSULT TO [facility]/OUTPATIENT [facility] 60 MINUTES Richard Jenkins DO [address] [place] [address] Referral ID Status Reason Start Date Expiration Date Visits Requested Visits Authorized [id number] Authorized PCP Requested Referral 06/18/2023 06/17/2024 1 [...] 45 MINS Jesus Manuel Resendiz PA-C [address] [place] [address] [facility] [address] [address] Referral ID Status Reason Start Date Expiration Date Visits Requested Visits Authorized [id number] Authorized PCP Requested Referral Auto-Generate d Referral 07/12/2023 07/11/2024 99 99 Referral ID Status Reason Start Date Expiration Date Visits Requested Visits Authorized [id number] Authorized Auto-Generat ed Referral 07/19/2023 08/17/2024 1 1 Referral ID Status Reason Start Date Expiration Date Visits Requested Visits Authorized [id number] Authorized Auto-Generat ed Referral 07/19/2023 08/17/2024 1 1 Specialty Diagnoses / Procedures Referred By Contac t Referred To Contact MR IMAGING Diagnoses Pathological fracture of thoracic vertebra, initial encounter Procedures MRI THORACIC SPINE WO/W IVCON MRI SPINAL CANAL THORACIC W/O & W/CONTR MATRL Richard Jenkins DO [address] [place] [address] [place] [address] Referral ID Status Reason Start Date Expiration Date Visits Requested Visits Authorized [id number] Authorized Auto-Generat ed Referral 08/10/2023 09/08/2024 1 1 Referral ID Status Reason Start Date Expiration Date V isits Requested Visits Authorized [id number] Closed Auto-Generate d Referral 08/10/2023 09/08/2024 1 1 Specialty Diagnoses / Procedures Referred By Contac t Referred To Contact Endocrinology Diagnoses Mixed hyperlipidemia Coronary artery disease involving [place] coronary artery of [place] heart without angina pectoris Procedures CONSULT TO ENDOCRINOLOGY OFFICE/OUTPATIENT [facility] 60 MINUTES Yaw Singh MD [address] [place] [address] Referral ID Status Reason Start Date Expiration Date Visits Requested Visits Authorized [id number] Authorized PCP Requested Referral 10/08/2023 10/07/2024 1 1 Specialty Diagnoses / Procedures Referred By Contac t Referred To Contact MR IMAGING Diagnoses Malignant neoplasm of lower third of esophagus (HCC) Closed wedge compression fracture of T10 vertebra with delayed healing, subsequent encounter Procedures MRI THORACIC SPINE WO/W IVCON MRI SPINAL CANAL THORACIC W/O & W/CONTR MATRL Richard Jenkins, DO [address] [place] [address] [place] [address] Referral ID Status Reason Start Date Expiration Date Visits Requested Visits Authorized [id number] Authorized Auto-Generat ed Referral 05/02/2024 06/01/2025 1 1 Specialty Diagnoses / Procedures Referred By Contac t Referred To Contact CT IMAGING Diagnoses Malignant neoplasm of lower third of esophagus (HCC) Procedures CT ABD/PEL WO IVCON CT ABD & PELVIS W/O CONTRAST Richard Jenkins, DO [address] [place] [address] [place] [address] Referral ID Status Reason Start Date Expiration Date Visits Requested Visits Authorized [id number] Authorized Auto-Generat ed Referral 05/02/2024 06/01/2025 1 1 Specialty Diagnoses / Procedures Referred By Contac t Referred To Contact CT IMAGING Diagnoses Malignant neoplasm of lower third of esophagus (HCC) Procedures CT CHEST WO IVCON DIAGNOSTIC COMPUTED TOMOGRAPHY THORAX W/O CNTRST Richard Jenkins, DO [address] [place] [address] [place] [address] Referral ID Status Reason Start Date Expiration Date Visits Requested Visits Authorized [id number] Authorized Auto-Generat ed Referral 05/02/2024 06/01/2025 1 1 Referral ID Status Reason Start Date Expiration Date V isits Requested Visits Authorized [id number] Closed Auto-Generate d Referral 05/02/2024 06/01/2025 1 1 Discharge Instructions * Instructions* 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, 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 DATE CREATED AUTHOR AUTHOR'S ORGANIZ ATION 01/11/2019 [facility] DATE CREATED AUTHOR AUTHOR'S ORGANIZ ATION 03/05/2020 [facility] DATE CREATED AUTHOR AUTHOR'S ORGANIZ ATION 09/01/2020 [facility] ([place]) DATE CREATED AUTHOR AUTHOR'S ORGANIZ ATION 05/07/2021 [facility] DATE CREATED AUTHOR AUTHOR'S ORGANIZ ATION 04/10/2023 [facility] DATE CREATED AUTHOR AUTHOR'S ORGANIZ ATION 04/19/2023 [facility] DATE CREATED AUTHOR AUTHOR'S ORGANIZ ATION 02/03/2024 [facility] DATE CREATED AUTHOR AUTHOR'S ORGANIZ ATION 02/14/2025 [facility] DATE CREATED AUTHOR AUTHOR'S ORGANIZ ATION 02/18/2025 [facility] Source Comments (unrecognize d section and content) In the event this informatio n is protected by the Federal Confidentiality of Alcohol and Drug Abuse Patient Records regulations: The Federal rules restrict any use of the information to criminally investigate or prosecute any alcohol or drug abuse patient.[facility] the event this information is protected by the Federal Confidentiality of Alcohol and Drug Abuse Patient Records regulations: The Federal rules restrict any use of the information to criminally investigate or prosecute any alcohol or drug abuse patient.[facility] the event this information is protected by the Federal Confidentiality of Alcohol and Drug Abuse Patient Records regulations: The Federal rules restrict any use of the information to criminally investigate or prosecute any alcohol or drug abuse patient.[facility] the event this information is protected by the Federal Confidentiality of Alcohol and Drug Abuse Patient Records regulations: The Federal rules restrict any use of the information to criminally investigate or prosecute any alcohol or drug abuse patient.[facility] the event this information is protected by the Federal Confidentiality of Alcohol and Drug Abuse Patient Records regulations: The Federal rules restrict any use of the information to criminally investigate or prosecute any alcohol or drug abuse patient.[facility] the event this information is protected by the Federal Confidentiality of Alcohol and Drug Abuse Patient Records regulations: The Federal rules restrict any use of the information to criminally investigate or prosecute any alcohol or drug abuse patient.[facility] the event this information is protected by the Federal Confidentiality of Alcohol and Drug Abuse Patient Records regulations: The Federal rules restrict any use of the information to criminally investigate or prosecute any alcohol or drug abuse patient.[facility] the event this information is protected by the Federal Confidentiality of Alcohol and Drug Abuse Patient Records regulations: The Federal rules restrict any use of the information to criminally investigate or prosecute any alcohol or drug abuse patient.[facility] the event this information is protected by the Federal Confidentiality of Alcohol and Drug Abuse Patient Records regulations: The Federal rules restrict any use of the information to criminally investigate or prosecute any alcohol or drug abuse patient.[facility] the event this information is protected by the Federal Confidentiality of Alcohol and Drug Abuse Patient Records regulations: The Federal rules restrict any use of the information to criminally investigate or prosecute any alcohol or drug abuse patient.[facility] the event this information is protected by the Federal Confidentiality of Alcohol and Drug Abuse Patient Records regulations: The Federal rules restrict any use of the information to criminally investigate or prosecute any alcohol or drug abuse patient.[facility] the event this information is protected by the Federal Confidentiality of Alcohol and Drug Abuse Patient Records regulations: The Federal rules restrict any use of the information to criminally investigate or prosecute any alcohol or drug abuse patient.[facility] the event this information is protected by the Federal Confidentiality of Alcohol and Drug Abuse Patient Records regulations: The Federal rules restrict any use of the information to criminally investigate or prosecute any alcohol or drug abuse patient.[facility] the event this information is protected by the Federal Confidentiality of Alcohol and Drug Abuse Patient Records regulations: The Federal rules restrict any use of the information to criminally investigate or prosecute any alcohol or drug abuse patient.[facility] the event this information is protected by the Federal Confidentiality of Alcohol and Drug Abuse Patient Records regulations: The Federal rules restrict any use of the information to criminally investigate or prosecute any alcohol or drug abuse patient.[facility] the event this information is protected by the Federal Confidentiality of Alcohol and Drug Abuse Patient Records regulations: The Federal rules restrict any use of the information to criminally investigate or prosecute any alcohol or drug abuse patient.[facility] the event this information is protected by the Federal Confidentiality of Alcohol and Drug Abuse Patient Records regulations: The Federal rules restrict any use of the information to criminally investigate or prosecute any alcohol or drug abuse patient.[facility] HospitalIn the event this information is protected by the Federal Confidentiality of Alcohol and Drug Abuse Patient Records regulations: The Federal rules restrict any use of the information to criminally investigate or prosecute any alcohol or drug abuse patient.[facility] HospitalIn the event this information is protected by the Federal Confidentiality of Alcohol and Drug Abuse Patient Records regulations: The Federal rules restrict any use of the information to criminally investigate or prosecute any alcohol or drug abuse patient.[facility] HospitalIn the event this information is protected by the Federal Confidentiality of Alcohol and Drug Abuse Patient Records regulations: The Federal rules restrict any use of the information to criminally investigate or prosecute any alcohol or drug abuse patient.[facility] HospitalIn the event this information is protected by the Federal Confidentiality of Alcohol and Drug Abuse Patient Records regulations: The Federal rules restrict any use of the information to criminally investigate or prosecute any alcohol or drug abuse patient.[facility] HospitalIn the event this information is protected by the Federal Confidentiality of Alcohol and Drug Abuse Patient Records regulations: The Federal rules restrict any use of the information to criminally investigate or prosecute any alcohol or drug abuse patient.[facility] HospitalIn the event this information is protected by the Federal Confidentiality of Alcohol and Drug Abuse Patient Records regulations: The Federal rules restrict any use of the information to criminally investigate or prosecute any alcohol or drug abuse patient.[facility] HospitalIn the event this information is protected by the Federal Confidentiality of Alcohol and Drug Abuse Patient Records regulations: The Federal rules restrict any use of the information to criminally investigate or prosecute any alcohol or drug abuse patient.[facility] HospitalIn the event this information is protected by the Federal Confidentiality of Alcohol and Drug Abuse Patient Records regulations: The Federal rules restrict any use of the information to criminally investigate or prosecute any alcohol or drug abuse patient.[facility] HospitalIn the event this information is protected by the Federal Confidentiality of Alcohol and Drug Abuse Patient Records regulations: The Federal rules restrict any use of the information to criminally investigate or prosecute any alcohol or drug abuse patient.[facility] HospitalIn the event this information is protected by the Federal Confidentiality of Alcohol and Drug Abuse Patient Records regulations: The Federal rules restrict any use of the information to criminally investigate or prosecute any alcohol or drug abuse patient.[facility] HospitalIn the event this information is protected by the Federal Confidentiality of Alcohol and Drug Abuse Patient Records regulations: The Federal rules restrict any use of the information to criminally investigate or prosecute any alcohol or drug abuse patient.[facility] HospitalIn the event this information is protected by the Federal Confidentiality of Alcohol and Drug Abuse Patient Records regulations: The Federal rules restrict any use of the information to criminally investigate or prosecute any alcohol or drug abuse patient.[facility] HospitalIn the event this information is protected by the Federal Confidentiality of Alcohol and Drug Abuse Patient Records regulations: The Federal rules restrict any use of the information to criminally investigate or prosecute any alcohol or drug abuse patient.[facility] HospitalIn the event this information is protected by the Federal Confidentiality of Alcohol and Drug Abuse Patient Records regulations: The Federal rules restrict any use of the information to criminally investigate or prosecute any alcohol or drug abuse patient.[facility] HospitalIn the event this information is protected by the Federal Confidentiality of Alcohol and Drug Abuse Patient Records regulations: The Federal rules restrict any use of the information to criminally investigate or prosecute any alcohol or drug abuse patient.[facility] HospitalIn the event this information is protected by the Federal Confidentiality of Alcohol and Drug Abuse Patient Records regulations: The Federal rules restrict any use of the information to criminally investigate or prosecute any alcohol or drug abuse patient.[facility] HospitalIn the event this information is protected by the Federal Confidentiality of Alcohol and Drug Abuse Patient Records regulations: The Federal rules restrict any use of the information to criminally investigate or prosecute any alcohol or drug abuse patient.[facility] HospitalIn the event this information is protected by the Federal Confidentiality of Alcohol and Drug Abuse Patient Records regulations: The Federal rules restrict any use of the information to criminally investigate or prosecute any alcohol or drug abuse patient.[facility] HospitalIn the event this information is protected by the Federal Confidentiality of Alcohol and Drug Abuse Patient Records regulations: The Federal rules restrict any use of the information to criminally investigate or prosecute any alcohol or drug abuse patient.[facility] HospitalIn the event this information is protected by the Federal Confidentiality of Alcohol and Drug Abuse Patient Records regulations: The Federal rules restrict any use of the information to criminally investigate or prosecute any alcohol or drug abuse patient.[facility] HospitalIn the event this information is protected by the Federal Confidentiality of Alcohol and Drug Abuse Patient Records regulations: The Federal rules restrict any use of the information to criminally investigate or prosecute any alcohol or drug abuse patient.[facility] HospitalIn the event this information is protected by the Federal Confidentiality of Alcohol and Drug Abuse Patient Records regulations: The Federal rules restrict any use of the information to criminally investigate or prosecute any alcohol or drug abuse patient.[facility] HospitalIn the event this information is protected by the Federal Confidentiality of Alcohol and Drug Abuse Patient Records regulations: The Federal rules restrict any use of the information to criminally investigate or prosecute any alcohol or drug abuse patient.[facility] HospitalIn the event this information is protected by the Federal Confidentiality of Alcohol and Drug Abuse Patient Records regulations: The Federal rules restrict any use of the information to criminally investigate or prosecute any alcohol or drug abuse patient.[facility] HospitalIn the event this information is protected by the Federal Confidentiality of Alcohol and Drug Abuse Patient Records regulations: The Federal rules restrict any use of the information to criminally investigate or prosecute any alcohol or drug abuse patient.[facility] HospitalIn the event this information is protected by the Federal Confidentiality of Alcohol and Drug Abuse Patient Records regulations: The Federal rules restrict any use of the information to criminally investigate or prosecute any alcohol or drug abuse patient.[facility] HospitalIn the event this information is protected by the Federal Confidentiality of Alcohol and Drug Abuse Patient Records regulations: The Federal rules restrict any use of the information to criminally investigate or prosecute any alcohol or drug abuse patient.[facility] HospitalIn the event this information is protected by the Federal Confidentiality of Alcohol and Drug Abuse Patient Records regulations: The Federal rules restrict any use of the information to criminally investigate or prosecute any alcohol or drug abuse patient.[facility] HospitalIn the event this information is protected by the Federal Confidentiality of Alcohol and Drug Abuse Patient Records regulations: The Federal rules restrict any use of the information to criminally investigate or prosecute any alcohol or drug abuse patient.[facility] HospitalIn the event this information is protected by the Federal Confidentiality of Alcohol and Drug Abuse Patient Records regulations: The Federal rules restrict any use of the information to criminally investigate or prosecute any alcohol or drug abuse patient.[facility] HospitalIn the event this information is protected by the Federal Confidentiality of Alcohol and Drug Abuse Patient Records regulations: The Federal rules restrict any use of the information to criminally investigate or prosecute any alcohol or drug abuse patient.[facility] HospitalIn the event this information is protected by the Federal Confidentiality of Alcohol and Drug Abuse Patient Records regulations: The Federal rules restrict any use of the information to criminally investigate or prosecute any alcohol or drug abuse patient.[facility] HospitalIn the event this information is protected by the Federal Confidentiality of Alcohol and Drug Abuse Patient Records regulations: The Federal rules restrict any use of the information to criminally investigate or prosecute any alcohol or drug abuse patient.[facility] HospitalIn the event this information is protected by the Federal Confidentiality of Alcohol and Drug Abuse Patient Records regulations: The Federal rules restrict any use of the information to criminally investigate or prosecute any alcohol or drug abuse patient.[facility] HospitalIn the event this information is protected by the Federal Confidentiality of Alcohol and Drug Abuse Patient Records regulations: The Federal rules restrict any use of the information to criminally investigate or prosecute any alcohol or drug abuse patient.[facility] HospitalIn the event this information is protected by the Federal Confidentiality of Alcohol and Drug Abuse Patient Records regulations: The Federal rules restrict any use of the information to criminally investigate or prosecute any alcohol or drug abuse patient.[facility] HospitalIn the event this information is protected by the Federal Confidentiality of Alcohol and Drug Abuse Patient Records regulations: The Federal rules restrict any use of the information to criminally investigate or prosecute any alcohol or drug abuse patient.[facility] HospitalIn the event this information is protected by the Federal Confidentiality of Alcohol and Drug Abuse Patient Records regulations: The Federal rules restrict any use of the information to criminally investigate or prosecute any alcohol or drug abuse patient.[facility] HospitalIn the event this information is protected by the Federal Confidentiality of Alcohol and Drug Abuse Patient Records regulations: The Federal rules restrict any use of the information to criminally investigate or prosecute any alcohol or drug abuse patient.[facility] HospitalIn the event this information is protected by the Federal Confidentiality of Alcohol and Drug Abuse Patient Records regulations: The Federal rules restrict any use of the information to criminally investigate or prosecute any alcohol or drug abuse patient.[facility] HospitalIn the event this information is protected by the Federal Confidentiality of Alcohol and Drug Abuse Patient Records regulations: The Federal rules restrict any use of the information to criminally investigate or prosecute any alcohol or drug abuse patient.[facility] HospitalIn the event this information is protected by the Federal Confidentiality of Alcohol and Drug Abuse Patient Records regulations: The Federal rules restrict any use of the information to criminally investigate or prosecute any alcohol or drug abuse patient.[facility] HospitalIn the event this information is protected by the Federal Confidentiality of Alcohol and Drug Abuse Patient Records regulations: The Federal rules restrict any use of the information to criminally investigate or prosecute any alcohol or drug abuse patient.[facility] HospitalIn the event this information is protected by the Federal Confidentiality of Alcohol and Drug Abuse Patient Records regulations: The Federal rules restrict any use of the information to criminally investigate or prosecute any alcohol or drug abuse patient.[facility] HospitalIn the event this information is protected by the Federal Confidentiality of Alcohol and Drug Abuse Patient Records regulations: The Federal rules restrict any use of the information to criminally investigate or prosecute any alcohol or drug abuse patient.[facility] HospitalIn the event this information is protected by the Federal Confidentiality of Alcohol and Drug Abuse Patient Records regulations: The Federal rules restrict any use of the information to criminally investigate or prosecute any alcohol or drug abuse patient.[facility] HospitalIn the event this information is protected by the Federal Confidentiality of Alcohol and Drug Abuse Patient Records regulations: The Federal rules restrict any use of the information to criminally investigate or prosecute any alcohol or drug abuse patient.[facility] HospitalIn the event this information is protected by the Federal Confidentiality of Alcohol and Drug Abuse Patient Records regulations: The Federal rules restrict any use of the information to criminally investigate or prosecute any alcohol or drug abuse patient.[facility] HospitalIn the event this information is protected by the Federal Confidentiality of Alcohol and Drug Abuse Patient Records regulations: The Federal rules restrict any use of the information to criminally investigate or prosecute any alcohol or drug abuse patient.[facility] HospitalIn the event this information is protected by the Federal Confidentiality of Alcohol and Drug Abuse Patient Records regulations: The Federal rules restrict any use of the information to criminally investigate or prosecute any alcohol or drug abuse patient.[facility] HospitalIn the event this information is protected by the Federal Confidentiality of Alcohol and Drug Abuse Patient Records regulations: The Federal rules restrict any use of the information to criminally investigate or prosecute any alcohol or drug abuse patient.[facility] HospitalIn the event this information is protected by the Federal Confidentiality of Alcohol and Drug Abuse Patient Records regulations: The Federal rules restrict any use of the information to criminally investigate or prosecute any alcohol or drug abuse patient.[facility] HospitalIn the event this information is protected by the Federal Confidentiality of Alcohol and Drug Abuse Patient Records regulations: The Federal rules restrict any use of the information to criminally investigate or prosecute any alcohol or drug abuse patient.[facility] HospitalIn the event this information is protected by the Federal Confidentiality of Alcohol and Drug Abuse Patient Records regulations: The Federal rules restrict any use of the information to criminally investigate or prosecute any alcohol or drug abuse patient.[facility] HospitalIn the event this information is protected by the Federal Confidentiality of Alcohol and Drug Abuse Patient Records regulations: The Federal rules restrict any use of the information to criminally investigate or prosecute any alcohol or drug abuse patient.[facility] HospitalIn the event this information is protected by the Federal Confidentiality of Alcohol and Drug Abuse Patient Records regulations: The Federal rules restrict any use of the information to criminally investigate or prosecute any alcohol or drug abuse patient.[facility] HospitalIn the event this information is protected by the Federal Confidentiality of Alcohol and Drug Abuse Patient Records regulations: The Federal rules restrict any use of the information to criminally investigate or prosecute any alcohol or drug abuse patient.[facility] HospitalIn the event this information is protected by the Federal Confidentiality of Alcohol and Drug Abuse Patient Records regulations: The Federal rules restrict any use of the information to criminally investigate or prosecute any alcohol or drug abuse patient.[facility] HospitalIn the event this information is protected by the Federal Confidentiality of Alcohol and Drug Abuse Patient Records regulations: The Federal rules restrict any use of the information to criminally investigate or prosecute any alcohol or drug abuse patient.[facility] HospitalIn the event this information is protected by the Federal Confidentiality of Alcohol and Drug Abuse Patient Records regulations: The Federal rules restrict any use of the information to criminally investigate or prosecute any alcohol or drug abuse patient.[facility] HospitalIn the event this information is protected by the Federal Confidentiality of Alcohol and Drug Abuse Patient Records regulations: The Federal rules restrict any use of the information to criminally investigate or prosecute any alcohol or drug abuse patient.[facility] HospitalIn the event this information is protected by the Federal Confidentiality of Alcohol and Drug Abuse Patient Records regulations: The Federal rules restrict any use of the information to criminally investigate or prosecute any alcohol or drug abuse patient.[facility] HospitalIn the event this information is protected by the Federal Confidentiality of Alcohol and Drug Abuse Patient Records regulations: The Federal rules restrict any use of the information to criminally investigate or prosecute any alcohol or drug abuse patient.[facility] HospitalIn the event this information is protected by the Federal Confidentiality of Alcohol and Drug Abuse Patient Records regulations: The Federal rules restrict any use of the information to criminally investigate or prosecute any alcohol or drug abuse patient.[facility] HospitalIn the event this information is protected by the Federal Confidentiality of Alcohol and Drug Abuse Patient Records regulations: The Federal rules restrict any use of the information to criminally investigate or prosecute any alcohol or drug abuse patient.[facility] HospitalIn the event this information is protected by the Federal Confidentiality of Alcohol and Drug Abuse Patient Records regulations: The Federal rules restrict any use of the information to criminally investigate or prosecute any alcohol or drug abuse patient.[facility] HospitalIn the event this information is protected by the Federal Confidentiality of Alcohol and Drug Abuse Patient Records regulations: The Federal rules restrict any use of the information to criminally investigate or prosecute any alcohol or drug abuse patient.[facility] HospitalIn the event this information is protected by the Federal Confidentiality of Alcohol and Drug Abuse Patient Records regulations: The Federal rules restrict any use of the information to criminally investigate or prosecute any alcohol or drug abuse patient.[facility] HospitalIn the event this information is protected by the Federal Confidentiality of Alcohol and Drug Abuse Patient Records regulations: The Federal rules restrict any use of the information to criminally investigate or prosecute any alcohol or drug abuse patient.[facility] HospitalIn the event this information is protected by the Federal Confidentiality of Alcohol and Drug Abuse Patient Records regulations: The Federal rules restrict any use of the information to criminally investigate or prosecute any alcohol or drug abuse patient.[facility] HospitalIn the event this information is protected by the Federal Confidentiality of Alcohol and Drug Abuse Patient Records regulations: The Federal rules restrict any use of the information to criminally investigate or prosecute any alcohol or drug abuse patient.[facility] HospitalIn the event this information is protected by the Federal Confidentiality of Alcohol and Drug Abuse Patient Records regulations: The Federal rules restrict any use of the information to criminally investigate or prosecute any alcohol or drug abuse patient.[facility] HospitalIn the event this information is protected by the Federal Confidentiality of Alcohol and Drug Abuse Patient Records regulations: The Federal rules restrict any use of the information to criminally investigate or prosecute any alcohol or drug abuse patient.[facility] HospitalIn the event this information is protected by the Federal Confidentiality of Alcohol and Drug Abuse Patient Records regulations: The Federal rules restrict any use of the information to criminally investigate or prosecute any alcohol or drug abuse patient.[facility] HospitalIn the event this information is protected by the Federal Confidentiality of Alcohol and Drug Abuse Patient Records regulations: The Federal rules restrict any use of the information to criminally investigate or prosecute any alcohol or drug abuse patient.[facility] HospitalIn the event this information is protected by the Federal Confidentiality of Alcohol and Drug Abuse Patient Records regulations: The Federal rules restrict any use of the information to criminally investigate or prosecute any alcohol or drug abuse patient.[facility] HospitalIn the event this information is protected by the Federal Confidentiality of Alcohol and Drug Abuse Patient Records regulations: The Federal rules restrict any use of the information to criminally investigate or prosecute any alcohol or drug abuse patient.[facility] HospitalIn the event this information is protected by the Federal Confidentiality of Alcohol and Drug Abuse Patient Records regulations: The Federal rules restrict any use of the information to criminally investigate or prosecute any alcohol or drug abuse patient.[facility] HospitalIn the event this information is protected by the Federal Confidentiality of Alcohol and Drug Abuse Patient Records regulations: The Federal rules restrict any use of the information to criminally investigate or prosecute any alcohol or drug abuse patient.[facility] HospitalIn the event this information is protected by the Federal Confidentiality of Alcohol and Drug Abuse Patient Records regulations: The Federal rules restrict any use of the information to criminally investigate or prosecute any alcohol or drug abuse patient.[facility] HospitalIn the event this information is protected by the Federal Confidentiality of Alcohol and Drug Abuse Patient Records regulations: The Federal rules restrict any use of the information to criminally investigate or prosecute any alcohol or drug abuse patient.[facility] HospitalIn the event this information is protected by the Federal Confidentiality of Alcohol and Drug Abuse Patient Records regulations: The Federal rules restrict any use of the information to criminally investigate or prosecute any alcohol or drug abuse patient.[facility] HospitalIn the event this information is protected by the Federal Confidentiality of Alcohol and Drug Abuse Patient Records regulations: The Federal rules restrict any use of the information to criminally investigate or prosecute any alcohol or drug abuse patient.[facility] HospitalIn the event this information is protected by the Federal Confidentiality of Alcohol and Drug Abuse Patient Records regulations: The Federal rules restrict any use of the information to criminally investigate or prosecute any alcohol or drug abuse patient.[facility] HospitalIn the event this information is protected by the Federal Confidentiality of Alcohol and Drug Abuse Patient Records regulations: The Federal rules restrict any use of the information to criminally investigate or prosecute any alcohol or drug abuse patient.[facility] HospitalIn the event this information is protected by the Federal Confidentiality of Alcohol and Drug Abuse Patient Records regulations: The Federal rules restrict any use of the information to criminally investigate or prosecute any alcohol or drug abuse patient.[facility] HospitalIn the event this information is protected by the Federal Confidentiality of Alcohol and Drug Abuse Patient Records regulations: The Federal rules restrict any use of the information to criminally investigate or prosecute any alcohol or drug abuse patient.[facility] HospitalIn the event this information is protected by the Federal Confidentiality of Alcohol and Drug Abuse Patient Records regulations: The Federal rules restrict any use of the information to criminally investigate or prosecute any alcohol or drug abuse patient.[facility] HospitalIn the event this information is protected by the Federal Confidentiality of Alcohol and Drug Abuse Patient Records regulations: The Federal rules restrict any use of the information to criminally investigate or prosecute any alcohol or drug abuse patient.[facility] HospitalIn the event this information is protected by the Federal Confidentiality of Alcohol and Drug Abuse Patient Records regulations: The Federal rules restrict any use of the information to criminally investigate or prosecute any alcohol or drug abuse patient.[facility] HospitalIn the event this information is protected by the Federal Confidentiality of Alcohol and Drug Abuse Patient Records regulations: The Federal rules restrict any use of the information to criminally investigate or prosecute any alcohol or drug abuse patient.[facility] HospitalIn the event this information is protected by the Federal Confidentiality of Alcohol and Drug Abuse Patient Records regulations: The Federal rules restrict any use of the information to criminally investigate or prosecute any alcohol or drug abuse patient.[facility] HospitalIn the event this information is protected by the Federal Confidentiality of Alcohol and Drug Abuse Patient Records regulations: The Federal rules restrict any use of the information to criminally investigate or prosecute any alcohol or drug abuse patient.[facility] HospitalIn the event this information is protected by the Federal Confidentiality of Alcohol and Drug Abuse Patient Records regulations: The Federal rules restrict any use of the information to criminally investigate or prosecute any alcohol or drug abuse patient.[facility] HospitalIn the event this information is protected by the Federal Confidentiality of Alcohol and Drug Abuse Patient Records regulations: The Federal rules restrict any use of the information to criminally investigate or prosecute any alcohol or drug abuse patient.[facility] HospitalIn the event this information is protected by the Federal Confidentiality of Alcohol and Drug Abuse Patient Records regulations: The Federal rules restrict any use of the information to criminally investigate or prosecute any alcohol or drug abuse patient.[facility] HospitalIn the event this information is protected by the Federal Confidentiality of Alcohol and Drug Abuse Patient Records regulations: The Federal rules restrict any use of the information to criminally investigate or prosecute any alcohol or drug abuse patient.[facility] HospitalIn the event this information is protected by the Federal Confidentiality of Alcohol and Drug Abuse Patient Records regulations: The Federal rules restrict any use of the information to criminally investigate or prosecute any alcohol or drug abuse patient.[facility] HospitalIn the event this information is protected by the Federal Confidentiality of Alcohol and Drug Abuse Patient Records regulations: The Federal rules restrict any use of the information to criminally investigate or prosecute any alcohol or drug abuse patient.[facility] HospitalIn the event this information is protected by the Federal Confidentiality of Alcohol and Drug Abuse Patient Records regulations: The Federal rules restrict any use of the information to criminally investigate or prosecute any alcohol or drug abuse patient.[facility] HospitalIn the event this information is protected by the Federal Confidentiality of Alcohol and Drug Abuse Patient Records regulations: The Federal rules restrict any use of the information to criminally investigate or prosecute any alcohol or drug abuse patient.[facility] HospitalIn the event this information is protected by the Federal Confidentiality of Alcohol and Drug Abuse Patient Records regulations: The Federal rules restrict any use of the information to criminally investigate or prosecute any alcohol or drug abuse patient.[facility] HospitalIn the event this information is protected by the Federal Confidentiality of Alcohol and Drug Abuse Patient Records regulations: The Federal rules restrict any use of the information to criminally investigate or prosecute any alcohol or drug abuse patient.[facility] HospitalIn the event this information is protected by the Federal Confidentiality of Alcohol and Drug Abuse Patient Records regulations: The Federal rules restrict any use of the information to criminally investigate or prosecute any alcohol or drug abuse patient.[facility] HospitalIn the event this information is protected by the Federal Confidentiality of Alcohol and Drug Abuse Patient Records regulations: The Federal rules restrict any use of the information to criminally investigate or prosecute any alcohol or drug abuse patient.[facility] HospitalIn the event this information is protected by the Federal Confidentiality of Alcohol and Drug Abuse Patient Records regulations: The Federal rules restrict any use of the information to criminally investigate or prosecute any alcohol or drug abuse patient.[facility] HospitalIn the event this information is protected by the Federal Confidentiality of Alcohol and Drug Abuse Patient Records regulations: The Federal rules restrict any use of the information to criminally investigate or prosecute any alcohol or drug abuse patient.[facility] HospitalIn the event this information is protected by the Federal Confidentiality of Alcohol and Drug Abuse Patient Records regulations: The Federal rules restrict any use of the information to criminally investigate or prosecute any alcohol or drug abuse patient.[facility] HospitalIn the event this information is protected by the Federal Confidentiality of Alcohol and Drug Abuse Patient Records regulations: The Federal rules restrict any use of the information to criminally investigate or prosecute any alcohol or drug abuse patient.[facility] HospitalIn the event this information is protected by the Federal Confidentiality of Alcohol and Drug Abuse Patient Records regulations: The Federal rules restrict any use of the information to criminally investigate or prosecute any alcohol or drug abuse patient.[facility] HospitalIn the event this information is protected by the Federal Confidentiality of Alcohol and Drug Abuse Patient Records regulations: The Federal rules restrict any use of the information to criminally investigate or prosecute any alcohol or drug abuse patient.[facility] HospitalIn the event this information is protected by the Federal Confidentiality of Alcohol and Drug Abuse Patient Records regulations: The Federal rules restrict any use of the information to criminally investigate or prosecute any alcohol or drug abuse patient.[facility] HospitalIn the event this information is protected by the Federal Confidentiality of Alcohol and Drug Abuse Patient Records regulations: The Federal rules restrict any use of the information to criminally investigate or prosecute any alcohol or drug abuse patient.[facility] HospitalIn the event this information is protected by the Federal Confidentiality of Alcohol and Drug Abuse Patient Records regulations: The Federal rules restrict any use of the information to criminally investigate or prosecute any alcohol or drug abuse patient.[facility] HospitalIn the event this information is protected by the Federal Confidentiality of Alcohol and Drug Abuse Patient Records regulations: The Federal rules restrict any use of the information to criminally investigate or prosecute any alcohol or drug abuse patient.[facility] HospitalIn the event this information is protected by the Federal Confidentiality of Alcohol and Drug Abuse Patient Records regulations: The Federal rules restrict any use of the information to criminally investigate or prosecute any alcohol or drug abuse patient.[facility] HospitalIn the event this information is protected by the Federal Confidentiality of Alcohol and Drug Abuse Patient Records regulations: The Federal rules restrict any use of the information to criminally investigate or prosecute any alcohol or drug abuse patient.[facility] HospitalIn the event this information is protected by the Federal Confidentiality of Alcohol and Drug Abuse Patient Records regulations: The Federal rules restrict any use of the information to criminally investigate or prosecute any alcohol or drug abuse patient.[facility] HospitalIn the event this information is protected by the Federal Confidentiality of Alcohol and Drug Abuse Patient Records regulations: The Federal rules restrict any use of the information to criminally investigate or prosecute any alcohol or drug abuse patient.[facility] HospitalIn the event this information is protected by the Federal Confidentiality of Alcohol and Drug Abuse Patient Records regulations: The Federal rules restrict any use of the information to criminally investigate or prosecute any alcohol or drug abuse patient.[facility] HospitalIn the event this information is protected by the Federal Confidentiality of Alcohol and Drug Abuse Patient Records regulations: The Federal rules restrict any use of the information to criminally investigate or prosecute any alcohol or drug abuse patient.[facility] HospitalIn the event this information is protected by the Federal Confidentiality of Alcohol and Drug Abuse Patient Records regulations: The Federal rules restrict any use of the information to criminally investigate or prosecute any alcohol or drug abuse patient.[facility] HospitalIn the event this information is protected by the Federal Confidentiality of Alcohol and Drug Abuse Patient Records regulations: The Federal rules restrict any use of the information to criminally investigate or prosecute any alcohol or drug abuse patient.[facility] HospitalIn the event this information is protected by the Federal Confidentiality of Alcohol and Drug Abuse Patient Records regulations: The Federal rules restrict any use of the information to criminally investigate or prosecute any alcohol or drug abuse patient.[facility] HospitalIn the event this information is protected by the Federal Confidentiality of Alcohol and Drug Abuse Patient Records regulations: The Federal rules restrict any use of the information to criminally investigate or prosecute any alcohol or drug abuse patient.[facility] HospitalIn the event this information is protected by the Federal Confidentiality of Alcohol and Drug Abuse Patient Records regulations: The Federal rules restrict any use of the information to criminally investigate or prosecute any alcohol or drug abuse patient.[facility] HospitalIn the event this information is protected by the Federal Confidentiality of Alcohol and Drug Abuse Patient Records regulations: The Federal rules restrict any use of the information to criminally investigate or prosecute any alcohol or drug abuse patient.[facility] HospitalIn the event this information is protected by the Federal Confidentiality of Alcohol and Drug Abuse Patient Records regulations: The Federal rules restrict any use of the information to criminally investigate or prosecute any alcohol or drug abuse patient.[facility] HospitalIn the event this information is protected by the Federal Confidentiality of Alcohol and Drug Abuse Patient Records regulations: The Federal rules restrict any use of the information to criminally investigate or prosecute any alcohol or drug abuse patient.[facility] HospitalIn the event this information is protected by the Federal Confidentiality of Alcohol and Drug Abuse Patient Records regulations: The Federal rules restrict any use of the information to criminally investigate or prosecute any alcohol or drug abuse patient.[facility] HospitalIn the event this information is protected by the Federal Confidentiality of Alcohol and Drug Abuse Patient Records regulations: The Federal rules restrict any use of the information to criminally investigate or prosecute any alcohol or drug abuse patient.[facility] HospitalIn the event this information is protected by the Federal Confidentiality of Alcohol and Drug Abuse Patient Records regulations: The Federal rules restrict any use of the information to criminally investigate or prosecute any alcohol or drug abuse patient.[facility] HospitalIn the event this information is protected by the Federal Confidentiality of Alcohol and Drug Abuse Patient Records regulations: The Federal rules restrict any use of the information to criminally investigate or prosecute any alcohol or drug abuse patient.[facility] HospitalIn the event this information is protected by the Federal Confidentiality of Alcohol and Drug Abuse Patient Records regulations: The Federal rules restrict any use of the information to criminally investigate or prosecute any alcohol or drug abuse patient.[facility] HospitalIn the event this information is protected by the Federal Confidentiality of Alcohol and Drug Abuse Patient Records regulations: The Federal rules restrict any use of the information to criminally investigate or prosecute any alcohol or drug abuse patient.[facility] HospitalIn the event this information is protected by the Federal Confidentiality of Alcohol and Drug Abuse Patient Records regulations: The Federal rules restrict any use of the information to criminally investigate or prosecute any alcohol or drug abuse patient.[facility] HospitalIn the event this information is protected by the Federal Confidentiality of Alcohol and Drug Abuse Patient Records regulations: The Federal rules restrict any use of the information to criminally investigate or prosecute any alcohol or drug abuse patient.[facility] HospitalIn the event this information is protected by the Federal Confidentiality of Alcohol and Drug Abuse Patient Records regulations: The Federal rules restrict any use of the information to criminally investigate or prosecute any alcohol or drug abuse patient.[facility] HospitalIn the event this information is protected by the Federal Confidentiality of Alcohol and Drug Abuse Patient Records regulations: The Federal rules restrict any use of the information to criminally investigate or prosecute any alcohol or drug abuse patient.[facility] HospitalIn the event this information is protected by the Federal Confidentiality of Alcohol and Drug Abuse Patient Records regulations: The Federal rules restrict any use of the information to criminally investigate or prosecute any alcohol or drug abuse patient.[facility] HospitalIn the event this information is protected by the Federal Confidentiality of Alcohol and Drug Abuse Patient Records regulations: The Federal rules restrict any use of the information to criminally investigate or prosecute any alcohol or drug abuse patient.[facility] HospitalIn the event this information is protected by the Federal Confidentiality of Alcohol and Drug Abuse Patient Records regulations: The Federal rules restrict any use of the information to criminally investigate or prosecute any alcohol or drug abuse patient.[facility] HospitalIn the event this information is protected by the Federal Confidentiality of Alcohol and Drug Abuse Patient Records regulations: The Federal rules restrict any use of the information to criminally investigate or prosecute any alcohol or drug abuse patient.[facility] HospitalIn the event this information is protected by the Federal Confidentiality of Alcohol and Drug Abuse Patient Records regulations: The Federal rules restrict any use of the information to criminally investigate or prosecute any alcohol or drug abuse patient.[facility] HospitalIn the event this information is protected by the Federal Confidentiality of Alcohol and Drug Abuse Patient Records regulations: The Federal rules restrict any use of the information to criminally investigate or prosecute any alcohol or drug abuse patient.[facility] HospitalIn the event this information is protected by the Federal Confidentiality of Alcohol and Drug Abuse Patient Records regulations: The Federal rules restrict any use of the information to criminally investigate or prosecute any alcohol or drug abuse patient.[facility] HospitalIn the event this information is protected by the Federal Confidentiality of Alcohol and Drug Abuse Patient Records regulations: The Federal rules restrict any use of the information to criminally investigate or prosecute any alcohol or drug abuse patient.[facility] HospitalIn the event this information is protected by the Federal Confidentiality of Alcohol and Drug Abuse Patient Records regulations: The Federal rules restrict any use of the information to criminally investigate or prosecute any alcohol or drug abuse patient.[facility] HospitalIn the event this information is protected by the Federal Confidentiality of Alcohol and Drug Abuse Patient Records regulations: The Federal rules restrict any use of the information to criminally investigate or prosecute any alcohol or drug abuse patient.[facility] HospitalIn the event this information is protected by the Federal Confidentiality of Alcohol and Drug Abuse Patient Records regulations: The Federal rules restrict any use of the information to criminally investigate or prosecute any alcohol or drug abuse patient.[facility] HospitalIn the event this information is protected by the Federal Confidentiality of Alcohol and Drug Abuse Patient Records regulations: The Federal rules restrict any use of the information to criminally investigate or prosecute any alcohol or drug abuse patient.[facility] HospitalIn the event this information is protected by the Federal Confidentiality of Alcohol and Drug Abuse Patient Records regulations: The Federal rules restrict any use of the information to criminally investigate or prosecute any alcohol or drug abuse patient.[facility] HospitalIn the event this information is protected by the Federal Confidentiality of Alcohol and Drug Abuse Patient Records regulations: The Federal rules restrict any use of the information to criminally investigate or prosecute any alcohol or drug abuse patient.[facility] HospitalIn the event this information is protected by the Federal Confidentiality of Alcohol and Drug Abuse Patient Records regulations: The Federal rules restrict any use of the information to criminally investigate or prosecute any alcohol or drug abuse patient.[facility] HospitalIn the event this information is protected by the Federal Confidentiality of Alcohol and Drug Abuse Patient Records regulations: The Federal rules restrict any use of the information to criminally investigate or prosecute any alcohol or drug abuse patient.[facility] HospitalIn the event this information is protected by the Federal Confidentiality of Alcohol and Drug Abuse Patient Records regulations: The Federal rules restrict any use of the information to criminally investigate or prosecute any alcohol or drug abuse patient.[facility] HospitalIn the event this information is protected by the Federal Confidentiality of Alcohol and Drug Abuse Patient Records regulations: The Federal rules restrict any use of the information to criminally investigate or prosecute any alcohol or drug abuse patient.[facility] Reason for Visit (unrecogniz ed section and [...] 45 MINS Jesus Manuel Resendiz PA-C [address] [place] [address] Pt [facility] [address] [place] [address] Referral ID Status Reason Start Date Expiration Date Visits Requested Visits Authorized [id number] Authorized PCP Requested Referral Auto-Generate d Referral 07/12/2023 07/11/2024 99 99 Reason Comments Established Patient Reason Comments Results Reason Comments Chemotherapy Treatment Specialty Diagnoses / Procedures Referred By Contac t Referred To Contact Diagnoses Malignant neoplasm of lower third of esophagus (HCC) Esophageal adenocarcinoma (HCC) Richard Jenkins, DO [address] [facility] [place] [address] [facility] [address] [place] [address] Referral ID Status Reason Start Date Expiration Date V isits Requested Visits Authorized [id number] Authorized 07/14/2021 10/12/2021 99 99 Specialty Diagnoses / Procedures Referred By Contac t Referred To Contact Diagnoses Malignant neoplasm of lower third of esophagus (HCC) Esophageal adenocarcinoma (HCC) Richard Jenkins, DO [address] [facility] [place] [address] [facility] [address] [place] [address] Reason Comments Results Add T4 Specialty Diagnoses / Procedures Referred By Contac t Referred To Contact CT IMAGING Diagnoses Malignant neoplasm of lower third of esophagus (HCC) Pleural effusion Procedures CT CHEST W IVCON DIAGNOSTIC COMPUTED TOMOGRAPHY THORAX W/CONTRAST Mari Akhtar, COMPANY 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 [address] [place] [address] Ct Imaging Referral ID Status Reason Start Date Expiration Date V isits Requested Visits Authorized [id number] Closed Auto-Generate d Referral 08/24/2021 09/23/2022 1 [...] THORAX W/CONTRAST Richard Jenkins, DO [address] [place] [address] [place] [address] Referral ID Status Reason Start Date Expiration Date V isits Requested Visits Authorized [id number] Closed Auto-Generate d Referral 11/02/2021 12/02/2022 1 1 Specialty Diagnoses / Procedures Referred By Contac t Referred To Contact CT IMAGING Diagnoses Malignant neoplasm of lower third of esophagus (HCC) Procedures CT CHEST W IVCON DIAGNOSTIC COMPUTED TOMOGRAPHY THORAX W/CONTRAST Mari Akhtar, ADALGISA.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 [address] [place] [address] [place] [address] Referral ID Status Reason Start Date Expiration Date V isits Requested Visits Authorized [id number] Closed Auto-Generate d Referral 02/22/2022 03/24/2023 [address] Specialty Diagnoses / Procedures Referred By Contac t Referred To Contact CT IMAGING Diagnoses Malignant neoplasm of lower third of esophagus (HCC) Procedures CT CHEST W IVCON DIAGNOSTIC COMPUTED TOMOGRAPHY THORAX W/CONTRAST Richard Jenkins, DO [address] [facility] [place] [address] [place] [address] Referral ID Status Reason Start Date Expiration Date V isits Requested Visits Authorized [id number] Closed Auto-Generate d Referral 08/22/2022 09/21/2023 1 [...] INC GB W/PHARMA INTERVENJ Usha Mcgovern PA-C [address] [place] [address] [facility] [address] [place] [address] Referral ID Status Reason Start Date Expiration Date V isits Requested Visits Authorized [id number] Closed Auto-Generate d Referral 06/19/2023 07/18/2024 1 1 Reason Comments Radiology [place] Specialty Diagnoses / Procedures Referred By Contac t Referred To Contact US IMAGING Diagnoses RUQ pain Nausea Procedures US ABD RIGHT UPPER QUADRANT US ABDOMINAL REAL TIME W/IMAGE LIMITED Usha Mcgovern PA-C [address] [place] [address] Us Imaging [place] [address] Referral ID Status Reason Start Date Expiration Date V isits Requested Visits Authorized [id number] Closed Auto-Generate d Referral 06/19/2023 07/18/2024 1 1 Reason Comments New Patient Low Back Pain Back Pain middle Back Pain (Upper Back) Specialty Diagnoses / Procedures Referred By Contac t Referred To Contact [facility] [place] Diagnoses Closed wedge compression fracture of T10 vertebra with routine healing, subsequent encounter Procedures [facility] OFFICE/OUTPATIENT NEW HIGH MDM 60 MINUTES Richard Jenkins, DO [address] [place] [address] Referral ID Status Reason Start Date Expiration Date V isits Requested Visits Authorized [id number] Closed PCP Requested Referral 06/18/2023 06/17/2024 1 1 Reason Comments Patient Question Reason Comments PT Eval Specialty Diagnoses / Procedures Referred By Contac t Referred To Contact CT IMAGING Diagnoses Malignant neoplasm of lower third of esophagus (HCC) Procedures CT ABD/PEL W IVCON CT ABD & PELVIS W/CONTRAST Richard Jenkins DO [address] [place] [address] [place] [address] Referral ID Status Reason Start Date Expiration Date V isits Requested Visits Authorized [id number] Closed Auto-Generate d Referral 07/19/2023 08/17/2024 1 1 Specialty Diagnoses / Procedures Referred By Contac t Referred To Contact CT IMAGING Diagnoses Malignant neoplasm of lower third of esophagus (HCC) Procedures CT ABD/PEL W IVCON CT ABD & PELVIS W/CONTRAST Richard Jenkins, DO [address] [place] [address] [place] [address] Reason Comments AVS 08/10/23 Reason Comments Established Patient Specialty Diagnoses / Procedures Referred By Contac t Referred To Contact MR IMAGING Diagnoses Pathological fracture of thoracic vertebra, initial encounter Procedures MRI THORACIC SPINE WO/W IVCON MRI SPINAL CANAL THORACIC W/O & W/CONTR MATRL Richard Jenkins, DO [address] [place] [address] [place] [address] Referral ID Status Reason Start Date Expiration Date V isits Requested Visits Authorized [id number] Closed Auto-Generate d Referral 08/10/2023 09/08/2024 1 1 Reason Comments ER F/U [facility] ER 09/10/23 Reason Comments Patient Update Reason Comments Biopsy Request Bone Biopsy Reason Comments F/U 6 months Reason Comments Results Reason Comments Shortness of Breath Chronic pleural effu murray Reason Comments Hospital F/U [facility] Reason Comments Consult [facility] admitted Reason Comments Outside EGD Reason Comments Hospital Admission [facility] Reason Comments Outside H&P Outside Nephrology Reason [...] Richard Jenkins, DO [address] [place] [address] [place] [address] Referral ID Status Reason Start Date Expiration Date V isits Requested Visits Authorized [id number] Closed Auto-Generate d Referral 01/15/2024 02/13/2025 1 1 Specialty Diagnoses / Procedures Referred By Nahomy t Referred To Contact CT IMAGING Diagnoses Malignant neoplasm of lower third of esophagus (HCC) Procedures CT ABD/PEL WO IVCON CT ABD & PELVIS W/O CONTRAST Richard Jenkins, DO [address] [place] [address] [place] [address] Reason Comments Outside Imaging Reason Comments Outside [...] Richard Jenkins, DO [address] [place] [address] [place] [address] Referral ID Status Reason Start Date Expiration Date V isits Requested Visits Authorized [id number] Closed Auto-Generate d Referral 05/02/2024 06/01/2025 1 1 Reason Comments Referral - Kidney Txp Reason Comments Outside [id number]-Jim-GEO Ordered Reason Comments Referral - Kidney Txp [...] W/O CONTRAST Maria Victoria Scott MD [address] [place] [address] Phone: tel: fax: [facility] [address] [place] [address] Phone: tel: Referral ID Status Reason Start Date Expiration Date Visits Requested Visits Authorized [id number] Authorized Financial Clearance Required - OON Payor [...] hormone excess Procedures CONSULT TO ENDOCRINOLOGY OFFICE/OUTPATIENT [facility] 60 MINUTES Yaw Singh MD [address] [place] [address] Phone: tel: fax: Referral ID Status Reason Start Date Expiration Date V isits Requested Visits Authorized [id number] Closed PCP Requested Referral 09/26/2024 09/26/2025 1 1 Specialty Diagnoses / Procedures Referred By Contac t Referred To Contact CT IMAGING Diagnoses Malignant neoplasm of lower third of esophagus (HCC) Procedures CT ABD/PEL WO IVCON CT ABD & PELVIS W/O CONTRAST Richard Jenkins, DO [address] [place] [address] Phone: tel: fax: [place] [address] Referral ID Status Reason Start Date Expiration Date V isits Requested Visits Authorized [id number] Closed Auto-Generate d Referral 05/02/2024 06/01/2025 1 1 Reason Onset Date Comments Population Health Navigation Outreach 11/05/2024 [employer] [facility]EMA PCSA Reason Comments avs 8 Reason Onset Date Comments Refill Request 12/22/2024 Reason Comments Cough Cough, sinus, conges tion and runny nose x 3 weeks Care Teams (unrecognized sec tion and content) Skip Pitman Relationship Specialty Start Date End Date Yaw Singh MD [address] [facility] [place] [place] [address] PCP - General Family Practice 08/27/20 Madan Roy MD, [address] [facility] [place] [address] Physician Radiation Oncology 04/28/20 Luly Gaffney RN Specialty Business Communications Instructor Oncology 05/18/20 Richard Jenkins, DO [address] [place] [address] Referring Hematology/Oncology 05/25/20 Ludin, Ewing S [address] [place] [address] Cardiology 06/24/20 Sena Seymour LISW Telegraph Editor 10/06/20 Skip Pitman Relationship Specialty Start Date End Date Yaw Singh MD [address] [facility] [place] [address] PCP - General Family Practice 08/27/20 Madan Roy MD, [address] [facility] [place] [address] Physician Radiation Oncology 04/28/20 Luly Gaffney RN Specialty Business Communications Instructor Oncology 05/18/20 Richard Jenkins, DO [address] [facility] [address] Referring Hematology/Oncology 05/25/20 Ludin, Haroldo S [address] [place] [address] Cardiology 06/24/20 Sena Seymour LISW Telegraph Editor 10/06/20 Skip Pitman Relationship Specialty Start Date End Date Yaw Singh MD [address] [facility] [place] [place] [address] PCP - General Family Practice 08/27/20 Madan Roy MD, [address] [facility] [place] [address] Physician Radiation Oncology 04/28/20 Luly Gaffney RN Specialty Business Communications Instructor Oncology 05/18/20 Richard Jenkins, DO [address] [facility] [address] Referring Hematology/Oncology 05/25/20 Ludin, Haroldo S [address] [place] [address] Cardiology 06/24/20 Sena Seymour LISW Telegraph Editor 10/06/20 Skip Pitman Relationship Specialty Start Date End Date Yaw Singh MD [address] [facility] [place] [place] [address] PCP - General Family Practice 08/27/20 Madan Roy MD, [address] [facility] [place] [address] Physician Radiation Oncology 04/28/20 Luly Gaffney RN Specialty Business Communications Instructor Oncology 05/18/20 Richard Jenkins, DO [address] [facility] [place] [address] Referring Hematology/Oncology 05/25/20 Ludin, Ewing S [address] [facility] [address] [place] [address] Cardiology 06/24/20 Sena Seymour LISW Telegraph Editor 10/06/20 Skip Pitman Relationship Specialty Start Date End Date Yaw Singh MD [address] [facility] [place] [place] [address] PCP - General Family Practice 08/27/20 Madan Roy MD, [address] [facility] [place] [address] Physician Radiation Oncology 04/28/20 Luly Gaffney RN Specialty Business Communications Instructor Oncology 05/18/20 Richard Jenkins, DO [address] [place] [address] Referring Hematology/Oncology 05/25/20 Ludin, Ewing S [address] [facility] [address] [place] [address] Cardiology 06/24/20 Sena Seymour LISW Telegraph Editor 10/06/20 Skip Pitman Relationship Specialty Start Date End Date Yaw Singh MD [address] [facility] [place] [address] PCP - General Family Practice 08/27/20 Madan Roy MD, [address] [facility] [place] [address] Physician Radiation Oncology 04/28/20 Luly Gaffney, RN Specialty Business Communications Instructor Oncology 05/18/20 Richard Jenkins, DO [address] [facility] [address] Referring Hematology/Oncology 05/25/20 Ludin, Ewing S [address] [facility] [address] [place] [address] Cardiology 06/24/20 Sena Seymour LISW Telegraph Editor 10/06/20 Skip Pitman Relationship Specialty Start Date End Date Yaw Singh MD [address] [facility] [place] [address] PCP - General Family Practice 08/27/20 Madan Roy MD, [address] [facility] [place] [address] Physician Radiation Oncology 04/28/20 Luly Gaffney RN Specialty Business Communications Instructor Oncology 05/18/20 Richard Jenkins, DO [address] [place] [address] Referring Hematology/Oncology 05/25/20 Ludin, Ewing S [address] [place] [address] Cardiology 06/24/20 Sena Seymour LISW Telegraph Editor 10/06/20 Skip Pitman Relationship Specialty Start Date End Date Yaw Singh MD [address] [facility] [place] [place] [address] PCP - General Family Practice 08/27/20 Madan Roy MD, [address] [place] [address] Physician Radiation Oncology 04/28/20 Luly Gaffney RN Specialty Business Communications Instructor Oncology 05/18/20 Richard Jenkins, DO [address] [facility] [place] [address] Referring Hematology/Oncology 05/25/20 Ludin, Ewing S [address] [place] [address] Cardiology 06/24/20 Sena Seymour LISW Telegraph Editor 10/06/20 Skip Pitman Relationship Specialty Start Date End Date Yaw Singh MD [address] [place] [address] PCP - General Family Practice 08/27/20 Madan Roy MD, [address] [facility] [place] [address] Physician Radiation Oncology 04/28/20 Luly Gaffney RN Specialty Business Communications Instructor Oncology 05/18/20 Richard Jenkins, DO [address] [place] [address] Referring Hematology/Oncology 05/25/20 Ludin, Ewing S [address] [facility] [address] [place] [address] Cardiology 06/24/20 Sena Seymour LISW Telegraph Editor 10/06/20 Skip Pitman Relationship Specialty Start Date End Date Yaw Singh MD [address] [facility] [place] [address] PCP - General Family Practice 08/27/20 Madan Roy MD, [address] [place] [address] Physician Radiation Oncology 04/28/20 Luly Gaffney RN Specialty Business Communications Instructor Oncology 05/18/20 Richard Jenkins, DO [address] [place] [address] Referring Hematology/Oncology 05/25/20 Ludin, Ewing S [address] [facility] [address] [place] [address] Cardiology 06/24/20 Sena Seymour LISW Telegraph Editor 10/06/20 Skip Pitman Relationship Specialty Start Date End Date Yaw Singh MD [address] [facility] [place] [address] PCP - General Family Practice 08/27/20 Madan Roy MD, [address] [place] [address] Physician Radiation Oncology 04/28/20 Luly Gaffney RN Specialty Business Communications Instructor Oncology 05/18/20 Richard Jenkins, DO [address] [place] [address] Referring Hematology/Oncology 05/25/20 Ludin, Ewing S [address] [facility] [address] [place] [address] Cardiology 06/24/20 Sena Seymour LISW Telegraph Editor 10/06/20 Skip Pitman Relationship Specialty Start Date End Date Yaw Singh MD [address] [facility] [place] [place] [address] PCP - General Family Practice 08/27/20 Madan Roy MD, [address] [facility] [place] [address] Physician Radiation Oncology 04/28/20 Luly Gaffney RN Specialty Business Communications Instructor Oncology 05/18/20 Richard Jenkins, [address] [facility] [place] [address] Referring Hematology/Oncology 05/25/20 Ludin, Haroldo S [address] [facility] [address] [place] [address] Cardiology 06/24/20 Sena Seymour LISW Telegraph Editor 10/06/20 Skip Pitman Relationship Specialty Start Date End Date Yaw Singh MD [address] [facility] [place] [place] [address] PCP - General Family Practice 08/27/20 Madan Roy MD, [address] [facility] [place] [address] Physician Radiation Oncology 04/28/20 Luly Gaffney RN Specialty Business Communications Instructor Oncology 05/18/20 Richard Jenkins, [address] [facility] [place] [address] Referring Hematology/Oncology 05/25/20 Ludin, Ewing S [address] [place] [address] Cardiology 06/24/20 Sena Seymour LISW Telegraph Editor 10/06/20 Skip Pitman Relationship Specialty Start Date End Date Yaw Singh MD [address] [facility] [place] [address] PCP - General Family Practice 08/27/20 Madan Roy MD, [address] [facility] [place] [address] Physician Radiation Oncology 04/28/20 Luly Gaffney RN Specialty Business Communications Instructor Oncology 05/18/20 Richard Jenkins, [address] [place] [address] Referring Hematology/Oncology 05/25/20 Ludin, Haroldo S [address] [facility] [address] [place] [address] Cardiology 06/24/20 Sena Seymour LISW Telegraph Editor 10/06/20 Skip Pitman Relationship Specialty Start Date End Date Yaw Singh MD [address] [facility] [place] [address] PCP - General Family Practice 08/27/20 Madan Roy MD, [address] [place] [address] Physician Radiation Oncology 04/28/20 Luly Gaffney RN Specialty Business Communications Instructor Oncology 05/18/20 Richard Jenkins, [address] [place] [address] Referring Hematology/Oncology 05/25/20 Ludin, Haroldo S [address] [facility] [address] [place] [address] Cardiology 06/24/20 Sena Seymour, MICHELE Telegraph Editor 10/06/20 Skip Pitman Relationship Specialty Start Date End Date Yaw Singh MD [address] [facility] [place] [address] PCP - General Family Practice 08/27/20 Madan Roy MD, [address] [facility] [place] [address] Physician Radiation Oncology 04/28/20 Luly Gaffney RN Specialty Business Communications Instructor Oncology 05/18/20 Richard Jenkins, DO [address] [facility] [place] [address] Referring Hematology/Oncology 05/25/20 Ludin, Ewing S [address] [place] [address] Cardiology 06/24/20 Sena Seymour RN Telegraph Editor 10/06/20 Skip Pitman Relationship Specialty Start Date End Date Yaw Singh MD [address] [facility] [place] [place] [address] PCP - General Family Practice 08/27/20 Madan Roy MD, [address] [facility] [place] [address] Physician Radiation Oncology 04/28/20 Luly Gaffney RN Specialty Business Communications Instructor Oncology 05/18/20 Richard Jenkins, DO [address] [facility] [place] [address] Referring Hematology/Oncology 05/25/20 Ludin, Haroldo S [address] [place] [address] Cardiology 06/24/20 Sena Seymour RN Telegraph Editor 10/06/20 Skip Pitman Relationship Specialty Start Date End Date Yaw Singh MD [address] [facility] [place] [address] PCP - General Family Medicine 08/27/20 Madan Roy MD, [address] [facility] [place] [address] Physician Radiation Oncology 04/28/20 Luly Gaffney RN Specialty Business Communications Instructor Oncology 05/18/20 Richard Jenkins, DO [address] [facility] [place] [address] Referring Hematology/Oncology 05/25/20 Ludin, Ewing S [address] [place] [address] Cardiology 06/24/20 Sena Seymour RN Telegraph Editor 10/06/20 Skip Pitman Relationship Specialty Start Date End Date Yaw Singh MD [address] [facility] [place] [address] PCP - General Family Medicine 08/27/20 Madan Roy MD, [address] [facility] [place] [address] Physician Radiation Oncology 04/28/20 Luly Gaffney RN Specialty Business Communications Instructor Oncology 05/18/20 Richard Jenkins, DO [address] [place] [place] [address] Referring Hematology/Oncology 05/25/20 Ludin, Haroldo S [address] [facility] [address] [place] [address] Cardiology 06/24/20 Sena Seymour RN Telegraph Editor 10/06/20 Skip Pitman Relationship Specialty Start Date End Date Yaw Singh MD [address] [facility] [place] [address] PCP - General Family Medicine 08/27/20 Madan Roy MD, [address] [facility] [place] [address] Physician Radiation Oncology 04/28/20 Luly Gaffney, RN Specialty Business Communications Instructor Oncology 05/18/20 Richard Jenkins, DO [address] [facility] [place] [address] Referring Hematology/Oncology 05/25/20 Ludin, Haroldo S [address] [facility] [address] [place] [address] Cardiology 06/24/20 Sena Seymour, MICHELE Telegraph Editor 10/06/20 Skip Pitman Relationship Specialty Start Date End Date Yaw Singh MD [address] [facility] [place] [address] PCP - General Family Medicine 08/27/20 Madan Roy MD, [address] [facility] [place] [address] Physician Radiation Oncology 04/28/20 Luly Gaffney RN Specialty Business Communications Instructor Oncology 05/18/20 Richard Jenkins, DO [address] [place] [place] [address] Referring Hematology/Oncology 05/25/20 Ludin, Ewing S [address] [place] [address] Cardiology 06/24/20 Sena Seymour RN Telegraph Editor 10/06/20 Skip Pitman Relationship Specialty Start Date End Date Yaw Singh MD [address] [facility] [place] [address] PCP - General Family Medicine 08/27/20 Madan Roy MD, [address] [facility] [place] [address] Physician Radiation Oncology 04/28/20 Luly Gaffney RN Specialty Business Communications Instructor Oncology 05/18/20 Richard Jenkins, DO [address] [place] [place] [address] Referring Hematology/Oncology 05/25/20 Ludin, Ewing S [address] [facility] [address] [place] [address] Cardiology 06/24/20 Sena Seymour, RN Telegraph Editor 10/06/20 Skip Pitman Relationship Specialty Start Date End Date Yaw Singh MD [address] [facility] [place] [address] PCP - General Family Medicine 08/27/20 Madan Roy MD, [address] [facility] [place] [address] Physician Radiation Oncology 04/28/20 Luly Gaffney RN Specialty Business Communications Instructor Oncology 05/18/20 Richard Jenkins, DO [address] [place] [place] [address] Referring Hematology/Oncology 05/25/20 Ludin, Ewing S [address] [place] [address] Cardiology 06/24/20 Sena Seymour RN Telegraph Editor 10/06/20 Skip Pitman Relationship Specialty Start Date End Date Yaw Singh MD [address] [facility] [place] [address] PCP - General Family Medicine 08/27/20 Madan Roy MD, [address] [place] [place] [address] Physician Radiation Oncology 04/28/20 Luly Gaffney RN Specialty Business Communications Instructor Oncology 05/18/20 Richard Jenkins, DO [address] [place] [place] [address] Referring Hematology/Oncology 05/25/20 Ludin, Ewing S [address] [facility] [address] [place] [address] Cardiology 06/24/20 Sena Seymour, RN Telegraph Editor 10/06/20 Skip Pitman Relationship Specialty Start Date End Date Yaw Singh MD [address] [facility] [place] [address] PCP - General Family Medicine 08/27/20 Madan Roy MD, [address] [facility] [place] [address] Physician Radiation Oncology 04/28/20 Luly Gaffney RN Specialty Business Communications Instructor Oncology 05/18/20 Richard Jenkins, DO [address] [facility] [place] [address] Referring Hematology/Oncology 05/25/20 Ludin, Ewing S [address] [place] [address] Cardiology 06/24/20 Sena Seymour RN Telegraph Editor 10/06/20 Team Status: Active Member Role Status Dates Dr. Dane Hancock III, MD Family Provider Active Dr. Yaw Singh MD Primary Care Provider Active Team Status: Inactive Member Role Status Dates Dr. Yaw Singh MD Primary Care Provider, Referri Provider Active Angel Whitney NP, [employer]ILL[employer]ARD ERECTOR HELPER-C Attending Provider Active Team Status: Inactive Member Role Status Dates Dr. Yaw Singh MD Primary Care Provider Active Dr. Sue Roberts MD Emergency Provider Active Skip Pitman Relationship Specialty Start Date End Date Yaw Singh MD [address] [facility] [place] [address] PCP - General Family Medicine 08/27/20 Madan Roy MD, [address] [facility] [place] [address] Physician Radiation Oncology 04/28/20 Luly Gaffney RN Specialty Business Communications Instructor Oncology 05/18/20 Richard Jenkins, DO [address] [facility] [place] [address] Referring Hematology/Oncology 05/25/20 Ludin, Ewing S [address] [facility] [address] [place] [address] Cardiology 06/24/20 Sena Seymour RN Telegraph Editor 10/06/20 Skip Pitman Relationship Specialty Start Date End Date Yaw Singh MD [address] [facility] [place] [place] [address] PCP - General Family Medicine 08/27/20 Madan Roy MD, [address] [facility] [place] [address] Physician Radiation Oncology 04/28/20 Luly Gaffney RN Specialty Business Communications Instructor Oncology 05/18/20 Richard Jenkins, DO [address] [facility] [place] [address] Referring Hematology/Oncology 05/25/20 Ludin, Haroldo S [address] [place] [address] Cardiology 06/24/20 Sena Seymour RN Telegraph Editor 10/06/20 Team Status: Inactive Member Role Status Dates Dr. Yaw Singh MD Primary Care Provider Active Dr. Sue Roberts MD Attending Provider, Emergency Provider Active Team Status: Inactive Member Role Status Dates Dr. Yaw Singh MD Primary Care Provider Active Dr. Van Danielle MD Attending Provider, Referr ing Provider Active Skip Pitman Relationship Specialty Start Date End Date Yaw Singh MD [address] [facility] [place] [address] PCP - General Family Medicine 08/27/20 Madan Roy MD, [address] [facility] [place] [address] Physician Radiation Oncology 04/28/20 Luly Gaffney RN Specialty Business Communications Instructor Oncology 05/18/20 Richard Jenkins, DO [address] [facility] [place] [address] Referring Hematology/Oncology 05/25/20 Ludin, Haroldo S [address] [place] [address] Cardiology 06/24/20 Sena Seymour RN Telegraph Editor 10/06/20 Skip Pitman Relationship Specialty Start Date End Date Yaw Singh MD [address] [facility] [place] [address] PCP - General Family Medicine 08/27/20 Madan Roy MD, [address] [facility] [place] [address] Physician Radiation Oncology 04/28/20 Luly Gaffney RN Specialty Business Communications Instructor Oncology 05/18/20 Richard Jenkins, DO [address] [facility] [place] [address] Referring Hematology/Oncology 05/25/20 Ludin, Haroldo S [address] [place] [address] Cardiology 06/24/20 Sena Seymour RN Telegraph Editor 10/06/20 Skip Pitman Relationship Specialty Start Date End Date Yaw Singh MD [address] [place] [address] PCP - General Family Medicine 08/27/20 Madan Roy MD, [address] [place] [address] Physician Radiation Oncology 04/28/20 Luly Gaffney RN Specialty Business Communications Instructor Oncology 05/18/20 Richard Jenkins, [address] [place] [address] Referring Hematology/Oncology 05/25/20 Ludin, Ewing S [address] [address] Cardiology 06/24/20 Sena Seymour RN Telegraph Editor 10/06/20 Skip Pitman Relationship Specialty Start Date End Date Yaw Singh MD [address] [place] [address] PCP - General Family Medicine 08/27/20 Madan Roy MD, [address] [place] [address] Physician Radiation Oncology 04/28/20 Luly Gaffney RN Specialty Business Communications Instructor Oncology 05/18/20 Richard Jenkins, [address] [place] [address] Referring Hematology/Oncology 05/25/20 Ludin, Ewing S [address] [address] Cardiology 06/24/20 Sena Seymour RN Telegraph Editor 10/06/20 Team Status: Inactive Member Role Status Dates Dr. Yaw Singh MD Primary Care Provider Active Angel Whitney NP, BILLBOARD ERECTOR HELPER-C Attending Provider, Referring Pro vider Active Skip Pitman Relationship Specialty Start Date End Date Yaw Singh MD [address] [facility] [place] [address] PCP - General Family Medicine 08/27/20 Madan Roy MD, [address] [place] [address] Physician Radiation Oncology 04/28/20 Luly Gaffney RN Specialty Business Communications Instructor Oncology 05/18/20 Richard Jenkins DO [address] [place] [address] Referring Hematology/Oncology 05/25/20 Haroldo Noland [address] [place] [address] Cardiology 06/24/20 Sena Seymour, RN Telegraph Editor 10/06/20 Skip Pitman Relationship Specialty Start Date End Date Yaw Singh MD [address] [facility] [place] [address] PCP - General Family Medicine 08/27/20 Madan Roy MD, [address] [place] [address] Physician Radiation Oncology 04/28/20 Luly Gaffney RN Specialty Business Communications Instructor Oncology 05/18/20 Richard Jenkins DO [address] [place] [address] Referring Hematology/Oncology 05/25/20 Haroldo Noland MD [address] [place] [address] Cardiology 06/24/20 Sena Seymour, RN Telegraph Editor 10/06/20 Skip Pitman Relationship Specialty Start Date End Date Yaw Singh MD [address] [facility] [place] [place] [address] PCP - General Family Medicine 08/27/20 Madan Roy MD, [address] [place] [address] Physician Radiation Oncology 04/28/20 Luly Gaffney RN Specialty Business Communications Instructor Oncology 05/18/20 Richard Jenkins DO [address] [place] [address] Referring Hematology/Oncology 05/25/20 Haroldo Noland MD [address] [place] [address], [place] [address] Cardiology 06/24/20 Sena Seymour RN Telegraph Editor 10/06/20 Skip Pitman Relationship Specialty Start Date End Date Yaw Singh MD [address] [place] [address] PCP - General Family Medicine 08/27/20 Madan Roy MD, [address] [place] [address] Physician Radiation Oncology 04/28/20 Luly Gaffney RN Specialty Business Communications Instructor Oncology 05/18/20 Richard Jenkins DO [address] [address] Referring Hematology/Oncology 05/25/20 Haroldo Noland MD [address] [place] [address] Cardiology 06/24/20 Sena Seymour, RN Telegraph Editor 10/06/20 Skip Pitman Relationship Specialty Start Date End Date Yaw Singh MD [address] [facility] [place] [place] [address] PCP - General Family Medicine 08/27/20 Madan Roy MD, [address] [facility] [place] [address] Physician Radiation Oncology 04/28/20 Luly Gaffney RN Specialty Business Communications Instructor Oncology 05/18/20 Richard Jenkins DO [address] [place] [place] [address] Referring Hematology/Oncology 05/25/20 Haroldo Noland MD [address] [place] [address] Cardiology 06/24/20 Sena Seymour RN Telegraph Editor 10/06/20 Skip Pitman Relationship Specialty Start Date End Date Yaw Singh MD [address] [facility] [place] [address] PCP - General Family Medicine 08/27/20 Madan Roy MD, [address] [place] [place] [address] Physician Radiation Oncology 04/28/20 Luly Gaffney RN Specialty Business Communications Instructor Oncology 05/18/20 Richard Jenkins DO [address] [place] [address] Referring Hematology/Oncology 05/25/20 Haroldo Noland MD [address] [place] [address] Cardiology 06/24/20 Sena Seymour RN Telegraph Editor 10/06/20 Skip Pitman Relationship Specialty Start Date End Date Yaw Singh MD [address] [facility] [place] [address] PCP - General Family Medicine 08/27/20 Madan Roy MD, [address] [facility] [place] [address] Physician Radiation Oncology 04/28/20 Luly Gaffney RN Specialty Business Communications Instructor Oncology 05/18/20 Richard Jenkins DO [address] [facility] [place] [address] Referring Hematology/Oncology 05/25/20 Haroldo Noland MD [address] [place] [address] Cardiology 06/24/20 Sena Seymour RN Telegraph Editor 10/06/20 Skip Pitman Relationship Specialty Start Date End Date Yaw Singh MD [address] [facility] [place] [place] [address] PCP - General Family Medicine 08/27/20 Madan Roy MD, MD [address] [place] [address] Physician Radiation Oncology 04/28/20 Luly Gaffney RN Specialty Business Communications Instructor Oncology 05/18/20 Richard Jenkins DO [address] [place] [address] Referring Hematology/Oncology 05/25/20 Haroldo Noland MD [address] [facility] [address] [place] [address] Cardiology 06/24/20 Sena Seymour, RN Telegraph Editor 10/06/20 Skip Pitman Relationship Specialty Start Date End Date Yaw Singh MD [address] [facility] [place] [address] PCP - General Family Medicine 08/27/20 Madan Roy MD, MD [address] [place] [address] Physician Radiation Oncology 04/28/20 Luly Gaffney RN Specialty Business Communications Instructor Oncology 05/18/20 Richard Jenkins DO [address] [place] [address] Referring Hematology/Oncology 05/25/20 Haroldo Noland MD [address] [facility] [address] [place] [address] Cardiology 06/24/20 Sena Seymour, RN Telegraph Editor 10/06/20 Skip Pitman Relationship Specialty Start Date End Date Yaw Singh MD [address] [facility] [place] [address] PCP - General Family Medicine 08/27/20 Madan Roy MD, MD [address] [place] [address] Physician Radiation Oncology 04/28/20 Luly Gaffney RN Specialty Business Communications Instructor Oncology 05/18/20 Richard Jenkins DO [address] [address] Referring Hematology/Oncology 05/25/20 Haroldo Noland MD [address] [place] [address] Cardiology 06/24/20 Sena Seymour RN Telegraph Editor 10/06/20 Skip Pitman Relationship Specialty Start Date End Date Yaw Singh MD [address] [place] [address] PCP - General Family Medicine 08/27/20 Madan Roy MD, [address] [place] [address] Physician Radiation Oncology 04/28/20 Luly Gaffney RN Specialty Business Communications Instructor Oncology 05/18/20 Richard Jenkins DO [address] [facility] [place] [address] Referring Hematology/Oncology 05/25/20 Haroldo Noland MD [address] [address] Cardiology 06/24/20 Sena Seymour RN Telegraph Editor 10/06/20 Skip Pitman Relationship Specialty Start Date End Date Yaw Singh MD [address] [place] [address] PCP - General Family Medicine 08/27/20 Madan Roy MD [address] [facility] [place] [address] Physician Radiation Oncology 04/28/20 Luly Gaffney RN Specialty Business Communications Instructor Oncology 05/18/20 Richard Jenkins DO [address] [place] [address] Referring Hematology/Oncology 05/25/20 Haroldo Noland MD [address] [facility] [address] [place] [address] Cardiology 06/24/20 Sena Seymour RN Telegraph Editor 10/06/20 Skip Pitman Relationship Specialty Start Date End Date Yaw Singh MD [address] [place] [address] PCP - General Family Medicine 08/27/20 Madan Roy MD [address] [place] [address] Physician Radiation Oncology 04/28/20 Luly Gaffney RN Specialty Business Communications Instructor Oncology 05/18/20 Richard Jenkins DO [address] [place] [address] Referring Hematology/Oncology 05/25/20 Haroldo Noland MD [address]audia [facility] [address] [place] [address] Cardiology 06/24/20 Sena Seymour RN Telegraph Editor 10/06/20 Skip Pitman Relationship Specialty Start Date End Date Yaw Singh MD [address] [facility] [place] [address] PCP - General Family Medicine 08/27/20 Madan Roy MD [address] [place] [address] Physician Radiation Oncology 04/28/20 Luly Gaffney RN Specialty Business Communications Instructor Oncology 05/18/20 Richard Jenkins DO [address] [address] Referring Hematology/Oncology 05/25/20 Haroldo Noland MD [address] [place] [address], [place] [address] Cardiology 06/24/20 Sena Seymour RN Telegraph Editor 10/06/20 Skip Pitman Relationship Specialty Start Date End Date Yaw Singh MD [address] [facility] [place] [place] [address] PCP - General Family Medicine 08/27/20 Madan Roy MD [address] [place] [address] Physician Radiation Oncology 04/28/20 Luly Gaffney RN Specialty Business Communications Instructor Oncology 05/18/20 Richard Jenkins DO [address] [address] Referring Hematology/Oncology 05/25/20 Haroldo Noland MD [address] [place] [address], [place] [address] Cardiology 06/24/20 Sena Seymour RN Telegraph Editor 10/06/20 Skip Pitman Relationship Specialty Start Date End Date Yaw Singh MD [address] [facility] [place] [address] PCP - General Family Medicine 08/27/20 Madan Roy MD [address] [place] [address] Physician Radiation Oncology 04/28/20 Luly Gaffney RN Specialty Business Communications Instructor Oncology 05/18/20 Richard Jenkins DO [address] [place] [address] Referring Hematology/Oncology 05/25/20 Haroldo Noland MD [address] [place] [address] Cardiology 06/24/20 Sena Seymour RN Telegraph Editor 10/06/20 Skip Pitman Relationship Specialty Start Date End Date Yaw Singh MD [address] [facility] [place] [address] PCP - General Family Medicine 08/27/20 Madan Roy MD [address] [place] [address] Physician Radiation Oncology 04/28/20 Luly Gaffney RN Specialty Business Communications Instructor Oncology 05/18/20 Richard Jenkins DO [address] [place] [address] Referring Hematology/Oncology 05/25/20 Haroldo Noland MD [address] [facility] [address] [place] [address] Cardiology 06/24/20 Sena Seymour RN Telegraph Editor 10/06/20 Skip Pitman Relationship Specialty Start Date End Date Yaw Singh MD [address] [place] [address] PCP - General Family Medicine 08/27/20 Madan Roy MD [address] [place] [address] Physician Radiation Oncology 04/28/20 Luly Gaffney RN Specialty Business Communications Instructor Oncology 05/18/20 Richard Jenkins DO [address] [place] [address] Referring Hematology/Oncology 05/25/20 Haroldo Noland MD [address] [place] [address], [place] [address] Cardiology 06/24/20 Sena Seymour RN Telegraph Editor 10/06/20 Skip Pitman Relationship Specialty Start Date End Date Yaw Singh MD [address] [facility] [place] [address] PCP - General Family Medicine 08/27/20 Madan Roy MD [address] [place] [address] Physician Radiation Oncology 04/28/20 Luly Gaffney RN Specialty Business Communications Instructor Oncology 05/18/20 Richard Jenkins DO [address] [place] [address] Referring Hematology/Oncology 05/25/20 Haroldo Noland MD [address] [place] [address] Cardiology 06/24/20 Sena Seymour, RN Telegraph Editor 10/06/20 Skip Pitman Relationship Specialty Start Date End Date Yaw Singh MD [address] [facility] [place] [place] [address] PCP - General Family Medicine 08/27/20 Madan Roy MD [address] [facility] [place] [address] Physician Radiation Oncology 04/28/20 Luly Gaffney RN Specialty Business Communications Instructor Oncology 05/18/20 Richard Jenkins DO [address] [facility] [place] [address] Referring Hematology/Oncology 05/25/20 Haroldo Noland MD [address] [place] [address] Cardiology 06/24/20 Sena Seymour RN Telegraph Editor 10/06/20 Skip Pitman Relationship Specialty Start Date End Date Yaw Singh MD [address] [facility] [place] [address] PCP - General Family Medicine 08/27/20 Madan Roy MD [address] [facility] [place] [address] Physician Radiation Oncology 04/28/20 Luly Gaffney RN Specialty Business Communications Instructor Oncology 05/18/20 Richard Jenkins DO [address] [facility] [place] [address] Referring Hematology/Oncology 05/25/20 Haroldo Noland MD [address]Claudia [facility] [address] [place] [address] Cardiology 06/24/20 Sena Seymour, RN Telegraph Editor 10/06/20 Skip Pitman Relationship Specialty Start Date End Date Yaw Singh MD [address] [place] [address] PCP - General Family Medicine 08/27/20 Madan Roy MD [address] [place] [address] Physician Radiation Oncology 04/28/20 Luly Gaffney RN Specialty Business Communications Instructor Oncology 05/18/20 Richard Jenkins DO [address] [place] [place] [address] Referring Hematology/Oncology 05/25/20 Haroldo Noland MD [address]ia [facility] [address] [place] [address] Cardiology 06/24/20 Sena Seymour, RN Telegraph Editor 10/06/20 Skip Pitman Relationship Specialty Start Date End Date Yaw Singh MD [address] [place] [address] PCP - General Family Medicine 08/27/20 Madan Roy MD [address] [place] [address] Physician Radiation Oncology 04/28/20 Luly Gaffney RN Specialty Business Communications Instructor Oncology 05/18/20 Richard Jenkins DO [address] [place] [place] [address] Referring Hematology/Oncology 05/25/20 Haroldo Noland MD [address] [facility] [address] [place] [address] Cardiology 06/24/20 Sena Seymour, RN Telegraph Editor 10/06/20 Skip Pitman Relationship Specialty Start Date End Date Yaw Singh MD [address] [facility] [place] [place] [address] PCP - General Family Medicine 08/27/20 Madan Roy MD [address] [address] Physician Radiation Oncology 04/28/20 Luly Gaffney RN Specialty Business Communications Instructor Oncology 05/18/20 Richard Jenkins DO [address] [place] [address] Referring Hematology/Oncology 05/25/20 Haroldo Noland MD [address] [facility] [address] Cardiology 06/24/20 Sena Seymour RN Telegraph Editor 10/06/20 Skip Pitman Relationship Specialty Start Date End Date Yaw Singh MD [address] [facility] [place] [place] [address] PCP - General Family Medicine 08/27/20 Madan Roy MD [address] [place] [address] Physician Radiation Oncology 04/28/20 Luly Gaffney RN Specialty Business Communications Instructor Oncology 05/18/20 Richard Jenkins DO [address] [place] [address] Referring Hematology/Oncology 05/25/20 Haroldo Noland MD [address] [place] [address] Cardiology 06/24/20 Sena Seymour, RN Telegraph Editor 10/06/20 Skip Pitman Relationship Specialty Start Date End Date Yaw Singh MD [address] [facility] [place] [place] [address] PCP - General Family Medicine 08/27/20 Madan Roy MD [address] [place] [address] Physician Radiation Oncology 04/28/20 Luly Gaffney RN Specialty Business Communications Instructor Oncology 05/18/20 Richard Jenkins DO [address] [place] [address] Referring Hematology/Oncology 05/25/20 Haroldo Noland MD [address] [place] [address] Cardiology 06/24/20 Sena Seymour, RN Telegraph Editor 10/06/20 Skip Pitman Relationship Specialty Start Date End Date Yaw Singh MD [address] [facility] [place] [place] [address] PCP - General Family Medicine 08/27/20 Madan Roy MD [address] [place] [address] Physician Radiation Oncology 04/28/20 Luly Gaffney RN Specialty Business Communications Instructor Oncology 05/18/20 Richard Jenkins DO [address] [facility] [place] [address] Referring Hematology/Oncology 05/25/20 Haroldo Noland MD [address] [facility] [address] [address] Cardiology 06/24/20 Sena Seymour, RN Telegraph Editor 10/06/20 Skip Pitman Relationship Specialty Start Date End Date Yaw Singh MD [address] [facility] [place] [place] [address] PCP - General Family Medicine 08/27/20 Madan Roy MD [address] [place] [address] Physician Radiation Oncology 04/28/20 Luly Gaffney RN Specialty Business Communications Instructor Oncology 05/18/20 Richard Jenkins DO [address] [facility] [place] [address] Referring Hematology/Oncology 05/25/20 Haroldo Noland MD [address] [place] [address] Cardiology 06/24/20 Sena Seymour RN Telegraph Editor 10/06/20 Skip Pitman Relationship Specialty Start Date End Date Yaw Singh MD [address] [place] [address] PCP - General Family Medicine 08/27/20 Madan Roy MD [address] [place] [address] Physician Radiation Oncology 04/28/20 Luly Gaffney RN Specialty Business Communications Instructor Oncology 05/18/20 Richard Jenkins DO [address] [place] [address] Referring Hematology/Oncology 05/25/20 Haroldo Noland MD [address] [facility] [address] [place] [address] Cardiology 06/24/20 Sena Seymour, RN Telegraph Editor 10/06/20 Skip Pitman Relationship Specialty Start Date End Date Yaw Singh MD [address] [facility] [place] [address] PCP - General Family Medicine 08/27/20 Madan Roy MD [address] [place] [address] Physician Radiation Oncology 04/28/20 Luly Gaffney RN Specialty Business Communications Instructor Oncology 05/18/20 Richard Jenkins DO [address] [place] [address] Referring Hematology/Oncology 05/25/20 Haroldo Noland MD [address] [facility] [address] [place] [address] Cardiology 06/24/20 Sena Seymour RN Telegraph Editor 10/06/20 Skip Pitman Relationship Specialty Start Date End Date Yaw Singh MD [address] [place] [address] PCP - General Family Medicine 08/27/20 Madan Roy MD [address] [place] [address] Physician Radiation Oncology 04/28/20 Luly Gaffney RN Specialty Business Communications Instructor Oncology 05/18/20 Richard Jenkins DO [address] [facility] [place] [address] Referring Hematology/Oncology 05/25/20 Haroldo Noland MD [address] [place] [address] Cardiology 06/24/20 Sena Seymour RN Telegraph Editor 10/06/20 Skip Pitman Relationship Specialty Start Date End Date Yaw Singh MD [address] [facility] [place] [place] [address] PCP - General Family Medicine 08/27/20 Madan Roy MD [address] [place] [address] Physician Radiation Oncology 04/28/20 Luly Gaffney RN Specialty Business Communications Instructor Oncology 05/18/20 Richard Jenkins DO [address] [place] [address] Referring Hematology/Oncology 05/25/20 Haroldo Noland MD [address] [place] [address], [place] [address] Cardiology 06/24/20 Sena Seymour RN Telegraph Editor 10/06/20 Skip Pitman Relationship Specialty Start Date End Date Yaw Singh MD [address] [facility] [place] [address] PCP - General Family Medicine 08/27/20 Madan Roy MD [address] [place] [address] Physician Radiation Oncology 04/28/20 Luly Gaffney RN Specialty Business Communications Instructor Oncology 05/18/20 Richard Jenkins DO [address] [place] [address] Referring Hematology/Oncology 05/25/20 Haroldo Noland MD [address] [place] [address] Cardiology 06/24/20 Sena Seymour RN Telegraph Editor 10/06/20 Skip Pitman Relationship Specialty Start Date End Date Yaw Singh MD [address] [facility] [place] [address] PCP - General Family Medicine 08/27/20 Madan Roy MD [address] [place] [address] Physician Radiation Oncology 04/28/20 Luly Gaffney RN Specialty Business Communications Instructor Oncology 05/18/20 Richard Jenkins DO [address] [place] [address] Referring Hematology/Oncology 05/25/20 Haroldo Noland MD [address] [place] [address] Cardiology 06/24/20 Sena Seymour RN Telegraph Editor 10/06/20 Skip Pitman Relationship Specialty Start Date End Date Yaw Singh MD [address] [facility] [place] [address] PCP - General Family Medicine 08/27/20 Madan Roy MD [address] [place] [address] Physician Radiation Oncology 04/28/20 Luly Gaffney RN Specialty Business Communications Instructor Oncology 05/18/20 Richard Jenkins DO [address] [place] [address] Referring Hematology/Oncology 05/25/20 Haroldo Noland MD [address] [place] [address], [place] [address] Cardiology 06/24/20 Sena Seymour RN Telegraph Editor 10/06/20 Skip Pitman Relationship Specialty Start Date End Date Yaw Singh MD [address] [facility] [place] [address] PCP - General Family Medicine 08/27/20 Madan Roy MD [address] [place] [address] Physician Radiation Oncology 04/28/20 Luly Gaffney RN Specialty Business Communications Instructor Oncology 05/18/20 Richard Jenkins DO [address] [place] [address] Referring Hematology/Oncology 05/25/20 Haroldo Noland MD [address] [place] [address] Cardiology 06/24/20 Sena Seymour, MICHELE Telegraph Editor 10/06/20 Skip Pitman Relationship Specialty Start Date End Date Yaw Singh MD [address] [facility] [place] [address] PCP - General Family Medicine 08/27/20 Madan Roy MD [address] [facility] [place] [address] Physician Radiation Oncology 04/28/20 Luly Gaffney RN Specialty Business Communications Instructor Oncology 05/18/20 Richard Jenkins DO [address] [place] [address] Referring Hematology/Oncology 05/25/20 Haroldo Noland MD [address] [place] [address] Cardiology 06/24/20 Sena Seymour RN Telegraph Editor 10/06/20 Skip Pitman Relationship Specialty Start Date End Date Yaw Singh MD [address] [facility] [place] [address] PCP - General Family Medicine 08/27/20 Madan Roy MD [address] [facility] [place] [address] Physician Radiation Oncology 04/28/20 Luly Gaffney RN Specialty Business Communications Instructor Oncology 05/18/20 Richard Jenkins DO [address] [place] [address] Referring Hematology/Oncology 05/25/20 Haroldo Noland MD [address] [facility] [address] [place] [address] Cardiology 06/24/20 Sena Seymour, RN Telegraph Editor 10/06/20 Skip Pitman Relationship Specialty Start Date End Date Yaw Singh MD [address] [facility] [place] [address] PCP - General Family Medicine 08/27/20 Madan Roy MD [address] [place] [address] Physician Radiation Oncology 04/28/20 Luly Gaffney RN Specialty Business Communications Instructor Oncology 05/18/20 Richard Jenkins DO [address] [place] [address] Referring Hematology/Oncology 05/25/20 Haroldo oNland MD [address] [place] [address] Cardiology 06/24/20 Sena Seymour RN Telegraph Editor 10/06/20 Skip Pitman Relationship Specialty Start Date End Date Yaw Singh MD [address] [facility] [place] [address] PCP - General Family Medicine 08/27/20 Madan Roy MD [address] [place] [address] Physician Radiation Oncology 04/28/20 Luly Gaffney RN Specialty Business Communications Instructor Oncology 05/18/20 Richard Jenkins DO [address] [place] [place] [address] Referring Hematology/Oncology 05/25/20 Haroldo Noland MD [address] [facility] [place] [address] Cardiology 06/24/20 Sena Seymour RN Telegraph Editor 10/06/20 Skip Pitman Relationship Specialty Start Date End Date Yaw Singh MD [address] [place] [address] PCP - General Family Medicine 08/27/20 Madan Roy MD [address] [address] Physician Radiation Oncology 04/28/20 Luly Gaffney RN Specialty Business Communications Instructor Oncology 05/18/20 Richard Jenkins DO [address] [address] Referring Hematology/Oncology 05/25/20 Haroldo Noland MD [address] [facility] [place] [address] Cardiology 06/24/20 Sena Seymour RN Telegraph Editor 10/06/20 Skip Pitman Relationship Specialty Start Date End Date Yaw Singh MD [address] [facility] [place] [address] PCP - General Family Medicine 08/27/20 Madan Roy MD [address] [place] [address] Physician Radiation Oncology 04/28/20 Luly Gaffney RN Specialty Business Communications Instructor Oncology 05/18/20 Richard Jenkins DO [address] [place] [address] Referring Hematology/Oncology 05/25/20 Haroldo Noland MD [address] [place] [address] Cardiology 06/24/20 Sena Seymour, RN Telegraph Editor 10/06/20 Skip Pitman Relationship Specialty Start Date End Date Yaw Singh MD [address] [facility] [place] [address] PCP - General Family Medicine 08/27/20 Madan Roy MD [address] [place] [address] Physician Radiation Oncology 04/28/20 Luly Gaffney RN Specialty Business Communications Instructor Oncology 05/18/20 Richard Jenkins DO [address] [place] [address] Referring Hematology/Oncology 05/25/20 Haroldo Noland MD [address] [place] [address] Cardiology 06/24/20 Sena Seymour, RN Telegraph Editor 10/06/20 Skip Pitman Relationship Specialty Start Date End Date Yaw Singh MD [address] [place] [address] PCP - General Family Medicine 08/27/20 Madan Roy MD [address] [place] [address] Physician Radiation Oncology 04/28/20 Luly Gaffney RN Specialty Business Communications Instructor Oncology 05/18/20 Richard Jenkins DO [address] [place] [address] Referring Hematology/Oncology 05/25/20 Haroldo Noland MD [address] [place] [address] Cardiology 06/24/20 Sena Seymour, RN Telegraph Editor 10/06/20 Skip Pitman Relationship Specialty Start Date End Date Yaw Singh MD [address] [facility] [place] [address] PCP - General Family Medicine 08/27/20 Madan Roy MD [address] [place] [address] Physician Radiation Oncology 04/28/20 Luly Gaffney RN Specialty Business Communications Instructor Oncology 05/18/20 Richard Jenkins DO [address] [place] [address] Referring Hematology/Oncology 05/25/20 Haroldo Noland MD [address] [place] [address] Cardiology 06/24/20 Sena Seymour, RN Telegraph Editor 10/06/20 Bud Beck DO [address] [place] [address] Gastroenterology 01/15/24 Skip Pitman Relationship Specialty Start Date End Date Yaw Singh MD [address] [facility] [place] [address] PCP - General Family Medicine 08/27/20 Madan Roy MD [address] [place] [address] Physician Radiation Oncology 04/28/20 Luly Gaffney RN Specialty Business Communications Instructor Oncology 05/18/20 Richard Jenkins DO [address] [place] [address] Referring Hematology/Oncology 05/25/20 Haroldo Noland MD [address] [place] [address] Cardiology 06/24/20 Sena Seymour, MICHELE Telegraph Editor 10/06/20 Bud Beck DO [address] [facility] [address] [place] [address] Gastroenterology 01/15/24 Skip Pitman Relationship Specialty Start Date End Date Yaw Singh MD [address] [facility] [place] [address] PCP - General Family Medicine 08/27/20 Madan Roy MD [address] [place] [address] Physician Radiation Oncology 04/28/20 Luly Gaffney RN Specialty Business Communications Instructor Oncology 05/18/20 Richard Jenkins DO [address] [place] [address] Referring Hematology/Oncology 05/25/20 Haroldo Noland MD [address] [facility] [place] [address] Cardiology 06/24/20 Sena Seymour, RN Telegraph Editor 10/06/20 Bud Beck DO [address] [facility] [address] [place] [address] Gastroenterology 01/15/24 Skip Pitman Relationship Specialty Start Date End Date Yaw Singh MD [address] [place] [address] PCP - General Family Medicine 08/27/20 Madan Roy MD [address] [facility] [place] [address] Physician Radiation Oncology 04/28/20 Luly Gaffney RN Specialty Business Communications Instructor Oncology 05/18/20 Richard eJnkins DO [address] [facility] [place] [address] Referring Hematology/Oncology 05/25/20 Haroldo Noland MD [address] [place] [address] Cardiology 06/24/20 Sena Seymour, RN Telegraph Editor 10/06/20 Bud Beck DO [address] [facility] [address] [place], [place] [address] Gastroenterology 01/15/24 Skip Pitman Relationship Specialty Start Date End Date Yaw Singh MD [address] [place] [address] PCP - General Family Medicine 08/27/20 Madan Roy MD [address] [place] [address] Physician Radiation Oncology 04/28/20 Luly Gaffney RN Specialty Business Communications Instructor Oncology 05/18/20 Richard Jenkins DO [address] [place] [address] Referring Hematology/Oncology 05/25/20 Haroldo Noland MD [address] [place] [address] Cardiology 06/24/20 Sena Seymour, MICHELE Telegraph Editor 10/06/20 Bud Beck DO [address] [place] [address] Gastroenterology 01/15/24 Skip Pitman Relationship Specialty Start Date End Date Yaw Singh MD [address] [facility] [place] [address] PCP - General Family Medicine 08/27/20 Madan Roy MD [address] [place] [address] Physician Radiation Oncology 04/28/20 Luly Gaffney RN Specialty Business Communications Instructor Oncology 05/18/20 Richard Jenkins DO [address] [place] [address] Referring Hematology/Oncology 05/25/20 Haroldo Noland MD [address] [place] [address] Cardiology 06/24/20 Sena Seymour, RN Telegraph Editor 10/06/20 Bud Beck DO [address] [facility] [address] [place] [address] Gastroenterology 01/15/24 JimyazStar dicksona 01/29/24 Skip Pitman Relationship Specialty Start Date End Date Yaw Singh MD [address] [facility] [place] [address] PCP - General Family Medicine 08/27/20 Madan Roy MD [address] [facility] [place] [address] Physician Radiation Oncology 04/28/20 Luly Gaffney RN Specialty Business Communications Instructor Oncology 05/18/20 Richard Jenkins DO [address] [facility] [place] [address] Referring Hematology/Oncology 05/25/20 Haroldo Noland MD [address] [facility] [address] [place] [address] Cardiology 06/24/20 Sena Seymour, MICHELE Telegraph Editor 10/06/20 Bud Beck DO [address] [facility] [address] [place], [place] [address] Gastroenterology 01/15/24 JimyazHelen dickson 01/29/24 Skip Pitman Relationship Specialty Start Date End Date Yaw Singh MD [address] [facility] [place] [place] [address] PCP - General Family Medicine 08/27/20 Madan Roy MD [address] [place] [address] Physician Radiation Oncology 04/28/20 Luly Gaffney RN Specialty Business Communications Instructor Oncology 05/18/20 Richard Jenkins DO [address] [place] [address] Referring Hematology/Oncology 05/25/20 Haroldo Noland MD [address] [place] [address] Cardiology 06/24/20 Sena Seymour, MICHELE Telegraph Editor 10/06/20 Bud Beck DO [address] [place] [address] Gastroenterology 01/15/24 Paige Helen 01/29/24 Skip Pitman Relationship Specialty Start Date End Date Yaw Singh MD [address] [place] [address] PCP - General Family Medicine 08/27/20 Madan Roy MD [address] [place] [address] Physician Radiation Oncology 04/28/20 Luly Gaffney RN Specialty Business Communications Instructor Oncology 05/18/20 Richard Jenkins DO [address] [place] [address] Referring Hematology/Oncology 05/25/20 Haroldo Noland MD [address] [place] [address] Cardiology 06/24/20 Sena Seymour, MICHELE Telegraph Editor 10/06/20 Bud Beck DO [address] [facility] [address] [place] [address] Gastroenterology 01/15/24 Paige, Helen 01/29/24 Skip Pitman Relationship Specialty Start Date End Date Yaw Singh MD [address] [facility] [place] [place] [address] PCP - General Family Medicine 08/27/20 Madan Roy MD [address] [facility] [place] [address] Physician Radiation Oncology 04/28/20 Luly Gaffney RN Specialty Business Communications Instructor Oncology 05/18/20 Richard Jenkins DO [address] [facility] [place] [address] Referring Hematology/Oncology 05/25/20 Haroldo Noland MD [address] [facility] [address] [place] [address] Cardiology 06/24/20 Sena Seymour, MICHELE Telegraph Editor 10/06/20 Bud Beck DO [address] [facility] [address] [place], [place] [address] Gastroenterology 01/15/24 Jamia, Helen 01/29/24 Maegan Lange, MICHELE [address] [phone] Primary Care Outsole Molder 02/18/24 Skip Pitman Relationship Specialty Start Date End Date Yaw Singh MD [address] [facility] [place] [place] [address] PCP - General Family Medicine 08/27/20 Madan Roy MD [address] [place] [address] Physician Radiation Oncology 04/28/20 Luly Gaffney RN Specialty Business Communications Instructor Oncology 05/18/20 Richard Jenkins DO [address] [place], [place] 653991 Referring Hematology/Oncology 05/25/20 Haroldo Noland MD [address] [facility] [address] [place], [place] 257131 Cardiology 06/24/20 Sena Seymour, MICHELE Telegraph Editor 10/06/20 Bud Beck DO [address] [facility] [address] [place], [place] 541311 Gastroenterology 01/15/24 Helen Gibson 01/29/24 Maegan Lange, MICHELE [address] [phone] Primary Care Outsole Molder 02/18/24 03/11/24 Skip Pitman Relationship Specialty Start Date End Date Yaw Singh MD [address] [place], [place] 190241 PCP - General Family Medicine 08/27/20 Madan Roy MD [address] [place], [place] 958841 Physician Radiation Oncology 04/28/20 Luly Gaffney RN Specialty Business Communications Instructor Oncology 05/18/20 Richard Jenkins DO [address] [facility], [place] 220141 Referring Hematology/Oncology 05/25/20 Haroldo Noland MD [address] [facility] [address] [place], [place] [address] Cardiology 06/24/20 Sena Seymour, MICHELE Telegraph Editor 10/06/20 Bud Beck DO [address] [facility] [address] [place], [place] [address] Gastroenterology 01/15/24 Helen Gibson 01/29/24 Danielle Kelly APRN.[facility] [address] [place], [place] 233281 Audio Installer Family Medicine 03/15/24 Usha Mcgovern PA-C [address] [facility], [place] [address] Audio Installer Family Medicine 03/15/24 Skip Pitman Relationship Specialty Start Date End Date Yaw Singh MD [address] [place] [address] PCP - General Family Medicine 08/27/20 Madan Roy MD [address] [place] [address] Physician Radiation Oncology 04/28/20 Luly Gaffney RN Specialty Business Communications Instructor Oncology 05/18/20 Richard Jenkins DO [address] [place], [place] 406421 Referring Hematology/Oncology 05/25/20 Haroldo Noland MD [address] [facility] [address] [place], [place] 450431 Cardiology 06/24/20 Sena Seymour, RN Telegraph Editor 10/06/20 Bud Beck DO [address] [facility] [address] [place], [place] [id number] Gastroenterology 01/15/24 Paige Helen 01/29/24 Danielle Kelly APRN.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 [address] [place], [place] [id number] [facility]ly [facility] 03/15/24 Usha Mcgovern PA-C [address] [place], [place] [id number] Formerly [facility] 03/15/24 Skip Pitman Relationship Specialty Start Date End Date Yaw Singh MD [address] [place], [place] 33211691 PCP - General Family Medicine 08/27/20 Madan Roy MD [address] [place], [place] 45615691 Physician Radiation Oncology 04/28/20 Luly Gaffney RN Specialty Business Communications Instructor Oncology 05/18/20 Richard Jenkins DO [address] [facility] [place] [address] Referring Hematology/Oncology 05/25/20 Haroldo Noland MD [address] [facility] [address] [place], [place] [address] Cardiology 06/24/20 Sena Seymour, RN Telegraph Editor 10/06/20 Bud Beck DO [address] [id number] Gastroenterology 01/15/24 Star Gibsona 01/29/24 Danielle Kelly APRN.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 [address] [place], [place] [id number] Audio Installer [facility] 03/15/24 Usha Mcgovern PA-C [address] [place], [place] [id number] Formerly [facility] 03/15/24 Skip Pitman Relationship Specialty Start Date End Date Yaw Singh MD [address] [place], [place] 40665[address] PCP - General Family Medicine 08/27/20 Madan Roy MD [address] [facility] [place], [place] 55415691 Physician Radiation Oncology 04/28/20 Luly Gaffney RN Specialty Business Communications Instructor Oncology 05/18/20 Richard Jenkins DO [address] [facility] [place], [place] 07406[address] Referring Hematology/Oncology 05/25/20 Haroldo Noland MD [address] [facility] [address] [place], [place] 92561691 Cardiology 06/24/20 Sena Seymour RN Telegraph Editor 10/06/20 Bud Beck DO [address] [facility] [address] [place], [place] [id number] Gastroenterology 01/15/24 Turkbijana, Helen 01/29/24 Danielle Kelly APRN.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 [address] [place], [place] 547721 Audio Installer Family Medicine 03/15/24 Usha Mcgovern PA-C [address] [place], [place] [id number] Audio Installer [facility] 03/15/24 Skip Pitman Relationship Specialty Start Date End Date Yaw Singh MD [address] [place], [place] 74870691 PCP - General Family Medicine 08/27/20 Madan Roy MD [address] [place] [address] Physician Radiation Oncology 04/28/20 Luly Gaffney RN Specialty Business Communications Instructor Oncology 05/18/20 Richard Jenkins DO [address] [place], [place] 18286691 Referring Hematology/Oncology 05/25/20 Haroldo Noland MD [address] [address] Cardiology 06/24/20 Sena Seymour, MICHELE Telegraph Editor 10/06/20 Bud Beck DO [address] [id number] Gastroenterology 01/15/24 Turkbijana, Helen 01/29/24 Dainelle Kelly APRN.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 [address] [place] [address] Audio Installer Family Medicine 03/15/24 Usha Mcgovern PA-C [address] [place], [place] 975761 Audio Installer Family [facility] 03/15/24 Skip Pitman Relationship Specialty Start Date End Date Yaw Singh MD [address] [place], [place] 598501 PCP - General Family Medicine 08/27/20 Madan Ryo MD [address] [place], [place] 063921 Physician Radiation Oncology 04/28/20 Luly Gaffney RN Specialty Business Communications Instructor Oncology 05/18/20 Richard Jenkins DO [address] [place], [place] 15733691 Referring Hematology/Oncology 05/25/20 Haroldo Noland MD [address] [facility] [address] [place] [address] Cardiology 06/24/20 Sena Seymour, MICHELE Telegraph Editor 10/06/20 Bud Beck DO [address] [facility] [place], [place] [address]1941 Gastroenterology 01/15/24 Helen Gibson 01/29/24 Danielle Kelly APRN.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 [address] [place], [place] [id number] Audio Installer Family [facility] 03/15/24 Usha Mcgovern PA-C [address] [facility] [place] [address] Audio Installer Family Medicine 03/15/24 Skip Pitman Relationship Specialty Start Date End Date Yaw Singh MD [address] [facility] [place] [place] [address] PCP - General Family Medicine 08/27/20 Madan Roy MD [address] [facility] [place] [address] Physician Radiation Oncology 04/28/20 Luly Gaffney RN Specialty Business Communications Instructor Oncology 05/18/20 Richard Jenkins DO [address] [facility] [place] [address] Referring Hematology/Oncology 05/25/20 Haroldo Noland MD [address] [place] [address] Cardiology 06/24/20 Sena Seymour, RN Telegraph Editor 10/06/20 Bud Beck DO [address] [place] [address] Gastroenterology 01/15/24 Helen Gibson 01/29/24 Danielle Kelly, ADALGISA.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 [address]40 [facility], [place] 126991 Audio Installer Family Medicine 03/15/24 Usha Mcgovern PA-C [address] [facility] [place] [place] [address] Audio Installer Family Medicine 03/15/24 Skip Pitman Relationship Specialty Start Date End Date Yaw Singh MD [address] [place] [address] PCP - General Family Medicine 08/27/20 Madan Roy MD [address] [place] [address] Physician Radiation Oncology 04/28/20 Luly Gaffney RN Specialty Business Communications Instructor Oncology 05/18/20 Richard Jenkins DO [address] [place], [place] 376961 Referring Hematology/Oncology 05/25/20 Haroldo Noland MD [address] [place], [place] 763391 Cardiology 06/24/20 Sena Seymour, RN Telegraph Editor 10/06/20 Bud Beck DO [address] [facility] [address] [place], [place] [address]8711 Gastroenterology 01/15/24 Helen Gibson 01/29/24 Danielle Kelly APRN.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 [address] [place], [place] 775071 Audio Installer Family Medicine 03/15/24 Usha Mcgovern PA-C [address] [place], [place] [id number] Audio Installer Family Medicine 03/15/24 Helen Blair MD [address] [address] Pulmonary and Critical Care Medicine 05/08/24 Skip Pitman Relationship Specialty Start Date End Date Yaw Singh MD [address] [place], [place] 167561 PCP - General Family Medicine 08/27/20 Madan Roy MD [address] [place] [address] Physician Radiation Oncology 04/28/20 Luly Gaffney RN Specialty Business Communications Instructor Oncology 05/18/20 Richard Jenkins DO [address] [place], [place] 82929691 Referring Hematology/Oncology 05/25/20 Haroldo Noland MD [address] [facility] [address] [place], [place] 019351 Cardiology 06/24/20 Sena Seymour, MICHELE Telegraph Editor 10/06/20 Bud Beck DO [address] [facility] [address] [place], [place] 694931 Gastroenterology 01/15/24 Helen Gibson 01/29/24 Danielle Kelly APRN.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 [address] [place], [place] 484571 Audio Installer Family [facility] 03/15/24 Usha Mcgovern PA-C [address] [place], [place] [id number] Audio Installer Family Medicine 03/15/24 Helen Blair MD [address] [address] Pulmonary and Critical Care Medicine 05/08/24 Skip Pitman Relationship Specialty Start Date End Date Yaw Singh MD [address] [place] [address] PCP - General Family Medicine 08/27/20 Madan Roy MD [address] [place] [address] Physician Radiation Oncology 04/28/20 Luly Gaffney RN Specialty Business Communications Instructor Oncology 05/18/20 Richard Jenkins DO [address] [place] [address] Referring Hematology/Oncology 05/25/20 Haroldo Noland MD [address] [facility]aud[facility] [address] [place] [address] Cardiology 06/24/20 Sena Seymour, MICHELE Telegraph Editor 10/06/20 Bud Beck DO [address] [facility] [address] [place], [place] [address]21 Gastroenterology 01/15/24 Helen Gibson 01/29/24 Danielle Kelly APRN.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 [address] [place] [address] Audio Installer Family [facility] 03/15/24 Usha Mcgovern PA-C [address] [place] [address] Audio Installer Family Medicine 03/15/24 Helen Blair MD [address] [place] [address] Pulmonary and Critical Care Medicine 05/08/24 Skip Pitman Relationship Specialty Start Date End Date Yaw Singh MD [address] [place], [place] 209841 PCP - General Family Medicine 08/27/20 Madan Roy MD [address] [place], [place] 320671 Physician Radiation Oncology 04/28/20 Luly Gaffney RN Specialty Business Communications Instructor Oncology 05/18/20 Richard Jenkins DO [address] [place], [place] 12788691 Referring Hematology/Oncology 05/25/20 Haroldo Noland MD [address] [facility] [address] [place], [place] 896381 Cardiology 06/24/20 Sena Seymour, MICHELE Telegraph Editor 10/06/20 Bud Beck DO [address] [facility] [address] [place], [place] 831701 Gastroenterology 01/15/24 Helen Gibson 01/29/24 Danielle Kelly APRN.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 [address] [place], [place] [id number] Audio Installer Family Medicine 03/15/24 Usha Mcgovern PA-C [address] [place], [place] [id number] Audio Installer Family Medicine 03/15/24 Helen Blair MD [address] [place] [address] [phone] Pulmonary and Critical Care Medicine 05/08/24 Skip Pitman Relationship Specialty Start Date End Date Yaw Singh MD [address] [place], [place] 345751 PCP - General Family Medicine 08/27/20 Madan Roy MD [address] [place], [place] 51594691 Physician Radiation Oncology 04/28/20 Luly Gaffney RN Specialty Business Communications Instructor Oncology 05/18/20 Richard Jenkins DO [address] [place], [place] [phone] Referring Hematology/Oncology 05/25/20 Haroldo Noland MD [address] [facility] [address] [place] [address] Cardiology 06/24/20 Sena Seymour, MICHELE Telegraph Editor 10/06/20 Bud Beck DO [address] [facility] [address] [place], [place] 799241 Gastroenterology 01/15/24 Helen Gibson 01/29/24 Danielle Kelly APRN.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 [address] [place], [place] [id number] Audio Installer Family Medicine 03/15/24 Usha Mcgovern PA-C [address] [place], [place] [id number] Audio Installer Family Medicine 03/15/24 Helen Blair MD [address] [place] [address] [phone] Pulmonary and Critical Care Medicine 05/08/24 Skip Pitman Relationship Specialty Start Date End Date Yaw Singh MD [address] [place], [place] [id number] PCP - General Family Medicine 08/27/20 Madan Roy MD [address] [place], [place] 41295691 Physician Radiation Oncology 04/28/20 Luly Gaffney RN Specialty Business Communications Instructor Oncology 05/18/20 Richard Jenkins DO [address] [place], [place] 44745691 Referring Hematology/Oncology 05/25/20 Haroldo Noland MD [address] [facility] [place], [place] 052491 Cardiology 06/24/20 Sena Seymour, MICHELE Telegraph Editor 10/06/20 Bud Beck DO [address] [facility] [address] [place], [place] [phone] Gastroenterology 01/15/24 Helen Gibson 01/29/24 Danielle Kelly, ADALGISA.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 [address] [place], [place] [id number] Audio Installer Family Medicine 03/15/24 Usha Mcgovern PA-C [address] [place], [place] [id number] Audio Installer Family Medicine 03/15/24 Helen Blair MD [address] [place] [address] [phone] Pulmonary and Critical Care Medicine 05/08/24 Skip Pitman Relationship Specialty Start Date End Date Yaw Singh MD [address] [place], [place] [id number] PCP - General Family Medicine 08/27/20 Madan Roy MD [address] [place], [place] 89517691 Physician Radiation Oncology 04/28/20 Luly Gaffney RN Specialty Business Communications Instructor Oncology 05/18/20 Richard Jenkins DO [address] [place], [place] 50936691 Referring Hematology/Oncology 05/25/20 Haroldo Noland MD 1761 [facility] [place] [address] Cardiology 06/24/20 Sena Seymour, MICHELE Telegraph Editor 10/06/20 Bud Beck DO [address] [facility] [address] [place] [address] Gastroenterology 01/15/24 Helen Gibson 01/29/24 Danielle Kelly, ADALGISA.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 [address] [place], [place] [phone] Audio Installer Family Medicine 03/15/24 Usha Mcgovern PA-C [address] [place], [place] [id number] Audio Installer Family Medicine 03/15/24 Helen Blair MD [address] [place] [address] [phone] Pulmonary and Critical Care Medicine 05/08/24 Skip Pitman Relationship Specialty Start Date End Date Yaw Singh MD [address] [place], [place] [id number] PCP - General Family Medicine 08/27/20 Madan Roy MD [address] [place], [place] [phone] Physician Radiation Oncology 04/28/20 Luly Gaffney RN Specialty Business Communications Instructor Oncology 05/18/20 Richard Jenkins DO [address] [place], [place] [id number] Referring Hematology/Oncology 05/25/20 Haroldo Noland MD 1761 [facility] [place] [address] Cardiology 06/24/20 Sena Seymour, RN Telegraph Editor 10/06/20 Bud Beck DO [address] [facility] [address] [place] [address] Gastroenterology 01/15/24 Helen Gibson 01/29/24 Danielle Kelly, COMPANY DANCER.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 [address] [place], [place] [phone] Audio Installer Family Medicine 03/15/24 Usha Mcgovern PA-C [address] [place], [place] [id number] Audio Installer Family Medicine 03/15/24 Helen Blair MD [address] [place] [address] [phone] Pulmonary and Critical Care Medicine 05/08/24 Skip Pitman Relationship Specialty Start Date End Date Yaw Singh MD [address] [place], [place] [id number] PCP - General Family Medicine 08/27/20 Madan Roy MD [address] [place], [place] [id number] Physician Radiation Oncology 04/28/20 Luly Gaffney, MICHELE Specialty Business Communications Instructor Oncology 05/18/20 Richard Jenkins DO [address] [place], [place] [phone] Referring Hematology/Oncology 05/25/20 Haroldo Noland MD 1761 [facility] [address] [place] [address] Cardiology 06/24/20 Sena Seymour, MICHELE Telegraph Editor 10/06/20 Bud Beck DO [address] [facility] [address] [place], [place] 768141 Gastroenterology 01/15/24 Helen Gibson 01/29/24 Danielle Kelly APRN.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 [address] [place], [place] [phone] Audio Installer Family Medicine 03/15/24 Usha Mcgovern PA-C [address] [place], [place] [id number] Audio Installer Family Medicine 03/15/24 Helen Blair MD [address] [phone] Pulmonary and Critical Care Medicine 05/08/24 Skip Pitman Relationship Specialty Start Date End Date Yaw Singh MD [address] [place], [place] 769391 PCP - General Family Medicine 08/27/20 Madan Roy MD [address] [place], [place] [phone] Physician Radiation Oncology 04/28/20 Luly Gaffney RN Specialty Business Communications Instructor Oncology 05/18/20 Richard Jenkins DO [address] [place], [place] [phone] Referring Hematology/Oncology 05/25/20 Haroldo Noland MD [address]61 [facility] [address] [place] [address] Cardiology 06/24/20 Sena Seymour, RN Telegraph Editor 10/06/20 Bud Beck DO [address]61 [facility] [address] [place], [place] 9[address]151 Gastroenterology 01/15/24 Helen Gibson 01/29/24 Danielle Kelly APRN.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 [address] [place], [place] [id number] Audio Installer Family Medicine 03/15/24 Usha Mcgovern PA-C [address] [place], [place] [id number] Audio Installer Family Medicine 03/15/24 Helen Blair MD [address] [phone] Pulmonary and Critical Care Medicine 05/08/24 Skip Pitman Relationship Specialty Start Date End Date Yaw Singh MD [address] [place], [place] 854141 PCP - General Family Medicine 08/27/20 Madan Roy MD [address] [place], [place] [id number] Physician Radiation Oncology 04/28/20 Luly Gaffney, MICHELE Specialty Business Communications Instructor Oncology 05/18/20 Richard Jenkins DO [address] [place], [place] [phone] Referring Hematology/Oncology 05/25/20 Haroldo Noland MD 1761 [facility] [address] [place] [address] Cardiology 06/24/20 Sena Seymour, MICHELE Telegraph Editor 10/06/20 Bud Beck DO 1761 [facility] [address] [place], [place] [address]371 Gastroenterology 01/15/24 Helne Gibson 01/29/24 Danielle Kelly APRN.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 [address] [place], [place] [id number] Audio Installer Family Medicine 03/15/24 Usha Mcgovern PA-C [address] [place], [place] [phone] Audio Installer Family Medicine 03/15/24 Helen Blair MD [address] [phone] Pulmonary and Critical Care Medicine 05/08/24 Skip Pitman Relationship Specialty Start Date End Date Yaw Singh MD [address] [place] [address] PCP - General Family Medicine 08/27/20 Madan Roy MD [address] [place] [address] Physician Radiation Oncology 04/28/20 Luly Gaffney RN Specialty Business Communications Instructor Oncology 05/18/20 Richard Jenkins DO [address] [place], [place] [phone] Referring Hematology/Oncology 05/25/20 Haroldo Noland MD 1761 [facility] [address] [place] [address] Cardiology 06/24/20 Sena Seymour, RN Telegraph Editor 10/06/20 Bud Beck DO [address] [facility] [facility] [address] [place] [address] Gastroenterology 01/15/24 Helen Gibson 01/29/24 Danielle Kelly APRN.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 [address] [place], [place] [id number] Audio Installer Family Medicine 03/15/24 Usha Mcgovern PA-C [address] [place] [address] Audio Installer Family Medicine 03/15/24 Helen Blair MD [address] [address] Pulmonary and Critical Care Medicine 05/08/24 Skip Pitman Relationship Specialty Start Date End Date Yaw Singh MD [address] [place] [address] PCP - General Family Medicine 08/27/20 Madan Roy MD [address] [place] [address] Physician Radiation Oncology 04/28/20 Luly Gaffney RN Specialty Business Communications Instructor Oncology 05/18/20 Richard Jenkins DO [address] [place] [address] Referring Hematology/Oncology 05/25/20 Haroldo Noland MD [address] [facility] [address] [place] [address] Cardiology 06/24/20 Sena Seymour, RN Telegraph Editor 10/06/20 Bud Beck DO [address] [facility] [address] [place] [address] Gastroenterology 01/15/24 Helen Gibson 01/29/24 Danielle Kelly APRN.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 [address] [place] [address] Audio Installer Family Medicine 03/15/24 Usha Mcgovern PA-C [address] [place] [address] Audio Installer Family Medicine 03/15/24 Helen Blair MD [address] [place] [address] Pulmonary and Critical Care Medicine 05/08/24 Team [...] Provider Active Start : June 30, 2024 Skip Pitman Relationship Specialty Start Date End Date Yaw Singh MD [address] [place], [place] [phone] PCP - General Family Medicine 08/27/20 Madan Roy MD [address] [place] [address] Physician Radiation Oncology 04/28/20 Luly Gaffney RN Specialty Business Communications Instructor Oncology 05/18/20 Richard Jenkins DO [address] [place], [place] [phone] Referring Hematology/Oncology 05/25/20 Haroldo Noland MD [address] [facility] [address] [place], [place] 276601 Cardiology 06/24/20 Sena Seymour, MICHELE Telegraph Editor 10/06/20 Bud Beck DO [address] [id number] Gastroenterology 01/15/24 Paige Helen 01/29/24 Danielle Kelly APRN.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 [address] [place], [place] 396671 Audio Installer Family Medicine 03/15/24 Usha Mcgovern PA-C [address] [place] [address] Audio Installer Family Medicine 03/15/24 Helen Blair MD [address] [place] [address] Pulmonary and Critical Care Medicine 05/08/24 Skip Pitman Relationship Specialty Start Date End Date Yaw Singh MD [address] [place] [address] PCP - General Family Medicine 08/27/20 Madan Roy MD [address] [place] [address] Physician Radiation Oncology 04/28/20 Luly Gaffney RN Specialty Business Communications Instructor Oncology 05/18/20 Richard Jenkins DO [address] [place] [address] Referring Hematology/Oncology 05/25/20 Haroldo Noland MD [address]61 [facility] [address] [place], [place] 528731 Cardiology 06/24/20 Sena Seymour, MICHELE Telegraph Editor 10/06/20 Bud Beck DO [address] [facility] [address] [address] Gastroenterology 01/15/24 Helen Gibson 01/29/24 Danielle Kelly APRN.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 [address] [place], [place] 410291 Audio Installer Family Medicine 03/15/24 Usha Mcgovern PA-C [address] [place] [address] Audio Installer Family Medicine 03/15/24 Helen Blair MD [address] [place] [address] Pulmonary and Critical Care Medicine 05/08/24 Josue Oquendo, dollymanCashier 07/10/24 Skip Pitman Relationship Specialty Start Date End Date Yaw Singh MD [address] [place], [place] [id number] PCP - General Family Medicine 08/27/20 Madan Roy MD [address] [place], [place] 979781 Physician Radiation Oncology 04/28/20 Luly Gaffney RN Specialty Business Communications Instructor Oncology 05/18/20 Richard Jenkins DO [address] [place] [address] Referring Hematology/Oncology 05/25/20 Haroldo Noland MD [address] [facility] [address] [place], [place] 032081 Cardiology 06/24/20 Sena Seymour, RN Telegraph Editor 10/06/20 Bud Beck DO [address] [place] [address] [place], [place] [phone] Gastroenterology 01/15/24 Helen Gibson 01/29/24 Danielle Kelly APRN.[facility] [address] [place], [place] [phone] Formerly [facility] 03/15/24 Usha Mcgovern PA-C [address] [place], [place] [phone] Formerly [facility] 03/15/24 Helen Blair MD [address] [place] [address] [phone] Pulmonary and Critical Care Medicine 05/08/24 Josue Oquendo dollymanCashier 07/10/24 Skip Pitman Relationship Specialty Start Date End Date Yaw Singh MD [address] [place] [address] PCP - General Family Medicine 08/27/20 Madan Roy MD [address] [place], [place] [phone] Physician Radiation Oncology 04/28/20 Luly aGffney RN Specialty Business Communications Instructor Oncology 05/18/20 Richard Jenkins DO [address] [place] [address] Referring Hematology/Oncology 05/25/20 Haroldo Noland MD [address] [address] [place], [place] 147771 Cardiology 06/24/20 Sena Seymour, MICHELE Telegraph Editor 10/06/20 Bud Beck DO [address] [facility] [place], [place] 11138691 Gastroenterology 01/15/24 Helen Gibson 01/29/24 Danielle Kelly APRN.[facility] [address] [place], [place] [phone] Audio Installer [facility] 03/15/24 Usha Mcgovern PA-C [address] [place], [place] [phone] Formerly [facility] 03/15/24 Helen Blair MD [address] [phone] Pulmonary and Critical Care Medicine 05/08/24 Josue Oquendo RN Cashier 07/10/24 Skip Pitman Relationship Specialty Start Date End Date Yaw Singh MD [address] [place], [place] [id number] PCP - General Family Medicine 08/27/20 Madan Roy MD [address] [place], [place] 86327691 Physician Radiation Oncology 04/28/20 Luly Gaffney RN Specialty Business Communications Instructor Oncology 05/18/20 Richard Jenkins DO [address] [place], [place] 91370691 Referring Hematology/Oncology 05/25/20 Haroldo Noland MD [address] [phone] Cardiology 06/24/20 Sena Seymour, MICHELE Telegraph Editor 10/06/20 Bud Beck DO [address] [facility] [address] [place], [place] 098521 Gastroenterology 01/15/24 Helen Gibson 01/29/24 Danielle Kelly APRN.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 [address] [place], [place] [phone] [facility] 03/15/24 Usha Mcgovern PA-C [address] [place], [place] [phone] Formerly [facility] 03/15/24 Helen Blair MD [address] [phone] Pulmonary and Critical Care Medicine 05/08/24 Josue Oquendo dollymanCashier 07/10/24 08/19/24 Skip Pitman Relationship Specialty Start Date End Date Yaw Singh MD [address] [place], [place] [id number] PCP - General Family Medicine 08/27/20 Madan Roy MD [address] [place] [address] Physician Radiation Oncology 04/28/20 Luly Gaffney RN Specialty Business Communications Instructor Oncology 05/18/20 Richard Jenkins DO [address] [place] [phone] Referring Hematology/Oncology 05/25/20 Haroldo Nolnad MD [address] [facility] [address] [place], [place] 56004691 Cardiology 06/24/20 Sena Seymour, RN Telegraph Editor 10/06/20 Bud Beck DO [address] [id number] Gastroenterology 01/15/24 Helen Gibson 01/29/24 Danielle Kelly APRN.[facility] [address] [place], [place] [phone] Audio Installer [facility] 03/15/24 Usha Mcgovern PA-C [address] [place], [place] [phone] Formerly [facility] 03/15/24 Helen Blair MD [address] [phone] Pulmonary and Critical Care Medicine 05/08/24 Skip Pitman Relationship Specialty Start Date End Date Yaw Singh MD [address] [place], [place] [id number] PCP - General Family Medicine 08/27/20 Madan Roy MD [address] [place] [phone] Physician Radiation Oncology 04/28/20 Luly Gaffney RN Specialty Business Communications Instructor Oncology 05/18/20 Richard Jenkins DO [address] [place] [phone] Referring Hematology/Oncology 05/25/20 Haroldo Noland MD [address] [facility] [address] [place], [place] [id number] Cardiology 06/24/20 Sena Seymour, MICHELE Telegraph Editor 10/06/20 Bud Beck DO [address] 34[address] Gastroenterology 01/15/24 Helen Gibson 01/29/24 Danielle Kelly APRN.[facility] [address] [place], [place] [phone] Audio Installer [facility] 03/15/24 Usha Mcgovern PA-C [address] [place], [place] [phone] Formerly [facility] 03/15/24 Helen Blair MD [address] [phone] Pulmonary and Critical Care Medicine 05/08/24 Skip Pitman Relationship Specialty Start Date End Date Yaw Singh MD [address] [place], [place] 55922691 PCP - General Family Medicine 08/27/20 Madan Roy MD [address] [facility] [place] [place] 30868691 Physician Radiation Oncology 04/28/20 Luly Gaffney RN Specialty Business Communications Instructor Oncology 05/18/20 Richard Jenkins DO [address] [facility] [place], [place] [phone] Referring Hematology/Oncology 05/25/20 Haroldo Noland MD [address] [facility] [address] [place], [place] 14760691 Cardiology 06/24/20 Sena Seymour, RN Telegraph Editor 10/06/20 Bud Bekc DO [address] 56[address] Gastroenterology 01/15/24 Helen Gibson 01/29/24 Danielle Kelly APRN.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 [address] [place], [place] [phone] Audio Installer Family [facility] 03/15/24 08/24/24 Usha Mcgovern PA-C [address] [place] [address] [id number] Audio Installer Family [facility] 03/15/24 Helen Blair MD [address] [phone] Pulmonary and Critical Care Medicine 05/08/24 Josue Oquendo, dollymanCashier 07/10/24 08/19/24 Skip Pitman Relationship Specialty Start Date End Date Yaw Singh MD [address] [place], [place] [id number] PCP - General Family Medicine 08/27/20 Madan Roy MD [address] [place], [place] [phone] Physician Radiation Oncology 04/28/20 Luly Gaffney RN Specialty Business Communications Instructor Oncology 05/18/20 Richard Jenkins DO [address] [place], [place] [phone] Referring Hematology/Oncology 05/25/20 Haroldo Noland MD [address] [facility] [address] [place], [place] 633291 Cardiology 06/24/20 Sena Seymour, RN Telegraph Editor 10/06/20 Friend, Bud Paul DO [address] [facility] [facility] [address] [place], [place] 800431 Gastroenterology 01/15/24 Helen Gibson 01/29/24 Usha Mcgovern PA-C [address] [place], [place] [phone] Audio Installer Family Medicine 03/15/24 Helen Blair MD [address] [phone] Pulmonary and Critical Care Medicine 05/08/24 Team Status: Inactive Member Role Status Dates Dr. Yaw Singh MD Primary Care Provider Active Start: July 22, 2024 End: July 22, 2024 Dr. Yaw Singh MD Referring Provider Active Start: July 22, 2024 End: July 22, 2024 SHEILA Beckre Attending Provider Active Star t: July 22, [...] September 02, 2024 End: September 02, 2024 Skip Pitman Relationship Specialty Start Date End Date Yaw Singh MD [address] [place], [place] 920071 PCP - General Family Medicine 08/27/20 Madan Roy MD [address] [place] [address] Physician Radiation Oncology 04/28/20 Luly Gaffney, MICHELE Specialty Business Communications Instructor Oncology 05/18/20 Richard Jenkins DO [address] [place] [address] Referring Hematology/Oncology 05/25/20 Haroldo Noland MD [address] [facility] [address] [place], [place] 445101 Cardiology 06/24/20 Sena Seymour RN Telegraph Editor 10/06/20 Bud Beck DO [address] [facility] [address] [place], [place] 032491 Gastroenterology 01/15/24 Helen Gibson 01/29/24 Usha Mcgovern PA-C [address] [place] [address] Audio Installer Family Medicine 03/15/24 Helen Blair MD [address] [phone] Pulmonary and Critical Care Medicine 05/08/24 Skip Pitman Relationship Specialty Start Date End Date Yaw Singh MD [address] [place], [place] 157501 PCP - General Family Medicine 08/27/20 Madan Roy MD [address] [place] [place] [address] Physician Radiation Oncology 04/28/20 Luly Gaffney RN Specialty Business Communications Instructor Oncology 05/18/20 Richard Jenkins DO [address] [place], [place] 400721 Referring Hematology/Oncology 05/25/20 Haroldo Noland MD [address] [facility] [address] [place] [address] Cardiology 06/24/20 Sena Seymour, MICHELE Telegraph Editor 10/06/20 Bud Beck DO [address] [facility] [address] [place], [place] 556871 Gastroenterology 01/15/24 Helen Gibson 01/29/24 Helen Blair MD [address] [phone] Pulmonary and Critical Care Medicine 05/08/24 Danielle Kelly APRN.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 [address] [place], [place] [phone] Formerly [facility] 09/08/24 Usha Mcgovern PA-C [address] [place], [place] 133481 Formerly [facility] 09/08/24 Skip Pitman Relationship Specialty Start Date End Date Yaw Singh MD [address] [place], [place] [id number] PCP - General Family Medicine 08/27/20 Madan Roy MD [address] [place] [address] Physician Radiation Oncology 04/28/20 Luly Gaffney RN Specialty Business Communications Instructor Oncology 05/18/20 Richard Jenkins DO [address] [place], [place] [phone] Referring Hematology/Oncology 05/25/20 Haroldo Noland MD [address] [facility] [facility] [address] [place] [address] Cardiology 06/24/20 Sena Seymour, MICHELE Telegraph Editor 10/06/20 Bud Beck DO [address] [facility] [address] [place], [place] [phone] Gastroenterology 01/15/24 Helen Gibson 01/29/24 Danielle Kelly, ADALGISA.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 [address] [place] [address] Audio Installer Family Medicine 03/15/24 08/24/24 Usha Mcgovern PA-C [address] [place] [address] [phone] Audio Installer Family Medicine 03/15/24 09/07/24 Helen Blair MD [address] [address] Pulmonary and Critical Care Medicine 05/08/24 Josue Oquendo RN Cashier 07/10/24 08/19/24 Danielle Kelly, ADALGISA.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 [facility] [place], [place] 945001 Audio Installer Family [facility] 09/08/24 Usha Mcgovern PA-C [facility]0 [place], [place] [phone] Audio Installer Family Medicine 09/08/24 Skip Pitman Relationship Specialty Start Date End Date Yaw Singh MD [address] [place], [place] [phone] PCP - General Family Medicine 08/27/20 Madan Roy MD [address] [place], [place] 15326691 Physician Radiation Oncology 04/28/20 Luly Gaffney, MICHELE Specialty Business Communications Instructor Oncology 05/18/20 Richard Jenkins DO [address] [place], [place] [phone] Referring Hematology/Oncology 05/25/20 Haroldo Noland MD 1761 [facility] [address] [place] [address] Cardiology 06/24/20 Sena Seymour, MICHELE Telegraph Editor 10/06/20 Bud Beck DO [address]61 [facility] [address] [place], [place] 557041 Gastroenterology 01/15/24 Helen Gibson 01/29/24 Helen Blair MD [address] [address] Pulmonary and Critical Care Medicine 05/08/24 Danielle Kelly APRN.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 [address] [place], [place] [phone] Audio Installer Family [facility] 09/08/24 Usha Mcgovern PA-C [address] [place] [address] Audio Installer Family Medicine 09/08/24 Skip Pitman Relationship Specialty Start Date End Date Yaw Singh MD [address] [place], [place] 686631 PCP - General Family Medicine 08/27/20 Madan Roy MD [address] [place], [place] 239461 Physician Radiation Oncology 04/28/20 Luly Gaffney RN Specialty Business Communications Instructor Oncology 05/18/20 Richard Jenkins DO [address] [place], [place] [phone] Referring Hematology/Oncology 05/25/20 Haroldo Noland MD [address] [place] [address] [place] [address] Cardiology 06/24/20 Sena Seymour, MICHELE Telegraph Editor 10/06/20 Bud Beck DO [address] [place] [address] [place] [address] Gastroenterology 01/15/24 Helen Gibson 01/29/24 Helen Blair MD [address] [address] Pulmonary and Critical Care Medicine 05/08/24 Danielle Kelly APRN.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 [address] [place], [place] [phone] Audio Installer Family Medicine 09/08/24 Usha Mcgovern PA-C [address] [place], [place] 440561 Audio Installer Family Medicine 09/08/24 Team Status: Inactive Member Role Status Dates Dr. Yaw Singh MD Primary Care Provider Active Start: September 17, 2024 End: September 17, 2024 Dr. Sushant Tom MD Emergency Provider Active Sta rt: September 17, 2024 End: September 17, 2024 Skip Pitman Relationship Specialty Start Date End Date Yaw Singh MD [address] [place], [place] 264141 PCP - General Family Medicine 08/27/20 Madan Roy MD [address] [place] [address] Physician Radiation Oncology 04/28/20 Luly Gaffney RN Specialty Business Communications Instructor Oncology 05/18/20 Richard Jenkins DO [address] [place] [address] Referring Hematology/Oncology 05/25/20 Haroldo Noland MD [address] [facility] [address] [place] [address] Cardiology 06/24/20 Sena Seymour, MICHELE Telegraph Editor 10/06/20 Bud Beck DO [address] [facility] [address] [place], [place] 282301 Gastroenterology 01/15/24 Helen Gibson 01/29/24 Helen Blair MD [address] [address] Pulmonary and Critical Care Medicine 05/08/24 Danielle Kelly APRN.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 1740 [facility], [place] 673961 Audio Installer Family Medicine 09/08/24 Usha Mcgovern PA-C [address]40 [facility] [place] [address] Audio Installer Family Medicine 09/08/24 Skip Pitman Relationship Specialty Start Date End Date Yaw Singh MD [address]40 [facility] [place] [place] [address] PCP - General Family Medicine 08/27/20 Madan Roy MD [address] [place] [address] Physician Radiation Oncology 04/28/20 Luly Gaffney RN Specialty Business Communications Instructor Oncology 05/18/20 Richard Jenkins DO [address] [place], [place] 587521 Referring Hematology/Oncology 05/25/20 Haroldo Noland MD [address] [facility] [address] [place] [address] Cardiology 06/24/20 Sena Seymour, MICHELE Telegraph Editor 10/06/20 Bud Beck DO [address] [place] [address] [place] [address] Gastroenterology 01/15/24 Helen Gibson 01/29/24 Helen Blair MD [address] [phone] Pulmonary and Critical Care Medicine 05/08/24 Danielle Kelly APRN.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 1740 [facility], [place] 698471 Audio Installer Family Medicine 09/08/24 Usha Mcgovern PA-C [address]40 [facility] [place] [place] [address] Audio Installer Family [facility] 09/08/24 Skip Pitman Relationship Specialty Start Date End Date Yaw Singh MD [address]40 [facility], [place] 7613[address] PCP - General Family Medicine 08/27/20 Madan Roy MD [address] [place] [address] Physician Radiation Oncology 04/28/20 Luly Gaffney RN Specialty Business Communications Instructor Oncology 05/18/20 Richard Jenkins DO [address] [facility], [place] [phone] Referring Hematology/Oncology 05/25/20 Haroldo Noland MD [address] [facility] [address] [place] [address] Cardiology 06/24/20 Sena Seymour, MICHELE Telegraph Editor 10/06/20 Bud Beck DO [address] [facility] [address] [place], [place] 162901 Gastroenterology 01/15/24 Helen Gibson 01/29/24 Helen Blair MD [address] [place] [address] [phone] Pulmonary and Critical Care Medicine 05/08/24 Danielle Kelly APRN.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 1740 [facility], [place] 411141 Audio Installer Family Medicine 09/08/24 Usha Mcgovern PA-C [address]40 [facility] [place] [place] [address] Audio Installer [facility] 09/08/24 Skip Pitman Relationship Specialty Start Date End Date Yaw Singh MD [address]40 [facility], [place] 609191 PCP - General Family Medicine 08/27/20 Madan Roy MD [address] [place], [place] 513591 Physician Radiation Oncology 04/28/20 Luly Gaffney RN Specialty Business Communications Instructor Oncology 05/18/20 Richard Jenkins DO [address] [place], [place] [phone] Referring Hematology/Oncology 05/25/20 Haroldo Noland MD [address] [facility] [address] [place], [place] 667211 Cardiology 06/24/20 Sena Seymour, RN Telegraph Editor 10/06/20 Bud Beck DO [address] [facility] [address] [place], [place] 755081 Gastroenterology 01/15/24 Helen Gibson 01/29/24 Helen Blair MD [address] [place] [address] [phone] Pulmonary and Critical Care Medicine 05/08/24 Danielle Kelly APRN.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 [address] [place], [place] 302801 Audio Installer Family [facility] 09/08/24 Usha Mcgovern PA-C [address] [place], [place] [phone] Audio Installer [facility] 09/08/24 Skip Pitman Relationship Specialty Start Date End Date Yaw Singh MD [address] [place], [place] [id number] PCP - General Family Medicine 08/27/20 Madan Roy MD [address] [place], [place] [phone] Physician Radiation Oncology 04/28/20 Luly Gaffney RN Specialty Business Communications Instructor Oncology 05/18/20 Richard Jenkins DO [address] [place], [place] [phone] Referring Hematology/Oncology 05/25/20 Haroldo Noland MD [address] [facility] [address] [place], [place] 164891 Cardiology 06/24/20 Sena Seymour, RN Telegraph Editor 10/06/20 Bud Beck DO [address] [facility] [address] [place], [place] [phone] Gastroenterology 01/15/24 Helen Gibson 01/29/24 Helen Blair MD [address] [place] [address] [phone] Pulmonary and Critical Care Medicine 05/08/24 Danielle Kelly APRN.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 [address] [place], [place] 527111 Audio Installer [facility] 09/08/24 Usha Mcgovern PA-C [address] [place], [place] [phone] Audio Installer [facility] 09/08/24 Skip Pitman Relationship Specialty Start Date End Date Yaw Singh MD [address] [place], [place] [phone] PCP - General Family Medicine 08/27/20 Madan Roy MD [address] [place], [place] [phone] Physician Radiation Oncology 04/28/20 Luly Gaffney RN Specialty Business Communications Instructor Oncology 05/18/20 Richard Jenkins DO [address] [place], [place] [phone] Referring Hematology/Oncology 05/25/20 Haroldo Noland MD [address] [facility] [address] [place], [place] 352341 Cardiology 06/24/20 Sena Seymour, RN Telegraph Editor 10/06/20 Bud Beck DO [address] [facility] [address] [place], [place] [phone] Gastroenterology 01/15/24 Helen Gibson 01/29/24 Helen Blair MD [address] [place] [address] [phone] Pulmonary and Critical Care Medicine 05/08/24 Danielle Kelly APRN.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 [address] [place], [place] [phone] Formerly [facility] 09/08/24 Usha Mcgovern PA-C [address] [place], [place] [id number] Formerly [facility] 09/08/24 Skip Pitman Relationship Specialty Start Date End Date Yaw Singh MD [address] [place], [place] [id number] PCP - General Family Medicine 08/27/20 Madan Roy MD [address] [place], [place] [phone] Physician Radiation Oncology 04/28/20 Luly Gaffney RN Specialty Business Communications Instructor Oncology 05/18/20 Richard Jenkins DO [address] [place], [place] [phone] Referring Hematology/Oncology 05/25/20 Haroldo Noland MD [address] [place], [place] [id number] Cardiology 06/24/20 Sena Seymour, MICHELE Telegraph Editor 10/06/20 Bud Beck DO [address] [place], [place] [phone] Gastroenterology 01/15/24 Helen Gibson 01/29/24 Helen Blair MD [address] [place] [address] [phone] Pulmonary and Critical Care Medicine 05/08/24 Danielle Kelly APRN.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 [address] [place], [place] [phone] Formerly [facility] 09/08/24 Usha Mcgovern PA-C [address] [place] [address] Formerly [facility] 09/08/24 Team Status: Active Member Role/Relationship Status Dates Dr. Yaw Singh MD Primary Care Provider Active Team Status: Inactive Member Role/Relationship Status Dates Dr. Yaw Singh MD Primary Care Provider Active Start: June 30, 2024 End: June 30, 2024 Dr. Nikita Jakcson MD Attending Provider Active S tart: June [...] Provider Active Start : October 15, 2024 Skip Pitman Relationship Specialty Start Date End Date Yaw Singh MD [address] [place], [place] [phone] PCP - General Family Medicine 08/27/20 Madan Roy MD [address] [place], [place] [phone] Physician Radiation Oncology 04/28/20 Luly Gaffney RN Specialty Business Communications Instructor Oncology 05/18/20 Richard Jenkins DO [address] [place], [place] [phone] Referring Hematology/Oncology 05/25/20 Haroldo Noland MD [address] [facility] [address] [place], [place] 710571 Cardiology 06/24/20 Sena Seymour, RN Telegraph Editor 10/06/20 Kiran Bud HumbertoDO [address] [facility] [address] [place], [place] 178941 Gastroenterology 01/15/24 Helen Gibson 01/29/24 Helen Blair MD [address] [phone] Pulmonary and Critical Care Medicine 05/08/24 Danielle Kelly APRN.[facility] [address] [place], [place] [id number] Audio Installer Family Medicine 09/08/24 Usha Mcgovern PA-C [address] [place], [place] [phone] Audio Installer [facility] 09/08/24 Skip Pitman Relationship Specialty Start Date End Date Yaw Singh MD [address] [place], [place] [phone] PCP - General Family Medicine 08/27/20 Madan Roy MD [address] [place], [place] 140261 Physician Radiation Oncology 04/28/20 Luly Gaffney RN Specialty Business Communications Instructor Oncology 05/18/20 Richard Jenkins DO [address] [place], [place] 966781 Referring Hematology/Oncology 05/25/20 Haroldo Noland MD [address] [facility] [address] [place], [place] 576921 Cardiology 06/24/20 Sena Seymour, RN Telegraph Editor 10/06/20 Bud Beck DO [address] [facility] [address] [place], [place] [address]01 Gastroenterology 01/15/24 Star Gibsona 01/29/24 Helen Blair MD [address] [phone] Pulmonary and Critical Care Medicine 05/08/24 Danielle Kelly APRN.[facility] [address] [place], [place] 653881 Audio Installer Family [facility] 09/08/24 Usha Mcgovern PA-C [address] [place], [place] [phone] Formerly [facility] 09/08/24 Skip Pitman Relationship Specialty Start Date End Date Yaw Singh MD [address] [place], [place] [phone] PCP - General Family Medicine 08/27/20 Madan Roy MD [address] [facility] [place] 481221 Physician Radiation Oncology 04/28/20 Luly Gaffney RN Specialty Business Communications Instructor Oncology 05/18/20 Richard Jenkins DO [address] [facility] [place] [phone] Referring Hematology/Oncology 05/25/20 Haroldo Noland MD [address] [facility] [address] [place], [place] 516791 Cardiology 06/24/20 Sena Seymour, RN Telegraph Editor 10/06/20 Bud Beck DO [address] [facility] [address] [place], [place] 484921 Gastroenterology 01/15/24 Helen Gibson 01/29/24 Helen Blair MD [address] [facility]. [address] [place] [address] [phone] Pulmonary and Critical Care Medicine 05/08/24 Danielle Kelly APRN.[facility] [address] [place], [place] 554641 Audio Installer Family [facility] 09/08/24 Usha Mcgovern PA-C [address] [place], [place] [phone] Formerly [facility] 09/08/24 Skip Pitman Relationship Specialty Start Date End Date Yaw Singh MD [address] [place], [place] [phone] PCP - General Family Medicine 08/27/20 Madan Roy MD [address] [place], [place] [phone] Physician Radiation Oncology 04/28/20 Luly Gaffney RN Specialty Business Communications Instructor Oncology 05/18/20 Richard Jenkins DO [address] [facility] [place] [phone] Referring Hematology/Oncology 05/25/20 Haroldo Noland MD [address] [facility] [address] [place], [place] 777691 Cardiology 06/24/20 Sena Seymour, RN Telegraph Editor 10/06/20 Bud Beck DO [address] [facility] [address] [place], [place] [phone] Gastroenterology 01/15/24 Helen Gibson 01/29/24 Helen Blair MD [address] [phone] Pulmonary and Critical Care Medicine 05/08/24 Danielle Kelly APRN.[facility] [address] [place], [place] [phone] Audio Installer Family [facility] 09/08/24 Usha Mcgovern PA-C [address] [place], [place] [phone] Formerly [facility] 09/08/24 Skip Pitman Relationship Specialty Start Date End Date Yaw Singh MD [address] [place], [place] [id number] PCP - General Family Medicine 08/27/20 Madan Roy MD [address] [place], [place] [phone] Physician Radiation Oncology 04/28/20 Luly Gaffney RN Specialty Business Communications Instructor Oncology 05/18/20 Richard Jenkins DO [address] [facility] [place] [phone] Referring Hematology/Oncology 05/25/20 Haroldo Noland MD [address] [facility] [address] [place], [place] 302451 Cardiology 06/24/20 Sena Seymour, RN Telegraph Editor 10/06/20 Bud Beck DO [address] [facility] [address] [place], [place] 583871 Gastroenterology 01/15/24 Helen Gibson 01/29/24 Helen Blair MD [address] [phone] Pulmonary and Critical Care Medicine 05/08/24 Danielle Kelly APRN.[facility] [address] [place], [place] [id number] Audio Installer Family [facility] 09/08/24 Usha Mcgovern PA-C [address] [place], [place] [phone] Audio Installer [facility] 09/08/24 Skip Pitman Relationship Specialty Start Date End Date Yaw Singh MD [address] [place], [place] [phone] PCP - General Family Medicine 08/27/20 Madan Roy MD [address] [place], [place] [phone] Physician Radiation Oncology 04/28/20 Luly Gaffney RN Specialty Business Communications Instructor Oncology 05/18/20 Richard Jenkins DO [address] [facility] [place] [phone] Referring Hematology/Oncology 05/25/20 Haroldo Noland MD [address] [facility] [address] [place], [place] 420291 Cardiology 06/24/20 Sena Seymour, MICHELE Telegraph Editor 10/06/20 Bud Beck DO [address] [facility] [address] [place], [place] 777581 Gastroenterology 01/15/24 Star Gibsona 01/29/24 Helen Blair MD [address] [phone] Pulmonary and Critical Care Medicine 05/08/24 Danielle Kelly APRN.[facility] [address] [place], [place] [phone] Audio Installer Family Medicine 09/08/24 Usha Mcgovern PA-C [address] [place], [place] [phone] Audio Installer Family [facility] 09/08/24 Skip Pitman Relationship Specialty Start Date End Date Yaw Singh MD [address] [place], [place] [phone] PCP - General Family Medicine 08/27/20 Madan Roy MD [address] [facility] [place] [phone] Physician Radiation Oncology 04/28/20 Luly Gaffney RN Specialty Business Communications Instructor Oncology 05/18/20 Richard Jenkins DO [address] [place] [phone] Referring Hematology/Oncology 05/25/20 Haroldo Noland MD [address] [facility] [address] [place], [place] 279981 Cardiology 06/24/20 Sena Seymour, RN Telegraph Editor 10/06/20 Friend, Bud HumbertoDO [address] [facility] [address] [place], [place] 841871 Gastroenterology 01/15/24 Helen Gibson 01/29/24 Helen Blair MD [address] [phone] Pulmonary and Critical Care Medicine 05/08/24 Danielle Kelly, ADALGISA.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 [address] [place], [place] [id number] Audio Installer Family [facility] 09/08/24 Usha Mcgovern PA-C [address] [place], [place] [phone] Audio Installer [facility] 09/08/24 Team Status: Inactive Member Role/Relationship Status [...] December 03, 2024 End: December 03, 2024 Skip Pitman Relationship Specialty Start Date End Date Yaw Singh MD [address] [place], [place] [phone] PCP - General Family Medicine 08/27/20 Madan Roy MD [address] [place], [place] [phone] Physician Radiation Oncology 04/28/20 Luly Gaffney RN Specialty Business Communications Instructor Oncology 05/18/20 Richard Jenkins DO [address] [place], [place] [phone] Referring Hematology/Oncology 05/25/20 Haroldo Noland MD [address] [facility] [address] [address] Cardiology 06/24/20 Sena Seymour, MICHELE Telegraph Editor 10/06/20 Bud Beck DO [address] [id number] Gastroenterology 01/15/24 Helen Gibson 01/29/24 Helen Blair MD [address] [address] Pulmonary and Critical Care Medicine 05/08/24 Danielle Kelly APRN.[facility] [address] [place], [place] [phone] Audio Installer Family Medicine 09/08/24 Usha Mcgovern PA-C [address] [place], [place] 329441 Audio Installer Family Medicine 09/08/24 Skip Pitman Relationship Specialty Start Date End Date Yaw Singh MD [address] [place], [place] [phone] PCP - General Family Medicine 08/27/20 Madan Roy MD [address] [facility] [place] [address] Physician Radiation Oncology 04/28/20 Luly Gaffney, MICHELE Specialty Business Communications Instructor Oncology 05/18/20 Richard Jenkins DO [address] [facility] [place] [phone] Referring Hematology/Oncology 05/25/20 Haroldo Noland MD [address] [facility] [address] [place] [address] Cardiology 06/24/20 Sena Seymour, RN Telegraph Editor 10/06/20 Bud Beck DO [address] [facility] [address] [place], [place] 907031 Gastroenterology 01/15/24 Helen Gibson 01/29/24 Helen Blair MD [address] [address] Pulmonary and Critical Care Medicine 05/08/24 Danielle Kelly APRN.[facility] [address] [place], [place] 518831 Audio Installer Family Medicine 09/08/24 Usha Mcgovern PA-C [address] [place], [place] 030311 Audio Installer Family Medicine 09/08/24 Skip Pitman Relationship Specialty Start Date End Date Yaw Singh MD [address] [place], [place] 986731 PCP - General Family Medicine 08/27/20 Madna Roy MD [address] [place] [address] Physician Radiation Oncology 04/28/20 Luly Gaffney RN Specialty Business Communications Instructor Oncology 05/18/20 Richard Jenkins DO [address] [place] [address] Referring Hematology/Oncology 05/25/20 Haroldo Noland MD [address] [facility] [address] [place], [place] 763521 Cardiology 06/24/20 Sena Seymour, MICHELE Telegraph Editor 10/06/20 Friend, Bud Paul DO [address] [facility] [address] [place], [place] 507721 Gastroenterology 01/15/24 Helen Gibson 01/29/24 Helen Blair MD [address] [place] [id number] Pulmonary and Critical Care Medicine 05/08/24 Danielle Kelly APRN.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 [address] [place], [place] [phone] Formerly [facility] 09/08/24 Usha Mcgovern PA-C [address] [place], [place] [phone] Formerly [facility] 09/08/24 Goals (unrecognized section and content) Goals [...] BE BASED ON THE PRIMARY CLINICAL RECORDS. [employer] [facility]. provides no warranty or guarantee of the accuracy or completeness of information in this document.
--- OUTSIDE RECORDS SUMMARY | 2025-03-06 02:00 | XMS RPT_ITS | CCD ---
Author Organization [facility] Care Team Providers Care Metal Dealer Name Role Phone KATHI BEASLEY Unavailable Unavailable CEBUL III, DANE A Unavailable Unavailable Pawa, Pratheep Unavailable Unavailable Cebul, Dane A Primary Care Provider Gilberto Ramos Primary Care Provider Gilberto Ramos DO Primary Care Provider Kirill MANNING MD, Daesung Unavailable Yeimy BAUTISTA, Luly Unavailable Unavailable Masci DO, Richard A Unavailable Lud[place], [place] S Unavailable Yaw Singh MD Primary Care Provider Sena Martinez Unavailable Unavailable Masci DO, Richard A Unavailable Sena Seymour RN Unavailable Unavailable Kirill MANNING MD, Daesung Unavailable Yeimy BAUTISTA, Luly Unavailable Unavailable Masci DO, Richard A Unavailable Ludin, Haroldo S Unavailable Yaw Singh MD Primary Care Provider [place], [place] S Unavailable Yaw Singh MD Primary Care Provider Kirill MANNING MD, Daesung Unavailable Yeimy BAUTISTA, Luly Unavailable Unavailable Masci DO, Richard A Unavailable Ludin, Haroldo S Unavailable Yaw Singh MD Primary Care Provider Sena Seymour RN Unavailable Unavailable Dr. Yaw Singh Primary Care Provider Dr. Yaw Singh Referring Provider [facility] TECHNICAL SALES SUPPORT SPECIALIST, TECHNICAL SALES SUPPORT SPECIALIST-C Angel Donis Attending Provider Yeimy BAUTISTA, Luly Unavailable Unavailable Ludin, Haroldo S Unavailable Ludin MANNING [place] S Unavailable RICHARD JENKINS Referring Unavailable YAW [...] Unavailable Anisa RN, Maegan Phyllis Unavailable Robin GLEZN.WILDLIFE CONSERVATION OFFICER, Unavailable Usha Mcgovern PA-C Unavailable Rossy MANNING, [...] Azra BAUTISTA, Josue B Unavailable Unavailable Robin COMPUTER CONSOLE OPERATOR.WILDLIFE CONSERVATION OFFICER, Unavailable Samantha MANNING, Dr. Tidwell Primary Care Provider Manuel MANNING, Dr. Shelton Attending Provider [phone] Samantha MANNING, Dr. Tidwell Referring Provider Maggie Potter Attending Provider [phone] Robin COMPUTER CONSOLE OPERATOR.WILDLIFE CONSERVATION OFFICER, Unavailable Mcgovern PA-C, Usha Unavailable Mcgovern PA-C, [...] Referring Unavailable Samantha, Yaw Primary Care Unavailable Manule, Nikita Attending Unavailable Samantha, Yaw Primary Care Unavailable Samantha, Yaw Referring Unavailable Vern Fung Attending Unavail able Fred, Connei Referring Unavailable Fred, Connie Attending Unavailable Samantha, Yaw Primary Care Unavailable Manuel, Nikita Referring Unavailable Samantha, Yaw Primary Care Unavailable [place], Nikita Attending Unavailable Manuel, Nikita Attending Unavailable [...] Yaw Referring Unavailable Mosquera, Maggie Attending Unavailable [place], Nikita Attending Unavailable Samantha, Yaw Primary Care Unavailable Mosquera, Maggie Referring Unavailable Manuel, Nikita Attending Unavailable Manuel, Nikita Consulting Unavailable Manuel, Nikita Referring Unavailable Samantha, Yaw Primary Care Unavailable [place], Nikita Consulting Unavailable [place], Nikita Referring Unavailable Samantha, Yaw Primary Care Unavailable Manuel, Nikita Attending Unavailable Haroldo Noland Attending Unavailable Samantha, Yaw Primary Care Unavailable Samantha, Yaw Referring Unavailable Samantha, Yaw Primary Care Unavailable [place]qu[place], Maggie Attending Unavailable River, Fidelina Attending Unavailable Samantha, Yaw Primary Care Unavailable Samantha, Yaw Primary Care Unavailable Sushant Tom Attending Unavailable Yari, Jayaprakas Referring Unavailable Samantha, Yaw Primary Care Unavailable [place], Nikita Attending Unavailable Samantha, Yaw Primary Care Unavailable Manuel, Nikita Attending Unavailable Trinh Briones Attending Unavailable Samantha, Yaw Primary Care Unavailable Yari, Jayaprakas Referring Unavailable Yari, Jayaprakas Attending Unavailable Samantha, Yaw Primary Care Unavailable [place], Nikita Referring Unavailable Samantha, Yaw Primary Care [...] SAMANTHA, YAW A Primary Care Unavailable GOI, IRCHARD A Referring Unavailable MARIA VICTORIA SCOTT Referring [...] reactions to drug 4 Shortness Of Breath [place] (7 sources) Seasonal allergy Propensity to adverse reactions to substance 4 Other (See Comments) [place] (20 sources) Environmental allergies [Other] Propensity to adverse reactions 6 Other: See Comments [facility] Work Phone: (2 sources) Environmental Allergies: Uncoded Allergy to substance 3 Itching [facility] (20 sources) Seasonal allergy; Translations: [SEASONAL ALLERGIES] Allergy to substance 4 Other: See Comments [facility] Medications Current Medications Medication Drug Class(es) Dates [...] on above: Take 1 capsule by mo [facility] twice daily for 7 days. [...] nasal spray Indications: Seasonal allergies Use 1 [place] in each nostril once daily. 1 Each [...] on above: Take 1 capsule by mo [facility] daily at bedtime. OLANZapine 2.5 [...] (DEFINITY) injection 1.65 mg polyethylene glycol 3350 75782 mg powder for oral solution (20 sources) [...] 2023 2:20pm End: 03-30-2023 polyethylene glycol 3350 ([place] RALAX, GLYCOLAX) 17 gram/dose powder Take by [...] hours as needed for pain. Given at [facility] 09/10/23 01/03/2024 Discontinued (Course of [...] Fri. Weekly bmp and cbc. Fax to [phone]. Start: 10-23-2023 End: 12-04-2023 Cefazolin 2 gram recon soln Discontinued 2 g IV .see below 33 October 23, 2023 12:00am December 04, 2023 2:22pm stop date 11/25/23. Dx: strep bacteremia. cefazolin iv with dialysis: 2gm on Mon, 2gm on Wed, 3gm on Fri. Weekly bmp and cbc. Fax to [phone]. clindamycin 10 mg/ml topical lotion (12 sources) [...] 4:55pm docusate sodium 50 mg / sennosides, prison 8.6 mg oral tablet (9 sources) Start: [...] (LASIX ORAL) Take by mouth. Given at [facility] 09/10/23 10/05/2023 Discontinued (Course of therapy completed) End: 10-05-2023 furosemide (LASIX ORAL) Take by mouth. Given at [facility] 09/10/23 0 10/05/2023 Discontinued (Course of therapy completed) furosemide (LASI X ORAL) Take by mouth. Given at [facility] 09/10/23 0 Active Comment on [...] on above: Take 2 tablets by mo [facility] twice daily. hydroCHLOROthiazide 25 mg [...] q 5min prn ches t pain nystatin 320323 unt/ml topical cream (20 sources) Polyene Antifungal [...] affected ar ea two times a day. Gcibg-8h-Ern-Epa-Fish Oil-D3 (3 sources) Start: 01-24-20 End: 12-31-19 Secnr-3n-Klx-Epa-Fis h Oil-D3 Discontinued 1 EACH PO DAILY January 23, 2014 12:00am December 30, 2020 8:31am Uaboj-2l-Wrl-Epa-Fish Oil-D3 1 EACH capsule (9 sources) Start: 01-24-20 End: 12-31-19 take 1 capsule by mouth once daily Vcmcj-9j-Ohn-Epa-Fis h Oil-D3 1 EACH capsule Discontinued 1 [...] ) 0.65 % nasal spray Use 1 [place] in the nose as needed for cold/allergy symptoms. 30 mL 1 03/17/2022 01/03/2024 Discontinued (Other) Start: 03-22-2021 End: 06-21-2022 sodium chloride 0.9 % (flush ) 10 mL (BD POSIFLUSH) Start: 03-03-2019 End: 03-07-2019 sodium chloride flush 0.9 % injection 10 mL Start: 03-03-2019 0.9 % sodium c hloride infusion Comment on above: Use 1 [place] in the n ose as needed for [...] sources) Coronary atherosclerosis; Translations: [Coronary arteriosclerosis in [place] artery] Onset: 9 03-12-2019 Chronic Comment on above: GLZ-ATM-Ymnsmb RPDA w/ 2.25 x 16 mm Promus Premier, APPLE-Distal RCA w/ 4.0 x 16 mm Promus Premier and APPLE-Mid RCA w/ 4.0 x 16 mm Promus Premier 07/23/2014; OPU-BTW-Mhgikw SVG-D1 w/ 3.5 x 18 mm Xience [...] sources) Long-term current use of anticoagulant; Translations: [assisted (current) use of anticoagulants] 11-14-2023 Episodic Other aftercare (9 sources) Long-term current use of drug therapy; Translations: [Other rat exterminator (current) drug therapy] 08-12-2018 Episodic Other aftercare [...] 08-05-2024 Episodic Other aftercare (1 source) Other rat exterminator (current) drug therapy; Translations: [Medication management] Onset: [...] [Compression fx, lumbar spine, closed, initial encounter ([facility])] Onset: 11-07-2024 Episodic Other fractures (1 [...] Summary (1)on 025 PT D/C Summary (1) [facility] Physical Therapy [facility] [address] [place] [address] / REHABILITATION SERVICES DISCHARGE SUMMARY MR#: [id number] Acct: [id number] Name: JACOB LANDA Rep #: [id number] : 1955 69 From: Derrick Neves PT, Cert. T, [facility] Referring Dr.: Dr. Kody Fragoso MD Status: REG RCR Insurance: MEDICARE PART A B [facility] Discharge Summary D/C summary: It has been [...] please feel free to call me at [phone]. Thank you for the referral of this patient. Sincerely, Derrick Neves, PT, Cert MDT, OCS Balance/Gait/Functional tests Balance/Special Test Scores Oswestry Low Back Score: 30 02/05/25 0952 CC: Dr. Yaw Singh MD; Dr. Kody Fragoso MD JLA Signed Normal [facility] MR/BMS.BVSon 02-04-2025 MR/BMS.BVS [facility] Vascular Surgery [address] [place] [address]. [address] [place] [address] OFFICE VISIT Date of Service: 02/04/25 MR#: [id number] Acct: [id number] Name: JACOB LANDA Rep #: [id number] : 1955 Provider: SHEILA Becker Age/Sex: 69/M Location: [facility] Status: Signed Intake Vital Signs 11/14/24 09:30 [...] air Intake Visit Reasons: swelling in arm Rn Clinical Review Required: No Accompanied by: Self Is patient [...] during dialysis. Denies pain, numbness or tingling. 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 Normal [facility] 12 Lead EKGon 01-30-2025 12 Lead E[address] [facility] Cardiovascular Services [address] [place] [address] 12 Lead EKG 01/30/25 1345 MR#: [id number] Acct: [id number] Name: JACOB LANDA Rep #: [id number] : 1955 69 From: Trinh Briones MD [...] undetermined Abnormal ECG Confirmed by TRINH BRIONES ([id number]), makeup editor CYNTHIA JOHN ([id number]) on 02/02/2025 6:40:55 AM Referred By: ER Confirmed By: TRINH BRIONES 02/02/25 0640 Date Trinh Briones MD CC: Dr. Fidelina Holman MD; Dr. Yaw Singh MD Signed Normal [facility] Basic Metabolic Profile (BMP )on 01-30-2025 BUN/CRE 8.5 RATIO Low 01-26 [facility] Comment on above: Performed By: #### L 100.0100, L500.2500 ####[facility] [address] [place], [address] Calcium [Mass/Vol] 7.9 mg/dL Normal 7.6-11.0 [facility] Comment on above: Performed By: #### L 100.0100, L500.2500 ####[facility] [address] [place], [address] Chloride [Moles/Vol] 98 mmol/L Normal 98-108 [facility] Comment on above: Performed By: #### L 100.0100, L500.2500 ####[facility] [address] [place], [address] CO2 [Moles/Vol] 32.7 mmol/L High 21.0-32.0 [facility] Comment on above: Performed By: #### L 100.0100, L500.2500 ####[facility] [address] [place], [address] Creatinine [Mass/Vol] 1.65 mg/dL High 0.70-1.20 [facility] Comment on above: Performed By: #### L 100.0100, L500.2500 ####[facility] [address] [place], [address] ECRCL 41.66 ml/min Low 50-250 [facility] Comment on above: Performed By: #### L 100.0100, L500.2500 ####[facility] [address] [place], [address] GAP 9 Normal 5-15 [facility] Comment on above: Performed By: #### L 100.0100, L500.2500 ####[facility] [address] [place], [address] GFR/1.73 sq M.predicted among non-blacks MDRD (S/P/Bld) [Vol rate/Area] 44 mL/min/{1.73_m2} Low >60 [facility] Comment on above: Result Comment: mL/m in/1.73m2 CKD-EPI Creatinine Equation (2020) Performed By: #### L 100.0100, L500.2500 ####[facility] [address] [place], [address] Glucose [Mass/Vol] 82 mg/dL Normal 70-99 [facility] Comment on above: Performed By: #### L 100.0100, L500.2500 ####[facility] [address] [place], [address] Potassium [Moles/Vol] 3.4 mmol/L Normal 3.3-5.1 [facility] Comment on above: Performed By: #### L 100.0100, L500.2500 ####[facility] [address] [place], [address] Sodium [Moles/Vol] 140 mmol/L Normal 133-145 [facility] Comment on above: Performed By: #### L 100.0100, L500.2500 ####[facility] [address] [place], [address] Urea nitrogen [Mass/Vol] 14 mg/dL Normal 4-19 [facility] Comment on above: Performed By: #### L 100.0100, L500.2500 ####[facility] [address] [place], [address] CBC W/Diff, Automatedon 10-2 Absolute Lymph 0.72 X10 3/uL Low 0.83-4.51 [facility] Comment on above: Performed By: #### L 100.0100, L500.2500 ####[facility] [address] [place], [address] Absolute Neut 2.3 X10 3/uL Normal 2.0-7.7 [facility] Comment on above: Performed By: #### L 100.0100, L500.2500 ####[facility] [address] [place], [address] Basophils/100 WBC (Bld) 1.1 % High 0-1 [facility] Comment on above: Performed By: #### L 100.0100, L500.2500 ####[facility] [address] [place], [address] Eosinophils/100 WBC (Bld) 3.2 % Normal 0-5 [facility] Comment on above: Performed By: #### L 100.0100, L500.2500 ####[facility] [address] [place], [address] Erythrocyte distribution width (RBC) [Ratio] 13.5 % Normal 11.6-14.6 [facility] Comment on above: Performed By: #### L 100.0100, L500.2500 ####[facility] [address] [place], [address] Hematocrit (Bld) [Volume fraction] 33.9 % Low 40-54 [facility] Comment on above: Performed By: #### L 100.0100, L500.2500 ####[facility] [address] [place], [address] Hemoglobin (Bld) [Mass/Vol] 11.0 g/dL Low 13.0-16.5 [facility] Comment on above: Performed By: #### L 100.0100, L500.2500 ####[facility] [address] [place], [address] IG% 0.500 Normal 0.0-0.9 [facility] Comment on above: Result Comment: IG% - Immature Granulocytes (promyelocytes, myelocytes and metamyelocytes) > 1% indicates that a LEFT SHIFT is Present. Performed By: #### L 100.0100, L500.2500 ####[facility] [address] [place], [address] Lymphocytes/100 WBC (Bld) 19.3 % Normal 19-41 [facility] Comment on above: Performed By: #### L 100.0100, L500.2500 ####[facility] [address] [place], [address] MCH (RBC) [Entitic mass] 31.0 pg Normal 27.0-32.0 [facility] Comment on above: Performed By: #### L 100.0100, L500.2500 ####[facility] [address] [place], [address] MCHC (RBC) [Mass/Vol] 32.4 g/dL Normal 32-36 [facility] Comment on above: Performed By: #### L 100.0100, L500.2500 ####[facility] [address] [place], [address] MCV (RBC) [Entitic vol] 95.5 fL High 80-94 [facility] Comment on above: Performed By: #### L 100.0100, L500.2500 ####[facility] [address] [place], [address] Monocytes/100 WBC (Bld) 13.1 % High 0-10 [facility] Comment on above: Performed By: #### L 100.0100, L500.2500 ####[facility] [address] [place], [address] Neutrophils/100 WBC (Bld) 62.8 % Normal 47-70 [facility] Comment on above: Performed By: #### L 100.0100, L500.2500 ####[facility] [address] [place], [address] Nucleated RBC (Bld) [#/Vol] 0 10*3/uL Normal 0-5 [facility] Comment on above: Performed By: #### L 100.0100, L500.2500 ####[facility] [address] [place], [address] Platelet mean volume (Bld) [Entitic vol] 9.1 fL Normal 6.2-12.0 [facility] Comment on above: Performed By: #### L 100.0100, L500.2500 ####[facility] [address] [place], [address] Platelets (Bld) [#/Vol] 156 10*3/uL Normal 150-450 [facility] Comment on above: Performed By: #### L 100.0100, L500.2500 ####[facility] [address] [place], [address] RBC (Bld) [#/Vol] 3.55 10*6/uL Low 4.6-6.2 [facility] Comment on above: Performed By: #### L 100.0100, L500.2500 ####[facility] [address] [place], [address] RDW SD 47.9 fl High 35.1-43.9 [facility] Comment on above: Performed By: #### L 100.0100, L500.2500 ####[facility] [address] [place], [address] WBC (Bld) [#/Vol] 3.7 10*3/uL Low 4.4-11.0 [facility] Comment on above: Performed By: #### L 100.0100, L500.2500 ####[facility] [address] [place], [address] Emergency Department Summary on 01-30-2025 Emergency Department Summary [facility] Medical Records Department [address] [facility] [place] [address] Emergency Department Summary 01/30/25 MR#: [id number] Acct: [id number] Name: JACOB LANDA Rep #: [id number] : 1955 69 From: Fidelina Holman MD [...] diarrhea today. Denies any dysuria or hematuria. 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 Normal [facility] AV Fistula/Dialysis Graft Sc anon 01-22-2025 AV Fistula/Dialysis Graft Scan [facility] Cardiovascular Services [address] [place] [address] AV Fistula/Dialysis Graft Scan 01/22/25 1309 MR#: [id number] Acct: [id number] Name: JACOB LANDA Rep #: [id number] : 1955 69 From: Nikita Jackson MD [...] Dictated: 01/22/25 1309 Date Transcribed: 01/22/25 155 Log Chain Worker: Signed Normal [facility] Inital Evaluation (1) - PTon 12-24-2024 Inital Evaluation (1) - PT [facility] Physical Therapy [address] [place] [address] / REHABILITATION SERVICES INITIAL EVALUATION MR#: [id number] Acct: [id number] Name: JACOB LANDA Rep #: [id number] : 1955 69 From: Derrick Neves PT, Cert. T, OCS Referring Dr.: Dr. Kody Fragoso MD Status: REG RCR Insurance: MEDICARE PART A B [facility] Patient's Visit Information Visit Information Visit Information: [...] Patient states that he went to the [place] [facility] the same day. Patient had MRI Multiple chronic appearing compression deformities are present such as at L5, L3, L2 and L1. However, there is a more recent compression deformity of T12 with concavity of the superior endplate and edema on inversion recovery images. Seen Dennis Ibarar recommended pain management ,seen Fouzia recommended PT [...] and motor (more content not included)... Normal [facility] Magnetic resonance imaging r eportOrdered By: Odilon Maldonado on 12-05-2024 Study report [facility] Imaging Services [address] [place], [place] [id number] Spine Lumbar (Routine) MR#: [id number] Acct: [id number] Name: JACOB LANDA Rep #: [id number] : 1955 M 69 From: Magalys Maldonado MD PCP: Dr. Yaw Singh MD Status: REG CLI Study:Spine Lumbar (Routine) Date of Exam: 12/03/24 Exam# [id number] Ordering Dr: Quang Ibarra PROCEDURE: SPINE LUMBAR [...] at T12 appears more recent. Reading Location: [facility] CC: SHEILA Coreas; Dr. Yaw Singh MD ~ Log Chain Worker: Signed [facility] Spine Lumbar (Routine)on Spine Lumbar (Routine) [facility] Imaging Services [address] [place] [address] [id number] Spine Lumbar (Routine) MR#: [id number] Acct: [id number] Name: JACOB LANDA Rep #: [id number] : 1955 M 69 From: Odilon Maldonado MD PCP: Dr. Yaw Singh MD Status: REG CLI Study: Spine Lumbar (Routine) Date of Exam: 12/03/24 Exam# [id number] Ordering Dr: Connie Ibarra PROCEDURE: SPINE LUMBAR [...] at T12 appears more recent. Reading Location: [facility] CC: SHELIA Coreas; Dr. Yaw Singh MD Log Chain Worker: Signed Normal [facility] Bone density reportOrdered B y: Nino Wood on 11-26-2024 Study report Skeletal system DXA [facility] Imaging Services [address] [place] [address] [id number] Dexa Bone Density Study MR#: [id number] Acct: [id number] Name: JACOB LANDA Rep #: [id number] : 1955 M 69 From: Rik Wood MD PCP: Dr. Yaw Singh MD Status: REG CLI Study:Dexa Bone Density Study Date of Exam: 11/26/24 Exam# [id number] Ordering Dr: Quang Ibarra PROCEDURE: DEXA BONE [...] Recommend follow-up as clinically warranted. Reading Location: [id number] CC: SHEILA Coreas; Dr. Yaw Singh MD ~ Log Chain Worker: Signed [facility] Dexa Bone Density Studyon Dexa Bone Density Study [facility] Imaging Services [address] [place] [address] [id number] Dexa Bone Density Study MR#: [id number] Acct: [id number] Name: JACOB LANDA Rep #: [id number] : 1955 M 69 From: Nino porter MD PCP: Dr. Yaw Singh MD Status: REG CLI Study: Dexa Bone Density Study Date of Exam: 11/26/24 Exam# [id number] Ordering Dr: Connie Ibarra PROCEDURE: DEXA BONE [...] CC: SHEILA Coreas; Dr. Yaw Singh MD Log Chain Worker: Signed Normal [facility] Lumbar Spine 2 or 3 Viewson 11-14-2024 Lumbar Spine 2 or 3 Views [facility] Imaging Services [address] [place] [address] [id number] Lumbar Spine 2 or 3 Views MR#: [id number] Acct: [id number] Name: JACOB LANDA Rep #: [id number] : 1955 M 69 From: Nino porter MD PCP: Dr. Yaw Singh MD Status: DEP AMB Study: Lumbar Spine 2 or 3 Views Date of Exam: Exam# [id number] Ordering Dr: Connie Ibarra PROCEDURE: LUMBAR SPINE [...] L1, L2 and L3 vertebrae. Reading Location: [id number] CC: SHEILA Coreas; Dr. 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 Part of today???s visit was documented by [...] of shamp (more content not included)... Normal [facility] Operative Reporton 5 Operative Report [facility] Medical Records Department [address] [place] [address] Operative Report 10/15/24 1434 MR#: [id number] Acct: [id number] Name: JACOB LANDA Rep #: [id number] : 1955 69 From: Nikita Jackson MD PCP: Dr. Yaw Singh MD Status:[facility] Location: [facility] Operative Report (Standard) Operative Information Date of Procedure: 10/15/24 Pre-Operative Diagnosis: End-stage renal disease currently on dialysis via left upper arm fistula Left IJ tunneled catheter no longer in use Post-Operative Diagnosis: Same Surgery/Procedure Performed: Removal left IJ tunneled catheter conveyor attendant: No Type of Anesthesia: Local and Sedation,Conscious [...] site the patient was taken to the Racing Secretary And Handicapper he was positioned prepped and draped in [...] Jackson MD; Dr. 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 Normal [facility] MR Brain WO contraston 09-08 IMPRESSION: [...] can be seen in setting of SIADH. Log Chain Worker: MORGAN Transcribe Date/Time: Sep 08 2024 3:29P Dictated by : RICHARD DEAL MD This examination was interpreted and the report reviewed and electronically signed by: RICHARD DEAL MD on Sep 08 2024 3:43PM [facility] DIVISION OF RADIOLOGY * * *Final Report* * * DATE OF EXAM: Sep 08 2024 3:22PM [facility] 0294 - MRI BRAIN WO IVCON / [...] right maxillary antrum. DIVISION OF RADIOLOGY Provider, [facility] - 09/08/2024 * * *Final Report* * * DATE OF EXAM: Sep 08 2024 3:22PM [facility] 0294 - MRI BRAIN WO IVCON / [...] can be seen in setting of SIADH. Log Chain Worker: MORGAN Transcribe Date/Time: Sep 08 2024 3:29P Dictated by : RICHARD DEAL MD This examination was interpreted and the report reviewed and electronically signed by: RICHARD DEAL MD on Sep 08 2024 3:43PM EST [facility] Radiology Study observation (narrative) [facility] MR Brain WO contrastOrdered By: Ccf Provider on 09-08-2024 [facility] Surgery Visit Reporton 09-02 Surgery Visit Report [facility] 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 [facility] EMEKA Pineda 2024 [facility] Nabil PADILLA * * *Final Report* * * DATE OF EXAM: Aug 27 2024 10:32AM WRW 1543 - [facility] DIAG Nabil [place]IE / PROCEDURE REASON: multiple diagnoses * * * * Physician Interpretation * * * * RESULT: [place] [address] #[id number] - [facility] EMEKA PADILLA #[id number] - [facility] [employer] S[employer]. BREAST LTD RT HISTORY: 69 year-old patient [...] Renetta Vazquez M.D. Electronically signed on: 08/27/2024 Log Chain Worker: PEDRO Transcribe Date/Time: Aug 27 2024 10:05A Dictated by: RENETTA VAZQUEZ MD This examination was interpreted and the report reviewed and electronically signed by: RENETTA VAZQUEZ MD on Aug 27 2024 11:15AM EST [id number] Normal [facility] US BREAST LTD RTon 08-27 [facility] US BREAST LTD RT * * *Final Report* * * DATE OF EXAM: Aug 27 2024 10:49AM WRU 0594 - [facility] US BREAST LTD RT / PROCEDURE REASON: multiple diagnoses * * * * Physician Interpretation * * * * [place] [address] #[id number] - [facility] EMEKA PADILLA #[id number] - [facility] US BREAST LTD RT HISTORY: 69 [...] Renetta Vazquez M.D. Electronically signed on: 08/27/2024 Log Chain Worker: PEDRO Transcribe Date/Time: Aug 27 2024 10:41A Dictated by : RENETTA VAZQUEZ MD This examination was interpreted and the report reviewed and electronically signed by: RENETTA VAZQUEZ MD on Aug 27 2024 11:15AM EST [id number] Normal [facility] CNOVon 08-20-2024 CNOV Office Visit (UCWSTR ) -- JACOB LANDA ([id number]) 1955 M Date Time Provider Department 08/20/24 8:15 AM STEVE YOUSSEF [facility] During your visit today, we recorded the following information about you: Temperature Pulse Respiration Blood pressure 97.2 degrees 84/minute 16/minute 118/74 Weight 74.3 kg Steve Youssef PA-C 08/20/2024 6:42 PM Signed This note was created using [employer]lic[employer]. Subjective Jacob Landa is a 69 year [...] Primary Visi (more content not included)... Normal [facility] XR LUMBAR 3V AP/LAT/L5-S1on 08-20-2024 XR [...] deformity. Recommend further evaluation with cross-sectional imaging. Log Chain Worker: MORGAN Transcribe Date/Time: Aug 20 2024 9:13A Dictated by : GLENNY ASHTON DO This examination was interpreted and the report reviewed and electronically signed by: GLENNY ASHTON DO on Aug 20 2024 9:21AM EST [id number] Normal [facility] XR Lumbar spine 3 Viewson IMPRESSION: Possible new mild L5 superior endplate compression deformity. Recommend further evaluation with cross-sectional imaging. Log Chain Worker: MORGAN Transcribe Date/Time: Aug 20 2024 9:13A [...] deformity. Recommend further evaluation with cross-sectional imaging. Log Chain Worker: PSCB Transcribe Date/Time: Aug 20 2024 9:13A Dictated by : GLENNY ASHTON DO This examination was interpreted and the report reviewed and electronically signed by: GLENNY ASHTON DO on Aug 20 2024 9:21AM EST [facility] Radiology Study observation (narrative) [facility] XR Lumbar spine 3 ViewsOrder ed By: Ccf Provider on 08-20-2024 [facility] CNOVon 08-05-2024 CNOV Office Visit (UCWSTR ) -- JACOB LANDA ([id number]) 1955 M Date Time Provider Department 08/05/24 [...] kidney disease) stage 4, GFR 15-29 ml/min ([facility]) 01/03/2024 On dialysis and seeing Dr. Greenbreg. 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 Normal [facility] Surgery Visit Reporton 07-22 Surgery Visit Report [facility] [address] [place] [address]. [address] [place] [address] OFFICE VISIT Date of Service: 07/22/24 MR#: [id number] Acct: [id number] Name: JACOB LANDA Rep #: [id number] : 1955 Provider: SHEILA Becker Age/Sex: 69/M Location: [facility] Status: Signed Intake Vital Signs 06/30/24 07:02 [...] Global Post Op Diagnoses AV fistula I77.0 REPLACED BY [facility] Medical History Wears glasses Cancer Cancer Pressure [...] Esophageal carcinoma Atherosclerosis of coronary artery of 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 Essential (primary) hypertension Non-rheumatic aortic stenosis Syncope and collapse Hyperlipidemia Atherosclerotic heart disease of [place] coronary artery with other forms of angina [...] never sub (more content not included)... Normal [facility] B-HCG SerPl-aCncon 5 HCG.beta subunit Qn m[IU]/mL Normal <5.0 [facility] Comment on above: Order Comment: Speci men Type: BLOOD SPECIMENOrdering Facility: [facility] Address: [address] [place] [address] Performed By: #### 2 1198-7 ####[facility] LABCLIA [id number] KYLE GUTIERREZ [id number] [place] [address] OF [facility] CNOVon 06-30-2024 CNOV Office Visit (FAMPWS ) -- JACOB LANDA ([id number]) 1955 M Date Time Provider Department 06/30/24 2:00 PM [facility] visit today, we recorded [...] Aortic valve stenosis 07/26/2015 Ascending aorta dilation ([facility]) 09/21/2023 09/21/2023: 4.1cm Asthma BPH (benign prostatic hyperplasia) 07/20/2014 Carpal tunnel syndrome of right wrist CKD (chronic kidney disease) stage 4, GFR 15-29 ml/min ([facility]) 01/03/2024 On dialysis and seeing Dr. Greenberg. Closed wedge compression fracture of T10 vertebra ([facility]) 07/12/2023 Coronary artery disease involving paskenta coronary artery without angina pectoris Seeing Dr. Noland DDD (degenerative disc disease), lumbar 11/04/2019 Elevated blood sugar 03/11/2024 Esophageal adenocarcinoma ([facility]) 08/09/2020 Essential hypertension, benign GERD (gastroesophageal reflux disease) 07/12/2009 History of kidney stones 07/20/2014 Iron deficiency anemia due to chronic blood loss 05/25/2020 Iron malabsorption 05/25/2020 Kidney stone Kyphosis (acquired) (postural) 07/30/[address] 03/11/2024 DPA: Lacho (step daughter) Malignant neoplasm of lower third of esophagus ([facility]) 04/15/2020 Medicare annual wellness visit, subsequent 01/13/2021 Medical B eligibilty date 03/09/19 Date of last exam 01/13/2021 Mixed hyperlipidemia MRSA (methicillin resistant Staphylococcus aureus) 12/01/2016 treated with course of Linezolid beginning 10/29/16 Nonrheumatic aortic valve disorder On tube feeding diet 08/14/2020 History: 65 year old male s/p [place] esophagectomy, Pyloromyotomy, Jejunostomy tube placement for esophageal adenocarcinoma -Diet: Isosource 1.5 to 50 cc hour with 100 cc water flushes 8 times per day and Bene protein 3 times per day Removed 11/17/2020 Personal history of colonic polyps 12/27/2009 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 Pressure ulcer of unspecified buttock, stage 2 ([facility]) 01/03/2024 Bilaterally. Primary insomnia 03/30/2023 S/P [...] COLONOSCOPY W/BIOPSY SINGLE/MULTIPLE 02/22/2007 Diminutive polyp distal dcyrnsm-46-3047 ECHO 01/08/2021 EGD 04/15/2020 HEART CATHETERIZATION 12/2018 [...] TONSILLECTOMY PRIMARY/SECONDARY Tonsillectomy TOT/SUB ESOPHAGECTOMY W/THORACOT 08/09/2020 [place] esophagectomy, jejunostomy tube plac (more content not included)... Normal [facility] Discharge Instructionon 06-08 Discharge Instruction [facility] Medical Records Department [address] [place] [address] Instructions for Home/Discharge Instructions 06/30/24912 MR#: [id number] Acct: [id number] Name: JACOB LANDA Rep #: [id number] : 1955 69 From: Nikita Jackson MD PCP: Dr. Yaw Singh MD Status:REG [facility] Discharge Instructions Diet Discharge Diet: No restrictions [...] Care Provider: Yaw Singh Instructions Print Language: Jordanian Discharge Orders/Prescriptions Prescriptions: New oxycodone 5 mg [...] CC: Dr. Yaw Singh MD Signed Normal [facility] Estradiol SerPl-mCncon 06-30 E2 [Mass/Vol] 25 pg/mL Normal <38 [facility] Comment on above: Order Comment: Speci men Type: BLOOD SPECIMENOrdering Facility: [facility] Address: [address] [place] [address] Result Comment: This test is not suitable for patients receiving treatment with the drug Fulvestrant (Faslodex). The drug causes an interference leading to falsely elevated estradiol results. Performed By: #### 2 243-4, 02313-7, 14694-9, 2842-3 ####[facility] LABCLIA [id number] [address] [place] FSH SerPl-aCncon 06-30-2024 Follitropin Qn 21.7 m[IU]/mL High 1.5-12.4 [facility] Comment on above: Order Comment: Speci men Type: BLOOD SPECIMENOrdering Facility: [facility] Address: [address] [place] [address] Performed By: #### 2 243-4, 91698-2, 19622-1, 2842-3 ####[facility] LABCLIA [id number] [address] [place] LH SerPl-aCncon 06-30-2024 Lutropin Qn 13.4 m[IU]/mL High 1.8-10.8 [facility] Comment on above: Order Comment: Speci men Type: BLOOD SPECIMENOrdering Facility: [facility] Address: [address] [place] [address] Performed By: #### 2 243-4, 27948-8, 47078-3, 2842-3 ####[facility] LABCLIA [id number] [address] [place] MR/POSTOP.ANEon 06-30-2024 MR/POSTOP.ANE [facility] Medical Records Department [address] [place] [address] Anesthesia Postop Eval I 06/30/24 0933 MR#: [id number] Acct: [id number] Name: JACOB LANDA Rep #: [id number] : 1955 69 From: Antwan Pettit CRNA PCP: Dr. Yaw Singh MD Status:REG SD Y Race: C Location: [place] [address] Anesthesia: Postop Eval I Current Vital Signs [...] completed: Yes 06/30/24934 Date [facility]an Pettit [facility] Signature: Date CC: Signed Normal [facility] MR/[id number] 06-30-2024 MR/POSTOPAN2 [facility] Medical Records Department [address] [address] Anesthesia Postop Eval II 06/30/24 1015 MR#: [id number] Acct: [id number] Name: JACOB LANDA Rep #: [id number] : 1955 69 From: Tawny Covington PCP: Dr. Yaw Singh MD Status:REG SDC Y Race: C Location: [place] [address] Anesthesia Postop Eval I Sum Postop Eval Completion status Anesthesia document: Postop Eval 1 completed: Yes Anesthesia Postop Eval I Summary Anesthesia Postop Eval I Summary: Anesthesia Postop Eval I: Assessment Summary Airway patent Yes 06/30/24 09:34 STAKING ENGINEER.PKEL Spontaneous unlabored Yes 06/30/24 09:34 STAKING ENGINEER.PKEL respirations Mental status Awake,Calm 06/30/24 09:34 STAKING ENGINEER.PKEL nausea No 06/30/24 09:34 STAKING ENGINEER.PKEL Vomiting No 06/30/24 09:34 STAKING ENGINEER.PKEL Anesthesia Postop Eval I: Fluid Summary Crystalloid volume administer 250 06/30/24 09:34 STAKING ENGINEER.PKEL (ml) Colloids volume administered ( ml) Blood Product volume administered (ml) Total IV fluid infused 250 06/30/24 09:34 STAKING ENGINEER.PKEL Anesthesia Postop Eval I: Summary Notes Anesthesia Complication Yes 06/30/24 09:34 STAKING ENGINEER.PKEL Anesthesia Complication right nares with 06/30/24 09:34 STAKING ENGINEER.PKEL Comment: epistaxis from npa Post-operative progress note Anesthesia: Postop Eval II Evaluation Mental status: Awake Pain Level: 2 nausea: No Vomiting: No 06/30/24 1016 Date Tawny Santos Signature: Date CC: Signed Normal [facility] Operative Reporton Operative Report [facility] Medical Records Department [address] [place] [address] Operative Report 06/30/24917 MR#: [id number] Acct: [id number] Name: JACBO LANDA Rep #: [id number] : 1955 69 From: Nikita Jackson MD PCP: Dr. Yaw Singh MD Status:[facility] Location: [facility] Operative Report (Standard) Operative Information Date of Procedure: 06/30/24 Pre-Operative Diagnosis: ESRD Post-Operative Diagnosis: same Surgery/Procedure Performed: left brach-ceph fistula creation conveyor attendant: Yes Brass Roller: Kristi Vázquez Tasks completed by environmental services assistant: Opening, Closing, Opening closing, Hemostasis: Tie [...] cephalic vein so he presents now for paskenta fistula creation. Description of procedure: Upon obtaining [...] MD; Dr. Yaw Singh MD Signed Normal [facility] Prolactin SerPl-mCncon 06-30 Prolactin [Mass/Vol] 72.8 ng/mL High 4.1-25.1 [facility] Comment on above: Order Comment: Speci men Type: BLOOD SPECIMENOrdering Facility: [facility] Address: [address] [place] [address] Result Comment: Prol actin test is performed using the [employer] Electrochemiluminescence Immunoassay method. Results obtained with different methods or kits cannot be used interchangeably. Performed By: #### 2 243-4, 86366-1, 56088-9, 2842-3 ####[facility] LABCLIA [id number] [place] [address] [place] TSH SerPl-aCncon 06-30-2024 TSH Qn 3.100 m[IU]/L Normal 0.270-4.200 [facility] Comment on above: Order Comment: Speci men Type: BLOOD SPECIMENOrdering Facility: [facility] Address: [address] [place] [address] Performed By: #### 2 986-8, 3016-3 ####[facility] LABCLIA [id number] [place] [id number] [place] Testost SerPl-mCncon 06-30- 025 Testosterone [Mass/Vol] 436 ng/dL Normal 193-824 [facility] Comment on above: Order Comment: Speci men Type: BLOOD SPECIMENOrdering Facility: [facility] Address: [facility] [place] [address] Result Comment: A te stosterone level in the 193-320 ng/dL range with associated clinical symptoms is considered low and may indicate hypogonadism (from [facility] 2010 363:123-135). Results >320 ng/dL are considered normal. Performed By: #### 2 986-8, 3016-3 ####[facility] LABCLIA [id number] [place] [id number] [facility] John 06-20-2024 [facility] Telephone (TXCTGL) -- JACOB LANDA ([id number]) 1955 M Date Time Provider Department 06/20/24 [place] TXCTGL During your visit today, we recorded the following information about you: Hill Obrien LISW 06/20/2024 10:45 AM Signed Call placed to pt to complete the scheduled kidney transplant psychosocial evaluation. No answer. Left message requesting pt return my call. KATHERYN Dye LISW-S, [facility] Transplant Push Button Switch Assembler Allergies As of Date: 06/20/2024 Noted Allergy Reaction SEASONAL ALLERGIES 07/12/2023 14 - Other: See Comments Comments: Sneezing, watery eyes, runny nose. Date Reviewed: 06/11/2024 Reviewed by: Vicetne Addison RD - Fully Assessed Reason for [...] (FLONASE) 50 mcg/actuation nasal spray Use 1 [place] in each nostril once daily. - ferrous [...] (HCC) [C15.9] 08/09/2020 Coronary artery disease involving paskenta crisostomo* On tube feeding diet [Z78.9] 08/14/2020 01/13/2021 AK (actinic keratosis) [L57.0] 09/07/2020 Medicare annual wellness visit, subsequent [Z00*01/13/2021 Pleural effusion [J90] 03/11/2021 Advance directive discussed with patient [Z71.8*02/09/2022 Medication management [Z79.899] 02/09/2022 Prostate disorder [N42.9] 02/09/2022 Decreased sexual desire [F52.0] 02/09/2022 Human Resources Trainer's nodules [L28.1] 03/30/2023 Primary insomnia [F51.01] 03/30/2023 Closed wedge compression fracture of T10 verteb*07/12/2023 Strain of thoracic paraspinal muscles excluding*07/30/2023 03/11/2024 Kyphosis (acquired) (postural) [M40.00] 07/30/2023 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 Normal [facility] CNCOon 06-13-2024 CNCO Letter Text Normal [facility] ACTIVATED PARTIAL THROMBOPLA STIN TIMEon 06-11-2024 aPTT Coag (PPP) [Time] 31.9 s [facility] ALGN RABBIT EPITHELIUM IGEon 06-11-2024 RABBIT EPITHELIUM CLASS Class 0 Normal Class 0 [facility] Comment on above: Order Comment: Speci men Type: BLOOD SPECIMENOrdering Facility: [facility] Address: [address] [place] [address] Performed By: #### R ABEPI ####[facility] LABCLIA [id number] [place] [address] [place] RABBIT EPITHELIUM IGE <0.35 Normal <0.35 [facility] Comment on above: Order Comment: Speci men Type: BLOOD SPECIMENOrdering Facility: [facility] Address: [address] [place] [address] Performed By: #### R ABEPI ####[facility] LABCLIA [id number] [address] BLOOD TB SCREENon 06-11-2024 M. tuberculosis tuberculin stim IFN-g Ql (Bld) Negative Normal [facility] Comment on above: Order Comment: Speci men Type: BLOOD SPECIMENOrdering Facility: [facility] Address: [address] [place] [address] Performed By: #### I NFTBP ####[facility] LABIA [id number] [place] [address] [place] MITOGEN MINUS NIL >9.98 Normal >=0.50 [facility] Comment on above: Order Comment: Speci men Type: BLOOD SPECIMENOrdering Facility: [facility] Address: [address] [place] [address] Performed By: #### I NFTBP ####[facility] [id number] [address] TB GAMMA INTERPRETATION Infection with M. tuberculosis complex is unlikely. If latent tuberculosis infection is highly suspected, a negative result does not rule out the infection. Specimens from immunocompromised patients and those <5 years of age may show false negative results. In case of a contact investigation, please repeat 8-12 weeks after a known exposure. Normal [facility] Comment on above: Order Comment: Speci men Type: BLOOD SPECIMENOrdering Facility: [facility] Address: [address] [place] [address] Performed By: #### I NFTBP ####[facility] LABIA [id number] [address] TB NIL 0.02 IU/mL Normal <=8.00 [facility] Comment on above: Order Comment: Speci men Type: BLOOD SPECIMENOrdering Facility: [facility] Address: [address] [place] [address] Performed By: #### I NFTBP ####[facility] LABIA [id number] [address] TB1 AG MINUS NIL 0.00 IU/mL Normal <0.[address] [facility] Comment on above: Order Comment: Speci men Type: BLOOD SPECIMENOrdering Facility: [facility] Address: [address] [place] [address] Performed By: #### I NFTBP ####[facility] LABCLIA [id number] [address] TB2 AG MINUS NIL 0.00 IU/mL Normal <0.[address] [facility] Comment on above: Order Comment: Speci men Type: BLOOD SPECIMENOrdering Facility: [facility] Address: [address] [place] [address] Performed By: #### I NFTBP ####[facility] LABIA [id number] [address] CBC panel Auto (Bld)on 06-11 Erythrocyte distribution width (RBC) [Ratio] 15.6 % High 11.5 - 15.0 % [facility] Hematocrit (Bld) [Volume fraction] 35.7 % Low 39.0 - 51.0 % [facility] Hemoglobin (Bld) [Mass/Vol] 11.3 g/dL Low 13.0 - 17.0 g/dL [facility] Interpretation and review of laboratory results Abnormal [facility] MCH (RBC) [Entitic mass] 29.9 pg 26.0 - 34.0 pg [facility] MCHC (RBC) [Mass/Vol] 31.7 g/dL 30.5 - 36.0 g/dL [facility] MCV (RBC) [Entitic vol] 94.4 fL 80.0 - 100.0 fL [facility] Nucleated RBC (Bld) [#/Vol] NINF [facility] Platelet mean volume (Bld) [Entitic vol] 10 fL 9.0 - 12.7 fL [facility] Platelets (Bld) [#/Vol] 228 10*3/uL [facility] RBC (Bld) [#/Vol] 3.78 10*6/uL Low 4.20 - 6.0 0 m/uL [facility] WBC (Bld) [#/Vol] 9.67 10*3/uL [facility] Erythrocyte distribution width (RBC) [Ratio] 15.6 % High 11.5-15.0 [facility] Comment on above: Order Comment: Speci men Type: BLOOD SPECIMENOrdering Facility: [facility] Address: [address] [place] [address] Performed By: #### 5 8410-2 ####[facility] LABIA [id number] [place] [address] [place] Hematocrit (Bld) [Volume fraction] 35.7 % Low 39.0-51.0 [facility] Comment on above: Order Comment: Speci men Type: BLOOD SPECIMENOrdering Facility: [facility] Address: [address] [place] [address] Performed By: #### 5 8410-2 ####[facility] LABIA [id number] [place] [address] [place] Hemoglobin (Bld) [Mass/Vol] 11.3 g/dL Low 13.0-17.0 [facility] Comment on above: Order Comment: Speci men Type: BLOOD SPECIMENOrdering Facility: [facility] Address: [address] [place] [address] Performed By: #### 5 8410-2 ####[facility] LABIA [id number] [place] [address] [place] MCH (RBC) [Entitic mass] 29.9 pg Normal 26.0-34.0 [facility] Comment on above: Order Comment: Speci men Type: BLOOD SPECIMENOrdering Facility: [facility] Address: [address] [place] [address] Performed By: #### 5 8410-2 ####[facility] LABIA [id number] [place] [address] [place] MCHC (RBC) [Mass/Vol] 31.7 g/dL Normal 30.5-36.0 [facility] Comment on above: Order Comment: Speci men Type: BLOOD SPECIMENOrdering Facility: [facility] Address: [address] [place] [address] Performed By: #### 5 8410-2 ####[facility] LABCLIA [id number] [facility] [address] [place] MCV (RBC) [Entitic vol] 94.4 fL Normal 80.0-100.0 [facility] Comment on above: Order Comment: Speci men Type: BLOOD SPECIMENOrdering Facility: [facility] Address: [address] [place] [address] Performed By: #### 5 8410-2 ####[facility] LABIA [id number] [place] [address] [place] Nucleated RBC (Bld) [#/Vol] 10*3/uL Normal <0.01 [facility] Comment on above: Order Comment: Speci men Type: BLOOD SPECIMENOrdering Facility: [facility] Address: [address] [place] [address] Performed By: #### 5 8410-2 ####[facility] LABIA [id number] [place] [address] [place] Platelet mean volume (Bld) [Entitic vol] 10.0 fL Normal 9.0-12.7 [facility] Comment on above: Order Comment: Speci men Type: BLOOD SPECIMENOrdering Facility: [facility] Address: [address] [place] [address] Performed By: #### 5 8410-2 ####[facility] LABCLIA [id number] [place] [address] [place] Platelets (Bld) [#/Vol] 228 10*3/uL Normal 150-400 [facility] Comment on above: Order Comment: Speci men Type: BLOOD SPECIMENOrdering Facility: [facility] Address: [address] [place] [address] Performed By: #### 5 8410-2 ####[facility] LABCLIA [id number] [place] [address] [place] RBC (Bld) [#/Vol] 3.78 10*6/uL Low 4.20-6.00 [facility] Comment on above: Order Comment: Speci men Type: BLOOD SPECIMENOrdering Facility: [facility] Address: [address] [place] [address] Performed By: #### 5 8410-2 ####[facility] LABIA [id number] [place] [address] [place] WBC (Bld) [#/Vol] 9.67 10*3/uL Normal 3.70-11.00 [facility] Comment on above: Order Comment: Speci men Type: BLOOD SPECIMENOrdering Facility: [facility] Address: [address] [place] [address] Performed By: #### 5 8410-2 ####[facility] LABIA [id number] [place] [address] [place] CMV IgG Qnon 06-11-2024 CMV IGG QUAL Positive Abnormal Negative [facility] Comment on above: Order Comment: Speci men Type: BLOOD SPECIMENOrdering Facility: [facility] Address: [address] [place] [address] Result Comment: The result suggests recent or past infection with Cytomegalovirus (CMV). Positive result may also be seen due to presence of passively-transferred antibodies. Please correlate with patient's history. Performed By: #### M EASLG, 7852-7, VZVG2, 7885-7 ####[facility] LABCLIA [id number] [place] [address] [place] CMV IgG SerPl-aCncon 025 CMV IgG Qn >10.00 Normal [facility] Comment on above: Order Comment: Speci men Type: BLOOD SPECIMENOrdering Facility: [facility] Address: [address] [place] [address] Result Comment: The magnitude of the measured result is not indicative of the amount of antibody present. U/mL values are interpreted as follows: Negative <0.6 Equivocal 0.6 to <0.70 Positive >=0.70 Performed By: #### M EASLG, 7852-7, VZV, 7885-7 ####[facility] LABCLIA [id number] CLEMENTBeba GUTIERREZ [address] CNOVon 06-11-2024 CNOV Office Visit (TXCTGL ) -- JACOB LANDA ([id number]) 1955 M Date Time Provider Department 06/11/24 [...] will be scheduled for you at a [facility] facility: CARDIAC: EKG-Today Cardiac Stress Test-Will schedule after discussion with your utilization specialist CANCER SCREENING: PSA with Evaluation-with labs today ADDITIONAL CONSULTS Cardiology-Will need clearance from your utilization specialist Oncology-Will need clearance from your oncologist Imaging Studies: Nothing further Miscellaneous Items: Labs-Today Outside test results should be faxed to [phone]. Please review the kidney transplant educational materials on line at [email or web address] Sign-in: Kidney To check on your status of your evaluation, please contact your coordinator, Wendy Christian RN [phone]. Ezekiel Shah RN Kidney/Pancreas Pre-Supervisor [place] [facility] Referring Provider: MARIA VICTORIA SCOTT [[id number]] Allergies As of Date: 06/11/2024 Noted Allergy [...] (FLONASE) 50 mcg/actuation nasal spray Use 1 [place] in each nostril once daily. - ferrous [...] Malignant neopla (more content not included)... Normal [facility] CNOV Office Visit (TXCTGL ) -- JACOB LANDA ([id number]) 1955 M Date Time Provider Department 06/11/24 3:00 PM NEPHROLOGY [facility] TXCTGL During your visit today, we recorded the following information about you: Temperature Pulse Blood pressure Weight 98.5 degrees 93/minute 128/76 73.9 kg Height 1.778 m Grabiel Ruff MD 06/13/2024 11:56 AM Signed [facility] Transplant Evaluation CC: Consultation for Kidney transplant evaluation. Referred by: Maria Victoria Scott [address] [place], [place] [address] [address] [address] I will communicate with the referring provider [...] 03/28/2024 through a TDC-plan for aVF on Sunday06/16/2024-[place] Patient presents ambulatory with cane. 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 [...] old m (more content not included)... Normal [facility] CNOV Office Visit (TXCTGL ) -- JACOB LANDA ([id number]) 1955 M Date Time Provider Department 06/11/24 2:30 PM UROLOGY [place] [facility] TXCTGL During your visit today, we recorded the following information about you: Temperature Pulse Blood pressure Weight 98.5 degrees 93/minute 128/76 73.9 kg Height 1.778 m Lacho Pa PA-C 06/13/2024 4:50 PM Signed [facility] Transplant Evaluation CC: Consultation for Kidney transplant evaluation. Referred by: Maria Victoria Scott [id number] [address] I will communicate with the referring provider [...] and radiation with carboplatin and paclitaxel 05/2020-06/2020 [place] Roger esophagectomy 08/09/2020 Adjuvant nivolumab DDD BPH kidney stones left hip replacement 02/15/2024. Hematology note mentions kidney biopsy in October of 2023 with acute tubular necrosis and acute tubulointerstitial nephritis-results not in CE. Pt initiated on hemodialysis 03/28/2024 through a TDC-plan for aVF on Sunday06/16/2024-[place] Patient presents ambulatory with cane. Does patient [...] Aortic valve stenosis 07/26/2015 Ascending aorta dilation ([facility]) 09/21/2023 09/21/2023: 4.1cm Asthma BPH (benign prostatic hyperplasia) 07/20/2014 Carpal tunnel syndrome of right wrist CKD (chronic kidney disease) stage 4, GFR 15-29 ml/min ([facility]) 01/03/2024 On dialysis and seeing Dr. Greenberg. Closed wedge compression fracture of T10 vertebra ([facility]) 07/12/2023 Coronary artery disease involving p[place] coronary artery without angina pectoris Seeing Dr. Noland DDD (degenerative disc disease), lumbar 11/04/2019 Elevated blood sugar 03/11/2024 Esophageal adenocarcinoma ([facility]) 08/09/2020 Essential hypertension, benign GERD (gastroesophageal reflux disease) 07/12/2009 History of kidney stones 07/20/2014 Iron deficiency anemia due to chronic blood loss 05/25/2020 Iron malabsorption 05/25/2020 Kidney stone Kyphosis (acquired) (postural) 07/30/[address] 03/11/2024 DPA: Lacho (step daughter) Malignant neoplasm of lower third of esophagus ([facility]) 04/15/2020 Medicare annual wellness visit, subsequent 01/13/2021 Medical B eligibilty date 03/09/19 Date of last exam 01/13/2021 Mixed hyperlipidemia MRSA (methicillin resistant Staphylococcus aureus) 12/01/2016 treated with course of Linezolid beginning 10/29/16 Nonrheumatic aortic valve disorder On tube feeding diet 08/14/2020 History: 65 year old male s/p [place] Roger esophagectomy, Pyloromyotomy, Jejunostomy tube placement for esophageal adenocarcinoma -Diet: Isosource 1.5 to 50 cc hour with 100 cc water flushes 8 times per day and Bene protein 3 times per day Removed 11/17/2020 Personal history of colonic polyps 12/27/2009 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 Pressure ulcer of unspecified buttock, stage 2 (HCC) 01/03/2024 Bilaterally. 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 4 07/23/2017 S/P TAVR (transc (more content not included)... Normal [facility] CNOV Office Visit (TXCTGL ) -- JACOB LANDA ([id number]) 1955 M Date Time Provider Department 06/11/24 2:00 PM KIDNEY TXP COORDINATORS TXCTGL During your visit today, we recorded the following information about you: Referring Provider: MARIA VICTORIA SCOTT [[id number]] Allergies As of Date: 06/11/2024 Noted Allergy [...] (FLONASE) 50 mcg/actuation nasal spray Use 1 [place] in each nostril once daily. 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 Normal [facility] CNOV Office Visit (TXCTGL ) -- JACOB LANDA ([id number]) 1955 M Date Time Provider Department 06/11/24 [...] and [facility]; a copy of the program [...] about Kidney Allocation Policy -Directions to access [facility]'s data through the [facility] website. -Informed Consent for Transplant Program Participation patient education packet -National Kidney Registry pamphlet -Covid-19 Vaccination for Transplant Candidates Method of Instruction: Group class instruction Written instruction/Handouts Verbal instruction Patient/Family Response: Patient asked appropriate questions, which were answered satisfactorily. Follow-Up Plan: Complete - No need for follow-up Referral/Recommendation: None Rober Iglesias RN Pre-Supervisor [place] Referring Provider: MAULIK ARANDA [[id number]] Allergies As of Date: 06/11/2024 Noted Allergy [...] (FLONASE) 50 mcg/actuation nasal spray Use 1 [place] in each nostril once daily. - ferrous [...] of b (more content not included)... Normal [facility] Comprehensive metabolic 2000 panelon 06-11-2024 Albumin [Mass/Vol] 4.0 g/dL Normal 3.9-4.9 [facility] Comment on above: Order Comment: Speci men Type: BLOOD SPECIMENOrdering Facility: [facility] Address: [address] [place] [address] Performed By: #### 2 4323-8, 2777-1, 97309-3 ####[facility] LABCLIA [id number] [place] [address] [place] ALP [Catalytic activity/Vol] 119 U/L High 38-113 [facility] Comment on above: Order Comment: Speci men Type: BLOOD SPECIMENOrdering Facility: [facility] Address: [address] [place] [address] Performed By: #### 2 4323-8, 2777-1, 77980-0 ####[facility] LABCLIA [id number] [address] [address] [place] ALT [Catalytic activity/Vol] 17 U/L Normal 10-54 [facility] Comment on above: Order Comment: Speci men Type: BLOOD SPECIMENOrdering Facility: [facility] Address: [address] [place] [address] Performed By: #### 2 4323-8, 2777-1, 46966-6 ####[facility] LABCLIA [id number] [place] [address] [place] Anion gap [Moles/Vol] 14 mmol/L Normal 8-15 [facility] Comment on above: Order Comment: Speci men Type: BLOOD SPECIMENOrdering Facility: [facility] Address: [address] [place] [address] Performed By: #### 2 4323-8, 277-, 53695-5 ####[facility] LABCLIA [id number] [place] [address] [place] AST [Catalytic activity/Vol] 18 U/L Normal 14-40 [facility] Comment on above: Order Comment: Speci men Type: BLOOD SPECIMENOrdering Facility: [facility] Address: [address] [place] [address] Performed By: #### 2 4323-8, 277-1, 40859-0 ####[facility] LABCLIA [id number] [address] [address] [place] Bilirubin [Mass/Vol] 0.6 mg/dL Normal 0.2-1.3 [facility] Comment on above: Order Comment: Speci men Type: BLOOD SPECIMENOrdering Facility: [facility] Address: [address] [place] [address] Performed By: #### 2 4323-8, 2777-1, 11953-8 ####[facility] LABCLIA [id number] [address] [address] [place] Calcium [Mass/Vol] 9.5 mg/dL Normal 8.5-10.2 [facility] Comment on above: Order Comment: Speci men Type: BLOOD SPECIMENOrdering Facility: [facility] Address: [address] [place] [address] Performed By: #### 2 4323-8, 2777-1, 93946-3 ####[facility] LABCLIA [id number] [address] [address] [place] Chloride [Moles/Vol] 97 mmol/L Low 98-107 [facility] Comment on above: Order Comment: Speci men Type: BLOOD SPECIMENOrdering Facility: [facility] Address: [address] [place] [address] Performed By: #### 2 4323-8, 2777-1, 02358-8 ####[facility] LABCLIA [id number] [place] [address] [place] CO2 [Moles/Vol] 28 mmol/L Normal 22-30 [facility] Comment on above: Order Comment: Speci men Type: BLOOD SPECIMENOrdering Facility: [facility] Address: [address] [place] [address] Performed By: #### 2 4323-8, 2777-1, 48136-9 ####[facility] LABCLIA [id number] [address] [address] [place] Creatinine [Mass/Vol] 3.22 mg/dL High 0.73-1.22 [facility] Comment on above: Order Comment: Speci men Type: BLOOD SPECIMENOrdering Facility: [facility] Address: [address] [place] [address] Performed By: #### 2 4323-8, 2777-1, 22373-6 ####[facility] LABCLIA [id number] [address] [address] [place] Creatinine and Glomerular filtration rate.predicted panel (S/P/Bld) 20 mL/min/1.73m??? Low >=60 [facility] Comment on above: Order Comment: Ehsan nunes Type: BLOOD SPECIMENOrdering Facility: [facility] Address: [address] [place] [address] Result Comment: Aurora mated Glomerular Filtration Rate [...] GFR. Performed By: #### 2 4323-8, 2777-1, 64602-6 ####[facility] LABCLIA [id number] [place] [address] [place] Glucose [Mass/Vol] 84 mg/dL Normal 74-99 [facility] Comment on above: Order Comment: Ehsan nunes Type: BLOOD SPECIMENOrdering Facility: [facility] Address: [address] [place] [address] Result Comment: The [place] Diabetes Association (ADA) provides guidance for cutoff [...] Standards of Medical Care in Diabetes 2016, [place] [employer] Association. Diabetes Care. 2016.39(Suppl 1). Performed By: #### 2 4323-8, 2777-1, 22525-3 ####[facility] LABCLIA [id number] [place] [address] [place] Potassium [Moles/Vol] 3.9 mmol/L Normal 3.7-5.1 [facility] Comment on above: Order Comment: Speci men Type: BLOOD SPECIMENOrdering Facility: [facility] Address: [address] [place] [address] Performed By: #### 2 4323-8, 2777-1, 25198-1 ####[facility] LABCLIA [id number] [address] [address] [place] Protein [Mass/Vol] 8.1 g/dL High 6.3-8.0 [facility] Comment on above: Order Comment: Speci men Type: BLOOD SPECIMENOrdering Facility: [facility] Address: [address] [place] [address] Performed By: #### 2 4323-8, 7-1, 57105-2 ####[facility] LABCLIA [id number] [address] [address] [place] Sodium [Moles/Vol] 139 mmol/L Normal 136-144 [facility] Comment on above: Order Comment: Speci men Type: BLOOD SPECIMENOrdering Facility: [facility] Address: [address] [place] [address] Performed By: #### 2 4323-8, 7-1, 64227-1 ####[facility] LABCLIA [id number] [address] [address] [place] Urea nitrogen [Mass/Vol] 32 mg/dL High 9-24 [facility] Comment on above: Order Comment: Speci men Type: BLOOD SPECIMENOrdering Facility: [facility] Address: [address] [place] [address] Performed By: #### 2 4323-8, 7-1, 11730-7 ####[facility] LABCLIA [id number] [address] [place] [address] [place] EBV capsid IgG Qn (S)on EBV VCA IGG, QUAL Positive Abnormal Negative [facility] Comment on above: Order Comment: Speci men Type: BLOOD SPECIMENOrdering Facility: [facility] Address: [address] [place] [address] Result Comment: The result suggests recent or past EBV infection. The final interpretation should be done in the context of other EBV serology panel results. Performed By: #### M EASLG, 7852-7, VZVG2, 7885-7 ####[facility] LABCLIA [id number] [address] [place] ECG COMPLETEon 06-11-2024 ECG COMPLETE Ventricular Rate : 8 2 BPM Atrial Rate : 82 BPM P-R Interval : 134 ms QRS Duration : 94 ms Q-T Interval : 386 ms QTC Calculation(Bazett) : 450 ms Calculated P [place] : 7 degrees Calculated R [place] : 22 degrees Calculated T [place] : 35 degrees SINUS RHYTHM WITH OCCASIONAL PREMATURE VENTRICULAR COMPLEXES NONSPECIFIC T WAVE ABNORMALITY ABNORMAL ECG Confirmed by DAYANA HANCOCK MD ([id number]) on 06/28/2024 6:10:15 PM NAME : JACOB LANDA PID : [id number] : 1955 Gender : Male Race : ORD : [id number] Procedure Date : Jun 11 2024 15:54:10 Edit Date : Jun 28 2024 18:10:19 Diagnosis: SINUS RHYTHM WITH OCCASIONAL PREMATURE VENTRICULAR COMPLEXES NONSPECIFIC T WAVE ABNORMALITY ABNORMAL ECG Confirmed by DAYANA HANCOCK MD ([id number]) on 06/28/2024 6:10:15 PM Test Reason : Location : 314 : [facility] Overread By : DAYNAA HANCOCK MD Edited By : DAYANA HANCOCK MD Referred By : GRABIEL RUFF Acquired by : FAIZAN BARROSO Normal [facility] Free PSA [Mass/Vol]on 2024 Free PSA/Total PSA [Mass fraction] 39 % Normal [facility] Comment on above: Order Comment: Speci men Type: BLOOD SPECIMENOrdering Facility: [facility] Address: [address] [place] [address] Result Comment: Tota l and free PSA test methodology used is the Electrochemiluminescence Immunoassay by [employer]. Total or free PSA values by differing [...] 15.8% Performed By: #### 2 4323-8, 2777-1, 56209-0 ####[facility] LABCLIA [id number] [address] [address] [place] Prostate specific Ag [Mass/Vol] 1.60 ng/mL Normal <2.60 [facility] Comment on above: Order Comment: Speci men Type: BLOOD SPECIMENOrdering Facility: [facility] Address: [address] [place] [address] Result Comment: Tota l PSA test methodology used is the Electrochemiluminescence Immunoassay by [employer]. Total PSA values by differing methodologies cannot be interchanged. Performed By: #### 2 4323-8, 2777-1, 77171-1 ####[facility] LABCLIA [id number] [address] [address] [place] HBV core Ab Ser Qlon 025 HBV core Ab Ql (S) Negative Normal Negative [facility] Comment on above: Order Comment: Speci men Type: BLOOD SPECIMENOrdering Facility: [facility] Address: [address] [place] [address] Result Comment: No e vidence of current or past infection with Hepatitis B virus. Should recent infection be suspected, repeat testing may be considered 3-4 weeks after this draw. Performed By: #### 5 195-3, 94944-6, 24523-2, 01552-4 ####[facility] LABCLIA [id number] [place] [id number] [place] HBV surface Ab Ql (S)on HBV surface Ab Qn (S) <8.00 Normal [facility] Comment on above: Order Comment: Speci men Type: BLOOD SPECIMENOrdering Facility: [facility] Address: [address] [place] [address] Result Comment: <8 m IU/mL: No serological evidence of immunity to Hepatitis B Virus. >/= 8 to <12 mIU/mL: No serological evidence of immunity to Hepatitis B Virus. >/= 12 mIU/mL: Consistent with serological evidence of immunity to Hepatitis B Virus. Performed By: #### 5 195-3, 82799-7, 39845-2, 65645-9 ####[facility] LABCLIA [id number] [address] [place] HBV surface Ab Ser Qlon HBV surface Ab Ql (S) Negative Normal [facility] Comment on above: Order Comment: Speci men Type: BLOOD SPECIMENOrdering Facility: [facility] Address: [address] [place] [address] Result Comment: No s erological evidence of immunity to Hepatitis B Virus. Performed By: #### 5 195-3, 63266-8, 66494-0, 05961-2 ####[facility] LABCLIA [id number] [place] [address] [place] HBV surface Ag Ser Qlon HBV surface Ag Ql (S) Negative Normal Negative [facility] Comment on above: Order Comment: Speci men Type: BLOOD SPECIMENOrdering Facility: [facility] Address: [address] [place] [address] Performed By: #### 5 195-3, 59426-2, 05278-5, 27980-1 ####[facility] LABCLIA [id number] [place] [address] [place] HCV Ab Ser Qlon 06-11-2024 HCV Ab Ql (S) Negative Normal Negative [facility] Comment on above: Order Comment: Speci men Type: BLOOD SPECIMENOrdering Facility: [facility] Address: [address] [place] [address] Result Comment: The result suggests no evidence of active infection with Hepatitis C virus. Should recent infection be suspected, repeat testing may be considered 4-6 weeks after this draw. Performed By: #### 1 6128-1 ####[facility] LABCLIA [id number] [place] [address] [place] HEPATITIS A ANTIBODY, IGGon 06-11-2024 HAV IgG Ql (S) Negative Normal [facility] Comment on above: Order Comment: Speci men Type: BLOOD SPECIMENOrdering Facility: [facility] Address: [address] [place] [address] Result Comment: No s erological evidence of immunity to Hepatitis A Virus. Performed By: #### A HAVG, 05458-6 ####[facility] LABCLIA [id number] [place] [address] [place] HIV 1+2 Ab IA Qlon HIV 1 and 2 Ab IA.rapid Nom (S/P/Bld) Normal [facility] Comment on above: Order Comment: Speci men Type: BLOOD SPECIMENOrdering Facility: [facility] Address: [address] [place] [address] Result Comment: Test not indicated. Performed By: #### 5 195-3, 29188-4, 19418-8, 80345-5 ####[facility] LABCLIA [id number] [place] [address] [place] HIV 1+2 Ab+HIV1 p24 Ag IA Ql Non-Reactive Normal Nonreactive [facility] Comment on above: Order Comment: Speci men Type: BLOOD SPECIMENOrdering Facility: [facility] Address: [address] [place] [address] Performed By: #### 5 195-3, 79247-7, 76380-3, 91102-1 ####[facility] LABCLIA [id number] [place] [facility] HIV immunoassay testing algorithm interpretation (S/P/Bld) [Interp] Normal [facility] Comment on above: Order Comment: Speci men Type: BLOOD SPECIMENOrdering Facility: [facility] Address: [address] [place] [address] Result Comment: No e vidence of HIV-1 or HIV-2 infection. Should recent infection be suspected, repeat testing may be considered 2-3 weeks after this draw. [place] Rev. Code 3701.243(E): This information has been [...] or diagnoses. Performed By: #### 5 195-3, 34785-6, 19247-1, 56025-5 ####[facility] LABCLIA [id number] [place] [address] [place] KID K/P PANC REC INIT W/Uon 06-11-2024 ALLOGEN RESULTS TO FOLLOW See Allogen report to follow Normal [facility] Comment on above: Order Comment: Speci men Type: BLOOD SPECIMENOrdering Facility: [facility] Address: [address] [place] [address] Performed By: #### K PRIPW ####[facility] LABORATORIESCLIA [id number] [address] [place] No Panel Informationon 06-11 Interpretation and review of laboratory results Normal [facility] PT panel Coag (PPP)on 2024 INR Coag (PPP) [Relative time] 1.2 {INR} 0.9 - 1.3 [facility] Comment on above: Vitamin K Antagonist (VKA) Therapeutic Range: INR 2 to 3 (Target INR of 2.5) Note: For patients treated with VKA drugs, such as warfarin, the [employer] 2012 Guideline recommends [...] Chest 2012, 141:7S-47S Rose SULLIVAN et mar. [facility] 2017, 70: 252-289 PT Coag (PPP) [Time] 12.6 s [facility] INR Coag (PPP) [Relative time] 1.2 {INR} Normal 0.9-1.3 [facility] Comment on above: Order Comment: Speci men Type: BLOOD SPECIMENOrdering Facility: [facility] Address: [address] [place] [address] Result Comment: Saadia min K Antagonist (VKA) Therapeutic Range: INR 2 to 3 (Target INR of 2.5) Note: For patients treated with VKA drugs, such as warfarin, the [employer] 2012 Guideline recommends [...] Chest 2012, 141:7S-47S Rose SULLIVAN et al. [facility] 2017, 70: 252-289 Performed By: #### 3 4528-0, 18628-1 ####[facility] LABCLIA [id number] [address] [place] PT Coag (PPP) [Time] 12.6 s Normal 9.7-13.0 [facility] Comment on above: Order Comment: Speci men Type: BLOOD SPECIMENOrdering Facility: [facility] Address: [address] [place] [address] Performed By: #### 3 4528-0, 11503-2 ####[facility] LABIA [id number] [address] [place] PTH-Intact SerPl-mCncon 03-0 Parathyrin.intact [Mass/Vol] 124 pg/mL High 15-65 [facility] Comment on above: Order Comment: Speci men Type: BLOOD SPECIMENOrdering Facility: [facility] Address: [address] [place] [address] Performed By: #### 2 731-8 ####[facility] LABIA [id number] [address] [place] Phosphate SerPl-mCncon 06-11 Phosphate [Mass/Vol] 3.9 mg/dL Normal 2.7-4.8 [facility] Comment on above: Order Comment: Speci men Type: BLOOD SPECIMENOrdering Facility: [facility] Address: [address] [place] [address] Performed By: #### 2 4323-8, 2777-1, 58727-2 ####[facility] [id number] [address] [place] RUBEOLA (MEASLES)IGGon 06-11 MEASLES IGG AB, QUAL Positive Normal Positive [facility] Comment on above: Order Comment: Speci men Type: BLOOD SPECIMENOrdering Facility: [facility] Address: [address] [place] [address] Result Comment: The result suggests recent or past exposure to Measles virus or Measles vaccination. The current test does not detect neutralizing antibodies. Positive result may also be seen due to presence of passively-transferred antibodies. Please correlate with patient's history. Performed By: #### M EASLG, 7852-7, VZVG2, 7885-7 ####[facility] LABCLIA [id number] [place] [address] [place] Reagin and Treponema pallidu m IgG and IgM [Interp]on 06-11-2024 T. pallidum IgG+IgM IA Ql (S) Non-Reactive Normal Nonreactive [facility] Comment on above: Order Comment: Speci men Type: BLOOD SPECIMENOrdering Facility: [facility] Address: [address] [place] [address] Performed By: #### A HARDYG, 21443-0 ####[facility] LABCLIA [id number] [place] [address] [place] Reagin+T pallidum IgG+IgM Se rPl-Impon 06-11-2024 Reagin and Treponema pallidum IgG and IgM [Interp] Cannot exclude recent Treponemal infection if specimen collected within 7-10 days after appearance of suspect lesions or 2-3 weeks after an exposure. Clinical correlation is required. Normal [facility] Comment on above: Order Comment: Ehsan nunes Type: BLOOD SPECIMENOrdering Facility: [facility] Address: [address] [place] [address] Performed By: #### A HARDYG, 35727-4 ####[facility] LABCLIA [id number] [place] [address] [place] STRONGYLOIDES IGG BLon 06-11 STRONGYLOIDES IGG QUALITATIVE Negative Normal Negative [facility] Comment on above: Order Comment: Meghani men Type: BLOOD SPECIMENOrdering Facility: [facility] Address: [address] [place] [address] Performed By: #### S TRSER ####[facility] LABCLIA [id number] [place] [id number] [place] TRANSPLANT CONFIRM ABO/RHon 06-11-2024 ABO A Normal [facility] Comment on above: Order Comment: Speci men Type: BLOOD SPECIMENOrdering Facility: [facility] Address: [address] [place] [address] Performed By: #### T RCABO ####CC MAIN BLOOD BANKCLIA [id number] [place] [id number] [place] Rh Nom (Bld) Positive Normal [facility] Comment on above: Order Comment: Speci men Type: BLOOD SPECIMENOrdering Facility: [facility] Address: [address] [place] [address] Performed By: #### T RCABO ####CC MAIN BLOOD BANKCLIA [id number] [place] [address] [place] TYPE + SCREENon 06-11-2024 ABO A Normal [facility] Comment on above: Order Comment: Speci men Type: BLOOD SPECIMENOrdering Facility: [facility] Address: [address] [place] [address] Performed By: #### T SCR ####CC MAIN BLOOD BANKCLIA [id number] [place] [address] [place] Rh Nom (Bld) Positive Normal [facility] Comment on above: Order Comment: Speci men Type: BLOOD SPECIMENOrdering Facility: [facility] Address: [address] [place] [address] Performed By: #### T SCR ####CC MAIN BLOOD BANKCLIA [id number] [place] [address] [place] TYPE AND SCREEN EXPIRATION 06/14/2024 23:59 Normal [facility] Comment on above: Order Comment: Speci men Type: BLOOD SPECIMENOrdering Facility: [facility] Address: [address] [place] [address] Performed By: #### T SCR ####CC MAIN BLOOD BANKCLIA [id number] [place] [id number] [place] VARICELLA ZOSTER IGGon 06-11 VARICELLA ZOSTER IGG, QUAL Positive Normal Positive [facility] Comment on above: Order Comment: Ehsan nunes Type: BLOOD SPECIMENOrdering Facility: [facility] Address: [address] [place] [address] Result Comment: The result suggests recent or past exposure to Varicella-Zoster virus or chickenpox vaccination or zoster vaccination. Positive result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 Lymphocytes/100 WBC (Bld) 11.4 % Normal [facility] Comment on above: Order Comment: Speci men Type: BLOOD SPECIMENOrdering Facility: [facility] Address: [address] [place] [address] Performed By: #### 5 7021-8, 85376-1 ####[facility]ALTHCAREAMANDAA [id number] [place] [address] [place] MCH (RBC) [Entitic mass] 28.7 pg Normal 26.0-34.0 [facility] Comment on above: Order Comment: Speci men Type: BLOOD SPECIMENOrdering Facility: [facility] Address: [address] [place] [address] Performed By: #### 5 7021-8, 85461-6 ####[facility]ALTHCAREGERSON [id number] [place] [address] [place] MCHC (RBC) [Mass/Vol] 31.5 g/dL Normal 30.5-36.0 [facility] Comment on above: Order Comment: Speci men Type: BLOOD SPECIMENOrdering Facility: [facility] Address: [address] [place] [address] Performed By: #### 5 7021-8, 53987-6 ####[facility]ALTHCAREGIANAGARFIELD [facility] [id number] [place] [address] [place] MCV (RBC) [Entitic vol] 91.2 fL Normal 80.0-100.0 [facility] Comment on above: Order Comment: Speci men Type: BLOOD SPECIMENOrdering Facility: [facility] Address: [address] [place] [address] Performed By: #### 5 7021-8, 55387-7 ####[facility] CENTERA [id number] [place] [address] [place] Monocytes (Bld) [#/Vol] 0.48 10*3/uL Normal <0.87 [facility] Comment on above: Order Comment: Speci men Type: BLOOD SPECIMENOrdering Facility: [facility] Address: [address] [place] [address] Performed By: #### 5 7021-8, 85009-7 ####[facility] HEALTHCARENCLIA [id number] [place] [address] [place] Monocytes/100 WBC (Bld) 7.8 % Normal [facility] Comment on above: Order Comment: Speci men Type: BLOOD SPECIMENOrdering Facility: [facility] Address: [address] [place] [address] Performed By: #### 5 7021-8, 25224-6 ####[facility] MILLTOWNCLIA [id number] [place] [address] [place] Neutrophils (Bld) [#/Vol] 4.70 10*3/uL Normal 1.45-7.50 [facility] Comment on above: Order Comment: Speci men Type: BLOOD SPECIMENOrdering Facility: [facility] Address: [address] [place] [address] Performed By: #### 5 7021-8, 74161-0 ####[facility] HOSPITALWNCLIA [id number] [place] [address] [place] Neutrophils/100 WBC (Bld) 76.4 % Normal [facility] Comment on above: Order Comment: Speci men Type: BLOOD SPECIMENOrdering Facility: [facility] Address: [address] [place] [address] Performed By: #### 5 7021-8, 21288-9 ####[facility] HOSPITALLIA [id number] [place] [address] [place] Nucleated RBC (Bld) [#/Vol] 10*3/uL Normal <0.01 [facility] Comment on above: Order Comment: Speci men Type: BLOOD SPECIMENOrdering Facility: [facility] Address: [address] [place] [address] Performed By: #### 5 7021-8, 80956-7 ####[facility] MILLTOWNCLIA [id number] [place] [address] [place] Nucleated RBC/100 WBC (Bld) [Ratio] 0.0 /100 WBC Normal [facility] Comment on above: Order Comment: Speci men Type: BLOOD SPECIMENOrdering Facility: [facility] Address: [address] [place] [address] Performed By: #### 5 7021-8, 96320-3 ####[facility] MILLWNCLIA [id number] [place] [address] [place] Platelet mean volume (Bld) [Entitic vol] 9.6 fL Normal 9.0-12.7 [facility] Comment on above: Order Comment: Speci men Type: BLOOD SPECIMENOrdering Facility: [facility] Address: [address] [place] [address] Performed By: #### 5 7021-8, 33923-5 ####[facility] BLANCALAS MARIASAMANDAA [id number] [place] [address] [place] Platelets (Bld) [#/Vol] 185 10*3/uL Normal 150-400 [facility] Comment on above: Order Comment: Speci men Type: BLOOD SPECIMENOrdering Facility: [facility] Address: [address] [place] [address] Performed By: #### 5 7021-8, 30449-2 ####[facility]ALTHCAREAMANDAA [id number] [place] [address] [place] RBC (Bld) [#/Vol] 4.98 10*6/uL Normal 4.20-6.00 [facility] Comment on above: Order Comment: Speci men Type: BLOOD SPECIMENOrdering Facility: [facility] Address: [address] [place] [address] Performed By: #### 5 7021-8, 57366-6 ####[facility] BLANCALAS MARIASGIANALIA [id number] [place] [address] [place] WBC (Bld) [#/Vol] 6.16 10*3/uL Normal 3.70-11.00 [facility] Comment on above: Order Comment: Speci men Type: BLOOD SPECIMENOrdering Facility: [facility] Address: [address] [place] [address] Performed By: #### 5 7021-8, 23359-8 ####[facility] BLANCALAS MARIASNCLIA [id number] [place] [address] [place] COPPER BLOODon 04-17-2024 Copper [Mass/Vol] 124 ug/dL Normal 70-140 [facility] Comment on above: Order Comment: Speci men Type: BLOOD SPECIMENOrdering Facility: [facility] Address: [address] [place] [address] Result Comment: This test was developed, and its performance characteristics determined by the [facility] Department of Pathology and Laboratory Medicine. It has not been cleared or approved by the FDA. The [facility] Department of Pathology and Laboratory Medicine is regulated under CLIA as qualified to perform high-complexity testing. This test is used for clinical purposes. It should not be regarded as investigational or for research. Performed By: #### C OPPER ####[facility] LABCLIA [id number] [place] [address] [place] [address] ABD/PEL WO IVCONon 2024 CT ABD/PEL WO IVCON * * *Final Report* * * DATE OF EXAM: Apr 17 2024 2:21PM [facility] 0531 - CT ABD/PEL WO [...] or metastasis in the abdomen and pelvis. Log Chain Worker: MORGAN Transcribe Date/Time: Apr 19 2024 7:52P Dictated by : TONNY SAINI MD This examination was interpreted and the report reviewed and electronically signed by: TONNY SAINI MD on Apr 19 2024 7:58PM EST [id number] Normal [facility] CT CHEST WO IVCONon 04-17-19 CT CHEST WO IVCON * * *Final Report* * * DATE OF EXAM: Apr 17 2024 2:21PM [facility] 0541 - CT CHEST WO [...] pathological compression fracture with superior endplate defects. Log Chain Worker: PSCB Transcribe Date/Time: Apr 19 2024 7:33P Dictated by : TONNY SAINI MD This examination was interpreted and the report reviewed and electronically signed by: TONNY SAINI MD on Apr 19 2024 7:52PM EST [id number] Normal [facility] Comprehensive metabolic 2000 panelon 04-17-2024 Albumin [Mass/Vol] 3.9 g/dL Normal 3.9-4.9 [facility] Comment on above: Order Comment: Ehsan nunes Type: BLOOD SPECIMENOrdering Facility: [facility] Address: [address] [place] [address] Performed By: #### 1 9123-9, 66112-9 ####[facility] [id number] [place] [id number] [place] ALP [Catalytic activity/Vol] 116 U/L High 38-113 [facility] Comment on above: Order Comment: Ehsan nunes Type: BLOOD SPECIMENOrdering Facility: [facility] Address: [address] [place] [address] Performed By: #### 1 9123-9, 18740-1 ####[facility] ANETTE CARILIA [id number] [place] [address] [place] ALT [Catalytic activity/Vol] 35 U/L Normal 10-54 [facility] Comment on above: Order Comment: Speci men Type: BLOOD SPECIMENOrdering Facility: [facility] Address: [address] [place] [address] Performed By: #### 1 9123-9, 56129-9 ####[facility] DAMIONA [id number] [place] [address] [place] Anion gap [Moles/Vol] 11 mmol/L Normal 8-15 [facility] Comment on above: Order Comment: Speci men Type: BLOOD SPECIMENOrdering Facility: [facility] Address: [address] [place] [address] Performed By: #### 1 9123-9, 17793-9 ####[facility] BLANCALAS MARIASGIANALIA [id number] [place] [address] [place] AST [Catalytic activity/Vol] 27 U/L Normal 14-40 [facility] Comment on above: Order Comment: Speci men Type: BLOOD SPECIMENOrdering Facility: [facility] Address: [address] [place] [address] Performed By: #### 1 9123-9, 48984-9 ####[facility] BLANCANabilNCLIA [id number] [place] [address] [place] Bilirubin [Mass/Vol] 0.5 mg/dL Normal 0.2-1.3 [facility] Comment on above: Order Comment: Speci men Type: BLOOD SPECIMENOrdering Facility: [facility] [facility] Address: [address] [place] [address] Performed By: #### 1 9123-9, 11225-5 ####[facility] ANETTE MILLTOWNCLIA [id number] [place] [address] [place] Calcium [Mass/Vol] 8.4 mg/dL Low 8.5-10.2 [facility] Comment on above: Order Comment: Speci men Type: BLOOD SPECIMENOrdering Facility: [facility] Address: [address] [place] [address] Performed By: #### 1 9123-9, ####[facility] MILLTOWNCLIA [id number] [place] [address] [place] Chloride [Moles/Vol] 93 mmol/L Low 98-107 [facility] Comment on above: Order Comment: Speci men Type: BLOOD SPECIMENOrdering Facility: [facility] Address: [address] [place] [address] Performed By: #### 1 9123-9, ####[facility] HOSPITALLIA [id number] [place] [address] [place] CO2 [Moles/Vol] 30 mmol/L Normal 22-30 [facility] Comment on above: Order Comment: Speci men Type: BLOOD SPECIMENOrdering Facility: [facility] Address: [address] [place] [address] Performed By: #### 1 9123-9, ####[facility] MILLTOWNCLIA [id number] [place] [address] [place] Creatinine [Mass/Vol] 2.25 mg/dL High 0.73-1.22 [facility] Comment on above: Order Comment: Speci men Type: BLOOD SPECIMENOrdering Facility: [facility] Address: [address] [place] [address] Performed By: #### 1 9123-9, 27725-0 ####[facility] MILLLAS MARIASGIANALIA [id number] [place] [address] [place] Creatinine and Glomerular filtration rate.predicted panel (S/P/Bld) 31 mL/min/1.73m??? Low >=60 [facility] Comment on above: Order Comment: Ehsan nunes Type: BLOOD SPECIMENOrdering Facility: [facility] Address: [address] [place] [address] Result Comment: Aurora mated Glomerular Filtration Rate [...] actual GFR. Performed By: #### 1 9123-9, 50286-3 ####[facility] [id number] [place] [address] [place] Glucose [Mass/Vol] 104 mg/dL High 74-99 [facility] Comment on above: Order Comment: Ehsan nunes Type: BLOOD SPECIMENOrdering Facility: [facility] Address: [address] [place] [address] Result Comment: The [place] Diabetes Association (ADA) provides guidance for cutoff [...] Standards of Medical Care in Diabetes 2016, [place] Diabetes Association. Diabetes Care. 2016.39(Suppl 1). Performed By: #### 1 9123-9, 42715-0 ####[facility] [id number] [place] [address] [place] Potassium [Moles/Vol] 3.5 mmol/L Low 3.7-5.1 [facility] Comment on above: Order Comment: Speci men Type: BLOOD SPECIMENOrdering Facility: [facility] Address: [address] [place] [address] Performed By: #### 1 9123-9, 19204-3 ####[facility] H[facility]ITALMEENU [id number] [place] [address] [place] Protein [Mass/Vol] 7.8 g/dL Normal 6.3-8.0 [facility] Comment on above: Order Comment: Speci men Type: BLOOD SPECIMENOrdering Facility: [facility] Address: [address] [place] [address] Performed By: #### 1 9123-9, 04038-0 ####[facility]ARE[facility]ERSON [id number] [place] [address] [place] Sodium [Moles/Vol] 134 mmol/L Low 136-144 [facility] Comment on above: Order Comment: Speci men Type: BLOOD SPECIMENOrdering Facility: [facility] Address: [address] [place] [address] Performed By: #### 1 9123-9, 15776-8 ####[facility]CAREAMANDAA [id number] [place] [address] [place] Urea nitrogen [Mass/Vol] 24 mg/dL Normal 9-24 [facility] Comment on above: Order Comment: Speci men Type: BLOOD SPECIMENOrdering Facility: [facility] Address: [address] [place] [address] Performed By: #### 1 9123-9, 05085-5 ####[facility] HEALTHCARENCLIA [id number] [place] [address] [place] HbA1c (Bld)on 04-17-2024 Average glucose Estimated from glycated hemoglobin (Bld) [Mass/Vol] 85 mg/dL Normal [facility] Comment on above: Order Comment: Ehsan nunes Type: BLOOD SPECIMENOrdering Facility: [facility] Address: [address] [place] [address] Result Comment: eAG: (Estimated average glucose) is a calculated value from HgbA1c and is compliance representative dealer of the average blood glucose level in the last 2-3 month period. Performed By: #### 5 5454-3 ####[facility] LABCLIA [id number] [place] [address] [place] HbA1c (Bld) [Mass fraction] 4.6 % Normal 4.3-5.6 [facility] Comment on above: Order Comment: Ehsan nunes Type: BLOOD SPECIMENOrdering Facility: [facility] Address: [address] [place] [address] Result Comment: Amer ican Diabetes Association guidelines indicate that patients with HgbA1c in the range 5.7-6.4% are at increased risk for development of diabetes, and intervention by lifestyle modification may be beneficial. HgbA1c greater or equal to 6.5% is considered diagnostic of diabetes. Performed By: #### 5 5454-3 ####[facility] LABCLIA [id number] [place] [address] [place] LIPID PANEL, NONFASTINGon Cholesterol [Mass/Vol] 117 mg/dL Normal <200 [facility] Comment on above: Order Comment: Ehsan nunes Type: BLOOD SPECIMENOrdering Facility: [facility] Address: [address] [place] [address] Result Comment: <200 mg/dL, Desirable 200-239 mg/dL, Borderline high >239 mg/dL, High Performed By: #### L IPNF, 3016-3 ####[facility] LABIA [id number] [place] [address] [place] HDL CHOLESTEROL, NF 49 mg/dL Normal >39 [facility] Comment on above: Order Comment: Ehsan nunes Type: BLOOD SPECIMENOrdering Facility: [facility] Address: [address] [place] [address] Result Comment: 40-5 9 mg/dL, Acceptable >59 mg/dL, High: Negative risk factor for coronary heart disease <40 mg/dL, Low: Positive risk factor for coronary heart disease Performed By: #### L PHAN, 3015-3 ####[facility] LABCLIA [id number] [address] [place] LDL CHOLESTEROL, NF 52 mg/dL Normal <100 [facility] Comment on above: Order Comment: Speci men Type: BLOOD SPECIMENOrdering Facility: [facility] Address: [address] [place] [address] Result Comment: <100 mg/dL, Optimal 100-129 mg/dL, Near optimal/above optimal 130-159 mg/dL, Borderline high 160-189 mg/dL, High >189 mg/dL, Very high Secondary prevention optimal LDL Cholesterol levels are recommended to be < 70 mg/dL Performed By: #### L PHAN, 3015- ####[facility] LABCLIA [id number] [address] [place] LDL/HDL RATIO, NF 1.06 mg/dL Normal <2.54 [facility] Comment on above: Order Comment: Meghani men Type: BLOOD SPECIMENOrdering Facility: [facility] Address: [address] [place] [address] Result Comment: Refe rence: 1. National Cholesterol Education Program ATP III Guideline At-A-Glance Quick Desk Reference: National Heart, Lung, and Blood [place]. National Institutes of Health. 2001: NIH Publication No. 01-3305. 2. An International Atherosclerosis Society position paper: global recommendations for the management of dyslipidemia: executive summary, Atherosclerosis. 2014: 232(2):410-413. Performed By: #### L PHAN, 3015-3 ####[facility] LABCLIA [id number] [place] [address] [place] NON HDL CHOL, NF 68 mg/dL Normal <[address] [facility] Comment on above: Order Comment: Speci men Type: BLOOD SPECIMENOrdering Facility: [facility] Address: [address] [place] [address] Result Comment: <130 mg/dL, Optimal 130-159 mg/dL, Near optimal/above optimal 160-189 mg/dL, Borderline high 190-219 mg/dL, High >219 mg/dL, Very high Secondary prevention optimal non HDL Cholesterol levels are recommended to be <100 mg/dL Performed By: #### L IPNF, 3015-3 ####[facility] LABCLIA [id number] [place] [address] [place] T CHOL/HDL RATIO NF 2.39 mg/dL Normal <5.10 [facility] Comment on above: Order Comment: Speci men Type: BLOOD SPECIMENOrdering Facility: [facility] Address: [address] [place] [address] Performed By: #### L IPNF, 3015-3 ####[facility] LABCLIA [id number] [place] [address] [place] TRIGLYCERIDES, NF 79 mg/dL Normal <150 [facility] Comment on above: Order Comment: Speci men Type: BLOOD SPECIMENOrdering Facility: [facility] Address: [address] [place] [address] Result Comment: <150 mg/dL, Normal 150-199 mg/dL, Borderline high 200-499 mg/dL, High >499 mg/dL, Very high Performed By: #### L IPNF, 3015-3 ####[facility] LABCLIA [id number] [place] [address] [place] VLDL CHOLESTEROL, NF 16 mg/dL Normal <30 [facility] Comment on above: Order Comment: Speci men Type: BLOOD SPECIMENOrdering Facility: [facility] Address: [address] [place] [address] Performed By: #### L IPNF, 3015-3 ####[facility] LABCLIA [id number] [place] [id number] [place] Magnesium SerPl-mCncon 04-17 Magnesium [Mass/Vol] 2.2 mg/dL Normal 1.7-2.3 [facility] Comment on above: Order Comment: Speci men Type: BLOOD SPECIMENOrdering Facility: [facility] Address: [address] [place] [address] Performed By: #### 1 9123-9, 88260-6 ####[facility] [id number] [place] [address] [place] PSA SerPl-mCncon 04-17-2024 Prostate specific Ag [Mass/Vol] 1.48 ng/mL Normal <2.60 [facility] Comment on above: Order Comment: Speci men Type: BLOOD SPECIMENOrdering Facility: [facility] Address: [address] [place] [address] Result Comment: Tota l PSA test methodology used is the Electrochemiluminescence Immunoassay by [employer]. Total PSA values by differing methodologies cannot be interchanged. Performed By: #### 2 857-1 ####[facility] LABCLIA [id number] [place] [address] [place] Retics #on 04-17-2024 Reticulocytes (Bld) [#/Vol] 0.60793 10*3/uL Normal 0.018-0.100 [facility] Comment on above: Order Comment: Speci men Type: BLOOD SPECIMENOrdering Facility: [facility] Address: [address] [place] [address] Performed By: #### 5 7021-8, 33548-9 ####[facility]ENCA [id number] [place] [address] [place] Reticulocytes (Bld) [#/Vol]o n 04-17-2024 Reticulocytes/100 RBC (Bld) 1.2 % Normal 0.4-2.0 [facility] Comment on above: Order Comment: Speci men Type: BLOOD SPECIMENOrdering Facility: [facility] Address: [address] [place], [place] [address] Performed By: #### 5 7021-8, 39433-6 ####[facility] ANETTEST. [facility] [id number] [place] [address] [place] TSH SerPl-aCncon 04-17-2024 TSH Qn 2.780 m[IU]/L Normal 0.270-4.200 [facility] Comment on above: Order Comment: Speci men Type: BLOOD SPECIMENOrdering Facility: [facility] Address: [address] [place] [address] Performed By: #### L IPNF, 3016-3 ####[facility] LABCLIA [id number] [place] [id number] [place] [id number] 03-31-2024 [id number] HNO ID: [id number] Author: TYE FLORES PT Service: ? Author Type: Physical Therapist Type: [id number] Filed: 03/31/2024 16:43 Note Text: [facility] Physical Therapy Plan of Care Certification Patient Name: Jacob Landa : 1955 [facility] #: [id number] Date: 09/06/2023 To: Jesus Manuel Resendiz PA-C [...] Patient to be seen for Therapeutic exercise (95072), Neuromuscular re-education (48995), Manual therapy (49563), Therapeutic activities (66523), Self-alf management (09141), Patient/Family/Caregiver Education PLAN FOR NEXT VISIT: Core strengthening For further details regarding this patient refer to the Physical Therapy electronically documented visit dated 09/06/2023. Provider Attestation I have reviewed the treatment plan for Jacob Landa, [facility]# [id number] for the period of 09/06/23 -- 10/11/23, established on 09/06/2023. Signature certifies the need for therapy services. Normal [facility] CNOVon 03-11-2024 CNOV Office Visit (FAMPWS ) -- JACOB LANDA ([id number]) 1955 M Date Time Provider Department 03/11/24 [...] (Radiation Oncology) Luly Gaffney RN as Specialty Peoplesoft Fscm Developer (Oncology) Richard Jenkins DO as Referring (Hematology/Oncology) Haroldo Noland MD (Cardiology) Sena Seymour, MICHELE (Inactive) as Push Button Switch Assembler Friend, Bud [place] DO (Gastroenterology) Helen Gibson, Maegan Ferguson, RN as Primary Care Child Development Specialist Medical/Family history review Reviewed and updated problem list, medical/surgical/family/so cial history, medications, and allergies. Opioid use review Opioid Medications (last 90 days) 01/03/2024 Opioid Medications hydrocodone/acetaminophen 1 tablet q 6 H PRN Given at [facility] ER 09/10/23 ORAL (2.5-325 mg tab) [...] vertebra (HCC) 07/12/2023 Coronary artery disease involving [place] coronary artery without angina pectoris Seeing Dr. [...] valve diso (more content not included)... Normal [facility] Basic Metabolic Profile (BMP )on 02-17-2024 BUN/CRE 11.7 RATIO Normal 10-20 [facility] Comment on above: Performed By: #### L 500.2500, L100.0500 ####[facility] [address] [place], [address] CA,Total 8.2 mg/dL Low 8.5-10.1 [facility] Comment on above: Performed By: #### L 500.2500, L100.0500 ####[facility] [address] [place], [address] Chloride [Moles/Vol] 105 mmol/L Normal 98-107 [facility] Comment on above: Performed By: #### L 500.2500, L100.0500 ####[facility] [address] [place], [address] CO2 [Moles/Vol] 24.0 mmol/L Normal 21.0-32.0 [facility] Comment on above: Performed By: #### L 500.2500, L100.0500 ####[facility] [address] [place], [address] Creatinine [Mass/Vol] 4.10 mg/dL High 0.70-1.30 [facility] Comment on above: Result Comment: The validity of the calculated GFR GFRAA in patients over 70 years has not been determined. Clinical correlation is essential. Performed By: #### L 500.2500, L100.0500 ####[facility] [address] [place], [address] ECRCL 20.16 ml/min Normal [facility] Comment on above: Performed By: #### L 500.2500, L100.0500 ####[facility] [address] [place], [address] EST GFR - AA 19 mL/min Low >60 [facility] Comment on above: Result Comment: Afri can Ivorian GFR Calc Performed By: #### L 500.2500, L100.0500 ####[facility] [address] [place], [address] GAP 7 Normal 5-15 [facility] Comment on above: Performed By: #### L 500.2500, L100.0500 ####[facility] [address] [place], [address] GFR/1.73 sq M.predicted among non-blacks MDRD (S/P/Bld) [Vol rate/Area] 15 mL/min/{1.73_m2} Low >60 [facility] Comment on above: Result Comment: Non- GFR Calc Performed By: #### L 500.2500, L100.0500 ####[facility] [address] [place], [address] Glucose [Mass/Vol] 93 mg/dL Normal 74-106 [facility] Comment on above: Performed By: #### L 500.2500, L100.0500 ####[facility] [address] [place], [address] Potassium [Moles/Vol] 4.8 mmol/L Normal 3.5-5.1 [facility] Comment on above: Performed By: #### L 500.2500, L100.0500 ####[facility] [address] [place], [address] Sodium [Moles/Vol] 136 mmol/L Normal 136-145 [facility] Comment on above: Performed By: #### L 500.2500, L100.0500 ####[facility] [address] [place], [address] Urea nitrogen [Mass/Vol] 48 mg/dL High 7-18 [facility] Comment on above: Performed By: #### L 500.2500, L100.0500 ####[facility] [address] [place], [address] CBC-Complete Blood Cnt No Di ffon 02-17-2024 Erythrocyte distribution width (RBC) [Ratio] 19.0 % High 11.6-14.6 [facility] Comment on above: Performed By: #### L 500.2500, L100.0500 ####[facility] [address] [place], [address] Hematocrit (Bld) [Volume fraction] 34.3 % Low 40-54 [facility] Comment on above: Performed By: #### L 500.2500, L100.0500 ####[facility] [address] [place], [address] Hemoglobin (Bld) [Mass/Vol] 10.5 g/dL Low 13.0-16.5 [facility] Comment on above: Performed By: #### L 500.2500, L100.0500 ####[facility] [address] [place], [address] MCH (RBC) [Entitic mass] 28.2 pg Normal 27.0-32.0 [facility] Comment on above: Performed By: #### L 500.2500, L100.0500 ####[facility] [address] [place], [address] MCHC (RBC) [Mass/Vol] 30.6 g/dL Low 32-36 [facility] Comment on above: Performed By: #### L 500.2500, L100.0500 ####[facility] [address] [place], [address] MCV (RBC) [Entitic vol] 92.0 fL Normal 80-94 [facility] Comment on above: Performed By: #### L 500.2500, L100.0500 ####[facility] [address] [place], [address] Platelet mean volume (Bld) [Entitic vol] 8.7 fL Normal 6.2-12.0 [facility] Comment on above: Performed By: #### L 500.2500, L100.0500 ####[facility] [address] [place], [address] Platelets (Bld) [#/Vol] 104 10*3/uL Low 150-450 [facility] Comment on above: Performed By: #### L 500.2500, L100.0500 ####[facility] [address] [place], [address] RBC (Bld) [#/Vol] 3.73 10*6/uL Low 4.6-6.2 [facility] Comment on above: Performed By: #### L 500.2500, L100.0500 ####[facility] [address] [place], [address] RDW SD 63.3 fl High 35.1-43.9 [facility] Comment on above: Performed By: #### L 500.2500, L100.0500 ####[facility] [address] [place], [address] WBC (Bld) [#/Vol] 4.9 10*3/uL Normal 4.4-11.0 [facility] Comment on above: Performed By: #### L 500.2500, L100.0500 ####[facility] [address] [place], [address] Basic Metabolic Profile (BMP )on 02-16-2024 BUN/CRE 10.3 RATIO Normal 10-20 [facility] Comment on above: Performed By: #### L 500.2500, L100.0500 ####[facility] [address] [place], [address] CA,Total 8.2 mg/dL Low 8.5-10.1 [facility] Comment on above: Performed By: #### L 500.2500, L100.0500 ####[facility] [address] [place], [address] Chloride [Moles/Vol] 106 mmol/L Normal 98-107 [facility] Comment on above: Performed By: #### L 500.2500, L100.0500 ####[facility] [address] [place], [address] CO2 [Moles/Vol] 23.0 mmol/L Normal 21.0-32.0 [facility] Comment on above: Performed By: #### L 500.2500, L100.0500 ####[facility] [address] [place], [address] Creatinine [Mass/Vol] 3.10 mg/dL High 0.70-1.30 [facility] Comment on above: Result Comment: The validity of the calculated GFR GFRAA in patients over 70 years has not been determined. Clinical correlation is essential. Performed By: #### L 500.2500, L100.0500 ####[facility] [address] [place], [address] ECRCL 26.69 ml/min Normal [facility] Comment on above: Performed By: #### L 500.2500, L100.0500 ####[facility] [address] [place], [address] EST GFR - AA 26 mL/min Low >60 [facility] Comment on above: Result Comment: Afri can Ivorian GFR Calc Performed By: #### L 500.2500, L100.0500 ####[facility] [address] [place], [address] GAP 7 Normal 5-15 [facility] Comment on above: Performed By: #### L 500.2500, L100.0500 ####[facility] [address] [place], [address] GFR/1.73 sq M.predicted among non-blacks MDRD (S/P/Bld) [Vol rate/Area] 21 mL/min/{1.73_m2} Low >60 [facility] Comment on above: Result Comment: Non- GFR Calc Performed By: #### L 500.2500, L100.0500 ####[facility] [address] [place], [address] Glucose [Mass/Vol] 74 mg/dL Normal 74-106 [facility] Comment on above: Performed By: #### L 500.2500, L100.0500 ####[facility] [address] [place], [address] Potassium [Moles/Vol] 5.1 mmol/L Normal 3.5-5.1 [facility] Comment on above: Performed By: #### L 500.2500, L100.0500 ####[facility] [address] [place], [address] Sodium [Moles/Vol] 136 mmol/L Normal 136-145 [facility] Comment on above: Performed By: #### L 500.2500, L100.0500 ####[facility] [address] [place], [address] Urea nitrogen [Mass/Vol] 32 mg/dL High 7-18 [facility] Comment on above: Performed By: #### L 500.2500, L100.0500 ####[facility] [address] [place], [address] CBC-Complete Blood Cnt No Di ffon 02-16-2024 Erythrocyte distribution width (RBC) [Ratio] 19.1 % High 11.6-14.6 [facility] Comment on above: Performed By: #### L 500.2500, L100.0500 ####[facility] [address] [place], [address] Hematocrit (Bld) [Volume fraction] 38.8 % Low 40-54 [facility] Comment on above: Performed By: #### L 500.2500, L100.0500 ####[facility] [address] [place], [address] Hemoglobin (Bld) [Mass/Vol] 11.5 g/dL Low 13.0-16.5 [facility] Comment on above: Performed By: #### L 500.2500, L100.0500 ####[facility] [address] [place], [address] MCH (RBC) [Entitic mass] 27.8 pg Normal 27.0-32.0 [facility] Comment on above: Performed By: #### L 500.2500, L100.0500 ####[facility] [address] [place], [address] MCHC (RBC) [Mass/Vol] 29.6 g/dL Low 32-36 [facility] Comment on above: Performed By: #### L 500.2500, L100.0500 ####[facility] [address] [place], [address] MCV (RBC) [Entitic vol] 93.9 fL Normal 80-94 [facility] Comment on above: Performed By: #### L 500.2500, L100.0500 ####[facility] [address] [place], [address] Platelet mean volume (Bld) [Entitic vol] 9.0 fL Normal 6.2-12.0 [facility] Comment on above: Performed By: #### L 500.2500, L100.0500 ####[facility] [address] [place], [address] Platelets (Bld) [#/Vol] 110 10*3/uL Low 150-450 [facility] Comment on above: Performed By: #### L 500.2500, L100.0500 ####[facility] [address] [place], [place], [address] RBC (Bld) [#/Vol] 4.13 10*6/uL Low 4.6-6.2 [facility] Comment on above: Performed By: #### L 500.2500, L100.0500 ####[facility] [address] [place], [address] RDW SD 64.0 fl High 35.1-43.9 [facility] Comment on above: Performed By: #### L 500.2500, L100.0500 ####[facility] [address] [place], [address] WBC (Bld) [#/Vol] 8.6 10*3/uL Normal 4.4-11.0 [facility] Comment on above: Performed By: #### L 500.2500, L100.0500 ####[facility] [address] [place], [address] 12 Lead EKGon 02-15-2024 12 Lead E[address] [facility] Cardiovascular Services [address] [place] [address] 12 Lead EKG 02/15/24 0517 MR#: [id number] Acct: [id number] Name: JACOB LANDA Rep #: [id number] : 1955 68 From: Haroldo Noland MD Attending Dr: Dr. Gayatri Roy, DO Status: DIS I N Ordering Dr: Cameron Rosas MD Date: 02/15/24 Location: [facility] Sex: M C Admitted: 02/15/24 Test Reason [...] UNCONFIRMED Confirmed by LUDIN MANNING, HAROLDO ([id number]), makeup editor CHRISTIANO OWENS ([id number]) on 02/18/2024 12:37:01 PM Referred By: CORADO Confirmed By: HAROLDO NOLAND MD 02/18/24 1237 Date Haroldo Noland MD CC: Dr. Cameron Rosas MD; Dr. Yaw Singh MD; Dr. Gayatri Roy, DO Signed Normal [facility] CBC W/Diff, Automatedon 11-0 Absolute Lymph 0.62 X10 3/uL Low 0.83-4.51 [facility] Comment on above: Performed By: #### L 500.4050, L501.2300, L100.0100, L501.5200, L501.9520 #### [facility] Laboratory [address] [place], [address] Absolute Neut 3.7 X10 3/uL Normal 2.0-7.7 [facility] Comment on above: Performed By: #### L 500.4050, L501.2300, L100.0100, L501.5200, L501.9520 #### [facility] [address] [place], [address] Basophils/100 WBC (Bld) 0.8 % Normal 0-1 [facility] Comment on above: Performed By: #### L 500.4050, L501.2300, L100.0100, L501.5200, L501.9520 #### [facility] [address] [place], [address] Eosinophils/100 WBC (Bld) 1.0 % Normal 0-5 [facility] Comment on above: Performed By: #### L 500.4050, L501.2300, L100.0100, L501.5200, L501.9520 #### [facility] [address] [place], [address] Erythrocyte distribution width (RBC) [Ratio] 19.5 % High 11.6-14.6 [facility] Comment on above: Performed By: #### L 500.4050, L501.2300, L100.0100, L501.5200, L501.9520 #### [facility] [address] [place], [address] Hematocrit (Bld) [Volume fraction] 40.6 % Normal 40-54 [facility] Comment on above: Performed By: #### L 500.4050, L501.2300, L100.0100, L501.5200, L501.9520 #### [facility] [address] [place], [address] Hemoglobin (Bld) [Mass/Vol] 12.3 g/dL Low 13.0-16.5 [facility] Comment on above: Performed By: #### L 500.4050, L501.2300, L100.0100, L501.5200, L501.9520 #### [facility] [address] [place], [address] IG% 0.400 Normal 0.0-0.9 [facility] Comment on above: Result Comment: IG% - Immature Granulocytes (promyelocytes, myelocytes and metamyelocytes) > 1% indicates that a LEFT SHIFT is Present. Performed By: #### L 500.4050, L501.2300, L100.0100, L501.5200, L501.9520 #### [facility] [address] [place], [address] Lymphocytes/100 WBC (Bld) 12.7 % Low 19-41 [facility] Comment on above: Performed By: #### L 500.4050, L501.2300, L100.0100, L501.5200, L501.9520 #### [facility] [address] [place], [address] MCH (RBC) [Entitic mass] 28.0 pg Normal 27.0-32.0 [facility] Comment on above: Performed By: #### L 500.4050, L501.2300, L100.0100, L501.5200, L501.9520 #### [facility] [address] [place], [address] MCHC (RBC) [Mass/Vol] 30.3 g/dL Low 32-36 [facility] Comment on above: Performed By: #### L 500.4050, L501.2300, L100.0100, L501.5200, L501.9520 #### [facility] [address] [place], [address] MCV (RBC) [Entitic vol] 92.5 fL Normal 80-94 [facility] Comment on above: Performed By: #### L 500.4050, L501.2300, L100.0100, L501.5200, L501.9520 #### [facility] [address] [place], [address] Monocytes/100 WBC (Bld) 8.6 % Normal 0-10 [facility] Comment on above: Performed By: #### L 500.4050, L501.2300, L100.0100, L501.5200, L501.9520 #### [facility] [address] [place], [address] Neutrophils/100 WBC (Bld) 76.5 % High 47-70 [facility] Comment on above: Performed By: #### L 500.4050, L501.2300, L100.0100, L501.5200, L501.9520 #### [facility] [address] [place], [address] Nucleated RBC (Bld) [#/Vol] 0 10*3/uL Normal 0-5 [facility] Comment on above: Performed By: #### L 500.4050, L501.2300, L100.0100, L501.5200, L501.9520 #### [facility] [address] [place], [address] Platelet mean volume (Bld) [Entitic vol] 9.6 fL Normal 6.2-12.0 [facility] Comment on above: Performed By: #### L 500.4050, L501.2300, L100.0100, L501.5200, L501.9520 #### [facility] [address] [place], [address] Platelets (Bld) [#/Vol] 120 10*3/uL Low 150-450 [facility] Comment on above: Performed By: #### L 500.4050, L501.2300, L100.0100, L501.5200, L501.9520 #### [facility] [address] [place], [address] RBC (Bld) [#/Vol] 4.39 10*6/uL Low 4.6-6.2 [facility] Comment on above: Performed By: #### L 500.4050, L501.2300, L100.0100, L501.5200, L501.9520 #### [facility] [address] [place], [address] RDW SD 62.8 fl High 35.1-43.9 [facility] Comment on above: Performed By: #### L 500.4050, L501.2300, L100.0100, L501.5200, L501.9520 #### [facility] [address] [place], [address] WBC (Bld) [#/Vol] 4.9 10*3/uL Normal 4.4-11.0 [facility] Comment on above: Performed By: #### L 500.4050, L501.2300, L100.0100, L501.5200, L501.9520 #### [facility] [address] [place], [address] Comprehensive Metabolic Prof ilon 02-15-2024 Albumin [Mass/Vol] 2.4 g/dL Low 3.2-5.0 [facility] Comment on above: Performed By: #### L 500.4050, L501.2300, L100.0100, L501.5200, L501.9520 #### [facility] [address] [place], [address] Albumin/Globulin [Mass ratio] 0.7 {ratio} Low 0.9-2.4 [facility] Comment on above: Performed By: #### L 500.4050, L501.2300, L100.0100, L501.5200, L501.9520 #### [facility] [address] [place], [address] ALK P 108 U/L Normal 45-117 [facility] Comment on above: Performed By: #### L 500.4050, L501.2300, L100.0100, L501.5200, L501.9520 #### [facility] [address] [place], [address] ALT [Catalytic activity/Vol] 38 U/L Normal 16-61 [facility] Comment on above: Performed By: #### L 500.4050, L501.2300, L100.0100, L501.5200, L501.9520 #### [facility] [address] [place], [address] AST [Catalytic activity/Vol] 16 U/L Normal 15-37 [facility] Comment on above: Performed By: #### L 500.4050, L501.2300, L100.0100, L501.5200, L501.9520 #### [facility] [address] [place], [address] Bilirubin [Mass/Vol] 0.50 mg/dL Normal 0.20-1.00 [facility] Comment on above: Result Comment: For patients on eltrombopag therapy, use of Dimension [place] TBIL is not recommended. Performed By: #### L 500.4050, L501.2300, L100.0100, L501.5200, L501.9520 #### [facility] [address] [place], [address] BUN/CRE 9.9 RATIO Low 10-20 [facility] Comment on above: Performed By: #### L 500.4050, L501.2300, L100.0100, L501.5200, L501.9520 #### [facility] [address] [place], [address] CA,Total 8.3 mg/dL Low 8.5-10.1 [facility] Comment on above: Performed By: #### L 500.4050, L501.2300, L100.0100, L501.5200, L501.9520 #### [facility] [address] [place], [address] Chloride [Moles/Vol] 104 mmol/L Normal 98-107 [facility] Comment on above: Performed By: #### L 500.4050, L501.2300, L100.0100, L501.5200, L501.9520 #### [facility] [address] [place], [address] CO2 [Moles/Vol] 28.0 mmol/L Normal 21.0-32.0 [facility] Comment on above: Performed By: #### L 500.4050, L501.2300, L100.0100, L501.5200, L501.9520 #### [facility] [address] [place], [address] Creatinine [Mass/Vol] 3.43 mg/dL High 0.70-1.30 [facility] Comment on above: Result Comment: The validity of the calculated GFR GFRAA in patients over 70 years has not been determined. Clinical correlation is essential. Performed By: #### L 500.4050, L501.2300, L100.0100, L501.5200, L501.9520 #### [facility] [address] [place], [address] ECRCL 23.15 ml/min Normal [facility] Comment on above: Performed By: #### L 500.4050, L501.2300, L100.0100, L501.5200, L501.9520 #### [facility] [address] [place], [address] EST GFR - AA 23 mL/min Low >60 [facility] Comment on above: Result Comment: Afri can Ivorian GFR Calc Performed By: #### L 500.4050, L501.2300, L100.0100, L501.5200, L501.9520 #### [facility] [address] [place], [address] GAP 7 Normal 5-15 [facility] Comment on above: Performed By: #### L 500.4050, L501.2300, L100.0100, L501.5200, L501.9520 #### [facility] [address] [place], [address] GFR/1.73 sq M.predicted among non-blacks MDRD (S/P/Bld) [Vol rate/Area] 19 mL/min/{1.73_m2} Low >60 [facility] Comment on above: Result Comment: Non- GFR Calc Performed By: #### L 500.4050, L501.2300, L100.0100, L501.5200, L501.9520 #### [facility] [address] [place], [address] Globulin (S) [Mass/Vol] 3.4 g/dL Normal 2.2-4.2 [facility] Comment on above: Performed By: #### L 500.4050, L501.2300, L100.0100, L501.5200, L501.9520 #### [facility] [address] [place], [address] Glucose [Mass/Vol] 85 mg/dL Normal 74-106 [facility] Comment on above: Performed By: #### L 500.4050, L501.2300, L100.0100, L501.5200, L501.9520 #### [facility] [address] [place], [address] Potassium [Moles/Vol] 4.4 mmol/L Normal 3.5-5.1 [facility] Comment on above: Performed By: #### L 500.4050, L501.2300, L100.0100, L501.5200, L501.9520 #### [facility] [address] [place], [address] Sodium [Moles/Vol] 139 mmol/L Normal 136-145 [facility] Comment on above: Performed By: #### L 500.4050, L501.2300, L100.0100, L501.5200, L501.9520 #### [facility] [address] [place], [address] T PROT 5.8 g/dL Low 6.4-8.2 [facility] Comment on above: Performed By: #### L 500.4050, L501.2300, L100.0100, L501.5200, L501.9520 #### [facility] [address] [place], [address] Urea nitrogen [Mass/Vol] 34 mg/dL High 10-24 [facility] Comment on above: Performed By: #### L 500.4050, L501.2300, L100.0100, L501.5200, L501.9520 #### [facility] [address] [place], [address] Consultation - Cardiologyon 02-15-2024 Consultation - Cardiology [facility] Medical Records Department [address] [place] [address] Consultation - Cardiology 02/15/24824 MR#: [id number] Acct: [id number] Name: JACOB LANDA Rep #: [id number] : 1955 68 From: Trinh Briones MD PCP: Dr. Yaw Singh MD Status:ADM IN Location: [place] [address] Pt seen evaluated w/DEVYN. I personally interviewed [...] Once stable patient to follow-up with primary utilization specialist at [facility] cardiac team for continuation of [...] is a 68 M who presented To [facility] emergency room on 02/14/2024 with left [...] In October 2023 patient was admitted to [facility] with sepsis secondary to acute cystitis [...] edema. He is still able to urinate. 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 Normal [facility] Consultation - Nephrologyon 02-15-2024 Consultation - Nephrology [facility] Medical Records Department [address] [place] [address] Consultation - Nephrology 02/15/24 1427 MR#: [id number] Acct: [id number] Name: JACOB LANDA Rep #: [id number] : 1955 68 From: Gaudencio Greenberg MD PCP: Dr. aYw Singh MD Status:ADM IN Location: [place] [id number] Assessment Plan Assessment/Plan (1) End stage renal [...] scheduled to go to surgery later today. 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 Normal [facility] Consultation - Orthopedicson 02-15-2024 Consultation - Orthopedics [facility] Medical Records Department [address] [place] [address] Consultation - Orthopedics 02/15/24 1605 MR#: [id number] Acct: [id number] Name: JACOB LANDA Rep #: [id number] : 1955 68 From: Jerod Marc MD PCP: Dr. Yaw Singh MD Status:ADM [facility] Consult Data Date of Consult: 02/15/24 [...] pain. Patient denies a history of DVTs. 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 Normal [facility] Decalcification bone/plaqueo n 02-15-2024 Decalcification bone/plaque Patient Age/Sex Location Account Attending Physician SYEDAJACOB TATE 68/M [facility] [id number] Dr. Gayatri Roy, DO Specimen: [id number] Received: 02/18/24 Status: ORAPamela Alberto Num: [id number] Spec Type: TOTAL HIP Subm Dr: Dr. [...] measuring 2.5 x 1.0 x 0.4 cm. Sales Person sections are submitted in three cassettes as follows: 1 - soft tissue, entirely submitted, 2 - detached pieces of bone after decalcification, 3 - femoral head after decalcification. / 02/18/2024 TC:5 [facility]: [address], [address] Patient Age/Sex Location Account Attending Physician JACOB LANDA 68/M [facility] [id number] Dr. Gayatri Roy DO Signed (signature on file) Dr. Scott Adame DO 02/21/24 1135 Normal [facility] Comment on above: Performed By: #### P DEC ####[facility] [address] [place], [place], [address] Hip Min 2 Views (Portable)on 02-15-2024 Hip Min 2 Views (Portable) [facility] Imaging Services [address] [place] [address] Hip Min 2 Views (Portable) MR#: [id number] Acct: [id number] Name: JACOB LANDA Rep #: [id number] : 1955 M 68 From: Maegan Gamble MD PCP: Dr. Yaw Singh MD Status: ADM IN Study: Hip Min 2 Views (Portable) Date of Exam: 02/14 Exam# [id number] Ordering Dr: Jerod Marc MD [id number] EXAM: XR LEFT HIP WITH PELVIS WHEN PERFORMED, 2 OR 3 VIEWS CLINICAL INDICATION: Post Op -- AP both hips on single gissell/lateral of op hip PACU TECHNIQUE: 1 view of the left hip, 2 views of the pelvis, 1 mildly rotated to the left. COMPARISON: February 14, 2024 preop exam. FINDINGS: BONES/JOINTS: Mildly widened [place] left acetabulum, left femoral head prosthesis appears adequately positioned. The pelvis appears to be demineralized. SOFT TISSUES: Mild soft tissue swelling and slight scattered gas. RAD/Hip Min 2 Views (Portable) IMPRESSION: Well-positioned left femoral head prosthesis. Postop soft tissue changes. Electronically Signed: Maegan Gamble MD at 19:09 EST , CC: Dr. Yaw Singh MD; Dr. Jerod Marc MD Log Chain Worker: Signed Normal [facility] Hip Min 2 Views (Portable) [facility] Imaging Services [address] [place], [place] [address] Hip Min 2 Views (Portable) MR#: [id number] Acct: [id number] Name: JACOB LANDA Rep #: [id number] : 1955 M 68 From: Maegan Gamble MD PCP: Dr. Yaw Singh MD Status: ADM IN Study: Hip Min 2 Views (Portable) Date of Exam: 02/14 Exam# [id number] Ordering Dr: Jerod Marc MD [id number] Exam: XR Hip Unilateral with Pelvis when [...] Yaw Singh MD; Dr. Jerod Marc MD Log Chain Worker: Signed Normal [facility] Liver Profileon 02-15-2024 Albumin [Mass/Vol] 2.4 g/dL Low 3.2-5.0 [facility] Comment on above: Order Comment: FOR M ORNING LABS PER DOUG Performed By: #### L 300.3900, L500.3400, L300.4310 #### [facility] [address] [place], [address] ALK P 105 U/L Normal 45-117 [facility] Comment on above: Order Comment: FOR M ORNING LABS PER DOUG Performed By: #### L 300.3900, L500.3400, L300.4310 #### [facility] [address] [place], [address] ALT [Catalytic activity/Vol] 37 U/L Normal 16-61 [facility] Comment on above: Order Comment: FOR M ORNING LABS PER DOUG Performed By: #### L 300.3900, L500.3400, L300.4310 #### [facility] [address] [place], [address] AST [Catalytic activity/Vol] 15 U/L Normal 15-37 [facility] Comment on above: Order Comment: FOR M ORNING LABS PER DOUG Performed By: #### L 300.3900, L500.3400, L300.4310 #### [facility] [address] [place], [address] Bilirubin [Mass/Vol] 0.60 mg/dL Normal 0.20-1.00 [facility] Comment on above: Order Comment: FOR M ORNING LABS PER DOUG Result Comment: For patients on eltrombopag therapy, use of Dimension [place] TBIL is not recommended. Performed By: #### L 300.3900, L500.3400, L300.4310 #### [facility] [address] [place], [address] Bilirubin.direct [Mass/Vol] 0.21 mg/dL Normal 0.00-0.30 [facility] Comment on above: Order Comment: FOR M ORNING LABS PER DOUG Performed By: #### L 300.3900, L500.3400, L300.4310 #### [facility] [address] [place], [address] Globulin (S) [Mass/Vol] 3.9 g/dL Normal 2.2-4.2 [facility] Comment on above: Order Comment: FOR M ORNING LABS PER DOUG Performed By: #### L 300.3900, L500.3400, L300.4310 #### [facility] [address] [place], [address] T PROT 6.3 g/dL Low 6.4-8.2 [facility] Comment on above: Order Comment: FOR M SALOME LABS PER DOUG Performed By: #### L 300.3900, L500.3400, L300.4310 #### [facility] [address] [place], [address] MR/POSTOP.ANEon 02-15-2024 MR/POSTOP.ANE [facility] Medical Records Department [address] [place] [address] Anesthesia Postop Eval I 02/15/241806 MR#: [id number] Acct: [id number] Name: JACOB LANDA Rep #: [id number] : 1955 68 From: Cameron Rosas MD PCP: Dr. Yaw Singh MD Status:ADM IN Y Race: C Location: [place] [address] Anesthesia: Postop Eval I Current Vital Signs [...] MD Cosigner Signature: Date CC: Signed Normal [facility] MR/USVJQHIB5qh 02-15-2024 MR/POSTOPAN2 [facility] Medical Records Department [address] [place] [address] Anesthesia Postop Eval II 02/15/241807 MR#: [id number] Acct: [id number] Name: JACOB LANDA Rep #: [id number] : 1955 68 From: Cameron Rosas MD PCP: Dr. Yaw Singh MD Status:ADM IN Y Race: C Location: [place] [address] Anesthesia Postop Eval I Sum Postop Eval [...] MD Cosigner Signature: Date CC: Signed Normal [facility] Magnesiumon 02-15-2024 Magnesium [Mass/Vol] 2.2 mg/dL Normal 1.6-2.6 [facility] Comment on above: Performed By: #### L 500.4050, L501.2300, L100.0100, L501.5200, L501.9520 ####[facility] [address] [place], [address] Operative Reporton 4 Operative Report [facility] Medical Records Department [address] [place] [address] Operative Report 02/15/24 1730 MR#: [id number] Acct: [id number] Name: JACOB LANDA Rep #: [id number] : 1955 68 From: Jerod Marc MD PCP: Dr. Yaw Singh MD Status:ADM [facility] Operative Report (Standard) Operative Information Surgery/Procedure Performed: [...] awakened by anesthesia and transferred to the [facility]. Patient was then transferred to the PACU for recovery. Postoperative plan: Patient will get 24 hours postop antibiotics. Patient will get in-house physical therapy and will be weight-bear as tolerated. Patient will follow up in office in 2 weeks for a wound check and x- rays. Aspirin 81 mg p.o. twice daily for DVT p (more content not included)... Normal [facility] Partial Thromboplast Timeon 02-15-2024 aPTT Coag (Bld) [Time] 32.2 s Normal 24.1-36.2 [facility] Comment on above: Performed By: #### L 300.3900, L500.3400, L300.4310 #### [facility] [address] [place], [address] Phosphoruson 02-15-2024 Phosphate [Mass/Vol] 4.9 mg/dL Normal 2.5-4.9 [facility] Comment on above: Performed By: #### L 500.4050, L501.2300, L100.0100, L501.5200, L501.9520 #### [facility] [address] [place], [address] Prothrombin Time w/INRon INR Coag (PPP) [Relative time] 1.5 {INR} Normal [facility] Comment on above: Performed By: #### L 300.3900, L500.3400, L300.4310 #### [facility] [address] [place], [address] PT Coag (PPP) [Time] 18.0 s High 11.7-14.9 [facility] Comment on above: Performed By: #### L 300.3900, L500.3400, L300.4310 #### [facility] [address] [place], [address] Thyroid Stim Hormone (TSH)on 02-15-2024 TSH 2.630 uIU/mL Normal 0.358-3.740 [facility] Comment on above: Performed By: #### L 500.4050, L501.2300, L100.0100, L501.5200, L501.9520 ####[facility] [address] [place], [place], [address] Type AND Screenon 02-15-2024 ABO and Rh group Nom (Bld) Blood group A Rh(D) positive Normal [facility] Comment on above: Order Comment: SFRAC TURED HIP Performed By: #### B TS ####[facility] [address] [place], [place], [address] XR CHEST 2V FRONTAL/LATon XR CHEST 2V [...] consolidations/atelectasis , similar to the prior study. Log Chain Worker: MORGAN Transcribe Date/Time: Feb 02 2024 7:06P Dictated by : ALICE GARCIA MD This examination was interpreted and the report reviewed and electronically signed by: ALICE GARCIA MD on Feb 02 2024 7:08PM EST [id number] [facility] No Panel Informationon 01-23 IMPRESSION: Esophagectomy with gastric pull-through. Slow emptying of the stomach. Reflux into the esophagus. Delayed small bowel transit time of 4.5 hours. Log Chain Worker: MORGAN Transcribe Date/Time: Jan 24 2024 3:15P Dictated by : ELIAS CALVILLO MD This examination was interpreted and the report reviewed and electronically signed by: ELIAS CALVILLO MD on Jan 24 2024 3:22PM EST [facility] [employer] Radiology Study observation (narrative) [facility] No Panel InformationOrdered By: Ccf Provider on 01-24-2024 [facility] RF Gastrointestinal tract up per Views W [...] 4.5 hours. The terminal ileum appeared unremarkable. [facility] SY[place]GO Provider, [facility] - 01/24/2024 * * *Final Report* * [...] small bowel transit time of 4.5 hours. Log Chain Worker[facility] Transcribe Date/Time: Jan 24 2024 3:15P Dictated by : ELIAS CALVILLO MD This examination was interpreted and the report reviewed and electronically signed by: ELIAS CALVILLO MD on Jan 24 2024 3:22PM [facility] Small bowel Diameter USon * * [...] appeared unremarkable. [facility] SYNGO Provider, [facility] - 01/24/2024 * * *Final Report* * [...] small bowel transit time of 4.5 hours. Log Chain Worker: [facility] Transcribe Date/Time: Jan 24 2024 3:15P Dictated by : ELIAS CALVILLO MD This examination was interpreted and the report reviewed and electronically signed by: ELIAS CALVILLO MD on Jan 24 2024 3:22PM EST [facility] XR GI SMALL BOWEL FOLLOW-THR Uon 01-24-2024 [...] small bowel transit time of 4.5 hours. Log Chain Worker: [facility] Transcribe Date/Time: Jan 24 2024 3:15P Dictated by : ELIAS CALVILLO MD This examination was interpreted and the report reviewed and electronically signed by: ELIAS CALVILLO MD on Jan 24 2024 3:22PM EST [id number] [facility] XR UPPER GI SINGLE CONTRASTo n [...] small bowel transit time of 4.5 hours. Log Chain Worker: [facility] Transcribe Date/Time: Jan 24 2024 3:15P Dictated by : ELIAS CALVILLO MD This examination was interpreted and the report reviewed and electronically signed by: ELIAS CALVILLO MD on Jan 24 2024 3:22PM EST [id number] [facility] CBC W Auto Differential pane l (Bld)on 01-15-2024 Anisocytosis Ql (Bld) Present [facility] Basophils (Bld) [#/Vol] 0.04 10*3/uL [facility] Basophils/100 WBC (Bld) 0.6 % [facility] Differential cell count method Nom (Bld) Auto [facility] Eosinophils (Bld) [#/Vol] 0.06 10*3/uL [facility] Eosinophils/100 WBC (Bld) 0.9 % [facility] Erythrocyte distribution width (RBC) [Ratio] 19.7 % High 11.5 - 15.0 % [facility] Hematocrit (Bld) [Volume fraction] 31.4 % Low 39.0 - 51.0 % [facility] Hemoglobin (Bld) [Mass/Vol] 9.5 g/dL Low 13.0 - 17.0 g/dL [facility] Immature granulocytes (Bld) [#/Vol] 0.06 10*3/[facility]L [facility] Immature granulocytes/100 WBC (Bld) 0.9 % [facility] Interpretation and review of laboratory results Abnormal [facility] Lymphocytes (Bld) [#/Vol] 0.71 10*3/uL Low [facility] Lymphocytes/100 WBC (Bld) 11.1 % [facility] MCH (RBC) [Entitic mass] 27.1 pg 26.0 - 34.0 pg [facility] MCHC (RBC) [Mass/Vol] 30.3 g/dL Low 30.5 - 36.0 g/dL [facility] MCV (RBC) [Entitic vol] 89.5 fL 80.0 - 100.0 fL [facility] Monocytes (Bld) [#/Vol] 0.53 10*3/uL [facility] Monocytes/100 WBC (Bld) 8.3 % [facility] Neutrophils (Bld) [#/Vol] 4.98 10*3/uL [facility] Neutrophils/100 WBC (Bld) 78.2 % [facility] Nucleated RBC (Bld) [#/Vol] 0.03 10*3/uL High [facility] Nucleated RBC/100 WBC (Bld) [Ratio] 0.5 % /100 WBC [facility] Ovalocytes LM Ql (Bld) Few [facility] Platelet mean volume (Bld) [Entitic vol] 9.7 fL 9.0 - 12.7 fL [facility] Platelets (Bld) [#/Vol] 188 10*3/uL [facility] Comment on above: No clot detected. Platelets Estimate (Bld) [#/Vol] Adequate [facility] Polychromasia LM Ql (Bld) Slight [facility] RBC (Bld) [#/Vol] 3.51 10*6/uL Low 4.20 - 6.0 0 m/uL [facility] RBC Fragments Few Abnormal None Seen [facility] Red Cell Morph Reviewed: see result s of individual morphologies [facility] WBC (Bld) [#/Vol] 6.38 10*3/uL [facility] This is an appended report. These results have been appended to a previously verified report. [facility] RETICULOCYTE COUNTon 024 Reticulocytes (Bld) [#/Vol] 0.133 10*3/uL High [facility] Reticulocytes (Bld) [#/Vol]o n 01-15-2024 Interpretation and review of laboratory results Abnormal [facility] Reticulocytes/100 RBC (Bld) 3.8 % High 0.4 - 2.0 % [facility] Basic metabolic 2000 panelon 10-05-2023 Anion gap [Moles/Vol] 9 mmol/L 8 - 15 mmol/L [facility] Calcium [Mass/Vol] 8.9 mg/dL 8.5 - 10. 2 mg/dL [facility] Chloride [Moles/Vol] 107 mmol/L 98 - 10 7 mmol/L [facility] CO2 [Moles/Vol] 25 mmol/L 22 - 30 mmol/L [facility] Creatinine [Mass/Vol] 1.10 mg/dL 0.73 - 1.22 mg/dL [facility] GFR/1.73 sq M.predicted among non-blacks MDRD (S/P/Bld) [Vol rate/Area] 73 mL/min/{1.73_m2} - PINF [facility] Comment on above: Estimated Glomerular Filtration Rate [...] [Mass/Vol] 83 mg/dL 74 - 99 mg/dL [facility] Comment on above: The [place] Diabete s Association (ADA) provides guidance for [...] Standards of Medical Care in Diabetes 2016, [place] Diabetes Association. Diabetes Care. 2016.39(Suppl 1). Interpretation and review of laboratory results Normal [facility] Potassium [Moles/Vol] 4.3 mmol/L 3.7 - 5.1 mmol/L [facility] Sodium [Moles/Vol] 141 mmol/L 136 - 144 mmol/L [facility] Urea nitrogen [Mass/Vol] 15 mg/dL 9 - 24 mg/dL [facility] LIPID PANEL, NONFASTINGon Cholesterol [Mass/Vol] 205 mg/dL High NINF - 200 mg/dL [facility] Comment on above: <200 mg/dL, Desirabl e 200-239 mg/dL, Borderline high >239 mg/dL, High HDL Cholesterol, Nonfasting 46 mg/dL 39 - PINF mg/dL [facility] Comment on above: 40-59 mg/dL, Accepta ble >59 mg/dL, High: Negative risk factor for coronary heart disease <40 mg/dL, Low: Positive risk factor for coronary heart disease Interpretation and review of laboratory results Abnormal [facility] LDL Cholesterol, Nonfasting 144 mg/dL High NINF - 100 mg/dL [facility] Comment on above: <100 mg/dL, Optimal 100-129 mg/dL, Near optimal/above optimal 130-159 mg/dL, Borderline high 160-189 mg/dL, High >189 mg/dL, Very high Secondary prevention optimal LDL Cholesterol levels are recommended to be < 70 mg/dL LDL/HDL Ratio, Nonfasting 3.13 mg/dL High NINF - 2.54 mg/dL [facility] Comment on above: Reference: 1. National Cholesterol Education Program ATP III Guideline At-A-Glance Quick Desk Reference: National Heart, Lung, and Blood [place]. National Institutes of Health. 2001: NIH Publication No. 01-3305. 2. An International Atherosclerosis Society position paper: global recommendations for the management of dyslipidemia: executive summary, Atherosclerosis. 2014: 232(2):410-413. Non HDL Cholesterol, Nonfasting 159 mg/dL High NINF - 130 mg/dL [facility] Comment on above: <130 mg/dL, Optimal 130-159 mg/dL, Near optimal/above optimal 160-189 mg/dL, Borderline high 190-219 mg/dL, High >219 mg/dL, Very high Secondary prevention optimal non HDL Cholesterol levels are recommended to be <100 mg/dL Total Chol/HDL Ratio, Nonfasting 4.46 mg/dL NINF - 5.10 mg/dL [facility] Triglycerides, Nonfasting 75 mg/dL NINF - 150 mg/dL [facility] Comment on above: <150 mg/dL, Normal 150-199 mg/dL, Borderline high 200-499 mg/dL, High >499 mg/dL, Very high VLDL Cholesterol, Nonfasting 15 mg/dL NINF - 30 mg/dL [facility] No Panel Informationon 10-04 [facility] Urinalysis complete panel (U )on 10-05-2023 Bacteria LM.HPF (Urine sed) [#/Area] Negative Negative /HPF [facility] Bilirubin Ql (U) Negative Negative [facility] Clarity (Unsp spec) Clear Clear [facility] Color (U) Yellow Yellow [facility] Epithelial cells LM.HPF (Urine sed) [#/Area] None Seen /HPF [facility] Glucose Test strip (U) [Mass/Vol] Negative Negative [facility] Hemoglobin Ql (U) Negative Negative [facility] Hyaline casts (Urine sed) [#/Area] 1-3 /LPF Abnormal 0 /LPF [facility] Interpretation and review of laboratory results Abnormal [facility] Ketones Ql (U) Negative Negative [facility] Leukocyte esterase Test strip Ql (U) Negative Negative [facility] Nitrite Ql (U) Negative Negative [facility] pH (U) 5.5 [pH] NINF - 8.5 [facility] Protein (U) [Mass/Vol] Negative Negative [facility] RBC LM.HPF (Urine sed) [#/Area] 0-2 /HPF 0-2 /HPF [facility] Specific gravity (U) [Rel density] 1.020 1.005 - 1.030 [facility] Urobilinogen Ql (U) 0.2 EU/dL 0.2-1.0 EU/dL [facility] WBC LM.HPF (Urine sed) [#/Area] 0-5 /HPF 0-5 /HPF [facility] This test was rome main and its performance characteristics determined by [facility]'s [facility] [employer] [facility] Pathology and Laboratory Medicine [place] ([facility]). It has not been cleared or approved by the FDA. [facility] is regulated under CLIA as qualified to perform high-complexity testing. This test is used for clinical purposes. It should not be regarded as investigational or for research. [facility] XR Chest PA and Lateralon IMPRESSION: Persistent bilateral pleural effusions. A follow-up exam is recommended. Log Chain Worker: MORGAN Transcribe Date/Time: Sep 15 2023 9:09A Dictated by : TA VERGARA MD This examination was interpreted and the report reviewed and electronically signed by: TA VERGARA MD on Sep 15 2023 9:10AM [facility] DIVISION OF RADIOLOGY * * *Final [...] soft tissues: Unremarkable. DIVISION OF RADIOLOGY Provider, [facility] - 09/15/2023 * * *Final Report* * [...] pleural effusions. A follow-up exam is recommended. Log Chain Worker: MORGAN Transcribe Date/Time: Sep 15 2023 9:09A Dictated by : TA VERGARA MD This examination was interpreted and the report reviewed and electronically signed by: TA VERGARA MD on Sep 15 2023 9:10AM EST [facility] XR Chest PA and LateralOrder ed By: Ccf Provider on 09-15-2023 [facility] XR Chest PA and Lateralon Radiology Study observation (narrative) [facility] MR Thoracic spine WO and W c [...] crest and there are 5 lumbar-type vertebrae. Log Chain Worker: [facility] Transcribe Date/Time: Sep 10 2023 9:48A Dictated by : ROMERO ROCHA MD This examination was interpreted and the report reviewed and electronically signed by: ROMERO ROCHA MD on Sep 10 2023 10:00AM EST DIVISION OF RADIOLOGY * * *Final Report* * * DATE OF EXAM: Sep 10 2023 9:38AM [facility] 0326 - MRI THORACIC SPINE WO/W IVCON [...] T10-T11 facet joint. DIVISION OF RADIOLOGY Provider, [facility] - 09/10/2023 * * *Final Report* * * DATE OF EXAM: Sep 10 2023 9:38AM [facility] 0326 - MRI THORACIC SPINE WO/W IVCON [...] crest and there are 5 lumbar-type vertebrae. Log Chain Worker: [facility] Transcribe Date/Time: Sep 10 2023 9:48A Dictated by : ROMERO ROCHA MD This examination was interpreted and the report reviewed and electronically signed by: ROMERO ROCHA MD on Sep 10 2023 10:00AM EST [facility] Radiology Study observation (narrative) [facility] MR Thoracic spine WO and W c ontrast IVOrdered By: Ccf Provider on 09-10-2023 [facility] NM Biliary ducts and Gallbla dder Views for patency of biliary structures and ejection fraction W sincalide and W radionuclide Leonila 06-28-2023 [facility] ANES POSTPROC EVALon 024 ANES POSTPROC EVAL HNO ID: [id number] Author: CONG CHEW MD Service: Anesthesiology Author Type: Physician Type: Anesthesia Postprocedure Evaluation Filed: 06/05/2023 14:44 Note Text: POST ANESTHESIA EVALUATION NOTE : 1955 Procedure Summary Date: 06/05/23 Room / Location: [facility] Anesthesia Start: 1342 Anesthesia Stop: 1435 Procedure: [...] June 05, 2023 TIME: 2:44 PM CSN: [id number] [facility] ANES PRE-OPon 06-05-2023 ANES PRE-OP HNO ID: [id number] Author: CONG CHEW MD Service: Anesthesiology Author Type: Physician Type: Anesthesia Preprocedure Evaluation Filed: 06/05/2023 13:22 Note Text: ANESTHESIOLOGY DAY OF SURGERY NOTE : 1955 Procedure Information Date/Time: 06/05/23 1300 Scheduled providers: Amos Rangel MD Procedure: EGD - THERAPEUTIC, EUS, OR TUBE INTERVENTIONS Location: [facility] Estimated body mass index is 28.5 kg/m? as calculated from the following: Height as of this encounter: 175.3 cm (5' 9"). Weight as of this encounter: 87.5 kg (193 lb). Most recent hematocrit and potassium results: Hematocrit 42.2 02/13/2023 Potassium 4.0 02/13/2023 Relevant Problems CARDIO (+) Aortic valve stenosis (+) Coronary artery disease involving [place] coronary artery without angina pectoris (+) Essential [...] MIST) 0.65 % nasal spray Use 1 [place] in the nose as needed for cold/allergy [...] June 05, 2023 TIME: 1:21 PM CSN: [id number] [facility] EGD Study observation Narrat iveon 06-05-2023 [facility] HISTORY PHYSICALon HISTORY PHYSICAL HNO ID: [id number] Author: ARUNA MENDEZ APRN.CNP Service: Nursing Author [...] Esophageal Adenocarcinoma (Hcc) Coronary Artery Disease Involving [place] Coronary Artery Without Angina Pectoris [place] (Actinic Keratosis) Medicare Annual Wellness Visit, Subsequent Pleural Effusion Advance Directive Discussed With Patient Medication Management Prostate Disorder Decreased Sexual Desire Human Resources Trainer's 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 [facility] SURGICAL PATHOLOGYon 024 CASE REPORT [facility] Comment on above: Order Comment: Speci men Type: TISSUE SPECIMEN Ordering Facility: [facility] Address: [address] [place] [address] [place] [address] Result Comment: Surg ical Pathology Report Case: [id number] Authorizing Provider: Amos Rangel MD Collected: 06/05/2023 02:26 PM Ordering Location: [facility] Received: 06/06/2023 10:11 AM Pathologist: Angelica Hernandez MD Specimen: ESOPHAGOGASTRIC JUNCTION BIOPSY, @27 cm Performed By: #### S #### [facility] CLIA [id number] [address] [place] [address] FINAL DIAGNOSIS [facility] Comment on above: Order Comment: Speci men Type: TISSUE SPECIMEN Ordering Facility: [facility] Address: [address] [place] [address] Result Comment: A. E sophagogastric junction at 27 cm, biopsy: -- Fragments of squamous epithelium with no significant histopathologic abnormalities. -- Detached strips of columnar surface and glandular epithelium with no significant histopathologic abnormalities; fragmentation precludes further evaluation. Performed By: #### S #### [facility] CLIA [id number] [address] [place] [address] FINAL PERFORMING LAB Normal [facility] Comment on above: Order Comment: Speci men Type: TISSUE SPECIMEN Ordering Facility: [facility] Address: [address] [place] [address] Result Comment: Diag nostic interpretation performed at [facility], [address] [place] [address] CLIA# [id number] Senior Outside Sales Representative: Nikita Ventura M.D. Performed By: #### S #### [facility] CLIA [id number] [address] [place] [address] GROSS DESCRIPTION [facility] Comment on above: Order Comment: Speci men Type: TISSUE SPECIMEN Ordering Facility: [facility] Address: [address] [place] [address] Result Comment: A. E SOPHAGOGASTRIC JUNCTION BIOPSY Received in formalin labeled esophagogastric junction biopsy at 27 cm are multiple pieces of [place], soft tissue aggregating to 1.1 x 0.3 x 0.1 cm. Totally submitted in one cassette. Gross examination performed at [facility], [address] [place] [address] CLIA# [id number] [facility] June 06, 2023 12:37 PM Performed By: #### S #### [facility] CLIA [id number] [address] STATES OF [facility] Upper EUSon 06-05-2023 Upper EUS [facility] Gastrointestinal Endoscopy Patient Name: Jacob Landa Procedure Date: 06/05/2023 1:20 PM Date of : 1955 Admit Type: Outpatient Room: [place] [address] Gender: Male Note Status: Finalized Attending MD: Amos Rangel MD, [id number] Procedure: Upper EUS Indications: Abnormal abdominal PET [...] path results. Procedure Code(s): --- Professional --- 85277, Esophagogastroduodenoscopy , flexible, transoral; with endoscopic ultrasound examination limited to the esophagus, stomach or duodenum, and adjacent structures 46658, Esophagogastroduodenoscopy , flexible, transoral; with biopsy, single or multiple --- Technical --- 81364, Esophagogastroduodenoscopy , flexible, transoral; with endoscopic ultrasound examination limited to the esophagus, stomach or duodenum, and adjacent structures 47963, Esophagogastroduodenoscopy , flexible, transoral; with biopsy, single or multiple Diagnosis Code(s): --- Professional --- Z98.890, Other specified postprocedural states R93.5, Abnormal findings on diagnostic imaging of other abdominal regions, including retroperitoneum --- Technical --- Z98.890, Other specified postprocedural states R93.5, Abnormal findings on diagnostic imaging of other abdominal regions, including retroperitoneum CPT copyright 2020 [place] [employer]. All rights reserved. The codes documented in this report are preliminary and upon director cardiovascular review may be revised to meet current compliance requirements. Attending Participation: I personally performed the entire procedure. Scope In: 1:48:55 PM Scope Out: 2:24:20 PM MD Amos Oneill MD 06/05/2023 2:35:39 PM This repor (more content not included)... [facility] CNPNon 06-04-2023 CNPN Telephone (AGGASTACC ) -- SYEDAJACOB ([id number]) 1955 M Date Time Provider Department 06/04/23 [...] EUS, OR TUBE INTERVENTIONS [GI2] Order #: [id number] FUTURE Prescriptions as of 06/04/2023 - pantoprazole DR (PROTONIX) 40 mg tablet Take 1 tablet by mouth two times a day. - nortriptyline (PAMELOR) 10 mg capsule Take 1 capsule by mouth daily at bedtime. - sodium chloride (SALINE MIST) 0.65 % nasal spray Use 1 [place] in the nose as needed for cold/allergy [...] (HCC) [C15.9] 08/09/2020 Coronary artery disease involving [place] crisostomo* On tube feeding diet [Z78.9] 08/14/2020 01/13/2021 [place] (actinic keratosis) [L57.0] 09/07/2020 Medicare annual wellness visit, subsequent [Z00*01/13/2021 Pleural effusion [J90] 03/11/2021 Advance directive discussed with patient [Z71.8*02/09/2022 Medication management [Z79.899] 02/09/2022 Prostate disorder [N42.9] 02/09/2022 Decreased sexual desire [F52.0] 02/09/2022 Human Resources Trainer's nodules [L28.1] 03/30/2023 Primary insomnia [F51.01] 03/30/2023 Encounter Status:Closed by CHRISTIANO TAYLOR on 06/04/23 [facility] ANES POSTPROC EVALon 024 ANES POSTPROC EVAL HNO ID: [id number] Author: LARRY ROONEY MD Service: Anesthesiology Author Type: Anesthesiologist Type: Anesthesia Postprocedure Evaluation Filed: 05/07/2023 09:04 Note Text: POST ANESTHESIA EVALUATION NOTE : 1955 Procedure Summary Date: 05/07/23 Room / Location: [facility] Anesthesia Start: 08 Anesthesia Stop: 838 Procedure: [...] May 07, 2023 TIME: 9:04 AM CSN: [id number] [facility] ANES PRE-OPon 05-07-2023 ANES PRE-OP HNO ID: [id number] Author: LARRY ROONEY MD Service: Anesthesiology Author Type: Anesthesiologist Type: Anesthesia Preprocedure Evaluation Filed: 05/07/2023 07:39 Note Text: ANESTHESIOLOGY DAY OF SURGERY NOTE : 1955 Procedure Information Date/Time: 05/07/23 0800 Scheduled providers: Jurgen Bocanegra MD Procedure: EGD - THERAPEUTIC, EUS, OR TUBE INTERVENTIONS Location: [facility] Estimated body mass index is 29.65 kg/m? as calculated from the following: Height as of 05/01/23: 172.7 cm (5' 8"). Weight as of 05/01/23: 88.5 kg (195 lb). Most recent hematocrit and potassium results: Hematocrit 42.2 02/13/2023 Potassium 4.0 02/13/2023 Relevant Problems CARDIO (+) Aortic valve stenosis (+) Coronary artery disease involving [place] coronary artery without angina pectoris (+) Essential [...] MIST) 0.65 % nasal spray Use 1 [place] in the nose as needed for cold/allergy [...] May 07, 2023 TIME: 7:39 AM CSN: [id number] [facility] HISTORY PHYSICALon HISTORY PHYSICAL HNO ID: [id number] Author: JORDANA KINGSTON APRN.WILDLIFE CONSERVATION OFFICER Service: Anesthesiology Author Type: Nurse Practitioner Type: H&P Filed: 05/07/2023 07:05 Note Text: HANDP completed 04/25/[address] [facility] SURGICAL PATHOLOGYon [address] [facility] Comment on above: Order Comment: Ehsan nunes Type: TISSUE SPECIMENOrdering Facility: [facility] Address: [address] [place] [address] Result Comment: Surg ica Pathology Report Case: [id number] Authorizing Provider: Jurgen Bocanegra MD Collected: 05/07/2023 08:24 AM Ordering Location: [facility] Received: 05/08/2023 12:48 PM Pathologist: José Miguel Eugene MD Specimen: ESOPHAGOGASTRIC JUNCTION RESECTION Performed By: #### S ####[facility] [id number] [place] [address] [place] FINAL DIAGNOSIS Normal [facility] Comment on above: Order Comment: Ehsan nunes Type: TISSUE SPECIMENOrdering Facility: [facility] Address: [address] [place] [address] Result Comment: A. E sophagogastric junction, biopsy: - Fragment of gastric-type glandular mucosa with mild chronic inflammation and separate fragments of esophageal squamous mucosa with no histopathologic abnormality. - There is no evidence of residual/recurrent adenocarcinoma, intestinal metaplasia or dysplasia. Performed By: #### S ####[facility] LABORATORYCLIA [id number] [address] FINAL PERFORMING LAB Normal [facility] Comment on above: Order Comment: Speci men Type: TISSUE SPECIMENOrdering Facility: [facility] Address: [address] [place] [address] Result Comment: Diag nostic interpretation performed at [facility], [address] [place] [address] CLIA# [id number] Senior Outside Sales Representative: Nikita Ventura M.D. Performed By: #### S ####[facility] LABORATORYCLIA [id number] [address] GROSS DESCRIPTION Normal [facility] Comment on above: Order Comment: Speci men Type: TISSUE SPECIMENOrdering Facility: [facility] Address: [address] [place] [address] Result Comment: A. E SOPHAGOGASTRIC JUNCTION RESECTION Received in formalin labeled "esophagogastric junction" are 3 irregular fitzgerald soft tissue fragments aggregating to 0.3 x 0.3 x 0.2 cm. The specimen is submitted entirely in A1. Gross examination performed at [facility], [address] [place] [address] CLIA#[id number] OLS May 08, 2023 2:41 PM Performed By: #### S ####[facility] LABORATORYCLIA [id number] [address] OF [place] Upper GI endoscopyon 024 Upper GI endoscopy [facility] Gastrointestinal Endoscopy Patient Name: Jacob Landa Procedure Date: 05/07/2023 7:30 AM Date of : 1955 Admit Type: Outpatient Room: [facility] 21 Gender: Male Note Status: Finalized Attending MD: Jurgen Bocanegra MD, [id number] Procedure: Upper GI endoscopy Indications: Diagnostic procedure [...] antiplatelet agents. Procedure Code(s): --- Professional --- 12375, Esophagogastroduodenoscopy , flexible, transoral; with biopsy, single or multiple --- Technical --- 89543, Esophagogastroduodenoscopy , flexible, transoral; with biopsy, single or multiple CPT copyright 2020 [employer]. All rights reserved. The codes documented in this report are preliminary and upon director cardiovascular review may be revised to meet current compliance requirements. Attending Participation: I personally performed the entire procedure. Scope In: 8:18:27 AM Scope Out: 8:29:15 AM MD Jurgen Bennett MD 05/07/2023 8:42:29 AM This report has been signed electronically by Jurgen Bocanegra MD Number of Addenda: 0 Note Initiated On: 05/07/2023 7:30 AM Normal [facility] CNOVon 04-25-2023 CNOV Office Visit (AGGENS 3) -- JACOB LANDA ([id number]) 1955 M Date Time Provider Department 04/25/23 2:00 PM JURGEN [email or web address] During your visit today, we recorded the following information about you: Pulse Blood pressure Weight Height 91/minute 122/81 88.5 kg 1.727 m Jurgen Bocanegra MD 04/26/2023 4:22 PM Signed Jurgen Bocanegra M.D. Surgical Oncology 1 [facility], [facility] [address] [address] SUBJECTIVE HPI Jacob Landa is a 68 year old male presenting for evaluation of esophageal cancer. Patient presented with dysphagia which prompted an EGD in early 2020. This demonstrated a distal esophageal adenocarcinoma. His workup did not demonstrate any metastatic disease and he was felt to have T3 N1 cancer. This prompted chemoradiation which completed in June 23, 2020. He then underwent an [place] esophagectomy in August 2020 for which [...] of right wrist Coronary artery disease involving [place] coronary artery without angina pectoris Seeing Dr. 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 Normal [facility] CNPNon 04-18-2023 CNPN Telephone (IRRFV) -- JACOB LANDA ([id number]) 1955 M Date Time Provider Department 04/18/23 [...] MIST) 0.65 % nasal spray Use 1 [place] in the nose as needed for cold/allergy [...] (HCC) [C15.9] 08/09/2020 Coronary artery disease involving p[place] crisostomo* On tube feeding diet [Z78.9] 08/14/2020 01/13/2021 AK (actinic keratosis) [L57.0] 09/07/2020 Medicare annual wellness visit, subsequent [Z00*01/13/2021 Pleural effusion [J90] 03/11/2021 Advance directive discussed with patient [Z71.8*02/09/2022 Medication management [Z79.899] 02/09/2022 Prostate disorder [N42.9] 02/09/2022 Decreased sexual desire [F52.0] 02/09/2022 Human Resources Trainer's nodules [L28.1] 03/30/2023 Primary insomnia [F51.01] 03/30/2023 Encounter Status:Closed by JESSICA MARTINES on 04/18/23 [facility] CBC W Auto Differential pane l (Bld)on 02-13-2023 Basophils (Bld) [#/Vol] 0.04 10*3/uL <0.11 k/uL [facility] Basophils/100 WBC (Bld) 0.9 % [facility] Differential cell count method Nom (Bld) Auto [facility] Eosinophils (Bld) [#/Vol] 0.17 10*3/uL <0.46 k/uL [facility] Eosinophils/100 WBC (Bld) 3.7 % [facility] Erythrocyte distribution width (RBC) [Ratio] 14.6 % 11.5 - 15.0 % [facility] Hematocrit (Bld) [Volume fraction] 42.2 % 39.0 - 51.0 % [facility] Hemoglobin (Bld) [Mass/Vol] 13.6 g/dL 13.0 - 17.0 g/dL [facility] Immature granulocytes (Bld) [#/Vol] <0.10 k/uL [facility] Immature granulocytes/100 WBC (Bld) 0.4 % [facility] Lymphocytes (Bld) [#/Vol] 0.77 10*3/uL Low 1.00 - 4.00 k/uL [facility] Lymphocytes/100 WBC (Bld) 16.7 % [facility] MCH (RBC) [Entitic mass] 27.2 pg 26.0 - 34.0 pg [facility] MCHC (RBC) [Mass/Vol] 32.2 g/dL 30.5 - 36.0 g/dL [facility] MCV (RBC) [Entitic vol] 84.4 fL 80.0 - 100.0 fL [facility] Monocytes (Bld) [#/Vol] 0.40 10*3/uL <0.87 k/uL [facility] Monocytes/100 WBC (Bld) 8.7 % [facility] Neutrophils (Bld) [#/Vol] 3.22 10*3/uL 1.45 - 7.50 k/uL [facility] Neutrophils/100 WBC (Bld) 69.6 % [facility] Nucleated RBC (Bld) [#/Vol] <0.01 k/uL [facility] Nucleated RBC/100 WBC (Bld) [Ratio] 0.0 /100 WBC [facility] Platelet mean volume (Bld) [Entitic vol] 9.7 fL 9.0 - 12.7 fL [facility] Platelets (Bld) [#/Vol] 158 10*3/uL 150 - 400 k/uL [facility] RBC (Bld) [#/Vol] 5.00 10*6/uL 4.20 - 6.0 0 m/uL [facility] WBC (Bld) [#/Vol] 4.62 10*3/uL 3.70 - 11. 00 k/uL [facility] Comprehensive metabolic 2000 panelon 02-13-2023 Albumin [Mass/Vol] 3.9 g/dL 3.9 - 4.9 g/dL [facility] ALP [Catalytic activity/Vol] 84 U/L 38 - 113 U/L [facility] ALT [Catalytic activity/Vol] 13 U/L 10 - 54 U/L [facility] Anion gap [Moles/Vol] 7 mmol/L Low 9 - 18 mmol/L [facility] AST [Catalytic activity/Vol] 14 U/L 14 - 40 U/L [facility] Bilirubin [Mass/Vol] 0.6 mg/dL 0.2 - 1 .3 mg/dL [facility] Calcium [Mass/Vol] 9.0 mg/dL 8.5 - 10. 2 mg/dL [facility] Chloride [Moles/Vol] 104 mmol/L 97 - 10 5 mmol/L [facility] CO2 [Moles/Vol] 27 mmol/L 22 - 30 mmol/L [facility] Creatinine [Mass/Vol] 0.95 mg/dL 0.73 - 1.22 mg/dL [facility] Estimated Glomerular Filtration Rate 87 mL/min/1.73m >=60 mL/min/1.73m [facility] Glucose [Mass/Vol] 94 mg/dL 74 - 99 mg/dL [facility] Potassium [Moles/Vol] 4.0 mmol/L 3.7 - 5.1 mmol/L [facility] Protein [Mass/Vol] 6.5 g/dL 6.3 - 8.0 g/dL [facility] Sodium [Moles/Vol] 138 mmol/L 136 - 144 mmol/L [facility] Urea nitrogen [Mass/Vol] 12 mg/dL 9 - 24 mg/dL [facility] Basophil percentageOrdered B y: Angel Whitney on 11-15-2022 Bilirubin [Mass/Vol] 0.70 mg/dL 0.20-1.00 [facility] Comment on above: For patients on eltr ombopag therapy, use of Dimension [place] TBIL is not recommended. Cholesterol [Mass/Vol] 174 mg/dL <200 [facility] Comment on above: <200 mg/dL Desirable 200-240 mg/dL Borderline >240 mg/dL High Risk Protein [Mass/Vol] 6.9 g/dL 6.4-8.2 [facility] Triglyceride [Mass/Vol] 85 mg/dL <199 [facility] Comment on above: The drugs N-Acetylcy steine and Metamizole may falsely depress this assay.Serum Triglycerides Reference Interval Normal <150 mg/dL Borderline high 150 - 199 mg/dL High 200 - 499 mg/dL Very High > or = 500 mg/dL Direct bilirubinOrdered By: Angel Whitney on 11-15-2022 Bilirubin.direct [Mass/Vol] 0.18 mg/dL 0.00-0.30 [facility] Laboratory - Chemistry and C hemistry - challengeOrdered By: Angel Whitney on 11-15-2022 ALP [Catalytic activity/Vol] 89 U/L 45-117 [facility] ALT [Catalytic activity/Vol] 21 U/L 16-61 [facility] Globulin (S) [Mass/Vol] 3.6 g/dL 2.2-4.2 [facility] Serum or plasma albumin alisha urement (mass/volume)Ordered By: Angel Whitney on 11-15-2022 Albumin [Mass/Vol] 3.3 g/dL 3.2-5.0 [facility] Serum or plasma cholesterol in HDL measurement (mass/volume)Ordered By: Angel Whitney on 11-15-2022 Cholesterol in HDL [Mass/Vol] 53 mg/dL >40 [facility] Comment on above: The drugs N-Acetylcy steine and Metamizole may falsely depress this assay. Reference Range HDL <40 mg/dL Low HDL Cholesterol HDL >or= 60 mg/dL High HDL Cholesterol Serum or plasma cholesterol in VLDL measurement (mass/volume)Ordered By: Angel Whitney on 11-15-2022 Cholesterol in VLDL [Mass/Vol] 17 mg/dL 5-40 [facility] Serum or plasma low density lipoprotein (LDL) cholesterol measurement (mass/volume)Ordered By: Angel Whitney on 11-15-2022 Cholesterol in LDL [Mass/Vol] 104 mg/dL 0-130 [facility] Thin prep Papanicolaou smear with manual screeningOrdered By: Angel Whitney on 11-15-2022 Thin prep Papanicolaou smear with manual screening 15 U/L 15-37 [facility] EGD DIAGNOSTICon 08-02-2022 [facility] Basophil percentageOrdered B y: Dr. Danielle on 07-24-2022 Chloride [Moles/Vol] 108 mmol/L 98-107 [facility] Glucose [Mass/Vol] 97 mg/dL 74-106 [facility] Potassium [Moles/Vol] 3.9 mmol/L 3.5-5.1 [facility] Sodium [Moles/Vol] 138 mmol/L 136-145 [facility] Laboratory - Chemistry and C hemistry - challengeOrdered By: Dr. Danielle on 07-24-2022 CO2 [Moles/Vol] 27.0 mmol/L 21.0-32.0 [facility] Urea nitrogen/Creatinine [Mass ratio] 14.0 mg/mg 10-20 [facility] No Panel InformationOrdered By: Dr. Danielle on 07-24-2022 Estimated GFR (MDRD) Amer 96 mL/min >60 [facility] Comment on above: GFR Calc Estimated GFR (MDRD) Non-Af Amer 79 mL/min >60 [facility] Comment on above: Non- GFR Calc Prostate Specific Antigen Total 2.19 ng/mL 0.0-4.0 [facility] Comment on above: This test was perfor med using the TPSA assay method for [email or web address] chemistry system. Values obtained with differentassay methods cannot be used interchangably.When changing PSA assays in the course of monitoring apatient, additional sequential testing should be carriedout to confirm baseline values. Serum or plasma calcium alisha urement (mass/volume)Ordered By: Dr. Danielle on 07-24-2022 Calcium [Mass/Vol] 8.7 mg/dL 8.5-10.1 [facility] Serum or plasma creatinine m easurement (mass/volume)Ordered By: Dr. Danielle on 07-24-2022 Creatinine [Mass/Vol] 1.00 mg/dL 0.70-1.30 [facility] Comment on above: The validity of the calculated GFR & GFRAA in patients over 70 years has not been determined. Clinical correlation is essential. Serum or plasma urea nitroge n measurement (mass/volume)Ordered By: Dr. Danielle on 07-24-2022 Urea nitrogen [Mass/Vol] 14 mg/dL 7-18 [facility] Thin prep Papanicolaou smear with manual screeningOrdered By: Dr. Danielle on 07-24-2022 Thin prep Papanicolaou smear with manual screening 3 5-15 [facility] Absolute lymphocyte countOrd ered By: ED PROVIDER on 06-23-2022 Lymphocytes Auto (Unsp spec) [#/Vol] 0.55 10*3/uL 0.83-4.51 [facility] Basophil percentageOrdered B y: ED PROVIDER on 06-23-2022 Basophil percentage 0-5 SEEN /hpf 0-5 [facility] Basophils/100 WBC (Bld) 0.3 % 0-1 [facility] Chloride [Moles/Vol] 106 mmol/L 98-107 [facility] Eosinophils/100 WBC (Bld) 0.4 % 0-5 [facility] Glucose [Mass/Vol] 115 mg/dL 74-106 [facility] Comment on above: Fasting Glucose resu lt from 100 to 125 mg/dL suggests IMPAIRED HOMEOSTASIS per A.D.A. criteria. Neutrophils (Bld) [#/Vol] 8.1 10*3/uL 2.0-7.7 [facility] Neutrophils/100 WBC (Bld) 85.0 % 47-70 [facility] Potassium [Moles/Vol] 4.6 mmol/L 3.5-5.1 [facility] Sodium [Moles/Vol] 140 mmol/L 136-145 [facility] WBC (Bld) [#/Vol] 9.5 10*3/uL 4.4-11.0 [facility] Basophil percentageOrdered B y: Dr. Roberts on 06-23-2022 Bilirubin [Mass/Vol] 1.10 mg/dL 0.20-1.00 [facility] Comment on above: For patients on eltr ombopag therapy, use of Dimension [place] TBIL is not recommended. Protein [Mass/Vol] 7.2 g/dL 6.4-8.2 [facility] Bilirubin Test strip Ql (U)O rdered By: ED PROVIDER on 06-23-2022 Bilirubin Ql (U) Negative Negative [facility] Blood erythrocytes count (nu mber/volume)Ordered By: ED PROVIDER on 06-23-2022 RBC (Bld) [#/Vol] 5.00 10*6/uL 4.6-6.2 [facility] Blood hemoglobin measurement (mass/volume)Ordered By: ED PROVIDER on 06-23-2022 Hemoglobin (Bld) [Mass/Vol] 13.4 g/dL 13.0-16.5 [facility] Blood lymphocytes/100 leukoc ytesOrdered By: ED PROVIDER on 06-23-2022 Lymphocytes/100 WBC (Bld) 5.8 % 19-41 [facility] Blood manual differential co mment interpretation (narrative result)Ordered By: ED PROVIDER on 06-23-2022 Manual differential comment Servando (Bld) [Interp] SCANNED [facility] Comment on above: LYMPHOPENIA Blood monocytes/100 leukocyt esOrdered By: ED PROVIDER on 06-23-2022 Monocytes/100 WBC (Bld) 8.1 % 0-10 [facility] Blood platelet mean volumeOr dered By: ED PROVIDER on 06-23-2022 Platelet mean volume (Bld) [Entitic vol] 9.8 fL 6.2-12.0 [facility] Determination of erythrocyte mean corpuscular volume (MCV)Ordered By: ED PROVIDER on 06-23-2022 MCV (RBC) [Entitic vol] 85.2 fL 80-94 [facility] Direct bilirubinOrdered By: Dr. Roberts on 06-23-2022 Bilirubin.direct [Mass/Vol] 0.28 mg/dL 0.00-0.30 [facility] Hematocrit Auto (Bld) [Volum e fraction]Ordered By: ED PROVIDER on 06-23-2022 Hematocrit (Bld) [Volume fraction] 42.6 % 40-54 [facility] Ketones Test strip Ql (U)Ord ered By: ED PROVIDER on 06-23-2022 Ketones Ql (U) 5 mg/dl Negative [facility] Laboratory - Chemistry and C hemistry - challengeOrdered By: Dr. Roberts on 06-23-2022 ALP [Catalytic activity/Vol] 113 U/L 45-117 [facility] ALT [Catalytic activity/Vol] 36 U/L 16-61 [facility] Globulin (S) [Mass/Vol] 3.6 g/dL 2.2-4.2 [facility] Lipase [Catalytic activity/Vol] 63 U/L 73-393 [facility] Laboratory - Chemistry and C hemistry - challengeOrdered By: ED PROVIDER on 06-23-2022 CO2 [Moles/Vol] 28.0 mmol/L 21.0-32.0 [facility] Urea nitrogen/Creatinine [Mass ratio] 10.7 mg/mg 10-20 [facility] Laboratory - Hematology and Cell countsOrdered By: ED PROVIDER on 06-23-2022 Erythrocyte distribution width (RBC) [Entitic vol] 44.3 fL 35.1-43.9 [facility] Erythrocyte distribution width (RBC) [Ratio] 14.4 % 11.6-14.6 [facility] Immature granulocytes/100 WBC (Bld) 0.400 % 0.0-0.9 [facility] Comment on above: IG% - Immature Granu locytes (promyelocytes, myelocytes and metamyelocytes) > 1% indicates that a LEFT SHIFT is Present. MCH (RBC) [Entitic mass] 26.8 pg 27.0-32.0 [facility] Nucleated RBC/100 WBC (Bld) [Ratio] 0 % 0-5 [facility] MCHC Auto (RBC) [Mass/Vol]Or dered By: ED PROVIDER on 06-23-2022 MCHC (RBC) [Mass/Vol] 31.5 g/dL 32-36 [facility] Mucus LM Ql (Urine sed)Order ed By: ED PROVIDER on 06-23-2022 Mucus Ql (Urine sed) 1+ /hpf [facility] Nitrite Test strip Ql (U)Ord ered By: ED PROVIDER on 06-23-2022 Nitrite Ql (U) Negative Negative [facility] No Panel InformationOrdered By: ED PROVIDER on 06-23-2022 Estimated Creatinine Clearance Calc 43.20 ml/min [facility] Estimated GFR (MDRD) Amer 52 mL/min >60 [facility] Comment on above: GFR Calc Estimated GFR (MDRD) Non-Af Amer 43 mL/min >60 [facility] Comment on above: Non- GFR Calc Platelets bldOrdered By: ED PROVIDER on 06-23-2022 Platelets (Bld) [#/Vol] 173 10*3/uL 150-450 [facility] Protein Test strip Ql (U)Ord ered By: ED PROVIDER on 06-23-2022 Protein Ql (U) 15 mg/dl Negative [facility] Serum or plasma albumin alisha urement (mass/volume)Ordered By: Dr. Roberts on 06-23-2022 Albumin [Mass/Vol] 3.6 g/dL 3.2-5.0 [facility] Serum or plasma calcium alisha urement (mass/volume)Ordered By: ED PROVIDER on 06-23-2022 Calcium [Mass/Vol] 9.5 mg/dL 8.5-10.1 [facility] Serum or plasma creatinine m easurement (mass/volume)Ordered By: ED PROVIDER on 06-23-2022 Creatinine [Mass/Vol] 1.69 mg/dL 0.70-1.30 [facility] Comment on above: The validity of the calculated GFR & GFRAA in patients over 70 years has not been determined. Clinical correlation is essential. Serum or plasma urea nitroge n measurement (mass/volume)Ordered By: ED PROVIDER on 06-23-2022 Urea nitrogen [Mass/Vol] 18 mg/dL 7-18 [facility] Squamous epithelial cells de tection in urine sediment by light microscopyOrdered By: ED PROVIDER on 06-23-2022 Epithelial cells.squamous LM Ql (Urine sed) 0 SEEN /hpf 0-5 [facility] Thin prep Papanicolaou smear with manual screeningOrdered By: Dr. Roberts on 06-23-2022 Thin prep Papanicolaou smear with manual screening 19 U/L 15-37 [facility] Thin prep Papanicolaou smear with manual screeningOrdered By: ED PROVIDER on 06-23-2022 Thin prep Papanicolaou smear with manual screening 6 5-15 [facility] Urine blood detectionOrdered By: ED PROVIDER on 06-23-2022 RBC Ql (U) 25 /ul Negative [facility] RBC Ql (U) 0 SEEN /hpf 0-5 [facility] Urine clarityOrdered By: ED PROVIDER on 06-23-2022 Clarity (U) Clear Clear [facility] Urine color determinationOrd ered By: ED PROVIDER on 06-23-2022 Color (U) Yellow Yellow [facility] Urine glucose detectionOrder ed By: ED PROVIDER on 06-23-2022 Glucose Ql (U) Normal mg/dl Normal [facility] Urine leukocyte esterase det ection by dipstickOrdered By: ED PROVIDER on 06-23-2022 Leukocyte esterase Test strip Ql (U) 25 /ul Negative [facility] Urine pHOrdered By: ED PROVI TRENA on 06-23-2022 pH (U) 5.0 [pH] 5.0 - 8.0 [facility] Urine sediment bacteria coun t by microscopy (number/high power field)Ordered By: ED PROVIDER on 06-23-2022 Bacteria LM.HPF (Urine sed) [#/Area] 0 /[HPF] None Seen [facility] Urine specific gravity measu rementOrdered By: ED PROVIDER on 06-23-2022 Specific gravity (U) [Rel density] 1.025 1.002-1.030 [facility] Urobilinogen Auto test strip Ql (U)Ordered By: ED PROVIDER on 06-23-2022 Urobilinogen Ql (U) Normal mg/dl Normal [facility] XR RIBS/CHEST 3V AP RIB/OBLS /CXR RIGHTon 06-09-2022 [facility] XR Ribs - right Views and Ch est PAon 06-09-2022 IMPRESSION: 1. No acute fracture 2. Bilateral pleural effusions. Left basilar atelectasis. Log Chain Worker: MORGAN Transcribe Date/Time: Jun 09 2022 3:18P Dictated by : JORDANA SEALS MD This examination was interpreted and the report reviewed and electronically signed by: JORDANA SEALS MD on Jun 09 2022 3:22PM [facility] DIVISION OF RADIOLOGY * * *Final [...] No acute fracture. DIVISION OF RADIOLOGY Provider, [facility] - 06/09/2022 * * *Final Report* * [...] 2. Bilateral pleural effusions. Left basilar atelectasis. Log Chain Worker: PSCB Transcribe Date/Time: Jun 09 2022 3:18P Dictated by : JORDANA SEALS MD This examination was interpreted and the report reviewed and electronically signed by: JORDANA SEALS MD on Jun 09 2022 3:22PM EST [facility] Radiology Study observation (narrative) [facility] XR Ribs - right Views and Ch est PAOrdered By: [facility]cf Provider on 06-09-2022 [facility] No Panel Informationon 05-22 [facility] No Panel Informationon 02-20 [facility] EGD DIAGNOSTICon 11-09-2021 [facility] No Panel Informationon 10-03 [facility] EGD DIAGNOSTICon 09-07-2021 [facility] XR ABDOMEN APon 08-25-2020 XR ABDOMEN AP ORIGINAL XR ABDOMEN AP CLINICAL STATEMENT: j tube placement, please push contrast through j tube. COMPARISON: None FINDINGS: A mineral engineer was obtained demonstrating no evidence of obstruction. [...] Date: 08/25/2020 6:16:37 PM Ordering Provider:Momo Ortiz [facility] ([place]) CNOVon 07-14-2020 CNOV Office Visit (THOR ) -- JACOB LANDA ([id number]) 1955 M Date Time Provider Department 07/14/20 [...] a cardiac risk assessment from his primary utilization specialist and will then plan to see him back following completion of therapy for restaging and surgical planning. ? Plan: 1) Cards clearance from primary utilization specialist 2) RTC following completion of induction therapy [...] visit with restaging testing on July 09 [facility] or July [address] [place] [address] Chest/Abd/Pelvis Anticipated OR Date: 08/09/2020 MAIN [facility] 08/06/2020 MAIN COVID 08/06/2020 MAIN ? Alisa Estrada RN ? Stress Test 06/25/2020 Conclusion: Normal exercise myocardial perfusion stress test at a moderate workload with no evidence of ischemia. Good functional capacity. No angina noted. ? OPD note 06/25/2020 Hem/Onc ? ? Referring Provider: RENETTA RADFORD [[id number]] Allergies As of Date: 07/14/2020 Noted Allergy [...] W/O GANGRENE (more content not included)... Normal [facility] CT ABD/PEL W IVCONon 021 CT [...] chest CT performed will be reported separately. Director [employer] (topogram) images: No additional findings. IMPRESSION: Stable exam. No metastatic disease in the abdomen or pelvis. Transcribed Using Voice Recognition Transcribe Date/Time: Jul 14 2020 3:58P Dictated by: BENITO ALBRIGHT MD This examination was interpreted and the report reviewed and electronically signed by: BENITO ALBRIGHT MD on Jul 14 2020 4:07PM EST [id number] [facility] CT CHEST W IVCONon CT CHEST [...] No abnormality in the imaged upper abdomen. [employer] (topogram) images: No additional findings. IMPRESSION: Mildly [...] Jul 15 2020 2:24PM EST [id number] Normal [facility] Echo 2D Doppler Coloron 11-2 TRANSTHORACIC ECHOCARDIOGRAM PATIENT: Jacob Landa STUDY DATE: 03/03/2020 : 1955 AGE: 64 HT/WT: 175.3 cm (69 118.8 kg in) (261.4 lb) GENDER: M BP: 108 / 60 LOCATION: [place] [address] [address] STATUS: *ORDERING PHYSICIAN: * 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 *READING PHYSICIAN: * Steve Washington MD, *MANAGER CORE: * Cory Masterson FACC [facility] INDICATIONS: S/p TAVR (Z95.2). CONCLUSIONS [...] range. Electronically signed by Steve Washington MD, [facility] 03/03/2020 14:59 Prior Signatures: [facility]- NEEL [facility] Incoming Cardiology Results From UserVoice/Pete - 03/03/2020 2:59 PM EST TRANSTHORACIC ECHOCARDIOGRAM PATIENT: Jacob Landa STUDY DATE: 03/03/2020 : 1955 AGE: 64 HT/WT: 175.3 cm (69 118.8 kg in) (261.4 lb) GENDER: M BP: 108 / 60 LOCATION: [place] [address] [address] STATUS: *ORDERING PHYSICIAN: * 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 *READING PHYSICIAN: * Steve Washington MD, *MANAGER CORE: * AlejaMegnery [facility] [address] INDICATIONS: S/p TAVR (Z95.2). CONCLUSIONS SUMMARY: [...] range. Electronically signed by Steve Washington MD, [facility] 03/03/2020 14:59 Prior Signatures: [facility] Echo Complete w/wo Contrasto n 03-03-2020 Echo Complete w/wo Contrast Patient Name: JACOB LANDA Ultrasound Exam Date/Time 03/03/2020 13:45:46 EST Exam Echo Complete w/wo Contrast Ordering Physician CORRINE HARDING, VERN Accession Number [id number] Reason For Exam one yr post TAVR Report TRANSTHORACIC ECHOCARDIOGRAM PATIENT: Jacob Landa STUDY DATE: 03/03/2020 : 1955 AGE: 64 HT/WT: 175.3 cm (69 118.8 kg in) (261.4 lb) GENDER: M BP: 108 / 60 LOCATION: [place] [address] [address] STATUS: *ORDERING PHYSICIAN: * 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 *READING PHYSICIAN: * Steve Washington MD, *MANAGER CORE: * Cory Masterson [facility] INDICATIONS: S/p TAVR (Z95.2). CONCLUSIONS SUMMARY: 1. [...] Signed by: MD. AMMON, STEVE GOODEN Normal [facility] Basic Metabolic Panelon Anion gap [Moles/Vol] 7 Normal [facility] Comment on above: Performed By: #### H MCKINLEY JAIN3 #### [facility] [address], [place] Calcium [Mass/Vol] 9.6 mg/dL Normal 8.4-10.4 [facility] Comment on above: Performed By: #### H MCKINLEY JAIN3 #### [facility] [address], [place] CO2 [Moles/Vol] 29 mmol/L Normal 22-30 [facility] Comment on above: Performed By: #### H MCKINLEY JAIN3 #### [facility] [address], [place] Glucose [Mass/Vol] 93 mg/dL Normal 70-100 [facility] Comment on above: Performed By: #### H SUSY BMP3 #### [facility] [address], [place] Urea nitrogen [Mass/Vol] 18 mg/dL Normal 7-20 [facility] Comment on above: Performed By: #### H SUSY BMP3 #### [place] [address] [address], [place] Creatinine [Mass/Vol] 1.23 mg/dL Normal 0.52-1.25 [facility] Comment on above: Performed By: #### H SUSY BMP3 #### [place] [address] [address], [place] GFR/1.73 sq M predicted among blacks MDRD (S/P/Bld) [Vol rate/Area] mL/min/{1.73_m2} Normal >60 [facility] Comment on above: Performed By: #### H SUSY BMP3 #### [place] [address] [address], [place] GFR/1.73 sq M predicted among non-blacks MDRD (S/P/Bld) [Vol rate/Area] 59.0 mL/min/{1.73_m2} Normal >60 [facility] Comment on above: Result Comment: Sour ce- MDRD equation with creatinine calibration to IDMS(NKDEP) eGFR not recommended for drug dose adjustment Performed By: #### H SUSY BMP3 #### [place] [address] [address], [place] Potassium [Moles/Vol] 4.5 mmol/L Normal 3.5-5.1 [facility] Comment on above: Performed By: #### H SUSY BMP3 #### [place] [address] [address], [place] Sodium [Moles/Vol] 138 mmol/L Normal 135-145 [facility] Comment on above: Performed By: #### H SUSY BMP3 #### [place] [address] [address], [place] Chloride [Moles/Vol] 102 mmol/L Normal 98-107 [facility] [employer] Comment on above: Performed By: #### H MCKINLEY JAIN3 #### [address] [address] Basic Metabolic PanelOrdered By: 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 on 04-16-2019 Anion gap [Moles/Vol] 7 mmol/L [facility] Work Phone: [phone] Calcium [Mass/Vol] 9.6 mg/dL 8.4 - 10. 4 mg/dL [facility] Work Phone: [phone] Chloride [Moles/Vol] 102 mmol/L 98 - 10 7 mmol/L [facility] Work Phone: [phone] CO2 [Moles/Vol] 29 mmol/L 22 - 30 mmol/L [facility] Work Phone: [phone] Creatinine [Mass/Vol] 1.23 mg/dL 0.52 - 1.25 mg/dL [facility] Work Phone: [phone] EGFR IF NonAfrican Ivorian 59.0 mL/min >60 [facility] Work Phone: [phone] Comment on above: Source- MDRD equatio n with creatinine calibration to IDMS(NKDEP) eGFR not recommended for drug dose adjustment GFR/1.73 sq M.predicted among blacks MDRD (S/P/Bld) [Vol rate/Area] mL/min/{1.73_m2} >60 mL/min [facility] Work Phone: [phone] Glucose [Mass/Vol] 93 mg/dL 70 - 100 mg/dL [facility] Work Phone: [phone] Potassium [Moles/Vol] 4.5 mmol/L 3.5 - 5.1 mmol/L [facility] Work Phone: [phone] Sodium [Moles/Vol] 138 mmol/L 135 - 145 mmol/L [facility] Work Phone: [phone] Urea nitrogen [Mass/Vol] 18 mg/dL 7 - 20 mg/dL [facility] Work Phone: [phone] Test Performed by [facility], [facility] [place] [address] [facility] Work Phone: CBCOrdered By: Vern rao on 04-16-2019 MCHC 33.4 % 32 - 36 % [facility] Work Phone: Test Performed by [facility], [address] [place] [address] [facility] Work Phone: ECHO Complete 2D W Doppler W ColorOrdered By: 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 on 04-16-2019 TRANSTHORACIC ECHOCARDIOGRAM PATIENT: Jacob Landa STUDY DATE: 04/16/2019 : 1955 AGE: 64 HT/WT: 175.3 cm (69 118.8 kg in) (261.4 lb) GENDER: M BP: 130 / 76 LOCATION: [facility] PATIENT Outpatient [facility] Ashleigh Aiden STATUS: [place] *ORDERING PHYSICIAN: * 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 *READING PHYSICIAN: * Cong Horton, *MANAGER CORE: * PARTH Shetty DO, [facility] INDICATIONS: Severe aortic stenosis; 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 [...] Ascending aorta ID/bsa, (more content not included)... 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 [...] ID, ES (L) (more content not included)... [employer] Work Phone: Echo Complete w/wo Contrasto n 04-16-2019 Echo Complete w/wo Contrast Patient Name: JACOB LANDA Ultrasound Exam Date/Time 04/16/2019 16:15:14 EST Exam Echo Complete w/wo Contrast Ordering Physician CORRINE HARDING MICHELLE Accession Number [id number] Reason For Exam TAVR Report TRANSTHORACIC ECHOCARDIOGRAM PATIENT: Jacob Landa STUDY DATE: 04/16/2019 : 1955 AGE: 64 HT/WT: 175.3 cm (69 118.8 kg in) (261.4 lb) GENDER: M BP: 130 / 76 LOCATION: [facility] PATIENT Outpatient [facility] STATUS: [place] *ORDERING PHYSICIAN: * 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 *READING PHYSICIAN: * Cong Horton, *MANAGER CORE: * MILTON Shetty DO, FACC [employer] [facility] INDICATIONS: Severe aortic stenosis; 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 [...] Electronically signed by Cong Horton DO, FS, [facility] 04/16/2019 17:09 Prior Signatures: Final Dictated: 04/16/2019 5:09 pm Dictating Physician: DO HORTON JOSEPH Signed Date and Time: 04/16/2019 5:09 pm Signed by: DO HORTON JOSEPH Normal [facility] Hemogramon 04-16-2019 MCHC (RBC) [Mass/Vol] 33.4 % Normal 32.0-36.0 [facility] Comment on above: Performed By: #### H SUSY BMP3 #### [place] [address] [address], [place] HemogramOrdered By: 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 on 04-16-2019 Erythrocyte distribution width (RBC) [Ratio] 13.4 % Normal 11.5-14.5 [facility] Work Phone: Comment on above: Performed By: #### H EMOG, BMP3 #### [place] [address] [address], [place] Hematocrit (Bld) [Volume fraction] 43.2 % Normal 40.0-52.0 [facility] Work Phone: Comment on above: Performed By: #### H EMOG, BMP3 #### [address] Hemoglobin (Bld) [Mass/Vol] 14.4 g/dL Normal 13.0-18.0 [facility] Work Phone: Comment on above: Performed By: #### H EMOG, BMP3 #### [place] [address] [place], [place] MCH (RBC) [Entitic mass] 28.9 pg Normal 26.0-34.0 [facility] Work Phone: Comment on above: Performed By: #### H EMOFernando, BMP3 #### [employer] [address], [place] MCV (RBC) [Entitic vol] 86.7 fL Normal 80.0-98.0 [facility] Work Phone: Comment on above: Performed By: #### H EMOG, BMP3 #### [employer] [facility] [address], [place] Platelet mean volume (Bld) [Entitic vol] 8.3 fL Normal 7.4-10.4 [facility] Work Phone: Comment on above: Performed By: #### H EMOG, BMP3 #### [employer] [facility] [address], [place] Platelets (Bld) [#/Vol] 155 10*3/uL Normal 140-440 [facility] Work Phone: Comment on above: Performed By: #### H EMOG, BMP3 #### [employer] [facility] [address] [place], [place] RBC (Bld) [#/Vol] 4.99 10*6/uL Normal 4.40-5.90 [facility] Work Phone: Comment on above: Performed By: #### H EMOG, BMP3 #### [employer] [facility] [address], [place] WBC (Bld) [#/Vol] 6.0 10*3/uL Normal 3.6-10.7 [facility] Work Phone: Comment on above: Performed By: #### H EMOG, BMP3 #### [employer] [facility] [address], [place] Op Noteon 03-13-2019 Op Note PATIENT: [...] symptomatic aortic valvular stenosis. Anesthesia: Conscious sedation. Pressurization Mechanic: Tyshawn Magallanes Complications: None. Indications for Procedure: [...] radial artery and right femoral vein. A 6-Gambian sheath was placed in the right femoral vein through which a temporary pacing wire was advanced in the right ventricular apex where appropriate capture was documented. Sterile tubing was attached to the side port of the sheath. A 6-Gambian sheath was placed in the right radial artery through which a pigtail catheter was advanced in the aortic annulus for confirmation of implant angle. A 6-Gambian sheath was placed in the right femoral [...] to the recovery room. Disk[employer] Job ID: [id number] Jp Zhao MD DOD:03/13/2019 12:41 P MADAN/chon DOT:03/13/2019 01:56 P Job Number: [id number] Document Number: [id number] cc: Tyshawn Magallanes MD [address] [facility] [address] [facility] [address] Jp Zhao MD [facility] [address] [facility] [address] [facility] [address] Normal [facility] Basic Metabolic Panelon 02-08 Anion gap [Moles/Vol] 7 mmol/L [place], [place] Calcium [Mass/Vol] 8.8 mg/dL 8.4 - 10. 4 mg/dL [place] Chloride [Moles/Vol] 103 mmol/L 98 - 10 7 mmol/L [place] CO2 [Moles/Vol] 24 mmol/L 22 - 30 mmol/L [place] Creatinine [Mass/Vol] 1.26 mg/dL High 0.52 - 1.25 mg/dL [place] EGFR IF NonAfrican Ivorian 57.4 mL/min >60 [place] Comment on above: Source- MDRD equatio n with creatinine calibration to IDMS(NKDEP) eGFR not recommended for drug dose adjustment GFR/1.73 sq M predicted among blacks MDRD (S/P/Bld) [Vol rate/Area] mL/min/{1.73_m2} >60 mL/min [place] Glucose [Mass/Vol] 96 mg/dL 70 - 100 mg/dL [place] Interpretation and review of laboratory results Abnormal [place] Potassium [Moles/Vol] 4.2 mmol/L 3.5 - 5.1 mmol/L [place] Comment on above: Slightly hemolysed, interpret with caution. Sodium [Moles/Vol] 134 mmol/L Low 135 - 145 mmol/L [place] Urea nitrogen [Mass/Vol] 21 mg/dL High 7 - 20 mg/dL [place] Test Performed by [facility], [address] [place] [address] [place], [place] CBCon 03-04-2019 Erythrocyte distribution width (RBC) [Ratio] 13.4 % 11.5 - 14.5 % [place] Hematocrit (Bld) [Volume fraction] 39.0 % Low 40 - 52 % [place] Hemoglobin (Bld) [Mass/Vol] 13.3 g/dL 13 - 18 g/dL [place] Interpretation and review of laboratory results Abnormal [place] MCH (RBC) [Entitic mass] 30.0 pg 26 - 34 pg [place] MCHC (RBC) [Mass/Vol] 34.0 % 32 - 36 % [place], [place] MCV (RBC) [Entitic vol] 88.2 fL 80 - 98 fL [place] Platelet mean volume (Bld) [Entitic vol] 8.4 fL 7.4 - 10.4 fL [place] Platelets (Bld) [#/Vol] 149 10*3/uL 140 - 440 10*3/uL [place] RBC (Bld) [#/Vol] 4.42 10*6/uL 4.4 - 5.9 10*6/uL [place] WBC (Bld) [#/Vol] 6.9 10*3/uL 3.6 - 10.7 10*3/uL [place] Test Performed by [facility], [address] [place] [id number] [place] [address] ECHO Complete 2D W Doppler W Coloron 03-04-2019 [facility] Incoming Cardiology Results From [facility]/Pete - 03/04/2019 12:51 PM EST TRANSTHORACIC ECHOCARDIOGRAM PATIENT: Jacob Landa STUDY DATE: 03/04/2019 : 1955 AGE: 63 HT/WT: 175.3 cm (69 115 kg in) (253 lb) GENDER: M BP: 113 / 67 LOCATION: [facility] PATIENT Inpatient [facility] STATUS: *ORDERING PHYSICIAN: * 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 *READING PHYSICIAN: * Anderson *MANAGER CORE: * Justus Persaud RDCS, MD AE INDICATIONS: [...] Anderson Jerome MD 03/04/2019 12:50 Prior Signatures: [facility] TRANSTHORACIC ECHOCARDIOGRAM PATIENT: Jacob Landa STUDY DATE: 03/04/2019 : 1955 AGE: 63 HT/WT: 175.3 cm (69 115 kg in) (253 lb) GENDER: M BP: 113 / 67 LOCATION: [facility] PATIENT Inpatient [facility] STATUS: *ORDERING PHYSICIAN: * 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 *READING PHYSICIAN: * Anderson *MANAGER CORE: * Justus Persaud RDCS, MD AE INDICATIONS: [...] Anderson Jerome MD 03/04/2019 12:50 Prior Signatures: [employer] Basic Metabolic Panelon 02-08 Anion gap [Moles/Vol] 6 mmol/L [facility] Calcium [Mass/Vol] 8.9 mg/dL 8.4 - 10. 4 mg/dL [place] Chloride [Moles/Vol] 106 mmol/L 98 - 10 7 mmol/L [place] CO2 [Moles/Vol] 25 mmol/L 22 - 30 mmol/L [place] Creatinine [Mass/Vol] 1.16 mg/dL 0.52 - 1.25 mg/dL [place] EGFR IF NonAfrican Ivorian >60.0 >60 mL/min [place] Comment on above: Source- MDRD equatio n with creatinine calibration to IDMS(NKDEP) eGFR not recommended for drug dose adjustment GFR/1.73 sq M predicted among blacks MDRD (S/P/Bld) [Vol rate/Area] mL/min/{1.73_m2} >60 mL/min [place] Glucose [Mass/Vol] 93 mg/dL 70 - 100 mg/dL [place] Potassium [Moles/Vol] 4.4 mmol/L 3.5 - 5.1 mmol/L [place] Sodium [Moles/Vol] 137 mmol/L 135 - 145 mmol/L [place] Urea nitrogen [Mass/Vol] 17 mg/dL 7 - 20 mg/dL [place] Test Performed by [facility], [address] [place] [id number] [place] [address] CBCon 03-03-2019 Erythrocyte distribution width (RBC) [Ratio] 13.8 % 11.5 - 14.5 % [place] Hematocrit (Bld) [Volume fraction] 39.4 % Low 40 - 52 % [place] Hemoglobin (Bld) [Mass/Vol] 13.4 g/dL 13 - 18 g/dL [place] Interpretation and review of laboratory results Abnormal [place] MCH (RBC) [Entitic mass] 29.5 pg 26 - 34 pg [place] MCHC (RBC) [Mass/Vol] 34.0 % 32 - 36 % [place], [place] MCV (RBC) [Entitic vol] 87.0 fL 80 - 98 fL [place] Platelet mean volume (Bld) [Entitic vol] 8.2 fL 7.4 - 10.4 fL [facility], [place] Platelets (Bld) [#/Vol] 186 10*3/uL 140 - 440 10*3/uL [facility], [place] RBC (Bld) [#/Vol] 4.53 10*6/uL 4.4 - 5.9 10*6/uL [facility], [place] WBC (Bld) [#/Vol] 6.5 10*3/uL 3.6 - 10.7 10*3/uL [facility], [place] Test Performed by [facility], [address] [place] [id number] [place] [address] ECHO Limitedon 03-03-2019 [facility] Cardiology Results From [facility]/Epiphany - 03/03/2019 8:55 AM EST LIMITED TRANSTHORACIC ECHOCARDIOGRAM Perioperative - TAVR PATIENT: Jacob Landa STUDY DATE: 03/03/2019 : 1955 AGE: 63 HT/WT: 175.3 cm (69 116.6 kg in) (256.5 lb) GENDER: M BP: 112 / 79 LOCATION: [facility] PATIENT Inpatient [facility] STATUS: *ORDERING PHYSICIAN: * Tyshawn Magallanes MD *READING PHYSICIAN: * Steve Washington MD, [facility] *MANAGER CORE: * Lin TAHYER INDICATIONS: Aortic Stenosis/ TAVR. CONCLUSIONS SUMMARY: 1. [...] range. Electronically signed by Steve Washington MD, [facility] 03/03/2019 08:55 Prior Signatures: [facility], [place] LIMITED TRANSTHORACI C ECHOCARDIOGRAM Perioperative - TAVR PATIENT: Jacob Landa STUDY DATE: 03/03/2019 : 1955 AGE: 63 HT/WT: 175.3 cm (69 116.6 kg in) (256.5 lb) GENDER: M BP: 112 / 79 LOCATION: [facility] PATIENT Inpatient [facility] STATUS: *ORDERING PHYSICIAN: * Tyshawn Magallanes MD *READING PHYSICIAN: * Steve Washington MD, FACC *MANAGER CORE: * Lin Lynch RCS INDICATIONS: Aortic Stenosis/ [...] range. Electronically signed by Steve Washington MD, [facility] 03/03/2019 08:55 Prior Signatures: [place] Potassium w/ Reflex to Susanna andrade 03-03-2019 Potassium [Moles/Vol] 4.7 mmol/L 3.5 - 5.1 mmol/L [place] Test Performed by [facility], [facility] [address] [address] [place] Brain Natriuretic Peptideon 02-21-2019 Interpretation and review of laboratory results Abnormal [place] Natriuretic peptide B (Bld) [Mass/Vol] 180 pg/mL High 0 - 125 pg/mL [place] Test Performed by [facility], [facility] [address] [place] [address] [place] CBC Auto Differentialon 02-07 Erythrocyte distribution width (RBC) [Ratio] 13.3 % 11.5 - 14.5 % [place] Hematocrit (Bld) [Volume fraction] 43.5 % 40 - 52 % [place] Hemoglobin (Bld) [Mass/Vol] 14.7 g/dL 13 - 18 g/dL [place] MCH (RBC) [Entitic mass] 30.1 pg 26 - 34 pg [place] MCHC (RBC) [Mass/Vol] 33.7 % 32 - 36 % [place], [place] MCV (RBC) [Entitic vol] 89.3 fL 80 - 98 fL [place] Platelet mean volume (Bld) [Entitic vol] 8.4 fL 7.4 - 10.4 fL [place] Platelets (Bld) [#/Vol] 256 10*3/uL 140 - 440 10*3/uL [place] RBC (Bld) [#/Vol] 4.87 10*6/uL 4.4 - 5.9 10*6/uL [place] WBC (Bld) [#/Vol] 8.7 10*3/uL 3.6 - 10.7 10*3/uL [place] Test Performed by [facility], [address] [place] [address] [facility], [place] CTA Chest Abdomen Pelvis [facility] 02-21-2019 Patient Name: JACOB LANDA ---CT--- Exam Date/Time 02/21/2019 09:52:28 EST Exam CTA Chest/Abdomen/Pelvis w/ + w/o contra Ordering Physician MD MAGALLANES PETER Accession Number [id number] CPT4 Codes Q9967 (CT ISOVUE [id number]/[id number]&1) , 60884 (), [address] () Reason For Exam TAVR Report [facility] Valve [facility] Cardiovascular CTA Indication: 63 year-old man with severe aortic stenosis, being evaluated for transcatheter aortic valve implantation. Technique: Computed tomography of the heart, thoracoabdominal aorta, and iliofemoral system was performed using a [employer]ilion One 320 detector scanner. Images were [...] pattern of right coronary dominance. There severe paskenta coronary atherosclerosis. Prior RCA stenting. A MCKEON [...] severely calcified. Predicted deployment angle (3-cusp view): GREENLANDIC 10, OIL REFINERY OPERATOR 7 Aortic Annulus: Dimensions: 3.03 x [...] GOODEN Transcribed Date and Time: 02/21/2019 1:52 [facility] Incoming Radiology Results From [facility] - 02/21/2019 2:18 PM EST Patient Name: JACOB LANDA ---CT--- Exam Date/Time 02/21/2019 09:52:28 EST Exam CTA Chest/Abdomen/Pelvis w/ + w/o contra Ordering Physician MD MAGALLANES PETER Accession Number [id number] CPT4 Codes Q9967 (CT ISOVUE 370MG/[id number]&ML&1) , 00467 (), [address]308 () Reason For Exam TAVR Report [facility] Valve [facility] Cardiovascular CTA Indication: 63 year-old man with severe aortic stenosis, being evaluated for transcatheter aortic valve implantation. Technique: Computed tomography of the heart, thoracoabdominal aorta, and iliofemoral system was performed using a [employer] One 320 detector scanner. Images were [...] pattern of right coronary dominance. There severe paskenta coronary atherosclerosis. Prior RCA stenting. A MCKEON [...] severely calcified. Predicted deployment angle (3-cusp view): GREENLANDIC 10, OIL REFINERY OPERATOR 7 Aortic Annulus: Dimensions: 3.03 x [...] GOODEN Transcribed Date and Time: 02/21/2019 1:52 [place] Comprehensive Metabolic Pane sergei 02-21-2019 Albumin [Mass/Vol] 4.4 g/dL 3.5 - 5 g/dL [place], [place] ALP [Catalytic activity/Vol] 66 U/L 38 - 126 U/L [place] ALT [Catalytic activity/Vol] 33 U/L 13 - 69 U/L [place] Anion gap [Moles/Vol] 12 mmol/L [place], [place] AST [Catalytic activity/Vol] 27 U/L 15 - 46 U/L [place] Bilirubin Ql (U) 0.7 mg/dL 0.2 - 1.3 mg/dL [place] Calcium [Mass/Vol] 9.6 mg/dL 8.4 - 10. 4 mg/dL [place] Chloride [Moles/Vol] 100 mmol/L 98 - 10 7 mmol/L [place] CO2 [Moles/Vol] 27 mmol/L 22 - 30 mmol/L [place] Creatinine [Mass/Vol] 1.13 mg/dL 0.52 - 1.25 mg/dL [place] EGFR IF NonAfrican Ivorian >60.0 >60 mL/min [place] Comment on above: Source- MDRD equatio n with creatinine calibration to IDVA(NKDEP) eGFR not recommended for drug dose adjustment GFR/1.73 sq M predicted among blacks MDRD (S/P/Bld) [Vol rate/Area] mL/min/{1.73_m2} >60 mL/min [place] Glucose [Mass/Vol] 60 mg/dL Low 70 - 100 mg/dL [place] Interpretation and review of laboratory results Abnormal [place] Potassium [Moles/Vol] 3.1 mmol/L Low 3.5 - 5.1 mmol/L [place] Protein [Mass/Vol] 7.6 g/dL 6.3 - 8.2 g/dL [place] Sodium [Moles/Vol] 138 mmol/L 135 - 145 mmol/L [place] Urea nitrogen [Mass/Vol] 16 mg/dL 7 - 20 mg/dL [place] Test Performed by [facility], [address] [place] [id number] [place] Manual Differentialon 2018 Absolute Baso # 0.0 10*3/uL 0 - 0.2 10*3/uL [facility], [place] Absolute Eos # 0.3 10*3/uL 0 - 0.5 10*3/uL [facility], [place] Absolute Lymph # 2.0 10*3/uL 1.1 - 4.5 10*3/uL [facility], [place] Absolute [place] # 1.0 10*3/uL 0.2 - 1.1 10*3/uL [facility], [place] Absolute Neut # 5.4 10*3/uL 2.2 - 8.2 10*3/uL [facility], [place] Anisocytosis Ql (Bld) Slight [facility], [place] Bands 0 % 0 - 3 % [facility], [place] Basophils 0 % 0 - 2 % [facility], [place] Eosinophils 4 % 1 - 6 % [facility], [place] Interpretation and review of laboratory results Abnormal [place] Lymphocytes 23 % 20 - 40 % [facility], [place] Microcytosis Slight [facility], [place] Monocytes 11 % High 2 - 10 % [facility], [place] Poikilocytes [place]light [place] RBC morphology finding Nom (Bld) ABNORMAL [place] Seg Neutrophils 62 % 40 - 80 % [facility], [place] TOTAL CELLS COUNTED 100 [place] Test Performed by [facility], [address] [place] [address] [facility], [place] Protime/INR & PTTon 02-22-20 19 aPTT Coag (Bld) [Time] 25.1 s 20 - 30.5 s [place] Comment on above: NOTE: The therapeuti c time for Heparin anticoagulation, based on Xa activity inhibition, is an APTT of 46-80 seconds. INR Coag (PPP) [Relative time] 1.0 {INR} [place] Comment on above: Recommended Anticoag ulant [...] [Time] 10.9 s 9 - 12 s [place], [place] Comment on above: . Test Performed by [facility], [address] [place] [id number] [place] [address] TYPE AND SCREENon 02-21-2019 Sodium [Moles/Vol] Positive [place] Comment on above: Test Performed by [facility], [address] [place] [address] Sodium [Moles/Vol] A [place] Sodium [Moles/Vol] Negative [place] Comment on above: Test Performed by [facility], [address] [place] [address] Test Performed by [address] [address] [place] Urinalysison 02-21-2019 Appearance (U) Clear Clear [place], [place] Bilirubin Urine Negative Negative mg/dL [place] Color (U) Colorless Lt. Yellow NA [place] Glucose, Ur Normal Normal (<70) mg/dL [place] Ketones Ql (U) Negative Negative mg/dL [place] LEUKOCYTES, UA Negative Negative Diane/uL [place] Nitrite, Urine Negative Negative NA [place] Occult Blood,Urine Negative Negative mg/dL [place] pH (U) 5.0 [pH] [place] Protein (U) [Mass/Vol] Negative Negative mg/dL [facility] [place] Specific [place], Urine >1.030 [facility] Urobilinogen, Urine Normal Normal ( 0-1) mg/dL [facility] Test Performed by [facility], [address] [place] [address] [place] XR CHEST STANDARD (2 VW)on 04-23-2018 Faizan, Mega Incoming Radiology Results From [facility] - 02/21/2019 12:07 PM EST Patient Name: JACOB LANDA ---Diagnostic Radiology--- Exam Date/Time 02/21/2019 12:06:38 EST Exam CR Chest PA/LAT Ordering Physician MOHINI TOSCANO MEGGAN Accession Number [id number] CPT4 Codes 86058 () Reason For Exam TAVR Report Indication: [...] ANTHONY Transcribed Date and Time: 02/21/2019 12:03 [facility] Patient Name: JACOB LANDA ---Diagnostic Radiology--- Exam Date/Time 02/21/2019 12:06:38 EST Exam CR Chest PA/LAT Ordering Physician MOHINI TOSCANO MEGGAN Accession Number [id number] CPT4 Codes 00411 () Reason For Exam TAVR Report Indication: [...] ANTHONY Transcribed Date and Time: 02/21/2019 12:03 [place] Basic Metabolic Panelon 02-07 Anion gap [Moles/Vol] 8 mmol/L [place], [place] Calcium [Mass/Vol] 9.8 mg/dL 8.4 - 10. 4 mg/dL [place] Chloride [Moles/Vol] 103 mmol/L 98 - 10 7 mmol/L [place] CO2 [Moles/Vol] 28 mmol/L 22 - 30 mmol/L [place] Creatinine [Mass/Vol] 1.22 mg/dL 0.52 - 1.25 mg/dL [place] EGFR IF NonAfrican Ivorian 59.6 mL/min >60 [place] Comment on above: Source- MDRD equatio n with creatinine calibration to IDMS(NKDEP) eGFR not recommended for drug dose adjustment GFR/1.73 sq M predicted among blacks MDRD (S/P/Bld) [Vol rate/Area] mL/min/{1.73_m2} >60 mL/min [place] Glucose [Mass/Vol] 81 mg/dL 70 - 100 mg/dL [place] Potassium [Moles/Vol] 4.4 mmol/L 3.5 - 5.1 mmol/L [place] Sodium [Moles/Vol] 138 mmol/L 135 - 145 mmol/L [place] Urea nitrogen [Mass/Vol] 16 mg/dL 7 - 20 mg/dL [place] Test Performed by [facility], [address] [place] [address] [place] Activated Clotting Time (ACT ) POCT (Uploon 01-02-2019 ACT Coag (Bld) 175 Sec Normal [facility] Comment on above: Result Comment: Kourtney tment ranges and critical values established by Patient Care Services. All follow-up actions were taken by Patient Care Services. Performed By: #### 4 8054-1 ####[facility] POINT OF CARE Basic Metabolic Panelon 12-09 Anion gap [Moles/Vol] 9.0 mmol/L Normal 6.0-18.0 [facility] Comment on above: Performed By: #### 6 9405-9, 29621-5t4, 00438-5 ####[facility] [address] [place], [place] Calcium [Mass/Vol] 9.3 mg/dL Normal 8.9-10.3 [facility] Comment on above: Performed By: #### 6 9405-9, 45308-6r6, 49266-2 ####[facility] [address] [place], [place] Chloride [Moles/Vol] 106 mmol/L Normal 98-107 [facility] Comment on above: Performed By: #### 6 9405-9, 61259-1i2, 76189-9 ####[facility] [address] [place], [place] CO2 [Moles/Vol] 26 mmol/L Normal 22-32 [facility] Comment on above: Performed By: #### 6 9405-9, 41167-0q5, 36655-0 ####[facility] [address] [place], [place] Creatinine [Mass/Vol] 1.19 mg/dL Normal 0.60-1.30 [facility] Comment on above: Performed By: #### 6 9405-9, 03429-4u0, 28042-8 ####[facility] [address], [place] Glucose [Mass/Vol] 98 mg/dL Normal 70-99 [facility] Comment on above: Result Comment: U pdated ADA Reference Range A normal fasting glucose concentration is less than 100 mg/dL. An impaired fasting glucose concentration is 100-125 mg/dL. A provisional diagnosis of diabetes mellitus can be made when a fasting glucose concentration is greater than 125 mg/dL. Performed By: #### 6 9405-9, 07594-7l5, 71138-2 ####[facility] [address] [place], [place] Potassium [Moles/Vol] 3.8 mmol/L Normal 3.6-5.1 [facility] Comment on above: Performed By: #### 6 9405-9, 01397-1p1, 52887-1 ####[place] [address] [place], [place] Sodium [Moles/Vol] 141 mmol/L Normal 136-145 [facility] Comment on above: Performed By: #### 6 9405-9, 82843-6o0, 24590-2 ####[place] [address] [place], [place] Urea nitrogen (BldV) [Mass/Vol] 13 mg/dL Normal 8-20 [facility] Comment on above: Performed By: #### 6 9405-9, 49142-4w6, 21599-4 ####[address] GFRaaon 01-01-2019 GFR/1.73 sq M predicted among blacks MDRD (S/P/Bld) [Vol rate/Area] mL/min/{1.73_m2} Normal [facility] Comment on above: Result Comment: The MDRD equation has not been validated for those over 70 years, women, patients with serious co-morbid conditions, or with extremes of body size, muscle mass of nutritional status. Performed By: #### 6 9405-9, 97216-0f4, 05136-3 ####[facility] [address] [place], [place] GFRbbon 01-01-2019 GFR/1.73 sq M predicted among non-blacks MDRD (S/P/Bld) [Vol rate/Area] mL/min/{1.73_m2} Normal [facility] Comment on above: Performed By: #### 6 9405-9, 63054-1i3, 67709-9 ####[facility] [address] [place], [place] Patient Summaryon 01-01-2019 Patient Summary PATIENT DISCHARGE INSTRUCTIONS If you are having an emergency and are not able to reach your physician, CALL 911 or go to the nearest emergency room and take this document with you. [facility] 01/01/19 13:40 [address] [place]. [address] PATIENT INFORMATION ------ Name: JACOB LANDA Address: [address] [place] [id number] Age: 63 Years Phone: [phone] : 1955 12:00 MRN: [facility][id number] Sex: Male Race: White Ethnicity: Not Hispan/Lat Admitted From: [facility] Medical Service: Internal Medicine Nurse Unit/Bed: (OR) [facility] [id number] Admit Date: 12/31/2018 10:30 PCP: Physician, PCP [...] Comment: We have called Dr. Wilson, your utilization specialist, and notified them the need for an [...] doses are changed, or new medications (including hfnf-xpd-dmzwhfr products) are added. Ask your doctor if [...] day. fluticasone nasal (Flonase 50 mcg Nasal [place]) 1 [place](s) Nasal (Intranasal) once a day. hydroCHLOROthiazide 25 [...] Comment fluticasone nasal (Flonase 50 mcg Nasal [place]) 1 [place](s) Nasal (Intranasal) once a day. Comment hydroCHLOROthiazide [...] stop taking Plavix unless approved by your Pressurization Mechanic. If you have nitroglycerin, remember to carry [...] suicide hotline, anytime day or night, at 2-987-771-AQRY. Important information about accessing your health information through the [facility] patient portal If you initiated the self-registration process for [facility] during your stay, please check your personal email for an invitation to enroll in [facility] and complete the steps outlined in the email. If you would prefer to enroll while in the hospital, ask a member of your care team. We would be happy to assist you. If you have already enrolled in [facility], go to [email or web address] to login and access your health information. Thank you for choosing [facility]. PATIENT EDUCATION Heart-Healthy Eating Plan Many factors [...] FOODS CAN I EAT? Grains Breads, including Gambian, white, savana, wheat, raisin, rye, oatmeal, and Yakut. Tortillas that are neither fried nor made with lard or trans fat. Low-fat rolls, including hotdog and hamburger buns and Jordanian muffins. Biscuits. Muffins. Waffles. Pancakes. Light popcorn. Whole-grain cereals. Flatbread. Bristol toast. Pretzels. Breadsticks. Rusks. Low-fat snacks and [...] cooking, baking, salads, and as spreads. Other [place] powder. Coffee and tea. All seasonings and [...] cheese. Whole milk cheeses, including blue (donny), [place] Gilbert, Brie, Alexx, Ivorian, Havarti, Romanian, cheddar, Camembert, and Epsom. ?Whole or 2% milk that is liquid, [...] that has suet, meat fat, or shortening. [place] butter, hydrogenated oils, palm oil, coconut oil, [...] 01/02/2009 Document Revised: 04/16/2015 Document Reviewed: 09/17/2014 [employer] Interactive Patient Education ?2016 [employer]. Groin Surgical Site Care Refer to this [...] provider. Document Released: 11/27/2014 Document Reviewed: 11/27/2014 [employer] Interactive Patient Education ?2016 [employer]. Radial Site Care Refer to this sheet [...] 04/28/2011 Document Revised: 04/16/2015 Document Reviewed: 10/12/2014 [employer] Interactive Patient Education ?2016 [employer]. Coronary Angiogram With Stent Coronary angiography [...] including vitamins, herbs, eye drops, creams, and cdqb-lis-hjefgcx medicines. ?Previous problems you or members of [...] 09/30/2003 Document Revised: 04/16/2015 Document Reviewed: 10/02/2013 ElseGeniuzz Interactive Patient Education ?2016 Elsevier Inc. Echocardiogram [...] including vitamins, herbs, eye drops, creams, and faxr-xwh-dyqevvm medicines. ???Previous problems you or members of [...] Reviewed: 12/01/2013 Elsevier Interactive Patient Education ?2015 [employer]. PATIENT DISCHARGE INSTRUCTION Signature Page for: JACOB LANDA Date/Time: 01/01/2019 13:40:34 A Clinician has explained the information on my discharge instructions and has provided me with a copy. My questions have been answered to my satisfaction. Patient Signature Date/Time Responsible Party Date/Time Relationship to Patient _ Clinician Signature ____ Date/Time __ Normal [facility] Activated Clotting Time (ACT ) POCT (Uploon 12-31-2018 ACT Coag (Bld) 155 Sec [facility] Comment on above: Result Comment: Kourtney tment ranges and critical values established by Patient Care Services. All follow-up actions were taken by Patient Care Services. Performed By: #### 4 8054-1 ####[facility] POINT OF CARE ACT Coag (Bld) 187 Sec [facility] Comment on above: Result Comment: Kourtney tment ranges and critical values established by Patient Care Services. All follow-up actions were taken by Patient Care Services. Performed By: #### 6 9405-9, 03329-8e5, 11023-5, 80825-2 #### [facility] [address] [place], [place] ACT Coag (Bld) 267 [address] [facility] Comment on above: Result Comment: Kourtney tment ranges and critical values established by Patient Care Services. All follow-up actions were taken by Patient Care Services. Performed By: #### 6 9405-9, 90543-4s2, 00024-6, 14905-4 #### [facility] [address] [place], [place] ACT Coag (Bld) 155 [address] [facility] Comment on above: Result Comment: Kourtney tment ranges and critical values established by Patient Care Services. All follow-up actions were taken by Patient Care Services. Performed By: #### 6 9405-9, 72506-8n4, 62732-3, 04279-6 #### [facility] [address] [place], [place] BUNon 12-31-2018 Urea nitrogen (BldV) [Mass/Vol] 13 mg/dL Normal 8-20 [facility] Comment on above: Performed By: #### 6 9405-9, 36382-4k4, 27841-7, 56010-4 #### [facility] [address] [place], [place] Basic Metabolic Panelon - Anion gap [Moles/Vol] 9.0 mmol/L Normal 6.0-18.0 [facility] Comment on above: Performed By: #### 6 9405-9, 48630-2n3, 55646-1, 27076-6 #### [facility] [address] [place], [place] Calcium [Mass/Vol] 8.4 mg/dL Low 8.9-10.3 [facility] Comment on above: Performed By: #### 6 9405-9, 88491-6d5, 19896-6, 68365-3 #### [facility] [address] [place], [place] Chloride [Moles/Vol] 108 mmol/L High 98-107 [facility] Comment on above: Performed By: #### 6 9405-9, 42392-8u3, 01671-7, 58352-2 #### [facility] [address] [place], [place] CO2 [Moles/Vol] 26 mmol/L Normal 22-32 [facility] Comment on above: Performed By: #### 6 9405-9, 11913-4k6, 41728-7, 59008-6 #### [facility] [address] [place], [place] Creatinine [Mass/Vol] 0.54 mg/dL Low 0.60-1.30 [facility] Comment on above: Performed By: #### 6 9405-9, 40298-2i5, 73732-9, 10206-6 #### [facility] [address] [place], [place] Glucose [Mass/Vol] 74 mg/dL Normal 70-99 [facility] Comment on above: Result Comment: U pdated ADA Reference Range A normal fasting glucose concentration is less than 100 mg/dL. An impaired fasting glucose concentration is 100-125 mg/dL. A provisional diagnosis of diabetes mellitus can be made when a fasting glucose concentration is greater than 125 mg/dL. Performed By: #### 6 9405-9, 08986-2k0, 11825-4, 69293-3 #### [facility] [address] [place], [place] Potassium [Moles/Vol] 4.0 mmol/L Normal 3.6-5.1 [facility] Comment on above: Performed By: #### 6 9405-9, 62231-5l2, 85862-3, 32955-6 #### [facility] [address] [place], [place] Sodium [Moles/Vol] 143 mmol/L Normal 136-145 [facility] Comment on above: Performed By: #### 6 9405-9, 15825-1a7, 40932-2, 66807-9 #### [facility] [address] [place], [place] Urea nitrogen (BldV) [Mass/Vol] 8 mg/dL Normal 8-20 [facility] Comment on above: Performed By: #### 6 9405-9, 15559-1b1, 16504-4, 31097-4 #### [facility] [address] [place], [place] Calcium [Mass/Vol] 8.7 mg/dL Normal 8.5-10.6 [facility] Chloride [Moles/Vol] 94 mmol/L Low 98-107 [facility] CO2 [Moles/Vol] 36 mmol/L High 21-32 [facility] Creatinine [Mass/Vol] 0.76 mg/dL Normal 0.70-1.30 [facility] Glucose [Mass/Vol] 165 mg/dL High 70-99 [facility] Potassium [Moles/Vol] 3.7 mmol/L Normal 3.5-5.1 [facility] Sodium [Moles/Vol] 139 mmol/L Normal 136-145 [facility] Urea nitrogen (BldV) [Mass/Vol] 17 mg/dL Normal 7.0-18.0 [facility] Urea nitrogen/Creatinine [Mass ratio] 22 mg/mg Normal [facility] C-Reactive Proteinon 019 CRP [Mass/Vol] 257.7 mg/L High 0.0-9.0 [facility] CBCon 12-31-2018 Erythrocyte distribution width (RBC) [Entitic vol] 13.4 % Normal 11.0-14.8 [facility] Comment on above: Performed By: #### 6 9405-9, 48894-1z4, 53744-3, 75314-1 #### [facility] [address] [place], [place] Hematocrit (Bld) [Volume fraction] 38.4 % Low 39.0-49.0 [facility] Comment on above: Performed By: #### 6 9405-9, 73589-3n9, 68202-0, 14184-9 #### [facility] [address] [place], [place] Hemoglobin (Bld) [Mass/Vol] 13.3 g/dL Low 13.5-17.5 [facility] Comment on above: Performed By: #### 6 9405-9, 75805-9d7, 57283-0, 01765-3 #### [facility] [address] [place], [place] MCH (RBC) [Entitic mass] 30.4 Picograms Normal 27.0-34.0 [facility] Comment on above: Performed By: #### 6 9405-9, 27898-9a6, 19889-7, 48481-8 #### [facility] [address] [place], [place] MCHC (RBC) [Mass/Vol] 34.7 g/dL Normal 32.0-36.0 [facility] Comment on above: Performed By: #### 6 9405-9, 32404-9o8, 62213-8, 94368-3 #### [facility] [address] [place], [place] MCV (RBC) [Entitic vol] 87.7 fL Normal 80.0-97.0 [facility] Comment on above: Performed By: #### 6 9405-9, 28294-3u4, 03842-5, 92226-9 #### [facility] [address] [place], [place] Platelet mean volume (Bld) [Entitic vol] 8.8 fL Normal 6.2-12.1 [facility] Comment on above: Performed By: #### 6 9405-9, 81564-4d8, 20834-0, 53895-5 #### [facility] [address] [place], [place] Platelets (Bld) [#/Vol] 129 thou/mcL Low 142-424 [facility] Comment on above: Performed By: #### 6 9405-9, 33825-9z8, 66908-0, 28084-5 #### [place] [address] [place], [place] RBC (Bld) [#/Vol] 4.38 million/mcL Normal 4.30-5.70 [facility] Comment on above: Performed By: #### 6 9405-9, 48349-2h8, 16256-4, 86144-6 #### [facility] [address] [place], [place] WBC (Bld) [#/Vol] 4.8 thou/mcL Normal 4.6-10.2 [facility] Comment on above: Performed By: #### 6 9405-9, 69204-2g2, 40487-1, 34600-5 #### [facility] [address] [place], [place] CBC with Differentialon 12-09 Basophils (Bld) [#/Vol] 0.1 thou/mcL Normal 0.0-0.2 [facility] Basophils/100 WBC (Bld) 0.6 % Normal 0-3 [facility] Differential cell count method Nom (Bld) AUTOMATED DIFFERENTIAL Normal [facility] Eosinophils (Bld) [#/Vol] 0.5 thou/mcL High 0.0-0.4 [facility] Eosinophils/100 WBC (Bld) 4.0 % Normal 0-7 [facility] Lymphocytes (Bld) [#/Vol] 1.7 thou/mcL Normal 0.7-4.5 [facility] Lymphocytes/100 WBC (Bld) 14.5 % Normal 14-46 [facility] Monocytes (Bld) [#/Vol] 0.8 thou/mcL Normal 0.1-1.0 [facility] Monocytes/100 WBC (Bld) 6.6 % Normal 4-13 [facility] Neutrophils (Bld) [#/Vol] 8.9 thou/mcL High 1.5-7.8 [facility] Neutrophils/100 WBC (Bld) 74.3 % High 40-74 [facility] RBC morphology finding Nom (Bld) 1+ Normal [facility] Comment on above: Result Comment: POIK ILOCYTOSIS 2+ HYPOCHROMIA 2+ MICROCYTES Erythrocyte distribution width (RBC) [Entitic vol] 16.2 % High 11.7-15.0 [facility] Hematocrit (Bld) [Volume fraction] 17.4 % Low 34.0-50.0 [facility] Hemoglobin (Bld) [Mass/Vol] 5.8 g/dL Off scale low 11.5-17.0 [facility] Comment on above: Result Comment: RESU LTS VERIFIED AND CALLED TO/READ BACK BY REMBERTO CHRIS 12.31.18 @ 0520 BF. MCH (RBC) [Entitic mass] 25.8 Picograms Low 27.0-34.0 [facility] MCHC (RBC) [Mass/Vol] 33.2 g/dL Normal 32.0-36.0 [facility] MCV (RBC) [Entitic vol] 77.7 fL Low 80-98 [facility] Platelet mean volume (Bld) [Entitic vol] 8.1 fL Normal 7.5-11.2 [facility] Platelets (Bld) [#/Vol] 328 thou/mcL Normal 140-415 [facility] RBC (Bld) [#/Vol] 2.23 x(10)6/mcL Low 3.80-5.60 [facility] WBC (Bld) [#/Vol] 12.0 thou/mcL High 4.0-10.5 [facility] Basophils (Bld) [#/Vol] 0.10 thou/mcL Normal 0.00-0.20 [facility] Comment on above: Performed By: #### 6 9405-9, 69132-3p5, 01112-1, 94586-9 #### [facility] [address] [place], [place] Basophils/100 WBC (Bld) 0.8 % Normal 0.0-2.0 [facility] Comment on above: Performed By: #### 6 9405-9, 66334-8e6, 72284-8, 75460-1 #### [facility] [address] [place], [place] Eosinophils (Bld) [#/Vol] 0.50 thou/mcL Normal 0.00-0.70 [facility] Comment on above: Performed By: #### 6 9405-9, 32042-7p3, 88948-7, 88111-0 #### [facility] [address] [place], [place] Eosinophils/100 WBC (Bld) 5.4 % Normal 0.0-7.0 [facility] Comment on above: Performed By: #### 6 9405-9, 38047-3s4, 22158-3, 42669-1 #### [facility] [address] [place], [place] Erythrocyte distribution width (RBC) [Entitic vol] 14.1 % Normal 11.0-14.8 [facility] Comment on above: Performed By: #### 6 9405-9, 05369-7m2, 87505-4, 27310-4 #### [facility] [address] [place], [place] Hematocrit (Bld) [Volume fraction] 41.2 % Normal 39.0-49.0 [facility] Comment on above: Performed By: #### 6 9405-9, 08894-4y2, 68435-9, 18359-5 #### [facility] [address] [place], [place] Hemoglobin (Bld) [Mass/Vol] 13.9 g/dL Normal 13.5-17.5 [facility] Comment on above: Performed By: #### 6 9405-9, 34569-6o8, 60481-2, 42661-4 #### [facility] [address] [place], [place] Lymphocytes (Bld) [#/Vol] 1.50 thou/mcL Normal 1.00-4.80 [facility] Comment on above: Performed By: #### 6 9405-9, 36725-3w5, 15208-6, 12955-2 #### [facility] [address] [place], [place] Lymphocytes/100 WBC (Bld) 17.8 % Low 22.0-44.0 [facility] Comment on above: Performed By: #### 6 9405-9, 18769-0m3, 30994-9, 98692-6 #### [facility] [address] [place], [place] MCH (RBC) [Entitic mass] 32.1 Picograms Normal 27.0-34.0 [facility] Comment on above: Performed By: #### 6 9405-9, 82119-0o7, 45405-5, 61829-8 #### [facility] [address] [place], [place] MCHC (RBC) [Mass/Vol] 33.8 g/dL Normal 32.0-36.0 [facility] Comment on above: Performed By: #### 6 9405-9, 34756-1z0, 87878-6, 57078-7 #### [facility] [address] [place], [place] MCV (RBC) [Entitic vol] 95.1 fL Normal 80.0-97.0 [facility] Comment on above: Performed By: #### 6 9405-9, 48783-1z9, 13227-7, 48770-4 #### [facility] [address] [place], [place] Monocytes (Bld) [#/Vol] 0.90 thou/mcL Normal 0.00-0.90 [facility] Comment on above: Performed By: #### 6 9405-9, 56760-0t9, 22811-7, 19567-0 #### [facility] [address] [place], [place] Monocytes/100 WBC (Bld) 10.9 % Normal 0.0-12.0 [facility] Comment on above: Performed By: #### 6 9405-9, 02429-8w7, 93848-1, 68689-6 #### [facility] [address] [place], [place] Neutrophils (Bld) [#/Vol] 5.40 thou/mcL Normal 1.80-7.70 [facility] Comment on above: Performed By: #### 6 9405-9, 72786-7f4, 91220-2, 40953-2 #### [address] Neutrophils/100 WBC (Bld) 65.1 % Normal 40.0-70.0 [facility] Comment on above: Performed By: #### 6 9405-9, 28643-2s6, 05045-7, 76813-9 #### [facility] [address] [place], [place] Platelet mean volume (Bld) [Entitic vol] 9.2 fL Normal 6.2-12.1 [facility] Comment on above: Performed By: #### 6 9405-9, 19399-6h0, 79662-3, 84248-5 #### [facility] [address] [place], [place] Platelets (Bld) [#/Vol] 210 thou/mcL Normal 142-424 [facility] Comment on above: Performed By: #### 6 9405-9, 65422-6v9, 17045-1, 95997-9 #### [facility] [address], [place] RBC (Bld) [#/Vol] 4.33 million/mcL Normal 4.30-5.70 [facility] Comment on above: Performed By: #### 6 9405-9, 55119-6e2, 49587-5, 60228-9 #### [facility] [address], [place] WBC (Bld) [#/Vol] 8.3 thou/mcL Normal 4.6-10.2 [facility] Comment on above: Performed By: #### 6 9405-9, 73152-5z4, 82017-5, 71347-5 #### [facility] [address], [place] Comprehensive Metabolic Pane sergei 12-31-2018 Albumin [Mass/Vol] 3.6 g/dL Normal 3.5-4.8 [facility] Comment on above: Performed By: #### 6 9405-9, 79532-4n2, 68084-2, 81216-3 #### [facility] [address], [place] ALP [Catalytic activity/Vol] 44 Units/L Normal 32-91 [facility] Comment on above: Performed By: #### 6 9405-9, 48261-7d6, 23376-7, 79509-5 #### [facility] [address], [place] ALT [Catalytic activity/Vol] 20 Units/L Normal 14-63 [facility] Comment on above: Performed By: #### 6 9405-9, 53506-7l2, 21924-3, 63742-1 #### [facility] [address], [place] Anion gap [Moles/Vol] 7.0 mmol/L Normal 6.0-18.0 [facility] Comment on above: Performed By: #### 6 9405-9, 50883-4e3, 99461-3, 59912-8 #### [facility] [address], [place] AST [Catalytic activity/Vol] 17 Units/L Normal 15-41 [facility] Comment on above: Performed By: #### 6 9405-9, 81195-4p0, 50145-7, 71089-7 #### [facility] [address], [place] Bilirubin [Mass/Vol] 1.2 mg/dL Normal 0.3-1.2 [facility] Comment on above: Performed By: #### 6 9405-9, 19670-6m2, 03429-3, 27691-4 #### [facility] [address], [place] Calcium [Mass/Vol] 9.0 mg/dL Normal 8.9-10.3 [facility] Comment on above: Performed By: #### 6 9405-9, 43402-4k6, 33499-2, 94239-1 #### [facility] [address], [place] Chloride [Moles/Vol] 109 mmol/L High 98-107 [facility] Comment on above: Performed By: #### 6 9405-9, 57088-4e3, 87030-0, 46593-9 #### [facility] [address], [place] CO2 [Moles/Vol] 24 mmol/L Normal 22-32 [facility] Comment on above: Performed By: #### 6 9405-9, 11332-1s8, 10662-1, 40569-1 #### [facility] [address], [place] Creatinine [Mass/Vol] 0.98 mg/dL Normal 0.60-1.30 [facility] Comment on above: Performed By: #### 6 9405-9, 72840-0v0, 28634-0, 36857-6 #### [facility] [address], [place] Glucose [Mass/Vol] 104 mg/dL High 70-99 [facility] Comment on above: Result Comment: U pdated ADA Reference Range A normal fasting glucose concentration is less than 100 mg/dL. An impaired fasting glucose concentration is 100-125 mg/dL. A provisional diagnosis of diabetes mellitus can be made when a fasting glucose concentration is greater than 125 mg/dL. Performed By: #### 6 9405-9, 51717-2j4, 27168-1, 94225-6 #### [facility] [address], [place] Potassium [Moles/Vol] 3.9 mmol/L Normal 3.6-5.1 [facility] Comment on above: Performed By: #### 6 9405-9, 52890-0w3, 14602-3, 85372-8 #### [facility] [address], [place] Protein [Mass/Vol] 6.0 g/dL Low 6.1-7.9 [facility] Comment on above: Performed By: #### 6 9405-9, 09227-4u2, 66930-6, 30813-6 #### [facility] [address], [place] Sodium [Moles/Vol] 140 mmol/L Normal 136-145 [facility] Comment on above: Performed By: #### 6 9405-9, 65270-2y3, 77411-3, 89969-4 #### [facility] [address], [place] Urea nitrogen (BldV) [Mass/Vol] 13 mg/dL Normal 8-20 [facility] Comment on above: Performed By: #### 6 9405-9, 64785-3e4, 02024-4, 99829-1 #### [facility] [address], [place] Creatinineon 12-31-2018 Creatinine [Mass/Vol] 0.94 mg/dL Normal 0.66-1.30 [facility] Comment on above: Performed By: #### 6 9405-9, 15456-5a5, 48146-5, 79788-2 #### [facility] [address], [place] Electrolyte Panelon 01-01-20 19 Anion gap [Moles/Vol] 12.0 mmol/L Normal 6.0-18.0 [facility] Comment on above: Performed By: #### 6 9405-9, 05734-6y1, 69289-1, 65769-0 #### [facility] [address], [place] Chloride [Moles/Vol] 96 mmol/L Low 98-107 [facility] Comment on above: Performed By: #### 6 9405-9, 28470-1q1, 33778-0, 89387-7 #### [facility] [address], [place] CO2 [Moles/Vol] 23 mmol/L Normal 22-32 [facility] Comment on above: Performed By: #### 6 9405-9, 85518-7k3, 75177-3, 25236-9 #### [facility] [address], [place] Potassium [Moles/Vol] 4.1 mmol/L Normal 3.6-5.1 [facility] Comment on above: Performed By: #### 6 9405-9, 21414-4z5, 03484-1, 39589-5 #### [facility] [address], [place] Sodium [Moles/Vol] 131 mmol/L Low 136-145 [facility] Comment on above: Performed By: #### 6 9405-9, 40537-7b2, 14813-6, 38255-8 #### [facility] [address], [place] GFRaaon 12-31-2018 GFR/1.73 sq M predicted among blacks MDRD (S/P/Bld) [Vol rate/Area] mL/min/{1.73_m2} Normal [facility] Comment on above: Result Comment: The MDRD equation has not been validated for those over 70 years, women, patients with serious co-morbid conditions, or with extremes of body size, muscle mass of nutritional status. Performed By: #### 6 9405-9, 35852-0g0, 07650-7, 71973-5 #### [facility] [address], [place] GFR/1.73 sq M predicted among blacks MDRD (S/P/Bld) [Vol rate/Area] mL/min/{1.73_m2} Normal [facility] Comment on above: Result Comment: The MDRD equation has not been validated for those over 70 years, women, patients with serious co-morbid conditions, or with extremes of body size, muscle mass of nutritional status. Performed By: #### 6 9405-9, 01173-6s9, 62370-2, 78947-6 #### [facility] [address], [place] GFRbbon 12-31-2018 GFR/1.73 sq M predicted among non-blacks MDRD (S/P/Bld) [Vol rate/Area] mL/min/{1.73_m2} Normal [facility] Comment on above: Performed By: #### 6 9405-9, 60272-9g2, 85215-0, 18291-0 #### [facility] [address], [place] GFR/1.73 sq M predicted among non-blacks MDRD (S/P/Bld) [Vol rate/Area] 56 mL/min/{1.73_m2} Normal [facility] Comment on above: Performed By: #### 6 9405-9, 81054-2y0, 62433-3, 69971-8 #### [facility] [address], [place] Magnesium Levelon 12-31-2018 Magnesium [Mass/Vol] 1.5 mg/dL Low 1.8-2.4 [facility] Partial Thromboplastin Time (aPTT)on 12-31-2018 aPTT Coag (PPP) [Time] 74.4 Sec High 23.3-35.3 [facility] Comment on above: Order Comment: To be drawn (0600, 1400, 2200) while on heparin Result Comment: LAUREN CANCHOLA NOTE: OF OCTOBER 01, 2018,NEW NORMAL REFERENCE RANGE aPTT Coag (PPP) [Time] 51.1 Sec High 23.3-35.3 [facility] Comment on above: Order Comment: To be drawn (0600, 1400, 2200) while on heparin Result Comment: LAUREN CANCHOLA NOTE: OF OCTOBER 01, 2018,NEW NORMAL REFERENCE RANGE Sedimentation Rate rbcon ESR (Bld) [Velocity] 43 mm/h High 0-20 [facility] ESR (Bld) [Velocity] 30 mm/h High 0-15 [facility] Comment on above: Performed By: #### 6 9405-9, 90366-5f1, 67557-4, 87062-1 #### [facility] [address], [place] Test Result Ejection Fractio non 12-31-2018 Test Result Ejection Fraction Normal [facility] Test Result Ejection Fraction 55-60 Normal [facility] Troponin Ion 12-31-2018 Troponin I.cardiac [Mass/Vol] 0.11 ng/mL High <0.06 [facility] Comment on above: Performed By: #### 6 9405-9, 67413-8y1, 15536-0, 78060-2 #### [facility] [address], [place] Troponin I.cardiac [Mass/Vol] 0.10 ng/mL High <0.06 [facility] Comment on above: Performed By: #### 6 9405-9, 76790-1w4, 05363-7, 37545-6 #### [facility] [address], [place] Basic Metabolic Panelon 12-09 Anion gap [Moles/Vol] 8.0 mmol/L Normal 6.0-18.0 [facility] Comment on above: Performed By: #### 6 9405-9, 18782-4d5, 07485-5, 95483-2 #### [facility] [address], [place] Calcium [Mass/Vol] 9.4 mg/dL Normal 8.9-10.3 [facility] Comment on above: Performed By: #### 6 9405-9, 82323-8p8, 93993-2, 26942-8 #### [facility] [address], [place] Chloride [Moles/Vol] 109 mmol/L High 98-107 [facility] Comment on above: Performed By: #### 6 9405-9, 83713-8h3, 27532-1, 73295-8 #### [facility] [address], [place] CO2 [Moles/Vol] 26 mmol/L Normal 22-32 [facility] Comment on above: Performed By: #### 6 9405-9, 05214-1o2, 70883-2, 28522-3 #### [facility] [address], [place] Creatinine [Mass/Vol] 1.24 mg/dL Normal 0.60-1.30 [facility] Comment on above: Performed By: #### 6 9405-9, 54268-6p9, 15704-7, 84274-8 #### [facility] [address], [place] Glucose [Mass/Vol] 82 mg/dL Normal 70-99 [facility] Comment on above: Result Comment: U pdated ADA Reference Range A normal fasting glucose concentration is less than 100 mg/dL. An impaired fasting glucose concentration is 100-125 mg/dL. A provisional diagnosis of diabetes mellitus can be made when a fasting glucose concentration is greater than 125 mg/dL. Performed By: #### 6 9405-9, 71974-3t2, 08143-9, 36284-8 #### [facility] [address], [place] Potassium [Moles/Vol] 4.4 mmol/L Normal 3.6-5.1 [facility] Comment on above: Performed By: #### 6 9405-9, 27365-1p9, 71901-2, 83953-1 #### [facility] [address], [place] Sodium [Moles/Vol] 143 mmol/L Normal 136-145 [facility] Comment on above: Performed By: #### 6 9405-9, 05410-3w5, 71735-0, 04096-6 #### [facility] [address], [place] Urea nitrogen (BldV) [Mass/Vol] 12 mg/dL Normal 8-20 [facility] Comment on above: Performed By: #### 6 9405-9, 47508-9c3, 74105-2, 98348-8 #### [facility] [address], [place] ED Pat Toan 12-30-2018 ED Pat Edu [facility] [address] [place], [place] [address] Emergency Department Discharge Instructions JACOB [...] Servicios de Emergencia Name JACOB LANDA MRN (COL)-[id number] PLEASE READ THE FOLLOWING REGARDING YOUR MEDICATIONS [...] doses are changed, or new medications (including kkoe-qfw-yvcoiog products) are added. If you have any [...] day. fluticasone nasal (Flonase 50 mcg Nasal [place]) 1 [place](s) Nasal (Intranasal) once a day. hydroCHLOROthiazide 25 [...] Comment fluticasone nasal (Flonase 50 mcg Nasal [place]) 1 [place](s) Nasal (Intranasal) once a day. Comment hydroCHLOROthiazide [...] UNTIL YOU TALK TO YOUR DOCTOR None [facility] [address] [place], [place] [address] Emergency Department Discharge Instructions Name: JACOB LANDA Current Date: 12/30/2018 18:05:49 : 1955 Primary Physician: Physician, PCP Unknown We would like to thank you for choosing [facility] for your emergency medical needs. We [...] and the health of those around you. [facility] offers many resources to help with smoking cessation. Call the [place] Tobacco Quit Line at 1-928-JQSVNOW ( ). High blood pressure: Your screening [...] deadly infections. Discuss this with your child's boiler cleaner, or Public Health Department. Your family practice doctor can determine if you need pneumonia or flu vaccine. The [facility] Department can be reached at . Substance Abuse Program: Concerns with addiction to alcohol, benzodiazepines (Ativan or Xanax) and Opiates (Heroin, Percocet, OxyContin, Methadone or Fentanyl)? [facility] offers an inpatient Substance Abuse Program to help treat the symptoms associated with medical detoxification of addictive substances. The new program offers care for non- adults (18 and older) looking to break the chain to addictive chemicals. The Substance Abuse Program is a voluntary inpatient admission and it starts with a pre-screening phone call to a social media community manager. During the call, goals and objectives for recovery and how the patient will transition to outpatient care will be established. Please call [phone] to get help today. Domestic Violence: If you are a victim of domestic violence (physical, verbal, or emotional), you are not alone. Discuss this with your physician or a friend and call the [place] Domestic Violence Hotline or [place] Domestic Violence Hotline for assistance and support. [...] physician, call the Physician Referral Line at [phone] 869-YJUN (8596). Suicide Hotline: Your mental and emotional well-being is important. If you are in a mental health crisis or are having thoughts of suicide, please call the nationwide suicide hotline, anytime day or night, at 0-654-326-WWHN (1235). Community Internal Grinding Machine Operator: You may be contacted by your local fire department for a follow up visit from a community cement despatch operator. The community cement despatch operator can help with a home safety check; follow up care, and general home care management. Pharmacy Information: Below is a list of 24 hour pharmacies that we are aware of. We suggest that you call the specific pharmacy for their hours before traveling to a location. Hours may vary on holidays. [facility] [place] [address], [place] [phone] [address], [place] 614 [phone] [address] [place], [place] [address] [phone] [address], [place] [phone] [address], [place] [phone] [address], [place] [phone] [place] [address] [phone] Take all medications as directed. If you need prescription assistance, contact the following agencies: ?? Partnership for Prescription Assistance at or www.pparx.org ?? [place]' Best Rx at or www.[place]estrx.org ?? www.GoodRx.[employer] is a site with many valuable coupons [...] Time Patient Signature Date Time Provider Signature [facility] GFRaaon 12-30-2018 GFR/1.73 sq M predicted among blacks MDRD (S/P/Bld) [Vol rate/Area] mL/min/{1.73_m2} [facility] Comment on above: Result Comment: The MDRD equation has not been validated for those over 70 years, women, patients with serious co-morbid conditions, or with extremes of body size, muscle mass of nutritional status. Performed By: #### 6 9405-9, 80410-4o1, 32122-1, 15235-4 #### [place] [address] GFRbbon 12-30-2018 GFR/1.73 sq M predicted among non-blacks MDRD (S/P/Bld) [Vol rate/Area] 59 mL/min/{1.73_m2} [facility] Comment on above: Performed By: #### 6 9405-9, 16953-1m3, 85223-6, 70700-3 #### [place] [address], [place] Partial Thromboplastin Time (aPTT)on 12-30-2018 aPTT Coag (PPP) [Time] 26.5 Sec Normal 23.3-35.3 [facility] Comment on above: Result Comment: LAUREN CANCHOLA NOTE: OF OCTOBER 01, 2018,NEW NORMAL REFERENCE RANGE Performed By: #### 3 173-2, 5902-2 #### [address] Prothrombin Timeon 9 INR Coag (Bld) [Relative time] 1.09 {INR} Normal [facility] Comment on above: Result Comment: The recommended therapeutic INR range for most cardiac indications is 2.0-3.0. For high intensity therapy(ie.mechanical heart valves), the recommended range is 2.5-3.5. Performed By: #### 3 173-2, 5902-2 #### [address] PT Coag (PPP) [Time] 14.4 Sec Normal 11.9-14.7 [facility] Comment on above: Result Comment: LAUREN CANCHOLA NOTE: OF OCTOBER 01, 2018,NEW NORMAL REFERENCE RANGE Performed By: #### 3 173-2, 5902-2 #### [address] Troponin Ion 12-30-2018 Troponin I.cardiac [Mass/Vol] 0.11 ng/mL High <0.06 [facility] Comment on above: Performed By: #### 1 0839-9 #### [address] Troponin I.cardiac [Mass/Vol] 0.08 ng/mL High <0.06 [facility] Comment on above: Performed By: #### 6 9405-9, 33859-1v2, 98075-1, 29203-6 #### [address] XR Chest 2 Viewson 9 XR Chest 2 views EXAMINATION TYPE: XR Chest 2 Views DATE OF EXAM : 12/30/2018 1:49 PM HISTORY: Chest Pain , shortness of breath COMPARISON: NONE FINDINGS: Cardiac silhouette is within normal limits. There is no lung consolidation or pleural effusion. There are sternotomy wires. IMPRESSION: No acute abnormality [place] thanks you for the opportunity to care for your patient. Workstation ID: [id number] - [id number] FINAL REPORT Dictated By: Maximus Rogers MD 12/30/2018 13:55 Assigned Physician: Maximus Rogers MD Reviewed and Electronically Signed By: Maximus Rogers MD 12/30/2018 13:56 Transcribed by: HEATH 12/30/2018 13:55 Technologist: ELISE Normal [facility] MSCon 11-24-2017 [facility] REPORT Normal [facility] DATE OF SERVICE: 11/24/2017REASON FOR VISIT: Painful rash on the back.HISTORY OF PRESENT ILLNESS: This is a 62-year-old male presenting with an area ofpainful rash on the low back since yesterday. Patient stated that he had cellulitison his back about a month ago. At that time he was treated with 2 antibiotics. 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 BOBBY Zepeda/[id number]: 11/24/2017 11:08DT: 11/25/2017 06:31SSI File#: [id number] #: [id number]/Reviewed by12/17/17 1421 PAWPR [facility] PATIENT NAME: JACOB LANDA R132Alanis [facility] [address] MEDICAL REC #: [id number], [place] [address] [facility]ARE PHYSICIAN [facility] Basic Metabolic Profon 07-20 (cont.) [facility] Comment on above: Result Comment: Aver age GFR for 60-69 years old: 85 mL/min/1.73sq mChronic Kidney Disease: <60 mL/min/1.73sq mKidney failure: <15 mL/min/1.73sq meGFR calculated using average adult body mass. Additional eGFR calculator available at:http://www.[facility].[employer]/multiple_crcl_2011.htmPerformed at [facility] [address] [place] [address] Performed By: #### C DP, BMP, BNP, TROPI ####[facility] [place] [address] Anion gap 12 mmol/L Normal 9-17 [facility] Comment on above: Performed By: #### C DP, BMP, BNP, TROPI ####[place] [address] [place] [address] BUN/CRE Ratio 13 Normal 9-20 [facility] Comment on above: Performed By: #### C DP, BMP, BNP, TROPI ####[place] [address] [place] [address] Calcium 9.3 mg/dL Normal 8.6-10.4 [facility] Comment on above: Performed By: #### C DP, BMP, BNP, TROPI ####[address] [place] [address] Chloride 103 mmol/L Normal 98-107 [facility] Comment on above: Performed By: #### C DP, BMP, BNP, TROPI ####[address] [place] [address] CO2 27 mmol/L Normal 20-31 [facility] Comment on above: Performed By: #### C DP, BMP, BNP, TROPI ####[place] [address] [place] [address] Creatinine 1.20 mg/dL Normal 0.70-1.20 [facility] Comment on above: Performed By: #### C DP, BMP, BNP, TROPI ####[place] [address] [facility] [place] [address] eGFR (non-black) mL/min/{1.73_m2} Normal >60 [facility] Comment on above: Performed By: #### C DP, BMP, BNP, TROPI ####[address] [place] [address] Glucose mass conc 182 mg/dL High 70-99 [facility] Comment on above: Performed By: #### C DP, BMP, BNP, TROPI ####[facility] [place] [address] Potassium molar conc 3.7 mmol/L Normal 3.7-5.3 [facility] Comment on above: Performed By: #### C DP, BMP, BNP, TROPI ####[address] [place] [address] Sodium 142 mmol/L Normal 135-144 [facility] Comment on above: Performed By: #### C DP, BMP, BNP, TROPI ####[address] [place] [address] Urea nitrogen 16 mg/dL Normal 8-23 [facility] Comment on above: Performed By: #### C DP, BMP, BNP, TROPI ####[place] [address] [facility] [place] [address] Staging: NOT REPORTED Normal [facility] Comment on above: Performed By: #### C DP, BMP, BNP, TROPI ####[address] [place] [address] Brain Natri. Peptideon 07-20 BNP Normal [facility] Comment on above: Result Comment: Pro- BNP Reference Range:Rule Out: <300Grey Zone: Age <50 300-450 Age 50-75 300-900 Age >75 300-1800Usually represents mild to moderate HF but other cardiopulmonary causes cannot be ruled out.Rule In: Age <50 >450 Age 50-75 >900 Age >75 >1800Performed at [facility] [address] [place] [address] Performed By: #### C DP, BMP, BNP, TROPI ####[place] [address] [place] [address] BNP 109 pg/mL Normal <300 [facility] Comment on above: Result Comment: Pro- BNP results cannot be compared to BNP results. Performed By: #### C DP, BMP, BNP, TROPI ####[place] [address] [facility] [place] [address] CBC with Diffon 07-20-2017 Abs. Basophil 0.00 k/uL Normal 0.0-0.2 [facility] Comment on above: Result Comment: Perf ormed at [facility] [address] [facility] [place] [address] Performed By: #### C DP, BMP, BNP, TROPI ####[place] [address] [facility] [place] [address] Abs.Neutrophil (Seg) 3.30 k/uL Normal 2.1-6.5 [facility] Comment on above: Performed By: #### C DP, BMP, BNP, TROPI ####[address] [place] [address] Auto Diff Performed YES Normal [facility] Comment on above: Performed By: #### C DP, BMP, BNP, TROPI ####[address] [place] [address] Basophils/100 WBC Auto (Bld) 1 % Normal 0-2 [facility] Comment on above: Performed By: #### C DP, BMP, BNP, TROPI ####[address] [place] [address] Eosinophils 0.10 10*3/uL Normal 0.0-0.4 [facility] Comment on above: Performed By: #### C DP, BMP, BNP, TROPI ####[place] [address] [facility] [place] [address] Eosinophils/100 leukocytes 2 % Normal 0-5 [facility] Comment on above: Performed By: #### C DP, BMP, BNP, TROPI ####[facility] [place] [address] Erythrocyte distribution width Auto Ratio (RBC) 13.7 % Normal 12.1-15.2 [facility] Comment on above: Performed By: #### C DP, BMP, BNP, TROPI ####[place] [address] [facility] [address] [place] [address] Erythrocytes (RBC) 5.00 10*6/uL Normal 4.5-5.9 [facility] Comment on above: Performed By: #### C DP, BMP, BNP, TROPI ####[address] [place] [address] Hematocrit (HCT) 43.2 % Normal 41-53 [facility] Comment on above: Performed By: #### C DP, BMP, BNP, TROPI ####[address] [place] [address] Hemoglobin mass conc (Bld) 14.7 g/dL Normal 13.5-17.5 [facility] Comment on above: Performed By: #### C DP, BMP, BNP, TROPI ####[address] [place] [address] Lymphocytes 1.00 10*3/uL Normal 1.0-4.8 [facility] Comment on above: Performed By: #### C DP, BMP, BNP, TROPI ####[address] [place] [address] Lymphocytes/100 leukocytes 22 % Normal 13-44 [facility] Comment on above: Performed By: #### C DP, BMP, BNP, TROPI ####[place] [id number] [facility] [address] [place] [address] MCH 29.4 pg Normal 26-34 [facility] Comment on above: Performed By: #### C DP, BMP, BNP, TROPI ####[facility] [place] [address] MCHC mass conc (RBC) 34.0 g/dL Normal 31-37 [facility] Comment on above: Performed By: #### C DP, BMP, BNP, TROPI ####[facility] [facility] [place] [address] MCV 86.4 fL Normal 80-100 [facility] Comment on above: Performed By: #### C DP, BMP, BNP, TROPI ####[facility] [facility] [place] [address] Monocytes 0.30 10*3/uL Normal 0.0-1.0 [facility] Comment on above: Performed By: #### C DP, BMP, BNP, TROPI ####[place] [address] [facility] [place] [address] Monocytes/100 leukocytes 5 % Normal 5-9 [facility] Comment on above: Performed By: #### C DP, BMP, BNP, TROPI ####[place] [id number] [facility] [place] [address] Neutrophil (Seg) 70 % Normal 39-75 [facility] Comment on above: Performed By: #### C DP, BMP, BNP, TROPI ####[place] [id number] [place] [address] Platelets 165 10*3/uL Normal 140-450 [facility] Comment on above: Performed By: #### C DP, BMP, BNP, TROPI ####[place] [id number] [facility] [place] [address] WBC (Leukocytes) 4.6 10*3/uL Normal 3.5-11.0 [facility] Comment on above: Performed By: #### C DP, BMP, BNP, TROPI ####[place] [id number] [facility] [place] [address] Erythrocyte morphology NOT REPORTED Normal [facility] Comment on above: Performed By: #### C DP, BMP, BNP, TROPI ####[facility] [facility] [place] [address] Erythrocytes (RBC) NOT REPORTED Normal [facility] Comment on above: Performed By: #### C DP, BMP, BNP, TROPI ####[facility] [facility] [place] [address] Granulocytes/100 WBC (Bld) NOT REPORTED Normal 0.00-0.30 [facility] Comment on above: Performed By: #### C DP, BMP, BNP, TROPI ####[facility] [facility] [place] [address] Immature granulocytes #/vol (Bld) NOT REPORTED Normal 0 [facility] Comment on above: Performed By: #### C DP, BMP, BNP, TROPI ####[facility] [facility] [place] [address] Platelet mean volume (PMV) NOT REPORTED Normal 6.0-12.0 [facility] Comment on above: Performed By: #### C DP, BMP, BNP, TROPI ####[facility] [facility] [place] [address] Platelets NOT REPORTED Normal [facility] Comment on above: Performed By: #### C DP, BMP, BNP, TROPI ####[facility] [facility] [place] [address] WBC Morphology NOT REPORTED Normal [facility] Comment on above: Performed By: #### C DP, BMP, BNP, TROPI ####[facility] [facility] [place] [address] ED Noteon 07-20-2017 HIM IP Note OR Ell Tutor Normal [facility] HIM IP Note OR Ell Tutor Normal [facility] ED Provider Noteon 8 HIM IP Note OR Ell Tutor Normal [facility] Troponinon 07-20-2017 Troponin I.cardiac mass conc Normal [facility] Comment on above: Result Comment: Refe rence Range: <0.03 Within reference range. 0.03-0.09 Possible myocardial damage.Repeat at appropriate intervals to rule out chronic elevation. >= 0.10 Indicative of myocardial damage.Patients with high levels of Biotin oral intake (i.e >5mg/day) may have falsely decreased Troponin T levels. Samples collected within 8 hours of biotin intake may require additional information for diagnosis.Performed at [facility] [address] [facility] [place] [address] Performed By: #### T ROPI ####[facility] [facility] [place] [address] Troponin T.cardiac mass conc ug/L Normal <0.03 [facility] Comment on above: Result Comment: Trop onin T results cannot be compared to Troponin-I results. Performed By: #### T ROPI ####[place] [id number] [facility] [place] [address] Troponin I.cardiac mass conc Normal [facility] Comment on above: Result Comment: Refe rence Range: <0.03 Within reference range. 0.03-0.09 Possible myocardial damage.Repeat at appropriate intervals to rule out chronic elevation. >= 0.10 Indicative of myocardial damage.Patients with high levels of Biotin oral intake (i.e >5mg/day) may have falsely decreased Troponin T levels. Samples collected within 8 hours of biotin intake may require additional information for diagnosis.Performed at [facility] [address] [facility] [place] [address] Performed By: #### C DP, BMP, BNP, TROPI ####[facility] [facility] [place] [address] Troponin T.cardiac mass conc ug/L Normal <0.03 [facility] Comment on above: Result Comment: Trop onin T results cannot be compared to Troponin-I results. Performed By: #### C DP, BMP, BNP, TROPI ####[facility] [place] [address] XR CHEST (2 VW)on 07-20-2017 XR CHEST (2 VW) Chest, 2 views on 3 radiographs:CLINICAL HISTORY: Shortness of breath.COMPARISON: 07/15/2013.FINDINGS: Prior median sternotomy and CABG. Cardiomediastinal contour is within normal limits. No focal consolidative process, pulmonary edema, pleural effusion or pneumothorax. Osseous structures are intact.IMPRESSION: No acute cardiopulmonary process.Interpreted by:HUDSON Diasigned by:Benito Andre MD07/20/17inal result Normal [facility] Vital Signs Date Time Vital Sign Value Performing Clinician Curt morales 12-24-2024 09:43-0400 Body mass index (BMI) [Ratio] 21.32 kg/m2 Bobby Swank COMPUTER CONSOLE OPERATOR.WILDLIFE CONSERVATION OFFICER Work Phone: [facility] 12-24-2024 09:43-0400 Body temperature 98.01 [degF] Bobby Swank COMPUTER CONSOLE OPERATOR.WILDLIFE CONSERVATION OFFICER Work Phone: [facility] 12-24-2024 09:43-0400 Body weight 67.4 kg Bobby Swank COMPUTER CONSOLE OPERATOR.WILDLIFE CONSERVATION OFFICER Work Phone: [facility] 12-24-2024 09:43-0400 Diastolic blood pressure 72 mm[Hg] Bobby Swank COMPUTER CONSOLE OPERATOR.WILDLIFE CONSERVATION OFFICER Work Phone: [facility] 12-24-2024 09:43-0400 Heart rate 79 /min Bobby Swank COMPUTER CONSOLE OPERATOR.WILDLIFE CONSERVATION OFFICER Work Phone: [facility] 12-24-2024 09:43-0400 Respiratory rate 18 /min Bobby Swank COMPUTER CONSOLE OPERATOR.WILDLIFE CONSERVATION OFFICER Work Phone: [facility] 12-24-2024 09:43-0400 SaO2% (BldA) [Mass fraction] 98 % Bobby Swank COMPUTER CONSOLE OPERATOR.WILDLIFE CONSERVATION OFFICER Work Phone: [facility] 12-24-2024 09:43-0400 Systolic blood pressure 122 mm[Hg] Bobby Bruce BRANDON Work Phone: [facility] 11-14-2024 09:30-0400 Body height 175.[address] Yaw Yoder Work Phone: [facility] 11-14-2024 09:30-0400 Body mass index (BMI) [Ratio] 22.8 kg/m2 Dr. Yaw Singh MD Work Phone: [facility] 11-14-2024 09:30-0400 Body weight 70.[address] Yaw Yoder Work Phone: [facility] 11-07-2024 09:37-0400 Body mass index (BMI) [Ratio] 22.38 kg/m2 Richard Masci DO Work Phone: [facility] 11-07-2024 09:37-0400 Body temperature 97.11 [degF] Richard Masci DO Work Phone: [facility] 11-07-2024 09:37-0400 Body weight 70.76 kg Richard Masci DO Work Phone: [facility] 11-07-2024 09:37-0400 Diastolic blood pressure 71 mm[Hg] Richard Masci DO Work Phone: [facility] 11-07-2024 09:37-0400 Heart rate 87 /min Richard Masci DO Work Phone: [facility] 11-07-2024 09:37-0400 SaO2% (BldA) [Mass fraction] 95 % Richard Masci DO Work Phone: [facility] 11-07-2024 09:37-0400 Systolic blood pressure 111 mm[Hg] Richard Masci DO Work Phone: [facility] 10-23-2024 14:53-0400 Body height 177.8 cm Delicia Díaz MD Work Phone: [facility] 10-23-2024 14:53-0400 Body mass index (BMI) [Ratio] 23.02 kg/m2 Delicia Díaz MD Work Phone: [facility] 10-23-2024 14:53-0400 Body weight 72.76 kg Delicia Díaz MD Work Phone: [facility] 10-23-2024 14:53-0400 Diastolic blood pressure 62 mm[Hg] Delicia Díaz MD Work Phone: [facility] 10-23-2024 14:53-0400 Heart rate 83 /min Delicia Díaz MD Work Phone: [facility] 10-23-2024 14:53-0400 Respiratory rate 21 /min Delicia Díaz MD Work Phone: [facility] 10-23-2024 14:53-0400 SaO2% (BldA) [Mass fraction] 95 % Delicia Díaz MD Work Phone: [facility] 10-23-2024 14:53-0400 Systolic blood pressure 112 mm[Hg] Delicia Díaz MD Work Phone: [facility] 10-15-2024 09:21-0400 Body height 175.[address] Yaw Yoder Work Phone: [facility] 10-15-2024 09:21-0400 Body weight 73.[address] Yaw Yoder Work Phone: [facility] 10-14-2024 09:21-0400 Body mass index (BMI) [Ratio] 23.8 kg/m2 Dr. Yaw Singh MD Work Phone: [facility] 10-07-2024 12:33-0400 Body mass index (BMI) [Ratio] 23.1 kg/m2 Usha Mcgovern PA-C Work Phone: [facility] 10-07-2024 12:33-0400 Body temperature 97.2 [degF] Usha Troncoso Work Phone: [facility] 10-07-2024 12:33-0400 Body weight 73.03 kg Usha Mcgovern PA- C Work Phone: [facility] 10-07-2024 12:33-0400 Diastolic blood pressure 60 mm[Hg] Usha Mcgovern PA-C Work Phone: [facility] 10-07-2024 12:33-0400 Heart rate 88 /min Usha Mcgovern PA- C Work Phone: [facility] 10-07-2024 12:33-0400 Respiratory rate 18 /min Usha Mcgovern PA- C Work Phone: [facility] 10-07-2024 12:33-0400 Systolic blood pressure 98 mm[Hg] Usha Mcgovern PA-C Work Phone: [facility] 09-22-2024 07:26-0400 Body mass index (BMI) [Ratio] 22.96 kg/m2 Yaw Singh MD Work Phone: [facility] 09-22-2024 07:26-0400 Body weight 72.58 kg Yaw Singh MD Work Phone: [facility] 09-22-2024 07:26-0400 Diastolic blood pressure 68 mm[Hg] Yaw Singh MD Work Phone: [facility] 09-22-2024 07:26-0400 Heart rate 104 /min Yaw Singh MD Work Phone: [facility] 09-22-2024 07:26-0400 Respiratory rate 18 /min Yaw Singh MD Work Phone: [facility] 09-22-2024 07:26-0400 SaO2% (BldA) [Mass fraction] 96 % Yaw Singh MD Work Phone: [facility] 09-22-2024 07:26-0400 Systolic blood pressure 112 mm[Hg] Yaw Singh MD Work Phone: [facility] 09-17-2024 22:19-0400 Body temperature 98.2 [degF] Dr. Yaw Yoder Work Phone: [facility] 09-17-2024 22:19-0400 Diastolic blood pressure 56 mm[Hg] Dr. Yaw Singh MD Work Phone: [facility] 09-17-2024 22:19-0400 Heart rate 74 /min Dr. Yaw Yoder Work Phone: [facility] 09-17-2024 22:19-0400 Respiratory rate 14 /min Dr. Yaw Yoder Work Phone: [facility] 09-17-2024 22:19-0400 SaO2% (BldA) [Mass fraction] 95 % Dr. Yaw Singh MD Work Phone: [facility] 09-17-2024 22:19-0400 Systolic blood pressure 101 mm[Hg] Dr. Yaw Singh MD Work Phone: [facility] 09-17-2024 17:30-0400 Body height 175.[address] Yaw Yoder Work Phone: [facility] 09-17-2024 17:30-0400 Body mass index (BMI) [Ratio] 23.6 kg/m2 Dr. Yaw Singh MD Work Phone: [facility] 09-17-2024 17:30-0400 Body weight 72.[address] Yaw Yoder Work Phone: [facility] 09-12-2024 08:41-0400 Body mass index (BMI) [Ratio] 23.34 kg/m2 Yaw Smith APRN.WILDLIFE CONSERVATION OFFICER Work Phone: [facility] 09-12-2024 08:41-0400 Body temperature 97.81 [degF] Yaw Smith APRN.WILDLIFE CONSERVATION OFFICER Work Phone: [facility] 09-12-2024 08:41-0400 Body weight 73.8 kg Yaw Smith APRN.WILDLIFE CONSERVATION OFFICER Work Phone: [facility] 09-12-2024 08:41-0400 Diastolic blood pressure 70 mm[Hg] Yaw Smith COMPUTER CONSOLE OPERATOR.WILDLIFE CONSERVATION OFFICER Work Phone: [facility] 09-12-2024 08:41-0400 Heart rate 86 /min Yaw Smith COMPUTER CONSOLE OPERATOR.WILDLIFE CONSERVATION OFFICER Work Phone: [facility] 09-12-2024 08:41-0400 Respiratory rate 18 /min Yaw Smith COMPUTER CONSOLE OPERATOR.WILDLIFE CONSERVATION OFFICER Work Phone: [facility] 09-12-2024 08:41-0400 SaO2% (BldA) [Mass fraction] 97 % Yaw Luis COMPUTER CONSOLE OPERATOR.WILDLIFE CONSERVATION OFFICER Work Phone: [facility] 09-12-2024 08:41-0400 Systolic blood pressure 118 mm[Hg] Yaw Smith COMPUTER CONSOLE OPERATOR.WILDLIFE CONSERVATION OFFICER Work Phone: [facility] 09-02-2024 13:52-0400 Body temperature 97.5 [degF] Dr. Yaw Yoder Work Phone: [facility] 09-02-2024 13:52-0400 Body weight 73.[address] Yaw Yoder Work Phone: [facility] 09-02-2024 13:52-0400 Diastolic blood pressure 71 mm[Hg] Dr. Yaw Singh MD Work Phone: [facility] 09-02-2024 13:52-0400 Heart rate 112 /min Dr. Yaw Yoder Work Phone: [facility] 09-02-2024 13:52-0400 Respiratory rate 16 /min Dr. Yaw Yoder Work Phone: [facility] 09-02-2024 13:52-0400 SaO2% (BldA) [Mass fraction] 96 % Dr. Yaw Singh MD Work Phone: [facility] 09-02-2024 13:52-0400 Systolic blood pressure 107 mm[Hg] Dr. Yaw Singh MD Work Phone: [facility] 08-20-2024 08:23-0400 Body mass index (BMI) [Ratio] 23.5 kg/m2 Steve Clutter PA-C Work Phone: [facility] 08-20-2024 08:23-0400 Body temperature 97.2 [degF] Steve Clutter PA-C Work Phone: [facility] 08-20-2024 08:23-0400 Body weight 74.3 kg Steve Clutter PA-C Work Phone: [facility] 08-20-2024 08:23-0400 Diastolic blood pressure 74 mm[Hg] Steve Clutter PA-C Work Phone: [facility] 08-20-2024 08:23-0400 Heart rate 84 /min Steve Clutter PA-C Work Phone: [facility] 08-20-2024 08:23-0400 Respiratory rate 16 /min Steve Clutter PA-C Work Phone: [facility] 08-20-2024 08:23-0400 SaO2% (BldA) [Mass fraction] 96 % Steve Clutter PA-C Work Phone: [facility] 08-20-2024 08:23-0400 Systolic blood pressure 118 mm[Hg] Steve Clutter PA-C Work Phone: [facility] 08-05-2024 12:39-0400 Body mass index (BMI) [Ratio] 23.82 kg/m2 Krislyn Aberegg PA Work Phone: [facility] 08-05-2024 12:39-0400 Body temperature 98.2 [degF] Krislyn Aberegg PA Work Phone: [facility] 08-05-2024 12:39-0400 Body weight 75.3 kg Krislyn Aberegg PA Work Phone: [facility] 08-05-2024 12:39-0400 Diastolic blood pressure 64 mm[Hg] Krislyn Aberegg PA Work Phone: [facility] 08-05-2024 12:39-0400 Heart rate 90 /min Krislyn Aberegg PA Work Phone: [facility] 08-05-2024 12:39-0400 Respiratory rate 16 /min Krislyn Aberegg PA Work Phone: [facility] 08-05-2024 12:39-0400 SaO2% (BldA) [Mass fraction] 98 % Krislyn Aberegg PA Work Phone: [facility] 08-05-2024 12:39-0400 Systolic blood pressure 122 mm[Hg] Krislyn Aberegg PA Work Phone: [facility] 07-22-2024 14:21-0400 Body temperature 98.2 [degF] Dr. Yaw Yoder Work Phone: [facility] 07-22-2024 14:21-0400 Body weight 74.[address] Yaw Yoder Work Phone: 2(201)897-779718 [place] [address] 07-22-2024 14:21-0400 Diastolic blood pressure 65 mm[Hg] Dr. Yaw Singh MD Work Phone: 0(513)386-509918 [place] [address] 07-22-2024 14:21-0400 Heart rate 86 /min Dr. Yaw Yoder Work Phone: [facility] 07-22-2024 14:21-0400 Respiratory rate 16 /min Dr. Yaw Yoder Work Phone: [facility] 07-22-2024 14:21-0400 SaO2% (BldA) [Mass fraction] 97 % Dr. Yaw Singh MD Work Phone: [facility] 07-22-2024 14:21-0400 Systolic blood pressure 103 mm[Hg] Dr. Yaw Singh MD Work Phone: 8(570)071-122418 [place] [address] 06-30-2024 13:22-0400 Body mass index (BMI) [Ratio] 23.24 kg/m2 Yaw Singh MD Work Phone: [facility] 06-30-2024 13:22-0400 Body temperature 97.7 [degF] Yaw Singh MD Work Phone: [facility] 06-30-2024 13:22-0400 Body weight 73.48 kg Yaw Singh MD Work Phone: [facility] 06-30-2024 13:22-0400 Diastolic blood pressure 74 mm[Hg] Yaw Singh MD Work Phone: [facility] 06-30-2024 13:22-0400 Heart rate 70 /min Yaw Singh MD Work Phone: [facility] 06-30-2024 13:22-0400 Respiratory rate 18 /min Yaw Singh MD Work Phone: [facility] 06-30-2024 13:22-0400 Systolic blood pressure 112 mm[Hg] Yaw Singh MD Work Phone: [facility] 06-30-2024 11:17-0400 Body temperature 98.4 [degF] Dr. Yaw Yoder Work Phone: [facility] 06-30-2024 11:17-0400 Diastolic blood pressure 73 mm[Hg] Dr. Yaw Singh MD Work Phone: [facility] 06-30-2024 11:17-0400 Heart rate 79 /min Dr. Yaw Yoder Work Phone: [facility] 06-30-2024 11:17-0400 Respiratory rate 16 /min Dr. Yaw Yoder Work Phone: [facility] 06-30-2024 11:17-0400 SaO2% (BldA) [Mass fraction] 99 % Dr. Yaw Singh MD Work Phone: [facility] 06-30-2024 11:17-0400 Systolic blood pressure 104 mm[Hg] Dr. Yaw Singh MD Work Phone: [facility] 06-30-2024 07:02-0400 Body height 175.[address] Yaw Yoder Work Phone: [facility] 06-30-2024 07:02-0400 Body mass index (BMI) [Ratio] 23.8 kg/m2 Dr. Yaw Singh MD Work Phone: [facility] 06-30-2024 07:02-0400 Body weight 73.[address] Yaw Yoder Work Phone: [facility] 06-11-2024 08:10-0500 Body height 177.8 cm [facility] Work Phone: [facility] 06-11-2024 08:10-0500 Body mass index (BMI) [Ratio] 23.38 kg/m2 [facility] Work Phone: [facility] 06-11-2024 08:10-0500 Body temperature 98.49 [degF] [facility] Work Phone: [facility] 06-11-2024 08:10-0500 Body weight 73.9 kg [facility] Work Phone: [facility] 06-11-2024 08:10-0500 Diastolic blood pressure 76 mm[Hg] [facility] Work Phone: [facility] 06-11-2024 08:10-0500 Heart rate 93 /min [facility] Work Phone: [facility] 06-11-2024 08:10-0500 SaO2% (BldA) [Mass fraction] 99 % [facility] Work Phone: [facility] 06-11-2024 08:10-0500 Systolic blood pressure 128 mm[Hg] [facility] Work Phone: [facility] 06-11-2024 08:07-0500 Body height 177.8 cm [facility] Work Phone: [facility] 06-11-2024 08:07-0500 Body mass index (BMI) [Ratio] 23.38 kg/m2 [facility] Work Phone: [facility] 06-11-2024 08:07-0500 Body temperature 98.49 [degF] [facility] Work Phone: [facility] 06-11-2024 08:07-0500 Body weight 73.9 kg [facility] Work Phone: [facility] 06-11-2024 08:07-0500 Diastolic blood pressure 76 mm[Hg] [facility] Work Phone: [facility] 06-11-2024 08:07-0500 Heart rate 93 /min [facility] Work Phone: [facility] 06-11-2024 08:07-0500 SaO2% (BldA) [Mass fraction] 98 % [facility] Work Phone: [facility] 06-11-2024 08:07-0500 Systolic blood pressure 128 mm[Hg] [facility] Work Phone: [facility] 05-07-2024 08:28-0500 Body mass index (BMI) [Ratio] 23.5 kg/m2 Edwin Montes COMPUTER CONSOLE OPERATOR.WILDLIFE CONSERVATION OFFICER Work Phone: [facility] 05-07-2024 08:28-0500 Body temperature 97.7 [degF] Edwin Montes COMPUTER CONSOLE OPERATOR.WILDLIFE CONSERVATION OFFICER Work Phone: [facility] 05-07-2024 08:28-0500 Body weight 74.3 kg Edwin Montes COMPUTER CONSOLE OPERATOR.WILDLIFE CONSERVATION OFFICER Work Phone: [facility] 05-07-2024 08:28-0500 Diastolic blood pressure 78 mm[Hg] Edwin Montes COMPUTER CONSOLE OPERATOR.WILDLIFE CONSERVATION OFFICER Work Phone: [facility] 05-07-2024 08:28-0500 Heart rate 117 /min Edwin Montes COMPUTER CONSOLE OPERATOR.WILDLIFE CONSERVATION OFFICER Work Phone: [facility] 05-07-2024 08:28-0500 Respiratory rate 16 /min Edwin Montes COMPUTER CONSOLE OPERATOR.WILDLIFE CONSERVATION OFFICER Work Phone: [facility] 05-07-2024 08:28-0500 SaO2% (BldA) [Mass fraction] 98 % Edwin Montes COMPUTER CONSOLE OPERATOR.WILDLIFE CONSERVATION OFFICER Work Phone: [facility] 05-07-2024 08:28-0500 Systolic blood pressure 118 mm[Hg] Edwin Montes ADALGISA.WILDLIFE CONSERVATION OFFICER Work Phone: [facility] 05-02-2024 15:29-0500 Body mass index (BMI) [Ratio] 23.1 kg/m2 Richard Masci DO Work Phone: [facility] 05-02-2024 15:29-0500 Body temperature 98.4 [degF] Richard Masci DO Work Phone: [facility] 05-02-2024 15:29-0500 Body weight 73.03 kg Richard Masci DO Work Phone: [facility] 05-02-2024 15:29-0500 Diastolic blood pressure 82 mm[Hg] Richard Masci DO Work Phone: [facility] 05-02-2024 15:29-0500 Heart rate 77 /min Richard Masci DO Work Phone: [facility] 05-02-2024 15:29-0500 SaO2% (BldA) [Mass fraction] 95 % Richard Masci DO Work Phone: [facility] 05-02-2024 15:29-0500 Systolic blood pressure 129 mm[Hg] Richard Masci DO Work Phone: [facility] 04-29-2024 13:43-0500 Body height 177.[address] Yaw Yoder Work Phone: [facility] 04-29-2024 13:43-0500 Body mass index (BMI) [Ratio] 22.5 kg/m2 Dr. Yaw Singh MD Work Phone: [facility] 04-29-2024 13:43-0500 Body weight 71.[address] Yaw Yoder Work Phone: [facility] 04-29-2024 13:43-0500 Diastolic blood pressure 69 mm[Hg] Dr. Yaw Singh MD Work Phone: 0(193)173-316545 [place] [address] 04-29-2024 13:43-0500 Heart rate 96 /min Dr. Yaw Yoder Work Phone: 9(112)466-841445 [place] [address] 04-29-2024 13:43-0500 Respiratory rate 16 /min Dr. Yaw Yoder Work Phone: 5(084)145-546845 [place] [address] 04-29-2024 13:43-0500 Systolic blood pressure 98 mm[Hg] Dr. Yaw Singh MD Work Phone: 5(359)667-764445 [place] [address] 04-28-2024 14:24-0500 Body temperature 97.7 [degF] Dr. Yaw Yoder Work Phone: 5(034)272-346245 [place] [address] 04-28-2024 14:24-0500 Body weight 72.[address] Yaw Yoder Work Phone: 8(473)203-549245 [place] [address] 04-28-2024 14:24-0500 Diastolic blood pressure 73 mm[Hg] Dr. Yaw Singh MD Work Phone: 3(329)198-844745 [place] [address] 04-28-2024 14:24-0500 Heart rate 77 /min Dr. Yaw Yoder Work Phone: 2(441)918-471345 [place] [address] 04-28-2024 14:24-0500 Respiratory rate 16 /min Dr. Yaw Yoder Work Phone: 2(874)272-038445 [place] [address] 04-28-2024 14:24-0500 SaO2% (BldA) [Mass fraction] 98 % Dr. Yaw Singh MD Work Phone: 1(935)714-105545 [place] [address] 04-28-2024 14:24-0500 Systolic blood pressure 115 mm[Hg] Dr. Yaw Singh MD Work Phone: 5(803)034-293145 [place] [address] 03-11-2024 10:00-0500 Body height 177.8 cm Yaw Singh MD Work Phone: 3(680)570-410011 [place] [address] 03-11-2024 10:00-0500 Body mass index (BMI) [Ratio] 22.53 kg/m2 Yaw Singh MD Work Phone: [facility] 03-11-2024 10:00-0500 Body weight 71.22 kg Yaw Singh MD Work Phone: [facility] 03-11-2024 10:00-0500 Diastolic blood pressure 76 mm[Hg] Yaw Singh MD Work Phone: [facility] 03-11-2024 10:00-0500 Heart rate 94 /min Yaw Singh MD Work Phone: [facility] 03-11-2024 10:00-0500 Respiratory rate 16 /min Yaw Singh MD Work Phone: [facility] 03-11-2024 10:00-0500 Systolic blood pressure 120 mm[Hg] Yaw Singh MD Work Phone: [facility] 01-31-2024 09:28-0400 Body height 177.8 cm Zachary Seabold COMPUTER CONSOLE OPERATOR.WILDLIFE CONSERVATION OFFICER Work Phone: [facility] 01-31-2024 09:28-0400 Body mass index (BMI) [Ratio] 22.24 kg/m2 Zachary Seabold COMPUTER CONSOLE OPERATOR.WILDLIFE CONSERVATION OFFICER Work Phone: [facility] 01-31-2024 09:28-0400 Body temperature 97.7 [degF] Zachary Seabold COMPUTER CONSOLE OPERATOR.WILDLIFE CONSERVATION OFFICER Work Phone: [facility] 01-31-2024 09:28-0400 Body weight 70.31 kg Zachray Seabold COMPUTER CONSOLE OPERATOR.WILDLIFE CONSERVATION OFFICER Work Phone: [facility] 01-31-2024 09:28-0400 Diastolic blood pressure 71 mm[Hg] Zachary Seabold COMPUTER CONSOLE OPERATOR.WILDLIFE CONSERVATION OFFICER Work Phone: [facility] 01-31-2024 09:28-0400 Heart rate 89 /min Zachary Seabold COMPUTER CONSOLE OPERATOR.WILDLIFE CONSERVATION OFFICER Work Phone: [facility] 01-31-2024 09:28-0400 Respiratory rate 24 /min Zachary Seabold COMPUTER CONSOLE OPERATOR.WILDLIFE CONSERVATION OFFICER Work Phone: [facility] 01-31-2024 09:28-0400 SaO2% (BldA) [Mass fraction] 100 % Zachary Seabold COMPUTER CONSOLE OPERATOR.WILDLIFE CONSERVATION OFFICER Work Phone: [facility] 01-31-2024 09:28-0400 Systolic blood pressure 103 mm[Hg] Zachary Seabold COMPUTER CONSOLE OPERATOR.WILDLIFE CONSERVATION OFFICER Work Phone: [facility] 01-17-2024 10:38-0400 Body height 175.3 cm Yaw Singh MD Work Phone: [facility] 01-17-2024 10:38-0400 Body mass index (BMI) [Ratio] 23.48 kg/m2 Yaw Singh MD Work Phone: [facility] 01-17-2024 10:38-0400 Body weight 72.12 kg Yaw Singh MD Work Phone: [facility] 01-17-2024 10:38-0400 Diastolic blood pressure 67 mm[Hg] Yaw Singh MD Work Phone: [facility] 01-17-2024 10:38-0400 Heart rate 76 /min Yaw Singh MD Work Phone: [facility] 01-17-2024 10:38-0400 Systolic blood pressure 104 mm[Hg] Yaw Singh MD Work Phone: [facility] 01-15-2024 09:09-0400 Body mass index (BMI) [Ratio] 23.48 kg/m2 Richard Jenkins DO Work Phone: [facility] 01-15-2024 09:09-0400 Body temperature 97.81 [degF] Richard Jenkins DO Work Phone: [facility] 01-15-2024 09:09-0400 Body weight 72.12 kg Richard Jenkins DO Work Phone: [facility] 01-15-2024 09:09-0400 Diastolic blood pressure 80 mm[Hg] Richard Masci DO Work Phone: [facility] 01-15-2024 09:09-0400 Heart rate 91 /min Richard Mendezi DO Work Phone: [facility] 01-15-2024 09:09-0400 SaO2% (BldA) [Mass fraction] 98 % Richard Mendezi DO Work Phone: [facility] 01-15-2024 09:09-0400 Systolic blood pressure 111 mm[Hg] Richard Mendezi DO Work Phone: [facility] 01-03-2024 11:45-0400 Diastolic blood pressure 68 mm[Hg] Yaw Singh MD Work Phone: [facility] 01-03-2024 11:45-0400 Systolic blood pressure 100 mm[Hg] Yaw Singh MD Work Phone: [facility] 01-03-2024 11:05-0400 Body height 175.3 cm Yaw Singh MD Work Phone: [facility] 01-03-2024 11:05-0400 Body mass index (BMI) [Ratio] 25.31 kg/m2 Yaw Singh MD Work Phone: [facility] 01-03-2024 11:05-0400 Body weight 77.75 kg Yaw Singh MD Work Phone: [facility] 01-03-2024 11:05-0400 Heart rate 75 /min Yaw Singh MD Work Phone: [facility] 10-09-2023 08:29-0400 Body height 177.2 cm Helen Blair MD Work Phone: [facility] 10-09-2023 08:29-0400 Body mass index (BMI) [Ratio] 28.76 kg/m2 Helen Blair MD Work Phone: [facility] 10-09-2023 08:29-0400 Body temperature 98.01 [degF] Helen Blair MD Work Phone: [facility] 10-09-2023 08:29-0400 Body weight 90.27 kg Helen Blair MD Work Phone: [facility] 10-09-2023 08:29-0400 Diastolic blood pressure 87 mm[Hg] Helen Blair MD Work Phone: [facility] 10-09-2023 08:29-0400 Heart rate 75 /min Helen Blair MD Work Phone: [facility] 10-09-2023 08:29-0400 Respiratory rate 18 /min Helen Blair MD Work Phone: [facility] 10-09-2023 08:29-0400 SaO2% (BldA) [Mass fraction] 96 % Helen Blair MD Work Phone: [facility] 10-09-2023 08:29-0400 Systolic blood pressure 133 mm[Hg] Helen Blair MD Work Phone: [facility] 10-05-2023 09:55-0400 Body mass index (BMI) [Ratio] 28.9 kg/m2 Yaw Singh MD Work Phone: [facility] 10-05-2023 09:55-0400 Body weight 90.72 kg Yaw Singh MD Work Phone: [facility] 10-05-2023 09:55-0400 Diastolic blood pressure 82 mm[Hg] Yaw Singh MD Work Phone: [facility] 10-05-2023 09:55-0400 Heart rate 80 /min Yaw Singh MD Work Phone: [facility] 10-05-2023 09:55-0400 Respiratory rate 20 /min Yaw Singh MD Work Phone: [facility] 10-05-2023 09:55-0400 Systolic blood pressure 124 mm[Hg] Yaw Singh MD Work Phone: [facility] 09-13-2023 07:11-0400 Body mass index (BMI) [Ratio] 28.04 kg/m2 Usha Mcgovern PA-C Work Phone: [facility] 09-13-2023 07:11-0400 Body temperature 97.59 [degF] Usha Mcgovern PA- C Work Phone: [facility] 09-13-2023 07:11-0400 Body weight 88 kg Usha Mcgovern PA- C Work Phone: [facility] 09-13-2023 07:11-0400 Diastolic blood pressure 76 mm[Hg] Usha Mcgovern PA-C Work Phone: [facility] 09-13-2023 07:11-0400 Heart rate 85 /min Usha Mcgovern PA- C Work Phone: [facility] 09-13-2023 07:11-0400 Respiratory rate 16 /min Usha Mcgovern PA- C Work Phone: [facility] 09-13-2023 07:11-0400 SaO2% (BldA) [Mass fraction] 99 % Usha Mcgovern PA-C Work Phone: [facility] 09-13-2023 07:11-0400 Systolic blood pressure 114 mm[Hg] Usha Mcgovern PA-C Work Phone: [facility] 08-10-2023 09:44-0400 Body mass index (BMI) [Ratio] 28.33 kg/m2 Richard Goi DO Work Phone: [facility] 08-10-2023 09:44-0400 Body temperature 99.19 [degF] Richard Masci DO Work Phone: [facility] 08-10-2023 09:44-0400 Body weight 88.91 kg Richard Masci DO Work Phone: [facility] 08-10-2023 09:44-0400 Diastolic blood pressure 80 mm[Hg] Richard Masci DO Work Phone: [facility] 08-10-2023 09:44-0400 Heart rate 71 /min Richard Masci DO Work Phone: [facility] 08-10-2023 09:44-0400 SaO2% (BldA) [Mass fraction] 97 % Richard Mendezi DO Work Phone: [facility] 08-10-2023 09:44-0400 Systolic blood pressure 136 mm[Hg] Richard Mendezi DO Work Phone: [facility] 07-12-2023 10:34-0400 Body height 177.2 cm Jesus Manuel Resendiz PA-C Work Phone: [facility] 07-12-2023 10:34-0400 Body weight 88 kg Jesus Manuel Resendiz PA-C Work Phone: [facility] 07-12-2023 10:34-0400 Diastolic blood pressure 69 mm[Hg] Jesus Manuel Resendiz PA-C Work Phone: [facility] 07-12-2023 10:34-0400 Heart rate 77 /min Jesus Manuel Resendiz PA-C Work Phone: [facility] 07-12-2023 10:34-0400 SaO2% (BldA) [Mass fraction] 100 % Jesus Manuel Resendiz PA-C Work Phone: [facility] 07-12-2023 10:34-0400 Systolic blood pressure 124 mm[Hg] Jesus Manuel Resendiz PA-C Work Phone: [facility] 06-19-2023 06:52-0400 Body temperature 97.11 [degF] Usha Mcgovern PA- C Work Phone: [facility] 06-19-2023 06:52-0400 Body weight 88 kg Usha Mcgovern PA- C Work Phone: [facility] 06-19-2023 06:52-0400 Diastolic blood pressure 82 mm[Hg] Usha Mcgovern PA-C Work Phone: [facility] 06-19-2023 06:52-0400 Heart rate 70 /min Usha Mcgovern PA- C Work Phone: [facility] 06-19-2023 06:52-0400 Respiratory rate 18 /min Usha Mcgovern PA- C Work Phone: [facility] 06-19-2023 06:52-0400 Systolic blood pressure 122 mm[Hg] Usha Mcgovern PA-C Work Phone: [facility] 06-05-2023 14:51-0500 Diastolic blood pressure 85 mm[Hg] Amos Rangel MD Work Phone: [facility] 06-05-2023 14:51-0500 Heart rate 72 /min Amos Rangel MD Work Phone: [facility] 06-05-2023 14:51-0500 Respiratory rate 26 /min Amos Rangel MD Work Phone: [facility] 06-05-2023 14:51-0500 SaO2% (BldA) [Mass fraction] 95 % Amos Rangel MD Work Phone: [facility] 06-05-2023 14:51-0500 Systolic blood pressure 132 mm[Hg] Amos Rangel MD Work Phone: [facility] 06-05-2023 14:32-0500 Body temperature 97.9 [degF] Amos Rangel MD Work Phone: [facility] 06-05-2023 12:25-0500 Body height 175.3 cm Amos Rangel MD Work Phone: [facility] 06-05-2023 12:25-0500 Body weight 87.54 kg Amos Rangel MD Work Phone: [facility] 02-27-2023 14:48-0500 Body temperature 97.11 [degF] Olvera COMPUTER CONSOLE OPERATOR.WILDLIFE CONSERVATION OFFICER Work Phone: [facility] 02-27-2023 14:48-0500 Body weight 88.36 kg Olvera COMPUTER CONSOLE OPERATOR.WILDLIFE CONSERVATION OFFICER Work Phone: [facility] 02-27-2023 14:48-0500 Diastolic blood pressure 84 mm[Hg] Olvera COMPUTER CONSOLE OPERATOR.WILDLIFE CONSERVATION OFFICER Work Phone: [facility] 02-27-2023 14:48-0500 Heart rate 67 /min Olvera COMPUTER CONSOLE OPERATOR.WILDLIFE CONSERVATION OFFICER Work Phone: [facility] 02-27-2023 14:48-0500 Respiratory rate 16 /min Olvera COMPUTER CONSOLE OPERATOR.WILDLIFE CONSERVATION OFFICER Work Phone: [facility] 02-27-2023 14:48-0500 SaO2% (BldA) [Mass fraction] 98 % Olvera COMPUTER CONSOLE OPERATOR.WILDLIFE CONSERVATION OFFICER Work Phone: [facility] 02-27-2023 14:48-0500 Systolic blood pressure 152 mm[Hg] Olvera COMPUTER CONSOLE OPERATOR.WILDLIFE CONSERVATION OFFICER Work Phone: [facility] 08-22-2022 08:08-0400 Body temperature 97.9 [degF] Richard Masci DO Work Phone: [facility] 08-22-2022 08:08-0400 Body weight 85.28 kg Richard Masci DO Work Phone: [facility] 08-22-2022 08:08-0400 Diastolic blood pressure 80 mm[Hg] Richard Masci DO Work Phone: [facility] 08-22-2022 08:08-0400 Heart rate 70 /min Richard Masci DO Work Phone: [facility] 08-22-2022 08:08-0400 SaO2% (BldA) [Mass fraction] 99 % Richard Masci DO Work Phone: [facility] 08-22-2022 08:08-0400 Systolic blood pressure 135 mm[Hg] Richard Masci DO Work Phone: [facility] 08-09-2022 12:35-0400 Body temperature 97.81 [degF] Usha Troncoso Work Phone: [facility] 08-09-2022 12:35-0400 Body weight 87.09 kg Usha Troncoso Work Phone: [facility] 08-09-2022 12:35-0400 Diastolic blood pressure 78 mm[Hg] Usha Mcgovern PA-C Work Phone: [facility] 08-09-2022 12:35-0400 Heart rate 72 /min Usha Mcgovern PA- C Work Phone: [facility] 08-09-2022 12:35-0400 Respiratory rate 16 /min Usha Mcgovern PA- C Work Phone: [facility] 08-09-2022 12:35-0400 Systolic blood pressure 122 mm[Hg] Usha Mcgovern PA-C Work Phone: [facility] 08-02-2022 13:42-0400 Body height 177 cm Season Gilbert DIANA.WILDLIFE CONSERVATION OFFICER Work Phone: [facility] 08-02-2022 13:42-0400 Body temperature 98.2 [degF] Season Gilbert DIANA.WILDLIFE CONSERVATION OFFICER Work Phone: [facility] 08-02-2022 13:42-0400 Body weight 84.5 kg Season Gilbert DIANA.WILDLIFE CONSERVATION OFFICER Work Phone: [facility] 08-02-2022 13:42-0400 Diastolic blood pressure 80 mm[Hg] Season Gilbert DIANA.WILDLIFE CONSERVATION OFFICER Work Phone: [facility] 08-02-2022 13:42-0400 Heart rate 57 /min Season Gilbert DIANA.WILDLIFE CONSERVATION OFFICER Work Phone: [facility] 08-02-2022 13:42-0400 SaO2% (BldA) [Mass fraction] 95 % Season Gilbert DIANA.WILDLIFE CONSERVATION OFFICER Work Phone: [facility] 08-02-2022 13:42-0400 Systolic blood pressure 138 mm[Hg] Season Gilbert DIANA.WILDLIFE CONSERVATION OFFICER Work Phone: [facility] 08-02-2022 12:30-0400 Diastolic blood pressure 79 mm[Hg] Francesca Vazquez MD Work Phone: [facility] 08-02-2022 12:30-0400 Heart rate 65 /min Francesca Vazquez MD Work Phone: [facility] 08-02-2022 12:30-0400 Respiratory rate 16 /min Francesca Vazquez MD Work Phone: [facility] 08-02-2022 12:30-0400 SaO2% (BldA) [Mass fraction] 96 % Francesca Vazquez MD Work Phone: [facility] 08-02-2022 12:30-0400 Systolic blood pressure 120 mm[Hg] Francesca Vazquez MD Work Phone: [facility] 08-02-2022 12:03-0400 Body temperature 97.3 [degF] Francesca Vazquez MD Work Phone: [facility] 06-23-2022 18:06-0400 Heart rate 73 /min Dr. Yaw Singh Work Phone: [facility] 06-23-2022 18:06-0400 Respiratory rate 18 /min Dr. Yaw Singh Work Phone: [facility] 06-23-2022 18:06-0400 SaO2% (BldA) [Mass fraction] 93 % Dr. Yaw Singh Work Phone: [facility] 06-23-2022 14:56-0400 Body height 177.[address] Yaw Singh Work Phone: [facility] 06-23-2022 14:56-0400 Body mass index (BMI) [Ratio] 23.4 kg/m2 Dr. Yaw Singh Work Phone: [facility] 06-23-2022 14:56-0400 Body temperature 97.8 [degF] Dr. Yaw Singh Work Phone: [facility] 06-23-2022 14:56-0400 Body weight 74.[address] Yaw Singh Work Phone: [facility] 06-23-2022 14:56-0400 Diastolic blood pressure 71 mm[Hg] Dr. Yaw Singh Work Phone: [facility] 06-23-2022 14:56-0400 Systolic blood pressure 124 mm[Hg] Dr. Yaw Singh Work Phone: [facility] 06-09-2022 14:46-0500 Body temperature 96.8 [degF] Yaw Matsonday [facility] COMPUTER CONSOLE OPERATOR.WILDLIFE CONSERVATION OFFICER Work Phone: [facility] 06-09-2022 14:46-0500 Body weight 90.72 kg Yaw Matsonchuck COMPUTER CONSOLE OPERATOR.WILDLIFE CONSERVATION OFFICER Work Phone: [facility] 06-09-2022 14:46-0500 [facility] blood pressure 80 mm[facility]Hg[facility] COM[facility] CONSOLE OPERATOR.WILDLIFE CONSERVATION OFFICER Work Phone: [facility] 06-09-2022 14:46-0500 Heart rate 70 /min Yaw Matsonchuck COMPUTER CONSOLE OPERATOR.WILDLIFE CONSERVATION OFFICER Work Phone: [facility] 06-09-2022 14:46-0500 [facility]piratory rate 18 /[facility] COMPUTER CONSOLE OPERATOR.WILDLIFE CONSERVATION OFFICER Work Phone: [facility] 06-09-2022 14:46-0500 SaO2% (BldA) [Mass fraction] 96 % Yaw [facility] COMPUTER CONSOLE OPERATOR.WILDLIFE CONSERVATION OFFICER Work Phone: [facility] 06-09-2022 14:46-0500 Systolic blood pressure 120 mm[Hg] Yaw [facility] COMPUTER CONSOLE OPERATOR.WILDLIFE CONSERVATION OFFICER Work Phone: [facility] 05-15-2022 08:33-0500 Body mass index (BMI) [Ratio] 27.6 kg/m2 Dr. Yaw Singh Work Phone: [facility] 05-15-2022 08:33-0500 Body weight 87.[address] Yaw Singh Work Phone: [facility] 05-15-2022 08:33-0500 Diastolic blood pressure 95 mm[Hg] Dr. Yaw Singh Work Phone: [facility] 05-15-2022 08:33-0500 Heart rate 63 /min Dr. Yaw Singh Work Phone: [facility] 05-15-2022 08:33-0500 Respiratory rate 18 /min Dr. Yaw Singh Work Phone: [facility] 05-15-2022 08:33-0500 SaO2% (BldA) [Mass fraction] 97 % Dr. Yaw Singh Work Phone: [facility] 05-15-2022 08:33-0500 Systolic blood pressure 149 mm[Hg] Dr. Yaw Singh Work Phone: [facility] 03-17-2022 13:33-0500 Body temperature 97.81 [degF] Dana Callow COMPUTER CONSOLE OPERATOR.CN P Work Phone: [facility] 03-17-2022 13:33-0500 Body weight 88 kg Dana Callow COMPUTER CONSOLE OPERATOR.CN P Work Phone: [facility] 03-17-2022 13:33-0500 Diastolic blood pressure 74 mm[Hg] Dana Callow COMPUTER CONSOLE OPERATOR.WILDLIFE CONSERVATION OFFICER Work Phone: [facility] 03-17-2022 13:33-0500 Heart rate 63 /min Dana Callow COMPUTER CONSOLE OPERATOR.CN P Work Phone: [facility] 03-17-2022 13:33-0500 Respiratory rate 16 /min Dana Callow COMPUTER CONSOLE OPERATOR.CN P Work Phone: [facility] 03-17-2022 13:33-0500 SaO2% (BldA) [Mass fraction] 98 % Dana Callow COMPUTER CONSOLE OPERATOR.WILDLIFE CONSERVATION OFFICER Work Phone: [facility] 03-17-2022 13:33-0500 Systolic blood pressure 126 mm[Hg] Dana Callow COMPUTER CONSOLE OPERATOR.WILDLIFE CONSERVATION OFFICER Work Phone: [facility] 02-22-2022 08:26-0500 Diastolic blood pressure 84 mm[Hg] Mari Akhtar COMPUTER CONSOLE OPERATOR.WILDLIFE CONSERVATION OFFICER Work Phone: [facility] 02-22-2022 08:26-0500 Heart rate 63 /min Mari Akhtar COMPUTER CONSOLE OPERATOR.WILDLIFE CONSERVATION OFFICER Work Phone: [facility] 02-22-2022 08:26-0500 Systolic blood pressure 120 mm[Hg] Mari Akhtar COMPUTER CONSOLE OPERATOR.WILDLIFE CONSERVATION OFFICER Work Phone: [facility] 02-22-2022 07:59-0500 Body temperature 97.9 [degF] Mari Akhtar COMPUTER CONSOLE OPERATOR.WILDLIFE CONSERVATION OFFICER Work Phone: [facility] 02-22-2022 07:59-0500 Body weight 85.5 kg Mari Solorzanoenter COMPUTER CONSOLE OPERATOR.WILDLIFE CONSERVATION OFFICER Work Phone: [facility] 02-22-2022 07:59-0500 SaO2% (BldA) [Mass fraction] 99 % Cody Akhtar COMPUTER CONSOLE OPERATOR.WILDLIFE CONSERVATION OFFICER Work Phone: [facility] 02-09-2022 12:05-0400 Body height 174 cm Yaw Singh MD Work Phone: [facility] 02-09-2022 12:05-0400 Body weight 83.01 kg Yaw Singh MD Work Phone: [facility] 02-09-2022 12:05-0400 Diastolic blood pressure 78 mm[Hg] Yaw Singh MD Work Phone: [facility] 02-09-2022 12:05-0400 Heart rate 72 /min Yaw Singh MD Work Phone: [facility] 02-09-2022 12:05-0400 Respiratory rate 16 /min Yaw Singh MD Work Phone: [facility] 02-09-2022 12:05-0400 Systolic blood pressure 122 mm[Hg] Yaw Singh MD Work Phone: [facility] 12-01-2021 09:33-0400 Body temperature 98.8 [degF] Cody Akhtar COMPUTER CONSOLE OPERATOR.WILDLIFE CONSERVATION OFFICER Work Phone: [facility] 12-01-2021 09:33-0400 Body weight 83.92 kg Mari Akhtar COMPUTER CONSOLE OPERATOR.WILDLIFE CONSERVATION OFFICER Work Phone: [facility] 12-01-2021 09:33-0400 Diastolic blood pressure 90 mm[Hg] Mari Akhtar COMPUTER CONSOLE OPERATOR.WILDLIFE CONSERVATION OFFICER Work Phone: [facility] 12-01-2021 09:33-0400 Heart rate 72 /min Cody Akhtar COMPUTER CONSOLE OPERATOR.WILDLIFE CONSERVATION OFFICER Work Phone: [facility] 12-01-2021 09:33-0400 Systolic blood pressure 126 mm[Hg] Mari Akhtar COMPUTER CONSOLE OPERATOR.WILDLIFE CONSERVATION OFFICER Work Phone: [facility] 11-09-2021 12:59-0400 Body height 177.8 cm Season Sunland COMPUTER CONSOLE OPERATOR.WILDLIFE CONSERVATION OFFICER Work Phone: [facility] 11-09-2021 12:59-0400 Body temperature 97.7 [degF] Season Sunland COMPUTER CONSOLE OPERATOR.WILDLIFE CONSERVATION OFFICER Work Phone: [facility] 11-09-2021 12:59-0400 Body weight 83.46 kg Season Sunland COMPUTER CONSOLE OPERATOR.WILDLIFE CONSERVATION OFFICER Work Phone: [facility] 11-09-2021 12:59-0400 Diastolic blood pressure 82 mm[Hg] Season Sunland COMPUTER CONSOLE OPERATOR.WILDLIFE CONSERVATION OFFICER Work Phone: [facility] 11-09-2021 12:59-0400 Heart rate 60 /min Season Sunland COMPUTER CONSOLE OPERATOR.WILDLIFE CONSERVATION OFFICER Work Phone: [facility] 11-09-2021 12:59-0400 Respiratory rate 16 /min Season Rosibel COMPUTER CONSOLE OPERATOR.WILDLIFE CONSERVATION OFFICER Work Phone: [facility] 11-09-2021 12:59-0400 SaO2% (BldA) [Mass fraction] 99 % Season Rosibel COMPUTER CONSOLE OPERATOR.WILDLIFE CONSERVATION OFFICER Work Phone: [facility] 11-09-2021 12:59-0400 Systolic blood pressure 135 mm[Hg] Season Sunland COMPUTER CONSOLE OPERATOR.WILDLIFE CONSERVATION OFFICER Work Phone: [facility] 11-09-2021 12:30-0400 Diastolic blood pressure 82 mm[Hg] Francesca Vazquez MD Work Phone: [facility] 11-09-2021 12:30-0400 Heart rate 63 /min Francesca Vazquez MD Work Phone: [facility] 11-09-2021 12:30-0400 Respiratory rate 16 /min Francesca Vazquez MD Work Phone: [facility] 11-09-2021 12:30-0400 SaO2% (BldA) [Mass fraction] 98 % Francesca Vazquez MD Work Phone: [facility] 11-09-2021 12:30-0400 Systolic blood pressure 130 mm[Hg] Francesca Vazquez MD Work Phone: [facility] 11-09-2021 12:06-0400 Body temperature 97.3 [degF] Francesca Vazquez MD Work Phone: [facility] 11-09-2021 11:36-0400 Body height 177.8 cm Francesca Vazquez MD Work Phone: [facility] 11-09-2021 11:36-0400 Body weight 83.92 kg Francesca Vazquez MD Work Phone: [facility] 11-02-2021 10:35-0400 Body temperature 98.29 [degF] Richard Masci DO Work Phone: [facility] 11-02-2021 10:35-0400 Body weight 84.14 kg Richard Masci DO Work Phone: [facility] 11-02-2021 10:35-0400 Diastolic blood pressure 86 mm[Hg] Richard Masci DO Work Phone: [facility] 11-02-2021 10:35-0400 Heart rate 71 /min Richard Masci DO Work Phone: [facility] 11-02-2021 10:35-0400 SaO2% (BldA) [Mass fraction] 96 % Richard Masci DO Work Phone: [facility] 11-02-2021 10:35-0400 Systolic blood pressure 130 mm[Hg] Richard Masci DO Work Phone: [facility] 10-20-2021 13:35-0400 Body temperature 98.2 [degF] Treatment [facility]str Work Phone: [facility] 10-20-2021 13:35-0400 Body weight 83.23 kg Treatment [facility] Work Phone: [facility] 10-20-2021 13:35-0400 Diastolic blood pressure 80 mm[Hg] [facility] Work Phone: [facility] 10-20-2021 13:35-0400 Heart rate 105 /min [facility] Work Phone: [facility] 10-20-2021 13:35-0400 Systolic blood pressure 126 mm[Hg] Treatment [facility] Work Phone: [facility] 10-05-2021 09:35-0400 Body height 175.3 cm Richard Masci DO Work Phone: [facility] 10-05-2021 09:35-0400 Body temperature 98.01 [degF] Richard Masci DO Work Phone: [facility] 10-05-2021 09:35-0400 Body weight 82.78 kg Richard Masci DO Work Phone: [facility] 10-05-2021 09:35-0400 Diastolic blood pressure 68 mm[Hg] Richard Masci DO Work Phone: [facility] 10-05-2021 09:35-0400 Heart rate 66 /min Richard Masci DO Work Phone: [facility] 10-05-2021 09:35-0400 SaO2% (BldA) [Mass fraction] 98 % Richard Masci DO Work Phone: [facility] 10-05-2021 09:35-0400 Systolic blood pressure 132 mm[Hg] Richard Masci DO Work Phone: [facility] 09-08-2021 14:01-0400 Body temperature 97.59 [degF] Treatment Wstr Work Phone: [facility] 09-08-2021 14:01-0400 Body weight 81.19 kg Treatment Wstr Work Phone: [facility] 09-08-2021 14:01-0400 Diastolic blood pressure 70 mm[Hg] Treatment Wstr Work Phone: [facility] 09-08-2021 14:01-0400 Heart rate 66 /min Treatment Wstr Work Phone: [facility] 09-08-2021 14:01-0400 Systolic blood pressure 109 mm[Hg] Treatment Wstr Work Phone: [facility] 09-07-2021 14:03-0400 Body height 170.2 cm Season Sunland COMPUTER CONSOLE OPERATOR.WILDLIFE CONSERVATION OFFICER Work Phone: [facility] 09-07-2021 14:03-0400 Body temperature 98.1 [degF] Season Sunland COMPUTER CONSOLE OPERATOR.WILDLIFE CONSERVATION OFFICER Work Phone: [facility] 09-07-2021 14:03-0400 Body weight 79.29 kg Season Sunland COMPUTER CONSOLE OPERATOR.WILDLIFE CONSERVATION OFFICER Work Phone: [facility] 09-07-2021 14:03-0400 Diastolic blood pressure 74 mm[Hg] Season Rosibel COMPUTER CONSOLE OPERATOR.WILDLIFE CONSERVATION OFFICER Work Phone: [facility] 09-07-2021 14:03-0400 Heart rate 56 /min Season Sunland COMPUTER CONSOLE OPERATOR.WILDLIFE CONSERVATION OFFICER Work Phone: [facility] 09-07-2021 14:03-0400 SaO2% (BldA) [Mass fraction] 98 % Season Sunland COMPUTER CONSOLE OPERATOR.WILDLIFE CONSERVATION OFFICER Work Phone: [facility] 09-07-2021 14:03-0400 Systolic blood pressure 136 mm[Hg] Season Sunland COMPUTER CONSOLE OPERATOR.WILDLIFE CONSERVATION OFFICER Work Phone: [facility] 09-07-2021 13:35-0400 Diastolic blood pressure 81 mm[Hg] Francesca Vazquez MD Work Phone: [facility] 09-07-2021 13:35-0400 Heart rate 67 /min Francesca Vazquez MD Work Phone: [facility] 09-07-2021 13:35-0400 Respiratory rate 16 /min Francesca Vazquez MD Work Phone: [facility] 09-07-2021 13:35-0400 SaO2% (BldA) [Mass fraction] 97 % Francesca Vazquez MD Work Phone: [facility] 09-07-2021 13:35-0400 Systolic blood pressure 137 mm[Hg] Francesca Vazquez MD Work Phone: [facility] 09-07-2021 13:10-0400 Body temperature 97.7 [degF] Francesca Vazquez MD Work Phone: [facility] 09-07-2021 11:22-0400 Body height 177.8 cm Francesca Vazquez MD Work Phone: [facility] 09-07-2021 11:22-0400 Body weight 81.65 kg Francesca Vazquez MD Work Phone: [facility] 08-25-2021 15:16-0400 Body temperature 97.11 [degF] Treatment Wstr Work Phone: [facility] 08-25-2021 15:16-0400 Diastolic blood pressure 78 mm[Hg] Treatment Wstr Work Phone: [facility] 08-25-2021 15:16-0400 Heart rate 89 /min Treatment Wstr Work Phone: [facility] 08-25-2021 15:16-0400 SaO2% (BldA) [Mass fraction] 99 % Treatment Wstr Work Phone: [facility] 08-25-2021 15:16-0400 Systolic blood pressure 136 mm[Hg] Treatment Wstr Work Phone: [facility] 08-24-2021 08:04-0400 Body temperature 98.01 [degF] Mari Akhtar APRN.CNP Work Phone: [facility] 08-24-2021 08:04-0400 Body weight 81.87 kg Mari Akhtar COMPUTER CONSOLE OPERATOR.WILDLIFE CONSERVATION OFFICER Work Phone: [facility] 08-24-2021 08:04-0400 Diastolic blood pressure 73 mm[Hg] Mari Akhtar COMPUTER CONSOLE OPERATOR.WILDLIFE CONSERVATION OFFICER Work Phone: [facility] 08-24-2021 08:04-0400 Heart rate 71 /min Mari Akhtar COMPUTER CONSOLE OPERATOR.WILDLIFE CONSERVATION OFFICER Work Phone: [facility] 08-24-2021 08:04-0400 Systolic blood pressure 128 mm[Hg] Mari Solorzanoenter COMPUTER CONSOLE OPERATOR.WILDLIFE CONSERVATION OFFICER Work Phone: [facility] 08-11-2021 14:44-0400 Body temperature 97.7 [degF] Treatment Wstr Work Phone: [facility] 08-11-2021 14:44-0400 Diastolic blood pressure 84 mm[Hg] Treatment Wstr Work Phone: [facility] 08-11-2021 14:44-0400 Heart rate 64 /min Treatment Wstr Work Phone: [facility] 08-11-2021 14:44-0400 Systolic blood pressure 121 mm[Hg] Treatment Wstr Work Phone: [facility] 07-28-2021 15:01-0400 Body temperature 97.5 [degF] Treatment Wstr Work Phone: [facility] 07-28-2021 15:01-0400 Diastolic blood pressure 82 mm[Hg] Treatment Wstr Work Phone: [facility] 07-28-2021 15:01-0400 Heart rate 78 /min Treatment Wstr Work Phone: [facility] 07-28-2021 15:01-0400 Systolic blood pressure 135 mm[Hg] Treatment Wstr Work Phone: [facility] 07-27-2021 08:12-0400 Body temperature 98.2 [degF] Richard Jenkins DO Work Phone: [facility] 07-27-2021 08:12-0400 Body weight 82.78 kg Richard Jenkins DO Work Phone: [facility] 07-27-2021 08:12-0400 Diastolic blood pressure 85 mm[Hg] Richard Jenkins DO Work Phone: [facility] 07-27-2021 08:12-0400 Heart rate 80 /min Richard Jenkins DO Work Phone: [facility] 07-27-2021 08:12-0400 Systolic blood pressure 126 mm[Hg] Richard Jenkins DO Work Phone: [facility] 03-04-2019 12:30-0500 Body Temperature 97.81 [degF] Tyshawn Carocristóbal [place], [place] 03-04-2019 12:30-0500 BP Diastolic 73 mm[Hg] [place] 03-04-2019 12:30-0500 BP Systolic 112 mm[Hg] [place] 03-04-2019 12:30-0500 Pulse (Heart Rate) 67 /min [facility]wn [facility]anes [facility] [place] 03-04-2019 12:30-0500 Pulse Oximetry 96 % [place] 03-04-2019 12:30-0500 Respiratory Rate 16 /min [place] 03-04-2019 06:04-0500 BMI (Body Mass Index) 37.49 kg/m2 [place] 03-04-2019 06:04-0500 Body weight 115.17 kg [place] 03-03-2019 05:38-0500 Height 175.3 cm [place], [place] Encounters Encounter Date Encounter Type Care Provider Facility Start: 03-04-2025 ambulatory Nikita Jackson Facility:[facility] Start: 02-17-2025 End: 02-17-2025 ambulatory YAW SINGH Facility:[facility] Start: 02-04-2025 End: 02-04-2025 ambulatory Yaw Singh Facility:[facility] Start: 01-30-2025 End: 01-30-2025 Emergency department patient visit Fidelina River Facility:[facility] Start: 01-23-2025 ambulatory Yaw Singh Facility :[facility] Start: 01-22-2025 ambulatory Nikita Jackson Facility:[facility] Start: 01-22-2025 End: 01-22-2025 ambulatory Yaw Singh Facility:[facility] Start: 01-05-2025 End: 01-05-2025 ambulatory YAW SINGH Facility:[facility] Start: 12-24-2024 End: 12-24-2024 Patient encounter procedure Bobby Pratibha TAYLOR Work Phone: [facility] [place] Comment on above: Chronic sinusitis, u nspecified location (Primary Dx); Seasonal allergic rhinitis, unspecified trigger Start: 12-24-2024 End: 12-24-2024 ambulatory YAW SINGH Facility:[facility] Start: 12-22-2024 End: 12-22-2024 Refill Yaw Singh MD Work Phone: [facility] [place] Comment on above: Refill Request Start: 12-18-2024 End: 12-24-2024 Telephone encounter Richard Jenkins DO Work Phone: Hematology/Oncology Comment on above: Appointment Start: 12-03-2024 End: 12-03-[address] Yaw Singh MD Work Phone: -MRI - WC Start: 12-03-2024 End: 12-03-2024 Patient encounter procedure Connie Ibarra PA -MRI - WC Work Phone: Start: 12-03-2024 End: 12-03-2024 ambulatory Connie Ibarra Facility:[facility] Start: 11-26-2024 End: 11-26-[address] Yaw Singh MD Work Phone: -Outpatient Bone Densitometry Start: 11-26-2024 End: 11-26-2024 Patient encounter procedure Connie Ibarra PA -Outpatient Bone Densitometry Work Phone: Start: 11-26-2024 End: 11-26-2024 ambulatory Connie Ibarra Facility:[facility] Start: 11-14-2024 End: 11-14-[address] Haroldo Noland MD -[facility] Start: 11-14-2024 End: 11-14-[address] Yaw Singh MD Work Phone: -[facility] Start: 11-07-2024 End: 11-11-2024 Telephone encounter [...] 11-05-2024 ambulatory Edith West MA [facility] [place] Start: 11-05-2024 End: 11-05-2024 Patient encounter procedure Edith West MA [facility] [place] Comment on above: Population Health Na vigation Outreach ([facility] ) Start: 10-31-2024 [facility] Start: 10-31-2024 End: 10-31-2024 Subsequent hospital visit by physician [facility] (I-Stat) Work Phone: Cat Scan Comment on above: 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 Nikita nicholas MD -[facility] Start: 10-15-2024 End: 10-15-2024 Admission to same day surgery center Dr. Nikita Jackson MD -Racing Secretary And Handicapper/Special Procedures Work Phone: Start: 10-15-2024 End: 10-15-[address] Yaw Singh MD Work Phone: -Racing Secretary And Handicapper/Special Procedures Start: 10-08-2024 End: 10-14-2024 Follow-up encounter Usha Mcgovern PA-C Work Phone: [facility] [place] Comment on above: Results Start: 10-07-2024 End: 10-07-2024 Subsequent hospital visit by physician [facility] [place] Work Phone: Radiology Comment on above: Lumbar back pain [M5 4.50] Start: 10-07-2024 End: 10-07-2024 Office outpatient visit 25 minutes Usha Mcgovern PA-C Work Phone: [facility] [place] Comment on above: Essential hypertensi on, benign (Primary Dx); Mixed hyperlipidemia; 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; Esophageal adenocarcinoma (HCC); [...] Start: 10-07-2024 End: 10-07-2024 ambulatory YAW SINGH Facility:[facility] Start: 09-26-2024 End: 09-26-2024 Telephone encounter Yaw Singh MD Work Phone: [facility] [place] Comment on above: Orders Start: 09-22-2024 End: 09-22-2024 Patient encounter procedure Yaw Singh MD Work Phone: [facility] [place] Comment on above: History of cerebral infarction (Primary Dx); Gynecomastia Start: 09-22-2024 End: 09-22-2024 ambulatory YAW SINGH Facility:[facility] Start: 09-18-2024 End: 09-18-2024 Chart abstracting Yaw Singh MD Work Phone: [facility] [place] Comment on above: ER Discharge Summary Start: 09-17-2024 End: 09-17-2024 Emergency department patient visit Dr. Yaw Singh MD Work Phone: -Emergency Department Work Phone: Start: 09-12-2024 End: 09-12-2024 Office outpatient visit 25 minutes Yaw Smith APRN.CNP Work Phone: [facility] Comment on above: Skin tear of left fo rearm without complication, initial encounter (Primary Dx) Start: 09-12-2024 End: 09-12-2024 ambulatory YAW SINGH Facility:[facility] Start: 09-09-2024 End: 09-09-2024 Follow-up encounter Stacia Adame MD Work Phone: [facility] [place] Comment on above: Results (MRI without contrast) Start: 09-09-2024 End: 09-09-2024 Refill Richard Jenkins DO Work Phone: Hematology/Oncology Comment on above: Refill Request Start: 09-08-2024 End: 09-08-2024 Refill Yaw Singh MD Work Phone: [facility] [place] Comment on above: Refill Request Hyperprolactinemia ( HCC) [E22.1] Start: 09-04-2024 End: 09-05-2024 Follow-up encounter Yaw Singh MD Work Phone: [facility] [place] Start: 09-02-2024 End: 09-02-2024 Patient encounter procedure Maggie SOSA -[facility] Work Phone: Start: 09-02-2024 End: 09-02-2024 Refill Richard Jenkisn DO Work Phone: Hematology/Oncology Comment on above: Refill Request Start: 08-27-2024 ambulatory YAW Joshii ty:[facility] Start: 08-20-2024 End: 08-20-2024 Subsequent hospital visit by physician [facility] [place] Work Phone: Radiology Comment on above: Acute bilateral low back pain without sciatica [M54.50] Start: 08-20-2024 End: 08-20-2024 Office outpatient visit 25 minutes Steve Youssef PA-C Work Phone: [facility] Comment on above: Acute bilateral low back pain without sciatica (Primary Dx) Start: 08-20-2024 End: 08-20-2024 ambulatory STEVE YOUSSEF Facility:[facility] Start: 08-19-2024 End: 08-19-2024 ambulatory Josue Oquendo RN Fundraising Manager Management Comment on above: Bi-Weekly Outreach ( Recurring) for Chronic Disease Management Start: 08-11-2024 End: 08-11-2024 Refill Richard Mendezi DO Work Phone: Hematology/Oncology Comment on above: Refill Request Start: 08-05-2024 End: 08-05-2024 Patient encounter procedure Marcela SOSA Work Phone: [facility] Comment on above: Dog scratch (Primary Dx); Visit for wound check Start: 08-05-2024 End: 08-05-2024 ambulatory Jouse Oquendo RN Fundraising Manager Management Comment on above: Bi-Weekly Outreach ( Recurring) for Chronic Disease Management Start: 08-01-2024 End: 09-01-2024 ambulatory Josue Oquendo RN Fundraising Manager Management Comment on above: Bi-Weekly Outreach ( Recurring) for Chronic Disease Management Start: 07-29-2024 End: 07-29-2024 Chart abstracting Alberta Candelaria MA [facility] [place] Comment on above: Consult (General Winifred jewell - F/U AVF ) Start: 07-22-2024 End: 07-22-2024 Patient encounter procedure Maggie SOSA -[facility] Work Phone: Start: 07-22-2024 End: 07-22-2024 ambulatory Yaw Singh Facility:[facility] Start: 07-21-2024 Encounter for other preprocedural examination [facility] Start: 07-16-2024 ambulatory Yaw Singh Facility :[facility] Start: 07-11-2024 End: 07-11-2024 Follow-up encounter Stacia Adame MD Work Phone: [facility] [place] Start: 07-11-2024 End: 09-08-2024 Telephone encounter Stacia Adame MD Work Phone: [facility] [place] Comment on above: Results Start: 07-10-2024 End: 07-10-2024 Refill Richard Jenkins DO Work Phone: Hematology/Oncology Comment on above: Refill Request Start: 07-04-2024 End: 07-04-2024 Chart abstracting Alberta Candelaria MA [facility] [place] Comment on above: Consult (Outside con sults /) Start: 06-30-2024 End: 06-30-2024 ambulatory YAW SINGH Facility:[facility] Start: 06-30-2024 End: 06-30-2024 Patient encounter procedure Yaw Singh MD Work Phone: [facility] Comment on above: Gynecomastia (Primar y Dx); Subareolar mass of right breast; Esophageal adenocarcinoma (HCC); Pain, unspecified; 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 Nikita nicholas MD -[facility] Start: 06-30-2024 End: 06-30-2024 Admission to same day surgery center Dr. Nikita Jackson MD -[facility] Start: 06-30-2024 End: 06-30-[address] Yaw Singh MD Work Phone: [facility] Work Phone: Start: 06-20-2024 End: 06-20-2024 Telephone encounter Hill HARRISON Work Phone: [facility] Comment on above: Follow Up (Psychosoc ial Eval) Start: 06-19-2024 Encounter for other preprocedural examination Nikita Jackson [facility] Start: 06-11-2024 Encounter for other preprocedural examination YAW SINGH [facility] Start: 06-11-2024 End: 06-11-2024 ambulatory [facility] Facility:[facility] Start: 06-11-2024 End: 06-11-2024 Preprocedural examination done Grabiel Ruff MD Work Phone: [facility] Start: 06-11-2024 End: 06-11-[facility]24 [facility] Start: 06-11-2024 End: 06-11-2024 ambulatory Vicente Addison [...] encounter status Kidney Txp Coordinators Work Phone: [facility] Start: 06-11-2024 End: 06-11-2024 ambulatory MARIA VICTORIA [facility] Facility:[facility] Start: 06-11-2024 Encounter for other preprocedural examination YAW SINGH [facility] Start: 06-09-2024 End: 06-09-2024 Chart abstracting Alberta Candelaria MA [facility] Comment on above: Results (Outside lab s /) Start: 06-06-2024 End: 06-06-2024 Chart abstracting Yaw Singh MD Work Phone: [facility] Comment on above: Outside Boii-Ipu-SOR Ordered Pre-transplant evalu ation for kidney transplant (Primary Dx) Start: 06-06-2024 End: 06-06-2024 Patient encounter status Maulik Aranda MD Work Phone: [facility] Start: 06-06-2024 End: 06-06-2024 Telephone encounter Nisha Schultz RN [facility] Comment on above: Referral - Kidney Tx p Start: 06-06-2024 End: 06-06-[address] Yaw Singh MD Work Phone: [facility] Work Phone: Start: 06-06-2024 End: 06-06-[address] 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] Start: 05-07-2024 End: 05-08-2024 Telephone encounter Richard Jenkins DO Work Phone: Hematology/Oncology Comment on above: Results Start: 05-07-2024 End: 05-07-2024 ambulatory YAW SINGH Facility:[facility] Start: 05-07-2024 End: 05-07-2024 Patient encounter procedure [...] Chart abstracting Yaw Singh MD Work Phone: [facility] [place] Comment on above: Outside Cardiology Start: 04-29-2024 End: 04-29-2024 Patient encounter procedure Vern SOSA -[facility] Work Phone: Start: 04-29-2024 End: 04-29-2024 ambulatory Yaw Singh Facility:[facility] Start: 04-28-2024 End: 04-28-[address] Nikita Jackson MD -[facility] Work Phone: Start: 04-28-2024 End: 04-28-2024 ambulatory Gaudencio Greenberg Facility:[facility] Start: 04-25-2024 End: 04-25-2024 Chart abstracting Yaw Singh MD Work Phone: [facility] Comment on above: Outside Imaging Start: 04-24-2024 ambulatory Yaw Samantha Facility :[facility] Start: 04-24-2024 Non-patient / Non-visit Dr. Nikita nicholas MD -[facility] Start: 04-24-2024 End: 04-24-[address] 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] Start: 03-11-2024 End: 03-11-2024 ambulatory YAW SINGH Facility:[facility] Start: 03-11-2024 End: 03-11-2024 Patient encounter procedure Yaw Singh MD Work Phone: [facility] Comment on above: Medicare annual well ness visit, subsequent (Primary Dx); Essential hypertension, benign; Mixed hyperlipidemia; 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 Elliot Singh MD Work Phone: [facility] Start: 02-04-2024 End: 02-04-2024 Telephone encounter Zachary Harpertaniya MARKHAMWILDLIFE CONSERVATION OFFICER Work Phone: Pulmonary Medicine Start: 01-31-2024 [facility] :[facility] Start: 01-31-2024 End: 01-31-2024 Subsequent hospital visit by physician [facility] Comment on above: Pleural effusion [J9 0] Start: 01-31-2024 End: 01-31-2024 Patient encounter procedure Zachary Berkowitz COMPUTER CONSOLE OPERATOR.WILDLIFE CONSERVATION OFFICER Work Phone: Pulmonary Medicine Comment on above: [...] Yaw Singh MD Work Phone: [facility] [place] Comment on above: Heart failure, unspe cified HF chronicity, unspecified heart failure type (HCC) (Primary Dx) Start: 01-06-2024 End: 01-14-2024 Telephone encounter Yaw Singh MD Work Phone: [facility] [place] Comment on above: Results Start: 01-03-2024 [...] Yaw Singh MD Work Phone: [facility] [place] Comment on above: Home Health Orders Start: 12-25-2023 End: 12-25-2023 Chart abstracting Yaw Singh MD Work Phone: [facility] [place] Comment on above: Outside EGD Start: 11-15-2023 Chart abstracting Yaw hernandez MD Work Phone: [facility] [place] Comment on above: Outside H&P (Outside Nephrology/) Start: 11-07-2023 Chart abstracting Alberta Candelaria MA [facility] [place] Comment on above: Hospital Admission ( [facility] ) Start: 11-05-2023 Chart abstracting Yaw hernandez MD Work Phone: [facility] [place] Comment on above: Outside EGD Hospital F/U ([facility] ) Start: 11-02-2023 Chart abstracting Alberta Candelaria MA [facility] [place] Comment on above: Hospital F/U ([facility] ) Start: 10-31-2023 Chart abstracting Alberta Candelaria MA [facility] [place] Comment on above: Consult (External co nsult Pulmonary - [facility] admitted ) Start: 10-29-2023 Chart abstracting Alberta Candelaria MA [facility] [place] Comment on above: Hospital F/U ([facility] ) Start: 10-23-2023 Telephone encounter Richard pace DO Work Phone: Hematology/Oncology Comment on above: Results Start: 10-09-2023 End: 10-09-2023 Patient encounter procedure Helen Blair MD Work Phone: Pulmonary Medicine Comment on above: Pleural effusion (Pr imary Dx); Chronic heart failure with preserved ejection fraction (HCC) Start: 10-08-2023 Telephone encounter Helen ann MD Work Phone: [facility] Comment on above: Patient Question Results Start: 10-05-2023 End: 10-05-2023 Patient encounter procedure Yaw Singh MD Work Phone: [facility] Comment on above: Essential hypertensi on, benign (Primary Dx); Mixed hyperlipidemia; Gastroesophageal reflux disease, unspecified whether esophagitis present; 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; Ascending aorta dilation (HCC); Iron deficiency anemia due to chronic blood loss; Uncomplicated asthma, unspecified asthma severity, unspecified whether persistent; Malignant neoplasm of lower third of esophagus (HCC); Esophageal adenocarcinoma (HCC); Pleural effusion; Primary insomnia; Microscopic hematuria; Medication management Start: 09-21-2023 Telephone encounter Usha white PA-C Work Phone: [facility] Comment on above: Results Start: 09-17-2023 Telephone encounter Richard pace DO Work Phone: Hematology/Oncology Comment on above: Biopsy Request (Bone Biopsy) Results Start: 09-14-2023 Telephone encounter Usha white PA-C Work Phone: [facility] Comment on above: Results Start: 09-13-2023 End: 09-13-2023 Subsequent hospital visit by physician Xr [facility] [place] Work Phone: Radiology Comment on above: Pleural effusion [J9 0] Start: 09-13-2023 End: 09-13-2023 Patient encounter procedure Usha Mcgovern PA-C Work Phone: [facility] Comment on above: Pleural effusion (Pr imary Dx); Nephrolithiasis; TRIPATHI (dyspnea on exertion); 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; Essential hypertension, benign Start: 09-12-2023 Telephone encounter Alberta Candelaria MA [facility] Comment on above: Patient Update Start: 09-10-2023 End: 09-10-2023 Subsequent hospital visit by physician Mri [facility] (I-Stat/1.5t) Work Phone: Radiology Comment on above: Pathological fractur e of thoracic vertebra, initial encounter [M84.48XA] Start: 09-06-2023 End: 09-06-2023 ambulatory Tye Flores PT Work Phone: [facility] Comment on above: Strain [...] 08-03-2023 [facility] Comment on above: 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] Start: 08-01-2023 Orders Only Richard Yoder O Work Phone: Hematology/Oncology Comment on above: 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) Start: 07-30-2023 End: 07-30-2023 ambulatory Tye Flores PT Work Phone: [facility] Comment on above: Closed [...] 07-12-2023 End: 07-12-2023 Patient encounter procedure Jesus Manule Resendiz PA-C Work Phone: [facility] [place] Comment on above: Strain of thoracic p araspinal muscles excluding T1 and T2 levels, sequela (Primary Dx); Closed wedge compression fracture of T10 vertebra with routine healing, subsequent encounter; Malignant neoplasm of lower third of esophagus (HCC); Kyphosis (acquired) (postural) Start: 07-02-2023 Telephone encounter Usha white PA-C Work Phone: [facility] Comment on above: Results Start: 06-28-2023 Telephone encounter Yaw Singh MD Work Phone: [facility] Comment on above: Results Start: 06-28-2023 End: 06-28-2023 Subsequent hospital visit by physician [facility] Work Phone: Nuclear Medicine Comment on above: RUQ pain [R10.11] Start: 06-19-2023 Telephone encounter Yaw Singh MD Work Phone: [facility] Comment on above: Results Start: 06-19-2023 End: 06-19-2023 Patient encounter procedure Usha Mcgovern PA-C Work Phone: [facility] [place] Comment on above: RUQ pain (Primary Dx ); Nausea; Chronic midline low back pain without sciatica; Intertrigo Start: 06-15-2023 Telephone encounter Richard pace DO Work Phone: Hematology/Oncology Comment on above: Patient Question Start: 06-05-2023 Encounter for other preprocedural examination AMOS RANGEL [facility] Start: 06-05-2023 ambulatory AMOS RANGEL Facility :[facility] Start: 06-05-2023 End: 06-05-2023 Preprocedural examination done Amos Rangel MD Work Phone: [facility] Start: 06-05-2023 End: 06-05-2023 Subsequent hospital visit by physician Amos Rangel MD Work Phone: [facility] Comment on above: Malignant neoplasm o f esophagus, unspecified location (HCC) [C15.9] Start: 05-29-2023 Refill Richard Yoder O Work Phone: Hematology/Oncology Comment on above: Refill Request Start: 05-28-2023 Orders Only Amos Rangel MD Work Phone: [facility] Comment on above: Malignant neoplasm o f esophagus, unspecified location (HCC) (Primary Dx) Start: 05-07-2023 ambulatory JURGEN BOCANEGRA Facil ity:[facility] Start: 04-25-2023 End: 04-25-2023 ambulatory JURGEN BOCANEGRA Facility:[facility] Start: 04-10-2023 ambulatory RICHARD JENKINS Facility:[facility] Start: 03-30-2023 Patient encounter procedure Amos Rangel MD Work Phone: [facility] Work Phone: Start: 03-29-2023 Telephone encounter Richard pace DO Work Phone: Hematology/Oncology Comment on above: Results (MRI thoraci c spine) Start: 02-27-2023 End: 02-27-2023 Patient encounter procedure Jessica Olvera APRN.WILDLIFE CONSERVATION OFFICER Work Phone: [facility] Comment on above: Rhinosinusitis (Prim ursula Dx) Start: 02-21-2023 Telephone encounter Richard pace DO Work Phone: Hematology/Oncology Comment on above: Results; Follow Up Start: 02-19-2023 End: 02-19-2023 Patient encounter procedure Yaw Singh MD Work Phone: [facility] Comment on above: APPOINTMENT CANCELLE D (Primary Dx) Start: 02-13-2023 End: 02-13-2023 Subsequent hospital visit by physician Dina [facility] (I-Stat) Work Phone: Cat Scan Comment on above: 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] Start: 02-12-2023 Orders Only Richard Yoder O Work Phone: Hematology/Oncology Comment on above: 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) Start: 11-22-2022 Chart abstracting Yaw hernandez MD Work Phone: [facility] Comment on above: Consult Start: 11-15-2022 End: 11-15-2022 ambulatory [facility] Work Phone: Start: 11-15-2022 End: 11-15-2022 Patient encounter procedure [facility] Work Phone: Start: 08-22-2022 End: 08-22-2022 ambulatory Richard Jenkins DO Work Phone: Hematology/Oncology Comment on above: 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) Start: 08-22-2022 End: 08-22-2022 Patient encounter procedure Richard Jenkins DO Work Phone: [facility] Start: 08-09-2022 End: 08-09-2022 Patient encounter procedure Usha Mcgovern PA-C Work Phone: [facility] Comment on above: Essential hypertensi on, benign (Primary Dx); Mixed hyperlipidemia; Gastroesophageal reflux disease, unspecified whether esophagitis present; Esophageal adenocarcinoma (HCC); 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; S/P CABG x 4; Malignant neoplasm of lower third of esophagus (HCC); Iron deficiency anemia due to chronic blood loss; Benign prostatic hyperplasia, unspecified whether lower urinary tract symptoms present Start: 08-02-2022 End: 08-02-2022 Patient encounter procedure Queta Hunt APRN.WILDLIFE CONSERVATION OFFICER Work Phone: [facility] Comment on above: 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 Yaw Singh Work Phone: [facility] Work Phone: Start: 07-24-2022 End: 07-24-[address] Yaw Singh Work Phone: [facility] Start: 06-26-2022 Chart abstracting Yaw hernandez MD Work Phone: [facility] Comment on above: ER and Imaging Start: 06-26-2022 Telephone encounter Yaw Singh MD Work Phone: [facility] Comment on above: Patient Question Start: 06-23-2022 End: 06-23-2022 Emergency department patient visit Dr. Yaw Singh Work Phone: [facility] Start: 06-16-2022 Telephone encounter Yaw Singh MD Work Phone: NOC Comment on above: Appointment Start: 06-09-2022 End: 06-09-2022 Subsequent hospital visit by physician Xr [facility] Work Phone: Radiology Comment on above: Rib injury [S29.9XXA ] Start: 06-09-2022 End: 06-09-2022 Office outpatient visit 15 minutes Yaw Smith APRN.WILDLIFE CONSERVATION OFFICER Work Phone: [facility] Comment on above: Rib injury (Primary Dx) Start: 05-29-2022 Telephone encounter Mari gill COMPUTER CONSOLE OPERATOR.WILDLIFE CONSERVATION OFFICER Work Phone: Hematology/Oncology Comment on above: Future Appointment Start: 05-25-2022 End: 05-25-2022 ambulatory Mari Akhtar COMPUTER CONSOLE OPERATOR.WILDLIFE CONSERVATION OFFICER Work Phone: Hematology/Oncology Comment on above: 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) Start: 05-25-2022 End: 05-25-2022 Patient encounter procedure Mari Akhtar COMPUTER CONSOLE OPERATOR.WILDLIFE CONSERVATION OFFICER Work Phone: [facility] Start: 05-22-2022 End: 05-22-2022 Subsequent hospital visit by physician [facility] (I-Stat) Work Phone: Cat Scan Comment on above: 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 Yaw Singh Work Phone: [facility] Start: 04-20-2022 ambulatory Yaw leonardo MD Work Phone: [facility] Comment on above: Hematuria Start: 03-19-2022 Telephone encounter Yaw Singh MD Work Phone: [facility] Comment on above: Results Start: 03-18-2022 Telephone encounter Edith Rivas COMPUTER CONSOLE OPERATOR.WILDLIFE CONSERVATION OFFICER Work Phone: [facility] Comment on above: Results Start: 03-17-2022 End: 03-17-2022 Patient encounter procedure Dana Humphries COMPUTER CONSOLE OPERATOR.WILDLIFE CONSERVATION OFFICER Work Phone: [facility] Comment on above: Sinus congestion (Pr imary Dx); Acute cough Start: 02-22-2022 End: 02-22-2022 ambulatory Mari Akhtar COMPUTER CONSOLE OPERATOR.WILDLIFE CONSERVATION OFFICER Work Phone: Hematology/Oncology Comment on above: 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) Start: 02-22-2022 End: 02-22-2022 Patient encounter procedure Mari Akhtar APRN.WILDLIFE CONSERVATION OFFICER Work Phone: [facility] Start: 02-21-2022 Telephone encounter Yaw Singh MD Work Phone: [facility] Comment on above: Results Start: 02-20-2022 End: 02-20-2022 Subsequent hospital visit by physician [facility] (I-Stat) Work Phone: Cat Scan Comment on above: 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] Start: 02-09-2022 End: 02-09-2022 Patient encounter procedure Yaw Singh MD Work Phone: [facility] Comment on above: Medicare annual well ness visit, subsequent (Primary Dx); Essential hypertension, benign; Mixed hyperlipidemia; Gastroesophageal reflux disease, unspecified whether esophagitis present; Iron deficiency anemia due to chronic blood loss; 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; Aortic valve stenosis, etiology of cardiac valve disease unspecified; Uncomplicated asthma, unspecified asthma severity, unspecified whether persistent; Situational depression; Esophageal adenocarcinoma (HCC); Malignant neoplasm of lower third of esophagus (HCC); Pleural effusion; Balanitis; Advance directive discussed with patient; Medication management; Prostate disorder; Decreased sexual desire; Encounter for immunization Start: 12-01-2021 End: 12-01-2021 ambulatory Mari Akhtar APRN.WILDLIFE CONSERVATION OFFICER Work Phone: Hematology/Oncology Comment on above: 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) Start: 12-01-2021 End: 12-01-2021 Patient encounter procedure Mari Akhtar APRN.WILDLIFE CONSERVATION OFFICER Work Phone: [facility] Start: 11-16-2021 Telephone encounter Richard pace DO Work Phone: Hematology/Oncology Comment on above: Patient Question Start: 11-09-2021 End: 11-09-2021 Patient encounter procedure Queta Gleason APRN.WILDLIFE CONSERVATION OFFICER Work Phone: [facility] Comment on above: [...] encounter procedure Richard Jenkins DO Work Phone: [facility] Start: 10-20-2021 End: 10-20-2021 ambulatory Treatment 12 [facility] Work Phone: Hematology/Oncology Comment on above: Esophageal adenocarc inoma (HCC) (Primary Dx); Malignant neoplasm of lower third of esophagus (HCC) Start: 10-05-2021 End: 10-05-2021 ambulatory Richard Jenkins DO Work Phone: Hematology/Oncology Comment on above: 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); Pleural effusion Start: 10-05-2021 End: 10-05-2021 Patient encounter procedure Richard Jenkins DO [facility] Start: 10-03-2021 End: 10-03-2021 Subsequent hospital visit by physician Dina [facility] (I-Stat) Work Phone: Cat Scan [...] Start: 09-08-2021 End: 09-08-2021 ambulatory Treatment 12 [facility] Work Phone: Hematology/Oncology Comment on above: [...] 08-25-2021 End: 08-25-2021 ambulatory Treatment Rm 11 [facility] Work Phone: Hematology/Oncology Comment on above: Esophageal adenocarc inoma (HCC) (Primary Dx); Malignant neoplasm of lower third of esophagus (HCC) Start: 08-24-2021 End: 08-24-2021 ambulatory Mari Akhtar APRN.WILDLIFE CONSERVATION OFFICER Work Phone: Hematology/Oncology Comment on above: Esophageal adenocarc inoma (HCC) (Primary Dx) Start: 08-24-2021 End: 08-24-2021 Patient encounter procedure Mari Akhtar APRN.WILDLIFE CONSERVATION OFFICER [facility] [place] [place] [facility] Start: 08-11-2021 End: 08-11-2021 ambulatory Treatment 11 [facility] Work Phone: Hematology/Oncology Comment on above: Esophageal adenocarc inoma (HCC) (Primary Dx); Malignant neoplasm of lower third of esophagus (HCC) Start: 08-04-2021 Orders Only Renetta Dubon nd, MD Work Phone: [facility] Comment on above: 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) Start: 07-28-2021 End: 07-28-2021 ambulatory Treatment Rm 10 [facility] Work Phone: Hematology/Oncology Comment on above: Esophageal adenocarc inoma (HCC) (Primary Dx); Malignant neoplasm of lower third of esophagus (HCC) Start: 07-28-2021 Telephone encounter Usha white PA-C Work Phone: [facility] Comment on above: Results Start: 07-27-2021 End: 07-27-2021 ambulatory Richard Jenkins DO Work Phone: Hematology/Oncology Comment on above: Esophageal adenocarc inoma (HCC) (Primary Dx); Iron deficiency anemia due to chronic blood loss; LEELA (acute kidney injury) (HCC); Other hypervolemia Start: 07-27-2021 End: 07-27-2021 Patient encounter procedure Richard Jenkins DO Work Phone: [facility] Start: 01-13-2021 Patient encounter procedure Richard Jenkins DO Work Phone: [facility] Work Phone: Start: 03-03-2020 End: 03-03-2020 Subsequent hospital visit by physician 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 Work Phone: [facility] [address] Comment on above: S/P TAVR (transcathe ter aortic valve replacement); Aortic valve stenosis, etiology of cardiac valve disease unspecified Start: 04-16-2019 End: 04-16-2019 Subsequent hospital visit by physician 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 COMPUTER CONSOLE OPERATOR - WILDLIFE CONSERVATION OFFICER Work Phone: [facility] [address] Comment on above: Aortic valve stenosi s, etiology of cardiac valve disease unspecified Start: 04-16-2019 End: 04-16-2019 Subsequent hospital visit by physician 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 COMPUTER CONSOLE OPERATOR - WILDLIFE CONSERVATION OFFICER Work Phone: [facility] [address] Comment on above: Severe aortic stenos is; 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; Essential hypertension; Obesity (BMI 30.0-34.9) Start: 03-03-2019 End: 03-04-2019 Evaluation and management of inpatient Tyshawn Magallanes Work Phone: [facility] Comment on above: Arrived Start: 02-21-2019 End: 02-21-2019 Subsequent hospital visit by physician Krys Toscano Work Phone: [facility] [address] Comment on above: Nonrheumatic aortic valve stenosis Start: 02-21-2019 End: 02-21-2019 Subsequent hospital visit by physician Tyshawn Magallanes Work Phone: [facility] Comment on above: Nonrheumatic aortic valve stenosis Start: 02-18-2019 End: 02-18-2019 Subsequent hospital visit by physician Tyshawn Magallanes Work Phone: [facility] [address] Comment on above: Nonrheumatic aortic valve stenosis Start: 11-24-2017 Patient encounter Reynold morales:[facility] Start: 07-20-2017 End: 07-20-2017 Emergency department patient visit KATHI BEASLEY [facility] Procedures Date Procedure Procedure Detail Performing Clinician [...] Comment: Specimen Type: BLOOD SPEC IMENOrdering Facility: [facility] Address: [address] [place] [address] Performed By: #### T SCR ####CC MAIN BLOOD BANKCLIA [id number] [address] [place] Start: 05-07-2024 Mri [...] Start: 08-02-2022 Esophagogastroduodenoscopy transoral diagnostic Queta Hunt COMPUTER CONSOLE OPERATOR.WILDLIFE CONSERVATION OFFICER Work Phone: Start: 07-24-2022 Diagnostic radiography of abdomen Dr. Neal Singh Work Phone: Start: 06-23-2022 Computed tomography of abdomen and pelvis with contrast Dr. Yaw Singh Work Phone: Start: 06-09-2022 Radex ribs uni w/posteroant ch minimum 3 views Yaw Smith COMPUTER CONSOLE OPERATOR.WILDLIFE CONSERVATION OFFICER Work Phone: Start: 05-22-2022 Ct abdomen & pelvis w/contrast material Mari Akhtar COMPUTER CONSOLE OPERATOR.WILDLIFE CONSERVATION OFFICER Work Phone: Start: 05-22-2022 Ct thorax w/contrast material Mari Carp bridget COMPUTER CONSOLE OPERATOR.WILDLIFE CONSERVATION OFFICER Work Phone: Start: 02-20-2022 Ct abdomen & pelvis w/contrast material Richard Mendezi DO Work Phone: Start: 02-20-2022 Ct thorax w/contrast material Richard Tubbs ci DO Work Phone: Start: 02-20-2022 Lipid 1996 panel - Serum or Plasma Ct (I -Stat) Work Phone: Start: 02-09-2022 INFLUENZA SEASONAL QUADRIVALENT HIGH DOSE AGE 65+ Yaw Singh MD Work Phone: Start: 11-09-2021 Esophagogastroduodenoscopy transoral diagnostic Rosibel COMPUTER CONSOLE OPERATOR.WILDLIFE CONSERVATION OFFICER Work Phone: Start: 10-03-2021 Ct abdomen & pelvis w/contrast material Cody Akhtar COMPUTER CONSOLE OPERATOR.WILDLIFE CONSERVATION OFFICER Work Phone: Start: 10-03-2021 Ct thorax w/contrast material Cody Carp enter COMPUTER CONSOLE OPERATOR.WILDLIFE CONSERVATION OFFICER Work Phone: Start: 09-07-2021 Esophagogastroduodenoscopy transoral diagnostic Renetta Radford MD Work Phone: Start: 06-01-2020 Colonoscopy Richard Goi DO Work Phone: Start: 03-03-2020 Echo tthrc r-t 2d w/wom-mode compl spec&colr d 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 Work Phone: Start: 04-16-2019 Echo tthrc r-t 2d w/wom-mode compl spec&colr d 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 COMPUTER CONSOLE OPERATOR - WILDLIFE CONSERVATION OFFICER Work Phone: Start: 04-16-2019 Basic metabolic panel calcium total 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 COMPUTER CONSOLE OPERATOR - WILDLIFE CONSERVATION OFFICER Work Phone: Start: 03-04-2019 Echo tthrc r-t [...] Yaw Singh Work Phone: Comment on above: DWY-QTT-Drgoug RPDA w/ 2.25 x 16 mm Prom us Premier, APPLE-Distal RCA w/ 4.0 x 16 mm Promus Premier and APPLE-Mid RCA w/ 4.0 x 16 mm Promus Premier 07/23/2014; AGL-KHQ-Ilnpwx SVG-D1 w/ 3.5 x 18 mm Xience [...] bypass grafting S/P CABG x 4 [facility]rology [facility] Work Phone: Plan of Treatment Date Care Activity Detail Author Start: 05-07-2034 Urine microalbumin profile DTaP,Tdap,Td Vaccine (5 - Td or Tdap) [facility] Start: 10-07-2029 Lipid panel Lipid Screening [facility] Start: 04-17-2029 Lipid panel Lipid Screening [facility] Start: 10-04-2028 Lipid panel Lipid Screening [facility] Start: 06-18-2028 Lipid panel Lipid Screening [facility] Start: 01-29-2028 DTaP/Tdap/Td vaccine (3 - Td) DTaP/Tdap/Td vaccine (3 - Td) [place] Start: 01-29-2028 Urine microalbumin profile [facility] Start: 10-08-2027 Diabetes Screening Diabetes Screening [facility] Start: 06-12-2027 Diabetes Screening Diabetes Screening [facility] Start: 04-17-2027 Diabetes Screening Diabetes Screening [facility] Start: 02-20-2027 Lipid 1996 panel - Serum or Plasma Lipid Screening [facility] Start: 02-20-2027 Lipid panel Lipid Screening [facility] Start: 02-20-2027 LIPID SCREEN LIPID SCREEN [facility] Start: 02-20-2027 PROSTATE CANCER SCREENING DISCUSSION PROSTATE CANCER SCREENING DISCUSSION [facility] Start: 02-20-2027 Prostate specific antigen measurement Prostate Cancer Screening Discussion [facility] Start: 12-06-2026 Colon cancer screen colonoscopy Colon cancer screen colonoscopy [place] Start: 12-06-2026 Screening for malignant neoplasm of colon Colon cancer screen colonoscopy [place] Start: 10-04-2026 Diabetes Screening Diabetes Screening [facility] Start: 09-12-2026 Diabetes Screening Diabetes Screening [facility] Start: 07-27-2026 LIPID SCREEN LIPID SCREEN [facility] Start: 06-18-2026 Diabetes Screening Diabetes Screening [facility] Start: 02-13-2026 Diabetes Screening Diabetes Screening [facility] Start: 01-20-2026 PROSTATE CANCER SCREENING DISCUSSION PROSTATE CANCER SCREENING DISCUSSION [facility] Start: 01-07-2026 LIPID SCREEN LIPID SCREEN [facility] Start: 10-07-2025 Annual PCP Team Chronic Disease Visit Annual PCP Team Chronic Disease Visit [facility] Start: 10-07-2025 Creatinine measurement Serum Creatinine [facility] Start: 10-07-2025 Hepatitis B surface antibody level LDL Cholesterol [facility] Start: 09-22-2025 Annual PCP Team Chronic Disease Visit Annual PCP Team Chronic Disease Visit [facility] Start: 09-12-2025 BP Controlled (<130/80) BP Controlled (<130/80) [facility] Start: 08-22-2025 DIABETES SCREEN DIABETES SCREEN [facility] Start: 08-22-2025 Diabetes Screening Diabetes Screening [facility] Start: 08-20-2025 BP Controlled (<130/80) BP Controlled (<130/80) [facility] Start: 08-05-2025 BP Controlled (<130/80) BP Controlled (<130/80) [facility] Start: 06-30-2025 Annual PCP Team Chronic Disease Visit Annual PCP Team Chronic Disease Visit [facility] Start: 06-30-2025 BP Controlled (<130/80) BP Controlled (<130/80) [facility] Start: 06-11-2025 BP Controlled (<130/80) BP Controlled (<130/80) [facility] Start: 06-11-2025 Complete blood count Hemoglobin/Hematocrit [facility] Start: 06-11-2025 Creatinine measurement Serum Creatinine [facility] Start: 06-01-2025 Colonoscopy COLONOSCOPY [facility] Start: 06-01-2025 COLORECTAL CANCER SCREENING COLORECTAL CANCER SCREENING [facility] Start: 06-01-2025 Screening for malignant neoplasm of colon [facility] Start: 05-22-2025 DIABETES SCREEN DIABETES SCREEN [facility] Start: 05-11-2025 End: 05-11-2025 ambulatory 05/11/2025 9:50 AM EST Visit (SP) Office Hematology/Oncology [address] [place] [phone] Richard Jenkins DO [address] [place] [phone] 6MO OV/CT & LABS 05/04* Hematology/Oncology Comment on above: 6MO OV/CT & LABS 05/04* Start: 05-07-2025 BP Controlled (<130/80) BP Controlled (<130/80) [facility] Start: 05-04-2025 End: 05-04-2025 Patient encounter procedure Cat Scan Comment on above: 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] Start: 05-04-2025 End: 05-04-2025 ambulatory 05/04/2025 9:00 AM EST Results Only [facility] [address] [place] [id number] CBC/CMP [facility] Comment on above: CBC/CMP Start: 04-17-2025 Complete blood count Hemoglobin/Hematocrit [facility] Start: 04-17-2025 Creatinine measurement Serum Creatinine [facility] Start: 04-17-2025 Hepatitis B surface antibody level LDL Cholesterol [facility] Start: 03-11-2025 Annual PCP Team Chronic Disease Visit Annual PCP Team Chronic Disease Visit [facility] Start: 03-11-2025 Anxiety Screening Anxiety Screening [facility] Start: 03-11-2025 BP Controlled (<130/80) BP Controlled (<130/80) [facility] Start: 03-11-2025 Medicare Annual Wellness Visit Medicare Annual Wellness Visit [facility] Start: 03-11-2025 End: 03-11-2025 Patient encounter procedure 03/11/2025 8:00 AM EST Office Visit Family Jaki Cheema [address] [place] [address] Yaw Singh MD [address], [place] [id number] Medicare Wellness [facility] Comment on above: Medicare Wellness Start: 02-20-2025 DIABETES SCREEN DIABETES SCREEN [facility] Start: 01-30-2025 BP Controlled (<130/80) BP Controlled (<130/80) [facility] Start: 01-16-2025 Annual PCP Team Chronic Disease Visit Annual PCP Team Chronic Disease Visit [facility] Start: 01-16-2025 BP Controlled (<130/80) BP Controlled (<130/80) [facility] Start: 01-05-2025 End: 01-05-2025 Patient encounter procedure 01/05/2025 7:00 AM EDT Office Visit [facility] Jaki Cheema [address] [place] [address] Yaw Singh MD [address], [place] [phone] Review outside testing BMD [facility] Comment on above: Review outside testing BMD Start: 01-02-2025 Annual PCP Team Chronic Disease Visit Annual PCP Team Chronic Disease Visit [facility] Start: 01-02-2025 BP Controlled (<130/80) BP Controlled (<130/80) [facility] Start: 12-08-2024 Influenza vaccination [facility] Start: 12-03-2024 MR Lumbar spine [facility] Start: 12-03-2024 MRI of lumbar spine Spine Lumbar (Routine) [facility] Start: 11-20-2024 End: 11-20-2024 Patient encounter procedure 11/20/2024 1:00 PM EDT Office Visit [facility] [address] [place] [address] Gloria Torres APRN.WILDLIFE CONSERVATION OFFICER [address] [place] [address] Lumbar back pain [M54.50]; Compression fracture of lumbar vertebra with routine healing, unspecified lumbar vertebral level, subsequent encounter [S32.000D]; Closed wedge compression fracture of T10 vertebra with routine healing, subsequent encounter [S22.070D [facility] Comment on above: Lumbar back pain [M54.50]; Compression f racture of lumbar vertebra with routine healing, unspecified lumbar vertebral level, subsequent encounter [S32.000D]; Closed wedge compression fracture of T10 vertebra with routine healing, subsequent encounter [S22.070D Start: 11-14-2024 X-ray of lumbar spine, two or three views Lumbar Spine 2 or 3 Views [facility] Start: 11-07-2024 End: 11-07-2024 ambulatory 11/07/2024 9:40 AM EDT Visit (SP) Office Hematology/Oncology [address] [place] [address] Richard Jenkins DO [address] [place] [address] 6 MO OV/MRI 05/07 &CT 11/07* Hematology/Oncology Comment on above: 6 MO OV/MRI 05/07 &CT 11/07* Start: 11-02-2024 DIABETES SCREEN DIABETES SCREEN [facility] Start: 10-31-2024 End: 10-31-2024 Patient encounter procedure Cat Scan Comment on above: 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] Start: 10-23-2024 End: 10-23-2024 Patient encounter procedure 10/23/2024 3:00 PM EDT Office Visit Endocrinology [address] [place] [address] Delicia Díaz MD [address] [place] [address] Gynecomastia [N62] Endocrinology Comment on above: Gynecomastia [N62] Start: 10-20-2024 DIABETES SCREEN DIABETES SCREEN [facility] Start: 10-15-2024 Patient discharge [facility] Start: 10-07-2024 End: 01-06-2025 Basic metabolic 2000 panel - Serum or Plasma [facility] Comment on above: Expected: 10/07/2024, Expires: 5 Start: 10-07-2024 End: 07-09-2025 LIPID PANEL, NONFASTING [facility] Comment on above: Expected: 10/07/2024, Expires: 6 Start: 10-07-2024 End: 10-07-2024 Patient encounter procedure 10/07/2024 12:40 PM EDT Office Visit [facility] [address] [place] [address] Usha Mcgovern PA-C [address] [place] [address] 6 month follow up [facility] Comment on above: 6 month follow up Start: 10-04-2024 Annual PCP Team Chronic Disease Visit Annual PCP Team Chronic Disease Visit [facility] Start: 10-04-2024 Creatinine measurement Serum Creatinine [facility] Start: 10-04-2024 Hepatitis B surface antibody level LDL Cholesterol [facility] Start: 10-03-2024 DIABETES SCREEN DIABETES SCREEN [facility] Start: 09-22-2024 End: 09-22-2024 Patient encounter procedure 09/22/2024 7:20 AM EDT Office Visit Family Jaki Cheema [address] [place] [address] Yaw Singh MD [address] [place] [phone] Discuss MRI result and gynecomastia. [facility] Comment on above: Discuss MRI result and gynecomastia. Start: 09-17-2024 [facility] Start: 09-12-2024 Annual PCP Team Chronic Disease Visit Annual PCP Team Chronic Disease Visit [facility] Start: 09-12-2024 BP Controlled (<130/80) BP Controlled (<130/80) [facility] Start: 09-11-2024 End: 09-11-2024 Patient encounter procedure [facility] [place] Comment on above: 6 month follow up Start: 09-08-2024 DIABETES SCREEN DIABETES SCREEN [facility] Start: 08-27-2024 End: 08-27-2024 Patient encounter procedure Mammogram Comment on above: Dx: Gynecomastia [N62]; Subareolar mass of right breast [N63.41]; Esophageal adenocarcinoma (HCC) [C15.9] Comp- Gynecomastia, Subareolar mass Rt; Esophageal adenocarcinoma Start: 08-24-2024 DIABETES SCREEN DIABETES SCREEN [facility] Start: 08-11-2024 DIABETES SCREEN DIABETES SCREEN [facility] Start: 07-27-2024 DIABETES SCREEN DIABETES SCREEN [facility] Start: 07-11-2024 BP Controlled (<130/80) BP Controlled (<130/80) [facility] Start: 06-30-2024 Anesthesia vascular shunt/shunt revision ANESTH VASCULAR SHUNT SURG [facility] Start: 06-30-2024 Arteriovenous anastomosis open direct AV FUSION DIRECT ANY SITE [facility] Start: 06-30-2024 End: 09-29-2024 Choriogonadotropin.beta subunit [Units/volume] in Serum or Plasma [facility] Comment on above: Expected: 06/30/2024, Expires: Start: 06-30-2024 End: 09-29-2024 Estradiol (E2) [Mass/volume] in Serum or Plasma [facility] Comment on above: Expected: 06/30/2024, Expires: Start: 06-30-2024 End: 09-29-2024 Follitropin [Units/volume] in Serum or Plasma [facility] Comment on above: Expected: 06/30/2024, Expires: Start: 06-30-2024 End: 09-29-2024 Lutropin [Units/volume] in Serum or Plasma [facility] Comment on above: Expected: 06/30/2024, Expires: Start: 06-30-2024 End: 09-29-2024 Prolactin [Mass/volume] in Serum or Plasma [facility] Comment on above: Expected: 06/30/2024, Expires: Start: 06-30-2024 End: 09-29-2024 Testosterone [Mass/volume] in Serum or Plasma [facility] Comment on above: Expected: 06/30/2024, Expires: Start: 06-30-2024 End: 09-29-2024 Thyrotropin [Units/volume] in Serum or Plasma [facility] Work Phone: Comment on above: Expected: 06/30/2024, Expires: Start: 06-30-2024 Patient discharge [facility] Start: 06-20-2024 End: 06-20-2024 Social Work 06/20/2024 10:30 AM EDT Social Work [facility] [address] [address] [address] [place] [address] PRE KID EVAL - PHONE CALL [facility] Comment on above: PRE KID EVAL - PHONE CALL Start: 06-18-2024 Annual PCP Team Chronic Disease Visit Annual PCP Team Chronic Disease Visit [facility] Start: 06-18-2024 Covid-19 Vaccine () Covid-19 Vaccine () [facility] Comment on above: Postponed from 12/08/2022 (Declined at t his time) Start: 06-18-2024 Hepatitis B surface antibody level LDL Cholesterol [facility] Start: 06-11-2024 End: 06-11-2024 ambulatory 06/11/2024 4:00 PM EST Results Only [facility] [address] [place] [address] lab [facility] Comment on above: lab Start: 06-11-2024 End: 09-10-2024 ALGN RABBIT EPITHELIUM IGE [facility] Comment on above: Expected: 06/11/2024, Expires: Start: 06-11-2024 End: 09-10-2024 BLOOD TB SCREEN [facility] Comment on above: Expected: 06/11/2024, Expires: Start: 06-11-2024 End: 09-10-2024 Chronic hepatitis differentiation between hepatitis B and C virus panel - Serum or Plasma [facility] Comment on above: Expected: 06/11/2024, Expires: Start: 06-11-2024 End: 09-10-2024 Comprehensive metabolic 2000 panel - Serum or Plasma [facility] Comment on above: Expected: 06/11/2024 (Approximate), Expi res: 09/10/2024 Start: 06-11-2024 End: 09-10-2024 Cytomegalovirus IgG Ab [Units/volume] in Serum or Plasma [facility] [employer] Work Phone: Comment on above: Expected: 06/11/2024, Expires: Start: 06-11-2024 End: 09-10-2024 Bety Marie virus capsid IgG Ab [Units/volume] in Serum [facility] Comment on above: Expected: 06/11/2024, Expires: Start: 06-11-2024 End: 09-10-2024 HEPATITIS A ANTIBODY, IGG [facility] Comment on above: Expected: 06/11/2024, Expires: Start: 06-11-2024 End: 09-10-2024 HIV 1+2 Ab [Presence] in Serum or Plasma by Immunoassay [facility] Comment on above: Expected: 06/11/2024, Expires: Start: 06-11-2024 End: 09-10-2024 Parathyrin.intact [Mass/volume] in Serum or Plasma [facility] Comment on above: Expected: 06/11/2024 (Approximate), Expi res: 09/10/2024 Start: 06-11-2024 End: 09-10-2024 Phosphate [Mass/volume] in Serum or Plasma [facility] Comment on above: Expected: 06/11/2024 (Approximate), Expi res: 09/10/2024 Start: 06-11-2024 End: 09-10-2024 Prostate Specific Ag Free [Mass/volume] in Serum or Plasma [facility] Comment on above: Expected: 06/11/2024 (Approximate), Expi res: 09/10/2024 Start: 06-11-2024 End: 09-10-2024 RUBEOLA (MEASLES)IGG [facility] Comment on above: Expected: 06/11/2024, Expires: Start: 06-11-2024 End: 09-10-2024 STRONGYLOIDES IGG BL [facility] Comment on above: Expected: 06/11/2024, Expires: Start: 06-11-2024 End: 09-10-2024 SYPHILIS TREPONEMAL W/REFLEX [facility] Comment on above: Expected: 06/11/2024, Expires: Start: 06-11-2024 End: 09-10-2024 TRANSPLANT CONFIRM ABO/RH [facility] Comment on above: Expected: 06/11/2024 (Approximate), Expi res: 09/10/2024 Start: 06-11-2024 End: 09-10-2024 TYPE + SCREEN [facility] Comment on above: Expected: 06/11/2024 (Approximate), Expi res: 09/10/2024 Start: 06-11-2024 End: 09-10-2024 VARICELLA ZOSTER IGG [facility] Comment on above: Expected: 06/11/2024, Expires: Start: 06-11-2024 End: 06-11-2024 Nutrition therapy 06/11/2024 9:45 AM EST Education Nutrition Therapy [address] [address] Vicente Addison, RD [address] [place] [address] pre kid eval Nutrition Therapy Comment on above: pre kid eval Start: 06-11-2024 End: 06-11-2024 Patient encounter procedure [facility] Comment on above: pre kid eval Start: 05-14-2024 End: 05-14-2024 Patient encounter procedure 05/14/2024 3:00 PM EST Office Visit Pulmonary Medicine [address] [place] [address] Helen Blair MD 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] Radiology Comment on above: 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] Start: 05-06-2024 End: 05-06-2024 Patient encounter procedure 05/06/2024 2:30 PM EST Office Visit Pulmonary Medicine [facility] [place] [address] [place] [address] Helen Blair MD [address] [address] 3 month follow up Pulmonary Medicine Comment on above: 3 month follow up Start: 05-02-2024 End: 05-02-2024 ambulatory 05/02/2024 3:30 PM EST Visit (SP) Office Hematology/Oncology [address] [place], [place] [id number] Richard Jenkins, [address] [place], [place] [phone] 3 MO OV/LAB & CT 04/17* Hematology/Oncology Comment on above: 3 MO OV/LAB & CT 04/17* Start: 04-17-2024 End: 04-17-2024 ambulatory 04/17/2024 8:30 AM EST Visit (SP) Office Hematology/Oncology [address] [place] [address] Richard Jenkins DO [address] [place] [address] 3 MO OV/LAB & CT 04/10* Hematology/Oncology Comment on above: 3 MO OV/LAB & CT 04/10* Start: 04-10-2024 End: 04-10-2024 Patient encounter procedure Cat Scan Comment on above: 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] Start: 04-10-2024 End: 04-10-2024 ambulatory [facility] Comment on above: CREATININE(S)* CREATININE(S)/ coppe r level* CBC/RETIC/CREATININE (S)/ copper level* Start: 04-09-2024 Advance Directive Discussion Advance Directive Discussion [facility] Start: 03-30-2024 Annual PCP Team Chronic Disease Visit Annual PCP Team Chronic Disease Visit [facility] Start: 03-30-2024 BP Controlled (<130/80) BP Controlled (<130/80) [facility] Start: 03-30-2024 RSV Vaccine (1 - 1-dose 60+ series) RSV Vaccine (1 - 1-dose 60+ series) [facility] Comment on above: Postponed from 2014 (Insurance Cov era) Start: 03-30-2024 RSV Vaccine (1 - Risk 60-74 years 1-dose series) RSV Vaccine (1 - Risk 60-74 years 1-dose series) [facility] Comment on above: Postponed from 2014 (Insurance Cov erage) Start: 03-30-2024 Shingrix Vaccine (1 of 2) Shingrix Vaccine (1 of 2) [facility] Comment on above: Postponed from 2004 (Insurance Cov erage) Start: 03-12-2024 End: 12-04-2024 Patient encounter procedure 03/12/2024 8:00 AM EST Office Visit [facility] [place] [address] [place] [address] Yaw Singh MD [address] [place] [address] Medicare wellness [facility] Comment on above: Medicare wellness Start: 03-11-2024 End: 06-10-2024 Comprehensive metabolic 2000 panel - Serum or Plasma COMPREHENSIVE METABOLIC PANEL Lab Routine Essential hypertension, benign Mixed hyperlipidemia CKD (chronic kidney disease) stage 4, GFR 15-29 ml/min ([facility]) Expected: 03/11/2024, Expires: 06/10/2024 [facility] Comment on above: Expected: 03/11/2024, Expires: Start: 03-11-2024 End: 06-10-2024 Hemoglobin A1c in Blood HEMOGLOBIN A1C Lab Routine Elevated blood sugar Expected: 03/11/2024, Expires: 06/10/2024 [facility] Comment on above: Expected: 03/11/2024, Expires: Start: 03-11-2024 End: 06-10-2024 LIPID PANEL, NONFASTING LIPID PANEL, NONFASTING Lab Routine Essential hypertension, benign Mixed hyperlipidemia Expected: 03/11/2024, Expires: 06/10/2024 [facility] [employer] Work Phone: Comment on above: Expected: 03/11/2024, Expires: Start: 03-11-2024 End: 06-10-2024 Magnesium [Mass/volume] in Serum or Plasma MAGNESIUM Lab Routine Gastroesophageal reflux disease, unspecified whether esophagitis present Medication management Expected: 03/11/2024, Expires: 06/10/2024 [facility] Comment on above: Expected: 03/11/2024, Expires: Start: 03-11-2024 End: 06-10-2024 Prostate specific Ag [Mass/volume] in Serum or Plasma PROSTATE-SPECIFIC ANTIGEN DIAGNOSTIC Lab Routine Prostate disorder Expected: 03/11/2024, Expires: 06/10/2024 [facility] Comment on above: Expected: 03/11/2024, Expires: Start: 03-11-2024 End: 06-10-2024 Thyrotropin [Units/volume] in Serum or Plasma THYROID STIMULATING HORMONE Lab Routine Cold intolerance Expected: 03/11/2024, Expires: 06/10/2024 [facility] Comment on above: Expected: 03/11/2024, Expires: Start: 03-11-2024 End: 03-11-2024 Patient encounter procedure 03/11/2024 9:40 AM EST Office Visit [facility] [place] [address] [place], [place] [address] Yaw Singh MD [address] [place], [place] [phone] Medicare Wellness [facility] Comment on above: Medicare Wellness Start: 03-07-2024 End: 06-06-2024 CBC W Auto Differential panel - Blood COMPLETE BLOOD COUNT AND DIFFERENTIAL Lab Routine Iron deficiency anemia due to chronic blood loss Expected: 03/07/2024, Expires: 06/06/2024 [facility] Comment on above: Expected: 03/07/2024, Expires: Start: 03-07-2024 End: 06-06-2024 Cobalamin (Vitamin B12) [Mass/volume] in Serum or Plasma VITAMIN B12 Lab Routine Gastroesophageal reflux disease, unspecified whether esophagitis present Medication management Expected: 03/07/2024, Expires: 06/06/2024 [facility] Comment on above: Expected: 03/07/2024, Expires: Start: 03-07-2024 End: 06-06-2024 Comprehensive metabolic 2000 panel - Serum or Plasma COMPREHENSIVE METABOLIC PANEL Lab Routine Essential hypertension, benign Mixed hyperlipidemia Expected: 03/07/2024, Expires: 06/06/[address] 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 Expected: 03/07/2024, Expires: 06/06/2024 [facility] Comment on above: Expected: 03/07/2024, Expires: Start: 03-07-2024 End: 06-06-2024 Magnesium [Mass/volume] in Serum or Plasma MAGNESIUM Lab Routine Gastroesophageal reflux disease, unspecified whether esophagitis present Medication management Expected: 03/07/2024, Expires: 06/06/2024 [facility] Comment on above: Expected: 03/07/2024, Expires: Start: 03-07-2024 End: 06-06-2024 Urinalysis complete panel - Urine URINALYSIS, WITH MICROSCOPIC Lab Routine Essential hypertension, benign Mixed hyperlipidemia Expected: 03/07/2024, Expires: 06/06/2024 [facility] Comment on above: Expected: 03/07/2024, Expires: Start: 02-20-2024 Annual PCP Team Chronic Disease Visit Annual PCP Team Chronic Disease Visit [facility] Start: 02-04-2024 End: 05-05-2024 Bacteria identified in Body fluid by Culture BODY FLUID CULTURE AND GRAM STAIN Microbiology Routine Pleural effusion Expected: 02/04/2024, Expires: 05/05/2024 [facility] Comment on above: Expected: 02/04/2024, Expires: Start: 02-04-2024 End: 05-05-2024 BODY FLUID CELL COUNT BODY FLUID CELL COUNT Lab Routine Pleural effusion Expected: 02/04/2024, Expires: 05/05/[address] [facility] Work Phone: Comment on above: Expected: 02/04/2024, Expires: Start: 02-04-2024 End: 05-05-2024 CYTOLOGY NON-SOLE BUFFER CYTOLOGY NON-SOLE BUFFER Lab Routine Pleural effusion Expected: 02/04/2024, Expires: 05/05/2024 [facility] Comment on above: Expected: 02/04/2024, Expires: Start: 02-04-2024 End: 05-05-2024 Glucose [Mass/volume] in Body fluid GLUCOSE, BODY FLUID Lab Routine Pleural effusion Expected: 02/04/2024, Expires: 05/05/2024 [facility] Comment on above: Expected: 02/04/2024, Expires: Start: 02-04-2024 End: 05-05-2024 Lactate dehydrogenase [Enzymatic activity/volume] in Body fluid LACTATE DEHYDROGENASE, BODY FLUID Lab Routine Pleural effusion Expected: 02/04/2024, Expires: 05/05/2024 [facility] Comment on above: Expected: 02/04/2024, Expires: Start: 02-04-2024 End: 05-05-2024 Lactate dehydrogenase [Enzymatic activity/volume] in Serum or Plasma LACTATE DEHYDROGENASE Lab Routine Pleural effusion Expected: 02/04/2024, Expires: 05/05/2024 [facility] Comment on above: Expected: 02/04/2024, Expires: Start: 02-04-2024 End: 05-05-2024 Microorganism identified in Unspecified specimen by Culture AFB CULT + STAIN Microbiology Routine Pleural effusion Expected: 02/04/2024, Expires: 05/05/2024 [facility] Comment on above: Expected: 02/04/2024, Expires: Start: 02-04-2024 End: 05-05-2024 pH of Body fluid PH BODY FLUID Lab Routine Pleural effusion Expected: 02/04/2024, Expires: 05/05/2024 [facility] Comment on above: Expected: 02/04/2024, Expires: Start: 02-04-2024 End: 05-05-2024 Protein [Mass/volume] in Body fluid PROTEIN, BODY FLUID Lab Routine Pleural effusion Expected: 02/04/2024, Expires: 05/05/2024 [facility] Comment on above: Expected: 02/04/2024, Expires: Start: 02-04-2024 End: 05-05-2024 Protein [Mass/volume] in Serum or Plasma PROTEIN, TOTAL Lab Routine Pleural effusion Expected: 02/04/2024, Expires: 05/05/2024 [facility] Comment on above: Expected: 02/04/2024, Expires: Start: 01-31-2024 End: 01-31-2024 Patient encounter procedure 01/31/2024 9:30 AM EDT Office Visit Pulmonary Medicine [address] [place] [address] Zachary Berkowitz APRN.WILDLIFE CONSERVATION OFFICER [address] [place] [address] ?ASTHMA//6 month follow up Pulmonary Medicine Comment [...] (Vitamin B12) [Mass/volume] in Serum or Plasma [facility] Comment on above: Expected: 01/15/2024, Expires: Start: 01-15-2024 End: 04-15-2024 COPPER BLOOD [facility] Comment on above: Expected: 01/15/2024, Expires: Start: 01-15-2024 End: 04-15-2024 Ferritin [Mass/volume] in Serum or Plasma [facility] Comment on above: Expected: 01/15/2024, Expires: Start: 01-15-2024 End: 04-15-2024 Folate [Mass/volume] in Serum or Plasma [facility] Comment on above: Expected: 01/15/2024, Expires: Start: 01-15-2024 End: 04-15-2024 Iron and Iron binding capacity panel - Serum or Plasma [facility] Work Phone: Comment on above: Expected: 01/15/2024, Expires: Start: 01-15-2024 End: 04-15-2024 Transferrin receptor.soluble [Mass/volume] in Serum or Plasma [facility] Comment on above: Expected: 01/15/2024, Expires: Start: 01-15-2024 End: 01-15-2024 ambulatory 01/15/2024 8:50 AM EDT Visit (SP) Office Hematology/Oncology [address] [place], [place] [phone] Richard Jenkins DO [address] [place], [place] [id number] 2MO OV * Hematology/Oncology Comment on above: 2MO OV * Start: 01-10-2024 End: 04-10-2024 CBC W Auto Differential panel - Blood COMPLETE BLOOD COUNT AND DIFFERENTIAL Lab Routine Anemia, unspecified type Expected: 01/10/2024, Expires: 04/10/[address] [facility] Work Phone: Comment on above: Expected: 01/10/2024, Expires: Start: 01-03-2024 End: 04-03-2024 Iron and Iron binding capacity panel - Serum or Plasma [facility] Work Phone: Comment on above: Expected: 01/03/2024, Expires: Start: 01-03-2024 End: 01-03-2024 Patient encounter procedure 01/03/2024 11:00 AM EDT Office Visit Family Medicine [place] [address] [place], [place] [id number] Yaw Singh MD [address] [place] [address] Discharged from [facility] 12/27/23 - New dialysis, Respiratory Failure [facility] Comment on above: Discharged from [facility] 4 - New dialysis, Respiratory Failure Start: 01-02-2024 End: 01-02-2024 ambulatory 01/02/2024 11:30 AM EDT Visit (SP) Office Hematology/Oncology [address] [place] [id number] Richard Jenkins DO [address] [place] [address] 2MO OV * Hematology/Oncology Comment on above: 2MO OV * Start: 01-01-2024 End: 04-01-2024 CBC W Auto Differential panel - Blood COMPLETE BLOOD COUNT AND DIFFERENTIAL Lab Routine Excessive bleeding Expected: 01/01/2024, Expires: 04/01/[address] [facility] Work Phone: Comment on above: Expected: 01/01/2024, Expires: Start: 12-09-2023 Covid-19 Vaccine ( season) Covid-19 Vaccine ( season) [facility] Start: 12-09-2023 Covid-19 Vaccine ( season) Covid-19 Vaccine ( season) [facility] Start: 12-09-2023 Influenza vaccination Influenza Vaccine (#1) [facility] Start: 11-27-2023 End: 11-27-2023 Patient encounter procedure 11/27/2023 3:40 PM EDT Office Visit Endocrinology [address] [place] [phone] Delicia Díaz MD [address] [place] [id number] medication consult Endocrinology Comment on above: medication consult Start: 10-09-2023 End: 10-09-2023 Patient encounter procedure 10/09/2023 8:45 AM EDT Office Visit Pulmonary Medicine [address] [place] [address] Helen Blair MD 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] Pulmonary Medicine Comment on above: Chronic pleural effusion [J90]; Malignan t neoplasm of lower third of esophagus (HCC) [C15.5] Start: 10-05-2023 End: 10-05-2023 ambulatory 10/05/2023 12:00 PM EDT OT/PT/Speech Visit [facility] [address] [place], [place] [id number] Tye Flores, PT [address] [place] [address] S22.070D (ICD-10-CM) - Closed wedge compression fracture of T10 vertebra with routine healing, subsequent encounter [facility] Comment on above: S22.070D (ICD-10-CM) - Closed wedge comp ression fracture of T10 vertebra with routine healing, subsequent encounter Start: 10-05-2023 End: 10-05-2023 Patient encounter procedure 10/05/2023 9:40 AM EDT Office Visit Family [facility] [address] [place] [address] Yaw Singh MD [address] [place] [address] 6 month follow up Family [facility] [place] Comment on above: 6 month follow up Start: 10-04-2023 End: 10-04-2023 Patient encounter procedure 10/04/2023 7:40 AM EDT Office Visit Family [facility] [address] [place] [address] Danielle Kelly APRN.WILDLIFE CONSERVATION OFFICER [address] [place] [address] 6 month follow up Family [facility] [place] Comment on above: 6 month follow up Start: 09-28-2023 End: 12-28-2023 Urinalysis complete panel - Urine URINALYSIS, WITH MICROSCOPIC Lab Routine Nephrolithiasis Expected: 09/28/2023, Expires: 12/28/2023 [facility] Comment on above: Expected: 09/28/2023, Expires: Start: 09-25-2023 End: 09-25-2023 Admission to same day surgery center 09/25/2023 12:30 PM EDT - 09/25/2023 1:49 PM EDT Surgery Angio [address] [place] [address] Luke Villalobos MD [address], [address] [address] BONE BIOPSY TROCAR/NEEDLE DEEP Angio Comment on above: BONE BIOPSY TROCAR/NEEDLE DEEP Start: 09-25-2023 End: 09-25-2023 Biopsy bone trocar/needle deep BONE BIOPSY TROCAR/NEEDLE DEEP Malignant neoplasm of lower third of esophagus (HCC) Abnormal MRI, spine 09/25/2023 12:30 PM EDT ANGIO HB6 Start: 09-25-2023 Subsequent hospital visit by physician 09/25/2023 12:30 PM EDT Hospital Encounter Angio [address] [place] [address] Luke Villalobos MD [address], [address] [address] 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] Angio Comment on above: 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] Start: 09-21-2023 End: 09-21-2023 Patient encounter procedure 09/21/2023 8:00 AM EDT Office Visit Cardiology [address] [place] [address] Pleural effusion [J90]; TRIPATHI (dyspnea on exertion) [R06.09] Cardiology Comment on above: Pleural effusion [J90]; TRIPATHI (dyspnea on exertion) [R06.09] Start: 09-20-2023 End: 09-20-2023 ambulatory 09/20/2023 8:30 AM EDT OT/PT/Speech Visit [facility] [address] [place] [address] Tye Flores, PT [address] [place] [address] S22.070D (ICD-10-CM) - Closed wedge compression fracture of T10 vertebra with routine healing, subsequent encounter [facility] Comment on above: S22.070D (ICD-10-CM) - Closed wedge comp ression fracture of T10 vertebra with routine healing, subsequent encounter Start: 09-18-2023 End: 12-18-2023 Basic metabolic 2000 panel - Serum or Plasma BASIC METABOLIC PANEL Lab Routine Elevated serum creatinine Expected: 09/18/2023, Expires: 12/18/[address] [facility] Work Phone: Comment on above: Expected: 09/18/2023, Expires: Start: 09-13-2023 End: 12-13-2023 Basic metabolic 2000 panel - Serum or Plasma [facility] Comment on above: Expected: 09/13/2023, Expires: Start: 09-13-2023 End: 12-13-2023 Natriuretic peptide.B prohormone N-Terminal [Mass/volume] in Serum or Plasma [facility] Comment on above: Expected: 09/13/2023, Expires: Start: 09-13-2023 End: 12-13-2023 Urinalysis complete panel - Urine [facility] Comment on above: Expected: 09/13/2023, Expires: Start: 09-10-2023 End: 09-10-2023 Patient encounter procedure 09/10/2023 8:40 AM EDT Appointment Radiology [address] [place] [address] Pathological fracture of thoracic vertebra, initial encounter [M84.48XA] Radiology Comment on above: Pathological fracture of thoracic verteb ra, initial encounter [M84.48XA] Start: 09-06-2023 End: 09-06-2023 ambulatory 09/06/2023 5:15 PM EDT OT/PT/Speech Visit [facility] [address] [place] [address] Tye Flores, PT [address] [place] [address] back pain [facility] Comment on above: back pain Start: 08-30-2023 End: 08-30-2023 ambulatory 08/30/2023 5:15 PM EDT OT/PT/Speech Visit [facility] [address] [place] [address] Tye Flores, PT [address] [place] [address] back pain [facility] Comment on above: back pain Start: 08-23-2023 End: 08-23-2023 ambulatory 08/23/2023 5:15 PM EDT OT/PT/Speech Visit [facility] [address] [place] [address] Tye Flores, PT [address] [place] [address] back pain [facility] Comment on above: back pain Start: 08-16-2023 End: 08-16-2023 ambulatory 08/16/2023 11:30 AM EDT OT/PT/Speech Visit [facility] [address] [place] [address] Tye Flores, PT [address] [place] [address] back pain [facility] Comment on above: back pain Start: 08-10-2023 ANNUAL PCP TEAM CHRONIC DISEASE VISIT ANNUAL PCP TEAM CHRONIC DISEASE VISIT [facility] Start: 08-10-2023 BP CONTROLLED (<130/80) BP CONTROLLED (<130/80) [facility] Start: 08-10-2023 COVID-19 VACCINE (#1) COVID-19 VACCINE (#1) [facility] Comment on above: Postponed from 1954 (Declined at t his time) Start: 08-10-2023 End: 08-10-2023 ambulatory 08/10/2023 10:00 AM EDT Visit (SP) Office Hematology/Oncology [address] [place] [address] Richard Jenkins DO [address] [place] [address] OV PER 07/19/23 TE/CT 08/02* Hematology/Oncology Comment on above: OV PER 07/19/23 TE/CT 08/02* Start: 08-03-2023 End: 11-02-2023 CREATININE BLD CREATININE BLD Lab STAT Malignant neoplasm of lower third of esophagus (HCC) Expected: 08/03/2023, Expires: 11/02/[address] [facility] Work Phone: Comment on above: Expected: 08/03/2023, Expires: Start: 08-03-2023 End: 08-03-2023 Patient encounter procedure Cat Scan Comment on above: 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] Start: 08-03-2023 End: 08-03-2023 ambulatory 08/03/2023 7:45 AM EDT Results Only Anette Farmer [facility] [address] [place] [address] CREATININE(S)* [facility] Comment on above: CREATININE(S)* Start: 06-19-2023 End: 09-18-2023 Amylase [Enzymatic activity/volume] in Serum or Plasma [facility] Work Phone: Comment on above: Expected: 06/19/2023, Expires: Start: 06-19-2023 End: 09-18-2023 Comprehensive metabolic 2000 panel - Serum or Plasma [facility] Work Phone: Comment on above: Expected: 06/19/2023, Expires: 4 Start: 06-19-2023 End: 09-18-2023 Lipase [Enzymatic activity/volume] in Serum or Plasma [facility] Work Phone: Comment on above: Expected: 06/19/2023, Expires: 4 Start: 05-25-2023 BP CONTROLLED (<130/80) BP CONTROLLED (<130/80) [facility] Start: 04-09-2023 Advance Directive Discussion Advance Directive Discussion [facility] Start: 03-17-2023 BP CONTROLLED (<130/80) BP CONTROLLED (<130/80) [facility] Start: 02-20-2023 Hepatitis B surface antibody level LDL CHOLESTEROL [facility] Start: 02-09-2023 ANNUAL PCP TEAM CHRONIC DISEASE VISIT ANNUAL PCP TEAM CHRONIC DISEASE VISIT [facility] Start: 02-09-2023 BP CONTROLLED (<130/80) BP CONTROLLED (<130/80) [facility] Start: 02-09-2023 SHINGRIX VACCINE (1 of 2) SHINGRIX VACCINE (1 of 2) [facility] Comment on above: Postponed from 1973 (Insurance Cov erage) Postponed from 03/26 (Insurance Coverage) Start: 12-08-2022 Covid-19 Vaccine ( season) Covid-19 Vaccine ( season) [facility] Start: 12-08-2022 Influenza vaccination [facility] Start: 08-24-2022 BP CONTROLLED (<130/80) BP CONTROLLED (<130/80) [facility] Start: 08-09-2022 End: 10-09-2022 Basic metabolic 2000 panel - Serum or Plasma BASIC METABOLIC PNL Lab Routine Mixed hyperlipidemia Essential hypertension, benign Expected: 08/09/2022, Expires: 10/09/[address] [facility] Work Phone: Comment on above: Expected: 08/09/2022, Expires: 3 Start: 08-09-2022 End: 10-09-2022 CBC W Auto Differential panel - Blood CBC + DIFF Lab Routine Iron deficiency anemia due to chronic blood loss Expected: 08/09/2022, Expires: 10/09/[address] [facility] Work Phone: Comment on above: Expected: 08/09/2022, Expires: 3 Start: 08-09-2022 End: 10-09-2022 LIPID PANEL, NONFASTING LIPID PANEL, NONFASTING Lab Routine Mixed hyperlipidemia Expected: 08/09/2022, Expires: 10/09/[address] [facility] Work Phone: Comment on above: Expected: 08/09/2022, Expires: 3 Start: 07-27-2022 Hepatitis B surface antibody level LDL CHOLESTEROL [facility] Start: 07-19-2022 ANNUAL PCP TEAM CHRONIC DISEASE VISIT ANNUAL PCP TEAM CHRONIC DISEASE VISIT [facility] Start: 04-09-2022 ADVANCE DIRECTIVE DISCUSSION ADVANCE DIRECTIVE DISCUSSION [facility] Start: 02-09-2022 End: 04-11-2022 CBC W Auto Differential panel - Blood CBC + DIFF Lab Routine Iron deficiency anemia due to chronic blood loss Expected: 02/09/2022, Expires: 04/11/[address] [facility] Work Phone: Comment on above: Expected: 02/09/2022, Expires: 3 Start: 02-09-2022 End: 04-11-2022 Cobalamin (Vitamin B12) [Mass/volume] in Serum or Plasma VITAMIN B12 BLOOD Lab Routine Gastroesophageal reflux disease, unspecified whether esophagitis present Medication management Expected: 02/09/2022, Expires: 04/11/[address] [facility] Work Phone: Comment on above: Expected: 02/09/2022, Expires: 3 Start: 02-09-2022 End: 04-11-2022 Comprehensive metabolic 2000 panel - Serum or Plasma COMP METABOLIC PANEL Lab Routine Essential hypertension, benign Mixed hyperlipidemia Expected: 02/09/2022, Expires: 04/11/[address] [facility] Work Phone: Comment on above: Expected: 02/09/2022, Expires: 3 Start: 02-09-2022 End: 04-11-2022 Iron and Iron binding capacity panel - Serum or Plasma IRON + TIBC Lab Routine Iron deficiency anemia due to chronic blood loss Expected: 02/09/2022, Expires: 04/11/[address] 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 Work Phone: Comment on above: Expected: 02/09/2022, Expires: 3 Start: 02-09-2022 End: 04-11-2022 Magnesium [Mass/volume] in Serum or Plasma MAGNESIUM BLD Lab Routine Gastroesophageal reflux disease, unspecified whether esophagitis present Medication management Expected: 02/09/2022, Expires: 04/11/[address] [facility] Work Phone: Comment on above: Expected: 02/09/2022, Expires: 3 Start: 02-09-2022 End: 04-11-2022 Prostate specific Ag [Mass/volume] in Serum or Plasma PSA/PROSTSPECAG DIAG Lab Routine Prostate disorder Expected: 02/09/2022, Expires: 04/11/[address] [facility] Work Phone: Comment on above: Expected: 02/09/2022, Expires: 3 Start: 02-09-2022 End: 04-11-2022 Urinalysis complete panel - Urine URINALYSIS, WITH MICROSCOPIC Lab Routine Essential hypertension, benign Mixed hyperlipidemia Expected: 02/09/2022, Expires: 04/11/[address] [facility] Work Phone: Comment on above: Expected: 02/09/2022, Expires: 3 Start: 01-07-2022 Hepatitis B surface antibody level LDL CHOLESTEROL [facility] Start: 12-08-2021 Influenza vaccination INFLUENZA (#1) [facility] Start: 07-16-2021 DTaP/Tdap/Td vaccine (2 - Td) DTaP/Tdap/Td vaccine (2 - Td) [place] Start: 04-09-2021 ADVANCE DIRECTIVE DISCUSSION ADVANCE DIRECTIVE DISCUSSION [facility] Start: 11-03-2020 BP CONTROLLED (<130/80) BP CONTROLLED (<130/80) [facility] Start: 04-16-2020 [facility]inine [facility] Start: 04-16-2020 Potassium monitoring Potassium monitoring [facility] Start: 03-04-2020 Creatinine monitoring Creatinine monitoring [facility] Work Phone: Start: 03-04-2020 Potassium monitoring Potassium monitoring [facility] Work Phone: Start: 02-22-2020 Creatinine monitoring Creatinine monitoring [facility] Start: 02-22-2020 Potassium monitoring Potassium monitoring [facility] Start: 12-26-2019 Annual Wellness Visit (AWV) Annual Wellness Visit (AWV) [facility] Start: 12-09-2019 Influenza vaccination Flu vaccine (#1) [facility] Start: 04-16-2019 End: 04-16-2019 Office Visit [facility] Start: 2019 Pneumococcal 65+ years Vaccine (2 of 2 - PPSV23) Pneumococcal 65+ years Vaccine (2 of 2 - PPSV23) [facility] Work Phone: Start: 03-12-2019 End: 03-12-2019 Office Visit 03/12/2019 Office Visit Cardiology 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, COMPUTER CONSOLE OPERATOR - WILDLIFE CONSERVATION OFFICER [address] [place] [address] [phone] [facility] Start: 03-05-2019 End: 03-05-2019 Appointment 03/05/2019 Appointment Radiology [facility] [address] Start: 03-03-2019 End: 03-03-2019 Appointment 03/03/2019 Appointment General Surgery Tyshawn Magallanes MD [address] [place] [address] [phone] Jp Zhao MD [address] [place] [address] [phone] [facility] General Surgery Start: 12-08-2018 Influenza vaccination Flu vaccine (#1) [facility] Start: 07-20-2018 Creatinine monitoring Creatinine monitoring [facility] Start: 07-20-2018 Potassium monitoring Potassium monitoring [place] Start: 12-26-2017 FECAL OCCULT BLOOD FECAL OCCULT BLOOD [facility] Start: 12-26-2017 Screening for malignant neoplasm of colon Fecal Occult Blood [facility] Start: 2014 RSV Vaccine (1 - 1-dose 60+ series) RSV Vaccine (1 - 1-dose 60+ series) [facility] Start: 2014 RSV Vaccine (1 - Risk 60-74 years 1-dose series) RSV Vaccine (1 - Risk 60-74 years 1-dose series) [facility] Start: 2004 Shingles Vaccine (1 of 2) Shingles Vaccine (1 of 2) [place] Start: 2004 SHINGRIX VACCINE (1 of 2) SHINGRIX VACCINE (1 of 2) [facility] Start: 1999 COLOGUARD (FIT-DNA) COLOGUARD (FIT-DNA) [facility] Start: [address] COLONOGRAPHY [facility] Start: 1999 Screening for malignant neoplasm of colon [facility] Start: 1999 SIGMOIDOSCOPY SIGMOIDOSCOPY [facility] Start: 1994 Diabetes screen Diabetes screen [place], [place] Start: 1973 SHINGRIX VACCINE (1 of 2) SHINGRIX VACCINE (1 of 2) [facility] Start: 1972 Anxiety Screening Anxiety Screening [facility] Start: 1969 HIV screen HIV screen [place] Start: 1969 HIV screening HIV screen [place] Start: 1966 COVID-19 VACCINE (1) COVID-19 VACCINE (1) [facility] Start: 1964 Lipid panel Lipid screen [place] Start: 1964 Lipid screen Lipid screen [place] Start: 1959 COVID-19 VACCINE (#1) COVID-19 VACCINE (#1) [facility] Start: 1954 COVID-19 VACCINE (#1) COVID-19 VACCINE (#1) [facility] Start: 1954 Hepatitis C screen Hepatitis C screen [place], [place] Start: 1954 Hepatitis C screening Hepatitis C screen [facility] [place] End: 02-21-2019 Bacteria identified Cx Nom (U) Urine Culture Microbiology Routine Nonrheumatic aortic valve stenosis 1 Occurrences starting 02/21/2019 until 02/21/[address] [facility] [employer] [facility] Comment on above: 1 Occurrences starting 02/21/2019 until 02/21/2019 Bacteria identified Cx Nom (U) Urine Culture Microbiology Routine Nonrheumatic aortic valve stenosis 02/21/2019 11:20 AM EST [facility] [place] Basic metabolic 2000 panel Basic Metabolic Panel Lab Routine Daily until discontinued starting 03/03/2019, [address] [facility] [place] Comment on above: Daily until discontinued starting 2018, 2 completed End: 12-07-2025 BD DXA TRABECULAR BONE SCORE (TBS) BD DXA TRABECULAR BONE SCORE (TBS) Radiology Routine Malignant neoplasm of lower third of esophagus (HCC) 1 Occurrences starting 11/07/2024 until 12/07/2025 [facility] Comment on above: 1 Occurrences starting 11/07/2024 until 12/07/2025 CBC CBC Lab Routine Daily until discontinued starting 03/03/2019, [address] [facility] [place] Comment on above: Daily until discontinued starting 2018, 2 completed End: 12-02-2022 Ct abdomen & pelvis w/contrast material CT ABD/PEL W IVCON Radiology Routine Malignant neoplasm of lower third of esophagus (HCC) 1 Occurrences starting 11/02/2021 until 12/02/[address] [facility] Work Phone: Comment on above: 1 Occurrences starting 11/02/2021 until 12/02/2022 End: 09-21-2023 Ct abdomen & pelvis w/contrast material CT ABD/PEL W IVCON Radiology Routine Malignant neoplasm of lower third of esophagus (HCC) 1 Occurrences starting 08/22/2022 until 09/21/[address] [facility] Work Phone: Comment on above: 1 Occurrences starting 08/22/2022 until 09/21/2023 Ct abdomen & pelvis w/contrast material CT ABD/PEL W IVCON Radiology Routine Malignant neoplasm of lower third of esophagus (HCC) 02/13/2023 10:14 AM EST [facility] Work Phone: End: 08-17-2024 CT Abdomen and Pelvis W contrast IV CT ABD/PEL W IVCON Radiology Routine Malignant neoplasm of lower third of esophagus (HCC) 1 Occurrences starting 07/19/2023 until 08/17/[address] [facility] Work Phone: Comment on above: 1 Occurrences starting 07/19/2023 until 08/17/2024 CT Abdomen and Pelvi s W contrast IV CT ABD/PEL W IVCON Radiology Routine Malignant neoplasm of lower third of esophagus (HCC) 08/03/2023 9:29 AM EDT [facility] End: 12-07-2025 CT Abdomen and Pelvis W contrast IV CT ABD/PEL W IVCON Radiology Routine Malignant neoplasm of lower third of esophagus (HCC) 1 Occurrences starting 11/07/2024 until 12/07/2025 [facility] Comment on above: 1 Occurrences starting 11/07/2024 until 12/07/2025 End: 02-13-2025 CT Abdomen and Pelvis WO contrast CT ABD/PEL WO IVCON Radiology Routine Malignant neoplasm of lower third of esophagus (HCC) 1 Occurrences starting 01/15/2024 until 02/13/2025 [facility] Comment on above: 1 Occurrences starting 01/15/2024 until 02/13/2025 CT Abdomen and Pelvi s WO contrast CT ABD/PEL WO IVCON Radiology Routine Malignant neoplasm of lower third of esophagus (HCC) 04/17/2024 2:21 PM [facility] End: 06-01-2025 CT Abdomen and Pelvis WO contrast CT ABD/PEL WO IVCON Radiology Routine Malignant neoplasm of lower third of esophagus (HCC) 1 Occurrences starting 05/02/2024 until 06/01/2025 [facility] Comment on above: 1 Occurrences starting 05/02/2024 until 06/01/2025 CT Abdomen and Pelvi s WO contrast CT ABD/PEL WO IVCON Radiology Routine Malignant neoplasm of lower third of esophagus (HCC) 10/31/2024 10:23 AM [facility] End: 08-17-2024 CT Chest W contrast IV CT CHEST W IVCON Radiology Routine Malignant neoplasm of lower third of esophagus (HCC) 1 Occurrences starting 07/19/2023 until 08/17/[address] [facility] Work Phone: Comment on above: 1 Occurrences starting 07/19/2023 until 08/17/2024 CT Chest W contrast IV CT CHEST W IVCON Radiology Routine Malignant neoplasm of lower third of esophagus (HCC) 08/03/2023 9:29 AM EDT [facility] Work Phone: End: 12-02-2022 CT CHEST W IVCON CT CHEST W IVCON Radiology Routine Malignant neoplasm of lower third of esophagus (HCC) 1 Occurrences starting 11/02/2021 until 12/02/[address] [facility] Work Phone: Comment on above: 1 Occurrences starting 11/02/2021 until 12/02/2022 End: 09-21-2023 CT CHEST W IVCON CT CHEST W IVCON Radiology Routine Malignant neoplasm of lower third of esophagus (HCC) 1 Occurrences starting 08/22/2022 until 09/21/[address] [facility] Work Phone: Comment on above: 1 Occurrences starting 08/22/2022 until 09/21/2023 CT CHEST W IVCON CT CHEST W IVCO N Radiology Routine Malignant neoplasm of lower third of esophagus (HCC) 02/13/2023 10:14 AM EST [facility] Work Phone: End: 02-13-2025 CT Chest WO contrast CT CHEST WO IVCON Radiology Routine Malignant neoplasm of lower third of esophagus (HCC) 1 Occurrences starting 01/15/2024 until 02/13/2025 [facility] Comment on above: 1 Occurrences starting 01/15/2024 until 02/13/2025 CT Chest WO contrast CT CHEST WO IVCON Radiology Routine Malignant neoplasm of lower third of esophagus (HCC) 04/17/2024 2:21 PM EST [facility] Work Phone: End: 06-01-2025 CT Chest WO contrast CT CHEST WO IVCON Radiology Routine Malignant neoplasm of lower third of esophagus (HCC) 1 Occurrences starting 05/02/2024 until 06/01/[address] [facility] Work Phone: Comment on above: 1 Occurrences starting 05/02/2024 until 06/01/2025 CT Chest WO contrast CT CHEST WO IVCON Radiology Routine Malignant neoplasm of lower third of esophagus (HCC) 10/31/2024 10:23 AM EDT [facility] Work Phone: DXA Bone [Mass/Area] Bone density [facility] End: 12-07-2025 DXA Skeletal system.axial Views for bone density DXA-AXIAL SKELETON Radiology Routine Malignant neoplasm of lower third of esophagus (HCC) Collapsed vertebra, not elsewhere classified, lumbar region, initial encounter for fracture (HCC) 1 Occurrences starting 11/07/2024 until 12/07/[address] [facility] Work Phone: Comment on above: 1 Occurrences starting 11/07/2024 until 12/07/2025 ECG COMPLETE ECG COMPLETE ECG Routine Pre-transplant evaluation for kidney transplant 06/11/2024 3:54 PM EST [facility] End: 09-12-2024 Echocardiography ECHO Cardiology Routine Pleural effusion TRIPATHI (dyspnea on exertion) 1 Occurrences starting 09/13/2023 until 09/12/[address] [facility] Work Phone: Comment on above: 1 Occurrences starting 09/13/2023 until 09/12/2024 End: 05-28-2024 EGD - THERAPEUTIC, EUS, OR TUBE INTERVENTIONS EGD - THERAPEUTIC, EUS, OR TUBE INTERVENTIONS Endoscopy Routine Malignant neoplasm of esophagus, unspecified location (HCC) 1 Occurrences starting 05/28/2023 until 05/28/[address] [facility] Work Phone: Comment on above: 1 Occurrences starting 05/28/2023 until 05/28/2024 End: 08-04-2022 EGD DIAGNOSTIC EGD DIAGNOSTIC Endoscopy Routine Malignant neoplasm of lower third of esophagus (HCC) 1 Occurrences starting 08/04/2021 until 08/04/[address] [facility] Work Phone: Comment on above: 1 Occurrences starting 08/04/2021 until 08/04/2022 End: 09-07-2022 EGD DIAGNOSTIC EGD DIAGNOSTIC Endoscopy Routine Malignant neoplasm of lower third of esophagus (HCC) 1 Occurrences starting 09/07/2021 until 09/07/[address] [facility] Work Phone: Comment on above: 1 Occurrences starting 09/07/2021 until 09/07/2022 End: 11-09-2022 EGD DIAGNOSTIC EGD DIAGNOSTIC Endoscopy Routine Malignant neoplasm of lower third of esophagus (HCC) 1 Occurrences starting 11/09/2021 until 11/09/[address] [facility] Work Phone: Comment on above: 1 Occurrences starting 11/09/2021 until 11/09/2022 EKG 12 lead [facility] EL Donis Comment on above: Daily until discontinued starting 2018, 2 completed Guidance for percutaneous biopsy of Bone IMAGING GUIDED BIOPSY VERTEBRA OR FEMUR Radiology Routine Malignant neoplasm of lower third of esophagus (HCC) Abnormal MRI, spine Ordered: 09/14/[address] [facility] Work Phone: Comment on above: Ordered: 09/14/2023 Guidance for thoracentesis of Chest IMAGING GUIDED THORACENTESIS Radiology Routine Pleural effusion Ordered: 02/04/2024 [facility] Comment on above: Ordered: 02/04/2024 Incentive spirometry Incentive s pirometry Respiratory Care Routine Every 2hr while awake until discontinued starting 03/03/2019 [facility] Comment on above: Every 2hr while awake until discontinued starting 03/03/2019 Influenza virus A an d B RNA and SARS-CoV-2 (COVID-19) N gene panel - Respiratory specimen by YEISON with probe detection COVID WITH FLUA+B, ROUTINE Microbiology Routine Acute cough Ordered: 03/17/[address] [facility] Work Phone: Comment on above: Ordered: 03/17/2022 Initiate Oxygen Ther apy Protocol Initiate Oxygen Therapy Protocol Respiratory Care Routine Daily until discontinued starting 03/03/2019 [facility] Comment on above: Daily until discontinued starting 2018 End: 06-11-2025 KID K/P PANC REC INIT W/U KID K/P PANC REC INIT W/U ALLOGEN Routine Pre-transplant evaluation for kidney transplant 1 Occurrences starting 06/11/2024 until 06/11/2025 [facility] Comment on above: 1 Occurrences starting 06/11/2024 until 06/11/2025 KID K/P PANC REC INI T W/U KID K/P PANC REC INIT W/U ALLOGEN Routine Pre-transplant evaluation for kidney transplant 06/11/2024 4:13 PM EST [facility] End: 07-30-2025 MG Breast - bilateral Diagnostic ROCAEL DIAGNOSTIC BILATERAL Radiology Routine Gynecomastia Subareolar mass of right breast Esophageal adenocarcinoma (HCC) 1 Occurrences starting 06/30/2024 until 07/30/2025 [facility] Comment on above: 1 Occurrences starting 06/30/2024 until 07/30/2025 End: 09-08-2024 MR Thoracic spine WO and W contrast IV MRI THORACIC SPINE WO/W IVCON Radiology Routine Pathological fracture of thoracic vertebra, initial encounter 1 Occurrences starting 08/10/2023 until 09/08/[address] [facility] Work Phone: Comment on above: 1 Occurrences starting 08/10/2023 until 09/08/2024 End: 06-01-2025 MR Thoracic spine WO and W contrast IV MRI THORACIC SPINE WO/W IVCON Radiology Routine Malignant neoplasm of lower third of esophagus (HCC) Closed wedge compression fracture of T10 vertebra with delayed healing, subsequent encounter 1 Occurrences starting 05/02/2024 until 06/01/2025 [facility] Comment on above: 1 Occurrences starting 05/02/2024 until 06/01/2025 End: 03-22-2024 Mri spinal canal thoracic w/o & w/contr matrl MRI THORACIC SPINE WO/W IVCON Radiology Routine Esophageal adenocarcinoma (HCC) Compression fracture of thoracic vertebra, unspecified thoracic vertebral level, initial encounter (HCC) 1 Occurrences starting 02/21/2023 until 03/22/[address] [facility] Work Phone: Comment on above: 1 Occurrences starting 02/21/2023 until 03/22/2024 End: 07-18-2024 NM Biliary ducts and Gallbladder Views for patency of biliary structures and ejection fraction W sincalide and W radionuclide IV NM HEPATOBILIARY W EF AND/OR RX Radiology Routine RUQ pain Nausea 1 Occurrences starting 06/19/2023 until 07/18/[address] [facility] Work Phone: Comment on above: 1 Occurrences starting 06/19/2023 until 07/18/2024 End: 04-27-2024 NM PET/CT SKULL-THIGH SUBSEQUENT NM PET/CT SKULL-THIGH SUBSEQUENT Radiology Routine Malignant neoplasm of lower third of esophagus (HCC) 1 Occurrences starting 03/29/2023 until 04/27/[address] [facility] Work Phone: Comment on above: 1 Occurrences starting 03/29/2023 until 04/27/2024 Patient Education [facility] Work Phone: Patient referral [facility] Work Phone: PREPARE RBC (CROSSMATCH) [place], [place] End: 02-21-2019 PREPARE RBC (CROSSMATCH), 2 Units PREPARE RBC (CROSSMATCH), 2 Units Blood Bank Routine Nonrheumatic aortic valve stenosis 1 Occurrences starting 02/21/2019 until 02/21/2019 [place], [place] Comment on above: 1 Occurrences starting 02/21/2019 until 02/21/2019 Pulse oximetry, continuous Pulse oximetry, continuous Respiratory Care Routine Every 4hr until discontinued starting 03/03/2019 [place], [place] Comment on above: Every 4hr until discontinued starting RECIPIENT NOTIFICATION RECIPIENT NOTIFICATION ALLOGEN Routine Pre-transplant evaluation for kidney transplant Ordered: 06/11/2024 [facility] Comment on above: Ordered: 06/11/2024 End: 02-13-2025 RF Gastrointestinal tract upper Views W barium contrast PO XR UPPER GI SINGLE CONTRAST Radiology Routine Malignant neoplasm of lower third of esophagus (HCC) Early satiety Nausea 1 Occurrences starting 01/15/2024 until 02/13/2025 [facility] Comment on above: 1 Occurrences starting 01/15/2024 until 02/13/2025 SURGICAL PATHOLOGY [facility] Work Phone: Comment on above: Release Upon Ordering for 1 Occurrences starting 09/07/2021, 1 completed SURGICAL PATHOLOGY SURGICAL PATH OLOGY Lab Routine Malignant neoplasm of esophagus, unspecified location (HCC) Pre-op exam Malignant neoplasm of lower third of esophagus (HCC) Essential hypertension, benign Mixed hyperlipidemia 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 Gastroesophageal reflux disease, unspecified whether esophagitis present Aortic valve stenosis, etiology of cardiac valve disease unspecified Release Upon Ordering for 1 Occurrences starting 06/05/[address] [facility] Work Phone: Comment on above: Release Upon Ordering for 1 Occurrences starting 06/05/2023 End: 09-30-2022 Thyroxine (T4) free [Mass/volume] in Serum or Plasma T4 FREE/FREE THYROX Lab Routine Esophageal adenocarcinoma (HCC) Acquired hypothyroidism Iron deficiency anemia due to chronic blood loss Every other week for 26 Occurrences starting 09/30/2021 until 09/30/[address] [facility] Work Phone: Comment on above: Every other week for 26 Occurrences star ting 09/30/2021 until 09/30/2022 End: 07-18-2024 US Abdomen RUQ US ABD RIGHT UPPER QUADRANT Radiology Routine RUQ pain Nausea 1 Occurrences starting 06/19/2023 until 07/18/[address] [facility] Work Phone: Comment on above: 1 Occurrences starting 06/19/2023 until 07/18/2024 US Abdomen RUQ US ABD RIGHT UPP ER QUADRANT Radiology Routine RUQ pain Nausea 06/28/2023 11:15 AM EDT [facility] Work Phone: End: 07-30-2025 US Breast - right limited US BREAST LTD RIGHT Radiology Routine Gynecomastia Subareolar mass of right breast Esophageal adenocarcinoma (HCC) 1 Occurrences starting 06/30/2024 until 07/30/2025 [facility] Comment on above: 1 Occurrences starting 06/30/2024 until 07/30/2025 End: 10-12-2024 XR Chest PA and Lateral XR CHEST 2V FRONTAL/LAT Radiology Routine Pleural effusion TRIPATHI (dyspnea on exertion) 1 Occurrences starting 09/13/2023 until 10/12/2024 [facility] Comment on above: 1 Occurrences starting 09/13/2023 until 10/12/2024 XR Chest PA and Lateral XR CHEST 2V FRONTAL/LAT Radiology Routine Pleural effusion TRIPATHI (dyspnea on exertion) 09/13/2023 8:13 AM EDT [facility] End: 11-07-2024 XR Chest PA and Lateral XR CHEST 2V FRONTAL/LAT Radiology Routine Pleural effusion 1 Occurrences starting 10/09/2023 until 11/07/[address] [facility] Work Phone: Comment on above: 1 Occurrences starting 10/09/2023 until 11/07/2024 End: 03-01-2025 XR Chest PA and Lateral XR CHEST 2V FRONTAL/LAT Radiology Routine Pleural effusion 1 Occurrences starting 01/31/2024 until 03/01/[address] [facility] Work Phone: Comment on above: 1 Occurrences starting 01/31/2024 until 03/01/2025 End: 01-31-2024 XR Chest PA and Lateral [facility] Comment on above: 1 Occurrences starting 01/31/2024 until 01/31/2024 End: 03-05-2025 XR Chest PA and Lateral XR CHEST 2V FRONTAL/LAT Radiology Routine Pleural effusion 1 Occurrences starting 02/04/2024 until 03/05/2025 [facility] Comment on above: 1 Occurrences starting 02/04/2024 until 03/05/2025 End: 02-13-2025 XR GI SMALL BOWEL FOLLOW-THRU XR GI SMALL BOWEL FOLLOW-THRU Radiology Routine Malignant neoplasm of lower third of esophagus (HCC) Early satiety Nausea 1 Occurrences starting 01/15/2024 until 02/13/2025 [facility] Comment on above: 1 Occurrences starting 01/15/2024 until 02/13/2025 End: 11-06-2025 XR Lumbar spine AP and Lateral and oblique XR LUMBAR PARS DEFECT 4V AP/LAT/BOTH OBL Radiology Routine Lumbar back pain 1 Occurrences starting 10/07/2024 until 11/06/[address] [facility] Work Phone: Comment on above: 1 Occurrences starting 10/07/2024 until 11/06/2025 XR Lumbar spine AP a nd Lateral and oblique XR LUMBAR PARS DEFECT 4V AP/LAT/BOTH OBL Radiology Routine Lumbar back pain 10/07/2024 2:02 PM EDT [facility] Immun[facility] Immunization Date Immunization Notes Care Provider Les infante 08-19-2024 Hepatitis B vaccine (recombinant), CpG adjuvanted Yaw Smith APRN.WILDLIFE CONSERVATION OFFICER Work Phone: [facility] 07-22-2024 Hepatitis B vaccine (recombinant), CpG adjuvanted Yaw Smith APRN.WILDLIFE CONSERVATION OFFICER Work Phone: [facility] 06-17-2024 Hepatitis B vaccine (recombinant), CpG adjuvanted Yaw Smith APRN.WILDLIFE CONSERVATION OFFICER Work Phone: [facility] 05-07-2024 tetanus and diphther ia toxoids, adsorbed, preservative free, for adult use (5 Lf of tetanus toxoid and 2 Lf of diphtheria toxoid) Edwin Montes APRN.WILDLIFE CONSERVATION OFFICER Work Phone: [facility] 05-07-2024 TD(adult) unspecifie d formulation Edwin Montes APRN.WILDLIFE CONSERVATION OFFICER Work Phone: [facility] Work Phone: 04-22-2024 Hepatitis B vaccine (recombinant), CpG adjuvanted Maulik Aranda MD Work Phone: [facility] 02-18-2024 Hepatitis B vaccine (recombinant), CpG adjuvanted Maulik Aranda MD Work Phone: [facility] 02-01-2024 Seasonal, trivalent, recombinant, injectable influenza vaccine, preservative free Maulik Aranda MD Work Phone: [facility] 02-01-2024 influenza virus vaccine, unspecified formulation Usha Mcgovern PA-C Work Phone: [facility] 01-21-2024 Hepatitis B vaccine (recombinant), CpG adjuvanted Maulik Aranda MD Work Phone: [facility] 12-17-2023 Hepatitis B vaccine (recombinant), CpG adjuvanted Yaw Singh MD Work Phone: [facility] 12-11-2023 influenza, high dose seasonal, preservative-free Yaw Singh MD Work Phone: [facility] 11-30-2023 pneumococcal conjuga te (PCV20) vaccine, 20 valent (PREVNAR 20) Yaw Singh MD Work Phone: [facility] 03-30-2023 influenza (HD-IIV4) vaccine, age 65+ yr, high dose, quadrivalent, PF (FLUZONE HIGH-DOSE) Amos Rangel MD Work Phone: [facility] 03-30-2023 influenza virus vaccine, unspecified formulation Helen Blair MD Work Phone: [facility] 02-09-2022 influenza, high-dose , quadrivalent vaccine (FLUZONE HIGH DOSE QUADRIVALENT) Yaw Singh MD Work Phone: [facility] 02-09-2022 influenza virus vaccine, unspecified formulation Ct (I-Stat) Work Phone: [facility] 01-31-[address] Yaw Singh Work Phone: [facility] 01-31-2021 influenza, seasonal, injectable, preservative free Richard Jenkins DO Work Phone: [facility] 01-13-2021 influenza, high-dose , quadrivalent vaccine (FLUZONE HIGH DOSE QUADRIVALENT) Richard Jenkins DO Work Phone: [facility] 11-04-2019 pneumococcal polysaccharide vaccine, 23 valent Richard Jenkins DO Work Phone: [facility] 01-28-2018 Influenza, injectabl e, Madin Cody Canine Kidney, preservative free, quadrivalent Yaw Singh MD Work Phone: [facility] 01-28-2018 influenza, seasonal, injectable Richard Jenkins DO Work Phone: [facility] 01-28-2018 pneumococcal conjuga te vaccine, 13 valent Richard Mendezi DO Work Phone: [facility] 01-28-2018 tetanus toxoid, redu anahy diphtheria toxoid, and acellular pertussis vaccine, adsorbed Richard Goi DO Work Phone: [facility] 01-07-2018 influenza, injectabl e, quadrivalent, preservative free Yaw Singh MD Work Phone: [facility] 01-07-2018 tetanus toxoid, redu anahy diphtheria toxoid, and acellular pertussis vaccine, adsorbed Richard Mendezi DO Work Phone: [facility] 01-06-2017 influenza, injectabl e, quadrivalent, contains preservative Richard Goi DO Work Phone: [facility] 02-24-2016 influenza, injectabl e, quadrivalent, contains preservative Richard Goi DO Work Phone: [facility] 01-26-2015 influenza, injectabl e, quadrivalent, contains preservative Richard Goi DO Work Phone: [facility] 02-07-[address] Yaw Singh Work Phone: [facility] 02-07-2014 influenza, seasonal, injectable, preservative free Yaw Singh MD Work Phone: [facility] 07-17-2011 tetanus toxoid, redu anahy diphtheria toxoid, and acellular pertussis vaccine, adsorbed Richard Jenkins DO Work Phone: [facility] 01-21-2010 influenza virus vaccine, unspecified formulation Richard Jenkins DO Work Phone: [facility] 01-21-2010 pneumococcal polysaccharide vaccine, 23 valent Richard Jenkins DO Work Phone: [facility] 02-19-2009 influenza virus vaccine, unspecified formulation Richard Jenkins DO Work Phone: [facility] 02-02-2006 influenza virus vaccine, unspecified formulation Richard Jenkins DO Work Phone: [facility] Work Phone: Payers Date Payer Category Payer Self-pay [id number] 2019 Private Health Insurance MMO MED ICARE SUPPLEMENT Member Subscriber Plan / Payer (Effective 2019-Present) Name: Jacob Landa Relation to Subscriber: Self Name: Jacob Landa Payer ID: Not on file Type: Indemnity Address: [address] [id number] 2019 Unknown MMO MMO MEDICARE SUPPLEMENT [id number] 2019-Present [phone] [address] [place] [address] Indemnity [id number] 2019 Unknown MMO MMO MEDICARE SUPPLEMENT [id number] 2019-Present [phone] [address] [place] [address] Indemnity [id number] 2019 Unknown [id number] 2019 Medicare MEDICARE MEDICAR E A AND B [id number] 2019-Present [phone] [address] [address] [place] [address] Medicare [id number] 2019 Medicare [id number] 2019 Medicare [id number] 2014 Unknown [id number] 2014 Unknown [employer] xxxxxxxxx 2014-Present [phone] [id number] [place] [address] xxxxxxxxx [id number] Unknown [id number] Unknown [id number] 2.16.840.1.816282.3.579.2. 462 Unknown [id number] 2.16.840.1.215566.3.579.2. 462 Unknown [id number] 2.16.840.1.891126.3.579.2. 462 Unknown [id number] 2.16.840.1.360189.3.579.2. 462 Unknown [id number] 2.16.840.1.957325.3.579.2. 462 Unknown [id number] 2.16.840.1.263451.3.579.2. 462 Unknown [id number] 2.16.840.1.723538.3.579.2. 462 Unknown [id number] 2.16840.1.274451.3.579.2. 462 Unknown [id number] 2.840.1.973746.3.579.2. 462 Unknown [id number] 2.840.1.454061.3.579.2. 462 Unknown [id number] 2.16.840.1.183861.3.579.2. 462 Unknown [id number] 2.16.840.1.054322.3.579.2. 462 Unknown [id number] 2.16.840.1.753735.3.579.2. 462 Unknown [id number] 2.16840.1.656550.3.579.2. 462 Unknown [id number] 2.16.840.1.264954.3.579.2. 462 Unknown [id number] 2.16.840.1.127903.3.579.2. 462 Unknown [id number] 2.16.840.1.646476.3.579.2. 462 Unknown [id number] 2.16.840.1.176552.3.579.2. 462 Unknown [id number] 2.16.840.1.879128.3.579.2. 462 Unknown [id number] 2.16.840.1.317038.3.579.2. 462 Unknown [id number] 2.16.840.1.132402.3.579.2. 462 Unknown [id number] 2.16.840.1.063355.3.579.2. 462 Unknown [id number] 2.840.1.715710.3.579.2. 462 Unknown [id number] 2.16.840.1.639317.3.579.2. 462 Social History Date Type Detail Facility Start: 02-18-2019 End: 10-23-2024 Tobacco smoking status NHIS Never smoker [facility] Start: 02-18-2019 End: 04-16-2019 Alcohol intake Current non-drinker of alcohol (finding) [facility] Sex Assigned At Not on file [facility] Start: 03-03-2020 End: 10-23-2024 Tobacco use and exposure Never used [facility] Start: 07-17-2021 End: 02-09-2022 Exposure to SARS-CoV-2 (event) Not sure [facility] Start: 07-27-2021 End: 11-14-2024 Alcohol intake Ex-drinker (finding) [facility] Start: 05-14-2020 History SDOH Alcohol Comment none [facility] Start: 1955 Sex Assigned At Male C [facility] Start: 06-23-2022 Tobacco smoking stat us WVIS Unknown if ever smoked [facility] Start: 06-27-2014 None [facility] Start: 06-27-2014 Spouse/ Signif icant Other [facility] Start: 08-22-2022 End: 09-22-2024 History of Social function [facility] Start: 08-22-2022 End: 09-22-2024 Tobacco use panel [facility] Start: 03-10-2012 Adult Depression Screening Assessment 0 [facility] Start: 05-18-2020 Gender identity Identifies as male gender (finding) [facility] Start: 05-18-2020 Sexual orientation Heterosexual (louis christensen) [facility] How often to you hav e a drink containing alcohol? Never [facility] Start: 06-19-2024 End: 06-30-2024 Sex Male (finding) [facility] Has the [employer], [employer], [employer], or water company threatened to shut off services in your home in past 12Mo No [facility] (I/We) worried wheth er (my/our) food would run out before (I/we) got money to buy more. Never true [facility] NEGATED: Highlighted rowStart: NINF History of tobacco use Passive smoker [facility] Medical Equipment Procedure Code Equipment Code Equipment Original Text Equipment Identifier Dates Primary uncemented hemiarthroplasty of hip ([id number]) Uncoated hip femur prosthesis, one-piece ()[id number] FDA Start: 02-15-2024 Primary uncemented hemiarthroplasty of hip ([id number]) Uncoated hip femur prosthesis, one-piece ()[id number] FDA Start: 02-15-2024 Primary uncemented hemiarthroplasty of hip Coated hip femur prosthesis, modular ()[id number] FDA Start: 02-15-2024 Insertion, catheter, hemodialysis CATHETER,CVD [...] 1:11 PM EDT Ezekiel Vasques RN No [facility] 08-16-2020 Are you blind, or do you have serious difficulty seeing, even when wearing glasses No 08/16/2020 1:11 PM EDT Ezekiel Vasques RN No [facility] 08-16-2020 Do you have serious difficulty walking or climbing stairs No 08/16/2020 1:11 PM EDT Ezekiel Vasques RN No [facility] 08-16-2020 Do you have difficul ty dressing or bathing No 08/16/2020 1:11 PM EDT Ezekiel Vasques RN No [facility] 08-16-2020 Because of a physica l, mental, or emotional condition, do you have difficulty doing errands alone such as visiting a physician's office or shopping No 08/16/2020 1:11 PM EDT Ezekiel Vasques RN No [facility] Mental Status Date Assessment Result Facility 06-30-2024 Cognitive function Voice/Name [facility] Work Phone: 08-16-2020 Because of a physica l, mental, or emotional condition, do you have serious difficulty concentrating, remembering, or making decisions No 08/16/2020 1:11 PM EDT Ezekiel Vasques RN No [facility] Clinical Notes 03-03-2019 to 12-24-2024 Telephone Encounter - Usha Mcgovern PA-C - 12/24/2024 11:18 AM EDTTelephone Encounter - Usha Mcgovern PA-C - 12/24/2024 11:18 AM Bobby Balbuena APRN.WILDLIFE CONSERVATION OFFICER - 12/24/2024 10:29 AM EDT Note Date & Type Note Facility 12-24-2024 Telephone encounter Note Noted. [facility] 12-24-2024 Miscellaneous Notes Noted. He's scheduled for [...] stating he had bone density test at [facility] and from results, was informed to touch base with Dr. Jenkins to see if he would want further testing. documented in this encounter [facility] 12-24-2024 History of Present illness Narrative URGENT [...] kidney disease) stage 4, GFR 15-29 ml/min ([facility]) 01/03/2024 On dialysis and seeing Dr. Greenberg. Closed wedge compression fracture of T10 vertebra (HCC) 07/12/2023 Compression fracture of lumbar vertebra (HCC) 11/14/202411/2024: L1-L5 seen Dr Davila and referred to pain management. Coronary artery disease involving paskenta coronary artery without angina pectoris Seeing Dr. 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 ferrous sulfate [...] new or worsening symptoms. and Recording using [employer] software for draft documentation of the visit was discussed with the patient/authorized compliance representative dealer; all questions welcomed and answered. Patient/authorized compliance representative dealer agreed to proceed Differential Diagnoses - Allergic [...] Drug use: No documented in this encounter [facility] 12-24-2024 Telephone encounter Note He's scheduled for 01/05 already. Jannet Goldsmith MA [facility] 12-23-2024 Telephone encounter Note See if patient wants to set up appt to discuss bone density results. [facility] 12-22-2024 Telephone encounter Note Spoke with pt. Informed he needed to speak with his PCP or ordering physician to discuss how they want to manage his osteoporosis. Pt. Voiced understanding. Isa Godoy LPN [facility] 12-22-2024 Telephone encounter Note Prescription Refill Information [...] Goldsmith MA December 22, 2024 7:06 AM [facility] 12-22-2024 Miscellaneous Notes Prescription Refill Information The [...] 2024 7:06 AM documented in this encounter [facility] 12-21-2024 Telephone encounter Note Bone density demonstrated osteoporosis. He should speak to the ordering provider or his PCP about management of that. Richard Jenkins DO [facility] 12-18-2024 Telephone encounter Note Reports printed and will be sent to scanning. Will place in Dr. Jenkins's mailbox for review. Elvira Noriega LPN [facility] 12-18-2024 Telephone encounter Note Patient called stating he had bone density test at [facility] and from results, was informed to touch base with Dr. Jenkins to see if he would want further testing. [facility] Work Phone: 11-11-2024 Miscellaneous Notes Spoke with patient and scheduled Nuria Sanches AVS 8 6 month F/U with CBC/CMP/CT scans CT scans 1 week prior to OV ,needs to have day before dialysis documented in this encounter [facility] 11-11-2024 Telephone encounter Note Spoke with patient and scheduled Nuria Sanches [facility] 11-07-2024 Telephone encounter Note AVS 8/ 6 month F/U with CBC/CMP/CT scans CT scans 1 week prior to OV ,needs to have day before dialysis [facility] 11-07-2024 History of Present illness Narrative Oncologic [...] abdomen: Dedicated CT abdomen pelvis dictated separately. [employer] (topogram) images: No additional findings. CT A/P [...] chest CT performed will be reported separately. [employer] (topogram) images: No additional findings. EGD/EUS 04/26/2020: [...] and paclitaxel. 05/24 through 06/23/2020. Underwent Adrián Roegr esophagectomy on 08/09/2020. Pathology: 1. Esophagus and [...] seat fell asleep and kicked back of lifter/driver's chair causing him instant and severe pain in lower thoracic area. Pain was most intense in March. MRI and PET reviewed by several radiologists. Consensus was no evidence of cancer and biopsy not recommended. He was seen at the spine center in [place]. Office visit 08/2023: Back pain significantly improved after passing kidney stones. Has days without back pain. 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 Here in the past couple weeks, I felt better than I felt since last summer." OV 01/15/2024: Has been hospitalized several times at [facility]. Developed end-stage renal disease and started [...] which included preparing to see the patient, [id number] patient care, completing clinical documentation, obtaining and/or reviewing separately obtained history, performing a medically appropriate examination, counseling and educating the patient/family/caregiver, ordering medications, tests, or procedures, communicating with other HCPs (not separately reported), and communicating results to the patient/family/caregiver. Richard Jenkins DO documented in this encounter [facility] 11-05-2024 History of Present illness Narrative POPULATION [...] 2024 1:05 PM documented in this encounter [facility] 10-31-2024 History of Present illness Narrative Radiology [...] PATIENT PRESENTS WITH AN IMPLANTABLE OR ATTACHED ADVANCE SEAL DELIVERY SYSTEM MAINTAINER: No RADIOLOGY DEPARTMENT: CT; Exam(s) Completed: Chest Abdomen Pelvis PERIPHERAL IV DATA: Not applicable SIGNED BY: RT Geno(R) October 31, 2024 1:40 PM documented in this encounter [facility] 10-23-2024 History of Present illness Narrative ENDOCRINOLOGY [...] vertebra (HCC) 07/12/2023 Coronary artery disease involving p[place]enta coronary artery without angina pectoris Seeing Dr. 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 ferrous sulfate [...] Moderate Delicia Díaz MD Endocrinology Associate Staff [facility] Endocrinology and Metabolism [place] [phone] documented in this encounter [facility] 10-17-2024 Telephone encounter Note Patient notified Cristine Caceres MA [facility] 10-17-2024 Miscellaneous Notes Patient notified Cristine Caceres MA Let patient know I would be ok with him trying the back brace to see if it provides some relief. Patient calls to ask if he needs to schedule with [facility] since he is scheduled here on [...] Brandie Bailey RN documented in this encounter [facility] 10-17-2024 Telephone encounter Note Let patient know I would be ok with him trying the back brace to see if it provides some relief. [facility] 10-17-2024 Telephone encounter Note Patient calls to ask if he needs to schedule with [facility] since he is scheduled here on 11/20/2024. Notified patient that the appointment on 11/20/2204 is for pain management so should also schedule with [facility]. Patient also asking if it would be ok to trial a back brace until he is seen by specialists. He thought maybe that would help keep his pain under a little more control. Would like provider's recommendation. Patient reports he would just pick one up from the drug store if Dr. Singh thought it would be beneficial. Brandie Bailey RN [facility] 10-15-2024 History and physical note Note Date/Time October 15, 2024 10:25am [facility] Medical Records Department [address] [place] [address] History & Physical Exam 10/15/24 1022 MR#: [id number] Acct: [id number] Name: JACOB LANDA Rep #:[id number] : 1955 69 From: Nikita Jackson MD PCP: Dr. Yaw Singh MD Status:[facility] Location: [facility] HPI - General HPI Narrative JACOB LANDA, is a 69 M who presents with ESRD currently using a left upper arm AV fistula without issue. He has a prior left IJ tunneled catheter he is no longer using and presents for removal. REPLACED BY [facility] Medical History Thrombocytopenia Wears glasses Cancer Cancer [...] Esophageal carcinoma Atherosclerosis of coronary artery of 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 Essential (primary) hypertension Non-rheumatic aortic stenosis Syncope and collapse Hyperlipidemia Atherosclerotic heart disease of p[place] coronary artery with other forms of angina [...] Jackson MD; Dr. Yaw Singh MD~ Signed [facility] Work Phone: 1(247) 849-639707-09-2025 History and physical note [facility] Medical Records Department [address] [place] [address] History & Physical Exam 10/15/24 1022 MR#: [id number] Acct: [id number] Name: JACOB LANDA Rep #:[id number] : 1955 69 From: Nikita Jackson MD PCP: Dr. Yaw Singh MD Status[facility] Location: [facility] HPI - General HPI Narrative JACOB LANDA, is a 69 M who presents with ESRD currently using a left upper arm AV fistula without issue. He has a prior left IJ tunneled catheter he is no longer using and presents for removal. REPLACED BY [facility] Medical History Thrombocytopenia Wears glasses Cancer Cancer [...] Esophageal carcinoma Atherosclerosis of coronary artery of 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 Essential (primary) hypertension Non-rheumatic aortic stenosis Syncope and collapse Hyperlipidemia Atherosclerotic heart disease of p[place] coronary artery with other forms of angina [...] Jackson MD; Dr. Yaw Singh MD~ Signed [facility]07-09-2025 [facility] Medical Records Department [address] [place] [address] History Physical Exam 10/15/24 1022 MR#: [id number] Acct: [id number] Name: JACOB LANDA Rep #: [id number] : 1955 69 From: Nikita Jackson MD PCP: Dr. Yaw Singh MD Status:[facility] Location[facility] HPI - General HPI Narrative JACOB LANDA, is a 69 M who presents with ESRD currently using a left upper arm AV fistula without issue. He has a prior left IJ tunneled catheter he is no longer using and presents for removal. REPLACED BY [facility] Medical History Thrombocytopenia Wears glasses Cancer Cancer [...] Esophageal carcinoma Atherosclerosis of coronary artery of 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 Essential (primary) hypertension Non-rheumatic aortic stenosis Syncope and collapse Hyperlipidemia Atherosclerotic heart disease of p[place] coronary artery with other forms of angina [...] with exertion or wheez (more content not included)...[facility]07-08-2025 Telephone encounter Note* Telephone Encounter - Krystina Quinones LPN - 10/14/2024 11:29 AM EDT Pt notified of Usha's message and instructions. Pt reports that he takes the Zetia but doesn't always take the Lipitor. Advised pt that he needs to be taking both. Pt verbalizes understanding. Krystina Quinones LPN [facility]07-08-2025 Miscellaneous Notes* Telephone Encounter - Krystina Quinones [...] aware office would fax over referral to [facility] and they would contact him to setup appt. Pt understood. Faxed all paperwork to [phone], updated referral in Epic. Pt asking about lab results he completed on 10/07/24. Notified pt I would route message to Provider. Jannet Goldsmith MA * Telephone Encounter - Usha Mcgovern PA-C - 10/13/2024 11:09 AM EDT Let patient know that his xray show multiple compression fractures. I will place consult to [facility] geoscience specialist to see if they recommend any other treatments. Continue with pain management as well. Usha Mcgovern PA-C [facility] Telephone encounter Note * Telephone Encounter - Usha Mcgovern PA-C - 10/14/2024 7:28 AM EDT Labs are stable. LDL is slightly higher than goal. At 122 with goal under 70. Watch saturated fasts in diet and makesure taking the lipitor and zetia. [facility]07-07-2025 Telephone encounter Note* Telephone Encounter - Jannet Goldsmith MA - 10/13/2024 3:44 PM EDT Call to pt and notified him of results and recommendations below from Provider. Made pt aware office would fax over referral to [facility] and they would contact him to setup appt. Pt understood. Faxed all paperwork to [phone], updated referral in Epic. Pt asking about lab results he completed on 10/07/24. Notified pt I would route message to Provider. Jannet Goldsmith MA [facility]07-07-2025 Telephone encounter Note* Telephone Encounter - Usha Mcgovern PA-C - 10/13/2024 11:09 AM EDT Let patient know that his xray show multiple compression fractures. I [facility] place [facility] to see if they recommend any other treatments. Continue with pain management as well. Usha Mcgovern PA-C [facility]07-01-2025 History of Present illness Narrative* Teresa Jeronimo [...] PATIENT PRESENTS WITH AN IMPLANTABLE OR ATTACHED ADVANCE SEAL DELIVERY SYSTEM MAINTAINER: No RADIOLOGY DEPARTMENT: General X-ray: Exam(s) Completed: Spine X-Ray(s): Lumbar AP/LAT obliques PERIPHERAL IV DATA: Not applicable SIGNED BY: RT Isabell(Bea) October 07, 2024 1:41 PM documented in this encounterV[facility]07-[facility]25 History of Present illness Narrative* Usha Mcgovern [...] Disease: - Under care of Dr. Scott, [facility]. - On dialysis 3 times a week (Tuesdays, , and Saturdays). - On kidney transplant list. Coronary Artery Disease: - Under care of Dr. Noland, utilization specialist at [facility]. Vascular Disease: - Under care of Dr. [...] kidney disease) stage 4, GFR 15-29 ml/min ([facility]) 01/03/2024 On dialysis and seeing Dr. Greenberg. 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 Pressure ulcer of unspecified buttock, stage 2 ([facility]) 01/03/2024 Bilaterally. Primary insomnia 03/30/2023 S/P [...] COLONOSCOPY W/BIOPSY SINGLE/MULTIPLE 02/22/2007 Diminutive polyp distal [id number] ECHO 01/08/2021 EGD 04/15/2020 HEART CATHETERIZATION 12/2018 [...] <AGE 11 Tonsillectomy TOT/SUB ESOPHAGECTOMY W/THORACOT 08/09/2020 [place] esophagectomy, jejunostomy tube placement TOTAL HIP [...] (FLONASE) 50 mcg/actuation nasal spray Use 1 [place] in each nostril once daily. ferrous sulfate [...] lipid panel. 3. 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(I25.10) - Clinically stable. [...] dialysis three times weekly. - Follow-up with [facility] . 7. 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 Patient/authorized compliance representative dealer agreed to proceed documented in [facility] encounter[facility] Telephone encounter Note * Telephone Encounter - Christiano Nolasco RN - 09/26/2024 4:56 PM EDT Pt called and is notified of providers results and instructions. Pt voices understanding. Transferred to scheduled to set up appt with Endocrinology. Christiano Nolasco RN [facility]06-20-2025 Miscellaneous Notes* Telephone Encounter - Christiano Nolasco RN - 09/26/2024 4:56 PM EDT Pt called and is notified of providers results and instructions. Pt voices understanding. Transferred to scheduled to set up appt with Endocrinology. Christiano Nolasco RN * Telephone Encounter - Yaw Singh MD - 09/26/2024 11:53 AM EDT Let patient know I received input from our local national stormwater leader and your recent labs and the gynecomastia. I would like for you to meet with her for further eval. She want to try to determine why the FSH, LH and prolactin are elevated and your testosterone level is normal. Order placed. documented in this encounterV[facility]06-[facility]-2025 Telephone encounter Note * Telephone Encounter - Yaw Singh MD - 09/26/2024 11:53 AM EDT Let patient know I received input from our local national stormwater leader and your recent labs and the gynecomastia. I would like for you to meet with her for further eval. She want to try to determine why the FSH, LH and prolactin are elevated and your testosterone level is normal. Order placed. [facility]06-16-2025 Instructions* Patient Instructions* Yaw Singh MD - [...] I will send a message to our national stormwater leader to ensure we are not missing anything [...] will follow up with you if the national stormwater leader provides any additional recommendations based onyour labs. Please reach out if you have any further questions or concerns. documented in this encounterVeter[facility]06-16-2025 History of Present illness Narrative* Yaw iSngh MD - 09/22/2024 7:22 AM EDT Chief [...] was hospitalized and subsequently transferred to a retirement. At thattime, a stroke was suspected but [...] ago Sunday, following a fistula procedure in [place]. He describes the area as feeling firm [...] vertebra (HCC) 07/12/2023 Coronary artery disease involving p[place] coronary artery without angina pectoris Seeing Dr. 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 ferrous sulfate [...] mIU/mL <0.6 Results MRI BRAIN WO JACINTO (Acc#[id number]) (Order [id number]) Patient Info Patient Name Sex Jacob Alba ([id number]) Male 1955 09/08/2024 3:46 PM - Radiology, [...] can be seen in setting of [facility]. Log Chain Worker: MORGAN Transcribe Date/Time: Sep 08 2024 3:29P [...] several weeks. Yaw Singh MD Recording using [employer] software for draft documentation of the visit was discussed with the patient/authorized compliance representative dealer; all questions welcomed and answered. Patient/authorized compliance representative dealer agreed to proceed documented in this encounterVeter[facility]06-12-2025 History of Present illness Narrative* Krystina Quinones LPN - 09/18/2024 7:29 AM EDT Scan on 09/17/2024 10:16 PM by Provider, External, PAHailyC: Consultation - Emergency Medicine documented in this encounterVeterans Health Administration06-11-2025 Discharge summary [facility] Medical Records Department [address] [place] [address] Emergency Department Summary 09/17/24 MR#: [id number] Acct: [id number] Name: JACOB LANDA Rep #:[id number] : [...] Esophageal carcinoma Atherosclerosis of coronary artery of 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 Essential (primary) hypertension Non-rheumatic aortic stenosis Syncope and collapse Hyperlipidemia Atherosclerotic heart disease of [place] coronary artery with other forms of angina [...] graft without anginapectoris, Thrombocytopenia, Current use of custodial anticoagulation, End-stage renal disease on hemodialysis Instructions: [...] to the emergency department immediately. Print Language: Jordanian Disposition Disposition: Home, Self Care What to do if you have Problems For any increased pain, shortness of breath, bleeding, nausea or vomiting, chestpain, or any unexpected problems, contact your Primary Care Provider. Call [facility] ([phone]) or report tothe closest Emergency Room. Call 911 if necessary. 09/17/242207 Cosigner Signature (if applicable): CC: Dr. Yaw Singh MD ~ Signed [facility]06-11-2025 Discharge summary Author Sushant Tom [facility] Note Date/Time September 17, 2024 10:0 8pm [facility] Medical Records Department [address] [place] [address] Emergency Department Summary 09/17/24 MR#: [id number] Acct: [id number] Name: JACOB LANDA Rep #:[id number] : [...] [facility] and prescribed muscle relaxant for his back [...] Esophageal carcinoma Atherosclerosis of coronary artery of 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 Essential (primary) hypertension Non-rheumatic aortic stenosis Syncope and collapse Hyperlipidemia Atherosclerotic heart disease of [place] coronary artery with other forms of angina [...] without angina pectoris, Thrombocytopenia, Current use of rat exterminator anticoagulation, End-stage renal disease on hemodialysis Instructions: [...] to the emergency department immediately. Print Language: Jordanian Disposition Disposition: Home, Self Care What to do if you have Problems For any increased pain, shortness of breath, bleeding, nausea or vomiting, chestpain, or any unexpected problems, contact your Primary Care Provider. Call [facility] ([phone]) or report to the closest Emergency Room. Call 911 if necessary. 09/17/242207 <Electronically signed by Sushant Tom MD> Cosigner Signature (if applicable): CC: Dr. Yaw Singh MD ~ Signed [facility] Work Phone: 1(265) 901-197806-11-2025 Hospital Discharge instructions Additional Instructions 1. Apply ice to your lower back 6-8 times a day for the next 3 to 5 days 2. Take medication as prescribed 3. If you are unable to urinate, loss of bowel control dragging your foot or or your knee [place] when you go up and down steps return to the emergency department immediately. [facility] Work Phone: 1(157) 217-134206-06-2025 History of Present illness Narrative* Yaw Smith APRN.WILDLIFE CONSERVATION OFFICER - 09/12/2024 8:45 AM EDT Images from [...] vertebra (HCC) 07/12/2023 Coronary artery disease involving p[place] coronary artery without angina pectoris Seeing Dr. 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 ferrous sulfate [...] of care. This note was generated using [employer] software. It may contain errors in wording, punctuation, or spelling. Yaw Smith APRN.WILDLIFE CONSERVATION OFFICER documented in this encounterVeterans Health Administration06-03-2025 Telephone encounter Note * Telephone Encounter - Yaw Singh MD - 09/09/2024 5:24 PM EDT Shazia can we get Jacob on my schedule for a 20 min appt to discuss his MRI results and gynecomasty sometime between 09/11/2024 and his routine appt with Usha (which he is to keep) on 10/07/2024 [facility]06-03-2025 Miscellaneous Notes* Telephone Encounter - Yaw Singh [...] management/discussion and neurology consideration. documented in this encounterVeterans Health Administration06-03-2025 Telephone encounter Note * Telephone Encounter - Tata Weems LPN - 09/09/2024 10:33 AM EDT Phoned patient and reviewed provider's message with him. Patient voiced understanding. Tata Weems LPN [facility]06-03-2025 Telephone encounter Note* Telephone Encounter - Tata [...] PCP for further management/discussion and neurology consideration. [facility]06-02-2025 Telephone encounter Note* Telephone Encounter - Yaw Singh MD - 09/08/2024 3:27 PM EDT Info below noted and agree. [facility]06-02-2025 Miscellaneous Notes* Telephone Encounter - Yaw Singh [...] contrast unless it was run by his grip first. I f radiology does not think that the MRI as ordered will benefit him, the I would recommend delayingand coordinating the imaging with his grip. Forwarding to PCP as FYI. * Telephone [...] as recommended by PCP. documented in this encounterVeterans Health Administration06-02-2025 Telephone encounter Note * Telephone Encounter - Stacia Adame MD - 09/08/2024 2:29 PM EDT With his CKD stage 4 I wanted to avoid contrast dye. I know that with some of the newer gadolinium based contrasts, it does not effect the kidneys as much, but I still would not feel comfortable withusing the contrast unless it was run by his grip first. I f radiology does not think that the MRI as ordered will benefit him, the I would recommend delayingand coordinating the imaging with his grip. Forwarding to PCP as FYI. [facility]06-02-[facility]25 History of Present illness Narrative* Gloria Sinclair [...] PATIENT PRESENTS WITH AN IMPLANTABLE OR ATTACHED ADVANCE SEAL DELIVERY SYSTEM MAINTAINER: No RADIOLOGY DEPARTMENT: MR; Exam(s) Completed: Head: Routine Brain. Lavender Administered: No PERIPHERAL IV DATA: Not applicable SIGNED BY: RT Arlen(Bea) September 08, 2024 3:10 PM documented in this encounterVeterans Health Administration06-02-2025 Telephone encounter Note * Telephone Encounter - [...] Bailey RN September 08, 2024 11:54 AM [facility]06-02-2025 Miscellaneous Notes* Telephone Encounter - Brandie Bailey [...] 08, 2024 11:54 AM documented in this encounterVeterans Health Administration05-30-2025 Telephone encounter Note * Telephone Encounter - Yaw Singh MD - 09/05/2024 1:09 PM EDT Noted. [facility]05-30-2025 Miscellaneous Notes* Telephone Encounter - Yaw Singh [...] removal of the tissue. documented in this encounterVeterans Health Administration05-30-2025 Telephone encounter Note * Telephone Encounter - Alberta Candelaria MA - 09/05/2024 11:29 AM EDT Patient notified and voiced understanding. Patient was not aware he need an MRI. Patient was unable to schedule right now was going to call back. Alberta Candelaria MA [facility]05-29-2025 Telephone encounter Note* Telephone Encounter - Yaw Singh MD - 09/04/2024 9:43 PM EDT Let patient know the mammogram and Us shows benign breast tissue on the right (Gynecomastia). See if he has the MRI set up and if so when. Would wait on this and if ok the next step would be to see surgeon for removal of the tissue. [facility]05-27-2025 Evaluation note* Diagnosis Onset Date Resolution Status [...] L5 vertebra acute November 14, 2024 9:28am [facility] Work Phone: [phone]) 630-938505-27-2025 Telephone encounter Note* Telephone Encounter - Erin Du LPN - 09/02/2024 8:47 AM EDT Last OV 05/02/24 Next OV 11/07/24 Pended Rx. Erin Du LPN [facility]05-27-2025 Miscellaneous Notes* Telephone Encounter - Erin Du LPN - 09/02/2024 8:47 AM EDT Last OV 05/02/24 Next OV 11/07/24 Pended Rx. Erin Du LPN * Telephone Encounter - Nuria Sanches - 09/02/2024 8:41 AM EDT Patient called for refill on Pantoprazole 40 mg and to send it to [facility]. He is all out. Nuria Sanches documented in this encounterVeterans Health Administration05-27-2025 Telephone encounter Note * Telephone Encounter - Nuria Sanches - 09/02/2024 8:41 AM EDT Patient called for refill on Pantoprazole 40 mg and to send it to [facility]. He is all out. Nuria Sanches [facility]05-21-2025 NoteHNO ID: [id number] Author: LUPE BLACK RT(R) Service: ? Author [...] PATIENT PRESENTS WITH AN IMPLANTABLE OR ATTACHED ADVANCE SEAL DELIVERY SYSTEM MAINTAINER: No RADIOLOGY DEPARTMENT: Mammography PERIPHERAL IV DATA: Not applicable SIGNED BY: RT Adam(R) August 27, 2024 9:52 [facility]05-14-2025 NoteHNO ID: [id number] Author: STEVE YOUSSEF PA-C Service: ? Author Type: Physician Promotional Representative Type: Progress Notes Filed: 08/20/2024 18:42 Note Text: This note was created using Powerphotonicriter. Subjective Jacob Landa is a 69 year [...] low Diagnostic procedures: low Management options: [facility] History of Present illness Narrative* Steve Youssef PA-C - 08/20/2024 6:32 PM EDT This note was created using [employer]. Subjective Jacob Landa is a 69 year [...] low Steve Youssef PA-C documented in this encounterVeterans Health Administration05-14-2025 History of Present illness Narrative* Maximiliano Sotomayor [...] PATIENT PRESENTS WITH AN IMPLANTABLE OR ATTACHED ADVANCE SEAL DELIVERY SYSTEM MAINTAINER: No RADIOLOGY DEPARTMENT: General X-ray: Exam(s) Completed: Spine X-Ray(s): Lumbar AP / LAT / L5-S1 PERIPHERAL IV DATA: Not applicable SIGNED BY: Barry Rubalcava August 20, 2024 8:48 AM documented in this encounterVeterans Health Administration05-14-2025 NoteHNO ID: [id number] Author: MAXIMILIANO SOTOMAYOR Tech Service: ? Author [...] PATIENT PRESENTS WITH AN IMPLANTABLE OR ATTACHED ADVANCE SEAL DELIVERY SYSTEM MAINTAINER: No RADIOLOGY DEPARTMENT: General X-ray: Exam(s) Completed: Spine X-Ray(s): Lumbar AP / LAT / L5-S1 PERIPHERAL IV DATA: Not applicable SIGNED BY: Barry Rubalcava August 20, 2024 8:48 [facility]05-13-2025 NoteHNO ID: [id number] Author: JOSUE OQUENDO RN Service: ? Author [...] 2024 2:19 [facility]05-13-2025 History of Present illness Narrative* Josue Oquendo [...] 19, 2024 2:19 PM documented in this encounterVeterans Health Administration05-13-2025 NotePatient Outreach ([facility]) JACOB LANDA ([id number]) 1955 M Date Time Provider Department 08/19/24 [...] (FLONASE) 50 mcg/actuation nasal spray Use 1 [place] in each nostril once daily. - ferrous [...] cancer [Z12.11] 11/24/2016 Obes (more content not included)...[facility]04-29-2025 NoteHNO ID: [id number] Author: JOSUE OQUENDO RN Service: ? Author [...] were you homeless or living in a assisted (including now)?: No Transportation Needs In the [...] 2024 12:56 [facility]04-29-2025 History of Present illness Narrative* Josue Oquendo [...] were you homeless or living in a assisted (including now)?: No Transportation Needs In the [...] In the past 12 months has the [employer], gas, oil, or water [employer] threatened to shut off services in your home?: No Tobacco Use Patient reports that he has never smoked. He has never used smokeless tobacco. Interventions The following were addressed during this visit: - Intake assessments completed: ADLs, Fall Risk, SDOH - Patient-stated goal addressed (add comment) - Bi-Weekly Outreach (Recurring) Josue Oquendo RN August 05, 2024 12:56 PM documented in this encounterVeterans Health Administration04-29-2025 NoteHNO ID: [id number] Author: MARCELA REAL PA Service: ? Author Type: Physician Promotional Representative Type: Progress Notes Filed: 08/05/2024 12:54 Note [...] kidney disease) stage 4, GFR 15-29 ml/min ([facility]) 01/03/2024 On dialysis and seeing Dr. Greenberg. Closed wedge compression fracture of T10 vertebra ([facility]) 07/12/2023 Coronary artery disease involving [place] coronary artery without angina pectoris Seeing Dr. 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 atorvastatin (LIPITOR) 80 mg tablet Take 1 tablet by mouth daily at bedtime. metoprolol tartrate, short acting, (LOP (more content not included)...[facility]04-29-2025 History of Present illness Narrative* Marcela [...] kidney disease) stage 4, GFR 15-29 ml/min ([facility]) 01/03/2024 On dialysis and seeing Dr. Greenberg. Closed wedge compression fracture of T10 vertebra ([facility]) 07/12/2023 Coronary artery disease involving [place] coronary artery without angina pectoris Seeing Dr. Noland DDD (degenerative disc disease), lumbar 11/04/2019 Elevated blood sugar 03/11/2024 Esophageal adenocarcinoma ([facility]) 08/09/2020 Essential hypertension, benign Family history of breast cancer 06/30/2024 Family history of ovarian cancer 06/30/2024 GERD (gastroesophageal reflux disease) 07/12/2009 History of kidney stones 07/20/2014 Iron deficiency anemia due to chronic blood loss 05/25/2020 Iron malabsorption 05/25/2020 Kidney stone Kyphosis (acquired) (postural) 07/30/[address] 03/11/2024 DPA: Lacho (step daughter) Malignant neoplasm of lower third of esophagus ([facility]) 04/15/2020 Medicare annual wellness visit, subsequent 01/13/2021 Medical B eligibilty date 03/09/19 Date of last exam 01/13/2021 Mixed hyperlipidemia MRSA (methicillin resistant Staphylococcus aureus) 12/01/2016 treated with course of Linezolid beginning 10/29/16 Nonrheumatic aortic valve disorder On tube feeding diet 08/14/2020 History: 65 year old male s/p [place] esophagectomy, Pyloromyotomy, Jejunostomy tube placement for esophageal adenocarcinoma -Diet: Isosource 1.5 to 50 cc hour with 100 cc water flushes 8 times per day and Bene protein 3 times per day Removed 11/17/2020 Personal history of colonic polyps 12/27/2009 Human Resources 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 ferrous sulfate [...] patient was discharged. Procedures documented in this encounterVeterans Health Administration04-29-2025 NotePatient Outreach ([facility]) JACOB LANDA ([id number]) 1955 M Date Time Provider Department 08/05/24 [...] were you homeless or living in a assisted (including now)?: No Transportation Needs In the [...] In the past 12 months has the [employer], gas, oil, or water [employer] threatened to shut off services in your [...] (FLONASE) 50 mcg/actuation nasal spray Use 1 [place] in each nostril once daily. - ferrous sulfate (SLOW FE) 137 mg (45 mg iron) TbER Take 1 tablet by mouth every other day. - ascorbic acid, vitamin C, (VITAMIN C) 500 mg tablet Take 1 tablet by mouth every other day. - ondansetron orally disintegrating (ZOFRAN ODT) 4 mg disintegrating tablet Take 1 tablet by mo (more content not included)...[facility] 07-29-2024 NoteHNO ID: [id number] Author: ALBERTA CANDELARIA MA Service: ? Author Type: Network Security Architect Type: Progress Notes Filed: 07/29/2024 16:19 Note Text: Scan on 07/22/2024 5:29 PM by ProviderDanette PA-C: Consultation - General Surgery - follow up on AVF on 07/01/2024 Alberta Candelaria [facility]04-22-2025 History of Present illness Narrative* Alberta Candelaria MA - 07/29/2024 4:18 PM EDT Scan on 07/22/2024 5:29 PM by ProviderDanette PA-C: Consultation - General Surgery - follow up on AVF on 07/01/2024 Alberta Candelaria MA documented in this encounterVeterans Health Administration04-15-2025 Evaluation note* Diagnosis Onset Date Resolution Status Admit Date AV fistula acute July 22 2:11pm AV fistula acute September 02, 2024 1:47pm Tunneled central venous cath eter present acute October 15, 2024 9 :01am [place] [employer] Work Phone: [phone]) 260-287704-04-2025 Telephone encounter Note* Telephone Encounter - Brandie Bailey RN - 07/11/2024 9:44 AM EDT See TE 07/11/2024. Brandie Bailey RN [facility]04-04-2025 Miscellaneous Notes* Telephone Encounter - Brandie Bailey RN - 07/11/2024 9:44 AM EDT See TE 07/11/2024. Brandie Bailey RN documented in this encounterVeterans Health Administration04-04-2025 Telephone encounter Note * Telephone Encounter - Brandie Bailey RN - 07/11/2024 9:42 AM EDT Patient calls and notified of results and providers instructions. Patient verbalizes understanding.Patient has scheduled mammogram and US. Will wait to schedule MRI-Brain once insurance authorization received. Brandie Bailey RN [facility]04-04-2025 Telephone encounter Note* Telephone Encounter - Stacia [...] mammogram and US as recommended by PCP. [facility]04-03-2025 Telephone encounter Note* Telephone Encounter - Isa [...] Godoy LPN July 10, 2024 7:48 AM [facility]04-03-2025 Miscellaneous Notes* Telephone Encounter - Isa Godoy [...] 10, 2024 7:48 AM documented in this encounterVeterans Health Administration03-28-2025 NoteHNO ID: [id number] Author: ALBERTA CANDELARIA MA Service: ? Author Type: Network Security Architect Type: Progress Notes Filed: 07/04/2024 12:23 Note Text: Scan on 06/30/2024 7:24 AM by Danette Houston PAHailyC: Consultation - Vascular Medicine/Vascular Surgery Scan on 06/30/2024 6:11 PM by Danette Houston PA-C: BENITEZ Candelaria, [facility]03-28-2025 History of Present illness Narrative* Alberta Candelaria MA - 07/04/2024 12:15 PM EDT Scan on 06/30/2024 7:24 AM by Provider, OPAL Samaniego: Consultation - Vascular Medicine/Vascular Surgery Scan on 06/30/2024 6:11 PM by Provider, OPAL Samaniego: BENITEZ Candelaria MA documented in this encounterVeterans Health Administration03-24-2025 NoteHNO ID: [id number] Author: YAW SINGH MD Service: ? Author [...] vertebra (HCC) 07/12/2023 Coronary artery disease involving p[place] coronary artery without angina pectoris Seeing Dr. [...] Malignant neoplasm of lower third of esophagus ([facility]) 04/15/2020 Medicare annual wellness visit, subsequent 01/13/2021 Medical B eligibilty date 03/09/19 Date of last exam 01/13/2021 Mixed hyperlipidemia MRSA (methicillin resistant Staphylococcus aureus) 12/01/2016 treated with course of Linezolid beginning 10/29/16 Nonrheumatic aortic valve disorder On tube feeding diet 08/14/2020 History: 65 year old male s/p [place] esophagectomy, Pyloromyotomy, Jejunostomy tube placement for esophageal adenocarcinoma -Diet: Isosource 1.5 to 50 cc hour with 100 cc water flushes 8 times per day and Bene protein 3 times per day Removed 11/17/2020 Personal history of colonic polyps 12/27/2009 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 Pressure ulcer of unspecified buttock, stage 2 ([facility]) 01/03/2024 Bilaterally. Primary insomnia 03/30/2023 S/P [...] COLONOSCOPY W/BIOPSY SINGLE/MULTIPLE 02/22/2007 Diminutive polyp distal [id number] ECHO 01/08/2021 EGD 04/15/2020 HEART CATHETERIZATION 12/2018 [...] TONSILLECTOMY PRIMARY/SECONDARY Tonsillectomy TOT/SUB ESOPHAGECTOMY W/THORACOT 08/09/2020 [place] esophagectomy, jejunostomy tube placement TOTAL HIP REPLACEMENT Left 02/15/2024 Family History FAMILY HISTORY Problem Relation Age of Onset Cancer Mother OVARIAN AND THYROID CA Breast Cancer Mother Ischemic Heart Disease Father from Cerebral Hemmorrhage age 50 other (mva) Brother Cancer Sister Bone Marrow CA (more content not included)...[facility] 06-30-2024 History of Present illness Narrative* [...] vertebra (HCC) 07/12/2023 Coronary artery disease involving p[place] coronary artery without angina pectoris Seeing Dr. 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 (Patienttaking differently: Use 1 [place] in each nostril as needed.) ferrous sulfate [...] which included preparing to see the patient, [id number] patient care, completing clinical documentation, performing a medically appropriate examination, counseling and educating the patient/family/caregiver and ordering medications, tests, or procedures. SENSITIVE EXAMINATION CONSENT: The sensitive examination was discussed with the Patient or Patient's Authorized Sales Person. Asapplicable, any other physician, advance practice provider, medical student, or other health professional student that will be observing or involved in the sensitive examination for educational or training purposes was discussed with the Patient or Authorized Sales Person. The Patient or Authorized Sales Person has agreed to proceed with the sensitive examination. Yaw Singh MD documented in this encounterVeterans Health Administration03-24-2025 Consult note Author Antwan Pettit [facility] Note Date/Time June 30, 2024 9:3 5am [facility] Medical Records Department [address] [place] [address] Anesthesia Postop Eval I 06/30/24 0933 MR#: [id number] Acct: [id number] Name: JACOB LANDA Rep #:[id number] : 1955 69 From: Antwan Pettit CRNA PCP: Dr. Yaw Singh MD Status:REG SDC Y Race: C Location: [place] [address] Anesthesia: Postop Eval I Current Vital Signs [...] CRNA Cosigner Signature: Date CC: ~ Signed [facility] Work Phone: 1(381) 270-206403-24-2025 Discharge summary Author [facility] Note Date/Time June 30, 2024 9:1 6am [facility] Medical Records Department [address] [place] [address] Instructions for Home/Discharge Instructions 06/30/2413 MR#: [id number] Acct: [id number] Name: JACOB LANDA Rep #:[id number] : [...] Care Provider: Yaw Singh Instructions Print Language: Jordanian Discharge Orders/Prescriptions Prescriptions: New oxycodone 5 mg [...] CC: Dr. Yaw Singh MD ~ Signed [facility] Work Phone: 1(933) 607-497203-24-2025 Consult note [facility] Medical Records Department [address] [place] [address] Anesthesia Postop Eval II 06/30/24 1015 MR#: [id number] Acct: [id number] Name: JACOB LANDA Rep #:[id number] : 1955 69 From: Tawny Covington PCP: Dr. Yaw Singh MD Status:REG SDC Y Race: C [facility]- Anesthesia Postop Eval I Sum Postop Eval Completion status Anesthesia document: Postop Eval 1 completed: Yes Anesthesia Postop Eval I Summary Anesthesia Postop Eval I Summary: Anesthesia Postop Eval I: Assessment Summary Airway patent Yes 06/30/24 09:34 STAKING [email or web address] Spontaneous unlabored Yes 06/30/24 09:34 STAKING [email or web address] respirations Mental status Awake,Calm 06/30/24 09:34 STAKING [email or web address] nausea No 06/30/24 09:34 STAKING [email or web address] Vomiting No 06/30/24 09:34 STAKING [email or web address] Anesthesia Postop Eval I: Fluid Summary Crystalloid volume administer 250 06/30/24 09:34 STAKING [email or web address] (ml) Colloids volume administered ( ml) Blood Product volume administered (ml) Total IV fluid infused 250 06/30/24 09:34 STAKING [email or web address] Anesthesia Postop Eval I: Summary Notes Anesthesia Complication Yes 06/30/24 09:34 STAKING [email or web address] Anesthesia Complication right nares with 06/30/24 09:34 STAKING [email or web address] Comment: epistaxis from npa Post-operative progress note Anesthesia: Postop Eval II Evaluation Mental status: Awake Pain Level: 2 nausea: No Vomiting: No 06/30/24 1016 a> Date _ Tawny Santos Signature: Date CC: ~ Signed [facility]03-24-2025 Consult note [facility] Medical Records Department [address] [place] [address] Anesthesia Postop Eval I 06/30/24 0933 MR#: [id number] Acct: [id number] Name: JACOB LANDA Rep #:[id number] : 1955 69 From: Antwan Pettit CRNA PCP: Dr. Yaw Singh MD Status:REG [facility] Race: C Location: [address] Anesthesia: Postop Eval I Current Vital [...] Eval 1 completed: Yes 06/30/24 0935 y STAKING ENGINEER> Date _ Antwan Pettit STAKING ENGINEER Cosigner Signature: Date CC: ~ Signed [facility]03-24-2025 Consult note Author Guillermo [facility] Note Date/Time June 30, 2024 7:3 4am [facility] Medical Records Department [address] [place] [address] Pre-Anesthesia Evaluation 06/30/24 0723 MR#: [id number] Acct: [id number] Name: JACOB LANDA Rep #:[id number] : 1955 69 From: Guillermo Eckert MD PCP: Dr. Yaw Singh MD Status:[facility] Y Race: C Location: [place] [address] ASA Classification* ASA Classification ASA Classification: 3 [...] Arteriovenous Fistula,Creation Anesthesia History Anesthesia History - hide dropper: Anesthesia History - hide dropper Hx Hospitalization Yes: KIDNEY PROBLEMS, 06/02/24 10:59 [...] take am of surgery PONV PONV - hide dropper: PONV - hide dropper Female No 06/02/24 10:59 HX of Motion [...] 06/30/24 07:02 Respiratory Assessment Respiratory Assessment - hide dropper: Respiratory Tract Infection Hx - hide dropper Hx Respiratory Tract Infection No 06/02/24 10:59 STOP Sleep Apnea STOP Sleep Apnea - hide dropper: STOP Sleep Apnea - hide dropper Hx Hypertension Yes: CONTROLLED ON MEDS 06/02/24 [...] Tobacco Use History Tobacco Use History - hide dropper: Tobacco Use History - hide dropper Tobacco Use Smoking Status Never smoker 06/02/24 10:59 Hx Tobacco Use No 06/02/24 10:59 Years Smoking Packs Smoked per Day Smoking Cessation Date was within the last 15 years Hx Smoking Cessation Date Hx Smoking Cessation Counseling Hematologic Medial History Hematologic Hx - hide dropper: 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 Hx of Blood Transfusion No 06/02/24 10:59 [...] confused, unrespo /Reproduction History /Reproductive History - hide dropper: /Reproductive Hx- hide dropper Hx Now No 06/02/24 10:59 Gestational Age [...] Esophageal carcinoma Atherosclerosis of coronary artery of 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 Essential (primary) hypertension Non-rheumatic aortic stenosis Syncope and collapse Hyperlipidemia Atherosclerotic heart disease of p[place]enta coronary artery with other forms of angina [...] MD Cosigner Signature: Date CC: ~ Signed [facility] Work Phone: 1(446) 193-452103-24-2025 History and physical note Author Nikita Jackson [facility] Note Date/Time June 30, 2024 7:1 7am [facility] Medical Records Department [address] [place] [address] History & Physical Exam 06/30/24 0714 MR#: [id number] Acct: [id number] Name: JACOB LANDA Rep #:[id number] : 1955 69 From: Nikita Jackson MD PCP: Dr. Yaw Singh MD Status:[facility] Location: [place] [address] HPI - General HPI Narrative JACOB LANDA, is a 69 M who presents with ESRD currently on dialysis after LEELA last year with no recovery of renal function. He had vein mapping that revealed adequate left upper arm cephalic, basilic veins. 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 Yaw Singh MD~ Signed [facility] Work Phone: 1(773) 293-733303-24-2025 Discharge summary [facility] Medical Records Department [address] [place] [address] Instructions for Home/Discharge Instructions 06/30/24 0913 MR#: [id number] Acct: [id number] Name: JACOB LANDA Rep #:[id number] : 1955 69 From: Nikita Jackson MD PCP: Dr. Yaw Singh MD Status:REG [facility] Discharge Instructions Diet Discharge Diet: No restrictions [...] Care Provider: Yaw Singh Instructions Print Language: Jordanian Discharge Orders/Prescriptions Prescriptions: New oxycodone 5 mg [...] CC: Dr. Yaw Singh MD ~ Signed [facility]03-24-2025 Evaluation note* Diagnosis Onset Date Resolution Status Admit Date ESRD (end stage renal diseas e) on dialysis chronic June 30, 2024 6:45am AV fistula acute July 22 2:11pm [facility] Work Phone: 1(663) 942-443703-24-2025 Evaluation note* Diagnosis Onset Date Resolution Status Admit Date ESRD (end stage renal diseas e) on dialysis chronic June 30, 2024 6:45am AV fistula acute July 22 2:11pm AV fistula acute September 02, 2024 1:47pm [facility] Work Phone: 1(684) 822-678503-24-2025 Evaluation note* Diagnosis Onset Date Resolution Status Admit Date ESRD (end stage renal diseas e) on dialysis chronic June 30, 2024 6:45am AV fistula acute July 22 2:11pm AV fistula acute September 02, 2024 1:47pm Tunneled central venous catheter present acute October 15, 2024 9:01am [facility] Work Phone: 1(803) 681-978203-24-2025 Consult note [facility] Medical Records Department [address] [place] [address] Pre-Anesthesia Evaluation 06/30/24722 MR#: [id number] Acct: [id number] Name: JACOB LANDA Rep #:[id number] : 1955 69 From: Guillermo Eckert MD PCP: Dr. Yaw Singh MD Status:REG SDC Y Race: C Location: [place] [address]- ASA Classification* ASA Classification ASA Classification: 3 [...] Arteriovenous Fistula,Creation Anesthesia History Anesthesia History - hide dropper: Anesthesia History - hide dropper Hx Hospitalization Yes: KIDNEY PROBLEMS, 06/02/24 10:59 [...] take am of surgery PONV PONV - hide dropper: PONV - hide dropper Female No 06/02/24 10:59 HX of Motion [...] 06/30/24 07:02 Respiratory Assessment Respiratory Assessment - hide dropper: Respiratory Tract Infection Hx - hide dropper Hx Respiratory Tract Infection No 06/02/24 10:59 STOP Sleep Apnea STOP Sleep Apnea - hide dropper: STOP Sleep Apnea - hide dropper Hx Hypertension Yes: CONTROLLED ON MEDS 06/02/24 [...] Tobacco Use History Tobacco Use History - hide dropper: Tobacco Use History - hide dropper Tobacco Use Smoking Status Never smoker 06/02/24 10:59 Hx Tobacco Use No 06/02/24 10:59 Years Smoking Packs Smoked per Day Smoking Cessation Date was within the last 15 years Hx Smoking Cessation Date Hx Smoking Cessation Counseling Hematologic Medial History Hematologic Hx - hide dropper: 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 Hx of Blood Transfusion No 06/02/24 10:59 [...] confused, unrespo /Reproduction History /Reproductive History - hide dropper: /Reproductive Hx- hide dropper Hx Now No 06/02/24 10:59 Gestational Age [...] Esophageal carcinoma Atherosclerosis of coronary artery of 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 Essential (primary) hypertension Non-rheumatic aortic stenosis Syncope and collapse Hyperlipidemia Atherosclerotic heart disease of [place] coronary artery with other forms of angina [...] MD Cosigner Signature: Date CC: ~ Signed [facility]03-24-2025 History and physical note [facility] Medical Records Department [address] [place] [address] History & Physical Exam 06/30/24713 MR#: [id number] Acct: [id number] Name: JACOB LANDA Rep #:[id number] : 1955 69 From: Nikita Jackson MD PCP: Dr. Yaw Singh MD Status:[facility] Location: [place] [address] HPI - General HPI Narrative JACOB LANDA, is a 69 M who presents with ESRD currently on dialysis after LEELA last year with no recovery of renal function. He had vein mapping that revealed adequate left upper arm cephalic, basilicveins. 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 Yaw Singh MD~ Signed [facility]03-24-2025 [facility] Medical Records Department [address] [place] [address] History Physical Exam 06/30/24713 MR#: [id number] Acct: [id number] Name: JACOB LANDA Rep #: [id number] : 1955 69 From: Nikita Jackson MD PCP: Dr. Yaw Singh MD Status:[facility] Location: [place] [address] HPI - General HPI Narrative JACOB LANDA, is a 69 M who presents with ESRD currently on dialysis after LEELA last year with no recovery of renal function. He had vein mapping that revealed adequate left upper arm cephalic, basilic veins. REPLACED BY [facility] Medical History Wears glasses Cancer Cancer Pressure [...] Esophageal carcinoma Atherosclerosis of coronary artery of 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 Essential (primary) hypertension Non-rheumatic aortic stenosis Syncope and collapse Hyperlipidemia Atherosclerotic heart disease of [place] coronary artery with other forms of angina [...] dysuria or hematuria M (more content not included)...[facility]03-14-2025 Telephone encounter Note* Telephone Encounter - Hill Obrien LISW - 06/20/2024 10:44 AM EDT Call placed to pt to complete the scheduled kidney transplant psychosocial evaluation. No answer. Left message requesting pt return my call. KATHERYN Dye LISW-S, [facility] Transplant Push Button Switch Assembler [facility] Work Phone: [phone]) 245-172303-14-2025 Miscellaneous Notes* Telephone Encounter - Hill Obrien LISW - 06/20/2024 10:44 AM EDT Call placed to pt to complete the scheduled kidney transplant psychosocial evaluation. No answer. Left message requesting pt return my call. KATHERYN Dye LISW-S, [facility] Transplant Push Button Switch Assembler documented in this encounterVeterans Health Administration03-05-2025 Instructions* Patient Instructions* Ezekiel Shah RN - [...] will be scheduled for you at a [facility] facility: CARDIAC: EKG-Today Cardiac Stress Test-Will schedule after discussion with your utilization specialist CANCER SCREENING: PSA with Evaluation-with labs today ADDITIONAL CONSULTS Cardiology-Will need clearance from your utilization specialist Oncology-Will need clearance from your oncologist Imaging Studies: Nothing further Miscellaneous Items: Labs-Today Outside test results should be faxed to [phone]. Please review the kidney transplant educational materials on line at [email or web address] Sign-in: Kidney To check on your status of your evaluation, please contact your coordinator, Wendy Christian RN [phone]. Ezekiel Shah RN Kidney/Pancreas Pre-Supervisor Varnish [facility] documented in this encounterVeterans Health Administration03-05-2025 NoteHNO ID: [id number] Author: LACHO PA PA-C Service: ? Author Type: Physician Promotional Representative Type: Progress Notes Filed: 06/13/2024 16:50 Note Text: [facility] Transplant Evaluation CC: Consultation for Kidney transplant evaluation. Referred by: Maria Victoria Scott [facility] [facility] [address] [address] I will communicate with the referring provider [...] 03/28/2024 through a TDC-plan for aVF on Sunday06/16/2024-[place] Patient presents ambulatory with cane. 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 [facility]03-05-2025 History of Present illness Narrative* Lacho Pa PA-C - 06/11/2024 1:19 PM EST [facility] Transplant Evaluation CC: Consultation for Kidney transplant evaluation. Referred by: Maria Victoria Scott [address] [address] I will communicate with the referring provider [...] 03/28/2024 through a TDC-plan for aVF on Sunday06/16/2024-[place] Patient presents ambulatory with cane. Does patient [...] kidney disease) stage 4, GFR 15-29 ml/min ([facility]) 01/03/2024 On dialysis and seeing Dr. Greenberg. Closed wedge compression fracture of T10 vertebra ([facility]) 07/12/2023 Coronary artery disease involving paskenta coronary artery without angina pectoris Seeing Dr. Noland DDD (degenerative disc disease), lumbar 11/04/2019 Elevated blood sugar 03/11/2024 Esophageal adenocarcinoma ([facility]) 08/09/2020 Essential hypertension, benign GERD (gastroesophageal reflux disease) 07/12/2009 History of kidney stones 07/20/2014 Iron deficiency anemia due to chronic blood loss 05/25/2020 Iron malabsorption 05/25/2020 Kidney stone Kyphosis (acquired) (postural) 07/30/[address] 03/11/2024 DPA: Lacho (step daughter) Malignant neoplasm of lower third of esophagus ([facility]) 04/15/2020 Medicare annual wellness visit, subsequent 01/13/2021 Medical B eligibilty date 03/09/19 Date of last exam 01/13/2021 Mixed hyperlipidemia MRSA (methicillin resistant Staphylococcus aureus) 12/01/2016 treated with course of Linezolid beginning 10/29/16 Nonrheumatic aortic valve disorder On tube feeding diet 08/14/2020 History: 65 year old male s/p [place] esophagectomy, Pyloromyotomy, Jejunostomy tube placement for esophageal adenocarcinoma -Diet: Isosource 1.5 to 50 cc hour with 100 cc water flushes 8 times per day and Bene protein 3 times per day Removed 11/17/2020 Personal history of colonic polyps 12/27/2009 Human Resources 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 (Patienttaking differently: Use 1 [place] in each nostril as needed.) ferrous sulfate [...] Alive breast cancer Fa at age 49 [place] Willem Aguilerary Sis Khushbu Sis Mariella Sis [...] are not limited to: bleeding, infection, , [place], DVT, PE, CVA, risk of damage to [...] case, find addendum below: documented in this encounterVeterans Health Administration03-05-2025 NoteHNO ID: [id number] Author: ROBER IGLESIAS RN Service: ? Author [...] about Kidney Allocation Policy -Directions to access [facility]'s data through the [facility] website. -Informed Consent for Transplant Program Participation patient education packet -National Kidney Registry pamphlet -Covid-19 Vaccination for Transplant Candidates Method of Instruction: Group class instruction Written instruction/Handouts Verbal instruction Patient/Family Response: Patient asked appropriate questions, which were answered satisfactorily. Follow-Up Plan: Complete - No need for follow-up Referral/Recommendation: None Rober Iglesias RN [facility]inator[facility] History of Present illness Narrative* Rober [...] about Kidney Allocation Policy -Directions to access [facility]'s data through the [facility] website. -Informed Consent for Transplant Program Participation patient education packet -National Kidney Registry pamphlet -Covid-19 Vaccination for Transplant Candidates Method of Instruction: Group class instruction Written instruction/Handouts Verbal instruction Patient/Family Response: Patient asked appropriate questions, which were answered satisfactorily. Follow-Up Plan: Complete - No need for follow-up Referral/Recommendation: None Rober Iglesias RN Pre-Supervisor Varnish documented in this encounterVeterans Health Administration03-05-2025 Instructions* Patient Instructions* Vicente Addison RD - [...] getting sauces on the side, asking your server service assistant to have less salt added to your [...] of exercise per week. documented in this encounterVeterans Health Administration03-05-2025 History of Present illness Narrative* Vicente Addison, [...] getting sauces on the side, asking your server service assistant to have less salt added to your meal, and limit your portion. Eggs, yogurt, nuts/nut butters, seeds, meat/fish/poultry, cheese, cottage cheese, and yogurt all contain protein. If on dialysis, your body needs more protein. Include protein each time you eat. Consider using a protein shake if this is suggested by your dialysis dietitian (such as Bryn or [facility]). If not on dialysis, your body [...] TIME: 10:45 AM PAGER: documented in this encounterVeterans Health Administration03-05-2025 NoteHNO ID: [id number] Author: VICENTE ADDISON RD Service: ? Author [...] getting sauces on the side, asking your server service assistant to have less salt added to your meal, and limit your portion. Eggs, yogurt, nuts/nut butters, seeds, meat/fish/poultry, cheese, cottage cheese, and yogurt all contain protein. If on dialysis, your body needs more protein. Include protein each time you eat. Consider using a protein shake if this is suggested by your dialysis dietitian (such as Bryn or [facility]). If not on dialysis, your body [...] DATE: June 11, 2024 TIME: 10:45 AM PAGER:[facility]03-05-2025 NoteEducation (DTBAMN) JACOB LANDA ([id number]) 1955 M Date Time Provider Department 06/11/24 [...] (FLONASE) 50 mcg/actuation nasal spray Use 1 [place] in each nostril once daily. - ferrous [...] for Encounter Date Provider Department Center 06/11/2024 [id number], MARLEY DTBAMN Main - A Bld Encounter Status:Closed by VICENTE ADDISON on 06/11/24[facility] 06-11-2024 NoteHNO ID: [id number] Author: GRABIEL RUFF MD Service: ? Author Type: Physician Type: Progress Notes Filed: 06/13/2024 11:56 Note Text: [facility] Transplant Evaluation CC: Consultation for Kidney transplant evaluation. Referred by: Maria Victoria Scott [facility] [address] [address] I will communicate with the referring provider [...] and radiation with carboplatin and paclitaxel 05/2020-06/2020 [place] esophagectomy 08/09/2020 Adjuvant nivolumab DDD BPH [...] vertebra (HCC) 07/12/2023 Coronary artery disease involving p[place]enta coronary artery without angina pectoris Seeing Dr. [...] 08/14/2020 History: 65 year old male s/p [place] esophagectomy, Pyloromyotomy, Jejunostomy tube placement for esophageal adenocarcinoma -Diet: Isosource 1.5 to 50 cc hour with 100 cc water flushes 8 times per day and Bene protein 3 times per day Removed 11/17/2020 Personal history of colonic polyps 12/27/2009 Hector' (more content not included)...[facility]03-05-2025 History of Present illness Narrative* Grabiel Ruff MD - 06/11/2024 9:30 AM EST [facility] Transplant Evaluation CC: Consultation for Kidney transplant evaluation. Referred by: Maria Victoria Scott [address] [address] I will communicate with the referring provider [...] and radiation with carboplatin and paclitaxel 05/2020-06/2020 [place] esophagectomy 08/09/2020 Adjuvant nivolumab DDD BPH [...] kidney disease) stage 4, GFR 15-29 ml/min ([facility]) 01/03/2024 On dialysis and seeing Dr. Greenberg. 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 Pressure ulcer of unspecified buttock, stage 2 ([facility]) 01/03/2024 Bilaterally. Primary insomnia 03/30/2023 S/P [...] COLONOSCOPY W/BIOPSY SINGLE/MULTIPLE 02/22/2007 Diminutive polyp distal [id number] ECHO 01/08/2021 EGD 04/15/2020 HEART CATHETERIZATION 12/2018 [...] (FLONASE) 50 mcg/actuation nasal spray Use 1 [place] in each nostril once daily. (Patienttaking differently: Use 1 [place] in each nostril as needed.) ferrous sulfate [...] Alive breast cancer Fa at age 49 [place] Willem Aguilerary Melany Khushbu Melany Mariella Sis [...] MD This note was partially generated using [employer] voice recognition system, and there may be some incorrect words, spellings, and punctuation that were not noted in checking the note before saving. documented in this encounterVeterans Health Administration03-03-2025 NoteHNO ID: [id number] Author: ALBERTA CANDELARIA MA Service: ? Author Type: Network Security Architect Type: Progress Notes Filed: 06/09/2024 15:53 Note Text: Scan on 06/06/2024 8:40 AM by Provider, External, PA-C: Hematology Scan on 06/06/2024 9:42 AM by Provider, External, PA-C: Chemistry Alberta Derrick, [facility]03-03-2025 History of Present illness Narrative* Alberta Candelaria MA - 06/09/2024 3:52 PM EST Scan on 06/06/2024 8:40 AM by Provider, ExternalOPAL: Hematology Scan on 06/06/2024 9:42 AM by Provider, External, OPAL: Chemistry Alberta Candelaria MA documented in this encounterVeterans Health Administration02-28-2025 NoteHNO ID: [id number] Author: NISHA SCHULTZ, MICHELE Service: ? Author Type: Registered Nurse Type: Progress Notes Filed: 06/06/2024 13:56 Note Text: Kidney PreTransplant medical authorization specialist Referral source:Dialysis fax Wheel Alignment Mechanic: Maria Victoria Scott2-18-25 CT abd/pel:Date done 04-17-24 ECHO/EF:Date 09-21-23/ 56% Kidney Disease Cause: Hx HTN, no biopsy Different from intake: Ezekiel discussed with Dr Lepe. OK to come in as long as can swallow pills, which patient said he couldOhio [facility]02-28-2025 History of Present illness Narrative* Nisha Schultz, MICHELE - 06/06/2024 1:42 PM EST Kidney PreTransplant medical authorization specialist Referral source:Dialysis fax Wheel Alignment Mechanic: Maria Victoria Scott2-18-25 CT abd/pel:Date done 04-17-24 ECHO/EF:Date 09-21-23/ 56% Kidney Disease Cause: Hx HTN, no biopsy Different from intake: Ezekiel discussed with Dr Lepe. OK to come in as long as can swallow pills, which patient said he could documented in this encounterVeterans Health Administration02-28-2025 NoteHNO ID: [id number] Author: KRYSTINA QUINONES LPN Service: ? Author Type: LICENSED NURSE Type: Progress Notes Filed: 06/06/2024 09:02 Note Text: Scan on 06/06/2024 8:40 AM by ProviderDanette PA-C: [facility]02-[facility] History of Present illness Narrative* Krystina Quinones LPN - 06/06/2024 9:02 AM EST Scan on 06/06/2024 8:40 AM by ProviderDanette PA-C: Hematology documented in this encounterVeterans Health Administration02-18-2025 Telephone encounter Note * Telephone Encounter - Susan Meredith - 05/27/2024 10:18 AM EST KIDNEY TRANSPLANT REFERRAL (enter above which organ the patient needs; Kidney, Pancreas or Kidney/Pancreas) Is this referral for a Safety Net or HIV Patient? No (Safety Net = Pt needing an additional transplant within 12 months for any organ) Jacob Landa [phone] Spoke with: Patient Referral Source: (Tx Access; Online; Fax; Internal or Self-Referral) Fax MEDICAL DIRECTOR OCCUPATIONAL HEALTH / PHYSICIAN: MARIA VICTORIA SCOTT (see's at [...] referral for transplant to your (OOS) Medicaid telehealth case manager? NA If the patient has Medicare A/B [...] Dialysis: Yes. If yes, date and location: [facility] Days: Dialysis start date: 03/28/2024 Dialysis Records scanned in [facility] on 05/26/24 Do you have Diabetes? [...] and 1/3 of stomach removed all at [facility]. Had Radiation and Chemo last treatment approx June or July 2020. Hx of Hypertension? Yes Hx of [place]/Heart Attack? No Hx of TIA/CVA or Stroke? No Are you on a blood thinner? Yes If YES which medication are you on? Baby aspirin Have you had a CABG or STENTS? Yes. If yes, date and location: CABG 5x done in 2002 at [facility] Hrt Stents 6x done about 2014 last done 2019 done at [facility] and aorta stent in [facility] Have you ever had a Stress Test? Yes. If yes, date and location: 01/08/2021 (see scanned doc in epicon 01/27/21) done at [facility] Have you ever had an Echo? [...] MyCHART Is the patient signed up for [employer]? No-patient doesn't have an email and not [...] Everywhere: Yes. Have records been requested from [employer]? No see epic and C.E. Route the referral to the Kidney Txp in store representative, Nisha Schultz. Susan Meredith [facility]02-18-2025 Miscellaneous Notes* Telephone Encounter - Susan Meredith - 05/27/2024 10:18 AM EST KIDNEY TRANSPLANT REFERRAL (enter above which organ the patient needs; Kidney, Pancreas or Kidney/Pancreas) Is this referral for a Safety Net or HIV Patient? No (Safety Net = Pt needing an additional transplant within 12 months for any organ) Jacob Landa [phone] Spoke with: Patient Referral Source: (Tx Access; Online; Fax; Internal or Self-Referral) Fax MEDICAL DIRECTOR OCCUPATIONAL HEALTH / PHYSICIAN: MARIA VICTORIA SCOTT (see's at [...] referral for transplant to your (O) Medicaid telehealth case manager? NA If the patient has Medicare A/B [...] Dialysis: Yes. If yes, date and location: [facility] Days: Dialysis start date: 03/28/2024 Dialysis Records scanned in [facility] on 05/26/24 Do you have Diabetes? [...] and 1/3 of stomach removed all at [facility]. Had Radiation and Chemo last treatment approx June or July 2020. Hx of Hypertension? Yes Hx of [place]/Heart Attack? No Hx of TIA/CVA or Stroke? No Are you on a blood thinner? Yes If YES which medication are you on? Baby aspirin Have you had a CABG or STENTS? Yes. If yes, date and location: CABG 5x done in 2002 at [facility] Hrt Stents 6x done about 2014 last done 2018 done at [facility] and aorta stent in [facility] Have you ever had a Stress Test? Yes. If yes, date and location: [facility]08[facility]20[facility] Have you ever had an Echo? Yes. If yes, date and location: 09/21/2023 (see [facility]) Have you ever had a Cardiac Cath? Yes. If yes, date and location: 12/31/2018 CT Abdomen/Pelvis: Yes. If yes, date and location: 04/17/2024 (see [facility]) Colonoscopy: Yes. If yes, date and location: 06/01/2020 (see [facility]) Hx of Lupus? No Sickle Cell Trait or Disease: N/A Have you had any prior surgeries? Yes - Partial hip replaced (L) in Feb 2024, Tonsils removed as a child, port in chest uses for dialysis at this time. Do you have a potential living donor? No MyCHART Is the patient signed up for Shaka? No-patient doesn't have an email and not computer savvy. If YES - send patient the Kidney/Pancreas New Referral Message. If NO - obtain their email address AND send [employer] sign up information: email address: No e-mail address on record - No Email Is the patient okay with having a Virtual Appt: No - no email and not computer savvy. Have records been retrieved from Care Everywhere: Yes. Have records been requested from [facility]? No see epic and C.E. Route the referral to the Kidney Txp in store representative, Nisha Schultz. Susan Meredith documented in this encounterVeterans Health Administration01-30-2025 Telephone encounter Note * Telephone Encounter - Erin Du LPN - 05/08/2024 8:36 AM EST Patient notified and voices understanding. Erin Du LPN [facility]01-30-2025 Miscellaneous Notes* Telephone Encounter - Erin Du LPN - 05/08/2024 8:36 AM EST Patient notified and voices understanding. Erin Du LPN * Telephone Encounter - Richard Jenkins DO - 05/07/2024 5:24 PM EST Can let him know the MRI scan shows no evidence of cancer in his back. Follow-up as scheduled. Richard Jenkins DO documented in this encounterVeterans Health Administration01-29-2025 Telephone encounter Note * Telephone Encounter - Richard Jenkins DO - 05/07/2024 5:24 PM EST Can let him know the MRI scan shows no evidence of cancer in his back. Follow-up as scheduled. Richard Jenkins DO [facility]01-29-2025 History of Present illness Narrative* Marilee Bosch [...] PATIENT PRESENTS WITH AN IMPLANTABLE OR ATTACHED ADVANCE SEAL DELIVERY SYSTEM MAINTAINER: No ALLERGIES: Reviewed and unchanged CONTRAST ALLERGY: NO. EXAM: MRI - CONTRAST TYPE: GROUP II PERIPHERAL IV DATA: Ambulatory: A peripheral IV was started in the Right antecubital site with a Angio cath: 24 gauge. RADIOLOGY DEPARTMENT: MR; Exam(s) Completed: Spine: Thoracic spine SIGNATURE: RT Gigi(R) PATIENT NAME: Jacob Landa DATE: May 07, 2024 TIME: 2:47 PM documented in this encounterVeterans Health Administration01-29-2025 NoteHNO ID: [id number] Author: MARILEE BOSCH RT(R) Service: ? Author [...] PATIENT PRESENTS WITH AN IMPLANTABLE OR ATTACHED ADVANCE SEAL DELIVERY SYSTEM MAINTAINER: No ALLERGIES: Reviewed and unchanged CONTRAST ALLERGY: [...] TIME: 2:47 [facility]01-29-2025 NoteHNO ID: [id number] Author: EDWIN MONTES APRN.WILDLIFE CONSERVATION OFFICER Service: ? Author Type: Nurse Practitioner Type: [...] vertebra (HCC) 07/12/2023 Coronary artery disease involving [place] coronary artery without angina pectoris Seeing Dr. [...] 08/14/2020 History: 65 year old male s/p [place] esophagectomy, Pyloromyotomy, Jejunostomy tube placement for esophageal adenocarcinoma -Diet: Isosource 1.5 to 50 cc hour with 100 cc water flushes 8 times per day and Bene protein 3 times per day Removed 11/17/2020 Personal history of colonic polyps 12/27/2009 Human Resources Trainer's nodules 03/30/2023 Will try pamelor Pleural effusion [...] COLONOSCOPY W/BIOPSY SINGLE/MULTIPLE 02/22/2007 Diminutive polyp distal [id number] ECHO 01/08/2021 EGD 04/15/2020 HEART CATHETERIZATION 12/2018 [...] (FLONASE) 50 mcg/actuation nasal spray Use 1 [place] in each nostril once daily. ferrous sulfate [...] for nausea/vomiting. nitroglycerin subling (more content not included)...[facility] 05-07-2024 History of Present illness Narrative* Edwin Montes APRN.WILDLIFE CONSERVATION OFFICER - 05/07/2024 8:53 AM EST Images from [...] kidney disease) stage 4, GFR 15-29 ml/min ([facility]) 01/03/2024 On dialysis and seeing Dr. Greenberg. 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 Noland DDD (degenerative disc disease), lumbar 11/04/2019 Elevated blood sugar 03/11/2024 Esophageal adenocarcinoma ([facility]) 08/09/2020 Essential hypertension, benign GERD (gastroesophageal reflux disease) 07/12/2009 History of kidney stones 07/20/2014 Iron deficiency anemia due to chronic blood loss 05/25/2020 Iron malabsorption 05/25/2020 Kidney stone Kyphosis (acquired) (postural) 07/30/[address] 03/11/2024 DPA: Lacho (step daughter) Malignant neoplasm of lower third of esophagus ([facility]) 04/15/2020 Medicare annual wellness visit, subsequent 01/13/2021 Medical B eligibilty date 03/09/19 Date of last exam 01/13/2021 Mixed hyperlipidemia MRSA (methicillin resistant Staphylococcus aureus) 12/01/2016 treated with course of Linezolid beginning 10/29/16 Nonrheumatic aortic valve disorder On tube feeding diet 08/14/2020 History: 65 year old male s/p [place] esophagectomy, Pyloromyotomy, Jejunostomy tube placement for esophageal adenocarcinoma -Diet: Isosource 1.5 to 50 cc hour with 100 cc water flushes 8 times per day and Bene protein 3 times per day Removed 11/17/2020 Personal history of colonic polyps 12/27/2009 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 Pressure ulcer of unspecified buttock, stage 2 ([facility]) 01/03/2024 Bilaterally. Primary insomnia 03/30/2023 S/P [...] COLONOSCOPY W/BIOPSY SINGLE/MULTIPLE 02/22/2007 Diminutive polyp distal [id number] ECHO 01/08/2021 EGD 04/15/2020 HEART CATHETERIZATION 12/2018 [...] (FLONASE) 50 mcg/actuation nasal spray Use 1 [place] in each nostril once daily. ferrous sulfate [...] update Edwin Montes APRN.CNP documented in this encounterVeterans Health Administration01-24-2025 NoteHNO ID: [id number] Author: RICHARD JENKINS, DO Service: ? Author [...] abdomen: Dedicated CT abdomen pelvis dictated separately. Director College (topogram) images: No additional findings. CT A/P [...] chest CT performed will be reported separately. Director College (topogram) images: No additional findings. EGD/EUS 04/26/2020: A partially obstructing, malignant esophageal tumor was found to lower 30 esophagus. Gastric tumor in the cardia extension from distal (more content not included)...[facility]01-24-2025 History of Present illness Narrative* Richard [...] abdomen: Dedicated CT abdomen pelvis dictated separately. Director College (topogram) images: No additional findings. CT A/P [...] chest CT performed will be reported separately. Director [employer] (topogram) images: No additional findings. EGD/EUS 04/26/2020: [...] seat fell asleep and kicked back of lifter/driver's chair causing him instant and severepain in lower thoracic area. Pain was most intense in March. MRI and PET reviewed by several radiologists. Consensus was no evidence of cancer and biopsy not recommended. He was seen at the spine center in [place]. Office visit 08/2023: Back pain significantly improved after passing kidney stones. Has days without back pain. 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 Here in the past couple weeks, I felt better than I felt since last summer. OV 01/15/2024: Has been hospitalized several times at [facility]. Developed end-stage renal disease and started [...] No jaundice or rash. No petechiae. NEUROLOGIC: hair cutter II-XII are grossly intact. No focal motor [...] which included preparing to see the patient, lujg-us-dyjo patient care, completing clinical documentation, obtaining and/or reviewing separately obtained history, and performing a medically appropriate examination. Richard Jenkins DO documented in this encounterVeterans Health Administration01-22-2025 NoteHNO ID: [id number] Author: KRYSTINA QUINONES LPN Service: ? Author Type: LICENSED NURSE Type: Progress Notes Filed: 04/30/2024 07:42 Note Text: Scan on 04/29/2024 2:53 PM by ProviderDanette PA-C: [facility] - [facility] History of Present illness Narrative* Krystina Quinones LPN - 04/30/2024 7:41 AM EST Scan on 04/29/2024 2:53 PM by ProviderDanette PA-C: Consultation - Cardiology documented in this encounterVeterans Health Administration01-20-2025 Evaluation note* Diagnosis Onset Date Resolution Status Admit Date ESRD (end stage renal disease) on dialysis chronic April 1:53pm ESRD (end stage renal disease) on dialysis chronic April 1:49pm Hyperlipidemia chronic April 292024 1:49pm History of aortic valve replacement March 03, 2019 resolved April 1:49pm Adenocarcinoma of esophagus inactive April 29, 2024 1:49pm Atherosclerosis of coronary artery of 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 inactive April 29, 2024 1:49pm [facility] Work Phone: 1(471) 155-953101-20-2025 Evaluation note* Diagnosis Onset Date Resolution Status Admit Date ESRD (end stage renal disease) on dialysis chronic April 1:53pm ESRD (end stage renal disease) on dialysis chronic April 1:49pm Hyperlipidemia chronic April 292024 1:49pm History of aortic valve replacement March 03, 2019 resolved April 1:49pm Adenocarcinoma of esophagus inactive April 29, 2024 1:49pm Atherosclerosis of coronary artery of 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 inactive April 29, 2024 1:49pm ESRD (end stage renal disease) on dialysis chronic June 30, 2024 6:45am [facility] Work Phone: 1(795) 974-128701-17-2025 NoteHNO ID: [id number] Author: KRYSTINA QUINONES LPN Service: ? Author Type: LICENSED NURSE Type: Progress Notes Filed: 04/25/2024 06:53 Note Text: Scan on 04/24/2024 1:51 PM by Provider, KRISTINA SamaniegoC: [facility]oundOhio [facility]01-17-2025 History of Present illness Narrative* Krystina Quinones LPN - 04/25/2024 6:53 AM EST Scan on 04/24/2024 1:51 PM by ProviderDanette PA-C: Ultrasound documented in this encounterVeterans Health Administration01-13-2025 Telephone encounter Note * Telephone Encounter - Hayde Summers LPN - 04/21/2024 11:25 AM EST Spoke with pt and information listed below given. Pt verbalizes understanding. Hayde Summers LPN [facility]01-13-2025 Miscellaneous Notes* Telephone Encounter - Hayde Summers [...] other labs were ok. documented in this encounterVeterans Health Administration01-13-2025 Telephone encounter Note * Telephone Encounter - Gayatri Pradhan MA - 04/21/2024 8:51 AM EST Message left for pt to call back for results. Gayatri Pradhan MA [facility]01-11-2025 Telephone encounter Note* Telephone Encounter - Yaw Singh MD - 04/19/2024 2:32 PM EST Let patient know the only thing out of sorts on his recent labs was his calcium and potassium were slightly and this will most likely be address with his dialysis. All his other labs were ok. [facility]01-09-2025 Telephone encounter Note* Telephone Encounter - Erin Du LPN - 04/17/2024 2:54 PM EST Follow up here on 05/06/24. Rx pended. Erin Du LPN [facility]01-09-2025 Miscellaneous Notes* Telephone Encounter - Erin Du LPN - 04/17/2024 2:54 PM EST Follow up here on 1/28/25. Rx pended. Erin Du LPN * Telephone Encounter - Jennyfer Suresh - 04/17/2024 2:23 PM EST Patient in office and states he needs a RX.REFILL on his 2.5 MG Olanzapine Sent to [facility] documented in this encounterVeterans Health Administration01-09-2025 Telephone encounter Note * Telephone Encounter - Jennyfer Suresh - 04/17/2024 2:23 PM EST Patient in office and states he needs a RX.REFILL on his 2.5 MG Olanzapine Sent to [facility]01-09-2025 History of Present illness Narrative* Beatrice Zuleta [...] PATIENT PRESENTS WITH AN IMPLANTABLE OR ATTACHED ADVANCE SEAL DELIVERY SYSTEM MAINTAINER: No RADIOLOGY DEPARTMENT: CT; Exam(s) Completed: Chest Abdomen Pelvis PERIPHERAL IV DATA: Not applicable SIGNED BY: RT Geno(R) April 17, 2024 3:51 PM documented in this encounterVeterans Health Administration01-09-2025 NoteHNO ID: [id number] Author: BEATRICE ZULETA RT(R) Service: ? Author Type: Boring Machine Operator Helper Type: Progress Notes Filed: 04/17/2024 15:52 Note [...] PATIENT PRESENTS WITH AN IMPLANTABLE OR ATTACHED ADVANCE SEAL DELIVERY SYSTEM MAINTAINER: No RADIOLOGY DEPARTMENT: CT; Exam(s) Completed: Chest Abdomen Pelvis PERIPHERAL IV DATA: Not applicable SIGNED BY: RT Geno(R) April 17, 2024 3:51 [facility]12-03-2024 Instructions* Patient Instructions* Yaw Singh MD - [...] review all the medicines you take, even bxix-kyr-kylbhar medicines. As you get older, the way [...] have certain medical conditions. documented in this encounterVeterans Health Administration12-03-2024 History of Present illness Narrative* Yaw Singh [...] (Radiation Oncology) Luly Gaffney, RN as Specialty Peoples[employer] Fscm Developer (Oncology) Richard Jenkins DO as Referring (Hematology/Oncology) Haroldo Noland MD (Cardiology) Sena Seymour, RN (Inactive) as Push Button Switch Assembler Friend, Bud Paul DO (Gastroenterology) Helen Gibson, Maegan Ferguson, RN as Primary Care Child Development Specialist Medical/Family history review Reviewed and updated problem list, medical/surgical/family/social history, medications, and allergies. Opioid use review Opioid Medications (last 90 days) 01/03/2024 Opioid Medications hydrocodone/acetaminophen 1 tablet q 6 H PRN Given at [facility] 09/10/23 ORAL (2.5- 325 mg [...] vertebra (HCC) 07/12/2023 Coronary artery disease involving [place] coronary artery without angina pectoris Seeing Dr. [...] 08/14/2020 History: 65 year old male s/p [place] esophagectomy, Pyloromyotomy, Jejunostomy tube placement for esophageal adenocarcinoma -Diet: Isosource 1.5 to 50 cc hour with 100 cc water flushes 8 times per day and Bene protein 3 times per day Removed 11/17/2020 Personal history of colonic polyps 12/27/2009 Human Resources Trainer's nodules 03/30/2023 Will try pamelor Pleural effusion [...] COLONOSCOPY W/BIOPSY SINGLE/MULTIPLE 02/22/2007 Diminutive polyp distal [id number] ECHO 01/08/2021 EGD 04/15/2020 HEART CATHETERIZATION 12/2018 [...] <AGE 11 Tonsillectomy TOT/SUB ESOPHAGECTOMY W/THORACOT 08/09/2020 [place] esophagectomy, jejunostomy tube placement Family History [...] (FLONASE) 50 mcg/actuation nasal spray Use 1 [place] in each nostril once daily. OLANZapine (ZYPREXA) [...] Lymph 1.00 - 4.00 k/uL 0.71 (L) [place]% % 8.3 Abs [place] <0.87 k/uL 0.53 [place]% % 0.9 Abs [...] restart Zetia. 4. 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- ICD9: 414.01, ICD10: [...] which included preparing to see the patient, rgab-id-cdxw patient care, completing clinical documentation, performing a medically appropriate examination, counseling and educating the patient/family/caregiver and ordering medications, tests, or procedures. Yaw Singh MD documented in this encounterVeterans Health Administration12-03-2024 NoteHNO ID: [id number] Author: YAW SINGH MD Service: ? Author [...] (Radiation Oncology) Luly Gaffney RN as Specialty [employer] Fscm Developer (Oncology) Richard Jenkins DO as Referring (Hematology/Oncology) Haroldo Noland MD (Cardiology) Sena Seymour RN (Inactive) as Push Button Switch Assembler Kiran, Bud Paul DO (Gastroenterology) Helen Gibson Judith Marie, MICHELE as Primary Care Child Development Specialist Medical/Family history review Reviewed and updated problem list, medical/surgical/family/social history, medications, and allergies. Opioid use review Opioid Medications (last 90 days) 01/03/2024 Opioid Medications hydrocodone/acetaminophen 1 tablet q 6 H PRN Given at [facility] 09/10/23 ORAL (2.5-325 mg tab) [...] vertebra (HCC) 07/12/2023 Coronary artery disease involving [place] coronary artery without angina pectoris Seeing Dr. [...] 08/14/2020 History: 65 year old male s/p [place] esophagectomy, Pyloromyotomy, Jejunostomy tube placement for esophageal adenocarcinoma -Diet: Isosource 1.5 to 50 cc hour with 100 cc water flushes 8 times per day and Bene protein 3 times per day Removed 11/07 (more content not included)...[facility] 03-03-2024 NoteHNO ID: [id number] Author: YAW SINGH MD Service: ? Author Type: Physician Type: Progress Notes Filed: 03/03/2024 21:11 Note Text: Patient's home health 485 form / care plan for certification period 02/27/2024 to 04/26/2024 reviewed and signed. Relevant medical records were reviewed. Changes were [facility] History of Present illness Narrative* Yaw Singh MD - 03/03/2024 9:08 PM EST Patient's home health 485 form / care plan for certification period 02/27/2024 to 04/26/2024 reviewed and signed. Relevant medical records were reviewed. Changes were communicated to home health agency documented in this encounterVeterans Health Administration11-10-2024 [facility] Medical Records Department [address] [place] [address] Discharge Summary 02/17/24 0904 MR#: [id number] Acct: [id number] Name: SYEDAJACOB OWENS Rep #: [id number] : [id number] 68 From: Gayatri Roy DO PCP: Dr. Yaw Singh MD Status:ADM IN Location: [place] [id number] Providers Date of Admission: 02/15/24 Date of [...] who presented to the emergency department at [facility] on 02/14/2024 with a chief complaint [...] had minimal pain and did well with director physical (more content not included)...[facility]11-08-2024 History of Present illness Narrative* Krystina Quinones LPN - 02/15/2024 8:08 AM EST Scan on 02/15/2024 12:13 AM by ProviderDanette PA-C: Consultation - Emergency Medicine Scan on 02/15/2024 6:44 AM by ProviderDanette PA-C documented in this encounterVeterans Health Administration10-28-2024 Telephone encounter Note * Telephone Encounter - [...] the patient to follow up with his utilization specialist for volume management as well as grip. Patient gets dialysis MWF. All questions answered. [facility]10-28-2024 Miscellaneous Notes* Telephone Encounter - Zachary Berkowitz [...] the patient to follow up with his utilization specialist for volume management as well as grip. Patient gets dialysis MWF. All questions answered. documented in this encounterVeterans Health Administration10-24-2024 Instructions* Patient Instructions* Zachary Berkowitz APRN.CNP - 01/31/2024 9:56 AM EDT -Get chest xray today -Start Fluticasone (Flonase) 1-2 spray(s) (50 mcg/spray) per nostril once daily. -Start clotrimazole 10 mg neena 5x a day for 14 days for oral thrush documented in this encounterVeterans Health Administration10-24-2024 History of Present illness Narrative* Zachary Berkowitz [...] line. After discharge, he went to the retirement. 12/27 was discharged home from retirement. Feeling tired at times. Otherwise feeling good. Last saw utilization specialist in the spring. States seeing them for [...] vertebra (HCC) 07/12/2023 Coronary artery disease involving [place] coronary artery without angina pectoris Seeing Dr. 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 No congestion or rhinorrhea. Mouth/Throat: Lips: [place]. No lesions. Mouth: Mucous membranes are moist. [...] for labs including cytology -following with a utilization specialist for HF, encouraged him to follow up with his utilization specialist. Does not appear fluid overloaded on exam, [...] which included preparing to see the patient, ixgq-ct-bzyl patient care, completing clinical documentation, obtaining and/or reviewing separately obtained history, performing a medically appropriate examination, counseling and educating the pat ient/family/caregiver, and ordering medications, tests, or procedures . Zachary Berkowitz APRN.CNP Pulmonary Medicine documented in this encounterVeterans Health Administration10-22-2024 Telephone encounter Note * Telephone Encounter - Isa Godoy LPN - 01/29/2024 9:10 AM EDT Spoke with pt. He did receive message concerning results, will F/U with Dr. Beck as directed Isa Godoy LPN [facility]10-22-2024 Miscellaneous Notes* Telephone Encounter - Isa Godoy [...] nausea. Richard Jenkins DO documented in this encounterVeterans Health Administration10-21-2024 Telephone encounter Note * Telephone Encounter - [...] to please contact office. Isa Godoy LPN [facility]10-21-2024 Telephone encounter Note* Telephone Encounter - Richard Jenkins DO - 01/28/2024 3:04 PM EDT Can let him know the results of the stomach x-ray and small bowel follow-through did not suggest any sign of cancer. He is scheduled to see Dr. Beck for possible stent placement in esophagus this may help with his symptoms of nausea. Richard Jenkins DO [facility]10-17-2024 History of Present illness Narrative* Brooke Samaniego [...] PATIENT PRESENTS WITH AN IMPLANTABLE OR ATTACHED ADVANCE SEAL DELIVERY SYSTEM MAINTAINER: No RADIOLOGY DEPARTMENT: General X-ray: Exam(s) Completed: GI/ Procedure(s): Upper GI with small bowel with barium contrast PERIPHERAL IV DATA: Not applicable SIGNED BY: RT Susan(R) January 24, 2024 2:36 PM documented in this encounterVeterans Health Administration10-17-2024 NoteHNO ID: [id number] Author: BROOKE SAMANIEGO RT(R) Service: ? Author Type: Boring Machine Operator Helper Type: Progress Notes Filed: 01/24/2024 14:36 Note [...] PATIENT PRESENTS WITH AN IMPLANTABLE OR ATTACHED ADVANCE SEAL DELIVERY SYSTEM MAINTAINER: No RADIOLOGY DEPARTMENT: General X-ray: Exam(s) Completed: GI/ Procedure(s): Upper GI with small bowel with barium contrast PERIPHERAL IV DATA: Not applicable SIGNED BY: RT Susan(R) January 24, 2024 2:36 [facility]10-11-2024 Telephone encounter Note* Telephone Encounter - Elvira Noriega LPN - 01/18/2024 1:02 PM EDT Appointment notes updated. Elvira Noriega LPN [facility]10-11-2024 Miscellaneous Notes* Telephone Encounter - Elvira Noriega [...] it OTC then can be ordered from [employer]. Isa Godoy LPN ' * Telephone Encounter - Richard Jenkins DO - 01/17/2024 3:25 PM EDT Can let him know that his copper level is slightly low. Recommend starting copper supplement, either copper gluconate or copper citrate 2 mg tablet once daily. If he cannot find it OTC then can be ordered from [employer]. Add copper level to labs when next here. Richard Jenkins DO documented in this encounterVeterans Health Administration10-11-2024 Telephone encounter Note * Telephone Encounter - Richard Jenkins DO - 01/18/2024 12:56 PM EDT CBC/Retic count. [facility]10-10[facility] Telephone encounter Note* Telephone Encounter - Isa [...] it OTC then can be ordered from [employer]. Isa Godoy LPN ' [facility]10-10-2024 Telephone encounter Note* Telephone Encounter - Richard Jenkins DO - 01/17/2024 3:25 PM EDT Can let him know that his copper level is slightly low. Recommend starting copper supplement, either copper gluconate or copper citrate 2 mg tablet once daily. If he cannot find it OTC then can be ordered from [employer]. Add copper level to labs when next here. Richard Jenkins DO [facility]10-10-2024 Telephone encounter Note* Telephone Encounter - Mary Mims MA - 01/17/2024 12:27 PM EDT Pt informed Mary Mims MA [facility]10-10-2024 Miscellaneous Notes* Telephone Encounter - Mary Mims [...] on hold. Please advise? documented in this encounterVeterans Health Administration10-10-2024 Telephone encounter Note * Telephone Encounter - Yaw Singh MD - 01/17/2024 11:51 AM EDT Advise patient to continue to stay off the Amlodipine. His BP is still on the low side. [facility]10-10-2024 Telephone encounter Note* Telephone Encounter - Cathi De Souza LPN - 01/17/2024 11:15 AM EDT Pt calls states just left Dr. Farfan office and forgot to ask if he would like him to re start hisamlodipine now? States was on hold. Please advise? [facility]10-10-2024 History of Present illness Narrative* Yaw Singh [...] vertebra (HCC) 07/12/2023 Coronary artery disease involving p[place]enta coronary artery without angina pectoris Seeing Dr. 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 Yaw Singh MD documented in this encounterVeterans Health Administration10-08-2024 History of Present illness Narrative* Richard Jenkins, [...] abdomen: Dedicated CT abdomen pelvis dictated separately. [employer] (topogram) images: No additional findings. CT A/P [...] chest CT performed will be reported separately. [employer] (topogram) images: No additional findings. EGD/EUS 04/26/2020: [...] seat fell asleep and kicked back of lifter/driver's chair causing him instant and severepain in lower thoracic area. Pain was most intense in March. MRI and PET reviewed by several radiologists. Consensus was no evidence of cancer and biopsy not recommended. He was seen at the spine center in [place]. Office visit 08/2023: Back pain significantly improved after passing kidney stones. Has days without back pain. 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 Here in the past couple weeks, I felt better than I felt since last summer. Presents for ongoing oncologic management. Interim history: Has been hospitalized several times at [facility]. Developed end-stage renal disease and started [...] No jaundice or rash. No petechiae. NEUROLOGIC: hair cutter II-XII are grossly intact. No focal motor [...] which included preparing to see the patient, [id number] patient care, completing clinical documentation, obtaining and/or reviewing separately obtained history, performing a medically appropriate examination, counseling and educating the pat ient/family/caregiver, ordering medications, tests, or procedures, communicating with other HCPs (not separately reported), and communicating results to the patient/family/caregiver. Richard Jenkins DO documented in this encounterVeterans Health Administration10-07-2024 Telephone encounter Note * Telephone Encounter - [...] as well to address. Jannet Goldsmith MA [facility]10-07-2024 Miscellaneous Notes* Telephone Encounter - Jannet Goldsmith [...] get CBC repeated this documented in this encounterVeterans Health Administration10-04-2024 Telephone encounter Note * Telephone Encounter - Alberta Candelaria MA - 01/11/2024 8:19 AM EDT Left additional message for patient to contact office. Alberta Candelaria MA [facility]10-03-2024 Telephone encounter Note* Telephone Encounter - Syl Jensen MA - 01/10/2024 3:16 PM EDT Kay from home health informed and verbalized understanding. Syl Jensen MA [facility]10-03-2024 Miscellaneous Notes* Telephone Encounter - Syl Jensen [...] to make you aware. documented in this encounterVeterans Health Administration10-03-2024 Telephone encounter Note * Telephone Encounter - Yaw Singh MD - 01/10/2024 3:00 PM EDT Advise Kay that if patient is becoming lethargic, confused, shortness of breath or fever will not come down that he needs to go to the ER. [facility]10-03-2024 Telephone encounter Note* Telephone Encounter - Cathi [...] .But did want to make you aware. [facility]10-01-2024 Telephone encounter Note* Telephone Encounter - Alberta Candelaria MA - 01/08/2024 10:10 AM EDT Patient was already seen. Alberta Candelaria MA [facility]10-01-2024 Miscellaneous Notes* Telephone Encounter - Alberta Candelaria MA - 01/08/2024 10:10 AM EDT Patient was already seen. Alberta Candelaria MA * Telephone Encounter - Alberta Candelaria MA - 01/02/2024 4:55 PM EDT Patient was D/C from [facility]. Spoke with nurse sadie to see if we could obtain any additional information such as the D/C summary from his stay at there facility and she indicated once the patient is D/C nursing staff doesn't have access to the patient's chart. She suggested calling Dr. Milner who is the director and would have been handling the patients car while there. Dr. Milner [phone] attempted to contact there office to obtain records they were experiencing high call volume was no longer able to stay on hold. Please try and call again tomorrow morning. Alberta Candelaria MA documented in this encounterVeterans Health Administration09-30-2024 Telephone encounter Note * Telephone Encounter - Gayatri Pradhan MA - 01/07/2024 10:01 AM EDT Message left for pt to call back for results. Gayatri Pradhan MA [facility]09-29-2024 History of Present illness Narrative* Yaw Singh MD - 01/06/2024 9:08 PM EDT Patient's home health 485 form / care plan for certification period 12/29/2023 to 02/26/2024 reviewed and signed. Relevant medical records were reviewed. Changes were communicated to home health agency documented in this encounterVeterans Health Administration09-29-2024 Telephone encounter Note * Telephone Encounter - Yaw Singh MD - 01/06/2024 9:02 PM EDT Let patient know his iron is low and want him to start taking Slo Fe over the counter one every other day along with Vit C 500 mg with it every other day. I placed an order to get CBC repeated this [facility]09-26-2024 History of Present illness Narrative* Yaw Singh MD - 01/03/2024 11:00 AM EDT Images from the original note were not included. Chief Complaint Patient presents with: Hospital F/U And retirement f/u HPI Jacob Landa is a 68 year old male who presents here today for Above Complaints.. Patient was seen in [place] [facility] 09/21/[address] abdominal [address]ici pain. CT [...] wounds on both butt cheeks. Patient has [facility] for wound care but was not referred to a outpatient wound care facility. Emotionally patient feels he is doing ok. Does not feel depressed and not anxious. 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 Was sent home from [facility] 12/28/2023 and has [facility]. He is getting [facility]PC and PHYSICAL THERAPY. Has occasional shortness of [...] vertebra (HCC) 07/12/2023 Coronary artery disease involving paskenta coronary artery without angina pectoris Seeing Dr. 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 Given at [facility] ER 09/10/23 POTASSIUM ORAL Take by [...] MIST) 0.65 % nasal spray Use 1 [place] in the nose as needed for cold/allergysymptoms. [...] which included preparing to see the patient, [id number] patient care, completing clinical documentation, performing a medically appropriate examination, counseling and educating the patient/family/caregiver and ordering medications, tests, or procedures. Yaw Singh MD documented in this encounterVeterans Health Administration09-25-2024 Telephone encounter Note * Telephone Encounter - Alberta Candelaria MA - 01/02/2024 4:55 PM EDT Patient was D/C from [facility]. Spoke with nurse sadie to see if we could obtain any additional information such as the D/C summary from his stay at there facility and she indicated once the patient is D/C nursing staff doesn't have access to the patient's chart. She suggested calling Dr. Milner who is the director and would have been handling the patients car while there. Dr. Milner [phone] attempted to contact there office to obtain records they were experiencing high call volume was no longer able to stay on hold. Please try and call again tomorrow morning. Alberta Candelaria MA [facility]09-24-2024 Telephone encounter Note* Telephone Encounter - Helena Velez RN - 01/01/2024 3:31 PM EDT Aisha calling back and asking for orders to be faxed to [facility] at [phone]. Faxed as requested. Helena Velez RN [facility]09-24-2024 Miscellaneous Notes* Telephone Encounter - Helena Velez RN - 01/01/2024 3:31 PM EDT Aisha calling back and asking for orders to be faxed to [facility] at [phone]. Faxed as requested. Helena Velez RN * [...] said tomorrow is patient dialysis day at [facility], asking if PCP wants to send order for H&H to be done? Pl ease advise documented in this encounterVeterans Health Administration09-24-2024 Telephone encounter Note * Telephone Encounter - Alberta Candelaria MA - 01/01/2024 3:19 PM EDT Left message for Bryanna regarding orders. Please find out where they would like the lab order sent. Alberta Candelaria MA [facility]09-24-2024 Telephone encounter Note* Telephone Encounter - Yaw Singh MD - 01/01/2024 3:06 PM EDT I placed an order but do not know where it needs faxed to. Order printed. [facility]09-24-2024 Telephone encounter Note* Telephone Encounter - Samaria Mac LPN - 01/01/2024 2:48 PM EDT Bryanna from [facility] calling patient had told her this morning at 3 am he had moderate amount of blood on his underwear in rectal area. She said his wound on buttocks, near rectal area is not actively bleeding. She advised to go to ER and patient refused. Nurse said tomorrow is patient dialysis day at [facility], asking if PCP wants to send order for H&H to be done? Pl ease advise [facility]09-23-2024 Telephone encounter Note* Telephone Encounter - Yaw Singh MD - 12/31/2023 4:00 PM EDT Noted. [facility]09-23-2024 Miscellaneous Notes* Telephone Encounter - Yaw Singh [...] 12/31/2023 9:29 AM EDT Hayde calling from [email or web address]. Patient got released on 12/28/23 and was seen by on the 12/29/23. Nurse Hayde noted that patient has moisture on skin of buttocks with breakdown. Ordered triad paste to apply 2 x daily and monitoring. Maybe fungal? They will reevaluate at next visit. Orders for: half-way, OT and PT Please review and advise Kaycee Menon LPN documented in this encounterVeterans Health Administration09-23-2024 Telephone encounter Note * Telephone Encounter - [...] can be taken they will do that. [facility]09-23-2024 Telephone encounter Note* Telephone Encounter - Yaw Singh MD - 12/31/2023 12:45 PM EDT Let Hayde know I agree with the wound care plan. See is she can get a would culture for bacteria and fungus? [facility]09-23-2024 Telephone encounter Note* Telephone Encounter - Kaycee Menon LPN - 12/31/2023 9:29 AM EDT Hayde calling from [email or web address]. Patient got released on 12/28/23 and was seen by on the 12/29/23. Nurse Hayde noted that patient has moisture on skin of buttocks with breakdown. Ordered triad paste to apply 2 x daily and monitoring. Maybe fungal? They will reevaluate at next visit. Orders for: half-way, OT and PT Please review and advise Kaycee Menon LPN [facility]09-20-2024 Telephone encounter Note* Telephone Encounter - Krystina Quinones LPN - 12/28/2023 2:13 PM EDT Janay advised of Dr Singh's message. She verbalizes understanding. Krystina Quinones LPN [facility]09-20-2024 Miscellaneous Notes* Telephone Encounter - Krystina Quinones [...] and states that patient was discharged from [place] on 12/27/2023 with the diagnosis of bilateral pleural effusion, LEELA, and Anemia. Janay asking if provider willing to follow patient with orders for half-way, physical therapy, and occupational therapy. [facility] doctor did sign orders to abeJanay asking if provider will follow orders? If agreeable please give Luis Alfredo call back . Thank you, Helena Velez RN documented in this encounterVeterans Health Administration09-20-2024 Telephone encounter Note * Telephone Encounter - Yaw Singh MD - 12/28/2023 1:47 PM EDT Yes I will follow. [facility]09-20-2024 Telephone encounter Note* Telephone Encounter - Helena Velez RN - 12/28/2023 11:55 AM EDT Janay from [facility] calls and states that patient was discharged from [place] on 12/27/2023 with the diagnosis of bilateral pleural effusion, LEELA, and Anemia. Janay asking if provider willing to follow patient with orders for half-way, physical therapy, and occupational therapy. [facility] doctor did sign orders to Janay fish asking if provider will follow orders? If agreeable please give Luis Alfredo call back . Thank you, Helena Velez, RN [facility]09-17-2024 History of Present illness Narrative* Krystina Quinones LPN - 12/25/2023 1:45 PM EDT Scan on 12/25/2023 12:52 PM by Danette Houston PA-C: EGD documented in this encounterVeterans Health Administration08-08-2024 History of Present illness Narrative* Krystina Quinones LPN - 11/15/2023 6:54 AM EDT Scan on 11/14/2023 6:00 PM by Danette Houston PA-C Scan on 11/14/2023 3:59 PM by Danette Houston PA-C: Consultation - Nephrology/Renal documented in this encounterVeterans Health Administration07-31-2024 History of Present illness Narrative* Alberta Candelaria MA - 11/07/2023 3:32 PM EDT Scan on 11/06/2023 10:54 AM by Danette Houston PA-C: Miscellaneous Clinical Documents Alberta Candelaria MA documented in this encounterVeterans Health Administration07-29-2024 History of Present illness Narrative* Alberta Candelaria [...] Scan on 11/05/2023 9:35 AM by Danette Houstno PA-C: Consultation - ID Patient was admitted on 10/29/2023 and D/C on 11/05/2023 SNF. This is patient's second Discharge this month. Patient was admitted on 10/12/2023 and D/C 10/25/2023 How soon would you like to see patient? Alberta Candelaria MA documented in this encounterVeterans Health Administration07-29-2024 History of Present illness Narrative* Krystina Quinones LPN - 11/05/2023 8:23 AM EDT Scan on 11/02/2023 5:55 PM by Danette Houston PA-C: EGD Scan on 11/02/2023 5:53 PM by Danette Houston PA-C: Miscellaneous Clinical Documents documented in this encounterVeterans Health Administration07-26-2024 History of Present illness Narrative* Alberta Candelaria MA - 11/02/2023 12:43 PM EDT Scan on 11/01/2023 8:09 PM by Danette Houston PA-C: Consultation - GI hospital admission - Dr. Beck. Alberta Candelaria MA documented in this encounterVeterans Health Administration07-25-2024 Telephone encounter Note * Telephone Encounter - Jennyfer Suresh - 11/01/2023 8:46 AM EDT Unable to reach letter sent out [facility]07-25-2024 Miscellaneous Notes* Telephone Encounter - Jennyfer Suresh [...] PM EDT I know he is in [facility] right now but can let him know the biopsy results were negative for cancer. That is great news. Please set up office visit with me in about 2 months. Richard Jenkins DO documented in this encounterVeterans Health Administration07-24-2024 History of Present illness Narrative* Alberta Candelaria MA - 10/31/2023 5:00 PM EDT Scan on 10/30/2023 3:12 PM by Danette Houston PA-C: Pulmonary Scan on 10/31/2023 9:39 AM by Danette Houston PA-C: Consultation - Emergency Medicine Patient is still admitted 10/31/2023. Alberta Candelaria MA documented in this encounterVeterans Health Administration07-24-2024 Telephone encounter Note * Telephone Encounter - uNria Sanches - 10/31/2023 4:18 PM EDT LVM for patient to return call to schedule ov appointment Nuria Sanches [facility]07-22-2024 History of Present illness Narrative* Alberta Candelaria MA - 10/29/2023 2:07 PM EDT Scan on 10/28/2023 10:26 AM by Danette Houston PA-C: Discharge Summary Patient was admitted to the hospital on 10/12/2023 and D/C 10/25/2023 for sepsis secondary acute cystitis with bactermia. Bilateral pleural effusions. Patient was placed on Dialysis. Patient was D/C half-way facility - [facility]. Scan on 10/29/2023 6:35 AM by Danette Houston PA-C: Consultation - Emergency Medicine Scan on 10/29/2023 7:27 AM by Danette Houston PA-C: Consultation - Emergency Medicine Patient taken back to [facility] ER on 10/29/2023 for SOB. Patient has volume overload and large left effusion and moderate right effusion. Patient is scheduled to have HD [facility]. Dr. Greenberg following. Dr. Mann for infectious disease. Patient currently Admitted. Alberta Candelaria MA documented in this encounterVeterans Health Administration07-20-2024 Telephone encounter Note * Telephone Encounter - Jennyfer Suresh - 10/27/2023 10:10 AM EDT Called patient and left a vm to return our call Jennyfer Suresh [facility]07-16-2024 Telephone encounter Note* Telephone Encounter - Isa Godoy LPN - 10/23/2023 2:06 PM EDT Message left on voicemail to contact office for biopsy results. Will also need OV with Dr. Jenkins in2 months. Isa Godoy LPN [facility]07-16-2024 Telephone encounter Note* Telephone Encounter - Richard Jenkins DO - 10/23/2023 1:14 PM EDT I know he is in [facility] right now but can let him know the biopsy results were negative for cancer. That is great news. Please set up office visit with me in about 2 months. Richard Jenkins DO [facility]07-02-2024 Telephone encounter Note* Telephone Encounter - Lauren West - 10/09/2023 1:36 PM EDT Patient contacted, scheduled appt with Dr. Davey 3:40 pm on 11-27-2023 Lauren West [facility] Work Phone: [phone] Miscellaneous Notes* Telephone Encounter - Lauren West [...] help lower his LDL? documented in this encounterVeterans Health Administration07-02-2024 History of Present illness Narrative* Helen Blair [...] for internal providers or letter via the [employer] for external providers. 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 Given at [facility] ER 09/10/23 POTASSIUM ORAL Take by [...] MIST) 0.65 % nasal spray Use 1 [place] in the nose as needed for cold/allergysymptoms. [...] which included preparing to see the patient, [id number] patient care, completing clinical documentation, obtaining and/or reviewing separately obtained history, performing a medically appropriate examination, counseling and educating the pat ient/family/caregiver and ordering medications, tests, or procedures. SIGNATURE: Helen Blair MD [facility] Department of Pulmonary and Critical Care Medicine DATE: October 09, 2023 documented in this encounterVeterans Health Administration07-01-2024 Telephone encounter Note * Telephone Encounter - Alberta Candelaria MA - 10/08/2023 4:34 PM EDT Please assist patient to schedule with ENDO. Alberta Candelaria MA [facility]07-01-2024 Telephone encounter Note* Telephone Encounter - Yaw Singh MD - 10/08/2023 4:24 PM EDT Consult to Endo placed. [facility]07-01-2024 Telephone encounter Note* Telephone Encounter - Helena [...] place order for this. Helena Velez RN [facility]07-01-2024 Telephone encounter Note* Telephone Encounter - Christiano Nolasco RN - 10/08/2023 4:08 PM EDT Called and left a voicemail for the Patient to call back and ask for a nurse to receive the providers message. Christiano Nolasco RN [facility]07-01-2024 Telephone encounter Note* Telephone Encounter - Yaw [...] injectable agents to help lower his LDL? [facility]07-01-2024 Telephone encounter Note* Telephone Encounter - Martin Siddiqi RN - 10/08/2023 2:42 PM EDT Instructed pt he will be able to drive himself home after seeing Dr Blair; understanding acknowledged Thank you. Martin Siddiqi RN [facility]07-01-2024 Miscellaneous Notes* Telephone Encounter - Martin Siddiqi RN - 10/08/2023 2:42 PM EDT Instructed pt he will be able to drive himself home after seeing Dr Blair; understanding acknowledged Thank you. Martin Siddiqi RN * Telephone Encounter - Frances Castaneda - 10/08/2023 2:34 PM EDT curr Patient Caller Name: Jacob Landa Call Back Number [phone] Reason for Call: Other question Additional Information: patient is coming in for first visit with Pulmonology and requesting a callto advise if he will need someone to lifter/driver patient 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 Call back number above has been verified FOR EMERGENCY CALLS: Shortness of breath, trouble breathing, Oxygen level less than 90%, requiring immediate attention or less than 1 hour response time- route HIGH PRIORITY to nursing Please Route Completed Encounters to nursing documented in this encounterVeterans Health Administration07-01-2024 Telephone encounter Note * Telephone Encounter - Yara AltamiranoFrances vilchis - 10/08/2023 2:34 PM EDT curr Patient Caller Name: Jacob Landa Call Back Number [phone] Reason for Call: Other question Additional Information: patient is coming in for first visit with Pulmonology and requesting a callto advise if he will need someone to lifter/driver patient 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 Call back number above has been verified FOR EMERGENCY CALLS: Shortness of breath, trouble breathing, Oxygen level less than 90%, requiring immediate attention or less than 1 hour response time- route HIGH PRIORITY to nursing Please Route Completed Encounters to nursing [facility]06-28-[facility] Instructions* Patient Instructions* Yaw Singh MD - 10/05/2023 10:46 AM EDT Please do the blood work and urine tests on or after 10/19/2023 Please get labs and urine test done on or after 03/07/2024 prior to your next visit. documented in this encounterVeterans Health Administration06-28-2024 History of Present illness Narrative* Yaw Singh MD - 10/05/2023 9:51 AM EDT Chief Complaint Patient presents with: F/U 6 months HPI Jacob Landa is a 68 year old male who presents here today for 6 month follow up. Patient indicated that he was in the [facility] ER 09/11/2023 found a kidney stone. [...] dilated Aorta. This information was faxed to [facility] but he has not received [...] of right wrist Coronary artery disease involving p[place]enta coronary artery without angina pectoris Seeing Dr. 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 Given at [facility] ER 09/10/23 HYDROcodone-acetaminophen 2.5-325 mg tab Take 1 tablet by mouth every 6 hours as needed for pain. Given at [facility] ER 09/10/23 POTASSIUM ORAL Take by mouth. nystatin (MYCOSTATIN) cream Apply to affected area two times a day. ondansetron (ZOFRAN) 8 mg tablet Take 1 tablet by mouth every 8 hours as needed for nausea/vomiting. sodium chloride (SALINE MIST) 0.65 % nasal spray Use 1 [place] in the nose as needed for cold/allergysymptoms. 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 If he exerts himself he will get [...] mg QD 4. 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- ICD9: 414.01, ICD10: [...] prior Yaw Singh MD documented in this encounterVeterans Health Administration06-14-2024 Telephone encounter Note * Telephone Encounter - Hayde Summers LPN - 09/21/2023 12:30 PM EDT Spoke with pt and information listed below given. Pt verbalizes understanding. Hayde Summers LPN [facility]06-14-2024 Miscellaneous Notes* Telephone Encounter - Hayde Summers LPN - 09/21/2023 12:30 PM EDT Spoke with pt and information listed below given. Pt verbalizes understanding. Hayde Summers LPN * Telephone Encounter - Krystina Quinones LPN - 09/21/2023 11:43 AM EDT Left message for pt to contact office. Please see message below. Office did fax a copy of Echo to [facility]. Krystina Quinones LPN * Telephone [...] up with cardio scheduled? documented in this encounterVeterans Health Administration06-14-2024 Telephone encounter Note * Telephone Encounter - Krystina Quinones LPN - 09/21/2023 11:43 AM EDT Left message for pt to contact office. Please see message below. Office did fax a copy of Echo to [facility]. Krystina Quinones LPN [facility]06-14-2024 Telephone encounter Note* Telephone Encounter - Usha Mcgovern PA-C - 09/21/2023 10:51 AM EDT Let patient know that US of heart shows tht his shows a dilated aorta. I don't see this noted on his previous echo from 2020. This will need to be monitored by cardiology. We will send them copy of ECHO. When is his follow up with cardio scheduled? [facility]06-12-2024 Telephone encounter Note* Telephone Encounter - Sadie Mcgraw - 09/19/2023 5:25 PM EDT Spoke to pt and scheduled biopsy for 09/25/23. [facility]06-12-2024 Miscellaneous Notes* Telephone Encounter - Sadie Mcgraw [...] for this procedure: low risk. Reference from [facility] Supervisor Laundry: [email or web address] STAFF SIGNATURE: Renetta Davis MD DATE: September [...] (LASIX ORAL) Take by mouth. Given at [facility] ER 09/10/23 HYDROcodone-acetaminophen 2.5-325 mg tab Take 1 tablet by mouth every 6 hours as needed for pain. Given at [facility] ER 09/10/23 POTASSIUM ORAL Take by [...] MIST) 0.65 % nasal spray Use 1 [place] in the nose as needed for cold/allergysymptoms. [...] am REQUESTING STAFF: Dr. Richard Jenkins PHONE/PAGER: [phone] SPECIFICS OF THE REQUEST: (Please be as [...] OF THE REQUEST: MRI Date: 09/10/23 IMAGING: [facility] documented in this encounterVeterans Health Administration06-10-2024 Telephone encounter Note * Telephone Encounter - [...] for this procedure: low risk. Reference from [facility] Supervisor Laundry: [email or web address] STAFF SIGNATURE: Renetta Davis MD DATE: September 17, 2023 TIME: 5:00 PM [facility] Work Phone: 1(206) 585-826706-10-2024 Telephone encounter Note* Telephone Encounter - Carla Izaguirre OCCA - 09/17/2023 2:50 PM EDT TC to patient who is informed of below. Patient is agreeable to seeing Pulm. Please contact patient to assist in scheduling. Thank you. PERRY Rivera [facility]06-10-2024 Miscellaneous Notes* Telephone Encounter - Carla Izaguirre [...] well. Usha Mcgovern PA-C documented in this encounterVeterans Health Administration06-10-2024 Telephone encounter Note * Telephone Encounter - [...] and Echo as well. Usha Mcgovern PA-C [facility]06-10-2024 Telephone encounter Note* Telephone Encounter - Hayley Pickens LPN - 09/17/2023 10:42 AM EDT BX. COORDINATOR INFORMATION LAB RESULTS: PT INR (no units) Date Value 08/06/2020 1.0 APTT (sec) Date Value 08/06/2020 25.5 Platelet Count (k/uL) Date Value 02/13/2023 158 06/02/2021 159 Current Outpatient Medications Medication Sig furosemide (LASIX ORAL) Take by mouth. Given at [facility] ER 09/10/23 HYDROcodone-acetaminophen 2.5-325 mg tab Take 1 tablet by mouth every 6 hours as needed for pain. Given at [facility] ER 09/10/23 POTASSIUM ORAL Take by [...] MIST) 0.65 % nasal spray Use 1 [place] in the nose as needed for cold/allergysymptoms. [...] DATE: September 17, 2023 TIME: 10:42 AM [facility]06-10-2024 Miscellaneous Notes* Telephone Encounter - Helena Urrutia - 09/17/2023 9:29 AM EDT Via What the Trend, request has been sent to [facility]. This PSS also called [facility] and they will triage and call the patient. Patient is aware to expect a call from [facility] to schedule. Helena Urrutia * Telephone Encounter - Isa Godoy LPN - 09/17/2023 8:44 AM EDT Spoke with pt. Regarding results of recent <RI and the suspicion of of possible cancer. Dr. Jenkins would like to have him scheduled at orthopaedic hospital or [facility] for imaging guided biopsy of the T10 [...] would like to have him scheduled at orthopaedic hospital or [facility] for imaging guided biopsy of the T10 vertebrae. Richard Jenkins DO documented in this encounterVeterans Health Administration06-10-2024 Telephone encounter Note * Telephone Encounter - Helena Urrutia - 09/17/2023 9:29 AM EDT Via What the Trend, request has been sent to [facility]. This PSS also called [facility] and they will triage and call the patient. Patient is aware to expect a call from [facility] to schedule. Helena Urrutia [facility]06-10-2024 Telephone encounter Note* Telephone Encounter - Jada Hernández - 09/17/2023 9:06 AM EDTSummary: Bone Biopsy RADIOLOGY CALL CENTER INTAKE DATE: 09/17/23 TIME: 9:10 am REQUESTING STAFF: Dr. Richard Jenkins PHONE/PAGER: [phone] SPECIFICS OF THE REQUEST: (Please be as [...] OF THE REQUEST: MRI Date: 09/10/23 IMAGING: [facility]06-10-2024 Telephone encounter Note* Telephone Encounter - Isa Godoy LPN - 09/17/2023 8:44 AM EDT Spoke with pt. Regarding results of recent Pt. Voiced understanding. PSS please reach out to get pt. Scheduled. sIa Godoy LPN [facility]06-07-2024 Telephone encounter Note* Telephone Encounter - Richard Jenkins DO - 09/14/2023 6:12 PM EDT When I last saw him, his back was feeling much better from the injury he sustained last fall. However repeat MRI is more suspicious for possible cancer. I would like to have him scheduled at orthopaedic hospital or [facility] for imaging guided biopsy of the T10 vertebrae. Richard Jenkins DO [facility]06-07-2024 Telephone encounter Note* Telephone Encounter - Alberta Candelaria MA - 09/14/2023 1:19 PM EDT Patient notified and voiced understanding. Alberta Candelaria MA [facility]06-07-2024 Miscellaneous Notes* Telephone Encounter - Alberta Candelaria [...] yet. Usha Mcgovern PA-C documented in this encounterVeterans Health Administration06-07-2024 Telephone encounter Note * Telephone Encounter - [...] on chest xray yet. Usha Mcgovern PA-C [facility]06-06-2024 Telephone encounter Note* Telephone Encounter - Usha Mcgovern PA-C - 09/13/2023 8:13 AM EDT Noted. [facility]06-06-2024 Miscellaneous Notes* Telephone Encounter - Usha Mcgovern [...] abdomen. Alberta Candelaria MA documented in this encounterVeterans Health Administration06-06-2024 History of Present illness Narrative* Alix Hong, [...] PATIENT PRESENTS WITH AN IMPLANTABLE OR ATTACHED ADVANCE SEAL DELIVERY SYSTEM MAINTAINER: No RADIOLOGY DEPARTMENT: General X-ray: Exam(s) Completed: Chest X-Ray PERIPHERAL IV DATA: Not applicable SIGNED BY: RT Jake(Bea) September 13, 2023 8:06 AM documented in this encounterVeterans Health Administration06-06-2024 Instructions* Patient Instructions* Usha Mcgovern PA-C - 09/13/2023 7:26 AM EDT Please contact cardiology to make sure they are aware of recent diagnosis of pleural effusions. documented in this encounterVeterans Health Administration06-06-2024 History of Present illness Narrative* Usha Mcgovern PA-C - 09/13/2023 7:20 AM EDT Chief Complaint Patient presents with: ER F/U: [facility] ER 09/10/23 HPI Jacob Landa is [...] of right wrist Coronary artery disease involving paskenta coronary artery without angina pectoris Seeing Dr. 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 Given at [facility] ER 09/10/23 HYDROcodone-acetaminophen 2.5-325 mg tab Take 1 tablet by mouth every 6 hours as needed for pain. Given at [facility] ER 09/10/23 POTASSIUM ORAL Take by [...] MIST) 0.65 % nasal spray Use 1 [place] in the nose as needed for cold/allergysymptoms. [...] METABOLIC PANEL 4. 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- ICD9: 414.01, ICD10: [...] exercise Usha Mcgovern PA-C documented in this encounterVeterans Health Administration06-05-2024 Telephone encounter Note * Telephone Encounter - Yaw Singh MD - 09/12/2023 5:04 PM EDT ER provider placed on lasix and potassium. Told him to f/u with PCP and cardio (he sees Ludin) Would at least get pulse ox and if less then 90% send him to ER. Check AP/lat chest x-ray, BNP, BMP, Echo Advise him he needs to see Ludin. [facility]06-05-2024 Telephone encounter Note* Telephone Encounter - Alberta [...] in left lower abdomen. Alberta Candelaria MA [facility]06-03-2024 History of Present illness Narrative* Gloria Sinclair, [...] PATIENT PRESENTS WITH AN IMPLANTABLE OR ATTACHED ADVANCE SEAL DELIVERY SYSTEM MAINTAINER: No ALLERGIES: Reviewed and unchanged CONTRAST ALLERGY: NO. EXAM: MRI - CONTRAST TYPE: GROUP II PERIPHERAL IV DATA: Ambulatory: A peripheral IV was started in the Right antecubital site with a Angio cath: 22 gauge. RADIOLOGY DEPARTMENT: MR; Exam(s) Completed: Spine: Thoracic spine SIGNATURE: RT Arlen(Bea) PATIENT NAME: Jacob Landa DATE: September 10, 2023 TIME: 9:05 AM documented in this encounterVeterans Health Administration05-30-2024 History of Present illness Narrative* Tye Flores [...] Patient to be seen for Therapeutic exercise (34249), Neuromuscular re-education (16348), Manual therapy (93394), Therapeutic activities (55433), Self-alf management (86274), Patient/Family/Caregiver Education PLAN FOR NEXT VISIT: Core [...] 1753 Tye Flores PT documented in this encounterVeterans Health Administration05-05-2024 Telephone encounter Note * Telephone Encounter - Susan Nation - 08/12/2023 12:05 PM EDT Scheduled MRI with patient [facility] Work Phone: [phone] 401-874905-05-2024 Miscellaneous Notes* Telephone Encounter - Susan Nation - 08/12/2023 12:05 PM EDT Scheduled MRI with patient * Telephone Encounter - Helena Urrutia - 08/10/2023 10:39 AM EDT Check out comments: MRI Thoracic spine when able, OV based on results of MRI documented in this encounterVeterans Health Administration05-03-2024 Telephone encounter Note * Telephone Encounter - Helena Urrutia - 08/10/2023 10:39 AM EDT Check out comments: MRI Thoracic spine when able, OV based on results of MRI [facility]05-03-2024 History of Present illness Narrative* Richard Jenkins [...] abdomen: Dedicated CT abdomen pelvis dictated separately. Director [employer] (topogram) images: No additional findings. CT A/P [...] chest CT performed will be reported separately. Director [employer] (topogram) images: No additional findings. EGD/EUS 04/26/2020: [...] carboplatin and paclitaxel. 05/24 through 06/23/2020. Underwent [place] esophagectomy on 08/09/2020. Pathology: 1. Esophagus [...] seat fell asleep and kicked back of lifter/driver's chair causing him instant and severepain in lower thoracic area. Pain was most intense in March. MRI and PET reviewed by several radiologists. Consensus was no evidence of cancer and biopsy not recommended. He was seen at the spine center in [place]. Currently-- Back pain significantly improved after passing kidney stones. Has days without back pain. 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 No petechiae. NEUROLOGIC: hair cutter II-XII are grossly intact. No focal motor [...] which included preparing to see the patient, [id number] patient care, completing clinical documentation, obtaining and/or reviewing separately obtained history, performing a medically appropriate examination, counseling and educating the pat ient/family/caregiver, ordering medications, tests, or procedures, communicating with other HCPs (not separately reported), and communicating results to the patient/family/caregiver. Richard Jenkins DO documented in this encounterVeterans Health Administration04-26-2024 History of Present illness Narrative* Beatrice Zuleta [...] PATIENT PRESENTS WITH AN IMPLANTABLE OR ATTACHED ADVANCE SEAL DELIVERY SYSTEM MAINTAINER: No ALLERGIES: Reviewed and unchanged CONTRAST ALLERGY: [...] 2023 TIME: 9:44 AM documented in this encounterVeterans Health Administration04-22-2024 History of Present illness Narrative* Tye Flores, [...] Planned: 4 Planned Treatment Interventions: Therapeutic exercise (95644), Neuromuscular re- education (86729), Manual therapy (17146), Therapeutic activities (12136), Self- alf management (99149), Patient/Family/Caregiver Education PLAN FOR NEXT VISIT: Core [...] 1613 Tye Flores, PT documented in this encounterVeterans Health Administration04-11-2024 Miscellaneous Notes* Telephone Encounter - Helena Urrutia [...] appt with spine provider on 07/11 in [place]. He called asking if Dr. Jenkins has been able to review. documented in this encounterVeterans Health Administration04-04-2024 History of Present illness Narrative* Jesus Manuel Resendiz PA-C - 07/12/2023 10:34 AM EDT Images from the original note were not included. [facility] [address] [address] 07/12/2023 ASSESSMENT AND PLAN: Assessment : Encounter [...] today with this patient visit. This includes wrvs-lz-[id number] time, review of chart records regarding conservative care history, spine- pertinent imaging, and communication/care coordination with referring provider, problem-specific history-taking and counseling/education regarding treatment options. cc: Richard Jenkins [address] [facility] [id number] Results of consultation to be transmitted via electronic medical record for those providers who practice within [facility] or with access to [employer] via MD Connect, or via letter. 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 [...] of right wrist Coronary artery disease involving paskenta coronary artery without angina pectoris Seeing Dr. [...] 11/17/2020 Personal history of colonic polyps 12/27/2009 Human Resources Trainer's nodules 03/30/2023 Will try pamelor Pleural effusion [...] COLONOSCOPY W/BIOPSY SINGLE/MULTIPLE 02/22/2007 Diminutive polyp distal [id number] ECHO 01/08/2021 EGD 04/15/2020 HEART CATHETERIZATION 12/2018 [...] <AGE 11 Tonsillectomy TOT/SUB ESOPHAGECTOMY W/THORACOT 08/09/2020 [place] esophagectomy, jejunostomy tube placement Social History [...] STUDIES: See discussion above documented in this encounterVeterans Health Administration03-25-2024 Miscellaneous Notes* Telephone Encounter - Idalia Mccollum LPN - 07/02/2023 9:55 AM EDT Pt notified of results and provider message. Pt voiced understanding. Idalia Mccollum LPN * Telephone Encounter - Tata Granado LPN - 07/02/2023 9:17 AM EDT Left message to call office. 07/02/2023 9:18 AM. Tata Granado LPN * Telephone Encounter - Usha Mcgvoern PA-C - 07/02/2023 8:05 AM EDT Let patient know that his gallbladder is normal. HIDA scan does show reflux. US shows some kidney stones but nonobstructive pattern. Similar to what was seen in CT scan back inNov. I would continue with the back specialist and follow up with with gastro as well if symptoms continue. Usha Mcgovern PA-C documented in this encounterVeterans Health Administration03-22-2024 Miscellaneous Notes* Telephone Encounter - Yaw Singh [...] function labs were ok. documented in this encounterVeterans Health Administration03-21-2024 History of Present illness Narrative* Pita Palumbo, [...] PATIENT PRESENTS WITH AN IMPLANTABLE OR ATTACHED ADVANCE SEAL DELIVERY SYSTEM MAINTAINER: No CREATININE: Creatinine Date Value Ref Range [...] 11:35 PATIENT DISCHARGED TO: Ambulatory patient, left [place] department area. A Diagnostic radioactive procedure has taken place, with no further precautions necessary other than routine body substance precautions. More information regarding radiation safety can be found usingthis link: [email or web address] SIGNATURE: RT Chan(Bea) PATIENT NAME: Jacob Landa DATE: June 28, 2023 TIME: 13:25 PM PAGER/CONTACT #: documented in this encounterVeterans Health Administration03-21-2024 History of Present illness Narrative* Rosa Arteaga [...] PATIENT PRESENTS WITH AN IMPLANTABLE OR ATTACHED ADVANCE SEAL DELIVERY SYSTEM MAINTAINER: No RADIOLOGY DEPARTMENT: Ultrasound PERIPHERAL IV DATA: Not applicable SIGNED BY: Rosa Arteaga RDMS June 28, 2023 12:40 PM documented in this encounterVeterans Health Administration03-14-2024 Miscellaneous Notes* Telephone Encounter - Yaw Singh [...] 10 mg a day. 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 [...] attention. Usha Mcgovern PA-C documented in this encounterVeterans Health Administration03-11-2024 Miscellaneous Notes* Telephone Encounter - Sabrina Hernandez - 06/18/2023 1:48 PM EDT Called patient and scheduled him for first available in [place]. Sabrina Crouch * Telephone Encounter - Isa Godoy LPN - 06/18/2023 12:30 PM EDT Spoke with pt. Informed no evidence of cancer in the biopsies. So, all the workup so far has not shown any clear evidence of recurrent cancer which is great. Dr. Jenkins would like to make a referral to the spine center at [place] for him. Pt. Voiced understanding. Informed he has appt. Tomorrow with Usha Mcgovern because the "storm horses "are worse ,instructed to keep that appt. To help him get some relief, but our PSS will still make referral to spine center in [place]. That is fine with pt. Isa Godoy LPN * Telephone Encounter - Richard Jenkins DO - 06/18/2023 12:20 PM EDT There was no evidence of cancer in the biopsies. So, all the workup so far has not shown any clear evidence of recurrent cancer which is great. I would like to make a referral to the spine center at [place] for him. Richard Jenkins DO * Telephone Encounter - Isa Godoy LPN - 06/15/2023 10:40 AM EST Pt. Instructed to contact Dr. Bocanegra office for pathology results. Isa Godoy LPN * Telephone Encounter - Helena Ururtia - 06/15/2023 10:06 AM EST Patient called in as he hasn't heard from anyone with the results of the most recent pathology. Additionally he commented on occasionally having a "charley horse" in his back on and off. Please advise. Helena Urrutia documented in this encounterVeterans Health Administration02-27-2024 NoteHNO ID: [id number] Author: KRISTINE HARRIS APRN.STAKING ENGINEER Service: Nursing Author Type: Nurse Log Roper Type: Anesthesia Procedure Notes Filed: 06/05/2023 14:10 Note Text: ANESTHESIOLOGY PROCEDURE NOTE Airway General Information Procedure Start Time/Medication Administration: 06/05/2023 2:03 PM Patient location during procedure: OR Timeout Performed Pre-procedure: timeout performed Consent Obtained: Yes Patient identity confirmed: arm band and patient sedated or unresponsive Staffing Anesthesiologist: Cong Chew MD STAKING ENGINEER: Kristine Harris APRN.STAKING ENGINEER Performed by: STAKING ENGINEER Indications and Patient Condition Indications for airway [...] no Airway not difficult SIGNATURE: Kristine Harris APRN.STAKING ENGINEER PATIENT NAME: Jacob Landa DATE: June 05, 2023 TIME: 2:10 PM CSN: [id number] History and physical note* Aruna Mendez APRN.WILDLIFE CONSERVATION OFFICER - 06/05/2023 1:00 PM EST HISTORY AND [...] Esophageal Adenocarcinoma (Hcc) Coronary Artery Disease Involving [place] Coronary Artery Without Angina Pectoris [place] ([facility] Keratosis) Medicare Annual Wellness Visit, Subsequent Pleural Effusion Advance Directive Discussed With Patient Medication Management Prostate Disorder Decreased Sexual Desire Human Resources Trainer's 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 [...] no history of chest pain, palpitations, CHF, [place], cardiac surgery or stents GI: No history [...] Plan EGD today Coronary artery disease involving [place] coronary artery without angina pectoris Overview Seeing [...] which included preparing to see the patient, [id number] patient care, completing clinical documentation, and performing a medically appropriate examination. Instructions Given to Patient: Patient given verbal preop instructions and voices comprehension and compliance. SIGNATURE: Aruna Mendez APRN.CNP PATIENT NAME: Jacob Landa DATE: June 05, 2023 TIME: 12:09 PM PAGER/CONTACT #: documented in this encounterVeterans Health Administration02-20-2024 Miscellaneous Notes* Telephone Encounter - Susan Nation [...] Thank you. Susan Jones. documented in this encounterVeterans Health Administration01-17-2024 NoteHNO ID: [id number] Author: JURGEN BOCANEGRA MD Service: ? Author Type: Physician Type: Progress Notes Filed: 04/26/2023 16:22 Note Text: Jurgen Bocanegra M.D. Surgical Oncology [address] [facility], [address] [place] [id number] SUBJECTIVE HPI Jacob Landa is a 68 [...] of right wrist Coronary artery disease involving [place] coronary artery without angina pectoris Seeing Dr. 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 15.0 mCi F18 FDG. No other medications given.. ADMINISTRATION TIME: 1123 PATIENT DISCHARGED TO: Ambulatory patient, left [place] department area. A Diagnostic radioactive procedure has taken place, with no further precautions necessary other than routine body substance precautions. More information regarding radiation safety can be found using this link: [email or web address] SIGNATURE: RT Shanice(R) PATIENT NAME: Jacob Landa DATE: April 10, 2023 TIME: 11:52 AM [facility]AGER[facility]CONTACT [phone] Miscellaneous Notes* Telephone Encounter - Ruthy Lomeli [...] scan. Richard Jenkins DO documented in this encounterVeterans Health Administration11-21-2023 History of Present illness Narrative* Jessica Olvera APRN.WILDLIFE CONSERVATION OFFICER - 02/27/2023 3:07 PM EST This note was created using NoteWriter. Subjective Jacob Landa is a 67 year old male. 67 year old male with PMH CABG, HTN, hyperlipidemia, asthma and GERD presents for illness. Acute onset of symptoms 3 weeks INFORMATICS PHYSICIAN LIAISON +sinus pressure +congestion +runny nose +cough +sore throat Denies SOB. Denies dyspnea Denies abdominal pain. Denies N/V/D Utilized home OTC The history is provided by the patient. No truck bench mechanic was used. Cough This is a new [...] of right wrist Coronary artery disease involving [place] coronary artery without angina pectoris Seeing Dr. [...] COLONOSCOPY W/BIOPSY SINGLE/MULTIPLE 02/22/2007 Diminutive polyp distal [id number] ECHO 01/08/2021 EGD 04/15/2020 HEART CATHETERIZATION 12/2018 [...] MIST) 0.65 % nasal spray Use 1 [place] in the nose as needed for cold/allergysymptoms. [...] if symptoms persist or worsen. Jessica Olvera APRN.WILDLIFE CONSERVATION OFFICER documented in this encounterVeterans Health Administration11-15-2023 Miscellaneous Notes* Telephone Encounter - Jyoti Fajardo [...] MRI. Richard Jenkins DO documented in this encounterVeterans Health Administration11-13-2023 History of Present illness Narrative* Yaw Singh MD - 02/19/2023 8:54 PM EST Patient had to reschedule. documented in this encounterVeterans Health Administration11-07-2023 History of Present illness Narrative* Beatrice Zuleta [...] 2023 TIME: 10:20 AM documented in this encounterVeterans Health Administration08-16-2023 History of Present illness Narrative* Alberta Candelaria MA - 11/22/2022 1:32 PM EDT Scan on 11/20/2022 9:06 AM by Provider, OPAL Samaniego: Consultation - Cardiology Alberta Candelaria MA documented in this encounterVeterans Health Administration05-16-2023 History of Present illness Narrative* Richard Jenkins [...] abdomen: Dedicated CT abdomen pelvis dictated separately. Director [employer] (topogram) images: No additional findings. CT A/P [...] chest CT performed will be reported separately. Director [employer] (topogram) images: No additional findings. EGD/EUS 04/26/2020: [...] No jaundice or rash. No petechiae. NEUROLOGIC: hair cutter II-XII are grossly intact. No focal motor [...] Lymph 1.00 - 4.00 k/uL 0.61 (L) [place]% % 11.0 Abs [place] <0.87 k/uL 0.47 Eosin% % 3.5 Abs [...] months. -Follow-up with his PCP and his utilization specialist for other healthcare needs including management of [...] which included preparing to see the patient, [id number] patient care, completing clinical documentation, obtaining and/or reviewing separately obtained history, performing a medically appropriate examination, ordering medications, tests, or procedures, and communicating results to the patient/family/caregiver. Richard Jenkins DO documented in this encounterVeterans Health Administration05-03-2023 History of Present illness Narrative* Usha Mcgovern [...] of right wrist Coronary artery disease involving [place] coronary artery without angina pectoris Seeing Dr. [...] COLONOSCOPY W/BIOPSY SINGLE/MULTIPLE 02/22/2007 Diminutive polyp distal [id number]-[id number] ECHO 01/08/2021 EGD 04/15/2020 HEART CATHETERIZATION 12/2018 [...] <AGE 11 Tonsillectomy TOT/SUB ESOPHAGECTOMY W/THORACOT 08/09/2020 [place] esophagectomy, jejunostomy tube placement Family History [...] MIST) 0.65 % nasal spray Use 1 [place] in the nose as needed for cold/allergysymptoms. [...] with specialist 5. 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- ICD9: 414.01, ICD10: [...] months. Usha Mcgovern PA-C documented in this encounterVeterans Health Administration04-26-2023 History of Present illness Narrative* Queta Hunt APRN.WILDLIFE CONSERVATION OFFICER - 08/02/2022 1:55 PM EDT Part of this note was copied from previous note, all content has been individually reviewed, updated as necessary, and thoroughly reviewed. [facility] - OUTPATIENT THORACIC SURGERY CLINIC NOTE PT NAME: Jacob Landa [facility] NO: [id number] THORACIC SURGEON: Renetta Radford M.D. DATE OF [...] mucosa and intestinal metaplasia, negative for carcinoma. [facility] 08/13/2020 SYNOPTIC REPORT OF BERRY PATHOLOGIC FINDINGS [...] 67 year old year old male s/p [place] esophagectomy, Pyloromyotomy, Jejunostomy tubeplacement with Dr Renetta Radford on 08/09/2020. Pathology showed ypT3N0 adenocarcinoma distal esophagus. JARAD. PLAN: - Return for EGD in 1 year - Oncology follow up, Dr. Jenkins - Radiation/Oncology, Dr.Lee Queta Gleason APRN.WILDLIFE CONSERVATION OFFICER documented in this encounterVeterans Health Administration04-26-2023 Nurse Note* Nuria Blandon RN - 08/02/2022 [...] RN In Department: GASTROENTEROLOGY documented in this encounterVeterans Health Administration03-20-2023 Miscellaneous Notes* Telephone Encounter - Alberta Candelaria [...] Patient calling to say he was in [facility] ER on Friday 06/23 for a kidney stone which he thinks he passed on Sunday afternoon because he had blood in his urine. He no longer has blood in his urine. He says he does not notice any left sided flank pain because he is taking pain medication [place] and Ibuprofen as needed. He was given Dr. Danielle's name for follow up if symptoms don't resolve. He is asking if he should follow up with him or should he schedule ER follow up with PCP? Montserrat Varner RN documented in this encounterVeterans Health Administration03-20-2023 History of Present illness Narrative* Sia Triana LPN - 06/26/2022 12:24 PM EDT Scan on 06/23/2022 9:54 PM by External Provider: Consultation - Emergency Medicine Scan on 06/23/2022 6:51 PM by External Provider: CT Scan documented in this encounterVeterans Health Administration03-10-2023 Miscellaneous Notes* Telephone Encounter - Kelli Whitehead - 06/16/2022 9:06 AM EST Reason for call: Mr. Landa would like to schedule a f/u appointment with Queta Gleason. 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 [...] COLONOSCOPY W/BIOPSY SINGLE/MULTIPLE 02/22/2007 Diminutive polyp distal [id number] ECHO 01/08/2021 EGD 04/15/2020 HEART CATHETERIZATION 12/2018 [...] <AGE 11 Tonsillectomy TOT/SUB ESOPHAGECTOMY W/THORACOT 08/09/2020 [place] esophagectomy, jejunostomy tube placement ALLERGIES Environmental Allergies [Other] MEDICATIONS benzonatate (TESSALON PERLE) 100 mg capsule^Take 2 capsules by mouth three times daily as needed.^Disp: 40 capsule^Rfl: 0 guaiFENesin (MUCINEX) 600 mg 12 hr tablet^Take 2 tablets by mouth twice daily.^Disp: 24 tablet^Rfl:0 sodium chloride (SALINE MIST) 0.65 % nasal spray^Use 1 [place] in the nose as needed for cold/allergysymptoms.^Disp: [...] of care. This note was generated using Syrinix software. It may contain errors in wording, punctuation, or spelling. Yaw Smith APRN.MOHINI documented in this encounterVeterans Health Administration02-20-2023 Miscellaneous Notes* Telephone Encounter - Helena Urrutia [...] you. Mari Akhtar APRN.MOHINI documented in this encounterVeterans Health Administration02-16-2023 Nurse Note* Isa Valdez LPN - 05/25/2022 9:07 AM EST Est. Pt, 3 month f/u, discuss recent CT and labs. Pt. Had been on Lasix, last September or October ran out, never had refills. Dr. Jenkins OV notes in September 2021 informed to continue Lasix 20 mg daily. Nothing mentioned in October notes Isa Valdez LPN documented in this encounterVeterans Health Administration02-16-2023 History of Present illness Narrative* Mari Akhtar [...] abdomen: Dedicated CT abdomen pelvis dictated separately. Director College (topogram) images: No additional findings. CT A/P [...] chest CT performed will be reported separately. Director [employer] (topogram) images: No additional findings. EGD/EUS 04/26/2020: [...] carboplatin and paclitaxel. 05/24 through 06/23/2020. Underwent [place] esophagectomy on 08/09/2020. Pathology: 1. Esophagus [...] k/uL 0.54 (L) 0.51 (L) 0.70 (L) [place]% % 8.0 7.3 8.3 Abs [place] <0.87 k/uL 0.32 0.35 0.48 Eosin% % [...] months. -Follow-up with his PCP and his utilization specialist for other healthcare needs including management of [...] visit. Mari Akhtar APRN.MOHINI documented in this encounterVeterans Health Administration02-13-2023 History of Present illness Narrative* Helen Khanueger [...] 2022 TIME: 3:54 PM documented in this encounterVeterans Health Administration01-12-2023 Miscellaneous Notes* Telephone Encounter - Socrates Leonard [...] Urine - Blood In-ADULT- documented in this encounterVeterans Health Administration12-12-2022 Miscellaneous Notes* Telephone Encounter - Alberta Candelaria MA - 03/20/2022 10:36 AM EST Patient notified and voiced understanding. Alberta Candelaria MA * Telephone Encounter - Yaw Singh MD - 03/19/2022 2:06 PM EST Let patient know his testosterone level was pretty good at 455. I do not feel replacement is needed. documented in this encounterVeterans Health Administration12-10-2022 Miscellaneous Notes* Telephone Encounter - Susan Sanchez - 03/18/2022 10:00 AM EST Patient given results and verbalized understanding of instructions given. Susan Sanchez * Telephone Encounter - Susan Sanchez - 03/18/2022 9:59 AM EST ----- Message from Edith Dickson APRN.WILDLIFE CONSERVATION OFFICER sent at 03/18/2022 9:07 AM EST ----- Please advise patient he tested negative for COVID and Influenza. 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 [...] 08/14/2020 History: 65 year old male s/p [place] esophagectomy, Pyloromyotomy, Jejunostomy tube placement for [...] COLONOSCOPY W/BIOPSY SINGLE/MULTIPLE 02/22/2007 Diminutive polyp distal [id number] ECHO 01/08/2021 EGD 04/15/2020 HEART CATHETERIZATION 12/2018 [...] <AGE 11 Tonsillectomy TOT/SUB ESOPHAGECTOMY W/THORACOT 08/09/2020 [place] esophagectomy, jejunostomy tube placement ALLERGIES Environmental [...] (SALINE MIST) 0.65 % nasal spray^Use 1 [place] in the nose as needed for cold/allergysymptoms.^Disp: [...] worsened Dana Humphries APRN.MOHINI documented in this encounterVeterans Health Administration11-16-2022 History of Present illness Narrative* Mari Akhtar [...] abdomen: Dedicated CT abdomen pelvis dictated separately. Director College (topogram) images: No additional findings. CT A/P [...] chest CT performed will be reported separately. Director [employer] (topogram) images: No additional findings. EGD/EUS 04/26/2020: [...] carboplatin and paclitaxel. 05/24 through 06/23/2020. Underwent [place] esophagectomy on 08/09/2020. Pathology: 1. Esophagus [...] (L) 0.54 (L) 0.54 (L) 0.51 (L) [place]% % 7.9 11.2 8.0 7.3 Abs [place] <0.87 k/uL 0.40 0.44 0.32 0.35 Eosin% [...] months. -Follow-up with his PCP and his utilization specialist for other healthcare needs including management of [...] visit. Mari Akhtar APRN.CNP documented in this encounterVeterans Health Administration11-15-2022 Miscellaneous Notes* Telephone Encounter - Yaw Singh [...] to use. Refills can be sent to [facility] in [place] * Telephone Encounter - Yaw Singh MD [...] him and to where. documented in this encounterVeterans Health Administration11-14-2022 History of Present illness Narrative* Beatrice Zuleta, [...] 2022 TIME: 12:40 PM documented in this encounterVeterans Health Administration11-03-2022 Instructions* Patient Instructions* Yaw Singh MD - 02/09/2022 12:35 PM EDT Consider getting the shingrix vaccine for the prevention of shingles from a local pharmacy. customer services supervisor over the counter generic Lamisil or lotrimin cream and apply twice a day till redness resolved and then for one more week. check with oncology to see if any issues taking testosterone replacement if found to be low and if not let Dr. Singh know so test can be ordered. documented in this encounterVeterans Health Administration11-03-2022 History of Present illness Narrative* Yaw Singh MD - 02/09/2022 11:20 AM EDT Medicare Yearly Visit Medical B eligibilty date 03/09/19 Date of last exam 01/13/2021 PAST MEDICAL HISTORY PAST MEDICAL HISTORY Diagnosis Date Aortic valve stenosis 07/26/2015 Arthritis ASHD (arteriosclerotic heart disease) 2002 CABG 4 in '03; 3 stents LAD in '15 Asthma Atherosclerotic heart disease of [place] coronary artery with other forms of angina pectoris (HCC) Benign neoplasm of colon CAD (coronary artery disease) s/p CABG and multiple stents Calculus of kidney Carpal tunnel syndrome of right wrist Coronary artery disease involving [place] coronary artery without angina pectoris Seeing Dr. [...] 06/01/2020 COLONOSCOPY W/BX 02/22/2007 Diminutive polyp distal [id number] EGD 04/15/2020 HEART CATHETERIZATION 12/2018 with 2 [...] & x2 12/2018 TOT/SUB ESOPHAGECTOMY W/THORACOT 08/09/2020 [place] esophagectomy, jejunostomy tube placement ALLERGIES: Environmental [...] very much. List of current specialists seen: Pressurization Mechanic- Dr. Noland Oncologist- Dr. 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 Noland Essential hypertension, benign Malignant neoplasm of lower third of esophagus (HCC) 04/15/2020 MRSA (methicillin resistant Staphylococcus aureus) 12/01/2016 treated with course of Linezolid beginning 10/29/16 Nonrheumatic aortic valve disorder On tube feeding diet 08/14/2020 History: 65 year old male s/p [place] esophagectomy, Pyloromyotomy, Jejunostomy tube placement for [...] COLONOSCOPY W/BIOPSY SINGLE/MULTIPLE 02/22/2007 Diminutive polyp distal [id number] ECHO 01/08/2021 EGD 04/15/2020 HEART CATHETERIZATION 12/2018 [...] Lymph 1.00 - 4.00 k/uL 0.54 (L) [place]% % 8.0 Abs [place] <0.87 k/uL 0.32 Eosin% % 2.3 Abs [...] and regular exercise - Patient was counseled cvyq-ef-uryd by myself (the billing provider) for the [...] + TIBC 6. 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- ICD9: 414.01, ICD10: [...] which included preparing to see the patient, sbha-ab-qswp patient care, completing clinical documentation, performing a medically appropriate examination, counseling and educating the patient/family/caregiver and ordering medications, tests, or procedures. Yaw Singh MD documented in this encounterVeterans Health Administration08-25-2022 History of Present illness Narrative* Mari Solorzanoenter, COMPUTER CONSOLE OPERATOR.WILDLIFE CONSERVATION OFFICER - 12/01/2021 9:56 AM EDT Chief Complaint [...] abdomen: Dedicated CT abdomen pelvis dictated separately. Director [facility] (topogram) images: No additional findings. CT A/P [...] chest CT performed will be reported separately. Director [employer] (topogram) images: No additional findings. EGD/EUS 04/26/2020: [...] carboplatin and paclitaxel. 05/24 through 06/23/2020. Underwent [place] esophagectomy on 08/09/2020. Pathology: 1. Esophagus [...] months. -Follow-up with his PCP and his utilization specialist for other healthcare needs including management of [...] visit. Mari Akhtar APRN.MOHINI documented in this encounterVeterans Health Administration08-10-2022 Miscellaneous Notes* Telephone Encounter - Erin Du [...] anymore. Wanted to confirm. documented in this encounterVeterans Health Administration08-03-2022 History of Present illness Narrative* Queta Gleason APRN.WILDLIFE CONSERVATION OFFICER - 11/09/2021 1:03 PM EDT Part of this note was copied from previous note, all content has been individually reviewed, updated as necessary, and thoroughly reviewed. [facility] - OUTPATIENT THORACIC SURGERY CLINIC NOTE PT NAME: Jacob [place] [facility] NO: [id number] THORACIC SURGEON: Renetta Radford M.D. DATE OF [...] mucosa and intestinal metaplasia, negative for carcinoma. [facility] 08/13/2020 SYNOPTIC REPORT OF BERRY PATHOLOGIC FINDINGS [...] 66 year old year old male s/p [place] esophagectomy, Pyloromyotomy, Jejunostomy tubeplacement with Dr Renetta Radford on 08/09/2020. Pathology showed ypT3N0 adenocarcinoma distal esophagus. JARAD. PLAN: - Protonix BID - TUMS prior to bedtime if needed - Return for EGD in 8 months - Oncology follow up, Dr. Jenkins - Radiation/Oncology, Dr.Lee Queta Gleason APRN.WILDLIFE CONSERVATION OFFICER documented in this encounterVeterans Health Administration08-03-2022 Nurse Note* Flory Grant RN - 11/09/2021 [...] RN In Department: GASTROENTEROLOGY documented in this encounterVeterans Health Administration07-27-2022 Miscellaneous Notes* Telephone Encounter - Carrie Wang RN - 11/02/2021 1:04 PM EDT Attempted to reach the patient at the contact number that they provided [phone] (home) [phone] (work) . 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 Director [employer] (topogram) images: No additional findings. CT A/P [...] chest CT performed will be reported separately. Director [employer] (topogram) images: No additional findings. 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 He has no cardiac symptoms. Stable dyspnea [...] No jaundice or rash. No petechiae. NEUROLOGIC: hair cutter II-XII are grossly intact. No focal motor [...] Lymph 1.00 - 4.00 k/uL 0.54 (L) [place]% % 8.0 Abs [place] <0.87 k/uL 0.32 Eosin% % 2.3 Abs [...] months. -Follow-up with his PCP and his utilization specialist for other healthcare needs including management of [...] care. Richard Jenkins DO documented in this encounterVeterans Health Administration06-29-2022 History of Present illness Narrative* Richard Jenkins [...] abdomen: Dedicated CT abdomen pelvis dictated separately. Director [employer] (topogram) images: No additional findings. CT A/P [...] chest CT performed will be reported separately. Director [employer] (topogram) images: No additional findings. EGD/EUS 04/26/2020: [...] carboplatin and paclitaxel. 05/24 through 06/23/2020. Underwent [place] esophagectomy on 08/09/2020. Pathology: 1. Esophagus [...] to do more work outside. 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 No chest pain [...] No jaundice or rash. No petechiae. NEUROLOGIC: hair cutter II-XII are grossly intact. No focal motor [...] Lymph 1.00 - 4.00 k/uL 0.66 (L) [place]% % 7.9 Abs [place] <0.87 k/uL 0.40 Eosin% % 3.2 Abs [...] care. Richard Jenkins DO documented in this encounterVeterans Health Administration06-27-2022 History of Present illness Narrative* DINA Mcelroy [...] 2021 TIME: 11:56 AM documented in this encounterVeterans Health Administration06-03-2022 Miscellaneous Notes* Telephone Encounter - Isa Valdez LPN - 09/09/2021 8:14 AM EDT Appt. Notes edited T4 added. Isa Valdez LPN * Telephone Encounter - Richard Jenkins DO - 09/09/2021 7:56 AM EDT Please add T4 to his lab work going forward. Richard Jenkins DO documented in this encounterVeterans Health Administration06-01-2022 History of Present illness Narrative* Queta Gleason APRN.WILDLIFE CONSERVATION OFFICER - 09/07/2021 2:22 PM EDT Part of this note was copied from previous note, all content has been individually reviewed, updated as necessary, and thoroughly reviewed. [facility] - OUTPATIENT THORACIC SURGERY CLINIC NOTE PT NAME: Jacob Cuba [facility] NO: [id number] THORACIC SURGEON: Renetta Radford M.D. DATE OF [...] mucosa and intestinal metaplasia, negative for carcinoma. [facility] 08/13/2020 SYNOPTIC REPORT OF BERRY PATHOLOGIC FINDINGS [...] Dr.Lee Queta Gleason APRN.MOHINI documented in this encounter[facility]-2022 Nurse Note* Luly Almeida LPN - 09/07/2021 [...] Instructions REFERRAL (RECOMMENDATION): None documented in this encounterVeter[facility]05-18-2022 History of Present illness Narrative* Mari Akhtar APRN.WILDLIFE CONSERVATION OFFICER - 08/24/2021 8:04 AM EDT Chief Complaint [...] abdomen: Dedicated CT abdomen pelvis dictated separately. [facility] [employer] (topogram) images: No additional findings. CT A/P [...] chest CT performed will be reported separately. [facility] [employer] (topogram) images: No additional findings. EGD/EUS 04/26/2020: [...] visit. Mari Akhtar APRN.MOHINI documented in this encounterVeter[facility] Health Administration04-21-2022 History of Present illness Narrative* HUNTER Santo - 07/28/2021 3:01 PM EDT Social Work Problem Referral Note INFORMATION/REFERRAL : Jacob Landa 66 year old male was referred by [facility] Social Work for the following reason(s): [...] F/U APPOINTMENT: PRHUNTER Andersen documented in this encounterVeter[facility] Health [facility]04-21-2022 History of Present illness Narrative* Samaria Bueno RN - 07/28/2021 3:01 PM EDT Assessment unchanged from 07/27/[address] Jenkins documented in this encounterVeterans Health Administration04-21-2022 Miscellaneous Notes* Telephone Encounter - Krystina Quinones LPN - 07/28/2021 8:55 AM EDT Pt notified of same. Krystina Quinones LPN * Telephone Encounter - Usha Mcgovern PA-C - 07/28/2021 8:47 AM EDT Let patient know that his cholesterol and urine results were completely normal. Usha Mcgovern PA-C documented in this encounterVeterans Health Administration04-20-2022 History of Present illness Narrative* Richard Jenkins [...] abdomen: Dedicated CT abdomen pelvis dictated separately. Director [employer] (topogram) images: No additional findings. CT A/P [...] chest CT performed will be reported separately. [employer] (topogram) images: No additional findings. EGD/EUS 04/26/2020: [...] carboplatin and paclitaxel. 05/24 through 06/23/2020. Underwent [place] esophagectomy on 08/09/2020. Pathology: 1. Esophagus [...] No jaundice or rash. No petechiae. NEUROLOGIC: hair cutter II-XII are grossly intact. No focal motor [...] care. Richard Jenkins DO documented in this encounterVeter[facility] Health Administration05-08-2021 History of Past illness Narrative* Problem Noted [...] of this encounter (statuses as of 07/27/2021) [facility] of Past illness Narrative* Problem Noted [...] of this encounter (statuses as of 07/28/2021) [facility] of Past illness Narrative* Problem Noted Date Resolved Date On tube feeding diet 08/14/2020 01/13/2021 Overview: History: 65 year old male s/p [place] esophagectomy, Pyloromyotomy, Jejunostomy tube placement for [...] of this encounter (statuses as of 07/28/2021) [facility] of Past illness Narrative* Problem Noted [...] of this encounter (statuses as of 07/28/2021) [facility] of Past illness Narrative* Problem Noted Date Resolved Date On tube feeding diet 08/14/2020 01/13/2021 Overview: History: 65 year old male s/p [place] esophagectomy, Pyloromyotomy, Jejunostomy tube placement for [...] of this encounter (statuses as of 08/04/2021) [facility] of Past illness Narrative* Problem Noted [...] of this encounter (statuses as of 08/11/2021) [facility] of Past illness Narrative* Problem Noted Date Resolved Date On tube feeding diet 08/14/2020 01/13/2021 Overview: History: 65 year old male s/p [place] esophagectomy, Pyloromyotomy, Jejunostomy tube placement for [...] of this encounter (statuses as of 08/24/2021) [facility] of Past illness Narrative* Problem Noted [...] of this encounter (statuses as of 08/25/2021) [facility] of Past illness Narrative* Problem Noted [...] of this encounter (statuses as of 09/07/2021) [facility] of Past illness Narrative* Problem Noted [...] of this encounter (statuses as of 09/08/2021) [facility] of Past illness Narrative* Problem Noted Date Resolved Date On tube feeding diet 08/14/2020 01/13/2021 Overview: History: 65 year old male s/p [place] esophagectomy, Pyloromyotomy, Jejunostomy tube placement for [...] of this encounter (statuses as of 09/08/2021) [facility] of Past illness Narrative* Problem Noted Date Resolved Date On tube feeding diet 08/14/2020 01/13/2021 Overview: History: 65 year old male s/p [place] esophagectomy, Pyloromyotomy, Jejunostomy tube placement for [...] of this encounter (statuses as of 09/09/2021) [facility] of [facility] illness Narrative* Problem Noted Date Resolved Date On tube feeding diet 08/14/2020 01/13/2021 Overview: History: 65 year old male s/p [place] esophagectomy, Pyloromyotomy, Jejunostomy tube placement for [...] of this encounter (statuses as of 09/30/2021) [facility] of Past illness Narrative* Problem Noted Date Resolved Date On tube feeding diet 08/14/2020 01/13/2021 Overview: History: 65 year old male s/p [place] esophagectomy, Pyloromyotomy, Jejunostomy tube placement for [...] of this encounter (statuses as of 10/04/2021) [facility] illness Narrative* Problem Noted [...] of this encounter (statuses as of 10/05/2021) [facility] Past illness Narrative* Problem Noted [...] of this encounter (statuses as of 10/20/2021) [facility] Past illness Narrative* Problem Noted [...] of this encounter (statuses as of 11/02/2021) [facility] Past illness Narrative* Problem Noted Date Resolved Date On tube feeding diet 08/14/2020 01/13/2021 Overview: History: 65 year old male s/p [place] esophagectomy, Pyloromyotomy, Jejunostomy tube placement for [...] of this encounter (statuses as of 11/02/2021) [facility] Narrative* Problem Noted Date Resolved Date On tube feeding diet 08/14/2020 01/13/2021 Overview: History: 65 year old male s/p [place] esophagectomy, Pyloromyotomy, Jejunostomy tube placement for [...] of this encounter (statuses as of 11/09/2021) [facility] Narrative* Problem Noted [...] of this encounter (statuses as of 11/10/2021) [facility] illness Narrative* Problem Noted [...] of this encounter (statuses as of 11/16/2021) [facility] illness Narrative* Problem Noted Date Resolved Date On tube feeding diet 08/14/2020 01/13/2021 Overview: History: 65 year old male s/p [place] esophagectomy, Pyloromyotomy, Jejunostomy tube placement for [...] of this encounter (statuses as of 12/02/2021) [facility] Narrative* Problem Noted [...] of this encounter (statuses as of 02/09/2022) [facility] Narrative* Problem Noted [...] of this encounter (statuses as of 02/22/2022) [facility] Narrative* Problem Noted [...] of this encounter (statuses as of 02/24/2022) [facility] Narrative* Problem Noted [...] of this encounter (statuses as of 03/17/2022) [facility] Narrative* Problem Noted [...] of this encounter (statuses as of 03/18/2022) [facility] Narrative* Problem Noted [...] of this encounter (statuses as of 03/20/2022) [facility] Narrative* Problem Noted [...] of this encounter (statuses as of 04/21/2022) [facility] Narrative* Problem Noted Date Resolved Date On tube feeding diet 08/14/2020 01/13/2021 Overview: History: 65 year old male s/p [place] esophagectomy, Pyloromyotomy, Jejunostomy tube placement for [...] of this encounter (statuses as of 05/25/2022) [facility] Narrative* Problem Noted Date Resolved Date On tube feeding diet 08/14/2020 01/13/2021 Overview: History: 65 year old male s/p [place] esophagectomy, Pyloromyotomy, Jejunostomy tube placement for [...] of this encounter (statuses as of 05/29/2022) [facility] Narrative* Problem Noted Date Resolved Date On tube feeding diet 08/14/2020 01/13/2021 Overview: History: 65 year old male s/p [place] esophagectomy, Pyloromyotomy, Jejunostomy tube placement for [...] of this encounter (statuses as of 06/09/2022) [facility] Narrative* Problem Noted [...] of this encounter (statuses as of 06/16/2022) [facility] Narrative* Problem Noted Date Resolved Date On tube feeding diet 08/14/2020 01/13/2021 Overview: History: 65 year old male s/p [place] esophagectomy, Pyloromyotomy, Jejunostomy tube placement for [...] of this encounter (statuses as of 06/26/2022) [facility] Narrative* Problem Noted Date Resolved Date On tube feeding diet 08/14/2020 01/13/2021 Overview: History: 65 year old male s/p [place] esophagectomy, Pyloromyotomy, Jejunostomy tube placement for [...] of this encounter (statuses as of 08/02/2022) [facility] Narrative* Problem Noted Date Resolved Date On tube feeding diet 08/14/2020 01/13/2021 Overview: History: 65 year old male s/p [place] esophagectomy, Pyloromyotomy, Jejunostomy tube placement for [...] of this encounter (statuses as of 08/03/2022) [facility] Narrative* Problem Noted [...] of this encounter (statuses as of 08/09/2022) [facility] Narrative* Problem Noted [...] of this encounter (statuses as of 08/22/2022) [facility] Narrative* Problem Noted [...] of this encounter (statuses as of 11/23/2022) [facility] Narrative* Problem Noted [...] of this encounter (statuses as of 02/11/2023) [facility] Narrative* Problem Noted Date Diagnosed Date Resolved Date On tube feeding diet 08/14/2020 021 Overview: History: 65 year old male s/p [place] esophagectomy, Pyloromyotomy, Jejunostomy tube placement for [...] of this encounter (statuses as of 02/11/2023) [facility] Narrative* Problem Noted [...] of this encounter (statuses as of 02/11/2023) [facility] Narrative* Problem Noted Date Diagnosed Date Resolved Date On tube feeding diet 08/14/2020 021 Overview: History: 65 year old male s/p [place] esophagectomy, Pyloromyotomy, Jejunostomy tube placement for [...] of this encounter (statuses as of 02/11/2023) [facility] Narrative* Problem Noted Date Diagnosed Date Resolved Date On tube feeding diet 08/14/2020 021 Overview: History: 65 year old male s/p [place] esophagectomy, Pyloromyotomy, Jejunostomy tube placement for [...] of this encounter (statuses as of 02/13/2023) [facility] Narrative* Problem Noted [...] of this encounter (statuses as of 02/14/2023) [facility] Narrative* Problem Noted [...] of this encounter (statuses as of 02/14/2023) [facility] Narrative* Problem Noted [...] of this encounter (statuses as of 02/20/2023) [facility] Narrative* Problem Noted [...] of this encounter (statuses as of 02/21/2023) [facility] Narrative* Problem Noted Date Diagnosed Date Resolved Date On tube feeding diet 08/14/2020 021 Overview: History: 65 year old male s/p [place] esophagectomy, Pyloromyotomy, Jejunostomy tube placement for [...] of this encounter (statuses as of 02/28/2023) [facility] Narrative* Problem Noted [...] of this encounter (statuses as of 03/30/2023) [facility] Narrative* Problem Noted Date Diagnosed Date Resolved Date On tube feeding diet 08/14/2020 021 Overview: History: 65 year old male s/p [place] esophagectomy, Pyloromyotomy, Jejunostomy tube placement for [...] of this encounter (statuses as of 05/28/2023) [facility] Narrative* Problem Noted Date Diagnosed Date Resolved Date On tube feeding diet 08/14/2020 021 Overview: History: 65 year old male s/p [place] esophagectomy, Pyloromyotomy, Jejunostomy tube placement for esophageal [...] of this encounter (statuses as of 05/29/2023) [facility] Narrative* Problem Noted [...] of this encounter (statuses as of 06/06/2023) [facility] Narrative* Problem Noted Date Diagnosed Date Resolved Date On tube feeding diet 08/14/2020 021 Overview: History: 65 year old male s/p [place] esophagectomy, Pyloromyotomy, Jejunostomy tube placement for [...] of this encounter (statuses as of 06/18/2023) [facility] Narrative* Problem Noted Date Diagnosed Date Resolved Date On tube feeding diet 08/14/2020 021 Overview: History: 65 year old male s/p [place] esophagectomy, Pyloromyotomy, Jejunostomy tube placement for [...] of this encounter (statuses as of 06/19/2023) [facility] Narrative* Problem Noted Date Diagnosed Date Resolved Date On tube feeding diet 08/14/2020 021 Overview: History: 65 year old male s/p [place] esophagectomy, Pyloromyotomy, Jejunostomy tube placement for [...] of this encounter (statuses as of 06/21/2023) [facility] Narrative* Problem Noted Date Diagnosed Date Resolved Date On tube feeding diet 08/14/2020 021 Overview: History: 65 year old male s/p [place] esophagectomy, Pyloromyotomy, Jejunostomy tube placement for [...] of this encounter (statuses as of 06/29/2023) [facility] Narrative* Problem Noted [...] of this encounter (statuses as of 06/29/2023) [facility] Narrative* Problem Noted [...] of this encounter (statuses as of 06/29/2023) [facility] Narrative* Problem Noted Date Diagnosed Date Resolved Date On tube feeding diet 08/14/2020 021 Overview: History: 65 year old male s/p [place] esophagectomy, Pyloromyotomy, Jejunostomy tube placement for [...] of this encounter (statuses as of 07/02/2023) [facility] Narrative* Problem Noted [...] of this encounter (statuses as of 07/13/2023) [facility] Narrative* Problem Noted [...] of this encounter (statuses as of 07/20/2023) [facility] NoteHNO ID: [id number] Author: Renetta Radford Service: ? Author Type: [...] a cardiac risk assessment from his primary utilization specialist and will then plan to see him back following completion of therapy for restaging and surgical planning. ? Plan: 1) Cards clearance from primary utilization specialist 2) RTC following completion of induction therapy [...] visit with restaging testing on July 09 [facility] or July [address] [place] [address] Chest/Abd/Pelvis Anticipated OR Date: 08/09/2020 MAIN [facility] 08/06/2020 MAIN COVID 08/06/2020 MAIN ? Alisa Estrada RN ? Stress Test 06/25/2020 Conclusion: Normal exercise myocardial perfusion stress test at a moderate workload with no evidence of ischemia. Good functional capacity. No angina noted. ? OPD note 06/25/2020 Hem/Onc ? ?[facility]04-07-2021 NoteHNO ID: [id number] Author: Barry Shaw (Tech) Service: Radiology Author Type: Boring Machine Operator Helper Type: Progress Notes Filed: 07/14/2020 12:10 PM [...] BY: Barry Shaw July 14, 2020 12:10 PM[facility]21 NoteHNO ID: [id number] Author: Jordana Jeffries RN Service: Radiology Author [...] Landa DATE: July 14, 2020 TIME: 11:09 [facility]11-25-2019 Evaluation note* Diagnosis Onset Date Resolution Status Adenocarcinoma of esophagus chronic Atherosclerosis of coronary artery of 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 chronic Hyperlipidemia chronic History of aortic valve replacement March 03 9 resolved [facility] Work Phone: Consult note Author Tawny Covington [facility] Note Date/Time June 30, 2024 10: 16am [facility] Medical Records Department [address] [place] [address] Anesthesia Postop Eval II 06/30/24 1015 MR#: [id number] Acct: [id number] Name: JACOB LANDA Rep #:[id number] : [id number] 69 From: Tawny Covington PCP: Dr. Yaw Singh MD Status:REG SDC Y Race: C Location: [facility]1 Anesthesia Postop Eval I Sum Postop Eval Completion status Anesthesia document: Postop Eval 1 completed: Yes Anesthesia Postop Eval I Summary Anesthesia Postop Eval I Summary: Anesthesia Postop Eval I: Assessment Summary Airway patent Yes 06/30/24 09:34 [email or web address] Spontaneous unlabored Yes 06/30/24 09:34 [email or web address] [email or web address] respirations Mental status Awake,Calm 06/30/24 09:34 [email or web address] [email or web address] nausea No 06/30/24 09:34 [email or web address] Vomiting No 06/30/24 09:34 [email or web address] Anesthesia Postop Eval I: Fluid Summary Crystalloid volume administer 250 06/30/24 09:34 [email or web address] (ml) Colloids volume administered ( ml) Blood Product volume administered (ml) Total IV fluid infused 250 06/30/24 09:34 [email or web address] Anesthesia Postop Eval I: Summary Notes Anesthesia Complication Yes 06/30/24 09:34 [email or web address] Anesthesia Complication right nares with 06/30/24 09:34 [email or web address] Comment: epistaxis from npa Post-operative progress note Anesthesia: Postop Eval II Evaluation Mental status: Awake Pain Level: 2 nausea: No Vomiting: No 06/30/24 1016 <Electronically signed by Tawny dickson> Date _ Tawny Santos Signature: Date CC: ~ Signed [facility] Work Phone: Evaluation note* Diagnosis Aortic valve stenosis, etiology of cardiac valve disease unspecified documented in this encounter [facility] Work Phone: Evaluation note* Diagnosis Severe aortic stenosis Aortic valve disorders 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 Essential hypertension Unspecified [...] unspecified Other hypervolemia documented in this encounter [facility] note* Diagnosis Esophageal adenocarcinoma (HCC)- Primary Malignant neoplasm of esophagus, unspecified site Malignant neoplasm of lower third of esophagus (HCC) Malignant neoplasm of lower third of esophagus documented in this encounter [facility] note* Diagnosis Malignant neoplasm of lower third of esophagus (HCC)- Primary Malignant neoplasm of lower third of esophagus documented in this encounter [facility] note* Diagnosis Esophageal adenocarcinoma (HCC)- Primary Malignant neoplasm of esophagus, unspecified site Malignant neoplasm of lower third of esophagus (HCC) Malignant neoplasm of lower third of esophagus documented in this encounter [facility] note* Diagnosis Esophageal adenocarcinoma (HCC)- Primary Malignant neoplasm of esophagus, unspecified site documented in this encounter [facility] note* Diagnosis Esophageal adenocarcinoma (HCC)- Primary Malignant neoplasm of esophagus, unspecified site Malignant neoplasm of lower third of esophagus (HCC) Malignant neoplasm of lower third of esophagus documented in this encounter [facility] note* Diagnosis Malignant neoplasm of lower third of esophagus (HCC)- Primary Malignant neoplasm of lower third of esophagus Duodenal ulcer Duodenal ulcer, unspecified as acute or chronic, without hemorrhage, perforation, or obstruction documented in this encounter [facility] note* Diagnosis Malignant neoplasm of lower third of esophagus (HCC) Malignant neoplasm of lower third of esophagus documented in this encounter [facility] note* Diagnosis Esophageal adenocarcinoma (HCC)- Primary Malignant neoplasm of esophagus, unspecified site Malignant neoplasm of lower third of esophagus (HCC) Malignant neoplasm of lower third of esophagus documented in this encounter [facility] note* Diagnosis Esophageal adenocarcinoma (HCC)- Primary Malignant neoplasm of esophagus, unspecified site Acquired hypothyroidism Unspecified hypothyroidism Iron deficiency anemia due to chronic blood loss Iron deficiency anemia secondary to blood loss (chronic) documented in this encounter [facility] note* Diagnosis Malignant neoplasm of lower third of esophagus (HCC) Malignant neoplasm of lower third of esophagus Pleural effusion Unspecified pleural effusion documented in this encounter [facility] note* Diagnosis Malignant neoplasm of lower third of esophagus (HCC)- Primary Malignant neoplasm of lower third of esophagus Pleural effusion Unspecified pleural effusion [facility] Esophageal adenocarcinoma (HCC)- Primary Malignant neoplasm of esophagus, unspecified site Malignant neoplasm of lower third of esophagus (HCC) Malignant neoplasm of lower third of esophagus [facility] Diagnosis Malignant neoplasm of lower third of esophagus (HCC)- Primary Malignant neoplasm of lower third of esophagus [facility] Diagnosis Malignant neoplasm of lower third of esophagus (HCC)- Primary Malignant neoplasm of lower third of esophagus [facility] Diagnosis Malignant neoplasm of lower third of esophagus (HCC) Malignant neoplasm of lower third of esophagus [facility] Diagnosis Malignant neoplasm of lower third of esophagus (HCC)- Primary Malignant neoplasm of lower third of esophagus [facility] Diagnosis Medicare annual wellness visit, subsequent- Primary Routine general medical examination at a health care facility Essential hypertension, benign Mixed hyperlipidemia Gastroesophageal reflux disease, unspecified whether esophagitis present Iron deficiency anemia due to chronic blood loss Iron deficiency anemia secondary to blood loss (chronic) 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 Aortic valve stenosis, [...] single bacterial disease [facility] Diagnosis Malignant neoplasm of lower third of esophagus (HCC)- Primary Malignant neoplasm of lower third of esophagus [facility] Diagnosis Sinus congestion- Primary Other diseases of nasal cavity and sinuses Acute cough [facility] Diagnosis Malignant neoplasm of lower third of esophagus (HCC)- Primary Malignant neoplasm of lower third of esophagus [facility] Diagnosis Rib injury- Primary Sprain of ribs [facility] Diagnosis Malignant neoplasm of lower third of esophagus (HCC)- Primary Malignant neoplasm of lower third of esophagus [facility] Diagnosis Esophageal adenocarcinoma (HCC)- Primary Malignant neoplasm of esophagus, unspecified site Malignant neoplasm of lower third of esophagus (HCC) Malignant neoplasm of lower third of esophagus [facility] Diagnosis Essential hypertension, benign- Primary Mixed hyperlipidemia Gastroesophageal reflux disease, unspecified whether esophagitis present Esophageal adenocarcinoma (HCC) Malignant neoplasm of esophagus, unspecified site 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 S/P CABG x 4 Postsurgical aortocoronary bypass status Malignant neoplasm of lower third of esophagus (HCC) Malignant neoplasm of lower third of esophagus Iron deficiency anemia due to chronic blood loss Iron deficiency anemia secondary to blood loss (chronic) Benign prostatic hyperplasia, unspecified whether lower urinary tract symptoms present [facility] Diagnosis Malignant neoplasm of lower third of esophagus (HCC)- Primary Malignant neoplasm of lower third of esophagus documented in this encounter [facility] noteNo assessment information [facility]WC[facility] Work Phone: Evaluation note* Diagnosis Malignant neoplasm of lower third of esophagus (HCC) Malignant neoplasm of lower third of esophagus [facility] Diagnosis Malignant neoplasm of lower third of esophagus (HCC) Malignant neoplasm of lower third of esophagus [facility] Diagnosis Malignant neoplasm of lower third of esophagus (HCC)- Primary Malignant neoplasm of lower third of esophagus [facility] Diagnosis Malignant neoplasm of lower third of esophagus (HCC) Malignant neoplasm of lower third of esophagus [facility]* Diagnosis APPOINTMENT CANCELLED- Primary [facility] Diagnosis Esophageal adenocarcinoma (HCC)- Primary Malignant neoplasm of esophagus, unspecified site Compression fracture of thoracic vertebra, unspecified thoracic vertebral level, initial encounter (HCC) [facility] Diagnosis Rhinosinusitis- Primary Unspecified sinusitis (chronic) [facility] Diagnosis Malignant neoplasm of lower third of esophagus (HCC)- Primary Malignant neoplasm of lower third of esophagus [facility] Diagnosis Malignant neoplasm of esophagus, unspecified location (HCC)- Primary [facility] Diagnosis Malignant neoplasm of esophagus, unspecified location (HCC) Pre-op exam Preoperative examination, unspecified Malignant neoplasm of lower third of esophagus (HCC) Malignant neoplasm of lower third of esophagus Essential hypertension, benign Mixed hyperlipidemia 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 Gastroesophageal reflux disease, [...] third of esophagus Coronary artery disease involving [place] coronary artery without angina pectoris Pre-op exam Preoperative examination, unspecified [facility] Diagnosis Closed wedge compression fracture of T10 vertebra with routine healing, subsequent encounter- Primary [facility] Diagnosis RUQ pain- Primary Abdominal pain, right upper quadrant Nausea Nausea alone Chronic midline low back pain without sciatica Intertrigo Other specified erythematous condition [facility] Diagnosis RUQ pain Abdominal pain, right upper quadrant Nausea Nausea alone documented [facility] Diagnosis RUQ pain Abdominal pain, right upper quadrant Nausea Nausea alone [facility] Diagnosis Strain of thoracic paraspinal muscles excluding T1 and T2 levels, sequela- Primary Closed wedge compression fracture of T10 vertebra with routine healing, subsequent encounter Malignant neoplasm of lower third of esophagus (HCC) Malignant neoplasm of lower third of esophagus Kyphosis (acquired) (postural) documented [facility] Diagnosis Malignant neoplasm of lower third of esophagus (HCC)- Primary Malignant neoplasm of lower third of esophagus documented [facility] Diagnosis Closed wedge compression fracture of T10 vertebra with routine healing, subsequent encounter Malignant neoplasm of lower third of esophagus (HCC) Malignant neoplasm of lower third of esophagus Strain of thoracic paraspinal muscles excluding T1 and T2 levels, sequela Kyphosis (acquired) (postural) documented [facility] Diagnosis Malignant neoplasm of lower third [...] and respiratory abnormality 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 Essential hypertension, benign [...] whether esophagitis present 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 Ascending aorta dilation [...] of other medications [facility] Diagnosis Mixed hyperlipidemia- Primary 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 documented [facility] Diagnosis Pleural effusion- Primary Unspecified pleural effusion Chronic heart failure with preserved ejection fraction (HCC) documented [facility] Diagnosis Malignant neoplasm of esophagus, unspecified location (HCC) Pre-op exam Preoperative examination, unspecified Malignant neoplasm of lower third of esophagus (HCC) Malignant neoplasm of lower third of esophagus Essential hypertension, benign Mixed hyperlipidemia 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 Gastroesophageal reflux disease, [...] third of esophagus Coronary artery disease involving [place] coronary artery without angina pectoris Pre-op exam Preoperative examination, unspecified Pleural effusion Unspecified pleural effusion TRIPATHI (dyspnea on exertion) Other dyspnea and respiratory abnormality documented [facility] Diagnosis Malignant neoplasm of esophagus, unspecified location (HCC) Pre-op exam Preoperative examination, unspecified Malignant neoplasm of lower third of esophagus (HCC) Malignant neoplasm of lower third of esophagus Essential hypertension, benign Mixed hyperlipidemia 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 Gastroesophageal reflux disease, [...] third of esophagus Coronary artery disease involving [place] coronary artery without angina pectoris Excessive bleeding- Primary documented [facility]* Diagnosis Rib injury Sprain of ribs Malignant neoplasm of esophagus, unspecified location (HCC) Pre-op exam Preoperative examination, unspecified Malignant neoplasm of lower third of esophagus (HCC) Malignant neoplasm of lower third of esophagus Essential hypertension, benign Mixed hyperlipidemia 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 Gastroesophageal reflux disease, unspecified whether esophagitis present Aortic valve stenosis, etiology of cardiac valve disease unspecified documented [facility] Diagnosis Malignant neoplasm of esophagus, unspecified location (HCC) Pre-op exam Preoperative examination, unspecified Malignant neoplasm of lower third of esophagus (HCC) Malignant neoplasm of lower third of esophagus Essential hypertension, benign Mixed hyperlipidemia 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 Gastroesophageal reflux disease, [...] third of esophagus Coronary artery disease involving [place] coronary artery without angina pectoris Pressure injury of buttock, stage 2, unspecified laterality (HCC)- Primary CKD (chronic kidney disease) stage 4, GFR 15-29 ml/min (HCC) Chronic kidney disease, Stage IV (severe) 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 documented [facility] Diagnosis Malignant neoplasm of esophagus, unspecified location (HCC) Pre-op exam Preoperative examination, unspecified Malignant neoplasm of lower third of esophagus (HCC) Malignant neoplasm of lower third of esophagus Essential hypertension, benign Mixed hyperlipidemia 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 Gastroesophageal reflux disease, [...] third of esophagus Coronary artery disease involving [place] coronary artery without angina pectoris Heart failure, unspecified HF chronicity, unspecified heart failure type (HCC)- Primary documented [facility] Diagnosis Malignant neoplasm of esophagus, unspecified location (HCC) Pre-op exam Preoperative examination, unspecified Malignant neoplasm of lower third of esophagus (HCC) Malignant neoplasm of lower third of esophagus Essential hypertension, benign Mixed hyperlipidemia 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 Gastroesophageal reflux disease, [...] third of esophagus Coronary artery disease involving [place] coronary artery without angina pectoris Anemia, unspecified type- Primary documented [facility] Diagnosis Malignant neoplasm of esophagus, unspecified location (HCC) Pre-op exam Preoperative examination, unspecified Malignant neoplasm of lower third of esophagus (HCC) Malignant neoplasm of lower third of esophagus Essential hypertension, benign Mixed hyperlipidemia 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 Gastroesophageal reflux disease, [...] third of esophagus Coronary artery disease involving [place] coronary artery without angina pectoris Malignant neoplasm of lower third of esophagus (HCC)- Primary Malignant neoplasm of lower third of esophagus Early satiety Nausea Nausea alone Anemia, unspecified type [facility] Diagnosis Malignant neoplasm of esophagus, unspecified location (HCC) Pre-op exam Preoperative examination, unspecified Malignant neoplasm of lower third of esophagus (HCC) Malignant neoplasm of lower third of esophagus Essential hypertension, benign Mixed hyperlipidemia 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 Gastroesophageal reflux disease, [...] third of esophagus Coronary artery disease involving [place] coronary artery without angina pectoris Healing pressure injury, stage 1- Primary documented [facility] Diagnosis Malignant neoplasm of esophagus, unspecified location (HCC) Pre-op exam Preoperative examination, unspecified Malignant neoplasm of lower third of esophagus (HCC) Malignant neoplasm of lower third of esophagus Essential hypertension, benign Mixed hyperlipidemia 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 Gastroesophageal reflux disease, [...] third of esophagus Coronary artery disease involving [place] 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 Early satiety Nausea Nausea alone documented [facility] Diagnosis Malignant neoplasm of esophagus, unspecified location (HCC) Pre-op exam Preoperative examination, unspecified Malignant neoplasm of lower third of esophagus (HCC) Malignant neoplasm of lower third of esophagus Essential hypertension, benign Mixed hyperlipidemia 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 Gastroesophageal reflux disease, [...] third of esophagus Coronary artery disease involving [place] 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 Early satiety Nausea Nausea alone documented [facility] Diagnosis Malignant neoplasm of esophagus, unspecified location (HCC) Pre-op exam Preoperative examination, unspecified Malignant neoplasm of lower third of esophagus (HCC) Malignant neoplasm of lower third of esophagus Essential hypertension, benign Mixed hyperlipidemia 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 Gastroesophageal reflux disease, [...] third of esophagus Coronary artery disease involving [place] coronary artery without angina pectoris Pleural effusion- Primary Unspecified pleural effusion Lung nodules Other nonspecific abnormal finding of lung field Seasonal allergies Allergic rhinitis, cause unspecified Oral thrush Candidiasis of mouth [facility] Diagnosis Malignant neoplasm of esophagus, unspecified location (HCC) Pre-op exam Preoperative examination, unspecified Malignant neoplasm of lower third of esophagus (HCC) Malignant neoplasm of lower third of esophagus Essential hypertension, benign Mixed hyperlipidemia 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 Gastroesophageal reflux disease, [...] third of esophagus Coronary artery disease involving [place] coronary artery without angina pectoris Pleural effusion Unspecified pleural effusion documented [facility] Diagnosis Malignant neoplasm of esophagus, unspecified location (HCC) Pre-op exam Preoperative examination, unspecified Malignant neoplasm of lower third of esophagus (HCC) Malignant neoplasm of lower third of esophagus Essential hypertension, benign Mixed hyperlipidemia 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 Gastroesophageal reflux disease, [...] third of esophagus Coronary artery disease involving [place] coronary artery without angina pectoris Pleural effusion Unspecified pleural effusion documented [facility] Diagnosis Malignant neoplasm of esophagus, unspecified location (HCC) Pre-op exam Preoperative examination, unspecified Malignant neoplasm of lower third of esophagus (HCC) Malignant neoplasm of lower third of esophagus Essential hypertension, benign Mixed hyperlipidemia 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 Gastroesophageal reflux disease, [...] third of esophagus Coronary artery disease involving [place] coronary artery without angina pectoris Closed intracapsular fracture of left femur with routine healing- Primary Aftercare for healing traumatic fracture of hip [facility] Diagnosis Malignant neoplasm of esophagus, unspecified location (HCC) Pre-op exam Preoperative examination, unspecified Malignant neoplasm of lower third of esophagus (HCC) Malignant neoplasm of lower third of esophagus Essential hypertension, benign Mixed hyperlipidemia 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 Gastroesophageal reflux disease, [...] third of esophagus Coronary artery disease involving [place] coronary artery without angina pectoris Medicare annual wellness visit, subsequent- Primary Routine general medical examination at a health care facility Essential hypertension, benign Mixed hyperlipidemia 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 Aortic valve stenosis, [...] of other medications documented in this encounter [facility] note* Diagnosis Malignant neoplasm of esophagus, unspecified location (HCC) Pre-op exam Preoperative examination, unspecified Malignant neoplasm of lower third of esophagus (HCC) Malignant neoplasm of lower third of esophagus Essential hypertension, benign Mixed hyperlipidemia 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 Gastroesophageal reflux disease, [...] third of esophagus Coronary artery disease involving [place] 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 [facility] Diagnosis Malignant neoplasm of esophagus, unspecified location (HCC) Pre-op exam Preoperative examination, unspecified Malignant neoplasm of lower third of esophagus (HCC) Malignant neoplasm of lower third of esophagus Essential hypertension, benign Mixed hyperlipidemia 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 Gastroesophageal reflux disease, unspecified whether esophagitis present Aortic valve stenosis, etiology of cardiac valve disease unspecified Essential hypertension, benign S/P CABG x 4 Postsurgical aortocoronary bypass status Mixed hyperlipidemia Asthma Unspecified asthma GERD (gastroesophageal reflux disease) Esophageal reflux 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 artery disease involving [place] coronary artery without angina pectoris Malignant neoplasm of lower third of esophagus (HCC)- Primary Malignant neoplasm of lower third of esophagus Closed wedge compression fracture of T10 vertebra with delayed healing, subsequent encounter documented in this encounter [facility] note* Diagnosis Malignant neoplasm of esophagus, unspecified location (HCC) Pre-op exam Preoperative examination, unspecified Malignant neoplasm of lower third of esophagus (HCC) Malignant neoplasm of lower third of esophagus Essential hypertension, benign Mixed hyperlipidemia 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 Gastroesophageal reflux disease, unspecified whether esophagitis present Aortic valve stenosis, etiology of cardiac valve disease unspecified Essential hypertension, benign S/P CABG x 4 Postsurgical aortocoronary bypass status Mixed hyperlipidemia Asthma Unspecified asthma GERD (gastroesophageal reflux disease) Esophageal reflux 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 artery disease involving [place] coronary artery without angina pectoris Secondary infection of skin- Primary Other specified local infections of skin and subcutaneous tissue Dog scratch Other and unspecified superficial injury of other, multiple, and unspecified sites, without mention of infection Need for tetanus booster Need for prophylactic vaccination with tetanus toxoid alone [facility] Diagnosis Malignant neoplasm of esophagus, unspecified location (HCC) Pre-op exam Preoperative examination, unspecified Malignant neoplasm of lower third of esophagus (HCC) Malignant neoplasm of lower third of esophagus Essential hypertension, benign Mixed hyperlipidemia 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 Gastroesophageal reflux disease, unspecified whether esophagitis present Aortic valve stenosis, etiology of cardiac valve disease unspecified Essential hypertension, benign S/P CABG x 4 Postsurgical aortocoronary bypass status Mixed hyperlipidemia Asthma Unspecified asthma GERD (gastroesophageal reflux disease) Esophageal reflux 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 artery disease involving [place] 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 Closed wedge compression fracture of T10 vertebra with delayed healing, subsequent encounter [facility] Diagnosis Malignant neoplasm of esophagus, unspecified location (HCC) Pre-op exam Preoperative examination, unspecified Malignant neoplasm of lower third of esophagus (HCC) Malignant neoplasm of lower third of esophagus Essential hypertension, benign Mixed hyperlipidemia 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 Gastroesophageal reflux disease, unspecified whether esophagitis present Aortic valve stenosis, etiology of cardiac valve disease unspecified Essential hypertension, benign S/P CABG x 4 Postsurgical aortocoronary bypass status Mixed hyperlipidemia Asthma Unspecified asthma GERD (gastroesophageal reflux disease) Esophageal reflux 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 artery disease involving [place] coronary artery without angina pectoris ESRD on dialysis (HCC)- Primary End stage renal disease Pre-transplant evaluation for ESRD (end stage renal disease) Other specified pre-operative examination [facility] Diagnosis Malignant neoplasm of esophagus, unspecified location (HCC) Pre-op exam Preoperative examination, unspecified Malignant neoplasm of lower third of esophagus (HCC) Malignant neoplasm of lower third of esophagus Essential hypertension, benign Mixed hyperlipidemia 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 Gastroesophageal reflux disease, unspecified whether esophagitis present Aortic valve stenosis, etiology of cardiac valve disease unspecified Essential hypertension, benign S/P CABG x 4 Postsurgical aortocoronary bypass status Mixed hyperlipidemia Asthma Unspecified asthma GERD (gastroesophageal reflux disease) Esophageal reflux 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 artery disease involving [place] coronary artery without angina pectoris Pre-transplant evaluation for kidney transplant- Primary Other specified pre-operative examination [facility] Diagnosis Malignant neoplasm of esophagus, unspecified location (HCC) Pre-op exam Preoperative examination, unspecified Malignant neoplasm of lower third of esophagus (HCC) Malignant neoplasm of lower third of esophagus Essential hypertension, benign Mixed hyperlipidemia 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 Gastroesophageal reflux disease, unspecified whether esophagitis present Aortic valve stenosis, etiology of cardiac valve disease unspecified Essential hypertension, benign S/P CABG x 4 Postsurgical aortocoronary bypass status Mixed hyperlipidemia Asthma Unspecified asthma GERD (gastroesophageal reflux disease) Esophageal reflux 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 artery disease involving [place] coronary artery without angina pectoris Dietary counseling and surveillance- Primary Dietary surveillance and counseling Awaiting organ transplant Awaiting organ transplant status documented in this encounter [facility] note* Diagnosis Malignant neoplasm of esophagus, unspecified location (HCC) Pre-op exam Preoperative examination, unspecified Malignant neoplasm of lower third of esophagus (HCC) Malignant neoplasm of lower third of esophagus Essential hypertension, benign Mixed hyperlipidemia 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 Gastroesophageal reflux disease, unspecified whether esophagitis present Aortic valve stenosis, etiology of cardiac valve disease unspecified Essential hypertension, benign S/P CABG x 4 Postsurgical aortocoronary bypass status Mixed hyperlipidemia Asthma Unspecified asthma GERD (gastroesophageal reflux disease) Esophageal reflux 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 artery disease involving [place] coronary artery without angina pectoris Pre-transplant evaluation for end stage renal disease- Primary Other specified pre-operative examination documented in this encounter [facility] note* Diagnosis Malignant neoplasm of esophagus, unspecified location (HCC) Pre-op exam Preoperative examination, unspecified Malignant neoplasm of lower third of esophagus (HCC) Malignant neoplasm of lower third of esophagus Essential hypertension, benign Mixed hyperlipidemia 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 Gastroesophageal reflux disease, unspecified whether esophagitis present Aortic valve stenosis, etiology of cardiac valve disease unspecified Essential hypertension, benign S/P CABG x 4 Postsurgical aortocoronary bypass status Mixed hyperlipidemia Asthma Unspecified asthma GERD (gastroesophageal reflux disease) Esophageal reflux 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 artery disease involving [place] coronary artery without angina pectoris Pre-transplant evaluation for kidney transplant- Primary Other specified pre-operative examination [facility] Diagnosis Malignant neoplasm of esophagus, unspecified location (HCC) Pre-op exam Preoperative examination, unspecified Malignant neoplasm of lower third of esophagus (HCC) Malignant neoplasm of lower third of esophagus Essential hypertension, benign Mixed hyperlipidemia 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 Gastroesophageal reflux disease, unspecified whether esophagitis present Aortic valve stenosis, etiology of cardiac valve disease unspecified Essential hypertension, benign S/P CABG x 4 Postsurgical aortocoronary bypass status Mixed hyperlipidemia Asthma Unspecified asthma GERD (gastroesophageal reflux disease) Esophageal reflux 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 artery disease involving [place] coronary artery without angina pectoris Pre-transplant evaluation for kidney transplant- Primary Other specified pre-operative examination Renal failure, unspecified chronicity Preoperative examination Preoperative examination, unspecified Special screening for malignant neoplasm of prostate Encounter for screening for human immunodeficiency virus (HIV) Special screening examination for other specified viral diseases Other complications of anesthesia, initial encounter [facility] Diagnosis Malignant neoplasm of esophagus, unspecified location (HCC) Pre-op exam Preoperative examination, unspecified Malignant neoplasm of lower third of esophagus (HCC) Malignant neoplasm of lower third of esophagus Essential hypertension, benign Mixed hyperlipidemia 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 Gastroesophageal reflux disease, unspecified whether esophagitis present Aortic valve stenosis, etiology of cardiac valve disease unspecified Essential hypertension, benign S/P CABG x 4 Postsurgical aortocoronary bypass status Mixed hyperlipidemia Asthma Unspecified asthma GERD (gastroesophageal reflux disease) Esophageal reflux 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 artery disease involving [place] coronary artery without angina pectoris Pre-transplant evaluation for kidney transplant- Primary Other specified pre-operative examination [facility] Diagnosis Malignant neoplasm of esophagus, unspecified location (HCC) Pre-op exam Preoperative examination, unspecified Malignant neoplasm of lower third of esophagus (HCC) Malignant neoplasm of lower third of esophagus Essential hypertension, benign Mixed hyperlipidemia 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 Gastroesophageal reflux disease, unspecified whether esophagitis present Aortic valve stenosis, etiology of cardiac valve disease unspecified Essential hypertension, benign S/P CABG x 4 Postsurgical aortocoronary bypass status Mixed hyperlipidemia Asthma Unspecified asthma GERD (gastroesophageal reflux disease) Esophageal reflux 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 artery disease involving [place] coronary artery without angina pectoris Pre-transplant evaluation for kidney transplant- Primary Other specified pre-operative examination documented in this encounter [facility] note* Diagnosis Malignant neoplasm of esophagus, unspecified location (HCC) Pre-op exam Preoperative examination, unspecified Malignant neoplasm of lower third of esophagus (HCC) Malignant neoplasm of lower third of esophagus Essential hypertension, benign Mixed hyperlipidemia 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 Gastroesophageal reflux disease, unspecified whether esophagitis present Aortic valve stenosis, etiology of cardiac valve disease unspecified Essential hypertension, benign S/P CABG x 4 Postsurgical aortocoronary bypass status Mixed hyperlipidemia Asthma Unspecified asthma GERD (gastroesophageal reflux disease) Esophageal reflux 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 artery disease involving [place] coronary artery without angina pectoris Pre-transplant evaluation [...] tract symptoms present documented in this encounter [facility] note* Diagnosis Malignant neoplasm of esophagus, unspecified location (HCC) Pre-op exam Preoperative examination, unspecified Malignant neoplasm of lower third of esophagus (HCC) Malignant neoplasm of lower third of esophagus Essential hypertension, benign Mixed hyperlipidemia 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 Gastroesophageal reflux disease, unspecified whether esophagitis present Aortic valve stenosis, etiology of cardiac valve disease unspecified Essential hypertension, benign S/P CABG x 4 Postsurgical aortocoronary bypass status Mixed hyperlipidemia Asthma Unspecified asthma GERD (gastroesophageal reflux disease) Esophageal reflux 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 artery disease involving [place] coronary artery without angina pectoris Gynecomastia- Primary [...] neoplasm of ovary [facility] Diagnosis Malignant neoplasm of esophagus, unspecified location (HCC) Pre-op exam Preoperative examination, unspecified Malignant neoplasm of lower third of esophagus (HCC) Malignant neoplasm of lower third of esophagus Essential hypertension, benign Mixed hyperlipidemia 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 Gastroesophageal reflux disease, unspecified whether esophagitis present Aortic valve stenosis, etiology of cardiac valve disease unspecified Essential hypertension, benign S/P CABG x 4 Postsurgical aortocoronary bypass status Mixed hyperlipidemia Asthma (HCC) Unspecified asthma GERD (gastroesophageal reflux disease) Esophageal reflux 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 artery disease involving [place] coronary artery without angina pectoris Dog scratch- Primary Other and unspecified superficial injury of other, multiple, and unspecified sites, without mention of infection Visit for wound check Encounter for other specified aftercare [facility] Diagnosis Malignant neoplasm of esophagus, unspecified location (HCC) Pre-op exam Preoperative examination, unspecified Malignant neoplasm of lower third of esophagus (HCC) Malignant neoplasm of lower third of esophagus Essential hypertension, benign Mixed hyperlipidemia 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 Gastroesophageal reflux disease, unspecified whether esophagitis present Aortic valve stenosis, etiology of cardiac valve disease unspecified Essential hypertension, benign S/P CABG x 4 Postsurgical aortocoronary bypass status Mixed hyperlipidemia Asthma (HCC) Unspecified asthma GERD (gastroesophageal reflux disease) Esophageal reflux 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 artery disease involving [place] coronary artery without angina pectoris Acute bilateral low back pain without sciatica- Primary Acute bilateral low back pain without sciatica [facility] Diagnosis Malignant neoplasm of esophagus, unspecified location (HCC) Pre-op exam Preoperative examination, unspecified Malignant neoplasm of lower third of esophagus (HCC) Malignant neoplasm of lower third of esophagus Essential hypertension, benign Mixed hyperlipidemia 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 Gastroesophageal reflux disease, unspecified whether esophagitis present Aortic valve stenosis, etiology of cardiac valve disease unspecified Essential hypertension, benign S/P CABG x 4 Postsurgical aortocoronary bypass status Mixed hyperlipidemia Asthma (HCC) Unspecified asthma GERD (gastroesophageal reflux disease) Esophageal reflux 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 artery disease involving [place] coronary artery without angina pectoris Acute bilateral low back pain without sciatica documented [facility] Diagnosis Malignant neoplasm of esophagus, unspecified location (HCC) Pre-op exam Preoperative examination, unspecified Malignant neoplasm of lower third of esophagus (HCC) Malignant neoplasm of lower third of esophagus Essential hypertension, benign Mixed hyperlipidemia 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 Gastroesophageal reflux disease, unspecified whether esophagitis present Aortic valve stenosis, etiology of cardiac valve disease unspecified Essential hypertension, benign S/P CABG x 4 Postsurgical aortocoronary bypass status Mixed hyperlipidemia Asthma (HCC) Unspecified asthma GERD (gastroesophageal reflux disease) Esophageal reflux 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 artery disease involving [place] coronary artery without angina pectoris Hyperprolactinemia (HCC)- Primary Other and unspecified anterior pituitary hyperfunction Abnormal FSH level Unspecified endocrine disorder High serum luteinizing hormone (LH) Hyperprolactinemia (HCC) Other and unspecified anterior pituitary hyperfunction Abnormal FSH level Unspecified endocrine disorder High serum luteinizing hormone (LH) [facility] Diagnosis Malignant neoplasm of esophagus, unspecified location (HCC) Pre-op exam Preoperative examination, unspecified Malignant neoplasm of lower third of esophagus (HCC) Malignant neoplasm of lower third of esophagus Essential hypertension, benign Mixed hyperlipidemia 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 Gastroesophageal reflux disease, unspecified whether esophagitis present Aortic valve stenosis, etiology of cardiac valve disease unspecified Essential hypertension, benign S/P CABG x 4 Postsurgical aortocoronary bypass status Mixed hyperlipidemia Asthma (HCC) Unspecified asthma GERD (gastroesophageal reflux disease) Esophageal reflux 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 artery disease involving [place] coronary artery without angina pectoris Hyperprolactinemia (HCC) Other and unspecified anterior pituitary hyperfunction Abnormal FSH level Unspecified endocrine disorder High serum luteinizing hormone (LH) [facility] Diagnosis Malignant neoplasm of esophagus, unspecified location (HCC) Pre-op exam Preoperative examination, unspecified Malignant neoplasm of lower third of esophagus (HCC) Malignant neoplasm of lower third of esophagus Essential hypertension, benign Mixed hyperlipidemia 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 Gastroesophageal reflux disease, unspecified whether esophagitis present Aortic valve stenosis, etiology of cardiac valve disease unspecified Essential hypertension, benign S/P CABG x 4 Postsurgical aortocoronary bypass status Mixed hyperlipidemia Asthma (HCC) Unspecified asthma GERD (gastroesophageal reflux disease) Esophageal reflux 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 artery disease involving [place] coronary artery without angina pectoris Skin tear of left forearm without complication, initial encounter- Primary [facility] Diagnosis Malignant neoplasm of esophagus, unspecified location (HCC) Pre-op exam Preoperative examination, unspecified Malignant neoplasm of lower third of esophagus (HCC) Malignant neoplasm of lower third of esophagus Essential hypertension, benign Mixed hyperlipidemia 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 Gastroesophageal reflux disease, unspecified whether esophagitis present Aortic valve stenosis, etiology of cardiac valve disease unspecified Essential hypertension, benign S/P CABG x 4 Postsurgical aortocoronary bypass status Mixed hyperlipidemia Asthma (HCC) Unspecified asthma GERD (gastroesophageal reflux disease) Esophageal reflux 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 artery disease involving [place] coronary artery without angina pectoris History of cerebral infarction- Primary Transient ischemic attack (TIA), and cerebral infarction without residual deficits Gynecomastia Hypertrophy of breast documented in this encounter [facility] note* Diagnosis Malignant neoplasm of esophagus, unspecified location (HCC) Pre-op exam Preoperative examination, unspecified Malignant neoplasm of lower third of esophagus (HCC) Malignant neoplasm of lower third of esophagus Essential hypertension, benign Mixed hyperlipidemia 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 Gastroesophageal reflux disease, unspecified whether esophagitis present Aortic valve stenosis, etiology of cardiac valve disease unspecified Essential hypertension, benign S/P CABG x 4 Postsurgical aortocoronary bypass status Mixed hyperlipidemia Asthma (HCC) Unspecified asthma GERD (gastroesophageal reflux disease) Esophageal reflux 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 artery disease involving [place] coronary artery without angina pectoris Gynecomastia- Primary Hypertrophy of breast Elevated prolactin level Unspecified endocrine disorder Follicle stimulating hormone excess Other and unspecified anterior pituitary hyperfunction Abnormal pituitary luteinizing hormone (LH) [facility] Diagnosis Malignant neoplasm of esophagus, unspecified location (HCC) Pre-op exam Preoperative examination, unspecified Malignant neoplasm of lower third of esophagus (HCC) Malignant neoplasm of lower third of esophagus Essential hypertension, benign Mixed hyperlipidemia 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 Gastroesophageal reflux disease, unspecified whether esophagitis present Aortic valve stenosis, etiology of cardiac valve disease unspecified Essential hypertension, benign S/P CABG x 4 Postsurgical aortocoronary bypass status Mixed hyperlipidemia Asthma (HCC) Unspecified asthma GERD (gastroesophageal reflux disease) Esophageal reflux 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 artery disease involving [place] coronary artery without angina pectoris Essential hypertension, benign- Primary Mixed hyperlipidemia 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 Esophageal adenocarcinoma (HCC) [...] specified intestinal malabsorption [facility] Diagnosis Malignant neoplasm of esophagus, unspecified location (HCC) Pre-op exam Preoperative examination, unspecified Malignant neoplasm of lower third of esophagus (HCC) Malignant neoplasm of lower third of esophagus Essential hypertension, benign Mixed hyperlipidemia 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 Gastroesophageal reflux disease, unspecified whether esophagitis present Aortic valve stenosis, etiology of cardiac valve disease unspecified Essential hypertension, benign S/P CABG x 4 Postsurgical aortocoronary bypass status Mixed hyperlipidemia Asthma (HCC) Unspecified asthma GERD (gastroesophageal reflux disease) Esophageal reflux 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 artery disease involving [place] coronary artery without angina pectoris Lumbar back pain Lumbago [facility] Diagnosis Malignant neoplasm of esophagus, unspecified location (HCC) Pre-op exam Preoperative examination, unspecified Malignant neoplasm of lower third of esophagus (HCC) Malignant neoplasm of lower third of esophagus Essential hypertension, benign Mixed hyperlipidemia 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 Gastroesophageal reflux disease, unspecified whether esophagitis present Aortic valve stenosis, etiology of cardiac valve disease unspecified Essential hypertension, benign S/P CABG x 4 Postsurgical aortocoronary bypass status Mixed hyperlipidemia Asthma (HCC) Unspecified asthma GERD (gastroesophageal reflux disease) Esophageal reflux 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 artery disease involving [place] coronary artery without angina pectoris Compression fracture of L5 vertebra with routine healing, subsequent encounter- Primary [facility] Diagnosis Malignant neoplasm of esophagus, unspecified location (HCC) Pre-op exam Preoperative examination, unspecified Malignant neoplasm of lower third of esophagus (HCC) Malignant neoplasm of lower third of esophagus Essential hypertension, benign Mixed hyperlipidemia 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 Gastroesophageal reflux disease, unspecified whether esophagitis present Aortic valve stenosis, etiology of cardiac valve disease unspecified Essential hypertension, benign S/P CABG x 4 Postsurgical aortocoronary bypass status Mixed hyperlipidemia Asthma (HCC) Unspecified asthma GERD (gastroesophageal reflux disease) Esophageal reflux 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 artery disease involving [place] coronary artery without angina pectoris Gynecomastia Hypertrophy of breast Elevated prolactin level Unspecified endocrine disorder Follicle stimulating hormone excess Other and unspecified anterior pituitary hyperfunction [facility] Diagnosis Malignant neoplasm of esophagus, unspecified location (HCC) Pre-op exam Preoperative examination, unspecified Malignant neoplasm of lower third of esophagus (HCC) Malignant neoplasm of lower third of esophagus Essential hypertension, benign Mixed hyperlipidemia 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 Gastroesophageal reflux disease, unspecified whether esophagitis present Aortic valve stenosis, etiology of cardiac valve disease unspecified Essential hypertension, benign S/P CABG x 4 Postsurgical aortocoronary bypass status Mixed hyperlipidemia Asthma (HCC) Unspecified asthma GERD (gastroesophageal reflux disease) Esophageal reflux 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 artery disease involving [place] 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 documented in this encounter [facility] note* Diagnosis Malignant neoplasm of esophagus, unspecified location (HCC) Pre-op exam Preoperative examination, unspecified Malignant neoplasm of lower third of esophagus (HCC) Malignant neoplasm of lower third of esophagus Essential hypertension, benign Mixed hyperlipidemia 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 Gastroesophageal reflux disease, unspecified whether esophagitis present Aortic valve stenosis, etiology of cardiac valve disease unspecified Essential hypertension, benign S/P CABG x 4 Postsurgical aortocoronary bypass status Mixed hyperlipidemia Asthma (HCC) Unspecified asthma GERD (gastroesophageal reflux disease) Esophageal reflux 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 artery disease involving [place] coronary artery without angina pectoris Malignant neoplasm of lower third of esophagus (HCC)- Primary Malignant neoplasm of lower third of esophagus Compression fx, lumbar spine, closed, initial encounter ([facility]) Collapsed vertebra, not elsewhere classified, lumbar region, initial encounter for fracture ([facility]) documented in this encounter [facility] note* Diagnosis Malignant neoplasm of esophagus, unspecified location (HCC) Pre-op exam Preoperative examination, unspecified Malignant neoplasm of lower third of esophagus (HCC) Malignant neoplasm of lower third of esophagus Essential hypertension, benign Mixed hyperlipidemia 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 Gastroesophageal reflux disease, unspecified whether esophagitis present Aortic valve stenosis, etiology of cardiac valve disease unspecified Essential hypertension, benign S/P CABG x 4 Postsurgical aortocoronary bypass status Mixed hyperlipidemia Asthma (HCC) Unspecified asthma GERD (gastroesophageal reflux disease) Esophageal reflux 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 artery disease involving [place] coronary artery without angina pectoris Chronic sinusitis, unspecified location- Primary Seasonal allergic rhinitis, unspecified trigger documented in this encounter [facility] for referral (narrative)* Outpatient Procedure (Routine) - Authorized Specialty Diagnoses / Procedures Referred By Contac t Referred To Contact [facility] Diagnoses Malignant neoplasm of lower third of esophagus (HCC) Procedures EGD DIAGNOSTIC ESOPHAGOGASTRODUODENOSC OPY TRANSORAL DIAGNOSTIC Renetta Radford MD [address] [place] [address] [facility] [place] [address] [place] [address] Referral ID Status Reason Start Date Expiration Date Visits Requested Visits Authorized [id number] Authorized Auto-Generat ed Referral 08/04/2021 08/04/2022 1 1 [facility] for referral (narrative)* Outpatient Procedure (Routine) - Authorized Specialty Diagnoses / Procedures Referred By Contac t Referred To Contact [facility] Diagnoses Malignant neoplasm of lower third of esophagus (HCC) Procedures EGD DIAGNOSTIC ESOPHAGOGASTRODUODENOSC OPY TRANSORAL DIAGNOSTIC Queta Gleason, ADALGISA.WILDLIFE CONSERVATION OFFICER [address] [place] [address] [facility] [address] [place], [place] [id number] Referral ID Status Reason Start Date Expiration Date Visits Requested Visits Authorized [id number] Authorized Auto-Generat ed Referral 09/07/2021 09/07/2022 1 1 [facility] for referral (narrative)* Outpatient Procedure (Routine) - Closed Specialty Diagnoses / Procedures Referred By Contac t Referred To Contact [facility] Diagnoses Malignant neoplasm of lower third of esophagus (HCC) Procedures EGD DIAGNOSTIC ESOPHAGOGASTRODUODENOSC OPY TRANSORAL DIAGNOSTIC Renetta Radford MD [address] [place] [address] [facility] [address] [place] [address] Referral ID Status Reason Start Date Expiration Date V isits Requested Visits Authorized [id number] Closed Auto-Generate d Referral 08/04/2021 08/04/2022 1 1 [facility] for referral (narrative)* Outpatient Procedure (Routine) - Pending Review Specialty Diagnoses / Procedures Referred By Contac t Referred To Contact [facility] Diagnoses Malignant neoplasm of lower third of esophagus (HCC) Procedures EGD DIAGNOSTIC ESOPHAGOGASTRODUODENOSC OPY TRANSORAL DIAGNOSTIC Queta Gleason APRN.WILDLIFE CONSERVATION OFFICER [address] [place] [address] [facility] [address] [place] [address] Referral ID Status Reason Start Date Expiration Date Visits Requested Visits Authorized [id number] Pending Review Auto-Generat ed Referral 11/09/2021 11/09/2022 1 1 [facility] for referral (narrative)* Outpatient Procedure (Routine) - Closed Specialty Diagnoses / Procedures Referred By Contac t Referred To Contact [facility] Diagnoses Malignant neoplasm of lower third of esophagus (HCC) Procedures EGD DIAGNOSTIC ESOPHAGOGASTRODUODENOSC OPY TRANSORAL DIAGNOSTIC Queta Gleason APRN.CNP [address] [place] [address] [id number] [place] [address] Referral ID Status Reason Start Date Expiration Date V isits Requested Visits Authorized [id number] Closed Auto-Generate d Referral 09/07/2021 09/07/2022 1 1 [facility] for referral (narrative)* Diagnostic Procedure Only (Urgent) - Closed Specialty Diagnoses / Procedures Referred By Contac t Referred To Contact XR IMAGING Diagnoses Rib injury Procedures XR RIBS/CHEST 3V AP RIB/OBLS/CXR RIGHT RADEX RIBS UNI W/POSTEROANT CH MINIMUM 3 VIEWS Yaw Smith APRN.WILDLIFE CONSERVATION OFFICER [address] [place] [address] [facility] Referral ID Status Reason Start Date Expiration Date V isits Requested Visits Authorized [id number] Closed Auto-Generate d Referral 06/09/2022 07/09/2023 1 1 [facility] for referral (narrative)* Outpatient Procedure (Routine) - Closed Specialty Diagnoses / Procedures Referred By Contac t Referred To Contact [facility] Diagnoses Malignant neoplasm of lower third of esophagus (HCC) Procedures EGD DIAGNOSTIC ESOPHAGOGASTRODUODENOSC OPY TRANSORAL DIAGNOSTIC Queta Hunt APRN.WILDLIFE CONSERVATION OFFICER [address] [place] [address] [facility] [place] [address] [place] [address] Referral ID Status Reason Start Date Expiration Date V isits Requested Visits Authorized [id number] Closed Auto-Generate d Referral 11/09/2021 11/09/2022 1 1 [facility] for referral (narrative)* Diagnostic Procedure Only (Routine) - Authorized Specialty Diagnoses / Procedures Referred By Contac t Referred To Contact [facility] Diagnoses Malignant neoplasm of lower third of esophagus (HCC) Procedures NM PET/CT SKULL-THIGH SUBSEQUENT PET IMAGING CT ATTENUATION SKULL BASE MID-THIGH Richard Jenkins DO [address] [place] [address] [facility] [address] [phone] Referral ID Status Reason Start Date Expiration Date Visits Requested Visits Authorized [id number] Authorized Auto-Generat ed Referral 04/27/2024 1 1 [facility] for referral (narrative)* Outpatient Procedure (Routine) - Pending Review Specialty Diagnoses / Procedures Referred By Contac pamela Referred To Contact [facility] Diagnoses Malignant neoplasm of esophagus, unspecified location (HCC) Procedures EGD - THERAPEUTIC, EUS, OR TUBE INTERVENTIONS EDG US EXAM SURGICAL ALTER STOM DUODENUM/JEJUNUM Amos Rangel MD [address] [place] [address] [facility] [place] [address] [place] [address] Referral ID Status Reason Start Date Expiration Date Visits Requested Visits Authorized [id number] Pending Review Auto-Generat ed Referral 05/28/2023 05/28/2024 1 1 [facility] for referral (narrative)* Outpatient Procedure (Routine) - Closed Specialty Diagnoses / Procedures [facility] Diagnoses Malignant neoplasm of esophagus, unspecified location (HCC) Procedures EGD - THERAPEUTIC, EUS, OR TUBE INTERVENTIONS EDG US EXAM SURGICAL ALTER STOM DUODENUM/JEJUNUM Amos Rangel MD [address] [place] [address] [facility] [place] [address] [place] [address] Referral ID Status Reason Start Date Expiration Date V isits Requested Visits Authorized [id number] Closed Auto-Generate d Referral 05/28/2023 05/28/2024 1 1 [facility] for referral (narrative)* Diagnostic Procedure Only (Routine) - Authorized Specialty Diagnoses / Procedures [facility] Ref[facility] To Contact [facility] Diagnoses RUQ pain Nausea Procedures NM HEPATOBILIARY W EF AND/OR RX HEPATOBIL SYST IMAG INC GB W/PHARMA INTERVENJ Usha Mcgovern PA-C [address] [place] [address] [facility] [address] [phone] Referral ID Status Reason Start Date Expiration Date Visits Requested Visits Authorized [id number] Authorized Auto-Generat ed Referral 06/19/2023 07/18/2024 1 1 * Diagnostic Procedure Only (Routine) - Authorized Specialty Diagnoses / Procedures [facility] Ref[facility] To Contact [facility] Diagnoses RUQ pain Nausea Procedures US ABD RIGHT UPPER QUADRANT US ABDOMINAL REAL TIME W/IMAGE LIMITED Usha Mcgovern PA-C [address] [place] [address] [facility] [place] [address] Referral ID Status Reason Start Date Expiration Date Visits Requested Visits Authorized [id number] Authorized Auto-Generat ed Referral 06/19/2023 07/18/2024 1 1 [facility] for referral (narrative)* Diagnostic Procedure Only (Routine) - Closed Specialty Diagnoses / Procedures Referred By Contac t Referred To Contact [facility] Diagnoses RUQ pain Nausea Procedures NM HEPATOBILIARY W EF AND/OR RX HEPATOBIL SYST IMAG INC GB W/PHARMA INTERVENJ Usha Mcgovern PA-C [address] [place] [address] [facility] [address] [place] [address] Referral ID Status Reason Start Date Expiration Date V isits Requested Visits Authorized [id number] Closed Auto-Generate d Referral 06/19/2023 07/18/2024 1 1 [facility] for referral (narrative)* Outpatient Procedure (Routine) - Authorized Specialty Diagnoses / Procedures Referred By Contac t Referred To Contact [facility] Diagnoses Pleural effusion TRIPATHI (dyspnea on exertion) Procedures ECHO ECHO TTHRC R-T 2D W/WOM-MODE COMPL SPEC&COLR D Usha Mcgovern PA-C [address] [place] [address] [facility] [place] [address] [place] [address] Referral ID Status Reason Start Date Expiration Date Visits Requested Visits Authorized [id number] Authorized Auto-Generat ed Referral 09/13/2023 09/12/2024 1 1 [facility] for referral (narrative)* Diagnostic Procedure Only (Urgent) - Closed Specialty Diagnoses / Procedures Referred By Contac t Referred To Contact XR IMAGING Diagnoses Rib injury Procedures XR RIBS/CHEST 3V AP RIB/OBLS/CXR RIGHT RADEX RIBS UNI W/POSTEROANT CH MINIMUM 3 VIEWS Yaw Smith, ADALGISA.WILDLIFE CONSERVATION OFFICER [address] [place] [address] [place] [address] Referral ID Status Reason Start Date Expiration Date V isits Requested Visits Authorized [id number] Closed Auto-Generate d Referral 06/09/2022 07/09/2023 1 1 [facility] for referral (narrative)* Diagnostic Procedure Only (Routine) - Authorized Specialty Diagnoses / Procedures Referred By Contac t Referred To Contact XR IMAGING Diagnoses Malignant neoplasm of lower third of esophagus (HCC) Early satiety Nausea Procedures XR GI SMALL BOWEL FOLLOW-THRU RADIOLOGIC SMALL INTESTINE FOLLOW-THROUGH STUDY Richard Jenkins, DO [address] [place] [address] [place] [address] Referral ID Status Reason Start Date Expiration Date Visits Requested Visits Authorized [id number] Authorized Auto-Generat ed Referral 01/15/2024 02/13/2025 1 1 * Diagnostic Procedure Only (Routine) - Authorized Specialty Diagnoses / Procedures Referred By Contac t Referred To Contact XR IMAGING Diagnoses Malignant neoplasm of lower third of esophagus (HCC) Early satiety Nausea Procedures XR UPPER GI SINGLE CONTRAST RADIOLOGIC EXAM UPR GI TRC SINGLE CONTRAST STUDY Richard Jenkins DO [address] [place] [address] [place] [address] Referral ID Status Reason Start Date Expiration Date Visits Requested Visits Authorized [id number] Authorized Auto-Generat ed Referral 01/15/2024 02/13/2025 1 1 * MRI/CT (Routine) - Authorized Specialty Diagnoses / Procedures Referred By Contac t Referred To Contact CT IMAG[facility] Diagnoses Malignant neoplasm of lower third of esophagus (HCC) Procedures CT ABD/PEL WO IVCON CT ABD & PELVIS W/O CONTRAST Richard Jenkins DO [address] [place] [address] [place] [address] Referral ID Status Reason Start Date Expiration Date Visits Requested Visits Authorized [id number] Authorized Auto-Generat ed Referral 01/15/2024 02/13/2025 1 1 * MRI/CT (Routine) - Authorized Specialty Diagnoses / Procedures Referred By Contac t Referred To Contact CT [facility] Diagnoses Malignant neoplasm of lower third of esophagus (HCC) Procedures CT CHEST WO IVCON DIAGNOSTIC COMPUTED TOMOGRAPHY THORAX W/O CNTRST Richard Jenkins, DO [address] [place] [address] [place] [address] Referral ID Status Reason Start Date Expiration Date Visits Requested Visits Authorized [id number] Authorized Auto-Generat ed Referral 01/15/2024 02/13/2025 1 1 [facility] for referral (narrative)* Diagnostic Procedure Only (Routine) - Closed Specialty Diagnoses / Procedures Referred By Contac t Referred To Contact XR IMAGING Diagnoses Malignant neoplasm of lower third of esophagus (HCC) Early satiety Nausea Procedures XR UPPER GI SINGLE CONTRAST RADIOLOGIC EXAM UPR GI TRC SINGLE CONTRAST STUDY Richard Jenkins, DO [address] [place] [address] [place] [address] Referral ID Status Reason Start Date Expiration Date V isits Requested Visits Authorized [id number] Closed Auto-Generate d Referral 01/15/2024 02/13/2025 1 1 [facility] for referral (narrative)* Diagnostic Procedure Only (Routine) - Closed Specialty Diagnoses / Procedures Referred By Contac t Referred To Contact XR IMAGING Diagnoses Malignant neoplasm of lower third of esophagus (HCC) Early satiety Nausea Procedures XR GI SMALL BOWEL FOLLOW-THRU RADIOLOGIC SMALL INTESTINE FOLLOW-THROUGH STUDY Richard Jenkins, DO [address] [place] [address] [place] [address] Referral ID Status Reason Start Date Expiration Date V isits Requested Visits Authorized [id number] Closed Auto-Generate d Referral 01/15/2024 02/13/2025 1 1 [facility] for referral (narrative)No reason for referral information availableWCoshoct[facility] Work Phone[facility] Narrative* Outpatient Procedure (Routine) - Closed Specialty Diagnoses / Procedures Referred By Contac t Referred To Contact [facility] Diagnoses Malignant neoplasm of lower third of esophagus (HCC) Procedures EGD DIAGNOSTIC ESOPHAGOGASTRODUODENOSC OPY TRANSORAL DIAGNOSTIC Renetta Radford MD [address] [place] [address] [facility] [address] [place] [address] Referral ID Status Reason Start Date Expiration Date V isits Requested Visits Authorized [id number] Closed Auto-Generate d Referral 08/04/2021 08/04/2022 1 1 [facility] for visit Narrative* Outpatient Procedure (Routine) - Closed Specialty Diagnoses / Procedures Referred By Contac t Referred To Contact [facility] Diagnoses Malignant neoplasm of lower third of esophagus (HCC) Procedures EGD DIAGNOSTIC ESOPHAGOGASTRODUODENOSC OPY TRANSORAL DIAGNOSTIC Queta Gleason, COMPUTER CONSOLE OPERATOR.WILDLIFE CONSERVATION OFFICER [address] [place] [address] [facility] [address] [place] [address] Referral ID Status Reason Start Date Expiration Date V isits Requested Visits Authorized [id number] Closed Auto-Generate d Referral 09/07/2021 09/07/2022 1 1 [facility] for visit Narrative* Outpatient Procedure (Routine) - Closed Specialty Diagnoses / Procedures Referred By Contac t Referred To Contact [facility] Diagnoses Malignant neoplasm of lower third of esophagus (HCC) Procedures EGD DIAGNOSTIC ESOPHAGOGASTRODUODENOSC OPY TRANSORAL DIAGNOSTIC Queta Hunt , COMPUTER CONSOLE OPERATOR.WILDLIFE CONSERVATION OFFICER [address] [place] [address] [facility] [address] [place] [address] Referral ID Status Reason Start Date Expiration Date V isits Requested Visits Authorized [id number] Closed Auto-Generate d Referral 11/09/2021 11/09/2022 1 1 [facility] for visit Narrative* Outpatient Procedure (Routine) - Closed Specialty Diagnoses / Procedures [facility] Diagnoses Malignant neoplasm of esophagus, unspecified location (HCC) Procedures EGD - THERAPEUTIC, EUS, OR TUBE INTERVENTIONS EDG US EXAM SURGICAL ALTER STOM DUODENUM/JEJUNUM Amos Rangel MD [address] [place] [address] [facility] [place] [address] [place] [address] Referral ID Status Reason Start Date Expiration Date V isits Requested Visits Authorized [id number] Closed Auto-Generate d Referral 05/28/2023 05/28/2024 1 1 [facility] for visit Narrative* Diagnostic Procedure Only (Urgent) - Closed Specialty Diagnoses / Procedures [facility] Referred To Contact XR IM[facility] Diagnoses Rib injury Procedures XR RIBS/CHEST 3V AP RIB/OBLS/CXR RIGHT RADEX RIBS UNI W/POSTEROANT CH MINIMUM 3 VIEWS Yaw Smith APRN.WILDLIFE CONSERVATION OFFICER [address] [place] [address] [place] [address] Referral ID Status Reason Start Date Expiration Date V isits Requested Visits Authorized [id number] Closed Auto-Generate d Referral 06/09/2022 07/09/2023 1 1 [facility] for visit Narrative* Diagnostic Procedure Only (Routine) - Closed Specialty Diagnoses / Procedures [facility] Referred To Contact XR IM[facility] Diagnoses Malignant neoplasm of lower third of esophagus (HCC) Early satiety Nausea Procedures XR UPPER GI SINGLE CONTRAST RADIOLOGIC EXAM UPR GI TRC SINGLE CONTRAST STUDY Richard Jenkins, DO [address] [place] [address] [place] [address] Referral ID Status Reason Start Date Expiration Date V isits Requested Visits Authorized [id number] Closed Auto-Generate d Referral 01/15/2024 02/13/2025 1 1 [facility] for visit Narrative* Diagnostic Procedure Only (Routine) - Closed Specialty Diagnoses / Procedures Referred By Contac t Referred To Contact XR IMAGING Diagnoses Malignant neoplasm of lower third of esophagus (HCC) Early satiety Nausea Procedures XR GI SMALL BOWEL FOLLOW-THRU RADIOLOGIC SMALL INTESTINE FOLLOW-THROUGH STUDY Richard Jenkins, DO [address] [place] [address] [place] [address] Referral ID Status Reason Start Date Expiration Date V isits Requested Visits Authorized [id number] Closed Auto-Generate d Referral 01/15/2024 02/13/2025 1 1 [facility] for visit Narrative* Diagnostic Procedure Only (Urgent) - Closed Specialty Diagnoses / Procedures Referred By Contac t Referred To Contact XR IMAGING Diagnoses Acute bilateral low back pain without sciatica Procedures XR LUMBAR GENERAL 3V AP/LAT/L5-S1 RADEX SPINE LUMBOSACRAL 2/3 VIEWS Steve Youssef PA-C [address] [facility] [address] [place] [address] Phone: tel: fax: [place] [address] Referral ID Status Reason Start Date Expiration Date V isits Requested Visits Authorized [id number] Closed Auto-Generate d Referral 08/20/2024 09/19/2025 1 1 [facility] for visit Narrative* MRI/CT (Routine) - Closed Specialty Diagnoses / Procedures Referred By Contac t Referred To Contact MR IMAGING Diagnoses Hyperprolactinemia (HCC) Abnormal FSH level High serum luteinizing hormone (LH) Procedures MRI BRAIN WO IVCON MRI BRAIN BRAIN STEM W/O CONTRAST MATERIAL Stacia Adame MD [address] [place] [address] Phone: tel: fax: [place] [address] Referral ID Status Reason Start Date Expiration Date V isits Requested Visits Authorized [id number] Closed Auto-Generate d Referral 07/11/2024 08/10/2025 1 1 [facility] for visit Narrative* Diagnostic Procedure Only (Routine) - Closed Specialty Diagnoses / Procedures Referred By Contac t Referred To Contact XR IMAGING Diagnoses Lumbar back pain Procedures XR LUMBAR PARS DEFECT 4V AP/LAT/BOTH OBL RADEX SPINE LUMBOSACRAL MINIMUM 4 VIEWS Usha Mcgovern PA-C [address] [place] [address] Phone: tel: fax: [place] [address] Referral ID Status Reason Start Date Expiration Date V isits Requested Visits Authorized [id number] Closed Auto-Generate d Referral 10/07/2024 11/06/2025 1 1 [facility]/CT (Routine) - Closed Specialty Diagnoses / Procedures Referred By Nahomy t Referred To Contact CT IMAGING Diagnoses Malignant neoplasm of lower third of esophagus (HCC) Procedures CT ABD/PEL WO IVCON CT ABD & PELVIS W/O CONTRAST Richard Jenkins, DO [address] [place] [address] Phone: tel: fax: [place] [address] Referral ID Status Reason Start Date Expiration Date V isits Requested Visits Authorized [id number] Closed Auto-Generate d Referral 05/02/2024 06/01/2025 1 1 [facility] Summary Purpose Family History No Family History Records Found Relationship Condition Age at Onset Recorded Date/T sary father Cardiac disease Unknown Myocardial infarction Unknown Hypertension Unknown brother Hypertension Unknown sister Cardiac disease Unknown Advance Directives No Advanced Directives Records FoundDocuments on File Type Date Recorded Patient Sales Person Expl anation Advance Directives and Living Will Power of Cvt Tech Latest Code Status on File Code Status Date Activated Date Inactivated Comments Full Code 07/25/2013 5:08 PM 07/26/2013 1:38 PM Documents on File Type Date Recorded Patient Sales Person Expl anation ACP-Advance Directive ACP-Power of Cvt Tech Latest Code Status on File Code Status Date Activated Date Inactivated Comments Full Code 03/03/2019 8:59 AM 03/04/2019 3:48 PM Full Code 03/03/2019 5:32 AM 03/03/2019 8:33 AM Full Code 07/25/2013 5:08 PM 07/26/2013 1:38 PM Documents on File Type Date Recorded Patient Sales Person Expl anation Advance Directives and Living Will Power of Cvt Tech Latest Code Status on File Code Status [...] Documents on File Type Date Recorded Patient Sales Person Expl anation Advance Directive(s) 11/16/2020 1:24 PM [...] Documents on File Type Date Recorded Patient Sales Person Expl anation Advance Directive(s) 11/16/2020 1:24 PM [...] No June 23, 2022 4:34pm Power of Cvt Tech No June 23 4:34pm Advance Directive Response Recorded Date/ Time Advance Directives No June 27 6:19pm Advance Directive Response Recorded Date/ Time Living Will Yes June 02 11:59am Do you have a Healthcare Pow er of Cvt Tech? Yes June 02, 2024 11:59am Name of Medical Power of Cvt Tech LACHO YARELY SLAUGHTERDodie June 02, 2024 11:59am Advance Directives No June 27 6:19pm Advance Directive Response Recorded Date/ Time Living Will Yes June 02 11:59am Do you have a Healthcare Pow er of Cvt Tech? Yes June 02, 2024 11:59am Name of Medical Power of Cvt Tech LACHO FROST June 02, 2024 11:59am Do you have a Healthcare Pow er of Cvt Tech? Yes September 17, 2024 10:04pm Advance Directives No June 27 6:19pm Advance Directive Response Recorded Date/ Time Living Will Yes June 02 11:59am Do you have a Healthcare Power of Cvt Tech? Yes June 02, 2024 11:59am Name of Medical Power of Cvt Tech LACHO BECERRASHIMONDANY June 02, 2024 11:59am Do you have a Healthcare Power of Cvt Tech? Yes September 17, 2024 10:04pm Advance Directives on File Yes October 15, 2024 9:21am Living Will Yes October 15, 2024 9 :21am Do you have a Healthcare Power of Cvt Tech? Yes October 15, 2024 9:21am Name of Medical Power of Cvt Tech Camryn Baird- Daughter October 15, 2024 9:21am Advance Directives Yes October 15 9:21am Advance Directive Response Recorded Date/ Time Do you have a Healthcare Pow er of Cvt Tech? Yes September 17, 2024 10:04pm Advance Directives on File Yes October 15, 2024 9:21am Living Will Yes October 15, 2024 9 :21am Do you have a Healthcare Pow er of Cvt Tech? Yes Sujatha 9th, 2025 9:21am Name of Medical Power of Cvt Tech Camryn Baird- Daughter October 15, 2024 9:21am Advance Directives Yes October 15 9:21am Hospital Course Note EMERGENCY DEPARTMENT DISCHAR GE SUMMARY PATIENT NAME:JACOB LANDA MRN: [id number] AGE: 63 Years SEX: Male PHONE:[phone] DOS: 12/30/2018 10:54:00 : 1955 ATTENDING PHYSICIAN:Yessi [...] summary document to your follow up appointments. [facility] 01/01/19 13:40 [address] [place]. [address] PATIENT INFORMATION Name: JACOB LANDA Address: [address] [place] [id number] Age: 63 Years Phone: [phone] : 1955 12:00 MRN: [id number] Sex: Male Race: White Ethnicity: Not Hispan/Lat Admitted From: [facility] Medical Service: Internal Medicine Nurse Unit/Bed: (CHRIS ORELLANA [id number] Admit Date: 12/31/2018 10:30 PCP: Physician, PCP [...] MD DATE OF ADMISSION: 12/30/2018 ADMITTING ATTENDING: [facility]. PRIMARY CARE PHYSICIAN: Unknown. REASON FOR ADMISSION: Right-sided chest pain with diaphoresis and nausea. HISTORY OF PRESENT ILLNESS: The patient is a pleasant 63-year-old male who gets most of his healthcare done in the [facility] as he lives in [place], [place]. His utilization specialist in [place] has been caring for him for some time. The patient has previously underwent coronary artery bypass grafting and subsequently also underwent 3 stents to his LAD for a non-ST elevation myocardial infarction that he had similar symptoms when he presented with that. He is also apparently being evaluated for aortic stenosis and possible TAVR for 2019. His utilization specialist name is Dr. Noland. Today, he started [...] MD DATE OF ADMISSION: 12/30/2018 ADMITTING ATTENDING: [facility]. PRIMARY CARE PHYSICIAN: Unknown. REASON FOR ADMISSION: Right-sided chest pain with diaphoresis and nausea. HISTORY OF PRESENT ILLNESS: The patient is a pleasant 63-year-old male who gets most of his healthcare done in the [facility] as he lives in [place], [place]. His utilization specialist in [place] has been caring for him for some time. The patient has previously underwent coronary artery bypass grafting and subsequently also underwent 3 stents to his LAD for a non-ST elevation myocardial infarction that he had similar symptoms when he presented with that. He is also apparently being evaluated for aortic stenosis and possible TAVR for 2019. His utilization specialist name is Dr. Noland. Today, he started having a significant amount of chest pressure and chest pain on the right side of his chest that he describes as a cramping. It started about 9:30 this morning when he had come to a trailer y (more content not included)... Note Patient: JACOB LANDA MRN: ([id number] Age: 63 years Sex: Male : 1955 [...] Pelvis W Contrast Tyshawn Magallanes MD [address] [place] [address] Status Reason Specialty Diagnoses / Procedures Referre d By Contact Referred To Contact Closed Cardiology Diagnoses S/P TAVR (transcatheter aortic valve replacement) Aortic valve stenosis, etiology of cardiac valve disease unspecified Procedures Echo 2D Doppler Color 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 COMPUTER CONSOLE OPERATOR - WILDLIFE CONSERVATION OFFICER [address] [place] [address] Status Reason Specialty Diagnoses / Procedures Referre d By Contact Referred To Contact Closed Cardiology Diagnoses Severe aortic stenosis 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 Essential hypertension Obesity (BMI 30.0-34.9) Procedures ECHO Complete 2D W Doppler W Color 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 APRN - WILDLIFE CONSERVATION OFFICER [address] [address] Specialty Diagnoses / Procedures Referred By Contac t Referred To Contact CT IMAGING Diagnoses Malignant neoplasm of lower third of esophagus (HCC) Pleural effusion Procedures CT CHEST W IVCON DIAGNOSTIC COMPUTED TOMOGRAPHY THORAX W/CONTRAST Mari Akhtar APRN.WILDLIFE CONSERVATION OFFICER [address] [place] [address] Ct Imaging Referral ID Status Reason Start Date Expiration Date V isits Requested Visits Authorized [id number] Closed Auto-Generate d Referral 08/24/2021 09/23/2022 1 1 Specialty Diagnoses / Procedures Referred By Contac t Referred To Contact CT IMAGING Diagnoses Malignant neoplasm of lower third of esophagus (HCC) Procedures CT ABD/PEL W IVCON CT ABD & PELVIS W/CONTRAST Mari Akhtar APRN.WILDLIFE CONSERVATION OFFICER [address] [place] [address] Ct Imaging Referral ID Status Reason Start Date Expiration Date V isits Requested Visits Authorized [id number] Closed Auto-Generate d Referral 08/24/2021 09/23/2022 1 1 Specialty Diagnoses / Procedures Referred By Contac t Referred To Contact CT IMAGING Diagnoses Malignant neoplasm of lower third of esophagus (HCC) Procedures CT CHEST W IVCON DIAGNOSTIC COMPUTED TOMOGRAPHY THORAX W/CONTRAST Richard Jenkins, DO [address] [place] [address] Ct Imaging Referral ID Status Reason Start Date Expiration Date Visits Requested Visits Authorized [id number] Authorized Auto-Generat ed Referral 11/02/2021 12/02/2022 1 1 Specialty Diagnoses / Procedures Referred By Contac t Referred To Contact CT IMAGING Diagnoses Malignant neoplasm of lower third of esophagus (HCC) Procedures CT ABD/PEL W IVCON CT ABD & PELVIS W/CONTRAST Richard Jenkins, DO [address] [place] [address] Ct Imaging Referral ID Status Reason Start Date Expiration Date Visits Requested Visits Authorized [id number] Authorized Auto-Generat ed Referral 11/02/2021 12/02/2022 1 1 Referral ID Status Reason Start Date Expiration Date Visits Requested Visits Authorized [id number] Authorized Auto-Generat ed Referral 08/22/2022 09/21/2023 1 1 Referral ID Status Reason Start Date Expiration Date Visits Requested Visits Authorized [id number] Authorized Auto-Generat ed Referral 08/22/2022 09/21/2023 1 1 Specialty Diagnoses / Procedures Referred By Contac t Referred To Contact CT IMAGING Diagnoses Malignant neoplasm of lower third of esophagus (HCC) Procedures CT CHEST W IVCON DIAGNOSTIC COMPUTED TOMOGRAPHY THORAX W/CONTRAST Richard Jenkins, DO [address] [place] [address] [place] [address] Referral ID Status Reason Start Date Expiration Date V isits Requested Visits Authorized [id number] Closed Auto-Generate d Referral 11/02/2021 12/02/2022 1 1 Specialty Diagnoses / Procedures Referred By Contac t Referred To Contact CT IMAGING Diagnoses Malignant neoplasm of lower third of esophagus (HCC) Procedures CT ABD/PEL W IVCON CT ABD & PELVIS W/CONTRAST Richard Jenkins, DO [address] [place] [address] [place] [address] Referral ID Status Reason Start Date Expiration Date V isits Requested Visits Authorized [id number] Closed Auto-Generate d Referral 11/02/2021 12/02/2022 1 1 Specialty Diagnoses / Procedures Referred By Contac t Referred To Contact CT IMAGING Diagnoses Malignant neoplasm of lower third of esophagus (HCC) Procedures CT CHEST W IVCON DIAGNOSTIC COMPUTED TOMOGRAPHY THORAX W/CONTRAST Mari Akhtar, ADALGISA.WILDLIFE CONSERVATION OFFICER [address] [place] [address] [place] [address] Referral ID Status Reason Start Date Expiration Date V isits Requested Visits Authorized [id number] Closed Auto-Generate d Referral 02/22/2022 03/24/2023 1 1 Specialty Diagnoses / Procedures Referred By Contac t Referred To Contact CT IMAGING Diagnoses Malignant neoplasm of lower third of esophagus (HCC) Procedures CT ABD/PEL W IVCON CT ABD & PELVIS W/CONTRAST Mari Akhtar, ADALGISA.WILDLIFE CONSERVATION OFFICER [address] [place] [address] [place] [address] Referral ID Status Reason Start Date Expiration Date V isits Requested Visits Authorized [id number] Closed Auto-Generate d Referral 02/22/2022 03/24/2023 1 1 Specialty Diagnoses / Procedures Referred By Contac t Referred To Contact MR IMAGING Diagnoses Esophageal adenocarcinoma (HCC) Compression fracture of thoracic vertebra, unspecified thoracic vertebral level, initial encounter (HCC) Procedures MRI THORACIC SPINE WO/W IVCON MRI SPINAL CANAL THORACIC W/O & W/CONTR MATRL Richard Jenkins, DO [address] [place] [address] [place] [address] Referral ID Status Reason Start Date Expiration Date Visits Requested Visits Authorized [id number] Authorized Auto-Generat ed Referral 3 03/22/2024 1 1 Specialty Diagnoses / Procedures Referred By Contac t Referred To Contact [facility] [place] Diagnoses Closed wedge compression fracture of T10 vertebra with routine healing, subsequent encounter Procedures CONSULT TO [facility] OFFICE/OUTPATIENT [facility] 60 MINUTES Richard Jenkins DO [address] [place] [address] Referral ID Status Reason Start Date Expiration Date Visits Requested Visits Authorized [id number] Authorized PCP Requested Referral 06/18/2023 06/17/2024 1 [...] 45 MINS Jesus Manuel Resendiz PA-C [address] [place] [address] [facility] [address] [address] Referral ID Status Reason Start Date Expiration Date Visits Requested Visits Authorized [id number] Authorized PCP Requested Referral Auto-Generate d Referral 07/12/2023 07/11/2024 99 99 Referral ID Status Reason Start Date Expiration Date Visits Requested Visits Authorized [id number] Authorized Auto-Generat ed Referral 07/19/2023 08/17/2024 1 1 Referral ID Status Reason Start Date Expiration Date Visits Requested Visits Authorized [id number] Authorized Auto-Generat ed Referral 07/19/2023 08/17/2024 1 1 Specialty Diagnoses / Procedures Referred By Contac t Referred To Contact MR IMAGING Diagnoses Pathological fracture of thoracic vertebra, initial encounter Procedures MRI THORACIC SPINE WO/W IVCON MRI SPINAL CANAL THORACIC W/O & W/CONTR MATRL Richard Jenkins DO [address] [place] [address] [place] [address] Referral ID Status Reason Start Date Expiration Date Visits Requested Visits Authorized [id number] Authorized Auto-Generat ed Referral 08/10/2023 09/08/2024 1 1 Referral ID Status Reason Start Date Expiration Date V isits Requested Visits Authorized [id number] Closed Auto-Generate d Referral 08/10/2023 09/08/2024 1 1 Specialty Diagnoses / Procedures Referred By Contac t Referred To Contact Endocrinology Diagnoses Mixed hyperlipidemia 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 Procedures CONSULT TO ENDOCRINOLOGY OFFICE/OUTPATIENT [facility] 60 MINUTES Yaw Singh MD [address] [place] [address] Referral ID Status Reason Start Date Expiration Date Visits Requested Visits Authorized [id number] Authorized PCP Requested Referral 10/08/2023 10/07/2024 1 1 Specialty Diagnoses / Procedures Referred By Contac t Referred To Contact MR IMAGING Diagnoses Malignant neoplasm of lower third of esophagus (HCC) Closed wedge compression fracture of T10 vertebra with delayed healing, subsequent encounter Procedures MRI THORACIC SPINE WO/W IVCON MRI SPINAL CANAL THORACIC W/O & W/CONTR MATRL Richard Jenkins, DO [address] [place] [address] [place] [address] Referral ID Status Reason Start Date Expiration Date Visits Requested Visits Authorized [id number] Authorized Auto-Generat ed Referral 05/02/2024 06/01/2025 1 1 Specialty Diagnoses / Procedures Referred By Contac t Referred To Contact CT IMAGING Diagnoses Malignant neoplasm of lower third of esophagus (HCC) Procedures CT ABD/PEL WO IVCON CT ABD & PELVIS W/O CONTRAST Richard Jenkins, DO [address] [place] [address] [place] [address] Referral ID Status Reason Start Date Expiration Date Visits Requested Visits Authorized [id number] Authorized Auto-Generat ed Referral 05/02/2024 06/01/2025 1 1 Specialty Diagnoses / Procedures Referred By Contac t Referred To Contact CT IMAGING Diagnoses Malignant neoplasm of lower third of esophagus (HCC) Procedures CT CHEST WO IVCON DIAGNOSTIC COMPUTED TOMOGRAPHY THORAX W/O CNTRST Richard Jenkins, DO [address] [place] [address] [place] [address] Referral ID Status Reason Start Date Expiration Date Visits Requested Visits Authorized [id number] Authorized Auto-Generat ed Referral 05/02/2024 06/01/2025 1 1 Referral ID Status Reason Start Date Expiration Date V isits Requested Visits Authorized [id number] Closed Auto-Generate d Referral 05/02/2024 06/01/2025 1 1 Discharge Instructions * Instructions* 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, COMPUTER CONSOLE OPERATOR - WILDLIFE CONSERVATION OFFICER - 03/03/2019 - Please call the [facility] with any questions: [phone] -You will have have the following follow [...] es ophagus Atherosclerosis of coronary artery of 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 Hyperlipidemia History of [...] April 1:49pm Atherosclerosis of coronary artery of 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 ([place]) DATE CREATED AUTHOR AUTHOR'S ORGANIZ ATION 05/07/2021 [facility] DATE CREATED AUTHOR AUTHOR'S ORGANIZ ATION 04/10/2023 [facility] DATE CREATED AUTHOR AUTHOR'S ORGANIZ ATION 04/19/2023 [facility] DATE CREATED AUTHOR AUTHOR'S ORGANIZ ATION 02/03/2024 [facility] DATE CREATED AUTHOR AUTHOR'S ORGANIZ ATION 02/14/2025 [facility] DATE CREATED AUTHOR AUTHOR'S ORGANIZ ATION 02/18/2025 [facility] Source Comments (unrecognize d section and content) In the event this informatio n is protected by the Federal Confidentiality of Alcohol and Drug Abuse Patient Records regulations: The Federal rules restrict any use of the information to criminally investigate or prosecute any alcohol or drug abuse patient.[facility] Health AdministrationIn the event this information is protected by the Federal Confidentiality of Alcohol and Drug Abuse Patient Records regulations: The Federal rules restrict any use of the information to criminally investigate or prosecute any alcohol or drug abuse patient.[facility] AdministrationIn the event this information is protected by the Federal Confidentiality of Alcohol and Drug Abuse Patient Records regulations: The Federal rules restrict any use of the information to criminally investigate or prosecute any alcohol or drug abuse patient.[facility] AdministrationIn the event this information is protected by the Federal Confidentiality of Alcohol and Drug Abuse Patient Records regulations: The Federal rules restrict any use of the information to criminally investigate or prosecute any alcohol or drug abuse patient.[facility] AdministrationIn the event this information is protected by the Federal Confidentiality of Alcohol and Drug Abuse Patient Records regulations: The Federal rules restrict any use of the information to criminally investigate or prosecute any alcohol or drug abuse patient.[facility] AdministrationIn the event this information is protected by the Federal Confidentiality of Alcohol and Drug Abuse Patient Records regulations: The Federal rules restrict any use of the information to criminally investigate or prosecute any alcohol or drug abuse patient.[facility] AdministrationIn the event this information is protected by the Federal Confidentiality of Alcohol and Drug Abuse Patient Records regulations: The Federal rules restrict any use of the information to criminally investigate or prosecute any alcohol or drug abuse patient.[facility] AdministrationIn the event this information is protected by the Federal Confidentiality of Alcohol and Drug Abuse Patient Records regulations: The Federal rules restrict any use of the information to criminally investigate or prosecute any alcohol or drug abuse patient.[facility] AdministrationIn the event this information is protected by the Federal Confidentiality of Alcohol and Drug Abuse Patient Records regulations: The Federal rules restrict any use of the information to criminally investigate or prosecute any alcohol or drug abuse patient.[facility] AdministrationIn the event this information is protected by the Federal Confidentiality of Alcohol and Drug Abuse Patient Records regulations: The Federal rules restrict any use of the information to criminally investigate or prosecute any alcohol or drug abuse patient.[facility] AdministrationIn the event this information is protected by the Federal Confidentiality of Alcohol and Drug Abuse Patient Records regulations: The Federal rules restrict any use of the information to criminally investigate or prosecute any alcohol or drug abuse patient.[facility] AdministrationIn the event this information is protected by the Federal Confidentiality of Alcohol and Drug Abuse Patient Records regulations: The Federal rules restrict any use of the information to criminally investigate or prosecute any alcohol or drug abuse patient.[facility] AdministrationIn the event this information is protected by the Federal Confidentiality of Alcohol and Drug Abuse Patient Records regulations: The Federal rules restrict any use of the information to criminally investigate or prosecute any alcohol or drug abuse patient.[facility] AdministrationIn the event this information is protected by the Federal Confidentiality of Alcohol and Drug Abuse Patient Records regulations: The Federal rules restrict any use of the information to criminally investigate or prosecute any alcohol or drug abuse patient.[facility] AdministrationIn the event this information is protected by the Federal Confidentiality of Alcohol and Drug Abuse Patient Records regulations: The Federal rules restrict any use of the information to criminally investigate or prosecute any alcohol or drug abuse patient.[facility] AdministrationIn the event this information is protected by the Federal Confidentiality of Alcohol and Drug Abuse Patient Records regulations: The Federal rules restrict any use of the information to criminally investigate or prosecute any alcohol or drug abuse patient.[facility] AdministrationIn the event this information is protected by the Federal Confidentiality of Alcohol and Drug Abuse Patient Records regulations: The Federal rules restrict any use of the information to criminally investigate or prosecute any alcohol or drug abuse patient.[facility] AdministrationIn the event this information is protected by the Federal Confidentiality of Alcohol and Drug Abuse Patient Records regulations: The Federal rules restrict any use of the information to criminally investigate or prosecute any alcohol or drug abuse patient.[facility] AdministrationIn the event this information is protected by the Federal Confidentiality of Alcohol and Drug Abuse Patient Records regulations: The Federal rules restrict any use of the information to criminally investigate or prosecute any alcohol or drug abuse patient.[facility] AdministrationIn the event this information is protected by the Federal Confidentiality of Alcohol and Drug Abuse Patient Records regulations: The Federal rules restrict any use of the information to criminally investigate or prosecute any alcohol or drug abuse patient.[facility] AdministrationIn the event this information is protected by the Federal Confidentiality of Alcohol and Drug Abuse Patient Records regulations: The Federal rules restrict any use of the information to criminally investigate or prosecute any alcohol or drug abuse patient.[facility] AdministrationIn the event this information is protected by the Federal Confidentiality of Alcohol and Drug Abuse Patient Records regulations: The Federal rules restrict any use of the information to criminally investigate or prosecute any alcohol or drug abuse patient.[facility] AdministrationIn the event this information is protected by the Federal Confidentiality of Alcohol and Drug Abuse Patient Records regulations: The Federal rules restrict any use of the information to criminally investigate or prosecute any alcohol or drug abuse patient.[facility] AdministrationIn the event this information is protected by the Federal Confidentiality of Alcohol and Drug Abuse Patient Records regulations: The Federal rules restrict any use of the information to criminally investigate or prosecute any alcohol or drug abuse patient.[facility] AdministrationIn the event this information is protected by the Federal Confidentiality of Alcohol and Drug Abuse Patient Records regulations: The Federal rules restrict any use of the information to criminally investigate or prosecute any alcohol or drug abuse patient.[facility] AdministrationIn the event this information is protected by the Federal Confidentiality of Alcohol and Drug Abuse Patient Records regulations: The Federal rules restrict any use of the information to criminally investigate or prosecute any alcohol or drug abuse patient.[facility] AdministrationIn the event this information is protected by the Federal Confidentiality of Alcohol and Drug Abuse Patient Records regulations: The Federal rules restrict any use of the information to criminally investigate or prosecute any alcohol or drug abuse patient.[facility] AdministrationIn the event this information is protected by the Federal Confidentiality of Alcohol and Drug Abuse Patient Records regulations: The Federal rules restrict any use of the information to criminally investigate or prosecute any alcohol or drug abuse patient.[facility] AdministrationIn the event this information is protected by the Federal Confidentiality of Alcohol and Drug Abuse Patient Records regulations: The Federal rules restrict any use of the information to criminally investigate or prosecute any alcohol or drug abuse patient.[facility] AdministrationIn the event this information is protected by the Federal Confidentiality of Alcohol and Drug Abuse Patient Records regulations: The Federal rules restrict any use of the information to criminally investigate or prosecute any alcohol or drug abuse patient.[facility] AdministrationIn the event this information is protected by the Federal Confidentiality of Alcohol and Drug Abuse Patient Records regulations: The Federal rules restrict any use of the information to criminally investigate or prosecute any alcohol or drug abuse patient.[facility] AdministrationIn the event this information is protected by the Federal Confidentiality of Alcohol and Drug Abuse Patient Records regulations: The Federal rules restrict any use of the information to criminally investigate or prosecute any alcohol or drug abuse patient.[facility] AdministrationIn the event this information is protected by the Federal Confidentiality of Alcohol and Drug Abuse Patient Records regulations: The Federal rules restrict any use of the information to criminally investigate or prosecute any alcohol or drug abuse patient.[facility] AdministrationIn the event this information is protected by the Federal Confidentiality of Alcohol and Drug Abuse Patient Records regulations: The Federal rules restrict any use of the information to criminally investigate or prosecute any alcohol or drug abuse patient.[facility] AdministrationIn the event this information is protected by the Federal Confidentiality of Alcohol and Drug Abuse Patient Records regulations: The Federal rules restrict any use of the information to criminally investigate or prosecute any alcohol or drug abuse patient.[facility] AdministrationIn the event this information is protected by the Federal Confidentiality of Alcohol and Drug Abuse Patient Records regulations: The Federal rules restrict any use of the information to criminally investigate or prosecute any alcohol or drug abuse patient.[facility] AdministrationIn the event this information is protected by the Federal Confidentiality of Alcohol and Drug Abuse Patient Records regulations: The Federal rules restrict any use of the information to criminally investigate or prosecute any alcohol or drug abuse patient.[facility] AdministrationIn the event this information is protected by the Federal Confidentiality of Alcohol and Drug Abuse Patient Records regulations: The Federal rules restrict any use of the information to criminally investigate or prosecute any alcohol or drug abuse patient.[facility] AdministrationIn the event this information is protected by the Federal Confidentiality of Alcohol and Drug Abuse Patient Records regulations: The Federal rules restrict any use of the information to criminally investigate or prosecute any alcohol or drug abuse patient.[facility] AdministrationIn the event this information is protected by the Federal Confidentiality of Alcohol and Drug Abuse Patient Records regulations: The Federal rules restrict any use of the information to criminally investigate or prosecute any alcohol or drug abuse patient.[facility] AdministrationIn the event this information is protected by the Federal Confidentiality of Alcohol and Drug Abuse Patient Records regulations: The Federal rules restrict any use of the information to criminally investigate or prosecute any alcohol or drug abuse patient.[facility] AdministrationIn the event this information is protected by the Federal Confidentiality of Alcohol and Drug Abuse Patient Records regulations: The Federal rules restrict any use of the information to criminally investigate or prosecute any alcohol or drug abuse patient.[facility] AdministrationIn the event this information is protected by the Federal Confidentiality of Alcohol and Drug Abuse Patient Records regulations: The Federal rules restrict any use of the information to criminally investigate or prosecute any alcohol or drug abuse patient.[facility] AdministrationIn the event this information is protected by the Federal Confidentiality of Alcohol and Drug Abuse Patient Records regulations: The Federal rules restrict any use of the information to criminally investigate or prosecute any alcohol or drug abuse patient.[facility] AdministrationIn the event this information is protected by the Federal Confidentiality of Alcohol and Drug Abuse Patient Records regulations: The Federal rules restrict any use of the information to criminally investigate or prosecute any alcohol or drug abuse patient.[facility] AdministrationIn the event this information is protected by the Federal Confidentiality of Alcohol and Drug Abuse Patient Records regulations: The Federal rules restrict any use of the information to criminally investigate or prosecute any alcohol or drug abuse patient.[facility] AdministrationIn the event this information is protected by the Federal Confidentiality of Alcohol and Drug Abuse Patient Records regulations: The Federal rules restrict any use of the information to criminally investigate or prosecute any alcohol or drug abuse patient.[facility] AdministrationIn the event this information is protected by the Federal Confidentiality of Alcohol and Drug Abuse Patient Records regulations: The Federal rules restrict any use of the information to criminally investigate or prosecute any alcohol or drug abuse patient.[facility] AdministrationIn the event this information is protected by the Federal Confidentiality of Alcohol and Drug Abuse Patient Records regulations: The Federal rules restrict any use of the information to criminally investigate or prosecute any alcohol or drug abuse patient.[facility] AdministrationIn the event this information is protected by the Federal Confidentiality of Alcohol and Drug Abuse Patient Records regulations: The Federal rules restrict any use of the information to criminally investigate or prosecute any alcohol or drug abuse patient.[facility] AdministrationIn the event this information is protected by the Federal Confidentiality of Alcohol and Drug Abuse Patient Records regulations: The Federal rules restrict any use of the information to criminally investigate or prosecute any alcohol or drug abuse patient.[facility] AdministrationIn the event this information is protected by the Federal Confidentiality of Alcohol and Drug Abuse Patient Records regulations: The Federal rules restrict any use of the information to criminally investigate or prosecute any alcohol or drug abuse patient.[facility] AdministrationIn the event this information is protected by the Federal Confidentiality of Alcohol and Drug Abuse Patient Records regulations: The Federal rules restrict any use of the information to criminally investigate or prosecute any alcohol or drug abuse patient.[facility] AdministrationIn the event this information is protected by the Federal Confidentiality of Alcohol and Drug Abuse Patient Records regulations: The Federal rules restrict any use of the information to criminally investigate or prosecute any alcohol or drug abuse patient.[facility] AdministrationIn the event this information is protected by the Federal Confidentiality of Alcohol and Drug Abuse Patient Records regulations: The Federal rules restrict any use of the information to criminally investigate or prosecute any alcohol or drug abuse patient.[facility] AdministrationIn the event this information is protected by the Federal Confidentiality of Alcohol and Drug Abuse Patient Records regulations: The Federal rules restrict any use of the information to criminally investigate or prosecute any alcohol or drug abuse patient.[facility] AdministrationIn the event this information is protected by the Federal Confidentiality of Alcohol and Drug Abuse Patient Records regulations: The Federal rules restrict any use of the information to criminally investigate or prosecute any alcohol or drug abuse patient.[facility] AdministrationIn the event this information is protected by the Federal Confidentiality of Alcohol and Drug Abuse Patient Records regulations: The Federal rules restrict any use of the information to criminally investigate or prosecute any alcohol or drug abuse patient.[facility] AdministrationIn the event this information is protected by the Federal Confidentiality of Alcohol and Drug Abuse Patient Records regulations: The Federal rules restrict any use of the information to criminally investigate or prosecute any alcohol or drug abuse patient.[facility] AdministrationIn the event this information is protected by the Federal Confidentiality of Alcohol and Drug Abuse Patient Records regulations: The Federal rules restrict any use of the information to criminally investigate or prosecute any alcohol or drug abuse patient.[facility] AdministrationIn the event this information is protected by the Federal Confidentiality of Alcohol and Drug Abuse Patient Records regulations: The Federal rules restrict any use of the information to criminally investigate or prosecute any alcohol or drug abuse patient.[facility] AdministrationIn the event this information is protected by the Federal Confidentiality of Alcohol and Drug Abuse Patient Records regulations: The Federal rules restrict any use of the information to criminally investigate or prosecute any alcohol or drug abuse patient.[facility] AdministrationIn the event this information is protected by the Federal Confidentiality of Alcohol and Drug Abuse Patient Records regulations: The Federal rules restrict any use of the information to criminally investigate or prosecute any alcohol or drug abuse patient.[facility] AdministrationIn the event this information is protected by the Federal Confidentiality of Alcohol and Drug Abuse Patient Records regulations: The Federal rules restrict any use of the information to criminally investigate or prosecute any alcohol or drug abuse patient.[facility] AdministrationIn the event this information is protected by the Federal Confidentiality of Alcohol and Drug Abuse Patient Records regulations: The Federal rules restrict any use of the information to criminally investigate or prosecute any alcohol or drug abuse patient.[facility] AdministrationIn the event this information is protected by the Federal Confidentiality of Alcohol and Drug Abuse Patient Records regulations: The Federal rules restrict any use of the information to criminally investigate or prosecute any alcohol or drug abuse patient.[facility] AdministrationIn the event this information is protected by the Federal Confidentiality of Alcohol and Drug Abuse Patient Records regulations: The Federal rules restrict any use of the information to criminally investigate or prosecute any alcohol or drug abuse patient.[facility] AdministrationIn the event this information is protected by the Federal Confidentiality of Alcohol and Drug Abuse Patient Records regulations: The Federal rules restrict any use of the information to criminally investigate or prosecute any alcohol or drug abuse patient.[facility] AdministrationIn the event this information is protected by the Federal Confidentiality of Alcohol and Drug Abuse Patient Records regulations: The Federal rules restrict any use of the information to criminally investigate or prosecute any alcohol or drug abuse patient.[facility] AdministrationIn the event this information is protected by the Federal Confidentiality of Alcohol and Drug Abuse Patient Records regulations: The Federal rules restrict any use of the information to criminally investigate or prosecute any alcohol or drug abuse patient.[facility] AdministrationIn the event this information is protected by the Federal Confidentiality of Alcohol and Drug Abuse Patient Records regulations: The Federal rules restrict any use of the information to criminally investigate or prosecute any alcohol or drug abuse patient.[facility] AdministrationIn the event this information is protected by the Federal Confidentiality of Alcohol and Drug Abuse Patient Records regulations: The Federal rules restrict any use of the information to criminally investigate or prosecute any alcohol or drug abuse patient.[facility] AdministrationIn the event this information is protected by the Federal Confidentiality of Alcohol and Drug Abuse Patient Records regulations: The Federal rules restrict any use of the information to criminally investigate or prosecute any alcohol or drug abuse patient.[facility] AdministrationIn the event this information is protected by the Federal Confidentiality of Alcohol and Drug Abuse Patient Records regulations: The Federal rules restrict any use of the information to criminally investigate or prosecute any alcohol or drug abuse patient.[facility] AdministrationIn the event this information is protected by the Federal Confidentiality of Alcohol and Drug Abuse Patient Records regulations: The Federal rules restrict any use of the information to criminally investigate or prosecute any alcohol or drug abuse patient.[facility] AdministrationIn the event this information is protected by the Federal Confidentiality of Alcohol and Drug Abuse Patient Records regulations: The Federal rules restrict any use of the information to criminally investigate or prosecute any alcohol or drug abuse patient.[facility] AdministrationIn the event this information is protected by the Federal Confidentiality of Alcohol and Drug Abuse Patient Records regulations: The Federal rules restrict any use of the information to criminally investigate or prosecute any alcohol or drug abuse patient.[facility] AdministrationIn the event this information is protected by the Federal Confidentiality of Alcohol and Drug Abuse Patient Records regulations: The Federal rules restrict any use of the information to criminally investigate or prosecute any alcohol or drug abuse patient.[facility] AdministrationIn the event this information is protected by the Federal Confidentiality of Alcohol and Drug Abuse Patient Records regulations: The Federal rules restrict any use of the information to criminally investigate or prosecute any alcohol or drug abuse patient.[facility] AdministrationIn the event this information is protected by the Federal Confidentiality of Alcohol and Drug Abuse Patient Records regulations: The Federal rules restrict any use of the information to criminally investigate or prosecute any alcohol or drug abuse patient.[facility] AdministrationIn the event this information is protected by the Federal Confidentiality of Alcohol and Drug Abuse Patient Records regulations: The Federal rules restrict any use of the information to criminally investigate or prosecute any alcohol or drug abuse patient.[facility] AdministrationIn the event this information is protected by the Federal Confidentiality of Alcohol and Drug Abuse Patient Records regulations: The Federal rules restrict any use of the information to criminally investigate or prosecute any alcohol or drug abuse patient.[facility] AdministrationIn the event this information is protected by the Federal Confidentiality of Alcohol and Drug Abuse Patient Records regulations: The Federal rules restrict any use of the information to criminally investigate or prosecute any alcohol or drug abuse patient.[facility] AdministrationIn the event this information is protected by the Federal Confidentiality of Alcohol and Drug Abuse Patient Records regulations: The Federal rules restrict any use of the information to criminally investigate or prosecute any alcohol or drug abuse patient.[facility] AdministrationIn the event this information is protected by the Federal Confidentiality of Alcohol and Drug Abuse Patient Records regulations: The Federal rules restrict any use of the information to criminally investigate or prosecute any alcohol or drug abuse patient.[facility] AdministrationIn the event this information is protected by the Federal Confidentiality of Alcohol and Drug Abuse Patient Records regulations: The Federal rules restrict any use of the information to criminally investigate or prosecute any alcohol or drug abuse patient.[facility] AdministrationIn the event this information is protected by the Federal Confidentiality of Alcohol and Drug Abuse Patient Records regulations: The Federal rules restrict any use of the information to criminally investigate or prosecute any alcohol or drug abuse patient.[facility] AdministrationIn the event this information is protected by the Federal Confidentiality of Alcohol and Drug Abuse Patient Records regulations: The Federal rules restrict any use of the information to criminally investigate or prosecute any alcohol or drug abuse patient.[facility]In the event this information is protected by the Federal Confidentiality of Alcohol and Drug Abuse Patient Records regulations: The Federal rules restrict any use of the information to criminally investigate or prosecute any alcohol or drug abuse patient.[facility] AdministrationIn the event this information is protected by the Federal Confidentiality of Alcohol and Drug Abuse Patient Records regulations: The Federal rules restrict any use of the information to criminally investigate or prosecute any alcohol or drug abuse patient.[facility] AdministrationIn the event this information is protected by the Federal Confidentiality of Alcohol and Drug Abuse Patient Records regulations: The Federal rules restrict any use of the information to criminally investigate or prosecute any alcohol or drug abuse patient.[facility]In the event this information is protected by the Federal Confidentiality of Alcohol and Drug Abuse Patient Records regulations: The Federal rules restrict any use of the information to criminally investigate or prosecute any alcohol or drug abuse patient.[facility] AdministrationIn the event this information is protected by the Federal Confidentiality of Alcohol and Drug Abuse Patient Records regulations: The Federal rules restrict any use of the information to criminally investigate or prosecute any alcohol or drug abuse patient.[facility] AdministrationIn the event this information is protected by the Federal Confidentiality of Alcohol and Drug Abuse Patient Records regulations: The Federal rules restrict any use of the information to criminally investigate or prosecute any alcohol or drug abuse patient.[facility] AdministrationIn the event this information is protected by the Federal Confidentiality of Alcohol and Drug Abuse Patient Records regulations: The Federal rules restrict any use of the information to criminally investigate or prosecute any alcohol or drug abuse patient.[facility] AdministrationIn the event this information is protected by the Federal Confidentiality of Alcohol and Drug Abuse Patient Records regulations: The Federal rules restrict any use of the information to criminally investigate or prosecute any alcohol or drug abuse patient.[facility] AdministrationIn the event this information is protected by the Federal Confidentiality of Alcohol and Drug Abuse Patient Records regulations: The Federal rules restrict any use of the information to criminally investigate or prosecute any alcohol or drug abuse patient.[facility]In the event this information is protected by the Federal Confidentiality of Alcohol and Drug Abuse Patient Records regulations: The Federal rules restrict any use of the information to criminally investigate or prosecute any alcohol or drug abuse patient.[facility] AdministrationIn the event this information is protected by the Federal Confidentiality of Alcohol and Drug Abuse Patient Records regulations: The Federal rules restrict any use of the information to criminally investigate or prosecute any alcohol or drug abuse patient.[facility]In the event this information is protected by the Federal Confidentiality of Alcohol and Drug Abuse Patient Records regulations: The Federal rules restrict any use of the information to criminally investigate or prosecute any alcohol or drug abuse patient.[facility] AdministrationIn the event this information is protected by the Federal Confidentiality of Alcohol and Drug Abuse Patient Records regulations: The Federal rules restrict any use of the information to criminally investigate or prosecute any alcohol or drug abuse patient.[facility] AdministrationIn the event this information is protected by the Federal Confidentiality of Alcohol and Drug Abuse Patient Records regulations: The Federal rules restrict any use of the information to criminally investigate or prosecute any alcohol or drug abuse patient.[facility]In the event this information is protected by the Federal Confidentiality of Alcohol and Drug Abuse Patient Records regulations: The Federal rules restrict any use of the information to criminally investigate or prosecute any alcohol or drug abuse patient.[facility] AdministrationIn the event this information is protected by the Federal Confidentiality of Alcohol and Drug Abuse Patient Records regulations: The Federal rules restrict any use of the information to criminally investigate or prosecute any alcohol or drug abuse patient.[facility]In the event this information is protected by the Federal Confidentiality of Alcohol and Drug Abuse Patient Records regulations: The Federal rules restrict any use of the information to criminally investigate or prosecute any alcohol or drug abuse patient.[facility]In the event this information is protected by the Federal Confidentiality of Alcohol and Drug Abuse Patient Records regulations: The Federal rules restrict any use of the information to criminally investigate or prosecute any alcohol or drug abuse patient.[facility]In the event this information is protected by the Federal Confidentiality of Alcohol and Drug Abuse Patient Records regulations: The Federal rules restrict any use of the information to criminally investigate or prosecute any alcohol or drug abuse patient.[facility]In the event this information is protected by the Federal Confidentiality of Alcohol and Drug Abuse Patient Records regulations: The Federal rules restrict any use of the information to criminally investigate or prosecute any alcohol or drug abuse patient.[facility]In the event this information is protected by the Federal Confidentiality of Alcohol and Drug Abuse Patient Records regulations: The Federal rules restrict any use of the information to criminally investigate or prosecute any alcohol or drug abuse patient.[facility] AdministrationIn the event this information is protected by the Federal Confidentiality of Alcohol and Drug Abuse Patient Records regulations: The Federal rules restrict any use of the information to criminally investigate or prosecute any alcohol or drug abuse patient.[facility]In the event this information is protected by the Federal Confidentiality of Alcohol and Drug Abuse Patient Records regulations: The Federal rules restrict any use of the information to criminally investigate or prosecute any alcohol or drug abuse patient.[facility]In the event this information is protected by the Federal Confidentiality of Alcohol and Drug Abuse Patient Records regulations: The Federal rules restrict any use of the information to criminally investigate or prosecute any alcohol or drug abuse patient.[facility]In the event this information is protected by the Federal Confidentiality of Alcohol and Drug Abuse Patient Records regulations: The Federal rules restrict any use of the information to criminally investigate or prosecute any alcohol or drug abuse patient.[facility]In the event this information is protected by the Federal Confidentiality of Alcohol and Drug Abuse Patient Records regulations: The Federal rules restrict any use of the information to criminally investigate or prosecute any alcohol or drug abuse patient.[facility] AdministrationIn the event this information is protected by the Federal Confidentiality of Alcohol and Drug Abuse Patient Records regulations: The Federal rules restrict any use of the information to criminally investigate or prosecute any alcohol or drug abuse patient.[facility] AdministrationIn the event this information is protected by the Federal Confidentiality of Alcohol and Drug Abuse Patient Records regulations: The Federal rules restrict any use of the information to criminally investigate or prosecute any alcohol or drug abuse patient.[facility] AdministrationIn the event this information is protected by the Federal Confidentiality of Alcohol and Drug Abuse Patient Records regulations: The Federal rules restrict any use of the information to criminally investigate or prosecute any alcohol or drug abuse patient.[facility] AdministrationIn the event this information is protected by the Federal Confidentiality of Alcohol and Drug Abuse Patient Records regulations: The Federal rules restrict any use of the information to criminally investigate or prosecute any alcohol or drug abuse patient.[facility] AdministrationIn the event this information is protected by the Federal Confidentiality of Alcohol and Drug Abuse Patient Records regulations: The Federal rules restrict any use of the information to criminally investigate or prosecute any alcohol or drug abuse patient.[facility] AdministrationIn the event this information is protected by the Federal Confidentiality of Alcohol and Drug Abuse Patient Records regulations: The Federal rules restrict any use of the information to criminally investigate or prosecute any alcohol or drug abuse patient.[facility] AdministrationIn the event this information is protected by the Federal Confidentiality of Alcohol and Drug Abuse Patient Records regulations: The Federal rules restrict any use of the information to criminally investigate or prosecute any alcohol or drug abuse patient.[facility] AdministrationIn the event this information is protected by the Federal Confidentiality of Alcohol and Drug Abuse Patient Records regulations: The Federal rules restrict any use of the information to criminally investigate or prosecute any alcohol or drug abuse patient.[facility] AdministrationIn the event this information is protected by the Federal Confidentiality of Alcohol and Drug Abuse Patient Records regulations: The Federal rules restrict any use of the information to criminally investigate or prosecute any alcohol or drug abuse patient.[facility] AdministrationIn the event this information is protected by the Federal Confidentiality of Alcohol and Drug Abuse Patient Records regulations: The Federal rules restrict any use of the information to criminally investigate or prosecute any alcohol or drug abuse patient.[facility] AdministrationIn the event this information is protected by the Federal Confidentiality of Alcohol and Drug Abuse Patient Records regulations: The Federal rules restrict any use of the information to criminally investigate or prosecute any alcohol or drug abuse patient.[facility] AdministrationIn the event this information is protected by the Federal Confidentiality of Alcohol and Drug Abuse Patient Records regulations: The Federal rules restrict any use of the information to criminally investigate or prosecute any alcohol or drug abuse patient.[facility] AdministrationIn the event this information is protected by the Federal Confidentiality of Alcohol and Drug Abuse Patient Records regulations: The Federal rules restrict any use of the information to criminally investigate or prosecute any alcohol or drug abuse patient.[facility] AdministrationIn the event this information is protected by the Federal Confidentiality of Alcohol and Drug Abuse Patient Records regulations: The Federal rules restrict any use of the information to criminally investigate or prosecute any alcohol or drug abuse patient.[facility] AdministrationIn the event this information is protected by the Federal Confidentiality of Alcohol and Drug Abuse Patient Records regulations: The Federal rules restrict any use of the information to criminally investigate or prosecute any alcohol or drug abuse patient.[facility] AdministrationIn the event this information is protected by the Federal Confidentiality of Alcohol and Drug Abuse Patient Records regulations: The Federal rules restrict any use of the information to criminally investigate or prosecute any alcohol or drug abuse patient.[facility] AdministrationIn the event this information is protected by the Federal Confidentiality of Alcohol and Drug Abuse Patient Records regulations: The Federal rules restrict any use of the information to criminally investigate or prosecute any alcohol or drug abuse patient.[facility] AdministrationIn the event this information is protected by the Federal Confidentiality of Alcohol and Drug Abuse Patient Records regulations: The Federal rules restrict any use of the information to criminally investigate or prosecute any alcohol or drug abuse patient.[facility] AdministrationIn the event this information is protected by the Federal Confidentiality of Alcohol and Drug Abuse Patient Records regulations: The Federal rules restrict any use of the information to criminally investigate or prosecute any alcohol or drug abuse patient.[facility] AdministrationIn the event this information is protected by the Federal Confidentiality of Alcohol and Drug Abuse Patient Records regulations: The Federal rules restrict any use of the information to criminally investigate or prosecute any alcohol or drug abuse patient.[facility] AdministrationIn the event this information is protected by the Federal Confidentiality of Alcohol and Drug Abuse Patient Records regulations: The Federal rules restrict any use of the information to criminally investigate or prosecute any alcohol or drug abuse patient.[facility] AdministrationIn the event this information is protected by the Federal Confidentiality of Alcohol and Drug Abuse Patient Records regulations: The Federal rules restrict any use of the information to criminally investigate or prosecute any alcohol or drug abuse patient.[facility] AdministrationIn the event this information is protected by the Federal Confidentiality of Alcohol and Drug Abuse Patient Records regulations: The Federal rules restrict any use of the information to criminally investigate or prosecute any alcohol or drug abuse patient.[facility] AdministrationIn the event this information is protected by the Federal Confidentiality of Alcohol and Drug Abuse Patient Records regulations: The Federal rules restrict any use of the information to criminally investigate or prosecute any alcohol or drug abuse patient.[facility] AdministrationIn the event this information is protected by the Federal Confidentiality of Alcohol and Drug Abuse Patient Records regulations: The Federal rules restrict any use of the information to criminally investigate or prosecute any alcohol or drug abuse patient.[facility] AdministrationIn the event this information is protected by the Federal Confidentiality of Alcohol and Drug Abuse Patient Records regulations: The Federal rules restrict any use of the information to criminally investigate or prosecute any alcohol or drug abuse patient.[facility] AdministrationIn the event this information is protected by the Federal Confidentiality of Alcohol and Drug Abuse Patient Records regulations: The Federal rules restrict any use of the information to criminally investigate or prosecute any alcohol or drug abuse patient.[facility] AdministrationIn the event this information is protected by the Federal Confidentiality of Alcohol and Drug Abuse Patient Records regulations: The Federal rules restrict any use of the information to criminally investigate or prosecute any alcohol or drug abuse patient.[facility] AdministrationIn the event this information is protected by the Federal Confidentiality of Alcohol and Drug Abuse Patient Records regulations: The Federal rules restrict any use of the information to criminally investigate or prosecute any alcohol or drug abuse patient.[facility] AdministrationIn the event this information is protected by the Federal Confidentiality of Alcohol and Drug Abuse Patient Records regulations: The Federal rules restrict any use of the information to criminally investigate or prosecute any alcohol or drug abuse patient.[facility] AdministrationIn the event this information is protected by the Federal Confidentiality of Alcohol and Drug Abuse Patient Records regulations: The Federal rules restrict any use of the information to criminally investigate or prosecute any alcohol or drug abuse patient.[facility] AdministrationIn the event this information is protected by the Federal Confidentiality of Alcohol and Drug Abuse Patient Records regulations: The Federal rules restrict any use of the information to criminally investigate or prosecute any alcohol or drug abuse patient.[facility] AdministrationIn the event this information is protected by the Federal Confidentiality of Alcohol and Drug Abuse Patient Records regulations: The Federal rules restrict any use of the information to criminally investigate or prosecute any alcohol or drug abuse patient.[facility] AdministrationIn the event this information is protected by the Federal Confidentiality of Alcohol and Drug Abuse Patient Records regulations: The Federal rules restrict any use of the information to criminally investigate or prosecute any alcohol or drug abuse patient.[facility] AdministrationIn the event this information is protected by the Federal Confidentiality of Alcohol and Drug Abuse Patient Records regulations: The Federal rules restrict any use of the information to criminally investigate or prosecute any alcohol or drug abuse patient.[facility] AdministrationIn the event this information is protected by the Federal Confidentiality of Alcohol and Drug Abuse Patient Records regulations: The Federal rules restrict any use of the information to criminally investigate or prosecute any alcohol or drug abuse patient.[facility] AdministrationIn the event this information is protected by the Federal Confidentiality of Alcohol and Drug Abuse Patient Records regulations: The Federal rules restrict any use of the information to criminally investigate or prosecute any alcohol or drug abuse patient.[facility] AdministrationIn the event this information is protected by the Federal Confidentiality of Alcohol and Drug Abuse Patient Records regulations: The Federal rules restrict any use of the information to criminally investigate or prosecute any alcohol or drug abuse patient.[facility] AdministrationIn the event this information is protected by the Federal Confidentiality of Alcohol and Drug Abuse Patient Records regulations: The Federal rules restrict any use of the information to criminally investigate or prosecute any alcohol or drug abuse patient.[facility] AdministrationIn the event this information is protected by the Federal Confidentiality of Alcohol and Drug Abuse Patient Records regulations: The Federal rules restrict any use of the information to criminally investigate or prosecute any alcohol or drug abuse patient.[facility] AdministrationIn the event this information is protected by the Federal Confidentiality of Alcohol and Drug Abuse Patient Records regulations: The Federal rules restrict any use of the information to criminally investigate or prosecute any alcohol or drug abuse patient.[facility] AdministrationIn the event this information is protected by the Federal Confidentiality of Alcohol and Drug Abuse Patient Records regulations: The Federal rules restrict any use of the information to criminally investigate or prosecute any alcohol or drug abuse patient.[facility] AdministrationIn the event this information is protected by the Federal Confidentiality of Alcohol and Drug Abuse Patient Records regulations: The Federal rules restrict any use of the information to criminally investigate or prosecute any alcohol or drug abuse patient.[facility] AdministrationIn the event this information is protected by the Federal Confidentiality of Alcohol and Drug Abuse Patient Records regulations: The Federal rules restrict any use of the information to criminally investigate or prosecute any alcohol or drug abuse patient.[facility] AdministrationIn the event this information is protected by the Federal Confidentiality of Alcohol and Drug Abuse Patient Records regulations: The Federal rules restrict any use of the information to criminally investigate or prosecute any alcohol or drug abuse patient.[facility] AdministrationIn the event this information is protected by the Federal Confidentiality of Alcohol and Drug Abuse Patient Records regulations: The Federal rules restrict any use of the information to criminally investigate or prosecute any alcohol or drug abuse patient.[facility] AdministrationIn the event this information is protected by the Federal Confidentiality of Alcohol and Drug Abuse Patient Records regulations: The Federal rules restrict any use of the information to criminally investigate or prosecute any alcohol or drug abuse patient.[facility] AdministrationIn the event this information is protected by the Federal Confidentiality of Alcohol and Drug Abuse Patient Records regulations: The Federal rules restrict any use of the information to criminally investigate or prosecute any alcohol or drug abuse patient.[facility] AdministrationIn the event this information is protected by the Federal Confidentiality of Alcohol and Drug Abuse Patient Records regulations: The Federal rules restrict any use of the information to criminally investigate or prosecute any alcohol or drug abuse patient.[facility] AdministrationIn the event this information is protected by the Federal Confidentiality of Alcohol and Drug Abuse Patient Records regulations: The Federal rules restrict any use of the information to criminally investigate or prosecute any alcohol or drug abuse patient.[facility] AdministrationIn the event this information is protected by the Federal Confidentiality of Alcohol and Drug Abuse Patient Records regulations: The Federal rules restrict any use of the information to criminally investigate or prosecute any alcohol or drug abuse patient.[facility] AdministrationIn the event this information is protected by the Federal Confidentiality of Alcohol and Drug Abuse Patient Records regulations: The Federal rules restrict any use of the information to criminally investigate or prosecute any alcohol or drug abuse patient.[facility] AdministrationIn the event this information is protected by the Federal Confidentiality of Alcohol and Drug Abuse Patient Records regulations: The Federal rules restrict any use of the information to criminally investigate or prosecute any alcohol or drug abuse patient.[facility] AdministrationIn the event this information is protected by the Federal Confidentiality of Alcohol and Drug Abuse Patient Records regulations: The Federal rules restrict any use of the information to criminally investigate or prosecute any alcohol or drug abuse patient.[facility] AdministrationIn the event this information is protected by the Federal Confidentiality of Alcohol and Drug Abuse Patient Records regulations: The Federal rules restrict any use of the information to criminally investigate or prosecute any alcohol or drug abuse patient.[facility] AdministrationIn the event this information is protected by the Federal Confidentiality of Alcohol and Drug Abuse Patient Records regulations: The Federal rules restrict any use of the information to criminally investigate or prosecute any alcohol or drug abuse patient.[facility] AdministrationIn the event this information is protected by the Federal Confidentiality of Alcohol and Drug Abuse Patient Records regulations: The Federal rules restrict any use of the information to criminally investigate or prosecute any alcohol or drug abuse patient.[facility] AdministrationIn the event this information is protected by the Federal Confidentiality of Alcohol and Drug Abuse Patient Records regulations: The Federal rules restrict any use of the information to criminally investigate or prosecute any alcohol or drug abuse patient.[facility] AdministrationIn the event this information is protected by the Federal Confidentiality of Alcohol and Drug Abuse Patient Records regulations: The Federal rules restrict any use of the information to criminally investigate or prosecute any alcohol or drug abuse patient.[facility] AdministrationIn the event this information is protected by the Federal Confidentiality of Alcohol and Drug Abuse Patient Records regulations: The Federal rules restrict any use of the information to criminally investigate or prosecute any alcohol or drug abuse patient.[facility] Reason for Visit (unrecogniz ed section and [...] 45 MINS Jesus Manuel Resendiz PA-C [address] [place] [address] Pt [facility] [address] [place] [address] Referral ID Status Reason Start Date Expiration Date Visits Requested Visits Authorized [id number] Authorized PCP Requested Referral Auto-Generate d Referral 07/12/2023 07/11/2024 99 99 Reason Comments Established Patient Reason Comments Results Reason Comments Chemotherapy Treatment Specialty Diagnoses / Procedures Referred By Contac t Referred To Contact Diagnoses Malignant neoplasm of lower third of esophagus (HCC) Esophageal adenocarcinoma (HCC) Richard Jenkins, DO [address] [facility] [place] [place] [address] [facility] [address] [place] [address] Referral ID Status Reason Start Date Expiration Date V isits Requested Visits Authorized [id number] Authorized 07/14/2021 10/12/2021 99 99 Specialty Diagnoses / Procedures Referred By Contac t Referred To Contact Diagnoses Malignant neoplasm of lower third of esophagus (HCC) Esophageal adenocarcinoma (HCC) Richard Jenkins, DO [address] [facility] [place] [address] [facility] [address] [place] [address] Reason Comments Results Add T4 Specialty Diagnoses / Procedures Referred By Contac t Referred To Contact CT IMAGING Diagnoses Malignant neoplasm of lower third of esophagus (HCC) Pleural effusion Procedures CT CHEST W IVCON DIAGNOSTIC COMPUTED TOMOGRAPHY THORAX W/CONTRAST Mari Akhtar, COMPUTER CONSOLE OPERATOR.WILDLIFE CONSERVATION OFFICER [address] [place] [address] Ct Imaging Referral ID Status Reason Start Date Expiration Date V isits Requested Visits Authorized [id number] Closed Auto-Generate d Referral 08/24/2021 09/23/2022 1 [...] THORAX W/CONTRAST Richard Jenkins, DO [address] [place] [address] [place] [address] Referral ID Status Reason Start Date Expiration Date V isits Requested Visits Authorized [id number] Closed Auto-Generate d Referral 11/02/2021 12/02/2022 1 1 Specialty Diagnoses / Procedures Referred By Contac t Referred To Contact CT IMAGING Diagnoses Malignant neoplasm of lower third of esophagus (HCC) Procedures CT CHEST W IVCON DIAGNOSTIC COMPUTED TOMOGRAPHY THORAX W/CONTRAST Mari Akhtar, ADALGISA.WILDLIFE CONSERVATION OFFICER [address] [place] [address] [place] [address] Referral ID Status Reason Start Date Expiration Date V isits Requested Visits Authorized [id number] Closed Auto-Generate d Referral 02/22/2022 03/24/2023 [address] Specialty Diagnoses / Procedures Referred By Contac t Referred To Contact CT IMAGING Diagnoses Malignant neoplasm of lower third of esophagus (HCC) Procedures CT CHEST W IVCON DIAGNOSTIC COMPUTED TOMOGRAPHY THORAX W/CONTRAST Richard Jenkins, DO [address] [facility] [place] [address] [place] [address] Referral ID Status Reason Start Date Expiration Date V isits Requested Visits Authorized [id number] Closed Auto-Generate d Referral 08/22/2022 09/21/2023 1 [...] INC GB W/PHARMA INTERVENJ Usha Mcgovern PA-C [address] [place] [address] [facility] [address] [place] [address] Referral ID Status Reason Start Date Expiration Date V isits Requested Visits Authorized [id number] Closed Auto-Generate d Referral 06/19/2023 07/18/2024 1 1 Reason Comments Radiology US Specialty Diagnoses / Procedures Referred By Contac t Referred To Contact US IMAGING Diagnoses RUQ pain Nausea Procedures US ABD RIGHT UPPER QUADRANT US ABDOMINAL REAL TIME W/IMAGE LIMITED Usha Mcgovern PA-C [address] [place] [address] Us [facility] [place] [address] Referral ID Status Reason Start Date Expiration Date V isits Requested Visits Authorized [id number] Closed Auto-Generate d Referral 06/19/2023 07/18/2024 1 1 Reason Comments New Patient Low Back Pain Back Pain middle Back Pain (Upper Back) Specialty Diagnoses / Procedures Referred By Contac t Referred To Contact [facility] [place] Diagnoses Closed wedge compression fracture of T10 vertebra with routine healing, subsequent encounter Procedures [facility] TO [facility] OFFICE/OUTPATIENT NEW HIGH MDM 60 MINUTES Richard Jenkins, DO [address] [place] [address] Referral ID Status Reason Start Date Expiration Date V isits Requested Visits Authorized [id number] Closed PCP Requested Referral 06/18/2023 06/17/2024 1 1 Reason Comments Patient Question Reason Comments PT Eval Specialty Diagnoses / Procedures Referred By Contac t Referred To Contact CT IMAGING Diagnoses Malignant neoplasm of lower third of esophagus (HCC) Procedures CT ABD/PEL W IVCON CT ABD & PELVIS W/CONTRAST Richard Jenkins DO [address] [place] [address] [place] [address] Referral ID Status Reason Start Date Expiration Date V isits Requested Visits Authorized [id number] Closed Auto-Generate d Referral 07/19/2023 08/17/2024 1 1 Specialty Diagnoses / Procedures Referred By Contac t Referred To Contact CT IMAGING Diagnoses Malignant neoplasm of lower third of esophagus (HCC) Procedures CT ABD/PEL W IVCON CT ABD & PELVIS W/CONTRAST Richard Jenkins, DO [address] [place] [address] [place] [address] Reason Comments AVS 08/10/23 Reason Comments Established Patient Specialty Diagnoses / Procedures Referred By Contac t Referred To Contact MR IMAGING Diagnoses Pathological fracture of thoracic vertebra, initial encounter Procedures MRI THORACIC SPINE WO/W IVCON MRI SPINAL CANAL THORACIC W/O & W/CONTR MATRL Richard Jenkins, DO [address] [place] [address] [place] [address] Referral ID Status Reason Start Date Expiration Date V isits Requested Visits Authorized [id number] Closed Auto-Generate d Referral 08/10/2023 09/08/2024 1 1 Reason Comments ER F/U [facility] ER 09/10/23 Reason Comments Patient Update Reason Comments Biopsy Request Bone Biopsy Reason Comments F/U 6 months Reason Comments Results Reason Comments Shortness of Breath Chronic pleural effu murray Reason Comments Hospital F/U [facility] Reason Comments Consult External consult [facility] admitted Reason Comments Outside EGD Reason Comments Hospital Admission [facility] Reason Comments Outside H&P Outside Nephrology [...] Richard Jenkins, DO [address] [place] [address] [place] [address] Referral ID Status Reason Start Date Expiration Date V isits Requested Visits Authorized [id number] Closed Auto-Generate d Referral 01/15/2024 02/13/2025 1 1 Specialty Diagnoses / Procedures Referred By Nahomy t Referred To Contact CT IMAGING Diagnoses Malignant neoplasm of lower third of esophagus (HCC) Procedures CT ABD/PEL WO IVCON CT ABD & PELVIS W/O CONTRAST Richard Jenkins, DO [address] [place] [address] [place] [address] Reason Comments Outside Imaging Reason Comments Outside [...] Richard Jenkins, DO [address] [place] [address] [place] [address] Referral ID Status Reason Start Date Expiration Date V isits Requested Visits Authorized [id number] Closed Auto-Generate d Referral 05/02/2024 06/01/2025 1 1 Reason Comments Referral - Kidney Txp Reason Comments Outside [id number] Ordered Reason Comments Referral - Kidney Txp [...] W/O CONTRAST Maria Victoria Scott MD [address] MARGARETTE [address] [place] [address] Phone: tel: fax: [facility] [address] [place] [id number] Phone: tel: Referral ID Status Reason Start Date Expiration Date Visits Requested Visits Authorized [id number] Authorized Financial Clearance Required - OON Payor [...] hormone excess Procedures CONSULT TO ENDOCRINOLOGY OFFICE/OUTPATIENT [facility] 60 MINUTES aYw Singh MD [address] [place] [address] Phone: tel: fax: Referral ID Status Reason Start Date Expiration Date V isits Requested Visits Authorized [id number] Closed PCP Requested Referral 09/26/2024 09/26/2025 1 1 Specialty Diagnoses / Procedures Referred By Contac t Referred To Contact CT IMAGING Diagnoses Malignant neoplasm of lower third of esophagus (HCC) Procedures CT ABD/PEL WO IVCON CT ABD & PELVIS W/O CONTRAST Richard Jenkins, DO [address] [place] [address] Phone: tel: fax: [place] [phone] Referral ID Status Reason Start Date Expiration Date V isits Requested Visits Authorized [id number] Closed Auto-Generate d Referral 05/02/2024 06/01/2025 1 1 Reason Onset Date Comments Population Health Navigation Outreach 11/05/2024 [facility] [employer] [place] PCSA Reason Comments avs 8 Reason Onset Date Comments Refill Request 12/22/2024 Reason Comments Cough Cough, sinus, conges tion and runny nose x 3 weeks Care Teams (unrecognized sec tion and content) 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 Start Date End Date Yaw Singh MD [address] [place] [address] PCP - General Family Practice 08/27/20 Madan Roy MD, [address] [place] [facility] [place] [address] Physician Radiation Oncology 04/28/20 Luly Gaffney RN Specialty Peoplesoft Fscm Developer Oncology 05/18/20 Richard Jenkins, DO [address] [place] [address] Referring Hematology/Oncology 05/25/20 Ludin, [place] S [address] [place] [address] Cardiology 06/24/20 Sena Seymour LISW Push Button Switch Assembler 10/06/20 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 Start Date End Date Yaw Singh MD [address] [place] [address] PCP - General Family Practice 08/27/20 Madan Roy MD, [address] [place] [facility] [place] [address] Physician Radiation Oncology 04/28/20 Luly Gaffney RN Specialty Peoplesoft Fscm Developer Oncology 05/18/20 Richard Jenkins, DO [address] [place] [address] Referring Hematology/Oncology 05/25/20 Ludin, [place] S [address] [place] [address] Cardiology 06/24/20 Sena Seymour LISW Push Button Switch Assembler 10/06/20 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 Start Date End Date Yaw Singh MD [address] [place] [address] PCP - General Family Practice 08/27/20 Madan Roy MD, [address] [place] [facility] [place] [address] Physician Radiation Oncology 04/28/20 Luly Gaffney RN Specialty Peoplesoft Fscm Developer Oncology 05/18/20 Richard Jenkins, DO [address] [place] [address] Referring Hematology/Oncology 05/25/20 Ludin, [place] S [address] [place] [address] Cardiology 06/24/20 Sena Seymour LISW Push Button Switch Assembler 10/06/20 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 Start Date End Date Yaw Singh MD [address] [place] [address] PCP - General Family Practice 08/27/20 Madan Roy MD, [address] [place] [facility] [place] [address] Physician Radiation Oncology 04/28/20 Luly Gaffney RN Specialty Peoplesoft Fscm Developer Oncology 05/18/20 Richard Jenkins, DO [address] [place] [address] Referring Hematology/Oncology 05/25/20 [place], [place] S [address] [facility] [address] [place] [address] Cardiology 06/24/20 Sena Seymour LISW Push Button Switch Assembler 10/06/20 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 Start Date End Date Yaw Singh MD [address] [place] [address] PCP - General Family Practice 08/27/20 Madan Roy MD, [address] [facility] [address] Physician Radiation Oncology 04/28/20 Luly Gaffney RN Specialty Peoplesoft Fscm Developer Oncology 05/18/20 Richard Jenkins, DO [address] [place] [address] Referring Hematology/Oncology 05/25/20 [place], [place] S [address] [facility] [address] [place] [address] Cardiology 06/24/20 Sena Seymour LISW Push Button Switch Assembler 10/06/20 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 Start Date End Date Yaw Singh MD [address] [place] [address] PCP - General Family Practice 08/27/20 Madan Roy MD, [address] [place] [address] Physician Radiation Oncology 04/28/20 Luly Gaffney, RN Specialty Peoplesoft Fscm Developer Oncology 05/18/20 Richard Jenkins, DO [address] [place] [address] Referring Hematology/Oncology 05/25/20 [place], [place] S [address] [facility] [address] [place] [address] Cardiology 06/24/20 Sena Seymour LISW Push Button Switch Assembler 10/06/20 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 Start Date End Date Yaw Singh MD [address] [place] [address] PCP - General Family Practice 08/27/20 Madan Roy MD, [address] [facility] [place] [address] Physician Radiation Oncology 04/28/20 Luly Gaffney RN Specialty Peoplesoft Fscm Developer Oncology 05/18/20 Richard Jenkins, DO [address] [place] [address] Referring Hematology/Oncology 05/25/20 [place], [place] S [address] [place] [address] Cardiology 06/24/20 Sena Seymour LISW Push Button Switch Assembler 10/06/20 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 Start Date End Date Yaw Singh MD [address] [place] [address] PCP - General Family Practice 08/27/20 Madan Roy MD, [address] [place] [address] Physician Radiation Oncology 04/28/20 Luly Gaffney RN Specialty Peoplesoft Fscm Developer Oncology 05/18/20 Richard Jenkins, DO [address] [place] [address] Referring Hematology/Oncology 05/25/20 [place], [place] S [address] [place] [address] Cardiology 06/24/20 Sena Seymour LISW Push Button Switch Assembler 10/06/20 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 Start Date End Date Yaw Singh MD [address] [place] [address] PCP - General Family Practice 08/27/20 Madan Roy MD, [address] [facility] [place] [address] Physician Radiation Oncology 04/28/20 Luly Gaffney RN Specialty Peoplesoft Fscm Developer Oncology 05/18/20 Richard Jenkins, DO [address] [place] [address] Referring Hematology/Oncology 05/25/20 [place], [place] S [address] [facility] [address] [place] [address] Cardiology 06/24/20 Sena Seymour LISW Push Button Switch Assembler 10/06/20 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 Start Date End Date Yaw Singh MD [address] [place] [address] PCP - General Family Practice 08/27/20 Madan Roy MD, [address] [place] [address] Physician Radiation Oncology 04/28/20 Luly Gaffney RN Specialty Peoplesoft Fscm Developer Oncology 05/18/20 Richard Jenkins, DO [address] [place] [address] Referring Hematology/Oncology 05/25/20 Lud[place], [place] S [address] [facility] [address] [place] [address] Cardiology 06/24/20 Sena Seymour LISW Push Button Switch Assembler 10/06/20 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 Start Date End Date Yaw Singh MD [address] [place] [address] PCP - General Family Practice 08/27/20 Madan Roy MD, [address] [place] [address] Physician Radiation Oncology 04/28/20 Luly Gaffney RN Specialty Peoplesoft Fscm Developer Oncology 05/18/20 Richard Jenkins, DO [address] [place] [address] Referring Hematology/Oncology 05/25/20 [place], [place] S [address] [facility] [address] [place] [address] Cardiology 06/24/20 Sena Seymour LISW Push Button Switch Assembler 10/06/20 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 Start Date End Date Yaw Singh MD [address] [place] [address] PCP - General Family Practice 08/27/20 Madan Roy MD, [address] [place] [facility] [place] [address] Physician Radiation Oncology 04/28/20 Luly Gaffney RN Specialty Peoplesoft Fscm Developer Oncology 05/18/20 Richard Jenkins, [address] [place] [place] [address] Referring Hematology/Oncology 05/25/20 Ludin, [place] S [address] [facility] [address] [place] [address] Cardiology 06/24/20 Sena Seymour LISW Push Button Switch Assembler 10/06/20 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 Start Date End Date Yaw Singh MD [address] [place] [address] PCP - General Family Practice 08/27/20 Madan Roy MD, [address] [facility] [address] Physician Radiation Oncology 04/28/20 Luly Gaffney RN Specialty Peoplesoft Fscm Developer Oncology 05/18/20 Richard Jenkins, [address] [facility] [address] Referring Hematology/Oncology 05/25/20 Lud[place], [place] S [address] [place] [address] Cardiology 06/24/20 Sena Seymour LISW Push Button Switch Assembler 10/06/20 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 Start Date End Date Yaw Singh MD [address] [place] [address] PCP - General Family Practice 08/27/20 Madan Roy MD, [address] [place] [facility] [place] [address] Physician Radiation Oncology 04/28/20 Luly Gaffney RN Specialty Peoplesoft Fscm Developer Oncology 05/18/20 Richard Jenkins, [address] [place] [address] Referring Hematology/Oncology 05/25/20 Ludin, [place] S [address] [facility] [address] [place] [address] Cardiology 06/24/20 Sena Seymour LISW Push Button Switch Assembler 10/06/20 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 Start Date End Date Yaw Singh MD [address] [place] [address] PCP - General Family Practice 08/27/20 Madan Roy MD, [address] [place] [address] Physician Radiation Oncology 04/28/20 Luly Gaffney RN Specialty Peoplesoft Fscm Developer Oncology 05/18/20 Richard Jenkins, [address] [place] [address] Referring Hematology/Oncology 05/25/20 Ludin, [place] S [address] [facility] [address] [place] [address] Cardiology 06/24/20 Sena Seymour, MICHELE Push Button Switch Assembler 10/06/20 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 Start Date End Date Yaw Singh MD [address] [place] [address] PCP - General Family Practice 08/27/20 Madan Roy MD, [address] [facility] [address] Physician Radiation Oncology 04/28/20 Luly Gaffney RN Specialty Peoplesoft Fscm Developer Oncology 05/18/20 Richard Jenkins, DO [address] [place] [facility] [place] [address] Referring Hematology/Oncology 05/25/20 [place], [place] S [address] [place] [address] Cardiology 06/24/20 Sena Seymour RN Push Button Switch Assembler 10/06/20 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 Start Date End Date Yaw Singh MD [address] [place] [address] PCP - General Family Practice 08/27/20 Madan Roy MD, [address] [place] [facility] [place] [address] Physician Radiation Oncology 04/28/20 Luly Gaffney RN Specialty Peoplesoft Fscm Developer Oncology 05/18/20 Richard Jenkins, DO [address] [facility] [address] Referring Hematology/Oncology 05/25/20 Ludin, Harold[place] S [address] [place] [address] Cardiology 06/24/20 Sena Seymour RN Push Button Switch Assembler 10/06/20 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 Start Date End Date Yaw Singh MD [address] [place] [address] PCP - General Family Medicine 08/27/20 Madan Roy MD, [address] [place] [facility] [place] [address] Physician Radiation Oncology 04/28/20 Luly Gaffney RN Specialty Peoplesoft Fscm Developer Oncology 05/18/20 Richard Jenkins, DO [address] [place] [facility] [place] [address] Referring Hematology/Oncology 05/25/20 [place], [place] S [address] [place] [address] Cardiology 06/24/20 Sena Seymour RN Push Button Switch Assembler 10/06/20 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 Start Date End Date Yaw Singh MD [address] [place] [address] PCP - General Family Medicine 08/27/20 Madan Roy MD, [address] [place] [facility] [place] [address] Physician Radiation Oncology 04/28/20 Luly Gaffney RN Specialty Peoplesoft Fscm Developer Oncology 05/18/20 Richard Jenkins, DO [address] [place] [facility] [place] [address] Referring Hematology/Oncology 05/25/20 Ludin, [place] S [address] [facility] [address] [place] [address] Cardiology 06/24/20 Sena Seymour RN Push Button Switch Assembler 10/06/20 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 Start Date End Date Yaw Singh MD [address] [place] [address] PCP - General Family Medicine 08/27/20 Madan Roy MD, [address] [place] [facility] [place] [address] Physician Radiation Oncology 04/28/20 Luly Gaffney, RN Specialty Peoplesoft Fscm Developer Oncology 05/18/20 Richard Jenkins, DO [address] [place] [place] [address] Referring Hematology/Oncology 05/25/20 Ludin, [place] S [address] [facility] [address] [place] [address] Cardiology 06/24/20 Sena Seymour, MICHELE Push Button Switch Assembler 10/06/20 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 Start Date End Date Yaw Singh MD [address] [place] [address] PCP - General Family Medicine 08/27/20 Madan Roy MD, [address] [place] [place] [address] Physician Radiation Oncology 04/28/20 Luly Gaffney RN Specialty Peoplesoft Fscm Developer Oncology 05/18/20 Richard Jenkins, DO [address] [place] [facility] [place] [address] Referring Hematology/Oncology 05/25/20 [place], [place] S [address] [place] [address] Cardiology 06/24/20 Sena Seymour RN Push Button Switch Assembler 10/06/20 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 Start Date End Date Yaw Singh MD [address] [place] [address] PCP - General Family Medicine 08/27/20 Madan Roy MD, [address] [place] [place] [address] Physician Radiation Oncology 04/28/20 Luly Gaffney RN Specialty Peoplesoft Fscm Developer Oncology 05/18/20 Richard Jenkins, DO [address] [place] [place] [address] Referring Hematology/Oncology 05/25/20 [place], [place] S [address] [facility] [address] [place] [address] Cardiology 06/24/20 Sena Seymour, RN Push Button Switch Assembler 10/06/20 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 Start Date End Date Yaw Singh MD [address] [place] [address] PCP - General Family Medicine 08/27/20 Madan Roy MD, [address] [place] [facility] [place] [address] Physician Radiation Oncology 04/28/20 Luly Gaffney RN Specialty Peoplesoft Fscm Developer Oncology 05/18/20 Richard Jenkins, DO [address] [place] [place] [address] Referring Hematology/Oncology 05/25/20 [place], [place] S [address] [place] [address] Cardiology 06/24/20 Sena Seymour RN Push Button Switch Assembler 10/06/20 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 Start Date End Date Yaw Singh MD [address] [place] [address] PCP - General Family Medicine 08/27/20 Madan Roy MD, [address] [place] [place] [address] Physician Radiation Oncology 04/28/20 Luly Gaffney RN Specialty Peoplesoft Fscm Developer Oncology 05/18/20 Richard Jenkins, DO [address] [place] [address] Referring Hematology/Oncology 05/25/20 Lud[place], [place] S [address] [facility] [address] [place] [address] Cardiology 06/24/20 Sena Seymour, RN Push Button Switch Assembler 10/06/20 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 Start Date End Date Yaw Singh MD [address] [place] [address] PCP - General Family Medicine 08/27/20 Madan Roy MD, [address] [place] [place] [address] Physician Radiation Oncology 04/28/20 Luly Gaffney RN Specialty Peoplesoft Fscm Developer Oncology 05/18/20 Richard Jenkins, DO [address] [place] [place] [address] Referring Hematology/Oncology 05/25/20 [place], [place] S [address] [place] [address] Cardiology 06/24/20 Sena Seymour RN Push Button Switch Assembler 10/06/20 Team Status: Active Member Role Status Dates Dr. Dane Hancock III, MD Family Provider Active Dr. Yaw Singh MD Primary Care Provider Active Team Status: Inactive Member Role Status Dates Dr. Yaw Singh MD Primary Care Provider, Referri Provider Active Angel Whitney NP, TECHNICAL SALES SUPPORT SPECIALIST-C Attending Provider Active Team Status: Inactive Member Role Status Dates Dr. Yaw Singh MD Primary Care Provider Active Dr. Sue Roberts MD Emergency Provider Active 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 Start Date End Date Yaw Singh MD [address] [place] [address] PCP - General Family Medicine 08/27/20 Madan Roy MD, [address] [facility] [place] [address] Physician Radiation Oncology 04/28/20 Luly Gaffney RN Specialty Peoplesoft Fscm Developer Oncology 05/18/20 Richard Jenkins, DO [address] [facility] [place] [address] Referring Hematology/Oncology 05/25/20 [place], [place] S [address] [facility] [address] [place] [address] Cardiology 06/24/20 Sena Seymour RN Push Button Switch Assembler 10/06/20 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 Start Date End Date Yaw Singh MD [address] [place] [address] PCP - General Family Medicine 08/27/20 Madan Roy MD, [address] [place] [facility] [place] [address] Physician Radiation Oncology 04/28/20 Luly Gaffney RN Specialty Peoplesoft Fscm Developer Oncology 05/18/20 Richard Jenkins, DO [address] [place] [facility] [place] [address] Referring Hematology/Oncology 05/25/20 Ludin, [place] S [address] [place] [address] Cardiology 06/24/20 Sena Seymour RN Push Button Switch Assembler 10/06/20 Team Status: Inactive Member Role Status Dates Dr. Yaw Singh MD Primary Care Provider Active Dr. Sue Roberts MD Attending Provider, Emergency Provider Active Team Status: Inactive Member Role Status Dates Dr. Yaw Singh MD Primary Care Provider Active Dr. Van Danielle MD Attending Provider, Referr ing Provider Active 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 Start Date End Date Yaw Singh MD [address] [place] [address] PCP - General Family Medicine 08/27/20 Madan Roy MD, [address] [place] [facility] [place] [address] Physician Radiation Oncology 04/28/20 Luly Gaffney RN Specialty Peoplesoft Fscm Developer Oncology 05/18/20 Richard Jenkins, DO [address] [place] [address] Referring Hematology/Oncology 05/25/20 Ludin, [place] S [address] [place] [address] Cardiology 06/24/20 Sena Seymour RN Push Button Switch Assembler 10/06/20 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 Start Date End Date Yaw Singh MD [address] [place] [address] PCP - General Family Medicine 08/27/20 Madan Roy MD, [address] [place] [facility] [place] [address] Physician Radiation Oncology 04/28/20 Luly Gaffney RN Specialty Peoplesoft Fscm Developer Oncology 05/18/20 Richard Jenkins, DO [address] [place] [address] Referring Hematology/Oncology 05/25/20 Ludin, [place] S [address] [place] [address] Cardiology 06/24/20 Sena Seymour RN Push Button Switch Assembler 10/06/20 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 Start Date End Date Yaw Singh MD [address] [place] [address] PCP - General Family Medicine 08/27/20 Madan Roy MD, [address] [place] [address] Physician Radiation Oncology 04/28/20 Luly Gaffney RN Specialty Peoplesoft Fscm Developer Oncology 05/18/20 Richard Jenkins, [address] [place] [address] Referring Hematology/Oncology 05/25/20 [place], [place] S [address] [address] Cardiology 06/24/20 Sena Seymour RN Push Button Switch Assembler 10/06/20 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 Start Date End Date Yaw Singh MD [address] [place] [address] PCP - General Family Medicine 08/27/20 Madan Roy MD, [address] [place] [address] Physician Radiation Oncology 04/28/20 Luly Gaffney RN Specialty Peoplesoft Fscm Developer Oncology 05/18/20 Richard Jenkins, [address] [place] [address] Referring Hematology/Oncology 05/25/20 [place], [place] S [address] [address] Cardiology 06/24/20 Sena Seymour RN Push Button Switch Assembler 10/06/20 Team Status: Inactive Member Role Status Dates Dr. Yaw Singh MD Primary Care Provider Active Angel Whitney NP, TECHNICAL SALES SUPPORT SPECIALIST-C Attending Provider, Referring Pro vider Active 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 Start Date End Date Yaw Singh MD [address] [place] [address] PCP - General Family Medicine 08/27/20 Madan Roy MD, [address] [place] [address] Physician Radiation Oncology 04/28/20 Luly Gaffney RN Specialty Peoplesoft Fscm Developer Oncology 05/18/20 Richard Jenkins DO [address] [place] [address] Referring Hematology/Oncology 05/25/20 Haroldo Noland [address] [place] [address] Cardiology 06/24/20 Sena Seymour, RN Push Button Switch Assembler 10/06/20 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 Start Date End Date Yaw Singh MD [address] [place] [address] PCP - General Family Medicine 08/27/20 Madan Roy MD, [address] [place] [address] Physician Radiation Oncology 04/28/20 Luly Gaffney RN Specialty Peoplesoft Fscm Developer Oncology 05/18/20 Richard Jenkins DO [address] [place] [address] Referring Hematology/Oncology 05/25/20 Haroldo Noland MD [address] [place] [address] Cardiology 06/24/20 Sena Seymour, RN Push Button Switch Assembler 10/06/20 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 Start Date End Date Yaw Singh MD [address] [place] [address] PCP - General Family Medicine 08/27/20 Madan Roy MD, [address] [place] [address] Physician Radiation Oncology 04/28/20 Luly Gaffney RN Specialty Peoplesoft Fscm Developer Oncology 05/18/20 Richard Jenkins DO [address] [place] [address] Referring Hematology/Oncology 05/25/20 Haroldo Noland MD [address] [place] [address], [place] [address] Cardiology 06/24/20 Sena Seymour RN Push Button Switch Assembler 10/06/20 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 Start Date End Date Yaw Singh MD [address] [place] [address] PCP - General Family Medicine 08/27/20 Madan Roy MD, [address] [address] Physician Radiation Oncology 04/28/20 Luly Gaffney RN Specialty Peoplesoft Fscm Developer Oncology 05/18/20 Richard Jenkins DO [address] [address] Referring Hematology/Oncology 05/25/20 Haroldo Noland MD [address] [place] [address] Cardiology 06/24/20 Sena Seymour, RN Push Button Switch Assembler 10/06/20 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 Start Date End Date Yaw Singh MD [address] [place] [address] PCP - General Family Medicine 08/27/20 Madan Roy MD, [address] [place] [facility] [place] [address] Physician Radiation Oncology 04/28/20 Luly Gaffney RN Specialty Peoplesoft Fscm Developer Oncology 05/18/20 Richard Jenkins DO [address] [place] [address] Referring Hematology/Oncology 05/25/20 Haroldo Noland MD [address] [place] [address] Cardiology 06/24/20 Sena Seymour RN Push Button Switch Assembler 10/06/20 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 Start Date End Date Yaw Singh MD [address] [place] [address] PCP - General Family Medicine 08/27/20 Madan Roy MD, [address] [place] [address] Physician Radiation Oncology 04/28/20 Luly Gaffney RN Specialty Peoplesoft Fscm Developer Oncology 05/18/20 Richard Jenkins DO [address] [place] [address] Referring Hematology/Oncology 05/25/20 Haroldo Noland MD [address] [place] [address] Cardiology 06/24/20 Sena Seymour RN Push Button Switch Assembler 10/06/20 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 Start Date End Date Yaw Singh MD [address] [place] [address] PCP - General Family Medicine 08/27/20 Madan Roy MD, [address] [place] [facility] [place] [address] Physician Radiation Oncology 04/28/20 Luly Gaffney RN Specialty Peoplesoft Fscm Developer Oncology 05/18/20 Richard Jenkins DO [address] [place] [facility] [place] [address] Referring Hematology/Oncology 05/25/20 Haroldo Noland MD [address] [place] [address] Cardiology 06/24/20 Sena Seymour RN Push Button Switch Assembler 10/06/20 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 Start Date End Date Yaw Singh MD [address] [place] [address] PCP - General Family Medicine 08/27/20 Madan Roy MD, MD [address] [place] [address] Physician Radiation Oncology 04/28/20 Luly Gaffney RN Specialty Peoplesoft Fscm Developer Oncology 05/18/20 Richard Jenkins DO [address] [place] [address] Referring Hematology/Oncology 05/25/20 Haroldo Noland MD [address] [facility] [address] [place] [address] Cardiology 06/24/20 Sena Seymour, RN Push Button Switch Assembler 10/06/20 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 Start Date End Date Yaw Singh MD [address] [place] [address] PCP - General Family Medicine 08/27/20 Madan Roy MD, MD [address] [place] [address] Physician Radiation Oncology 04/28/20 Luly Gaffney RN Specialty Peoplesoft Fscm Developer Oncology 05/18/20 Richard Jenkins DO [address] [place] [address] Referring Hematology/Oncology 05/25/20 Haroldo Noland MD [address] [facility] [address] [place] [address] Cardiology 06/24/20 Sena Seymour, RN Push Button Switch Assembler 10/06/20 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 Start Date End Date Yaw Singh MD [address] [place] [address] PCP - General Family Medicine 08/27/20 Madan Roy MD, MD [address] [place] [address] Physician Radiation Oncology 04/28/20 Luly Gaffney RN Specialty Peoplesoft Fscm Developer Oncology 05/18/20 Richard Jenkins DO [address] [place] [address] Referring Hematology/Oncology 05/25/20 Haroldo Noland MD [address] [place] [address] Cardiology 06/24/20 Sena Seymour RN Push Button Switch Assembler 10/06/20 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 Start Date End Date Yaw Singh MD [address] [place] [address] PCP - General Family Medicine 08/27/20 Madan Roy MD, [address] [place] [address] Physician Radiation Oncology 04/28/20 Luly Gaffney RN Specialty Peoplesoft Fscm Developer Oncology 05/18/20 Richard Jenkins DO [address] [place] [facility] [place] [address] Referring Hematology/Oncology 05/25/20 Haroldo Noland MD [address] [address] Cardiology 06/24/20 Sena Seymour RN Push Button Switch Assembler 10/06/20 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 Start Date End Date Yaw Singh MD [address] [place] [address] PCP - General Family Medicine 08/27/20 Madan Roy MD [address] [facility] [place] [address] Physician Radiation Oncology 04/28/20 Luly Gaffney RN Specialty Peoplesoft Fscm Developer Oncology 05/18/20 Richard Jenkins DO [address] [place] [address] Referring Hematology/Oncology 05/25/20 Haroldo Noland MD [address] [facility] [address] [place] [address] Cardiology 06/24/20 Sena Seymour RN Push Button Switch Assembler 10/06/20 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 Start Date End Date Yaw Singh MD [address] [facility] [place] [place] [address] PCP - General Family Medicine 08/27/20 Madan Roy MD [address] [place] [address] Physician Radiation Oncology 04/28/20 Luly Gaffney RN Specialty Peoplesoft Fscm Developer Oncology 05/18/20 Richard Jenkins DO [address] [place] [address] Referring Hematology/Oncology 05/25/20 Haroldo Noland MD [address] YOUClaudia [facility] [address] [place] [address] Cardiology 06/24/20 Sena Seymour RN Push Button Switch Assembler 10/06/20 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 Start Date End Date Yaw Singh MD [address] [place] [address] PCP - General Family Medicine 08/27/20 Madan Roy MD [address] [place] [address] Physician Radiation Oncology 04/28/20 Luly Gaffney RN Specialty Peoplesoft Fscm Developer Oncology 05/18/20 Richard Jenkins DO [address] [place] [address] Referring Hematology/Oncology 05/25/20 Haroldo Noland MD [address] [place] [address], [place] [address] Cardiology 06/24/20 Sena Seymour RN Push Button Switch Assembler 10/06/20 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 Start Date End Date Yaw Singh MD [address] [place] [address] PCP - General Family Medicine 08/27/20 Madan Roy MD [address] [place] [address] Physician Radiation Oncology 04/28/20 Luly Gaffney RN Specialty Peoplesoft Fscm Developer Oncology 05/18/20 Richard Jenkins DO [address] [place] [address] Referring Hematology/Oncology 05/25/20 Haroldo Noland MD [address] [place] [address], [place] [address] Cardiology 06/24/20 Sena Seymour RN Push Button Switch Assembler 10/06/20 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 Start Date End Date Yaw Singh MD [address] [place] [address] PCP - General Family Medicine 08/27/20 Madan Roy MD [address] [place] [address] Physician Radiation Oncology 04/28/20 Luly Gaffney RN Specialty Peoplesoft Fscm Developer Oncology 05/18/20 Richard Jenkins DO [address] [place] [address] Referring Hematology/Oncology 05/25/20 Haroldo Noland MD [address] [place] [address] Cardiology 06/24/20 Sena Seymour RN Push Button Switch Assembler 10/06/20 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 Start Date End Date Yaw Singh MD [address] [place] [address] PCP - General Family Medicine 08/27/20 Madan Roy MD [address] [place] [address] Physician Radiation Oncology 04/28/20 Luly Gaffney RN Specialty Peoplesoft Fscm Developer Oncology 05/18/20 Richard Jenkins DO [address] [place] [address] Referring Hematology/Oncology 05/25/20 Haroldo Noland MD [address] [facility] [address] [place] [address] Cardiology 06/24/20 Sena Seymour RN Push Button Switch Assembler 10/06/20 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 Start Date End Date Yaw Singh MD [address] [facility] [place] [place] [address] PCP - General Family Medicine 08/27/20 Madan Roy MD [address] [place] [address] Physician Radiation Oncology 04/28/20 Luly Gaffney RN Specialty Peoplesoft Fscm Developer Oncology 05/18/20 Richard Jenkins DO [address] [place] [address] Referring Hematology/Oncology 05/25/20 Haroldo Noland MD [address] [place] [address], [place] [address] Cardiology 06/24/20 Sena Seymour RN Push Button Switch Assembler 10/06/20 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 Start Date End Date Yaw Singh MD [address] [place] [address] PCP - General Family Medicine 08/27/20 Madan Roy MD [address] [place] [address] Physician Radiation Oncology 04/28/20 Luly Gaffney RN Specialty Peoplesoft Fscm Developer Oncology 05/18/20 Richard Jenkins DO [address] [place] [address] Referring Hematology/Oncology 05/25/20 Haroldo Noland MD [address] [place] [address] Cardiology 06/24/20 Sena Seymour, RN Push Button Switch Assembler 10/06/20 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 Start Date End Date Yaw Singh MD [address] [place] [address] PCP - General Family Medicine 08/27/20 Madan Roy MD [address] [place] [facility] [place] [address] Physician Radiation Oncology 04/28/20 Luly Gaffney RN Specialty Peoplesoft Fscm Developer Oncology 05/18/20 Richard Jenkins DO [address] [place] [place] [address] Referring Hematology/Oncology 05/25/20 Haroldo Noland MD [address] [place] [address] Cardiology 06/24/20 Sena Seymour RN Push Button Switch Assembler 10/06/20 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 Start Date End Date Yaw Singh MD [address] [place] [address] PCP - General Family Medicine 08/27/20 Madan Roy MD [address] [place] [address] Physician Radiation Oncology 04/28/20 Luly Gaffney RN Specialty Peoplesoft Fscm Developer Oncology 05/18/20 Richard Jenkins DO [address] [place] [address] Referring Hematology/Oncology 05/25/20 Haroldo Noland MD [address] YOUClaudia [facility] [address] [place] [address] Cardiology 06/24/20 Sena Seymour, RN Push Button Switch Assembler 10/06/20 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 Start Date End Date Yaw Singh MD [address] [facility] [place] [address] PCP - General Family Medicine 08/27/20 Madan Roy MD [address] [place] [address] Physician Radiation Oncology 04/28/20 Luly Gaffney RN Specialty Peoplesoft Fscm Developer Oncology 05/18/20 Richard Jenkins DO [address] [place] [place] [address] Referring Hematology/Oncology 05/25/20 Haroldo Noland MD [address] AVELINOClaudia [facility] [address] [place] [address] Cardiology 06/24/20 Sena Seymour, RN Push Button Switch Assembler 10/06/20 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 Start Date End Date Yaw Singh MD [address] [facility] [place] [address] PCP - General Family Medicine 08/27/20 Madan Roy MD [address] [place] [address] Physician Radiation Oncology 04/28/20 Luly Gaffney RN Specialty Peoplesoft Fscm Developer Oncology 05/18/20 Richard Jenkins DO [address] [place] [place] [address] Referring Hematology/Oncology 05/25/20 Haroldo Noland MD [address] [facility] [address] [place] [address] Cardiology 06/24/20 Sena Seymour, RN Push Button Switch Assembler 10/06/20 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 Start Date End Date Yaw Singh MD [address] [place] [address] PCP - General Family Medicine 08/27/20 Madan Roy MD [address] [place] [address] Physician Radiation Oncology 04/28/20 Luly Gaffney RN Specialty Peoplesoft Fscm Developer Oncology 05/18/20 Richard Jenkins DO [address] [place] [address] Referring Hematology/Oncology 05/25/20 Haroldo Noland MD [address] [facility] [place] [address] Cardiology 06/24/20 Sena Seymour RN Push Button Switch Assembler 10/06/20 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 Start Date End Date Yaw Singh MD [address] [place] [address] PCP - General Family Medicine 08/27/20 Madan Roy MD [address] [place] [address] Physician Radiation Oncology 04/28/20 Luly Gaffney RN Specialty Peoplesoft Fscm Developer Oncology 05/18/20 Richard Jenkins DO [address] [place] [address] Referring Hematology/Oncology 05/25/20 Haroldo Noland MD [address] [place] [address] Cardiology 06/24/20 Sena Seymour, RN Push Button Switch Assembler 10/06/20 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 Start Date End Date Yaw Singh MD [address] [place] [address] PCP - General Family Medicine 08/27/20 Madan Roy MD [address] [place] [address] Physician Radiation Oncology 04/28/20 Luly Gaffney RN Specialty Peoplesoft Fscm Developer Oncology 05/18/20 Richard Jenkins DO [address] [place] [address] Referring Hematology/Oncology 05/25/20 Haroldo Noland MD [address] [place] [address] Cardiology 06/24/20 Sena Seymour, RN Push Button Switch Assembler 10/06/20 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 Start Date End Date Yaw Singh MD [address] [place] [address] PCP - General Family Medicine 08/27/20 Madan Roy MD [address] [place] [address] Physician Radiation Oncology 04/28/20 Luly Gaffney RN Specialty Peoplesoft Fscm Developer Oncology 05/18/20 Richard Jenkins DO [address] [place] [facility] [place] [address] Referring Hematology/Oncology 05/25/20 Haroldo Noland MD [address] [facility] [address] [address] Cardiology 06/24/20 Sena Seymour, RN Push Button Switch Assembler 10/06/20 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 Start Date End Date Yaw Singh MD [address] [place] [address] PCP - General Family Medicine 08/27/20 Madan Roy MD [address] [place] [address] Physician Radiation Oncology 04/28/20 Luly Gaffney RN Specialty Peoplesoft Fscm Developer Oncology 05/18/20 Richard Jenkins DO [address] [place] [facility] [place] [address] Referring Hematology/Oncology 05/25/20 Haroldo Noland MD [address] [place] [address] Cardiology 06/24/20 Sena Seymour RN Push Button Switch Assembler 10/06/20 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 Start Date End Date Yaw Singh MD [address] [place] [address] PCP - General Family Medicine 08/27/20 Madan Roy MD [address] [place] [address] Physician Radiation Oncology 04/28/20 Luly Gaffney RN Specialty Peoplesoft Fscm Developer Oncology 05/18/20 Richard Jenkins DO [address] [place] [address] Referring Hematology/Oncology 05/25/20 Haroldo Noland MD [address] [facility] [address] [place] [address] Cardiology 06/24/20 Sena Seymour, RN Push Button Switch Assembler 10/06/20 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 Start Date End Date Yaw Singh MD [address] [place] [address] PCP - General Family Medicine 08/27/20 Madan Roy MD [address] [place] [address] Physician Radiation Oncology 04/28/20 Luly Gaffney RN Specialty Peoplesoft Fscm Developer Oncology 05/18/20 Richard Jenkins DO [address] [place] [address] Referring Hematology/Oncology 05/25/20 Haroldo Noland MD [address] [facility] [address] [place] [address] Cardiology 06/24/20 Sena Seymour RN Push Button Switch Assembler 10/06/20 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 Start Date End Date Yaw Singh MD [address] [place] [address] PCP - General Family Medicine 08/27/20 Madan Roy MD [address] [place] [address] Physician Radiation Oncology 04/28/20 Luly Gaffney RN Specialty Peoplesoft Fscm Developer Oncology 05/18/20 Richard Jenkins DO [address] [facility] [place] [address] Referring Hematology/Oncology 05/25/20 Haroldo Noland MD [address] [place] [address] Cardiology 06/24/20 Sena Seymour RN Push Button Switch Assembler 10/06/20 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 Start Date End Date Yaw Singh MD [address] [place] [address] PCP - General Family Medicine 08/27/20 Madan Roy MD [address] [place] [address] Physician Radiation Oncology 04/28/20 Luly Gaffney RN Specialty Peoplesoft Fscm Developer Oncology 05/18/20 Richard Jenkins DO [address] [place] [address] Referring Hematology/Oncology 05/25/20 Haroldo Noland MD [address] [place] [address], [place] [address] Cardiology 06/24/20 Sena Seymour RN Push Button Switch Assembler 10/06/20 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 Start Date End Date Yaw Singh MD [address] [place] [address] PCP - General Family Medicine 08/27/20 Madan Roy MD [address] [place] [address] Physician Radiation Oncology 04/28/20 Luly Gaffney RN Specialty Peoplesoft Fscm Developer Oncology 05/18/20 Richard Jenkins DO [address] [place] [address] Referring Hematology/Oncology 05/25/20 Haroldo Noland MD [address] [place] [address] Cardiology 06/24/20 Sena Seymour RN Push Button Switch Assembler 10/06/20 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 Start Date End Date Yaw Singh MD [address] [place] [address] PCP - General Family Medicine 08/27/20 Madan Roy MD [address] [place] [address] Physician Radiation Oncology 04/28/20 Luly Gaffney RN Specialty Peoplesoft Fscm Developer Oncology 05/18/20 Richard Jenkins DO [address] [place] [address] Referring Hematology/Oncology 05/25/20 Haroldo Noland MD [address] [place] [address] Cardiology 06/24/20 Sena Seymour RN Push Button Switch Assembler 10/06/20 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 Start Date End Date Yaw Singh MD [address] [place] [address] PCP - General Family Medicine 08/27/20 Madan Roy MD [address] [place] [address] Physician Radiation Oncology 04/28/20 Luly Gaffney RN Specialty Peoplesoft Fscm Developer Oncology 05/18/20 Richard Jenkins DO [address] [place] [address] Referring Hematology/Oncology 05/25/20 Haroldo Noland MD [address] [place] [address], [place] [address] Cardiology 06/24/20 Sena Seymour RN Push Button Switch Assembler 10/06/20 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 Start Date End Date Yaw Singh MD [address] [place] [address] PCP - General Family Medicine 08/27/20 Madan Roy MD [address] [place] [address] Physician Radiation Oncology 04/28/20 Luly Gaffney RN Specialty Peoplesoft Fscm Developer Oncology 05/18/20 Richard Jenknis DO [address] [place] [address] Referring Hematology/Oncology 05/25/20 Haroldo Noland MD [address] [place] [address] Cardiology 06/24/20 Sena Seymour, MICHELE Push Button Switch Assembler 10/06/20 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 Start Date End Date Yaw Singh MD [address] [place] [address] PCP - General Family Medicine 08/27/20 Madan Roy MD [address] [place] [facility] [place] [address] Physician Radiation Oncology 04/28/20 Luly Gaffney RN Specialty Peoplesoft Fscm Developer Oncology 05/18/20 Richard Jenkins DO [address] [place] [facility] [place] [address] Referring Hematology/Oncology 05/25/20 Haroldo Noland MD [address] [facility] [place] [address] Cardiology 06/24/20 Sena Seymour RN Push Button Switch Assembler 10/06/20 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 Start Date End Date Yaw Singh MD [address] [place] [address] PCP - General Family Medicine 08/27/20 Madan Roy MD [address] [place] [facility] [place] [address] Physician Radiation Oncology 04/28/20 Luly Gaffney RN Specialty Peoplesoft Fscm Developer Oncology 05/18/20 Richard Jenkins DO [address] [place] [facility] [place] [address] Referring Hematology/Oncology 05/25/20 Haroldo Noland MD [address] [facility] [address] [place] [address] Cardiology 06/24/20 Sena Seymour, RN Push Button Switch Assembler 10/06/20 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 Start Date End Date Yaw Singh MD [address] [place] [address] PCP - General Family Medicine 08/27/20 Madan Roy MD [address] [place] [address] Physician Radiation Oncology 04/28/20 Luly Gaffney RN Specialty Peoplesoft Fscm Developer Oncology 05/18/20 Richard Jenkins DO [address] [place] [address] Referring Hematology/Oncology 05/25/20 Haroldo Noland MD [address] [place] [address] Cardiology 06/24/20 Sena Seymour RN Push Button Switch Assembler 10/06/20 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 Start Date End Date Yaw Singh MD [address] [place] [address] PCP - General Family Medicine 08/27/20 Madan Roy MD [address] [place] [address] Physician Radiation Oncology 04/28/20 Luly Gaffney RN Specialty Peoplesoft Fscm Developer Oncology 05/18/20 Richard Jenkins DO [address] [place] [place] [address] Referring Hematology/Oncology 05/25/20 Haroldo Nloand MD [address] [facility] [address] [place] [address] Cardiology 06/24/20 Sena Seymour RN Push Button Switch Assembler 10/06/20 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 Start Date End Date Yaw Singh MD [address] [facility] [place] [address] PCP - General Family Medicine 08/27/20 Madan Roy MD [address] [place] [address] Physician Radiation Oncology 04/28/20 Luly Gaffney RN Specialty Peoplesoft Fscm Developer Oncology 05/18/20 Richard Jenkins DO [address] [place] [address] Referring Hematology/Oncology 05/25/20 Haroldo Noland MD [address] [facility] [address] [place] [address] Cardiology 06/24/20 Sena Seymour RN Push Button Switch Assembler 10/06/20 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 Start Date End Date Yaw Singh MD [address] [place] [address] PCP - General Family Medicine 08/27/20 Madan Roy MD [address] [place] [address] Physician Radiation Oncology 04/28/20 Luly Gaffney RN Specialty Peoplesoft Fscm Developer Oncology 05/18/20 Richard Jenkins DO [address] [place] [address] Referring Hematology/Oncology 05/25/20 Haroldo Noland MD [address] [place] [address] Cardiology 06/24/20 Sena Seymour, RN Push Button Switch Assembler 10/06/20 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 Start Date End Date Yaw Singh MD [address] [place] [address] PCP - General Family Medicine 08/27/20 Madan Roy MD [address] [place] [address] Physician Radiation Oncology 04/28/20 Luly Gaffney RN Specialty Peoplesoft Fscm Developer Oncology 05/18/20 Richard Jenkins DO [address] [place] [address] Referring Hematology/Oncology 05/25/20 Haroldo Noland MD [address] [place] [address] Cardiology 06/24/20 Sena Seymour, RN Push Button Switch Assembler 10/06/20 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 Start Date End Date Yaw Singh MD [address] [place] [address] PCP - General Family Medicine 08/27/20 Madan Roy MD [address] [address] Physician Radiation Oncology 04/28/20 Luly Gaffney RN Specialty Peoplesoft Fscm Developer Oncology 05/18/20 Richard Jenkins DO [address] [place] [address] Referring Hematology/Oncology 05/25/20 Haroldo Noland MD [address] [place] [address] Cardiology 06/24/20 Sena Seymour, RN Push Button Switch Assembler 10/06/20 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 Start Date End Date Yaw Singh MD [address] [place] [address] PCP - General Family Medicine 08/27/20 Madan Roy MD [address] [place] [address] Physician Radiation Oncology 04/28/20 Luly Gaffney RN Specialty Peoplesoft Fscm Developer Oncology 05/18/20 Richard Jenkins DO [address] [place] [address] Referring Hematology/Oncology 05/25/20 Haroldo Noland MD [address] [place] [address] Cardiology 06/24/20 Sena Seymour, RN Push Button Switch Assembler 10/06/20 Bud Beck DO [address] [place] [address] Gastroenterology 01/15/24 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 Start Date End Date Yaw Singh MD [address] [place] [address] PCP - General Family Medicine 08/27/20 Madan Roy MD [address] [place] [address] Physician Radiation Oncology 04/28/20 Luly Gaffney RN Specialty Peoplesoft Fscm Developer Oncology 05/18/20 Richard Jenkins DO [address] [place] [address] Referring Hematology/Oncology 05/25/20 Haroldo Noland MD [address] [place] [address] Cardiology 06/24/20 Sena Seymour, MICHELE Push Button Switch Assembler 10/06/20 Bud Beck DO [address] [facility] [address] [place] [address] Gastroenterology 01/15/24 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 Start Date End Date Yaw Singh MD [address] [place] [address] PCP - General Family Medicine 08/27/20 Madan Roy MD [address] [place] [address] Physician Radiation Oncology 04/28/20 Luly Gaffney RN Specialty Peoplesoft Fscm Developer Oncology 05/18/20 Richard Jenkins DO [address] [place] [address] Referring Hematology/Oncology 05/25/20 Haroldo Noland MD [address]audia [facility] [address] [place] [address] Cardiology 06/24/20 Sena Seymour, RN Push Button Switch Assembler 10/06/20 Bud Beck DO [address] [facility] [address] [place] [address] Gastroenterology 01/15/24 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 Start Date End Date Yaw Singh MD [address] [place] [address] PCP - General Family Medicine 08/27/20 Madan Roy MD [address] [facility] [place] [address] Physician Radiation Oncology 04/28/20 Luly Gaffney RN Specialty Peoplesoft Fscm Developer Oncology 05/18/20 Richard Jenkins DO [address] [facility] [place] [address] Referring Hematology/Oncology 05/25/20 Haroldo Noland MD [address] [place] [address] Cardiology 06/24/20 Sena Seymour, RN Push Button Switch Assembler 10/06/20 Bud Beck DO [address] [facility] [address] [place], [place] [address] Gastroenterology 01/15/24 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 Start Date End Date Yaw Singh MD [address] [place] [address] PCP - General Family Medicine 08/27/20 Madan Roy MD [address] [place] [address] Physician Radiation Oncology 04/28/20 Luly Gaffney RN Specialty Peoplesoft Fscm Developer Oncology 05/18/20 Richard Jenkins DO [address] [place] [address] Referring Hematology/Oncology 05/25/20 Haroldo Noland MD [address] [place] [address] Cardiology 06/24/20 Sena Seymour, MICHELE Push Button Switch Assembler 10/06/20 Bud Beck DO [address] [place] [address] Gastroenterology 01/15/24 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 Start Date End Date Yaw Singh MD [address] [place] [address] PCP - General Family Medicine 08/27/20 Madan Roy MD [address] [place] [address] Physician Radiation Oncology 04/28/20 Luly Gaffney RN Specialty Peoplesoft Fscm Developer Oncology 05/18/20 Richard Jenkins DO [address] [place] [address] Referring Hematology/Oncology 05/25/20 Haroldo Noland MD [address] [place] [address] Cardiology 06/24/20 Sena Seymour, RN Push Button Switch Assembler 10/06/20 Bud Beck DO [address] [facility] [address] [place] [address] Gastroenterology 01/15/24 JimymiStar dicksona 01/29/24 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 Start Date End Date Yaw Singh MD [address] [place] [address] PCP - General Family Medicine 08/27/20 Madan Roy MD [address] [place] [facility] [place] [address] Physician Radiation Oncology 04/28/20 Luly Gaffney RN Specialty Peoplesoft Fscm Developer Oncology 05/18/20 Richard Jenkins DO [address] [place] [facility] [place] [address] Referring Hematology/Oncology 05/25/20 Haroldo Noland MD [address] [facility] [address] [place] [address] Cardiology 06/24/20 Sena Seymour, MICHELE Push Button Switch Assembler 10/06/20 Bud Beck DO [address] [facility] [address] [place], [place] [address]371 Gastroenterology 01/15/24 JimymiHelen dickson 01/29/24 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 Start Date End Date Yaw Singh MD [address] [place] [address] PCP - General Family Medicine 08/27/20 Madan Roy MD [address] [place] [address] Physician Radiation Oncology 04/28/20 Luly Gaffney RN Specialty Peoplesoft Fscm Developer Oncology 05/18/20 Richard Jenkins DO [address] [place] [address] Referring Hematology/Oncology 05/25/20 Haroldo Noland MD [address] [place] [address] Cardiology 06/24/20 Sena Seymour, MICHELE Push Button Switch Assembler 10/06/20 Bud Beck DO [address] [place] [address] Gastroenterology 01/15/24 Paige Helen 01/29/24 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 Start Date End Date Yaw Singh MD [address] [place] [address] PCP - General Family Medicine 08/27/20 Madan Roy MD [address] [place] [address] Physician Radiation Oncology 04/28/20 Luly Gaffney RN Specialty Peoplesoft Fscm Developer Oncology 05/18/20 Richard Jenkins DO [address] [place] [address] Referring Hematology/Oncology 05/25/20 Haroldo Noland MD [address] [place] [address] Cardiology 06/24/20 Sena Seymour, MICHELE Push Button Switch Assembler 10/06/20 Bud Beck DO [address] [facility] [address] [place] [address] Gastroenterology 01/15/24 Paige, Helen 01/29/24 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 Start Date End Date Yaw Singh MD [address] [place] [address] PCP - General Family Medicine 08/27/20 Madan Roy MD [address] [place] [facility] [place] [address] Physician Radiation Oncology 04/28/20 Luly Gaffney RN Specialty Peoplesoft Fscm Developer Oncology 05/18/20 Richard Jenkins DO [address] [place] [facility] [place] [address] Referring Hematology/Oncology 05/25/20 Haroldo Noland MD [address] [facility] [address] [place] [address] Cardiology 06/24/20 Sena Seymour, MICHELE Push Button Switch Assembler 10/06/20 Bud Beck DO [address] [facility] [address] [place], [place] [address] Gastroenterology 01/15/24 Jamia, Helen 01/29/24 Maegan Lange, MICHELE [address] [phone] Primary Care Child Development Specialist 02/18/24 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 Start Date End Date Yaw Singh MD [address] [place] [address] PCP - General Family Medicine 08/27/20 Madan Roy MD [address] [place] [address] Physician Radiation Oncology 04/28/20 Luly Gaffney RN Specialty Peoplesoft Fscm Developer Oncology 05/18/20 Richard Jenkins DO [address] [place], [place] 540061 Referring Hematology/Oncology 05/25/20 Haroldo Noland MD [address] [facility] [address] [place], [place] 0068[address] Cardiology 06/24/20 Sena Seymour, MICHELE Push Button Switch Assembler 10/06/20 Bud Beck DO [address] [facility] [address] [place], [place] 134351 Gastroenterology 01/15/24 Helen Gibson 01/29/24 Maegan Lange, MICHELE [address] [phone] Primary Care Child Development Specialist 02/18/24 03/11/24 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 Start Date End Date Yaw Singh MD [address] [place], [place] 618731 PCP - General Family Medicine 08/27/20 Madan Roy MD [address] [place], [place] 996371 Physician Radiation Oncology 04/28/20 Luly Gaffney RN Specialty Peoplesoft Fscm Developer Oncology 05/18/20 Richard Jenkins DO [address] [facility], [place] 582241 Referring Hematology/Oncology 05/25/20 Haroldo Noland MD [address] [facility] [address] [place], [place] 007451 Cardiology 06/24/20 Sena Seymour, MICHELE Push Button Switch Assembler 10/06/20 Bud Beck DO [address] [facility] [address] [place], [place] 69[address]81 Gastroenterology 01/15/24 Helen Gibson 01/29/24 Danielle Kelly APRN.[facility] [address] [place], [place] 736981 Tester Wafer Substrate Family Medicine 03/15/24 Usha Mcgovern PA-C [address] [facility] [place] 547001 Tester Wafer Substrate Family Medicine 03/15/24 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 Start Date End Date Yaw Singh MD [address] [place] [address] PCP - General Family Medicine 08/27/20 Madan Roy MD [address] [place] [address] Physician Radiation Oncology 04/28/20 Luly Gaffney RN Specialty Peoplesoft Fscm Developer Oncology 05/18/20 Richard Jenkins DO [address] [place], [place] 108191 Referring Hematology/Oncology 05/25/20 Haroldo Noland MD [address] [facility] [address] [place], [place] 227941 Cardiology 06/24/20 Sena Seymour, RN Push Button Switch Assembler 10/06/20 Bud Beck DO [address] [facility] [address] [place], [place] 64[address] Gastroenterology 01/15/24 Paige Helen 01/29/24 Danielle Kelly APRN.WILDLIFE CONSERVATION OFFICER [address] [place], [place] [phone] [facility] 03/15/24 Usha Mcgovern PA-C [address] [place], [place] [phone] [facility] 03/15/24 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 Start Date End Date Yaw Singh MD [address] [place], [place] 32930691 PCP - General Family Medicine 08/27/20 Madan Roy MD [address] [place], [place] 60737691 Physician Radiation Oncology 04/28/20 Luly Gaffney RN Specialty Peoplesoft Fscm Developer Oncology 05/18/20 Richard Jenkins DO [address] [facility] [place] [place] [address] Referring Hematology/Oncology 05/25/20 Haroldo Noland MD [address] [facility] [address] [place], [place] 32304691 Cardiology 06/24/20 Sena Seymour, RN Push Button Switch Assembler 10/06/20 Bud Beck DO [address] [id number] Gastroenterology 01/15/24 Star Gibsona 01/29/24 Danielle Kelly APRN.WILDLIFE CONSERVATION OFFICER [address] [place], [place] [id number] Tester Wafer Substrate [facility] 03/15/24 Usha Mcgovern PA-C [address] [place], [place] [id number] [facility] 03/15/24 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 Start Date End Date Yaw Singh MD [address] [place], [place] 75211691 PCP - General Family Medicine 08/27/20 Madan Roy MD [address] [facility] [place] [place] [address] Physician Radiation Oncology 04/28/20 Luly Gaffney RN Specialty Peoplesoft Fscm Developer Oncology 05/18/20 Richard Jenkins DO [address] [facility] [place], [place] 70589[address] Referring Hematology/Oncology 05/25/20 Haroldo Noland MD [address] [facility] [address] [place], [place] 45186691 Cardiology 06/24/20 Sena Seymour RN Push Button Switch Assembler 10/06/20 Bud Beck DO [address] [facility] [address] [place], [place] 51116691 Gastroenterology 01/15/24 Turkbijana, Helen 01/29/24 Danielle Kelly APRN.WILDLIFE CONSERVATION OFFICER [address] [place], [place] 219021 Tester Wafer Substrate Family Medicine 03/15/24 Usha Mcgovern PA-C [address] [place], [place] [phone] Tester Wafer Substrate [facility] 03/15/24 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 Start Date End Date Yaw Singh MD [address] [place], [place] [id number] PCP - General Family Medicine 08/27/20 Madan Roy MD [address] [place] [address] Physician Radiation Oncology 04/28/20 Luly Gaffney RN Specialty Peoplesoft Fscm Developer Oncology 05/18/20 Richard Jenkins DO [address] [place], [place] 10867691 Referring Hematology/Oncology 05/25/20 Haroldo Noland MD [address] [address] Cardiology 06/24/20 Sena Seymour, MICHELE Push Button Switch Assembler 10/06/20 Bud Beck DO [address] [phone] Gastroenterology 01/15/24 Turkbijana, Helen 01/29/24 Danielle Kelly APRN.WILDLIFE CONSERVATION OFFICER [address] [place] [address] Tester Wafer Substrate Family Medicine 03/15/24 Usha Mcgovern PA-C [address] [place], [place] 985281 Tester Wafer Substrate Family [facility] 03/15/24 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 Start Date End Date Yaw Singh MD [address] [place], [place] 473741 PCP - General Family Medicine 08/27/20 Madan Roy MD [address] [place], [place] 970921 Physician Radiation Oncology 04/28/20 Luly Gaffney RN Specialty Peoplesoft Fscm Developer Oncology 05/18/20 Richard Jenkins DO [address] [place], [place] [phone] Referring Hematology/Oncology 05/25/20 Haroldo Noland MD [address] [facility] [address] [place] [address] Cardiology 06/24/20 Sena Seymour, MICHELE Push Button Switch Assembler 10/06/20 Bud Beck DO [address] [facility] [address] [place], [place] 702991 Gastroenterology 01/15/24 Helen Gibson 01/29/24 Danielle Kelly APRN.WILDLIFE CONSERVATION OFFICER [address] [place], [place] [phone] Tester Wafer Substrate Family [facility] 03/15/24 Usha Mcgovern PA-C [address] [facility] [address] Tester Wafer Substrate Family Medicine 03/15/24 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 Start Date End Date Yaw Singh MD [address] [place] [address] PCP - General Family Medicine 08/27/20 Madan Roy MD [address] [place] [facility] [place] [address] Physician Radiation Oncology 04/28/20 Luly Gaffney RN Specialty Peoplesoft Fscm Developer Oncology 05/18/20 Richard Jenkins DO [address] [place] [facility] [place] [address] Referring Hematology/Oncology 05/25/20 Haroldo Noland MD [address] [place] [address] Cardiology 06/24/20 Sena Seymour, RN Push Button Switch Assembler 10/06/20 Bud Beck DO [address] [place] [address] Gastroenterology 01/15/24 Helen Gibson 01/29/24 Danielle Kelly, ADALGISA.WILDLIFE CONSERVATION OFFICER [address] [facility] [place], [place] 3[address] Tester Wafer Substrate Family Medicine 03/15/24 Usha Mcgovern PA-C [address] [place] [address] Tester Wafer Substrate Family Medicine 03/15/24 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 Start Date End Date Yaw Singh MD [address] [place] [address] PCP - General Family Medicine 08/27/20 Madan Roy MD [address] [place] [address] Physician Radiation Oncology 04/28/20 Luly Gaffney RN Specialty Peoplesoft Fscm Developer Oncology 05/18/20 Richard Jenkins DO [address] [place], [place] 210441 Referring Hematology/Oncology 05/25/20 Haroldo Noland MD [address] [place], [place] 523991 Cardiology 06/24/20 Sena Seymour, RN Push Button Switch Assembler 10/06/20 Bud Beck DO [address] [facility] [address] [place], [place] 393351 Gastroenterology 01/15/24 Helen Gibson 01/29/24 Danielle Kelly APRN.WILDLIFE CONSERVATION OFFICER [address] [place], [place] 572581 Tester Wafer Substrate Family Medicine 03/15/24 Usha Mcgovern PA-C [address] [place], [place] [phone] Tester Wafer Substrate Family Medicine 03/15/24 Helen Blair MD [address] [address] Pulmonary and Critical Care Medicine 05/08/24 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 Start Date End Date Yaw Singh MD [address] [place], [place] 514681 PCP - General Family Medicine 08/27/20 Madan Roy MD [address] [place] [address] Physician Radiation Oncology 04/28/20 Luly Gaffney RN Specialty Peoplesoft Fscm Developer Oncology 05/18/20 Richard Jenkins DO [address] [place], [place] 36727691 Referring Hematology/Oncology 05/25/20 Haroldo Noland MD [address] [facility] [address] [place], [place] 169181 Cardiology 06/24/20 Sena Seymour, MICHELE Push Button Switch Assembler 10/06/20 Bud Beck DO [address] [facility] [address] [place], [place] [address]861 Gastroenterology 01/15/24 Helen Gibson 01/29/24 Danielle Kelly APRN.WILDLIFE CONSERVATION OFFICER [address] [place], [place] 599021 Tester Wafer Substrate Family [facility] 03/15/24 Usha Mcgovern PA-C [address] [place], [place] [phone] Tester Wafer Substrate Family Medicine 03/15/24 Helen Blair MD [address] [address] Pulmonary and Critical Care Medicine 05/08/24 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 Start Date End Date Yaw Snigh MD [address] [place] [address] PCP - General Family Medicine 08/27/20 Madan Roy MD [address] [place] [address] Physician Radiation Oncology 04/28/20 Luly Gaffney RN Specialty Peoplesoft Fscm Developer Oncology 05/18/20 Richard Jenkins DO [address] [place] [address] Referring Hematology/Oncology 05/25/20 Haroldo Noland MD [address] [facility] [facility] [address] [place] [address] Cardiology 06/24/20 Sena Seymour, MICHELE Push Button Switch Assembler 10/06/20 Bud Beck DO [address] [facility] [address] [place], [place] 260431 Gastroenterology 01/15/24 Helen Gibson 01/29/24 Danielle Kelly APRN.WILDLIFE CONSERVATION OFFICER [address] [place] [address] Tester Wafer Substrate Family [facility] 03/15/24 Usha Mcgovern PA-C [address] [place] [address] Tester Wafer Substrate Family Medicine 03/15/24 Helen Blair MD [address] [place] [address] Pulmonary and Critical Care Medicine 05/08/24 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 Start Date End Date Yaw Singh MD [address] [place], [place] 355441 PCP - General Family Medicine 08/27/20 Madan Roy MD [address] [place], [place] 566461 Physician Radiation Oncology 04/28/20 Luly Gaffney RN Specialty Peoplesoft Fscm Developer Oncology 05/18/20 Richard Jenkins DO [address] [place], [place] [phone] Referring Hematology/Oncology 05/25/20 Haroldo Noland MD [address] [facility] [address] [place], [place] 047141 Cardiology 06/24/20 Sena Seymour, MICHELE Push Button Switch Assembler 10/06/20 Bud Beck DO [address] [facility] [address] [place], [place] 929821 Gastroenterology 01/15/24 Helen Gibson 01/29/24 Danielle Kelly APRN.WILDLIFE CONSERVATION OFFICER [address] [place], [place] [phone] Tester Wafer Substrate Family Medicine 03/15/24 Usha Mcgovern PA-C [address] [place], [place] [id number] Tester Wafer Substrate Family Medicine 03/15/24 Helen Blair MD [address] [place] [address] [phone] Pulmonary and Critical Care Medicine 05/08/24 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 Start Date End Date Yaw Singh MD [address] [place], [place] 931641 PCP - General Family Medicine 08/27/20 Madan Roy MD [address] [place], [place] [phone] Physician Radiation Oncology 04/28/20 Luly Gaffney RN Specialty Peoplesoft Fscm Developer Oncology 05/18/20 Richard Jenkins DO [address] [place], [place] 29211691 Referring Hematology/Oncology 05/25/20 Haroldo Noland MD [address] [facility] [address] [place] [address] Cardiology 06/24/20 Sena Seymour, MICHELE Push Button Switch Assembler 10/06/20 Bud Beck DO [address] [facility] [address] [place], [place] 990951 Gastroenterology 01/15/24 Helen Gibson 01/29/24 Danielle Kelly APRN.WILDLIFE CONSERVATION OFFICER [address] [place], [place] [id number] Tester Wafer Substrate Family Medicine 03/15/24 Usha Mcgovern PA-C [address] [place], [place] [id number] Tester Wafer Substrate Family Medicine 03/15/24 Helen Blair MD [address] [place] [address] [phone] Pulmonary and Critical Care Medicine 05/08/24 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 Start Date End Date Yaw Singh MD [address] [place], [place] 67579691 PCP - General Family Medicine 08/27/20 Madan Roy MD [address] [place], [place] 14977691 Physician Radiation Oncology 04/28/20 Luly Gaffney RN Specialty Peoplesoft Fscm Developer Oncology 05/18/20 Richard Jenkins DO [address] [place], [place] [id number] Referring Hematology/Oncology 05/25/20 Haroldo Noland MD [address] YOU[address]audia [facility] [address] [place], [place] 459641 Cardiology 06/24/20 Sena Seymour, MICHELE Push Button Switch Assembler 10/06/20 Bud Beck DO [address] [facility] [address] [place], [place] 46608691 Gastroenterology 01/15/24 Helen Gibson 01/29/24 Danielle Kelly, ADALGISA.WILDLIFE CONSERVATION OFFICER [address] [place], [place] [id number] Tester Wafer Substrate Family Medicine 03/15/24 Usha Mcgovern PA-C [address] [place], [place] [phone] Tester Wafer Substrate Family Medicine 03/15/24 Helen Blair MD [address] [place] [address] [phone] Pulmonary and Critical Care Medicine 05/08/24 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 Start Date End Date Yaw Singh MD [address] [place], [place] [id number] PCP - General Family Medicine 08/27/20 Madan Roy MD [address] [place], [place] [phone] Physician Radiation Oncology 04/28/20 Luly Gaffney RN Specialty Peoplesoft Fscm Developer Oncology 05/18/20 Richard Jenkins DO [address] [place], [place] [phone] Referring Hematology/Oncology 05/25/20 Haroldo Noland MD [address] [facility] [address] [place] [address] Cardiology 06/24/20 Sena Seymour, MICHELE Push Button Switch Assembler 10/06/20 Bud Beck DO [address] [facility] [address] [place] [address] Gastroenterology 01/15/24 Helen Gibson 01/29/24 Danielle Kelly, ADALGISA.WILDLIFE CONSERVATION OFFICER [address] [place], [place] [phone] Tester Wafer Substrate Family Medicine 03/15/24 Usha Mcgovern PA-C [address] [place], [place] [id number] Tester Wafer Substrate Family Medicine 03/15/24 Helen Blair MD [address] [place] [address] [phone] Pulmonary and Critical Care Medicine 05/08/24 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 Start Date End Date Yaw Singh MD [address] [place], [place] [id number] PCP - General Family Medicine 08/27/20 Madan Roy MD [address] [place], [place] 53076691 Physician Radiation Oncology 04/28/20 Luly Gaffney RN Specialty Peoplesoft Fscm Developer Oncology 05/18/20 Richard Jenkins DO [address] [place], [place] [phone] Referring Hematology/Oncology 05/25/20 Haroldo Noland MD 17[address] [facility] [address] [place] [address] Cardiology 06/24/20 Sena Seymour, RN Push Button Switch Assembler 10/06/20 Bud Beck DO [address] [facility] [address] [place] [address] Gastroenterology 01/15/24 Helen Gibson 01/29/24 Danielle Kelly, COMPUTER CONSOLE OPERATOR.WILDLIFE CONSERVATION OFFICER [address] [place], [place] [phone] Tester Wafer Substrate Family Medicine 03/15/24 Usha Mcgovern PA-C [address] [place], [place] [phone] Tester Wafer Substrate Family Medicine 03/15/24 Helen Blair MD [address] [place] [address] [phone] Pulmonary and Critical Care Medicine 05/08/24 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 Start Date End Date Yaw Singh MD [address] [place], [place] [id number] PCP - General Family Medicine 08/27/20 Madan Roy MD [address] [place], [place] [phone] Physician Radiation Oncology 04/28/20 Luly Gaffney, MICHELE Specialty Peoplesoft Fscm Developer Oncology 05/18/20 Richard Jenkins DO [address] [place], [place] [phone] Referring Hematology/Oncology 05/25/20 Haroldo Noland MD [address] [facility] [address] [place] [address] Cardiology 06/24/20 Sena Seymour, MICHELE Push Button Switch Assembler 10/06/20 Bud Beck DO [address] [facility] [address] [place], [place] 552991 Gastroenterology 01/15/24 Helen Gibson 01/29/24 Danielle Kelly APRN.WILDLIFE CONSERVATION OFFICER [address] [place], [place] [phone] Tester Wafer Substrate Family Medicine 03/15/24 Usha Mcgovern PA-C [address] [place], [place] [phone] Tester Wafer Substrate Family Medicine 03/15/24 Helen Blair MD [address] [phone] Pulmonary and Critical Care Medicine 05/08/24 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 Start Date End Date Yaw Singh MD [address] [place], [place] 308251 PCP - General Family Medicine 08/27/20 Madan Roy MD [address] [place], [place] [phone] Physician Radiation Oncology 04/28/20 Luly Gaffney RN Specialty Peoplesoft Fscm Developer Oncology 05/18/20 Richard Jenkins DO [address] [place], [place] [phone] Referring Hematology/Oncology 05/25/20 Haroldo Noland MD [address] [facility] [address] [place] [address] Cardiology 06/24/20 Sena Seymour, RN Push Button Switch Assembler 10/06/20 Bud Beck DO [address] [facility] [address] [place], [place] 476351 Gastroenterology 01/15/24 Helen Gibson 01/29/24 Danielle Kelly APRN.WILDLIFE CONSERVATION OFFICER [address] [place], [place] [id number] Tester Wafer Substrate Family Medicine 03/15/24 Usha Mcgovern PA-C [address] [place], [place] [id number] Tester Wafer Substrate Family Medicine 03/15/24 Helen Blair MD [address] [phone] Pulmonary and Critical Care Medicine 05/08/24 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 Start Date End Date Yaw Singh MD [address] [place], [place] 357031 PCP - General Family Medicine 08/27/20 Madan Roy MD [address] [place], [place] [phone] Physician Radiation Oncology 04/28/20 Luly Gaffney, MICHELE Specialty Peoplesoft Fscm Developer Oncology 05/18/20 Richard Jenkins DO [address] [place], [place] [phone] Referring Hematology/Oncology 05/25/20 Haroldo Noland MD [address] [facility] [address] [place] [address] Cardiology 06/24/20 Sena Seymour, MICHELE Push Button Switch Assembler 10/06/20 Bud Beck DO [address] [facility] [address] [place], [place] 783961 Gastroenterology 01/15/24 Helen Gibson 01/29/24 Danielle Kelly APRN.WILDLIFE CONSERVATION OFFICER [address] [place], [place] [phone] Tester Wafer Substrate Family Medicine 03/15/24 Usha Mcgovern PA-C [address] [place], [place] [id number] Tester Wafer Substrate Family Medicine 03/15/24 Helen Blair MD [address] [phone] Pulmonary and Critical Care Medicine 05/08/24 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 Start Date End Date Yaw Singh MD [address] [place] [address] PCP - General Family Medicine 08/27/20 Madan Roy MD [address] [place] [address] Physician Radiation Oncology 04/28/20 Luly Gaffney RN Specialty Peoplesoft Fscm Developer Oncology 05/18/20 Richard Jenkins DO [address] [place], [place] [phone] Referring Hematology/Oncology 05/25/20 Haroldo Noland MD 1761 [facility] [address] [place] [address] Cardiology 06/24/20 Sena Seymour, RN Push Button Switch Assembler 10/06/20 Bud Beck DO [address] [facility] [address] [facility] [address] [place] [address] Gastroenterology 01/15/24 Helen Gibson 01/29/24 Danielle Kelly APRN.WILDLIFE CONSERVATION OFFICER [address] [place], [place] [phone] Tester Wafer Substrate Family Medicine 03/15/24 Usha Mcgovern PA-C [address] [place] [address] Tester Wafer Substrate Family Medicine 03/15/24 Helen Blair MD [address] [address] Pulmonary and Critical Care Medicine 05/08/24 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 Start Date End Date Yaw Singh MD [address] [place] [address] PCP - General Family Medicine 08/27/20 Madan Roy MD [address] [place] [address] Physician Radiation Oncology 04/28/20 Luly Gaffney RN Specialty Peoplesoft Fscm Developer Oncology 05/18/20 Richard Jenkins DO [address] [place] [address] Referring Hematology/Oncology 05/25/20 Haroldo Noland MD [address] [facility] [address] [place] [address] Cardiology 06/24/20 Sena Seymour, RN Push Button Switch Assembler 10/06/20 Bud Beck DO [address] [facility] [address] [place] [address] Gastroenterology 01/15/24 Helen Gibson 01/29/24 Danielle Kelly APRN.WILDLIFE CONSERVATION OFFICER [address] [place] [address] Tester Wafer Substrate Family Medicine 03/15/24 Usha Mcgovern PA-C [address] [place] [address] Tester Wafer Substrate Family Medicine 03/15/24 Helen Blair MD [address] [place] [address] Pulmonary and Critical Care Medicine 05/08/24 Team [...] Provider Active Start : June 30, 2024 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 Start Date End Date Yaw Singh MD [address] [place], [place] [phone] PCP - General Family Medicine 08/27/20 Madan Roy MD [address] [place] [address] Physician Radiation Oncology 04/28/20 Luly Gaffney RN Specialty Peoplesoft Fscm Developer Oncology 05/18/20 Richard Jenkins DO [address] [place], [place] [phone] Referring Hematology/Oncology 05/25/20 Haroldo Noland MD [address] [facility] [address] [place], [place] 079061 Cardiology 06/24/20 Sena Seymour, MICHELE Push Button Switch Assembler 10/06/20 Bud Beck DO [address] [id number] Gastroenterology 01/15/24 Paige Helen 01/29/24 Danielle Kelly APRN.WILDLIFE CONSERVATION OFFICER [address] [place], [place] 770491 Tester Wafer Substrate Family Medicine 03/15/24 Usha Mcgovern PA-C [address] [place] [address] Tester Wafer Substrate Family Medicine 03/15/24 Helen Blair MD [address] [place] [address] Pulmonary and Critical Care Medicine 05/08/24 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 Start Date End Date Yaw Singh MD [address] [place] [address] PCP - General Family Medicine 08/27/20 Madan Roy MD [address] [place] [address] Physician Radiation Oncology 04/28/20 Luly Gaffney RN Specialty Peoplesoft Fscm Developer Oncology 05/18/20 Richard Jenkins DO [address] [place] [address] Referring Hematology/Oncology 05/25/20 Haroldo Noland MD [address]61 [facility] [address] [place], [place] 856011 Cardiology 06/24/20 Sena Seymour, MICHELE Push Button Switch Assembler 10/06/20 Bud Beck DO [address] [facility] [address] [address] Gastroenterology 01/15/24 Helen Gibson 01/29/24 Danielle Kelly APRN.WILDLIFE CONSERVATION OFFICER [address] [place], [place] 078671 Tester Wafer Substrate Family Medicine 03/15/24 Usha Mcgovern PA-C [address] [place] [address] Tester Wafer Substrate Family Medicine 03/15/24 Helen Blair MD [address] [place] [address] Pulmonary and Critical Care Medicine 05/08/24 Josue Oquendo, red capJewelry Mold Maker 07/10/24 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 Start Date End Date Yaw Singh MD [address] [place], [place] [id number] PCP - General Family Medicine 08/27/20 Madan Roy MD [address] [place], [place] 144181 Physician Radiation Oncology 04/28/20 Luly Gaffney RN Specialty Peoplesoft Fscm Developer Oncology 05/18/20 Richard Jenkins DO [address] [place] [address] Referring Hematology/Oncology 05/25/20 Haroldo Noland MD [address] [place], [place] 585451 Cardiology 06/24/20 Sena Seymour, RN Push Button Switch Assembler 10/06/20 Bud Beck DO [address] [place] [address] [place], [place] [phone] Gastroenterology 01/15/24 Helen Gibson 01/29/24 Danielle Kelly APRN.[facility] [address] [place], [place] [phone] [facility] 03/15/24 Usha Mcgovern PA-C [address] [place], [place] [phone] [facility] 03/15/24 Helen Blair MD [address] [place] [address] [phone] Pulmonary and Critical Care Medicine 05/08/24 Josue Oquendo red capJewelry Mold Maker 07/10/24 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 Start Date End Date Yaw Singh MD [address] [place] [address] PCP - General Family Medicine 08/27/20 Madan Roy MD [address] [place], [place] [phone] Physician Radiation Oncology 04/28/20 Luly Gaffney RN Specialty Peoplesoft Fscm Developer Oncology 05/18/20 Richard Jenkins DO [address] [place] [address] Referring Hematology/Oncology 05/25/20 Haroldo Noland MD [address] [place], [place] 518061 Cardiology 06/24/20 Sena Seymour, MICHELE Push Button Switch Assembler 10/06/20 Bud Beck DO [address] [place], [place] [phone] Gastroenterology 01/15/24 Helen Gibson 01/29/24 Danielle Kelly APRN.[facility] [address] [place], [place] [phone] Tester Wafer Substrate [facility] 03/15/24 Usha Mcgovern PA-C [address] [place], [place] [phone] [facility] 03/15/24 Helen Blair MD [address] [phone] Pulmonary and Critical Care Medicine 05/08/24 Josue Oquendo RN Jewelry Mold Maker 07/10/24 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 Start Date End Date Yaw Singh MD [address] [place], [place] [phone] PCP - General Family Medicine 08/27/20 Madan Roy MD [address] [place], [place] 30556691 Physician Radiation Oncology 04/28/20 Luly Gaffney RN Specialty Peoplesoft Fscm Developer Oncology 05/18/20 Richard Jenkins DO [address] [place], [place] [phone] Referring Hematology/Oncology 05/25/20 Haroldo Noland MD [address] [phone] Cardiology 06/24/20 Sena Seymour, MICHELE Push Button Switch Assembler 10/06/20 Bud Beck DO [address] [facility] [address] [place], [place] 921201 Gastroenterology 01/15/24 Helen Gibson 01/29/24 Danielle Kelly APRN.WILDLIFE CONSERVATION OFFICER [address] [place], [place] [phone] [facility] 03/15/24 Usha Mcgovern PA-C [address] [place], [place] [phone] [facility] 03/15/24 Helen Blair MD [address] [phone] Pulmonary and Critical Care Medicine 05/08/24 Josue Oquendo red capJewelry Mold Maker 07/10/24 08/19/24 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 Start Date End Date Yaw Singh MD [address] [place], [place] [id number] PCP - General Family Medicine 08/27/20 Madan Roy MD [address] [place] [address] Physician Radiation Oncology 04/28/20 Luly Gaffney RN Specialty Peoplesoft Fscm Developer Oncology 05/18/20 Richard Jnekins DO [address] [place], [place] [phone] Referring Hematology/Oncology 05/25/20 Haroldo Noland MD [address] [facility] [address] [place], [place] 16736691 Cardiology 06/24/20 Sena Seymour, RN Push Button Switch Assembler 10/06/20 Bud Beck DO [address] [id number] Gastroenterology 01/15/24 Helen Gibson 01/29/24 Danielle Kelly APRN.[facility] [address] [place], [place] [phone] Tester Wafer Substrate [facility] 03/15/24 Usha Mcgovern PA-C [address] [place], [place] [phone] [facility] 03/15/24 Helen Blair MD [address] [phone] Pulmonary and Critical Care Medicine 05/08/24 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 Start Date End Date Yaw Singh MD [address] [place], [place] [phone] PCP - General Family Medicine 08/27/20 Madan Roy MD [address] [place], [place] [phone] Physician Radiation Oncology 04/28/20 Luly Gaffney RN Specialty Peoplesoft Fscm Developer Oncology 05/18/20 Richard Jenkins DO [address] [place], [place] 82713691 Referring Hematology/Oncology 05/25/20 Haroldo Noland MD [address] [facility] [address] [place], [place] 525[address] Cardiology 06/24/20 Sena Seymuor, MICHELE Push Button Switch Assembler 10/06/20 Bud Beck DO [address] 727021 Gastroenterology 01/15/24 Helen Gibson 01/29/24 Danielle Kelly APRN.[facility] [address] [place], [place] [phone] Tester Wafer Substrate [facility] 03/15/24 Usha Mcgovern PA-C [address] [place], [place] [phone] [facility] 03/15/24 Helen Blair MD [address] [phone] Pulmonary and Critical Care Medicine 05/08/24 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 Start Date End Date Yaw Singh MD [address] [place], [place] [phone] PCP - General Family Medicine 08/27/20 Madan Roy MD [address] [facility] [place] [place] [phone] Physician Radiation Oncology 04/28/20 Luly Gaffney RN Specialty Peoplesoft Fscm Developer Oncology 05/18/20 Richard Jenkins DO [address] [facility] [place] [phone] Referring Hematology/Oncology 05/25/20 Haroldo Noland MD [address]Claudia [facility] [address] [place], [place] [phone] Cardiology 06/24/20 Sena Seymour, RN Push Button Switch Assembler 10/06/20 Bud Beck DO [address] 551441 Gastroenterology 01/15/24 Helen Gibson 01/29/24 Danielle Kelly APRN.WILDLIFE CONSERVATION OFFICER [address] [place], [place] [phone] Tester Wafer Substrate Family [facility] 03/15/24 08/24/24 Usha Mcgovern PA-C [address] [place] [address] [phone] Tester Wafer Substrate Family [facility] 03/15/24 Helen Blair MD [address] [phone] Pulmonary and Critical Care Medicine 05/08/24 Josue Oquendo, red capJewelry Mold Maker 07/10/24 08/19/24 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 Start Date End Date Yaw Singh MD [address] [place], [place] [id number] PCP - General Family Medicine 08/27/20 Madan Roy MD [address], [place] [phone] Physician Radiation Oncology 04/28/20 Luly Gaffney RN Specialty Peoplesoft Fscm Developer Oncology 05/18/20 Richard Jenkins DO [address] [place], [place] [phone] Referring Hematology/Oncology 05/25/20 Haroldo Noland MD [address] [facility] [address] [place], [place] 661211 Cardiology 06/24/20 Sena Seymour, RN Push Button Switch Assembler 10/06/20 Friend, Bud Paul DO [address] [facility] [address] [place], [place] 045201 Gastroenterology 01/15/24 Helen Gibson 01/29/24 Usha Mcgovern PA-C [address] [place], [place] [phone] Tester Wafer Substrate Family Medicine 03/15/24 Helen Blair MD [address] [phone] Pulmonary and Critical Care Medicine 05/08/24 Team [...] September 02, 2024 End: September 02, 2024 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 Start Date End Date Yaw Singh MD [address] [place], [place] 649851 PCP - General Family Medicine 08/27/20 Madan Roy MD [address] [address] Physician Radiation Oncology 04/28/20 Luly Gaffney, MICHELE Specialty Peoplesoft Fscm Developer Oncology 05/18/20 Richard Jenkins DO [address] [place] [address] Referring Hematology/Oncology 05/25/20 Haroldo Noland MD [address] [place], [place] 759561 Cardiology 06/24/20 Sena Seymour RN Push Button Switch Assembler 10/06/20 Bud Beck DO [address] [place] [address] [place], [place] 038601 Gastroenterology 01/15/24 Helen Gibson 01/29/24 Usha Mcgovern PA-C [address] [place] [address] Tester Wafer Substrate Family Medicine 03/15/24 Helen Blair MD [address] [phone] Pulmonary and Critical Care Medicine 05/08/24 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 Start Date End Date Yaw Singh MD [address] [place], [place] 628791 PCP - General Family Medicine 08/27/20 Madan Roy MD [address] [place] [address] Physician Radiation Oncology 04/28/20 Luly Gaffney RN Specialty Peoplesoft Fscm Developer Oncology 05/18/20 Richard Jenkins DO [address] [place], [place] 612011 Referring Hematology/Oncology 05/25/20 Haroldo Noland MD [address] AV[address]ia [facility] [address] [place] [address] Cardiology 06/24/20 Sena Seymour, MICHELE Push Button Switch Assembler 10/06/20 Bud Beck DO [address] [facility] [address] [place], [place] 671651 Gastroenterology 01/15/24 Helen Gibson 01/29/24 Helen Blair MD [address] [phone] Pulmonary and Critical Care Medicine 05/08/24 Danielle Kelly APRN.WILDLIFE CONSERVATION OFFICER [address] [place], [place] [phone] [facility] 09/08/24 Usha Mcgovern PA-C [address] [place], [place] 843131 [facility] 09/08/24 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 Start Date End Date Yaw Singh MD [address] [place], [place] [phone] PCP - General Family Medicine 08/27/20 Madan Roy MD [address] [place] [address] Physician Radiation Oncology 04/28/20 Luly Gaffney RN Specialty Peoplesoft Fscm Developer Oncology 05/18/20 Richard Jenkins DO [address] [place], [place] [phone] Referring Hematology/Oncology 05/25/20 Haroldo Noland MD [address] AVCl[address]ia [facility] [address] [place] [address] Cardiology 06/24/20 Sena Seymour, MICHELE Push Button Switch Assembler 10/06/20 Bud Beck DO [address] [facility] [address] [place], [place] 75924691 Gastroenterology 01/15/24 Helen Gibson 01/29/24 Danielle Kelly, ADALGISA.WILDLIFE CONSERVATION OFFICER [address] [place] [address] Tester Wafer Substrate Family Medicine 03/15/24 08/24/24 Usha Mcgovern PA-C [address] [place] [address] [phone] Tester Wafer Substrate Family Medicine 03/15/24 09/07/24 Helen Blair MD [address] [address] Pulmonary and Critical Care Medicine 05/08/24 Josue Oquendo RN Jewelry Mold Maker 07/10/24 08/19/24 Danielle Kelly, ADALGISA.WILDLIFE CONSERVATION OFFICER [facility] [place], [place] 410501 Tester Wafer Substrate Family [facility] 09/08/24 Usha Mcgovern PA-C [facility]0 [place], [place] [phone] Tester Wafer Substrate Family Medicine 09/08/24 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 Start Date End Date Yaw Singh MD [address] [place], [place] [id number] PCP - General Family Medicine 08/27/20 Madan Roy MD [address] [place], [place] 61423691 Physician Radiation Oncology 04/28/20 Luly Gaffney, MICHELE Specialty Peoplesoft Fscm Developer Oncology 05/18/20 Richard Jenkins DO [address] [place], [place] [phone] Referring Hematology/Oncology 05/25/20 Haroldo Noland MD [address]61 [facility] [address] [place] [address] Cardiology 06/24/20 Sena Seymour, MICHELE Push Button Switch Assembler 10/06/20 Bud Beck DO [address]61 [facility] [address] [place], [place] 241341 Gastroenterology 01/15/24 Helen Gibson 01/29/24 Helen Blair MD [address] [address] Pulmonary and Critical Care Medicine 05/08/24 Danielle Kelly APRN.WILDLIFE CONSERVATION OFFICER [address] [place], [place] [phone] Tester Wafer Substrate Family [facility] 09/08/24 Usha Mcgovern PA-C [address] [place] [address] Tester Wafer Substrate Family Medicine 09/08/24 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 Start Date End Date Yaw Singh MD [address] [place], [place] 613911 PCP - General Family Medicine 08/27/20 Madan Roy MD [address] [place], [place] 347361 Physician Radiation Oncology 04/28/20 Luly Gaffney RN Specialty Peoplesoft Fscm Developer Oncology 05/18/20 Richard Jenkins DO [address] [place], [place] [phone] Referring Hematology/Oncology 05/25/20 Haroldo Noland MD [address] [place] [address] Cardiology 06/24/20 Sena Seymour, MICHELE Push Button Switch Assembler 10/06/20 Bud Beck DO [address] [place] [address] [place] [address] Gastroenterology 01/15/24 Helen Gibson 01/29/24 Helen Blair MD [address] [address] Pulmonary and Critical Care Medicine 05/08/24 Danielle Kelly APRN.WILDLIFE CONSERVATION OFFICER [address] [place], [place] [phone] Tester Wafer Substrate Family Medicine 09/08/24 Usha Mcgovern PA-C [address] [place], [place] 025991 Tester Wafer Substrate Family Medicine 09/08/24 Team Status: Inactive Member Role Status Dates Dr. Yaw Singh MD Primary Care Provider Active Start: September 17, 2024 End: September 17, 2024 Dr. Sushant Tom MD Emergency Provider Active Sta rt: September 17, 2024 End: September 17, 2024 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 Start Date End Date Yaw Singh MD [address] [place], [place] 150511 PCP - General Family Medicine 08/27/20 Madan Roy MD [address] [place] [address] Physician Radiation Oncology 04/28/20 Luly Gaffney RN Specialty Peoplesoft Fscm Developer Oncology 05/18/20 Richard Jenkins DO [address] [place] [address] Referring Hematology/Oncology 05/25/20 Haroldo Noland MD [address] [place] [address] Cardiology 06/24/20 Sena Seymour, MICHELE Push Button Switch Assembler 10/06/20 Bud Beck DO [address] [place] [address] [place], [place] 784221 Gastroenterology 01/15/24 Helen Gibson 01/29/24 Helen Blair MD [address] [address] Pulmonary and Critical Care Medicine 05/08/24 Danielle Kelly APRN.WILDLIFE CONSERVATION OFFICER 1740 [facility] [place], [place] 392431 Tester Wafer Substrate Family Medicine 09/08/24 Usha Mcgovern PA-C [address] [place] [address] Tester Wafer Substrate Family Medicine 09/08/24 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 Start Date End Date Yaw Singh MD [address] [place] [address] PCP - General Family Medicine 08/27/20 Madan Roy MD [address] [place] [address] Physician Radiation Oncology 04/28/20 Luly Gaffney RN Specialty Peoplesoft Fscm Developer Oncology 05/18/20 Richard Jenkins DO [address] [place], [place] 832831 Referring Hematology/Oncology 05/25/20 Haroldo Noland MD [address] [place] [address] [place] [address] Cardiology 06/24/20 Sena Seymour, MICHELE Push Button Switch Assembler 10/06/20 Bud Beck DO [address] [place] [address] [place] [address] Gastroenterology 01/15/24 Helen Gibson 01/29/24 Helen Blair MD [address] [phone] Pulmonary and Critical Care Medicine 05/08/24 Danielle Kelly APRN.WILDLIFE CONSERVATION OFFICER 17[address] [facility] [place], [place] 860371 Tester Wafer Substrate Family Medicine 09/08/24 Usha Mcgovern PA-C [address] [place] [address] Tester Wafer Substrate Family [facility] 09/08/24 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 Start Date End Date Yaw Singh MD [address] [facility] [place] 522681 PCP - General Family Medicine 08/27/20 Madan Roy MD [address] [place] [address] Physician Radiation Oncology 04/28/20 Luly Gaffney RN Specialty Peoplesoft Fscm Developer Oncology 05/18/20 Richard Jenkins DO [address] [facility], [place] [phone] Referring Hematology/Oncology 05/25/20 Haroldo Noland MD [address] [facility] [address] [place] [address] Cardiology 06/24/20 Sena Seymour, MICHELE Push Button Switch Assembler 10/06/20 Bud Beck DO [address] [place], [place] 630231 Gastroenterology 01/15/24 Helen Gibson 01/29/24 Helen Blair MD [address] [place] [address] [phone] Pulmonary and Critical Care Medicine 05/08/24 Danielle Kelly APRN.WILDLIFE CONSERVATION OFFICER 1740 [facility] [place], [place] 866921 Tester Wafer Substrate Family Medicine 09/08/24 Usha Mcgovern PA-C [address] [place] [address] Tester Wafer Substrate [facility] 09/08/24 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 Start Date End Date Yaw Singh MD [address] [facility] [place] 765201 PCP - General Family Medicine 08/27/20 Madan Roy MD [address] [place], [place] 657341 Physician Radiation Oncology 04/28/20 Luly Gaffney RN Specialty Peoplesoft Fscm Developer Oncology 05/18/20 Richard Jenkins DO [address] [place], [place] [phone] Referring Hematology/Oncology 05/25/20 Haroldo Noland MD [address] [facility] [address] [place], [place] 083521 Cardiology 06/24/20 Sena Seymour, RN Push Button Switch Assembler 10/06/20 Bud Beck DO [address] [facility] [address] [place], [place] 133601 Gastroenterology 01/15/24 Helen Gibson 01/29/24 Helen Blair MD [address] [place] [address] [phone] Pulmonary and Critical Care Medicine 05/08/24 Danielle Kelly APRN.WILDLIFE CONSERVATION OFFICER [address] [place], [place] 458211 Tester Wafer Substrate Family [facility] 09/08/24 Usha Mcgovern PA-C [address] [place], [place] [phone] Tester Wafer Substrate [facility] 09/08/24 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 Start Date End Date Yaw Singh MD [address] [place], [place] [phone] PCP - General Family Medicine 08/27/20 Madan Roy MD [address] [place], [place] 97833691 Physician Radiation Oncology 04/28/20 Luly Gaffney RN Specialty Peoplesoft Fscm Developer Oncology 05/18/20 Richard Jenkins DO [address] [place], [place] [phone] Referring Hematology/Oncology 05/25/20 Haroldo Noland MD [address] [facility] [address] [place], [place] 886921 Cardiology 06/24/20 Sena Seymour, RN Push Button Switch Assembler 10/06/20 Bud Beck DO [address] [facility] [address] [place], [place] [id number] Gastroenterology 01/15/24 Helen Gibson 01/29/24 Helen Blair MD [address] [place] [address] [phone] Pulmonary and Critical Care Medicine 05/08/24 Danielle Kelly APRN.WILDLIFE CONSERVATION OFFICER [address] [place], [place] 37[address] Tester Wafer Substrate [facility] 09/08/24 Usha Mcgovern PA-C [address] [place], [place] [phone] Tester Wafer Substrate [facility] 09/08/24 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 Start Date End Date Yaw Singh MD [address] [place], [place] [phone] PCP - General Family Medicine 08/27/20 Madan Roy MD [address] [place], [place] 30306691 Physician Radiation Oncology 04/28/20 Luly Gaffney RN Specialty Peoplesoft Fscm Developer Oncology 05/18/20 Richard Jenkins DO [address] [place], [place] [phone] Referring Hematology/Oncology 05/25/20 Haroldo Noland MD [address] [place], [place] 153331 Cardiology 06/24/20 Sena Seymour, RN Push Button Switch Assembler 10/06/20 Bud Beck DO [address] [place], [place] [id number] Gastroenterology 01/15/24 Helen Gibson 01/29/24 Helen Blair MD [address] [place] [address] [phone] Pulmonary and Critical Care Medicine 05/08/24 Danielle Kelly APRN.WILDLIFE CONSERVATION OFFICER [address] [place], [place] [phone] [facility] 09/08/24 Usha Mcgovern PA-C [address] [place], [place] [phone] [facility] 09/08/24 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 Start Date End Date Yaw Singh MD [address] [place], [place] [phone] PCP - General Family Medicine 08/27/20 Madan Roy MD [address] [place], [place] [phone] Physician Radiation Oncology 04/28/20 Luly Gaffney RN Specialty Peoplesoft Fscm Developer Oncology 05/18/20 Richard Jenkins DO [address] [place], [place] [phone] Referring Hematology/Oncology 05/25/20 Haroldo Noland MD [address] [place], [place] [id number] Cardiology 06/24/20 Sena Seymour, MICHELE Push Button Switch Assembler 10/06/20 Bud Beck DO [address] [place], [place] [id number] Gastroenterology 01/15/24 Helen Gibson 01/29/24 Helen Blair MD [address] [place] [address] [phone] Pulmonary and Critical Care Medicine 05/08/24 Danielle Kelly APRN.WILDLIFE CONSERVATION OFFICER [address] [place], [place] [phone] [facility] 09/08/24 Usha Mcgovern PA-C [address] [place] [address] [facility] 09/08/24 Team Status: Active Member Role/Relationship Status [...] Provider Active Start : October 15, 2024 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 Start Date End Date Yaw Singh MD [address] [place], [place] [phone] PCP - General Family Medicine 08/27/20 Madan Roy MD [address] [place], [place] [phone] Physician Radiation Oncology 04/28/20 Luly Gaffney RN Specialty Peoplesoft Fscm Developer Oncology 05/18/20 Richard Jenkins DO [address] [place], [place] [phone] Referring Hematology/Oncology 05/25/20 Haroldo Noland MD [address] [facility] [address] [place], [place] 120781 Cardiology 06/24/20 Sena Seymour, RN Push Button Switch Assembler 10/06/20 Kiran Bud HumbertoDO [address] [facility] [address] [place], [place] 469621 Gastroenterology 01/15/24 Helen Gibson 01/29/24 Helen Blair MD [address] [phone] Pulmonary and Critical Care Medicine 05/08/24 Danielle Kelly APRN.[facility] [address] [place], [place] 079821 Tester Wafer Substrate Family Medicine 09/08/24 Usha Mcgovern PA-C [address] [place], [place] [phone] Tester Wafer Substrate [facility] 09/08/24 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 Start Date End Date Yaw Singh MD [address] [place], [place] [phone] PCP - General Family Medicine 08/27/20 Madan Roy MD [address] [place], [place] 239821 Physician Radiation Oncology 04/28/20 Luly Gaffney RN Specialty Peoplesoft Fscm Developer Oncology 05/18/20 Richard Jenkins DO [address] [place], [place] 259771 Referring Hematology/Oncology 05/25/20 Haroldo Noland MD [address] [facility] [address] [place], [place] 563341 Cardiology 06/24/20 Sena Seymour, RN Push Button Switch Assembler 10/06/20 Bud Beck DO [address] [facility] [address] [place], [place] 561651 Gastroenterology 01/15/24 Star Gibsona 01/29/24 Helen Blair MD [address] [phone] Pulmonary and Critical Care Medicine 05/08/24 Danielle Kelly APRN.[facility] [address] [place], [place] 203301 Tester Wafer Substrate Family [facility] 09/08/24 Usha Mcgovern PA-C [address] [place], [place] [phone] [facility] 09/08/24 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 Start Date End Date Yaw Singh MD [address] [place], [place] [id number] PCP - General Family Medicine 08/27/20 Madan Roy MD [address] [facility] [place] [place] 302141 Physician Radiation Oncology 04/28/20 Luly Gaffney RN Specialty Peoplesoft Fscm Developer Oncology 05/18/20 Richard Jenkins DO [address] [facility] [place] [phone] Referring Hematology/Oncology 05/25/20 Haroldo Noland MD [address] [facility] [address] [place], [place] 802161 Cardiology 06/24/20 Sena Seymour, RN Push Button Switch Assembler 10/06/20 Bud Beck DO [address] [facility] [address] [place], [place] 743671 Gastroenterology 01/15/24 Helen Gibson 01/29/24 Helen Blair MD [address] [facility]. [address] [place] [address] [phone] Pulmonary and Critical Care Medicine 05/08/24 Danielle Kelly APRN.[facility] [address] [place], [place] [address]201 Tester Wafer Substrate Family [facility] 09/08/24 Usha Mcgovern PA-C [address] [place], [place] [phone] Formerly [facility] 09/08/24 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 Start Date End Date Yaw Singh MD [address] [place], [place] [id number] PCP - General Family Medicine 08/27/20 Madan Roy MD [address] [place], [place] [phone] Physician Radiation Oncology 04/28/20 Luly Gaffney RN Specialty Peoplesoft Fscm Developer Oncology 05/18/20 Richard Jenkins DO [address] [facility] [place], [place] [phone] Referring Hematology/Oncology 05/25/20 Haroldo Noland MD [address] [facility] [address] [place], [place] [address] Cardiology 06/24/20 Sena Seymour, RN Push Button Switch Assembler 10/06/20 Bud Beck DO [address] [facility] [address] [place], [place] [id number] Gastroenterology 01/15/24 Helen Gibson 01/29/24 Helen Blair MD [address] [id number] Pulmonary and Critical Care Medicine 05/08/24 Danielle Kelly APRN.[facility] [address] [place], [place] [id number] Tester Wafer Substrate Family [facility] 09/08/24 Usha Mcgovern PA-C [address] [place], [place] [phone] Formerly [facility] 09/08/24 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 Start Date End Date Yaw Singh MD [address] [place], [place] [id number] PCP - General Family Medicine 08/27/20 Madan Roy MD [address] [place], [place] [phone] Physician Radiation Oncology 04/28/20 Luly Gaffney RN Specialty [employer]oples[employer] Fscm Developer Oncology 05/18/20 Richard Jenkins DO [address] [facility] [place], [place] [phone] Referring Hematology/Oncology 05/25/20 Haroldo Noland MD [address] [facility] [address] [place], [place] [address] Cardiology 06/24/20 Sena Seymour, RN Push Button Switch Assembler 10/06/20 Bud Beck DO [address] [facility] [address] [place], [place] [address] Gastroenterology 01/15/24 Helen Gibson 01/29/24 Helen Blair MD [address] [phone] Pulmonary and Critical Care Medicine 05/08/24 Danielle Kelly APRN.[facility] [address] [place], [place] [phone] Tester Wafer Substrate Family [facility] 09/08/24 Usha Mcgovern PA-C [address] [place], [place] [phone] Tester Wafer Substrate [facility] 09/08/24 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 Start Date End Date Yaw Singh MD [address] [place], [place] [phone] PCP - General Family Medicine 08/27/20 Madan Roy MD [address] [place], [place] [phone] Physician Radiation Oncology 04/28/20 Luly Gaffney RN Specialty Peoples[employer] Fscm Developer Oncology 05/18/20 Richard Jenkins DO [address] [facility] [place], [place] [phone] Referring Hematology/Oncology 05/25/20 Haroldo Noland MD [address] [facility] [address] [place], [place] [address] Cardiology 06/24/20 Sena Seymour, MICHELE Push Button Switch Assembler 10/06/20 Bud Beck DO [address] [facility] [address] [place], [place] [address] Gastroenterology 01/15/24 Star Gibsona 01/29/24 Helen Blair MD [address] [phone] Pulmonary and Critical Care Medicine 05/08/24 Danielle Kelly APRN.[facility] [address] [place], [place] [phone] Tester Wafer Substrate Family Medicine 09/08/24 Usha Mcgovern PA-C [address] [place], [place] [phone] Tester Wafer Substrate Family [facility] 09/08/24 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 Start Date End Date Yaw Singh MD [address] [place], [place] [phone] PCP - General Family Medicine 08/27/20 Madan Roy MD [address] [facility] [place] [place] [phone] Physician Radiation Oncology 04/28/20 Luly Gaffney RN Specialty [employer] Fscm Developer Oncology 05/18/20 Richard Jenkins DO [address] [place], [place] [phone] Referring Hematology/Oncology 05/25/20 Haroldo Noland MD [address] [facility] [address] [place], [place] [address] Cardiology 06/24/20 Sena Seymour, RN Push Button Switch Assembler 10/06/20 Friend, Bud HumbertoDO [address] [facility] [address] [place], [place] [address] Gastroenterology 01/15/24 Helen Gibson 01/29/24 Helen Blair MD [address] [phone] Pulmonary and Critical Care Medicine 05/08/24 Danielle Kelly, ADALGISA.WILDLIFE CONSERVATION OFFICER [address] [place], [place] [phone] Tester Wafer Substrate Family [facility] 09/08/24 Usha Mcgovern PA-C [address] [place], [place] [phone] Tester Wafer Substrate [facility] 09/08/24 Team Status: Inactive Member Role/Relationship Status [...] December 03, 2024 End: December 03, 2024 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 Start Date End Date Yaw Singh MD [address] [place], [place] [phone] PCP - General Family Medicine 08/27/20 Madan Roy MD [address] [place], [place] [phone] Physician Radiation Oncology 04/28/20 Luly Gaffney RN Specialty Peoplesoft Fscm Developer Oncology 05/18/20 Richard Jenkins DO [address] [place], [place] [phone] Referring Hematology/Oncology 05/25/20 Haroldo Noland MD [address] [facility] [address] [address] Cardiology 06/24/20 Sena Seymour, MICHELE Push Button Switch Assembler 10/06/20 Bud Beck DO [address] [id number] Gastroenterology 01/15/24 Helen Gibson 01/29/24 Helen Blair MD [address] [address] Pulmonary and Critical Care Medicine 05/08/24 Danielle Kelly APRN.[facility] [address] [place], [place] [phone] Tester Wafer Substrate Family Medicine 09/08/24 Usha Mcgovern PA-C [address] [place], [place] [address] Tester Wafer Substrate Family Medicine 09/08/24 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 Start Date End Date Yaw Singh MD [address] [place], [place] [phone] PCP - General Family Medicine 08/27/20 Madan Roy MD [address] [facility] [place] [address] Physician Radiation Oncology 04/28/20 Luly Gaffney, MICHELE Specialty Peoplesoft Fscm Developer Oncology 05/18/20 Richard Jenkins DO [address] [facility] [place], [place] [phone] Referring Hematology/Oncology 05/25/20 Haroldo Noland MD [address] [facility] [address] [place] [address] Cardiology 06/24/20 Sena Seymour, RN Push Button Switch Assembler 10/06/20 Bud Beck DO [address] [facility] [address] [place], [place] [address] Gastroenterology 01/15/24 Helen Gibson 01/29/24 Helen Blair MD [address] [address] Pulmonary and Critical Care Medicine 05/08/24 Danielle Kelly APRN.[facility] [address] [place], [place] [address] Tester Wafer Substrate Family Medicine 09/08/24 Usha Mcgovern PA-C [address] [place], [place] [address] Tester Wafer Substrate Family Medicine 09/08/24 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 Start Date End Date Yaw Singh MD [address] [place], [place] [address] PCP - General Family Medicine 08/27/20 Madan Roy MD [address] [place] [address] Physician Radiation Oncology 04/28/20 Luly Gaffney RN Specialty Peoplesoft Fscm Developer Oncology 05/18/20 Richard Jenkins DO [address] [place] [address] Referring Hematology/Oncology 05/25/20 Haroldo Noland MD [address] [facility] [address] [place], [place] [address] Cardiology 06/24/20 Sena Seymour, MICHELE Push Button Switch Assembler 10/06/20 Friend, Bud Paul DO [address] [facility] [address] [place], [place] [address] Gastroenterology 01/15/24 Helen Gibson 01/29/24 Helen Blair MD [address] [place] [address] Pulmonary and Critical Care Medicine 05/08/24 Danielle Kelly APRN.W[employer] CON[employer]ATION OFFICER [address] [place], [place] [phone] Formerly [facility] 09/08/24 Usha Mcgovern PA-C [address] [place], [place] [phone] [facility] 09/08/24 Goals (unrecognized section and content) Goals [...] BE BASED ON THE PRIMARY CLINICAL RECORDS. [employer] [facility]. provides no warranty or guarantee of the accuracy or completeness of information in this document.
--- NOTE | 2025-03-06 02:43 | PCM.HP.STD ---
HPI - General General Date of Admission: 03/06/25 Date of Service: 03/06/25 Chief Complaint: Left thigh pain and limited mobility HPI Narrative NICKO ROSALES, is a 69 M who presents new onset left thigh pain causing significant difficulty in ambulation or movements. He has a history of ESRD with residual kidney function on hemodialysis Sunday, Sunday, schedule, TAVR and CAD (quadruple bypass, multiple stents) who had a procedure by vascular surgery few days ago to his left arm AV fistula, on that day he suddenly felt sudden onset pain in the left thigh associated with difficulty walking, it progressed to the degree that he cannot walk or move the side anymore. No associated redness, swelling or color changes of the overlying skin. The pain radiates to the left hip. No history of falling, trauma, abnormal movements or unusual exertion. In the ED patient had CTA that showed no acute vascular abnormality affecting his lower extremity. No mention of soft tissue or muscle changes or swelling on CT. His left hip arthroplasty is intact The left anterior medial thigh is tender and slightly swollen with no color or temperature changes. CPK normal Upon attempting to ambulate the patient before discharge, he could not walk few steps because of severe pain in the left thigh. Patient will be placed under observation for pain control, physical therapy evaluation and he needs his scheduled hemodialysis today Sunday (moved from because of the holiday) [facility] Medical History (Updated 03/06/25 @ 02:[address] Gagan Ervin MD) Pleural effusion Thrombocytopenia Wears glasses Cancer Cancer Pressure ulcer History of renal dialysis History of renal disease Injury of back History of GI bleed Gastric reflux Shortness of breath on exertion History of stress test History of echocardiogram Cardiology follow-up encounter Thrombus of venous dialysis catheter ESRD (end stage renal disease) on dialysis Acute respiratory insufficiency Medical non-compliance Acute exacerbation of chronic heart failure Chronic kidney disease (CKD) Dyspnea Acute kidney injury Adenocarcinoma of esophagus LEELA (acute kidney injury) Non-smoker Esophageal carcinoma Atherosclerosis of coronary artery of [place] heart without angina pectoris 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 Essential (primary) hypertension Non-rheumatic aortic stenosis Syncope and collapse Hyperlipidemia Atherosclerotic heart disease of [place] coronary artery with other forms of angina pectoris Encounter for long-term current use of high risk medication abnormal stress test Angina pectoris Exertional chest pain Home Medications Medication Instructions Recorded Last Taken Type atorvastatin 80 mg tablet 80 mg PO QHS CHOLESTEROL #90 tabs 05/15/22 12/24/23 Rx ezetimibe 10 mg tablet 10 mg PO DAILY CHOLESTEROL #90 tabs 05/15/22 12/24/23 Rx metoprolol tartrate 25 mg tablet 25 mg PO BID #0 tabs 10/25/23 06/30/24 05:30 Rx pantoprazole 40 mg tablet,delayed 40 mg PO BID #0 tabs 10/25/23 06/30/24 05:30 Rx release ferrous sulfate 325 mg (65 mg 325 mg PO DAILY #90 tabs 11/20/23 06/29/24 Rx iron) tablet polyethylene glycol 3350 17 17 g PO DAILY PRN constipation 12/04/23 Unknown History gram/dose oral powder (Miralax) ondansetron 4 mg disintegrating 4 mg PO Q8H PRN PRN nausea and 12/25/23 12/25/23 08:00 History tablet vomiting nitroglycerin 0.4 mg sublingual 0.4 mg sublingual PRN PRN angina 02/14/24 Unknown History tablet aspirin 81 mg chewable tablet 81 mg PO BID #0 tabs 02/17/24 03/03/25 Rx acetaminophen 500 mg tablet 1,000 mg PO Q8 PRN pain 04/29/24 Unknown History amoxicillin 500 mg tablet 2,000 mg (4 x 500 mg) PO ONCE #4 04/29/24 Unknown Rx tabs oxycodone 5 mg tablet 5 mg PO Q8H PRN pain 2 days #6 tabs 06/30/24 Unknown Rx oxycodone-acetaminophen 5 mg-325 1 tab PO Q6H PRN PRN pain 5 days 09/17/24 Unknown Rx mg tablet #20 TABLETS Allergy/AdvReac Type Severity Reaction Status Date / Time No Known Allergies Allergy Verified 03/05/25 16:46 Family History Father Heart disease Myocardial infarction Hypertension Brother Hypertension Sister Heart disease Myocardial infarction Surgical History History of hip replacement (~02/2024) History of cardiac catheterization History of esophagogastroduodenoscopy (EGD) Hx of surgical procedure History of aortic valve replacement (03/03/19) History of coronary artery stent placement (12/31/18) H/O coronary artery bypass surgery (09/18/02) History of tonsillectomy History of hernia repair Social History Smoking Status: Never smoker alcohol intake: never substance use type: does not use caffeine: No what type of physical activity do you participate in: walking frequency: daily ROS Constitutional Constitutional: Denies fever(s) or poor appetite ENT HEENT: Reports none Cardiovascular Cardiovascular: Denies chest pain or dyspnea Respiratory/Chest Respiratory/Chest: Denies cough or wheezing Gastrointestinal Gastrointestinal: Denies abdominal pain or change in bowel habits Genitourinary Genitourinary: Reports other Details: He still makes urine, around 3 times a day Musculoskeletal Musculoskeletal: Reports myalgias and other Details: Left thigh muscle pain ; Denies arthralgias Integumentary Integumentary: Reports none Neurologic Neurologic: Denies abnormal speech, dizziness, focal weakness, loss of vision or numbness Hematologic/Lymphatic Hematologic/Lymphatic: Reports none Vital Signs Vital Signs Vital Signs: 03/05/25 16:44 03/05/25 18:46 03/05/25 19:45 Temperature 98.1 F Temperature Source Temporal Pulse Rate 90 84 90 Respiratory Rate 22 H 21 H 14 Respiratory Effort Respiratory Depth Respiratory Pattern Blood Pressure 129/78 H 125/69 H 125/69 H Blood Pressure Mean 95 87 87 Blood Pressure Source Blood Pressure Position Blood Pressure Location Pulse Ox 99 95 92 Oxygen Delivery Method Room Air Room Air 03/05/25 21:00 03/05/25 23:16 03/06/25 01:18 Temperature Temperature Source Pulse Rate 84 88 86 Respiratory Rate 35 H 24 H Respiratory Effort Respiratory Depth Respiratory Pattern Blood Pressure 124/71 H 125/67 H 120/76 Blood Pressure Mean 88 86 90 Blood Pressure Source Blood Pressure Position Blood Pressure Location Pulse Ox 99 100 97 Oxygen Delivery Method Room Air Room Air Room Air 03/06/25 01:18 03/06/25 02:07 03/06/25 02:22 Temperature 98.0 F 98.3 F Temperature Source Oral Pulse Rate 86 100 Respiratory Rate 24 H 18 Respiratory Effort Normal Non-Labored Respiratory Depth Normal Respiratory Pattern Normal Blood Pressure 120/76 130/79 H Blood Pressure Mean 90 96 Blood Pressure Source Monitor Blood Pressure Position Semi-Fowlers Blood Pressure Location Right Arm Pulse Ox 100 99 Oxygen Delivery Method Room Air Room Air Weight Weight: 66.3 kg Body Mass Index (BMI) 21.6 Physical Exam Const alert and oriented x3 HEENT normocephalic and head/scalp atraumatic Eyes EOMs intact bilaterally; Negative for no scleral icterus Neck supple Resp normal respiratory effort and clear to auscultation bilaterally Cardio regular rate and regular rhythm; Negative for no murmurs GI normal to inspection, nondistended, normoactive bowel sounds; Negative for non-tender no CVA tenderness Extremity no joint enlargement and no clubbing, cyanosis or edema Extremity Narrative: Left thigh, anterior medial side shows a swelling that is very tender but with normal temperature and color compared to the right side. Skin no rashes or lesions noted Neuro oriented x3 and moves all extremities Results Lab / Micro Data 03/05/25 17:35 03/05/25 17:35 Labs: Laboratory Results - last 24 hr 03/05/25 17:35: WBC 9.5, RBC 3.84 L, Hgb 11.8 L, Hct 36.0 L, MCV 93.8, MCH 30.7, MCHC 32.8, RDW Std Deviation 46.2 H, RDW Coeff of Marcos 13.6, Plt Count 141 L, MPV 9.5, Immature Gran % (Auto) 0.500, Neut % (Auto) 88.4 H, Lymph % (Auto) 3.5 L, [place] % (Auto) 7.3, Eos % (Auto) 0.1, Baso % (Auto) 0.2, Absolute Neuts (auto) 8.4 H, Absolute Lymphs (auto) 0.33 L, Nucleated RBC % 0, PT 19.7 H, INR 1.6, APTT 39.6 H, Sodium 135, Potassium 4.0, Chloride 94 L, Carbon Dioxide 29.4, Anion Gap 11, BUN 35 H, Creatinine 2.80 H, Estim Creat Clear Calc 23.09 L, Est GFR (MDRD) Non-Af 24 L, BUN/Creatinine Ratio 12.5, Glucose 125 H, Lactic Acid 1.3, Calcium 9.0, Total Creatine Kinase 26 Imaging Radiology Impression Abdomen/Pelvis CTA 03/05/25 18:12 IMPRESSION: Advanced peripheral atherosclerotic vascular disease as described. There is runoff to the left ankle/foot via the posterior tibial artery, but the anterior tibial and peroneal arteries are not definitively patent in the lower leg. Similar findings in the right leg. Conventional angiography could better evaluate. No acute or aggressive osseous abnormality appreciated. Multiple additional chronic/degenerative ancillary findings as noted above. Reading Location: [facility] Assessment & Plan Assessment/Plan (1) Myalgia of lower extremity: (2) End stage renal disease on dialysis: (3) Pleural effusion: (4) History of coronary artery disease: PLAN: Plan 69-year-old man comes in with unexplained left side muscle pain and swelling causing severely restricted mobility. Patient needs observation for pain control and physical therapy evaluation as he was unable to ambulate for discharge from the ED Left thigh myalgia: Unclear etiology. He is on atorvastatin 80 mg which can definitely cause myalgia (pain) or myopathy (weakness), both with normal CK, and can happen at any time. May be a localized myositis. No evidence of rhabdomyolysis given his normal CK. Hold Lipitor and reassess symptoms. Patient has complicated CAD, may resume lower dose if symptoms improve or switch to pravastatin (but it is a lower intensity statin) Physical therapy evaluation. ESRD: Next dialysis is Sunday because was a holiday and then he will resume his schedule starting Sunday (Sun, , ). Nephrology consult is placed He states no fluid is removed during his outpatient sessions, indeed he sometimes get fluids in during dialysis. CT showed moderate left effusion reported as loculated, so less likely transudative from fluid overload Pleural effusion: Moderate left and small right. Report as loculated so this is unlikely pure fluid overload. No shortness of breath. He is on room air CAD: Continue home medications except Lipitor Charges/Coding Visit Charges OBSV E&M: 09902 Observ/hosp same date L3
[2025-03-06] MEDS: Heparin Injection (Vial) 5,000 UNIT/ML VIAL 5000 UNIT SC ×2 (08:33→20:04)
--- NOTE | 2025-03-06 11:04 | CON.PCM.RE_ITS ---
Assessment & Plan Assessment/Plan (1) End stage renal disease on dialysis: (2) HTN (hypertension): PLAN: Plan Assessment/Plan: Patient is a 69-year-old male with past history of ESRD, hypertension, CAD status post CABG in PCI, aortic stenosis status post TAVR, HFpEF, esophageal cancer, anemia, GERD, osteoarthritis, and hyperlipidemia. Patient presented to hospital on 03/05/2025 with 1-day history of left thigh pain and leg pain which worsens with ambulation. CTA done on 03/05/2025 shows advanced PAD of lower extremities. Patient is admitted to the hospital for further investigation and treatment. Nephrology is following for ESRD and dialysis management. ESRD. Patient usually dialyzes on TTS schedule at [facility] [place]. Because of IV contrast exposure within the last 24 hours, we will dialyze patient today and again tomorrow to keep him on outpatient dialysis schedule. Hypertension. BP is controlled. He is on metoprolol at low-dose only. Will monitor BP postdialysis. Left lower extremity pain. Suspect claudication as main cause of pain. Patient does not have any rest pain of lower extremity. Pain is exacerbated with ambulation. CTA does show advanced PAD. May benefit from vascular evaluation while he is in the hospital. Will defer to hospital medicine service. HPI Consult Data Date of Consult: 03/06/25 HPI Narrative Reason for Consultation: ESRD HPI Narrative: Patient is a 69-year-old male with past history of ESRD, hypertension, CAD status post CABG in PCI, aortic stenosis status post TAVR, HFpEF, esophageal cancer, anemia, GERD, osteoarthritis, and hyperlipidemia. The patient presented to hospital on 03/05/2025 because of 1-day history of left thigh pain and leg pain when he ambulates. CTA of left lower extremity did revealed advanced peripheral artery disease of the left lower extremity. CPK is normal. Patient denies rest pain. Patient is admitted to hospital for further evaluation. Nephrology is asked to see the patient because of ESRD and for dialysis management. Patient usually dialyzes on TTS schedule at [facility] dialysis [place]. Patient was last dialyzed on 03/03/2025. Patient was not dialyzed yesterday on 03/04/2025 because of holiday. Patient denies chest pain, dyspnea, nausea or vomiting. There is no edema of the lower extremities. PFSH Medical History (Updated 03/06/25 @ 12:[address] Jeffrey Vieira MD) Pleural effusion Thrombocytopenia Wears glasses Cancer Cancer Pressure ulcer History of renal dialysis History of renal disease Injury of back History of GI bleed Gastric reflux Shortness of breath on exertion History of stress test History of echocardiogram Cardiology follow-up encounter Thrombus of venous dialysis catheter ESRD (end stage renal disease) on dialysis Acute respiratory insufficiency Medical non-compliance Acute exacerbation of chronic heart failure Chronic kidney disease (CKD) Dyspnea Acute kidney injury Adenocarcinoma of esophagus LEELA (acute kidney injury) Non-smoker Esophageal carcinoma Atherosclerosis of coronary artery of [place] heart without angina pectoris 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 Essential (primary) hypertension Non-rheumatic aortic stenosis Syncope and collapse Hyperlipidemia Atherosclerotic heart disease of [place] coronary artery with other forms of angina pectoris Encounter for long-term current use of high risk medication abnormal stress test Angina pectoris Exertional chest pain Home Medications Medication Instructions Recorded Last Taken Type atorvastatin 80 mg tablet 80 mg PO QHS CHOLESTEROL #90 tabs 05/15/22 12/24/23 Rx ezetimibe 10 mg tablet 10 mg PO DAILY CHOLESTEROL # 90 tabs 05/15/22 12/24/23 Rx metoprolol tartrate 25 mg tablet 25 mg PO BID #0 tabs 10/25/23 06/30/24 05:30 Rx pantoprazole 40 mg tablet,delayed 40 mg PO BID #0 tabs 10/25/23 06/30/24 05:30 Rx release ferrous sulfate 325 mg (65 mg 325 mg PO DAILY #90 tabs 11/20/23 06/29/24 Rx iron) tablet polyethylene glycol 3350 17 17 g PO DAILY PRN constipa tion 12/04/23 Unknown History gram/dose oral powder (Miralax) ondansetron 4 mg disintegrating 4 mg PO Q8H PRN PRN na usea and 12/25/23 12/25/23 08:00 History tablet vomiting nitroglycerin 0.4 mg sublingual 0.4 mg sublingual PRN PRN angina 02/14/24 Unknown History tablet aspirin 81 mg chewable tablet 81 mg PO BID #0 tabs 01/3003/03/25 Rx acetaminophen 500 mg tablet 1,000 mg PO Q8 PRN pain Unknown History amoxicillin 500 mg tablet 2,000 mg (4 x 500 mg) PO ONC E #4 04/29/24 Unknown Rx tabs oxycodone 5 mg tablet 5 mg PO Q8H PRN pain 2 days #6 tabs 06/30/24 Unknown Rx oxycodone-acetaminophen 5 mg-325 1 tab PO Q6H PRN PRN pain 5 days 09/17/24 Unknown Rx mg tablet #20 TABLETS Allergy/AdvReac Type Severity Reaction Status Date / Time No Known Allergies Allergy Verified 03/05/25 16:46 Family History Father Heart disease Myocardial infarction Hypertension Brother Hypertension Sister Heart disease Myocardial infarction Surgical History History of hip replacement (~02/2024) History of cardiac catheterization History of esophagogastroduodenoscopy (EGD) Hx of surgical procedure History of aortic valve replacement (03/03/19) History of coronary artery stent placement (12/31/18) H/O coronary artery bypass surgery (09/18/02) History of tonsillectomy History of hernia repair Social History Smoking Status: Never smoker alcohol intake: never substance use type: does not use caffeine: No what type of physical activity do you participate in: walking frequency: daily ROS ROS Narrative As per HPI, otherwise noncontributory Physical Exam Narrative General: Alert and oriented x3, NAD. HEENT: Normocephalic, atraumatic. Mucous membrane moist without erythema. PERRLA, EOMI. Hearing is intact. Neck: Supple, no JVD. Trachea is midline. No thyromegaly or lymphadenopathy. Cardiovascular: Normal S1, S2. No rubs, murmurs, or gallops. Respiratory: Lungs are clear to auscultation bilaterally. No wheezing, rhonchi, or rales. Abdomen: Normal bowel sounds, soft, nontender, no guarding or rebound, no organomegaly. Extremities: No clubbing, cyanosis, or edema. Left upper extremity AV fistula has good thrill/bruit. Musculoskeletal: Full passive range of motion, no joint swelling. Psychiatric: Normal mood and affect. Skin: Warm and dry, no rash. Neurologic: Cranial nerve II to XII are grossly intact. No focal neurologic deficits. Lab / Micro Data 03/05/25 17:35 03/05/25 17:35 Labs: Laboratory Results - last 24 hr 03/05/25 17:35: WBC 9.5, RBC 3.84 L, Hgb 11.8 L, Hct 36.0 L, MCV 93.8, MCH 30.7, MCHC 32.8, RDW Std Deviation 46.2 H, RDW Coeff of Marcos 13.6, Plt Count 141 L, MPV 9.5, Immature Gran % (Auto) 0.500, Neut % (Auto) 88.4 H, Lymph % (Auto) 3.5 L, [place] % (Auto) 7.3, Eos % (Auto) 0.1, Baso % (Auto) 0.2, Absolute Neuts (auto) 8.4 H, Absolute Lymphs (auto) 0.33 L, Nucleated RBC % 0, PT 19.7 H, INR 1.6, A PTT 39.6 H, Sodium 135, Potassium 4.0, Chloride 94 L, Carbon Dioxide 29.4, Anion Gap 11, BUN 35 H, Creatinine 2.80 H, Estim Creat Clear Calc 23.09 L, Est GFR (MDRD) Non-Af 24 L, BUN/Creatinine Ratio 12.5, Glucose 125 H, Lactic Acid 1.3, Calcium 9.0, Total Creatine Kinase 26 Imaging Radiology Impression Abdomen/Pelvis CTA 03/05/25 18:12 IMPRESSION: Advanced peripheral atherosclerotic vascular disease as described. There is runoff to the left ankle/foot via the posterior tibial artery, but the anterior tibial and peroneal arteries are not definitively patent in the lower leg. Similar findings in the right leg. Conventional angiography could better evaluate. No acute or aggressive osseous abnormality appreciated. Multiple additional chronic/degenerative ancillary findings as noted above. Reading Location: [id number]
[2025-03-06] MEDS: Lidocaine 5% Patch 1 PATCH TOPICAL (11:47)
--- NOTE | 2025-03-06 12:40 | CASEMGMT ---
MICHELE HILLMAN Assessment: Face to Face with pt for initial transition planning/care coordination assessment. MICHELE HILLMAN introduced self and role at [facility], pt voices understanding and consents to assessment. Pt is A&O x4 and answers all questions appropriately at this time. Pt receiving dialysis and dialysis nurse present in room. Pt sitting up in bed in no distress. Care providers, pharmacy, and demographics verified/updated. Admitting Dx: L thigh muscle pain Strata Score: 3 PCP:Samantha Specialists:Ludin, cardio; Fouzia, pain mgmt; Zuleika, onc; Ismail, nephro Preferred Pharmacy: [facility] [place] Insurance: [facility], [facility] Prescription Benefit: yes LNOK: Kenisha Landa, ; Avani Diazh, dtr Living Arrangements: Pt lives with in a single story home with a ramp to enter. Pt reports his dtr and son in law's home is attached to his but they have their own living quarters. Pt reports up until this he was I in ADLs. Pt states his and dtr assist with IADLs. Pt denies concerns at home. Transportation: Pt drives self and denies concerns with transportation. Pt or dtr could transport pt if needed. DME:cane, w/c, rollator, built in shower seat, FWW, walk in shower HHC/SNF: Pt has had HHC in the past but is unsure name of the agency. Pt states he has been to [facility] in the past. Pt states no concerns with going home at time of dc. Pt is interested in HHC therapy for his thigh pain and weakness. Pt reports he has not been out of bed nor had therapy yet. 6 cl=14. Discussed home therapy pending [facility]. Pt states he feels he would be interested in this. Pt has dialysis T/Th/Sat at [facility]. Pt states no further concerns/needs. CM to follow. Advised pt to ask CM if any further questions/concerns/needs arise, voices understanding. Pt Goal: Home Plan: Home vs Home with HHC vs Home with OP therapy pending PT abe Berger RN, CM
[2025-03-06] MEDS: 0.9% Normal Saline 1,000 ML IV.SOLN. 1000 ML OPERA.SITE (13:49)
[2025-03-06] MEDS: PureFlow B 2K Dialysis Soln 1 BAG 6 BAG PF (13:49)
--- NOTE | 2025-03-06 16:06 | CASEMGMT ---
See previous RN CM note. MICHELE HILLMAN to the pt room at this time. Reviewed how the pt did with therapy. At this time, the pt denies the need for HH or OP therapy. Pt states that he feels safe returning home once medically ready and denies any further questions, concerns, or needs. MS3 MICHELE HILLMAN updated.
--- NOTE | 2025-03-06 16:41 | PCM.HOSP.N ---
Hospitalist Note Patient evaluated at bedside. Resting comfortably while sitting in chair. Reports the pain is specifically when he gets up and it is in his upper left thigh. Palpated upper left thigh and he has focal tenderness when palpating anterior thigh, feels to have a tense muscle, suspect that this is musculoskeletal in nature given patient specifically has muscular tenderness on palpation. Discussed supportive care and PT/OT eval and possibly home over the weekend once patient more comfortable and able to ambulate at home and he is agreeable. Medications adjusted. Patient for dialysis today.
[2025-03-07] VITALS (10 sets, daily range): BP systolic 96–119; BP diastolic 60–71; PULSE 71–82; RESP 13–16; TEMP 37.1–37.3; O2SAT 97–100; BMI 21.9; BMI 21.8
[2025-03-07 05:31] LABS: Hematocrit 29.9 % (40-54); Hemoglobin 9.9 g/dL (13.0-16.5); Mean Corp Hgb Conc 33.1 g/dL (32-36); Mean Corpuscular Volume 93.4 fL (80-94); Mean Platelet Vol. 10.0 fl (6.2-12.0); Platelet Count 147 K/mm3 (150-450); RBC Distribution Width CV 13.8 % (11.6-14.6); RBC Distribution Width SD 47.4 fl (35.1-43.9); Red Blood Count 3.20 M/mm3 (4.6-6.2); White Blood Count 8.9 K/mm3 (4.4-11.0)
[2025-03-07 05:57] LABS: Anion Gap 11 (5-15); BUN 38 mg/dL (4-19); BUN/Creat Ratio 15.4 RATIO (10-20); Calcium,Total 8.8 mg/dL (7.6-11.0); Carbon Dioxide 25.2 mmol/L (21.0-32.0); Chloride 99 mmol/L (98-108); Estimated Creatinine Clearance 25.99 ml/min (50-250); Glucose 99 mg/dL (70-99); Potassium 3.7 mmol/L (3.3-5.1)
[2025-03-07] MEDS: PureFlow B 3K Dialysis Soln 1 BAG 6 BAG PF (07:46)
[2025-03-07] MEDS: 0.9% Normal Saline 1,000 ML IV.SOLN. 1000 ML OPERA.SITE (07:46)
[2025-03-07] MEDS: Lidocaine 5% Patch 1 PATCH TOPICAL (11:14)
[2025-03-07] MEDS: Heparin Injection (Vial) 5,000 UNIT/ML VIAL 5000 UNIT SC (11:14)
--- NOTE | 2025-03-07 15:07 | DCINST_ITS ---
Discharge Instructions DC O2, CPAP, BIPAP needs Home O2 Discharge instructions: No Dressing / Incision Discharge Activity: - (Increase activity as tolerated) Follow Up Care Test Results: Test results from this visit will be discussed in further detail at your follow- up appointment, if applicable. Discharge Plan Admission Admit Date/Time: 03/06/25 14:57 Primary Reason for Your Visit: Left leg pain Attending Provider: Paloma Pryor Primary Care Provider: Yaw Singh Consulting Providers: Gagan Ervin; Gaudencio Greenberg Instructions Patient Instructions: ED Fall Prevention Discharge Orders/Prescriptions Prescriptions: New lidocaine 5 % Adhesive Patch,Medicated 1 patch topical DAILY Qty: 15 0RF Protocol: *Topical Application Instructions APPLICATION INSTRUCTIONS: left inner thigh over tender area Continued atorvastatin 80 mg tablet 80 mg PO QHS Qty: 90 3RF ezetimibe 10 mg tablet 10 mg PO DAILY Qty: 90 3RF ferrous sulfate 325 mg (65 mg iron) tablet 325 mg PO DAILY Qty: 90 3RF amoxicillin 500 mg tablet 2,000 mg PO ONCE Qty: 4 0RF Rx Instructions: Take one hour prior to dental cleanings/procedure metoprolol tartrate 25 mg Tablet 25 mg PO BID Qty: 0 0RF pantoprazole 40 mg Tablet,Delayed Release (Dr/Ec) 40 mg PO BID Qty: 0 0RF polyethylene glycol 3350 [Miralax] 17 gram/dose powder 17 g PO DAILY PRN (Reason: constipation) ondansetron 4 mg tablet,disintegrating 4 mg PO Q8H PRN PRN (Reason: nausea and vomiting) nitroglycerin 0.4 mg tablet, sublingual 0.4 mg sublingual PRN PRN (Reason: angina) aspirin 81 mg Tablet,Chewable 81 mg PO BID Qty: 0 0RF Rx Instructions: Take for 30 days postop and then okay to discontinue Changed acetaminophen 500 mg tablet 1,000 mg PO Q8 7 Days Qty: 42 0RF Rx Instructions: Take Tylenol this way for 5 to 7 days postoperatively and then okay to go back and use as needed Discontinued oxycodone 5 mg tablet 5 mg PO Q8H PRN (Reason: pain) 2 Days Qty: 6 0RF oxycodone-acetaminophen 5-325 mg tablet 1 tab PO Q6H PRN PRN (Reason: pain) 5 Days Qty: 20 0RF Referrals / Follow Up: Yaw Singh MD [Primary Care Provider, Family Practice] - Within 1 Week Disposition Disposition (needs filled in before D/C Order can be placed): Home, Self Care
--- NOTE | 2025-03-07 15:13 | PCM.DC.SUM ---
Providers Date of Admission: 03/06/25 Date of Discharge: 03/07/25 Primary Care Physician: Dr. Yaw Singh MD Consultations 03/06/25 07:07 Consult: Nephrology Routine Consulting Provider: Gaudencio Greenberg Reason for Consult: esrd need HD Sunday EMERGENT Consult: No MD Notified: Yes Date Notified: 03/06/25 Time Notified: 07:18 Method of Notification: Answering Service Reason For Visit: LEFT THIGH MUSCLE PAIN Diagnosis Discharge Diagnosis (1) End stage renal disease on dialysis: Status: Acute Code(s): N18.6 - End stage renal disease; Z99.2 - Dependence on renal dialysis (2) HTN (hypertension): Status: Chronic Code(s): I10 - Essential (primary) hypertension (3) Muscle strain of left thigh: Status: Acute Code(s): S76.912A - Strain of unspecified muscles, fascia and tendons at thigh level, left thigh, initial encounter Plan #Left thigh muscle strain #ESRD on HD // #TAVR #CAD w/ bypass and stenting Medications at Discharge Home Medications atorvastatin 80 mg tablet 80 mg PO QHS CHOLESTEROL #90 tabs 05/15/22 ezetimibe 10 mg tablet 10 mg PO DAILY CHOLESTEROL #90 tabs 05/15/22 metoprolol tartrate 25 mg tablet 25 mg PO BID #0 tabs 10/25/23 pantoprazole 40 mg tablet,delayed release 40 mg PO BID #0 tabs 10/25/23 ferrous sulfate 325 mg (65 mg iron) tablet 325 mg PO DAILY #90 tabs 11/20/23 polyethylene glycol 3350 17 gram/dose oral powder (Miralax) 17 g PO DAILY PRN constipation 12/04/23 ondansetron 4 mg disintegrating tablet 4 mg PO Q8H PRN PRN nausea and vomiting 12/25/23 nitroglycerin 0.4 mg sublingual tablet 0.4 mg sublingual PRN PRN angina 02/14/24 aspirin 81 mg chewable tablet 81 mg PO BID #0 tabs 02/17/24 amoxicillin 500 mg tablet 2,000 mg (4 x 500 mg) PO ONCE #4 tabs 04/29/24 acetaminophen 500 mg tablet 1,000 mg (2 x 500 mg) PO Q8 pain 7 days #42 tabs 03/07/25 lidocaine 5 % topical patch 1 patch topical DAILY #15 ea 03/07/25 Hospital Course Summary of Care Provided Minutes Spent on Discharge: 22 Hospital Course: 69-year-old male history of end-stage renal disease on hemodialysis, TAVR, coronary artery disease presented [facility] ED 03/05/2025 due to left thigh pain. He had CTA in the ED given history of vascular disease which showed advanced peripheral vascular disease, Dr. Jackson contacted by ED physician and on reviewing the case did not think that presenting complaints were acute vascular in nature and findings were likely chronic and not the source of thigh pain. They attempted to ambulate him in the ED but due to thigh pain he did not ambulate well so hospitalist contacted for admission. On evaluation patient had pain over palpation of anterior left thigh specifically over muscle group, improved with Tylenol and topical lidocaine patch. Patient was able to improve ambulation, work up otherwise negative. Did receive dialysis x 2 to get him back on schedule after the holidays. On day of discharge sought a little bit of discomfort but was able to get up and ambulate felt comfortable going home for recovering the rest of the way. No new acute complaints. Physical Exam Narrative General: Alert, oriented, no apparent distress HEENT: Atraumatic, normocephalic Eyes: Anicteric, normal conjunctiva, extraocular movements grossly intact Neck: Supple Respiratory: Clear to auscultation bilaterally, normal respiratory effort Cardiovascular: Regular rate and rhythm GI: Soft, nontender, nondistended Extremities: No edema Musculoskeletal: Moving all extremities, some pain on the inner anterior portion of left thigh Neuro: No overt focal neurological deficits Skin: No rashes appreciated Psych: Cooperative Weight / BMI Weight Weight: 66.8 kg Body Mass Index (BMI) 21.8 ABG / Lab / Microbiology Data 03/07/25 04:56 03/07/25 04:56 Laboratory: Laboratory Results - last 24 hr 03/07/25 04:56: WBC 8.9, RBC 3.20 L, Hgb 9.9 L, Hct 29.9 L, MCV 93.4, MCH 30.9, MCHC 33.1, RDW Std Deviation 47.4 H, RDW Coeff of Marcos 13.8, Plt Count 147 L, MPV 10.0, Sodium 136, Potassium 3.7, Chloride 99, Carbon Dioxide 25.2, Anion Gap 11, BUN 38 H, Creatinine 2.48 H, Estim Creat Clear Calc 25.99 L, Est GFR (MDRD) Non-Af 27 L, BUN/Creatinine Ratio 15.4, Glucose 99, Calcium 8.8 D/C Instructions DC O2, CPAP, BIPAP Needs Home O2 Discharge instructions: No Meaningful Use Info Meaningful Use Meaningful Use Diagnoses (Choose all that apply): None applicable Discharge Plan Admission Admit Date/Time: 03/06/25 14:57 Primary Reason for Your Visit: Left leg pain Attending Provider: Paloma Pyror Primary Care Provider: Yaw Singh Consulting Providers: Gagan Ervin; Gaudencio Greenberg Instructions Patient Instructions: ED Fall Prevention Discharge Orders/Prescriptions Prescriptions: New lidocaine 5 % Adhesive Patch,Medicated 1 patch topical DAILY Qty: 15 0RF Protocol: *Topical Application Instructions APPLICATION INSTRUCTIONS: left inner thigh over tender area Continued atorvastatin 80 mg tablet 80 mg PO QHS Qty: 90 3RF ezetimibe 10 mg tablet 10 mg PO DAILY Qty: 90 3RF ferrous sulfate 325 mg (65 mg iron) tablet 325 mg PO DAILY Qty: 90 3RF amoxicillin 500 mg tablet 2,000 mg PO ONCE Qty: 4 0RF Rx Instructions: Take one hour prior to dental cleanings/procedure metoprolol tartrate 25 mg Tablet 25 mg PO BID Qty: 0 0RF pantoprazole 40 mg Tablet,Delayed Release (Dr/Ec) 40 mg PO BID Qty: 0 0RF polyethylene glycol 3350 [Miralax] 17 gram/dose powder 17 g PO DAILY PRN (Reason: constipation) ondansetron 4 mg tablet,disintegrating 4 mg PO Q8H PRN PRN (Reason: nausea and vomiting) nitroglycerin 0.4 mg tablet, sublingual 0.4 mg sublingual PRN PRN (Reason: angina) aspirin 81 mg Tablet,Chewable 81 mg PO BID Qty: 0 0RF Rx Instructions: Take for 30 days postop and then okay to discontinue Changed acetaminophen 500 mg tablet 1,000 mg PO Q8 7 Days Qty: 42 0RF Rx Instructions: Take Tylenol this way for 5 to 7 days postoperatively and then okay to go back and use as needed Discontinued oxycodone 5 mg tablet 5 mg PO Q8H PRN (Reason: pain) 2 Days Qty: 6 0RF oxycodone-acetaminophen 5-325 mg tablet 1 tab PO Q6H PRN PRN (Reason: pain) 5 Days Qty: 20 0RF Referrals / Follow Up: Yaw Singh MD [Primary Care Provider, Family Practice] - Within 1 Week Disposition Disposition (needs filled in before D/C Order can be placed): Home, Self Care Charges/Coding Visit Charges Inpatient E&M: 99492 Disch Hosp
== END 2025-03-07 16:49 | disposition home or self-care (01) | DRG 537 ==
LOC: ED 03-06 00:49 → MS3 03-06 01:36
PROVIDERS: Admitting Provider Internal Medicine; Emergency Provider Surgery; PCP Family Medicine; Visit Provider Internal Medicine
DX: S76.812A Strain of other specified muscles, fascia and tendons at thigh level, left thigh, initial encounter (principal); I50.33 Acute on chronic diastolic (congestive) heart failure; N18.6 End stage renal disease; I13.2 Hypertensive heart and chronic kidney disease with heart failure and with stage 5 chronic kidney disease, or end stage renal disease; T82.858A Stenosis of other vascular prosthetic devices, implants and grafts, initial encounter; I73.9 Peripheral vascular disease, unspecified; Z95.2 Presence of prosthetic heart valve; Z99.2 Dependence on renal dialysis; E78.5 Hyperlipidemia, unspecified; I25.10 Atherosclerotic heart disease of native coronary artery without angina pectoris; R26.2 Difficulty in walking, not elsewhere classified; X58.XXXA Exposure to other specified factors, initial encounter; Z95.5 Presence of coronary angioplasty implant and graft; Z96.642 Presence of left artificial hip joint; Z79.82 Long term (current) use of aspirin; Z79.899 Other long term (current) drug therapy
CPT/HCPCS: 36415; 36901; 36907; 37252; 37253; 75635; 76937; 80048; 82550; 83605; 85025; 85027; 85610; 85730; 90937; 97162; 97802; 99152; 99153; 99285; C1753; C1894; C2623; Q9967; A4216; C1725; G0257; J2405

== ENCOUNTER 2025-03-19 07:43 | Inpatient (IN) | payer MEDICARE, OTHER, SELFPAY ==
[2025-03-19] VITALS (8 sets, daily range): BP systolic 105–134; BP diastolic 66–83; PULSE 84–103; RESP 16–33; TEMP 36.7–37.1; O2SAT 94–100; BMI 22.8; BMI 22.3
--- NOTE | 2025-03-19 08:12 | EDS_ITS ---
HPI History of Present Illness Chief Complaint: General Illness Informant: patient and family Narrative Narrative: Patient is a 69-year-old male with a history of CKD on dialysis, presenting with worsening arm swelling and hip pain. Patient was sent from dialysis due to elevated WBC count and concerns about his arm and complexion. - Dialysis staff noted elevated WBC count at 0600 this morning and advised hospital evaluation. - Reports worsening swelling in the arm, which has been present for 8 months but is significantly larger today. Follows w/ Vascular Dr. Jackson. - Arm pain rated at 5/10, from AC fossa down forearm to wrist, described as intermittent but more severe today; denies pain with gentle pressure around the fistula. - Underwent a procedure on 03/04, involving the placement of 3 stents in the left arm (in actuality, had proximal venous angioplasty, no stents deployed); swelling and mild redness have been present since then. Redness has not worsened and is not painful. - Hip pain began on 03/04 after the arm procedure; patient has difficulty walking ever since and requires a walker; worsening. - Denies previous issues with the hip, which had a partial replacement about a year ago. - Reports nausea with dry heaves this morning, but denies emesis and no abd pain. - Denies fevers, chest pain, abdominal pain, or new numbness. Just feels weak all over and malaised today. - Last dialysis session was 2d ago; has not missed any sessions. Follows with Nephrology Dr. Evita Broderick. - Denies current use of Eliquis (was on list from dialysis), stating he hasn't taken it in over a year; denies history of AFib or known blood clots in legs or lungs. 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 Knee pain Hx of sinus tachycardia Hematuria Pleural effusion Thrombocytopenia Wears glasses Cancer Cancer Pressure ulcer History of renal dialysis History of renal disease Injury of back History of GI bleed Gastric reflux History of stress test History of echocardiogram Cardiology follow-up encounter ESRD (end stage renal disease) on dialysis Acute exacerbation of chronic heart failure Adenocarcinoma of esophagus Non-smoker Esophageal carcinoma Atherosclerosis of coronary artery of [place] heart without angina 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 Essential (primary) hypertension Non-rheumatic aortic stenosis Hyperlipidemia Atherosclerotic heart disease of [place] coronary artery with other forms of angina pectoris Encounter for long-term current use of high risk medication abnormal stress test Exertional chest pain Home Medications ?Medication ?Instructions ?Recorded ?Last Taken ?Type atorvastatin 80 mg tablet 80 mg PO QHS CHOLESTEROL #90 tabs 05/15/22 12/24/23 Rx metoprolol tartrate 25 mg tablet 25 mg PO BID #0 tabs 10/25/23 06/30/24 05:30 Rx pantoprazole 40 mg tablet,delayed 40 mg PO BID #0 tabs 10/25/23 06/30/24 05:30 Rx release ferrous sulfate 325 mg (65 mg 325 mg PO DAILY #90 tabs 11/20/23 06/29/24 Rx iron) tablet polyethylene glycol 3350 17 17 g PO DAILY PRN constipa tion 12/04/23 Unknown History gram/dose oral powder (Miralax) ondansetron 4 mg disintegrating 4 mg PO Q8H PRN PRN na usea and 12/25/23 12/25/23 08:00 History tablet vomiting nitroglycerin 0.4 mg sublingual 0.4 mg sublingual PRN PRN angina 02/14/24 Unknown History tablet aspirin 81 mg chewable tablet 81 mg PO BID #0 tabs 01/3003/03/25 Rx acetaminophen 500 mg tablet 1,000 mg (2 x 500 mg) PO Q 8 pain 7 03/07/25 Unknown Rx days #42 tabs Allergy/AdvReac Type Severity Reaction Status Date / Time No Known Allergies Allergy Verified 03/19/25 07:46 Family History Father Heart disease Myocardial infarction Hypertension Brother Hypertension Sister Heart disease Myocardial infarction Surgical History History of hip replacement (~02/2024) History of cardiac catheterization History of esophagogastroduodenoscopy (EGD) Hx of surgical procedure History of aortic valve replacement (03/03/19) History of coronary artery stent placement (12/31/18) H/O coronary artery bypass surgery (09/18/02) History of tonsillectomy History of hernia repair Social History Smoking Status: Never smoker alcohol intake: never substance use type: does not use caffeine: No what type of physical activity do you participate in: walking frequency: daily ROS ROS ED Constitutional Constitutional ED: Reports malaise; Denies chills or fever(s) Eyes Eyes: Denies change in vision or diplopia ENT ENT ED: Denies rhinorrhea or sore throat Cardiovascular Cardiovascular: Denies chest pain or palpitations Respiratory/Chest Respiratory/Chest: Denies cough or dyspnea Gastrointestinal Gastrointestinal: Reports nausea and vomiting; Denies abdominal pain or diarrhea Genitourinary Genitourinary ED: Denies dysuria or hematuria Musculoskeletal Musculoskeletal: Reports as per HPI, extremity pain and other Details: LUE edema ; Denies back pain or neck pain Integumentary Denies abscess or rash Neurologic Neurologic: Denies headache(s), paresthesias or weakness Psychiatric Psychiatric: Denies suicidal thoughts EXAM Physical Exam Const Vital Signs: 03/19/25 07:44 03/19/25 07:46 03/19/25 08:38 Temperature 98.2 F 98.2 F Temperature Source Oral Oral Pulse Rate 90 90 Respiratory Rate 16 16 Respiratory Effort Normal Respiratory Pattern Tachypnea Blood Pressure 122/75 H 122/75 H Blood Pressure Mean 90 90 Pulse Ox 98 98 Oxygen Delivery Method Room Air Room Air 03/19/25 10:35 03/19/25 12:00 Temperature Temperature Source Pulse Rate 85 85 Respiratory Rate 30 H Respiratory Effort Respiratory Pattern Blood Pressure 134/83 H 131/69 H Blood Pressure Mean 100 89 Pulse Ox 99 97 Oxygen Delivery Method Room Air Room Air Positive well nourished and well developed General Appearance ED: well developed and NAD HEENT Reports moist mucous membranes normocephalic and atraumatic Eyes PERRL and EOMs intact bilaterally Neck full ROM and supple Resp normal respiratory effort and clear to auscultation bilaterally Cardio regular rate, regular rhythm and no murmurs GI non-tender and non-distended Auscultation: normoactive bowel sounds Palpation: soft Back/Spine no CVA tenderness General Back: other FROM Extremity Extremity Narrative: Left hip-painful movement but able, and does better with assistance ranging the hip. Inspection is normal patient states this is swollen compared to normal. There is no signs of cellulitis/erythema no subcutaneous emphysema here. With regards to the left upper extremity, there is asymmetric edema that does not exist on the right, it is pitting from the elbow down to the hand, there is a good thrill in the fistula there is a good pulse distally, there is a very slight amount of nontender nonindurated erythema near the antecubital fossa that appears to be almost inflammatory like eczema would look like, and a couple of healing suture sites/incisions, none of which are tender. No subcutaneous emphysema anywhere in the left upper extremity and it is otherwise normal- appearing. All the compartments are soft and nondistended/not tight, and there is no pain with palpation throughout, including in the forearm and the locations where patient states he is having soreness and 5/10 pain. Full range of motion. General Extremety ED: Yes edema; Negative for pulses abnormal or tenderness General Extremity: edema left upper extremity moderate (pitting from elbow to hand; radial pulse intact, CR brisk); Negative for pulses abnormal Neuro oriented x3, CN's II-XII intact bilaterally and no sensory deficits noted Sensorium / Orientation: awake and alert Motor Exam: strength 5/5 throughout Psych mental status grossly normal Skin no rashes or lesions noted and no wounds MDM MDM MDM Narrative Medical decision making narrative: Assessment: The patient is a 69-year-old male with PMH of end stage renal disease on hemodialysis and prior left total hip arthroplasty presenting for progressive left upper extremity swelling at his brachiocephalic AV fistula and worsening left hip pain with inability to ambulate. Duplex fistulogram shows good flow through the fistula, arguing against vascular thrombosis. Hip radiographs are unremarkable. Lab work reveals mild leukocytosis at 11.6, stable anemia at 10.4, and baseline renal dysfunction (BUN 47, creatinine 2.63). Urinalysis shows blood and protein without infectious features. Differential for hip pain includes synovitis, septic bursitis, or septic arthritis; infection of the fistula appears less likely given normal flow and limited erythema. Plan: - Administered analgesia for left hip and arm pain. - Admitting to hospitalist service for further work-up of debilitating left hip pain and mobility loss. - Orthopedics and vascular surgery to evaluate inpatient per discussions. - Discussed condition, uncertainties, and need for hospitalization with patient; he agrees with plan. Diagnostics: - Duplex ultrasound fistulogram, left upper extremity: good flow through brachiocephalic AV fistula. - X-ray left hip arthroplasty: unremarkable. - CXR 2v bilateral small effusions on my interpretation - Labs: WBC 11.6 (mild leukocytosis); Hgb 10.4 (stable anemia); BUN 47, creatinine 2.63 (baseline); urinalysis positive for blood and protein, otherwise unremarkable. - ESR and CRP elevated. Consultations: - Vascular surgery (Dr. Jackson) ? agrees duplex ultrasound appropriate; will monitor inpatient. - Orthopedics (Dr. Marc) ? discussed case; ESR and CRP elevated, mild leukocytosis, dedicated CT of the left hip obtained and shows no significant fluid collections; will assess hip pain inpatient and requesting MRI be done which was communicated with hospitalist. - Hospitalist ? accepts admission for further evaluation and management. Portions of this note were generated using voice recognition software ([employer]). I have reviewed the contents and every effort has been made to ensure accuracy; however, inadvertent errors in grammar, spelling, punctuation, or word choice may occur, that were not noted before signing the document and should not alter the intended clinical meaning. Lab Data Attestation: I reviewed the patient's lab results. Labs: Laboratory Results - last 24 hr 03/19/25 03/19/25 08:24 11:50 WBC 11.6 H RBC 3.44 L Hgb 10.4 L Hct 32.7 L MCV 95.1 H MCH 30.2 MCHC 31.8 L RDW Std Deviation 47.4 H RDW Coeff of [place] 13.6 Plt Count 293 MPV 9.4 Immature Gran % (Auto) 0.600 Neut % (Auto) 91.0 H Lymph % (Auto) 3.6 L [place] % (Auto) 3.9 Eos % (Auto) 0.6 Baso % (Auto) 0.3 Absolute Neuts (auto) 10.5 H Absolute Lymphs (auto) 0.42 L Nucleated RBC % 0 ESR 54 H PT 16.8 H INR 1.3 APTT 37.2 H Sodium 138 Potassium 3.6 Chloride 97 L Carbon Dioxide 30.8 Anion Gap 11 BUN 47 H Creatinine 2.63 H Est GFR (MDRD) Non-Af 25 L BUN/Creatinine Ratio 18.0 Glucose 101 H Lactic Acid 1.4 Calcium 8.5 C-React Prot Ext Range 210.00 H Urine Color Yellow Urine Clarity Clear Urine pH 7.0 Ur Specific [place] 1.005 Urine Protein 30 H Urine Glucose (UA) Normal Urine Ketones Negative Urine Occult Blood 50 H Urine Nitrite Negative Urine Bilirubin 1 H Urine Urobilinogen Normal Ur Leukocyte Esterase Negative Urine RBC 0 SEEN Urine WBC 0 SEEN Ur Squamous Epith Cells 0 SEEN Urine Bacteria 0 SEEN Urine Mucus 0 SEEN Radiography Diagnostic Testing: Clinical Impression(s) from Imaging Studies A/V Fistula Ultrasound 03/19/25 08:37 Interpretation Summary Patent left upper arm fistula with normal velocities and no stenosis, adequate flow volume and diameter. Ordering Physician: Karthik Ko Referring Physician: Yaw Singh Performed By: Di Appiah RVT Chest X-Ray 03/19/25 08:50 IMPRESSION: 1. Gastric pull-through. 2. Cardiac enlargement. Median sternotomy and TAVR. Aortic atherosclerosis. 3. Moderate left pleural effusion and small right pleural effusion. Compressive atelectasis of the lung bases and inferior lingula. Similar to prior. Reading Location: [facility] Forearm X-Ray 03/19/25 08:50 IMPRESSION: Soft tissue swelling. Reading Location: [id number] Hip/Pelvis X-Ray 03/19/25 08:50 IMPRESSION: Normal-appearing left total hip arthroplasty. Other findings as noted. Reading Location: [place] [id number] Management Discussion w/another healthcare provider: Creative Technologist (vascular surgery - aware of pt, recommends duplex u/s fistulagram; ortho krystal) Discharge Plan Dx/Rx/DC Orders Clinical Impression: Inability to ambulate due to left hip, Acute pain of left hip, Edema of left upper extremity, Arteriovenous fistula of left upper extremity, ESRD on dialysis, Presence of left artificial hip joint, Pleural effusion, bilateral Disposition Disposition: Acute Care Hospital [facility] Discharge Date/Time: 03/19/25 13:39
--- NOTE | 2025-03-19 08:37 | AVDS_ITS ---
Reason For Study Reason For Study: Left arm swelling LEFT Brachiocephalic AVF Inflow, 276/133.5 cm/sec. Inflow, 2668 ml/min. Anastomosis, 312.4/184.2 cm/sec. Anastomosis, 1713 ml/min. Prox Graft, 515.9/272.1 cm/sec. Prox Graft, 8648 ml/min. Prox Graft, 279.9/136.4 cm/sec. Prox Graft, 6473 ml/min. Mid Graft, 128.7/58.7 cm/sec. Mid Graft, 2127 ml/min. Dist Graft, 62.2/34 cm/sec. Dist Graft, 2066 ml/min. Outflow, 215.3/111.9 cm/sec. Outflow, 2232 ml/min Radial artery distal, 29.2 cm/sec. Ulnar artery distal, 24.5 cm/sec. VL/AV Fistula/Dialysis Graft Scan Interpretation Summary Patent left upper arm fistula with normal velocities and no stenosis, adequate flow volume and diameter. Ordering Physician: Karthik Ko Referring Physician: Yaw Singh Performed By: Di Appiah RVT
[2025-03-19 08:42] LABS: Hematocrit 32.7 % (40-54); Hemoglobin 10.4 g/dL (13.0-16.5); Immature Granulocytes Count 0.070 X10^3/uL (0.0-0.0); Mean Corp Hgb Conc 31.8 g/dL (32-36); Mean Corpuscular Volume 95.1 fL (80-94); Mean Platelet Vol. 9.4 fl (6.2-12.0); NRBC Flagged by Analyzer 0 % (0-5); POSITIVE DIFFERENTIAL YES; Platelet Count 293 K/mm3 (150-450); RBC Distribution Width CV 13.6 % (11.6-14.6); RBC Distribution Width SD 47.4 fl (35.1-43.9); Red Blood Count 3.44 M/mm3 (4.6-6.2); White Blood Count 11.6 K/mm3 (4.4-11.0)
--- NOTE | 2025-03-19 08:50 | RAD_ITS ---
PROCEDURE: FOREARM 2 VIEWS 03/19/2025 REASON FOR EXAM: PAIN, SWELLING TECHNIQUE: Procedure Code: RADFA Modality: DX Procedure: FOREARM 2 VIEWS Laterality: Left forearm COMPARISON: None FINDINGS: Bones: No fracture seen. Joints: Normal alignment at the wrist and elbow. Soft tissues: Soft tissue swelling. Other: RAD/Forearm 2 Views IMPRESSION: Soft tissue swelling. Reading Location: [place] [id number]
--- NOTE | 2025-03-19 08:50 | RAD_ITS ---
PROCEDURE: HIP, UNI W/ PELVIS 2-3 VIEWS 03/19/2025 REASON FOR EXAM: PAIN TECHNIQUE: Procedure Code: [facility] Modality: DX Procedure: HIP, UNI W/ PELVIS 2-3 VIEWS Laterality: Left COMPARISON: Left hip 02/15/2024. FINDINGS: The bony pelvis is intact. The SI joints demonstrate mild degenerative spurring. There is mild degenerative disc disease, L3-4 through L5-S1. Status post right inguinal hernia repair. There are vascular calcifications in the pelvis and both thighs. AP view of the right hip demonstrate no evidence of fracture or dislocation. There is no significant joint space abnormality. AP and lateral views of the left hip demonstrate a total hip arthroplasty. The prosthetic femoral head is located in the prosthetic acetabulum. The distal end of the femoral component is well demonstrated. There are no complications evident. RAD/HIP, UNI W/ Pelvis 2-3 Views IMPRESSION: Normal-appearing left total hip arthroplasty. Other findings as noted. Reading Location: [place] [id number]
--- NOTE | 2025-03-19 08:50 | RAD_ITS ---
PROCEDURE: CHEST PA AND LATERAL 03/19/2025 REASON FOR EXAM: WEAKNESS, N/V TECHNIQUE: Procedure Code: RADCXR Modality: DX Procedure: CHEST PA AND LATERAL COMPARISON: February 15, 2024 FINDINGS: Hardware: EKG leads Heart: The heart is enlarged status post median sternotomy. TAVR has been performed. Mediastinum: There are atherosclerotic calcifications of the thoracic aorta. Gastric pull-through. Lungs: Atelectasis or airspace disease is seen at the lung bases and in the lingula related to pleural effusions, [id number]. This is similar to CT of February 15, 2024 Bones: Degenerative changes are identified within the thoracic spine. RAD/Chest PA and Lateral IMPRESSION: 1. Gastric pull-through. 2. Cardiac enlargement. Median sternotomy and TAVR. Aortic atherosclerosis. 3. Moderate left pleural effusion and small right pleural effusion. Compressi ve atelectasis of the lung bases and inferior lingula. Similar to prior. Reading Location: [id number]
[2025-03-19 08:52] LABS: Prothrombin Time (Protime)PT. 16.8 SECONDS (11.7-14.9)
[2025-03-19 08:53] LABS: Partial Thromboplast Time 37.2 Seconds (24.1-36.2)
[2025-03-19 09:05] LABS: Anion Gap 11 (5-15); BUN 47 mg/dL (4-19); BUN/Creat Ratio 18.0 RATIO (10-20); Calcium,Total 8.5 mg/dL (7.6-11.0); Carbon Dioxide 30.8 mmol/L (21.0-32.0); Chloride 97 mmol/L (98-108); Glucose 101 mg/dL (70-99); Potassium 3.6 mmol/L (3.3-5.1)
[2025-03-19 11:54] LABS: Mucous, Urine 0 SEEN /hpf (<or=2+); Red Blood Cells-Urine 0 SEEN /hpf (0-5); Squamous Epithelial Cells - UA 0 SEEN /hpf (0-5)
[2025-03-19 11:58] LABS: Color, Urine Yellow (Yellow); Glucose, Dipstick Normal (Normal); Ketone-Dipstick Negative (Negative); Leukocyte Esterase-Dipstick Negative /ul (Negative); Nitrite-Dipstick Negative (Negative); Occult Blood-Urine 50 /ul (Negative); Protein-Dipstick 30 mg/dl (Negative); Specific Gravity, Urine 1.005 (1.002-1.030); Urine Bilirubin Dipstick 1 mg/dL (Negative)
--- NOTE | 2025-03-19 13:12 | HP.PCM.HOS_ITS ---
[facility] - General General Date of Service: 03/19/25 Chief Complaint: left hip pain. HPI Narrative NICKO ROSALES, is a 69 M who presents left hip pain. This is a 69-year-old male dialysis who was admitted recently from the [facility] hospital from February 26 to with left anterior thigh pain and limited mobility. On the , patient underwent a fistulogram of the left upper extremity for his fistula. He stated that afterwards he started having that pain in his hip at that time. Patient unable to bend his leg on his own due to pain. He denies any falls. So he presented to the emergency room and underwent hip and forearm x-ray because he is also having increased edema of his left upper extremity since that fistulogram. [ ] [facility] Medical History Compression fracture of L5 vertebra Compression fracture of L4 vertebra Compression fracture of L3 vertebra Compression fracture of L2 Compression fracture of L1 lumbar vertebra Acute on chronic anemia Current use of skilled nursing anticoagulation Knee pain Hx of sinus tachycardia Hematuria Pleural effusion Thrombocytopenia Wears glasses Cancer Cancer Pressure ulcer History of renal dialysis History of renal disease Injury of back History of GI bleed Gastric reflux History of stress test History of echocardiogram Cardiology follow-up encounter ESRD (end stage renal disease) on dialysis Acute exacerbation of chronic heart failure Adenocarcinoma of esophagus Non-smoker Esophageal carcinoma Atherosclerosis of coronary artery of [place] heart without angina 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 Essential (primary) hypertension Non-rheumatic aortic stenosis Hyperlipidemia Atherosclerotic heart disease of [place] coronary artery with other forms of angina pectoris Encounter for long-term current use of high risk medication abnormal stress test Exertional chest pain Home Medications ?Medication ?Instructions ?Recorded ?Last Taken ?Type atorvastatin 80 mg tablet 80 mg PO QHS CHOLESTEROL #90 tabs 05/15/22 12/24/23 Rx metoprolol tartrate 25 mg tablet 25 mg PO BID #0 tabs 10/25/23 06/30/24 05:30 Rx pantoprazole 40 mg tablet,delayed 40 mg PO BID #0 tabs 10/25/23 06/30/24 05:30 Rx release ferrous sulfate 325 mg (65 mg 325 mg PO DAILY #90 tabs 11/20/23 06/29/24 Rx iron) tablet polyethylene glycol 3350 17 17 g PO DAILY PRN constipa tion 12/04/23 Unknown History gram/dose oral powder (Miralax) ondansetron 4 mg disintegrating 4 mg PO Q8H PRN PRN na usea and 12/25/23 12/25/23 08:00 History tablet vomiting nitroglycerin 0.4 mg sublingual 0.4 mg sublingual PRN PRN angina 02/14/24 Unknown History tablet aspirin 81 mg chewable tablet 81 mg PO BID #0 tabs 01/3003/03/25 Rx acetaminophen 500 mg tablet 1,000 mg (2 x 500 mg) PO Q 8 pain 7 03/07/25 Unknown Rx days #42 tabs Allergy/AdvReac Type Severity Reaction Status Date / Time No Known Allergies Allergy Verified 03/19/25 07:46 Family History Father Heart disease Myocardial infarction Hypertension Brother Hypertension Sister Heart disease Myocardial infarction Surgical History History of hip replacement (~02/2024) History of cardiac catheterization History of esophagogastroduodenoscopy (EGD) Hx of surgical procedure History of aortic valve replacement (03/03/19) History of coronary artery stent placement (12/31/18) H/O coronary artery bypass surgery (09/18/02) History of tonsillectomy History of hernia repair Social History Smoking Status: Never smoker alcohol intake: never substance use type: does not use caffeine: No what type of physical activity do you participate in: walking frequency: daily ROS ROS Narrative All review of systems were negative except as mentioned above in the history of present illness and the other review of systems. Vital Signs Vital Signs Vital Signs: 03/19/25 07:44 03/19/25 07:46 03/19/25 08:38 Temperature 36.8 C 36.8 C Temperature Source Oral Oral Pulse Rate 90 90 Respiratory Rate 16 16 Respiratory Effort Normal Respiratory Pattern Tachypnea Blood Pressure 122/75 H 122/75 H Blood Pressure Mean 90 90 Pulse Ox 98 98 Oxygen Delivery Method Room Air Room Air 03/19/25 10:35 03/19/25 12:00 Temperature Temperature Source Pulse Rate 85 85 Respiratory Rate 30 H Respiratory Effort Respiratory Pattern Blood Pressure 134/83 H 131/69 H Blood Pressure Mean 100 89 Pulse Ox 99 97 Oxygen Delivery Method Room Air Room Air Physical Exam Const alert and no apparent distress Constitutional Narrative: Nontoxic. Afebrile. HEENT normocephalic and head/scalp atraumatic Resp normal respiratory effort, no retractions, no use of accessory muscles and clear to auscultation bilaterally Cardio regular rate, regular rhythm, S1 normal heart sound and S2 normal heart sound GI normal to inspection, nondistended, normoactive bowel sounds, soft to palpation, non-tender and non-distended Extremity Extremity Narrative: Marked 3+ pitting edema of left upper extremity. Palpable thrill in fistula left upper extremity. No erythema to chest cellulitis. Left anterior hip is tender to palpation along his previous surgical incision which is well- approximated and well-healed. No surrounding erythema but it is definitively tender to palpation. Palpation around the rest of his hip area laterally and posteriorly exhibited no reproducible pain. Patient has good passive range of motion with flexion but cannot do external rotation due to pain passively. Neuro Sensorium / Orientation: awake and alert Results Lab / Micro Data 03/19/25 08:24 03/19/25 08:24 Labs: Laboratory Results - last 24 hr 03/19/25 08:24: WBC 11.6 H, RBC 3.44 L, Hgb 10.4 L, Hct 32.7 L, MCV 95.1 H, MCH 30.2, MCHC 31.8 L, RDW Std Deviation 47.4 H, RDW Coeff of Marcos 13.6, Plt Count 293, MPV 9.4, Immature Gran % (Auto) 0.600, Neut % (Auto) 91.0 H, Lymph % (Auto) 3.6 L, [place] % (Auto) 3.9, Eos % (Auto) 0.6, Baso % (Auto) 0.3, Absolute Neuts (auto) 10.5 H, Absolute Lymphs (auto) 0.42 L, Nucleated RBC % 0, ESR 54 H, PT 16.8 H, INR 1.3, APTT 37.2 H, Sodium 138, Potassium 3.6, Chloride 97 L, Carbon Dioxide 30.8, Anion Gap 11, BUN 47 H, Creatinine 2.63 H, Est GFR (MDRD) Non-Af 25 L, BUN/Creatinine Ratio 18.0, Glucose 101 H, Lactic Acid 1.4, Calcium 8.5 03/19/25 11:50: Urine Color Yellow, Urine Clarity Clear, Urine pH 7.0, Ur Specific [place] 1.005, Urine Protein 30 H, Urine Glucose (UA) Normal, Urine Ketones Negative, Urine Occult Blood 50 H, Urine Nitrite Negative, Urine Bilirubin 1 H, Urine Urobilinogen Normal, Ur Leukocyte Esterase Negative, Urine RBC 0 SEEN, Urine WBC 0 SEEN, Ur Squamous Epith Cells 0 SEEN, Urine Bacteria 0 SEEN, Urine Mucus 0 SEEN Imaging Radiology Impression Chest X-Ray 03/19/25 08:50 IMPRESSION: 1. Gastric pull-through. 2. Cardiac enlargement. Median sternotomy and TAVR. Aortic atherosclerosis. 3. Moderate left pleural effusion and small right pleural effusion. Compressive atelectasis of the lung bases and inferior lingula. Similar to prior. Reading Location: [facility] Forearm X-Ray 03/19/25 08:50 IMPRESSION: Soft tissue swelling. Reading [facility]Pelvis [facility] 03/19/25 08:50 IMPRESSION: Normal-appearing left total hip arthroplasty. Other findings as noted. Reading Location: [place] [id number] Assessment & Plan Assessment/Plan (1) Edema of left upper extremity: PLAN: Patient with fistulas left upper extremity. Underwent a recent fistulogram. Will do a duplex to see if there is any kind of DVT that may be contributing to this. Will consult vascular surgery for further recommendations. Keep left upper extremity elevated. (2) Left hip pain: PLAN: Unclear etiology. Etiologies could be muscle strain/spasm/tear versus infection. Patient did have a hip replacement about a year ago but has been doing well up until this recent intervention. Patient did have an elevated ESR. CRP is currently pending. Unclear if this is infected but will check a CT and if that is unremarkable then may need to check an MRI. Patient's family member at bedside stated that it was red at 1 point but currently it is not red but just very tender. Pain control (3) ESRD on dialysis: PLAN: Consult nephrology to continue with dialysis. Patient's normal dialysis day is today. Will consult nephrology but no urgent need for dialysis this time this can wait till tomorrow. PLAN: Plan PAD: Continue with aspirin and atorvastatin. GERD: Continue with PPI VTE prophylaxis with heparin CODE STATUS: Addressed with patient. Patient wishes to be full code Charges/Coding Visit Charges Inpatient E&M: 73523 Init Hosp L2
--- NOTE | 2025-03-19 13:18 | CT_ITS ---
PROCEDURE: EXTREMITY LOWER WITHOUT CONTRA 03/19/2025 REASON FOR EXAM: ANTERIOR LEFT HIP PAIN TECHNIQUE: Procedure Code: CTELWO Modality: CT Procedure: EXTREMITY LOWER WITHOUT CONTRA Coronal and Sagittal reconstruction series were provided. One or more dose reduction techniques were used (e.g., Automated exposure control, adjustment of the mA and/or kV according to patient size, use of iterative reconstruction technique). RADIATION DOSE SUMMARY: CTDlvol: 13.75 mGy DLP: 570.08 mGycm COMPARISON: None. FINDINGS: Bones: No acute bony abnormalities. Joints: Status post total left hip replacement. No acute periprosthetic fracture. No evidence of loosening. Soft Tissues: Unremarkable. Vascular atherosclerotic calcifications. CT/Extremity Lower without Contra IMPRESSION: No acute injury to the left hip. Reading Location: [facility]
[2025-03-19 13:29] LABS: CRP 210.00 mg/L (0.0-3.0)
--- NOTE | 2025-03-19 14:45 | PCM.CONS.R ---
Assessment & Plan Assessment/Plan (1) ESRD on dialysis: (2) Left hip pain: PLAN: Plan 69-year-old male with past medical history for ESRD on HD TTS, last dialyzed Sunday, admitted for evaluation of left hip pain. There is no acute indication for renal placement therapy today, volume status appears near euvolemic, lung sounds clear, on room air and K+ and bicarb are normal. We will evaluate for dialysis tomorrow. Patient has been seen by vascular for swelling to left arm, okay to cannulate AV fistula per vascular. Further orders forthcoming as hospitalization evolves, thank you for allowing us to participate in the care of Mr. Landa. Assessment and plan reviewed with Dr. Greenberg. HPI Consult Data Date of Consult: 03/19/25 HPI Narrative HPI Narrative: NICKO LANDA, is a 69 M who presented for evaluation of left hip pain. Admitted for further evaluation and treatment. Nephrology consulted as patient has history of ESRD, for dialysis management. Patient dialyzes in [place], last dialyzed March 17. Patient denies any recent fever or chills, N/V/ or diarrhea. Daughter at bedside. [facility] Medical History Compression fracture of L5 vertebra Compression fracture of L4 vertebra Compression fracture of L3 vertebra Compression fracture of L2 Compression fracture of L1 lumbar vertebra Acute on chronic anemia Current use of retirement anticoagulation Knee pain Hx of sinus tachycardia Hematuria Pleural effusion Thrombocytopenia Wears glasses Cancer Cancer Pressure ulcer History of renal dialysis History of renal disease Injury of back History of GI bleed Gastric reflux History of stress test History of echocardiogram Cardiology follow-up encounter ESRD (end stage renal disease) on dialysis Acute exacerbation of chronic heart failure Adenocarcinoma of esophagus Non-smoker Esophageal carcinoma Atherosclerosis of coronary artery of [place] heart without angina 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 Essential (primary) hypertension Non-rheumatic aortic stenosis Hyperlipidemia Atherosclerotic heart disease of [place] coronary artery with other forms of angina pectoris Encounter for long-term current use of high risk medication abnormal stress test Exertional chest pain Home Medications ?Medication ?Instructions ?Recorded ?Last Taken ?Type atorvastatin 80 mg tablet 80 mg PO QHS CHOLESTEROL #90 tabs 05/15/22 12/24/23 Rx metoprolol tartrate 25 mg tablet 25 mg PO BID #0 tabs 10/25/23 06/30/24 05:30 Rx pantoprazole 40 mg tablet,delayed 40 mg PO BID #0 tabs 10/25/23 06/30/24 05:30 Rx release ferrous sulfate 325 mg (65 mg 325 mg PO DAILY #90 tabs 11/20/23 06/29/24 Rx iron) tablet polyethylene glycol 3350 17 17 g PO DAILY PRN constipation 12/04/23 Unknown History gram/dose oral powder (Miralax) ondansetron 4 mg disintegrating 4 mg PO Q8H PRN PRN nausea and 12/25/23 12/25/23 08:00 History tablet vomiting nitroglycerin 0.4 mg sublingual 0.4 mg sublingual PRN PRN angina 02/14/24 Unknown History tablet aspirin 81 mg chewable tablet 81 mg PO BID #0 tabs 02/17/24 03/03/25 Rx acetaminophen 500 mg tablet 1,000 mg (2 x 500 mg) PO Q8 pain 7 03/07/25 Unknown Rx days #42 tabs Allergy/AdvReac Type Severity Reaction Status Date / Time No Known Allergies Allergy Verified 03/19/25 07:46 Family History Father Heart disease Myocardial infarction Hypertension Brother Hypertension Sister Heart disease Myocardial infarction Surgical History History of hip replacement (~02/2024) History of cardiac catheterization History of esophagogastroduodenoscopy (EGD) Hx of surgical procedure History of aortic valve replacement (03/03/19) History of coronary artery stent placement (12/31/18) H/O coronary artery bypass surgery (09/18/02) History of tonsillectomy History of hernia repair Social History Smoking Status: Never smoker alcohol intake: never substance use type: does not use caffeine: No what type of physical activity do you participate in: walking frequency: daily ROS ROS Narrative as in HPI Physical Exam Narrative Alert and oriented x 3, no apparent distress S1 S2, RRR Lung sounds clear Abdomen soft, nontender Left upper arm AV fistula positive for thrill and bruit. ++edema left arm/hand Lab / Micro Data 03/19/25 08:24 03/19/25 08:24 Labs: Laboratory Results - last 24 hr 03/19/25 08:24: WBC 11.6 H, RBC 3.44 L, Hgb 10.4 L, Hct 32.7 L, MCV 95.1 H, MCH 30.2, MCHC 31.8 L, RDW Std Deviation 47.4 H, RDW Coeff of [place]cos 13.6, Plt Count 293, MPV 9.4, Immature Gran % (Auto) 0.600, Neut % (Auto) 91.0 H, Lymph % (Auto) 3.6 L, [place] % (Auto) 3.9, Eos % (Auto) 0.6, Baso % (Auto) 0.3, Absolute Neuts (auto) 10.5 H, Absolute Lymphs (auto) 0.42 L, Nucleated RBC % 0, ESR 54 H, PT 16.8 H, INR 1.3, APTT 37.2 H, Sodium 138, Potassium 3.6, Chloride 97 L, Carbon Dioxide 30.8, Anion Gap 11, BUN 47 H, Creatinine 2.63 H, Est GFR (MDRD) Non-Af 25 L, BUN/Creatinine Ratio 18.0, Glucose 101 H, Lactic Acid 1.4, Calcium 8.5, C-React Prot Ext Range 210.00 H 03/19/25 11:50: Urine Color Yellow, Urine Clarity Clear, Urine pH 7.0, Ur Specific [place] 1.005, Urine Protein 30 H, Urine Glucose (UA) Normal, Urine Ketones Negative, Urine Occult Blood 50 H, Urine Nitrite Negative, Urine Bilirubin 1 H, Urine Urobilinogen Normal, Ur Leukocyte Esterase Negative, Urine RBC 0 SEEN, Urine WBC 0 SEEN, Ur Squamous Epith Cells 0 SEEN, Urine Bacteria 0 SEEN, Urine Mucus 0 SEEN Imaging Radiology Impression A/V Fistula Ultrasound 03/19/25 08:37 Interpretation Summary Patent left upper arm fistula with normal velocities and no stenosis, adequate flow volume and diameter. Ordering Physician: Karthik Ko Referring Physician: Yaw Singh Performed By: Di Appiah RVT Chest X-Ray 03/19/25 08:50 IMPRESSION: 1. Gastric pull-through. 2. Cardiac enlargement. Median sternotomy and TAVR. Aortic atherosclerosis. 3. Moderate left pleural effusion and small right pleural effusion. Compressive atelectasis of the lung bases and inferior lingula. Similar to prior. Reading Location: [facility] Forearm X-Ray 03/19/25 08:50 IMPRESSION: Soft tissue swelling. Reading Location: [facility] Hip/Pelvis X-Ray 03/19/25 08:50 IMPRESSION: Normal-appearing left total hip arthroplasty. Other findings as noted. Reading Location: [id number] 03/19/25 13:18 IMPRESSION: No acute injury to the left hip. Reading Location: [facility]
--- NOTE | 2025-03-19 16:15 | CONS.ORTHO ---
HPI Consult Data Date of Consult: 03/19/25 HPI Narrative Reason for Consultation: Left thigh pain HPI Narrative: NICKO ROSALES, is a 69 M who presents with left thigh pain roughly 1 year status post left hip hemiarthroplasty. In February 2024 patient had a fall had a hemiarthroplasty for left femoral neck fracture. Patient recovered well. He has a history for renal failure and dialysis 3 times a week. Patient reports that he was walking well with no pain and on the morning of March 04 he left his house using a cane he had a vascular procedure what sounds like a fistulogram with his vascular doctor and when he returned home he had pain and swelling in his left thigh. Patient reports he is at difficulty with active hip flexion. He cannot lay flat in bed since that time. He notes that the pain is more associated with active motion than it is with weightbearing itself. He has been using a walker and wheelchair to get around. His family is at bedside and confirms this. Ultimately the pain became and immobility led him to seek care in the emergency department today. At this point he is now admitted to the hospital. The primary team has consulted the vascular surgeon to address any vascular issues. I been consulted to address his left hip pain. I was the original surgeon in February 2024. Patient denies any fevers chills or night sweats. There is some report that the left thigh was erythematous at 1 point however he reports minimal erythema today. 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 Knee pain Hx of sinus tachycardia Hematuria Pleural effusion Thrombocytopenia Wears glasses Cancer Cancer Pressure ulcer History of renal dialysis History of renal disease Injury of back History of GI bleed Gastric reflux History of stress test History of echocardiogram Cardiology follow-up encounter ESRD (end stage renal disease) on dialysis Acute exacerbation of chronic heart failure Adenocarcinoma of esophagus Non-smoker Esophageal carcinoma Atherosclerosis of coronary artery of [place] heart without angina 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 Essential (primary) hypertension Non-rheumatic aortic stenosis Hyperlipidemia Atherosclerotic heart disease of [place] coronary artery with other forms of angina pectoris Encounter for long-term current use of high risk medication abnormal stress test Exertional chest pain Home Medications ?Medication ?Instructions ?Recorded ?Last Taken ?Type atorvastatin 80 mg tablet 80 mg PO QHS CHOLESTEROL #90 tabs 05/15/22 12/24/23 Rx metoprolol tartrate 25 mg tablet 25 mg PO BID #0 tabs 10/25/23 06/30/24 05:30 Rx pantoprazole 40 mg tablet,delayed 40 mg PO BID #0 tabs 10/25/23 06/30/24 05:30 Rx release ferrous sulfate 325 mg (65 mg 325 mg PO DAILY #90 tabs 11/20/23 06/29/24 Rx iron) tablet polyethylene glycol 3350 17 17 g PO DAILY PRN constipation 12/04/23 Unknown History gram/dose oral powder (Miralax) ondansetron 4 mg disintegrating 4 mg PO Q8H PRN PRN nausea and 12/25/23 12/25/23 08:00 History tablet vomiting nitroglycerin 0.4 mg sublingual 0.4 mg sublingual PRN PRN angina 02/14/24 Unknown History tablet aspirin 81 mg chewable tablet 81 mg PO BID #0 tabs 02/17/24 03/03/25 Rx acetaminophen 500 mg tablet 1,000 mg (2 x 500 mg) PO Q8 pain 7 03/07/25 Unknown Rx days #42 tabs ascorbic acid (vitamin C) 500 mg 500 mg PO DAILY 03/19/25 Unknown History capsule ezetimibe 10 mg tablet 10 mg PO DAILY 03/19/25 Unknown History fexofenadine 60 mg tablet 60 mg PO Q24H 03/19/25 Unknown History fluticasone propionate 50 2 spray intranasal BID 03/19/25 Unknown History mcg/actuation nasal spray,suspension montelukast 10 mg tablet 10 mg PO QHS 03/19/25 Unknown History olanzapine 2.5 mg tablet 2.5 mg PO QHS 03/19/25 Unknown History oxycodone-acetaminophen 5 mg-325 1 tab PO Q6H PRN PRN pain 03/19/25 Unknown History mg tablet vitamin B complex-vitamin C-folic 1 tab PO DAILY 03/19/25 Unknown History acid 0.8 mg tablet (Nohelia-Luz) Allergy/AdvReac Type Severity Reaction Status Date / Time No Known Allergies Allergy Verified 03/19/25 07:46 Family History Father Heart disease Myocardial infarction Hypertension Brother Hypertension Sister Heart disease Myocardial infarction Surgical History History of hip replacement (~02/2024) History of cardiac catheterization History of esophagogastroduodenoscopy (EGD) Hx of surgical procedure History of aortic valve replacement (03/03/19) History of coronary artery stent placement (12/31/18) H/O coronary artery bypass surgery (09/18/02) History of tonsillectomy History of hernia repair Social History Smoking Status: Never smoker alcohol intake: never substance use type: does not use caffeine: No what type of physical activity do you participate in: walking frequency: daily ROS ROS Narrative 14 point review systems outside was mentioned in HPI is negative Vital Signs Vital Signs Vital Signs: 03/19/25 07:44 03/19/25 07:46 03/19/25 08:38 Temperature 98.2 F 98.2 F Temperature Source Oral Oral Pulse Rate 90 90 Respiratory Rate 16 16 Respiratory Effort Normal Respiratory Pattern Tachypnea Blood Pressure 122/75 H 122/75 H Blood Pressure Mean 90 90 Blood Pressure Source Blood Pressure Position Blood Pressure Location Pulse Ox 98 98 Oxygen Delivery Method Room Air Room Air 03/19/25 10:35 03/19/25 12:00 03/19/25 13:28 Temperature 98.7 F Temperature Source Pulse Rate 85 85 84 Respiratory Rate 30 H 33 H Respiratory Effort Respiratory Pattern Blood Pressure 134/83 H 131/69 H 112/78 Blood Pressure Mean 100 89 89 Blood Pressure Source Blood Pressure Position Blood Pressure Location Pulse Ox 99 97 100 Oxygen Delivery Method Room Air Room Air 03/19/25 13:56 03/19/25 14:23 Temperature 98.0 F Temperature Source Oral Pulse Rate 91 Respiratory Rate 16 Respiratory Effort Normal Respiratory Pattern Blood Pressure 109/73 Blood Pressure Mean 85 Blood Pressure Source Monitor Blood Pressure Position Semi-Fowlers Blood Pressure Location Right Arm Pulse Ox 94 Oxygen Delivery Method Room Air Weight Weight: 150 lb 12.8 oz Body Mass Index (BMI) 22.3 Physical Exam Const alert and oriented x3 General Appearance: cooperative HEENT normocephalic Eyes PERRL Neck no JVD Resp normal respiratory effort Cardio Cardio Narrative: Regular distal pulse rate GI non-distended Extremity Extremity Narrative: Left upper extremity: Patient has fistula in left upper extremity with multiple puncture sites from dialysis Left lower extremity: Previous incision is clean dry and intact. When laying the patient flat extending hip patient reports increase in pain. Comfortable with hip flexed at 20 degrees. Patient tolerates passive hip flexion to about 70 degrees with reported pain with flexion beyond 70 degrees. Additionally patient reports pain with passive internal/external rotation of the hip. There is swelling underlying the previous surgical incision compared to the contralateral side which is firm to palpate at this time. No erythematous or appreciated. Increased warmth compared to the remainder of the extremity. Left lower extremities neurovasc intact distally. Pain with active flexion of the hip. Skin Skin Narrative: Previous incision is clean dry and intact in the left lower extremity Neuro CN's II-XII intact bilaterally Psych affect normal Medical Records Data Attestation: I reviewed the patient's medical records Lab / Micro Data 03/19/25 08:24 03/19/25 08:24 Labs: Laboratory Results - last 24 hr 03/19/25 08:24: WBC 11.6 H, RBC 3.44 L, Hgb 10.4 L, Hct 32.7 L, MCV 95.1 H, MCH 30.2, MCHC 31.8 L, RDW Std Deviation 47.4 H, RDW Coeff of Marcos 13.6, Plt Count 293, MPV 9.4, Immature Gran % (Auto) 0.600, Neut % (Auto) 91.0 H, Lymph % (Auto) 3.6 L, [place] % (Auto) 3.9, Eos % (Auto) 0.6, Baso % (Auto) 0.3, Absolute Neuts (auto) 10.5 H, Absolute Lymphs (auto) 0.42 L, Nucleated RBC % 0, ESR 54 H, PT 16.8 H, INR 1.3, APTT 37.2 H, Sodium 138, Potassium 3.6, Chloride 97 L, Carbon Dioxide 30.8, Anion Gap 11, BUN 47 H, Creatinine 2.63 H, Est GFR (MDRD) Non-Af 25 L, BUN/Creatinine Ratio 18.0, Glucose 101 H, Lactic Acid 1.4, Calcium 8.5, C-React Prot Ext Range 210.00 H 03/19/25 11:50: Urine Color Yellow, Urine Clarity Clear, Urine pH 7.0, Ur Specific [place] 1.005, Urine Protein 30 H, Urine Glucose (UA) Normal, Urine Ketones Negative, Urine Occult Blood 50 H, Urine Nitrite Negative, Urine Bilirubin 1 H, Urine Urobilinogen Normal, Ur Leukocyte Esterase Negative, Urine RBC 0 SEEN, Urine WBC 0 SEEN, Ur Squamous Epith Cells 0 SEEN, Urine Bacteria 0 SEEN, Urine Mucus 0 SEEN Imaging Radiology Impression A/V Fistula Ultrasound 03/19/25 08:37 Interpretation Summary Patent left upper arm fistula with normal velocities and no stenosis, adequate flow volume and diameter. Ordering Physician: Karthik Ko Referring Physician: Yaw Singh Performed By: Di Appiah RVT Chest X-Ray 03/19/25 08:50 IMPRESSION: 1. Gastric pull-through. 2. Cardiac enlargement. Median sternotomy and TAVR. Aortic atherosclerosis. 3. Moderate left pleural effusion and small right pleural effusion. Compressive atelectasis of the lung bases and inferior lingula. Similar to prior. Reading Location: [facility] Forearm X-Ray 03/19/25 08:50 IMPRESSION: Soft tissue swelling. [facility]Pelvis [facility] 03/19/25 08:50 IMPRESSION: Normal-appearing left total hip arthroplasty. Other findings as noted. Reading Location: [place] [id number] Independent review: No acute fractures or bony lesions. Stable hemiarthroplasty hip replacement Lower Extremity CT 03/19/25 13:18 IMPRESSION: No acute injury to the left hip. Reading Location: [facility] Independent review: At this point no abnormalities are appreciated with the bony structures. Anterior thigh does appear to have fluid collection in the anterolateral soft tissues underlying the area of swelling however, not confirmed with radiologist read. Assessment & Plan Assessment/Plan (1) Pain associated with prosthesis of hip joint: PLAN: Natural history of the disease process and treatment options were discussed the patient. Ultimately, I did significant concerns patient has periprosthetic joint infection. His ESR is elevated his CRP is over 200. He has pain associated with this tenderness associated with procedure which involved intravenous access. Additionally he is a dialysis patient who gets intravenous access done 3 times a week. Based on his risk factors his physical examination and labs is impaired that we rule out periprosthetic joint infection. If periprosthetic joint faction is confirmed surgical treatment is likely recommended. I would like to obtain an aspiration ultimately, if I could perform this myself I would like to. Based on the CT scan I would like to gather further imaging in order to evaluate for underlying fluid collection for aspiration. If we can confirm fluid collection which could direct fluoroscopic guided aspiration or even a bedside aspiration depending on size of fluid collection we could use this fluid to confirm periprosthetic joint infection. Based on this I would like to move forward with ordering an MRI stat and proceed from there. I have discussed this plan with the patient and his family at bedside they demonstrated understanding. (2) Left hip pain: PLAN: See above (3) ESRD on dialysis: PLAN: Per primary service
--- NOTE | 2025-03-19 16:31 | MRI_ITS ---
PROCEDURE: LOWER EXT JOINT ONLY (ROUTINE) 03/19/2025 REASON FOR EXAM: POSSIBLE PERIPROASTHETIC JOINT INFECTION TECHNIQUE: Procedure Code: MRILEJ Modality: MR Procedure: LOWER EXT JOINT ONLY (ROUTINE) Multiplanar and multisequence images were obtained without IV contrast administration. COMPARISON: 02.15.2024 FINDINGS: Redemonstration of the left hip arthroplasty. Currently noted multiple cystic fluid collections seen surrounding the hip prosthesis and possibly communicating with the joint seen along the anterior, lateral and posterior aspects, the largest component is seen anteriorly measures 8.1 x 7.4 cm along its maximum dimensions. Associated surrounding diffuse swelling and edema signal of the adjacent subcutaneous and intermuscular fat planes seen extending to the proximal thigh. Findings are highly suggestive of a periprosthetic infection or abscess formation, recommend clinical correlation. Diffuse soft tissue edema is seen also involving the rest of the pelvis muscles likely representing reactive changes. Intact visualized parts of the right hip joint. Thickening and increased signal of the left gluteus minimus tendon seen without tears reflecting tendinitis. Normal appearance of the rest of tendons around the hip joint. No evidence of tears. Preserved spherical contour of the right femoral head with no signs of avascular necrosis or infiltration. The scanned parts of the upper femur and pelvis are unremarkable. Colonic diverticulosis seen without complications. MRI/Lower Ext Joint Only (Routine) IMPRESSION: Redemonstration of the left hip arthroplasty. Currently noted multiple cystic fluid collections seen surrounding the hip prosthesis and possibly communicating with the joint seen along the anterior, l ateral and posterior aspects, the largest component is seen anteriorly measures 8.1 x 7.4 cm along its maximum dimension s. Associated surrounding diffuse swelling and edema signal of the adjacent subcutaneous and intermuscular fat planes seen ext ending to the proximal thigh. Findings are highly suggestive of a periprosthetic infection with abscesses formation, recommend cl inical correlation. Left gluteus minimus tendinitis. Reading [facility]
[2025-03-19] MEDS: Heparin Injection (Vial) 5,000 UNIT/ML VIAL 5000 UNIT SC (20:31)
[2025-03-20] VITALS (12 sets, daily range): BP systolic 93–117; BP diastolic 60–84; PULSE 67–78; RESP 12–18; TEMP 36.4–36.9; O2SAT 94–100; BMI 22.3; BMI 22.1
--- NOTE | 2025-03-20 06:59 | EX.PCM.CON.S ---
Assessment & Plan Assessment/Plan (1) ESRD on dialysis: (2) Arteriovenous fistula of left upper extremity: PLAN: Plan He has had persistent LUE edema despite prior venous outflow angioplasty; likely secondary to the noted large branch from his fistula. This would best be addressed via branch ligation in the OR and expect that would resolve his LUE edema. However, this is not urgent at this time. His fistula is still functioning well and he has been completing his dialysis sessions; can continue to use fistula for dialysis. In light of his L periprosthetic hip infection, will defer any further fistula interventions until this has resolved; will plan for outpatient follow-up. HPI Consult Data Date of Consult: 03/20/25 HPI Narrative HPI Narrative: NICKO ROSALES, is a 69 M who presented to the [facility] ER as referred from his dialysis unit with concerns regarding persistent LUE edema and significant L hip pain. He had L brachiocephalic AVF creation 06/30/24. The fistula matured well in expected timeline and has been used for dialysis since August 2024; in January 2025 he developed significant generalized L forearm edema. He had fistulogram on 03/04/25 which demonstrated L innominate stenosis which was treated with angioplasty; it also demonstrated a large branch from the fistula filling his forearm veins. Since the fistulogram, he has not noticed the bleeding after decannulation that he was having prior but his LUE swelling has been persistent. With respect to his hip, he incidentally developed significant L hip pain on 03/04 which has since been progressive and has significantly limited his mobility. He had an MRI yesterday evening suggestive of L periprosthetic hip infection. He had aspiration by ortho this morning; likely plan for intervention in OR. [facility] Medical History Compression fracture of L5 vertebra Compression fracture of L4 vertebra Compression fracture of L3 vertebra Compression fracture of L2 Compression fracture of L1 lumbar vertebra Acute on chronic anemia Current use of chcf anticoagulation Knee pain Hx of sinus tachycardia Hematuria Pleural effusion Thrombocytopenia Wears glasses Cancer Cancer Pressure ulcer History of renal dialysis History of renal disease Injury of back History of GI bleed Gastric reflux History of stress test History of echocardiogram Cardiology follow-up encounter ESRD (end stage renal disease) on dialysis Acute exacerbation of chronic heart failure Adenocarcinoma of esophagus Non-smoker Esophageal carcinoma Atherosclerosis of coronary artery of [place] heart without angina 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 Essential (primary) hypertension Non-rheumatic aortic stenosis Hyperlipidemia Atherosclerotic heart disease of [place] coronary artery with other forms of angina pectoris Encounter for long-term current use of high risk medication abnormal stress test Exertional chest pain Home Medications ?Medication ?Instructions ?Recorded ?Last Taken ?Type atorvastatin 80 mg tablet 80 mg PO QHS CHOLESTEROL #90 tabs 05/15/22 12/24/23 Rx metoprolol tartrate 25 mg tablet 25 mg PO BID #0 tabs 10/25/23 06/30/24 05:30 Rx pantoprazole 40 mg tablet,delayed 40 mg PO BID #0 tabs 10/25/23 06/30/24 05:30 Rx release ferrous sulfate 325 mg (65 mg 325 mg PO DAILY #90 tabs 11/20/23 06/29/24 Rx iron) tablet polyethylene glycol 3350 17 17 g PO DAILY PRN constipation 12/04/23 Unknown History gram/dose oral powder (Miralax) ondansetron 4 mg disintegrating 4 mg PO Q8H PRN PRN nausea and 12/25/23 12/25/23 08:00 History tablet vomiting nitroglycerin 0.4 mg sublingual 0.4 mg sublingual PRN PRN angina 02/14/24 Unknown History tablet aspirin 81 mg chewable tablet 81 mg PO BID #0 tabs 02/17/24 03/03/25 Rx acetaminophen 500 mg tablet 1,000 mg (2 x 500 mg) PO Q8 pain 7 03/07/25 Unknown Rx days #42 tabs ascorbic acid (vitamin C) 500 mg 500 mg PO DAILY 03/19/25 Unknown History capsule ezetimibe 10 mg tablet 10 mg PO DAILY 03/19/25 Unknown History fexofenadine 60 mg tablet 60 mg PO Q24H 03/19/25 Unknown History fluticasone propionate 50 2 spray intranasal BID 03/19/25 Unknown History mcg/actuation nasal spray,suspension montelukast 10 mg tablet 10 mg PO QHS 03/19/25 Unknown History olanzapine 2.5 mg tablet 2.5 mg PO QHS 03/19/25 Unknown History oxycodone-acetaminophen 5 mg-325 1 tab PO Q6H PRN PRN pain 03/19/25 Unknown History mg tablet vitamin B complex-vitamin C-folic 1 tab PO DAILY 03/19/25 Unknown History acid 0.8 mg tablet (Nohelia-Luz) Allergy/AdvReac Type Severity Reaction Status Date / Time No Known Allergies Allergy Verified 03/19/25 07:46 Family History Father Heart disease Myocardial infarction Hypertension Brother Hypertension Sister Heart disease Myocardial infarction Surgical History History of hip replacement (~02/2024) History of cardiac catheterization History of esophagogastroduodenoscopy (EGD) Hx of surgical procedure History of aortic valve replacement (03/03/19) History of coronary artery stent placement (12/31/18) H/O coronary artery bypass surgery (09/18/02) History of tonsillectomy History of hernia repair Social History Smoking Status: Never smoker alcohol intake: never substance use type: does not use caffeine: No what type of physical activity do you participate in: walking frequency: daily Physical Exam Const alert, oriented x3 and no apparent distress HEENT normocephalic and head/scalp atraumatic Eyes General Eye: normal appearance of both eyes Neck General: normal visual inspection Resp normal respiratory effort Cardio Rate: regular rate Extremity Extremity Narrative: LUE AVF with good thrill; stable LUE edema, primarily in the forearm; palpable L radial pulse Neuro Speech: speech normal Psych mental status grossly normal Appearance: grossly normal Lab / Micro Data 03/20/25 07:12 03/20/25 07:12 Labs: Laboratory Results - last 24 hr 03/19/25 08:24: WBC 11.6 H, RBC 3.44 L, Hgb 10.4 L, Hct 32.7 L, MCV 95.1 H, MCH 30.2, MCHC 31.8 L, RDW Std Deviation 47.4 H, RDW Coeff of Marcos 13.6, Plt Count 293, MPV 9.4, Immature Gran % (Auto) 0.600, Neut % (Auto) 91.0 H, Lymph % (Auto) 3.6 L, [place] % (Auto) 3.9, Eos % (Auto) 0.6, Baso % (Auto) 0.3, Absolute Neuts (auto) 10.5 H, Absolute Lymphs (auto) 0.42 L, Nucleated RBC % 0, ESR 54 H, PT 16.8 H, INR 1.3, APTT 37.2 H, Sodium 138, Potassium 3.6, Chloride 97 L, Carbon Dioxide 30.8, Anion Gap 11, BUN 47 H, Creatinine 2.63 H, Est GFR (MDRD) Non-Af 25 L, BUN/Creatinine Ratio 18.0, Glucose 101 H, Lactic Acid 1.4, Calcium 8.5, C-React Prot Ext Range 210.00 H 03/19/25 11:50: Urine Color Yellow, Urine Clarity Clear, Urine pH 7.0, Ur Specific [place] 1.005, Urine Protein 30 H, Urine Glucose (UA) Normal, Urine Ketones Negative, Urine Occult Blood 50 H, Urine Nitrite Negative, Urine Bilirubin 1 H, Urine Urobilinogen Normal, Ur Leukocyte Esterase Negative, Urine RBC 0 SEEN, Urine WBC 0 SEEN, Ur Squamous Epith Cells 0 SEEN, Urine Bacteria 0 SEEN, Urine Mucus 0 SEEN Imaging Radiology Impression A/V Fistula Ultrasound 03/19/25 08:37 Interpretation Summary Patent left upper arm fistula with normal velocities and no stenosis, adequate flow volume and diameter. Ordering Physician: Karthik Ko Referring Physician: Yaw Singh Performed By: Di Appiah Devang Chest X-Ray 03/19/25 08:50 IMPRESSION: 1. Gastric pull-through. 2. Cardiac enlargement. Median sternotomy and TAVR. Aortic atherosclerosis. 3. Moderate left pleural effusion and small right pleural effusion. Compressive atelectasis of the lung bases and inferior lingula. Similar to prior. Reading Location: [id number] Forearm X-Ray 03/19/25 08:50 IMPRESSION: Soft tissue swelling. Reading Location: [facility] Hip/Pelvis X-Ray 03/19/25 08:50 IMPRESSION: Normal-appearing left total hip arthroplasty. Other findings as noted. Reading Location: [place] [id number] 03/19/25 13:18 IMPRESSION: No acute injury to the left hip. Reading Location: [id number] Lower Extremity MRI 03/19/25 16:31 IMPRESSION: Redemonstration of the left hip arthroplasty. Currently noted multiple cystic fluid collections seen surrounding the hip prosthesis and possibly communicating with the joint seen along the anterior, lateral and posterior aspects, the largest component is seen anteriorly measures 8.1 x 7.4 cm along its maximum dimensions. Associated surrounding diffuse swelling and edema signal of the adjacent subcutaneous and intermuscular fat planes seen extending to the proximal thigh. Findings are highly suggestive of a periprosthetic infection with abscesses formation, recommend clinical correlation. Left gluteus minimus tendinitis. [facility] Charges/Coding Visit Charges Inpatient E&M: 53462 Init Hosp L1
[2025-03-20 07:29] LABS: Hematocrit 29.8 % (40-54); Hemoglobin 9.7 g/dL (13.0-16.5); Immature Granulocytes Count 0.070 X10^3/uL (0.0-0.0); Mean Corp Hgb Conc 32.6 g/dL (32-36); Mean Corpuscular Volume 93.7 fL (80-94); Mean Platelet Vol. 9.1 fl (6.2-12.0); NRBC Flagged by Analyzer 0 % (0-5); Platelet Count 268 K/mm3 (150-450); RBC Distribution Width CV 13.7 % (11.6-14.6); RBC Distribution Width SD 46.8 fl (35.1-43.9); Red Blood Count 3.18 M/mm3 (4.6-6.2); White Blood Count 6.9 K/mm3 (4.4-11.0)
--- NOTE | 2025-03-20 07:48 | PCM.PN.HOSP ---
Reason for Visit Chief Complaint: left hip pain. Subjective Subjective Patient had from his left groin aspirated copious purulence. Patient asked feels better after the aspiration. Objective Data Objective Data Vital Signs: Vital Signs Temp Pulse Resp BP Pulse Ox O2 Del Method 36.6 C 77 18 103/66 96 Room Air 03/20/25 04:14 03/20/25 04:14 03/20/25 04:14 03/20/25 04:14 03/20/25 04:14 03/20/25 04:15 Oxygen Delivery Method Room Air Weight: 68.402 kg Body Mass Index (BMI) 22.3 Intake & Output: Intake and Output for Last 24 Hours 03/18/25 03/19/25 03/20/25 23:59 23:59 23:59 Intake Total 240 / 240 Output Total 400 / 400 300 / 300 Balance -160 / -160 -300 / -300 Lab / Micro Data 03/20/25 07:12 03/20/25 07:12 Labs: Laboratory Results - last 24 hr 03/19/25 08:24: WBC 11.6 H, RBC 3.44 L, Hgb 10.4 L, Hct 32.7 L, MCV 95.1 H, MCH 30.2, MCHC 31.8 L, RDW Std Deviation 47.4 H, RDW Coeff of [place]cos 13.6, Plt Count 293, MPV 9.4, Immature Gran % (Auto) 0.600, Neut % (Auto) 91.0 H, Lymph % (Auto) 3.6 L, [place] % (Auto) 3.9, Eos % (Auto) 0.6, Baso % (Auto) 0.3, Absolute Neuts (auto) 10.5 H, Absolute Lymphs (auto) 0.42 L, Nucleated RBC % 0, ESR 54 H, PT 16.8 H, INR 1.3, APTT 37.2 H, Sodium 138, Potassium 3.6, Chloride 97 L, Carbon Dioxide 30.8, Anion Gap 11, BUN 47 H, Creatinine 2.63 H, Est GFR (MDRD) Non-Af 25 L, BUN/Creatinine Ratio 18.0, Glucose 101 H, Lactic Acid 1.4, Calcium 8.5, C-React Prot Ext Range 210.00 H 03/19/25 11:50: Urine Color Yellow, Urine Clarity Clear, Urine pH 7.0, Ur Specific [place] 1.005, Urine Protein 30 H, Urine Glucose (UA) Normal, Urine Ketones Negative, Urine Occult Blood 50 H, Urine Nitrite Negative, Urine Bilirubin 1 H, Urine Urobilinogen Normal, Ur Leukocyte Esterase Negative, Urine RBC 0 SEEN, Urine WBC 0 SEEN, Ur Squamous Epith Cells 0 SEEN, Urine Bacteria 0 SEEN, Urine Mucus 0 SEEN 03/20/25 07:12: WBC 6.9, RBC 3.18 L, Hgb 9.7 L, Hct 29.8 L, MCV 93.7, MCH 30.5, MCHC 32.6, RDW Std Deviation 46.8 H, RDW Coeff of [place] 13.7, Plt Count 268, MPV 9.1, Immature Gran % (Auto) 1.000 H, Neut % (Auto) 82.6 H, Lymph % (Auto) 9.1 L, [place] % (Auto) 5.3, Eos % (Auto) 1.6, Baso % (Auto) 0.4, Absolute Neuts (auto) 5.7, Absolute Lymphs (auto) 0.63 L, Nucleated RBC % 0 Radiography Diagnostic Testing: Radiology Impression A/V Fistula Ultrasound 03/19/25 08:37 Interpretation Summary Patent left upper arm fistula with normal velocities and no stenosis, adequate flow volume and diameter. Ordering Physician: Karthik Ko Referring Physician: Yaw Singh Performed By: Di Appiah RVT Chest X-Ray 03/19/25 08:50 IMPRESSION: 1. Gastric pull-through. 2. Cardiac enlargement. Median sternotomy and TAVR. Aortic atherosclerosis. 3. Moderate left pleural effusion and small right pleural effusion. Compressive atelectasis of the lung bases and inferior lingula. Similar to prior. Reading Location: [facility] Forearm X-Ray 03/19/25 08:50 IMPRESSION: Soft tissue swelling. Reading Location: [facility] Hip/Pelvis X-Ray 03/19/25 08:50 IMPRESSION: Normal-appearing left total hip arthroplasty. Other findings as noted. Reading Location: [id number] 03/19/25 13:18 IMPRESSION: No acute injury to the left hip. Reading Location: [id number] Lower Extremity MRI 03/19/25 16:31 IMPRESSION: Redemonstration of the left hip arthroplasty. Currently noted multiple cystic fluid collections seen surrounding the hip prosthesis and possibly communicating with the joint seen along the anterior, lateral and posterior aspects, the largest component is seen anteriorly measures 8.1 x 7.4 cm along its maximum dimensions. Associated surrounding diffuse swelling and edema signal of the adjacent subcutaneous and intermuscular fat planes seen extending to the proximal thigh. Findings are highly suggestive of a periprosthetic infection with abscesses formation, recommend clinical correlation. Left gluteus minimus tendinitis. [facility] Physical Exam Const alert and no apparent distress Constitutional Narrative: Nontoxic. Afebrile. Seen while on hemodialysis. HEENT head/scalp atraumatic and moist oral mucous membranes Resp normal respiratory effort and no retractions Extremity Extremity Narrative: Right anterior hip incision with less induration. No erythema. Neuro no focal motor deficits Sensorium / Orientation: awake and alert Psych affect normal Assessment & Plan Assessment/Plan (1) Edema of left upper extremity: PLAN: Patient with fistulas left upper extremity. Underwent a recent fistulogram. Will do a duplex to see if there is any kind of DVT that may be contributing to this. Keep left upper extremity elevated. I discussed with the vascular surgery team but with the active infection, patient will need a fistula revision/branch ligation but with the active infection this will need to be done as outpatient. (2) Left hip pain: PLAN: Due to periprosthetic infection. Patient went aspiration and had copious amount of fluid aspirated, approximately 180 cc. Etiologies could be muscle strain/spasm/tear versus infection. Patient did have a hip replacement about a year ago but has been doing well up until this recent intervention. Patient did have an elevated ESR. CRP is currently pending. Unclear if this is infected but will check a CT and if that is unremarkable then may need to check an MRI. Patient's family member at bedside stated that it was red at 1 point but currently it is not red but just very tender. Pain control CT Left hip negative. MRI left hip: Multiple cystic fluid collections seen surrounding the hip prosthesis and possibly communicating with the joint along the anterior, lateral and posterior aspect. Largest component seen 8.1 x 7.4 cm. Associated surrounding diffuse swelling and edema. Findings suggestive of periprosthetic infection with abscess formation. Started antibiotics with pip-tazo and vancomycin. Infectious disease consultation for long-term antibiotics. (3) ESRD on dialysis: PLAN: Consult nephrology to continue with dialysis. Patient's normal dialysis day is today. Will consult nephrology but no urgent need for dialysis this time this can wait till tomorrow. PLAN: Plan PAD: Continue with aspirin and atorvastatin. GERD: Continue with PPI VTE prophylaxis with heparin CODE STATUS: Addressed with patient. Patient wishes to be full code Charges/Coding Visit Charges Inpatient E&M: 78244 Subs Hosp L2
[2025-03-20 07:57] LABS: Anion Gap 11 (5-15); BUN 53 mg/dL (4-19); BUN/Creat Ratio 19.1 RATIO (10-20); Calcium,Total 8.4 mg/dL (7.6-11.0); Carbon Dioxide 29.5 mmol/L (21.0-32.0); Chloride 97 mmol/L (98-108); Estimated Creatinine Clearance 24.01 ml/min (50-250); Glucose 93 mg/dL (70-99); Potassium 3.8 mmol/L (3.3-5.1)
--- NOTE | 2025-03-20 08:06 | PN.ORTHO_ITS ---
Subjective Subjective Patient's MRI returned overnight. Large area of fluid collection anteriorly and laterally in the hip. At this point I recommend we aspirate hip. Patient was agreeable. Objective Data Objective Data Vital Signs: Vital Signs Temp Pulse Resp BP Pulse Ox O2 Del Method 98 F 77 18 103/66 96 Room Air 03/20/25 04:14 03/20/25 04:14 03/20/25 04:14 03/20/25 04:14 03/20/25 04:14 03/20/25 04:15 Oxygen Delivery Method Room Air Weight: 150 lb 12.8 oz Body Mass Index (BMI) 22.3 Intake & Output: Intake and Output for Last 24 Hours 03/18/25 03/19/25 03/20/25 23:59 23:59 23:59 Intake Total 240 / 240 Output Total 400 / 400 300 / 300 Balance -160 / -160 -300 / -300 Lab / Micro Data Attestation: I reviewed the patient's lab results. 03/20/25 07:12 03/20/25 07:12 Labs: Laboratory Results - last 24 hr 03/19/25 08:24: WBC 11.6 H, RBC 3.44 L, Hgb 10.4 L, Hct 32.7 L, MCV 95.1 H, MCH 30.2, MCHC 31.8 L, RDW Std Deviation 47.4 H, RDW Coeff of Marcos 13.6, Plt Count 293, MPV 9.4, Immature Gran % (Auto) 0.600, Neut % (Auto) 91.0 H, Lymph % (Auto) 3.6 L, [place] % (Auto) 3.9, Eos % (Auto) 0.6, Baso % (Auto) 0.3, Absolute Neuts (auto) 10.5 H, Absolute Lymphs (auto) 0.42 L, Nucleated RBC % 0, ESR 54 H, PT 16.8 H, INR 1.3, APTT 37.2 H, Sodium 138, Potassium 3.6, Chloride 97 L, Carbon Dioxide 30.8, Anion Gap 11, BUN 47 H, Creatinine 2.63 H, Est GFR (MDRD) Non-Af 25 L, BUN/Creatinine Ratio 18.0, Glucose 101 H, Lactic Acid 1.4, Calcium 8.5, C- React Prot Ext Range 210.00 H 03/19/25 11:50: Urine Color Yellow, Urine Clarity Clear, Urine pH 7.0, Ur Specific [place] 1.005, Urine Protein 30 H, Urine Glucose (UA) Normal, Urine Ketones Negative, Urine Occult Blood 50 H, Urine Nitrite Negative, Urine Bilirubin 1 H, Urine Urobilinogen Normal, Ur Leukocyte Esterase Negative, Urine RBC 0 SEEN, Urine WBC 0 SEEN, Ur Squamous Epith Cells 0 SEEN, Urine Bacteria 0 SEEN, Urine Mucus 0 SEEN 03/20/25 07:12: WBC 6.9, RBC 3.18 L, Hgb 9.7 L, Hct 29.8 L, MCV 93.7, MCH 30.5, MCHC 32.6, RDW Std Deviation 46.8 H, RDW Coeff of Marcos 13.7, Plt Count 268, MPV 9.1, Immature Gran % (Auto) 1.000 H, Neut % (Auto) 82.6 H, Lymph % (Auto) 9.1 L, [place] % (Auto) 5.3, Eos % (Auto) 1.6, Baso % (Auto) 0.4, Absolute Neuts (auto) 5.7, Absolute Lymphs (auto) 0.63 L, Nucleated RBC % 0, Sodium 137, Potassium 3.8, Chloride 97 L, Carbon Dioxide 29.5, Anion Gap 11, BUN 53 H, Creatinine 2.77 H, Estim Creat Clear Calc 24.01 L, Est GFR (MDRD) Non-Af 24 L, BUN/Creatinine Ratio 19.1, Glucose 93, Calcium 8.4 Radiography Diagnostic Testing: Radiology Impression A/V Fistula Ultrasound 03/19/25 08:37 Interpretation Summary Patent left upper arm fistula with normal velocities and no stenosis, adequate flow volume and diameter. Ordering Physician: Karthik Ko Referring Physician: Yaw Singh Performed By: Di Appiah RVT Chest X-Ray 03/19/25 08:50 IMPRESSION: 1. Gastric pull-through. 2. Cardiac enlargement. Median sternotomy and TAVR. Aortic atherosclerosis. 3. Moderate left pleural effusion and small right pleural effusion. Compressive atelectasis of the lung bases and inferior lingula. Similar to prior. Reading Location: [id number] Forearm X-Ray 03/19/25 08:50 IMPRESSION: Soft tissue swelling. Reading Location: [facility] Hip/Pelvis X-Ray 03/19/25 08:50 IMPRESSION: Normal-appearing left total hip arthroplasty. Other findings as noted. Reading Location: [id number] 03/19/25 13:18 IMPRESSION: No acute injury to the left hip. Reading Location: [facility] Lower Extremity MRI 03/19/25 16:31 IMPRESSION: Redemonstration of the left hip arthroplasty. Currently noted multiple cystic fluid collections seen surrounding the hip prosthesis and possibly communicating with the joint seen along the anterior, lateral and posterior aspects, the largest component is seen anteriorly measures 8.1 x 7.4 cm along its maximum dimensions. Associated surrounding diffuse swelling and edema signal of the adjacent subcutaneous and intermuscular fat planes seen extending to the proximal thigh. Findings are highly suggestive of a periprosthetic infection with abscesses formation, recommend clinical correlation. Left gluteus minimus tendinitis. [facility] Independent review of the MRI shows well-fixed implants of the left hip with significant fluid collection anteriorly laterally. Just under the incision. Physical Exam Const alert and oriented x3 Extremity Extremity Narrative: Left lower extremity: Left thigh is without erythema. Incisions clean dry intact. Pain with range of motion. Moderate to large amount of swelling with fluctuance in the left hip. Assessment & Plan Assessment/Plan (1) Pain associated with prosthesis of hip joint: PLAN: Procedure: Aspiration left hip sterile gloves were donned. The area around the incision was prepped using chlorhexidine prep solution and then alcohol. An 18-gauge needle was used to aspirate the hip. We obtained 180 cc of pea green fluid from the hip just below the incision. We aspirated fluid until no further fluid could be obtained which required multiple syringes. After reviewing the purulent nature of the fluid I did explain to the patient that he has a periprosthetic joint infection. Recommended we move forward considering patient's health and comorbidities I think most likely treatment plan at this time should be to proceed with a irrigation debridement and exchange of femoral head for the hemiarthroplasty. Risk and benefit of the procedure were discussed the patient including but not limited to blood loss, DVTs, PEs, neurovascular damage, infections including new infections and continued infections which may require multiple surgeries, general risk of anesthesia including loss of life, risk of instability and leg length discrepancies. Patient demonstrates understanding wish to proceed. Will make him n.p.o. after midnight. Will send the fluid for analysis and cultures. I am going to discuss appropriate use of antibiotics with the primary team today he would be okay for them to begin antibiotics starting with broad-spectrum and narrowing down. He is getting dialysis today. Dialysis team felt he would be appropriate for surgery tomorrow morning after dialysis today. (2) Left hip pain: PLAN: See above (3) ESRD on dialysis: PLAN: Per primary service
[2025-03-20] MEDS: PureFlow B 3K Dialysis Soln 1 BAG 6 BAG PF (08:18)
[2025-03-20] MEDS: 0.9% Normal Saline 1,000 ML IV.SOLN. 1000 ML OPERA.SITE (08:18)
--- NOTE | 2025-03-20 09:06 | PCM.RX.CS ---
Consult Antibiotic Management Pharmacy has been consulted to manage selected antibiotic: Vancomycin Type of Intervention Type of Consult: New start Suspected Infection Suspected Infection: Other (HIP INFECTION) Labs Labs: Sodium 137 mmol/L (133-145) 03/20/25 07:12 Potassium 3.8 mmol/L (3.3-5.1) 03/20/25 07:12 Chloride 97 mmol/L (98-108) L 03/20/25 07:12 Carbon Dioxide 29.5 mmol/L (21.0-32.0) 03/20/25 07:12 Anion Gap 11 (5-15) 03/20/25 07:12 BUN 53 mg/dL (4-19) H 03/20/25 07:12 Creatinine 2.77 mg/dL (0.70-1.20) H 03/20/25 07:12 Est GFR (MDRD) Non-Af 24 (>60) L 03/20/25 07:12 BUN/Creatinine Ratio 19.1 RATIO (10-20) 03/20/25 07:12 Glucose 93 mg/dL (70-99) 03/20/25 07:12 Dosing Weight Weight used for dosin kg Estimated Creatinine Clearance Estimated Creatinine Clearance: ESRD ON HD Goal Trough Goal Trough: 15-20 mcg/mL Pharmacy Plan for Drug Dosing Pharmacy Plan for Drug Dosing: Vancomycin 1000 mg IV x 1 after dialysis today, plan for 500 mg after next HD schedule, Sunday, Sunday or Sunday depending on schedule Pharmacy Service will continue to monitor and adjust dosing as required.
[2025-03-20 09:10] LABS: Synovial Fld Mononuclear WBC % 42.2 %; Synovial Fld Polynuclear WBC % 57.8 %
[2025-03-20 09:16] LABS: RBC /Synovial Fluid 0.240 10^6/uL (0)
[2025-03-20 09:58] LABS: AUTO B FLUID DILUENT BKGD CT WBC <0.1 RBC <0.01 (W<.1,R<.01); Source / Synovial Fluid Right Hip
[2025-03-20 09:59] LABS: Appearance /Synovial Fluid Purulent (CLEAR); Color / Synovial Fluid Yellow (Pale Yellow)
[2025-03-20 10:14] LABS: Body Fluid QC Type(s) BF1; Monocyte /Synovial Fluid 2 %
[2025-03-20] MEDS: Vancomycin HCl 1,000 MG in 0.9% Normal Saline (250mL Bag) 250 ML 250 MG IV (12:10)
[2025-03-20] MEDS: 0.9% Saline Lock 10 ML Syringe IV ×2 (12:10→21:50)
[2025-03-20] MEDS: 0.9% Normal Saline (250mL Bag) 250 ML 15 ML IV (12:10)
--- NOTE | 2025-03-20 13:36 | CON.PCM.ID_ITS ---
Assessment & Plan Assessment/Plan (1) Left hip prosthetic joint infection: PLAN: Cxs pending, OR planned for 03/31/25. Cont empiric vanc/zosyn. Is ESRD TTS, so likely will dose abx with dialysis sessions after discharge. Will follow, thank you HPI Consult Data Date of Consult: 03/20/25 HPI Narrative Reason for Consultation: L hip PJI HPI Narrative: NICKO ROSALES, is a 69 M who presented with several weeks progressive L upper leg pain. Had L hip replacement 02/2024. No fever, no chills. Denies redness or drainage at hip. Had difficulty walking, came to ED, admitted 03/19/25. Imaging showed collections present, ortho consulted, aspiration done, plan is for OR tomorrow. Full ROS performed and neg except as noted above. 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 Knee pain Hx of sinus tachycardia Hematuria Pleural effusion Thrombocytopenia Wears glasses Cancer Cancer Pressure ulcer History of renal dialysis History of renal disease Injury of back History of GI bleed Gastric reflux History of stress test History of echocardiogram Cardiology follow-up encounter ESRD (end stage renal disease) on dialysis Acute exacerbation of chronic heart failure Adenocarcinoma of esophagus Non-smoker Esophageal carcinoma Atherosclerosis of coronary artery of [place] heart without angina 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 Essential (primary) hypertension Non-rheumatic aortic stenosis Hyperlipidemia Atherosclerotic heart disease of [place] coronary artery with other forms of angina pectoris Encounter for long-term current use of high risk medication abnormal stress test Exertional chest pain Home Medications ?Medication ?Instructions ?Recorded ?Last Taken ?Type atorvastatin 80 mg tablet 80 mg PO QHS CHOLESTEROL #90 tabs 05/15/22 12/24/23 Rx metoprolol tartrate 25 mg tablet 25 mg PO BID #0 tabs 10/25/23 06/30/24 05:30 Rx pantoprazole 40 mg tablet,delayed 40 mg PO BID #0 tabs 10/25/23 06/30/24 05:30 Rx release ferrous sulfate 325 mg (65 mg 325 mg PO DAILY #90 tabs 11/20/23 06/29/24 Rx iron) tablet polyethylene glycol 3350 17 17 g PO DAILY PRN constipa tion 12/04/23 Unknown History gram/dose oral powder (Miralax) ondansetron 4 mg disintegrating 4 mg PO Q8H PRN PRN na usea and 12/25/23 12/25/23 08:00 History tablet vomiting nitroglycerin 0.4 mg sublingual 0.4 mg sublingual PRN PRN angina 02/14/24 Unknown History tablet aspirin 81 mg chewable tablet 81 mg PO BID #0 tabs 01/3003/03/25 Rx acetaminophen 500 mg tablet 1,000 mg (2 x 500 mg) PO Q 8 pain 7 03/07/25 Unknown Rx days #42 tabs ascorbic acid (vitamin C) 500 mg 500 mg PO DAILY 03/19 Unknown History capsule ezetimibe 10 mg tablet 10 mg PO DAILY 03/19/25 Unkn own History fexofenadine 60 mg tablet 60 mg PO Q24H 03/19/25 Unkno wn History fluticasone propionate 50 2 spray intranasal BID 03/19 Unknown History mcg/actuation nasal spray,suspension montelukast 10 mg tablet 10 mg PO QHS 03/19/25 Unknow n History olanzapine 2.5 mg tablet 2.5 mg PO QHS 03/19/25 Unkno wn History oxycodone-acetaminophen 5 mg-325 1 tab PO Q6H PRN PRN pain 03/19/25 Unknown History mg tablet vitamin B complex-vitamin C-folic 1 tab PO DAILY 03/19 Unknown History acid 0.8 mg tablet (Nohelia-Luz) Allergy/AdvReac Type Severity Reaction Status Date / Time No Known Allergies Allergy Verified 03/19/25 07:46 Family History Father Heart disease Myocardial infarction Hypertension Brother Hypertension Sister Heart disease Myocardial infarction Surgical History History of hip replacement (~02/2024) History of cardiac catheterization History of esophagogastroduodenoscopy (EGD) Hx of surgical procedure History of aortic valve replacement (03/03/19) History of coronary artery stent placement (12/31/18) H/O coronary artery bypass surgery (09/18/02) History of tonsillectomy History of hernia repair Social History Smoking Status: Never smoker alcohol intake: never substance use type: does not use caffeine: No what type of physical activity do you participate in: walking frequency: daily Physical Exam Const alert, oriented x3 and no apparent distress General Appearance: cooperative HEENT normocephalic and head/scalp atraumatic Eyes PERRL and EOMs intact bilaterally Neck supple and No nodes Resp normal air movement and clear to auscultation bilaterally Cardio regular rate, regular rhythm and no murmurs GI soft to palpation, non-tender and non-distended Extremity Extremity Narrative: LUE swelling General Extremity: edema Skin no rashes or lesions noted Skin Narrative: L hip induration, mild soreness Neuro CN's II-XII intact bilaterally Lab / Micro Data Attestation: I reviewed the patient's lab results. 03/20/25 07:12 03/20/25 07:12 Labs: Laboratory Results - last 24 hr 03/20/25 07:12: WBC 6.9, RBC 3.18 L, Hgb 9.7 L, Hct 29.8 L, MCV 93.7, MCH 30.5, MCHC 32.6, RDW Std Deviation 46.8 H, RDW Coeff of [place] 13.7, Plt Count 268, MPV 9.1, Immature Gran % (Auto) 1.000 H, Neut % (Auto) 82.6 H, Lymph % (Auto) 9.1 L, [place] % (Auto) 5.3, Eos % (Auto) 1.6, Baso % (Auto) 0.4, Absolute Neuts (auto) 5.7, Absolute Lymphs (auto) 0.63 L, Nucleated RBC % 0, Sodium 137, Potassium 3.8, Chloride 97 L, Carbon Dioxide 29.5, Anion Gap 11, BUN 53 H, Creatinine 2.77 H, Estim Creat Clear Calc 24.01 L, Est GFR (MDRD) Non-Af 24 L, BUN/Creatinine Ratio 19.1, Glucose 93, Calcium 8.4 03/20/25 08:00: Synovial Source Right Hip, Synovial Color Yellow, Synovial Appearance Purulent, Synovial WBC 263.8000 H, Synovial RBC 0.240 H, Synovial Tot Cell Ct 266.5000 H, Synov Polynuclear WBCs 152.550, Synov Mononuclear WBCs 111.250, Synovial Neutrophils 98 H, Synovial Monocytes 2, Synovial Polynuclear % 57.8, Synovial Mononuclear % 42.2, Synovial Path Comment May follow Micro: Microbiology 03/20/25 08:00 Fluid - Synovial (joint) Gram Stain - Final Imaging Radiology Impression A/V Fistula Ultrasound 03/19/25 08:37 Interpretation Summary Patent left upper arm fistula with normal velocities and no stenosis, adequate flow volume and diameter. Ordering Physician: Karthik Ko Referring Physician: Yaw Singh Performed By: Di Appiah RVT Lower Extremity CT 03/19/25 13:18 IMPRESSION: No acute injury to the left hip. Reading [facility] Lower Extremity MRI 03/19/25 16:31 IMPRESSION: Redemonstration of the left hip arthroplasty. Currently noted multiple cystic fluid collections seen surrounding the hip prosthesis and possibly communicating with the joint seen along the anterior, lateral and posterior aspects, the largest component is seen anteriorly measures 8.1 x 7.4 cm along its maximum dimensions. Associated surrounding diffuse swelling and edema signal of the adjacent subcutaneous and intermuscular fat planes seen extending to the proximal thigh. Findings are highly suggestive of a periprosthetic infection with abscesses formation, recommend clinical correlation. Left gluteus minimus tendinitis. Reading [facility] [id number]
--- NOTE | 2025-03-20 15:48 | CHAPLAIN ---
Type of Pastoral Visit _x__ Initial Visit ___ Follow-up Visit ___ On-call Visit ___ General Patient Visit ___ Spiritual Assessment ___ Family Conference ___ Bereavement ___ Rapid Response ___ Code Blue ___ Other (describe below) Pastoral Care Referral From _x__ Patient ___ Family ___ Nurse ___ Physician ___ Assistant Spa Manager ___ Speech Language Assistant ___ Other (describe below) Sacrament/Intervention _x__ Active listening ___ Anointing ___ Rastafari ___ Bereavement ___ Communion ___ Lynne exploration ___ _x__ Life review _x_ Prayer ___ Reconciliation ___ Sacrament of Sick _x__ Supportive presence ___ Wedding ___ Other (describe below) Pastoral Comments
--- NOTE | 2025-03-20 16:19 | PN.RENAL_ITS ---
Subjective Subjective no new events Objective Data Objective Data Vital Signs: Vital Signs Temp Pulse Resp BP Pulse Ox O2 Del Method 98.4 F 74 18 108/60 99 Room Air 03/20/25 15:18 03/20/25 15:18 03/20/25 15:18 03/20/25 15:18 03/20/25 15:18 03/20/25 15:18 Oxygen Delivery Method Room Air Weight: 68 kg Body Mass Index (BMI) 22.1 Intake & Output: Intake and Output for Last 24 Hours 03/18/25 03/19/25 03/20/25 23:59 23:59 23:59 Intake Total 240 / 240 470 / 470 Output Total 400 / 400 1060 / 1060 Balance -160 / -160 -590 / -590 Lab / Micro Data 03/20/25 07:12 03/20/25 07:12 Labs: Laboratory Results - last 24 hr 03/20/25 07:12: WBC 6.9, RBC 3.18 L, Hgb 9.7 L, Hct 29.8 L, MCV 93.7, MCH 30.5, MCHC 32.6, RDW Std Deviation 46.8 H, RDW Coeff of Marcos 13.7, Plt Count 268, MPV 9.1, Immature Gran % (Auto) 1.000 H, Neut % (Auto) 82.6 H, Lymph % (Auto) 9.1 L, [place] % (Auto) 5.3, Eos % (Auto) 1.6, Baso % (Auto) 0.4, Absolute Neuts (auto) 5.7, Absolute Lymphs (auto) 0.63 L, Nucleated RBC % 0, Sodium 137, Potassium 3.8, Chloride 97 L, Carbon Dioxide 29.5, Anion Gap 11, BUN 53 H, Creatinine 2.77 H, Estim Creat Clear Calc 24.01 L, Est GFR (MDRD) Non-Af 24 L, BUN/Creatinine Ratio 19.1, Glucose 93, Calcium 8.4 03/20/25 08:00: Synovial Source Right Hip, Synovial Color Yellow, Synovial Appearance Purulent, Synovial WBC 263.8000 H, Synovial RBC 0.240 H, Synovial Tot Cell Ct 266.5000 H, Synov Polynuclear WBCs 152.550, Synov Mononuclear WBCs 111.250, Synovial Neutrophils 98 H, Synovial Monocytes 2, Synovial Polynuclear % 57.8, Synovial Mononuclear % 42.2, Synovial Path Comment Reviewed Micro: Microbiology 03/20/25 08:00 Fluid - Synovial (joint) Gram Stain - Final Radiography Diagnostic Testing: Radiology Impression Lower Extremity MRI 03/19/25 16:31 IMPRESSION: Redemonstration of the left hip arthroplasty. Currently noted multiple cystic fluid collections seen surrounding the hip prosthesis and possibly communicating with the joint seen along the anterior, lateral and posterior aspects, the largest component is seen anteriorly measures 8.1 x 7.4 cm along its maximum dimensions. Associated surrounding diffuse swelling and edema signal of the adjacent subcutaneous and intermuscular fat planes seen extending to the proximal thigh. Findings are highly suggestive of a periprosthetic infection with abscesses formation, recommend clinical correlation. Left gluteus minimus tendinitis. Reading Location: [place] [id number] Physical Exam Narrative Alert and oriented x 3, no apparent distress S1 S2, RRR Lung sounds clear Abdomen soft, nontender Left upper arm AV fistula positive for thrill and bruit. ++edema left arm/hand Assessment & Plan Assessment/Plan (1) ESRD on dialysis: (2) Left hip pain: PLAN: Plan 69-year-old male with past medical history for ESRD on HD TTS, last dialyzed Sunday, admitted for evaluation of left hip pain. There is no acute indication for renal placement therapy today, volume status appears near euvolemic, lung sounds clear, on room air and K+ and bicarb are normal. We will evaluate for dialysis tomorrow. Patient has been seen by vascular for swelling to left arm, okay to cannulate AV fistula per vascular. Further orders forthcoming as hospitalization evolves, thank you for allowing us to participate in the care of Mr. Landa. Assessment and plan reviewed with Dr. Greenberg. 03/20/25. UF today. did well. HD tomorrow if still here. adjusted EDW as outpatient
[2025-03-20] MEDS: Piperacil/Tazobactam 3.375 GM in 0.9% Normal Saline (50mL MB+) 50 ML IV (21:50)
[2025-03-20] MEDS: Heparin Injection (Vial) 5,000 UNIT/ML VIAL 5000 UNIT SC (22:00)
[2025-03-20] MEDS: Clotrimazole/Betamethasone 1 Tube 1 APPLIC TOPICAL (23:22)
[2025-03-21] VITALS (16 sets, daily range): BP systolic 96–127; BP diastolic 56–84; PULSE 67–94; RESP 16–18; TEMP 36.1–36.9; O2SAT 95–100; BMI 22.8
[2025-03-21] MEDS: 0.9% Saline Lock 10 ML Syringe IV ×3 (03:07→21:12)
[2025-03-21 06:53] LABS: Hematocrit 29.7 % (40-54); Hemoglobin 9.5 g/dL (13.0-16.5); Immature Granulocytes Count 0.070 X10^3/uL (0.0-0.0); Mean Corp Hgb Conc 32.0 g/dL (32-36); Mean Corpuscular Volume 93.7 fL (80-94); Mean Platelet Vol. 8.9 fl (6.2-12.0); NRBC Flagged by Analyzer 0 % (0-5); POSITIVE DIFFERENTIAL YES; Platelet Count 262 K/mm3 (150-450); RBC Distribution Width CV 13.7 % (11.6-14.6); RBC Distribution Width SD 46.8 fl (35.1-43.9); Red Blood Count 3.17 M/mm3 (4.6-6.2); White Blood Count 5.8 K/mm3 (4.4-11.0)
[2025-03-21 07:27] LABS: Anion Gap 12 (5-15); BUN 43 mg/dL (4-19); BUN/Creat Ratio 18.1 RATIO (10-20); Calcium,Total 8.1 mg/dL (7.6-11.0); Carbon Dioxide 26.9 mmol/L (21.0-32.0); Chloride 101 mmol/L (98-108); Estimated Creatinine Clearance 27.66 ml/min (50-250); Glucose 96 mg/dL (70-99); Potassium 3.8 mmol/L (3.3-5.1)
[2025-03-21 07:28] LABS: Prothrombin Time (Protime)PT. 17.1 SECONDS (11.7-14.9)
[2025-03-21 07:29] LABS: Partial Thromboplast Time 44.2 Seconds (24.1-36.2)
--- NOTE | 2025-03-21 10:52 | PCM.PN.HOSP ---
Reason for Visit Chief Complaint: left hip pain. Subjective Subjective Still with pain in left anterior hip with movement but at rest he feels fine. Objective Data Objective Data Vital Signs: Vital Signs Temp Pulse Resp BP Pulse Ox O2 Del Method 36.6 C 75 16 98/60 97 Room Air 03/21/25 07:48 03/21/25 07:48 03/21/25 07:48 03/21/25 07:48 03/21/25 07:48 03/21/25 07:48 Oxygen Delivery Method Room Air Weight: 68 kg Body Mass Index (BMI) 22.8 Intake & Output: Intake and Output for Last 24 Hours 03/19/25 03/20/25 03/21/25 23:59 23:59 23:59 Intake Total 240 / 240 670 / 670 256.25 / 256.25 Output Total 400 / 400 1790 / 1790 175 / 175 Balance -160 / -160 -1120 / -1120 81.25 / 81.25 Lab / Micro Data 03/21/25 06:38 03/21/25 06:38 Labs: Laboratory Results - last 24 hr 03/20/25 08:00: Synovial Path Comment Reviewed 03/21/25 06:38: WBC 5.8, RBC 3.17 L, Hgb 9.5 L, Hct 29.7 L, MCV 93.7, MCH 30.0, MCHC 32.0, RDW Std Deviation 46.8 H, RDW Coeff of Marcos 13.7, Plt Count 262, MPV 8.9, Immature Gran % (Auto) 1.200 H, Neut % (Auto) 83.4 H, Lymph % (Auto) 8.1 L, [place] % (Auto) 5.4, Eos % (Auto) 1.4, Baso % (Auto) 0.5, Absolute Neuts (auto) 4.8, Absolute Lymphs (auto) 0.47 L, Nucleated RBC % 0, PT 17.1 H, INR 1.4, APTT 44.2 H, Sodium 140, Potassium 3.8, Chloride 101, Carbon Dioxide 26.9, Anion Gap 12, BUN 43 H, Creatinine 2.39 H, Estim Creat Clear Calc 27.66 L, Est GFR (MDRD) Non-Af 28 L, BUN/Creatinine Ratio 18.1, Glucose 96, Calcium 8.1 Micro: Microbiology 03/19/25 08:24 Blood Culture (Wb) - Anticubital Right Blood Culture - Preliminary No growth in 48 hours. 03/20/25 08:00 Fluid - Synovial (joint) Gram Stain - Final Physical Exam Const alert Constitutional Narrative: Nontoxic. Afebrile. Resting comfortably in bed. Family at bedside. Assessment & Plan Assessment/Plan (1) Edema of left upper extremity: PLAN: Patient with fistulas left upper extremity. Underwent a recent fistulogram. Will do a duplex to see if there is any kind of DVT that may be contributing to this. Keep left upper extremity elevated. I discussed with the vascular surgery team but with the active infection, patient will need a fistula revision/branch ligation but with the active infection this will need to be done as outpatient. (2) Left hip pain: PLAN: Due to periprosthetic infection. Patient went aspiration and had copious amount of fluid aspirated, approximately 180 cc. Etiologies could be muscle strain/spasm/tear versus infection. Patient did have a hip replacement about a year ago but has been doing well up until this recent intervention. Patient did have an elevated ESR. CRP is currently pending. Unclear if this is infected but will check a CT and if that is unremarkable then may need to check an MRI. Patient's family member at bedside stated that it was red at 1 point but currently it is not red but just very tender. Pain control CT Left hip negative. MRI left hip: Multiple cystic fluid collections seen surrounding the hip prosthesis and possibly communicating with the joint along the anterior, lateral and posterior aspect. Largest component seen 8.1 x 7.4 cm. Associated surrounding diffuse swelling and edema. Findings suggestive of periprosthetic infection with abscess formation. Started antibiotics with pip-tazo and vancomycin. Infectious disease consultation for long-term antibiotics. Culture still pending (3) ESRD on dialysis: PLAN: Consult nephrology to continue with dialysis. Patient's normal dialysis day is today. Will consult nephrology but no urgent need for dialysis this time this can wait till tomorrow. PLAN: Plan PAD: Continue with aspirin and atorvastatin. GERD: Continue with PPI VTE prophylaxis with heparin CODE STATUS: Addressed with patient. Patient wishes to be full code Charges/Coding Visit Charges Inpatient E&M: 89766 Subs Hosp L1
[2025-03-21] MEDS: Fluticasone 0.05% 1 SPRAY NASAL.SRY 2 SPRAY NASAL (11:32)
[2025-03-21] MEDS: Piperacil/Tazobactam 3.375 GM in 0.9% Normal Saline (50mL MB+) 50 ML IV ×2 (11:34→21:12)
--- NOTE | 2025-03-21 15:09 | PRE.ANES_ITS ---
ASA Classification* ASA Classification ASA Classification: 3 and E Assessment & Plan Anesthesia* Anesthesia Assessment Anesthesia Assessment: Discussed sedation and/or anesthesia options, risks, benefits, and alternatives with patient/parents/legal guardian/POA. Questions invited. The patient/parents/legal guardian/POA seems to understand and agrees to proceed with anesthesia plan. Reviewed the physical assessment, medical history, allergy history and patient home medications list prior to surgery/procedure/anesthetic and documented any changes. Performed airway and anesthesia risk assessments. Anesthesia Type Anesthesia Type: General Anesthesia Focused Assessment* Temperature: 97.8 F Pulse Rate: 75 Blood Pressure: 98/60 Respiratory Rate: 16 Pulse Ox: 97 Airway Assessment Mouth opens: >3 cm Mallampati Score: II Labs Anesthesia Preop lab: CBC WBC, (4.4-11.0) 5.8 K/mm3 Today, 06:38 RBC, (4.6-6.2) 3.17 M/mm3 L Today, 06:38 Hgb, (13.0-16.5) 9.5 g/dL L Today, 06:38 Hct, (40-54) 29.7 % L Today, 06:38 Plt Count, (150-450) 262 K/mm3 Today, 06:38 CHEMISTRY Potassium, (3.3-5.1) 3.8 mmol/L Today, 06:38 Sodium, (133-145) 140 mmol/L Today, 06:38 Magnesium, (1.6-2.6) 2.2 mg/dL 02/15/24, 06:30 Phosphorus, (2.5-4.9) 4.9 mg/dL 02/15/24, 06:30 BUN, (4-19) 43 mg/dL H Today, 06:38 Creatinine, (0.70-1.20) 2.39 mg/dL H Today, 06:38 Glucose, (70-99) 96 mg/dL Today, 06:38 TSH, (0.358-3.740) 2.630 uIU/mL 02/15/24, 06:30 COAG PT, (11.7-14.9) 17.1 SECONDS H Today, 06:38 Pre-Assessment Diagnosis/Proposed Procedure Planned Operative Procedure(s): Left hip I and D Anesthesia History 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 When Was Last Pacemaker Check QUESTION #4 FULL TEXT: You/Your Family Experience fever (hyperthermia) with Anesthesia Last Oral Intake Last Oral intake: Last Oral Intake NPO since 00:00 03/21/25 03:08 Meds taken in AM with sips of Yes 03/21/25 03:08 water? Meds patient instructed to Tylenol 1000 mg 03/21/25 03/21/25 03:08 take am of surgery 0536 PONV PONV - technical cable jointer: PONV - technical cable jointer Female HX of Motion Sickness HX of N/V After Surgery Non-Smoker Duration of Surgery greater than 60 minutes Number of Risk Factors PONV Score Height & Weight Height & Weight: Anesthesia: Height & Weight Height 5 ft 8 in 03/21/25 03:08 Weight: 68 kg 03/21/25 03:08 Body Mass Index (BMI) 22.8 03/21/25 03:08 Respiratory Assessment Respiratory Assessment - technical cable jointer: Respiratory Tract Infection Hx - technical cable jointer Hx Respiratory Tract Infection No 03/20/25 21:12 STOP Sleep Apnea STOP Sleep Apnea - technical cable jointer: STOP Sleep Apnea - technical cable jointer Hx Hypertension Yes 03/21/25 11:00 Hx Sleep Apnea No 03/19/25 13:56 CPAP No 03/19/25 13:56 BIPAP No 03/19/25 13:56 Do you snore loudly (louder No 03/19/25 13:56 than talking or can be heard Do you often feel tired/ No 03/19/25 13:56 fatigued/ sleepy during daytime? Has anyone observed you stop No 03/19/25 13:56 breathing during sleep? STOP Results Negative 03/19/25 13:56 QUESTION #5 FULL TEXT : Do you snore loudly (louder than talking or can be heard through closed doors)? 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 Specify any problems Hx of Preganancy in last 3 N/A 03/19/25 13:56 Months Nurse Filling Out Transfusion RKARPER 03/19/25 13:56 & Questions: Date: 03/19/25 03/19/25 13:56 Time: 13:58 03/19/25 13:56 Patient unable to answer at this time (ie. confused, unrespo /Reproduction History /Reproductive History - technical cable jointer: /Reproductive Hx- technical cable jointer Hx Now No 03/20/25 21:12 Gestational Age (in weeks): EDC: Hx Hx Para Hx Section SAB No 03/20/25 21:12 Does the father of the baby or his family experience fever w Father of the baby Malignant Hypertension history comment Active Medications Active Medications: Current Medications Generic Name Dose Route Start Last Admin Trade Name [place] PRN Reason Stop Dose Admin Acetaminophen 1,000 mg 03/19/25 14:00 03/21/25 05:36 Acetaminophen 500 Mg Tablet PO 1,000 mg Q8 JIGNA Administration Ascorbic Acid 500 mg 03/20/25 10:00 03/21/25 10:14 Ascorbic Acid 500 Mg Tablet PO Not Given DAILY JIGNA Aspirin 81 mg 03/19/25 17:00 03/21/25 07:25 Aspirin 81 Mg Tab.Chew PO Not Given BIDCM [facility] Atorvastatin Calcium 80 mg 03/19/25 22:00 03/20/25 21:59 Atorvastatin Calcium 80 Mg Tablet PO 80 mg QHS JIGNA Administration Calamine/Phenol 1 applic 03/20/25 22:00 03/21/25 11:32 Menthol/Lanolin/Calamine/Znox 113 Gm Tube TOPICAL 1 applic BID JIGNA Administration Protocol Clotrimazole 1 applic 03/20/25 22:40 03/21/25 11:33 Clotrimazole/Betamethasone 1 Tube TOPICAL Not Given BID [facility] Protocol Ezetimibe 10 mg 03/20/25 10:00 03/21/25 10:14 Ezetimibe 10 Mg Tablet PO Not Given DAILY JIGNA Ferrous Sulfate 325 mg 03/20/25 12:00 03/21/25 11:36 Ferrous Sulfate 325 Mg Tablet PO Not Given LUNCH JIGNA Fluticasone Propionate 2 spray 03/19/25 22:00 03/21/25 11:32 Fluticasone 0.05% 1 [place] Nasal.Sry NASAL 2 spray BID JIGNA Administration Heparin Sodium (Porcine) 5,000 unit 03/19/25 22:00 03/21/25 10:13 Heparin Injection (Vial) 5,000 Unit/Ml Vial SC Not Given Q12 JIGNA Sodium Chloride 250 mls @ 15 mls/hr 03/19/25 13:43 03/21/25 01:55 IV 0 mls/hr .[id number] PRN Infusion Saline Flush Sodium Chloride 250 mls @ 15 mls/hr 03/19/25 13:43 IV .[id number] PRN Additional IVPB Infusion Vancomycin IV-PHARMACY TO DOSE 500 mls @ 250 mls/hr 03/20/25 08:20 1 each/ Sodium Chloride IV PRN PRN Rx to Dose Protocol Piperacillin Sod/Tazobactam 50 mls @ 12.5 mls/hr 03/20/25 22:00 03/21/25 11:34 Sod 3.375 gm/ Sodium Chloride IV 12.5 mls/hr Q12 JIGNA Administration Lidocaine 1 patch 03/20/25 10:00 03/21/25 10:13 Lidocaine 5% Patch TOPICAL Not Given DAILY [facility] Protocol Loratadine 10 mg 03/20/25 10:00 03/21/25 10:13 Loratadine 10 Mg Tablet PO Not Given DAILY JIGNA Metoprolol Tartrate 25 mg 03/19/25 22:00 03/21/25 10:13 Metoprolol Tartrate 25 Mg Tablet PO Not Given BID [facility] Protocol Montelukast Sodium 10 mg 03/19/25 22:00 03/20/25 21:58 Montelukast 10 Mg Tablet PO 10 mg QHS JIGNA Administration Multivit/Ca Carb/B Cmplx/FA/Prenat 1 cap 03/20/25 10:00 03/21/25 10:14 Folic Acid/Vitamin B Comp W-C 1 Capsule PO Not Given DAILY [facility] Nitroglycerin 0.4 mg 03/19/25 14:01 Nitroglycerin (Inpatient Use) 0.4 Mg Tab.Subl SL Q5M PRN CARDIAC/CHEST PAIN Olanzapine 2.5 mg 03/19/25 22:00 03/20/25 23:22 Olanzapine 2.5 Mg Tablet PO 2.5 mg QHS [facility] Administration Protocol Ondansetron HCl 4 mg 03/19/25 13:41 Ondansetron Odt 4 Mg Tablet PO Q8H PRN PRN nausea and vomiting Ondansetron HCl 4 mg 03/19/25 13:41 Ondansetron 4 Mg/2 Ml Vial IV Q8H PRN PRN NAUSEA/VOMITING Oxycodone HCl 5 mg 03/19/25 13:41 03/19/25 14:26 Oxycodone 5 Mg Tablet PO 5 mg Q4H PRN PRN Administration Pain Score 4-10 Pantoprazole Sodium 40 mg 03/19/25 22:00 03/21/25 10:14 Pantoprazole Sodium 40 Mg Tablet PO Not Given BID JIGNA Polyethylene Glycol 17 gm 03/19/25 14:02 Polyethylene Glycol 3350 17 Gm Packet PO DAILY PRN constipation Sodium Chloride 10 - 40 ml 03/19/25 13:43 03/21/25 11:34 0.9% Saline Lock 10 Ml Syringe IV 10 ml UD PRN Administration SALINE FLUSH PFSH Medical History Compression fracture of L5 vertebra Compression fracture of L4 vertebra Compression fracture of L3 vertebra Compression fracture of L2 Compression fracture of L1 lumbar vertebra Acute on chronic anemia 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 Knee pain Hx of sinus tachycardia Hematuria Pleural effusion Thrombocytopenia Wears glasses Cancer Cancer Pressure ulcer History of renal dialysis History of renal disease Injury of back History of GI bleed Gastric reflux History of stress test History of echocardiogram Cardiology follow-up encounter ESRD (end stage renal disease) on dialysis Acute exacerbation of chronic heart failure Adenocarcinoma of esophagus Non-smoker Esophageal carcinoma Atherosclerosis of coronary artery of [place] heart without angina 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 Essential (primary) hypertension Non-rheumatic aortic stenosis Hyperlipidemia Atherosclerotic heart disease of [place] coronary artery with other forms of angina pectoris Encounter for long-term current use of high risk medication abnormal stress test Exertional chest pain Home Medications ?Medication ?Instructions ?Recorded ?Last Taken ?Type atorvastatin 80 mg tablet 80 mg PO QHS CHOLESTEROL #90 tabs 05/15/22 12/24/23 Rx metoprolol tartrate 25 mg tablet 25 mg PO BID #0 tabs 10/25/23 06/30/24 05:30 Rx pantoprazole 40 mg tablet,delayed 40 mg PO BID #0 tabs 10/25/23 06/30/24 05:30 Rx release ferrous sulfate 325 mg (65 mg 325 mg PO DAILY #90 tabs 11/20/23 06/29/24 Rx iron) tablet polyethylene glycol 3350 17 17 g PO DAILY PRN constipa tion 12/04/23 Unknown History gram/dose oral powder (Miralax) ondansetron 4 mg disintegrating 4 mg PO Q8H PRN PRN na usea and 12/25/23 12/25/23 08:00 History tablet vomiting nitroglycerin 0.4 mg sublingual 0.4 mg sublingual PRN PRN angina 02/14/24 Unknown History tablet aspirin 81 mg chewable tablet 81 mg PO BID #0 tabs 01/3003/03/25 Rx acetaminophen 500 mg tablet 1,000 mg (2 x 500 mg) PO Q 8 pain 7 03/07/25 Unknown Rx days #42 tabs ascorbic acid (vitamin C) 500 mg 500 mg PO DAILY 03/19 Unknown History capsule ezetimibe 10 mg tablet 10 mg PO DAILY 03/19/25 Unkn own History fexofenadine 60 mg tablet 60 mg PO Q24H 03/19/25 Unkno wn History fluticasone propionate 50 2 spray intranasal BID 03/19 Unknown History mcg/actuation nasal spray,suspension montelukast 10 mg tablet 10 mg PO QHS 03/19/25 Unknow n History olanzapine 2.5 mg tablet 2.5 mg PO QHS 03/19/25 Unkno wn History oxycodone-acetaminophen 5 mg-325 1 tab PO Q6H PRN PRN pain 03/19/25 Unknown History mg tablet vitamin B complex-vitamin C-folic 1 tab PO DAILY 03/19 Unknown History acid 0.8 mg tablet (Nohelia-Luz) Allergy/AdvReac Type Severity Reaction Status Date / Time No Known Allergies Allergy Verified 03/19/25 07:46 Family History Father Heart disease Myocardial infarction Hypertension Brother Hypertension Sister Heart disease Myocardial infarction Surgical History History of hip replacement (~02/2024) History of cardiac catheterization History of esophagogastroduodenoscopy (EGD) Hx of surgical procedure History of aortic valve replacement (03/03/19) History of coronary artery stent placement (12/31/18) H/O coronary artery bypass surgery (09/18/02) History of tonsillectomy History of hernia repair Social History Smoking Status: Never smoker alcohol intake: never substance use type: does not use caffeine: No what type of physical activity do you participate in: walking frequency: daily Review of Systems (Anesthesia) ROS Narrative System reviewed and no additional complaints, except as documented.
[2025-03-21] MEDS: Lactated Ringers 1,000 ML 1000 ML IV (16:53)
[2025-03-21] MEDS: Vancomycin IV 1,000 MG/20 ML Vial 2000 MG OPERA.SITE (18:00)
--- NOTE | 2025-03-21 18:03 | PCM.OPRPT ---
Operative Report (Standard) Operative Information Date of Procedure: 03/21/25 Pre-Operative Diagnosis: Left hip periprosthetic joint infection Post-Operative Diagnosis: Left hip periprosthetic joint infection Surgery/Procedure Performed: Irrigation debridement subcutaneous fat fascia muscle and bone left hip joint with revision femoral head component inspection machine tender: Yes Metallurgical Laboratory Assistant: Camryn Callahan Tasks completed by assistant quality manager: Other (During the course of the procedure the physician associate professor of history (PE) played a vital role. Their intimate knowledge of my steps in the procedure aided in safe and expedient completion of the procedure. The PE played a vital rolls in positioning particularly in obtaining the appropriate positioning of the) Additional retail assistant manager?: No Type of Anesthesia: General RN Documented Start/Stop Times: Operation Date: 03/21/25 08:00 Case Time Into Pre-Op 03/21/25 15:57 Anesthesia Start 03/21/25 16:54 Into Room 03/21/25 16:54 Procedure Start 03/21/25 17:23 Procedure End 03/21/25 19:04 Procedure Start Time: 17:23 Procedure Stop Time: 19:04 Select all DRAINS/GRAFTS/IMPLANTS that apply: Prosthetic device Prosthetic device details: Aly Unitrax cobalt-chromium 50 mm femoral head with standard sleeve Special Medications: 2 g vancomycin powder placed in the wound Estimated Blood Loss: 200 mL Fluids Replaced: 500 mL Specimen collected: Yes Description of specimen(s) removed: 3 separate specimens were sent to microbiology Description of surgery: Procedure: On the date of procedure the patient's L hip was marked in the preoperative area. Patient was then taken back to the operating room where anesthesia assumed control of the C-spine and airway and administered anesthetic. Patient was transferred to the operating table and placed in the supine position. The hips were placed at the break of the bed and a sacral bump was placed. The L lower extremity was then prepped out in a sterile fashion using chlorhexidine while the surgeon scrubbed. The PA was vital in the positioning of the patient. Upon reentering the room the L lower extremity was draped in the standard orthopedic fashion and the incision was marked along the previous incision extending it proximally and distally 1 cm. A timeout was called and everyone agreed upon the side, the site, the procedure be performed, antibody given, and patient's identity. At this time incision was made through skin using the previous incision and extending it proximally and distally, subcutaneous tissue, and fat down to fascia. The fascia was then incised upon incising the fascia and slightly retracting the TFL laterally gross purulence was expressed from the wound. Suction was used to express the purulence trying to keep it from getting all over the operative field. At this point we carefully dissected proximally and distally exposing the joint and area of purulence. The purulence was completely evacuated as we performed a synovectomy. It did extend distally. We dissected using Bovie cautery removing the synovial lining of this area. We carefully dissected around the joint. Retractors placed over the anterior lip of the acetabulum and the hip was dislocated. Once the hip was dislocated retractor was placed over the femoral head and bone tamp was used to dissociate the femoral head from the Lam taper. Once we did this we were able to retract the femur out of the way and we were able to debride posterior synovium as well as more inferior synovium. Once we had completely debrided the joint we then directed our attention to the proximal femur. We made sure the trunnion was accessible and could be elevated out of the joint in order to place the new femoral head. Once this was completed 6 L of normal saline were irrigated throughout the wound under low-pressure lavage. Knowing the patient's leg lengths were appropriate and hip function well with the previous implants we elected to open the 50 mm femoral head with the sleeve associated with 0 mm neck. Traction was pulled and the hip was reduced with internal rotation. Once it was appropriately reduced and stability was checked. There was minimal shuck, equal leg lengths and appropriate stability with hyperextension and external rotation as well as with 90? flexion and internal rotation. Leg lengths using the contralateral side for comparison. Wound was copiously irrigated out with a dilute Betadine lavage followed by chlorhexidine lavage, the wound was then copiously irrigated with normal saline once more, and hemostasis was obtained. 2 g of vancomycin were placed in the wound and a distal drain was placed Closure was then done using #1 Vicryl runner to close the fascia. A 2-0 vicryl interuppted sutures were used to close the subcutaneous skin. 2-0 nylon sutures were used for final skin closure. A Prevena wound VAC incisional dressing was placed. Patient was awakened by anesthesia and transferred to the gurney. Patient was then transferred to the PACU for recovery. Postoperative plan: Patient will get 24 hours postop antibiotics. Patient will get in-house physical therapy and will be weight-bear as tolerated. Patient will follow up in office in 2 weeks for a wound check and x-rays. Due to patient's renal failure and limited mobility recommend we treat the patient is high risk postoperatively for VTE. Patient is currently on heparin would likely benefit to changing to Lovenox if appropriate based on renal function upon discharge. Would recommend 2 weeks of Lovenox then transition to baby aspirin twice a day for an additional 2 weeks. During the course of the procedure the physician associate professor of history (PE) played a vital role. Their intimate knowledge of my steps in the procedure aided in safe and expedient completion of the procedure. The PE played a vital rolls in positioning particularly in obtaining the appropriate positioning of the sacral bump. The PE was also vital in the retraction of soft tissues during the exposure and especially the femoral work as this is a vital part of the procedure to prevent complications and fractures. The PE was also vital and protecting soft tissues during times of bony cuts and reaming. He also played a vital role in closure with my direct supervision. The PE was also important during reduction and dislocation of the joint and trials intraoperatively. Surgical Findings: Gross purulence was was noted just deep to the fascia tracking down into the joint. Complications Complications: No Admit VTE Documentation VTE Present on Admission: No VTE Mechan Device Prophylaxis: SCD's and Thigh High YUNIOR Hose VTE Pharm Prophylaxis ordered?: Yes
--- NOTE | 2025-03-21 19:21 | PCM.POST.ANE ---
Anesthesia: Postop Eval I Current Vital Signs Temperature: 97 F Pulse Rate: 68 Blood Pressure: 96/63 Respiratory Rate: 16 Pulse Ox: 98 Assessment Airway patent: Yes Spontaneous unlabored respirations: Yes nausea: No Vomiting: No Anesthesia Complication: No Fluid Hydration Crystalloid volume administer (ml): 600 Total IV fluid infused: 600 Progress Note Anesthesia document: Postop Eval 1 completed: No
--- NOTE | 2025-03-21 19:22 | PCM.POSTANE2 ---
Anesthesia Postop Eval I Sum Postop Eval Completion status Anesthesia document: Postop Eval 1 completed: No Anesthesia Postop Eval I Summary Anesthesia Postop Eval I Summary: Anesthesia Postop Eval I: Assessment Summary Airway patent Yes 03/21/25 19:21 Spontaneous unlabored Yes 03/21/25 19:21 respirations Mental status nausea No 03/21/25 19:21 Vomiting No 03/21/25 19:21 Anesthesia Postop Eval I: Fluid Summary Crystalloid volume administer 600 03/21/25 19:21 (ml) Colloids volume administered ( ml) Blood Product volume administered (ml) Total IV fluid infused 600 03/21/25 19:21 Anesthesia Postop Eval I: Summary Notes Anesthesia Complication No 03/21/25 19:21 Anesthesia Complication Comment: Post-operative progress note Anesthesia: Postop Eval II Evaluation Mental status: Awake and Calm Pain Level: 5 nausea: No Vomiting: No
--- NOTE | 2025-03-21 19:30 | RAD_ITS ---
PROCEDURE: HIP MIN 2 VIEWS (PORTABLE) 03/21/2025 REASON FOR EXAM: POST OP TECHNIQUE: Procedure Code: RADH_P Modality: DX Procedure: HIP MIN 2 VIEWS (PORTABLE) Laterality: Left COMPARISON: March 19, 2025 FINDINGS: Bones: Decreased bone mineralization. No fracture seen. Joints: Left hip replacement. Soft tissues: Soft tissue swelling, gas in the soft tissues is expected. Other: Abdominal wall hernia repair. RAD/Hip Min 2 Views (Portable) IMPRESSION: Expected postoperative appearance left hip. Anatomic alignment following hip r eplacement. Reading Location: [id number]
[2025-03-21] MEDS: Heparin Injection (Vial) 5,000 UNIT/ML VIAL 5000 UNIT SC (21:14)
[2025-03-21] MEDS: Clotrimazole/Betamethasone 1 Tube 1 APPLIC TOPICAL (21:26)
[2025-03-22] VITALS (7 sets, daily range): BP systolic 96–108; BP diastolic 60–70; PULSE 61–83; RESP 16–18; TEMP 36.4–37.1; O2SAT 95–100
[2025-03-22] MEDS: 0.9% Saline Lock 10 ML Syringe IV ×2 (02:53→10:10)
[2025-03-22 04:01] LABS: Hematocrit 31.5 % (40-54); Hemoglobin 9.7 g/dL (13.0-16.5); Immature Granulocytes Count 0.090 X10^3/uL (0.0-0.0); Mean Corp Hgb Conc 30.8 g/dL (32-36); Mean Corpuscular Volume 97.8 fL (80-94); Mean Platelet Vol. 9.5 fl (6.2-12.0); NRBC Flagged by Analyzer 0 % (0-5); POSITIVE DIFFERENTIAL YES; Platelet Count 315 K/mm3 (150-450); RBC Distribution Width CV 13.8 % (11.6-14.6); RBC Distribution Width SD 49.1 fl (35.1-43.9); Red Blood Count 3.22 M/mm3 (4.6-6.2); White Blood Count 7.2 K/mm3 (4.4-11.0)
[2025-03-22 04:52] LABS: Anion Gap 16 (5-15); BUN 48 mg/dL (4-19); BUN/Creat Ratio 18.1 RATIO (10-20); Calcium,Total 8.2 mg/dL (7.6-11.0); Carbon Dioxide 23.3 mmol/L (21.0-32.0); Chloride 101 mmol/L (98-108); Estimated Creatinine Clearance 24.95 ml/min (50-250); Glucose 69 mg/dL (70-99); Potassium 4.1 mmol/L (3.3-5.1)
--- NOTE | 2025-03-22 08:08 | PCM.PN.ORT ---
Subjective Subjective Patient doing well. Much more comfortable. Able to move his left leg/hip with less pain actively and passively today. Stable overnight no acute events Objective Data Objective Data Vital Signs: Vital Signs Temp Pulse Resp BP Pulse Ox O2 Del Method 98.0 F 83 16 99/64 95 Room Air 03/22/25 06:31 03/22/25 06:31 03/22/25 06:31 03/22/25 06:31 03/22/25 08:00 03/22/25 08:00 Oxygen Delivery Method Room Air Weight: 149 lb 14.629 oz Body Mass Index (BMI) 22.8 Intake & Output: Intake and Output for Last 24 Hours 03/20/25 03/21/25 03/22/25 23:59 23:59 23:59 Intake Total 670 / 670 306.25 / 406.25 150 / 150 Output Total 1790 / 1790 955 / 955 325 / 325 Balance -1120 / -1120 -648.75 / -548.75 -175 / -175 Lab / Micro Data Attestation: I reviewed the patient's lab results. 03/22/25 03:05 03/22/25 03:05 Labs: Laboratory Results - last 24 hr 03/22/25 03:05: WBC 7.2, RBC 3.22 L, Hgb 9.7 L, Hct 31.5 L, MCV 97.8 H, MCH 30.1, MCHC 30.8 L, RDW Std Deviation 49.1 H, RDW Coeff of Marcos 13.8, Plt Count 315, MPV 9.5, Immature Gran % (Auto) 1.200 H, Neut % (Auto) 86.6 H, Lymph % (Auto) 7.1 L, [place] % (Auto) 4.4, Eos % (Auto) 0.3, Baso % (Auto) 0.4, Absolute Neuts (auto) 6.2, Absolute Lymphs (auto) 0.51 L, Nucleated RBC % 0, Sodium 140, Potassium 4.1, Chloride 101, Carbon Dioxide 23.3, Anion Gap 16 H, BUN 48 H, Creatinine 2.65 H, Estim Creat Clear Calc 24.95 L, Est GFR (MDRD) Non-Af 25 L, BUN/Creatinine Ratio 18.1, Glucose 69 L, Calcium 8.2 Micro: Microbiology 03/19/25 10:14 Blood Culture (Wb) - Right Hand Blood Culture - Preliminary No growth in 48 hours. 03/20/25 08:00 Fluid - Synovial (joint) Gram Stain - Final 03/20/25 08:00 Fluid - Synovial (joint) Body Fluid Culture - Preliminary Staphylococcus aureus 03/19/25 08:24 Blood Culture (Wb) - Anticubital Right Blood Culture - Preliminary No growth in 48 hours. Synovial fluid cultures confirm MRSA infection Radiography Diagnostic Testing: Radiology Impression Hip X-Ray 03/21/25 19:30 IMPRESSION: Expected postoperative appearance left hip. Anatomic alignment following hip replacement. Reading Location: [id number] Independently reviewed: Stable well aligned partial replacement. Physical Exam Const alert, oriented x3 and no apparent distress General Appearance: cooperative Extremity Extremity Narrative: Left lower extremity: Wound VAC dressing is clean dry and intact no fluid in the lines. No surrounding erythema. Drainage is minimal fluid at this time. Sensations intact to light touch saphenous, sural, superficial peroneal, deep peroneal, and tibial distributions Motors intact EHL, DF, PF calves are soft and supple Patient is able to actively flex his hip this morning and passively with significantly less pain than preoperatively Assessment & Plan Assessment/Plan (1) Left hip pain: PLAN: See above (2) ESRD on dialysis: PLAN: Per primary service (3) Left hip prosthetic joint infection: PLAN: Postop day 1 irrigation debridement femoral head exchange left hip 1. Pain control: Per primary service patient appears comfortable on current regimen 2. Therapy: Anterior precautions. Standard postop total protocol 3. DVT prophylaxis: Patient currently on heparin based on low level of mobility currently would recommend Lovenox dosed appropriately for renal failure for 2 weeks followed by baby aspirin for 2 weeks 81 mg twice a day 4. MRSA periprosthetic joint infection: Patient currently on vancomycin and Zosyn infectious disease is following will be in house again tomorrow. Likely can stop Zosyn. Patient will need PICC line and 6 weeks of IV antibiotics. Would significantly consider using chronic suppressive antibiotics as patient is high risk at this stage and next form of treatment is two-stage revision which based on patient's medical comorbidities would have significant morbidity associated with it. 5. Disposition: Patient stable and doing well. I would like to leave both the drain and the wound VAC on for 1 week. Patient has large space which we would like to keep from reaccumulating. He is at risk for developing a seroma. I have the patient follow-up in the office next Sunday with one of my physician assistants or myself for removal of the wound VAC and drain. As discussed above discharge DVT prophylaxis recommended renal dosing of Lovenox. If medicine service feels DOAC is appropriate with patient's renal failure patient may tolerate this better. If there are any further questions or concerns please call orthopedics. [facility] Office:
--- NOTE | 2025-03-22 08:25 | PCM.PN.HOSP ---
Reason for Visit Chief Complaint: left hip pain. Subjective Subjective Some discomfort in his right groin but overall feels better. Objective Data Objective Data Vital Signs: Vital Signs Temp Pulse Resp BP Pulse Ox O2 Del Method 36.7 C 77 18 96/66 97 Room Air 03/22/25 08:04 03/22/25 08:04 03/22/25 08:04 03/22/25 08:04 03/22/25 08:04 03/22/25 08:04 Oxygen Delivery Method Room Air Weight: 68 kg Body Mass Index (BMI) 22.8 Intake & Output: Intake and Output for Last 24 Hours 03/20/25 03/21/25 03/22/25 23:59 23:59 23:59 Intake Total 670 / 670 306.25 / 406.25 150 / 150 Output Total 1790 / 1790 955 / 955 325 / 325 Balance -1120 / -1120 -648.75 / -548.75 -175 / -175 Lab / Micro Data 03/22/25 03:05 03/22/25 03:05 Labs: Laboratory Results - last 24 hr 03/22/25 03:05: WBC 7.2, RBC 3.22 L, Hgb 9.7 L, Hct 31.5 L, MCV 97.8 H, MCH 30.1, MCHC 30.8 L, RDW Std Deviation 49.1 H, RDW Coeff of Marcos 13.8, Plt Count 315, MPV 9.5, Immature Gran % (Auto) 1.200 H, Neut % (Auto) 86.6 H, Lymph % (Auto) 7.1 L, [place] % (Auto) 4.4, Eos % (Auto) 0.3, Baso % (Auto) 0.4, Absolute Neuts (auto) 6.2, Absolute Lymphs (auto) 0.51 L, Nucleated RBC % 0, Sodium 140, Potassium 4.1, Chloride 101, Carbon Dioxide 23.3, Anion Gap 16 H, BUN 48 H, Creatinine 2.65 H, Estim Creat Clear Calc 24.95 L, Est GFR (MDRD) Non-Af 25 L, BUN/Creatinine Ratio 18.1, Glucose 69 L, Calcium 8.2 Micro: Microbiology 03/20/25 08:00 Fluid - Synovial (joint) Gram Stain - Final 03/20/25 08:00 Fluid - Synovial (joint) Body Fluid Culture - Preliminary Meth. resistant Staph. aureus 03/19/25 10:14 Blood Culture (Wb) - Right Hand Blood Culture - Preliminary No growth in 48 hours. 03/19/25 08:24 Blood Culture (Wb) - Anticubital Right Blood Culture - Preliminary No growth in 48 hours. Radiography Diagnostic Testing: Radiology Impression Hip X-Ray 03/21/25 19:30 IMPRESSION: Expected postoperative appearance left hip. Anatomic alignment following hip replacement. Reading Location: [facility] Physical Exam Const alert and no apparent distress HEENT head/scalp atraumatic and moist oral mucous membranes Extremity Extremity Narrative: Still with left upper extremity swelling but overall improved as there is no wrinkling of the skin. In his left groin he has a TOREY drain as well as a wound VAC in place. Neuro Sensorium / Orientation: awake and alert Psych affect normal Assessment & Plan Assessment/Plan (1) Left hip pain: PLAN: Due to periprosthetic infection. Patient went aspiration and had copious amount of fluid aspirated, approximately [address] Left hip negative. MRI left hip: Multiple cystic fluid collections seen surrounding the hip prosthesis and possibly communicating with the joint along the anterior, lateral and posterior aspect. Largest component seen 8.1 x 7.4 cm. Associated surrounding diffuse swelling and edema. Findings suggestive of periprosthetic infection with abscess formation. Started antibiotics with pip-tazo and vancomycin. Infectious disease consultation for long-term antibiotics. Culture from the showing MRSA. Surgical culture from the pending. Patient underwent I+D SQ fat fascia muscle and bone left hip joint with revision femoral head component on 03/21 (2) Edema of left upper extremity: PLAN: Improved patient with fistulas left upper extremity. Ultrasound showed patent left upper extremity fistula with normal velocities and no stenosis. Continue to keep left upper extremity elevated. I discussed with the vascular surgery team, patient will need a fistula revision/branch ligation but with the active infection this will need to be done as outpatient. (3) ESRD on dialysis: PLAN: Nephrology following for dialysis. Nephrology following. Last HD was on the . PLAN: Plan PAD: Continue with aspirin and atorvastatin. GERD: Continue with PPI VTE prophylaxis with heparin CODE STATUS: full code Charges/Coding Visit Charges Inpatient E&M: 48784 Subs Hosp L2
[2025-03-22] MEDS: Folic Acid/Vitamin B Comp W-C 1 Capsule 1 CAP PO (10:00)
[2025-03-22] MEDS: Lidocaine 5% Patch 1 PATCH TOPICAL (10:01)
[2025-03-22] MEDS: Clotrimazole/Betamethasone 1 Tube 1 APPLIC TOPICAL ×2 (10:01→20:12)
[2025-03-22] MEDS: Fluticasone 0.05% 1 SPRAY NASAL.SRY 2 SPRAY NASAL ×2 (10:01→20:11)
[2025-03-22] MEDS: Heparin Injection (Vial) 5,000 UNIT/ML VIAL 5000 UNIT SC ×2 (10:01→20:12)
[2025-03-22] MEDS: Ensure Surgery 237 ML LIQUID PO ×2 (10:02→11:58)
[2025-03-22] MEDS: Piperacil/Tazobactam 3.375 GM in 0.9% Normal Saline (50mL MB+) 50 ML IV ×2 (10:09→20:14)
--- NOTE | 2025-03-22 12:06 | NS ---
RN, Tasha, called this RD regarding pt's ONS with medpass. Pt is post op and receiving ensure surgery with medpass. However, pt dislikes ensure surgery. Will discontinue and order 120mL PO Nepro TID with medpass, due to pt being a dialysis patient. ONS were updated to match pt preferences and past medical history.
[2025-03-22] MEDS: 0.9% Normal Saline (250mL Bag) 250 ML 15 ML IV (20:15)
[2025-03-23] VITALS (14 sets, daily range): BP systolic 99–118; BP diastolic 52–84; PULSE 72–112; RESP 13–18; TEMP 36.5–36.9; O2SAT 95–100; BMI 22.6; BMI 22.3
[2025-03-23 06:33] LABS: Hematocrit 27.8 % (40-54); Hemoglobin 9.0 g/dL (13.0-16.5); Immature Granulocytes Count 0.110 X10^3/uL (0.0-0.0); Mean Corp Hgb Conc 32.4 g/dL (32-36); Mean Corpuscular Volume 94.6 fL (80-94); Mean Platelet Vol. 9.2 fl (6.2-12.0); NRBC Flagged by Analyzer 0 % (0-5); Platelet Count 294 K/mm3 (150-450); RBC Distribution Width CV 14.1 % (11.6-14.6); RBC Distribution Width SD 48.4 fl (35.1-43.9); Red Blood Count 2.94 M/mm3 (4.6-6.2); White Blood Count 5.6 K/mm3 (4.4-11.0)
[2025-03-23 07:02] LABS: Anion Gap 11 (5-15); BUN 54 mg/dL (4-19); BUN/Creat Ratio 17.2 RATIO (10-20); Calcium,Total 8.3 mg/dL (7.6-11.0); Carbon Dioxide 26.0 mmol/L (21.0-32.0); Chloride 103 mmol/L (98-108); Estimated Creatinine Clearance 21.00 ml/min (50-250); Glucose 100 mg/dL (70-99); Potassium 4.2 mmol/L (3.3-5.1)
[2025-03-23] MEDS: 0.9% Normal Saline 1,000 ML IV.SOLN. 1000 ML OPERA.SITE (08:28)
[2025-03-23] MEDS: PureFlow B 2K Dialysis Soln 1 BAG 6 BAG PF (08:29)
--- NOTE | 2025-03-23 08:47 | WOUNDNOTE ---
wound photo: sacrum
[2025-03-23] MEDS: Folic Acid/Vitamin B Comp W-C 1 Capsule 1 CAP PO (10:07)
[2025-03-23] MEDS: Clotrimazole/Betamethasone 1 Tube 1 APPLIC TOPICAL ×2 (10:07→20:18)
[2025-03-23] MEDS: Lidocaine 5% Patch 1 PATCH TOPICAL (10:07)
[2025-03-23] MEDS: Heparin Injection (Vial) 5,000 UNIT/ML VIAL 5000 UNIT SC ×2 (10:08→20:17)
[2025-03-23] MEDS: Piperacil/Tazobactam 3.375 GM in 0.9% Normal Saline (50mL MB+) 50 ML IV (12:01)
--- NOTE | 2025-03-23 13:36 | PCM.PN.ID ---
Physical Exam Narrative Feeling better, pain controlled, no fever, no n/v/d. Const alert and no apparent distress General Appearance: cooperative Resp normal air movement and clear to auscultation bilaterally Cardio regular rate and regular rhythm GI soft to palpation, non-tender and non-distended Skin no rashes or lesions noted ID ID: Route of nutrition/ use of supplements: [] Nutritional Intake: [] IV Site: [] Cantrell Catheter: [] Assessment & Plan Assessment/Plan (1) Left hip prosthetic joint infection: PLAN: Cxs MRSA, taken to OR for I&D by Dr. Marc on 03/31/25. Cont vanc, stop zosyn, add rifampin for biofilm penetration. Is ESRD TTS via LUE fistula. Will order 6 weeks iv vanc 500mg with dialysis sessions after discharge, stop date 05/02/25 along with po rifampin and weekly labs. ID followup in 3 weeks. D/w human services case manager, wrote rx. Will follow
--- NOTE | 2025-03-23 13:48 | PCM.PN.HOSP ---
Reason for Visit Chief Complaint: left hip pain. Subjective Subjective Pt evaluated today while on HD, he reports feeling fair, pain is manageable at this time while laying in bed. Reports rash on his feet and left hand. The feet since Sunday and he noticed the hand more recently. Per report the feet are better than they were. Unclear etiology, not on R hand or anywhere else on body. initially had some itching but after a salve was placed on it it was no longer bothersome Objective Data Objective Data Vital Signs: Vital Signs Temp Pulse Resp BP Pulse Ox O2 Del Method 97.7 F L 76 14 113/78 100 Room Air 03/23/25 11:39 03/23/25 12:01 03/23/25 11:39 03/23/25 11:39 03/23/25 11:39 03/23/25 11:39 Oxygen Delivery Method Room Air Weight: 66.9 kg Body Mass Index (BMI) 22.3 Intake & Output: Intake and Output for Last 24 Hours 03/21/25 03/22/25 03/23/25 23:59 23:59 23:59 Intake Total 306.25 / 406.25 1500 / 1800 838.88 / 838.88 Output Total 955 / 955 675 / 675 1050 / 1050 Balance -648.75 / -548.75 825 / 1125 -211.12 / -211.12 Lab / Micro Data 03/23/25 05:47 03/23/25 05:47 Labs: Laboratory Results - last 24 hr 03/23/25 05:47: WBC 5.6, RBC 2.94 L, Hgb 9.0 L, Hct 27.8 L, MCV 94.6 H, MCH 30.6, MCHC 32.4 D, RDW Std Deviation 48.4 H, RDW Coeff of Marcos 14.1, Plt Count 294, MPV 9.2, Immature Gran % (Auto) 2.000 H, Neut % (Auto) 77.0 H, Lymph % (Auto) 11.4 L, [place] % (Auto) 7.7, Eos % (Auto) 1.2, Baso % (Auto) 0.7, Absolute Neuts (auto) 4.3, Absolute Lymphs (auto) 0.64 L, Nucleated RBC % 0, Sodium 140, Potassium 4.2, Chloride 103, Carbon Dioxide 26.0, Anion Gap 11, BUN 54 H, Creatinine 3.13 H, Estim Creat Clear Calc 21.00 L, Est GFR (MDRD) Non-Af 21 L, BUN/Creatinine Ratio 17.2, Glucose 100 H, Calcium 8.3 Micro: Microbiology 03/21/25 Unknown Incision/Surgical Site Gram Stain - Final 03/21/25 Unknown Incision/Surgical Site Wound Culture - Preliminary Staphylococcus aureus 03/21/25 Unknown Incision/Surgical Site Gram Stain - Final 03/21/25 Unknown Incision/Surgical Site Wound Culture - Preliminary Meth. resistant Staph. aureus 03/21/25 Unknown Incision/Surgical Site Gram Stain - Final 03/21/25 Unknown Incision/Surgical Site Wound Culture - Preliminary Meth. resistant Staph. aureus 03/20/25 08:00 Fluid - Synovial (joint) Gram Stain - Final 03/20/25 08:00 Fluid - Synovial (joint) Body Fluid Culture - Preliminary Meth. resistant Staph. aureus 03/20/25 08:00 Fluid - Synovial (joint) Anaerobic Culture - Preliminary 03/19/25 10:14 Blood Culture (Wb) - Right Hand Blood Culture - Preliminary No growth in 48 hours. 03/19/25 08:24 Blood Culture (Wb) - Anticubital Right Blood Culture - Preliminary No growth in 48 hours. Physical Exam Narrative General: Alert, oriented, no apparent distress HEENT: Atraumatic, normocephalic Eyes: Anicteric, normal conjunctiva, extraocular movements grossly intact Neck: Supple Respiratory: Clear to auscultation bilaterally, normal respiratory effort Cardiovascular: Regular rate GI: Soft, nontender, nondistended Extremities: No edema Musculoskeletal: Moving all extremities Neuro: No overt focal neurological deficits Skin: Does have patchy red rash on bottoms of feet and a little bit on left wrist Psych: Cooperative Assessment & Plan Assessment/Plan (1) Left hip prosthetic joint infection: PLAN: Plan # MRSA left hip periprosthetic joint infection - Presented with left hip pain and elevated ESR and CRP - He had MRI of left hip which showed multiple cystic fluid collections around the hip prosthesis and possibly communicating with the joint seen along the anterior, lateral, and posterior aspects with largest component 8.1 x 7.4 cm surrounded with diffuse swelling and edema suggestive of periprosthetic infection - He underwent bedside aspiration and subsequently irrigation and debridement of left hip joint with revision of femoral head component with Dr. Marc 03/21/2025 - ID consulted for assistance with antibiotic management - Patient worked with physical therapy and prefers to go home with home health - Patient is supposed to have drain and wound VAC on for 1 week and follow-up next Sunday in the Ortho office - Plan will be to DC on Lovenox for 2 weeks and subsequently aspirin - ID continued Vanco and added rifampin with plans for 6 weeks of IV vancomycin with dialysis - Will need weekly labs and to follow-up with ID in 3 weeks - Likely able to DC home in next 1 to 2 days once safe discharge plan home in place/coordinated # Left upper extremity edema - Evaluated by vascular - Likely needs fistula revision/branch ligation but this is not emergent and fistula is functioning well - Will need follow-up outpatient #Extremity rash - On feet and a little bit on left wrist, per nursing staff this is much better than it was on the feet - Patient denies any itching or pain -No other allergy symptoms at this time - Will assess again in the a.m. to see if this continue to resolve #ESRD on HD -Consult nephrology - Underwent dialysis today and tolerated this well # History of coronary artery disease and aortic valve replacement - With previous bypass and stenting - Continue home medications #GERD -Continue PPI #DVT ppx: Presently on heparin subcu Paloma Pryor MD Charges/Coding Visit Charges Inpatient E&M: 77948 Subs Hosp L2
--- NOTE | 2025-03-23 14:21 | CASEMGMT ---
Addendum entered by Naomie Baca 03/23/25 16:16: MICHELE HILLMAN into pt room, pt states he spoke with his family and SNF is not an option. He states he has had HHC in the past and feels that it would be beneficial to him. Requested dc restaurant assistant provide list. Pt aware to choose his top 3 choices and MICHELE HILLMAN will check back with him. Disussed dc'ing on lovenox, pt states his son in law can administer this to him. He states he has already discussed it. Pt denies further needs at this time. Addendum entered by Naomie Baca 03/23/25 15:31: MICHELE HILLMAN into pt room, pt is aware that [facility] is able to administer his IV atb upon dc. He states therapy has not been in yet today. MICHELE HILLMAN to follow. Original Note: MICHELE HILLMAN received IV atb rx from ID. MICHELE HILLMAN into pt room to discuss dc planning, ID came in during discussion. Plan for IV atb dosing at dialysis. Pt states his told him they could not do this. MICHELE HILLMAN made him aware that this MICHELE HILLMAN will call and confirm that they can administer. Pt is undecided if he feels he can go home with HHC or can go to OP therapy or needs SNF. Pt has not worked with therapy yet today. MICHELE HILLMAN and pt to reconvene after therapy to discuss. 1315- TC to [facility], spoke with Neisha, she states they can administer medication for pt. Faxed rx to her per request to [phone].
[2025-03-23] MEDS: 0.9% Normal Saline (250mL Bag) 250 ML 15 ML IV (14:45)
--- NOTE | 2025-03-23 16:20 | CASEMGMT ---
Discharge Planning A list of?HH providers including quality and resource use data and consistent with the patient's preferred geographic region, medical needs, and insurance network was created in [facility] Guide.? This list was provided to the patient. Tata Nieto, Discharge Planning Asst.
[2025-03-23] MEDS: Vancomycin HCl 500 MG in 0.9% Normal Saline (100mL Bag) 100 ML 100 MG IV (16:23)
--- NOTE | 2025-03-23 16:58 | PN.RENAL_ITS ---
Subjective Subjective no new events Objective Data Objective Data Vital Signs: Vital Signs Temp Pulse Resp BP Pulse Ox O2 Del Method 98.4 F 85 18 99/66 97 Room Air 03/23/25 14:45 03/23/25 14:45 03/23/25 14:45 03/23/25 14:45 03/23/25 14:45 03/23/25 14:45 Oxygen Delivery Method Room Air Weight: 66.9 kg Body Mass Index (BMI) 22.3 Intake & Output: Intake and Output for Last 24 Hours 03/21/25 03/22/25 03/23/25 23:59 23:59 23:59 Intake Total 306.25 / 406.25 1500 / 1800 851.88 / 851.88 Output Total 955 / 955 675 / 675 1225 / 1225 Balance -648.75 / -548.75 825 / 1125 -373.12 / -373.12 Lab / Micro Data 03/23/25 05:47 03/23/25 05:47 Labs: Laboratory Results - last 24 hr 03/23/25 05:47: WBC 5.6, RBC 2.94 L, Hgb 9.0 L, Hct 27.8 L, MCV 94.6 H, MCH 30.6, MCHC 32.4 D, RDW Std Deviation 48.4 H, RDW Coeff of Marcos 14.1, Plt Count 294, MPV 9.2, Immature Gran % (Auto) 2.000 H, Neut % (Auto) 77.0 H, Lymph % (Auto) 11.4 L, Reeves % (Auto) 7.7, Eos % (Auto) 1.2, Baso % (Auto) 0.7, Absolute Neuts (auto) 4.3, Absolute Lymphs (auto) 0.64 L, Nucleated RBC % 0, Sodium 140, Potassium 4.2, Chloride 103, Carbon Dioxide 26.0, Anion Gap 11, BUN 54 H, C reatinine 3.13 H, Estim Creat Clear Calc 21.00 L, Est GFR (MDRD) Non-Af 21 L, BUN/Creatinine Ratio 17.2, Glucose 100 H, Calcium 8.3 Micro: Microbiology 03/21/25 Unknown Incision/Surgical Site Gram Stain - Final 03/21/25 Unknown Incision/Surgical Site Wound Culture - Preliminary Staphylococcus aureus 03/21/25 Unknown Incision/Surgical Site Gram Stain - Final 03/21/25 Unknown Incision/Surgical Site Wound Culture - Preliminary Meth. resistant Staph. aureus 03/21/25 Unknown Incision/Surgical Site Gram Stain - Final 03/21/25 Unknown Incision/Surgical Site Wound Culture - Preliminary Meth. resistant Staph. aureus 03/20/25 08:00 Fluid - Synovial (joint) Gram Stain - Final 03/20/25 08:00 Fluid - Synovial (joint) Body Fluid Culture - Preliminary Meth. resistant Staph. aureus 03/20/25 08:00 Fluid - Synovial (joint) Anaerobic Culture - Preliminary 03/19/25 10:14 Blood Culture (Wb) - Right Hand Blood Culture - Preliminary No growth in 48 hours. 03/19/25 08:24 Blood Culture (Wb) - Anticubital Right Blood Culture - Preliminary No growth in 48 hours. Physical Exam Narrative Alert and oriented x 3, no apparent distress S1 S2, RRR Lung sounds clear Abdomen soft, nontender Left upper arm AV fistula positive for thrill and bruit. ++edema left arm/hand Assessment & Plan Assessment/Plan (1) ESRD on dialysis: (2) Left hip pain: PLAN: Plan 69-year-old male with past medical history for ESRD on HD TTS, last dialyzed Sunday, admitted for evaluation of left hip pain. There is no acute indication for renal placement therapy today, volume status appears near euvolemic, lung sounds clear, on room air and K+ and bicarb are normal. We will evaluate for dialysis tomorrow. Patient has been seen by vascular for swelling to left arm, okay to cannulate AV fistula per vascular. Further orders forthcoming as hospitalization evolves, thank you for allowing us to participate in the care of Mr. Landa. Assessment and plan reviewed with Dr. Greenberg. 03/23/25. HD as per schedule. chart reviewed
[2025-03-23] MEDS: Fluticasone 0.05% 1 SPRAY NASAL.SRY 2 SPRAY NASAL (20:17)
[2025-03-24] VITALS (10 sets, daily range): BP systolic 98–144; BP diastolic 48–97; PULSE 72–105; RESP 14–18; TEMP 36.6–37; O2SAT 95–98; BMI 22.4; BMI 22.6
[2025-03-24 06:20] LABS: Hematocrit 26.2 % (40-54); Hemoglobin 8.2 g/dL (13.0-16.5); Mean Corp Hgb Conc 31.3 g/dL (32-36); Mean Corpuscular Volume 96.3 fL (80-94); Mean Platelet Vol. 9.1 fl (6.2-12.0); Platelet Count 269 K/mm3 (150-450); RBC Distribution Width CV 14.3 % (11.6-14.6); RBC Distribution Width SD 49.5 fl (35.1-43.9); Red Blood Count 2.72 M/mm3 (4.6-6.2); White Blood Count 6.1 K/mm3 (4.4-11.0)
[2025-03-24 06:37] LABS: Vancomycin, Random Level 16.6 ug/mL (0.0-15.0)
[2025-03-24 06:44] LABS: Anion Gap 8 (5-15); BUN 37 mg/dL (4-19); BUN/Creat Ratio 14.8 RATIO (10-20); Calcium,Total 8.0 mg/dL (7.6-11.0); Carbon Dioxide 26.4 mmol/L (21.0-32.0); Chloride 105 mmol/L (98-108); Estimated Creatinine Clearance 26.09 ml/min (50-250); Glucose 102 mg/dL (70-99); Potassium 4.0 mmol/L (3.3-5.1)
--- NOTE | 2025-03-24 06:44 | PCM.RX.CS ---
Consult Antibiotic Management Pharmacy has been consulted to manage selected antibiotic: Vancomycin Type of Intervention Type of Consult: Follow-up Suspected Infection Suspected Infection: Other (hip infection) Prior Doses of Antibiotics Prior Doses of Antibiotics Received/Current Regimen: Vancomycin 500 mg IV x 1 after HD on 03/23/25 Labs Labs: Sodium 140 mmol/L (133-145) 03/24/25 06:08 Potassium 4.0 mmol/L (3.3-5.1) 03/24/25 06:08 Chloride 105 mmol/L (98-108) 03/24/25 06:08 Carbon Dioxide 26.4 mmol/L (21.0-32.0) 03/24/25 06:08 Anion Gap 8 (5-15) 03/24/25 06:08 BUN 37 mg/dL (4-19) H 03/24/25 06:08 Creatinine 2.50 mg/dL (0.70-1.20) H 03/24/25 06:08 Est GFR (MDRD) Non-Af 27 (>60) L 03/24/25 06:08 BUN/Creatinine Ratio 14.8 RATIO (10-20) 03/24/25 06:08 Glucose 102 mg/dL (70-99) H 03/24/25 06:08 Random Vancomycin 16.6 ug/mL (0.0-15.0) H 03/24/25 06:08 Microbiology Microbiology: Microbiology 03/21/25 Unknown Incision/Surgical Site Gram Stain - Final 03/21/25 Unknown Incision/Surgical Site Wound Culture - Preliminary Staphylococcus aureus 03/21/25 Unknown Incision/Surgical Site Gram Stain - Final 03/21/25 Unknown Incision/Surgical Site Wound Culture - Preliminary Meth. resistant Staph. aureus 03/21/25 Unknown Incision/Surgical Site Gram Stain - Final 03/21/25 Unknown Incision/Surgical Site Wound Culture - Preliminary Meth. resistant Staph. aureus 03/20/25 08:00 Fluid - Synovial (joint) Gram Stain - Final 03/20/25 08:00 Fluid - Synovial (joint) Body Fluid Culture - Preliminary Meth. resistant Staph. aureus 03/20/25 08:00 Fluid - Synovial (joint) Anaerobic Culture - Preliminary 03/19/25 10:14 Blood Culture (Wb) - Right Hand Blood Culture - Preliminary No growth in 48 hours. 03/19/25 08:24 Blood Culture (Wb) - Anticubital Right Blood Culture - Preliminary No growth in 48 hours. Dosing Weight Weight used for dosin kg Estimated Creatinine Clearance Estimated Creatinine Clearance: ESRD on HD Goal Trough Goal Trough: 15-20 mcg/mL Pharmacy Plan for Drug Dosing Pharmacy Plan for Drug Dosing: Vancomycin random level = 16.6, give 500 mg after HD that is planned for today, then a random level prior to HD on 03/26/25 Pharmacy Service will continue to monitor and adjust dosing as required. Follow-Up Labs Follow-Up Labs: Trough: Vancomycin Date/Time Labs Ordered Labs to be done on [date and time ordered]: 03/26/25
[2025-03-24] MEDS: 0.9% Normal Saline 1,000 ML IV.SOLN. 1000 ML OPERA.SITE (09:41)
[2025-03-24] MEDS: 0.9% Normal Saline (250mL Bag) 250 ML 15 ML IV (09:41)
[2025-03-24] MEDS: PureFlow B 2K Dialysis Soln 1 BAG 6 BAG PF (09:42)
--- NOTE | 2025-03-24 11:21 | CASEMGMT ---
Addendum entered by Tata Nieto 03/24/25 12:19: [facility] has accepted. MICHELE HILLMAN updated. Original Note: Discharge Planning Pt choices for are as follows; 1) [facility] 2) [facility], [facility], and [facility]. MICHELE HILLMAN updated. Referral sent via [facility] to [facility]. Tata Nieto DC Planning Asst.
[2025-03-24] MEDS: Lidocaine 5% Patch 1 PATCH TOPICAL (11:46)
[2025-03-24] MEDS: Folic Acid/Vitamin B Comp W-C 1 Capsule 1 CAP PO (11:46)
[2025-03-24] MEDS: Heparin Injection (Vial) 5,000 UNIT/ML VIAL 5000 UNIT SC (11:48)
[2025-03-24] MEDS: Clotrimazole/Betamethasone 1 Tube 1 APPLIC TOPICAL (11:48)
--- NOTE | 2025-03-24 11:55 | PCM.PN.REN ---
Subjective Subjective No new complaints today. Events noted. Had rash, he says somewhat better. Breathing is okay. Objective Data Objective Data Vital Signs: Vital Signs Temp Pulse Resp BP Pulse Ox O2 Del Method 97.8 F 79 14 144/71 H 96 Room Air 03/24/25 08:35 03/24/25 11:47 03/24/25 08:35 03/24/25 11:00 03/24/25 08:35 03/24/25 08:35 Oxygen Delivery Method Room Air Weight: 67.1 kg Body Mass Index (BMI) 22.4 Intake & Output: Intake and Output for Last 24 Hours 03/22/25 03/23/25 03/24/25 23:59 23:59 23:59 Intake Total 1500 / 1800 1061.88 / 1061.88 550 / 550 Output Total 675 / 675 1225 / 1225 125 / 125 Balance 825 / 1125 -163.12 / -163.12 425 / 425 Lab / Micro Data 03/24/25 06:08 03/24/25 06:08 Labs: Laboratory Results - last 24 hr 03/24/25 06:08: WBC 6.1, RBC 2.72 L, Hgb 8.2 L, Hct 26.2 L, MCV 96.3 H, MCH 30.1, MCHC 31.3 L, RDW Std Deviation 49.5 H, RDW Coeff of Marcos 14.3, Plt Count 269, MPV 9.1, Sodium 140, Potassium 4.0, Chloride 105, Carbon Dioxide 26.4, Anion Gap 8, BUN 37 H, Creatinine 2.50 H, Estim Creat Clear Calc 26.09 L, Est GFR (MDRD) Non-Af 27 L, BUN/Creatinine Ratio 14.8, Glucose 102 H, Calcium 8.0, Random Vancomycin 16.6 H Micro: Microbiology 03/19/25 10:14 Blood Culture (Wb) - Right Hand Blood Culture - Final No growth in 5 days. 03/21/25 Unknown Incision/Surgical Site Gram Stain - Final 03/21/25 Unknown Incision/Surgical Site Wound Culture - Preliminary Meth. resistant Staph. aureus 03/21/25 Unknown Incision/Surgical Site Anaerobic Culture - Preliminary Checking for anaerobes, further studies to follow. 03/21/25 Unknown Incision/Surgical Site Gram Stain - Final 03/21/25 Unknown Incision/Surgical Site Wound Culture - Preliminary Meth. resistant Staph. aureus 03/21/25 Unknown Incision/Surgical Site Anaerobic Culture - Preliminary Checking for anaerobes, further studies to follow. 03/21/25 Unknown Incision/Surgical Site Gram Stain - Final 03/21/25 Unknown Incision/Surgical Site Wound Culture - Final Meth. resistant Staph. aureus 03/21/25 Unknown Incision/Surgical Site Anaerobic Culture - Preliminary No growth in 48 hours. 03/20/25 08:00 Fluid - Synovial (joint) Gram Stain - Final 03/20/25 08:00 Fluid - Synovial (joint) Body Fluid Culture - Preliminary Meth. resistant Staph. aureus 03/20/25 08:00 Fluid - Synovial (joint) Anaerobic Culture - Final No anaerobic bacteria isolated. 03/19/25 08:24 Blood Culture (Wb) - Anticubital Right Blood Culture - Final No growth in 5 days. Physical Exam Narrative Alert and oriented x 3, no apparent distress S1 S2, RRR Lung sounds clear Abdomen soft, nontender Left upper arm AV fistula positive for thrill and bruit. ++edema left arm/hand Assessment & Plan Assessment/Plan (1) ESRD on dialysis: (2) Left hip pain: PLAN: Plan 69-year-old male with past medical history for ESRD on HD TTS, last dialyzed Sunday, admitted for evaluation of left hip pain. There is no acute indication for renal placement therapy today, volume status appears near euvolemic, lung sounds clear, on room air and K+ and bicarb are normal. We will evaluate for dialysis tomorrow. Patient has been seen by vascular for swelling to left arm, okay to cannulate AV fistula per vascular. Further orders forthcoming as hospitalization evolves, thank you for allowing us to participate in the care of Mr. Landa. Assessment and plan reviewed with Dr. Greenberg. 03/24/2025. Seen on dialysis today, overall doing well. Volume status is pretty good. ID note reviewed, Ortho note reviewed. Extensive periprosthetic infection, status postdrainage. Will need antibiotic for at least 6 weeks. Discharge plan ongoing. Please confirm with dialysis unit before discharge about ability to your vancomycin. He says he is planning to go to [facility] in [place].
--- NOTE | 2025-03-24 12:25 | PCM.PN.SRG ---
Subjective Subjective I saw Mr. Landa this morning at bedside. He relates improved L hip pain since surgery. There was some bleeding around the needles during dialysis on Sunday that necessitated shorter session, but yesterday he reports there were no issues and dialysis was completed for full session length. Otherwise, LUE edema remains stable. Objective Data Objective Data Vital Signs: Vital Signs Temp Pulse Resp BP Pulse Ox O2 Del Method 97.8 F 79 16 119/69 95 Room Air 03/24/25 11:31 03/24/25 11:47 03/24/25 11:31 03/24/25 11:31 03/24/25 11:31 03/24/25 11:31 Oxygen Delivery Method Room Air Weight: 149 lb 11.102 oz Body Mass Index (BMI) 22.6 Intake & Output: Intake and Output for Last 24 Hours 03/22/25 03/23/25 03/24/25 23:59 23:59 23:59 Intake Total 1500 / 1800 1061.88 / 1061.88 550 / 550 Output Total 675 / 675 1225 / 1225 1315 / 1315 Balance 825 / 1125 -163.12 / -163.12 -765 / -765 Lab / Micro Data 03/24/25 06:08 03/24/25 06:08 Labs: Laboratory Results - last 24 hr 03/24/25 06:08: WBC 6.1, RBC 2.72 L, Hgb 8.2 L, Hct 26.2 L, MCV 96.3 H, MCH 30.1, MCHC 31.3 L, RDW Std Deviation 49.5 H, RDW Coeff of Marcos 14.3, Plt Count 269, MPV 9.1, Sodium 140, Potassium 4.0, Chloride 105, Carbon Dioxide 26.4, Anion Gap 8, BUN 37 H, Creatinine 2.50 H, Estim Creat Clear Calc 26.09 L, Est GFR (MDRD) Non-Af 27 L, BUN/Creatinine Ratio 14.8, Glucose 102 H, Calcium 8.0, Random Vancomycin 16.6 H Micro: Microbiology 03/19/25 10:14 Blood Culture (Wb) - Right Hand Blood Culture - Final No growth in 5 days. 03/21/25 Unknown Incision/Surgical Site Gram Stain - Final 03/21/25 Unknown Incision/Surgical Site Wound Culture - Preliminary Meth. resistant Staph. aureus 03/21/25 Unknown Incision/Surgical Site Anaerobic Culture - Preliminary Checking for anaerobes, further studies to follow. 03/21/25 Unknown Incision/Surgical Site Gram Stain - Final 03/21/25 Unknown Incision/Surgical Site Wound Culture - Preliminary Meth. resistant Staph. aureus 03/21/25 Unknown Incision/Surgical Site Anaerobic Culture - Preliminary Checking for anaerobes, further studies to follow. 03/21/25 Unknown Incision/Surgical Site Gram Stain - Final 03/21/25 Unknown Incision/Surgical Site Wound Culture - Final Meth. resistant Staph. aureus 03/21/25 Unknown Incision/Surgical Site Anaerobic Culture - Preliminary No growth in 48 hours. 03/20/25 08:00 Fluid - Synovial (joint) Gram Stain - Final 03/20/25 08:00 Fluid - Synovial (joint) Body Fluid Culture - Preliminary Meth. resistant Staph. aureus 03/20/25 08:00 Fluid - Synovial (joint) Anaerobic Culture - Final No anaerobic bacteria isolated. 03/19/25 08:24 Blood Culture (Wb) - Anticubital Right Blood Culture - Final No growth in 5 days. Physical Exam Const alert, oriented x3 and no apparent distress HEENT normocephalic and head/scalp atraumatic Eyes General Eye: normal appearance of both eyes Neck General: normal visual inspection Resp normal respiratory effort Cardio Rate: regular rate Extremity Extremity Narrative: LUE AVF with good thrill; stable LUE edema, primarily in the forearm; palpable L radial pulse Neuro Speech: speech normal Psych mental status grossly normal Appearance: grossly normal Assessment & Plan Assessment/Plan (1) Arteriovenous fistula of left upper extremity: PLAN: Plan Will plan for outpatient follow-up in the office in 2-4 weeks to coordinate outpatient fistula revision/branch ligation with timing pending completed antibiotic therapy for L periprosthetic hip infection. OK for continued use of fistula, he is advised to contact the office sooner if complications other than swelling arise with respect to his fistula. Charges/Coding Visit Charges Inpatient E&M: 15011 [facility] Hosp L1
--- NOTE | 2025-03-24 12:30 | CASEMGMT ---
Addendum entered by Naomie Baca 03/24/25 15:09: TC to Ele Álvarez, made aware that pt will dc this date, requested returned call. MICHELE CM into pt room, pt sitting up in chair. Pt is aware that [facility] has accepted him and will call him to set up a time to come to the home. Pt is aware he will not need lovenox at dc and that the IV atb will be done at dialysis. Pt is aware that the vac and drain will stay in place until he follows up with ortho. Pt states there is now drainage in hemovac and there has not been to this point. Updated pt nurse. Pt denies any further homegoing needs at this time. Original Note: Pt was accepted by [facility]. Pt will dc this date. TC to [facility] to confirm that they have all needed information for administering pt IV atb, left vm requesting returned call.
--- NOTE | 2025-03-24 13:14 | DCINST_ITS ---
Discharge Instructions DC O2, CPAP, BIPAP needs Home O2 Discharge instructions: No Dressing / Incision Discharge Activity: - (Per orthopedic doctor: Anterior precautions. Standard postop total protocol) Follow Up Care Test Results: Test results from this visit will be discussed in further detail at your follow- up appointment, if applicable. Discharge Plan Admission Admit Date/Time: 03/20/25 11:56 Primary Reason for Your Visit: left hip pain Attending Provider: Paloma Pryor Primary Care Provider: Yaw Singh Consulting Providers: Gaudencio Greenberg; Nikita Jackson; Jerod Marc; Scout Mnan; Nikita Erazo Instructions Patient Instructions: ED Fall Prevention Additional Instructions / Restrictions: DISCHARGE INSTRUCTIONS PLEASE READ *Please take this with you to your next doctors appointment* -Please follow postoperative hip precautions as per your orthopedic surgeon -Please follow-up in Dr. Marc's office upon discharge. Please call their office to schedule an appointment to be seen the clinic on Sunday. Your wound VAC and drain will likely be removed at that time -You will be discharged on 81mg twice daily for 4 weeks - You will be discharged on vancomycin and rifampin with a stop date of 05/02/2025 - You will need to follow-up with Dr. Mann with infectious disease in 3 weeks, please call the office upon discharge to schedule your hospital follow-up appointment - If the rash on your feet worsens or does not continue to improve please discuss with your primary care physician on further steps in management - Please follow-up with vascular surgery on discharge regarding the swelling in your arm - Continue dialysis as previously scheduled -Please call your primary care provider's office upon discharge to schedule a hospital follow up within 1 week. -For any concerning signs or symptoms please call 911 or proceed to the nearest emergency department Discharge Orders/Prescriptions Prescriptions: New rifampin 300 mg Capsule 300 mg PO BID 90 Days Qty: 180 1RF vancomycin 500 mg recon soln 500 mg IV .see below 40 Days Qty: 18 0RF Rx Instructions: IV vanc 500mg dosed TuThSat with dialysis. Stop date 05/02/25. Dx: L hip PJI. Weekly bmp, cbc, LFT, vanc trough, and esr. Fax to [phone]. Continued atorvastatin 80 mg tablet 80 mg PO QHS Qty: 90 3RF Patient Comments: per PCP med list end date is 04/05/25 ferrous sulfate 325 mg (65 mg iron) tablet 325 mg PO DAILY Qty: 90 3RF metoprolol tartrate 25 mg Tablet 25 mg PO BID Qty: 0 0RF pantoprazole 40 mg Tablet,Delayed Release (Dr/Ec) 40 mg PO BID Qty: 0 0RF polyethylene glycol 3350 [Miralax] 17 gram/dose powder 17 g PO DAILY PRN (Reason: constipation) ondansetron 4 mg tablet,disintegrating 4 mg PO Q8H PRN PRN (Reason: nausea and vomiting) fexofenadine 60 mg tablet 60 mg PO Q24H ezetimibe 10 mg tablet 10 mg PO DAILY Patient Comments: per PCP med list fluticasone propionate 50 mcg/actuation spray,suspension 2 spray INTRANASAL BID olanzapine 2.5 mg tablet 2.5 mg PO QHS oxycodone-acetaminophen 5-325 mg tablet 1 tab PO Q6H PRN PRN (Reason: pain) Patient Comments: per pcp list montelukast 10 mg tablet 10 mg PO QHS Nohelia-Luz 0.8 mg tablet 1 tab PO DAILY ascorbic acid (vitamin C) 500 mg capsule 500 mg PO DAILY aspirin 81 mg Tablet,Chewable 81 mg PO BID 30 Days Qty: 60 0RF Rx Instructions: Take for 30 days postop and then okay to discontinue nitroglycerin 0.4 mg tablet, sublingual 0.4 mg sublingual PRN PRN (Reason: angina) acetaminophen 500 mg tablet 1,000 mg PO Q8 7 Days Qty: 42 0RF Rx Instructions: Take Tylenol this way for 5 to 7 days postoperatively and then okay to go back and use as needed Referrals / Follow Up: Nikita Jackson MD [Med Staff - Active Staff, Vascular Surgery] Yaw Singh MD [Primary Care Provider, Family Practice] - Within 1 Week Scout Mann MD [Med Staff - Active Staff, Infectious Disease] - See Referral Note Referral Note: Follow up in 3 weeks. Please call the office to schedule a hospital follow up appointment Jerod Marc MD [Med Staff - Active Staff, Orthopedics] - 03/27/25 Referral Note: Please call the office on discharge to schedule follow-up appointment for Sunday Disposition Disposition (needs filled in before D/C Order can be placed): Home Health Service
--- NOTE | 2025-03-24 14:04 | PCM.DC.SUM ---
Providers Date of Admission: 03/20/25 Date of Discharge: 03/24/25 Primary Care Physician: Dr. Yaw Singh MD Consultations 03/19/25 13:41 Consult: Nephrology Routine Consulting Provider: Gaudencio Greenberg Reason for Consult: dialysis EMERGENT Consult: No MD Notified: Yes Date Notified: 03/19/25 Time Notified: 13:10 Method of Notification: Text Consult: Vascular Surgery Routine Consulting Provider: Nikita Jackson Reason for Consult: left arm edema EMERGENT Consult: No MD Notified: Yes Date Notified: 03/19/25 Time Notified: 13:10 Method of Notification: Answering Service 03/19/25 16:14 Consult: Orthopedics Routine Consulting Provider: Jerod Marc Reason for Consult: left hip pain EMERGENT Consult: No Notified: Yes Date Notified: 03/19/25 Time Notified: 16:15 Method of Notification: Verbal 03/20/25 08:20 Consult: Infectious Disease Routine Consulting Provider: Scout Mann Reason for Consult: hip joint infection EMERGENT Consult: No MD Notified: Yes Date Notified: 03/20/25 Time Notified: 08:20 Method of Notification: Text 03/21/25 03:15 Consult: Onc/Wound/brush washer Routine Comment: Reason for Consult:: Pressure ulcer on coccyx Reason For Visit: LEFT HIP PAIN Diagnosis Discharge Diagnosis (1) Left hip prosthetic joint infection: Status: Acute Code(s): T84.52XA - Infection and inflammatory reaction due to internal left hip prosthesis, initial encounter (2) Arteriovenous fistula of left upper extremity: Status: Acute Code(s): I77.0 - Arteriovenous fistula, acquired Plan # MRSA left hip periprosthetic joint infection # Left upper extremity edema likely due to fistula branch #Extremity rash- improving #ESRD on HD # History of coronary artery disease and aortic valve replacement #GERD Medications at Discharge Home Medications atorvastatin 80 mg tablet 80 mg PO QHS CHOLESTEROL #90 tabs 05/15/22 metoprolol tartrate 25 mg tablet 25 mg PO BID #0 tabs 10/25/23 pantoprazole 40 mg tablet,delayed release 40 mg PO BID #0 tabs 10/25/23 ferrous sulfate 325 mg (65 mg iron) tablet 325 mg PO DAILY #90 tabs 11/20/23 polyethylene glycol 3350 17 gram/dose oral powder (Miralax) 17 g PO DAILY PRN constipation 12/04/23 ondansetron 4 mg disintegrating tablet 4 mg PO Q8H PRN PRN nausea and vomiting 12/25/23 nitroglycerin 0.4 mg sublingual tablet 0.4 mg sublingual PRN PRN angina 02/14/24 acetaminophen 500 mg tablet 1,000 mg (2 x 500 mg) PO Q8 pain 7 days #42 tabs 03/07/25 ascorbic acid (vitamin C) 500 mg capsule 500 mg PO DAILY 03/19/25 ezetimibe 10 mg tablet 10 mg PO DAILY 03/19/25 fexofenadine 60 mg tablet 60 mg PO Q24H 03/19/25 fluticasone propionate 50 mcg/actuation nasal spray,suspension 2 spray intranasal BID 03/19/25 montelukast 10 mg tablet 10 mg PO QHS 03/19/25 olanzapine 2.5 mg tablet 2.5 mg PO QHS 03/19/25 oxycodone-acetaminophen 5 mg-325 mg tablet 1 tab PO Q6H PRN PRN pain 03/19/25 vitamin B complex-vitamin C-folic acid 0.8 mg tablet (Nohelia-Luz) 1 tab PO DAILY 03/19/25 rifampin 300 mg capsule 300 mg PO BID 90 days #180 caps 03/23/25 vancomycin 500 mg intravenous solution 500 mg IV .see below 40 days #18 ea 03/23/25 aspirin 81 mg chewable tablet 81 mg PO BID 30 days #60 tabs 03/24/25 Hospital Course Operations - (Irrigation debridement subcutaneous fat fascia muscle and bone left hip joint with revision femoral head component 03/21/[address] Marc) Summary of Care Provided Minutes Spent on Discharge: 40 Hospital Course: 69-year-old male history of end-stage renal disease on hemodialysis, TAVR, coronary artery disease presented [facility] ED 03/19/2025 due to left anterior thigh pain. He had been admitted the month before but he had reported that the pain started after doing leg lifts and did have some relief with the lidocaine patch and seem to be musculoskeletal in nature and ultimately was discharged home. He came back however due to continued pain and, despite normal white blood cell count and hip and pelvis x-ray, ultimately was found to have elevated ESR and CRP. Ortho consulted and he had MRI of left hip which showed multiple cystic fluid collections around the hip prosthesis and possibly communicating with the joint seen along the anterior, lateral, and posterior aspects with largest component 8.1 x 7.4 cm surrounded with diffuse swelling and edema suggestive of periprosthetic infection. He underwent bedside aspiration and subsequently irrigation and debridement of left hip joint with revision of femoral head component with Dr. Marc 03/21/2025 and cultures ultimately grew MRSA. He was followed by infectious disease who continued him on vancomycin and added rifampin with plans for 6 weeks of IV vancomycin with dialysis. During patient's hospitalization he also was noted to have increased left upper extremity edema from baseline and was evaluated by vascular, it was suspected he needed a fistula revision/branch ligation but not emergently as fistula is functioning well and patient has an active infection. Outpatient follow-up recommended. Additionally patient developed a rash around his feet and a little bit on his left wrist a couple of days after admission of unclear trigger but that were improving independently. Patient was not having pain or itching with this and given improvement seems reasonable to follow-up outpatient with PCP to make sure it continues to improve. On day of discharge patient overall feeling better and has no new or acute complaints. Patient comfortable discharge home with home health. Of note it was recommended by Ortho that patient be discharged on Lovenox or a DOAC. Given patient's on dialysis Lovenox is suboptimal, had planned for DOAC however given he is on rifampin both Eliquis and Xarelto are contraindicated. Given limited options called Ortho?it was advised that if they are heard no other options as mentioned that patient can be discharged on 81 mg of aspirin twice daily for 4 weeks and he will see him in the office. Discharge instructions as follows: -Please follow postoperative hip precautions as per your orthopedic surgeon -Please follow-up in Dr. Marc's office upon discharge. Please call their office to schedule an appointment to be seen the clinic on Sunday. Your wound VAC and drain will likely be removed at that time -You will be discharged on 81mg twice daily for 4 weeks - You will be discharged on vancomycin and rifampin with a stop date of 05/02/2025 - You will need to follow-up with Dr. Mann with infectious disease in 3 weeks, please call the office upon discharge to schedule your hospital follow-up appointment - If the rash on your feet worsens or does not continue to improve please discuss with your primary care physician on further steps in management - Please follow-up with vascular surgery on discharge regarding the swelling in your arm - Continue dialysis as previously scheduled -Please call your primary care provider's office upon discharge to schedule a hospital follow up within 1 week. -For any concerning signs or symptoms please call 911 or proceed to the nearest emergency department Physical Exam Narrative General: Alert, oriented, no apparent distress HEENT: Atraumatic, normocephalic Eyes: Anicteric, normal conjunctiva, extraocular movements grossly intact Neck: Supple Respiratory: Clear to auscultation bilaterally, normal respiratory effort Cardiovascular: Regular rate GI: Soft, nontender, nondistended Extremities: No edema Musculoskeletal: Moving all extremities Neuro: No overt focal neurological deficits Skin: Does have patchy red rash on bottoms of feet and a little bit on left wrist that seem somewhat improved from yesterday Psych: Cooperative Weight / BMI Weight Weight: 67.9 kg Body Mass Index (BMI) 22.6 ABG / Lab / Microbiology Data 03/24/25 06:08 03/24/25 06:08 Laboratory: Laboratory Results - last 24 hr 03/24/25 06:08: WBC 6.1, RBC 2.72 L, Hgb 8.2 L, Hct 26.2 L, MCV 96.3 H, MCH 30.1, MCHC 31.3 L, RDW Std Deviation 49.5 H, RDW Coeff of Marcos 14.3, Plt Count 269, MPV 9.1, Sodium 140, Potassium 4.0, Chloride 105, Carbon Dioxide 26.4, Anion Gap 8, BUN 37 H, Creatinine 2.50 H, Estim Creat Clear Calc 26.09 L, Est GFR (MDRD) Non-Af 27 L, BUN/Creatinine Ratio 14.8, Glucose 102 H, Calcium 8.0, Random Vancomycin 16.6 H Microbiology: Microbiology 03/19/25 10:14 Blood Culture (Wb) - Right Hand Blood Culture - Final No growth in 5 days. 03/21/25 Unknown Incision/Surgical Site Gram Stain - Final 03/21/25 Unknown Incision/Surgical Site Wound Culture - Preliminary Meth. resistant Staph. aureus 03/21/25 Unknown Incision/Surgical Site Anaerobic Culture - Preliminary Checking for anaerobes, further studies to follow. 03/21/25 Unknown Incision/Surgical Site Gram Stain - Final 03/21/25 Unknown Incision/Surgical Site Wound Culture - Preliminary Meth. resistant Staph. aureus 03/21/25 Unknown Incision/Surgical Site Anaerobic Culture - Preliminary Checking for anaerobes, further studies to follow. 03/21/25 Unknown Incision/Surgical Site Gram Stain - Final 03/21/25 Unknown Incision/Surgical Site Wound Culture - Final Meth. resistant Staph. aureus 03/21/25 Unknown Incision/Surgical Site Anaerobic Culture - Preliminary No growth in 48 hours. 03/20/25 08:00 Fluid - Synovial (joint) Gram Stain - Final 03/20/25 08:00 Fluid - Synovial (joint) Body Fluid Culture - Preliminary Meth. resistant Staph. aureus 03/20/25 08:00 Fluid - Synovial (joint) Anaerobic Culture - Final No anaerobic bacteria isolated. 03/19/25 08:24 Blood Culture (Wb) - Anticubital Right Blood Culture - Final No growth in 5 days. D/C Instructions DC O2, CPAP, BIPAP Needs Home O2 Discharge instructions: No Meaningful Use Info Meaningful Use Meaningful Use Diagnoses (Choose all that apply): None applicable Discharge Plan Admission Admit Date/Time: 03/20/25 11:56 Primary Reason for Your Visit: left hip pain Attending Provider: Paloma Pryor Primary Care Provider: Yaw Singh Consulting Providers: Gaudencio Greenberg; Nikita Jackson; Jerod Marc; Scout Mann; Nikita Erazo Instructions Patient Instructions: ED Fall Prevention Additional Instructions / Restrictions: DISCHARGE INSTRUCTIONS PLEASE READ *Please take this with you to your next doctors appointment* -Please follow postoperative hip precautions as per your orthopedic surgeon -Please follow-up in Dr. Marc's office upon discharge. Please call their office to schedule an appointment to be seen the clinic on Sunday. Your wound VAC and drain will likely be removed at that time -You will be discharged on 81mg twice daily for 4 weeks - You will be discharged on vancomycin and rifampin with a stop date of 05/02/2025 - You will need to follow-up with Dr. Mann with infectious disease in 3 weeks, please call the office upon discharge to schedule your hospital follow-up appointment - If the rash on your feet worsens or does not continue to improve please discuss with your primary care physician on further steps in management - Please follow-up with vascular surgery on discharge regarding the swelling in your arm - Continue dialysis as previously scheduled -Please call your primary care provider's office upon discharge to schedule a hospital follow up within 1 week. -For any concerning signs or symptoms please call 911 or proceed to the nearest emergency department Discharge Orders/Prescriptions Prescriptions: New rifampin 300 mg Capsule 300 mg PO BID 90 Days Qty: 180 1RF vancomycin 500 mg recon soln 500 mg IV .see below 40 Days Qty: 18 0RF Rx Instructions: IV vanc 500mg dosed TuThSat with dialysis. Stop date 05/02/25. Dx: L hip PJI. Weekly bmp, cbc, LFT, vanc trough, and esr. Fax to [phone]. Continued atorvastatin 80 mg tablet 80 mg PO QHS Qty: 90 3RF Patient Comments: per PCP med list end date is 04/05/25 ferrous sulfate 325 mg (65 mg iron) tablet 325 mg PO DAILY Qty: 90 3RF metoprolol tartrate 25 mg Tablet 25 mg PO BID Qty: 0 0RF pantoprazole 40 mg Tablet,Delayed Release (Dr/Ec) 40 mg PO BID Qty: 0 0RF polyethylene glycol 3350 [Miralax] 17 gram/dose powder 17 g PO DAILY PRN (Reason: constipation) ondansetron 4 mg tablet,disintegrating 4 mg PO Q8H PRN PRN (Reason: nausea and vomiting) fexofenadine 60 mg tablet 60 mg PO Q24H ezetimibe 10 mg tablet 10 mg PO DAILY Patient Comments: per PCP med list fluticasone propionate 50 mcg/actuation spray,suspension 2 spray INTRANASAL BID olanzapine 2.5 mg tablet 2.5 mg PO QHS oxycodone-acetaminophen 5-325 mg tablet 1 tab PO Q6H PRN PRN (Reason: pain) Patient Comments: per pcp list montelukast 10 mg tablet 10 mg PO QHS Nohelia-Luz 0.8 mg tablet 1 tab PO DAILY ascorbic acid (vitamin C) 500 mg capsule 500 mg PO DAILY aspirin 81 mg Tablet,Chewable 81 mg PO BID 30 Days Qty: 60 0RF Rx Instructions: Take for 30 days postop and then okay to discontinue nitroglycerin 0.4 mg tablet, sublingual 0.4 mg sublingual PRN PRN (Reason: angina) acetaminophen 500 mg tablet 1,000 mg PO Q8 7 Days Qty: 42 0RF Rx Instructions: Take Tylenol this way for 5 to 7 days postoperatively and then okay to go back and use as needed Referrals / Follow Up: Nikita Jackson MD [Med Staff - Active Staff, Vascular Surgery] Yaw Singh MD [Primary Care Provider, [facility]] - Within 1 Week Scout Mann MD [Med Staff - Active Staff, Infectious Disease] - See Referral Note Referral Note: Follow up in 3 weeks. Please call the office to schedule a hospital follow up appointment Jerod Marc MD [Med Staff - Active Staff, Orthopedics] - 03/27/25 Referral Note: Please call the office on discharge to schedule follow-up appointment for Sunday Disposition Disposition (needs filled in before D/C Order can be placed): Home Health Service Charges/Coding Visit Charges Inpatient E&M: 78337 Disch Hosp >30min
--- NOTE | 2025-03-24 14:49 | PHA.DC_ITS ---
Pharmacy [place] Med Reconciliation Pharmacy Service has performed discharge medication reconciliation for this patient. Patient in contact precautions, did not application counselor. The patient's discharge medication list was reviewed for discrepancies and discrepancies were resolved. Medications at Discharge Home Medications atorvastatin 80 mg tablet 80 mg PO QHS CHOLESTEROL #90 tabs 05/15/22 metoprolol tartrate 25 mg tablet 25 mg PO BID #0 tabs 10/25/23 pantoprazole 40 mg tablet,delayed release 40 mg PO BID #0 tabs 10/25/23 ferrous sulfate 325 mg (65 mg iron) tablet 325 mg PO DAILY #90 tabs 11/20/23 polyethylene glycol 3350 17 gram/dose oral powder (Miralax) 17 g PO DAILY PRN constipation 12/04/23 ondansetron 4 mg disintegrating tablet 4 mg PO Q8H PRN PRN nausea and vomiting 12/25/23 nitroglycerin 0.4 mg sublingual tablet 0.4 mg sublingual PRN PRN angina 02/14/24 acetaminophen 500 mg tablet 1,000 mg (2 x 500 mg) PO Q8 pain 7 days #42 tabs 03/07/25 ascorbic acid (vitamin C) 500 mg capsule 500 mg PO DAILY 03/19/25 ezetimibe 10 mg tablet 10 mg PO DAILY 03/19/25 fexofenadine 60 mg tablet 60 mg PO Q24H 03/19/25 fluticasone propionate 50 mcg/actuation nasal spray,suspension 2 spray intranasal BID 03/19/25 montelukast 10 mg tablet 10 mg PO QHS 03/19/25 olanzapine 2.5 mg tablet 2.5 mg PO QHS 03/19/25 oxycodone-acetaminophen 5 mg-325 mg tablet 1 tab PO Q6H PRN PRN pain 03/19/25 vitamin B complex-vitamin C-folic acid 0.8 mg tablet (Nohelia-Luz) 1 tab PO DAILY 03/19/25 rifampin 300 mg capsule 300 mg PO BID 90 days #180 caps 03/23/25 vancomycin 500 mg intravenous solution 500 mg IV .see below 40 days #18 ea 03/23/25 aspirin 81 mg chewable tablet 81 mg PO BID 30 days #60 tabs 03/24/25
--- NOTE | 2025-03-24 15:21 | CASEMGMT ---
Discharge Planning DC Summary & Instructions sent via [facility] to [facility]. Tata Nieto DC Planning Asst.
== END 2025-03-24 17:05 | disposition home health service (06) | DRG 466 ==
LOC: ED 12:30 → MS3 13:16
PROVIDERS: Anesthesiology; Internal Medicine Infectious Disease; Specialist; Emergency Provider Emergency Medicine; PCP Family Medicine; Visit Provider Internal Medicine
PROC: 0SPS0JZ Removal of Synthetic Substitute from Left Hip Joint, Femoral Surface, Open Approach (ICD-10-PCS; principal; 2025-03-21 07:35)
DX: T84.52XA Infection and inflammatory reaction due to internal left hip prosthesis, initial encounter (principal); N18.6 End stage renal disease; I12.0 Hypertensive chronic kidney disease with stage 5 chronic kidney disease or end stage renal disease; Z95.2 Presence of prosthetic heart valve; K21.9 Gastro-esophageal reflux disease without esophagitis; Z99.2 Dependence on renal dialysis; I25.10 Atherosclerotic heart disease of native coronary artery without angina pectoris; X58.XXXA Exposure to other specified factors, initial encounter; B95.62 Methicillin resistant Staphylococcus aureus infection as the cause of diseases classified elsewhere; R21 Rash and other nonspecific skin eruption; R60.0 Localized edema; Z96.642 Presence of left artificial hip joint; Z95.5 Presence of coronary angioplasty implant and graft; Z79.82 Long term (current) use of aspirin; Z79.899 Other long term (current) drug therapy
CPT/HCPCS: 36415; 71046; 73090; 73502; 73700; 73721; 80048; 80202; 81001; 83605; 85025; 85027; 85610; 85652; 85730; 86140; 87015; 87040; 87070; 87075; 87077; 87102; 87116; 87149; 87176; 87186; 87205; 87206; 89050; 89051; 90937; 93990; 94668; 97162; 97165; 97530; 97535; 99252; 99285; C1776; A4216; G0257; G0463; J2405

== ENCOUNTER 2025-03-30 09:41 | Day surgery (SDC) | payer MEDICARE, OTHER, SELFPAY ==
--- NOTE | 2025-03-27 15:50 | PAT.ANESEVAL ---
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 When Was Last Pacemaker Check QUESTION #4 FULL TEXT: You/Your Family Experience fever (hyperthermia) with Anesthesia Last Oral Intake Last Oral intake: Last Oral Intake NPO since Meds taken in AM with sips of water? Meds patient instructed to take am of surgery PONV PONV - rail signal designer: PONV - rail signal designer Female No 03/27/25 15:31 HX of Motion Sickness No 03/27/25 15:31 HX of N/V After Surgery Yes 03/27/25 15:31 Non-Smoker Yes 03/27/25 15:31 Duration of Surgery greater Yes 03/27/25 15:31 than 60 minutes Number of Risk Factors 3 03/27/25 15:31 PONV Score Moderate Risk 03/27/25 15:31 Height & Weight Height & Weight: Anesthesia: Height & Weight Height 5 ft 8 in 03/21/25 03:08 Respiratory Assessment Respiratory Assessment - rail signal designer: Respiratory Tract Infection Hx - rail signal designer Hx Respiratory Tract Infection No 03/27/25 15:31 STOP Sleep Apnea STOP Sleep Apnea - rail signal designer: STOP Sleep Apnea - rail signal designer Hx Hypertension Yes: CONTROLLED ON MED 03/27/25 15:31 Hx Sleep Apnea No 03/27/25 15:31 CPAP No 03/27/25 15:31 BIPAP No 03/27/25 15:31 Do you snore loudly (louder No 03/27/25 15:31 than talking or can be heard Do you often feel tired/ No 03/27/25 15:31 fatigued/ sleepy during daytime? Has anyone observed you stop No 03/27/25 15:31 breathing during sleep? STOP Results Negative 03/27/25 15:31 QUESTION #5 FULL TEXT : Do you snore loudly (louder than talking or can be heard through closed doors)? 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 Specify any problems Hx of Preganancy in last 3 N/A 03/27/25 15:31 Months Nurse Filling Out Transfusion VCHRISTIN 03/27/25 15:31 & Questions: Date: 03/27/25 03/27/25 15:31 Time: 15:32 03/27/25 15:31 Patient unable to answer at this time (ie. confused, unrespo /Reproduction History /Reproductive History - rail signal designer: /Reproductive Hx- rail signal designer Hx Now No 03/27/25 15:31 Gestational Age (in weeks): EDC: Hx Hx Para Hx Section SAB No 03/27/25 15:31 Does the father of the baby or his family experience fever w Father of the baby Malignant Hypertension history comment Active Medications Active Medications: Current Medications Generic Name Dose Route Start Last Admin Trade Name Freq PRN Reason Stop Dose Admin Vancomycin HCl 1,000 mg/ 270 mls @ 250 mls/hr 03/30/25 07:00 Sodium Chloride IV 03/30/25 08:04 PREOP [facility] Medical History (Updated 03/27/25 @ 15:31 by Tresa Mesa) History of transcatheter aortic valve replacement (TAVR) MRSA (methicillin resistant staph aureus) culture positive Compression fracture of L5 vertebra Compression fracture of L4 vertebra Compression fracture of L3 vertebra Compression fracture of L2 Compression fracture of L1 lumbar vertebra Wears glasses Cancer Cancer Pressure ulcer History of renal dialysis History of renal disease Injury of back History of GI bleed Gastric reflux History of stress test History of echocardiogram Cardiology follow-up encounter Acute on chronic anemia Current use of [facility] anticoagulation ESRD (end stage renal disease) on dialysis Acute exacerbation of chronic heart failure Pleural effusion Knee pain Hx of sinus tachycardia Hematuria Thrombocytopenia Adenocarcinoma of esophagus Non-smoker Esophageal carcinoma Atherosclerosis of coronary artery of [place] heart without angina 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 Essential (primary) hypertension Non-rheumatic aortic stenosis Hyperlipidemia Atherosclerotic heart disease of [place] coronary artery with other forms of angina pectoris Encounter for long-term current use of high risk medication abnormal stress test Exertional chest pain Home Medications ?Medication ?Instructions ?Recorded ?Last Taken ?Type atorvastatin 80 mg tablet 80 mg PO QHS CHOLESTEROL #90 tabs 05/15/22 12/24/23 Rx metoprolol tartrate 25 mg tablet 25 mg PO BID #0 tabs 10/25/23 06/30/24 05:30 Rx pantoprazole 40 mg tablet,delayed 40 mg PO BID #0 tabs 10/25/23 06/30/24 05:30 Rx release ferrous sulfate 325 mg (65 mg 325 mg PO DAILY #90 tabs 11/20/23 06/29/24 Rx iron) tablet polyethylene glycol 3350 17 17 g PO DAILY PRN constipation 12/04/23 Unknown History gram/dose oral powder (Miralax) ondansetron 4 mg disintegrating 4 mg PO Q8H PRN PRN nausea and 12/25/23 12/25/23 08:00 History tablet vomiting nitroglycerin 0.4 mg sublingual 0.4 mg sublingual PRN PRN angina 02/14/24 Unknown History tablet acetaminophen 500 mg tablet 1,000 mg (2 x 500 mg) PO Q8 pain 7 03/07/25 Unknown Rx days #42 tabs ascorbic acid (vitamin C) 500 mg 500 mg PO DAILY 03/19/25 Unknown History capsule ezetimibe 10 mg tablet 10 mg PO DAILY 03/19/25 Unknown History fexofenadine 60 mg tablet 60 mg PO Q24H 03/19/25 Unknown History fluticasone propionate 50 2 spray intranasal BID PRN allergy 03/19/25 Unknown History mcg/actuation nasal symptoms spray,suspension montelukast 10 mg tablet 10 mg PO QHS 03/19/25 Unknown History olanzapine 2.5 mg tablet 2.5 mg PO QHS 03/19/25 Unknown History vitamin B complex-vitamin C-folic 1 tab PO DAILY 03/19/25 Unknown History acid 0.8 mg tablet (Nohelia-Luz) rifampin 300 mg capsule 300 mg PO BID 90 days #180 caps 03/23/25 Unknown Rx vancomycin 500 mg intravenous 500 mg IV .see below 40 days #18 ea 03/23/25 Unknown Rx solution aspirin 81 mg chewable tablet 81 mg PO BID 30 days #60 tabs 03/24/25 Unknown Rx Allergy/AdvReac Type Severity Reaction Status Date / Time No Known Allergies Allergy Verified 03/27/25 15:23 Family History Father Heart disease Myocardial infarction Hypertension Brother Hypertension Sister Heart disease Myocardial infarction Surgical History (Updated 03/27/25 @ 15:31 by Tresa Mesa) History of hip surgery Hx of surgical procedure History of hip replacement (~02/2024) History of cardiac catheterization History of esophagogastroduodenoscopy (EGD) Hx of surgical procedure History of aortic valve replacement (03/03/19) History of coronary artery stent placement (12/31/18) H/O coronary artery bypass surgery (09/18/02) History of tonsillectomy History of hernia repair Social History Smoking Status: Never smoker alcohol intake: never substance use type: does not use caffeine: No what type of physical activity do you participate in: walking frequency: daily Audit: Pertinent Findings Pertinent Findings EKG Perinent findings: 01/30/2025. Normal sinus rhythm. Cannot rule out anterior infarct, age undetermined. Stress test pertinent findings: January 08, 2021. EF is 69%. Negative Lexiscan myocardial perfusion study for reversible myocardial ischemia. Echo (EF%) pertinent findings: 02/15/2024. EF 60%. Stable appearing bioprosthetic aortic valve. Consult pertinent findings: April 29, 2024. Brianna JOSEPH. 1. Atherosclerosis of coronary arteries of [place] heart without angina-status post APPLE stent x 4. CABG x 3. Latest stress test negative for ischemia. Continue to monitor. 2. History of aortic valve replacement-TAVR in 03/03/2019. 3. Adenocarcinoma of esophagus-status post esophagectomy, radiation, chemotherapy. Continue care with oncologist. 4. ESRD on dialysis-continue dialysis on Sunday. Additional pertinent findings: 03/24/2025. Hemoglobin is 8.2. Creatinine is 2.5. Recommendation Anesthesia Recommendation Anesthesia recommendation: OPTIMIZED for anesthesia (Will repeat hemoglobin on day of surgery will get a type and screen with the same lab draw.)
[2025-03-30] VITALS (7 sets, daily range): BP systolic 91–105; BP diastolic 54–73; PULSE 83–110; RESP 16–18; TEMP 36.2–37.4; O2SAT 98–100; BMI 23.4
--- NOTE | 2025-03-30 10:08 | PCM.PRE.AN2 ---
ASA Classification* ASA Classification ASA Classification: 3 Assessment & Plan Anesthesia* Anesthesia Assessment Anesthesia Assessment: Discussed sedation and/or anesthesia options, risks, benefits, and alternatives with patient/parents/legal guardian/POA. Questions invited. The patient/parents/legal guardian/POA seems to understand and agrees to proceed with anesthesia plan. Reviewed the physical assessment, medical history, allergy history and patient home medications list prior to surgery/procedure/anesthetic and documented any changes. Performed airway and anesthesia risk assessments. Anesthesia Type Anesthesia Type: MAC Anesthesia Focused Assessment* Airway Assessment Mouth opens: >3 cm Mallampati Score: II Labs Anesthesia Preop lab: CBC WBC, (4.4-11.0) 6.1 K/mm3 03/24/25, 06:08 RBC, (4.6-6.2) 2.72 M/mm3 L 03/24/25, 06:08 Hgb, (13.0-16.5) 8.2 g/dL L 03/24/25, 06:08 Hct, (40-54) 26.2 % L 03/24/25, 06:08 Plt Count, (150-450) 269 K/mm3 03/24/25, 06:08 CHEMISTRY Potassium, (3.3-5.1) 4.0 mmol/L 03/24/25, 06:08 Sodium, (133-145) 140 mmol/L 03/24/25, 06:08 Magnesium, (1.6-2.6) 2.2 mg/dL 02/15/24, 06:30 Phosphorus, (2.5-4.9) 4.9 mg/dL 02/15/24, 06:30 BUN, (4-19) 37 mg/dL H 03/24/25, 06:08 Creatinine, (0.70-1.20) 2.50 mg/dL H 03/24/25, 06:08 Glucose, (70-99) 102 mg/dL H 03/24/25, 06:08 TSH, (0.358-3.740) 2.630 uIU/mL 02/15/24, 06:30 COAG PT, (11.7-14.9) 17.1 SECONDS H 03/21/25, 06:38 Pre-Assessment Diagnosis/Proposed Procedure Planned Operative Procedure(s): (L) Left Upper Extremity Fistulogram and Left Upper Extremity Fistula Revision Branch 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 When Was Last Pacemaker Check QUESTION #4 FULL TEXT: You/Your Family Experience fever (hyperthermia) with Anesthesia Last Oral Intake Last Oral intake: Last Oral Intake NPO since Meds taken in AM with sips of water? Meds patient instructed to take am of surgery PONV PONV - digital strategy specialist: PONV - digital strategy specialist Female No 03/27/25 15:31 HX of Motion Sickness No 03/27/25 15:31 HX of N/V After Surgery Yes 03/27/25 15:31 Non-Smoker Yes 03/27/25 15:31 Duration of Surgery greater Yes 03/27/25 15:31 than 60 minutes Number of Risk Factors 3 03/27/25 15:31 PONV Score Moderate Risk 03/27/25 15:31 Height & Weight Height & Weight: Anesthesia: Height & Weight Height 5 ft 8 in 03/21/25 03:08 Respiratory Assessment Respiratory Assessment - digital strategy specialist: Respiratory Tract Infection Hx - digital strategy specialist Hx Respiratory Tract Infection No 03/27/25 15:31 STOP Sleep Apnea STOP Sleep Apnea - digital strategy specialist: STOP Sleep Apnea - digital strategy specialist Hx Hypertension Yes: CONTROLLED ON MED 03/27/25 15:31 Hx Sleep Apnea No 03/27/25 15:31 CPAP No 03/27/25 15:31 BIPAP No 03/27/25 15:31 Do you snore loudly (louder No 03/27/25 15:31 than talking or can be heard Do you often feel tired/ No 03/27/25 15:31 fatigued/ sleepy during daytime? Has anyone observed you stop No 03/27/25 15:31 breathing during sleep? STOP Results Negative 03/27/25 15:31 QUESTION #5 FULL TEXT : Do you snore loudly (louder than talking or can be heard through closed doors)? 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 Specify any problems Hx of Preganancy in last 3 N/A 03/27/25 15:31 Months Nurse Filling Out Transfusion VCHRISTIN 03/27/25 15:31 & Questions: Date: 03/27/25 03/27/25 15:31 Time: 15:32 03/27/25 15:31 Patient unable to answer at this time (ie. confused, unrespo /Reproduction History /Reproductive History - digital strategy specialist: /Reproductive Hx- digital strategy specialist Hx Now No 03/27/25 15:31 Gestational Age (in weeks): EDC: Hx Hx Para Hx Section SAB No 03/27/25 15:31 Does the father of the baby or his family experience fever w Father of the baby Malignant Hypertension history comment Active Medications Active Medications: Current Medications Generic Name Dose Route Start Last Admin Trade Name Freq PRN Reason Stop Dose Admin Sodium Chloride 1,000 mls @ 15 mls/hr 03/30/25 10:00 IV .Q48H JIGNA PFSH Medical History History of transcatheter aortic valve replacement (TAVR) MRSA (methicillin resistant staph aureus) culture positive Compression fracture of L5 vertebra Compression fracture of L4 vertebra Compression fracture of L3 vertebra Compression fracture of L2 Compression fracture of L1 lumbar vertebra Wears glasses Cancer Cancer Pressure ulcer History of renal dialysis History of renal disease Injury of back History of GI bleed Gastric reflux History of stress test History of echocardiogram Cardiology follow-up encounter Acute on chronic anemia Current use of fdc anticoagulation ESRD (end stage renal disease) on dialysis Acute exacerbation of chronic heart failure Pleural effusion Knee pain Hx of sinus tachycardia Hematuria Thrombocytopenia Adenocarcinoma of esophagus Non-smoker Esophageal carcinoma Atherosclerosis of coronary artery of [place] heart without angina 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 Essential (primary) hypertension Non-rheumatic aortic stenosis Hyperlipidemia Atherosclerotic heart disease of [place] coronary artery with other forms of angina pectoris Encounter for long-term current use of high risk medication abnormal stress test Exertional chest pain Home Medications ?Medication ?Instructions ?Recorded ?Last Taken ?Type atorvastatin 80 mg tablet 80 mg PO QHS CHOLESTEROL #90 tabs 05/15/22 12/24/23 Rx metoprolol tartrate 25 mg tablet 25 mg PO BID #0 tabs 10/25/23 06/30/24 05:30 Rx pantoprazole 40 mg tablet,delayed 40 mg PO BID #0 tabs 10/25/23 06/30/24 05:30 Rx release ferrous sulfate 325 mg (65 mg 325 mg PO DAILY #90 tabs 11/20/23 06/29/24 Rx iron) tablet polyethylene glycol 3350 17 17 g PO DAILY PRN constipation 12/04/23 Unknown History gram/dose oral powder (Miralax) ondansetron 4 mg disintegrating 4 mg PO Q8H PRN PRN nausea and 12/25/23 12/25/23 08:00 History tablet vomiting nitroglycerin 0.4 mg sublingual 0.4 mg sublingual PRN PRN angina 02/14/24 Unknown History tablet acetaminophen 500 mg tablet 1,000 mg (2 x 500 mg) PO Q8 pain 7 03/07/25 Unknown Rx days #42 tabs ascorbic acid (vitamin C) 500 mg 500 mg PO DAILY 03/19/25 Unknown History capsule ezetimibe 10 mg tablet 10 mg PO DAILY 03/19/25 Unknown History fexofenadine 60 mg tablet 60 mg PO Q24H 03/19/25 Unknown History fluticasone propionate 50 2 spray intranasal BID PRN allergy 03/19/25 Unknown History mcg/actuation nasal symptoms spray,suspension montelukast 10 mg tablet 10 mg PO QHS 03/19/25 Unknown History olanzapine 2.5 mg tablet 2.5 mg PO QHS 03/19/25 Unknown History vitamin B complex-vitamin C-folic 1 tab PO DAILY 03/19/25 Unknown History acid 0.8 mg tablet (Nohelia-Luz) rifampin 300 mg capsule 300 mg PO BID 90 days #180 caps 03/23/25 Unknown Rx vancomycin 500 mg intravenous 500 mg IV .see below 40 days #18 ea 03/23/25 Unknown Rx solution aspirin 81 mg chewable tablet 81 mg PO BID 30 days #60 tabs 03/24/25 Unknown Rx Allergy/AdvReac Type Severity Reaction Status Date / Time No Known Allergies Allergy Verified 03/30/25 10:06 Family History Father Heart disease Myocardial infarction Hypertension Brother Hypertension Sister Heart disease Myocardial infarction Surgical History History of hip surgery Hx of surgical procedure History of hip replacement (~02/2024) History of cardiac catheterization History of esophagogastroduodenoscopy (EGD) Hx of surgical procedure History of aortic valve replacement (03/03/19) History of coronary artery stent placement (12/31/18) H/O coronary artery bypass surgery (09/18/02) History of tonsillectomy History of hernia repair Social History Smoking Status: Never smoker alcohol intake: never substance use type: does not use caffeine: No what type of physical activity do you participate in: walking frequency: daily Review of Systems (Anesthesia) ROS Narrative System reviewed and no additional complaints, except as documented.
[2025-03-30] MEDS: Vancomycin HCl 1,000 MG in 0.9% Normal Saline (250mL Bag) 250 ML 250 MG IV (10:19)
[2025-03-30] MEDS: 0.9% Normal Saline (1000mL) 1,000 ML 15 ML IV (10:23)
--- NOTE | 2025-03-30 12:57 | SUR.PREOP ---
pt given update about surgery delay. family at bedside
--- NOTE | 2025-03-30 14:50 | HP.PCM_ITS ---
HPI - General HPI Narrative NICKO ROSALES, is a 70 M who presents left arm edema, large branch from fistula that empties via forearm deep veins. He also has central stenosis. Plan had been for central venogram with stent today and ligate branch but last week he had a left IJ tunneled catheter placed. FORMERLY [facility], [facility] Medical History History of transcatheter aortic valve replacement (TAVR) MRSA (methicillin resistant staph aureus) culture positive Compression fracture of L5 vertebra Compression fracture of L4 vertebra Compression fracture of L3 vertebra Compression fracture of L2 Compression fracture of L1 lumbar vertebra Wears glasses Cancer Cancer Pressure ulcer History of renal dialysis History of renal disease Injury of back History of GI bleed Gastric reflux History of stress test History of echocardiogram Cardiology follow-up encounter Acute on chronic anemia Current use of termite helper anticoagulation ESRD (end stage renal disease) on dialysis Acute exacerbation of chronic heart failure Pleural effusion Knee pain Hx of sinus tachycardia Hematuria Thrombocytopenia Adenocarcinoma of esophagus Non-smoker Esophageal carcinoma Atherosclerosis of coronary artery of [place] heart without angina 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 Essential (primary) hypertension Non-rheumatic aortic stenosis Hyperlipidemia Atherosclerotic heart disease of [place] coronary artery with other forms of angina pectoris Encounter for long-term current use of high risk medication abnormal stress test Exertional chest pain Home Medications ?Medication ?Instructions ?Recorded ?Last Taken ?Type atorvastatin 80 mg tablet 80 mg PO QHS CHOLESTEROL #90 tabs 05/15/22 03/26/25 Rx metoprolol tartrate 25 mg tablet 25 mg PO BID #0 tabs 10/25/23 03/29/25 Rx pantoprazole 40 mg tablet,delayed 40 mg PO BID #0 tabs 10/25/23 03/29/25 Rx release ferrous sulfate 325 mg (65 mg 325 mg PO DAILY #90 tabs 11/20/23 03/29/25 Rx iron) tablet polyethylene glycol 3350 17 17 g PO DAILY PRN constipa tion 12/04/23 Unknown History gram/dose oral powder (Miralax) ondansetron 4 mg disintegrating 4 mg PO Q8H PRN PRN na usea and 12/25/23 03/26/25 History tablet vomiting nitroglycerin 0.4 mg sublingual 0.4 mg sublingual PRN PRN angina 02/14/24 Unknown History tablet acetaminophen 500 mg tablet 1,000 mg (2 x 500 mg) PO Q 8 pain 7 03/07/25 03/29/25 Rx days #42 tabs ascorbic acid (vitamin C) 500 mg 500 mg PO DAILY 03/1903/29/25 History capsule ezetimibe 10 mg tablet 10 mg PO DAILY 03/19/2503/09 History fexofenadine 60 mg tablet 60 mg PO Q24H 03/19/2503/29 History fluticasone propionate 50 2 spray intranasal BID PRN a llergy 03/19/25 03/25/25 History mcg/actuation nasal symptoms spray,suspension montelukast 10 mg tablet 10 mg PO QHS 03/19/25 History olanzapine 2.5 mg tablet 2.5 mg PO QHS 03/19/2503/29 History vitamin B complex-vitamin C-folic 1 tab PO DAILY 03/1903/29/25 History acid 0.8 mg tablet (Nohelia-Luz) rifampin 300 mg capsule 300 mg PO BID 90 days #180 c aps 03/23/25 03/29/25 Rx vancomycin 500 mg intravenous 500 mg IV .see below 40 days #18 ea 03/23/25 03/28/25 Rx solution aspirin 81 mg chewable tablet 81 mg PO BID 30 days #60 tabs 03/24/25 03/29/25 Rx Allergy/AdvReac Type Severity Reaction Status Date / Time No Known Allergies Allergy Verified 03/30/25 10:06 Family History Father Heart disease Myocardial infarction Hypertension Brother Hypertension Sister Heart disease Myocardial infarction Surgical History History of hip surgery Hx of surgical procedure History of hip replacement (~02/2024) History of cardiac catheterization History of esophagogastroduodenoscopy (EGD) Hx of surgical procedure History of aortic valve replacement (03/03/19) History of coronary artery stent placement (12/31/18) H/O coronary artery bypass surgery (09/18/02) History of tonsillectomy History of hernia repair Social History Smoking Status: Never smoker alcohol intake: never substance use type: does not use caffeine: No what type of physical activity do you participate in: walking frequency: daily ROS Constitutional Constitutional: Denies chills, fever(s), frequent falls, lethargy or weakness Eyes Eyes: Denies blind spots, change in vision or loss of vision ENT HEENT: Denies bleeding gums, hoarseness or sore throat Cardiovascular Cardiovascular: Denies abdominal pain, bluish discoloration of hand/feet, chest pain with activity, claudication, cold extremities, cyanosis, dyspnea on exertion, erythema on extremities, irregular heart rhythm, leg edema, leg ulcers, numbness in extremities or weakness in extremities Respiratory/Chest Respiratory/Chest: Denies cough, excessive phlegm production, shortness of breath at rest, shortness of breath with exertion or wheezing Gastrointestinal Gastrointestinal: Denies anorexia, change in stool character, constipation, diarrhea, melena or rectal bleeding Genitourinary Genitourinary: Denies dysuria or hematuria Musculoskeletal Musculoskeletal: Denies abnormal gait Integumentary Integumentary: Reports other Details: ; Denies erythema, non-healing lesions or wounds Neurologic Neurologic: Denies abnormal speech, focal weakness, headache(s), loss of vision, numbness, paresthesias or sensory deficit Hematologic/Lymphatic Hematologic/Lymphatic: Denies easy bleeding, easy bruising or lymphadenopathy Patient's Goals Of Care . What would you like to achieve or improve as a result of your hospital stay?: wtf Vital Signs Vital Signs Vital Signs: 03/30/25 10:13 03/30/25 10:13 03/30/25 10:13 Temperature 97.2 F L Temperature Source Temporal Pulse Rate 110 H Respiratory Rate 18 Respiratory Pattern Normal Blood Pressure 91/73 Blood Pressure Mean 79 Blood Pressure Source Monitor Blood Pressure Position Semi-Fowlers Blood Pressure Location Right Arm Baseline BP 91/73 Pulse Ox 100 Oxygen Delivery Method Room Air Weight Weight: 149 lb 14.629 oz Body Mass Index (BMI) 23.4 Physical Exam Const alert, oriented x3, no apparent distress and healthy appearing General Appearance: cooperative; Negative for combative or lethargic Orientation / Consciousness: awake Exam Limitations: no limitations HEENT Head and Scalp: normocephalic and atraumatic Eyes EOMs intact bilaterally General Eye: normal appearance of both eyes Neck full ROM, no lymphadenopathy, thyroid normal and No no carotid bruits General: trachea midline; Negative for lymphadenopathy or tenderness Thyroid: thyroid normal Lymph Lymphatic: Negative for no lymphadenopathy noted Resp normal respiratory effort, no use of accessory muscles and clear to auscultation bilaterally Effort and Inspection: Negative for labored, stridor or audible wheezes Cardio regular rate, regular rhythm and no murmurs Peripheral Pulses: brachial pulses present, radial pulses present, femoral pulses present, popliteal pulses present, posterior tibial pulses present and dorsalis pedis pulses present GI non-tender and non-distended; Negative for hepatosplenomegaly Back/Spine Cervical Spine: cervical ROM normal Extremity full ROM, normal capillary refill and no clubbing, cyanosis or edema Skin no rashes or lesions noted and no wounds Neuro oriented x3, CN's II-XII intact bilaterally, no focal motor deficits and no sensory deficits noted Psych thought process normal, cooperative, affect normal, speech normal and activity/motor behavior normal Assessment & Plan Assessment/Plan (1) Dialysis AV fistula malfunction: QUALIFIERS: Encounter type: subsequent encounter Qualified Code(s): T82.590D - Other mechanical complication of surgically created arteriovenous fistula, subsequent encounter PLAN: -ligate branch -no venogram today given catheter position; will plan exchange and stent in a few weeks
[2025-03-30] MEDS: Midazolam 2 MG/2 ML Syringe IV (15:06)
[2025-03-30] MEDS: 0.9% Normal Saline (1000mL) 200 ML IV (15:06)
[2025-03-30] MEDS: Lidocaine 1% (5 ml sdv) 5 ML Vial 6 ML IV (15:12)
[2025-03-30] MEDS: Lidocaine 1% (30 ml sdv) 30 ML Vial (15:27)
--- NOTE | 2025-03-30 15:43 | DCINST_ITS ---
Discharge Instructions Diet Discharge Diet: Renal Diet Activity Lifting Restrictions: do not lift > 20 lbs for 14 days with left arm Keep extremity elevated above heart level: Left Arm Additional Activity Instructions:: do not submerge incision for 14 days Dressing / Incision Call your doctor if your incision/area has: Sudden Increased Bleeding, Increased Pain/ Swelling, Increased Redness and Foul Smelling Discharge Change Dressing in: 2 days Additional Dressing/Incision Instructions:: re-apply stephanie wrap daily Follow Up Care Test Results: Test results from this visit will be discussed in further detail at your follow- up appointment, if applicable. Discharge Plan Admission Attending Provider: Nikita Jackson Primary Care Provider: Yaw Singh Instructions Print Language: Citizen Of [place] Discharge Orders/Prescriptions Prescriptions: New oxycodone 5 mg tablet 5 mg PO Q8H PRN (Reason: pain) 1 Days Qty: 3 0RF Continued atorvastatin 80 mg tablet 80 mg PO QHS Qty: 90 3RF Patient Comments: per PCP med list end date is 04/05/25 ferrous sulfate 325 mg (65 mg iron) tablet 325 mg PO DAILY Qty: 90 3RF metoprolol tartrate 25 mg Tablet 25 mg PO BID Qty: 0 0RF pantoprazole 40 mg Tablet,Delayed Release (Dr/Ec) 40 mg PO BID Qty: 0 0RF polyethylene glycol 3350 [Miralax] 17 gram/dose powder 17 g PO DAILY PRN (Reason: constipation) ondansetron 4 mg tablet,disintegrating 4 mg PO Q8H PRN PRN (Reason: nausea and vomiting) fexofenadine 60 mg tablet 60 mg PO Q24H ezetimibe 10 mg tablet 10 mg PO DAILY Patient Comments: per PCP med list fluticasone propionate 50 mcg/actuation spray,suspension 2 spray INTRANASAL BID PRN (Reason: allergy symptoms) olanzapine 2.5 mg tablet 2.5 mg PO QHS montelukast 10 mg tablet 10 mg PO QHS Nohelia-Luz 0.8 mg tablet 1 tab PO DAILY ascorbic acid (vitamin C) 500 mg capsule 500 mg PO DAILY rifampin 300 mg Capsule 300 mg PO BID 90 Days Qty: 180 1RF vancomycin 500 mg recon soln 500 mg IV .see below 40 Days Qty: 18 0RF Rx Instructions: IV vanc 500mg dosed TuThSat with dialysis. Stop date 05/02/25. Dx: L hip PJI. Weekly bmp, cbc, LFT, vanc trough, and esr. Fax to [phone]. aspirin 81 mg Tablet,Chewable 81 mg PO BID 30 Days Qty: 60 0RF Rx Instructions: Take for 30 days postop and then okay to discontinue nitroglycerin 0.4 mg tablet, sublingual 0.4 mg sublingual PRN PRN (Reason: angina) acetaminophen 500 mg tablet 1,000 mg PO Q8 7 Days Qty: 42 0RF Rx Instructions: Take Tylenol this way for 5 to 7 days postoperatively and then okay to go back and use as needed Referrals / Follow Up: Yaw Singh MD [Primary Care Provider, Family Practice] Disposition Disposition (needs filled in before D/C Order can be placed): Home, Self Care
--- NOTE | 2025-03-30 15:55 | PCM.POST.ANE ---
Anesthesia: Postop Eval I Current Vital Signs Temperature: 98.2 F Pulse Rate: 87 Blood Pressure: 91/54 Respiratory Rate: 16 Pulse Ox: 98 Oxygen Delivery Method: Room Air Assessment Airway patent: Yes Spontaneous unlabored respirations: Yes Mental status: Awake and Calm nausea: No Vomiting: No Anesthesia Complication: No Fluid Hydration Crystalloid volume administer (ml): 200 Total IV fluid infused: 200 Progress Note Anesthesia document: Postop Eval 1 completed: Yes
[2025-03-30] MEDS: 0.9% Saline Lock 10 ML Syringe IV (16:33)
--- NOTE | 2025-03-30 17:10 | PCM.OPRPT ---
Operative Report (Standard) Operative Information Date of Procedure: 03/30/25 Pre-Operative Diagnosis: Malfunction of a left brachial cephalic fistula with outflow stenosis and large peripheral branch that fills the deep veins of the forearm Post-Operative Diagnosis: Same Surgery/Procedure Performed: Ligation of forearm branch of the fistula shaper operator: Yes Seed Corn Production Manager: Filipe Hammond Tasks completed by wellness assistant: Opening, Closing, Opening & closing, Hemostasis: Tie and Retracting Type of Anesthesia: Local MAC, Local and MAC RN Documented Start/Stop Times: Operation Date: 03/30/25 13:00 Case Time Into Pre-Op 03/30/25 09:59 Anesthesia Start 03/30/25 15:06 Into Room 03/30/25 15:06 Procedure Start 03/30/25 15:27 Procedure End 03/30/25 15:45 Anesthesia End 03/30/25 15:52 Out of Room 03/30/25 15:52 Into Recovery 03/30/25 15:55 Out of Recovery 03/30/25 16:12 Into Phase II Recovery 03/30/25 16:13 Procedure Start Time: 15:30 Procedure Stop Time: 15:45 Select all DRAINS/GRAFTS/IMPLANTS that apply: None Estimated Blood Loss: 1 Specimen collected: No Description of surgery: HPI: Patient is a 70-year-old male who previously had a left upper arm cephalic fistula created. He has developed increasing forearm edema and some prolonged bleeding periodically at dialysis. He previously underwent a fistulogram which revealed innominate vein stenosis which was treated with balloon angioplasty with radiographic improvement and improved contrast transit. This fistulogram also revealed a very large forearm branch which filled the deep veins of the forearm. It was felt that this was the main driving pathology behind his forearm edema as he had no edema above the antecubital crease at the time. In the interval he has developed worsening bleeding at his needle sites and has had a tunneled dialysis catheter placed at an outside facility. Plan was to perform repeat fistulogram with angioplasty and stenting of the innominate vein today as well as ligation of the forearm branch. The patient noted that when he had his catheter placed that they told him he had no IJ patent on the right-hand side so a left IJ tunneled catheter was placed. Given its position transiting the left innominate vein and the area of stenosis it was felt that angioplasty and stent would not be appropriate today and that he would require catheter removal in order to perform the angioplasty and stent with subsequent catheter replacement and that his infection risk performing this only a few days after original catheter placement would be exceedingly high. The new plan today is to ligate the branch and bring him back in several weeks to perform the angioplasty and stent with catheter exchange. Description of procedure: Upon obtaining form consent and verification correct patient procedure site the patient was taken to the operating where he was positioned prepped and draped in usual sterile fashion. Time was performed and moderate sedation ministered by anesthesia. Ultrasound used to evaluate of the fistula and a large dominant branch visualized with a trajectory towards the forearm. Skin overlying the site was anesthetized 1% lidocaine and transverse incision created. Combination of Bovie and blunt dissection were used to dissect through subcutaneous tissue until the vein was identified. This fistula branch was then ligated with silk ties. Given the excessive amount of edema it was felt that absorbable suture would be insufficient for wound closure so interrupted Ethilon 3-0 were placed followed by dry gauze Kerlix and an Cody wrap from the palm of the hand to the axilla. Plan is for return for fistulogram with central venous stenting at a later time. Surgical Findings: See above Complications Complications: No
--- NOTE | 2025-03-30 20:31 | POSTOPAN2_ITS ---
Anesthesia Postop Eval I Sum Postop Eval Completion status Anesthesia document: Postop Eval 1 completed: Yes Anesthesia Postop Eval I Summary Anesthesia Postop Eval I Summary: Anesthesia Postop Eval I: Assessment Summary Airway patent Yes 03/30/25 15:56 [email or web address] Spontaneous unlabored Yes 03/30/25 15:56 [email or web address] respirations Mental status Awake,Calm 03/30/25 15:56 [email or web address] nausea No 03/30/25 15:56 [email or web address] [email or web address] Vomiting No 03/30/25 15:56 [email or web address] Anesthesia Postop Eval I: Fluid Summary Crystalloid volume administer 200 03/30/25 15:56 [email or web address] (ml) Colloids volume administered ( ml) Blood Product volume administered (ml) Total IV fluid infused 200 03/30/25 15:56 [email or web address] Anesthesia Postop Eval I: Summary Notes Anesthesia Complication No 03/30/25 15:56 [email or web address] Anesthesia Complication Comment: Post-operative progress note Anesthesia: Postop Eval II Evaluation Mental status: Awake Pain Level: 0 nausea: No Vomiting: No
--- NOTE | 2025-03-30 20:31 | PCM.POSTANE2 ---
Anesthesia Postop Eval I Sum Postop Eval Completion status Anesthesia document: Postop Eval 1 completed: Yes Anesthesia Postop Eval I Summary Anesthesia Postop Eval I Summary: Anesthesia Postop Eval I: Assessment Summary Airway patent Yes 03/30/25 15:56 [email or web address] [email or web address] [email or web address] Spontaneous unlabored Yes 03/30/25 15:56 POULTRY [email or web address] [email or web address] respirations Mental status Awake,Calm 03/30/25 15:56 [email or web address] [email or web address] [email or web address] nausea No 03/30/25 15:56 POULTRY [email or web address] [email or web address] Vomiting No 03/30/25 15:56 POULTRY [email or web address] [email or web address] Anesthesia Postop Eval I: Fluid Summary Crystalloid volume administer 200 03/30/25 15:56 POULTRY [email or web address] (ml) Colloids volume administered ( ml) Blood Product volume administered (ml) Total IV fluid infused 200 03/30/25 15:56 POULTRY [email or web address] [email or web address] Anesthesia Postop Eval I: Summary Notes Anesthesia Complication No 03/30/25 15:56 POULTRY [email or web address] [email or web address] Anesthesia Complication Comment: Post-operative progress note Anesthesia: Postop Eval II Evaluation Mental status: Awake Pain Level: 0 nausea: No Vomiting: No
== END 2025-03-30 17:17 | disposition home or self-care (01) ==
LOC: SDC 09:43 → AC 09:43
PROVIDERS: PCP Family Medicine; Referring Provider Surgery Trauma Surgery; Visit Provider Surgery Trauma Surgery
PROC: (CPT 37607; principal; 2025-03-30 12:45)
DX: T82.590A Other mechanical complication of surgically created arteriovenous fistula, initial encounter (principal); N18.6 End stage renal disease; I12.0 Hypertensive chronic kidney disease with stage 5 chronic kidney disease or end stage renal disease; K21.9 Gastro-esophageal reflux disease without esophagitis; I25.10 Atherosclerotic heart disease of native coronary artery without angina pectoris; E78.5 Hyperlipidemia, unspecified; Z99.2 Dependence on renal dialysis; Z79.82 Long term (current) use of aspirin; Z79.899 Other long term (current) drug therapy; Z95.5 Presence of coronary angioplasty implant and graft; Z95.1 Presence of aortocoronary bypass graft; X58.XXXA Exposure to other specified factors, initial encounter
CPT/HCPCS: 37607; 01840; A4648; A4216

== ENCOUNTER 2025-04-08 06:12 | Emergency (ER) | payer MEDICARE, OTHER, SELFPAY ==
[2025-04-08 06:12] VITALS: BP 126/75; PULSE 84; RESP 18; TEMP 36.3; O2SAT 97; BMI 24.7
--- NOTE | 2025-04-08 06:28 | AVDS_ITS ---
Reason For Study Reason For Study: Edema LEFT Brachiocephalic AVF Inflow, 160.5/76.5 cm/sec. Inflow, 2041 ml/min. Anastomosis, 288/173 cm/sec. Anastomosis, 1139 ml/min. Prox Graft, 408.6/215 cm/sec. Prox Graft, 5937 ml/min. Prox Graft, 279.9/136.4 cm/sec. Prox Graft, 6473 ml/min. Mid Graft, 118.1/63.3 cm/sec. Mid Graft, 2169 ml/min. Dist Graft, 267.8/147 cm/sec. Dist Graft, 3023 ml/min. Outflow, 144.2/71.6 cm/sec. Outflow, 1750 ml/min Radial artery distal, 31.7 cm/sec. Ulnar artery distal, 22.5 cm/sec. Branch noted at prox graft that is s/p ligation, no flow noted. Preliminary report given to Nafisa BAUTISTA. VL/AV Fistula/Dialysis Graft Scan Interpretation Summary Patent left upper extremity fistula with normal velocities and no stenosis visu alized. Ordering Physician: Fidelina Holman Referring Physician: Yaw Singh Performed By: Di Appiah RVT
--- NOTE | 2025-04-08 06:31 | EX.ED.UPPERE ---
HPI <Dr. Fidelina Holman MD - Last Filed: 04/11/25 07:06> History of Present Illness Chief Complaint: Edema Narrative Narrative: Patient is a 70-year-old male presenting to the emergency department for continued left upper extremity swelling. Patient was here on 03/19 for similar complaints. On 30 March, just 9 days ago he had a ligation of the forearm branch of the fistula by Dr. Rodriguez due to malfunctioning of the fistula with outflow stenosis. Prior to this he had forearm edema that was thought to be the due to the forearm branch per Dr. Rodriguez's note. During the surgery on the it was determined that is not appropriate for an angioplasty and stent given he had a left tunneled IJ catheter in place. Patient states since then he has continued to have swelling in his left upper extremity and its gotten slightly worse. Denies any chest pain or shortness of breath. Denies any fevers or chills. Denies any pain in his arm. States that just feels full of fluid. States it has been draining some clear fluid as well. States he has the surgery scheduled for April [address] rodriguez. [facility] <Dr. Fidelina Holman MD - Last Filed: 04/11/25 07:06> [facility] Medical History Pain associated with prosthesis of hip joint History of transcatheter aortic valve replacement (TAVR) MRSA (methicillin resistant staph aureus) culture positive Compression fracture of L5 vertebra Compression fracture of L4 vertebra Compression fracture of L3 vertebra Compression fracture of L2 Compression fracture of L1 lumbar vertebra Wears glasses Cancer Cancer Pressure ulcer History of renal dialysis History of renal disease Injury of back History of GI bleed Gastric reflux History of stress test History of echocardiogram Cardiology follow-up encounter Acute on chronic anemia Current use of long-term anticoagulation ESRD (end stage renal disease) on dialysis Acute exacerbation of chronic heart failure Pleural effusion Knee pain Hx of sinus tachycardia Hematuria Thrombocytopenia Adenocarcinoma of esophagus Non-smoker Esophageal carcinoma Atherosclerosis of coronary artery of [place] heart without angina 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 Essential (primary) hypertension Non-rheumatic aortic stenosis Hyperlipidemia Atherosclerotic heart disease of [place] coronary artery with other forms of angina pectoris Encounter for long-term current use of high risk medication abnormal stress test Exertional chest pain Home Medications ?Medication ?Instructions ?Recorded ?Last Taken ?Type metoprolol tartrate 25 mg tablet 25 mg PO BID #0 tabs 10/25/23 03/29/25 Rx pantoprazole 40 mg tablet,delayed 40 mg PO BID #0 tabs 10/25/23 03/29/25 Rx release ferrous sulfate 325 mg (65 mg 325 mg PO DAILY #90 tabs 11/20/23 03/29/25 Rx iron) tablet polyethylene glycol 3350 17 17 g PO DAILY PRN constipation 12/04/23 Unknown History gram/dose oral powder (Miralax) ondansetron 4 mg disintegrating 4 mg PO Q8H PRN PRN nausea and 12/25/23 03/26/25 History tablet vomiting nitroglycerin 0.4 mg sublingual 0.4 mg sublingual PRN PRN angina 02/14/24 Unknown History tablet ascorbic acid (vitamin C) 500 mg 500 mg PO DAILY 03/19/25 03/29/25 History capsule fexofenadine 60 mg tablet 60 mg PO Q24H 03/19/25 03/29/25 History fluticasone propionate 50 2 spray intranasal BID PRN allergy 03/19/25 03/25/25 History mcg/actuation nasal symptoms spray,suspension montelukast 10 mg tablet 10 mg PO QHS 03/19/25 03/29/25 History olanzapine 2.5 mg tablet 2.5 mg PO QHS 03/19/25 03/29/25 History vitamin B complex-vitamin C-folic 1 tab PO DAILY 03/19/25 03/29/25 History acid 0.8 mg tablet (Nohelia-Luz) rifampin 300 mg capsule 300 mg PO BID 90 days #180 caps 03/23/25 03/29/25 Rx vancomycin 500 mg intravenous 500 mg IV .see below 40 days #18 ea 03/23/25 03/28/25 Rx solution aspirin 81 mg chewable tablet 81 mg PO BID 30 days #60 tabs 03/24/25 03/29/25 Rx oxycodone 5 mg tablet 5 mg PO Q8H PRN pain 1 day #3 tabs 03/30/25 Unknown Rx acetaminophen 500 mg tablet 1,000 mg PO Q8 PRN pain 04/08/25 Unknown History Allergy/AdvReac Type Severity Reaction Status Date / Time No Known Allergies Allergy Verified 04/08/25 06:13 Family History Father Heart disease Myocardial infarction Hypertension Brother Hypertension Sister Heart disease Myocardial infarction Surgical History History of hip surgery Hx of surgical procedure History of hip replacement (~02/2024) History of cardiac catheterization History of esophagogastroduodenoscopy (EGD) Hx of surgical procedure History of aortic valve replacement (03/03/19) History of coronary artery stent placement (12/31/18) H/O coronary artery bypass surgery (09/18/02) History of tonsillectomy History of hernia repair Social History Smoking Status: Never smoker alcohol intake: never substance use type: does not use caffeine: No what type of physical activity do you participate in: walking frequency: daily ROS <Dr. Fidelina Holman MD - Last Filed: 04/11/25 07:06> ROS ED ROS Narrative see HPI EXAM <Dr. Fidelina Holman MD - Last Filed: 04/11/25 07:06> Physical Exam Narrative Exam Narrative: Vital signs: Reviewed General: Alert and orientedx3. No acute distress. Chronically ill appearing, nontoxic. HEENT: Head is normocephalic and atraumatic, sinuses nontender, pupils equal round and reactive. Nares are patent. Oropharynx and throat exams normal. Neck: Supple without lymphadenopathy nontender Cardiovascular: Regular rate and rhythm, no murmurs. No rubs or gallops. Normal S1 and S2 Respiratory: Clear to auscultation bilaterally. No wheezes, rales, rhonchi On the left upper chest wall there is a tunneled IJ catheter that has no swelling, erythema or drainage. Abdominal: Soft and nontender. Normal bowel sounds. No guarding or rebound. Nonsurgical abdomen Extremities: There is pitting edema from the left elbow down to the fingers. There is no swelling noted to the right upper extremity. There is a palpable thrill to the fistula in the left upper extremity. Radial pulse palpable. There are a few healing suture sites that have no signs of cellulitis or abscess. There is no erythema of the arm. There is very scant amount of leaking fluid from the arm. Compartments are soft to palpation. Sensation and motor intact. No tenderness. Neurological: Cranial nerves II through XII are grossly intact. Normal strength and sensation. Normal cerebellar function The rest of the physical exam is unremarkable Const Vital Signs: 04/08/25 06:12 04/08/25 06:12 Temperature 97.3 F L Temperature Source Oral Pulse Rate 84 Respiratory Rate 18 Respiratory Effort Normal Non-Labored Respiratory Pattern Normal Blood Pressure 126/75 H Blood Pressure Mean 92 Pulse Ox 97 Oxygen Delivery Method Room Air [facility] <Dr. Fidelina Holman MD - Last Filed: 04/11/25 07:06> [facility] Narrative Medical decision making narrative: Patient is a 70-year-old male presenting to the emergency department for left upper extremity edema that has been present for chronic amount of time. Patient was seen and examined. Vitals are stable. Patient resting bed comfortably no acute distress. Physical exam seems consistent with prior ED visit on the . Patient has no infectious symptoms or exam findings that make me concerned about cellulitis or abscess. There is a good palpable thrill and distal pulse. Will obtain an ultrasound to verify no venous thrombosis or DVT. Patient has surgery planned for 15 April. At this time there is no on-call vascular surgeon. Clinical impression History & Record Review Discussion w/independent historian: Patient Additional record(s) reviewed:: Prior inpatient record and Prior ED visit Lab Data Attestation: I reviewed the patient's lab results. <Dr. Heladio Burnham DO - Last Filed: 04/08/25 11:48> [facility] Narrative Medical decision making narrative: Patient is a 70-year-old male presenting to the emergency department for left upper extremity edema that has been present for chronic amount of time. Patient was seen and examined. Vitals are stable. Patient resting bed comfortably no acute distress. Physical exam seems consistent with prior ED visit on the . Patient has no infectious symptoms or exam findings that make me concerned about cellulitis or abscess. There is a good palpable thrill and distal pulse. Will obtain an ultrasound to verify no venous thrombosis or DVT. Patient has surgery planned for 15 April. At this time there is no on-call vascular surgeon. Clinical impression Addendum Heladio Burnham DO 8:58 AM Per ultrasound fistula appears to be well working no acute findings at this point in time. Discussed this with the patient and he is advised to follow-up with Dr. Rodriguez in the outpatient setting at his scheduled appointment and return with worsening symptoms or any concerns. Patient and for members agreeable this plan all question concerns answered is discharged home in stable condition Addendum Heladio BurnhamDO 11:48 AM Patient ultrasound was officially read and showed patent left upper extremity fistula and normal velocities and no stenosis visualized Discharge Plan Triage Chief Complaint: Edema ED Provider: Fidelina Holman Dx/Rx/DC Orders Clinical Impression: HTN (hypertension), Tunneled central venous catheter present, ESRD on dialysis, Dialysis AV fistula malfunction Prescriptions: No Action ferrous sulfate 325 mg (65 mg iron) tablet 325 mg PO DAILY Qty: 90 3RF metoprolol tartrate 25 mg Tablet 25 mg PO BID Qty: 0 0RF pantoprazole 40 mg Tablet,Delayed Release (Dr/Ec) 40 mg PO BID Qty: 0 0RF polyethylene glycol 3350 [Miralax] 17 gram/dose powder 17 g PO DAILY PRN (Reason: constipation) ondansetron 4 mg tablet,disintegrating 4 mg PO Q8H PRN PRN (Reason: nausea and vomiting) fexofenadine 60 mg tablet 60 mg PO Q24H fluticasone propionate 50 mcg/actuation spray,suspension 2 spray INTRANASAL BID PRN (Reason: allergy symptoms) olanzapine 2.5 mg tablet 2.5 mg PO QHS montelukast 10 mg tablet 10 mg PO QHS Nohelia-Luz 0.8 mg tablet 1 tab PO DAILY ascorbic acid (vitamin C) 500 mg capsule 500 mg PO DAILY rifampin 300 mg Capsule 300 mg PO BID 90 Days Qty: 180 1RF vancomycin 500 mg recon soln 500 mg IV .see below 40 Days Qty: 18 0RF Rx Instructions: IV vanc 500mg dosed TuThSat with dialysis. Stop date 05/02/25. Dx: L hip PJI. Weekly bmp, cbc, LFT, vanc trough, and esr. Fax to [phone]. aspirin 81 mg Tablet,Chewable 81 mg PO BID 30 Days Qty: 60 0RF Rx Instructions: Take for 30 days postop and then okay to discontinue oxycodone 5 mg tablet 5 mg PO Q8H PRN (Reason: pain) 1 Days Qty: 3 0RF nitroglycerin 0.4 mg tablet, sublingual 0.4 mg sublingual PRN PRN (Reason: angina) acetaminophen 500 mg tablet 1,000 mg PO Q8 PRN (Reason: pain) Rx Instructions: Take Tylenol this way for 5 to 7 days postoperatively and then okay to go back and use as needed Primary Care Provider: Yaw Singh Referrals: Yaw Singh MD [Primary Care Provider, [facility]] Activity Restrictions/Additional Instructions: Follow-up with your vascular surgeon in the outpatient scheduled at your appointment. Return with worsening symptoms or other concerns. Your ultrasound did not show any acute findings here today. Print Language: Lithuanian Disposition Disposition: Home, Self Care Discharge Date/Time: 04/08/25 09:10
[2025-04-08 06:41] LABS: Hematocrit 27.0 % (40-54); Hemoglobin 8.4 g/dL (13.0-16.5); Immature Granulocytes Count 0.040 X10^3/uL (0.0-0.0); Mean Corp Hgb Conc 31.1 g/dL (32-36); Mean Corpuscular Volume 97.1 fL (80-94); Mean Platelet Vol. 8.8 fl (6.2-12.0); NRBC Flagged by Analyzer 0 % (0-5); POSITIVE DIFFERENTIAL YES; Platelet Count 189 K/mm3 (150-450); RBC Distribution Width CV 16.0 % (11.6-14.6); RBC Distribution Width SD 56.3 fl (35.1-43.9); Red Blood Count 2.78 M/mm3 (4.6-6.2); White Blood Count 4.1 K/mm3 (4.4-11.0)
--- NOTE | 2025-04-08 06:45 | RAD_ITS ---
PROCEDURE: CHEST PA AND LATERAL 04/08/2025 REASON FOR EXAM: ARM SWELLING TECHNIQUE: Procedure Code: RADCXR Modality: DX Procedure: CHEST PA AND LATERAL COMPARISON: CT chest 02/15/2024. FINDINGS: Hardware: Status post median sternotomy. A left-sided dialysis catheter terminates at the cavoatrial junction. Heart: Large cardiomegaly. Mediastinum: Unremarkable. Lungs: Large left and small right pleural effusion. Diffuse interstitial pulmonary densities. No pneumothorax. Bones: No acute bony abnormalities. RAD/Chest PA and Lateral IMPRESSION: Large left and small right pleural effusions with bilateral pulmonary opacities concerning for CHF. Reading Location: [id number]
--- OUTSIDE RECORDS SUMMARY | 2025-04-08 07:16 | XMS RPT_ITS | CCD ---
Author Organization [facility] Care Team Providers Care Physician Relations Specialist Name Role Phone KATHI BEASLEY Unavailable Unavailable CEBUL III, DANE A Unavailable Unavailable Pawa, Pratheep Unavailable Unavailable Cebul, Dane A Primary Care Provider Gilberto Ramos Primary Care Provider Gilberto Ramos DO Primary Care Provider [phone] Kirill MANNING MD, Daesung Unavailable Yeimy BAUTISTA, Luly Unavailable Unavailable Masci DO, Richard A Unavailable Ludin, [place] S Unavailable Yaw Singh MD Primary Care Provider Sena Martinez Unavailable Unavailable Masci DO, Richard A Unavailable Sena Seymour RN Unavailable Unavailable Kirill MANNING MD, Daesung Unavailable Yeimy BAUTISTA, Luly Unavailable Unavailable Masci DO, Richard A Unavailable Ludin, Haroldo S Unavailable Yaw Singh MD Primary Care Provider Ludin, [place] S Unavailable Yaw Singh MD Primary Care Provider Kirill MANNING MD, Daesung Unavailable Yeimy BAUTISTA, Luly Unavailable Unavailable Masci DO, Richard A Unavailable Ludin, Haroldo S Unavailable Yaw Singh MD Primary Care Provider Sena Seymour RN Unavailable Unavailable Dr. Yaw Singh Primary Care Provider Dr. Yaw Singh Referring Provider [facility] CHIEF ENGINEER RESEARCH, CHIEF ENGINEER RESEARCH-C Angel Donis Attending Provider Yeimy BAUTISTA, Luly Unavailable Unavailable Ludin, Haroldo S Unavailable Ludin MANNING [place] S Unavailable RICHARD JENKINS Referring Unavailable YAW [...] Unavailable Anisa RN, Maegan Phyllis Unavailable Robin GLEZN.LIFE MANAGEMENT TEACHER, Unavailable Usha Mcgovern PA-C Unavailable Rossy MANNING, [...] Azra BAUTISTA, Josue B Unavailable Unavailable Robin BOATING SAFETY OFFICER.LIFE MANAGEMENT TEACHER, Unavailable Samantha MANNING, Dr. Tidwell Primary Care Provider Manuel MANNING, Dr. Shelton Attending Provider [phone] Samantha MANNING, Dr. Tidwell Referring Provider Maggie Potter Attending Provider [phone] Robin BOATING SAFETY OFFICER.LIFE MANAGEMENT TEACHER, Unavailable Mcgovern PA-C, Usha Unavailable Mcgovern PA-C, [...] Referring Unavailable Samantha, Yaw Primary Care Unavailable [place], Nikita Attending Unavailable Manuel, Nikita Attending Unavailable [...] Yaw Referring Unavailable Mosquera, Maggie Attending Unavailable [place], Nikita Attending Unavailable Samantha, Yaw Primary Care Unavailable Mosquera, Maggie Referring Unavailable Manuel, Nikita Attending Unavailable Manuel, Nikita Consulting Unavailable Manuel, Nikita Referring Unavailable Samantha, Yaw Primary Care Unavailable [place], Nikita Consulting Unavailable [place], Nikita Referring Unavailable Samantha, Yaw Primary Care Unavailable Manuel, Nikita Attending Unavailable Haroldo Noland Attending Unavailable Samantha, Yaw Primary Care Unavailable Samantha, Yaw Referring Unavailable Samantha, Yaw Primary Care Unavailable Mosquera, Maggie Attending Unavailable River, Fidelina Attending Unavailable Samantha, Yaw Primary Care Unavailable Samantha, Yaw Primary Care Unavailable Sushant Tom Attending Unavailable Yari, Jayaprakas Referring Unavailable Samantha, Yaw Primary Care Unavailable [place], Nikita Attending Unavailable Samantha, Yaw Primary Care Unavailable Manuel, Nikita Attending Unavailable Trinh Briones Attending Unavailable Samantha, Yaw Primary Care Unavailable Yari, Jayaprakas Referring Unavailable Yari, Jayaprakas Attending Unavailable Samantha, Yaw Primary Care Unavailable [place], Nikita Referring Unavailable Samantha, Yaw Primary Care [...] Care Unavailable BOBBY BRUCE Attending Unavailable SAMANTHA, AYW A Primary Care [...] reactions to drug 4 Shortness Of Breath [place] (7 sources) Seasonal allergy Propensity to adverse reactions to substance 4 Other (See Comments) [place] (20 sources) Environmental allergies [Other] Propensity to adverse reactions 6 Other: See Comments [facility] Work Phone: (2 sources) Environmental Allergies: Uncoded Allergy to substance 3 Itching [facility] (20 sources) Seasonal allergy; Translations: [SEASONAL ALLERGIES] Allergy to substance 4 Other: See Comments [facility] Medications Current Medications Medication Drug [...] on above: Take 1 capsule by mo [facility] twice daily for 7 days. cetirizine [...] nasal spray Indications: Seasonal allergies Use 1 [place] in each nostril once daily. 1 Each [...] on above: Take 1 capsule by mo [facility] daily at bedtime. OLANZapine 2.5 mg [...] (DEFINITY) injection 1.65 mg polyethylene glycol 3350 78889 mg powder for oral solution (20 sources) [...] 2023 2:20pm End: 03-30-2023 polyethylene glycol 3350 (MD RALAX, GLYCOLAX) 17 gram/dose powder Take by [...] hours as needed for pain. Given at [facility] ER 09/10/23 01/03/2024 Discontinued (Course of [...] Fri. Weekly bmp and cbc. Fax to [phone]. Start: 10-23-2023 End: 12-04-2023 Cefazolin 2 gram recon soln Discontinued 2 g IV .see below 33 October 23, 2023 12:00am December 04, 2023 2:22pm stop date 11/25/23. Dx: strep bacteremia. cefazolin iv with dialysis: 2gm on Mon, 2gm on Wed, 3gm on Fri. Weekly bmp and cbc. Fax to [phone]. clindamycin 10 mg/ml topical lotion (12 sources) [...] 4:55pm docusate sodium 50 mg / sennosides, fdc 8.6 mg oral tablet (9 sources) Start: [...] (LASIX ORAL) Take by mouth. Given at [facility] ER 09/10/23 10/05/2023 Discontinued (Course of therapy completed) End: 10-05-2023 furosemide (LASIX ORAL) Take by mouth. Given at [facility] ER 09/10/23 0 10/05/2023 Discontinued (Course of therapy completed) furosemide (LASI X ORAL) Take by mouth. Given at [facility] ER 09/10/23 0 Active Comment on [...] on above: Take 2 tablets by mo [facility] twice daily. hydroCHLOROthiazide 25 mg oral [...] q 5min prn ches t pain nystatin [id number] unt/ml topical cream (20 sources) Polyene Antifungal [...] affected ar ea two times a day. Bodjm-2r-Umj-Epa-Fish Oil-D3 (3 sources) Start: 01-24-20 End: 12-31-19 Izber-4c-Ozc-Epa-Fis h Oil-D3 Discontinued 1 EACH PO DAILY January 23, 2014 12:00am December 30, 2020 8:31am Hfyfm-7x-Ubj-Epa-Fish Oil-D3 1 EACH capsule (9 sources) Start: 01-24-20 End: 12-31-19 take 1 capsule by mouth once daily Dnnbs-1a-Muc-Epa-Fis h Oil-D3 1 EACH capsule Discontinued 1 [...] ) 0.65 % nasal spray Use 1 [place] in the nose as needed for cold/allergy symptoms. 30 mL 1 03/17/2022 01/03/2024 Discontinued (Other) Start: 03-22-2021 End: 06-21-2022 sodium chloride 0.9 % (flush ) 10 mL (BD POSIFLUSH) Start: 03-03-2019 End: 03-07-2019 sodium chloride flush 0.9 % injection 10 mL Start: 03-03-2019 0.9 % sodium c hloride infusion Comment on above: Use 1 [place] in the n ose as needed for [...] sources) Coronary atherosclerosis; Translations: [Coronary arteriosclerosis in [place] artery] Onset: 9 03-12-2019 Chronic Comment on above: AKT-JLZ-Cjyfhv RPDA w/ 2.25 x 16 mm Promus Premier, APPLE-Distal RCA w/ 4.0 x 16 mm Promus Premier and APPLE-Mid RCA w/ 4.0 x 16 mm Promus Premier 07/23/2014; XVG-OMZ-Lgvntv SVG-D1 w/ 3.5 x 18 mm Xience [...] use of drug therapy; Translations: [Other 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 chain dyeing 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 operator (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) drug therapy] 08-12-2018 Episodic Other aftercare [...] Episodic Other aftercare (1 source) 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 T, [facility] Referring Dr.: Dr. Kody Fragoso MD Status: REG RCR Insurance: MEDICARE PART A B [facility] Discharge Summary D/C summary: It has been [...] please feel free to call me at [phone]. Thank you for the referral of this patient. Sincerely, Derrick Neves, PT, Cert MDT, OCS Balance/Gait/Functional tests Balance/Special Test Scores Oswestry Low Back Score: 30 02/05/25 0952 CC: Dr. Yaw Singh MD; Dr. Kody Fragoso MD JLA Signed Normal [facility] MR/BMS.BVSon 02-04-2025 MR/BMS.BVS [facility] Vascular Surgery [address] [place] [address]. [address] [place] [address] OFFICE VISIT Date of Service: 02/04/25 MR#: [id number] Acct: [id number] Name: JACOB LANDA Rep #: [id number] : 1955 Provider: SHEILA Becker Age/Sex: 69/M Location: [facility] Status: Signed Intake Vital Signs [...] air Intake Visit Reasons: swelling in arm Volleyball Player Required: No Accompanied by: Self Is patient [...] during dialysis. Denies pain, numbness or tingling. 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 Normal [facility] 12 Lead EKGon 01-30-2025 12 Lead EKG [facility] Cardiovascular Services [address] [place] [address] 12 Lead EKG 01/30/25 1345 MR#: [id number] Acct: [id number] Name: JACOB LANDA Rep #: [id number] : 1955 69 From: Trinh Briones MD [...] undetermined Abnormal ECG Confirmed by TRINH BRIONES ([id number]), photographic editor CYNTHIA JOHN ([id number]) on 02/02/2025 6:40:55 AM Referred By: ER Confirmed By: TRINH BRIONES 02/02/25 0640 Date Trinh Briones MD CC: Dr. Fidelina Holman MD; Dr. Yaw Singh MD Signed Normal [facility] Basic Metabolic Profile (BMP )on 01-30-2025 BUN/CRE 8.5 RATIO Low 01-26 [facility] Comment on above: Performed By: #### L 100.0100, L500.2500 ####[facility] [address] [place], [address] Calcium [Mass/Vol] 7.9 mg/dL Normal 7.6-11.0 [facility] Comment on above: Performed By: #### L 100.0100, L500.2500 ####[facility] [address] [place], [address] Chloride [Moles/Vol] 98 mmol/L Normal 98-108 [facility] Comment on above: Performed By: #### L 100.0100, L500.2500 ####[facility] [address] [place], [address] CO2 [Moles/Vol] 32.7 mmol/L High 21.0-32.0 [facility] Comment on above: Performed By: #### L 100.0100, L500.2500 ####[facility] [address] [place], [address] Creatinine [Mass/Vol] 1.65 mg/dL High 0.70-1.20 [facility] Comment on above: Performed By: #### L 100.0100, L500.2500 ####[facility] [address] [place], [address] ECRCL 41.66 ml/min Low 50-250 [facility] Comment on above: Performed By: #### L 100.0100, L500.2500 ####[facility] [address] [place], [address] GAP 9 Normal 5-15 [facility] Comment on above: Performed By: #### L 100.0100, L500.2500 ####[facility] [address] [place], [address] GFR/1.73 sq M.predicted among non-blacks MDRD (S/P/Bld) [Vol rate/Area] 44 mL/min/{1.73_m2} Low >60 [facility] Comment on above: Result Comment: mL/m in/1.73m2 CKD-EPI Creatinine Equation (2020) Performed By: #### L 100.0100, L500.2500 ####[facility] [address] [place], [address] Glucose [Mass/Vol] 82 mg/dL Normal 70-99 [facility] Comment on above: Performed By: #### L 100.0100, L500.2500 ####[facility] [address] [place], [address] Potassium [Moles/Vol] 3.4 mmol/L Normal 3.3-5.1 [facility] Comment on above: Performed By: #### L 100.0100, L500.2500 ####[facility] [address] [place], [address] Sodium [Moles/Vol] 140 mmol/L Normal 133-145 [facility] Comment on above: Performed By: #### L 100.0100, L500.2500 ####[facility] [address] [place], [address] Urea nitrogen [Mass/Vol] 14 mg/dL Normal 4-19 [facility] Comment on above: Performed By: #### L 100.0100, L500.2500 ####[facility] [address] [place], [address] CBC W/Diff, Automatedon 10-2 Absolute Lymph 0.72 X10 3/uL Low 0.83-4.51 [facility] Comment on above: Performed By: #### L 100.0100, L500.2500 ####[facility] [address] [place], [address] Absolute Neut 2.3 X10 3/uL Normal 2.0-7.7 [facility] Comment on above: Performed By: #### L 100.0100, L500.2500 ####[facility] [address] [place], [address] Basophils/100 WBC (Bld) 1.1 % High 0-1 [facility] Comment on above: Performed By: #### L 100.0100, L500.2500 ####[facility] [address] [place], [address] Eosinophils/100 WBC (Bld) 3.2 % Normal 0-5 [facility] Comment on above: Performed By: #### L 100.0100, L500.2500 ####[facility] [address] [place], [address] Erythrocyte distribution width (RBC) [Ratio] 13.5 % Normal 11.6-14.6 [facility] Comment on above: Performed By: #### L 100.0100, L500.2500 ####[facility] [address] [place], [address] Hematocrit (Bld) [Volume fraction] 33.9 % Low 40-54 [facility] Comment on above: Performed By: #### L 100.0100, L500.2500 ####[facility] [address] [place], [address] Hemoglobin (Bld) [Mass/Vol] 11.0 g/dL Low 13.0-16.5 [facility] Comment on above: Performed By: #### L 100.0100, L500.2500 ####[facility] [address] [place], [address] IG% 0.500 Normal 0.0-0.9 [facility] Comment on above: Result Comment: IG% - Immature Granulocytes (promyelocytes, myelocytes and metamyelocytes) > 1% indicates that a LEFT SHIFT is Present. Performed By: #### L 100.0100, L500.2500 ####[facility] [address] [place], [address] Lymphocytes/100 WBC (Bld) 19.3 % Normal 19-41 [facility] Comment on above: Performed By: #### L 100.0100, L500.2500 ####[facility] [address] [place], [address] MCH (RBC) [Entitic mass] 31.0 pg Normal 27.0-32.0 [facility] Comment on above: Performed By: #### L 100.0100, L500.2500 ####[facility] [address] [place], [address] MCHC (RBC) [Mass/Vol] 32.4 g/dL Normal 32-36 [facility] Comment on above: Performed By: #### L 100.0100, L500.2500 ####[facility] [address] [place], [address] MCV (RBC) [Entitic vol] 95.5 fL High 80-94 [facility] Comment on above: Performed By: #### L 100.0100, L500.2500 ####[facility] [address] [place], [address] Monocytes/100 WBC (Bld) 13.1 % High 0-10 [facility] Comment on above: Performed By: #### L 100.0100, L500.2500 ####[facility] [address] [place], [address] Neutrophils/100 WBC (Bld) 62.8 % Normal 47-70 [facility] Comment on above: Performed By: #### L 100.0100, L500.2500 ####[facility] [address] [place], [address] Nucleated RBC (Bld) [#/Vol] 0 10*3/uL Normal 0-5 [facility] Comment on above: Performed By: #### L 100.0100, L500.2500 ####[facility] [address] [place], [address] Platelet mean volume (Bld) [Entitic vol] 9.1 fL Normal 6.2-12.0 [facility] Comment on above: Performed By: #### L 100.0100, L500.2500 ####[facility] [address] [place], [address] Platelets (Bld) [#/Vol] 156 10*3/uL Normal 150-450 [facility] Comment on above: Performed By: #### L 100.0100, L500.2500 ####[facility] [address] [place], [address] RBC (Bld) [#/Vol] 3.55 10*6/uL Low 4.6-6.2 [facility] Comment on above: Performed By: #### L 100.0100, L500.2500 ####[facility] [address] [place], [address] RDW SD 47.9 fl High 35.1-43.9 [facility] Comment on above: Performed By: #### L 100.0100, L500.2500 ####[facility] [address] [place], [address] WBC (Bld) [#/Vol] 3.7 10*3/uL Low 4.4-11.0 [facility] Comment on above: Performed By: #### L 100.0100, L500.2500 ####[facility] [address] [place], [address] Emergency Department Summary on 01-30-2025 Emergency Department Summary [facility] Medical Records Department [address] [place] [address] Emergency Department Summary 01/30/25 MR#: [id number] Acct: [id number] Name: JACOB LANDA Rep #: [id number] : 1955 69 From: Fidelina Holman MD [...] diarrhea today. Denies any dysuria or hematuria. 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 Normal [facility] AV Fistula/Dialysis Graft Sc anon 01-22-2025 AV Fistula/Dialysis Graft Scan [facility] Cardiovascular Services [address] [place] [address] AV Fistula/Dialysis Graft Scan 01/22/25 1309 MR#: [id number] Acct: [id number] Name: JACOB LANDA Rep #: [id number] : 1955 69 From: Nikita Jackson MD [...] Dictated: 01/22/25 1309 Date Transcribed: 01/22/25 155 Credit Card Specialist: Signed Normal [facility] Inital Evaluation (1) - PTon 12-24-2024 Inital Evaluation (1) - PT [facility] Physical Therapy [address] [place] [address] / REHABILITATION SERVICES INITIAL EVALUATION MR#: [id number] Acct: [id number] Name: JACOB LANDA Rep #: [id number] : 1955 69 From: Derrick Neves PT, Cert. T, OCS Referring Dr.: Dr. Kody Fragoso MD Status: REG RCR Insurance: MEDICARE PART A B [facility] Patient's Visit Information Visit Information Visit Information: [...] Patient states that he went to the [facility] the same day. Patient had MRI [...] and motor (more content not included)... Normal [facility] Magnetic resonance imaging r eportOrdered By: Odilon Maldonado on 12-05-2024 Study report [facility] Imaging Services [address], [place] [id number] Spine Lumbar (Routine) MR#: [id number] Acct: [id number] Name: JACOB LANDA Rep #: [id number] : 1955 M 69 From: Magalys Maldonado MD PCP: Dr. Yaw Singh MD Status: REG CLI Study:Spine Lumbar (Routine) Date of Exam: 12/03/24 Exam# [id number] Ordering Dr: Quang Ibarra PROCEDURE: SPINE LUMBAR [...] at T12 appears more recent. Reading [facility] CC: SHEILA Coreas; Dr. Yaw Singh MD ~ Credit Card Specialist: Signed [facility] Spine Lumbar (Routine)on Spine Lumbar (Routine) [facility] Imaging Services [address] [place] [address] [id number] Spine Lumbar (Routine) MR#: [id number] Acct: [id number] Name: JACOB LANDA Rep #: [id number] : 1955 M 69 From: Odilon Maldonado MD PCP: Dr. Yaw Singh MD Status: REG CLI Study: Spine Lumbar (Routine) Date of Exam: 12/03/24 Exam# [id number] Ordering Dr: Connie Ibarra PROCEDURE: SPINE LUMBAR [...] at T12 appears more recent. Reading Location: [facility] CC: SHEILA Coreas; Dr. Yaw Singh MD Credit Card Specialist: Signed Normal [facility] Bone density reportOrdered B y: Nino Wood on 11-26-2024 Study report Skeletal system DXA [facility] Imaging Services [address] [place] [address] 924131 Dexa Bone Density Study MR#: [id number] Acct: [id number] Name: JACOB LANDA Rep #: [id number] : 1955 M 69 From: Rik Wood MD PCP: Dr. Yaw Singh MD Status: REG CLI Study:Dexa Bone Density Study Date of Exam: 11/26/24 Exam# [id number] Ordering Dr: Quang Ibarra PROCEDURE: DEXA BONE [...] Recommend follow-up as clinically warranted. Reading Location: [id number] CC: SHEILA Coreas; Dr. Yaw Singh MD ~ Credit Card Specialist: Signed [facility] Dexa Bone Density Studyon Dexa Bone Density Study [facility] Imaging Services [address] [place] [address] [id number] Dexa Bone Density Study MR#: [id number] Acct: [id number] Name: JACOB LANDA Rep #: [id number] : 1955 M 69 From: Nino porter MD PCP: Dr. Yaw Singh MD Status: REG CLI Study: Dexa Bone Density Study Date of Exam: 11/26/24 Exam# [id number] Ordering Dr: Connie Ibarra PROCEDURE: DEXA BONE [...] CC: SHEILA Coreas; Dr. Yaw Singh MD Credit Card Specialist: Signed Normal [facility] Lumbar Spine 2 or 3 Viewson 11-14-2024 Lumbar Spine 2 or 3 Views [facility] Imaging Services [address] [place] [address] [id number] Lumbar Spine 2 or 3 Views MR#: [id number] Acct: [id number] Name: JACOB LANDA Rep #: [id number] : 1955 M 69 From: Nino porter MD PCP: Dr. Yaw Singh MD Status: DEP AMB Study: Lumbar Spine 2 or 3 Views Date of Exam: Exam# [id number] Ordering Dr: Connie Ibarra PROCEDURE: LUMBAR SPINE [...] L1, L2 and L3 vertebrae. Reading Location: [id number] CC: SHEILA Coreas; Dr. 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 Part of today???s visit was documented by [...] of shamp (more content not included)... Normal [facility] Operative Reporton 5 Operative Report [facility] Medical Records Department [address] [place] [address] Operative Report 10/15/24 1434 MR#: [id number] Acct: [id number] Name: JACOB LANDA Rep #: [id number] : 1955 69 From: Nikita Jackson MD PCP: Dr. Yaw Singh MD Status:[facility] Location: [facility] Operative Report (Standard) Operative Information Date of Procedure: 10/15/24 Pre-Operative Diagnosis: End-stage renal disease currently on dialysis via left upper arm fistula Left IJ tunneled catheter no longer in use Post-Operative Diagnosis: Same Surgery/Procedure Performed: Removal left IJ tunneled catheter string studies director: No Type of Anesthesia: Local and Sedation,Conscious [...] site the patient was taken to the Sawmill Worker he was positioned prepped and draped in [...] Jackson MD; Dr. 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 Normal [facility] MR Brain WO contraston 09-08 IMPRESSION: [...] can be seen in setting of SIADH. Credit Card Specialist: MORGAN Transcribe Date/Time: Sep 08 2024 3:29P Dictated by : RICHARD DEAL MD This examination was interpreted and the report reviewed and electronically signed by: RICHARD DEAL MD on Sep 08 2024 3:43PM [facility] DIVISION OF RADIOLOGY * * *Final Report* * * DATE OF EXAM: Sep 08 2024 3:22PM [facility] 0294 - MRI BRAIN WO [...] DIVISION OF RADIOLOGY Provider, [facility] - 09/08/2024 * * *Final Report* * * DATE OF EXAM: Sep 08 2024 3:22PM [facility] 0294 - MRI BRAIN WO [...] can be seen in setting of SIADH. Credit Card Specialist: MORGAN Transcribe Date/Time: Sep 08 2024 3:29P Dictated by : RICHARD DEAL MD This examination was interpreted and the report reviewed and electronically signed by: RICHARD DEAL MD on Sep 08 2024 3:43PM EST [facility] Radiology Study observation (narrative) [facility] MR Brain WO contrastOrdered By: Ccf Provider on 09-08-2024 [facility] Surgery Visit Reporton 09-02 Surgery Visit Report [facility] 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 [facility] EMEKA Pineda 2024 [facility] Nabil PADILLA * * *Final Report* * * DATE OF EXAM: Aug 27 2024 10:32AM WRW 3882 - [facility] DIAG Nabil YORK VALERIE / PROCEDURE REASON: multiple diagnoses * * * * Physician Interpretation * * * * RESULT: [place] [address] #[id number] - [facility] EMEKA PADILLA #[id number] - [facility] [employer] BREAST LTD RT HISTORY: 69 year-old patient [...] Renetta Vazquez M.D. Electronically signed on: 08/27/2024 Credit Card Specialist: PEDRO Transcribe Date/Time: Aug 27 2024 10:05A Dictated by: RENETTA VAZQUEZ MD This examination was interpreted and the report reviewed and electronically signed by: RENETTA VAZQUEZ MD on Aug 27 2024 11:15AM EST [id number] Normal [facility] US BREAST LTD RTon 08-27 [facility] US BREAST LTD RT * * *Final Report* * * DATE OF EXAM: Aug 27 2024 10:49AM WRU 0594 - [facility] US BREAST LTD RT / PROCEDURE REASON: multiple diagnoses * * * * Physician Interpretation * * * * [place] [address] #[id number] - [facility] EMEKA PADILLA #[id number] - [facility] US BREAST LTD RT HISTORY: 69 year-old [...] Renetta Vazquez M.D. Electronically signed on: 08/27/2024 Credit Card Specialist: PEDRO Transcribe Date/Time: Aug 27 2024 10:41A Dictated by : RENETTA VAZQUEZ MD This examination was interpreted and the report reviewed and electronically signed by: RENETTA VAZQUEZ MD on Aug 27 2024 11:15AM EST [id number] Normal [facility] CNOVon 08-20-2024 CNOV Office Visit (UCWSTR ) -- JACOB LANDA ([id number]) 1955 M Date Time Provider Department 08/20/24 8:15 AM STEVE YOUSSEF [facility] During your visit today, we recorded the following information about you: Temperature Pulse Respiration Blood pressure 97.2 degrees 84/minute 16/minute 118/74 Weight 74.3 kg Steve Youssef PA-C 08/20/2024 6:42 PM Signed This note was created using MiTúter. Subjective Jacob Landa is a 69 year [...] Primary Visi (more content not included)... Normal [facility] XR LUMBAR 3V AP/LAT/L5-S1on 08-20-2024 XR [...] deformity. Recommend further evaluation with cross-sectional imaging. Credit Card Specialist: MORGAN Transcribe Date/Time: Aug 20 2024 9:13A Dictated by : GLENNY ASHTON DO This examination was interpreted and the report reviewed and electronically signed by: GLENNY ASHTON DO on Aug 20 2024 9:21AM EST [id number] Normal [facility] XR Lumbar spine 3 Viewson IMPRESSION: Possible new mild L5 superior endplate compression deformity. Recommend further evaluation with cross-sectional imaging. Credit Card Specialist: MORGAN Transcribe Date/Time: Aug 20 2024 9:13A [...] deformity. Recommend further evaluation with cross-sectional imaging. Credit Card Specialist: PSCB Transcribe Date/Time: Aug 20 2024 9:13A Dictated by : GLENNY ASHTON DO This examination was interpreted and the report reviewed and electronically signed by: GLENNY ASHTON DO on Aug 20 2024 9:21AM EST [facility] Radiology Study observation (narrative) [facility] XR Lumbar spine 3 ViewsOrder ed By: Ccf Provider on 08-20-2024 [facility] CNOVon 08-05-2024 CNOV Office Visit (UCWSTR ) -- JACOB LANDA ([id number]) 1955 M Date Time Provider Department 08/05/24 [...] kidney disease) stage 4, GFR 15-29 ml/min ([facility]) 01/03/2024 On dialysis and seeing Dr. Greenberg. Closed wedge compression fracture of T10 vertebra (HCC) 07/12/2023 Coronary 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 Seeing Dr. [...] 11/17/2020 Personal history of colonic polyps 12/27/2009 [employer]'s nodules 03/30/2023 Will try pamelor Pleural effusion [...] COLONOSCOPY W/BIOPSY SINGLE/MULTIPLE 02/22/2007 Diminutive polyp distal [id number] ECHO 01/08/2021 EGD 04/15/2020 HEART CATHETERIZATION 12/2018 [...] TONSILLECTOMY PRIMARY/SECONDARY Tonsillectomy TOT/SUB ESOPHAGECTOMY W/THORACOT 08/09/2020 [place] esophagectomy, jejunostomy tube placement TOTAL HIP REPLACEMENT Left 02/15/2024 ALLERGIES Seasona (more content not included)... Normal [facility] Surgery Visit Reporton 07-22 Surgery Visit Report [facility] [address] [place] [address]. [address] [place] [address] OFFICE VISIT Date of Service: 07/22/24 MR#: [id number] Acct: [id number] Name: JACOB LANDA Rep #: [id number] : 1955 Provider: SHEILA Becker Age/Sex: 69/M Location: [facility] Status: Signed Intake Vital Signs [...] Global Post Op Diagnoses AV fistula I77.0 [facility] Medical History Wears glasses Cancer Cancer Pressure [...] Esophageal carcinoma Atherosclerosis of coronary artery of [place] heart without angina pectoris 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 Essential (primary) hypertension Non-rheumatic aortic stenosis Syncope and collapse Hyperlipidemia Atherosclerotic heart disease of [place] coronary artery with other forms of angina [...] never sub (more content not included)... Normal [facility] B-HCG SerPl-aCncon 5 HCG.beta subunit Qn m[IU]/mL Normal <5.0 [facility] Comment on above: Order Comment: Speci men Type: BLOOD SPECIMENOrdering Facility: [facility] Address: [address] [place] [address] Performed By: #### 2 1198-7 ####[facility] LABCLIA [id number] JEAN CLAUDE GUTIERREZ [id number] [place] [address] [facility] CNOVon 06-30-2024 CNOV Office Visit (FAMPWS ) -- JACOB LANDA ([id number]) 1955 M Date Time Provider Department 06/30/24 2:00 PM [facility] During your visit today, we recorded [...] Aortic valve stenosis 07/26/2015 Ascending aorta dilation ([facility]) 09/21/2023 09/21/2023: 4.1cm Asthma BPH (benign prostatic hyperplasia) 07/20/2014 Carpal tunnel syndrome of right wrist CKD (chronic kidney disease) stage 4, GFR 15-29 ml/min ([facility]) 01/03/2024 On dialysis and seeing Dr. Greenberg. Closed wedge compression fracture of T10 vertebra ([facility]) 07/12/2023 Coronary 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 Seeing Dr. Noland DDD (degenerative disc disease), lumbar 11/04/2019 Elevated blood sugar 03/11/2024 Esophageal adenocarcinoma ([facility]) 08/09/2020 Essential hypertension, benign GERD (gastroesophageal reflux disease) 07/12/2009 History of kidney stones 07/20/2014 Iron deficiency anemia due to chronic blood loss 05/25/2020 Iron malabsorption 05/25/2020 Kidney stone Kyphosis (acquired) (postural) 07/30/[address] 03/11/2024 DPA: Lacho (step daughter) Malignant neoplasm of lower third of esophagus ([facility]) 04/15/2020 Medicare annual wellness visit, subsequent 01/13/2021 Medical B eligibilty date 03/09/19 Date of last exam 01/13/2021 Mixed hyperlipidemia MRSA (methicillin resistant Staphylococcus aureus) 12/01/2016 treated with course of Linezolid beginning 10/29/16 Nonrheumatic aortic valve disorder On tube feeding diet 08/14/2020 History: 65 year old male s/p [place] esophagectomy, Pyloromyotomy, Jejunostomy tube placement for esophageal adenocarcinoma -Diet: Isosource 1.5 to 50 cc hour with 100 cc water flushes 8 times per day and Bene protein 3 times per day Removed 11/17/2020 Personal history of colonic polyps 12/27/2009 [employer]'s nodules 03/30/2023 Will try pamelor Pleural effusion 03/11/2021 Stable in f/u studies. Pressure ulcer of unspecified buttock, stage 2 ([facility]) 01/03/2024 Bilaterally. Primary insomnia 03/30/2023 S/P CABG [...] COLONOSCOPY W/BIOPSY SINGLE/MULTIPLE 02/22/2007 Diminutive polyp distal [id number] ECHO 01/08/2021 EGD 04/15/2020 HEART CATHETERIZATION 12/2018 [...] TONSILLECTOMY PRIMARY/SECONDARY Tonsillectomy TOT/SUB ESOPHAGECTOMY W/THORACOT 08/09/2020 [place] esophagectomy, jejunostomy tube plac (more content not included)... Normal [facility] Discharge Instructionon 06-08 Discharge Instruction [facility] Medical Records Department [address] [place] [address] Instructions for Home/Discharge Instructions 06/30/24912 MR#: [id number] Acct: [id number] Name: JACOB LANDA Rep #: [id number] : 1955 69 From: Nikita Jackson MD PCP: Dr. Yaw Singh MD Status:REG [facility] Discharge Instructions Diet Discharge Diet: No restrictions [...] Care Provider: Yaw Singh Instructions Print Language: Amharic Discharge Orders/Prescriptions Prescriptions: New oxycodone 5 mg [...] CC: Dr. Yaw Singh MD Signed Normal [facility] Estradiol SerPl-mCncon 06-30 E2 [Mass/Vol] 25 pg/mL Normal <38 [facility] Comment on above: Order Comment: Speci men Type: BLOOD SPECIMENOrdering Facility: [facility] Address: [address] [place] [address] Result Comment: This test is not suitable for patients receiving treatment with the drug Fulvestrant (Faslodex). The drug causes an interference leading to falsely elevated estradiol results. Performed By: #### 2 243-4, 96884-8, 53730-9, 2842-3 ####[facility] LABCLIA [id number] [address] [place] FSH SerPl-aCncon 06-30-2024 Follitropin Qn 21.7 m[IU]/mL High 1.5-12.4 [facility] Comment on above: Order Comment: Speci men Type: BLOOD SPECIMENOrdering Facility: [facility] Address: [address] [place] [address] Performed By: #### 2 243-4, 30137-5, 99469-2, 2842-3 ####[facility] LABCLIA [id number] [address] [place] LH SerPl-aCncon 06-30-2024 Lutropin Qn 13.4 m[IU]/mL High 1.8-10.8 [facility] Comment on above: Order Comment: Speci men Type: BLOOD SPECIMENOrdering Facility: [facility] Address: [address] [place] [address] Performed By: #### 2 243-4, 58982-1, 31857-5, 2842-3 ####[facility] LABCLIA [id number] [address] [place] MR/POSTOP.ANEon 06-30-2024 MR/POSTOP.ANE [facility] Medical Records Department [address] [place] [address] Anesthesia Postop Eval I 06/30/24 0933 MR#: [id number] Acct: [id number] Name: JACOB LANDA Rep #: [id number] : 1955 69 From: Antwan Pettit CRNA PCP: Dr. Yaw Singh MD Status:REG SD Y Race: C Location: [place] [address] Anesthesia: Postop Eval I Current Vital Signs [...] completed: Yes 06/30/24934 Date Antwan Pettit CRNA [facility] Signature: Date CC: Signed Normal [facility] MR/[id number] 06-30-2024 MR/POSTOPAN2 [facility] Medical Records Department [address] [facility] [place] [address] Anesthesia Postop Eval II 06/30/24 1015 MR#: [id number] Acct: [id number] Name: JACOB LANDA Rep #: [id number] : 1955 69 From: Tawny Covington PCP: Dr. Yaw Singh MD Status:REG SDC Y Race: C Location: [place] [address] Anesthesia Postop Eval I Sum Postop Eval Completion status Anesthesia document: Postop Eval 1 completed: Yes Anesthesia Postop Eval I Summary Anesthesia Postop Eval I Summary: Anesthesia Postop Eval I: Assessment Summary Airway patent Yes 06/30/24 09:34 DISTRICT MANAGER [employer]AL [employer]ICE.PKEL Spontaneous unlabored Yes 06/30/24 09:34 DISTRICT MANAGER [employer]ICE.PKEL respirations Mental status Awake,Calm 06/30/24 09:34 DISTRICT MANAGER [employer].PKEL nausea No 06/30/24 09:34 DISTRICT MANAGER [employer]ICE.PKEL Vomiting No 06/30/24 09:34 DISTRICT MANAGER [employer]AL SERVICE.PKEL Anesthesia Postop Eval I: Fluid Summary Crystalloid volume administer 250 06/30/24 09:34 DISTRICT MANAGER [employer]AL SERVICE.PKEL (ml) Colloids volume administered ( ml) Blood Product volume administered (ml) Total IV fluid infused 250 06/30/24 09:34 DISTRICT MANAGER [employer]AL SERVICE.PKEL Anesthesia Postop Eval I: Summary Notes Anesthesia Complication Yes 06/30/24 09:34 DISTRICT MANAGER [employer]AL SERVICE.PKEL Anesthesia Complication right nares with 06/30/24 09:34 DISTRICT MANAGER [employer]AL SERVICE.PKEL Comment: epistaxis from npa Post-operative progress note Anesthesia: Postop Eval II Evaluation Mental status: Awake Pain Level: 2 nausea: No Vomiting: No 06/30/24 1016 Date Tawny Santos Signature: Date CC: Signed Normal [facility] Operative Reporton Operative Report [facility] Medical Records Department [address] [place] [address] Operative Report 06/30/24917 MR#: [id number] Acct: [id number] Name: JACOB LANDA Rep #: [id number] : 1955 69 From: Nikita Jackson MD PCP: Dr. Yaw Singh MD Status:[facility] Location: [facility] Operative Report (Standard) Operative Information Date of Procedure: 06/30/24 Pre-Operative Diagnosis: ESRD Post-Operative Diagnosis: same Surgery/Procedure Performed: left brach-ceph fistula creation string studies director: Yes Lapel Baster: Kristi Vázquez Tasks completed by farm assistant: Opening, Closing, Opening closing, Hemostasis: Tie [...] cephalic vein so he presents now for [place] fistula creation. Description of procedure: Upon obtaining [...] MD; Dr. Yaw Singh MD Signed Normal [facility] Prolactin SerPl-mCncon 06-30 Prolactin [Mass/Vol] 72.8 ng/mL High 4.1-25.1 [facility] Comment on above: Order Comment: Speci men Type: BLOOD SPECIMENOrdering Facility: [facility] Address: [address] [place] [address] Result Comment: Prol actin test is performed using the [employer] Electrochemiluminescence Immunoassay method. Results obtained with different methods or kits cannot be used interchangeably. Performed By: #### 2 243-4, 42391-4, 40437-9, 2842-3 ####[facility] LABCLIA [id number] [place] [address] [place] TSH SerPl-aCncon 06-30-2024 TSH Qn 3.100 m[IU]/L Normal 0.270-4.200 [facility] Comment on above: Order Comment: Speci men Type: BLOOD SPECIMENOrdering Facility: [facility] Address: [address] [place] [address] Performed By: #### 2 986-8, 3016-3 ####[facility] LABCLIA [id number] [place] [id number] [place] Testost SerPl-mCncon 06-30- 025 Testosterone [Mass/Vol] 436 ng/dL Normal 193-824 [facility] Comment on above: Order Comment: Speci men Type: BLOOD SPECIMENOrdering Facility: [facility] Address: [facility] [place] [address] Result Comment: A te stosterone level in the 193-320 ng/dL range with associated clinical symptoms is considered low and may indicate hypogonadism (from [facility] 2010 363:123-135). Results >320 ng/dL are considered normal. Performed By: #### 2 986-8, 3016-3 ####[facility] LABCLIA [id number] [place] [id number] [facility] John 06-20-2024 [facility] Telephone (TXCTGL) -- JACOB LANDA ([id number]) 1955 M Date Time Provider Department 06/20/24 [place] TXCTGL During your visit today, we recorded the following information about you: Hill Obrien LISW 06/20/2024 10:45 AM Signed Call placed to pt to complete the scheduled kidney transplant psychosocial evaluation. No answer. Left message requesting pt return my call. KATHERYN Dye LISW-S, [facility] Transplant Government Affairs Researcher Allergies As of Date: 06/20/2024 Noted Allergy [...] (FLONASE) 50 mcg/actuation nasal spray Use 1 [place] in each nostril once daily. - ferrous [...] (HCC) [C15.9] 08/09/2020 Coronary artery disease involving [place] crisostomo* On tube feeding diet [Z78.9] 08/14/2020 01/13/2021 AK (actinic keratosis) [L57.0] 09/07/2020 Medicare annual wellness visit, subsequent [Z00*01/13/2021 Pleural effusion [J90] 03/11/2021 Advance directive discussed with patient [Z71.8*02/09/2022 Medication management [Z79.899] 02/09/2022 Prostate disorder [N42.9] 02/09/2022 Decreased sexual desire [F52.0] 02/09/2022 [employer]'s nodules [L28.1] 03/30/2023 Primary insomnia [F51.01] 03/30/2023 Closed wedge compression fracture of T10 verteb*07/12/2023 Strain of thoracic paraspinal muscles excluding*07/30/2023 03/11/2024 Kyphosis (acquired) (postural) [M40.00] 07/30/2023 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 Normal [facility] CNCOon 06-13-2024 CNCO Letter Text Normal [facility] ACTIVATED PARTIAL THROMBOPLA STIN TIMEon 06-11-2024 aPTT Coag (PPP) [Time] 31.9 s [facility] ALGN RABBIT EPITHELIUM IGEon 06-11-2024 RABBIT EPITHELIUM CLASS Class 0 Normal Class 0 [facility] Comment on above: Order Comment: Speci men Type: BLOOD SPECIMENOrdering Facility: [facility] Address: [address] [place] [address] Performed By: #### R ABEPI ####[facility] LABCLIA [id number] [place] [address] [place] RABBIT EPITHELIUM IGE <0.35 Normal <0.35 [facility] Comment on above: Order Comment: Speci men Type: BLOOD SPECIMENOrdering Facility: [facility] Address: [address] [place] [address] Performed By: #### R ABEPI ####[facility] LABCLIA [id number] [address] BLOOD TB SCREENon 06-11-2024 M. tuberculosis tuberculin stim IFN-g Ql (Bld) Negative Normal [facility] Comment on above: Order Comment: Speci men Type: BLOOD SPECIMENOrdering Facility: [facility] Address: [address] [place] [address] Performed By: #### I NFTBP ####[facility] LABIA [id number] [place] [address] [place] MITOGEN MINUS NIL >9.98 Normal >=0.50 [facility] Comment on above: Order Comment: Speci men Type: BLOOD SPECIMENOrdering Facility: [facility] Address: [address] [place] [address] Performed By: #### I NFTBP ####[facility] [id number] [address] TB GAMMA INTERPRETATION Infection with M. tuberculosis complex is unlikely. If latent tuberculosis infection is highly suspected, a negative result does not rule out the infection. Specimens from immunocompromised patients and those <5 years of age may show false negative results. In case of a contact investigation, please repeat 8-12 weeks after a known exposure. Normal [facility] Comment on above: Order Comment: Speci men Type: BLOOD SPECIMENOrdering Facility: [facility] Address: [address] [place] [address] Performed By: #### I NFTBP ####[facility] LABIA [id number] [address] TB NIL 0.02 IU/mL Normal <=8.00 [facility] Comment on above: Order Comment: Speci men Type: BLOOD SPECIMENOrdering Facility: [facility] Address: [address] [place] [address] Performed By: #### I NFTBP ####[facility] LABIA [id number] [address] TB1 AG MINUS NIL 0.00 IU/mL Normal <0.35 [facility] Comment on above: Order Comment: Speci men Type: BLOOD SPECIMENOrdering Facility: [facility] Address: [address] [place] [address] Performed By: #### I NFTBP ####[facility]CL[facility] [id number] [address] TB2 AG MINUS NIL 0.00 IU/mL Normal <0.35 [facility] Comment on above: Order Comment: Speci men Type: BLOOD SPECIMENOrdering Facility: [facility] Address: [address] [place] [address] Performed By: #### I NFTBP ####[facility] LABIA [id number] [address] CBC panel Auto (Bld)on 06-11 Erythrocyte distribution width (RBC) [Ratio] 15.6 % High 11.5 - 15.0 % [facility] Hematocrit (Bld) [Volume fraction] 35.7 % Low 39.0 - 51.0 % [facility] Hemoglobin (Bld) [Mass/Vol] 11.3 g/dL Low 13.0 - 17.0 g/dL [facility] Interpretation and review of laboratory results Abnormal [facility] MCH (RBC) [Entitic mass] 29.9 pg 26.0 - 34.0 pg [facility] MCHC (RBC) [Mass/Vol] 31.7 g/dL 30.5 - 36.0 g/dL [facility] MCV (RBC) [Entitic vol] 94.4 fL 80.0 - 100.0 fL [facility] Nucleated RBC (Bld) [#/Vol] NINF [facility] Platelet mean volume (Bld) [Entitic vol] 10 fL 9.0 - 12.7 fL [facility] Platelets (Bld) [#/Vol] 228 10*3/uL [facility] RBC (Bld) [#/Vol] 3.78 10*6/uL Low 4.20 - 6.0 0 m/uL [facility] WBC (Bld) [#/Vol] 9.67 10*3/uL [facility] Erythrocyte distribution width (RBC) [Ratio] 15.6 % High 11.5-15.0 [facility] Comment on above: Order Comment: Speci men Type: BLOOD SPECIMENOrdering Facility: [facility] Address: [address] [place] [address] Performed By: #### 5 8410-2 ####[facility] [id number] [place] [address] [place] Hematocrit (Bld) [Volume fraction] 35.7 % Low 39.0-51.0 [facility] Comment on above: Order Comment: Speci men Type: BLOOD SPECIMENOrdering Facility: [facility] Address: [address] [place] [address] Performed By: #### 5 8410-2 ####[facility] [id number] [place] [address] [place] Hemoglobin (Bld) [Mass/Vol] 11.3 g/dL Low 13.0-17.0 [facility] Comment on above: Order Comment: Speci men Type: BLOOD SPECIMENOrdering Facility: [facility] Address: [address] [place] [address] Performed By: #### 5 8410-2 ####[facility] [id number] [place] [address] [place] MCH (RBC) [Entitic mass] 29.9 pg Normal 26.0-34.0 [facility] Comment on above: Order Comment: Speci men Type: BLOOD SPECIMENOrdering Facility: [facility] Address: [address] [place] [address] Performed By: #### 5 8410-2 ####[facility] [id number] [place] [address] [place] MCHC (RBC) [Mass/Vol] 31.7 g/dL Normal 30.5-36.0 [facility] Comment on above: Order Comment: Speci men Type: BLOOD SPECIMENOrdering Facility: [facility] Address: [address] [place] [address] Performed By: #### 5 8410-2 ####[facility] [id number] [facility] [place] [address] [place] MCV (RBC) [Entitic vol] 94.4 fL Normal 80.0-100.0 [facility] Comment on above: Order Comment: Speci men Type: BLOOD SPECIMENOrdering Facility: [facility] Address: [address] [place] [address] Performed By: #### 5 8410-2 ####[facility] [id number] [place] [address] [place] Nucleated RBC (Bld) [#/Vol] 10*3/uL Normal <0.01 [facility] Comment on above: Order Comment: Speci men Type: BLOOD SPECIMENOrdering Facility: [facility] Address: [address] [place] [address] Performed By: #### 5 8410-2 ####[facility] [id number] [place] [address] [place] Platelet mean volume (Bld) [Entitic vol] 10.0 fL Normal 9.0-12.7 [facility] Comment on above: Order Comment: Speci men Type: BLOOD SPECIMENOrdering Facility: [facility] Address: [address] [place] [address] Performed By: #### 5 8410-2 ####[facility] [id number] [place] [address] [place] Platelets (Bld) [#/Vol] 228 10*3/uL Normal 150-400 [facility] Comment on above: Order Comment: Speci men Type: BLOOD SPECIMENOrdering Facility: [facility] Address: [address] [place] [address] Performed By: #### 5 8410-2 ####[facility] [id number] [place] [address] [place] RBC (Bld) [#/Vol] 3.78 10*6/uL Low 4.20-6.00 [facility] [place] [facility] Comment on above: Order Comment: Speci men Type: BLOOD SPECIMENOrdering Facility: [facility] Address: [address] [place] [address] Performed By: #### 5 8410-2 ####[facility] [id number] [place] [address] [place] WBC (Bld) [#/Vol] 9.67 10*3/uL Normal 3.70-11.00 [facility] [place] [facility] Comment on above: Order Comment: Speci men Type: BLOOD SPECIMENOrdering Facility: [facility] Address: [address] [place] [address] Performed By: #### 5 8410-2 ####[facility] [id number] [place] [address] [place] CMV IgG Qnon 06-11-2024 CMV IGG QUAL Positive Abnormal Negative [facility] Comment on above: Order Comment: Speci men Type: BLOOD SPECIMENOrdering Facility: [facility] Address: [address] [place] [address] Result Comment: The result suggests recent or past infection with Cytomegalovirus (CMV). Positive result may also be seen due to presence of passively-transferred antibodies. Please correlate with patient's history. Performed By: #### M EASLG, 7852-7, VZVG2, 7885-7 ####[facility] [id number] [place] [address] [place] CMV IgG SerPl-aCncon 025 CMV IgG Qn >10.00 Normal [facility] Comment on above: Order Comment: Speci men Type: BLOOD SPECIMENOrdering Facility: [facility] Address: [address] [place] [address] Result Comment: The magnitude of the measured result is not indicative of the amount of antibody present. U/mL values are interpreted as follows: Negative <0.6 Equivocal 0.6 to <0.70 Positive >=0.70 Performed By: #### M EASLG, 7852-7, VZV, 7885-7 ####[facility] [id number] CLEMENTBeba GUTIERREZ [address] CNOVon 06-11-2024 CNOV Office Visit (TXCTGL ) -- JACOB LANDA ([id number]) 1955 M Date Time Provider Department 06/11/24 [...] will be scheduled for you at a [facility] facility: CARDIAC: EKG-Today Cardiac Stress Test-Will schedule after discussion with your patient accounts specialist CANCER SCREENING: PSA with Evaluation-with labs today ADDITIONAL CONSULTS Cardiology-Will need clearance from your patient accounts specialist Oncology-Will need clearance from your oncologist Imaging Studies: Nothing further Miscellaneous Items: Labs-Today Outside test results should be faxed to [phone]. Please review the kidney transplant educational materials on line at [email or web address] Sign-in: Kidney To check on your status of your evaluation, please contact your coordinator, Wendy Christian RN [phone]. Ezkeiel Shah RN Kidney/Pancreas Pre-Side Boss [facility] Referring Provider: MARIA VICTORIA SCOTT [[id number]] Allergies As of Date: 06/11/2024 Noted Allergy [...] (FLONASE) 50 mcg/actuation nasal spray Use 1 [place] in each nostril once daily. - ferrous [...] Malignant neopla (more content not included)... Normal [facility] CNOV Office Visit (TXCTGL ) -- JACOB LANDA ([id number]) 1955 M Date Time Provider Department 06/11/24 3:00 PM NEPHROLOGY [facility] TXCTGL During your visit today, we recorded the following information about you: Temperature Pulse Blood pressure Weight 98.5 degrees 93/minute 128/76 73.9 kg Height 1.778 m Grabiel Ruff MD 06/13/2024 11:56 AM Signed [facility] [place] [facility] Transplant Evaluation CC: Consultation for Kidney transplant evaluation. Referred by: Maria Victoria Scott [address] [place], [place] [address] [address] [address] I will communicate with the referring provider [...] 03/28/2024 through a TDC-plan for aVF on Sunday06/16/2024-[place] Patient presents ambulatory with cane. Does patient [...] vertebra (HCC) 07/12/2023 Coronary 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 Seeing Dr. [...] old m (more content not included)... Normal [facility] CNOV Office Visit (TXCTGL ) -- JACOB LANDA ([id number]) 1955 M Date Time Provider Department 06/11/24 2:30 PM UROLOGY [place] [facility] TXCT[facility] During your visit today, we recorded the following information about you: Temperature Pulse Blood pressure Weight 98.5 degrees 93/minute 128/76 73.9 kg Height 1.778 m Lacho Pa PA-C 06/13/2024 4:50 PM Signed [facility] [place] [facility] Transplant Evaluation CC: Consultation for Kidney transplant evaluation. Referred by: Maria Victoria Scott [id number] [address] I will communicate with the referring provider [...] and radiation with carboplatin and paclitaxel 05/2020-06/2020 [place] esophagectomy 08/09/2020 Adjuvant nivolumab DDD BPH kidney stones left hip replacement 02/15/2024. Hematology note mentions kidney biopsy in October of 2023 with acute tubular necrosis and acute tubulointerstitial nephritis-results not in CE. Pt initiated on hemodialysis 03/28/2024 through a TDC-plan for aVF on Sunday06/16/2024-[place] Patient presents ambulatory with cane. Does patient [...] (98.5 ?F) (Temporal) Ht 177.8 cm (5' 10) Wt 73.9 kg (162 lb 14.7 oz) [...] Aortic valve stenosis 07/26/2015 Ascending aorta dilation ([facility]) 09/21/2023 09/21/2023: 4.1cm Asthma BPH (benign prostatic hyperplasia) 07/20/2014 Carpal tunnel syndrome of right wrist CKD (chronic kidney disease) stage 4, GFR 15-29 ml/min ([facility]) 01/03/2024 On dialysis and seeing Dr. Greenberg. Closed wedge compression fracture of T10 vertebra ([facility]) 07/12/2023 Coronary 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 Seeing Dr. Noland DDD (degenerative disc disease), lumbar 11/04/2019 Elevated blood sugar 03/11/2024 Esophageal adenocarcinoma ([facility]) 08/09/2020 Essential hypertension, benign GERD (gastroesophageal reflux disease) 07/12/2009 History of kidney stones 07/20/2014 Iron deficiency anemia due to chronic blood loss 05/25/2020 Iron malabsorption 05/25/2020 Kidney stone Kyphosis (acquired) (postural) 07/30/[address] 03/11/2024 DPA: Lacho (step daughter) Malignant neoplasm of lower third of esophagus ([facility]) 04/15/2020 Medicare annual wellness visit, subsequent 01/13/2021 Medical B eligibilty date 03/09/19 Date of last exam 01/13/2021 Mixed hyperlipidemia MRSA (methicillin resistant Staphylococcus aureus) 12/01/2016 treated with course of Linezolid beginning 10/29/16 Nonrheumatic aortic valve disorder On tube feeding diet 08/14/2020 History: 65 year old male s/p [place] esophagectomy, Pyloromyotomy, Jejunostomy tube placement for esophageal adenocarcinoma -Diet: Isosource 1.5 to 50 cc hour with 100 cc water flushes 8 times per day and Bene protein 3 times per day Removed 11/17/2020 Personal history of colonic polyps 12/27/2009 [employer]'s nodules 03/30/2023 Will try pamelor Pleural effusion 03/11/2021 Stable in f/u studies. Pressure ulcer of unspecified buttock, stage 2 ([facility]) 01/03/2024 Bilaterally. 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 4 07/23/2017 S/P TAVR (transc (more content not included)... Normal [facility] CNOV Office Visit (TXCTGL ) -- JACOB LANDA ([id number]) 1955 M Date Time Provider Department 06/11/24 2:00 PM KIDNEY TXP COORDINATORS TXCTGL During your visit today, we recorded the following information about you: Referring Provider: MARIA VICTORIA SCOTT [[id number]] Allergies As of Date: 06/11/2024 Noted Allergy [...] (FLONASE) 50 mcg/actuation nasal spray Use 1 [place] in each nostril once daily. - ferrous [...] (HCC) [C15.9] 08/09/2020 Coronary artery disease involving [place] crisostomo* On tube feeding diet [Z78.9] 08/14/2020 01/13/2021 AK (actinic keratosis) [L57.0] 09/07/2020 Medicare annual wellness visit, subsequent [Z00*01/13/2021 Pleural effusion [J90] 03/11/2021 Advance directive discussed with patient [Z71.8*02/09/2022 Medication management [Z79.899] 02/09/2022 Prostate disorder [N42.9] 02/09/2022 Decreased sexual desire [F52.0] 02/09/2022 [employer]'s nodules [L28.1] 03/30/2023 Primary insomnia [F51.01] 03/30/2023 [...] (transcatheter a (more content not included)... Normal [facility] CNOV Office Visit (TXCTGL ) -- JACOB LANDA ([id number]) 1955 M Date Time Provider Department 06/11/24 [...] [facility]; a copy of the [...] about Kidney Allocation Policy -Directions to access [facility]'s data through the [facility] website. -Informed Consent for Transplant Program Participation patient education packet -National Kidney Registry pamphlet -Covid-19 Vaccination for Transplant Candidates Method of Instruction: Group class instruction Written instruction/Handouts Verbal instruction Patient/Family Response: Patient asked appropriate questions, which were answered satisfactorily. Follow-Up Plan: Complete - No need for follow-up Referral/Recommendation: None Rober Iglesias RN Pre-Side Boss Referring Provider: MAULIK ARANDA [[id number]] Allergies As of Date: 06/11/2024 Noted Allergy [...] (FLONASE) 50 mcg/actuation nasal spray Use 1 [place] in each nostril once daily. - ferrous [...] of b (more content not included)... Normal [facility] Comprehensive metabolic 2000 panelon 06-11-2024 Albumin [Mass/Vol] 4.0 g/dL Normal 3.9-4.9 [facility] Comment on above: Order Comment: Speci men Type: BLOOD SPECIMENOrdering Facility: [facility] Address: [address] [place] [address] Performed By: #### 2 4323-8, 2777-1, 01747-3 ####[facility] [id number] [place] [address] [place] ALP [Catalytic activity/Vol] 119 U/L High 38-113 [facility] Comment on above: Order Comment: Speci men Type: BLOOD SPECIMENOrdering Facility: [facility] Address: [address] [place] [address] Performed By: #### 2 4323-8, 2777-1, 07483-9 ####[facility] [id number] [address] [address] [place] ALT [Catalytic activity/Vol] 17 U/L Normal 10-54 [facility] Comment on above: Order Comment: Speci men Type: BLOOD SPECIMENOrdering Facility: [facility] Address: [address] [place] [address] Performed By: #### 2 4323-8, 277-1, 39273-9 ####[facility] [id number] [place] [id number] [place] Anion gap [Moles/Vol] 14 mmol/L Normal 8-15 [facility] Comment on above: Order Comment: Speci men Type: BLOOD SPECIMENOrdering Facility: [facility] Address: [address] [place] [address] Performed By: #### 2 4323-8, 277-, 02504-3 ####[facility] [id number] [place] [address] [place] AST [Catalytic activity/Vol] 18 U/L Normal 14-40 [facility] Comment on above: Order Comment: Speci men Type: BLOOD SPECIMENOrdering Facility: [facility] Address: [address] [place] [address] Performed By: #### 2 4323-8, 277-, 59682-5 ####[facility] [id number] [address] [address] [place] Bilirubin [Mass/Vol] 0.6 mg/dL Normal 0.2-1.3 [facility] Comment on above: Order Comment: Speci men Type: BLOOD SPECIMENOrdering Facility: [facility] Address: [address] [place] [address] Performed By: #### 2 4323-8, 2777-1, 37388-6 ####[facility] [id number] [address] [address] [place] Calcium [Mass/Vol] 9.5 mg/dL Normal 8.5-10.2 [facility] Comment on above: Order Comment: Speci men Type: BLOOD SPECIMENOrdering Facility: [facility] Address: [address] [place] [address] Performed By: #### 2 4323-8, 2777-1, 50487-5 ####[facility] [id number] [address] [address] [place] Chloride [Moles/Vol] 97 mmol/L Low 98-107 [facility] Comment on above: Order Comment: Speci men Type: BLOOD SPECIMENOrdering Facility: [facility] Address: [address] [place] [address] Performed By: #### 2 4323-8, 2777-1, 21426-7 ####[facility] [id number] [place] [id number] [place] CO2 [Moles/Vol] 28 mmol/L Normal 22-30 [facility] Comment on above: Order Comment: Speci men Type: BLOOD SPECIMENOrdering Facility: [facility] Address: [address] [place] [address] Performed By: #### 2 4323-8, 2777-1, 49428-5 ####[facility] [id number] [address] [address] [place] Creatinine [Mass/Vol] 3.22 mg/dL High 0.73-1.22 [facility] Comment on above: Order Comment: Speci men Type: BLOOD SPECIMENOrdering Facility: [facility] Address: [address] [place] [address] Performed By: #### 2 4323-8, 2777-1, 24769-5 ####[facility] [id number] [address] [address] [place] Creatinine and Glomerular filtration rate.predicted panel (S/P/Bld) 20 mL/min/1.73m??? Low >=60 [facility] Comment on above: Order Comment: Ehsan nunes Type: BLOOD SPECIMENOrdering Facility: [facility] Address: [address] [place] [address] Result Comment: Aurora mated Glomerular Filtration Rate [...] GFR. Performed By: #### 2 4323-8, 2777-1, 25812-8 ####[facility] [id number] [place] [id number] [place] Glucose [Mass/Vol] 84 mg/dL Normal 74-99 [facility] Comment on above: Order Comment: Ehsan nunes Type: BLOOD SPECIMENOrdering Facility: [facility] Address: [address] [place] [address] Result Comment: The [place] Diabetes Association (ADA) provides guidance for cutoff [...] Standards of Medical Care in Diabetes 2016, [place] Diabetes Association. Diabetes Care. 2016.39(Suppl 1). Performed By: #### 2 4323-8, 2777-1, 67900-1 ####[facility] [id number] [place] [id number] [place] Potassium [Moles/Vol] 3.9 mmol/L Normal 3.7-5.1 [facility] Comment on above: Order Comment: Speci men Type: BLOOD SPECIMENOrdering Facility: [facility] Address: [address] [place] [address] Performed By: #### 2 4323-8, 2777-1, 05638-4 ####[facility] [id number] [address] [address] [place] Protein [Mass/Vol] 8.1 g/dL High 6.3-8.0 [facility] Comment on above: Order Comment: Speci men Type: BLOOD SPECIMENOrdering Facility: [facility] Address: [address] [place] [address] Performed By: #### 2 4323-8, 2777-1, 49094-2 ####[facility] [id number] [address] [address] [place] Sodium [Moles/Vol] 139 mmol/L Normal 136-144 [facility] Comment on above: Order Comment: Speci men Type: BLOOD SPECIMENOrdering Facility: [facility] Address: [address] [place] [address] Performed By: #### 2 4323-8, 2777-1, 08877-5 ####[facility] [id number] [address] [address] [place] Urea nitrogen [Mass/Vol] 32 mg/dL High 9-24 [facility] Comment on above: Order Comment: Speci men Type: BLOOD SPECIMENOrdering Facility: [facility] Address: [address] [place], [place] [address] Performed By: #### 2 4323-8, 2777-1, 27512-9 ####[facility] [id number] [address] [place] [address] [place] EBV capsid IgG Qn (S)on EBV VCA IGG, QUAL Positive Abnormal Negative [facility] Comment on above: Order Comment: Speci men Type: BLOOD SPECIMENOrdering Facility: [facility] Address: [address] [place] [address] Result Comment: The result suggests recent or past EBV infection. The final interpretation should be done in the context of other EBV serology panel results. Performed By: #### M EASLG, 7852-7, VZVG2, 7885-7 ####[facility] [id number] [address] [place] ECG COMPLETEon 06-11-2024 ECG COMPLETE Ventricular Rate : 8 2 BPM Atrial Rate : 82 BPM P-R Interval : 134 ms QRS Duration : 94 ms Q-T Interval : 386 ms QTC Calculation(Bazett) : 450 ms Calculated P [place] : 7 degrees Calculated R [place] : 22 degrees Calculated T [place] : 35 degrees SINUS RHYTHM WITH OCCASIONAL PREMATURE VENTRICULAR COMPLEXES NONSPECIFIC T WAVE ABNORMALITY ABNORMAL ECG Confirmed by DAYANA HANCOCK MD ([id number]) on 06/28/2024 6:10:15 PM NAME : JACOB LANDA PID : [id number] : 1955 Gender : Male Race : ORD : [id number] Procedure Date : Jun 11 2024 15:54:10 Edit Date : Jun 28 2024 18:10:19 Diagnosis: SINUS RHYTHM WITH OCCASIONAL PREMATURE VENTRICULAR COMPLEXES NONSPECIFIC T WAVE ABNORMALITY ABNORMAL ECG Confirmed by DAYANA HANCOCK MD ([id number]) on 06/28/2024 6:10:15 PM Test Reason : Location : [facility] : [facility] Overread By : DAYANA HANCOCK MD Edited By : DAYANA HANCOCK MD Referred By : GRABIEL RUFF Acquired by : FAIZAN BARROSO Normal [facility] Free PSA [Mass/Vol]on 2024 Free PSA/Total PSA [Mass fraction] 39 % Normal [facility] Comment on above: Order Comment: Speci men Type: BLOOD SPECIMENOrdering Facility: [facility] Address: [address] [place] [address] Result Comment: Tota l and free PSA test methodology used is the Electrochemiluminescence Immunoassay by [email or web address]. Total or free PSA values by differing [...] 15.8% Performed By: #### 2 4323-8, 2777-1, 11155-0 ####[facility] [id number] [address] [address] [place] Prostate specific Ag [Mass/Vol] 1.60 ng/mL Normal <2.60 [facility] Comment on above: Order Comment: Speci men Type: BLOOD SPECIMENOrdering Facility: [facility] Address: [address] [place] [address] Result Comment: Tota l PSA test methodology used is the Electrochemiluminescence Immunoassay by [employer]. Total PSA values by differing methodologies cannot be interchanged. Performed By: #### 2 4323-8, 2777-1, 20992-0 ####[facility] [id number] [address] [address] [place] HBV core Ab Ser Qlon 025 HBV core Ab Ql (S) Negative Normal Negative [facility] Comment on above: Order Comment: Speci men Type: BLOOD SPECIMENOrdering Facility: [facility] Address: [address] [place] [address] Result Comment: No e vidence of current or past infection with Hepatitis B virus. Should recent infection be suspected, repeat testing may be considered 3-4 weeks after this draw. Performed By: #### 5 195-3, 93131-1, 37995-2, 71228-0 ####[facility] [id number] [address] [address] [place] HBV surface Ab Ql (S)on HBV surface Ab Qn (S) <8.00 Normal [facility] Comment on above: Order Comment: Speci men Type: BLOOD SPECIMENOrdering Facility: [facility] Address: [address] [place] [address] Result Comment: <8 m IU/mL: No serological evidence of immunity to Hepatitis B Virus. >/= 8 to <12 mIU/mL: No serological evidence of immunity to Hepatitis B Virus. >/= 12 mIU/mL: Consistent with serological evidence of immunity to Hepatitis B Virus. Performed By: #### 5 195-3, 92108-9, 51817-0, 41978-6 ####[facility] [id number] [address] [place] HBV surface Ab Ser Qlon HBV surface Ab Ql (S) Negative Normal [facility] Comment on above: Order Comment: Speci men Type: BLOOD SPECIMENOrdering Facility: [facility] Address: [address] [place] [address] Result Comment: No s erological evidence of immunity to Hepatitis B Virus. Performed By: #### 5 195-3, 25403-7, 89387-3, 57153-7 ####[facility] [id number] [place] [address] [place] HBV surface Ag Ser Qlon HBV surface Ag Ql (S) Negative Normal Negative [facility] Comment on above: Order Comment: Speci men Type: BLOOD SPECIMENOrdering Facility: [facility] Address: [address] [place] [address] Performed By: #### 5 195-3, 63789-1, 63727-7, 31319-3 ####[facility] [id number] [place] [address] [place] HCV Ab Ser Qlon 06-11-2024 HCV Ab Ql (S) Negative Normal Negative [facility] Comment on above: Order Comment: Speci men Type: BLOOD SPECIMENOrdering Facility: [facility] Address: [address] [place] [address] Result Comment: The result suggests no evidence of active infection with Hepatitis C virus. Should recent infection be suspected, repeat testing may be considered 4-6 weeks after this draw. Performed By: #### 1 6128-1 ####[facility] [id number] [place] [address] [place] HEPATITIS A ANTIBODY, IGGon 06-11-2024 HAV IgG Ql (S) Negative Normal [facility] Comment on above: Order Comment: Speci men Type: BLOOD SPECIMENOrdering Facility: [facility] Address: [address] [place] [address] Result Comment: No s erological evidence of immunity to Hepatitis A Virus. Performed By: #### A HAVG, 17634-5 ####[facility] [id number] [place] [address] [place] HIV 1+2 Ab IA Qlon HIV 1 and 2 Ab IA.rapid Nom (S/P/Bld) Normal [facility] Comment on above: Order Comment: Speci men Type: BLOOD SPECIMENOrdering Facility: [facility] Address: [address] [place] [address] Result Comment: Test not indicated. Performed By: #### 5 195-3, 76769-0, 51247-1, 74959-4 ####[facility] [id number] [place] [address] [place] HIV 1+2 Ab+HIV1 p24 Ag IA Ql Non-Reactive Normal Nonreactive [facility] Comment on above: Order Comment: Speci men Type: BLOOD SPECIMENOrdering Facility: [facility] Address: [address] [place] [address] Performed By: #### 5 195-3, 74246-9, 21197-8, 74974-2 ####[facility] [id number] [place] HIV immunoassay testing algorithm interpretation (S/P/Bld) [Interp] Normal [facility] Comment on above: Order Comment: Speci men Type: BLOOD SPECIMENOrdering Facility: [facility] Address: [address] [place] [address] Result Comment: No e vidence of HIV-1 [...] or diagnoses. Performed By: #### 5 195-3, 78521-3, 73801-5, 96224-8 ####[facility] [id number] [place] [address] [place] KID K/P PANC REC INIT W/Uon 06-11-2024 ALLOGEN RESULTS TO FOLLOW See Allogen report to follow Normal [facility] Comment on above: Order Comment: Speci men Type: BLOOD SPECIMENOrdering Facility: [facility] Address: [address] [place] [address] Performed By: #### K PRIPW ####[facility] [id number] [address] [place] No Panel Informationon 06-11 Interpretation and review of laboratory results Normal [facility] PT panel Coag (PPP)on 2024 INR Coag (PPP) [Relative time] 1.2 {INR} 0.9 - 1.3 [facility] Comment on above: Vitamin K Antagonist (VKA) Therapeutic Range: INR 2 to 3 (Target INR of 2.5) Note: For patients treated with VKA drugs, such as warfarin, the [employer] 2012 Guideline recommends [...] Chest 2012, 141:7S-47S Rose SULLIVAN et mar. [facility] 2017, 70: 252-289 PT Coag (PPP) [Time] 12.6 s [facility] INR Coag (PPP) [Relative time] 1.2 {INR} Normal 0.9-1.3 [facility] Comment on above: Order Comment: Speci men Type: BLOOD SPECIMENOrdering Facility: [facility] Address: [address] [place] [address] Result Comment: Saadia min K Antagonist (VKA) Therapeutic Range: INR 2 to 3 (Target INR of 2.5) Note: For patients treated with VKA drugs, such as warfarin, the [employer] 2012 Guideline recommends [...] Chest 2012, 141:7S-47S Rose SULLIVAN et al. [facility] 2017, 70: 252-289 Performed By: #### 3 4528-0, 37356-3 ####[facility] [id number] [address] OF [place] PT Coag (PPP) [Time] 12.6 s Normal 9.7-13.0 [facility] Comment on above: Order Comment: Speci men Type: BLOOD SPECIMENOrdering Facility: [facility] Address: [address] [place] [address] Performed By: #### 3 4528-0, 09716-0 ####[facility] LABIA [id number] [address] [place] PTH-Intact SerPl-mCncon 03-0 Parathyrin.intact [Mass/Vol] 124 pg/mL High 15-65 [facility] Comment on above: Order Comment: Speci men Type: BLOOD SPECIMENOrdering Facility: [facility] Address: [address] [place] [address] Performed By: #### 2 731-8 ####[facility] [id number] [place] [address] [place] Phosphate SerPl-mCncon 06-11 Phosphate [Mass/Vol] 3.9 mg/dL Normal 2.7-4.8 [facility] Comment on above: Order Comment: Speci men Type: BLOOD SPECIMENOrdering Facility: [facility] Address: [address] [place] [address] Performed By: #### 2 4323-8, 2777-1, 83168-3 ####[facility] [id number] [address] [place] RUBEOLA (MEASLES)IGGon 06-11 MEASLES IGG AB, QUAL Positive Normal Positive [facility] Comment on above: Order Comment: Speci men Type: BLOOD SPECIMENOrdering Facility: [facility] Address: [address] [place] [address] Result Comment: The result suggests recent or past exposure to Measles virus or Measles vaccination. The current test does not detect neutralizing antibodies. Positive result may also be seen due to presence of passively-transferred antibodies. Please correlate with patient's history. Performed By: #### M EASLG, 7852-7, VZVG2, 7885-7 ####[facility] [id number] [place] [address] [place] Reagin and Treponema pallidu m IgG and IgM [Interp]on 06-11-2024 T. pallidum IgG+IgM IA Ql (S) Non-Reactive Normal Nonreactive [facility] Comment on above: Order Comment: Speci men Type: BLOOD SPECIMENOrdering Facility: [facility] Address: [address] [place] [address] Performed By: #### A HARDYG, 90427-3 ####[facility] [id number] [place] [address] [place] Reagin+T pallidum IgG+IgM Se rPl-Impon 06-11-2024 Reagin and Treponema pallidum IgG and IgM [Interp] Cannot exclude recent Treponemal infection if specimen collected within 7-10 days after appearance of suspect lesions or 2-3 weeks after an exposure. Clinical correlation is required. Normal [facility] Comment on above: Order Comment: Speci men Type: BLOOD SPECIMENOrdering Facility: [facility] Address: [address] [place] [address] Performed By: #### A HARDYG, 90729-3 ####[facility]CL[facility] [id number] [place] [address] [place] STRONGYLOIDES IGG BLon 06-11 STRONGYLOIDES IGG QUALITATIVE Negative Normal Negative [facility] Comment on above: Order Comment: Speci men Type: BLOOD SPECIMENOrdering Facility: [facility] Address: [address] [place] [address] Performed By: #### S TRSER ####[facility] [id number] [place] [address] [place] TRANSPLANT CONFIRM ABO/RHon 06-11-2024 ABO A Normal [facility] Comment on above: Order Comment: Speci men Type: BLOOD SPECIMENOrdering Facility: [facility] Address: [address] [place] [address] Performed By: #### T RCABO ####[facility] BLOOD BANKCLIA [id number] [place] [id number] [place] Rh Nom (Bld) Positive Normal [facility] Comment on above: Order Comment: Speci men Type: BLOOD SPECIMENOrdering Facility: [facility] Address: [address] [place] [address] Performed By: #### T RCABO ####[facility] BLOOD BANKCLIA [id number] [place] [address] [place] TYPE + SCREENon 06-11-2024 ABO A Normal [facility] Comment on above: Order Comment: Speci men Type: BLOOD SPECIMENOrdering Facility: [facility] Address: [address] [place] [address] Performed By: #### T SCR ####[facility] BLOOD BANKCLIA [id number] [place] [address] [place] Rh Nom (Bld) Positive Normal [facility] Comment on above: Order Comment: Speci men Type: BLOOD SPECIMENOrdering Facility: [facility] Address: [address] [place] [address] Performed By: #### T SCR ####[facility] BLOOD BANKCLIA [id number] [place] [address] [place] TYPE AND SCREEN EXPIRATION 06/14/2024 23:59 Normal [facility] Comment on above: Order Comment: Speci men Type: BLOOD SPECIMENOrdering Facility: [facility] Address: [address] [place] [address] Performed By: #### T SCR ####[facility] BLOOD BANKCLIA [id number] [place] [id number] [place] VARICELLA ZOSTER IGGon 06-11 VARICELLA ZOSTER IGG, QUAL Positive Normal Positive [facility] Comment on above: Order Comment: hEsan nunes Type: BLOOD SPECIMENOrdering Facility: [facility] Address: [address] [place] [address] Result Comment: The result suggests recent or past exposure to Varicella-Zoster virus or chickenpox vaccination or zoster vaccination. Positive result may also be seen due to presence of passively-transferred antibodies. Please correlate with patient's history. Performed By: #### M EASLG, 7852-7, VZVG2, 7885-7 ####[facility] [id number] [place] [address] [place] aPTT Coag (PPP) [...] laboratory APTT reagent in use throughout the [facility]. [facility] aPTT PPPon 06-11-2024 aPTT Coag (PPP) [Time] 31.9 s Normal 23.0-32.4 [facility] Comment on above: Order Comment: Ehsan nunes Type: BLOOD SPECIMENOrdering Facility: [facility] Address: [address] [place] [address] Performed By: #### 3 4528-0, 14666-6 ####[facility] [id number] [address] [place] BUN/creatinine ratioOrdered By: Nikita Jackson on 06-06-2024 Urea nitrogen/Creatinine [Mass ratio] 10.6 mg/mg 10-20 [facility] Basic Metabolic Profile (BMP )on 06-06-2024 Anion gap [Moles/Vol] 11 mmol/L Normal 5-15 [facility] Comment on above: Performed By: #### L 500.2500, L100.0500 ####[facility] [address] [place], [address] BUN/CRE 10.6 RATIO Normal 10-20 [facility] Comment on above: Performed By: #### L 500.2500, L100.0500 ####[facility] [address] [place], [address] Calcium [Mass/Vol] 9.1 mg/dL Normal 7.6-11.0 [facility] Comment on above: Performed By: #### L 500.2500, L100.0500 ####[facility] [address] [place], [address] Chloride [Moles/Vol] 98 mmol/L Normal 96-108 [facility] Comment on above: Performed By: #### L 500.2500, L100.0500 ####[facility] [address] [place], [address]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 5 7021-8, 77088-8 ####[facility] CENTERGIANAST. [facility]OR[facility] [id number] [place] [address] [place] MCV (RBC) [Entitic vol] 91.2 fL Normal 80.0-100.0 [facility] Comment on above: Order Comment: Speci men Type: BLOOD SPECIMENOrdering Facility: [facility] Address: [address] [place] [address] Performed By: #### 5 7021-8, 12701-4 ####[facility] HOSPITALA [id number] [place] [address] [place] Monocytes (Bld) [#/Vol] 0.48 10*3/uL Normal <0.87 [facility] Comment on above: Order Comment: Speci men Type: BLOOD SPECIMENOrdering Facility: [facility] Address: [address] [place] [address] Performed By: #### 5 7021-8, 11769-3 ####[facility] CENTERNCLIA [id number] [place] [address] [place] Monocytes/100 WBC (Bld) 7.8 % Normal [facility] Comment on above: Order Comment: Speci men Type: BLOOD SPECIMENOrdering Facility: [facility] Address: [address] [place] [address] Performed By: #### 5 7021-8, 77632-8 ####[facility] MILLTOWNCLIA [id number] [place] [address] [place] Neutrophils (Bld) [#/Vol] 4.70 10*3/uL Normal 1.45-7.50 [facility] Comment on above: Order Comment: Speci men Type: BLOOD SPECIMENOrdering Facility: [facility] Address: [address] [place] [address] Performed By: #### 5 7021-8, 98675-5 ####[facility] SPRINGSWNCLIA [id number] [place] [address] [place] Neutrophils/100 WBC (Bld) 76.4 % Normal [facility] Comment on above: Order Comment: Speci men Type: BLOOD SPECIMENOrdering Facility: [facility] Address: [address] [place] [address] Performed By: #### 5 7021-8, 16695-3 ####[facility]ICAL CENTERLIA [id number] [place] [address] [place] Nucleated RBC (Bld) [#/Vol] 10*3/uL Normal <0.01 [facility] Comment on above: Order Comment: Speci men Type: BLOOD SPECIMENOrdering Facility: [facility] Address: [address] [place] [address] Performed By: #### 5 7021-8, 56465-8 ####[facility] SPRINGSWNCLIA [id number] [place] [address] [place] Nucleated RBC/100 WBC (Bld) [Ratio] 0.0 /100 WBC Normal [facility] Comment on above: Order Comment: Speci men Type: BLOOD SPECIMENOrdering Facility: [facility] Address: [address] [place] [address] Performed By: #### 5 7021-8, 18256-8 ####[facility] CENTERNCLIA [id number] [place] [address] [place] Platelet mean volume (Bld) [Entitic vol] 9.6 fL Normal 9.0-12.7 [facility] Comment on above: Order Comment: Speci men Type: BLOOD SPECIMENOrdering Facility: [facility] Address: [address] [place] [address] Performed By: #### 5 7021-8, 14749-5 ####[facility] CENTERAMANDAA [id number] [place] [address] [place] Platelets (Bld) [#/Vol] 185 10*3/uL Normal 150-400 [facility] Comment on above: Order Comment: Speci men Type: BLOOD SPECIMENOrdering Facility: [facility] Address: [address] [place] [address] Performed By: #### 5 7021-8, 91911-6 ####[facility] CENTERAMANDAA [id number] [place] [address] [place] RBC (Bld) [#/Vol] 4.98 10*6/uL Normal 4.20-6.00 [facility] Comment on above: Order Comment: Speci men Type: BLOOD SPECIMENOrdering Facility: [facility] Address: [address] [place] [address] Performed By: #### 5 7021-8, 54048-5 ####[facility] CENTERAMANDAA [id number] [place] [address] [place] WBC (Bld) [#/Vol] 6.16 10*3/uL Normal 3.70-11.00 [facility] Comment on above: Order Comment: Speci men Type: BLOOD SPECIMENOrdering Facility: [facility] Address: [address] [place] [address] Performed By: #### 5 7021-8, 68317-6 ####[facility] CENTERGIANALIA [id number] [place] [id number] [place] COPPER BLOODon 04-17-2024 Copper [Mass/Vol] 124 ug/dL Normal 70-140 [facility] Comment on above: Order Comment: Speci men Type: BLOOD SPECIMENOrdering Facility: [facility] Address: [address] [place] [address] Result Comment: This test was developed, and its performance characteristics determined by the [facility] Department of Pathology and Laboratory Medicine. It has not been cleared or approved by the FDA. The [facility] Department of Pathology and Laboratory Medicine is regulated under CLIA as qualified to perform high-complexity testing. This test is used for clinical purposes. It should not be regarded as investigational or for research. Performed By: #### C OPPER ####[facility] LABCLIA [id number] [place] [address] [place] [address] ABD/PEL WO [...] or metastasis in the abdomen and pelvis. Credit Card Specialist: MORGAN Transcribe Date/Time: Apr 19 2024 7:52P Dictated by : TONNY SAINI MD This examination was interpreted and the report reviewed and electronically signed by: TONNY SAINI MD on Apr 19 2024 7:58PM EST [id number] Normal [facility] CT CHEST WO IVCONon 04-17-19 CT [...] pathological compression fracture with superior endplate defects. Credit Card Specialist: [facility] Transcribe Date/Time: Apr 19 2024 7:33P Dictated by : TONNY SAINI MD This examination was interpreted and the report reviewed and electronically signed by: TONNY SIANI MD on Apr 19 2024 7:52PM EST [id number] Normal [facility] Comprehensive metabolic 2000 panelon 04-17-2024 Albumin [Mass/Vol] 3.9 g/dL Normal 3.9-4.9 [facility] Comment on above: Order Comment: Ehsan nunes Type: BLOOD SPECIMENOrdering Facility: [facility] Address: [address] [place] [address] Performed By: #### 1 9123-9, 61175-3 ####[facility] [id number] [place] [address] [place] ALP [Catalytic activity/Vol] 116 U/L High 38-113 [facility] Comment on above: Order Comment: Ehsan nunes Type: BLOOD SPECIMENOrdering Facility: [facility] Address: [address] [place], [place] [address] Performed By: #### 1 9123-9, 26343-2 ####[facility] ANETTE CARILIA [id number] [address] STATES OF [facility] ALT [Catalytic activity/Vol] 35 U/L Normal 10-54 [facility] Comment on above: Order Comment: Speci men Type: BLOOD SPECIMENOrdering Facility: [facility] Address: [address] [place] [address] Performed By: #### 1 9123-9, 54993-1 ####[facility] BLANCAORFORDNCREMIA [id number] [place] [address] [place] Anion gap [Moles/Vol] 11 mmol/L Normal 8-15 [facility] Comment on above: Order Comment: Speci men Type: BLOOD SPECIMENOrdering Facility: [facility] Address: [address] [place] [address] Performed By: #### 1 9123-9, 81255-8 ####[facility] CENTERNCLIA [id number] [address] [place] AST [Catalytic activity/Vol] 27 U/L Normal 14-40 [facility] Comment on above: Order Comment: Speci men Type: BLOOD SPECIMENOrdering Facility: [facility] Address: [address] [place] [address] Performed By: #### 1 9123-9, 95931-9 ####[facility] CENTERNCLIA [id number] [place] [address] [place] Bilirubin [Mass/Vol] 0.5 mg/dL Normal 0.2-1.3 [facility] Comment on above: Order Comment: Speci men Type: BLOOD SPECIMENOrdering Facility: [facility] Address: [address] [place] [address] Performed By: #### 1 9123-9, 20546-8 ####[facility] ANETTE MILLTOWNCLIA [id number] [place] [address] [place] Calcium [Mass/Vol] 8.4 mg/dL Low 8.5-10.2 [facility] Comment on above: Order Comment: Speci men Type: BLOOD SPECIMENOrdering Facility: [facility] Address: [address] [place] [address] Performed By: #### 1 9123-9, 53362-7 ####[facility] MILLTOWNCLIA [id number] [place] [address] [place] Chloride [Moles/Vol] 93 mmol/L Low 98-107 [facility] Comment on above: Order Comment: Speci men Type: BLOOD SPECIMENOrdering Facility: [facility] Address: [address] [place] [address] Performed By: #### 1 9123-9, 27539-9 ####[facility] MILLWGIANALIA [id number] [place] [address] [place] CO2 [Moles/Vol] 30 mmol/L Normal 22-30 [facility] Comment on above: Order Comment: Speci men Type: BLOOD SPECIMENOrdering Facility: [facility] Address: [address] [place] [address] Performed By: #### 1 9123-9, 95162-7 ####[facility] MILLTOWNCLIA [id number] [place] [address] [place] Creatinine [Mass/Vol] 2.25 mg/dL High 0.73-1.22 [facility] Comment on above: Order Comment: Speci men Type: BLOOD SPECIMENOrdering Facility: [facility] Address: [address] [place] [address] Performed By: #### 1 9123-9, 94768-0 ####[facility] MILLWNCLIA [id number] [place] [address] [place] Creatinine and Glomerular filtration rate.predicted panel (S/P/Bld) 31 mL/min/1.73m??? Low >=60 [facility] Comment on above: Order Comment: Ehsan nunes Type: BLOOD SPECIMENOrdering Facility: [facility] Address: [address] [place] [address] Result Comment: Aurora mated Glomerular Filtration Rate [...] actual GFR. Performed By: #### 1 9123-9, 68159-2 ####[facility] [id number] [place] [address] [place] Glucose [Mass/Vol] 104 mg/dL High 74-99 [facility] Comment on above: Order Comment: Ehsan nunes Type: BLOOD SPECIMENOrdering Facility: [facility] Address: [address] [place] [address] Result Comment: The [place] Diabetes Association (ADA) provides guidance for cutoff [...] Standards of Medical Care in Diabetes 2016, [place] Diabetes Association. Diabetes Care. 2016.39(Suppl 1). Performed By: #### 1 9123-9, 02083-9 ####[facility] [id number] [place] [address] [place] Potassium [Moles/Vol] 3.5 mmol/L Low 3.7-5.1 [facility] Comment on above: Order Comment: Speci men Type: BLOOD SPECIMENOrdering Facility: [facility] Address: [address] [place] [address] Performed By: #### 1 9123-9, ####[facility] CENTERGERSON [id number] [place] [address] [place] Protein [Mass/Vol] 7.8 g/dL Normal 6.3-8.0 [facility] Comment on above: Order Comment: Speci men Type: BLOOD SPECIMENOrdering Facility: [facility] Address: [address] [place] [address] Performed By: #### 1 9123-9, 26382-3 ####[facility] CENTERGERSON [id number] [place] [address] [place] [place] Sodium [Moles/Vol] 134 mmol/L Low 136-144 [facility] Comment on above: Order Comment: Speci men Type: BLOOD SPECIMENOrdering Facility: [facility] Address: [address] [place] [address] Performed By: #### 1 9123-9, ####[facility]ENTERAMANDAA [id number] [place] [address] [place] Urea nitrogen [Mass/Vol] 24 mg/dL Normal 9-24 [facility] Comment on above: Order Comment: Speci men Type: BLOOD SPECIMENOrdering Facility: [facility] Address: [address] [place] [address] Performed By: #### 1 9123-9, ####[facility]ERNCLIA [id number] [place] [address] [place] HbA1c (Bld)on 04-17-2024 Average glucose Estimated from glycated hemoglobin (Bld) [Mass/Vol] 85 mg/dL Normal [facility] Comment on above: Order Comment: Ehsan nunes Type: BLOOD SPECIMENOrdering Facility: [facility] Address: [address] [place] [address] Result Comment: eAG: (Estimated average glucose) is a calculated value from HgbA1c and is business center representative of the average blood glucose level in the last 2-3 month period. Performed By: #### 5 5454-3 ####[facility] LABCLIA [id number] [place] [address] [place] HbA1c (Bld) [Mass fraction] 4.6 % Normal 4.3-5.6 [facility] Comment on above: Order Comment: Ehsan nuens Type: BLOOD SPECIMENOrdering Facility: [facility] Address: [address] [place] [address] Result Comment: Amer ican Diabetes Association guidelines indicate that patients with HgbA1c in the range 5.7-6.4% are at increased risk for development of diabetes, and intervention by lifestyle modification may be beneficial. HgbA1c greater or equal to 6.5% is considered diagnostic of diabetes. Performed By: #### 5 5454-3 ####[facility] LABCLIA [id number] [place] [address] [place] LIPID PANEL, NONFASTINGon Cholesterol [Mass/Vol] 117 mg/dL Normal <200 [facility] Comment on above: Order Comment: Ehsan nunes Type: BLOOD SPECIMENOrdering Facility: [facility] Address: [address] [place] [address] Result Comment: <200 mg/dL, Desirable 200-239 mg/dL, Borderline high >239 mg/dL, High Performed By: #### L IPNF, 3016-3 ####[facility] LABCLIA [id number] [place] [address] [place] HDL CHOLESTEROL, NF 49 mg/dL Normal >39 [facility] Comment on above: Order Comment: Ehsan men Type: BLOOD SPECIMENOrdering Facility: [facility] Address: [facility] [place] [address] Result Comment: 40-5 9 mg/dL, Acceptable >59 mg/dL, High: Negative risk factor for coronary heart disease <40 mg/dL, Low: Positive risk factor for coronary heart disease Performed By: #### L PHAN, 3015-3 ####[facility] LABCLIA [id number] [place] [address] [place] LDL CHOLESTEROL, NF 52 mg/dL Normal <100 [facility] Comment on above: Order Comment: Speci men Type: BLOOD SPECIMENOrdering Facility: [facility] Address: [address] [place] [address] Result Comment: <100 mg/dL, Optimal 100-129 mg/dL, Near optimal/above optimal 130-159 mg/dL, Borderline high 160-189 mg/dL, High >189 mg/dL, Very high Secondary prevention optimal LDL Cholesterol levels are recommended to be < 70 mg/dL Performed By: #### L PHAN, 3015- ####[facility] LABCLIA [id number] [address] [place] LDL/HDL RATIO, NF 1.06 mg/dL Normal <2.54 [facility] Comment on above: Order Comment: Meghani men Type: BLOOD SPECIMENOrdering Facility: [facility] Address: [address] [place] [address] Result Comment: Refe rence: 1. National Cholesterol Education Program ATP III Guideline At-A-Glance Quick Desk Reference: National Heart, Lung, and Blood [place]. National Institutes of Health. 2001: NIH Publication No. 01-3305. 2. An International Atherosclerosis Society position paper: global recommendations for the management of dyslipidemia: executive summary, Atherosclerosis. 2014: 232(2):410-413. Performed By: #### L PHAN, 3015-3 ####[facility] LABCLIA [id number] [address] [place] NON HDL CHOL, NF 68 mg/dL Normal <130 [facility] Comment on above: Order Comment: Speci men Type: BLOOD SPECIMENOrdering Facility: [facility] Address: [address] [place] [address] Result Comment: <130 mg/dL, Optimal 130-159 mg/dL, Near optimal/above optimal 160-189 mg/dL, Borderline high 190-219 mg/dL, High >219 mg/dL, Very high Secondary prevention optimal non HDL Cholesterol levels are recommended to be <100 mg/dL Performed By: #### L IPNF, 3015-3 ####[facility] LABCLIA [id number] [place] [address] [place] T CHOL/HDL RATIO NF 2.39 mg/dL Normal <5.10 [facility] Comment on above: Order Comment: Speci men Type: BLOOD SPECIMENOrdering Facility: [facility] Address: [address] [place] [address] Performed By: #### L IPNF, 3015-3 ####[facility] LABCLIA [id number] [place] [address] [place] TRIGLYCERIDES, NF 79 mg/dL Normal <150 [facility] Comment on above: Order Comment: Speci men Type: BLOOD SPECIMENOrdering Facility: [facility] Address: [address] [place] [address] Result Comment: <150 mg/dL, Normal 150-199 mg/dL, Borderline high 200-499 mg/dL, High >499 mg/dL, Very high Performed By: #### L IPNF, 3015-3 ####[facility] LABCLIA [id number] [address] [place] VLDL CHOLESTEROL, NF 16 mg/dL Normal <30 [facility] Comment on above: Order Comment: Speci men Type: BLOOD SPECIMENOrdering Facility: [facility] Address: [address] [place] [address] Performed By: #### L IPNF, 3015-3 ####[facility] LABCLIA [id number] [place] [address] [place] Magnesium SerPl-mCncon 04-17 Magnesium [Mass/Vol] 2.2 mg/dL Normal 1.7-2.3 [facility] Comment on above: Order Comment: Speci men Type: BLOOD SPECIMENOrdering Facility: [facility] Address: [address] [place] [address] Performed By: #### 1 9123-9, 96650-2 ####[facility] [id number] [place] [address] [place] PSA SerPl-mCncon 04-17-2024 Prostate specific Ag [Mass/Vol] 1.48 ng/mL Normal <2.60 [facility] Comment on above: Order Comment: Speci men Type: BLOOD SPECIMENOrdering Facility: [facility] Address: [address] [place] [address] Result Comment: Tota l PSA test methodology used is the Electrochemiluminescence Immunoassay by [employer]. Total PSA values by differing methodologies cannot be interchanged. Performed By: #### 2 857-1 ####[facility] LABCLIA [id number] [place] [address] [place] Retics #on 04-17-2024 Reticulocytes (Bld) [#/Vol] 0.59896 10*3/uL Normal 0.018-0.100 [facility] Comment on above: Order Comment: Speci men Type: BLOOD SPECIMENOrdering Facility: [facility] Address: [address] [place] [address] Performed By: #### 5 7021-8, 55089-8 ####[facility]ENTERNCA [id number] [place] [address] [place] Reticulocytes (Bld) [#/Vol]o n 04-17-2024 Reticulocytes/100 RBC (Bld) 1.2 % Normal 0.4-2.0 [facility] Comment on above: Order Comment: Speci men Type: BLOOD SPECIMENOrdering Facility: [facility] Address: [address] [place] [address] Performed By: #### 5 7021-8, 19582-9 ####[facility] [id number] [place] [id number] [place] TSH SerPl-aCncon 04-17-2024 TSH Qn 2.780 m[IU]/L Normal 0.270-4.200 [facility] Comment on above: Order Comment: Speci men Type: BLOOD SPECIMENOrdering Facility: [facility] Address: [address] [place] [address] Performed By: #### L IPNF, 3016-3 ####[facility] LABCLIA [id number] [place] [id number] [facility] OF ROSALIND [id number] 03-31-2024 [id number] HNO ID: [id number] Author: TYE FLORES PT Service: ? Author Type: Physical Therapist Type: [id number] Filed: 03/31/2024 16:43 Note Text: [facility] Physical Therapy Plan of Care Certification Patient Name: Jacob Landa : 1955 CC #: [id number] Date: 09/06/2023 To: Jesus Manuel Resendiz PA-C [...] Patient to be seen for Therapeutic exercise (58723), Neuromuscular re-education (12911), Manual therapy (81454), Therapeutic activities (09573), Self-shelter management (09994), Patient/Family/Caregiver Education PLAN FOR NEXT VISIT: Core strengthening For further details regarding this patient refer to the Physical Therapy electronically documented visit dated 09/06/2023. Provider Attestation I have reviewed the treatment plan for Jacob Landa, [facility]# [id number] for the period of 09/06/23 -- 10/11/23, established on 09/06/2023. Signature certifies the need for therapy services. Normal [facility] CNOVon 03-11-2024 CNOV Office Visit (FAMPWS ) -- JACOB LANDA ([id number]) 1955 M Date Time Provider Department 03/11/24 9:40 AM [facility] During your visit today, we recorded the following information about you: Pulse Respiration Blood pressure Weight 94/minute 16/minute 120/76 71.2 kg Height 1.778 m Yaw Singh MD 03/12/2024 12:56 PM Addendum Jacob aLnda is a 68 year old male here [...] (Radiation Oncology) Luly Gaffney RN as Specialty Fur Tanner (Oncology) Richard Jenkins DO as Referring (Hematology/Oncology) Haroldo Noland MD (Cardiology) Sena Seymour, MICHELE (Inactive) as Government Affairs Researcher Friend, Bud Paul DO (Gastroenterology) Helen Gibson, Maegan Ferguson, MICHELE as Primary Care Human Capital Manager Medical/Family history review Reviewed and updated problem list, medical/surgical/family/so cial history, medications, and allergies. Opioid use review Opioid Medications (last 90 days) 01/03/2024 Opioid Medications hydrocodone/acetaminophen 1 tablet q 6 H PRN Given at [facility] ER 09/10/23 ORAL (2.5-325 mg tab) [...] 94 Resp 16 Ht 177.8 cm (5' 10) Wt 71.2 kg (157 lb) BMI 22.53 [...] vertebra (HCC) 07/12/2023 Coronary 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 Seeing Dr. [...] valve diso (more content not included)... Normal [facility] Basic Metabolic Profile (BMP )on 02-17-2024 BUN/CRE 11.7 RATIO Normal 10-20 [facility] Comment on above: Performed By: #### L 500.2500, L100.0500 ####[facility] [address] [place], [address] CA,Total 8.2 mg/dL Low 8.5-10.1 [facility] Comment on above: Performed By: #### L 500.2500, L100.0500 ####[facility] [address] [place], [address] Chloride [Moles/Vol] 105 mmol/L Normal 98-107 [facility] Comment on above: Performed By: #### L 500.2500, L100.0500 ####[facility] [address] [place], [address] CO2 [Moles/Vol] 24.0 mmol/L Normal 21.0-32.0 [facility] Comment on above: Performed By: #### L 500.2500, L100.0500 ####[facility] [address] [place], [address] Creatinine [Mass/Vol] 4.10 mg/dL High 0.70-1.30 [facility] Comment on above: Result Comment: The validity of the calculated GFR GFRAA in patients over 70 years has not been determined. Clinical correlation is essential. Performed By: #### L 500.2500, L100.0500 ####[facility] [address] [place], [address] ECRCL 20.16 ml/min Normal [facility] Comment on above: Performed By: #### L 500.2500, L100.0500 ####[facility] [address] [place], [address] EST GFR - AA 19 mL/min Low >60 [facility] Comment on above: Result Comment: Afri can Indonesian GFR Calc Performed By: #### L 500.2500, L100.0500 ####[facility] [address] [place], [address] GAP 7 Normal 5-15 [facility] Comment on above: Performed By: #### L 500.2500, L100.0500 ####[facility] [address] [place], [address] GFR/1.73 sq M.predicted among non-blacks MDRD (S/P/Bld) [Vol rate/Area] 15 mL/min/{1.73_m2} Low >60 [facility] Comment on above: Result Comment: Non- GFR Calc Performed By: #### L 500.2500, L100.0500 ####[facility] [address] [place], [address] Glucose [Mass/Vol] 93 mg/dL Normal 74-106 [facility] Comment on above: Performed By: #### L 500.2500, L100.0500 ####[facility] [address] [place], [address] Potassium [Moles/Vol] 4.8 mmol/L Normal 3.5-5.1 [facility] Comment on above: Performed By: #### L 500.2500, L100.0500 ####[facility] [address] [place], [address] Sodium [Moles/Vol] 136 mmol/L Normal 136-145 [facility] Comment on above: Performed By: #### L 500.2500, L100.0500 ####[facility] [address] [place], [address] Urea nitrogen [Mass/Vol] 48 mg/dL High 7-18 [facility] Comment on above: Performed By: #### L 500.2500, L100.0500 ####[facility] [address] [place], [address] CBC-Complete Blood Cnt No Di ffon 02-17-2024 Erythrocyte distribution width (RBC) [Ratio] 19.0 % High 11.6-14.6 [facility] Comment on above: Performed By: #### L 500.2500, L100.0500 ####[facility] [address] [place], [address] Hematocrit (Bld) [Volume fraction] 34.3 % Low 40-54 [facility] Comment on above: Performed By: #### L 500.2500, L100.0500 ####[facility] [address] [place], [address] Hemoglobin (Bld) [Mass/Vol] 10.5 g/dL Low 13.0-16.5 [facility] Comment on above: Performed By: #### L 500.2500, L100.0500 ####[facility] [address] [place], [address] MCH (RBC) [Entitic mass] 28.2 pg Normal 27.0-32.0 [facility] Comment on above: Performed By: #### L 500.2500, L100.0500 ####[facility] [address] [place], [address] MCHC (RBC) [Mass/Vol] 30.6 g/dL Low 32-36 [facility] Comment on above: Performed By: #### L 500.2500, L100.0500 ####[facility] [address] [place], [address] MCV (RBC) [Entitic vol] 92.0 fL Normal 80-94 [facility] Comment on above: Performed By: #### L 500.2500, L100.0500 ####[facility] [address] [place], [address] Platelet mean volume (Bld) [Entitic vol] 8.7 fL Normal 6.2-12.0 [facility] Comment on above: Performed By: #### L 500.2500, L100.0500 ####[facility] [address] [place], [address] Platelets (Bld) [#/Vol] 104 10*3/uL Low 150-450 [facility] Comment on above: Performed By: #### L 500.2500, L100.0500 ####[facility] [address] [place], [address] RBC (Bld) [#/Vol] 3.73 10*6/uL Low 4.6-6.2 [facility] Comment on above: Performed By: #### L 500.2500, L100.0500 ####[facility] [address] [place], [address] RDW SD 63.3 fl High 35.1-43.9 [facility] Comment on above: Performed By: #### L 500.2500, L100.0500 ####[facility] [address] [place], [address] WBC (Bld) [#/Vol] 4.9 10*3/uL Normal 4.4-11.0 [facility] Comment on above: Performed By: #### L 500.2500, L100.0500 ####[facility] [address] [place], [address] Basic Metabolic Profile (BMP )on 02-16-2024 BUN/CRE 10.3 RATIO Normal 10-20 [facility] Comment on above: Performed By: #### L 500.2500, L100.0500 ####[facility] [address] [place], [address] CA,Total 8.2 mg/dL Low 8.5-10.1 [facility] Comment on above: Performed By: #### L 500.2500, L100.0500 ####[facility] [address] [place], [address] Chloride [Moles/Vol] 106 mmol/L Normal 98-107 [facility] Comment on above: Performed By: #### L 500.2500, L100.0500 ####[facility] [address] [place], [address] CO2 [Moles/Vol] 23.0 mmol/L Normal 21.0-32.0 [facility] Comment on above: Performed By: #### L 500.2500, L100.0500 ####[facility] [address] [place], [address] Creatinine [Mass/Vol] 3.10 mg/dL High 0.70-1.30 [facility] Comment on above: Result Comment: The validity of the calculated GFR GFRAA in patients over 70 years has not been determined. Clinical correlation is essential. Performed By: #### L 500.2500, L100.0500 ####[facility] [address] [place], [address] ECRCL 26.69 ml/min Normal [facility] Comment on above: Performed By: #### L 500.2500, L100.0500 ####[facility] [address] [place], [address] EST GFR - AA 26 mL/min Low >60 [facility] Comment on above: Result Comment: Afri can Indonesian GFR Calc Performed By: #### L 500.2500, L100.0500 ####[facility] [address] [place], [address] GAP 7 Normal 5-15 [facility] Comment on above: Performed By: #### L 500.2500, L100.0500 ####[facility] [address] [place], [address] GFR/1.73 sq M.predicted among non-blacks MDRD (S/P/Bld) [Vol rate/Area] 21 mL/min/{1.73_m2} Low >60 [facility] Comment on above: Result Comment: Non- GFR Calc Performed By: #### L 500.2500, L100.0500 ####[facility] [address] [place], [address] Glucose [Mass/Vol] 74 mg/dL Normal 74-106 [facility] Comment on above: Performed By: #### L 500.2500, L100.0500 ####[facility] [address] [place], [address] Potassium [Moles/Vol] 5.1 mmol/L Normal 3.5-5.1 [facility] Comment on above: Performed By: #### L 500.2500, L100.0500 ####[facility] [address] [place], [address] Sodium [Moles/Vol] 136 mmol/L Normal 136-145 [facility] Comment on above: Performed By: #### L 500.2500, L100.0500 ####[facility] [address] [place], [address] Urea nitrogen [Mass/Vol] 32 mg/dL High 7-18 [facility] Comment on above: Performed By: #### L 500.2500, L100.0500 ####[facility] [address] [place], [address] CBC-Complete Blood Cnt No Di ffon 02-16-2024 Erythrocyte distribution width (RBC) [Ratio] 19.1 % High 11.6-14.6 [facility] Comment on above: Performed By: #### L 500.2500, L100.0500 ####[facility] [address] [place], [address] Hematocrit (Bld) [Volume fraction] 38.8 % Low 40-54 [facility] Comment on above: Performed By: #### L 500.2500, L100.0500 ####[facility] [address] [place], [address] Hemoglobin (Bld) [Mass/Vol] 11.5 g/dL Low 13.0-16.5 [facility] Comment on above: Performed By: #### L 500.2500, L100.0500 ####[facility] [address] [place], [address] MCH (RBC) [Entitic mass] 27.8 pg Normal 27.0-32.0 [facility] Comment on above: Performed By: #### L 500.2500, L100.0500 ####[facility] [address] [place], [address] MCHC (RBC) [Mass/Vol] 29.6 g/dL Low 32-36 [facility] Comment on above: Performed By: #### L 500.2500, L100.0500 ####[facility] [address] [place], [address] MCV (RBC) [Entitic vol] 93.9 fL Normal 80-94 [facility] Comment on above: Performed By: #### L 500.2500, L100.0500 ####[facility] [address] [place], [address] Platelet mean volume (Bld) [Entitic vol] 9.0 fL Normal 6.2-12.0 [facility] Comment on above: Performed By: #### L 500.2500, L100.0500 ####[facility] [address] [place], [address] Platelets (Bld) [#/Vol] 110 10*3/uL Low 150-450 [facility] Comment on above: Performed By: #### L 500.2500, L100.0500 ####[facility] [address] [place], [address] RBC (Bld) [#/Vol] 4.13 10*6/uL Low 4.6-6.2 [facility] Comment on above: Performed By: #### L 500.2500, L100.0500 ####[facility] [address] [place], [address] RDW SD 64.0 fl High 35.1-43.9 [facility] Comment on above: Performed By: #### L 500.2500, L100.0500 ####[facility] [address] [place], [address] WBC (Bld) [#/Vol] 8.6 10*3/uL Normal 4.4-11.0 [facility] Comment on above: Performed By: #### L 500.2500, L100.0500 ####[facility] [address] [place], [address] 12 Lead EKGon 02-15-2024 12 Lead EKG [facility] [address] [place] [address] 12 Lead EKG 02/15/24 0517 MR#: [id number] Acct: [id number] Name: JACOB LANDA Rep #: [id number] : 1955 68 From: Haroldo Noland MD Attending Dr: Dr. Gayatri Roy, DO Status: DIS I N Ordering Dr: Cameron Rosas MD Date: 02/15/24 Location: [facility] Sex: M C Admitted: 02/15/24 Test [...] UNCONFIRMED Confirmed by LUDIN MANNING, HAROLDO ([id number]), photographic editor CHRISTIANO OWENS ([id number]) on 02/18/2024 12:37:01 PM Referred By: CORADO Confirmed By: HAROLDO NOLAND MD 02/18/24 1237 Date Haroldo Noland MD CC: Dr. Cameron Rosas MD; Dr. Yaw Singh MD; Dr. Gayatri Roy, DO Signed Normal [facility] CBC W/Diff, Automatedon 11-0 Absolute Lymph 0.62 X10 3/uL Low 0.83-4.51 [facility] Comment on above: Performed By: #### L 500.4050, L501.2300, L100.0100, L501.5200, L501.9520 #### [facility] [address] [place], [address] Absolute Neut 3.7 X10 3/uL Normal 2.0-7.7 [facility] Comment on above: Performed By: #### L 500.4050, L501.2300, L100.0100, L501.5200, L501.9520 #### [facility] [address] [place], [address] Basophils/100 WBC (Bld) 0.8 % Normal 0-1 [facility] Comment on above: Performed By: #### L 500.4050, L501.2300, L100.0100, L501.5200, L501.9520 #### [facility] [address] [place], [address] Eosinophils/100 WBC (Bld) 1.0 % Normal 0-5 [facility] Comment on above: Performed By: #### L 500.4050, L501.2300, L100.0100, L501.5200, L501.9520 #### [facility] [address] [place], [address] Erythrocyte distribution width (RBC) [Ratio] 19.5 % High 11.6-14.6 [facility] Comment on above: Performed By: #### L 500.4050, L501.2300, L100.0100, L501.5200, L501.9520 #### [facility] [address] [place], [address] Hematocrit (Bld) [Volume fraction] 40.6 % Normal 40-54 [facility] Comment on above: Performed By: #### L 500.4050, L501.2300, L100.0100, L501.5200, L501.9520 #### [facility] [address] [place], [address] Hemoglobin (Bld) [Mass/Vol] 12.3 g/dL Low 13.0-16.5 [facility] Comment on above: Performed By: #### L 500.4050, L501.2300, L100.0100, L501.5200, L501.9520 #### [facility] [address] [place], [address] IG% 0.400 Normal 0.0-0.9 [facility] Comment on above: Result Comment: IG% - Immature Granulocytes (promyelocytes, myelocytes and metamyelocytes) > 1% indicates that a LEFT SHIFT is Present. Performed By: #### L 500.4050, L501.2300, L100.0100, L501.5200, L501.9520 #### [facility] [address] [place], [address] Lymphocytes/100 WBC (Bld) 12.7 % Low 19-41 [facility] Comment on above: Performed By: #### L 500.4050, L501.2300, L100.0100, L501.5200, L501.9520 #### [facility] [address] [place], [address] MCH (RBC) [Entitic mass] 28.0 pg Normal 27.0-32.0 [facility] Comment on above: Performed By: #### L 500.4050, L501.2300, L100.0100, L501.5200, L501.9520 #### [facility] [address] [place], [address] MCHC (RBC) [Mass/Vol] 30.3 g/dL Low 32-36 [facility] Comment on above: Performed By: #### L 500.4050, L501.2300, L100.0100, L501.5200, L501.9520 #### [facility] [address] [place], [address] MCV (RBC) [Entitic vol] 92.5 fL Normal 80-94 [facility] Comment on above: Performed By: #### L 500.4050, L501.2300, L100.0100, L501.5200, L501.9520 #### [facility] [address] [place], [address] Monocytes/100 WBC (Bld) 8.6 % Normal 0-10 [facility] Comment on above: Performed By: #### L 500.4050, L501.2300, L100.0100, L501.5200, L501.9520 #### [facility] [address] [place], [address] Neutrophils/100 WBC (Bld) 76.5 % High 47-70 [facility] Comment on above: Performed By: #### L 500.4050, L501.2300, L100.0100, L501.5200, L501.9520 #### [facility] [address] [place], [address] Nucleated RBC (Bld) [#/Vol] 0 10*3/uL Normal 0-5 [facility] Comment on above: Performed By: #### L 500.4050, L501.2300, L100.0100, L501.5200, L501.9520 #### [facility] [address] [place], [address] Platelet mean volume (Bld) [Entitic vol] 9.6 fL Normal 6.2-12.0 [facility] Comment on above: Performed By: #### L 500.4050, L501.2300, L100.0100, L501.5200, L501.9520 #### [facility] [address] [place], [address] Platelets (Bld) [#/Vol] 120 10*3/uL Low 150-450 [facility] Comment on above: Performed By: #### L 500.4050, L501.2300, L100.0100, L501.5200, L501.9520 #### [facility] [address] [place], [address] RBC (Bld) [#/Vol] 4.39 10*6/uL Low 4.6-6.2 [facility] Comment on above: Performed By: #### L 500.4050, L501.2300, L100.0100, L501.5200, L501.9520 #### [facility] [address] [place], [address] RDW SD 62.8 fl High 35.1-43.9 [facility] Comment on above: Performed By: #### L 500.4050, L501.2300, L100.0100, L501.5200, L501.9520 #### [facility] [address] [place], [address] WBC (Bld) [#/Vol] 4.9 10*3/uL Normal 4.4-11.0 [facility] Comment on above: Performed By: #### L 500.4050, L501.2300, L100.0100, L501.5200, L501.9520 #### [facility] [address] [place], [address] Comprehensive Metabolic Prof ilon 02-15-2024 Albumin [Mass/Vol] 2.4 g/dL Low 3.2-5.0 [facility] Comment on above: Performed By: #### L 500.4050, L501.2300, L100.0100, L501.5200, L501.9520 #### [facility] [address] [place], [address] Albumin/Globulin [Mass ratio] 0.7 {ratio} Low 0.9-2.4 [facility] Comment on above: Performed By: #### L 500.4050, L501.2300, L100.0100, L501.5200, L501.9520 #### [facility] [address] [place], [address] ALK P 108 U/L Normal 45-117 [facility] Comment on above: Performed By: #### L 500.4050, L501.2300, L100.0100, L501.5200, L501.9520 #### [facility] [address] [place], [address] ALT [Catalytic activity/Vol] 38 U/L Normal 16-61 [facility] Comment on above: Performed By: #### L 500.4050, L501.2300, L100.0100, L501.5200, L501.9520 #### [facility] [address] [place], [address] AST [Catalytic activity/Vol] 16 U/L Normal 15-37 [facility] Comment on above: Performed By: #### L 500.4050, L501.2300, L100.0100, L501.5200, L501.9520 #### [facility] [address] [place], [address] Bilirubin [Mass/Vol] 0.50 mg/dL Normal 0.20-1.00 [facility] Comment on above: Result Comment: For patients on eltrombopag therapy, use of Dimension [place] TBIL is not recommended. Performed By: #### L 500.4050, L501.2300, L100.0100, L501.5200, L501.9520 #### [facility] [address] [place], [address] BUN/CRE 9.9 RATIO Low 10-20 [facility] Comment on above: Performed By: #### L 500.4050, L501.2300, L100.0100, L501.5200, L501.9520 #### [facility] [address] [place], [address] CA,Total 8.3 mg/dL Low 8.5-10.1 [facility] Comment on above: Performed By: #### L 500.4050, L501.2300, L100.0100, L501.5200, L501.9520 #### [facility] [address] [place], [address] Chloride [Moles/Vol] 104 mmol/L Normal 98-107 [facility] Comment on above: Performed By: #### L 500.4050, L501.2300, L100.0100, L501.5200, L501.9520 #### [facility] [address] [place], [address] CO2 [Moles/Vol] 28.0 mmol/L Normal 21.0-32.0 [facility] Comment on above: Performed By: #### L 500.4050, L501.2300, L100.0100, L501.5200, L501.9520 #### [facility] [address] [place], [address] Creatinine [Mass/Vol] 3.43 mg/dL High 0.70-1.30 [facility] Comment on above: Result Comment: The validity of the calculated GFR GFRAA in patients over 70 years has not been determined. Clinical correlation is essential. Performed By: #### L 500.4050, L501.2300, L100.0100, L501.5200, L501.9520 #### [facility] [address] [place], [address] ECRCL 23.15 ml/min Normal [facility] Comment on above: Performed By: #### L 500.4050, L501.2300, L100.0100, L501.5200, L501.9520 #### [facility] [address] [place], [address] EST GFR - AA 23 mL/min Low >60 [facility] Comment on above: Result Comment: Afri can Indonesian GFR Calc Performed By: #### L 500.4050, L501.2300, L100.0100, L501.5200, L501.9520 #### [facility] [address] [place], [address] GAP 7 Normal 5-15 [facility] Comment on above: Performed By: #### L 500.4050, L501.2300, L100.0100, L501.5200, L501.9520 #### [facility] [address] [place], [address] GFR/1.73 sq M.predicted among non-blacks MDRD (S/P/Bld) [Vol rate/Area] 19 mL/min/{1.73_m2} Low >60 [facility] Comment on above: Result Comment: Non- GFR Calc Performed By: #### L 500.4050, L501.2300, L100.0100, L501.5200, L501.9520 #### [facility] [address] [place], [address] Globulin (S) [Mass/Vol] 3.4 g/dL Normal 2.2-4.2 [facility] Comment on above: Performed By: #### L 500.4050, L501.2300, L100.0100, L501.5200, L501.9520 #### [facility] [address] [place], [address] Glucose [Mass/Vol] 85 mg/dL Normal 74-106 [facility] Comment on above: Performed By: #### L 500.4050, L501.2300, L100.0100, L501.5200, L501.9520 #### [facility] [address] [place], [address] Potassium [Moles/Vol] 4.4 mmol/L Normal 3.5-5.1 [facility] Comment on above: Performed By: #### L 500.4050, L501.2300, L100.0100, L501.5200, L501.9520 #### [facility] [address] [place], [address] Sodium [Moles/Vol] 139 mmol/L Normal 136-145 [facility] Comment on above: Performed By: #### L 500.4050, L501.2300, L100.0100, L501.5200, L501.9520 #### [facility] [address] [place], [address] T PROT 5.8 g/dL Low 6.4-8.2 [facility] Comment on above: Performed By: #### L 500.4050, L501.2300, L100.0100, L501.5200, L501.9520 #### [facility] [address] [place], [address] Urea nitrogen [Mass/Vol] 34 mg/dL High 10-24 [facility] Comment on above: Performed By: #### L 500.4050, L501.2300, L100.0100, L501.5200, L501.9520 #### [facility] [address] [place], [address] Consultation - Cardiologyon 02-15-2024 Consultation - Cardiology [facility] Medical Records Department [address] [place] [address] Consultation - Cardiology 02/15/24824 MR#: [id number] Acct: [id number] Name: JACOB LANDA Rep #: [id number] : 1955 68 From: Trinh Briones MD PCP: Dr. Yaw Singh MD Status:ADM IN Location: [place] [address] Pt seen evaluated w/DEVYN. I personally interviewed [...] Once stable patient to follow-up with primary patient accounts specialist at [facility] cardiac team for continuation of cardiac care [...] is a 68 M who presented To [facility] emergency room on 02/14/2024 with left [...] In October 2023 patient was admitted to [facility] with sepsis secondary to acute cystitis [...] edema. He is still able to urinate. 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 Normal [facility] Consultation - Nephrologyon 02-15-2024 Consultation - Nephrology [facility] Medical Records Department [address] [place] [address] Consultation - Nephrology 02/15/24 1427 MR#: [id number] Acct: [id number] Name: JACOB LANDA Rep #: [id number] : 1955 68 From: Gaudencio Greenberg MD PCP: Dr. Yaw Singh MD Status:ADM IN Location: [place] [address] Assessment Plan Assessment/Plan (1) End stage renal [...] scheduled to go to surgery later today. 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 Normal [facility] Consultation - Orthopedicson 02-15-2024 Consultation - Orthopedics [facility] Medical Records Department [address] [place] [address] Consultation - Orthopedics 02/15/24 1605 MR#: [id number] Acct: [id number] Name: JACOB LANDA Rep #: [id number] : 1955 68 From: Jerod Marc MD PCP: Dr. Yaw Singh MD Status:ADM IN Location: [facility] [id number] HPI Consult Data Date of Consult: 02/15/24 [...] pain. Patient denies a history of DVTs. 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 Normal [facility] Decalcification bone/plaqueo n 02-15-2024 Decalcification bone/plaque Patient Age/Sex Location Account Attending Physician SYEDAJACOB TATE 68/M [facility] [id number] Dr. Gayatri Roy, DO Specimen: [id number] Received: 02/18/24 Status: RICKY Dominguez Num: [id number] Spec Type: TOTAL HIP Subm Dr: Dr. Jerod Marc MD HEADER OPERATION: Hemiarthroplasty, hip PRE-OP DIAGNOSIS: Left hip fracture TISSUE SUBMITTED: Bone and tissue left hip MICROSCOPIC DIAGNOSIS Bone and tissue of left hip, total hip resection: Organizing fracture callus. AM: 02/21/2024 MICROSCOPIC DESCRIPTION Slides are reviewed. GROSS DESCRIPTION Received is one container labeled with the patient's name and designated femoral head and tissue. The specimen consists of a fitzgerald femoral [...] measuring 2.5 x 1.0 x 0.4 cm. Arrt Technologist sections are submitted in three cassettes as follows: 1 - soft tissue, entirely submitted, 2 - detached pieces of bone after decalcification, 3 - femoral head after decalcification. / 02/18/2024 TC:5 CPT: 79309, 43388 Patient Age/Sex Location Account Attending Physician JACOB LANDA 68/M [facility] [id number] Dr. Gayatri Roy DO Signed (signature on file) Dr. Scott Adame DO 02/21/24 1135 Normal [facility] Comment on above: Performed By: #### P DEC ####[facility] [address] [place], [place], [address] Hip Min 2 Views (Portable)on 02-15-2024 Hip Min 2 Views (Portable) [facility] Imaging Services [address] [place] [address] Hip Min 2 Views (Portable) MR#: [id number] Acct: [id number] Name: JACOB LANDA Rep #: [id number] : 1955 M 68 From: Maegan Gamble MD PCP: Dr. Yaw Singh MD Status: ADM IN Study: Hip Min 2 Views (Portable) Date of Exam: 02/14 Exam# [id number] Ordering Dr: Jerod Marc MD [id number] EXAM: XR LEFT HIP WITH PELVIS WHEN PERFORMED, 2 OR 3 VIEWS CLINICAL INDICATION: Post Op -- AP both hips on single gissell/lateral of op hip PACU TECHNIQUE: 1 view of the left hip, 2 views of the pelvis, 1 mildly rotated to the left. COMPARISON: February 14, 2024 preop exam. FINDINGS: BONES/JOINTS: Mildly widened [place] left acetabulum, left femoral head prosthesis appears adequately positioned. The pelvis appears to be demineralized. SOFT TISSUES: Mild soft tissue swelling and slight scattered gas. RAD/Hip Min 2 Views (Portable) IMPRESSION: Well-positioned left femoral head prosthesis. Postop soft tissue changes. Electronically Signed: Maegan Gamble MD at 19:09 EST , CC: Dr. Yaw Singh MD; Dr. Jerod Marc MD Credit Card Specialist: Signed Normal [facility] Hip Min 2 Views (Portable) [facility] Imaging Services [address] [facility] [address] [facility] [place] [address] Hip Min 2 Views (Portable) MR#: [id number] Acct: [id number] Name: JACOB LANDA Rep #: [id number] : 1955 M 68 From: Maegan Gamble MD PCP: Dr. Yaw Singh MD Status: ADM IN Study: Hip Min 2 Views (Portable) Date of Exam: 02/14 Exam# [id number] Ordering Dr: Jerod Marc MD [id number] Exam: XR Hip Unilateral with Pelvis when [...] Yaw Singh MD; Dr. Jerod Marc MD Credit Card Specialist: Signed Normal [facility] Liver Profileon 02-15-2024 Albumin [Mass/Vol] 2.4 g/dL Low 3.2-5.0 [facility] Comment on above: Order Comment: FOR M ORNING LABS PER DOUG Performed By: #### L 300.3900, L500.3400, L300.4310 #### [facility] [address] [place], [address] ALK P 105 U/L Normal 45-117 [facility] Comment on above: Order Comment: FOR M ORNING LABS PER DOUG Performed By: #### L 300.3900, L500.3400, L300.4310 #### [facility] [address] [place], [address] ALT [Catalytic activity/Vol] 37 U/L Normal 16-61 [facility] Comment on above: Order Comment: FOR M ORNING LABS PER DOUG Performed By: #### L 300.3900, L500.3400, L300.4310 #### [facility] [address] [place], [address] AST [Catalytic activity/Vol] 15 U/L Normal 15-37 [facility] Comment on above: Order Comment: FOR M ORNING LABS PER DOUG Performed By: #### L 300.3900, L500.3400, L300.4310 #### [facility] [address] [place], [address] Bilirubin [Mass/Vol] 0.60 mg/dL Normal 0.20-1.00 [facility] Comment on above: Order Comment: FOR M ORNING LABS PER DOUG Result Comment: For patients on eltrombopag therapy, use of Dimension [place] TBIL is not recommended. Performed By: #### L 300.3900, L500.3400, L300.4310 #### [facility] [address] [place], [address] Bilirubin.direct [Mass/Vol] 0.21 mg/dL Normal 0.00-0.30 [facility] Comment on above: Order Comment: FOR M ORNING LABS PER DOUG Performed By: #### L 300.3900, L500.3400, L300.4310 #### [facility] [address] [place], [address] Globulin (S) [Mass/Vol] 3.9 g/dL Normal 2.2-4.2 [facility] Comment on above: Order Comment: FOR M ORNING LABS PER DOUG Performed By: #### L 300.3900, L500.3400, L300.4310 #### [facility] [address] [place], [address] T PROT 6.3 g/dL Low 6.4-8.2 [facility] Comment on above: Order Comment: FOR Socrates MCMAHON LABS PER DOUG Performed By: #### L 300.3900, L500.3400, L300.4310 #### [facility] [address] [place], [address] MR/POSTOP.ANEon 02-15-2024 MR/POSTOP.ANE [facility] Medical Records Department [address] [place] [address] Anesthesia Postop Eval I 02/15/241806 MR#: [id number] Acct: [id number] Name: JACOB LANDA Rep #: [id number] : 1955 68 From: Cameron Rosas MD PCP: Dr. Yaw Singh MD Status:ADM IN Y Race: C Location: [place] [address] Anesthesia: Postop Eval I Current Vital Signs Temperature: 98.6 F Pulse Rate: 118 Blood Pressure: 114/73 Respiratory Rate: 16 Pulse Ox: 95 Assessment Airway patent: Yes Spontaneous unlabored respirations: Yes nausea: No Vomiting: No Anesthesia Complication: No Fluid Hydration Crystalloid volume administer (ml): 300 Total IV fluid infused: 300 Progress Note Anesthesia document: Postop Eval 1 completed: Yes 02/15/241807 Date Cameron Rosas MD Cosignletty Signature: Date CC: Signed Normal [facility] MR/[id number] 02-15-2024 MR/POSTOPAN2 [facility] Medical Records Department [address] [place] [address] Anesthesia Postop Eval II 02/15/241807 MR#: [id number] Acct: [id number] Name: JACOB LANDA Rep #: [id number] : 1955 68 From: Cameron Rosas MD PCP: Dr. Yaw Singh MD Status:ADM IN Y Race: C Location: [place] [address] Anesthesia Postop Eval I Sum Postop Eval [...] MD Cosigner Signature: Date CC: Signed Normal [facility] Magnesiumon 02-15-2024 Magnesium [Mass/Vol] 2.2 mg/dL Normal 1.6-2.6 [facility] Comment on above: Performed By: #### L 500.4050, L501.2300, L100.0100, L501.5200, L501.9520 ####[facility] [address] [place], [address] Operative Reporton 4 Operative Report [facility] Medical Records Department [address] [place] [address] Operative Report 02/15/24 1730 MR#: [id number] Acct: [id number] Name: JACOB LANDA Rep #: [id number] : 1955 68 From: Jerod Marc MD PCP: Dr. Yaw Singh MD Status:ADM IN Location: [address] Operative Report (Standard) Operative Information Surgery/Procedure Performed: [...] awakened by anesthesia and transferred to the [facility]. Patient was then transferred to the PACU for recovery. Postoperative plan: Patient will get 24 hours postop antibiotics. Patient will get in-house physical therapy and will be weight-bear as tolerated. Patient will follow up in office in 2 weeks for a wound check and x- rays. Aspirin 81 mg p.o. twice daily for DVT p (more content not included)... Normal [facility] Partial Thromboplast Timeon 02-15-2024 aPTT Coag (Bld) [Time] 32.2 s Normal 24.1-36.2 [facility] Comment on above: Performed By: #### L 300.3900, L500.3400, L300.4310 #### [facility] [address] [place], [address] Phosphoruson 02-15-2024 Phosphate [Mass/Vol] 4.9 mg/dL Normal 2.5-4.9 [facility] Comment on above: Performed By: #### L 500.4050, L501.2300, L100.0100, L501.5200, L501.9520 #### [facility] [address] [place], [address] Prothrombin Time w/INRon INR Coag (PPP) [Relative time] 1.5 {INR} Normal [facility] Comment on above: Performed By: #### L 300.3900, L500.3400, L300.4310 #### [facility] [address] [place], [address] PT Coag (PPP) [Time] 18.0 s High 11.7-14.9 [facility] Comment on above: Performed By: #### L 300.3900, L500.3400, L300.4310 #### [facility] [address] [place], [address] Thyroid Stim Hormone (TSH)on 02-15-2024 TSH 2.630 uIU/mL Normal 0.358-3.740 [facility] Comment on above: Performed By: #### L 500.4050, L501.2300, L100.0100, L501.5200, L501.9520 ####[facility] [address] [place], [place], [address] Type AND Screenon 02-15-2024 ABO and Rh group Nom (Bld) Blood group A Rh(D) positive Normal [facility] Comment on above: Order Comment: SFRAC TURED HIP Performed By: #### B TS ####[facility] [address] [place], [place], [address] XR CHEST 2V FRONTAL/LATon XR CHEST 2V [...] consolidations/atelectasis , similar to the prior study. Credit Card Specialist: MORGAN Transcribe Date/Time: Feb 02 2024 7:06P Dictated by : ALICE GARCIA MD This examination was interpreted and the report reviewed and electronically signed by: ALICE GARCIA MD on Feb 02 2024 7:08PM EST [id number] Normal [facility] No Panel Informationon 01-23 IMPRESSION: Esophagectomy with gastric pull-through. Slow emptying of the stomach. Reflux into the esophagus. Delayed small bowel transit time of 4.5 hours. Credit Card Specialist: MORGAN Transcribe Date/Time: Jan 24 2024 3:15P Dictated by : ELIAS CALVILLO MD This examination was interpreted and the report reviewed and electronically signed by: ELIAS CALVILLO MD on Jan 24 2024 3:22PM EST [facility] Radiology Study observation (narrative) [facility] No Panel InformationOrdered By: [facility] Provider on 01-24-2024 [facility] RF Gastrointestinal tract up per [...] appeared unremarkable. [facility] Provider, [facility] - 01/24/2024 * * *Final Report* * [...] small bowel transit time of 4.5 hours. Credit Card Specialist: [facility] Transcribe Date/Time: Jan 24 2024 3:15P Dictated by : ELIAS CALVILLO MD This examination was interpreted and the report reviewed and electronically signed by: ELIAS CALVILLO MD on Jan 24 2024 3:22PM [facility] Small bowel Diameter USon * * *Final [...] appeared unremarkable. [facility] Provider, [facility] - 01/24/2024 * * *Final Report* * [...] small bowel transit time of 4.5 hours. [facility] Special[facility] Transcribe Date/Time: Jan 24 2024 3:15P Dictated by : ELIAS CALVILLO MD This examination was interpreted and the report reviewed and electronically signed by: ELIAS CALVILLO MD on Jan 24 2024 3:22PM EST [facility] XR GI SMALL BOWEL FOLLOW-THR [...] small bowel transit time of 4.5 hours. Credit [facility] Special[facility] Transcribe Date/Time: Jan 24 2024 3:15P Dictated by : ELIAS CALVILLO MD This examination was interpreted and the report reviewed and electronically signed by: ELIAS CALVILLO MD on Jan 24 2024 3:22PM EST [id number] Normal [facility] XR UPPER GI SINGLE CONTRASTo n 01-24-2024 [...] small bowel transit time of 4.5 hours. Credit Card Specialist: [facility] Transcribe Date/Time: Jan 24 2024 3:15P Dictated by : ELIAS CALVILLO MD This examination was interpreted and the report reviewed and electronically signed by: ELIAS CALVILLO MD on Jan 24 2024 3:22PM EST [id number] Normal [facility] CBC W Auto Differential pane l (Bld)on 01-15-2024 Anisocytosis Ql (Bld) Present [facility] Basophils (Bld) [#/Vol] 0.04 10*3/uL [facility] Basophils/100 WBC (Bld) 0.6 % [facility] Differential cell count method Nom (Bld) Auto [facility] Eosinophils (Bld) [#/Vol] 0.06 10*3/uL [facility] Eosinophils/100 WBC (Bld) 0.9 % [facility] Erythrocyte distribution width (RBC) [Ratio] 19.7 % High 11.5 - 15.0 % [facility] Hematocrit (Bld) [Volume fraction] 31.4 % Low 39.0 - 51.0 % [facility] Hemoglobin (Bld) [Mass/Vol] 9.5 g/dL Low 13.0 - 17.0 g/dL [facility] Immature granulocytes (Bld) [#/Vol] 0.06 10*3/uL BANNERF [facility] Immature granulocytes/100 WBC (Bld) 0.9 % [facility] Interpretation and review of laboratory results Abnormal [facility] Lymphocytes (Bld) [#/Vol] 0.71 10*3/uL Low [facility] Lymphocytes/100 WBC (Bld) 11.1 % [facility] MCH (RBC) [Entitic mass] 27.1 pg 26.0 - 34.0 pg [facility] MCHC (RBC) [Mass/Vol] 30.3 g/dL Low 30.5 - 36.0 g/dL [facility] MCV (RBC) [Entitic vol] 89.5 fL 80.0 - 100.0 fL [facility] Monocytes (Bld) [#/Vol] 0.53 10*3/uL [facility]AN[facility] Monocytes/100 WBC (Bld) 8.3 % [facility] Neutrophils (Bld) [#/Vol] 4.98 10*3/uL [facility] Neutrophils/100 WBC (Bld) 78.2 % [facility] Nucleated RBC (Bld) [#/Vol] 0.03 10*3/uL High [facility] Nucleated RBC/100 WBC (Bld) [Ratio] 0.5 % /100 WBC [facility] Ovalocytes LM Ql (Bld) Few [facility] Platelet mean volume (Bld) [Entitic vol] 9.7 fL 9.0 - 12.7 fL [facility] Platelets (Bld) [#/Vol] 188 10*3/uL [facility] Comment on above: No clot detected. Platelets Estimate (Bld) [#/Vol] Adequate [facility] Polychromasia LM Ql (Bld) Slight [facility] RBC (Bld) [#/Vol] 3.51 10*6/uL Low 4.20 - 6.0 0 m/uL [facility] RBC Fragments Few Abnormal None Seen [facility] Red Cell Morph Reviewed: see result s of individual morphologies [facility] WBC (Bld) [#/Vol] 6.38 10*3/uL [facility] This is an appended report. These results have been appended to a previously verified report. [facility] RETICULOCYTE COUNTon 10-08-2 024 Reticulocytes (Bld) [#/Vol] 0.133 10*3/uL High [facility] Reticulocytes (Bld) [#/Vol]o n 01-15-2024 Interpretation and review of laboratory results Abnormal [facility] Reticulocytes/100 RBC (Bld) 3.8 % High 0.4 - 2.0 % [facility] Basic metabolic 2000 panelon 10-05-2023 Anion gap [Moles/Vol] 9 mmol/L 8 - 15 mmol/L [facility] Calcium [Mass/Vol] 8.9 mg/dL 8.5 - 10. 2 mg/dL [facility] Chloride [Moles/Vol] 107 mmol/L 98 - 10 7 mmol/L [facility] CO2 [Moles/Vol] 25 mmol/L 22 - 30 mmol/L [facility] Creatinine [Mass/Vol] 1.10 mg/dL 0.73 - 1.22 mg/dL [facility] GFR/1.73 sq M.predicted among non-blacks MDRD (S/P/Bld) [Vol rate/Area] 73 mL/min/{1.73_m2} - PINF [facility] Comment on above: Estimated Glomerular [...] [Mass/Vol] 83 mg/dL 74 - 99 mg/dL [facility] Comment on above: The [place] Diabete s Association (ADA) provides guidance for [...] Standards of Medical Care in Diabetes 2016, [place] Diabetes Association. Diabetes Care. 2016.39(Suppl 1). Interpretation and review of laboratory results Normal [facility] Potassium [Moles/Vol] 4.3 mmol/L 3.7 - 5.1 mmol/L [facility] Sodium [Moles/Vol] 141 mmol/L 136 - 144 mmol/L [facility] Urea nitrogen [Mass/Vol] 15 mg/dL 9 - 24 mg/dL [facility] LIPID PANEL, NONFASTINGon Cholesterol [Mass/Vol] 205 mg/dL High NINF - 200 mg/dL [facility] Comment on above: <200 mg/dL, Desirabl e 200-239 mg/dL, Borderline high >239 mg/dL, High HDL Cholesterol, Nonfasting 46 mg/dL 39 - PINF mg/dL [facility] Comment on above: 40-59 mg/dL, Accepta ble >59 mg/dL, High: Negative risk factor for coronary heart disease <40 mg/dL, Low: Positive risk factor for coronary heart disease Interpretation and review of laboratory results Abnormal [facility] LDL Cholesterol, Nonfasting 144 mg/dL High NINF - 100 mg/dL [facility] Comment on above: <100 mg/dL, Optimal 100-129 mg/dL, Near optimal/above optimal 130-159 mg/dL, Borderline high 160-189 mg/dL, High >189 mg/dL, Very high Secondary prevention optimal LDL Cholesterol levels are recommended to be < 70 mg/dL LDL/HDL Ratio, Nonfasting 3.13 mg/dL High NINF - 2.54 mg/dL [facility] Comment on above: Reference: 1. National Cholesterol Education Program ATP III Guideline At-A-Glance Quick Desk Reference: National Heart, Lung, and Blood [place]. National Institutes of Health. 2001: NIH Publication No. 01-3305. 2. An International Atherosclerosis Society position paper: global recommendations for the management of dyslipidemia: executive summary, Atherosclerosis. 2014: 232(2):410-413. Non HDL Cholesterol, Nonfasting 159 mg/dL High NINF - 130 mg/dL [facility] Comment on above: <130 mg/dL, Optimal 130-159 mg/dL, Near optimal/above optimal 160-189 mg/dL, Borderline high 190-219 mg/dL, High >219 mg/dL, Very high Secondary prevention optimal non HDL Cholesterol levels are recommended to be <100 mg/dL Total Chol/HDL Ratio, Nonfasting 4.46 mg/dL NINF - 5.10 mg/dL [facility] Triglycerides, Nonfasting 75 mg/dL NINF - 150 mg/dL [facility] Comment on above: <150 mg/dL, Normal 150-199 mg/dL, Borderline high 200-499 mg/dL, High >499 mg/dL, Very high VLDL Cholesterol, Nonfasting 15 mg/dL NINF - 30 mg/dL [facility] No Panel Informationon 10-04 [facility] Urinalysis complete panel (U )on 10-05-2023 Bacteria LM.HPF (Urine sed) [#/Area] Negative Negative /HPF [facility] Bilirubin Ql (U) Negative Negative [facility] Clarity (Unsp spec) Clear Clear [facility] Color (U) Yellow Yellow [facility] Epithelial cells LM.HPF (Urine sed) [#/Area] None Seen /HPF [facility] Glucose Test strip (U) [Mass/Vol] Negative Negative [facility] Hemoglobin Ql (U) Negative Negative [facility] Hyaline casts (Urine sed) [#/Area] 1-3 /LPF Abnormal 0 /LPF [facility] Interpretation and review of laboratory results Abnormal [facility] Ketones Ql (U) Negative Negative [facility] Leukocyte esterase Test strip Ql (U) Negative Negative [facility] Nitrite Ql (U) Negative Negative [facility] pH (U) 5.5 [pH] NINF - 8.5 [facility] Protein (U) [Mass/Vol] Negative Negative [facility] RBC LM.HPF (Urine sed) [#/Area] 0-2 /HPF 0-2 /HPF [facility] Specific gravity (U) [Rel density] 1.020 1.005 - 1.030 [facility] Urobilinogen Ql (U) 0.2 EU/dL 0.2-1.0 EU/dL [facility] WBC LM.HPF (Urine sed) [#/Area] 0-5 /HPF 0-5 /HPF [facility] This test was rome main and its performance characteristics determined by [facility]'s [facility] Pathology and Laboratory Medicine [place] ([facility]). It has not been cleared or approved by the FDA. [facility] is regulated under CLIA as qualified to perform high-complexity testing. This test is used for clinical purposes. It should not be regarded as investigational or for research. [facility] XR Chest PA and Lateralon IMPRESSION: Persistent bilateral pleural effusions. A follow-up exam is recommended. Credit Card Specialist: MORGAN Transcribe Date/Time: Sep 15 2023 9:09A Dictated by : TA VERGARA MD This examination was interpreted and the report reviewed and electronically signed by: TA VERGARA MD on Sep 15 2023 9:10AM [facility] DIVISION OF RADIOLOGY * * *Final [...] DIVISION OF RADIOLOGY Provider, [facility] - 09/15/2023 * * *Final [...] pleural effusions. A follow-up exam is recommended. Credit Card Specialist: MORGAN Transcribe Date/Time: Sep 15 2023 9:09A Dictated by : TA VERGARA MD This examination was interpreted and the report reviewed and electronically signed by: TA VERGARA MD on Sep 15 2023 9:10AM EST [facility] XR Chest PA and LateralOrder ed By: Ccf Provider on 09-15-2023 [facility] XR Chest PA and Lateralon Radiology Study observation (narrative) [facility] MR Thoracic spine WO and [...] crest and there are 5 lumbar-type vertebrae. Credit Card Specialist: [facility] Transcribe Date/Time: Sep 10 2023 9:48A Dictated by : ROMERO ROCHA MD This examination was interpreted and the report reviewed and electronically signed by: ROMERO ROCHA MD on Sep 10 2023 10:00AM EST DIVISION OF RADIOLOGY * * *Final Report* * * DATE OF EXAM: Sep 10 2023 9:38AM [facility] 0326 - MRI THORACIC SPINE [...] DIVISION OF RADIOLOGY Provider, [facility] - 09/10/2023 * * *Final Report* * * DATE OF EXAM: Sep 10 2023 9:38AM [facility] 0326 - MRI THORACIC SPINE [...] crest and there are 5 lumbar-type vertebrae. Credit Card Specialist: [facility] Transcribe Date/Time: Sep 10 2023 9:48A Dictated by : ROMERO ROCHA MD This examination was interpreted and the report reviewed and electronically signed by: ROMERO ROCHA MD on Sep 10 2023 10:00AM EST [facility] Radiology Study observation (narrative) [facility] MR Thoracic spine WO and W c ontrast IVOrdered By: Ccf Provider on 09-10-2023 [facility] NM Biliary ducts and Gallbla dder Views for patency of biliary structures and ejection fraction W sincalide and W radionuclide Leonila 06-28-2023 [facility] ANES POSTPROC EVALon 024 ANES POSTPROC EVAL HNO ID: [id number] Author: CONG CHEW MD Service: Anesthesiology Author Type: Physician Type: Anesthesia Postprocedure Evaluation Filed: 06/05/2023 14:44 Note Text: POST ANESTHESIA EVALUATION NOTE : 1955 Procedure Summary Date: 06/05/23 Room / Location: [facility] Anesthesia Start: 1342 Anesthesia Stop: 1435 [...] June 05, 2023 TIME: 2:44 PM CSN: [id number] [facility] ANES PRE-OPon 06-05-2023 ANES PRE-OP HNO ID: [id number] Author: CONG CHEW MD Service: Anesthesiology Author Type: Physician Type: Anesthesia Preprocedure Evaluation Filed: 06/05/2023 13:22 Note Text: ANESTHESIOLOGY DAY OF SURGERY NOTE : 1955 Procedure Information Date/Time: 06/05/23 1300 Scheduled providers: Amos Rangel MD Procedure: EGD - THERAPEUTIC, EUS, OR TUBE INTERVENTIONS Location: [facility] Estimated body mass index is 28.5 kg/m? as calculated from the following: Height as of this encounter: 175.3 cm (5' 9). Weight as of this encounter: 87.5 kg (193 lb). Most recent hematocrit and potassium results: Hematocrit 42.2 02/13/2023 Potassium 4.0 02/13/2023 Relevant Problems CARDIO (+) Aortic valve stenosis (+) Coronary 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 (+) Essential [...] MIST) 0.65 % nasal spray Use 1 [place] in the nose as needed for cold/allergy [...] June 05, 2023 TIME: 1:21 PM CSN: [id number] [facility] EGD Study observation Narrat iveon 06-05-2023 [facility] HISTORY PHYSICALon HISTORY PHYSICAL HNO ID: [id number] Author: ARUNA MENDEZ APRN.CNP Service: Nursing Author [...] Esophageal Adenocarcinoma (Hcc) Coronary Artery Disease Involving [place] Coronary Artery Without Angina Pectoris [place] (Actinic Keratosis) Medicare Annual Wellness Visit, Subsequent Pleural Effusion Advance Directive Discussed With Patient Medication Management Prostate Disorder Decreased Sexual Desire [employer]'s Nodules Primary Insomnia Pre-Op Exam Subjective CHIEF [...] of right wrist Coronary 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 Seeing Dr. 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 03/30/2023 Will try pamelor Pleural effusion [...] COLONOSCOPY W/BIOPSY SINGLE/MULTIPLE 02/22/2007 Diminutive polyp distal [id number] ECHO 01/08/2021 EGD 04/15/2020 HEART CATHETERIZATION 12/2018 with 2 stents IMPLANT MESH OPN HERNIA RPR/DEBRIDEMENT CLOSURE 03/06/2007 LAPAROSCOPY SURG RPR INITIAL INGUINAL HERNIA 03/06/2007 umbilical NM CARDIAC STRESS TEST 01/08/2021 PAST SURGICAL HISTORY OF Right 2016 incision and drainage right axillary abscess REPAIR ANORECTAL FISTULA W/PLUG 12/06/2016 REPAIR FIRST ABDOMINAL WALL HERNIA 1 (more content not included)... [facility] SURGICAL PATHOLOGYon 024 CASE REPORT [facility] Comment on above: Order Comment: Speci men Type: TISSUE SPECIMEN Ordering Facility: [facility] Address: [address] [place] [address] Result Comment: Surg ical Pathology Report Case: [id number] Authorizing Provider: Amos Rangel MD Collected: 06/05/2023 02:26 PM Ordering Location: [facility] Received: 06/06/2023 10:11 AM Pathologist: Angelica Hernandez MD Specimen: ESOPHAGOGASTRIC JUNCTION BIOPSY, @27 cm Performed By: #### S #### [facility] CLIA [id number] [address] [place] [address] FINAL DIAGNOSIS [facility] Comment on above: Order Comment: Speci men Type: TISSUE SPECIMEN Ordering Facility: [facility] Address: [address] [place] [address] Result Comment: A. E sophagogastric junction at 27 cm, biopsy: -- Fragments of squamous epithelium with no significant histopathologic abnormalities. -- Detached strips of columnar surface and glandular epithelium with no significant histopathologic abnormalities; fragmentation precludes further evaluation. Performed By: #### S #### [facility] CLIA [id number] [address] [place] [address] FINAL PERFORMING LAB [facility] Comment on above: Order Comment: Speci men Type: TISSUE SPECIMEN Ordering Facility: [facility] Address: [address] [place] [address] Result Comment: Diag nostic interpretation performed at [facility], [address] [place] [address] CLIA# [id number] Finishing Technician: Nikita Ventura M.D. Performed By: #### S #### [facility] CLIA [id number] [address] [place] [address] GROSS DESCRIPTION [facility] Comment on above: Order Comment: Speci men Type: TISSUE SPECIMEN Ordering Facility: [facility] Address: [address] [place] [address] Result Comment: A. E SOPHAGOGASTRIC JUNCTION BIOPSY Received in formalin labeled esophagogastric junction biopsy at 27 cm are multiple pieces of fitzgerald, soft tissue aggregating to 1.1 x 0.3 x 0.1 cm. Totally submitted in one cassette. Gross examination performed at [facility], [address] [place] [address] CLIA# [id number] [facility] June 06, 2023 12:37 PM Performed By: #### S #### [facility] CLIA [id number] [address] [place] [id number] [place] [facility] Upper EUSon 06-05-2023 Upper EUS [facility] Gastrointestinal Endoscopy Patient Name: Jacob Landa Procedure Date: 06/05/2023 1:20 PM Date of : 1955 Admit Type: Outpatient Room: [place] [address] Gender: Male Note Status: Finalized Attending MD: Amos Rangel MD, [id number] Procedure: Upper EUS Indications: Abnormal abdominal PET [...] path results. Procedure Code(s): --- Professional --- 68249, Esophagogastroduodenoscopy , flexible, transoral; with endoscopic ultrasound examination limited to the esophagus, stomach or duodenum, and adjacent structures 95448, Esophagogastroduodenoscopy , flexible, transoral; with biopsy, single or multiple --- Technical --- 42675, Esophagogastroduodenoscopy , flexible, transoral; with endoscopic ultrasound examination limited to the esophagus, stomach or duodenum, and adjacent structures 13118, Esophagogastroduodenoscopy , flexible, transoral; with biopsy, single or multiple Diagnosis Code(s): --- Professional --- Z98.890, Other specified postprocedural states R93.5, Abnormal findings on diagnostic imaging of other abdominal regions, including retroperitoneum --- Technical --- Z98.890, Other specified postprocedural states R93.5, Abnormal findings on diagnostic imaging of other abdominal regions, including retroperitoneum CPT copyright 2020 [place] [employer]. All rights reserved. The codes documented in this report are preliminary and upon news videographer review may be revised to meet current compliance requirements. Attending Participation: I personally performed the entire procedure. Scope In: 1:48:55 PM Scope Out: 2:24:20 PM MD Amos Oneill MD 06/05/2023 2:35:39 PM This repor (more content not included)... [facility] CNPNon 06-04-2023 CNPN Telephone (AGGASTACC ) -- SYEDAJACOB [place] ([id number]) 1955 M Date Time Provider Department 06/04/23 [...] Allergies) Date Reviewed: 05/07/2023 Reviewed by: Jazmyn Richardson RN - Fully Assessed Reason for Visit: Appointment [186] Primary Visit Diagnosis: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] Order(s):EGD - THERAPEUTIC, EUS, OR TUBE INTERVENTIONS [GI2] Order #: [id number] FUTURE Prescriptions as of 06/04/2023 - pantoprazole DR (PROTONIX) 40 mg tablet Take 1 tablet by mouth two times a day. - nortriptyline (PAMELOR) 10 mg capsule Take 1 capsule by mouth daily at bedtime. - sodium chloride (SALINE MIST) 0.65 % nasal spray Use 1 [place] in the nose as needed for cold/allergy [...] (HCC) [C15.9] 08/09/2020 Coronary artery disease involving [place] crisostomo* On tube feeding diet [Z78.9] 08/14/2020 01/13/2021 [place] (actinic keratosis) [L57.0] 09/07/2020 Medicare annual wellness visit, subsequent [Z00*01/13/2021 Pleural effusion [J90] 03/11/2021 Advance directive discussed with patient [Z71.8*02/09/2022 Medication management [Z79.899] 02/09/2022 Prostate disorder [N42.9] 02/09/2022 Decreased sexual desire [F52.0] 02/09/2022 [employer]'s nodules [L28.1] 03/30/2023 Primary insomnia [F51.01] 03/30/2023 Encounter Status:Closed by CHRISTIANO TAYLOR on 06/04/23 [facility] ANES POSTPROC EVALon 024 ANES POSTPROC EVAL HNO ID: [id number] Author: LARRY ROONEY MD Service: Anesthesiology Author Type: Anesthesiologist Type: Anesthesia Postprocedure Evaluation Filed: 05/07/2023 09:04 Note Text: POST ANESTHESIA EVALUATION NOTE : 1955 Procedure Summary Date: 05/07/23 Room / Location: [facility] Anesthesia Start: 813 Anesthesia Stop: 838 Procedure: EGD - THERAPEUTIC, [...] May 07, 2023 TIME: 9:04 AM CSN: [id number] [facility] ANES PRE-OPon 05-07-2023 ANES PRE-OP HNO ID: [id number] Author: LARRY ROONEY MD Service: Anesthesiology Author Type: Anesthesiologist Type: Anesthesia Preprocedure Evaluation Filed: 05/07/2023 07:39 Note Text: ANESTHESIOLOGY DAY OF SURGERY NOTE : 1955 Procedure Information Date/Time: 05/07/23 0800 Scheduled providers: Jurgen Bocanegra MD Procedure: EGD - THERAPEUTIC, EUS, OR TUBE INTERVENTIONS Location: [facility] Estimated body mass index is 29.65 kg/m? as calculated from the following: Height as of 05/01/23: 172.7 cm (5' 8). Weight as of 05/01/23: 88.5 kg (195 lb). Most recent hematocrit and potassium results: Hematocrit 42.2 02/13/2023 Potassium 4.0 02/13/2023 Relevant Problems CARDIO (+) Aortic valve stenosis (+) Coronary 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 (+) Essential [...] MIST) 0.65 % nasal spray Use 1 [place] in the nose as needed for cold/allergy [...] May 07, 2023 TIME: 7:39 AM CSN: [id number] [facility] HISTORY PHYSICALon HISTORY PHYSICAL HNO ID: [id number] Author: JORDANA KINGSTON APRN.LIFE MANAGEMENT TEACHER Service: Anesthesiology Author Type: Nurse Practitioner Type: H&P Filed: 05/07/2023 07:05 Note Text: HANDP completed 04/25/[address] Bocanegra. [facility] SURGICAL PATHOLOGYon 024 CASE REPORT [facility] Comment on above: Order Comment: Ehsan nunes Type: TISSUE SPECIMENOrdering Facility: [facility] Address: [address] [place] [address] Result Comment: Surg ica Pathology Report Case: [id number] Authorizing Provider: Jurgen Bocanegra MD Collected: 05/07/2023 08:24 AM Ordering Location: [facility] Received: 05/08/2023 12:48 PM Pathologist: José Miguel Eugene MD Specimen: ESOPHAGOGASTRIC JUNCTION RESECTION Performed By: #### S ####[facility] [id number] [place] [address] [place] FINAL DIAGNOSIS [facility] Comment on above: Order Comment: Ehsan nunes Type: TISSUE SPECIMENOrdering Facility: [facility] Address: [address] [place] [address] Result Comment: A. E sophagogastric junction, biopsy: - Fragment of gastric-type glandular mucosa with mild chronic inflammation and separate fragments of esophageal squamous mucosa with no histopathologic abnormality. - There is no evidence of residual/recurrent adenocarcinoma, intestinal metaplasia or dysplasia. Performed By: #### S ####[facility] [id number] [address] FINAL PERFORMING LAB [facility] Comment on above: Order Comment: Speci men Type: TISSUE SPECIMENOrdering Facility: [facility] Address: [address] [place] [address] Result Comment: Diag nostic interpretation performed at [facility], [address] [place] [address] CLIA# [id number] Finishing Technician: Nikita Ventura M.D. Performed By: #### S ####[facility] [id number] [address] GROSS DESCRIPTION [facility] Comment on above: Order Comment: Speci men Type: TISSUE SPECIMENOrdering Facility: [facility] Address: [address] [place] [address] Result Comment: A. E SOPHAGOGASTRIC JUNCTION RESECTION Received in formalin labeled esophagogastric junction are 3 irregular fitzgerald soft tissue fragments aggregating to 0.3 x 0.3 x 0.2 cm. The specimen is submitted entirely in A1. Gross examination performed at [facility], [address] [place] [address] CLIA#[id number] OLS May 08, 2023 2:41 PM Performed By: #### S ####[facility] LABORATORYCLIA [id number] [address] Upper GI endoscopyon 024 Upper GI endoscopy [facility] Gastrointestinal Endoscopy Patient Name: Jacob Landa Procedure Date: 05/07/2023 7:30 AM Date of : 1955 Admit Type: Outpatient Room: [place] [address] Gender: Male Note Status: Finalized Attending MD: Jurgen Bocanegra MD, [id number] Procedure: Upper GI endoscopy Indications: Diagnostic procedure [...] antiplatelet agents. Procedure Code(s): --- Professional --- 71465, Esophagogastroduodenoscopy , flexible, transoral; with biopsy, single or multiple --- Technical --- 23341, Esophagogastroduodenoscopy , flexible, transoral; with biopsy, single or multiple CPT copyright 2020 [employer]. All rights reserved. The codes documented in this report are preliminary and upon news videographer review may be revised to meet current compliance requirements. Attending Participation: I personally performed the entire procedure. Scope In: 8:18:27 AM Scope Out: 8:29:15 AM MD Jurgen Bennett MD 05/07/2023 8:42:29 AM This report has been signed electronically by Jurgen Bocanegra MD Number of Addenda: 0 Note Initiated On: 05/07/2023 7:30 AM Normal [facility] CNOVon 04-25-2023 CNOV Office Visit (AGGENS 3) -- JACOB LANDA ([id number]) 1955 M Date Time Provider Department 04/25/23 2:00 PM JURGEN BOCANEGRA AGGENS3 During your visit today, we recorded the following information about you: Pulse Blood pressure Weight Height 91/minute 122/81 88.5 kg 1.727 m Jurgen Bocanegra MD 04/26/2023 4:22 PM Signed Jurgen Bocanegra M.D. Surgical Oncology 1 [facility], [facility] [address] [address] SUBJECTIVE HPI Jacob R Syeda is a 68 year old male presenting for evaluation of esophageal cancer. Patient presented with dysphagia which prompted an EGD in early 2020. This demonstrated a distal esophageal adenocarcinoma. His workup did not demonstrate any metastatic disease and he was felt to have T3 N1 cancer. This prompted chemoradiation which completed in June 23, 2020. He then underwent an [place] esophagectomy in August 2020 for which [...] this may be related to when he overdoes it. Review of Systems Constitutional: Positive for malaise/fatigue. [...] of right wrist Coronary 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 Seeing Dr. [...] 11/17/2020 Personal history of colonic polyps 12/27/2009 [employer]'s nodules 03/30/2023 Will try pamelor Pleural effusion [...] COLONOSCOPY W/BIOPSY SINGLE/MULTIPLE 02/22/2007 Diminutive polyp distal [id number] ECHO 01/08/2021 EGD 04/15/2020 HEART CATHETERIZATION 12/2018 with 2 stents IMPLANT MESH OPN HERNIA RPR/DEBRIDEMENT CLOSURE 03/06/2007 LAPAROSCOPY SURG RPR INITIAL INGUINAL HERNIA 03/06/2007 umbilical NM CARDIAC STRESS TEST 01/08/2021 PAST SURGICAL HISTORY OF Right 2016 incision and drainage right axillary a (more content not included)... Normal [facility] CNPNon 04-18-2023 CNPN Telephone (IRRFV) -- JACOB LANDA ([id number]) 1955 M Date Time Provider Department 04/18/23 JESSICA MARTINES IRRMARIYA During your visit today, we recorded the [...] MIST) 0.65 % nasal spray Use 1 [place] in the nose as needed for cold/allergy [...] (HCC) [C15.9] 08/09/2020 Coronary artery disease involving [place] crisostomo* On tube feeding diet [Z78.9] 08/14/2020 01/13/2021 AK (actinic keratosis) [L57.0] 09/07/2020 Medicare annual wellness visit, subsequent [Z00*01/13/2021 Pleural effusion [J90] 03/11/2021 Advance directive discussed with patient [Z71.8*02/09/2022 Medication management [Z79.899] 02/09/2022 Prostate disorder [N42.9] 02/09/2022 Decreased sexual desire [F52.0] 02/09/2022 [employer]'s nodules [L28.1] 03/30/2023 Primary insomnia [F51.01] 03/30/2023 Encounter Status:Closed by JESSICA MARTINES on 04/18/23 [facility] CBC W Auto Differential pane l (Bld)on 02-13-2023 Basophils (Bld) [#/Vol] 0.04 10*3/uL <0.11 k/uL [facility] Basophils/100 WBC (Bld) 0.9 % [facility] Differential cell count method Nom (Bld) Auto [facility] Eosinophils (Bld) [#/Vol] 0.17 10*3/uL <0.46 k/uL [facility] Eosinophils/100 WBC (Bld) 3.7 % [facility] Erythrocyte distribution width (RBC) [Ratio] 14.6 % 11.5 - 15.0 % [facility] Hematocrit (Bld) [Volume fraction] 42.2 % 39.0 - 51.0 % [facility] Hemoglobin (Bld) [Mass/Vol] 13.6 g/dL 13.0 - 17.0 g/dL [facility] Immature granulocytes (Bld) [#/Vol] <0.10 k/uL [facility] Immature granulocytes/100 WBC (Bld) 0.4 % [facility] Lymphocytes (Bld) [#/Vol] 0.77 10*3/uL Low 1.00 - 4.00 k/uL [facility] Lymphocytes/100 WBC (Bld) 16.7 % [facility] MCH (RBC) [Entitic mass] 27.2 pg 26.0 - 34.0 pg [facility] MCHC (RBC) [Mass/Vol] 32.2 g/dL 30.5 - 36.0 g/dL [facility] MCV (RBC) [Entitic vol] 84.4 fL 80.0 - 100.0 fL [facility] Monocytes (Bld) [#/Vol] 0.40 10*3/uL <0.87 k/uL [facility] Monocytes/100 WBC (Bld) 8.7 % [facility] Neutrophils (Bld) [#/Vol] 3.22 10*3/uL 1.45 - 7.50 k/uL [facility] Neutrophils/100 WBC (Bld) 69.6 % [facility] Nucleated RBC (Bld) [#/Vol] <0.01 k/uL [facility] Nucleated RBC/100 WBC (Bld) [Ratio] 0.0 /100 WBC [facility] Platelet mean volume (Bld) [Entitic vol] 9.7 fL 9.0 - 12.7 fL [facility] Platelets (Bld) [#/Vol] 158 10*3/uL 150 - 400 k/uL [facility] RBC (Bld) [#/Vol] 5.00 10*6/uL 4.20 - 6.0 0 m/uL [facility] WBC (Bld) [#/Vol] 4.62 10*3/uL 3.70 - 11. 00 k/uL [facility] Comprehensive metabolic 2000 panelon 02-13-2023 Albumin [Mass/Vol] 3.9 g/dL 3.9 - 4.9 g/dL [facility] ALP [Catalytic activity/Vol] 84 U/L 38 - 113 U/L [facility] ALT [Catalytic activity/Vol] 13 U/L 10 - 54 U/L [facility] Anion gap [Moles/Vol] 7 mmol/L Low 9 - 18 mmol/L [facility] AST [Catalytic activity/Vol] 14 U/L 14 - 40 U/L [facility] Bilirubin [Mass/Vol] 0.6 mg/dL 0.2 - 1 .3 mg/dL [facility] Calcium [Mass/Vol] 9.0 mg/dL 8.5 - 10. 2 mg/dL [facility] Chloride [Moles/Vol] 104 mmol/L 97 - 10 5 mmol/L [facility] CO2 [Moles/Vol] 27 mmol/L 22 - 30 mmol/L [facility] Creatinine [Mass/Vol] 0.95 mg/dL 0.73 - 1.22 mg/dL [facility] Estimated Glomerular Filtration Rate 87 mL/min/1.73m >=60 mL/min/1.73m [facility] Glucose [Mass/Vol] 94 mg/dL 74 - 99 mg/dL [facility] Potassium [Moles/Vol] 4.0 mmol/L 3.7 - 5.1 mmol/L [facility] Protein [Mass/Vol] 6.5 g/dL 6.3 - 8.0 g/dL [facility] Sodium [Moles/Vol] 138 mmol/L 136 - 144 mmol/L [facility] Urea nitrogen [Mass/Vol] 12 mg/dL 9 - 24 mg/dL [facility] Basophil percentageOrdered B y: Angel Whitney on 11-15-2022 Bilirubin [Mass/Vol] 0.70 mg/dL 0.20-1.00 [facility] Comment on above: For patients on eltr ombopag therapy, use of Dimension [place] TBIL is not recommended. Cholesterol [Mass/Vol] 174 mg/dL <200 [facility] Comment on above: <200 mg/dL Desirable 200-240 mg/dL Borderline >240 mg/dL High Risk Protein [Mass/Vol] 6.9 g/dL 6.4-8.2 [facility] Triglyceride [Mass/Vol] 85 mg/dL <199 [facility] Comment on above: The drugs N-Acetylcy steine and Metamizole may falsely depress this assay.Serum Triglycerides Reference Interval Normal <150 mg/dL Borderline high 150 - 199 mg/dL High 200 - 499 mg/dL Very High > or = 500 mg/dL Direct bilirubinOrdered By: Angel Whitney on 11-15-2022 Bilirubin.direct [Mass/Vol] 0.18 mg/dL 0.00-0.30 [facility] Laboratory - Chemistry and C hemistry - challengeOrdered By: Angel Whitney on 11-15-2022 ALP [Catalytic activity/Vol] 89 U/L 45-117 [facility] ALT [Catalytic activity/Vol] 21 U/L 16-61 [facility] Globulin (S) [Mass/Vol] 3.6 g/dL 2.2-4.2 [facility] Serum or plasma albumin alisha urement (mass/volume)Ordered By: Angel Whitney on 11-15-2022 Albumin [Mass/Vol] 3.3 g/dL 3.2-5.0 [facility] Serum or plasma cholesterol in HDL measurement (mass/volume)Ordered By: Angel Whitney on 11-15-2022 Cholesterol in HDL [Mass/Vol] 53 mg/dL >40 [facility] Comment on above: The drugs N-Acetylcy steine and Metamizole may falsely depress this assay. Reference Range HDL <40 mg/dL Low HDL Cholesterol HDL >or= 60 mg/dL High HDL Cholesterol Serum or plasma cholesterol in VLDL measurement (mass/volume)Ordered By: Angel Whitney on 11-15-2022 Cholesterol in VLDL [Mass/Vol] 17 mg/dL 5-40 [facility] Serum or plasma low density lipoprotein (LDL) cholesterol measurement (mass/volume)Ordered By: Angel Whitney on 11-15-2022 Cholesterol in LDL [Mass/Vol] 104 mg/dL 0-130 [facility] Thin prep Papanicolaou smear with manual screeningOrdered By: Angel Whitney on 11-15-2022 Thin prep Papanicolaou smear with manual screening 15 U/L 15-37 [facility] EGD DIAGNOSTICon 08-02-2022 [facility] Basophil percentageOrdered B y: Dr. Danielle on 07-24-2022 Chloride [Moles/Vol] 108 mmol/L 98-107 [facility] Glucose [Mass/Vol] 97 mg/dL 74-106 [facility] Potassium [Moles/Vol] 3.9 mmol/L 3.5-5.1 [facility] Sodium [Moles/Vol] 138 mmol/L 136-145 [facility] Laboratory - Chemistry and C hemistry - challengeOrdered By: Dr. Danielle on 07-24-2022 CO2 [Moles/Vol] 27.0 mmol/L 21.0-32.0 [facility] Urea nitrogen/Creatinine [Mass ratio] 14.0 mg/mg 10-20 [facility] No Panel InformationOrdered By: Dr. Danielle on 07-24-2022 Estimated GFR (MDRD) Amer 96 mL/min >60 [facility] Comment on above: GFR Calc Estimated GFR (MDRD) Non-Af Amer 79 mL/min >60 [facility] Comment on above: Non- GFR Calc Prostate Specific Antigen Total 2.19 ng/mL 0.0-4.0 [facility] Comment on above: This test was perfor med using the TPSA assay method for [employer] chemistry system. Values obtained with differentassay methods cannot be used interchangably.When changing PSA assays in the course of monitoring apatient, additional sequential testing should be carriedout to confirm baseline values. Serum or plasma calcium alisha urement (mass/volume)Ordered By: Dr. Danielle on 07-24-2022 Calcium [Mass/Vol] 8.7 mg/dL 8.5-10.1 [facility] Serum or plasma creatinine m easurement (mass/volume)Ordered By: Dr. Danielle on 07-24-2022 Creatinine [Mass/Vol] 1.00 mg/dL 0.70-1.30 [facility] Comment on above: The validity of the calculated GFR & GFRAA in patients over 70 years has not been determined. Clinical correlation is essential. Serum or plasma urea nitroge n measurement (mass/volume)Ordered By: Dr. Danielle on 07-24-2022 Urea nitrogen [Mass/Vol] 14 mg/dL 7-18 [facility] Thin prep Papanicolaou smear with manual screeningOrdered By: Dr. Danielle on 07-24-2022 Thin prep Papanicolaou smear with manual screening 3 5-15 [facility] Absolute lymphocyte countOrd ered By: ED PROVIDER on 06-23-2022 Lymphocytes Auto (Unsp spec) [#/Vol] 0.55 10*3/uL 0.83-4.51 [facility] Basophil percentageOrdered B y: ED PROVIDER on 06-23-2022 Basophil percentage 0-5 SEEN /hpf 0-5 [facility] Basophils/100 WBC (Bld) 0.3 % 0-1 [facility] Chloride [Moles/Vol] 106 mmol/L 98-107 [facility] Eosinophils/100 WBC (Bld) 0.4 % 0-5 [facility] Glucose [Mass/Vol] 115 mg/dL 74-106 [facility] Comment on above: Fasting Glucose resu lt from 100 to 125 mg/dL suggests IMPAIRED HOMEOSTASIS per A.D.A. criteria. Neutrophils (Bld) [#/Vol] 8.1 10*3/uL 2.0-7.7 [facility] Neutrophils/100 WBC (Bld) 85.0 % 47-70 [facility] Potassium [Moles/Vol] 4.6 mmol/L 3.5-5.1 [facility] Sodium [Moles/Vol] 140 mmol/L 136-145 [facility] WBC (Bld) [#/Vol] 9.5 10*3/uL 4.4-11.0 [facility] Basophil percentageOrdered B y: Dr. Roberts on 06-23-2022 Bilirubin [Mass/Vol] 1.10 mg/dL 0.20-1.00 [facility] Comment on above: For patients on eltr ombopag therapy, use of Dimension [place] TBIL is not recommended. Protein [Mass/Vol] 7.2 g/dL 6.4-8.2 [facility] Bilirubin Test strip Ql (U)O rdered By: ED PROVIDER on 06-23-2022 Bilirubin Ql (U) Negative Negative [facility] Blood erythrocytes count (nu mber/volume)Ordered By: ED PROVIDER on 06-23-2022 RBC (Bld) [#/Vol] 5.00 10*6/uL 4.6-6.2 [facility] Blood hemoglobin measurement (mass/volume)Ordered By: ED PROVIDER on 06-23-2022 Hemoglobin (Bld) [Mass/Vol] 13.4 g/dL 13.0-16.5 [facility] Blood lymphocytes/100 leukoc ytesOrdered By: ED PROVIDER on 06-23-2022 Lymphocytes/100 WBC (Bld) 5.8 % 19-41 [facility] Blood manual differential co mment interpretation (narrative result)Ordered By: ED PROVIDER on 06-23-2022 Manual differential comment Servando (Bld) [Interp] SCANNED [facility] Comment on above: LYMPHOPENIA Blood monocytes/100 leukocyt esOrdered By: ED PROVIDER on 06-23-2022 Monocytes/100 WBC (Bld) 8.1 % 0-10 [facility] Blood platelet mean volumeOr dered By: ED PROVIDER on 06-23-2022 Platelet mean volume (Bld) [Entitic vol] 9.8 fL 6.2-12.0 [facility] Determination of erythrocyte mean corpuscular volume (MCV)Ordered By: ED PROVIDER on 06-23-2022 MCV (RBC) [Entitic vol] 85.2 fL 80-94 [facility] Direct bilirubinOrdered By: Dr. Roberts on 06-23-2022 Bilirubin.direct [Mass/Vol] 0.28 mg/dL 0.00-0.30 [facility] Hematocrit Auto (Bld) [Volum e fraction]Ordered By: ED PROVIDER on 06-23-2022 Hematocrit (Bld) [Volume fraction] 42.6 % 40-54 [facility] Ketones Test strip Ql (U)Ord ered By: ED PROVIDER on 06-23-2022 Ketones Ql (U) 5 mg/dl Negative [facility] Laboratory - Chemistry and C hemistry - challengeOrdered By: Dr. Roberts on 06-23-2022 ALP [Catalytic activity/Vol] 113 U/L 45-117 [facility] ALT [Catalytic activity/Vol] 36 U/L 16-61 [facility] Globulin (S) [Mass/Vol] 3.6 g/dL 2.2-4.2 [facility] Lipase [Catalytic activity/Vol] 63 U/L 73-393 [facility] Laboratory - Chemistry and C hemistry - challengeOrdered By: ED PROVIDER on 06-23-2022 CO2 [Moles/Vol] 28.0 mmol/L 21.0-32.0 [facility] Urea nitrogen/Creatinine [Mass ratio] 10.7 mg/mg 10-20 [facility] Laboratory - Hematology and Cell countsOrdered By: ED PROVIDER on 06-23-2022 Erythrocyte distribution width (RBC) [Entitic vol] 44.3 fL 35.1-43.9 [facility] Erythrocyte distribution width (RBC) [Ratio] 14.4 % 11.6-14.6 [facility] Immature granulocytes/100 WBC (Bld) 0.400 % 0.0-0.9 [facility] Comment on above: IG% - Immature Granu locytes (promyelocytes, myelocytes and metamyelocytes) > 1% indicates that a LEFT SHIFT is Present. MCH (RBC) [Entitic mass] 26.8 pg 27.0-32.0 [facility] Nucleated RBC/100 WBC (Bld) [Ratio] 0 % 0-5 [facility] MCHC Auto (RBC) [Mass/Vol]Or dered By: ED PROVIDER on 06-23-2022 MCHC (RBC) [Mass/Vol] 31.5 g/dL 32-36 [facility] Mucus LM Ql (Urine sed)Order ed By: ED PROVIDER on 06-23-2022 Mucus Ql (Urine sed) 1+ /hpf [facility] Nitrite Test strip Ql (U)Ord ered By: ED PROVIDER on 06-23-2022 Nitrite Ql (U) Negative Negative [facility] No Panel InformationOrdered By: ED PROVIDER on 06-23-2022 Estimated Creatinine Clearance Calc 43.20 ml/min [facility] Estimated GFR (MDRD) Amer 52 mL/min >60 [facility] Comment on above: GFR Calc Estimated GFR (MDRD) Non-Af Amer 43 mL/min >60 [facility] Comment on above: Non- GFR Calc Platelets bldOrdered By: ED PROVIDER on 06-23-2022 Platelets (Bld) [#/Vol] 173 10*3/uL 150-450 [facility] Protein Test strip Ql (U)Ord ered By: ED PROVIDER on 06-23-2022 Protein Ql (U) 15 mg/dl Negative [facility] Serum or plasma albumin alisha urement (mass/volume)Ordered By: Dr. Roberts on 06-23-2022 Albumin [Mass/Vol] 3.6 g/dL 3.2-5.0 [facility] Serum or plasma calcium alisha urement (mass/volume)Ordered By: ED PROVIDER on 06-23-2022 Calcium [Mass/Vol] 9.5 mg/dL 8.5-10.1 [facility] Serum or plasma creatinine m easurement (mass/volume)Ordered By: ED PROVIDER on 06-23-2022 Creatinine [Mass/Vol] 1.69 mg/dL 0.70-1.30 [facility] Comment on above: The validity of the calculated GFR & GFRAA in patients over 70 years has not been determined. Clinical correlation is essential. Serum or plasma urea nitroge n measurement (mass/volume)Ordered By: ED PROVIDER on 06-23-2022 Urea nitrogen [Mass/Vol] 18 mg/dL 7-18 [facility] Squamous epithelial cells de tection in urine sediment by light microscopyOrdered By: ED PROVIDER on 06-23-2022 Epithelial cells.squamous LM Ql (Urine sed) 0 SEEN /hpf 0-5 [facility] Thin prep Papanicolaou smear with manual screeningOrdered By: Dr. Roberts on 06-23-2022 Thin prep Papanicolaou smear with manual screening 19 U/L 15-37 [facility] Thin prep Papanicolaou smear with manual screeningOrdered By: ED PROVIDER on 06-23-2022 Thin prep Papanicolaou smear with manual screening 6 5-15 [facility] Urine blood detectionOrdered By: ED PROVIDER on 06-23-2022 RBC Ql (U) 25 /ul Negative [facility] RBC Ql (U) 0 SEEN /hpf 0-5 [facility] Urine clarityOrdered By: ED PROVIDER on 06-23-2022 Clarity (U) Clear Clear [facility] Urine color determinationOrd ered By: ED PROVIDER on 06-23-2022 Color (U) Yellow Yellow [facility] Urine glucose detectionOrder ed By: ED PROVIDER on 06-23-2022 Glucose Ql (U) Normal mg/dl Normal [facility] Urine leukocyte esterase det ection by dipstickOrdered By: ED PROVIDER on 06-23-2022 Leukocyte esterase Test strip Ql (U) 25 /ul Negative [facility] Urine pHOrdered By: ED PROVI TRENA on 06-23-2022 pH (U) 5.0 [pH] 5.0 - 8.0 [facility] Urine sediment bacteria coun t by microscopy (number/high power field)Ordered By: ED PROVIDER on 06-23-2022 Bacteria LM.HPF (Urine sed) [#/Area] 0 /[HPF] None Seen [facility] Urine specific gravity measu rementOrdered By: ED PROVIDER on 06-23-2022 Specific gravity (U) [Rel density] 1.025 1.002-1.030 [facility] Urobilinogen Auto test strip Ql (U)Ordered By: ED PROVIDER on 06-23-2022 Urobilinogen Ql (U) Normal mg/dl Normal [facility] XR RIBS/CHEST 3V AP RIB/OBLS /CXR RIGHTon 06-09-2022 [facility] XR Ribs - right Views and Ch est PAon 06-09-2022 IMPRESSION: 1. No acute fracture 2. Bilateral pleural effusions. Left basilar atelectasis. Credit Card Specialist: PSCB Transcribe Date/Time: Jun 09 2022 3:18P Dictated by : JORDANA SEALS MD This examination was interpreted and the report reviewed and electronically signed by: JORDANA SEALS MD on Jun 09 2022 3:22PM [facility] DIVISION OF RADIOLOGY * * *Final [...] DIVISION OF RADIOLOGY Provider, [facility] - 06/09/2022 * * *Final [...] 2. Bilateral pleural effusions. Left basilar atelectasis. Credit Card Specialist: PSCB Transcribe Date/Time: Jun 09 2022 3:18P Dictated by : JORDANA SEALS MD This examination was interpreted and the report reviewed and electronically signed by: JORDANA SEALS MD on Jun 09 2022 3:22PM EST [facility] Radiology Study observation (narrative) [facility] XR Ribs - right Views and Ch est PAOrdered By: Ccf Provider on 06-09-2022 [facility] No Panel Informationon 05-22 [facility] No Panel Informationon 02-20 [facility] EGD DIAGNOSTICon 11-09-2021 [facility] No Panel Informationon 10-03 [facility] EGD DIAGNOSTICon 09-07-2021 [facility] XR ABDOMEN APon 08-25-2020 XR ABDOMEN AP ORIGINAL XR ABDOMEN AP CLINICAL STATEMENT: j tube placement, please push contrast through j tube. 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 [...] Sign Date: 08/25/2020 6:16:37 PM Ordering Provider:Momo Ellison [facility] ([place]) CNOVon 07-14-2020 CNOV Office Visit ([facility] ) -- JACOB LANDA ([id number]) 1955 M Date Time Provider Department 07/14/20 [...] a cardiac risk assessment from his primary patient accounts specialist and will then plan to see him back following completion of therapy for restaging and surgical planning. ? Plan: 1) Cards clearance from primary patient accounts specialist 2) RTC following completion of induction therapy for restaging and surgical planning ? Today's visit 07/14/2020 BP 135/78 (BP Site: Left Arm, BP Position: Sitting, BP Cuff Size: Large Adult) Pulse 100 Resp 16 Ht 177.8 cm (5' 10) Wt 108 kg (238 lb) SpO2 97% [...] visit with restaging testing on July 09 [facility] or July [address] Chest/Abd/Pelvis Anticipated OR Date: 08/09/2020 MAIN [facility] 08/06/2020 MAIN COVID 08/06/2020 MAIN ? Alisa Estrada RN ? Stress Test 06/25/2020 Conclusion: Normal exercise myocardial perfusion stress test at a moderate workload with no evidence of ischemia. Good functional capacity. No angina noted. ? OPD note 06/25/2020 Hem/Onc ? ? Referring Provider: RENETTA RADFORD [[id number]] Allergies As of Date: 07/14/2020 Noted Allergy [...] W/O GANGRENE (more content not included)... Normal CT ABD/PEL W IVCONon 021 CT ABD/PEL [...] chest CT performed will be reported separately. Welder (topogram) images: No additional findings. IMPRESSION: Stable exam. No metastatic disease in the abdomen or pelvis. Transcribed Using Voice Recognition Transcribe Date/Time: Jul 14 2020 3:58P Dictated by: BENITO ALBRIGHT MD This examination was interpreted and the report reviewed and electronically signed by: BENITO ALBRIGHT MD on Jul 14 2020 4:07PM EST [id number] [facility] CT CHEST W IVCONon CT CHEST W IVCON * * *Final Report* * * DATE OF EXAM: Jul 14 2020 12:34PM [facility] 0539 - CT CHEST W IVCON / [...] No abnormality in the imaged upper abdomen. Welder (topogram) images: No additional findings. IMPRESSION: Mildly [...] Jul 15 2020 2:24PM EST [id number] Normal Echo 2D Doppler Coloron 02-08 TRANSTHORACIC ECHOCARDIOGRAM PATIENT: Jacob Landa STUDY DATE: 03/03/2020 : 1955 AGE: 64 HT/WT: 175.3 cm (69 118.8 kg in) (261.4 lb) GENDER: M BP: 108 / 60 LOCATION: [place] [address] [address] STATUS: *ORDERING PHYSICIAN: * 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 *READING PHYSICIAN: * Steve Washington MD, *AIR MOTOR REPAIRER: * Cory Masterson FACC [facility] INDICATIONS: S/p TAVR (Z95.2). CONCLUSIONS SUMMARY: [...] Electronically signed by Steve Washington MD, [facility] 03/03/2020 14:59 Prior Signatures: [facility] [place] [place] Faizan, Mega Incoming Cardiology Results From [employer]/BigTreeramiro - 03/03/2020 2:59 PM EST TRANSTHORACIC ECHOCARDIOGRAM PATIENT: Jacob Landa STUDY DATE: 03/03/2020 : 1955 AGE: 64 HT/WT: 175.3 cm (69 118.8 kg in) (261.4 lb) GENDER: M BP: 108 / 60 LOCATION: [place] [address] [address] STATUS: *ORDERING PHYSICIAN: * 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 *READING PHYSICIAN: * Steve Washington MD, *AIR MOTOR REPAIRER: * Aleja Keenaemmett [facility] RDCS INDICATIONS: S/p TAVR (Z95.2). CONCLUSIONS SUMMARY: 1. [...] Electronically signed by Steve Washington MD, [facility] 03/03/2020 14:59 Prior Signatures[facility] w/wo Contrasto n 03-03-2020 Echo Complete w/wo Contrast Patient Name: JACOB LANDA Ultrasound Exam Date/Time 03/03/2020 13:45:46 EST Exam Echo Complete w/wo Contrast Ordering Physician CORRINE HARDING, VERN Accession Number [id number] Reason For Exam one yr post TAVR Report TRANSTHORACIC ECHOCARDIOGRAM PATIENT: Jacob Landa STUDY DATE: 03/03/2020 : 1955 AGE: 64 HT/WT: 175.3 cm (69 118.8 kg in) (261.4 lb) GENDER: M BP: 108 / 60 LOCATION: [place] [address] [address] STATUS: *ORDERING PHYSICIAN: * 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 *READING PHYSICIAN: * Steve Washington MD, *AIR MOTOR REPAIRER: * Cory Masterson [facility] INDICATIONS: S/p TAVR (Z95.2). CONCLUSIONS SUMMARY: [...] range. Electronically signed by Steve Washington MD, FACC 03/03/2020 14:59 Prior Signatures: Final Dictated: 03/03/2020 2:59 pm Dictating Physician: MD. WASHINGTON FACC, MARK A Signed Date and Time: 03/03/2020 2:59 pm Signed by: MD. WASHINGTON FACC, MARK A Normal [facility] Basic Metabolic Panelon Anion gap [Moles/Vol] 7 Normal [facility] Comment on above: Performed By: #### H MCKINLEY JAIN3 #### [facility] [address], [place] Calcium [Mass/Vol] 9.6 mg/dL Normal 8.4-10.4 [facility] Comment on above: Performed By: #### H MCKINLEY JAIN3 #### [facility] [address], [place] CO2 [Moles/Vol] 29 mmol/L Normal 22-30 [facility] Comment on above: Performed By: #### H MCKINLEY JAIN3 #### [facility] [address], [place] Glucose [Mass/Vol] 93 mg/dL Normal 70-100 [facility] Comment on above: Performed By: #### H SUSY BMP3 #### [place] [address] [address], [place] Urea nitrogen [Mass/Vol] 18 mg/dL Normal 7-20 [facility] Comment on above: Performed By: #### H SUSY BMP3 #### [place] [address] [address], [place] Creatinine [Mass/Vol] 1.23 mg/dL Normal 0.52-1.25 [facility] Comment on above: Performed By: #### H SUSY BMP3 #### [place] [address] [address], [place] GFR/1.73 sq M predicted among blacks MDRD (S/P/Bld) [Vol rate/Area] mL/min/{1.73_m2} Normal >60 [facility] Comment on above: Performed By: #### H SUSY BMP3 #### [place] [address] [address], [place] GFR/1.73 sq M predicted among non-blacks MDRD (S/P/Bld) [Vol rate/Area] 59.0 mL/min/{1.73_m2} Normal >60 [facility] Comment on above: Result Comment: Sour ce- MDRD equation with creatinine calibration to IDMS(NKDEP) eGFR not recommended for drug dose adjustment Performed By: #### H SUSY BMP3 #### [place] [address] [address], [place] Potassium [Moles/Vol] 4.5 mmol/L Normal 3.5-5.1 [facility] Comment on above: Performed By: #### H SUSY BMP3 #### [place] [address] [address], [place] Sodium [Moles/Vol] 138 mmol/L Normal 135-145 [facility] Comment on above: Performed By: #### H SUSY BMP3 #### [place] [address] [address], [place] Chloride [Moles/Vol] 102 mmol/L Normal 98-107 [facility] poLight [facility] Comment on above: Performed By: #### H [facility], [facility]3 #### [facility] [address] [place] [id number] Basic Metabolic PanelOrdered By: 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 on 04-16-2019 Anion gap [Moles/Vol] 7 mmol/L [facility] Work Phone: [phone] Calcium [Mass/Vol] 9.6 mg/dL 8.4 - 10. 4 mg/dL [facility] Work Phone: [phone] Chloride [Moles/Vol] 102 mmol/L 98 - 10 7 mmol/L [facility] Work Phone: [phone] CO2 [Moles/Vol] 29 mmol/L 22 - 30 mmol/L [facility] Work Phone: [phone] Creatinine [Mass/Vol] 1.23 mg/dL 0.52 - 1.25 mg/dL [facility] Work Phone: [phone] EGFR IF NonAfrican Indonesian 59.0 mL/min >60 [facility] Work Phone: [phone] Comment on above: Source- MDRD equatio n with creatinine calibration to IDMS(NKDEP) eGFR not recommended for drug dose adjustment GFR/1.73 sq M.predicted among blacks MDRD (S/P/Bld) [Vol rate/Area] mL/min/{1.73_m2} >60 mL/min [facility] Work Phone: [phone] Glucose [Mass/Vol] 93 mg/dL 70 - 100 mg/dL [facility] Work Phone: [phone] Potassium [Moles/Vol] 4.5 mmol/L 3.5 - 5.1 mmol/L [facility] Work Phone: [phone] Sodium [Moles/Vol] 138 mmol/L 135 - 145 mmol/L [facility] Work Phone: [phone] Urea nitrogen [Mass/Vol] 18 mg/dL 7 - 20 mg/dL [facility] Work Phone: [phone] Test Performed by [facility], [address] [place] [address] [facility] Work Phone: [phone] CBCOrdered By: Vern rao on 04-16-2019 MCHC 33.4 % 32 - 36 % [employer] Work Phone: Test Performed by [facility], [address] [place] [address] [employer] Work Phone: ECHO Complete 2D W Doppler W ColorOrdered By: 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 on 04-16-2019 TRANSTHORACIC ECHOCARDIOGRAM PATIENT: Jacob Lanad STUDY DATE: 04/16/2019 : 1955 AGE: 64 HT/WT: 175.3 cm (69 118.8 kg in) (261.4 lb) GENDER: M BP: 130 / 76 LOCATION: [facility]Light [facility] PATIENT Outpatient [facility] [place] [facility] *ORDERING PHYSICIAN: * 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 *READING PHYSICIAN: * Cong Horton, *AIR MOTOR REPAIRER: * MILTON Shetty DO, [facility] INDICATIONS: Severe aortic stenosis; Coronary ratery 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 [...] Ascending aorta ID/bsa, (more content not included)... [employer] Work Phone: Faizan, Mega Incoming Cardiology Results From Shbanam/Pete - 04/16/2019 5:09 PM EST TRANSTHORACIC ECHOCARDIOGRAM PATIENT: Jacob Landa STUDY DATE: 04/16/2019 : 1955 AGE: 64 HT/WT: 175.3 cm (69 118.8 kg in) (261.4 lb) GENDER: M BP: 130 / 76 LOCATION: [facility] PATIENT Outpatient and [place] STATUS: [facility] *ORDERING PHYSICIAN: * 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 *READING PHYSICIAN: * Cong Horton, *AIR MOTOR REPAIRER: * PARTH Shetty DO, [facility] INDICATIONS: Severe aortic stenosis; Coronary ratery 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 [...] ID, ES (L) (more content not included)... [employer] Work Phone: Echo Complete w/wo Contrasto n 04-16-2019 Echo Complete w/wo Contrast Patient Name: JACOB LANDA Ultrasound Exam Date/Time 04/16/2019 16:15:14 EST Exam Echo Complete w/wo Contrast Ordering Physician CORRINE HARDING MICHELLE Accession Number [id number] Reason For Exam TAVR Report TRANSTHORACIC ECHOCARDIOGRAM PATIENT: Jacob Landa STUDY DATE: 04/16/2019 : 1955 AGE: 64 HT/WT: 175.3 cm (69 118.8 kg in) (261.4 lb) GENDER: M BP: 130 / 76 LOCATION: [facility] PATIENT Outpatient [facility] STATUS: [facility] *ORDERING PHYSICIAN: * 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 *READING PHYSICIAN: * Cong Horton, *AIR MOTOR REPAIRER: * MILTON Shetty DO, FACC [employer]at [facility] INDICATIONS: Severe aortic stenosis; Coronary ratery 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 [...] signed by Cong Horton DO, FS, [facility] 04/16/2019 17:09 Prior Signatures: Final Dictated: 04/16/2019 5:09 pm Dictating Physician: DO HORTON JOSEPH Signed Date and Time: 04/16/2019 5:09 pm Signed by: DO HORTON JOSEPH Normal [facility] Hemogramon 04-16-2019 MCHC (RBC) [Mass/Vol] 33.4 % Normal 32.0-36.0 [facility] Comment on above: Performed By: #### H SUSY BMP3 #### [facility] [place] [address] [address], [place] HemogramOrdered By: 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 on 04-16-2019 Erythrocyte distribution width (RBC) [Ratio] 13.4 % Normal 11.5-14.5 [facility] [employer] Work Phone: Comment on above: Performed By: #### H SUSY, BMP3 #### [facility] [place] [address] [address], [place] Hematocrit (Bld) [Volume fraction] 43.2 % Normal 40.0-52.0 [employer] Work Phone: Comment on above: Performed By: #### H SUSY, BMP3 #### [facility] [address], [place] Hemoglobin (Bld) [Mass/Vol] 14.4 g/dL Normal 13.0-18.0 [employer] Work Phone: Comment on above: Performed By: #### H GURDEEPG, BMP3 #### [facility] [address], [place] MCH (RBC) [Entitic mass] 28.9 pg Normal 26.0-34.0 [facility] Work Phone: Comment on above: Performed By: #### H EMOG, BMP3 #### [employer] [address], [place] MCV (RBC) [Entitic vol] 86.7 fL Normal 80.0-98.0 [facility] Work Phone: Comment on above: Performed By: #### H EMOG, BMP3 #### [employer] [address], [place] Platelet mean volume (Bld) [Entitic vol] 8.3 fL Normal 7.4-10.4 [facility] Work Phone: Comment on above: Performed By: #### H EMOG, BMP3 #### [employer] [facility] [address], [place] Platelets (Bld) [#/Vol] 155 10*3/uL Normal 140-440 [facility] Work Phone: Comment on above: Performed By: #### H EMOG, BMP3 #### [employer] [facility] [address], [place] RBC (Bld) [#/Vol] 4.99 10*6/uL Normal 4.40-5.90 [facility] Work Phone: Comment on above: Performed By: #### H EMOG, BMP3 #### [employer] [facility] [address], [place] WBC (Bld) [#/Vol] 6.0 10*3/uL Normal 3.6-10.7 [facility] Work Phone: Comment on above: Performed By: #### H EMOG, BMP3 #### [employer] [facility] [address], [place] Op Noteon 03-13-2019 Op Note PATIENT: [...] symptomatic aortic valvular stenosis. Anesthesia: Conscious sedation. Syrup Machine Laborer: Tyshawn Magallanes Complications: None. Indications for Procedure: [...] radial artery and right femoral vein. A 6-Ivorian sheath was placed in the right femoral vein through which a temporary pacing wire was advanced in the right ventricular apex where appropriate capture was documented. Sterile tubing was attached to the side port of the sheath. A 6-Ivorian sheath was placed in the right radial artery through which a pigtail catheter was advanced in the aortic annulus for confirmation of implant angle. A 6-Ivorian sheath was placed in the right femoral [...] and transferred stable to the recovery room. [employer] Job ID: [id number] Jp Zhao MD DOD:03/13/2019 12:41 P MADAN/chon DOT:03/13/2019 01:56 P Job Number: [id number] Document Number: [id number] cc: Tyshawn Magallanes MD [address] [facility] [address] Jp Zhao MD [facility] [address] [facility] [address] [facility] [address] Normal [facility] Basic Metabolic Panelon 02-08 Anion gap [Moles/Vol] 7 mmol/L [place] Calcium [Mass/Vol] 8.8 mg/dL 8.4 - 10. 4 mg/dL [place] Chloride [Moles/Vol] 103 mmol/L 98 - 10 7 mmol/L [place] CO2 [Moles/Vol] 24 mmol/L 22 - 30 mmol/L [place] Creatinine [Mass/Vol] 1.26 mg/dL High 0.52 - 1.25 mg/dL [place] EGFR IF NonAfrican Indonesian 57.4 mL/min >60 [place] Comment on above: Source- MDRD equatio n with creatinine calibration to IDMS(NKDEP) eGFR not recommended for drug dose adjustment GFR/1.73 sq M predicted among blacks MDRD (S/P/Bld) [Vol rate/Area] mL/min/{1.73_m2} >60 mL/min [place] Glucose [Mass/Vol] 96 mg/dL 70 - 100 mg/dL [place] Interpretation and review of laboratory results Abnormal [place] Potassium [Moles/Vol] 4.2 mmol/L 3.5 - 5.1 mmol/L [place] Comment on above: Slightly hemolysed, interpret with caution. Sodium [Moles/Vol] 134 mmol/L Low 135 - 145 mmol/L [place] Urea nitrogen [Mass/Vol] 21 mg/dL High 7 - 20 mg/dL [place] Test Performed by [facility], [address] [place] [address] [place] CBCon 03-04-2019 Erythrocyte distribution width (RBC) [Ratio] 13.4 % 11.5 - 14.5 % [place] Hematocrit (Bld) [Volume fraction] 39.0 % Low 40 - 52 % [place] Hemoglobin (Bld) [Mass/Vol] 13.3 g/dL 13 - 18 g/dL [place] Interpretation and review of laboratory results Abnormal [place] MCH (RBC) [Entitic mass] 30.0 pg 26 - 34 pg [place] MCHC (RBC) [Mass/Vol] 34.0 % 32 - 36 % [place] MCV (RBC) [Entitic vol] 88.2 fL 80 - 98 fL [place] Platelet mean volume (Bld) [Entitic vol] 8.4 fL 7.4 - 10.4 fL [place] Platelets (Bld) [#/Vol] 149 10*3/uL 140 - 440 10*3/uL [place] RBC (Bld) [#/Vol] 4.42 10*6/uL 4.4 - 5.9 10*6/uL [place] WBC (Bld) [#/Vol] 6.9 10*3/uL 3.6 - 10.7 10*3/uL [place] Test Performed by [facility], [address] [place] [id number] [place] [address] ECHO Complete 2D W Doppler W Coloron 03-04-2019 [facility] Incoming Cardiology Results From [facility]/Pete - 03/04/2019 12:51 PM EST TRANSTHORACIC ECHOCARDIOGRAM PATIENT: Jacob Landa STUDY DATE: 03/04/2019 : 1955 AGE: 63 HT/WT: 175.3 cm (69 115 kg in) (253 lb) GENDER: M BP: 113 / 67 LOCATION: [facility] PATIENT Inpatient [facility] STATUS: *ORDERING PHYSICIAN: * 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 *READING PHYSICIAN: * Anderson *AIR MOTOR REPAIRER: * Justus Persaud RDCS, MD AE INDICATIONS: [...] Anderson Jerome MD 03/04/2019 12:50 Prior Signatures: [employer] [facility], [place] TRANSTHORACIC ECHOCARDIOGRAM PATIENT: Jacob Landa STUDY DATE: 03/04/2019 : 1955 AGE: 63 HT/WT: 175.3 cm (69 115 kg in) (253 lb) GENDER: M BP: 113 / 67 LOCATION: [facility] PATIENT Inpatient [facility] STATUS: *ORDERING PHYSICIAN: * 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 *READING PHYSICIAN: * Anderson *AIR MOTOR REPAIRER: * Justus Persaud RDCS, MD AE INDICATIONS: [...] a normally functioning 26 mm bioprosthetic valve (Amrc Vilma). There is trivial, less than 1+ [...] Anderson Jerome MD 03/04/2019 12:50 Prior Signatures: allyve Basic Metabolic Panelon 02-08 Anion gap [Moles/Vol] 6 mmol/L [facility] Electrolytic Ozone Calcium [Mass/Vol] 8.9 mg/dL 8.4 - 10. 4 mg/dL [place] Chloride [Moles/Vol] 106 mmol/L 98 - 10 7 mmol/L [place] CO2 [Moles/Vol] 25 mmol/L 22 - 30 mmol/L [place] Creatinine [Mass/Vol] 1.16 mg/dL 0.52 - 1.25 mg/dL [place] EGFR IF NonAfrican Indonesian >60.0 >60 mL/min [place] Comment on above: Source- MDRD equatio n with creatinine calibration to IDMS(NKDEP) eGFR not recommended for drug dose adjustment GFR/1.73 sq M predicted among blacks MDRD (S/P/Bld) [Vol rate/Area] mL/min/{1.73_m2} >60 mL/min [place] Glucose [Mass/Vol] 93 mg/dL 70 - 100 mg/dL [place] Potassium [Moles/Vol] 4.4 mmol/L 3.5 - 5.1 mmol/L [place] Sodium [Moles/Vol] 137 mmol/L 135 - 145 mmol/L [place] Urea nitrogen [Mass/Vol] 17 mg/dL 7 - 20 mg/dL [place] Test Performed by [id number] [place] [address] CBCon 03-03-2019 Erythrocyte distribution width (RBC) [Ratio] 13.8 % 11.5 - 14.5 % [place] Hematocrit (Bld) [Volume fraction] 39.4 % Low 40 - 52 % [place] Hemoglobin (Bld) [Mass/Vol] 13.4 g/dL 13 - 18 g/dL [place] Interpretation and review of laboratory results Abnormal [place] MCH (RBC) [Entitic mass] 29.5 pg 26 - 34 pg [place] MCHC (RBC) [Mass/Vol] 34.0 % 32 - 36 % [place] MCV (RBC) [Entitic vol] 87.0 fL 80 - 98 fL [place] Platelet mean volume (Bld) [Entitic vol] 8.2 fL 7.4 - 10.4 fL [facility], [place] Platelets (Bld) [#/Vol] 186 10*3/uL 140 - 440 10*3/uL [facility], [place] RBC (Bld) [#/Vol] 4.53 10*6/uL 4.4 - 5.9 10*6/uL [facility], [place] WBC (Bld) [#/Vol] 6.5 10*3/uL 3.6 - 10.7 10*3/uL [facility], [place] Test Performed by [facility], [address] [place] [address] [place] ECHO Limitedon 03-03-2019 [facility] Incoming Cardiology Results From [facility]/Pete - 03/03/2019 8:55 AM EST LIMITED TRANSTHORACIC ECHOCARDIOGRAM Perioperative - TAVR PATIENT: Jacob Landa STUDY DATE: 03/03/2019 : 1955 AGE: 63 HT/WT: 175.3 cm (69 116.6 kg in) (256.5 lb) GENDER: M BP: 112 / 79 LOCATION: [facility] PATIENT Inpatient [facility] STATUS: *ORDERING PHYSICIAN: * Tyshawn Magallanes MD *READING PHYSICIAN: * Steve Washington MD, [facility] *AIR MOTOR REPAIRER: * Lin THAYER INDICATIONS: Aortic Stenosis/ TAVR. [...] range. Electronically signed by Steve Washington MD, FACC 03/03/2019 08:55 Prior Signatures: [facility] [place] LIMITED TRANSTHORACI C ECHOCARDIOGRAM Perioperative - TAVR PATIENT: Jacob Landa STUDY DATE: 03/03/2019 : 1955 AGE: 63 HT/WT: 175.3 cm (69 116.6 kg in) (256.5 lb) GENDER: M BP: 112 / 79 LOCATION: [facility] PATIENT Inpatient [facility] STATUS: *ORDERING PHYSICIAN: * Tyshawn Magallanes MD *READING PHYSICIAN: * Steve Washington MD, FACC *AIR MOTOR REPAIRER: * Lin White RCS INDICATIONS: Aortic Stenosis/ TAVR. CONCLUSIONS SUMMARY: [...] Electronically signed by Steve Washington MD, [facility] 03/03/2019 08:55 Prior Signatures: [place] Potassium w/ Reflex to Susanna lovellon 03-03-2019 Potassium [Moles/Vol] 4.7 mmol/L 3.5 - 5.1 mmol/L [place] Test Performed by [facility], [address] [place] [id number] [place] [address] Brain Natriuretic Peptideon 02-21-2019 Interpretation and review of laboratory results Abnormal [place] Natriuretic peptide B (Bld) [Mass/Vol] 180 pg/mL High 0 - 125 pg/mL [place] Test Performed by [facility], [facility] [place], [place] [id number] [place] [address] CBC Auto Differentialon 02-07 Erythrocyte distribution width (RBC) [Ratio] 13.3 % 11.5 - 14.5 % [place] Hematocrit (Bld) [Volume fraction] 43.5 % 40 - 52 % [place] Hemoglobin (Bld) [Mass/Vol] 14.7 g/dL 13 - 18 g/dL [place] MCH (RBC) [Entitic mass] 30.1 pg 26 - 34 pg [place] MCHC (RBC) [Mass/Vol] 33.7 % 32 - 36 % [place] MCV (RBC) [Entitic vol] 89.3 fL 80 - 98 fL [place] Platelet mean volume (Bld) [Entitic vol] 8.4 fL 7.4 - 10.4 fL [place] Platelets (Bld) [#/Vol] 256 10*3/uL 140 - 440 10*3/uL [place] RBC (Bld) [#/Vol] 4.87 10*6/uL 4.4 - 5.9 10*6/uL [place] WBC (Bld) [#/Vol] 8.7 10*3/uL 3.6 - 10.7 10*3/uL [place] Test Performed by [facility], [facility] [place] [address] [place] CTA Chest Abdomen Pelvis W C [facility] 02-21-2019 Patient Name: JACOB LANDA ---CT--- Exam Date/Time 02/21/2019 09:52:28 EST Exam CTA Chest/Abdomen/Pelvis w/ + w/o contra Ordering Physician MD MAGALLANES PETER Accession Number [id number] CPT4 Codes Q9967 (CT ISOVUE 370MG/ML&[id number]&1) , 99884 (), 81668 () Reason For Exam TAVR Report [facility] Valve [facility] Cardiovascular CTA Indication: 63 year-old man with severe aortic stenosis, being evaluated for transcatheter aortic valve implantation. Technique: Computed tomography of the heart, thoracoabdominal aorta, and iliofemoral system was performed using a [employer] Aquilion One 320 detector scanner. Images were [...] pattern of right coronary dominance. There severe [place] coronary atherosclerosis. Prior RCA stenting. A MCKEON [...] severely calcified. Predicted deployment angle (3-cusp view): UKRAINIAN 10, SUPERINTENDENT POWER 7 Aortic Annulus: Dimensions: 3.03 x 2.06 [...] GOODEN Transcribed Date and Time: 02/21/2019 1:52 [facility] Incoming Radiology Results From [facility] - 02/21/2019 2:18 PM EST Patient Name: JACOB LANDA ---CT--- Exam Date/Time 02/21/2019 09:52:28 EST Exam CTA Chest/Abdomen/Pelvis w/ + w/o contra Ordering Physician MD MAGALLANES PETER Accession Number [id number] CPT4 Codes Q9967 (CT ISOVUE 370MG/[id number]&1) , 30664 (), 19704 () Reason For Exam TAVR Report [facility] Valve [facility] Cardiovascular CTA Indication: 63 year-old man with severe aortic stenosis, being evaluated for transcatheter aortic valve implantation. Technique: Computed tomography of the heart, thoracoabdominal aorta, and iliofemoral system was performed using a [employer] Aquilion One 320 detector scanner. Images were [...] pattern of right coronary dominance. There severe [place] coronary atherosclerosis. Prior RCA stenting. A MCKEON [...] severely calcified. Predicted deployment angle (3-cusp view): UKRAINIAN 10, SUPERINTENDENT POWER 7 Aortic Annulus: Dimensions: 3.03 x 2.06 [...] GOODEN Transcribed Date and Time: 02/21/2019 1:52 [place] Comprehensive Metabolic Pane sergei 02-21-2019 Albumin [Mass/Vol] 4.4 g/dL 3.5 - 5 g/dL [employer], [place] ALP [Catalytic activity/Vol] 66 U/L 38 - 126 U/L [place] ALT [Catalytic activity/Vol] 33 U/L 13 - 69 U/L [place] Anion gap [Moles/Vol] 12 mmol/L [place] AST [Catalytic activity/Vol] 27 U/L 15 - 46 U/L [place] Bilirubin Ql (U) 0.7 mg/dL 0.2 - 1.3 mg/dL [place] Calcium [Mass/Vol] 9.6 mg/dL 8.4 - 10. 4 mg/dL [place] Chloride [Moles/Vol] 100 mmol/L 98 - 10 7 mmol/L [place] CO2 [Moles/Vol] 27 mmol/L 22 - 30 mmol/L [place] Creatinine [Mass/Vol] 1.13 mg/dL 0.52 - 1.25 mg/dL [place] EGFR IF NonAfrican Indonesian >60.0 >60 mL/min [place] Comment on above: Source- MDRD equatio n with creatinine calibration to IDAR(NKDEP) eGFR not recommended for drug dose adjustment GFR/1.73 sq M predicted among blacks MDRD (S/P/Bld) [Vol rate/Area] mL/min/{1.73_m2} >60 mL/min [place] Glucose [Mass/Vol] 60 mg/dL Low 70 - 100 mg/dL [place] Interpretation and review of laboratory results Abnormal [place] Potassium [Moles/Vol] 3.1 mmol/L Low 3.5 - 5.1 mmol/L [place] Protein [Mass/Vol] 7.6 g/dL 6.3 - 8.2 g/dL [place] Sodium [Moles/Vol] 138 mmol/L 135 - 145 mmol/L [place] Urea nitrogen [Mass/Vol] 16 mg/dL 7 - 20 mg/dL [place] Test Performed by [facility], [address] [place] [address] [place] Manual Differentialon 2018 Absolute Baso # 0.0 10*3/uL 0 - 0.2 10*3/uL [place] Absolute Eos # 0.3 10*3/uL 0 - 0.5 10*3/uL [place] Absolute Lymph # 2.0 10*3/uL 1.1 - 4.5 10*3/uL [place] Absolute Runnels # 1.0 10*3/uL 0.2 - 1.1 10*3/uL [place] Absolute Neut # 5.4 10*3/uL 2.2 - 8.2 10*3/uL [place] Anisocytosis Ql (Bld) Slight [place] Bands 0 % 0 - 3 % [place] Basophils 0 % 0 - 2 % [place] Eosinophils 4 % 1 - 6 % [place] Interpretation and review of laboratory results Abnormal [place] Lymphocytes 23 % 20 - 40 % [place] Microcytosis [place] Monocytes 11 % High 2 - 10 % [place] Poikilocytes [place] RBC morphology finding Nom (Bld) ABNORMAL [place] Seg Neutrophils 62 % 40 - 80 % [place] TOTAL CELLS COUNTED 100 [place] Test Performed by [facility], [address] [place] [address] [place] Protime/INR & PTTon 02-22-20 19 aPTT Coag (Bld) [Time] 25.1 s 20 - 30.5 s [place] Comment on above: NOTE: The therapeuti c time for Heparin anticoagulation, based on Xa activity inhibition, is an APTT of 46-80 seconds. INR Coag (PPP) [Relative time] 1.0 {INR} [place] Comment on above: Recommended Anticoag ulant [...] [Time] 10.9 s 9 - 12 s [employer], [place] Comment on above: . Test Performed by [facility], [address] [place] [id number] [place] [place] [address] TYPE AND SCREENon 02-21-2019 Sodium [Moles/Vol] Positive [place] Comment on above: Test Performed by [facility], [address] [place] [address] Sodium [Moles/Vol] A [place] Sodium [Moles/Vol] Negative [place] Comment on above: Test Performed by [facility], [address] [place] [address] Test Performed by [id number] [place] [address] Urinalysison 02-21-2019 Appearance (U) Clear Clear [place], [place] Bilirubin Urine Negative Negative mg/dL [place] Color (U) Colorless Lt. Yellow NA [place] Glucose, Ur Normal Normal (<70) mg/dL [place] Ketones Ql (U) Negative Negative mg/dL [place] LEUKOCYTES, UA Negative Negative Diane/uL [place] Nitrite, Urine Negative Negative [place] Occult Blood,Urine Negative Negative mg/dL [place] pH (U) 5.0 [pH] [place] Protein (U) [Mass/Vol] Negative Negative mg/dL [place] Specific [place], Urine >1.030 [place] Urobilinogen, Urine Normal Normal ( 0-1) mg/dL [place] Test Performed by [facility], [address] [place] [address] [place] XR CHEST STANDARD (2 VW)on 04-23-2018 [facility] Results From [facility] - 02/21/2019 12:07 PM EST Patient Name: JACOB LANDA ---Diagnostic Radiology--- Exam Date/Time 02/21/2019 12:06:38 EST Exam CR Chest PA/LAT Ordering Physician MOHINI TOSCANO MEGGAN Accession Number [id number] CPT4 Codes 72242 () Reason For Exam TAVR Report Indication: [...] ANTHONY Transcribed Date and Time: 02/21/2019 12:03 [facility] EL Patient Name: JACOB LANDA ---Diagnostic Radiology--- Exam Date/Time 02/21/2019 12:06:38 EST Exam CR Chest PA/LAT Ordering Physician MOHINI TOSCANO MEGGAN Accession Number [id number] CPT4 Codes 35679 () Reason For Exam TAVR Report Indication: [...] ANTHONY Transcribed Date and Time: 02/21/2019 12:03 [place] Basic Metabolic Panelon 02-07 Anion gap [Moles/Vol] 8 mmol/L [place] Calcium [Mass/Vol] 9.8 mg/dL 8.4 - 10. 4 mg/dL [place] Chloride [Moles/Vol] 103 mmol/L 98 - 10 7 mmol/L [place] CO2 [Moles/Vol] 28 mmol/L 22 - 30 mmol/L [place] Creatinine [Mass/Vol] 1.22 mg/dL 0.52 - 1.25 mg/dL [place] EGFR IF NonAfrican Indonesian 59.6 mL/min >60 [place] Comment on above: Source- MDRD equatio n with creatinine calibration to IDMS(NKDEP) eGFR not recommended for drug dose adjustment GFR/1.73 sq M predicted among blacks MDRD (S/P/Bld) [Vol rate/Area] mL/min/{1.73_m2} >60 mL/min [place] Glucose [Mass/Vol] 81 mg/dL 70 - 100 mg/dL [place] Potassium [Moles/Vol] 4.4 mmol/L 3.5 - 5.1 mmol/L [place] Sodium [Moles/Vol] 138 mmol/L 135 - 145 mmol/L [place] Urea nitrogen [Mass/Vol] 16 mg/dL 7 - 20 mg/dL [place] Test Performed by [facility], [address] [place] [address] [place] Activated Clotting Time (ACT ) POCT (Uploon 09-26-2019 ACT Coag (Bld) 175 Sec Normal [facility] Comment on above: Result Comment: Kourtney tment ranges and critical values established by Patient Care Services. All follow-up actions were taken by Patient Care Services. Performed By: #### 4 8054-1 ####[facility] POINT OF CARE Basic Metabolic Panelon 12-09 Anion gap [Moles/Vol] 9.0 mmol/L Normal 6.0-18.0 [facility] Comment on above: Performed By: #### 6 9405-9, 35238-8i9, 79835-0 ####[facility] [address], [place] Calcium [Mass/Vol] 9.3 mg/dL Normal 8.9-10.3 [facility] Comment on above: Performed By: #### 6 9405-9, 65655-3k2, 02443-6 ####[facility] [address], [place] Chloride [Moles/Vol] 106 mmol/L Normal 98-107 Moun [facility] Comment on above: Performed By: #### 6 9405-9, 63645-6p3, 98023-7 ####[facility] [address], [place] CO2 [Moles/Vol] 26 mmol/L Normal 22-32 [facility] Comment on above: Performed By: #### 6 9405-9, 22981-8s9, 85869-3 ####[facility] [address], [place] Creatinine [Mass/Vol] 1.19 mg/dL Normal 0.60-1.30 [facility] Comment on above: Performed By: #### 6 9405-9, 30668-7j9, 17047-5 ####[facility] [address], [place] Glucose [Mass/Vol] 98 mg/dL Normal 70-99 [facility] Comment on above: Result Comment: U pdated ADA Reference Range A normal fasting glucose concentration is less than 100 mg/dL. An impaired fasting glucose concentration is 100-125 mg/dL. A provisional diagnosis of diabetes mellitus can be made when a fasting glucose concentration is greater than 125 mg/dL. Performed By: #### 6 9405-9, 71139-0g2, 79280-4 ####[address] Potassium [Moles/Vol] 3.8 mmol/L Normal 3.6-5.1 [facility] Comment on above: Performed By: #### 6 9405-9, 36401-3l2, 63475-0 ####[facility] [address] [place] [address] Sodium [Moles/Vol] 141 mmol/L Normal 136-145 [facility] Comment on above: Performed By: #### 6 9405-9, 87859-8d0, 40542-2 ####[address] Urea nitrogen (BldV) [Mass/Vol] 13 mg/dL Normal 8-20 [facility] Comment on above: Performed By: #### 6 9405-9, 70106-1d2, 92349-7 ####[address] GFRaaon 01-01-2019 GFR/1.73 sq M predicted among blacks MDRD (S/P/Bld) [Vol rate/Area] mL/min/{1.73_m2} Normal [facility] Comment on above: Result Comment: The MDRD equation has not been validated for those over 70 years, women, patients with serious co-morbid conditions, or with extremes of body size, muscle mass of nutritional status. Performed By: #### 6 9405-9, 19299-0s7, 03676-5 ####[address] GFRbbon 01-01-2019 GFR/1.73 sq M predicted among non-blacks MDRD (S/P/Bld) [Vol rate/Area] mL/min/{1.73_m2} Normal [facility] Comment on above: Performed By: #### 6 9405-9, 78940-3k1, 04979-1 ####[facility] [address], [place] Patient Summaryon 01-01-2019 Patient Summary PATIENT DISCHARGE INSTRUCTIONS If you are having an emergency and are not able to reach your physician, CALL 911 or go to the nearest emergency room and take this document with you. Shin Valdovinos [facility] 01/01/19 13:40 [address] [place]. [address] PATIENT INFORMATION ------ Name: JACOB LANDA Address: [address] [facility] [address] Age: 63 Years Phone: [phone] : 1955 12:00 [id number] Sex: Male Race: White Ethnicity: Not Hispan/Lat Admitted From: [facility] Medical Service: Internal Medicine Nurse Unit/Bed: (SD) [facility] 2H66-11 Admit Date: 12/31/2018 10:30 PCP: Physician, PCP Unknown PHYSICIANS INVOLVED WITH CARE Attending Physicians: AUDREY A - Internal Medicine Admitting Physician: Sandra Carlson MD - Internal Medicine Primary Care Physician:Physician, PCP Unknown,Family Practice,,, - Consults: Low MANNING , Sandra Goff Disease Jurgen MANNING , [place] Goff Disease FOLLOW-UP APPOINTMENTS: Provider: Specialty: Address: Date: PCP Unknown Physician Family Practice Follow-up as needed Provider: Specialty: Address: Date: DR. WILSON 4 to 6 weeks Comment: We have called Dr. Wilson, your patient accounts specialist, and notified them the need for an appointment. They will be calling you to arrange the appointment. ALLERGIES: No Known Medication Allergies MEASUREMENTS: Last Charted: Weight: 113.1 kg /249 lbs 5 oz ( 01/01/19 04:38:50 ) MEDICATIONS For: JACOB LANDA This is your list of medication(s). Keep it with you at all times. Your doctor may have changed doses, add, held or stopped some of your medications. Please share this information with your family doctor. Carry this list of medications with you in case of an emergency. Update it when medications are stopped, doses are changed, or new medications (including ztcz-dei-spboggk products) are added. Ask your doctor if [...] day. fluticasone nasal (Flonase 50 mcg Nasal [place]) 1 [place](s) Nasal (Intranasal) once a day. hydroCHLOROthiazide 25 [...] Comment fluticasone nasal (Flonase 50 mcg Nasal [place]) 1 [place](s) Nasal (Intranasal) once a day. Comment hydroCHLOROthiazide [...] stop taking Plavix unless approved by your Syrup Machine Laborer. If you have nitroglycerin, remember to carry [...] suicide hotline, anytime day or night, at 4-878-240-UWQZ. Important information about accessing your health information through the [employer] patient portal If you initiated the self-registration process for [employer] during your stay, please check your personal email for an invitation to enroll in [employer] and complete the steps outlined in the email. If you would prefer to enroll while in the hospital, ask a member of your care team. We would be happy to assist you. If you have already enrolled in [employer], go to [email or web address] to login and access your health information. Thank you for choosing [facility]. PATIENT EDUCATION Heart-Healthy Eating Plan Many factors [...] with whole grains. Look for the word whole as the first word in the ingredient [...] FOODS CAN I EAT? Grains Breads, including Ivorian, white, savana, wheat, raisin, rye, oatmeal, and Telugu. Tortillas that are neither fried nor made with lard or trans fat. Low-fat rolls, including hotdog and hamburger buns and Amharic muffins. Biscuits. Muffins. Waffles. Pancakes. Light popcorn. Whole-grain cereals. Flatbread. [place] toast. Pretzels. Breadsticks. Rusks. Low-fat snacks and [...] cooking, baking, salads, and as spreads. Other Tustin powder. Coffee and tea. All seasonings and [...] cheese. Whole milk cheeses, including blue (donny), Gordon Gilbert, Brie, Alexx, Indonesian, Havarti, Botswanan, cheddar, Camembert, and Blomkest. ?Whole or 2% milk that is liquid, [...] that has suet, meat fat, or shortening. Tustin butter, hydrogenated oils, palm oil, coconut oil, [...] 01/02/2009 Document Revised: 04/16/2015 Document Reviewed: 09/17/2014 [employer] Patient Education ?2016 [employer] Groin Surgical Site Care Refer to this [...] provider. Document Released: 11/27/2014 Document Reviewed: 11/27/2014 [employer] Patient Education ?2016 Admittor. Radial Site Care Refer to this sheet [...] 04/28/2011 Document Revised: 04/16/2015 Document Reviewed: 10/12/2014 [employer] Patient Education ?2016 [employer] Coronary Angiogram With Stent Coronary angiography [...] including vitamins, herbs, eye drops, creams, and zvje-zvn-oodttjc medicines. ?Previous problems you or members of [...] 09/30/2003 Document Revised: 04/16/2015 Document Reviewed: 10/02/2013 Else[employer] Interactive Patient Education ?2016 [employer] Echocardiogram An echocardiogram, or echocardiography, uses [...] including vitamins, herbs, eye drops, creams, and mdcp-kwq-hnibhpi medicines. ???Previous problems you or members of [...] Reviewed: 12/01/2013 Elsevier Interactive Patient Education ?2015 [employer] PATIENT DISCHARGE INSTRUCTION Signature Page for: JACOB LANDA Date/Time: 01/01/2019 13:40:34 A Clinician has explained the information on my discharge instructions and has provided me with a copy. My questions have been answered to my satisfaction. Patient Signature Date/Time Responsible Party Date/Time Relationship to Patient _ Clinician Signature ____ Date/Time __ Normal [facility] Activated Clotting Time (ACT ) POCT (Uploon 12-31-2018 ACT Coag (Bld) 155 Sec [facility] Comment on above: Result Comment: Kourtney tment ranges and critical values established by Patient Care Services. All follow-up actions were taken by Patient Care Services. Performed By: #### 4 8054-1 ####[facility] POINT [facility] CARE ACT Coag (Bld) 187 Sec [facility] Comment on above: Result Comment: Kourtney tment ranges and critical values established by Patient Care Services. All follow-up actions were taken by Patient Care Services. Performed By: #### 6 9405-9, 87177-6p0, 11876-3, 32221-4 #### [facility] [address], [place] ACT Coag (Bld) 267 Sec [facility] Comment on above: Result Comment: Kourtney tment ranges and critical values established by Patient Care Services. All follow-up actions were taken by Patient Care Services. Performed By: #### 6 9405-9, 68064-2r8, 87997-5, 22798-2 #### [facility] [address], [place] ACT Coag (Bld) 155 Sec [facility] Comment on above: Result Comment: Kourtney tment ranges and critical values established by Patient Care Services. All follow-up actions were taken by Patient Care Services. Performed By: #### 6 9405-9, 51406-6l2, 35139-4, 38532-3 #### [facility] [address] [place] BUNon 12-31-2018 Urea nitrogen (BldV) [Mass/Vol] 13 mg/dL Normal 8-20 [facility] Comment on above: Performed By: #### 6 9405-9, 64609-1y2, 41125-5, 46395-8 #### [facility] [address], [place] Basic Metabolic Panelon 12-09 Anion gap [Moles/Vol] 9.0 mmol/L Normal 6.0-18.0 [facility]cell[facility] Comment on above: Performed By: #### 6 9405-9, 18255-0i5, 28570-7, 77867-3 #### [facility] [address], [place] Calcium [Mass/Vol] 8.4 mg/dL Low 8.9-10.3 [facility] Comment on above: Performed By: #### 6 9405-9, 69759-4i0, 16661-4, 59978-1 #### [facility] [address] Chloride [Moles/Vol] 108 mmol/L High 98-107 Moun [facility] Comment on above: Performed By: #### 6 9405-9, 97720-0o1, 09809-2, 52620-8 #### [facility] [address] CO2 [Moles/Vol] 26 mmol/L Normal 22-32 [facility] Comment on above: Performed By: #### 6 9405-9, 30611-8u3, 39481-6, 24028-8 #### [facility] [address] Creatinine [Mass/Vol] 0.54 mg/dL Low 0.60-1.30 [facility] Comment on above: Performed By: #### 6 9405-9, 40451-6p9, 88772-4, 23476-6 #### [facility] [address], [place] Glucose [Mass/Vol] 74 mg/dL Normal 70-99 [facility] Comment on above: Result Comment: U pdated ADA Reference Range A normal fasting glucose concentration is less than 100 mg/dL. An impaired fasting glucose concentration is 100-125 mg/dL. A provisional diagnosis of diabetes mellitus can be made when a fasting glucose concentration is greater than 125 mg/dL. Performed By: #### 6 9405-9, 72718-7l3, 28569-6, 09478-7 #### [facility] [address] [place] Potassium [Moles/Vol] 4.0 mmol/L Normal 3.6-5.1 [facility] Comment on above: Performed By: #### 6 9405-9, 58308-9q7, 62173-6, 02621-1 #### [facility] [address] Sodium [Moles/Vol] 143 mmol/L Normal 136-145 [facility] Comment on above: Performed By: #### 6 9405-9, 74507-2x5, 99039-1, 83784-3 #### [facility] [address] [place] Urea nitrogen (BldV) [Mass/Vol] 8 mg/dL Normal 8-20 [facility] Comment on above: Performed By: #### 6 9405-9, 49559-3v8, 74338-6, 43789-8 #### [facility] [address] [place] Calcium [Mass/Vol] 8.7 mg/dL Normal 8.5-10.6 [facility] Chloride [Moles/Vol] 94 mmol/L Low 98-107 Moun [facility] CO2 [Moles/Vol] 36 mmol/L High 21-32 [facility] Creatinine [Mass/Vol] 0.76 mg/dL Normal 0.70-1.30 [facility] Glucose [Mass/Vol] 165 mg/dL High 70-99 [facility] Potassium [Moles/Vol] 3.7 mmol/L Normal 3.5-5.1 [facility] Sodium [Moles/Vol] 139 mmol/L Normal 136-145 [facility] Urea nitrogen (BldV) [Mass/Vol] 17 mg/dL Normal 7.0-18.0 [facility] Urea nitrogen/Creatinine [Mass ratio] 22 mg/mg Normal [facility] C-Reactive Proteinon 019 CRP [Mass/Vol] 257.7 mg/L High 0.0-9.0 [facility] CBCon 12-31-2018 Erythrocyte distribution width (RBC) [Entitic vol] 13.4 % Normal 11.0-14.8 [facility] Comment on above: Performed By: #### 6 9405-9, 33698-0h9, 55358-2, 33947-9 #### [facility] [address] [place] Hematocrit (Bld) [Volume fraction] 38.4 % Low 39.0-49.0 [facility] Comment on above: Performed By: #### 6 9405-9, 30579-5c1, 54537-1, 37305-4 #### [place] [address], [place] Hemoglobin (Bld) [Mass/Vol] 13.3 g/dL Low 13.5-17.5 [facility] Comment on above: Performed By: #### 6 9405-9, 33635-0q5, 43102-2, 26537-2 #### [place] [address] MCH (RBC) [Entitic mass] 30.4 Picograms Normal 27.0-34.0 [facility] Comment on above: Performed By: #### 6 9405-9, 83340-6w9, 98196-9, 45887-9 #### [facility] [address] [place] MCHC (RBC) [Mass/Vol] 34.7 g/dL Normal 32.0-36.0 [facility] Comment on above: Performed By: #### 6 9405-9, 49004-0h7, 53736-7, 29955-7 #### [facility] [address] [place] MCV (RBC) [Entitic vol] 87.7 fL Normal 80.0-97.0 [facility] Comment on above: Performed By: #### 6 9405-9, 12152-2i0, 17889-1, 53901-7 #### [facility] [address] Platelet mean volume (Bld) [Entitic vol] 8.8 fL Normal 6.2-12.1 [facility] Comment on above: Performed By: #### 6 9405-9, 57796-1y9, 09652-4, 51806-9 #### [facility] [address] [place] Platelets (Bld) [#/Vol] 129 thou/mcL Low 142-424 [facility] Comment on above: Performed By: #### 6 9405-9, 75896-7o5, 26632-0, 38485-8 #### [facility] [address] RBC (Bld) [#/Vol] 4.38 million/mcL Normal 4.30-5.70 [facility] Comment on above: Performed By: #### 6 9405-9, 87457-1d4, 17268-9, 70535-0 #### [facility] [address] WBC (Bld) [#/Vol] 4.8 thou/mcL Normal 4.6-10.2 [facility] Comment on above: Performed By: #### 6 9405-9, 44850-9l7, 79757-8, 53837-3 #### [facility] [address] CBC with Differentialon 12-09 Basophils (Bld) [#/Vol] 0.1 thou/mcL Normal 0.0-0.2 [facility] Basophils/100 WBC (Bld) 0.6 % Normal 0-3 [facility] Differential cell count method Nom (Bld) AUTOMATED DIFFERENTIAL Normal [facility] Eosinophils (Bld) [#/Vol] 0.5 thou/mcL High 0.0-0.4 [facility] Eosinophils/100 WBC (Bld) 4.0 % Normal 0-7 [facility] Lymphocytes (Bld) [#/Vol] 1.7 thou/mcL Normal 0.7-4.5 [facility] Lymphocytes/100 WBC (Bld) 14.5 % Normal 14-46 [facility] Monocytes (Bld) [#/Vol] 0.8 thou/mcL Normal 0.1-1.0 [facility] Monocytes/100 WBC (Bld) 6.6 % Normal 4-13 [facility] Neutrophils (Bld) [#/Vol] 8.9 thou/mcL High 1.5-7.8 [facility] Neutrophils/100 WBC (Bld) 74.3 % High 40-74 [facility] RBC morphology finding Nom (Bld) 1+ Normal [facility] Comment on above: Result Comment: POIK ILOCYTOSIS 2+ HYPOCHROMIA 2+ MICROCYTES Erythrocyte distribution width (RBC) [Entitic vol] 16.2 % High 11.7-15.0 [facility] Hematocrit (Bld) [Volume fraction] 17.4 % Low 34.0-50.0 [facility] Hemoglobin (Bld) [Mass/Vol] 5.8 g/dL Off scale low 11.5-17.0 [facility] Comment on above: Result Comment: RESU LTS VERIFIED AND CALLED TO/READ BACK BY REMBERTO CHRIS 12.31.18 @ 0586 BF. MCH (RBC) [Entitic mass] 25.8 Picograms Low 27.0-34.0 [facility] MCHC (RBC) [Mass/Vol] 33.2 g/dL Normal 32.0-36.0 Marcell[facility] MCV (RBC) [Entitic vol] 77.7 fL Low 80-98 [facility] Platelet mean volume (Bld) [Entitic vol] 8.1 fL Normal 7.5-11.2 [facility] Platelets (Bld) [#/Vol] 328 thou/mcL Normal 140-415 [facility] RBC (Bld) [#/Vol] 2.23 x(10)6/mcL Low 3.80-5.60 Mo [facility] WBC (Bld) [#/Vol] 12.0 thou/mcL High 4.0-10.5 Moun [facility] Basophils (Bld) [#/Vol] 0.10 thou/mcL Normal 0.00-0.20 [facility] Comment on above: Performed By: #### 6 9405-9, 87231-4l4, 39719-4, 29860-3 #### [facility] [address] [place] Basophils/100 WBC (Bld) 0.8 % Normal 0.0-2.0 [facility] Comment on above: Performed By: #### 6 9405-9, 18864-7w1, 33184-7, 22917-5 #### [facility] [address] [place] Eosinophils (Bld) [#/Vol] 0.50 thou/mcL Normal 0.00-0.70 [facility] Comment on above: Performed By: #### 6 9405-9, 15495-2m9, 53151-3, 12155-3 #### [facility] [address] [place] Eosinophils/100 WBC (Bld) 5.4 % Normal 0.0-7.0 [facility] Comment on above: Performed By: #### 6 9405-9, 50593-6p0, 77480-0, 59998-9 #### [facility] [address] Erythrocyte distribution width (RBC) [Entitic vol] 14.1 % Normal 11.0-14.8 [facility] Comment on above: Performed By: #### 6 9405-9, 28645-7s7, 79059-4, 42917-2 #### [facility] [address] [place] Hematocrit (Bld) [Volume fraction] 41.2 % Normal 39.0-49.0 [facility] Comment on above: Performed By: #### 6 9405-9, 47036-4j3, 29483-1, 35376-9 #### [facility] [address] [place] Hemoglobin (Bld) [Mass/Vol] 13.9 g/dL Normal 13.5-17.5 [facility] Comment on above: Performed By: #### 6 9405-9, 58563-8b3, 76965-3, 99403-3 #### [facility] [address] [place] Lymphocytes (Bld) [#/Vol] 1.50 thou/mcL Normal 1.00-4.80 [facility] Comment on above: Performed By: #### 6 9405-9, 30056-4d0, 53087-6, 87277-4 #### [facility] [address] [place] Lymphocytes/100 WBC (Bld) 17.8 % Low 22.0-44.0 [facility] Comment on above: Performed By: #### 6 9405-9, 64811-9o6, 29362-0, 81045-2 #### [facility] [address] [place] MCH (RBC) [Entitic mass] 32.1 Picograms Normal 27.0-34.0 [facility] Comment on above: Performed By: #### 6 9405-9, 91642-9r3, 63809-9, 45562-4 #### [facility] [address] [place] MCHC (RBC) [Mass/Vol] 33.8 g/dL Normal 32.0-36.0 [facility] Comment on above: Performed By: #### 6 9405-9, 79375-1v7, 90363-9, 42168-5 #### [facility] [address] [place] MCV (RBC) [Entitic vol] 95.1 fL Normal 80.0-97.0 [facility] Comment on above: Performed By: #### 6 9405-9, 97580-1i7, 57329-4, 92842-7 #### [facility] [address] [place] Monocytes (Bld) [#/Vol] 0.90 thou/mcL Normal 0.00-0.90 [facility] Comment on above: Performed By: #### 6 9405-9, 82890-1p9, 58216-3, 90909-8 #### [facility] [address] Monocytes/100 WBC (Bld) 10.9 % Normal 0.0-12.0 [facility] Comment on above: Performed By: #### 6 9405-9, 72001-9g5, 61785-4, 75881-4 #### [facility] [address] Neutrophils (Bld) [#/Vol] 5.40 thou/mcL Normal 1.80-7.70 [facility] Comment on above: Performed By: #### 6 9405-9, 14100-9p6, 13985-4, 55706-7 #### [address] Neutrophils/100 WBC (Bld) 65.1 % Normal 40.0-70.0 [facility] Comment on above: Performed By: #### 6 9405-9, 67786-3f6, 32522-0, 85688-7 #### [address] Platelet mean volume (Bld) [Entitic vol] 9.2 fL Normal 6.2-12.1 [facility] Comment on above: Performed By: #### 6 9405-9, 54670-4v7, 18577-5, 89597-9 #### [facility] [address], [place] Platelets (Bld) [#/Vol] 210 thou/mcL Normal 142-424 [facility] Comment on above: Performed By: #### 6 9405-9, 00770-7a5, 81990-5, 45878-9 #### [facility] [address], [place] RBC (Bld) [#/Vol] 4.33 million/mcL Normal 4.30-5.70 [facility] Comment on above: Performed By: #### 6 9405-9, 28213-2e8, 32333-9, 08780-6 #### [facility] [address], [place] WBC (Bld) [#/Vol] 8.3 thou/mcL Normal 4.6-10.2 [facility] Comment on above: Performed By: #### 6 9405-9, 50957-4o5, 90784-3, 72383-4 #### [facility] [address] Comprehensive Metabolic Pane sergei 12-31-2018 Albumin [Mass/Vol] 3.6 g/dL Normal 3.5-4.8 [facility] Comment on above: Performed By: #### 6 9405-9, 80425-6o2, 96131-9, 86234-9 #### [facility] [address], [place] ALP [Catalytic activity/Vol] 44 Units/L Normal 32-91 [facility] Comment on above: Performed By: #### 6 9405-9, 44628-8j5, 60506-5, 53687-8 #### [facility] [address] ALT [Catalytic activity/Vol] 20 Units/L Normal 14-63 [facility] Comment on above: Performed By: #### 6 9405-9, 78177-7t2, 16438-2, 13115-0 #### [facility] [address] Anion gap [Moles/Vol] 7.0 mmol/L Normal 6.0-18.0 [facility] Comment on above: Performed By: #### 6 9405-9, 64017-2b2, 05179-5, 85968-2 #### [facility] [address], [place] AST [Catalytic activity/Vol] 17 Units/L Normal 15-41 [facility] Comment on above: Performed By: #### 6 9405-9, 19108-5d3, 97497-9, 66950-6 #### [facility] [address], [place] Bilirubin [Mass/Vol] 1.2 mg/dL Normal 0.3-1.2 [facility] Comment on above: Performed By: #### 6 9405-9, 47240-9r0, 97759-5, 57453-5 #### [facility] [address], [place] Calcium [Mass/Vol] 9.0 mg/dL Normal 8.9-10.3 [facility] Comment on above: Performed By: #### 6 9405-9, 11742-1y0, 82733-3, 55427-0 #### [facility] [address], [place] Chloride [Moles/Vol] 109 mmol/L High 98-107 [facility] Comment on above: Performed By: #### 6 9405-9, 98642-8y1, 48265-2, 69693-3 #### [facility] [address], [place] CO2 [Moles/Vol] 24 mmol/L Normal 22-32 [facility] Comment on above: Performed By: #### 6 9405-9, 58981-0l7, 71059-0, 40434-6 #### [facility] [address], [place] Creatinine [Mass/Vol] 0.98 mg/dL Normal 0.60-1.30 [facility] Comment on above: Performed By: #### 6 9405-9, 84727-7a9, 33239-9, 27915-6 #### [facility] [address], [place] Glucose [Mass/Vol] 104 mg/dL High 70-99 [facility] Comment on above: Result Comment: U pdated ADA Reference Range A normal fasting glucose concentration is less than 100 mg/dL. An impaired fasting glucose concentration is 100-125 mg/dL. A provisional diagnosis of diabetes mellitus can be made when a fasting glucose concentration is greater than 125 mg/dL. Performed By: #### 6 9405-9, 12876-4j9, 19773-8, 68628-9 #### [facility] [address], [place] Potassium [Moles/Vol] 3.9 mmol/L Normal 3.6-5.1 [facility] Comment on above: Performed By: #### 6 9405-9, 93990-0d3, 15776-7, 91310-7 #### [facility] [address], [place] Protein [Mass/Vol] 6.0 g/dL Low 6.1-7.9 [facility] Comment on above: Performed By: #### 6 9405-9, 36999-8j4, 26097-9, 40675-8 #### [facility] [address], [place] Sodium [Moles/Vol] 140 mmol/L Normal 136-145 [facility] Comment on above: Performed By: #### 6 9405-9, 51768-4k0, 72502-0, 01625-5 #### [facility] [address], [place] Urea nitrogen (BldV) [Mass/Vol] 13 mg/dL Normal 8-20 [facility] Comment on above: Performed By: #### 6 9405-9, 86634-9d8, 91601-7, 97014-4 #### [place] [address] [place], [place] Creatinineon 12-31-2018 Creatinine [Mass/Vol] 0.94 mg/dL Normal 0.66-1.30 [facility] Comment on above: Performed By: #### 6 9405-9, 68845-4q1, 76520-8, 77923-7 #### [facility] [address], [place] Electrolyte Panelon 01-01-20 19 Anion gap [Moles/Vol] 12.0 mmol/L Normal 6.0-18.0 Mo [facility] Comment on above: Performed By: #### 6 9405-9, 09280-9a0, 77001-2, 12169-2 #### [facility] [address] Chloride [Moles/Vol] 96 mmol/L Low 98-107 [facility] t [facility] Comment on above: Performed By: #### 6 9405-9, 93868-4m9, 14249-9, 26333-0 #### [facility] [address] CO2 [Moles/Vol] 23 mmol/L Normal 22-32 [facility] Comment on above: Performed By: #### 6 9405-9, 95417-6l3, 24161-4, 60324-1 #### [facility] [address] Potassium [Moles/Vol] 4.1 mmol/L Normal 3.6-5.1 [facility] Comment on above: Performed By: #### 6 9405-9, 61513-9h7, 01416-0, 27288-5 #### [facility] [address] Sodium [Moles/Vol] 131 mmol/L Low 136-145 [facility] Comment on above: Performed By: #### 6 9405-9, 59876-0i3, 98459-9, 85938-0 #### [facility] [address], [place] GFRaaon 12-31-2018 GFR/1.73 sq M predicted among blacks MDRD (S/P/Bld) [Vol rate/Area] mL/min/{1.73_m2} Normal [facility] Comment on above: Result Comment: The MDRD equation has not been validated for those over 70 years, women, patients with serious co-morbid conditions, or with extremes of body size, muscle mass of nutritional status. Performed By: #### 6 9405-9, 37369-1x3, 74067-6, 38559-1 #### [facility] [address], [place] GFR/1.73 sq M predicted among blacks MDRD (S/P/Bld) [Vol rate/Area] mL/min/{1.73_m2} Normal [facility] Comment on above: Result Comment: The MDRD equation has not been validated for those over 70 years, women, patients with serious co-morbid conditions, or with extremes of body size, muscle mass of nutritional status. Performed By: #### 6 9405-9, 54924-3i3, 60610-4, 33967-3 #### [facility] [address], [place] GFRbbon 12-31-2018 GFR/1.73 sq M predicted among non-blacks MDRD (S/P/Bld) [Vol rate/Area] mL/min/{1.73_m2} Normal [facility] Comment on above: Performed By: #### 6 9405-9, 65432-2t5, 71825-2, 70585-0 #### [facility] [address], [place] GFR/1.73 sq M predicted among non-blacks MDRD (S/P/Bld) [Vol rate/Area] 56 mL/min/{1.73_m2} Normal [facility] Comment on above: Performed By: #### 6 9405-9, 37331-2s5, 44805-2, 20854-8 #### [facility] [address] Magnesium Levelon 12-31-2018 Magnesium [Mass/Vol] 1.5 mg/dL Low 1.8-2.4 Moun [facility] Partial Thromboplastin Time (aPTT)on 12-31-2018 aPTT Coag (PPP) [Time] 74.4 Sec High 23.3-35.3 [facility] Comment on above: Order Comment: To be drawn (0600, 1400, 2200) while on heparin Result Comment: LAUREN CANCHOLA NOTE: OF OCTOBER 01, 2018,NEW NORMAL REFERENCE RANGE aPTT Coag (PPP) [Time] 51.1 Sec High 23.3-35.3 [facility] Comment on above: Order Comment: To be drawn (0600, 1400, 2200) while on heparin Result Comment: LAUREN CANCHOLA NOTE: OF OCTOBER 01, 2018,NEW NORMAL REFERENCE RANGE Sedimentation Rate rbcon ESR (Bld) [Velocity] 43 mm/h High 0-20 Moun [facility] ESR (Bld) [Velocity] 30 mm/h High 0-15 Moun [facility] Comment on above: Performed By: #### 6 9405-9, 64171-4w6, 20562-1, 66000-8 #### [place] [address] [place], [place] Test Result Ejection Fractio non 12-31-2018 Test Result Ejection Fraction Normal [facility] Test Result Ejection Fraction 55-60 Normal [facility] Troponin Ion 12-31-2018 Troponin I.cardiac [Mass/Vol] 0.11 ng/mL High <0.06 [facility] Comment on above: Performed By: #### 6 9405-9, 14523-8s0, 92494-6, 53905-0 #### [address] Troponin I.cardiac [Mass/Vol] 0.10 ng/mL High <0.06 [facility] Comment on above: Performed By: #### 6 9405-9, 29541-7d9, 79044-2, 48408-3 #### [address] Basic Metabolic Panelon 12-09 Anion gap [Moles/Vol] 8.0 mmol/L Normal 6.0-18.0 [facility] Comment on above: Performed By: #### 6 9405-9, 91650-5z9, 87246-0, 52600-5 #### [facility] [address], [place] Calcium [Mass/Vol] 9.4 mg/dL Normal 8.9-10.3 [facility] Comment on above: Performed By: #### 6 9405-9, 01244-1v0, 43884-9, 92694-2 #### [facility] [address] [place], [place] Chloride [Moles/Vol] 109 mmol/L High 98-107 Moun [facility] Comment on above: Performed By: #### 6 9405-9, 75222-1w5, 38583-5, 03792-2 #### [facility] [address], [place] CO2 [Moles/Vol] 26 mmol/L Normal 22-32 [facility] Comment on above: Performed By: #### 6 9405-9, 57095-6o7, 85239-9, 87921-4 #### [facility] [address], [place] Creatinine [Mass/Vol] 1.24 mg/dL Normal 0.60-1.30 [facility] Comment on above: Performed By: #### 6 9405-9, 40611-3r4, 10745-3, 21363-8 #### [facility] [address], [place] Glucose [Mass/Vol] 82 mg/dL Normal 70-99 [facility] Comment on above: Result Comment: U pdated ADA Reference Range A normal fasting glucose concentration is less than 100 mg/dL. An impaired fasting glucose concentration is 100-125 mg/dL. A provisional diagnosis of diabetes mellitus can be made when a fasting glucose concentration is greater than 125 mg/dL. Performed By: #### 6 9405-9, 50985-4h9, 18190-8, 54263-6 #### [facility] [address] [place], [place] Potassium [Moles/Vol] 4.4 mmol/L Normal 3.6-5.1 [facility] Comment on above: Performed By: #### 6 9405-9, 95164-1x9, 59538-6, 37024-0 #### [facility] [address], [place] Sodium [Moles/Vol] 143 mmol/L Normal 136-145 [facility] Comment on above: Performed By: #### 6 9405-9, 20772-0d7, 70546-7, 67968-1 #### [facility] [address], [place] Urea nitrogen (BldV) [Mass/Vol] 12 mg/dL Normal 8-20 [facility] Comment on above: Performed By: #### 6 9405-9, 11122-0i3, 23880-3, 97396-3 #### [facility] [address], [place] ED Pat Eduon 12-30-2018 ED Pat Edu [facility] [address] [place], [place] [address] Emergency Department Discharge Instructions JACOB LANDA Bereket , Please provide this information to your [...] [facility] Name JACOB LANDA [id number] PLEASE READ THE FOLLOWING REGARDING YOUR MEDICATIONS [...] doses are changed, or new medications (including ofmo-jts-kzvklaw products) are added. If you have any [...] day. fluticasone nasal (Flonase 50 mcg Nasal [place]) 1 [place](s) Nasal (Intranasal) once a day. hydroCHLOROthiazide 25 [...] Comment fluticasone nasal (Flonase 50 mcg Nasal [place]) 1 [place](s) Nasal (Intranasal) once a day. Comment hydroCHLOROthiazide [...] UNTIL YOU TALK TO YOUR DOCTOR None [facility] [address] [place], [place] [address] Emergency Department Discharge Instructions Name: JACOB LANDA Current Date: 12/30/2018 18:05:49 : 1955 Primary Physician: Physician, PCP Unknown We would like to thank you for choosing [facility] for your emergency medical needs. We [...] and the health of those around you. [facility] offers many resources to help with smoking cessation. Call the [place] Tobacco Quit Line at 6-229-UUER-NOW ( ). High blood pressure: Your screening [...] deadly infections. Discuss this with your child's hospice care sales consultant, or Public Health Department. Your family practice doctor can determine if you need pneumonia or flu vaccine. The [facility] Department can be reached at . Substance Abuse Program: Concerns with addiction to alcohol, benzodiazepines (Ativan or Xanax) and Opiates (Heroin, Percocet, OxyContin, Methadone or Fentanyl)? [facility] offers an inpatient Substance Abuse Program to help treat the symptoms associated with medical detoxification of addictive substances. The new program offers care for non- adults (18 and older) looking to break the chain to addictive chemicals. The Substance Abuse Program is a voluntary inpatient admission and it starts with a pre-screening phone call to a social worker aide. During the call, goals and objectives for recovery and how the patient will transition to outpatient care will be established. Please call [phone] to get help today. Domestic Violence: If you are a victim of domestic violence (physical, verbal, or emotional), you are not alone. Discuss this with your physician or a friend and call the [place] Domestic Violence Hotline or [place] Domestic Violence Hotline for assistance and support. [...] physician, call the Physician Referral Line at [phone]) 112-OOJJ ([phone]). Suicide Hotline: Your mental and emotional well-being is important. If you are in a mental health crisis or are having thoughts of suicide, please call the nationwide suicide hotline, anytime day or night, at 9-257-724-JRGY (1120). Community Research And Development Manager: You may be contacted by your local fire department for a follow up visit from a community floor framer. The community floor framer can help with a home safety check; follow up care, and general home care management. Pharmacy Information: Below is a list of 24 hour pharmacies that we are aware of. We suggest that you call the specific pharmacy for their hours before traveling to a location. Hours may vary on holidays. [facility] [place] [address], [place] [phone] [address] [place], [place] 9[address] [phone] [address] [place], [place] 9[address] [phone] [address] [place], [place] [phone] [address], [place] [phone] [address], [place] [phone] [place] [address] [phone] Take all medications as directed. If you need prescription assistance, contact the following agencies: ?? Partnership for Prescription Assistance at or www.pparx.org ?? [place] at or www.GrubHubbestrx.org ?? www.[employer] is a site with many valuable coupons Patient Education Materials JACOB LANDA has been given the following patient education materials: <><><><><><><><><><><><><> <><><><><><><><><><><><><> Patient Visit Summary Signature JACOB LANDA has been given the following list of patient education materials, prescriptions and follow-up instructions: I SYEDA JACOB [place], have received the above patient education materials/instructions and have verbalized understanding: Date Time Patient Signature Date Time Provider Signature Normal [facility] GFRaaon 12-30-2018 GFR/1.73 sq M predicted among blacks MDRD (S/P/Bld) [Vol rate/Area] mL/min/{1.73_m2} [facility] Comment on above: Result Comment: The MDRD equation has not been validated for those over 70 years, women, patients with serious co-morbid conditions, or with extremes of body size, muscle mass of nutritional status. Performed By: #### 6 9405-9, 63705-7y4, 98538-7, 91739-2 #### [address] GFRbbon 12-30-2018 GFR/1.73 sq M predicted among non-blacks MDRD (S/P/Bld) [Vol rate/Area] 59 mL/min/{1.73_m2} Normal [facility] Comment on above: Performed By: #### 6 9405-9, 22505-5n2, 66101-8, 12624-1 #### [facility] [address] [place], [place] Partial Thromboplastin Time (aPTT)on 12-30-2018 aPTT Coag (PPP) [Time] 26.5 Sec Normal 23.3-35.3 [facility] Comment on above: Result Comment: PLEYessi CANCHOLA NOTE: OF OCTOBER 01, 2018,NEW NORMAL REFERENCE RANGE Performed By: #### 3 173-2, 5902-2 #### [facility] [address] [place], [place] Prothrombin Timeon 9 INR Coag (Bld) [Relative time] 1.09 {INR} Normal [facility] Comment on above: Result Comment: The recommended therapeutic INR range for most cardiac indications is 2.0-3.0. For high intensity therapy(ie.mechanical heart valves), the recommended range is 2.5-3.5. Performed By: #### 3 173-2, 5902-2 #### [address] PT Coag (PPP) [Time] 14.4 Sec Normal 11.9-14.7 [facility] Comment on above: Result Comment: LAUREN CANCHOLA NOTE: OF OCTOBER 01, 2018,NEW NORMAL REFERENCE RANGE Performed By: #### 3 173-2, 5902-2 #### [address] Troponin Ion 12-30-2018 Troponin I.cardiac [Mass/Vol] 0.11 ng/mL High <0.06 [facility] Comment on above: Performed By: #### 1 0839-9 #### [facility] [address] [place], [place] Troponin I.cardiac [Mass/Vol] 0.08 ng/mL High <0.06 [facility] Comment on above: Performed By: #### 6 9405-9, 56774-5k5, 69016-2, 32360-9 #### [facility] [address], [place] XR Chest 2 Viewson 9 XR Chest 2 views EXAMINATION TYPE: XR Chest 2 Views DATE OF EXAM : 12/30/2018 1:49 PM HISTORY: Chest Pain , shortness of breath COMPARISON: NONE FINDINGS: Cardiac silhouette is within normal limits. There is no lung consolidation or pleural effusion. There are sternotomy wires. IMPRESSION: No acute abnormality Gore thanks you for the opportunity to care for your patient. Workstation ID: [id number] - [id number] FINAL REPORT Dictated By: Maximus Rogers MD 12/30/2018 13:55 Assigned Physician: Maximus Rogers MD Reviewed and Electronically Signed By: Maximus Rogers MD 12/30/2018 13:56 Transcribed by: HEATH 12/30/2018 13:55 Technologist: ELISE [facility] MSCon 11-24-2017 [facility] REPORT Normal [facility] DATE OF SERVICE: 11/24/2017REASON FOR VISIT: Painful rash on the back.HISTORY OF PRESENT ILLNESS: This is a 62-year-old male presenting with an area ofpainful rash on the low back since yesterday. Patient stated that he had cellulitison his back about a month ago. At that time he was treated with 2 antibiotics. 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 MARIE Zepeda/[id number]: 11/24/2017 11:08DT: 11/25/2017 06:31SSI File#: [id number] #: [id number]/Reviewed by12/17/[address] [facility] PATIENT NAME: JACOB LANDA R1Bam [facility] [address] [address]z MEDICAL REC #: [id number], [place] [address] [facility] RE[facility] STATCARE PHYSICIAN [facility] [place] Basic Metabolic Profon 07-20 (cont.) Normal [facility] Comment on above: Result Comment: Aver age GFR for 60-69 years old: 85 mL/min/1.73sq mChronic Kidney Disease: <60 mL/min/1.73sq mKidney failure: <15 mL/min/1.73sq meGFR calculated using average adult body mass. Additional eGFR calculator available at:http://www.[employer]/multiple_crcl_2011.htmPerformed at [facility] [address] [place] [address] ([phone] Performed By: #### C DP, BMP, BNP, TROPI ####[facility] [place] [address] Anion gap 12 mmol/L Normal 9-17 [facility] Comment on above: Performed By: #### C DP, BMP, BNP, TROPI ####[facility] [place] [address] BUN/CRE Ratio 13 Normal 9-20 [facility] Comment on above: Performed By: #### C DP, BMP, BNP, TROPI ####[facility] [place] [address] Calcium 9.3 mg/dL Normal 8.6-10.4 [facility] Comment on above: Performed By: #### C DP, BMP, BNP, TROPI ####[address] [place] [address] Chloride 103 mmol/L Normal 98-107 [facility] Comment on above: Performed By: #### C DP, BMP, BNP, TROPI ####[place] [address] [place] [address] CO2 27 mmol/L Normal 20-31 [facility] Comment on above: Performed By: #### C DP, BMP, BNP, TROPI ####[address] [place] [address] Creatinine 1.20 mg/dL Normal 0.70-1.20 [facility] Comment on above: Performed By: #### C DP, BMP, BNP, TROPI ####[place] [address] [place] [address] eGFR (non-black) mL/min/{1.73_m2} Normal >60 [facility] Comment on above: Performed By: #### C DP, BMP, BNP, TROPI ####[place] [address] [place] [address] Glucose mass conc 182 mg/dL High 70-99 [facility] Comment on above: Performed By: #### C DP, BMP, BNP, TROPI ####[place] [address] [facility] [place] [address] Potassium molar conc 3.7 mmol/L Normal 3.7-5.3 [facility] Comment on above: Performed By: #### C DP, BMP, BNP, TROPI ####[address] [place] [address] Sodium 142 mmol/L Normal 135-144 [facility] Comment on above: Performed By: #### C DP, BMP, BNP, TROPI ####[place] [address] [facility], [place] [phone] Urea nitrogen 16 mg/dL Normal 8-23 [facility] Comment on above: Performed By: #### C DP, BMP, BNP, TROPI ####[address], [place] [phone] Staging: NOT REPORTED Normal [facility] Comment on above: Performed By: #### C DP, BMP, BNP, TROPI ####[address] [place] [address](115) Brain Natri. Peptideon 07-20 BNP Normal [facility] Comment on above: Result Comment: Pro- BNP Reference Range:Rule Out: <300Grey Zone: Age <50 300-450 Age 50-75 300-900 Age >75 300-1800Usually represents mild to moderate HF but other cardiopulmonary causes cannot be ruled out.Rule In: Age <50 >450 Age 50-75 >900 Age >75 >1800Performed at [facility] [address] [facility] [place], [place] [phone] Performed By: #### C DP, BMP, BNP, TROPI ####[place] [address] [facility], [place] [phone](145) BNP 109 pg/mL Normal <300 [facility] Comment on above: Result Comment: Pro- BNP results cannot be compared to BNP results. Performed By: #### C DP, BMP, BNP, TROPI ####[place] [address] CBC with Diffon 07-20-2017 Abs. Basophil 0.00 k/uL Normal 0.0-0.2 [facility] Comment on above: Result Comment: Perf ormed at [facility] [address] [place] [address] Performed By: #### C DP, BMP, BNP, TROPI ####[place] [address] Abs.Neutrophil (Seg) 3.30 k/uL Normal 2.1-6.5 [facility] Comment on above: Performed By: #### C DP, BMP, BNP, TROPI ####[place] [address] Auto Diff Performed YES Normal [facility] Comment on above: Performed By: #### C DP, BMP, BNP, TROPI ####[place] [address] Basophils/100 WBC Auto (Bld) 1 % Normal 0-2 [facility] Comment on above: Performed By: #### C DP, BMP, BNP, TROPI ####[place] [address] Eosinophils 0.10 10*3/uL Normal 0.0-0.4 [facility] Comment on above: Performed By: #### C DP, BMP, BNP, TROPI ####[place] [address] Eosinophils/100 leukocytes 2 % Normal 0-5 [facility] Comment on above: Performed By: #### C DP, BMP, BNP, TROPI ####[facility] [facility] [place] [address] Erythrocyte distribution width Auto Ratio (RBC) 13.7 % Normal 12.1-15.2 [facility] Comment on above: Performed By: #### C DP, BMP, BNP, TROPI ####[facility] [facility] [place] [address] Erythrocytes (RBC) 5.00 10*6/uL Normal 4.5-5.9 [facility] Comment on above: Performed By: #### C DP, BMP, BNP, TROPI ####[address] [place] [address] Hematocrit (HCT) 43.2 % Normal 41-53 [facility] Comment on above: Performed By: #### C DP, BMP, BNP, TROPI ####[address] [place] [address] Hemoglobin mass conc (Bld) 14.7 g/dL Normal 13.5-17.5 [facility] Comment on above: Performed By: #### C DP, BMP, BNP, TROPI ####[address] [place] [address] Lymphocytes 1.00 10*3/uL Normal 1.0-4.8 [facility] Comment on above: Performed By: #### C DP, BMP, BNP, TROPI ####[place] [id number] [facility] [place] [address] Lymphocytes/100 leukocytes 22 % Normal 13-44 [facility] Comment on above: Performed By: #### C DP, BMP, BNP, TROPI ####[place] [id number] [facility] [place] [address] MCH 29.4 pg Normal 26-34 [facility] Comment on above: Performed By: #### C DP, BMP, BNP, TROPI ####[place] [id number] [place] [address] MCHC mass conc (RBC) 34.0 g/dL Normal 31-37 [facility] Comment on above: Performed By: #### C DP, BMP, BNP, TROPI ####[facility] [place] [address] MCV 86.4 fL Normal 80-100 [facility] Comment on above: Performed By: #### C DP, BMP, BNP, TROPI ####[facility] [place] [address] Monocytes 0.30 10*3/uL Normal 0.0-1.0 [facility] Comment on above: Performed By: #### C DP, BMP, BNP, TROPI ####[place] [address] [place] [address] Monocytes/100 leukocytes 5 % Normal 5-9 [facility] Comment on above: Performed By: #### C DP, BMP, BNP, TROPI ####[place] [address] [place] [address] Neutrophil (Seg) 70 % Normal 39-75 [facility] Comment on above: Performed By: #### C DP, BMP, BNP, TROPI ####[place] [address] [place] [address] Platelets 165 10*3/uL Normal 140-450 [facility] Comment on above: Performed By: #### C DP, BMP, BNP, TROPI ####[place] [id number] [phone] WBC (Leukocytes) 4.6 10*3/uL Normal 3.5-11.0 [facility] Comment on above: Performed By: #### C DP, BMP, BNP, TROPI ####[place] [id number] [place] [address] Erythrocyte morphology NOT REPORTED Normal [facility] Comment on above: Performed By: #### C DP, BMP, BNP, TROPI ####[facility] [place] [address] Erythrocytes (RBC) NOT REPORTED Normal [facility] Comment on above: Performed By: #### C DP, BMP, BNP, TROPI ####[facility] [place] [address] Granulocytes/100 WBC (Bld) NOT REPORTED Normal 0.00-0.30 [facility] Comment on above: Performed By: #### C DP, BMP, BNP, TROPI ####[facility] [place] [address] Immature granulocytes #/vol (Bld) NOT REPORTED Normal 0 [facility] Comment on above: Performed By: #### C DP, BMP, BNP, TROPI ####[facility] [place] [address] Platelet mean volume (PMV) NOT REPORTED Normal 6.0-12.0 [facility] Comment on above: Performed By: #### C DP, BMP, BNP, TROPI ####[facility] [place] [address] Platelets NOT REPORTED Normal [facility] Comment on above: Performed By: #### C DP, BMP, BNP, TROPI ####[facility] [place] [address] WBC Morphology NOT REPORTED Normal [facility] Comment on above: Performed By: #### C DP, BMP, BNP, TROPI ####[facility] [place] [address] ED Noteon 07-20-2017 HIM IP Note OR National Insurance Officer Normal [facility] HIM IP Note OR National Insurance Officer Normal [facility] ED Provider Noteon 04-13-201 8 HIM IP Note OR National Insurance Officer Normal [facility] Troponinon 07-20-2017 Troponin I.cardiac mass conc Normal [facility] Comment on above: Result Comment: Refe rence Range: <0.03 Within reference range. 0.03-0.09 Possible myocardial damage.Repeat at appropriate intervals to rule out chronic elevation. >= 0.10 Indicative of myocardial damage.Patients with high levels of Biotin oral intake (i.e >5mg/day) may have falsely decreased Troponin T levels. Samples collected within 8 hours of biotin intake may require additional information for diagnosis.Performed at [facility] [address] [facility] [place] [address] Performed By: #### T ROPI ####[place] [id number] [facility].[place] [phone] Troponin T.cardiac mass conc ug/L Normal <0.03 [facility] Comment on above: Result Comment: Trop onin T results cannot be compared to Troponin-I results. Performed By: #### T ROPI ####[place] [id number] Troponin I.cardiac mass conc Normal [facility] Comment on above: Result Comment: Refe rence Range: <0.03 Within reference range. 0.03-0.09 Possible myocardial damage.Repeat at appropriate intervals to rule out chronic elevation. >= 0.10 Indicative of myocardial damage.Patients with high levels of Biotin oral intake (i.e >5mg/day) may have falsely decreased Troponin T levels. Samples collected within 8 hours of biotin intake may require additional information for diagnosis.Performed at [facility] [address] [facility]. [place] [phone] Performed By: #### C DP, BMP, BNP, TROPI ####[place] [id number] [facility] [place] [address] Troponin T.cardiac mass conc ug/L Normal <0.03 [facility] Comment on above: Result Comment: Trop onin T results cannot be compared to Troponin-I results. Performed By: #### C DP, BMP, BNP, TROPI ####[facility] [place] [address] XR CHEST (2 VW)on 07-20-2017 XR CHEST (2 VW) Chest, 2 views on 3 radiographs:CLINICAL HISTORY: Shortness of breath.COMPARISON: 07/15/2013.FINDINGS: Prior median sternotomy and CABG. Cardiomediastinal contour is within normal limits. No focal consolidative process, pulmonary edema, pleural effusion or pneumothorax. Osseous structures are intact.IMPRESSION: No acute cardiopulmonary process.Interpreted by:HUDSON Diasigned by:Benito Andre MD07/20/17inal result Normal [facility] Vital Signs Date Time Vital Sign Value Performing Clinician Faci carmen 12-24-2024 09:43-0400 Body mass index (BMI) [Ratio] 21.32 kg/m2 Bobby Swank BOATING SAFETY OFFICER.LIFE MANAGEMENT TEACHER Work Phone: [facility] 12-24-2024 09:43-0400 Body temperature 98.01 [degF] Bobby Swank BOATING SAFETY OFFICER.LIFE MANAGEMENT TEACHER Work Phone: [facility] 12-24-2024 09:43-0400 Body weight 67.4 kg Bobby Swank BOATING SAFETY OFFICER.LIFE MANAGEMENT TEACHER Work Phone: [facility] 12-24-2024 09:43-0400 Diastolic blood pressure 72 mm[Hg] Bobby Swank BOATING SAFETY OFFICER.LIFE MANAGEMENT TEACHER Work Phone: [facility] 12-24-2024 09:43-0400 Heart rate 79 /min Bobby Swank BOATING SAFETY OFFICER.LIFE MANAGEMENT TEACHER Work Phone: [facility] 12-24-2024 09:43-0400 Respiratory rate 18 /min Bobby Swank BOATING SAFETY OFFICER.LIFE MANAGEMENT TEACHER Work Phone: [facility] 12-24-2024 09:43-0400 SaO2% (BldA) [Mass fraction] 98 % Bobby Swank BOATING SAFETY OFFICER.LIFE MANAGEMENT TEACHER Work Phone: [facility] 12-24-2024 09:43-0400 Systolic blood pressure 122 mm[Hg] Bobby Swank BOATING SAFETY OFFICER.LIFE MANAGEMENT TEACHER Work Phone: [facility] 11-14-2024 09:30-0400 Body height 175.[address] Yaw Yoder Work Phone: [facility] 11-14-2024 09:30-0400 Body mass index (BMI) [Ratio] 22.8 kg/m2 Dr. Yaw Singh MD Work Phone: [facility] 11-14-2024 09:30-0400 Body weight 70.[address] Yaw Yoder Work Phone: [facility] 11-07-2024 09:37-0400 Body mass index (BMI) [Ratio] 22.38 kg/m2 Richard Goi DO Work Phone: [facility] 11-07-2024 09:37-0400 Body temperature 97.11 [degF] Richard Masci DO Work Phone: [facility] 11-07-2024 09:37-0400 Body weight 70.76 kg Richard Masci DO Work Phone: [facility] 11-07-2024 09:37-0400 Diastolic blood pressure 71 mm[Hg] Richard Masci DO Work Phone: [facility] 11-07-2024 09:37-0400 Heart rate 87 /min Richard Masci DO Work Phone: [facility] 11-07-2024 09:37-0400 SaO2% (BldA) [Mass fraction] 95 % Richard Masci DO Work Phone: [facility] 11-07-2024 09:37-0400 Systolic blood pressure 111 mm[Hg] Richard Goi DO Work Phone: [facility] 10-23-2024 14:53-0400 Body height 177.8 cm Delicia Díaz MD Work Phone: [facility] 10-23-2024 14:53-0400 Body mass index (BMI) [Ratio] 23.02 kg/m2 Delicia Díaz MD Work Phone: [facility] 10-23-2024 14:53-0400 Body weight 72.76 kg Delicia Díaz MD Work Phone: [facility] 10-23-2024 14:53-0400 Diastolic blood pressure 62 mm[Hg] Delicia Díaz MD Work Phone: [facility] 10-23-2024 14:53-0400 Heart rate 83 /min Delicia Díaz MD Work Phone: [facility] 10-23-2024 14:53-0400 Respiratory rate 21 /min Delicia Díaz MD Work Phone: [facility] 10-23-2024 14:53-0400 SaO2% (BldA) [Mass fraction] 95 % Delicia Díaz MD Work Phone: [facility] 10-23-2024 14:53-0400 Systolic blood pressure 112 mm[Hg] Delicia Díaz MD Work Phone: [facility] 10-15-2024 09:21-0400 Body height 175.[address] Yaw Yoder Work Phone: [facility] 10-15-2024 09:21-0400 Body weight 73.[address] Yaw Yoder Work Phone: [facility] 10-14-2024 09:21-0400 Body mass index (BMI) [Ratio] 23.8 kg/m2 Dr. Yaw Singh MD Work Phone: [facility] 10-07-2024 12:33-0400 Body mass index (BMI) [Ratio] 23.1 kg/m2 Usha Mcgovern PA-C Work Phone: [facility] 10-07-2024 12:33-0400 Body temperature 97.2 [degF] Usha Troncoso Work Phone: [facility] 10-07-2024 12:33-0400 Body weight 73.03 kg Usha Mcgovern PA- C Work Phone: [facility] 10-07-2024 12:33-0400 Diastolic blood pressure 60 mm[Hg] Usha Mcgovern PA-C Work Phone: [facility] 10-07-2024 12:33-0400 Heart rate 88 /min Usha Mcgovern PA- C Work Phone: [facility] 10-07-2024 12:33-0400 Respiratory rate 18 /min Usha Mcgovern PA- C Work Phone: [facility] 10-07-2024 12:33-0400 Systolic blood pressure 98 mm[Hg] Usha Mcgovern PA-C Work Phone: [facility] 09-22-2024 07:26-0400 Body mass index (BMI) [Ratio] 22.96 kg/m2 Yaw Singh MD Work Phone: [facility] 09-22-2024 07:26-0400 Body weight 72.58 kg Yaw Singh MD Work Phone: [facility] 09-22-2024 07:26-0400 Diastolic blood pressure 68 mm[Hg] Yaw Singh MD Work Phone: [facility] 09-22-2024 07:26-0400 Heart rate 104 /min Yaw Singh MD Work Phone: [facility] 09-22-2024 07:26-0400 Respiratory rate 18 /min Yaw Singh MD Work Phone: [facility] 09-22-2024 07:26-0400 SaO2% (BldA) [Mass fraction] 96 % Yaw Singh MD Work Phone: [facility] 09-22-2024 07:26-0400 Systolic blood pressure 112 mm[Hg] Yaw Singh MD Work Phone: [facility] 09-17-2024 22:19-0400 Body temperature 98.2 [degF] Dr. Yaw Yoder Work Phone: 7(068)636-326860 [place] [address] 09-17-2024 22:19-0400 Diastolic blood pressure 56 mm[Hg] Dr. Yaw Singh MD Work Phone: 7(889)408-889660 [place] [address] 09-17-2024 22:19-0400 Heart rate 74 /min Dr. Yaw Yoder Work Phone: 3(857)048-465360 [place] [address] 09-17-2024 22:19-0400 Respiratory rate 14 /min Dr. Yaw Yoder Work Phone: 7(834)317-987276 [place] [address] 09-17-2024 22:19-0400 SaO2% (BldA) [Mass fraction] 95 % Dr. Yaw Singh MD Work Phone: 2(062)693-554560 [place] [address] 09-17-2024 22:19-0400 Systolic blood pressure 101 mm[Hg] Dr. Yaw Singh MD Work Phone: 7(768)970-420876 [place] [address] 09-17-2024 17:30-0400 Body height 175.[address] Yaw Yoder Work Phone: [facility] 09-17-2024 17:30-0400 Body mass index (BMI) [Ratio] 23.6 kg/m2 Dr. Yaw Singh MD Work Phone: [facility] 09-17-2024 17:30-0400 Body weight 72.[address] Yaw Yoder Work Phone: [facility] 09-12-2024 08:41-0400 Body mass index (BMI) [Ratio] 23.34 kg/m2 Yaw Smith APRN.LIFE MANAGEMENT TEACHER Work Phone: [facility] 09-12-2024 08:41-0400 Body temperature 97.81 [degF] Yaw Smith APRN.LIFE MANAGEMENT TEACHER Work Phone: [facility] 09-12-2024 08:41-0400 Body weight 73.8 kg Yaw Smith APRN.LIFE MANAGEMENT TEACHER Work Phone: [facility] 09-12-2024 08:41-0400 Diastolic blood pressure 70 mm[Hg] [facility] BOATING SAFETY OFFICER.LIFE MANAGEMENT TEACHER Work Phone: [facility] 09-12-2024 08:41-0400 Heart rate 86 /min [facility] BOATING SAFETY OFFICER.LIFE MANAGEMENT TEACHER Work Phone: [facility] 09-12-2024 08:41-0400 Respiratory rate 18 /min Yaw [facility] BOATING SAFETY OFFICER.LIFE MANAGEMENT TEACHER Work Phone: [facility] 09-12-2024 08:41-0400 SaO2% (BldA) [Mass fraction] 97 % Ywa [facility] BOATING SAFETY OFFICER.LIFE MANAGEMENT TEACHER Work Phone: [facility] 09-12-2024 08:41-0400 Systolic blood pressure 118 mm[Hg] [facility] BOATING SAFETY OFFICER.LIFE MANAGEMENT TEACHER Work Phone: [facility] 09-02-2024 13:52-0400 Body temperature 97.5 [degF] Dr. Yaw Yoder Work Phone: [facility] 09-02-2024 13:52-0400 Body weight 73.[address] Yaw Yoder Work Phone: [facility] 09-02-2024 13:52-0400 Diastolic blood pressure 71 mm[Hg] Dr. Yaw Singh MD Work Phone: [facility] 09-02-2024 13:52-0400 Heart rate 112 /min Dr. Yaw Yoder Work Phone: [facility] 09-02-2024 13:52-0400 Respiratory rate 16 /min Dr. Yaw Yoder Work Phone: [facility] 09-02-2024 13:52-0400 SaO2% (BldA) [Mass fraction] 96 % Dr. Yaw Singh MD Work Phone: [facility] 09-02-2024 13:52-0400 Systolic blood pressure 107 mm[Hg] Dr. Yaw Singh MD Work Phone: [facility] 08-20-2024 08:23-0400 Body mass index (BMI) [Ratio] 23.5 kg/m2 Steve Clutter PA-C Work Phone: [facility] 08-20-2024 08:23-0400 Body temperature 97.2 [degF] Steve Clutter PA-C Work Phone: [facility] 08-20-2024 08:23-0400 Body weight 74.3 kg Steve Clutter PA-C Work Phone: [facility] 08-20-2024 08:23-0400 Diastolic blood pressure 74 mm[Hg] Steve Clutter PA-C Work Phone: [facility] 08-20-2024 08:23-0400 Heart rate 84 /min Steve Clutter PA-C Work Phone: [facility] 08-20-2024 08:23-0400 Respiratory rate 16 /min Steve Clutter PA-C Work Phone: [facility] 08-20-2024 08:23-0400 SaO2% (BldA) [Mass fraction] 96 % Steve Clutter PA-C Work Phone: [facility] 08-20-2024 08:23-0400 Systolic blood pressure 118 mm[Hg] Steve Clutter PA-C Work Phone: [facility] 08-05-2024 12:39-0400 Body mass index (BMI) [Ratio] 23.82 kg/m2 Krislyn Aberegg PA Work Phone: [facility] 08-05-2024 12:39-0400 Body temperature 98.2 [degF] Krislyn Aberegg PA Work Phone: [facility] 08-05-2024 12:39-0400 Body weight 75.3 kg Krislyn Aberegg PA Work Phone: [facility] 08-05-2024 12:39-0400 Diastolic blood pressure 64 mm[Hg] Krislyn Aberegg PA Work Phone: [facility] 04-29-2025 12:39-0400 Heart rate 90 /min Krislyn Aberegg PA Work Phone: [facility] 08-05-2024 12:39-0400 Respiratory rate 16 /min Krislyn Aberegg PA Work Phone: [facility] 08-05-2024 12:39-0400 SaO2% (BldA) [Mass fraction] 98 % Krislyn Aberegg PA Work Phone: [facility] 08-05-2024 12:39-0400 Systolic blood pressure 122 mm[Hg] Krislyn Aberegg PA Work Phone: [facility] 07-22-2024 14:21-0400 Body temperature 98.2 [degF] Dr. Yaw Yoder Work Phone: [facility] 07-22-2024 14:21-0400 Body weight 74.[address] Yaw Yoder Work Phone: [facility] 07-22-2024 14:21-0400 Diastolic blood pressure 65 mm[Hg] Dr. Yaw Singh MD Work Phone: [facility] 07-22-2024 14:21-0400 Heart rate 86 /min Dr. Yaw Yoder Work Phone: [facility] 07-22-2024 14:21-0400 Respiratory rate 16 /min Dr. Yaw Yoder Work Phone: [facility] 07-22-2024 14:21-0400 SaO2% (BldA) [Mass fraction] 97 % Dr. Yaw Singh MD Work Phone: [facility] 07-22-2024 14:21-0400 Systolic blood pressure 103 mm[Hg] Dr. Yaw Singh MD Work Phone: [facility] 06-30-2024 13:22-0400 Body mass index (BMI) [Ratio] 23.24 kg/m2 Yaw Singh MD Work Phone: [facility] 06-30-2024 13:22-0400 Body temperature 97.7 [degF] Yaw Singh MD Work Phone: [facility] 06-30-2024 13:22-0400 Body weight 73.48 kg Yaw Singh MD Work Phone: [facility] 06-30-2024 13:22-0400 Diastolic blood pressure 74 mm[Hg] Yaw Singh MD Work Phone: [facility] 06-30-2024 13:22-0400 Heart rate 70 /min Yaw Singh MD Work Phone: [facility] 06-30-2024 13:22-0400 Respiratory rate 18 /min Yaw Singh MD Work Phone: [facility] 06-30-2024 13:22-0400 Systolic blood pressure 112 mm[Hg] Yaw Singh MD Work Phone: [facility] 06-30-2024 11:17-0400 Body temperature 98.4 [degF] Dr. Yaw Yoder Work Phone: [facility] 06-30-2024 11:17-0400 Diastolic blood pressure 73 mm[Hg] Dr. Yaw Singh MD Work Phone: [facility] 06-30-2024 11:17-0400 Heart rate 79 /min Dr. Yaw Yoder Work Phone: [facility] 06-30-2024 11:17-0400 Respiratory rate 16 /min Dr. Yaw Yoder Work Phone: [facility] 06-30-2024 11:17-0400 SaO2% (BldA) [Mass fraction] 99 % Dr. Yaw Singh MD Work Phone: [facility] 06-30-2024 11:17-0400 Systolic blood pressure 104 mm[Hg] Dr. Yaw Singh MD Work Phone: [facility] 06-30-2024 07:02-0400 Body height 175.[address] Yaw Yoder Work Phone: [facility] 06-30-2024 07:02-0400 Body mass index (BMI) [Ratio] 23.8 kg/m2 Dr. Yaw Singh MD Work Phone: [facility] 06-30-2024 07:02-0400 Body weight 73.[address] Yaw Yoder Work Phone: [facility] 06-11-2024 08:10-0500 Body height 177.8 cm [facility] Work Phone: [facility] 06-11-2024 08:10-0500 Body mass index (BMI) [Ratio] 23.38 kg/m2 [facility] Work Phone: [facility] 06-11-2024 08:10-0500 Body temperature 98.49 [degF] [facility] Work Phone: [facility] 06-11-2024 08:10-0500 Body weight 73.9 kg [facility] Work Phone: [facility] 06-11-2024 08:10-0500 Diastolic blood pressure 76 mm[Hg] [facility] Work Phone: [facility] 06-11-2024 08:10-0500 Heart rate 93 /min [facility] Work Phone: [facility] 06-11-2024 08:10-0500 SaO2% (BldA) [Mass fraction] 99 % [facility] Work Phone: [facility] 06-11-2024 08:10-0500 Systolic blood pressure 128 mm[Hg] [facility] Work Phone: [facility] 06-11-2024 08:07-0500 Body height 177.8 cm [facility] Work Phone: [facility] 06-11-2024 08:07-0500 Body mass index (BMI) [Ratio] 23.38 kg/m2 [facility] Work Phone: [facility] 06-11-2024 08:07-0500 Body temperature 98.49 [degF] [facility] Work Phone: [facility] 06-11-2024 08:07-0500 Body weight 73.9 kg [facility] Work Phone: [facility] 06-11-2024 08:07-0500 Diastolic blood pressure 76 mm[Hg] [facility] Work Phone: [facility] 06-11-2024 08:07-0500 Heart rate 93 /min [facility] Work Phone: [facility] 06-11-2024 08:07-0500 SaO2% (BldA) [Mass fraction] 98 % [facility] Work Phone: [facility] 06-11-2024 08:07-0500 Systolic blood pressure 128 mm[Hg] [facility] Work Phone: [facility] 05-07-2024 08:28-0500 Body mass index (BMI) [Ratio] 23.5 kg/m2 Edwin Montes BOATING SAFETY OFFICER.LIFE MANAGEMENT TEACHER Work Phone: [facility] 05-07-2024 08:28-0500 Body temperature 97.7 [degF] Edwin Montes BOATING SAFETY OFFICER.LIFE MANAGEMENT TEACHER Work Phone: [facility] 05-07-2024 08:28-0500 Body weight 74.3 kg Edwin Montes BOATING SAFETY OFFICER.LIFE MANAGEMENT TEACHER Work Phone: [facility] 05-07-2024 08:28-0500 Diastolic blood pressure 78 mm[Hg] Edwin Montes BOATING SAFETY OFFICER.LIFE MANAGEMENT TEACHER Work Phone: [facility] 05-07-2024 08:28-0500 Heart rate 117 /min Edwin Montes BOATING SAFETY OFFICER.LIFE MANAGEMENT TEACHER Work Phone: [facility] 05-07-2024 08:28-0500 Respiratory rate 16 /min Edwin Montes BOATING SAFETY OFFICER.LIFE MANAGEMENT TEACHER Work Phone: [facility] 05-07-2024 08:28-0500 SaO2% (BldA) [Mass fraction] 98 % Edwin King ADALGISA.LIFE MANAGEMENT TEACHER Work Phone: [facility] 05-07-2024 08:28-0500 Systolic blood pressure 118 mm[Hg] Edwin Montes APRN.LIFE MANAGEMENT TEACHER Work Phone: [facility] 05-02-2024 15:29-0500 Body mass index (BMI) [Ratio] 23.1 kg/m2 Richard Masci DO Work Phone: [facility] 05-02-2024 15:29-0500 Body temperature 98.4 [degF] Richard Masci DO Work Phone: [facility] [facility]24 15:29-0500 Body weight 73.03 kg Richard Masci DO Work Phone: [facility] 05-02-2024 15:29-0500 Diastolic blood pressure 82 mm[Hg] Richard Masci DO Work Phone: [facility] 05-02-2024 15:29-0500 Heart rate 77 /min Richard Masci DO Work Phone: [facility] 05-02-2024 15:29-0500 SaO2% (BldA) [Mass fraction] 95 % Richard Masci DO Work Phone: [facility] 05-02-2024 15:29-0500 Systolic blood pressure 129 mm[Hg] Richard Masci DO Work Phone: [facility] 04-29-2024 13:43-0500 Body height 177.[address] Yaw Yoder Work Phone: [facility] 04-29-2024 13:43-0500 Body mass index (BMI) [Ratio] 22.5 kg/m2 Dr. Yaw Singh MD Work Phone: [facility] 04-29-2024 13:43-0500 Body weight 71.[address] Yaw Yoder Work Phone: [facility] 04-29-2024 13:43-0500 Diastolic blood pressure 69 mm[Hg] Dr. Yaw Singh MD Work Phone: 1(210)463-360076 [place] [address] 04-29-2024 13:43-0500 Heart rate 96 /min Dr. Yaw Yoder Work Phone: 8(505)567-905876 [place] [address] 04-29-2024 13:43-0500 Respiratory rate 16 /min Dr. Yaw Yoder Work Phone: 1(951)756-030876 [place] [address] 04-29-2024 13:43-0500 Systolic blood pressure 98 mm[Hg] Dr. Yaw Singh MD Work Phone: 1(741)418-525176 [place] [address] 04-28-2024 14:24-0500 Body temperature 97.7 [degF] Dr. Yaw Yoder Work Phone: 5(949)746-092176 [place] [address] 04-28-2024 14:24-0500 Body weight 72.[address] Yaw Yoder Work Phone: 0(287)775-576076 [place] [address] 04-28-2024 14:24-0500 Diastolic blood pressure 73 mm[Hg] Dr. Yaw Singh MD Work Phone: 6(669)898-406976 [place] [address] 04-28-2024 14:24-0500 Heart rate 77 /min Dr. Yaw Yoder Work Phone: 1(423)932-819576 [place] [address] 04-28-2024 14:24-0500 Respiratory rate 16 /min Dr. Yaw Yoder Work Phone: 4(073)862-219476 [place] [address] 04-28-2024 14:24-0500 SaO2% (BldA) [Mass fraction] 98 % Dr. Yaw Singh MD Work Phone: 5(530)750-335676 [place] [address] 04-28-2024 14:24-0500 Systolic blood pressure 115 mm[Hg] Dr. Yaw Singh MD Work Phone: 4(195)168-555476 [place] [address] 03-11-2024 10:00-0500 Body height 177.8 cm Yaw Singh MD Work Phone: 3(459)136-899665 [place] [address] 03-11-2024 10:00-0500 Body mass index (BMI) [Ratio] 22.53 kg/m2 Yaw Singh MD Work Phone: [facility] 03-11-2024 10:00-0500 Body weight 71.22 kg Yaw Singh MD Work Phone: [facility] 03-11-2024 10:00-0500 Diastolic blood pressure 76 mm[Hg] Yaw Singh MD Work Phone: [facility] 03-11-2024 10:00-0500 Heart rate 94 /min Yaw Singh MD Work Phone: [facility] 03-11-2024 10:00-0500 Respiratory rate 16 /min Yaw Singh MD Work Phone: [facility] 03-11-2024 10:00-0500 Systolic blood pressure 120 mm[Hg] Yaw Singh MD Work Phone: [facility] 01-31-2024 09:28-0400 Body height 177.8 cm Zachary Seabold BOATING SAFETY OFFICER.LIFE MANAGEMENT TEACHER Work Phone: [facility] 01-31-2024 09:28-0400 Body mass index (BMI) [Ratio] 22.24 kg/m2 Zachary Seabold BOATING SAFETY OFFICER.LIFE MANAGEMENT TEACHER Work Phone: [facility] 01-31-2024 09:28-0400 Body temperature 97.7 [degF] Zachary Seabold BOATING SAFETY OFFICER.LIFE MANAGEMENT TEACHER Work Phone: [facility] 01-31-2024 09:28-0400 Body weight 70.31 kg Zachary Seabold BOATING SAFETY OFFICER.LIFE MANAGEMENT TEACHER Work Phone: [facility] 01-31-2024 09:28-0400 Diastolic blood pressure 71 mm[Hg] Zachary Seabold BOATING SAFETY OFFICER.LIFE MANAGEMENT TEACHER Work Phone: [facility] 01-31-2024 09:28-0400 Heart rate 89 /min Zachary Seabold BOATING SAFETY OFFICER.LIFE MANAGEMENT TEACHER Work Phone: [facility] 01-31-2024 09:28-0400 Respiratory rate 24 /min Zachary Seabold BOATING SAFETY OFFICER.LIFE MANAGEMENT TEACHER Work Phone: [facility] 01-31-2024 09:28-0400 SaO2% (BldA) [Mass fraction] 100 % Zachary Bardalesbold BOATING SAFETY OFFICER.LIFE MANAGEMENT TEACHER Work Phone: [facility] 01-31-2024 09:28-0400 Systolic blood pressure 103 mm[Hg] Zachary Bardalesbold BOATING SAFETY OFFICER.LIFE MANAGEMENT TEACHER Work Phone: [facility] 01-17-2024 10:38-0400 Body height 175.3 cm Yaw Singh MD Work Phone: [facility] 01-17-2024 10:38-0400 Body mass index (BMI) [Ratio] 23.48 kg/m2 Yaw Singh MD Work Phone: [facility] 01-17-2024 10:38-0400 Body weight 72.12 kg Yaw Singh MD Work Phone: [facility] 01-17-2024 10:38-0400 Diastolic blood pressure 67 mm[Hg] Yaw Singh MD Work Phone: [facility] 01-17-2024 10:38-0400 Heart rate 76 /min Yaw Singh MD Work Phone: [facility] 01-17-2024 10:38-0400 Systolic blood pressure 104 mm[Hg] Yaw Singh MD Work Phone: [facility] 01-15-2024 09:09-0400 Body mass index (BMI) [Ratio] 23.48 kg/m2 Richard Jenkins DO Work Phone: [facility] 01-15-2024 09:09-0400 Body temperature 97.81 [degF] Richard Jenkins DO Work Phone: [facility] 01-15-2024 09:09-0400 Body weight 72.12 kg Richard Jenkins DO Work Phone: [facility] 01-15-2024 09:09-0400 Diastolic blood pressure 80 mm[Hg] Richard Jenkins DO Work Phone: [facility] 01-15-2024 09:09-0400 Heart rate 91 /min Richard Jenkins DO Work Phone: [facility] 01-15-2024 09:09-0400 SaO2% (BldA) [Mass fraction] 98 % Richard Jenkins DO Work Phone: [facility] 01-15-2024 09:09-0400 Systolic blood pressure 111 mm[Hg] Richard Jenkins DO Work Phone: [facility] 01-03-2024 11:45-0400 Diastolic blood pressure 68 mm[Hg] Yaw Singh MD Work Phone: [facility] 01-03-2024 11:45-0400 Systolic blood pressure 100 mm[Hg] Yaw Singh MD Work Phone: [facility] 01-03-2024 11:05-0400 Body height 175.3 cm Yaw Singh MD Work Phone: [facility] 01-03-2024 11:05-0400 Body mass index (BMI) [Ratio] 25.31 kg/m2 Yaw Singh MD Work Phone: [facility] 01-03-2024 11:05-0400 Body weight 77.75 kg Yaw Singh MD Work Phone: [facility] 01-03-2024 11:05-0400 Heart rate 75 /min Yaw Singh MD Work Phone: [facility] 10-09-2023 08:29-0400 Body height 177.2 cm Helen Blair MD Work Phone: [facility] 10-09-2023 08:29-0400 Body mass index (BMI) [Ratio] 28.76 kg/m2 Helen Blair MD Work Phone: [facility] 10-09-2023 08:29-0400 Body temperature 98.01 [degF] Helen Blair MD Work Phone: [facility] 10-09-2023 08:29-0400 Body weight 90.27 kg Helen Blair MD Work Phone: [facility] 10-09-2023 08:29-0400 Diastolic blood pressure 87 mm[Hg] Helen Blair MD Work Phone: [facility] 10-09-2023 08:29-0400 Heart rate 75 /min Helen Blair MD Work Phone: [facility] 10-09-2023 08:29-0400 Respiratory rate 18 /min Helen Blair MD Work Phone: [facility] 10-09-2023 08:29-0400 SaO2% (BldA) [Mass fraction] 96 % Helen Blair MD Work Phone: [facility] 10-09-2023 08:29-0400 Systolic blood pressure 133 mm[Hg] Helen Blair MD Work Phone: [facility] 10-05-2023 09:55-0400 Body mass index (BMI) [Ratio] 28.9 kg/m2 Yaw Singh MD Work Phone: [facility] 10-05-2023 09:55-0400 Body weight 90.72 kg Yaw Singh MD Work Phone: [facility] 10-05-2023 09:55-0400 Diastolic blood pressure 82 mm[Hg] Yaw Singh MD Work Phone: [facility] 10-05-2023 09:55-0400 Heart rate 80 /min Yaw Singh MD Work Phone: [facility] 10-05-2023 09:55-0400 Respiratory rate 20 /min Yaw Singh MD Work Phone: [facility] 10-05-2023 09:55-0400 Systolic blood pressure 124 mm[Hg] Yaw Singh MD Work Phone: [facility] 09-13-2023 07:11-0400 Body mass index (BMI) [Ratio] 28.04 kg/m2 Usha Mcgovern PA-C Work Phone: [facility] 09-13-2023 07:11-0400 Body temperature 97.59 [degF] Usha Mcgovern PA- C Work Phone: [facility] 09-13-2023 07:11-0400 Body weight 88 kg Ushagerald Mcgovern PA- C Work Phone: [facility] 09-13-2023 07:11-0400 Diastolic blood pressure 76 mm[Hg] Usha Mcgovern PA-C Work Phone: [facility] 09-13-2023 07:11-0400 Heart rate 85 /min Usha Mcgovern PA- C Work Phone: [facility] 09-13-2023 07:11-0400 Respiratory rate 16 /min Usha Mcgovern PA- C Work Phone: [facility] 09-13-2023 07:11-0400 SaO2% (BldA) [Mass fraction] 99 % Usha Mcgovern PA-C Work Phone: [facility] 09-13-2023 07:11-0400 Systolic blood pressure 114 mm[Hg] Usha Mcgovern PA-C Work Phone: [facility] 08-10-2023 09:44-0400 Body mass index (BMI) [Ratio] 28.33 kg/m2 Richard Masci DO Work Phone: [facility] 08-10-2023 09:44-0400 Body temperature 99.19 [degF] Richard Masci DO Work Phone: [facility] 08-10-2023 09:44-0400 Body weight 88.91 kg Richard Masci DO Work Phone: [facility] 08-10-2023 09:44-0400 Diastolic blood pressure 80 mm[Hg] Richard Masci DO Work Phone: [facility] 08-10-2023 09:44-0400 Heart rate 71 /min Richard Masci DO Work Phone: [facility] 08-10-2023 09:44-0400 SaO2% (BldA) [Mass fraction] 97 % Richard Masci DO Work Phone: [facility] 08-10-2023 09:44-0400 Systolic blood pressure 136 mm[Hg] Richard Goi DO Work Phone: [facility] 07-12-2023 10:34-0400 Body height 177.2 cm Jesus Manuel Resendiz PA-C Work Phone: [facility] 07-12-2023 10:34-0400 Body weight 88 kg Jesus Manuel Resendiz PA-C Work Phone: [facility] 07-12-2023 10:34-0400 Diastolic blood pressure 69 mm[Hg] Jesus Manuel Resendiz PA-C Work Phone: [facility] 07-12-2023 10:34-0400 Heart rate 77 /min Jesus Manuel Resendiz PA-C Work Phone: [facility] 07-12-2023 10:34-0400 SaO2% (BldA) [Mass fraction] 100 % Jesus Manuel Resendiz PA-C Work Phone: [facility] 07-12-2023 10:34-0400 Systolic blood pressure 124 mm[Hg] Jesus Manuel Resendiz PA-C Work Phone: [facility] 06-19-2023 06:52-0400 Body temperature 97.11 [degF] Usha Mcgovern PA- C Work Phone: [facility] 06-19-2023 06:52-0400 Body weight 88 kg Usha Mcgovern PA- C Work Phone: [facility] 06-19-2023 06:52-0400 Diastolic blood pressure 82 mm[Hg] Usha Mcgovern PA-C Work Phone: [facility] 06-19-2023 06:52-0400 Heart rate 70 /min Usha Mcgovern PA- C Work Phone: [facility] 06-19-2023 06:52-0400 Respiratory rate 18 /min Usha Mcgovern PA- C Work Phone: [facility] 06-19-2023 06:52-0400 Systolic blood pressure 122 mm[Hg] Usha Mcgovern PA-C Work Phone: [facility] 06-05-2023 14:51-0500 Diastolic blood pressure 85 mm[Hg] Amos Rangel MD Work Phone: [facility] 06-05-2023 14:51-0500 Heart rate 72 /min Amos Rangel MD Work Phone: [facility] 06-05-2023 14:51-0500 Respiratory rate 26 /min Amos Rangel MD Work Phone: [facility] 06-05-2023 14:51-0500 SaO2% (BldA) [Mass fraction] 95 % Amos Rangel MD Work Phone: [facility] 06-05-2023 14:51-0500 Systolic blood pressure 132 mm[Hg] Amos Rangel MD Work Phone: [facility] 06-05-2023 14:32-0500 Body temperature 97.9 [degF] Amos Rangel MD Work Phone: [facility] 06-05-2023 12:25-0500 Body height 175.3 cm Amos Rangel MD Work Phone: [facility] 06-05-2023 12:25-0500 Body weight 87.54 kg Amos Rangel MD Work Phone: [facility] 02-27-2023 14:48-0500 Body temperature 97.11 [degF] Olvera BOATING SAFETY OFFICER.LIFE MANAGEMENT TEACHER Work Phone: [facility] 02-27-2023 14:48-0500 Body weight 88.36 kg Olvera BOATING SAFETY OFFICER.LIFE MANAGEMENT TEACHER Work Phone: [facility] 02-27-2023 14:48-0500 Diastolic blood pressure 84 mm[Hg] Olvera BOATING SAFETY OFFICER.LIFE MANAGEMENT TEACHER Work Phone: [facility] 02-27-2023 14:48-0500 Heart rate 67 /min Olvera BOATING SAFETY OFFICER.LIFE MANAGEMENT TEACHER Work Phone: [facility] 02-27-2023 14:48-0500 Respiratory rate 16 /min Olvera BOATING SAFETY OFFICER.LIFE MANAGEMENT TEACHER Work Phone: [facility] 02-27-2023 14:48-0500 SaO2% (BldA) [Mass fraction] 98 % Olvera BOATING SAFETY OFFICER.LIFE MANAGEMENT TEACHER Work Phone: [facility] 02-27-2023 14:48-0500 Systolic blood pressure 152 mm[Hg] Olvera BOATING SAFETY OFFICER.LIFE MANAGEMENT TEACHER Work Phone: [facility] 08-22-2022 08:08-0400 Body temperature 97.9 [degF] Richard Goi DO Work Phone: [facility] 08-22-2022 08:08-0400 Body weight 85.28 kg Richard Masci DO Work Phone: [facility] 08-22-2022 08:08-0400 Diastolic blood pressure 80 mm[Hg] Richard Masci DO Work Phone: [facility] 08-22-2022 08:08-0400 Heart rate 70 /min Richard Goi DO Work Phone: [facility] 08-22-2022 08:08-0400 SaO2% (BldA) [Mass fraction] 99 % Richard Masci DO Work Phone: [facility] 08-22-2022 08:08-0400 Systolic blood pressure 135 mm[Hg] Richard Masci DO Work Phone: [facility] 08-09-2022 12:35-0400 Body temperature 97.81 [degF] Usha Troncoso Work Phone: [facility] 08-09-2022 12:35-0400 Body weight 87.09 kg Usah Troncoso Work Phone: [facility] 08-09-2022 12:35-0400 Diastolic blood pressure 78 mm[Hg] Usha Mcgovern PA-C Work Phone: [facility] 08-09-2022 12:35-0400 Heart rate 72 /min Usha Mcgovern PA- C Work Phone: [facility] 08-09-2022 12:35-0400 Respiratory rate 16 /min Usha Mcgovern PA- C Work Phone: [facility] 08-09-2022 12:35-0400 Systolic blood pressure 122 mm[Hg] Usha Mcgovern PA-C Work Phone: [facility] 08-02-2022 13:42-0400 Body height 177 cm Season Gilbert DIANA.LIFE MANAGEMENT TEACHER Work Phone: [facility] 08-02-2022 13:42-0400 Body temperature 98.2 [degF] Season Gilbert DIANA.LIFE MANAGEMENT TEACHER Work Phone: [facility] 08-02-2022 13:42-0400 Body weight 84.5 kg Season Gilbert DIANA.LIFE MANAGEMENT TEACHER Work Phone: [facility] 08-02-2022 13:42-0400 Diastolic blood pressure 80 mm[Hg] Season Gilbert DIANA.LIFE MANAGEMENT TEACHER Work Phone: [facility] 08-02-2022 13:42-0400 Heart rate 57 /min Season Gilbert DIANA.LIFE MANAGEMENT TEACHER Work Phone: [facility] 08-02-2022 13:42-0400 SaO2% (BldA) [Mass fraction] 95 % Season Gilbert DIANA.LIFE MANAGEMENT TEACHER Work Phone: [facility] 08-02-2022 13:42-0400 Systolic blood pressure 138 mm[Hg] Season Gilbert DIANA.LIFE MANAGEMENT TEACHER Work Phone: [facility] 08-02-2022 12:30-0400 Diastolic blood pressure 79 mm[Hg] Francesca Vazquez MD Work Phone: [facility] 08-02-2022 12:30-0400 Heart rate 65 /min Francesca Vazquez MD Work Phone: [facility] 08-02-2022 12:30-0400 Respiratory rate 16 /min Francesca Vazquez MD Work Phone: [facility] 08-02-2022 12:30-0400 SaO2% (BldA) [Mass fraction] 96 % Francesca Vazquez MD Work Phone: [facility] 08-02-2022 12:30-0400 Systolic blood pressure 120 mm[Hg] Francesca Vazquez MD Work Phone: [facility] 08-02-2022 12:03-0400 Body temperature 97.3 [degF] Francesca Vazquez MD Work Phone: [facility] 06-23-2022 18:06-0400 Heart rate 73 /min Dr. Yaw Singh Work Phone: [facility] 06-23-2022 18:06-0400 Respiratory rate 18 /min Dr. Yaw Singh Work Phone: [facility] 06-23-2022 18:06-0400 SaO2% (BldA) [Mass fraction] 93 % Dr. Yaw Singh Work Phone: [facility] 06-23-2022 14:56-0400 Body height 177.[address] Yaw Singh Work Phone: [facility] 06-23-2022 14:56-0400 Body mass index (BMI) [Ratio] 23.4 kg/m2 Dr. Yaw Singh Work Phone: [facility] 06-23-2022 14:56-0400 Body temperature 97.8 [degF] Dr. Yaw Singh Work Phone: [facility] 06-23-2022 14:56-0400 Body weight 74.[address] Yaw Singh Work Phone: [facility] 06-23-2022 14:56-0400 Diastolic blood pressure 71 mm[Hg] Dr. Yaw Singh Work Phone: [facility] 06-23-2022 14:56-0400 Systolic blood pressure 124 mm[Hg] Dr. Yaw Singh Work Phone: [facility] 06-09-2022 14:46-0500 Body temperature 96.8 [degF] Yaw Matsonchuck BOATING SAFETY OFFICER.LIFE MANAGEMENT TEACHER Work Phone: [facility] 06-09-2022 14:46-0500 Body weight 90.72 kg Yaw Matsonchuck BOATING SAFETY OFFICER.LIFE MANAGEMENT TEACHER Work Phone: [facility] 06-09-2022 14:46-0500 Diastolic blood pressure 80 mm[Hg] [facility] BOATING SAFETY OFFICER.LIFE MANAGEMENT TEACHER Work Phone: [facility] 06-09-2022 14:46-0500 Heart rate 70 /min Yaw Smith BOATING SAFETY OFFICER.LIFE MANAGEMENT TEACHER Work Phone: [facility] 06-09-2022 14:46-0500 Respiratory rate 18 /min [facility] BOATING SAFETY OFFICER.LIFE MANAGEMENT TEACHER Work Phone: [facility] 06-09-2022 14:46-0500 SaO2% (BldA) [Mass fraction] 96 % [facility] BOATING SAFETY OFFICER.LIFE MANAGEMENT TEACHER Work Phone: [facility] 06-09-2022 14:46-0500 Systolic blood pressure 120 mm[Hg] [facility] BOATING SAFETY OFFICER.LIFE MANAGEMENT TEACHER Work Phone: [facility] 05-15-2022 08:33-0500 Body mass index (BMI) [Ratio] 27.6 kg/m2 Dr. Yaw Singh Work Phone: [facility] 05-15-2022 08:33-0500 Body weight 87.[address] Yaw Singh Work Phone: [facility] 05-15-2022 08:33-0500 Diastolic blood pressure 95 mm[Hg] Dr. Yaw Singh Work Phone: [facility] 05-15-2022 08:33-0500 Heart rate 63 /min Dr. Yaw Singh Work Phone: [facility] 05-15-2022 08:33-0500 Respiratory rate 18 /min Dr. Yaw Singh Work Phone: [facility] 05-15-2022 08:33-0500 SaO2% (BldA) [Mass fraction] 97 % Dr. Yaw Singh Work Phone: [facility] 05-15-2022 08:33-0500 Systolic blood pressure 149 mm[Hg] Dr. Yaw Singh Work Phone: [facility] 03-17-2022 13:33-0500 Body temperature 97.81 [degF] Dana Callow BOATING SAFETY OFFICER.CN P Work Phone: [facility] 03-17-2022 13:33-0500 Body weight 88 kg Dana Callow BOATING SAFETY OFFICER.CN P Work Phone: [facility] 03-17-2022 13:33-0500 Diastolic blood pressure 74 mm[Hg] Dana Callow BOATING SAFETY OFFICER.LIFE MANAGEMENT TEACHER Work Phone: [facility] 03-17-2022 13:33-0500 Heart rate 63 /min Dana Callow BOATING SAFETY OFFICER.CN P Work Phone: [facility] 03-17-2022 13:33-0500 Respiratory rate 16 /min Dana Callow BOATING SAFETY OFFICER.CN P Work Phone: [facility] 03-17-2022 13:33-0500 SaO2% (BldA) [Mass fraction] 98 % Dana Callow BOATING SAFETY OFFICER.LIFE MANAGEMENT TEACHER Work Phone: [facility] 03-17-2022 13:33-0500 Systolic blood pressure 126 mm[Hg] Dana Callow BOATING SAFETY OFFICER.LIFE MANAGEMENT TEACHER Work Phone: [facility] 02-22-2022 08:26-0500 Diastolic blood pressure 84 mm[Hg] Mari Akhatr BOATING SAFETY OFFICER.LIFE MANAGEMENT TEACHER Work Phone: [facility] 02-22-2022 08:26-0500 Heart rate 63 /min Mari Akhtar BOATING SAFETY OFFICER.LIFE MANAGEMENT TEACHER Work Phone: [facility] 02-22-2022 08:26-0500 Systolic blood pressure 120 mm[Hg] [place] Akhtar BOATING SAFETY OFFICER.LIFE MANAGEMENT TEACHER Work Phone: [facility] 02-22-2022 07:59-0500 Body temperature 97.9 [degF] [place] Akhtar BOATING SAFETY OFFICER.LIFE MANAGEMENT TEACHER Work Phone: [facility] 02-22-2022 07:59-0500 Body weight 85.5 kg Mari Akhtar BOATING SAFETY OFFICER.LIFE MANAGEMENT TEACHER Work Phone: [facility] 02-22-2022 07:59-0500 SaO2% (BldA) [Mass fraction] 99 % Mari Akhtar BOATING SAFETY OFFICER.LIFE MANAGEMENT TEACHER Work Phone: [facility] 02-09-2022 12:05-0400 Body height 174 cm Yaw Singh MD Work Phone: [facility] 02-09-2022 12:05-0400 Body weight 83.01 kg Yaw Singh MD Work Phone: [facility] 02-09-2022 12:05-0400 Diastolic blood pressure 78 mm[Hg] Yaw Singh MD Work Phone: [facility] 02-09-2022 12:05-0400 Heart rate 72 /min Yaw Singh MD Work Phone: [facility] 02-09-2022 12:05-0400 Respiratory rate 16 /min Yaw Singh MD Work Phone: [facility] 02-09-2022 12:05-0400 Systolic blood pressure 122 mm[Hg] Yaw Singh MD Work Phone: [facility] 12-01-2021 09:33-0400 Body temperature 98.8 [degF] Mari Akhtar BOATING SAFETY OFFICER.LIFE MANAGEMENT TEACHER Work Phone: [facility] 12-01-2021 09:33-0400 Body weight 83.92 kg [place] Akhtar BOATING SAFETY OFFICER.LIFE MANAGEMENT TEACHER Work Phone: [facility] 12-01-2021 09:33-0400 Diastolic blood pressure 90 mm[Hg] [place] Akhtar BOATING SAFETY OFFICER.LIFE MANAGEMENT TEACHER Work Phone: [facility] 12-01-2021 09:33-0400 Heart rate 72 /min Mari Akhtar BOATING SAFETY OFFICER.LIFE MANAGEMENT TEACHER Work Phone: [facility] 12-01-2021 09:33-0400 Systolic blood pressure 126 mm[Hg] Mari Akhtar BOATING SAFETY OFFICER.LIFE MANAGEMENT TEACHER Work Phone: [facility] 11-09-2021 12:59-0400 Body height 177.8 cm Season Rosibel BOATING SAFETY OFFICER.LIFE MANAGEMENT TEACHER Work Phone: [facility] 11-09-2021 12:59-0400 Body temperature 97.7 [degF] Season Rosibel BOATING SAFETY OFFICER.LIFE MANAGEMENT TEACHER Work Phone: [facility] 11-09-2021 12:59-0400 Body weight 83.46 kg Season Garfield BOATING SAFETY OFFICER.LIFE MANAGEMENT TEACHER Work Phone: [facility] 11-09-2021 12:59-0400 Diastolic blood pressure 82 mm[Hg] Season Rosibel BOATING SAFETY OFFICER.LIFE MANAGEMENT TEACHER Work Phone: [facility] 11-09-2021 12:59-0400 Heart rate 60 /min Season Garfield BOATING SAFETY OFFICER.LIFE MANAGEMENT TEACHER Work Phone: [facility] 11-09-2021 12:59-0400 Respiratory rate 16 /min Season Garfield BOATING SAFETY OFFICER.LIFE MANAGEMENT TEACHER Work Phone: [facility] 11-09-2021 12:59-0400 SaO2% (BldA) [Mass fraction] 99 % Season Roisbel BOATING SAFETY OFFICER.LIFE MANAGEMENT TEACHER Work Phone: [facility] 11-09-2021 12:59-0400 Systolic blood pressure 135 mm[Hg] Season Rosibel BOATING SAFETY OFFICER.LIFE MANAGEMENT TEACHER Work Phone: [facility] 11-09-2021 12:30-0400 Diastolic blood pressure 82 mm[Hg] Francesca Vazquez MD Work Phone: [facility] 11-09-2021 12:30-0400 Heart rate 63 /min Francesca Vazquez MD Work Phone: [facility] 11-09-2021 12:30-0400 Respiratory rate 16 /min Francesca Vazquez MD Work Phone: [facility] 11-09-2021 12:30-0400 SaO2% (BldA) [Mass fraction] 98 % Francesca Vazquez MD Work Phone: [facility] 11-09-2021 12:30-0400 Systolic blood pressure 130 mm[Hg] Francesca Vazquez MD Work Phone: [facility] 11-09-2021 12:06-0400 Body temperature 97.3 [degF] Francesca Vazquez MD Work Phone: [facility] 11-09-2021 11:36-0400 Body height 177.8 cm Francesca Vazquez MD Work Phone: [facility] 11-09-2021 11:36-0400 Body weight 83.92 kg Francesca Vazquez MD Work Phone: [facility] 11-02-2021 10:35-0400 Body temperature 98.29 [degF] Richard Masci DO Work Phone: [facility] 11-02-2021 10:35-0400 Body weight 84.14 kg Richard Masci DO Work Phone: [facility] 11-02-2021 10:35-0400 Diastolic blood pressure 86 mm[Hg] Richard Masci DO Work Phone: [facility] 11-02-2021 10:35-0400 Heart rate 71 /min Richard Masci DO Work Phone: [facility] 11-02-2021 10:35-0400 SaO2% (BldA) [Mass fraction] 96 % Richard Masci DO Work Phone: [facility] 11-02-2021 10:35-0400 Systolic blood pressure 130 mm[Hg] Richard Masci DO Work Phone: [facility] 10-20-2021 13:35-0400 Body temperature 98.2 [degF] Treatment Wstr Work Phone: [facility] 10-20-2021 13:35-0400 Body weight 83.23 kg Treatment Wstr Work Phone: [facility] 10-20-2021 13:35-0400 Diastolic blood pressure 80 mm[Hg] Treatment Wstr Work Phone: [facility] 10-20-2021 13:35-0400 Heart rate 105 /min Treatment Wstr Work Phone: [facility] 10-20-2021 13:35-0400 Systolic blood pressure 126 mm[Hg] Treatment Wstr Work Phone: [facility] 10-05-2021 09:35-0400 Body height 175.3 cm Richard Masci DO Work Phone: [facility] 10-05-2021 09:35-0400 Body temperature 98.01 [degF] Richard Masci DO Work Phone: [facility] 10-05-2021 09:35-0400 Body weight 82.78 kg Richard Masci DO Work Phone: [facility] 10-05-2021 09:35-0400 Diastolic blood pressure 68 mm[Hg] Richard Masci DO Work Phone: [facility] 10-05-2021 09:35-0400 Heart rate 66 /min Richard Masci DO Work Phone: [facility] 10-05-2021 09:35-0400 SaO2% (BldA) [Mass fraction] 98 % Richard Masci DO Work Phone: [facility] 10-05-2021 09:35-0400 Systolic blood pressure 132 mm[Hg] Richard Masci DO Work Phone: [facility] 09-08-2021 14:01-0400 Body temperature 97.59 [degF] Treatment Wstr Work Phone: [facility] 09-08-2021 14:01-0400 Body weight 81.19 kg Treatment Wstr Work Phone: [facility] 09-08-2021 14:01-0400 Diastolic blood pressure 70 mm[Hg] Treatment Wstr Work Phone: [facility] 09-08-2021 14:01-0400 Heart rate 66 /min Treatment Wstr Work Phone: [facility] 09-08-2021 14:01-0400 Systolic blood pressure 109 mm[Hg] Treatment Wstr Work Phone: [facility] 09-07-2021 14:03-0400 Body height 170.2 cm Season Garfield BOATING SAFETY OFFICER.LIFE MANAGEMENT TEACHER Work Phone: [facility] 09-07-2021 14:03-0400 Body temperature 98.1 [degF] Season Rosibel BOATING SAFETY OFFICER.LIFE MANAGEMENT TEACHER Work Phone: [facility] 09-07-2021 14:03-0400 Body weight 79.29 kg Season Rosibel BOATING SAFETY OFFICER.LIFE MANAGEMENT TEACHER Work Phone: [facility] 09-07-2021 14:03-0400 Diastolic blood pressure 74 mm[Hg] Season Rosibel BOATING SAFETY OFFICER.LIFE MANAGEMENT TEACHER Work Phone: [facility] 09-07-2021 14:03-0400 Heart rate 56 /min Season Rosibel BOATING SAFETY OFFICER.LIFE MANAGEMENT TEACHER Work Phone: [facility] 09-07-2021 14:03-0400 SaO2% (BldA) [Mass fraction] 98 % Season Rosibel BOATING SAFETY OFFICER.LIFE MANAGEMENT TEACHER Work Phone: [facility] 09-07-2021 14:03-0400 Systolic blood pressure 136 mm[Hg] Season Rosibel BOATING SAFETY OFFICER.LIFE MANAGEMENT TEACHER Work Phone: [facility] 09-07-2021 13:35-0400 Diastolic blood pressure 81 mm[Hg] Francesca Vazquez MD Work Phone: [facility] 09-07-2021 13:35-0400 Heart rate 67 /min Francesca Vazquez MD Work Phone: [facility] 09-07-2021 13:35-0400 Respiratory rate 16 /min Francesca Vazquez MD Work Phone: [facility] 09-07-2021 13:35-0400 SaO2% (BldA) [Mass fraction] 97 % Francesca Vazquez MD Work Phone: [facility] 09-07-2021 13:35-0400 Systolic blood pressure 137 mm[Hg] Francesca Vazquez MD Work Phone: [facility] 09-07-2021 13:10-0400 Body temperature 97.7 [degF] Francesca Vazquez MD Work Phone: [facility] 09-07-2021 11:22-0400 Body height 177.8 cm Francesca Vazquez MD Work Phone: [facility] 09-07-2021 11:22-0400 Body weight 81.65 kg Francesca Vazquez MD Work Phone: [facility] 08-25-2021 15:16-0400 Body temperature 97.11 [degF] Treatment Wstr Work Phone: [facility] 08-25-2021 15:16-0400 Diastolic blood pressure 78 mm[Hg] Treatment Wstr Work Phone: [facility] 08-25-2021 15:16-0400 Heart rate 89 /min Treatment Wstr Work Phone: [facility] 08-25-2021 15:16-0400 SaO2% (BldA) [Mass fraction] 99 % Treatment Wstr Work Phone: [facility] 08-25-2021 15:16-0400 Systolic blood pressure 136 mm[Hg] Treatment Wstr Work Phone: [facility] 08-24-2021 08:04-0400 Body temperature 98.01 [degF] Mari Akhtar BOATING SAFETY OFFICER.LIFE MANAGEMENT TEACHER Work Phone: [facility] 08-24-2021 08:04-0400 Body weight 81.87 kg Mari Akhtar BOATING SAFETY OFFICER.LIFE MANAGEMENT TEACHER Work Phone: [facility] 08-24-2021 08:04-0400 Diastolic blood pressure 73 mm[Hg] Mari Akhtar BOATING SAFETY OFFICER.LIFE MANAGEMENT TEACHER Work Phone: [facility] 08-24-2021 08:04-0400 Heart rate 71 /min Mari Solorzanoenter BOATING SAFETY OFFICER.LIFE MANAGEMENT TEACHER Work Phone: [facility] 08-24-2021 08:04-0400 Systolic blood pressure 128 mm[Hg] Mari Solorzanoenter BOATING SAFETY OFFICER.LIFE MANAGEMENT TEACHER Work Phone: [facility] 08-11-2021 14:44-0400 Body temperature 97.7 [degF] Treatment Wstr Work Phone: [facility] 08-11-2021 14:44-0400 Diastolic blood pressure 84 mm[Hg] Treatment Wstr Work Phone: [facility] 08-11-2021 14:44-0400 Heart rate 64 /min Treatment Wstr Work Phone: [facility] 08-11-2021 14:44-0400 Systolic blood pressure 121 mm[Hg] Treatment Wstr Work Phone: [facility] 07-28-2021 15:01-0400 Body temperature 97.5 [degF] Treatment Wstr Work Phone: [facility] 07-28-2021 15:01-0400 Diastolic blood pressure 82 mm[Hg] Treatment Wstr Work Phone: [facility] 07-28-2021 15:01-0400 Heart rate 78 /min Treatment Wstr Work Phone: [facility] 07-28-2021 15:01-0400 Systolic blood pressure 135 mm[Hg] Treatment Wstr Work Phone: [facility] 07-27-2021 08:12-0400 Body temperature 98.2 [degF] Richard Jenkins DO Work Phone: [facility] 07-27-2021 08:12-0400 Body weight 82.78 kg Richard Jenkins DO Work Phone: [facility] 07-27-2021 08:12-0400 Diastolic blood pressure 85 mm[Hg] Richard Jenkins DO Work Phone: [facility] 07-27-2021 08:12-0400 Heart rate 80 /min Richard Jenkins DO Work Phone: [facility] 07-27-2021 08:12-0400 Systolic blood pressure 126 mm[Hg] Richard Jenkins DO Work Phone: [facility] 03-04-2019 12:30-0500 Body Temperature 97.81 [degF] Tyshawn Magallanes [place], [place] 03-04-2019 12:30-0500 BP Diastolic 73 mm[Hg] Tyshawn Carocrist[place]bal [place], [place] 03-04-2019 12:30-0500 BP Systolic 112 mm[Hg] [place] 03-04-2019 12:30-0500 Pulse (Heart Rate) 67 /min [facility] [place] 03-04-2019 12:30-0500 Pulse Oximetry 96 % [place] 03-04-2019 12:30-0500 Respiratory Rate 16 /min [place] 03-04-2019 06:04-0500 BMI (Body Mass Index) 37.49 kg/m2 Tyshawn Carocrist[place]bal [place], [place] 03-04-2019 06:04-0500 Body weight 115.17 kg [place] 03-03-2019 05:38-0500 Height 175.3 cm [place] Encounters Encounter Date Encounter Type Care Provider Facility Start: 03-04-2025 ambulatory Nikita Jackson Facility:[facility] Start: 02-17-2025 End: 02-17-2025 ambulatory YAW SINGH Facility:[facility] Start: 02-04-2025 End: 02-04-2025 ambulatory Yaw Singh Facility:[facility] Start: 01-30-2025 End: 01-30-2025 Emergency department patient visit Fidelina Holman Facility:[facility] Start: 01-23-2025 ambulatory Yaw Singh Facility :[facility] Start: 01-22-2025 ambulatory Nikita Manuel Facility:[facility] Start: 01-22-2025 End: 01-22-2025 ambulatory Yaw Singh Facility:[facility] Start: 01-05-2025 End: 01-05-2025 ambulatory YAW SINGH Facility:[facility] Start: 12-24-2024 End: 12-24-2024 Patient encounter procedure Bobby Pratibha MARKHAMLIFE MANAGEMENT TEACHER Work Phone: [facility] Comment on above: Chronic sinusitis, u nspecified location (Primary Dx); Seasonal allergic rhinitis, unspecified trigger Start: 12-24-2024 End: 12-24-2024 ambulatory YAW SINGH Facility:[facility] Start: 12-22-2024 End: 12-22-2024 Refill Yaw Singh MD Work Phone: [facility] [place] Comment on above: Refill Request Start: 12-18-2024 End: 12-24-2024 Telephone encounter Richard Jenkins DO Work Phone: Hematology/Oncology Comment on above: Appointment Start: 12-03-2024 End: 12-03-[address] Yaw Singh MD Work Phone: -MRI - [facility] Start: 12-03-2024 End: 12-03-2024 Patient encounter procedure Connie SOSA -MRI - [facility] Work Phone: Start: 12-03-2024 End: 12-03-2024 ambulatory Connie Ibarra Facility:[facility] Start: 11-26-2024 End: 11-26-[address] Yaw Singh MD Work Phone: -Outpatient Bone Densitometry Start: 11-26-2024 End: 11-26-2024 Patient encounter procedure Connie Ibarra PA -Outpatient Bone Densitometry Work Phone: Start: 11-26-2024 End: 11-26-2024 ambulatory Connie Ibarra Facility:[facility] Start: 11-14-2024 End: 11-14-[address] Haroldo Noland MD -[facility] Start: 11-14-2024 End: 11-14-[address] Yaw Singh MD Work Phone: -[facility] Start: 11-07-2024 End: 11-11-2024 Telephone encounter [...] 11-05-2024 End: 11-05-2024 ambulatory Edith West MA [facility] [place] Start: 11-05-2024 End: 11-05-2024 Patient encounter procedure [facility] [place] Comment on above: Population Health Na vigation Outreach ([facility] ) Start: 10-31-2024 ambulatory YAW SINGH Facili ty:[facility] Start: 10-31-2024 End: 10-31-2024 Subsequent hospital visit by physician [facility] (I-Stat) Work Phone: Cat Scan Comment on above: 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 Nikita nicholas MD -[facility] Start: 10-15-2024 End: 10-15-2024 Admission to same day surgery center Dr. Nikita Jackson MD -[facility] Work Phone: Start: 10-15-2024 End: 10-15-[address] Yaw Singh MD Work Phone: -[facility] Start: 10-08-2024 End: 10-14-2024 Follow-up encounter Usha Mcgovern PA-C Work Phone: [facility] [place] Comment on above: Results Start: 10-07-2024 End: 10-07-2024 Subsequent hospital visit by physician Xr [facility] [place] Work Phone: Radiology Comment on above: Lumbar back pain [M5 4.50] Start: 10-07-2024 End: 10-07-2024 Office outpatient visit 25 minutes Usha Mcgovern PA-C Work Phone: [facility] Comment on above: Essential hypertensi on, benign (Primary Dx); Mixed hyperlipidemia; Coronary 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 pectoris; Esophageal adenocarcinoma (HCC); Malignant neoplasm of lower third of esophagus (HCC); CKD (chronic kidney disease) stage 4, GFR 15-29 ml/min ([facility]); 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; Benign prostatic [...] (HCC) Start: 10-07-2024 End: 10-07-2024 ambulatory YAW SNIGH Facility:[facility] Start: 09-26-2024 End: 09-26-2024 Telephone encounter Yaw Singh MD Work Phone: [facility] [place] Comment on above: Orders Start: 09-22-2024 End: 09-22-2024 Patient encounter procedure Yaw Singh MD Work Phone: [facility] [place] Comment on above: History of cerebral infarction (Primary Dx); Gynecomastia Start: 09-22-2024 End: 09-22-2024 ambulatory YAW SINGH Facility:[facility] Start: 09-18-2024 End: 09-18-2024 Chart abstracting Yaw Singh MD Work Phone: [facility] [place] Comment on above: ER Discharge Summary Start: 09-17-2024 End: 09-17-2024 Emergency department patient visit Dr. Yaw Singh MD Work Phone: -Emergency Department Work Phone: Start: 09-12-2024 End: 09-12-2024 Office outpatient visit 25 minutes Yaw Smith APRN.CNP Work Phone: [facility] Comment on above: Skin tear of left fo rearm without complication, initial encounter (Primary Dx) Start: 09-12-2024 End: 09-12-2024 ambulatory YAW SINGH Facility:[facility] Start: 09-09-2024 End: 09-09-2024 Follow-up encounter Stacia Adame MD Work Phone: [facility] Comment on above: Results (MRI without contrast) Start: 09-09-2024 End: 09-09-2024 Refill Richard Jenkins DO Work Phone: Hematology/Oncology Comment on above: Refill Request Start: 09-08-2024 End: 09-08-2024 Refill Yaw Singh MD Work Phone: [facility] [place] Comment on above: Refill Request Hyperprolactinemia ( HCC) [E22.1] Start: 09-04-2024 End: 09-05-2024 Follow-up encounter Yaw Singh MD Work Phone: [facility] [place] Start: 09-02-2024 End: 09-02-2024 Patient encounter procedure Maggie SOSA -[facility] Work Phone: Start: 09-02-2024 End: 09-02-2024 Refill Richard Dickson Masci DO Work Phone: Hematology/Oncology Comment on above: Refill Request Start: 08-27-2024 ambulatory YAW Joshii ty:[facility] Start: 08-20-2024 End: 08-20-2024 Subsequent hospital visit by physician Xr [facility] [place] Work Phone: Radiology Comment on above: Acute bilateral low back pain without sciatica [M54.50] Start: 08-20-2024 End: 08-20-2024 Office outpatient visit 25 minutes Steve Youssef PA-C Work Phone: [facility] Comment on above: Acute bilateral low back pain without sciatica (Primary Dx) Start: 08-20-2024 End: 08-20-2024 ambulatory STEVE YOUSSEF Facility:[facility] Start: 08-19-2024 End: 08-19-2024 ambulatory Josue Oquendo RN [employer] Comment on above: Bi-Weekly Outreach ( Recurring) for Chronic Disease Management Start: 08-11-2024 End: 08-11-2024 Refill Richard Mendezi DO Work Phone: Hematology/Oncology Comment on above: Refill Request Start: 08-05-2024 End: 08-05-2024 Patient encounter procedure Marcela SOSA Work Phone: [facility] Comment on above: Dog scratch (Primary Dx); Visit for wound check Start: 08-05-2024 End: 08-05-2024 ambulatory Josue Oquendo RN [employer] Comment on above: Bi-Weekly Outreach ( Recurring) for Chronic Disease Management Start: 08-01-2024 End: 09-01-2024 ambulatory Josue Oquendo RN [employer] Comment on above: Bi-Weekly Outreach ( Recurring) for Chronic Disease Management Start: 07-29-2024 End: 07-29-2024 Chart abstracting Alberta Candelaria MA [facility] [place] [facility] Comment on above: Consult (General Winifred jewell - F/U AVF ) Start: 07-22-2024 End: 07-22-2024 Patient encounter procedure Maggie SOSA -[facility] Work Phone: Start: 07-22-2024 End: 07-22-2024 ambulatory Yaw Singh Facility:[facility] Start: 07-21-2024 Encounter for other preprocedural examination Nikita Jackson [facility] Start: 07-16-2024 ambulatory Yaw Singh Facility :[facility] Start: 07-11-2024 End: 07-11-2024 Follow-up encounter Stacia Adame MD Work Phone: [facility] Start: 07-11-2024 End: 09-08-2024 Telephone encounter Stacia Adame MD Work Phone: [facility] Comment on above: Results Start: 07-10-2024 End: 07-10-2024 Refill Richard Jenkins DO Work Phone: Hematology/Oncology Comment on above: Refill Request Start: 07-04-2024 End: 07-04-2024 Chart abstracting Alberta Candelaria MA [facility] [place] [facility] Comment on above: Consult (Outside con sults /) Start: 06-30-2024 End: 06-30-2024 ambulatory YAW SINGH Facility:[facility] Start: 06-30-2024 End: 06-30-2024 Patient encounter procedure Yaw Singh MD Work Phone: [facility] Comment on above: Gynecomastia (Primar y Dx); Subareolar mass of right breast; Esophageal adenocarcinoma (HCC); Pain, unspecified; 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 Nikita nicholas MD -[facility] Start: 06-30-2024 End: 06-30-2024 Admission to same day surgery center Dr. Nikita Jackson MD -[facility] Start: 06-30-2024 End: 06-30-[address] Yaw Singh MD Work Phone: [facility] Work Phone: Start: 06-20-2024 End: 06-20-2024 Telephone encounter Hill Harman HUNTER Work Phone: [facility] Comment on above: Follow Up (Psychosoc ial Eval) Start: 06-19-2024 Encounter for other preprocedural examination Nikita Jackson [facility] Start: 06-11-2024 Encounter for other preprocedural examination YAW SINGH [facility] Start: 06-11-2024 End: 06-11-2024 ambulatory MAULIK GADIEL Facility:[facility] Start: 06-11-2024 End: 06-11-2024 Preprocedural examination done Grabiel Ruff MD Work Phone: [facility] Start: 06-11-2024 End: 06-11-2024 ambulatory MAULIK ARANDA Facility:[facility] Start: 06-11-2024 End: 06-11-2024 [...] encounter status Kidney Txp Coordinators Work Phone: [facility] Start: 06-11-2024 End: 06-11-2024 ambulatory MARIA VICTORIA SCOTT Facility:[facility] Start: 06-11-2024 Encounter for other preprocedural examination YAW SINGH [facility] Start: 06-09-2024 End: 06-09-2024 Chart abstracting Alberta Candelaria MA [facility] Comment on above: Results (Outside lab s /) Start: 06-06-2024 End: 06-06-2024 Chart abstracting Yaw Singh MD Work Phone: [facility] Comment on above: Outside [id number] Ordered Pre-transplant evalu ation for kidney transplant (Primary Dx) Start: 06-06-2024 End: 06-06-2024 Patient encounter status Maulik Aranda MD Work Phone: [facility] Start: 06-06-2024 End: 06-06-2024 Telephone encounter Nisha Schultz RN [facility] Comment on above: Referral - Kidney Tx p Start: 06-06-2024 End: 06-06-[address] Yaw Singh MD Work Phone: [facility] Work Phone: Start: 06-06-2024 End: 06-06-[address] Nikita Jackson MD -Laboratory Work Phone: Start: 06-06-2024 End: 06-06-2024 ambulatory Nikita Jackson Facility:[facility] Start: 05-27-2024 End: 05-27-2024 Patient encounter status Kidney Txp Coordinators Work Phone: [facility] Start: 05-27-2024 End: 05-27-2024 Telephone encounter Kidney Txp Coordinators Work Phone: [facility] Comment on above: Referral - Kidney Tx p Start: 05-07-2024 End: 05-07-2024 Subsequent hospital visit by physician Mri Radio [facility] (I-Stat/1.5t) Work Phone: Radiology Comment on above: 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] Start: 05-07-2024 End: 05-08-2024 Telephone encounter Richard Jenkins DO Work Phone: Hematology/Oncology Comment on above: Results Start: 05-07-2024 End: 05-07-2024 ambulatory YAW SINGH Facility:[facility] Start: 05-07-2024 End: 05-07-2024 Patient encounter procedure Edwin Montes APRN.CNP Work Phone: [facility] Comment on above: Secondary infection [...] [facility] [place] Comment on above: Outside Cardiology Start: 04-29-2024 End: 04-29-2024 Patient encounter procedure Vern SOSA -[facility] Work Phone: Start: 04-29-2024 End: 04-29-2024 ambulatory Yaw Singh Facility:[facility] Start: 04-28-2024 End: 04-28-[address] Nikita Jackson MD -[facility] Work Phone: Start: 04-28-2024 End: 04-28-2024 ambulatory Gaudencio Greenberg Facility:[facility] Start: 04-25-2024 End: 04-25-2024 Chart abstracting Yaw Singh MD Work Phone: [facility] Comment on above: Outside Imaging Start: 04-24-2024 ambulatory Yaw Singh Facility :[facility] Start: 04-24-2024 Non-patient / Non-visit Dr. Nikita nicholas MD -[facility] Start: 04-24-2024 End: 04-24-[address] 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] Start: 03-11-2024 End: 03-11-2024 ambulatory YAW SINGH Facility:[facility] Start: 03-11-2024 End: 03-11-2024 Patient encounter procedure Yaw Singh MD Work Phone: [facility] Comment on above: Medicare annual well ness visit, subsequent (Primary Dx); Essential hypertension, benign; Mixed hyperlipidemia; Coronary 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 pectoris; Aortic valve stenosis, [...] Home visit Yaw Singh MD Work Phone: [facility] Comment on above: Closed intracapsular fracture of left femur with routine healing (Primary Dx) Start: 02-15-2024 End: 02-15-2024 Chart abstracting Yaw Singh MD Work Phone: [facility] Comment on above: ER Discharge Summary (H&P) Start: 02-15-2024 ambulatory [facility] Facility:[facility] Start: 02-15-[address] Elliot Singh MD Work Phone: [facility] Start: 02-04-2024 End: 02-04-2024 Telephone encounter Zachary Berkowitz BOATING SAFETY OFFICER.LIFE MANAGEMENT TEACHER Work Phone: Pulmonary Medicine Start: 01-31-2024 ambulatory ZACHARY SEABO Facility :[facility] Start: 01-31-2024 End: 01-31-2024 Subsequent hospital visit by physician Xr [facility] Comment on above: Pleural effusion [J9 0] Start: 01-31-2024 End: 01-31-2024 Patient encounter procedure Zachary Berkowitz BOATING SAFETY OFFICER.LIFE MANAGEMENT TEACHER Work Phone: Pulmonary Medicine Comment on above: Pleural effusion (Pr imary Dx); Lung nodules; Seasonal allergies; Oral thrush Start: 01-28-2024 End: 01-29-2024 Telephone encounter Richard Jenkins DO Work Phone: Hematology/Oncology Comment on above: Results Start: 01-24-2024 ambulatory RICHARD JENKINS Facility:[facility] Start: 01-24-2024 End: 01-24-2024 Subsequent hospital [...] Yaw Singh MD Work Phone: [facility] [place] Comment on above: Healing pressure inj ury, [...] Yaw Singh MD Work Phone: [facility] [place] Comment on above: update on patient Start: 01-06-2024 End: 01-06-2024 Home visit Yaw Singh MD Work Phone: [facility] [place] Comment on above: Heart failure, unspe cified HF chronicity, unspecified heart failure type (HCC) (Primary Dx) Start: 01-06-2024 End: 01-14-2024 Telephone encounter Yaw Singh MD Work Phone: [facility] [place] Comment on above: Results Start: 01-03-2024 End: 01-03-2024 Patient encounter procedure Yaw Singh MD Work Phone: [facility] [place] Comment on above: Pressure injury of b uttock, stage 2, unspecified laterality (HCC) (Primary Dx); CKD (chronic kidney disease) stage 4, GFR 15-29 ml/min (HCC); Iron deficiency anemia due to chronic blood loss; 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 Start: 01-02-2024 End: 01-08-2024 Telephone encounter Alberta Candelaria MA [facility] Comment on above: Patient Update Start: 01-01-2024 End: 01-01-2024 Telephone encounter Yaw Singh MD Work Phone: [facility] [place] Comment on above: Patient Update; from home health Start: 12-31-2023 End: 12-31-2023 Telephone encounter Yaw Singh MD Work Phone: [facility] [place] Comment on above: Orders Start: 12-28-2023 End: 12-28-2023 Telephone encounter Yaw Singh MD Work Phone: [facility] [place] Comment on above: Home Health Orders Start: 12-25-2023 End: 12-25-2023 Chart abstracting Yaw Singh MD Work Phone: [facility] [place] Comment on above: Outside EGD Start: 11-15-2023 Chart abstracting Yaw hernandez MD Work Phone: [facility] [place] Comment on above: Outside H&P (Outside Nephrology/) Start: 11-07-2023 Chart abstracting Alberta Candelaria MA [facility] [place] Comment on above: Hospital Admission ( [facility] ) Start: 11-05-2023 Chart abstracting Yaw hernandez MD Work Phone: [facility] [place] Comment on above: Outside EGD Hospital F/U ([facility] ) Start: 11-02-2023 Chart abstracting Alberta Candelaria MA [facility] [place] Comment on above: Hospital F/U ([facility] ) Start: 10-31-2023 Chart abstracting Alberta Candelaria MA [facility] [place] Comment on above: Consult (External co nsult Pulmonary - [facility] admitted ) Start: 10-29-2023 Chart abstracting Alberta Candelaria MA [facility] [place] Comment on above: Hospital F/U ([facility] ) Start: 10-23-2023 Telephone encounter Richard pace DO Work Phone: Hematology/Oncology Comment on above: Results Start: 10-09-2023 End: 10-09-2023 Patient encounter procedure Helen Blair MD Work Phone: Pulmonary Medicine Comment on above: Pleural effusion (Pr imary Dx); Chronic heart failure with preserved ejection fraction (HCC) Start: 10-08-2023 Telephone encounter Helen ann MD Work Phone: [facility] Comment on above: Patient Question Results Start: 10-05-2023 End: 10-05-2023 Patient encounter procedure Yaw Singh MD Work Phone: [facility] [place] Comment on above: Essential hypertensi on, benign (Primary Dx); Mixed hyperlipidemia; Gastroesophageal reflux disease, unspecified whether esophagitis present; Coronary 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 pectoris; Ascending aorta dilation (HCC); Iron deficiency anemia due to chronic blood loss; Uncomplicated asthma, unspecified asthma severity, unspecified whether persistent; Malignant neoplasm of lower third of esophagus (HCC); Esophageal adenocarcinoma (HCC); Pleural effusion; Primary insomnia; Microscopic hematuria; Medication management Start: 09-21-2023 Telephone encounter Usha white PA-C Work Phone: [facility] [place] Comment on above: Results Start: 09-17-2023 Telephone encounter Richard pace DO Work Phone: Hematology/Oncology Comment on above: Biopsy Request (Bone Biopsy) Results Start: 09-14-2023 Telephone encounter Usha white PA-C Work Phone: [facility] [place] Comment on above: Results Start: 09-13-2023 End: 09-13-2023 Subsequent hospital visit by physician Maddie [facility] [place] Work Phone: Radiology Comment on above: Pleural effusion [J9 0] Start: 09-13-2023 End: 09-13-2023 Patient encounter procedure Usha Mcgovern PA-C Work Phone: [facility] [place] Comment on above: Pleural effusion (Pr imary Dx); Nephrolithiasis; TRIPATHI (dyspnea on exertion); Coronary 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 pectoris; Essential hypertension, benign Start: 09-12-2023 Telephone encounter Alberta Candelaria MA [facility] [place] Comment on above: Patient Update Start: 09-10-2023 End: 09-10-2023 Subsequent hospital visit by physician Mri Radio [facility] (I-Stat/1.5t) Work Phone: Radiology Comment [...] 08-03-2023 Subsequent hospital visit by physician Ct Prep [facility] Cat Scan Comment on above: 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] Start: 08-01-2023 Orders Only Richard Chen Work Phone: Hematology/Oncology Comment on above: Malignant [...] Jesus Manuel Resendiz PA-C Work Phone: [facility] [place] Comment on above: Strain of thoracic p araspinal muscles excluding T1 and T2 levels, sequela (Primary Dx); Closed wedge compression fracture of T10 vertebra with routine healing, subsequent encounter; Malignant 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); Kyphosis (acquired) (postural) Start: 07-02-2023 Telephone encounter Usha white PA-C Work Phone: [facility] [place] Comment on above: Results Start: 06-28-2023 Telephone encounter Yaw Singh MD Work Phone: [facility] [place] Comment on above: Results Start: 06-28-2023 End: 06-28-2023 Subsequent hospital visit by physician [facility] Work Phone: Nuclear Medicine Comment on above: RUQ pain [R10.11] Start: 06-19-2023 Telephone encounter Yaw Singh MD Work Phone: [facility] [place] Comment on above: Results Start: 06-19-2023 End: 06-19-2023 Patient encounter procedure Usha Mcgovern PA-C Work Phone: [facility] [place] Comment on above: RUQ pain (Primary Dx ); Nausea; Chronic midline low back pain without sciatica; Intertrigo Start: 06-15-2023 Telephone encounter Richard pace DO Work Phone: Hematology/Oncology Comment on above: Patient Question Start: 06-05-2023 Encounter for other preprocedural examination AMOS RANGEL [facility] Start: 06-05-2023 ambulatory AMOS RANGEL Facility :[facility] Start: 06-05-2023 End: 06-05-2023 Preprocedural examination done Amos Rangel MD Work Phone: [facility] Start: 06-05-2023 End: 06-05-2023 Subsequent hospital visit by physician Amos Rangel MD Work Phone: [facility] Comment on above: Malignant neoplasm o f esophagus, unspecified location (HCC) [C15.9] Start: 05-29-2023 Refill Richard Chen Work Phone: Hematology/Oncology Comment on above: Refill Request Start: 05-28-2023 Orders Only Amos Rangel MD Work Phone: [facility] Comment on above: Malignant neoplasm o f esophagus, unspecified location (HCC) (Primary Dx) Start: 05-07-2023 ambulatory JURGEN BOCANEGRA Facil ity:[facility] Start: 04-25-2023 End: 04-25-2023 ambulatory JURGEN BOCANEGRA Facility:[facility] Start: 04-10-2023 ambulatory RICHARD JENKINS Facility:[facility] Start: 03-30-2023 Patient encounter procedure Amos Rangel MD Work Phone: [facility] Work Phone: Start: 03-29-2023 Telephone encounter Richard pace DO Work Phone: Hematology/Oncology Comment on above: Results (MRI thoraci c spine) Start: 02-27-2023 End: 02-27-2023 Patient encounter procedure Jessica Olvera APRN.LIFE MANAGEMENT TEACHER Work Phone: [facility] Comment on above: Rhinosinusitis (Prim ursula Dx) Start: 02-21-2023 Telephone encounter Richard pace DO Work Phone: Hematology/Oncology Comment on above: Results; Follow Up Start: 02-19-2023 End: 02-19-2023 Patient encounter procedure Ywa Singh MD Work Phone: [facility] [place] Comment on above: APPOINTMENT CANCELLE D (Primary Dx) Start: 02-13-2023 End: 02-13-2023 Subsequent hospital visit by physician Ct [facility] (I-Stat) Work Phone: Cat Scan Comment on above: 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] Start: 02-12-2023 Orders Only Richard Yoder O Work Phone: Hematology/Oncology Comment on above: 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) Start: 11-22-2022 Chart abstracting Yaw hernandez MD Work Phone: [facility] Comment on above: Consult Start: 11-15-2022 End: 11-15-2022 ambulatory [facility] Work Phone: Start: 11-15-2022 End: 11-15-2022 Patient encounter procedure [facility] Work Phone: Start: 08-22-2022 End: 08-22-2022 ambulatory Ricahrd Jenkins DO Work Phone: Hematology/Oncology Comment on above: 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) Start: 08-22-2022 End: 08-22-2022 Patient encounter procedure Richard Jenkins DO Work Phone: [facility] Start: 08-09-2022 End: 08-09-2022 Patient encounter procedure Usha Mcgovern PA-C Work Phone: [facility] Comment on above: Essential hypertensi on, benign (Primary Dx); Mixed hyperlipidemia; Gastroesophageal reflux disease, unspecified whether esophagitis present; Esophageal adenocarcinoma (HCC); Coronary 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 pectoris; S/P CABG x 4; Malignant 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 Yaw Singh Work Phone: [facility] Work Phone: Start: 07-24-2022 End: 07-24-[address] Yaw Singh Work Phone: [facility] Start: 06-26-2022 Chart abstracting Yaw hernandez MD Work Phone: [facility] Comment on above: ER and Imaging Start: 06-26-2022 Telephone encounter Yaw Singh MD Work Phone: [facility] Comment on above: Patient Question Start: 06-23-2022 End: 06-23-2022 Emergency department patient visit Dr. Yaw Singh Work Phone: [facility] Start: 06-16-2022 Telephone encounter Yaw Singh MD Work Phone: NOC Comment on above: Appointment Start: 06-09-2022 End: 06-09-2022 Subsequent hospital visit by physician Xr [facility] Work Phone: Radiology Comment on above: Rib injury [S29.9XXA ] Start: 06-09-2022 End: 06-09-2022 Office outpatient visit 15 minutes Yaw Smith BOATING SAFETY OFFICER.LIFE MANAGEMENT TEACHER Work Phone: [facility] Comment on above: Rib injury (Primary Dx) Start: 05-29-2022 Telephone encounter Mari gill BOATING SAFETY OFFICER.LIFE MANAGEMENT TEACHER Work Phone: Hematology/Oncology Comment on above: Future Appointment Start: 05-25-2022 End: 05-25-2022 ambulatory Mari Akhtar BOATING SAFETY OFFICER.LIFE MANAGEMENT TEACHER Work Phone: Hematology/Oncology Comment on above: 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) Start: 05-25-2022 End: 05-25-2022 Patient encounter procedure Mari Akhtar BOATING SAFETY OFFICER.LIFE MANAGEMENT TEACHER Work Phone: [facility] Start: 05-22-2022 End: 05-22-2022 Subsequent hospital visit by physician Ct [facility] (I-Stat) Work Phone: Cat Scan Comment on above: 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 Yaw Singh Work Phone: [facility] Start: 04-20-2022 ambulatory Yaw leonardo MD Work Phone: [facility] Comment on above: Hematuria Start: 03-19-2022 Telephone encounter Yaw Singh MD Work Phone: [facility] Comment on above: Results Start: 03-18-2022 Telephone encounter Edith Hanksbakari Rivas BOATING SAFETY OFFICER.LIFE MANAGEMENT TEACHER Work Phone: [facility] Comment on above: Results Start: 03-17-2022 End: 03-17-2022 Patient encounter procedure Dana Humphries APRN.LIFE MANAGEMENT TEACHER Work Phone: [facility] Comment on above: Sinus congestion (Pr imary Dx); Acute cough Start: 02-22-2022 End: 02-22-2022 ambulatory Mari Akhtar APRN.LIFE MANAGEMENT TEACHER Work Phone: Hematology/Oncology Comment on above: 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) Start: 02-22-2022 End: 02-22-2022 Patient encounter procedure Mari Akhtar APRN.LIFE MANAGEMENT TEACHER Work Phone: [facility] Start: 02-21-2022 Telephone encounter Yaw Singh MD Work Phone: [facility] Comment on above: Results Start: 02-20-2022 End: 02-20-2022 Subsequent hospital visit by physician Ct [facility] (I-Stat) Work Phone: Cat Scan Comment on above: 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] Start: 02-09-2022 End: 02-09-2022 Patient encounter procedure Yaw Singh MD Work Phone: [facility] Comment on above: Medicare annual well ness visit, subsequent (Primary Dx); Essential hypertension, benign; Mixed hyperlipidemia; Gastroesophageal reflux disease, unspecified whether esophagitis present; Iron deficiency anemia due to chronic blood loss; Coronary 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 pectoris; Aortic valve stenosis, etiology of cardiac valve disease unspecified; Uncomplicated asthma, unspecified asthma severity, unspecified whether persistent; Situational depression; Esophageal adenocarcinoma (HCC); Malignant neoplasm of lower third of esophagus (HCC); Pleural effusion; Balanitis; Advance directive discussed with patient; Medication management; Prostate disorder; Decreased sexual desire; Encounter for immunization Start: 12-01-2021 End: 12-01-2021 ambulatory Mari Akhtar APRN.LIFE MANAGEMENT TEACHER Work Phone: Hematology/Oncology Comment on above: 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) Start: 12-01-2021 End: 12-01-2021 Patient encounter procedure Mari Akhtar APRN.LIFE MANAGEMENT TEACHER Work Phone: [facility] Start: 11-16-2021 Telephone encounter Richard pace DO Work Phone: Hematology/Oncology Comment on above: Patient Question Start: 11-09-2021 End: 11-09-2021 Patient encounter procedure Queta Gleason APRN.LIFE MANAGEMENT TEACHER Work Phone: [facility] Comment on above: [...] encounter procedure Richard Jenkins DO Work Phone: [facility] Start: 10-20-2021 End: 10-20-2021 ambulatory Treatment 12 [facility] Work Phone: Hematology/Oncology Comment on above: Esophageal adenocarc inoma (HCC) (Primary Dx); Malignant neoplasm of lower third of esophagus (HCC) Start: 10-05-2021 End: 10-05-2021 ambulatory Richard Jenkins DO Work Phone: Hematology/Oncology Comment on above: 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); Pleural effusion Start: 10-05-2021 End: 10-05-2021 Patient encounter procedure Richard Jenkins DO Work Phone: [facility] [place] Start: 10-03-2021 End: 10-03-2021 Subsequent hospital visit by physician Dina [facility] (I-Stat) Work Phone: Cat Scan [...] T4) Start: 09-08-2021 End: 09-08-2021 ambulatory Treatment [address] [facility] Work Phone: Hematology/Oncology Comment on above: [...] 08-25-2021 End: 08-25-2021 ambulatory Treatment Rm 11 [facility] Work Phone: Hematology/Oncology Comment on above: Esophageal adenocarc inoma (HCC) (Primary Dx); Malignant neoplasm of lower third of esophagus (HCC) Start: 08-24-2021 End: 08-24-2021 ambulatory Mari Solorzanoenter BOATING SAFETY OFFICER.LIFE MANAGEMENT TEACHER Work Phone: Hematology/Oncology Comment on above: Esophageal adenocarc inoma (HCC) (Primary Dx) Start: 08-24-2021 End: 08-24-2021 Patient encounter procedure Mari Solorzanoenter BOATING SAFETY OFFICER.LIFE MANAGEMENT TEACHER Work Phone: [facility] [place] Start: 08-11-2021 End: 08-11-2021 ambulatory Treatment Rm 11 [facility] Work Phone: Hematology/Oncology Comment on above: Esophageal adenocarc inoma (HCC) (Primary Dx); Malignant 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) Start: 08-04-2021 Orders Only Renetta Dubon nd, MD Work Phone: [facility] Comment on above: 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) Start: 07-28-2021 End: 07-28-2021 ambulatory Treatment Rm 10 [facility] Work Phone: Hematology/Oncology Comment on above: Esophageal adenocarc inoma (HCC) (Primary Dx); Malignant 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) Start: 07-28-2021 Telephone encounter Usha white PA-C Work Phone: [facility] Comment on above: Results Start: 07-27-2021 End: 07-27-2021 ambulatory Richard Jenkins DO Work Phone: Hematology/Oncology Comment on above: Esophageal adenocarc inoma (HCC) (Primary Dx); Iron deficiency anemia due to chronic blood loss; LEELA (acute kidney injury) (HCC); Other hypervolemia Start: 07-27-2021 End: 07-27-2021 Patient encounter procedure Richard Jenkins DO Work Phone: [facility] Start: 01-13-2021 Patient encounter procedure Richard Jenkins DO Work Phone: [facility] Work Phone: Start: 03-03-2020 End: 03-03-2020 Subsequent hospital visit by physician 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 Work Phone: [facility] [address] Comment on above: S/P TAVR (transcathe ter aortic valve replacement); Aortic valve stenosis, etiology of cardiac valve disease unspecified Start: 04-16-2019 End: 04-16-2019 Subsequent hospital visit by physician 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 BOATING SAFETY OFFICER - LIFE MANAGEMENT TEACHER Work Phone: [facility] [address] Comment on above: Aortic valve stenosi s, etiology of cardiac valve disease unspecified Start: 04-16-2019 End: 04-16-2019 Subsequent hospital visit by physician 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 BOATING SAFETY OFFICER - LIFE MANAGEMENT TEACHER Work Phone: [facility] [address] Comment on above: Severe aortic stenos is; Coronary 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 pectoris; Essential hypertension; Obesity (BMI 30.0-34.9) Start: 03-03-2019 End: 03-04-2019 Evaluation and management of inpatient Tyshawn Magallanes Work Phone: [facility] Comment on above: Arrived Start: 02-21-2019 End: 02-21-2019 Subsequent hospital visit by physician Krys Toscano Work Phone: [facility] [address] Comment on above: Nonrheumatic aortic valve stenosis Start: 02-21-2019 End: 02-21-2019 Subsequent hospital visit by physician Tyshawn Magallanes Work Phone: [facility] Comment on above: Nonrheumatic aortic valve stenosis Start: 02-18-2019 End: 02-18-2019 Subsequent hospital visit by physician Tyshawn Magallanes Work Phone: [facility] [address] Comment on above: Nonrheumatic aortic valve stenosis Start: 11-24-2017 Patient encounter Reynold morales:[facility] Start: 07-20-2017 End: 07-20-2017 Emergency department patient visit KATHI [facility] Procedures Date Procedure Procedure Detail Performing Clinician Start: 12-03-2024 MRI of lumbar spine Dr. Yaw Singh MD Work Phone: Start: 11-26-2024 Dual energy X-ray absorptiometry Dr. Zurdo Singh MD Work Phone: Start: 11-14-2024 X-ray of lumbar spine, two or three views Dr. Yaw Singh MD Work Phone: Start: 10-07-2024 Lipid 1996 panel - Serum or Plasma Xr Wo rosalia Work Phone: Start: 09-08-2024 Mri brain brain stem w/o contrast material Stacia Adame MD Work Phone: Start: 08-20-2024 Radex spine lumbosacral 2/3 views Steve yip PA-C Work Phone: Start: 06-30-2024 Creation of lower limb arteriovenous fistula Dr. Yaw Singh MD Work Phone: Start: 06-11-2024 Antibody screen YAW SINGH Comment on above: Order Comment: Specimen Type: BLOOD SPEC IMENOrdering Facility: [facility] Address: [address] [place] [address] Performed By: #### T SCR ####CC MAIN BLOOD BANKCLIA [id number] [place] [address] [place] Start: 05-07-2024 Mri spinal canal thoracic w/o & w/contr matrl Richard Jenkins DO Work Phone: Start: 04-17-2024 Lipid 1995 panel - Serum or Plasma Ct (I -Stat) Work Phone: Start: 01-24-2024 Radiologic small intestine follow-through study Richard Jenkins DO Work Phone: Start: 01-24-2024 XR UPPER GI SINGLE CONTRAST Richard Jenkins DO Work Phone: Start: 10-05-2023 Lipid 1996 panel - Serum or Plasma Jeffbereket ey Samantha MD Work Phone: Start: 09-13-2023 Radiologic exam chest 2 views Usha white PA-C Work Phone: Start: 09-10-2023 Mri spinal canal thoracic w/o & w/contr matrl Richard Dickson Masci DO Work Phone: Start: 06-28-2023 Hepatobil syst imag inc gb w/pharma intervenj Usah Mcgovern PA-C Work Phone: Start: 06-19-2023 Lipid 1996 panel - Serum or Plasma Fuad Singh MD Work Phone: Start: 06-05-2023 Esophagoscp rig transoral hypopharynx crv winston Rangel MD Work Phone: Start: 08-02-2022 Esophagogastroduodenoscopy transoral diagnostic Queta Hunt BOATING SAFETY OFFICER.LIFE MANAGEMENT TEACHER Work Phone: Start: 07-24-2022 Diagnostic radiography of abdomen Dr. Neal Singh Work Phone: Start: 06-23-2022 Computed tomography of abdomen and pelvis with contrast Dr. Yaw Singh Work Phone: Start: 06-09-2022 Radex ribs uni w/posteroant ch minimum 3 views Yaw Smith BOATING SAFETY OFFICER.LIFE MANAGEMENT TEACHER Work Phone: Start: 05-22-2022 Ct abdomen & pelvis w/contrast material Mari Akhtar BOATING SAFETY OFFICER.LIFE MANAGEMENT TEACHER Work Phone: Start: 05-22-2022 Ct thorax w/contrast material Mari gill BOATING SAFETY OFFICER.LIFE MANAGEMENT TEACHER Work Phone: Start: 02-20-2022 Ct abdomen & pelvis w/contrast material Richard Jenkins DO Work Phone: Start: 02-20-2022 Ct thorax w/contrast material Richard Dickson Mas ci DO Work Phone: Start: 02-20-2022 Lipid 1996 panel - Serum or Plasma Ct (I -Stat) Work Phone: Start: 02-09-2022 INFLUENZA SEASONAL QUADRIVALENT HIGH DOSE AGE 65+ Yaw Singh MD Work Phone: Start: 11-09-2021 Esophagogastroduodenoscopy transoral diagnostic Rosibel BOATING SAFETY OFFICER.LIFE MANAGEMENT TEACHER Work Phone: Start: 10-03-2021 Ct abdomen & pelvis w/contrast material Mari Akhtar BOATING SAFETY OFFICER.LIFE MANAGEMENT TEACHER Work Phone: Start: 10-03-2021 Ct thorax w/contrast material Mari Carp enter BOATING SAFETY OFFICER.LIFE MANAGEMENT TEACHER Work Phone: Start: 09-07-2021 Esophagogastroduodenoscopy transoral diagnostic Renetta Radford MD Work Phone: Start: 06-01-2020 Colonoscopy Richard Jenkins DO Work Phone: Start: 03-03-2020 Echo tthrc r-t 2d w/wom-mode compl spec&colr d 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 Work Phone: Start: 04-16-2019 Echo tthrc r-t 2d w/wom-mode compl spec&colr d 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 BOATING SAFETY OFFICER - LIFE MANAGEMENT TEACHER Work Phone: Start: 04-16-2019 Basic metabolic panel calcium total 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 BOATING SAFETY OFFICER - LIFE MANAGEMENT TEACHER Work Phone: Start: 03-04-2019 Echo tthrc r-t [...] Phone: Start: 03-03-2019 Blood count complete automated Vernkaylah Faustinel Work Phone: Start: 03-03-2019 ECHOCARDIOGRAM LIMITED Tyshawn cuba Work Phone: Start: 03-03-2019 Blood typing serologic abo Unknown Provi trena Result Start: 03-03-2019 POTASSIUM W/ REFLEX TO MAGNESIUM Roseann claudia Martinez Mehdi Work Phone: Start: 02-21-2019 Blood count complete [...] Yaw Singh Work Phone: Comment on above: ROE-QCS-Lqurlo RPDA w/ 2.25 x 16 mm Prom us Premier, APPLE-Distal RCA w/ 4.0 x 16 mm Promus Premier and APPLE-Mid RCA w/ 4.0 x 16 mm Promus Premier 07/23/2014; CNB-TAN-Kyeawx SVG-D1 w/ 3.5 x 18 mm Xience [...] bypass grafting S/P CABG x 4 Urology [facility] Work Phone: Plan of Treatment Date Care Activity Detail Author Start: 05-07-2034 Urine microalbumin profile DTaP,Tdap,Td Vaccine (5 - Td or Tdap) [facility] Start: 10-07-2029 Lipid panel Lipid Screening [facility] Start: 04-17-2029 Lipid panel Lipid Screening [facility] Start: 10-04-2028 Lipid panel Lipid Screening [facility] Start: 06-18-2028 Lipid panel Lipid Screening [facility] Start: 01-29-2028 DTaP/Tdap/Td vaccine (3 - Td) DTaP/Tdap/Td vaccine (3 - Td) [place] Start: 01-29-2028 Urine microalbumin profile [facility] Start: 10-08-2027 Diabetes Screening Diabetes Screening [facility] Start: 06-12-2027 Diabetes Screening Diabetes Screening [facility] Start: 04-17-2027 Diabetes Screening Diabetes Screening [facility] Start: 02-20-2027 Lipid 1996 panel - Serum or Plasma Lipid Screening [facility] Start: 02-20-2027 Lipid panel Lipid Screening [facility] Start: 02-20-2027 LIPID SCREEN LIPID SCREEN [facility] Start: 02-20-2027 PROSTATE CANCER SCREENING DISCUSSION PROSTATE CANCER SCREENING DISCUSSION [facility] Start: 02-20-2027 Prostate specific antigen measurement Prostate Cancer Screening Discussion [facility] Start: 12-06-2026 Colon cancer screen colonoscopy Colon cancer screen colonoscopy [employer] [facility] Start: 12-06-2026 Screening for malignant neoplasm of colon Colon cancer [facility] [place] Start: 10-04-2026 Diabetes Screening Diabetes Screening [facility] Start: 09-12-2026 Diabetes Screening Diabetes Screening [facility] Start: 07-27-2026 LIPID SCREEN LIPID SCREEN [facility] Start: 06-18-2026 Diabetes Screening Diabetes Screening [facility] Start: 02-13-2026 Diabetes Screening Diabetes Screening [facility] Start: 01-20-2026 PROSTATE CANCER SCREENING DISCUSSION PROSTATE CANCER SCREENING DISCUSSION [facility] Start: 01-07-2026 LIPID SCREEN LIPID SCREEN [facility] Start: 10-07-2025 Annual PCP Team Chronic Disease Visit Annual PCP Team Chronic Disease Visit [facility] Start: 10-07-2025 Creatinine measurement Serum Creatinine [facility] Start: 10-07-2025 Hepatitis B surface antibody level LDL Cholesterol [facility] Start: 09-22-2025 Annual PCP Team Chronic Disease Visit Annual PCP Team Chronic Disease Visit [facility] Start: 09-12-2025 BP Controlled (<130/80) BP Controlled (<130/80) [facility] Start: 08-22-2025 DIABETES SCREEN DIABETES SCREEN [facility] Start: 08-22-2025 Diabetes Screening Diabetes Screening [facility] Start: 08-20-2025 BP Controlled (<130/80) BP Controlled (<130/80) [facility] Start: 08-05-2025 BP Controlled (<130/80) BP Controlled (<130/80) [facility] Start: 06-30-2025 Annual PCP Team Chronic Disease Visit Annual PCP Team Chronic Disease Visit [facility] Start: 03-24-2026 BP Controlled (<130/80) BP Controlled (<130/80) [facility] Start: 06-11-2025 BP Controlled (<130/80) BP Controlled (<130/80) [facility] Start: 06-11-2025 Complete blood count Hemoglobin/Hematocrit [facility] Start: 06-11-2025 Creatinine measurement Serum Creatinine [facility] Start: 06-01-2025 Colonoscopy COLONOSCOPY [facility] Start: 06-01-2025 COLORECTAL CANCER SCREENING COLORECTAL CANCER SCREENING [facility] Start: 06-01-2025 Screening for malignant neoplasm of colon [facility] Start: 05-22-2025 DIABETES SCREEN DIABETES SCREEN [facility] Start: 05-11-2025 End: 05-11-2025 ambulatory 05/11/2025 9:50 AM EST Visit (SP) Office Hematology/Oncology [address] [place] [address] Richard Jenkins DO [address] [place] [address] 6MO OV/CT & LABS 05/04* Hematology/Oncology Comment on above: 6MO OV/CT & LABS 05/04* Start: 05-07-2025 BP Controlled (<130/80) BP Controlled (<130/80) [facility] Start: 05-04-2025 End: 05-04-2025 Patient encounter procedure Cat Scan Comment on above: 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] Start: 05-04-2025 End: 05-04-2025 ambulatory 05/04/2025 9:00 AM EST Results Only [facility] [address] [place] [address] CBC/CMP [facility] Comment on above: CBC/CMP Start: 04-17-2025 Complete blood count Hemoglobin/Hematocrit [facility] Start: 04-17-2025 Creatinine measurement Serum Creatinine [facility] Start: 04-17-2025 Hepatitis B surface antibody level LDL Cholesterol [facility] Start: 03-11-2025 Annual PCP Team Chronic Disease Visit Annual PCP Team Chronic Disease Visit [facility] Start: 03-11-2025 Anxiety Screening Anxiety Screening [facility] Start: 03-11-2025 BP Controlled (<130/80) BP Controlled (<130/80) [facility] Start: 03-11-2025 Medicare Annual Wellness Visit Medicare Annual Wellness Visit [facility] Start: 03-11-2025 End: 03-11-2025 Patient encounter procedure 03/11/2025 8:00 AM EST Office Visit Family [facility] [address] [place] [address] Yaw Singh MD [address] [place] [address] Medicare Wellness [facility] Comment on above: Medicare Wellness Start: 02-20-2025 DIABETES SCREEN DIABETES SCREEN [facility] Start: 01-30-2025 BP Controlled (<130/80) BP Controlled (<130/80) [facility] Start: 01-16-2025 Annual PCP Team Chronic Disease Visit Annual PCP Team Chronic Disease Visit [facility] Start: 01-16-2025 BP Controlled (<130/80) BP Controlled (<130/80) [facility] Start: 01-05-2025 End: 01-05-2025 Patient encounter procedure 01/05/2025 7:00 AM EDT Office Visit [facility] [address] [place] [address] Yaw Singh MD [address] [place] [address] Review outside testing BMD Family [facility] Comment on above: Review outside testing BMD Start: 01-02-2025 Annual PCP Team Chronic Disease Visit Annual PCP Team Chronic Disease Visit [facility] Start: 01-02-2025 BP Controlled (<130/80) BP Controlled (<130/80) [facility] Start: 12-08-2024 Influenza vaccination Influenza Vaccine (#1) [facility] Start: 12-03-2024 MR Lumbar spine [facility] Start: 12-03-2024 MRI of lumbar spine Spine Lumbar (Routine) [facility] Start: 11-20-2024 End: 11-20-2024 Patient encounter procedure 11/20/2024 1:00 PM EDT Office Visit [facility] [address] [place] [address] Gloria Torres APRN.LIFE MANAGEMENT TEACHER [address] [place] [address] Lumbar back pain [M54.50]; Compression fracture of lumbar vertebra with routine healing, unspecified lumbar vertebral level, subsequent encounter [S32.000D]; Closed wedge compression fracture of T10 vertebra with routine healing, subsequent encounter [S22.070D [facility] Comment on above: Lumbar back pain [M54.50]; Compression f racture of lumbar vertebra with routine healing, unspecified lumbar vertebral level, subsequent encounter [S32.000D]; Closed wedge compression fracture of T10 vertebra with routine healing, subsequent encounter [S22.070D Start: 11-14-2024 X-ray of lumbar spine, two or three views Lumbar Spine 2 or 3 Views [facility] Start: 11-07-2024 End: 11-07-2024 ambulatory 11/07/2024 9:40 AM EDT Visit (SP) Office Hematology/Oncology [address] [place] [address] Richard Jenkins DO [address] [place] [address] 6 MO OV/MRI 05/07 &CT 11/07* Hematology/Oncology Comment on above: 6 MO OV/MRI 05/07 &CT 11/07* Start: 11-02-2024 DIABETES SCREEN DIABETES SCREEN [facility] Start: 10-31-2024 End: 10-31-2024 Patient encounter procedure Cat Scan Comment on above: 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] Start: 10-23-2024 End: 10-23-2024 Patient encounter procedure 10/23/2024 3:00 PM EDT Office Visit Endocrinology [address] [place] [address] Delicia Díaz MD [address] [place] [address] Gynecomastia [N62] Endocrinology Comment on above: Gynecomastia [N62] Start: 10-20-2024 DIABETES SCREEN DIABETES SCREEN [facility] Start: 10-15-2024 Patient discharge [facility] Start: 10-07-2024 End: 01-06-2025 Basic metabolic 2000 panel - Serum or Plasma [facility] Comment on above: Expected: 10/07/2024, Expires: 5 Start: 10-07-2024 End: 07-09-2025 LIPID PANEL, NONFASTING [facility] Comment on above: Expected: 10/07/2024, Expires: 6 Start: 10-07-2024 End: 10-07-2024 Patient encounter procedure 10/07/2024 12:40 PM EDT Office Visit [facility] [address] [place] [address] Usha Mcgovern PA-C [address] [place] [address] 6 month follow up [facility] Comment on above: 6 month follow up Start: 10-04-2024 Annual PCP Team Chronic Disease Visit Annual PCP Team Chronic Disease Visit [facility] Start: 10-04-2024 Creatinine measurement Serum Creatinine [facility] Start: 10-04-2024 Hepatitis B surface antibody level LDL Cholesterol [facility] Start: 10-03-2024 DIABETES SCREEN DIABETES SCREEN [facility] Start: 09-22-2024 End: 09-22-2024 Patient encounter procedure 09/22/2024 7:20 AM EDT Office Visit [facility] [address] [place] [address] Yaw Singh MD [address] [place] [address] Discuss MRI result and gynecomastia. [facility] Comment on above: Discuss MRI result and gynecomastia. Start: 09-17-2024 [facility] Start: 09-12-2024 Annual PCP Team Chronic Disease Visit Annual PCP Team Chronic Disease Visit [facility] Start: 09-12-2024 BP Controlled (<130/80) BP Controlled (<130/80) [facility] Start: 09-11-2024 End: 09-11-2024 Patient encounter procedure [facility] Comment on above: 6 month follow up Start: 09-08-2024 DIABETES SCREEN DIABETES SCREEN [facility] Start: 08-27-2024 End: 08-27-2024 Patient encounter procedure Mammogram Comment on above: Dx: Gynecomastia [N62]; Subareolar mass of right breast [N63.41]; Esophageal adenocarcinoma (HCC) [C15.9] Comp- Gynecomastia, Subareolar mass Rt; Esophageal adenocarcinoma Start: 08-24-2024 DIABETES SCREEN DIABETES SCREEN [facility] Start: 08-11-2024 DIABETES SCREEN DIABETES SCREEN [facility] Start: 07-27-2024 DIABETES SCREEN DIABETES SCREEN [facility] Start: 07-11-2024 BP Controlled (<130/80) BP Controlled (<130/80) [facility] Start: 06-30-2024 Anesthesia vascular shunt/shunt revision ANESTH VASCULAR SHUNT SURG [facility] Start: 06-30-2024 Arteriovenous anastomosis open direct AV FUSION DIRECT ANY SITE [facility] Start: 06-30-2024 End: 09-29-2024 Choriogonadotropin.beta subunit [Units/volume] in Serum or Plasma [facility] Comment on above: Expected: 06/30/2024, Expires: Start: 06-30-2024 End: 09-29-2024 Estradiol (E2) [Mass/volume] in Serum or Plasma [facility] Comment on above: Expected: 06/30/2024, Expires: Start: 06-30-2024 End: 09-29-2024 Follitropin [Units/volume] in Serum or Plasma [facility] Comment on above: Expected: 06/30/2024, Expires: Start: 06-30-2024 End: 09-29-2024 Lutropin [Units/volume] in Serum or Plasma [facility] Comment on above: Expected: 06/30/2024, Expires: Start: 06-30-2024 End: 09-29-2024 Prolactin [Mass/volume] in Serum or Plasma [facility] Comment on above: Expected: 06/30/2024, Expires: Start: 06-30-2024 End: 09-29-2024 Testosterone [Mass/volume] in Serum or Plasma [facility] Comment on above: Expected: 06/30/2024, Expires: Start: 06-30-2024 End: 09-29-2024 Thyrotropin [Units/volume] in Serum or Plasma [facility] Work Phone: Comment on above: Expected: 06/30/2024, Expires: Start: 06-30-2024 Patient discharge [facility] Start: 06-20-2024 End: 06-20-2024 Social Work 06/20/2024 10:30 AM EDT Social Work [facility] [address] [address] [address] [place] [address] PRE KID EVAL - PHONE CALL [facility] Comment on above: PRE KID EVAL - PHONE CALL Start: 06-18-2024 Annual PCP Team Chronic Disease Visit Annual PCP Team Chronic Disease Visit [facility] Start: 06-18-2024 Covid-19 Vaccine ( season) Covid-19 Vaccine () [facility] Comment on above: Postponed from 12/08/2022 (Declined at t his time) Start: 06-18-2024 Hepatitis B surface antibody level LDL Cholesterol [facility] Start: 06-11-2024 End: 06-11-2024 ambulatory 06/11/2024 4:00 PM EST Results Only [facility] [address] [place] [address] lab [facility] Comment on above: lab Start: 06-11-2024 End: 09-10-2024 ALGN RABBIT EPITHELIUM IGE [facility] Comment on above: Expected: 06/11/2024, Expires: Start: 06-11-2024 End: 09-10-2024 BLOOD TB SCREEN [facility] Comment on above: Expected: 06/11/2024, Expires: Start: 06-11-2024 End: 09-10-2024 Chronic hepatitis differentiation between hepatitis B and C virus panel - Serum or Plasma [facility] Comment on above: Expected: 06/11/2024, Expires: Start: 06-11-2024 End: 09-10-2024 Comprehensive metabolic 2000 panel - Serum or Plasma [facility] Comment on above: Expected: 06/11/2024 (Approximate), Expi res: 09/10/2024 Start: 06-11-2024 End: 09-10-2024 Cytomegalovirus IgG Ab [Units/volume] in Serum or Plasma [facility] [employer] Work Phone: Comment on above: Expected: 06/11/2024, Expires: Start: 06-11-2024 End: 09-10-2024 Bety Marie virus capsid IgG Ab [Units/volume] in Serum [facility] Comment on above: Expected: 06/11/2024, Expires: Start: 06-11-2024 End: 09-10-2024 HEPATITIS A ANTIBODY, IGG [facility] Comment on above: Expected: 06/11/2024, Expires: Start: 06-11-2024 End: 09-10-2024 HIV 1+2 Ab [Presence] in Serum or Plasma by Immunoassay [facility] Comment on above: Expected: 06/11/2024, Expires: Start: 06-11-2024 End: 09-10-2024 Parathyrin.intact [Mass/volume] in Serum or Plasma [facility] Comment on above: Expected: 06/11/2024 (Approximate), Expi res: 09/10/2024 Start: 06-11-2024 End: 09-10-2024 Phosphate [Mass/volume] in Serum or Plasma [facility] Comment on above: Expected: 06/11/2024 (Approximate), Expi res: 09/10/2024 Start: 06-11-2024 End: 09-10-2024 Prostate Specific Ag Free [Mass/volume] in Serum or Plasma [facility] Comment on above: Expected: 06/11/2024 (Approximate), Expi res: 09/10/2024 Start: 06-11-2024 End: 09-10-2024 RUBEOLA (MEASLES)IGG [facility] Comment on above: Expected: 06/11/2024, Expires: Start: 06-11-2024 End: 09-10-2024 STRONGYLOIDES IGG BL [facility] Comment on above: Expected: 06/11/2024, Expires: Start: 06-11-2024 End: 09-10-2024 SYPHILIS TREPONEMAL W/REFLEX [facility] Comment on above: Expected: 06/11/2024, Expires: Start: 06-11-2024 End: 09-10-2024 TRANSPLANT CONFIRM ABO/RH [facility] Comment on above: Expected: 06/11/2024 (Approximate), Expi res: 09/10/2024 Start: 06-11-2024 End: 09-10-2024 TYPE + SCREEN [facility] Comment on above: Expected: 06/11/2024 (Approximate), Expi res: 09/10/2024 Start: 06-11-2024 End: 09-10-2024 VARICELLA ZOSTER IGG [facility] Comment on above: Expected: 06/11/2024, Expires: Start: 06-11-2024 End: 06-11-2024 Nutrition therapy 06/11/2024 9:45 AM EST Education Nutrition Therapy [address] [address] [address]ente Addison, RD [address] [place] [address] pre kid eval Nutrition Therapy Comment on above: pre kid eval Start: 06-11-2024 End: 06-11-2024 Patient encounter procedure [facility]plant [facility] Comment on above: pre kid eval Start: 05-14-2024 End: 05-14-2024 Patient encounter procedure 05/14/2024 3:00 PM EST Office Visit Pulmonary Medicine [address] [place] [address] Helen Blair MD 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] Start: 05-06-2024 End: 05-06-2024 Patient encounter procedure 05/06/2024 2:30 PM EST Office Visit Pulmonary Medicine [address] [place] [address] Helen Blair MD [address] [address] 3 month follow up Pulmonary Medicine Comment on above: 3 month follow up Start: 05-02-2024 End: 05-02-2024 ambulatory 05/02/2024 3:30 PM EST Visit (SP) Office Hematology/Oncology [address] [place] [address] Richard Jenkins DO [address] [place] [address] 3 MO OV/LAB & CT 04/17* Hematology/Oncology Comment on above: 3 MO OV/LAB & CT 04/17* Start: 04-17-2024 End: 04-17-2024 ambulatory 04/17/2024 8:30 AM EST Visit (SP) Office Hematology/Oncology [address] [place], [place] [address] Richard Jenkins DO [address] [place] [id number] 3 MO OV/LAB & CT 04/10* Hematology/Oncology Comment on above: 3 MO OV/LAB & CT 04/10* Start: 04-10-2024 End: 04-10-2024 Patient encounter procedure Cat Scan Comment on above: 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] Start: 04-10-2024 End: 04-10-2024 ambulatory [facility] Comment on above: CREATININE(S)* CREATININE(S)/ coppe r level* CBC/RETIC/CREATININE (S)/ copper level* Start: 04-09-2024 Advance Directive Discussion Advance Directive Discussion [facility] Start: 03-30-2024 Annual PCP Team Chronic Disease Visit Annual PCP Team Chronic Disease Visit [facility] Start: 03-30-2024 BP Controlled (<130/80) BP Controlled (<130/80) [facility] in Start: 03-30-2024 RSV Vaccine (1 - 1-dose 60+ series) RSV Vaccine (1 - 1-dose 60+ series) [facility] Comment on above: Postponed from 2014 (Insurance Cov erage) Start: 03-30-2024 RSV Vaccine (1 - Risk 60-74 years 1-dose series) RSV Vaccine (1 - Risk 60-74 years 1-dose series) [facility] Comment on above: Postponed from 2014 (Insurance Cov erage) Start: 03-30-2024 Shingrix Vaccine (1 of 2) Shingrix Vaccine (1 of 2) [facility] Comment on above: Postponed from 2004 (Insurance Cov erage) Start: 03-12-2024 End: 03-12-2024 Patient encounter procedure 03/12/2024 8:00 AM EST Office Visit [facility] [address] [facility] [place] [address] Yaw Singh MD [address] [place] [address] Medicare wellness [facility] [place] Comment on above: Medicare wellness Start: 03-11-2024 End: 06-10-2024 Comprehensive metabolic 2000 panel - Serum or Plasma COMPREHENSIVE METABOLIC PANEL Lab Routine Essential hypertension, benign Mixed hyperlipidemia CKD (chronic kidney disease) stage 4, GFR 15-29 ml/min ([facility]) Expected: 03/11/2024, Expires: 06/10/2024 [facility] Comment on above: Expected: 03/11/2024, Expires: Start: 03-11-2024 End: 06-10-2024 Hemoglobin A1c in Blood HEMOGLOBIN A1C Lab Routine Elevated blood sugar Expected: 03/11/2024, Expires: 06/10/2024 [facility] Comment on above: Expected: 03/11/2024, Expires: Start: 03-11-2024 End: 06-10-2024 LIPID PANEL, NONFASTING LIPID PANEL, NONFASTING Lab Routine Essential hypertension, benign Mixed hyperlipidemia Expected: 03/11/2024, Expires: 06/10/2024 [facility] Work Phone: Comment on above: Expected: 03/11/2024, Expires: Start: 03-11-2024 End: 06-10-2024 Magnesium [Mass/volume] in Serum or Plasma MAGNESIUM Lab Routine Gastroesophageal reflux disease, unspecified whether esophagitis present Medication management Expected: 03/11/2024, Expires: 06/10/2024 [facility] Comment on above: Expected: 03/11/2024, Expires: Start: 03-11-2024 End: 06-10-2024 Prostate specific Ag [Mass/volume] in Serum or Plasma PROSTATE-SPECIFIC ANTIGEN DIAGNOSTIC Lab Routine Prostate disorder Expected: 03/11/2024, Expires: 06/10/2024 [facility] Comment on above: Expected: 03/11/2024, Expires: Start: 03-11-2024 End: 06-10-2024 Thyrotropin [Units/volume] in Serum or Plasma THYROID STIMULATING HORMONE Lab Routine Cold intolerance Expected: 03/11/2024, Expires: 06/10/2024 [facility] Comment on above: Expected: 03/11/2024, Expires: Start: 03-11-2024 End: 03-11-2024 Patient encounter procedure 03/11/2024 9:40 AM EST Office Visit Family [facility] [place] [address] [place] [id number] Yaw Singh MD [address] [place] [address] Medicare Wellness [facility] [place] Comment on above: Medicare Wellness Start: 03-07-2024 End: 06-06-2024 CBC W Auto Differential panel - Blood COMPLETE BLOOD COUNT AND DIFFERENTIAL Lab Routine Iron deficiency anemia due to chronic blood loss Expected: 03/07/2024, Expires: 06/06/2024 [facility] Comment on above: Expected: 03/07/2024, Expires: Start: 03-07-2024 End: 06-06-2024 Cobalamin (Vitamin B12) [Mass/volume] in Serum or Plasma VITAMIN B12 Lab Routine Gastroesophageal reflux disease, unspecified whether esophagitis present Medication management Expected: 03/07/2024, Expires: 06/06/2024 [facility] Comment on above: Expected: 03/07/2024, Expires: Start: 03-07-2024 End: 06-06-2024 Comprehensive metabolic 2000 panel - Serum or Plasma COMPREHENSIVE METABOLIC PANEL Lab Routine Essential hypertension, benign Mixed hyperlipidemia Expected: 03/07/2024, Expires: 06/06/2024 [facility] Work Phone: Comment on above: Expected: 03/07/2024, Expires: Start: 03-07-2024 End: 06-06-2024 Iron and Iron binding capacity panel - Serum or Plasma IRON AND TIBC Lab Routine Iron deficiency anemia due to chronic blood loss Expected: 03/07/2024, Expires: 06/06/2024 [facility] Comment on above: Expected: 03/07/2024, Expires: Start: 03-07-2024 End: 06-06-2024 LIPID PANEL, NONFASTING LIPID PANEL, NONFASTING Lab Routine Essential hypertension, benign Mixed hyperlipidemia Coronary 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 pectoris Expected: 03/07/2024, Expires: 06/06/2024 [facility] Comment on above: Expected: 03/07/2024, Expires: Start: 03-07-2024 End: 06-06-2024 Magnesium [Mass/volume] in Serum or Plasma MAGNESIUM Lab Routine Gastroesophageal reflux disease, unspecified whether esophagitis present Medication management Expected: 03/07/2024, Expires: 06/06/2024 [facility] Comment on above: Expected: 03/07/2024, Expires: Start: 03-07-2024 End: 06-06-2024 Urinalysis complete panel - Urine URINALYSIS, WITH MICROSCOPIC Lab Routine Essential hypertension, benign Mixed hyperlipidemia Expected: 03/07/2024, Expires: 06/06/2024 [facility] Comment on above: Expected: 03/07/2024, Expires: Start: 02-20-2024 Annual PCP Team Chronic Disease Visit Annual PCP Team Chronic Disease Visit [facility] Start: 02-04-2024 End: 05-05-2024 Bacteria identified in Body fluid by Culture BODY FLUID CULTURE AND GRAM STAIN Microbiology Routine Pleural effusion Expected: 02/04/2024, Expires: 05/05/2024 [facility] Comment on above: Expected: 02/04/2024, Expires: Start: 02-04-2024 End: 05-05-2024 BODY FLUID CELL COUNT BODY FLUID CELL COUNT Lab Routine Pleural effusion Expected: 02/04/2024, Expires: 05/05/2024 [facility] Work Phone: Comment on above: Expected: 02/04/2024, Expires: Start: 02-04-2024 End: 05-05-2024 CYTOLOGY NON-NUCLEAR CONTROL ROOM OPERATOR CYTOLOGY NON-NUCLEAR CONTROL ROOM OPERATOR Lab Routine Pleural effusion Expected: 02/04/2024, Expires: 05/05/2024 [facility] Comment on above: Expected: 02/04/2024, Expires: Start: 02-04-2024 End: 05-05-2024 Glucose [Mass/volume] in Body fluid GLUCOSE, BODY FLUID Lab Routine Pleural effusion Expected: 02/04/2024, Expires: 05/05/2024 [facility] Comment on above: Expected: 02/04/2024, Expires: Start: 02-04-2024 End: 05-05-2024 Lactate dehydrogenase [Enzymatic activity/volume] in Body fluid LACTATE DEHYDROGENASE, BODY FLUID Lab Routine Pleural effusion Expected: 02/04/2024, Expires: 05/05/2024 [facility] Comment on above: Expected: 02/04/2024, Expires: Start: 02-04-2024 End: 05-05-2024 Lactate dehydrogenase [Enzymatic activity/volume] in Serum or Plasma LACTATE DEHYDROGENASE Lab Routine Pleural effusion Expected: 02/04/2024, Expires: 05/05/2024 [facility] Comment on above: Expected: 02/04/2024, Expires: Start: 02-04-2024 End: 05-05-2024 Microorganism identified in Unspecified specimen by Culture AFB CULT + STAIN Microbiology Routine Pleural effusion Expected: 02/04/2024, Expires: 05/05/2024 [facility] Comment on above: Expected: 02/04/2024, Expires: Start: 02-04-2024 End: 05-05-2024 pH of Body fluid PH BODY FLUID Lab Routine Pleural effusion Expected: 02/04/2024, Expires: 05/05/2024 [facility] Comment on above: Expected: 02/04/2024, Expires: Start: 02-04-2024 End: 05-05-2024 Protein [Mass/volume] in Body fluid PROTEIN, BODY FLUID Lab Routine Pleural effusion Expected: 02/04/2024, Expires: 05/05/2024 [facility] Comment on above: Expected: 02/04/2024, Expires: Start: 02-04-2024 End: 01-27-2025 Protein [Mass/volume] in Serum or Plasma PROTEIN, TOTAL Lab Routine Pleural effusion Expected: 02/04/2024, Expires: 05/05/2024 [facility] Comment on above: Expected: 02/04/2024, Expires: Start: 01-31-2024 End: 01-31-2024 Patient encounter procedure 01/31/2024 9:30 AM EDT Office Visit Pulmonary Medicine [address] [place] [address] Zachary Berkowitz APRN.[employer] [address] [place] [address] ?ASTHMA//6 month follow up Pulmonary Medicine Comment [...] (Vitamin B12) [Mass/volume] in Serum or Plasma [facility] Comment on above: Expected: 01/15/2024, Expires: Start: 01-15-2024 End: 04-15-2024 COPPER BLOOD [facility] Comment on above: Expected: 01/15/2024, Expires: Start: 01-15-2024 End: 04-15-2024 Ferritin [Mass/volume] in Serum or Plasma [facility] Comment on above: Expected: 01/15/2024, Expires: Start: 01-15-2024 End: 04-15-2024 Folate [Mass/volume] in Serum or Plasma [facility] Comment on above: Expected: 01/15/2024, Expires: Start: 01-15-2024 End: 04-15-2024 Iron and Iron binding capacity panel - Serum or Plasma [facility] Work Phone: Comment on above: Expected: 01/15/2024, Expires: Start: 01-15-2024 End: 04-15-2024 Transferrin receptor.soluble [Mass/volume] in Serum or Plasma [facility] Comment on above: Expected: 01/15/2024, Expires: Start: 01-15-2024 End: 01-15-2024 ambulatory 01/15/2024 8:50 AM EDT Visit (SP) Office Hematology/Oncology [address] [place], [place] [id number] Richard Jenkins DO [address] [address] [place], [place] [phone] 2MO OV * Hematology/Oncology Comment on above: 2MO OV * Start: 01-10-2024 End: 04-10-2024 CBC W Auto Differential panel - Blood COMPLETE BLOOD COUNT AND DIFFERENTIAL Lab Routine Anemia, unspecified type Expected: 01/10/2024, Expires: 04/10/2024 [facility] Work Phone: Comment on above: Expected: 01/10/2024, Expires: Start: 01-03-2024 End: 04-03-2024 Iron and Iron binding capacity panel - Serum or Plasma [facility] Work Phone: Comment on above: Expected: 01/03/2024, Expires: Start: 01-03-2024 End: 01-03-2024 Patient encounter procedure 01/03/2024 11:00 AM EDT Office Visit [facility] [place] [address] [place], [place] [phone] Yaw Singh MD [address] [place], [place] [phone] Discharged from [facility] 12/27/23 - New dialysis, Respiratory Failure [facility] Comment on above: Discharged from [facility] 4 - New dialysis, Respiratory Failure Start: 01-02-2024 End: 01-02-2024 ambulatory 01/02/2024 11:30 AM EDT Visit (SP) Office Hematology/Oncology [address] [place], [place] [phone] Richard Jenkins DO [address] [place], [place] [phone] 2MO OV * Hematology/Oncology Comment on above: 2MO OV * Start: 01-01-2024 End: 04-01-2024 CBC W Auto Differential panel - Blood COMPLETE BLOOD COUNT AND DIFFERENTIAL Lab Routine Excessive bleeding Expected: 01/01/2024, Expires: 04/01/2024 [facility] Work Phone: Comment on above: Expected: 01/01/2024, Expires: Start: 12-09-2023 Covid-19 Vaccine ( season) Covid-19 Vaccine ( season) [facility] Start: 12-09-2023 Covid-19 Vaccine ( season) Covid-19 Vaccine ( season) [facility] Start: 12-09-2023 Influenza vaccination Influenza Vaccine (#1) [facility] Start: 11-27-2023 End: 11-27-2023 Patient encounter procedure 11/27/2023 3:40 PM EDT Office Visit Endocrinology [address] [place], [place] [phone] Delicia Díaz MD [address] [place] [phone] medication consult Endocrinology Comment on above: medication consult Start: 10-09-2023 End: 10-09-2023 Patient encounter procedure 10/09/2023 8:45 AM EDT Office Visit Pulmonary Medicine [address] [place] [address] Helen Blair MD [address] [phone] Chronic pleural effusion [J90]; 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] Pulmonary Medicine Comment on above: Chronic pleural effusion [J90]; Malignan t neoplasm of lower third of esophagus (HCC) [C15.5] Start: 10-05-2023 End: 10-05-2023 ambulatory 10/05/2023 12:00 PM EDT OT/PT/Speech Visit [facility] Physical Therapy [address] [place] [address] Tye Flores, PT [address] [place] [address] S22.070D (ICD-10-CM) - Closed wedge compression fracture of T10 vertebra with routine healing, subsequent encounter [facility] Comment on above: S22.070D (ICD-10-CM) - Closed wedge comp ression fracture of T10 vertebra with routine healing, subsequent encounter Start: 10-05-2023 End: 10-05-2023 Patient encounter procedure 10/05/2023 9:40 AM EDT Office Visit [facility] [address] [place] [address] Yaw Singh MD [address] [place], [place] [phone] 6 month follow up [facility] [place] Comment on above: 6 month follow up Start: 10-04-2023 End: 10-04-2023 Patient encounter procedure 10/04/2023 7:40 AM EDT Office Visit Family [facility] [address] [place] [address] Danielle Kelly APRN.[facility] [address] [place] [address] 6 month follow up [facility] [place] Comment on above: 6 month follow up Start: 09-28-2023 End: 12-28-2023 Urinalysis complete panel - Urine URINALYSIS, WITH MICROSCOPIC Lab Routine Nephrolithiasis Expected: 09/28/2023, Expires: 12/28/2023 [facility] Comment on above: Expected: 09/28/2023, Expires: Start: 09-25-2023 End: 09-25-2023 Admission to same day surgery center 09/25/2023 12:30 PM EDT - 09/25/2023 1:49 PM EDT Surgery Angio [address] [place] [address] Luke Villalobos MD [address] [address] BONE BIOPSY TROCAR/NEEDLE DEEP Angio Comment on above: BONE BIOPSY TROCAR/NEEDLE DEEP Start: 09-25-2023 End: 09-25-2023 Biopsy bone trocar/needle deep BONE BIOPSY TROCAR/NEEDLE DEEP Malignant neoplasm of lower third of esophagus (HCC) Abnormal MRI, spine 09/25/2023 12:30 PM EDT ANGIO HB6 Start: 09-25-2023 Subsequent hospital visit by physician 09/25/2023 12:30 PM EDT Hospital Encounter Angio [address] [place] [address] Luke Villalobos MD [address] [address] 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] Angio Comment on above: 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] Start: 09-21-2023 End: 09-21-2023 Patient encounter procedure 09/21/2023 8:00 AM EDT Office Visit Cardiology [address] [place] [address] Pleural effusion [J90]; TRIPATHI (dyspnea on exertion) [R06.09] Cardiology Comment on above: Pleural effusion [J90]; TRIPATHI (dyspnea on exertion) [R06.09] Start: 09-20-2023 End: 09-20-2023 ambulatory 09/20/2023 8:30 AM EDT OT/PT/Speech Visit [facility] [address] [place] [address] Tye Flores, PT [address] [place] [address] S22.070D (ICD-10-CM) - Closed wedge compression fracture of T10 vertebra with routine healing, subsequent encounter [facility] Comment on above: S22.070D (ICD-10-CM) - Closed wedge comp ression fracture of T10 vertebra with routine healing, subsequent encounter Start: 09-18-2023 End: 12-18-2023 Basic metabolic 2000 panel - Serum or Plasma BASIC METABOLIC PANEL Lab Routine Elevated serum creatinine Expected: 09/18/2023, Expires: 12/18/2023 [facility] Work Phone: Comment on above: Expected: 09/18/2023, Expires: Start: 09-13-2023 End: 12-13-2023 Basic metabolic 2000 panel - Serum or Plasma [facility] Comment on above: Expected: 09/13/2023, Expires: Start: 09-13-2023 End: 12-13-2023 Natriuretic peptide.B prohormone N-Terminal [Mass/volume] in Serum or Plasma [facility] Comment on above: Expected: 09/13/2023, Expires: Start: 09-13-2023 End: 12-13-2023 Urinalysis complete panel - Urine [facility] Comment on above: Expected: 09/13/2023, Expires: Start: 09-10-2023 End: 09-10-2023 Patient encounter procedure 09/10/2023 8:40 AM EDT Appointment Radiology [address] [place] [address] Pathological fracture of thoracic vertebra, initial encounter [M84.48XA] Radiology Comment on above: Pathological fracture of thoracic verteb ra, initial encounter [M84.48XA] Start: 09-06-2023 End: 09-06-2023 ambulatory 09/06/2023 5:15 PM EDT OT/PT/Speech Visit [facility] [address] [address] Tye Flores, PT [address] [place] [address] back pain [facility] Comment on above: back pain Start: 08-30-2023 End: 08-30-2023 ambulatory 08/30/2023 5:15 PM EDT OT/PT/Speech Visit [facility] [address] [place] [address] Tye Flores, PT [address] [place] [address] back pain [facility] Comment on above: back pain Start: 08-23-2023 End: 08-23-2023 ambulatory 08/23/2023 5:15 PM EDT OT/PT/Speech Visit [facility] [address] [place] [address] Tye Flores, PT [address] [place] [address] back pain [facility] Comment on above: back pain Start: 08-16-2023 End: 08-16-2023 ambulatory 08/16/2023 11:30 AM EDT OT/PT/Speech Visit [facility] [address] [place] [address] Tye Flores, PT [address] [facility] [address] back pain [facility] Comment on above: back pain Start: 08-10-2023 ANNUAL PCP TEAM CHRONIC DISEASE VISIT ANNUAL PCP TEAM CHRONIC DISEASE VISIT [facility] Start: 08-10-2023 BP CONTROLLED (<130/80) BP CONTROLLED (<130/80) [facility] in Start: 08-10-2023 COVID-19 VACCINE (#1) COVID-19 VACCINE (#1) [facility] Comment on above: Postponed from 1954 (Declined at t his time) Start: 08-10-2023 End: 08-10-2023 ambulatory 08/10/2023 10:00 AM EDT Visit (SP) Office Hematology/Oncology [address] [place] [address] Richard Jenkins DO [address] [place] [address] OV PER 07/19/23 TE/CT 08/02* Hematology/Oncology Comment on above: OV PER 07/19/23 TE/CT 08/02* Start: 08-03-2023 End: 11-02-2023 CREATININE BLD CREATININE BLD Lab STAT Malignant neoplasm of lower third of esophagus (HCC) Expected: 08/03/2023, Expires: 11/02/2023 [facility] Work Phone: Comment on above: Expected: 08/03/2023, Expires: Start: 08-03-2023 End: 08-03-2023 Patient encounter procedure Cat Scan Comment on above: 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] Start: 08-03-2023 End: 08-03-2023 ambulatory 08/03/2023 7:45 AM EDT Results Only [place] [address] [place] [address] CREATININE(S)* [facility] Comment on above: CREATININE(S)* Start: 06-19-2023 End: 09-18-2023 Amylase [Enzymatic activity/volume] in Serum or Plasma [facility] Work Phone: Comment on above: Expected: 06/19/2023, Expires: 4 Start: 06-19-2023 End: 09-18-2023 Comprehensive metabolic 2000 panel - Serum or Plasma [facility] Work Phone: Comment on above: Expected: 06/19/2023, Expires: 4 Start: 06-19-2023 End: 09-18-2023 Lipase [Enzymatic activity/volume] in Serum or Plasma [facility] Work Phone: Comment on above: Expected: 06/19/2023, Expires: 4 Start: 05-25-2023 BP CONTROLLED (<130/80) BP CONTROLLED (<130/80) [facility] Start: 04-09-2023 Advance Directive Discussion Advance Directive Discussion [facility] Start: 03-17-2023 BP CONTROLLED (<130/80) BP CONTROLLED (<130/80) [facility] Start: 02-20-2023 Hepatitis B surface antibody level LDL CHOLESTEROL [facility] Start: 02-09-2023 ANNUAL PCP TEAM CHRONIC DISEASE VISIT ANNUAL PCP TEAM CHRONIC DISEASE VISIT [facility] Start: 02-09-2023 BP CONTROLLED (<130/80) BP CONTROLLED (<130/80) [facility] Start: 02-09-2023 SHINGRIX VACCINE (1 of 2) SHINGRIX VACCINE (1 of 2) [facility] Comment on above: Postponed from 1973 (Insurance Cov erage) Postponed from 03/26 (Insurance Coverage) Start: 12-08-2022 Covid-19 Vaccine ( season) Covid-19 Vaccine () [facility] Start: 12-08-2022 Influenza vaccination [facility] Start: 08-24-2022 BP CONTROLLED (<130/80) BP CONTROLLED (<130/80) [facility] Start: 08-09-2022 End: 10-09-2022 Basic metabolic 2000 panel - Serum or Plasma BASIC METABOLIC PNL Lab Routine Mixed hyperlipidemia Essential hypertension, benign Expected: 08/09/2022, Expires: 10/09/2022 [facility] Work Phone: Comment on above: Expected: 08/09/2022, Expires: 3 Start: 08-09-2022 End: 10-09-2022 CBC W Auto Differential panel - Blood CBC + DIFF Lab Routine Iron deficiency anemia due to chronic blood loss Expected: 08/09/2022, Expires: 10/09/2022 [facility] Work Phone: Comment on above: Expected: 08/09/2022, Expires: 3 Start: 08-09-2022 End: 10-09-2022 LIPID PANEL, NONFASTING LIPID PANEL, NONFASTING Lab Routine Mixed hyperlipidemia Expected: 08/09/2022, Expires: 10/09/2022 [facility] Work Phone: Comment on above: Expected: 08/09/2022, Expires: 3 Start: 07-27-2022 Hepatitis B surface antibody level LDL CHOLESTEROL [facility] Start: 07-19-2022 ANNUAL PCP TEAM CHRONIC DISEASE VISIT ANNUAL PCP TEAM CHRONIC DISEASE VISIT [facility] Start: 04-09-2022 ADVANCE DIRECTIVE DISCUSSION ADVANCE DIRECTIVE DISCUSSION [facility] Start: 02-09-2022 End: 04-11-2022 CBC W Auto Differential panel - Blood CBC + DIFF Lab Routine Iron deficiency anemia due to chronic blood loss Expected: 02/09/2022, Expires: 04/11/2022 [facility] Work Phone: Comment on above: Expected: 02/09/2022, Expires: 3 Start: 02-09-2022 End: 04-11-2022 Cobalamin (Vitamin B12) [Mass/volume] in Serum or Plasma VITAMIN B12 BLOOD Lab Routine Gastroesophageal reflux disease, unspecified whether esophagitis present Medication management Expected: 02/09/2022, Expires: 04/11/2022 [facility] Work Phone: Comment on above: Expected: 02/09/2022, Expires: 3 Start: 02-09-2022 End: 04-11-2022 Comprehensive metabolic 2000 panel - Serum or Plasma COMP METABOLIC PANEL Lab Routine Essential hypertension, benign Mixed hyperlipidemia Expected: 02/09/2022, Expires: 04/11/2022 [facility] Work Phone: Comment on above: Expected: 02/09/2022, Expires: 3 Start: 02-09-2022 End: 04-11-2022 Iron and Iron binding capacity panel - Serum or Plasma IRON + TIBC Lab Routine Iron deficiency anemia due to chronic blood loss Expected: 02/09/2022, Expires: 04/11/2022 [facility] Work Phone: Comment on above: Expected: 02/09/2022, Expires: 3 Start: 02-09-2022 End: 04-11-2022 LIPID PANEL, NONFASTING LIPID PANEL, NONFASTING Lab Routine Essential hypertension, benign Mixed hyperlipidemia Coronary 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 pectoris Expected: 02/09/2022, Expires: 04/11/2022 [facility] Work Phone: Comment on above: Expected: 02/09/2022, Expires: 3 Start: 02-09-2022 End: 04-11-2022 Magnesium [Mass/volume] in Serum or Plasma MAGNESIUM BLD Lab Routine Gastroesophageal reflux disease, unspecified whether esophagitis present Medication management Expected: 02/09/2022, Expires: 04/11/2022 [facility] Work Phone: Comment on above: Expected: 02/09/2022, Expires: 3 Start: 02-09-2022 End: 04-11-2022 Prostate specific Ag [Mass/volume] in Serum or Plasma PSA/PROSTSPECAG DIAG Lab Routine Prostate disorder Expected: 02/09/2022, Expires: 04/11/2022 [facility] Work Phone: Comment on above: Expected: 02/09/2022, Expires: 3 Start: 02-09-2022 End: 04-11-2022 Urinalysis complete panel - Urine URINALYSIS, WITH MICROSCOPIC Lab Routine Essential hypertension, benign Mixed hyperlipidemia Expected: 02/09/2022, Expires: 04/11/2022 [facility] Work Phone: Comment on above: Expected: 02/09/2022, Expires: 3 Start: 01-07-2022 Hepatitis B surface antibody level LDL CHOLESTEROL [facility] Start: 12-08-2021 Influenza vaccination INFLUENZA (#1) [facility] Start: 07-16-2021 DTaP/Tdap/Td vaccine (2 - Td) DTaP/Tdap/Td vaccine (2 - Td) [place] Start: 04-09-2021 ADVANCE DIRECTIVE DISCUSSION ADVANCE DIRECTIVE DISCUSSION [facility] Start: 11-03-2020 BP CONTROLLED (<130/80) BP CONTROLLED (<130/80) [facility] Start: 04-16-2020 Creatinine measurement Creatinine monitoring [facility] [place] Start: 04-16-2020 Potassium monitoring Potassium monitoring [facility] [place] Start: 03-04-2020 Creatinine monitoring Creatinine monitoring [facility] Work Phone: Start: 03-04-2020 Potassium monitoring Potassium monitoring [facility] Work Phone: Start: 02-22-2020 Creatinine monitoring Creatinine monitoring [facility] [place] Start: 02-22-2020 Potassium monitoring Potassium monitoring [facility] [place] Start: 12-26-2019 Annual Wellness Visit (AWV) Annual Wellness Visit (AWV) [place] Start: 12-09-2019 Influenza vaccination Flu vaccine (#1) [facility] [place] Start: 04-16-2019 End: 04-16-2019 Office Visit [facility] Start: 2019 Pneumococcal 65+ years Vaccine (2 of 2 - PPSV23) Pneumococcal 65+ years Vaccine (2 of 2 - PPSV23) [facility] Work Phone: Start: 03-12-2019 End: 03-12-2019 Office Visit 03/12/2019 Office Visit Cardiology 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 L, BOATING SAFETY OFFICER - LIFE MANAGEMENT TEACHER [address] [place] [address] [phone] [facility] Start: 03-05-2019 End: 03-05-2019 Appointment 03/05/[address] [facility] [address] Start: 03-03-2019 End: 03-03-2019 Appointment 03/03/2019 Appointment General Surgery Tyshawn Magallanes MD [address] [place] [address] [phone] Jp Zhao MD [address] [place] [address] [phone] [facility] General Surgery Start: 12-08-2018 Influenza vaccination Flu vaccine (#1) [facility] [place] Start: 07-20-2018 Creatinine monitoring Creatinine monitoring [facility] [place] Start: 07-20-2018 Potassium monitoring Potassium monitoring [place] Start: 12-26-2017 FECAL OCCULT BLOOD FECAL OCCULT BLOOD [facility] Start: 12-26-2017 Screening for malignant neoplasm of colon Fecal Occult Blood [facility] Start: 2014 RSV Vaccine (1 - 1-dose 60+ series) RSV Vaccine (1 - 1-dose 60+ series) [facility] Start: 2014 RSV Vaccine (1 - Risk 60-74 years 1-dose series) RSV Vaccine (1 - Risk 60-74 years 1-dose series) [facility] Start: 2004 Shingles Vaccine (1 of 2) Shingles Vaccine (1 of 2) [place] Start: 2004 SHINGRIX VACCINE (1 of 2) SHINGRIX VACCINE (1 of 2) [facility] Start: 1999 COLOGUARD (FIT-DNA) COLOGUARD (FIT-DNA) [facility] Start: [address] COLONOGRAPHY [facility] Start: 1999 Screening for malignant neoplasm of colon [facility] Start: 1999 SIGMOIDOSCOPY SIGMOIDOSCOPY [facility] Start: 1994 Diabetes screen Diabetes screen [place] Start: 1973 SHINGRIX VACCINE (1 of 2) SHINGRIX VACCINE (1 of 2) [facility] Start: 1972 Anxiety Screening Anxiety Screening [facility] Start: 1969 HIV screen HIV screen [place] Start: 1969 HIV screening HIV screen [place] Start: 1966 COVID-19 VACCINE (1) COVID-19 VACCINE (1) [facility] Start: 1964 Lipid panel Lipid screen [place] Start: 1964 Lipid screen Lipid screen [place] Start: 1959 COVID-19 VACCINE (#1) COVID-19 VACCINE (#1) [facility] Start: 1954 COVID-19 VACCINE (#1) COVID-19 VACCINE (#1) [facility] Start: 1954 Hepatitis C screen Hepatitis C screen [place] Start: 1954 Hepatitis C screening Hepatitis C screen [place] End: 02-21-2019 Bacteria identified Cx Nom (U) Urine Culture Microbiology Routine Nonrheumatic aortic valve stenosis 1 Occurrences starting 02/21/2019 until 02/21/2019 [place] Comment on above: 1 Occurrences starting 02/21/2019 until 02/21/2019 Bacteria identified Cx Nom (U) Urine Culture Microbiology Routine Nonrheumatic aortic valve stenosis 02/21/2019 11:20 AM EST [facility] [place] Basic metabolic 2000 panel Basic Metabolic Panel Lab Routine Daily until discontinued starting 03/03/2019, 2 completed [place] Comment on above: Daily until discontinued starting 2018, 2 completed End: 12-07-2025 BD DXA TRABECULAR BONE SCORE (TBS) BD DXA TRABECULAR BONE SCORE (TBS) Radiology Routine Malignant neoplasm of lower third of esophagus (HCC) 1 Occurrences starting 11/07/2024 until 12/07/2025 [facility] Comment on above: 1 Occurrences starting 11/07/2024 until 12/07/2025 CBC CBC Lab Routine Daily until discontinued starting 03/03/2019, 2 completed [facility] [place] Comment on above: Daily until discontinued starting 2018, 2 completed End: 12-02-2022 Ct abdomen & pelvis w/contrast material CT ABD/PEL W IVCON Radiology Routine Malignant neoplasm of lower third of esophagus (HCC) 1 Occurrences starting 11/02/2021 until 12/02/2022 [facility] Work Phone: Comment on above: 1 Occurrences starting 11/02/2021 until 12/02/2022 End: 09-21-2023 Ct abdomen & pelvis w/contrast material CT ABD/PEL W IVCON Radiology Routine Malignant neoplasm of lower third of esophagus (HCC) 1 Occurrences starting 08/22/2022 until 09/21/2023 [facility] Work Phone: Comment on above: 1 Occurrences starting 08/22/2022 until 09/21/2023 Ct abdomen & pelvis w/contrast material CT ABD/PEL W IVCON Radiology Routine Malignant neoplasm of lower third of esophagus (HCC) 02/13/2023 10:14 AM EST [facility] Work Phone: End: 08-17-2024 CT Abdomen and Pelvis W contrast IV CT ABD/PEL W IVCON Radiology Routine Malignant neoplasm of lower third of esophagus (HCC) 1 Occurrences starting 07/19/2023 until 08/17/2024 [facility] Work Phone: Comment on above: 1 Occurrences starting 07/19/2023 until 08/17/2024 CT Abdomen and Pelvi s W contrast IV CT ABD/PEL W IVCON Radiology Routine Malignant neoplasm of lower third of esophagus (HCC) 08/03/2023 9:29 AM EDT [facility] End: 12-07-2025 CT Abdomen and Pelvis W contrast IV CT ABD/PEL W IVCON Radiology Routine Malignant neoplasm of lower third of esophagus (HCC) 1 Occurrences starting 11/07/2024 until 12/07/2025 [facility] Comment on above: 1 Occurrences starting 11/07/2024 until 12/07/2025 End: 02-13-2025 CT Abdomen and Pelvis WO contrast CT ABD/PEL WO IVCON Radiology Routine Malignant neoplasm of lower third of esophagus (HCC) 1 Occurrences starting 01/15/2024 until 02/13/2025 [facility] Comment on above: 1 Occurrences starting 01/15/2024 until 02/13/2025 CT Abdomen and Pelvi s WO contrast CT ABD/PEL WO IVCON Radiology Routine Malignant neoplasm of lower third of esophagus (HCC) 04/17/2024 2:21 PM [facility] End: 06-01-2025 CT Abdomen and Pelvis WO contrast CT ABD/PEL WO IVCON Radiology Routine Malignant neoplasm of lower third of esophagus (HCC) 1 Occurrences starting 05/02/2024 until 06/01/2025 [facility] Comment on above: 1 Occurrences starting 05/02/2024 until 06/01/2025 CT Abdomen and Pelvi s WO contrast CT ABD/PEL WO IVCON Radiology Routine Malignant neoplasm of lower third of esophagus (HCC) 10/31/2024 10:23 AM EDT [facility] End: 08-17-2024 CT Chest W contrast IV CT CHEST W IVCON Radiology Routine Malignant neoplasm of lower third of esophagus (HCC) 1 Occurrences starting 07/19/2023 until 08/17/2024 [facility] Work Phone: Comment on above: 1 Occurrences starting 07/19/2023 until 08/17/2024 CT Chest W contrast IV CT CHEST W IVCON Radiology Routine Malignant neoplasm of lower third of esophagus (HCC) 08/03/2023 9:29 AM EDT [facility] Work Phone: End: 12-02-2022 CT CHEST W IVCON CT CHEST W IVCON Radiology Routine Malignant neoplasm of lower third of esophagus (HCC) 1 Occurrences starting 11/02/2021 until 12/02/2022 [facility] Work Phone: Comment on above: 1 Occurrences starting 11/02/2021 until 12/02/2022 End: 09-21-2023 CT CHEST W IVCON CT CHEST W IVCON Radiology Routine Malignant neoplasm of lower third of esophagus (HCC) 1 Occurrences starting 08/22/2022 until 09/21/2023 [facility] Work Phone: Comment on above: 1 Occurrences starting 08/22/2022 until 09/21/2023 CT CHEST W IVCON CT CHEST W IVCO N Radiology Routine Malignant neoplasm of lower third of esophagus (HCC) 02/13/2023 10:14 AM EST [facility] Work Phone: End: 02-13-2025 CT Chest WO contrast CT CHEST WO IVCON Radiology Routine Malignant neoplasm of lower third of esophagus (HCC) 1 Occurrences starting 01/15/2024 until 02/13/2025 [facility] Comment on above: 1 Occurrences starting 01/15/2024 until 02/13/2025 CT Chest WO contrast CT CHEST WO IVCON Radiology Routine Malignant neoplasm of lower third of esophagus (HCC) 04/17/2024 2:21 PM EST [facility] Work Phone: End: 06-01-2025 CT Chest WO contrast CT CHEST WO IVCON Radiology Routine Malignant neoplasm of lower third of esophagus (HCC) 1 Occurrences starting 05/02/2024 until 06/01/2025 [facility] Work Phone: Comment on above: 1 Occurrences starting 05/02/2024 until 06/01/2025 CT Chest WO contrast CT CHEST WO IVCON Radiology Routine Malignant neoplasm of lower third of esophagus (HCC) 10/31/2024 10:23 AM EDT [facility] Work Phone: DXA Bone [Mass/Area] Bone density [facility] End: 12-07-2025 DXA Skeletal system.axial Views for bone density DXA-AXIAL SKELETON Radiology Routine Malignant neoplasm of lower third of esophagus (HCC) Collapsed vertebra, not elsewhere classified, lumbar region, initial encounter for fracture (HCC) 1 Occurrences starting 11/07/2024 until 12/07/2025 [facility] Work Phone: Comment on above: 1 Occurrences starting 11/07/2024 until 12/07/2025 ECG COMPLETE ECG COMPLETE ECG Routine Pre-transplant evaluation for kidney transplant 06/11/2024 3:54 PM EST [facility] End: 09-12-2024 Echocardiography ECHO Cardiology Routine Pleural effusion TRIPATHI (dyspnea on exertion) 1 Occurrences starting 09/13/2023 until 09/12/2024 [facility] Work Phone: Comment on above: 1 Occurrences starting 09/13/2023 until 09/12/2024 End: 05-28-2024 EGD - THERAPEUTIC, EUS, OR TUBE INTERVENTIONS EGD - THERAPEUTIC, EUS, OR TUBE INTERVENTIONS Endoscopy Routine Malignant neoplasm of esophagus, unspecified location (HCC) 1 Occurrences starting 05/28/2023 until 05/28/2024 [facility] Work Phone: Comment on above: 1 Occurrences starting 05/28/2023 until 05/28/2024 End: 08-04-2022 EGD DIAGNOSTIC EGD DIAGNOSTIC Endoscopy Routine Malignant neoplasm of lower third of esophagus (HCC) 1 Occurrences starting 08/04/2021 until 08/04/2022 [facility] Work Phone: Comment on above: 1 Occurrences starting 08/04/2021 until 08/04/2022 End: 09-07-2022 EGD DIAGNOSTIC EGD DIAGNOSTIC Endoscopy Routine Malignant neoplasm of lower third of esophagus (HCC) 1 Occurrences starting 09/07/2021 until 09/07/2022 [facility] Work Phone: Comment on above: 1 Occurrences starting 09/07/2021 until 09/07/2022 End: 11-09-2022 EGD DIAGNOSTIC EGD DIAGNOSTIC Endoscopy Routine Malignant neoplasm of lower third of esophagus (HCC) 1 Occurrences starting 11/09/2021 until 11/09/2022 [facility] Work Phone: Comment on above: 1 Occurrences starting 11/09/2021 until 11/09/2022 EKG 12 lead [facility] [place] Comment on above: Daily until discontinued starting 2018, 2 completed Guidance for percutaneous biopsy of Bone IMAGING GUIDED BIOPSY VERTEBRA OR FEMUR Radiology Routine Malignant neoplasm of lower third of esophagus (HCC) Abnormal MRI, spine Ordered: 09/14/2023 [facility] Work Phone: Comment on above: Ordered: 09/14/2023 Guidance for thoracentesis of Chest IMAGING GUIDED THORACENTESIS Radiology Routine Pleural effusion Ordered: 02/04/2024 [facility] Comment on above: Ordered: 02/04/2024 Incentive spirometry Incentive s pirometry Respiratory Care Routine Every 2hr while awake until discontinued [facility] 03/03/2019 [facility]: Every 2hr while awake until discontinued starting 03/03/2019 Influenza virus A an d B RNA and SARS-CoV-2 (COVID-19) N gene panel - Respiratory specimen by YEISON with probe detection COVID WITH FLUA+B, ROUTINE Microbiology Routine Acute cough Ordered: 03/17/2022 [facility] Work Phone: Comment on above: Ordered: 03/17/2022 Initiate Oxygen Ther apy Protocol Initiate Oxygen Therapy Protocol Respiratory Care Routine Daily until discontinued starting 03/03/2019 [facility] Comment on above: Daily until discontinued starting 2018 End: 06-11-2025 KID K/P PANC REC INIT W/U KID K/P PANC REC INIT W/U ALLOGEN Routine Pre-transplant evaluation for kidney transplant 1 Occurrences starting 06/11/2024 until 06/11/2025 [facility] Comment on above: 1 Occurrences starting 06/11/2024 until 06/11/2025 KID K/P PANC REC INI T W/U KID K/P PANC REC INIT W/U ALLOGEN Routine Pre-transplant evaluation for kidney transplant 06/11/2024 4:13 PM EST [facility] End: 07-30-2025 MG Breast - bilateral Diagnostic ROCAEL DIAGNOSTIC BILATERAL Radiology Routine Gynecomastia Subareolar mass of right breast Esophageal adenocarcinoma (HCC) 1 Occurrences starting 06/30/2024 until 07/30/2025 [facility] Comment on above: 1 Occurrences starting 06/30/2024 until 07/30/2025 End: 09-08-2024 MR Thoracic spine WO and W contrast IV MRI THORACIC SPINE WO/W IVCON Radiology Routine Pathological fracture of thoracic vertebra, initial encounter 1 Occurrences starting 08/10/2023 until 09/08/2024 [facility] Work Phone: Comment on above: 1 Occurrences starting 08/10/2023 until 09/08/2024 End: 06-01-2025 MR Thoracic spine WO and W contrast IV MRI THORACIC SPINE WO/W IVCON Radiology Routine Malignant neoplasm of lower third of esophagus (HCC) Closed wedge compression fracture of T10 vertebra with delayed healing, subsequent encounter 1 Occurrences starting 05/02/2024 until 06/01/2025 [facility] Comment on above: 1 Occurrences starting 05/02/2024 until 06/01/2025 End: 03-22-2024 Mri spinal canal thoracic w/o & w/contr matrl MRI THORACIC SPINE WO/W IVCON Radiology Routine Esophageal adenocarcinoma (HCC) Compression fracture of thoracic vertebra, unspecified thoracic vertebral level, initial encounter (HCC) 1 Occurrences starting 02/21/2023 until 03/22/2024 [facility] Work Phone: Comment on above: 1 Occurrences starting 02/21/2023 until 03/22/2024 End: 07-18-2024 NM Biliary ducts and Gallbladder Views for patency of biliary structures and ejection fraction W sincalide and W radionuclide IV NM HEPATOBILIARY W EF AND/OR RX Radiology Routine RUQ pain Nausea 1 Occurrences starting 06/19/2023 until 07/18/2024 [facility] Work Phone: Comment on above: 1 Occurrences starting 06/19/2023 until 07/18/2024 End: 04-27-2024 NM PET/CT SKULL-THIGH SUBSEQUENT NM PET/CT SKULL-THIGH SUBSEQUENT Radiology Routine Malignant neoplasm of lower third of esophagus (HCC) 1 Occurrences starting 03/29/2023 until 04/27/2024 [facility] Work Phone: Comment on above: 1 Occurrences starting 03/29/2023 until 04/27/2024 Patient Education [facility] Work Phone: Patient referral [facility] Work Phone: PREPARE RBC (CROSSMATCH) [place], [place] End: 02-21-2019 PREPARE RBC (CROSSMATCH), 2 Units PREPARE RBC (CROSSMATCH), 2 Units Blood Bank Routine Nonrheumatic aortic valve stenosis 1 Occurrences starting 02/21/2019 until 02/21/2019 [place] Comment on above: 1 Occurrences starting 02/21/2019 until 02/21/2019 Pulse oximetry, continuous Pulse oximetry, continuous Respiratory Care Routine Every 4hr until discontinued starting 03/03/2019 [place] Comment on above: Every 4hr until discontinued starting RECIPIENT NOTIFICATION RECIPIENT NOTIFICATION ALLOGEN Routine Pre-transplant evaluation for kidney transplant Ordered: 06/11/2024 [facility] Comment on above: Ordered: 06/11/2024 End: 02-13-2025 RF Gastrointestinal tract upper Views W barium contrast PO XR UPPER GI SINGLE CONTRAST Radiology Routine Malignant neoplasm of lower third of esophagus (HCC) Early satiety Nausea 1 Occurrences starting 01/15/2024 until 02/13/2025 [facility] Comment on above: 1 Occurrences starting 01/15/2024 until 02/13/2025 SURGICAL PATHOLOGY [facility] Work Phone: Comment on above: Release Upon Ordering for 1 Occurrences starting 09/07/2021, 1 completed SURGICAL PATHOLOGY SURGICAL PATH OLOGY Lab Routine Malignant neoplasm of esophagus, unspecified location (HCC) Pre-op exam Malignant neoplasm of lower third of esophagus (HCC) Essential hypertension, benign Mixed hyperlipidemia Coronary 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 pectoris Gastroesophageal reflux disease, unspecified whether esophagitis present Aortic valve stenosis, etiology of cardiac valve disease unspecified Release Upon Ordering for 1 Occurrences starting 06/05/2023 [facility] Work Phone: Comment on above: Release Upon Ordering for 1 Occurrences starting 06/05/2023 End: 09-30-2022 Thyroxine (T4) free [Mass/volume] in Serum or Plasma T4 FREE/FREE THYROX Lab Routine Esophageal adenocarcinoma (HCC) Acquired hypothyroidism Iron deficiency anemia due to chronic blood loss Every other week for 26 Occurrences starting 09/30/2021 until 09/30/2022 [facility] Work Phone: Comment on above: Every other week for 26 Occurrences star ting 09/30/2021 until 09/30/2022 End: 07-18-2024 US Abdomen RUQ US ABD RIGHT UPPER QUADRANT Radiology Routine RUQ pain Nausea 1 Occurrences starting 06/19/2023 until 07/18/2024 [facility] Work Phone: Comment on above: 1 Occurrences starting 06/19/2023 until 07/18/2024 US Abdomen RUQ US ABD RIGHT UPP ER QUADRANT Radiology Routine RUQ pain Nausea 06/28/2023 11:15 AM EDT [facility] Work Phone: End: 07-30-2025 US Breast - right limited US BREAST LTD RIGHT Radiology Routine Gynecomastia Subareolar mass of right breast Esophageal adenocarcinoma (HCC) 1 Occurrences starting 06/30/2024 until 07/30/2025 [facility] Comment on above: 1 Occurrences starting 06/30/2024 until 07/30/2025 End: 10-12-2024 XR Chest PA and Lateral XR CHEST 2V FRONTAL/LAT Radiology Routine Pleural effusion TRIPATHI (dyspnea on exertion) 1 Occurrences starting 09/13/2023 until 10/12/2024 [facility] Comment on above: 1 Occurrences starting 09/13/2023 until 10/12/2024 XR Chest PA and Lateral XR CHEST 2V FRONTAL/LAT Radiology Routine Pleural effusion TRIPATHI (dyspnea on exertion) 09/13/2023 8:13 AM EDT [facility] End: 11-07-2024 XR Chest PA and Lateral XR CHEST 2V FRONTAL/LAT Radiology Routine Pleural effusion 1 Occurrences starting 10/09/2023 until 11/07/2024 [facility] Work Phone: Comment on above: 1 Occurrences starting 10/09/2023 until 11/07/2024 End: 03-01-2025 XR Chest PA and Lateral XR CHEST 2V FRONTAL/LAT Radiology Routine Pleural effusion 1 Occurrences starting 01/31/2024 until 03/01/2025 [facility] Work Phone: Comment on above: 1 Occurrences starting 01/31/2024 until 03/01/2025 End: 01-31-2024 XR Chest PA and Lateral [facility] Comment on above: 1 Occurrences starting 01/31/2024 until 01/31/2024 End: 03-05-2025 XR Chest PA and Lateral XR CHEST 2V FRONTAL/LAT Radiology Routine Pleural effusion 1 Occurrences starting 02/04/2024 until 03/05/2025 [facility] Comment on above: 1 Occurrences starting 02/04/2024 until 03/05/2025 End: 02-13-2025 XR GI SMALL BOWEL FOLLOW-THRU XR GI SMALL BOWEL FOLLOW-THRU Radiology Routine Malignant neoplasm of lower third of esophagus (HCC) Early satiety Nausea 1 Occurrences starting 01/15/2024 until 02/13/2025 [facility] Comment on above: 1 Occurrences starting 01/15/2024 until 02/13/2025 End: 11-06-2025 XR Lumbar spine AP and Lateral and oblique XR LUMBAR PARS DEFECT 4V AP/LAT/BOTH OBL Radiology Routine Lumbar back pain 1 Occurrences starting 10/07/2024 until 11/06/2025 [facility] Work Phone: Comment on above: 1 Occurrences starting 10/07/2024 until 11/06/2025 XR Lumbar spine AP a nd Lateral and oblique XR LUMBAR PARS DEFECT 4V AP/LAT/BOTH OBL Radiology Routine Lumbar back pain 10/07/2024 2:02 PM EDT [facility] Immunizations Immunization Date Immunization Notes Care Provider Les infante 08-19-2024 Hepatitis B vaccine (recombinant), CpG adjuvanted Yaw Smith BOATING SAFETY OFFICER.LIFE MANAGEMENT TEACHER Work Phone: [facility] 07-22-2024 Hepatitis B vaccine (recombinant), CpG adjuvanted Yawstevie Smith APRN.LIFE MANAGEMENT TEACHER Work Phone: [facility] 06-17-2024 Hepatitis B vaccine (recombinant), CpG adjuvanted Yaw Smith APRN.LIFE MANAGEMENT TEACHER Work Phone: [facility] 05-07-2024 tetanus and diphther ia toxoids, adsorbed, preservative free, for adult use (5 Lf of tetanus toxoid and 2 Lf of diphtheria toxoid) Edwin King ADALGISA.LIFE MANAGEMENT TEACHER Work Phone: [facility] 05-07-2024 TD(adult) unspecifie d formulation Edwin Simon BOATING SAFETY OFFICER.LIFE MANAGEMENT TEACHER Work Phone: [facility] Work Phone: 04-22-2024 Hepatitis B vaccine (recombinant), CpG adjuvanted Maulik Aranda MD Work Phone: [facility] 02-18-2024 Hepatitis B vaccine (recombinant), CpG adjuvanted Maulik Aranda MD Work Phone: [facility] 02-01-2024 Seasonal, trivalent, recombinant, injectable influenza vaccine, preservative free Maulik Aranda MD Work Phone: [facility] 02-01-2024 influenza virus vaccine, unspecified formulation Usha Mcgovern PA-C Work Phone: [facility] 01-21-2024 Hepatitis B vaccine (recombinant), CpG adjuvanted Maulik Aranda MD Work Phone: [facility] 12-17-2023 Hepatitis B vaccine (recombinant), CpG adjuvanted Yaw Singh MD Work Phone: [facility] 12-11-2023 influenza, high dose seasonal, preservative-free Yaw Singh MD Work Phone: [facility] 11-30-2023 pneumococcal conjuga te (PCV20) vaccine, 20 valent (PREVNAR 20) Yaw Singh MD Work Phone: [facility] 03-30-2023 influenza (HD-IIV4) vaccine, age 65+ yr, high dose, quadrivalent, PF (FLUZONE HIGH-DOSE) Amos Rangel MD Work Phone: [facility] 03-30-2023 influenza virus vaccine, unspecified formulation Helen Blair MD Work Phone: [facility] 02-09-2022 influenza, high-dose , quadrivalent vaccine (FLUZONE HIGH DOSE QUADRIVALENT) Yaw Singh MD Work Phone: [facility] 02-09-2022 influenza virus vaccine, unspecified formulation Ct (I-Stat) Work Phone: [facility] 01-31-[address] Yaw Singh Work Phone: [facility] 01-31-2021 influenza, seasonal, injectable, preservative free Richard Jenkins DO Work Phone: [facility] 01-13-2021 influenza, high-dose , quadrivalent vaccine (FLUZONE HIGH DOSE QUADRIVALENT) Richard Jenkins DO Work Phone: [facility] 11-04-2019 pneumococcal polysaccharide vaccine, 23 valent Richard Jenkins DO Work Phone: [facility] 01-28-2018 Influenza, injectabl e, [place] Canine Kidney, preservative free, quadrivalent Yaw Singh MD Work Phone: [facility] 01-28-2018 influenza, seasonal, injectable Richard Jenkins DO Work Phone: [facility] 01-28-2018 pneumococcal conjuga te vaccine, 13 valent Richard Jenkins DO Work Phone: [facility] 01-28-2018 tetanus toxoid, redu anahy diphtheria toxoid, and acellular pertussis vaccine, adsorbed Richard Jenkins DO Work Phone: [facility] 01-07-2018 influenza, injectabl e, quadrivalent, preservative free Yaw Singh MD Work Phone: [facility] 01-07-2018 tetanus toxoid, redu anahy diphtheria toxoid, and acellular pertussis vaccine, adsorbed Richard Mendezi DO Work Phone: [facility] 01-06-2017 influenza, injectabl e, quadrivalent, contains preservative Richard Jenkins DO Work Phone: [facility] 02-24-2016 influenza, injectabl e, quadrivalent, contains preservative Richard Goi DO Work Phone: [facility] 01-26-2015 influenza, injectabl e, quadrivalent, contains preservative Richard Mendezi DO Work Phone: [facility] 02-07-[address] Yaw Singh Work Phone: [facility] 02-07-2014 influenza, seasonal, injectable, preservative free Yaw Singh MD Work Phone: [facility] 07-17-2011 tetanus toxoid, redu anahy diphtheria toxoid, and acellular pertussis vaccine, adsorbed Richard Jenkins DO Work Phone: [facility] 01-21-2010 influenza virus vaccine, unspecified formulation Richard Jenkins DO Work Phone: [facility] 01-21-2010 pneumococcal polysaccharide vaccine, 23 valent Richard Jenkins DO Work Phone: [facility] 02-19-2009 influenza virus vaccine, unspecified formulation Richard Jenkins DO Work Phone: [facility] 02-02-2006 influenza virus vaccine, unspecified formulation Richard Jenkins DO Work Phone: [facility] Work Phone: Payers Date Payer Category Payer Self-pay [id number] 2019 Private Health Insurance MMO MED ICARE SUPPLEMENT [id number] 2019 Unknown MMO MMO MEDICARE SUPPLEMENT [id number] 2019-Present [phone] [address] [place] [address] Indemnity [id number] 2019 Unknown MMO MMO MEDICARE SUPPLEMENT [id number] 2019-Present [phone] [address] [place] [address] Indemnity [id number] 2019 Unknown [id number] 2019 Medicare MEDICARE MEDICAR E A AND B [id number] 2019-Present [phone] [address] [address] [place] [address] Medicare [id number] 2019 Medicare [id number]. [id number] 2019 Medicare [id number]. [id number] 2014 Unknown [id number] 2014 Unknown [employer] xxxxxxxxx 2014-Present [phone] [id number] [place] [address] xxxxxxxxx [id number]. [id number] Unknown [id number] Unknown [id number] 2.16.840.1.050649.3.579.2. 462 Unknown [id number] 2.16.840.1.607584.3.579.2. 462 Unknown [id number] 2.16.840.1.140933.3.579.2. 462 Unknown [id number] 2.16.840.1.829946.3.579.2. 462 Unknown [id number] 2.16840.1.870172.3.579.2. 462 Unknown [id number] 2.16.840.1.834529.3.579.2. 462 Unknown [id number] 2.840.1.888339.3.579.2. 462 Unknown [id number] 2.840.1.345445.3.579.2. 462 Unknown [id number] 2.840.1.957195.3.579.2. 462 Unknown [id number] 2.840.1.926151.3.579.2. 462 Unknown [id number] 2.840.1.327962.3.579.2. 462 Unknown [id number] 2.840.1.730542.3.579.2. 462 Unknown [id number] 2.840.1.816894.3.579.2. 462 Unknown [id number] 2.840.1.884652.3.579.2. 462 Unknown [id number] 2.840.1.556609.3.579.2. 462 Unknown [id number] 2.840.1.054408.3.579.2. 462 Unknown [id number] 2..840.1.180038.3.579.2. 462 Unknown [id number] 2.840.1.630791.3.579.2. 462 Unknown [id number] 2.840.1.671690.3.579.2. 462 Unknown [id number] 2.16.840.1.453619.3.579.2. 462 Unknown [id number] 2.16.840.1.580807.3.579.2. 462 Unknown [id number] 2.16.840.1.031390.3.579.2. 462 Unknown [id number] 2.16.840.1.878977.3.579.2. 462 Unknown [id number] 2.840.1.955723.3.579.2. 462 Social History Date Type Detail Facility Start: 02-18-2019 End: 10-23-2024 Tobacco smoking status NHIS Never smoker [facility] Start: 02-18-2019 End: 04-16-2019 Alcohol intake Current non-drinker of alcohol (finding) allyve Sex Assigned At Not on file allyve Start: 03-03-2020 End: 10-23-2024 Tobacco use and exposure Never used allyve Start: 07-17-2021 End: 02-09-2022 Exposure to SARS-CoV-2 (event) Not sure allyve Start: 07-27-2021 End: 11-14-2024 Alcohol intake Ex-drinker (finding) [facility] Start: 05-14-2020 History SDOH Alcohol Comment none [facility] Start: 1955 Sex Assigned At Male [facility] Start: 06-23-2022 [facility] Start: 06-27-2014 None [facility] Start: 06-27-2014 Spouse/ Signif icant Other [facility] Start: 08-22-2022 End: 09-22-2024 History of Social function [facility] Start: 08-22-2022 End: 09-22-2024 Tobacco use panel [facility] Start: 03-10-2012 Adult Depression Screening Assessment 0 [facility] Start: 05-18-2020 Gender identity Identifies as male gender (finding) [facility] Start: 05-18-2020 Sexual orientation Heterosexual (louis christensen) [facility] How often to you hav e a drink containing alcohol? Never [facility] Start: 06-19-2024 End: 06-30-2024 Sex Male (finding) [facility] Has the electric, Ti Knight s, oil, or water company threatened to shut off services in your home in past 12Mo No [facility] (I/We) worried lisa er (my/our) food would run out before (I/we) got money to buy more. Never true [facility] NEGATED: Highlighted rowStart: NINF History of tobacco use Passive smoker [facility] Medical Equipment Procedure Code Equipment Code Equipment Original Text Equipment Identifier Dates Primary uncemented hemiarthroplasty of hip ([id number]) Uncoated hip femur prosthesis, one-piece [id number] FDA Start: 02-15-2024 Primary uncemented hemiarthroplasty of hip ([id number]) Uncoated hip femur prosthesis, one-piece ()[id number] FDA Start: 02-15-2024 Primary uncemented hemiarthroplasty of hip Coated hip femur prosthesis, modular ()[id number] FDA Start: 02-15-2024 Insertion, catheter, hemodialysis CATHETER,CVD [...] hearing No 08/16/2020 1:11 PM EDT Ezekiel Vasques, MICHELE No [facility] 08-16-2020 Are you blind, or do you have serious difficulty seeing, even when wearing glasses No 08/16/2020 1:11 PM EDT Ezekiel Vasques, MICHELE No [facility] 08-16-2020 Do you have serious difficulty walking or climbing stairs No 08/16/2020 1:11 PM EDT Ezekiel Vasques, MICHELE No [facility] 08-16-2020 Do you have difficul ty dressing or bathing No 08/16/2020 1:11 PM EDT Ezekiel Vasques, MICHELE No [facility] 08-16-2020 Because of a physica l, mental, or emotional condition, do you have difficulty doing errands alone such as visiting a physician's office or shopping No 08/16/2020 1:11 PM EDT Ezekiel Vasques, MICHELE No [facility] Mental Status Date Assessment Result Facility 06-30-2024 Cognitive function Voice/Name [facility] Work Phone: 08-16-2020 Because of a physica l, mental, or emotional condition, do you have serious difficulty concentrating, remembering, or making decisions No 08/16/2020 1:11 PM EDT Ezekiel Vasques RN No [facility] Clinical Notes 03-03-2019 to 12-24-2024 Telephone Encounter - Usha Mcgovern PA-C - 12/24/2024 11:18 AM EDTTelephone Encounter - Usha Mcgovern PA-C - 12/24/2024 11:18 AM Bobby Balbuena APRN.[facility] - 12/24/2024 10:29 AM EDT Note Date & Type Note Facility 12-24-2024 Telephone encounter Note Noted. [facility] 12-24-2024 Miscellaneous Notes Noted. He's [...] stating he had bone density test at [facility] and from results, was informed to touch base with Dr. Jenkins to see if he would want further testing. documented in this encounter [facility] 12-24-2024 History of Present illness [...] kidney disease) stage 4, GFR 15-29 ml/min ([facility]) 01/03/2024 On dialysis and seeing Dr. Greenberg. Closed wedge compression fracture of T10 vertebra ([facility]) 07/12/2023 Compression fracture of lumbar vertebra ([facility]) 11/14/202411/2024: L1-L5 seen Dr Davila and referred to pain management. Coronary 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 Seeing Dr. 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 03/30/2023 Will try pamelor Pleural effusion 03/11/2021 Stable in f/u studies. Pressure ulcer of unspecified buttock, stage 2 ([facility]) 01/03/2024 Bilaterally. Primary insomnia 03/30/2023 S/P CABG [...] COLONOSCOPY W/BIOPSY SINGLE/MULTIPLE 02/22/2007 Diminutive polyp distal [id number] ECHO 01/08/2021 EGD 04/15/2020 HEART CATHETERIZATION 12/2018 [...] (FLONASE) 50 mcg/actuation nasal spray Use 1 [place] in each nostril once daily. ferrous sulfate [...] new or worsening symptoms. and Recording using Primary Data software for draft documentation of the visit was discussed with the patient/authorized business center representative; all questions welcomed and answered. Patient/authorized business center representative agreed to proceed Differential Diagnoses - [...] Drug use: No documented in this encounter [facility] 12-24-2024 Telephone encounter Note He's scheduled for 01/05 already. Jannet Goldsmith MA [facility] 12-23-2024 Telephone encounter Note See if patient wants to set up appt to discuss bone density results. [facility] 12-22-2024 Telephone encounter Note Spoke with pt. Informed he needed to speak with his PCP or ordering physician to discuss how they want to manage his osteoporosis. Pt. Voiced understanding. Isa Godoy LPN [facility] 12-22-2024 Telephone encounter Note Prescription [...] Goldsmith MA December 22, 2024 7:06 AM [facility] 12-22-2024 Miscellaneous Notes Prescription Refill [...] 2024 7:06 AM documented in this encounter [facility] 12-21-2024 Telephone encounter Note Bone density demonstrated osteoporosis. He should speak to the ordering provider or his PCP about management of that. Richard Jenkins DO [facility] 12-18-2024 Telephone encounter Note Reports printed and will be sent to scanning. Will place in Dr. Jenkins's mailbox for review. Elvira Noriega LPN [facility] 12-18-2024 Telephone encounter Note Patient called stating he had bone density test at [facility] and from results, was informed to touch base with Dr. Jenkins to see if he would want further testing. [facility] Work Phone: 11-11-2024 Miscellaneous Notes Spoke with patient and scheduled Nuria Sanches AVS 11/07 6 month F/U with CBC/CMP/CT scans CT scans 1 week prior to OV ,needs to have day before dialysis documented in this encounter [facility] 11-11-2024 Telephone encounter Note Spoke with patient and scheduled Nuria Sanches [facility] 11-07-2024 Telephone encounter Note AVS 8/ 6 month F/U with CBC/CMP/CT scans CT scans 1 week prior to OV ,needs to have day before dialysis [facility] 11-07-2024 History of Present illness Narrative Oncologic problem(s): 1) Adenocarcinoma the GE junction. HPI: The patient is a 69--year-old male with a past medical history significant for coronary artery disease (CABG x4 vessels 2002; 2 stents at [facility] /2018; 3 stents [facility] 2014), HTN, hyperlipidemia, [...] abdomen: Dedicated CT abdomen pelvis dictated separately. Welder (topogram) images: No additional findings. CT A/P [...] chest CT performed will be reported separately. Welder (topogram) images: No additional findings. 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 Pain was most intense in March. MRI and PET reviewed by several radiologists. Consensus was no evidence of cancer and biopsy not recommended. He was seen at the spine center in [place]. Office visit 08/2023: Back pain significantly improved after passing kidney stones. Has days without back pain. 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 Here in the past couple weeks, I felt better than I felt since last summer. OV 01/15/2024: Has been hospitalized several times at [facility]. Developed end-stage renal disease and started [...] which included preparing to see the patient, [id number] patient care, completing clinical documentation, obtaining and/or reviewing separately obtained history, performing a medically appropriate examination, counseling and educating the patient/family/caregiver, ordering medications, tests, or procedures, communicating with other HCPs (not separately reported), and communicating results to the patient/family/caregiver. Richard Jenkins DO documented in this encounter [facility] 11-05-2024 History of Present illness [...] 2024 1:05 PM documented in this encounter [facility] 10-31-2024 History of Present illness [...] PATIENT PRESENTS WITH AN IMPLANTABLE OR ATTACHED PRAWN TRAWLER HAND: No RADIOLOGY DEPARTMENT: CT; Exam(s) Completed: Chest Abdomen Pelvis PERIPHERAL IV DATA: Not applicable SIGNED BY: RT Geno(R) October 31, 2024 1:40 PM documented in this encounter [facility] 10-23-2024 History of Present illness [...] No nipple discharge. - Recently noticed a big knot on the left side of the chest [...] kidney disease) stage 4, GFR 15-29 ml/min ([facility]) 01/03/2024 On dialysis and seeing Dr. Greenberg. Closed wedge compression fracture of T10 vertebra (HCC) 07/12/2023 Coronary 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 Seeing Dr. 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 03/30/2023 Will try pamelor Pleural effusion [...] COLONOSCOPY W/BIOPSY SINGLE/MULTIPLE 02/22/2007 Diminutive polyp distal [id number] ECHO 01/08/2021 EGD 04/15/2020 HEART CATHETERIZATION 12/2018 [...] (FLONASE) 50 mcg/actuation nasal spray Use 1 [place] in each nostril once daily. ferrous sulfate [...] 83 Resp 21 Ht 177.8 cm (5' 10) Wt 72.8 kg (160 lb 6.4 oz) [...] Moderate Delicia Díaz MD Endocrinology Associate Staff [facility] Endocrinology and Metabolism [place] [phone] documented in this encounter [facility] 10-17-2024 Telephone encounter Note Patient notified Cristine Caceres MA [facility] 10-17-2024 Miscellaneous Notes Patient notified [...] Brandie Bailey RN documented in this encounter [facility] 10-17-2024 Telephone encounter Note Let patient know I would be ok with him trying the back brace to see if it provides some relief. [facility] 10-17-2024 Telephone encounter Note Patient calls to ask if he needs to schedule with [facility] since he is scheduled here on 11/20/2024. Notified patient that the appointment on 11/20/2204 is for pain management so should also schedule with [facility]. Patient also asking if it would be ok to trial a back brace until he is seen by specialists. He thought maybe that would help keep his pain under a little more control. Would like provider's recommendation. Patient reports he would just pick one up from the drug store if Dr. Singh thought it would be beneficial. Brandie Bailey RN [facility] 10-15-2024 History and physical note Note Date/Time October 15, 2024 10:25am [facility] Medical Records Department [address] [place] [address] History & Physical Exam 10/15/24 1022 MR#: [id number] Acct: [id number] Name: JACOB LANDA Rep #:[id number] : 1955 69 From: Nikita Jackson MD PCP: Dr. Yaw Singh MD Status:[facility] Location: [facility] HPI - General HPI Narrative JACOB LANDA, is a 69 M who presents with ESRD currently using a left upper arm AV fistula without issue. He has a prior left IJ tunneled catheter he is no longer using and presents for removal. PFSH Medical History Thrombocytopenia Wears glasses Cancer [...] Esophageal carcinoma Atherosclerosis of coronary artery of [place] heart without angina pectoris 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 Essential (primary) hypertension Non-rheumatic aortic stenosis Syncope and collapse Hyperlipidemia Atherosclerotic heart disease of [place] coronary artery with other forms of angina [...] Jackson MD; Dr. Yaw Singh MD~ Signed [facility] Work Phone: 1(276) 642-333207-09-2025 History and physical note [facility] Medical Records Department [address] [place] [address] History & Physical Exam 10/15/24 1022 MR#: [id number] Acct: [id number] Name: JACOB LANDA Rep #:[id number] : 1955 69 From: Nikita Jackson MD PCP: Dr. Yaw Singh MD Status:[facility] Location: [facility] HPI - General HPI Narrative JACOB LANDA, is a 69 M who presents with ESRD currently using a left upper arm AV fistula without issue. He has a prior left IJ tunneled catheter he is no longer using and presents for removal. [facility] Medical History Thrombocytopenia Wears glasses Cancer Cancer [...] Esophageal carcinoma Atherosclerosis of coronary artery of [place] heart without angina pectoris 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 Essential (primary) hypertension Non-rheumatic aortic stenosis Syncope and collapse Hyperlipidemia Atherosclerotic heart disease of [place] coronary artery with other forms of angina [...] Jackson MD; Dr. Yaw Singh MD~ Signed [facility]07-09-2025 [facility] Medical Records Department [address] [place] [address] History Physical Exam 10/15/24 1022 MR#: [id number] Acct: [id number] Name: JACOB LANDA Rep #: [id number] : 1955 69 From: Nikita Jackson MD PCP: Dr. Yaw Singh MD Status:[facility] Location: [facility] HPI - General HPI Narrative JACOB LANDA, is a 69 M who presents with ESRD currently using a left upper arm AV fistula without issue. He has a prior left IJ tunneled catheter he is no longer using and presents for removal. [facility] Medical History Thrombocytopenia Wears glasses Cancer Cancer [...] Esophageal carcinoma Atherosclerosis of coronary artery of [place] heart without angina pectoris 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 Essential (primary) hypertension Non-rheumatic aortic stenosis Syncope and collapse Hyperlipidemia Atherosclerotic heart disease of [place] coronary artery with other forms of angina [...] with exertion or wheez (more content not included)...[facility]07-08-2025 Telephone encounter Note* Telephone Encounter - Krystina Quinones LPN - 10/14/2024 11:29 AM EDT Pt notified of Usha's message and instructions. Pt reports that he takes the Zetia but doesn't always take the Lipitor. Advised pt that he needs to be taking both. Pt verbalizes understanding. Krystina Quinones LPN [facility]07-08-2025 Miscellaneous Notes* Telephone Encounter - [...] aware office would fax over referral to [facility] office and they would contact him to setup appt. Pt understood. Faxed all paperwork to [phone], updated referral in Epic. Pt asking about lab results he completed on 10/07/24. Notified pt I would route message to Provider. Jannet Goldsmith MA * Telephone Encounter - Usha Mcgovern PA-C - 10/13/2024 11:09 AM EDT Let patient know that his xray show multiple compression fractures. I will place [facility] see if they recommend any other treatments. Continue with pain management as well. Usha Mcgovern PA-C [facility] Telephone encounter Note * Telephone Encounter - Usha Mcgovern PA-C - 10/14/2024 7:28 AM EDT Labs are stable. LDL is slightly higher than goal. At 122 with goal under 70. Watch saturated fasts in diet and makesure taking the lipitor and zetia. [facility]07-07-2025 Telephone encounter Note* Telephone Encounter - Jannet Goldsmith MA - 10/13/2024 3:44 PM EDT Call to pt and notified him of results and recommendations below from Provider. Made pt aware office would fax over referral to [facility] and they would contact him to setup appt. Pt understood. Faxed all paperwork to [phone], updated referral in Epic. Pt asking about lab results he completed on 10/07/24. Notified pt I would route message to Provider. Jannet Goldsmith MA [facility]07-07-2025 Telephone encounter Note* Telephone Encounter - Usha Mcgovern PA-C - 10/13/2024 11:09 AM EDT Let patient know that his xray show multiple compression fractures. I will place [facility] to see if they recommend any other treatments. Continue with pain management as well. Usha Mcgovern PA-C [facility]07-01-2025 History of Present illness Narrative* Teresa Jeronimo RT(Bereket) - 10/07/2024 1:40 PM EDT Radiology Service [...] PATIENT PRESENTS WITH AN IMPLANTABLE OR ATTACHED PRAWN TRAWLER HAND: No RADIOLOGY DEPARTMENT: General X-ray: Exam(s) Completed: Spine X-Ray(s): Lumbar AP/LAT obliques PERIPHERAL IV DATA: Not applicable SIGNED BY: RT Isabell(Bereket) October 07, 2024 1:41 PM documented in this encounterUniversity Hospitals [facility]07-01-2025 History of Present illness Narrative* Usha Mcgovern [...] Disease: - Under care of Dr. Scott, cell operator. - On dialysis 3 times a week (Tuesdays, , and Saturdays). - On kidney transplant list. Coronary Artery Disease: - Under care of Dr. Noland, patient accounts specialist at [facility]. Vascular Disease: - Under care of [...] Ascending aorta dilation 09/21/2023 09/21/2023: 4.1cm Asthma ([facility]) BPH (benign prostatic hyperplasia) 07/20/2014 Carpal tunnel syndrome of right wrist CKD (chronic kidney disease) stage 4, GFR 15-29 ml/min ([facility]) 01/03/2024 On dialysis and seeing Dr. Greenberg. Closed wedge compression fracture of T10 vertebra (HCC) 07/12/2023 Coronary 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 Seeing Dr. 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 03/30/2023 Will try pamelor Pleural effusion 03/11/2021 Stable in f/u studies. Pressure ulcer of unspecified buttock, stage 2 ([facility]) 01/03/2024 Bilaterally. Primary insomnia 03/30/2023 S/P CABG [...] COLONOSCOPY W/BIOPSY SINGLE/MULTIPLE 02/22/2007 Diminutive polyp distal [id number] ECHO 01/08/2021 EGD 04/15/2020 HEART CATHETERIZATION 12/2018 [...] (FLONASE) 50 mcg/actuation nasal spray Use 1 [place] in each nostril once daily. ferrous sulfate [...] lipid panel. 3. Coronary 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 pectoris(I25.10) - Clinically stable. [...] dialysis three times weekly. - Follow-up with cell operator . 7. 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 Jackson on for port removal. 8. Benign prostatic hyperplasia, [...] with Hematology/oncology Usha Mcgovern PA-C Recording using Primary Data software for draft documentation of the visit was discussed with the patient/authorized business center representative; all questions welcomed and answered. Patient/authorized business center representative agreed to proceed documented in this encounterUniversity Hospitals Port[facility] Center06-20-2025 Telephone encounter Note * Telephone Encounter - Christiano Nolasco RN - 09/26/2024 4:56 PM EDT Pt called and is notified of providers results and instructions. Pt voices understanding. Transferred to scheduled to set up appt with Endocrinology. Christiano Nolasco RN [facility]06-20-2025 Miscellaneous Notes* Telephone Encounter - Christiano Nolasco RN - 09/26/2024 4:56 PM EDT Pt called and is notified of providers results and instructions. Pt voices understanding. Transferred to scheduled to set up appt with Endocrinology. Christiano Nolasco, RN * Telephone Encounter - Yaw Singh MD - 09/26/2024 11:53 AM EDT Let patient know I received input from our local ticket dispatcher and your recent labs and the gynecomastia. I would like for you to meet with her for further eval. She want to try to determine why the FSH, LH and prolactin are elevated and your testosterone level is normal. Order placed. documented in this encounterUniversity Hospitals Port[facility] Center06-20-2025 Telephone encounter Note * Telephone Encounter - Yaw Singh MD - 09/26/2024 11:53 AM EDT Let patient know I received input from our local ticket dispatcher and your recent labs and the gynecomastia. I would like for you to meet with her for further eval. She want to try to determine why the FSH, LH and prolactin are elevated and your testosterone level is normal. Order placed. [facility]06-16-2025 Instructions* Patient Instructions* Yaw Singh [...] I will send a message to our ticket dispatcher to ensure we are not missing anything [...] will follow up with you if the ticket dispatcher provides any additional recommendations based onyour labs. Please reach out if you have any further questions or concerns. documented in this encounterUniversity Hospitals [facility] Center06-16-2025 History of Present illness Narrative* [...] was hospitalized and subsequently transferred to a halfway. At thattime, a stroke was suspected but [...] ago Sunday, following a fistula procedure in [place]. He describes the area as feeling firm and causing wrinkles in the skin. Office visit 06/2023 Has [...] vertebra (HCC) 07/12/2023 Coronary 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 Seeing Dr. [...] 11/17/2020 Personal history of colonic polyps 12/27/2009 [employer]'s nodules 03/30/2023 Will try pamelor Pleural effusion [...] COLONOSCOPY W/BIOPSY SINGLE/MULTIPLE 02/22/2007 Diminutive polyp distal [id number] ECHO 01/08/2021 EGD 04/15/2020 HEART CATHETERIZATION 12/2018 [...] <AGE 12 Tonsillectomy TOT/SUB ESOPHAGECTOMY W/THORACOT 08/09/2020 [place] esophagectomy, jejunostomy tube placement TOTAL HIP [...] (FLONASE) 50 mcg/actuation nasal spray Use 1 [place] in each nostril once daily. ferrous sulfate [...] <5.0 mIU/mL <0.6 Results MRI BRAIN WO IVCON (Acc#[id number]) (Order [id number]) Patient Info Patient Name Sex Jacob Alba ([id number]) Male 1955 09/08/2024 3:46 PM - Radiology, [...] can be seen in setting of [facility]. Credit Card Specialist: SRIB Transcribe Date/Time: Sep 08 2024 3:29P Dictated by : RICHARD DEAL MD This examination was interpreted and the report reviewed and electronically signed by: RICHARD DEAL MD on Sep 08 2024 3:43PM EST Results-Findings * * *Final Report* * * DATE OF EXAM: Sep 08 2024 3:22PM WR [id number] - MRI BRAIN WO IVCON / [...] several weeks. Yaw Singh MD Recording using Primary Data software for draft documentation of the visit was discussed with the patient/authorized business center representative; all questions welcomed and answered. Patient/authorized business center representative agreed to proceed documented in this encounterUniversity Hospitals [facility]06-12-2025 History of Present illness Narrative* Krystina Quinones LPN - 09/18/2024 7:29 AM EDT Scan on 09/17/2024 10:16 PM by Provider, External, OPAL: Consultation - Emergency Medicine documented in this encounterUniversity Hospitals [facility] Center06-11-2025 Discharge summary [facility] Medical Records Department [address] [place] [address] Emergency Department Summary 09/17/24 MR#: [id number] Acct: [id number] Name: JACOB LANDA Rep #:[id number] : [...] Esophageal carcinoma Atherosclerosis of coronary artery of [place] heart without angina pectoris 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 Essential (primary) hypertension Non-rheumatic aortic stenosis Syncope and collapse Hyperlipidemia Atherosclerotic heart disease of [place] coronary artery with other forms of angina [...] graft without anginapectoris, Thrombocytopenia, Current use of chcf anticoagulation, End-stage renal disease on hemodialysis Instructions: [...] to the emergency department immediately. Print Language: Amharic Disposition Disposition: Home, Self Care What to do if you have Problems For any increased pain, shortness of breath, bleeding, nausea or vomiting, chestpain, or any unexpected problems, contact your Primary Care Provider. Call [facility] ([phone]) or report tothe closest Emergency Room. Call 911 if necessary. 09/17/242207 Cosigner Signature (if applicable): CC: Dr. Yaw Singh MD ~ Signed [facility]06-11-2025 Discharge summary Author Sushant Tom [facility] Note Date/Time September 17, 2024 10:0 8pm [facility] Medical Records Department [address] [place] [address] Emergency Department Summary 09/17/24 MR#: [id number] Acct: [id number] Name: JACOB LANDA Rep #:[id number] : [...] Esophageal carcinoma Atherosclerosis of coronary artery of [place] heart without angina pectoris 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 Essential (primary) hypertension Non-rheumatic aortic stenosis Syncope and collapse Hyperlipidemia Atherosclerotic heart disease of [place] coronary artery with other forms of angina [...] without angina pectoris, Thrombocytopenia, Current use of chcf anticoagulation, End-stage renal disease on hemodialysis Instructions: [...] to the emergency department immediately. Print Language: Amharic Disposition Disposition: Home, Self Care What to do if you have Problems For any increased pain, shortness of breath, bleeding, nausea or vomiting, chestpain, or any unexpected problems, contact your Primary Care Provider. Call [facility] ([phone]) or report to the closest Emergency Room. Call 911 if necessary. 09/17/242207 <Electronically signed by Sushant Tom MD> Cosigner Signature (if applicable): CC: Dr. Yaw Singh MD ~ Signed [facility] Work Phone: 1(966) 159-821106-11-2025 Hospital Discharge instructions Additional Instructions 1. Apply ice to your lower back 6-8 times a day for the next 3 to 5 days 2. Take medication as prescribed 3. If you are unable to urinate, loss of bowel control dragging your foot or or your knee [place] when you go up and down steps return to the emergency department immediately. [facility] Work Phone: 1(353) 854-612006-06-2025 History of Present illness Narrative* Yaw Smith APRN.LIFE MANAGEMENT TEACHER - 09/12/2024 8:45 AM EDT Images from [...] kidney disease) stage 4, GFR 15-29 ml/min ([facility]) 01/03/2024 On dialysis and seeing Dr. Greenberg. Closed wedge compression fracture of T10 vertebra ([facility]) 07/12/2023 Coronary 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 Seeing Dr. 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 03/30/2023 Will try pamelor Pleural effusion [...] COLONOSCOPY W/BIOPSY SINGLE/MULTIPLE 02/22/2007 Diminutive polyp distal [id number] ECHO 01/08/2021 EGD 04/15/2020 HEART CATHETERIZATION 12/2018 [...] <AGE 11 Tonsillectomy TOT/SUB ESOPHAGECTOMY W/THORACOT 08/09/2020 [place] esophagectomy, jejunostomy tube placement TOTAL HIP [...] (FLONASE) 50 mcg/actuation nasal spray Use 1 [place] in each nostril once daily. ferrous sulfate [...] of care. This note was generated using HundredApples software. It may contain errors in wording, punctuation, or spelling. Yaw Smith APRN.LIFE MANAGEMENT TEACHER documented in this encounterUniversity Hospitals [facility] Center06-03-2025 Telephone encounter Note * Telephone Encounter - Yaw Singh MD - 09/09/2024 5:24 PM EDT Shazia can we get Jacob on my schedule for a 20 min appt to discuss his MRI results and gynecomasty sometime between 09/11/2024 and his routine appt with Usha (which he is to keep) on 10/07/2024 [facility]06-03-2025 Miscellaneous Notes* Telephone Encounter - [...] management/discussion and neurology consideration. documented in this encounterUniversity Hospitals Portage Medical Center06-03-2025 Telephone encounter Note * Telephone Encounter - Tata Weems LPN - 09/09/2024 10:33 AM EDT Phoned patient and reviewed provider's message with him. Patient voiced understanding. Tata Weems LPN [facility]06-03-2025 Telephone encounter Note* Telephone Encounter [...] PCP for further management/discussion and neurology consideration. [facility]06-02-2025 Telephone encounter Note* Telephone Encounter - Yaw Singh MD - 09/08/2024 3:27 PM EDT Info below noted and agree. [facility]06-02-2025 Miscellaneous Notes* Telephone Encounter - [...] contrast unless it was run by his cell operator first. I f radiology does not think that the MRI as ordered will benefit him, the I would recommend delayingand coordinating the imaging with his cell operator. Forwarding to PCP as FYI. * Telephone [...] as recommended by PCP. documented in this encounterUniversity Hospitals Portage [facility] Center06-02-2025 Telephone encounter Note * Telephone Encounter - Stacia Adame MD - 09/08/2024 2:29 PM EDT With his CKD stage 4 I wanted to avoid contrast dye. I know that with some of the newer gadolinium based contrasts, it does not effect the kidneys as much, but I still would not feel comfortable withusing the contrast unless it was run by his cell operator first. I f radiology does not think that the MRI as ordered will benefit him, the I would recommend delayingand coordinating the imaging with his cell operator. Forwarding to PCP as FYI. [facility]06-02-2025 History of Present illness Narrative* [...] PATIENT PRESENTS WITH AN IMPLANTABLE OR ATTACHED PRAWN TRAWLER HAND: No RADIOLOGY DEPARTMENT: MR; Exam(s) Completed: Head: Routine Brain. Lavender Administered: No PERIPHERAL IV DATA: Not applicable SIGNED BY: RT Arlen(R) September 08, 2024 3:10 PM documented in this encounterUniversity Hospitals Port[facility] Center06-02-2025 Telephone encounter Note * Telephone [...] Bailey RN September 08, 2024 11:54 AM [facility]06-02-2025 Miscellaneous Notes* Telephone Encounter - [...] 08, 2024 11:54 AM documented in this encounterUniversity Hospitals [facility] Center05-30-2025 Telephone encounter Note * Telephone Encounter - Yaw Singh MD - 09/05/2024 1:09 PM EDT Noted. [facility]05-30-2025 Miscellaneous Notes* Telephone Encounter - [...] removal of the tissue. documented in this encounterUniversity Hospitals Portage [facility] Center05-30-2025 Telephone encounter Note * Telephone Encounter - Alberta Candelaria MA - 09/05/2024 11:29 AM EDT Patient notified and voiced understanding. Patient was not aware he need an MRI. Patient was unable to schedule right now was going to call back. Alberta Candelaria MA [facility]05-29-2025 Telephone encounter Note* Telephone Encounter - Yaw Singh MD - 09/04/2024 9:43 PM EDT Let patient know the mammogram and Us shows benign breast tissue on the right (Gynecomastia). See if he has the MRI set up and if so when. Would wait on this and if ok the next step would be to see surgeon for removal of the tissue. [facility]05-27-2025 Evaluation note* Diagnosis Onset Date [...] L5 vertebra acute November 14, 2024 9:28am [facility] Work Phone: [phone] Telephone encounter Note* Telephone Encounter - Erin Du LPN - 09/02/2024 8:47 AM EDT Last OV 05/02/24 Next OV 11/07/24 Pended Rx. Erin Du LPN [facility]05-27-2025 Miscellaneous Notes* Telephone Encounter - Erin Du LPN - 09/02/2024 8:47 AM EDT Last OV 05/02/24 Next OV 11/07/24 Pended Rx. Erin Du LPN * Telephone Encounter - Nuria Sanches - 09/02/2024 8:41 AM EDT Patient called for refill on Pantoprazole 40 mg and to send it to [facility]. He is all out. Nuria Sanches documented in this encounterUniversity Hospitals Portage [facility] Center05-27-2025 Telephone encounter Note * Telephone Encounter - Nuria Sanches - 09/02/2024 8:41 AM EDT Patient called for refill on Pantoprazole 40 mg and to send it to [facility]. He is all out. Nuria Sanches [facility]05-21-2025 NoteHNO ID: [id number] Author: LUPE BLACK RT(R) Service: ? Author [...] PATIENT PRESENTS WITH AN IMPLANTABLE OR ATTACHED PRAWN TRAWLER HAND: No RADIOLOGY DEPARTMENT: Mammography PERIPHERAL IV DATA: Not applicable SIGNED BY: RT Adam(R) August 27, 2024 9:52 [facility]05-14-2025 NoteHNO ID: [id number] Author: STEVE YOUSSEF PA-C Service: ? Author Type: Physician Network Field Engineer Type: Progress Notes Filed: 08/20/2024 18:42 Note Text: This note was created using NeXplore. Subjective Jacob Landa is a 69 year [...] low Diagnostic procedures: low Management options: low [facility]05-14-2025 History of Present illness Narrative* Steve Youssef PA-C - 08/20/2024 6:32 PM EDT This note was created using MiTúter. Subjective Jacob Landa is a 69 year [...] low Steve Youssef PA-C documented in this encounterUniversity Hospitals Portage Medical Center05-14-2025 History of Present illness Narrative* [...] PATIENT PRESENTS WITH AN IMPLANTABLE OR ATTACHED PRAWN TRAWLER HAND: No RADIOLOGY DEPARTMENT: General X-ray: Exam(s) Completed: Spine X-Ray(s): Lumbar AP / LAT / L5-S1 PERIPHERAL IV DATA: Not applicable SIGNED BY: Barry Rubalcava August 20, 2024 8:48 AM documented in this encounterUniversity Hospitals Portage Medical Center05-14-2025 NoteHNO ID: [id number] Author: MAXIMILIANO SOTOMAYOR Tech Service: ? Author [...] PATIENT PRESENTS WITH AN IMPLANTABLE OR ATTACHED PRAWN TRAWLER HAND: No RADIOLOGY DEPARTMENT: General X-ray: Exam(s) Completed: Spine X-Ray(s): Lumbar AP / LAT / L5-S1 PERIPHERAL IV DATA: Not applicable SIGNED BY: Barry Rubalcava August 20, 2024 8:48 [facility]05-13-2025 NoteHNO ID: [id number] Author: JOSUE OQUENDO RN Service: ? Author [...] Josue Oquendo RN August 19, 2024 2:19 [facility]05-13-2025 History of Present illness Narrative* Josue [...] 19, 2024 2:19 PM documented in this encounterUniversity Hospitals Portage Medical Center05-13-2025 NotePatient Outreach ([facility]) SYEDAJACOB Cuba ([id number]) 1955 M Date Time Provider Department 08/19/24 JOSUE OQUENDO [facility] During your visit today, we recorded the [...] (FLONASE) 50 mcg/actuation nasal spray Use 1 [place] in each nostril once daily. - ferrous [...] cancer [Z12.11] 11/24/2016 Obes (more content not included)...[facility]04-29-2025 NoteHNO ID: [id number] Author: JOSUE OQUENDO RN Service: ? Author [...] were you homeless or living in a long-term (including now)?: No Transportation Needs In the [...] In the past 12 months has the [place], gas, oil, or water [employer] threatened to shut off services in your home?: No Tobacco Use Patient reports that he has never smoked. He has never used smokeless tobacco. Interventions The following were addressed during this visit: - Intake assessments completed: ADLs, Fall Risk, SDOH - Patient-stated goal addressed (add comment) - Bi-Weekly Outreach (Recurring) Josue Oquendo RN August 05, 2024 12:56 [facility]04-29-2025 History of Present illness Narrative* Josue [...] were you homeless or living in a long-term (including now)?: No Transportation Needs In the [...] has the electric, gas, oil, or water [employer] threatened to shut off services in your home?: No Tobacco Use Patient reports that he has never smoked. He has never used smokeless tobacco. Interventions The following were addressed during this visit: - Intake assessments completed: ADLs, Fall Risk, SDOH - Patient-stated goal addressed (add comment) - Bi-Weekly Outreach (Recurring) Josue Oquendo RN August 05, 2024 12:56 PM documented in this encounterUniversity Hospitals Portage Medical Center04-29-2025 NoteHNO ID: [id number] Author: MARCELA REAL PA Service: ? Author Type: Physician Network Field Engineer Type: Progress Notes Filed: 08/05/2024 12:54 Note [...] kidney disease) stage 4, GFR 15-29 ml/min ([facility]) 01/03/2024 On dialysis and seeing Dr. Greenberg. Closed wedge compression fracture of T10 vertebra ([facility]) 07/12/2023 Coronary 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 Seeing Dr. 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 03/30/2023 Will try pamelor Pleural effusion [...] COLONOSCOPY W/BIOPSY SINGLE/MULTIPLE 02/22/2007 Diminutive polyp distal [id number] ECHO 01/08/2021 EGD 04/15/2020 HEART CATHETERIZATION 12/2018 [...] TONSILLECTOMY PRIMARY/SECONDARY Tonsillectomy TOT/SUB ESOPHAGECTOMY W/THORACOT 08/09/2020 [place] esophagectomy, jejunostomy tube placement TOTAL HIP REPLACEMENT Left 02/15/2024 ALLERGIES Seasonal Allergies MEDICATIONS OLANZapine (ZYPREXA) 2.5 mg tablet TAKE 1 TABLET BY MOUTH ONCE DAILY AT BEDTIME ezetimibe (ZETIA) 10 mg tablet Take 1 tablet by mouth once daily. atorvastatin (LIPITOR) 80 mg tablet Take 1 tablet by mouth daily at bedtime. metoprolol tartrate, short acting, (LOP (more content not included)...[facility]04-29-2025 History of Present illness Narrative* Marcela [...] kidney disease) stage 4, GFR 15-29 ml/min ([facility]) 01/03/2024 On dialysis and seeing Dr. Greenberg. Closed wedge compression fracture of T10 vertebra ([facility]) 07/12/2023 Coronary 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 Seeing Dr. 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 03/30/2023 Will try pamelor Pleural effusion [...] COLONOSCOPY W/BIOPSY SINGLE/MULTIPLE 02/22/2007 Diminutive polyp distal [id number] ECHO 01/08/2021 EGD 04/15/2020 HEART CATHETERIZATION 12/2018 [...] (FLONASE) 50 mcg/actuation nasal spray Use 1 [place] in each nostril once daily. ferrous sulfate [...] patient was discharged. Procedures documented in this encounterUniversity Hospitals Portage Medical Center04-29-2025 NotePatient Outreach ([facility] JACOB LANDA ([id number]) 1955 M Date Time Provider Department 08/05/24 JOSUE OQUENDO AMBC[facility] During your visit today, we recorded the [...] were you homeless or living in a long-term (including now)?: No Transportation Needs In the [...] In the past 12 months has the [employer], gas, oil, or water [employer] threatened to shut off services in your [...] (FLONASE) 50 mcg/actuation nasal spray Use 1 [place] in each nostril once daily. - ferrous sulfate (SLOW FE) 137 mg (45 mg iron) TbER Take 1 tablet by mouth every other day. - ascorbic acid, vitamin C, (VITAMIN C) 500 mg tablet Take 1 tablet by mouth every other day. - ondansetron orally disintegrating (ZOFRAN ODT) 4 mg disintegrating tablet Take 1 tablet by mo (more content not included)...[facility] 07-29-2024 NoteHNO ID: [id number] Author: ALBERTA CANDELARIA MA Service: ? Author Type: Outreach Manager Type: Progress Notes Filed: 07/29/2024 16:19 Note Text: Scan on 07/22/2024 5:29 PM by ProviderDanette PA-C: Consultation - General Surgery - follow up on AVF on 07/01/2024 Alberta Candelaria [facility]04-22-2025 History of Present illness Narrative* Alberta Candelaria MA - 07/29/2024 4:18 PM EDT Scan on 07/22/2024 5:29 PM by ProviderDanette PA-C: Consultation - General Surgery - follow up on AVF on 07/01/2024 Alberta Candelaria MA documented in this encounterUniversity [facility]04-15-2025 Evaluation note* Diagnosis Onset Date Resolution Status Admit Date AV fistula acute July 22 2:11pm AV fistula acute September 02, 2024 1:47pm Tunneled central venous cath eter present acute October 15, 2024 9 :01am [facility] Work Phone: 1(872) 389-498304-04-2025 Telephone encounter Note* Telephone Encounter - Brandie Bailey RN - 07/11/2024 9:44 AM EDT See TE 07/11/2024. Brandie Bailey RN [facility]04-04-2025 Miscellaneous Notes* Telephone Encounter - Brandie Bailey RN - 07/11/2024 9:44 AM EDT See TE 07/11/2024. Brandie Bailey RN documented in this encounterUniversity [facility]04-04-2025 Telephone encounter Note * Telephone Encounter - Brandie Bailey RN - 07/11/2024 9:42 AM EDT Patient calls and notified of results and providers instructions. Patient verbalizes understanding.Patient has scheduled mammogram and US. Will wait to schedule MRI-Brain once insurance authorization received. Brandie Bailey RN [facility]04-04-2025 Telephone encounter Note* Telephone Encounter - Stcaia Adame MD - 07/11/2024 7:57 AM EDT [...] mammogram and US as recommended by PCP. [facility]04-03-2025 Telephone encounter Note* Telephone Encounter [...] Godoy LPN July 10, 2024 7:48 AM [facility]04-03-2025 Miscellaneous Notes* Telephone Encounter - [...] 10, 2024 7:48 AM documented in this encounterUniversity Hospitals [facility]03-28-2025 NoteHNO ID: [id number] Author: ALBERTA CANDELARIA MA Service: ? Author Type: Outreach Manager Type: Progress Notes Filed: 07/04/2024 12:23 Note Text: Scan on 06/30/2024 7:24 AM by ProviderDanette PAHailyC: Consultation - Vascular Medicine/Vascular Surgery Scan on 06/30/2024 6:11 PM by Danette Houston PA-C: BENITEZ Candelaria [facility]03-28-2025 History of Present illness Narrative* Alberta Candelaria MA - 07/04/2024 12:15 PM EDT Scan on 06/30/2024 7:24 AM by Provider, OPAL Samaniego: Consultation - Vascular Medicine/Vascular Surgery Scan on 06/30/2024 6:11 PM by ProviderDanette PA-C: BENITEZ Candelaria MA documented in this encounterUniversity Hospitals [facility]03-24-2025 NoteHNO ID: [id number] Author: YAW SINGH MD Service: ? Author [...] (HCC) 01/03/2024 On dialysis and seeing Dr. Yari. Closed wedge compression fracture of T10 vertebra (HCC) 07/12/2023 Coronary 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 Seeing Dr. [...] 11/17/2020 Personal history of colonic polyps 12/27/2009 [employer]'s nodules 03/30/2023 Will try pamelor Pleural effusion 03/11/2021 Stable in f/u studies. Pressure ulcer of unspecified buttock, stage 2 ([facility]) 01/03/2024 Bilaterally. Primary insomnia 03/30/2023 S/P CABG [...] COLONOSCOPY W/BIOPSY SINGLE/MULTIPLE 02/22/2007 Diminutive polyp distal [id number] ECHO 01/08/2021 EGD 04/15/2020 HEART CATHETERIZATION 12/2018 [...] TONSILLECTOMY PRIMARY/SECONDARY Tonsillectomy TOT/SUB ESOPHAGECTOMY W/THORACOT 08/09/2020 [place] esophagectomy, jejunostomy tube placement TOTAL HIP REPLACEMENT Left 02/15/2024 Family History FAMILY HISTORY Problem Relation Age of Onset Cancer Mother OVARIAN AND THYROID CA Breast Cancer Mother Ischemic Heart Disease Father from Cerebral Hemmorrhage age 50 other (mva) Brother Cancer Sister Bone Marrow CA (more content not included)...[facility] 06-30-2024 History of Present illness Narrative* [...] kidney disease) stage 4, GFR 15-29 ml/min ([facility]) 01/03/2024 On dialysis and seeing Dr. Greenberg. Closed wedge compression fracture of T10 vertebra ([facility]) 07/12/2023 Coronary 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 Seeing Dr. Noland DDD (degenerative disc disease), lumbar 11/04/2019 Elevated blood sugar 03/11/2024 Esophageal adenocarcinoma ([facility]) 08/09/2020 Essential hypertension, benign GERD (gastroesophageal reflux disease) 07/12/2009 History of kidney stones 07/20/2014 Iron deficiency anemia due to chronic blood loss 05/25/2020 Iron malabsorption 05/25/2020 Kidney stone Kyphosis (acquired) (postural) 07/30/[address] 03/11/2024 DPA: Lacho (step daughter) Malignant neoplasm of lower third of esophagus ([facility]) 04/15/2020 Medicare annual wellness visit, subsequent 01/13/2021 Medical B eligibilty date 03/09/19 Date of last exam 01/13/2021 Mixed hyperlipidemia MRSA (methicillin resistant Staphylococcus aureus) 12/01/2016 treated with course of Linezolid beginning 10/29/16 Nonrheumatic aortic valve disorder On tube feeding diet 08/14/2020 History: 65 year old male s/p [place] esophagectomy, Pyloromyotomy, Jejunostomy tube placement for esophageal adenocarcinoma -Diet: Isosource 1.5 to 50 cc hour with 100 cc water flushes 8 times per day and Bene protein 3 times per day Removed 11/17/2020 Personal history of colonic polyps 12/27/2009 [employer]'s nodules 03/30/2023 Will try pamelor Pleural effusion [...] COLONOSCOPY W/BIOPSY SINGLE/MULTIPLE 02/22/2007 Diminutive polyp distal [id number] ECHO 01/08/2021 EGD 04/15/2020 HEART CATHETERIZATION 12/2018 [...] <AGE 11 Tonsillectomy TOT/SUB ESOPHAGECTOMY W/THORACOT 08/09/2020 [place] esophagectomy, jejunostomy tube placement TOTAL HIP [...] (FLONASE) 50 mcg/actuation nasal spray Use 1 [place] in each nostril once daily. (Patienttaking differently: Use 1 [place] in each nostril as needed.) ferrous sulfate [...] which included preparing to see the patient, [id number] patient care, completing clinical documentation, performing a medically appropriate examination, counseling and educating the patient/family/caregiver and ordering medications, tests, or procedures. SENSITIVE EXAMINATION CONSENT: The sensitive examination was discussed with the Patient or Patient's Authorized Arrt Technologist. Asapplicable, any other physician, advance practice provider, medical student, or other health professional student that will be observing or involved in the sensitive examination for educational or training purposes was discussed with the Patient or Authorized Arrt Technologist. The Patient or Authorized Arrt Technologist has agreed to proceed with the sensitive examination. Yaw Singh MD documented in this encounterUniversity Hospitals [facility]03-24-2025 Consult note Author Antwan Pettit [facility] Note Date/Time June 30, 2024 9:3 5am [facility] Medical Records Department [address] [place] [address] Anesthesia Postop Eval I 06/30/24 0933 MR#: [id number] Acct: [id number] Name: JACOB LANDA Rep #:[id number] : 1955 69 From: Antwan Pettit CRNA PCP: Dr. Yaw Singh MD Status:REG MIGDALIAC Y Race: C Location: [place] [address] Anesthesia: Postop Eval I Current Vital Signs [...] CRNA Cosigner Signature: Date CC: ~ Signed [facility] Work Phone: 1(300) 225-925103-24-2025 Discharge summary Author Nikita Jackson [facility] Note Date/Time June 30, 2024 9:1 6am [facility] Medical Records Department [address] [place] [address] Instructions for Home/Discharge Instructions 06/30/2413 MR#: [id number] Acct: [id number] Name: JACOB LANDA Rep #:[id number] : 1955 69 From: Nikita Jackson MD PCP: Dr. Yaw Singh MD Status:REG SD Discharge Instructions Diet Discharge Diet: No restrictions [...] Care Provider: Yaw Singh Instructions Print Language: Amharic Discharge Orders/Prescriptions Prescriptions: New oxycodone 5 mg [...] CC: Dr. Yaw Singh MD ~ Signed [facility] Work Phone: 1(857) 800-941603-24-2025 Consult note [facility] Medical Records Department [address] [place] [address] Anesthesia Postop Eval II 06/30/24 1015 MR#: [id number] Acct: [id number] Name: JACOB LANDA Rep #:[id number] : 1955 69 From: Tawny Covington PCP: Dr. Yaw Singh MD Status:REG SDC Y Race: C Location: [place] [address] Anesthesia Postop Eval I Sum Postop Eval Completion status Anesthesia document: Postop Eval 1 completed: Yes Anesthesia Postop Eval I Summary Anesthesia Postop Eval I Summary: Anesthesia Postop Eval I: Assessment Summary Airway patent Yes 06/30/24 09:34 DISTRICT MANAGER POSTAL SERVICE.PKEL Spontaneous unlabored Yes 06/30/24 09:34 DISTRICT MANAGER [employer]AL SERVICE.PKEL respirations Mental status Awake,Calm 06/30/24 09:34 DISTRICT MANAGER [employer].PKEL nausea No 06/30/24 09:34 DISTRICT MANAGER [employer]AL SERVICE.PKEL Vomiting No 06/30/24 09:34 DISTRICT MANAGER POSTAL SERVICE.PKEL Anesthesia Postop Eval I: Fluid Summary Crystalloid volume administer 250 06/30/24 09:34 DISTRICT MANAGER POSTAL SERVICE.PKEL (ml) Colloids volume administered ( ml) Blood Product volume administered (ml) Total IV fluid infused 250 06/30/24 09:34 DISTRICT MANAGER [employer]AL SERVICE.PKEL Anesthesia Postop Eval I: Summary Notes Anesthesia Complication Yes 06/30/24 09:34 DISTRICT MANAGER [employer]AL SERVICE.PKEL Anesthesia Complication right nares with 06/30/24 09:34 DISTRICT MANAGER POSTAL SERVICE.PKEL Comment: epistaxis from npa Post-operative progress note Anesthesia: Postop Eval II Evaluation Mental status: Awake Pain Level: 2 nausea: No Vomiting: No 06/30/24 1016 a> Date _ Tawny Santos Signature: Date CC: ~ Signed [facility]03-24-2025 Consult note [facility] Medical Records Department [address] [place] [address] Anesthesia Postop Eval I 06/30/2433 MR#: [id number] Acct: [id number] Name: JACOB LANDA Rep #:[id number] : 1955 69 From: Antwan Pettit CRNA PCP: Dr. Yaw Singh MD Status:REG MIGDALIA Y Race: C Location: [place] [address] Anesthesia: Postop Eval I Current Vital Signs [...] Eval 1 completed: Yes 06/30/24 0935 y DISTRICT MANAGER POSTAL SERVICE> Date _ Antwanlavelle Alvaradoley DISTRICT MANAGER POSTAL SERVICE Cosigner Signature: Date CC: ~ Signed [facility]03-24-2025 Consult note Author Guillermo [facility] Note Date/Time June 30, 2024 7:3 4am [facility] Medical Records Department [address] [place] [address] Pre-Anesthesia Evaluation 06/30/24 0723 MR#: [id number] Acct: [id number] Name: JACOB LANDA Rep #:[id number] : 1955 69 From: Guillermo Eckert MD PCP: Dr. Yaw Singh MD Status:REG [facility] Y Race: C Location: [place] [address] ASA Classification* ASA Classification ASA Classification: 3 [...] Arteriovenous Fistula,Creation Anesthesia History Anesthesia History - services manager: Anesthesia History - services manager Hx Hospitalization Yes: KIDNEY PROBLEMS, 06/02/24 10:59 [...] take am of surgery PONV PONV - services manager: PONV - services manager Female No 06/02/24 10:59 HX of Motion [...] 06/30/24 07:02 Respiratory Assessment Respiratory Assessment - services manager: Respiratory Tract Infection Hx - services manager Hx Respiratory Tract Infection No 06/02/24 10:59 STOP Sleep Apnea STOP Sleep Apnea - services manager: STOP Sleep Apnea - services manager Hx Hypertension Yes: CONTROLLED ON MEDS 06/02/24 [...] Tobacco Use History Tobacco Use History - services manager: Tobacco Use History - services manager Tobacco Use Smoking Status Never smoker 06/02/24 10:59 Hx Tobacco Use No 06/02/24 10:59 Years Smoking Packs Smoked per Day Smoking Cessation Date was within the last 15 years Hx Smoking Cessation Date Hx Smoking Cessation Counseling Hematologic Medial History Hematologic Hx - services manager: Hematologic Medical Hx - block handler Hx of Blood Transfusion No 06/02/24 10:59 [...] confused, unrespo /Reproduction History /Reproductive History - services manager: /Reproductive Hx- services manager Hx Now No 06/02/24 10:59 Gestational Age [...] Esophageal carcinoma Atherosclerosis of coronary artery of [place] heart without angina pectoris 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 Essential (primary) hypertension Non-rheumatic aortic stenosis Syncope and collapse Hyperlipidemia Atherosclerotic heart disease of [place] coronary artery with other forms of angina [...] and no additional complaints, except as documented. 06/30/24733 <Electronically signed by Guillermo malin MD> Date _ Guillermo Eckert MD Cosigner Signature: Date CC: ~ Signed [facility] Work Phone: 1(177) 136-492203-24-2025 History and physical note Author Nikita Jackson [facility] Note Date/Time June 30, 2024 7:1 7am [facility] Medical Records Department [facility] [place] [address] History & Physical Exam 06/30/24713 MR#: [id number] Acct: [id number] Name: JACOB LANDA Rep #:[id number] : 1955 69 From: Nikita Jackson MD PCP: Dr. Yaw Singh MD Status:REG [facility] Location: [place] [address] HPI - General HPI Narrative JACOB LANDA, is a 69 M who presents with ESRD currently on dialysis after LEELA last year with no recovery of renal function. He had vein mapping that revealed adequate left upper arm cephalic, basilic veins. [facility] Medical History Wears glasses Cancer Cancer Pressure [...] Esophageal carcinoma Atherosclerosis of coronary artery of [place] heart without angina pectoris 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 Essential (primary) hypertension Non-rheumatic aortic stenosis Syncope and collapse Hyperlipidemia Atherosclerotic heart disease of [place] coronary artery with other forms of angina [...] PLAN: -left upper arm fistula creation 06/30/24716 <Electronically signed by Nikita Jackson MD> Cosigner Signature (if applicable): CC: Dr. Nikita Jackson MD; Dr. Yaw Singh MD~ Signed [facility] Work Phone: 1(536) 614-290403-24-2025 Discharge summary [facility] Medical Records Department [address] [place] [address] Instructions for Home/Discharge Instructions 06/30/24 0913 MR#: [id number] Acct: [id number] Name: JACOB LANDA Rep #:[id number] : 1955 69 From: Nikita Jackson MD PCP: Dr. Yaw Singh MD Status:REG [facility] Discharge Instructions Diet Discharge Diet: No restrictions [...] Care Provider: Yaw Singh Instructions Print Language: Amharic Discharge Orders/Prescriptions Prescriptions: New oxycodone 5 mg [...] can be placed): Home, Self Care 06/30/24 09Nikita Jackson MD CC: Dr. Yaw Singh MD ~ Signed [facility]03-24-2025 Evaluation note* Diagnosis Onset Date Resolution Status Admit Date ESRD (end stage renal diseas e) on dialysis chronic June 30, 2024 6:45am AV fistula acute July 22 2:11pm [facility] Work Phone: 1(902) 649-482003-24-2025 Evaluation note* Diagnosis Onset Date Resolution Status Admit Date ESRD (end stage renal diseas e) on dialysis chronic June 30, 2024 6:45am AV fistula acute July 22 2:11pm AV fistula acute September 02, 2024 1:47pm [facility] Work Phone: 1(324) 114-828303-24-2025 Evaluation note* Diagnosis Onset Date Resolution Status Admit Date ESRD (end stage renal diseas e) on dialysis chronic June 30, 2024 6:45am AV fistula acute July 22 2:11pm AV fistula acute September 02, 2024 1:47pm Tunneled central venous catheter present acute October 15, 2024 9:01am [facility] Work Phone: 1(866) 281-539203-24-2025 Consult note [facility] Medical Records Department [address] [place] [address] Pre-Anesthesia Evaluation 06/30/24 0723 MR#: [id number] Acct: [id number] Name: JACOB LANDA Rep #:[id number] : 1955 69 From: Guillermo Eckert MD PCP: Dr. Yaw Singh MD Status:REG SDC Y Race: C Location: [place] [address]1 ASA Classification* ASA Classification ASA Classification: 3 [...] Arteriovenous Fistula,Creation Anesthesia History Anesthesia History - services manager: Anesthesia History - services manager Hx Hospitalization Yes: KIDNEY PROBLEMS, 06/02/24 10:59 [...] take am of surgery PONV PONV - services manager: PONV - services manager Female No 06/02/24 10:59 HX of Motion [...] 06/30/24 07:02 Respiratory Assessment Respiratory Assessment - services manager: Respiratory Tract Infection Hx - services manager Hx Respiratory Tract Infection No 06/02/24 10:59 STOP Sleep Apnea STOP Sleep Apnea - services manager: STOP Sleep Apnea - services manager Hx Hypertension Yes: CONTROLLED ON MEDS 06/02/24 [...] Tobacco Use History Tobacco Use History - services manager: Tobacco Use History - services manager Tobacco Use Smoking Status Never smoker 06/02/24 10:59 Hx Tobacco Use No 06/02/24 10:59 Years Smoking Packs Smoked per Day Smoking Cessation Date was within the last 15 years Hx Smoking Cessation Date Hx Smoking Cessation Counseling Hematologic Medial History Hematologic Hx - services manager: Hematologic Medical Hx - block handler Hx of Blood Transfusion No 06/02/24 10:59 [...] confused, unrespo /Reproduction History /Reproductive History - services manager: /Reproductive Hx- services manager Hx Now No 06/02/24 10:59 Gestational Age (in weeks): EDC: Hx Hx Para Hx Section SAB No 06/02/24 10:59 Active Medications Active Medications: Current Medications Generic Name Dose Route Start Last Admin Trade Name [place] PRN Reason Stop Dose Admin Cefazolin Sodium 2 gm/ N/A 20 mls @ 400 mls/hr 06/30/24 07:30 IV 06/30/24 07:32 [facility] History Wears glasses Cancer Cancer Pressure [...] Esophageal carcinoma Atherosclerosis of coronary artery of [place] heart without angina pectoris 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 Essential (primary) hypertension Non-rheumatic aortic stenosis Syncope and collapse Hyperlipidemia Atherosclerotic heart disease of [place] coronary artery with other forms of angina [...] no additional complaints, except as documented. 06/30/24 07 kimo MANNING> Date _ Guillermo Eckert MD Cosigner Signature: Date CC: ~ Signed [facility]03-24-2025 History and physical note [facility] Medical Records Department [address] [place] [address] History & Physical Exam 06/30/24 0714 MR#: [id number] Acct: [id number] Name: JACOB LANDA Rep #:[id number] : 1955 69 From: Nikita Jackson MD PCP: Dr. Yaw Singh MD Status:REG [facility] Location: [place] [address] HPI - General HPI Narrative JACOB LANDA, is a 69 M who presents with ESRD currently on dialysis after LEELA last year with no recovery of renal function. He had vein mapping that revealed adequate left upper arm cephalic, basilicveins. [facility] Medical History Wears glasses Cancer Cancer Pressure [...] Esophageal carcinoma Atherosclerosis of coronary artery of [place] heart without angina pectoris 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 Essential (primary) hypertension Non-rheumatic aortic stenosis Syncope and collapse Hyperlipidemia Atherosclerotic heart disease of [place] coronary artery with other forms of angina [...] Jackson MD; Dr. Yaw Singh MD~ Signed [facility]03-24-2025 [facility] Medical Records Department [address] [place] [address] History Physical Exam 06/30/2414 MR#: [id number] Acct: [id number] Name: JACOB LANDA Rep #: [id number] : 1955 69 From: Nikita Jackson MD PCP: Dr. Yaw Singh MD Status:[facility] Location: [place] [address] HPI - General HPI Narrative JACOB LANDA, is a 69 M who presents with ESRD currently on dialysis after LEELA last year with no recovery of renal function. He had vein mapping that revealed adequate left upper arm cephalic, basilic veins. [facility] Medical History Wears glasses Cancer Cancer Pressure [...] Esophageal carcinoma Atherosclerosis of coronary artery of [place] heart without angina pectoris 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 Essential (primary) hypertension Non-rheumatic aortic stenosis Syncope and collapse Hyperlipidemia Atherosclerotic heart disease of [place] coronary artery with other forms of angina [...] 81 mg PO BID #0 tabs 02/17/24 03/07/01 Rx acetaminophen 500 mg tablet 1,000 mg [...] dysuria or hematuria M (more content not included)...[facility]03-14-2025 Telephone encounter Note* Telephone Encounter - Hill Obrien LISW - 06/20/2024 10:44 AM EDT Call placed to pt to complete the scheduled kidney transplant psychosocial evaluation. No answer. Left message requesting pt return my call. KATHERYN Dye LISW-S, [facility] Transplant Government Affairs Researcher [facility] Work Phone: 1([phone]) 359-565903-14-2025 Miscellaneous Notes* Telephone Encounter - Hill Obrien LISW - 06/20/2024 10:44 AM EDT Call placed to pt to complete the scheduled kidney transplant psychosocial evaluation. No answer. Left message requesting pt return my call. KATHERYN Dye LISW-S, [facility] Transplant Government Affairs Researcher documented in this encounterUniversity Hospitals [facility]03-05-2025 Instructions* Patient Instructions* Ezekiel Shah [...] will be scheduled for you at a [facility] facility: CARDIAC: EKG-Today Cardiac Stress Test-Will schedule after discussion with your patient accounts specialist CANCER SCREENING: PSA with Evaluation-with labs today ADDITIONAL CONSULTS Cardiology-Will need clearance from your patient accounts specialist Oncology-Will need clearance from your oncologist Imaging Studies: Nothing further Miscellaneous Items: Labs-Today Outside test results should be faxed to [phone]. Please review the kidney transplant educational materials on line at [email or web address] Sign-in: Kidney To check on your status of your evaluation, please contact your coordinator, Wendy Christian RN [phone]. Ezekiel Shah RN Kidney/Pancreas Pre-Side Boss [facility] documented in this encounterUniversity Hospitals [facility]03-05-2025 NoteHNO ID: [id number] Author: LACHO PA PA-C Service: ? Author Type: Physician Network Field Engineer Type: Progress Notes Filed: 06/13/2024 16:50 Note Text: [facility] Transplant Evaluation CC: Consultation for Kidney transplant evaluation. Referred by: Maria Victoria Scott [facility] [facility] [address] [address] I will communicate with the referring provider [...] 03/28/2024 through a TDC-plan for aVF on Sunday06/16/2024-Anetet Patient presents ambulatory with cane. Does patient [...] (98.5 ?F) (Temporal) Ht 177.8 cm (5' 10) Wt 73.9 kg (162 lb 14.7 oz) [...] kidney disease) stage 4, GFR 15-29 ml/min ([facility]) 01/03/2024 On dialysis and seeing Dr. Greenberg. Closed wedge compression fracture of T10 vertebra (HCC) 07/12/2023 Coronary 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 Seeing Dr. [...] 11/17/2020 Personal history of colonic polyps 12/27/2009 [employer]'s nodules 03/30/2023 Will try pamelor Pleural effusion [...] could be st (more content not included)... [facility]03-05-2025 History of Present illness Narrative* Lacho Pa PA-C - 06/11/2024 1:19 PM EST [facility], [facility] [place] [facility] Transplant Evaluation CC: Consultation for Kidney transplant evaluation. Referred by: Maria Victoria Scott [facility]0 Robi Manuel [address] [address] I will communicate with the referring provider [...] and radiation with carboplatin and paclitaxel 05/2020-06/2020 [place] esophagectomy 08/09/2020 Adjuvant nivolumab DDD BPH [...] (98.5 F) (Temporal) Ht 177.8 cm (5' 10) Wt 73.9 kg (162 lb 14.7 oz) [...] kidney disease) stage 4, GFR 15-29 ml/min ([facility]) 01/03/2024 On dialysis and seeing Dr. Greenberg. Closed wedge compression fracture of T10 vertebra ([facility]) 07/12/2023 Coronary 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 Seeing Dr. Noland DDD (degenerative disc disease), lumbar 11/04/2019 Elevated blood sugar 03/11/2024 Esophageal adenocarcinoma ([facility]) 08/09/2020 Essential hypertension, benign GERD (gastroesophageal reflux disease) 07/12/2009 History of kidney stones 07/20/2014 Iron deficiency anemia due to chronic blood loss 05/25/2020 Iron malabsorption 05/25/2020 Kidney stone Kyphosis (acquired) (postural) 07/30/[address] 03/11/2024 DPA: Lacho (step daughter) Malignant neoplasm of lower third of esophagus ([facility]) 04/15/2020 Medicare annual wellness visit, subsequent 01/13/2021 [...] 11/17/2020 Personal history of colonic polyps 12/27/2009 [employer]'s nodules 03/30/2023 Will try pamelor Pleural effusion [...] COLONOSCOPY W/BIOPSY SINGLE/MULTIPLE 02/22/2007 Diminutive polyp distal [id number] ECHO 01/08/2021 EGD 04/15/2020 HEART CATHETERIZATION 12/2018 [...] (FLONASE) 50 mcg/actuation nasal spray Use 1 [place] in each nostril once daily. (Patienttaking differently: Use 1 [place] in each nostril as needed.) ferrous sulfate [...] Alive breast cancer Fa at age 49 MD Willem Pichardo Sis Khushbu Sis Mariella Sis Marilou Alive [...] Not received, patient encouraged to obtain Ezekiel Eppich, RN Exclusion criteria for HCV organs (IF [...] with educational slide packet and handout titled Transplantation of Hepatitis C Viremic Organs into Hepatitis C Negative Recipients. The risks of HCV transmission post-transplant, fibrosing [...] (98.5 F) (Temporal) Ht 177.8 cm (5' 10) Wt 73.9 kg (162 lb 14.7 oz) [...] are not limited to: bleeding, infection, , MD, DVT, PE, CVA, risk of damage to [...] case, find addendum below: documented in this encounterUniversity Hospitals Portage [facility] Center03-05-2025 NoteHNO ID: [id number] Author: ROBER IGLESIAS RN Service: ? Author [...] about Kidney Allocation Policy -Directions to access [facility]. -Informed Consent for Transplant Program Participation patient education packet -National Kidney Registry pamphlet -Covid-19 Vaccination for Transplant Candidates Method of Instruction: Group class instruction Written instruction/Handouts Verbal instruction Patient/Family Response: Patient asked appropriate questions, which were answered satisfactorily. Follow-Up Plan: Complete - No need for follow-up Referral/Recommendation: None Rober Iglesias RN Pre-Transplant CoordinatorMary [facility]03[facility] History of Present illness Narrative* Rober [...] about Kidney Allocation Policy -Directions to access [facility]'s data through the [facility] website. -Informed Consent for Transplant Program Participation patient education packet -National Kidney Registry pamphlet -Covid-19 Vaccination for Transplant Candidates Method of Instruction: Group class instruction Written instruction/Handouts Verbal instruction Patient/Family Response: Patient asked appropriate questions, which were answered satisfactorily. Follow-Up Plan: Complete - No need for follow-up Referral/Recommendation: None Rober Iglesias RN Pre-Side Boss documented in this encounterUniversity Hospitals Portage Medical Center03-05-2025 Instructions* Patient Instructions* Vicente Addison [...] getting sauces on the side, asking your sql server consultant to have less salt added to your [...] of exercise per week. documented in this encounterUniversity Hospitals Portage Medical Center03-05-2025 History of Present illness Narrative* Vicente Addison RD - 06/11/2024 9:45 AM EST AMBULATORY [...] Readings: Date: Ht: 06/11/2024 177.8 cm (5' 10) Last 15 Encounter Wt Readings: Date: Wt: [...] getting sauces on the side, asking your sql server consultant to have less salt added to your meal, and limit your portion. Eggs, yogurt, nuts/nut butters, seeds, meat/fish/poultry, cheese, cottage cheese, and yogurt all contain protein. If on dialysis, your body needs more protein. Include protein each time you eat. Consider using a protein shake if this is suggested by your dialysis dietitian (such as Bryn or [employer] Renal). If not on dialysis, your body [...] TIME: 10:45 AM PAGER: documented in this encounterUniversity Hospitals Portage Medical Center03-05-2025 NoteHNO ID: [id number] Author: VICENTE ADDISON RD Service: ? Author [...] Readings: Date: Ht: 06/11/2024 177.8 cm (5' 10) Last 15 Encounter Wt Readings: Date: Wt: [...] getting sauces on the side, asking your sql server consultant to have less salt added to your meal, and limit your portion. Eggs, yogurt, nuts/nut butters, seeds, meat/fish/poultry, cheese, cottage cheese, and yogurt all contain protein. If on dialysis, your body needs more protein. Include protein each time you eat. Consider using a protein shake if this is suggested by your dialysis dietitian (such as Bryn or [employer] [facility]). If not on dialysis, your body [...] patient nutrition services after surgery. Referred/Supervised by: Transplant/Mo Consult Billing Type: Ambulatory Group/30 min 1 unit SIGNATURE: Vicente Addison RD PATIENT NAME: Jacob Ramirezday DATE: June 11, 2024 TIME: 10:45 AM PAGER:[facility]03-05-2025 NoteEducation (DTBAMN) JACOB LANDA ([id number]) 1955 M Date Time Provider Department 06/11/24 [...] (FLONASE) 50 mcg/actuation nasal spray Use 1 [place] in each nostril once daily. - ferrous [...] for Encounter Date Provider Department Center 06/11/2024 [id number], MARLEY DTBAMN Main - A Bld Encounter Status:Closed by VICENTE ADDISON on 06/11/24[facility] 06-11-2024 NoteHNO ID: [id number] Author: GRABIEL RUFF MD Service: ? Author Type: Physician Type: Progress Notes Filed: 06/13/2024 11:56 Note Text: [facility] [place] [facility] Transplant Evaluation CC: Consultation for Kidney transplant evaluation. Referred by: Maria Victoria Scott [address] [facility] [address] [facility] [address] I will communicate with the referring provider [...] and radiation with carboplatin and paclitaxel 05/2020-06/2020 [place] esophagectomy 08/09/2020 Adjuvant nivolumab DDD BPH kidney stones left hip replacement 02/15/2024. Hematology note mentions kidney biopsy in October of 2023 with acute tubular necrosis and acute tubulointerstitial nephritis-results not in CE. Pt initiated on hemodialysis 03/28/2024 through a TDC-plan for aVF on Sunday06/16/2024-[place] Patient presents ambulatory with cane. Does patient [...] vertebra (HCC) 07/12/2023 Coronary 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 Seeing Dr. 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 of colonic polyps 12/27/2009 Hector' (more content not included)...[facility]03-05-2025 History of Present illness Narrative* Grabiel Ruff MD - 06/11/2024 9:30 AM EST [facility] Transplant Evaluation CC: Consultation for Kidney transplant evaluation. Referred by: Maria Victoria Scott [address] [address] I will communicate with the referring provider by letter and/or shared electronic medical record. 69-year-old male here for pretransplant evaluation. End-stage renal disease apparently due to hypertension, has been on renal replacement therapy sinceDecember of this year. His past medical history is significant for significant coronary disease andvalvular heart disease he is status post CABG in 2003, recurrent coronary disease status post PCI in [...] and radiation with carboplatin and paclitaxel 05/2020-06/2020 [place] esophagectomy 08/09/2020 Adjuvant nivolumab DDD BPH [...] kidney disease) stage 4, GFR 15-29 ml/min ([facility]) 01/03/2024 On dialysis and seeing Dr. Greenberg. Closed wedge compression fracture of T10 vertebra ([facility]) 07/12/2023 Coronary 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 Seeing Dr. Noland DDD (degenerative disc disease), lumbar 11/04/2019 Elevated blood sugar 03/11/2024 Esophageal adenocarcinoma ([facility]) 08/09/2020 Essential hypertension, benign GERD (gastroesophageal reflux disease) 07/12/2009 History of kidney stones 07/20/2014 Iron deficiency anemia due to chronic blood loss 05/25/2020 Iron malabsorption 05/25/2020 Kidney stone Kyphosis (acquired) (postural) 07/30/[address] 03/11/2024 DPA: Lacho (step daughter) Malignant neoplasm of lower third of esophagus ([facility]) 04/15/2020 Medicare annual wellness visit, subsequent 01/13/2021 [...] 11/17/2020 Personal history of colonic polyps 12/27/2009 [employer]'s nodules 03/30/2023 Will try pamelor Pleural effusion 03/11/2021 Stable in f/u studies. Pressure ulcer of unspecified buttock, stage 2 ([facility]) 01/03/2024 Bilaterally. Primary insomnia 03/30/2023 S/P CABG [...] COLONOSCOPY W/BIOPSY SINGLE/MULTIPLE 02/22/2007 Diminutive polyp distal [id number] ECHO 01/08/2021 EGD 04/15/2020 HEART CATHETERIZATION 12/2018 [...] (FLONASE) 50 mcg/actuation nasal spray Use 1 [place] in each nostril once daily. (Patienttaking differently: Use 1 [place] in each nostril as needed.) ferrous sulfate [...] Alive breast cancer Fa at age 49 MD Willem Pichardo Sis Khushbu Sis Mariella Sis Marilou Alive [...] with educational slide packet and handout titled Transplantation of Hepatitis C Viremic Organs into Hepatitis C Negative Recipients. The risks of HCV transmission post-transplant, fibrosing [...] (98.5 F) (Temporal) Ht 177.8 cm (5' 10) Wt 73.9 kg (162 lb 14.7 oz) [...] MD This note was partially generated using [employer] voice recognition system, and there may be some incorrect words, spellings, and punctuation that were not noted in checking the note before saving. documented in this encounterUniversity Hospitals Portage Medical Center03-03-2025 NoteHNO ID: [id number] Author: ALBERTA CANDELARIA MA Service: ? Author Type: Outreach Manager Type: Progress Notes Filed: 06/09/2024 15:53 Note Text: Scan on 06/06/2024 8:40 AM by Provider, External, PA-C: Hematology Scan on 06/06/2024 9:42 AM by Provider, External, PA-C: Chemistry Alberta Candelaria [facility]03-03-2025 History of Present illness Narrative* Albreta Candelaria MA - 06/09/2024 3:52 PM EST Scan on 06/06/2024 8:40 AM by ProviderDanette PA-C: Hematology Scan on 06/06/2024 9:42 AM by Danette Houston PA-C: Chemistry Alberta Candelaria MA documented in this encounterUniversity Hospitals Portage Medical Center02-28-2025 NoteHNO ID: [id number] Author: NISHA SCHULTZ, RN Service: ? Author Type: Registered Nurse Type: Progress Notes Filed: 06/06/2024 13:56 Note Text: Kidney PreTransplant crm architect Referral source:Dialysis fax Behavioral Health Technician: Maria Victoria Scott2-18-25 CT abd/pel:Date done 04-17-24 ECHO/EF:Date 09-21-23/ 56% Kidney Disease Cause: Hx HTN, no biopsy Different from intake: Ezekiel discussed with Dr Lepe. OK to come in as long as can swallow pills, which patient said he couldMary [facility]02-[facility] History of Present illness Narrative* Nisha Schultz RN - 06/06/2024 1:42 PM EST Kidney PreTransplant crm architect Referral source:Dialysis fax Behavioral Health Technician: Maria Victoria Scott2-18-25 CT abd/pel:Date done 04-17-24 ECHO/EF:Date 09-21-23/ 56% Kidney Disease Cause: Hx HTN, no biopsy Different from intake: Ezekiel discussed with Dr Lepe. OK to come in as long as can swallow pills, which patient said he could documented in this encounterUniversity Hospitals Portage Medical Center02-28-2025 NoteHNO ID: [id number] Author: KRYSTINA QUINONES LPN Service: ? Author Type: LICENSED NURSE Type: Progress Notes Filed: 06/06/2024 09:02 Note Text: Scan on 06/06/2024 8:40 AM by ProviderDanette PA-C: HematologyMary [facility]02-28-2025 History of Present illness Narrative* Krystina Quinones LPN - 06/06/2024 9:02 AM EST Scan on 06/06/2024 8:40 AM by Provider, OPAL Samaniego: Hematology documented in this encounterUniversity Hospitals Portage Medical Center02-18-2025 Telephone encounter Note * Telephone Encounter - Susan Meredith - 05/27/2024 10:18 AM EST KIDNEY TRANSPLANT REFERRAL (enter above which organ the patient needs; Kidney, Pancreas or Kidney/Pancreas) Is this referral for a Safety Net or HIV Patient? No (Safety Net = Pt needing an additional transplant within 12 months for any organ) Jacob Landa [id number] Spoke with: Patient Referral Source: (Tx Access; Online; Fax; Internal or Self-Referral) Fax MEDICAL PROFESSIONALS / PHYSICIAN: MARIA VICTORIA SCOTT (see's at [...] referral for transplant to your (OOS) Medicaid case work aide? NA If the patient has Medicare A/B as their primary insurance please ask the patient for their secondary insurance coverage. Height: 5'9 Weight: 162 Lbs BMI: 23.9 Have you [...] Dialysis: Yes. If yes, date and location: [facility] Days: Dialysis start date: 03/28/2024 Dialysis Records scanned in [employer] on 05/26/24 Do you have Diabetes? No [...] and 1/3 of stomach removed all at [facility]. Had Radiation and Chemo last treatment approx June or July 2020. Hx of Hypertension? Yes Hx of MD/Heart Attack? No Hx of TIA/CVA or Stroke? No Are you on a blood thinner? Yes If YES which medication are you on? Baby aspirin Have you had a CABG or STENTS? Yes. If yes, date and location: CABG 5x done in 2002 at [facility] Hrt Stents 6x done about 2014 last done 2019 done at [facility] and aorta stent in [facility] Have you ever had a Stress Test? Yes. If yes, date and location: 01/08/2021 (see scanned doc in [employer] 01/27/21) done at [facility] Have you ever had an Echo? [...] MyCHART Is the patient signed up for [employer]? No-patient doesn't have an email and not [...] requested from E-Health? No see epic and CGiuliana. Route the referral to the Kidney Txp social services designee, Nisha Schultz. Susan Meredith [facility]02-18-2025 Miscellaneous Notes* Telephone Encounter - Susan Meredith - 05/27/2024 10:18 AM EST KIDNEY TRANSPLANT REFERRAL (enter above which organ the patient needs; Kidney, Pancreas or Kidney/Pancreas) Is this referral for a Safety Net or HIV Patient? No (Safety Net = Pt needing an additional transplant within 12 months for any organ) Jacob Landa [id number] Spoke with: Patient Referral Source: (Tx Access; Online; Fax; Internal or Self-Referral) Fax MEDICAL PROFESSIONALS / PHYSICIAN: MARIA VICTORIA SCOTT (see's at [...] referral for transplant to your (O) Medicaid case work aide? NA If the patient has Medicare A/B as their primary insurance please ask the patient for their secondary insurance coverage. Height: 5'9 Weight: 162 Lbs BMI: 23.9 Have you [...] Dialysis: Yes. If yes, date and location: [facility] [place] Days: Dialysis start date: 03/28/2024 Dialysis [facility] on 05/26/24 Do you have Diabetes? [...] and 1/3 of stomach removed all at [facility]. Had Radiation and Chemo last treatment approx June or July 2020. Hx of Hypertension? Yes Hx of MD/Heart Attack? No Hx of TIA/CVA or Stroke? No Are you on a blood thinner? Yes If YES which medication are you on? Baby aspirin Have you had a CABG or STENTS? Yes. If yes, date and location: CABG 5x done in 2002 at [facility] Hrt Stents 6x done about 2014 last done 2018 done at [facility] and aorta stent in [facility] Have you ever had a Stress Test? Yes. If yes, date and location: [facility] Have you ever had an Echo? Yes. If yes, date and location: 09/21/2023 (see [facility]) Have you ever had a Cardiac Cath? Yes. If yes, date and location: 12/31/2018 CT Abdomen/Pelvis: Yes. If yes, date and location: 04/17/2024 (see [facility]) Colonoscopy: Yes. If yes, date and location: 06/01/2020 (see [facility]) Hx of Lupus? No Sickle Cell Trait or Disease: N/A Have you had any prior surgeries? Yes - Partial hip replaced (L) in Feb 2024, Tonsils removed as a child, port in chest uses for dialysis at this time. Do you have a potential living donor? No [employer] Is the patient signed up for [employer]? No-patient doesn't have an email and not computer savvy. If YES - send patient the Kidney/Pancreas New Referral Message. If NO - obtain their email address AND send [employer]Chart sign up information: email address: No e-mail address on record - No Email Is the patient okay with having a Virtual Appt: No - no email and not computer savvy. Have records been retrieved from Care Everywhere: Yes. Have records been requested from [facility]? No see epic and C.E. Route the referral to the Kidney Txp social services designee, Nisha Schultz. Susan Meredith documented in this encounterUniversity Hospitals Portage Medical Center01-30-2025 Telephone encounter Note * Telephone Encounter - Erin Du LPN - 05/08/2024 8:36 AM EST Patient notified and voices understanding. Erin Du LPN [facility]01-30-2025 Miscellaneous Notes* Telephone Encounter - Erin Du LPN - 05/08/2024 8:36 AM EST Patient notified and voices understanding. Erin Du LPN * Telephone Encounter - Richard Jenkins DO - 05/07/2024 5:24 PM EST Can let him know the MRI scan shows no evidence of cancer in his back. Follow-up as scheduled. Richard Jenkins DO documented in this encounterUniversity Hospitals Portage Medical Center01-29-2025 Telephone encounter Note * Telephone Encounter - Richard Jenkins DO - 05/07/2024 5:24 PM EST Can let him know the MRI scan shows no evidence of cancer in his back. Follow-up as scheduled. Richard Jenkins DO [facility]01-29-2025 History of Present illness Narrative* [...] PATIENT PRESENTS WITH AN IMPLANTABLE OR ATTACHED PRAWN TRAWLER HAND: No ALLERGIES: Reviewed and unchanged CONTRAST ALLERGY: NO. EXAM: MRI - CONTRAST TYPE: GROUP II PERIPHERAL IV DATA: Ambulatory: A peripheral IV was started in the Right antecubital site with a Angio cath: 24 gauge. RADIOLOGY DEPARTMENT: MR; Exam(s) Completed: Spine: Thoracic spine SIGNATURE: MIRIAM Yu) PATIENT NAME: Jacob Landa DATE: May 07, 2024 TIME: 2:47 PM documented in this encounterUniversity Hospitals Portage Medical Center01-29-2025 NoteHNO ID: [id number] Author: MARILEE BOSCH RT(R) Service: ? Author [...] PATIENT PRESENTS WITH AN IMPLANTABLE OR ATTACHED PRAWN TRAWLER HAND: No ALLERGIES: Reviewed and unchanged CONTRAST ALLERGY: NO. EXAM: MRI - CONTRAST TYPE: GROUP II PERIPHERAL IV DATA: Ambulatory: A peripheral IV was started in the Right antecubital site with a Angio cath: 24 gauge. RADIOLOGY DEPARTMENT: MR; Exam(s) Completed: Spine: Thoracic spine SIGNATURE: Marilee Bosch, RT(R) PATIENT NAME: Jacob Landa DATE: May 07, 2024 TIME: 2:47 [facility]01-29-2025 NoteHNO ID: [id number] Author: EDWIN MONTES APRN.LIFE MANAGEMENT TEACHER Service: ? Author Type: Nurse Practitioner Type: [...] vertebra (HCC) 07/12/2023 Coronary 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 Seeing Dr. 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 03/30/2023 Will try pamelor Pleural effusion 03/11/2021 Stable in f/u studies. Pressure ulcer of unspecified buttock, stage 2 ([facility]) 01/03/2024 Bilaterally. Primary insomnia 03/30/2023 S/P CABG [...] COLONOSCOPY W/BIOPSY SINGLE/MULTIPLE 02/22/2007 Diminutive polyp distal [id number] ECHO 01/08/2021 EGD 04/15/2020 HEART CATHETERIZATION 12/2018 [...] (FLONASE) 50 mcg/actuation nasal spray Use 1 [place] in each nostril once daily. ferrous sulfate [...] for nausea/vomiting. nitroglycerin subling (more content not included)...[facility] 05-07-2024 History of Present illness Narrative* Edwin Montes APRN.LIFE MANAGEMENT TEACHER - 05/07/2024 8:53 AM EST Images from [...] kidney disease) stage 4, GFR 15-29 ml/min ([facility]) 01/03/2024 On dialysis and seeing Dr. Greenberg. Closed wedge compression fracture of T10 vertebra (HCC) 07/12/2023 Coronary 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 Seeing Dr. Noland DDD (degenerative disc disease), lumbar 11/04/2019 Elevated blood sugar 03/11/2024 Esophageal adenocarcinoma ([facility]) 08/09/2020 Essential hypertension, benign GERD (gastroesophageal reflux disease) 07/12/2009 History of kidney stones 07/20/2014 Iron deficiency anemia due to chronic blood loss 05/25/2020 Iron malabsorption 05/25/2020 Kidney stone Kyphosis (acquired) (postural) 07/30/[address] 03/11/2024 DPA: Lacho (step daughter) Malignant neoplasm of lower third of esophagus ([facility]) 04/15/2020 Medicare annual wellness visit, subsequent 01/13/2021 Medical B eligibilty date 03/09/19 Date of last exam 01/13/2021 Mixed hyperlipidemia MRSA (methicillin resistant Staphylococcus aureus) 12/01/2016 treated with course of Linezolid beginning 10/29/16 Nonrheumatic aortic valve disorder On tube feeding diet 08/14/2020 History: 65 year old male s/p [place] esophagectomy, Pyloromyotomy, Jejunostomy tube placement for esophageal adenocarcinoma -Diet: Isosource 1.5 to 50 cc hour with 100 cc water flushes 8 times per day and Bene protein 3 times per day Removed 11/17/2020 Personal history of colonic polyps 12/27/2009 [employer]'s nodules 03/30/2023 Will try pamelor Pleural effusion 03/11/2021 Stable in f/u studies. Pressure ulcer of unspecified buttock, stage 2 ([facility]) 01/03/2024 Bilaterally. Primary insomnia 03/30/2023 S/P CABG [...] COLONOSCOPY W/BIOPSY SINGLE/MULTIPLE 02/22/2007 Diminutive polyp distal [id number] ECHO 01/08/2021 EGD 04/15/2020 HEART CATHETERIZATION 12/2018 [...] <AGE 11 Tonsillectomy TOT/SUB ESOPHAGECTOMY W/THORACOT 08/09/2020 [place] esophagectomy, jejunostomy tube placement TOTAL HIP [...] (FLONASE) 50 mcg/actuation nasal spray Use 1 [place] in each nostril once daily. ferrous sulfate [...] 5 year window, will update Edwin Montes APRN.MOHINI documented in this encounterUniversity Hospitals Portage Medical Center01-24-2025 NoteHNO ID: [id number] Author: RICHARD JENKINS, DO Service: ? Author [...] abdomen: Dedicated CT abdomen pelvis dictated separately. Welder (topogram) images: No additional findings. CT A/P [...] chest CT performed will be reported separately. Welder (topogram) images: No additional findings. EGD/EUS 04/26/2020: A partially obstructing, malignant esophageal tumor was found to lower 30 esophagus. Gastric tumor in the cardia extension from distal (more content not included)...[facility]01-24-2025 History of Present illness Narrative* Richard [...] abdomen: Dedicated CT abdomen pelvis dictated separately. Welder (topogram) images: No additional findings. CT A/P [...] chest CT performed will be reported separately. Welder (topogram) images: No additional findings. 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 Pain was most intense in March. MRI and PET reviewed by several radiologists. Consensus was no evidence of cancer and biopsy not recommended. He was seen at the spine center in [place]. Office visit 08/2023: Back pain significantly improved after passing kidney stones. Has days without back pain. 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 Here in the past couple weeks, I felt better than I felt since last summer. OV 01/15/2024: Has been hospitalized several times at [facility]. Developed end-stage renal disease and started [...] No jaundice or rash. No petechiae. NEUROLOGIC: copy lathe tender II-XII are grossly intact. No focal motor [...] which included preparing to see the patient, [id number]-[id number] patient care, completing clinical documentation, obtaining and/or reviewing separately obtained history, and performing a medically appropriate examination. Richard Jenkins DO documented in this encounterUniversity Hospitals Portage Medical Center01-22-2025 NoteHNO ID: [id number] Author: KRYSTINA QUINONES LPN Service: ? Author Type: LICENSED NURSE Type: Progress Notes Filed: 04/30/2024 07:42 Note Text: Scan on 04/29/2024 2:53 PM by ProviderDanette PA-C: Consultation - [facility]01-[facility] History of Present illness Narrative* Krystina Quinones LPN - 04/30/2024 7:41 AM EST Scan on 04/29/2024 2:53 PM by ProviderDanette PA-C: Consultation - Cardiology documented in this encounterUniversity Hospitals Portage Medical Center01-20-2025 Evaluation note* Diagnosis Onset Date Resolution Status Admit Date ESRD (end stage renal disease) on dialysis chronic April 1:53pm ESRD (end stage renal disease) on dialysis chronic April 1:49pm Hyperlipidemia chronic April 292024 1:49pm History of aortic valve replacement March 03, 2019 resolved April 1:49pm Adenocarcinoma of esophagus inactive April 29, 2024 1:49pm Atherosclerosis of coronary artery of [place] heart without angina pectoris inactive April 29, 2024 1:49pm [facility] Work Phone: 1(768) 271-380801-20-2025 Evaluation note* Diagnosis Onset Date Resolution Status Admit Date ESRD (end stage renal disease) on dialysis chronic April 1:53pm ESRD (end stage renal disease) on dialysis chronic April 1:49pm Hyperlipidemia chronic April 292024 1:49pm History of aortic valve replacement March 03, 2019 resolved April 1:49pm Adenocarcinoma of esophagus inactive April 29, 2024 1:49pm Atherosclerosis of coronary artery of [place] heart without angina pectoris inactive April 29, 2024 1:49pm ESRD (end stage renal disease) on dialysis chronic June 30, 2024 6:45am [facility] Work Phone: 1(651) 137-563601-17-2025 NoteHNO ID: [id number] Author: KRYSTINA QUINONES LPN Service: ? Author Type: LICENSED NURSE Type: Progress Notes Filed: 04/25/2024 06:53 Note Text: Scan on 04/24/2024 1:51 PM by ProviderDanette PA-C: [facility]01-17-[facility]25 History of Present illness Narrative* Krystina Quinones LPN - 04/25/2024 6:53 AM EST Scan on 04/24/2024 1:51 PM by ProviderDanette PA-C: Ultrasound documented in this encounterUniversity Hospitals Portage Medical Center01-13-2025 Telephone encounter Note * Telephone Encounter - Hayde Summers LPN - 04/21/2024 11:25 AM EST Spoke with pt and information listed below given. Pt verbalizes understanding. Hayde Summers LPN [facility]01-13-2025 Miscellaneous Notes* Telephone Encounter - [...] other labs were ok. documented in this encounterUniversity Hospitals Portage Medical Center01-13-2025 Telephone encounter Note * Telephone Encounter - Gayatri Pradhan MA - 04/21/2024 8:51 AM EST Message left for pt to call back for results. Gayatri Pradhan MA [facility]01-11-2025 Telephone encounter Note* Telephone Encounter - Yaw Singh MD - 04/19/2024 2:32 PM EST Let patient know the only thing out of sorts on his recent labs was his calcium and potassium were slightly and this will most likely be address with his dialysis. All his other labs were ok. [facility]01-09-2025 Telephone encounter Note* Telephone Encounter - Erin Du LPN - 04/17/2024 2:54 PM EST Follow up here on 05/06/24. Rx pended. Erin Du LPN [facility]01-09-2025 Miscellaneous Notes* Telephone Encounter - Erin Du LPN - 04/17/2024 2:54 PM EST Follow up here on 05/06/24. Rx pended. Erin Du LPN * Telephone Encounter - Jennyfer Suresh - 04/17/2024 2:23 PM EST Patient in office and states he needs a RX.REFILL on his 2.5 MG Olanzapine Sent to [facility] documented in this encounterUniversity Hospitals Portage Medical Center01-09-2025 Telephone encounter Note * Telephone Encounter - Jennyfer Suresh - 04/17/2024 2:23 PM EST Patient in office and states he needs a RX.REFILL on his 2.5 MG Olanzapine [facility] to [facility]01-09-2025 History of Present illness Narrative* Beatrice Zuleta RT(Bereket) - 04/17/2024 2:00 PM EST Radiology Service [...] PATIENT PRESENTS WITH AN IMPLANTABLE OR ATTACHED PRAWN TRAWLER HAND: No RADIOLOGY DEPARTMENT: CT; Exam(s) Completed: Chest Abdomen Pelvis PERIPHERAL IV DATA: Not applicable SIGNED BY: RT Geno(Bereket) April 17, 2024 3:51 PM documented in this encounterUniversity Hospitals Portage Medical Center01-09-2025 NoteHNO ID: [id number] Author: BEATRICE ZULETA RT(R) Service: ? Author Type: Special Education Case Manager Type: Progress Notes Filed: 04/17/2024 15:52 Note [...] PATIENT PRESENTS WITH AN IMPLANTABLE OR ATTACHED PRAWN TRAWLER HAND: No RADIOLOGY DEPARTMENT: CT; Exam(s) Completed: Chest Abdomen Pelvis PERIPHERAL IV DATA: Not applicable SIGNED BY: RT Geno(R) April 17, 2024 3:51 [facility]12-03-2024 Instructions* Patient Instructions* Yaw Singh MD - 03/11/2024 10:16 AM EST Screening schedule The following prevention plan is recommended: Anxiety Screening Never done Advance Directive Discussion due on 04/09/2023 Covid-19 Vaccine( season) Never done WHAT YOU CAN DO TO [...] review all the medicines you take, even bqdp-dnk-exmeuws medicines. As you get older, the way [...] have certain medical conditions. documented in this encounterUniversity Hospitals Portage Medical Center12-03-2024 History of Present illness Narrative* [...] (Radiation Oncology) Luly Gaffney RN as Specialty Fur Tanner (Oncology) Richard Jenkins DO as Referring (Hematology/Oncology) Haroldo Noland MD (Cardiology) Sena Seymuor RN (Inactive) as Government Affairs Researcher Friend, Bud Paul DO (Gastroenterology) Helen Gibson, Maegan Ferguson, RN as Primary Care Human Capital Manager Medical/Family history review Reviewed and updated problem list, medical/surgical/family/social history, medications, and allergies. Opioid use review Opioid Medications (last 90 days) 01/03/2024 Opioid Medications hydrocodone/acetaminophen 1 tablet q 6 H PRN Given at [facility] ER 09/10/23 ORAL (2.5- 325 mg [...] 94 Resp 16 Ht 177.8 cm (5' 10) Wt 71.2 kg (157 lb) BMI 22.53 [...] kidney disease) stage 4, GFR 15-29 ml/min ([facility]) 01/03/2024 On dialysis and seeing Dr. Greenberg. Closed wedge compression fracture of T10 vertebra (HCC) 07/12/2023 Coronary 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 Seeing Dr. Noland DDD (degenerative disc disease), lumbar 11/04/2019 Esophageal adenocarcinoma (HCC) 08/09/2020 Essential hypertension, benign GERD (gastroesophageal reflux disease) 07/12/2009 History of kidney stones 07/20/2014 Iron deficiency anemia due to chronic blood loss 05/25/2020 Iron malabsorption 05/25/2020 Kidney stone Kyphosis (acquired) (postural) 07/30/2023 Malignant neoplasm of lower third of esophagus ([facility]) 04/15/2020 Medicare annual wellness visit, subsequent 01/13/2021 [...] 11/17/2020 Personal history of colonic polyps 12/27/2009 [employer]'s nodules 03/30/2023 Will try pamelor Pleural effusion [...] COLONOSCOPY W/BIOPSY SINGLE/MULTIPLE 02/22/2007 Diminutive polyp distal [id number] ECHO 01/08/2021 EGD 04/15/2020 HEART CATHETERIZATION 12/2018 [...] (FLONASE) 50 mcg/actuation nasal spray Use 1 [place] in each nostril once daily. OLANZapine (ZYPREXA) [...] 94 Resp 16 Ht 177.8 cm (5' 10) Wt 71.2 kg (157 lb) BMI 22.53 [...] Lymph 1.00 - 4.00 k/uL 0.71 (L) Runnels% % 8.3 Abs Runnels <0.87 k/uL 0.53 Eosin% % 0.9 Abs [...] restart Zetia. 4. Coronary 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 pectoris- ICD9: 414.01, ICD10: [...] which included preparing to see the patient, bcvu-sl-[id number] patient care, completing clinical documentation, performing a medically appropriate examination, counseling and educating the patient/family/caregiver and ordering medications, tests, or procedures. Yaw Singh MD documented in this encounterUniversity Hospitals Portage Medical Center12-03-2024 NoteHNO ID: [id number] Author: YAW SINGH MD Service: ? Author [...] (Radiation Oncology) Luly Gaffney, RN as Specialty Fur Tanner (Oncology) Richard Jenkins DO as Referring (Hematology/Oncology) Haroldo Noland MD (Cardiology) Sena Seymour, MICHELE (Inactive) as Government Affairs Researcher Friend, Bud Paul DO (Gastroenterology) Helen Gibson, Maegan Ferguson, RN as Primary Care Human Capital Manager Medical/Family history review Reviewed and updated problem list, medical/surgical/family/social history, medications, and allergies. Opioid use review Opioid Medications (last 90 days) 01/03/2024 Opioid Medications hydrocodone/acetaminophen 1 tablet q 6 H PRN Given at [facility] ER 09/10/23 ORAL (2.5-325 mg tab) [...] 94 Resp 16 Ht 177.8 cm (5' 10) Wt 71.2 kg (157 lb) BMI 22.53 [...] vertebra (HCC) 07/12/2023 Coronary 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 Seeing Dr. [...] per day Removed 11/07 (more content not included)...[facility] 03-03-2024 NoteHNO ID: [id number] Author: YAW SINGH MD Service: ? Author Type: Physician Type: Progress Notes Filed: 03/03/2024 21:11 Note Text: Patient's home health 485 form / care plan for certification period 02/27/2024 to 04/26/2024 reviewed and signed. Relevant medical records were reviewed. Changes were communicated to home [facility] 03-03-2024 History of Present illness Narrative* Yaw Singh MD - 03/03/2024 9:08 PM EST Patient's home health 485 form / care plan for certification period 02/27/2024 to 04/26/2024 reviewed and signed. Relevant medical records were reviewed. Changes were communicated to home health agency documented in this encounterUniversity Hospitals Portage Medical Center11-10-2024 [facility] Medical Records Department [address] [place] [address] Discharge Summary 02/17/24903 MR#: [id number] Acct: [id number] Name: JACOB LANDA Rep #: [id number] : 1955 68 From: Gayatri Roy DO PCP: Dr. Yaw Singh MD Status:[id number] Date of Admission: 02/15/24 Date of [...] who presented to the emergency department at [facility] on 02/14/2024 with a chief complaint [...] had minimal pain and did well with geophysical data technician (more content not included)...[facility]11-08-2024 History of Present illness Narrative* Krystina Quinones LPN - 02/15/2024 8:08 AM EST Scan on 02/15/2024 12:13 AM by ProviderDanette PA-C: Consultation - Emergency Medicine Scan on 02/15/2024 6:44 AM by ProviderDanette PA-C documented in this encounterUniversity Hospitals Portage Medical Center10-28-2024 Telephone encounter Note * Telephone [...] the patient to follow up with his patient accounts specialist for volume management as well as cell operator. Patient gets dialysis MWF. All questions answered. [facility]10-28-2024 Miscellaneous Notes* Telephone Encounter - [...] the patient to follow up with his patient accounts specialist for volume management as well as cell operator. Patient gets dialysis MWF. All questions answered. documented in this encounterUniversity Hospitals Portage Medical Center10-24-2024 Instructions* Patient Instructions* Zachary Berkowitz APRN.CNP - 01/31/2024 9:56 AM EDT -Get chest xray today -Start Fluticasone (Flonase) 1-2 spray(s) (50 mcg/spray) per nostril once daily. -Start clotrimazole 10 mg neena 5x a day for 14 days for oral thrush documented in this encounterUniversity Hospitals Portage Medical Center10-24-2024 History of Present illness Narrative* Zachary Berkowitz APRN.CNP - 01/31/2024 9:30 AM EDT Images from the original note were not included. Patient: Jacob Landa PCP: Yaw iSngh MD CC: follow up HPI: Jacob Landa [...] line. After discharge, he went to the halfway. 12/27 was discharged home from halfway. Feeling tired at times. Otherwise feeling good. Last saw patient accounts specialist in the spring. States seeing them [...] kidney disease) stage 4, GFR 15-29 ml/min ([facility]) 01/03/2024 On dialysis and seeing Dr. Greenberg. Closed wedge compression fracture of T10 vertebra ([facility]) 07/12/2023 Coronary 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 Seeing Dr. 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 03/30/2023 Will try pamelor Pleural effusion [...] COLONOSCOPY W/BIOPSY SINGLE/MULTIPLE 02/22/2007 Diminutive polyp distal [id number] ECHO 01/08/2021 EGD 04/15/2020 HEART CATHETERIZATION 12/2018 [...] <AGE 11 Tonsillectomy TOT/SUB ESOPHAGECTOMY W/THORACOT 08/09/2020 [place] esophagectomy, jejunostomy tube placement I reviewed [...] F) Resp 24 Ht 177.8 cm (5' 10) Wt 70.3 kg (155 lb) SpO2 100% BMI 22.24 kg/m O2: RA Physical Exam Vitals reviewed. Constitutional: General: He is not in acute distress. Appearance: Normal appearance. He is not ill-appearing, toxic-appearing or diaphoretic. HENT: Head: Normocephalic and atraumatic. Nose: Nose normal. No congestion or rhinorrhea. Mouth/Throat: Lips: [place]. No lesions. Mouth: Mucous membranes are moist. [...] for labs including cytology -following with a patient accounts specialist for HF, encouraged him to follow up with his patient accounts specialist. Does not appear fluid overloaded on [...] which included preparing to see the patient, kgjs-sy-bzrf patient care, completing clinical documentation, obtaining and/or reviewing separately obtained history, performing a medically appropriate examination, counseling and educating the pat ient/family/caregiver, and ordering medications, tests, or procedures . Zachary Berkowitz APRN.MOHINI Pulmonary Medicine documented in this encounterUniversity Hospitals Portage Medical Center10-22-2024 Telephone encounter Note * Telephone Encounter - Isa Godoy LPN - 01/29/2024 9:10 AM EDT Spoke with pt. He did receive message concerning results, will F/U with Dr. Beck as directed Isa Godoy LPN [facility]10-22-2024 Miscellaneous Notes* Telephone Encounter - [...] nausea. Richard Jenkins DO documented in this encounterUniversity Hospitals Portage Medical Center10-21-2024 Telephone encounter Note * Telephone [...] to please contact office. Isa Godoy LPN [facility]10-21-2024 Telephone encounter Note* Telephone Encounter - Richard Jenkins DO - 01/28/2024 3:04 PM EDT Can let him know the results of the stomach x-ray and small bowel follow-through did not suggest any sign of cancer. He is scheduled to see Dr. Beck for possible stent placement in esophagus this may help with his symptoms of nausea. Richard Jenkins DO [facility]10-17-2024 History of Present illness Narrative* [...] PATIENT PRESENTS WITH AN IMPLANTABLE OR ATTACHED PRAWN TRAWLER HAND: No RADIOLOGY DEPARTMENT: General X-ray: Exam(s) Completed: GI/ Procedure(s): Upper GI with small bowel with barium contrast PERIPHERAL IV DATA: Not applicable SIGNED BY: RT Susan(Bereket) January 24, 2024 2:36 PM documented in this encounterUniversity Hospitals Portage Medical Center10-17-2024 NoteHNO ID: [id number] Author: BROOKE SAMANIEGO RT(R) Service: ? Author Type: Special Education Case Manager Type: Progress Notes Filed: 01/24/2024 14:36 Note [...] PATIENT PRESENTS WITH AN IMPLANTABLE OR ATTACHED PRAWN TRAWLER HAND: No RADIOLOGY DEPARTMENT: General X-ray: Exam(s) Completed: GI/ Procedure(s): Upper GI with small bowel with barium contrast PERIPHERAL IV DATA: Not applicable SIGNED BY: RT Susan(R) January 24, 2024 2:36 [facility]10-11-2024 Telephone encounter Note* Telephone Encounter - Elvira Noriega LPN - 01/18/2024 1:02 PM EDT Appointment notes updated. Elvira Noriega LPN [facility]10-11-2024 Miscellaneous Notes* Telephone Encounter - [...] it OTC then can be ordered from POS on CLOUD. Isa Godoy LPN ' * Telephone Encounter - Richard Jenkins DO - 01/17/2024 3:25 PM EDT Can let him know that his copper level is slightly low. Recommend starting copper supplement, either copper gluconate or copper citrate 2 mg tablet once daily. If he cannot find it OTC then can be ordered from POS on CLOUD. Add copper level to labs when next here. Richard Jenkins DO documented in this encounterUniversity Hospitals Portage Medical Center10-11-2024 Telephone encounter Note * Telephone Encounter - Richard Jenkins DO - 01/18/2024 12:56 PM EDT CBC/Retic count. [facility]10-10-2024 Telephone encounter Note* Telephone Encounter [...] it OTC then can be ordered from POS on CLOUD. Isa Godoy LPN ' [facility]10-10-2024 Telephone encounter Note* Telephone Encounter - Richard Jenkins DO - 01/17/2024 3:25 PM EDT Can let him know that his copper level is slightly low. Recommend starting copper supplement, either copper gluconate or copper citrate 2 mg tablet once daily. If he cannot find it OTC then can be ordered from POS on CLOUD. Add copper level to labs when next here. Richard Jenkins DO [facility]10-10-2024 Telephone encounter Note* Telephone Encounter - Mary Mims MA - 01/17/2024 12:27 PM EDT Pt informed Mary Mims MA [facility]10-10-2024 Miscellaneous Notes* Telephone Encounter - [...] on hold. Please advise? documented in this encounterUniversity Hospitals Portage Medical Center10-10-2024 Telephone encounter Note * Telephone Encounter - Yaw Singh MD - 01/17/2024 11:51 AM EDT Advise patient to continue to stay off the Amlodipine. His BP is still on the low side. [facility]10-10-2024 Telephone encounter Note* Telephone Encounter - Cathi De Souza LPN - 01/17/2024 11:15 AM EDT Pt calls states just left Dr. Farfan office and forgot to ask if he would like him to re start hisamlodipine now? States was on hold. Please advise? [facility]10-10-[facility] History of Present illness Narrative* Yaw Singh MD - 01/17/2024 10:40 AM EDT Chief Complaint No chief complaint on file. SAMANTHA Landa is a 68 year old male [...] vertebra (HCC) 07/12/2023 Coronary 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 Seeing Dr. 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 03/30/2023 Will try pamelor Pleural effusion [...] COLONOSCOPY W/BIOPSY SINGLE/MULTIPLE 02/22/2007 Diminutive polyp distal [id number] ECHO 01/08/2021 EGD 04/15/2020 HEART CATHETERIZATION 12/2018 [...] <AGE 11 Tonsillectomy TOT/SUB ESOPHAGECTOMY W/THORACOT 08/09/2020 [place] esophagectomy, jejunostomy tube placement Family History [...] 104/67 Pulse 76 Ht 175.3 cm (5' 9) Wt 72.1 kg (159 lb) BMI 23.48 kg/m General Appearance: Well appearing, alert, in no acute distress, well-hydrated, well nourished.. Skin: Skin color, texture, turgor normal. The stage two pressure sours are resolved. Some mild erythema from siting. Health Maintenance List Anxiety Screening Never done Advance Directive Discussion due on 04/09/2023 Influenza Vaccine(1) due on 12/09/2023 Covid-19 Vaccine( - season) Never done RSV Vaccine(1 - [...] again. Yaw Singh MD documented in this encounterUniversity Hospitals Portage Medical Center10-08-2024 History of Present illness Narrative* [...] abdomen: Dedicated CT abdomen pelvis dictated separately. Welder (topogram) images: No additional findings. CT A/P [...] chest CT performed will be reported separately. Welder (topogram) images: No additional findings. 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 Pain was most intense in March. MRI and PET reviewed by several radiologists. Consensus was no evidence of cancer and biopsy not recommended. He was seen at the spine center in [place]. Office visit 08/2023: Back pain significantly improved after passing kidney stones. Has days without back pain. 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 Here in the past couple weeks, I felt better than I felt since last summer. Presents for ongoing oncologic management. Interim history: Has been hospitalized several times at [facility]. Developed end-stage renal disease and started [...] No jaundice or rash. No petechiae. NEUROLOGIC: copy lathe tender II-XII are grossly intact. No focal motor [...] which included preparing to see the patient, ijcp-at-xyll patient care, completing clinical documentation, obtaining and/or reviewing separately obtained history, performing a medically appropriate examination, counseling and educating the pat ient/family/caregiver, ordering medications, tests, or procedures, communicating with other HCPs (not separately reported), and communicating results to the patient/family/caregiver. Richard Jenkins DO documented in this encounterUniversity Hospitals [facility]10-07-2024 Telephone encounter Note * Telephone [...] as well to address. Jannet Goldsmith MA [facility]10-07-2024 Miscellaneous Notes* Telephone Encounter - [...] get CBC repeated this documented in this encounterUniversity Hospitals Portage [facility] Center10-04-2024 Telephone encounter Note * Telephone Encounter - Alberta Candelaria MA - 01/11/2024 8:19 AM EDT Left additional message for patient to contact office. Alberta Candelaria MA [facility]10-03-2024 Telephone encounter Note* Telephone Encounter - Syl Jensen MA - 01/10/2024 3:16 PM EDT Kay from home health informed and verbalized understanding. Syl Jensen MA [facility]10-03-2024 Miscellaneous Notes* Telephone Encounter - [...] to make you aware. documented in this encounterUniversity Hospitals Portage Medical Center10-03-2024 Telephone encounter Note * Telephone Encounter - Yaw Singh MD - 01/10/2024 3:00 PM EDT Advise Kay that if patient is becoming lethargic, confused, shortness of breath or fever will not come down that he needs to go to the ER. [facility]10-03-2024 Telephone encounter Note* Telephone Encounter [...] .But did want to make you aware. [facility]10-01-2024 Telephone encounter Note* Telephone Encounter - Alberta Candelaria MA - 01/08/2024 10:10 AM EDT Patient was already seen. Alberta Candelaria MA [facility]10-01-2024 Miscellaneous Notes* Telephone Encounter - Alberta Candelaria MA - 01/08/2024 10:10 AM EDT Patient was already seen. Alberta Candelaria MA * Telephone Encounter - Alberta Candelaria MA - 01/02/2024 4:55 PM EDT Patient was D/C from [facility]. Spoke with nurse sadie to see if we could obtain any additional information such as the D/C summary from his stay at there facility and she indicated once the patient is D/C nursing staff doesn't have access to the patient's chart. She suggested calling Dr. Milner who is the director and would have been handling the patients car while there. Dr. Milner [phone] attempted to contact there office to obtain records they were experiencing high call volume was no longer able to stay on hold. Please try and call again tomorrow morning. Alberta Candelaria MA documented in this encounterUniversity Hospitals Portage Medical Center09-30-2024 Telephone encounter Note * Telephone Encounter - Gayatri Pradhan MA - 01/07/2024 10:01 AM EDT Message left for pt to call back for results. Gayatri Pradhan MA [facility]09-29-2024 History of Present illness Narrative* Yaw Singh MD - 01/06/2024 9:08 PM EDT Patient's home health 485 form / care plan for certification period 12/29/2023 to 02/26/2024 reviewed and signed. Relevant medical records were reviewed. Changes were communicated to home health agency documented in this encounterUniversity Hospitals Portage Medical Center09-29-2024 Telephone encounter Note * Telephone Encounter - Yaw Singh MD - 01/06/2024 9:02 PM EDT Let patient know his iron is low and want him to start taking Slo Fe over the counter one every other day along with Vit C 500 mg with it every other day. I placed an order to get CBC repeated this [facility]09-26-2024 History of Present illness Narrative* Yaw Singh MD - 01/03/2024 11:00 AM EDT Images from the original note were not included. Chief Complaint Patient presents with: Hospital F/U And halfway f/u HPI Jacob Landa is a 68 year old male who presents here today for Above Complaints.. Patient was seen in [facility] 09/21/[address]ici pain. CT [...] wounds on both butt cheeks. Patient has [facility] for wound care but was not referred to a outpatient wound care facility. Emotionally patient feels he is doing ok. Does not feel depressed and not anxious. Looking forward to getting back to driving his van to [place]. Was sent home from [facility] 12/28/2023 and has [facility]. He is getting penitentiary and PHYSICAL THERAPY. Has occasional shortness of [...] vertebra (HCC) 07/12/2023 Coronary 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 Seeing Dr. 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 03/30/2023 Will try pamelor Pleural effusion [...] COLONOSCOPY W/BIOPSY SINGLE/MULTIPLE 02/22/2007 Diminutive polyp distal [id number] ECHO 01/08/2021 EGD 04/15/2020 HEART CATHETERIZATION 12/2018 [...] hours as needed for pain. Given at [facility] ER 09/10/23 POTASSIUM ORAL Take by [...] MIST) 0.65 % nasal spray Use 1 [place] in the nose as needed for cold/allergysymptoms. [...] 157/70 Pulse 75 Ht 175.3 cm (5' 9) Wt 77.7 kg (171 lb 6.4 oz) BMI 25.31 kg/m BP 100/68 Pulse 75 Ht 175.3 cm (5' 9) Wt 77.7 kg (171 lb 6.4 oz) [...] which included preparing to see the patient, [id number] patient care, completing clinical documentation, performing a medically appropriate examination, counseling and educating the patient/family/caregiver and ordering medications, tests, or procedures. Yaw Singh MD documented in this encounterUniversity Hospitals Portage Medical Center09-25-2024 Telephone encounter Note * Telephone Encounter - Alberta Candelaria MA - 01/02/2024 4:55 PM EDT Patient was D/C from [facility]. Spoke with nurse sadie to see if we could obtain any additional information such as the D/C summary from his stay at there facility and she indicated once the patient is D/C nursing staff doesn't have access to the patient's chart. She suggested calling Dr. Milner who is the director and would have been handling the patients car while there. Dr. Milner [phone] attempted to contact there office to obtain records they were experiencing high call volume was no longer able to stay on hold. Please try and call again tomorrow morning. Alberta Candelaria MA [facility]09-24-2024 Telephone encounter Note* Telephone Encounter - Helena Velez RN - 01/01/2024 3:31 PM EDT Aisha calling back and asking for orders to be faxed to [facility] at [phone]. Faxed as requested. Helena Velez RN [facility]09-24-2024 Miscellaneous Notes* Telephone Encounter - Helena Velez RN - 01/01/2024 3:31 PM EDT Aisha calling back and asking for orders to be faxed to [facility] at [phone]. Faxed as requested. Helena Velez RN * [...] - 01/01/2024 2:48 PM EDT Bryanna from [employer] calling patient had told her this morning at 3 am he had moderate amount of blood on his underwear in rectal area. She said his wound on buttocks, near rectal area is not actively bleeding. She advised to go to ER and patient refused. Nurse said tomorrow is patient dialysis day at [facility] [place], asking if PCP wants to send order for H&H to be done? Pl ease advise documented in this encounterUniversity Hospitals Portage Medical Center09-24-2024 Telephone encounter Note * Telephone Encounter - Alberta Candelaria MA - 01/01/2024 3:19 PM EDT Left message for Bryanna regarding orders. Please find out where they would like the lab order sent. Alberta Candelaria MA [facility]09-24-2024 Telephone encounter Note* Telephone Encounter - Yaw Singh MD - 01/01/2024 3:06 PM EDT I placed an order but do not know where it needs faxed to. Order printed. [facility]09-24-2024 Telephone encounter Note* Telephone Encounter - Samaria Mac LPN - 01/01/2024 2:48 PM EDT Bryanna from [facility] calling patient had told her this morning at 3 am he had moderate amount of blood on his underwear in rectal area. She said his wound on buttocks, near rectal area is not actively bleeding. She advised to go to ER and patient refused. Nurse said tomorrow is patient dialysis day at [facility] [place], asking if PCP wants to send order for H&H to be done? Pl alexus advise [facility]09-23-2024 Telephone encounter Note* Telephone Encounter - Yaw Singh MD - 12/31/2023 4:00 PM EDT Noted. [facility]09-23-2024 Miscellaneous Notes* Telephone Encounter - [...] 12/31/2023 9:29 AM EDT Hayde calling from [facility]. Patient got released on 12/28/23 and was seen by on the 12/29/23. Nurse Hayde noted that patient has moisture on skin of buttocks with breakdown. Ordered triad paste to apply 2 x daily and monitoring. Maybe fungal? They will reevaluate at next visit. Orders for: long-term, OT and PT Please review and advise Kaycee Menon LPN documented in this encounterUniversity Hospitals Portage Medical Center09-23-2024 Telephone encounter Note * Telephone [...] can be taken they will do that. [facility]09-23-2024 Telephone encounter Note* Telephone Encounter - Yaw Singh MD - 12/31/2023 12:45 PM EDT Let Hayde know I agree with the wound care plan. See is she can get a would culture for bacteria and fungus? [facility]09-23-2024 Telephone encounter Note* Telephone Encounter - Kaycee Menon LPN - 12/31/2023 9:29 AM EDT Hayde calling from [facility]. Patient got released on 12/28/23 and was seen by on the 12/29/23. Nurse Hayde noted that patient has moisture on skin of buttocks with breakdown. Ordered triad paste to apply 2 x daily and monitoring. Maybe fungal? They will reevaluate at next visit. Orders for: long-term, OT and PT Please review and advise Kyacee Menon LPN [facility]09-20-2024 Telephone encounter Note* Telephone Encounter - Krystina Quinones LPN - 12/28/2023 2:13 PM EDT Janay advised of Dr Singh's message. She verbalizes understanding. Krystina Quinones LPN [facility]09-20-2024 Miscellaneous Notes* Telephone Encounter - Krystina Quinones LPN - 12/28/2023 2:13 PM EDT Janay advised of Dr Singh's message. She verbalizes understanding. Krystina Quinones LPN * Telephone Encounter - Yaw Singh MD - 12/28/2023 1:47 PM EDT Yes I will follow. * Telephone Encounter - Helena Velez RN - 12/28/2023 11:55 AM EDT Janay from [facility] calls and states that patient was discharged from [facility] on 12/27/2023 with the diagnosis of bilateral pleural effusion, LEELA, and Anemia. Janay asking if provider willing to follow patient with orders for long-term, physical therapy, and occupational therapy. residential doctor did sign orders to Janay fish asking if provider will follow orders? If agreeable please give Luis Alfredo call back . Thank you, Helena Velez RN documented in this encounterUniversity Hospitals Port[facility] Center09-20-2024 Telephone encounter Note * Telephone Encounter - Yaw Singh MD - 12/28/2023 1:47 PM EDT Yes I will follow. [facility]09-20-2024 Telephone encounter Note* Telephone Encounter - Helena Velez RN - 12/28/2023 11:55 AM EDT Janay from [facility] calls and states that patient was discharged from [facility] on 12/27/2023 with the diagnosis of bilateral pleural effusion, LEELA, and Anemia. Janay asking if provider willing to follow patient with orders for long-term, physical therapy, and occupational therapy. residential doctor did sign orders to Janay fish asking if provider will follow orders? If agreeable please give Luis Alfredo call back . Thank you, Helena Velez, RN [facility]09-17-2024 History of Present illness Narrative* Krystina Quinones LPN - 12/25/2023 1:45 PM EDT Scan on 12/25/2023 12:52 PM by Danette Houston PA-C: EGD documented in this encounterUniversity Hospitals Portage Medical Center08-08-2024 History of Present illness Narrative* Krystina Quinones LPN - 11/15/2023 6:54 AM EDT Scan on 11/14/2023 6:00 PM by Danette Houston PA-C Scan on 11/14/2023 3:59 PM by Danette Houston PA-C: Consultation - Nephrology/Renal documented in this encounterUniversity Hospitals Portage Medical Center07-31-2024 History of Present illness Narrative* Alberta Candelaria MA - 11/07/2023 3:32 PM EDT Scan on 11/06/2023 10:54 AM by Danette Houston PA-C: Miscellaneous Clinical Documents Alberta Candelaria MA documented in this encounterUniversity Hospitals Portage Medical Center07-29-2024 History of Present illness Narrative* [...] patient? Alberta Candelaria MA documented in this encounterUniversity Hospitals Portage Medical Center07-29-2024 History of Present illness Narrative* Krystina Quinones LPN - 11/05/2023 8:23 AM EDT Scan on 11/02/2023 5:55 PM by Danette Houston PA-C: EGD Scan on 11/02/2023 5:53 PM by Danette Houston PA-C: Miscellaneous Clinical Documents documented in this encounterUniversity Hospitals Portage Medical Center07-26-2024 History of Present illness Narrative* Alberta Candelaria MA - 11/02/2023 12:43 PM EDT Scan on 11/01/2023 8:09 PM by Danette Houston PA-C: Consultation - hospital admission - Dr. Beck. Alberta Candelaria MA documented in this encounterUniversity Hospitals Portage Medical Center07-25-2024 Telephone encounter Note * Telephone Encounter - Jennyfer Suresh - 11/01/2023 8:46 AM EDT Unable to reach letter sent out [facility]07-25-2024 Miscellaneous Notes* Telephone Encounter - [...] PM EDT I know he is in [facility] right now but can let him know the biopsy results were negative for cancer. That is great news. Please set up office visit with me in about 2 months. Richard Jenkins DO documented in this encounterUniversity Hospitals Portage Medical Center07-24-2024 History of Present illness Narrative* Alberta Candelaria MA - 10/31/2023 5:00 PM EDT Scan on 10/30/2023 3:12 PM by Danette Houston PA-C: Pulmonary Scan on 10/31/2023 9:39 AM by Danette Houston PA-C: Consultation - Emergency Medicine Patient is still admitted 10/31/2023. Alberta Candelaria MA documented in this encounterUniversity Hospitals Portage Medical Center07-24-2024 Telephone encounter Note * Telephone Encounter - Nuria Sanches - 10/31/2023 4:18 PM EDT LVM for patient to return call to schedule ov appointment Nuria Sanches [facility]07-22-2024 History of Present illness Narrative* Alberta Candelaria MA - 10/29/2023 2:07 PM EDT Scan on 10/28/2023 10:26 AM by ProviderDanette PA-C: Discharge Summary Patient was admitted to the hospital on 10/12/2023 and D/C 10/25/2023 for sepsis secondary acute cystitis with bactermia. Bilateral pleural effusions. Patient was placed on Dialysis. Patient was D/C long-term facility [facility]. Scan on 10/29/2023 6:35 AM by Danette Houston PA-C: Consultation - Emergency Medicine Scan on 10/29/2023 7:27 AM by Danette Houston PA-C: Consultation - Emergency Medicine Patient taken back to [facility] ER on 10/29/2023 for SOB. Patient has volume overload and large left effusion and moderate right effusion. Patient is scheduled to have HD ENRI[place]. Dr. Greenberg following. Dr. Mann for infectious disease. Patient currently Admitted. Alberta Candelaria MA documented in this encounterUniversity Hospitals Portage Medical Center07-20-2024 Telephone encounter Note * Telephone Encounter - Jennyfer Suresh - 10/27/2023 10:10 AM EDT Called patient and left a vm to return our call Jennyfer Suresh [facility]07-16-2024 Telephone encounter Note* Telephone Encounter - Isa Godoy LPN - 10/23/2023 2:06 PM EDT Message left on voicemail to contact office for biopsy results. Will also need OV with Dr. Jenkins in2 months. Isa Godoy LPN [facility]07-16-2024 Telephone encounter Note* Telephone Encounter - Richard Jenkins DO - 10/23/2023 1:14 PM EDT I know he is in [facility] right now but can let him know the biopsy results were negative for cancer. That is great news. Please set up office visit with me in about 2 months. Richard Jenkins DO [facility]07-02-2024 Telephone encounter Note* Telephone Encounter - Lauren West - 10/09/2023 1:36 PM EDT Patient contacted, scheduled appt with Dr. Davey 3:40 pm on 11-27-2023 Lauren West [facility] Work Phone: 1(979) 359-324107-02-2024 Miscellaneous Notes* Telephone Encounter - Lauren West [...] help lower his LDL? documented in this encounterUniversity Hospitals Portage Medical Center07-02-2024 History of Present illness Narrative* [...] for internal providers or letter via the [employer] for external providers. 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 [...] 11/17/2020 Personal history of colonic polyps 12/27/2009 [employer]'s nodules 03/30/2023 Will try pamelor Pleural effusion [...] hours as needed for pain. Given at [facility] ER 09/10/23 POTASSIUM ORAL Take by [...] MIST) 0.65 % nasal spray Use 1 [place] in the nose as needed for cold/allergysymptoms. [...] (Src) 98 (Temporal) Resp 18 Ht 5' 9.75 (1.77m) Wt 199 lb (90.3kg) SpO2 96% [...] which included preparing to see the patient, [id number] patient care, completing clinical documentation, obtaining and/or reviewing separately obtained history, performing a medically appropriate examination, counseling and educating the pat ient/family/caregiver and ordering medications, tests, or procedures. SIGNATURE: Helen Blair MD [facility] Department of Pulmonary and Critical Care Medicine DATE: October 09, 2023 documented in this encounterUniversity Hospitals Portage Medical Center07-01-2024 Telephone encounter Note * Telephone Encounter - Alberta Candelaria MA - 10/08/2023 4:34 PM EDT Please assist patient to schedule with ENDO. Alberta Candelaria MA [facility]07-01-2024 Telephone encounter Note* Telephone Encounter - Yaw Singh MD - 10/08/2023 4:24 PM EDT Consult to Endo placed. [facility]07-01-2024 Telephone encounter Note* Telephone Encounter [...] place order for this. Helena Velez RN [facility]07-01-2024 Telephone encounter Note* Telephone Encounter - Christiano Nolasco RN - 10/08/2023 4:08 PM EDT Called and left a voicemail for the Patient to call back and ask for a nurse to receive the providers message. Christiano Nolasco RN [facility]07-01-2024 Telephone encounter Note* Telephone Encounter [...] injectable agents to help lower his LDL? [facility]07-01-2024 Telephone encounter Note* Telephone Encounter - Martin Siddiqi RN - 10/08/2023 2:42 PM EDT Instructed pt he will be able to drive himself home after seeing Dr Blair; understanding acknowledged Thank you. Martin Siddiqi RN [facility]07-01-2024 Miscellaneous Notes* Telephone Encounter - Martin Siddiqi RN - 10/08/2023 2:42 PM EDT Instructed pt he will be able to drive himself home after seeing Dr Blair; understanding acknowledged Thank you. 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 Call back number above has been verified FOR EMERGENCY CALLS: Shortness of breath, trouble breathing, Oxygen level less than 90%, requiring immediate attention or less than 1 hour response time- route HIGH PRIORITY to nursing Please Route Completed Encounters to nursing documented in this encounterUniversity Hospitals Portage Medical Center07-01-2024 Telephone encounter Note * Telephone Encounter - Yara Blaine Frances - 10/08/2023 2:34 PM EDT curr Patient Caller Name: Jacob Landa Call Back Number [phone] Reason for Call: Other question Additional Information: patient is coming in for first visit with Pulmonology and requesting a callto advise if he will need someone to hammer driver patient 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 Call back number above has been verified FOR EMERGENCY CALLS: Shortness of breath, trouble breathing, Oxygen level less than 90%, requiring immediate attention or less than 1 hour response time- route HIGH PRIORITY to nursing Please Route Completed Encounters to nursing [facility]06-28-2024 Instructions* Patient Instructions* Yaw Singh MD - 10/05/2023 10:46 AM EDT Please do the blood work and urine tests on or after 10/19/2023 Please get labs and urine test done on or after 03/07/2024 prior to your next visit. documented in this encounterUniversity Hospitals Portage Medical Center06-28-2024 History of Present illness Narrative* Yaw Singh MD - 10/05/2023 9:51 AM EDT Chief Complaint Patient presents with: F/U 6 months HPI Jacob Landa is a 68 year old male who presents here today for 6 month follow up. Patient indicated that he was in the [facility] ER 09/11/2023 found a kidney stone. [...] dilated Aorta. This information was faxed to [facility] but he has not received [...] of right wrist Coronary 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 Seeing Dr. [...] 11/17/2020 Personal history of colonic polyps 12/27/2009 [employer]'s nodules 03/30/2023 Will try pamelor Pleural effusion [...] COLONOSCOPY W/BIOPSY SINGLE/MULTIPLE 02/22/2007 Diminutive polyp distal [id number] ECHO 01/08/2021 EGD 04/15/2020 HEART CATHETERIZATION 12/2018 [...] (LASIX ORAL) Take by mouth. Given at [facility] ER 09/10/23 HYDROcodone-acetaminophen 2.5-325 mg tab Take 1 tablet by mouth every 6 hours as needed for pain. Given at [facility] ER 09/10/23 POTASSIUM ORAL Take by mouth. nystatin (MYCOSTATIN) cream Apply to affected area two times a day. ondansetron (ZOFRAN) 8 mg tablet Take 1 tablet by mouth every 8 hours as needed for nausea/vomiting. sodium chloride (SALINE MIST) 0.65 % nasal spray Use 1 [place] in the nose as needed for cold/allergysymptoms. [...] swelling RESPIRATORY: Negative for cough, hemoptysis, wheezing, DYE RANGE TENDER. If he exerts himself he will get [...] 03/30/2024 Covid-19 Vaccine(2022- season) due on 06/18/2024 LDL Cholesterol due [...] mg QD 4. Coronary 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 pectoris- ICD9: 414.01, ICD10: [...] prior Yaw Singh MD documented in this encounterUniversity Hospitals Portage Medical Center06-14-2024 Telephone encounter Note * Telephone Encounter - Hayde Summers LPN - 09/21/2023 12:30 PM EDT Spoke with pt and information listed below given. Pt verbalizes understanding. Hayde Summers LPN [facility]06-14-2024 Miscellaneous Notes* Telephone Encounter - Hayde Summers LPN - 09/21/2023 12:30 PM EDT Spoke with pt and information listed below given. Pt verbalizes understanding. Hayde Summers LPN * Telephone Encounter - Krystina Quinones LPN - 09/21/2023 11:43 AM EDT Left message for pt to contact office. Please see message below. Office did fax a copy of Echo to [facility]. Krystina Quinones LPN * Telephone [...] up with cardio scheduled? documented in this encounterUniversity Hospitals [facility] Center06-14-2024 Telephone encounter Note * Telephone Encounter - Krystina Quinones LPN - 09/21/2023 11:43 AM EDT Left message for pt to contact office. Please see message below. Office did fax a copy of Echo to [facility]. Krystina Quinones LPN [facility]06-14-2024 Telephone encounter Note* Telephone Encounter [...] is his follow up with cardio scheduled? [facility]06-12-[facility]24 Telephone encounter Note* Telephone Encounter - Sadie Mcgraw - 09/19/2023 5:25 PM EDT Spoke to pt and scheduled biopsy for 09/25/23. [facility]06-12-2024 Miscellaneous Notes* Telephone Encounter - [...] for this procedure: low risk. Reference from [facility] [employer]: [email or web address] STAFF SIGNATURE: Renetta Davis MD DATE: September 17, 2023 TIME: 5:00 PM * Telephone Encounter - Hayley PickensNAGA - 09/17/2023 10:42 AM EDT BX. COORDINATOR INFORMATION LAB RESULTS: PT INR (no units) Date Value 08/06/2020 1.0 APTT (sec) Date Value 08/06/2020 25.5 Platelet Count (k/uL) Date Value 02/13/2023 158 06/02/2021 159 Current Outpatient Medications Medication Sig furosemide (LASIX ORAL) Take by mouth. Given at [facility] ER 09/10/23 HYDROcodone-acetaminophen 2.5-325 mg tab Take 1 tablet by mouth every 6 hours as needed for pain. Given at [facility] ER 09/10/23 POTASSIUM ORAL Take by [...] MIST) 0.65 % nasal spray Use 1 [place] in the nose as needed for cold/allergysymptoms. [...] am REQUESTING STAFF: Dr. Richard Jenkins PHONE/PAGER: [phone] SPECIFICS OF THE REQUEST: (Please be as [...] OF THE REQUEST: MRI Date: 09/10/23 IMAGING: [facility] documented in this encounterUniversity Hospitals Portage [facility] Center06-10-2024 Telephone encounter Note * Telephone [...] for this procedure: low risk. Reference from [facility] [employer] [facility] [employer]: [email or web address] STAFF SIGNATURE: Renetta Davis MD DATE: September 17, 2023 TIME: 5:00 PM [facility] Work Phone: 1(776) 512-565206-10-2024 Telephone encounter Note* Telephone Encounter - Carla Izaguirre OCCA - 09/17/2023 2:50 PM EDT TC to patient who is informed of below. Patient is agreeable to seeing Pulm. Please contact patient to assist in scheduling. Thank you. PERRY Rivera [facility]06-10-2024 Miscellaneous Notes* Telephone Encounter - Carla Izaguirre OCCA - 09/17/2023 2:50 PM EDT TC to patient who is informed of below. Patient is agreeable to seeing Pulm. Please contact patient to assist in scheduling. Thank you. PERRY Rivera * Telephone Encounter - Usha Mcgovern PA-C [...] well. Usha Mcgovern PA-C documented in this encounterUniversity Hospitals Portage Medical Center06-10-2024 Telephone encounter Note * Telephone [...] and Echo as well. Usha Mcgovern PA-C [facility]06-10-2024 Telephone encounter Note* Telephone Encounter - Hayley Pickens LPN - 09/17/2023 10:42 AM EDT BX. COORDINATOR INFORMATION LAB RESULTS: PT INR (no units) Date Value 08/06/2020 1.0 APTT (sec) Date Value 08/06/2020 25.5 Platelet Count (k/uL) Date Value 02/13/2023 158 06/02/2021 159 Current Outpatient Medications Medication Sig furosemide (LASIX ORAL) Take by mouth. Given at [facility] ER 09/10/23 HYDROcodone-acetaminophen 2.5-325 mg tab Take 1 tablet by mouth every 6 hours as needed for pain. Given at [facility] ER 09/10/23 POTASSIUM ORAL Take by [...] MIST) 0.65 % nasal spray Use 1 [place] in the nose as needed for cold/allergysymptoms. [...] DATE: September 17, 2023 TIME: 10:42 AM [place] [address]-10-2024 Miscellaneous Notes* Telephone Encounter - Helena Urrutia - 09/17/2023 9:29 AM EDT [employer], request has been sent to [facility]. This PSS also called [facility] and they will triage and call the patient. Patient is aware to expect a call from [facility] to schedule. Helena Urrutia * Telephone Encounter - Isa Godoy LPN - 09/17/2023 8:44 AM EDT Spoke with pt. Regarding results of recent <RI and the suspicion of of possible cancer. Dr. Jenkins would like to have him scheduled at [facility] or [facility] for imaging guided biopsy of the T10 [...] would like to have him scheduled at [facility] or [facility] for imaging guided biopsy of the T10 vertebrae. Richard Jenkins DO documented in this encounterUniversity Hospitals Portage Medical Center06-10-2024 Telephone encounter Note * Telephone Encounter - Helena Urrutia - 09/17/2023 9:29 AM EDT [employer], request has been sent to [facility]. This PSS also called [facility] and they will triage and call the patient. Patient is aware to expect a call from [facility] to schedule. Helena Urrutia [facility]06-10-2024 Telephone encounter Note* Telephone Encounter - Jada Hernández - 09/17/2023 9:06 AM EDTSummary: Bone Biopsy RADIOLOGY CALL CENTER INTAKE DATE: 09/17/23 TIME: 9:10 am REQUESTING STAFF: Dr. Richard Jenkins PHONE/PAGER: [phone] SPECIFICS OF THE REQUEST: (Please be as [...] OF THE REQUEST: MRI Date: 09/10/23 IMAGING: [facility] [place] [facility]06-10-2024 Telephone encounter Note* Telephone Encounter - Isa Godoy LPN - 09/17/2023 8:44 AM EDT Spoke with pt. Regarding results of recent Pt. Voiced understanding. PSS please reach out to get pt. Scheduled. Isa Godoy LPN [facility]06-07-2024 Telephone encounter Note* Telephone Encounter - Richard Jenkins DO - 09/14/2023 6:12 PM EDT When I last saw him, his back was feeling much better from the injury he sustained last fall. However repeat MRI is more suspicious for possible cancer. I would like to have him scheduled at [facility] or [facility] for imaging guided biopsy of the T10 vertebrae. Richard Jenkins DO [facility]06-07-2024 Telephone encounter Note* Telephone Encounter - Alberta Candelaria MA - 09/14/2023 1:19 PM EDT Patient notified and voiced understanding. Alberta Candelaria MA [facility]06-07-2024 Miscellaneous Notes* Telephone Encounter - [...] yet. Usha Mcgovern PA-C documented in this encounterUniversity Hospitals Portage Medical Center06-07-2024 Telephone encounter Note * Telephone [...] on chest xray yet. Usha Mcgovern PA-C [facility]06-06-2024 Telephone encounter Note* Telephone Encounter - Usha Mcgovern PA-C - 09/13/2023 8:13 AM EDT Noted. [facility]06-06-2024 Miscellaneous Notes* Telephone Encounter - [...] abdomen. Alberta Candelaria MA documented in this encounterUniversity Hospitals Portage Medical Center06-06-2024 History of Present illness Narrative* Alix Hong RT(R) - 09/13/2023 8:00 AM EDT Radiology [...] PATIENT PRESENTS WITH AN IMPLANTABLE OR ATTACHED PRAWN TRAWLER HAND: No RADIOLOGY DEPARTMENT: General X-ray: Exam(s) Completed: Chest X-Ray PERIPHERAL IV DATA: Not applicable SIGNED BY: RT Jake(R) September 13, 2023 8:06 AM documented in this encounterUniversity Hospitals Portage Medical Center06-06-2024 Instructions* Patient Instructions* Usha Mcgovern PA-C - 09/13/2023 7:26 AM EDT Please contact cardiology to make sure they are aware of recent diagnosis of pleural effusions. documented in this encounterUniversity Hospitals Portage Medical Center06-06-2024 History of Present illness Narrative* Usha Mcgovern PA-C - 09/13/2023 7:20 AM EDT Chief Complaint Patient presents with: ER F/U: [facility] ER 09/10/23 HPI Jaocb Landa is a 68 year old male [...] of right wrist Coronary 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 Seeing Dr. 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 03/30/2023 Will try pamelor Pleural effusion [...] COLONOSCOPY W/BIOPSY SINGLE/MULTIPLE 02/22/2007 Diminutive polyp distal [id number] ECHO 01/08/2021 EGD 04/15/2020 HEART CATHETERIZATION 12/2018 [...] (LASIX ORAL) Take by mouth. Given at [facility] ER 09/10/23 HYDROcodone-acetaminophen 2.5-325 mg tab Take 1 tablet by mouth every 6 hours as needed for pain. Given at [facility] ER 09/10/23 POTASSIUM ORAL Take by [...] MIST) 0.65 % nasal spray Use 1 [place] in the nose as needed for cold/allergysymptoms. [...] 03/30/2024 Covid-19 Vaccine(2022- season) due on 06/18/2024 BP Controlled (<130/80) [...] METABOLIC PANEL 4. Coronary 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 pectoris- ICD9: 414.01, ICD10: [...] exercise Usha Mcgovern PA-C documented in this encounterUniversity Hospitals Portage Medical Center06-05-2024 Telephone encounter Note * Telephone [...] Advise him he needs to see [place]. [facility]06-05-2024 Telephone encounter Note* Telephone Encounter - Alberta [...] in left lower abdomen. Alberta Candelaria MA [facility]06-03-2024 History of Present illness Narrative* Gloria Sinclair, RT(R) - 09/10/2023 8:40 AM EDT Radiology Service [...] PATIENT PRESENTS WITH AN IMPLANTABLE OR ATTACHED PRAWN TRAWLER HAND: No ALLERGIES: Reviewed and unchanged CONTRAST ALLERGY: NO. EXAM: MRI - CONTRAST TYPE: GROUP II PERIPHERAL IV DATA: Ambulatory: A peripheral IV was started in the Right antecubital site with a Angio cath: 22 gauge. RADIOLOGY DEPARTMENT: MR; Exam(s) Completed: Spine: Thoracic spine SIGNATURE: RT Arlen(R) PATIENT NAME: Jacob Landa DATE: September 10, 2023 TIME: 9:05 AM documented in this encounterUniversity Hospitals Portage Medical Center05-30-2024 History of Present illness Narrative* [...] Patient to be seen for Therapeutic exercise (44566), Neuromuscular re-education (41863), Manual therapy (81813), Therapeutic activities (30468), Self-shelter management (75258), Patient/Family/Caregiver Education PLAN FOR NEXT VISIT: Core [...] Time (minutes): 40 Session Start Time : 1714 Session Stop Time : 175 Tye Flores PT documented in this encounterUniversity Hospitals Portage Medical Center05-05-2024 Telephone encounter Note * Telephone Encounter - Susan Nation - 08/12/2023 12:05 PM EDT Scheduled MRI with patient [facility] Work Phone: 1(716) 866-663605-05-2024 Miscellaneous Notes* Telephone Encounter - Susan Nation - 08/12/2023 12:05 PM EDT Scheduled MRI with patient * Telephone Encounter - Helena Urrutia - 08/10/2023 10:39 AM EDT Check out comments: MRI Thoracic spine when able, OV based on results of MRI documented in this encounterUniversity Hospitals Portage Medical Center05-03-2024 Telephone encounter Note * Telephone Encounter - Helena Urrutia - 08/10/2023 10:39 AM EDT Check out comments: MRI Thoracic spine when able, OV based on results of MRI [facility]05-03-2024 History of Present illness Narrative* Richard Jenkins DO - 08/10/2023 10:11 AM EDT Oncologic problem(s): [...] abdomen: Dedicated CT abdomen pelvis dictated separately. Welder (topogram) images: No additional findings. CT A/P [...] chest CT performed will be reported separately. Welder (topogram) images: No additional findings. EGD/EUS 04/26/2020: [...] carboplatin and paclitaxel. 05/24 through 06/23/2020. Underwent [place] esophagectomy on 08/09/2020. Pathology: 1. 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 Pain was most intense in March. MRI and PET reviewed by several radiologists. Consensus was no evidence of cancer and biopsy not recommended. He was seen at the spine center in [place]. Currently-- Back pain significantly improved after passing kidney stones. Has days without back pain. Still driving for the [employer]. 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 No petechiae. NEUROLOGIC: copy lathe tender II-XII are grossly intact. No focal motor [...] which included preparing to see the patient, [id number] patient care, completing clinical documentation, obtaining and/or reviewing separately obtained history, performing a medically appropriate examination, counseling and educating the pat ient/family/caregiver, ordering medications, tests, or procedures, communicating with other HCPs (not separately reported), and communicating results to the patient/family/caregiver. Richard Jenkins DO documented in this encounterUniversity Hospitals Portage Medical Center04-26-2024 History of Present illness Narrative* [...] PATIENT PRESENTS WITH AN IMPLANTABLE OR ATTACHED PRAWN TRAWLER HAND: No ALLERGIES: Reviewed and unchanged CONTRAST ALLERGY: [...] 2023 TIME: 9:44 AM documented in this encounterUniversity Hospitals Portage Medical Center04-22-2024 History of Present illness Narrative* [...] Planned: 4 Planned Treatment Interventions: Therapeutic exercise (86369), Neuromuscular re- education (47859), Manual therapy (33688), Therapeutic activities (93967), Self- shelter management (25482), Patient/Family/Caregiver Education PLAN FOR NEXT VISIT: Core [...] 1613 Tye Flores, PT documented in this encounterUniversity Hospitals Portage Medical Center04-11-2024 Miscellaneous Notes* Telephone Encounter - Helena Urrutia - 07/19/2023 4:32 PM EDT Spoke with patient and scheduled as directed. Mailed reminder. Helena Urrutia * Telephone Encounter - Richard Jenkins DO - 07/19/2023 3:47 PM EDT Thank you. Filed. * Telephone Encounter - Elvira Noriega LPN - 07/19/2023 3:[address] Masci- please file orders. PSS- please contact patient to schedule CT C/A/P then OV in 3 weeks. Patient is aware of plan of care. Elvira Noriega LPN * Telephone Encounter - Susan Nation - 07/19/2023 11:36 AM EDT Patient states he had appt with spine provider on 07/11 in [place]. He called asking if Dr. Jenkins has been able to review. documented in this encounterUniversity Hospitals Portage Medical Center04-04-2024 History of Present illness Narrative* Jesus Manuel Resendiz PA-C - 07/12/2023 10:34 AM EDT Images from the original note were not included. Jesus Manuel Resendiz PA-C [facility] [address] [address] 07/12/2023 ASSESSMENT AND PLAN: Assessment : Encounter [...] standing up straight and mentioned that he did a little jig in his house to celebrate how well [...] today with this patient visit. This includes mfvw-pu-okke time, review of chart records regarding conservative care history, spine- pertinent imaging, and communication/care coordination with referring provider, problem-specific history-taking and counseling/education regarding treatment options. cc: Richard Jenkins [address] [facility] [id number] Results of consultation to be transmitted via electronic medical record for those providers who practice within [facility] [place] or with access to [employer] via [employer], or via letter. ######################################################################## [...] Lifting stuff will be painful. 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 [...] of right wrist Coronary 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 Seeing Dr. [...] 11/17/2020 Personal history of colonic polyps 12/27/2009 [employer]'s nodules 03/30/2023 Will try pamelor Pleural effusion [...] COLONOSCOPY W/BIOPSY SINGLE/MULTIPLE 02/22/2007 Diminutive polyp distal [id number] ECHO 01/08/2021 EGD 04/15/2020 HEART CATHETERIZATION 12/2018 [...] <AGE 11 Tonsillectomy TOT/SUB ESOPHAGECTOMY W/THORACOT 08/09/2020 [place] esophagectomy, jejunostomy tube placement Social History [...] 124/69, pulse 77, height 177.2 cm (5' 9.75), weight 88 kg (194 lb 0.1 oz), [...] STUDIES: See discussion above documented in this encounterUniversity Hospitals Portage Medical Center03-25-2024 Miscellaneous Notes* Telephone Encounter - [...] continue. Usha Mcgovern PA-C documented in this encounterUniversity Hospitals Portage Medical Center03-22-2024 Miscellaneous Notes* Telephone Encounter - [...] function labs were ok. documented in this encounterUniversity Hospitals Portage Medical Center03-21-2024 History of Present illness Narrative* [...] PATIENT PRESENTS WITH AN IMPLANTABLE OR ATTACHED PRAWN TRAWLER HAND: No CREATININE: Creatinine Date Value Ref Range [...] 11:35 PATIENT DISCHARGED TO: Ambulatory patient, left [place] department area. A Diagnostic radioactive procedure has taken place, with no further precautions necessary other than routine body substance precautions. More information regarding radiation safety can be found usingthis link: [email or web address] SIGNATURE: MIRIAM Giles) PATIENT NAME: Jacob Landa DATE: June 28, 2023 TIME: 13:25 PM PAGER/CONTACT #: documented in this encounterUniversity Hospitals Portage Medical Center03-21-2024 History of Present illness Narrative* [...] PATIENT PRESENTS WITH AN IMPLANTABLE OR ATTACHED PRAWN TRAWLER HAND: No RADIOLOGY DEPARTMENT: Ultrasound PERIPHERAL IV DATA: Not applicable SIGNED BY: Rosa Arteaga RDMS June 28, 2023 12:40 PM documented in this encounterUniversity Hospitals Portage Medical Center03-14-2024 Miscellaneous Notes* Telephone Encounter - [...] 10 mg a day. documented in this encounterUniversity Hospitals Portage Medical Center03-12-2024 History of Present illness Narrative* [...] of right wrist Coronary 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 Seeing Dr. [...] 11/17/2020 Personal history of colonic polyps 12/27/2009 [employer]'s nodules 03/30/2023 Will try pamelor Pleural effusion [...] COLONOSCOPY W/BIOPSY SINGLE/MULTIPLE 02/22/2007 Diminutive polyp distal [id number] ECHO 01/08/2021 EGD 04/15/2020 HEART CATHETERIZATION 12/2018 [...] MIST) 0.65 % nasal spray Use 1 [place] in the nose as needed for cold/allergysymptoms. [...] attention. Usha Mcgovern PA-C documented in this encounterUniversity Hospitals Portage Medical Center03-11-2024 Miscellaneous Notes* Telephone Encounter - Sabrina Hernandez - 06/18/2023 1:48 PM EDT Called patient and scheduled him for first available in [place]. Sabrina Crouch * Telephone Encounter - Isa Godoy LPN - 06/18/2023 12:30 PM EDT Spoke with pt. Informed no evidence of cancer in the biopsies. So, all the workup so far has not shown any clear evidence of recurrent cancer which is great. Dr. Jenkins would like to make a referral to the spine center at [place] for him. Pt. Voiced understanding. Informed he has appt. Tomorrow with Usha Mcgovern because the storm horses are worse ,instructed to keep that appt. To help him get some relief, but our PSS will still make referral to spine center in [place]. That is fine with pt. Isa Godoy LPN * Telephone Encounter - Richard Jenkins DO - 06/18/2023 12:20 PM EDT There was no evidence of cancer in the biopsies. So, all the workup so far has not shown any clear evidence of recurrent cancer which is great. I would like to make a referral to the spine center at [place] for him. Richard Jenkins DO * Telephone [...] Additionally he commented on occasionally having a charley horse in his back on and off. Please advise. Helena Urrutia documented in this encounterUniversity Hospitals Portage Medical Center02-27-2024 NoteHNO ID: [id number] Author: KRISTINE HARRIS APRN.DISTRICT MANAGER POSTAL SERVICE Service: Nursing Author Type: Nurse Repossessor Type: Anesthesia Procedure Notes Filed: 06/05/2023 14:10 Note Text: ANESTHESIOLOGY PROCEDURE NOTE Airway General Information Procedure Start Time/Medication Administration: 06/05/2023 2:03 PM Patient location during procedure: OR Timeout Performed Pre-procedure: timeout performed Consent Obtained: Yes Patient identity confirmed: arm band and patient sedated or unresponsive Staffing Anesthesiologist: Cong Chew MD DISTRICT MANAGER POSTAL SERVICE: Kristine Harris APRN.DISTRICT MANAGER POSTAL SERVICE Performed by: LUNA Indications and Patient Condition Indications for airway [...] no Airway not difficult SIGNATURE: Kristine Harris APRN.DISTRICT MANAGER POSTAL SERVICE PATIENT NAME: Jacob Landa DATE: June 05, 2023 TIME: 2:10 PM CSN: [id number]27[facility] History and physical note* Aruna Mendez APRN.LIFE MANAGEMENT TEACHER - 06/05/2023 1:00 PM EST HISTORY AND [...] Esophageal Adenocarcinoma (Hcc) Coronary Artery Disease Involving [place] Coronary Artery Without Angina Pectoris [place] (Actinic Keratosis) Medicare Annual Wellness Visit, Subsequent Pleural Effusion Advance Directive Discussed With Patient Medication Management Prostate Disorder Decreased Sexual Desire [employer]'s Nodules Primary Insomnia Pre-Op Exam Subjective CHIEF [...] of right wrist Coronary 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 Seeing Dr. 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 03/30/2023 Will try pamelor Pleural effusion [...] COLONOSCOPY W/BIOPSY SINGLE/MULTIPLE 02/22/2007 Diminutive polyp distal [id number] ECHO 01/08/2021 EGD 04/15/2020 HEART CATHETERIZATION 12/2018 [...] <AGE 11 Tonsillectomy TOT/SUB ESOPHAGECTOMY W/THORACOT 08/09/2020 [place] esophagectomy, jejunostomy tube placement FAMILY HISTORY [...] MIST) 0.65 % nasal spray Use 1 [place] in the nose as needed for cold/allergysymptoms. [...] no history of chest pain, palpitations, CHF, MD, cardiac surgery or stents GI: No history [...] kg (193 lb) Height: 175.3 cm (5' 9) Body mass index is 28.5 kg/m . [...] Plan EGD today Coronary 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 Overview Seeing [...] which included preparing to see the patient, whhj-yn-movd patient care, completing clinical documentation, and performing a medically appropriate examination. Instructions Given to Patient: Patient given verbal preop instructions and voices comprehension and compliance. SIGNATURE: Aruna Mendez APRN.CNP PATIENT NAME: Jacob Landa DATE: June 05, 2023 TIME: 12:09 PM PAGER/CONTACT #: documented in this encounterUniversity Hospitals Portage Medical Center02-20-2024 Miscellaneous Notes* Telephone Encounter - Cheryl JonesSusan - 05/29/2023 8:49 AM EST Patient has [...] Thank you. Susan Jones. documented in this encounterUniversity Hospitals Portage Medical Center01-17-2024 NoteHNO ID: [id number] Author: JURGEN BOCANEGRA MD Service: ? Author Type: Physician Type: Progress Notes Filed: 04/26/2023 16:22 Note Text: Jurgen Bocanegra M.D. Surgical Oncology [address] [place] [address], [place] [address] SUBJECTIVE HPI Jacob Landa is a 68 [...] this may be related to when he overdoes it. Review of Systems Constitutional: Positive for malaise/fatigue. [...] of right wrist Coronary 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 Seeing Dr. 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 03/30/2023 Will try pamelor Pleural effusion [...] COLONOSCOPY W/BIOPSY SINGLE/MULTIPLE 02/22/2007 Diminutive polyp distal [id number] ECHO 01/08/2021 EGD 04/15/2020 HEART CATHETERIZATION 12/2018 [...] TONSILLECTOMY PRIMARY/SECONDARY Tonsillectomy TOT/SUB ESOPHAGECTOMY W/THORACOT 08/09/2020 [place] esophagectomy (more content not included)...[facility]01-02-2024 NoteHNO ID: [id number] Author: Dayana Shine RT(R) Service: Nuclear Medicine [...] DIAGNOSTIC CT PERFORMED: No IV SITE: Ambulatory: MA only - direct IV injection in the Right antecubital site POST EXAM PIV STATUS: Discontinued PROCEDURE TYPE: NM INJECT: PET/CT BODY SCAN. 15.0 mCi F18 FDG. No other medications given.. ADMINISTRATION TIME: 1123 PATIENT DISCHARGED TO: Ambulatory patient, left MA department area. A Diagnostic radioactive procedure has taken place, with no further precautions necessary other than routine body substance precautions. More information regarding radiation safety can be found using this link: [email or web address] SIGNATURE: RT Shanice(R) PATIENT NAME: Jacob Landa DATE: April 10, 2023 TIME: 11:52 AM [phone] Miscellaneous Notes* Telephone Encounter - Ruthy Lomeli [...] schedule for a PET scan at a [facility] facility. May have to bump out the office visit with me to after the PET scan. Richard Jenkins DO documented in this encounterUniversity Hospitals Portage Medical Center11-21-2023 History of Present illness Narrative* Jessica Olvera APRN.LIFE MANAGEMENT TEACHER - 02/27/2023 3:07 PM EST This note was created using NoteWriter. Subjective Jacob Landa is a 67 year old male. 67 year old male with PMH CABG, HTN, hyperlipidemia, asthma and GERD presents for illness. 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 Denies dyspnea Denies abdominal pain. Denies N/V/D Utilized home OTC The history is provided by the patient. No aircraft restorer was used. Cough This is a new [...] of right wrist Coronary 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 Seeing Dr. [...] 08/14/2020 History: 65 year old male s/p [place] esophagectomy, Pyloromyotomy, Jejunostomy tube placement for [...] COLONOSCOPY W/BIOPSY SINGLE/MULTIPLE 02/22/2007 Diminutive polyp distal [id number] ECHO 01/08/2021 EGD 04/15/2020 HEART CATHETERIZATION 12/2018 [...] MIST) 0.65 % nasal spray Use 1 [place] in the nose as needed for cold/allergysymptoms. [...] if symptoms persist or worsen. Jessica Olvera APRN.LIFE MANAGEMENT TEACHER documented in this encounterUniversity Hospitals Portage Medical Center11-15-2023 Miscellaneous Notes* Telephone Encounter - [...] patient, there was no answer, left a VM requesting a call back from patient. Please [...] MRI. Richard Jenkins DO documented in this encounterUniversity Hospitals Portage Medical Center11-13-2023 History of Present illness Narrative* Yaw Singh MD - 02/19/2023 8:54 PM EST Patient had to reschedule. documented in this encounterUniversity Hospitals Portage Medical Center11-07-2023 History of Present illness Narrative* Helen Beatrice Pan RT(R) - 02/13/2023 9:20 AM EST Radiology [...] 2023 TIME: 10:20 AM documented in this encounterUniversity Hospitals Portage Medical Center08-16-2023 History of Present illness Narrative* Alberta Candelaria MA - 11/22/2022 1:32 PM EDT Scan on 11/20/2022 9:06 AM by Provider, OPAL Samaniego: Consultation - Cardiology Alberta Candelaria MA documented in this encounterUniversity Hospitals Portage Medical Center05-16-2023 History of Present illness Narrative* [...] abdomen: Dedicated CT abdomen pelvis dictated separately. Welder (topogram) images: No additional findings. CT A/P [...] chest CT performed will be reported separately. Welder (topogram) images: No additional findings. EGD/EUS 04/26/2020: [...] No jaundice or rash. No petechiae. NEUROLOGIC: copy lathe tender II-XII are grossly intact. No focal motor [...] Lymph 1.00 - 4.00 k/uL 0.61 (L) Runnels% % 11.0 Abs Runnels <0.87 k/uL 0.47 Eosin% % 3.5 Abs [...] months. -Follow-up with his PCP and his patient accounts specialist for other healthcare needs including management [...] which included preparing to see the patient, efgf-xw-[id number] patient care, completing clinical documentation, obtaining and/or reviewing separately obtained history, performing a medically appropriate examination, ordering medications, tests, or procedures, and communicating results to the patient/family/caregiver. Richard Jenkins DO documented in this encounterUniversity Hospitals Portage Medical Center05-03-2023 History of Present illness Narrative* [...] of right wrist Coronary 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 Seeing Dr. [...] COLONOSCOPY W/BIOPSY SINGLE/MULTIPLE 02/22/2007 Diminutive polyp distal [id number] ECHO 01/08/2021 EGD 04/15/2020 HEART CATHETERIZATION 12/2018 [...] <AGE 11 Tonsillectomy TOT/SUB ESOPHAGECTOMY W/THORACOT 08/09/2020 [place] esophagectomy, jejunostomy tube placement Family History [...] MIST) 0.65 % nasal spray Use 1 [place] in the nose as needed for cold/allergysymptoms. [...] with specialist 5. Coronary 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 pectoris- ICD9: 414.01, ICD10: [...] months. Usha Mcgovern PA-C documented in this encounterUniversity Hospitals Portage Medical Center04-26-2023 History of Present illness Narrative* Queta Hunt APRN.LIFE MANAGEMENT TEACHER - 08/02/2022 1:55 PM EDT Part of this note was copied from previous note, all content has been individually reviewed, updated as necessary, and thoroughly reviewed. [facility] - OUTPATIENT THORACIC SURGERY CLINIC NOTE PT NAME: Jacob [place] [facility] NO: [id number] THORACIC SURGEON: Renetta Radford M.D. DATE OF SERVICE: 08/02/2022 PRINCIPAL DX: [id number] adenocarcinoma distal esophagus SURGICAL HX: 08/09/2020: [place] esophagectomy, Pyloromyotomy, Jejunostomy tube placement Surgical [...] mucosa and intestinal metaplasia, negative for carcinoma. [facility] 08/13/2020 SYNOPTIC REPORT OF BERRY PATHOLOGIC FINDINGS [...] (98.2 F) (Oral) Ht 177 cm (5' 9.69) Wt 84.5 kg (186 lb 4.8 oz) [...] 67 year old year old male s/p [place] esophagectomy, Pyloromyotomy, Jejunostomy tubeplacement with Dr Renetta Radford on 08/09/2020. Pathology showed ypT3N0 adenocarcinoma distal esophagus. JARAD. PLAN: - Return for EGD in 1 year - Oncology follow up, Dr. Jenkins - Radiation/Oncology, Dr.Lee Queta Gleason APRN.LIFE MANAGEMENT TEACHER documented in this encounterUniversity Hospitals Portage Medical Center04-26-2023 Nurse Note* Nuria Blandon RN [...] RN In Department: GASTROENTEROLOGY documented in this encounterUniversity Hospitals Portage Medical Center03-20-2023 Miscellaneous Notes* Telephone Encounter - Alberta Candelaria MA - 06/26/2022 2:48 PM EDT Patient notified and voiced understanding. Patient given Dr. Verdugo's number Alberta Candelaria MA * Telephone Encounter - aYw Singh MD - 06/26/2022 1:25 PM EDT Patient should make f/u appt with DR. Verdugo. * Telephone Encounter - Montserrat Varner RN - 06/26/2022 12:32 PM EDT Patient calling to say he was in [facility] ER on Friday 06/23 for a kidney stone which he thinks he passed on Sunday afternoon because he had blood in his urine. He no longer has blood in his urine. He says he does not notice any left sided flank pain because he is taking pain medication [place] and Ibuprofen as needed. He was given Dr. Danielle's name for follow up if symptoms don't resolve. He is asking if he should follow up with him or should he schedule ER follow up with PCP? Montserrat Varner RN documented in this encounterUniversity Hospitals Portage Medical Center03-20-2023 History of Present illness Narrative* Sia Triana LPN - 06/26/2022 12:24 PM EDT Scan on 06/23/2022 9:54 PM by External Provider: Consultation - Emergency Medicine Scan on 06/23/2022 6:51 PM by External Provider: CT Scan documented in this encounterUniversity Hospitals Portage Medical Center03-10-2023 Miscellaneous Notes* Telephone Encounter - Kelli Whitehead - 06/16/2022 9:06 AM EST Reason for call: Mr. Landa would like to schedule a f/u appointment with Queta Gleason. Home and cell number [phone] Diagnosis Malignant neoplasm of lower third of esophagus (HCC) eKlli Medina documented in this encounterUniversity Hospitals Portage Medical Center03-03-2023 History of Present illness Narrative* [...] 09, 2022 3:02 PM documented in this encounterUniversity Hospitals Portage Medical Center03-03-2023 History of Present illness Narrative* Yaw Smith APRN.MOHINI - 06/09/2022 2:49 PM EST Images from [...] of right wrist Coronary 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 Seeing Dr. [...] 08/14/2020 History: 65 year old male s/p [place] esophagectomy, Pyloromyotomy, Jejunostomy tube placement for [...] COLONOSCOPY W/BIOPSY SINGLE/MULTIPLE 02/22/2007 Diminutive polyp distal [id number] ECHO 01/08/2021 EGD 04/15/2020 HEART CATHETERIZATION 12/2018 [...] <AGE 11 Tonsillectomy TOT/SUB ESOPHAGECTOMY W/THORACOT 08/09/2020 [place] esophagectomy, jejunostomy tube placement ALLERGIES Environmental Allergies [Other] MEDICATIONS benzonatate (TESSALON PERLE) 100 mg capsule^Take 2 capsules by mouth three times daily as needed.^Disp: 40 capsule^Rfl: 0 guaiFENesin (MUCINEX) 600 mg 12 hr tablet^Take 2 tablets by mouth twice daily.^Disp: 24 tablet^Rfl:0 sodium chloride (SALINE MIST) 0.65 % nasal spray^Use 1 [place] in the nose as needed for cold/allergysymptoms.^Disp: [...] of care. This note was generated using HundredApples software. It may contain errors in wording, punctuation, or spelling. Yaw Smith APRN.MOHINI documented in this encounterUniversity Hospitals Portage Medical Center02-20-2023 Miscellaneous Notes* Telephone Encounter - [...] you. Mari Akhtar APRN.MOHINI documented in this encounterUniversity Hospitals Portage Medical Center02-16-2023 Nurse Note* Isa Valdez LPN - 05/25/2022 9:07 AM EST Est. Pt, 3 month f/u, discuss recent CT and labs. Pt. Had been on Lasix, last September or October ran out, never had refills. Dr. Jenkins OV notes in September 2021 informed to continue Lasix 20 mg daily. Nothing mentioned in October notes Isa Valdez LPN documented in this encounterUniversity Hospitals Portage Medical Center02-16-2023 History of Present illness Narrative* Mari Akhtar APRN.LIFE MANAGEMENT TEACHER - 05/25/2022 8:52 AM EST Chief Complaint [...] abdomen: Dedicated CT abdomen pelvis dictated separately. Welder (topogram) images: No additional findings. CT A/P [...] chest CT performed will be reported separately. Welder (topogram) images: No additional findings. EGD/EUS 04/26/2020: [...] carboplatin and paclitaxel. 05/24 through 06/23/2020. Underwent [place] esophagectomy on 08/09/2020. Pathology: 1. Esophagus [...] valve with trivialAI. No new concerns today. Appetite:Good. Wt. up. Energy level:Some days it's really good. Other days I get my butt kicked. Denies fevers or recent illness. Resp:denies cough [...] (98.2 F) Ht (P) 177 cm (5' 9.69) Wt (P) 88.5 kg(195 lb) BMI (P) [...] k/uL 0.54 (L) 0.51 (L) 0.70 (L) Runnels% % 8.0 7.3 8.3 Abs Runnels <0.87 k/uL 0.32 0.35 0.48 Eosin% % [...] months. -Follow-up with his PCP and his patient accounts specialist for other healthcare needs including management [...] visit. Mari Akhtar APRN.MOHINI documented in this encounterUniversity Hospitals Portage Medical Center02-13-2023 History of Present illness Narrative* Beatrice Zuleta, RT(R) - 05/22/2022 10:40 AM EST Radiology [...] 2022 TIME: 3:54 PM documented in this encounterUniversity Hospitals Portage Medical Center01-12-2023 Miscellaneous Notes* Telephone Encounter - [...] Urine - Blood In-ADULT- documented in this encounterUniversity Hospitals Portage Medical Center12-12-2022 Miscellaneous Notes* Telephone Encounter - Alberta Candelaria MA - 03/20/2022 10:36 AM EST Patient notified and voiced understanding. Alberta Candelaria MA * Telephone Encounter - Yaw Singh MD - 03/19/2022 2:06 PM EST Let patient know his testosterone level was pretty good at 455. I do not feel replacement is needed. documented in this encounterUniversity Hospitals Portage Medical Center12-10-2022 Miscellaneous Notes* Telephone Encounter - Susan Sanchez - 03/18/2022 10:00 AM EST Patient given results and verbalized understanding of instructions given. Susan Sanchez * Telephone Encounter - Susan Sanchez - 03/18/2022 9:59 AM EST ----- Message from Edith Dickson APRN.LIFE MANAGEMENT TEACHER sent at 03/18/2022 9:07 AM EST ----- Please advise patient he tested negative for COVID and Influenza. documented in this encounterUniversity Hospitals Portage Medical Center12-09-2022 History of Present illness Narrative* Dana Humphries APRN.LIFE MANAGEMENT TEACHER - 03/17/2022 1:46 PM EST Subjective HPI [...] of right wrist Coronary 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 Seeing Dr. [...] 08/14/2020 History: 65 year old male s/p [place] esophagectomy, Pyloromyotomy, Jejunostomy tube placement for [...] COLONOSCOPY W/BIOPSY SINGLE/MULTIPLE 02/22/2007 Diminutive polyp distal [id number] ECHO 01/08/2021 EGD 04/15/2020 HEART CATHETERIZATION 12/2018 [...] [place] Roger esophagectomy, jejunostomy tube placement ALLERGIES Environmental [...] (SALINE MIST) 0.65 % nasal spray^Use 1 [place] in the nose as needed for cold/allergysymptoms.^Disp: [...] worsened Dana Humphries APRN.MOHINI documented in this encounterUniversity Hospitals Portage Medical Center11-16-2022 History of Present illness Narrative* [...] abdomen: Dedicated CT abdomen pelvis dictated separately. Welder (topogram) images: No additional findings. CT A/P [...] chest CT performed will be reported separately. Welder (topogram) images: No additional findings. EGD/EUS 04/26/2020: [...] valve with trivialAI. No new concerns today. Appetite:Good. I can taste things again. Wt. up. Energy level:I will have to rest up every 3 days. Denies fevers or recent illness. Resp:denies cough [...] (L) 0.54 (L) 0.54 (L) 0.51 (L) Runnels% % 7.9 11.2 8.0 7.3 Abs Runnels <0.87 k/uL 0.40 0.44 0.32 0.35 Eosin% [...] months. -Follow-up with his PCP and his patient accounts specialist for other healthcare needs including management [...] visit. Mari Akhtar APRN.MOHINI documented in this encounterUniversity Hospitals Portage Medical Center11-15-2022 Miscellaneous Notes* Telephone Encounter - [...] to use. Refills can be sent to [facility] in [place] * Telephone Encounter - Yaw Singh MD [...] him and to where. documented in this encounterUniversity Hospitals Portage Medical Center11-14-2022 History of Present illness Narrative* Reef Beatrice Pan RT(R) - 02/20/2022 9:00 AM EST Radiology [...] 2022 TIME: 12:40 PM documented in this encounterUniversity Hospitals Portage Medical Center11-03-2022 Instructions* Patient Instructions* Yaw Singh MD - 02/09/2022 12:35 PM EDT Consider getting the shingrix vaccine for the prevention of shingles from a local pharmacy. 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 check with oncology to see if any issues taking testosterone replacement if found to be low and if not let Dr. Singh know so test can be ordered. documented in this encounterUniversity Hospitals Portage Medical Center11-03-2022 History of Present illness Narrative* Yaw Singh MD - 02/09/2022 11:20 AM EDT Medicare Yearly Visit Medical B eligibilty date 03/09/19 Date of last exam 01/13/2021 PAST MEDICAL HISTORY PAST MEDICAL HISTORY Diagnosis Date Aortic valve stenosis 07/26/2015 Arthritis ASHD (arteriosclerotic heart disease) 2002 CABG 4 in '03; 3 stents LAD in ' Asthma Atherosclerotic heart disease of [place] coronary artery with other forms of angina pectoris (HCC) Benign neoplasm of colon CAD (coronary artery disease) s/p CABG and multiple stents Calculus of kidney Carpal tunnel syndrome of right wrist Coronary 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 Seeing Dr. [...] 06/01/2020 COLONOSCOPY W/BX 02/22/2007 Diminutive polyp distal [id number] EGD 04/15/2020 HEART CATHETERIZATION 12/2018 with 2 [...] & x2 12/2018 TOT/SUB ESOPHAGECTOMY W/THORACOT 08/09/2020 [place] Roger esophagectomy, jejunostomy tube placement ALLERGIES: Environmental [...] very much. List of current specialists seen: Syrup Machine Laborer- Dr. Noland Oncologist- Dr. Jenkins Thoracic surgery [...] 72 Resp 16 Ht 174 cm (5' 8.5) Wt 83 kg (183 lb) BMI 27.42 [...] in '15 Asthma Atherosclerotic heart disease of [place] coronary artery with other forms of angina pectoris (HCC) Benign neoplasm of colon CAD (coronary artery disease) s/p CABG and multiple stents Calculus of kidney Carpal tunnel syndrome of right wrist Coronary 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 Seeing Dr. Noland Essential hypertension, benign Malignant neoplasm of lower third of esophagus (HCC) 04/15/2020 MRSA (methicillin resistant Staphylococcus aureus) 12/01/2016 treated with course of Linezolid beginning 10/29/16 Nonrheumatic aortic valve disorder On tube feeding diet 08/14/2020 History: 65 year old male s/p [place] esophagectomy, Pyloromyotomy, Jejunostomy tube placement for [...] COLONOSCOPY W/BIOPSY SINGLE/MULTIPLE 02/22/2007 Diminutive polyp distal [id number] ECHO 01/08/2021 EGD 04/15/2020 HEART CATHETERIZATION 12/2018 [...] 71 Resp 16 Ht 174 cm (5' 8.5) Wt 83 kg (183 lb) BMI 27.42 [...] Lymph 1.00 - 4.00 k/uL 0.54 (L) Runnels% % 8.0 Abs R[place] <0.87 k/uL 0.32 Eosin% % 2.3 Abs [...] and regular exercise - Patient was counseled [id number] by myself (the billing provider) for the [...] + TIBC 6. Coronary 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 pectoris- ICD9: 414.01, ICD10: [...] which included preparing to see the patient, hxae-sw-wkoi patient care, completing clinical documentation, performing a medically appropriate examination, counseling and educating the patient/family/caregiver and ordering medications, tests, or procedures. Yaw Singh MD documented in this encounterUniversity Hospitals Portage Medical Center08-25-2022 History of Present illness Narrative* Mari Akhtar, BOATING SAFETY OFFICER.LIFE MANAGEMENT TEACHER - 12/01/2021 9:56 AM EDT Chief Complaint [...] abdomen: Dedicated CT abdomen pelvis dictated separately. Welder (topogram) images: No additional findings. CT A/P [...] chest CT performed will be reported separately. Welder (topogram) images: No additional findings. EGD/EUS 04/26/2020: [...] carboplatin and paclitaxel. 05/24 through 06/23/2020. Underwent [place] esophagectomy on 08/09/2020. Pathology: 1. Esophagus [...] valve with trivialAI. No new concerns today. Appetite:Good. Energy level:Good. Denies fevers or recent illness. Resp:denies cough [...] months. -Follow-up with his PCP and his patient accounts specialist for other healthcare needs including management [...] visit. Mari Akhtar APRN.MOHINI documented in this encounterUniversity Hospitals Portage Medical Center08-10-2022 Miscellaneous Notes* Telephone Encounter - Erin Du LPN - 11/16/2021 3:42 PM EDT Reglan wad D/C in June. Was given symptomatically. He does not need to fill. Pt notified. Erin Du LPN * Telephone Encounter - Sue Padmini - 11/16/2021 2:39 PM EDT Pt called. concerned about medication called metoclopramide 10 mg. He found an empty bottle but assumes he does not need to be on that anymore. Wanted to confirm. documented in this encounterUniversity Hospitals Portage Medical Center08-03-2022 History of Present illness Narrative* Queta Gleason APRN.LIFE MANAGEMENT TEACHER - 11/09/2021 1:03 PM EDT Part of this note was copied from previous note, all content has been individually reviewed, updated as necessary, and thoroughly reviewed. [facility] - OUTPATIENT THORACIC SURGERY CLINIC NOTE PT NAME: Jacob [place] [facility] NO: [id number] THORACIC SURGEON: Renetta Radford M.D. DATE OF [...] mucosa and intestinal metaplasia, negative for carcinoma. [facility] 08/13/2020 SYNOPTIC REPORT OF BERRY PATHOLOGIC FINDINGS [...] F) Resp 16 Ht 177.8 cm (5' 10) Wt 83.5kg (184 lb) SpO2 99% BMI [...] Dr. Jenkins - Radiation/Oncology, Dr.Lee Queta Gleason APRN.LIFE MANAGEMENT TEACHER documented in this encounterUniversity Hospitals Portage Medical Center08-03-2022 Nurse Note* Flory Grant RN [...] RN In Department: GASTROENTEROLOGY documented in this encounterUniversity Hospitals Portage Medical Center07-27-2022 Miscellaneous Notes* Telephone Encounter - Carrie Wang RN - 11/02/2021 1:04 PM EDT Attempted to reach the patient at the contact number that they provided [phone] (home) [phone] (work) . Unable to speak with patient so without identifying the patient the following information was left on their voice mail: Date of procedure, location and report time A message was left informing the patient/patient business center representative they must have a responsible adult [...] Number to call with questions or concerns [phone] Number to call to cancel their procedure [phone] Carrie Wang RN documented in this encounterUniversity Hospitals Portage Medical Center07-27-2022 History of Present illness Narrative* Richard Jenkins, DO - 11/02/2021 10:28 AM EDT Oncologic problem(s): [...] abdomen: Dedicated CT abdomen pelvis dictated separately. Welder (topogram) images: No additional findings. CT A/P [...] chest CT performed will be reported separately. Welder (topogram) images: No additional findings. 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 He has no cardiac symptoms. Stable dyspnea [...] No jaundice or rash. No petechiae. NEUROLOGIC: copy lathe tender II-XII are grossly intact. No focal motor [...] Lymph 1.00 - 4.00 k/uL 0.54 (L) Runnels% % 8.0 Abs Runnels <0.87 k/uL 0.32 Eosin% % 2.3 Abs [...] months. -Follow-up with his PCP and his patient accounts specialist for other healthcare needs including management [...] care. Richard Jenkins DO documented in this encounterUniversity Hospitals Portage Medical Center06-29-2022 History of Present illness Narrative* [...] abdomen: Dedicated CT abdomen pelvis dictated separately. Welder (topogram) images: No additional findings. CT A/P [...] chest CT performed will be reported separately. Welder (topogram) images: No additional findings. EGD/EUS 04/26/2020: [...] oncologic management. Interim history: Appetite doing better. I'm eating seconds. Food has more appeal. No nausea or reflux. Bowels regular. No diarrhea. Improved TRIPATHI. 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 No chest pain [...] temperature source Temporal, height 175.3 cm (5' 9), weight 82.8 kg (182 lb 8 oz), [...] No jaundice or rash. No petechiae. NEUROLOGIC: copy lathe tender II-XII are grossly intact. No focal motor [...] Lymph 1.00 - 4.00 k/uL 0.66 (L) Runnels% % 7.9 Abs Runnels <0.87 k/uL 0.40 Eosin% % 3.2 Abs [...] care. Richard Jenkins DO documented in this encounterUniversity [facility]als [facility]06-27-2022 History of Present illness Narrative* [...] 2021 TIME: 11:56 AM documented in this encounterUniversity Hospitals [facility]06-03-2022 Miscellaneous Notes* Telephone Encounter - Isa Valdez LPN - 09/09/2021 8:14 AM EDT Appt. Notes edited T4 added. Isa Valdez LPN * Telephone Encounter - Richard Jenkins DO - 09/09/2021 7:56 AM EDT Please add T4 to his lab work going forward. Richard Jenkins DO documented in this encounterUniversity Hospitals [facility]06-01-2022 History of Present illness Narrative* Queta Gleason APRN.LIFE MANAGEMENT TEACHER - 09/07/2021 2:22 PM EDT Part of this note was copied from previous note, all content has been individually reviewed, updated as necessary, and thoroughly reviewed. [facility] - OUTPATIENT THORACIC SURGERY CLINIC NOTE PT NAME: Jacob Landa [facility] NO: [id number] THORACIC SURGEON: Renetta Radford M.D. DATE OF [...] mucosa and intestinal metaplasia, negative for carcinoma. [facility] 08/13/2020 SYNOPTIC REPORT OF BERRY PATHOLOGIC FINDINGS [...] (98.1 F) (Oral) Ht 170.2 cm (5' 7) Wt 79.3kg (174 lb 12.8 oz) SpO2 [...] 66 year old year old male s/p [place] esophagectomy, Pyloromyotomy, Jejunostomy tubeplacement with Dr Renetta Radford on 08/09/2020. Pathology showed [id number] adenocarcinoma distal esophagus. JARAD. PLAN: - Protonix BID - TUMS prior to bedtime - Return for EGD in 2 months - Oncology follow up, Dr. Jenkins - Radiation/Oncology, Dr.Lee Queta Gleason APRN.LIFE MANAGEMENT TEACHER documented in this encounterUniversity Hospitals Port[facility]06-01-2022 Nurse Note* Luly Almeida LPN [...] Instructions REFERRAL (RECOMMENDATION): None documented in this encounterUniversity Hospitals [facility]05-18-2022 History of Present illness Narrative* Mari Akhtar APRN.LIFE MANAGEMENT TEACHER - 08/24/2021 8:04 AM EDT Chief Complaint [...] abdomen: Dedicated CT abdomen pelvis dictated separately. Welder (topogram) images: No additional findings. CT A/P [...] chest CT performed will be reported separately. Welder (topogram) images: No additional findings. EGD/EUS 04/26/2020: [...] valve with trivialAI. No new concerns today. Appetite:It's ok-getting better. Energy level:It comes and goes. Denies fevers or recent illness. Resp:denies cough [...] visit. Mari Akhtar APRN.MOHINI documented in this encounterUniversity Hospitals Port[facility] Center04-21-2022 History of Present illness Narrative* HUNTER Santo - 07/28/2021 3:01 PM EDT Social Work Problem Referral Note INFORMATION/REFERRAL : Jacob Landa 66 year old male was referred by [facility] Social Work for the following reason(s): [...] agreeable and denies other needs. F/U APPOINTMENT: PRN HUNTER Santo documented in this encounterUniversity Hospitals Port[facility] Center04-21-2022 History of Present illness Narrative* Samaria Bueno RN - 07/28/2021 3:01 PM EDT Assessment unchanged from 07/27/[address] Jenkins documented in this encounterUniversity Hospitals Port[facility] Center04-21-2022 Miscellaneous Notes* Telephone Encounter - Krystina Quinones LPN - 07/28/2021 8:55 AM EDT Pt notified of same. Krystina Quinones LPN * Telephone Encounter - Usha Mcgovern PA-C - 07/28/2021 8:47 AM EDT Let patient know that his cholesterol and urine results were completely normal. Usha Mcgovern PA-C documented in this encounterUniversity Hospitals Port[facility] Center04-20-2022 History of Present illness Narrative* [...] abdomen: Dedicated CT abdomen pelvis dictated separately. Welder (topogram) images: No additional findings. CT A/P [...] chest CT performed will be reported separately. Welder (topogram) images: No additional findings. EGD/EUS 04/26/2020: [...] carboplatin and paclitaxel. 05/24 through 06/23/2020. Underwent [place] esophagectomy on 08/09/2020. Pathology: 1. Esophagus [...] No jaundice or rash. No petechiae. NEUROLOGIC: copy lathe tender II-XII are grossly intact. No focal motor [...] care. Richard Jenkins DO documented in this encounterUniversity Hospitals Port[facility]05-08-2021 History of Past illness Narrative* Problem Noted Date Resolved Date On tube feeding diet 08/14/2020 01/13/2021 Overview: History: 65 year old male s/p [place] esophagectomy, Pyloromyotomy, Jejunostomy tube placement for [...] of this encounter (statuses as of 07/27/2021) [facility] History of Past illness Narrative* Problem Noted Date Resolved Date On tube feeding diet 08/14/2020 01/13/2021 Overview: History: 65 year old male s/p [place] esophagectomy, Pyloromyotomy, Jejunostomy tube placement for [...] of this encounter (statuses as of 07/28/2021) [facility] History of Past illness Narrative* [...] of this encounter (statuses as of 07/28/2021) [facility] History of Past illness Narrative* [...] of this encounter (statuses as of 07/28/2021) [facility] History of Past illness Narrative* [...] of this encounter (statuses as of 08/04/2021) [facility] History of Past illness Narrative* [...] of this encounter (statuses as of 08/11/2021) [facility] History of Past illness Narrative* [...] of this encounter (statuses as of 08/24/2021) [facility] History of Past illness Narrative* [...] of this encounter (statuses as of 08/25/2021) [facility] History of Past illness Narrative* [...] of this encounter (statuses as of 09/07/2021) [facility] History of Past illness Narrative* Problem Noted Date Resolved Date On tube feeding diet 08/14/2020 01/13/2021 Overview: History: 65 year old male s/p [place] esophagectomy, Pyloromyotomy, Jejunostomy tube placement for [...] of this encounter (statuses as of 09/08/2021) [facility] of Past illness Narrative* [...] of this encounter (statuses as of 09/08/2021) [facility] History of Past illness Narrative* Problem Noted Date Resolved Date On tube feeding diet 08/14/2020 01/13/2021 Overview: History: 65 year old male s/p [place] esophagectomy, Pyloromyotomy, Jejunostomy tube placement for [...] of this encounter (statuses as of 09/09/2021) [facility] History of Past illness Narrative* Problem Noted Date Resolved Date On tube feeding diet 08/14/2020 01/13/2021 Overview: History: 65 year old male s/p [place] esophagectomy, Pyloromyotomy, Jejunostomy tube placement for [...] of this encounter (statuses as of 09/30/2021) [facility] History of Past illness Narrative* Problem Noted Date Resolved Date On tube feeding diet 08/14/2020 01/13/2021 Overview: History: 65 year old male s/p [place] esophagectomy, Pyloromyotomy, Jejunostomy tube placement for [...] of this encounter (statuses as of 10/04/2021) [facility] of Past illness Narrative* Problem Noted Date Resolved Date On tube feeding diet 08/14/2020 01/13/2021 Overview: History: 65 year old male s/p [place] esophagectomy, Pyloromyotomy, Jejunostomy tube placement for [...] of this encounter (statuses as of 10/05/2021) [facility] of Past illness Narrative* [...] of this encounter (statuses as of 10/20/2021) [facility] of Past illness Narrative* Problem Noted Date Resolved Date On tube feeding diet 08/14/2020 01/13/2021 Overview: History: 65 year old male s/p [place] esophagectomy, Pyloromyotomy, Jejunostomy tube placement for [...] of this encounter (statuses as of 11/02/2021) [facility] of Past illness Narrative* Problem Noted Date Resolved Date On tube feeding diet 08/14/2020 01/13/2021 Overview: History: 65 year old male s/p [place] esophagectomy, Pyloromyotomy, Jejunostomy tube placement for [...] of this encounter (statuses as of 11/02/2021) [facility] of Past illness Narrative* Problem Noted Date Resolved Date On tube feeding diet 08/14/2020 01/13/2021 Overview: History: 65 year old male s/p [place] esophagectomy, Pyloromyotomy, Jejunostomy tube placement for [...] of this encounter (statuses as of 11/09/2021) [facility] of Past illness Narrative* Problem Noted Date Resolved Date On tube feeding diet 08/14/2020 01/13/2021 Overview: History: 65 year old male s/p [place] esophagectomy, Pyloromyotomy, Jejunostomy tube placement for [...] of this encounter (statuses as of 11/10/2021) [facility] of Past illness Narrative* Problem Noted Date Resolved Date On tube feeding diet 08/14/2020 01/13/2021 Overview: History: 65 year old male s/p [place] esophagectomy, Pyloromyotomy, Jejunostomy tube placement for [...] of this encounter (statuses as of 11/16/2021) [facility] of Past illness Narrative* Problem Noted Date Resolved Date On tube feeding diet 08/14/2020 01/13/2021 Overview: History: 65 year old male s/p [place] esophagectomy, Pyloromyotomy, Jejunostomy tube placement for [...] of this encounter (statuses as of 12/02/2021) [facility] of [facility] illness Narrative* Problem Noted Date Resolved Date On tube feeding diet 08/14/2020 01/13/2021 Overview: History: 65 year old male s/p [place] esophagectomy, Pyloromyotomy, Jejunostomy tube placement for [...] of this encounter (statuses as of 02/09/2022) [facility] illness Narrative* [...] of this encounter (statuses as of 02/22/2022) [facility] of Past illness Narrative* Problem Noted Date Resolved Date On tube feeding diet 08/14/2020 01/13/2021 Overview: History: 65 year old male s/p [place] esophagectomy, Pyloromyotomy, Jejunostomy tube placement for [...] of this encounter (statuses as of 02/24/2022) [facility] illness Narrative* [...] of this encounter (statuses as of 03/17/2022) [facility] Past illness Narrative* [...] of this encounter (statuses as of 03/18/2022) [facility] of Past illness Narrative* Problem Noted Date Resolved Date On tube feeding diet 08/14/2020 01/13/2021 Overview: History: 65 year old male s/p [place] esophagectomy, Pyloromyotomy, Jejunostomy tube placement for [...] of this encounter (statuses as of 03/20/2022) [facility] illness Narrative* [...] of this encounter (statuses as of 04/21/2022) [facility] of [facility] illness Narrative* Problem Noted Date Resolved Date On tube feeding diet 08/14/2020 01/13/2021 Overview: History: 65 year old male s/p [place] esophagectomy, Pyloromyotomy, Jejunostomy tube placement for [...] of this encounter (statuses as of 05/25/2022) [facility] Narrative* [...] of this encounter (statuses as of 05/29/2022) [facility] Narrative* Problem Noted Date Resolved Date On tube feeding diet 08/14/2020 01/13/2021 Overview: History: 65 year old male s/p [place] esophagectomy, Pyloromyotomy, Jejunostomy tube placement for [...] of this encounter (statuses as of 06/09/2022) [facility] Narrative* [...] of this encounter (statuses as of 06/16/2022) [facility] Narrative* [...] of this encounter (statuses as of 06/26/2022) [facility] Narrative* [...] of this encounter (statuses as of 08/02/2022) [facility] Narrative* [...] of this encounter (statuses as of 08/03/2022) [facility] Narrative* Problem Noted Date Resolved Date On tube feeding diet 08/14/2020 01/13/2021 Overview: History: 65 year old male s/p [place] esophagectomy, Pyloromyotomy, Jejunostomy tube placement for [...] of this encounter (statuses as of 08/09/2022) [facility] Narrative* [...] of this encounter (statuses as of 08/22/2022) [facility] Narrative* Problem Noted Date Diagnosed Date Resolved Date On tube feeding diet 08/14/2020 021 Overview: History: 65 year old male s/p [place] esophagectomy, Pyloromyotomy, Jejunostomy tube placement for [...] of this encounter (statuses as of 11/23/2022) [facility] Narrative* [...] of this encounter (statuses as of 02/11/2023) [facility] Narrative* Problem Noted Date Diagnosed Date Resolved Date On tube feeding diet 08/14/2020 021 Overview: History: 65 year old male s/p [place] esophagectomy, Pyloromyotomy, Jejunostomy tube placement for [...] of this encounter (statuses as of 02/11/2023) [facility] Narrative* Problem Noted Date Diagnosed Date Resolved Date On tube feeding diet 08/14/2020 021 Overview: History: 65 year old male s/p [place] esophagectomy, Pyloromyotomy, Jejunostomy tube placement for [...] of this encounter (statuses as of 02/11/2023) [facility] Narrative* [...] of this encounter (statuses as of 02/11/2023) [facility] Narrative* Problem Noted Date Diagnosed Date Resolved Date On tube feeding diet 08/14/2020 021 Overview: History: 65 year old male s/p [place] esophagectomy, Pyloromyotomy, Jejunostomy tube placement for [...] of this encounter (statuses as of 02/13/2023) [facility] Narrative* [...] of this encounter (statuses as of 02/14/2023) [facility] Narrative* [...] of this encounter (statuses as of 02/14/2023) [facility] Narrative* [...] of this encounter (statuses as of 02/20/2023) [facility] Narrative* [...] of this encounter (statuses as of 02/21/2023) [facility] Narrative* [...] of this encounter (statuses as of 02/28/2023) [facility] Narrative* Problem Noted Date Diagnosed Date Resolved Date On tube feeding diet 08/14/2020 021 Overview: History: 65 year old male s/p [place] esophagectomy, Pyloromyotomy, Jejunostomy tube placement for [...] of this encounter (statuses as of 03/30/2023) [facility] Narrative* Problem Noted Date Diagnosed Date Resolved Date On tube feeding diet 08/14/2020 021 Overview: History: 65 year old male s/p [place] esophagectomy, Pyloromyotomy, Jejunostomy tube placement for [...] of this encounter (statuses as of 05/28/2023) [facility] Narrative* [...] of this encounter (statuses as of 05/29/2023) [facility] Narrative* [...] of this encounter (statuses as of 06/06/2023) [facility] Narrative* [...] of this encounter (statuses as of 06/18/2023) [facility] Narrative* Problem Noted Date Diagnosed Date Resolved Date On tube feeding diet 08/14/2020 021 Overview: History: 65 year old male s/p [place] esophagectomy, Pyloromyotomy, Jejunostomy tube placement for [...] of this encounter (statuses as of 06/19/2023) [facility] Narrative* Problem Noted Date Diagnosed Date Resolved Date On tube feeding diet 08/14/2020 021 Overview: History: 65 year old male s/p [place] esophagectomy, Pyloromyotomy, Jejunostomy tube placement for [...] of this encounter (statuses as of 06/21/2023) [facility] Narrative* Problem Noted Date Diagnosed Date Resolved Date On tube feeding diet 08/14/2020 021 Overview: History: 65 year old male s/p [place] esophagectomy, Pyloromyotomy, Jejunostomy tube placement for [...] of this encounter (statuses as of 06/29/2023) [facility] Narrative* Problem Noted Date Diagnosed Date Resolved Date On tube feeding diet 08/14/2020 021 Overview: History: 65 year old male s/p [place] esophagectomy, Pyloromyotomy, Jejunostomy tube placement for [...] of this encounter (statuses as of 06/29/2023) [facility] Narrative* [...] of this encounter (statuses as of 06/29/2023) [facility] Narrative* [...] of this encounter (statuses as of 07/02/2023) [facility] Narrative* Problem Noted Date Diagnosed Date Resolved Date On tube feeding diet 08/14/2020 021 Overview: History: 65 year old male s/p [place] esophagectomy, Pyloromyotomy, Jejunostomy tube placement for [...] of this encounter (statuses as of 07/13/2023) [facility] Narrative* Problem Noted Date Diagnosed Date Resolved Date On tube feeding diet 08/14/2020 Overview: History: 65 year old male s/p [place] esophagectomy, Pyloromyotomy, Jejunostomy tube placement for [...] of this encounter (statuses as of 07/20/2023) [facility] NoteHNO ID: [id number] Author: Renetta Radford Service: ? Author Type: [...] a cardiac risk assessment from his primary patient accounts specialist and will then plan to see him back following completion of therapy for restaging and surgical planning. ? Plan: 1) Cards clearance from primary patient accounts specialist 2) RTC following completion of induction therapy for restaging and surgical planning ? Today's visit 07/14/2020 BP 135/78 (BP Site: Left Arm, BP Position: Sitting, BP Cuff Size: Large Adult) Pulse 100 Resp 16 Ht 177.8 cm (5' 10) Wt 108 kg (238 lb) SpO2 97% [...] visit with restaging testing on July 09 [facility] or July [address] Chest/Abd/Pelvis Anticipated OR Date: 08/09/2020 MAIN [facility] 08/06/2020 MAIN COVID 08/06/2020 MAIN ? Alisa Estrada RN ? Stress Test 06/25/2020 Conclusion: Normal exercise myocardial perfusion stress test at a moderate workload with no evidence of ischemia. Good functional capacity. No angina noted. ? OPD note 06/25/2020 Hem/Onc ? ?04-07-2021 NoteHNO ID: [id number] Author: Barry Shaw (Tech) Service: Radiology Author Type: Special Education Case Manager Type: Progress Notes Filed: 07/14/2020 12:10 PM [...] BY: Barry Shaw July 14, 2020 12:10 PM04-07-2021 NoteHNO ID: [id number] Author: Jordana Dong) MICHELE Jeffries Service: Radiology Author Type: Registered Nurse Type: [...] Landa DATE: July 14, 2020 TIME: 11:09 [facility]11-25-2019 Evaluation note* Diagnosis Onset Date Resolution Status Adenocarcinoma of esophagus chronic Atherosclerosis of coronary artery of [place] heart without angina pectoris chronic Hyperlipidemia chronic History of aortic valve replacement March 03 9 resolved [facility] Work Phone: Consult note Author Tawny Covington [facility] Note Date/Time June 30, 2024 10: 16am [facility] Medical Records Department [address] [place] [address] Anesthesia Postop Eval II 06/30/24 1015 MR#: [id number] Acct: [id number] Name: JACOB LANDA Rep #:[id number] : [id number] 69 From: Tawny Covington PCP: Dr. 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 respirations Mental status Awake,Calm 06/30/24 09:34 DISTRICT MANAGER [employer]AL SERVICE.PKEL nausea No 06/30/24 09:34 DISTRICT MANAGER [employer]AL SERVICE.PKEL Vomiting No 06/30/24 09:34 DISTRICT MANAGER POSTAL SERVICE.PKEL Anesthesia Postop Eval I: Fluid Summary Crystalloid volume administer 250 06/30/24 09:34 DISTRICT MANAGER POSTAL SERVICE.PKEL (ml) Colloids volume administered ( ml) Blood Product volume administered (ml) Total IV fluid infused 250 06/30/24 09:34 DISTRICT MANAGER POSTAL SERVICE.PKEL Anesthesia Postop Eval I: Summary Notes Anesthesia Complication Yes 06/30/24 09:34 DISTRICT MANAGER POSTAL SERVICE.PKEL Anesthesia Complication right nares with 06/30/24 09:34 DISTRICT MANAGER POSTAL SERVICE.[email or web address] Comment: epistaxis from npa Post-operative progress note Anesthesia: Postop Eval II Evaluation Mental status: Awake Pain Level: 2 nausea: No Vomiting: No 06/30/24 1016 <Electronically signed by Tawny dickson> Date _ Tawny Santos Signature: Date CC: ~ Signed [facility] Work Phone: Evaluation note* Diagnosis Aortic valve stenosis, etiology of cardiac valve disease unspecified documented in this encounter [facility] Work Phone: Evaluation note* Diagnosis Severe aortic stenosis Aortic valve disorders Coronary 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 pectoris Essential hypertension Unspecified [...] unspecified Other hypervolemia documented [facility] this [facility] Diagnosis Esophageal adenocarcinoma (HCC)- Primary Malignant neoplasm of esophagus, unspecified site Malignant neoplasm of lower third of esophagus (HCC) Malignant neoplasm of lower third of esophagus documented in this encounter [facility] note* Diagnosis Malignant neoplasm of lower third of esophagus (HCC)- Primary Malignant neoplasm of lower third of esophagus documented in this encounter [facility] note* Diagnosis Esophageal adenocarcinoma (HCC)- Primary Malignant neoplasm of esophagus, unspecified site Malignant neoplasm of lower third of esophagus (HCC) Malignant neoplasm of lower third of esophagus documented in this encounter [facility] note* Diagnosis Esophageal adenocarcinoma (HCC)- Primary Malignant neoplasm of esophagus, unspecified site documented in this encounter [facility] note* Diagnosis Esophageal adenocarcinoma (HCC)- Primary Malignant neoplasm of esophagus, unspecified site Malignant neoplasm of lower third of esophagus (HCC) Malignant neoplasm of lower third of esophagus [facility] Diagnosis Malignant neoplasm of lower third of esophagus (HCC)- Primary Malignant neoplasm of lower third of esophagus Duodenal ulcer Duodenal ulcer, unspecified as acute or chronic, without hemorrhage, perforation, or obstruction documented in this encounter [facility] note* Diagnosis Malignant neoplasm of lower third of esophagus (HCC) Malignant neoplasm of lower third of esophagus [facility] this [facility] Diagnosis Esophageal adenocarcinoma (HCC)- Primary Malignant neoplasm of esophagus, unspecified site Malignant neoplasm of lower third of esophagus (HCC) Malignant neoplasm of lower third of esophagus [facility] this [facility]* Diagnosis Esophageal adenocarcinoma (HCC)- Primary Malignant neoplasm of esophagus, unspecified site Acquired hypothyroidism Unspecified hypothyroidism Iron deficiency anemia due to chronic blood loss Iron deficiency anemia secondary to blood loss (chronic) documented in this encounter [facility] note* Diagnosis Malignant neoplasm of lower third of esophagus (HCC) Malignant neoplasm of lower third of esophagus Pleural effusion Unspecified pleural effusion documented in this encounter [facility] note* Diagnosis Malignant neoplasm of lower third of esophagus (HCC)- Primary Malignant neoplasm of lower third of esophagus Pleural effusion Unspecified pleural effusion documented [facility] this [facility]* Diagnosis Esophageal adenocarcinoma (HCC)- Primary Malignant neoplasm of esophagus, unspecified site Malignant neoplasm of lower third of esophagus (HCC) Malignant neoplasm of lower third of esophagus documented [facility] this [facility]* Diagnosis Malignant neoplasm of lower third of esophagus (HCC)- Primary Malignant neoplasm of lower third of esophagus [facility] Diagnosis Malignant neoplasm of lower third of esophagus (HCC)- Primary Malignant neoplasm of lower third of esophagus [facility] Diagnosis Malignant neoplasm of lower third of esophagus (HCC) Malignant neoplasm of lower third of esophagus [facility] Diagnosis Malignant neoplasm of lower third of esophagus (HCC)- Primary Malignant neoplasm of lower third of esophagus [facility] Diagnosis Medicare annual wellness visit, subsequent- Primary Routine general medical examination at a [facility] care facility Essential hypertension, benign Mixed hyperlipidemia Gastroesophageal reflux disease, unspecified whether esophagitis present Iron deficiency anemia due to chronic blood loss Iron deficiency anemia secondary to blood loss (chronic) Coronary 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 pectoris Aortic valve stenosis, [...] single bacterial disease [facility] Diagnosis Malignant neoplasm of lower third of esophagus (HCC)- Primary Malignant neoplasm of lower third of esophagus [facility] Diagnosis Sinus congestion- Primary Other diseases of nasal cavity and sinuses Acute cough [facility] Diagnosis Malignant neoplasm of lower third of esophagus (HCC)- Primary Malignant neoplasm of lower third of esophagus [facility] Diagnosis Rib injury- Primary Sprain of ribs [facility] Diagnosis Malignant neoplasm of lower third of esophagus (HCC)- Primary Malignant neoplasm of lower third of esophagus [facility] Diagnosis Esophageal adenocarcinoma (HCC)- Primary Malignant neoplasm of esophagus, unspecified site Malignant neoplasm of lower third of esophagus (HCC) Malignant neoplasm of lower third of esophagus [facility] Diagnosis Essential hypertension, benign- Primary Mixed hyperlipidemia Gastroesophageal reflux disease, unspecified whether esophagitis present Esophageal adenocarcinoma (HCC) Malignant neoplasm of esophagus, unspecified site Coronary 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 pectoris S/P CABG x 4 Postsurgical aortocoronary bypass status Malignant neoplasm of lower third of esophagus (HCC) Malignant neoplasm of lower third of esophagus Iron deficiency anemia due to chronic blood loss Iron deficiency anemia secondary to blood loss (chronic) Benign prostatic hyperplasia, unspecified whether lower urinary tract symptoms present [facility] Diagnosis Malignant neoplasm of lower third of esophagus (HCC)- Primary Malignant neoplasm of lower third of esophagus documented [facility] this [facility] noteNo assessment information availableWMercy [facility] Work Phone: Evaluation note* Diagnosis Malignant neoplasm of lower third of esophagus (HCC) Malignant neoplasm of lower third of esophagus [facility] Diagnosis Malignant neoplasm of lower third of esophagus (HCC) Malignant neoplasm of lower third of esophagus documented in this encounter [facility]* Diagnosis Malignant neoplasm of lower third of esophagus (HCC)- Primary Malignant neoplasm of lower third of esophagus [facility] Diagnosis Malignant neoplasm of lower third of esophagus (HCC) Malignant neoplasm of lower third of esophagus documented in this encounter [facility]* Diagnosis APPOINTMENT CANCELLED- Primary documented in this [facility]* Diagnosis Esophageal adenocarcinoma (HCC)- Primary Malignant neoplasm of esophagus, unspecified site Compression fracture of thoracic vertebra, unspecified thoracic vertebral level, initial encounter (HCC) documented in this [facility]* Diagnosis Rhinosinusitis- Primary Unspecified sinusitis (chronic) [facility] Diagnosis Malignant neoplasm of lower third of esophagus (HCC)- Primary Malignant neoplasm of lower third of esophagus [facility] Diagnosis Malignant neoplasm of esophagus, unspecified location (HCC)- Primary [facility] Diagnosis Malignant neoplasm of esophagus, unspecified location (HCC) Pre-op exam Preoperative examination, unspecified Malignant neoplasm of lower third of esophagus (HCC) Malignant neoplasm of lower third of esophagus Essential hypertension, benign Mixed hyperlipidemia Coronary 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 pectoris Gastroesophageal reflux disease, [...] third of esophagus Coronary 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 Pre-op exam Preoperative examination, unspecified [facility] Diagnosis Closed wedge compression fracture of T10 vertebra with routine healing, subsequent encounter- [facility] Diagnosis RUQ pain- Primary Abdominal pain, right upper quadrant Nausea Nausea alone Chronic midline low back pain without sciatica Intertrigo Other specified erythematous condition [facility] Diagnosis RUQ pain Abdominal pain, right upper quadrant Nausea Nausea alone [facility] Diagnosis RUQ pain Abdominal pain, right upper quadrant Nausea Nausea alone [facility]* Diagnosis Strain of thoracic paraspinal muscles excluding T1 and T2 levels, sequela- Primary Closed wedge compression fracture of T10 vertebra with routine healing, subsequent encounter Malignant neoplasm of lower third of esophagus (HCC) Malignant neoplasm of lower third of esophagus Kyphosis (acquired) (postural) [facility] Diagnosis Malignant neoplasm of lower third of esophagus (HCC)- Primary Malignant neoplasm of lower third of esophagus [facility] Diagnosis Closed wedge compression fracture of [...] and respiratory abnormality Coronary 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 pectoris Essential hypertension, benign [facility] Diagnosis Elevated serum creatinine- Primary Other nonspecific findings on examination of blood Nephrolithiasis Calculus of kidney [facility]* Diagnosis Malignant neoplasm of lower third of esophagus (HCC)- Primary Malignant neoplasm of lower third of esophagus Abnormal MRI, spine Nonspecific (abnormal) findings on radiological and other examination of musculoskeletal system [facility] Diagnosis Ascending aorta dilation (HCC)- [...] whether esophagitis present Coronary 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 pectoris Ascending aorta dilation [...] of other medications [facility] Diagnosis Mixed hyperlipidemia- Primary Coronary 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 pectoris [facility] Diagnosis Pleural effusion- Primary Unspecified pleural effusion Chronic heart failure with preserved ejection fraction (HCC) [facility] this 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 Pre-op exam Preoperative examination, unspecified Pleural effusion Unspecified pleural effusion TRIPATHI (dyspnea on exertion) Other dyspnea and respiratory abnormality [facility] Diagnosis Malignant neoplasm of esophagus, unspecified location (HCC) Pre-op exam Preoperative examination, unspecified Malignant neoplasm of lower third of esophagus (HCC) Malignant neoplasm of lower third of esophagus Essential hypertension, benign Mixed hyperlipidemia Coronary 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 pectoris Gastroesophageal reflux disease, [...] third of esophagus Coronary 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 Excessive bleeding- Primary [facility] Diagnosis Rib injury Sprain of ribs Malignant neoplasm of esophagus, unspecified location (HCC) Pre-op exam Preoperative examination, unspecified Malignant neoplasm of lower third of esophagus (HCC) Malignant neoplasm of lower third of esophagus Essential hypertension, benign Mixed hyperlipidemia Coronary 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 pectoris Gastroesophageal reflux disease, unspecified whether esophagitis present Aortic valve stenosis, etiology of cardiac valve disease unspecified [facility] Diagnosis Malignant neoplasm of esophagus, unspecified location (HCC) Pre-op exam Preoperative examination, unspecified Malignant neoplasm of lower third of esophagus (HCC) Malignant neoplasm of lower third of esophagus Essential hypertension, benign Mixed hyperlipidemia Coronary 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 pectoris Gastroesophageal reflux disease, [...] third of esophagus Coronary 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 Pressure injury of buttock, stage 2, unspecified laterality (HCC)- Primary CKD (chronic kidney disease) stage 4, GFR 15-29 ml/min (HCC) Chronic kidney disease, Stage IV (severe) 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 [facility] Diagnosis Malignant neoplasm of esophagus, unspecified location (HCC) Pre-op exam Preoperative examination, unspecified Malignant neoplasm of lower third of esophagus (HCC) Malignant neoplasm of lower third of esophagus Essential hypertension, benign Mixed hyperlipidemia Coronary 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 pectoris Gastroesophageal reflux disease, [...] third of esophagus Coronary 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 Heart failure, unspecified HF chronicity, unspecified heart failure type (HCC)- Primary [facility] Diagnosis Malignant neoplasm of esophagus, unspecified location (HCC) Pre-op exam Preoperative examination, unspecified 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 Essential hypertension, benign Mixed hyperlipidemia Coronary 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 pectoris Gastroesophageal reflux disease, [...] third of esophagus Coronary 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 Anemia, unspecified type- Primary [facility] Diagnosis Malignant neoplasm of esophagus, unspecified location (HCC) Pre-op exam Preoperative examination, unspecified 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 Essential hypertension, benign Mixed hyperlipidemia Coronary 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 pectoris Gastroesophageal reflux disease, [...] third of esophagus Coronary 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)- Primary Malignant neoplasm of lower third of esophagus Early satiety Nausea Nausea alone Anemia, unspecified type [facility] Diagnosis Malignant neoplasm of esophagus, unspecified location (HCC) Pre-op exam Preoperative examination, unspecified 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 Essential hypertension, benign Mixed hyperlipidemia Coronary 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 pectoris Gastroesophageal reflux disease, [...] third of esophagus Coronary 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 Healing pressure injury, stage 1- Primary [facility] Diagnosis Malignant neoplasm of esophagus, unspecified location (HCC) Pre-op exam Preoperative examination, unspecified 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 Essential hypertension, benign Mixed hyperlipidemia Coronary 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 pectoris Gastroesophageal reflux disease, [...] third of esophagus Coronary 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 Early satiety Nausea Nausea alone [facility] Diagnosis Malignant neoplasm of esophagus, unspecified location (HCC) Pre-op exam Preoperative examination, unspecified Malignant neoplasm of lower third of esophagus (HCC) Malignant neoplasm of lower third of esophagus Essential hypertension, benign Mixed hyperlipidemia Coronary 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 pectoris Gastroesophageal reflux disease, [...] third of esophagus Coronary 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 Early satiety Nausea Nausea alone [facility] Diagnosis Malignant neoplasm of esophagus, unspecified location (HCC) Pre-op exam Preoperative examination, unspecified Malignant neoplasm of lower third of esophagus (HCC) Malignant neoplasm of lower third of esophagus Essential hypertension, benign Mixed hyperlipidemia Coronary 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 pectoris Gastroesophageal reflux disease, [...] third of esophagus Coronary 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 Pleural effusion- Primary Unspecified pleural effusion Lung nodules Other nonspecific abnormal finding of lung field Seasonal allergies Allergic rhinitis, cause unspecified Oral thrush Candidiasis of mouth [facility] Diagnosis Malignant neoplasm of esophagus, unspecified location (HCC) Pre-op exam Preoperative examination, unspecified Malignant neoplasm of lower third of esophagus (HCC) Malignant neoplasm of lower third of esophagus Essential hypertension, benign Mixed hyperlipidemia Coronary 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 pectoris Gastroesophageal reflux disease, [...] third of esophagus Coronary 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 Medicare annual wellness visit, subsequent- Primary Routine general medical examination at a health care facility Essential hypertension, benign Mixed hyperlipidemia Coronary 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 pectoris Aortic valve stenosis, [...] of other medications [facility] Diagnosis Malignant neoplasm of esophagus, unspecified location (HCC) Pre-op exam Preoperative examination, unspecified 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 Essential hypertension, benign Mixed hyperlipidemia Coronary 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 pectoris Gastroesophageal reflux disease, [...] third of esophagus Coronary 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 [facility] Diagnosis Malignant neoplasm of esophagus, unspecified location (HCC) Pre-op exam Preoperative examination, unspecified Malignant neoplasm of lower third of esophagus (HCC) Malignant neoplasm of lower third of esophagus Essential hypertension, benign Mixed hyperlipidemia Coronary 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 pectoris Gastroesophageal reflux disease, unspecified whether esophagitis present Aortic valve stenosis, etiology of cardiac valve disease unspecified Essential hypertension, benign S/P CABG x 4 Postsurgical aortocoronary bypass status Mixed hyperlipidemia Asthma Unspecified asthma GERD (gastroesophageal reflux disease) Esophageal reflux 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)- Primary Malignant neoplasm of lower third of esophagus Closed wedge compression fracture of T10 vertebra with delayed healing, subsequent encounter [facility] Diagnosis Malignant neoplasm of esophagus, unspecified location (HCC) Pre-op exam Preoperative examination, unspecified 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 Essential hypertension, benign Mixed hyperlipidemia Coronary 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 pectoris Gastroesophageal reflux disease, unspecified whether esophagitis present Aortic valve stenosis, etiology of cardiac valve disease unspecified Essential hypertension, benign S/P CABG x 4 Postsurgical aortocoronary bypass status Mixed hyperlipidemia Asthma Unspecified asthma GERD (gastroesophageal reflux disease) Esophageal reflux 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 Secondary infection of skin- Primary Other specified local infections of skin and subcutaneous tissue Dog scratch Other and unspecified superficial injury of other, multiple, and unspecified sites, without mention of infection Need for tetanus booster Need for prophylactic vaccination with tetanus toxoid alone [facility] Diagnosis Malignant neoplasm of esophagus, unspecified location (HCC) Pre-op exam Preoperative examination, unspecified 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 Essential hypertension, benign Mixed hyperlipidemia Coronary 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 pectoris Gastroesophageal reflux disease, unspecified whether esophagitis present Aortic valve stenosis, etiology of cardiac valve disease unspecified Essential hypertension, benign S/P CABG x 4 Postsurgical aortocoronary bypass status Mixed hyperlipidemia Asthma Unspecified asthma GERD (gastroesophageal reflux disease) Esophageal reflux 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 Closed wedge compression fracture of T10 vertebra with delayed healing, subsequent encounter [facility] Malignant neoplasm of esophagus, unspecified location (HCC) Pre-op exam Preoperative examination, unspecified 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 Essential hypertension, benign Mixed hyperlipidemia Coronary 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 pectoris Gastroesophageal reflux disease, unspecified whether esophagitis present Aortic valve stenosis, etiology of cardiac valve disease unspecified Essential hypertension, benign S/P CABG x 4 Postsurgical aortocoronary bypass status Mixed hyperlipidemia Asthma Unspecified asthma GERD (gastroesophageal reflux disease) Esophageal reflux 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 ESRD on dialysis (HCC)- Primary End stage renal disease Pre-transplant evaluation for ESRD (end stage renal disease) Other specified pre-operative examination [facility] Diagnosis Malignant neoplasm of esophagus, unspecified location (HCC) Pre-op exam Preoperative examination, unspecified Malignant neoplasm of lower third of esophagus (HCC) Malignant neoplasm of lower third of esophagus Essential hypertension, benign Mixed hyperlipidemia Coronary 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 pectoris Gastroesophageal reflux disease, unspecified whether esophagitis present Aortic valve stenosis, etiology of cardiac valve disease unspecified Essential hypertension, benign S/P CABG x 4 Postsurgical aortocoronary bypass status Mixed hyperlipidemia Asthma Unspecified asthma GERD (gastroesophageal reflux disease) Esophageal reflux 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 Pre-transplant evaluation for kidney transplant- Primary Other specified pre-operative examination [facility] Diagnosis Malignant neoplasm of esophagus, unspecified location (HCC) Pre-op exam Preoperative examination, unspecified 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 Essential hypertension, benign Mixed hyperlipidemia Coronary 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 pectoris Gastroesophageal reflux disease, unspecified whether esophagitis present Aortic valve stenosis, etiology of cardiac valve disease unspecified Essential hypertension, benign S/P CABG x 4 Postsurgical aortocoronary bypass status Mixed hyperlipidemia Asthma Unspecified asthma GERD (gastroesophageal reflux disease) Esophageal reflux 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 Dietary counseling and surveillance- Primary Dietary surveillance and counseling Awaiting organ transplant Awaiting organ transplant status [facility] Diagnosis Malignant neoplasm of esophagus, unspecified location (HCC) Pre-op exam Preoperative examination, unspecified 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 Essential hypertension, benign Mixed hyperlipidemia Coronary 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 pectoris Gastroesophageal reflux disease, unspecified whether esophagitis present Aortic valve stenosis, etiology of cardiac valve disease unspecified Essential hypertension, benign S/P CABG x 4 Postsurgical aortocoronary bypass status Mixed hyperlipidemia Asthma Unspecified asthma GERD (gastroesophageal reflux disease) Esophageal reflux 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 Pre-transplant evaluation for end stage renal disease- Primary Other specified pre-operative examination [facility] Diagnosis Malignant neoplasm of esophagus, unspecified location (HCC) Pre-op exam Preoperative examination, unspecified Malignant neoplasm of lower third of esophagus (HCC) Malignant neoplasm of lower third of esophagus Essential hypertension, benign Mixed hyperlipidemia Coronary 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 pectoris Gastroesophageal reflux disease, unspecified whether esophagitis present Aortic valve stenosis, etiology of cardiac valve disease unspecified Essential hypertension, benign S/P CABG x 4 Postsurgical aortocoronary bypass status Mixed hyperlipidemia Asthma Unspecified asthma GERD (gastroesophageal reflux disease) Esophageal reflux 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 Pre-transplant evaluation for kidney transplant- Primary Other specified pre-operative examination [facility] Diagnosis Malignant neoplasm of esophagus, unspecified location (HCC) Pre-op exam Preoperative examination, unspecified 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 Essential hypertension, benign Mixed hyperlipidemia Coronary 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 pectoris Gastroesophageal reflux disease, unspecified whether esophagitis present Aortic valve stenosis, etiology of cardiac valve disease unspecified Essential hypertension, benign S/P CABG x 4 Postsurgical aortocoronary bypass status Mixed hyperlipidemia Asthma Unspecified asthma GERD (gastroesophageal reflux disease) Esophageal reflux 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 Pre-transplant evaluation for kidney transplant- Primary Other specified pre-operative examination Renal failure, unspecified chronicity Preoperative examination Preoperative examination, unspecified Special screening for malignant neoplasm of prostate Encounter for screening for human immunodeficiency virus (HIV) Special screening examination for other specified viral diseases Other complications of anesthesia, initial encounter [facility] this [facility] Diagnosis Malignant neoplasm of esophagus, unspecified location (HCC) Pre-op exam Preoperative examination, unspecified 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 Essential hypertension, benign Mixed hyperlipidemia Coronary 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 pectoris Gastroesophageal reflux disease, unspecified whether esophagitis present Aortic valve stenosis, etiology of cardiac valve disease unspecified Essential hypertension, benign S/P CABG x 4 Postsurgical aortocoronary bypass status Mixed hyperlipidemia Asthma Unspecified asthma GERD (gastroesophageal reflux disease) Esophageal reflux 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 Pre-transplant evaluation for kidney transplant- Primary Other specified pre-operative examination [facility] Diagnosis Malignant neoplasm of esophagus, unspecified location (HCC) Pre-op exam Preoperative examination, unspecified 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 Essential hypertension, benign Mixed hyperlipidemia Coronary 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 pectoris Gastroesophageal reflux disease, unspecified whether esophagitis present Aortic valve stenosis, etiology of cardiac valve disease unspecified Essential hypertension, benign S/P CABG x 4 Postsurgical aortocoronary bypass status Mixed hyperlipidemia Asthma Unspecified asthma GERD (gastroesophageal reflux disease) Esophageal reflux 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 Pre-transplant evaluation for kidney transplant- Primary Other specified pre-operative examination [facility] Diagnosis Malignant neoplasm of esophagus, unspecified location (HCC) Pre-op exam Preoperative examination, unspecified 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 Essential hypertension, benign Mixed hyperlipidemia Coronary 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 pectoris Gastroesophageal reflux disease, unspecified whether esophagitis present Aortic valve stenosis, etiology of cardiac valve disease unspecified Essential hypertension, benign S/P CABG x 4 Postsurgical aortocoronary bypass status Mixed hyperlipidemia Asthma Unspecified asthma GERD (gastroesophageal reflux disease) Esophageal reflux 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 Pre-transplant evaluation [...] tract symptoms present [facility] Diagnosis Malignant neoplasm of esophagus, unspecified location (HCC) Pre-op exam Preoperative examination, unspecified 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 Essential hypertension, benign Mixed hyperlipidemia Coronary 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 pectoris Gastroesophageal reflux disease, unspecified whether esophagitis present Aortic valve stenosis, etiology of cardiac valve disease unspecified Essential hypertension, benign S/P CABG x 4 Postsurgical aortocoronary bypass status Mixed hyperlipidemia Asthma Unspecified asthma GERD (gastroesophageal reflux disease) Esophageal reflux 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 Gynecomastia- Primary [...] neoplasm of ovary documented [facility] this [facility] Diagnosis Malignant neoplasm of esophagus, unspecified location (HCC) Pre-op exam Preoperative examination, unspecified 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 Essential hypertension, benign Mixed hyperlipidemia Coronary 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 pectoris Gastroesophageal reflux disease, unspecified whether esophagitis present Aortic valve stenosis, etiology of cardiac valve disease unspecified Essential hypertension, benign S/P CABG x 4 Postsurgical aortocoronary bypass status Mixed hyperlipidemia Asthma (HCC) Unspecified asthma GERD (gastroesophageal reflux disease) Esophageal reflux 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 Dog scratch- Primary Other and unspecified superficial injury of other, multiple, and unspecified sites, without mention of infection Visit for wound check Encounter for other specified aftercare [facility] this [facility] Diagnosis Malignant neoplasm of esophagus, unspecified location (HCC) Pre-op exam Preoperative examination, unspecified 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 Essential hypertension, benign Mixed hyperlipidemia Coronary 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 pectoris Gastroesophageal reflux disease, unspecified whether esophagitis present Aortic valve stenosis, etiology of cardiac valve disease unspecified Essential hypertension, benign S/P CABG x 4 Postsurgical aortocoronary bypass status Mixed hyperlipidemia Asthma (HCC) Unspecified asthma GERD (gastroesophageal reflux disease) Esophageal reflux 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 Acute bilateral low back pain without sciatica- Primary Acute bilateral low back pain without sciatica documented [facility] Diagnosis Malignant neoplasm of esophagus, unspecified location (HCC) Pre-op exam Preoperative examination, unspecified Malignant neoplasm of lower third of esophagus (HCC) Malignant neoplasm of lower third of esophagus Essential hypertension, benign Mixed hyperlipidemia Coronary 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 pectoris Gastroesophageal reflux disease, unspecified whether esophagitis present Aortic valve stenosis, etiology of cardiac valve disease unspecified Essential hypertension, benign S/P CABG x 4 Postsurgical aortocoronary bypass status Mixed hyperlipidemia Asthma (HCC) Unspecified asthma GERD (gastroesophageal reflux disease) Esophageal reflux 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 Acute bilateral low back pain without sciatica documented in this [facility] Diagnosis Malignant neoplasm of esophagus, unspecified location (HCC) Pre-op exam Preoperative examination, unspecified Malignant neoplasm of lower third of esophagus (HCC) Malignant neoplasm of lower third of esophagus Essential hypertension, benign Mixed hyperlipidemia Coronary 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 pectoris Gastroesophageal reflux disease, unspecified whether esophagitis present Aortic valve stenosis, etiology of cardiac valve disease unspecified Essential hypertension, benign S/P CABG x 4 Postsurgical aortocoronary bypass status Mixed hyperlipidemia Asthma (HCC) Unspecified asthma GERD (gastroesophageal reflux disease) Esophageal reflux 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 Hyperprolactinemia (HCC)- Primary Other and unspecified anterior pituitary hyperfunction Abnormal FSH level Unspecified endocrine disorder High serum luteinizing hormone (LH) Hyperprolactinemia (HCC) Other and unspecified anterior pituitary hyperfunction Abnormal FSH level Unspecified endocrine disorder High serum luteinizing hormone (LH) documented [facility] Diagnosis Malignant neoplasm of esophagus, unspecified location (HCC) Pre-op exam Preoperative examination, unspecified Malignant neoplasm of lower third of esophagus (HCC) Malignant neoplasm of lower third of esophagus Essential hypertension, benign Mixed hyperlipidemia Coronary 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 pectoris Gastroesophageal reflux disease, unspecified whether esophagitis present Aortic valve stenosis, etiology of cardiac valve disease unspecified Essential hypertension, benign S/P CABG x 4 Postsurgical aortocoronary bypass status Mixed hyperlipidemia Asthma (HCC) Unspecified asthma GERD (gastroesophageal reflux disease) Esophageal reflux 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 Hyperprolactinemia (HCC) Other and unspecified anterior pituitary hyperfunction Abnormal FSH level Unspecified endocrine disorder High serum luteinizing hormone (LH) documented [facility] this [facility] Diagnosis Malignant neoplasm of esophagus, unspecified location (HCC) Pre-op exam Preoperative examination, unspecified Malignant neoplasm of lower third of esophagus (HCC) Malignant neoplasm of lower third of esophagus Essential hypertension, benign Mixed hyperlipidemia Coronary 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 pectoris Gastroesophageal reflux disease, unspecified whether esophagitis present Aortic valve stenosis, etiology of cardiac valve disease unspecified Essential hypertension, benign S/P CABG x 4 Postsurgical aortocoronary bypass status Mixed hyperlipidemia Asthma (HCC) Unspecified asthma GERD (gastroesophageal reflux disease) Esophageal reflux 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 Skin tear of left forearm without complication, initial encounter- Primary documented [facility] Diagnosis Malignant neoplasm of esophagus, unspecified location (HCC) Pre-op exam Preoperative examination, unspecified Malignant neoplasm of lower third of esophagus (HCC) Malignant neoplasm of lower third of esophagus Essential hypertension, benign Mixed hyperlipidemia Coronary 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 pectoris Gastroesophageal reflux disease, unspecified whether esophagitis present Aortic valve stenosis, etiology of cardiac valve disease unspecified Essential hypertension, benign S/P CABG x 4 Postsurgical aortocoronary bypass status Mixed hyperlipidemia Asthma (HCC) Unspecified asthma GERD (gastroesophageal reflux disease) Esophageal reflux 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 History of cerebral infarction- Primary Transient ischemic attack (TIA), and cerebral infarction without residual deficits Gynecomastia Hypertrophy of breast [facility] Diagnosis Malignant neoplasm of esophagus, unspecified location (HCC) Pre-op exam Preoperative examination, unspecified Malignant neoplasm of lower third of esophagus (HCC) Malignant neoplasm of lower third of esophagus Essential hypertension, benign Mixed hyperlipidemia Coronary 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 pectoris Gastroesophageal reflux disease, unspecified whether esophagitis present Aortic valve stenosis, etiology of cardiac valve disease unspecified Essential hypertension, benign S/P CABG x 4 Postsurgical aortocoronary bypass status Mixed hyperlipidemia Asthma (HCC) Unspecified asthma GERD (gastroesophageal reflux disease) Esophageal reflux 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 Gynecomastia- Primary Hypertrophy of breast Elevated prolactin level Unspecified endocrine disorder Follicle stimulating hormone excess Other and unspecified anterior pituitary hyperfunction Abnormal pituitary luteinizing hormone (LH) [facility] Diagnosis Malignant neoplasm of esophagus, unspecified location (HCC) Pre-op exam Preoperative examination, unspecified Malignant neoplasm of lower third of esophagus (HCC) Malignant neoplasm of lower third of esophagus Essential hypertension, benign Mixed hyperlipidemia Coronary 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 pectoris Gastroesophageal reflux disease, unspecified whether esophagitis present Aortic valve stenosis, etiology of cardiac valve disease unspecified Essential hypertension, benign S/P CABG x 4 Postsurgical aortocoronary bypass status Mixed hyperlipidemia Asthma (HCC) Unspecified asthma GERD (gastroesophageal reflux disease) Esophageal reflux 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 Essential hypertension, benign- Primary Mixed hyperlipidemia Coronary 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 pectoris Esophageal adenocarcinoma (HCC) [...] specified intestinal malabsorption [facility] Diagnosis Malignant neoplasm of esophagus, unspecified location (HCC) Pre-op exam Preoperative examination, unspecified Malignant neoplasm of lower third of esophagus (HCC) Malignant neoplasm of lower third of esophagus Essential hypertension, benign Mixed hyperlipidemia Coronary 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 pectoris Gastroesophageal reflux disease, unspecified whether esophagitis present Aortic valve stenosis, etiology of cardiac valve disease unspecified Essential hypertension, benign S/P CABG x 4 Postsurgical aortocoronary bypass status Mixed hyperlipidemia Asthma (HCC) Unspecified asthma GERD (gastroesophageal reflux disease) Esophageal reflux 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 Lumbar back pain Lumbago [facility] Diagnosis Malignant neoplasm of esophagus, unspecified location (HCC) Pre-op exam Preoperative examination, unspecified Malignant neoplasm of lower third of esophagus (HCC) Malignant neoplasm of lower third of esophagus Essential hypertension, benign Mixed hyperlipidemia Coronary 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 pectoris Gastroesophageal reflux disease, unspecified whether esophagitis present Aortic valve stenosis, etiology of cardiac valve disease unspecified Essential hypertension, benign S/P CABG x 4 Postsurgical aortocoronary bypass status Mixed hyperlipidemia Asthma (HCC) Unspecified asthma GERD (gastroesophageal reflux disease) Esophageal reflux 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 Compression fracture of L5 vertebra with routine healing, subsequent encounter- Primary 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 Essential hypertension, benign Mixed hyperlipidemia Coronary 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 pectoris Gastroesophageal reflux disease, unspecified whether esophagitis present Aortic valve stenosis, etiology of cardiac valve disease unspecified Essential hypertension, benign S/P CABG x 4 Postsurgical aortocoronary bypass status Mixed hyperlipidemia Asthma (HCC) Unspecified asthma GERD (gastroesophageal reflux disease) Esophageal reflux 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 Gynecomastia Hypertrophy of breast Elevated prolactin level Unspecified endocrine disorder Follicle stimulating hormone excess Other and unspecified anterior pituitary hyperfunction documented in this encounter [facility] note* Diagnosis Malignant neoplasm of esophagus, unspecified location (HCC) Pre-op exam Preoperative examination, unspecified Malignant neoplasm of lower third of esophagus (HCC) Malignant neoplasm of lower third of esophagus Essential hypertension, benign Mixed hyperlipidemia Coronary 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 pectoris Gastroesophageal reflux disease, unspecified whether esophagitis present Aortic valve stenosis, etiology of cardiac valve disease unspecified Essential hypertension, benign S/P CABG x 4 Postsurgical aortocoronary bypass status Mixed hyperlipidemia Asthma (HCC) Unspecified asthma GERD (gastroesophageal reflux disease) Esophageal reflux 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 documented [facility] this 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 Essential hypertension, benign Mixed hyperlipidemia Coronary 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 pectoris Gastroesophageal reflux disease, unspecified whether esophagitis present Aortic valve stenosis, etiology of cardiac valve disease unspecified Essential hypertension, benign S/P CABG x 4 Postsurgical aortocoronary bypass status Mixed hyperlipidemia Asthma (HCC) Unspecified asthma GERD (gastroesophageal reflux disease) Esophageal reflux 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)- Primary Malignant neoplasm of lower third of esophagus Compression fx, lumbar spine, closed, initial encounter (HCC) Collapsed vertebra, not elsewhere classified, lumbar region, initial encounter for fracture (HCC) [facility] Diagnosis Malignant neoplasm of esophagus, unspecified location (HCC) Pre-op exam Preoperative examination, unspecified Malignant neoplasm of lower third of esophagus (HCC) Malignant neoplasm of lower third of esophagus Essential hypertension, benign Mixed hyperlipidemia Coronary 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 pectoris Gastroesophageal reflux disease, unspecified whether esophagitis present Aortic valve stenosis, etiology of cardiac valve disease unspecified Essential hypertension, benign S/P CABG x 4 Postsurgical aortocoronary bypass status Mixed hyperlipidemia Asthma (HCC) Unspecified asthma GERD (gastroesophageal reflux disease) Esophageal reflux 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 Chronic sinusitis, unspecified location- Primary Seasonal allergic rhinitis, unspecified trigger documented in this encounter [facility] for referral (narrative)* Outpatient Procedure (Routine) - Authorized Specialty Diagnoses / Procedures Referred By Nahomy santiago Referred To [facility] Diagnoses Malignant neoplasm of lower third of esophagus (HCC) Procedures EGD DIAGNOSTIC ESOPHAGOGASTRODUODENOSC OPY TRANSORAL DIAGNOSTIC Renetta Radford MD [address] [place] [address] [facility] [place] [place] [address] Referral ID Status Reason Start Date Expiration Date Visits Requested Visits Authorized [id number] Authorized Auto-Generat ed Referral 08/04/2021 08/04/2022 1 1 [facility] for referral (narrative)* Outpatient Procedure (Routine) - Authorized Specialty Diagnoses / Procedures Referred By Contac t Referred To [facility] Diagnoses Malignant neoplasm of lower third of esophagus (HCC) Procedures EGD DIAGNOSTIC ESOPHAGOGASTRODUODENOSC OPY TRANSORAL DIAGNOSTIC Queta Gleason APRN.LIFE MANAGEMENT TEACHER [address] [place] [address] [facility] [address] [phone] Referral ID Status Reason Start Date Expiration Date Visits Requested Visits Authorized [id number] Authorized Auto-Generat ed Referral 09/07/2021 09/07/2022 1 1 [facility] for referral (narrative)* Outpatient Procedure (Routine) - Closed Specialty Diagnoses / Procedures Referred By Nahomy santiago Referred To [facility] Diagnoses Malignant neoplasm of lower third of esophagus (HCC) Procedures EGD DIAGNOSTIC ESOPHAGOGASTRODUODENOSC OPY TRANSORAL DIAGNOSTIC Renetta Radford MD [address] [place] [address] [facility] [address] [place] [address] Referral ID Status Reason Start Date Expiration Date V isits Requested Visits Authorized [id number] Closed Auto-Generate d Referral 08/04/2021 08/04/2022 1 1 [facility] for referral (narrative)* Outpatient Procedure (Routine) - Pending Review Specialty Diagnoses / Procedures Referred By Nahomy t Referred To [facility] Diagnoses Malignant neoplasm of lower third of esophagus (HCC) Procedures EGD DIAGNOSTIC ESOPHAGOGASTRODUODENOSC OPY TRANSORAL DIAGNOSTIC Queta Gleason APRN.LIFE MANAGEMENT TEACHER [address] [place] [address] [facility] [address] [place] [address] Referral ID Status Reason Start Date Expiration Date Visits Requested Visits Authorized [id number] Pending Review Auto-Generat ed Referral 11/09/2021 11/09/2022 1 1 [facility] for referral (narrative)* Outpatient Procedure (Routine) - Closed Specialty Diagnoses / Procedures Referred By Contac t Referred To Contact [facility] Diagnoses Malignant neoplasm of lower third of esophagus (HCC) Procedures EGD DIAGNOSTIC ESOPHAGOGASTRODUODENOSC OPY TRANSORAL DIAGNOSTIC Queta Gleason, BOATING SAFETY OFFICER.LIFE MANAGEMENT TEACHER [address] [place] [address] [facility] [place] [address] [place] [address] Referral ID Status Reason Start Date Expiration Date V isits Requested Visits Authorized [id number] Closed Auto-Generate d Referral 09/07/2021 09/07/2022 1 1 [facility] for referral (narrative)* Diagnostic Procedure Only (Urgent) - Closed Specialty Diagnoses / Procedures Referred By Contac t Referred To Contact XR IMAGING Diagnoses Rib injury Procedures XR RIBS/CHEST 3V AP RIB/OBLS/CXR RIGHT RADEX RIBS UNI W/POSTEROANT CH MINIMUM 3 VIEWS Yaw Smith BOATING SAFETY OFFICER.LIFE MANAGEMENT TEACHER [address] [place] [address] Xr Imaging Referral ID Status Reason Start Date Expiration Date V isits Requested Visits Authorized [id number] Closed Auto-Generate d Referral 06/09/2022 07/09/2023 1 1 [facility] for referral (narrative)* Outpatient Procedure (Routine) - Closed Specialty Diagnoses / Procedures Referred By Contac t Referred To Contact [facility] Diagnoses Malignant neoplasm of lower third of esophagus (HCC) Procedures EGD DIAGNOSTIC ESOPHAGOGASTRODUODENOSC OPY TRANSORAL DIAGNOSTIC Queta Hunt BOATING SAFETY OFFICER.LIFE MANAGEMENT TEACHER [address] [place] [address] [facility] [place] [address] [place] [address] Referral ID Status Reason Start Date Expiration Date V isits Requested Visits Authorized [id number] Closed Auto-Generate d Referral 11/09/2021 11/09/2022 1 1 [facility] for referral (narrative)* Diagnostic Procedure Only (Routine) - Authorized Specialty Diagnoses / Procedures Referred By Contac t Referred To Contact [facility] Diagnoses Malignant neoplasm of lower third of esophagus (HCC) Procedures NM PET/CT SKULL-THIGH SUBSEQUENT PET IMAGING CT ATTENUATION SKULL BASE MID-THIGH Richard Jenkins DO [address] [place] [address] [facility] [address] [phone] Referral ID Status Reason Start Date Expiration Date Visits Requested Visits Authorized [id number] Authorized Auto-Generat ed Referral 3 04/27/2024 1 1 [facility] for referral (narrative)* Outpatient Procedure (Routine) - Pending Review Specialty Diagnoses / Procedures Referred By Contac t Referred To Contact [facility] Diagnoses Malignant neoplasm of esophagus, unspecified location (HCC) Procedures EGD - THERAPEUTIC, EUS, OR TUBE INTERVENTIONS EDG US EXAM SURGICAL ALTER STOM DUODENUM/JEJUNUM Amos Rangel MD [address] [place] [address] [facility] [place] [address] [place] [address] Referral ID Status Reason Start Date Expiration Date Visits Requested Visits Authorized [id number] Pending Review Auto-Generat ed Referral 05/28/2023 05/28/2024 1 1 [facility] for referral (narrative)* Outpatient Procedure (Routine) - Closed Specialty Diagnoses / Procedures Referred By Contac t Referred To Contact [facility] Diagnoses Malignant neoplasm of esophagus, unspecified location (HCC) Procedures EGD - THERAPEUTIC, EUS, OR TUBE INTERVENTIONS EDG US EXAM SURGICAL ALTER STOM DUODENUM/JEJUNUM Amos Rangel MD [address] [place] [address] [facility] [place] [address] [place] [address] Referral ID Status Reason Start Date Expiration Date V isits Requested Visits Authorized [id number] Closed Auto-Generate d Referral 05/28/2023 05/28/2024 1 1 [facility] for referral (narrative)* Diagnostic Procedure Only (Routine) - Authorized Specialty Diagnoses / Procedures Referred By Contac t Referred To Contact [facility] Diagnoses RUQ pain Nausea Procedures NM HEPATOBILIARY W EF AND/OR RX HEPATOBIL SYST IMAG INC GB W/PHARMA INTERVENJ Usha Mcgovern PA-C [address] [place] [address] [facility] [address] [phone] Referral ID Status Reason Start Date Expiration Date Visits Requested Visits Authorized [id number] Authorized Auto-Generat ed Referral 06/19/2023 07/18/2024 1 1 * Diagnostic Procedure Only (Routine) - Authorized Specialty Diagnoses / Procedures Referred By Contac t Referred To Contact US IMAGING Diagnoses RUQ pain Nausea Procedures US ABD RIGHT UPPER QUADRANT US ABDOMINAL REAL TIME W/IMAGE LIMITED Usha Mcgovern PA-C [address] [place] [address] [place] [address] Referral ID Status Reason Start Date Expiration Date Visits Requested Visits Authorized [id number] Authorized Auto-Generat ed Referral 06/19/2023 07/18/2024 1 1 [facility] for referral (narrative)* Diagnostic Procedure Only (Routine) - Closed Specialty Diagnoses / Procedures Referred By Contac t Referred To Contact [facility] Diagnoses RUQ pain Nausea Procedures NM HEPATOBILIARY W EF AND/OR RX HEPATOBIL SYST IMAG INC GB W/PHARMA INTERVENJ Usha Mcgovern PA-C [address] [place] [address] [facility] [address] [phone] Referral ID Status Reason Start Date Expiration Date V isits Requested Visits Authorized [id number] Closed Auto-Generate d Referral 06/19/2023 07/18/2024 1 1 [facility] for referral (narrative)* Outpatient Procedure (Routine) - Authorized Specialty Diagnoses / Procedures Referred By Nahomy santiago Referred To Contact [facility] Diagnoses Pleural effusion TRIPATHI (dyspnea on exertion) Procedures ECHO ECHO TTHRC R-T 2D W/WOM-MODE COMPL SPEC&COLR D Usha Mcgovern PA-C [address] [place] [address] [facility] [place] [address] [place] [address] Referral ID Status Reason Start Date Expiration Date Visits Requested Visits Authorized [id number] Authorized Auto-Generat ed Referral 09/13/2023 09/12/2024 1 1 [facility] for referral (narrative)* Diagnostic Procedure Only (Urgent) - Closed Specialty Diagnoses / Procedures Referred By Nahomy santiago Referred To Contact XR IMAGING Diagnoses Rib injury Procedures XR RIBS/CHEST 3V AP RIB/OBLS/CXR RIGHT RADEX RIBS UNI W/POSTEROANT CH MINIMUM 3 VIEWS Yaw Smith, LIFE MANAGEMENT TEACHER [address] [place] [address] [place] [id number] Referral ID Status Reason Start Date Expiration Date V isits Requested Visits Authorized [id number] Closed Auto-Generate d Referral 06/09/2022 07/09/2023 1 1 [facility] for referral (narrative)* Diagnostic Procedure Only (Routine) - Authorized Specialty Diagnoses / Procedures Referred By Contac t Referred To Contact XR IMAGING Diagnoses Malignant neoplasm of lower third of esophagus (HCC) Early satiety Nausea Procedures XR GI SMALL BOWEL FOLLOW-THRU RADIOLOGIC SMALL INTESTINE FOLLOW-THROUGH STUDY Richard Jenkins, DO [address] [place] [address] [place] [address] Referral ID Status Reason Start Date Expiration Date Visits Requested Visits Authorized [id number] Authorized Auto-Generat ed Referral 01/15/2024 02/13/2025 1 1 * Diagnostic Procedure Only (Routine) - Authorized Specialty Diagnoses / Procedures Referred By Contac t Referred To Contact XR IMAGING Diagnoses Malignant neoplasm of lower third of esophagus (HCC) Early satiety Nausea Procedures XR UPPER GI SINGLE CONTRAST RADIOLOGIC EXAM UPR GI TRC SINGLE CONTRAST STUDY Richard Jenkins, DO [address] [place] [address] [place] [address] Referral ID Status Reason Start Date Expiration Date Visits Requested Visits Authorized [id number] Authorized Auto-Generat ed Referral 01/15/2024 02/13/2025 1 1 * MRI/CT (Routine) - Authorized Specialty Diagnoses / Procedures Referred By Contac t Referred To Contact CT IMAGING Diagnoses Malignant neoplasm of lower third of esophagus (HCC) Procedures CT ABD/PEL WO IVCON CT ABD & PELVIS W/O CONTRAST Richard Jenkins, DO [address] [place] [address] [place] [address] Referral ID Status Reason Start Date Expiration Date Visits Requested Visits Authorized [id number] Authorized Auto-Generat ed Referral 01/15/2024 02/13/2025 1 1 * MRI/CT (Routine) - Authorized Specialty Diagnoses / Procedures Referred By Contac t Referred To Contact CT IMAGING Diagnoses Malignant neoplasm of lower third of esophagus (HCC) Procedures CT CHEST WO IVCON DIAGNOSTIC COMPUTED TOMOGRAPHY THORAX W/O CNTRST Richard Jenkins, DO [address] [facility] [place] [address] [place] [address] Referral ID Status Reason Start Date Expiration Date Visits Requested Visits Authorized [id number] Authorized Auto-Generat ed Referral 01/15/2024 02/13/2025 1 1 [facility] for referral (narrative)* Diagnostic Procedure Only (Routine) - Closed Specialty Diagnoses / Procedures Referred By Contac t Referred To Contact XR IMAGING Diagnoses Malignant neoplasm of lower third of esophagus (HCC) Early satiety Nausea Procedures XR UPPER GI SINGLE CONTRAST RADIOLOGIC EXAM UPR GI TRC SINGLE CONTRAST STUDY Richard Jenkins DO [address] [place] [address] [place] [address] Referral ID Status Reason Start Date Expiration Date V isits Requested Visits Authorized [id number] Closed Auto-Generate d Referral 01/15/2024 02/13/2025 1 1 [facility] for referral (narrative)* Diagnostic Procedure Only (Routine) - Closed Specialty Diagnoses / Procedures Referred By Contac t Referred To Contact XR IMAGING Diagnoses Malignant neoplasm of lower third of esophagus (HCC) Early satiety Nausea Procedures XR GI SMALL BOWEL FOLLOW-THRU RADIOLOGIC SMALL INTESTINE FOLLOW-THROUGH STUDY Richard Jenkins, DO [address] [place] [address] [place] [address] Referral ID Status Reason Start Date Expiration Date V isits Requested Visits Authorized [id number] Closed Auto-Generate d Referral 01/15/2024 02/13/2025 1 1 T [facility] for referral (narrative)No reason for referral information [facility] Work Phone: Reason for visit Narrative* Outpatient Procedure (Routine) - Closed Specialty Diagnoses / Procedures Referred By Contac t Referred To [facility] Diagnoses Malignant neoplasm of lower third of esophagus (HCC) Procedures EGD DIAGNOSTIC ESOPHAGOGASTRODUODENOSC OPY TRANSORAL DIAGNOSTIC Renetta Radford MD [address] [place] [address] [facility] [address] [place] [address] Referral ID Status Reason Start Date Expiration Date V isits Requested Visits Authorized [id number] Closed Auto-Generate d Referral 08/04/2021 08/04/2022 1 1 [facility] for visit Narrative* Outpatient Procedure (Routine) - Closed Specialty Diagnoses / Procedures Referred By Contac t Referred To [facility] Diagnoses Malignant neoplasm of lower third of esophagus (HCC) Procedures EGD DIAGNOSTIC ESOPHAGOGASTRODUODENOSC OPY TRANSORAL DIAGNOSTIC Queta Gleason, BOATING SAFETY OFFICER.LIFE MANAGEMENT TEACHER [address] [place] [address] [facility] [address] [place] [address] Referral ID Status Reason Start Date Expiration Date V isits Requested Visits Authorized [id number] Closed Auto-Generate d Referral 09/07/2021 09/07/2022 1 1 [facility] for visit Narrative* Outpatient Procedure (Routine) - Closed Specialty Diagnoses / Procedures Referred By Contac t Referred To [facility] Diagnoses Malignant neoplasm of lower third of esophagus (HCC) Procedures EGD DIAGNOSTIC ESOPHAGOGASTRODUODENOSC OPY TRANSORAL DIAGNOSTIC Queta Hunt , BOATING SAFETY OFFICER.LIFE MANAGEMENT TEACHER [address] [place] [address] [facility] [address] [place] [address] Referral ID Status Reason Start Date Expiration Date V isits Requested Visits Authorized [id number] Closed Auto-Generate d Referral 11/09/2021 11/09/2022 1 1 [facility] for visit Narrative* Outpatient Procedure (Routine) - Closed Specialty Diagnoses / Procedures Referred By Contac t Referred To [facility] Diagnoses Malignant neoplasm of esophagus, unspecified location (HCC) Procedures EGD - THERAPEUTIC, EUS, OR TUBE INTERVENTIONS EDG US EXAM SURGICAL ALTER STOM DUODENUM/JEJUNUM Amos Rangel MD [address] [facility] [place] [address] [facility] [place] [address] [place] [address] Referral ID Status Reason Start Date Expiration Date V isits Requested Visits Authorized [id number] Closed Auto-Generate d Referral 05/28/2023 05/28/2024 1 1 [facility] for visit Narrative* Diagnostic Procedure Only (Urgent) - Closed Specialty Diagnoses / Procedures Referred By Contac t Referred To Contact XR IMAGING Diagnoses Rib injury Procedures XR RIBS/CHEST 3V AP RIB/OBLS/CXR RIGHT RADEX RIBS UNI W/POSTEROANT CH MINIMUM 3 VIEWS Yaw Smith APRN.LIFE MANAGEMENT TEACHER [address] [place] [address] X[id number] Referral ID Status Reason Start Date Expiration Date V isits Requested Visits Authorized [id number] Closed Auto-Generate d Referral 06/09/2022 07/09/2023 1 1 [facility] for visit Narrative* Diagnostic Procedure Only (Routine) - Closed Specialty Diagnoses / Procedures Referred By Contac t Referred To Contact XR IMAGING Diagnoses Malignant neoplasm of lower third of esophagus (HCC) Early satiety Nausea Procedures XR UPPER GI SINGLE CONTRAST RADIOLOGIC EXAM UPR GI TRC SINGLE CONTRAST STUDY Richard Jenkins, DO [address] [place] [address] [place] [address] Referral ID Status Reason Start Date Expiration Date V isits Requested Visits Authorized [id number] Closed Auto-Generate d Referral 01/15/2024 02/13/2025 1 1 [facility] for visit Narrative* Diagnostic Procedure Only (Routine) - Closed Specialty Diagnoses / Procedures Referred By Contac t Referred To Contact XR IMAGING Diagnoses Malignant neoplasm of lower third of esophagus (HCC) Early satiety Nausea Procedures XR GI SMALL BOWEL FOLLOW-THRU RADIOLOGIC SMALL INTESTINE FOLLOW-THROUGH STUDY Richard Jenkins, DO [address] [place] [address] [place] [address] Referral ID Status Reason Start Date Expiration Date V isits Requested Visits Authorized [id number] Closed Auto-Generate d Referral 01/15/2024 02/13/2025 1 1 [facility] for visit Narrative* Diagnostic Procedure Only (Urgent) - Closed Specialty Diagnoses / Procedures Referred By Contac t Referred To Contact XR IMAGING Diagnoses Acute bilateral low back pain without sciatica Procedures XR LUMBAR GENERAL 3V AP/LAT/L5-S1 RADEX SPINE LUMBOSACRAL 2/3 VIEWS Steve Youssef PA-C [address] [facility] [address] [place] [address] Phone: tel: fax: [place] [address] Referral ID Status Reason Start Date Expiration Date V isits Requested Visits Authorized [id number] Closed Auto-Generate d Referral 08/20/2024 09/19/2025 1 1 [facility] for visit Narrative* MRI/CT (Routine) - Closed Specialty Diagnoses / Procedures Referred By Contac t Referred To Contact MR IMAGING Diagnoses Hyperprolactinemia (HCC) Abnormal FSH level High serum luteinizing hormone (LH) Procedures MRI BRAIN WO IVCON MRI BRAIN BRAIN STEM W/O CONTRAST MATERIAL Stacia Adame MD [address] [place] [address] Phone: tel: fax: [place] [address] Referral ID Status Reason Start Date Expiration Date V isits Requested Visits Authorized [id number] Closed Auto-Generate d Referral 07/11/2024 08/10/2025 1 1 [facility] for visit Narrative* Diagnostic Procedure Only (Routine) - Closed Specialty Diagnoses / Procedures Referred By Contac t Referred To Contact XR IMAGING Diagnoses Lumbar back pain Procedures XR LUMBAR PARS DEFECT 4V AP/LAT/BOTH OBL RADEX SPINE LUMBOSACRAL MINIMUM 4 VIEWS Usha Mcgovern PA-C [address] [place] [address] Phone: tel: fax: [place] [address] Referral ID Status Reason Start Date Expiration Date V isits Requested Visits Authorized [id number] Closed Auto-Generate d Referral 10/07/2024 11/06/2025 1 1 [facility] MRI/CT (Routine) - Closed Specialty Diagnoses / Procedures Referred By Nahomy t Referred To Contact CT IMAGING Diagnoses Malignant neoplasm of lower third of esophagus (HCC) Procedures CT ABD/PEL WO IVCON CT ABD & PELVIS W/O CONTRAST Richard Jenkins, DO [address] [place] [address] Phone: tel: fax: [place] [address] Referral ID Status Reason Start Date Expiration Date V isits Requested Visits Authorized [id number] Closed Auto-Generate d Referral 05/02/2024 06/01/2025 1 1 [facility] Summary Purpose Family History No Family History Records Found Relationship Condition Age at Onset Recorded Date/T sary father Cardiac disease Unknown Myocardial infarction Unknown Hypertension Unknown brother Hypertension Unknown sister Cardiac disease Unknown Advance Directives No Advanced Directives Records FoundDocuments on File Type Date Recorded Patient Arrt Technologist Expl anation Advance Directives and Living Will Power of Flight Controls Engineer Latest Code Status on File Code Status Date Activated Date Inactivated Comments Full Code 07/25/2013 5:08 PM 07/26/2013 1:38 PM Documents on File Type Date Recorded Patient Arrt Technologist Expl anation ACP-Advance Directive ACP-Power of Flight Controls Engineer Latest Code Status on File Code Status Date Activated Date Inactivated Comments Full Code 03/03/2019 8:59 AM 03/04/2019 3:48 PM Full Code 03/03/2019 5:32 AM 03/03/2019 8:33 AM Full Code 07/25/2013 5:08 PM 07/26/2013 1:38 PM Documents on File Type Date Recorded Patient Arrt Technologist Expl anation Advance Directives and Living Will Power of Flight Controls Engineer Latest Code Status on File Code Status [...] Documents on File Type Date Recorded Patient Arrt Technologist Expl anation Advance Directive(s) 11/16/2020 1:24 PM [...] Documents on File Type Date Recorded Patient Arrt Technologist Expl anation Advance Directive(s) 11/16/2020 1:24 PM [...] Date/ Time Advance Directives No June 27 015 6:19pm Living Will No June 23, 2022 4:34pm Power of Flight Controls Engineer No June 23 4:34pm Advance Directive Response Recorded Date/ Time Advance Directives No June 27 015 6:19pm Advance Directive Response Recorded Date/ Time Living Will Yes June 02 11:59am Do you have a Healthcare Pow er of Flight Controls Engineer? Yes June 02, 2024 11:59am Name of Medical Power of Flight Controls Engineer LACHO FROST June 02, 2024 11:59am Advance Directives No June 27 6:19pm Advance Directive Response Recorded Date/ Time Living Will Yes June 02 11:59am Do you have a Healthcare Pow er of Flight Controls Engineer? Yes June 02, 2024 11:59am Name of Medical Power of Flight Controls Engineer LACHO FROST June 02, 2024 11:59am Do you have a Healthcare Pow er of Flight Controls Engineer? Yes September 17, 2024 10:04pm Advance Directives No June 27 6:19pm Advance Directive Response Recorded Date/ Time Living Will Yes June 02 11:59am Do you have a Healthcare Power of Flight Controls Engineer? Yes June 02, 2024 11:59am Name of Medical Power of Flight Controls Engineer LACHO BAIRD June 02, 2024 11:59am Do you have a Healthcare Power of Flight Controls Engineer? Yes September 17, 2024 10:04pm Advance Directives on File Yes October 15, 2024 9:21am Living Will Yes October 15, 2024 9 :21am Do you have a Healthcare Power of Flight Controls Engineer? Yes October 15, 2024 9:21am Name of Medical Power of Flight Controls Engineer Camryn Baird- Daughter October 15, 2024 9:21am Advance Directives Yes October 15 9:21am Advance Directive Response Recorded Date/ Time Do you have a Healthcare Pow er of Flight Controls Engineer? Yes September 17, 2024 10:04pm Advance Directives on File Yes October 15, 2024 9:21am Living Will Yes October 15, 2024 9 :21am Do you have a Healthcare Pow er of Flight Controls Engineer? Yes October 15, 2024 9:21am Name of Medical Power of Flight Controls Engineer Camryn Baird- Daughter October 15, 2024 9:21am Advance Directives Yes October 15 9:21am Hospital Course Note EMERGENCY DEPARTMENT DISCHAR GE SUMMARY PATIENT NAME:JACOB LANDA [id number] AGE: 63 Years SEX: Male PHONE:[phone] DOS: 12/30/2018 10:54:00 : 1955 ATTENDING PHYSICIAN:Yessi [...] summary document to your follow up appointments. [facility] 01/01/19 13:40 [address] [place]. [address] PATIENT INFORMATION Name: JACOB LANDA Address: [address] [place] [id number] Age: 63 Years Phone: [phone] : 1955 12:00 MRN: [id number] Sex: Male Race: White Ethnicity: Not Hispan/Lat Ad[facility]: [email or web address] Medical Service: Internal Medicine Nurse Unit/Bed: (SD) [facility] [id number] Admit Date: 12/31/2018 10:30 PCP: Physician, PCP Unknown PHYSICIANS INVOLVED WITH CARE Attending Physicians: AUDREY, A - Internal Medicine Admitting Physician: Sandra Carlson MD - Internal Medicine Primary Care Physician:Physician, PCP Unknown,Family Practice,,, - Consults: Sandra Kelsey MD - Shell Disease Jurgen MANNING , Bismark Dickson - Shell Disease Problems Active (more content not included)... Note DICTATED BY: SANDRA CARLSON MD DATE OF ADMISSION: 12/30/2018 ADMITTING ATTENDING: [facility]. PRIMARY CARE PHYSICIAN: Unknown. REASON FOR ADMISSION: Right-sided chest pain with diaphoresis and nausea. HISTORY OF PRESENT ILLNESS: The patient is a pleasant 63-year-old male who gets most of his healthcare done in the [facility] as he lives in [place], [place]. His patient accounts specialist in [place] has been caring for him for some time. The patient has previously underwent coronary artery bypass grafting and subsequently also underwent 3 stents to his LAD for a non-ST elevation myocardial infarction that he had similar symptoms when he presented with that. He is also apparently being evaluated for aortic stenosis and possible TAVR for 2019. His patient accounts specialist name is Dr. Noland. Today, he started having a significant amount of chest pressure and chest pain on the right side of his chest that he describes as a cramping. It started about 9:30 this morning when he had come to a trailer y (more content not included)... Note Patient: JACOB LANDA MRN: [id number] Age: 63 years Sex: Male : 1955 [...] MD DATE OF ADMISSION: 12/30/2018 ADMITTING ATTENDING: [facility]. PRIMARY CARE PHYSICIAN: Unknown. REASON FOR ADMISSION: Right-sided chest pain with diaphoresis and nausea. HISTORY OF PRESENT ILLNESS: The patient is a pleasant 63-year-old male who gets most of his healthcare done in the [facility] as he lives in [place], [place]. His patient accounts specialist in [place] has been caring for him for some time. The patient has previously underwent coronary artery bypass grafting and subsequently also underwent 3 stents to his LAD for a non-ST elevation myocardial infarction that he had similar symptoms when he presented with that. He is also apparently being evaluated for aortic stenosis and possible TAVR for 2019. His patient accounts specialist name is Dr. Noland. Today, he started having a significant amount of chest pressure and chest pain on the right side of his chest that he describes as a cramping. It started about 9:30 this morning when he had come to a trailer y (more content not included)... Note Patient: JACOB LANDA MRN: [id number] Age: 63 years Sex: Male : 1955 [...] Pelvis W Contrast Tyshawn Magallanes MD [address] [facility] [address] [place] [address] Status Reason Specialty Diagnoses / Procedures Referre d By Contact Referred To Contact Closed Cardiology Diagnoses S/P TAVR (transcatheter aortic valve replacement) Aortic valve stenosis, etiology of cardiac valve disease unspecified Procedures Echo 2D Doppler Color 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 APRN - LIFE MANAGEMENT TEACHER [address] [place] [address] Status Reason Specialty Diagnoses / Procedures Referre d By Contact Referred To Contact Closed Cardiology Diagnoses Severe aortic stenosis Coronary 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 pectoris Essential hypertension Obesity (BMI 30.0-34.9) Procedures ECHO Complete 2D W Doppler W Color 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 APRN - LIFE MANAGEMENT TEACHER [address] [facility] [address] [place] [address] Specialty Diagnoses / Procedures Referred By Nahomy santiago Referred To Contact CT IMAGING Diagnoses Malignant neoplasm of lower third of esophagus (HCC) Pleural effusion Procedures CT CHEST W IVCON DIAGNOSTIC COMPUTED TOMOGRAPHY THORAX W/CONTRAST Mari Akhtar APRN.LIFE MANAGEMENT TEACHER [address] [place] [address] Ct Imaging Referral ID Status Reason Start Date Expiration Date V isits Requested Visits Authorized [id number] Closed Auto-Generate d Referral 08/24/2021 09/23/2022 1 1 Specialty Diagnoses / Procedures Referred By Nahomy t Referred To Contact CT IMAGING Diagnoses Malignant neoplasm of lower third of esophagus (HCC) Procedures CT ABD/PEL W IVCON CT ABD & PELVIS W/CONTRAST Mari Akhtar, BRANDON [address] [place] [address] Ct Imaging Referral ID Status Reason Start Date Expiration Date V isits Requested Visits Authorized [id number] Closed Auto-Generate d Referral 08/24/2021 09/23/2022 1 1 Specialty Diagnoses / Procedures Referred By Contac t Referred To Contact CT IMAGING Diagnoses Malignant neoplasm of lower third of esophagus (HCC) Procedures CT CHEST W IVCON DIAGNOSTIC COMPUTED TOMOGRAPHY THORAX W/CONTRAST Masci, Richard A, DO [address] [place] [address] Ct Imaging Referral ID Status Reason Start Date Expiration Date Visits Requested Visits Authorized [id number] Authorized Auto-Generat ed Referral 11/02/2021 12/02/2022 1 1 Specialty Diagnoses / Procedures Referred By Contac t Referred To Contact CT IMAGING Diagnoses Malignant neoplasm of lower third of esophagus (HCC) Procedures CT ABD/PEL W IVCON CT ABD & PELVIS W/CONTRAST Masci, Richard A, DO [address] [place] [address] Ct Imaging Referral ID Status Reason Start Date Expiration Date Visits Requested Visits Authorized [id number] Authorized Auto-Generat ed Referral 11/02/2021 12/02/2022 1 1 Referral ID Status Reason Start Date Expiration Date Visits Requested Visits Authorized [id number] Authorized Auto-Generat ed Referral 08/22/2022 09/21/2023 1 1 Referral ID Status Reason Start Date Expiration Date Visits Requested Visits Authorized [id number] Authorized Auto-Generat ed Referral 08/22/2022 09/21/2023 1 1 Specialty Diagnoses / Procedures Referred By Contac t Referred To Contact CT IMAGING Diagnoses Malignant 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) Procedures CT CHEST W IVCON DIAGNOSTIC COMPUTED TOMOGRAPHY THORAX W/CONTRAST Masci, Richard A, DO [address] [place] [address] [place] [address] Referral ID Status Reason Start Date Expiration Date V isits Requested Visits Authorized [id number] Closed Auto-Generate d Referral 11/02/2021 12/02/2022 1 1 Specialty Diagnoses / Procedures Referred By Contac t Referred To Contact CT IMAGING Diagnoses Malignant neoplasm of lower third of esophagus (HCC) Procedures CT ABD/PEL W IVCON CT ABD & PELVIS W/CONTRAST Richard Jenkins, DO [address] [facility] [place] [address] [place] [address] Referral ID Status Reason Start Date Expiration Date V isits Requested Visits Authorized [id number] Closed Auto-Generate d Referral 11/02/2021 12/02/2022 1 1 Specialty Diagnoses / Procedures Referred By Contac t Referred To Contact CT IMAGING Diagnoses Malignant neoplasm of lower third of esophagus (HCC) Procedures CT CHEST W IVCON DIAGNOSTIC COMPUTED TOMOGRAPHY THORAX W/CONTRAST Mari Akhtar, BOATING SAFETY OFFICER.LIFE MANAGEMENT TEACHER [address] [place] [address] [place] [address] Referral ID Status Reason Start Date Expiration Date V isits Requested Visits Authorized [id number] Closed Auto-Generate d Referral 02/22/2022 03/24/2023 1 1 Specialty Diagnoses / Procedures Referred By Contac t Referred To Contact CT IMAGING Diagnoses Malignant neoplasm of lower third of esophagus (HCC) Procedures CT ABD/PEL W IVCON CT ABD & PELVIS W/CONTRAST Mari Akhtar, BOATING SAFETY OFFICER.LIFE MANAGEMENT TEACHER [address] [place] [address] [place] [address] Referral ID Status Reason Start Date Expiration Date V isits Requested Visits Authorized [id number] Closed Auto-Generate d Referral 02/22/2022 03/24/2023 1 1 Specialty Diagnoses / Procedures Referred By Contac t Referred To Contact MR IMAGING Diagnoses Esophageal adenocarcinoma (HCC) Compression fracture of thoracic vertebra, unspecified thoracic vertebral level, initial encounter (HCC) Procedures MRI THORACIC SPINE WO/W IVCON MRI SPINAL CANAL THORACIC W/O & W/CONTR MATRL Richard Jenkins, DO [address] [facility] [place] [address] [place] [address] Referral ID Status Reason Start Date Expiration Date Visits Requested Visits Authorized [id number] Authorized Auto-Generat ed Referral 03/22/2024 1 1 Specialty Diagnoses / Procedures Referred By Contac t Referred To Contact Spine [place] Diagnoses Closed wedge compression fracture of T10 vertebra with routine healing, subsequent encounter Procedures CONSULT TO [facility] OFFICE/OUTPATIENT [facility] HIGH MDM 60 MINUTES Richard Jenkins, DO [address] [place] [address] Referral ID Status Reason Start Date Expiration Date Visits Requested Visits Authorized [id number] Authorized PCP Requested Referral 06/18/2023 06/17/2024 1 [...] CONSULT TO PHYSICAL THERAPY PHYSICAL THERAPY EVALUATION [facility] 45 MINS Jesus Manuel Resendiz PA-C [address] [place] [address] [facility] [address] [address] Referral ID Status Reason Start Date Expiration Date Visits Requested Visits Authorized [id number] Authorized PCP Requested Referral Auto-Generate d Referral 07/12/2023 07/11/2024 99 99 Referral ID Status Reason Start Date Expiration Date Visits Requested Visits Authorized [id number] Authorized Auto-Generat ed Referral 07/19/2023 08/17/2024 1 1 Referral ID Status Reason Start Date Expiration Date Visits Requested Visits Authorized [id number] Authorized Auto-Generat ed Referral 07/19/2023 08/17/2024 1 1 Specialty Diagnoses / Procedures Referred By Contac t Referred To Contact MR IMAGING Diagnoses Pathological fracture of thoracic vertebra, initial encounter Procedures MRI THORACIC SPINE WO/W IVCON MRI SPINAL CANAL THORACIC W/O & W/CONTR MATRL Richard Jenkins, [address] [place] [address] [place] [address] Referral ID Status Reason Start Date Expiration Date Visits Requested Visits Authorized [id number] Authorized Auto-Generat ed Referral 08/10/2023 09/08/2024 1 1 Referral ID Status Reason Start Date Expiration Date V isits Requested Visits Authorized [id number] Closed Auto-Generate d Referral 08/10/2023 09/08/2024 1 1 Specialty Diagnoses / Procedures Referred By Contac t Referred To Contact Endocrinology Diagnoses Mixed hyperlipidemia Coronary 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 pectoris Procedures CONSULT TO ENDOCRINOLOGY OFFICE/OUTPATIENT [facility] 60 MINUTES Yaw Singh MD [address] [place] [address] Referral ID Status Reason Start Date Expiration Date Visits Requested Visits Authorized [id number] Authorized PCP Requested Referral 10/08/2023 10/07/2024 1 1 Specialty Diagnoses / Procedures Referred By Contac t Referred To Contact MR IMAGING Diagnoses Malignant neoplasm of lower third of esophagus (HCC) Closed wedge compression fracture of T10 vertebra with delayed healing, subsequent encounter Procedures MRI THORACIC SPINE WO/W IVCON MRI SPINAL CANAL THORACIC W/O & W/CONTR MATRL Richard Jenkins, DO [address] [place] [address] [place] [address] Referral ID Status Reason Start Date Expiration Date Visits Requested Visits Authorized [id number] Authorized Auto-Generat ed Referral 05/02/2024 06/01/2025 1 1 Specialty Diagnoses / Procedures Referred By Contac t Referred To Contact CT IMAGING Diagnoses Malignant neoplasm of lower third of esophagus (HCC) Procedures CT ABD/PEL WO IVCON CT ABD & PELVIS W/O CONTRAST Richard Jenkins, DO [address] [place] [address] Ct Imaging [id number] Referral ID Status Reason Start Date Expiration Date Visits Requested Visits Authorized [id number] Authorized Auto-Generat ed Referral 05/02/2024 06/01/2025 1 1 Specialty Diagnoses / Procedures Referred By Contac t Referred To Contact CT IMAGING Diagnoses Malignant neoplasm of lower third of esophagus (HCC) Procedures CT CHEST WO IVCON DIAGNOSTIC COMPUTED TOMOGRAPHY THORAX W/O CNTRST Richard Jenkins, DO [address] [place] [address] [place] [address] Referral ID Status Reason Start Date Expiration Date Visits Requested Visits Authorized [id number] Authorized Auto-Generat ed Referral 05/02/2024 06/01/2025 1 1 Referral ID Status Reason Start Date Expiration Date V isits Requested Visits Authorized [id number] Closed Auto-Generate d Referral 05/02/2024 06/01/2025 1 1 Discharge Instructions * Instructions* MehdiVern, BOATING SAFETY OFFICER - LIFE MANAGEMENT TEACHER - 03/03/2019 - Please call the [facility] with any questions: [phone] -You will have have the following follow [...] es ophagus Atherosclerosis of coronary artery of [place] heart without angina pectoris Hyperlipidemia History of aortic valve replacement Chief Complaint E ORDERS Chief Complaint Admit Date DIALYSIS VEIN MAPPING April 24, 2024 8:03am Dialysis Access Consult April 28 1:53pm S/P [facility] 11/10 Pericardial Effusion/ Preo p Eval April [...] April 1:49pm Atherosclerosis of coronary artery of [place] heart without angina pectoris April 29, 2024 1:49pm Chief Complaint Admit Date DIALYSIS VEIN MAPPING April 24, 2024 8:03am Dialysis Access Consult April 28 1:53pm S/P [facility] 11/10 Pericardial Effusion/ Preo p Eval April [...] April 1:49pm Atherosclerosis of coronary artery of [place] heart without angina pectoris April 29, 2024 [...] 9:28am Compression fracture of L4 vertebra Augu st 2024 9:28am Compression fracture of L5 vertebra Augu [facility] 2024 9:28am Additional Source Comments (unrecognized sect [...] DATE CREATED AUTHOR AUTHOR'S ORGANIZ ATION 12/31/2017 [facility] [employer] DATE CREATED AUTHOR AUTHOR'S ORGANIZ ATION 01/11/2019 [facility] DATE CREATED AUTHOR AUTHOR'S ORGANIZ ATION 03/05/2020 [facility] DATE CREATED AUTHOR AUTHOR'S ORGANIZ ATION 09/01/2020 [facility] ([place]) DATE CREATED AUTHOR AUTHOR'S ORGANIZ ATION 05/07/2021 [facility] DATE CREATED AUTHOR AUTHOR'S ORGANIZ ATION 04/10/2023 [facility] DATE CREATED AUTHOR AUTHOR'S ORGANIZ ATION 04/19/2023 [facility] DATE CREATED AUTHOR AUTHOR'S ORGANIZ ATION 02/03/2024 [facility] DATE CREATED AUTHOR AUTHOR'S ORGANIZ ATION 02/14/2025 [facility] DATE CREATED AUTHOR AUTHOR'S ORGANIZ ATION 02/18/2025 [facility] Source Comments (unrecognize d section and content) In the event this informatio n is protected by the Federal Confidentiality of Alcohol and Drug Abuse Patient Records regulations: The Federal rules restrict any use of the information to criminally investigate or prosecute any alcohol or drug abuse patient.[facility] the event this information is protected by the Federal Confidentiality of Alcohol and Drug Abuse Patient Records regulations: The Federal rules restrict any use of the information to criminally investigate or prosecute any alcohol or drug abuse patient.[facility] Center[facility] the event this information is protected by the Federal Confidentiality of Alcohol and Drug Abuse Patient Records regulations: The Federal rules restrict any use of the information to criminally investigate or prosecute any alcohol or drug abuse patient.[facility] Center[facility] the event this information is protected by the Federal Confidentiality of Alcohol and Drug Abuse Patient Records regulations: The Federal rules restrict any use of the information to criminally investigate or prosecute any alcohol or drug abuse patient.[facility] Center[facility] the event this information is protected by the Federal Confidentiality of Alcohol and Drug Abuse Patient Records regulations: The Federal rules restrict any use of the information to criminally investigate or prosecute any alcohol or drug abuse patient.[facility] Center[facility] the event this information is protected by the Federal Confidentiality of Alcohol and Drug Abuse Patient Records regulations: The Federal rules restrict any use of the information to criminally investigate or prosecute any alcohol or drug abuse patient.[facility] Center[facility] the event this information is protected by the Federal Confidentiality of Alcohol and Drug Abuse Patient Records regulations: The Federal rules restrict any use of the information to criminally investigate or prosecute any alcohol or drug abuse patient.[facility] Center[facility] the event this information is protected by the Federal Confidentiality of Alcohol and Drug Abuse Patient Records regulations: The Federal rules restrict any use of the information to criminally investigate or prosecute any alcohol or drug abuse patient.[facility] Center[facility] the event this information is protected by the Federal Confidentiality of Alcohol and Drug Abuse Patient Records regulations: The Federal rules restrict any use of the information to criminally investigate or prosecute any alcohol or drug abuse patient.[facility] Center[facility] the event this information is protected by the Federal Confidentiality of Alcohol and Drug Abuse Patient Records regulations: The Federal rules restrict any use of the information to criminally investigate or prosecute any alcohol or drug abuse patient.[facility] CenterIn the event this information is protected by the Federal Confidentiality of Alcohol and Drug Abuse Patient Records regulations: The Federal rules restrict any use of the information to criminally investigate or prosecute any alcohol or drug abuse patient.[facility] CenterIn the event this information is protected by the Federal Confidentiality of Alcohol and Drug Abuse Patient Records regulations: The Federal rules restrict any use of the information to criminally investigate or prosecute any alcohol or drug abuse patient.[facility] CenterIn the event this information is protected by the Federal Confidentiality of Alcohol and Drug Abuse Patient Records regulations: The Federal rules restrict any use of the information to criminally investigate or prosecute any alcohol or drug abuse patient.[facility] CenterIn the event this information is protected by the Federal Confidentiality of Alcohol and Drug Abuse Patient Records regulations: The Federal rules restrict any use of the information to criminally investigate or prosecute any alcohol or drug abuse patient.[facility] CenterIn the event this information is protected by the Federal Confidentiality of Alcohol and Drug Abuse Patient Records regulations: The Federal rules restrict any use of the information to criminally investigate or prosecute any alcohol or drug abuse patient.[facility] CenterIn the event this information is protected by the Federal Confidentiality of Alcohol and Drug Abuse Patient Records regulations: The Federal rules restrict any use of the information to criminally investigate or prosecute any alcohol or drug abuse patient.[facility] CenterIn the event this information is protected by the Federal Confidentiality of Alcohol and Drug Abuse Patient Records regulations: The Federal rules restrict any use of the information to criminally investigate or prosecute any alcohol or drug abuse patient.[facility] CenterIn the event this information is protected by the Federal Confidentiality of Alcohol and Drug Abuse Patient Records regulations: The Federal rules restrict any use of the information to criminally investigate or prosecute any alcohol or drug abuse patient.[facility] CenterIn the event this information is protected by the Federal Confidentiality of Alcohol and Drug Abuse Patient Records regulations: The Federal rules restrict any use of the information to criminally investigate or prosecute any alcohol or drug abuse patient.[facility] CenterIn the event this information is protected by the Federal Confidentiality of Alcohol and Drug Abuse Patient Records regulations: The Federal rules restrict any use of the information to criminally investigate or prosecute any alcohol or drug abuse patient.[facility] CenterIn the event this information is protected by the Federal Confidentiality of Alcohol and Drug Abuse Patient Records regulations: The Federal rules restrict any use of the information to criminally investigate or prosecute any alcohol or drug abuse patient.[facility] CenterIn the event this information is protected by the Federal Confidentiality of Alcohol and Drug Abuse Patient Records regulations: The Federal rules restrict any use of the information to criminally investigate or prosecute any alcohol or drug abuse patient.[facility] CenterIn the event this information is protected by the Federal Confidentiality of Alcohol and Drug Abuse Patient Records regulations: The Federal rules restrict any use of the information to criminally investigate or prosecute any alcohol or drug abuse patient.[facility] CenterIn the event this information is protected by the Federal Confidentiality of Alcohol and Drug Abuse Patient Records regulations: The Federal rules restrict any use of the information to criminally investigate or prosecute any alcohol or drug abuse patient.[facility] CenterIn the event this information is protected by the Federal Confidentiality of Alcohol and Drug Abuse Patient Records regulations: The Federal rules restrict any use of the information to criminally investigate or prosecute any alcohol or drug abuse patient.[facility] CenterIn the event this information is protected by the Federal Confidentiality of Alcohol and Drug Abuse Patient Records regulations: The Federal rules restrict any use of the information to criminally investigate or prosecute any alcohol or drug abuse patient.[facility] CenterIn the event this information is protected by the Federal Confidentiality of Alcohol and Drug Abuse Patient Records regulations: The Federal rules restrict any use of the information to criminally investigate or prosecute any alcohol or drug abuse patient.[facility] CenterIn the event this information is protected by the Federal Confidentiality of Alcohol and Drug Abuse Patient Records regulations: The Federal rules restrict any use of the information to criminally investigate or prosecute any alcohol or drug abuse patient.[facility] CenterIn the event this information is protected by the Federal Confidentiality of Alcohol and Drug Abuse Patient Records regulations: The Federal rules restrict any use of the information to criminally investigate or prosecute any alcohol or drug abuse patient.[facility] CenterIn the event this information is protected by the Federal Confidentiality of Alcohol and Drug Abuse Patient Records regulations: The Federal rules restrict any use of the information to criminally investigate or prosecute any alcohol or drug abuse patient.[facility] CenterIn the event this information is protected by the Federal Confidentiality of Alcohol and Drug Abuse Patient Records regulations: The Federal rules restrict any use of the information to criminally investigate or prosecute any alcohol or drug abuse patient.[facility] CenterIn the event this information is protected by the Federal Confidentiality of Alcohol and Drug Abuse Patient Records regulations: The Federal rules restrict any use of the information to criminally investigate or prosecute any alcohol or drug abuse patient.[facility] CenterIn the event this information is protected by the Federal Confidentiality of Alcohol and Drug Abuse Patient Records regulations: The Federal rules restrict any use of the information to criminally investigate or prosecute any alcohol or drug abuse patient.[facility] CenterIn the event this information is protected by the Federal Confidentiality of Alcohol and Drug Abuse Patient Records regulations: The Federal rules restrict any use of the information to criminally investigate or prosecute any alcohol or drug abuse patient.[facility] CenterIn the event this information is protected by the Federal Confidentiality of Alcohol and Drug Abuse Patient Records regulations: The Federal rules restrict any use of the information to criminally investigate or prosecute any alcohol or drug abuse patient.[facility] CenterIn the event this information is protected by the Federal Confidentiality of Alcohol and Drug Abuse Patient Records regulations: The Federal rules restrict any use of the information to criminally investigate or prosecute any alcohol or drug abuse patient.[facility] CenterIn the event this information is protected by the Federal Confidentiality of Alcohol and Drug Abuse Patient Records regulations: The Federal rules restrict any use of the information to criminally investigate or prosecute any alcohol or drug abuse patient.[facility] CenterIn the event this information is protected by the Federal Confidentiality of Alcohol and Drug Abuse Patient Records regulations: The Federal rules restrict any use of the information to criminally investigate or prosecute any alcohol or drug abuse patient.[facility] CenterIn the event this information is protected by the Federal Confidentiality of Alcohol and Drug Abuse Patient Records regulations: The Federal rules restrict any use of the information to criminally investigate or prosecute any alcohol or drug abuse patient.[facility] CenterIn the event this information is protected by the Federal Confidentiality of Alcohol and Drug Abuse Patient Records regulations: The Federal rules restrict any use of the information to criminally investigate or prosecute any alcohol or drug abuse patient.[facility] CenterIn the event this information is protected by the Federal Confidentiality of Alcohol and Drug Abuse Patient Records regulations: The Federal rules restrict any use of the information to criminally investigate or prosecute any alcohol or drug abuse patient.[facility] CenterIn the event this information is protected by the Federal Confidentiality of Alcohol and Drug Abuse Patient Records regulations: The Federal rules restrict any use of the information to criminally investigate or prosecute any alcohol or drug abuse patient.[facility] CenterIn the event this information is protected by the Federal Confidentiality of Alcohol and Drug Abuse Patient Records regulations: The Federal rules restrict any use of the information to criminally investigate or prosecute any alcohol or drug abuse patient.[facility] CenterIn the event this information is protected by the Federal Confidentiality of Alcohol and Drug Abuse Patient Records regulations: The Federal rules restrict any use of the information to criminally investigate or prosecute any alcohol or drug abuse patient.[facility] CenterIn the event this information is protected by the Federal Confidentiality of Alcohol and Drug Abuse Patient Records regulations: The Federal rules restrict any use of the information to criminally investigate or prosecute any alcohol or drug abuse patient.[facility] CenterIn the event this information is protected by the Federal Confidentiality of Alcohol and Drug Abuse Patient Records regulations: The Federal rules restrict any use of the information to criminally investigate or prosecute any alcohol or drug abuse patient.[facility] CenterIn the event this information is protected by the Federal Confidentiality of Alcohol and Drug Abuse Patient Records regulations: The Federal rules restrict any use of the information to criminally investigate or prosecute any alcohol or drug abuse patient.[facility]In the event this information is protected by the Federal Confidentiality of Alcohol and Drug Abuse Patient Records regulations: The Federal rules restrict any use of the information to criminally investigate or prosecute any alcohol or drug abuse patient.[facility] CenterIn the event this information is protected by the Federal Confidentiality of Alcohol and Drug Abuse Patient Records regulations: The Federal rules restrict any use of the information to criminally investigate or prosecute any alcohol or drug abuse patient.[facility] CenterIn the event this information is protected by the Federal Confidentiality of Alcohol and Drug Abuse Patient Records regulations: The Federal rules restrict any use of the information to criminally investigate or prosecute any alcohol or drug abuse patient.[facility] CenterIn the event this information is protected by the Federal Confidentiality of Alcohol and Drug Abuse Patient Records regulations: The Federal rules restrict any use of the information to criminally investigate or prosecute any alcohol or drug abuse patient.[facility] CenterIn the event this information is protected by the Federal Confidentiality of Alcohol and Drug Abuse Patient Records regulations: The Federal rules restrict any use of the information to criminally investigate or prosecute any alcohol or drug abuse patient.[facility] CenterIn the event this information is protected by the Federal Confidentiality of Alcohol and Drug Abuse Patient Records regulations: The Federal rules restrict any use of the information to criminally investigate or prosecute any alcohol or drug abuse patient.[facility] CenterIn the event this information is protected by the Federal Confidentiality of Alcohol and Drug Abuse Patient Records regulations: The Federal rules restrict any use of the information to criminally investigate or prosecute any alcohol or drug abuse patient.[facility] CenterIn the event this information is protected by the Federal Confidentiality of Alcohol and Drug Abuse Patient Records regulations: The Federal rules restrict any use of the information to criminally investigate or prosecute any alcohol or drug abuse patient.[facility] CenterIn the event this information is protected by the Federal Confidentiality of Alcohol and Drug Abuse Patient Records regulations: The Federal rules restrict any use of the information to criminally investigate or prosecute any alcohol or drug abuse patient.[facility] CenterIn the event this information is protected by the Federal Confidentiality of Alcohol and Drug Abuse Patient Records regulations: The Federal rules restrict any use of the information to criminally investigate or prosecute any alcohol or drug abuse patient.[facility] CenterIn the event this information is protected by the Federal Confidentiality of Alcohol and Drug Abuse Patient Records regulations: The Federal rules restrict any use of the information to criminally investigate or prosecute any alcohol or drug abuse patient.[facility] CenterIn the event this information is protected by the Federal Confidentiality of Alcohol and Drug Abuse Patient Records regulations: The Federal rules restrict any use of the information to criminally investigate or prosecute any alcohol or drug abuse patient.[facility] CenterIn the event this information is protected by the Federal Confidentiality of Alcohol and Drug Abuse Patient Records regulations: The Federal rules restrict any use of the information to criminally investigate or prosecute any alcohol or drug abuse patient.[facility] CenterIn the event this information is protected by the Federal Confidentiality of Alcohol and Drug Abuse Patient Records regulations: The Federal rules restrict any use of the information to criminally investigate or prosecute any alcohol or drug abuse patient.[facility] CenterIn the event this information is protected by the Federal Confidentiality of Alcohol and Drug Abuse Patient Records regulations: The Federal rules restrict any use of the information to criminally investigate or prosecute any alcohol or drug abuse patient.[facility] CenterIn the event this information is protected by the Federal Confidentiality of Alcohol and Drug Abuse Patient Records regulations: The Federal rules restrict any use of the information to criminally investigate or prosecute any alcohol or drug abuse patient.[facility]In the event this information is protected by the Federal Confidentiality of Alcohol and Drug Abuse Patient Records regulations: The Federal rules restrict any use of the information to criminally investigate or prosecute any alcohol or drug abuse patient.[facility]In the event this information is protected by the Federal Confidentiality of Alcohol and Drug Abuse Patient Records regulations: The Federal rules restrict any use of the information to criminally investigate or prosecute any alcohol or drug abuse patient.[facility] CenterIn the event this information is protected by the Federal Confidentiality of Alcohol and Drug Abuse Patient Records regulations: The Federal rules restrict any use of the information to criminally investigate or prosecute any alcohol or drug abuse patient.[facility]In the event this information is protected by the Federal Confidentiality of Alcohol and Drug Abuse Patient Records regulations: The Federal rules restrict any use of the information to criminally investigate or prosecute any alcohol or drug abuse patient.[facility] CenterIn the event this information is protected by the Federal Confidentiality of Alcohol and Drug Abuse Patient Records regulations: The Federal rules restrict any use of the information to criminally investigate or prosecute any alcohol or drug abuse patient.[facility] CenterIn the event this information is protected by the Federal Confidentiality of Alcohol and Drug Abuse Patient Records regulations: The Federal rules restrict any use of the information to criminally investigate or prosecute any alcohol or drug abuse patient.[facility] CenterIn the event this information is protected by the Federal Confidentiality of Alcohol and Drug Abuse Patient Records regulations: The Federal rules restrict any use of the information to criminally investigate or prosecute any alcohol or drug abuse patient.[facility] CenterIn the event this information is protected by the Federal Confidentiality of Alcohol and Drug Abuse Patient Records regulations: The Federal rules restrict any use of the information to criminally investigate or prosecute any alcohol or drug abuse patient.[facility] CenterIn the event this information is protected by the Federal Confidentiality of Alcohol and Drug Abuse Patient Records regulations: The Federal rules restrict any use of the information to criminally investigate or prosecute any alcohol or drug abuse patient.[facility] CenterIn the event this information is protected by the Federal Confidentiality of Alcohol and Drug Abuse Patient Records regulations: The Federal rules restrict any use of the information to criminally investigate or prosecute any alcohol or drug abuse patient.[facility] CenterIn the event this information is protected by the Federal Confidentiality of Alcohol and Drug Abuse Patient Records regulations: The Federal rules restrict any use of the information to criminally investigate or prosecute any alcohol or drug abuse patient.[facility] CenterIn the event this information is protected by the Federal Confidentiality of Alcohol and Drug Abuse Patient Records regulations: The Federal rules restrict any use of the information to criminally investigate or prosecute any alcohol or drug abuse patient.[facility] CenterIn the event this information is protected by the Federal Confidentiality of Alcohol and Drug Abuse Patient Records regulations: The Federal rules restrict any use of the information to criminally investigate or prosecute any alcohol or drug abuse patient.[facility] CenterIn the event this information is protected by the Federal Confidentiality of Alcohol and Drug Abuse Patient Records regulations: The Federal rules restrict any use of the information to criminally investigate or prosecute any alcohol or drug abuse patient.[facility] CenterIn the event this information is protected by the Federal Confidentiality of Alcohol and Drug Abuse Patient Records regulations: The Federal rules restrict any use of the information to criminally investigate or prosecute any alcohol or drug abuse patient.[facility] CenterIn the event this information is protected by the Federal Confidentiality of Alcohol and Drug Abuse Patient Records regulations: The Federal rules restrict any use of the information to criminally investigate or prosecute any alcohol or drug abuse patient.[facility] CenterIn the event this information is protected by the Federal Confidentiality of Alcohol and Drug Abuse Patient Records regulations: The Federal rules restrict any use of the information to criminally investigate or prosecute any alcohol or drug abuse patient.[facility]In the event this information is protected by the Federal Confidentiality of Alcohol and Drug Abuse Patient Records regulations: The Federal rules restrict any use of the information to criminally investigate or prosecute any alcohol or drug abuse patient.[facility]In the event this information is protected by the Federal Confidentiality of Alcohol and Drug Abuse Patient Records regulations: The Federal rules restrict any use of the information to criminally investigate or prosecute any alcohol or drug abuse patient.[facility] CenterIn the event this information is protected by the Federal Confidentiality of Alcohol and Drug Abuse Patient Records regulations: The Federal rules restrict any use of the information to criminally investigate or prosecute any alcohol or drug abuse patient.[facility]In the event this information is protected by the Federal Confidentiality of Alcohol and Drug Abuse Patient Records regulations: The Federal rules restrict any use of the information to criminally investigate or prosecute any alcohol or drug abuse patient.[facility] CenterIn the event this information is protected by the Federal Confidentiality of Alcohol and Drug Abuse Patient Records regulations: The Federal rules restrict any use of the information to criminally investigate or prosecute any alcohol or drug abuse patient.[facility] CenterIn the event this information is protected by the Federal Confidentiality of Alcohol and Drug Abuse Patient Records regulations: The Federal rules restrict any use of the information to criminally investigate or prosecute any alcohol or drug abuse patient.[facility] CenterIn the event this information is protected by the Federal Confidentiality of Alcohol and Drug Abuse Patient Records regulations: The Federal rules restrict any use of the information to criminally investigate or prosecute any alcohol or drug abuse patient.[facility] CenterIn the event this information is protected by the Federal Confidentiality of Alcohol and Drug Abuse Patient Records regulations: The Federal rules restrict any use of the information to criminally investigate or prosecute any alcohol or drug abuse patient.[facility] CenterIn the event this information is protected by the Federal Confidentiality of Alcohol and Drug Abuse Patient Records regulations: The Federal rules restrict any use of the information to criminally investigate or prosecute any alcohol or drug abuse patient.[facility] CenterIn the event this information is protected by the Federal Confidentiality of Alcohol and Drug Abuse Patient Records regulations: The Federal rules restrict any use of the information to criminally investigate or prosecute any alcohol or drug abuse patient.[facility] CenterIn the event this information is protected by the Federal Confidentiality of Alcohol and Drug Abuse Patient Records regulations: The Federal rules restrict any use of the information to criminally investigate or prosecute any alcohol or drug abuse patient.[facility] CenterIn the event this information is protected by the Federal Confidentiality of Alcohol and Drug Abuse Patient Records regulations: The Federal rules restrict any use of the information to criminally investigate or prosecute any alcohol or drug abuse patient.[facility] CenterIn the event this information is protected by the Federal Confidentiality of Alcohol and Drug Abuse Patient Records regulations: The Federal rules restrict any use of the information to criminally investigate or prosecute any alcohol or drug abuse patient.[facility] CenterIn the event this information is protected by the Federal Confidentiality of Alcohol and Drug Abuse Patient Records regulations: The Federal rules restrict any use of the information to criminally investigate or prosecute any alcohol or drug abuse patient.[facility] CenterIn the event this information is protected by the Federal Confidentiality of Alcohol and Drug Abuse Patient Records regulations: The Federal rules restrict any use of the information to criminally investigate or prosecute any alcohol or drug abuse patient.[facility] CenterIn the event this information is protected by the Federal Confidentiality of Alcohol and Drug Abuse Patient Records regulations: The Federal rules restrict any use of the information to criminally investigate or prosecute any alcohol or drug abuse patient.[facility] CenterIn the event this information is protected by the Federal Confidentiality of Alcohol and Drug Abuse Patient Records regulations: The Federal rules restrict any use of the information to criminally investigate or prosecute any alcohol or drug abuse patient.[facility] CenterIn the event this information is protected by the Federal Confidentiality of Alcohol and Drug Abuse Patient Records regulations: The Federal rules restrict any use of the information to criminally investigate or prosecute any alcohol or drug abuse patient.[facility] CenterIn the event this information is protected by the Federal Confidentiality of Alcohol and Drug Abuse Patient Records regulations: The Federal rules restrict any use of the information to criminally investigate or prosecute any alcohol or drug abuse patient.[facility] CenterIn the event this information is protected by the Federal Confidentiality of Alcohol and Drug Abuse Patient Records regulations: The Federal rules restrict any use of the information to criminally investigate or prosecute any alcohol or drug abuse patient.[facility] CenterIn the event this information is protected by the Federal Confidentiality of Alcohol and Drug Abuse Patient Records regulations: The Federal rules restrict any use of the information to criminally investigate or prosecute any alcohol or drug abuse patient.[facility] CenterIn the event this information is protected by the Federal Confidentiality of Alcohol and Drug Abuse Patient Records regulations: The Federal rules restrict any use of the information to criminally investigate or prosecute any alcohol or drug abuse patient.[facility] CenterIn the event this information is protected by the Federal Confidentiality of Alcohol and Drug Abuse Patient Records regulations: The Federal rules restrict any use of the information to criminally investigate or prosecute any alcohol or drug abuse patient.[facility] CenterIn the event this information is protected by the Federal Confidentiality of Alcohol and Drug Abuse Patient Records regulations: The Federal rules restrict any use of the information to criminally investigate or prosecute any alcohol or drug abuse patient.[facility] CenterIn the event this information is protected by the Federal Confidentiality of Alcohol and Drug Abuse Patient Records regulations: The Federal rules restrict any use of the information to criminally investigate or prosecute any alcohol or drug abuse patient.[facility] CenterIn the event this information is protected by the Federal Confidentiality of Alcohol and Drug Abuse Patient Records regulations: The Federal rules restrict any use of the information to criminally investigate or prosecute any alcohol or drug abuse patient.[facility] CenterIn the event this information is protected by the Federal Confidentiality of Alcohol and Drug Abuse Patient Records regulations: The Federal rules restrict any use of the information to criminally investigate or prosecute any alcohol or drug abuse patient.[facility] CenterIn the event this information is protected by the Federal Confidentiality of Alcohol and Drug Abuse Patient Records regulations: The Federal rules restrict any use of the information to criminally investigate or prosecute any alcohol or drug abuse patient.[facility] CenterIn the event this information is protected by the Federal Confidentiality of Alcohol and Drug Abuse Patient Records regulations: The Federal rules restrict any use of the information to criminally investigate or prosecute any alcohol or drug abuse patient.[facility] CenterIn the event this information is protected by the Federal Confidentiality of Alcohol and Drug Abuse Patient Records regulations: The Federal rules restrict any use of the information to criminally investigate or prosecute any alcohol or drug abuse patient.[facility] CenterIn the event this information is protected by the Federal Confidentiality of Alcohol and Drug Abuse Patient Records regulations: The Federal rules restrict any use of the information to criminally investigate or prosecute any alcohol or drug abuse patient.[facility] CenterIn the event this information is protected by the Federal Confidentiality of Alcohol and Drug Abuse Patient Records regulations: The Federal rules restrict any use of the information to criminally investigate or prosecute any alcohol or drug abuse patient.[facility] CenterIn the event this information is protected by the Federal Confidentiality of Alcohol and Drug Abuse Patient Records regulations: The Federal rules restrict any use of the information to criminally investigate or prosecute any alcohol or drug abuse patient.[facility] CenterIn the event this information is protected by the Federal Confidentiality of Alcohol and Drug Abuse Patient Records regulations: The Federal rules restrict any use of the information to criminally investigate or prosecute any alcohol or drug abuse patient.[facility] CenterIn the event this information is protected by the Federal Confidentiality of Alcohol and Drug Abuse Patient Records regulations: The Federal rules restrict any use of the information to criminally investigate or prosecute any alcohol or drug abuse patient.[facility] CenterIn the event this information is protected by the Federal Confidentiality of Alcohol and Drug Abuse Patient Records regulations: The Federal rules restrict any use of the information to criminally investigate or prosecute any alcohol or drug abuse patient.[facility] CenterIn the event this information is protected by the Federal Confidentiality of Alcohol and Drug Abuse Patient Records regulations: The Federal rules restrict any use of the information to criminally investigate or prosecute any alcohol or drug abuse patient.[facility] CenterIn the event this information is protected by the Federal Confidentiality of Alcohol and Drug Abuse Patient Records regulations: The Federal rules restrict any use of the information to criminally investigate or prosecute any alcohol or drug abuse patient.[facility] CenterIn the event this information is protected by the Federal Confidentiality of Alcohol and Drug Abuse Patient Records regulations: The Federal rules restrict any use of the information to criminally investigate or prosecute any alcohol or drug abuse patient.[facility] CenterIn the event this information is protected by the Federal Confidentiality of Alcohol and Drug Abuse Patient Records regulations: The Federal rules restrict any use of the information to criminally investigate or prosecute any alcohol or drug abuse patient.[facility] CenterIn the event this information is protected by the Federal Confidentiality of Alcohol and Drug Abuse Patient Records regulations: The Federal rules restrict any use of the information to criminally investigate or prosecute any alcohol or drug abuse patient.[facility] CenterIn the event this information is protected by the Federal Confidentiality of Alcohol and Drug Abuse Patient Records regulations: The Federal rules restrict any use of the information to criminally investigate or prosecute any alcohol or drug abuse patient.[facility] CenterIn the event this information is protected by the Federal Confidentiality of Alcohol and Drug Abuse Patient Records regulations: The Federal rules restrict any use of the information to criminally investigate or prosecute any alcohol or drug abuse patient.[facility] CenterIn the event this information is protected by the Federal Confidentiality of Alcohol and Drug Abuse Patient Records regulations: The Federal rules restrict any use of the information to criminally investigate or prosecute any alcohol or drug abuse patient.[facility] CenterIn the event this information is protected by the Federal Confidentiality of Alcohol and Drug Abuse Patient Records regulations: The Federal rules restrict any use of the information to criminally investigate or prosecute any alcohol or drug abuse patient.[facility] CenterIn the event this information is protected by the Federal Confidentiality of Alcohol and Drug Abuse Patient Records regulations: The Federal rules restrict any use of the information to criminally investigate or prosecute any alcohol or drug abuse patient.[facility] CenterIn the event this information is protected by the Federal Confidentiality of Alcohol and Drug Abuse Patient Records regulations: The Federal rules restrict any use of the information to criminally investigate or prosecute any alcohol or drug abuse patient.[facility] CenterIn the event this information is protected by the Federal Confidentiality of Alcohol and Drug Abuse Patient Records regulations: The Federal rules restrict any use of the information to criminally investigate or prosecute any alcohol or drug abuse patient.[facility] CenterIn the event this information is protected by the Federal Confidentiality of Alcohol and Drug Abuse Patient Records regulations: The Federal rules restrict any use of the information to criminally investigate or prosecute any alcohol or drug abuse patient.[facility] CenterIn the event this information is protected by the Federal Confidentiality of Alcohol and Drug Abuse Patient Records regulations: The Federal rules restrict any use of the information to criminally investigate or prosecute any alcohol or drug abuse patient.[facility] CenterIn the event this information is protected by the Federal Confidentiality of Alcohol and Drug Abuse Patient Records regulations: The Federal rules restrict any use of the information to criminally investigate or prosecute any alcohol or drug abuse patient.[facility] CenterIn the event this information is protected by the Federal Confidentiality of Alcohol and Drug Abuse Patient Records regulations: The Federal rules restrict any use of the information to criminally investigate or prosecute any alcohol or drug abuse patient.[facility] CenterIn the event this information is protected by the Federal Confidentiality of Alcohol and Drug Abuse Patient Records regulations: The Federal rules restrict any use of the information to criminally investigate or prosecute any alcohol or drug abuse patient.[facility] CenterIn the event this information is protected by the Federal Confidentiality of Alcohol and Drug Abuse Patient Records regulations: The Federal rules restrict any use of the information to criminally investigate or prosecute any alcohol or drug abuse patient.[facility] CenterIn the event this information is protected by the Federal Confidentiality of Alcohol and Drug Abuse Patient Records regulations: The Federal rules restrict any use of the information to criminally investigate or prosecute any alcohol or drug abuse patient.[facility] CenterIn the event this information is protected by the Federal Confidentiality of Alcohol and Drug Abuse Patient Records regulations: The Federal rules restrict any use of the information to criminally investigate or prosecute any alcohol or drug abuse patient.[facility] CenterIn the event this information is protected by the Federal Confidentiality of Alcohol and Drug Abuse Patient Records regulations: The Federal rules restrict any use of the information to criminally investigate or prosecute any alcohol or drug abuse patient.[facility] CenterIn the event this information is protected by the Federal Confidentiality of Alcohol and Drug Abuse Patient Records regulations: The Federal rules restrict any use of the information to criminally investigate or prosecute any alcohol or drug abuse patient.[facility] CenterIn the event this information is protected by the Federal Confidentiality of Alcohol and Drug Abuse Patient Records regulations: The Federal rules restrict any use of the information to criminally investigate or prosecute any alcohol or drug abuse patient.[facility] CenterIn the event this information is protected by the Federal Confidentiality of Alcohol and Drug Abuse Patient Records regulations: The Federal rules restrict any use of the information to criminally investigate or prosecute any alcohol or drug abuse patient.[facility] CenterIn the event this information is protected by the Federal Confidentiality of Alcohol and Drug Abuse Patient Records regulations: The Federal rules restrict any use of the information to criminally investigate or prosecute any alcohol or drug abuse patient.[facility] CenterIn the event this information is protected by the Federal Confidentiality of Alcohol and Drug Abuse Patient Records regulations: The Federal rules restrict any use of the information to criminally investigate or prosecute any alcohol or drug abuse patient.[facility] CenterIn the event this information is protected by the Federal Confidentiality of Alcohol and Drug Abuse Patient Records regulations: The Federal rules restrict any use of the information to criminally investigate or prosecute any alcohol or drug abuse patient.[facility]In the event this information is protected by the Federal Confidentiality of Alcohol and Drug Abuse Patient Records regulations: The Federal rules restrict any use of the information to criminally investigate or prosecute any alcohol or drug abuse patient.[facility]In the event this information is protected by the Federal Confidentiality of Alcohol and Drug Abuse Patient Records regulations: The Federal rules restrict any use of the information to criminally investigate or prosecute any alcohol or drug abuse patient.[facility] CenterIn the event this information is protected by the Federal Confidentiality of Alcohol and Drug Abuse Patient Records regulations: The Federal rules restrict any use of the information to criminally investigate or prosecute any alcohol or drug abuse patient.[facility] CenterIn the event this information is protected by the Federal Confidentiality of Alcohol and Drug Abuse Patient Records regulations: The Federal rules restrict any use of the information to criminally investigate or prosecute any alcohol or drug abuse patient.[facility] CenterIn the event this information is protected by the Federal Confidentiality of Alcohol and Drug Abuse Patient Records regulations: The Federal rules restrict any use of the information to criminally investigate or prosecute any alcohol or drug abuse patient.[facility] CenterIn the event this information is protected by the Federal Confidentiality of Alcohol and Drug Abuse Patient Records regulations: The Federal rules restrict any use of the information to criminally investigate or prosecute any alcohol or drug abuse patient.[facility] CenterIn the event this information is protected by the Federal Confidentiality of Alcohol and Drug Abuse Patient Records regulations: The Federal rules restrict any use of the information to criminally investigate or prosecute any alcohol or drug abuse patient.[facility] CenterIn the event this information is protected by the Federal Confidentiality of Alcohol and Drug Abuse Patient Records regulations: The Federal rules restrict any use of the information to criminally investigate or prosecute any alcohol or drug abuse patient.[facility] CenterIn the event this information is protected by the Federal Confidentiality of Alcohol and Drug Abuse Patient Records regulations: The Federal rules restrict any use of the information to criminally investigate or prosecute any alcohol or drug abuse patient.[facility] CenterIn the event this information is protected by the Federal Confidentiality of Alcohol and Drug Abuse Patient Records regulations: The Federal rules restrict any use of the information to criminally investigate or prosecute any alcohol or drug abuse patient.[facility] CenterIn the event this information is protected by the Federal Confidentiality of Alcohol and Drug Abuse Patient Records regulations: The Federal rules restrict any use of the information to criminally investigate or prosecute any alcohol or drug abuse patient.[facility] CenterIn the event this information is protected by the Federal Confidentiality of Alcohol and Drug Abuse Patient Records regulations: The Federal rules restrict any use of the information to criminally investigate or prosecute any alcohol or drug abuse patient.[facility] CenterIn the event this information is protected by the Federal Confidentiality of Alcohol and Drug Abuse Patient Records regulations: The Federal rules restrict any use of the information to criminally investigate or prosecute any alcohol or drug abuse patient.[facility] CenterIn the event this information is protected by the Federal Confidentiality of Alcohol and Drug Abuse Patient Records regulations: The Federal rules restrict any use of the information to criminally investigate or prosecute any alcohol or drug abuse patient.[facility] CenterIn the event this information is protected by the Federal Confidentiality of Alcohol and Drug Abuse Patient Records regulations: The Federal rules restrict any use of the information to criminally investigate or prosecute any alcohol or drug abuse patient.[facility]In the event this information is protected by the Federal Confidentiality of Alcohol and Drug Abuse Patient Records regulations: The Federal rules restrict any use of the information to criminally investigate or prosecute any alcohol or drug abuse patient.[facility] CenterIn the event this information is protected by the Federal Confidentiality of Alcohol and Drug Abuse Patient Records regulations: The Federal rules restrict any use of the information to criminally investigate or prosecute any alcohol or drug abuse patient.[facility] CenterIn the event this information is protected by the Federal Confidentiality of Alcohol and Drug Abuse Patient Records regulations: The Federal rules restrict any use of the information to criminally investigate or prosecute any alcohol or drug abuse patient.[facility] CenterIn the event this information is protected by the Federal Confidentiality of Alcohol and Drug Abuse Patient Records regulations: The Federal rules restrict any use of the information to criminally investigate or prosecute any alcohol or drug abuse patient.[facility] CenterIn the event this information is protected by the Federal Confidentiality of Alcohol and Drug Abuse Patient Records regulations: The Federal rules restrict any use of the information to criminally investigate or prosecute any alcohol or drug abuse patient.[facility] CenterIn the event this information is protected by the Federal Confidentiality of Alcohol and Drug Abuse Patient Records regulations: The Federal rules restrict any use of the information to criminally investigate or prosecute any alcohol or drug abuse patient.[facility] CenterIn the event this information is protected by the Federal Confidentiality of Alcohol and Drug Abuse Patient Records regulations: The Federal rules restrict any use of the information to criminally investigate or prosecute any alcohol or drug abuse patient.[facility] CenterIn the event this information is protected by the Federal Confidentiality of Alcohol and Drug Abuse Patient Records regulations: The Federal rules restrict any use of the information to criminally investigate or prosecute any alcohol or drug abuse patient.[facility] CenterIn the event this information is protected by the Federal Confidentiality of Alcohol and Drug Abuse Patient Records regulations: The Federal rules restrict any use of the information to criminally investigate or prosecute any alcohol or drug abuse patient.[facility] CenterIn the event this information is protected by the Federal Confidentiality of Alcohol and Drug Abuse Patient Records regulations: The Federal rules restrict any use of the information to criminally investigate or prosecute any alcohol or drug abuse patient.[facility] CenterIn the event this information is protected by the Federal Confidentiality of Alcohol and Drug Abuse Patient Records regulations: The Federal rules restrict any use of the information to criminally investigate or prosecute any alcohol or drug abuse patient.[facility] CenterIn the event this information is protected by the Federal Confidentiality of Alcohol and Drug Abuse Patient Records regulations: The Federal rules restrict any use of the information to criminally investigate or prosecute any alcohol or drug abuse patient.[facility] CenterIn the event this information is protected by the Federal Confidentiality of Alcohol and Drug Abuse Patient Records regulations: The Federal rules restrict any use of the information to criminally investigate or prosecute any alcohol or drug abuse patient.[facility] CenterIn the event this information is protected by the Federal Confidentiality of Alcohol and Drug Abuse Patient Records regulations: The Federal rules restrict any use of the information to criminally investigate or prosecute any alcohol or drug abuse patient.[facility] CenterIn the event this information is protected by the Federal Confidentiality of Alcohol and Drug Abuse Patient Records regulations: The Federal rules restrict any use of the information to criminally investigate or prosecute any alcohol or drug abuse patient.[facility] CenterIn the event this information is protected by the Federal Confidentiality of Alcohol and Drug Abuse Patient Records regulations: The Federal rules restrict any use of the information to criminally investigate or prosecute any alcohol or drug abuse patient.[facility] Reason for Visit (unrecogniz ed [...] 45 MINS Jesus Manuel Resendiz PA-C [address] [place] [address] Pt [facility] [address] [place] [address] Referral ID Status Reason Start Date Expiration Date Visits Requested Visits Authorized [id number] Authorized PCP Requested Referral Auto-Generate d Referral 07/12/2023 07/11/2024 99 99 Reason Comments Established Patient Reason Comments Results Reason Comments Chemotherapy Treatment Specialty Diagnoses / Procedures Referred By Contac t Referred To Contact Diagnoses Malignant neoplasm of lower third of esophagus (HCC) Esophageal adenocarcinoma (HCC) Richard Jenkins, DO [address] [place] [address] [facility] [address] [place] [address] Referral ID Status Reason Start Date Expiration Date V isits Requested Visits Authorized [id number] Authorized 07/14/2021 10/12/2021 99 99 Specialty Diagnoses / Procedures Referred By Contac t Referred To Contact Diagnoses Malignant neoplasm of lower third of esophagus (HCC) Esophageal adenocarcinoma (HCC) Richard Jenkins, DO [address] [place] [address] [facility] [address] [place] [address] Reason Comments Results Add T4 Specialty Diagnoses / Procedures Referred By Contac t Referred To Contact CT IMAGING Diagnoses Malignant neoplasm of lower third of esophagus (HCC) Pleural effusion Procedures CT CHEST W IVCON DIAGNOSTIC COMPUTED TOMOGRAPHY THORAX W/CONTRAST Mari Akhtar, ADALGISA.LIFE MANAGEMENT TEACHER [address] [place] [address] Ct Imaging Referral ID Status Reason Start Date Expiration Date V isits Requested Visits Authorized [id number] Closed Auto-Generate d Referral 08/24/2021 09/23/2022 1 [...] W IVCON DIAGNOSTIC COMPUTED TOMOGRAPHY THORAX W/CONTRAST ZuleikaRichard, DO [address] [place] [address] [place] [address] Referral ID Status Reason Start Date Expiration Date V isits Requested Visits Authorized [id number] Closed Auto-Generate d Referral 11/02/2021 12/02/2022 1 1 Specialty Diagnoses / Procedures Referred By Contac t Referred To Contact CT IMAGING Diagnoses Malignant neoplasm of lower third of esophagus (HCC) Procedures CT CHEST W IVCON DIAGNOSTIC COMPUTED TOMOGRAPHY THORAX W/CONTRAST Mari Akhtar APRN.LIFE MANAGEMENT TEACHER [address] [place] [address] Ct Imaging [id number] Referral ID Status Reason Start Date Expiration Date V isits Requested Visits Authorized [id number] Closed Auto-Generate d Referral 02/22/2022 03/24/2023 [address] Specialty Diagnoses / Procedures Referred By Contac t Referred To Contact CT IMAGING Diagnoses Malignant neoplasm of lower third of esophagus (HCC) Procedures CT CHEST W IVCON DIAGNOSTIC COMPUTED TOMOGRAPHY THORAX W/CONTRAST ZuleikaRichard, DO [address] [place] [address] Ct Imaging [id number] Referral ID Status Reason Start Date Expiration Date V isits Requested Visits Authorized [id number] Closed Auto-Generate d Referral 08/22/2022 09/21/2023 1 [...] INC GB W/PHARMA INTERVENJ Usha Mcgovern PA-C [address] [place] [address] Molecular & Functional Imaging [address] [place], [place] [id number] Referral ID Status Reason Start Date Expiration Date V isits Requested Visits Authorized [id number] Closed Auto-Generate d Referral 06/19/2023 07/18/2024 1 1 Reason Comments Radiology US Specialty Diagnoses / Procedures Referred By Contac t Referred To Contact US IMAGING Diagnoses RUQ pain Nausea Procedures US ABD RIGHT UPPER QUADRANT US ABDOMINAL REAL TIME W/IMAGE LIMITED Usha Mcgovern PA-C [address] [place] [address] [place] [address] Referral ID Status Reason Start Date Expiration Date V isits Requested Visits Authorized [id number] Closed Auto-Generate d Referral 06/19/2023 07/18/2024 1 1 Reason Comments New Patient Low Back Pain Back Pain middle Back Pain (Upper Back) Specialty Diagnoses / Procedures Referred By Contac t Referred To Contact [facility] [place] Diagnoses Closed wedge compression fracture of T10 vertebra with routine healing, subsequent encounter Procedures CONSULT TO [facility] OFFICE/OUTPATIENT NEW HIGH MDM 60 MINUTES Richard Jenkins, [address] [place] [address] Referral ID Status Reason Start Date Expiration Date V isits Requested Visits Authorized [id number] Closed PCP Requested Referral 06/18/2023 06/17/2024 1 1 Reason Comments Patient Question Reason Comments PT Eval Specialty Diagnoses / Procedures Referred By Contac t Referred To Contact CT IMAGING Diagnoses Malignant neoplasm of lower third of esophagus (HCC) Procedures CT ABD/PEL W IVCON CT ABD & PELVIS W/CONTRAST Richard Jenkins DO [address] [place] [address] [place] [address] Referral ID Status Reason Start Date Expiration Date V isits Requested Visits Authorized [id number] Closed Auto-Generate d Referral 07/19/2023 08/17/2024 1 1 Specialty Diagnoses / Procedures Referred By Contac t Referred To Contact CT IMAGING Diagnoses Malignant neoplasm of lower third of esophagus (HCC) Procedures CT ABD/PEL W IVCON CT ABD & PELVIS W/CONTRAST Richard Jenkins, DO [address] [place] [address] [place] [address] Reason Comments AVS 08/10/23 Reason Comments Established Patient Specialty Diagnoses / Procedures Referred By Contac t Referred To Contact MR IMAGING Diagnoses Pathological fracture of thoracic vertebra, initial encounter Procedures MRI THORACIC SPINE WO/W IVCON MRI SPINAL CANAL THORACIC W/O & W/CONTR MATRL Richard Jenkins, DO [address] [place] [address] [place] [address] Referral ID Status Reason Start Date Expiration Date V isits Requested Visits Authorized [id number] Closed Auto-Generate d Referral 08/10/2023 09/08/2024 1 1 Reason Comments ER F/U [facility] ER 09/10/23 Reason Comments Patient Update Reason Comments Biopsy Request Bone Biopsy Reason Comments F/U 6 months Reason Comments Results Reason Comments Shortness of Breath Chronic pleural effu murray Reason Comments Hospital F/U [facility] Reason Comments Consult External consult Pul [facility] admitted Reason Comments Outside EGD Reason Comments Hospital Admission [facility] Reason Comments Outside H&P Outside Nephrology [...] CONTRAST Richard Jenkins, DO [address] [place] [address] [place] [address] Referral ID Status Reason Start Date Expiration Date V isits Requested Visits Authorized [id number] Closed Auto-Generate d Referral 01/15/2024 02/13/2025 1 1 Specialty Diagnoses / Procedures Referred By Contac t Referred To Contact CT IMAGING Diagnoses Malignant neoplasm of lower third of esophagus (HCC) Procedures CT ABD/PEL WO IVCON CT ABD & PELVIS W/O CONTRAST Richard Jenkins, DO [address] [place] [address] Ct Imaging [place] [address] Reason Comments Outside Imaging Reason Comments Outside Cardiology Reason Comments Established Patient Reason Comments dog scratches on hands X 2 days Specialty Diagnoses / Procedures Referred By Contac t Referred To Contact MR IMAGING Diagnoses Malignant neoplasm of lower third of esophagus (HCC) Closed wedge compression fracture of T10 vertebra with delayed healing, subsequent encounter Procedures MRI THORACIC SPINE WO/W IVCON MRI SPINAL CANAL THORACIC W/O & W/CONTR MATRL Richard Jenkins, DO [address] [place] [address] Mr Imaging [place] [address] Referral ID Status Reason Start Date Expiration Date V isits Requested Visits Authorized [id number] Closed Auto-Generate d Referral 05/02/2024 06/01/2025 1 1 Reason Comments Referral - Kidney Txp Reason Comments Outside [id number]-TQX Ordered Reason Comments Referral - Kidney Txp Reason Comments Results Outside labs Reason Comments Patient Education Specialty Diagnoses / Procedures Referred By Contac t Referred To Contact TRANSPLANT Diagnoses ESRD on dialysis (HCC) Pre-transplant evaluation for ESRD (end stage renal disease) Procedures CONSULT TO [facility] OFFICE/OUTPATIENT [facility] MDM 60 MINUTES CHEST X-RAY, FRONT&LAT ECG ROUTINE ECG W/LEAST 12 LDS TRCG ONLY W/O I&R CT ANGIOGRAPHY CHEST W/CONTRAST/NONCONTRAST CT ABDOMEN W & W/O CONTRAST Maria Victoria Scott MD [address] [address] Phone: tel: fax: [facility] Center [address] [place] [address] Phone: tel: Referral ID Status Reason Start Date Expiration Date Visits Requested Visits Authorized [id number] Authorized Financial Clearance Required - OON Payor [...] excess Procedures CONSULT TO ENDOCRINOLOGY OFFICE/OUTPATIENT [facility] 60 MINUTES Yaw Singh MD [address] [place] [address] Phone: tel: fax: Referral ID Status Reason Start Date Expiration Date V isits Requested Visits Authorized [id number] Closed PCP Requested Referral 09/26/2024 09/26/2025 1 1 Specialty Diagnoses / Procedures Referred By Contac t Referred To Contact CT IMAGING Diagnoses Malignant neoplasm of lower third of esophagus (HCC) Procedures CT ABD/PEL WO IVCON CT ABD & PELVIS W/O CONTRAST Richard Jenkins, DO [address] [place] [address] Phone: tel: fax: [place] [address] Referral ID Status Reason Start Date Expiration Date V isits Requested Visits Authorized [id number] Closed Auto-Generate d Referral 05/02/2024 06/01/2025 1 1 Reason Onset Date Comments Population Health Navigation Outreach 11/05/2024 [employer] [facility]EMA PCSA Reason Comments avs 11/07 Reason Onset Date Comments Refill Request 12/22/2024 Reason Comments Cough Cough, sinus, conges tion and runny nose x 3 weeks Care Teams (unrecognized sec tion and content) Physician Relations Specialist Relationship Specialty Start Date End Date Yaw Singh MD [address] [place] [address] PCP - General Family Practice 08/27/20 Madan Roy MD, MD [address] [place] [facility] [place] [address] Physician Radiation Oncology 04/28/20 Luly Gaffney RN Specialty Fur Tanner Oncology 05/18/20 Richard Jenkins, DO [address] [place] [address] Referring Hematology/Oncology 05/25/20 Ludin, Haroldo S [address] [facility] [place] [address] Cardiology 06/24/20 Sena Seymour LISW Government Affairs Researcher 10/06/20 Physician Relations Specialist Relationship Specialty Start Date End Date Yaw Singh MD [address] [facility] [place] [address] PCP - General Family Practice 08/27/20 Madan Roy MD, [address] [place] [facility] [place] [address] Physician Radiation Oncology 04/28/20 Luly Gaffney RN Specialty Fur Tanner Oncology 05/18/20 Richard Jenkins, DO [address] [facility] [place] [place] [address] Referring Hematology/Oncology 05/25/20 Ludin, [place] S [address] [facility] [address] [place] [address] Cardiology 06/24/20 Snea Seymour LISW Government Affairs Researcher 10/06/20 Physician Relations Specialist Relationship Specialty Start Date End Date Yaw Singh MD [address] [facility] [place] [address] PCP - General Family Practice 08/27/20 Madan Roy MD, [address] [place] [facility] [place] [address] Physician Radiation Oncology 04/28/20 Luly Gaffney RN Specialty Fur Tanner Oncology 05/18/20 Richard Jenkins, DO [address] [place] [address] Referring Hematology/Oncology 05/25/20 Ludin, [place] S [address] [facility] [address] [place] [address] Cardiology 06/24/20 Sena Seymour LISW Government Affairs Researcher 10/06/20 Physician Relations Specialist Relationship Specialty Start Date End Date Yaw Singh MD [address] [facility] [place] [address] PCP - General Family Practice 08/27/20 Madan Roy MD, [address] [place] [facility] [place] [address] Physician Radiation Oncology 04/28/20 Luly Gaffney RN Specialty Fur Tanner Oncology 05/18/20 Richard Jenkins, DO [address] [place] [address] Referring Hematology/Oncology 05/25/20 Ludin, Haroldo S [address] [place] [address] Cardiology 06/24/20 Sena Seymour LISW Government Affairs Researcher 10/06/20 Physician Relations Specialist Relationship Specialty Start Date End Date Yaw Singh MD [address] [facility] [place] [address] PCP - General Family Practice 08/27/20 Madan Roy MD, [address] [place] [facility] [place] [address] Physician Radiation Oncology 04/28/20 Luly Gaffney RN Specialty Fur Tanner Oncology 05/18/20 Richard Jenkins, DO [address] [place] [address] Referring Hematology/Oncology 05/25/20 Ludin, Haroldo S [address] [place] [address] Cardiology 06/24/20 Sena Seymour LISW Government Affairs Researcher 10/06/20 Physician Relations Specialist Relationship Specialty Start Date End Date Yaw Singh MD [address] [place] [address] PCP - General Family Practice 08/27/20 Madan Roy MD, [address] [place] [address] Physician Radiation Oncology 04/28/20 Luly Gaffney RN Specialty Fur Tanner Oncology 05/18/20 Richard Jenkins, DO [address] [facility] [place] [address] Referring Hematology/Oncology 05/25/20 Ludin, Haroldo S [address] [facility] [address] [place] [address] Cardiology 06/24/20 Sena Seymour LISW Government Affairs Researcher 10/06/20 Physician Relations Specialist Relationship Specialty Start Date End Date Yaw Singh MD [address] [place] [address] PCP - General Family Practice 08/27/20 Madan Roy MD, [address] [place] [address] Physician Radiation Oncology 04/28/20 Luly Gaffney RN Specialty Fur Tanner Oncology 05/18/20 Richard Jenkins, DO [address] [place] [address] Referring Hematology/Oncology 05/25/20 Ludin, [place] S [address] [place] [address] Cardiology 06/24/20 Sena Seymour LISW Government Affairs Researcher 10/06/20 Physician Relations Specialist Relationship Specialty Start Date End Date Yaw Singh MD [address] [place] [address] PCP - General Family Practice 08/27/20 Madan Roy MD, [address] [facility] [place] [address] Physician Radiation Oncology 04/28/20 Luly Gaffney, RN Specialty Fur Tanner Oncology 05/18/20 Richard Jenkins, DO [address] [facility] [place] [address] Referring Hematology/Oncology 05/25/20 Ludin, Haroldo S [address] [place] [address] Cardiology 06/24/20 Sena Seymour LISW Government Affairs Researcher 10/06/20 Physician Relations Specialist Relationship Specialty Start Date End Date Yaw Singh MD [address] [place] [address] PCP - General Family Practice 08/27/20 Madan Roy MD, [address] [facility] [place] [address] Physician Radiation Oncology 04/28/20 Luly Gaffney, RN Specialty Fur Tanner Oncology 05/18/20 Richard Jenkins, DO [address] [facility] [place] [address] Referring Hematology/Oncology 05/25/20 Ludin, [place] S [address] [place] [address] Cardiology 06/24/20 Sena Seymour LISW Government Affairs Researcher 10/06/20 Physician Relations Specialist Relationship Specialty Start Date End Date Yaw Singh MD [address] [facility] [place] [address] PCP - General Family Practice 08/27/20 Madan Roy MD, [address] [place] [facility] [place] [address] Physician Radiation Oncology 04/28/20 Luly Gaffney RN Specialty Fur Tanner Oncology 05/18/20 Richard Jenkins, DO [address] [place] [facility] [place] [address] Referring Hematology/Oncology 05/25/20 Ludin, [place] S [address] [place] [address] Cardiology 06/24/20 Sena Seymour LISW Government Affairs Researcher 10/06/20 Physician Relations Specialist Relationship Specialty Start Date End Date Yaw Singh MD [address] [facility] [place] [address] PCP - General Family Practice 08/27/20 Madan Roy MD, [address] [place] [facility] [place] [address] Physician Radiation Oncology 04/28/20 Luly Gaffney RN Specialty Fur Tanner Oncology 05/18/20 Richard Jenkins, [address] [place] [address] Referring Hematology/Oncology 05/25/20 Ludin, [place] S [address] [place] [address] Cardiology 06/24/20 Sena Seymour LISW Government Affairs Researcher 10/06/20 Physician Relations Specialist Relationship Specialty Start Date End Date Yaw Singh MD [address] [facility] [place] [address] PCP - General Family Practice 08/27/20 Madan Roy MD, [address] [place] [facility] [place] [address] Physician Radiation Oncology 04/28/20 Luly Gaffney RN Specialty Fur Tanner Oncology 05/18/20 Richard Jenkins, DO [address] [facility] [place] [address] Referring Hematology/Oncology 05/25/20 Ludin, [place] S [address] [place] [address] Cardiology 06/24/20 Sena Seymour LISW Government Affairs Researcher 10/06/20 Physician Relations Specialist Relationship Specialty Start Date End Date Yaw Singh MD [address] [facility] [place] [address] PCP - General Family Practice 08/27/20 Madan Roy MD, [address] [place] [facility] [place] [address] Physician Radiation Oncology 04/28/20 Luly Gaffney RN Specialty Fur Tanner Oncology 05/18/20 Richard Jenkins, DO [address] [facility] [place] [address] Referring Hematology/Oncology 05/25/20 Ludin, [place] S [address] [place] [address] Cardiology 06/24/20 Sena Seymour LISW Government Affairs Researcher 10/06/20 Physician Relations Specialist Relationship Specialty Start Date End Date Yaw Singh MD [address] [facility] [place] [address] PCP - General Family Practice 08/27/20 Madan Roy MD, [address] [place] [place] [address] Physician Radiation Oncology 04/28/20 Luly Gaffney RN Specialty Fur Tanner Oncology 05/18/20 Richard Jenkins, DO [address] [place] [place] [address] Referring Hematology/Oncology 05/25/20 Ludin, [place] S [address] [facility] [address] [place] [address] Cardiology 06/24/20 Sena Seymour LISW Government Affairs Researcher 10/06/20 Physician Relations Specialist Relationship Specialty Start Date End Date Yaw Singh MD [address] [facility] [place] [address] PCP - General Family Practice 08/27/20 Madan Roy MD, [address] [place] [facility] [place] [address] Physician Radiation Oncology 04/28/20 Luly Gaffney RN Specialty Fur Tanner Oncology 05/18/20 Richard Jenkins, [address] [place] [address] Referring Hematology/Oncology 05/25/20 Ludin, [place] S [address] [facility] [address] [place] [address] Cardiology 06/24/20 Sena Seymour RN Government Affairs Researcher 10/06/20 Physician Relations Specialist Relationship Specialty Start Date End Date Yaw Singh MD [address] [facility] [place] [address] PCP - General Family Practice 08/27/20 Madan Roy MD, [address] [place] [address] Physician Radiation Oncology 04/28/20 Luly Gaffney RN Specialty Fur Tanner Oncology 05/18/20 Richard Jenkins, DO [address] [place] [address] Referring Hematology/Oncology 05/25/20 Ludin, Haroldo S [address] [place] [address] Cardiology 06/24/20 Sena Seymour, RN Government Affairs Researcher 10/06/20 Physician Relations Specialist Relationship Specialty Start Date End Date Yaw Singh MD [address] [place] [address] PCP - General Family Practice 08/27/20 Madan Roy MD, [address] [place] [address] Physician Radiation Oncology 04/28/20 Luly Gaffney RN Specialty Fur Tanner Oncology 05/18/20 Richard Jenkins, DO [address] [place] [address] Referring Hematology/Oncology 05/25/20 Ludin, Haroldo S [address] [facility] [address] [place] [address] Cardiology 06/24/20 Sena Seymour RN Government Affairs Researcher 10/06/20 Physician Relations Specialist Relationship Specialty Start Date End Date Yaw Singh MD [address] [place] [address] PCP - General Family Medicine 08/27/20 Madan Roy MD, [address] [place] [address] Physician Radiation Oncology 04/28/20 Luly Gaffney RN Specialty Fur Tanner Oncology 05/18/20 Richard Jenkins, DO [address] [place] [address] Referring Hematology/Oncology 05/25/20 Ludin, [place] S [address] [facility] [address] [place] [address] Cardiology 06/24/20 Sena Seymour, RN Government Affairs Researcher 10/06/20 Physician Relations Specialist Relationship Specialty Start Date End Date Yaw Singh MD [address] [place] [address] PCP - General Family Medicine 08/27/20 Madan Roy MD, [address] [place] [address] Physician Radiation Oncology 04/28/20 Luly Gaffney RN Specialty Fur Tanner Oncology 05/18/20 Richard Jenkins, DO [address] [place] [address] Referring Hematology/Oncology 05/25/20 Ludin, [place] S [address] [place] [address] Cardiology 06/24/20 Sena Seymour RN Government Affairs Researcher 10/06/20 Physician Relations Specialist Relationship Specialty Start Date End Date Yaw Singh MD [address] [place] [address] PCP - General Family Medicine 08/27/20 Madan Roy MD, [address] [facility] [place] [address] Physician Radiation Oncology 04/28/20 Luly Gaffney RN Specialty Fur Tanner Oncology 05/18/20 Richard Jenkins, DO [address] [place] [address] Referring Hematology/Oncology 05/25/20 Ludin, Haroldo S [address] [facility] [address] [place] [address] Cardiology 06/24/20 Sena Seymour, RN Government Affairs Researcher 10/06/20 Physician Relations Specialist Relationship Specialty Start Date End Date Yaw Singh MD [address] [place] [address] PCP - General Family Medicine 08/27/20 Madan Roy MD, [address] [place] [address] Physician Radiation Oncology 04/28/20 Luly Gaffney RN Specialty Fur Tanner Oncology 05/18/20 Richard Jenkins, DO [address] [place] [address] Referring Hematology/Oncology 05/25/20 Ludin, [place] S [address] [facility] [address] [place] [address] Cardiology 06/24/20 Sena Seymour RN Government Affairs Researcher 10/06/20 Physician Relations Specialist Relationship Specialty Start Date End Date Yaw Singh MD [address] [place] [address] PCP - General Family Medicine 08/27/20 Madan Roy MD, MD [address] [place] [address] Physician Radiation Oncology 04/28/20 Luly Gaffney RN Specialty Fur Tanner Oncology 05/18/20 Richard Jenkins, DO [address] [place] [address] Referring Hematology/Oncology 05/25/20 Ludin, [place] S [address] [facility] [address] [place] [address] Cardiology 06/24/20 Sena Seymour, RN Government Affairs Researcher 10/06/20 Physician Relations Specialist Relationship Specialty Start Date End Date Yaw Singh MD [address] [facility] [place] [address] PCP - General Family Medicine 08/27/20 Madan Roy MD, [address] [place] [address] Physician Radiation Oncology 04/28/20 Luly Gaffney RN Specialty Fur Tanner Oncology 05/18/20 Richard Jenkins, [address] [place] [address] Referring Hematology/Oncology 05/25/20 Ludin, Haroldo S [address] [facility] [address] [place], [place] [address] Cardiology 06/24/20 Sena Seymour, RN Government Affairs Researcher 10/06/20 Physician Relations Specialist Relationship Specialty Start Date End Date Yaw Singh MD [address] [place] [address] PCP - General Family Medicine 08/27/20 Madan Roy MD, [address] [facility] [place] [address] Physician Radiation Oncology 04/28/20 Luly Gaffney RN Specialty Fur Tanner Oncology 05/18/20 Richard Jenkins, [address] [place] [address] Referring Hematology/Oncology 05/25/20 Ludin, [place] S [address] [place] [address] Cardiology 06/24/20 Sena Seymour, RN Government Affairs Researcher 10/06/20 Physician Relations Specialist Relationship Specialty Start Date End Date Yaw Singh MD [address] [facility] [place] [address] PCP - General Family Medicine 08/27/20 Madan Roy MD, [address] [place] [facility] [place] [address] Physician Radiation Oncology 04/28/20 Luly Gaffney RN Specialty Fur Tanner Oncology 05/18/20 Richard Jenkins DO [address] [place] [facility] [place] [address] Referring Hematology/Oncology 05/25/20 [place], [place] S [address] [facility] [address] [place] [address] Cardiology 06/24/20 Sena Seymour, RN Government Affairs Researcher 10/06/20 Team Status: Active Member Role Status Dates Dr. Dane Hancock III, MD Family Provider Active Dr. Yaw Singh MD Primary Care Provider Active Team Status: Inactive Member Role Status Dates Dr. Yaw Singh MD Primary Care Provider, [facility] Provider Active Angel Whitney NP, CHIEF ENGINEER RESEARCH-C Attending Provider Active Team Status: Inactive Member Role Status Dates Dr. Yaw Singh MD Primary Care Provider Active Dr. Sue Roberts MD Emergency Provider Active Physician Relations Specialist Relationship Specialty Start Date End Date Yaw Singh MD [address] [facility] [place] [address] PCP - General Family Medicine 08/27/20 Madan Roy MD, [address] [place] [facility] [place] [address] Physician Radiation Oncology 04/28/20 Luly Gaffney RN Specialty Fur Tanner Oncology 05/18/20 Richard Jenkins, DO [address] [place] [address] Referring Hematology/Oncology 05/25/20 Ludin, [place] S [address] [facility] [address] [place] [address] Cardiology 06/24/20 Sena Seymour, RN Government Affairs Researcher 10/06/20 Physician Relations Specialist Relationship Specialty Start Date End Date Yaw Singh MD [address] [facility] [place] [address] PCP - General Family Medicine 08/27/20 Madan Roy MD, [address] [facility] [place] [address] Physician Radiation Oncology 04/28/20 Luly Gaffney RN Specialty Fur Tanner Oncology 05/18/20 Richard Jenkins, DO [address] [facility] [place] [address] Referring Hematology/Oncology 05/25/20 Ludin, [place] S [address] [place] [address] Cardiology 06/24/20 Sena Seymour, RN Government Affairs Researcher 10/06/20 Team Status: Inactive Member Role Status Dates Dr. Yaw Singh MD Primary Care Provider Active Dr. Sue Roberts MD Attending Provider, Emergency Provider Active Team Status: Inactive Member Role Status Dates Dr. Yaw Singh MD Primary Care Provider Active Dr. Van Danielle MD Attending Provider, Referr ing Provider Active Physician Relations Specialist Relationship Specialty Start Date End Date Yaw Singh MD [address] [facility] [place] [address] PCP - General Family Medicine 08/27/20 Madan Roy MD, MD [address] [place] [facility] [place] [address] Physician Radiation Oncology 04/28/20 Luly Gaffney RN Specialty Fur Tanner Oncology 05/18/20 Richard Jenkins, DO [address] [place] [facility] [place] [address] Referring Hematology/Oncology 05/25/20 Ludin, [place] S [address] [facility] [address] [place] [address] Cardiology 06/24/20 Sena Seymour, RN Government Affairs Researcher 10/06/20 Physician Relations Specialist Relationship Specialty Start Date End Date Yaw Singh MD [address] [facility] [place] [address] PCP - General Family Medicine 08/27/20 Madan Roy MD, [address] [place] [facility] [address] Physician Radiation Oncology 04/28/20 Luly Gaffney RN Specialty Fur Tanner Oncology 05/18/20 Richard Jenkins, DO [address] [facility] [place] [place] [address] Referring Hematology/Oncology 05/25/20 Ludin, [place] S [address] [facility] [place] [address] Cardiology 06/24/20 Sena Seymour, RN Government Affairs Researcher 10/06/20 Physician Relations Specialist Relationship Specialty Start Date End Date Yaw Singh MD [address] [facility] [place] [address] PCP - General Family Medicine 08/27/20 Madan Roy MD, [address] [place] [facility] [place] [address] Physician Radiation Oncology 04/28/20 uLly Gaffney RN Specialty Fur Tanner Oncology 05/18/20 Richard Jenkins, DO [address] [place] [address] Referring Hematology/Oncology 05/25/20 [place], [place] S [address] [facility] [address] [place] [address] Cardiology 06/24/20 Sena Seymour, RN Government Affairs Researcher 10/06/20 Physician Relations Specialist Relationship Specialty Start Date End Date Yaw Singh MD [address] [facility] [place] [address] PCP - General Family Medicine 08/27/20 Madan Roy MD, [address] [facility] [place] [address] Physician Radiation Oncology 04/28/20 Luly Gaffney RN Specialty Fur Tanner Oncology 05/18/20 Richard Jenkins, DO [address] [place] [address] Referring Hematology/Oncology 05/25/20 [place], [place] S [address] [place] [place] [address] Cardiology 06/24/20 Sena Seymour RN Government Affairs Researcher 10/06/20 Team Status: Inactive Member Role Status Dates Dr. Yaw Singh MD Primary Care Provider Active Angel Whitney CHIEF ENGINEER RESEARCH, CHIEF ENGINEER RESEARCH-C Attending Provider, Referring Pro vider Active Physician Relations Specialist Relationship Specialty Start Date End Date Yaw Singh MD [address] [facility] [place] [address] PCP - General Family Medicine 08/27/20 Madan Roy MD, MD [address] [facility] [place] [address] Physician Radiation Oncology 04/28/20 Luly Gaffney RN Specialty Fur Tanner Oncology 05/18/20 Richard Jenkins DO [address] [place] [address] Referring Hematology/Oncology 05/25/20 Haroldo Noland [address] [place] [address] Cardiology 06/24/20 Sena Seymour RN Government Affairs Researcher 10/06/20 Physician Relations Specialist Relationship Specialty Start Date End Date Yaw Singh MD [address] [facility] [place] [address] PCP - General Family Medicine 08/27/20 Madan Roy MD, [address] [place] [address] Physician Radiation Oncology 04/28/20 Luly Gaffney RN Specialty Fur Tanner Oncology 05/18/20 Richard Jenkins DO [address] [place] [address] Referring Hematology/Oncology 05/25/20 Haroldo Noland MD [address] [place] [address] Cardiology 06/24/20 Sena Seymour RN Government Affairs Researcher 10/06/20 Physician Relations Specialist Relationship Specialty Start Date End Date Yaw Singh MD [address] [facility] [place] [address] PCP - General Family Medicine 08/27/20 Madan Roy MD, [address] [place] [address] Physician Radiation Oncology 04/28/20 Luly Gaffney RN Specialty Fur Tanner Oncology 05/18/20 Richard Jenkins DO [address] [place] [address] Referring Hematology/Oncology 05/25/20 Haroldo Noland MD [address] [place] [address] Cardiology 06/24/20 Sena Seymour RN Government Affairs Researcher 10/06/20 Physician Relations Specialist Relationship Specialty Start Date End Date Yaw Singh MD [address] [facility] [place] [address] PCP - General Family Medicine 08/27/20 Madan Roy MD, [address] [facility] [place] [address] Physician Radiation Oncology 04/28/20 Luly Gaffney RN Specialty Fur Tanner Oncology 05/18/20 Richard Jenkins DO [address] [place] [address] Referring Hematology/Oncology 05/25/20 Haroldo Noland MD [address] [facility] [address] [place] [address] Cardiology 06/24/20 Sena Seymour RN Government Affairs Researcher 10/06/20 Physician Relations Specialist Relationship Specialty Start Date End Date Yaw Singh MD [address] [facility] [place] [address] PCP - General Family Medicine 08/27/20 Madan Roy MD, MD [address] [place] [address] Physician Radiation Oncology 04/28/20 Luly Gaffney RN Specialty Fur Tanner Oncology 05/18/20 Richard Jenkins DO [address] [place] [address] Referring Hematology/Oncology 05/25/20 Haroldo Noland MD [address] [place] [address] Cardiology 06/24/20 Sena Seymour RN Government Affairs Researcher 10/06/20 Physician Relations Specialist Relationship Specialty Start Date End Date Yaw Singh MD [address] [facility] [place] [address] PCP - General Family Medicine 08/27/20 Madan Roy MD, [address] [place] [address] Physician Radiation Oncology 04/28/20 Luly Gaffney RN Specialty Fur Tanner Oncology 05/18/20 Richard Jenkins DO [address] [facility] [place] [address] Referring Hematology/Oncology 05/25/20 Haroldo Noland MD [address] [place] [address] Cardiology 06/24/20 Sena Seymour RN Government Affairs Researcher 10/06/20 Physician Relations Specialist Relationship Specialty Start Date End Date Yaw Singh MD [address] [facility] [place] [address] PCP - General Family Medicine 08/27/20 Madan Roy MD, [address] [place] [address] Physician Radiation Oncology 04/28/20 Luly Gaffney RN Specialty Fur Tanner Oncology 05/18/20 Richard Jenkins DO [address] [place] [address] Referring Hematology/Oncology 05/25/20 Haroldo Noland MD [address] [place] [address], [place] [address] Cardiology 06/24/20 Sena Seymour RN Government Affairs Researcher 10/06/20 Physician Relations Specialist Relationship Specialty Start Date End Date Yaw Singh MD [address] [facility] [place] [address] PCP - General Family Medicine 08/27/20 Madan Roy MD, [address] [place] [address] Physician Radiation Oncology 04/28/20 Luly Gaffney RN Specialty Fur Tanner Oncology 05/18/20 Richard Jenkins DO [address] [place] [address] Referring Hematology/Oncology 05/25/20 Haroldo Noland MD [address] [place] [address] Cardiology 06/24/20 Sena Seymour, RN Government Affairs Researcher 10/06/20 Physician Relations Specialist Relationship Specialty Start Date End Date Yaw Singh MD [address] [facility] [place] [address] PCP - General Family Medicine 08/27/20 Madan Roy MD, [address] [place] [facility] [place] [address] Physician Radiation Oncology 04/28/20 Luly Gaffney RN Specialty Fur Tanner Oncology 05/18/20 Richard Jenkins DO [address] [place] [facility] [address] Referring Hematology/Oncology 05/25/20 Haroldo Noland MD [address] [place] [address] Cardiology 06/24/20 Sena Seymour RN Government Affairs Researcher 10/06/20 Physician Relations Specialist Relationship Specialty Start Date End Date Yaw Singh MD [address] [facility] [place] [address] PCP - General Family Medicine 08/27/20 Madan Roy MD, [address] [place] [facility] [place] [address] Physician Radiation Oncology 04/28/20 Luly Gaffney RN Specialty Fur Tanner Oncology 05/18/20 Richard Jenkins DO [address] [place] [facility] [address] Referring Hematology/Oncology 05/25/20 Haroldo Noland MD [address] [facility] [address] [place] [address] Cardiology 06/24/20 Sena Seymour, RN Government Affairs Researcher 10/06/20 Physician Relations Specialist Relationship Specialty Start Date End Date Yaw Singh MD [address] [facility] [place] [address] PCP - General Family Medicine 08/27/20 Madan Roy MD, [address] [place] [address] Physician Radiation Oncology 04/28/20 Luly Gaffney RN Specialty Fur Tanner Oncology 05/18/20 Richard Jenkins DO [address] [place] [address] Referring Hematology/Oncology 05/25/20 Haroldo Noland MD [address] [place] [address] Cardiology 06/24/20 Sena Seymour RN Government Affairs Researcher 10/06/20 Physician Relations Specialist Relationship Specialty Start Date End Date Yaw Singh MD [address] [facility] [place] [address] PCP - General Family Medicine 08/27/20 Madan Roy MD [address] [place] [address] Physician Radiation Oncology 04/28/20 Luly Gaffney RN Specialty Fur Tanner Oncology 05/18/20 Richard Jenkins DO [address] [place] [address] Referring Hematology/Oncology 05/25/20 Haroldo Noland MD [address] [facility] [address] [place] [address] Cardiology 06/24/20 Sena Seymour RN Government Affairs Researcher 10/06/20 Physician Relations Specialist Relationship Specialty Start Date End Date Yaw Singh MD [address] [facility] [place] [address] PCP - General Family Medicine 08/27/20 Madan Roy MD [address] [place] [address] Physician Radiation Oncology 04/28/20 Luly Gaffney RN Specialty Fur Tanner Oncology 05/18/20 Richard Jenkins DO [address] [place] [address] Referring Hematology/Oncology 05/25/20 Haroldo Noland MD [address] [facility] [address] [place] [address] Cardiology 06/24/20 Sena Seymour RN Government Affairs Researcher 10/06/20 Physician Relations Specialist Relationship Specialty Start Date End Date Yaw Singh MD [address] [place] [address] PCP - General Family Medicine 08/27/20 Madan Roy MD [address] [place] [address] Physician Radiation Oncology 04/28/20 Luly Gaffney RN Specialty Fur Tanner Oncology 05/18/20 Richard Jenkins DO [address] [place] [address] Referring Hematology/Oncology 05/25/20 Haroldo Noland MD [address] [place] [address] Cardiology 06/24/20 Sena Seymour, RN Government Affairs Researcher 10/06/20 Physician Relations Specialist Relationship Specialty Start Date End Date Yaw Singh MD [address] [facility] [place] [address] PCP - General Family Medicine 08/27/20 Madan Roy MD [address] [place] [address] Physician Radiation Oncology 04/28/20 Luly Gaffney RN Specialty Fur Tanner Oncology 05/18/20 Richard Jenkins DO [address] [place] [address] Referring Hematology/Oncology 05/25/20 Haroldo Noland MD [address] [place] [address] Cardiology 06/24/20 Sena Seymour, RN Government Affairs Researcher 10/06/20 Physician Relations Specialist Relationship Specialty Start Date End Date Yaw Singh MD [address] [facility] [place] [address] PCP - General Family Medicine 08/27/20 Madan Roy MD [address] [place] [address] Physician Radiation Oncology 04/28/20 Luly Gaffney RN Specialty Fur Tanner Oncology 05/18/20 Richard Jenkins DO [address] [place] [address] Referring Hematology/Oncology 05/25/20 Haroldo Noland MD [address] [place] [address] Cardiology 06/24/20 Sena Seymour RN Government Affairs Researcher 10/06/20 Physician Relations Specialist Relationship Specialty Start Date End Date Yaw Singh MD [address] [facility] [place] [address] PCP - General Family Medicine 08/27/20 Madan Roy MD [address] [place] [address] Physician Radiation Oncology 04/28/20 Luly Gaffney RN Specialty Fur Tanner Oncology 05/18/20 Richard Jenkins DO [address] [facility] [place] [address] Referring Hematology/Oncology 05/25/20 Haroldo Noland MD [address] [place] [address] Cardiology 06/24/20 Sena Seymour RN Government Affairs Researcher 10/06/20 Physician Relations Specialist Relationship Specialty Start Date End Date Yaw Singh MD [address] [facility] [place] [address] PCP - General Family Medicine 08/27/20 Madan Roy MD [address] [place] [address] Physician Radiation Oncology 04/28/20 Luly Gaffney RN Specialty Fur Tanner Oncology 05/18/20 Richard Jenkins DO [address] [place] [address] Referring Hematology/Oncology 05/25/20 Haroldo Noland MD [address] [place] [address] Cardiology 06/24/20 Sena Seymour RN Government Affairs Researcher 10/06/20 Physician Relations Specialist Relationship Specialty Start Date End Date Yaw Singh MD [address] [facility] [place] [address] PCP - General Family Medicine 08/27/20 Madan Roy MD [address] [place] [address] Physician Radiation Oncology 04/28/20 Luly Gaffney RN Specialty Fur Tanner Oncology 05/18/20 Richard Jenkins DO [address] [place] [address] Referring Hematology/Oncology 05/25/20 Haroldo Noland MD [address] [place] [address] Cardiology 06/24/20 Sena Seymour RN Government Affairs Researcher 10/06/20 Physician Relations Specialist Relationship Specialty Start Date End Date Yaw Singh MD [address] [place] [address] PCP - General Family Medicine 08/27/20 Madan Roy MD [address] [place] [address] Physician Radiation Oncology 04/28/20 Luly Gaffney RN Specialty Fur Tanner Oncology 05/18/20 Richard Jenkins DO [address] [place] [address] Referring Hematology/Oncology 05/25/20 Haroldo Noland MD [address] [place] [address] Cardiology 06/24/20 Sena Seymour RN Government Affairs Researcher 10/06/20 Physician Relations Specialist Relationship Specialty Start Date End Date Yaw Singh MD [address] [place] [address] PCP - General Family Medicine 08/27/20 Madan Roy MD [address] [place] [address] Physician Radiation Oncology 04/28/20 Luly Gaffney RN Specialty Fur Tanner Oncology 05/18/20 Richard Jenkins DO [address] [place] [address] Referring Hematology/Oncology 05/25/20 Haroldo Noland MD [address] [place] [address] Cardiology 06/24/20 Sena Seymour RN Government Affairs Researcher 10/06/20 Physician Relations Specialist Relationship Specialty Start Date End Date Yaw Singh MD [address] [place] [address] PCP - General Family Medicine 08/27/20 Madan Roy MD [address] [place] [address] Physician Radiation Oncology 04/28/20 Luly Gaffney RN Specialty Fur Tanner Oncology 05/18/20 Richard Jenkins DO [address] [place] [address] Referring Hematology/Oncology 05/25/20 Haroldo Noland MD [address] [place] [address], [place] [address] Cardiology 06/24/20 Sena Seymour, MICHELE Government Affairs Researcher 10/06/20 Physician Relations Specialist Relationship Specialty Start Date End Date Yaw Singh MD [address] [place] [address] PCP - General Family Medicine 08/27/20 Madan Roy MD [address] [place] [address] Physician Radiation Oncology 04/28/20 Luly Gaffney RN Specialty Fur Tanner Oncology 05/18/20 Richard Jenkins DO [address] [place] [address] Referring Hematology/Oncology 05/25/20 Haroldo Noland MD [address] [place] [address] Cardiology 06/24/20 Sena Seymour RN Government Affairs Researcher 10/06/20 Physician Relations Specialist Relationship Specialty Start Date End Date Yaw Singh MD [address] [place] [address] PCP - General Family Medicine 08/27/20 Madan Roy MD [address] [place] [address] Physician Radiation Oncology 04/28/20 Luly Gaffney RN Specialty Fur Tanner Oncology 05/18/20 Richard Jenkins DO [address] [place] [address] Referring Hematology/Oncology 05/25/20 Haroldo Noland MD [address] [address] Cardiology 06/24/20 Sena Seymour RN Government Affairs Researcher 10/06/20 Physician Relations Specialist Relationship Specialty Start Date End Date Yaw Singh MD [address] [place] [address] PCP - General Family Medicine 08/27/20 Madan Roy MD [address] [place] [facility] [place] [address] Physician Radiation Oncology 04/28/20 Luly Gaffney RN Specialty Fur Tanner Oncology 05/18/20 Richard Jenkins DO [address] [place] [address] Referring Hematology/Oncology 05/25/20 Haroldo Noland MD [address] [place] [address] Cardiology 06/24/20 Sena Seymour, MICHELE Government Affairs Researcher 10/06/20 Physician Relations Specialist Relationship Specialty Start Date End Date Yaw Singh MD [address] [facility] [place] [address] PCP - General Family Medicine 08/27/20 Madan Roy MD [address] [place] [facility] [place] [address] Physician Radiation Oncology 04/28/20 Luly Gaffney RN Specialty Fur Tanner Oncology 05/18/20 Richard Jenkins DO [address] [facility] [place] [address] Referring Hematology/Oncology 05/25/20 Haroldo Noland MD [address] [place] [address] Cardiology 06/24/20 Sena Seymour RN Government Affairs Researcher 10/06/20 Physician Relations Specialist Relationship Specialty Start Date End Date Yaw Singh MD [address] [facility] [place] [address] PCP - General Family Medicine 08/27/20 Madan Roy MD [address] [facility] [place] [address] Physician Radiation Oncology 04/28/20 Luly Gaffney RN Specialty Fur Tanner Oncology 05/18/20 Richard Jenkins DO [address] [facility] [place] [address] Referring Hematology/Oncology 05/25/20 Haroldo Noland MD [address] [place] [address] Cardiology 06/24/20 Sena Seymour RN Government Affairs Researcher 10/06/20 Physician Relations Specialist Relationship Specialty Start Date End Date Yaw Singh MD [address] [place] [address] PCP - General Family Medicine 08/27/20 Madan Roy MD [address] [facility] [place] [address] Physician Radiation Oncology 04/28/20 Luly Gaffney RN Specialty Fur Tanner Oncology 05/18/20 Richard Jenkins DO [address] [facility] [place] [address] Referring Hematology/Oncology 05/25/20 Haroldo Noland MD [address] [place] [address] Cardiology 06/24/20 Sena Seymour RN Government Affairs Researcher 10/06/20 Physician Relations Specialist Relationship Specialty Start Date End Date Yaw Singh MD [address] [place] [address] PCP - General Family Medicine 08/27/20 Madan Roy MD [address] [facility] [place] [address] Physician Radiation Oncology 04/28/20 Luly Gaffney RN Specialty Fur Tanner Oncology 05/18/20 Richard Jenkins DO [address] [place] [address] Referring Hematology/Oncology 05/25/20 Haroldo Noland MD [address] [place] [address] Cardiology 06/24/20 Sena Seymour RN Government Affairs Researcher 10/06/20 Physician Relations Specialist Relationship Specialty Start Date End Date Yaw Singh MD [address] [place] [address] PCP - General Family Medicine 08/27/20 Madan Roy MD [address] [place] [address] Physician Radiation Oncology 04/28/20 Luly Gaffney RN Specialty Fur Tanner Oncology 05/18/20 Richard Jenkins DO [address] [place] [address] Referring Hematology/Oncology 05/25/20 Haroldo Noland MD [address] [facility] [address] [place] [address] Cardiology 06/24/20 Sena Seymour RN Government Affairs Researcher 10/06/20 Physician Relations Specialist Relationship Specialty Start Date End Date Yaw Singh MD [address] [place] [address] PCP - General Family Medicine 08/27/20 Madan Roy MD [address] [place] [address] Physician Radiation Oncology 04/28/20 Luly Gaffney RN Specialty Fur Tanner Oncology 05/18/20 Richard Jenkins DO [address] [place] [address] Referring Hematology/Oncology 05/25/20 Haroldo Noland MD [address] [place] [address] Cardiology 06/24/20 Sena Seymour, RN Government Affairs Researcher 10/06/20 Physician Relations Specialist Relationship Specialty Start Date End Date Yaw Singh MD [address] [place] [address] PCP - General Family Medicine 08/27/20 Madan Roy MD [address] [place] [address] Physician Radiation Oncology 04/28/20 Luly Gaffney RN Specialty Fur Tanner Oncology 05/18/20 Richard Jenkins DO [address] [place] [address] Referring Hematology/Oncology 05/25/20 Haroldo Noland MD [address] [place] [address], [place] [address] Cardiology 06/24/20 Sena Seymour, RN Government Affairs Researcher 10/06/20 Physician Relations Specialist Relationship Specialty Start Date End Date Yaw Singh MD [address] [place] [address] PCP - General Family Medicine 08/27/20 Madan Roy MD [address] [place] [address] Physician Radiation Oncology 04/28/20 Luly Gaffney RN Specialty Fur Tanner Oncology 05/18/20 Richard Jenkins DO [address] [place] [address] Referring Hematology/Oncology 05/25/20 Haroldo Noland MD [address] [place] [address] Cardiology 06/24/20 Sena Seymour, RN Government Affairs Researcher 10/06/20 Physician Relations Specialist Relationship Specialty Start Date End Date Yaw Singh MD [address] [facility] [place] [address] PCP - General Family Medicine 08/27/20 Madan Roy MD [address] [place] [address] Physician Radiation Oncology 04/28/20 Luly Gaffney RN Specialty Fur Tanner Oncology 05/18/20 Richard Jenkins DO [address] [place] [address] Referring Hematology/Oncology 05/25/20 Haroldo Noland MD [address] [place] [address] Cardiology 06/24/20 eSna Seymour RN Government Affairs Researcher 10/06/20 Physician Relations Specialist Relationship Specialty Start Date End Date Yaw Singh MD [address] [facility] [place] [address] PCP - General Family Medicine 08/27/20 Madan Roy MD [address] [place] [address] Physician Radiation Oncology 04/28/20 Luly Gafnfey RN Specialty Fur Tanner Oncology 05/18/20 Richard Jenkins DO [address] [place] [address] Referring Hematology/Oncology 05/25/20 Haroldo Noland MD [address] [place] [address] Cardiology 06/24/20 Sena Seymour RN Government Affairs Researcher 10/06/20 Physician Relations Specialist Relationship Specialty Start Date End Date Yaw Singh MD [address] [facility] [place] [address] PCP - General Family Medicine 08/27/20 Madan Roy MD [address] [place] [address] Physician Radiation Oncology 04/28/20 Luly Gaffney RN Specialty Fur Tanner Oncology 05/18/20 Richard Jenkins DO [address] [place] [address] Referring Hematology/Oncology 05/25/20 Haroldo Noland MD [address] [place] [address] Cardiology 06/24/20 Sena Seymour RN Government Affairs Researcher 10/06/20 Physician Relations Specialist Relationship Specialty Start Date End Date Yaw Singh MD [address] [place] [address] PCP - General Family Medicine 08/27/20 Madan Roy MD [address] [place] [address] Physician Radiation Oncology 04/28/20 Luly Gaffney RN Specialty Fur Tanner Oncology 05/18/20 Richard Jenkins DO [address] [place] [address] Referring Hematology/Oncology 05/25/20 Haroldo Noland MD [address] [place] [address] Cardiology 06/24/20 Sena Seymour RN Government Affairs Researcher 10/06/20 Physician Relations Specialist Relationship Specialty Start Date End Date Yaw Singh MD [address] [place] [address] PCP - General Family Medicine 08/27/20 Madan Roy MD [address] [place] [address] Physician Radiation Oncology 04/28/20 Luly Gaffney RN Specialty Fur Tanner Oncology 05/18/20 Richard Jenkins DO [address] [place] [address] Referring Hematology/Oncology 05/25/20 Haroldo Noland MD [address] [place] [address] Cardiology 06/24/20 Sena Seymour RN Government Affairs Researcher 10/06/20 Physician Relations Specialist Relationship Specialty Start Date End Date Yaw Singh MD [address] [place] [address] PCP - General Family Medicine 08/27/20 Madan Roy MD [address] [place] [address] Physician Radiation Oncology 04/28/20 Luly Gaffney RN Specialty Fur Tanner Oncology 05/18/20 Richard Jenkins DO [address] [place] [address] Referring Hematology/Oncology 05/25/20 Haroldo Noland MD [address] [place] [address] Cardiology 06/24/20 Sena Seymour, MICHELE Government Affairs Researcher 10/06/20 Physician Relations Specialist Relationship Specialty Start Date End Date Yaw Singh MD [address] [place] [address] PCP - General Family Medicine 08/27/20 Madan Roy MD [address] [place] [address] Physician Radiation Oncology 04/28/20 Luly Gaffney RN Specialty Fur Tanner Oncology 05/18/20 Richard Jenkins DO [address] [place] [address] Referring Hematology/Oncology 05/25/20 Haroldo Noland MD [address] [place] [address] Cardiology 06/24/20 Sena Seymour RN Government Affairs Researcher 10/06/20 Physician Relations Specialist Relationship Specialty Start Date End Date Yaw Singh MD [address] [facility] [place] [address] PCP - General Family Medicine 08/27/20 Madan Roy MD [address] [place] [facility] [place] [address] Physician Radiation Oncology 04/28/20 Luly Gaffney RN Specialty Fur Tanner Oncology 05/18/20 Richard Jenkins DO [address] [place] [facility] [place] [address] Referring Hematology/Oncology 05/25/20 Haroldo Noland MD [address] [place] [address] Cardiology 06/24/20 Sena Seymour RN Government Affairs Researcher 10/06/20 Physician Relations Specialist Relationship Specialty Start Date End Date Yaw Singh MD [address] [facility] [place] [address] PCP - General Family Medicine 08/27/20 Madan Roy MD [address] [place] [facility] [place] [address] Physician Radiation Oncology 04/28/20 Luly Gaffney RN Specialty Fur Tanner Oncology 05/18/20 Richard Jenkins DO [address] [facility] [place] [address] Referring Hematology/Oncology 05/25/20 Haroldo Noland MD [address] YOUClaudia [facility] [address] [place] [address] Cardiology 06/24/20 Sena Seymour, MICHELE Government Affairs Researcher 10/06/20 Physician Relations Specialist Relationship Specialty Start Date End Date Yaw Singh MD [address] [facility] [place] [address] PCP - General Family Medicine 08/27/20 Madan Roy MD [address] [place] [address] Physician Radiation Oncology 04/28/20 Luly Gaffney RN Specialty Fur Tanner Oncology 05/18/20 Richard Jenkins DO [address] [facility] [place] [address] Referring Hematology/Oncology 05/25/20 Haroldo Noland MD [address] [facility] [address] [place] [address] Cardiology 06/24/20 Sena Seymour RN Government Affairs Researcher 10/06/20 Physician Relations Specialist Relationship Specialty Start Date End Date Yaw Singh MD [address] [facility] [place] [address] PCP - General Family Medicine 08/27/20 Madan Roy MD [address] [place] [address] Physician Radiation Oncology 04/28/20 Luly Gaffney RN Specialty Fur Tanner Oncology 05/18/20 Richard Jenkins DO [address] M[address] [place] [address] Referring Hematology/Oncology 05/25/20 Haroldo Noland MD [address] AVCl[address]ia [facility] [address] [place] [address] Cardiology 06/24/20 Sena Seymour, RN Government Affairs Researcher 10/06/20 Physician Relations Specialist Relationship Specialty Start Date End Date Yaw Snigh MD [address] [place] [address] PCP - General Family Medicine 08/27/20 Madan Roy MD [address] [place] [address] Physician Radiation Oncology 04/28/20 Luly Gaffney RN Specialty Fur Tanner Oncology 05/18/20 Richard Jenkins DO [address] [place] [address] Referring Hematology/Oncology 05/25/20 Haroldo Noland MD [address] [facility] [address] [place] [address] Cardiology 06/24/20 Sena Seymour, RN Government Affairs Researcher 10/06/20 Bud Beck DO [address] [facility] [address] [place] [address] Gastroenterology 01/15/24 Physician Relations Specialist Relationship Specialty Start Date End Date Yaw Singh MD [address] [place] [address] PCP - General Family Medicine 08/27/20 Madan Roy MD [address] [place] [address] Physician Radiation Oncology 04/28/20 Luly Gaffney RN Specialty Fur Tanner Oncology 05/18/20 Richard Jenkins DO [address] [place] [address] Referring Hematology/Oncology 05/25/20 Haroldo Noland MD [address] [place] [address] Cardiology 06/24/20 Sena Seymour RN Government Affairs Researcher 10/06/20 Bud Beck DO [address] [place] [address] Gastroenterology 01/15/24 Physician Relations Specialist Relationship Specialty Start Date End Date Yaw Singh MD [address] [place] [address] PCP - General Family Medicine 08/27/20 Madan Roy MD [address] [place] [address] Physician Radiation Oncology 04/28/20 Luly Gaffney RN Specialty Fur Tanner Oncology 05/18/20 Richard Jenkins DO [address] [place] [address] Referring Hematology/Oncology 05/25/20 Haroldo Noland MD [address] [place] [address] Cardiology 06/24/20 Sena Seymour RN Government Affairs Researcher 10/06/20 Bud Beck DO [address] [place] [address] Gastroenterology 01/15/24 Physician Relations Specialist Relationship Specialty Start Date End Date Yaw Singh MD [address] [place] [address] PCP - General Family Medicine 08/27/20 Madan Roy MD [address] [place] [address] Physician Radiation Oncology 04/28/20 Luly Gaffney RN Specialty Fur Tanner Oncology 05/18/20 Richard Jenkins DO [address] [place] [address] Referring Hematology/Oncology 05/25/20 Haroldo Noland MD [address] [place] [address] Cardiology 06/24/20 Sena Seymour RN Government Affairs Researcher 10/06/20 Bud Beck DO [address] [place] [address] Gastroenterology 01/15/24 Physician Relations Specialist Relationship Specialty Start Date End Date Yaw Singh MD [address] [place] [address] PCP - General Family Medicine 08/27/20 Madan Roy MD [address] [place] [address] Physician Radiation Oncology 04/28/20 Luly Gaffney RN Specialty Fur Tanner Oncology 05/18/20 Richard Jenkins DO [address] [place] [address] Referring Hematology/Oncology 05/25/20 Haroldo Noland MD [address] [place] [address] Cardiology 06/24/20 Sena Seymour RN Government Affairs Researcher 10/06/20 Bud Beck DO [address] AVCl[address] [facility] [address] [place], [place] [address] Gastroenterology 01/15/24 Physician Relations Specialist Relationship Specialty Start Date End Date Yaw Singh MD [address] [place] [address] PCP - General Family Medicine 08/27/20 Madan Roy MD [address] [place] [address] Physician Radiation Oncology 04/28/20 Luly Gaffney RN Specialty Fur Tanner Oncology 05/18/20 Richard Jenkins DO [address] [place] [address] Referring Hematology/Oncology 05/25/20 Haroldo Noland MD [address] [place] [address] Cardiology 06/24/20 Sena Seymour RN Government Affairs Researcher 10/06/20 Bud Beck DO [address] [facility] [address] [place], [place] [address]- Gastroenterology 01/15/24 Helen Gibson 01/29/24 Physician Relations Specialist Relationship Specialty Start Date End Date Yaw Singh MD [address] [place] [address] PCP - General Family Medicine 08/27/20 Madan Roy MD [address] [place] [address] Physician Radiation Oncology 04/28/20 Luly Gaffney RN Specialty Fur Tanner Oncology 05/18/20 Richard Jenkins DO [address] [place] [address] Referring Hematology/Oncology 05/25/20 Haroldo Noland MD [address] [place] [address] Cardiology 06/24/20 Sena Seymour, MICHELE Government Affairs Researcher 10/06/20 Bud Beck DO [address] [place] [address] Gastroenterology 01/15/24 Helen Gibson 01/29/24 Physician Relations Specialist Relationship Specialty Start Date End Date Yaw Singh MD [address] [place] [address] PCP - General Family Medicine 08/27/20 Madan Roy MD [address] [place] [address] Physician Radiation Oncology 04/28/20 Luly Gaffney RN Specialty Fur Tanner Oncology 05/18/20 Richard Jenkins DO [address] [place] [address] Referring Hematology/Oncology 05/25/20 Haroldo Noland MD [address] [place] [address] Cardiology 06/24/20 Sena Seymour RN Government Affairs Researcher 10/06/20 Bud Beck DO [address] [place], [place] [address] Gastroenterology 01/15/24 Helen Gibson 01/29/24 Physician Relations Specialist Relationship Specialty Start Date End Date Yaw Singh MD [address] [place] [address] PCP - General Family Medicine 08/27/20 Madan Roy MD [address] [place] [address] Physician Radiation Oncology 04/28/20 Luly Gaffney RN Specialty Fur Tanner Oncology 05/18/20 Richard Jenkins DO [address] [place] [address] Referring Hematology/Oncology 05/25/20 Haroldo Noland MD [address] [place] [address] Cardiology 06/24/20 Sena Seymour RN Government Affairs Researcher 10/06/20 Bud Beck DO [address] [place] [address] Gastroenterology 01/15/24 Helen Gibson 01/29/24 Physician Relations Specialist Relationship Specialty Start Date End Date Yaw Singh MD [address] [facility] [place] [address] PCP - General Family Medicine 08/27/20 Madan Roy MD [address] [place] [facility] [place] [address] Physician Radiation Oncology 04/28/20 Luyl Gaffney RN Specialty Fur Tanner Oncology 05/18/20 Richard Jenkins DO [address] [place] [address] Referring Hematology/Oncology 05/25/20 Haroldo Noland MD [address] [facility] [address] [place] [address] Cardiology 06/24/20 Sena Seymour, MICHELE Government Affairs Researcher 10/06/20 Bud Beck DO [address] [facility] [address] [place] [address] Gastroenterology 01/15/24 Helen Gibson 01/29/24 Maegan Lange, MICHELE [address] [place] [id number] Primary Care Human Capital Manager 02/18/24 Physician Relations Specialist Relationship Specialty Start Date End Date Yaw Singh MD [address] [place] [address] PCP - General Family Medicine 08/27/20 Madan Roy MD [address] [place] [address] Physician Radiation Oncology 04/28/20 Luly Gaffney, RN Specialty Fur Tanner Oncology 05/18/20 Richard Jenkins DO [address] [place] [address] Referring Hematology/Oncology 05/25/20 Harolod Noland MD [address] [facility] [address] [place] [address] Cardiology 06/24/20 Sena Seymour, MICHELE Government Affairs Researcher 10/06/20 Bud Beck DO [address] [facility] [address] [place], [place] 437171 Gastroenterology 01/15/24 Star Gibsona 01/29/24 Maegan Lange, RN [address] [place] [address] Primary Care Human Capital Manager 02/18/24 03/11/24 Physician Relations Specialist Relationship Specialty Start Date End Date Yaw Singh MD [address] [place], [place] 855231 PCP - General Family Medicine 08/27/20 Madan Roy MD [address] [facility] [place] [address] Physician Radiation Oncology 04/28/20 Luly Gaffney RN Specialty Fur Tanner Oncology 05/18/20 Richard Jenkins DO [address] [place] [address] Referring Hematology/Oncology 05/25/20 Haroldo Noland MD [address] [address] Cardiology 06/24/20 Sena Seymour RN Government Affairs Researcher 10/06/20 Bud Beck DO [address] [facility] [address] [place], [place] [address] Gastroenterology 01/15/24 Paige Helen 01/29/24 Danielle Kelly APRN.LIFE MANAGEMENT TEACHER [address] [place], [place] 833731 Loft Worker Family Medicine 03/15/24 Usha Mcgovern PA-C [address] [place], [place] [id number] Loft Worker Family Medicine 03/15/24 Physician Relations Specialist Relationship Specialty Start Date End Date Yaw Singh MD [address] [place] [address] PCP - General Family Medicine 08/27/20 Madan Roy MD [address] [place], [place] 09[address]11 Physician Radiation Oncology 04/28/20 Luly Gaffney RN Specialty Fur Tanner Oncology 05/18/20 Richard Jenkins DO [address] [place] [place], [place] 156381 Referring Hematology/Oncology 05/25/20 Haroldo Noland MD [address] [address] Cardiology 06/24/20 Sena Seymour RN Government Affairs Researcher 10/06/20 Bud Beck DO [address] [place], [place] [address] Gastroenterology 01/15/24 Turkbijana, Helen 01/29/24 Danielle Kelly APRN.LIFE MANAGEMENT TEACHER [address] [facility], [place] [id number] Loft Worker Family Medicine 03/15/24 Usha Mcgovern PA-C [address] [facility] [place], [place] [id number] Loft Worker Family [facility] 03/15/24 Physician Relations Specialist Relationship Specialty Start Date End Date Yaw Singh MD [address] [facility] [place], [place] [id number] PCP - General Family Medicine 08/27/20 Madan Roy MD [address] [place], [place] 753061 Physician Radiation Oncology 04/28/20 Luly Gaffney RN Specialty Fur Tanner Oncology 05/18/20 Richard Jenkins DO [address] [place], [place] 10340[address] Referring Hematology/Oncology 05/25/20 Haroldo Noland MD [address] [place], [place] [address]6831 Cardiology 06/24/20 Sena Seymour, MICHELE Government Affairs Researcher 10/06/20 Bud Beck DO [address] [place], [place] [id number] Gastroenterology 01/15/24 TurkHelen ann 01/29/24 Danielle Kelly APRN.LIFE MANAGEMENT TEACHER [address] [place], [place] 914931 [facility] Family [facility] 03/15/24 Usha Mcgovern PA-C [address] [place], [place] [phone] [facility] 03/15/24 Physician Relations Specialist Relationship Specialty Start Date End Date Yaw Singh MD [address] [place], [place] [id number] PCP - General Family Medicine 08/27/20 Madan Roy MD [address] [place], [place] 15878691 Physician Radiation Oncology 04/28/20 Luly Gaffney RN Specialty Fur Tanner Oncology 05/18/20 Richard Jenkins DO [address] [place], [place] 01957691 Referring Hematology/Oncology 05/25/20 Haroldo Noland MD [address] [facility] [address] [place], [place] 759421 Cardiology 06/24/20 Sena Seymour, MICHELE Government Affairs Researcher 10/06/20 Bud Beck DO [address] [facility] [address] [place], [place] 438151 Gastroenterology 01/15/24 Helen Gibson 01/29/24 Danielle Kelly APRN.LIFE MANAGEMENT TEACHER [address] [place], [place] [phone] [facility] 03/15/24 Usha Mcgovern PA-C [address] [place], [place] 162341 Loft Worker [facility] 03/15/24 Physician Relations Specialist Relationship Specialty Start Date End Date Yaw Singh MD [address] [place], [place] 002251 PCP - General Family Medicine 08/27/20 Madan Roy MD [address] [place], [place] 58858691 Physician Radiation Oncology 04/28/20 Luly Gaffney RN Specialty Fur Tanner Oncology 05/18/20 Richard Jenkins DO [address] [place], [place] [phone] Referring Hematology/Oncology 05/25/20 Haroldo Noland MD [address] [facility] [address] [place] [address] Cardiology 06/24/20 Sena Seymour, RN Government Affairs Researcher 10/06/20 Bud Beck DO 1761 [facility] [address] [place], [place] 445671 Gastroenterology 01/15/24 Jamia, Helen 01/29/24 Danielle Kelly APRN.LIFE MANAGEMENT TEACHER [address] [place], [place] [phone] [facility] 03/15/24 Usha Mcgovern PA-C [address] [place], [place] [phone] Loft Worker Family Medicine 03/15/24 Physician Relations Specialist Relationship Specialty Start Date End Date Yaw Singh MD [address] [place], [place] 992371 PCP - General Family Medicine 08/27/20 Madan Roy MD [address] [place] [address] Physician Radiation Oncology 04/28/20 Luly Gaffney RN Specialty Fur Tanner Oncology 05/18/20 Richard Jenkins DO [address] [place] [address] Referring Hematology/Oncology 05/25/20 Haroldo Noland MD [address] [facility] [address] [place] [address] Cardiology 06/24/20 Sena Seymour, MICHELE Government Affairs Researcher 10/06/20 Bud Beck DO [address] [facility] [address] [place] [address] Gastroenterology 01/15/24 Helen Gibson 01/29/24 Danielle Kelly, ADALGISA.LIFE MANAGEMENT TEACHER [address] [place], [place] 13[address]61 Loft Worker Family Medicine 03/15/24 Usha Mcgovern PA-C [address] [place], [place] 285471 Loft Worker Family Medicine 03/15/24 Physician Relations Specialist Relationship Specialty Start Date End Date Yaw Singh MD [address] [place], [place] 855911 PCP - General Family Medicine 08/27/20 Madan Roy MD [address] [place], [place] 777[address] Physician Radiation Oncology 04/28/20 Luly Gaffney RN Specialty Fur Tanner Oncology 05/18/20 Richard Jenkins DO [address] [place] [address] Referring Hematology/Oncology 05/25/20 Haroldo Noland MD [address] [facility] [address] [place], [place] [address]01 Cardiology 06/24/20 Sena Seymour, MICHELE Government Affairs Researcher 10/06/20 Bud Beck DO [address] [facility] [address] [place], [place] [address] Gastroenterology 01/15/24 Star Gibsona 01/29/24 Danielle Kelly APRN.[facility] [address] [place], [place] [phone] Loft Worker Family Medicine 03/15/24 Usha Mcgovern PA-C [address] [place], [place] 979291 Loft Worker Family Medicine 03/15/24 Physician Relations Specialist Relationship Specialty Start Date End Date Yaw Singh MD [address] [place], [place] [id number] PCP - General Family Medicine 08/27/20 Madan Roy MD [address] [place] [address] Physician Radiation Oncology 04/28/20 Luly Gaffney, RN Specialty Fur Tanner Oncology 05/18/20 Richard Jenkins DO [address] [place] [address] Referring Hematology/Oncology 05/25/20 Haroldo Noland MD [address]61 [facility] [address] [place] [address] Cardiology 06/24/20 Sena Seymour, MICHELE Government Affairs Researcher 10/06/20 Bud Beck DO [address]61 [facility] [address] [place] [address] Gastroenterology 01/15/24 Helen Gibson 01/29/24 Danielle Kelly, ADALGISA.[facility] [address] [place] [address] Loft Worker Family Medicine 03/15/24 Usha Mcgovern PA-C [address] [place] [address] Loft Worker Family Medicine 03/15/24 Helen Blair MD [address] [address] Pulmonary and Critical Care Medicine 05/08/24 Physician Relations Specialist Relationship Specialty Start Date End Date Yaw Singh MD [address] [place] [address] PCP - General Family Medicine 08/27/20 Madan Roy MD [address] [place] [address] Physician Radiation Oncology 04/28/20 Luly Gaffney, MICHELE Specialty Fur Tanner Oncology 05/18/20 Richard Jenkins DO [address] [place] [address] Referring Hematology/Oncology 05/25/20 Haroldo Noland MD [address] [place] [address] Cardiology 06/24/20 Sena Seymour, MICHELE Government Affairs Researcher 10/06/20 Bud Beck DO [address] [facility] [address] [place], [place] [address] Gastroenterology 01/15/24 Helen Gibson 01/29/24 Danielle Kelly, ADALGISA.LIFE MANAGEMENT TEACHER [address] [place], [place] 321611 Loft Worker Family Medicine 03/15/24 Usha Mcgovern PA-C [address] [place], [place] 758891 Loft Worker Family Medicine 03/15/24 Helen Blair MD [address] [address] Pulmonary and Critical Care Medicine 05/08/24 Physician Relations Specialist Relationship Specialty Start Date End Date Yaw Singh MD [address] [place] [address] PCP - General Family Medicine 08/27/20 Madan Roy MD [address] [place] [address] Physician Radiation Oncology 04/28/20 Luly Gaffney, RN Specialty Fur Tanner Oncology 05/18/20 Richard Jenkins DO [address] [place] [address] Referring Hematology/Oncology 05/25/20 Haroldo Noland MD [address] [place] [address] Cardiology 06/24/20 Sena Seymour, MICHELE Government Affairs Researcher 10/06/20 Bud Beck DO [address] [facility] [address] [place], [place] [address] Gastroenterology 01/15/24 Helen Gibson 01/29/24 Danielle Kelly APRN.LIFE MANAGEMENT TEACHER [address] [place], [place] 560871 Loft Worker Family Medicine 03/15/24 Usha Mcgovern PA-C [address] [place], [place] 664691 Loft Worker Family Medicine 03/15/24 Helen Blair MD [address] [address] Pulmonary and Critical Care Medicine 05/08/24 Physician Relations Specialist Relationship Specialty Start Date End Date Yaw Singh MD [address] [place], [place] 232701 PCP - General Family Medicine 08/27/20 Madan Roy MD [address] [place] [address] Physician Radiation Oncology 04/28/20 Luly Gaffney, RN Specialty Fur Tanner Oncology 05/18/20 Richard Jenkins DO [address] [place] [address] Referring Hematology/Oncology 05/25/20 Haroldo Noland MD [address] [place] [address] Cardiology 06/24/20 Sena Seymour, MICHELE Government Affairs Researcher 10/06/20 Bud Beck DO [address] [facility] [address] [place], [place] [address] Gastroenterology 01/15/24 Helen Gibson 01/29/24 Danielle Kelly, ADALGISA.[facility] [address] [place], [place] 62[address]71 Loft Worker Family [facility] 03/15/24 Usha Mcgovern PA-C [address] [place], [place] 734191 Loft Worker Family Medicine 03/15/24 Helen Blair MD [address] [id number] Pulmonary and Critical Care Medicine 05/08/24 Physician Relations Specialist Relationship Specialty Start Date End Date Yaw Singh MD [address] [place] [address] PCP - General Family Medicine 08/27/20 Madan Roy MD [address] [place] [facility] [place] [address] Physician Radiation Oncology 04/28/20 Luly Gaffney, MICHELE Specialty Fur Tanner Oncology 05/18/20 Richard Jenkins DO [address] [place] [address] Referring Hematology/Oncology 05/25/20 Haroldo Noland MD [address] [place] [address] [place], [place] 158591 Cardiology 06/24/20 Sena Seymour, RN Government Affairs Researcher 10/06/20 Bud Beck DO [address] [facility] [address] [place], [place] [address] Gastroenterology 01/15/24 Helen Gibson 01/29/24 Danielle Kelly APRN.[facility] [address] [place] [address] Loft Worker Family [facility] 03/15/24 Usha Mcgovern PA-C [address] [place] [address] Loft Worker Family Medicine 03/15/24 Helen Blair MD [address] [phone] Pulmonary and Critical Care Medicine 05/08/24 Physician Relations Specialist Relationship Specialty Start Date End Date Yaw Singh MD [address] [place] [address] PCP - General Family Medicine 08/27/20 Madan Roy MD [address] [place], [place] [address] Physician Radiation Oncology 04/28/20 Luly Gaffney, RN Specialty Fur Tanner Oncology 05/18/20 Richard Jenkins DO [address] [place] [address] Referring Hematology/Oncology 05/25/20 Haroldo Noland MD [address] [facility] [address] [place], [place] [address] Cardiology 06/24/20 Sena Seymour, RN Government Affairs Researcher 10/06/20 Bud Beck DO [address] [facility] [address] [place] [address] Gastroenterology 01/15/24 Helen Gibson 01/29/24 Danielle Kelly APRN.LIFE MANAGEMENT TEACHER [address] [place], [place] [address]671 Loft Worker [facility] 03/15/24 Usha Mcgovern PA-C [address] [place] [address] Loft Worker Family [facility] 03/15/24 Helen Blair MD [address] [id number] Pulmonary and Critical Care Medicine 05/08/24 Physician Relations Specialist Relationship Specialty Start Date End Date Yaw Singh MD [address] [place] [address] PCP - General Family Medicine 08/27/20 Madan Roy MD [address] [place], [place] 12[address]01 Physician Radiation Oncology 04/28/20 Luly Gaffney, RN Specialty Fur Tanner Oncology 05/18/20 Richard Jenkins DO [address] [place] [address] Referring Hematology/Oncology 05/25/20 Haroldo Noland MD [address] [facility] [address] [facility] [address] [place], [place] [address]221 Cardiology 06/24/20 Sena Seymour, RN Government Affairs Researcher 10/06/20 Bud Beck DO [address] [facility] [address] [place], [place] [address]751 Gastroenterology 01/15/24 Helen Gibson 01/29/24 Danielle Kelly APRN.LIFE MANAGEMENT TEACHER [address] [place], [place] [address] Loft Worker Family [facility] 03/15/24 Usha Mcgovern PA-C [address] [place] [address] Loft Worker Family [facility] 03/15/24 Helen Blair MD [address] [phone] Pulmonary and Critical Care Medicine 05/08/24 Physician Relations Specialist Relationship Specialty Start Date End Date Yaw Singh MD [address] [place] [address] PCP - General Family Medicine 08/27/20 Madan Roy MD [address] [place], [place] 162651 Physician Radiation Oncology 04/28/20 Luly Gaffney, RN Specialty Fur Tanner Oncology 05/18/20 Richard Jenkins DO [address] [place] [address] Referring Hematology/Oncology 05/25/20 Haroldo Noland MD [address]61 [facility] [address] [place], [place] 893331 Cardiology 06/24/20 Sena Seymour, MICHELE Government Affairs Researcher 10/06/20 Bud Beck DO [address] [facility] [address] [place], [place] 39[address]51 Gastroenterology 01/15/24 Helen Gibson 01/29/24 Danielle Kelly APRN.LIFE MANAGEMENT TEACHER [address] [place], [place] [phone] Loft Worker Family [facility] 03/15/24 Usha Mcgovern PA-C [address] [place], [place] [phone] Loft Worker Family [facility] 03/15/24 Helen Blair MD [address] [phone] Pulmonary and Critical Care Medicine 05/08/24 Physician Relations Specialist Relationship Specialty Start Date End Date Yaw Singh MD [address] [place], [place] [id number] PCP - General Family Medicine 08/27/20 Madan Roy MD [address] [place], [place] 520931 Physician Radiation Oncology 04/28/20 Luly Gaffney RN Specialty Fur Tanner Oncology 05/18/20 Richard Jenkins DO [address] [facility] [place] [address] Referring Hematology/Oncology 05/25/20 Haroldo Noland MD [address] [facility] [address] [place], [place] [address] Cardiology 06/24/20 Sena Seymour, MICHELE Government Affairs Researcher 10/06/20 Bud Beck DO [address] [facility] [address] [place], [place] 9[address]861 Gastroenterology 01/15/24 Helen Gibson 01/29/24 Danielle Kelly APRN.[facility] [address] [place], [place] 40[address]61 Loft Worker Family Medicine 03/15/24 Usha Mcgovern PA-C [address] [place], [place] 453861 Loft Worker Family Medicine 03/15/24 Helen Blair MD [address] [phone] Pulmonary and Critical Care Medicine 05/08/24 Physician Relations Specialist Relationship Specialty Start Date End Date Yaw Singh MD [address] [place], [place] [id number] PCP - General Family Medicine 08/27/20 Madan Roy MD [address] [place], [place] 410351 Physician Radiation Oncology 04/28/20 Luly Gaffney, RN Specialty Fur Tanner Oncology 05/18/20 Richard Jenkins DO [address] [place] [address] Referring Hematology/Oncology 05/25/20 Haroldo Noland MD [address] [facility] [address] [place], [place] 643481 Cardiology 06/24/20 Sena Seymour RN Government Affairs Researcher 10/06/20 Bud Beck DO [address] [facility] [address] [place] [address] Gastroenterology 01/15/24 Helen Gibson 01/29/24 Danielle Kelly APRN.[facility] [address] [place], [place] 18992691 Loft Worker Family Medicine 03/15/24 Usha Mcgovern PA-C [address] [place] [address] Loft Worker Family Medicine 03/15/24 Helen Blair MD [address] [phone] Pulmonary and Critical Care Medicine 05/08/24 Physician Relations Specialist Relationship Specialty Start Date End Date Yaw Singh MD [address] [place], [place] [id number] PCP - General Family Medicine 08/27/20 Madan oRy MD [address] [place], [place] 6[address]81 Physician Radiation Oncology 04/28/20 Luly Gaffney RN Specialty Fur Tanner Oncology 05/18/20 Richard Jenkins DO [address] [facility] [place] [address] Referring Hematology/Oncology 05/25/20 Haroldo Noland MD [address] [facility] [address] [place], [place] [address]91 Cardiology 06/24/20 Sena Seymour, MICHELE Government Affairs Researcher 10/06/20 Bud Beck DO [address] [facility] [address] [place] [address] Gastroenterology 01/15/24 Helen Gibson 01/29/24 Danielle Kelly APRN.LIFE MANAGEMENT TEACHER [address] [place], [place] [phone] Loft Worker Family [facility] 03/15/24 Usha Mcgovern PA-C [address] [place] [address] Loft Worker Family [facility] 03/15/24 Helen Blair MD [address] [address] Pulmonary and Critical Care Medicine 05/08/24 Physician Relations Specialist Relationship Specialty Start Date End Date Yaw Singh MD [address] [place], [place] [id number] PCP - General Family Medicine 08/27/20 Madan Roy MD [address] [place], [place] 46[address]11 Physician Radiation Oncology 04/28/20 Luly Gaffney, RN Specialty Fur Tanner Oncology 05/18/20 Richard Jenkins DO [address] [place] [address] Referring Hematology/Oncology 05/25/20 Haroldo Noland MD [address] [facility] [address] [place] [address] Cardiology 06/24/20 Sena Seymour, MICHELE Government Affairs Researcher 10/06/20 Bud Beck DO 1761 [facility] [address] [place] [address] Gastroenterology 01/15/24 Helen Gisbon 01/29/24 Danielle Klely APRN.LIFE MANAGEMENT TEACHER [address] [place], [place] [id number] Loft Worker Family [facility] 03/15/24 Usha Mcgovern PA-C [address] [place] [address] Loft Worker Family Medicine 03/15/24 Helen Blair MD [address] [address] Pulmonary and Critical Care Medicine 05/08/24 Physician Relations Specialist Relationship Specialty Start Date End Date Yaw Singh MD [address] [place], [place] [id number] PCP - General Family Medicine 08/27/20 Madan Roy MD [address] [facility] [place] [place] [address] Physician Radiation Oncology 04/28/20 Luly Gaffney RN Specialty Fur Tanner Oncology 05/18/20 Richard Jenkins DO [address] [place] [address] Referring Hematology/Oncology 05/25/20 Haroldo Noland MD 1761 [facility] [address] [place], [place] [address]271 Cardiology 06/24/20 Sena Seymour, MICHELE Government Affairs Researcher 10/06/20 Bud Beck DO [address]61 [facility] [address] [place], [place] 478641 Gastroenterology 01/15/24 Helen Gibson 01/29/24 Danielle Kelly APRN.LIFE MANAGEMENT TEACHER [address] [place], [place] 35560691 Loft Worker Family Medicine 03/15/24 Usha Mcgovern PA-C [address] [place], [place] [phone] Loft Worker Family Medicine 03/15/24 Helen Blair MD [address] [address] Pulmonary and Critical Care Medicine 05/08/24 Team [...] 28, 2024 End: April 28, 2024 Dr. Nikiat Jackson MD Attending Provider Active S tart: [...] Provider Active Start : June 30, 2024 Physician Relations Specialist Relationship Specialty Start Date End Date Yaw Singh MD [address] [place], [place] 253191 PCP - General Family Medicine 08/27/20 Madan Roy MD [address] [place], [place] [phone] Physician Radiation Oncology 04/28/20 Luly Gaffney RN Specialty Fur Tanner Oncology 05/18/20 Richard Jenkins DO [address] [place], [place] 342191 Referring Hematology/Oncology 05/25/20 Haroldo Noland MD [address] [address] [place] [address] Cardiology 06/24/20 Sena Seymour, RN Government Affairs Researcher 10/06/20 Bud Beck DO 1761 [facility] [address] [place] [address] Gastroenterology 01/15/24 Star Gibsona 01/29/24 Danielle Kelly APRN.LIFE MANAGEMENT TEACHER [address] [place], [place] [id number] Loft Worker Family Medicine 03/15/24 Usha Mcgovern PA-C [address] [place], [place] [id number] Loft Worker Family [facility] 03/15/24 Helen Blair MD [address] [place] [address] [phone] Pulmonary and Critical Care Medicine 05/08/24 Physician Relations Specialist Relationship Specialty Start Date End Date Yaw Singh MD [address] [place], [place] [id number] PCP - General Family Medicine 08/27/20 Madan Roy MD [address] [place], [place] 33615691 Physician Radiation Oncology 04/28/20 Luly Gaffney RN Specialty Fur Tanner Oncology 05/18/20 Richard Jenkins DO [address] [place] [address] Referring Hematology/Oncology 05/25/20 Haroldo Noland MD [address] [address] [place] [address] Cardiology 06/24/20 Sena Seymour, RN Government Affairs Researcher 10/06/20 Bud Beck DO [address] [facility] [address] [place] [address] Gastroenterology 01/15/24 Helen Gibson 01/29/24 Danielle Kelly APRN.LIFE MANAGEMENT TEACHER [address] [place], [place] [phone] Loft Worker [facility] 03/15/24 Usha Mcgovern PA-C [address] [place], [place] [phone] Loft Worker Family Medicine 03/15/24 Helen Blair MD [address] [address] Pulmonary and Critical Care Medicine 05/08/24 Josue Oquendo manager infrastructureGeological Sample Tester 07/10/24 Physician Relations Specialist Relationship Specialty Start Date End Date Yaw Singh MD [address] [place], [place] 801641 PCP - General Family Medicine 08/27/20 Madan Roy MD [address] [place] [address] Physician Radiation Oncology 04/28/20 Luly Gaffney RN Specialty Fur Tanner Oncology 05/18/20 Richard Jenkins DO [address] [place] [address] Referring Hematology/Oncology 05/25/20 Haroldo Noland MD [address] [place] [address] [place] [address] Cardiology 06/24/20 Sena Seymour, RN Government Affairs Researcher 10/06/20 Bud Beck DO [address] [place] [address] Gastroenterology 01/15/24 Helen Gibson 01/29/24 Danielle Kelly APRN.LIFE MANAGEMENT TEACHER [address] [place], [place] 78[address] Loft Worker Family Medicine 03/15/24 Usha Mcgovern PA-C [address] [place], [place] 035821 Loft Worker Family Medicine 03/15/24 Helen Blair MD [address] [facility] [address] Pulmonary and Critical Care Medicine 05/08/24 Josue Oquendo, manager infrastructureGeological Sample Tester 07/10/24 Physician Relations Specialist Relationship Specialty Start Date End Date Yaw Singh MD [address] [place], [place] [phone] PCP - General Family Medicine 08/27/20 Madan Roy MD [address] [place], [place] [phone] Physician Radiation Oncology 04/28/20 Luly Gaffney RN Specialty Fur Tanner Oncology 05/18/20 Richard Jenkins DO [address] [place], [place] [phone] Referring Hematology/Oncology 05/25/20 Haroldo Noland MD [address] [facility] [address] [place], [place] 529881 Cardiology 06/24/20 Sena Seymour, MICHELE Government Affairs Researcher 10/06/20 Bud Beck DO [address] [facility] [address] [place], [place] [id number] Gastroenterology 01/15/24 Helen Gibson 01/29/24 Danielle Kelly APRN.LIFE MANAGEMENT TEACHER [address] [place], [place] [phone] Loft Worker Family [facility] 03/15/24 Usha Mcgovern PA-C [address] [place], [place] [phone] Loft Worker [facility] 03/15/24 Helen Blair MD [address] [place] [address] Pulmonary and Critical Care Medicine 05/08/24 Josue Oquendo, manager infrastructureGeological Sample Tester 07/10/24 Physician Relations Specialist Relationship Specialty Start Date End Date Yaw Singh MD [address] [place] [address] PCP - General Family Medicine 08/27/20 Madan Roy MD [address] [place] [address] Physician Radiation Oncology 04/28/20 Luly Gaffney RN Specialty Fur Tanner Oncology 05/18/20 Richard Jenkins DO [address] [place] [address] Referring Hematology/Oncology 05/25/20 Haroldo Noland MD [address] [facility] [address] [place] [address] Cardiology 06/24/20 Sena Seymour, MICHELE Government Affairs Researcher 10/06/20 Bud Beck DO [address] [address] [place], [place] [address] Gastroenterology 01/15/24 Helen Gibson 01/29/24 Danielle Kelly APRN.LIFE MANAGEMENT TEACHER [address] [place], [place] 645311 Loft Worker Family Medicine 03/15/24 Usha Mcgovern PA-C [address] [place], [place] 242411 Loft Worker Family Medicine 03/15/24 Helen Blair MD [address] [place] [address] [phone] Pulmonary and Critical Care Medicine 05/08/24 Josue Oquendo, manager infrastructureGeological Sample Tester 07/10/24 08/19/24 Physician Relations Specialist Relationship Specialty Start Date End Date Yaw Singh MD [address] [place], [place] [phone] PCP - General Family Medicine 08/27/20 Madan Roy MD [address] [place], [place] [phone] Physician Radiation Oncology 04/28/20 Luly Gaffney RN Specialty Fur Tanner Oncology 05/18/20 Rcihard Jenkins DO [address] [place], [place] [phone] Referring Hematology/Oncology 05/25/20 Haroldo Noland MD [address] [place] [place], [place] [id number] Cardiology 06/24/20 Sena Seymour, RN Government Affairs Researcher 10/06/20 Bud Beck DO [address] [place] [address] [place], [place] 06659[address] Gastroenterology 01/15/24 Helen Gibson 01/29/24 Danielle Kelly APRN.[facility] [address] [place], [place] [phone] [facility] 03/15/24 Usha Mcgovern PA-C [address] [place], [place] [phone] [facility] 03/15/24 Helen Blair MD [address] [place] [address] [phone] Pulmonary and Critical Care Medicine 05/08/24 Physician Relations Specialist Relationship Specialty Start Date End Date Yaw Singh MD [address] [place], [place] [id number] PCP - General Family Medicine 08/27/20 Madan Roy MD [address] [place], [place] 68636691 Physician Radiation Oncology 04/28/20 Luly Gaffney RN Specialty Fur Tanner Oncology 05/18/20 Richard Jenkins DO [address] [place], [place] [phone] Referring Hematology/Oncology 05/25/20 Haroldo Noland MD [address] [place], [place] [id number] Cardiology 06/24/20 Sena Seymour, MICHELE Government Affairs Researcher 10/06/20 uBd Beck DO [address] [place], [place] [id number] Gastroenterology 01/15/24 Helen Gibson 01/29/24 Danielle Kelly APRN.LIFE MANAGEMENT TEACHER [address] [place], [place] [phone] [facility] 03/15/24 Usha Mcgovren PA-C [address] [place], [place] [phone] [facility] 03/15/24 Helen Blair MD [address] [phone] Pulmonary and Critical Care Medicine 05/08/24 Physician Relations Specialist Relationship Specialty Start Date End Date Yaw Singh MD [address] [place], [place] [phone] PCP - General Family Medicine 08/27/20 Madan Roy MD [address] [place], [place] [phone] Physician Radiation Oncology 04/28/20 Luly Gaffney RN Specialty Fur Tanner Oncology 05/18/20 Richard Jenkins DO [address] [place], [place] [phone] Referring Hematology/Oncology 05/25/20 Haroldo Noland MD [address] [place], [place] 32526691 Cardiology 06/24/20 Sena Seymour, MICHELE Government Affairs Researcher 10/06/20 Bud Beck DO [address] [place], [place] 03100691 Gastroenterology 01/15/24 Helen Gibson 01/29/24 Danielle Kelly APRN.LIFE MANAGEMENT TEACHER [address] [place], [place] [phone] [facility] 03/15/24 08/24/24 Usha Mcgovern PA-C [address] [place], [place] [phone] [facility] 03/15/24 Helen Blair MD [address] [place] [address] [phone] Pulmonary and Critical Care Medicine 05/08/24 Josue Oquendo RN Geological Sample Tester 07/10/24 08/19/24 Physician Relations Specialist Relationship Specialty Start Date End Date Yaw Singh MD [address] [place], [place] [phone] PCP - General Family Medicine 08/27/20 Madan Roy MD [address] [place], [place] 12685691 Physician Radiation Oncology 04/28/20 Luly Gaffney RN Specialty Fur Tanner Oncology 05/18/20 Richard Jenkins DO [address] [place], [place] 40239691 Referring Hematology/Oncology 05/25/20 Haroldo Noland MD [address] [phone] Cardiology 06/24/20 Sena Seymour, MICHELE Government Affairs Researcher 10/06/20 Bud Beck DO [address] [address] Gastroenterology 01/15/24 Helen Gibson 01/29/24 Usha Mcgovern PA-C [address] [place], [place] 124171 Loft Worker Family Medicine 03/15/24 Helen Blair MD [address] [place] [address] Pulmonary and Critical Care Medicine 05/08/24 Team [...] September 02, 2024 End: September 02, 2024 Physician Relations Specialist Relationship Specialty Start Date End Date Yaw Singh MD [address] [place] [address] PCP - General Family Medicine 08/27/20 Madan Roy MD [address] [place] [address] Physician Radiation Oncology 04/28/20 Luly Gaffney RN Specialty Fur Tanner Oncology 05/18/20 Richard Jenkins DO [address] [place] [address] Referring Hematology/Oncology 05/25/20 Haroldo Noland MD [address] [address] [place] [address] Cardiology 06/24/20 Sena Seymour, MICHELE Government Affairs Researcher 10/06/20 Bud Beck DO [address] [facility] [address] [place] [address] Gastroenterology 01/15/24 Helen Gibson 01/29/24 Usha Mcgovern PA-C [address] [place] [address] Loft Worker Family Medicine 03/15/24 Helen Blair MD [address] [address] Pulmonary and Critical Care Medicine 05/08/24 Physician Relations Specialist Relationship Specialty Start Date End Date Yaw Singh MD [address] [place] [address] PCP - General Family Medicine 08/27/20 Madan Roy MD [address] [place] [address] Physician Radiation Oncology 04/28/20 Luly Gaffney RN Specialty Fur Tanner Oncology 05/18/20 Richard Jenkins DO [address] [place], [place] 390565 [phone] Referring Hematology/Oncology 05/25/20 Haroldo Noland MD [address] [facility] [address] [place] [address] Cardiology 06/24/20 Sena Seymour, RN Government Affairs Researcher 10/06/20 Bud Beck DO [address] [facility] [address] [place], [place] 521481 Gastroenterology 01/15/24 Helen Gibson 01/29/24 Helen Blair MD [address] [facility]. [address] [place] [address] [phone] Pulmonary and Critical Care Medicine 05/08/24 Danielle Kelly APRN.[facility] [address] [place], [place] [phone] Loft Worker Family Medicine 09/08/24 Usha Mcgovern PA-C [address] [place], [place] 689521 Loft Worker [facility] 09/08/24 Physician Relations Specialist Relationship Specialty Start Date End Date Yaw Singh MD [address] [place] [address] PCP - General Family Medicine 08/27/20 Madan Roy MD [address] [place] [address] Physician Radiation Oncology 04/28/20 Luly Gaffney, MICHELE Specialty Fur Tanner Oncology 05/18/20 Richard Jenkins DO [address] [place] [address] Referring Hematology/Oncology 05/25/20 Haroldo Noland MD [address] [facility] [address] [place], [place] 187071 Cardiology 06/24/20 Sena Seymour, RN Government Affairs Researcher 10/06/20 Bud Beck DO [address] [facility] [address] [place], [place] 713431 Gastroenterology 01/15/24 Helen Gibson 01/29/24 Danielle Kelly BOATING SAFETY OFFICER.LIFE MANAGEMENT TEACHER [facility] [place] [address] [facility] 03/15/24 08/24/24 Usha Mcgovern PA-C [address] [place], [place] 699381 [facility] 03/15/24 09/07/24 Helen Blair MD [address] [address] Pulmonary and Critical Care Medicine 05/08/24 Josue Oquendo manager infrastructureGeological Sample Tester 07/10/24 08/19/24 Danielle Kelly, BOATING SAFETY OFFICER.LIFE MANAGEMENT TEACHER [address] [place] [address] [facility] 09/08/24 Usha Mcgovern PA-C [address] [place], [place] [phone] [facility] 09/08/24 Physician Relations Specialist Relationship Specialty Start Date End Date Yaw Singh MD [address] [place], [place] [phone] PCP - General Family Medicine 08/27/20 Madan Roy MD [address] [facility] [place] [phone] Physician Radiation Oncology 04/28/20 Luly Gaffney, RN Specialty Fur Tanner Oncology 05/18/20 Richard Jenkins DO [address] [place], [place] [phone] Referring Hematology/Oncology 05/25/20 Haroldo Noland MD [address] [facility] [address] [place], [place] 10668691 Cardiology 06/24/20 Snea Seymour, MICHELE Government Affairs Researcher 10/06/20 Bud Beck DO [address] [facility] [address] [place] [address] Gastroenterology 01/15/24 Helen Gibson 01/29/24 Helen Blair MD [address] [address] Pulmonary and Critical Care Medicine 05/08/24 Danielle Kelly APRN.LIFE MANAGEMENT TEACHER [address] [place], [place] [phone] Loft Worker Family Medicine 09/08/24 Usha Mcgovern PA-C [address] [place], [place] [phone] Loft Worker Family Medicine 09/08/24 Physician Relations Specialist Relationship Specialty Start Date End Date Yaw Singh MD [address] [place], [place] [id number] PCP - General Family Medicine 08/27/20 Madan Roy MD [address] [facility] [place], [place] [phone] Physician Radiation Oncology 04/28/20 Luly Gaffney RN Specialty Fur Tanner Oncology 05/18/20 Richard Jenkins DO [address] [place], [place] 287471 Referring Hematology/Oncology 05/25/20 Haroldo Noland MD [address] [facility] [address] [place], [place] [address] Cardiology 06/24/20 Sena Seymour, MICHELE Government Affairs Researcher 10/06/20 Bud Beck DO [address] [facility] [address] [place], [place] 441551 Gastroenterology 01/15/24 Helen Gibson 01/29/24 Helen Blair MD [address] [phone] Pulmonary and Critical Care Medicine 05/08/24 Danielle Kelly, ADALGISA.LIFE MANAGEMENT TEACHER [address] [place], [place] [phone] Loft Worker Family Medicine 09/08/24 Usha Mcgovern PA-C [address] [place], [place] [phone] Loft Worker Family Medicine 09/08/24 Team Status: Inactive Member Role Status Dates Dr. Yaw Singh MD Primary Care Provider Active Start: September 17, 2024 End: September 17, 2024 Dr. Sushant Tom MD Emergency Provider Active Sta rt: September 17, 2024 End: September 17, 2024 Physician Relations Specialist Relationship Specialty Start Date End Date Yaw Singh MD [address] [place], [place] [id number] PCP - General Family Medicine 08/27/20 Madan Roy MD [address] [place], [place] 232281 Physician Radiation Oncology 04/28/20 Luly Gaffney RN Specialty Fur Tanner Oncology 05/18/20 Richard Jenkins DO [address] [place], [place] [phone] Referring Hematology/Oncology 05/25/20 Haroldo Noland MD [address] [facility] [address] [place] [address] Cardiology 06/24/20 Sena Seymour, RN Government Affairs Researcher 10/06/20 Bud Beck DO [address] [facility] [address] [place], [place] 782291 Gastroenterology 01/15/24 Helen Gibson 01/29/24 Helen Blair MD [address] [phone] Pulmonary and Critical Care Medicine 05/08/24 Danielle Kelly APRN.LIFE MANAGEMENT TEACHER [address] [place], [place] [phone] Loft Worker Family Medicine 09/08/24 Usha Mcgovern PA-C [address] [place], [place] [id number] Loft Worker Family Medicine 09/08/24 Physician Relations Specialist Relationship Specialty Start Date End Date Yaw Singh MD [address] [place], [place] [id number] PCP - General Family Medicine 08/27/20 Madan Roy MD [address] [place] [place], [place] [id number] Physician Radiation Oncology 04/28/20 Luly Gaffney, MICHELE Specialty Fur Tanner Oncology 05/18/20 Richard Jenkins DO [address] [place], [place] [phone] Referring Hematology/Oncology 05/25/20 Haroldo Noland MD [address] [facility] [address] [place] [address] Cardiology 06/24/20 Sena Seymour, MICHELE Government Affairs Researcher 10/06/20 Bud Beck DO [address] [facility] [address] [place], [place] [id number] Gastroenterology 01/15/24 Helen Gibson 01/29/24 Helen Blair MD [address] [id number] Pulmonary and Critical Care Medicine 05/08/24 Danielle Kelly APRN.LIFE MANAGEMENT TEACHER [address] [place], [place] [phone] Loft Worker Family [facility] 09/08/24 Usha Mcgovern PA-C [address] [place], [place] 326511 Loft Worker Family Medicine 09/08/24 Physician Relations Specialist Relationship Specialty Start Date End Date Yaw Singh MD [address] [place], [place] 881131 PCP - General Family Medicine 08/27/20 Madan Roy MD [address] [place] [address] Physician Radiation Oncology 04/28/20 Luly Gaffney RN Specialty Fur Tanner Oncology 05/18/20 Richard Jenkins DO [address] [place] [place], [place] [phone] Referring Hematology/Oncology 05/25/20 Haroldo Noland MD [address] [place] [address] Cardiology 06/24/20 Sena Seymour, MICHELE Government Affairs Researcher 10/06/20 Bud Beck DO [address] [place] [address] [place] [address] Gastroenterology 01/15/24 Helen Gibson 01/29/24 Helen Blair MD [address] [address] Pulmonary and Critical Care Medicine 05/08/24 Danielle Kelly APRN.LIFE MANAGEMENT TEACHER [address] [place], [place] [phone] Loft Worker Family [facility] 09/08/24 Usha Mcgovern PA-C [address] [place] [address] Loft Worker Family Medicine 09/08/24 Physician Relations Specialist Relationship Specialty Start Date End Date Yaw Singh MD [address] [place], [place] 823641 PCP - General Family Medicine 08/27/20 Madan Roy MD [address] [place] [address] Physician Radiation Oncology 04/28/20 Luly Gaffney RN Specialty Fur Tanner Oncology 05/18/20 Richard Jenkins DO [address] [place], [place] [phone] Referring Hematology/Oncology 05/25/20 Haroldo Noland MD [address] [place] [address] [place] [address] Cardiology 06/24/20 Sena Seymour, RN Government Affairs Researcher 10/06/20 Bud Beck DO [address] [place] [address] [place] [address] Gastroenterology 01/15/24 Helen Gibson 01/29/24 Helen Blair MD [address] [address] Pulmonary and Critical Care Medicine 05/08/24 Danielle Kelly APRN.LIFE MANAGEMENT TEACHER [address] [place], [place] 280131 Loft Worker Family Medicine 09/08/24 Usha Mcgovern PA-C [address] [place] [address] Loft Worker Family Medicine 09/08/24 Physician Relations Specialist Relationship Specialty Start Date End Date Yaw Singh MD [address] [place] [address] PCP - General Family Medicine 08/27/20 Madan Roy MD [address] [place], [place] 051091 Physician Radiation Oncology 04/28/20 Luly Gaffney RN Specialty Fur Tanner Oncology 05/18/20 Richard Jenkins DO [address] [place], [place] [phone] Referring Hematology/Oncology 05/25/20 Haroldo Noland MD [address] [place] [address] [place] [address] Cardiology 06/24/20 Sena Seymour, MICHELE Government Affairs Researcher 10/06/20 Bud Beck DO [address] [place] [address] [place], [place] 048151 Gastroenterology 01/15/24 Helen Gibson 01/29/24 Helen Blair MD [address] [place] [address] Pulmonary and Critical Care Medicine 05/08/24 Danielle Kelly APRN.LIFE MANAGEMENT TEACHER [address] [place] [address] [id number] Loft Worker Family Medicine 09/08/24 Usha Mcgovern PA-C [address] [facility] [place] [address] Loft Worker Family Medicine 09/08/24 Physician Relations Specialist Relationship Specialty Start Date End Date Yaw Singh MD [address] [facility] [place] [address] PCP - General Family Medicine 08/27/20 Madan Roy MD [address] [place] [address] Physician Radiation Oncology 04/28/20 Luly Gaffney RN Specialty Fur Tanner Oncology 05/18/20 Richard Jenkins DO [address] [place], [place] [phone] Referring Hematology/Oncology 05/25/20 Haroldo Noland MD [address] [facility] [address] [place] [address] Cardiology 06/24/20 Sena Seymour, MICHELE Government Affairs Researcher 10/06/20 Bud Beck DO [address]61 [facility] [address] [place], [place] 105681 Gastroenterology 01/15/24 Helen Gibson 01/29/24 Helen Blair MD [address] [id number] Pulmonary and Critical Care Medicine 05/08/24 Danielle Kelly APRN.LIFE MANAGEMENT TEACHER [address] [place], [place] 115951 Loft Worker Family Medicine 09/08/24 Usha Mcgovern PA-C [address] [facility], [place] 568931 Loft Worker Family Medicine 09/08/24 Physician Relations Specialist Relationship Specialty Start Date End Date Yaw Singh MD [address] [facility] [place] [address] PCP - General Family Medicine 08/27/20 Madan Roy MD [address] [place] [facility] [place] [address] Physician Radiation Oncology 04/28/20 Luly Gaffney RN Specialty Fur Tanner Oncology 05/18/20 Richard Jenkins DO [address] [place], [place] [phone] Referring Hematology/Oncology 05/25/20 Haroldo Noland MD [address] [facility] [address] [place] [address] Cardiology 06/24/20 Sena Seymour, RN Government Affairs Researcher 10/06/20 Bud Beck DO [address] [facility] [address] [place], [place] 179151 Gastroenterology 01/15/24 Helen Gibsno 01/29/24 Helen Blair MD [address] [address] Pulmonary and Critical Care Medicine 05/08/24 Danielle Kelly APRN.LIFE MANAGEMENT TEACHER [address] [facility] [place] [address] Loft Worker Family [facility] 09/08/24 Usha Mcgovern PA-C [address] [place] [address] Loft Worker Family Medicine 09/08/24 Team Status: Active Member Role/Relationship Status [...] Provider Active Start : October 15, 2024 Physician Relations Specialist Relationship Specialty Start Date End Date Yaw Singh MD [address] [place], [place] [phone] PCP - General Family Medicine 08/27/20 Madan Roy MD [address] [place], [place] [phone] Physician Radiation Oncology 04/28/20 Luly Gaffney RN Specialty Fur Tanner Oncology 05/18/20 Richard Jenkins DO [address] [place], [place] [phone] Referring Hematology/Oncology 05/25/20 Haroldo Noland MD [address] [id number] Cardiology 06/24/20 Sena Seymour, MICHELE Government Affairs Researcher 10/06/20 Bud Beck DO [address] [facility] [address] [place], [place] 555111 Gastroenterology 01/15/24 Helen Gibson 01/29/24 Helen Blair MD [address] [address] Pulmonary and Critical Care Medicine 05/08/24 Danielle Kelly APRN.LIFE MANAGEMENT TEACHER [address] [place], [place] 780441 Loft Worker Family Medicine 09/08/24 Usha Mcgovern PA-C [address] [place], [place] 614351 Loft Worker Family [facility] 09/08/24 Physician Relations Specialist Relationship Specialty Start Date End Date Yaw Singh MD [address] [place], [place] 341041 PCP - General Family Medicine 08/27/20 Madan Roy MD [address] [place] [place], [place] 265891 Physician Radiation Oncology 04/28/20 Luly Gaffney RN Specialty Fur Tanner Oncology 05/18/20 Richard Jenkins DO [address] [place], [place] 405801 Referring Hematology/Oncology 05/25/20 Haroldo Noland MD [address] [facility] [address] [place] [address] Cardiology 06/24/20 Sena Seymour RN Government Affairs Researcher 10/06/20 Bud Beck DO [address] [facility] [address] [place], [place] 835681 Gastroenterology 01/15/24 Helen Gibson 01/29/24 Helen Blair MD [address] [address] Pulmonary and Critical Care Medicine 05/08/24 Danielle Kelly APRN.LIFE MANAGEMENT TEACHER [address] [place], [place] [phone] Loft Worker Family Medicine 09/08/24 Usha Mcgovern PA-C [address] [place], [place] [phone] Loft Worker [facility] 09/08/24 Physician Relations Specialist Relationship Specialty Start Date End Date Yaw Singh MD [address] [place], [place] [phone] PCP - General Family Medicine 08/27/20 Madan Roy MD [address] [place], [place] 992611 Physician Radiation Oncology 04/28/20 Luly Gaffney RN Specialty Fur Tanner Oncology 05/18/20 Richard Jenkins DO [address] [place], [place] [phone] Referring Hematology/Oncology 05/25/20 Haroldo Noland MD [address] [facility] [address] [place] [address] Cardiology 06/24/20 Sena Seymour, MICHELE Government Affairs Researcher 10/06/20 Bud Beck DO [address] [facility] [address] [place], [place] 587311 Gastroenterology 01/15/24 Helen Gibson 01/29/24 Helen Blair MD [address] [address] Pulmonary and Critical Care Medicine 05/08/24 Danielle Kelly APRN.LIFE MANAGEMENT TEACHER [address] [place], [place] [phone] Loft Worker [facility] 09/08/24 Usha Mcgovern PA-C [address] [place], [place] [phone] [facility] 09/08/24 Physician Relations Specialist Relationship Specialty Start Date End Date Yaw Singh MD [address] [place], [place] [id number] PCP - General Family Medicine 08/27/20 Madan Roy MD [address] [place], [place] 935651 Physician Radiation Oncology 04/28/20 Luly Gaffney RN Specialty Fur Tanner Oncology 05/18/20 Richard Jenkins DO [address] [place], [place] [phone] Referring Hematology/Oncology 05/25/20 Haroldo Noland MD [address] [facility] [address] [place], [place] 783581 Cardiology 06/24/20 Sena Seymour, MICHELE Government Affairs Researcher 10/06/20 Bud Beck DO [address] [facility] [address] [place], [place] 663451 Gastroenterology 01/15/24 Helen Gibson 01/29/24 Helen Blair MD [address] [phone] Pulmonary and Critical Care Medicine 05/08/24 Danielle Kelly APRN.LIFE MANAGEMENT TEACHER [address] [place], [place] [phone] Loft Worker Family Medicine 09/08/24 Usha Mcgovern PA-C [address] [place], [place] [phone] Loft Worker [facility] 09/08/24 Physician Relations Specialist Relationship Specialty Start Date End Date Yaw Singh MD [address] [place], [place] [id number] PCP - General Family Medicine 08/27/20 Madan Roy MD [address] [facility] [place] [address] Physician Radiation Oncology 04/28/20 Luly Gaffney RN Specialty Fur Tanner Oncology 05/18/20 Richard Jenkins DO [address] [facility] [place] [phone] Referring Hematology/Oncology 05/25/20 Haroldo Noland MD [address] [facility] [address] [place], [place] 725981 Cardiology 06/24/20 Sena Seymour, MICHELE Government Affairs Researcher 10/06/20 Bud Beck DO [address] [facility] [address] [place], [place] 362871 Gastroenterology 01/15/24 Helen Gibson 01/29/24 Helen Blair MD [address] [address] Pulmonary and Critical Care Medicine 05/08/24 Danielle Kelly APRN.LIFE MANAGEMENT TEACHER [address] [place], [place] [phone] Loft Worker Family Medicine 09/08/24 Usha Mcgovern PA-C [address] [place], [place] [phone] Loft Worker Family [facility] 09/08/24 Physician Relations Specialist Relationship Specialty Start Date End Date Yaw Singh MD [address] [place], [place] [phone] PCP - General Family Medicine 08/27/20 Madan Roy MD [address] [facility] [place] 651761 Physician Radiation Oncology 04/28/20 Luly Gaffney RN Specialty Fur Tanner Oncology 05/18/20 Richard Jenkins DO [address] [place], [place] [phone] Referring Hematology/Oncology 05/25/20 Haroldo Noland MD [address] [facility] [address] [place], [place] 032391 Cardiology 06/24/20 Sena Seymour RN Government Affairs Researcher 10/06/20 Bud Beck DO [address] [facility] [facility] [address] [place], [place] 372201 Gastroenterology 01/15/24 Helen Gibson 01/29/24 Helen Blair MD [address] [phone] Pulmonary and Critical Care Medicine 05/08/24 Danielle Kelly APRN.[facility] [address] [place], [place] [phone] [facility] 09/08/24 Usha Mcgovern PA-C [address] [place], [place] [phone] [facility] 09/08/24 Physician Relations Specialist Relationship Specialty Start Date End Date Yaw Singh MD [address] [place], [place] [id number] PCP - General Family Medicine 08/27/20 Madan Roy MD [address] [place], [place] [phone] Physician Radiation Oncology 04/28/20 Luly Gaffney RN Specialty Fur Tanner Oncology 05/18/20 Richard Jenkins DO [address] [place], [place] [phone] Referring Hematology/Oncology 05/25/20 Haroldo Noland MD [address] [facility] [address] [place], [place] 885221 Cardiology 06/24/20 Sena Seymour RN Government Affairs Researcher 10/06/20 Bud Beck DO [address] [address] Gastroenterology 01/15/24 Star Gibsona 01/29/24 Helen Blair MD [address] [place] [address] [id number] Pulmonary and Critical Care Medicine 05/08/24 Danielle Kelly APRN.LIFE MANAGEMENT TEACHER [address] [place] [address] [facility] 09/08/24 Usha Mcgovern PA-C [address] [place] [address] [facility] 09/08/24 Team Status: Inactive Member Role/Relationship Status [...] December 03, 2024 End: December 03, 2024 Physician Relations Specialist Relationship Specialty Start Date End Date Yaw Singh MD [address] [place], [place] [phone] PCP - General Family Medicine 08/27/20 Madan Roy MD [address] [facility] [place] 16247691 Physician Radiation Oncology 04/28/20 Luly Gaffney RN Specialty Fur Tanner Oncology 05/18/20 Richard Jenkins DO [address] [facility] [place], [place] [phone] Referring Hematology/Oncology 05/25/20 Haroldo Noland MD [address] [facility] [address] [place], [place] [phone] Cardiology 06/24/20 Sena Seymour, MICHELE Government Affairs Researcher 10/06/20 Bud Beck DO [address] [facility] [address] [place], [place] [phone] Gastroenterology 01/15/24 Helen Gibson 01/29/24 Helen Blair MD [address] [address] Pulmonary and Critical Care Medicine 05/08/24 Danielle Kelly APRN.LIFE MANAGEMENT TEACHER [address] [place], [place] [phone] Loft Worker [facility] 09/08/24 Usha Mcgovern PA-C [address] [place], [place] [phone] [facility] 09/08/24 Physician Relations Specialist Relationship Specialty Start Date End Date Yaw Singh MD [address] [place], [place] [phone] PCP - General Family Medicine 08/27/20 Madan Roy MD [address] [facility] [place], [place] [phone] Physician Radiation Oncology 04/28/20 Luly Gaffney RN Specialty Fur Tanner Oncology 05/18/20 Richard Jenkins DO [address] [place], [place] [phone] Referring Hematology/Oncology 05/25/20 Haroldo Noland MD [address] [place], [place] [phone] Cardiology 06/24/20 Sena Seymour, MICHELE Government Affairs Researcher 10/06/20 Bud Beck DO [address] [place], [place] [phone] Gastroenterology 01/15/24 Helen Gibson 01/29/24 Helen Blair MD [address] [address] Pulmonary and Critical Care Medicine 05/08/24 Danielle Kelly APRN.LIFE MANAGEMENT TEACHER [address] [place], [place] [phone] Loft Worker Family [facility] 09/08/24 Usha Mcgovern PA-C [address] [place], [place] [phone] [facility] 09/08/24 Physician Relations Specialist Relationship Specialty Start Date End Date Yaw Singh MD [address] [place], [place] [phone] PCP - General Family Medicine 08/27/20 Madan Roy MD [address] [facility] [place] [phone] Physician Radiation Oncology 04/28/20 Luly Gaffney RN Specialty Fur Tanner Oncology 05/18/20 Richard Jenkins DO [address] [facility] [place] [phone] Referring Hematology/Oncology 05/25/20 Haroldo Noland MD [address] [place], [place] [phone] Cardiology 06/24/20 Sena Seymour, MICHELE Government Affairs Researcher 10/06/20 Bud Beck DO [address] [place], [place] [phone] Gastroenterology 01/15/24 Helen Gibson 01/29/24 Helen Blair MD [address] [place] [address] Pulmonary and Critical Care Medicine 05/08/24 Danielle Kelly APRN.CNP [address] [place], [place] [phone] [facility] 09/08/24 Usha Mcgovern PA-C [address] [place], [place] [phone] [facility] 09/08/24 Goals (unrecognized section and content) Goals [...] BE BASED ON THE PRIMARY CLINICAL RECORDS. [facility] [employer] [facility]. provides no warranty or guarantee of the accuracy or completeness of information in this document.
[2025-04-08 07:37] LABS: Anion Gap 7 (7-18); BUN 22 mg/dL (4-19); BUN/Creat Ratio 7.3 RATIO (10-20); Calcium,Total 7.9 mg/dL (7.6-11.0); Carbon Dioxide 31.3 mmol/L (20.0-29.0); Chloride 100 mmol/L (96-106); Estimated Creatinine Clearance 21.12 ml/min (50-250); Glucose 78 mg/dL (70-99); Potassium 4.6 mmol/L (3.5-5.1)
[2025-04-08 08:12] VITALS: BP 107/63; PULSE 83; RESP 17; O2SAT 100
[2025-04-08 09:10] VITALS: BP 107/63; PULSE 70; RESP 16; TEMP 36.6; O2SAT 100
== END 2025-04-08 09:10 | disposition home or self-care (01) ==
PROVIDERS: Emergency Provider Student in an Organized Health Care Education/Training Program; PCP Family Medicine; Visit Provider Student in an Organized Health Care Education/Training Program
DX: I12.0 Hypertensive chronic kidney disease with stage 5 chronic kidney disease or end stage renal disease (principal); N18.6 End stage renal disease; T82.590A Other mechanical complication of surgically created arteriovenous fistula, initial encounter; R22.32 Localized swelling, mass and lump, left upper limb; Z99.2 Dependence on renal dialysis; Z95.5 Presence of coronary angioplasty implant and graft
CPT/HCPCS: 71046; 80048; 85025; 93990; 99282; A4216